=== PATIENT | male | born 1995 | race Caucasian/White ===

== ENCOUNTER 2017-05-17 07:58 | Observation (INO) | payer MEDICAID, SELFPAY ==
[2017-05-17] VITALS (11 sets, daily range): BP systolic 104–138; BP diastolic 69–85; PULSE 54–142; RESP 16–20; TEMP 36.3–36.7; O2SAT 96–100; BMI 23.3; BMI 25.0
--- NOTE | 2017-05-17 08:15 | RAD_ITS ---
STUDY: X-RAY CHEST REASON FOR EXAM: Male, 22 years old. Cough. Increased shortness of breath. TECHNIQUE: PA and lateral views of the chest. COMPARISON: Comparison is made with prior study dated January 13, 2017. FINDINGS: The lungs are clear and expanded. There is no demonstrated pleural abnormality. Normal size heart. Normal mediastinum and nikolas. Normal visualized pulmonary arteries. Normal visualized aortic arch and descending thoracic aorta. Normal visualized thoracic spine. Normal visualized ribs, clavicles, and shoulders. There is no demonstrated abnormality of the visualized soft tissue structures of the upper abdomen. RAD/Chest PA and Lateral IMPRESSION: Normal x-ray examination of the chest. Electronically Signed: David Babin MD at 8:56 EDT Tel [phone], Service support ,
--- NOTE | 2017-05-17 08:15 | EKG12_ITS ---
Test Reason : TACHY Blood Pressure : / mmHG Vent. Rate : 137 BPM Atrial Rate : 137 BPM P-R Int : 136 ms QRS Dur : 076 ms QT Int : 288 ms P-R-T Axes : 080 084 060 degrees QTc Int : 434 ms Sinus tachycardia Right atrial enlargement Borderline ECG Confirmed by FRANDY MIRELES, KAILEY ([id number]), editor producer MARY ROBERT ([id number] on 05/19/2017 1:01:56 PM Referred By: Confirmed By:KAILEY WISE MD
--- NOTE | 2017-05-17 08:29 | ED.DCSUM_ITS ---
- ER Visit Summary Date of Service: 05/17/17 [place] Complaint[place] [id number] getting out of bed and 0700 at work History of Present Illness: The patient is a 22 M with history of type 1 diabetes since the age of 8 who presents with near syncope so ?2. He states he feels as if he is floating. He states he does not feel well. He does not believe his blood sugar is elevated since he does not have increased thirst or urination. He denies any fever, chills or night sweats. He denies any ocular, visual or auditory symptoms. He denies sore throat or difficulty swallowing. He denies chest discomfort. Does complain of palpitations. He reported shortness of breath earlier, but presently he does not. He denies any abdominal pain, nausea, vomiting or diarrhea. He denies any dysuria, frequency , urgency or hematuria. He denies any myalgias or arthralgias. He denies any paresthesia, anesthesia or motor weakness. He denies any problems with balance. He states his heart rates up because he walked from work. Physical Examination: Since vitals are marked for a heart rate of 142. Respiratory rates document 20. He is breathing more rapidly than 20. He appears pale. He does not appear well. Head is atraumatic normocephalic. Pupils are equal round reactive. Extraocular muscles are intact. TMs are pearly white with landmarks noted. Nares patent with no drainage. Posterior pharynx without erythema or exudate. Uvula is midline. There is no dysphonia or dysphasia. Trachea is midline. There is no stridor with auscultation of the neck. Heart is rapid and regular without murmur, gallop or rub. Lungs are clear to auscultation with good movement of air bilaterally. There is no egophony. Breath sounds are symmetric. Abdomen is soft and nontender. There is no guarding or peritoneal findings. There is no palpable pulsatile mass. There is no abdominal bruit. Zamudio sign is negative. Negative Rovsing sign. There is no evidence of inguinal or umbilical hernia. He does have 2 scars which are well-healed. He apparently had abdominal wall abscesses and severe sepsis in the past. Patient is alert and oriented ?3. Motor is 5 over 5. Sensory is intact. DTRs are symmetric with no clonus or Babinski sign. Cranial 2 through 12 are intact. Cerebellar testing is normal. Test Results: EKG reveals a sinus tachycardia rate of 137. There appears to be right atrial enlargement. CBC is unremarkable. BMP is marked for CO2 of 18 and anion gap was 16. Glucose is 132. BUN is slightly elevated at 24. Urinalysis is remarkable for bilirubin and urobilinogen. For this reason a hepatic panel was ordered and indicates slight elevation in alk phos, 231. Troponin is less than 0.02. D-dimer is less than 0.27. Lactate is elevated 4.0. Urinalysis is negative for nitrites and blood. There is no pyuria; however, he does have bacteria. A urine culture was ordered. Emergency Department Course and Treatment: Patient was placed on a monitor and IV was established. 12-lead EKG was obtained as well as chest x-ray and appropriate blood work to evaluate his symptoms. Because patient is tachycardic and complained of shortness of breath with a pulse ox of 94% which is abnormal for a 22-year-old a d-dimer was ordered. Will assess his blood sugar as well. CBC was obtained to evaluate H&H. BMP to assess his CO2 and anion gap as well as blood sugar and electrolytes. Treatment Plan: IV fluids. Patient was question regarding herbal supplements [id number] meds. Father states he took 3 Tylenol this morning. Disposition: Post was called for observation/admission since he appears ill tachycardic with an anion gap acidosis with an elevated lactate of 4.0 Impression: 1. Anion gap acidosis, lactate 4.0 2. Hyperglycemia and a type I diabetic 3. Sinus tachycardia documented on monitor and EKG 4. Prerenal azotemia 5. Ketonuria ED Disposition - Plan for ED Patient: Chief Complaint: General Illness Referrals: Ron Schroeder MD [Primary Care Provider] -
[2017-05-17 08:36] LABS: Bedside Glucose 153 mg/dL (70-110)
[2017-05-17 08:48] LABS: Absolute Lymphocyte Count 3.67 X10^3/ul (0.83-4.51); Absolute Neutrophil Count 5.4 X10^3/uL (2.0-7.7); Basophil# 0.04 X10^3/uL; Basophil% 0.4 % (0-1); Eosinophil# 0.41 X10^3/uL; Hematocrit 43.4 % (40-54); Hemoglobin 14.1 g/dl (13.0-16.5); Lymphocyte # 3.67 X10^3/ul (4.0); Lymphocyte % 35.6 % (19-41); Mean Corp Hgb Conc 32.5 g/gl (32-36); Mean Corpuscular Hgb 26.6 pg (27.0-32.0); Mean Corpuscular Volume 81.7 fL (80-94); Mean Platelet Vol. 10.5 fl (6.2-12.0); Monocyte# 0.75 X10^3/uL; Monocyte% 7.3 % (0-10); Neutrophil # 5.39 X10^3/uL (2.7-7.7); Neutrophil % 52.3 % (47-70); Platelet Count 392 K/mm3 (150-450); Red Blood Count 5.31 M/mm3 (4.6-6.2); White Blood Count 10.3 K/mm3 (4.4-11.0)
[2017-05-17 08:58] LABS: D-Dimer Quantitative (DVT/PE) < 0.27 FEU/ug/m (0.27-0.49)
[2017-05-17 08:59] LABS: Anion Gap 16 (5-15); BUN 24 mg/dL (7-18); BUN/Creat Ratio 21.6 RATIO (10-20); Calcium,Total 8.9 mg/dL (8.5-10.1); Chloride 104 mmol/L (98-107); Creatinine, Serum 1.11 mg/dL (0.70-1.30); EST Glomerular Filtration Rate 90 mL/min (>60); Est Glom Filt Rate - Afr Amer 108 mL/min (>60); Estimated Creatinine Clearance 92.34 ml/min; Glucose 132 mg/dL (70-110); Potassium 3.8 mmol/L (3.5-5.1); Sodium Level 138 mmol/L (136-145)
[2017-05-17 09:02] LABS: POSITIVE COUNT NO; POSITIVE DIFFERENTIAL NO; POSITIVE MORPHOLOGY NO
[2017-05-17] MEDS: 0.9% Normal Saline 1,000 ML 1000 ML IV (09:28)
[2017-05-17 09:42] LABS: Red Blood Cells-Urine 0 SEEN /hpf (0-5)
[2017-05-17 09:45] LABS: Color, Urine Yellow (Yellow); Glucose, Dipstick 100 mg/dl (Normal); Ketone-Dipstick 50 mg/dl (Negative); Leukocyte Esterase-Dipstick 25 /ul (Negative); Nitrite-Dipstick Negative (Negative); Occult Blood-Urine Negative /ul (Negative); Protein-Dipstick 30 mg/dl (Negative); Specific Gravity, Urine 1.025 (1.002-1.030); Urine Bilirubin Dipstick 3 mg/dL (Negative); Urine Clarity Sl. Cloudy (Clear); Urine Urobilinogen 4 mg/dl (Normal)
[2017-05-17 09:52] LABS: Squamous Epithelial Cells - UA 0-5 SEEN /hpf (0-5); White Blood Cells 0-5 SEEN /hpf (0-5)
[2017-05-17 09:53] LABS: Bacteria 1+ /hpf (None Seen); Fine Granular Cast- Urine 0-5 SEEN /lpf (0-5); Hyaline Cast 5-10 SEEN /lpf (0-5); Mucous, Urine 3+ /hpf (<or=2+)
[2017-05-17 10:15] LABS: AST(SGOT) 24 U/L (15-37); Alanine Aminotransfer ALT/SGPT 46 U/L (12-78); Albumin, Serum 3.3 g/dL (3.4-5.0); Alkaline Phosphatase 231 U/L (45-117); Bilirubin, Direct 0.12 mg/dL (0.00-0.30); Globulin 3.9 g/dL (2.3-3.5); Protein, Total 7.2 g/dL (6.4-8.2)
--- NOTE | 2017-05-17 10:31 | NURSING ---
DR AMBER MADRID
--- NOTE | 2017-05-17 10:40 | PCM.HP.STD ---
Problem List (1) Lactic acidosis Status: Acute (2) Anemia Status: Chronic (3) Type I diabetes mellitus, uncontrolled Status: Acute (4) Ulcer of abdomen wall with fat layer exposed Status: Acute (5) DM type 1 (diabetes mellitus, type 1) Status: Chronic (6) Tobacco use Status: Chronic History of Present Illness Date of Admission: 05/17/17 Chief Complaint: Lightheadedness The patient is a 22 year old M past medical history significant for diabetes mellitus type 1, presented with lightheadedness as well as palpitation. Patient had apparently experienced nausea and vomiting a couple of days prior to his admission. He denied any fever no chills. He however complains of feeling lightheaded as well as palpitations and chest discomfort. He presented to the emergency department where patient was found to be slightly tachycardic with lactic acid levels greater than 4. Patient however did not have any evidence of infection. He was started on aggressive IV fluid resuscitation admitted to regular nursing floor for further management Past Medical History Past Medical History (Chronic Problems): Chronic Problems Anemia (Chronic) DM type 1 (diabetes mellitus, type 1) (Chronic) Tobacco use (Chronic) Allergies gluten Adverse Reaction (Verified 05/17/17 08:01) Nausea/Vom/Diarrhea wheat Adverse Reaction (Verified 05/17/17 08:01) Nausea Home Medications: Ambulatory Orders Medication Instructions Recorded Insulin Detemir [Levemir FlexPen] 20 units SC DAILY 05/17/17 Insulin Lispro [Humalog KwikPen] See Protocol SQ TIDCM 05/17/17 Surgical History: - - I+D abscesses prior, abdominal wound history prior. Smoking Status: Current some day smoker Tobacco Use: Cigarettes - *Family History Maternal History Items: Heart Disease - Mother of an AR in her 40s Paternal History Items: COPD, Heart Disease Review of Systems Constitutional: Reports: Weakness HEENT: Denies: Ear Pain, Eye Pain Cardiovascular: Reports: Palpitations Respiratory: Reports: Shortness of breath at rest. Denies: Cough Gastrointestinal: Reports: Nausea, Vomiting. Denies: Hematemesis, Hematochezia Genitourinary: Denies: Dysuria, Frequency, Hematuria, Urgency Musculoskeletal: Denies: Joint Pain, Joint Tenderness Skin: Denies: Rash Neurological: Denies: Focal weakness, Numbness, Tingling Psychiatric: Denies: Homicidal Ideations, Suicidal Ideations Hematologic/ Lymphatic: Denies: Easy Bruising, Easy Bleeding VTE Information - Inpt Only VTE Present on Admission: No VTE Mechan Device Prophylaxis: Knee High ANDREW Hose VTE Pharm Prophylaxis ordered?: Yes Patient Problems: Active and Suspected Problems Lactic acidosis (Acute) Objective: GENERAL: cooperative HEENT: Clear conjunctiva, NECK; supple, normal thyroid, CHEST: Clear to auscultation bilaterally, HEART: Regular S1 S2, tachycardic ABDOMEN: soft, non-tender, normoactive bowel sounds, RECTAL: deferred EXTREMITIES: No edema, no clubbing, no cyanosis. PHOTO PRINT SPECIALIST: Awake, no lateralizing signs. SKIN: No lesions no erythema, - Physical Exam Vital Signs Temp Pulse Resp BP Pulse Ox 98 F 97 16 108/70 97 05/17/17 07:59 05/17/17 10:30 05/17/17 10:30 05/17/17 10:30 05/17/17 10:30 Oxygen Delivery Method Room Air Weight: 63.503 kg Body Mass Index (BMI) 23.3 Finger Stick Blood Glucose 153 Laboratory Tests Past 24 Hrs 05/17/17 05/17/17 05/17/17 08:30 08:30 08:30 WBC 10.3 RBC 5.31 Hgb 14.1 Hct 43.4 MCV 81.7 MCH 26.6 L MCHC 32.5 RDW 16.0 H RDW Differential 48.0 H Plt Count 392 MPV 10.5 Immature Gran % (Auto) 0.400 Neut % (Auto) 52.3 Lymph % (Auto) 35.6 [place] % (Auto) 7.3 Eos % (Auto) 4.0 Baso % (Auto) 0.4 Absolute Neuts (auto) 5.4 Absolute Lymphs (auto) 3.67 Total Counted Not Reportable D-Dimer Quant (PE/DVT) < 0.27 L Sodium 138 Potassium 3.8 Chloride 104 Carbon Dioxide 18.0 L Anion Gap 16 H BUN 24 H Creatinine 1.11 Estim Creat Clear Calc 92.34 Est GFR (MDRD) Af Amer 108 Est GFR (MDRD) Non-Af 90 BUN/Creatinine Ratio 21.6 H Glucose 132 H Lactic Acid Calcium 8.9 Total Bilirubin Direct Bilirubin AST ALT Alkaline Phosphatase Troponin I < 0.02 Total Protein Albumin Globulin Urine Color Urine Clarity Urine pH Ur Specific [place] Urine Protein Urine Glucose (UA) Urine Ketones Urine Occult Blood Urine Nitrite Urine Bilirubin Urine Urobilinogen Ur Leukocyte Esterase Urine RBC Urine WBC Ur Squamous Epith Cells Urine Bacteria Hyaline Casts Fine Granular Casts Urine Mucus 05/17/17 05/17/17 05/17/17 08:30 08:30 09:35 WBC RBC Hgb Hct MCV MCH MCHC RDW RDW Differential Plt Count MPV Immature Gran % (Auto) Neut % (Auto) Lymph % (Auto) [place] % (Auto) Eos % (Auto) Baso % (Auto) Absolute Neuts (auto) Absolute Lymphs (auto) Total Counted D-Dimer Quant (PE/DVT) Sodium Potassium Chloride Carbon Dioxide Anion Gap BUN Creatinine Estim Creat Clear Calc Est GFR (MDRD) Af Amer Est GFR (MDRD) Non-Af BUN/Creatinine Ratio Glucose Lactic Acid 4.0 H* Calcium Total Bilirubin 0.30 Direct Bilirubin 0.12 AST 24 ALT 46 Alkaline Phosphatase 231 H Troponin I Total Protein 7.2 Albumin 3.3 L Globulin 3.9 H Urine Color Yellow Urine Clarity Sl. Cloudy Urine pH 6.0 Ur Specific [place] 1.025 Urine Protein 30 H Urine Glucose (UA) 100 H Urine Ketones 50 H Urine Occult Blood Negative Urine Nitrite Negative Urine Bilirubin 3 H Urine Urobilinogen 4 H Ur Leukocyte Esterase 25 H Urine RBC 0 SEEN Urine WBC 0-5 SEEN Ur Squamous Epith Cells 0-5 SEEN Urine Bacteria 1+ Hyaline Casts 5-10 SEEN Fine Granular Casts 0-5 SEEN Urine Mucus 3+ POC Glucose 05/17/17 08:23 POC Glucose 153 H Assessment/Plan Active and Suspected Problems Lactic acidosis (Acute) Patient is a 22-year-old gentleman presenting with nausea vomiting as well as tachycardia. Patient was found to have lactic acidosis without identifiable cause 1. Acute lactic acidosis suspected to be secondary to severe dehydration resultant hypoperfusion resulting in elevated lactic acid level. Sepsis was ruled out patient admitted to regular nursing floor managed with aggressive IV fluid resuscitation with monitoring of electrolyte 2. Type 1 diabetes mellitus. Patient blood glucose well controlled on his home regimen this was continued has slightly elevated anion gap 3. Suspected gastritis possibly contributing to 1 patient placed on PPI X 4. Tobacco dependence counseled on cessation, offered nicotine patch for tobacco cravings 5. DVT prophylaxis low risk; did encourage early ambulation
--- NOTE | 2017-05-17 10:46 | NURSING ---
MED SURG [facility]IDOSIS[facility]eron[facility]
[2017-05-17 12:00] LABS: Bedside Glucose 140 mg/dL (70-110)
[2017-05-17] MEDS: 0.9% Normal Saline 1,000 ML 200 ML IV ×3 (12:28→22:21)
[2017-05-17] MEDS: 0.9% NaCl Peripheral Flush Adult/Peds IV (12:29)
[2017-05-17 12:43] LABS: Amphetamine Urine VISTA NEGATIVE (<1000 ng/mL); Barbiturate Urine VISTA NEGATIVE (< 200 ng/mL); Benzodiazepine Urine VISTA NEGATIVE (< 200 ng/mL); Cocaine Urine VISTA NEGATIVE (< 300 ng/mL); Ecstacy Urine VISTA NEGATIVE (< 500 ng/mL); Methadone Urine VISTA NEGATIVE (< 300 ng/mL); PCP Urine VISTA NEGATIVE (< 25 ng/mL); THC Urine VISTA NEGATIVE (< 50 ng/mL); Vista UDS pH Range 5
[2017-05-17 13:39] LABS: Alcohol, Blood (Medical)-Serum < 3.0 mg/dL
[2017-05-17 15:38] LABS: Lactic Acid 0.7 mmol/L (0.4-2.0)
[2017-05-17 15:41] LABS: Anion Gap 14 (5-15); BUN 18 mg/dL (7-18); BUN/Creat Ratio 31.5 RATIO (10-20); Calcium,Total 7.9 mg/dL (8.5-10.1); Chloride 107 mmol/L (98-107); Creatinine, Serum 0.57 mg/dL (0.70-1.30); EST Glomerular Filtration Rate 193 mL/min (>60); Est Glom Filt Rate - Afr Amer 233 mL/min (>60); Estimated Creatinine Clearance 166.37 ml/min; Glucose 156 mg/dL (70-110); Potassium 4.2 mmol/L (3.5-5.1); Sodium Level 140 mmol/L (136-145)
--- NOTE | 2017-05-17 16:35 | NURSING ---
ACCUCHECK 575 - DR CLARK MADE AWARE - NEW ORDERS RECEIVED
[2017-05-17 16:41] LABS: Bedside Glucose > 500 mg/dL (70-110)
[2017-05-17 19:05] LABS: Bedside Glucose 361 mg/dL (70-110)
[2017-05-17 21:16] LABS: Reflex Lactate? Y
[2017-05-17 22:11] LABS: Bedside Glucose 440 mg/dL (70-110)
[2017-05-18] VITALS (8 sets, daily range): BP systolic 96–121; BP diastolic 55–82; PULSE 91–102; RESP 16–18; TEMP 36.3–37.1; O2SAT 100
[2017-05-18 03:02] LABS: Bedside Glucose 258 mg/dL (70-110)
[2017-05-18] MEDS: 0.9% Normal Saline 1,000 ML 200 ML IV ×2 (03:31→09:00)
[2017-05-18 06:03] LABS: Hematocrit 34.1 % (40-54); Mean Corp Hgb Conc 32.3 g/gl (32-36); Mean Corpuscular Hgb 27.2 pg (27.0-32.0); Mean Corpuscular Volume 84.2 fL (80-94); Mean Platelet Vol. 10.6 fl (6.2-12.0); Platelet Count 296 K/mm3 (150-450); RBC Distribution Width SD 48.2 fl (35.1-43.9); Red Blood Count 4.05 M/mm3 (4.6-6.2); White Blood Count 9.1 K/mm3 (4.4-11.0)
[2017-05-18 06:04] LABS: Scan Indicated on CBC? Y/N NO
[2017-05-18 06:12] LABS: Anion Gap 13 (5-15); BUN 17 mg/dL (7-18); BUN/Creat Ratio 27.3 RATIO (10-20); Calcium,Total 7.4 mg/dL (8.5-10.1); Chloride 105 mmol/L (98-107); Creatinine, Serum 0.62 mg/dL (0.70-1.30); EST Glomerular Filtration Rate 175 mL/min (>60); Est Glom Filt Rate - Afr Amer 212 mL/min (>60); Estimated Creatinine Clearance 152.96 ml/min; Glucose 156 mg/dL (70-110); Magnesium 1.9 mg/dL (1.8-2.4); Potassium 3.8 mmol/L (3.5-5.1); Sodium Level 139 mmol/L (136-145)
[2017-05-18 06:16] LABS: Bedside Glucose 176 mg/dL (70-110)
--- NOTE | 2017-05-18 09:59 | DCINST_ITS ---
- Discharge Diagnoses Current Active Problems: Current Active and Chronic Problems Lactic acidosis (Acute) You will use the following diet at home:: Calorie/Carbohydrate Controlled ( specify 1200, 1400, etc) - 1800 Your food should be the consistency of: Regular Discharge Activity: Return to Normal Activity, May not drive while taking narcotic pain medications. Allergies/Adverse Reactions: Allergies gluten Adverse Reaction (Verified 05/17/17 08:01) Nausea/Vom/Diarrhea wheat Adverse Reaction (Verified 05/17/17 08:01) Nausea Medications to take at Discharge Insulin Lispro [Humalog KwikPen] See Protocol SQ TIDCM 05/17/17 Insulin Detemir [Levemir FlexPen] 20 units SC BIDAC #1 05/18/17 The following prescriptions were given: Insulin Detemir [Levemir FlexPen] 20 units SC BIDAC #1 Primary Care Physician: Ron Schroeder MD [Primary Care Provider] - Please follow up with your Primary Care Physician in: [place] 5-7 DAYS Proposed Discharge Date: 05/18/17
--- NOTE | 2017-05-18 09:59 | PCM.DC.SUM ---
Discharge Date and Diagnosis - Problem List Patient Problems: Active and Suspected Problems Lactic acidosis (Acute) Date of Admission: 05/17/17 Date of Discharge: 05/18/17 - Primary Discharge Diagnosis Active and Suspected Problems Lactic acidosis (Acute) - Secondary Discharge Diagnosis Chronic Problems Anemia (Chronic) DM type 1 (diabetes mellitus, type 1) (Chronic) Tobacco use (Chronic) Hospital Course and Treatment Imaging Results: Clinical Impression(s) from Imaging Studies Chest X-Ray 05/17/17 08:15 IMPRESSION: Normal x-ray examination of the chest. Electronically Signed: David Babin MD at 8:56 EDT Tel [phone], Service support , Operations: None Summary of Care Provided: Patient is a 22-year-old gentleman presenting with nausea vomiting as well as tachycardia. Patient was found to have lactic acidosis without identifiable cause 1. Acute lactic acidosis suspected to be secondary to severe dehydration resultant hypoperfusion resulting in elevated lactic acid level. Sepsis was ruled out patient admitted to regular nursing floor managed with aggressive IV fluid resuscitation with monitoring of electrolyte 2. Type 1 diabetes mellitus. Patient blood glucose well controlled on his home regimen this was continued; 3. Suspected gastritis possibly contributing to 1 patient placed on PPI 4. Tobacco dependence counseled on cessation, offered nicotine patch for tobacco cravings 5. DVT prophylaxis low risk; did encourage early ambulation Discharge Diet: 1800 Calorie Control Diet Discharge Activity: Return to Normal Activity, May not drive while taking narcotic pain medications. Home Medications: Medications to take at Discharge Insulin Lispro [Humalog KwikPen] See Protocol SQ TIDCM 05/17/17 Insulin Detemir [Levemir FlexPen] 20 units SC BIDAC #1 05/18/17 Following Prescrptions Were Given to Patient: Insulin Detemir [Levemir FlexPen] 20 units SC BIDAC #1 Primary Care Physician: Ron Schroeder MD [Primary Care Provider] - Please follow up with your Primary Care Physician in: [place] 5-7 DAYS Disposition: Home Minutes spent on discharge:: 35 Patient Condition:: Stable Meaningful Use Info Meaningful Use Diagnoses (Choose all that apply): None applicable
[2017-05-18 10:35] LABS: Bedside Glucose 279 mg/dL (70-110)
[2017-05-18 11:45] LABS: Bedside Glucose 268 mg/dL (70-110)
[2017-05-18 14:11] LABS: Bedside Glucose 134 mg/dL (70-110)
== END 2017-05-18 15:50 | disposition home or self-care (01) | DRG 422 ==
LOC: ED 08-12 06:17 → MS2 03-14 06:09
PROVIDERS: Admitting Provider Internal Medicine; Emergency Provider Emergency Medicine; Family Provider Pediatrics; PCP Pediatrics; Visit Provider Internal Medicine
DX: E87.2 Acidosis (principal); F17.210 Nicotine dependence, cigarettes, uncomplicated; D64.9 Anemia, unspecified; Z79.4 Long term (current) use of insulin; Z23 Encounter for immunization; R00.0 Tachycardia, unspecified; E10.65 Type 1 diabetes mellitus with hyperglycemia
CPT/HCPCS: 36415; 71020; 80048; 80076; 80307; 80320; 81001; 82962; 83605; 83735; 84484; 85025; 85027; 85379; 87040; 87086; 87088; 93005; 96360; 96361; 99218; 99285; J7030; 90686; A4216; G0378; G0480

== ENCOUNTER 2017-11-20 18:20 | Emergency (ER) | payer MEDICAID, SELFPAY ==
[2017-11-20] VITALS (7 sets, daily range): BP systolic 147–164; BP diastolic 81–115; PULSE 120–147; RESP 14–20; TEMP 36.4–36.8; O2SAT 97–100
[2017-11-20] MEDS: Ondansetron 4 MG/2 ML Vial IV (18:25)
[2017-11-20] MEDS: HYDROmorphone 1 MG/ML Syringe IV ×4 (18:25→20:11)
[2017-11-20] MEDS: Diphth,Pertuss(Acell),Tet Vac 0.5 ML Vial IM (18:38)
[2017-11-20] MEDS: Lactated Ringers 1,000 ML 150 ML IV (18:41)
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
[2017-11-20 19:10] LABS: Absolute Lymphocyte Count 5.06 X10^3/ul (0.83-4.51); Absolute Neutrophil Count 4.8 X10^3/uL (2.0-7.7); Basophil# 0.05 X10^3/uL; Basophil% 0.4 % (0-1); Eosinophil# 0.97 X10^3/uL; Eosinophils% 8.3 % (0-5); Hematocrit 37.1 % (40-54); Hemoglobin 11.8 g/dl (13.0-16.5); Lymphocyte # 5.06 X10^3/ul (4.0); Lymphocyte % 43.4 % (19-41); Mean Corp Hgb Conc 31.8 g/gl (32-36); Mean Corpuscular Volume 88.1 fL (80-94); Mean Platelet Vol. 10.7 fl (6.2-12.0); Monocyte# 0.77 X10^3/uL; Monocyte% 6.6 % (0-10); Neutrophil # 4.78 X10^3/uL (2.7-7.7); Platelet Count 343 K/mm3 (150-450); RBC Distribution Width CV 13.4 % (11.6-14.6); RBC Distribution Width SD 42.9 fl (35.1-43.9); Red Blood Count 4.21 M/mm3 (4.6-6.2); White Blood Count 11.7 K/mm3 (4.4-11.0)
[2017-11-20 19:12] LABS: Differential Indicated SCAN CRITERIA MET; POSITIVE COUNT NO; POSITIVE DIFFERENTIAL YES; POSITIVE MORPHOLOGY NO
--- NOTE | 2017-11-20 19:22 | ED.RN ---
DR. MADRID MADE AWARE THAT PATIENT'S HEART RATE IS INCREASING. PATIENT IS IN INCREASED PAIN SO DILAUDID WAS ORDERED AND WILL BE GIVEN BY THIS NURSE.
--- NOTE | 2017-11-20 19:35 | NURSING ---
DILAUDID 1 MG GIVEN BY THIS NURSE FOR STINGING PAIN PER PT. FAMILY IS AT THE BEDSIDE.
[2017-11-20 19:52] LABS: Anion Gap 11 (5-15); BUN 29 mg/dL (7-18); Calcium,Total 7.6 mg/dL (8.5-10.1); Chloride 103 mmol/L (98-107); Creatinine, Serum 1.21 mg/dL (0.70-1.30); EST Glomerular Filtration Rate 81 mL/min (>60); Est Glom Filt Rate - Afr Amer 98 mL/min (>60); Estimated Creatinine Clearance 97.52 ml/min; Glucose 517 mg/dL (74-106); Potassium 4.3 mmol/L (3.5-5.1); Sodium Level 135 mmol/L (136-145)
--- NOTE | 2017-11-20 20:01 | ED.RN ---
glucose [address] called from the lab. dr christensen aware
[2017-11-20 20:08] LABS: Differential Comment SCANNED
== END 2017-11-20 20:34 | disposition designated cancer center or children's hospital (05) ==
PROVIDERS: Emergency Provider Emergency Medicine; Family Provider Pediatrics; PCP Pediatrics
DX: T23.292A Burn of second degree of multiple sites of left wrist and hand, initial encounter (principal); T23.291A Burn of second degree of multiple sites of right wrist and hand, initial encounter; T20.14XA Burn of first degree of nose (septum), initial encounter; T20.16XA Burn of first degree of forehead and cheek, initial encounter; T20.17XA Burn of first degree of neck, initial encounter; T25.122A Burn of first degree of left foot, initial encounter; T31.30 Burns involving 30-39% of body surface with 0% to 9% third degree burns; W40.1XXA Explosion of explosive gases, initial encounter; Y93.G3 Activity, cooking and baking; Y92.9 Unspecified place or not applicable; Y99.8 Other external cause status; E10.9 Type 1 diabetes mellitus without complications; Z79.4 Long term (current) use of insulin; Z72.0 Tobacco use
CPT/HCPCS: 80048; 85025; 90715; 96361; 96374; 96375; 96376; 99285; J7030; J7120; A4216; J2405

== ENCOUNTER 2018-03-24 18:31 | Emergency (ER) | payer MEDICAID, SELFPAY ==
[2018-03-24 18:32] VITALS: BP 119/67; PULSE 100; RESP 16; TEMP 36.1; O2SAT 99; BMI 22.6
--- NOTE | 2018-03-24 18:52 | ED.VISSUMM ---
- ER Visit Summary Date of Service: 03/24/18 Chief Complaint: [Dental pain] History of Present Illness: The patient is a 23 M presents the emergency department complaint of dental pain that has worsened over last 2-3 days. She denies any trauma or fever. Patient states that he can see a dentist that his father knows tomorrow. Patient is requesting something for pain.] Physical Examination: [HEENT-PERRLA, EOMI. Cranial nerves II through XII grossly intact. TMs clear. Mucous membranes moist. No adenopathy. Patient has obvious right-sided facial swelling to the upper part of the face. Patient has tenderness to palpation over tooth #4. Patient has gingival fluctuance and erythema noted. No facial cellulitis. Cardiovascular-regular rate and rhythm without murmur or ectopy Lungs-clear to auscultation, chest wall stable without crepitus or subcu emphysema Abdomen-normoactive bowel sounds, soft, nontender, no rebound or rigidity, no peritoneal signs. Extremities-intact ?4, normal range of motion, normal pulses, atraumatic] Test Results: [None indicated] Emergency Department Course and Treatment: [Patient was offered incision and drainage of suspected abscess to which he agreed. Using a 18-gauge needle stab incision was made into the most fluctuant part of the gingiva and large amount of free-flowing purulent debris was expressed.] Treatment Plan: [Patient was started on clindamycin and [place] for pain] Disposition: [Discharged home in stable condition]. Patient advised to follow-up with dentist. Impression: [Dental abscess with incision and drainage] This note was generated with [employer] dictation software. It may contain incorrect words, spelling, and punctuation that were not noted in review of the chart prior to signing ED Disposition - Plan for ED Patient: Chief Complaint: Dental Referrals: Edwina Quintero NP-C [Primary Care Provider] -
--- NOTE | 2018-03-24 18:54 | ED.DEP ---
ED Disposition - Plan for ED Patient: Chief Complaint: Dental Instructions: ED Abscess Dental Prescriptions: Hydrocodone/Acetaminophen [[place] 5-325 Tablet] 1 - 2 ea PO 4X/DAY PRN PRN 3 Days #12 tab PRN Reason: Pain Clindamycin HCl [Cleocin] 300 mg PO Q6H #40 cap Referrals: Edwina Quintero, RESEARCH INTERN-C [Primary Care Provider] - Additional Instructions: see your dentist
[2018-03-24] MEDS: Clindamycin HCl 150 MG Capsule 300 MG PO (19:04)
== END 2018-03-24 19:05 | disposition home or self-care (01) ==
PROVIDERS: Emergency Provider Emergency Medicine; Family Provider Pediatrics; PCP Pediatrics
DX: K04.7 Periapical abscess without sinus (principal); E11.9 Type 2 diabetes mellitus without complications; Z79.4 Long term (current) use of insulin
CPT/HCPCS: 41800; 99283

== ENCOUNTER 2018-09-30 07:48 | Emergency (ER) | payer MEDICAID, SELFPAY ==
[2018-09-30 07:49] VITALS: BP 122/60; PULSE 120; RESP 18; TEMP 37.2; O2SAT 98; BMI 26.6
--- NOTE | 2018-09-30 07:58 | ED.DCSUM_ITS ---
- ER Visit Summary Date of Service: 09/30/18 Chief Complaint: Cough, congestion, fever History of Present Illness: The patient is a 23 M presents to the emergency department with a week of upper respiratory symptoms. Scant cough, mild nasal drainage, mild sore throat. His sore throat and drainage has improved. However, his cough is worsened. He is describing productive sputum. He also admits to subjective fever and chills. He denies any chest pain. He denies any leg swelling orthopnea. The patient is a diabetic. He states his sugars been running normal for him. He denies headache or visual change. His mother recently had pneumonia. He does not smoke. Physical Examination: Vital signs reviewed General: Well-nourished, well-developed Head: Normocephalic, atraumatic Eyes: Pupils equal and reactive, extraocular muscles intact Neck, supple, no lymphadenopathy Heart: Regular rate and rhythm Respiratory: No distress, diminished with wheezing in all serna Abdomen: Soft, nontender, nondistended, no peritoneal signs Back: Nontender Extremities: Nontender, no edema, no cords Skin: Normal color no rash Neuro: Alert and oriented, no focal or lateralizing deficits Test Results: [] Emergency Department Course and Treatment: The patient has no focal change in lung sounds. He has wheezing in all serna with symptoms for greater than 1 week. I do feel that the most prudent plan will be to treat him for infectious bronchitis. I do not see a benefit with prednisone given his significant diabetic history and history of DKA. Patient will also be dispensed an inhaler. He is afebrile here. He has no hypoxia. I do feel that he is safe for outpatient therapy. Treatment Plan: [] Disposition: Discharge Impression: 1. Infectious bronchitis This note was generated with [employer] dictation software. It may contain incorrect words, spelling, and punctuation that were not noted in review of the chart prior to signing ED Disposition - Plan for ED Patient: Instructions: ED Upper Resp Infec Abx Tx Prescriptions: Amox/Clavulanate Tablet [Augmentin Tablet] 875 mg PO Q12H #20 tab Referrals: Ron Schroeder MD [Primary Care Provider] -
[2018-09-30] MEDS: Amox/Clavulanate 875 MG Tablet PO (08:11)
== END 2018-09-30 08:12 | disposition home or self-care (01) ==
LOC: ED 08:03
PROVIDERS: Emergency Provider Emergency Medicine; Family Provider Family Medicine; PCP Family Medicine
DX: J40 Bronchitis, not specified as acute or chronic (principal); E11.9 Type 2 diabetes mellitus without complications; Z79.4 Long term (current) use of insulin
CPT/HCPCS: 90471; 99284

== ENCOUNTER 2019-01-17 15:28 | Observation (INO) | payer MEDICAID, SELFPAY ==
[2019-01-17] VITALS (14 sets, daily range): BP systolic 113–146; BP diastolic 59–90; PULSE 106–143; RESP 14–22; TEMP 36.6–37.4; O2SAT 98–100; BMI 24.4; BMI 21.7
[2019-01-17 15:50] LABS: Bedside Glucose 386 mg/dL (70-110)
--- NOTE | 2019-01-17 15:53 | EKG12_ITS ---
Test Reason : TACHYCARDIA Blood Pressure : / mmHG Vent. Rate : 124 BPM Atrial Rate : 124 BPM P-R Int : 142 ms QRS Dur : 080 ms QT Int : 298 ms P-R-T Axes : 074 066 060 degrees QTc Int : 428 ms Sinus tachycardia Right atrial enlargement Borderline ECG Confirmed by NIKKI GUZMAN ([id number]), loan expeditor LUIZA COUGHLIN ([id number]) on 01/19/2019 11:46:47 AM Referred By: Ivanna Saenz Confirmed By:CHAVEZ GUZMAN
--- NOTE | 2019-01-17 16:00 | RAD_ITS ---
STUDY: X-RAY CHEST REASON FOR EXAM: Male, 23 years old. Shortness of breath TECHNIQUE: PA and lateral views of the chest. COMPARISON: 05/17/2017 FINDINGS: The lungs are clear and expanded. There is no demonstrated pleural abnormality. Normal size heart. Normal mediastinum and nikolas. Normal visualized pulmonary arteries. Normal visualized aortic arch and descending thoracic aorta. Normal visualized thoracic spine. Normal visualized ribs, clavicles, and shoulders. There is no demonstrated abnormality of the visualized soft tissue structures of the upper abdomen. RAD/Chest PA and Lateral IMPRESSION: Normal x-ray examination of the chest. Electronically Signed: Osbaldo Sandy MD at 16:31 EDT Tel , Service support ,
--- NOTE | 2019-01-17 16:02 | ED.DCSUM_ITS ---
- ER Visit Summary Date of Service: 01/17/19 Chief Complaint: Chest pain and shortness of breath History of Present Illness: The patient is a 23 M who is an insulin-dependent diabetic. He states he went to bed last night feeling fine. When he woke this morning he felt his heart racing and felt short of breath. He states that he feels like he got hit in the chest with a sledgehammer that had nails on it. He states he is felt like this in the past but does not know what they found. He states his blood sugar typically runs in the low 100s. Today he notes his blood sugar is greater than 400. No nausea or vomiting. He notes he had a small amount of diarrhea last night. He states he had a cough last night with some mild sputum production but that has resolved. He denies any recent travel or recent surgeries. No prior history of DVT or PE. Patient denies any rashes. He states he ate a little bit today but has not felt like eating. 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 He went to urgent care and was sent to the emergency room. Physical Examination: Afebrile 144/90 heart rate is 136 respirations are 19 pulse ox is 99% on room air Gen: Well-nourished well-developed Head: Normocephalic atraumatic Eyes: Perrl EOMI ENT: TMs clear no rhinorrhea moist mucous membranes Neck: Supple no lymphadenopathy no JVD nontender CVS: Regular rate tachycardic rhythm no murmurs normal S1-S2 Respiratory: No distress clear to auscultation bilaterally chest nontender Abdomen: Soft nontender nondistended normal bowel sounds no masses Back: Nontender Extremity: Nontender no edema Skin: Normal color no rash skin graft changes of the bilateral hands Neuro: alert orientated ?3 CN II-XII intact normal strength sensation Psych: Normal affect normal mood Test Results: EKG shows a sinus tachycardia at a rate of 124 that appears unchanged from May 2017 White count returns elevated at 22. Troponin negative d-dimer normal. Ketones are moderate lactic acid 3.4. Urinalysis normal. Chest x-ray negative. Emergency Department Course and Treatment: IV was established and blood was drawn. He received 3 L of IV fluids. Insulin drip was started. His heart rate is down to 110. Plan is admission to the ICU for DKA. Impression: 1. Diabetic ketoacidosis 2. Critical care time 35 minutes This note was generated with [employer] dictation software. It may contain incorrect words, spelling, and punctuation that were not noted in review of the chart prior to signing ED Disposition - Plan for ED Patient: Referrals: Deangelo Noel MD [Primary Care Provider] -
[2019-01-17] MEDS: 0.9% Normal Saline 1,000 ML 1000 ML IV ×2 (16:04→17:09)
[2019-01-17 16:13] LABS: Absolute Neutrophil Count 15.6 X10^3/uL (2.0-7.7); Basophil# 0.06 X10^3/uL; Basophil% 0.3 % (0-1); Eosinophil# 0.99 X10^3/uL; Eosinophils% 4.5 % (0-5); Hematocrit 41.1 % (40-54); Hemoglobin 12.6 g/dl (13.0-16.5); Lymphocyte % 19.9 % (19-41); Mean Corp Hgb Conc 30.7 g/gl (32-36); Mean Corpuscular Volume 71.9 fL (80-94); Mean Platelet Vol. 10.6 fl (6.2-12.0); Monocyte% 4.5 % (0-10); Neutrophil # 15.64 X10^3/uL (2.7-7.7); Neutrophil % 70.5 % (47-70); Platelet Count 396 K/mm3 (150-450); RBC Distribution Width CV 17.3 % (11.6-14.6); RBC Distribution Width SD 45.2 fl (35.1-43.9); Red Blood Count 5.72 M/mm3 (4.6-6.2); White Blood Count 22.2 K/mm3 (4.4-11.0)
[2019-01-17 16:17] LABS: Prothrombin Time (Protime)PT. 13.4 SECONDS (11.7-14.9)
[2019-01-17 16:18] LABS: Partial Thromboplast Time 23.7 Seconds (24.1-36.2)
[2019-01-17 16:23] LABS: AST(SGOT) 17 U/L (15-37); Alanine Aminotransfer ALT/SGPT 30 U/L (16-61); Albumin, Serum 3.5 g/dL (3.2-5.0); Alkaline Phosphatase 210 U/L (45-117); Anion Gap 14 (5-15); BUN 19 mg/dL (7-18); BUN/Creat Ratio 18.3 RATIO (10-20); Bilirubin, Direct 0.07 mg/dL (0.00-0.30); Calcium,Total 8.6 mg/dL (8.5-10.1); Chloride 105 mmol/L (98-107); Creatinine, Serum 1.04 mg/dL (0.70-1.30); D-Dimer Quantitative (DVT/PE) < 0.27 FEU/ug/m (0.27-0.49); EST Glomerular Filtration Rate 95 mL/min (>60); Est Glom Filt Rate - Afr Amer 115 mL/min (>60); Globulin 4.2 g/dL (2.2-4.2); Glucose 396 mg/dL (74-106); Lipase 88 U/L (73-393); Potassium 4.1 mmol/L (3.5-5.1); Protein, Total 7.7 g/dL (6.4-8.2); Sodium Level 132 mmol/L (136-145)
[2019-01-17 16:36] LABS: Differential Indicated SCAN CRITERIA MET; POSITIVE COUNT NO; POSITIVE DIFFERENTIAL NO; POSITIVE MORPHOLOGY YES
[2019-01-17 16:37] LABS: Platelet Estimate ADEQUATE (ADEQ)
[2019-01-17 16:38] LABS: Anisocytosis 1+; Microcytosis 1+
[2019-01-17 16:39] LABS: Bacteria 0 SEEN /hpf (None Seen); Mucous, Urine 0 SEEN /hpf (<or=2+); Red Blood Cells-Urine 0 SEEN /hpf (0-5); Squamous Epithelial Cells - UA 0 SEEN /hpf (0-5); White Blood Cells 0 SEEN /hpf (0-5)
[2019-01-17 16:49] LABS: Color, Urine Straw (Yellow); Glucose, Dipstick 1000 mg/dl (Normal); Leukocyte Esterase-Dipstick Negative /ul (Negative); Nitrite-Dipstick Negative (Negative); Occult Blood-Urine Negative /ul (Negative); Protein-Dipstick Negative (Negative); Urine Bilirubin Dipstick Negative (Negative); Urine Clarity Clear (Clear); Urine Urobilinogen Normal (Normal)
[2019-01-17 16:51] LABS: Ketone-Dipstick 150 mg/dl (Negative)
[2019-01-17 16:55] LABS: Amphetamine Urine VISTA NEGATIVE (<1000 ng/mL); Barbiturate Urine VISTA NEGATIVE (< 200 ng/mL); Benzodiazepine Urine VISTA NEGATIVE (< 200 ng/mL); Cocaine Urine VISTA NEGATIVE (< 300 ng/mL); Ecstacy Urine VISTA NEGATIVE (< 500 ng/mL); Methadone Urine VISTA NEGATIVE (< 300 ng/mL); PCP Urine VISTA NEGATIVE (< 25 ng/mL); THC Urine VISTA NEGATIVE (< 50 ng/mL); Vista UDS pH Range 5
[2019-01-17 17:10] LABS: Lactic Acid 3.4 mmol/L (0.4-2.0)
--- NOTE | 2019-01-17 17:10 | ED.RN ---
lactic 3.[address] lab[address] dr wilson aware
[2019-01-17 17:15] LABS: Blood Gas Specimen Type VEN; Time Given 1711; VBG BASE EXCESS -12 mmol/L (-1.0-3.5); VBG Bicarbonate 14 mmol/L (22-26); VBG Oxygen Content 15 mmol/L (23-33); VBG PO2 52 mmHg (25-40); VBG SO2 83 % (50-70); VBG pCO2 28.6 mmHg (41-51)
[2019-01-17 18:01] LABS: Bedside Glucose 97 mg/dL (70-110)
--- NOTE | 2019-01-17 18:05 | NURSING ---
DR MITCHELL FOR DR BAEZA
--- NOTE | 2019-01-17 18:12 | NURSING ---
ICU DKA PAINTSIL
[2019-01-17] MEDS: Dext 5%-0.45% NS 1,000 ML 125 ML IV (18:17)
[2019-01-17] MEDS: Dextrose 50%-Water 25 GM/50 ML DISP.SYRIN IV ×2 (18:47→19:52)
[2019-01-17 19:21] LABS: Bedside Glucose 64 mg/dL (70-110)
[2019-01-17 19:51] LABS: Bedside Glucose 53 mg/dL (70-110)
--- NOTE | 2019-01-17 19:53 | HP.PCM_ITS ---
Problem List (1) Tobacco use Status: Chronic (2) DM type 1 (diabetes mellitus, type 1) Status: Chronic Qualifiers: Diabetes mellitus complication status: with neurologic complications Diabetes mellitus complication detail: with unspecified neuropathy Qualified Code(s): E10.40 - Type 1 diabetes mellitus with diabetic neuropathy, unspecified Comment: No data for review. Enc to bring meter. I did provide patient with very specific sliding scale to use which was helpful in the past. He is ask to see me at least every three months. Has appointment to have kendall removed from foot. (3) DKA (diabetic ketoacidoses) Status: Acute Qualifiers: Diabetes mellitus type: type 1 Diabetes mellitus complication detail: without coma Qualified Code(s): E10.10 - Type 1 diabetes mellitus with ketoacidosis without coma History of Present Illness Date of Admission: 01/17/19 Chief Complaint: Chest pain, shortness of breath The patient is a 23 year old M with past medical history of type 1 DM, who comes in complaining of shortness of breath and palpitations. He also complains of chest pain that is described like a sledgehammer hitting his chest. He has history of DKA. He takes his insulin regularly. He denies missing any insulin doses. Denies any fever or chills or shortness of breath. Denies any recent illnesses. Denied any diarrhea or abdominal pain Vitals in the ED show temperature of 90 8.4F, heart rate 110, blood pressure 121/71, respiratory rate is 19, SPO2 100% on room air. His admitting lab showed WBC Hb 12.6, Plt 396, INR 1.0, D-dimer 0.27, his BMP shows sodium of 132, potassium 4.1, chloride 105, bicarbonate was 13, anion gap was 14, BUN is 19, creatinine is 1.04, blood glucose is 396, lactic acid is 3.4. UA is unremarkable. Urine tox is negative for cannabinoids. VBG showed pH 7.3, PO2 52, Past Medical History Past Medical History (Chronic Problems): Chronic Problems (Last Updated 12/23/17 @ 16:10 by Hermila Cast) Tobacco use (Chronic) DM type 1 (diabetes mellitus, type 1) (Chronic) No data for review. Enc to bring meter. I did provide patient with very specific sliding scale to use which was helpful in the past. He is ask to see me at least every three months. Has appointment to have kendall removed from foot. Anemia (Chronic) Medical History: Medical History (Last Updated 12/23/17 @ 16:10 by Hermila Cast) Type 1 diabetes mellitus E10.9 Dx :age 16 Last exacerbation : DKA : 2016 Hypoglycemic episode : years ago ER visit : 2016 Allergies gluten Adverse Reaction (Verified 09/30/18 07:52) Nausea/Vom/Diarrhea wheat Adverse Reaction (Verified 09/30/18 07:52) Nausea Home Medications: Ambulatory Orders Medication Instructions Recorded insulin lispro (U- 100) 100 See Rx Instructions SC TID #18 ml 12/23/17 unit/mL subcutaneous pen Insulin Glargine,Hum.rec.anlog 30 unit SC QHS 01/17/19 [Basaglar KwikPen U-100 Insulin] Surgical History: - - I+D abscesses prior, abdominal wound history prior, s/p skin grafts after skin bray Psychiatric History: No pertinent psych hx Lives: With Family Smoking Status: Never smoker Tobacco Use: Chew - tobacco Alcohol: None Drugs: Marijuana - *Family History Maternal History Items: Heart Disease - Mother of an VT in her 30s after a seizure Paternal History Items: COPD, Heart Disease Review of Systems Constitutional: Reports: Weakness, Fatigue. Denies: Anorexia, Chills, Fever, Malaise, Weight Change Eyes: Denies: Cataracts, Conjunctivae Inflammation, Double vision, Pain, R edness, Vision Change HEENT: Denies: Difficulty Hearing, Difficulty Swallowing, Dysphasia, Head Aches, Hearing Changes, Sinus Congestion, Sinus Drainage Cardiovascular: Denies: Chest Pain, Claudication, Orthopnea, Palpitations, Paroxysmal Noc. Dyspnea Respiratory: Denies: Cough, Shortness of breath at rest, Shortness of breath upon exertion, Sputum production Gastrointestinal: Denies: Abdominal Pain, Constipation, Hematemesis, Hematochezia, Nausea, Vomiting Genitourinary: Denies: Dysuria Musculoskeletal: Denies: Joint Pain, Joint stiffness, Joint swelling, Joint Tenderness Skin: Denies: Rash, Wounds Neurological: Denies: Numbness, Tingling, Focal weakness Psychiatric: Denies: Anxiety, Depression, Homicidal Ideations, Suicidal Ideations Hematologic/ Lymphatic: Denies: Easy Bruising, Easy Bleeding VTE Information - Inpt Only VTE Present on Admission: No VTE Pharm Prophylaxis ordered?: Yes - Physical Exam General: Alert, Oriented x3, Cooperative, No apparent distress HEENT: Atraumatic, PERRLA, EOMI, Normocephalic Oral: Moist Mucosa Neck: Supple Lungs: Clear to auscultation, Normal air movement Cardiovascular: Regular rate, Regular Rhythm, Normal S1, Normal S2, No murmurs Abdomen: Bowel Sounds Present, Soft, Non Tender Extremities: No edema Skin: No rashes, No breakdown Musculoskeletal: No Tenderness to Palpation of Joints or Extremities Neurological: Cranial nerves II-XII grossly intact, Neuro grossly intact Psych/Mental Status: Normal Affect, Appropriate Vital Signs Temp Pulse Resp BP Pulse Ox 97.8 F 110 H 20 H 137/59 H 98 01/17/19 19:00 01/17/19 19:00 01/17/19 19:00 01/17/19 19:00 01/17/19 19:00 Oxygen Delivery Method Room Air Weight: 72.9 kg Body Mass Index (BMI) 24.4 Finger Stick Blood Glucose 64 Laboratory Tests Past 24 Hrs 01/17/19 01/17/19 01/17/19 15:45 15:45 15:45 WBC 22.2 H RBC 5.72 Hgb 12.6 L Hct 41.1 MCV 71.9 L MCH 22.0 L MCHC 30.7 L RDW 17.3 H RDW Differential 45.2 H Plt Count 396 MPV 10.6 Immature Gran % (Auto) 0.300 Neut % (Auto) 70.5 H Lymph % (Auto) 19.9 [place] % (Auto) 4.5 Eos % (Auto) 4.5 Baso % (Auto) 0.3 Absolute Neuts (auto) 15.6 H Absolute Lymphs (auto) 4.40 Total Counted Not Reportable Platelet Estimate ADEQUATE Anisocytosis 1+ Microcytosis 1+ PT 13.4 INR 1.0 APTT 23.7 L D-Dimer Quant (PE/DVT) < 0.27 L Specimen Type VBG pH VBG pO2 VBG O2 Sat (Calc) VBG O2 Content VBG Base Excess POC Mix VBG pCO2 Pt Tmp Blood Gas Notified Whom Blood Gas Notified Time Sodium 132 L Potassium 4.1 Chloride 105 Carbon Dioxide 13.0 L Anion Gap 14 BUN 19 H Creatinine 1.04 Estim Creat Clear Calc 108.70 Est GFR (MDRD) Af Amer 115 Est GFR (MDRD) Non-Af 95 BUN/Creatinine Ratio 18.3 Glucose 396 H Lactic Acid Calcium 8.6 Total Bilirubin 0.30 Direct Bilirubin 0.07 AST 17 ALT 30 Alkaline Phosphatase 210 H Troponin I < 0.015 Total Protein 7.7 Albumin 3.5 Globulin 4.2 Lipase 88 Urine Color Urine Clarity Urine pH Ur Specific [place] Urine Protein Urine Glucose (UA) Urine Ketones Urine Occult Blood Urine Nitrite Urine Bilirubin Urine Urobilinogen Ur Leukocyte Esterase Urine RBC Urine WBC Ur Squamous Epith Cells Urine Bacteria Urine Mucus Urine Opiates Screen Urine Methadone Screen Ur Barbiturates Screen Ur Phencyclidine Scrn Ur Amphetamines Screen U Methamphetamin-MDMA U Benzodiazepines Scrn Urine Cocaine Screen U Cannabinoids Screen Ur Drug Screen Comment Acetone Level 01/17/19 01/17/19 01/17/19 16:30 16:30 16:30 WBC RBC Hgb Hct MCV MCH MCHC RDW RDW Differential Plt Count MPV Immature Gran % (Auto) Neut % (Auto) Lymph % (Auto) [place] % (Auto) Eos % (Auto) Baso % (Auto) Absolute Neuts (auto) Absolute Lymphs (auto) Total Counted Platelet Estimate Anisocytosis Microcytosis PT INR APTT D-Dimer Quant (PE/DVT) Specimen Type VBG pH VBG pO2 VBG O2 Sat (Calc) VBG O2 Content VBG Base Excess POC Mix VBG pCO2 Pt Tmp Blood Gas Notified Whom Blood Gas Notified Time Sodium Potassium Chloride Carbon Dioxide Anion Gap BUN Creatinine Estim Creat Clear Calc Est GFR (MDRD) Af Amer Est GFR (MDRD) Non-Af BUN/Creatinine Ratio Glucose Lactic Acid 3.4 H Calcium Total Bilirubin Direct Bilirubin AST ALT Alkaline Phosphatase Troponin I Total Protein Albumin Globulin Lipase Urine Color Straw Urine Clarity Clear Urine pH 6.0 Ur Specific [place] 1.010 Urine Protein Negative Urine Glucose (UA) 1000 H Urine Ketones 150 H Urine Occult Blood Negative Urine Nitrite Negative Urine Bilirubin Negative Urine Urobilinogen Normal Ur Leukocyte Esterase Negative Urine RBC 0 SEEN Urine WBC 0 SEEN Ur Squamous Epith Cells 0 SEEN Urine Bacteria 0 SEEN Urine Mucus 0 SEEN Urine Opiates Screen Urine Methadone Screen Ur Barbiturates Screen Ur Phencyclidine Scrn Ur Amphetamines Screen U Methamphetamin-MDMA U Benzodiazepines Scrn Urine Cocaine Screen U Cannabinoids Screen Ur Drug Screen Comment Acetone Level MODERATE H 01/17/19 01/17/19 16:30 17:12 WBC RBC Hgb Hct MCV MCH MCHC RDW RDW Differential Plt Count MPV Immature Gran % (Auto) Neut % (Auto) Lymph % (Auto) [place] % (Auto) Eos % (Auto) Baso % (Auto) Absolute Neuts (auto) Absolute Lymphs (auto) Total Counted Platelet Estimate Anisocytosis Microcytosis PT INR APTT D-Dimer Quant (PE/DVT) Specimen Type JAIDEN VBG pH 7.30 L VBG pO2 52 H VBG O2 Sat (Calc) 83 H VBG O2 Content 15 L VBG Base Excess -12 L POC Mix VBG pCO2 Pt Tmp 28.6 L Blood Gas Notified Whom ED Blood Gas Notified Time 1711 Sodium Potassium Chloride Carbon Dioxide Anion Gap BUN Creatinine Estim Creat Clear Calc Est GFR (MDRD) Af Amer Est GFR (MDRD) Non-Af BUN/Creatinine Ratio Glucose Lactic Acid Calcium Total Bilirubin Direct Bilirubin AST ALT Alkaline Phosphatase Troponin I Total Protein Albumin Globulin Lipase Urine Color Urine Clarity Urine pH Ur Specific [place] Urine Protein Urine Glucose (UA) Urine Ketones Urine Occult Blood Urine Nitrite Urine Bilirubin Urine Urobilinogen Ur Leukocyte Esterase Urine RBC Urine WBC Ur Squamous Epith Cells Urine Bacteria Urine Mucus Urine Opiates Screen NEGATIVE Urine Methadone Screen NEGATIVE Ur Barbiturates Screen NEGATIVE Ur Phencyclidine Scrn NEGATIVE Ur Amphetamines Screen NEGATIVE U Methamphetamin-MDMA NEGATIVE U Benzodiazepines Scrn NEGATIVE Urine Cocaine Screen NEGATIVE U Cannabinoids Screen NEGATIVE Ur Drug Screen Comment Acetone Level POC Glucose 01/17/19 01/17/19 01/17/19 18:35 17:58 15:46 POC Glucose 64 L 97 386 H Assessment/Plan All Active Problems (Last Updated 12/23/17 @ 16:10 by Hermila Cast) Abdominal wall abscess (Resolved) Severe sepsis (Resolved) DKA (diabetic ketoacidoses) (Acute) Elevated blood sugar (Resolved) Lactic acidosis (Acute) Type I diabetes mellitus, uncontrolled (Acute) Ulcer of abdomen wall with fat layer exposed (Acute) 23 year old M with past medical history of type 1 DM, who comes in complaining of shortness of breath and palpitations and was found to be in DKA. His admitting blood sugar was 386. He did not receive any insulin in the emergency department but blood sugar dropped to 64. 1. Acute DKA in a type I diabetic, stable vitals Plan: Admit to ICU, monitor per protocol, blood sugar checks, repeat BMP stat 2. Chest pain, likely musculoskeletal/DKA, admitting EKG shows no acute ST-T changes. 3. Nicotine dependence, chews tobacco, refuses nicotine patch and gum, advised to quit 4. Leukocytosis, likely reactive, no source of infection 5. Pseudohyponatremia, will trend BMP. 6. DVT PPx- early ambulation Code Visit Inpatient E&M: 18269 Init Hosp L3
[2019-01-17 20:37] LABS: Reflex Lactate? Y
[2019-01-17 21:21] LABS: Bedside Glucose 80 mg/dL (70-110)
[2019-01-17 21:34] LABS: Anion Gap 4 (5-15); BUN 12 mg/dL (7-18); BUN/Creat Ratio 16.9 RATIO (10-20); Calcium,Total 7.6 mg/dL (8.5-10.1); Chloride 114 mmol/L (98-107); Creatinine, Serum 0.71 mg/dL (0.70-1.30); EST Glomerular Filtration Rate 147 mL/min (>60); Est Glom Filt Rate - Afr Amer 178 mL/min (>60); Estimated Creatinine Clearance 168.77 ml/min; Glucose 82 mg/dL (74-106); Lactic Acid 1.9 mmol/L (0.4-2.0); Potassium 3.4 mmol/L (3.5-5.1); Sodium Level 141 mmol/L (136-145)
[2019-01-17 21:55] LABS: Bedside Glucose 88 mg/dL (70-110)
[2019-01-17] MEDS: 0.9% NaCl IVPB Med Flush (250 mL) 15 ML IV (22:24)
[2019-01-17] MEDS: Potassium Chloride 10mEq/100mL 10 MEQ/100 ML IV.SOLN. 100 MEQ IV BOLUS ×2 (22:24→23:51)
[2019-01-17] MEDS: 0.9% NaCl Peripheral Flush Adult/Peds IV ×2 (22:32→22:36)
[2019-01-18] VITALS (14 sets, daily range): BP systolic 108–141; BP diastolic 54–92; PULSE 84–113; RESP 15–20; TEMP 37–37.2; O2SAT 93–100
[2019-01-18 00:01] LABS: Bedside Glucose 330 mg/dL (70-110)
[2019-01-18 00:05] LABS: Bedside Glucose 334 mg/dL (70-110)
[2019-01-18] MEDS: Insulin Lispro 100 UNIT/ML INSULN.PEN SC (00:50)
[2019-01-18 01:01] LABS: Anion Gap 8 (5-15); BUN 14 mg/dL (7-18); BUN/Creat Ratio 14.4 RATIO (10-20); Calcium,Total 7.9 mg/dL (8.5-10.1); Chloride 108 mmol/L (98-107); Creatinine, Serum 0.97 mg/dL (0.70-1.30); EST Glomerular Filtration Rate 103 mL/min (>60); Est Glom Filt Rate - Afr Amer 124 mL/min (>60); Estimated Creatinine Clearance 123.53 ml/min; Glucose 388 mg/dL (74-106); Potassium 4.6 mmol/L (3.5-5.1); Sodium Level 135 mmol/L (136-145)
[2019-01-18] MEDS: Potassium Chloride 10mEq/100mL 10 MEQ/100 ML IV.SOLN. 100 MEQ IV BOLUS ×2 (01:11→02:22)
[2019-01-18] MEDS: Insulin Lispro 100 UNIT/ML INSULN.PEN SQ ×2 (02:22→12:25)
[2019-01-18 03:01] LABS: Bedside Glucose 343 mg/dL (70-110)
[2019-01-18 04:32] LABS: Anion Gap 9 (5-15); BUN 15 mg/dL (7-18); BUN/Creat Ratio 18.8 RATIO (10-20); Calcium,Total 8.3 mg/dL (8.5-10.1); Chloride 110 mmol/L (98-107); EST Glomerular Filtration Rate 129 mL/min (>60); Est Glom Filt Rate - Afr Amer 156 mL/min (>60); Estimated Creatinine Clearance 149.78 ml/min; Glucose 167 mg/dL (74-106); Potassium 4.5 mmol/L (3.5-5.1); Sodium Level 140 mmol/L (136-145)
[2019-01-18 06:51] LABS: Bedside Glucose 124 mg/dL (70-110)
[2019-01-18 06:57] LABS: Absolute Lymphocyte Count 4.63 X10^3/ul (0.83-4.51); Basophil# 0.05 X10^3/uL; Basophil% 0.3 % (0-1); Eosinophil# 1.28 X10^3/uL; Eosinophils% 8.4 % (0-5); Hemoglobin 11.7 g/dl (13.0-16.5); Lymphocyte # 4.63 X10^3/ul (4.0); Lymphocyte % 30.4 % (19-41); Mean Corp Hgb Conc 30.8 g/gl (32-36); Mean Corpuscular Hgb 22.1 pg (27.0-32.0); Mean Corpuscular Volume 71.8 fL (80-94); Mean Platelet Vol. 10.3 fl (6.2-12.0); Monocyte# 1.26 X10^3/uL; Monocyte% 8.3 % (0-10); Neutrophil # 7.96 X10^3/uL (2.7-7.7); Neutrophil % 52.3 % (47-70); Platelet Count 350 K/mm3 (150-450); RBC Distribution Width CV 17.6 % (11.6-14.6); RBC Distribution Width SD 46.2 fl (35.1-43.9); Red Blood Count 5.29 M/mm3 (4.6-6.2); White Blood Count 15.2 K/mm3 (4.4-11.0)
[2019-01-18 06:58] LABS: Differential Indicated SCAN CRITERIA MET; POSITIVE COUNT NO; POSITIVE DIFFERENTIAL NO; POSITIVE MORPHOLOGY YES
[2019-01-18 07:08] LABS: Differential Comment SCANNED; Hypochromasia 1+; Microcytosis 3+
[2019-01-18] MEDS: Insulin Lispro 100 UNIT/ML INSULN.PEN 8 UNIT SQ ×2 (08:50→12:25)
--- NOTE | 2019-01-18 10:33 | PCM.PN.HOSP ---
Subjective: Resting comfortably, no acute events overnight Vitals/I&O's: Vital Signs Temp Pulse Resp BP Pulse Ox 98.6 F 92 18 128/77 H 93 01/18/19 04:00 01/18/19 07:00 01/18/19 07:00 01/18/19 07:00 01/18/19 07:00 Oxygen Delivery Method Room Air Weight: 159 lb 13.362 oz Body Mass Index (BMI) 21.7 Finger Stick Blood Glucose 53 Intake and Output for Last 24 Hours 01/16/19 01/17/19 01/18/19 23:59 23:59 23:59 Intake Total 648.4 / 648.4 1005 / 1005 Output Total 350 / 350 2775 / 2775 Balance 298.4 / 298.4 -1770 / -1770 General: Alert, Oriented x3, Cooperative, No apparent distress HEENT: Atraumatic, PERRLA, EOMI, Normocephalic Oral: Moist Mucosa Neck: Supple, No JVD Lungs: Clear to auscultation, Normal air movement, No rhonchi, No wheeze, No rales Cardiovascular: Regular rate, Regular Rhythm, Normal S1, Normal S2, No murmurs Abdomen: Soft, Non Tender, Non-Distended, No Hepato-splenomegaly Extremities: No edema, Capillary Refill Less than 3 Seconds Skin: No rashes, No breakdown Neurological: Neuro grossly intact, Sensory exam intact to light touch and pain Psych/Mental Status: Normal Affect, Appropriate Laboratory Results 01/17/19 15:45: WBC 22.2 H, RBC 5.72, Hgb 12.6 L, Hct 41.1, MCV 71.9 L, MCH 22.0 L, MCHC 30.7 L, RDW 17.3 H, RDW Differential 45.2 H, Plt Count 396, MPV 10.6, Immature Gran % (Auto) 0.300, Neut % (Auto) 70.5 H, Lymph % (Auto) 19.9, [place] % (Auto) 4.5, Eos % (Auto) 4.5, Baso % (Auto) 0.3, Absolute Neuts (auto) 15.6 H, Absolute Lymphs (auto) 4.40, Total Counted Not Reportable, Platelet Estimate ADEQUATE, Anisocytosis 1+, Microcytosis 1+ 01/17/19 15:45: PT 13.4, INR 1.0, APTT 23.7 L, D-Dimer Quant (PE/DVT) < 0.27 L 01/17/19 15:45: Sodium 132 L, Potassium 4.1, Chloride 105, Carbon Dioxide 13.0 L, Anion Gap 14, BUN 19 H, Creatinine 1.04, Estim Creat Clear Calc 108.70, Est GFR (MDRD) Af Amer 115, Est GFR (MDRD) Non-Af 95, BUN/Creatinine Ratio 18.3, Glucose 396 H, Calcium 8.6, Total Bilirubin 0.30, Direct Bilirubin 0.07, AST 17, ALT 30, Alkaline Phosphatase 210 H, Troponin I < 0.015, Total Protein 7.7, Albumin 3.5, Globulin 4.2, Lipase 88 01/17/19 15:46: POC Glucose 386 H 01/17/19 16:30: Lactic Acid 3.4 H 01/17/19 16:30: Acetone Level MODERATE H 01/17/19 16:30: Urine Color Straw, Urine Clarity Clear, Urine pH 6.0, Ur Specific [place] 1.010, Urine Protein Negative, Urine Glucose (UA) 1000 H, Urine Ketones 150 H, Urine Occult Blood Negative, Urine Nitrite Negative, Urine Bilirubin Negative, Urine Urobilinogen Normal, Ur Leukocyte Esterase Negative, Urine RBC 0 SEEN, Urine WBC 0 SEEN, Ur Squamous Epith Cells 0 SEEN, Urine Bacteria 0 SEEN, Urine Mucus 0 SEEN 01/17/19 16:30: Urine Opiates Screen NEGATIVE, Urine Methadone Screen NEGATIVE, Ur Barbiturates Screen NEGATIVE, Ur Phencyclidine Scrn NEGATIVE, Ur Amphetamines Screen NEGATIVE, U Methamphetamin-MDMA NEGATIVE, U Benzodiazepines Scrn NEGATIVE, Urine Cocaine Screen NEGATIVE, U Cannabinoids Screen NEGATIVE, Ur Drug Screen Comment 01/17/19 17:12: Specimen Type JAIDEN, VBG pH 7.30 L, VBG pO2 52 H, VBG O2 Sat (Calc) 83 H, VBG O2 Content 15 L, VBG Base Excess -12 L, POC Mix VBG pCO2 Pt Tmp 28.6 L, Blood Gas Notified Whom ED , Blood Gas Notified Time 1711 01/17/19 17:58: POC Glucose 97 01/17/19 18:35: POC Glucose 64 L 01/17/19 19:45: POC Glucose 53 L 01/17/19 20:51: POC Glucose 80 01/17/19 21:03: Sodium 141, Potassium 3.4 L, Chloride 114 H, Carbon Dioxide 23.0, Anion Gap 4 L, BUN 12, Creatinine 0.71, Estim Creat Clear Calc 168.77, Est GFR (MDRD) Af Amer 178, Est GFR (MDRD) Non-Af 147, BUN/Creatinine Ratio 16.9, Glucose 82, Calcium 7.6 L 01/17/19 21:03: Lactic Acid 1.9 01/17/19 21:52: POC Glucose 88 01/17/19 23:57: POC Glucose 330 H 01/18/19 00:00: POC Glucose 334 H 01/18/19 00:30: Sodium 135 L, Potassium 4.6, Chloride 108 H, Carbon Dioxide 19.0 L, Anion Gap 8, BUN 14, Creatinine 0.97, Estim Creat Clear Calc 123.53, Est GFR (MDRD) Af Amer 124, Est GFR (MDRD) Non-Af 103, BUN/Creatinine Ratio 14.4, Glucose 388 H, Calcium 7.9 L 01/18/19 01:31: POC Glucose 343 H 01/18/19 03:50: Sodium 140, Potassium 4.5, Chloride 110 H, Carbon Dioxide 21.0, Anion Gap 9, BUN 15, Creatinine 0.80, Estim Creat Clear Calc 149.78, Est GFR (MDRD) Af Amer 156, Est GFR (MDRD) Non-Af 129, BUN/Creatinine Ratio 18.8, Glucose 167 H, Calcium 8.3 L 01/18/19 06:43: POC Glucose 124 H 01/18/19 06:45: WBC 15.2 H, RBC 5.29, Hgb 11.7 L, Hct 38.0 L, MCV 71.8 L, MCH 22.1 L, MCHC 30.8 L, RDW 17.6 H, RDW Differential 46.2 H, Plt Count 350, MPV 10.3, Immature Gran % (Auto) 0.300, Neut % (Auto) 52.3, Lymph % (Auto) 30.4, [place] % (Auto) 8.3, Eos % (Auto) 8.4 H, Baso % (Auto) 0.3, Absolute Neuts (auto) 8.0 H, Absolute Lymphs (auto) 4.63 H, Total Counted Not Reportable, Differential Comment SCANNED, Hypochromasia 1+, Microcytosis 3+ Current Medications Acetaminophen (Tylenol) 650 mg PO Q6H PRN PRN PRN Reason: Mild Pain (1-3)/Temp > 100.7 F Dextrose (D50w Syringe) 0 gm IV X1 PRN; Protocol PRN Reason: HYPOGLYCEMIA Dextrose (D50w Syringe) 0 gm IV X1 PRN; Protocol PRN Reason: Hypoglycemia Dextrose (D50w Syringe) 0 gm IV X1 PRN; Protocol PRN Reason: Hypoglycemia Glucagon () 1 mg IM .X1 PRN PRN Reason: Hypoglycemia Sodium Chloride () 250 mls @ 15 mls/hr IV .[id number] PRN PRN Reason: SALINE FLUSH Last Admin: 01/17/19 22:24 Dose: 15 mls/hr Insulin Glargine (Lantus (Bkc)) 25 units SC QHS ANASTASIA Last Admin: 01/18/19 01:24 Dose: 25 u Insulin Human Lispro (Humalog Kwikpen (Bkc)) 8 unit SQ BREAKFAST ANASTASIA Last Admin: 01/18/19 08:50 Dose: 8 u Insulin Human Lispro (Humalog Kwikpen (Bkc)) 8 unit SQ DINNER ANASTASIA Insulin Human Lispro (Humalog Kwikpen (Bkc)) 8 unit SQ LUNCH ANASTASIA Insulin Human Lispro (Humalog Kwikpen (Bkc)) 0 unit SQ ACHS & 3AM ANASTASIA; Protocol Last Admin: 01/18/19 07:11 Dose: Not Given Sodium Chloride () 5 - 15 ml IV UD PRN PRN Reason: SALINE FLUSH Last Admin: 01/17/19 22:36 Dose: 10 ml Medical Necessity - Tobacco Use Smoking Status: Never smoker Tobacco Use: Chew Assessment/Plan All Active Problems (Last Updated 12/23/17 @ 16:10 by Hermila Cast) Abdominal wall abscess (Resolved) Severe sepsis (Resolved) DKA (diabetic ketoacidoses) (Acute) Elevated blood sugar (Resolved) Lactic acidosis (Acute) Type I diabetes mellitus, uncontrolled (Acute) Ulcer of abdomen wall with fat layer exposed (Acute) 1. Type I diabetic with acute DKA/leukocytosis/pseudo-hyponatremia -Blood sugar was in the mid 300s and he had 150 ketones in the urine with moderate acetone. -Started on an insulin drip in the ER and his dropped into the mid 50s -Initially his anion gap was 14 and is currently closed -We will resume his home insulin dosing and provide him with a diet -He will need to follow-up with his PCP and/or chief of police for further education of his current condition -His leukocytosis is improving from 22.2-15.2 and his sodium has normalized 2. Chest pain/anxiety -Currently denies any chest pain -Troponin was negative and EKG was unremarkable -D-dimer was obtained in the ER which was normal to further characterize his chest pain -We will plan to start Zoloft 50 mg to help with anxiety as he thinks that this may have caused his chest pain sensation 3. Tobacco abuse -Refused nicotine patch and gum -Patient advised DVT: Ambulation Code Visit Inpatient E&M: 68188 Subs Hosp L2
--- NOTE | 2019-01-18 12:14 | DCINST_ITS ---
You will use the following diet at home:: Calorie/Carbohydrate Controlled (specify 1200, 1400, etc) Your food should be the consistency of: Regular Your liquids should be the consistency of: Regular/Thin Discharge Activity: Return to Normal Activity Call your doctor if you observe: Fever of 101 or Higher, Shortness of breath, Dizziness, Fainting spells, Swelling in the ankles, Chest pain, Increased palpitations (irregular heartbeat) Allergies/Adverse Reactions: Allergies gluten Adverse Reaction (Verified 09/30/18 07:52) Nausea/Vom/Diarrhea wheat Adverse Reaction (Verified 09/30/18 07:52) Nausea Medications to take at Discharge Insulin Glargine [Lantus SoloStar Pen] 40 units SC QHS 01/18/19 Insulin Lispro [Humalog KwikPen] See Protocol SQ TIDCM 01/18/19 Insulin Lispro [Humalog Kwikpen] 30 unit SQ TIDCM 01/18/19 Sertraline HCl [Zoloft] 50 mg PO DAILY #30 tablet 01/18/19 The following prescriptions were given: Sertraline HCl [Zoloft] 50 mg PO DAILY #30 tablet Primary Care Physician: Deangelo Noel MD [Primary Care Provider] - Please follow up with your Primary Care Physician in: 3-5 days Test Results: Test results from this visit will be discussed in further detail at your follow- up appointment, if applicable.
--- NOTE | 2019-01-18 12:22 | DS.PCM_ITS ---
Discharge Date and Diagnosis Date of Admission: 01/17/19 Date of Discharge: 01/18/19 - Secondary Discharge Diagnosis Chronic Problems (Last Updated 12/23/17 @ 16:10 by Hermila Cast) Tobacco use (Chronic) DM type 1 (diabetes mellitus, type 1) (Chronic) No data for review. Enc to bring meter. I did provide patient with very specific sliding scale to use which was helpful in the past. He is ask to see me at least every three months. Has appointment to have kendall removed from foot. Anemia (Chronic) Hospital Course and Treatment Imaging Results: CXR: IMPRESSION: Normal x-ray examination of the chest. Consults: None Operations: None Procedures: None Summary of Care Provided: Per HPI: The patient is a 23 year old M with past medical history of type 1 DM, who comes in complaining of shortness of breath and palpitations. He also complains of chest pain that is described like a sledgehammer hitting his chest. He has history of DKA. He takes his insulin regularly. He denies missing any insulin doses. Denies any fever or chills or shortness of breath. Denies any recent illnesses. Denied any diarrhea or abdominal pain Vitals in the ED show temperature of 90 8.4F, heart rate 110, blood pressure 121/71, respiratory rate is 19, SPO2 100% on room air. His admitting lab showed WBC Hb 12.6, Plt 396, INR 1.0, D-dimer 0.27, his BMP shows sodium of 132, potassium 4.1, chloride 105, bicarbonate was 13, anion gap was 14, BUN is 19, creatinine is 1.04, blood glucose is 396, lactic acid is 3.4. UA is unremarkable. Urine tox is negative for cannabinoids. VBG showed pH 7.3, PO2 52, Hospital Course: 1. Type I diabetic with acute DKA/leukocytosis/igewgrtmhafhbxzivi-49-mlqi-old male presented with shortness of breath and palpitations. He also had an episode of chest pain which was ruled out with normal troponins normal d-dimer and normal EKG. Today he denies any chest pain whatsoever and feels back to normal. He did not have a significant anion gap acidosis and his pH on VBG was 7.3 on admission. His lactate resolved and his leukocytosis is improving. His pseudohyponatremia also resolved by the day of discharge. He states that he is very busy with moving and would like to go home. There is no changes made to his home insulin regimen as it seems to be tailored to his diet, however I did recommend that he follow-up with his primary care physician to see if there is any further adjustments that could be made. He understands the risks of going home today versus waiting 1 more day and is okay with it. He did improve much quicker than anticipated on admission. 2. 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 As stated above his chest pain had been ruled out with normal troponins, normal d- dimer and a normal EKG however he is not on anything to manage his anxiety and I discussed with him the possibility of going on a Zoloft to help with his anxiety. He was okay with starting it. I explained to him that I will start him on 50 mg daily and if in 2 weeks he is feeling okay and does not have any side effects he can increase that to 100 mg daily. I did explain to him that he is only getting a 30-day supply and will need to follow-up with his PCP for refill if he chooses. - Physical Exam Vital Signs Temp Pulse Resp BP Pulse Ox 98.9 F 102 H 16 126/69 H 97 01/18/19 08:00 01/18/19 11:23 01/18/19 11:00 01/18/19 11:00 01/18/19 11:00 Oxygen Delivery Method Room Air Weight: 159 lb 13.362 oz Body Mass Index (BMI) 21.7 Finger Stick Blood Glucose 53 Intake and Output for Last 24 Hours 01/16/19 01/17/19 01/18/19 23:59 23:59 23:59 Intake Total 648.4 / 648.4 1005 / 1005 Output Total 350 / 350 2775 / 2775 Balance 298.4 / 298.4 -1770 / -1770 Laboratory Tests Past 24 Hrs 01/17/19 01/17/19 01/17/19 15:45 15:45 15:45 WBC 22.2 H RBC 5.72 Hgb 12.6 L Hct 41.1 MCV 71.9 L MCH 22.0 L MCHC 30.7 L RDW 17.3 H RDW Differential 45.2 H Plt Count 396 MPV 10.6 Immature Gran % (Auto) 0.300 Neut % (Auto) 70.5 H Lymph % (Auto) 19.9 Bureau % (Auto) 4.5 Eos % (Auto) 4.5 Baso % (Auto) 0.3 Absolute Neuts (auto) 15.6 H Absolute Lymphs (auto) 4.40 Total Counted Not Reportable Differential Comment Platelet Estimate ADEQUATE Hypochromasia Anisocytosis 1+ Microcytosis 1+ PT 13.4 INR 1.0 APTT 23.7 L D-Dimer Quant (PE/DVT) < 0.27 L Specimen Type VBG pH VBG pO2 VBG O2 Sat (Calc) VBG O2 Content VBG Base Excess POC Mix VBG pCO2 Pt Tmp Blood Gas Notified Whom Blood Gas Notified Time Sodium 132 L Potassium 4.1 Chloride 105 Carbon Dioxide 13.0 L Anion Gap 14 BUN 19 H Creatinine 1.04 Estim Creat Clear Calc 108.70 Est GFR (MDRD) Af Amer 115 Est GFR (MDRD) Non-Af 95 BUN/Creatinine Ratio 18.3 Glucose 396 H Lactic Acid Calcium 8.6 Total Bilirubin 0.30 Direct Bilirubin 0.07 AST 17 ALT 30 Alkaline Phosphatase 210 H Troponin I < 0.015 Total Protein 7.7 Albumin 3.5 Globulin 4.2 Lipase 88 Urine Color Urine Clarity Urine pH Ur Specific [place] Urine Protein Urine Glucose (UA) Urine Ketones Urine Occult Blood Urine Nitrite Urine Bilirubin Urine Urobilinogen Ur Leukocyte Esterase Urine RBC Urine WBC Ur Squamous Epith Cells Urine Bacteria Urine Mucus Urine Opiates Screen Urine Methadone Screen Ur Barbiturates Screen Ur Phencyclidine Scrn Ur Amphetamines Screen U Methamphetamin-MDMA U Benzodiazepines Scrn Urine Cocaine Screen U Cannabinoids Screen Ur Drug Screen Comment Acetone Level 01/17/19 01/17/19 01/17/19 16:30 16:30 16:30 WBC RBC Hgb Hct MCV MCH MCHC RDW RDW Differential Plt Count MPV Immature Gran % (Auto) Neut % (Auto) Lymph % (Auto) Bureau % (Auto) Eos % (Auto) Baso % (Auto) Absolute Neuts (auto) Absolute Lymphs (auto) Total Counted Differential Comment Platelet Estimate Hypochromasia Anisocytosis Microcytosis PT INR APTT D-Dimer Quant (PE/DVT) Specimen Type VBG pH VBG pO2 VBG O2 Sat (Calc) VBG O2 Content VBG Base Excess POC Mix VBG pCO2 Pt Tmp Blood Gas Notified Whom Blood Gas Notified Time Sodium Potassium Chloride Carbon Dioxide Anion Gap BUN Creatinine Estim Creat Clear Calc Est GFR (MDRD) Af Amer Est GFR (MDRD) Non-Af BUN/Creatinine Ratio Glucose Lactic Acid 3.4 H Calcium Total Bilirubin Direct Bilirubin AST ALT Alkaline Phosphatase Troponin I Total Protein Albumin Globulin Lipase Urine Color Straw Urine Clarity Clear Urine pH 6.0 Ur Specific [place] 1.010 Urine Protein Negative Urine Glucose (UA) 1000 H Urine Ketones 150 H Urine Occult Blood Negative Urine Nitrite Negative Urine Bilirubin Negative Urine Urobilinogen Normal Ur Leukocyte Esterase Negative Urine RBC 0 SEEN Urine WBC 0 SEEN Ur Squamous Epith Cells 0 SEEN Urine Bacteria 0 SEEN Urine Mucus 0 SEEN Urine Opiates Screen Urine Methadone Screen Ur Barbiturates Screen Ur Phencyclidine Scrn Ur Amphetamines Screen U Methamphetamin-MDMA U Benzodiazepines Scrn Urine Cocaine Screen U Cannabinoids Screen Ur Drug Screen Comment Acetone Level MODERATE H 01/17/19 01/17/19 01/17/19 16:30 17:12 21:03 WBC RBC Hgb Hct MCV MCH MCHC RDW RDW Differential Plt Count MPV Immature Gran % (Auto) Neut % (Auto) Lymph % (Auto) Bureau % (Auto) Eos % (Auto) Baso % (Auto) Absolute Neuts (auto) Absolute Lymphs (auto) Total Counted Differential Comment Platelet Estimate Hypochromasia Anisocytosis Microcytosis PT INR APTT D-Dimer Quant (PE/DVT) Specimen Type JAIDEN VBG pH 7.30 L VBG pO2 52 H VBG O2 Sat (Calc) 83 H VBG O2 Content 15 L VBG Base Excess -12 L POC Mix VBG pCO2 Pt Tmp 28.6 L Blood Gas Notified Whom ED Blood Gas Notified Time 1711 Sodium 141 Potassium 3.4 L Chloride 114 H Carbon Dioxide 23.0 Anion Gap 4 L BUN 12 Creatinine 0.71 Estim Creat Clear Calc 168.77 Est GFR (MDRD) Af Amer 178 Est GFR (MDRD) Non-Af 147 BUN/Creatinine Ratio 16.9 Glucose 82 Lactic Acid Calcium 7.6 L Total Bilirubin Direct Bilirubin AST ALT Alkaline Phosphatase Troponin I Total Protein Albumin Globulin Lipase Urine Color Urine Clarity Urine pH Ur Specific [place] Urine Protein Urine Glucose (UA) Urine Ketones Urine Occult Blood Urine Nitrite Urine Bilirubin Urine Urobilinogen Ur Leukocyte Esterase Urine RBC Urine WBC Ur Squamous Epith Cells Urine Bacteria Urine Mucus Urine Opiates Screen NEGATIVE Urine Methadone Screen NEGATIVE Ur Barbiturates Screen NEGATIVE Ur Phencyclidine Scrn NEGATIVE Ur Amphetamines Screen NEGATIVE U Methamphetamin-MDMA NEGATIVE U Benzodiazepines Scrn NEGATIVE Urine Cocaine Screen NEGATIVE U Cannabinoids Screen NEGATIVE Ur Drug Screen Comment Acetone Level 01/17/19 01/18/19 01/18/19 21:03 00:30 03:50 WBC RBC Hgb Hct MCV MCH MCHC RDW RDW Differential Plt Count MPV Immature Gran % (Auto) Neut % (Auto) Lymph % (Auto) Bureau % (Auto) Eos % (Auto) Baso % (Auto) Absolute Neuts (auto) Absolute Lymphs (auto) Total Counted Differential Comment Platelet Estimate Hypochromasia Anisocytosis Microcytosis PT INR APTT D-Dimer Quant (PE/DVT) Specimen Type VBG pH VBG pO2 VBG O2 Sat (Calc) VBG O2 Content VBG Base Excess POC Mix VBG pCO2 Pt Tmp Blood Gas Notified Whom Blood Gas Notified Time Sodium 135 L 140 Potassium 4.6 4.5 Chloride 108 H 110 H Carbon Dioxide 19.0 L 21.0 Anion Gap 8 9 BUN 14 15 Creatinine 0.97 0.80 Estim Creat Clear Calc 123.53 149.78 Est GFR (MDRD) Af Amer 124 156 Est GFR (MDRD) Non-Af 103 129 BUN/Creatinine Ratio 14.4 18.8 Glucose 388 H 167 H Lactic Acid 1.9 Calcium 7.9 L 8.3 L Total Bilirubin Direct Bilirubin AST ALT Alkaline Phosphatase Troponin I Total Protein Albumin Globulin Lipase Urine Color Urine Clarity Urine pH Ur Specific [place] Urine Protein Urine Glucose (UA) Urine Ketones Urine Occult Blood Urine Nitrite Urine Bilirubin Urine Urobilinogen Ur Leukocyte Esterase Urine RBC Urine WBC Ur Squamous Epith Cells Urine Bacteria Urine Mucus Urine Opiates Screen Urine Methadone Screen Ur Barbiturates Screen Ur Phencyclidine Scrn Ur Amphetamines Screen U Methamphetamin-MDMA U Benzodiazepines Scrn Urine Cocaine Screen U Cannabinoids Screen Ur Drug Screen Comment Acetone Level 01/18/19 06:45 WBC 15.2 H RBC 5.29 Hgb 11.7 L Hct 38.0 L MCV 71.8 L MCH 22.1 L MCHC 30.8 L RDW 17.6 H RDW Differential 46.2 H Plt Count 350 MPV 10.3 Immature Gran % (Auto) 0.300 Neut % (Auto) 52.3 Lymph % (Auto) 30.4 Bureau % (Auto) 8.3 Eos % (Auto) 8.4 H Baso % (Auto) 0.3 Absolute Neuts (auto) 8.0 H Absolute Lymphs (auto) 4.63 H Total Counted Not Reportable Differential Comment SCANNED Platelet Estimate Hypochromasia 1+ Anisocytosis Microcytosis 3+ PT INR APTT D-Dimer Quant (PE/DVT) Specimen Type VBG pH VBG pO2 VBG O2 Sat (Calc) VBG O2 Content VBG Base Excess POC Mix VBG pCO2 Pt Tmp Blood Gas Notified Whom Blood Gas Notified Time Sodium Potassium Chloride Carbon Dioxide Anion Gap BUN Creatinine Estim Creat Clear Calc Est GFR (MDRD) Af Amer Est GFR (MDRD) Non-Af BUN/Creatinine Ratio Glucose Lactic Acid Calcium Total Bilirubin Direct Bilirubin AST ALT Alkaline Phosphatase Troponin I Total Protein Albumin Globulin Lipase Urine Color Urine Clarity Urine pH Ur Specific [place] Urine Protein Urine Glucose (UA) Urine Ketones Urine Occult Blood Urine Nitrite Urine Bilirubin Urine Urobilinogen Ur Leukocyte Esterase Urine RBC Urine WBC Ur Squamous Epith Cells Urine Bacteria Urine Mucus Urine Opiates Screen Urine Methadone Screen Ur Barbiturates Screen Ur Phencyclidine Scrn Ur Amphetamines Screen U Methamphetamin-MDMA U Benzodiazepines Scrn Urine Cocaine Screen U Cannabinoids Screen Ur Drug Screen Comment Acetone Level POC Glucose 01/18/19 01/18/19 01/18/19 06:43 01:31 00:00 POC Glucose 124 H 343 H 334 H 01/17/19 01/17/19 01/17/19 23:57 21:52 20:51 POC Glucose 330 H 88 80 01/17/19 01/17/19 01/17/19 19:45 18:35 17:58 POC Glucose 53 L 64 L 97 01/17/19 15:46 POC Glucose 386 H Discharge Activity: Return to Normal Activity Call your doctor if you observe: Fever of 101 or Higher, Shortness of breath, Dizziness, Fainting spells, Swelling in the ankles, Chest pain, Increased palpitations (irregular heartbeat) Home Medications: Medications to take at Discharge Insulin Glargine [Lantus SoloStar Pen] 40 units SC QHS 01/18/19 Insulin Lispro [Humalog KwikPen] See Protocol SQ TIDCM 01/18/19 Insulin Lispro [Humalog Kwikpen] 30 unit SQ TIDCM 01/18/19 Sertraline HCl [Zoloft] 50 mg PO DAILY #30 tablet 01/18/19 Following Prescrptions Were Given to Patient: Sertraline HCl [Zoloft] 50 mg PO DAILY #30 tablet Primary Care Physician: Deangelo Noel MD [Primary Care Provider] - Please follow up with your Primary Care Physician in: 3-5 days Disposition: Home Minutes spent on discharge:: 35 Patient Condition:: Stable Medical Necessity - Tobacco Use Smoking Status: Never smoker Tobacco Use: Chew Meaningful Use Info Meaningful Use Diagnoses (Choose all that apply): None applicable Code Visit Inpatient E&M: 73419 Disch Hosp
[2019-01-18 12:31] LABS: Bedside Glucose 203 mg/dL (70-110)
--- NOTE | 2019-01-18 15:47 | CASEMGMT ---
KEN KAHN GENERAL HELPER CM to room to meet with patient for initial transition planning/care coordination assessment. KEN KAHN introduced self and role at [facility]. Pt voices understanding and consents to assessment at this time. Pt resting in bed in no distress at this time. Pt is A/O at this time and answers all questions appropriately. Care providers, pharmacy, and demographics verified/updated at this time. PCP: Sadie Specialists: none Preferred Pharmacy:[facility] Insurance: [employer] Prescription Benefit: Yes Living Will/HPOA: Pt does not currently have LW/HCPOA and declines info at this time. Pt made aware that he can contact SW as an out-pt and make appt in the future if he decides he would like to talk with someone about this or would like to utilize [facility] social work for advanced directive completion. LNOK: Dad Living Arrangements: Lives with his father in a trailer w/2 steps to enter. is independent. Transportation: Pt states he does not drive. His father provides transportation. DME: has a glucometer, that it works properly and he has all needed supplies for it. Pt states no need for further DME at this time. HHC/SNF: No history of either. Denies needs and no needs identified. Pt wishes to return home and states has no concerns with going home at time of discharge. Pt states does not smoke but does drink on occasion. States he does chew tobacco. CM to follow for any discharge planning/needs. Pt voices no further concerns/needs at this time. Advised pt to ask for CM if any further questions/concerns/needs arise. Voices understanding. PLAN: Home w/discharge plans in place. Manolo MANTILLA RN, CM
== END 2019-01-18 12:50 | disposition home or self-care (01) ==
LOC: ED 16:32 → ICU 20:23
PROVIDERS: Hospitalist; Admitting Provider Internal Medicine; Emergency Provider Emergency Medicine; Family Provider Family Medicine; PCP Family Medicine; Referring Provider Internal Medicine; Visit Provider Family Medicine
DX: E10.10 Type 1 diabetes mellitus with ketoacidosis without coma (principal); R07.89 Other chest pain; R06.02 Shortness of breath; E10.65 Type 1 diabetes mellitus with hyperglycemia; Z79.4 Long term (current) use of insulin; D64.9 Anemia, unspecified; R00.2 Palpitations; F41.9 Anxiety disorder, unspecified; D72.829 Elevated white blood cell count, unspecified; F17.220 Nicotine dependence, chewing tobacco, uncomplicated
CPT/HCPCS: 36415; 71046; 80048; 80076; 80307; 81001; 82009; 82803; 82962; 83605; 83690; 84484; 85025; 85379; 85610; 85730; 87040; 93005; 96361; 96365; 96375; 96376; 97802; 99218; 99285; 99406; J7030; J7050; A4216; G0378; J7799

== ENCOUNTER 2019-09-13 16:01 | Emergency (ER) | payer MEDICAID, SELFPAY ==
[2019-09-13 16:01] VITALS: BMI 24.4
[2019-09-13 16:02] VITALS: BP 141/89; PULSE 122; RESP 16; TEMP 36.8; O2SAT 98; BMI 22.8
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
== END 2019-09-13 19:00 | disposition home or self-care (01) ==
PROVIDERS: Emergency Provider Emergency Medicine; PCP Family Medicine
DX: S20.212A Contusion of left front wall of thorax, initial encounter (principal); V89.2XXA Person injured in unspecified motor-vehicle accident, traffic, initial encounter; Y93.89 Activity, other specified; E11.9 Type 2 diabetes mellitus without complications; F41.9 Anxiety disorder, unspecified; Z79.4 Long term (current) use of insulin; Z72.0 Tobacco use
CPT/HCPCS: 71101; 72040; 99282

== ENCOUNTER 2020-11-25 11:49 | Inpatient (IN) | payer MEDICAID, SELFPAY ==
[2020-11-25] VITALS (10 sets, daily range): BP systolic 117–149; BP diastolic 71–105; PULSE 93–132; RESP 13–20; TEMP 36.1–37.1; O2SAT 97–100; BMI 23.8; BMI 23.3; BMI 23.4
--- NOTE | 2020-11-25 12:14 | EKG12_ITS ---
Test Reason : PALPATATIONS Blood Pressure : / mmHG Vent. Rate : 136 BPM Atrial Rate : 136 BPM P-R Int : 146 ms QRS Dur : 082 ms QT Int : 294 ms P-R-T Axes : 074 056 054 degrees QTc Int : 442 ms Sinus tachycardia Biatrial enlargement Abnormal ECG Confirmed by FRANDY MIRELES, KAILEY ([id number]), content editor LUIZA COUGHLIN ([id number]) on 11/27/2020 10:05:22 AM Referred By: NAIF/BELEN Confirmed By:KAILEY WISE MD
--- NOTE | 2020-11-25 12:14 | RAD_ITS ---
STUDY: X-RAY CHEST REASON FOR EXAM: Male, 25 years old. Palpitations TECHNIQUE: Single AP portable view of the chest. COMPARISON: Comparison is made with prior study dated 09/13/2019. FINDINGS: EKG electrodes are seen. The lungs are clear and expanded. There is no demonstrated pleural abnormality. Normal size heart. Normal mediastinum and nikolas. Normal visualized pulmonary arteries. Normal visualized aortic arch and descending thoracic aorta. Normal visualized thoracic spine. Normal visualized ribs, clavicles, and shoulders. There is no demonstrated abnormality of the visualized soft tissue structures of the upper abdomen. RAD/Chest 1 View (Portable) IMPRESSION: Normal x-ray examination of the chest. Electronically Signed: David Babin MD at 13:21 EDT , Service support ,
--- NOTE | 2020-11-25 12:16 | ED.VIS.GEN ---
History of Present Illness Chief Complaint: Palpitations Informant: Patient Narrative: 25-year-old type I diabetic male presents with palpitations. He states he has had several episodes of this in the past but states he was never given a reason why his heart suddenly races. 2 years ago he was admitted to the hospital after an ED evaluation which she complained of palpitations chest pain or shortness of breath and was found to be in DKA. Tells me his blood sugar was normal this morning. States it was around 100. He ate sausage and eggs. He states that he is not out of any medications. He denies any volume losses. No fevers or chills. Other than his heart racing he denies any other symptoms. Tells me symptoms began during the night at approximately 0100 hours. - Past Medical History (1) DM type 1 (diabetes mellitus, type 1) Status: Chronic Comment: No data for review. Enc to bring meter. I did provide patient with very specific sliding scale to use which was helpful in the past. He is ask to see me at least every three months. Has appointment to have kendall removed from foot. (2) Tobacco use Status: Chronic Past Medical History - Allergies and Home Meds Allergies/Adverse Reactions: Allergies gluten Adverse Reaction (Verified 11/25/20 11:50) Nausea/Vom/Diarrhea wheat Adverse Reaction (Verified 11/25/20 11:50) Nausea Primary Care Physician: Deangelo Noel MD [Primary Care Provider] - Surgical History: - - I+D abscesses prior, abdominal wound history prior, s/p skin grafts after skin bray Smoking Status: Never smoker Alcohol: None Drugs: None - Family History Maternal Family History: Reports: Heart Disease - Mother of an [place] in her 30s after a seizure Paternal Family History: Reports: COPD, Heart Disease Review of Systems General: Denies: Chills, Fever, Sweats Eyes: Denies: Visual changes - bilaterally, Diplopia ENT: Denies: Rhinorrhea, Sore throat Cardiovascular: Reports: Palpitations, Heart racing. Denies: Chest pain Respiratory: Denies: Dyspnea, Cough, Dyspnea on exertion Gastrointestinal: Denies: Abdominal pain, Nausea, Vomiting, Diarrhea, Melena, Hematochezia Genitourinary: Denies: Dysuria, Hematuria, Frequency Musculoskeletal: Denies: Back pain, Extremity Pain Skin: Denies: Rash, Wounds Neurological: Denies: Headache, Weakness, Numbness Physical Exam Vital Signs/Narrative: Vital Signs Temp Pulse Resp BP Pulse Ox 11/25/20 12:07 132 H 18 149/105 H 98 11/25/20 11:50 97.0 F L 132 H 18 142/80 H 100 Inital Vital Signs reviewed: Yes General: Well nourished, Well developed, No Acute Distress Head: Normocephalic, Atraumatic Eyes: Perrl, EOMI ENT: Moist mucous membranes, No rhinorrhea Neck: Supple, Nontender Cardiovascular: Regular rate, No murmurs, Tachycardia Respiratory: No distress, CTA bilaterally, Chest nontender Abdomen: Soft, Nontender, Nondistended, Normal bowel sounds Back: Nontender, Normal Inspection Extremities: Nontender, No edema Skin: Normal color, No rash Neurological: Alert, Oriented x3, Cranial nerves II-XII grossly intact, Normal Strength, Normal Sensation Psychological: Normal affect, Normal Mood Diagnostic/Tx/Re-eval Clinical Impression(s) from Imaging Studies Chest X-Ray 11/25/20 12:14 IMPRESSION: Normal x-ray examination of the chest. Electronically Signed: David Babin MD at 13:21 EDT , Service support , Laboratory Last Values WBC 12.2 K/mm3 (4.4-11.0) H 11/25/20 12:09 RBC 5.60 M/mm3 (4.6-6.2) 11/25/20 12:09 Hgb 14.8 g/dL (13.0-16.5) 11/25/20 12:09 Hct 49.3 % (40-54) 11/25/20 12:09 MCV 88.0 fL (80-94) 11/25/20 12:09 MCH 26.4 pg (27.0-32.0) L 11/25/20 12:09 MCHC 30.0 g/dL (32-36) L 11/25/20 12:09 RDW Std Deviation 43.1 fl (35.1-43.9) 11/25/20 12:09 RDW Coeff of Alec 13.3 % (11.6-14.6) 11/25/20 12:09 Plt Count 370 K/mm3 (150-450) 11/25/20 12:09 MPV 11.1 fl (6.2-12.0) 11/25/20 12:09 Immature Gran % (Auto) 0.600 % (0.0-0.9) 11/25/20 12:09 Neut % (Auto) 60.0 % (47-70) 11/25/20 12:09 Lymph % (Auto) 27.3 % (19-41) 11/25/20 12:09 [place] % (Auto) 8.6 % (0-10) 11/25/20 12:09 Eos % (Auto) 3.0 % (0-5) 11/25/20 12:09 Baso % (Auto) 0.5 % (0-1) 11/25/20 12:09 Absolute Neuts (auto) 7.3 X10^3/uL (2.0-7.7) 11/25/20 12:09 Absolute Lymphs (auto) 3.32 X10^3/uL (0.83-4.51) 11/25/20 12:09 Nucleated RBC % 0 % (0-5) 11/25/20 12:09 PT 12.4 SECONDS (11.7-14.9) 11/25/20 12:09 INR 1.0 11/25/20 12:09 APTT 21.4 Seconds (24.1-36.2) L 11/25/20 12:09 D-Dimer Quant (PE/DVT) <= 0.27 FEU/ug/m (0.27-0.49) 11/25/20 12:09 Sodium 124 mmol/L (136-145) L 11/25/20 12:09 Potassium 3.3 mmol/L (3.5-5.1) L 11/25/20 12:09 Chloride 86 mmol/L (98-107) L 11/25/20 12:09 Carbon Dioxide 19.0 mmol/L (21.0-32.0) L 11/25/20 12:09 Anion Gap 19 (5-15) H 11/25/20 12:09 BUN 26 mg/dL (7-18) H 11/25/20 12:09 Creatinine 1.52 mg/dL (0.70-1.30) H 11/25/20 12:09 Estim Creat Clear Calc 73.13 ml/min 11/25/20 12:09 Est GFR (MDRD) Af Amer 73 mL/min (>60) 11/25/20 12:09 Est GFR (MDRD) Non-Af 60 mL/min (>60) 11/25/20 12:09 BUN/Creatinine Ratio 17.1 RATIO (10-20) 11/25/20 12:09 Glucose 822 mg/dL (74-106) H* 11/25/20 12:09 Lactic Acid 8.3 mmol/L (0.4-1.9) H* 11/25/20 12:35 Calcium 9.8 mg/dL (8.5-10.1) 11/25/20 12:09 Total Bilirubin 0.50 mg/dL (0.20-1.00) 11/25/20 12:09 AST 15 U/L (15-37) 11/25/20 12:09 ALT 39 U/L (16-61) 11/25/20 12:09 Alkaline Phosphatase 229 U/L (45-117) H 11/25/20 12:09 Troponin I < 0.015 ng/mL (<0.045) 11/25/20 12:09 Total Protein 8.2 g/dL (6.4-8.2) 11/25/20 12:09 Albumin 3.8 g/dL (3.2-5.0) 11/25/20 12:09 Globulin 4.4 g/dL (2.2-4.2) H 11/25/20 12:09 Albumin/Globulin Ratio 0.9 RATIO (0.9-2.4) 11/25/20 12:09 Lipase 76 U/L (73-393) 11/25/20 12:09 TSH 1.53 uIU/mL (0.358-3.74) 11/25/20 12:09 Urine Color Straw (Yellow) 11/25/20 13:10 Urine Clarity Sl. Cloudy (Clear) 11/25/20 13:10 Urine pH 6.0 (5.0 - 8.0) 11/25/20 13:10 Ur Specific [place] 1.010 (1.002-1.030) 11/25/20 13:10 Urine Protein Negative mg/dl (Negative) 11/25/20 13:10 Urine Glucose (UA) 1000 mg/dl (Normal) H 11/25/20 13:10 Urine Ketones 50 mg/dl (Negative) H 11/25/20 13:10 Urine Occult Blood Negative /ul (Negative) 11/25/20 13:10 Urine Nitrite Negative (Negative) 11/25/20 13:10 Urine Bilirubin Negative mg/dL (Negative) 11/25/20 13:10 Urine Urobilinogen Normal mg/dl (Normal) 11/25/20 13:10 Ur Leukocyte Esterase Negative /ul (Negative) 11/25/20 13:10 Urine RBC 0 SEEN /hpf (0-5) 11/25/20 13:10 Urine WBC 0 SEEN /hpf (0-5) 11/25/20 13:10 Ur Squamous Epith Cells 0 SEEN /hpf (0-5) 11/25/20 13:10 Urine Bacteria 0 SEEN /hpf (None Seen) 11/25/20 13:10 Urine Mucus 0 SEEN /hpf (<or=2+) 11/25/20 13:10 Urine Opiates Screen NEGATIVE (< 300 ng/mL) 11/25/20 13:10 Urine Methadone Screen NEGATIVE (< 300 ng/mL) 11/25/20 13:10 Ur Barbiturates Screen NEGATIVE (< 200 ng/mL) 11/25/20 13:10 Ur Phencyclidine Scrn NEGATIVE (< 25 ng/mL) 11/25/20 13:10 Ur Amphetamines Screen NEGATIVE (<1000 ng/mL) 11/25/20 13:10 U Methamphetamin-MDMA NEGATIVE (< 500 ng/mL) 11/25/20 13:10 U Benzodiazepines Scrn NEGATIVE (< 200 ng/mL) 11/25/20 13:10 Urine Cocaine Screen NEGATIVE (< 300 ng/mL) 11/25/20 13:10 U Cannabinoids Screen NEGATIVE (< 50 ng/mL) 11/25/20 13:10 Ur Drug Screen Comment 11/25/20 13:10 Acetone Level SMALL (NEG) H 11/25/20 12:09 - EKG Initial EKG Interpretation: Sinus Tachycardia - EKG demonstrates a sinus tachycardia at a rate of 136. No concerning features of ACS or ectopy noted. - Medical Decision Making The EKG is sinus tachycardia. My interpretation of the chest x-ray is no acute process. Labs are consistent with DKA and an elevated lactic acid. Urinalysis shows no evidence of infection. The patient received 2 L of IV fluids and then was started on an insulin drip. Plan will be admission into the hospital. - Critical Care Time Critical care time (excluding procedures): 30-74 minutes - 35 minutes, Discussing w/Patient &/or Family/Boiler House Operator, Discussing w/Consultants, Arranging Admission or Transfer, Performing Direct Patient Care at Bedside ED Disposition - Plan for ED Patient: Disposition: Acute Care Hospital [facility] Diagnosis: DKA (diabetic ketoacidoses), Lactic acidosis, Palpitations Referrals: Deangelo Noel MD [Primary Care Provider] -
[2020-11-25 12:32] LABS: Prothrombin Time (Protime)PT. 12.4 SECONDS (11.7-14.9)
[2020-11-25 12:35] LABS: Absolute Lymphocyte Count 3.32 X10^3/uL (0.83-4.51); Absolute Neutrophil Count 7.3 X10^3/uL (2.0-7.7); Basophil# 0.06 X10^3/uL; Basophil% 0.5 % (0-1); Eosinophil# 0.36 X10^3/uL; Hematocrit 49.3 % (40-54); Hemoglobin 14.8 g/dL (13.0-16.5); Lymphocyte # 3.32 X10^3/ul (0.83-4.51); Lymphocyte % 27.3 % (19-41); Mean Corpuscular Hgb 26.4 pg (27.0-32.0); Mean Platelet Vol. 11.1 fl (6.2-12.0); Monocyte# 1.05 X10^3/uL; Monocyte% 8.6 % (0-10); NRBC Flagged by Analyzer 0 % (0-5); Neutrophil # 7.31 X10^3/uL (2.7-7.7); Platelet Count 370 K/mm3 (150-450); RBC Distribution Width CV 13.3 % (11.6-14.6); RBC Distribution Width SD 43.1 fl (35.1-43.9); White Blood Count 12.2 K/mm3 (4.4-11.0)
[2020-11-25 12:38] LABS: D-Dimer Quantitative (DVT/PE) <= 0.27 FEU/ug/m (0.27-0.49); Partial Thromboplast Time 21.4 Seconds (24.1-36.2)
[2020-11-25] MEDS: 0.9% Normal Saline 1,000 ML 1000 ML IV ×2 (13:03→13:35)
[2020-11-25 13:08] LABS: ALB/GLOB Ratio 0.9 RATIO (0.9-2.4); AST(SGOT) 15 U/L (15-37); Alanine Aminotransfer ALT/SGPT 39 U/L (16-61); Albumin, Serum 3.8 g/dL (3.2-5.0); Alkaline Phosphatase 229 U/L (45-117); Anion Gap 19 (5-15); BUN 26 mg/dL (7-18); BUN/Creat Ratio 17.1 RATIO (10-20); Calcium,Total 9.8 mg/dL (8.5-10.1); Chloride 86 mmol/L (98-107); Creatinine, Serum 1.52 mg/dL (0.70-1.30); EST Glomerular Filtration Rate 60 mL/min (>60); Est Glom Filt Rate - Afr Amer 73 mL/min (>60); Estimated Creatinine Clearance 73.13 ml/min; Globulin 4.4 g/dL (2.2-4.2); Glucose 822 mg/dL (74-106); Lipase 76 U/L (73-393); Potassium 3.3 mmol/L (3.5-5.1); Protein, Total 8.2 g/dL (6.4-8.2); Sodium Level 124 mmol/L (136-145); Thyroid Stim Hormone (TSH) 1.53 uIU/mL (0.358-3.74)
[2020-11-25 13:08] LABS: Lactic Acid 8.3 mmol/L (0.4-1.9)
[2020-11-25 13:19] LABS: Bacteria 0 SEEN /hpf (None Seen); Mucous, Urine 0 SEEN /hpf (<or=2+); Red Blood Cells-Urine 0 SEEN /hpf (0-5); Squamous Epithelial Cells - UA 0 SEEN /hpf (0-5); White Blood Cells 0 SEEN /hpf (0-5)
[2020-11-25 13:29] LABS: Color, Urine Straw (Yellow); Glucose, Dipstick 1000 mg/dl (Normal); Ketone-Dipstick 50 mg/dl (Negative); Leukocyte Esterase-Dipstick Negative /ul (Negative); Nitrite-Dipstick Negative (Negative); Occult Blood-Urine Negative /ul (Negative); Protein-Dipstick Negative (Negative); Urine Bilirubin Dipstick Negative (Negative); Urine Clarity Sl. Cloudy (Clear); Urine Urobilinogen Normal (Normal)
[2020-11-25 13:39] LABS: Amphetamine Urine VISTA NEGATIVE (<1000 ng/mL); Barbiturate Urine VISTA NEGATIVE (< 200 ng/mL); Benzodiazepine Urine VISTA NEGATIVE (< 200 ng/mL); Cocaine Urine VISTA NEGATIVE (< 300 ng/mL); Ecstacy Urine VISTA NEGATIVE (< 500 ng/mL); Methadone Urine VISTA NEGATIVE (< 300 ng/mL); PCP Urine VISTA NEGATIVE (< 25 ng/mL); THC Urine VISTA NEGATIVE (< 50 ng/mL); Vista UDS pH Range 5
[2020-11-25] MEDS: 0.9% Normal Saline 1,000 ML 250 ML IV (13:45)
--- NOTE | 2020-11-25 13:52 | HP.PCM_ITS ---
Problem List (1) DKA (diabetic ketoacidoses) Status: Acute Qualifiers: Diabetes mellitus type: type 1 Diabetes mellitus complication detail: without coma Qualified Code(s): E10.10 - Type 1 diabetes mellitus with ketoacidosis without coma (2) Lactic acidosis Status: Acute (3) Anxiety and depression Status: Chronic (4) Tobacco use Status: Chronic (5) DM type 1 (diabetes mellitus, type 1) Status: Chronic Qualifiers: Diabetes mellitus complication status: with neurologic complications Diabetes mellitus complication detail: with unspecified neuropathy Qualified Code(s): E10.40 - Type 1 diabetes mellitus with diabetic neuropathy, unspecified Comment: No data for review. Enc to bring meter. I did provide patient with very specific sliding scale to use which was helpful in the past. He is ask to see me at least every three months. Has appointment to have kendall removed from foot. History of Present Illness Date of Admission: 11/25/20 Chief Complaint: Palpitations, Hyperglycemia. The patient is a 25 y/o M w/ PMHx: Anxiety and Depression, Diabetes mellitus type I, Tobacco use who presents to the [facility] ED on 11/25/20 with history of palpitations and notes that he had similar onset 2 years prior with at that time concurrent chest discomfort and dyspnea with evaluation in the ED consistent with DKA with reported elevated blood sugars this morning reporting oral intake earlier in the day of sausage and eggs without issue and noting that he has been taking his medications. He denies any other symptoms including fever, chills, nausea, emesis. He notes the palpitations started approximately 1 in the morning on day of ED presentation. Work-up in the ED included T 97, heart rate 132, BP 142/80, respiratory rate 18, on her percent on room air, CBC with WC 12.2, hemoglobin 14.8, platelet 370 without marked shift, coags with PTT 21.4, D-dimer less than 0.27, INR 1.0, PT 12.4, CMP with sodium 124, potassium 3.3, chloride 86,, Dex at 19, anion gap 19, BUN/creatinine 26/1.52, glucose 822, lactic acid 8.3, alk phos 229, troponin less than 0.015, lipase 76, TSH 1.53, urinalysis with specific [place] 1.010, glucose 1000, ketone 50 otherwise not marked appearing, UDS negative, acetone level small, chest x-ray with no acute cardiopulmonary findings, EKG was sinus tachycardia with no acute evidence of ischemia. Past Medical History Past Medical History (Chronic Problems): Chronic Problems (Last Updated 12/23/17 @ 16:10 by Hermila Cast) Anxiety and depression (Chronic) Tobacco use (Chronic) DM type 1 (diabetes mellitus, type 1) (Chronic) No data for review. Enc to bring meter. I did provide patient with very specific sliding scale to use which was helpful in the past. He is ask to see me at least every three months. Has appointment to have kendall removed from foot. Anemia (Chronic) Medical History: Medical History (Last Updated 12/23/17 @ 16:10 by Hermila Cast) Type 1 diabetes mellitus E10.9 Dx :age 16 Last exacerbation : DKA : 2016 Hypoglycemic episode : years ago ER visit : 2016 Allergies gluten Adverse Reaction (Verified 11/25/20 11:50) Nausea/Vom/Diarrhea wheat Adverse Reaction (Verified 11/25/20 11:50) Nausea Home Medications: Ambulatory Orders Medication Instructions Recorded Insulin Glargine [Lantus SoloStar 40 units SC QHS 01/18/19 Pen] Insulin Lispro [Humalog KwikPen] See Protocol SQ TIDCM 01/18/19 Insulin Lispro [Humalog Kwikpen] 30 unit SQ TIDCM 01/18/19 Ibuprofen [Motrin] 600 mg PO Q6H PRN 11/25/20 Sertraline HCl [Zoloft] 50 mg PO DAILY 11/25/20 Surgical History: - - I+D abscesses prior, abdominal wound history prior, s/p skin grafts after skin bray Psychiatric History: No pertinent psych hx Lives: With Family Smoking Status: Current some day smoker Tobacco Use: Cigarettes - Rare occasional cigarette., Chew - 1 can chew daily. Alcohol: None Drugs: None - *Family History Maternal History Items: Heart Disease - Mother of an [place] in her 30s after a seizure Paternal History Items: COPD, Heart Disease Review of Systems Constitutional: Reports: Malaise, Weakness, Fatigue. Denies: Anorexia, Chills, Fever, Weight Change HEENT: Denies: Head Aches, Sinus Congestion, Sinus Drainage Cardiovascular: Reports: Palpitations. Denies: Chest Pain, Chest Pressure, Chest Tightness, Light Headedness, Orthopnea, Syncope Respiratory: Denies: Cough, Shortness of Breath, Shortness of breath at rest, Shortness of breath upon exertion, Sputum production Gastrointestinal: Denies: Abdominal Pain, Nausea, Vomiting Genitourinary: Denies: Dysuria Musculoskeletal: Reports: Joint Pain. Denies: Joint Tenderness Skin: Denies: Rash, Wounds Neurological: Denies: Focal weakness, Numbness, Tingling Psychiatric: Reports: Anxiety, Depression. Denies: Homicidal Ideations, Suicidal Ideations Hematologic/ Lymphatic: Denies: Easy Bruising, Easy Bleeding VTE Information - Inpt Only VTE Present on Admission: No VTE Mechan Device Prophylaxis: SCD's VTE Pharm Prophylaxis ordered?: Yes Patient Problems: Active and Suspected Problems (Last Updated 12/23/17 @ 16:10 by Hermila Cast) Palpitations (Acute) DKA (diabetic ketoacidoses) (Acute) Lactic acidosis (Acute) Subjective: Patient seated upright in the ED bed, fatigued appearing, heart rate still elevated. Objective: Physical Examination: General: awake, alert, oriented x 3 and cooperative, seated upright in the ED bed, fatigued, ongoing mild tachycardia noted. Skin: normal color, turgor, no icterus, cyanosis except noted chronic scars bilateral hands and occasional abrasion. HEENT: AT/NC, EOMI, PERRLA, MMM, no carotid bruits or JVD noted. Lungs: Diminished breath sounds, greater bases, appropriate effort, no rales, ronchi or wheezing. Heart: Mildly tachycardic with regular rhythm; no gallop, rub audible. Abdomen: soft, NTTP, ND, normal BS, no HSM. Extremities: no cyanosis, clubbing, or edema. Neurological: patient awake, alert, oriented as noted; cognitive function intact; pupils equally reactive to light and accomodation; cranial nerves II-XII grossly normal, moving all 4 extremities, no focal deficits, strength mildly global decrease secondary to acute presentation. Psychiatric: affect appears mildly fatigued otherwise normal, no acute evidence of depressive or anxiety feelings. - Physical Exam Vitals/I&O's: Vital Signs Temp Pulse Resp BP Pulse Ox 97.0 F L 105 H 16 123/76 H 98 11/25/20 11:50 11/25/20 13:51 11/25/20 13:51 11/25/20 13:51 11/25/20 12:07 Oxygen Delivery Method Room Air Weight: 156 lb 11.979 oz Body Mass Index (BMI) 23.8 Finger Stick Blood Glucose 53 Intake and Output for Last 24 Hours 11/23/20 11/24/20 11/25/20 23:59 23:59 23:59 Intake Total 533.33 / 533.33 Balance 533.33 / 533.33 Laboratory Results 11/25/20 12:09: WBC 12.2 H, RBC 5.60, Hgb 14.8, Hct 49.3, MCV 88.0, MCH 26.4 L, MCHC 30.0 L, RDW Std Deviation 43.1, RDW Coeff of Alec 13.3, Plt Count 370, MPV 11.1, Immature Gran % (Auto) 0.600, Neut % (Auto) 60.0, Lymph % (Auto) 27.3, [place] % (Auto) 8.6, Eos % (Auto) 3.0, Baso % (Auto) 0.5, Absolute Neuts (auto) 7.3, Absolute Lymphs (auto) 3.32, Nucleated RBC % 0 11/25/20 12:09: PT 12.4, INR 1.0, APTT 21.4 L, D-Dimer Quant (PE/DVT) <= 0.27 11/25/20 12:09: Sodium 124 L, Potassium 3.3 L, Chloride 86 L, Carbon Dioxide 19.0 L, Anion Gap 19 H, BUN 26 H, Creatinine 1.52 H, Estim Creat Clear Calc 73.13, Est GFR (MDRD) Af Amer 73, Est GFR (MDRD) Non-Af 60, BUN/Creatinine Ratio 17.1, Glucose 822 H*, Calcium 9.8, Total Bilirubin 0.50, AST 15, ALT 39, Alkaline Phosphatase 229 H, Troponin I < 0.015, Total Protein 8.2, Albumin 3.8, Globulin 4.4 H, Albumin/Globulin Ratio 0.9, Lipase 76, TSH 1.53 11/25/20 12:09: Acetone Level SMALL H 11/25/20 12:35: Lactic Acid 8.3 H* 11/25/20 13:10: Urine Color Straw, Urine Clarity Sl. Cloudy, Urine pH 6.0, Ur Specific [place] 1.010, Urine Protein Negative, Urine Glucose (UA) 1000 H, Urine Ketones 50 H, Urine Occult Blood Negative, Urine Nitrite Negative, Urine Bilirubin Negative, Urine Urobilinogen Normal, Ur Leukocyte Esterase Negative, Urine RBC 0 SEEN, Urine WBC 0 SEEN, Ur Squamous Epith Cells 0 SEEN, Urine Bacteria 0 SEEN, Urine Mucus 0 SEEN 11/25/20 13:10: Urine Opiates Screen NEGATIVE, Urine Methadone Screen NEGATIVE, Ur Barbiturates Screen NEGATIVE, Ur Phencyclidine Scrn NEGATIVE, Ur Amphetamines Screen NEGATIVE, U Methamphetamin-MDMA NEGATIVE, U Benzodiazepines Scrn NEGATIVE, Urine Cocaine Screen NEGATIVE, U Cannabinoids Screen NEGATIVE, Ur Drug Screen Comment Current Medications Dextrose (Dextrose 50%-Water 25 Gm/50 Ml Disp.Syrin) 0 gm IV X1 PRN; Protocol PRN Reason: Hypoglycemia Protocol Sodium Chloride () 1,000 mls @ 1,000 mls/hr IV .Q1H [facility] Stop: 11/25/20 14:14 Last Admin: 11/25/20 13:35 Dose: 1,000 mls/hr Documented by: Sodium Chloride () 1,000 mls @ 250 mls/hr IV .Q4H [facility] Last Admin: 11/25/20 13:45 Dose: 250 mls/hr Documented by: Insulin Human Lispro 100 unit/ (Sodium Chloride) 100 mls @ 7.11 mls/hr CONT INF .Q14H4M [facility]; Protocol Stop: 11/26/20 03:18 Last Admin: 11/25/20 13:45 Dose: 7.1 mls/hr Documented by: Assessment/Plan All Active Problems (Last Updated 12/23/17 @ 16:10 by Hermila Cast) Palpitations (Acute) Abdominal wall abscess (Resolved) Severe sepsis (Resolved) DKA (diabetic ketoacidoses) (Acute) Elevated blood sugar (Resolved) Lactic acidosis (Acute) Type I diabetes mellitus, uncontrolled (Acute) Ulcer of abdomen wall with fat layer exposed (Acute) The patient is a 25 y/o M w/ PMHx: Anxiety and Depression, Diabetes mellitus type I, Tobacco use who presents to the [facility] ED on 11/25/20 with history of palpitations and notes that he had similar onset 2 years prior with at that time concurrent chest discomfort and dyspnea with evaluation in the ED consistent with DKA with reported elevated blood sugars this morning. 1. DKA w/ Diabetes mellitus type I with significantly elevated lactic acid, hyponatremia, hypokalemia associated: Patient started on an insulin drip in the ED. Will admit to the ICU, consult ICU physician, continue on insulin drip, check serial K+, glucose w/ IVF changes pending these levels, serial chemistry, obtain mag, phos daily w/ repletion as needed, transition to home SC regimen when gap closed w/ overlap on drip, nutrition consultation. Encouraged diet and insulin regimen compliance. HgA1c requested. 2. Acute kidney injury: Secondary to #1, DKA. Admission BUN/Cr 26/1.52, prior baseline creatinine noted to be primarily 0.5-0.9. Will hydrate, hold nephrotoxic medications and repeat chemistry in AM. 3. Tobacco Abuse: Encouraged cessation, inpatient consultation per RT, NR if desired. 4. Anxiety and depression: We will continue patient home Zoloft regimen. 5. GERD: We will maintain on famotidine. 6. DVT prophylaxis: SCDs, Lovenox. Inpatient E&M: 81785 Init Hosp L3
[2020-11-25] MEDS: 0.9% Normal Saline 1,000 ML 999 ML IV (15:18)
[2020-11-25] MEDS: 0.9% Normal Saline 1,000 ML 150 ML IV (15:18)
[2020-11-25 15:33] LABS: Magnesium 2.3 mg/dL (1.6-2.6); Phosphorus 4.7 mg/dL (2.5-4.9)
[2020-11-25] MEDS: Potassium Chloride Oral Tablet 20 MEQ 40 MEQ PO (15:35)
[2020-11-25] MEDS: Famotidine 200 MG/20 ML MDV 20 MG in 0.9% Normal Saline (Pres. free 8 ML 300 MG IV (15:50)
[2020-11-25 16:01] LABS: Bedside Glucose 144 mg/dL (70-110)
[2020-11-25 16:01] LABS: Bedside Glucose 199 mg/dL (70-110)
[2020-11-25 16:01] LABS: Bedside Glucose 287 mg/dL (70-110)
[2020-11-25 16:03] LABS: Anion Gap 8 (5-15); BUN 19 mg/dL (7-18); BUN/Creat Ratio 25.7 RATIO (10-20); Calcium,Total 8.7 mg/dL (8.5-10.1); Chloride 103 mmol/L (98-107); Creatinine, Serum 0.74 mg/dL (0.70-1.30); EST Glomerular Filtration Rate 139 mL/min (>60); Est Glom Filt Rate - Afr Amer 168 mL/min (>60); Glucose 190 mg/dL (74-106); Potassium 3.7 mmol/L (3.5-5.1); Sodium Level 136 mmol/L (136-145)
--- NOTE | 2020-11-25 16:28 | NURSING ---
Patient arrived from the ER with RN at bedside and insulin gtt infusing. Patient awake and alert, transferred self to ICU bed, he is very unkempt with apparent poor hygiene. Physical assessment largely within normal limits, patient cooperative and pleasant.
[2020-11-25 16:42] LABS: Reflex Lactate? Y
[2020-11-25 16:55] LABS: Hemoglobin A1c 11.3 % (3.8-5.6)
[2020-11-25 18:31] LABS: Anion Gap 6 (5-15); BUN 17 mg/dL (7-18); BUN/Creat Ratio 32.9 RATIO (10-20); Calcium,Total 8.2 mg/dL (8.5-10.1); Chloride 106 mmol/L (98-107); Creatinine, Serum 0.52 mg/dL (0.70-1.30); EST Glomerular Filtration Rate 209 mL/min (>60); Est Glom Filt Rate - Afr Amer 253 mL/min (>60); Estimated Creatinine Clearance 213.75 ml/min; Glucose 132 mg/dL (74-106); Potassium 3.9 mmol/L (3.5-5.1); Sodium Level 138 mmol/L (136-145)
[2020-11-25 18:37] LABS: Lactic Acid 1.2 mmol/L (0.4-1.9)
[2020-11-25 20:36] LABS: Bedside Glucose 91 mg/dL (70-110)
[2020-11-25] MEDS: Nicotine Polacrilex 2 MG GUM PO (20:50)
[2020-11-25] MEDS: Famotidine 20 MG Tablet PO (20:51)
[2020-11-25] MEDS: 0.9% Normal Saline 1,000 ML 125 ML IV (20:53)
[2020-11-26 03:10] VITALS: BP 101/46; PULSE 83; RESP 18; TEMP 36.7; O2SAT 94
[2020-11-26 03:25] LABS: Absolute Lymphocyte Count 6.56 X10^3/uL (0.83-4.51); Absolute Neutrophil Count 3.6 X10^3/uL (2.0-7.7); Basophil# 0.06 X10^3/uL; Basophil% 0.5 % (0-1); Eosinophil# 0.69 X10^3/uL; Eosinophils% 5.9 % (0-5); Hematocrit 37.5 % (40-54); Hemoglobin 11.6 g/dL (13.0-16.5); Lymphocyte # 6.56 X10^3/ul (0.83-4.51); Lymphocyte % 55.6 % (19-41); Mean Corp Hgb Conc 30.9 g/dL (32-36); Mean Corpuscular Hgb 26.1 pg (27.0-32.0); Mean Corpuscular Volume 84.3 fL (80-94); Mean Platelet Vol. 10.5 fl (6.2-12.0); Monocyte# 0.91 X10^3/uL; Monocyte% 7.7 % (0-10); NRBC Flagged by Analyzer 0 % (0-5); Neutrophil # 3.55 X10^3/uL (2.7-7.7); Neutrophil % 30.1 % (47-70); POSITIVE DIFFERENTIAL YES; Platelet Count 294 K/mm3 (150-450); RBC Distribution Width CV 13.2 % (11.6-14.6); RBC Distribution Width SD 40.6 fl (35.1-43.9); Red Blood Count 4.45 M/mm3 (4.6-6.2); White Blood Count 11.8 K/mm3 (4.4-11.0)
[2020-11-26 04:11] LABS: Differential Indicated SCAN CRITERIA MET
[2020-11-26 05:27] LABS: AST(SGOT) 15 U/L (15-37); Alanine Aminotransfer ALT/SGPT 28 U/L (16-61); Albumin, Serum 2.5 g/dL (3.2-5.0); Alkaline Phosphatase 129 U/L (45-117); Anion Gap 5 (5-15); BUN 11 mg/dL (7-18); BUN/Creat Ratio 24.6 RATIO (10-20); Calcium,Total 7.5 mg/dL (8.5-10.1); Chloride 109 mmol/L (98-107); Creatinine, Serum 0.45 mg/dL (0.70-1.30); EST Glomerular Filtration Rate 248 mL/min (>60); Est Glom Filt Rate - Afr Amer 300 mL/min (>60); Globulin 2.6 g/dL (2.2-4.2); Glucose 52 mg/dL (74-106); Potassium 3.5 mmol/L (3.5-5.1); Protein, Total 5.1 g/dL (6.4-8.2); Sodium Level 141 mmol/L (136-145)
[2020-11-26 07:25] VITALS: O2SAT 97
[2020-11-26 07:50] VITALS: BP 101/68; PULSE 65; RESP 16; TEMP 36.4; O2SAT 97
[2020-11-26 08:54] LABS: Hemoglobin A1c 11.5 % (3.8-5.6)
--- NOTE | 2020-11-26 09:30 | CASEMGMT ---
KEN KAHN Face to Face with patient for initial transition planning/care coordination assessment. RN CM introduced self and role at [facility]. Patient lying in bed, alert and oriented. Patient willing to participate in assessment and is able to answer all questions appropriately. Care providers, pharmacy, and demographics verified. Patient wishes to discharge home, denies need for home health at this time. Patient states he has no further needs or concerns at this time. CM to follow for discharge planning needs that may arise. PCP: Sadie Specialists: none, information card given for Dr Caldera, associate veterinarian and encouraged patient to discuss with PCP Preferred Pharmacy: [facility] Insurance: [place] Prescription Benefit: yes Living Will/HPOA: none LNOK: father Living Arrangements: Patient lives with father in a mobile home. Patient states he is independent and able to ambulate stairs. Transportation: father DME/HHC: Patient states he has glucometer, testing supplies, and insulin. Patient denies additional needs at this time. Disposition Plan: Patient to discharge home with family support and follow-up plans in place. Beth MANTILLA, RN, CM
[2020-11-26] MEDS: Sertraline 50 MG Tablet PO (09:45)
[2020-11-26] MEDS: Famotidine 20 MG Tablet PO (09:45)
[2020-11-26] MEDS: Enoxaparin 40 MG/0.4 ML Syringe SC (09:45)
--- NOTE | 2020-11-26 11:59 | DCINST_ITS ---
- Discharge Diagnoses Current Active Problems: Current Active and Chronic Problems (Last Updated 12/23/17 @ 16:10 by Hermila Cast) Palpitations (Acute) Anxiety and depression (Chronic) Tobacco use (Chronic) DM type 1 (diabetes mellitus, type 1) (Chronic) No data for review. Enc to bring meter. I did provide patient with very specific sliding scale to use which was helpful in the past. He is ask to see me at least every three months. Has appointment to have kendall removed from foot. DKA (diabetic ketoacidoses) (Acute) Lactic acidosis (Acute) You will use the following diet at home:: Calorie/Carbohydrate Controlled (specify 1200, 1400, etc) - 2200 MICHELLE Your food should be the consistency of: Regular Your liquids should be the consistency of: Regular/Thin Discharge Activity: Return to Normal Activity Weight Bearing Status: Full weight bearing Allergies/Adverse Reactions: Allergies gluten Adverse Reaction (Verified 11/25/20 11:50) Nausea/Vom/Diarrhea wheat Adverse Reaction (Verified 11/25/20 11:50) Nausea Medications to take at Discharge Insulin Lispro [Humalog KwikPen] See Protocol SQ TIDCM 01/18/19 Ibuprofen [Motrin] 600 mg PO Q6H PRN 11/25/20 Sertraline HCl [Zoloft] 50 mg PO DAILY 11/25/20 Insulin Glargine [Lantus SoloStar Pen] 50 units SC QHS #1 pen 11/26/20 Insulin Lispro [Humalog Kwikpen] 35 unit SQ TIDCM #1 ml 11/26/20 The following prescriptions were given: Insulin Lispro [Humalog Kwikpen] 35 unit SQ TIDCM #1 ml Insulin Glargine [Lantus SoloStar Pen] 50 units SC QHS #1 pen Primary Care Physician: Deangelo Noel MD [Primary Care Provider] - Please follow up with your Primary Care Physician in: IN ONE WEEK Test Results: Test results from this visit will be discussed in further detail at your follow- up appointment, if applicable.
[2020-11-26] MEDS: Insulin Lispro 100 UNIT/ML INSULN.PEN SC (12:50)
[2020-11-26 12:56] LABS: Bedside Glucose 168 mg/dL (70-110)
--- NOTE | 2020-11-28 10:05 | PCM.DC.SUM ---
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 Enc to bring meter. I did provide patient with very specific sliding scale to use which was helpful in the past. He is ask to see me at least every three months. Has appointment to have kendall removed from foot. Anemia (Chronic) Hospital Course and Treatment Operations: None Procedures: None Summary of Care Provided: The patient is a 25 year old M was seen in the emergency room at [facility] with chief complaint of palpitations, work-up in the emergency room showed the patient to be in mild DKA, EKG showed a sinus tachycardia, lactic acid was elevated, there is no sign of infection. Patient was given IV fluids and placed on insulin drip and he was transferred to ICU for further care, patient's blood sugars rapidly came under control, he was seen in consultation by dietary but it became evident that the patient had a chronic learning disability and although he stated he understood his type 1 diabetes, it was obvious from discussion that he was unable to fully understand his disease. I contacted his PCP to arrange for follow-up, his PCP told me by phone that the patient is noncompliant with his office visits. Patient lives with his father and according to his PCP, his father has a similar learning disability. On 11/26/2020, patient was seen and examined: On examination he appeared in good health and spirits. Vital signs as documented. Skin warm and dry and without overt rashes. Neck without JVD, neck was supple, trachea midline, thyroid was normal. Lungs clear bilaterally, normal air movement was noted. Heart exam notable for regular rhythm, normal sounds and absence of murmurs, rubs or gallops. Abdomen unremarkable and without evidence of organomegaly, masses, or abdominal aortic enlargement. Bowel sounds are present, abdomen is not distended. Extremities nonedematous, no cyanosis was noted, no clubbing was noted. Neuro: Cranial nerves II through XII are grossly intact, no focal motor deficits were noted, sensation to light touch and pinprick intact, motor exam 5/5 throughout. Psych: Patient is alert and oriented x3, he does not appear anxious or depressed, he does not appear agitated. Patient was felt to be stable for discharge home on 11/26/2020. Patient Problems: Active and Suspected Problems (Last Updated 12/23/17 @ 16:10 by Hermila Cast) Palpitations (Acute) DKA (diabetic ketoacidoses) (Acute) Lactic acidosis (Acute) - Physical Exam Vitals/I&O's: Vital Signs Temp Pulse Resp BP Pulse Ox 97.5 F L 65 16 101/68 97 11/26/20 07:50 11/26/20 07:50 11/26/20 07:50 11/26/20 07:50 11/26/20 07:50 Oxygen Delivery Method Room Air Weight: 71.441 kg Body Mass Index (BMI) 23.3 Finger Stick Blood Glucose 91 Intake and Output for Last 24 Hours 11/26/20 11/27/20 11/28/20 23:59 23:59 23:59 Intake Total 1000 / 1000 Balance 1000 / 1000 Discharge Activity: Return to Normal Activity Weight Bearing Status: Full weight bearing Home Medications: Medications to take at Discharge Insulin Lispro [Humalog KwikPen] See Protocol SQ TIDCM 01/18/19 Ibuprofen [Motrin] 600 mg PO Q6H PRN 11/25/20 Sertraline HCl [Zoloft] 50 mg PO DAILY 11/25/20 Insulin Glargine [Lantus SoloStar Pen] 50 units SC QHS #1 pen 11/26/20 Insulin Lispro [Humalog Kwikpen] 35 unit SQ TIDCM #1 ml 11/26/20 Following Prescriptions Were Given to Patient: Insulin Lispro [Humalog Kwikpen] 35 unit SQ TIDCM #1 ml Insulin Glargine [Lantus SoloStar Pen] 50 units SC QHS #1 pen Primary Care Physician: Deangelo Noel MD [Primary Care Provider] - Please follow up with your Primary Care Physician in: IN ONE WEEK Disposition: Home Minutes spent on discharge:: 32 Patient Condition:: Stable Medical Necessity - Tobacco Use Smoking Status: Current some day smoker Tobacco Use: Cigarettes, Chew Meaningful Use Info Meaningful Use Diagnoses (Choose all that apply): None applicable Inpatient E&M: 66285 Disch Hosp
== END 2020-11-26 13:28 | disposition home or self-care (01) | DRG 420 ==
LOC: ED 13:26 → ICU 14:09
PROVIDERS: Admitting Provider Family Medicine; Emergency Provider Emergency Medicine; PCP Family Medicine; Visit Provider Internal Medicine
DX: E10.10 Type 1 diabetes mellitus with ketoacidosis without coma (principal); E10.40 Type 1 diabetes mellitus with diabetic neuropathy, unspecified; N17.9 Acute kidney failure, unspecified; E87.1 Hypo-osmolality and hyponatremia; E87.6 Hypokalemia; K21.9 Gastro-esophageal reflux disease without esophagitis; F79 Unspecified intellectual disabilities; F81.9 Developmental disorder of scholastic skills, unspecified; F32.9 Major depressive disorder, single episode, unspecified; F41.9 Anxiety disorder, unspecified; F17.210 Nicotine dependence, cigarettes, uncomplicated; F17.220 Nicotine dependence, chewing tobacco, uncomplicated; Z91.19 Patient's noncompliance with other medical treatment and regimen; Z79.4 Long term (current) use of insulin; Z79.899 Other long term (current) drug therapy; Z81.0 Family history of intellectual disabilities
CPT/HCPCS: 71045; 80048; 80053; 80307; 81001; 82009; 82962; 83036; 83605; 83690; 83735; 84100; 84443; 84484; 85025; 85379; 85610; 85730; 93005; 97802; 99251; 99285; 99406; J7030; A4216; G0463; J3490

== ENCOUNTER 2021-03-05 11:27 | Inpatient (IN) | payer MEDICAID, SELFPAY ==
[2020-11-25 14:37] VITALS: BMI 23.3
[2021-03-05] VITALS (20 sets, daily range): BP systolic 109–152; BP diastolic 53–106; PULSE 102–140; RESP 14–20; TEMP 36.6–37.1; O2SAT 96–98; BMI 22.0; BMI 20.7
--- NOTE | 2021-03-05 11:42 | EDS_ITS ---
HPI History of Present Illness Chief Complaint: Abscess Informant: patient Onset/Context/Timing Onset: Days Context: Sudden Onset Timing: Continuous Quality: Tender red hard area Location: Left maxillary Current Severity: Mild Maximum Severity: Mild Worsened by: Nothing Relieved by: Nothing Associated Symptoms Associated Symptoms: Nothing Narrative Narrative: Patient is a 26-year-old male with diabetes who presents because of a red tender firm area left maxillary region. He is concerned he has an abscess. He denies polyuria, polydipsia or nocturia. He denies thirst or dry mouth. He states he may have scratched his face weed whacking. This started several days ago. He denies fever, chills or night sweats. He denies dental pain. Prior similar symptoms: No Recent Illness/Hospitalization: No PFSH PFSH Medical History Type 1 diabetes mellitus Home Medications ibuprofen 600 mg PO Q6H PRN 11/25/20 [History Last Taken 03/04/21] ferrous sulfate [FeroSul] 325 mg PO BREAKFAST 03/05/21 [History Last Taken 03/04/21] insulin lispro 30 unit SQ TIDCM 03/05/21 [History Last Taken 03/04/21] sertraline 100 mg PO DAILY 03/05/21 [History Last Taken 03/04/21] Allergy/AdvReac Type Severity Reaction Status Date / Time gluten AdvReac Nausea/Vom/ Verified 03/05/21 11:28 Diarrhea wheat AdvReac Nausea Verified 03/05/21 11:28 Social History (Updated 03/05/21 @ 11:[address] Arik Boswell MD) household members: family Smoking Status: Current every day smoker tobacco type: cigarettes Smokeless tobacco user: chewing tobacco second hand exposure: Yes alcohol intake: never substance use type: does not use ROS ROS ED Constitutional Constitutional ED: Denies chills, fever(s), subjective, sweats or weight loss Eyes Eyes: Denies blurry vision, change in vision or diplopia ENT ENT ED: Denies ear pain, rhinorrhea or sore throat Cardiovascular Cardiovascular: Denies chest pain, orthopnea, palpitations, paroxysmal nocturnal dyspnea or racing heartbeat Respiratory/Chest Respiratory/Chest: Denies dyspnea, dyspnea on exertion, orthopnea or paroxysmal nocturnal dyspnea Gastrointestinal Gastrointestinal: Denies nausea or vomiting Genitourinary Genitourinary ED: Denies urinary frequency Integumentary Reports abscess and rash Endocrine Endocrinology: Denies cold intolerance, heat intolerance, polydipsia, polyphagia or polyuria Allergic/Immunologic Allergic/Immunologic ED: Denies mouth swelling, tongue swelling or urticaria EXAM Physical Exam Const Vital Signs: 03/05/21 11:28 03/05/21 11:49 03/05/21 12:39 Temperature 97.8 F 97.8 F 98.8 F Temperature Source Temporal Temporal Oral Pulse Rate 140 H 140 H 108 H Respiratory Rate 15 15 16 Blood Pressure 137/82 H 137/82 H 129/88 H Blood Pressure Mean 100 100 101 Pulse Ox 97 97 98 Oxygen Delivery Method Room Air Room Air Room Air 03/05/21 13:13 Temperature 98.2 F Temperature Source Oral Pulse Rate 114 H Respiratory Rate 16 Blood Pressure 139/74 H Blood Pressure Mean 95 Pulse Ox 98 Oxygen Delivery Method Room Air Positive well nourished and well developed General Appearance ED: well developed HEENT Reports TM's clear and moist mucous membranes HEENT Narrative: There is an area of erythema with warmth and induration left maxillary region that is 4 cm in diameter. There is no fluctuance. There is a small eschar in the middle. There is no preauricular lymphadenopathy. There is no anterior cervical lymphadenopathy. tenderness Tympanic Membrane ED: Yes TM's clear Eyes PERRL and EOMs intact bilaterally General Eye ED: Negative for pale conjunctiva or scleral icterus Neck no lymphadenopathy, supple and no JVD Chest Wall inspection of chest normal and palpation of chest normal Resp normal respiratory effort and clear to auscultation bilaterally Effort and Inspection: Negative for pain with movement Cardio regular rhythm, S1 normal heart sound, S2 normal heart sound and no murmurs Rate: tachycardic Neuro oriented x3, CN's II-XII intact bilaterally and no sensory deficits noted Sensorium / Orientation: alert Motor Exam: strength 5/5 throughout Psych mental status grossly normal Skin Rashes: rashes noted Previously described MDM MDM MDM Narrative Medical decision making narrative: . Patient's heart rate is 140 will have nurse reassess this. Patient has evidence of cellulitis. He may be tachycardic is out in the hot humid weather and not drinking enough fluids. Patient does have evidence of cellulitis of the face. Will treat with doxycycline for strep and staph coverage.Will obtain PGT. If GGT is markedly elevated will GGT was greater than 400. Patient also made comment that he has been drinking. Work-up was initiated which included CBC, comprehensive metabolic panel, alcohol level and tox screen. Lactate was drawn. He will receive 1 L of normal saline wide open. Since patient has 2 sirs criteria and lactate is greater than 6.7 he received additional fluids for septic shock. He was started on antibiotics. He was informed he will need to be admitted to the hospital. Of note his alcohol level is nondetectable. He is not been able to urinate in spite of IV fluids. The hospitalist was paged for admission to ICU. Lab Data Attestation: I reviewed the patient's lab results. Labs: Laboratory Results - last 24 hr 03/05/21 03/05/21 03/05/21 11:52 12:15 12:15 WBC 14.7 H RBC 5.30 Hgb 13.7 Hct 43.0 MCV 81.1 MCH 25.8 L MCHC 31.9 L RDW Std Deviation 39.3 RDW Coeff of Alec 13.5 Plt Count 309 MPV 10.8 Immature Gran % (Auto) 0.200 Neut % (Auto) 67.0 Lymph % (Auto) 23.4 [place] % (Auto) 6.3 Eos % (Auto) 2.7 Baso % (Auto) 0.4 Absolute Neuts (auto) 9.8 H Absolute Lymphs (auto) 3.44 Nucleated RBC % 0 Sodium 134 L Potassium 4.0 Chloride 98 Carbon Dioxide 21.0 Anion Gap 15 BUN 14 Creatinine 1.17 Estim Creat Clear Calc 93.36 Est GFR (MDRD) Af Amer 99 Est GFR (MDRD) Non-Af 81 BUN/Creatinine Ratio 12.0 Glucose 362 H Lactic Acid Calcium 8.1 L Total Bilirubin 0.40 AST 19 ALT 38 Alkaline Phosphatase 189 H Total Protein 6.5 Albumin 2.9 L Globulin 3.6 Albumin/Globulin Ratio 0.8 L Ethyl Alcohol Acetone Level POC Glucose 423 H 03/05/21 03/05/21 03/05/21 12:15 12:15 12:15 WBC RBC Hgb Hct MCV MCH MCHC RDW Std Deviation RDW Coeff of Alec Plt Count MPV Immature Gran % (Auto) Neut % (Auto) Lymph % (Auto) [place] % (Auto) Eos % (Auto) Baso % (Auto) Absolute Neuts (auto) Absolute Lymphs (auto) Nucleated RBC % Sodium Potassium Chloride Carbon Dioxide Anion Gap BUN Creatinine Estim Creat Clear Calc Est GFR (MDRD) Af Amer Est GFR (MDRD) Non-Af BUN/Creatinine Ratio Glucose Lactic Acid 6.7 H* Calcium Total Bilirubin AST ALT Alkaline Phosphatase Total Protein Albumin Globulin Albumin/Globulin Ratio Ethyl Alcohol < 3.0 Acetone Level SMALL H POC Glucose EKG Initial EKG: Attestation: I personally reviewed and interpreted this EKG as follows: Interpretation: Sinus Tachycardia Comments: Sinus tachycardia with a ventricular rate of [address] interval is 146 ms. QRS duration 82 ms. QT duration 302 ms. [place] is normal. Critical Care Time Critical Care Time: Yes Critical care time (excluding procedures): 30-74 minutes (33 minutes), Including time spent: (History, physical exam, review of prior records, initiation of therapy), Discussing w/Patient &/or Family/Educational Psychology Teacher, Discussing w/Consultants and Arranging Admission or Transfer Discharge Plan Triage Chief Complaint: Abscess ED Provider: Arik Boswell Dx/Rx/DC Orders Clinical Impression: Septic shock, DM type 1 (diabetes mellitus, type 1), Cellulitis diffuse, face Prescriptions: No Action ibuprofen 600 MG tablet 600 mg PO Q6H PRN (Reason: Pain 1-10 Or Fever) RF: 0 ferrous sulfate [FeroSul] 325 mg (65 mg iron) tablet 325 mg PO BREAKFAST RF: 0 sertraline 100 mg tablet 100 mg PO DAILY RF: 0 insulin lispro 100 UNIT/ML insulin pen 30 unit SQ TIDCM RF: 0 Primary Care Provider: Deangelo Noel Referrals: Deangelo Noel MD [Primary Care Provider] - Disposition Disposition: Acute Care [facility]
[2021-03-05 11:55] LABS: Bedside Glucose 423 mg/dL (70-110)
--- NOTE | 2021-03-05 11:58 | EKG12_ITS ---
Test Reason : Blood Pressure : / mmHG Vent. Rate : 123 BPM Atrial Rate : 123 BPM P-R Int : 146 ms QRS Dur : 082 ms QT Int : 302 ms P-R-T Axes : 065 069 049 degrees QTc Int : 432 ms Sinus tachycardia Otherwise normal ECG Confirmed by MEGAN MIRELES, NIKKI ([id number]), associate editor COREY MICHAEL ([id number]) on 03/10/2021 9:08:21 AM Referred By: [facility] Confirmed By:CHAVEZ GUZMAN MD
[2021-03-05] MEDS: 0.9% Normal Saline 1,000 ML 1000 ML IV ×2 (12:23→14:44)
[2021-03-05 12:32] LABS: Absolute Lymphocyte Count 3.44 X10^3/uL (0.83-4.51); Absolute Neutrophil Count 9.8 X10^3/uL (2.0-7.7); Basophil# 0.06 X10^3/uL; Basophil% 0.4 % (0-1); Eosinophils% 2.7 % (0-5); Hemoglobin 13.7 g/dL (13.0-16.5); Lymphocyte # 3.44 X10^3/ul (0.83-4.51); Lymphocyte % 23.4 % (19-41); Mean Corp Hgb Conc 31.9 g/dL (32-36); Mean Corpuscular Hgb 25.8 pg (27.0-32.0); Mean Corpuscular Volume 81.1 fL (80-94); Mean Platelet Vol. 10.8 fl (6.2-12.0); Monocyte# 0.93 X10^3/uL; Monocyte% 6.3 % (0-10); NRBC Flagged by Analyzer 0 % (0-5); Neutrophil # 9.83 X10^3/uL (2.7-7.7); Platelet Count 309 K/mm3 (150-450); RBC Distribution Width CV 13.5 % (11.6-14.6); RBC Distribution Width SD 39.3 fl (35.1-43.9); White Blood Count 14.7 K/mm3 (4.4-11.0)
[2021-03-05 12:48] LABS: ALB/GLOB Ratio 0.8 RATIO (0.9-2.4); AST(SGOT) 19 U/L (15-37); Alanine Aminotransfer ALT/SGPT 38 U/L (16-61); Albumin, Serum 2.9 g/dL (3.2-5.0); Alkaline Phosphatase 189 U/L (45-117); Anion Gap 15 (5-15); BUN 14 mg/dL (7-18); Calcium,Total 8.1 mg/dL (8.5-10.1); Chloride 98 mmol/L (98-107); Creatinine, Serum 1.17 mg/dL (0.70-1.30); EST Glomerular Filtration Rate 81 mL/min (>60); Est Glom Filt Rate - Afr Amer 99 mL/min (>60); Estimated Creatinine Clearance 93.36 ml/min; Globulin 3.6 g/dL (2.2-4.2); Glucose 362 mg/dL (74-106); Protein, Total 6.5 g/dL (6.4-8.2); Sodium Level 134 mmol/L (136-145)
[2021-03-05 12:57] LABS: Alcohol, Blood (Medical)-Serum < 3.0 mg/dL
[2021-03-05 13:05] LABS: Lactic Acid 6.7 mmol/L (0.4-1.9)
[2021-03-05 14:11] LABS: Blood Gas Specimen Type VEN; VBG BASE EXCESS 1 mmol/L (-1.0-3.5); VBG Bicarbonate 25 mmol/L (22-26); VBG PO2 75 mmHg (25-40); VBG SO2 96 % (50-70); VBG TCO2 26 mmol/L (23-33); VBG pCO2 34.8 mmHg (41-51); VBG pH 7.46 (7.32-7.42)
--- NOTE | 2021-03-05 14:40 | PCM.HP.STD ---
[facility] - General General Date of Admission: 03/05/21 Date of Service: 03/05/21 Chief Complaint: Left facial swelling HPI Narrative UNA DURON, is a 26 M with past medical history significant for diabetes mellitus type 1 who presented with left facial swelling. Patient symptoms started 3 days prior to his admission. He initially noticed a pimple which has since gotten progressively worse. He also did experience pain as well as some subjective fever. Was seen in the emergency department. An assessment of septic shock secondary to facial cellulitis made. Patient started on broad-spectrum antibiotic therapy admitted to the intensive care unit for further management [facility] Medical History Type 1 diabetes mellitus Home Medications ibuprofen 600 mg PO Q6H PRN 11/25/20 [History Last Taken 03/04/21] ferrous sulfate [FeroSul] 325 mg PO BREAKFAST 03/05/21 [History Last Taken 03/04/21] insulin lispro 30 unit SQ TIDCM 03/05/21 [History Last Taken 03/04/21] sertraline 100 mg PO DAILY 03/05/21 [History Last Taken 03/04/21] Allergy/AdvReac Type Severity Reaction Status Date / Time gluten AdvReac Nausea/Vom/ Verified 03/05/21 11:28 Diarrhea wheat AdvReac Nausea Verified 03/05/21 11:28 Family History (Updated 03/05/21 @ 14:[address] Richard Cruz MD) Father Diabetes Social History (Updated 03/05/21 @ 14:[address] Richard Cruz MD) household members: family Smoking Status: Current every day smoker tobacco type: cigarettes Smokeless tobacco user: chewing tobacco second hand exposure: Yes alcohol intake: never substance use type: does not use ROS ROS Narrative GENERAL: chills, HEENT: Left facial swelling RESPIRATORY: denies cough, CARDIAC: denies chest pain, palpitations, GASTROINTESTINAL: denies abdominal pain, nausea, GENITOURINARY: denies dysuria, urgency, frequency, EXTREMITY: denies swelling MUSCULOSKELETAL: denies current joint pain or tenderness NEUROLOGIC: denies focal numbness, weakness, tingling HEMATOLOGIC: denies easy bruising and/or hemorrhage INTEGUMENT: denies rashes PSYCHIATRIC: denies suicidal or homicidal ideation Vital Signs Vital Signs Vital Signs: 03/05/21 11:28 03/05/21 11:49 03/05/21 12:39 Temperature 97.8 F 97.8 F 98.8 F Temperature Source Temporal Temporal Oral Pulse Rate 140 H 140 H 108 H Respiratory Rate 15 15 16 Blood Pressure 137/82 H 137/82 H 129/88 H Blood Pressure Mean 100 100 101 Pulse Ox 97 97 98 Oxygen Delivery Method Room Air Room Air Room Air 03/05/21 13:13 Temperature 98.2 F Temperature Source Oral Pulse Rate 114 H Respiratory Rate 16 Blood Pressure 139/74 H Blood Pressure Mean 95 Pulse Ox 98 Oxygen Delivery Method Room Air Weight Weight: 67.8 kg Body Mass Index (BMI) 22.0 Physical Exam Narrative GENERAL: cooperative HEENT:An area of induration over the left masseter EYES; Anicteric, Normal Conjunctiva NECK; supple, normal thyroid, RESPIRATORY: Diminished to auscultation CARDIOVASCULAR: Regular S1 S2, GI: soft, normoactive bowel sounds, : No Renal angle tenderness; EXTREMITIES: No edema, no clubbing, MUSCULOSKELETAL: no muscle waisting NEURO: Awake; no lateralizing signs. SKIN: As described above PSYCH; Flat affect Results Lab / Micro Data Result Diagrams: 03/05/21 12:15 03/05/21 12:15 Labs: Laboratory Results - last 24 hr 03/05/21 11:52: POC Glucose 423 H 03/05/21 12:15: WBC 14.7 H, RBC 5.30, Hgb 13.7, Hct 43.0, MCV 81.1, MCH 25.8 L, MCHC 31.9 L, RDW Std Deviation 39.3, RDW Coeff of Alec 13.5, Plt Count 309, MPV 10.8, Immature Gran % (Auto) 0.200, Neut % (Auto) 67.0, Lymph % (Auto) 23.4, [place] % (Auto) 6.3, Eos % (Auto) 2.7, Baso % (Auto) 0.4, Absolute Neuts (auto) 9.8 H, Absolute Lymphs (auto) 3.44, Nucleated RBC % 0 03/05/21 12:15: Sodium 134 L, Potassium 4.0, Chloride 98, Carbon Dioxide 21.0, Anion Gap 15, BUN 14, Creatinine 1.17, Estim Creat Clear Calc 93.36, Est GFR (MDRD) Af Amer 99, Est GFR (MDRD) Non-Af 81, BUN/Creatinine Ratio 12.0, Glucose 362 H, Calcium 8.1 L, Total Bilirubin 0.40, AST 19, ALT 38, Alkaline Phosphatase 189 H, Total Protein 6.5, Albumin 2.9 L, Globulin 3.6, Albumin/Globulin Ratio 0.8 L 03/05/21 12:15: Ethyl Alcohol < 3.0 03/05/21 12:15: Lactic Acid 6.7 H* 03/05/21 12:15: Acetone Level SMALL H ABG Data ABG results: ABG 03/05/21 14:04 Specimen Type JAIDEN VBG pH 7.46 H VBG pO2 75 H VBG HCO3 25 VBG Total CO2 26 VBG O2 Sat (Calc) 96 H VBG Base Excess 1 POC Mix VBG pCO2 Pt Tmp 34.8 L Assessment & Plan Assessment/Plan (1) Septic shock: (2) Cellulitis diffuse, face: (3) DM type 1 (diabetes mellitus, type 1): QUALIFIERS: Diabetes mellitus complication status: with neurologic complications Diabetes mellitus complication detail: with unspecified neuropathy Qualified Code(s): E10.40 - Type 1 diabetes mellitus with diabetic neuropathy, unspecified PLAN: Patient is a 26-year-old gentleman with history of diabetes mellitus type 1 presenting with left facial swelling 1.Septic shock ?This is evidenced by patient elevated lactic acid level of 6 with a source of infection the left facial cellulitis. Patient has been admitted to the intensive care unit management protocol regarding IV fluid resuscitation, broad-spectrum antibiotic therapy as well as cultures been sent. As part of patient's evaluation ordered CT of the face and sinus with contrast 2. Left facial cellulitis ?Patient presented with septic shock management as discussed above 3. Diabetes mellitus type 1 ?Uncontrolled. Held patient home regimen patient was placed on scheduled long-acting insulin Lantus 25 mg twice daily in addition to preprandial short-acting insulin 15 units of lispro and correction factor sliding scale. 4.Tobacco dependence ?Patient apparently chews tobacco was counseled on cessation 5. DVT prophylaxis ?Low risk did encourage early ambulation Charges/Coding Visit Charges Inpatient E&M: 21272 Subs Hosp L3
--- NOTE | 2021-03-05 14:55 | CT_ITS ---
STUDY: CT FACIAL BONES WITH CONTRAST REASON FOR EXAM: Male, 26 years old. Facial abscess RADIATION DOSAGE (If Supplied By Facility): CTDIvol = ( 29.38 ) mGy, DLP = ( 1153.68 ) mGycm TECHNIQUE: The patient was scanned in a multi detector CT scanner. Transaxial imaging was performed following the intravenous administration of IV 100mL Isovue-300. Sagittal and coronal images were reconstructed. Individualized dose optimization techniques were used for this CT. COMPARISON: None. FINDINGS: Diffuse thickening overlying the left maxillary and facial region with diffuse skin thickening and increased markings in the subcutaneous fat. No focal fluid or abscess collection is seen. There is a 3 cm x 1 cm linear area of increased density with tiny air bubbles overlying the mid body of the right mandible. This may represent blood. Clinical correlation is recommended. There is no evidence of underlying bony fracture. Normal orbital espinosa and orbital contents. Normal nasal bones and anterior nasal spine. Normal facial bones. There is no demonstrated fracture. Mucosal thickening of the left maxillary sinus. CT/Sinus/Facial Bone WITH Contras IMPRESSION: Findings suggest encephalitis overlying the left maxillary region as well as focal area of increased density overlying the body of the right mandible. Focal area of bleeding should be ruled out. Electronically Signed: David Babin MD at 15:18 EDT , Service support ,
[2021-03-05 15:46] LABS: Bedside Glucose 192 mg/dL (70-110)
[2021-03-05 15:54] LABS: Amphetamine Urine VISTA NEGATIVE (<1000 ng/mL); Barbiturate Urine VISTA NEGATIVE (< 200 ng/mL); Benzodiazepine Urine VISTA NEGATIVE (< 200 ng/mL); Cocaine Urine VISTA NEGATIVE (< 300 ng/mL); Ecstacy Urine VISTA NEGATIVE (< 500 ng/mL); Methadone Urine VISTA NEGATIVE (< 300 ng/mL); PCP Urine VISTA NEGATIVE (< 25 ng/mL); THC Urine VISTA NEGATIVE (< 50 ng/mL); Vista UDS pH Range 6
--- NOTE | 2021-03-05 16:01 | PCM.RX.CS ---
Consult Pharmacy has been consulted to manage selected antiobiotic: Vancomycin Type of Consult: New start Suspected Infection: Sepsis, Skin/Soft tissue Labs: Sodium 134 mmol/L (136-145) L 03/05/21 12:15 Potassium 4.0 mmol/L (3.5-5.1) 03/05/21 12:15 Chloride 98 mmol/L (98-107) 03/05/21 12:15 Carbon Dioxide 21.0 mmol/L (21.0-32.0) 03/05/21 12:15 Anion Gap 15 (5-15) 03/05/21 12:15 BUN 14 mg/dL (7-18) 03/05/21 12:15 Creatinine 1.17 mg/dL (0.70-1.30) 03/05/21 12:15 Est GFR (MDRD) Af Amer 99 mL/min (>60) 03/05/21 12:15 Est GFR (MDRD) Non-Af 81 mL/min (>60) 03/05/21 12:15 BUN/Creatinine Ratio 12.0 RATIO (10-20) 03/05/21 12:15 Glucose 362 mg/dL (74-106) H 03/05/21 12:15 Goal Trough: 15-20 mcg/mL Pharmacy Plan for Drug Dosing: NEW START IV VANCOMYCIN Consulting Physician: Dr. Cruz Indication: SSTI/Sepsis Goal Trough: 15-20 SrCr: 1.17 CrCl: 94 mL/min Comments:1750mg IV x1 in ED 03/05/21 @1444 Vancomcyin Dose: 1250mg IV q12hr to start 03/06/21 @0200 Pending Level: 03/07/21 @0130, prior to 4th total dose per protocol. Service will continue to monitor and adjust dosing as required.
[2021-03-05 16:25] LABS: Reflex Lactate? Y
[2021-03-05] MEDS: oxyCODONE 5 MG Tablet PO ×2 (16:38→20:57)
[2021-03-05] MEDS: 0.9% Normal Saline 1,000 ML 999 ML IV (16:45)
[2021-03-05] MEDS: Insulin Lispro 100 UNIT/ML INSULN.PEN SC ×2 (16:46→21:10)
[2021-03-05] MEDS: Insulin Lispro 100 UNIT/ML INSULN.PEN 15 UNIT SC (16:47)
[2021-03-05] MEDS: 0.9% Normal Saline 1,000 ML 250 ML IV ×2 (17:45→20:15)
[2021-03-05 19:11] LABS: Lactic Acid 3.1 mmol/L (0.4-1.9)
[2021-03-05 19:31] LABS: M R Staph aureus DNA By PCR Negative (Negative); Probe Check PASS; Specimen Processing Control PASS
[2021-03-05 21:21] LABS: Bedside Glucose 209 mg/dL (70-110)
[2021-03-06] VITALS (17 sets, daily range): BP systolic 120–154; BP diastolic 72–100; PULSE 97–122; RESP 14–20; TEMP 36.8–37.1; O2SAT 93–99
[2021-03-06] MEDS: oxyCODONE 5 MG Tablet PO ×2 (01:12→11:47)
[2021-03-06] MEDS: 0.9% Normal Saline 1,000 ML 250 ML IV ×3 (01:18→11:49)
[2021-03-06 05:22] LABS: Absolute Lymphocyte Count 3.63 X10^3/uL (0.83-4.51); Absolute Neutrophil Count 10.3 X10^3/uL (2.0-7.7); Basophil# 0.06 X10^3/uL; Basophil% 0.4 % (0-1); Eosinophil# 0.61 X10^3/uL; Eosinophils% 3.8 % (0-5); Hematocrit 42.1 % (40-54); Hemoglobin 13.3 g/dL (13.0-16.5); Lymphocyte # 3.63 X10^3/ul (0.83-4.51); Lymphocyte % 22.8 % (19-41); Mean Corp Hgb Conc 31.6 g/dL (32-36); Mean Corpuscular Hgb 25.8 pg (27.0-32.0); Mean Corpuscular Volume 81.6 fL (80-94); Mean Platelet Vol. 10.6 fl (6.2-12.0); Monocyte% 7.5 % (0-10); NRBC Flagged by Analyzer 0 % (0-5); Neutrophil # 10.32 X10^3/uL (2.7-7.7); Neutrophil % 64.9 % (47-70); Platelet Count 275 K/mm3 (150-450); RBC Distribution Width CV 13.5 % (11.6-14.6); RBC Distribution Width SD 39.6 fl (35.1-43.9); Red Blood Count 5.16 M/mm3 (4.6-6.2); White Blood Count 15.9 K/mm3 (4.4-11.0)
--- NOTE | 2021-03-06 05:34 | CON.PCM.CC_ITS ---
Assessment & Plan Assessment/Plan (1) Septic shock: PLAN: RECOMMENDATIONS: 1. Continue antimicrobials. 2. Okay to discontinue fluids and encourage p.o. intake. 3. Continue local wound care. 4. Continue insulin per home regimen. 5. The patient is medically stable for transfer out of the intensive care unit. IMPRESSIONS: 1. Septic shock (by lactate criteria) The patient presented to the hospital with a small skin defect over his left cheek with surrounding erythema and mild induration. The patient did receive supplemental IV fluid hydration and broad-spectrum antimicrobials after meeting septic shock criteria based upon his elevated lactate. Nevertheless, the patient has remained hemodynamically stable overnight. Plan to continue local wound care and antimicrobials as ordered. 2. History of diabetes mellitus/smokeless tobacco dependency/depression Complicates care, management, recovery and prognosis. Continue home medications as indicated. This note was generated with Dah[employer] software. It may contain incorrect words, spelling, and punctuation that were not noted in checking the note before signing. HPI Consult Data Date of Consult: 03/06/21 HPI Narrative Reason for Consultation: Septic shock HPI Narrative: The patient is a 26-year-old male, with a history as outlined below, who presented to the emergency department on March 05 with complaints of left facial pain and swelling. The patient reported that he was recently weed eating a horse mesh cutter and may have scratched his face or been bit by a spider, causing the injury. He denies any dental pain or issues swallowing. He denies any shortness of breath, chest pain, abdominal pain, nausea, vomiting or diarrhea. On presentation to the emergency department, the patient was noted to be afebrile and hemodynamically stable. He was, nevertheless tachycardic with a heart rate in the 140s. The patient was maintaining appropriate oxygen saturati ons on room air. Laboratory evaluation revealed a white blood cell count of 15,000. Chemistry profile was notable for a sodium of 134 and creatinine of 1.17. Glucose was elevated to 362. Lactate was elevated to 6.7. AST and ALT were within normal limits. Alkaline phosphatase was increased to 189. Small serum acetone level was noted. Toxicology screen was negative. Facial CT was obtained and revealed findings concerning for cellulitis overlying the left maxillary region. The patient received supplemental IV fluid hydration along with broad-spectrum antimicrobials. He was subsequently admitted to the medical intensive care unit for further management. [facility] Medical History (Updated 03/05/21 @ 15:51 by Beth Jimenes) Anxiety Depression H/O fracture of skull Type 1 diabetes mellitus Home Medications ibuprofen 600 mg PO Q6H PRN 11/25/20 [History Last Taken 03/04/21] ferrous sulfate [FeroSul] 325 mg PO BREAKFAST 03/05/21 [History Last Taken 03/04/21] insulin lispro 30 unit SQ TIDCM 03/05/21 [History Last Taken 03/04/21] sertraline 100 mg PO DAILY 03/05/21 [History Last Taken 03/04/21] Allergy/AdvReac Type Severity Reaction Status Date / Time gluten AdvReac Nausea/Vom/ Verified 03/05/21 11:28 Diarrhea wheat AdvReac Nausea Verified 03/05/21 11:28 Family History (Updated 03/05/21 @ 14:[address] Richard Cruz MD) Father Diabetes Surgical History (Updated 03/05/21 @ 15:42 by Beth Jimenes) H/O skin graft Social History (Updated 03/05/21 @ 15:35 by Beth Jimenes) household members: family Smoking Status: Current every day smoker tobacco type: cigarettes and cigars Smokeless tobacco user: chewing tobacco second hand exposure: Yes alcohol intake: never substance use type: does not use ROS Constitutional Constitutional: Denies chills, fever(s) or headache(s) Eyes Eyes: Denies blurry vision or change in vision ENT HEENT: Denies dizziness, headache(s) or loss taste/smell Cardiovascular Cardiovascular: Denies chest pain, dizziness, dyspnea or edema Respiratory/Chest Respiratory/Chest: Denies chest tightness, cough or dyspnea Gastrointestinal Gastrointestinal: Denies abdominal pain, diarrhea, nausea or vomiting Genitourinary Genitourinary: Denies difficulty urinating or dysuria Musculoskeletal Musculoskeletal: Denies arthralgias, back pain or joint pain Integumentary Integumentary: Reports rash Neurologic Neurologic: Denies abnormal gait or abnormal speech Psychiatric Psychiatric: Denies anxiety or depression Endocrine Endocrinology: Denies fatigue, polydipsia or polyuria Hematologic/Lymphatic Hematologic/Lymphatic: Denies easy bleeding or easy bruising Physical Exam Const alert, oriented x3 and no apparent distress Constitutional Narrative: A bit unkempt in appearance General Appearance: cooperative HEENT normocephalic, head/scalp atraumatic and moist oral mucous membranes Eyes PERRL, EOMs intact bilaterally and conjunctivae normal Neck supple General: trachea midline Resp normal respiratory effort Auscultation: Negative for rales, rhonchi or wheezes Cardio S1 normal heart sound and S2 normal heart sound Rate: tachycardic Heart Sounds: Negative for murmur GI normal to inspection, nondistended, normoactive bowel sounds Extremity no clubbing, cyanosis or edema Skin Skin Narrative: Focal skin defect over left cheek with surrounding erythema and mild induration Neuro CN's II-XII intact bilaterally, moves all extremities and no focal motor deficits Psych Mood & Affect: flat affect Lab / Micro Data Result Diagrams: 03/06/21 05:15 03/06/21 05:15 Labs: Laboratory Results - last 24 hr 03/05/21 11:52: POC Glucose 423 H 03/05/21 12:15: WBC 14.7 H, RBC 5.30, Hgb 13.7, Hct 43.0, MCV 81.1, MCH 25.8 L, MCHC 31.9 L, RDW Std Deviation 39.3, RDW Coeff of Alec 13.5, Plt Count 309, MPV 10.8, Immature Gran % (Auto) 0.200, Neut % (Auto) 67.0, Lymph % (Auto) 23.4, [place] % (Auto) 6.3, Eos % (Auto) 2.7, Baso % (Auto) 0.4, Absolute Neuts (auto) 9.8 H, Absolute Lymphs (auto) 3.44, Nucleated RBC % 0 03/05/21 12:15: Sodium 134 L, Potassium 4.0, Chloride 98, Carbon Dioxide 21.0, Anion Gap 15, BUN 14, Creatinine 1.17, Estim Creat Clear Calc 93.36, Est GFR (MDRD) Af Amer 99, Est GFR (MDRD) Non-Af 81, BUN/Creatinine Ratio 12.0, Glucose 362 H, Calcium 8.1 L, Total Bilirubin 0.40, AST 19, ALT 38, Alkaline Phosphatase 189 H, Total Protein 6.5, Albumin 2.9 L, Globulin 3.6, Albumin/Globulin Ratio 0.8 L 03/05/21 12:15: Ethyl Alcohol < 3.0 03/05/21 12:15: Lactic Acid 6.7 H* 03/05/21 12:15: Acetone Level SMALL H 03/05/21 15:20: Urine Opiates Screen NEGATIVE, Urine Methadone Screen NEGATIVE, Ur Barbiturates Screen NEGATIVE, Ur Phencyclidine Scrn NEGATIVE, Ur Amphetamines Screen NEGATIVE, U Methamphetamin-MDMA NEGATIVE, U Benzodiazepines Scrn NEGATIVE, Urine Cocaine Screen NEGATIVE, U Cannabinoids Screen NEGATIVE, Ur Drug Screen Comment 03/05/21 15:37: POC Glucose 192 H 03/05/21 17:50: Lactic Acid 3.1 H* 03/05/21 18:10: MRSA (PCR) Negative 03/05/21 21:04: POC Glucose 209 H 03/06/21 05:15: WBC 15.9 H, RBC 5.16, Hgb 13.3, Hct 42.1, MCV 81.6, MCH 25.8 L, MCHC 31.6 L, RDW Std Deviation 39.6, RDW Coeff of Alec 13.5, Plt Count 275, MPV 10.6, Immature Gran % (Auto) 0.600, Neut % (Auto) 64.9, Lymph % (Auto) 22.8, [place] % (Auto) 7.5, Eos % (Auto) 3.8, Baso % (Auto) 0.4, Absolute Neuts (auto) 10.3 H, Absolute Lymphs (auto) 3.63, Nucleated RBC % 0 ABG Data ABG results: ABG 03/05/21 14:04 Specimen Type JAIDEN VBG pH 7.46 H VBG pO2 75 H VBG HCO3 25 VBG Total CO2 26 VBG O2 Sat (Calc) 96 H VBG Base Excess 1 POC Mix VBG pCO2 Pt Tmp 34.8 L Radiology Impression Facial/Sinus 03/05/21 14:55 IMPRESSION: Findings suggest encephalitis overlying the left maxillary region as well as focal area of increased density overlying the body of the right mandible. Focal area of bleeding should be ruled out. Electronically Signed: David Babin MD at 15:18 EDT , Service support , Charges/Coding Visit Charges Inpatient E&M: 98784 Init Hosp L3
[2021-03-06 05:56] LABS: Anion Gap 4 (5-15); BUN 8 mg/dL (7-18); BUN/Creat Ratio 15.1 RATIO (10-20); Calcium,Total 7.9 mg/dL (8.5-10.1); Chloride 105 mmol/L (98-107); Creatinine, Serum 0.53 mg/dL (0.70-1.30); EST Glomerular Filtration Rate 203 mL/min (>60); Est Glom Filt Rate - Afr Amer 245 mL/min (>60); Estimated Creatinine Clearance 209.75 ml/min; Glucose 108 mg/dL (74-106); Potassium 3.7 mmol/L (3.5-5.1); Sodium Level 137 mmol/L (136-145)
--- NOTE | 2021-03-06 07:14 | PCM.PN.HOSP ---
Subjective Subjective Patient seen still has significant induration daniel on broad-spectrum antibiotic therapy. CT of the face and sinuses reviewed Objective Data Objective Data Vital Signs: Vital Signs Temp Pulse Resp BP Pulse Ox 98.4 F 102 H 16 147/93 H 96 03/06/21 07:00 03/06/21 07:00 03/06/21 07:00 03/06/21 07:00 03/06/21 07:00 Oxygen Delivery Method Room Air Weight: 69 kg Body Mass Index (BMI) 20.7 Intake & Output: Intake and Output for Last 24 Hours 03/04/21 03/05/21 03/06/21 23:59 23:59 23:59 Intake Total 6142 / 6342 2975 / 2975 Output Total 1000 / 1600 2600 / 2600 Balance 5142 / 4742 375 / 375 Lab / Micro Data Result Diagrams: 03/06/21 05:15 03/06/21 05:15 Labs: Laboratory Results - last 24 hr 03/05/21 11:52: POC Glucose 423 H 03/05/21 12:15: WBC 14.7 H, RBC 5.30, Hgb 13.7, Hct 43.0, MCV 81.1, MCH 25.8 L, MCHC 31.9 L, RDW Std Deviation 39.3, RDW Coeff of Alec 13.5, Plt Count 309, MPV 10.8, Immature Gran % (Auto) 0.200, Neut % (Auto) 67.0, Lymph % (Auto) 23.4, [place] % (Auto) 6.3, Eos % (Auto) 2.7, Baso % (Auto) 0.4, Absolute Neuts (auto) 9.8 H, Absolute Lymphs (auto) 3.44, Nucleated RBC % 0 03/05/21 12:15: Sodium 134 L, Potassium 4.0, Chloride 98, Carbon Dioxide 21.0, Anion Gap 15, BUN 14, Creatinine 1.17, Estim Creat Clear Calc 93.36, Est GFR (MDRD) Af Amer 99, Est GFR (MDRD) Non-Af 81, BUN/Creatinine Ratio 12.0, Glucose 362 H, Calcium 8.1 L, Total Bilirubin 0.40, AST 19, ALT 38, Alkaline Phosphatase 189 H, Total Protein 6.5, Albumin 2.9 L, Globulin 3.6, Albumin/Globulin Ratio 0.8 L 07/28/21 12:15: Ethyl Alcohol < 3.0 03/05/21 12:15: Lactic Acid 6.7 H* 03/05/21 12:15: Acetone Level SMALL H 03/05/21 15:20: Urine Opiates Screen NEGATIVE, Urine Methadone Screen NEGATIVE, Ur Barbiturates Screen NEGATIVE, Ur Phencyclidine Scrn NEGATIVE, Ur Amphetamines Screen NEGATIVE, U Methamphetamin-MDMA NEGATIVE, U Benzodiazepines Scrn NEGATIVE, Urine Cocaine Screen NEGATIVE, U Cannabinoids Screen NEGATIVE, Ur Drug Screen Comment 03/05/21 15:37: POC Glucose 192 H 03/05/21 17:50: Lactic Acid 3.1 H* 03/05/21 18:10: MRSA (PCR) Negative 03/05/21 21:04: POC Glucose 209 H 03/06/21 05:15: WBC 15.9 H, RBC 5.16, Hgb 13.3, Hct 42.1, MCV 81.6, MCH 25.8 L, MCHC 31.6 L, RDW Std Deviation 39.6, RDW Coeff of Alec 13.5, Plt Count 275, MPV 10.6, Immature Gran % (Auto) 0.600, Neut % (Auto) 64.9, Lymph % (Auto) 22.8, [place] % (Auto) 7.5, Eos % (Auto) 3.8, Baso % (Auto) 0.4, Absolute Neuts (auto) 10.3 H, Absolute Lymphs (auto) 3.63, Nucleated RBC % 0 03/06/21 05:15: Sodium 137, Potassium 3.7, Chloride 105, Carbon Dioxide 28.0, Anion Gap 4 L, BUN 8, Creatinine 0.53 L, Estim Creat Clear Calc 209.75, Est GFR (MDRD) Af Amer 245, Est GFR (MDRD) Non-Af 203, BUN/Creatinine Ratio 15.1, Glucose 108 H, Calcium 7.9 L ABG Data ABG results: ABG 03/05/21 14:04 Specimen Type JAIDEN VBG pH 7.46 H VBG pO2 75 H VBG HCO3 25 VBG Total CO2 26 VBG O2 Sat (Calc) 96 H VBG Base Excess 1 POC Mix VBG pCO2 Pt Tmp 34.8 L Radiography Diagnostic Testing: Radiology Impression Facial/Sinus 03/05/21 14:55 IMPRESSION: Findings suggest encephalitis overlying the left maxillary region as well as focal area of increased density overlying the body of the right mandible. Focal area of bleeding should be ruled out. Electronically Signed: David Babin MD at 15:18 EDT , Service support , Physical Exam Narrative GENERAL: cooperative HEENT:An area of induration over the left masseter EYES; Anicteric, Normal Conjunctiva NECK; supple, normal thyroid, RESPIRATORY: Diminished to auscultation CARDIOVASCULAR: Regular S1 S2, GI: soft, normoactive bowel sounds, : No Renal angle tenderness; EXTREMITIES: No edema, no clubbing, MUSCULOSKELETAL: no muscle waisting NEURO: Awake; no lateralizing signs. SKIN: As described above PSYCH; Flat affect Assessment & Plan Assessment/Plan (1) Septic shock: (2) Cellulitis diffuse, face: (3) DM type 1 (diabetes mellitus, type 1): QUALIFIERS: Diabetes mellitus complication detail: with unspecified neuropathy Diabetes mellitus complication status: with neurologic complications Qualified Code(s): E10.40 - Type 1 diabetes mellitus with diabetic neuropathy, unspecified PLAN: Patient is a 26-year-old gentleman with history of diabetes mellitus type 1 presenting with left facial swelling 1.Septic shock ?This is evidenced by patient elevated lactic acid level of 6 with a source of infection the left facial cellulitis. Patient has been admitted to the intensive care unit management protocol regarding IV fluid resuscitation, broad-spectrum antibiotic therapy as well as cultures been sent. As part of patient's evaluation ordered CT of the face and sinus with contrast ?03/06/2021; results of CT as above. Patient remains on broad-spectrum antibiotic therapy. Consultation was placed to both infectious disease as well as weight and test bar clerk. 2. Left facial cellulitis ?Patient presented with septic shock management as discussed above 3. Diabetes mellitus type 1 ?Uncontrolled. Held patient home regimen patient was placed on scheduled long-acting insulin Lantus 25 mg twice daily in addition to preprandial short-acting insulin 15 units of lispro and correction factor sliding scale. ?02/25/2019 1; patient blood glucose level still not well controlled subsequently adjusted insulin regimen 4.Tobacco dependence ?Patient apparently chews tobacco was counseled on cessation 5. DVT prophylaxis ?Low risk did encourage early ambulation ?6. Hypocalcemia -plan is to replace via oral route Charges/Coding Visit Charges Inpatient E&M: 15470 [facility] Hosp L3
[2021-03-06] MEDS: Ferrous Sulfate 325 MG Tablet PO (08:36)
[2021-03-06] MEDS: Sertraline 100 MG Tablet PO (08:36)
[2021-03-06] MEDS: Insulin Lispro 100 UNIT/ML INSULN.PEN 15 UNIT SC ×3 (08:38→16:51)
--- NOTE | 2021-03-06 09:08 | PCM.RX.CS ---
Consult Pharmacy has been consulted to manage selected antiobiotic: Vancomycin Type of Consult: Follow-up Labs: Sodium 137 mmol/L (136-145) 03/06/21 05:15 Potassium 3.7 mmol/L (3.5-5.1) 03/06/21 05:15 Chloride 105 mmol/L (98-107) 03/06/21 05:15 Carbon Dioxide 28.0 mmol/L (21.0-32.0) 03/06/21 05:15 Anion Gap 4 (5-15) L 03/06/21 05:15 BUN 8 mg/dL (7-18) 03/06/21 05:15 Creatinine 0.53 mg/dL (0.70-1.30) L 03/06/21 05:15 Est GFR (MDRD) Af Amer 245 mL/min (>60) 03/06/21 05:15 Est GFR (MDRD) Non-Af 203 mL/min (>60) 03/06/21 05:15 BUN/Creatinine Ratio 15.1 RATIO (10-20) 03/06/21 05:15 Glucose 108 mg/dL (74-106) H 03/06/21 05:15 Goal Trough: 15-20 mcg/mL Pharmacy Plan for Drug Dosing: DAILY ASSESSMENT Current Vancomcyin Dose: 1250MG IV Q12H Number of Doses Received: 2 (INITIAL 1750MG + 1250MG SCHEDULED DOSE Current Renal Function: 0.53 Renal Function Trend: SIGNIFICANT IMPROVEMENT Lab/Micro:PENDING Any Change in Vanc Plan: Patient with significant improvement in renal function. Will adjust dose to 750mg IV Q8h per vancomycin protocol. Pending Level: 03/07/21 @0530 (Prior to 3rd dose of new regimen) Pharmacy Service will continue to monitor and adjust dosing as required.
--- NOTE | 2021-03-06 10:15 | CASEMGMT ---
KEN KAHN Face to Face with patient for initial transition planning/care coordination assessment. RN CRISS introduced self and role at [facility]. Patient lying in bed, alert and oriented. Patient willing to participate in assessment and is able to answer all questions appropriately. Care providers, pharmacy, and demographics verified. Patient wishes to discharge home, denies need for home health at this time. Patient states he has no further needs or concerns at this time. CM to follow for discharge planning needs that may arise. PCP: Sadie Specialists: none, information given to patient regarding [facility] Preferred Pharmacy: [facility] Insurance: [place] Prescription Benefit: yes Living Will/HPOA: none LNOK: father Living Arrangements: Patient lives with father in a mobile home. Patient states he is independent Transportation: father DME/HHC: Patient states he has glucometer, testing supplies, insulin, and needles at home. Patient denies further needs. Disposition Plan: Patient to discharge home with family support and follow-up plans in place. Beth MANTILLA, RN, CM
[2021-03-06] MEDS: Insulin Lispro 100 UNIT/ML INSULN.PEN SC ×3 (11:22→21:15)
[2021-03-06 11:30] LABS: Bedside Glucose 219 mg/dL (70-110)
--- NOTE | 2021-03-06 14:16 | PCM.CONS.GEN ---
Assessment & Plan Assessment/Plan (1) Type I diabetes mellitus, uncontrolled: (2) Cellulitis diffuse, face: PLAN: L face purulent cellulitis, no current drainage. Improving. On vanc. Will add cefazolin for better mssa/strep coverage. Plan on po abx if he continues to improve. Will follow, thank you, d/w Dr. Cruz. Encouraged pt to get covid vaccine. (3) Severe sepsis: HPI Consult Data Date of Consult: 03/06/21 HPI Narrative HPI Narrative: UNA DURON, is a 26 M who presented yesterday with sx starting 03/02 with progressive pain, redness, swelling on L cheek. Had been using weedwhipper, not sure if he got a cut or bite. No fever or chills. Was able to express some pus. Came to ED, admitted on vanc after dose of zosyn. Feeling better today. Not covid vaccinated. Full ROS performed and neg except as noted above. [facility] Medical History Anxiety Depression H/O fracture of skull Type 1 diabetes mellitus Home Medications ibuprofen 600 mg PO Q6H PRN 11/25/20 [History Last Taken 03/04/21] ferrous sulfate [FeroSul] 325 mg PO BREAKFAST 03/05/21 [History Last Taken 03/04/21] insulin lispro 30 unit SQ TIDCM 03/05/21 [History Last Taken 03/04/21] sertraline 100 mg PO DAILY 03/05/21 [History Last Taken 03/04/21] Allergy/AdvReac Type Severity Reaction Status Date / Time gluten AdvReac Nausea/Vom/ Verified 03/05/21 11:28 Diarrhea wheat AdvReac Nausea Verified 03/05/21 11:28 Family History (Updated 03/05/21 @ 14:[address] Richard Cruz MD) Father Diabetes Surgical History (Updated 03/05/21 @ 15:42 by Beth Jimenes) H/O skin graft Social History (Updated 03/05/21 @ 15:35 by Beth Jimenes) household members: family Smoking Status: Current every day smoker tobacco type: cigarettes and cigars Smokeless tobacco user: chewing tobacco second hand exposure: Yes alcohol intake: never substance use type: does not use Physical Exam Const alert, oriented x3 and no apparent distress General Appearance: cooperative Exam Limitations: no limitations HEENT head/scalp atraumatic Eyes PERRL and EOMs intact bilaterally Neck supple and No nodes Resp normal air movement and clear to auscultation bilaterally Cardio regular rate and regular rhythm GI normal to inspection, nondistended, normoactive bowel sounds Extremity no clubbing, cyanosis or edema Skin Skin Narrative: L cheek area of pain, redness, induration Neuro CN's II-XII intact bilaterally Medical Records Data Medical Nutrition Assessment Dietitian: Nutrition Therapy Diagnosis Start: 03/06/21 11:14 Freq: Status: Active Protocol: Document 03/06/21 11:14 AG (Rec: 03/06/21 11:14 [id number]) Nutrition Malnutrition Evidence of Malnutrition Exists No Clinical Problem Altered Nutrient-Related Laboratory Values Etiology r/t acute illness and endocrine dysfunction Signs/Symptoms as evidenced by glucose 362, POC glucose 423 and 192. Status Active Problem Recommendation Dietitian Recommendations/Changes Continue consistent carbohydrate diet, 2200 calories/day Lab / Micro Data Result Diagrams: 03/06/21 05:15 03/06/21 05:15 Labs: Laboratory Results - last 24 hr 03/05/21 15:20: Urine Opiates Screen NEGATIVE, Urine Methadone Screen NEGATIVE, Ur Barbiturates Screen NEGATIVE, Ur Phencyclidine Scrn NEGATIVE, Ur Amphetamines Screen NEGATIVE, U Methamphetamin-MDMA NEGATIVE, U Benzodiazepines Scrn NEGATIVE, Urine Cocaine Screen NEGATIVE, U Cannabinoids Screen NEGATIVE, Ur Drug Screen Comment 03/05/21 15:37: POC Glucose 192 H 03/05/21 17:50: Lactic Acid 3.1 H* 03/05/21 18:10: MRSA (PCR) Negative 03/05/21 21:04: POC Glucose 209 H 03/06/21 05:15: WBC 15.9 H, RBC 5.16, Hgb 13.3, Hct 42.1, MCV 81.6, MCH 25.8 L, MCHC 31.6 L, RDW Std Deviation 39.6, RDW Coeff of Alec 13.5, Plt Count 275, MPV 10.6, Immature Gran % (Auto) 0.600, Neut % (Auto) 64.9, Lymph % (Auto) 22.8, [place] % (Auto) 7.5, Eos % (Auto) 3.8, Baso % (Auto) 0.4, Absolute Neuts (auto) 10.3 H, Absolute Lymphs (auto) 3.63, Nucleated RBC % 0 03/06/21 05:15: Sodium 137, Potassium 3.7, Chloride 105, Carbon Dioxide 28.0, Anion Gap 4 L, BUN 8, Creatinine 0.53 L, Estim Creat Clear Calc 209.75, Est GFR (MDRD) Af Amer 245, Est GFR (MDRD) Non-Af 203, BUN/Creatinine Ratio 15.1, Glucose 108 H, Calcium 7.9 L 03/06/21 11:21: POC Glucose 219 H Radiology Impression Facial/Sinus 03/05/21 14:55 IMPRESSION: Findings suggest encephalitis overlying the left maxillary region as well as focal area of increased density overlying the body of the right mandible. Focal area of bleeding should be ruled out. Electronically Signed: David Babin MD at 15:18 EDT , Service support ,
[2021-03-06 16:50] LABS: Bedside Glucose 221 mg/dL (70-110)
[2021-03-06 21:11] LABS: Bedside Glucose 214 mg/dL (70-110)
[2021-03-06] MEDS: Cefazolin 2 GM in 0.9% Normal Saline 100 ML IV (22:31)
[2021-03-07 04:06] VITALS: BP 113/76; PULSE 95; RESP 18; TEMP 36.6; O2SAT 99
[2021-03-07 05:50] LABS: Absolute Lymphocyte Count 3.99 X10^3/uL (0.83-4.51); Absolute Neutrophil Count 6.3 X10^3/uL (2.0-7.7); Basophil# 0.04 X10^3/uL; Basophil% 0.3 % (0-1); Eosinophil# 0.48 X10^3/uL; Eosinophils% 4.1 % (0-5); Hematocrit 41.4 % (40-54); Hemoglobin 13.1 g/dL (13.0-16.5); Lymphocyte # 3.99 X10^3/ul (0.83-4.51); Mean Corp Hgb Conc 31.6 g/dL (32-36); Mean Corpuscular Hgb 25.9 pg (27.0-32.0); Mean Platelet Vol. 10.5 fl (6.2-12.0); Monocyte# 0.94 X10^3/uL; NRBC Flagged by Analyzer 0 % (0-5); Neutrophil # 6.26 X10^3/uL (2.7-7.7); Neutrophil % 53.3 % (47-70); Platelet Count 246 K/mm3 (150-450); RBC Distribution Width CV 13.7 % (11.6-14.6); RBC Distribution Width SD 40.6 fl (35.1-43.9); Red Blood Count 5.05 M/mm3 (4.6-6.2); White Blood Count 11.7 K/mm3 (4.4-11.0)
[2021-03-07 06:11] LABS: Anion Gap 6 (5-15); BUN 8 mg/dL (7-18); BUN/Creat Ratio 17.7 RATIO (10-20); Calcium,Total 8.2 mg/dL (8.5-10.1); Chloride 104 mmol/L (98-107); Creatinine, Serum 0.45 mg/dL (0.70-1.30); EST Glomerular Filtration Rate 244 mL/min (>60); Est Glom Filt Rate - Afr Amer 295 mL/min (>60); Estimated Creatinine Clearance 233.07 ml/min; Glucose 153 mg/dL (74-106); Potassium 3.8 mmol/L (3.5-5.1); Sodium Level 138 mmol/L (136-145)
[2021-03-07 06:29] LABS: Vancomycin, Trough Level 4.7 ug/mL (5.0-15.0)
[2021-03-07] MEDS: Cefazolin 2 GM in 0.9% Normal Saline 100 ML IV ×3 (07:08→23:23)
--- NOTE | 2021-03-07 07:16 | PCM.PN.INT ---
Assessment & Plan Assessment/Plan (1) Septic shock: PLAN: RECOMMENDATIONS: 1. Continue antimicrobials, per ID recommendations. 2. Continue local wound care. 3. Continue insulin per home regimen. 4. Will sign off from a pulmonary/critical care perspective. Please call with any additional questions. IMPRESSIONS: 1. Facial cellulitis The patient presented to the hospital with a small skin defect over his left cheek with surrounding erythema and mild induration. The patient did receive supplemental IV fluid hydration and broad-spectrum antimicrobials after meeting septic shock criteria based upon his elevated lactate. Nevertheless, the patient has remained hemodynamically stable overnight. Plan to continue local wound care and antimicrobials as ordered, per ID recommendations. 2. History of diabetes mellitus/smokeless tobacco dependency/depression Complicates care, management, recovery and prognosis. Continue home medications as indicated. This note was generated with [email or web address] dictation software. It may contain incorrect words, spelling, and punctuation that were not noted in checking the note before signing. Subjective Subjective The patient was seen and examined at the bedside this morning. Events from the last 24 hours have been reviewed. The patient is currently afebrile, hemodynamically stable and maintaining appropriate oxygen saturations on room air. Morning lab work was unremarkable. The patient remains on IV antibiotics. Objective Data Objective Data The patient's most recent lab work, culture data and imaging studies have all been personally reviewed. Blood cultures have demonstrated no growth to date. Vital Signs: Vital Signs Temp Pulse Resp BP Pulse Ox 97.8 F 95 18 113/76 99 03/07/21 04:06 03/07/21 04:06 03/07/21 04:06 03/07/21 04:06 03/07/21 04:06 Oxygen Delivery Method Room Air Weight: 65.1 kg Body Mass Index (BMI) 20.7 Intake & Output: Intake and Output for Last 24 Hours 03/05/21 03/06/21 03/07/21 23:59 23:59 23:59 Intake Total 6142 / 6342 5352.5 / 5752.5 1065 / 1065 Output Total 1000 / 1600 2875 / 2875 Balance 5142 / 4742 2477.5 / 2877.5 1065 / 1065 Medical Nutrition Assessment Dietitian: Nutrition Therapy Diagnosis Start: 03/06/21 11:14 Freq: Status: Active Protocol: Document 03/06/21 11:14 (Rec: 03/06/21 11:14 [id number]) Nutrition Malnutrition Evidence of Malnutrition Exists No Clinical Problem Altered Nutrient-Related Laboratory Values Etiology r/t acute illness and endocrine dysfunction Signs/Symptoms as evidenced by glucose 362, POC glucose 423 and 192. Status Active Problem Recommendation Dietitian Recommendations/Changes Continue consistent carbohydrate diet, 2200 calories/day Lab / Micro Data Attestation: I reviewed the patient's lab results. Result Diagrams: 03/07/21 05:45 03/07/21 05:45 Labs: Laboratory Results - last 24 hr 03/06/21 11:21: POC Glucose 219 H 03/06/21 16:47: POC Glucose 221 H 03/06/21 21:01: POC Glucose 214 H 03/07/21 05:45: WBC 11.7 H, RBC 5.05, Hgb 13.1, Hct 41.4, MCV 82.0, MCH 25.9 L, MCHC 31.6 L, RDW Std Deviation 40.6, RDW Coeff of Alec 13.7, Plt Count 246, MPV 10.5, Immature Gran % (Auto) 0.300, Neut % (Auto) 53.3, Lymph % (Auto) 34.0, Kingfisher % (Auto) 8.0, Eos % (Auto) 4.1, Baso % (Auto) 0.3, Absolute Neuts (auto) 6.3, Absolute Lymphs (auto) 3.99, Nucleated RBC % 0 03/07/21 05:45: Sodium 138, Potassium 3.8, Chloride 104, Carbon Dioxide 28.0, Anion Gap 6, BUN 8, Creatinine 0.45 L, Estim Creat Clear Calc 233.07, Est GFR (MDRD) Af Amer 295, Est GFR (MDRD) Non-Af 244, BUN/Creatinine Ratio 17.7, Glucose 153 H, Calcium 8.2 L 03/07/21 05:45: Vancomycin Trough 4.7 L Physical Exam Const alert, oriented x3 and no apparent distress Constitutional Narrative: A bit unkempt in appearance General Appearance: cooperative HEENT normocephalic, head/scalp atraumatic and moist oral mucous membranes Eyes PERRL, EOMs intact bilaterally and conjunctivae normal Neck supple General: trachea midline Resp normal respiratory effort Auscultation: Negative for rales, rhonchi or wheezes Cardio S1 normal heart sound and S2 normal heart sound Rate: tachycardic Heart Sounds: Negative for murmur GI normal to inspection, nondistended, normoactive bowel sounds Extremity no clubbing, cyanosis or edema Skin Skin Narrative: Focal skin defect over left cheek with surrounding erythema and mild induration Neuro CN's II-XII intact bilaterally, moves all extremities and no focal motor deficits Psych Mood & Affect: flat affect Charges/Coding Visit Charges Inpatient E&M: 70692 Subs Hosp L2
--- NOTE | 2021-03-07 07:20 | PCM.PN.HOSP ---
Subjective Subjective Patient seen still has significant induration involving the left side of the face. Also complains of extension of pain down the left side of his neck. WBC count is however trending. Cefazolin was added to patient's therapy by infectious disease the day prior Objective Data Objective Data Vital Signs: Vital Signs Temp Pulse Resp BP Pulse Ox 97.8 F 95 18 113/76 99 03/07/21 04:06 03/07/21 04:06 03/07/21 04:06 03/07/21 04:06 03/07/21 04:06 Oxygen Delivery Method Room Air Weight: 65.1 kg Body Mass Index (BMI) 20.7 Intake & Output: Intake and Output for Last 24 Hours 03/05/21 03/06/21 03/07/21 23:59 23:59 23:59 Intake Total 6142 / 6342 5352.5 / 5752.5 1065 / 1065 Output Total 1000 / 1600 2875 / 2875 Balance 5142 / 4742 2477.5 / 2877.5 1065 / 1065 Medical Nutrition Assessment Dietitian: Nutrition Therapy Diagnosis Start: 03/06/21 11:14 Freq: Status: Active Protocol: Document 03/06/21 11:14 AG (Rec: 03/06/21 11:14 [id number]) Nutrition Malnutrition Evidence of Malnutrition Exists No Clinical Problem Altered Nutrient-Related Laboratory Values Etiology r/t acute illness and endocrine dysfunction Signs/Symptoms as evidenced by glucose 362, POC glucose 423 and 192. Status Active Problem Recommendation Dietitian Recommendations/Changes Continue consistent carbohydrate diet, 2200 calories/day Lab / Micro Data Result Diagrams: 03/07/21 05:45 03/07/21 05:45 Labs: Laboratory Results - last 24 hr 03/06/21 11:21: POC Glucose 219 H 03/06/21 16:47: POC Glucose 221 H 03/06/21 21:01: POC Glucose 214 H 03/07/21 05:45: WBC 11.7 H, RBC 5.05, Hgb 13.1, Hct 41.4, MCV 82.0, MCH 25.9 L, MCHC 31.6 L, RDW Std Deviation 40.6, RDW Coeff of Alec 13.7, Plt Count 246, MPV 10.5, Immature Gran % (Auto) 0.300, Neut % (Auto) 53.3, Lymph % (Auto) 34.0, Antelope % (Auto) 8.0, Eos % (Auto) 4.1, Baso % (Auto) 0.3, Absolute Neuts (auto) 6.3, Absolute Lymphs (auto) 3.99, Nucleated RBC % 0 03/07/21 05:45: Sodium 138, Potassium 3.8, Chloride 104, Carbon Dioxide 28.0, Anion Gap 6, BUN 8, Creatinine 0.45 L, Estim Creat Clear Calc 233.07, Est GFR (MDRD) Af Amer 295, Est GFR (MDRD) Non-Af 244, BUN/Creatinine Ratio 17.7, Glucose 153 H, Calcium 8.2 L 03/07/21 05:45: Vancomycin Trough 4.7 L Physical Exam Narrative GENERAL: cooperative HEENT:An area of induration over the left masseter EYES; Anicteric, Normal Conjunctiva NECK; supple, normal thyroid, RESPIRATORY: Diminished to auscultation CARDIOVASCULAR: Regular S1 S2, GI: soft, normoactive bowel sounds, : No Renal angle tenderness; EXTREMITIES: No edema, no clubbing, MUSCULOSKELETAL: no muscle waisting NEURO: Awake; no lateralizing signs. SKIN: As described above PSYCH; Flat affect Assessment & Plan Assessment/Plan (1) Septic shock: (2) Cellulitis diffuse, face: (3) DM type 1 (diabetes mellitus, type 1): QUALIFIERS: Diabetes mellitus complication detail: with unspecified neuropathy Diabetes mellitus complication status: with neurologic complications Qualified Code(s): E10.40 - Type 1 diabetes mellitus with diabetic neuropathy, unspecified PLAN: Patient is a 26-year-old gentleman with history of diabetes mellitus type 1 presenting with left facial swelling 1.Septic shock ?This is evidenced by patient elevated lactic acid level of 6 with a source of infection the left facial cellulitis. Patient has been admitted to the intensive care unit management protocol regarding IV fluid resuscitation, broad-spectrum antibiotic therapy as well as cultures been sent. As part of patient's evaluation ordered CT of the face and sinus with contrast ?03/06/2021; results of CT as above. Patient remains on broad-spectrum antibiotic therapy. Consultation was placed to both infectious disease as well as head still operator. -03/07/2021;Patient seen still has significant induration involving the left side of the face. Also complains of extension of pain down the left side of his neck. WBC count is however trending. Cefazolin was added to patient's therapy by infectious disease the day prior 2. Left facial cellulitis ?Patient presented with septic shock management as discussed above 3. Diabetes mellitus type 1 ?Uncontrolled. Held patient home regimen patient was placed on scheduled long-acting insulin Lantus 25 mg twice daily in addition to preprandial short-acting insulin 15 units of lispro and correction factor sliding scale. ?02/25/2019 1; patient blood glucose level still not well controlled subsequently adjusted insulin regimen 4.Tobacco dependence ?Patient apparently chews tobacco was counseled on cessation 5. DVT prophylaxis ?Low risk did encourage early ambulation ?6. Hypocalcemia -plan is to replace via oral route Charges/Coding Visit Charges Inpatient E&M: 87546 Subs Hosp L2
[2021-03-07 07:30] VITALS: O2SAT 98
[2021-03-07 08:00] VITALS: PULSE 100
--- NOTE | 2021-03-07 08:04 | PCM.RX.CS ---
Consult Pharmacy has been consulted to manage selected antiobiotic: Vancomycin Type of Consult: Follow-up Suspected Infection: Skin/Soft tissue Labs: Sodium 138 mmol/L (136-145) 03/07/21 05:45 Potassium 3.8 mmol/L (3.5-5.1) 03/07/21 05:45 Chloride 104 mmol/L (98-107) 03/07/21 05:45 Carbon Dioxide 28.0 mmol/L (21.0-32.0) 03/07/21 05:45 Anion Gap 6 (5-15) 03/07/21 05:45 BUN 8 mg/dL (7-18) 03/07/21 05:45 Creatinine 0.45 mg/dL (0.70-1.30) L 03/07/21 05:45 Est GFR (MDRD) Af Amer 295 mL/min (>60) 03/07/21 05:45 Est GFR (MDRD) Non-Af 244 mL/min (>60) 03/07/21 05:45 BUN/Creatinine Ratio 17.7 RATIO (10-20) 03/07/21 05:45 Glucose 153 mg/dL (74-106) H 03/07/21 05:45 Vancomycin Trough 4.7 ug/mL (5.0-15.0) L 03/07/21 05:45 Goal Trough: 15-20 mcg/mL Pharmacy Plan for Drug Dosing: VANCOMYCIN LEVEL RECEIVED Current Vancomycin Dose: 750MG IV Q8h Number of Doses Received: 5 (ER dose 1750mg, 1st dose of old regimen (1250mg), and 3 doses of current regimen (750mg) Vancomycin Level: 4.7 Hours Since Last Dose: 8.5hr Renal Function: 0.45 Renal Function Trend: stable Lab/Micro: BCx Pending Vancomycin Plan/Comments: Patient's trough drawn was low at 4.7 (Goal 15-20). Will increase dose and start patient on 1250mg IV Q8h. Patient had morning dose already, will start new dose the next time vancomycin is due. Pending Level: 03/08/21 @1330, prior to 4th dose of new regimen. Pharmacy Service will continue to monitor and adjust dosing as required.
[2021-03-07] MEDS: Sertraline 100 MG Tablet PO (08:06)
[2021-03-07] MEDS: Insulin Lispro 100 UNIT/ML INSULN.PEN 15 UNIT SC ×3 (08:06→16:48)
[2021-03-07] MEDS: Insulin Lispro 100 UNIT/ML INSULN.PEN SC ×4 (08:06→21:22)
[2021-03-07] MEDS: Ferrous Sulfate 325 MG Tablet PO (08:06)
[2021-03-07 08:13] VITALS: BP 128/86; PULSE 100; RESP 18; TEMP 36.5; O2SAT 98
[2021-03-07 08:21] LABS: Bedside Glucose 181 mg/dL (70-110)
[2021-03-07] MEDS: 0.9% Saline Lock 10 ML Syringe IV ×2 (11:48→13:22)
[2021-03-07 12:05] LABS: Bedside Glucose 171 mg/dL (70-110)
[2021-03-07] MEDS: oxyCODONE 5 MG Tablet PO ×2 (13:26→17:51)
[2021-03-07 14:21] VITALS: BP 119/85; PULSE 119; RESP 18; TEMP 36.5; O2SAT 97
[2021-03-07 16:56] LABS: Bedside Glucose 176 mg/dL (70-110)
--- NOTE | 2021-03-07 17:14 | PCM.PN.ID ---
Physical Exam Narrative Feeling better, no drainage, no fever, face slightly less sore Const alert and no apparent distress General Appearance: cooperative Resp normal air movement and clear to auscultation bilaterally Cardio regular rate and regular rhythm GI normal to inspection, nondistended, normoactive bowel sounds Skin Skin Narrative: L cheek induration and redness ID ID: Route of nutrition/ use of supplements: [] Nutritional Intake: [] IV Site: [] [place] Catheter: [] Assessment & Plan Assessment/Plan (1) Type I diabetes mellitus, uncontrolled: (2) Cellulitis diffuse, face: PLAN: L face purulent cellulitis, no current drainage. Improving. On vanc, cefazolin. May need I&D if it comes to a head. Ok for discharge on po bactrim DS bid and keflex 500mg tid for 10 more days. Will follow (3) Severe sepsis:
[2021-03-07 20:49] VITALS: BP 118/83; PULSE 117; RESP 18; TEMP 37; O2SAT 98
[2021-03-07 21:30] LABS: Bedside Glucose 151 mg/dL (70-110)
[2021-03-08] MEDS: oxyCODONE 5 MG Tablet PO (00:25)
[2021-03-08 04:00] VITALS: BP 109/68; PULSE 103; RESP 16; TEMP 36.8; O2SAT 98
[2021-03-08] MEDS: Cefazolin 2 GM in 0.9% Normal Saline 100 ML IV (05:14)
--- NOTE | 2021-03-08 07:44 | PCM.DC.SUM ---
Providers Date of Admission: 03/05/21 Primary Care Physician: Deangelo Noel MD Consultations 03/05/21 15:30 Consult: Pediatric Care Coordinator / Pulmonary Medicine Routine Consulting Provider: Pulmonary Medicine briana Byhalia Reason for Consult: Septic shock EMERGENT Consult: No Notified: Yes Date Notified: 03/05/21 Time Notified: 15:35 Method of Notification: Text Method of Consult:: In-Person 03/06/21 07:13 Consult: Infectious Disease Routine Consulting Provider: Tirso Bailey Reason for Consult: sepsis, facial cellulitis EMERGENT Consult: No Notified: Yes Date Notified: 03/06/21 Time Notified: 08:18 Method of Notification: Text Reason For Visit: SEPTIC SHOCK, FACIAL CELLULITIS Diagnosis Discharge Diagnosis (1) Type I diabetes mellitus, uncontrolled: Status: Acute Code(s): E10.65 - Type 1 diabetes mellitus with hyperglycemia (2) Cellulitis diffuse, face: Status: Acute Code(s): L03.211 - Cellulitis of face (3) Severe sepsis: Status: Resolved Code(s): A41.9 - Sepsis, unspecified organism; R65.20 - Severe sepsis without septic shock Medications at Discharge Home Medications ibuprofen 600 mg PO Q6H PRN 11/25/20 ferrous sulfate [FeroSul] 325 mg PO BREAKFAST 03/05/21 insulin lispro 30 unit SQ TIDCM 03/05/21 sertraline 100 mg PO DAILY 03/05/21 cephalexin 500 mg PO TID #30 cap 03/08/21 sulfamethoxazole-trimethoprim [Bactrim DS] 1 tab PO BID #20 tab 03/08/21 Hospital Course Summary of Care Provided Minutes Spent on Discharge: 35 Hospital Course: Patient is a 26-year-old gentleman with history of diabetes mellitus type 1 presenting with left facial swelling 1.Septic shock ?This is evidenced by patient elevated lactic acid level of 6 with a source of infection the left facial cellulitis. Patient has been admitted to the intensive care unit management protocol regarding IV fluid resuscitation, broad-spectrum antibiotic therapy as well as cultures been sent. As part of patient's evaluation ordered CT of the face and sinus with contrast ?03/06/2021; results of CT as above. Patient remains on broad-spectrum antibiotic therapy. Consultation was placed to both infectious disease as well as air liaison and special staff. -03/07/2021;Patient seen still has significant induration involving the left side of the face. Also complains of extension of pain down the left side of his neck. WBC count is however trending. Cefazolin was added to patient's therapy by infectious disease the day prior -Patient was discharged home with a 10-day course of Keflex and Bactrim DS per recommendations from infectious disease 2. Left facial cellulitis ?Patient presented with septic shock management as discussed above 3. Diabetes mellitus type 1 ?Uncontrolled. Held patient home regimen patient was placed on scheduled long-acting insulin Lantus 25 mg twice daily in addition to preprandial short-acting insulin 15 units of lispro and correction factor sliding scale. ?02/25/2019 1; patient blood glucose level still not well controlled subsequently adjusted insulin regimen 4.Tobacco dependence ?Patient apparently chews tobacco was counseled on cessation 5. DVT prophylaxis ?Low risk did encourage early ambulation ?6. Hypocalcemia -plan is to replace via oral route Physical Exam Narrative GENERAL: cooperative HEENT:An area of induration over the left masseter EYES; Anicteric, Normal Conjunctiva NECK; supple, normal thyroid, RESPIRATORY: Diminished to auscultation CARDIOVASCULAR: Regular S1 S2, GI: soft, normoactive bowel sounds, : No Renal angle tenderness; EXTREMITIES: No edema, no clubbing, MUSCULOSKELETAL: no muscle waisting NEURO: Awake; no lateralizing signs. SKIN: As described above PSYCH; Flat affect Medical Records Data Medical Nutrition Assessment Dietitian: Nutrition Therapy Diagnosis Start: 03/06/21 11:14 Freq: Status: Active Protocol: Document 03/06/21 11:14 (Rec: 03/06/21 11:14 [id number]) Nutrition Malnutrition Evidence of Malnutrition Exists No Clinical Problem Altered Nutrient-Related Laboratory Values Etiology r/t acute illness and endocrine dysfunction Signs/Symptoms as evidenced by glucose 362, POC glucose 423 and 192. Status Active Problem Recommendation Dietitian Recommendations/Changes Continue consistent carbohydrate diet, 2200 calories/day Weight / BMI Weight Weight: 65.7 kg Body Mass Index (BMI) 20.7 ABG / Lab / Microbiology Data Result Diagrams: 03/07/21 05:45 03/07/21 05:45 Laboratory: Laboratory Results - last 24 hr 03/07/21 08:04: POC Glucose 181 H 03/07/21 11:45: POC Glucose 171 H 03/07/21 16:46: POC Glucose 176 H 03/07/21 21:21: POC Glucose 151 H Microbiology: Microbiology 03/05/21 13:31 Blood Culture (Wb) - Left Hand Blood Culture - Preliminary No growth in 48 hours. 03/05/21 13:42 Blood Culture (Wb) - Anticubital Left Blood Culture - Preliminary No growth in 48 hours. D/C Instructions Discharge Diet: 1800 Calorie Control Diet Discharge Activity: Return to Normal Activity Call your doctor if you observe: Fever of 101 or Higher, Shortness of breath, Fainting spells and Chest pain Meaningful Use Info Meaningful Use Diagnoses (Choose all that apply): None applicable Discharge Plan Admission Admit Date/Time: 03/05/21 14:33 Primary Reason for Your Visit: Facial cellulitis Attending Provider: Richard Cruz Primary Care Provider: Deangelo Noel Consulting Providers: Tirso Bailey ; Cliff Betts ; Alvin Pena ; Kary Hernandez [employer] Discharge Orders/Prescriptions Prescriptions: New sulfamethoxazole-trimethoprim [Bactrim DS] 800-160 mg tablet 1 tab PO BID Qty: 20 RF: 0 cephalexin 500 mg capsule 500 mg PO TID Qty: 30 RF: 0 Continued ibuprofen 600 MG tablet 600 mg PO Q6H PRN (Reason: Pain 1-10 Or Fever) RF: 0 ferrous sulfate [FeroSul] 325 mg (65 mg iron) tablet 325 mg PO BREAKFAST RF: 0 sertraline 100 mg tablet 100 mg PO DAILY RF: 0 insulin lispro 100 UNIT/ML insulin pen 30 unit SQ TIDCM RF: 0 Referrals / Follow Up: Deangelo Noel MD [Primary Care Provider] - Disposition Disposition (needs filled in before D/C Order can be placed): Home, Self Care Charges/Coding Visit Charges Inpatient E&M: 22660 Disch Hosp
[2021-03-08 07:57] VITALS: BP 109/67; PULSE 89; RESP 16; TEMP 36.7; O2SAT 100
[2021-03-08 08:03] LABS: Absolute Lymphocyte Count 3.65 X10^3/uL (0.83-4.51); Absolute Neutrophil Count 5.4 X10^3/uL (2.0-7.7); Basophil# 0.04 X10^3/uL; Basophil% 0.4 % (0-1); Eosinophil# 0.53 X10^3/uL; Hematocrit 43.2 % (40-54); Hemoglobin 13.2 g/dL (13.0-16.5); Lymphocyte # 3.65 X10^3/ul (0.83-4.51); Lymphocyte % 34.6 % (19-41); Mean Corp Hgb Conc 30.6 g/dL (32-36); Mean Corpuscular Hgb 25.8 pg (27.0-32.0); Mean Corpuscular Volume 84.5 fL (80-94); Mean Platelet Vol. 10.6 fl (6.2-12.0); Monocyte% 8.5 % (0-10); NRBC Flagged by Analyzer 0 % (0-5); Neutrophil # 5.38 X10^3/uL (2.7-7.7); Neutrophil % 51.1 % (47-70); Platelet Count 285 K/mm3 (150-450); RBC Distribution Width CV 13.8 % (11.6-14.6); RBC Distribution Width SD 42.8 fl (35.1-43.9); Red Blood Count 5.11 M/mm3 (4.6-6.2); White Blood Count 10.5 K/mm3 (4.4-11.0)
[2021-03-08] MEDS: Insulin Lispro 100 UNIT/ML INSULN.PEN SC ×2 (08:04→11:20)
[2021-03-08] MEDS: Insulin Lispro 100 UNIT/ML INSULN.PEN 15 UNIT SC ×2 (08:05→11:20)
[2021-03-08] MEDS: Sertraline 100 MG Tablet PO (08:06)
[2021-03-08] MEDS: Ferrous Sulfate 325 MG Tablet PO (08:06)
[2021-03-08 08:15] LABS: Anion Gap 4 (5-15); BUN 11 mg/dL (7-18); BUN/Creat Ratio 19.7 RATIO (10-20); Calcium,Total 8.2 mg/dL (8.5-10.1); Chloride 103 mmol/L (98-107); Creatinine, Serum 0.56 mg/dL (0.70-1.30); EST Glomerular Filtration Rate 192 mL/min (>60); Est Glom Filt Rate - Afr Amer 232 mL/min (>60); Estimated Creatinine Clearance 189.02 ml/min; Glucose 172 mg/dL (74-106); Potassium 4.1 mmol/L (3.5-5.1); Sodium Level 138 mmol/L (136-145)
[2021-03-08 08:16] LABS: Bedside Glucose 196 mg/dL (70-110)
[2021-03-08 11:21] LABS: Bedside Glucose 176 mg/dL (70-110)
[2021-03-08 13:23] VITALS: BP 104/77; PULSE 100; RESP 18; TEMP 37; O2SAT 100
--- NOTE | 2021-03-10 15:27 | CASEMGMT ---
RN CM Discharge Follow-up Phone Call: CHANDANA: 12 Strata: 3 Call Date: 03/10/21 Discharge Date: 03/08/21 Time of Call: 1525 Duration: 1 min Admitting Diagnosis: severe sepsis, facial cellulitis RN CM attempted to complete follow-up phone call. Patient number listed is wrong number.
== END 2021-03-08 13:23 | disposition home or self-care (01) | DRG 720 ==
LOC: ED 14:18 → ICU 14:39 → MS3 03-06 14:08
PROVIDERS: Admitting Provider Internal Medicine; Emergency Provider Emergency Medicine; PCP Family Medicine; Visit Provider Internal Medicine
DX: A41.9 Sepsis, unspecified organism (principal); L03.211 Cellulitis of face; R65.21 Severe sepsis with septic shock; E10.65 Type 1 diabetes mellitus with hyperglycemia; E10.40 Type 1 diabetes mellitus with diabetic neuropathy, unspecified; E83.51 Hypocalcemia; F17.210 Nicotine dependence, cigarettes, uncomplicated; F17.220 Nicotine dependence, chewing tobacco, uncomplicated; Z79.4 Long term (current) use of insulin; Z79.899 Other long term (current) drug therapy
CPT/HCPCS: 36415; 70487; 80048; 80053; 80202; 80307; 82009; 82077; 82803; 82962; 83605; 85025; 87040; 87641; 93005; 97802; 99251; 99284; 99406; J7030; J7040; J7050; Q9967; A4216; G0463; J0295

== ENCOUNTER 2021-09-18 09:40 | Emergency (ER) | payer MEDICAID, SELFPAY ==
[2021-09-18 09:40] VITALS: BP 144/104; PULSE 129; RESP 16; TEMP 36.3; O2SAT 100; BMI 19.5
--- NOTE | 2021-09-18 10:30 | RAD_ITS ---
STUDY: X-RAY - UNILATERAL RIBS ( LEFT ) WITH CHEST REASON FOR EXAM: Male, 26 years old. Left-sided rib pain following a recent fall. TECHNIQUE - RIBS: 4 view(s) of the ribs. TECHNIQUE - CHEST: Single PA view of the chest. COMPARISON: None. FINDINGS - RIBS: Normal visualized ribs without a demonstrated fracture. FINDINGS - CHEST: Calcified granulomas. There is no demonstrated pleural abnormality. Normal size heart. Calcified bilateral hilar lymph nodes. Normal visualized pulmonary arteries. Normal visualized aortic arch and descending thoracic aorta. Normal visualized thoracic spine. Normal visualized ribs, clavicles, and shoulders. There is no demonstrated abnormality of the visualized soft tissue structures of the upper abdomen. RAD/Ribs Uni Min 3V w/PA Chest IMPRESSION: RIBS: Normal x-ray examination of the ribs. CHEST: Normal x-ray examination of the chest. Electronically Signed: David Babin MD at 11:02 EST ,
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
[2021-09-18 12:07] VITALS: RESP 18
[2021-09-18 12:13] LABS: Bacteria 0 SEEN /hpf (None Seen); Mucous, Urine 0 SEEN /hpf (<or=2+); Red Blood Cells-Urine 0 SEEN /hpf (0-5); Squamous Epithelial Cells - UA 0 SEEN /hpf (0-5); White Blood Cells 0 SEEN /hpf (0-5)
[2021-09-18 12:15] LABS: Color, Urine Straw (Yellow); Glucose, Dipstick 1000 mg/dl (Normal); Ketone-Dipstick 50 mg/dl (Negative); Leukocyte Esterase-Dipstick Negative /ul (Negative); Nitrite-Dipstick Negative (Negative); Occult Blood-Urine Negative /ul (Negative); Protein-Dipstick Negative (Negative); Urine Bilirubin Dipstick Negative (Negative); Urine Clarity Clear (Clear); Urine Urobilinogen Normal (Normal)
== END 2021-09-18 12:41 | disposition home or self-care (01) ==
PROVIDERS: Emergency Provider Emergency Medicine; PCP Family Medicine; Visit Provider Emergency Medicine
DX: S20.212A Contusion of left front wall of thorax, initial encounter (principal); E10.9 Type 1 diabetes mellitus without complications; Z79.4 Long term (current) use of insulin; W19.XXXA Unspecified fall, initial encounter; W10.9XXA Fall (on) (from) unspecified stairs and steps, initial encounter; Y93.89 Activity, other specified; Y99.9 Unspecified external cause status; F32.A Depression, unspecified; F41.9 Anxiety disorder, unspecified; F17.210 Nicotine dependence, cigarettes, uncomplicated; F17.220 Nicotine dependence, chewing tobacco, uncomplicated; F17.290 Nicotine dependence, other tobacco product, uncomplicated; Z79.899 Other long term (current) drug therapy
CPT/HCPCS: 71101; 81001; 99282

== ENCOUNTER 2022-01-19 09:40 | Emergency (ER) | payer MEDICAID, SELFPAY ==
[2022-01-19 09:41] VITALS: BP 105/70; PULSE 106; RESP 16; TEMP 36.6; O2SAT 97; BMI 16.5
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
[2022-01-19] MEDS: Doxycycline 100 MG CAPSULE PO (10:18)
== END 2022-01-19 10:22 | disposition home or self-care (01) ==
LOC: ED 10:18
PROVIDERS: Emergency Provider Emergency Medicine; PCP Family Medicine; Visit Provider Emergency Medicine
DX: S80.11XA Contusion of right lower leg, initial encounter (principal); E10.9 Type 1 diabetes mellitus without complications; Z79.4 Long term (current) use of insulin; S80.811A Abrasion, right lower leg, initial encounter; S80.812A Abrasion, left lower leg, initial encounter; S60.512A Abrasion of left hand, initial encounter; V29.9XXA Motorcycle rider (driver) (passenger) injured in unspecified traffic accident, initial encounter; F17.210 Nicotine dependence, cigarettes, uncomplicated; F17.220 Nicotine dependence, chewing tobacco, uncomplicated; F17.290 Nicotine dependence, other tobacco product, uncomplicated
CPT/HCPCS: 73590; 99283

== ENCOUNTER 2022-01-31 10:10 | Emergency (ER) | payer MEDICAID, SELFPAY ==
[2022-01-31 10:10] VITALS: BP 92/80; PULSE 75; RESP 16; TEMP 36.7; O2SAT 99; BMI 18.6
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
[2022-01-31] MEDS: cycloBENZAPRine HCl 10 MG Tablet PO (11:25)
== END 2022-01-31 11:29 | disposition home or self-care (01) ==
PROVIDERS: Emergency Provider Emergency Medicine; PCP Family Medicine; Visit Provider Emergency Medicine
DX: S39.012A Strain of muscle, fascia and tendon of lower back, initial encounter (principal); E10.9 Type 1 diabetes mellitus without complications; Z79.4 Long term (current) use of insulin; X50.0XXA Overexertion from strenuous movement or load, initial encounter; Y93.H9 Activity, other involving exterior property and land maintenance, building and construction; Y99.8 Other external cause status; F32.A Depression, unspecified; F41.9 Anxiety disorder, unspecified; F17.210 Nicotine dependence, cigarettes, uncomplicated; F17.220 Nicotine dependence, chewing tobacco, uncomplicated; Z79.899 Other long term (current) drug therapy
CPT/HCPCS: 99282

== ENCOUNTER 2022-03-02 10:13 | Inpatient (IN) | payer MEDICAID, SELFPAY ==
[2022-03-02] VITALS (21 sets, daily range): BP systolic 92–138; BP diastolic 57–93; PULSE 104–160; RESP 14–24; TEMP 36.1–37; O2SAT 97–100; BMI 19.3; BMI 17.9
--- NOTE | 2022-03-02 10:22 | EKG12_ITS ---
Test Reason : Blood Pressure : / mmHG Vent. Rate : 167 BPM Atrial Rate : 167 BPM P-R Int : 120 ms QRS Dur : 076 ms QT Int : 236 ms P-R-T Axes : 000 080 027 degrees QTc Int : 393 ms Sinus tachycardia Otherwise normal ECG Confirmed by FRANDY MIRELES, KAILEY ([id number]), editorial cartoonist COREY MICHAEL ([id number]) on 03/03/2022 11:35:59 AM Referred By: Confirmed By:KAILEY WISE MD
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
--- NOTE | 2022-03-02 10:28 | NURSING ---
blood glucose HI, Reported to KEN Garcia
[2022-03-02] MEDS: Ondansetron 4 MG/2 ML Vial IV (10:36)
[2022-03-02] MEDS: 0.9% Normal Saline 1,000 ML 999 ML IV ×4 (10:40→14:57)
[2022-03-02 10:44] LABS: Absolute Lymphocyte Count 4.87 X10^3/uL (0.83-4.51); Absolute Neutrophil Count 11.8 X10^3/uL (2.0-7.7); Basophil# 0.16 X10^3/uL; Basophil% 0.9 % (0-1); Eosinophil# 0.14 X10^3/uL; Eosinophils% 0.8 % (0-5); Hemoglobin 16.6 g/dL (13.0-16.5); Lymphocyte # 4.87 X10^3/ul (0.83-4.51); Lymphocyte % 26.6 % (19-41); Mean Corp Hgb Conc 29.6 g/dL (32-36); Mean Corpuscular Hgb 27.2 pg (27.0-32.0); Mean Corpuscular Volume 91.7 fL (80-94); Mean Platelet Vol. 10.7 fl (6.2-12.0); Monocyte% 5.5 % (0-10); NRBC Flagged by Analyzer 0 % (0-5); Neutrophil # 11.82 X10^3/uL (2.7-7.7); Neutrophil % 64.6 % (47-70); Platelet Count 518 K/mm3 (150-450); RBC Distribution Width CV 14.2 % (11.6-14.6); RBC Distribution Width SD 47.6 fl (35.1-43.9); Red Blood Count 6.11 M/mm3 (4.6-6.2); White Blood Count 18.3 K/mm3 (4.4-11.0)
--- NOTE | 2022-03-02 10:51 | ED.RN ---
PT REFUSING COVID SWAB AND CHEST XRAY AT THIS TIME. DR LEVY MADE AWARE
[2022-03-02 11:18] LABS: ALB/GLOB Ratio 0.8 RATIO (0.9-2.4); AST(SGOT) 16 U/L (15-37); Alanine Aminotransfer ALT/SGPT 62 U/L (16-61); Albumin, Serum 4.1 g/dL (3.2-5.0); Alkaline Phosphatase 288 U/L (45-117); Anion Gap 32 (5-15); BUN 28 mg/dL (7-18); BUN/Creat Ratio 17.3 RATIO (10-20); CPK Total, Creatine Kinase 44 U/L (39-308); Calcium,Total 9.4 mg/dL (8.5-10.1); Chloride 86 mmol/L (98-107); Creatinine, Serum 1.62 mg/dL (0.70-1.30); EST Glomerular Filtration Rate 56 mL/min (>60); Est Glom Filt Rate - Afr Amer 67 mL/min (>60); Estimated Creatinine Clearance 60.37 ml/min; Globulin 4.9 g/dL (2.2-4.2); Glucose 852 mg/dL (74-106); Magnesium 2.6 mg/dL (1.6-2.6); Phosphorus 9.1 mg/dL (2.5-4.9); Potassium 5.2 mmol/L (3.5-5.1); Sodium Level 128 mmol/L (136-145)
--- NOTE | 2022-03-02 12:32 | HP.PCM_ITS ---
Documented by User: RICK Baker 03/02/22 12:44 HPI - General General Date of Admission: 03/02/22 Date of Service: 03/02/22 Chief Complaint: Nausea, vomiting HPI Narrative UNA DURON, is a 27 M who presents with reports of not feeling well for the past couple days and being nauseous and vomiting. Patient has a history of type 1 diabetes and is noncompliant with his medication regimen. Patient reportedly ran out of his insulin sometime ago and refused to go to the physician for a appointment to get refills. Upon presentation patient's blood sugar over 800. Patient placed on insulin drip in ER. Patient also has history of anxiety and depression and is on sertraline. [facility] Medical History Anxiety Depression H/O fracture of skull Septic shock Type 1 diabetes mellitus Type I diabetes mellitus, uncontrolled Home Medications ferrous sulfate 325 mg (65 mg iron) tablet (FeroSul) 325 mg PO BREAKFAST IRON 03/05/21 [History Last Taken 03/04/21] insulin lispro 100 unit/mL subcutaneous pen 30 unit SQ TIDCM short acting insulin 03/05/21 [History Last Taken 03/04/21] sertraline 100 mg tablet 100 mg PO DAILY DEPRESSION 03/05/21 [History Last Taken 03/04/21] cyclobenzaprine 10 mg tablet 10 mg PO BID PRN muscle spasm #10 tabs 01/31/22 [Rx Last Taken Unknown] insulin glargine 100 unit/mL subcutaneous cartridge 40 unit subcut DAILY 0 03/02/22 [History Last Taken Unknown] Allergy/AdvReac Type Severity Reaction Status Date / Time gluten AdvReac Nausea/Vom/ Verified 03/02/22 10:16 Diarrhea wheat AdvReac Nausea Verified 03/02/22 10:16 Family History Father Diabetes Surgical History H/O skin graft Social History household members: family Smoking Status: Current every day smoker tobacco type: cigarettes and smokeless tobacco Smokeless tobacco user: chewing tobacco second hand exposure: Yes alcohol intake: never substance use type: does not use ROS Constitutional Constitutional: Reports chills and malaise; Denies anorexia or change in weight Cardiovascular Cardiovascular: Denies chest pain, edema or palpitations Respiratory/Chest Respiratory/Chest: Reports tachypnea; Denies cough, shortness of breath at rest, shortness of breath with exertion or wheezing Gastrointestinal Gastrointestinal: Reports nausea and vomiting; Denies abdominal pain or constipation Genitourinary Genitourinary: Reports polyuria; Denies dysuria Musculoskeletal Musculoskeletal: Denies back pain, extremity pain, joint pain, joint stiffness or joint swelling Integumentary Integumentary: Denies dry skin Neurologic Neurologic: Denies abnormal gait, abnormal speech, confusion or dizziness Psychiatric Psychiatric: Denies anxiety or depression Endocrine Endocrinology: Reports excessive sweating and polyuria Hematologic/Lymphatic Hematologic/Lymphatic: Denies anemia or easy bleeding Vital Signs Vital Signs Vital Signs: 03/02/22 10:13 03/02/22 10:52 03/02/22 12:00 Temperature 97.0 F L 97.7 F L Temperature Source Temporal Temporal Pulse Rate 139 H 160 H Respiratory Rate 16 22 H Respiratory Effort Short of Breath Respiratory Pattern [facility] Blood Pressure 118/88 H 138/93 H Blood Pressure Mean 98 108 Pulse Ox 98 98 Oxygen Delivery Method Room Air Room Air Weight Weight: 135 lb Body Mass Index (BMI) 19.3 Physical Exam Const alert, oriented x3 and no apparent distress HEENT normocephalic, head/scalp atraumatic and moist oral mucous membranes Eyes conjunctivae normal and no scleral icterus Neck no lymphadenopathy and supple General: trachea midline Resp clear to auscultation bilaterally Effort and Inspection: tachypneic Cardio regular rate, regular rhythm, S1 normal heart sound, S2 normal heart sound and peripheral pulses 2+ throughout Rate: tachycardic GI normal to inspection, nondistended, normoactive bowel sounds, soft to palpation and non-tender Extremity normal capillary refill, no clubbing, cyanosis or edema and no calf tenderness Skin General Skin Exam: no breakdown Lesions: no lesions Rashes: no rashes Neuro no focal motor deficits and no sensory deficits noted Psych thought process normal Appearance: unkempt Attitude: uncooperative Results Lab / Micro Data Result Diagrams: 03/02/22 10:26 03/02/22 16:05 Labs: Laboratory Results - last 24 hr 03/02/22 10:26: WBC 18.3 H, RBC 6.11, Hgb 16.6 H, Hct 56.0 H, MCV 91.7, MCH 27.2, MCHC 29.6 L, RDW Std Deviation 47.6 H, RDW Coeff of Alec 14.2, Plt Count 518 H, MPV 10.7, Immature Gran % (Auto) 1.600 H, Neut % (Auto) 64.6, Lymph % (Auto) 26.6, [place] % (Auto) 5.5, Eos % (Auto) 0.8, Baso % (Auto) 0.9, Absolute Neuts (auto) 11.8 H, Absolute Lymphs (auto) 4.87 H, Nucleated RBC % 0 03/02/22 10:26: Sodium 128 L, Potassium 5.2 H, Chloride 86 L, Carbon Dioxide 10.0 L, Anion Gap 32 H, BUN 28 H, Creatinine 1.62 H, Estim Creat Clear Calc 60.37, Est GFR (MDRD) Af Amer 67, Est GFR (MDRD) Non-Af 56 L, BUN/Creatinine Ratio 17.3, Glucose 852 H*, Calcium 9.4, Phosphorus 9.1 H*, Magnesium 2.6, Total Bilirubin 0.60, AST 16, ALT 62 H, Alkaline Phosphatase 288 H, Total Creatine Kinase 44, Total Protein 9.0 H, Albumin 4.1, Globulin 4.9 H, Albumin/Globulin Ratio 0.8 L 03/02/22 10:26: Acetone Level MODERATE H Rhythm Strip Rhythm Strip: Sinus Tach Rate: 167 Ectopy: None Assessment & Plan Assessment/Plan (1) DKA, type 1: (2) Hyperphosphatemia: (3) Acute dehydration: (4) FRANKLIN (acute kidney injury): (5) Noncompliance with medication regimen: (6) Acute hyperkalemia: PLAN: Plan 1. DKA -Admit to ICU -Insulin drip initiated in ER, will continue -Blood glucose checks per protocol with insulin totals every 6 hours -N.p.o. -Daily weights -CBC daily with BMP every 4 hours -Urinalysis pending -Positive acetone -IV fluid resuscitation ordered per protocol for DKA 2. Hyperkalemia and hyperphosphatemia -Secondary to dehydration and DKA -Every 4 hours BMP ordered 3. Leukocytosis -likely reactive, no obvious signs or symptoms of infection, patient refused COVID testing -CBC daily 4. FRANKLIN -Secondary to dehydration and DKA -IV fluid resuscitation ordered per DKA protocol -Every 4 hours BMP -Review of labs demonstrates baseline creatinine 0.7-0.9 5. Pseudohyponatremia -Secondary to dehydration and DKA -BMP every 4 hours 6. Elevated liver enzymes -Alkaline phosphatase chronically elevated -Hepatitis panel negative in 2018 DVT prophylaxis-SCDs This patient was seen by Melony Peguero, EMILY-C under the supervision of Dr. Farah. 29 minutes spent in clinical coordination of patient's plan of care. Documented by User: Dr. Deangelo Farah, 03/02/22 17:27 HPI - General General Date of Admission: 03/02/22 [facility] Medical History Anxiety Depression H/O fracture of skull Septic shock Type 1 diabetes mellitus Type I diabetes mellitus, uncontrolled Home Medications ferrous sulfate 325 mg (65 mg iron) tablet (FeroSul) 325 mg PO BREAKFAST IRON 03/05/21 [History Last Taken 03/04/21] insulin lispro 100 unit/mL subcutaneous pen 30 unit SQ TIDCM short acting insuli n 03/05/21 [History Last Taken 03/04/21] sertraline 100 mg tablet 100 mg PO DAILY DEPRESSION 03/05/21 [History Last Taken 03/04/21] cyclobenzaprine 10 mg tablet 10 mg PO BID PRN muscle spasm #10 tabs 01/31/22 [Rx Last Taken Unknown] insulin glargine 100 unit/mL subcutaneous cartridge 40 unit subcut DAILY 03/02/22 [History Last Taken Unknown] Allergy/AdvReac Type Severity Reaction Status Date / Time gluten AdvReac Nausea/Vom/ Verified 03/02/22 10:16 Diarrhea wheat AdvReac Nausea Verified 03/02/22 10:16 Family History Father Diabetes Surgical History H/O skin graft Social History household members: family Smoking Status: Current every day smoker tobacco type: cigarettes and smokeless tobacco Smokeless tobacco user: chewing tobacco second hand exposure: Yes alcohol intake: never substance use type: does not use Results Lab / Micro Data Result Diagrams: 03/02/22 10:26 03/02/22 16:05 Assessment & Plan Assessment/Plan (1) DKA, type 1: (2) Hyperphosphatemia: (3) Acute dehydration: (4) FRANKLIN (acute kidney injury): (5) Noncompliance with medication regimen: (6) Acute hyperkalemia: Charges/Coding Addendum Addendum: Patient was seen and examined independently of Yeni Peguero today, he came to the ER today complaining of feeling unwell, he had been out of his insulin for several days, he states that his primary care physician would not refill it, he also talked of losing his insulin prescription that he had recently got filled. Patient has a history of noncompliance, his hygiene was very poor and he was visibly dirty when seen in the emergency room. Patient was lethargic and only spoke several sentences to this examiner, it was difficult for him to carry on a conversation at length with me. On examination he appeared older than his stated age, hygiene was poor and the patient was visibly dirty. Vital signs as documented. Skin warm and dry and without overt rashes. Neck without JVD, neck was supple, trachea midline, thyroid was normal. Lungs clear bilaterally, normal air movement was noted. Heart exam notable for regular rhythm, normal sounds and absence of murmurs, rubs or gallops. Abdomen unremarkable and without evidence of organomegaly, mas ses, or abdominal aortic enlargement. Bowel sounds are present, abdomen is not distended. Extremities nonedematous, no cyanosis was noted, no clubbing was noted. Neuro: Cranial nerves II through XII are grossly intact, no focal motor deficits were noted, sensation to light touch and pinprick intact, motor exam 5/5 throughout. Psych: Patient is lethargic, he does answer some questions appropriately but does not carry on a lengthy conversation with this examiner. Labs showed the patient to be in DKA, he also had an elevated white blood cell count. Patient will be admitted to ICU, he will receive IV fluids and his BMP will be monitored. Patient was placed on an insulin drip. Overall prognosis for this patient in my opinion is poor given his history of self-neglect and noncompliance. Impression: #1 DKA secondary to uncontrolled type 1 diabetes-again patient was admitted to ICU on an insulin drip, he was given IV fluids and labs will be monitored. Patient will be n.p.o. for now #2 poor compliance with medical regimen-etiology unclear, makes care recovery and prognosis complicated #3 [id number] unclear, makes care recovery and prognosis complicated #4 chronic depression-patient is on Zoloft #5 metabolic encephalopathy secondary to #1-this should improve with ad ministration of insulin and fluids. #6 acute dehydration-again patient will receive IV fluids, labs will be monitored #7 leukocytosis-probably stress induced, CBC will be repeated tomorrow I reviewed Yeni Peguero's history and physical including her medical assessment and plan of care and with the above additions endorse it. Total clinical time spent by myself addressing the patient's medical issues, reviewing the data, and collaborating with patient's care team: 45 minutes Visit Charges Inpatient E&M: [id number] Init Hosp L3
[2022-03-02 12:55] LABS: Anion Gap 30 (5-15); BUN 26 mg/dL (7-18); BUN/Creat Ratio 24.1 RATIO (10-20); Calcium,Total 7.7 mg/dL (8.5-10.1); Chloride 99 mmol/L (98-107); Creatinine, Serum 1.08 mg/dL (0.70-1.30); EST Glomerular Filtration Rate 89 mL/min (>60); Est Glom Filt Rate - Afr Amer 107 mL/min (>60); Estimated Creatinine Clearance 83.71 ml/min; Glucose 596 mg/dL (74-106); Potassium 4.9 mmol/L (3.5-5.1); Sodium Level 135 mmol/L (136-145)
[2022-03-02] MEDS: 0.9% Normal Saline 1,000 ML 250 ML IV (13:18)
[2022-03-02] MEDS: Dext 5%-0.45% NS 1,000 ML 150 ML IV ×2 (15:05→21:31)
[2022-03-02 15:21] LABS: Bedside Glucose 238 mg/dL (74-106)
[2022-03-02 15:21] LABS: Bedside Glucose 322 mg/dL (74-106)
[2022-03-02 15:21] LABS: Bedside Glucose > 500 mg/dL (74-106)
[2022-03-02 17:05] LABS: Anion Gap 15 (5-15); BUN 19 mg/dL (7-18); BUN/Creat Ratio 19.8 RATIO (10-20); Calcium,Total 7.1 mg/dL (8.5-10.1); Chloride 113 mmol/L (98-107); Creatinine, Serum 0.96 mg/dL (0.70-1.30); EST Glomerular Filtration Rate 101 mL/min (>60); Est Glom Filt Rate - Afr Amer 123 mL/min (>60); Estimated Creatinine Clearance 94.17 ml/min; Glucose 190 mg/dL (74-106); Potassium 4.6 mmol/L (3.5-5.1); Sodium Level 140 mmol/L (136-145)
[2022-03-02 18:16] LABS: Bedside Glucose 196 mg/dL (74-106)
[2022-03-02 18:16] LABS: Bedside Glucose 170 mg/dL (74-106)
[2022-03-02 18:16] LABS: Bedside Glucose 185 mg/dL (74-106)
[2022-03-02 18:19] LABS: Mucous, Urine 0 SEEN /hpf (<or=2+); Red Blood Cells-Urine 0 SEEN /hpf (0-5); Squamous Epithelial Cells - UA 0 SEEN /hpf (0-5); White Blood Cells 0 SEEN /hpf (0-5)
[2022-03-02 18:27] LABS: Color, Urine Yellow (Yellow); Glucose, Dipstick 1000 mg/dl (Normal); Leukocyte Esterase-Dipstick Negative /ul (Negative); Nitrite-Dipstick Negative (Negative); Occult Blood-Urine Negative /ul (Negative); Protein-Dipstick 30 mg/dl (Negative); Specific Gravity, Urine 1.025 (1.002-1.030); Urine Bilirubin Dipstick Negative (Negative); Urine Clarity Clear (Clear); Urine Urobilinogen Normal (Normal)
[2022-03-02 18:46] LABS: Ketone-Dipstick 150 mg/dl (Negative)
[2022-03-02 19:00] LABS: Bacteria 1+ /hpf (None Seen)
[2022-03-02 19:01] LABS: Coarse Granular Cast 5-10 SEEN /lpf (0-5 /lpf)
[2022-03-02 20:31] LABS: Bedside Glucose 111 mg/dL (74-106)
[2022-03-02 20:48] LABS: Anion Gap 9 (5-15); BUN 13 mg/dL (7-18); BUN/Creat Ratio 12.7 RATIO (10-20); Calcium,Total 7.8 mg/dL (8.5-10.1); Chloride 113 mmol/L (98-107); Creatinine, Serum 1.02 mg/dL (0.70-1.30); EST Glomerular Filtration Rate 95 mL/min (>60); Est Glom Filt Rate - Afr Amer 114 mL/min (>60); Estimated Creatinine Clearance 88.63 ml/min; Glucose 110 mg/dL (74-106); Sodium Level 140 mmol/L (136-145)
[2022-03-02 21:26] LABS: Bedside Glucose 89 mg/dL (74-106)
[2022-03-02 22:20] LABS: Bedside Glucose 115 mg/dL (74-106)
[2022-03-02 22:25] LABS: Bedside Glucose 81 mg/dL (74-106)
--- NOTE | 2022-03-02 23:07 | NURSING ---
Insulin gtt turned down to 1 unit/hr per Dr. Hicks's order d/t pt's blood glucose being 75.
[2022-03-02 23:21] LABS: Bedside Glucose 75 mg/dL (74-106)
[2022-03-03] VITALS (12 sets, daily range): BP systolic 93–117; BP diastolic 60–73; PULSE 91–105; RESP 14–18; TEMP 36.6–36.8; O2SAT 96–100
[2022-03-03 00:25] LABS: Bedside Glucose 74 mg/dL (74-106)
[2022-03-03 00:26] LABS: Anion Gap 6 (5-15); BUN 13 mg/dL (7-18); Calcium,Total 7.8 mg/dL (8.5-10.1); Chloride 114 mmol/L (98-107); Creatinine, Serum 0.93 mg/dL (0.70-1.30); EST Glomerular Filtration Rate 105 mL/min (>60); Est Glom Filt Rate - Afr Amer 127 mL/min (>60); Estimated Creatinine Clearance 97.21 ml/min; Glucose 77 mg/dL (74-106); Potassium 3.5 mmol/L (3.5-5.1); Sodium Level 141 mmol/L (136-145)
--- NOTE | 2022-03-03 00:28 | NURSING ---
Pt's gap closed x2, bicarb now 21. Insulin gtt turned down to 0.5 units/hr per Dr. Hicks
[2022-03-03 01:26] LABS: Bedside Glucose 101 mg/dL (74-106)
[2022-03-03] MEDS: Dextrose 50%-Water 25 GM/50 ML DISP.SYRIN IV ×2 (02:09→05:22)
--- NOTE | 2022-03-03 02:10 | NURSING ---
Pt's blood sugar now 39. Pt is alert, asymptomatic. Insulin gtt paused, D50 given per protocol. Dr. Hicks notified.
[2022-03-03 02:31] LABS: Bedside Glucose 39 mg/dL (74-106)
[2022-03-03 02:50] LABS: Bedside Glucose 175 mg/dL (74-106)
[2022-03-03 03:25] LABS: Bedside Glucose 109 mg/dL (74-106)
[2022-03-03 04:15] LABS: Absolute Lymphocyte Count 3.87 X10^3/uL (0.83-4.51); Absolute Neutrophil Count 8.9 X10^3/uL (2.0-7.7); Basophil# 0.05 X10^3/uL; Basophil% 0.3 % (0-1); Eosinophil# 0.24 X10^3/uL; Eosinophils% 1.7 % (0-5); Hematocrit 38.3 % (40-54); Hemoglobin 12.6 g/dL (13.0-16.5); Lymphocyte # 3.87 X10^3/ul (0.83-4.51); Mean Corp Hgb Conc 32.9 g/dL (32-36); Mean Corpuscular Hgb 27.5 pg (27.0-32.0); Mean Corpuscular Volume 83.6 fL (80-94); Mean Platelet Vol. 9.4 fl (6.2-12.0); Monocyte# 1.18 X10^3/uL; Monocyte% 8.2 % (0-10); NRBC Flagged by Analyzer 0 % (0-5); Neutrophil # 8.91 X10^3/uL (2.7-7.7); Neutrophil % 62.2 % (47-70); Platelet Count 345 K/mm3 (150-450); RBC Distribution Width CV 14.3 % (11.6-14.6); RBC Distribution Width SD 43.5 fl (35.1-43.9); Red Blood Count 4.58 M/mm3 (4.6-6.2); White Blood Count 14.3 K/mm3 (4.4-11.0)
[2022-03-03 04:26] LABS: Bedside Glucose 89 mg/dL (74-106)
[2022-03-03 04:30] LABS: Anion Gap 8 (5-15); BUN 12 mg/dL (7-18); BUN/Creat Ratio 14.9 RATIO (10-20); Calcium,Total 7.9 mg/dL (8.5-10.1); Chloride 113 mmol/L (98-107); Creatinine, Serum 0.81 mg/dL (0.70-1.30); EST Glomerular Filtration Rate 124 mL/min (>60); Est Glom Filt Rate - Afr Amer 150 mL/min (>60); Estimated Creatinine Clearance 111.61 ml/min; Glucose 71 mg/dL (74-106); Potassium 3.6 mmol/L (3.5-5.1); Sodium Level 142 mmol/L (136-145)
--- NOTE | 2022-03-03 04:39 | NURSING ---
Notified Dr. Hicks via cortext- Insulin gtt has been paused since 0200. Per protocol, not to restart unless blood glucose is above 200. Last blood glucose 89. D5.45+20KCl still running. Gap 8. Bicarb 21. Potassium is 3.6. Physician responded Ok. No new orders at this time.
[2022-03-03 05:21] LABS: Bedside Glucose 59 mg/dL (74-106)
[2022-03-03 06:25] LABS: Bedside Glucose 224 mg/dL (74-106)
[2022-03-03] MEDS: Insulin Lispro 100 UNIT/ML INSULN.PEN SC (07:59)
[2022-03-03] MEDS: Insulin Lispro 100 UNIT/ML INSULN.PEN 10 UNIT SC (07:59)
--- NOTE | 2022-03-03 09:25 | DCINST_ITS ---
Discharge Instructions Diet Discharge Diet: 2000 Calorie Control Diet Activity Discharge Activity: Return to Normal Activity Dressing / Incision Call your doctor if you observe: Shortness of breath, Dizziness and - (Nausea and Vomiting) Follow Up Care Test Results: Test results from this visit will be discussed in further detail at your follow- up appointment, if applicable. Discharge Plan Admission Admit Date/Time: 03/02/22 11:34 Primary Reason for Your Visit: DKA Attending Provider: Deangelo Farah Primary Care Provider: Deangelo Noel Discharge Orders/Prescriptions Prescriptions: New insulin glargine [Lantus Solostar U-100 Insulin] 100 unit/mL (3 mL) insulin pen 50 unit subcut QPM Qty: 15 0RF Continued ferrous sulfate [FeroSul] 325 mg (65 mg iron) tablet 325 mg PO BREAKFAST Label Comments: Take 1 tablet by mouth daily with breakfast. sertraline 100 mg tablet 100 mg PO DAILY Label Comments: Take 1 tablet by mouth once daily. insulin lispro 100 UNIT/ML insulin pen 30 unit SQ TIDCM Rx Instructions: +SLIDING SCALE cyclobenzaprine 10 mg tablet 10 mg PO BID PRN (Reason: muscle spasm) Qty: 10 0RF Discontinued Lantus U-100 Insulin 100 unit/mL Cartridge 40 unit SUBCUT DAILY Referrals / Follow Up: Deangelo Noel MD [Primary Care Provider] - Within 2 Weeks Disposition Disposition (needs filled in before D/C Order can be placed): Home, Self Care
--- NOTE | 2022-03-03 09:43 | DS.PCM_ITS ---
Providers Date of Admission: 03/02/22 Date of Discharge: 03/03/22 Primary Care Physician: Deangelo Noel MD Reason For Visit: DKA Diagnosis Discharge Diagnosis (1) DKA, type 1: Status: Acute Code(s): E10.10 - Type 1 diabetes mellitus with ketoacidosis without coma (2) Hyperphosphatemia: Status: Acute Code(s): E83.39 - Other disorders of phosphorus metabolism (3) Acute dehydration: Status: Acute Code(s): E86.0 - Dehydration (4) FRANKLIN (acute kidney injury): Status: Acute Code(s): N17.9 - Acute kidney failure, unspecified (5) Noncompliance with medication regimen: Status: Acute Code(s): Z91.14 - Patient's other noncompliance with medication regimen (6) Acute hyperkalemia: Status: Acute Code(s): E87.5 - Hyperkalemia Medications at Discharge Home Medications ferrous sulfate 325 mg (65 mg iron) tablet (FeroSul) 325 mg PO BREAKFAST IRON 03/05/21 insulin lispro 100 unit/mL subcutaneous pen 30 unit SQ TIDCM short acting insulin 03/05/21 sertraline 100 mg tablet 100 mg PO DAILY DEPRESSION 03/05/21 cyclobenzaprine 10 mg tablet 10 mg PO BID PRN muscle spasm #10 tabs 01/31/22 insulin glargine 100 unit/mL (3 mL) subcutaneous pen (Lantus Solostar U-100 Insu trever) 50 unit (0.5 mL) subcut QPM #15 mL 03/03/22 Hospital Course Operations None Procedures None Summary of Care Provided Minutes Spent on Discharge: 35 Hospital Course: Patient is a 27-year-old male who is a type I diabetic and came in with nausea and vomiting. Patient is noncompliant with his medication regimen and reportedly told ER staff that he had lost the prescription that he recently got and in order to get a new prescription he had to be seen by the physician which he has not done yet. Patient initial blood sugar over 800 and patient was subsequently started on a insulin drip. Patient's insulin drip was turned off a t 2 AM this morning and patient's blood sugars have continued to be with in acceptable range. Patient was fed breakfast and reinitiated on his subcu insulin regimen. Patient will be discharged home with an increase Lantus. Discussed with patient the importance of taking his medications as prescribed and regularly checking his blood sugar. Discussed with patient complications that may arise from being noncompliant with his insulin regimen and not taking care of his blood sugars as he should. Patient will be discharged home with instructions to follow-up with Dr. Noel in 1 to 2 weeks. Physical Exam Const alert, oriented x3 and no apparent distress General Appearance: cooperative HEENT normocephalic and head/scalp atraumatic Eyes conjunctivae normal and no scleral icterus Neck no lymphadenopathy and supple General: trachea midline Resp normal respiratory effort, normal air movement and clear to auscultation bilaterally Cardio regular rate, regular rhythm, S1 normal heart sound, S2 normal heart sound and peripheral pulses 2+ throughout GI normal to inspection, nondistended, normoactive bowel sounds, soft to palpation and non-tender Extremity normal capillary refill and no clubbing, cyanosis or edema Skin skin turgor normal Neuro no focal motor deficits and no sensory deficits noted Speech: speech normal Psych affect normal Medical Records Data Medical Nutrition Assessment Dietitian: Malnutrition Criteria Met Start: 03/02/22 16:09 Freq: Status: Active Protocol: Document 03/02/22 16:09 RMA (Rec: 03/02/22 16:10 RMA [id number]) Nutrition Malnutrition Evidence of Malnutrition Exists Yes Malnutrition (moderate): Chronic Evidenced By Weight Loss (Moderate), Physical Changes (Moderate) Clinical Problem Chronic Disease or Condition Related Malnutrition Etiology Moderate protein-calorie malnutrition in the context of chronic disease related to medical/dietary noncompliance; hyperglycemia Signs/Symptoms as evidenced by ~14% wt loss x 1 year and moderate to severe muscle and fat wasting in the clavicle, orbitals, temporal region, arms and legs; Hgba1C 11.5% and blood glucose over 800 upon presentation this admission Status Active Problem Recommendation Dietitian Recommendations/Changes Recommend advance diet as medically able to carbohydrate -controlled diet. Pt agreeable to glucerna shake as diet advanced. Diet education as pt willing; appears indifferent to diet adherence/DM at this time. Weight / BMI Weight Weight: 125 lb 3.561 oz Body Mass Index (BMI) 17.9 ABG / Lab / Microbiology Data Result Diagrams: 03/03/22 04:09 03/03/22 04:09 Laboratory: Laboratory Results - last 24 hr 03/02/22 10:26: WBC 18.3 H, RBC 6.11, Hgb 16.6 H, Hct 56.0 H, MCV 91.7, MCH 27.2, MCHC 29.6 L, RDW Std Deviation 47.6 H, RDW Coeff of Alec 14.2, Plt Count 518 H, MPV 10.7, Immature Gran % (Auto) 1.600 H, Neut % (Auto) 64.6, Lymph % (Auto) 26.6, [place] % (Auto) 5.5, Eos % (Auto) 0.8, Baso % (Auto) 0.9, Absolute Neuts (auto) 11.8 H, Absolute Lymphs (auto) 4.87 H, Nucleated RBC % 0 03/02/22 10:26: Sodium 128 L, Potassium 5.2 H, Chloride 86 L, Carbon Dioxide 10.0 L, Anion Gap 32 H, BUN 28 H, Creatinine 1.62 H, Estim Creat Clear Calc 60.37, Est GFR (MDRD) Af Amer 67, Est GFR (MDRD) Non-Af 56 L, BUN/Creatinine Ratio 17.3, Glucose 852 H*, Calcium 9.4, Phosphorus 9.1 H*, Magnesium 2.6, Total Bilirubin 0.60, AST 16, ALT 62 H, Alkaline Phosphatase 288 H, Total Creatine Kinase 44, Total Protein 9.0 H, Albumin 4.1, Globulin 4.9 H, Albumin/Globulin Ratio 0.8 L 03/02/22 10:26: Acetone Level MODERATE H 03/02/22 12:32: Sodium 135 L, Potassium 4.9, Chloride 99, Carbon Dioxide 6.0 L*, Anion Gap 30 H, BUN 26 H, Creatinine 1.08, Estim Creat Clear Calc 83.71, Est GFR (MDRD) Af Amer 107, Est GFR (MDRD) Non-Af 89, BUN/Creatinine Ratio 24.1 H, Glucose 596 H*, Calcium 7.7 L 03/02/22 13:10: POC Glucose > 500 H* 03/02/22 13:56: POC Glucose 322 H 03/02/22 14:58: POC Glucose 238 H 03/02/22 16:01: POC Glucose 170 H 03/02/22 16:05: Sodium 140, Potassium 4.6, Chloride 113 H, Carbon Dioxide 12.0 L , Anion Gap 15, BUN 19 H, Creatinine 0.96, Estim Creat Clear Calc 94.17, Est GFR (MDRD) Af Amer 123, Est GFR (MDRD) Non-Af 101, BUN/Creatinine Ratio 19.8, Glucose 190 H, Calcium 7.1 L 03/02/22 17:03: POC Glucose 196 H 03/02/22 17:57: POC Glucose 185 H 03/02/22 18:10: Urine Color Yellow, Urine Clarity Clear, Urine pH 5.0, Ur Specific [place] 1.025, Urine Protein 30 H, Urine Glucose (UA) 1000 H, Urine Ketones 150 A*, Urine Occult Blood Negative, Urine Nitrite Negative, Urine Bilirubin Negative, Urine Urobilinogen Normal, Ur Leukocyte Esterase Negative, Urine RBC 0 SEEN, Urine WBC 0 SEEN, Ur Squamous Epith Cells 0 SEEN, Urine Bacteria 1+, Coarse Granular Casts 5-10 SEEN, Urine Mucus 0 SEEN 03/02/22 19:04: POC Glucose 111 H 03/02/22 19:58: POC Glucose 115 H 03/02/22 20:05: Sodium 140, Potassium 4.0, Chloride 113 H, Carbon Dioxide 18.0 L , Anion Gap 9, BUN 13, Creatinine 1.02, Estim Creat Clear Calc 88.63, Est GFR (MDRD) Af Amer 114, Est GFR (MDRD) Non-Af 95, BUN/Creatinine Ratio 12.7, Glucose 110 H, Calcium 7.8 L 03/02/22 21:02: POC Glucose 89 03/02/22 22:02: POC Glucose 81 03/02/22 23:01: POC Glucose 75 03/03/22 00:00: Sodium 141, Potassium 3.5, Chloride 114 H, Carbon Dioxide 21.0, Anion Gap 6, BUN 13, Creatinine 0.93, Estim Creat Clear Calc 97.21, Est GFR (MDRD) Af Amer 127, Est GFR (MDRD) Non-Af 105, BUN/Creatinine Ratio 14.0, Glucose 77, Calcium 7.8 L 03/03/22 00:00: POC Glucose 74 03/03/22 01:01: POC Glucose 101 03/03/22 02:05: POC Glucose 39 L* 03/03/22 02:30: POC Glucose 175 H 03/03/22 03:04: POC Glucose 109 H 03/03/22 04:02: POC Glucose 89 03/03/22 04:09: Sodium 142, Potassium 3.6, Chloride 113 H, Carbon Dioxide 21.0, Anion Gap 8, BUN 12, Creatinine 0.81, Estim Creat Clear Calc 111.61, Est GFR (MDRD) Af Amer 150, Est GFR (MDRD) Non-Af 124, BUN/Creatinine Ratio 14.9, Glucose 71 L, Calcium 7.9 L 03/03/22 04:09: WBC 14.3 H, RBC 4.58 L, Hgb 12.6 L, Hct 38.3 L, MCV 83.6 D, MCH 27.5, MCHC 32.9 D, RDW Std Deviation 43.5, RDW Coeff of Alec 14.3, Plt Count 345, MPV 9.4, Immature Gran % (Auto) 0.600, Neut % (Auto) 62.2, Lymph % (Auto) 27.0, [place] % (Auto) 8.2, Eos % (Auto) 1.7, Baso % (Auto) 0.3, Absolute Neuts (auto) 8.9 H, Absolute Lymphs (auto) 3.87, Nucleated RBC % 0 03/03/22 05:00: POC Glucose 59 L 03/03/22 06:04: POC Glucose 224 H D/C Instructions Discharge Diet: 2000 Calorie Control Diet Call your doctor if you observe: Shortness of breath, Dizziness and - (Nausea an d Vomiting) Meaningful Use Info Meaningful Use Diagnoses (Choose all that apply): None applicable Discharge Plan Admission Admit Date/Time: 03/02/22 11:34 Primary Reason for Your Visit: DKA Attending Provider: Deangelo Farah Primary Care Provider: Deangelo Noel Discharge Orders/Prescriptions Prescriptions: New insulin glargine [Lantus Solostar U-100 Insulin] 100 unit/mL (3 mL) insulin pen 50 unit subcut QPM Qty: 15 0RF Continued ferrous sulfate [FeroSul] 325 mg (65 mg iron) tablet 325 mg PO BREAKFAST Label Comments: Take 1 tablet by mouth daily with breakfast. sertraline 100 mg tablet 100 mg PO DAILY Label Comments: Take 1 tablet by mouth once daily. insulin lispro 100 UNIT/ML insulin pen 30 unit SQ TIDCM Rx Instructions: +SLIDING SCALE cyclobenzaprine 10 mg tablet 10 mg PO BID PRN (Reason: muscle spasm) Qty: 10 0RF Discontinued Lantus U-100 Insulin 100 unit/mL Cartridge 40 unit SUBCUT DAILY Referrals / Follow Up: Deangelo Noel MD [Primary Care Provider] - Within 2 Weeks Disposition Disposition (needs filled in before D/C Order can be placed): Home, Self Care
--- NOTE | 2022-03-03 10:18 | CASEMGMT ---
KEN KAHN Face to Face with patient for initial transition planning/care coordination assessment. KEN KAHN introduced self and role at [facility]. Patient lying in bed, alert and oriented. Patient willing to participate in assessment and is able to answer all questions appropriately. Care providers, pharmacy, and demographics verified. Patient wishes to discharge home, denies need for home health at this time. Patient states he has no further needs or concerns at this time. CM to follow for discharge planning needs that may arise. PCP: Sadie community service representative scheduling follow-up appt prior to discharge. Specialists: none Preferred Pharmacy: [facility] Insurance: [place] Prescription Benefit: yes Living Will/HPOA: none LNOK: father Living Arrangements: Patient lives with father in a mobile home. Patient states he is independent at home and able to ambulate stairs. Transportation: self, father DME/HHC: Patient states he has glucometer and supplies at home. Patient states he needed refill of insulin. Hospitalist provided patient with insulin script KEN KAHN advised patient on the importance of attending follow-up appt with PCP for insulin refills. Patient voiced understanding and will attend next appt. Disposition Plan: Patient to discharge home with family support and follow-up plans in place. Beth MANTILLA, RN, CM
[2022-03-03 14:41] LABS: Bedside Glucose > 500 mg/dL (74-106)
[2022-03-03 15:32] LABS: Bedside Glucose > 500 mg/dL (74-106)
--- NOTE | 2022-03-03 18:44 | DS.PCM_ITS ---
Providers Date of Admission: 03/02/22 Date of Discharge: 03/03/22 Primary Care Physician: Deangelo Noel MD Reason For Visit: DKA Diagnosis Discharge Diagnosis (1) DKA, type 1: Status: Acute Code(s): E10.10 - Type 1 diabetes mellitus with ketoacidosis without coma (2) Hyperphosphatemia: Status: Acute Code(s): E83.39 - Other disorders of phosphorus metabolism (3) Acute dehydration: Status: Acute Code(s): E86.0 - Dehydration (4) FRANKLIN (acute kidney injury): Status: Acute Code(s): N17.9 - Acute kidney failure, unspecified (5) Noncompliance with medication regimen: Status: Acute Code(s): Z91.14 - Patient's other noncompliance with medication regimen (6) Acute hyperkalemia: Status: Acute Code(s): E87.5 - Hyperkalemia Plan 1. DKA secondary to noncompliance with medical regimen #2 uncontrolled type 1 diabetes secondary to poor compliance with medical regimen #3 moderate protein and caloric malnutrition in the context of chronic disease as evidenced by approximately 14% weight loss x1 year and moderate to severe muscle and fat wasting in the clavicle, orbitals, temporal region, arms, and legs.-Glucerna shake was advised and given to the patient as a supplement #4 noncompliance with medical regimen secondary to suspected cognitive limitations #5 acute dehydration secondary to DKA #6 chronic depression #7 acute metabolic encephalopathy secondary to #1 #8 [id number] Medications at Discharge Home Medications ferrous sulfate 325 mg (65 mg iron) tablet (FeroSul) 325 mg PO BREAKFAST IRON 03/05/21 insulin lispro 100 unit/mL subcutaneous pen 30 unit SQ TIDCM short acting insul in 03/05/21 sertraline 100 mg tablet 100 mg PO DAILY DEPRESSION 03/05/21 cyclobenzaprine 10 mg tablet 10 mg PO BID PRN muscle spasm #10 tabs 01/31/22 insulin glargine 100 unit/mL (3 mL) subcutaneous pen (Lantus Solostar U-100 Insulin) 50 unit (0.5 mL) subcut QPM #15 mL 03/03/22 Hospital Course Operations None Procedures None Summary of Care Provided Minutes Spent on Discharge: 32 Hospital Course: This 27-year-old white male was seen in the emergency room at [facility] with a complaint of feeling unwell, according to the patient, he had been out of regular insulin for several days, patient's mental status was foggy and obtaining a coherent story from the patient was difficult. Patient has been in the hospital several times for DKA in the past, it is felt that he probably has a learning disability-he does not stay compliant with his medications for his type 1 diabetes. Work-up in the emergency room revealed his blood sugar to be elevated, his anion gap was elevated, patient's white blood cell count was elevated, and the patient's blood sugar was elevated at 852. Patient was given IV fluids and an insulin drip was started in the emergency room, patient was admitted to ICU and given vigorous fluid administration, by the next day, patient's labs had normalized and he was more alert and appropria te. On 03/03/2022, patient was seen and examined: On examination he appeared alert and responded appropriately to simple questions, he was in no distress. Vital signs as documented. Skin warm and dry and without overt rashes. Neck without JVD, neck was supple, trachea midline, thyroid was normal. Lungs clear bilaterally, normal air movement was noted. Heart exam notable for regular rhythm, normal sounds and absence of murmurs, rubs or gallops. Abdomen unremarkable and without evidence of organomegaly, masses, or abdominal aortic enlargement. Bowel sounds are present, abdomen is not distended. Extremities nonedematous, no cyanosis was noted, no clubbing was noted. Neuro: Cranial nerves II through XII are grossly intact, no focal motor deficits were noted, sensation to light touch and pinprick intact, motor exam 5/5 throughout. Psych: Patient is alert and oriented x3, he does not appear anxious or depressed, he does not appear agitated. On 03/03/2022, patient was seen and examined and felt to be stable for discharge home, the overall prognosis was guarded due to the patient's continued noncompliance with his medical regimen. Weight / BMI Weight Weight: 56.8 kg Body Mass Index (BMI) 17.9 ABG / Lab / Microbiology Data Result Diagrams: 03/03/22 04:09 03/03/22 04:09 Laboratory: Laboratory Results - last 24 hr 03/02/22 10:24: POC Glucose > 500 H* 03/02/22 11:48: POC Glucose Cancelled 03/02/22 11:48: POC Glucose > 500 H* 03/02/22 18:10: Urine Color Yellow, Urine Clarity Clear, Urine pH 5.0, Ur Specific [place] 1.025, Urine Protein 30 H, Urine Glucose (UA) 1000 H, Urine Ketones 150 A*, Urine Occult Blood Negative, Urine Nitrite Negative, Urine Bilirubin Negative, Urine Urobilinogen Normal, Ur Leukocyte Esterase Negative, Urine RBC 0 SEEN, Urine WBC 0 SEEN, Ur Squamous Epith Cells 0 SEEN, Urine Bacteria 1+, Coarse Granular Casts 5-10 SEEN, Urine Mucus 0 SEEN 03/02/22 19:04: POC Glucose 111 H 03/02/22 19:58: POC Glucose 115 H 03/02/22 20:05: Sodium 140, Potassium 4.0, Chloride 113 H, Carbon Dioxide 18.0 L , Anion Gap 9, BUN 13, Creatinine 1.02, Estim Creat Clear Calc 88.63, Est GFR (MDRD) Af Amer 114, Est GFR (MDRD) Non-Af 95, BUN/Creatinine Ratio 12.7, Glucose 110 H, Calcium 7.8 L 03/02/22 21:02: POC Glucose 89 03/02/22 22:02: POC Glucose 81 03/02/22 23:01: POC Glucose 75 03/03/22 00:00: Sodium 141, Potassium 3.5, Chloride 114 H, Carbon Dioxide 21.0, Anion Gap 6, BUN 13, Creatinine 0.93, Estim Creat Clear Calc 97.21, Est GFR (MDRD) Af Amer 127, Est GFR (MDRD) Non-Af 105, BUN/Creatinine Ratio 14.0, Glucose 77, Calcium 7.8 L 03/03/22 00:00: POC Glucose 74 03/03/22 01:01: POC Glucose 101 03/03/22 02:05: POC Glucose 39 L* 03/03/22 02:30: POC Glucose 175 H 03/03/22 03:04: POC Glucose 109 H 03/03/22 04:02: POC Glucose 89 03/03/22 04:09: Sodium 142, Potassium 3.6, Chloride 113 H, Carbon Dioxide 21.0, Anion Gap 8, BUN 12, Creatinine 0.81, Estim Creat Clear Calc 111.61, Est GFR (MDRD) Af Amer 150, Est GFR (MDRD) Non-Af 124, BUN/Creatinine Ratio 14.9, Glucose 71 L, Calcium 7.9 L 03/03/22 04:09: WBC 14.3 H, RBC 4.58 L, Hgb 12.6 L, Hct 38.3 L, MCV 83.6 D, MCH 27.5, MCHC 32.9 D, RDW Std Deviation 43.5, RDW Coeff of Alec 14.3, Plt Count 345, MPV 9.4, Immature Gran % (Auto) 0.600, Neut % (Auto) 62.2, Lymph % (Auto) 27.0, [place] % (Auto) 8.2, Eos % (Auto) 1.7, Baso % (Auto) 0.3, Absolute Neuts (auto) 8.9 H, Absolute Lymphs (auto) 3.87, Nucleated RBC % 0 03/03/22 05:00: POC Glucose 59 L 03/03/22 06:04: POC Glucose 224 H D/C Instructions Discharge Diet: 2000 Calorie Control Diet Call your doctor if you observe: Shortness of breath, Dizziness and - (Nausea and Vomiting) Meaningful Use Info Meaningful Use Diagnoses (Choose all that apply): None applicable Discharge Plan Admission Admit Date/Time: 03/02/22 11:34 Primary Reason for Your Visit: DKA Attending Provider: Deangelo Farah Primary Care Provider: Deangelo Noel Discharge Orders/Prescriptions Prescriptions: New insulin glargine [Lantus Solostar U-100 Insulin] 100 unit/mL (3 mL) insulin pen 50 unit subcut QPM Qty: 15 0RF Continued ferrous sulfate [FeroSul] 325 mg (65 mg iron) tablet 325 mg PO BREAKFAST Label Comments: Take 1 tablet by mouth daily with breakfast. sertraline 100 mg tablet 100 mg PO DAILY Label Comments: Take 1 tablet by mouth once daily. insulin lispro 100 UNIT/ML insulin pen 30 unit SQ TIDCM Rx Instructions: +SLIDING SCALE cyclobenzaprine 10 mg tablet 10 mg PO BID PRN (Reason: muscle spasm) Qty: 10 0RF Discontinued Lantus U-100 Insulin 100 unit/mL Cartridge 40 unit SUBCUT DAILY Referrals / Follow Up: Deangelo Noel MD [Primary Care Provider] - 03/16/22 2:00 pm (with Meena Recinos) Disposition Disposition (needs filled in before D/C Order can be placed): Home, Self Care Charges/Coding Visit Charges Inpatient E&M: 81517 Disch Hosp
== END 2022-03-03 10:51 | disposition home or self-care (01) | DRG 420 ==
LOC: ED 11:46 → ICU 12:11
PROVIDERS: Admitting Provider Internal Medicine; Emergency Provider Emergency Medicine; PCP Family Medicine; Visit Provider Internal Medicine
DX: E10.10 Type 1 diabetes mellitus with ketoacidosis without coma (principal); G93.41 Metabolic encephalopathy; E44.0 Moderate protein-calorie malnutrition; N17.9 Acute kidney failure, unspecified; Z79.4 Long term (current) use of insulin; E83.39 Other disorders of phosphorus metabolism; E86.0 Dehydration; E87.5 Hyperkalemia; F17.210 Nicotine dependence, cigarettes, uncomplicated; F17.220 Nicotine dependence, chewing tobacco, uncomplicated; F32.9 Major depressive disorder, single episode, unspecified; R41.89 Other symptoms and signs involving cognitive functions and awareness; R94.5 Abnormal results of liver function studies; Z68.1 Body mass index [BMI] 19.9 or less, adult; Z91.14 Patient's other noncompliance with medication regimen; Z79.899 Other long term (current) drug therapy
CPT/HCPCS: 80048; 80053; 81001; 82009; 82550; 82962; 83735; 84100; 85025; 93005; 97802; 99285; J7030; A4216; J2405; J7799

== ENCOUNTER 2022-06-30 22:25 | Emergency (ER) | payer MEDICAID, SELFPAY ==
[2022-06-30 22:26] VITALS: BP 149/97; PULSE 135; RESP 20; TEMP 36.3; O2SAT 99; BMI 23.1
[2022-06-30 22:31] VITALS: BP 149/97; PULSE 132; RESP 12; TEMP 36.3; O2SAT 100
--- NOTE | 2022-06-30 22:48 | ED.VIS.CHEST ---
HPI History of Present Illness Chief Complaint: Chest Pain Informant: patient Onset/Context/Timing Onset: Days (5) Activity at onset: gradual Timing: Continuous Quality: Positive for Stabbing Location: Left Chest Worsened By: Exertion Relieved By: Rest Associated Symptoms: Positive for Nausea, Vomiting, Lightheadedness and Palpitations; Negative for Diaphoresis, Dyspnea, Cough, Fever or Acid Reflux Narrative Narrative: Patient presents with chest pain that has been constant for the last 5 days. Patient describes it as stabbing. Patient states it is over the left side of his chest. Patient states it is worse with any exertion. Patient states it is somewhat better with rest. Patient admits to some nausea and vomiting. Patient admits to some lightheadedness. Patient states he also feels like his heart is racing. Patient states he has had episodes of racing heartbeat in the past but states they have never been able to figure out what it is from. Patient denies any diaphoresis or shortness of breath. Patient is diabetic. Patient has a family history of mother with coronary artery disease at young age. Patient is a smoker. CVD Risk Factors: Positive for Diabetes, Family History 1' </=55 and Smoking; Negative for Hypertension or Hypercholesterolemia PE Risk Factors: Negative for Recent Travel/Surgery, Recent Immobilization, Prior DVT or PE, Cancer or OCP + Smoking + >/=35 PFSH PFSH Medical History Anxiety Depression H/O fracture of skull Learning difficulty due to cognitive limitations Septic shock Type 1 diabetes mellitus Type I diabetes mellitus, uncontrolled Home Medications ferrous sulfate 325 mg (65 mg iron) tablet (FeroSul) 325 mg PO BREAKFAST IRON 03/05/21 [History Last Taken 03/04/21] insulin lispro 100 unit/mL subcutaneous pen 30 unit SQ TIDCM short acting insulin 03/05/21 [History Last Taken 03/04/21] sertraline 100 mg tablet 100 mg PO DAILY DEPRESSION 03/05/21 [History Last Taken 03/04/21] cyclobenzaprine 10 mg tablet 10 mg PO BID PRN muscle spasm #10 tabs 01/31/22 [Rx Last Taken Unknown] insulin glargine 100 unit/mL (3 mL) subcutaneous pen (Lantus Solostar U-100 Insulin) 50 unit (0.5 mL) subcut QPM #15 mL 03/03/22 [Rx Last Taken Unknown] Allergy/AdvReac Type Severity Reaction Status Date / Time gluten AdvReac Nausea/Vom/ Verified 06/30/22 22:32 Diarrhea wheat AdvReac Nausea Verified 06/30/22 22:32 Family History Father Diabetes Surgical History H/O skin graft Social History household members: family Smoking Status: Current every day smoker tobacco type: cigarettes and smokeless tobacco Smokeless tobacco user: chewing tobacco second hand exposure: Yes alcohol intake: never substance use type: does not use ROS ROS ED Constitutional Constitutional ED: Denies chills or fever(s) Eyes Eyes: Denies blurry vision or change in vision ENT ENT ED: Denies rhinorrhea or sore throat Cardiovascular Cardiovascular: Reports chest pain, palpitations and racing heartbeat Respiratory/Chest Respiratory/Chest: Denies cough or dyspnea Gastrointestinal Gastrointestinal: Reports nausea and vomiting; Denies abdominal pain Genitourinary Genitourinary ED: Denies dysuria or hematuria Musculoskeletal Musculoskeletal: Denies back pain or neck pain Integumentary Denies abscess or rash Neurologic Neurologic: Denies headache(s) or weakness Allergic/Immunologic Allergic/Immunologic ED: Denies mouth swelling or urticaria EXAM Physical Exam Const Vital Signs: 06/30/22 22:26 06/30/22 22:31 06/30/22 22:32 Temperature 97.4 F L 97.4 F L Temperature Source Temporal Temporal Pulse Rate 135 H 132 H Respiratory Rate 20 H 12 Respiratory Effort Normal Non-Labored Blood Pressure 149/97 H 149/97 H Blood Pressure Mean 114 114 Pulse Ox 99 100 Oxygen Delivery Method Room Air Room Air 06/30/22 23:09 07/01/22 00:34 07/01/22 01:29 Temperature Temperature Source Pulse Rate 147 H 137 H Respiratory Rate 19 H 16 Respiratory Effort Blood Pressure 133/100 H 123/85 H Blood Pressure Mean 111 97 Pulse Ox 100 100 100 Oxygen Delivery Method Room Air Room Air Room Air Positive well nourished and well developed General Appearance ED: well developed and NAD HEENT normocephalic and atraumatic Eyes PERRL and EOMs intact bilaterally Neck supple and no JVD Chest Wall palpation of chest normal Resp normal respiratory effort and clear to auscultation bilaterally Effort and Inspection: Negative for respiratory distress Cardio regular rhythm and no murmurs Rate: tachycardic GI normal to inspection, nondistended, normoactive bowel sounds, soft to palpation, non-tender and non-distended Extremity normal to inspection General Extremety ED: Negative for edema or tenderness General Extremity: Negative for edema Neuro oriented x3, CN's II-XII intact bilaterally and no sensory deficits noted Sensorium / Orientation: awake and alert Motor Exam: strength 5/5 throughout Psych mental status grossly normal Heart Score History: Slightly/Non-Suspicious ECG: Normal Age: </= 45 years Risk Factors: >/= 3 Risk Factors or History of CAD Score: 2 MDM MDM MDM Narrative Medical decision making narrative: Patient was given aspirin here. EKG was obtained. On my interpretation, it showed a sinus tachycardia with a rate of 130. MA interval, QRS interval, and QTc intervals were all normal. [place] was normal. There are no acute ST or T wave changes. CBC shows a slight leukocytosis of 12.1. D-dimer was normal. Basic metabolic profile showed a BUN of 19. Glucose was 569. Anion gap was normal. CO2 was normal. High-sensitivity troponin was normal. Serum acetone was obtained and was moderate. Patient was given IV fluids. Patient was given a dose of Humalog. Repeat BGT was obtained and was 85. Patient is feeling better on reevaluation. Patient is still tachycardic. Patient was instructed to drink plenty of fluids. Patient was instructed to follow-up with his primary care physician in 5 to 7 days. Patient understood and was agreeable with the plan. All questions were answered. Lab Data Attestation: I reviewed the patient's lab results. Labs: Laboratory Results - last 24 hr 06/30/22 06/30/22 06/30/22 22:45 22:45 22:45 WBC 12.1 H RBC 5.32 Hgb 14.0 Hct 42.7 MCV 80.3 MCH 26.3 L MCHC 32.8 RDW Std Deviation 39.7 RDW Coeff of Alec 13.7 Plt Count 456 H MPV 10.6 Immature Gran % (Auto) 0.700 Neut % (Auto) 48.9 Lymph % (Auto) 38.4 Delta % (Auto) 6.0 Eos % (Auto) 5.2 H Baso % (Auto) 0.8 Absolute Neuts (auto) 5.9 Absolute Lymphs (auto) 4.64 H Nucleated RBC % 0 D-Dimer Quant (PE/DVT) < 0.27 L Sodium 134 L Potassium 4.2 Chloride 97 L Carbon Dioxide 22.0 Anion Gap 15 BUN 19 H Creatinine 1.20 Estim Creat Clear Calc 97.16 Est GFR (MDRD) Af Amer 95 Est GFR (MDRD) Non-Af 78 BUN/Creatinine Ratio 15.8 Glucose 569 H* Calcium 8.8 Troponin I High Sens 4 Acetone Level 07/01/22 00:15 WBC RBC Hgb Hct MCV MCH MCHC RDW Std Deviation RDW Coeff of Alec Plt Count MPV Immature Gran % (Auto) Neut % (Auto) Lymph % (Auto) Delta % (Auto) Eos % (Auto) Baso % (Auto) Absolute Neuts (auto) Absolute Lymphs (auto) Nucleated RBC % D-Dimer Quant (PE/DVT) Sodium Potassium Chloride Carbon Dioxide Anion Gap BUN Creatinine Estim Creat Clear Calc Est GFR (MDRD) Af Amer Est GFR (MDRD) Non-Af BUN/Creatinine Ratio Glucose Calcium Troponin I High Sens Acetone Level MODERATE H Radiography Diagnostic Testing: Clinical Impression(s) from Imaging Studies Chest X-Ray 06/30/22 23:07 IMPRESSION: Hyperexpanded lungs, correlate clinically for asthma and/or smoking history. Electronically Signed: Deangelo Lyle MD at 23:29 EST , EKG Initial EKG: Attestation: I personally reviewed and interpreted this EKG as follows: Interpretation: No Acute Injury Pattern and Sinus Tachycardia (130) Prior EKG tracings: available for review Prior: Unchanged (03/02/2022) Discharge Plan Triage Chief Complaint: Chest Pain ED Provider: Darren Zarate Dx/Rx/DC Orders Clinical Impression: Chest pain, Palpitations, Hyperglycemia Instructions: ED Chest Pain, Uncertain Cause, ED Diabetic Hyperglycemia Prescriptions: No Action ferrous sulfate [FeroSul] 325 mg (65 mg iron) tablet 325 mg PO BREAKFAST Label Comments: Take 1 tablet by mouth daily with breakfast. sertraline 100 mg tablet 100 mg PO DAILY Label Comments: Take 1 tablet by mouth once daily. insulin lispro 100 UNIT/ML insulin pen 30 unit SQ TIDCM Rx Instructions: +SLIDING SCALE cyclobenzaprine 10 mg tablet 10 mg PO BID PRN (Reason: muscle spasm) Qty: 10 0RF insulin glargine [Lantus Solostar U-100 Insulin] 100 unit/mL (3 mL) insulin pen 50 unit subcut QPM Qty: 15 0RF Primary Care Provider: Deangelo Noel Referrals: Deangelo Noel MD [Primary Care Provider] - 5-7 Days Disposition Disposition: Home, Self Care
--- NOTE | 2022-06-30 22:54 | EKG12_ITS ---
Test Reason : DYSRHYTHMIA Blood Pressure : / mmHG Vent. Rate : 130 BPM Atrial Rate : 130 BPM P-R Int : 138 ms QRS Dur : 080 ms QT Int : 294 ms P-R-T Axes : 067 069 059 degrees QTc Int : 432 ms Sinus tachycardia Otherwise normal ECG Confirmed by NESTOR MIRELES, ERIC ([id number]), brands editor COREY MICHAEL ([id number]) on 07/01/2022 9:14:25 AM Referred By: CELIA Confirmed By:ERIC BAEZ MD
[2022-06-30 23:06] LABS: Absolute Lymphocyte Count 4.64 X10^3/uL (0.83-4.51); Absolute Neutrophil Count 5.9 X10^3/uL (2.0-7.7); Basophil% 0.8 % (0-1); Eosinophil# 0.63 X10^3/uL; Eosinophils% 5.2 % (0-5); Hematocrit 42.7 % (40-54); Lymphocyte # 4.64 X10^3/ul (0.83-4.51); Lymphocyte % 38.4 % (19-41); Mean Corp Hgb Conc 32.8 g/dL (32-36); Mean Corpuscular Hgb 26.3 pg (27.0-32.0); Mean Corpuscular Volume 80.3 fL (80-94); Mean Platelet Vol. 10.6 fl (6.2-12.0); Monocyte# 0.73 X10^3/uL; NRBC Flagged by Analyzer 0 % (0-5); Neutrophil # 5.89 X10^3/uL (2.7-7.7); Neutrophil % 48.9 % (47-70); Platelet Count 456 K/mm3 (150-450); RBC Distribution Width CV 13.7 % (11.6-14.6); RBC Distribution Width SD 39.7 fl (35.1-43.9); Red Blood Count 5.32 M/mm3 (4.6-6.2); White Blood Count 12.1 K/mm3 (4.4-11.0)
--- NOTE | 2022-06-30 23:07 | RAD_ITS ---
INDICATION: chest pain EXAMINATION/TECHNIQUE: X-RAY - XR Chest 1 View COMPARISON: Chest x-ray from 11/25/2020 FINDINGS: LINES/DEVICES: None. LUNGS: Hyperexpanded lungs again noted. No pulmonary edema or focal airspace consolidation. No sizable pleural effusion. No pneumothorax detected. MEDIASTINUM AND CARDIOVASCULAR STRUCTURES: Heart size within normal limits. Mediastinal contours unremarkable. BONES AND SOFT TISSUES: No acute findings. RAD/Chest 1 View (Portable) IMPRESSION: Hyperexpanded lungs, correlate clinically for asthma and/or smoking history. Electronically Signed: Deangelo Lyle MD at 23:29 EST ,
[2022-06-30 23:09] VITALS: O2SAT 100
[2022-06-30] MEDS: Aspirin 81 MG TAB.CHEW 324 MG PO (23:13)
[2022-06-30 23:16] LABS: D-Dimer Quantitative (DVT/PE) < 0.27 FEU/ug/m (0.27-0.49)
[2022-06-30 23:45] LABS: Anion Gap 15 (5-15); BUN 19 mg/dL (7-18); BUN/Creat Ratio 15.8 RATIO (10-20); Calcium,Total 8.8 mg/dL (8.5-10.1); Chloride 97 mmol/L (98-107); EST Glomerular Filtration Rate 78 mL/min (>60); Est Glom Filt Rate - Afr Amer 95 mL/min (>60); Estimated Creatinine Clearance 97.16 ml/min; Glucose 569 mg/dL (74-106); Potassium 4.2 mmol/L (3.5-5.1); Sodium Level 134 mmol/L (136-145); Troponin-I HS 4 pg/mL (3.0-78.0)
[2022-07-01] MEDS: 0.9% Normal Saline 1,000 ML 1000 ML IV ×2 (00:06→01:27)
[2022-07-01 00:34] VITALS: BP 133/100; PULSE 147; RESP 19; O2SAT 100
[2022-07-01] MEDS: Insulin Lispro 100 UNIT/ML INSULN.PEN 15 UNIT SC (01:27)
[2022-07-01 01:29] VITALS: BP 123/85; PULSE 137; RESP 16; O2SAT 100
[2022-07-01 03:05] LABS: Bedside Glucose 85 mg/dL (74-106)
[2022-07-01 03:13] VITALS: BP 123/85; PULSE 135; RESP 16; O2SAT 100
== END 2022-07-01 03:14 | disposition home or self-care (01) ==
PROVIDERS: Emergency Provider Emergency Medicine; PCP Family Medicine; Visit Provider Emergency Medicine
DX: R07.9 Chest pain, unspecified (principal); E10.65 Type 1 diabetes mellitus with hyperglycemia; Z79.4 Long term (current) use of insulin; R00.2 Palpitations; R11.2 Nausea with vomiting, unspecified; F17.210 Nicotine dependence, cigarettes, uncomplicated; Z79.899 Other long term (current) drug therapy; R00.0 Tachycardia, unspecified
CPT/HCPCS: 71045; 80048; 82009; 82962; 84484; 85025; 85379; 93005; 96360; 96361; 99285; J7030; A4216

== ENCOUNTER 2022-07-07 14:40 | Emergency (ER) | payer MEDICAID, SELFPAY ==
[2022-07-07 14:41] VITALS: BP 119/83; PULSE 112; RESP 16; TEMP 36.6; O2SAT 98; BMI 23.3
[2022-07-07 16:22] LABS: Absolute Lymphocyte Count 1.75 X10^3/uL (0.83-4.51); Absolute Neutrophil Count 4.7 X10^3/uL (2.0-7.7); Basophil# 0.03 X10^3/uL; Basophil% 0.4 % (0-1); Eosinophil# 0.03 X10^3/uL; Eosinophils% 0.4 % (0-5); Hematocrit 43.6 % (40-54); Hemoglobin 14.3 g/dL (13.0-16.5); Lymphocyte # 1.75 X10^3/ul (0.83-4.51); Lymphocyte % 23.2 % (19-41); Mean Corp Hgb Conc 32.8 g/dL (32-36); Mean Corpuscular Hgb 26.6 pg (27.0-32.0); Mean Platelet Vol. 11.2 fl (6.2-12.0); Monocyte# 0.98 X10^3/uL; NRBC Flagged by Analyzer 0 % (0-5); Neutrophil # 4.73 X10^3/uL (2.7-7.7); Neutrophil % 62.7 % (47-70); Platelet Count 260 K/mm3 (150-450); Red Blood Count 5.38 M/mm3 (4.6-6.2); White Blood Count 7.5 K/mm3 (4.4-11.0)
[2022-07-07 16:30] LABS: D-Dimer Quantitative (DVT/PE) 0.28 FEU/ug/m (0.27-0.49)
--- NOTE | 2022-07-07 16:32 | ED.VIS.CHEST ---
HPI <ZAIN Lyons - Last Filed: 07/07/22 22:06> History of Present Illness Chief Complaint: Chest Other Narrative Narrative: Patient presents today with constant left sided nonradiating chest pain that he has had for almost 2 weeks. He states the pain is better with rest and somewhat worsened with exertion. He also admits to a cough, fatigue, lightheadedness, and some shortness of breath. Patient denies fever, nausea, vomiting, and diarrhea. Patient has a history of diabetes. Patient was seen 06/30/22 for similar symptoms. He was ultimately discharged during this visit was told to follow-up with PCP in 5 to 7 days. Patient reports he had an appointment with his PCP today, but his PCP told him to come here due to his symptoms. PFSH <ZAIN Lyons - Last Filed: 07/07/22 22:06> [facility] Medical History Anxiety Depression H/O fracture of skull Learning difficulty due to cognitive limitations Septic shock Type 1 diabetes mellitus Type I diabetes mellitus, uncontrolled Home Medications ferrous sulfate 325 mg (65 mg iron) tablet (FeroSul) 325 mg PO BREAKFAST IRON 03/05/21 [History Last Taken 03/04/21] insulin lispro 100 unit/mL subcutaneous pen 30 unit SQ TIDCM short acting insulin 03/05/21 [History Last Taken 03/04/21] sertraline 100 mg tablet 100 mg PO DAILY DEPRESSION 03/05/21 [History Last Taken 03/04/21] insulin glargine 100 unit/mL (3 mL) subcutaneous pen (Lantus Solostar U-100 Insulin) 50 unit (0.5 mL) subcut QPM #15 mL 03/03/22 [Rx Last Taken Unknown] Allergy/AdvReac Type Severity Reaction Status Date / Time gluten AdvReac Nausea/Vom/ Verified 07/07/22 14:45 Diarrhea wheat AdvReac Nausea Verified 07/07/22 14:45 Family History Father Diabetes Surgical History H/O skin graft Social History household members: family Smoking Status: Current every day smoker tobacco type: cigarettes and smokeless tobacco Smokeless tobacco user: chewing tobacco second hand exposure: Yes alcohol intake: never substance use type: does not use ROS <ZAIN Lyons - Last Filed: 07/07/22 22:06> ROS ED Constitutional Constitutional ED: Denies chills, fever(s) or sweats Eyes Eyes: Denies blurry vision or change in vision ENT ENT ED: Denies rhinorrhea or sore throat Cardiovascular Cardiovascular: Reports chest pain and racing heartbeat Respiratory/Chest Respiratory/Chest: Reports cough and shortness of breath with exertion; Denies dyspnea, dyspnea on exertion, shortness of breath at rest or wheezing Gastrointestinal Gastrointestinal: Denies abdominal pain, diarrhea, nausea or vomiting Musculoskeletal Musculoskeletal: Denies myalgias or neck pain Integumentary Denies abscess, Abrasions or rash Neurologic Neurologic: Denies headache(s) or weakness EXAM <ZAIN Lyons - Last Filed: 07/07/22 22:06> Physical Exam Const Vital Signs: 07/07/22 14:41 07/07/22 15:29 07/07/22 17:14 Temperature 98 F Temperature Source Temporal Pulse Rate 112 H Respiratory Rate 16 18 Respiratory Effort Short of Breath Blood Pressure 119/83 H 124/82 H Blood Pressure Mean 95 96 Pulse Ox 98 Oxygen Delivery Method Room Air 07/07/22 17:55 07/07/22 18:59 07/07/22 19:34 Temperature Temperature Source Pulse Rate 114 H Respiratory Rate 15 Respiratory Effort Blood Pressure 127/84 H 95/84 H 127/93 H Blood Pressure Mean 98 87 104 Pulse Ox 96 Oxygen Delivery Method Room Air 07/07/22 20:35 Temperature Temperature Source Pulse Rate 114 H Respiratory Rate 15 Respiratory Effort Blood Pressure 127/93 H Blood Pressure Mean Pulse Ox 96 Oxygen Delivery Method Positive well nourished and unkempt General Appearance ED: unkempt HEENT Reports moist mucous membranes normocephalic and atraumatic; Negative for tenderness Eyes PERRL and EOMs intact bilaterally Neck no lymphadenopathy and supple Chest Wall inspection of chest normal Resp normal respiratory effort and clear to auscultation bilaterally Cardio regular rate, regular rhythm and no murmurs GI soft to palpation, non-tender, non-distended and no masses; Negative for hepatosplenomegaly Extremity normal to inspection Neuro oriented x3, CN's II-XII intact bilaterally, no sensory deficits noted and gait normal Sensorium / Orientation: awake and alert Motor Exam: strength 5/5 throughout Psych mental status grossly normal Appearance: unkempt Skin no rashes or lesions noted and no wounds <Dr. Sandy Mcclain MD - Last Filed: 07/08/22 00:39> Physical Exam Const Vital Signs: 07/07/22 14:41 07/07/22 15:29 07/07/22 17:14 Temperature 98 F Temperature Source Temporal Pulse Rate 112 H Respiratory Rate 16 18 Respiratory Effort Short of Breath Blood Pressure 119/83 H 124/82 H Blood Pressure Mean 95 96 Pulse Ox 98 Oxygen Delivery Method Room Air 07/07/22 17:55 07/07/22 18:59 07/07/22 19:34 Temperature Temperature Source Pulse Rate 114 H Respiratory Rate 15 Respiratory Effort Blood Pressure 127/84 H 95/84 H 127/93 H Blood Pressure Mean 98 87 104 Pulse Ox 96 Oxygen Delivery Method Room Air 07/07/22 20:35 Temperature Temperature Source Pulse Rate 114 H Respiratory Rate 15 Respiratory Effort Blood Pressure 127/93 H Blood Pressure Mean Pulse Ox 96 Oxygen Delivery Method MDM <ZAIN Lyons - Last Filed: 07/07/22 22:06> [facility] Narrative Medical decision making narrative: Patient's glucose was 376 so he has been given a liter of fluids and 8 units of Humalog. COVID came back positive and it is very consistent with his symptoms. Patient was given an albuterol inhaler and was instructed on how to use it. Patient stated he has been out of his insulin so I have called patient's pharmacy and they let me know that his PCP filled his insulin prescriptions today. I have educated patient on the importance of taking his insulin as prescribed. I have given patient return instructions such as difficulty breathing or shortness of breath or worsening symptoms. I educated patient on supportive care measures. I am comfortable with patient discharging home and patient is comfortable with plan. Lab Data Attestation: I reviewed the patient's lab results. Lab results narrative: Troponin normal. Glucose 376. D-dimer normal. Repeat glucose 158 after eating. Labs: Laboratory Results - last 24 hr 07/07/22 07/07/22 07/07/22 16:02 16:02 16:02 WBC 7.5 RBC 5.38 Hgb 14.3 Hct 43.6 MCV 81.0 MCH 26.6 L MCHC 32.8 RDW Std Deviation 41.0 RDW Coeff of Alec 14.0 Plt Count 260 MPV 11.2 Immature Gran % (Auto) 0.300 Neut % (Auto) 62.7 Lymph % (Auto) 23.2 [place] % (Auto) 13.0 H Eos % (Auto) 0.4 Baso % (Auto) 0.4 Absolute Neuts (auto) 4.7 Absolute Lymphs (auto) 1.75 Nucleated RBC % 0 D-Dimer Quant (PE/DVT) 0.28 Sodium 133 L Potassium 3.6 Chloride 95 L Carbon Dioxide 29.0 Anion Gap 9 BUN 10 Creatinine 1.00 Estim Creat Clear Calc 109.25 Est GFR (MDRD) Af Amer 117 Est GFR (MDRD) Non-Af 97 BUN/Creatinine Ratio 10.0 Glucose 376 H Calcium 8.8 Troponin I High Sens 4 POC Glucose 07/07/22 18:58 WBC RBC Hgb Hct MCV MCH MCHC RDW Std Deviation RDW Coeff of Alec Plt Count MPV Immature Gran % (Auto) Neut % (Auto) Lymph % (Auto) [place] % (Auto) Eos % (Auto) Baso % (Auto) Absolute Neuts (auto) Absolute Lymphs (auto) Nucleated RBC % D-Dimer Quant (PE/DVT) Sodium Potassium Chloride Carbon Dioxide Anion Gap BUN Creatinine Estim Creat Clear Calc Est GFR (MDRD) Af Amer Est GFR (MDRD) Non-Af BUN/Creatinine Ratio Glucose Calcium Troponin I High Sens POC Glucose 158 H Radiography Diagnostic Testing: Clinical Impression(s) from Imaging Studies Chest X-Ray 07/07/22 16:43 IMPRESSION: Normal x-ray examination of the chest. Electronically Signed: Guillermo Espino MD at 16:53 EST , Chest x-ray was normal. This has also been reviewed by attending ED physician. EKG Initial EKG: Attestation: I personally reviewed and interpreted this EKG as follows: Comments: 109 bpm. Tachycardia, otherwise normal EKG. No ST elevation, no signs of cardiac ischemia. This EKG has also been reviewed by attending ED physician. Prior EKG tracings: available for review Prior: Unchanged <Dr. Sandy Mcclain MD - Last Filed: 07/08/22 00:39> [facility] Lab Data Labs: Laboratory Results - last 24 hr 07/07/22 07/07/22 07/07/22 16:02 16:02 16:02 WBC 7.5 RBC 5.38 Hgb 14.3 Hct 43.6 MCV 81.0 MCH 26.6 L MCHC 32.8 RDW Std Deviation 41.0 RDW Coeff of Alec 14.0 Plt Count 260 MPV 11.2 Immature Gran % (Auto) 0.300 Neut % (Auto) 62.7 Lymph % (Auto) 23.2 [place] % (Auto) 13.0 H Eos % (Auto) 0.4 Baso % (Auto) 0.4 Absolute Neuts (auto) 4.7 Absolute Lymphs (auto) 1.75 Nucleated RBC % 0 D-Dimer Quant (PE/DVT) 0.28 Sodium 133 L Potassium 3.6 Chloride 95 L Carbon Dioxide 29.0 Anion Gap 9 BUN 10 Creatinine 1.00 Estim Creat Clear Calc 109.25 Est GFR (MDRD) Af Amer 117 Est GFR (MDRD) Non-Af 97 BUN/Creatinine Ratio 10.0 Glucose 376 H Calcium 8.8 Troponin I High Sens 4 POC Glucose 07/07/22 18:58 WBC RBC Hgb Hct MCV MCH MCHC RDW Std Deviation RDW Coeff of Alec Plt Count MPV Immature Gran % (Auto) Neut % (Auto) Lymph % (Auto) [place] % (Auto) Eos % (Auto) Baso % (Auto) Absolute Neuts (auto) Absolute Lymphs (auto) Nucleated RBC % D-Dimer Quant (PE/DVT) Sodium Potassium Chloride Carbon Dioxide Anion Gap BUN Creatinine Estim Creat Clear Calc Est GFR (MDRD) Af Amer Est GFR (MDRD) Non-Af BUN/Creatinine Ratio Glucose Calcium Troponin I High Sens POC Glucose 158 H Radiography Diagnostic Testing: Clinical Impression(s) from Imaging Studies Chest X-Ray 07/07/22 16:43 IMPRESSION: Normal x-ray examination of the chest. Electronically Signed: Guillermo Espino MD at 16:53 EST , Treatment and Re-Evaluation Narrative: Patient seen and evaluated with VENTURA. I personally interviewed and examined the patient. I was involved in all aspects of patient's orders, interpretation of results, and treatment. Patient presents with nearly 2-week history of cough, congestion, fatigue, left-sided chest pain. Patient was seen previously for similar and had negative work-up. He was not tested for COVID. Patient does admit that he does not know what his blood sugars have been running. Patient lying in bed no acute distress. He is nontoxic-appearing. Head neck examination unremarkable. Heart is slightly tachycardic but regular. Lung sounds are grossly clear. Abdomen is soft with no focal tenderness. Active bowel sounds are noted. Skin examination reveals dirty hands with sores on his knuckles. No sign of secondary infection. Lab work obtained along with chest x-ray and EKG. COVID and influenza swabs obtained. CBC reveals normal white count. D-dimer is negative. Chemistry studies significant for an elevated glucose of 376. COVID test returns positive. Chest x-ray per my interpretation reveals no focal infiltrate. Radiology interpretation is reviewed. EKG is sinus tach with no sign of acute ischemia. Patient is given a liter of IV fluid and 8 units of subcu insulin. Repeat blood sugar is in the 150s. Patient is nearly 2 weeks into his symptoms. Supportive care will be continued. Return instructions given. Discharge Plan Triage Chief Complaint: Chest Other Other Complaint: Cough ED Midlevel Provider: Lourdes Metz ED Provider: Sandy Mcclain Dx/Rx/DC Orders Clinical Impression: COVID-19, Hyperglycemia, Diabetes mellitus, Chest pain Instructions: Coronavirus Disease 2019 (COVID-19): Caring for Yourself or Others Prescriptions: No Action ferrous sulfate [FeroSul] 325 mg (65 mg iron) tablet 325 mg PO BREAKFAST Label Comments: Take 1 tablet by mouth daily with breakfast. sertraline 100 mg tablet 100 mg PO DAILY Label Comments: Take 1 tablet by mouth once daily. insulin lispro 100 UNIT/ML insulin pen 30 unit SQ TIDCM Rx Instructions: +SLIDING SCALE insulin glargine [Lantus Solostar U-100 Insulin] 100 unit/mL (3 mL) insulin pen 50 unit subcut QPM Qty: 15 0RF Primary Care Provider: Deangelo Noel Referrals: Deangelo Noel MD [Primary Care Provider] - 1 Week if not improving Activity Restrictions/Additional Instructions: Return if symptoms worsen or if you develop shortness of breath or difficulty breathing. Disposition Disposition: Home, Self Care Discharge Date/Time: 07/07/22 20:36
[2022-07-07 16:37] LABS: Anion Gap 9 (5-15); BUN 10 mg/dL (7-18); Calcium,Total 8.8 mg/dL (8.5-10.1); Chloride 95 mmol/L (98-107); EST Glomerular Filtration Rate 97 mL/min (>60); Est Glom Filt Rate - Afr Amer 117 mL/min (>60); Estimated Creatinine Clearance 109.25 ml/min; Glucose 376 mg/dL (74-106); Potassium 3.6 mmol/L (3.5-5.1); Sodium Level 133 mmol/L (136-145); Troponin-I HS 4 pg/mL (3.0-78.0)
--- NOTE | 2022-07-07 16:43 | RAD_ITS ---
STUDY: X-RAY CHEST REASON FOR EXAM: Male, 27 years old. chest pain TECHNIQUE: AP portable COMPARISON: 06/30/2022. FINDINGS: The lungs are clear and expanded. There is no demonstrated pleural abnormality. Normal size heart. Normal mediastinum and nikolas. Normal visualized pulmonary arteries. Normal visualized aortic arch and descending thoracic aorta. Normal visualized thoracic spine. Normal visualized ribs, clavicles, and shoulders. There is no demonstrated abnormality of the visualized soft tissue structures of the upper abdomen. No significant change since prior exam RAD/Chest 1 View (Portable) IMPRESSION: Normal x-ray examination of the chest. Electronically Signed: Guillermo Espino MD at 16:53 EST ,
[2022-07-07] MEDS: 0.9% Normal Saline 1,000 ML 999 ML IV ×2 (17:07→19:33)
[2022-07-07 17:14] VITALS: BP 124/82; RESP 18
[2022-07-07 17:55] VITALS: BP 127/84
[2022-07-07 18:59] VITALS: BP 95/84
[2022-07-07 19:21] LABS: Bedside Glucose 158 mg/dL (74-106)
[2022-07-07 19:34] VITALS: BP 127/93; PULSE 114; RESP 15; O2SAT 96
[2022-07-07] MEDS: Albuterol Sulfate 8 gm Inhaler (60 puffs) 2 PUFF INHALATION (20:14)
[2022-07-07 20:35] VITALS: BP 127/93; PULSE 114; RESP 15; O2SAT 96
== END 2022-07-07 20:36 | disposition home or self-care (01) ==
PROVIDERS: Physician Assistant; Emergency Provider Emergency Medicine; PCP Family Medicine; Visit Provider Emergency Medicine
DX: U07.1 COVID-19 (principal); E10.65 Type 1 diabetes mellitus with hyperglycemia; Z79.4 Long term (current) use of insulin; F17.210 Nicotine dependence, cigarettes, uncomplicated; R07.9 Chest pain, unspecified; F32.A Depression, unspecified; F41.9 Anxiety disorder, unspecified
CPT/HCPCS: 71045; 80048; 82962; 84484; 85025; 85379; 87428; 93005; 94640; 96361; 96374; 99283; J7030; A4216

== ENCOUNTER 2022-08-18 09:32 | Inpatient (IN) | payer MEDICAID, SELFPAY ==
[2022-08-18] VITALS (19 sets, daily range): BP systolic 108–153; BP diastolic 72–106; PULSE 123–149; RESP 15–24; TEMP 35.5–36.8; O2SAT 96–100; BMI 22.9; BMI 20.3
--- NOTE | 2022-08-18 09:40 | ED.RN ---
ACCU CHECK READS HIGH. DR TINOCO
--- NOTE | 2022-08-18 09:46 | RAD_ITS ---
STUDY: X-RAY CHEST REASON FOR EXAM: Male, 27 years old. Tachypnea, vomiting TECHNIQUE: Single AP portable view of the chest. COMPARISON: Comparison is made with prior study dated 07/07/2022. FINDINGS: EKG electrodes are seen. The lungs are clear and expanded. There is no demonstrated pleural abnormality. Normal size heart. Normal mediastinum and nikolas. Normal visualized pulmonary arteries. Normal visualized aortic arch and descending thoracic aorta. Normal visualized thoracic spine. Normal visualized ribs, clavicles, and shoulders. There is no demonstrated abnormality of the visualized soft tissue structures of the upper abdomen. RAD/Chest 1 View (Portable) IMPRESSION: Normal x-ray examination of the chest. Electronically Signed: David Babin MD at 10:39 EST ,
--- NOTE | 2022-08-18 09:48 | EDS_ITS ---
HPI History of Present Illness Chief Complaint: Nausea/Vomiting Informant: patient Narrative Narrative: Patient is a 27-year-old male with history of medication noncompliance as well as DKA secondary to type 1 diabetes mellitus presenting with generalized weakness, nausea and vomiting. He states he has been feeling well the past few days. He is not been taking his insulin because not been feeling well. He is having multiple episodes of vomiting and is now vomiting up dark brown material as well as blood. He did try to take a Tums before coming in. He denies any pain. Patient is slightly evasive and does not give further details. He states he feels like he is in DKA. [facility] Medical History Anxiety Depression H/O fracture of skull Learning difficulty due to cognitive limitations Septic shock Type 1 diabetes mellitus Type I diabetes mellitus, uncontrolled Home Medications ferrous sulfate 325 mg (65 mg iron) tablet (FeroSul) 325 mg PO DAILY supplement 03/05/21 [History Last Taken 03/04/21] insulin lispro 100 unit/mL subcutaneous pen 30 unit SQ TIDCM short acting insulin 03/05/21 [History Last Taken 03/04/21] sertraline 100 mg tablet 100 mg PO DAILY DEPRESSION 03/05/21 [History Last Taken 03/04/21] insulin glargine 100 unit/mL (3 mL) subcutaneous pen (Lantus Solostar U-100 Insulin) 50 unit subcut QPM diabetes 08/18/22 [History Last Taken Unknown] Allergy/AdvReac Type Severity Reaction Status Date / Time gluten AdvReac Nausea/Vom/ Verified 08/18/22 09:37 Diarrhea wheat AdvReac Nausea Verified 08/18/22 09:37 Family History Father Diabetes Surgical History H/O skin graft Social History household members: family Smoking Status: Current every day smoker tobacco type: smokeless tobacco Smokeless tobacco user: chewing tobacco second hand exposure: Yes alcohol intake: never substance use type: does not use ROS ROS ED Constitutional Constitutional ED: Reports chills Eyes Eyes: Denies change in vision ENT ENT ED: Denies sore throat Cardiovascular Cardiovascular: Denies chest pain Respiratory/Chest Respiratory/Chest: Denies cough or dyspnea Gastrointestinal Gastrointestinal: Reports abdominal pain, nausea and vomiting; Denies diarrhea or melena Musculoskeletal Musculoskeletal: Denies arthralgias or myalgias Integumentary Denies rash Neurologic Neurologic: Reports weakness Hematologic/Lymphatic Hematologic/Lymphatic: Denies easy bleeding or easy bruising EXAM Physical Exam Const Vital Signs: 08/18/22 09:33 08/18/22 09:37 08/18/22 10:37 Temperature 96 F L 97 F L 96.6 F L Temperature Source Temporal Temporal Temporal Pulse Rate 135 H 134 H 123 H Respiratory Rate 24 H 22 H 18 Blood Pressure 118/83 H 118/83 H 133/99 H Blood Pressure Mean 94 94 110 Pulse Ox 97 98 97 Oxygen Delivery Method Room Air Room Air Room Air Positive well nourished and well developed General Appearance ED: well developed and pallor HEENT Reports dry mucous membranes HEENT Narrative: Dried brown substance around mouth and upper chest consistent with coffee-ground emesis Negative for trauma Mouth ED: Yes dry mucous membranes Mouth: dry mucous membranes Eyes PERRL and EOMs intact bilaterally Neck supple Chest Wall inspection of chest normal and palpation of chest normal Resp Resp Narrative: Tachypneic with Kussmaul respirations Cardio regular rhythm Rate: tachycardic GI normal to inspection, nondistended, normoactive bowel sounds and non-tender Extremity normal to inspection Neuro Neuro Narrative: Somnolent, no focal deficits appreciated Sensorium / Orientation: alert Motor Exam: general weakness Psych Psych Narrative: Withdrawn Mood & Affect: depressed Skin no rashes or lesions noted and no wounds General Skin Exam: pallor MDM MDM MDM Narrative Medical decision making narrative: Patient evaluated for generalized weakness, vomiting what looks to be coffee- ground emesis and hyperglycemia. Patient's presentation is highly consistent w ith DKA and DKA work-up was initiated. Chart review from patient's prior inpatient discharge summary in February shows that he was again admitted for DKA for noncompliance with medical regimen has moderat e protein/caloric malnutrition. Patient's lab work is highly consistent with DKA. He has a leukocytosis of uncertain significance but likely stress-induced, hemoglobin mildly elevated 16.4 I suspect is hemoconcentrated. His platelets are also elevated at 478. BMP shows pseudohyponatremia with a sodium of 128, normal potassium 5.0, bicarb of 7 with an elevated anion gap of 29 and an acute kidney injury with a creatinine of 2.27. Patient has elevation of his phosphorus and magnesium. Lactate elevated at 3.0 and VBG consistent with metabolic acidosis with a pH of 7.1. Patient is given 2 L of IV fluid in the ER. Is given a bolus of IV Protonix for possible GI bleed could be associated with a stress ulcer/Radha- Yoder tears from repetitive vomiting. He started on insulin drip. Discussed with Dr. Cruz, hospitalist and patient be admitted to the ICU. Patient is given Zofran for his nausea in the ER. I suspect his trigger for his DKA is again associated with noncompliance. I question patient would benefit from a legal guardian given his poorly controlled and chronic insulin-dependent diabetes mellitus. Lab Data Attestation: I reviewed the patient's lab results. Labs: Laboratory Results - last 24 hr 08/18/22 08/18/22 08/18/22 09:36 09:45 09:45 WBC 26.8 H RBC 6.26 H Hgb 16.4 Hct 51.6 MCV 82.4 MCH 26.2 L MCHC 31.8 L RDW Std Deviation 44.4 H RDW Coeff of Alec 15.1 H Plt Count 478 H MPV 10.9 Immature Gran % (Auto) 0.800 Neut % (Auto) 91.6 H Lymph % (Auto) 3.6 L [place] % (Auto) 3.8 Eos % (Auto) 0.1 Baso % (Auto) 0.1 Absolute Neuts (auto) 24.5 H Absolute Lymphs (auto) 0.97 Nucleated RBC % 0 Differential Comment SCANNED Sodium Cancelled Potassium Cancelled Chloride Cancelled Carbon Dioxide Cancelled Anion Gap Cancelled BUN Cancelled Creatinine Cancelled Estim Creat Clear Calc Est GFR (MDRD) Af Amer Cancelled Est GFR (MDRD) Non-Af Cancelled BUN/Creatinine Ratio Cancelled Glucose Cancelled Hemoglobin A1c Lactic Acid Calcium Cancelled Phosphorus 7.9 H Magnesium 3.2 H Total Bilirubin 0.80 Direct Bilirubin 0.16 AST 3 L ALT 22 Alkaline Phosphatase 206 H Total Protein 8.6 H Albumin 3.7 Globulin 4.9 H Albumin/Globulin Ratio Cancelled Lipase 34 L Acetone Level POC Glucose > 500 H* 08/18/22 08/18/22 08/18/22 09:45 09:45 09:45 WBC RBC Hgb Hct MCV MCH MCHC RDW Std Deviation RDW Coeff of Alec Plt Count MPV Immature Gran % (Auto) Neut % (Auto) Lymph % (Auto) [place] % (Auto) Eos % (Auto) Baso % (Auto) Absolute Neuts (auto) Absolute Lymphs (auto) Nucleated RBC % Differential Comment Sodium 128 L Potassium 5.0 Chloride 92 L Carbon Dioxide 7.0 L* Anion Gap 29 H BUN 64 H Creatinine 2.27 H Estim Creat Clear Calc 46.51 Est GFR (MDRD) Af Amer 45 L Est GFR (MDRD) Non-Af 37 L BUN/Creatinine Ratio 28.2 H Glucose 873 H* Hemoglobin A1c 10.7 H Lactic Acid Calcium 9.2 Phosphorus Magnesium Total Bilirubin Direct Bilirubin AST ALT Alkaline Phosphatase Total Protein Albumin Globulin Albumin/Globulin Ratio Lipase Acetone Level LARGE H POC Glucose 08/18/22 09:45 WBC RBC Hgb Hct MCV MCH MCHC RDW Std Deviation RDW Coeff of Alec Plt Count MPV Immature Gran % (Auto) Neut % (Auto) Lymph % (Auto) [place] % (Auto) Eos % (Auto) Baso % (Auto) Absolute Neuts (auto) Absolute Lymphs (auto) Nucleated RBC % Differential Comment Sodium Potassium Chloride Carbon Dioxide Anion Gap BUN Creatinine Estim Creat Clear Calc Est GFR (MDRD) Af Amer Est GFR (MDRD) Non-Af BUN/Creatinine Ratio Glucose Hemoglobin A1c Lactic Acid 3.0 H* Calcium Phosphorus Magnesium Total Bilirubin Direct Bilirubin AST ALT Alkaline Phosphatase Total Protein Albumin Globulin Albumin/Globulin Ratio Lipase Acetone Level POC Glucose Radiography Chest X-Ray - ED: 1 View, Read by ED Physician, Read by Radiologist and No Acute Disease Diagnostic Testing: Clinical Impression(s) from Imaging Studies Chest X-Ray 08/18/22 09:46 IMPRESSION: Normal x-ray examination of the chest. Electronically Signed: David Babin MD at 10:39 EST , Rhythm Strip Rhythm Strip: Sinus Tach Rate: 133 Ectopy: None EKG Initial EKG: Attestation: I personally reviewed and interpreted this EKG as follows: Interpretation: Sinus Tachycardia Comments: Sinus tachycardia at a rate of 133 Right atrial enlargement Normal axis Normal intervals Prominent T waves in the precordial leads No significant change compared to prior EKG on 06/30/2022 Critical Care Time Critical Care Time: Yes Critical care time (excluding procedures): 30-74 minutes (45), Arranging Admission or Transfer and Performing Direct Patient Care at Bedside Discharge Plan Dx/Rx/DC Orders Clinical Impression: DKA (diabetic ketoacidoses), Lactic acidosis, Noncompliance with medication regimen, DM type 1 (diabetes mellitus, type 1), FRANKLIN (acute kidney injury), Hematemesis of unknown cause Disposition Disposition: Acute Care [facility] Discharge Date/Time: 08/18/22 11:59
[2022-08-18] MEDS: 0.9% Normal Saline 1,000 ML 999 ML IV ×3 (09:54→13:14)
[2022-08-18 09:56] LABS: Bedside Glucose > 500 mg/dL (74-106)
[2022-08-18 10:03] LABS: Absolute Lymphocyte Count 0.97 X10^3/uL (0.83-4.51); Absolute Neutrophil Count 24.5 X10^3/uL (2.0-7.7); Basophil# 0.04 X10^3/uL; Basophil% 0.1 % (0-1); Eosinophil# 0.02 X10^3/uL; Eosinophils% 0.1 % (0-5); Hematocrit 51.6 % (40-54); Hemoglobin 16.4 g/dL (13.0-16.5); Lymphocyte # 0.97 X10^3/ul (0.83-4.51); Lymphocyte % 3.6 % (19-41); Mean Corp Hgb Conc 31.8 g/dL (32-36); Mean Corpuscular Hgb 26.2 pg (27.0-32.0); Mean Corpuscular Volume 82.4 fL (80-94); Mean Platelet Vol. 10.9 fl (6.2-12.0); Monocyte# 1.02 X10^3/uL; Monocyte% 3.8 % (0-10); NRBC Flagged by Analyzer 0 % (0-5); Neutrophil % 91.6 % (47-70); POSITIVE DIFFERENTIAL YES; Platelet Count 478 K/mm3 (150-450); RBC Distribution Width CV 15.1 % (11.6-14.6); RBC Distribution Width SD 44.4 fl (35.1-43.9); Red Blood Count 6.26 M/mm3 (4.6-6.2); White Blood Count 26.8 K/mm3 (4.4-11.0)
[2022-08-18 10:05] LABS: Differential Indicated SCAN CRITERIA MET
[2022-08-18] MEDS: Ondansetron 4 MG/2 ML Vial IV (10:15)
[2022-08-18 10:19] LABS: Anion Gap 29 (5-15); BUN 64 mg/dL (7-18); BUN/Creat Ratio 28.2 RATIO (10-20); Calcium,Total 9.2 mg/dL (8.5-10.1); Chloride 92 mmol/L (98-107); Creatinine, Serum 2.27 mg/dL (0.70-1.30); EST Glomerular Filtration Rate 37 mL/min (>60); Est Glom Filt Rate - Afr Amer 45 mL/min (>60); Estimated Creatinine Clearance 46.51 ml/min; Glucose 873 mg/dL (74-106); Sodium Level 128 mmol/L (136-145)
--- NOTE | 2022-08-18 10:20 | ED.RN ---
lab called critical of co2 of 7 and blood glucose of 873. dr alberto
[2022-08-18 10:26] LABS: Differential Comment SCANNED
[2022-08-18 10:41] LABS: Hemoglobin A1c 10.7 % (3.8-5.6)
--- NOTE | 2022-08-18 10:52 | NURSING ---
ICU KITTOE DKA
--- NOTE | 2022-08-18 10:56 | NURSING ---
ICU 7
--- NOTE | 2022-08-18 11:00 | PCM.HP.STD ---
HPI - General General Date of Admission: 08/18/22 Date of Service: 08/18/22 Chief Complaint: Intractable nausea vomiting HPI Narrative UNA DURON, is a 27 M with past medical history single for diabetes mellitus type 1 who presents intractable nausea and vomiting. Patient symptoms started a few days prior to his admission. In addition to the intractable nausea vomiting he did notice some blood in his vomitus necessitating patient presented to the ED. An assessment of diabetic ketoacidosis was made upon presentation admitted to intensive care unit for further management [facility] Medical History Anxiety Depression H/O fracture of skull Learning difficulty due to cognitive limitations Septic shock Type 1 diabetes mellitus Type I diabetes mellitus, uncontrolled Home Medications ferrous sulfate 325 mg (65 mg iron) tablet (FeroSul) 325 mg PO DAILY supplement 03/05/21 [History Last Taken 03/04/21] insulin lispro 100 unit/mL subcutaneous pen 30 unit SQ TIDCM short acting insulin 03/05/21 [History Last Taken 03/04/21] sertraline 100 mg tablet 100 mg PO DAILY DEPRESSION 03/05/21 [History Last Taken 03/04/21] insulin glargine 100 unit/mL (3 mL) subcutaneous pen (Lantus Solostar U-100 Insulin) 50 unit subcut QPM diabetes 08/18/22 [History Last Taken Unknown] Allergy/AdvReac Type Severity Reaction Status Date / Time gluten AdvReac Nausea/Vom/ Verified 08/18/22 09:37 Diarrhea wheat AdvReac Nausea Verified 08/18/22 09:37 Family History Father Diabetes Surgical History H/O skin graft Social History household members: family Smoking Status: Current every day smoker tobacco type: smokeless tobacco Smokeless tobacco user: chewing tobacco second hand exposure: Yes alcohol intake: never substance use type: does not use ROS ROS Narrative GENERAL: denies fever, chills, night sweats, HEENT: denies headache, sinus congestion, RESPIRATORY: denies cough, sputum production, CARDIAC: denies chest pain, palpitations, orthopnea, GASTROINTESTINAL: nausea, vomiting, GENITOURINARY: denies dysuria, urgency, frequency, EXTREMITY: denies swelling MUSCULOSKELETAL: denies current joint pain or tenderness NEUROLOGIC: denies focal numbness, weakness, tingling HEMATOLOGIC: denies easy bruising and/or hemorrhage INTEGUMENT: denies rashes PSYCHIATRIC: denies suicidal or homicidal ideation Vital Signs Vital Signs Vital Signs: 08/18/22 09:33 08/18/22 09:37 08/18/22 10:37 Temperature 96 F L 97 F L 96.6 F L Temperature Source Temporal Temporal Temporal Pulse Rate 135 H 134 H 123 H Respiratory Rate 24 H 22 H 18 Blood Pressure 118/83 H 118/83 H 133/99 H Blood Pressure Mean 94 94 110 Pulse Ox 97 98 97 Oxygen Delivery Method Room Air Room Air Room Air Weight Weight: 66.497 kg Body Mass Index (BMI) 22.9 Physical Exam Narrative GENERAL: Appears ill looking and disheveled HEENT: Atraumatic; normocephalic EYES; Anicteric, Normal Conjunctiva NECK; supple, normal thyroid, RESPIRATORY: Diminished to auscultation CARDIOVASCULAR: Regular S1 S2, GI: soft, normoactive bowel sounds, : No Renal angle tenderness; EXTREMITIES: No edema, no clubbing, MUSCULOSKELETAL: no muscle wasting NEURO: Awake; no lateralizing signs. SKIN: No Rash PSYCH; Flat affect Results Lab / Micro Data Result Diagrams: 08/18/22 09:45 08/18/22 09:45 Labs: Laboratory Results - last 24 hr 08/18/22 09:36: POC Glucose > 500 H* 08/18/22 09:45: WBC 26.8 H, RBC 6.26 H, Hgb 16.4, Hct 51.6, MCV 82.4, MCH 26.2 L, MCHC 31.8 L, RDW Std Deviation 44.4 H, RDW Coeff of Alec 15.1 H, Plt Count 478 H, MPV 10.9, Immature Gran % (Auto) 0.800, Neut % (Auto) 91.6 H, Lymph % (Auto) 3.6 L, [place] % (Auto) 3.8, Eos % (Auto) 0.1, Baso % (Auto) 0.1, Absolute Neuts (auto) 24.5 H, Absolute Lymphs (auto) 0.97, Nucleated RBC % 0, Differential Comment SCANNED 08/18/22 09:45: Sodium Cancelled, Potassium Cancelled, Chloride Cancelled, Carbon Dioxide Cancelled, Anion Gap Cancelled, BUN Cancelled, Creatinine Cancelled, Est GFR (MDRD) Af Amer Cancelled, Est GFR (MDRD) Non-Af Cancelled, BUN/Creatinine Ratio Cancelled, Glucose Cancelled, Calcium Cancelled, Albumin/Globulin Ratio Cancelled 08/18/22 09:45: Acetone Level LARGE H 08/18/22 09:45: Hemoglobin A1c 10.7 H 08/18/22 09:45: Sodium 128 L, Potassium 5.0, Chloride 92 L, Carbon Dioxide 7.0 L*, Anion Gap 29 H, BUN 64 H, Creatinine 2.27 H, Estim Creat Clear Calc 46.51, Est GFR (MDRD) Af Amer 45 L, Est GFR (MDRD) Non-Af 37 L, BUN/Creatinine Ratio 28.2 H, Glucose 873 H*, Calcium 9.2 08/18/22 09:45: Lactic Acid 3.0 H* Radiology Impression Chest X-Ray 08/18/22 09:46 IMPRESSION: Normal x-ray examination of the chest. Electronically Signed: David Babin MD at 10:39 EST , Assessment & Plan Assessment/Plan (1) DKA (diabetic ketoacidoses): QUALIFIERS: Diabetes mellitus type: type 1 Diabetes mellitus complication detail: without coma Qualified Code(s): E10.10 - Type 1 diabetes mellitus with ketoacidosis without coma PLAN: Plan Patient is a 27-year-old gentleman with history of diabetes mellitus type 1 presented with intractable nausea vomiting as well as hematemesis 1. Diabetic ketoacidosis ? Patient has diabetes mellitus type 1 and has history of noncompliance. Patient has been admitted to the intensive care unit. Managed with aggressive IV fluid resuscitation, IV insulin and every 4 monitoring of electrolyte with correction electrolytes abnormalities 2. Metabolic acidosis ? Secondary to patient diabetic ketoacidosis we will hold off giving bicarb and continue with monitoring. If patient however fails to respond we will not hesitate starting bicarb 3. Lactic acidosis ? There is no evidence of infection this has been attributed to patient's diabetic ketoacidosis 4. Leukocytosis ? Possibly reactive, daily CBC ordered for monitoring 5. Upper GI bleed ? Suspected to be secondary to Radha-Yoder tear from intractable nausea vomiting. Patient has been started on Protonix 6. Acute kidney injury ? Secondary to severe dehydration from patient DKA patient being managed with aggressive IV fluid resuscitation with acute fall BMPs ordered for monitoring 7. Depression ? Patient is on SSRI did continue 8. Tobacco dependence - Counseled on cessation, offered nicotine patch for tobacco cravings Time critical spent in the patient's overall evaluation,decision-making process, review of diagnostic data, adjustment of management, discussion with other providers, nursing nursing and ancillary staff involved in patient's care documentation, 75 minutes minutes Charges/Coding Procedures Hospitalists Procedures: 13617 Critial Care 1st Hr Multi Select Codes Hospitalists' Procedures Procedures: 50104 Critial Care Addl 30 Min
[2022-08-18 11:04] LABS: AST(SGOT) 3 U/L (15-37); Alanine Aminotransfer ALT/SGPT 22 U/L (16-61); Albumin, Serum 3.7 g/dL (3.2-5.0); Alkaline Phosphatase 206 U/L (45-117); Bilirubin, Direct 0.16 mg/dL (0.00-0.30); Globulin 4.9 g/dL (2.2-4.2); Lipase 34 U/L (73-393); Magnesium 3.2 mg/dL (1.6-2.6); Phosphorus 7.9 mg/dL (2.5-4.9); Protein, Total 8.6 g/dL (6.4-8.2)
[2022-08-18 12:25] LABS: Bedside Glucose > 500 mg/dL (74-106)
[2022-08-18 12:56] LABS: AST(SGOT) 3 U/L (15-37); Alanine Aminotransfer ALT/SGPT 18 U/L (16-61); Albumin, Serum 3.2 g/dL (3.2-5.0); Alkaline Phosphatase 178 U/L (45-117); Anion Gap 26 (5-15); BUN 62 mg/dL (7-18); BUN/Creat Ratio 36.3 RATIO (10-20); Bilirubin, Direct 0.13 mg/dL (0.00-0.30); Chloride 103 mmol/L (98-107); Creatinine, Serum 1.71 mg/dL (0.70-1.30); EST Glomerular Filtration Rate 52 mL/min (>60); Est Glom Filt Rate - Afr Amer 63 mL/min (>60); Estimated Creatinine Clearance 63.55 ml/min; Glucose 830 mg/dL (74-106); Potassium 4.5 mmol/L (3.5-5.1); Protein, Total 7.2 g/dL (6.4-8.2); Sodium Level 134 mmol/L (136-145)
[2022-08-18 13:36] LABS: Bedside Glucose > 500 mg/dL (74-106)
[2022-08-18] MEDS: 0.9% Normal Saline 1,000 ML 500 ML IV (14:12)
[2022-08-18 14:28] LABS: Reflex Lactate? Y
[2022-08-18 14:35] LABS: Bedside Glucose 398 mg/dL (74-106)
[2022-08-18 14:49] LABS: Bacteria 0 SEEN /hpf (None Seen); Mucous, Urine 0 SEEN /hpf (<or=2+); Red Blood Cells-Urine 0 SEEN /hpf (0-5); Squamous Epithelial Cells - UA 0 SEEN /hpf (0-5); White Blood Cells 0 SEEN /hpf (0-5)
[2022-08-18 15:15] LABS: Color, Urine Straw (Yellow); Glucose, Dipstick 1000 mg/dl (Normal); Leukocyte Esterase-Dipstick Negative /ul (Negative); Nitrite-Dipstick Negative (Negative); Occult Blood-Urine Negative /ul (Negative); Protein-Dipstick 15 mg/dl (Negative); Urine Bilirubin Dipstick Negative (Negative); Urine Clarity Clear (Clear); Urine Urobilinogen Normal (Normal)
[2022-08-18 15:16] LABS: Ketone-Dipstick 150 mg/dl (Negative)
[2022-08-18 15:46] LABS: Bedside Glucose 378 mg/dL (74-106)
[2022-08-18 15:55] LABS: Anion Gap 15 (5-15); BUN 50 mg/dL (7-18); BUN/Creat Ratio 35.2 RATIO (10-20); Calcium,Total 8.5 mg/dL (8.5-10.1); Chloride 116 mmol/L (98-107); Creatinine, Serum 1.42 mg/dL (0.70-1.30); EST Glomerular Filtration Rate 64 mL/min (>60); Est Glom Filt Rate - Afr Amer 78 mL/min (>60); Estimated Creatinine Clearance 76.53 ml/min; Glucose 366 mg/dL (74-106); Potassium 4.5 mmol/L (3.5-5.1); Sodium Level 145 mmol/L (136-145)
[2022-08-18 15:56] LABS: Lactic Acid 1.2 mmol/L (0.4-1.9)
[2022-08-18] MEDS: Acetaminophen 325 MG Tablet 650 MG PO (16:25)
[2022-08-18] MEDS: guaiFENesin 10 ML UDC (200MG/10ML) PO (16:25)
[2022-08-18] MEDS: Sertraline 100 MG Tablet PO (16:25)
[2022-08-18] MEDS: 0.9% Normal Saline 1,000 ML 250 ML IV (16:26)
[2022-08-18 16:41] LABS: Bedside Glucose 298 mg/dL (74-106)
[2022-08-18 18:10] LABS: Bedside Glucose 290 mg/dL (74-106)
[2022-08-18 18:55] LABS: Bedside Glucose 274 mg/dL (74-106)
[2022-08-18 19:51] LABS: Bedside Glucose 241 mg/dL (74-106)
[2022-08-18] MEDS: 0.9% Saline Lock 10 ML Syringe IV (20:22)
[2022-08-18 20:51] LABS: Bedside Glucose 268 mg/dL (74-106)
[2022-08-18 21:08] LABS: Anion Gap 10 (5-15); BUN 37 mg/dL (7-18); BUN/Creat Ratio 34.3 RATIO (10-20); Calcium,Total 8.4 mg/dL (8.5-10.1); Chloride 120 mmol/L (98-107); Creatinine, Serum 1.08 mg/dL (0.70-1.30); EST Glomerular Filtration Rate 88 mL/min (>60); Est Glom Filt Rate - Afr Amer 107 mL/min (>60); Estimated Creatinine Clearance 100.62 ml/min; Glucose 302 mg/dL (74-106); Sodium Level 146 mmol/L (136-145)
[2022-08-18 21:55] LABS: Bedside Glucose 244 mg/dL (74-106)
[2022-08-18 22:50] LABS: Bedside Glucose 227 mg/dL (74-106)
[2022-08-19] VITALS (14 sets, daily range): BP systolic 131–147; BP diastolic 65–97; PULSE 110–140; RESP 13–20; TEMP 36.6–37.1; O2SAT 96–99
[2022-08-19] LABS: Bedside Glucose 217 mg/dL (74-106)
[2022-08-19 00:21] LABS: Anion Gap 7 (5-15); BUN 32 mg/dL (7-18); BUN/Creat Ratio 29.6 RATIO (10-20); Calcium,Total 8.4 mg/dL (8.5-10.1); Chloride 119 mmol/L (98-107); Creatinine, Serum 1.08 mg/dL (0.70-1.30); EST Glomerular Filtration Rate 88 mL/min (>60); Est Glom Filt Rate - Afr Amer 107 mL/min (>60); Estimated Creatinine Clearance 100.62 ml/min; Glucose 225 mg/dL (74-106); Potassium 3.7 mmol/L (3.5-5.1); Sodium Level 147 mmol/L (136-145)
[2022-08-19] MEDS: Ondansetron 4 MG/2 ML Vial IV ×2 (00:59→22:16)
[2022-08-19] MEDS: guaiFENesin 10 ML UDC (200MG/10ML) PO (01:03)
[2022-08-19] MEDS: Morphine 2 MG/ML Syringe IV (01:03)
[2022-08-19 01:06] LABS: Bedside Glucose 173 mg/dL (74-106)
[2022-08-19 01:51] LABS: Bedside Glucose 186 mg/dL (74-106)
[2022-08-19] MEDS: BENZOCAINE/MENTHOL 1 LOZENGE 2 LOZENGE MUCOUS MEM (01:54)
[2022-08-19] MEDS: Insulin Glargine-YFGN 100 UNIT/ML Pen 15 UNIT SC (01:55)
[2022-08-19 04:24] LABS: Absolute Lymphocyte Count 2.27 X10^3/uL (0.83-4.51); Basophil# 0.02 X10^3/uL; Basophil% 0.1 % (0-1); Hemoglobin 11.2 g/dL (13.0-16.5); Lymphocyte # 2.27 X10^3/ul (0.83-4.51); Lymphocyte % 12.2 % (19-41); Mean Corpuscular Hgb 25.6 pg (27.0-32.0); Mean Corpuscular Volume 80.1 fL (80-94); Mean Platelet Vol. 10.6 fl (6.2-12.0); Monocyte# 2.24 X10^3/uL; NRBC Flagged by Analyzer 0 % (0-5); Neutrophil # 13.95 X10^3/uL (2.7-7.7); Neutrophil % 75.1 % (47-70); POSITIVE DIFFERENTIAL YES; Platelet Count 327 K/mm3 (150-450); RBC Distribution Width CV 14.6 % (11.6-14.6); RBC Distribution Width SD 42.5 fl (35.1-43.9); Red Blood Count 4.37 M/mm3 (4.6-6.2); White Blood Count 18.6 K/mm3 (4.4-11.0)
[2022-08-19 04:35] LABS: Anion Gap 9 (5-15); BUN 27 mg/dL (7-18); BUN/Creat Ratio 27.8 RATIO (10-20); Calcium,Total 8.2 mg/dL (8.5-10.1); Chloride 111 mmol/L (98-107); Creatinine, Serum 0.97 mg/dL (0.70-1.30); EST Glomerular Filtration Rate 100 mL/min (>60); Est Glom Filt Rate - Afr Amer 121 mL/min (>60); Estimated Creatinine Clearance 112.03 ml/min; Glucose 354 mg/dL (74-106); Potassium 4.1 mmol/L (3.5-5.1); Sodium Level 142 mmol/L (136-145)
[2022-08-19 04:37] LABS: Differential Indicated SCAN CRITERIA MET
[2022-08-19 06:11] LABS: Blood Gas Specimen Type VEN; O2 Delivery Device Room Air; VBG BASE EXCESS -25 mmol/L (-1.0-3.5); VBG PO2 64 mmHg (25-40); VBG SO2 84 % (50-70); VBG TCO2 < 5 mmol/L (23-33); VBG pCO2 13.9 mmHg (41-51)
[2022-08-19] MEDS: 0.9% Saline Lock 10 ML Syringe IV (06:25)
[2022-08-19 07:12] LABS: VBG Bicarbonate 4 mmol/L (22-26)
--- NOTE | 2022-08-19 08:28 | PCM.PN.HOSP ---
Subjective Subjective DKA Patient seen appears significantly lethargic. Objective Data Objective Data Vital Signs: Vital Signs Temp Pulse Resp BP Pulse Ox O2 Del Method O2 Flow Rate 98.2 F 122 H 15 131/78 H 96 Room Air 2 08/19/22 04:00 08/19/22 07:00 08/19/22 07:00 08/19/22 07:00 08/19/22 07:00 08/19/22 07:00 08/18/22 15:00 Oxygen Flow Rate (L/min) 2 Oxygen Delivery Method Room Air Weight: 65.1 kg Body Mass Index (BMI) 20.3 Intake & Output: Intake and Output for Last 24 Hours 08/17/22 08/18/22 08/19/22 23:59 23:59 23:59 Intake Total 5012.79 / 5012.79 1657.13 / 1657.13 Output Total 2850 / 2850 800 / 800 Balance 2162.79 / 2162.79 857.13 / 857.13 Lab / Micro Data Result Diagrams: 08/19/22 04:09 08/19/22 04:09 Labs: Laboratory Results - last 24 hr 08/18/22 09:36: POC Glucose > 500 H* 08/18/22 09:45: WBC 26.8 H, RBC 6.26 H, Hgb 16.4, Hct 51.6, MCV 82.4, MCH 26.2 L, MCHC 31.8 L, RDW Std Deviation 44.4 H, RDW Coeff of Alec 15.1 H, Plt Count 478 H, MPV 10.9, Immature Gran % (Auto) 0.800, Neut % (Auto) 91.6 H, Lymph % (Auto) 3.6 L, [place] % (Auto) 3.8, Eos % (Auto) 0.1, Baso % (Auto) 0.1, Absolute Neuts (auto) 24.5 H, Absolute Lymphs (auto) 0.97, Nucleated RBC % 0, Differential Comment SCANNED 08/18/22 09:45: Sodium Cancelled, Potassium Cancelled, Chloride Cancelled, Carbon Dioxide Cancelled, Anion Gap Cancelled, BUN Cancelled, Creatinine Cancelled, Est GFR (MDRD) Af Amer Cancelled, Est GFR (MDRD) Non-Af Cancelled, BUN/Creatinine Ratio Cancelled, Glucose Cancelled, Calcium Cancelled, Phosphorus 7.9 H, Magnesium 3.2 H, Total Bilirubin 0.80, Direct Bilirubin 0.16, AST 3 L, ALT 22, Alkaline Phosphatase 206 H, Total Protein 8.6 H, Albumin 3.7, Globulin 4.9 H, Albumin/Globulin Ratio Cancelled, Lipase 34 L 08/18/22 09:45: Acetone Level LARGE H 08/18/22 09:45: Hemoglobin A1c 10.7 H 08/18/22 09:45: Sodium 128 L, Potassium 5.0, Chloride 92 L, Carbon Dioxide 7.0 L*, Anion Gap 29 H, BUN 64 H, Creatinine 2.27 H, Estim Creat Clear Calc 46.51, Est GFR (MDRD) Af Amer 45 L, Est GFR (MDRD) Non-Af 37 L, BUN/Creatinine Ratio 28.2 H, Glucose 873 H*, Calcium 9.2 08/18/22 09:45: Lactic Acid 3.0 H* 08/18/22 12:03: POC Glucose > 500 H* 08/18/22 12:15: Glucose Cancelled 08/18/22 12:15: Sodium 134 L, Potassium 4.5, Chloride 103, Carbon Dioxide 5.0 L*, Anion Gap 26 H, BUN 62 H, Creatinine 1.71 H, Estim Creat Clear Calc 63.55, Est GFR (MDRD) Af Amer 63, Est GFR (MDRD) Non-Af 52 L, BUN/Creatinine Ratio 36.3 H, Glucose 830 H*, Calcium 9.0, Total Bilirubin 0.70, Direct Bilirubin 0.13, AST 3 L, ALT 18, Alkaline Phosphatase 178 H, Total Protein 7.2, Albumin 3.2, Globulin 4.0 08/18/22 13:09: COVID-19 (LM) Not Detected 08/18/22 13:12: POC Glucose > 500 H* 08/18/22 14:09: POC Glucose 398 H 08/18/22 14:30: Urine Color Straw, Urine Clarity Clear, Urine pH 5.0, Ur Specific [place] 1.020, Urine Protein 15 H, Urine Glucose (UA) 1000 H, Urine Ketones 150 A*, Urine Occult Blood Negative, Urine Nitrite Negative, Urine Bilirubin Negative, Urine Urobilinogen Normal, Ur Leukocyte Esterase Negative, Urine RBC 0 SEEN, Urine WBC 0 SEEN, Ur Squamous Epith Cells 0 SEEN, Urine Bacteria 0 SEEN, Urine Mucus 0 SEEN 08/18/22 15:15: Sodium 145, Potassium 4.5, Chloride 116 H, Carbon Dioxide 14.0 L, Anion Gap 15, BUN 50 H, Creatinine 1.42 H, Estim Creat Clear Calc 76.53, Est GFR (MDRD) Af Amer 78, Est GFR (MDRD) Non-Af 64, BUN/Creatinine Ratio 35.2 H, Glucose 366 H, Calcium 8.5 08/18/22 15:15: Lactic Acid 1.2 08/18/22 15:21: POC Glucose 378 H 08/18/22 16:20: POC Glucose 298 H 08/18/22 17:48: POC Glucose 290 H 08/18/22 18:35: POC Glucose 274 H 08/18/22 19:30: POC Glucose 241 H 08/18/22 20:00: Sodium Cancelled, Potassium Cancelled, Chloride Cancelled, Carbon Dioxide Cancelled, Anion Gap Cancelled, BUN Cancelled, Creatinine Cancelled, Estim Creat Clear Calc Cancelled, Est GFR (MDRD) Af Amer Cancelled, Est GFR (MDRD) Non-Af Cancelled, BUN/Creatinine Ratio Cancelled, Glucose Cancelled, Calcium Cancelled 08/18/22 20:27: POC Glucose 268 H 08/18/22 20:45: Sodium 146 H, Potassium 4.0, Chloride 120 H, Carbon Dioxide 16.0 L, Anion Gap 10, BUN 37 H, Creatinine 1.08, Estim Creat Clear Calc 100.62, Est GFR (MDRD) Af Amer 107, Est GFR (MDRD) Non-Af 88, BUN/Creatinine Ratio 34.3 H, Glucose 302 H, Calcium 8.4 L 08/18/22 21:37: POC Glucose 244 H 08/18/22 22:29: POC Glucose 227 H 08/18/22 23:39: POC Glucose 217 H 08/18/22 23:58: Sodium 147 H, Potassium 3.7, Chloride 119 H, Carbon Dioxide 21.0, Anion Gap 7, BUN 32 H, Creatinine 1.08, Estim Creat Clear Calc 100.62, Est GFR (MDRD) Af Amer 107, Est GFR (MDRD) Non-Af 88, BUN/Creatinine Ratio 29.6 H, Glucose 225 H, Calcium 8.4 L 08/19/22 00:37: POC Glucose 173 H 08/19/22 01:33: POC Glucose 186 H 08/19/22 04:09: Sodium 142, Potassium 4.1, Chloride 111 H, Carbon Dioxide 22.0, Anion Gap 9, BUN 27 H, Creatinine 0.97, Estim Creat Clear Calc 112.03, Est GFR (MDRD) Af Amer 121, Est GFR (MDRD) Non-Af 100, BUN/Creatinine Ratio 27.8 H, Glucose 354 H, Calcium 8.2 L 08/19/22 04:09: WBC 18.6 H, RBC 4.37 L, Hgb 11.2 L, Hct 35.0 L, MCV 80.1, MCH 25.6 L, MCHC 32.0, RDW Std Deviation 42.5, RDW Coeff of Alec 14.6, Plt Count 327, MPV 10.6, Immature Gran % (Auto) 0.600, Neut % (Auto) 75.1 H, Lymph % (Auto) 12.2 L, [place] % (Auto) 12.0 H, Eos % (Auto) 0.0, Baso % (Auto) 0.1, Absolute Neuts (auto) 14.0 H, Absolute Lymphs (auto) 2.27, Nucleated RBC % 0, Diff Path Review December Micro: Microbiology 08/18/22 13:09 Mucosa - Nasopharyngeal Respiratory Panel (PCR) - Final ABG Data ABG results: ABG 08/18/22 10:15 Specimen Type JAIDEN VBG pH 7.10 L* VBG pO2 64 H VBG HCO3 4 L VBG Total CO2 < 5 L VBG O2 Sat (Calc) 84 H VBG Base Excess -25 L POC Mix VBG pCO2 Pt Tmp 13.9 L* O2 Delivery Device Room Air Crit Call To/Read Back Yes Blood Gas Notified [facility] Blood Gas Notified Time 10:17:05 Radiography Diagnostic Testing: Radiology Impression Chest X-Ray 08/18/22 09:46 IMPRESSION: Normal x-ray examination of the chest. Electronically Signed: David Babin MD at 10:39 EST , Rhythm Strip Rhythm Strip: Sinus Tach Rate: 133 Ectopy: None Physical Exam Narrative GENERAL: Appears ill looking and disheveled HEENT: Atraumatic; normocephalic EYES; Anicteric, Normal Conjunctiva NECK; supple, normal thyroid, RESPIRATORY: Diminished to auscultation CARDIOVASCULAR: Regular S1 S2, GI: soft, normoactive bowel sounds, : No Renal angle tenderness; EXTREMITIES: No edema, no clubbing, MUSCULOSKELETAL: no muscle wasting NEURO: Awake; no lateralizing signs. SKIN: No Rash PSYCH; Flat affect Assessment & Plan Assessment/Plan (1) DKA (diabetic ketoacidoses): QUALIFIERS: Diabetes mellitus type: type 1 Diabetes mellitus complication detail: without coma Qualified Code(s): E10.10 - Type 1 diabetes mellitus with ketoacidosis without coma PLAN: Plan Patient is a 27-year-old gentleman with history of diabetes mellitus type 1 presented with intractable nausea vomiting as well as hematemesis 1. Diabetic ketoacidosis ? Patient has diabetes mellitus type 1 and has history of noncompliance. Patient has been admitted to the intensive care unit. Managed with aggressive IV fluid resuscitation, IV insulin and every 4 monitoring of electrolyte with correction electrolytes abnormalities ? 08/19/2022; DKA resolved. Plan is to start patient on his long-acting insulin Lantus and short acting insulin lispro 2. Metabolic acidosis ? Secondary to patient diabetic ketoacidosis we will hold off giving bicarb and continue with monitoring. If patient however fails to respond we will not hesitate starting bicarb ? 08/19/2022. Patient was placed on bicarb drip due to worsening of his acidosis. Currently being monitored with every 4 BMPs 3. Lactic acidosis ? There is no evidence of infection this has been attributed to patient's diabetic ketoacidosis 4. Leukocytosis ? Possibly reactive, daily CBC ordered for monitoring ? 08/19/2022 WBC count remains elevated, patient complained of sore throat requested for viral respiratory panel and swab for strep 5. Upper GI bleed ? Suspected to be secondary to Radha-Yoder tear from intractable nausea vomiting. Patient has been started on Protonix ? 08/19/2022; patient remains on PPI 6. Acute kidney injury ? Secondary to severe dehydration from patient DKA patient being managed with aggressive IV fluid resuscitation with acute fall BMPs ordered for monitoring ? 08/19/2022 [place]ANKLIN resolved 7. Depression ? Patient is on SSRI did continue 8. Tobacco dependence - Counseled on cessation, offered nicotine patch for tobacco cravings Time critical spent in the patient's overall evaluation,decision-making process, review of diagnostic data, adjustment of management, discussion with other providers, nursing nursing and ancillary staff involved in patient's care documentation, 55 minutes minutes Charges/Coding Visit Charges Inpatient E&M: 86649 Subs Hosp L3
[2022-08-19] MEDS: Insulin Lispro 100 UNIT/ML INSULN.PEN 10 UNIT SC (08:54)
[2022-08-19 09:05] LABS: Bedside Glucose 270 mg/dL (74-106)
[2022-08-19] MEDS: Sertraline 100 MG Tablet PO (10:04)
[2022-08-19 13:05] LABS: Bedside Glucose 171 mg/dL (74-106)
[2022-08-19] MEDS: Insulin Lispro 100 UNIT/ML INSULN.PEN SC ×3 (14:55→22:05)
[2022-08-19] MEDS: Glucerna Shake 120 ML LIQUID PO (17:07)
[2022-08-19 17:46] LABS: Bedside Glucose 153 mg/dL (74-106)
--- NOTE | 2022-08-19 18:59 | CASEMGMT ---
KEN KAHN DC Planning Assessment: Face to Face with patient for initial transition planning/care coordination assessment. Pt with his eyes closed but does open them and states he would try to participate in the assessment. KEN KAHN introduced self and role at [facility], pt voiced understanding. Care providers, pharmacy, and demographics verified. Admitted Dx: DKA PCP: Sadie Specialists: none Preferred Pharmacy: did not provide Insurance: [facility] Prescription Benefit: yes Living Will/HPOA: none LNOK: father Negro Cosby Living Arrangements: Pt lives with his father in a mobile home. Pt is independent with all ADLs. Transportation: pt's father drives him, pt does not drive DME: Pt states he does not have a glucometer. States I need one. Pt unable to further clarify if he had one that was broken or lost or if has never had one. Pt states he has insulin at home and uses an insulin pen. HHC/SNF: none Plan: Return home. During the assessment pt stated he felt he was going to vomit and asked to take a break from the questions. A break was provided. Upon asking about his blood glucose monitoring supplies pt then began to gag. Upon asking pt if he knew what may have trigger his high sugars, pt rolled over away from this underwriter, gagged and stated he was done answering questions. This KEN KAHN asked for permission to contact pt's father in avi of asking him questions and pt shook his head no and stated his phone doesn't work good. Will continue to monitor and assist with DC needs as identified. Jhoana Hurtado RN CM
[2022-08-19 22:25] LABS: Bedside Glucose 191 mg/dL (74-106)
[2022-08-20 02:00] VITALS: BP 125/82; PULSE 109; RESP 17; TEMP 37.2; O2SAT 98
[2022-08-20] MEDS: Insulin Lispro 100 UNIT/ML INSULN.PEN SC ×2 (02:55→08:16)
[2022-08-20 03:15] LABS: Bedside Glucose 161 mg/dL (74-106)
[2022-08-20 04:21] LABS: Absolute Lymphocyte Count 3.61 X10^3/uL (0.83-4.51); Absolute Neutrophil Count 7.8 X10^3/uL (2.0-7.7); Basophil# 0.02 X10^3/uL; Basophil% 0.2 % (0-1); Eosinophil# 0.03 X10^3/uL; Eosinophils% 0.2 % (0-5); Hematocrit 34.8 % (40-54); Hemoglobin 11.7 g/dL (13.0-16.5); Lymphocyte # 3.61 X10^3/ul (0.83-4.51); Lymphocyte % 27.7 % (19-41); Mean Corp Hgb Conc 33.6 g/dL (32-36); Mean Corpuscular Volume 80.2 fL (80-94); Mean Platelet Vol. 10.1 fl (6.2-12.0); Monocyte# 1.48 X10^3/uL; Monocyte% 11.4 % (0-10); NRBC Flagged by Analyzer 0 % (0-5); Neutrophil # 7.83 X10^3/uL (2.7-7.7); Neutrophil % 60.1 % (47-70); Platelet Count 254 K/mm3 (150-450); RBC Distribution Width CV 14.5 % (11.6-14.6); RBC Distribution Width SD 42.3 fl (35.1-43.9); Red Blood Count 4.34 M/mm3 (4.6-6.2)
[2022-08-20 04:49] LABS: Anion Gap 6 (5-15); BUN 10 mg/dL (7-18); BUN/Creat Ratio 18.1 RATIO (10-20); Chloride 104 mmol/L (98-107); Creatinine, Serum 0.55 mg/dL (0.70-1.30); EST Glomerular Filtration Rate 191 mL/min (>60); Est Glom Filt Rate - Afr Amer 232 mL/min (>60); Estimated Creatinine Clearance 189.05 ml/min; Glucose 162 mg/dL (74-106); Sodium Level 141 mmol/L (136-145)
[2022-08-20] MEDS: Potassium Chloride Oral Tablet 20 MEQ 60 MEQ PO (06:29)
[2022-08-20 07:09] VITALS: O2SAT 98
--- NOTE | 2022-08-20 07:58 | PN.HOSP_ITS ---
Subjective Subjective Follow-up DKA ? Patient complaining of sore throat throat examination did not reveal any evidence of pharyngitis. Strep throat assay obtained the day prior came back negative. Potassium down to 3.0 Objective Data Objective Data Vital Signs: Vital Signs Temp Pulse Resp BP Pulse Ox O2 Del Method O2 Flow Rate 98.9 F 109 H 17 125/82 H 98 Room Air 2 08/20/22 02:00 08/20/22 02:00 08/20/22 02:00 08/20/22 02:00 08/20/22 07:09 08/20/22 07:09 08/18/22 15:00 Oxygen Flow Rate (L/min) 2 Oxygen Delivery Method Room Air Weight: 64.6 kg Body Mass Index (BMI) 20.3 Intake & Output: Intake and Output for Last 24 Hours 08/18/22 08/19/22 08/20/22 23:59 23:59 23:59 Intake Total 5012.79 / 5012.79 2335.46 / 2835.46 750 / 750 Output Total 2850 / 2850 800 / 800 Balance 2162.79 / 2162.79 1535.46 / 2035.46 750 / 750 Lab / Micro Data Result Diagrams: 08/20/22 04:07 08/20/22 04:07 Labs: Laboratory Results - last 24 hr 08/19/22 08:40: POC Glucose 270 H 08/19/22 12:36: POC Glucose 171 H 08/19/22 17:01: POC Glucose 153 H 08/19/22 22:04: POC Glucose 191 H 08/20/22 02:55: POC Glucose 161 H 08/20/22 04:07: WBC 13.0 H, RBC 4.34 L, Hgb 11.7 L, Hct 34.8 L, MCV 80.2, MCH 27.0, MCHC 33.6, RDW Std Deviation 42.3, RDW Coeff of Alec 14.5, Plt Count 254, MPV 10.1, Immature Gran % (Auto) 0.400, Neut % (Auto) 60.1, Lymph % (Auto) 27.7, [place] % (Auto) 11.4 H, Eos % (Auto) 0.2, Baso % (Auto) 0.2, Absolute Neuts (auto) 7.8 H, Absolute Lymphs (auto) 3.61, Nucleated RBC % 0 08/20/22 04:07: Sodium 141, Potassium 3.0 L, Chloride 104, Carbon Dioxide 31.0, Anion Gap 6, BUN 10, Creatinine 0.55 L, Estim Creat Clear Calc 189.05, Est GFR (MDRD) Af Amer 232, Est GFR (MDRD) Non-Af 191, BUN/Creatinine Ratio 18.1, Glucose 162 H, Calcium 8.0 L Micro: Microbiology 08/19/22 11:20 Interface Orders Group A Streptococcus Rapid Screen - Preliminary 08/18/22 13:09 Mucosa - Nasopharyngeal Respiratory Panel (PCR) - Final Rhythm Strip Rhythm Strip: Sinus Tach Rate: 133 Ectopy: None Physical Exam Narrative GENERAL: Appears ill looking and disheveled HEENT: Atraumatic; normocephalic EYES; Anicteric, Normal Conjunctiva NECK; supple, normal thyroid, RESPIRATORY: Diminished to auscultation CARDIOVASCULAR: Regular S1 S2, GI: soft, normoactive bowel sounds, : No Renal angle tenderness; EXTREMITIES: No edema, no clubbing, MUSCULOSKELETAL: no muscle wasting NEURO: Awake; no lateralizing signs. SKIN: No Rash PSYCH; Flat affect Assessment & Plan Assessment/Plan (1) DKA (diabetic ketoacidoses): QUALIFIERS: Diabetes mellitus type: type 1 Diabetes mellitus complication detail: without coma Qualified Code(s): E10.10 - Type 1 diabetes mellitus with ketoacidosis without coma PLAN: Plan Patient is a 27-year-old gentleman with history of diabetes mellitus type 1 presented with intractable nausea vomiting as well as hematemesis 1. Diabetic ketoacidosis ? Patient has diabetes mellitus type 1 and has history of noncompliance. Patient has been admitted to the intensive care unit. Managed with aggressive IV fluid resuscitation, IV insulin and every 4 monitoring of electrolyte with correction electrolytes abnormalities ? 08/19/2022; DKA resolved. Plan is to start patient on his long-acting insulin Lantus and short acting insulin lispro ? 08/20/2022; glucose levels stabilized. 2. Metabolic acidosis ? Secondary to patient diabetic ketoacidosis we will hold off giving bicarb and continue with monitoring. If patient however fails to respond we will not hesitate starting bicarb ? 08/19/2022. Patient was placed on bicarb drip due to worsening of his acidosis. Currently being monitored with every 4 BMPs 3. Lactic acidosis ? There is no evidence of infection this has been attributed to patient's diabetic ketoacidosis 4. Leukocytosis ? Possibly reactive, daily CBC ordered for monitoring ? 08/19/2022 WBC count remains elevated, patient complained of sore throat requested for viral respiratory panel and swab for strep 5. Upper GI bleed ? Suspected to be secondary to Radha-Yoder tear from intractable nausea vomiting. Patient has been started on Protonix ? 08/19/2022; patient remains on PPI 6. Acute kidney injury ? Secondary to severe dehydration from patient DKA patient being managed with aggressive IV fluid resuscitation with acute fall BMPs ordered for monitoring ? 08/19/2022 [place] resolved 7. Depression ? Patient is on SSRI did continue 8. Tobacco dependence - Counseled on cessation, offered nicotine patch for tobacco cravings 9. Hypokalemia ? Corrected per protocol repeat labs ordered Time critical spent in the patient's overall evaluation,decision-making process, review of diagnostic data, adjustment of management, discussion with other providers, nursing nursing and ancillary staff involved in patient's care do cumentation, 35 minutes minutes Charges/Coding Visit Charges Inpatient E&M: 55540 Subs Hosp L2
--- NOTE | 2022-08-20 07:59 | PCM.DC.SUM ---
Providers Date of Admission: 08/18/22 Date of Discharge: 08/20/22 Primary Care Physician: Deangelo Noel MD Reason For Visit: DKA Diagnosis Discharge Diagnosis (1) DKA (diabetic ketoacidoses): Status: Acute Code(s): E13.10 - Other specified diabetes mellitus with ketoacidosis without coma Qualifiers: Diabetes mellitus type: type 1 Diabetes mellitus complication detail: without coma Qualified Code(s): E10.10 - Type 1 diabetes mellitus with ketoacidosis without coma Plan Patient is a 27-year-old gentleman with history of diabetes mellitus type 1 presented with intractable nausea vomiting as well as hematemesis 1. Diabetic ketoacidosis ? Patient has diabetes mellitus type 1 and has history of noncompliance. Patient has been admitted to the intensive care unit. Managed with aggressive IV fluid resuscitation, IV insulin and every 4 monitoring of electrolyte with correction electrolytes abnormalities ? 08/19/2022; DKA resolved. Plan is to start patient on his long-acting insulin Lantus and short acting insulin lispro ? 08/20/2022; glucose levels stabilized. 2. Metabolic acidosis ? Secondary to patient diabetic ketoacidosis we will hold off giving bicarb and continue with monitoring. If patient however fails to respond we will not hesitate starting bicarb ? 08/19/2022. Patient was placed on bicarb drip due to worsening of his acidosis. Currently being monitored with every 4 BMPs 3. Lactic acidosis ? There is no evidence of infection this has been attributed to patient's diabetic ketoacidosis 4. Leukocytosis ? Possibly reactive, daily CBC ordered for monitoring ? 08/19/2022 WBC count remains elevated, patient complained of sore throat requested for viral respiratory panel and swab for strep 5. Upper GI bleed ? Suspected to be secondary to Radha-Yoder tear from intractable nausea vomiting. Patient has been started on Protonix ? 08/19/2022; patient remains on PPI 6. Acute kidney injury ? Secondary to severe dehydration from patient DKA patient being managed with aggressive IV fluid resuscitation with acute fall BMPs ordered for monitoring ? 08/19/2022 [place] resolved 7. Depression ? Patient is on SSRI did continue 8. Tobacco dependence - Counseled on cessation, offered nicotine patch for tobacco cravings 9. Hypokalemia ? Corrected per protocol Time critical spent in the patient's overall evaluation,decision-making process, review of diagnostic data, adjustment of management, discussion with other providers, nursing nursing and ancillary staff involved in patient's care documentation, 35 minutes minutes Medications at Discharge Home Medications ferrous sulfate 325 mg (65 mg iron) tablet (FeroSul) 325 mg PO DAILY supplement 03/05/21 insulin lispro 100 unit/mL subcutaneous pen 30 unit SQ TIDCM short acting insulin 03/05/21 sertraline 100 mg tablet 100 mg PO DAILY DEPRESSION 03/05/21 insulin glargine 100 unit/mL (3 mL) subcutaneous pen (Lantus Solostar U-100 Insulin) 50 unit subcut QPM diabetes 08/18/22 pantoprazole 40 mg tablet,delayed release (Protonix) 40 mg PO DAILY #60 tabs 08/20/22 potassium chloride 20 mEq tablet,extended release(part/cryst) (Klor-Con M) 20 meq PO BIDCM 30 days #60 tabs 08/20/22 Hospital Course Summary of Care Provided Minutes Spent on Discharge: 35 Physical Exam Narrative GENERAL: disheveled HEENT: Atraumatic; normocephalic EYES; Anicteric, Normal Conjunctiva NECK; supple, normal thyroid, RESPIRATORY: Diminished to auscultation CARDIOVASCULAR: Regular S1 S2, GI: soft, normoactive bowel sounds, : No Renal angle tenderness; EXTREMITIES: No edema, no clubbing, MUSCULOSKELETAL: no muscle wasting NEURO: Awake; no lateralizing signs. SKIN: No Rash PSYCH; Flat affect Weight / BMI Weight Weight: 64.6 kg Body Mass Index (BMI) 20.3 ABG / Lab / Microbiology Data Result Diagrams: 08/20/22 04:07 08/20/22 04:07 Laboratory: Laboratory Results - last 24 hr 08/19/22 08:40: POC Glucose 270 H 08/19/22 12:36: POC Glucose 171 H 08/19/22 17:01: POC Glucose 153 H 08/19/22 22:04: POC Glucose 191 H 08/20/22 02:55: POC Glucose 161 H 08/20/22 04:07: WBC 13.0 H, RBC 4.34 L, Hgb 11.7 L, Hct 34.8 L, MCV 80.2, MCH 27.0, MCHC 33.6, RDW Std Deviation 42.3, RDW Coeff of Alec 14.5, Plt Count 254, MPV 10.1, Immature Gran % (Auto) 0.400, Neut % (Auto) 60.1, Lymph % (Auto) 27.7, [place] % (Auto) 11.4 H, Eos % (Auto) 0.2, Baso % (Auto) 0.2, Absolute Neuts (auto) 7.8 H, Absolute Lymphs (auto) 3.61, Nucleated RBC % 0 08/20/22 04:07: Sodium 141, Potassium 3.0 L, Chloride 104, Carbon Dioxide 31.0, Anion Gap 6, BUN 10, Creatinine 0.55 L, Estim Creat Clear Calc 189.05, Est GFR (MDRD) Af Amer 232, Est GFR (MDRD) Non-Af 191, BUN/Creatinine Ratio 18.1, Glucose 162 H, Calcium 8.0 L Microbiology: Microbiology 08/19/22 11:20 Interface Orders Group A Streptococcus Rapid Screen - Preliminary 08/18/22 13:09 Mucosa - Nasopharyngeal Respiratory Panel (PCR) - Final D/C Instructions Discharge Diet: 1800 Calorie Control Diet Discharge Activity: Return to Normal Activity Call your doctor if you observe: Fever of 101 or Higher, Shortness of breath, Fainting spells and Chest pain Meaningful Use Info Meaningful Use Diagnoses (Choose all that apply): None applicable Discharge Plan Admission Admit Date/Time: 08/18/22 10:46 Attending Provider: Richard Cruz Primary Care Provider: Deangelo Noel Discharge Orders/Prescriptions Prescriptions: New potassium chloride [Klor-Con M20] 20 mEq Tablet,Er Particles/Crystals 20 meq PO BIDCM 30 Days Qty: 60 0RF pantoprazole [Protonix] 40 mg tablet,delayed release (DR/EC) 40 mg PO DAILY Qty: 60 0RF Continued ferrous sulfate [FeroSul] 325 mg (65 mg iron) tablet 325 mg PO DAILY sertraline 100 mg tablet 100 mg PO DAILY Label Comments: Take 1 tablet by mouth once daily. insulin lispro 100 UNIT/ML insulin pen 30 unit SQ TIDCM Rx Instructions: +SLIDING SCALE insulin glargine [Lantus Solostar U-100 Insulin] 100 unit/mL (3 mL) insulin pen 50 unit subcut QPM Referrals / Follow Up: Deangelo Noel MD [Primary Care Provider] - Within 1 Week Disposition Disposition (needs filled in before D/C Order can be placed): Home, Self Care Charges/Coding Visit Charges Inpatient E&M: 48887 Disch Hosp >30min
[2022-08-20] MEDS: Insulin Glargine-YFGN 100 UNIT/ML Pen 25 UNIT SC (08:15)
[2022-08-20] MEDS: Insulin Lispro 100 UNIT/ML INSULN.PEN 10 UNIT SC (08:16)
[2022-08-20] MEDS: Potassium Chloride Oral Tablet 20 MEQ PO (08:30)
[2022-08-20] MEDS: Sertraline 100 MG Tablet PO (08:30)
[2022-08-20] MEDS: Potassium Chloride Oral Tablet 20 MEQ 40 MEQ PO (08:30)
[2022-08-20 08:40] LABS: Bedside Glucose 241 mg/dL (74-106)
[2022-08-20 09:31] LABS: Pathologist Review Reviewed
[2022-08-20] MEDS: 0.9% Saline Lock 10 ML Syringe IV (09:35)
--- NOTE | 2022-08-20 09:49 | CASEMGMT ---
RN CM in to pt room, pt nurse at bedside. Pt lying in bed with blanket over his head. Made pt aware of a rx for a BGM. He states he is able to get this picked up. Pt is aware he should be checking his blood sugars twice daily. Pt denies any further homegoing needs. Left rx on bedside table.
[2022-08-20 09:52] VITALS: BP 134/74; PULSE 118; RESP 14; TEMP 37; O2SAT 96
[2022-08-20] MEDS: Potassium Chloride 10mEq/100mL 10 MEQ/100 ML IV.SOLN. 100 MEQ IV BOLUS ×4 (09:55→14:34)
[2022-08-20 12:06] LABS: Bedside Glucose 120 mg/dL (74-106)
[2022-08-20 14:36] VITALS: BP 111/77; PULSE 108; RESP 16; TEMP 36.6; O2SAT 97
== END 2022-08-20 16:25 | disposition home or self-care (01) | DRG 420 ==
LOC: ED 10:29 → ICU 11:14 → MS2 08-19 13:00
PROVIDERS: Admitting Provider Internal Medicine; Emergency Provider Emergency Medicine; PCP Family Medicine; Visit Provider Internal Medicine
DX: E10.10 Type 1 diabetes mellitus with ketoacidosis without coma (principal); K22.6 Gastro-esophageal laceration-hemorrhage syndrome; N17.9 Acute kidney failure, unspecified; K92.0 Hematemesis; Z79.4 Long term (current) use of insulin; F17.220 Nicotine dependence, chewing tobacco, uncomplicated; E87.6 Hypokalemia; D72.829 Elevated white blood cell count, unspecified; E86.0 Dehydration; F32.A Depression, unspecified; Z91.14 Patient's other noncompliance with medication regimen
CPT/HCPCS: 36415; 71045; 80048; 80076; 81001; 82009; 82803; 82962; 83036; 83605; 83690; 83735; 84100; 85025; 87633; 87635; 87880; 93005; 97802; 99285; 99406; J7030; J7040; J7050; A4216; J2405; J3490; U0003; U0005

== ENCOUNTER 2022-08-24 21:11 | Emergency (ER) | payer MEDICAID, SELFPAY ==
[2022-08-24 21:12] VITALS: BP 143/102; PULSE 129; RESP 16; TEMP 36.6; O2SAT 100; BMI 24.7
[2022-08-24 21:15] VITALS: BP 143/98; PULSE 131; RESP 16; TEMP 36.6; O2SAT 100
--- NOTE | 2022-08-24 21:38 | EKG12_ITS ---
Test Reason : DYSRHYTHMIA Blood Pressure : / mmHG Vent. Rate : 119 BPM Atrial Rate : 119 BPM P-R Int : 138 ms QRS Dur : 082 ms QT Int : 322 ms P-R-T Axes : 062 061 060 degrees QTc Int : 452 ms Sinus tachycardia Nonspecific T wave abnormality Abnormal ECG Confirmed by FRANDY MIRELES, KAILEY ([id number]), continuity editor COREY MICHAEL ([id number]) on 08/25/2022 9:48:32 AM Referred By: TL Confirmed By:KAILEY WISE MD
--- NOTE | 2022-08-24 21:58 | EX.ED.DYSGE1 ---
HPI History of Present Illness Chief Complaint: Lower Extremity Injury Informant: patient Narrative Narrative: Presents by EMS from home due to increasing pain in his toes bilaterally since yesterday. Denies trauma. He states also feels palpitations. He denies any similar leg pains in the past however states has had palpitations. He is a type I diabetic on insulin. He states his sugars are okay. He does follow a PCP regularly. 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 He is able to work a little bit today. PFSH [facility] Medical History Anxiety Depression H/O fracture of skull Learning difficulty due to cognitive limitations Septic shock Type 1 diabetes mellitus Type I diabetes mellitus, uncontrolled Home Medications ferrous sulfate 325 mg (65 mg iron) tablet (FeroSul) 325 mg PO DAILY supplement 03/05/21 [History Last Taken 03/04/21] insulin lispro 100 unit/mL subcutaneous pen 30 unit SQ TIDCM short acting insulin 03/05/21 [History Last Taken 03/04/21] sertraline 100 mg tablet 100 mg PO DAILY DEPRESSION 03/05/21 [History Last Taken 03/04/21] insulin glargine 100 unit/mL (3 mL) subcutaneous pen (Lantus Solostar U-100 Insulin) 50 unit subcut QPM diabetes 08/18/22 [History Last Taken Unknown] pantoprazole 40 mg tablet,delayed release (Protonix) 40 mg PO DAILY #60 tabs 08/20/22 [Rx Last Taken Unknown] potassium chloride 20 mEq tablet,extended release(part/cryst) (Klor-Con M) 20 meq PO BIDCM 30 days #60 tabs 08/20/22 [Rx Last Taken Unknown] gabapentin 300 mg capsule 300 mg PO QHS #14 caps 08/24/22 [Rx Last Taken Unknown] Allergy/AdvReac Type Severity Reaction Status Date / Time gluten AdvReac Nausea/Vom/ Verified 08/18/22 09:37 Diarrhea wheat AdvReac Nausea Verified 08/18/22 09:37 Family History Father Diabetes Surgical History H/O skin graft Social History household members: family Smoking Status: Current every day smoker tobacco type: cigarettes and smokeless tobacco Smokeless tobacco user: chewing tobacco second hand exposure: Yes alcohol intake: never substance use type: does not use ROS ROS ED Constitutional Constitutional ED: Denies chills, fever(s) or sweats Eyes Eyes: Denies change in vision ENT ENT ED: Denies dysphagia or sore throat Cardiovascular Cardiovascular: Reports palpitations; Denies chest pain, leg edema or racing heartbeat Respiratory/Chest Respiratory/Chest: Denies cough, dyspnea or dyspnea on exertion Gastrointestinal Gastrointestinal: Denies abdominal pain, diarrhea, nausea or vomiting Genitourinary Genitourinary ED: Denies dysuria, hematuria or urinary frequency Musculoskeletal Musculoskeletal: Reports other Details: Pain in toes ; Denies back pain, extremity pain or neck pain Integumentary Denies rash or wounds Neurologic Neurologic: Denies headache(s), paresthesias or weakness EXAM Physical Exam Const Vital Signs: 08/24/22 21:12 08/24/22 21:15 08/24/22 23:11 Temperature 98 F 98 F Temperature Source Temporal Oral Pulse Rate 129 H 131 H 120 H Respiratory Rate 16 16 Blood Pressure 143/102 H 143/98 H 126/82 H Blood Pressure Mean 115 113 Pulse Ox 100 100 99 Oxygen Delivery Method Room Air Room Air Positive well nourished and unkempt General Appearance ED: unkempt and NAD HEENT Reports moist mucous membranes normocephalic and atraumatic Eyes PERRL, EOMs intact bilaterally and conjunctivae normal General Eye ED: Yes normal appearance of both eyes Neck no lymphadenopathy and supple General: Negative for tenderness Chest Wall Chest: Negative for tenderness Resp normal respiratory effort and normal air movement Effort and Inspection: symmetric chest movement; Negative for respiratory distress Cardio regular rhythm and no murmurs Rate: tachycardic Peripheral Pulses: pulses 2+ throughout GI normal to inspection, nondistended, normoactive bowel sounds and non-tender Palpation: Negative for guarding or rebound tenderness present Back/Spine no CVA tenderness and no thoracic nor lumbar tenderness Extremity normal to inspection Extremity Narrative: There is noted tenderness when palpating of distal toes throughout. There is no erythema of the toes there is no wounds. There is no swelling. Able to flex and extend all his toes. General Extremety ED: Yes tenderness; Negative for edema General Extremity: Negative for edema Neuro oriented x3 and no sensory deficits noted Sensorium / Orientation: awake and alert Psych Appearance: unkempt Skin no rashes or lesions noted and no wounds MDM MDM MDM Narrative Medical decision making narrative: Patient presenting increasing pain in his toes. History of diabetes. Differential concerning for neuropathy. Additional differentials of arm for fractures versus infection however no clinical signs or history of this. With his diabetes I did check labs, while labs ring ran he requested food which was given to him he ate a sandwich and a granola bar. Labs returning glucose at 52 he was never symptomatic. Additional orange juice. Potassium 3.0 which was orally replaced. White count 12.6 hemoglobin 14. Started on gabapentin for concern for neuropathy. With fluids heart rate went down to the 100s on my evaluation sinus rhythm he has had tachycardia in the past. No clinical infectious concerns denies cough or chest pains or dyspnea for concerns of upper respiratory illness or any PE concerns. He is ambulating department. Prescription for gabapentin for 2 weeks sent to his pharmacy. Outpatient follow-up. Lab Data Labs: Laboratory Results - last 24 hr 08/24/22 08/24/22 22:07 22:07 WBC 12.6 H RBC 5.40 Hgb 14.0 Hct 44.0 MCV 81.5 MCH 25.9 L MCHC 31.8 L D RDW Std Deviation 40.7 RDW Coeff of Alec 14.0 Plt Count 492 H MPV 10.5 Immature Gran % (Auto) 0.300 Neut % (Auto) 30.5 L Lymph % (Auto) 47.4 H [place] % (Auto) 16.0 H Eos % (Auto) 5.5 H Baso % (Auto) 0.3 Absolute Neuts (auto) 3.8 Absolute Lymphs (auto) 5.98 H Nucleated RBC % 0 Differential Comment SCANNED Diff Path Review May foll Reactive Lymphocytes 1+ Sodium 142 Potassium 3.0 L Chloride 103 Carbon Dioxide 32.0 Anion Gap 7 BUN 11 Creatinine 0.66 L Estim Creat Clear Calc 143.27 Est GFR (MDRD) Af Amer 190 Est GFR (MDRD) Non-Af 157 BUN/Creatinine Ratio 16.8 Glucose 52 L Calcium 9.4 EKG Initial EKG: Attestation: I personally reviewed and interpreted this EKG as follows: Comments: Sinus rate of 119, no ST or T wave changes. Discharge Plan Triage Chief Complaint: Lower Extremity Injury ED Provider: Gatito Reed Dx/Rx/DC Orders Clinical Impression: Neuropathy, History of diabetes mellitus, type I, Sinus tachycardia Instructions: ED Neuropathy, Peripheral Prescriptions: New gabapentin 300 mg capsule 300 mg PO QHS Qty: 14 0RF No Action ferrous sulfate [FeroSul] 325 mg (65 mg iron) tablet 325 mg PO DAILY sertraline 100 mg tablet 100 mg PO DAILY Label Comments: Take 1 tablet by mouth once daily. insulin lispro 100 UNIT/ML insulin pen 30 unit SQ TIDCM Rx Instructions: +SLIDING SCALE insulin glargine [Lantus Solostar U-100 Insulin] 100 unit/mL (3 mL) insulin pen 50 unit subcut QPM potassium chloride [Klor-Con M20] 20 mEq Tablet,Er Particles/Crystals 20 meq PO BIDCM 30 Days Qty: 60 0RF pantoprazole [Protonix] 40 mg tablet,delayed release (DR/EC) 40 mg PO DAILY Qty: 60 0RF Primary Care Provider: Deangelo Noel Referrals: Deangelo Noel MD [Primary Care Provider] - 1-2 Weeks Disposition Disposition: Home, Self Care Discharge Date/Time: 08/24/22 23:14
[2022-08-24] MEDS: Gabapentin 300 MG Capsule PO (22:04)
[2022-08-24 22:14] LABS: Absolute Lymphocyte Count 5.98 X10^3/uL (0.83-4.51); Absolute Neutrophil Count 3.8 X10^3/uL (2.0-7.7); Basophil# 0.04 X10^3/uL; Basophil% 0.3 % (0-1); Eosinophil# 0.69 X10^3/uL; Eosinophils% 5.5 % (0-5); Lymphocyte # 5.98 X10^3/ul (0.83-4.51); Lymphocyte % 47.4 % (19-41); Mean Corp Hgb Conc 31.8 g/dL (32-36); Mean Corpuscular Hgb 25.9 pg (27.0-32.0); Mean Corpuscular Volume 81.5 fL (80-94); Mean Platelet Vol. 10.5 fl (6.2-12.0); Monocyte# 2.02 X10^3/uL; NRBC Flagged by Analyzer 0 % (0-5); Neutrophil # 3.84 X10^3/uL (2.7-7.7); Neutrophil % 30.5 % (47-70); POSITIVE DIFFERENTIAL YES; Platelet Count 492 K/mm3 (150-450); RBC Distribution Width SD 40.7 fl (35.1-43.9); White Blood Count 12.6 K/mm3 (4.4-11.0)
[2022-08-24 22:16] LABS: Differential Indicated SCAN CRITERIA MET
[2022-08-24 22:33] LABS: Anion Gap 7 (5-15); BUN 11 mg/dL (7-18); BUN/Creat Ratio 16.8 RATIO (10-20); Calcium,Total 9.4 mg/dL (8.5-10.1); Chloride 103 mmol/L (98-107); Creatinine, Serum 0.66 mg/dL (0.70-1.30); EST Glomerular Filtration Rate 157 mL/min (>60); Est Glom Filt Rate - Afr Amer 190 mL/min (>60); Estimated Creatinine Clearance 143.27 ml/min; Glucose 52 mg/dL (74-106); Sodium Level 142 mmol/L (136-145)
[2022-08-24 23:07] LABS: Differential Comment SCANNED; Reactive Lymphocyte 1+
[2022-08-24 23:11] VITALS: BP 126/82; PULSE 120; O2SAT 99
[2022-08-24] MEDS: Potassium Chloride Oral Tablet 20 MEQ 40 MEQ PO (23:11)
--- NOTE | 2022-08-24 23:13 | ED.RN ---
Pt. ate ham sandwich, granola bar, and drank 2 orange juices prior to being discharged.
[2022-08-26 09:38] LABS: Pathologist Review Reviewed
== END 2022-08-24 23:14 | disposition home or self-care (01) ==
PROVIDERS: Emergency Provider Emergency Medicine; PCP Family Medicine; Visit Provider Emergency Medicine
DX: E10.40 Type 1 diabetes mellitus with diabetic neuropathy, unspecified (principal); R00.0 Tachycardia, unspecified; F17.210 Nicotine dependence, cigarettes, uncomplicated
CPT/HCPCS: 80048; 85025; 93005; 96360; 99285; J7030; A4216

== ENCOUNTER 2022-10-13 03:48 | Emergency (ER) | payer MEDICAID, SELFPAY ==
[2022-10-13 03:49] VITALS: BP 141/85; PULSE 120; RESP 14; TEMP 36.5; O2SAT 99; BMI 24.4
--- NOTE | 2022-10-13 03:59 | EKG12_ITS ---
Test Reason : CP Blood Pressure : / mmHG Vent. Rate : 130 BPM Atrial Rate : 130 BPM P-R Int : 146 ms QRS Dur : 082 ms QT Int : 296 ms P-R-T Axes : 065 059 061 degrees QTc Int : 435 ms Sinus tachycardia Low voltage QRS (Limb Leads) Confirmed by FRANDY MIRELES, KAILEY ([id number]), editor trade journal COREY MICHAEL ([id number]) on 10/15/2022 9:05:29 AM Referred By: ISAEL Confirmed By:KAILEY WISE MD
--- NOTE | 2022-10-13 04:00 | RAD_ITS ---
EXAM: XR CHEST, 1 VIEW CLINICAL INDICATION: SOB TECHNIQUE: Frontal view of the chest. This report was created using [employer] report generation technology. COMPARISON: 08/18/2022. FINDINGS: LUNGS AND PLEURAL SPACES: Unremarkable. No consolidation or edema. No pneumothorax. No effusion. HEART: Unremarkable. Cardiac silhouette not enlarged. MEDIASTINUM: Central airways and mediastinal contour are unremarkable. BONES/JOINTS: Unremarkable. SOFT TISSUES: Unremarkable. RAD/Chest 1 View (Portable) IMPRESSION: No radiographic evidence of acute cardiopulmonary disease. Electronically Signed: Kain Perkins MD at 4:41 EST ,
--- NOTE | 2022-10-13 04:00 | EDS_ITS ---
HPI History of Present Illness Chief Complaint: Chest Pain Informant: patient Narrative Narrative: Patient said he had an episode of his heart racing at home. He felt short of breath with this. He had a little bit of pain. He states it is all better now. He states his heart rate is always fast. He has not followed up with a chief technical officer for this. This has been going on for years. He has multiple episodes of the same episode that he had tonight. He states he was feeling fine. He got into an argument with his significant other. That made him very mad and angry and his heart rate went up and he had the symptoms. He states his blood sugars have been running 1-200 recently. He has no nausea vomiting. He is having no symptoms at all of anything now. Does not feel like this is DKA. He has never had a PE or DVT. No recent travel surgery or immobilization. I have reviewed some of his records in our computer. This patient has not had a heart rate below 100 since February. He has many heart rates in the 115-140 range. He runs very fast. This is consistent with his story. No recent change in medications. [facility] Medical History Anxiety Depression H/O fracture of skull Learning difficulty due to cognitive limitations Septic shock Type 1 diabetes mellitus Type I diabetes mellitus, uncontrolled Home Medications ferrous sulfate 325 mg (65 mg iron) tablet (FeroSul) 325 mg PO DAILY supplement 03/05/21 [History Last Taken 03/04/21] insulin lispro 100 unit/mL subcutaneous pen 30 unit SQ TIDCM short acting insulin 03/05/21 [History Last Taken 03/04/21] sertraline 100 mg tablet 100 mg PO DAILY DEPRESSION 03/05/21 [History Last Taken 03/04/21] insulin glargine 100 unit/mL (3 mL) subcutaneous pen (Lantus Solostar U-100 Insulin) 50 unit subcut QPM diabetes 08/18/22 [History Last Taken Unknown] pantoprazole 40 mg tablet,delayed release (Protonix) 40 mg PO DAILY #60 tabs 08/20/22 [Rx Last Taken Unknown] potassium chloride 20 mEq tablet,extended release(part/cryst) (Klor-Con M) 20 meq PO BIDCM 30 days #60 tabs 08/20/22 [Rx Last Taken Unknown] gabapentin 300 mg capsule 300 mg PO QHS #14 caps 08/24/22 [Rx Last Taken Unknown] Allergy/AdvReac Type Severity Reaction Status Date / Time gluten AdvReac Nausea/Vom/ Verified 08/18/22 09:37 Diarrhea wheat AdvReac Nausea Verified 08/18/22 09:37 Family History Father Diabetes Surgical History H/O skin graft Social History household members: family Smoking Status: Current every day smoker tobacco type: cigarettes and smokeless tobacco Smokeless tobacco user: chewing tobacco second hand exposure: Yes alcohol intake: never substance use type: does not use ROS ROS ED Constitutional Constitutional ED: Denies chills, fever(s) or subjective Eyes Eyes: Denies change in vision ENT ENT ED: Denies rhinorrhea or sore throat Cardiovascular Cardiovascular: Reports palpitations and racing heartbeat Respiratory/Chest Respiratory/Chest: Reports dyspnea; Denies cough Gastrointestinal Gastrointestinal: Denies nausea or vomiting Musculoskeletal Musculoskeletal: Denies back pain or myalgias Integumentary Denies rash Neurologic Neurologic: Denies headache(s), paresthesias or weakness Endocrine Endocrinology: Denies polydipsia or polyuria Hematologic/Lymphatic Hematologic/Lymphatic: Denies easy bleeding, easy bruising or lymphadenopathy Allergic/Immunologic Allergic/Immunologic ED: Denies urticaria EXAM Physical Exam Narrative Exam Narrative: Patient is awake alert sitting in bed. He looks comfortable. He carries on normal conversation. He states he is feeling great now. He states he is frustrated because this happens a lot. He states he is never seen a chief technical officer. He states he has never had a Holter monitor or similar. HEENT: Mucous membranes are moist. No trauma. Multiple lip rings. None of th jossue are infected. Eyes: No icterus or notable pallor no pain with range of motion or limitation. Neck shows no JVD Lungs are clear bilaterally. He takes even smooth comfortable breaths. There is no pain with a deep breath. His saturations are normal at 99 to 100% oxygen on room air. Heart is regular. It is tachycardic at about 1 15-1 20. I hear no murmur gallop or rub. He has good strong peripheral pulses Abdomen is soft nontender. Well-healed scar in the left mid quadrant from abscess when he was young. shows no CVA or suprapubic tenderness Extremities are not clean but I am not seeing signs of rash swelling or tenderness. Skin is soft not diaphoretic no pallor. No rashes noted. Neurologically he is awake he is alert he is appropriate he is calm at this time. Const Vital Signs: 10/13/22 03:49 Temperature 97.7 F L Temperature Source Temporal Pulse Rate 120 H Respiratory Rate 14 Blood Pressure 141/85 H Blood Pressure Mean 103 Pulse Ox 99 Oxygen Delivery Method Room Air MDM MDM MDM Narrative Medical decision making narrative: My independent interpretation of the patient's single view AP chest shows no acute process. No pneumothorax. Normal cardiac silhouette. No sign of infiltrate. Final reading by radiology as no radiographic evidence of acute RDO pulmonary disease. Patient CBC is normal including white count hemoglobin and platelets. Electrolytes are normal other than minimally decreased potassium at 3.4. His glucose was a bit high at 243. But he states he runs in the 100s and 200s. His bicarb and gap are normal. No sign of DKA. Troponin is 4. Patient states he has this a lot. This has been going on for a year or more. He will get high heart rate. It is usually when he is agitated or upset. Sometimes he gets the chest pain with it sometimes he does not. I been watching his rhythm on the monitor. Is always been sinus. I have seen down as low as about 112. He tends to average about 120 which looks to be his baseline. Although this is quick, there is no sign of dehydration. He states its been up like this for a year and then vitals on the computer verify that. He has no known risk factor for DVT or PE. He has normal saturations on room air. He is not having pain at this time. He has no dyspnea. I do not think he needs a CTA. I will try to get a Holter monitor placed on him to see if there is any abnormal rhythm other than sinus tach. He states this is never been done. He states he seen a lot of people for the high heart rate but they have never been able to sort out why it does that. I did review the prehospital EKG by EMS and it was a sinus tachycardia just over 140. He had symptoms at that rate but he does not have symptoms at a lower rate. I was able to talk with our respiratory therapist. They are able to get a Holter monitor on this patient. He is happy because no one is done that before. We will have him follow-up with his primary physician and call cardiology for an appointment. Lab Data Attestation: I reviewed the patient's lab results. Labs: Laboratory Results - last 24 hr 10/13/22 10/13/22 04:25 04:25 WBC 8.8 RBC 5.14 Hgb 13.3 Hct 43.0 MCV 83.7 MCH 25.9 L MCHC 30.9 L RDW Std Deviation 41.9 RDW Coeff of Alec 13.6 Plt Count 309 MPV 10.4 Immature Gran % (Auto) 0.100 Neut % (Auto) 43.5 L Lymph % (Auto) 44.1 [place] % (Auto) 7.2 Eos % (Auto) 4.3 Baso % (Auto) 0.8 Absolute Neuts (auto) 3.8 Absolute Lymphs (auto) 3.87 Nucleated RBC % 0 Sodium 140 Potassium 3.4 L Chloride 105 Carbon Dioxide 27.0 Anion Gap 8 BUN 10 Creatinine 0.72 Estim Creat Clear Calc 131.33 Est GFR (MDRD) Af Amer 169 Est GFR (MDRD) Non-Af 140 BUN/Creatinine Ratio 13.8 Glucose 243 H Calcium 8.8 Troponin I High Sens 4 Radiography Diagnostic Testing: Clinical Impression(s) from Imaging Studies Chest X-Ray 10/13/22 04:00 IMPRESSION: No radiographic evidence of acute cardiopulmonary disease. Electronically Signed: Kain Perkins MD at 4:41 EST , EKG Initial EKG: Comments: Independent interpretation of the patient's EKG done for tachycardia shows a sinus rhythm with tachycardic rate at 130. No ventricular ectopy. No acute ST elevation or depression. No preexcitation. TN interval, QRS duration and QTc are normal. This is similar to several prior EKGs that I reviewed on the computer. Discharge Plan Triage Chief Complaint: Chest Pain ED Provider: Jimmie Palomino Dx/Rx/DC Orders Clinical Impression: Chest pain, Chronic tachycardia, History of diabetes mellitus, type I Instructions: ED Chest Pain, Uncertain Cause Prescriptions: No Action ferrous sulfate [FeroSul] 325 mg (65 mg iron) tablet 325 mg PO DAILY sertraline 100 mg tablet 100 mg PO DAILY Label Comments: Take 1 tablet by mouth once daily. insulin lispro 100 UNIT/ML insulin pen 30 unit SQ TIDCM Rx Instructions: +SLIDING SCALE insulin glargine [Lantus Solostar U-100 Insulin] 100 unit/mL (3 mL) insulin pen 50 unit subcut QPM potassium chloride [Klor-Con M20] 20 mEq Tablet,Er Particles/Crystals 20 meq PO BIDCM 30 Days Qty: 60 0RF pantoprazole [Protonix] 40 mg tablet,delayed release (DR/EC) 40 mg PO DAILY Qty: 60 0RF gabapentin 300 mg capsule 300 mg PO QHS Qty: 14 0RF Primary Care Provider: Deangelo Noel Referrals: Robbi Salazar MD [Med Staff - Active Staff] - As soon as possible (Call in morning to initiate an appointment) Deangelo Noel MD [Primary Care Provider] - As soon as possible Disposition Disposition: Home, Self Care
[2022-10-13 04:29] LABS: Absolute Lymphocyte Count 3.87 X10^3/uL (0.83-4.51); Absolute Neutrophil Count 3.8 X10^3/uL (2.0-7.7); Basophil# 0.07 X10^3/uL; Basophil% 0.8 % (0-1); Eosinophil# 0.38 X10^3/uL; Eosinophils% 4.3 % (0-5); Hemoglobin 13.3 g/dL (13.0-16.5); Lymphocyte # 3.87 X10^3/ul (0.83-4.51); Lymphocyte % 44.1 % (19-41); Mean Corp Hgb Conc 30.9 g/dL (32-36); Mean Corpuscular Hgb 25.9 pg (27.0-32.0); Mean Corpuscular Volume 83.7 fL (80-94); Mean Platelet Vol. 10.4 fl (6.2-12.0); Monocyte# 0.63 X10^3/uL; Monocyte% 7.2 % (0-10); NRBC Flagged by Analyzer 0 % (0-5); Neutrophil # 3.82 X10^3/uL (2.7-7.7); Neutrophil % 43.5 % (47-70); Platelet Count 309 K/mm3 (150-450); RBC Distribution Width CV 13.6 % (11.6-14.6); RBC Distribution Width SD 41.9 fl (35.1-43.9); Red Blood Count 5.14 M/mm3 (4.6-6.2); White Blood Count 8.8 K/mm3 (4.4-11.0)
[2022-10-13] MEDS: 0.9% Normal Saline 1,000 ML 1000 ML IV (04:42)
[2022-10-13 04:52] LABS: Anion Gap 8 (5-15); BUN 10 mg/dL (7-18); BUN/Creat Ratio 13.8 RATIO (10-20); Calcium,Total 8.8 mg/dL (8.5-10.1); Chloride 105 mmol/L (98-107); Creatinine, Serum 0.72 mg/dL (0.70-1.30); EST Glomerular Filtration Rate 140 mL/min (>60); Est Glom Filt Rate - Afr Amer 169 mL/min (>60); Estimated Creatinine Clearance 131.33 ml/min; Glucose 243 mg/dL (74-106); Potassium 3.4 mmol/L (3.5-5.1); Sodium Level 140 mmol/L (136-145); Troponin-I HS 4 pg/mL (3.0-78.0)
[2022-10-13 06:21] VITALS: BP 129/90
== END 2022-10-13 06:23 | disposition home or self-care (01) ==
PROVIDERS: Emergency Provider Emergency Medicine; PCP Family Medicine; Visit Provider Emergency Medicine
DX: R07.9 Chest pain, unspecified (principal); E10.9 Type 1 diabetes mellitus without complications; R00.0 Tachycardia, unspecified; F17.210 Nicotine dependence, cigarettes, uncomplicated
CPT/HCPCS: 85025; 80048; 71045; 84484; 93005; 96360; 96361; J7030; A4216

== ENCOUNTER → 2022-10-13 | Outpatient (CLI) | payer MEDICAID, SELFPAY | END | disposition home or self-care (01) | PROVIDERS: PCP Family Medicine; Visit Provider Internal Medicine Cardiovascular Disease | DX: I49.9 Cardiac arrhythmia, unspecified (principal); E10.9 Type 1 diabetes mellitus without complications; R07.9 Chest pain, unspecified; R00.0 Tachycardia, unspecified; F17.210 Nicotine dependence, cigarettes, uncomplicated | CPT/HCPCS: 71045; 80048; 84484; 85025; 93005; 93225; 93226; 96360; 96361; 99285; J7030; A4216 ==

== ENCOUNTER 2022-11-17 | Emergency (ER) | payer MEDICAID, SELFPAY ==
[2022-11-17 00:10] VITALS: BP 120/62; PULSE 120; RESP 18; TEMP 36.6; O2SAT 98
--- NOTE | 2022-11-17 00:13 | RAD_ITS ---
INDICATION: chest pain EXAMINATION/TECHNIQUE: X-RAY - XR Chest 1 View COMPARISON: None. FINDINGS: LINES/DEVICES: None. LUNGS: No consolidation, edema or effusion. No pneumothorax. MEDIASTINUM AND CARDIOVASCULAR STRUCTURES: Cardiac silhouette not enlarged. Central airways and mediastinal contour are unremarkable. BONES AND SOFT TISSUES: Unremarkable. RAD/Chest 1 View (Portable) IMPRESSION: No radiographic evidence of acute cardiopulmonary disease. Electronically Signed: Svetlana Solo MD at 0:38 EDT ,
[2022-11-17 00:25] LABS: Absolute Lymphocyte Count 4.55 X10^3/uL (0.83-4.51); Absolute Neutrophil Count 5.8 X10^3/uL (2.0-7.7); Basophil# 0.06 X10^3/uL; Basophil% 0.5 % (0-1); Eosinophil# 0.33 X10^3/uL; Eosinophils% 2.8 % (0-5); Hematocrit 41.1 % (40-54); Hemoglobin 13.3 g/dL (13.0-16.5); Lymphocyte # 4.55 X10^3/ul (0.83-4.51); Lymphocyte % 38.9 % (19-41); Mean Corp Hgb Conc 32.4 g/dL (32-36); Mean Corpuscular Hgb 26.1 pg (27.0-32.0); Mean Corpuscular Volume 80.6 fL (80-94); Mean Platelet Vol. 10.9 fl (6.2-12.0); Monocyte% 7.7 % (0-10); NRBC Flagged by Analyzer 0 % (0-5); Neutrophil # 5.82 X10^3/uL (2.7-7.7); Neutrophil % 49.8 % (47-70); Platelet Count 304 K/mm3 (150-450); RBC Distribution Width CV 12.8 % (11.6-14.6); RBC Distribution Width SD 37.6 fl (35.1-43.9); White Blood Count 11.7 K/mm3 (4.4-11.0)
[2022-11-17 00:52] VITALS: BMI 18.1
[2022-11-17 00:56] LABS: Anion Gap 5 (5-15); BUN 13 mg/dL (7-18); Calcium,Total 9.1 mg/dL (8.5-10.1); Chloride 103 mmol/L (98-107); Creatinine, Serum 0.76 mg/dL (0.70-1.30); EST Glomerular Filtration Rate 131 mL/min (>60); Est Glom Filt Rate - Afr Amer 159 mL/min (>60); Estimated Creatinine Clearance 127.57 ml/min; Glucose 278 mg/dL (74-106); Potassium 3.8 mmol/L (3.5-5.1); Sodium Level 134 mmol/L (136-145); Troponin-I HS < 3 pg/mL (3.0-78.0)
--- NOTE | 2022-11-17 01:11 | CT_ITS ---
STUDY: CTA CHEST REASON FOR EXAM: Male, 27 years old. chest pain RADIATION DOSAGE (If Supplied By Facility): CTDIvol = ( 5.36 ) mGy, DLP = ( 164.43 ) mGycm TECHNIQUE: The examination was performed with the intravenous administration of IV 100mL Isovue-370. Post-processing of the angiographic images was performed, with multiplanar reformation and 3D reconstruction. Individualized dose optimization techniques were used for this CT. COMPARISON: None. FINDINGS: The remaining of the bleeding is identified the ovaries are not Status post placement of lines. Normal enhancement of the main pulmonary artery and right and left pulmonary arteries. Normal enhancement of the bilateral peripheral pulmonary arteries. There is no demonstrated pulmonary embolism. Normal thoracic aorta and visualized great vessels. There is no demonstrated aortic dissection. Normal heart and pericardium. Normal mediastinum. Normal hilar regions. Normal visualized trachea and bronchi. The lungs are well expanded. Normal pulmonary parenchyma. Normal pleura. Normal chest wall structures. Normal osseous structures. Normal visualized upper abdomen. CT/CTA Chest W/WO Contrast IMPRESSION: Normal CTA chest examination, without a demonstrated pulmonary embolism or arterial dissection. Electronically Signed: Svetlana Solo MD at 1:40 EDT ,
--- NOTE | 2022-11-17 01:12 | ED.VIS.CHEST ---
HPI History of Present Illness Chief Complaint: Chest Pain Informant: patient Narrative Narrative: Patient presents with more episodes of chest pain. He states he has chest pain a lot. This seems sharper than normal. It is located in his left upper chest. He circles an area about 2 inches around above and just left of his nipple line. It does sometimes hurt to take a deep breath but he is not actually short of breath. He did vomit once earlier today but is not nauseated. He has been having this for 5 or 6 years. It looks like he had a CTA back in 2017. I have seen him before for this. He has been seen several other times. Last time he was in we able to get a Holter monitor on him. I reviewed his outpatient results of Holter monitor that showed an average heart rate of 111 and a high heart rate of 160. No atrial fibrillation or marked dysrhythmias were noted. Patient states he needs to see a product merchandiser. But he has not made any calls to see them despite referrals. He states his phone only works on [employer]. I have recommended he try to use a phone at work or borrow a friend's phone to make those calls as it is important that he gets in. Patient denies any travel surgery immobilization personal or family history of DVT or PE. [facility] Medical History Anxiety Depression H/O fracture of skull Learning difficulty due to cognitive limitations Septic shock Type 1 diabetes mellitus Type I diabetes mellitus, uncontrolled Home Medications ferrous sulfate 325 mg (65 mg iron) tablet (FeroSul) 325 mg PO DAILY supplement 03/05/21 [History Last Taken 03/04/21] insulin lispro 100 unit/mL subcutaneous pen 30 unit SQ TIDCM short acting insulin 03/05/21 [History Last Taken 03/04/21] sertraline 100 mg tablet 100 mg PO DAILY DEPRESSION 03/05/21 [History Last Taken 03/04/21] insulin glargine 100 unit/mL (3 mL) subcutaneous pen (Lantus Solostar U-100 Insulin) 50 unit subcut QPM diabetes 08/18/22 [History Last Taken Unknown] pantoprazole 40 mg tablet,delayed release (Protonix) 40 mg PO DAILY #60 tabs 08/20/22 [Rx Last Taken Unknown] potassium chloride 20 mEq tablet,extended release(part/cryst) (Klor-Con M) 20 meq PO BIDCM 30 days #60 tabs 08/20/22 [Rx Last Taken Unknown] gabapentin 300 mg capsule 300 mg PO QHS #14 caps 08/24/22 [Rx Last Taken Unknown] Allergy/AdvReac Type Severity Reaction Status Date / Time gluten AdvReac Nausea/Vom/ Verified 08/18/22 09:37 Diarrhea wheat AdvReac Nausea Verified 08/18/22 09:37 Family History Father Diabetes Surgical History H/O skin graft Social History household members: family Smoking Status: Current every day smoker tobacco type: cigarettes and smokeless tobacco Smokeless tobacco user: chewing tobacco second hand exposure: Yes alcohol intake: never substance use type: does not use ROS ROS ED Constitutional Constitutional ED: Denies chills or fever(s) Eyes Eyes: Denies change in vision ENT ENT ED: Denies ear pain, rhinorrhea or sore throat Cardiovascular Cardiovascular: Reports as per HPI Respiratory/Chest Respiratory/Chest: Denies cough Gastrointestinal Gastrointestinal: Reports vomiting; Denies abdominal pain or nausea Genitourinary Genitourinary ED: Denies hematuria Musculoskeletal Musculoskeletal: Denies arthralgias, back pain, myalgias or neck pain Integumentary Reports other Details: Chronic excoriations on hands. He did have prior bray years ago. Neurologic Neurologic: Denies paresthesias Hematologic/Lymphatic Hematologic/Lymphatic: Denies easy bleeding or easy bruising EXAM Physical Exam Narrative Exam Narrative: Patient is awake alert sitting calmly in bed. Nontoxic. Overall poor self-care and hygiene is noted. HEENT: Moist mucous membranes. No thrush. Eyes show no icterus Neck is supple. No JVD. No stridor. No abnormal voice or swallowing. Lungs are clear bilaterally. Saturations are normal. He has mild chest wall tenderness but not really reproducing his symptoms to any notable degree. I see no skin lesions or abnormality in the area of pain. Heart is tachycardic. He had a heart rate of 116 when I counted and calculated for 15 seconds. He does sound regular. Peripheral pulses are equal. Tones are not muffled. I hear no murmur. Abdomen soft and nontender. Extremities show a lot of excoriations and are not clean but do not show signs of infection. He does have some chronic mild swelling around his ankles which he states is unchanged. But no asymmetry or cord. Neurologically he is awake alert appropriate in a reasonable informant for details and past medical history. Const Vital Signs: 11/17/22 00:10 Temperature 97.9 F Temperature Source Temporal Pulse Rate 120 H Respiratory Rate 18 Blood Pressure 120/62 Blood Pressure Mean 81 Pulse Ox 98 Oxygen Delivery Method Room Air MDM MDM MDM Narrative Medical decision making narrative: Independent interpretation of the patient's single view AP chest x-ray shows no acute process. No pneumothorax. Normal cardiac silhouette. Final reading is no radiographic evidence of acute pulmonary disease. Patient CBC shows nonspecific elevation of white count 11.7. But hemoglobin platelets are normal. Electrolytes show minimal decrease sodium 134. Glucose is high at 278 but that is normal to actually little bit good for him. Renal functions normal. Despite ongoing chest pain his troponin is unmeasurable. I also reviewed past visits and studies. Patient has had multiple chest x-rays. But his last CTA of the chest was about 6 years ago. Since he has recurrent symptoms, tachycardia, and has not had this study we will check this tonight. We will look for signs of PE. But we will also look for any signs of mass or other abnormality that might be causing his symptoms. This study is pending at this time. Patient will be turned over to the night physician pending results of this study. Lab Data Attestation: I reviewed the patient's lab results. Labs: Laboratory Results - last 24 hr 11/17/22 11/17/22 00:15 00:15 WBC 11.7 H RBC 5.10 Hgb 13.3 Hct 41.1 MCV 80.6 MCH 26.1 L MCHC 32.4 RDW Std Deviation 37.6 RDW Coeff of Alec 12.8 Plt Count 304 MPV 10.9 Immature Gran % (Auto) 0.300 Neut % (Auto) 49.8 Lymph % (Auto) 38.9 [place] % (Auto) 7.7 Eos % (Auto) 2.8 Baso % (Auto) 0.5 Absolute Neuts (auto) 5.8 Absolute Lymphs (auto) 4.55 H Nucleated RBC % 0 Sodium 134 L Potassium 3.8 Chloride 103 Carbon Dioxide 26.0 Anion Gap 5 BUN 13 Creatinine 0.76 Estim Creat Clear Calc 127.57 Est GFR (MDRD) Af Amer 159 Est GFR (MDRD) Non-Af 131 BUN/Creatinine Ratio 17.0 Glucose 278 H Calcium 9.1 Troponin I High Sens < 3 L Radiography Diagnostic Testing: Clinical Impression(s) from Imaging Studies Chest X-Ray 11/17/22 00:13 IMPRESSION: No radiographic evidence of acute cardiopulmonary disease. Electronically Signed: Svetlana Solo MD at 0:38 EDT Reading Location ID and State: [facility] / [place] Tel , Service support , EKG Initial EKG: Comments: My independent interpretation of the patient's EKG is a sinus rhythm with tachycardic rate at 115. No ectopy noted. Slight variation in QRS size through respiratory cycle. No acute ST elevation or depression. MI interval, QRS duration and QTc are normal. Discharge Plan Triage Chief Complaint: Chest Pain ED Provider: Jimmie Palomino Dx/Rx/DC Orders Clinical Impression: Left-sided chest pain, Diabetes mellitus type 1, Tachycardia Instructions: ED Chest Pain, Uncertain Cause Prescriptions: No Action ferrous sulfate [FeroSul] 325 mg (65 mg iron) tablet 325 mg PO DAILY sertraline 100 mg tablet 100 mg PO DAILY Label Comments: Take 1 tablet by mouth once daily. insulin lispro 100 UNIT/ML insulin pen 30 unit SQ TIDCM Rx Instructions: +SLIDING SCALE insulin glargine [Lantus Solostar U-100 Insulin] 100 unit/mL (3 mL) insulin pen 50 unit subcut QPM potassium chloride [Klor-Con M20] 20 mEq Tablet,Er Particles/Crystals 20 meq PO BIDCM 30 Days Qty: 60 0RF pantoprazole [Protonix] 40 mg tablet,delayed release (DR/EC) 40 mg PO DAILY Qty: 60 0RF gabapentin 300 mg capsule 300 mg PO QHS Qty: 14 0RF Primary Care Provider: Deangelo Noel Referrals: Carlos Rincon MD [Med Staff - Active Staff] - As soon as possible Deangelo Noel MD [Primary Care Provider] - As soon as possible
[2022-11-17 02:00] VITALS: PULSE 115; RESP 13; O2SAT 97
== END 2022-11-17 02:32 | disposition home or self-care (01) ==
PROVIDERS: Emergency Provider Emergency Medicine; PCP Family Medicine; Visit Provider Emergency Medicine
DX: R07.9 Chest pain, unspecified (principal); E11.9 Type 2 diabetes mellitus without complications; R00.0 Tachycardia, unspecified; F17.210 Nicotine dependence, cigarettes, uncomplicated
CPT/HCPCS: 71045; 71275; 80048; 84484; 85025; 93005; 99285; Q9967; A4216

== ENCOUNTER 2022-12-03 20:02 | Emergency (ER) | payer MEDICAID, SELFPAY ==
[2022-12-03 20:03] VITALS: BP 131/86; PULSE 119; RESP 18; TEMP 36.6; O2SAT 100; BMI 22.0
--- NOTE | 2022-12-03 20:06 | EKG12_ITS ---
Test Reason : CP Blood Pressure : / mmHG Vent. Rate : 116 BPM Atrial Rate : 116 BPM P-R Int : 144 ms QRS Dur : 082 ms QT Int : 308 ms P-R-T Axes : 064 069 060 degrees QTc Int : 428 ms Sinus tachycardia Otherwise normal ECG Confirmed by MEGAN MIRELES, NIKKI ([id number]), photo editor COREY MICHAEL ([id number]) on 12/07/2022 11:49:20 AM Referred By: CELIA Confirmed By:CHAVEZ GUZMAN MD
[2022-12-03 20:07] VITALS: O2SAT 100
--- NOTE | 2022-12-03 20:20 | RAD_ITS ---
EXAM: XR CHEST, 1 VIEW CLINICAL INDICATION: chest pain TECHNIQUE: Frontal view of the chest. This report was created using [employer] report generation technology. COMPARISON: 11/17/2022 FINDINGS: LUNGS AND PLEURAL SPACES: Unremarkable. No consolidation or edema. No pneumothorax. No effusion. HEART: Unremarkable. Cardiac silhouette not enlarged. MEDIASTINUM: Central airways and mediastinal contour are unremarkable. BONES/JOINTS: Unremarkable. SOFT TISSUES: Unremarkable. RAD/Chest 1 View (Portable) IMPRESSION: No radiographic evidence of acute cardiopulmonary disease. Electronically Signed: Ted Dawson MD at 20:53 EDT ,
[2022-12-03 20:43] LABS: Absolute Lymphocyte Count 3.71 X10^3/uL (0.83-4.51); Absolute Neutrophil Count 8.6 X10^3/uL (2.0-7.7); Basophil# 0.05 X10^3/uL; Basophil% 0.4 % (0-1); Eosinophil# 0.27 X10^3/uL; Hematocrit 43.2 % (40-54); Hemoglobin 13.2 g/dL (13.0-16.5); Lymphocyte # 3.71 X10^3/ul (0.83-4.51); Lymphocyte % 26.9 % (19-41); Mean Corp Hgb Conc 30.6 g/dL (32-36); Mean Corpuscular Hgb 25.7 pg (27.0-32.0); Mean Platelet Vol. 10.9 fl (6.2-12.0); NRBC Flagged by Analyzer 0 % (0-5); Neutrophil # 8.63 X10^3/uL (2.7-7.7); Neutrophil % 62.3 % (47-70); Platelet Count 348 K/mm3 (150-450); RBC Distribution Width CV 13.4 % (11.6-14.6); RBC Distribution Width SD 41.1 fl (35.1-43.9); Red Blood Count 5.14 M/mm3 (4.6-6.2); White Blood Count 13.8 K/mm3 (4.4-11.0)
[2022-12-03 20:58] VITALS: BP 150/96; PULSE 121; RESP 16; O2SAT 100
[2022-12-03 21:05] LABS: Anion Gap 5 (5-15); BUN 11 mg/dL (7-18); BUN/Creat Ratio 16.6 RATIO (10-20); Calcium,Total 8.9 mg/dL (8.5-10.1); Chloride 105 mmol/L (98-107); Creatinine, Serum 0.66 mg/dL (0.70-1.30); EST Glomerular Filtration Rate 155 mL/min (>60); Est Glom Filt Rate - Afr Amer 187 mL/min (>60); Glucose 64 mg/dL (74-106); Potassium 3.6 mmol/L (3.5-5.1); Sodium Level 138 mmol/L (136-145); Troponin-I HS (w/2H Reflex) 3 pg/mL (3.0-78.0)
--- NOTE | 2022-12-03 21:19 | EDS_ITS ---
HPI History of Present Illness Chief Complaint: Chest Pain Narrative Narrative: 27-year-old male presenting with chest pain. He described it as stabbing in the center of his chest. He has a history of type 1 diabetes. He states he has no other medical problems. He does state that his mother of a massive heart attack when she was 26. He states that his father has cardiac. Patient states the onset of this was a couple of hours ago. He denies any fevers or chills. He denies any nausea or vomiting. He does state he is mildly short of breath. He states that he had tachycardia in the past and has worn a Holter monitor. There was no findings such as A-fib. He states he has not followed up with his PCP for stress test. He has not seen cardiology. He states he smokes occasionally. He is not an everyday smoker. Denies drug use. No history of DVT/PE. [facility] Medical History Anxiety Depression H/O fracture of skull Learning difficulty due to cognitive limitations Septic shock Type 1 diabetes mellitus Type I diabetes mellitus, uncontrolled Home Medications ferrous sulfate 325 mg (65 mg iron) tablet (FeroSul) 325 mg PO DAILY supplement 03/05/21 [History Last Taken 03/04/21] insulin lispro 100 unit/mL subcutaneous pen 30 unit SQ TIDCM short acting insulin 03/05/21 [History Last Taken 03/04/21] sertraline 100 mg tablet 100 mg PO DAILY DEPRESSION 03/05/21 [History Last Taken 03/04/21] insulin glargine 100 unit/mL (3 mL) subcutaneous pen (Lantus Solostar U-100 Insulin) 50 unit subcut QPM diabetes 08/18/22 [History Last Taken Unknown] pantoprazole 40 mg tablet,delayed release (Protonix) 40 mg PO DAILY #60 tabs 08/20/22 [Rx Last Taken Unknown] potassium chloride 20 mEq tablet,extended release(part/cryst) (Klor-Con M) 20 meq PO BIDCM 30 days #60 tabs 08/20/22 [Rx Last Taken Unknown] gabapentin 300 mg capsule 300 mg PO QHS #14 caps 08/24/22 [Rx Last Taken Unknown] Allergy/AdvReac Type Severity Reaction Status Date / Time gluten AdvReac Nausea/Vom/ Verified 08/18/22 09:37 Diarrhea wheat AdvReac Nausea Verified 08/18/22 09:37 Family History Father Diabetes Surgical History H/O skin graft Social History household members: family Smoking Status: Current some day smoker tobacco type: cigarettes and smokeless tobacco Smokeless tobacco user: chewing tobacco second hand exposure: Yes alcohol intake: never substance use type: does not use ROS ROS ED Constitutional Constitutional ED: Denies chills or fever(s) Eyes Eyes: Denies blurry vision or change in vision ENT ENT ED: Denies rhinorrhea or sore throat Cardiovascular Cardiovascular: Reports as per HPI Respiratory/Chest Respiratory/Chest: Reports dyspnea; Denies cough Gastrointestinal Gastrointestinal: Denies abdominal pain, nausea or vomiting Genitourinary Genitourinary ED: Denies dysuria or hematuria Musculoskeletal Musculoskeletal: Denies arthralgias or back pain Integumentary Denies abscess or Abrasions Neurologic Neurologic: Denies headache(s) or paresthesias Psychiatric Psychiatric: Denies anxiety or depression EXAM Physical Exam Const Vital Signs: 12/03/22 20:03 12/03/22 20:07 12/03/22 20:35 Temperature 97.9 F Temperature Source Temporal Pulse Rate 119 H Respiratory Rate 18 Respiratory Effort Non-Labored Blood Pressure 131/86 H Blood Pressure Mean 101 Pulse Ox 100 100 Oxygen Delivery Method Room Air Room Air 12/03/22 20:58 12/03/22 22:45 Temperature Temperature Source Pulse Rate 121 H 104 H Respiratory Rate 16 18 Respiratory Effort Blood Pressure 150/96 H 127/84 H Blood Pressure Mean 114 98 Pulse Ox 100 97 Oxygen Delivery Method Room Air Room Air Heart Score History: Slightly/Non-Suspicious ECG: Normal Age: </= 45 years Risk Factors: 1 or 2 Risk Factors Troponin: </= Normal Limit Score: 1 MDM MDM MDM Narrative Medical decision making narrative: Patient presenting with chest pain. Differential diagnosis includes but is not limited to ACS, PE, pneumonia, costochondritis. CBC to assess white blood cell count, hemoglobin, differential. BMP to assess renal function, electrolytes, glucose, anion gap. High-sensitivity troponin obtained as well. Chest x-ray was also obtained. CBC shows slight leukocytosis at 13.8. Hemoglobin hematocrit stable. Platelets are normal. Renal function electrolytes within normal limits. High-sensitivity troponin is 3. CTA of the chest was obtained which shows no PE or dissection. There is no other acute process. Patient is feeling better after IV fluids and Toradol. Patient counseled on findings. R ecommended close outpatient follow-up with PCP. Return precautions discussed. Impression: 1. Chest pain Lab Data Attestation: I reviewed the patient's lab results. Labs: Laboratory Results - last 24 hr 12/03/22 12/03/22 12/03/22 20:35 20:35 21:38 WBC 13.8 H RBC 5.14 Hgb 13.2 Hct 43.2 MCV 84.0 MCH 25.7 L MCHC 30.6 L RDW Std Deviation 41.1 RDW Coeff of Alec 13.4 Plt Count 348 MPV 10.9 Immature Gran % (Auto) 0.400 Neut % (Auto) 62.3 Lymph % (Auto) 26.9 Dauphin % (Auto) 8.0 Eos % (Auto) 2.0 Baso % (Auto) 0.4 Absolute Neuts (auto) 8.6 H Absolute Lymphs (auto) 3.71 Nucleated RBC % 0 D-Dimer Quant (PE/DVT) 0.40 Sodium 138 Potassium 3.6 Chloride 105 Carbon Dioxide 28.0 Anion Gap 5 BUN 11 Creatinine 0.66 L Estim Creat Clear Calc 159.00 Est GFR (MDRD) Af Amer 187 Est GFR (MDRD) Non-Af 155 BUN/Creatinine Ratio 16.6 Glucose 64 L Calcium 8.9 Troponin I High Sens 3 Radiography Diagnostic Testing: Clinical Impression(s) from Imaging Studies Chest X-Ray 12/03/22 20:20 IMPRESSION: No radiographic evidence of acute cardiopulmonary disease. Electronically Signed: Ted Dawson MD at 20:53 EDT , Chest CTA 12/03/22 21:23 IMPRESSION: Negative CTA chest. Electronically Signed: Ted Dawson MD at 22:33 EDT , Discharge Plan Triage Chief Complaint: Chest Pain ED Provider: Edgar Calvillo Dx/Rx/DC Orders Instructions: ED Chest Pain, Noncardiac Prescriptions: No Action ferrous sulfate [FeroSul] 325 mg (65 mg iron) tablet 325 mg PO DAILY sertraline 100 mg tablet 100 mg PO DAILY Label Comments: Take 1 tablet by mouth once daily. insulin lispro 100 UNIT/ML insulin pen 30 unit SQ TIDCM Rx Instructions: +SLIDING SCALE insulin glargine [Lantus Solostar U-100 Insulin] 100 unit/mL (3 mL) insulin pen 50 unit subcut QPM potassium chloride [Klor-Con M20] 20 mEq Tablet,Er Particles/Crystals 20 meq PO BIDCM 30 Days Qty: 60 0RF pantoprazole [Protonix] 40 mg tablet,delayed release (DR/EC) 40 mg PO DAILY Qty: 60 0RF gabapentin 300 mg capsule 300 mg PO QHS Qty: 14 0RF Primary Care Provider: Deangelo Noel Referrals: Deangelo Noel MD [Primary Care Provider] - Disposition Disposition: Home, Self Care
--- NOTE | 2022-12-03 21:23 | CT_ITS ---
EXAM: CT ANGIOGRAPHY CHEST WITHOUT AND WITH INTRAVENOUS CONTRAST CLINICAL INDICATION: chest pain TECHNIQUE: Helically acquired angiography images were obtained of the chest without and with intravenous contrast. This CT exam was performed using one or more of the following dose reduction techniques: automated exposure control, adjustment of the mA and/or kV according to patient size, and/or use of iterative reconstruction technique. This report was created using [employer] report generation technology. MIP reconstructed images were created and reviewed. CONTRAST: IV 100mL Isovue-370 COMPARISON: 11/17/2022 FINDINGS: PULMONARY ARTERIES: Unremarkable. Normal in caliber. No evidence of pulmonary embolism. AORTA: Unremarkable. Normal in caliber. No evidence of dissection. GREAT VESSELS OF AORTIC ARCH: Unremarkable. Normal in caliber. No evidence of dissection. LUNGS AND PLEURAL SPACES: Unremarkable. No mass. No consolidation or edema. No pleural effusion or thickening. No pneumothorax. HEART: Unremarkable. Heart size is normal. No pericardial effusion. No significant coronary artery calcifications. MEDIASTINUM: Unremarkable. No mediastinal or hilar adenopathy. Esophagus is unremarkable. No hiatal hernia. THYROID: Unremarkable. No thyroid lesions. BONES/JOINTS: Unremarkable. No suspicious lytic or blastic abnormality. CT/CTA Chest W/WO Contrast IMPRESSION: Negative CTA chest. Electronically Signed: Ted Dawson MD at 22:33 EDT ,
[2022-12-03] MEDS: Ketorolac 15 MG/ML Vial IV (22:44)
[2022-12-03] MEDS: 0.9% Normal Saline 1,000 ML 999 ML IV (22:44)
[2022-12-03 22:45] VITALS: BP 127/84; PULSE 104; RESP 18; O2SAT 97
== END 2022-12-03 23:27 | disposition home or self-care (01) ==
PROVIDERS: Emergency Provider Student in an Organized Health Care Education/Training Program; PCP Family Medicine; Visit Provider Student in an Organized Health Care Education/Training Program
DX: R07.9 Chest pain, unspecified (principal); E10.9 Type 1 diabetes mellitus without complications; Z79.4 Long term (current) use of insulin; F17.210 Nicotine dependence, cigarettes, uncomplicated; F17.220 Nicotine dependence, chewing tobacco, uncomplicated; Z82.49 Family history of ischemic heart disease and other diseases of the circulatory system
CPT/HCPCS: 71045; 71275; 80048; 84484; 85025; 85379; 93005; 96361; 96374; 99285; J7030; Q9967; A4216

== ENCOUNTER 2022-12-09 17:38 | Emergency (ER) | payer MEDICAID, SELFPAY ==
[2022-12-09 17:39] VITALS: BP 94/63; PULSE 152; RESP 16; TEMP 36.6; O2SAT 99
--- NOTE | 2022-12-09 17:40 | NURSING ---
NO OLD EKGS
--- NOTE | 2022-12-09 17:57 | ED.VIS.CHEST ---
HPI History of Present Illness Chief Complaint: Chest Pain Narrative Narrative: 27-year-old male here for chest pain. Patient states he is chest pain on and off. He has a stress test scheduled for tomorrow. He notes dizziness as well. Denies focal neurologic deficits. States the past chest pain is intermittent, not exertional, not pleuritic. Patient denies sudden onset of pain, no tearing sensation, no migratory symptoms, no new numbness, weakness or loss of sensation. Patient denies family history or personal history of Marfan syndrome or Paula-Danlos my dissection. Notes nonbloody nonbilious vomitus. Denies bleeding diathesis. Denies cough or recent illness. [facility] Medical History Anxiety Depression H/O fracture of skull Learning difficulty due to cognitive limitations Septic shock Type 1 diabetes mellitus Type I diabetes mellitus, uncontrolled Home Medications ferrous sulfate 325 mg (65 mg iron) tablet (FeroSul) 325 mg PO DAILY supplement 03/05/21 [History Last Taken 03/04/21] insulin lispro 100 unit/mL subcutaneous pen 30 unit SQ TIDCM short acting insulin 03/05/21 [History Last Taken 03/04/21] sertraline 100 mg tablet 100 mg PO DAILY DEPRESSION 03/05/21 [History Last Taken 03/04/21] insulin glargine 100 unit/mL (3 mL) subcutaneous pen (Lantus Solostar U-100 Insulin) 50 unit subcut QPM diabetes 08/18/22 [History Last Taken Unknown] pantoprazole 40 mg tablet,delayed release (Protonix) 40 mg PO DAILY #60 tabs 08/20/22 [Rx Last Taken Unknown] potassium chloride 20 mEq tablet,extended release(part/cryst) (Klor-Con M) 20 meq PO BIDCM 30 days #60 tabs 08/20/22 [Rx Last Taken Unknown] gabapentin 300 mg capsule 300 mg PO QHS #14 caps 08/24/22 [Rx Last Taken Unknown] ondansetron 4 mg disintegrating tablet 4 mg PO Q8H PRN PRN Nausea #10 tabs 12/09/22 [Rx Last Taken Unknown] Allergy/AdvReac Type Severity Reaction Status Date / Time gluten AdvReac Nausea/Vom/ Verified 08/18/22 09:37 Diarrhea wheat AdvReac Nausea Verified 08/18/22 09:37 Family History Father Diabetes Surgical History H/O skin graft Social History household members: family Smoking Status: Current some day smoker tobacco type: cigarettes and smokeless tobacco Smokeless tobacco user: chewing tobacco second hand exposure: Yes alcohol intake: never substance use type: does not use ROS ROS ED ROS Narrative Constitutional: Denies fever HEENT: Denies sore throat Neck: Denies neck pain Cardiovascular: Endorses chest pain Respiratory: Denies shortness of breath GI: Denies nausea vomiting or abdominal pain : Denies changes in urinary habits Musculoskeletal: Denies muscle or joint pain Neurologic: Denies numbness weakness or loss of sensation Skin denies rash EXAM Physical Exam Narrative Exam Narrative: Nursing triage notes reviewed, Vital signs reviewed Constitutional: please see mdm HENT: MMM Eyes: Pupils equal round and reactive to light, Extraocular muscles intact Neck: No stridor, no JVD, full neck ROM Lungs: Clear to auscultation, No wheezing or rales. No increased work of breathing, no conversational dyspnea, no accessory muscle use, no nasal flaring. No respiratory distress noted Heart: Regular rate and rhythm, No murmurs, No rubs and No gallops, 2+ distal pulses (radial, femoral, posterior tibial) in all extremities Abdomen: Soft, there is no tenderness, rigidity, rebound or guarding, no obvious peritoneal signs, no palpable pulsatile abdominal masses, no auscultated abdominal bruit : No CVAT Extremities: No edema Neuro: No focal neurological deficits, cranial nerves II through XII intact, 5/5 strength in all extremities. Intact sensation to light touch in all extremities, 2+ reflexes bilateral patella dens. Normal gait. No ataxia. Skin: No rash or lesions noted Const Vital Signs: 12/09/22 17:39 12/09/22 18:04 12/09/22 18:41 Temperature 97.9 F Temperature Source Temporal Pulse Rate 152 H Respiratory Rate 16 Respiratory Effort Normal Blood Pressure 94/63 Blood Pressure Mean 73 Pulse Ox 99 Oxygen Delivery Method Room Air Room Air 12/09/22 20:08 12/09/22 21:44 Temperature Temperature Source Pulse Rate 117 H 110 H Respiratory Rate 17 18 Respiratory Effort Blood Pressure Blood Pressure Mean Pulse Ox 99 Oxygen Delivery Method Room Air Heart Score History: Slightly/Non-Suspicious ECG: Normal Age: </= 45 years Risk Factors: 1 or 2 Risk Factors Troponin: </= Normal Limit Score: 1 MDM MDM MDM Narrative Medical decision making narrative: Chief Complaint: Chest pain External records reviewed: No recent cardiac catheterizations, stress test or echocardiograms noted in the chart MDM: Patient was initially tachycardic otherwise hemodynamically stable afebrile nontoxic-appearing. I considered the following differential diagnosis: PE, ACS, arrhythmia, car ischemia, dehydration, DKA I obtained a broad lab and imaging work-up to further elucidate etiology patient complaints. Treat the patient symptomatically with IV fluid and aspirin. Labs without evidence of significant anemia, leukocytosis to suggest systemic inflammation. D-dimer negative. No evidence of VTE. Labs not evidence of DKA. Chest x-ray without evidence of esophageal rupture, pneumonia pneumothorax or other abnormality. Patient's vital signs improved without significant intervention. He noted he felt symptomatically better. Patient had ongoing tachycardia. I suggest the patient be observed in emergency department for ongoing fluids and ongoing evaluation however he refused that he like to go home because he felt better. He is alert and orient x3 had capacity make his own medical decision and chose to be discharged rather than observed or admitted for further evaluation of his elevated heart rate. Of note the patient's heart rate is typically elevated specifically referring to his prior ED visit on 12/03/2022 with a heart rate of 121 down to 104. He did request a prescription for antinausea medicine which was provided. Patient was told return to the emergency department if symptoms change or worsen in any way follow-up with primary care physician as well as quality assurance tech at the next available appointment as well. PE less likely given low risk Wells score. Aortic dissection is thought to be less likely given no sudden ripping or tearing pain, migratory pain, palpable pulse inequalities, no focal neurologic deficits concurrent with chest pain. Chance of dissection less than 08/1999. Pericarditis less likely given no pathognomonic EKG changes (no diffuse ST elevations, NC depressions). GI etiology (i.e. Boerhaave syndrome) less likely given no chest or neck crepitus, no vomiting or forced retching. I completed a HEART Score to screen for Major Adverse Cardiac Event (MACE) in this patient. The evidence indicates that the patient is very low risk for MACE and this is consistent with my clinical intuition. The risk of further workup or hospitalization for MACE is likely higher than the risk of the patient having a MACE. It is, therefore, in the patient?s best interest not to do additional emergent testing or to be hospitalized for MACE at this time. Shared Decision-Making No hospitalization indicated I have discussed with the patient my clinical impression and the result of the HEART Score to screen for MACE, as well as the risks of further testing and hospitalization. The HEART Score shows that the risk for MACE is less than 1%. Although the risk of MACE has not been completely eliminated, the risks of further testing or hospitalization for MACE likely exceed any potential benefit, and the patient agrees with not pursuing further emergent evaluation or hospitalization for MACE at this time. Factors affecting care: Type 1 diabetes Social determinants of health: Poor health literacy History obtained from others: None Consults: None Lab Data Attestation: I reviewed the patient's lab results. Lab results narrative: EKG with sinus tachycardia, normal axis, normal intervals, no STEMI, no signs of right heart strain to suggest VTE CBC without leukocytosis, severe anemia, no thrombocytopenia. D-dimer negative making VTE less likely BMP with hyponatremia, no anion gap or significant low bicarb to suggest DKA Troponin is negative, no evidence of myocardial ischemia Serum acetone negative BNP within normal limits not suggestive of volume overload VBG without evidence of metabolic acidosis or decreased bicarb to suggest DKA Labs: Laboratory Results - last 24 hr 12/09/22 12/09/22 12/09/22 18:52 18:52 18:52 WBC 9.6 RBC 6.66 H Hgb 17.0 H Hct 52.9 MCV 79.4 L MCH 25.5 L MCHC 32.1 RDW Std Deviation 38.5 RDW Coeff of Alec 13.4 Plt Count 405 MPV 10.8 Immature Gran % (Auto) 0.200 Neut % (Auto) 47.9 Lymph % (Auto) 42.1 H Gray % (Auto) 7.3 Eos % (Auto) 1.9 Baso % (Auto) 0.6 Absolute Neuts (auto) 4.6 Absolute Lymphs (auto) 4.06 Nucleated RBC % 0 D-Dimer Quant (PE/DVT) < 0.27 L Sodium 133 L Potassium 5.0 Chloride 96 L Carbon Dioxide 28.0 Anion Gap 9 BUN 18 Creatinine 1.10 Estim Creat Clear Calc 91.04 Est GFR (MDRD) Af Amer 104 Est GFR (MDRD) Non-Af 86 BUN/Creatinine Ratio 16.4 Glucose 396 H Calcium 10.6 H Troponin I High Sens 4 B-Natriuretic Peptide Acetone Level 12/09/22 12/09/22 18:52 18:52 WBC RBC Hgb Hct MCV MCH MCHC RDW Std Deviation RDW Coeff of Alec Plt Count MPV Immature Gran % (Auto) Neut % (Auto) Lymph % (Auto) Gray % (Auto) Eos % (Auto) Baso % (Auto) Absolute Neuts (auto) Absolute Lymphs (auto) Nucleated RBC % D-Dimer Quant (PE/DVT) Sodium Potassium Chloride Carbon Dioxide Anion Gap BUN Creatinine Estim Creat Clear Calc Est GFR (MDRD) Af Amer Est GFR (MDRD) Non-Af BUN/Creatinine Ratio Glucose Calcium Troponin I High Sens B-Natriuretic Peptide 2.7 Acetone Level NEGATIVE ABG Data ABG results: ABG 12/09/22 19:50 Specimen Type JAIDEN VBG pH 7.43 H VBG pO2 53 H VBG HCO3 21 L VBG Total CO2 22 L VBG O2 Sat (Calc) 88 H VBG Base Excess -3 L POC Mix VBG pCO2 Pt Tmp 32.1 L Radiography Chest X-Ray - ED: Read by ED Physician Diagnostic Testing: Clinical Impression(s) from Imaging Studies Chest X-Ray 12/09/22 18:25 IMPRESSION: No acute cardiopulmonary pathology Electronically Signed: Guillermo Espino MD at 18:40 EDT Reading Location ID and State: [facility] / [place] , Service support , I have personally reviewed the patient's chest x-ray. Chest x-ray is unremarkable for pulmonary edema, pneumothorax, pneumonia or focal cardiopulmonary abnormality. Discharge Plan Triage Chief Complaint: Chest Pain ED Provider: Davidson Lynn Dx/Rx/DC Orders Clinical Impression: Nausea & vomiting, Type 1 diabetes, Chest pain Instructions: Chest Pain [facility] Prescriptions: New ondansetron 4 mg tablet,disintegrating 4 mg PO Q8H PRN PRN (Reason: Nausea) Qty: 10 0RF No Action ferrous sulfate [FeroSul] 325 mg (65 mg iron) tablet 325 mg PO DAILY sertraline 100 mg tablet 100 mg PO DAILY Label Comments: Take 1 tablet by mouth once daily. insulin lispro 100 UNIT/ML insulin pen 30 unit SQ TIDCM Rx Instructions: +SLIDING SCALE insulin glargine [Lantus Solostar U-100 Insulin] 100 unit/mL (3 mL) insulin pen 50 unit subcut QPM potassium chloride [Klor-Con M20] 20 mEq Tablet,Er Particles/Crystals 20 meq PO BIDCM 30 Days Qty: 60 0RF pantoprazole [Protonix] 40 mg tablet,delayed release (DR/EC) 40 mg PO DAILY Qty: 60 0RF gabapentin 300 mg capsule 300 mg PO QHS Qty: 14 0RF Primary Care Provider: Deangelo Noel Referrals: Deangelo Noel MD [Primary Care Provider] - Activity Restrictions/Additional Instructions: Thank you for trusting us with your care today! Please take Tylenol (2 pills, 650 mg), ibuprofen (2 pills, 400 mg) every 6 hours as needed for pain and fever control. Please return to the emergency department if your symptoms change or worsen. Please take Zofran as needed for nausea and vomiting. Please return if he cannot tolerate medicine or food by mouth. Please follow with your primary care physician for further outpatient evaluation and management. Disposition Disposition: Home, Self Care Discharge Date/Time: 12/09/22 21:59
[2022-12-09 18:04] VITALS: BMI 20.4
--- NOTE | 2022-12-09 18:25 | RAD_ITS ---
STUDY: X-RAY CHEST REASON FOR EXAM: Male, 27 years old. chest pain TECHNIQUE: AP portable COMPARISON: December 03, 2022 FINDINGS: The lungs are clear and expanded. There is no demonstrated pleural abnormality. Normal size heart. Normal mediastinum and nikolas. Normal visualized pulmonary arteries. Normal visualized aortic arch and descending thoracic aorta. Dorsal spine demonstrates minor dextroscoliosis or splinting secondary to muscle spasm. Normal visualized ribs, clavicles, and shoulders. There is no demonstrated abnormality of the visualized soft tissue structures of the upper abdomen. RAD/Chest 1 View (Portable) IMPRESSION: No acute cardiopulmonary pathology Electronically Signed: Guillermo Espino MD at 18:40 EDT ,
[2022-12-09] MEDS: Aspirin 81 MG TAB.CHEW 324 MG PO (18:26)
[2022-12-09] MEDS: 0.9% Normal Saline 1,000 ML 999 ML IV (18:56)
[2022-12-09 19:01] LABS: Absolute Lymphocyte Count 4.06 X10^3/uL (0.83-4.51); Absolute Neutrophil Count 4.6 X10^3/uL (2.0-7.7); Basophil# 0.06 X10^3/uL; Basophil% 0.6 % (0-1); Eosinophil# 0.18 X10^3/uL; Eosinophils% 1.9 % (0-5); Hematocrit 52.9 % (40-54); Lymphocyte # 4.06 X10^3/ul (0.83-4.51); Lymphocyte % 42.1 % (19-41); Mean Corp Hgb Conc 32.1 g/dL (32-36); Mean Corpuscular Hgb 25.5 pg (27.0-32.0); Mean Corpuscular Volume 79.4 fL (80-94); Mean Platelet Vol. 10.8 fl (6.2-12.0); Monocyte% 7.3 % (0-10); NRBC Flagged by Analyzer 0 % (0-5); Neutrophil # 4.62 X10^3/uL (2.7-7.7); Neutrophil % 47.9 % (47-70); Platelet Count 405 K/mm3 (150-450); RBC Distribution Width CV 13.4 % (11.6-14.6); RBC Distribution Width SD 38.5 fl (35.1-43.9); Red Blood Count 6.66 M/mm3 (4.6-6.2); White Blood Count 9.6 K/mm3 (4.4-11.0)
[2022-12-09 19:17] LABS: BNP,B-Type NATRIURETIC PEPTIDE 2.7 pg/mL (0-100)
[2022-12-09 19:21] LABS: Anion Gap 9 (5-15); BUN 18 mg/dL (7-18); BUN/Creat Ratio 16.4 RATIO (10-20); Calcium,Total 10.6 mg/dL (8.5-10.1); Chloride 96 mmol/L (98-107); EST Glomerular Filtration Rate 86 mL/min (>60); Est Glom Filt Rate - Afr Amer 104 mL/min (>60); Estimated Creatinine Clearance 91.04 ml/min; Glucose 396 mg/dL (74-106); Sodium Level 133 mmol/L (136-145); Troponin-I HS 4 pg/mL (3.0-78.0)
[2022-12-09 19:27] LABS: D-Dimer Quantitative (DVT/PE) < 0.27 FEU/ug/m (0.27-0.49)
[2022-12-09 19:56] LABS: Blood Gas Specimen Type VEN; VBG BASE EXCESS -3 mmol/L (-1.0-3.5); VBG Bicarbonate 21 mmol/L (22-26); VBG PO2 53 mmHg (25-40); VBG SO2 88 % (50-70); VBG TCO2 22 mmol/L (23-33); VBG pCO2 32.1 mmHg (41-51); VBG pH 7.43 (7.32-7.42)
[2022-12-09 20:08] VITALS: PULSE 117; RESP 17; O2SAT 99
[2022-12-09 21:44] VITALS: PULSE 110; RESP 18
== END 2022-12-09 21:59 | disposition home or self-care (01) ==
PROVIDERS: Emergency Provider Emergency Medicine; PCP Family Medicine; Visit Provider Emergency Medicine
DX: R11.2 Nausea with vomiting, unspecified (principal); E10.9 Type 1 diabetes mellitus without complications; R07.9 Chest pain, unspecified; F17.210 Nicotine dependence, cigarettes, uncomplicated
CPT/HCPCS: 71045; 80048; 82009; 82803; 83880; 84484; 85025; 85379; 93005; 96360; 96361; 99284; J7030; A4216

== ENCOUNTER 2023-01-03 22:17 | Emergency (ER) | payer MEDICAID, SELFPAY ==
[2023-01-03 22:18] VITALS: BP 145/99; PULSE 124; RESP 12; TEMP 35.9; O2SAT 98; BMI 19.9
[2023-01-03 22:35] LABS: Absolute Lymphocyte Count 5.11 X10^3/uL (0.83-4.51); Absolute Neutrophil Count 5.5 X10^3/uL (2.0-7.7); Basophil# 0.07 X10^3/uL; Basophil% 0.6 % (0-1); Eosinophil# 0.39 X10^3/uL; Eosinophils% 3.2 % (0-5); Hematocrit 39.9 % (40-54); Hemoglobin 12.7 g/dL (13.0-16.5); Lymphocyte # 5.11 X10^3/ul (0.83-4.51); Lymphocyte % 42.3 % (19-41); Mean Corp Hgb Conc 31.8 g/dL (32-36); Mean Corpuscular Hgb 26.1 pg (27.0-32.0); Mean Corpuscular Volume 81.9 fL (80-94); Mean Platelet Vol. 10.6 fl (6.2-12.0); Monocyte# 0.94 X10^3/uL; Monocyte% 7.8 % (0-10); NRBC Flagged by Analyzer 0 % (0-5); Neutrophil # 5.52 X10^3/uL (2.7-7.7); Neutrophil % 45.8 % (47-70); POSITIVE DIFFERENTIAL YES; Platelet Count 357 K/mm3 (150-450); RBC Distribution Width CV 14.3 % (11.6-14.6); RBC Distribution Width SD 41.9 fl (35.1-43.9); Red Blood Count 4.87 M/mm3 (4.6-6.2); White Blood Count 12.1 K/mm3 (4.4-11.0)
--- NOTE | 2023-01-03 22:35 | RAD_ITS ---
INDICATION: chest pain EXAMINATION/TECHNIQUE: X-RAY - XR Chest 1 View COMPARISON: 12/09/2022. FINDINGS: The lungs are clear. The cardiomediastinal silhouette is unremarkable. No pleural effusion or pneumothorax. No acute osseous abnormalities. RAD/Chest 1 View (Portable) IMPRESSION: No acute radiographic abnormalities. Electronically Signed: Maykel Hoang MD at 23:16 EDT ,
[2023-01-03 22:48] LABS: Differential Indicated SCAN CRITERIA MET
[2023-01-03] MEDS: Aspirin 81 MG TAB.CHEW 324 MG PO (22:48)
[2023-01-03 22:53] LABS: Differential Comment SCANNED
--- NOTE | 2023-01-03 22:59 | EDS_ITS ---
HPI History of Present Illness Chief Complaint: Chest Pain Informant: patient Onset/Context/Timing Onset: Today Activity at onset: sudden Timing: Continuous Quality: Positive for Sharp Location: Left Chest Worsened By: - (Standing) Relieved By: Nothing Associated Symptoms: Positive for Nausea, Vomiting, Dyspnea and Lightheadedness; Negative for Diaphoresis, Cough, Fever, Acid Reflux or Palpitations Narrative Narrative: Patient presents with chest pain that began today. Patient states it came on rather suddenly. Patient states it has been constant over the past 10 hours. Patient describes it as sharp. Patient states it is over the left side of his chest. Patient states it is worse with standing. Patient states nothing makes it better. Patient admits to some nausea and vomiting. Patient also admits to some shortness of breath and dizziness. Patient denies any fevers or chills. Patient denies any cough. Patient denies any palpitations. CVD Risk Factors: Positive for Diabetes and Smoking; Negative for Hypertension, Hypercholesterolemia or Family History 1' </=55 PE Risk Factors: Negative for Recent Travel/Surgery, Recent Immobilization, Prior DVT or PE, Cancer or OCP + Smoking + >/=35 PFSH PFSH Medical History Anxiety Depression H/O fracture of skull Learning difficulty due to cognitive limitations Septic shock Type 1 diabetes mellitus Type I diabetes mellitus, uncontrolled Home Medications ferrous sulfate 325 mg (65 mg iron) tablet (FeroSul) 325 mg PO DAILY supplement 03/05/21 [History Last Taken 03/04/21] insulin lispro 100 unit/mL subcutaneous pen 30 unit SQ TIDCM short acting i nsulin 03/05/21 [History Last Taken 03/04/21] sertraline 100 mg tablet 100 mg PO DAILY DEPRESSION 03/05/21 [History Last Taken 03/04/21] insulin glargine 100 unit/mL (3 mL) subcutaneous pen (Lantus Solostar U-100 Insulin) 50 unit subcut QPM diabetes 08/18/22 [History Last Taken Unknown] pantoprazole 40 mg tablet,delayed release (Protonix) 40 mg PO DAILY #60 tabs 08/20/22 [Rx Last Taken Unknown] potassium chloride 20 mEq tablet,extended release(part/cryst) (Klor-Con M) 20 meq PO BIDCM 30 days #60 tabs 08/20/22 [Rx Last Taken Unknown] gabapentin 300 mg capsule 300 mg PO QHS #14 caps 08/24/22 [Rx Last Taken Unknown] ondansetron 4 mg disintegrating tablet 4 mg PO Q8H PRN PRN Nausea #10 tabs 12/09/22 [Rx Last Taken Unknown] Allergy/AdvReac Type Severity Reaction Status Date / Time gluten AdvReac Nausea/Vom/ Verified 01/03/23 22:22 Diarrhea wheat AdvReac Nausea Verified 01/03/23 22:22 Family History Father Diabetes Surgical History H/O skin graft Social History household members: family Smoking Status: Current some day smoker tobacco type: cigarettes and smokeless tobacco Smokeless tobacco user: chewing tobacco second hand exposure: Yes alcohol intake: never substance use type: does not use ROS ROS ED Constitutional Constitutional ED: Denies chills or fever(s) Eyes Eyes: Denies blurry vision or change in vision ENT ENT ED: Denies rhinorrhea or sore throat Cardiovascular Cardiovascular: Reports chest pain; Denies palpitations Respiratory/Chest Respiratory/Chest: Reports dyspnea; Denies cough Gastrointestinal Gastrointestinal: Reports nausea and vomiting; Denies abdominal pain Genitourinary Genitourinary ED: Denies dysuria or hematuria Musculoskeletal Musculoskeletal: Denies back pain or neck pain Integumentary Denies abscess or rash Neurologic Neurologic: Denies headache(s) or weakness Allergic/Immunologic Allergic/Immunologic ED: Denies mouth swelling or urticaria EXAM Physical Exam Const Vital Signs: 01/03/23 22:18 01/03/23 22:21 01/03/23 22:42 Temperature 96.6 F L Temperature Source Temporal Pulse Rate 124 H Respiratory Rate 12 Respiratory Effort Normal Blood Pressure 145/99 H Blood Pressure Mean 114 Pulse Ox 98 Oxygen Delivery Method Room Air Room Air 01/03/23 23:17 Temperature Temperature Source Pulse Rate 110 H Respiratory Rate 16 Respiratory Effort Blood Pressure 133/94 H Blood Pressure Mean 107 Pulse Ox 98 Oxygen Delivery Method Room Air Positive well nourished and well developed General Appearance ED: well developed and NAD HEENT normocephalic and atraumatic Eyes PERRL and EOMs intact bilaterally Neck supple and no JVD Chest Wall palpation of chest normal Resp normal respiratory effort and clear to auscultation bilaterally Effort and Inspection: Negative for respiratory distress Cardio regular rhythm Rate: tachycardic GI normal to inspection, nondistended, normoactive bowel sounds, soft to palpation, non-tender and non-distended Extremity normal to inspection General Extremety ED: Negative for edema or tenderness General Extremity: Negative for edema Neuro oriented x3, CN's II-XII intact bilaterally and no sensory deficits noted Sensorium / Orientation: awake and alert Motor Exam: strength 5/5 throughout Psych mental status grossly normal Heart Score History: Slightly/Non-Suspicious ECG: Normal Age: </= 45 years Risk Factors: >/= 3 Risk Factors or History of CAD Troponin: </= Normal Limit Score: 2 MDM MDM MDM Narrative Medical decision making narrative: Differential diagnosis includes cardiac dysrhythmia, cardiac ischemia, anxiety, musculoskeletal pain, pneumonia, pneumothorax, and pleurisy. EKG will be obtained to assess for cardiac dysrhythmia and cardiac ischemia. Chest x-ray will be obtained to assess for pneumonia and pneumothorax. CBC will be obtained to assess for leukocytosis and anemia. Basic metabolic profile will be obtained to assess for electrolyte abnormality and renal function. High-sensitivity troponin will be obtained to assess for cardiac ischemia. Lab Data Attestation: I reviewed the patient's lab results. Lab results narrative: CBC was reviewed. There is a mild leukocytosis of 12.1. Hemoglobin was 12.7 and hematocrit was 39.9. Platelets were normal. Basic metabolic profile was reviewed. Glucose was 504. There is a mild hyponatremia of 132. Anion gap was normal. CO2 was normal. The remainder was within normal limits. High- sensitivity troponin was normal at 4. Labs: Laboratory Results - last 24 hr 01/03/23 01/03/23 22:27 22:27 WBC 12.1 H RBC 4.87 Hgb 12.7 L Hct 39.9 L MCV 81.9 MCH 26.1 L MCHC 31.8 L RDW Std Deviation 41.9 RDW Coeff of Alec 14.3 Plt Count 357 MPV 10.6 Immature Gran % (Auto) 0.300 Neut % (Auto) 45.8 L Lymph % (Auto) 42.3 H [place] % (Auto) 7.8 Eos % (Auto) 3.2 Baso % (Auto) 0.6 Absolute Neuts (auto) 5.5 Absolute Lymphs (auto) 5.11 H Nucleated RBC % 0 Differential Comment SCANNED Sodium 132 L Potassium 4.7 Chloride 97 L Carbon Dioxide 23.0 Anion Gap 12 BUN 15 Creatinine 0.87 Estim Creat Clear Calc 122.45 Est GFR (MDRD) Af Amer 136 Est GFR (MDRD) Non-Af 113 BUN/Creatinine Ratio 17.2 Glucose 504 H* Calcium 8.6 Troponin I High Sens 4 Radiography Diagnostic Testing: Clinical Impression(s) from Imaging Studies Chest X-Ray 01/03/23 22:35 IMPRESSION: No acute radiographic abnormalities. Electronically Signed: Maykel Hoang MD at 23:16 EDT , Portable 1 view chest x-ray was obtained. On my independent interpretation, lung serna are clear. There is normal cardiac silhouette. Bony thorax is normal. There is no acute process noted. Radiologist also interpreted the x- ray and agrees. EKG Initial EKG: Attestation: I personally reviewed and interpreted this EKG as follows: Interpretation: No Acute Injury Pattern and Sinus Tachycardia (117) Comments: EKG was obtained. On my independent interpretation, it showed a sinus tachycardia with a rate of 117. MN interval, QRS interval, and QTc intervals were all normal. [place] was normal. There are no acute ST or T wave changes. Prior EKG tracings: available for review Prior: Unchanged (12/09/2022) Treatment and Re-Evaluation :: Patient was given aspirin here. Patient was given a dose of insulin here. Patient's heart rate improved after this. Patient was feeling better on reevaluation. Patient was advised of his findings. Patient has a HEART score of 2. Patient was advised that this is low risk for acute cardiac event. Patient was instructed to continue to monitor his blood sugars. Patient was instructed to follow-up with his primary care physician in 5 to 7 days. Patient understood and was agreeable with the plan. All questions were answered. Discharge Plan Triage Chief Complaint: Chest Pain ED Provider: Schwiger,Darren Dx/Rx/DC Orders Clinical Impression: Chest pain, Hyperglycemia Instructions: ED Chest Pain, Uncertain Cause, ED Diabetic Hyperglycemia Prescriptions: No Action ferrous sulfate [FeroSul] 325 mg (65 mg iron) tablet 325 mg PO DAILY sertraline 100 mg tablet 100 mg PO DAILY Label Comments: Take 1 tablet by mouth once daily. insulin lispro 100 UNIT/ML insulin pen 30 unit SQ TIDCM Rx Instructions: +SLIDING SCALE insulin glargine [Lantus Solostar U-100 Insulin] 100 unit/mL (3 mL) insulin pen 50 unit subcut QPM potassium chloride [Klor-Con M20] 20 mEq Tablet,Er Particles/Crystals 20 meq PO BIDCM 30 Days Qty: 60 0RF pantoprazole [Protonix] 40 mg tablet,delayed release (DR/EC) 40 mg PO DAILY Qty: 60 0RF gabapentin 300 mg capsule 300 mg PO QHS Qty: 14 0RF ondansetron 4 mg tablet,disintegrating 4 mg PO Q8H PRN PRN (Reason: Nausea) Qty: 10 0RF Primary Care Provider: Deangelo Noel Referrals: Deangelo Noel MD [Primary Care Provider] - 3-5 Days Disposition Disposition: Home, Self Care
[2023-01-03 23:11] LABS: Anion Gap 12 (5-15); BUN 15 mg/dL (7-18); BUN/Creat Ratio 17.2 RATIO (10-20); Calcium,Total 8.6 mg/dL (8.5-10.1); Chloride 97 mmol/L (98-107); Creatinine, Serum 0.87 mg/dL (0.70-1.30); EST Glomerular Filtration Rate 113 mL/min (>60); Est Glom Filt Rate - Afr Amer 136 mL/min (>60); Estimated Creatinine Clearance 122.45 ml/min; Glucose 504 mg/dL (74-106); Potassium 4.7 mmol/L (3.5-5.1); Sodium Level 132 mmol/L (136-145); Troponin-I HS 4 pg/mL (3.0-78.0)
[2023-01-03 23:17] VITALS: BP 133/94; PULSE 110; RESP 16; O2SAT 98
[2023-01-04] MEDS: Insulin Lispro 100 UNIT/ML INSULN.PEN 8 UNIT SC (00:08)
[2023-01-04 00:12] LABS: Bedside Glucose 383 mg/dL (74-106)
[2023-01-04 00:24] VITALS: BP 117/81; PULSE 87; RESP 17; O2SAT 100
--- NOTE | 2023-01-04 00:31 | ED.RN ---
Pt d/c own IV. IV visualized by this RN on floor. Pt stated, I'm up for discharge so I just took it out
[2023-01-04 00:47] LABS: Bedside Glucose 380 mg/dL (74-106)
== END 2023-01-04 00:32 | disposition home or self-care (01) ==
PROVIDERS: Emergency Provider Emergency Medicine; PCP Family Medicine; Visit Provider Emergency Medicine
DX: R07.9 Chest pain, unspecified (principal); E10.65 Type 1 diabetes mellitus with hyperglycemia; F17.210 Nicotine dependence, cigarettes, uncomplicated
CPT/HCPCS: 71045; 80048; 82962; 84484; 85025; 93005; 99285; A4216

== ENCOUNTER 2023-02-15 22:47 | Emergency (ER) | payer MEDICAID, SELFPAY ==
[2023-02-15 22:48] VITALS: BP 147/105; PULSE 128; RESP 18; TEMP 36.8; O2SAT 99; BMI 19.3
--- NOTE | 2023-02-15 23:14 | EKG12_ITS ---
Test Reason : CHEST PAIN Blood Pressure : / mmHG Vent. Rate : 129 BPM Atrial Rate : 129 BPM P-R Int : 138 ms QRS Dur : 082 ms QT Int : 312 ms P-R-T Axes : 068 069 058 degrees QTc Int : 457 ms Sinus tachycardia Right atrial enlargement Borderline ECG Confirmed by NESTOR MIRELES, ERIC ([id number]), editor index COREY MICHAEL ([id number]) on 02/17/2023 10:13:52 AM Referred By: ERIC Confirmed By:ERIC BAEZ MD
--- NOTE | 2023-02-15 23:15 | ED.VIS.CHEST ---
HPI History of Present Illness Chief Complaint: Chest Pain Informant: patient Narrative Narrative: Patient presents with chest pain. He states he always has this but sometimes it bothers him more than others. I asked him about seeing medical cost consultant. He states he was supposed to see a medical cost consultant several times. But he just does not remember what happened and that he did not actually see them. He does state that his heart rate is always high. He said normally it is about 1 20-1 50. It is about 124 while I am in the room. He is not short of breath. He is not coughing or febrile. No hemoptysis. No leg pain or swelling. He has no history of DVT or PE. I looked back over his work-up. He has had multiple D-dimers that are negative. He had 1+1 about 6 years ago. He has had 3 CTA of the chest here. He states he has been seen in other places to for this. The entire time during the history he is texting on the phone also. He actually looks quite comfortable despite his higher heart rate. He states nothing he can think of makes his symptoms better or worse. He states his last sugar was 63 checked by EMS. He does not remember when it was last checked prior to that. When I look at their form it was 69 but that is very close to what he stated. [facility] Medical History Anxiety Depression H/O fracture of skull Learning difficulty due to cognitive limitations Septic shock Type 1 diabetes mellitus Type I diabetes mellitus, uncontrolled Home Medications ferrous sulfate 325 mg (65 mg iron) tablet (FeroSul) 325 mg PO DAILY supplement 03/05/21 [History Last Taken 03/04/21] insulin lispro 100 unit/mL subcutaneous pen 30 unit SQ TIDCM short acting insulin 03/05/21 [History Last Taken 03/04/21] sertraline 100 mg tablet 100 mg PO DAILY DEPRESSION 03/05/21 [History Last Taken 03/04/21] insulin glargine 100 unit/mL (3 mL) subcutaneous pen (Lantus Solostar U-100 Insulin) 50 unit subcut QPM diabetes 08/18/22 [History Last Taken Unknown] pantoprazole 40 mg tablet,delayed release (Protonix) 40 mg PO DAILY #60 tabs 08/20/22 [Rx Last Taken Unknown] potassium chloride 20 mEq tablet,extended release(part/cryst) (Klor-Con M) 20 meq PO BIDCM 30 days #60 tabs 08/20/22 [Rx Last Taken Unknown] gabapentin 300 mg capsule 300 mg PO QHS #14 caps 08/24/22 [Rx Last Taken Unknown] ondansetron 4 mg disintegrating tablet 4 mg PO Q8H PRN PRN Nausea #10 tabs 12/09/22 [Rx Last Taken Unknown] Allergy/AdvReac Type Severity Reaction Status Date / Time No Known Allergies Allergy Verified 02/15/23 22:52 Family History Father Diabetes Surgical History H/O skin graft Social History household members: family Smoking Status: Current some day smoker tobacco type: cigarettes and smokeless tobacco Smokeless tobacco user: chewing tobacco second hand exposure: Yes alcohol intake: never substance use type: does not use ROS ROS ED ROS Narrative A complete review of systems was performed and is negative except as documented in the history of present illness. Some specific details below. Constitutional: No recent fevers or chills. EYE: No discharge, visual complaints, or pain. ENT: No difficulty swallowing. No swelling. No pain. No reflux symptoms. It sounds like he does have a history of GERD though. CV: See history of present illness. Respiratory: To me he denies any dyspnea with this. GI: No abdominal pain. No nausea vomiting diarrhea. No blood in stool. : No frequency dysuria or hematuria. Musculoskeletal: No recent trauma. No pains. No swelling. Skin: No rash. Nondiaphoretic. Neuro: No weakness or numbness. Endocrine: No polyuria or polydipsia. Does not frequently check his blood sugar. Does not have a CGM. EXAM Physical Exam Narrative Exam Narrative: CONSTITUTIONAL: Patient is nontoxic in appearance. The patient looks comfortable. Work of breathing looks normal. HEENT: No notable trauma. Mucous membranes moist. No sinus tenderness. No indication of pain with swallowing. EYES: No conjunctival injection. No proptosis. NECK:No JVD. No stridor. CARDIOVASCULAR: Tachycardic rate. Regular rhythm. No notable murmur. No JVD. RESPIRATORY: No respiratory distress. Breathing is unlabored. No wheezes. No rhonchi. No rales. No pain with a deep breath. No chest wall tenderness. No coughing while in the room GASTROINTESTINAL: Not distended. Bowel sounds are normal. No tenderness. GENITOURINARY: No tenderness over the bladder. No CVA tenderness. MUSCULOSKELETAL: Atraumatic. No peripheral edema. No cord. No tenderness along the deep venous system. No asymmetry. No distended veins. NEUROLOGICAL: Patient is alert and appropriate. No focal deficit noted. SKIN: No noted rashes. No diaphoresis. Overall poor level of cleanliness. PSYCHIATRIC: Patient is calm. Mood is appropriate. Const Vital Signs: 02/15/23 22:48 02/15/23 22:51 02/15/23 23:39 Temperature 98.3 F Temperature Source Temporal Pulse Rate 128 H Respiratory Rate 18 Respiratory Effort Normal Blood Pressure 147/105 H Blood Pressure Mean 119 Pulse Ox 99 Oxygen Delivery Method Room Air Room Air MDM MDM MDM Narrative Medical decision making narrative: Patient CBC shows minimal elevation white count which is nonspecific. Hemoglobin platelets are normal. Patient's electrolytes show no marked abnormality except his sugar is low at 54. But patient's recheck he is awake alert. He admits he really did not eat much this evening. But he is hungry we will try to get him something to eat now. Patient's troponin level is negative at less than 3. My independent interpretation of the patient's single AP chest x-ray shows no acute process. No pneumothorax. Cardiac silhouette looks normal. Final reading is chest with no acute disease. Patient is rechecked. He is awake alert. His heart rate is down to 106. He states he does not know why his heart rates always elevated. I have again told him that it is important he follows up with cardiology. We are happy to see him here but getting to the root of his tachycardia and chest pain may not be able to occur in the emergency department. He has had multiple evaluations. He has had multiple CAT scans. I do not think he needs another CAT scan. Although he is tachycardic this is chronic. He is not having pleuritic pain hemoptysis tachypnea or hypoxia. He has no known risk factor for pulmonary embolus. We will get him home at this time. I have encouraged follow-up and return with worsening symptoms or other concerns. Lab Data Attestation: I reviewed the patient's lab results. Labs: Laboratory Results - last 24 hr 02/15/23 22:40 WBC 13.1 H RBC 5.36 Hgb 13.5 Hct 42.7 MCV 79.7 L MCH 25.2 L MCHC 31.6 L RDW Std Deviation 38.5 RDW Coeff of Alec 13.5 Plt Count 423 MPV 10.9 Immature Gran % (Auto) 0.300 Neut % (Auto) 45.0 L Lymph % (Auto) 39.4 [place] % (Auto) 11.8 H Eos % (Auto) 3.0 Baso % (Auto) 0.5 Absolute Neuts (auto) 5.9 Absolute Lymphs (auto) 5.14 H Nucleated RBC % [address] Review May foll Sodium 137 Potassium 3.4 L Chloride 103 Carbon Dioxide 25.0 Anion Gap 9 BUN 18 Creatinine 0.87 Estim Creat Clear Calc 118.41 Est GFR (MDRD) Af Amer 137 Est GFR (MDRD) Non-Af 113 BUN/Creatinine Ratio 20.8 H Glucose 54 L Calcium 9.5 Troponin I High Sens < 3 L Radiography Diagnostic Testing: Clinical Impression(s) from Imaging Studies Chest X-Ray 02/15/23 23:20 IMPRESSION: Chest with no acute disease. Electronically Signed: Natalio Schmidt MD at 0:04 EDT Reading Location ID and State: [facility] / [place] Tel , Service support , EKG Initial EKG: Comments: My independent interpretation the patient's EKG done for tachycardia shows sinus rhythm with tachycardic rate at 129. No ectopy. No acute ST elevation or depression. CA interval, QRS duration and QTc are all normal Discharge Plan Triage Chief Complaint: Chest Pain Other Complaint: Nausea/Vomiting ED Provider: Jimmie Palomino Dx/Rx/DC Orders Clinical Impression: History of type 1 diabetes mellitus, Chronic tachycardia, Chest pain Instructions: ED Chest Pain, Uncertain Cause Prescriptions: No Action ferrous sulfate [FeroSul] 325 mg (65 mg iron) tablet 325 mg PO DAILY sertraline 100 mg tablet 100 mg PO DAILY Patient Comments: Take 1 tablet by mouth once daily. insulin lispro 100 UNIT/ML insulin pen 30 unit SQ TIDCM Rx Instructions: +SLIDING SCALE insulin glargine [Lantus Solostar U-100 Insulin] 100 unit/mL (3 mL) insulin pen 50 unit subcut QPM potassium chloride [Klor-Con M20] 20 mEq Tablet,Er Particles/Crystals 20 meq PO BIDCM 30 Days Qty: 60 0RF pantoprazole [Protonix] 40 mg tablet,delayed release (DR/EC) 40 mg PO DAILY Qty: 60 0RF gabapentin 300 mg capsule 300 mg PO QHS Qty: 14 0RF ondansetron 4 mg tablet,disintegrating 4 mg PO Q8H PRN PRN (Reason: Nausea) Qty: 10 0RF Primary Care Provider: Deangelo Noel Referrals: Hemal Madera MD [Med Staff - Active Staff] - As soon as possible (Call in the morning for an appointment as soon as you can get in.) Deangelo Noel MD [Primary Care Provider] - 3-5 Days Disposition Disposition: Home, Self Care
--- NOTE | 2023-02-15 23:20 | RAD_ITS ---
INDICATION: chest pain EXAMINATION/TECHNIQUE: X-RAY - XR Chest 1 View COMPARISON: 01/03/2023 chest radiograph. Findings: Single frontal view of the chest. LUNG PARENCHYMA: No acute focal airspace disease or mass lesion. PLEURA: No pleural effusion. No pneumothorax. HEART/GREAT VESSELS: Cardiomediastinal silhouette is unremarkable. BONES: Osseous structures are unremarkable for age. RAD/Chest 1 View (Portable) IMPRESSION: Chest with no acute disease. Electronically Signed: Natalio Schmidt MD at 0:04 EDT ,
[2023-02-15 23:32] LABS: Absolute Lymphocyte Count 5.14 X10^3/uL (0.83-4.51); Absolute Neutrophil Count 5.9 X10^3/uL (2.0-7.7); Basophil# 0.07 X10^3/uL; Basophil% 0.5 % (0-1); Eosinophil# 0.39 X10^3/uL; Hematocrit 42.7 % (40-54); Hemoglobin 13.5 g/dL (13.0-16.5); Lymphocyte # 5.14 X10^3/ul (0.83-4.51); Lymphocyte % 39.4 % (19-41); Mean Corp Hgb Conc 31.6 g/dL (32-36); Mean Corpuscular Hgb 25.2 pg (27.0-32.0); Mean Corpuscular Volume 79.7 fL (80-94); Mean Platelet Vol. 10.9 fl (6.2-12.0); Monocyte# 1.54 X10^3/uL; Monocyte% 11.8 % (0-10); NRBC Flagged by Analyzer 0 % (0-5); Neutrophil # 5.88 X10^3/uL (2.7-7.7); POSITIVE DIFFERENTIAL YES; Platelet Count 423 K/mm3 (150-450); RBC Distribution Width CV 13.5 % (11.6-14.6); RBC Distribution Width SD 38.5 fl (35.1-43.9); Red Blood Count 5.36 M/mm3 (4.6-6.2); White Blood Count 13.1 K/mm3 (4.4-11.0)
[2023-02-15 23:34] LABS: Differential Indicated SCAN CRITERIA MET
[2023-02-15] MEDS: 0.9% Normal Saline 1,000 ML 1000 ML IV (23:45)
[2023-02-15 23:59] LABS: Anion Gap 9 (5-15); BUN 18 mg/dL (7-18); BUN/Creat Ratio 20.8 RATIO (10-20); Calcium,Total 9.5 mg/dL (8.5-10.1); Chloride 103 mmol/L (98-107); Creatinine, Serum 0.87 mg/dL (0.70-1.30); EST Glomerular Filtration Rate 113 mL/min (>60); Est Glom Filt Rate - Afr Amer 137 mL/min (>60); Estimated Creatinine Clearance 118.41 ml/min; Glucose 54 mg/dL (74-106); Potassium 3.4 mmol/L (3.5-5.1); Sodium Level 137 mmol/L (136-145); Troponin-I HS < 3 pg/mL (3.0-78.0)
[2023-02-16 01:23] VITALS: BP 115/79; PULSE 109; RESP 20; O2SAT 98
[2023-02-17 10:18] LABS: Pathologist Review Reviewed
== END 2023-02-16 01:52 | disposition home or self-care (01) ==
PROVIDERS: Emergency Provider Emergency Medicine; PCP Family Medicine; Visit Provider Emergency Medicine
DX: R07.9 Chest pain, unspecified (principal); E10.649 Type 1 diabetes mellitus with hypoglycemia without coma; Z79.4 Long term (current) use of insulin; R00.0 Tachycardia, unspecified; F17.210 Nicotine dependence, cigarettes, uncomplicated; F17.220 Nicotine dependence, chewing tobacco, uncomplicated
CPT/HCPCS: 71045; 80048; 84484; 85025; 93005; 96360; 99285; J7030

== ENCOUNTER 2024-10-19 00:09 | Emergency (ER) | payer MEDICAID, SELFPAY ==
[2024-10-19] VITALS (9 sets, daily range): BP systolic 119–161; BP diastolic 81–115; PULSE 95–123; RESP 16–21; TEMP 36.4–36.6; O2SAT 94–99; BMI 19.5
--- NOTE | 2024-10-19 00:17 | EKG12_ITS ---
Test Reason : Blood Pressure : */* mmHG Vent. Rate : 118 BPM Atrial Rate : 118 BPM P-R Int : 150 ms QRS Dur : 80 ms QT Int : 308 ms P-R-T Axes : 72 67 61 degrees QTcB Int : 431 ms Sinus tachycardia Otherwise normal ECG Confirmed by MEGAN MIRELES, NIKKI ([id number]), metropolitan editor COREY MICHAEL ([id number]) on 10/23/2024 10:53:38 AM Referred By: Confirmed By: NIKKI GUZMAN MD
[2024-10-19 00:30] LABS: Absolute Neutrophil Count 8.5 X10^3/uL (2.0-7.7); Basophil# 0.09 X10^3/uL; Basophil% 0.7 % (0-1); Eosinophils% 1.5 % (0-5); Hematocrit 43.5 % (40-54); Hemoglobin 13.4 g/dL (13.0-16.5); Lymphocyte % 27.7 % (19-41); Mean Corp Hgb Conc 30.8 g/dL (32-36); Mean Corpuscular Hgb 23.2 pg (27.0-32.0); Mean Corpuscular Volume 75.3 fL (80-94); Mean Platelet Vol. 10.3 fl (6.2-12.0); Monocyte# 0.83 X10^3/uL; Monocyte% 6.2 % (0-10); NRBC Flagged by Analyzer 0 % (0-5); Neutrophil # 8.49 X10^3/uL (2.7-7.7); Neutrophil % 63.5 % (47-70); Platelet Count 346 K/mm3 (150-450); RBC Distribution Width CV 16.5 % (11.6-14.6); RBC Distribution Width SD 43.9 fl (35.1-43.9); Red Blood Count 5.78 M/mm3 (4.6-6.2); White Blood Count 13.4 K/mm3 (4.4-11.0)
--- NOTE | 2024-10-19 00:40 | RAD_ITS ---
PROCEDURE: CHEST PA AND LATERAL REASON FOR EXAM: CHEST PAIN TECHNIQUE: PA and lateral views of the chest. COMPARISON: 02/15/2023 FINDINGS: The lungs are clear. The cardiac and mediastinal contours are within limits. The visualized osseous structures appear within limits. RAD/Chest PA and Lateral IMPRESSION: No evidence of acute disease. Reading Location: [id number]
--- NOTE | 2024-10-19 01:05 | EDS_ITS ---
HPI History of Present Illness Chief Complaint: Chest Pain Informant: patient Narrative Narrative: Patient is 29-year-old male with history of type 1 diabetes mellitus, palpitations and anxiety presenting with chest pain. Patient states that he is getting from his of 2 years. He found that she cheated on him. They have been arguing all day and he has been trying to block her number. She has continue to try to contact him. He states he lost it and started yelling/fighting with her. He then developed left sided chest pain. He describes it as it feels like there is a bullet in his chest or his chest to get hit by a sledgehammer. Denies any radiation of the pain. Does relic his heart is racing. States he has had issues with palpitations and elevated heart rate but they never been there for got a cause. This been going on for years. He does not take any cardiac medications. He denies any swelling of his legs. Denies history of DVT PE. States he does have some pain with deep breathing since this started. Denies any other complaints at this time. No fever or chills reported. No cough reported. States his blood sugar has been in the 200s to 300s but attributes that to stress. States has been taking his insulin. No other complaints or concerns reported at this time. [facility] Medical History Learning difficulty due to cognitive limitations H/O fracture of skull Anxiety Depression Septic shock Type 1 diabetes mellitus Type I diabetes mellitus, uncontrolled Home Medications ?Medication ?Instructions ?Recorded ?Last Taken ?Type insulin lispro 100 unit/mL 25 unit SQ TIDCM short acti ng 03/05/21 03/04/21 History subcutaneous pen insulin insulin glargine 100 unit/mL (3 50 unit subcut QPM linda betes 08/18/22 Unknown History mL) subcutaneous pen (Lantus Solostar U-100 Insulin) insulin glargine 100 unit/mL 35 unit subcut QHS Unknown History subcutaneous solution (Lantus U-100 Insulin) insulin lispro 100 unit/mL 25 unit subcut TIDCM Unknown History subcutaneous solution insulin syringe-needle U-100 0.5 10/19/24 Unknown His tory mL 31 gauge x 5/16 (TRUEplus Insulin) Allergy/AdvReac Type Severity Reaction Status Date / Time No Known Allergies Allergy Verified 10/19/24 00:16 Family History Father Diabetes Surgical History H/O skin graft Social History household members: family Smoking Status: Current some day smoker tobacco type: cigarettes, e-cigarettes and smokeless tobacco Smokeless tobacco user: chewing tobacco second hand exposure: Yes alcohol intake: never substance use type: does not use ROS ROS ED Constitutional Constitutional ED: Denies chills or fever(s) ENT ENT ED: Denies sore throat Cardiovascular Cardiovascular: Reports as per HPI, chest pain and racing heartbeat Respiratory/Chest Respiratory/Chest: Reports dyspnea; Denies cough Gastrointestinal Gastrointestinal: Denies abdominal pain, diarrhea, melena, nausea or vomiting Musculoskeletal Musculoskeletal: Denies arthralgias or myalgias Integumentary Denies rash Neurologic Neurologic: Denies weakness Psychiatric Psychiatric: Reports anxiety EXAM Physical Exam Const Vital Signs: 10/19/24 00:09 10/19/24 00:50 10/19/24 01:00 Temperature 97.6 F L Temperature Source Oral Pulse Rate 123 H 117 H Respiratory Rate 18 17 Blood Pressure 161/115 H 158/110 H Blood Pressure Mean 130 123 Pulse Ox 98 97 Oxygen Delivery Method Room Air Room Air Room Air 10/19/24 01:15 10/19/24 02:00 10/19/24 02:13 Temperature Temperature Source Pulse Rate 116 H 110 H 112 H Respiratory Rate 16 16 17 Blood Pressure 144/107 H 132/85 H 147/106 H Blood Pressure Mean 118 100 119 Pulse Ox 98 98 99 Oxygen Delivery Method Room Air Room Air Room Air 10/19/24 03:00 10/19/24 04:00 10/19/24 05:00 Temperature Temperature Source Pulse Rate 108 H 105 H 112 H Respiratory Rate 18 16 21 H Blood Pressure 119/84 H 133/90 H 133/89 H Blood Pressure Mean 95 104 103 Pulse Ox 99 97 94 Oxygen Delivery Method Room Air Room Air Room Air Positive well nourished and well developed General Appearance ED: well developed and NAD HEENT Reports moist mucous membranes Eyes PERRL Neck supple and no JVD Chest Wall inspection of chest normal and palpation of chest normal Resp normal respiratory effort and clear to auscultation bilaterally Cardio regular rhythm and no murmurs Rate: tachycardic GI normal to inspection, nondistended, normoactive bowel sounds, soft to palpation and non-tender Neuro oriented x3 Sensorium / Orientation: alert Psych mental status grossly normal Mood & Affect: anxious Skin no rashes or lesions noted and no wounds Heart Score History: Slightly/Non-Suspicious ECG: Normal Age: </= 45 years Risk Factors: 1 or 2 Risk Factors Troponin: </= Normal Limit Score: 1 MDM MDM MDM Narrative Medical decision making narrative: Patient valuate for chest pain that happened after arguing with his significant other. Upon arrival patient hypertensive and tachycardic. Does have a history of type 1 diabetes mellitus. States his blood sugar has been running higher but attributes this to stress. Differential includes ACS, pneumonia, pneumothorax, pulmonary emboli, DKA, hyperglycemia, dehydration. EKG shows sinus tachycardia with no acute ischemic changes. High-sensitivity troponin normal at 8 and then 9. He has a mild leukocytosis with a white blood cell count of 13.4 but no left shift. This appears chronic for the patient. Hemoglobin normal. CMP remarkable for mildly low bicarb of 20.5, mildly elevated anion gap of 17 and glucose of 458. He also pseudohyponatremia with a sodium of 129. Potassium is normal. Patient was initially ordered 1 L of IV fluid but a second liter is also ordered. Acetone and VBG added on. These are both largely normal and not consistent with DKA. Repeat blood glucose is now 312. Patient's tachycardia has improved. He looks better. Is given additional 6 units of insulin. From a cardiac standpoint I do not suspect any acute process and can be discharged home. At this time I think patient had some dehydration and hyperglycemia but was not in DKA. Is counseled the importance of him drinking fluids and adhering to his insulin regiment. He verbalized agreement nursings plan. Will be discharged home. Given return precautions. Lab Data Attestation: I reviewed the patient's lab results. Labs: Laboratory Results - last 24 hr 10/19/24 10/19/24 10/19/24 00:24 02:23 03:21 WBC 13.4 H RBC 5.78 Hgb 13.4 Hct 43.5 MCV 75.3 L MCH 23.2 L MCHC 30.8 L RDW Std Deviation 43.9 RDW Coeff of Alec 16.5 H Plt Count 346 MPV 10.3 Immature Gran % (Auto) 0.400 Neut % (Auto) 63.5 Lymph % (Auto) 27.7 [place] % (Auto) 6.2 Eos % (Auto) 1.5 Baso % (Auto) 0.7 Absolute Neuts (auto) 8.5 H Absolute Lymphs (auto) 3.70 Nucleated RBC % 0 D-Dimer Quant (PE/DVT) 0.28 Sodium 129 L Potassium 4.1 Chloride 92 L Carbon Dioxide 20.5 L Anion Gap 17 H BUN 17 Creatinine 0.63 L Estim Creat Clear Calc 163.42 Est GFR (MDRD) Non-Af 134 BUN/Creatinine Ratio 26.8 H Glucose 458 H* Calcium 8.9 Troponin T High Sens 8 Troponin T Hi Sens 2 Hr 9 b-Hydroxybutyric mmol/L 0.6 Urine Color Yellow Urine Clarity Clear Urine pH 6.0 Ur Specific [place] 1.010 Urine Protein 100 H Urine Glucose (UA) 1000 H Urine Ketones 15 H Urine Occult Blood 25 H Urine Nitrite Negative Urine Bilirubin Negative Urine Urobilinogen Normal Ur Leukocyte Esterase Negative Urine RBC 0-5 SEEN Urine WBC 0 SEEN Ur Squamous Epith Cells 0-5 SEEN Urine Bacteria 1+ Urine Mucus 0 SEEN POC Glucose 312 H ABG Data ABG results: ABG 10/19/24 02:47 Specimen Type JAIDEN Sample Site Not entered VBG pH 7.36 VBG pO2 32 VBG HCO3 23 VBG Total CO2 25 VBG O2 Sat (Calc) 59 VBG Base Excess -2 L POC Mix VBG pCO2 Pt Tmp 41.4 O2 Delivery Device Room Air Radiography Chest X-Ray - ED: 2 View, Read by ED Physician, Read by Radiologist and No Acute Disease Diagnostic Testing: Clinical Impression(s) from Imaging Studies Chest X-Ray 10/19/24 00:40 IMPRESSION: No evidence of acute disease. Reading Location: [facility] Rhythm Strip Rhythm Strip: Sinus Tach Rate: 118 Ectopy: None EKG Initial EKG: Attestation: I personally reviewed and interpreted this EKG as follows: Interpretation: Sinus Tachycardia Comments: Sinus tachycardia rate of 118 bpm Normal axis Normal intervals Normal ST segments Discharge Plan Triage Chief Complaint: Chest Pain ED Provider: Keisha Handy Dx/Rx/DC Orders Clinical Impression: Diabetes mellitus, Hyperglycemia, Tachycardia, Chest pain Instructions: ED Chest Pain, Uncertain Cause, ED Diabetic Hyperglycemia Prescriptions: No Action insulin lispro 100 UNIT/ML insulin pen 25 unit SQ TIDCM Rx Instructions: +SLIDING SCALE insulin glargine [Lantus Solostar U-100 Insulin] 100 unit/mL (3 mL) insulin pen 50 unit subcut QPM insulin glargine [Lantus U-100 Insulin] 100 unit/mL solution 35 unit subcut QHS insulin lispro 100 unit/mL solution 25 unit subcut TIDCM Patient Comments: inject 25 three times a day (DME) insulin syringe-needle U-100 [TRUEplus Insulin] 0.5 mL 31 gauge x 5/16 syringe 1 syringe MISCELLANEOUS 4X/DAY Primary Care Provider: Care Physician,No Primary Referrals: Deangelo Noel MD [Non-Staff] - Activity Restrictions/Additional Instructions: Your initial lab work was concerning for elevated blood sugar. You were not in DKA but likely were heading into it. You are given IV fluids and insulin in the emergency room. Please make sure you are drinking plenty of water and managing your blood sugar at home. If you feel you have worsening symptoms please return to emergency room. Your cardiac workup was largely normal with no findings urgent care physician assistant with heart attack or other acute cardiac/heart process Print Language: Icelandic Disposition Disposition: Home, Self Care
[2024-10-19] MEDS: 0.9% Normal Saline (1000mL) 1,000 ML 999 ML IV ×2 (01:18→02:28)
[2024-10-19 01:33] LABS: D-Dimer Quantitative (DVT/PE) 0.28 FEU/ug/m (0.27-0.49)
[2024-10-19 02:01] LABS: Troponin T High Sensitivity 8 ng/L (<=22)
[2024-10-19 02:09] LABS: Anion Gap 17 (5-15); BUN 17 mg/dL (4-19); BUN/Creat Ratio 26.8 RATIO (10-20); Calcium,Total 8.9 mg/dL (7.6-11.0); Carbon Dioxide 20.5 mmol/L (21.0-32.0); Chloride 92 mmol/L (98-108); Creatinine, Serum 0.63 mg/dL (0.70-1.20); EST Glomerular Filtration Rate 134 (>60); Estimated Creatinine Clearance 163.42 ml/min (50-250); Glucose 458 mg/dL (70-99); Potassium 4.1 mmol/L (3.3-5.1); Sodium Level 129 mmol/L (133-145)
[2024-10-19 02:40] LABS: Mucous, Urine 0 SEEN /hpf (<or=2+); White Blood Cells 0 SEEN /hpf (0-5)
[2024-10-19 02:41] LABS: Glucose, Dipstick 1000 mg/dl (Normal); Ketone-Dipstick 15 mg/dl (Negative); Leukocyte Esterase-Dipstick Negative /ul (Negative); Nitrite-Dipstick Negative (Negative); Occult Blood-Urine 25 /ul (Negative); Protein-Dipstick 100 mg/dl (Negative); Urine Bilirubin Dipstick Negative (Negative); Urine Urobilinogen Normal (Normal)
[2024-10-19 02:48] LABS: Color, Urine Yellow (Yellow); Urine Clarity Clear (Clear)
[2024-10-19 02:50] LABS: Blood Gas Specimen Type VEN; O2 Delivery Device Room Air; SITE Not entered; VBG BASE EXCESS -2 mmol/L (-1.0-3.5); VBG Bicarbonate 23 mmol/L (22-26); VBG PO2 32 mmHg (25-40); VBG SO2 59 % (50-70); VBG TCO2 25 mmol/L (23-33); VBG pCO2 41.4 mmHg (41-51); VBG pH 7.36 (7.32-7.42)
[2024-10-19 02:51] LABS: Bacteria 1+ /hpf (None Seen); Red Blood Cells-Urine 0-5 SEEN /hpf (0-5); Squamous Epithelial Cells - UA 0-5 SEEN /hpf (0-5)
[2024-10-19 03:10] LABS: Troponin T High Sens 2 HR 9 ng/L (<=22)
[2024-10-19 03:40] LABS: Bedside Glucose 312 mg/dL (74-106)
[2024-10-19 04:04] LABS: BETA-HYDROXYBUTYRATE 0.6 mmol/L (0.0-0.3)
[2024-10-19] MEDS: Insulin Lispro 100 UNIT/ML INSULN.PEN 6 UNIT SC (04:52)
== END 2024-10-19 05:20 | disposition home or self-care (01) ==
PROVIDERS: Emergency Provider Emergency Medicine; Visit Provider Emergency Medicine
DX: E10.65 Type 1 diabetes mellitus with hyperglycemia (principal); Z79.4 Long term (current) use of insulin; R07.9 Chest pain, unspecified; F17.210 Nicotine dependence, cigarettes, uncomplicated; F17.290 Nicotine dependence, other tobacco product, uncomplicated; F17.220 Nicotine dependence, chewing tobacco, uncomplicated
CPT/HCPCS: 71046; 80048; 81001; 82010; 82803; 82962; 84484; 85025; 85379; 93005; 96360; 96361; 99285; A4216

== ENCOUNTER 2024-11-11 17:45 | Emergency (ER) | payer MEDICAID, SELFPAY ==
[2024-11-11 17:46] VITALS: BP 116/79; PULSE 118; RESP 14; TEMP 36.6; O2SAT 98; BMI 18.7
--- NOTE | 2024-11-11 18:17 | EX.ED.DYSGE1 ---
HPI <ZAIN Lyons - Last Filed: 11/11/24 19:52> History of Present Illness Chief Complaint: Nausea/Vomiting Narrative Narrative: Patient presenting today with nausea and vomiting that started this afternoon at work. He reports that he threw up about 3 times. He reports minimal left upper quadrant abdominal pain. He has a history of T1DM, he reports that he is compliant with his medication, he has been in DKA in the past and this does not feel similar. He denies substance use including marijuana use. His last bowel movement was this morning and was normal. He denies fevers, chills, hematemesis, diarrhea, and urinary symptoms. PFSH <ZAIN Lyons - Last Filed: 11/11/24 19:52> [facility] Medical History Learning difficulty due to cognitive limitations H/O fracture of skull Anxiety Depression Septic shock Type 1 diabetes mellitus Type I diabetes mellitus, uncontrolled Home Medications ?Medication ?Instructions ?Recorded ?Last Taken ?Type insulin lispro 100 unit/mL 25 unit SQ TIDCM short acting 03/05/21 03/04/21 History subcutaneous pen insulin insulin glargine 100 unit/mL (3 50 unit subcut QPM diabetes 08/18/22 Unknown History mL) subcutaneous pen (Lantus Solostar U-100 Insulin) insulin glargine 100 unit/mL 35 unit subcut QHS 10/19/24 Unknown History subcutaneous solution (Lantus U-100 Insulin) insulin lispro 100 unit/mL 25 unit subcut TIDCM 10/19/24 Unknown History subcutaneous solution insulin syringe-needle U-100 0.5 10/19/24 Unknown History mL 31 gauge x /16 (TRUEplus Insulin) ondansetron 4 mg disintegrating 4 mg PO Q8H PRN PRN Nausea #10 tabs 11/11/24 Unknown Rx tablet Allergy/AdvReac Type Severity Reaction Status Date / Time No Known Allergies Allergy Verified 11/11/24 17:48 Family History Father Diabetes Surgical History H/O skin graft Social History household members: family Smoking Status: Current some day smoker tobacco type: cigarettes, e-cigarettes and smokeless tobacco Smokeless tobacco user: chewing tobacco second hand exposure: Yes alcohol intake: never substance use type: does not use ROS <ZAIN Lyons - Last Filed: 11/11/24 19:52> ROS ED Constitutional Constitutional ED: Denies chills or fever(s) Cardiovascular Cardiovascular: Denies chest pain Respiratory/Chest Respiratory/Chest: Denies dyspnea Gastrointestinal Gastrointestinal: Reports abdominal pain, nausea and vomiting; Denies constipation or diarrhea Genitourinary Genitourinary ED: Denies dysuria, hematuria or urinary urgency Musculoskeletal Musculoskeletal: Denies arthralgias or myalgias Integumentary Denies rash Neurologic Neurologic: Denies weakness EXAM <ZAIN Lyons - Last Filed: 11/11/24 19:52> Physical Exam Const Vital Signs: 11/11/24 17:46 11/11/24 19:18 Temperature 97.8 F 97.8 F Temperature Source Temporal Pulse Rate 118 H 102 H Respiratory Rate 14 18 Blood Pressure 116/79 128/86 H Blood Pressure Mean 91 100 Pulse Ox 98 98 Positive well nourished, well developed and no apparent distress General Appearance ED: well developed HEENT Reports normocephalic and head/scalp atraumatic Mouth ED: Yes moist mucous membranes normal Eyes PERRL and EOMs intact bilaterally Neck full ROM and supple Chest Wall inspection of chest normal Resp normal respiratory effort and clear to auscultation bilaterally Cardio regular rate and regular rhythm GI soft to palpation, non-tender, non-distended and no masses GI Narrative: Patient has a scar to his left upper quadrant with residual scar tissue Back/Spine normal ROM and normal to inspection Extremity normal to inspection and full ROM Neuro oriented x3, CN's II-XII intact bilaterally, moves all extremities, no focal motor deficits and no sensory deficits noted Sensorium / Orientation: awake and alert Psych mental status grossly normal and thought process normal Skin no rashes or lesions noted and no wounds <Dr. Steven Donaldson DO - Last Filed: 11/11/24 20:05> Physical Exam Const Vital Signs: 11/11/24 17:46 11/11/24 19:18 Temperature 97.8 F 97.8 F Temperature Source Temporal Pulse Rate 118 H 102 H Respiratory Rate 14 18 Blood Pressure 116/79 128/86 H Blood Pressure Mean 91 100 Pulse Ox 98 98 [facility] <ZAIN Lyons - Last Filed: 11/11/24 19:52> [facility] Narrative Medical decision making narrative: Patient presenting with nausea and vomiting that started this afternoon at work. He had about 4 episodes. He also endorses mild left upper quadrant abdominal pain that started at work. His symptoms are improving. His abdomen is soft and nontender, given he has a nonsurgical abdomen, we will hold on imaging at this time. Labs obtained, he does have a leukocytosis at 16.6, suspect that this could be reactive. Anion gap is WNL, no electrolyte derangement aside from a slightly low potassium at 3.2, no FRANKLIN, he was given potassium replacement. Given his history of DKA and the fact that he is a type I diabetic, VBG and serum acetone obtained to assess for DKA. His acetone level is WNL, his pH is 7.44. Patient does not appear to be in DKA. On reexamination he is doing well, repeat abdominal exam is soft and nontender. He is tolerating p.o. fluids. He reports improvement of his symptoms. He will be given a prescription for Zofran and will be discharged home in stable condition. Recommended he follow closely with his PCP. Lab Data Attestation: I reviewed the patient's lab results. Labs: Laboratory Results - last 24 hr 11/11/24 18:25 WBC 16.6 H RBC 5.29 Hgb 12.5 L Hct 39.7 L MCV 75.0 L MCH 23.6 L MCHC 31.5 L RDW Std Deviation 42.0 RDW Coeff of Alec 15.8 H Plt Count 314 MPV 10.6 Immature Gran % (Auto) 0.400 Neut % (Auto) 71.2 H Lymph % (Auto) 17.9 L [place] % (Auto) 9.5 Eos % (Auto) 0.8 Baso % (Auto) 0.2 Absolute Neuts (auto) 11.8 H Absolute Lymphs (auto) 2.97 Nucleated RBC % 0 Differential Comment SCANNED Diff Path Review May foll Platelet Estimate ADEQUATE Plt Morphology Comment LARGE RBC Morphology NORM C+C Sodium 138 Potassium 3.2 L Chloride 102 Carbon Dioxide 24.8 Anion Gap 11 BUN 14 Creatinine 0.85 Estim Creat Clear Calc 115.58 Est GFR (MDRD) Non-Af 122 BUN/Creatinine Ratio 16.4 Glucose 113 H Calcium 8.3 Total Bilirubin < 0.15 AST 18 ALT 20 Alkaline Phosphatase 123 Total Protein 6.1 Albumin 3.6 Globulin 2.6 Albumin/Globulin Ratio 1.4 Lipase 17 b-Hydroxybutyric mmol/L 0.6 ABG Data ABG results: ABG 11/11/24 18:33 Specimen Type JAIDEN Sample Site Not entered VBG pH 7.44 H VBG pO2 40 VBG HCO3 27 H VBG Total CO2 28 VBG O2 Sat (Calc) 76 H VBG Base Excess 2 POC Mix VBG pCO2 Pt Tmp 39.6 L O2 Delivery Device Room Air <Dr. Steven Donaldson, DO - Last Filed: 11/11/24 20:05> MDM MDM Narrative Medical decision making narrative: Patient presenting with nausea and vomiting that started this afternoon at work. He had about 4 episodes. He also endorses mild left upper quadrant abdominal pain that started at work. His symptoms are improving. His abdomen is soft and nontender, given he has a nonsurgical abdomen, we will hold on imaging at this time. Labs obtained, he does have a leukocytosis at 16.6, suspect that this could be reactive. Anion gap is WNL, no electrolyte derangement aside from a slightly low potassium at 3.2, no FRANKLIN, he was given potassium replacement. Given his history of DKA and the fact that he is a type I diabetic, VBG and serum acetone obtained to assess for DKA. His acetone level is WNL, his pH is 7.44. Patient does not appear to be in DKA. On reexamination he is doing well, repeat abdominal exam is soft and nontender. He is tolerating p.o. fluids. He reports improvement of his symptoms. He will be given a prescription for Zofran and will be discharged home in stable condition. Recommended he follow closely with his PCP. Supervisory Physician Note Patient was seen and examined with the Advanced Practice Provider. Nursing notes and vital signs have been reviewed. Pertinent old records have been reviewed. I agree with the essential elements of the VENTURA's history, physical exam, assessment, and plan. The differential diagnosis and management options were discussed with the VENTURA. I participated in determining and agree with the management, procedures, final impression and disposition as documented. See changes noted by me. Please see addendum or separate note for any additional details. Gen: A&O x3, NAD Head: Normocephalic, atraumatic Eyes: No sclera icterus, conjunctiva clear ENT: Moist mucous membranes Neck: Trachea midline, No JVD CV: RRR, no murmurs, no peripheral edema Resp: Lungs CTA BL, no w/r/c GI: Abd soft, non-distended, non-tender, no r/r/g Musc: Full ROM, no deformity Skin: Warm, dry Neuro: Alert, oriented, grossly intact, sensation intact Psych: Cooperative, appropriate mood and affect Patient presents for nausea and vomiting. Onset today. Has history of diabetes. Patient endorses a mild left upper quadrant pain however he was not tender on physical exam. No imaging needed. CBC with leukocytosis of 16.6. Patient has anemia with hemoglobin 12.5. On chart review is a history of anemia in the past. CMP unremarkable except for mild hyperglycemia as well as hypokalemia. P.o. potassium ordered. No anion gap. VBG without acidosis. Beta hydroxybutyrate mildly elevated but likely secondary to nausea and vomiting. Lipase negative. Patient received fluid, Zofran, Toradol. On reexamination, symptoms improved. Was able to tolerate p.o. intake. Patient discharged home with Zofran prescription. Follow-up with PCP. Impression: 1. Nausea and vomiting 2. History of diabetes 3. Mild hypokalemia Lab Data Labs: Laboratory Results - last 24 hr 11/11/24 18:25 WBC 16.6 H RBC 5.29 Hgb 12.5 L Hct 39.7 L MCV 75.0 L MCH 23.6 L MCHC 31.5 L RDW Std Deviation 42.0 RDW Coeff of Alec 15.8 H Plt Count 314 MPV 10.6 Immature Gran % (Auto) 0.400 Neut % (Auto) 71.2 H Lymph % (Auto) 17.9 L [place] % (Auto) 9.5 Eos % (Auto) 0.8 Baso % (Auto) 0.2 Absolute Neuts (auto) 11.8 H Absolute Lymphs (auto) 2.97 Nucleated RBC % 0 Differential Comment SCANNED Diff Path Review May foll Platelet Estimate ADEQUATE Plt Morphology Comment LARGE RBC Morphology NORM C+C Sodium 138 Potassium 3.2 L Chloride 102 Carbon Dioxide 24.8 Anion Gap 11 BUN 14 Creatinine 0.85 Estim Creat Clear Calc 115.58 Est GFR (MDRD) Non-Af 122 BUN/Creatinine Ratio 16.4 Glucose 113 H Calcium 8.3 Total Bilirubin < 0.15 AST 18 ALT 20 Alkaline Phosphatase 123 Total Protein 6.1 Albumin 3.6 Globulin 2.6 Albumin/Globulin Ratio 1.4 Lipase 17 b-Hydroxybutyric mmol/L 0.6 ABG Data ABG results: ABG 11/11/24 18:33 Specimen Type JAIDEN Sample Site Not entered VBG pH 7.44 H VBG pO2 40 VBG HCO3 27 H VBG Total CO2 28 VBG O2 Sat (Calc) 76 H VBG Base Excess 2 POC Mix VBG pCO2 Pt Tmp 39.6 L O2 Delivery Device Room Air Discharge Plan Triage Chief Complaint: Nausea/Vomiting ED Midlevel Provider: Lourdes Metz ED Provider: Steven Donaldson Dx/Rx/DC Orders Clinical Impression: Nausea & vomiting, Diabetes mellitus Instructions: ED Vomiting (Adult) Prescriptions: New ondansetron 4 mg tablet,disintegrating 4 mg PO Q8H PRN PRN (Reason: Nausea) Qty: 10 0RF No Action insulin lispro 100 UNIT/ML insulin pen 25 unit SQ TIDCM Rx Instructions: +SLIDING SCALE insulin glargine [Lantus Solostar U-100 Insulin] 100 unit/mL (3 mL) insulin pen 50 unit subcut QPM insulin glargine [Lantus U-100 Insulin] 100 unit/mL solution 35 unit subcut QHS insulin lispro 100 unit/mL solution 25 unit subcut TIDCM Patient Comments: inject 25 three times a day (DME) insulin syringe-needle U-100 [TRUEplus Insulin] 0.5 mL 31 gauge x 5/16 syringe 1 syringe MISCELLANEOUS 4X/DAY Stand Alone Forms: ED Work / School Excuse Primary Care Provider: Care Physician,No Primary Referrals: Care Physician,No Primary [Primary Care Provider] - Activity Restrictions/Additional Instructions: Follow-up with your PCP and return for any worsening symptoms. Print Language: Greek Disposition Disposition: Home, Self Care Discharge Date/Time: 11/11/24 19:28
[2024-11-11] MEDS: 0.9% Normal Saline (1000mL) 1,000 ML 999 ML IV (18:21)
[2024-11-11] MEDS: Ondansetron 4 MG/2 ML Vial IV (18:22)
[2024-11-11] MEDS: Ketorolac 15 MG/ML Vial IV (18:22)
[2024-11-11 18:31] LABS: Absolute Lymphocyte Count 2.97 X10^3/uL (0.83-4.51); Absolute Neutrophil Count 11.8 X10^3/uL (2.0-7.7); Basophil# 0.04 X10^3/uL; Basophil% 0.2 % (0-1); Eosinophil# 0.14 X10^3/uL; Eosinophils% 0.8 % (0-5); Hematocrit 39.7 % (40-54); Hemoglobin 12.5 g/dL (13.0-16.5); Lymphocyte # 2.97 X10^3/ul (0.83-4.51); Lymphocyte % 17.9 % (19-41); Mean Corp Hgb Conc 31.5 g/dL (32-36); Mean Corpuscular Hgb 23.6 pg (27.0-32.0); Mean Platelet Vol. 10.6 fl (6.2-12.0); Monocyte# 1.58 X10^3/uL; Monocyte% 9.5 % (0-10); NRBC Flagged by Analyzer 0 % (0-5); Neutrophil # 11.83 X10^3/uL (2.7-7.7); Neutrophil % 71.2 % (47-70); POSITIVE DIFFERENTIAL YES; Platelet Count 314 K/mm3 (150-450); RBC Distribution Width CV 15.8 % (11.6-14.6); Red Blood Count 5.29 M/mm3 (4.6-6.2); White Blood Count 16.6 K/mm3 (4.4-11.0)
[2024-11-11 18:37] LABS: Blood Gas Specimen Type VEN; O2 Delivery Device Room Air; SITE Not entered; VBG BASE EXCESS 2 mmol/L (-1.0-3.5); VBG Bicarbonate 27 mmol/L (22-26); VBG PO2 40 mmHg (25-40); VBG SO2 76 % (50-70); VBG TCO2 28 mmol/L (23-33); VBG pCO2 39.6 mmHg (41-51); VBG pH 7.44 (7.32-7.42)
[2024-11-11 18:45] LABS: Differential Indicated SCAN CRITERIA MET
[2024-11-11 18:48] LABS: Differential Comment SCANNED
[2024-11-11 18:49] LABS: BETA-HYDROXYBUTYRATE 0.6 mmol/L (0.0-0.3); Lipase 17 U/L (13-75); Platelet Estimate ADEQUATE (ADEQ); Platelet Morphology LARGE; Red Cell Morphology NORM C+C NORMAL (NORM C&C)
[2024-11-11 18:50] LABS: Pathologist Review May foll
[2024-11-11 18:52] LABS: ALB/GLOB Ratio 1.4 RATIO (0.9-2.4); AST(SGOT) 18 U/L (<=37); Alanine Aminotransfer ALT/SGPT 20 U/L (<=46); Albumin, Serum 3.6 g/dL (3.5-5.0); Alkaline Phosphatase 123 U/L (40-129); Anion Gap 11 (5-15); BUN 14 mg/dL (4-19); BUN/Creat Ratio 16.4 RATIO (10-20); Calcium,Total 8.3 mg/dL (7.6-11.0); Carbon Dioxide 24.8 mmol/L (21.0-32.0); Chloride 102 mmol/L (98-108); Creatinine, Serum 0.85 mg/dL (0.70-1.20); EST Glomerular Filtration Rate 122 (>60); Estimated Creatinine Clearance 115.58 ml/min (50-250); Globulin 2.6 g/dL (2.2-4.2); Glucose 113 mg/dL (70-99); Potassium 3.2 mmol/L (3.3-5.1); Protein, Total 6.1 g/dL (5.9-8.4); Sodium Level 138 mmol/L (133-145); Total Bilirubin < 0.15 mg/dL (0.00-1.30)
[2024-11-11] MEDS: Potassium Chloride Oral Soln 20 MEQ/15 ML UDC 40 MEQ PO (19:17)
[2024-11-11 19:18] VITALS: BP 128/86; PULSE 102; RESP 18; TEMP 36.6; O2SAT 98
== END 2024-11-11 19:28 | disposition home or self-care (01) ==
PROVIDERS: Physician Assistant; Emergency Provider Surgery; Referring Provider Surgery; Visit Provider Surgery
DX: R11.2 Nausea with vomiting, unspecified (principal); E10.9 Type 1 diabetes mellitus without complications; E87.6 Hypokalemia
CPT/HCPCS: 80053; 82010; 82803; 83690; 85025; 96361; 96374; 96375; 96376; 99283; A4216; J2405

== ENCOUNTER 2024-12-12 12:35 | Emergency (ER) | payer MEDICAID, SELFPAY ==
[2024-12-12 12:36] VITALS: BP 126/82; PULSE 116; RESP 18; TEMP 36.1; O2SAT 100; BMI 18.6
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
--- NOTE | 2024-12-12 13:10 | RAD_ITS ---
PROCEDURE: SHOULDER MIN 2 VIEWS, 12/12/2024 REASON FOR EXAM: INJURY/PAIN TECHNIQUE: AP, Grashey, scapular Y, and axillary views of the LEFT shoulder were obtained. COMPARISON: None FINDINGS: Fracture/dislocation: None visible. Joint space(s): Preserved. Soft tissues: Unremarkable. Foreign bodies: None visible. Bone mineralization: Unremarkable. Other: None. RAD/Shoulder min 2 Views IMPRESSION: No visible acute abnormality. Reading Location: [id number]
[2024-12-12] MEDS: Naproxen 500 MG Tablet PO (13:41)
== END 2024-12-12 13:46 | disposition home or self-care (01) ==
PROVIDERS: Emergency Provider Emergency Medicine; Visit Provider Emergency Medicine
DX: M75.42 Impingement syndrome of left shoulder (principal); E10.9 Type 1 diabetes mellitus without complications; R00.0 Tachycardia, unspecified; F17.210 Nicotine dependence, cigarettes, uncomplicated; F17.220 Nicotine dependence, chewing tobacco, uncomplicated; F17.290 Nicotine dependence, other tobacco product, uncomplicated
CPT/HCPCS: 73030; 99282

== ENCOUNTER 2024-12-13 21:10 | Emergency (ER) | payer MEDICAID, SELFPAY ==
[2024-12-13 21:12] VITALS: BP 106/78; PULSE 110; RESP 18; TEMP 36.9; O2SAT 99; BMI 14.6
[2024-12-13 22:05] LABS: Bedside Glucose 490 mg/dL (74-106)
--- NOTE | 2024-12-13 22:05 | EX.ED.DYSGE1 ---
HPI History of Present Illness Chief Complaint: Nausea/Vomiting Informant: patient Narrative Narrative: 29-year-old male seen here yesterday for shoulder pain and prescribed Naprosyn he states soon after taking the first pill last night he started vomiting. Today he has been vomiting all day, and subsequently started feeling orthostatic when he stood up, feeling lightheaded. No syncopal episodes. No hematemesis. No fevers, chills, abdominal pain, diarrhea. He denies feeling short of breath. He is a type I diabetic, he does not use a pump but injects his own. States he did give himself some insulin around 8 hours ago when his blood sugar was somewhere in the 200s he has not checked it since. Does not feel polyuria/polydipsia since then. States he cannot keep anything down all day. PFSH PFS Medical History Learning difficulty due to cognitive limitations H/O fracture of skull Anxiety Depression Septic shock Type 1 diabetes mellitus Type I diabetes mellitus, uncontrolled Home Medications ?Medication ?Instructions ?Recorded ?Last Taken ?Type insulin lispro 100 unit/mL 25 unit SQ TIDCM short acting 03/05/21 03/04/21 History subcutaneous pen insulin insulin glargine 100 unit/mL (3 50 unit subcut QPM diabetes 08/18/22 Unknown History mL) subcutaneous pen (Lantus Solostar U-100 Insulin) insulin glargine 100 unit/mL 35 unit subcut QHS 10/19/24 Unknown History subcutaneous solution (Lantus U-100 Insulin) insulin lispro 100 unit/mL 25 unit subcut TIDCM 10/19/24 Unknown History subcutaneous solution insulin syringe-needle U-100 0.5 10/19/24 Unknown History mL 31 gauge x 5/16 (TRUEplus Insulin) ondansetron 8 mg disintegrating 8 mg PO Q8H PRN nausea and 12/14/24 Unknown Rx tablet vomiting #12 tabs Allergy/AdvReac Type Severity Reaction Status Date / Time No Known Allergies Allergy Verified 12/13/24 21:14 Family History Father Diabetes Surgical History H/O skin graft Social History household members: family Smoking Status: Current some day smoker tobacco type: cigarettes, e-cigarettes and smokeless tobacco Smokeless tobacco user: chewing tobacco second hand exposure: Yes alcohol intake: never substance use type: does not use ROS ROS ED Constitutional Constitutional ED: Denies chills or fever(s) Eyes Eyes: Denies change in vision or diplopia ENT ENT ED: Denies rhinorrhea or sore throat Cardiovascular Cardiovascular: Reports lightheadedness and orthostatic symptoms; Denies chest pain, palpitations or syncope Respiratory/Chest Respiratory/Chest: Denies cough or dyspnea Gastrointestinal Gastrointestinal: Reports nausea and vomiting; Denies abdominal pain or diarrhea Genitourinary Genitourinary ED: Denies dysuria or hematuria Musculoskeletal Musculoskeletal: Reports other Details: left shoulder pain x months, I just decided to get it checked out yesterday. ; Denies back pain or neck pain Integumentary Denies abscess or rash Neurologic Neurologic: Denies headache(s), paresthesias or weakness Psychiatric Psychiatric: Denies anxiety or suicidal thoughts Endocrine Endocrinology: Denies polydipsia or polyuria EXAM Physical Exam Const Vital Signs: 12/13/24 21:12 12/13/24 23:12 12/14/24 01:00 Temperature 98.4 F Temperature Source Temporal Pulse Rate 110 H 95 100 Respiratory Rate 18 16 16 Blood Pressure 106/78 106/74 96/63 Blood Pressure Mean 87 84 74 Pulse Ox 99 99 97 Oxygen Delivery Method Room Air Room Air Room Air Positive well nourished and well developed Constitutional Narrative: well-appearing General Appearance ED: well developed and NAD HEENT Reports moist mucous membranes normocephalic and atraumatic Eyes PERRL and EOMs intact bilaterally Neck full ROM and supple Resp normal respiratory effort and clear to auscultation bilaterally Cardio regular rate, regular rhythm and no murmurs Rate: tachycardic GI non-tender and non-distended Auscultation: normoactive bowel sounds Palpation: soft Back/Spine no CVA tenderness General Back: other FROM Extremity normal to inspection General Extremety ED: Negative for edema, pulses abnormal or tenderness General Extremity: Negative for edema or pulses abnormal Neuro oriented x3, CN's II-XII intact bilaterally and no sensory deficits noted Sensorium / Orientation: awake and alert Motor Exam: strength 5/5 throughout Skin no rashes or lesions noted and no wounds MDM MDM MDM Narrative Medical decision making narrative: Initial check, his blood sugar is 490, and his EKG shows some peaked T waves concerning for hyperkalemia which is confirmed when his chemistries come back with potassium 5.3. His beta-hydroxybutyric acid is 1.7, and this is all concerning for DKA although his anion gap is not elevated and his bicarb is 27. His venous blood gas came back with a pH of 7.5, arguing against DKA, but his sugar had gone up to 520 on the chemistry just in the amount of time between drawling that and doing the BGT at 490. With IV fluids and Zofran he felt much better, he was able to drink fluids and eat without difficulty, I did put him on an insulin drip and continue checking his blood sugars every hour, because I was not able to rule out the possibility of this being an early DKA under the circumstances. With time his blood sugar came down to the 200s, his vital signs normalized he felt much better, and repeat chemistry panel, everything has normalized. He is eating. He thinks the Naprosyn did this because it started afterwards. I doubt that it did but I think reasonable for him to avoid it for right now if he does not require it. Prescribe Zofran to use as needed stable for discharge. Lab Data Attestation: I reviewed the patient's lab results. Labs: Laboratory Results - last 24 hr 12/13/24 12/13/24 12/13/24 21:20 21:47 22:30 WBC 11.3 H RBC 5.93 Hgb 13.9 Hct 43.1 MCV 72.7 L MCH 23.4 L MCHC 32.3 RDW Std Deviation 38.6 RDW Coeff of Alec 15.2 H Plt Count 449 MPV 10.5 Immature Gran % (Auto) 0.300 Neut % (Auto) 53.8 Lymph % (Auto) 33.9 Rogers % (Auto) 8.1 Eos % (Auto) 3.3 Baso % (Auto) 0.6 Absolute Neuts (auto) 6.1 Absolute Lymphs (auto) 3.83 Nucleated RBC % 0 Sodium 129 L Potassium 5.3 H Chloride 90 L Carbon Dioxide 27.2 Anion Gap 12 BUN 14 Creatinine 0.84 Estim Creat Clear Calc 96.24 Est GFR (MDRD) Non-Af 123 BUN/Creatinine Ratio 16.3 Glucose 520 H* Calcium 9.0 b-Hydroxybutyric mmol/L 1.7 Urine Color Straw Urine Clarity Clear Urine pH 7.0 Ur Specific [place] 1.005 Urine Protein 30 H Urine Glucose (UA) 1000 H Urine Ketones 5 H Urine Occult Blood 25 H Urine Nitrite Negative Urine Bilirubin Negative Urine Urobilinogen Normal Ur Leukocyte Esterase Negative Urine RBC 0 SEEN Urine WBC 0 SEEN Ur Squamous Epith Cells 0 SEEN Urine Bacteria 0 SEEN Urine Mucus 0 SEEN POC Glucose 490 H* 12/13/24 12/14/24 12/14/24 23:15 00:06 00:50 WBC RBC Hgb Hct MCV MCH MCHC RDW Std Deviation RDW Coeff of Alec Plt Count MPV Immature Gran % (Auto) Neut % (Auto) Lymph % (Auto) Rogers % (Auto) Eos % (Auto) Baso % (Auto) Absolute Neuts (auto) Absolute Lymphs (auto) Nucleated RBC % Sodium 136 Potassium 3.6 Chloride 103 Carbon Dioxide 24.0 Anion Gap 9 BUN 10 Creatinine 0.64 L Estim Creat Clear Calc 126.32 Est GFR (MDRD) Non-Af 133 BUN/Creatinine Ratio 16.2 Glucose 275 H Calcium 7.8 b-Hydroxybutyric mmol/L Urine Color Urine Clarity Urine pH Ur Specific [place] Urine Protein Urine Glucose (UA) Urine Ketones Urine Occult Blood Urine Nitrite Urine Bilirubin Urine Urobilinogen Ur Leukocyte Esterase Urine RBC Urine WBC Ur Squamous Epith Cells Urine Bacteria Urine Mucus POC Glucose 433 H 337 H 12/14/24 01:02 WBC RBC Hgb Hct MCV MCH MCHC RDW Std Deviation RDW Coeff of Alec Plt Count MPV Immature Gran % (Auto) Neut % (Auto) Lymph % (Auto) Rogers % (Auto) Eos % (Auto) Baso % (Auto) Absolute Neuts (auto) Absolute Lymphs (auto) Nucleated RBC % Sodium Potassium Chloride Carbon Dioxide Anion Gap BUN Creatinine Estim Creat Clear Calc Est GFR (MDRD) Non-Af BUN/Creatinine Ratio Glucose Calcium b-Hydroxybutyric mmol/L Urine Color Urine Clarity Urine pH Ur Specific [place] Urine Protein Urine Glucose (UA) Urine Ketones Urine Occult Blood Urine Nitrite Urine Bilirubin Urine Urobilinogen Ur Leukocyte Esterase Urine RBC Urine WBC Ur Squamous Epith Cells Urine Bacteria Urine Mucus POC Glucose 262 H ABG Data ABG results: ABG 12/13/24 22:29 Specimen Type JAIDEN Sample Site Not entered O2 % 21.0 VBG pH 7.50 H VBG pO2 76 H VBG HCO3 27 H VBG Total CO2 28 VBG O2 Sat (Calc) 96 H VBG Base Excess 4 H POC Mix VBG pCO2 Pt Tmp 34.4 L O2 Delivery Device Not entered Rhythm Strip Rhythm Strip: Sinus Tach Rate: 110 Ectopy: None EKG Initial EKG: Attestation: I personally reviewed and interpreted this EKG as follows: Interpretation: No Acute Injury Pattern and Sinus Tachycardia Comments: Some peaked T waves V2-V4, otherwise unremarkable with narrow QRS and no AV block Prior EKG tracings: available for review Prior: Unchanged Discharge Plan Triage Chief Complaint: Nausea/Vomiting ED Provider: Juan Rivas Dx/Rx/DC Orders Clinical Impression: Type 1 diabetes mellitus with hyperglycemia, Nausea & vomiting Instructions: ED Diabetic Hyperglycemia Prescriptions: New ondansetron 8 mg tablet,disintegrating 8 mg PO Q8H PRN (Reason: nausea and vomiting) Qty: 12 0RF Continued insulin lispro 100 UNIT/ML insulin pen 25 unit SQ TIDCM Rx Instructions: +SLIDING SCALE insulin glargine [Lantus Solostar U-100 Insulin] 100 unit/mL (3 mL) insulin pen 50 unit subcut QPM insulin glargine [Lantus U-100 Insulin] 100 unit/mL solution 35 unit subcut QHS insulin lispro 100 unit/mL solution 25 unit subcut TIDCM Patient Comments: inject 25 three times a day (DME) insulin syringe-needle U-100 [TRUEplus Insulin] 0.5 mL 31 gauge x 5/16 syringe 1 syringe MISCELLANEOUS 4X/DAY Discontinued naproxen 500 mg tablet 500 mg PO BID Qty: 10 0RF Primary Care Provider: Care Physician,No Primary Referrals: Doctor,Your [Non-Staff] - 1-2 Days if not improving Print Language: [place] Disposition Disposition: Home, Self Care
[2024-12-13] MEDS: 0.9% Normal Saline (1000mL) 1,000 ML 999 ML IV ×2 (22:20→23:01)
--- NOTE | 2024-12-13 22:20 | EKG12_ITS ---
Test Reason : Blood Pressure : */* mmHG Vent. Rate : 103 BPM Atrial Rate : 103 BPM P-R Int : 152 ms QRS Dur : 82 ms QT Int : 332 ms P-R-T Axes : 70 69 62 degrees QTcB Int : 434 ms Sinus tachycardia Otherwise normal ECG Confirmed by Doyle Morales ([id number]), newspaper copy editor DOMINIC KEENE ([id number]) on 12/15/2024 12:14:41 PM Referred By: Confirmed By: Doyle Morales
[2024-12-13] MEDS: Ondansetron 4 MG/2 ML Vial IV (22:21)
[2024-12-13 22:24] LABS: Absolute Lymphocyte Count 3.83 X10^3/uL (0.83-4.51); Absolute Neutrophil Count 6.1 X10^3/uL (2.0-7.7); Basophil# 0.07 X10^3/uL; Basophil% 0.6 % (0-1); Eosinophil# 0.37 X10^3/uL; Eosinophils% 3.3 % (0-5); Hematocrit 43.1 % (40-54); Hemoglobin 13.9 g/dL (13.0-16.5); Lymphocyte # 3.83 X10^3/ul (0.83-4.51); Lymphocyte % 33.9 % (19-41); Mean Corp Hgb Conc 32.3 g/dL (32-36); Mean Corpuscular Hgb 23.4 pg (27.0-32.0); Mean Corpuscular Volume 72.7 fL (80-94); Mean Platelet Vol. 10.5 fl (6.2-12.0); Monocyte# 0.92 X10^3/uL; Monocyte% 8.1 % (0-10); NRBC Flagged by Analyzer 0 % (0-5); Neutrophil # 6.07 X10^3/uL (2.7-7.7); Neutrophil % 53.8 % (47-70); Platelet Count 449 K/mm3 (150-450); RBC Distribution Width CV 15.2 % (11.6-14.6); RBC Distribution Width SD 38.6 fl (35.1-43.9); Red Blood Count 5.93 M/mm3 (4.6-6.2); White Blood Count 11.3 K/mm3 (4.4-11.0)
[2024-12-13 22:33] LABS: Blood Gas Specimen Type VEN; O2 Delivery Device Not entered; SITE Not entered; VBG BASE EXCESS 4 mmol/L (-1.0-3.5); VBG Bicarbonate 27 mmol/L (22-26); VBG PO2 76 mmHg (25-40); VBG SO2 96 % (50-70); VBG TCO2 28 mmol/L (23-33); VBG pCO2 34.4 mmHg (41-51)
[2024-12-13 22:38] LABS: Bacteria 0 SEEN /hpf (None Seen); Mucous, Urine 0 SEEN /hpf (<or=2+); Red Blood Cells-Urine 0 SEEN /hpf (0-5); Squamous Epithelial Cells - UA 0 SEEN /hpf (0-5); White Blood Cells 0 SEEN /hpf (0-5)
[2024-12-13 22:44] LABS: BETA-HYDROXYBUTYRATE 1.7 mmol/L (0.0-0.3)
[2024-12-13 22:46] LABS: Color, Urine Straw (Yellow); Glucose, Dipstick 1000 mg/dl (Normal); Ketone-Dipstick 5 mg/dl (Negative); Leukocyte Esterase-Dipstick Negative /ul (Negative); Nitrite-Dipstick Negative (Negative); Occult Blood-Urine 25 /ul (Negative); Protein-Dipstick 30 mg/dl (Negative); Specific Gravity, Urine 1.005 (1.002-1.030); Urine Bilirubin Dipstick Negative (Negative); Urine Clarity Clear (Clear); Urine Urobilinogen Normal (Normal)
[2024-12-13 22:49] LABS: Anion Gap 12 (5-15); BUN 14 mg/dL (4-19); BUN/Creat Ratio 16.3 RATIO (10-20); Carbon Dioxide 27.2 mmol/L (21.0-32.0); Chloride 90 mmol/L (98-108); Creatinine, Serum 0.84 mg/dL (0.70-1.20); EST Glomerular Filtration Rate 123 (>60); Estimated Creatinine Clearance 96.24 ml/min (50-250); Glucose 520 mg/dL (70-99); Potassium 5.3 mmol/L (3.3-5.1); Sodium Level 129 mmol/L (133-145)
[2024-12-13 23:12] VITALS: BP 106/74; PULSE 95; RESP 16; O2SAT 99
[2024-12-13] MEDS: Insulin Lispro 100 UNIT in 0.9% Normal Saline (100mL Bag) 99 ML 5.2 UNIT CONT INF (23:19)
[2024-12-14 01:00] VITALS: BP 96/63; PULSE 100; RESP 16; O2SAT 97
[2024-12-14 01:22] LABS: Bedside Glucose 433 mg/dL (74-106)
[2024-12-14 01:22] LABS: Bedside Glucose 262 mg/dL (74-106)
[2024-12-14 01:22] LABS: Bedside Glucose 337 mg/dL (74-106)
[2024-12-14 01:46] LABS: Anion Gap 9 (5-15); BUN 10 mg/dL (4-19); BUN/Creat Ratio 16.2 RATIO (10-20); Calcium,Total 7.8 mg/dL (7.6-11.0); Chloride 103 mmol/L (98-108); Creatinine, Serum 0.64 mg/dL (0.70-1.20); EST Glomerular Filtration Rate 133 (>60); Estimated Creatinine Clearance 126.32 ml/min (50-250); Glucose 275 mg/dL (70-99); Potassium 3.6 mmol/L (3.3-5.1); Sodium Level 136 mmol/L (133-145)
[2024-12-14 02:20] VITALS: BP 112/68; PULSE 113; RESP 14; TEMP 36.9; O2SAT 96
[2024-12-14 02:31] LABS: Bedside Glucose 286 mg/dL (74-106)
== END 2024-12-14 02:37 | disposition home or self-care (01) ==
PROVIDERS: Emergency Provider Emergency Medicine; Visit Provider Emergency Medicine
DX: E10.65 Type 1 diabetes mellitus with hyperglycemia (principal); R11.2 Nausea with vomiting, unspecified; F17.210 Nicotine dependence, cigarettes, uncomplicated; F17.290 Nicotine dependence, other tobacco product, uncomplicated; F17.220 Nicotine dependence, chewing tobacco, uncomplicated
CPT/HCPCS: 80048; 81001; 82010; 82803; 82962; 85025; 93005; 96361; 96374; 96376; 99285; A4216; J2405

== ENCOUNTER 2025-01-26 11:22 | Emergency (ER) | payer MEDICAID, SELFPAY ==
[2025-01-26] VITALS (8 sets, daily range): BP systolic 125–136; BP diastolic 61–98; PULSE 91–138; RESP 14–20; TEMP 36.6; O2SAT 97–99; BMI 18.6
--- NOTE | 2025-01-26 11:41 | EKG12_ITS ---
Test Reason : Blood Pressure : */* mmHG Vent. Rate : 117 BPM Atrial Rate : 117 BPM P-R Int : 154 ms QRS Dur : 84 ms QT Int : 312 ms P-R-T Axes : 69 66 59 degrees QTcB Int : 435 ms Sinus tachycardia Right atrial enlargement Borderline ECG Confirmed by Doyle Morales ([id number]), editorial clerk COREY MICHAEL ([id number]) on 01/30/2025 12:47:37 PM Referred By: Confirmed By: Doyle Morales
--- NOTE | 2025-01-26 12:11 | RAD_ITS ---
PROCEDURE: CHEST PA AND LATERAL 01/26/2025 REASON FOR EXAM: CHEST PAIN TECHNIQUE: CHEST PA AND LATERAL COMPARISON: Prior study dated October 19, 2024. FINDINGS: Hardware: EKG electrodes. Heart: Unremarkable Mediastinum: The mediastinal contour is unremarkable. Lungs: The lungs are clear. Bones: The bones are unremarkable. RAD/Chest PA and Lateral IMPRESSION: NO ACUTE FINDINGS. Reading Location: [id number]
[2025-01-26] MEDS: 0.9% Normal Saline (1000mL) 1,000 ML 999 ML IV ×2 (12:16→13:29)
--- NOTE | 2025-01-26 12:24 | EDS_ITS ---
HPI <ZAIN Baker - Last Filed: 01/26/25 17:18> History of Present Illness Chief Complaint: Palpitations Narrative Narrative: 29-year-old male presents with heart racing that occurs frequently but seems worse today. States it first started at age 15 and would occur about once a year. It is happening frequently throughout his 20s. He states he has been seen by primary care at multiple ERs without a source found. His PCP is supposed to be ordering a Holter monitor and cardiology referral but he has not heard from them. Today his heart has been racing all day long and he has mild left-sided chest pain. He states he was nauseated and vomited once this morning. He states he has had these associated symptoms before when it is really bad. He has a history of type 1 diabetes, anxiety and depression, and tobacco use. He states he smokes marijuana infrequently. Denies alcohol or other drug use. Denies history of CAD or DVT/PE. 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 H/O fracture of skull Anxiety Depression Septic shock Type 1 diabetes mellitus Type I diabetes mellitus, uncontrolled Home Medications ?Medication ?Instructions ?Recorded ?Last Taken ?Type insulin lispro 100 unit/mL 25 unit SQ TIDCM short acti ng 03/05/21 03/04/21 History subcutaneous pen insulin insulin glargine 100 unit/mL (3 50 unit subcut QPM linda betes 08/18/22 Unknown History mL) subcutaneous pen (Lantus Solostar U-100 Insulin) insulin glargine 100 unit/mL 35 unit subcut QHS Unknown History subcutaneous solution (Lantus U-100 Insulin) insulin lispro 100 unit/mL 25 unit subcut TIDCM Unknown History subcutaneous solution insulin syringe-needle U-100 0.5 10/19/24 Unknown His tory mL 31 gauge x 12/22 (TRUEplus Insulin) ondansetron 8 mg disintegrating 8 mg PO Q8H PRN nausea and 12/14/24 Unknown Rx tablet vomiting #12 tabs Allergy/AdvReac Type Severity Reaction Status Date / Time No Known Allergies Allergy Verified 01/26/25 11:25 Family History Father Diabetes Surgical History H/O skin graft Social History household members: family Smoking Status: Current some day smoker tobacco type: cigarettes, e-cigarettes and smokeless tobacco Smokeless tobacco user: chewing tobacco second hand exposure: Yes alcohol intake: never substance use type: does not use ROS <ZAIN Baker - Last Filed: 01/26/25 17:18> ROS ED ROS Narrative Constitutional: Negative for fever, chills, malaise. CVS: Positive for palpitations, chest pain.. Respiratory: Negative for shortness of breath, cough. GI: Negative for abdominal pain, nausea, vomiting. EXAM <ZAIN Baker - Last Filed: 01/26/25 17:18> Physical Exam Narrative Exam Narrative: CONST: Patient sitting in no acute distress. EYES: Normal inspection. NECK: Normal inspection. RESP: No respiratory distress, CTAB. CVS: Tachycardic with regular rhythm, no murmur, no gallop. ABD: Soft and nontender, no guarding or rebound, nondistended. SKIN: Color normal, no rash, warm, dry, intact. EXTREMITIES: Normal appearance, no pedal edema. NEURO: Alert and answering questions appropriately. PSYCH: Normal affect. Const Vital Signs: 01/26/25 11:24 01/26/25 12:12 01/26/25 12:20 Temperature 97.9 F Temperature Source Temporal Pulse Rate 138 H 109 H Respiratory Rate 20 H 16 Respiratory Effort Normal Blood Pressure 136/87 H 126/73 H Blood Pressure Mean 103 90 Pulse Ox 98 99 Oxygen Delivery Method Room Air 01/26/25 13:12 01/26/25 14:00 01/26/25 15:00 Temperature Temperature Source Pulse Rate 102 H 98 97 Respiratory Rate 16 16 15 Respiratory Effort Blood Pressure 129/61 H 125/95 H 125/95 H Blood Pressure Mean 83 105 105 Pulse Ox 97 97 97 Oxygen Delivery Method Room Air Room Air Room Air 01/26/25 16:00 01/26/25 17:04 Temperature Temperature Source Pulse Rate 102 H 91 Respiratory Rate 18 17 Respiratory Effort Blood Pressure 135/98 H 125/86 H Blood Pressure Mean 110 99 Pulse Ox 98 98 Oxygen Delivery Method Room Air Room Air <Dr. Keisha Handy DO - Last Filed: 01/30/25 23:48> Physical Exam Const Vital Signs: 01/26/25 11:24 01/26/25 12:12 01/26/25 12:20 Temperature 97.9 F Temperature Source Temporal Pulse Rate 138 H 109 H Respiratory Rate 20 H 16 Respiratory Effort Normal Blood Pressure 136/87 H 126/73 H Blood Pressure Mean 103 90 Pulse Ox 98 99 Oxygen Delivery Method Room Air 01/26/25 13:12 01/26/25 14:00 01/26/25 15:00 Temperature Temperature Source Pulse Rate 102 H 98 97 Respiratory Rate 16 16 15 Respiratory Effort Blood Pressure 129/61 H 125/95 H 125/95 H Blood Pressure Mean 83 105 105 Pulse Ox 97 97 97 Oxygen Delivery Method Room Air Room Air Room Air 01/26/25 16:00 01/26/25 17:04 Temperature Temperature Source Pulse Rate 102 H 91 Respiratory Rate 18 17 Respiratory Effort Blood Pressure 135/98 H 125/86 H Blood Pressure Mean 110 99 Pulse Ox 98 98 Oxygen Delivery Method Room Air Room Air MDM <ZAIN Baker - Last Filed: 01/26/25 17:18> [facility] MDM Narrative Medical decision making narrative: Differential includes but not limited to arrhythmia, thyroid abnormality, DKA 29-year-old male has had intermittent palpitations for years but feels they are worse today and has associated chest pain and 1 episode of nausea and vomiting this morning. He appears well and nontoxic. He is laughing and joking during the exam. In triage BP was 136/87, HR 138, 98% on room air, and otherwise normal. During my exam he still tachycardic with a regular rhythm around 110 bpm and an otherwise benign exam. Labs show mild anemia at 12.4 which he has a history of. Troponin is in the normal range at 15. TSH WNL. D-dimer negative. Glucose is 484 with normal CO2 and gap ruling out DKA. VBG shows normal pH of 7.39. He states he took 30 units of Humalog before eating pancakes and sausage this morning. He was treated with 2 L IV fluids and 10 units of insulin but he only came down 9 point so he was given an additional 10 units of insulin and trended down to 189. I discussed the importance of compliance with his diet and insulin regimen. He should follow-up with his primary care doctor who is ordering a Holter monitor and cardiology referral for his ongoing palpitations. He was discharged in stable condition Lab Data Attestation: I reviewed the patient's lab results. Labs: Laboratory Results - last 24 hr 01/26/25 01/26/25 01/26/25 12:09 13:30 14:06 WBC 10.4 RBC 5.15 Hgb 12.4 L Hct 38.7 L MCV 75.1 L MCH 24.1 L MCHC 32.0 RDW Std Deviation 42.6 RDW Coeff of Alec 15.8 H Plt Count 328 MPV 10.8 Immature Gran % (Auto) 0.300 Neut % (Auto) 58.3 Lymph % (Auto) 28.9 [place] % (Auto) 6.8 Eos % (Auto) 5.1 H Baso % (Auto) 0.6 Absolute Neuts (auto) 6.1 Absolute Lymphs (auto) 3.02 Nucleated RBC % 0 D-Dimer Quant (PE/DVT) 0.27 Sodium 133 Potassium 4.3 Chloride 98 Carbon Dioxide 22.8 Anion Gap 13 BUN 18 Creatinine 0.65 L Estim Creat Clear Calc 150.26 Est GFR (MDRD) Non-Af 132 BUN/Creatinine Ratio 28.2 H Glucose 484 H* Calcium 8.7 Troponin T High Sens 15 D b-Hydroxybutyric mmol/L 1.1 H TSH 2.430 Urine Opiates Screen NEGATIVE U Buprenorphine Qual NEGATIVE Ur Oxycodone Screen NEGATIVE Urine Methadone Screen NEGATIVE Urine Fentanyl Screen NEGATIVE Ur Barbiturates Screen NEGATIVE Ur Phencyclidine Scrn NEGATIVE Ur Amphetamines Screen NEGATIVE U Benzodiazepines Scrn NEGATIVE Urine Cocaine Screen NEGATIVE U Cannabinoids Screen NEGATIVE POC Glucose 427 H 01/26/25 01/26/25 14:31 15:25 WBC RBC Hgb Hct MCV MCH MCHC RDW Std Deviation RDW Coeff of Alec Plt Count MPV Immature Gran % (Auto) Neut % (Auto) Lymph % (Auto) [place] % (Auto) Eos % (Auto) Baso % (Auto) Absolute Neuts (auto) Absolute Lymphs (auto) Nucleated RBC % D-Dimer Quant (PE/DVT) Sodium Potassium Chloride Carbon Dioxide Anion Gap BUN Creatinine Estim Creat Clear Calc Est GFR (MDRD) Non-Af BUN/Creatinine Ratio Glucose Calcium Troponin T High Sens b-Hydroxybutyric mmol/L TSH Urine Opiates Screen U Buprenorphine Qual Ur Oxycodone Screen Urine Methadone Screen Urine Fentanyl Screen Ur Barbiturates Screen Ur Phencyclidine Scrn Ur Amphetamines Screen U Benzodiazepines Scrn Urine Cocaine Screen U Cannabinoids Screen POC Glucose 475 H* 290 H ABG Data ABG results: ABG 01/26/25 13:51 Specimen Type JAIDEN Sample Site Not entered VBG pH 7.39 VBG pO2 51 H VBG HCO3 27 H VBG Total CO2 29 VBG O2 Sat (Calc) 85 H VBG Base Excess 2 POC Mix VBG pCO2 Pt Tmp 45.0 O2 Delivery Device Not entered Radiography Diagnostic Testing: Clinical Impression(s) from Imaging Studies Chest X-Ray 01/26/25 12:11 IMPRESSION: NO ACUTE FINDINGS. Reading Location: [place] [id number] ED attending interpretation of 2 view chest x-ray shows normal heart size, no acute infiltrate. EKG Initial EKG: Attestation: I personally reviewed and interpreted this EKG as follows: Interpretation: No Acute Injury Pattern and Sinus Tachycardia Comments: Sinus tachycardia at 117 bpm No acute ischemic changes <Dr. Keisha Handy, DO - Last Filed: 01/30/25 23:48> [facility] Lab Data Labs: Laboratory Results - last 24 hr 01/26/25 01/26/25 01/26/25 12:09 13:30 14:06 WBC 10.4 RBC 5.15 Hgb 12.4 L Hct 38.7 L MCV 75.1 L MCH 24.1 L MCHC 32.0 RDW Std Deviation 42.6 RDW Coeff of Alec 15.8 H Plt Count 328 MPV 10.8 Immature Gran % (Auto) 0.300 Neut % (Auto) 58.3 Lymph % (Auto) 28.9 [place] % (Auto) 6.8 Eos % (Auto) 5.1 H Baso % (Auto) 0.6 Absolute Neuts (auto) 6.1 Absolute Lymphs (auto) 3.02 Nucleated RBC % 0 D-Dimer Quant (PE/DVT) 0.27 Sodium 133 Potassium 4.3 Chloride 98 Carbon Dioxide 22.8 Anion Gap 13 BUN 18 Creatinine 0.65 L Estim Creat Clear Calc 150.26 Est GFR (MDRD) Non-Af 132 BUN/Creatinine Ratio 28.2 H Glucose 484 H* Calcium 8.7 Troponin T High Sens 15 D b-Hydroxybutyric mmol/L 1.1 H TSH 2.430 Urine Opiates Screen NEGATIVE U Buprenorphine Qual NEGATIVE Ur Oxycodone Screen NEGATIVE Urine Methadone Screen NEGATIVE Urine Fentanyl Screen NEGATIVE Ur Barbiturates Screen NEGATIVE Ur Phencyclidine Scrn NEGATIVE Ur Amphetamines Screen NEGATIVE U Benzodiazepines Scrn NEGATIVE Urine Cocaine Screen NEGATIVE U Cannabinoids Screen NEGATIVE POC Glucose 427 H 01/26/25 01/26/25 14:31 15:25 WBC RBC Hgb Hct MCV MCH MCHC RDW Std Deviation RDW Coeff of Alec Plt Count MPV Immature Gran % (Auto) Neut % (Auto) Lymph % (Auto) [place] % (Auto) Eos % (Auto) Baso % (Auto) Absolute Neuts (auto) Absolute Lymphs (auto) Nucleated RBC % D-Dimer Quant (PE/DVT) Sodium Potassium Chloride Carbon Dioxide Anion Gap BUN Creatinine Estim Creat Clear Calc Est GFR (MDRD) Non-Af BUN/Creatinine Ratio Glucose Calcium Troponin T High Sens b-Hydroxybutyric mmol/L TSH Urine Opiates Screen U Buprenorphine Qual Ur Oxycodone Screen Urine Methadone Screen Urine Fentanyl Screen Ur Barbiturates Screen Ur Phencyclidine Scrn Ur Amphetamines Screen U Benzodiazepines Scrn Urine Cocaine Screen U Cannabinoids Screen POC Glucose 475 H* 290 H ABG Data ABG results: ABG 01/26/25 13:51 Specimen Type JAIDEN Sample Site Not entered VBG pH 7.39 VBG pO2 51 H VBG HCO3 27 H VBG Total CO2 29 VBG O2 Sat (Calc) 85 H VBG Base Excess 2 POC Mix VBG pCO2 Pt Tmp 45.0 O2 Delivery Device Not entered Radiography Diagnostic Testing: Clinical Impression(s) from Imaging Studies Chest X-Ray 01/26/25 12:11 IMPRESSION: NO ACUTE FINDINGS. Reading Location: [place] [address] Treatment and Re-Evaluation :: I have personally performed a face to face assessment of the patient and have reviewed the VENTURA Note. I performed a substantive portion of the visit including all aspects of the following. My duarte findings include: History is patient is 29-year-old male with history of poorly controlled type 1 diabetes mellitus presenting with palpitations near syncope. Both of the symptoms are chronic for him. He is tachycardic upon arrival. Concern for possible DKA,, arrhythmia, thyroid abnormality, symptomatic anemia or infection versus dehydration. Is given IV fluids. Is hyperglycemic with a blood sugar of 484 however he has a normal anion gap. As he is a type I diabetic will obtain BHB and VBG. These are not particularly consistent with DKA. Is given insulin and further IV fluids with improvement of his blood sugar. He is relatively asymptomatic. Workup otherwise is normal with no arrhythmia. Patient be discharged home with instructions on staying compliant with his diabetic treatments and to follow-up with his PCP. Given that his presenting symptoms are chronic and been ongoing for years I do not think he needs emergent workup for him at this time. Other additions or changes: [None] Discharge Plan Triage Chief Complaint: Palpitations ED Midlevel Provider: [place] ED Provider: Keisha Handy Dx/Rx/DC Orders Clinical Impression: Palpitations, Hyperglycemia due to type 1 diabetes mellitus Instructions: Diabetes Carbs Fats Protein, ED Palpitations Prescriptions: No Action insulin lispro 100 UNIT/ML insulin pen 25 unit SQ TIDCM Rx Instructions: +SLIDING SCALE insulin glargine [Lantus Solostar U-100 Insulin] 100 unit/mL (3 mL) insulin pen 50 unit subcut QPM insulin glargine [Lantus U-100 Insulin] 100 unit/mL solution 35 unit subcut QHS insulin lispro 100 unit/mL solution 25 unit subcut TIDCM Patient Comments: inject 25 three times a day (DME) insulin syringe-needle U-100 [TRUEplus Insulin] 0.5 mL 31 gauge x 5/16 syringe 1 syringe MISCELLANEOUS 4X/DAY ondansetron 8 mg tablet,disintegrating 8 mg PO Q8H PRN (Reason: nausea and vomiting) Qty: 12 0RF Primary Care Provider: Care Physician,No Primary Referrals: Care Physician,No Primary [Primary Care Provider] - Activity Restrictions/Additional Instructions: I am not sure what the cause of your palpitations and is. Your screening labs look normal other than very high glucose over 480. It is important you take your insulin as scheduled and make good food choices for a diabetic diet. Follow-up your primary care doctor. Print Language: Welsh Disposition Disposition: Home, Self Care Discharge Date/Time: 01/26/25 17:28
[2025-01-26 12:34] LABS: Absolute Lymphocyte Count 3.02 X10^3/uL (0.83-4.51); Absolute Neutrophil Count 6.1 X10^3/uL (2.0-7.7); Basophil# 0.06 X10^3/uL; Basophil% 0.6 % (0-1); Eosinophil# 0.53 X10^3/uL; Eosinophils% 5.1 % (0-5); Hematocrit 38.7 % (40-54); Hemoglobin 12.4 g/dL (13.0-16.5); Lymphocyte # 3.02 X10^3/ul (0.83-4.51); Lymphocyte % 28.9 % (19-41); Mean Corpuscular Hgb 24.1 pg (27.0-32.0); Mean Corpuscular Volume 75.1 fL (80-94); Mean Platelet Vol. 10.8 fl (6.2-12.0); Monocyte# 0.71 X10^3/uL; Monocyte% 6.8 % (0-10); NRBC Flagged by Analyzer 0 % (0-5); Neutrophil # 6.09 X10^3/uL (2.7-7.7); Neutrophil % 58.3 % (47-70); Platelet Count 328 K/mm3 (150-450); RBC Distribution Width CV 15.8 % (11.6-14.6); RBC Distribution Width SD 42.6 fl (35.1-43.9); Red Blood Count 5.15 M/mm3 (4.6-6.2); White Blood Count 10.4 K/mm3 (4.4-11.0)
[2025-01-26 12:45] LABS: D-Dimer Quantitative (DVT/PE) 0.27 FEU/ug/m (0.27-0.49)
[2025-01-26 13:02] LABS: Anion Gap 13 (5-15); BUN 18 mg/dL (4-19); BUN/Creat Ratio 28.2 RATIO (10-20); Calcium,Total 8.7 mg/dL (7.6-11.0); Carbon Dioxide 22.8 mmol/L (21.0-32.0); Chloride 98 mmol/L (98-108); Creatinine, Serum 0.65 mg/dL (0.70-1.20); EST Glomerular Filtration Rate 132 (>60); Estimated Creatinine Clearance 150.26 ml/min (50-250); Glucose 484 mg/dL (70-99); Potassium 4.3 mmol/L (3.3-5.1); Sodium Level 133 mmol/L (133-145)
[2025-01-26 13:17] LABS: Troponin T High Sensitivity 15 ng/L (<=22)
[2025-01-26] MEDS: Insulin Lispro 100 UNIT/ML INSULN.PEN 10 UNIT SC ×2 (13:29→15:23)
[2025-01-26 13:52] LABS: Bedside Glucose 427 mg/dL (74-106)
[2025-01-26 13:54] LABS: Blood Gas Specimen Type VEN; O2 Delivery Device Not entered; SITE Not entered; VBG BASE EXCESS 2 mmol/L (-1.0-3.5); VBG Bicarbonate 27 mmol/L (22-26); VBG PO2 51 mmHg (25-40); VBG SO2 85 % (50-70); VBG TCO2 29 mmol/L (23-33); VBG pH 7.39 (7.32-7.42)
[2025-01-26 14:06] LABS: BETA-HYDROXYBUTYRATE 1.1 mmol/L (0.0-0.3)
[2025-01-26 14:48] LABS: Amphetamine Urine NEGATIVE (<1000 ng/mL); Barbiturate Urine NEGATIVE (< 200 ng/mL); Benzodiazepine Urine NEGATIVE (< 200 ng/mL); Buprenorphine Urine NEGATIVE (< 200 ng/mL); Cocaine Urine NEGATIVE (< 300 ng/mL); Fentanyl, Urine NEGATIVE; Methadone Urine NEGATIVE (< 300 ng/mL); Opiates Urine NEGATIVE (< 300 ng/mL); Oxycodone, Urine NEGATIVE (< 100 ng/mL); PCP Urine NEGATIVE (< 25 ng/mL); THC Urine NEGATIVE (< 50 ng/mL)
[2025-01-26 14:48] LABS: Bedside Glucose 475 mg/dL (74-106)
--- NOTE | 2025-01-26 15:20 | CM.ED ---
Social work Reason for referral: no PCP Referral source: case find This SW identified patient's lack of PCP and need for resources. SW entered patient's room, introducing self and role at [facility]. Patient welcomed SW visit and stated being unsure if patient had a PCP or not due to not hearing from one. Patient accepted resources of [facility] Provider Directory and [employer] information. Patient denied needing further resources at this time. Vernell Gordon, [employer] HEL[employer], [employer]
[2025-01-26] MEDS: Acetaminophen 500 MG Tablet 1000 MG PO (15:22)
[2025-01-26 15:47] LABS: Bedside Glucose 290 mg/dL (74-106)
[2025-01-26 17:22] LABS: Bedside Glucose 189 mg/dL (74-106)
== END 2025-01-26 17:28 | disposition home or self-care (01) ==
PROVIDERS: Physician Assistant; Emergency Provider Emergency Medicine; Visit Provider Emergency Medicine
DX: R00.2 Palpitations (principal); E10.65 Type 1 diabetes mellitus with hyperglycemia; Z79.4 Long term (current) use of insulin; F12.90 Cannabis use, unspecified, uncomplicated; F17.290 Nicotine dependence, other tobacco product, uncomplicated; F17.210 Nicotine dependence, cigarettes, uncomplicated; F17.220 Nicotine dependence, chewing tobacco, uncomplicated
CPT/HCPCS: 71046; 80048; 80307; 82010; 82803; 82962; 84443; 84484; 85025; 85379; 93005; 96360; 96361; 99283; A4216

== ENCOUNTER 2025-02-05 02:20 | Observation (INO) | payer MEDICAID, SELFPAY ==
[2025-02-05] VITALS (13 sets, daily range): BP systolic 108–133; BP diastolic 70–91; PULSE 75–118; RESP 15–20; TEMP 36.5–37; O2SAT 96–100; BMI 18.3
--- NOTE | 2025-02-05 02:27 | EKG12_ITS ---
Test Reason : DYSRHYTHMIA Blood Pressure : */* mmHG Vent. Rate : 112 BPM Atrial Rate : 112 BPM P-R Int : 148 ms QRS Dur : 84 ms QT Int : 314 ms P-R-T Axes : 67 59 54 degrees QTcB Int : 428 ms Sinus tachycardia Otherwise normal ECG Confirmed by NESTOR MIRELES, ERIC ([id number]), video news editor DOMINIC KEENE ([id number]) on 02/06/2025 6:37:13 AM Referred By: Confirmed By: ERIC BAEZ MD
--- NOTE | 2025-02-05 02:28 | EX.ED.DYSGE1 ---
HPI History of Present Illness Chief Complaint: Hyperglycemia Detail of Chief Complaint: Hyperglycemia and vomiting Informant: patient Narrative Narrative: Patient presents to the emergency department complaint of vomiting that started around 6 PM. He vomited a total of 4 times. He denies diarrhea. He is a type I diabetic. Earlier in the day his blood glucose was 200 and he took his meds. Afterwards his meter read high. For EMS meter reads high. For arrival in the emergency department meter read high. Patient has history of DKA. He denies recent illness. He denies fevers or chills or sweats. PFSH [facility] Medical History (Updated 02/05/25 @ 03:[address] 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 H/O fracture of skull Type I diabetes mellitus, uncontrolled Home Medications Medication Instructions Recorded Last Taken Type insulin lispro 100 unit/mL See Rx Instructions SQ TIDCM short 03/05/21 03/04/21 History subcutaneous pen acting insulin insulin glargine 100 unit/mL (3 30 unit subcut QPM diabetes 08/18/22 Unknown History mL) subcutaneous pen (Lantus Solostar U-100 Insulin) insulin glargine 100 unit/mL 35 unit subcut QHS 10/19/24 Unknown History subcutaneous solution (Lantus U-100 Insulin) insulin lispro 100 unit/mL 25 unit subcut TIDCM 10/19/24 Unknown History subcutaneous solution insulin syringe-needle U-100 0.5 10/19/24 Unknown History mL 31 gauge x 5/16" (TRUEplus Insulin) ondansetron 8 mg disintegrating 8 mg PO Q8H PRN nausea and 12/14/24 Unknown Rx tablet vomiting #12 tabs Allergy/AdvReac Type Severity Reaction Status Date / Time No Known Allergies Allergy Verified 02/05/25 02:24 Family History Father Diabetes Surgical History H/O skin graft Social History household members: family Smoking Status: Current some day smoker tobacco type: cigarettes, e-cigarettes and smokeless tobacco Smokeless tobacco user: chewing tobacco second hand exposure: Yes alcohol intake: never substance use type: does not use ROS ROS ED Review of Systems ROS Unobtainable: other Constitutional Constitutional ED: Reports lethargy; Denies chills, fever(s), sweats or weight loss Eyes Eyes: Denies blurry vision, change in vision or diplopia ENT ENT ED: Denies rhinorrhea or sore throat Cardiovascular Cardiovascular: Denies chest pain, orthopnea or racing heartbeat Respiratory/Chest Respiratory/Chest: Denies cough, dyspnea, dyspnea on exertion, orthopnea or sputum Gastrointestinal Gastrointestinal: Reports nausea and vomiting; Denies abdominal pain or diarrhea Genitourinary Genitourinary ED: Denies dysuria, hematuria or urinary frequency Musculoskeletal Musculoskeletal: Denies arthralgias, back pain, myalgias or neck pain Integumentary Denies abscess, Abrasions or rash Neurologic Neurologic: Denies headache(s) or weakness Psychiatric Psychiatric: Denies anxiety, depression or suicidal thoughts Endocrine Endocrinology: Denies polydipsia, polyphagia or polyuria Hematologic/Lymphatic Hematologic/Lymphatic: Denies easy bleeding, easy bruising or lymphadenopathy Allergic/Immunologic Allergic/Immunologic ED: Denies mouth swelling, tongue swelling or urticaria EXAM Physical Exam Const Vital Signs: 02/05/25 02:20 Temperature 98.6 F Temperature Source Oral Pulse Rate 118 H Respiratory Rate 20 H Pulse Ox 98 Oxygen Delivery Method Room Air Positive well nourished and well developed General Appearance ED: well developed and NAD HEENT Reports TM's clear and moist mucous membranes normocephalic and atraumatic; Negative for trauma or tenderness Tympanic Membrane ED: Yes TM's clear Eyes PERRL and EOMs intact bilaterally General Eye ED: Negative for pale conjunctiva or scleral icterus Neck no lymphadenopathy, supple and no JVD General: Negative for tenderness Chest Wall inspection of chest normal and palpation of chest normal Chest: Negative for tenderness Resp normal respiratory effort and clear to auscultation bilaterally Effort and Inspection: Negative for respiratory distress or pain with movement Auscultation: Negative for rhonchi, wheezes or diminished lung sounds Cardio regular rate, regular rhythm, S1 normal heart sound, S2 normal heart sound and no murmurs Peripheral Pulses: pulses 2+ throughout GI normal to inspection, nondistended, normoactive bowel sounds, soft to palpation, non-tender, non-distended and no masses Back/Spine no CVA tenderness and no thoracic nor lumbar tenderness Extremity normal to inspection General Extremety ED: Negative for edema General Extremity: Negative for edema Neuro oriented x3, CN's II-XII intact bilaterally, no sensory deficits noted and gait normal Sensorium / Orientation: awake, alert, oriented to person, oriented to place and oriented to time Motor Exam: strength 5/5 throughout and strength abnormal Psych mental status grossly normal Skin no rashes or lesions noted and no wounds MDM MDM MDM Narrative Medical decision making narrative: Patient presents with hyperglycemia and vomiting. He is a type I diabetic with history of DKA. Denies recent illness. IV line established. He was ordered normal saline fluid bolus. He was started on an insulin drip. CBC with differential obtained for white count of 13.0 with hemoglobin 12.3 and platelet count of 344. Chemistry showed sodium 128 with potassium 4.5 and chloride of 86. CO2 was 19.6 and anion gap of 23 BUN of 19 and creatinine 0.97. Glucose was elevated 736. Case will be discussed with hospitalist to evaluate patient for admission for DKA Lab Data Attestation: I reviewed the patient's lab results. Labs: Laboratory Results - last 24 hr 02/05/25 02:22 WBC 13.0 H RBC 5.13 Hgb 12.3 L Hct 39.3 L MCV 76.6 L MCH 24.0 L MCHC 31.3 L RDW Std Deviation 45.2 H RDW Coeff of Alec 16.2 H Plt Count 344 MPV 11.4 Immature Gran % (Auto) 0.200 Neut % (Auto) 55.6 Lymph % (Auto) 31.1 [place] % (Auto) 9.0 Eos % (Auto) 3.4 Baso % (Auto) 0.7 Absolute Neuts (auto) 7.3 Absolute Lymphs (auto) 4.05 Nucleated RBC % 0 Sodium 128 L Potassium 4.5 Chloride 86 L Carbon Dioxide 19.6 L Anion Gap 23 H BUN 19 Creatinine 0.97 Estim Creat Clear Calc 99.02 Est GFR (MDRD) Non-Af 110 BUN/Creatinine Ratio 19.9 Glucose 736 H* Calcium 10.0 POC Glucose > 500 H* EKG Initial EKG: Attestation: I personally reviewed and interpreted this EKG as follows: Comments: Sinus rhythm with ventricular rate of 112 bpm with no acute ST segment changes Critical Care Time Critical Care Time: Yes Critical care time (excluding procedures): 30-74 minutes, Including time spent:, Discussing w/Patient &/or Family/Architectural Renderer, Discussing w/Consultants, Arranging Admission or Transfer, Performing Direct Patient Care at Bedside and - (30 minutes) Discharge Plan Triage Chief Complaint: Hyperglycemia Other Complaint: Nausea/Vomiting ED Provider: Babita Rivera Dx/Rx/DC Orders Clinical Impression: DKA (diabetic ketoacidosis), Hyperglycemia, Vomiting Prescriptions: No Action insulin lispro 100 UNIT/ML insulin pen See Rx Instructions SQ TIDCM Rx Instructions: SLIDING SCALE SQ 3 times daily with meals; +SLIDING SCALE insulin glargine [Lantus Solostar U-100 Insulin] 100 unit/mL (3 mL) insulin pen 30 unit subcut QPM insulin glargine [Lantus U-100 Insulin] 100 unit/mL solution 35 unit subcut QHS insulin lispro 100 unit/mL solution 25 unit subcut TIDCM Patient Comments: inject 25 three times a day (DME) insulin syringe-needle U-100 [TRUEplus Insulin] 0.5 mL 31 gauge x 5/16" syringe 1 syringe MISCELLANEOUS 4X/DAY ondansetron 8 mg tablet,disintegrating 8 mg PO Q8H PRN (Reason: nausea and vomiting) Qty: 12 0RF Primary Care Provider: Care Physician,No Primary Referrals: Care Physician,No Primary [Primary Care Provider] - Print Language: Sinhala Disposition Disposition: [facility]
[2025-02-05] MEDS: 0.9% Normal Saline (1000mL) 1,000 ML 999 ML IV ×2 (02:32→04:54)
[2025-02-05 02:40] LABS: Bedside Glucose > 500 mg/dL (74-106)
[2025-02-05 02:45] LABS: Absolute Lymphocyte Count 4.05 X10^3/uL (0.83-4.51); Absolute Neutrophil Count 7.3 X10^3/uL (2.0-7.7); Basophil# 0.09 X10^3/uL; Basophil% 0.7 % (0-1); Eosinophil# 0.44 X10^3/uL; Eosinophils% 3.4 % (0-5); Hematocrit 39.3 % (40-54); Hemoglobin 12.3 g/dL (13.0-16.5); Lymphocyte # 4.05 X10^3/ul (0.83-4.51); Lymphocyte % 31.1 % (19-41); Mean Corp Hgb Conc 31.3 g/dL (32-36); Mean Corpuscular Volume 76.6 fL (80-94); Mean Platelet Vol. 11.4 fl (6.2-12.0); Monocyte# 1.17 X10^3/uL; NRBC Flagged by Analyzer 0 % (0-5); Neutrophil # 7.26 X10^3/uL (2.7-7.7); Neutrophil % 55.6 % (47-70); POSITIVE MORPHOLOGY YES; Platelet Count 344 K/mm3 (150-450); RBC Distribution Width CV 16.2 % (11.6-14.6); RBC Distribution Width SD 45.2 fl (35.1-43.9); Red Blood Count 5.13 M/mm3 (4.6-6.2)
[2025-02-05] MEDS: Ondansetron 4 MG/2 ML Vial IV (02:59)
[2025-02-05 03:00] LABS: Differential Indicated SCAN CRITERIA MET
[2025-02-05] MEDS: Insulin Lispro 100 UNIT in 0.9% Normal Saline (100mL Bag) 99 ML 6.1 UNIT CONT INF (03:00)
--- OUTSIDE RECORDS SUMMARY | 2025-02-05 03:04 | XMS RPT_ITS | CCD ---
Author Organization [facility] CliniSyny Care Team Providers Care Cob Sawyer Name Role Phone [employer] Unavailable Ingrid LIEN SEARCHER, Edwina Bahena Unavailable [phone] [employer] Unavailable [employer] Unavailable [employer] Unavailable Alvin Pena DO Unavailable [employer] Unavailable ISIDRO BRAR Unavailable Unavailable ISIDRO BRAR Unavailable Unavailable TRISTAN, RON P Unavailable Unavailable ISIDRO BRAR Unavailable Unavailable BRAULIO REEVES Unavailable Unavailable ZAN HENDRIX Unavailable Unavailable JUNE SANTA Unavailable Unavailable ISIDRO BRAR Unavailable Unavailable ISIDRO BRAR Unavailable Unavailable TRISTAN, RON P Unavailable Unavailable ISIDRO BRAR Unavailable Unavailable ISIDRO BRAR Unavailable Unavailable TRISTAN, RON P Unavailable Unavailable CURRAN, ARCADIO K Unavailable Unavailable CURRAN, ARCADIO K Unavailable Unavailable TRISTAN, RON P Unavailable Unavailable TRISTAN, RON P Unavailable Unavailable CURRAN, ARCADIO K Unavailable Unavailable CURRAN, ARCADIO K Unavailable Unavailable TRISTAN, RON P Unavailable Unavailable ISIDRO BRAR Unavailable Unavailable ISIDRO BRAR Unavailable Unavailable TRISTAN, RON P Unavailable Unavailable ISIDRO BRAR Unavailable Unavailable ISIDRO BRAR Unavailable Unavailable TRISTAN, RON P Unavailable Unavailable CURRAN, ARCADIO K Unavailable Unavailable CURRAN, ARCADIO K Unavailable Unavailable MUAKKASSA, FARID LIBERTY Unavailable Unavailabl e MUAKKASSA, FARID LIBERTY Unavailable Unavailabl e MIDHA, ARLINE Unavailable Unavailable JORGE KULKARNIHR Unavailable Unavai lable IMCA Unavailable Unavailable MUAKKASSA, FARID F Unavailable Unavailable JORGE KULKARNI Unavailable Unavailable MUAKKASSA, FARID F Unavailable Unavailable MIDHA, ARLINE Unavailable Unavailable JORGE KULKARNI Unavailable Unavailable IMCA Unavailable Unavailable Signs , Ge Bahena Unavailable [employer] Unavailable [employer] Unavailable Ingrid DIAZ, Edwina J Unavailable [facility], Fidelina Unavailable Deangelo Noel MD Primary Care Provider Darren Zarate DO Unavailable MD Deangelo Noel Primary Care Provider Dr. Keisha Mcneill Emergency Provider Dr. Deangelo Farah Admit Provider Dr. Deangelo Farah Other Provider RICK Peguero Attending Provider Unavail able [facility], Fidelina Unavailable Deangelo Noel MD Primary Care Provider Darren Zarate DO Unavailable [facility], F[place]ina Unavailable Deangelo Noel MD Primary Care Provider MD Deangelo Noel Primary Care Provider Dr. Keisha Mcneill Emergency Provider Dr. Deangelo Farah Admit Provider Dr. Deangelo Farah Other Provider RICK Peguero Attending Provider Unavail able [facility], Fidelina Unavailable Deangelo Noel MD Primary Care Provider Darren Zarate DO Unavailable MD Deangelo Noel Primary Care Provider Dr. Keisha Mcneill Emergency Provider Dr. Isidro Cruz Admit Provider Unavailable Dr. Isidro Cruz Attending Provider Unavailable Dr. Isidro Cruz Other Provider Unavailable Charles TEACHING ASSOCIATE.ANNA, Phillip Primary Care Provider MD Deangelo Mcmillan Primary Care Provider Un available Dr. Keisha Handy Emergency Provider Anthony, Dr. Ramos Admit Provider Unavailable Anthony, Dr. Ramos Attending Provider Unavailable Anthony, Dr. Ramos Other Provider Unavailable Marie, Dr. Culp Attending Provider Marie, Dr. Culp Referring Provider [phone] Sadie ORELLANA MD Deangelo Primary Care Provider Un available Anna Marie PIERRE, Dr. Valdes Emergency Provider [phone] Care Physician, No Primary Primary Care Provider Unavailable Anna Marie PIERRE, Dr. Valdes Attending Provider Klusty-Beverley DO, Dr. Harris Referring Provider Klusty-Beverley DO, Dr. Harris Emergency Provider Klusty-Beverley DO, Dr. Harris Attending Provider Elbert MIRELES, Dr. Elise Emergency Provider Rob MIRELES, Dr. Martinez Emergency Provider Elbert MIRELES, Dr. Elise Attending Provider Rob MIRELES, Dr. Martinez Attending Provider Beam VSC, Zebuletitia Attending Unavailable Care Physician, No Primary Primary Care Unava ilable Klusty-BeverleySteven Attending Unavailabl e Klusty-BeverleytSeven Referring Unavailabl e Care Physician, No Primary Primary Care Unava ilable Keisha Handy Attending Unavailable Care Physician, No Primary Primary Care Unava ilable Arik Boswell Attending Unavailable Care Physician, No Primary Primary Care Unava ilable Juan Rivas Attending Unavailable Care Physician, No Primary Primary Care Unava ilable Keisha Handy Attending Unavailable Care Physician, No Primary Primary Care Unava ilable Allergies Allergy Classification Reported Allergen(s) Allergy Type Date of Onset Reaction(s) Facility (1 source) Wheat bran; Translations: [WHEAT BRAN] Propensity to adverse reactions to drug (disorder) 8 [facility] Repository (1 source) GLUTEN MEAL; Translations: [GLUTEN MEAL] Propensity to adverse reactions to drug (disorder) 8 [facility] Repository (20 sources) Gluten; Translations: [GLUTEN] Propensity to adverse reactions to drug (disorder) 8 Diarrhea [facility] Repository (12 sources) Wheat preparation Drug Allergy 2 Nausea [facility] Medications Current Medications Medication Drug Class(es) Dates Sig (Normalized) Sig (Original) cyclobenzaprine hydrochloride 10 mg oral tablet (4 sources) Muscle Relaxant Start: 01-31-2022 take 10 mg by mouth twice daily Cyclobenzaprine Active 10 MG PO TWICE A DAY January 30, 2022 11:00pm doxycycline monohydrate 100 mg oral capsule (1 source) Tetracycline-cl ass Drug Start: 01-19-2022 take 100 mg by mouth twice daily Doxycycline Monohydrate Active 100 MG PO TWICE A DAY January 19, 2022 12:00am Insulin Glargine (Insulin Glargine 100 Unit/Ml Subcutaneous Solution) 100 unit/mL solution (2 sources) Start: 10-19-2024 Insulin Glargine (Insulin Glargine 100 Unit/Ml Subcutaneous Solution) 100 unit/mL solution Active 35 U SC AT BEDTIME October 19, 2024 12:00am Insulin Glargine (Lantus U-100 Insulin) 100 unit/mL solution (2 sources) Start: 10-19-2024 Insulin Glargine (Lantus U-100 Insulin) 100 unit/mL solution Active 35 U SC AT BEDTIME October 19, 2024 12:00am insulin lispro 100 unt/ml injectable solution (20 sources) Insulin Analogue Start: 10-19-2024 Insulin Lispro 100 unit/mL solution Active 25 U SC 3 TIMES DAILY WITH MEALS October 19, 2024 12:00am Start: 08-24-2022 insulin lispro (HUMALOG KWIKPEN) 100 unit/mL Indications: Uncontrolled type 1 diabetes mellitus with hypoglycemia without coma (HCC) Inject 30 Units subcutaneously three times daily before meals. Give along with SSI coverage 30 mL 1 08/24/2022 Active Start: 03-05-2021 inject 25 [IU] by thakur bcutaneous injection three times daily at mealtime Insulin Lispro 100 UNIT/ML insulin pen Active 25 U SQ 3 TIMES DAILY WITH MEALS March 05, 2021 2:09pm +SLIDING SCALE Start: 11-26-2020 End: 03-05-2021 inject 35 [IU] by subcutaneous injection three times daily at mealtime Insulin Lispro 100 UNIT/ML insulin pen Discontinued 35 U SQ 3 TIMES DAILY WITH MEALS 1 November 26, 2020 11:58am March 05, 2021 2:10pm Start: 12-22-2017 End: 12-23-2017 Insulin Lispro (Humalog Kwik pen Insulin) 100 unit/mL insulin pen Discontinued 0 SC THREE TIMES A DAY December 23, 2017 4:15pm December 23, 2017 4:40pm 10 units to 14 units at each meal and sliding scale up to 60 units daily SC TID Start: 12-10-2016 End: 03-12-2025 Insulin Lispro (Humalog Kwik pen Insulin) 100 UNIT/ML Ml Discontinued 30 U SQ 3 TIMES DAILY WITH MEALS January 18, 2019 12:00am November 26, 2020 11:58am Start: 12-10-2016 End: 03-12-2025 HUMALOG KWIKPEN 100 UNIT/ML SOPN Take 10-14 units at each meal and sliding scale up to 60 units daily INSULIN LISPRO [id number] Edwina Quintero NP Start: 12-08-2016 End: 05-17-2017 Insulin Lispro (Humalog Kwik pen Insulin) 100 UNIT/ML Insuln.Pen Discontinued 15 U SQ 3 TIMES DAILY WITH MEALS December 08, 2016 9:24am May 17, 2017 8:35am Start: 12-07-2016 End: 01-20-2017 Insulin Lispro (Humalog Kwik pen Serum or plasma calcium koby urement (mass/volume)Ordered By: Beverly Ca on 01-26-2025 Calcium [Mass/Vol] 8.7 mg/dL 7.6-11.0 [facility] Serum or plasma urea nitroge n measurement (mass/volume)Ordered By: Beverly Ca on 01-26-2025 Urea nitrogen [Mass/Vol] 18 mg/dL 4-19 [facility] Sodium levelOrdered By: Beverly Ca on 01-26-2025 Sodium [Moles/Vol] 133 mmol/L 133-145 [facility] TSH DL <= 0.005 mIU/L QnOrde red By: Beverly Ca on 01-26-2025 TSH Qn 2.430 uIU/mL 0.300-4.20 0 [facility] Thyroid Stim Hormone (TSH)on 01-26-2025 TSH 2.430 uIU/mL Normal 0.300-4.20 0 [facility] Comment on above: Performed By: #### L 300.8000, L501.9520, L505.5000, L100.0100, L500.2500 ####[facility] [address] [place] [id number] Troponin T.cardiac [Mass/vol ume] in Serum or Plasma by High sensitivity methodOrdered By: Beverly Ca on 01-26-2025 Troponin T.cardiac High sensitivity method [Mass/Vol] 15 ng/L <22 [facility] Comment on above: Delta: 8 on 10/19/24 -0024 Urine Drug Screen (VISTA)on 01-26-2025 AMPHETAMINES Negative Normal <1000 ng/mL [facility] Comment on above: Performed By: #### L 300.8000, L501.9520, L505.5000, L100.0100, L500.2500 ####[facility] [address] [place], [address] BARBITIURATES Negative Normal < 200 ng/mL [facility] Comment on above: Performed By: #### L 300.8000, L501.9520, L505.5000, L100.0100, L500.2500 ####[facility] [address] [place], [address] BENZODIAZIPINE Negative Normal < 200 ng/mL [facility] Comment on above: Performed By: #### L 300.8000, L501.9520, L505.5000, L100.0100, L500.2500 ####[facility] [address] [place], [address] BUP Ur Drug Scr Negative Normal < 200 ng/mL [facility] Comment on above: Performed By: #### L 300.8000, L501.9520, L505.5000, L100.0100, L500.2500 ####[facility] [address] [place] [address] COCAINE Negative Normal < 300 ng/mL [facility] Comment on above: Performed By: #### L 300.8000, L501.9520, L505.5000, L100.0100, L500.2500 ####[facility] [address] [place] [address] Fentanyl Negative Normal [facility] Comment on above: Performed By: #### L 300.8000, L501.9520, L505.5000, L100.0100, L500.2500 ####[facility] [address] [place] [address] METHADONE Negative Normal < 300 ng/mL [facility] Comment on above: Performed By: #### L 300.8000, L501.9520, L505.5000, L100.0100, L500.2500 ####[facility] [address] [place] [address] OPIATES Negative Normal < 300 ng/mL [facility] Comment on above: Performed By: #### L 300.8000, L501.9520, L505.5000, L100.0100, L500.2500 ####[facility] [address] [place] [address] OXYCODONE Negative Normal < 100 ng/mL [facility] Comment on above: Performed By: #### L 300.8000, L501.9520, L505.5000, L100.0100, L500.2500 ####[facility] [address] [place] [address] PCP Negative Normal < 25 ng/mL [facility] Comment on above: Performed By: #### L 300.8000, L501.9520, L505.5000, L100.0100, L500.2500 ####[facility] [address] [place], [address] THC Negative Normal < 50 ng/mL [facility] Comment on above: Performed By: #### L 300.8000, L501.9520, L505.5000, L100.0100, L500.2500 ####[facility] [address] [place], [address] Urine benzodiazepine levelOr dered By: Beverly Ca on 01-26-2025 Benzodiazepines Ql (U) Negative < 200 ng/mL [facility] Urine cocaine levelOrdered B y: Beverly Ca on 01-26-2025 Cocaine Ql (U) Negative < 300 ng/mL [facility] Urine vkjsg-8-pdkwancgpxljtu abinol (THC) measurementOrdered By: Beverly Ca on 01-26-2025 Cannabinoids Screen Ql (U) Negative < 50 ng/mL [facility] Urine phencyclidine (PCP) de tectionOrdered By: Beverly Ca on 01-26-2025 Phencyclidine Ql (U) Negative < 25 ng/mL [facility] Venous Blood Gason 5 Blood Gas Type JAIDEN Normal [facility] Comment on above: Performed By: #### L 9000.0810 ####[facility] [address] [place], [address] CO2 [Moles/Vol] 29 mmol/L Normal 23-33 [facility] Comment on above: Performed By: #### L 9000.0810 ####[facility] [address] [place], [address] HCO3 (Bld) [Moles/Vol] 27 mmol/L High 22-26 [facility] Comment on above: Performed By: #### L 9000.0810 ####[facility] [address] [place], [address] O2 Delivery Dev Not entered Normal [facility] Comment on above: Performed By: #### L 9000.0810 ####[facility] [address] [place], [address] SITE Not entered Normal [facility] Comment on above: Performed By: #### L 9000.0810 ####[facility] [address] [place], [address] VBG BE 2 mmol/L Normal -1.0-3.5 [facility] Comment on above: Performed By: #### L 9000.0810 ####[facility] [address] [place], [address] VBG pCO2 45.0 mmHg Normal 41-51 [facility] Comment on above: Performed By: #### L 9000.0810 ####[facility] [address] [place], [address] VBG pH 7.39 Normal 7.32-7.42 [facility] Comment on above: Performed By: #### L 9000.0810 ####[facility] [address] [place], [address] VBG PO2 51 mmHg High 25-40 [facility] Comment on above: Performed By: #### L 9000.0810 ####[facility] [address] [place], [address] VBG SO2 85 High 50-70 [facility] Comment on above: Performed By: #### L 9000.0810 ####[facility] [address] [place], [address] Venous blood base excess yaya surementOrdered By: Keisha Handy on 01-26-2025 Base excess Calc (BldV) [Moles/Vol] 2 mmol/L -1.0-3.5 [facility] Venous blood bicarbonate yaya surementOrdered By: Keisha Handy on 01-26-2025 HCO3 (Bld) [Moles/Vol] 27 mmol/L High 22-26 [facility] Venous blood oxygen saturati on measurementOrdered By: Keisha Handy on 01-26-2025 Oxygen saturation in Blood 85 % High 50-70 [facility] Venous blood pH measurementO rdered By: Keisha Handy on 01-26-2025 pH (BldV) 7.39 [pH] 7.32-7.42 [facility] Venous blood partial pressur e of carbon dioxide measurementOrdered By: Keisha Handy on 01-26-2025 CO2 (BldV) [Partial pressure] 45.0 mm[Hg] 41-51 [facility] Venous blood partial pressur e of oxygen measurementOrdered By: Keisha Handy on 01-26-2025 Oxygen (BldV) [Partial pressure] 51 mm[Hg] High 25-40 [facility] White blood cell (WBC) count Ordered By: Beverly Ca on 01-26-2025 WBC (Bld) [#/Vol] 10.4 10*3/uL 4.4-11.0 [facility] Anion gap in Serum or Plasma Ordered By: Juan Rivas on 12-14-2024 Anion gap [Moles/Vol] 9 mmol/L 12-21 [facility] BUN/creatinine ratioOrdered By: Juan Rivas on 12-14-2024 Urea nitrogen/Creatinine [Mass ratio] 16.2 mg/mg 05-28 [facility] Basic Metabolic Profile (BMP )on 12-14-2024 BUN/CRE 16.2 RATIO Normal 05-28 [facility] Comment on above: Performed By: #### L 500.2500 #### [facility] [address] [place], [address] Calcium [Mass/Vol] 7.8 mg/dL Normal 7.6-11.0 [facility] Comment on above: Performed By: #### L 500.2500 #### [facility] [address] [place], [address] Chloride [Moles/Vol] 103 mmol/L Normal 98-108 [facility] Comment on above: Performed By: #### L 500.2500 #### [facility] [address] [place], [address] CO2 [Moles/Vol] 24.0 mmol/L Normal 21.0-32.0 [facility] Comment on above: Performed By: #### L 500.2500 #### [facility] [address] [place], [address] Creatinine [Mass/Vol] 0.64 mg/dL Low 0.70-1.20 [facility] Comment on above: Performed By: #### L 500.2500 #### [facility] [address] [place], [address] ECRCL 126.32 ml/min Normal 50-250 [facility] Comment on above: Performed By: #### L 500.2500 #### [facility] [address] [place], [address] GAP 9 Normal 5-15 [facility] Comment on above: Performed By: #### L 500.2500 #### [facility] [address] [place], [address] GFR/1.73 sq M.predicted among non-blacks MDRD (S/P/Bld) [Vol rate/Area] 133 mL/min/{1.73_m2} Normal >60 [facility] Comment on above: Result Comment: mL/m in/1.73m2 CKD-EPI Creatinine Equation (2020) Performed By: #### L 500.2500 #### [facility] [address] [place], [address] Glucose [Mass/Vol] 275 mg/dL High 70-99 [facility] Comment on above: Performed By: #### L 500.2500 #### [facility] [address] [place], [address] Potassium [Moles/Vol] 3.6 mmol/L Normal 3.3-5.1 [facility] Comment on above: Performed By: #### L 500.2500 #### [facility] [address] [place], [address] Sodium [Moles/Vol] 136 mmol/L Normal 133-145 [facility] Comment on above: Performed By: #### L 500.2500 #### [facility] [address] [place], [address] Urea nitrogen [Mass/Vol] 10 mg/dL Normal 4-19 [facility] Comment on above: Performed By: #### L 500.2500 #### [facility] [address] [place], [address] Bedside Glucoseon 12-14-2024 FINGERSTICK GLU 286 mg/dL High 74-106 [facility] Comment on above: Result Comment: TEJAL GEMENT OF PATIENT CARE PER NURSING PROTOCOL Performed By: #### L 501.6901 #### [facility] [address] [place], [address] FINGERSTICK GLU 337 mg/dL High -106 [facility] Comment on above: Result Comment: TEJAL GEMENT OF PATIENT CARE PER NURSING PROTOCOL Performed By: #### L 501.080 #### [facility] [address] [place], [address] FINGERSTICK GLU 262 mg/dL High 74-106 [facility] Comment on above: Result Comment: TEJAL GEMENT OF PATIENT CARE PER NURSING PROTOCOL Performed By: #### L 501.080 ####[facility] [address] [place], [address] FINGERSTICK GLU 433 mg/dL High 74-106 [facility] Comment on above: Result Comment: TEJAL GEMENT OF PATIENT CARE PER NURSING PROTOCOL Performed By: #### L 501.080 ####[facility] [address] [place], [address] Carbon dioxide, total [Moles /volume] in Central venous bloodOrdered By: Juan Rivas on 12-14-2024 CO2 [Moles/Vol] 24.0 mmol/L 21.0-32.0 [facility] Chloride assayOrdered By: Cesar Rivas on 12-14-2024 Chloride [Moles/Vol] 103 mmol/L 98-108 [facility] Glomerular filtration rate ( GFR) estimation/1.73 sq m using serum, plasma, or whole bOrdered By: Juan Rivas on 12-14-2024 GFR/1.73 sq M.predicted among non-blacks MDRD (S/P/Bld) [Vol rate/Area] 133 mL/min/{1.73_m2} >60 [facility] Comment on above: mL/min/1.73m2 CKD-EP I Creatinine Equation (2020) [facility] deOrdered By: Juan Rivas on 12-14-2024 Glucose [Mass/Vol] 286 mg/dL High 74-106 [facility] Comment on above: MANAGEMENT OF PATIEN T CARE PER NURSING PROTOCOL Potassium measurement (mass/ volume)Ordered By: Juan Rivas on 12-14-2024 Potassium (Unsp spec) [Mass/Vol] 3.6 mmol/L 3.3-5.1 [facility] Serum creatinine measurement (mass/volume)Ordered By: Juan Rivas on 12-14-2024 Creatinine [Mass/Vol] 0.64 mg/dL Low 0.70-1.20 [facility] Serum glucose measurement (m ass/volume)Ordered By: Juan Rivas on 12-14-2024 Glucose [Mass/Vol] 275 mg/dL High 70-99 [facility] Serum or plasma calcium koby urement (mass/volume)Ordered By: Juan Rivas on 12-14-2024 Calcium [Mass/Vol] 7.8 mg/dL 7.6-11.0 [facility] Serum or plasma urea nitroge n measurement (mass/volume)Ordered By: Juan Rivas on 12-14-2024 Urea nitrogen [Mass/Vol] 10 mg/dL 4-19 [facility] Sodium levelOrdered By: Sav Rivas on 12-14-2024 Sodium [Moles/Vol] 136 mmol/L 133-145 [facility] 12 Lead EKGon 12-13-2024 12 Lead EKG [facility] [address] [place] [address] 12 Lead EKG 12/13/240 MR#: [id number] Acct: [id number] Name: UNA COSBY Rep #: [id number] : 1995 29 From: Doyle Morales MD Attending Dr: Status: DEP ER Ordering Dr: Juan Rivas MD Date: 12/13/24 Location: ED Sex: M C Admitted: Test Reason : Blood Pressure : */* mmHG Vent. Rate : 103 BPM Atrial Rate : 103 BPM P-R Int : 152 ms QRS Dur : 82 ms QT Int : 332 ms P-R-T Axes : 70 69 62 degrees QTcB Int : 434 ms Sinus tachycardia Otherwise normal ECG Confirmed by Doyle Morales ([id number]), technical writer and editor DOMINIC KEENE ([id number]) on 12/15/2024 12:14:41 PM Referred By: Confirmed By: Doyle Morales 12/15/24 1214 Date Doyle Morales MD CC: Dr. Juan Rivas MD; No Primary Care Physician Signed Normal [facility] Absolute lymphocyte countOrd ered By: Juan Rivas on 12-13-2024 Lymphocytes Auto (Unsp spec) [#/Vol] 3.83 10*3/uL 0.83-4.51 [facility] Absolute neutrophil countOrd ered By: Juan Rivas on 12-13-2024 Neutrophils (Bld) [#/Vol] 6.1 10*3/uL 2.0-7.7 [facility] Automated lymphocyte count a s percentage of total leukocytesOrdered By: Juan Rivas on 12-13-2024 Lymphocytes/100 WBC Auto (Unsp spec) 33.9 % - [facility] Basic Metabolic Profile (BMP )on 12-13-2024 BUN/CRE 16.3 RATIO Normal 10- [facility] Comment on above: Performed By: #### L 501.6901 #### [facility] [address] [place], [address] Calcium [Mass/Vol] 9.0 mg/dL Normal 7.6-11.0 [facility] Comment on above: Performed By: #### L 501.6901 #### [facility] [address] [place], [address] Chloride [Moles/Vol] 90 mmol/L Low 98-108 [facility] Comment on above: Performed By: #### L 501.6901 #### [facility] [address] [place], [address] CO2 [Moles/Vol] 27.2 mmol/L Normal 21.0-32.0 [facility] Comment on above: Performed By: #### L [id number] #### [facility] [address] [place], [address] Creatinine [Mass/Vol] 0.84 mg/dL Normal 0.70-1.20 [facility] Comment on above: Performed By: #### L 501.6901 #### [facility] [address] [place], [address] ECRCL 96.24 ml/min Normal 50-250 [facility] Comment on above: Performed By: #### L 501.6901 #### [facility] [address] [place], [address] GAP 12 Normal 5-15 [facility] Comment on above: Performed By: #### L 501.6901 #### [facility] [address] [place], [address] GFR/1.73 sq M.predicted among non-blacks MDRD (S/P/Bld) [Vol rate/Area] 123 mL/min/{1.73_m2} Normal >60 [facility] Comment on above: Result Comment: mL/m in/1.73m2 CKD-EPI Creatinine Equation (2020) Performed By: #### L 501.6901 #### [facility] [address] [place], [address] Glucose [Mass/Vol] 520 mg/dL Invalid Interpretation Code 70-99 [facility] Comment on above: Result Comment: Erynt ical Result(s) Called at: 2248 by: WILLIAM HERRERA TO GE TENNENT??Results read back by same. Performed By: #### L 501.6901 #### [facility] [address] [place], [address] Potassium [Moles/Vol] 5.3 mmol/L High 3.3-5.1 [facility] Comment on above: Performed By: #### L 501.6901 #### [facility] [address] [place], [address] Sodium [Moles/Vol] 129 mmol/L Low 133-145 [facility] Comment on above: Performed By: #### L 501.6901 #### [facility] [address] [place], [address] Urea nitrogen [Mass/Vol] 14 mg/dL Normal 4-19 [facility] Comment on above: Performed By: #### L 501.6901 #### [facility] [address] [place], [address] Basophil percentageOrdered B y: Juan Rivas on 12-13-2024 Basophils/100 WBC (Bld) 0.6 % 0-1 [facility] Bedside Glucoseon 12-13-2024 FINGERSTICK GLU 490 mg/dL Invalid Interpretation Code 74-106 [facility] Comment on above: Result Comment: Dr Erica egan Followed MANAGEMENT OF PATIENT CARE PER NURSING PROTOCOL Performed By: #### L 500.2500 #### [facility] [address] [place], [address] Beta-Hydroxbytyrateon 2024 BETA-HYDROXYBUT 1.7 mmol/L Normal 0.0-0.3 [facility] Comment on above: Performed By: #### L 501.6901 #### [facility] [address] [place], [address] Beta-hydroxybutyrateOrdered By: Juan Rivas on 12-13-2024 Beta hydroxybutyrate [Mass/Vol] 1.7 mmol/L 0.0-0.3 [facility] Bilirubin Test strip Ql (U)O rdered By: Juan Rivas on 12-13-2024 Bilirubin Ql (U) Negative Negative [facility] CBC W/Diff, Automatedon Absolute Lymph 3.83 X10 3/uL Normal 0.83-4.51 [facility] Comment on above: Performed By: #### L 100.0100 ####[facility] [address] [place], [address] Absolute Neut 6.1 X10 3/uL Normal 2.0-7.7 [facility] Comment on above: Performed By: #### L 100.0100 ####[facility] [address] [place], [address] Basophils/100 WBC (Bld) 0.6 % Normal 0-1 [facility] Comment on above: Performed By: #### L 100.0100 ####[facility] [address] [place], [address] Eosinophils/100 WBC (Bld) 3.3 % Normal 0-5 [facility] Comment on above: Performed By: #### L 100.0100 ####[facility] [address] [place], [address] Erythrocyte distribution width (RBC) [Ratio] 15.2 % High 11.6-14.6 [facility] Comment on above: Performed By: #### L 100.0100 ####[facility] [address] [place], [address] Hematocrit (Bld) [Volume fraction] 43.1 % Normal 40-54 [facility] Comment on above: Performed By: #### L 100.0100 ####[facility] [address] [place], [address] Hemoglobin (Bld) [Mass/Vol] 13.9 g/dL Normal 13.0-16.5 [facility] Comment on above: Performed By: #### L 100.0100 ####[facility] [address] [place], [address] IG% 0.300 Normal 0.0-0.9 [facility] Comment on above: Result Comment: IG% - Immature Granulocytes (promyelocytes, myelocytes and metamyelocytes) > 1% indicates that a LEFT SHIFT is Present. Performed By: #### L 100.0100 ####[facility] [address] [place], [address] Lymphocytes/100 WBC (Bld) 33.9 % Normal 19-41 [facility] Comment on above: Performed By: #### L 100.0100 ####[facility] [address] [place], [address] MCH (RBC) [Entitic mass] 23.4 pg Low 27.0-32.0 [facility] Comment on above: Performed By: #### L 100.0100 ####[facility] [address] [place], [address] MCHC (RBC) [Mass/Vol] 32.3 g/dL Normal 32-36 [facility] Comment on above: Performed By: #### L 100.0100 ####[facility] [address] [place], [address] MCV (RBC) [Entitic vol] 72.7 fL Low 80-94 [facility] Comment on above: Performed By: #### L 100.0100 ####[facility] [address] [place], [address] Monocytes/100 WBC (Bld) 8.1 % Normal 0-10 [facility] Comment on above: Performed By: #### L 100.0100 ####[facility] [address] [place], [address] Neutrophils/100 WBC (Bld) 53.8 % Normal 47-70 [facility] Comment on above: Performed By: #### L 100.0100 ####[facility] [address] [place], [address] Nucleated RBC (Bld) [#/Vol] 0 10*3/uL Normal 0-5 [facility] Comment on above: Performed By: #### L 100.0100 ####[facility] [address] [place], [address] Platelet mean volume (Bld) [Entitic vol] 10.5 fL Normal 6.2-12.0 [facility] Comment on above: Performed By: #### L 100.0100 ####[facility] [address] [place], [address] Platelets (Bld) [#/Vol] 449 10*3/uL Normal 150-450 [facility] Comment on above: Performed By: #### L 100.0100 ####[facility] [address] [place], [address] RBC (Bld) [#/Vol] 5.93 10*6/uL Normal 4.6-6.2 [facility] Comment on above: Performed By: #### L 100.0100 ####[facility] [address] [place], [address] RDW SD 38.6 fl Normal 35.1-43.9 [facility] Comment on above: Performed By: #### L 100.0100 ####[facility] [address] [place], [address] WBC (Bld) [#/Vol] 11.3 10*3/uL High 4.4-11.0 [facility] Comment on above: Performed By: #### L 100.0100 ####[facility] [address] [place], [address] CO2 (BldV) [Moles/Vol]Ordere d By: Juan Rivas on 12-13-2024 CO2 [Moles/Vol] 28 mmol/L 23-33 [facility] Emergency Department Summary on 12-13-2024 Emergency Department Summary [facility] Medical Records Department [address] [place] [address] Emergency Department Summary 12/13/24 MR#: [id number] Acct: [id number] Name: UNA COSBY Rep #: [id number] : 1995 29 From: Juan Rivas MD PCP: Care Physician,No Primary Status:REG ER Location: ED HPI History of Present Illness Chief Complaint: Nausea/Vomiting Informant: patient Narrative Narrative: 29-year-old male seen here yesterday for shoulder pain and prescribed Naprosyn he states soon after taking the first pill last night he started vomiting. Today he has been vomiting all day, and subsequently started feeling orthostatic when he stood up, feeling lightheaded. No syncopal episodes. No hematemesis. No fevers, chills, abdominal pain, diarrhea. He denies feeling short of breath. He is a type I diabetic, he does not use a pump but injects his own. States he did give himself some insulin around 8 hours ago when his blood sugar was somewhere in the 200s he has not checked it since. Does not feel polyuria/polydipsia since then. States he cannot keep anything down all day. [facility] Medical History Learning difficulty due to cognitive limitations H/O fracture of skull Anxiety Depression Septic shock Type 1 diabetes mellitus Type I diabetes mellitus, uncontrolled Home Medications ???Medication ???Instructions ???Recorded ???Last Taken ???Type insulin lispro 100 unit/mL 25 unit SQ TIDCM short acting 02/0703/04/21 History subcutaneous pen insulin insulin glargine 100 unit/mL (3 50 unit subcut QPM diabetes Unknown History mL) subcutaneous pen (Lantus Solostar U-100 Insulin) insulin glargine 100 unit/mL 35 unit subcut QHS 10/19/24 Unknow n History subcutaneous solution (Lantus U-100 Insulin) insulin lispro 100 unit/mL 25 unit subcut TIDCM 10/19/24 Unkn own History subcutaneous solution insulin syringe-needle U-100 0.5 10/19/24 Unknown History mL 31 gauge x /16" (TRUEplus Insulin) ondansetron 8 mg disintegrating 8 mg PO Q8H PRN nausea and 5 Unknown Rx tablet vomiting #12 tabs Allergy/AdvReac Type Severity Reaction Status Date / Time No Known Allergies Allergy Verified 12/13/24 21:14 Family History Father Diabetes Surgical History H/O skin graft Social History household members: family Smoking Status: Current some day smoker tobacco type: cigarettes, e-cigarettes and smokeless tobacco Smokeless tobacco user: chewing tobacco second hand exposure: Yes alcohol intake: never substance use type: does not use ROS ROS ED Constitutional Constitutional ED: Denies chills or fever(s) Eyes Eyes: Denies change in vision or diplopia ENT ENT ED: Denies rhinorrhea or sore throat Cardiovascular Cardiovascular: Reports lightheadedness and orthostatic symptoms; Denies chest pain, palpitations or syncope Respiratory/Chest Respiratory/Chest: Denies cough or dyspnea Gastrointestinal Gastrointestinal: Reports nausea and vomiting; Denies abdominal pain or diarrhea Genitourinary Genitourinary ED: Denies dysuria or hematuria Musculoskeletal Musculoskeletal: Reports other Details: left shoulder pain x months, "I just decided to get it checked out yesterday." ; Denies back pain or neck pain Integumentary Denies abscess or rash Neurologic Neurologic: Denies headache(s), paresthesias or weakness Psychiatric Psychiatric: Denies anxiety or suicidal thoughts Endocrine Endocrinology: Denies polydipsia or polyuria EXAM Physical Exam Const Vital Signs: 12/13/24 21:12 12/13/24 23:12 12/14/24 01:00 Temperature 98.4 F Temperature Source Temporal Pulse Rate 110 H 95 100 Respiratory Rate 18 16 16 Blood Pressure 106/78 106/74 96/63 Blood Pressure Mean 87 84 74 Pulse Ox 99 99 97 Oxygen Delivery Method Room Air Room Air Room Air Positive well nourished and well developed Constitutional Narrative: well-appearing General Appearance ED: well developed and NAD HEENT Reports moist mucous membranes normocephalic and atraumatic Eyes PERRL and EOMs intact bilaterally Neck full ROM and supple Resp normal respiratory effort and clear to auscultation bilaterally Cardio regular rate, regular rhythm and no murmurs Rate: tachycardic GI non-tender and non-distended Auscultation: normoactive bowel sounds Palpation: soft Back/Spine no CVA tenderness General Back: other FROM Extremity normal to inspection General Extremety ED: Negative for edema, pulses abnormal or tenderness General Extremity: Negative for edema o (more content not included)... Normal [facility] Eosinophil percentageOrdered By: Juan Rivas on 12-13-2024 Eosinophils/100 WBC (Bld) 3.3 % 0-5 [facility] Erythrocyte distribution wid th ratioOrdered By: Juan Rivas on 12-13-2024 Erythrocyte distribution width (RBC) [Ratio] 15.2 % High 11.6-14.6 [facility] Erythrocyte distribution wid th standard deviationOrdered By: Juan Rivas on 12-13-2024 Erythrocyte distribution width (RBC) [Ratio] 38.6 fl 35.1-43.9 [facility] Hematocrit Auto (Bld) [Volum e fraction]Ordered By: Juan Rivas on 12-13-2024 Hematocrit (Bld) [Volume fraction] 43.1 % 40-54 [facility] Hemoglobin measurementOrdere d By: Juan Rivas on 12-13-2024 Hemoglobin (Bld) [Mass/Vol] 13.9 g/dL 13.0-16.5 [facility] Immature granulocytes/100 WB C Auto (Bld)Ordered By: Juan Rivas on 12-13-2024 Immature granulocytes/100 WBC (Bld) 0.300 % 0.0-0.9 [facility] Comment on above: IG% - Immature Granu locytes (promyelocytes, myelocytes and metamyelocytes) > 1% indicates that a LEFT SHIFT is Present. Ketones Test strip Ql (U)Ord ered By: Juan Rivas on 12-13-2024 Ketones Ql (U) 5 mg/dl High Negative [facility] MCV (mean corpuscular volume ) determinationOrdered By: Juan Rivas on 12-13-2024 MCV (RBC) [Entitic vol] 72.7 fL Low 80-94 [facility] Mean corpuscular hemoglobin (MCH) determinationOrdered By: Juan Rivas on 12-13-2024 MCH (RBC) [Entitic mass] 23.4 pg Low 27.0-32.0 [facility] Mean corpuscular hemoglobin concentration (MCHC) determinationOrdered By: Juan Rivas on 12-13-2024 MCHC (RBC) [Mass/Vol] 32.3 g/dL 32-36 [facility] Mean platelet volume determi nationOrdered By: Juan Rivas on 12-13-2024 Platelet mean volume (Bld) [Entitic vol] 10.5 fL 6.2-12.0 [facility] Microscopic analysis of urin e for red blood cells (RBC)Ordered By: Juan Rivas on 12-13-2024 Microscopic analysis of urine for red blood cells (RBC) 0 SEEN /hpf 0-5 [facility] Monocyte percentageOrdered B y: Juan Rivas on 12-13-2024 Monocytes/100 WBC (Bld) 8.1 % 0-10 [facility] Mucus LM Ql (Urine sed)Order ed By: Juan Rivas on 12-13-2024 Mucus Ql (Urine sed) 0 SEEN /hpf [facility] Neutrophil percentageOrdered By: Juan Rivas on 12-13-2024 Neutrophils/100 WBC (Bld) 53.8 % 47-70 [facility] Nitrite Test strip Ql (U)Ord ered By: Juan Rivas on 12-13-2024 Nitrite Ql (U) Negative Negative [facility] No Panel InformationOrdered By: Juan Rivas on 12-13-2024 Blood Gas Sample Site Not entered [facility] Blood Gas Specimen Type JAIDEN [facility] Oxygen Delivery Device Not entered [facility] Nucleated red blood cell per centageOrdered By: Juan Rivas on 12-13-2024 Nucleated RBC/100 WBC (Bld) [Ratio] 0 % 0-5 [facility] Platelet countOrdered By: Cesar Rivas on 12-13-2024 Platelets (Bld) [#/Vol] 449 10*3/uL 150-450 [facility] Protein Test strip Ql (U)Ord ered By: Juan Rivas on 12-13-2024 Protein Ql (U) 30 mg/dl High Negative [facility] RBC Auto (Bld) [#/Vol]Ordere d By: Juan Rivas on 12-13-2024 RBC (Bld) [#/Vol] 5.93 10*6/uL 4.6-6.2 [facility] Squamous epithelial cells de tection in urine sediment by light microscopyOrdered By: Juan Rivas on 12-13-2024 Epithelial cells.squamous LM Ql (Urine sed) 0 SEEN /hpf 0-5 [facility] Urinalysis, Completeon 12-13 BILIRUBIN URINE Negative Normal Negative [facility] Comment on above: Order Comment: MANN CTOR TO SPECIFY Performed By: #### L 501.6901 #### [facility] [address] [place], [place], [id number] Clarity (U) Clear Normal Clear [facility] Comment on above: Order Comment: MANN CTOR TO SPECIFY Performed By: #### L 501.6901 #### [facility] [address] [place], [address] Color (U) Straw Normal Yellow [facility] Comment on above: Order Comment: MANN CTOR TO SPECIFY Performed By: #### L 501.6901 #### [facility] [address] [place], [address] GLUCOSE, UR 1000 mg/dl Abnormal Normal [facility] Comment on above: Order Comment: MANN CTOR TO SPECIFY Performed By: #### L 501.6901 #### [facility] [address] [place], [address] KETONE UR 5 mg/dl Abnormal Negative [facility] Comment on above: Order Comment: COLLE CTOR TO SPECIFY Performed By: #### L 501.6901 #### [facility] [address] [place], [address] LEUK ESTERASE Negative Normal Negative [facility] Comment on above: Order Comment: COLLE CTOR TO SPECIFY Performed By: #### L .6901 #### [facility] [address] [place], [address] Nitrite Ql (U) Negative Normal Negative [facility] Comment on above: Order Comment: MANN CTOR TO SPECIFY Performed By: #### L .6901 #### [facility] [address] [place], [address] OCCULT BLOOD-UR 25 /ul Abnormal Negative [facility] Comment on above: Order Comment: MANN CTOR TO SPECIFY Performed By: #### L 6901 #### [facility] [address] [place], [address] pH UR 7.0 Normal 5.0 - 8.0 [facility] Comment on above: Order Comment: COLLE CTOR TO SPECIFY Performed By: #### L .6901 #### [facility] [address] [place], [address] PROT DIPSTX 30 mg/dl Abnormal Negative [facility] Comment on above: Order Comment: MANN CTOR TO SPECIFY Performed By: #### L 6901 #### [facility] [address] [place], [address] SP.GR. DIPSTX 1.005 Normal 1.002-1.03 0 [facility] Comment on above: Order Comment: COLLE CTOR TO SPECIFY Performed By: #### L 6909 #### [facility] [address] [place], [address] UROBILI Normal Normal Normal [facility] Comment on above: Order Comment: MANN CTOR TO SPECIFY Performed By: #### L 501.6901 #### [facility] [address] [place], [address] BACTERIA 0 SEEN Normal None Seen [facility] Comment on above: Order Comment: MANN CTOR TO SPECIFY Performed By: #### L 501.6901 #### [facility] [address] [place], [address] EPI,SQUAMOUS 0 SEEN Normal 0-5 [facility] Comment on above: Order Comment: MANN CTOR TO SPECIFY Performed By: #### L 501.6901 #### [facility] [address] [place], [address] Mucus Ql (Urine sed) [address] [facility] Comment on above: Order Comment: MANN CTOR TO SPECIFY Performed By: #### L 501.6901 #### [facility] [address] [place], [address] RBC 0 SEEN Normal [address] Comment on above: Order Comment: MANN CTOR TO SPECIFY Performed By: #### L 501.6901 #### [facility] [address] [place], [address] WBC 0 SEEN Normal [address] [place] [address] Comment on above: Order Comment: MANN CTOR TO SPECIFY Performed By: #### L 501.6901 #### [facility] [address] [place], [address] Urine clarityOrdered By: Cherie Rivas on 12-13-2024 Clarity (U) Clear Clear [facility] Urine color determinationOrd ered By: Juan Rivas on 12-13-2024 Color (U) Straw Yellow [facility] Urine glucose detectionOrder ed By: Juan Rivas on 12-13-2024 Glucose Ql (U) 1000 mg/dl High Normal [facility] Urine leukocyte esterase det ection by dipstickOrdered By: Juan Rivas on 12-13-2024 Leukocyte esterase Test strip Ql (U) Negative Negative [facility] Urine pHOrdered By: Juan Rivas on 12-13-2024 pH (U) 7.0 [pH] 5.0 - 8.0 [facility] Urine sediment bacteria coun t by microscopy (number/high power field)Ordered By: Juan Rivas on 12-13-2024 Bacteria LM.HPF (Urine sed) [#/Area] 0 /[HPF] None Seen [facility] Urine specific gravity measu rementOrdered By: Juan Rivas on 12-13-2024 Specific gravity (U) [Rel density] 1.005 1.002-1.03 0 [facility] Urine urobilinogen measureme ntOrdered By: Juan Rivas on 12-13-2024 Urobilinogen Ql (U) Normal mg/dl Normal [facility] Venous Blood Gason 5 Blood Gas Type JAIDEN Normal [facility] Comment on above: Performed By: #### L 9000.0810 #### [facility] [address] [place], [place], [id number] CO2 [Moles/Vol] 28 mmol/L Normal 23-33 [facility] Comment on above: Performed By: #### L 9000.0810 #### [facility] [address] [place], [place], [address] FI02 21.0 Normal [facility] Comment on above: Performed By: #### L 9000.0810 #### [facility] [address] [place], [address] HCO3 (Bld) [Moles/Vol] 27 mmol/L High 22-26 [facility] Comment on above: Performed By: #### L 9000.0810 #### [facility] [address] [place], [address] O2 Delivery Dev Not entered Normal [facility] Comment on above: Performed By: #### L 9000.0810 #### [facility] [address] [place], [address] SITE Not entered Normal [facility] Comment on above: Performed By: #### L 9000.0810 #### [facility] [address] [place] [place], [address] VBG BE 4 mmol/L High -1.0-3.5 [facility] Comment on above: Performed By: #### L 9000.0810 #### [facility] [address] [place], [address] VBG pCO2 34.4 mmHg Low 41-51 [facility] Comment on above: Performed By: #### L 9000.0810 #### [facility] [address] [place], [address] VBG pH 7.50 High 7.32-7.42 [facility] Comment on above: Performed By: #### L 9000.0810 #### [facility] [address] [place], [address] VBG PO2 76 mmHg High 25-40 [facility] Comment on above: Performed By: #### L 9000.0810 #### [facility] [address] [place], [address] VBG SO2 96 High 50-70 [facility] Comment on above: Performed By: #### L 9000.0810 #### [facility] [address] [place], [address] Venous blood base excess yaya surementOrdered By: Juan Rivas on 12-13-2024 Base excess Calc (BldV) [Moles/Vol] 4 mmol/L High -1.0-3.5 [facility] Venous blood bicarbonate yaya surementOrdered By: Juan Rivas on 12-13-2024 HCO3 (Bld) [Moles/Vol] 27 mmol/L High 22-26 [facility] Venous blood oxygen saturati on measurementOrdered By: Juan Rivas on 12-13-2024 Oxygen saturation in Blood 96 % High 50-70 [facility] Venous blood pH measurementO rdered By: Juan Rivas on 12-13-2024 pH (BldV) 7.50 [pH] High 7.32-7.42 [facility] Venous blood partial pressur e of carbon dioxide measurementOrdered By: Juan Rivas on 12-13-2024 CO2 (BldV) [Partial pressure] 34.4 mm[Hg] Low 41-51 [facility] Venous blood partial pressur e of oxygen measurementOrdered By: Juan Rivas on 12-13-2024 Oxygen (BldV) [Partial pressure] 76 mm[Hg] High 25-40 [facility] White blood cell (WBC) count Ordered By: Juan Rivas on 12-13-2024 WBC (Bld) [#/Vol] 11.3 10*3/uL High 4.4-11.0 [facility] White blood cell countOrdere d By: Juan Rivas on 12-13-2024 White blood cell count 0 SEEN /hpf 0-5 [facility] Emergency Department Summary on 12-12-2024 Emergency Department Summary [facility] Medical Records Department [address] [place] [address] Emergency Department Summary 12/12/24 MR#: [id number] Acct: [id number] Name: UNA COSBY Rep #: [id number] : 1995 29 From: Arik Boswell MD PCP: Care Physician,No Primary Status:REG ER Location: ED HPI History of Present Illness Chief Complaint: Upper Extremity Injury Detail of Chief Complaint: Left shoulder pain Informant: patient Occured/Mechanism Comment: Patient did lifting a couple of days ago. No direct trauma Onset/Context/Timing Onset: Days Context: Sudden Onset Timing: Continuous Quality of Pain: Dull Location: Posterior left shoulder region Current Severity: Mild Maximum Severity: Moderate Worsened by: Movement Relieved by: Abduction and internal rotation Associated Symptoms Associated Symptoms: Negative for Parasthesia, Weakness or Loss of Funtion Narrative Narrative: Patient is a 29-year-old ebutq-ipza-gpsqoogo male who presents with atraumatic left shoulder pain. He has no prior history of trauma to the shoulder. He was not in significant car accident has third-degree bray. He does have history of type 1 diabetes. Renal function normal as of November 11, 2024. He has no history of peptic ulcer disease. He has no history of hypertension. Patient denies history of rotator cuff injury or impingement syndrome. Patient denies cardiac or respiratory symptoms. Patient denies paresthesia, anesthesia or motor weakness. Abduction increases his pain. Prior similar symptoms: No Recent Illness/Hospitalization : No PFSH PFS Medical History Learning difficulty due to cognitive limitations H/O fracture of skull Anxiety Depression Septic shock Type 1 diabetes mellitus Type I diabetes mellitus, uncontrolled Home Medications ???Medication ???Instructions ???Recorded ???Last Taken ???Type insulin lispro 100 unit/mL 25 unit SQ TIDCM short acting 02/0703/04/21 History subcutaneous pen insulin insulin glargine 100 unit/mL (3 50 unit subcut QPM diabetes Unknown History mL) subcutaneous pen (Lantus Solostar U-100 Insulin) insulin glargine 100 unit/mL 35 unit subcut QHS 10/19/24 Unknow n History subcutaneous solution (Lantus U-100 Insulin) insulin lispro 100 unit/mL 25 unit subcut TIDCM 10/19/24 Unkn own History subcutaneous solution insulin syringe-needle U-100 0.5 10/19/24 Unknown History mL 31 gauge x 5/16" (TRUEplus Insulin) ondansetron 4 mg disintegrating 4 mg PO Q8H PRN PRN Nausea #10 tab s 11/11/24 Unknown Rx tablet naproxen 500 mg tablet 500 mg PO BID #10 tabs 12/12/24 Un known Rx Allergy/AdvReac Type Severity Reaction Status Date / Time No Known Allergies Allergy Verified 12/12/24 12:35 Family History Father Diabetes Surgical History H/O skin graft Social History household members: family Smoking Status: Current some day smoker tobacco type: cigarettes, e-cigarettes and smokeless tobacco Smokeless tobacco user: chewing tobacco second hand exposure: Yes alcohol intake: never substance use type: does not use ROS ROS ED Constitutional Constitutional ED: Denies chills, fever(s), subjective or sweats Cardiovascular Cardiovascular: Denies chest pain Respiratory/Chest Respiratory/Chest: Denies cough, dyspnea or dyspnea on exertion Gastrointestinal Gastrointestinal: Denies nausea or vomiting Musculoskeletal Musculoskeletal: Denies myalgias or neck pain Integumentary Denies rash Neurologic Neurologic: Denies paresthesias or weakness Hematologic/Lymphatic Hematologic/Lymphatic: Denies easy bleeding or easy bruising EXAM Physical Exam Const Vital Signs: 12/12/24 12:36 Temperature 97 F L Temperature Source Temporal Pulse Rate 116 H Respiratory Rate 18 Blood Pressure 126/82 H Blood Pressure Mean 96 Pulse Ox 100 Oxygen Delivery Method Room Air Positive well nourished and well developed General Appearance ED: well developed and NAD HEENT Reports moist mucous membranes HEENT Narrative: Head is atraumatic normocephalic. Ears normal. Nares patent Eyes PERRL and EOMs intact bilaterally Neck full ROM General: Negative for tenderness Resp normal respiratory effort and clear to auscultation bilaterally Cardio regular rate, regular rhythm, S1 normal heart sound, S2 normal heart sound and no murmurs Extremity normal to inspection Extremity Narrative: There is pain outpatient over the supraspinatus muscle. Abduction past to 100 degrees causes him increased pain. Axillary, median, radial and ulnar function intact (more content not included)... Normal [facility] Shoulder min 2 Viewson 12-12 Shoulder min 2 Views [facility] Imaging Services [address] [place], [place] [id number] Shoulder min 2 Views MR#: [id number] Acct: [id number] Name: UAN COSBY Rep #: [id number] : 1995 M 29 From: Deangelo Peña MD PCP: Care Physician,No Primary Status: REG ER Study: Shoulder min 2 Views Date of Exam: 12/12/24 Exam# [id number] Ordering Dr: Arik Boswell MD PROCEDURE: SHOULDER MIN 2 VIEWS, 12/12/2024 REASON FOR EXAM: INJURY/PAIN TECHNIQUE: AP, Grashey, scapular Y, and axillary views of the LEFT shoulder were obtained. COMPARISON: None FINDINGS: Fracture/dislocation: None visible. Joint space(s): Preserved. Soft tissues: Unremarkable. Foreign bodies: None visible. Bone mineralization: Unremarkable. Other: None. RAD/Shoulder min 2 Views IMPRESSION: No visible acute abnormality. Reading Location: [id number] CC: Dr. Arik Boswell MD; No Primary Care Physician Director Of Dance: Signed Normal [facility] CBC W/Diff, Automatedon 11-07 PATH REV Reviewed Normal [facility] Comment on above: Result Comment: SEE REPORT IN PATIENT'S EMR AMENDED REPORT 11/23/24 1409 PATH REV previously reported as: December Performed By: #### L 500.2500 #### [facility] [place], [address] Absolute lymphocyte countOrd ered By: Lourdes Metz on 11-11-2024 Lymphocytes Auto (Unsp spec) [#/Vol] 2.97 10*3/uL 0.83-4.51 [facility] Absolute neutrophil countOrd ered By: Lourdes Metz on 11-11-2024 Neutrophils (Bld) [#/Vol] 11.8 10*3/uL High 2.0-7.7 [facility] Anion gap in Serum or Plasma Ordered By: Lourdes Metz on 11-11-2024 Anion gap [Moles/Vol] 11 mmol/L 5-15 [facility] Automated lymphocyte count a s percentage of total leukocytesOrdered By: Lourdes Metz on 11-11-2024 Lymphocytes/100 WBC Auto (Unsp spec) 17.9 % Low 19-41 [facility] BUN/creatinine ratioOrdered By: Lourdes Metz on 11-11-2024 Urea nitrogen/Creatinine [Mass ratio] 16.4 mg/mg 10-20 [facility] Base excess Calc (BldV) [Mol es/Vol]Ordered By: Steven Donaldson on 11-11-2024 Venous Blood Base Excess 2 mmol/L -1.0-3.5 [facility] Basophil percentageOrdered B y: Lourdes Metz on 11-11-2024 Basophils/100 WBC (Bld) 0.2 % 0-1 [facility] Beta hydroxybutyrate [Mass/V ol]Ordered By: Lourdes Metz on 11-11-2024 Beta-Hydroxybutyric Acid mmol/L 0.6 mmol/L 0.0-0.3 [facility] Beta-Hydroxbytyrateon 2024 BETA-HYDROXYBUT 0.6 mmol/L Normal 0.0-0.3 [facility] Comment on above: Performed By: #### L 501.6901 #### [facility] [address] [place], [address] Beta-hydroxybutyrateOrdered By: Lourdes Metz on 11-11-2024 Beta hydroxybutyrate [Mass/Vol] 0.6 mmol/L 0.0-0.3 [facility] Bilirubin, totalOrdered By: Lourdes Metz on 11-11-2024 Bilirubin [Mass/Vol] mg/dL 0.00-1.30 [facility] Blood manual differential co mment interpretation (narrative result)Ordered By: Lourdes Metz on 11-11-2024 Manual differential comment Gigi (Bld) [Interp] SCANNED [facility] CO2 (BldV) [Moles/Vol]Ordere d By: Steven Donaldson on 11-11-2024 CO2 [Moles/Vol] 28 mmol/L 23-33 [facility] CO2 (BldV) [Partial pressure ]Ordered By: Steven Donaldson on 11-11-2024 Bed Mix Venous Bld PCO2 at Pat Temp 39.6 mmHg Low 41-51 [facility] Carbon dioxide, total [Moles /volume] in Central venous bloodOrdered By: Lourdes Metz on 11-11-2024 CO2 [Moles/Vol] 24.8 mmol/L 21.0-32.0 [facility] Chloride assayOrdered By: Malena Metz on 11-11-2024 Chloride [Moles/Vol] 102 mmol/L 98-108 [facility] Comprehensive Metabolic Prof ilon 11-11-2024 Albumin [Mass/Vol] 3.6 g/dL Normal 3.5-5.0 [facility] Comment on above: Performed By: #### L 500.2500 #### [facility] [address] [place], [address] Albumin/Globulin [Mass ratio] 1.4 {ratio} Normal 0.9-2.4 [facility] Comment on above: Performed By: #### L 500.2500 #### [facility] [address] [place], [address] ALK PHOS 123 U/L Normal 40-129 [facility] Comment on above: Performed By: #### L 500.2500 #### [facility] [address] [place], [address] ALT [Catalytic activity/Vol] 20 U/L Normal <=46 [facility] Comment on above: Performed By: #### L 500.2500 #### [facility] [address] [place], [address] AST [Catalytic activity/Vol] 18 U/L Normal <=37 [facility] Comment on above: Performed By: #### L 500.2500 #### [facility] [address] [place], [address] BUN/CRE 16.4 RATIO Normal 10-20 [facility] Comment on above: Performed By: #### L 500.2500 #### [facility] [address] [place], [address] Calcium [Mass/Vol] 8.3 mg/dL Normal 7.6-11.0 [facility] Comment on above: Performed By: #### L 500.2500 #### [facility] [address] [place], [address] Chloride [Moles/Vol] 102 mmol/L Normal 98-108 [facility] Comment on above: Performed By: #### L 500.2500 #### [facility] [address] [place], [address] CO2 [Moles/Vol] 24.8 mmol/L Normal 21.0-32.0 [facility] Comment on above: Performed By: #### L 500.2500 #### [facility] [address] [place], [address] Creatinine [Mass/Vol] 0.85 mg/dL Normal 0.70-1.20 [facility] Comment on above: Performed By: #### L 500.2500 #### [facility] [address] [place], [address] ECRCL 115.58 ml/min Normal 50-250 [facility] Comment on above: Performed By: #### L 500.2500 #### [facility] [address] [place], [address] GAP 11 Normal 5-15 [facility] Comment on above: Performed By: #### L 500.2500 #### [facility] [address] [place], [address] GFR/1.73 sq M.predicted among non-blacks MDRD (S/P/Bld) [Vol rate/Area] 122 mL/min/{1.73_m2} Normal >60 [facility] Comment on above: Result Comment: mL/m in/1.73m2 CKD-EPI Creatinine Equation (2020) Performed By: #### L 500.2500 #### [facility] [address] [place], [address] Globulin (S) [Mass/Vol] 2.6 g/dL Normal 2.2-4.2 [facility] Comment on above: Performed By: #### L 500.2500 #### [facility] [address] [place], [address] Glucose [Mass/Vol] 113 mg/dL High 70-99 [facility] Comment on above: Performed By: #### L 500.2500 #### [facility] [address] [place], [address] Potassium [Moles/Vol] 3.2 mmol/L Low 3.3-5.1 [facility] Comment on above: Performed By: #### L 500.2500 #### [facility] [address] [place], [address] Sodium [Moles/Vol] 138 mmol/L Normal 133-145 [facility] Comment on above: Performed By: #### L 500.2500 #### [facility] [address] [place], [address] T BILI < 0.15 Normal 0.00-1.30 [facility] Comment on above: Performed By: #### L 500.2500 #### [facility] [address] [place], [address] T PROT 6.1 g/dL Normal 5.9-8.4 [facility] Comment on above: Performed By: #### L 500.2500 #### [facility] [address] [place], [address] Urea nitrogen [Mass/Vol] 14 mg/dL Normal 4-19 [facility] Comment on above: Performed By: #### L 500.2500 #### [facility] [address] [place], [address] Emergency Department Summary on 11-11-2024 Emergency Department Summary [facility] Medical Records Department [address] [address] Emergency Department Summary 11/11/24 MR#: [id number] Acct: [id number] Name: ALEAUNA JUAN Rep #: [id number] : 1995 29 From: Lourdes PITTMAN PCP: Care Physician,No Primary Status:DEP ER Location: ED HPI History of Present Illness Chief Complaint: Nausea/Vomiting Narrative Narrative: Patient presenting today with nausea and vomiting that started this afternoon at work. He reports that he threw up about 3 times. He reports minimal left upper quadrant abdominal pain. He has a history of T1DM, he reports that he is compliant with his medication, he has been in DKA in the past and this does not feel similar. He denies substance use including marijuana use. His last bowel movement was this morning and was normal. He denies fevers, chills, hematemesis, diarrhea, and urinary symptoms. PFSH PFSH Medical History Learning difficulty due to cognitive limitations H/O fracture of skull Anxiety Depression Septic shock Type 1 diabetes mellitus Type I diabetes mellitus, uncontrolled Home Medications ???Medication ???Instructions ???Recorded ???Last Taken ???Type insulin lispro 100 unit/mL 25 unit SQ TIDCM short acting 02/0703/04/21 History subcutaneous pen insulin insulin glargine 100 unit/mL (3 50 unit subcut QPM diabetes Unknown History mL) subcutaneous pen (Lantus Solostar U-100 Insulin) insulin glargine 100 unit/mL 35 unit subcut QHS 10/19/24 Unknow n History subcutaneous solution (Lantus U-100 Insulin) insulin lispro 100 unit/mL 25 unit subcut TIDCM 10/19/24 Unkn own History subcutaneous solution insulin syringe-needle U-100 0.5 10/19/24 Unknown History mL 31 gauge x 5/16" (TRUEplus Insulin) ondansetron 4 mg disintegrating 4 mg PO Q8H PRN PRN Nausea #10 tab s 11/11/24 Unknown Rx tablet Allergy/AdvReac Type Severity Reaction Status Date / Time No Known Allergies Allergy Verified 11/11/24 17:48 Family History Father Diabetes Surgical History H/O skin graft Social History household members: family Smoking Status: Current some day smoker tobacco type: cigarettes, e-cigarettes and smokeless tobacco Smokeless tobacco user: chewing tobacco second hand exposure: Yes alcohol intake: never substance use type: does not use ROS ROS ED Constitutional Constitutional ED: Denies chills or fever(s) Cardiovascular Cardiovascular: Denies chest pain Respiratory/Chest Respiratory/Chest: Denies dyspnea Gastrointestinal Gastrointestinal: Reports abdominal pain, nausea and vomiting; Denies constipation or diarrhea Genitourinary Genitourinary ED: Denies dysuria, hematuria or urinary urgency Musculoskeletal Musculoskeletal: Denies arthralgias or myalgias Integumentary Denies rash Neurologic Neurologic: Denies weakness EXAM Physical Exam Const Vital Signs: 11/11/24 17:46 11/11/24 19:18 Temperature 97.8 F 97.8 F Temperature Source Temporal Pulse Rate 118 H 102 H Respiratory Rate 14 18 Blood Pressure 116/79 128/86 H Blood Pressure Mean 91 100 Pulse Ox 98 98 Positive well nourished, well developed and no apparent distress General Appearance ED: well developed HEENT Reports normocephalic and head/scalp atraumatic Mouth ED: Yes moist mucous membranes normal Eyes PERRL and EOMs intact bilaterally Neck full ROM and supple Chest Wall inspection of chest normal Resp normal respiratory effort and clear to auscultation bilaterally Cardio regular rate and regular rhythm GI soft to palpation, non-tender, non-distended and no masses GI Narrative: Patient has a scar to his left upper quadrant with residual scar tissue Back/Spine normal ROM and normal to inspection Extremity normal to inspection and full ROM Neuro oriented x3, CN's II-XII intact bilaterally, moves all extremities, no focal motor deficits and no sensory deficits noted Sensorium / Orientation: awake and alert Psych mental status grossly normal and thought process normal Skin no rashes or lesions noted and no wounds Physical Exam Const Vital Signs: 11/11/24 17:46 11/11/24 19:18 Temperature 97.8 F 97.8 F Temperature Source Temporal Pulse Rate 118 H 102 H Respiratory Rate 14 18 Blood Pressure 116/79 128/86 H Blood Pressure Mean 91 100 Pulse Ox 98 98 MDM MDM MDM Narrative Medical decision making narrative: Patient presenting with nausea and vomiting that started this afternoon a (more content not included)... Normal [facility] Eosinophil percentageOrdered By: Lourdes Metz on 11-11-2024 Eosinophils/100 WBC (Bld) 0.8 % 0-5 [facility] Erythrocyte distribution wid th (RBC) [Ratio]Ordered By: Lourdes Metz on 11-11-2024 Erythrocyte distribution width (RBC) [Entitic vol] 42.0 fL 35.1-43.9 [facility] Erythrocyte distribution wid th ratioOrdered By: Lourdes Metz on 11-11-2024 Erythrocyte distribution width (RBC) [Ratio] 15.8 % High 11.6-14.6 [facility] Erythrocyte distribution wid th standard deviationOrdered By: Lourdes Metz on 11-11-2024 Erythrocyte distribution width (RBC) [Ratio] 42.0 fl 35.1-43.9 [facility] Erythrocyte morphology asses smentOrdered By: Lourdes Metz on 11-11-2024 RBC morphology finding Nom (Bld) NORM C+C NORMAL NORM C&C [facility] Estimation of creatinine riley aranceOrdered By: Lourdes Metz on 11-11-2024 Estimated Creatinine Clearance Calc 115.58 ml/min 50-250 [facility] GFR/1.73 sq M.predicted baldev g non-blacks MDRD (S/P/Bld) [Vol rate/Area]Ordered By: Lourdes Metz on 11-11-2024 Estimated GFR (MDRD) Non-Af Amer 122 >60 [facility] Comment on above: mL/min/1.73m2 CKD-EP I Creatinine Equation (2020) Glomerular filtration rate ( GFR) estimation/1.73 sq m using serum, plasma, or whole bOrdered By: Lourdes Metz on 11-11-2024 GFR/1.73 sq M.predicted among non-blacks MDRD (S/P/Bld) [Vol rate/Area] 122 mL/min/{1.73_m2} >60 [facility] Comment on above: mL/min/1.73m2 CKD-EP I Creatinine Equation (2020) Hematocrit Auto (Bld) [Volum e fraction]Ordered By: Lourdes Metz on 11-11-2024 Hematocrit (Bld) [Volume fraction] 39.7 % Low 40-54 [facility] Hemoglobin measurementOrdere d By: Lourdes Metz on 11-11-2024 Hemoglobin (Bld) [Mass/Vol] 12.5 g/dL Low 13.0-16.5 [facility] Immature granulocytes/100 WB C Auto (Bld)Ordered By: Lourdes Metz on 11-11-2024 Immature granulocytes/100 WBC (Bld) 0.400 % 0.0-0.9 [facility] Comment on above: IG% - Immature Granu locytes (promyelocytes, myelocytes and metamyelocytes) > 1% indicates that a LEFT SHIFT is Present. Laboratory - Chemistry and C hemistry - challengeOrdered By: Lourdes Metz on 11-11-2024 AST [Catalytic activity/Vol] 18 U/L <38 [facility] Lipaseon 11-11-2024 Lipase [Catalytic activity/Vol] 17 U/L Normal 13-75 [facility] Comment on above: Result Comment: Stella caro note: LIPASE revised reference range effective 22. New Lipase methodology. Expected to produce lower values than the previous assay method. NEW Reference Range: 13 - 75 U/L Performed By: #### L 500.2500 #### [facility] [address] [place] [address], [address] Lipase measurementOrdered By : Lourdes Metz on 11-11-2024 Lipase [Catalytic activity/Vol] 17 U/L 13-75 [facility] Comment on above: Please note:LIPASE r evised reference range effective 22. New Lipase methodology. Expected to produce lower values than the previous assay method. NEW Reference Range: 13 - 75 U/L Lymphocytes Auto (Unsp spec) [#/Vol]Ordered By: Lourdes Metz on 11-11-2024 Lymphocytes (Bld) [#/Vol] 2.97 10*3/uL 0.83-4.51 [facility] Lymphocytes/100 WBC Auto (Un sp spec)Ordered By: Lourdes Metz on 11-11-2024 Lymphocytes/100 WBC (Bld) 17.9 % Low 19-41 [facility] MCV (mean corpuscular volume ) determinationOrdered By: Lourdes Mtez on 11-11-2024 MCV (RBC) [Entitic vol] 75.0 fL Low 80-94 [facility] Manual differential comment Gigi (Bld) [Interp]Ordered By: Lourdes Metz on 11-11-[address] [facility] Mean corpuscular hemoglobin (MCH) determinationOrdered By: Lourdes Metz on 11-11-2024 MCH (RBC) [Entitic mass] 23.6 pg Low 27.0-32.0 [facility] Mean corpuscular hemoglobin concentration (MCHC) determinationOrdered By: Lourdes Metz on 11-11-2024 MCHC (RBC) [Mass/Vol] 31.5 g/dL Low 32-36 [facility] Mean platelet volume determi nationOrdered By: Lourdes Metz on 11-11-2024 Platelet mean volume (Bld) [Entitic vol] 10.6 fL 6.2-12.0 [facility] Monocyte percentageOrdered B y: Lourdes Metz on 11-11-2024 Monocytes/100 WBC (Bld) 9.5 % 0-10 [facility] Neutrophil percentageOrdered By: Lourdes Metz on 11-11-2024 Neutrophils/100 WBC (Bld) 71.2 % High 47-70 [facility] No Panel InformationOrdered By: Steven Donaldson on 11-11-2024 Blood Gas Sample Site Not entered [facility] Blood Gas Specimen Type JAIDEN [facility] Oxygen Delivery Device Room Air [facility] Nucleated red blood cell per centageOrdered By: Lourdes Metz on 11-11-2024 Nucleated RBC/100 WBC (Bld) [Ratio] 0 % 0-5 [facility] Oxygen (BldV) [Partial press ure]Ordered By: Steven Donaldson on 11-11-2024 Venous Blood Partial Pressure O2 40 mmHg 25-40 [facility] Pathologist review Gigi (Unsp spec) [Interp]Ordered By: Lourdes Metz on 11-11-2024 Differential Pathologist's Review May foll [facility] Platelet countOrdered By: Malena Metz on 11-11-2024 Platelets (Bld) [#/Vol] 314 10*3/uL 150-450 [facility] Platelet estimateOrdered By: Lourdes Metz on 11-11-2024 Platelets LM Ql (Bld) ADEQUATE ADEQ [facility] Platelet morphologyOrdered B y: Lourdes Metz on 11-11-2024 Platelet morphology finding Nom (Bld) LARGE [facility] Platelet morphology finding Nom (Bld)Ordered By: Lourdes Metz on 11-11-2024 Platelet Morphology Comment LARGE [facility] Platelets LM Ql (Bld)Ordered By: Lourdes Metz on 11-11-2024 Platelet Estimate ADEQUATE ADEQ [facility] Potassium (Unsp spec) [Mass/ Vol]Ordered By: Lourdes Metz on 11-11-2024 Potassium [Moles/Vol] 3.2 mmol/L Low 3.3-5.1 [facility] Potassium measurement (mass/ volume)Ordered By: Lourdes Metz on 11-11-2024 Potassium (Unsp spec) [Mass/Vol] 3.2 mmol/L Low 3.3-5.1 [facility] RBC Auto (Bld) [#/Vol]Ordere d By: Lourdes Metz on 11-11-2024 RBC (Bld) [#/Vol] 5.29 10*6/uL 4.6-6.2 [facility] RBC morphology finding Nom ( Bld)Ordered By: Lourdes Metz on 11-11-2024 Red Blood Cell Morphology NORM C+C NORMAL NORM C&C [facility] Review by pathologistOrdered By: Lourdes Metz on 11-11-2024 Pathologist review Gigi (Unsp spec) [Interp] Reviewed [facility] Comment on above: Previous reported re sult: Louisa wiseman Edited by: ANAYELI on 11/23/24:1409SEE REPORT IN PATIENT'S EMR AMENDED REPORT 11/23/24 1409 PATH REV previously reported as: Louisa wiseman Serum creatinine measurement (mass/volume)Ordered By: Lourdes Metz on 11-11-2024 Creatinine [Mass/Vol] 0.85 mg/dL 0.70-1.20 [facility] Serum globulin measurementOr dered By: Lourdes Metz on 11-11-2024 Globulin (S) [Mass/Vol] 2.6 g/dL 2.2-4.2 [facility] Serum glucose measurement (m ass/volume)Ordered By: Lourdes Metz on 11-11-2024 Glucose [Mass/Vol] 113 mg/dL High 70-99 [facility] Serum or plasma alanine oviedo otransferase (ALT) measurementOrdered By: Lourdes Mtez on 11-11-2024 ALT [Catalytic activity/Vol] 20 U/L <47 [facility] Serum or plasma albumin koby urement (mass/volume)Ordered By: Lourdes Metz on 11-11-2024 Albumin [Mass/Vol] 3.6 g/dL 3.5-5.0 [facility] Serum or plasma albumin/glob ulin mass ratioOrdered By: Lourdes Metz on 11-11-2024 Albumin/Globulin [Mass ratio] 1.4 {ratio} 0.9-2.4 [facility] Serum or plasma alkaline lopez sphatase measurementOrdered By: Lourdes Metz on 11-11-2024 ALP [Catalytic activity/Vol] 123 U/L 40-129 [facility] Serum or plasma calcium koby urement (mass/volume)Ordered By: Lourdes Metz on 11-11-2024 Calcium [Mass/Vol] 8.3 mg/dL 7.6-11.0 [facility] Serum or plasma urea nitroge n measurement (mass/volume)Ordered By: Lourdes Metz on 11-11-2024 Urea nitrogen [Mass/Vol] 14 mg/dL 4-19 [facility] Sodium levelOrdered By: Wesly Metz on 11-11-2024 Sodium [Moles/Vol] 138 mmol/L 133-145 [facility] Total proteinOrdered By: Graham Metz on 11-11-2024 Protein [Mass/Vol] 6.1 g/dL 5.9-8.4 [facility] Venous Blood Gason Blood Gas Type JAIDEN Normal [facility] Comment on above: Performed By: #### L 9000.0810 #### [facility] Laboratory [facility] [place], [address] CO2 [Moles/Vol] 28 mmol/L Normal 23-33 [facility] Comment on above: Performed By: #### L 9000.0810 #### [facility] Laboratory [address] [place], [address] HCO3 (Bld) [Moles/Vol] 27 mmol/L High 22-26 [facility] Comment on above: Performed By: #### L 8999.0810 #### [facility] Laboratory [address] [place], [address] O2 Delivery Dev Room Air Normal [facility] Comment on above: Performed By: #### L 900.0810 #### [facility] Laboratory [address] [place], [address] SITE Not entered Normal [facility] Comment on above: Performed By: #### L 900.0810 #### [facility] Laboratory [address] [place], [address] VBG BE 2 mmol/L Normal -1.0-3.5 [facility] Comment on above: Performed By: #### L 900.0810 #### [facility] Laboratory [address] [place], [address] VBG pCO2 39.6 mmHg Low 41-51 [facility] Comment on above: Performed By: #### L 9000.0810 #### [facility] Laboratory [address] [place], [address] VBG pH 7.44 High 7.32-7.42 [facility] Comment on above: Performed By: #### L 9000.0810 #### [facility] Laboratory [address] [place], [address] VBG PO2 40 mmHg Normal 25-40 [facility] Comment on above: Performed By: #### L 9000.0810 #### [facility] Laboratory [address] [place], [address] VBG SO2 76 High 50-70 [facility] Comment on above: Performed By: #### L 9000.0810 #### [facility] Laboratory [address] [place], [place], [address] Venous blood base excess yaya surementOrdered By: Steven Donaldson on 11-11-2024 Base excess Calc (BldV) [Moles/Vol] 2 mmol/L -1.0-3.5 [facility] Venous blood bicarbonate yaya surementOrdered By: Steven Donaldson on 11-11-2024 HCO3 (Bld) [Moles/Vol] 27 mmol/L High 22-26 [facility] Venous blood oxygen saturati on measurementOrdered By: Steven Donaldson on 11-11-2024 Oxygen saturation in Blood 76 % High 50-70 [facility] Venous blood pH measurementO rdered By: Steven Donaldson on 11-11-2024 pH (BldV) 7.44 [pH] High 7.32-7.42 [facility] Venous blood partial pressur e of carbon dioxide measurementOrdered By: Steven Donaldson on 11-11-2024 CO2 (BldV) [Partial pressure] 39.6 mm[Hg] Low 41-51 [facility] Venous blood partial pressur e of oxygen measurementOrdered By: Steven Lowery on 11-11-2024 Oxygen (BldV) [Partial pressure] 40 mm[Hg] 25-40 [facility] White blood cell (WBC) count Ordered By: Lourdes Metz on 11-11-2024 WBC (Bld) [#/Vol] 16.6 10*3/uL High 4.4-11.0 [facility] pH (BldV)Ordered By: Steven Rasmussen on 11-11-2024 Venous Blood pH 7.44 High 7.32-7.42 [facility] 12 Lead EKGon 10-19-2024 12 Lead EKG [facility] Cardiovascular Services [address] [place] [address] 12 Lead EKG 10/19/24 0029 MR#: [id number] Acct: [id number] Name: UNA COSBY Rep #: [id number] : 1995 29 From: Taylor Man MD Attending Dr: Status: DEP ER Ordering Dr: Keisha Handy DO Date: 10/19/24 Location: ED Sex: M C Admitted: Test Reason : Blood Pressure : */* mmHG Vent. Rate : 118 BPM Atrial Rate : 118 BPM P-R Int : 150 ms QRS Dur : 80 ms QT Int : 308 ms P-R-T Axes : 72 67 61 degrees QTcB Int : 431 ms Sinus tachycardia Otherwise normal ECG Confirmed by MEGAN MIRELES, NIKKI ([id number]), technical writer and editor COREY MICHAEL ([id number]) on 10/23/2024 10:53:38 AM Referred By: Confirmed By: NIKKI MAN MD 10/23/24 1053 Date Taylor Man MD CC: Dr. Keisha Handy DO; No Primary Care Physician Signed Normal [facility] Absolute lymphocyte countOrd ered By: Keisha Handy on 10-19-2024 Lymphocytes Auto (Unsp spec) [#/Vol] 3.70 10*3/uL 0.83-4.51 [facility] Absolute neutrophil countOrd ered By: Keisha Handy on 10-19-2024 Neutrophils (Bld) [#/Vol] 8.5 10*3/uL High 2.0-7.7 [facility] Anion gap in Serum or Plasma Ordered By: Keisha Handy on 10-19-2024 Anion gap [Moles/Vol] 17 mmol/L High 5-15 [facility] Comment on above: Previous reported re sult: 14 Edited by: AUTOINRadha on 10/19/24:0209 AMENDED REPORT 10/19/24 0209 GAP previously reported as: 14 Automated lymphocyte count a s percentage of total leukocytesOrdered By: Keisha Handy on 10-19-2024 Lymphocytes/100 WBC Auto (Unsp spec) 27.7 % 19-41 [facility] BUN/creatinine ratioOrdered By: Keisha Handy on 10-19-2024 Urea nitrogen/Creatinine [Mass ratio] 26.8 mg/mg High 10-20 [facility] Comment on above: Previous reported re sult: 25.4 RATIOEdited by: LUCERO on 10/19/24:0209 AMENDED REPORT 10/19/24208 BUN/CRE previously reported as: 25.4 H RATIO Base excess Calc (BldV) [Mol es/Vol]Ordered By: Keisha Handy on 10-19-2024 Venous Blood Base Excess -2 mmol/L Low -1.0-3.5 [facility] Basic Metabolic Profile (BMP )on 10-19-2024 Calcium [Mass/Vol] 8.9 mg/dL Normal 7.6-11.0 [facility] Comment on above: Performed By: #### L 500.2500 #### [facility] Laboratory [address] [place], [place], [address] GFR/1.73 sq M.predicted among non-blacks MDRD (S/P/Bld) [Vol rate/Area] 134 mL/min/{1.73_m2} Normal >60 [facility] Comment on above: Result Comment: mL/m in/1.73m2 CKD-EPI Creatinine Equation (2020) Performed By: #### L 500.2500 #### [facility] Laboratory [address] [place], [address] Basophil percentageOrdered B y: Keisha Handy on 10-19-2024 Basophils/100 WBC (Bld) 0.7 % 0-1 [facility] Bedside Glucoseon 10-19-2024 FINGERSTICK GLU 312 mg/dL High 74-106 [facility] Comment on above: Result Comment: TEJAL MATTA OF PATIENT CARE PER NURSING PROTOCOL Performed By: #### L 500.2500 #### [facility] Laboratory [address] [place], [address] Bilirubin Test strip Ql (U)O rdered By: Keisha Handy on 10-19-2024 Bilirubin Ql (U) Negative Negative [facility] CBC W/Diff, Automatedon - Absolute Lymph 3.70 X10 3/uL Normal 0.83-4.51 [facility] Comment on above: Performed By: #### L 500.2500 #### [facility] Laboratory [address] [place], [address] Absolute Neut 8.5 X10 3/uL High 2.0-7.7 [facility] Comment on above: Performed By: #### L 500.2500 #### [facility] Laboratory [address] [place], [address] Basophils/100 WBC (Bld) 0.7 % Normal 0-1 [facility] Comment on above: Performed By: #### L 500.2500 #### [facility] Laboratory [address] [place], [address] Eosinophils/100 WBC (Bld) 1.5 % Normal 0-5 [facility] Comment on above: Performed By: #### L 500.2500 #### [facility] Laboratory [address] [place], [address] Erythrocyte distribution width (RBC) [Ratio] 16.5 % High 11.6-14.6 [facility] Comment on above: Performed By: #### L 500.2500 #### [facility] Laboratory [address] [place], [address] Hematocrit (Bld) [Volume fraction] 43.5 % Normal 40-54 [facility] Comment on above: Performed By: #### L 500.2500 #### [facility] Laboratory [address] [place], [address] Hemoglobin (Bld) [Mass/Vol] 13.4 g/dL Normal 13.0-16.5 [facility] Comment on above: Performed By: #### L 500.2500 #### [facility] Laboratory [address] [place], [address] IG% 0.400 Normal 0.0-0.9 [facility] Comment on above: Result Comment: IG% - Immature Granulocytes (promyelocytes, myelocytes and metamyelocytes) > 1% indicates that a LEFT SHIFT is Present. Performed By: #### L 500.2500 #### [facility] Laboratory [address] [place], [address] Lymphocytes/100 WBC (Bld) 27.7 % Normal 19-41 [facility] Comment on above: Performed By: #### L 500.2500 #### [facility] Laboratory [address] [place], [address] MCH (RBC) [Entitic mass] 23.2 pg Low 27.0-32.0 [facility] Comment on above: Performed By: #### L 500.2500 #### [facility] Laboratory [address] [place], [address] MCHC (RBC) [Mass/Vol] 30.8 g/dL Low 32-36 [facility] Comment on above: Performed By: #### L 500.2500 #### [facility] Laboratory [address] [place], [address] MCV (RBC) [Entitic vol] 75.3 fL Low 80-94 [facility] Comment on above: Performed By: #### L 500.2500 #### [facility] Laboratory [address] [place], [address] Monocytes/100 WBC (Bld) 6.2 % Normal 0-10 [facility] Comment on above: Performed By: #### L 500.2500 #### [facility] Laboratory [address] [place], [address] Neutrophils/100 WBC (Bld) 63.5 % Normal 47-70 [facility] Comment on above: Performed By: #### L 500.2500 #### [facility] Laboratory [address] [place], [address] Nucleated RBC (Bld) [#/Vol] 0 10*3/uL Normal 0-5 [facility] Comment on above: Performed By: #### L 500.2500 #### [facility] Laboratory [address] [place], [address] Platelet mean volume (Bld) [Entitic vol] 10.3 fL Normal 6.2-12.0 [facility] Comment on above: Performed By: #### L 500.2500 #### [facility] Laboratory [address] [place], [address] Platelets (Bld) [#/Vol] 346 10*3/uL Normal 150-450 [facility] Comment on above: Performed By: #### L 500.2500 #### [facility] Laboratory [address] [place], [address] RBC (Bld) [#/Vol] 5.78 10*6/uL Normal 4.6-6.2 [facility] Comment on above: Performed By: #### L 500.2500 #### [facility] Laboratory [address] [place], [address] RDW SD 43.9 fl Normal 35.1-43.9 [facility] Comment on above: Performed By: #### L 500.2500 #### [facility] Laboratory [address] [place], [address] WBC (Bld) [#/Vol] 13.4 10*3/uL High 4.4-11.0 [facility] Comment on above: Performed By: #### L 500.2500 #### [facility] Laboratory [address] [place], [address] CO2 (BldV) [Moles/Vol]Ordere d By: Keisha Handy on 10-19-2024 CO2 [Moles/Vol] 25 mmol/L 23-33 [facility] CO2 (BldV) [Partial pressure ]Ordered By: Keisha Handy on 10-19-2024 Bed Mix Venous Bld PCO2 at Pat Temp 41.4 mmHg 41-51 [facility] Carbon dioxide, total [Moles /volume] in Central venous bloodOrdered By: Keisha Handy on 10-19-2024 CO2 [Moles/Vol] 20.5 mmol/L Low 21.0-32.0 [facility] Comment on above: Previous reported re sult: 22.7 mmol/LEdited by: AUTOINS on 10/19/24:0209 AMENDED REPORT 10/19/24 020 CO2 previously reported as: 22.7 mmol/L Chest PA and Lateralon 10-19 Chest PA and Lateral [facility] Imaging Services [address] [place], [place] [address] Chest PA and Lateral MR#: [id number] Acct: [id number] Name: UNA COSBY Rep #: [id number] : 1995 M 29 From: Tirso Massey MD PCP: Dr. Deangelo Noel MD Status: PRE ER Study: Chest PA and Lateral Date of Exam: 10/19/24 Exam# [id number] Ordering Dr: Keisha Handy DO PROCEDURE: CHEST PA AND LATERAL REASON FOR EXAM: CHEST PAIN TECHNIQUE: PA and lateral views of the chest. COMPARISON: 02/15/2023 FINDINGS: The lungs are clear. The cardiac and mediastinal contours are within limits. The visualized osseous structures appear within limits. RAD/Chest PA and Lateral IMPRESSION: No evidence of acute disease. Reading Location: [id number] CC: Dr. Keisha Handy DO; Dr. Deangelo Noel MD Director Of Dance: Signed Normal [facility] Chloride assayOrdered By: Javier Handy on 10-19-2024 Chloride [Moles/Vol] 92 mmol/L Low 98-108 [facility] Comment on above: Previous reported re sult: 93 mmol/LEdited by: AUTOINS on 10/19/24:0209 AMENDED REPORT 10/19/24 0209 CL previously reported as: 93 L mmol/L D-Dimer Quantitative (DVT/PE )on 10-19-2024 D-DIMER QUANT 0.28 FEU/ug/m Normal 0.27-0.49 [facility] Comment on above: Result Comment: NORM AL D-Dimer level (<0.50) indicates no DVT or PE. Performed By: #### L 500.2500 #### [facility] Laboratory [address] [facility] [place], [address] D-dimer measurement for deep venous thrombosisOrdered By: Keisha Handy on 10-19-2024 D-Dimer Quantitative (PE/DVT) 0.28 FEU/ug/m 0.27-0.49 [facility] Comment on above: NORMAL D-Dimer level (<0.50) indicates no DVT or PE. Emergency Department Summary on 10-19-2024 Emergency Department Summary [facility] Medical Records Department [address] [place] [address] Emergency Department Summary 10/19/24 MR#: [id number] Acct: [id number] Name: UNA COSBY Rep #: [id number] : 1995 29 From: Keisha Handy DO PCP: Care Physician,No Primary Status:REG ER Location: ED HPI History of Present Illness Chief Complaint: Chest Pain Informant: patient Narrative Narrative: Patient is 29-year-old male with history of type 1 diabetes mellitus, palpitations and anxiety presenting with chest pain. Patient states that he is getting from his of 2 years. He found that she cheated on him. They have been arguing all day and he has been trying to block her number. She has continue to try to contact him. He states he lost it and started yelling/fighting with her. He then developed left sided chest pain. He describes it as it feels like there is a bullet in his chest or his chest to get hit by a sledgehammer. Denies any radiation of the pain. Does relic his heart is racing. States he has had issues with palpitations and elevated heart rate but they never been there for got a cause. This been going on for years. He does not take any cardiac medications. He denies any swelling of his legs. Denies history of DVT PE. States he does have some pain with deep breathing since this started. Denies any other complaints at this time. No fever or chills reported. No cough reported. States his blood sugar has been in the 200s to 300s but attributes that to stress. States has been taking his insulin. No other complaints or concerns reported at this time. [facility] Medical History Learning difficulty due to cognitive limitations H/O fracture of skull Anxiety Depression Septic shock Type 1 diabetes mellitus Type I diabetes mellitus, uncontrolled Home Medications ???Medication ???Instructions ???Recorded ???Last Taken ???Type insulin lispro 100 unit/mL 25 unit SQ TIDCM short acting 02/0703/04/21 History subcutaneous pen insulin insulin glargine 100 unit/mL (3 50 unit subcut QPM diabetes Unknown History mL) subcutaneous pen (Lantus Solostar U-100 Insulin) insulin glargine 100 unit/mL 35 unit subcut QHS 10/19/24 Unknow n History subcutaneous solution (Lantus U-100 Insulin) insulin lispro 100 unit/mL 25 unit subcut TIDCM 10/19/24 Unkn own History subcutaneous solution insulin syringe-needle U-100 0.5 10/19/24 Unknown History mL 31 gauge x 5/16" (TRUEplus Insulin) Allergy/AdvReac Type Severity Reaction Status Date / Time No Known Allergies Allergy Verified 10/19/24 00:16 Family History Father Diabetes Surgical History H/O skin graft Social History household members: family Smoking Status: Current some day smoker tobacco type: cigarettes, e-cigarettes and smokeless tobacco Smokeless tobacco user: chewing tobacco second hand exposure: Yes alcohol intake: never substance use type: does not use ROS ROS ED Constitutional Constitutional ED: Denies chills or fever(s) ENT ENT ED: Denies sore throat Cardiovascular Cardiovascular: Reports as per HPI, chest pain and racing heartbeat Respiratory/Chest Respiratory/Chest: Reports dyspnea; Denies cough Gastrointestinal Gastrointestinal: Denies abdominal pain, diarrhea, melena, nausea or vomiting Musculoskeletal Musculoskeletal: Denies arthralgias or myalgias Integumentary Denies rash Neurologic Neurologic: Denies weakness Psychiatric Psychiatric: Reports anxiety EXAM Physical Exam Const Vital Signs: 10/19/24 00:09 10/19/24 00:50 10/19/24 01:00 Temperature 97.6 F L Temperature Source Oral Pulse Rate 123 H 117 H Respiratory Rate 18 17 Blood Pressure 161/115 H 158/110 H Blood Pressure Mean 130 123 Pulse Ox 98 97 Oxygen Delivery Method Room Air Room Air Room Air 10/19/24 01:15 10/19/24 02:00 10/19/24 02:13 Temperature Temperature Source Pulse Rate 116 H 110 H 112 H Respiratory Rate 16 16 17 Blood Pressure 144/107 H 132/85 H 147/106 H Blood Pressure Mean 118 100 119 Pulse Ox 98 98 99 Oxygen Delivery Method Room Air Room Air Room Air 10/19/24 03:00 10/19/24 04:00 10/19/24 05:00 Temperature Temperature Source Pulse Rate 108 H 105 H 112 H Respiratory Rate 18 16 21 H Blood Pressure 119/84 H 133/90 H 133/89 H Blood Pressure Mean 95 104 103 Pulse Ox 99 97 94 Oxygen Delivery Method Room Air Room Air Room Air Positive well nourished and well developed General Appearance ED: well developed and NAD HEEN (more content not included)... Normal [facility] Eosinophil percentageOrdered By: Keisha Handy on 10-19-2024 Eosinophils/100 WBC (Bld) 1.5 % 0-5 [facility] Epithelial cells.squamous LM Ql (Urine sed)Ordered By: Keisha Handy on 10-19-2024 Epithelial cells.squamous LM.HPF (Urine sed) [#/Area] 0 /[HPF] 0-5 [facility] Erythrocyte distribution wid th ratioOrdered By: Keisha Handy on 10-19-2024 Erythrocyte distribution width (RBC) [Ratio] 16.5 % High 11.6-14.6 [facility] Erythrocyte distribution wid th standard deviationOrdered By: Keisha Handy on 10-19-2024 Erythrocyte distribution width (RBC) [Entitic vol] 43.9 fL 35.1-43.9 [facility] Erythrocyte distribution width (RBC) [Ratio] 43.9 fl 35.1-43.9 [facility] Estimation of creatinine riley aranceOrdered By: Keisha Handy on 10-19-2024 Estimated Creatinine Clearance Calc 163.42 ml/min 50-250 [facility] GFR/1.73 sq M.predicted baldev g non-blacks MDRD (S/P/Bld) [Vol rate/Area]Ordered By: Keisha Handy on 10-19-2024 Estimated GFR (MDRD) Non-Af Amer 134 >60 [facility] Comment on above: mL/min/1.73m2 CKD-EP I Creatinine Equation (2020) Glomerular filtration rate ( GFR) estimation/1.73 sq m using serum, plasma, or whole bOrdered By: Keisha Handy on 10-19-2024 GFR/1.73 sq M.predicted among non-blacks MDRD (S/P/Bld) [Vol rate/Area] 134 mL/min/{1.73_m2} >60 [facility] Comment on above: mL/min/1.73m2 CKD-EP I Creatinine Equation (2020) Glucose Ql (U)Ordered By: Javier Handy on 10-19-2024 Glucose (U) [Mass/Vol] 1000 mg/dL High Normal [facility] deOrdered By: Keisha Handy on 10-19-2024 Bedside Glucose (Misc Panel) 312 mg/dL High 74-106 [facility] Comment on above: MANAGEMENT OF PATIEN T CARE PER NURSING PROTOCOL Glucose [Mass/Vol] 312 mg/dL High 74-106 [facility] Comment on above: MANAGEMENT OF PATIEN T CARE PER NURSING PROTOCOL Hematocrit Auto (Bld) [Volum e fraction]Ordered By: Keisha Handy on 10-19-2024 Hematocrit (Bld) [Volume fraction] 43.5 % 40-54 [facility] Hemoglobin measurementOrdere d By: Keisha Handy on 10-19-2024 Hemoglobin (Bld) [Mass/Vol] 13.4 g/dL 13.0-16.5 [facility] Immature granulocytes/100 WB C Auto (Bld)Ordered By: Keisha Handy on 10-19-2024 Immature granulocytes/100 WBC (Bld) 0.400 % 0.0-0.9 [facility] Comment on above: IG% - Immature Granu locytes (promyelocytes, myelocytes and metamyelocytes) > 1% indicates that a LEFT SHIFT is Present. Ketones Test strip Ql (U)Ord ered By: Keisha Handy on 10-19-2024 Ketones Ql (U) 15 mg/dl High Negative [facility] L499.0042on 10-19-2024 Trop T High Sen 9 ng/L Normal <=22 [facility] Comment on above: Performed By: #### L 499.0042 ####[facility] [address] [place], [address] L501.4021on 10-19-2024 Trop T High Sen 8 ng/L Normal <=22 [facility] Comment on above: Result Comment: AMENDED REPORT 10/19/24 0201 Trop T High Sen previously reported as: 7 ng/L Performed By: #### L 500.2500 #### [facility] [address] [place], [address] L501.6901on 10-19-2024 BETA-HYDROXYBUT 0.6 mmol/L Normal 0.0-0.3 [facility] Comment on above: Performed By: #### L 501.6901 #### [facility] [address] [place], [address] Lymphocytes Auto (Unsp spec) [#/Vol]Ordered By: Keisha Handy on 10-19-2024 Lymphocytes (Bld) [#/Vol] 3.70 10*3/uL 0.83-4.51 [facility] Lymphocytes/100 WBC Auto (Un sp spec)Ordered By: Keisha Handy on 10-19-2024 Lymphocytes/100 WBC (Bld) 27.7 % 19-41 [facility] MCV (mean corpuscular volume ) determinationOrdered By: Keisha Handy on 10-19-2024 MCV (RBC) [Entitic vol] 75.3 fL Low 80-94 [facility] Mean corpuscular hemoglobin (MCH) determinationOrdered By: Keisha Handy on 10-19-2024 MCH (RBC) [Entitic mass] 23.2 pg Low 27.0-32.0 [facility] Mean corpuscular hemoglobin concentration (MCHC) determinationOrdered By: Keisha Handy on 10-19-2024 MCHC (RBC) [Mass/Vol] 30.8 g/dL Low 32-36 [facility] Mean platelet volume determi nationOrdered By: Keisha Handy on 10-19-2024 Platelet mean volume (Bld) [Entitic vol] 10.3 fL 6.2-12.0 [facility] Microscopic analysis of urin e for red blood cells (RBC)Ordered By: Keisha Handy on 10-19-2024 Microscopic analysis of urine for red blood cells (RBC) 0-5 SEEN /hpf 0-5 [facility] Urine RBC 0-5 SEEN /hpf 0-5 [facility] Monocyte percentageOrdered B y: Keisha Handy on 10-19-2024 Monocytes/100 WBC (Bld) 6.2 % 0-10 [facility] Mucus LM Ql (Urine sed)Order ed By: Keisha Handy on 10-19-2024 Mucus Ql (Urine sed) 0 SEEN /hpf [facility] Neutrophil percentageOrdered By: Keisha Handy on 10-19-2024 Neutrophils/100 WBC (Bld) 63.5 % 47-70 [facility] Nitrite Test strip Ql (U)Ord ered By: Keisha Handy on 10-19-2024 Nitrite Ql (U) Negative Negative [facility] No Panel InformationOrdered By: Keisha Handy on 10-19-2024 Blood Gas Sample Site Not entered [facility] Blood Gas Specimen Type JAIDEN [facility] Oxygen Delivery Device Room Air [facility] Beta-Hydroxybutyric Acid mmol/L 0.6 mmol/L 0.0-0.3 [facility] Troponin T High Sensitivity 8 ng/L <22 [facility] Comment on above: Previous reported re sult: 7 ng/LEdited by: AUTOINRadha on 10/19/24:0201 AMENDED REPORT 10/19/24 0201 Trop T High Sen previously reported as: 7 ng/L Nucleated red blood cell per centageOrdered By: Keisha Handy on 10-19-2024 Nucleated RBC/100 WBC (Bld) [Ratio] 0 % 0-5 [facility] Oxygen (BldV) [Partial press ure]Ordered By: Keisha Handy on 10-19-2024 Venous Blood Partial Pressure O2 32 mmHg 25-40 [facility] Platelet countOrdered By: Javier Handy on 10-19-2024 Platelets (Bld) [#/Vol] 346 10*3/uL 150-450 [facility] Potassium (Unsp spec) [Mass/ Vol]Ordered By: Keisha Handy on 10-19-2024 Potassium [Moles/Vol] 4.1 mmol/L 3.3-5.1 [facility] Potassium measurement (mass/ volume)Ordered By: Keisha Handy on 10-19-2024 Potassium (Unsp spec) [Mass/Vol] 4.1 mmol/L 3.3-5.1 [facility] Protein Test strip Ql (U)Ord ered By: Keisha Handy on 10-19-2024 Protein Ql (U) 100 mg/dl High Negative [facility] RBC Auto (Bld) [#/Vol]Ordere d By: Keisha Handy on 10-19-2024 RBC (Bld) [#/Vol] 5.78 10*6/uL 4.6-6.2 [facility] Serum creatinine measurement (mass/volume)Ordered By: Keisha Handy on 10-19-2024 Creatinine [Mass/Vol] 0.63 mg/dL Low 0.70-1.20 [facility] Serum glucose measurement (m ass/volume)Ordered By: Keisha Handy on 10-19-2024 Glucose [Mass/Vol] 458 mg/dL High 70-99 [facility] Comment on above: Critical Result(s) C alled at:0208 by: SERAFIN BELL TO RN SHUFF2 Results read back by same.Previous reported result: 457 mg/dLEdited by: En NoirS on 10/19/24:0209 AMENDED REPORT 10/19/24208 GLU previously reported as: 457 *H mg/dL Serum or plasma calcium koby urement (mass/volume)Ordered By: Keisha Handy on 10-19-2024 Calcium [Mass/Vol] 8.9 mg/dL 7.6-11.0 [facility] Serum or plasma urea nitroge n measurement (mass/volume)Ordered By: Keisha Handy on 10-19-2024 Urea nitrogen [Mass/Vol] 17 mg/dL 4-19 [facility] Comment on above: Previous reported re sult: 16 mg/dLEdited by: En NoirS on 10/19/24:0209 AMENDED REPORT 10/19/24208 BUN previously reported as: 16 mg/dL Sodium levelOrdered By: Roger Handy on 10-19-2024 Sodium [Moles/Vol] 129 mmol/L Low 133-145 [facility] Comment on above: Previous reported re sult: 130 mmol/LEdited by: LUCERO on 10/19/24:0209 AMENDED REPORT 10/19/24208 NA previously reported as: 130 L mmol/L Squamous epithelial cells de tection in urine sediment by light microscopyOrdered By: Keisha Handy on 10-19-2024 Epithelial cells.squamous LM Ql (Urine sed) 0-5 SEEN /hpf 0-5 [facility] Troponin T.cardiac High sens itivity method [Mass/Vol]Ordered By: Keisha Handy on 10-19-2024 Troponin T High Sensitivity 2 Hour 9 ng/L <22 [facility] Troponin T.cardiac [Mass/vol ume] in Serum or Plasma by High sensitivity methodOrdered By: Keisha Handy on 10-19-2024 Troponin T.cardiac High sensitivity method [Mass/Vol] 9 ng/L <22 [facility] Urinalysis, Completeon 10-19 BACTERIA 1+ /hpf Normal None Seen [facility] Comment on above: Order Comment: COLLE CTOR TO SPECIFY Performed By: #### L 500.2500 #### [facility] [address] [place], [address] EPI,SQUAMOUS 0-5 SEEN Normal 0-5 [facility] Comment on above: Order Comment: MANN CTOR TO SPECIFY Performed By: #### L 500.2500 #### [facility] [address] [place], [address] RBC 0-5 SEEN Normal 0-5 [facility] Comment on above: Order Comment: MANN CTOR TO SPECIFY Performed By: #### L 500.2500 #### [facility] [address] [place], [address] Mucus Ql (Urine sed) [address] [facility] Comment on above: Order Comment: MANN CTOR TO SPECIFY Performed By: #### L 500.2500 #### [facility] [address] [place], [address] WBC 0 SEEN Normal 0-5 [facility] Comment on above: Order Comment: MANN CTOR TO SPECIFY Performed By: #### L 500.2500 #### [facility] [address] [place], [address] Urine blood detectionOrdered By: Keisha Handy on 10-19-2024 Urine Occult Blood 25 /ul High Negative [facility] Urine clarityOrdered By: Soraida Handy on 10-19-2024 Clarity (U) Clear Clear [facility] Urine color determinationOrd ered By: Keisha Handy on 10-19-2024 Color (U) Yellow Yellow [facility] Urine glucose detectionOrder ed By: Keisha Handy on 10-19-2024 Glucose Ql (U) 1000 mg/dl High Normal [facility] Urine leukocyte esterase det ection by dipstickOrdered By: Keisha Handy on 10-19-2024 Leukocyte esterase Test strip Ql (U) Negative Negative [facility] Urine pHOrdered By: Keisha santiago on 10-19-2024 pH (U) 6.0 [pH] 5.0 - 8.0 [facility] Urine sediment bacteria coun t by microscopy (number/high power field)Ordered By: Keisha Handy on 10-19-2024 Bacteria LM.HPF (Urine sed) [#/Area] 1 /[HPF] None Seen [facility] Urine specific gravity measu rementOrdered By: Keisha Handy on 10-19-2024 Specific gravity (U) [Rel density] 1.010 1.002-1.03 0 [facility] Urine urobilinogen measureme ntOrdered By: Keisha Handy on 10-19-2024 Urobilinogen Ql (U) Normal mg/dl Normal [facility] Urobilinogen Ql (U)Ordered B y: Keisha Handy on 10-19-2024 Urine Urobilinogen Normal mg/dl Normal [facility] Venous Blood Gason Blood Gas Type JAIDEN Normal [facility] Comment on above: Performed By: #### L 501.6901 #### [facility] [address] [place], [address] CO2 [Moles/Vol] 25 mmol/L Normal 23-33 [facility] Comment on above: Performed By: #### L 501.6901 #### [facility] [address] [place], [address] HCO3 (Bld) [Moles/Vol] 23 mmol/L Normal 22-26 [facility] Comment on above: Performed By: #### L 501.6901 #### [facility] [address] [place], [address] O2 Delivery Dev Room Air Normal [facility] Comment on above: Performed By: #### L 501.6901 #### [facility] [address] [place], [address] SITE Not entered [facility] Comment on above: Performed By: #### L 501.6901 #### [facility] [address] [place], [address] VBG BE -2 mmol/L Low -1.0-3.5 [facility] Comment on above: Performed By: #### L 501.6901 #### [facility] [address] [place], [place], [address] VBG pCO2 41.4 mmHg Normal 41-51 [facility] Comment on above: Performed By: #### L 501.6901 #### [facility] [address] [place], [place], [address] VBG pH 7.36 Normal 7.32-7.42 [facility] Comment on above: Performed By: #### L 501.6901 #### [facility] [address] [place], [address] VBG PO2 32 mmHg Normal 25-40 [facility] Comment on above: Performed By: #### L 501.6901 #### [facility] [address] [place], [address] VBG SO2 59 Normal 50-70 [facility] Comment on above: Performed By: #### L 501.6901 #### [facility] [address] [place], [place], [address] Venous blood base excess yaya surementOrdered By: Keisha Handy on 10-19-2024 Base excess Calc (BldV) [Moles/Vol] -2 mmol/L Low -1.0-3.5 [facility] Venous blood bicarbonate yaya surementOrdered By: Keisha Handy on 10-19-2024 HCO3 (Bld) [Moles/Vol] 23 mmol/L 22-26 [facility] Venous blood oxygen saturati on measurementOrdered By: Keisha Handy on 10-19-2024 Oxygen saturation in Blood 59 % 50-70 [facility] Venous blood pH measurementO rdered By: Keisha Handy on 10-19-2024 pH (BldV) 7.36 [pH] 7.32-7.42 [facility] Venous blood partial pressur e of carbon dioxide measurementOrdered By: Keisha Handy on 10-19-2024 CO2 (BldV) [Partial pressure] 41.4 mm[Hg] 41-51 [facility] Venous blood partial pressur e of oxygen measurementOrdered By: Keisha Handy on 10-19-2024 Oxygen (BldV) [Partial pressure] 32 mm[Hg] 25-40 [facility] White blood cell (WBC) count Ordered By: Keisha Handy on 10-19-2024 WBC (Bld) [#/Vol] 13.4 10*3/uL High 4.4-11.0 [facility] White blood cell countOrdere d By: Keisha Handy on 10-19-2024 Urine WBC 0 SEEN /hpf 0-5 [facility] White blood cell count 0 SEEN /hpf 0-5 [facility] pH (BldV)Ordered By: Keisha Handy on 10-19-2024 Venous Blood pH 7.36 7.32-7.42 [facility] CBC W Auto Differential pane l (Bld)on 10-10-2024 Basophils (Bld) [#/Vol] 0.06 10*3/uL Normal <0.11 [facility] Comment on above: Order Comment: Speci men Type: BLOOD SPECIMEN Ordering Facility: [facility] Address: [address] [place] [address] Performed By: #### 5 7021-8 #### [facility] CLIA [id number] [address] [place] [address] [place] Basophils/100 WBC (Bld) 0.5 % Normal [facility] Comment on above: Order Comment: Speci men Type: BLOOD SPECIMEN Ordering Facility: [facility] Address: [address] [place] [address] Performed By: #### 5 7021-8 #### [facility] CLIA [id number] [address] [place] [address] [place] Differential cell count method Nom (Bld) Auto Normal [facility] Comment on above: Order Comment: Speci men Type: BLOOD SPECIMEN Ordering Facility: [facility] Address: [address] [place] [address] Performed By: #### 5 7021-8 #### [facility] CLIA [id number] [address] [place] [address] [place] Eosinophils (Bld) [#/Vol] 0.20 10*3/uL Normal <0.46 [facility] Comment on above: Order Comment: Speci men Type: BLOOD SPECIMEN Ordering Facility: [facility] Address: [address] [place] [address] Performed By: #### 5 7021-8 #### [facility] CLIA [id number] [address] [place] [address] [place] Eosinophils/100 WBC (Bld) 1.6 % Normal [facility] Comment on above: Order Comment: Speci men Type: BLOOD SPECIMEN Ordering Facility: [facility] Address: [address] [place] [address] Performed By: #### 5 7021-8 #### [facility] CLIA [id number] [address] [place] [address] [place] Erythrocyte distribution width (RBC) [Ratio] 16.2 % High 11.5-15.0 [facility] Comment on above: Order Comment: Speci men Type: BLOOD SPECIMEN Ordering Facility: [facility] Address: [address] [place] [address] Performed By: #### 5 7021-8 #### [facility] CLIA [id number] [address] [place] [address] [place] Hematocrit (Bld) [Volume fraction] 42.3 % Normal 39.0-51.0 [facility] Comment on above: Order Comment: Speci men Type: BLOOD SPECIMEN Ordering Facility: [facility] Address: [address] [place] [address] Performed By: #### 5 7021-8 #### [facility] CLIA [id number] [address] [place] [address] [place] Hemoglobin (Bld) [Mass/Vol] 13.0 g/dL Normal 13.0-17.0 [facility] Comment on above: Order Comment: Speci men Type: BLOOD SPECIMEN Ordering Facility: [facility] Address: [address] [place] [address] Performed By: #### 5 7021-8 #### [facility] CLIA [id number] [address] [place] [address] [place] Immature granulocytes (Bld) [#/Vol] 0.04 10*3/uL Normal <0.10 [facility] Comment on above: Order Comment: Speci men Type: BLOOD SPECIMEN Ordering Facility: [facility] Address: [address] [place] [address] Performed By: #### 5 7021-8 #### [facility] CLIA [id number] [address] [place] [address] [place] Immature granulocytes/100 WBC (Bld) 0.3 % Normal [facility] Comment on above: Order Comment: Speci men Type: BLOOD SPECIMEN Ordering Facility: [facility] Address: [address] [place] [address] Performed By: #### 5 7021-8 #### [facility] CLIA [id number] [address] [place] [address] [place] Lymphocytes (Bld) [#/Vol] 4.12 10*3/uL High 1.00-4.00 [facility] Comment on above: Order Comment: Speci men Type: BLOOD SPECIMEN Ordering Facility: [facility] Address: [address] [place] [address] Performed By: #### 5 7021-8 #### [facility] CLIA [id number] [address] [place] [address] [place] Lymphocytes/100 WBC (Bld) 33.4 % Normal [facility] Comment on above: Order Comment: Speci men Type: BLOOD SPECIMEN Ordering Facility: [facility] Address: [address] [place] [address] Performed By: #### 5 7021-8 #### [facility] CLIA [id number] [address] [place] [address] [place] MCH (RBC) [Entitic mass] 23.2 pg Low 26.0-34.0 [facility] Comment on above: Order Comment: Speci men Type: BLOOD SPECIMEN Ordering Facility: [facility] Address: [address] [place] [address] Performed By: #### 5 7021-8 #### [facility] [id number] [address] [place] [address] [place] MCHC (RBC) [Mass/Vol] 30.7 g/dL Normal 30.5-36.0 [facility] Comment on above: Order Comment: Speci men Type: BLOOD SPECIMEN Ordering Facility: [facility] Address: [address] [place] [address] Performed By: #### 5 7021-8 #### [facility] [id number] [address] [place] [address] [place] MCV (RBC) [Entitic vol] 75.4 fL Low 80.0-100.0 [facility] Comment on above: Order Comment: Speci men Type: BLOOD SPECIMEN Ordering Facility: [facility] Address: [address] [place] [address] Performed By: #### 5 7021-8 #### [facility] [id number] [address] [place] [address] [place] Monocytes (Bld) [#/Vol] 0.97 10*3/uL High <0.87 [facility] Comment on above: Order Comment: Speci men Type: BLOOD SPECIMEN Ordering Facility: [facility] Address: [address] [place] [address] Performed By: #### 5 7021-8 #### [facility] CLIA [id number] [address] [place] [address] [place] Monocytes/100 WBC (Bld) 7.9 % Normal [facility] Comment on above: Order Comment: Speci men Type: BLOOD SPECIMEN Ordering Facility: [facility] Address: [address] [place] [address] Performed By: #### 5 7021-8 #### [facility] CLIA [id number] [address] [place] [address] [place] Neutrophils (Bld) [#/Vol] 6.94 10*3/uL Normal 1.45-7.50 [facility] Comment on above: Order Comment: Speci men Type: BLOOD SPECIMEN Ordering Facility: [facility] Address: [address] [place] [address] Performed By: #### 5 7021-8 #### [facility] CLIA [id number] [address] [place] [address] [place] Neutrophils/100 WBC (Bld) 56.3 % Normal [facility] Comment on above: Order Comment: Speci men Type: BLOOD SPECIMEN Ordering Facility: [facility] Address: [address] [place] [address] Performed By: #### 5 7021-8 #### [facility] CLIA [id number] [address] [place] [address] [place] Nucleated RBC (Bld) [#/Vol] 10*3/uL Normal <0.01 [facility] Comment on above: Order Comment: Speci men Type: BLOOD SPECIMEN Ordering Facility: [facility] Address: [address] [place] [address] Performed By: #### 5 7021-8 #### [facility] CL[facility] [id number] [address] [place] [address] [place] Nucleated RBC/100 WBC (Bld) [Ratio] 0.0 /100 WBC Normal [facility] Comment on above: Order Comment: Speci men Type: BLOOD SPECIMEN Ordering Facility: [facility] Address: [address] [place] [address] Performed By: #### 5 7021-8 #### [facility] CLIA [id number] [address] [place] [address] [place] Platelet mean volume (Bld) [Entitic vol] 11.3 fL Normal 9.0-12.7 [facility] Comment on above: Order Comment: Speci men Type: BLOOD SPECIMEN Ordering Facility: [facility] Address: [address] [place] [address] Performed By: #### 5 7021-8 #### [facility] CLIA [id number] [address] [place] [address] [place] Platelets (Bld) [#/Vol] 403 10*3/uL High 150-400 [facility] Comment on above: Order Comment: Speci men Type: BLOOD SPECIMEN Ordering Facility: [facility] Address: [address] [place] [address] Performed By: #### 5 7021-8 #### [facility] CLIA [id number] 1 [place] [address] [place] RBC (Bld) [#/Vol] 5.61 10*6/uL Normal 4.20-6.00 [facility] Comment on above: Order Comment: Speci men Type: BLOOD SPECIMEN Ordering Facility: [facility] Address: [address] [place] [address] Performed By: #### 5 7021-8 #### [facility] CLIA [id number] [address] [place] [address] [place] WBC (Bld) [#/Vol] 12.33 10*3/uL High 3.70-11.00 [facility] Comment on above: Order Comment: Speci men Type: BLOOD SPECIMEN Ordering Facility: [facility] Address: [address] [place] [address], [place] [address] Performed By: #### 5 7021-8 #### [facility] CLIA [id number] 721 [place] [address] [facility] Comprehensive metabolic 2000 panelon 10-10-2024 Albumin [Mass/Vol] 3.8 g/dL Low 3.9-4.9 [facility] Comment on above: Order Comment: Speci men Type: BLOOD SPECIMEN Ordering Facility: [facility] Address: [address] [place] [address], [place] [address] Performed By: #### 2 4323-8, 3016-3 #### [facility] CLIA [id number] [address] #### 56030-0 #### [facility] CLIA [id number] [address] CLIA [id number] [address] [place] [address] ALP [Catalytic activity/Vol] 175 U/L High 38-113 [facility] Comment on above: Order Comment: Speci men Type: BLOOD SPECIMEN Ordering Facility: [facility] Address: [address] [place] [address], [place] [address] Performed By: #### 2 4323-8, 3016-3 #### [facility] CLIA [id number] [address] #### 76372-7 #### [facility] CLIA [id number] [address] STATES OF [facility] CLIA [id number] [address] [place] ALT With P-5'-P [Catalytic activity/Vol] 22 U/L Normal 10-54 [facility] Comment on above: Order Comment: Speci men Type: BLOOD SPECIMEN Ordering Facility: [facility] Address: [address] [place] [address], [place] [address] Performed By: #### 2 4323-8, 3016-3 #### [facility] CLIA [id number] [address] #### 80122-7 #### [facility] CLIA [id number] [address] STATES OF [facility] CLIA [id number] [address] STATES [facility] Anion gap [Moles/Vol] 16 mmol/L High 8-15 [facility] Comment on above: Order Comment: Speci men Type: BLOOD SPECIMEN Ordering Facility: [facility] Address: [address] [place] [address], [place] [address] Performed By: #### 2 4323-8, 3016-3 #### [facility] CLIA [id number] [address] #### 64342-1 #### [facility] CLIA [id number] [address] STATES OF [facility] CLIA [id number] [place] [address] [place] AST With P-5'-P [Catalytic activity/Vol] 16 U/L Normal 14-40 [facility] Comment on above: Order Comment: Speci men Type: BLOOD SPECIMEN Ordering Facility: [facility] Address: [address] [place] [address] Performed By: #### 2 4323-8, 3016-3 #### [facility] CLIA [id number] [address] [place] #### 44335-5 #### [facility] CLIA [id number] [address] STATES OF [facility] CLIA [id number] 721 [place] [address] [place] Bilirubin [Mass/Vol] 0.2 mg/dL Normal 0.2-1.3 [facility] Comment on above: Order Comment: Speci men Type: BLOOD SPECIMEN Ordering Facility: [facility] Address: [address] [place] [address], [place] [address] Performed By: #### 2 4323-8, 3016-3 #### [facility] CLIA [id number] [address] [place] #### 13162-1 #### [facility] CLIA [id number] 1 [place] [address] [place] [facility] CLIA [id number] [address] [place] [address] [place] Calcium [Mass/Vol] 8.9 mg/dL Normal 8.5-10.2 [facility] Comment on above: Order Comment: Speci men Type: BLOOD SPECIMEN Ordering Facility: [facility] Address: [address] [place] [address], [place] [address] Performed By: #### 2 4323-8, 3016-3 #### [facility] CLIA [id number] [address] [place] #### 22926-4 #### [facility] CLIA [id number] 1 [place] [address] [place] [facility] CLIA [id number] 721 [place] [address] [place] Chloride [Moles/Vol] 88 mmol/L Low 98-107 [facility] Comment on above: Order Comment: Speci men Type: BLOOD SPECIMEN Ordering Facility: [facility] Address: [address] [place] [address], [place] [address] Performed By: #### 2 4323-8, 3016-3 #### [facility] CLIA [id number] 1 [place], [place] [id number] [place] [address] [place] #### 18383-8 #### [facility] CLIA [id number] 1 [place] [address] [place] [facility] CLIA [id number] [address] [place] [address] [place] CO2 [Moles/Vol] 23 mmol/L Normal 22-30 [facility] Comment on above: Order Comment: Speci men Type: BLOOD SPECIMEN Ordering Facility: [facility] Address: [address] [facility], [place] [address] Performed By: #### 2 8, 3 #### [facility] CLIA [id number] [address] [place] #### 28535-3 #### [facility] CLIA [id number] [address] OF [facility] CLIA [id number] [address] [place] [address] [place] Creatinine [Mass/Vol] 0.64 mg/dL Low 0.73-1.22 [facility] Comment on above: Order Comment: Speci men Type: BLOOD SPECIMEN Ordering Facility: [facility] Address: [address] [facility], [place] [address] Performed By: #### 2 4323-8, 3015-3 #### [facility] CLIA [id number] [address] [place] #### 97818-7 #### [facility] CLIA [id number] [address] STATES [place] [facility] CLIA [id number] [address] [place] Creatinine and Glomerular filtration rate.predicted panel (S/P/Bld) 133 mL/min/1.73m??? Normal >=60 [facility] Comment on above: Order Comment: Taiwosimone adrian Type: BLOOD SPECIMEN Ordering Facility: [facility] Address: [address] [place] [address], [place] [address] Result Comment: Tara mated Glomerular Filtration Rate (eGFR) is calculated using the 2020 CKD-EPI creatinine equation. This equation utilizes serum creatinine, sex, and age as parameters. The creatinine assay has traceable calibration to isotope dilution-mass spectrometry. Refer to KDIGO guidelines for clinical interpretation. In patients with unstable renal function, e.g. those with acute kidney injury, the eGFR may not accurately reflect actual GFR. Performed By: #### 2 4323-8, 3016-3 #### [facility] CLIA [id number] [address] #### 35739-7 #### [facility] CLIA [id number] [address] CLIA [id number] [address] [place] [address] [place] Glucose [Mass/Vol] 659 mg/dL High 74-99 [facility] Comment on above: Order Comment: Noemi adrian Type: BLOOD SPECIMEN Ordering Facility: [facility] Address: [address] [place] [address], [place] [address] Result Comment: The [place] Diabetes Association (ADA) provides guidance for cutoff values for fasting glucose and random glucose. The ADA defines fasting as no caloric intake for at least 8 hours. Fasting plasma glucose results between 100 to 125 mg/dL indicate increased risk for diabetes (prediabetes). Fasting plasma glucose results greater than or equal to 126 mg/dL meet the criteria for diagnosis of diabetes. In the absence of unequivocal hyperglycemia, results should be confirmed by repeat testing. In a patient with classic symptoms of hyperglycemia or hyperglycemic crisis, random plasma glucose results greater than or equal to 200 mg/dL meet the criteria for diagnosis of diabetes. Reference: Standards of Medical Care in Diabetes 2016, [place] [employer] Association. Diabetes Care. 2016.39(Suppl 1). Performed By: #### 2 4323-8, 3016-3 #### [facility] CLIA [id number] [address] STATES [place] #### 89755-5 #### [facility] CLIA [id number] 1 [place] [address] [place] [facility] CLIA [id number] [address] [place] [address] [place] Potassium [Moles/Vol] 4.5 mmol/L Normal 3.7-5.1 [facility] Comment on above: Order Comment: Speci men Type: BLOOD SPECIMEN Ordering Facility: [facility] Address: [address] [place] [address] Performed By: #### 2 4323-8, 3016-3 #### [facility] CLIA [id number] [address] [place] #### 51713-1 #### [facility] CLIA [id number] 1 [place] [address] [place] [facility] CLIA [id number] [address] [place] [address] [place] Protein [Mass/Vol] 6.9 g/dL Normal 6.3-8.0 [facility] Comment on above: Order Comment: Speci men Type: BLOOD SPECIMEN Ordering Facility: [facility] Address: [address] [place] [address] Performed By: #### 2 4323-8, 3016-3 #### [facility] CLIA [id number] 1 [place] [address] [place] #### 16416-8 #### [facility] CLIA [id number] 1 [place] [address] [place] [facility] CLIA [id number] [address] [place] [address] [place] Sodium [Moles/Vol] 127 mmol/L Low 136-144 [facility] Comment on above: Order Comment: Speci men Type: BLOOD SPECIMEN Ordering Facility: [facility] Address: [address] [place] [address] Performed By: #### 2 4323-8, 3016-3 #### [facility] CLIA [id number] [address] #### 85775-5 #### [facility] CLIA [id number] [address] STATES OF [facility] CLIA [id number] [address] [place] [address] Urea nitrogen [Mass/Vol] 17 mg/dL Normal 9-24 [facility] Comment on above: Order Comment: Speci men Type: BLOOD SPECIMEN Ordering Facility: [facility] Address: [address] [place] [address] Performed By: #### 2 4323-8, 6-3 #### [facility] CLIA [id number] [address] #### 33263-6 #### [facility] CLIA [id number] [address] STATES [facility] CLIA [id number] [place] [address] Lipid 1996 panelon 5 Cholesterol [Mass/Vol] 177 mg/dL Normal <200 [facility] Comment on above: Order Comment: Speci men Type: BLOOD SPECIMEN Ordering Facility: [facility] Address: [address] [place] [address] Result Comment: <200 mg/dL, Desirable 200-239 mg/dL, Borderline high >239 mg/dL, High Performed By: #### 2 4323-8, 6-3 #### [facility] CLIA [id number] [address] [place] #### 07516-5 #### [facility] CLIA [id number] [address] STATES [facility] [id number] [address] STATES [facility] Cholesterol in HDL [Mass/Vol] 46 mg/dL Normal >39 [facility] Comment on above: Order Comment: Speci men Type: BLOOD SPECIMEN Ordering Facility: [facility] Address: [address] [place] [address] Result Comment: 40-5 9 mg/dL, Acceptable >59 mg/dL, High: Negative risk factor for coronary heart disease <40 mg/dL, Low: Positive risk factor for coronary heart disease Performed By: #### 2 4323-8, 3016-3 #### [facility] CLIA [id number] [address] #### 14236-2 #### [facility] CLIA [id number] [address] CLIA [id number] [address] [place] [address] Cholesterol in LDL [Mass/Vol] 86 mg/dL Normal <100 [facility] Comment on above: Order Comment: Speci men Type: BLOOD SPECIMEN Ordering Facility: [facility] Address: [address] [place] [address] Result Comment: <100 mg/dL, Optimal 100-129 mg/dL, Near optimal/above optimal 130-159 mg/dL, Borderline high 160-189 mg/dL, High >189 mg/dL, Very high Secondary prevention optimal LDL Cholesterol levels are recommended to be < 70 mg/dL Performed By: #### 2 4323-8, 3016-3 #### [facility] CLIA [id number] [address] #### 13340-2 #### [facility] CLIA [id number] [address] OF [facility] CLIA [id number] [address] [place] [address] [place] Cholesterol in LDL/Cholesterol in HDL [Mass ratio] 1.87 {ratio} Normal <2.54 [facility] Comment on above: Order Comment: Speci men Type: BLOOD SPECIMEN Ordering Facility: [facility] Address: [address] [place] [address], [place] [address] Result Comment: Philomena kirkland: 1. National Cholesterol Education Program ATP III Guideline At-A-Glance Quick Desk Reference: National Heart, Lung, and Blood Yulan. National Institutes of Health. 2001: NIH Publication No. 01-3305. 2. An International Atherosclerosis Society position paper: global recommendations for the management of dyslipidemia: executive summary, Atherosclerosis. 2014: 232(2):410-413. Performed By: #### 2 4323-8, 3016-3 #### [facility] CLIA [id number] [address] #### 88994-1 #### [facility] CLIA [id number] [id number] [place] [address] Cholesterol in VLDL [Mass/Vol] 45 mg/dL High <30 [facility] Comment on above: Order Comment: Speci men Type: BLOOD SPECIMEN Ordering Facility: [facility] Address: [address] [place] [address] Performed By: #### 2 4323-8, 3016-3 #### [facility] CLIA [id number] [address] #### 76105-0 #### [facility] CLIA [id number] [address] [id number] [address] [place] [address] Cholesterol non HDL [Mass/Vol] 131 mg/dL High <130 [facility] Comment on above: Order Comment: Speci men Type: BLOOD SPECIMEN Ordering Facility: [facility] Address: [address] [place] [address] [address] Result Comment: <130 mg/dL, Optimal 130-159 mg/dL, Near optimal/above optimal 160-189 mg/dL, Borderline high 190-219 mg/dL, High >219 mg/dL, Very high Secondary prevention optimal non HDL Cholesterol levels are recommended to be <100 mg/dL Performed By: #### 2 4323-8, 6-3 #### [facility] CLIA [id number] [address] #### 62441-6 #### [facility] CLIA [id number] [address] CLIA [id number] [address] Cholesterol.total/Shanon sterol in HDL [Mass ratio] 3.85 {ratio} Normal <5.10 [facility] Comment on above: Order Comment: Speci men Type: BLOOD SPECIMEN Ordering Facility: [facility] Address: [address] [place] [address] Performed By: #### 2 8, 3015-3 #### [facility] CLIA [id number] [address] #### 45957-3 #### [facility] CLIA [id number] [address] CLIA [id number] [place] [address] FASTING TIME 12 hrs Normal [facility] Comment on above: Order Comment: Speci men Type: BLOOD SPECIMEN Ordering Facility: [facility] Address: [address] [place] [address], [place] [address] Performed By: #### 2 4323-8, 6-3 #### [facility] CLIA [id number] [address] #### 23698-3 #### [facility] CLIA [id number] [address] OF [facility] CLIA [id number] [address] [place] [address] [place] Triglyceride [Mass/Vol] 226 mg/dL High <150 [facility] Comment on above: Order Comment: Speci men Type: BLOOD SPECIMEN Ordering Facility: [facility] Address: [address] [place] [address] Result Comment: <150 mg/dL, Normal 150-199 mg/dL, Borderline high 200-499 mg/dL, High >499 mg/dL, Very high Performed By: #### 2 4323-8, 3016-3 #### [facility] CLIA [id number] [address] OF [facility] #### 07113-8 #### [facility] CLIA [id number] [address] [place] [address] STATES OF [facility] CLIA [id number] [address] [place] [address] [place] TSH SerPl-aCncon 10-10-2024 TSH Qn 1.060 m[IU]/L Normal 0.270-4.20 0 [facility] Comment on above: Order Comment: Speci men Type: BLOOD SPECIMEN Ordering Facility: [facility] Address: [address] [place] [address] Performed By: #### 2 4323-8, 3016-3 #### [facility] CLIA [id number] [address] OF [place] #### 55348-3 #### [facility] CLIA [id number] [address] STATES OF [facility] CLIA [id number] [address] [place] [address] [place] Absolute lymphocyte countOrd ered By: Dr. Zarate on 01-03-2023 Lymphocytes Auto (Unsp spec) [#/Vol] 5.11 10*3/uL 0.83-4.51 [facility] percentageOrdered B y: Dr. Zarate on 01-03-2023 Basophils/100 WBC (Bld) 0.6 % 0-1 [facility] Chloride [Moles/Vol] 97 mmol/L 98-107 [facility] Eosinophils/100 WBC (Bld) 3.2 % 0-5 [facility] Glucose [Mass/Vol] 504 mg/dL 74-106 [facility] Comment on above: Glucose result great er than or equal to 200 mg/dLsuggests DIABETES MELLITUS per A.D.A. criteria. Neutrophils (Bld) [#/Vol] 5.5 10*3/uL 2.0-7.7 [facility] Neutrophils/100 WBC (Bld) 45.8 % 47-70 [facility] Potassium [Moles/Vol] 4.7 mmol/L 3.5-5.1 [facility] Sodium [Moles/Vol] 132 mmol/L 136-145 [facility] WBC (Bld) [#/Vol] 12.1 10*3/uL 4.4-11.0 [facility] Blood erythrocytes count (nu mber/volume)Ordered By: Dr. Zarate on 01-03-2023 RBC (Bld) [#/Vol] 4.87 10*6/uL 4.6-6.2 [facility] Blood hemoglobin measurement (mass/volume)Ordered By: Dr. Zarate on 01-03-2023 Hemoglobin (Bld) [Mass/Vol] 12.7 g/dL 13.0-16.5 [facility] Blood lymphocytes/100 leukoc ytesOrdered By: Dr. Zarate on 01-03-2023 Lymphocytes/100 WBC (Bld) 42.3 % 19-41 [facility] Blood manual differential co mment interpretation (narrative result)Ordered By: Dr. Zarate on 01-03-2023 Manual differential comment Gigi (Bld) [Interp] SCANNED [facility] Comment on above: LYMPHOCYTOSIS NOTED Blood monocytes/100 leukocyt esOrdered By: Dr. Zarate on 01-03-2023 Monocytes/100 WBC (Bld) 7.8 % 0-10 [facility] Blood platelet mean volumeOr dered By: Dr. Zarate on 01-03-2023 Platelet mean volume (Bld) [Entitic vol] 10.6 fL 6.2-12.0 [facility] Determination of erythrocyte mean corpuscular volume (MCV)Ordered By: Dr. Zarate on 01-03-2023 MCV (RBC) [Entitic vol] 81.9 fL 80-94 [facility] Glucose Glucometer (BldC) [M ass/Vol]Ordered By: Dr. Zarate on 01-03-2023 Glucose [Mass/Vol] 383 mg/dL 74-106 [facility] Comment on above: MANAGEMENT OF PATIEN T CARE PER NURSING PROTOCOL Hematocrit Auto (Bld) [Volum e fraction]Ordered By: Dr. Zarate on 01-03-2023 Hematocrit (Bld) [Volume fraction] 39.9 % 40-54 [facility] Laboratory - Chemistry and C hemistry - challengeOrdered By: Dr. Zarate on 01-03-2023 CO2 [Moles/Vol] 23.0 mmol/L 21.0-32.0 [facility] Urea nitrogen/Creatinine [Mass ratio] 17.2 mg/mg 10-20 [facility] Laboratory - Hematology and Cell countsOrdered By: Dr. Zarate on 01-03-2023 Erythrocyte distribution width (RBC) [Entitic vol] 41.9 fL 35.1-43.9 [facility] Erythrocyte distribution width (RBC) [Ratio] 14.3 % 11.6-14.6 [facility] Immature granulocytes/100 WBC (Bld) 0.300 % 0.0-0.9 [facility] Comment on above: IG% - Immature Granu locytes (promyelocytes, myelocytes and metamyelocytes) > 1% indicates that a LEFT SHIFT is Present. MCH (RBC) [Entitic mass] 26.1 pg 27.0-32.0 [facility] Nucleated RBC/100 WBC (Bld) [Ratio] 0 % 0-5 [facility] MCHC Auto (RBC) [Mass/Vol]Or dered By: Dr. Zarate on 01-03-2023 MCHC (RBC) [Mass/Vol] 31.8 g/dL 32-36 [facility] No Panel InformationOrdered By: Dr. Zarate on 05-28-2023 Estimated Creatinine Clearance Calc 122.45 ml/min [facility] Estimated GFR (MDRD) Amer 136 mL/min >60 [facility] Comment on above: GFR Calc Estimated GFR (MDRD) Non-Af Amer 113 mL/min >60 [facility] Comment on above: Non- GFR Calc Troponin I High Sensitivity 4 pg/mL 3.0-78.0 [facility] Comment on above: Critical Result(s) C alled at: 23:19:17 01/03/2023 by: MICHAEL COUGHLIN RN (ED) Results read back by same. Please Note: New Test Units and Gender Specific Reference Ranges. For more information see Policy Stat Procedure [place] High Sensitivity Troponin (TNIH) and attachments. Platelets bldOrdered By: Dr. Zarate on 01-03-2023 Platelets (Bld) [#/Vol] 357 10*3/uL 150-450 [facility] Serum or plasma calcium koby urement (mass/volume)Ordered By: Dr. Zarate on 01-03-2023 Calcium [Mass/Vol] 8.6 mg/dL 8.5-10.1 [facility] Serum or plasma creatinine m easurement (mass/volume)Ordered By: Dr. Zarate on 01-03-2023 Creatinine [Mass/Vol] 0.87 mg/dL 0.70-1.30 [facility] Comment on above: The validity of the calculated GFR & GFRAA in patients over 70 years has not been determined. Clinical correlation is essential. Serum or plasma urea nitroge n measurement (mass/volume)Ordered By: Dr. Zarate on 01-03-2023 Urea nitrogen [Mass/Vol] 15 mg/dL 7-18 [facility] Thin prep Papanicolaou smear with manual screeningOrdered By: Dr. Zarate on 01-03-2023 Thin prep Papanicolaou smear with manual screening 12 5-15 [facility] Absolute lymphocyte countOrd ered By: Dr. Lynn on 12-09-2022 Lymphocytes Auto (Unsp spec) [#/Vol] 4.06 10*3/uL 0.83-4.51 [facility] Basophil percentageOrdered B y: Dr. Lynn on 12-09-2022 Basophils/100 WBC (Bld) 0.6 % 0-1 [facility] Chloride [Moles/Vol] 96 mmol/L 98-107 [facility] Eosinophils/100 WBC (Bld) 1.9 % 0-5 [facility] Glucose [Mass/Vol] 396 mg/dL 74-106 [facility] Comment on above: Glucose result great er than or equal to 200 mg/dLsuggests DIABETES MELLITUS per A.D.A. criteria. Neutrophils (Bld) [#/Vol] 4.6 10*3/uL 2.0-7.7 [facility] Neutrophils/100 WBC (Bld) 47.9 % 47-70 [facility] Potassium [Moles/Vol] 5.0 mmol/L 3.5-5.1 [facility] Sodium [Moles/Vol] 133 mmol/L 136-145 [facility] WBC (Bld) [#/Vol] 9.6 10*3/uL 4.4-11.0 [facility] Blood erythrocytes count (nu mber/volume)Ordered By: Dr. Lynn on 12-09-2022 RBC (Bld) [#/Vol] 6.66 10*6/uL 4.6-6.2 [facility] Blood hemoglobin measurement (mass/volume)Ordered By: Dr. Lynn on 12-09-2022 Hemoglobin (Bld) [Mass/Vol] 17.0 g/dL 13.0-16.5 [facility] Blood lymphocytes/100 leukoc ytesOrdered By: Dr. Lynn on 12-09-2022 Lymphocytes/100 WBC (Bld) 42.1 % 19-41 [facility] Blood monocytes/100 leukocyt esOrdered By: Dr. Lynn on 12-09-2022 Monocytes/100 WBC (Bld) 7.3 % 0-10 [facility] Blood platelet mean volumeOr dered By: Dr. Lynn on 12-09-2022 Platelet mean volume (Bld) [Entitic vol] 10.8 fL 6.2-12.0 [facility] Determination of erythrocyte mean corpuscular volume (MCV)Ordered By: Dr. Lynn on 12-09-2022 MCV (RBC) [Entitic vol] 79.4 fL 80-94 [facility] HCO3 (BldA) [Moles/Vol]Order ed By: Dr. Lynn on 12-09-2022 HCO3 (Bld) [Moles/Vol] 21 mmol/L 22-26 [facility] Hematocrit Auto (Bld) [Volum e fraction]Ordered By: Dr. Lynn on 12-09-2022 Hematocrit (Bld) [Volume fraction] 52.9 % 40-54 [facility] Laboratory - Chemistry and C hemistry - challengeOrdered By: Dr. Lynn on 12-09-2022 CO2 [Moles/Vol] 22 mmol/L 23-33 [facility] CO2 [Moles/Vol] 28.0 mmol/L 21.0-32.0 [facility] Natriuretic peptide B (Bld) [Mass/Vol] 2.7 pg/mL 0-100 [facility] Urea nitrogen/Creatinine [Mass ratio] 16.4 mg/mg 10-20 [facility] Laboratory - Hematology and Cell countsOrdered By: Dr. Lynn on 12-09-2022 Erythrocyte distribution width (RBC) [Entitic vol] 38.5 fL 35.1-43.9 [facility] Erythrocyte distribution width (RBC) [Ratio] 13.4 % 11.6-14.6 [facility] Immature granulocytes/100 WBC (Bld) 0.200 % 0.0-0.9 [facility] Comment on above: IG% - Immature Granu locytes (promyelocytes, myelocytes and metamyelocytes) > 1% indicates that a LEFT SHIFT is Present. MCH (RBC) [Entitic mass] 25.5 pg 27.0-32.0 [facility] Nucleated RBC/100 WBC (Bld) [Ratio] 0 % 0-5 [facility] MCHC Auto (RBC) [Mass/Vol]Or dered By: Dr. Lynn on 12-09-2022 MCHC (RBC) [Mass/Vol] 32.1 g/dL 32-36 [facility] No Panel InformationOrdered By: Dr. Lynn on 12-09-2022 Bed Mix Venous Bld PCO2 at Pat Temp 32.1 mmHg 41-51 [facility] Blood Gas Specimen Type JAIDEN [facility] Venous Blood Base Excess -3 mmol/L -1.0-3.5 [facility] D-Dimer Quantitative (PE/DVT) < 0.27 FEU/ug/m 0.27-0.49 [facility] Comment on above: NORMAL D-Dimer level (<0.50) indicates no DVT or PE. Estimated Creatinine Clearance Calc 91.04 ml/min [facility] Estimated GFR (MDRD) Amer 104 mL/min >60 [facility] Comment on above: GFR Calc Estimated GFR (MDRD) Non-Af Amer 86 mL/min >60 [facility] Comment on above: Non- GFR Calc Troponin I High Sensitivity 4 pg/mL 3.0-78.0 [facility] Comment on above: Please Note: New Nayla t Units and Gender Specific Reference Ranges. For more information see Policy Stat Procedure [place]va High Sensitivity Troponin (TNIH) and attachments. PO2 venousOrdered By: Dr. Marry baxter on 12-09-2022 Oxygen (BldV) [Partial pressure] 53 mm[Hg] 25-40 [facility] Platelets bldOrdered By: Dr. Lynn on 12-09-2022 Platelets (Bld) [#/Vol] 405 10*3/uL 150-450 [facility] Serum or plasma acetone koby urement (mass/volume)Ordered By: Dr. Lynn on 12-09-2022 Acetone [Mass/Vol] Negative NEG [facility] Serum or plasma calcium koby urement (mass/volume)Ordered By: Dr. Lynn on 12-09-2022 Calcium [Mass/Vol] 10.6 mg/dL 8.5-10.1 [facility] Serum or plasma creatinine m easurement (mass/volume)Ordered By: Dr. Lynn on 12-09-2022 Creatinine [Mass/Vol] 1.10 mg/dL 0.70-1.30 [facility] Comment on above: The validity of the calculated GFR & GFRAA in patients over 70 years has not been determined. Clinical correlation is essential. Serum or plasma urea nitroge n measurement (mass/volume)Ordered By: Dr. Lynn on 12-09-2022 Urea nitrogen [Mass/Vol] 18 mg/dL 7-18 [facility] Thin prep Papanicolaou smear with manual screeningOrdered By: Dr. Lynn on 12-09-2022 Thin prep Papanicolaou smear with manual screening 9 5-15 [facility] Vital signsOrdered By: Dr. Vicky coello on 12-09-2022 Oxygen saturation in Blood 88 % 50-70 [facility] pH measurementOrdered By: Dr Shin Lynn on 12-09-2022 pH (Unsp spec) 7.43 [pH] 7.32-7.42 [facility] Absolute lymphocyte countOrd ered By: ED PROVIDER on 12-03-2022 Lymphocytes Auto (Unsp spec) [#/Vol] 3.71 10*3/uL 0.83-4.51 [facility] Basophil percentageOrdered B y: ED PROVIDER on 12-03-2022 Basophils/100 WBC (Bld) 0.4 % 0-1 [facility] Eosinophils/100 WBC (Bld) 2.0 % 0-5 [facility] Neutrophils (Bld) [#/Vol] 8.6 10*3/uL 2.0-7.7 [facility] Neutrophils/100 WBC (Bld) 62.3 % 47-70 [facility] WBC (Bld) [#/Vol] 13.8 10*3/uL 4.4-11.0 [facility] Basophil percentageOrdered B y: Dr. Calvillo on 12-03-2022 Chloride [Moles/Vol] 105 mmol/L 98-107 [facility] Glucose [Mass/Vol] 64 mg/dL 74-106 [facility] Potassium [Moles/Vol] 3.6 mmol/L 3.5-5.1 [facility] Sodium [Moles/Vol] 138 mmol/L 136-145 [facility] Blood erythrocytes count (nu mber/volume)Ordered By: ED PROVIDER on 12-03-2022 RBC (Bld) [#/Vol] 5.14 10*6/uL 4.6-6.2 [facility] Blood hemoglobin measurement (mass/volume)Ordered By: ED PROVIDER on 12-03-2022 Hemoglobin (Bld) [Mass/Vol] 13.2 g/dL 13.0-16.5 [facility] Blood lymphocytes/100 leukoc ytesOrdered By: ED PROVIDER on 12-03-2022 Lymphocytes/100 WBC (Bld) 26.9 % 19-41 [facility] Blood monocytes/100 leukocyt esOrdered By: ED PROVIDER on 12-03-2022 Monocytes/100 WBC (Bld) 8.0 % 0-10 [facility] Blood platelet mean volumeOr dered By: ED PROVIDER on 12-03-2022 Platelet mean volume (Bld) [Entitic vol] 10.9 fL 6.2-12.0 [facility] Determination of erythrocyte mean corpuscular volume (MCV)Ordered By: ED PROVIDER on 12-03-2022 MCV (RBC) [Entitic vol] 84.0 fL 80-94 [facility] Hematocrit Auto (Bld) [Volum e fraction]Ordered By: ED PROVIDER on 12-03-2022 Hematocrit (Bld) [Volume fraction] 43.2 % 40-54 [facility] Laboratory - Chemistry and C hemistry - challengeOrdered By: Dr. Calvillo on 12-03-2022 CO2 [Moles/Vol] 28.0 mmol/L 21.0-32.0 [facility] Urea nitrogen/Creatinine [Mass ratio] 16.6 mg/mg 10-20 [facility] Laboratory - Hematology and Cell countsOrdered By: ED PROVIDER on 12-03-2022 Erythrocyte distribution width (RBC) [Entitic vol] 41.1 fL 35.1-43.9 [facility] Erythrocyte distribution width (RBC) [Ratio] 13.4 % 11.6-14.6 [facility] Immature granulocytes/100 WBC (Bld) 0.400 % 0.0-0.9 [facility] Comment on above: IG% - Immature Granu locytes (promyelocytes, myelocytes and metamyelocytes) > 1% indicates that a LEFT SHIFT is Present. MCH (RBC) [Entitic mass] 25.7 pg 27.0-32.0 [facility] Nucleated RBC/100 WBC (Bld) [Ratio] 0 % 0-5 [facility] MCHC Auto (RBC) [Mass/Vol]Or dered By: ED PROVIDER on 12-03-2022 MCHC (RBC) [Mass/Vol] 30.6 g/dL 32-36 [facility] No Panel InformationOrdered By: Dr. Calvillo on 12-03-2022 D-Dimer Quantitative (PE/DVT) 0.40 FEU/ug/m 0.27-0.49 [facility] Comment on above: NORMAL D-Dimer level (<0.50) indicates no DVT or PE. Estimated Creatinine Clearance Calc 159.00 ml/min [facility] Estimated GFR (MDRD) Amer 187 mL/min >60 [facility] Comment on above: GFR Calc Estimated GFR (MDRD) Non-Af Amer 155 mL/min >60 [facility] Comment on above: Non- GFR Calc Troponin I High Sensitivity 3 pg/mL 3.0-78.0 [facility] Comment on above: Please Note: New Nayla t Units and Gender Specific Reference Ranges. For more information see Policy Stat Procedure [place] High Sensitivity Troponin (TNIH) and attachments. Platelets bldOrdered By: ED PROVIDER on 12-03-2022 Platelets (Bld) [#/Vol] 348 10*3/uL 150-450 [facility] Serum or plasma calcium koby urement (mass/volume)Ordered By: Dr. Calvillo on 12-03-2022 Calcium [Mass/Vol] 8.9 mg/dL 8.5-10.1 [facility] Serum or plasma creatinine m easurement (mass/volume)Ordered By: Dr. Calvillo on 12-03-2022 Creatinine [Mass/Vol] 0.66 mg/dL 0.70-1.30 [facility] Comment on above: The validity of the calculated GFR & GFRAA in patients over 70 years has not been determined. Clinical correlation is essential. Serum or plasma urea nitroge n measurement (mass/volume)Ordered By: Dr. Calvillo on 12-03-2022 Urea nitrogen [Mass/Vol] 11 mg/dL 7-18 [facility] Thin prep Papanicolaou smear with manual screeningOrdered By: Dr. Calvillo on 12-03-2022 Thin prep Papanicolaou smear with manual screening 5 5-15 [facility] Absolute lymphocyte countOrd ered By: ED PROVIDER on 11-17-2022 Lymphocytes Auto (Unsp spec) [#/Vol] 4.55 10*3/uL 0.83-4.51 [facility] Basophil percentageOrdered B y: ED PROVIDER on 11-17-2022 Basophils/100 WBC (Bld) 0.5 % 0-1 [facility] Chloride [Moles/Vol] 103 mmol/L 98-107 [facility] Eosinophils/100 WBC (Bld) 2.8 % 0-5 [facility] Glucose [Mass/Vol] 278 mg/dL 74-106 [facility] Comment on above: Glucose result great er than or equal to 200 mg/dLsuggests DIABETES MELLITUS per A.D.A. criteria. Neutrophils (Bld) [#/Vol] 5.8 10*3/uL 2.0-7.7 [facility] Neutrophils/100 WBC (Bld) 49.8 % 47-70 [facility] Potassium [Moles/Vol] 3.8 mmol/L 3.5-5.1 [facility] Sodium [Moles/Vol] 134 mmol/L 136-145 [facility] WBC (Bld) [#/Vol] 11.7 10*3/uL 4.4-11.0 [facility] Blood erythrocytes count (nu mber/volume)Ordered By: ED PROVIDER on 11-17-2022 RBC (Bld) [#/Vol] 5.10 10*6/uL 4.6-6.2 [facility] Blood hemoglobin measurement (mass/volume)Ordered By: ED PROVIDER on 11-17-2022 Hemoglobin (Bld) [Mass/Vol] 13.3 g/dL 13.0-16.5 [facility] Blood lymphocytes/100 leukoc ytesOrdered By: ED PROVIDER on 11-17-2022 Lymphocytes/100 WBC (Bld) 38.9 % 19-41 [facility] Blood monocytes/100 leukocyt esOrdered By: ED PROVIDER on 11-17-2022 Monocytes/100 WBC (Bld) 7.7 % 0-10 [facility] Blood platelet mean volumeOr dered By: ED PROVIDER on 11-17-2022 Platelet mean volume (Bld) [Entitic vol] 10.9 fL 6.2-12.0 [facility] Determination of erythrocyte mean corpuscular volume (MCV)Ordered By: ED PROVIDER on 11-17-2022 MCV (RBC) [Entitic vol] 80.6 fL 80-94 [facility] Hematocrit Auto (Bld) [Volum e fraction]Ordered By: ED PROVIDER on 11-17-2022 Hematocrit (Bld) [Volume fraction] 41.1 % 40-54 [facility] Laboratory - Chemistry and C hemistry - challengeOrdered By: ED PROVIDER on 11-17-2022 CO2 [Moles/Vol] 26.0 mmol/L 21.0-32.0 [facility] Urea nitrogen/Creatinine [Mass ratio] 17.0 mg/mg 10-20 [facility] Laboratory - Hematology and Cell countsOrdered By: ED PROVIDER on 11-17-2022 Erythrocyte distribution width (RBC) [Entitic vol] 37.6 fL 35.1-43.9 [facility] Erythrocyte distribution width (RBC) [Ratio] 12.8 % 11.6-14.6 [facility] Immature granulocytes/100 WBC (Bld) 0.300 % 0.0-0.9 [facility] Comment on above: IG% - Immature Granu locytes (promyelocytes, myelocytes and metamyelocytes) > 1% indicates that a LEFT SHIFT is Present. MCH (RBC) [Entitic mass] 26.1 pg 27.0-32.0 [facility] Nucleated RBC/100 WBC (Bld) [Ratio] 0 % 0-5 [facility] MCHC Auto (RBC) [Mass/Vol]Or dered By: ED PROVIDER on 11-17-2022 MCHC (RBC) [Mass/Vol] 32.4 g/dL 32-36 [facility] No Panel InformationOrdered By: ED PROVIDER on 11-17-2022 Estimated Creatinine Clearance Calc 127.57 ml/min [facility] Estimated GFR (MDRD) Amer 159 mL/min >60 [facility] Comment on above: GFR Calc Estimated GFR (MDRD) Non-Af Amer 131 mL/min >60 [facility] Comment on above: Non- GFR Calc Troponin I High Sensitivity < 3 pg/mL 3.0-78.0 [facility] Comment on above: Please Note: New Nayla t Units and Gender Specific Reference Ranges. For more information see Policy Stat Procedure [place] High Sensitivity Troponin (TNIH) and attachments. Platelets bldOrdered By: ED PROVIDER on 11-17-2022 Platelets (Bld) [#/Vol] 304 10*3/uL 150-450 [facility] Serum or plasma calcium koby urement (mass/volume)Ordered By: ED PROVIDER on 11-17-2022 Calcium [Mass/Vol] 9.1 mg/dL 8.5-10.1 [facility] Serum or plasma creatinine m easurement (mass/volume)Ordered By: ED PROVIDER on 11-17-2022 Creatinine [Mass/Vol] 0.76 mg/dL 0.70-1.30 [facility] Comment on above: The validity of the calculated GFR & GFRAA in patients over 70 years has not been determined. Clinical correlation is essential. Serum or plasma urea nitroge n measurement (mass/volume)Ordered By: ED PROVIDER on 11-17-2022 Urea nitrogen [Mass/Vol] 13 mg/dL 7-18 [facility] Thin prep Papanicolaou smear with manual screeningOrdered By: ED PROVIDER on 11-17-2022 Thin prep Papanicolaou smear with manual screening 5 5-15 [facility] Absolute lymphocyte countOrd ered By: Dr. Palomino on 10-13-2022 Lymphocytes Auto (Unsp spec) [#/Vol] 3.87 10*3/uL 0.83-4.51 [facility] Basophil percentageOrdered B y: Dr. Palomino on 10-13-2022 Basophils/100 WBC (Bld) 0.8 % 0-1 [facility] Chloride [Moles/Vol] 105 mmol/L 98-107 [facility] Eosinophils/100 WBC (Bld) 4.3 % 0-5 [facility] Glucose [Mass/Vol] 243 mg/dL 74-106 [facility] Comment on above: Glucose result great er than or equal to 200 mg/dLsuggests DIABETES MELLITUS per A.D.A. criteria. Neutrophils (Bld) [#/Vol] 3.8 10*3/uL 2.0-7.7 [facility] Neutrophils/100 WBC (Bld) 43.5 % 47-70 [facility] Potassium [Moles/Vol] 3.4 mmol/L 3.5-5.1 [facility] Sodium [Moles/Vol] 140 mmol/L 136-145 [facility] WBC (Bld) [#/Vol] 8.8 10*3/uL 4.4-11.0 [facility] Blood erythrocytes count (nu mber/volume)Ordered By: Dr. Palomino on 10-13-2022 RBC (Bld) [#/Vol] 5.14 10*6/uL 4.6-6.2 [facility] Blood hemoglobin measurement (mass/volume)Ordered By: Dr. Palomino on 10-13-2022 Hemoglobin (Bld) [Mass/Vol] 13.3 g/dL 13.0-16.5 [facility] Blood lymphocytes/100 leukoc ytesOrdered By: Dr. Palomino on 10-13-2022 Lymphocytes/100 WBC (Bld) 44.1 % 19-41 [facility] Blood monocytes/100 leukocyt esOrdered By: Dr. Palomino on 10-13-2022 Monocytes/100 WBC (Bld) 7.2 % 0-10 [facility] Blood platelet mean volumeOr dered By: Dr. Palomino on 10-13-2022 Platelet mean volume (Bld) [Entitic vol] 10.4 fL 6.2-12.0 [facility] Determination of erythrocyte mean corpuscular volume (MCV)Ordered By: Dr. Palomino on 10-13-2022 MCV (RBC) [Entitic vol] 83.7 fL 80-94 [facility] Hematocrit Auto (Bld) [Volum e fraction]Ordered By: Dr. Palomino on 10-13-2022 Hematocrit (Bld) [Volume fraction] 43.0 % 40-54 [facility] Laboratory - Chemistry and C hemistry - challengeOrdered By: Dr. Palomino on 10-13-2022 CO2 [Moles/Vol] 27.0 mmol/L 21.0-32.0 [facility] Urea nitrogen/Creatinine [Mass ratio] 13.8 mg/mg 10-20 [facility] Laboratory - Hematology and Cell countsOrdered By: Dr. Palomino on 10-13-2022 Erythrocyte distribution width (RBC) [Entitic vol] 41.9 fL 35.1-43.9 [facility] Erythrocyte distribution width (RBC) [Ratio] 13.6 % 11.6-14.6 [facility] Immature granulocytes/100 WBC (Bld) 0.100 % 0.0-0.9 [facility] Comment on above: IG% - Immature Granu locytes (promyelocytes, myelocytes and metamyelocytes) > 1% indicates that a LEFT SHIFT is Present. MCH (RBC) [Entitic mass] 25.9 pg 27.0-32.0 [facility] Nucleated RBC/100 WBC (Bld) [Ratio] 0 % 0-5 [facility] MCHC Auto (RBC) [Mass/Vol]Or dered By: Dr. Palomino on 10-13-2022 MCHC (RBC) [Mass/Vol] 30.9 g/dL 32-36 [facility] No Panel InformationOrdered By: Dr. Palomino on 10-13-2022 Estimated Creatinine Clearance Calc 131.33 ml/min [facility] Estimated GFR (MDRD) Amer 169 mL/min >60 [facility] Comment on above: GFR Calc Estimated GFR (MDRD) Non-Af Amer 140 mL/min >60 [facility] Comment on above: Non- GFR Calc Troponin I High Sensitivity 4 pg/mL 3.0-78.0 [facility] Comment on above: Please Note: New Nayla t Units and Gender Specific Reference Ranges. For more information see Policy Stat Procedure [place] High Sensitivity Troponin (TNIH) and attachments. Platelets bldOrdered By: Dr. Palomino on 10-13-2022 Platelets (Bld) [#/Vol] 309 10*3/uL 150-450 [facility] Serum or plasma calcium koby urement (mass/volume)Ordered By: Dr. Palomino on 10-13-2022 Calcium [Mass/Vol] 8.8 mg/dL 8.5-10.1 [facility] Serum or plasma creatinine m easurement (mass/volume)Ordered By: Dr. Palomino on 10-13-2022 Creatinine [Mass/Vol] 0.72 mg/dL 0.70-1.30 [facility] Comment on above: The validity of the calculated GFR & GFRAA in patients over 70 years has not been determined. Clinical correlation is essential. Serum or plasma urea nitroge n measurement (mass/volume)Ordered By: Dr. Palomino on 10-13-2022 Urea nitrogen [Mass/Vol] 10 mg/dL 7-18 [facility] Thin prep Papanicolaou smear with manual screeningOrdered By: Dr. Palomino on 10-13-2022 Thin prep Papanicolaou smear with manual screening 8 5-15 [facility] Absolute lymphocyte countOrd ered By: Dr. Reed on 08-24-2022 Lymphocytes Auto (Unsp spec) [#/Vol] 5.98 10*3/uL 0.83-4.51 [facility] Basophil percentageOrdered B y: Dr. Reed on 08-24-2022 Basophils/100 WBC (Bld) 0.3 % 0-1 [facility] Chloride [Moles/Vol] 103 mmol/L 98-107 [facility] Eosinophils/100 WBC (Bld) 5.5 % 0-5 [facility] Glucose [Mass/Vol] 52 mg/dL 74-106 [facility] Neutrophils (Bld) [#/Vol] 3.8 10*3/uL 2.0-7.7 [facility] Neutrophils/100 WBC (Bld) 30.5 % 47-70 [facility] Potassium [Moles/Vol] 3.0 mmol/L 3.5-5.1 [facility] Sodium [Moles/Vol] 142 mmol/L 136-145 [facility] WBC (Bld) [#/Vol] 12.6 10*3/uL 4.4-11.0 [facility] Blood erythrocytes count (nu mber/volume)Ordered By: Dr. Reed on 08-24-2022 RBC (Bld) [#/Vol] 5.40 10*6/uL 4.6-6.2 [facility] Blood hemoglobin measurement (mass/volume)Ordered By: Dr. Reed on 08-24-2022 Hemoglobin (Bld) [Mass/Vol] 14.0 g/dL 13.0-16.5 [facility] Blood lymphocytes/100 leukoc ytesOrdered By: Dr. Reed on 08-24-2022 Lymphocytes/100 WBC (Bld) 47.4 % 19-41 [facility] Blood manual differential co mment interpretation (narrative result)Ordered By: Dr. Reed on 08-24-2022 Manual differential comment Gigi (Bld) [Interp] SCANNED [facility] Blood monocytes/100 leukocyt esOrdered By: Dr. Reed on 08-24-2022 Monocytes/100 WBC (Bld) 16.0 % 0-10 [facility] Blood platelet mean volumeOr dered By: Dr. Reed on 08-24-2022 Platelet mean volume (Bld) [Entitic vol] 10.5 fL 6.2-12.0 [facility] Determination of erythrocyte mean corpuscular volume (MCV)Ordered By: Dr. Reed on 08-24-2022 MCV (RBC) [Entitic vol] 81.5 fL 80-94 [facility] Hematocrit Auto (Bld) [Volum e fraction]Ordered By: Dr. Reed on 08-24-2022 Hematocrit (Bld) [Volume fraction] 44.0 % 40-54 [facility] Laboratory - Chemistry and C hemistry - challengeOrdered By: Dr. Reed on 08-24-2022 CO2 [Moles/Vol] 32.0 mmol/L 21.0-32.0 [facility] Urea nitrogen/Creatinine [Mass ratio] 16.8 mg/mg 10-20 [facility] Laboratory - Hematology and Cell countsOrdered By: Dr. Reed on 08-24-2022 Erythrocyte distribution width (RBC) [Entitic vol] 40.7 fL 35.1-43.9 [facility] Erythrocyte distribution width (RBC) [Ratio] 14.0 % 11.6-14.6 [facility] Immature granulocytes/100 WBC (Bld) 0.300 % 0.0-0.9 [facility] Comment on above: IG% - Immature Granu locytes (promyelocytes, myelocytes and metamyelocytes) > 1% indicates that a LEFT SHIFT is Present. MCH (RBC) [Entitic mass] 25.9 pg 27.0-32.0 [facility] Nucleated RBC/100 WBC (Bld) [Ratio] 0 % 0-5 [facility] MCHC Auto (RBC) [Mass/Vol]Or dered By: Dr. Reed on 08-24-2022 MCHC (RBC) [Mass/Vol] 31.8 g/dL 32-36 [facility] Comment on above: Delta: 33.6 on 08/20 No Panel InformationOrdered By: Dr. Reed on 08-24-2022 Estimated Creatinine Clearance Calc 143.27 ml/min [facility] Estimated GFR (MDRD) Amer 190 mL/min >60 [facility] Comment on above: GFR Calc Estimated GFR (MDRD) Non-Af Amer 157 mL/min >60 [facility] Comment on above: Non- GFR Calc Reactive Lymphocytes 1+ [facility] Platelets bldOrdered By: Dr. Reed on 08-24-2022 Platelets (Bld) [#/Vol] 492 10*3/uL 150-450 [facility] Review by pathologistOrdered By: Dr. Reed on 08-24-2022 Pathologist review Gigi (Unsp spec) [Interp] Louisa wiseman [facility] Pathologist review Gigi (Unsp spec) [Interp] Reviewed [facility] Comment on above: Previous reported re sult: Louisa wiseman Edited by: ARGENIS on 08/26/22:0938Leukocytosis. Thrombocytosis.Clinical correlation necessary.Herson Olivas M.D. 08/26/22 AMENDED REPORT 08/26/22 0938 PATH REV previously reported as: Louisa wiseman Serum or plasma calcium koby urement (mass/volume)Ordered By: Dr. Reed on 08-24-2022 Calcium [Mass/Vol] 9.4 mg/dL 8.5-10.1 [facility] Serum or plasma creatinine m easurement (mass/volume)Ordered By: Dr. Reed on 08-24-2022 Creatinine [Mass/Vol] 0.66 mg/dL 0.70-1.30 [facility] Comment on above: The validity of the calculated GFR & GFRAA in patients over 70 years has not been determined. Clinical correlation is essential. Serum or plasma urea nitroge n measurement (mass/volume)Ordered By: Dr. Reed on 08-24-2022 Urea nitrogen [Mass/Vol] 11 mg/dL 02-23 [facility] Thin prep Papanicolaou smear with manual screeningOrdered By: Dr. Reed on 08-24-2022 Thin prep Papanicolaou smear with manual screening 7 12-21 [facility] Absolute lymphocyte countOrd ered By: Dr. Cruz on 08-20-2022 Lymphocytes Auto (Unsp spec) [#/Vol] 3.61 10*3/uL 0.83-4.51 [facility] Basophil percentageOrdered B y: Dr. Cruz on 08-20-2022 Basophils/100 WBC (Bld) 0.2 % 0-1 [facility] Chloride [Moles/Vol] 104 mmol/L 98-107 [facility] Eosinophils/100 WBC (Bld) 0.2 % 0-5 [facility] Glucose [Mass/Vol] 162 mg/dL 74-106 [facility] Comment on above: Fasting Glucose resu lt greater than or equal to 126 mg/dL suggests DIABETES MELLITUS per A.D.A. criteria. Neutrophils (Bld) [#/Vol] 7.8 10*3/uL 2.0-7.7 [facility] Neutrophils/100 WBC (Bld) 60.1 % 47-70 [facility] Potassium [Moles/Vol] 3.0 mmol/L 3.5-5.1 [facility] Sodium [Moles/Vol] 141 mmol/L 136-145 [facility] WBC (Bld) [#/Vol] 13.0 10*3/uL 4.4-11.0 [facility] Blood erythrocytes count (nu mber/volume)Ordered By: Dr. Cruz on 08-20-2022 RBC (Bld) [#/Vol] 4.34 10*6/uL 4.6-6.2 [facility] Blood hemoglobin measurement (mass/volume)Ordered By: Dr. Cruz on 08-20-2022 Hemoglobin (Bld) [Mass/Vol] 11.7 g/dL 13.0-16.5 [facility] Blood lymphocytes/100 leukoc ytesOrdered By: Dr. Cruz on 08-20-2022 Lymphocytes/100 WBC (Bld) 27.7 % 19-41 [facility] Blood monocytes/100 leukocyt esOrdered By: Dr. Cruz on 08-20-2022 Monocytes/100 WBC (Bld) 11.4 % 0-10 [facility] Blood platelet mean volumeOr dered By: Dr. Cruz on 08-20-2022 Platelet mean volume (Bld) [Entitic vol] 10.1 fL 6.2-12.0 [facility] Determination of erythrocyte mean corpuscular volume (MCV)Ordered By: Dr. Cruz on 08-20-2022 MCV (RBC) [Entitic vol] 80.2 fL 80-94 [facility] Glucose Glucometer (BldC) [M ass/Vol]Ordered By: Dr. Cruz on 08-20-2022 Glucose [Mass/Vol] 120 mg/dL 74-106 [facility] Comment on above: MANAGEMENT OF PATIEN T CARE PER NURSING PROTOCOL Hematocrit Auto (Bld) [Volum e fraction]Ordered By: Dr. Cruz on 08-20-2022 Hematocrit (Bld) [Volume fraction] 34.8 % 40-54 [facility] Laboratory - Chemistry and C hemistry - challengeOrdered By: Dr. Cruz on 08-20-2022 CO2 [Moles/Vol] 31.0 mmol/L 21.0-32.0 [facility] Urea nitrogen/Creatinine [Mass ratio] 18.1 mg/mg 10-20 [facility] Laboratory - Hematology and Cell countsOrdered By: Dr. Cruz on 08-20-2022 Erythrocyte distribution width (RBC) [Entitic vol] 42.3 fL 35.1-43.9 [facility] Erythrocyte distribution width (RBC) [Ratio] 14.5 % 11.6-14.6 [facility] Immature granulocytes/100 WBC (Bld) 0.400 % 0.0-0.9 [facility] Comment on above: IG% - Immature Granu locytes (promyelocytes, myelocytes and metamyelocytes) > 1% indicates that a LEFT SHIFT is Present. MCH (RBC) [Entitic mass] 27.0 pg 27.0-32.0 [facility] Nucleated RBC/100 WBC (Bld) [Ratio] 0 % 0-5 [facility] MCHC Auto (RBC) [Mass/Vol]Or dered By: Dr. Cruz on 08-20-2022 MCHC (RBC) [Mass/Vol] 33.6 g/dL 32-36 [facility] No Panel InformationOrdered By: Dr. Cruz on 08-20-2022 Estimated Creatinine Clearance Calc 189.05 ml/min [facility] Estimated GFR (MDRD) Amer 232 mL/min >60 [facility] Comment on above: GFR Calc Estimated GFR (MDRD) Non-Af Amer 191 mL/min >60 [facility] Comment on above: Non- GFR Calc Platelets bldOrdered By: Dr. Cruz on 08-20-2022 Platelets (Bld) [#/Vol] 254 10*3/uL 150-450 [facility] Serum or plasma calcium koby urement (mass/volume)Ordered By: Dr. Cruz on 08-20-2022 Calcium [Mass/Vol] 8.0 mg/dL 8.5-10.1 [facility] Serum or plasma creatinine m easurement (mass/volume)Ordered By: Dr. Cruz on 08-20-2022 Creatinine [Mass/Vol] 0.55 mg/dL 0.70-1.30 [facility] Comment on above: The validity of the calculated GFR & GFRAA in patients over 70 years has not been determined. Clinical correlation is essential. Serum or plasma urea nitroge n measurement (mass/volume)Ordered By: Dr. Cruz on 08-20-2022 Urea nitrogen [Mass/Vol] 10 mg/dL 7-18 [facility] Thin prep Papanicolaou smear with manual screeningOrdered By: Dr. Cruz on 08-20-2022 Thin prep Papanicolaou smear with manual screening 6 5-15 [facility] Throat Streptococcus pyogene s antigen detection by immunofluorescenceOrdered By: Dr. Cruz on 08-20-2022 S. pyogenes Ag IF Ql (Throat) [facility] Review by pathologistOrdered By: Dr. Cruz on 08-19-2022 Pathologist review Gigi (Unsp spec) [Interp] Reviewed [facility] Comment on above: Previous reported re sult: Louisa wiseman Edited by: RGOOD on 08/20/22:930Neutrophilic leukocytosis.Clinical correlation necessary.Herson Olivas M.D. 08/20/22 AMENDED REPORT 08/20/22 0931 PATH REV previously reported as: Louisa wiseman Basophil percentageOrdered B y: Dr. Handy on 08-18-2022 Lactate [Moles/Vol] 1.2 mmol/L 0.4-2.0 [facility] Basophil percentage 7.9 mg/dL 2.5-4.9 [facility] Basophil percentageOrdered B y: Dr. Cruz on 08-18-2022 Basophil percentage 0 SEEN /hpf 0-5 [facility] Bilirubin [Mass/Vol] 0.70 mg/dL 0.20-1.00 [facility] Comment on above: For patients on eltr ombopag therapy, use of Dimension Alva TBIL is not recommended. Protein [Mass/Vol] 7.2 g/dL 6.4-8.2 [facility] Bilirubin Test strip Ql (U)O rdered By: Dr. Cruz on 08-18-2022 Bilirubin Ql (U) Negative Negative [facility] Blood manual differential co mment interpretation (narrative result)Ordered By: Dr. Handy on 08-18-2022 Manual differential comment Gigi (Bld) [Interp] SCANNED [facility] Direct bilirubinOrdered By: Dr. Cruz on 08-18-2022 Bilirubin.direct [Mass/Vol] 0.13 mg/dL 0.00-0.30 [facility] HCO3 (BldA) [Moles/Vol]Order ed By: Dr. Cruz on 08-18-2022 HCO3 (Bld) [Moles/Vol] 4 mmol/L 22- [facility] Ketones Test strip Ql (U)Ord ered By: Dr. Cruz on 08-18-2022 Ketones Ql (U) 150 mg/dl Negative [facility] Comment on above: CRITICAL VALUE *HCRI TICAL VALUE VERIFIED. CALLED TO JOSE CARLOS ROGERS (ICU)08/18/22 1516 Walt Hoff.RESULTS READ BACK BY SAME. Laboratory - Chemistry and C hemistry - challengeOrdered By: Dr. Cruz on 08-18-2022 ALP [Catalytic activity/Vol] 178 U/L 45-117 [facility] ALT [Catalytic activity/Vol] 18 U/L 16-61 [facility] Globulin (S) [Mass/Vol] 4.0 g/dL 2.2-4.2 [facility] Laboratory - Chemistry and C hemistry - challengeOrdered By: Dr. Handy on 08-18-2022 Lipase [Catalytic activity/Vol] 34 U/L 73-393 [facility] Magnesium [Mass/Vol] 3.2 mg/dL 1.6-2.6 [facility] Laboratory - Microbiology an d Antimicrobial susceptibilityOrdered By: Dr. Cruz on 08-18-2022 SARS-CoV-2 (COVID-19) RNA LM+probe Ql (Unsp spec) Not detected Not Detect [facility] Comment on above: Normal Reference Ran ge: Not DetectedMethod:(RT-PCR) real-time reverse transcriptase PCRLuminex ISAAC Instrument*The Food and Drug Administration (FDA) has issued an Emergency Use Authorization (EAU) for the ISAAC SARS-CoV-2 Assay for the rapid detection of the virus that causes COVID-19. This test has been validated, but the FDAs independent review of this validation is pending.*Negative results do not preclude infection and should not be used as the sole basis for treatment or patient management. Optimum specimen types and timing for peak viral levels during infections caused by SARS-CoV-2 have not been determined. Collection of multiple specimens from the same patient may be necessary to detect the virus. The possibility of a false negative result should be considered if the patient has clinical presentation or has had recent exposure. Respiratory pathogens DNA and RNA 12b panel LM+probe (Unsp spec) [facility] Mucus LM Ql (Urine sed)Order ed By: Dr. Cruz on 08-18-2022 Mucus Ql (Urine sed) 0 SEEN /hpf [facility] Nitrite Test strip Ql (U)Ord ered By: Dr. Cruz on 08-18-2022 Nitrite Ql (U) Negative Negative [facility] No Panel InformationOrdered By: Dr. Cruz on 08-18-2022 Bed Mix Venous Bld PCO2 at Pat Temp 13.9 mmHg 41-51 [facility] Bld Gas Crit Called To/Read Back By Yes [facility] Blood Gas Notified Time 10:17:05 [facility] Blood Gas Notified Whom anna marie Medina [facility] Blood Gas Specimen Type JAIDEN [facility] Oxygen Delivery Device Room Air [facility] Venous Blood Base Excess -25 mmol/L -1.0-3.5 [facility] Venous Blood Total Carbon Dioxide < 5 mmol/L 23-33 [facility] PO2 venousOrdered By: Dr. David guillory on 01-10-2023 Oxygen (BldV) [Partial pressure] 64 mm[Hg] 25-40 [facility] Protein Test strip Ql (U)Ord ered By: Dr. Cruz on 08-18-2022 Protein Ql (U) 15 mg/dl Negative [facility] Serum or plasma acetone koby urement (mass/volume)Ordered By: Dr. Handy on 08-18-2022 Acetone [Mass/Vol] LARGE NEG [facility] Serum or plasma albumin koby urement (mass/volume)Ordered By: Dr. Cruz on 08-18-2022 Albumin [Mass/Vol] 3.2 g/dL 3.2-5.0 [facility] Squamous epithelial cells de tection in urine sediment by light microscopyOrdered By: Dr. Cruz on 08-18-2022 Epithelial cells.squamous LM Ql (Urine sed) 0 SEEN /hpf 0-5 [facility] Thin prep Papanicolaou smear with manual screeningOrdered By: Dr. Cruz on 08-18-2022 Thin prep Papanicolaou smear with manual screening 3 U/L 15-37 [facility] Urine blood detectionOrdered By: Dr. Cruz on 08-18-2022 RBC Ql (U) Negative Negative [facility] RBC Ql (U) 0 SEEN /hpf 0-5 [facility] Urine clarityOrdered By: Dr. Cruz on 08-18-2022 Clarity (U) Clear Clear [facility] Urine color determinationOrd ered By: Dr. Cruz on 08-18-2022 Color (U) Straw Yellow [facility] Urine glucose detectionOrder ed By: Dr. Cruz on 08-18-2022 Glucose Ql (U) 1000 mg/dl Normal [facility] Urine leukocyte esterase det ection by dipstickOrdered By: Dr. Cruz on 08-18-2022 Leukocyte esterase Test strip Ql (U) Negative Negative [facility] Urine pHOrdered By: Dr. Karla green on 08-18-2022 pH (U) 5.0 [pH] 5.0 - 8.0 [facility] Urine sediment bacteria coun t by microscopy (number/high power field)Ordered By: Dr. Cruz on 08-18-2022 Bacteria LM.HPF (Urine sed) [#/Area] 0 /[HPF] None Seen [facility] Urine specific gravity measu rementOrdered By: Dr. Cruz on 08-18-2022 Specific gravity (U) [Rel density] 1.020 1.002-1.03 0 [facility] Urobilinogen Auto test strip Ql (U)Ordered By: Dr. Cruz on 08-18-2022 Urobilinogen Ql (U) Normal mg/dl Normal [facility] Vital signsOrdered By: Dr. Bladimir hernandez on 08-18-2022 Oxygen saturation in Blood 84 % 50-70 [facility] Whole blood hemoglobin A1c/t otal hemoglobin ratio (mass fraction)Ordered By: Dr. Handy on 08-18-2022 HbA1c (Bld) [Mass fraction] 10.7 % 3.8-5.6 [facility] Comment on above: Normal < 5.7 % Predi abetic 5.7 - 6.4 % Diabetic >or= 6.5 % Please note range changes. pH measurementOrdered By: Dr Shin Cruz on 08-18-2022 pH (Unsp spec) 7.10 [pH] 7.32-7.42 [facility] Absolute lymphocyte countOrd ered By: Lourdes Metz on 07-07-2022 Lymphocytes Auto (Unsp spec) [#/Vol] 1.75 10*3/uL 0.83-4.51 [facility] Basophil percentageOrdered B y: Lourdes Metz on 07-07-2022 Basophils/100 WBC (Bld) 0.4 % 0-1 [facility] Chloride [Moles/Vol] 95 mmol/L 98-107 [facility] Eosinophils/100 WBC (Bld) 0.4 % 0-5 [facility] Glucose [Mass/Vol] 376 mg/dL 74-106 [facility] Comment on above: Glucose result great er than or equal to 200 mg/dLsuggests DIABETES MELLITUS per A.D.A. criteria. Neutrophils (Bld) [#/Vol] 4.7 10*3/uL 2.0-7.7 [facility] Neutrophils/100 WBC (Bld) 62.7 % 47-70 [facility] Potassium [Moles/Vol] 3.6 mmol/L 3.5-5.1 [facility] Sodium [Moles/Vol] 133 mmol/L 136-145 [facility] WBC (Bld) [#/Vol] 7.5 10*3/uL 4.4-11.0 [facility] Blood erythrocytes count (nu mber/volume)Ordered By: Lourdes Metz on 07-07-2022 RBC (Bld) [#/Vol] 5.38 10*6/uL 4.6-6.2 [facility] Blood hemoglobin measurement (mass/volume)Ordered By: Lourdes Metz on 07-07-2022 Hemoglobin (Bld) [Mass/Vol] 14.3 g/dL 13.0-16.5 [facility] Blood lymphocytes/100 leukoc ytesOrdered By: Lourdes Metz on 07-07-2022 Lymphocytes/100 WBC (Bld) 23.2 % 19-41 [facility] Blood monocytes/100 leukocyt esOrdered By: Lourdes Metz on 07-07-2022 Monocytes/100 WBC (Bld) 13.0 % 0-10 [facility] Blood platelet mean volumeOr dered By: Lourdes Metz on 07-07-2022 Platelet mean volume (Bld) [Entitic vol] 11.2 fL 6.2-12.0 [facility] Determination of erythrocyte mean corpuscular volume (MCV)Ordered By: Lourdes Metz on 07-07-2022 MCV (RBC) [Entitic vol] 81.0 fL 80-94 [facility] Glucose Glucometer (BldC) [M ass/Vol]Ordered By: Dr. Mcclain on 07-07-2022 Glucose [Mass/Vol] 158 mg/dL 74-106 [facility] Comment on above: MANAGEMENT OF PATIEN T CARE PER NURSING PROTOCOL Hematocrit Auto (Bld) [Volum e fraction]Ordered By: Lourdes Metz on 07-07-2022 Hematocrit (Bld) [Volume fraction] 43.6 % 40-54 [facility] Influenza virus A and B and SARS-CoV-2 (COVID-19) Ag panel - Upper respiratory specimOrdered By: Lourdes Metz on 07-07-2022 SARS-CoV-2 & FLU Antigen (Rapid) SARS-CoV-2 (COVID 19) [facility] Laboratory - Chemistry and C hemistry - challengeOrdered By: Lourdes Metz on 07-07-2022 CO2 [Moles/Vol] 29.0 mmol/L 21.0-32.0 [facility] Urea nitrogen/Creatinine [Mass ratio] 10.0 mg/mg 10-20 [facility] Laboratory - Hematology and Cell countsOrdered By: Lourdes Metz on 07-07-2022 Erythrocyte distribution width (RBC) [Entitic vol] 41.0 fL 35.1-43.9 [facility] Erythrocyte distribution width (RBC) [Ratio] 14.0 % 11.6-14.6 [facility] Immature granulocytes/100 WBC (Bld) 0.300 % 0.0-0.9 [facility] Comment on above: IG% - Immature Granu locytes (promyelocytes, myelocytes and metamyelocytes) > 1% indicates that a LEFT SHIFT is Present. MCH (RBC) [Entitic mass] 26.6 pg 27.0-32.0 [facility] Nucleated RBC/100 WBC (Bld) [Ratio] 0 % 0-5 [facility] MCHC Auto (RBC) [Mass/Vol]Or dered By: Lourdes Metz on 07-07-2022 MCHC (RBC) [Mass/Vol] 32.8 g/dL 32-36 [facility] No Panel InformationOrdered By: Lourdes Metz on 07-07-2022 D-Dimer Quantitative (PE/DVT) 0.28 FEU/ug/m 0.27-0.49 [facility] Comment on above: NORMAL D-Dimer level (<0.50) indicates no DVT or PE. Estimated Creatinine Clearance Calc 109.25 ml/min [facility] Estimated GFR (MDRD) Amer 117 mL/min >60 [facility] Comment on above: GFR Calc Estimated GFR (MDRD) Non-Af Amer 97 mL/min >60 [facility] Comment on above: Non- GFR Calc Troponin I High Sensitivity 4 pg/mL 3.0-78.0 [facility] Comment on above: Please Note: New Nayla t Units and Gender Specific Reference Ranges. For more information see Policy Stat Procedure [place] High Sensitivity Troponin (TNIH) and attachments. Platelets bldOrdered By: Graham muñozeleonoradarin Metz on 07-07-2022 Platelets (Bld) [#/Vol] 260 10*3/uL 150-450 [facility] Serum or plasma calcium koby urement (mass/volume)Ordered By: Lourdes Metz on 07-07-2022 Calcium [Mass/Vol] 8.8 mg/dL 8.5-10.1 [facility] Serum or plasma creatinine m easurement (mass/volume)Ordered By: Lourdes Metz on 07-07-2022 Creatinine [Mass/Vol] 1.00 mg/dL 0.70-1.30 [facility] Comment on above: The validity of the calculated GFR & GFRAA in patients over 70 years has not been determined. Clinical correlation is essential. Serum or plasma urea nitroge n measurement (mass/volume)Ordered By: Lourdes Metz on 07-07-2022 Urea nitrogen [Mass/Vol] 10 mg/dL 7-18 [facility] Thin prep Papanicolaou smear with manual screeningOrdered By: Lourdes Metz on 07-07-2022 Thin prep Papanicolaou smear with manual screening 9 5-15 [facility] Glucose Glucometer (BldC) [M ass/Vol]Ordered By: Dr. Zarate on 07-01-2022 Glucose [Mass/Vol] 85 mg/dL 74-106 [facility] Comment on above: MANAGEMENT OF PATIEN T CARE PER NURSING PROTOCOL Serum or plasma acetone koby urement (mass/volume)Ordered By: Dr. Zarate on 07-01-2022 Acetone [Mass/Vol] MODERATE NEG [facility] Absolute lymphocyte countOrd ered By: Dr. Zarate on 06-30-2022 Lymphocytes Auto (Unsp spec) [#/Vol] 4.64 10*3/uL 0.83-4.51 [facility] Basophil percentageOrdered B y: Dr. Zarate on 06-30-2022 Basophils/100 WBC (Bld) 0.8 % 0-1 [facility] Chloride [Moles/Vol] 97 mmol/L 98-107 [facility] Eosinophils/100 WBC (Bld) 5.2 % 0-5 [facility] Glucose [Mass/Vol] 569 mg/dL 74-106 [facility] Comment on above: Critical Result(s) C alled at: 23:51:55 06/30/2022 by: Jorge A Tamayo TO CURT HORN RN (ED) Results read back by same.Glucose result greater than or equal to 200 mg/dLsuggests DIABETES MELLITUS per A.D.A. criteria. Neutrophils (Bld) [#/Vol] 5.9 10*3/uL 2.0-7.7 [facility] Neutrophils/100 WBC (Bld) 48.9 % 47-70 [facility] Potassium [Moles/Vol] 4.2 mmol/L 3.5-5.1 [facility] Sodium [Moles/Vol] 134 mmol/L 136-145 [facility] WBC (Bld) [#/Vol] 12.1 10*3/uL 4.4-11.0 [facility] Blood erythrocytes count (nu mber/volume)Ordered By: Dr. Zarate on 06-30-2022 RBC (Bld) [#/Vol] 5.32 10*6/uL 4.6-6.2 [facility] Blood hemoglobin measurement (mass/volume)Ordered By: Dr. Zarate on 06-30-2022 Hemoglobin (Bld) [Mass/Vol] 14.0 g/dL 13.0-16.5 [facility] Blood lymphocytes/100 leukoc ytesOrdered By: Dr. Zarate on 06-30-2022 Lymphocytes/100 WBC (Bld) 38.4 % 19-41 [facility] Blood monocytes/100 leukocyt esOrdered By: Dr. Zarate on 06-30-2022 Monocytes/100 WBC (Bld) 6.0 % 0-10 [facility] Blood platelet mean volumeOr dered By: Dr. Zarate on 06-30-2022 Platelet mean volume (Bld) [Entitic vol] 10.6 fL 6.2-12.0 [facility] Determination of erythrocyte mean corpuscular volume (MCV)Ordered By: Dr. Zarate on 06-30-2022 MCV (RBC) [Entitic vol] 80.3 fL 80-94 [facility] Hematocrit Auto (Bld) [Volum e fraction]Ordered By: Dr. Zarate on 06-30-2022 Hematocrit (Bld) [Volume fraction] 42.7 % 40-54 [facility] Laboratory - Chemistry and C hemistry - challengeOrdered By: Dr. Zarate on 06-30-2022 CO2 [Moles/Vol] 22.0 mmol/L 21.0-32.0 [facility] Urea nitrogen/Creatinine [Mass ratio] 15.8 mg/mg 10-20 [facility] Laboratory - Hematology and Cell countsOrdered By: Dr. Zarate on 06-30-2022 Erythrocyte distribution width (RBC) [Entitic vol] 39.7 fL 35.1-43.9 [facility] Erythrocyte distribution width (RBC) [Ratio] 13.7 % 11.6-14.6 [facility] Immature granulocytes/100 WBC (Bld) 0.700 % 0.0-0.9 [facility] Comment on above: IG% - Immature Granu locytes (promyelocytes, myelocytes and metamyelocytes) > 1% indicates that a LEFT SHIFT is Present. MCH (RBC) [Entitic mass] 26.3 pg 27.0-32.0 [facility] Nucleated RBC/100 WBC (Bld) [Ratio] 0 % 0-5 [facility] MCHC Auto (RBC) [Mass/Vol]Or dered By: Dr. Zarate on 06-30-2022 MCHC (RBC) [Mass/Vol] 32.8 g/dL 32-36 [facility] No Panel InformationOrdered By: Dr. Zarate on 06-30-2022 D-Dimer Quantitative (PE/DVT) < 0.27 FEU/ug/m 0.27-0.49 [facility] Comment on above: NORMAL D-Dimer level (<0.50) indicates no DVT or PE. Estimated Creatinine Clearance Calc 97.16 ml/min [facility] Estimated GFR (MDRD) Amer 95 mL/min >60 [facility] Comment on above: GFR Calc Estimated GFR (MDRD) Non-Af Amer 78 mL/min >60 [facility] Comment on above: Non- GFR Calc Troponin I High Sensitivity 4 pg/mL 3.0-78.0 [facility] Comment on above: Please Note: New Nayla t Units and Gender Specific Reference Ranges. For more information see Policy Stat Procedure [place] High Sensitivity Troponin (TNIH) and attachments. Platelets bldOrdered By: Dr. Zarate on 06-30-2022 Platelets (Bld) [#/Vol] 456 10*3/uL 150-450 [facility] Serum or plasma calcium koby urement (mass/volume)Ordered By: Dr. Zarate on 06-30-2022 Calcium [Mass/Vol] 8.8 mg/dL 8.5-10.1 [facility] Serum or plasma creatinine m easurement (mass/volume)Ordered By: Dr. Zarate on 06-30-2022 Creatinine [Mass/Vol] 1.20 mg/dL 0.70-1.30 [facility] Comment on above: The validity of the calculated GFR & GFRAA in patients over 70 years has not been determined. Clinical correlation is essential. Serum or plasma urea nitroge n measurement (mass/volume)Ordered By: Dr. Zarate on 06-30-2022 Urea nitrogen [Mass/Vol] 19 mg/dL 7-18 [facility] Thin prep Papanicolaou smear with manual screeningOrdered By: Dr. Zarate on 06-30-2022 Thin prep Papanicolaou smear with manual screening 15 5-15 [facility] Absolute lymphocyte counton 03-03-2022 Lymphocytes Auto (Unsp spec) [#/Vol] 3.87 10*3/uL 0.83-4.51 [facility] Work Phone: Basophil percentageon 2021 Basophils/100 WBC (Bld) 0.3 % 0-1 [facility] Work Phone: Chloride [Moles/Vol] 113 mmol/L 98-107 [facility] Work Phone: Eosinophils/100 WBC (Bld) 1.7 % 0-5 [facility] Work Phone: Glucose [Mass/Vol] 71 mg/dL 74-106 [facility] Work Phone: Neutrophils (Bld) [#/Vol] 8.9 10*3/uL 2.0-7.7 [facility] Work Phone: Neutrophils/100 WBC (Bld) 62.2 % 47-70 [facility] Work Phone: Potassium [Moles/Vol] 3.6 mmol/L 3.5-5.1 [facility] Work Phone: Sodium [Moles/Vol] 142 mmol/L 136-145 [facility] Work Phone: WBC (Bld) [#/Vol] 14.3 10*3/uL 4.4-11.0 [facility] Work Phone: Blood erythrocytes count (nu mber/volume)on 03-03-2022 RBC (Bld) [#/Vol] 4.58 10*6/uL 4.6-6.2 [facility] Work Phone: Blood hemoglobin measurement (mass/volume)on 03-03-2022 Hemoglobin (Bld) [Mass/Vol] 12.6 g/dL 13.0-16.5 [facility] Work Phone: Blood lymphocytes/100 leukoc yteson 03-03-2022 Lymphocytes/100 WBC (Bld) 27.0 % 19-41 [facility] Work Phone: Blood monocytes/100 leukocyt eson 03-03-2022 Monocytes/100 WBC (Bld) 8.2 % 0-10 [facility] Work Phone: Blood platelet mean volumeon 03-03-2022 Platelet mean volume (Bld) [Entitic vol] 9.4 fL 6.2-12.0 [facility] Work Phone: Determination of erythrocyte mean corpuscular volume (MCV)on 03-03-2022 MCV (RBC) [Entitic vol] 83.6 fL 80-94 [facility] Work Phone: Comment on above: Delta: 91.7 on 03/02-1026 Glucose Glucometer (BldC) [M ass/Vol]on 03-03-2022 Glucose [Mass/Vol] 224 mg/dL 74-106 [facility] Work Phone: Comment on above: MANAGEMENT OF PATIEN T CARE PER NURSING PROTOCOL Hematocrit Auto (Bld) [Volum e fraction]on 03-03-2022 Hematocrit (Bld) [Volume fraction] 38.3 % 40-54 [facility] Work Phone: Laboratory - Chemistry and C hemistry - challengeon 03-03-2022 CO2 [Moles/Vol] 21.0 mmol/L 21.0-32.0 [facility] Work Phone: Urea nitrogen/Creatinine [Mass ratio] 14.9 mg/mg 10-20 [facility] Work Phone: Laboratory - Hematology and Cell countson 03-03-2022 Erythrocyte distribution width (RBC) [Entitic vol] 43.5 fL 35.1-43.9 [facility] Work Phone: Erythrocyte distribution width (RBC) [Ratio] 14.3 % 11.6-14.6 [facility] Work Phone: Immature granulocytes/100 WBC (Bld) 0.600 % 0.0-0.9 [facility] Work Phone: Comment on above: IG% - Immature Granu locytes (promyelocytes, myelocytes and metamyelocytes) > 1% indicates that a LEFT SHIFT is Present. MCH (RBC) [Entitic mass] 27.5 pg 27.0-32.0 [facility] Work Phone: Nucleated RBC/100 WBC (Bld) [Ratio] 0 % 0-5 [facility] Work Phone: MCHC Auto (RBC) [Mass/Vol]on 03-03-2022 MCHC (RBC) [Mass/Vol] 32.9 g/dL 32-36 [facility] Work Phone: Comment on above: Delta: 29.6 on 03/02-6 No Panel Informationon 03-03 Estimated Creatinine Clearance Calc 111.61 ml/min [facility] Work Phone: Estimated GFR (MDRD) Amer 150 mL/min >60 [facility] Work Phone: Comment on above: GFR Calc Estimated GFR (MDRD) Non-Af Amer 124 mL/min >60 [facility] Work Phone: Comment on above: Non- GFR Calc Platelets bldon 03-03-2022 Platelets (Bld) [#/Vol] 345 10*3/uL 150-450 [facility] Work Phone: Serum or plasma calcium koby urement (mass/volume)on 03-03-2022 Calcium [Mass/Vol] 7.9 mg/dL 8.5-10.1 [facility] Work Phone: Serum or plasma creatinine m easurement (mass/volume)on 03-03-2022 Creatinine [Mass/Vol] 0.81 mg/dL 0.70-1.30 [facility] Work Phone: Comment on above: The validity of the calculated GFR & GFRAA in patients over 70 years has not been determined. Clinical correlation is essential. Serum or plasma urea nitroge n measurement (mass/volume)on 03-03-2022 Urea nitrogen [Mass/Vol] 12 mg/dL 7-18 [facility] Work Phone: Thin prep Papanicolaou smear with manual screeningon 03-03-2022 Thin prep Papanicolaou smear with manual screening 8 5-15 [facility] Work Phone: Absolute lymphocyte counton 2022 Lymphocytes Auto (Unsp spec) [#/Vol] 4.87 10*3/uL 0.83-4.51 [facility] Work Phone: Basophil percentageon 2021 Basophil percentage 0 SEEN /hpf 0-[address] [facility] [address] [facility] Work Phone: Basophil percentage 9.1 mg/dL 2.5-4.9 [facility] Work Phone: Comment on above: Critical Result(s) C alled at: 11:23:45 2022 by: Renita Butt to Jd. Results read back by same. Basophils/100 WBC (Bld) 0.9 % 0-1 [facility] Work Phone: Bilirubin [Mass/Vol] 0.60 mg/dL 0.20-1.00 [facility] Work Phone: Comment on above: For patients on eltr ombopag therapy, use of Dimension [place] TBIL is not recommended. Chloride [Moles/Vol] 86 mmol/L 98-107 [facility] Work Phone: Eosinophils/100 WBC (Bld) 0.8 % 0-5 [facility] Work Phone: Glucose [Mass/Vol] 852 mg/dL 74-106 [facility] Work Phone: Comment on above: Critical Result(s) C alled at: 11:23:45 2022 by: Renita Butt to Jd. Results read back by same.Glucose result greater than or equal to 200 mg/dLsuggests DIABETES MELLITUS per A.D.A. criteria. Neutrophils (Bld) [#/Vol] 11.8 10*3/uL 2.0-7.7 [facility] Work Phone: Neutrophils/100 WBC (Bld) 64.6 % 47-70 [facility] Work Phone: Potassium [Moles/Vol] 5.2 mmol/L 3.5-5.1 [facility] Work Phone: Protein [Mass/Vol] 9.0 g/dL 6.4-8.2 [facility] Work Phone: Sodium [Moles/Vol] 128 mmol/L 136-145 [facility] Work Phone: WBC (Bld) [#/Vol] 18.3 10*3/uL 4.4-11.0 [facility] Work Phone: Bilirubin Test strip Ql (U)o n 2022 Bilirubin Ql (U) Negative Negative [facility] Work Phone: Blood erythrocytes count (nu mber/volume)on 2022 RBC (Bld) [#/Vol] 6.11 10*6/uL 4.6-6.2 [facility] Work Phone: Blood hemoglobin measurement (mass/volume)on 2022 Hemoglobin (Bld) [Mass/Vol] 16.6 g/dL 13.0-16.5 [facility] Work Phone: Blood lymphocytes/100 leukoc yteson 2022 Lymphocytes/100 WBC (Bld) 26.6 % 19-41 [facility] Work Phone: Blood monocytes/100 leukocyt eson 2022 Monocytes/100 WBC (Bld) 5.5 % 0-10 [facility] Work Phone: Blood platelet mean volumeon 2022 Platelet mean volume (Bld) [Entitic vol] 10.7 fL 6.2-12.0 [facility] Work Phone: Determination of erythrocyte mean corpuscular volume (MCV)on 2022 MCV (RBC) [Entitic vol] 91.7 fL 80-94 [facility] Work Phone: Hematocrit Auto (Bld) [Volum e fraction]on 2022 Hematocrit (Bld) [Volume fraction] 56.0 % 40-54 [facility] Work Phone: Ketones Test strip Ql (U)on 2022 Ketones Ql (U) 150 mg/dl Negative [facility] Work Phone: Comment on above: CRITICAL VALUE VERIF IED. CALLED TO ODETTE MCADAMS RN (ICU)03/02/22 1845 Ney Navarro.RESULTS READ BACK BY SAME . CRITICAL VALUE *H Laboratory - Chemistry and C hemistry - challengeon 2022 ALP [Catalytic activity/Vol] 288 U/L 45-117 [facility] Work Phone: ALT [Catalytic activity/Vol] 62 U/L 16-61 [facility] Work Phone: CK [Catalytic activity/Vol] 44 U/L 39-308 [facility] Work Phone: CO2 [Moles/Vol] 10.0 mmol/L 21.0-32.0 [facility] Work Phone: Globulin (S) [Mass/Vol] 4.9 g/dL 2.2-4.2 [facility] Work Phone: Magnesium [Mass/Vol] 2.6 mg/dL 1.6-2.6 [facility] Work Phone: Urea nitrogen/Creatinine [Mass ratio] 17.3 mg/mg 10-20 [facility] Work Phone: Laboratory - Hematology and Cell countson 2022 Erythrocyte distribution width (RBC) [Entitic vol] 47.6 fL 35.1-43.9 [facility] Work Phone: Erythrocyte distribution width (RBC) [Ratio] 14.2 % 11.6-14.6 [facility] Work Phone: Immature granulocytes/100 WBC (Bld) 1.600 % 0.0-0.9 [facility] Work Phone: Comment on above: IG% - Immature Granu locytes (promyelocytes, myelocytes and metamyelocytes) > 1% indicates that a LEFT SHIFT is Present. MCH (RBC) [Entitic mass] 27.2 pg 27.0-32.0 [facility] Work Phone: Nucleated RBC/100 WBC (Bld) [Ratio] 0 % 0-5 [facility] Work Phone: MCHC Auto (RBC) [Mass/Vol]on 2022 MCHC (RBC) [Mass/Vol] 29.6 g/dL 32-36 [facility] Work Phone: Mucus LM Ql (Urine sed)on Mucus Ql (Urine sed) 0 SEEN /hpf [facility] Work Phone: Nitrite Test strip Ql (U)on 2022 Nitrite Ql (U) Negative Negative [facility] Work Phone: No Panel Informationon 03-02 Estimated Creatinine Clearance Calc 60.37 ml/min [facility] Work Phone: Estimated GFR (MDRD) Amer 67 mL/min >60 [facility] Work Phone: Comment on above: GFR Calc Estimated GFR (MDRD) Non-Af Amer 56 mL/min >60 [facility] Work Phone: Comment on above: Non- GFR Calc Platelets bldon 2022 Platelets (Bld) [#/Vol] 518 10*3/uL 150-450 [facility] Work Phone: Protein Test strip Ql (U)on 2022 Protein Ql (U) 30 mg/dl Negative [facility] Work Phone: Serum or plasma acetone koby urement (mass/volume)on 2022 Acetone [Mass/Vol] MODERATE NEG [facility] Work Phone: Serum or plasma albumin koby urement (mass/volume)on 2022 Albumin [Mass/Vol] 4.1 g/dL 3.2-5.0 [facility] Work Phone: Serum or plasma albumin/glob ulin mass ratioon 2022 Albumin/Globulin [Mass ratio] 0.8 {ratio} 0.9-2.4 [facility] Work Phone: Serum or plasma calcium koby urement (mass/volume)on 2022 Calcium [Mass/Vol] 9.4 mg/dL 8.5-10.1 [facility] Work Phone: Serum or plasma creatinine m easurement (mass/volume)on 2022 Creatinine [Mass/Vol] 1.62 mg/dL 0.70-1.30 [facility] Work Phone: Comment on above: The validity of the calculated GFR & GFRAA in patients over 70 years has not been determined. Clinical correlation is essential. Serum or plasma urea nitroge n measurement (mass/volume)on 2022 Urea nitrogen [Mass/Vol] 28 mg/dL 7-18 [facility] Work Phone: Squamous epithelial cells de tection in urine sediment by light microscopyon 2022 Epithelial cells.squamous LM Ql (Urine sed) 0 SEEN /hpf 0-5 [facility] Work Phone: Thin prep Papanicolaou smear with manual screeningon 2022 Thin prep Papanicolaou smear with manual screening 16 U/L 15-37 [facility] Work Phone: Thin prep Papanicolaou smear with manual screening 32 5-15 [facility] Work Phone: Urine blood detectionon - RBC Ql (U) Negative Negative [facility] Work Phone: RBC Ql (U) 0 SEEN /hpf 0-5 [facility] Work Phone: Urine clarityon 2022 Clarity (U) Clear Clear [facility] Work Phone: Urine coarse granular cast d etectionon 2022 Coarse Granular Casts LM Ql (Urine sed) 5-10 SEEN /lpf 0-5 /lpf [facility] Work Phone: Urine color determinationon 2022 Color (U) Yellow Yellow [facility] Work Phone: Urine glucose detectionon Glucose Ql (U) 1000 mg/dl Normal [facility] Work Phone: Urine leukocyte esterase det ection by dipstickon 2022 Leukocyte esterase Test strip Ql (U) Negative Negative [facility] Work Phone: Urine pHon 2022 pH (U) 5.0 [pH] 5.0 - 8.0 [facility] Work Phone: Urine sediment bacteria coun t by microscopy (number/high power field)on 2022 Bacteria LM.HPF (Urine sed) [#/Area] 1 /[HPF] None Seen [facility] Work Phone: Urine specific gravity measu rementon 2022 Specific gravity (U) [Rel density] 1.025 1.002-1.03 0 [facility] Work Phone: Urobilinogen Auto test strip Ql (U)on 2022 Urobilinogen Ql (U) Normal mg/dl Normal [facility] Work Phone: CT HEAD W/O CONTRASTon 04-21 CT HEAD W/O CONTRAST Performed at [facility] APPROVED BY: Elkin Mays MD EXAMINATION: CT HEAD W/O CONTRAST CLINICAL HISTORY: Follow-up intracranial hemorrhage. TECHNIQUE: Serial axial images without IV contrast were obtained from the vertex to the foramen magnum.MQ: [id number] CT Dose-Length Product (DLP): 1390.4 mGy*cmCT Dose Reduction Employed: No dose reduction techniques required COMPARISON: 03/20/2018 RESULT: Post-operative change: None. Acute change: No evidence of an acute infarct or other acute parenchymal process. Hemorrhage: No evidence of acute intracranial hemorrhage. Interval resorption of the previously noted left parietal convexity subdural hematoma. Mass Lesion / Mass Effect: There is no evidence of an intracranial mass or extraaxial fluid collection. No significant mass effect. Chronic change: None apparent. Parenchyma: There is no significant volume loss. The brain parenchyma is otherwise within normal limits for age. Ventricles: The ventricles are within normal limits of size and configuration for age. Paranasal sinuses and skull base: The visualized paranasal sinuses are grossly clear. The skull base and imaged soft tissues are unremarkable. IMPRESSION: No acute findings radiographically. Interval resorption of the previously noted left parietal convexity subdural hematoma. Normal [facility] ALLIED HEALTHon 03-23-2018 ALLIED HEALTH HNO ID: [id number]: Mary Lind (Chaplain)ervice: Spiritual CareAuthor Type: ChaplainType: Allied HealthFiled: 03/23/2018 10:44 AMNote Text: SPIRITUALCARESpiritual Care Visit- Brief NoteName: Una Alexandra AleaMRN: [id number]: March 23, 2018Notes: Delivered scrubs for pt Cha plain Signature: Claudy Lind contact the [facility] Care Department:Please call [phone] or Page the On-Call Program/Music Director at pager [phone] you for the opportunity to be of service.This is an electronically created document.IF PRINTED, PLEASE DO NOT REMOVE FROM THE CHART OR MODIFY PRINTED COPY. Normal [facility] Basic Panelon 03-23-2018 Creatinine mass conc 0.39 mg/dL Low 0.67-1.17 [facility] Comment on above: Performed By: #### A PTT ####[facility] [place] [address] Glucose mass conc 270 mg/dL High 70-99 [facility] Comment on above: Performed By: #### A PTT ####[facility] [place], [place] [address] Urea nitrogen mass conc 8 mg/dL Normal 7-18 [facility] Comment on above: Performed By: #### A PTT ####[facility] [place] [address] Anion gap 3 molar conc 14 mmol/L Normal 8-16 [facility] Comment on above: Performed By: #### A PTT ####[facility] [place], [place] [address] Calcium mass conc 7.6 mg/dL Low 8.5-10.1 [facility] Comment on above: Performed By: #### A PTT ####[facility] [place], [place] [address] CO2 molar conc 26 mmol/L Normal 21-32 [facility] Comment on above: Performed By: #### A PTT ####[facility] [place] [address] Chloride molar conc 97 mmol/L Low 98-107 [facility] Comment on above: Performed By: #### A PTT ####[place] [address] Potassium molar conc 3.7 mmol/L Normal 3.5-5.1 [facility] Comment on above: Performed By: #### A PTT ####[facility] [place], [place] [address] Sodium molar conc 133 mmol/L Low 136-145 [facility] Comment on above: Performed By: #### A PTT ####[facility] [place], [place] [address] CASE MANAGEMon 03-23-2018 CASE MANAGEM HNO ID: [id number]: Heena GastelumRn) Divya RNService: Care ManagementAuthor Type: Registered NurseType: Care Mgt Progress NoteFiled: 03/23/2018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 <= 20 mg/L Ratio (U) Test not performed mg/g CRE <30 mg/g CRE [facility] Work Phone: Urine, creatinine 38.10 mg/dL Invalid Interpretation Code NO RANGE EST. [facility] Work Phone: Urine, microalbumin < 5.0 mg/L Invalid Interpretation Code NO RANGE EST. [facility] Work Phone: Office Visit: Diabetes- [facility]on 11-12-2016 Adolescent depression screening assessment Adolescent depression screening assessment Invalid Interpretation Code [facility] Work Phone: Adult depression screening assessment Adolescent depression screening assessment [facility] Work Phone: Documentation of current medications (procedure) Done Invalid Interpretation Code [facility] Work Phone: Fall risk assessment No Invalid Interpretation Code [facility] Work Phone: Protein mass conc yes [facility] Work Phone: Smoking cessation education (procedure) yes Invalid Interpretation Code [facility] Work Phone: Tobacco smoking status NHIS Current Invalid Interpretation Code [facility] Work Phone: Tobacco smoking status NHIS Current every day smoker [facility] Work Phone: Tobacco use [facility] Current every day smoker Invalid Interpretation Code [facility] Work Phone: Influenza virus A and B and SARS-CoV-2 (COVID-19) Ag panel - Upper respiratory specim SARS-CoV-2 & FLU Antigen (Rapid) SARS-CoV-2 (COVID 19) [facility] Work Phone: Laboratory - Microbiology an d Antimicrobial susceptibility Respiratory pathogens DNA and RNA 12b panel LM+probe (Unsp spec) [facility] Work Phone: Throat Streptococcus pyogene s antigen detection by immunofluorescence S. pyogenes Ag IF Ql (Throat) [facility] Work Phone: Vital Signs Date Time Vital Sign Value Performing Clinician Facility 01-26-2025 17:27-0400 Body temperature 97.8 [degF] Dr. Keisha Handy DO Work Phone: [facility] 01-26-2025 17:27-0400 Diastolic blood pressure 95 mm[Hg] Dr. Keisha Handy DO Work Phone: [facility] 01-26-2025 17:27-0400 Heart rate 97 /min Dr. Keisha Handy DO Work Phone: [facility] 01-26-2025 17:27-0400 Respiratory rate 14 /min Dr. Keisha Handy DO Work Phone: [facility] 01-26-2025 17:27-0400 SaO2% (BldA) [Mass fraction] 99 % Dr. Keisha Handy DO Work Phone: 5(678)802-083934 [place] [address] 01-26-2025 17:27-0400 Systolic blood pressure 125 mm[Hg] Dr. Keisha Handy DO Work Phone: 1(410)423-908834 [place] [address] 01-26-2025 11:24-0400 Body height 182.[address] Keisha Handy DO Work Phone: 3(452)731-861934 [place] [address] 01-26-2025 11:24-0400 Body mass index (BMI) [Ratio] 18.6 kg/m2 Dr. Keisha Handy DO Work Phone: 6(504)820-965334 [place] [address] 01-26-2025 11:24-0400 Body weight 62.[address] Keisha Handy DO Work Phone: 0(841)405-667234 [place] [address] 12-14-2024 02:20-0400 Body temperature 98.4 [degF] Dr. Keisha Handy DO Work Phone: 2(636)484-772334 [place] [address] 12-14-2024 02:20-0400 Diastolic blood pressure 68 mm[Hg] Dr. Keisha Handy DO Work Phone: 0(935)179-680734 [place] [address] 12-14-2024 02:20-0400 Heart rate 113 /min Dr. Keisha Handy DO Work Phone: 2(535)009-462134 [place] [address] 12-14-2024 02:20-0400 Respiratory rate 14 /min Dr. Keisha Handy DO Work Phone: 1(842)560-068434 [place] [address] 12-14-2024 02:20-0400 SaO2% (BldA) [Mass fraction] 96 % Dr. Keisha Handy DO Work Phone: 8(016)283-245116 [place] [address] 12-14-2024 02:20-0400 Systolic blood pressure 112 mm[Hg] Dr. Keisha Handy DO Work Phone: 3(518)518-655016 [place] [address] 12-13-2024 21:12-0400 Body height 187.[address] Keisha Handy DO Work Phone: 0(399)575-049734 [place] [address] 12-13-2024 21:12-0400 Body mass index (BMI) [Ratio] 14.6 kg/m2 Dr. Keisha Handy DO Work Phone: 4(354)941-503634 [place] [address] 12-13-2024 21:12-0400 Body weight 51.[address] Keisha Handy DO Work Phone: 8(969)084-213434 [place] [address] 12-12-2024 12:36-0400 Body mass index (BMI) [Ratio] 18.6 kg/m2 Dr. Keisha Handy DO Work Phone: 4(890)477-199634 [place] [address] 12-12-2024 12:36-0400 Body temperature 97 [degF] Dr. Keisha Handy DO Work Phone: 6(467)330-488734 [place] [address] 12-12-2024 12:36-0400 Body weight 62.[address] Keisha Handy DO Work Phone: 9(352)576-058734 [place] [address] 12-12-2024 12:36-0400 Diastolic blood pressure 82 mm[Hg] Dr. Keisha Handy DO Work Phone: 7(313)195-066934 [place] [address] 12-12-2024 12:36-0400 Heart rate 116 /min Dr. Keisha Handy DO Work Phone: 3(907)192-517134 [place] [address] 12-12-2024 12:36-0400 Respiratory rate 18 /min Dr. Keisha Handy DO Work Phone: 8(221)530-855334 [place] [address] 12-12-2024 12:36-0400 SaO2% (BldA) [Mass fraction] 100 % Dr. Keisha Handy DO Work Phone: 3(333)332-892034 [place] [address] 12-12-2024 12:36-0400 Systolic blood pressure 126 mm[Hg] Dr. Keisha Handy DO Work Phone: 9(745)575-044434 [place] [address] 11-11-2024 19:18-0400 Body temperature 97.8 [degF] Dr. Keisha Handy DO Work Phone: 5(201)370-952516 [place] [address] 11-11-2024 19:18-0400 Diastolic blood pressure 86 mm[Hg] Dr. Keisha Handy DO Work Phone: 3(040)314-407334 [place] [address] 11-11-2024 19:18-0400 Heart rate 102 /min Dr. Keisha Handy DO Work Phone: 1(770)076-447416 [place] [address] 11-11-2024 19:18-0400 Respiratory rate 18 /min Dr. Keisha Handy DO Work Phone: 6(728)557-690816 [place] [address] 11-11-2024 19:18-0400 SaO2% (BldA) [Mass fraction] 98 % Dr. Keisha Handy DO Work Phone: 4(511)227-690816 [place] [address] 11-11-2024 19:18-0400 Systolic blood pressure 128 mm[Hg] Dr. Keisha Handy DO Work Phone: 8(987)227-670034 [place] [address] 11-11-2024 17:46-0400 Body height 182.[address] Keisha Handy DO Work Phone: 6(379)911-682134 [place] [address] 11-11-2024 17:46-0400 Body mass index (BMI) [Ratio] 18.7 kg/m2 Dr. Keisha Handy DO Work Phone: 5(719)099-986116 [place] [address] 11-11-2024 17:46-0400 Body weight 62.[address] Keisha Handy DO Work Phone: 6(205)595-867416 [place] [address] 10-19-2024 05:19-0400 Body temperature 97.8 [degF] Dr. Keisha Handy DO Work Phone: 0(537)153-873916 [place] [address] 10-19-2024 05:19-0400 Diastolic blood pressure 81 mm[Hg] Dr. Keisha Handy DO Work Phone: 6(586)862-712516 [place] [address] 10-19-2024 05:19-0400 Heart rate 95 /min Dr. Keisha Handy DO Work Phone: 7(611)911-627416 [place] [address] 10-19-2024 05:19-0400 Respiratory rate 16 /min Dr. Keisha Handy DO Work Phone: 7(706)465-507616 [place] [address] 10-19-2024 05:19-0400 SaO2% (BldA) [Mass fraction] 99 % Dr. Keisha Handy DO Work Phone: [facility] 10-19-2024 05:19-0400 Systolic blood pressure 127 mm[Hg] Dr. Keisha Handy DO Work Phone: [facility] 10-19-2024 00:09-0400 Body height 182.[address] Keisha Handy DO Work Phone: [facility] 10-19-2024 00:09-0400 Body mass index (BMI) [Ratio] 19.5 kg/m2 Dr. Keisha Handy DO Work Phone: [facility] 10-19-2024 00:09-0400 Body weight 65.[address] Keisha Handy DO Work Phone: [facility] 01-04-2023 00:24-0400 Diastolic blood pressure 81 mm[Hg] [facility] 01-04-2023 00:24-0400 Heart rate 87 /min MD Bright [facility] 01-04-2023 00:24-0400 Respiratory rate 17 /min MD Bright [facility] 01-04-2023 00:24-0400 SaO2% (BldA) [Mass fraction] 100 % MD Bright [facility] 01-04-2023 00:24-0400 Systolic blood pressure 117 mm[Hg] MD Deangelo Noel [facility] 01-03-2023 22:18-0400 Body height 182.88 cm MD Deangelo Noel [facility] 01-03-2023 22:18-0400 Body mass index (BMI) [Ratio] 19.9 kg/m2 [facility] 01-03-2023 22:18-0400 Body temperature 96.6 [degF] [facility]-03-[facility]23 22:18-0400 Body weight 66.7 kg MD Deangelo Noel [facility] 12-09-2022 21:44-0400 Heart rate 110 /min MD Deangelo Noel [facility] 12-09-2022 21:44-0400 Respiratory rate 18 /min [facility] 12-09-2022 20:08-0400 SaO2% (BldA) [Mass fraction] 99 % MD Bright [facility] 12-09-2022 18:04-0400 Body mass index (BMI) [Ratio] 20.4 kg/m2 MD Deangelo Noel [facility] 12-09-2022 18:04-0400 Body weight 62.7 kg MD [facility] 12-09-2022 17:39-0400 Body height 175.26 cm MD Bright [facility] 12-09-2022 17:39-0400 Body temperature 97.9 [degF] MD Bright [facility] 12-09-2022 17:39-0400 Diastolic blood pressure 63 mm[Hg] MD Bright [facility] 12-09-2022 17:39-0400 Systolic blood pressure 94 mm[Hg] MD Bright [facility] 12-03-2022 22:45-0400 Diastolic blood pressure 84 mm[Hg] MD Bright [facility] 12-03-2022 22:45-0400 Heart rate 104 /min MD Bright [facility] 12-03-2022 22:45-0400 Respiratory rate 18 /min [facility] 12-03-2022 22:45-0400 SaO2% (BldA) [Mass fraction] 97 % MD Bright [facility] 12-03-2022 22:45-0400 Systolic blood pressure 127 mm[Hg] [facility] 12-03-2022 20:03-0400 Body height 172.72 cm MD [facility] 12-03-2022 20:03-0400 Body mass index (BMI) [Ratio] 22 kg/m2 MD Deangelo Noel [facility] 12-03-2022 20:03-0400 Body temperature 97.9 [degF] MD Deangelo Noel [facility] 12-03-2022 20:03-0400 Body weight 65.7 kg MD Bright [facility] 11-17-2022 14:00-0400 Heart rate 115 /min MD Bright [facility] 11-17-2022 14:00-0400 Respiratory rate 13 /min MD Brigth [facility] 11-17-2022 14:00-0400 SaO2% (BldA) [Mass fraction] 97 % MD Bright [facility] 11-17-2022 00:52-0400 Body mass index (BMI) [Ratio] 18.1 kg/m2 MD Bright [facility] 11-17-2022 00:52-0400 Body weight 60.7 kg MD Bright [facility] 11-17-2022 00:10-0400 Body height 182.88 cm MD Bright [facility] 11-17-2022 00:10-0400 Body temperature 97.9 [degF] MD Bright [facility] 11-17-2022 00:10-0400 Diastolic blood pressure 62 mm[Hg] MD Bright [facility] 11-17-2022 00:10-0400 Systolic blood pressure 120 mm[Hg] MD Bright [facility] 10-13-2022 06:21-0500 Diastolic blood pressure 90 mm[Hg] MD Bright [facility] 10-13-2022 06:21-0500 Systolic blood pressure 129 mm[Hg] MD Bright [facility] 10-13-2022 03:49-0500 Body height 162.56 cm MD Bright [facility] 10-13-2022 03:49-0500 Body mass index (BMI) [Ratio] 24.4 kg/m2 MD Bright [facility] 10-13-2022 03:49-0500 Body temperature 97.7 [degF] MD Bright [facility] 10-13-2022 03:49-0500 Body weight 64.6 kg MD Bright [facility] 10-13-2022 03:49-0500 Heart rate 120 /min MD Bright [facility] 10-13-2022 03:49-0500 Respiratory rate 14 /min MD Bright [facility] 10-13-2022 03:49-0500 SaO2% (BldA) [Mass fraction] 99 % MD Bright [facility] 08-24-2022 23:11-0500 Diastolic blood pressure 82 mm[Hg] MD Bright [facility] 08-24-2022 23:11-0500 Heart rate 120 /min MD Bright [facility] 08-24-2022 23:11-0500 SaO2% (BldA) [Mass fraction] 99 % MD Bright [facility] 08-24-2022 23:11-0500 Systolic blood pressure 126 mm[Hg] MD Bright [facility] 08-24-2022 21:15-0500 Body temperature 98 [degF] MD Bright [facility] 08-24-2022 21:15-0500 Respiratory rate 16 /min MD Bright [facility] 08-24-2022 21:12-0500 Body height 162.56 cm MD Bright [facility] 08-24-2022 21:12-0500 Body mass index (BMI) [Ratio] 24.7 kg/m2 MD Bright [facility] 08-24-2022 21:12-0500 Body weight 65.4 kg MD Bright [facility] 08-20-2022 14:36-0500 Body temperature 97.8 [degF] MD Bright [facility] 08-20-2022 14:36-0500 Diastolic blood pressure 77 mm[Hg] MD Bright [facility] 08-20-2022 14:36-0500 Heart rate 108 /min MD Bright [facility] 08-20-2022 14:36-0500 Respiratory rate 16 /min MD Bright [facility] 08-20-2022 14:36-0500 SaO2% (BldA) [Mass fraction] 97 % MD Bright [facility] 08-20-2022 14:36-0500 Systolic blood pressure 111 mm[Hg] [facility] 08-20-2022 06:00-0500 Body weight 64.6 kg MD Bright [facility] 08-19-2022 09:33-0500 Body height 182.88 cm MD Bright [facility] Work Phone: 08-18-2022 15:00-0500 Inhaled oxygen flow rate 2 L/min [facility] 08-18-2022 11:46-0500 Body mass index (BMI) [Ratio] 20.3 kg/m2 MD Bright [facility] 07-07-2022 20:35-0500 Diastolic blood pressure 93 mm[Hg] MD Bright [facility] 07-07-2022 20:35-0500 Heart rate 114 /min MD Bright [facility] 07-07-2022 20:35-0500 Respiratory rate 15 /min MD Bright [facility] 07-07-2022 20:35-0500 SaO2% (BldA) [Mass fraction] 96 % [facility] 07-07-2022 20:35-0500 Systolic blood pressure 127 mm[Hg] MD Bright [facility] 07-07-2022 14:41-0500 Body mass index (BMI) [Ratio] 23.3 kg/m2 MD Bright [facility] 07-07-2022 14:41-0500 Body temperature 98 [degF] MD Bright [facility] 07-07-2022 14:41-0500 Body weight 69.42 kg MD Bright [facility] 07-01-2022 03:13-0500 Diastolic blood pressure 85 mm[Hg] MD Bright [facility] 07-01-2022 03:13-0500 Heart rate 135 /min MD Bright [facility] 07-01-2022 03:13-0500 Respiratory rate 16 /min MD Bright [facility] 07-01-2022 03:13-0500 SaO2% (BldA) [Mass fraction] 100 % MD Bright [facility] 07-01-2022 03:13-0500 Systolic blood pressure 123 mm[Hg] MD Bright [facility] 06-30-2022 22:31-0500 Body temperature 97.4 [degF] MD Bright [facility] 06-30-2022 22:26-0500 Body height 177.8 cm MD Bright [facility] Work Phone: 06-30-2022 22:26-0500 Body mass index (BMI) [Ratio] 23.1 kg/m2 MD Bright [facility] 06-30-2022 22:26-0500 Body weight 73.3 kg MD Bright [facility] 03-03-2022 08:30-0400 SaO2% (BldA) [Mass fraction] 98 % MD Bright [facility] Work Phone: 03-03-2022 08:00-0400 Body temperature 97.9 [degF] MD Bright [facility] Work Phone: 03-03-2022 08:00-0400 Diastolic blood pressure 67 mm[Hg] MD Bright [facility] Work Phone: 03-03-2022 08:00-0400 Heart rate 101 /min MD Bright [facility] Work Phone: 03-03-2022 08:00-0400 Respiratory rate 18 /min MD Bright [facility] Work Phone: 03-03-2022 08:00-0400 Systolic blood pressure 111 mm[Hg] MD Bright [facility] Work Phone: 03-03-2022 05:12-0400 Body weight 56.8 kg MD Bright [facility] Work Phone: 2022 15:50-0400 Body height 177.8 cm MD Bright [facility] Work Phone: 2022 12:30-0400 Body mass index (BMI) [Ratio] 17.9 kg/m2 MD Deangelo Noel [facility] Work Phone: 2022 12:00-0400 Body temperature 97.7 [degF] [facility] Work Phone: 2022 12:00-0400 Diastolic blood pressure 93 mm[Hg] [facility] Work Phone: 2022 12:00-0400 Heart rate 160 /min [facility] Work Phone: 2022 12:00-0400 Respiratory rate 22 /min [facility] Work Phone: 2022 12:00-0400 SaO2% (BldA) [Mass fraction] 98 % [facility] Work Phone: 2022 12:00-0400 Systolic blood pressure 138 mm[Hg] [facility] Work Phone: 2022 10:13-0400 Body height 177.8 cm [facility] Work Phone: 2022 10:13-0400 Body mass index (BMI) [Ratio] 19.3 kg/m2 [facility] Work Phone: 2022 10:13-0400 Body weight 61.23 kg [facility] Work Phone: 01-31-2022 10:10-0400 Body height 177.8 cm [facility] Work Phone: 01-31-2022 10:10-0400 Body mass index (BMI) [Ratio] 18.6 kg/m2 [facility] Work Phone: 01-31-2022 10:10-0400 Body temperature 98 [degF] [facility] Work Phone: 01-31-2022 10:10-0400 Body weight 58.96 kg [facility] Work Phone: 01-31-2022 10:10-0400 Diastolic blood pressure 80 mm[Hg] [facility] Work Phone: 01-31-2022 10:10-0400 Heart rate 75 /min [facility] Work Phone: 01-31-2022 10:10-0400 Respiratory rate 16 /min [facility] Work Phone: 01-31-2022 10:10-0400 SaO2% (BldA) [Mass fraction] 99 % [facility] Work Phone: 01-31-2022 10:10-0400 Systolic blood pressure 92 mm[Hg] [facility] Work Phone: 01-19-2022 09:41-0400 Body mass index (BMI) [Ratio] 16.5 kg/m2 [facility] Work Phone: 01-19-2022 09:41-0400 Body temperature 97.9 [degF] [facility] Work Phone: 01-19-2022 09:41-0400 Body weight 52.16 kg [facility] Work Phone: 01-19-2022 09:41-0400 Diastolic blood pressure 70 mm[Hg] [facility] Work Phone: 01-19-2022 09:41-0400 Heart rate 106 /min [facility] Work Phone: 01-19-2022 09:41-0400 Respiratory rate 16 /min [facility] Work Phone: 01-19-2022 09:41-0400 SaO2% (BldA) [Mass fraction] 97 % [facility] Work Phone: 01-19-2022 09:41-0400 Systolic blood pressure 105 mm[Hg] [facility] Work Phone: 01-15-2017 03:55-0400 Body surface area Derived from formula 240.08 mL/min Ge Stafford MD [facility] Work Phone: 12-10-2016 16:10-0400 BP Diastolic 66 mm[Hg] Edwina Quintero NP [facility] Work Phone: 12-10-2016 16:10-0400 BP Systolic 104 mm[Hg] Edwina Quintero LIEN SEARCHER [facility] Work Phone: 12-10-2016 16:10-0400 Pulse (Heart Rate) 86 /min Edwina Quintero LIEN SEARCHER [facility] Work Phone: 12-10-2016 16:10-0400 Respiratory Rate 14 /min Edwina Quintero NP [facility] Work Phone: 12-10-2016 16:10-0400 Weight 67.13 kg Edwina Quintero NP [facility] Work Phone: 11-12-2016 15:36-0400 BMI (Body Mass Index) 24.79 kg/m2 Edwina Quintero LIEN SEARCHER [facility] Work Phone: 11-12-2016 15:36-0400 Body Temperature 98.01 [degF] Edwina Quintero LIEN SEARCHER [facility] Work Phone: 11-12-2016 15:36-0400 Body Temperature 98 [degF] Edwina Quintero LIEN SEARCHER [facility] Work Phone: 11-12-2016 15:36-0400 BP Diastolic 69 mm[Hg] Edwina Quintero LIEN SEARCHER [facility] Work Phone: 11-12-2016 15:36-0400 BP Systolic 105 mm[Hg] Edwina Quintero LIEN SEARCHER [facility] Work Phone: 11-12-2016 15:36-0400 BSA (Body Surface Area) 1.75 m2 Edwina Quintero LIEN SEARCHER [facility] Work Phone: 11-12-2016 15:36-0400 Height 165.1 cm [facility] Work Phone: 11-12-2016 15:36-0400 Pulse (Heart Rate) 90 /min [facility]ina Regalado [facility] Work Phone: 11-12-2016 15:36-0400 Pulse Oximetry 98 % Edwina Quintero NP [facility] Work Phone: 11-12-2016 15:36-0400 Respiratory Rate 14 /min Edwina Regalado [facility] Work Phone: 11-12-2016 15:36-0400 Weight 67.58 kg Edwina [facility] Work Phone: 11-12-2016 15:36-0400 Weight 67.59 kg Edwina Quintero NP [facility] Work Phone: Encounters Encounter Date Encounter Type Care Provider Facility Start: 01-26-2025 End: 01-26-2025 Emergency department patient visit Dr. Keisha Handy DO Work Phone: -Emergency Department Work Phone: Start: 12-18-2024 ambulatory Zebulun Beam VSC Facili ty:[facility] Start: 12-13-2024 End: 12-14-2024 Emergency department patient visit Dr. Keisha Handy DO Work Phone: -Emergency Department Work Phone: Start: 12-12-2024 End: 12-12-2024 Emergency department patient visit Dr. Keisha Handy DO Work Phone: -Emergency Department Work Phone: Start: 11-11-2024 End: 11-11-2024 Emergency department patient visit Dr. Keisha Handy DO Work Phone: -Emergency Department Work Phone: Start: 10-19-2024 End: 10-19-2024 Emergency department patient visit Dr. Keisha Handy DO Work Phone: -Emergency Department Work Phone: Start: 10-10-2024 End: 10-10-2024 ambulatory Facility:[facility] Start: 01-03-2023 End: 01-04-2023 Emergency department patient visit MD Deangelo Noel [facility]-Emergency Department Start: 12-09-2022 End: 12-09-2022 Emergency department patient visit MD Deangelo Noel [facility]-Emergency Department Start: 12-03-2022 End: 12-03-2022 [facility] Start: 11-17-2022 End: 11-17-2022 Emergency department patient visit MD Deangelo Noel [facility]-Emergency Department Start: 10-13-2022 Non-patient / Non-visit MD Alessandra kapadia [facility] Start: 10-13-2022 End: 10-13-2022 ambulatory MD Bright [facility] Work Phone: Start: 10-13-2022 End: 10-13-2022 Patient encounter procedure MD Bright [facility] Start: 10-13-2022 End: 10-13-2022 Emergency department [facility] Start: 10-05-2022 Orders Only Deangelo garcía MD Work Phone: [facility] Start: 10-03-2022 Telephone encounter Deangelo canales MD Work Phone: [facility] Comment on above: Letter Start: 09-22-2022 Telephone encounter Phillip jiménze APRN.PLASTER MACHINE TENDER Work Phone: [facility] Comment on above: Appointment Start: 08-24-2022 End: 08-24-2022 Emergency department patient visit MD Bright [facility]Emergency Department Start: 08-21-2022 Refill Phillip HINOJOSA RN.PLASTER MACHINE TENDER Work Phone: [facility] Comment on above: Refill Request Start: 08-20-2022 Non-patient / Non-visit MD Deangelo Escobar [facility] Start: 08-19-2022 Non-patient / Non-visit MD Deangelo Escobar [facility] Start: 08-18-2022 Non-patient / Non-visit MD eDangelo Escobar [facility] Start: 08-18-2022 End: 08-20-2022 Evaluation and management of inpatient MD Bright [facility]-Medical Surgical 2 Start: 07-09-2022 Telephone encounter Deangelo canales MD Work Phone: [facility] Comment on above: Insurance Authorizat ion ([employer] ) Start: 07-07-2022 End: 07-07-2022 Emergency department patient visit MD Bright [facility]Emergency Department Start: 07-07-2022 End: 07-07-2022 Patient encounter procedure Isaiah Caldera APRN.PLASTER MACHINE TENDER Work Phone: [facility] Comment on above: Chest pain, unspecif ied type (Primary Dx); High blood sugar APPOINTMENT CANCELLE D (Primary Dx); Uncontrolled type 1 diabetes mellitus with hypoglycemia without coma (HCC); Type I (juvenile type) diabetes mellitus without mention of complication, not stated as uncontrolled (HCC) Start: 06-30-2022 End: 07-01-2022 Emergency department patient visit MD Bright [facility]Emergency Department Start: 06-11-2022 Telephone encounter Deangelo canales MD Work Phone: [facility] Comment on above: Results Start: 06-09-2022 Telephone encounter Deangelo canales MD Work Phone: [facility] Comment on above: Urgent value Start: 06-07-2022 Telephone encounter Radha Hameed APRN.PLASTER MACHINE TENDER Work Phone: [facility] Comment on above: Medication Problem Refill Request Start: 03-04-2022 Patient Outreach Meena alexandra APRN.PLASTER MACHINE TENDER Work Phone: [facility] Comment on above: Transition Of Care Start: 03-03-2022 Non-patient / Non-visit MD Deangelo lowry [facility]patient [facility] Start: 2022 Non-patient / Non-visit MD Deangelo lowry [facility] Start: 2022 End: 03-03-2022 Evaluation and management of inpatient [facility]-Intensive Care Unit Start: 01-31-2022 End: 01-31-2022 Emergency department patient visit [facility]-Emergency Department Start: 01-19-2022 End: 01-19-2022 Emergency department patient visit [facility]-Emergency Department Start: 11-17-2021 ambulatory Phillip HINOJOSA RN.PLASTER MACHINE TENDER Work Phone: [facility] Comment on above: PHMA/Care Gap Outrea ch Start: 06-26-2021 Telephone encounter Deangelo canales MD Work Phone: [facility] Comment on above: Insurance Authorizat ion Start: 04-21-2018 End: 04-22-2018 Patient encounter JORGE DUNCAN [facility] Start: 03-20-2018 End: 03-23-2018 Evaluation and management of inpatient GLO KOENIG [facility] Start: 01-13-2018 End: 01-14-2018 Ambulatory [facility] Start: 12-27-2017 End: 12-27-2017 Ambulatory RON Rodgers [facility] Start: 12-21-2017 End: 12-22-2017 Ambulatory RON Rodgers [facility] Start: 12-17-2017 End: 12-18-2017 Ambulatory RON Rodgers TRISTAN [facility] Start: 12-17-2017 End: 12-17-[address] [facility] Start: 12-10-2017 End: 12-11-[address] [facility] Start: 11-20-2017 End: 12-06-2017 Evaluation and management of inpatient [facility] Procedures Date Procedure Procedure Detail Performing Clinician Start: 01-26-2025 Methadone measuremen t, urine Dr. Keisha Handy DO Work Phone: Start: 01-26-2025 X-ray of chest, PA a nd lateral views Dr. Keisha Handy DO Work Phone: Start: 01-26-2025 D-dimer assay, quantitative Dr. Keisha Handy DO Work Phone: Comment on above: NORMAL D-Dimer level (<0.50) indicates no DVT or PE. Start: 01-26-[address] Keisha Handy DO Work Phone: Start: 12-14-[address] Keisha Handy DO Work Phone: Start: 12-13-2024 Urnls dip stick/tabl et reagent auto microscopy Dr. Keisha Handy DO Work Phone: Start: 12-13-[address] Keisha Handy DO Work Phone: Start: 12-12-2024 Plain X-ray of shoulder Dr. Keisha Handy DO Work Phone: Start: 11-11-[address] Keisha Handy DO Work Phone: Start: 10-19-2024 Urnls dip stick/tabl et reagent auto microscopy Dr. Keisha Handy DO Work Phone: Start: 10-19-2024 X-ray of chest, PA a nd lateral views Dr. Keisha Handy DO Work Phone: Start: 10-19-2024 D-dimer assay, quantitative Dr. Keisha Handy DO Work Phone: Comment on above: NORMAL D-Dimer level (<0.50) indicates no DVT or PE. Start: 10-19-[address] Keisha Handy DO Work Phone: Start: 01-03-2023 Plain chest X-ray MD Lior ORELLANA Start: 12-09-2022 Plain chest X-ray MD Lior ORELLANA Start: 12-03-2022 CT angiography of ch est with contrast MD Deangelo ORELLANA Start: 12-03-2022 Plain chest X-ray MD Lior matias Sadie [facility] Start: 11-17-2022 CT angiography of ch est with contrast MD Deangelo ORELLANA Start: 11-17-2022 Plain chest X-ray MD Lior matias Sadie [facility] Start: 10-13-2022 Plain chest X-ray MD Lior matias Kekesheng Start: 08-18-2022 [facility] Start: 07-07-2022 Plain chest X-ray MD Lior matias Sadie Start: 06-30-2022 Plain chest X-ray MD Lior matias Sadie Start: 01-19-2022 Plain X-ray of tibia and fibula Start: 06-22-2018 Adult depression scr eening assessment Phillip Howe APRN.PLASTER MACHINE TENDER Work Phone: Start: 11-12-2016 End: 11-12-2016 *Microalbumin, Creatine Ratio, rand urine Edwina Quintero LIEN SEARCHER Work Phone: Start: 11-12-2016 End: 11-13-2016 HbA1c Edwina Quintero LIEN SEARCHER Work Phone: Respiratory Panel (PCR) MD Alex Noel Respiratory Panel (PCR) MD Alex Noel SARS-CoV-2 & FLU Ant igen (Rapid) MD Deangelo Noel SARS-CoV-2 & FLU Ant igen (Rapid) MD Deangelo Noel Streptococcus pyogen es antigen assay MD Deangelo Noel Streptococcus pyogen es antigen assay MD Deangelo Noel Plan of Treatment Date Care Activity Detail Author Start: 10-01-2030 Urine microalbumin profile DTAP,TDAP,TD (8 - Td or Tdap) [facility] Start: 01-26-2025 [facility] Start: 01-26-2025 [facility] Start: 12-14-2024 [facility] Start: 12-12-2024 [facility] Start: 11-11-2024 [facility] Start: 10-19-2024 [facility] Start: 10-19-2024 [facility] Start: 08-25-2023 ANNUAL PCP TEAM CHRONIC DISEASE VISIT ANNUAL PCP TEAM CHRONIC DISEASE VISIT [facility] Start: 11-29-2023 ANNUAL PCP TEAM CHRONIC DISEASE VISIT ANNUAL PCP TEAM CHRONIC DISEASE VISIT [facility] Start: 06-09-2023 ANNUAL PCP TEAM CHRONIC DISEASE VISIT ANNUAL PCP TEAM CHRONIC DISEASE VISIT [facility] Start: 06-09-2023 Hepatitis B surface antibody level LDL CHOLESTEROL [facility] Start: 01-03-2023 [facility] Start: 12-09-2022 [facility] Start: 12-04-2022 [facility] Start: 12-03-2022 [facility] Start: 11-18-2022 [facility] [facility] Start: 11-17-2022 [facility] Start: 10-13-2022 Assay of troponin quantitative ASSAY OF TROPONIN QUANT [facility] Start: 10-13-2022 Basic metabolic panel calcium total METABOLIC PANEL TOTAL CA [facility] Start: 10-13-2022 Blood count complete auto&auto difrntl wbc COMPLETE CBC W/AUTO DIFF WBC [facility] Start: 10-13-2022 Ecg routine ecg w/least 12 lds trcg only w/o i&r ELECTROCARDIOGRAM TRACING [facility] Start: 10-13-2022 Iv infusion hydration each additional hour HYDRATE IV INFUSION ADD-ON [facility] Start: 10-13-2022 Iv infusion hydration initial 31 min-1 hour HYDRATION IV INFUSION INIT [facility] Start: 10-13-2022 Radiologic exam chest single view X-RAY EXAM CHEST 1 VIEW [facility] Start: 09-09-2022 Hemoglobin A1c/Hemoglobin.total in Blood HBA1C [facility] Start: 08-20-2022 Patient discharge [facility] Start: 08-19-2022 Care planning and problem solving actions [facility] Start: 08-19-2022 Care regimes management [facility] Start: 08-19-2022 Notification of physician [facility] Start: 08-19-2022 [facility] Start: 08-18-2022 End: 08-19-2022 [facility] Start: 08-18-2022 Ambulation without limitation [facility] Start: 08-18-2022 Assessment of risk of venous thromboembolism [facility] Start: 08-18-2022 Continuous pulse oximetry [facility] Start: 08-18-2022 End: 08-18-2022 Following clinical pathway protocol [facility] Start: 08-18-2022 Inhalation therapy procedure [facility] Start: 08-18-2022 Insertion of catheter into peripheral vein [facility] Start: 08-18-2022 Lab findings surveillance [facility] Start: 08-18-2022 Measuring intake and output [facility] Start: 08-18-2022 Notification of physician [facility] Start: 08-18-2022 Patient education [facility] Start: 08-18-2022 Patient referral to dietitian [facility] Start: 08-18-2022 Providing care according to standard [facility] Start: 08-18-2022 Vital signs measurements [facility] Start: 08-18-2022 Admission procedure [facility] Start: 08-09-2022 DEPRESSION ASSESSMENT DEPRESSION ASSESSMENT [facility] Start: 07-07-2022 [facility] Start: 06-30-2022 [facility] Start: 06-25-2022 ANNUAL PCP TEAM CHRONIC DISEASE VISIT ANNUAL PCP TEAM CHRONIC DISEASE VISIT [facility] Start: 04-09-2022 Influenza vaccination INFLUENZA (#1) [facility] Start: 03-03-2022 Patient discharge [facility] Work Phone: Start: 03-03-2022 Care regimes management [facility] Work Phone: Start: 03-03-2022 Notification of physician [facility] Work Phone: Start: 03-03-2022 [facility] Work Phone: Start: 03-03-2022 [facility] Work Phone: Start: 2022 [facility] Work Phone: Start: 2022 Application of intermittent pneumatic compression device [facility] Work Phone: Start: 2022 Assessment of risk of venous thromboembolism [facility] Work Phone: Start: 2022 Continuous pulse oximetry [facility] Work Phone: Start: 2022 End: 2022 Following clinical pathway protocol [facility] Work Phone: Start: 2022 Insertion of catheter into peripheral vein [facility] Work Phone: Start: 2022 Lab findings surveillance [facility] Work Phone: Start: 2022 Measuring intake and output [facility] Work Phone: Start: 2022 Notification of physician [facility] Work Phone: Start: 2022 Patient education [facility] Work Phone: Start: 2022 Patient referral to dietitian [facility] Work Phone: Start: 2022 Providing care according to standard [facility] Work Phone: Start: 2022 Vital signs measurements [facility] Work Phone: Start: 2022 [facility] Work Phone: Start: 2022 Blood chemistry [facility] Work Phone: Start: 2022 Verification routine [facility] Work Phone: Start: 2022 Admission procedure [facility] Work Phone: Start: 2022 Urinalysis complete panel - Urine [facility] Work Phone: Start: 2022 End: 2022 [facility] Work Phone: Start: 2022 [facility] Work Phone: Start: 01-08-2022 Hepatitis B screening URINE ALBUMIN:CREATININE RATIO [facility] Start: 01-08-2022 Hepatitis B surface antibody level LDL CHOLESTEROL [facility] Start: 11-17-2021 End: 01-17-2022 ALBUMIN/CREAT RATIO RND UR ALBUMIN/CREAT RATIO RND UR Lab Routine Uncontrolled type 1 diabetes mellitus with hypoglycemia without coma (HCC) Expected: 11/17/2021, Expires: 01/17/2022 [facility] Work Phone: Comment on above: Expected: 11/17/2021, Expires: Start: 08-09-2021 DEPRESSION ASSESSMENT DEPRESSION ASSESSMENT [facility] Start: 04-10-2021 Hemoglobin A1c/Hemoglobin.total in Blood HBA1C [facility] Start: 09-22-2020 3 comp foot exam completed DIABETIC FOOT EXAM [facility] Start: 06-22-2019 Adult depression screening assessment DEPRESSION SCREENING [facility] Start: 05-11-2017 Hepatitis C antibody, confirmatory test DILATED RETINAL EXAM [facility] Start: 03-15-2017 End: 03-15-2017 Appointment Appointment [facility] Work Phone: Start: 03-15-2017 End: 03-15-2017 Appointment Appointment [facility] Work Phone: Start: 12-10-2016 End: 12-10-2016 Appointment Appointment [facility] Work Phone: Start: 12-10-2016 End: 12-12-2016 *CMP Complete Metabolic Panel *CMP Complete Metabolic Panel [facility] Work Phone: Start: 12-10-2016 End: 12-12-2016 HbA1c *HgA1C [facility] Work Phone: Start: 12-10-2016 End: 12-12-2016 Lipid panel [AGGREGATE] *Lipid Profile [facility] Work Phone: Start: 12-10-2016 End: 12-12-2016 Office/outpatient visit, est, level 3 [id number] Vst-Est Level III [facility] Work Phone: Start: 11-12-2016 End: 11-12-2016 *CMP Complete Metabolic Panel *CMP Complete Metabolic Panel [facility] Work Phone: Start: 11-12-2016 End: 11-12-2016 *Microalbumin, Creatine Ratio, rand urine *Microalbumin, Creatine Ratio, rand urine [facility] Work Phone: Start: 11-12-2016 End: 11-13-2016 HbA1c *HgA1C [facility] Work Phone: Start: 11-12-2016 End: 11-12-2016 Lipid panel [AGGREGATE] *Lipid Profile [facility] Work Phone: Start: 2015 HEPATITIS C SCREENING HEPATITIS C SCREENING [facility] Start: 2015 HIV SCREENING HIV SCREENING [facility] Start: 10-10-2013 PNEUMOCOCCAL (2 - PPSV23 if available, else PCV20) PNEUMOCOCCAL (2 - PPSV23 if available, else PCV20) [facility] Start: 10-10-2013 PNEUMOCOCCAL (2 - PPSV23 or PCV20) PNEUMOCOCCAL (2 - PPSV23 or PCV20) [facility] Start: 10-02-2013 HPV VACCINE (3 - Male 3-dose series) HPV VACCINE (3 - Male 3-dose series) [facility] Start: 2013 ONE PNEUMOVAX PRIOR TO AGE 65 ONE PNEUMOVAX PRIOR TO AGE 65 [facility] Start: 12-05-2012 PNEUMOCOCCAL (2 - PPSV23 if available, else PCV20) PNEUMOCOCCAL (2 - PPSV23 if available, else PCV20) [facility] Start: 2011 PEDS TO ADULT TRANSITION ANNUAL ASSESSMENT PEDS TO ADULT TRANSITION ANNUAL ASSESSMENT [facility] Start: 2009 PEDS TO ADULT TRANSITION INITIAL DISCUSSION PEDS TO ADULT TRANSITION INITIAL DISCUSSION [facility] Start: 2007 MENINGOCOCCAL B: Consider based on risk (1 of 2 - Risk Bexsero 2-dose series) MENINGOCOCCAL B: Consider based on risk (1 of 2 - Risk Bexsero 2-dose series) [facility] Start: 2002 COVID-19 VACCINE (1) COVID-19 VACCINE (1) [facility] Start: 1997 COVID-19 VACCINE (#1) COVID-19 VACCINE (#1) [facility] Anion gap measurement [facility] Work Phone: BUN/Creatinine ratio [facility] Work Phone: Calcium [Mass/volume ] in Serum or Plasma [facility] Work Phone: Carbon dioxide, tota l [Moles/volume] in Serum or Plasma [facility] Work Phone: Chloride [Moles/volu me] in Serum or Plasma [facility] Work Phone: Creatinine [Moles/volume] in Serum or Plasma [facility] Work Phone: Glucose [Mass/volume ] in Serum or Plasma [facility] Work Phone: Measurement of renal function [facility] Work Phone: Patient Education [facility] Work Phone: Patient referral [facility] Work Phone: Potassium [Moles/volume] in Serum or Plasma [facility] Work Phone: Sodium [Moles/volume ] in Serum or Plasma [facility] Work Phone: Urea nitrogen [Mass/volume] in Serum or Plasma [facility] Work Phone: [facility] Immunizations Immunization Date Immunization Notes Care Provider Franco kiran 06-09-2022 influenza, injectabl e, quadrivalent, contains preservative Deangelo Noel MD Work Phone: [facility] 06-25-2021 influenza, injectabl e, quadrivalent, contains preservative Phillip Charles TEACHING ASSOCIATE.[employer]ER MACHINE TENDER Work Phone: [facility] 10-01-2020 tetanus toxoid, reduced diphtheria toxoid, and acellular pertussis vaccine, adsorbed Phillip Charles TEACHING ASSOCIATE.[employer]ASTER MACHINE TENDER Work Phone: [facility] 06-28-2019 influenza, injectabl e, quadrivalent, contains preservative Phillip Charles TEACHING ASSOCIATE.PLASTER MACHINE TENDER Work Phone: [facility] 11-20-2017 tetanus toxoid, reduced diphtheria toxoid, and acellular pertussis vaccine, adsorbed [facility] 05-18-2017 influenza, injectabl e, quadrivalent, preservative free Dr. Keisha Handy DO Work Phone: [facility] 05-18-2017 influenza, seasonal, injectable [facility] 08-28-2015 influenza, injectabl e, quadrivalent, preservative free Phillip Charles TEACHING ASSOCIATE.PLASTER MACHINE TENDER Work Phone: [facility] 08-09-2015 influenza, injectabl e, quadrivalent, preservative free Dr. Keisha Handy DO Work Phone: [facility] 08-09-2015 influenza, seasonal, injectable [facility] 06-13-2014 influenza, seasonal, injectable Phillip Charles TEACHING ASSOCIATE.PLASTER MACHINE TENDER Work Phone: [facility] 06-01-2013 human papilloma viru s vaccine, quadrivalent Phillip Charles TEACHING ASSOCIATE.PLASTER MACHINE TENDER Work Phone: [facility] Work Phone: 06-01-2013 influenza virus vaccine, unspecified formulation Phillip Charles TEACHING ASSOCIATE.PLASTER MACHINE TENDER Work Phone: [facility] Work Phone: 06-01-2013 Meningococcal, MCV4, unspecified conjugate formulation(groups A, C, Y and W-135) Phillip Charles TEACHING ASSOCIATE.PLASTER MACHINE TENDER Work Phone: [facility] Work Phone: 10-10-2012 human papilloma viru s vaccine, quadrivalent Phillip Charles TEACHING ASSOCIATE.PLASTER MACHINE TENDER Work Phone: [facility] 10-10-2012 pneumococcal conjuga te vaccine, 13 valent Phillip Charles TEACHING ASSOCIATE.PLASTER MACHINE TENDER Work Phone: [facility] 06-03-2010 influenza virus vaccine, unspecified formulation Phillip Charles TEACHING ASSOCIATE.PLASTER MACHINE TENDER Work Phone: [facility] 01-02-2009 Meningococcal, MCV4, unspecified conjugate formulation(groups A, C, Y and W-135) Phillip Charles TEACHING ASSOCIATE.PLASTER MACHINE TENDER Work Phone: [facility] Work Phone: 01-02-2009 tetanus toxoid, reduced diphtheria toxoid, and acellular pertussis vaccine, adsorbed Phillip Charles TEACHING ASSOCIATE.PLASTER MACHINE TENDER Work Phone: [facility] Work Phone: 06-17-2007 influenza virus vaccine, unspecified formulation Phillip Charles TEACHING ASSOCIATE.[facility] Work Phone: [facility] Work Phone: 06-28-2003 diphtheria, tetanus toxoids and pertussis vaccine Phillip Charles TEACHING ASSOCIATE.PLASTER MACHINE TENDER Work Phone: [facility] Work Phone: 06-28-2003 poliovirus vaccine, inactivated Phillip Charles TEACHING ASSOCIATE.[facility] Work Phone: [facility] Work Phone: 04-24-2002 hepatitis B vaccine, pediatric or pediatric/adolescent dosage Phillip Charles TEACHING ASSOCIATE.[facility] Work Phone: [facility] Work Phone: 04-24-2002 measles, mumps and rubella virus vaccine Phillip Charles TEACHING ASSOCIATE.[facility] Work Phone: [facility] Work Phone: 03-18-2000 diphtheria, tetanus toxoids and pertussis vaccine Phillip Charles TEACHING ASSOCIATE.PLASTER MACHINE TENDER Work Phone: [facility] Work Phone: 03-18-2000 haemophilus influenz ae type b vaccine, HbOC conjugate Phillip Charles TEACHING ASSOCIATE.[facility] Work Phone: [facility] Work Phone: 03-18-2000 hepatitis B vaccine, pediatric or pediatric/adolescent dosage Phillip Charles TEACHING ASSOCIATE.[facility] Work Phone: [facility] Work Phone: 03-18-2000 poliovirus vaccine, inactivated Phillip Charles TEACHING ASSOCIATE.PLASTER MACHINE TENDER Work Phone: [facility] Work Phone: 06-10-1998 measles, mumps and rubella virus vaccine Phillip Charles TEACHING ASSOCIATE.PLASTER MACHINE TENDER Work Phone: [facility] Work Phone: 1997 diphtheria, tetanus toxoids and pertussis vaccine Phillip Charles TEACHING ASSOCIATE.PLASTER MACHINE TENDER Work Phone: [facility] Work Phone: 1997 haemophilus influenz ae type b vaccine, HbOC conjugate Phillip Charles TEACHING ASSOCIATE.[facility] Work Phone: [facility] Work Phone: 1997 diphtheria, tetanus toxoids and pertussis vaccine Phillip Charles TEACHING ASSOCIATE.[facility] Work Phone: [facility] Work Phone: 1997 haemophilus influenz ae type b vaccine, HbOC conjugate Phillip Charles TEACHING ASSOCIATE.PLASTER MACHINE TENDER Work Phone: [facility] Work Phone: 1997 poliovirus vaccine, inactivated Phillip Charles TEACHING ASSOCIATE.[facility] Work Phone: [facility] Work Phone: 1997 diphtheria, tetanus toxoids and pertussis vaccine Phillip Charles TEACHING ASSOCIATE.[facility] Work Phone: [facility] Work Phone: 1997 haemophilus influenz ae type b vaccine, HbOC conjugate Phillip Charles TEACHING ASSOCIATE.[facility] Work Phone: [facility] Work Phone: 1997 hepatitis B vaccine, pediatric or pediatric/adolescent dosage Phillip Charles TEACHING ASSOCIATE.[facility] Work Phone: [facility] Work Phone: 1997 poliovirus vaccine, inactivated Phillip Charles TEACHING ASSOCIATE.[facility] Work Phone: [facility] Work Phone: Payers Date Payer Category Payer Self-pay [id number] 2024 Medicaid [id number] 2021 Medicaid [employer] [place] [employer] [id number] 2021-[facility] [id number] [id number] Medicaid [id number] 2021 Medicaid [id number] Medicaid [id number] Medicaid MEDICAID [id number] Unknown [id number] Unknown [id number] Unknown [id number] Unknown [id number] Unknown [id number] Unknown [id number] Social History Date Type Detail Facility Start: 06-22-2018 End: 06-09-2022 Tobacco smoking status NHIS Never smoked tobacco [facility] History of tobacco use Cigarette Smoker [facility] History of tobacco use Cigar Smoker [facility] Start: 06-22-2018 End: 06-09-2022 Cigarettes smoked current (pack per day) - Reported 1 [facility] Start: 06-22-2018 End: 06-09-2022 Tobacco use and exposure User of smokeless tobacco [facility] History of tobacco use Chews Tobacco [facility] Start: 09-18-2021 End: 08-25-2022 Alcohol intake Current drinker of alcohol (finding) [facility] Start: 04-12-2018 History SDOH Alcohol Comment once a year [facility] Start: 05-11-2018 Education 13 [facility] Start: 08-28-2015 End: 06-09-2022 Tobacco Comment dad smokes inside and outside. Dad trying to quit. patient chews and smokes also [facility] Start: 1997 Sex Assigned At Not on file C [facility] Start: 08-19-2021 End: 06-09-2022 Exposure to SARS-CoV-2 (event) Not sure [facility] Start: 01-31-2022 End: 01-03-2023 Tobacco smoking status NHIS Unknown if ever smoked [facility] Start: 11-25-2020 None [facility] Start: 11-25-2020 With Family [facility] Start: 11-25-2020 Cigarettes;Chew [facility] Start: 1997 Sex Assigned At Male W [facility] Start: 02-21-2022 End: 03-03-2022 Exposure to SARS-CoV-2 (event) Unable to assess [facility] Work Phone: Start: 10-19-2024 End: 01-26-2025 Tobacco smoking status NHIS Current some day smoker [facility] Start: 10-19-2024 End: 11-11-2024 Sex Male (finding) [facility] Medical Equipment Procedure Code Equipment Code Equipment Original Text Equipment Identifier Dates INSULIN PEN NEEDLE [id number] Start: 01-16-2014 End: 07-07-2022 Comment on above: Test blood sugar(s) 4 times daily. Dx: T ype 1 DM - Controlled E10.9 Insulin: Yes as directed for insu trever injections 3 times a day Use 4 times daily an d prn Use as instructed up to 4 times daily Test blood sugar(s) 3-4 times daily. Dx: Type 1 DM - Uncontrolled E10.9 Insulin: Yes Blood Sugar Diagnostic (Freestyle Lite Strips) strip Start: 12-23-2017 End: 12-23-2017 Pen Needle, Diabetic (Comfort Ez Pen [place]) 31 gauge x 5/16" needle Start: 12-22-2017 End: 12-23-2017 Pen Needle, Diabetic (Comfort Ez Pen [place]) 31 gauge x 5/16" needle Start: 12-23-2017 End: 12-23-2017 Blood Sugar Diagnostic (Freestyle Lite Strips) strip Start: 12-23-2017 End: 12-23-2017 Pen Needle, Diabetic (Comfort Ez Pen [place]) 31 gauge x 5/16" needle Start: 12-22-2017 End: 12-23-2017 Pen Needle, Diabetic (Comfort Ez Pen [place]) 31 gauge x 5/16" needle Start: 12-23-2017 End: 12-23-2017 Blood Sugar Diagnostic (Freestyle Lite Strips) strip Start: 12-23-2017 End: 12-23-2017 Pen Needle, Diabetic (Comfort Ez Pen [place]) 31 gauge x 5/16" needle Start: 12-22-2017 End: 12-23-2017 Pen Needle, Diabetic (Comfort Ez Pen [place]) 31 gauge x 5/16" needle Start: 12-23-2017 End: 12-23-2017 Blood Sugar Diagnostic (Freestyle Lite Strips) strip Start: 12-23-2017 End: 12-23-2017 Pen Needle, Diabetic (Comfort Ez Pen [place]) 31 gauge x 5/16" needle Start: 12-22-2017 End: 12-23-2017 Pen Needle, Diabetic (Comfort Ez Pen [place]) 31 gauge x 5/16" needle Start: 12-23-2017 End: 12-23-2017 Blood Sugar Diagnostic (Freestyle Lite Strips) strip Start: 12-23-2017 End: 12-23-2017 Pen Needle, Diabetic (Comfort Ez Pen [place]) 31 gauge x 5/16" needle Start: 12-22-2017 End: 12-23-2017 Pen Needle, Diabetic (Comfort Ez Pen [place]) 31 gauge x 5/16" needle Start: 12-23-2017 End: 12-23-2017 Blood Sugar Diagnostic (Freestyle Lite Strips) strip Start: 12-23-2017 End: 12-23-2017 Pen Needle, Diabetic (Comfort Ez Pen [place]) 31 gauge x 5/16" needle Start: 12-22-2017 End: 12-23-2017 Pen Needle, Diabetic (Comfort Ez Pen [place]) 31 gauge x 5/16" needle Start: 12-23-2017 End: 12-23-2017 Blood Sugar Diagnostic (Freestyle Lite Strips) strip Start: 12-23-2017 End: 12-23-2017 Pen Needle, Diabetic (Comfort Ez Pen [place]) 31 gauge x 5/16" needle Start: 12-22-2017 End: 12-23-2017 Pen Needle, Diabetic (Comfort Ez Pen [place]) 31 gauge x 5/16" needle Start: 12-23-2017 End: 12-23-2017 Blood Sugar Diagnostic (Freestyle Lite Strips) strip Start: 12-23-2017 End: 12-23-2017 Pen Needle, Diabetic (Comfort Ez Pen [place]) 31 gauge x 5/16" needle Start: 12-22-2017 End: 12-23-2017 Pen Needle, Diabetic (Comfort Ez Pen [place]) 31 gauge x 5/16" needle Start: 12-23-2017 End: 12-23-2017 Blood Sugar Diagnostic (Freestyle Lite Strips) strip Start: 12-23-2017 End: 12-23-2017 Pen Needle, Diabetic (Comfort Ez Pen [place]) 31 gauge x 5/16" needle Start: 12-22-2017 End: 12-23-2017 Pen Needle, Diabetic (Comfort Ez Pen [place]) 31 gauge x 5/16" needle Start: 12-23-2017 End: 12-23-2017 Blood Sugar Diagnostic (Freestyle Lite Strips) strip Start: 12-23-2017 End: 12-23-2017 Pen Needle, Diabetic (Comfort Ez Pen [place]) 31 gauge x 5/16" needle Start: 12-22-2017 End: 12-23-2017 Pen Needle, Diabetic (Comfort Ez Pen [place]) 31 gauge x 5/16" needle Start: 12-23-2017 End: 12-23-2017 Blood Sugar Diagnostic (Freestyle Lite Strips) strip Start: 12-23-2017 End: 12-23-2017 Pen Needle, Diabetic (Comfort Ez Pen [place]) 31 gauge x 5/16" needle Start: 12-22-2017 End: 12-23-2017 Pen Needle, Diabetic (Comfort Ez Pen [place]) 31 gauge x 5/16" needle Start: 12-23-2017 End: 12-23-2017 Blood Sugar Diagnostic (Freestyle Lite Strips) strip Start: 12-23-2017 End: 12-23-2017 Pen Needle, Diabetic (Comfort Ez Pen [place]) 31 gauge x 5/16" needle Start: 12-22-2017 End: 12-23-2017 Pen Needle, Diabetic (Comfort Ez Pen [place]) 31 gauge x 5/16" needle Start: 12-23-2017 End: 12-23-2017 Insulin Syringe-Needle U-100 [Insulin Syringe-Needle U-100 0.5 Ml 31 Gauge X 5/16"] (Insulin Syringe-Needle U-100 0.5 Ml 31 Gauge X ) 0.5 mL 31 gauge x 5/16" syringe Start: 10-19-2024 Blood Sugar Diagnostic (Freestyle Lite Strips) strip Start: 12-23-2017 End: 12-23-2017 Pen Needle, Diabetic (Comfort Ez Pen [place]) 31 gauge x 5/16" needle Start: 12-22-2017 End: 12-23-2017 Pen Needle, Diabetic (Comfort Ez Pen [place]) 31 gauge x 5/16" needle Start: 12-23-2017 End: 12-23-2017 Insulin Syringe-Needle U-100 [Insulin Syringe-Needle U-100 0.5 Ml 31 Gauge X 5/16"] (Insulin Syringe-Needle U-100 0.5 Ml 31 Gauge X ) 0.5 mL 31 gauge x 5/16" syringe Start: 10-19-2024 Blood Sugar Diagnostic (Freestyle Lite Strips) strip Start: 12-23-2017 End: 12-23-2017 Pen Needle, Diabetic (Comfort Ez Pen [place]) 31 gauge x 5/16" needle Start: 12-22-2017 End: 12-23-2017 Pen Needle, Diabetic (Comfort Ez Pen [place]) 31 gauge x 5/16" needle Start: 12-23-2017 End: 12-23-2017 Insulin Syringe-Needle U-100 (Trueplus Insulin) 0.5 mL 31 gauge x 5/16" syringe Start: 10-19-2024 Blood Sugar Diagnostic (Freestyle Lite Strips) strip Start: 12-23-2017 End: 12-23-2017 Pen Needle, Diabetic (Comfort Ez Pen [place]) 31 gauge x 5/16" needle Start: 12-22-2017 End: 12-23-2017 Pen Needle, Diabetic (Comfort Ez Pen [place]) 31 gauge x 5/16" needle Start: 12-23-2017 End: 12-23-2017 Insulin Syringe-Needle U-100 (Trueplus Insulin) 0.5 mL 31 gauge x 5/16" syringe Start: 10-19-2024 Blood Sugar Diagnostic (Freestyle Lite Strips) strip Start: 12-23-2017 End: 12-23-2017 Pen Needle, Diabetic (Comfort Ez Pen [place]) 31 gauge x 5/16" needle Start: 12-22-2017 End: 12-23-2017 Pen Needle, Diabetic (Comfort Ez Pen [place]) 31 gauge x 5/16" needle Start: 12-23-2017 End: 12-23-2017 Goals Date Patient Goal Desired Activity /State Functional Status Date Assessment Result Facility 08-20-2022 Functional status Up ad abhishek;Bathroom Priv ilege [facility] Work Phone: 03-03-2022 Functional status Ambulates [facility] Work Phone: Mental Status Date Assessment Result Facility 01-26-2025 Cognitive function Voice/Name [facility] Work Phone: 10-19-2024 Cognitive function Voice/Name [facility] Work Phone: 01-03-2023 Cognitive function Voice/Name [facility] Work Phone: 12-09-2022 Cognitive function Level Of Cons ciousness Awake;Alert;Appropriate;Follow s Commands [facility] Work Phone: 12-03-2022 Cognitive function Voice/Name [facility] Work Phone: 11-17-2022 Cognitive function Voice/Name [facility] Work Phone: 10-13-2022 Cognitive function Level Of Cons ciousness Awake;Alert;Appropriate;Follow s Commands [facility] Work Phone: 08-20-2022 Cognitive function Voice/Name [facility] Work Phone: 07-07-2022 Cognitive function Level Of Cons ciousness Awake;Alert;Appropriate;Follow s Commands [facility] Work Phone: 06-30-2022 Cognitive function Voice/Name [facility] Work Phone: 03-03-2022 Cognitive function Voice/Name [facility] Work Phone: 2022 Cognitive function Level Of Cons ciousness Awake;Drowsy;Inappropriate [facility] Work Phone: Clinical Notes 05-29-2010 to 01-26-2025 Note Date & Type Note Facility 01-26-2025 Radiology Diagnostic study note [facility] Imaging Services [address] [place] [address] Chest PA and Lateral MR#: [id number] Acct: [id number] Name: UNA COSBY Rep #: [id number] : 1995 M 29 From: Roberto Babin MD PCP: Care Physician,No Primary Status: REG ER Study:Chest PA and Lateral Date of Exam: 01/26/25 Exam# [id number] Ordering Dr: Beverly Wharton PROCEDURE: CHEST PA AND LATERAL 01/26/2025 REASON FOR EXAM: CHEST PAIN TECHNIQUE: CHEST PA AND LATERAL COMPARISON: Prior study dated October 19, 2024. FINDINGS: Hardware: EKG electrodes. Heart: Unremarkable Mediastinum: The mediastinal contour is unremarkable. Lungs: The lungs are clear. Bones: The bones are unremarkable. RAD/Chest PA and Lateral IMPRESSION: NO ACUTE FINDINGS. Reading Location: [place] [address] CC: ZAIN Baker; No Primary Care Physician ~ Director Of Dance: Signed [facility] 12-14-2024 Discharge summary [facility] 12-13-2024 Discharge summary Note Date/Time December 14, 2024 2:13am [facility] Medical Records Department [address] [place] [address] Emergency Department Summary 12/13/24 MR#: [id number] Acct: [id number] Name: UNA COSBY Rep #:[id number] : 1995 29 From: Juan Rivas MD PCP: Care Physician,No Primary Status :REG ER Location: ED HPI History of Present Illness Chief Complaint: Nausea/Vomiting Informant: patient Narrative Narrative: 29-year-old male seen here yesterday for shoulder pain and prescribed Naprosyn he states soon after taking the first pill last night he started vomiting. Today he has been vomiting all day, and subsequently started feeling orthostatic when he stood up, feeling lightheaded. No syncopal episodes. No hematemesis. No fevers, chills, abdominal pain, diarrhea. He denies feeling short of breath. He is a type I diabetic, he does not use a pump but injects his own. States hedid give himself some insulin around 8 hours ago when his blood sugar was somewhere in the 200s he has not checked it since. Does not feel polyuria/polydipsia since then. States he cannot keep anything down all day. [facility] Medical History Learning difficulty due to cognitive limitations H/O fracture of skull Anxiety Depression Septic shock Type 1 diabetes mellitus Type I diabetes mellitus, uncontrolled Home Medications ?Medication ?Instructions ?Recorded ?Last Taken ?Type insulin lispro 100 unit/mL 25 unit SQ TIDCM short acti ng 03/05/21 03/04/21 History subcutaneous pen insulin insulin glargine 100 unit/mL (3 50 unit subcut QPM linda betes 08/18/22 Unknown History mL) subcutaneous pen (Lantus Solostar U-100 Insulin) insulin glargine 100 unit/mL 35 unit subcut QHS Unknown History subcutaneous solution (Lantus U-100 Insulin) insulin lispro 100 unit/mL 25 unit subcut TIDCM Unknown History subcutaneous solution insulin syringe-needle U-100 0.5 10/19/24 Unknown His tory mL 31 gauge x 5/16" (TRUEplus Insulin) ondansetron 8 mg disintegrating 8 mg PO Q8H PRN nausea and 12/14/24 Unknown Rx tablet vomiting #12 tabs Allergy/AdvReac Type Severity Reaction Status Date / Time No Known Allergies Allergy Verified 12/13/24 21:14 Family History Father Diabetes Surgical History H/O skin graft Social History household members: family Smoking Status: Current some day smoker tobacco type: cigarettes, e-cigarettes and smokeless tobacco Smokeless tobacco user: chewing tobacco second hand exposure: Yes alcohol intake: never substance use type: does not use ROS ROS ED Constitutional Constitutional ED: Denies chills or fever(s) Eyes Eyes: Denies change in vision or diplopia ENT ENT ED: Denies rhinorrhea or sore throat Cardiovascular Cardiovascular: Reports lightheadedness and orthostatic symptoms; Denies chest pain, palpitations or syncope Respiratory/Chest Respiratory/Chest: Denies cough or dyspnea Gastrointestinal Gastrointestinal: Reports nausea and vomiting; Denies abdominal pain or diarrhea Genitourinary Genitourinary ED: Denies dysuria or hematuria Musculoskeletal Musculoskeletal: Reports other Details: left shoulder pain x months, "I just decided to get it checked out yesterday." ; Denies back pain or neck pain Integumentary Denies abscess or rash Neurologic Neurologic: Denies headache(s), paresthesias or weakness Psychiatric Psychiatric: Denies anxiety or suicidal thoughts Endocrine Endocrinology: Denies polydipsia or polyuria EXAM Physical Exam Const Vital Signs: 12/13/24 21:12 12/13/24 23:12 12/14/24 01:00 Temperature 98.4 F Temperature Source Temporal Pulse Rate 110 H 95 100 Respiratory Rate 18 16 16 Blood Pressure 106/78 106/74 96/63 Blood Pressure Mean 87 84 74 Pulse Ox 99 99 97 Oxygen Delivery Method Room Air Room Air Room Air Positive well nourished and well developed Constitutional Narrative: well-appearing General Appearance ED: well developed and NAD HEENT Reports moist mucous membranes normocephalic and atraumatic Eyes PERRL and EOMs intact bilaterally Neck full ROM and supple Resp normal respiratory effort and clear to auscultation bilaterally Cardio regular rate, regular rhythm and no murmurs Rate: tachycardic GI non-tender and non-distended Auscultation: normoactive bowel sounds Palpation: soft Back/Spine no CVA tenderness General Back: other FROM Extremity normal to inspection General Extremety ED: Negative for edema, pulses abnormal or tenderness General Extremity: Negative for edema or pulses abnormal Neuro oriented x3, CN's II-XII intact bilaterally and no sensory deficits noted Sensorium / Orientation: awake and alert Motor Exam: strength 5/5 throughout Skin no rashes or lesions noted and no wounds MDM MDM MDM Narrative Medical decision making narrative: Initial check, his blood sugar is 490, and his EKG shows some peaked T waves concerning for hyperkalemia which is confirmed when his chemistries come back with potassium 5.3. His beta-hydroxybutyric acid is 1.7, and this is all concerning for DKA although his anion gap is not elevated and his bicarb is 27. His venous blood gas came back with a pH of 7.5, arguing against DKA, but his sugar had gone up to 520 on the chemistry just in the amount of time between drawling that and doing the BGT at 490. With IV fluids and Zofran he felt much better, he was able to drink fluids and eat without difficulty, I did put him jaiden insulin drip and continue checking his blood sugars every hour, because I wasnot able to rule out the possibility of this being an early DKA under the circumstances. With time his blood sugar came down to the 200s, his vital signsnormalized he felt much better, and repeat chemistry panel, everything has normalized. He is eating. He thinks the Naprosyn did this because it started afterwards. I doubt that it did but I think reasonable for him to avoid it for right now if he does not require it. Prescribe Zofran to use as needed stable for discharge. Lab Data Attestation: I reviewed the patient's lab results. Labs: Laboratory Results - last 24 hr 12/13/24 12/13/24 12/13/24 21:20 21:47 22:30 WBC 11.3 H RBC 5.93 Hgb 13.9 Hct 43.1 MCV 72.7 L MCH 23.4 L MCHC 32.3 RDW Std Deviation 38.6 RDW Coeff of Alec 15.2 H Plt Count 449 MPV 10.5 Immature Gran % (Auto) 0.300 Neut % (Auto) 53.8 Lymph % (Auto) 33.9 [place] % (Auto) 8.1 Eos % (Auto) 3.3 Baso % (Auto) 0.6 Absolute Neuts (auto) 6.1 Absolute Lymphs (auto) 3.83 Nucleated RBC % 0 Sodium 129 L Potassium 5.3 H Chloride 90 L Carbon Dioxide 27.2 Anion Gap 12 BUN 14 Creatinine 0.84 Estim Creat Clear Calc 96.24 Est GFR (MDRD) Non-Af 123 BUN/Creatinine Ratio 16.3 Glucose 520 H* Calcium 9.0 b-Hydroxybutyric mmol/L 1.7 Urine Color Straw Urine Clarity Clear Urine pH 7.0 Ur Specific Lily 1.005 Urine Protein 30 H Urine Glucose (UA) 1000 H Urine Ketones 5 H Urine Occult Blood 25 H Urine Nitrite Negative Urine Bilirubin Negative Urine Urobilinogen Normal Ur Leukocyte Esterase Negative Urine RBC 0 SEEN Urine WBC 0 SEEN Ur Squamous Epith Cells 0 SEEN Urine Bacteria 0 SEEN Urine Mucus 0 SEEN POC Glucose 490 H* 12/13/24 12/14/24 12/14/24 23:15 00:06 00:50 WBC RBC Hgb Hct MCV MCH MCHC RDW Std Deviation RDW Coeff of Alec Plt Count MPV Immature Gran % (Auto) Neut % (Auto) Lymph % (Auto) [place] % (Auto) Eos % (Auto) Baso % (Auto) Absolute Neuts (auto) Absolute Lymphs (auto) Nucleated RBC % Sodium 136 Potassium 3.6 Chloride 103 Carbon Dioxide 24.0 Anion Gap 9 BUN 10 Creatinine 0.64 L Estim Creat Clear Calc 126.32 Est GFR (MDRD) Non-Af 133 BUN/Creatinine Ratio 16.2 Glucose 275 H Calcium 7.8 b-Hydroxybutyric mmol/L Urine Color Urine Clarity Urine pH Ur Specific Lily Urine Protein Urine Glucose (UA) Urine Ketones Urine Occult Blood Urine Nitrite Urine Bilirubin Urine Urobilinogen Ur Leukocyte Esterase Urine RBC Urine WBC Ur Squamous Epith Cells Urine Bacteria Urine Mucus POC Glucose 433 H 337 H 12/14/24 01:02 WBC RBC Hgb Hct MCV MCH MCHC RDW Std Deviation RDW Coeff of Alec Plt Count MPV Immature Gran % (Auto) Neut % (Auto) Lymph % (Auto) [place] % (Auto) Eos % (Auto) Baso % (Auto) Absolute Neuts (auto) Absolute Lymphs (auto) Nucleated RBC % Sodium Potassium Chloride Carbon Dioxide Anion Gap BUN Creatinine Estim Creat Clear Calc Est GFR (MDRD) Non-Af BUN/Creatinine Ratio Glucose Calcium b-Hydroxybutyric mmol/L Urine Color Urine Clarity Urine pH Ur Specific Lily Urine Protein Urine Glucose (UA) Urine Ketones Urine Occult Blood Urine Nitrite Urine Bilirubin Urine Urobilinogen Ur Leukocyte Esterase Urine RBC Urine WBC Ur Squamous Epith Cells Urine Bacteria Urine Mucus POC Glucose 262 H ABG Data ABG results: ABG 12/13/24 22:29 Specimen Type JAIDEN Sample Site Not entered O2 % 21.0 VBG pH 7.50 H VBG pO2 76 H VBG HCO3 27 H VBG Total CO2 28 VBG O2 Sat (Calc) 96 H VBG Base Excess 4 H POC Mix VBG pCO2 Pt Tmp 34.4 L O2 Delivery Device Not entered Rhythm Strip Rhythm Strip: Sinus Tach Rate: 110 Ectopy: None EKG Initial EKG: Attestation: I personally reviewed and interpreted this EKG as follows: Interpretation: No Acute Injury Pattern and Sinus Tachycardia Comments: Some peaked T waves V2-V4, otherwise unremarkable with narrow QRS and no AV block Prior EKG tracings: available for review Prior: Unchanged Discharge Plan Triage Chief Complaint: Nausea/Vomiting ED Provider: Juan Rivas Dx/Rx/DC Orders Clinical Impression: Type 1 diabetes mellitus with hyperglycemia, Nausea & vomiting Instructions: ED Diabetic Hyperglycemia Prescriptions: New ondansetron 8 mg tablet,disintegrating 8 mg PO Q8H PRN (Reason: nausea and vomiting) Qty: 12 0RF Continued insulin lispro 100 UNIT/ML insulin pen 25 unit SQ TIDCM Rx Instructions: +SLIDING SCALE insulin glargine [Lantus Solostar U-100 Insulin] 100 unit/mL (3 mL) insulin pen 50 unit subcut QPM insulin glargine [Lantus U-100 Insulin] 100 unit/mL solution 35 unit subcut QHS insulin lispro 100 unit/mL solution 25 unit subcut TIDCM Patient Comments: inject 25 three times a day (DME) insulin syringe-needle U-100 [TRUEplus Insulin] 0.5 mL 31 gauge x 5/16" syringe 1 syringe MISCELLANEOUS 4X/DAY Discontinued naproxen 500 mg tablet 500 mg PO BID Qty: 10 0RF Primary Care Provider: Care Physician,No Primary Referrals: Doctor,Your [Non-Staff] - 1-2 Days if not improving Print Language: Hong Konger Disposition Disposition: Home, Self Care What to do if you have Problems For any increased pain, shortness of breath, bleeding, nausea or vomiting, chestpain, or any unexpected problems, contact your Primary Care Provider. Call [facility] ([phone]) or report to the closest Emergency Room. Call 911 if necessary. 12/14/24212 <Electronically signed by Juan Rivas MD> Cosigner Signature (if applicable): CC: No Primary Care Physician ~ Signed [facility] Work Phone: [phone] 342-933603-13-2025 Discharge summary [facility] Medical Records Department [address] [place] [id number] Emergency Department Summary 10/19/24 MR#: [id number] Acct: [id number] Name: UNA COSBY Rep #:[id number] : 1995 29 From: Keisha Maldonado PCP: Care Physician,No Primary Status :REG ER Location: ED HPI History of Present Illness Chief Complaint: Chest Pain Informant: patient Narrative Narrative: Patient is 29-year-old male with history of type 1 diabetes mellitus, palpitations and anxiety presenting with chest pain. Patient states that he is getting from his of 2 years. He found that she cheated on him. They have been arguing all day and he has been trying to block her number. She has continue to try to contact him. He states he lost it and started yelling/fighting with her. He then developed left sided chest pain. He describes it as it feels like there is a bullet in hischest or his chest to gethit by a sledgehammer. Denies any radiation of the pain. Does relic his heart is racing. States he has had issues with palpitations and elevated heart rate but they never been there for got a cause. This been going on for years. He does not take any cardiac medications. He denies any swelling of his legs. Denies history of DVT PE. States he does have some pain with deep breathing since this started. Denies any other complaints at this time. No fever or chills reported. No cough reported. States his blood sugar has been in the 200s to 300s but attributes that to stress. States has been taking hisinsulin. No other complaints or concerns reported at this time. [facility] Medical History Learning difficulty due to cognitive limitations H/O fracture of skull Anxiety Depression Septic shock Type 1 diabetes mellitus Type I diabetes mellitus, uncontrolled Home Medications ?Medication ?Instructions ?Recorded ?Last Taken ?Type insulin lispro 100 unit/mL 25 unit SQ TIDCM short acti ng 03/05/21 03/04/21 History subcutaneous pen insulin insulin glargine 100 unit/mL (3 50 unit subcut QPM linda betes 08/18/22 Unknown History mL) subcutaneous pen (Lantus Solostar U-100 Insulin) insulin glargine 100 unit/mL 35 unit subcut QHS Unknown History subcutaneous solution (Lantus U-100 Insulin) insulin lispro 100 unit/mL 25 unit subcut TIDCM Unknown History subcutaneous solution insulin syringe-needle U-100 0.5 10/19/24 Unknown His tory mL 31 gauge x /16" (TRUEplus Insulin) Allergy/AdvReac Type Severity Reaction Status Date / Time No Known Allergies Allergy Verified 10/19/24 00:16 Family History Father Diabetes Surgical History H/O skin graft Social History household members: family Smoking Status: Current some day smoker tobacco type: cigarettes, e-cigarettes and smokeless tobacco Smokeless tobacco user: chewing tobacco second hand exposure: Yes alcohol intake: never substance use type: does not use ROS ROS ED Constitutional Constitutional ED: Denies chills or fever(s) ENT ENT ED: Denies sore throat Cardiovascular Cardiovascular: Reports as per HPI, chest pain and racing heartbeat Respiratory/Chest Respiratory/Chest: Reports dyspnea; Denies cough Gastrointestinal Gastrointestinal: Denies abdominal pain, diarrhea, melena, nausea or vomiting Musculoskeletal Musculoskeletal: Denies arthralgias or myalgias Integumentary Denies rash Neurologic Neurologic: Denies weakness Psychiatric Psychiatric: Reports anxiety EXAM Physical Exam Const Vital Signs: 10/19/24 00:09 10/19/24 00:50 10/19/24 01:00 Temperature 97.6 F L Temperature Source Oral Pulse Rate 123 H 117 H Respiratory Rate 18 17 Blood Pressure 161/115 H 158/110 H Blood Pressure Mean 130 123 Pulse Ox 98 97 Oxygen Delivery Method Room Air Room Air Room Air 10/19/24 01:15 10/19/24 02:00 10/19/24 02:13 Temperature Temperature Source Pulse Rate 116 H 110 H 112 H Respiratory Rate 16 16 17 Blood Pressure 144/107 H 132/85 H 147/106 H Blood Pressure Mean 118 100 119 Pulse Ox 98 98 99 Oxygen Delivery Method Room Air Room Air Room Air 10/19/24 03:00 10/19/24 04:00 10/19/24 05:00 Temperature Temperature Source Pulse Rate 108 H 105 H 112 H Respiratory Rate 18 16 21 H Blood Pressure 119/84 H 133/90 H 133/89 H Blood Pressure Mean 95 104 103 Pulse Ox 99 97 94 Oxygen Delivery Method Room Air Room Air Room Air Positive well nourished and well developed General Appearance ED: well developed and NAD HEENT Reports moist mucous membranes Eyes PERRL Neck supple and no JVD Chest Wall inspection of chest normal and palpation of chest normal Resp normal respiratory effort and clear to auscultation bilaterally Cardio regular rhythm and no murmurs Rate: tachycardic GI normal to inspection, nondistended, normoactive bowel sounds, soft to palpation and non-tender Neuro oriented x3 Sensorium / Orientation: alert Psych mental status grossly normal Mood & Affect: anxious Skin no rashes or lesions noted and no wounds Heart Score History: Slightly/Non-Suspicious ECG: Normal Age: Risk Factors: 1 or 2 Risk Factors Troponin: Score: 1 MDM MDM MDM Narrative Medical decision making narrative: Patient valuate for chest pain that happened after arguing with his significant other. Upon arrivalpatient hypertensive and tachycardic. Does have a history of type 1 diabetes mellitus. States his blood sugar has been running higher butattributes this to stress. Differential includes ACS, pneumonia, pneumothorax, pulmonary emboli, DKA, hyperglycemia, dehydration. EKG shows sinus tachycardia with no acute ischemic changes. High-sensitivity troponin normal at 8 and then 9. He has a mild leukocytosis with a white blood cell count of 13.4 but no left shift. This appears chronic for the patient. Hemoglobin normal. CMP remarkable for mildly low bicarb of 20.5, mildly elevated anion gap of 17 and glucose of 458. He also pseudohyponatremia with a sodium of 129. Potassium is normal. Patient was initially ordered 1 L of IV fluid but a second liter is also ordered. Acetone and VBG added on. These are both largely normal and not consistent with DKA. Repeat blood glucose is now 312. Patient's tachycardia has improved. He looks better. Is given additional6 units of insulin. From a cardiac standpoint I do not suspect any acute process and can be discharged home.At this time I think patient had some dehydration and hyperglycemia but was not in DKA. Is counseled the importance of him drinking fluids and adhering to his insulin regiment. He verbalized agreement nursings plan. Will be discharged home. Given return precautions. Lab Data Attestation: I reviewed the patient's lab results. Labs: Laboratory Results - last 24 hr 10/19/24 10/19/24 10/19/24 00:24 02:23 03:21 WBC 13.4 H RBC 5.78 Hgb 13.4 Hct 43.5 MCV 75.3 L MCH 23.2 L MCHC 30.8 L RDW Std Deviation 43.9 RDW Coeff of Alec 16.5 H Plt Count 346 MPV 10.3 Immature Gran % (Auto) 0.400 Neut % (Auto) 63.5 Lymph % (Auto) 27.7 [place] % (Auto) 6.2 Eos % (Auto) 1.5 Baso % (Auto) 0.7 Absolute Neuts (auto) 8.5 H Absolute Lymphs (auto) 3.70 Nucleated RBC % 0 D-Dimer Quant (PE/DVT) 0.28 Sodium 129 L Potassium 4.1 Chloride 92 L Carbon Dioxide 20.5 L Anion Gap 17 H BUN 17 Creatinine 0.63 L Estim Creat Clear Calc 163.42 Est GFR (MDRD) Non-Af 134 BUN/Creatinine Ratio 26.8 H Glucose 458 H* Calcium 8.9 Troponin T High Sens 8 Troponin T Hi Sens 2 Hr 9 b-Hydroxybutyric mmol/L 0.6 Urine Color Yellow Urine Clarity Clear Urine pH 6.0 Ur Specific Lily 1.010 Urine Protein 100 H Urine Glucose (UA) 1000 H Urine Ketones 15 H Urine Occult Blood 25 H Urine Nitrite Negative Urine Bilirubin Negative Urine Urobilinogen Normal Ur Leukocyte Esterase Negative Urine RBC 0-5 SEEN Urine WBC 0 SEEN Ur Squamous Epith Cells 0-5 SEEN Urine Bacteria 1+ Urine Mucus 0 SEEN POC Glucose 312 H ABG Data ABG results: ABG 10/19/24 02:47 Specimen Type JAIDEN Sample Site Not entered VBG pH 7.36 VBG pO2 32 VBG HCO3 23 VBG Total CO2 25 VBG O2 Sat (Calc) 59 VBG Base Excess -2 L POC Mix VBG pCO2 Pt Tmp 41.4 O2 Delivery Device Room Air Radiography Chest X-Ray - ED: 2 View, Read by ED Physician, Read by Radiologist and No AcuteDisease Diagnostic Testing: Clinical Impression(s) from Imaging Studies Chest X-Ray 10/19/24 00:40 IMPRESSION: No evidence of acute disease. Reading Location: [facility] Rhythm Strip Rhythm Strip: Sinus Tach Rate: 118 Ectopy: None EKG Initial EKG: Attestation: I personally reviewed and interpreted this EKG as follows: Interpretation: Sinus Tachycardia Comments: Sinus tachycardia rate of 118 bpm Normal axis Normal intervals Normal ST segments Discharge Plan Triage Chief Complaint: Chest Pain ED Provider: Keisha Handy Dx/Rx/DC Orders Clinical Impression: Diabetes mellitus, Hyperglycemia, Tachycardia, Chest pain Instructions: ED Chest Pain, Uncertain Cause, ED Diabetic Hyperglycemia Prescriptions: No Action insulin lispro 100 UNIT/ML insulin pen 25 unit SQ TIDCM Rx Instructions: +SLIDING SCALE insulin glargine [Lantus Solostar U-100 Insulin] 100 unit/mL (3 mL) insulin pen 50 unit subcut QPM insulin glargine [Lantus U-100 Insulin] 100 unit/mL solution 35 unit subcut QHS insulin lispro 100 unit/mL solution 25 unit subcut TIDCM Patient Comments: inject 25 three times a day (DME) insulin syringe-needle U-100 [TRUEplus Insulin] 0.5 mL 31 gauge x 5/16" syringe 1 syringe MISCELLANEOUS 4X/DAY Primary Care Provider: Care Physician,No Primary Referrals: Deangelo Noel MD [Non-Staff] - Activity Restrictions/Additional Instructions: Your initial lab work was concerning for elevated blood sugar. You were not in DKA but likely were heading into it. You are given IV fluids and insulin in theemergency room. Please make sure you are drinking plenty of water and managing your blood sugar at home. If you feel you have worsening symptoms please returnto emergency room. Your cardiac workup was largely normal with no findings administrative personal assistant with heart attack or other acute cardiac/heart process Print Language: Hong Konger Disposition Disposition: Home, Self Care What to do if you have Problems For any increased pain, shortness of breath, bleeding, nausea or vomiting, chestpain, or any unexpected problems, contact your Primary Care Provider. Call [facility] ([phone]) or report tothe closest Emergency Room. Call 911 if necessary. 10/19/24 0526 Cosigner Signature (if applicable): CC: No Primary Care Physician ~ Signed [facility]03-13-2025 Radiology Diagnostic study note [facility] Imaging Services [address] [place] [address] Chest PA and Lateral MR#: [id number] Acct: [id number] Name: UNA COSBY Rep #: [id number] : 1995 M 29 From: Damian Massey MD PCP: Dr. Deangelo Noel MD Status: AR E ER Study:Chest PA and Lateral Date of Exam: 10/19/24 Exam# [id number] Ordering Dr: Danielle Handy DO PROCEDURE: CHEST PA AND LATERAL REASON FOR EXAM: CHEST PAIN TECHNIQUE: PA and lateral views of the chest. COMPARISON: 02/15/2023 FINDINGS: The lungs are clear. The cardiac and mediastinal contours are within limits. The visualized osseousstructures appear within limits. RAD/Chest PA and Lateral IMPRESSION: No evidence of acute disease. Reading Location: [id number] CC: Dr. Keisha Handy DO; Dr. Deangelo Noel MD ~ Director Of Dance: Signed [facility]05-28-[address] Zarate [facility] January 04, 2023 12:28am Note Date/Time January 03, 2023 11:04 pm [facility] Medical Records Department [address] [place] [address] Emergency Department Summary 01/03/23 MR#: [id number] Acct: [id number] Name: NUA COSBY Rep #:[id number] : 1995 27 From: Darren Maldonado PCP: Dr. Deangelo Noel MD Status:RE G ER Location: ED HPI History of Present Illness Chief Complaint: Chest Pain Informant: patient Onset/Context/Timing Onset: Today Activity at onset: sudden Timing: Continuous Quality: Positive for Sharp Location: Left Chest Worsened By: - (Standing) Relieved By: Nothing Associated Symptoms: Positive for Nausea, Vomiting, Dyspnea and Lightheadedness;Negative for Diaphoresis, Cough, Fever, Acid Reflux or Palpitations Narrative Narrative: Patient presents with chest pain that began today. Patient states it came on rather suddenly. Patient states it has been constant over the past 10 hours. Patient describes it as sharp. Patient states it is over the left side of his chest. Patient states it is worse with standing. Patient states nothing makes it better. Patient admits to some nausea and vomiting. Patient also admits to some shortness of breath and dizziness. Patient denies any fevers or chills. Patient denies any cough. Patient denies any palpitations. CVD Risk Factors: Positive for Diabetes and Smoking; Negative for Hypertension, Hypercholesterolemia or Family History 1' </=55 PE Risk Factors: Negative for Recent Travel/Surgery, Recent Immobilization, Prior DVT or PE, Cancer or OCP + Smoking + >/=35 PFSH PFSH Medical History Anxiety Depression H/O fracture of skull Learning difficulty due to cognitive limitations Septic shock Type 1 diabetes mellitus Type I diabetes mellitus, uncontrolled Home Medications ferrous sulfate 325 mg (65 mg iron) tablet (FeroSul) 325 mg PO DAILY supplement 03/05/21 [History Last Taken 03/04/21] insulin lispro 100 unit/mL subcutaneous pen 30 unit SQ TIDCM short acting insulin 03/05/21 [History Last Taken 03/04/21] sertraline 100 mg tablet 100 mg PO DAILY DEPRESSION 03/05/21 [History Last Taken 03/04/21] insulin glargine 100 unit/mL (3 mL) subcutaneous pen (Lantus Solostar U-100 Insulin) 50 unit subcut QPM diabetes 08/18/22 [History Last Taken Unknown] pantoprazole 40 mg tablet,delayed release (Protonix) 40 mg PO DAILY #60 tabs 08/20/22 [Rx Last Taken Unknown] potassium chloride 20 mEq tablet,extended release(part/cryst) (Klor-Con M) 20 meq PO BIDCM 30 days #60 tabs 08/20/22 [Rx Last Taken Unknown] gabapentin 300 mg capsule 300 mg PO QHS #14 caps 08/24/22 [Rx Last Taken Unknown] ondansetron 4 mg disintegrating tablet 4 mg PO Q8H PRN PRN Nausea #10 tabs 12/09/22 [Rx Last Taken Unknown] Allergy/AdvReac Type Severity Reaction Status Date / Time gluten AdvReac Nausea/Vom/ Verified 01/03/23 22:22 Diarrhea wheat AdvReac Nausea Verified 01/03/23 22:22 Family History Father Diabetes Surgical History H/O skin graft Social History household members: family Smoking Status: Current some day smoker tobacco type: cigarettes and smokeless tobacco Smokeless tobacco user: chewing tobacco second hand exposure: Yes alcohol intake: never substance use type: does not use ROS ROS ED Constitutional Constitutional ED: Denies chills or fever(s) Eyes Eyes: Denies blurry vision or change in vision ENT ENT ED: Denies rhinorrhea or sore throat Cardiovascular Cardiovascular: Reports chest pain; Denies palpitations Respiratory/Chest Respiratory/Chest: Reports dyspnea; Denies cough Gastrointestinal Gastrointestinal: Reports nausea and vomiting; Denies abdominal pain Genitourinary Genitourinary ED: Denies dysuria or hematuria Musculoskeletal Musculoskeletal: Denies back pain or neck pain Integumentary Denies abscess or rash Neurologic Neurologic: Denies headache(s) or weakness Allergic/Immunologic Allergic/Immunologic ED: Denies mouth swelling or urticaria EXAM Physical Exam Const Vital Signs: 01/03/23 22:18 01/03/23 22:21 01/03/23 22:42 Temperature 96.6 F L Temperature Source Temporal Pulse Rate 124 H Respiratory Rate 12 Respiratory Effort Normal Blood Pressure 145/99 H Blood Pressure Mean 114 Pulse Ox 98 Oxygen Delivery Method Room Air Room Air 01/03/23 23:17 Temperature Temperature Source Pulse Rate 110 H Respiratory Rate 16 Respiratory Effort Blood Pressure 133/94 H Blood Pressure Mean 107 Pulse Ox 98 Oxygen Delivery Method Room Air Positive well nourished and well developed General Appearance ED: well developed and NAD HEENT normocephalic and atraumatic Eyes PERRL and EOMs intact bilaterally Neck supple and no JVD Chest Wall palpation of chest normal Resp normal respiratory effort and clear to auscultation bilaterally Effort and Inspection: Negative for respiratory distress Cardio regular rhythm Rate: tachycardic GI normal to inspection, nondistended, normoactive bowel sounds, soft to palpation,non-tender and non-distended Extremity normal to inspection General Extremety ED: Negative for edema or tenderness General Extremity: Negative for edema Neuro oriented x3, CN's II-XII intact bilaterally and no sensory deficits noted Sensorium / Orientation: awake and alert Motor Exam: strength 5/5 throughout Psych mental status grossly normal Heart Score History: Slightly/Non-Suspicious ECG: Normal Age: </= 45 years Risk Factors: >/= 3 Risk Factors or History of CAD Troponin: </= Normal Limit Score: 2 MDM MDM MDM Narrative Medical decision making narrative: Differential diagnosis includes cardiac dysrhythmia, cardiac ischemia, anxiety, musculoskeletal pain, pneumonia, pneumothorax, and pleurisy. EKG will be obtained to assess for cardiac dysrhythmia and cardiac ischemia. Chest x-ray will be obtained to assess for pneumonia and pneumothorax. CBC will be obtainedto assess for leukocytosis and anemia. Basic metabolic profile will be obtainedto assess for electrolyte abnormality and renal function. High-sensitivity troponin will be obtained to assess for cardiac ischemia. Lab Data Attestation: I reviewed the patient's lab results. Lab results narrative: CBC was reviewed. There is a mild leukocytosis of 12.1. Hemoglobin was 12.7 and hematocrit was 39.9. Platelets were normal. Basic metabolic profile was reviewed. Glucose was 504. There is a mild hyponatremia of 132. Anion gap wasnormal. CO2 was normal. The remainder was within normal limits. High-sensitivity troponin was normal at 4. Labs: Laboratory Results - last 24 hr 01/03/23 01/03/23 22:27 22:27 WBC 12.1 H RBC 4.87 Hgb 12.7 L Hct 39.9 L MCV 81.9 MCH 26.1 L MCHC 31.8 L RDW Std Deviation 41.9 RDW Coeff of Alec 14.3 Plt Count 357 MPV 10.6 Immature Gran % (Auto) 0.300 Neut % (Auto) 45.8 L Lymph % (Auto) 42.3 H [place] % (Auto) 7.8 Eos % (Auto) 3.2 Baso % (Auto) 0.6 Absolute Neuts (auto) 5.5 Absolute Lymphs (auto) 5.11 H Nucleated RBC % 0 Differential Comment SCANNED Sodium 132 L Potassium 4.7 Chloride 97 L Carbon Dioxide 23.0 Anion Gap 12 BUN 15 Creatinine 0.87 Estim Creat Clear Calc 122.45 Est GFR (MDRD) Af Amer 136 Est GFR (MDRD) Non-Af 113 BUN/Creatinine Ratio 17.2 Glucose 504 H* Calcium 8.6 Troponin I High Sens 4 Radiography Diagnostic Testing: Clinical Impression(s) from Imaging Studies Chest X-Ray 01/03/23 22:35 IMPRESSION: No acute radiographic abnormalities. Electronically Signed: Maykel Hoang MD at 23:16 EDT , Portable 1 view chest x-ray was obtained. On my independent interpretation, lung serna are clear. There is normal cardiac silhouette. Bony thorax is normal. There is no acute process noted. Radiologist also interpreted the x-ray and agrees. EKG Initial EKG: Attestation: I personally reviewed and interpreted this EKG as follows: Interpretation: No Acute Injury Pattern and Sinus Tachycardia (117) Comments: EKG was obtained. On my independent interpretation, it showed asinus tachycardia with a rate of 117. AR interval, QRS interval, and QTc intervals were all normal. [place] was normal. There are no acute ST or T wave changes. Prior EKG tracings: available for review Prior: Unchanged (12/09/2022) Treatment and Re-Evaluation :: Patient was given aspirin here. Patient was given a dose of insulin here. Patient's heart rate improved after this. Patient was feeling better on reevaluation. Patient was advised of his findings. Patient has a HEART score of 2. Patient was advised that this is low risk for acute cardiac event. Patient was instructed to continue to monitor his blood sugars. Patient was instructed to follow-up with his primary care physician in 5 to 7 days. Patientunderstood and was agreeable with the plan. All questions were answered. Discharge Plan Triage Chief Complaint: Chest Pain ED Provider: Darren Zarate Dx/Rx/DC Orders Clinical Impression: Chest pain, Hyperglycemia Instructions: ED Chest Pain, Uncertain Cause, ED Diabetic Hyperglycemia Prescriptions: No Action ferrous sulfate [FeroSul] 325 mg (65 mg iron) tablet 325 mg PO DAILY sertraline 100 mg tablet 100 mg PO DAILY Label Comments: Take 1 tablet by mouth once daily. insulin lispro 100 UNIT/ML insulin pen 30 unit SQ TIDCM Rx Instructions: +SLIDING SCALE insulin glargine [Lantus Solostar U-100 Insulin] 100 unit/mL (3 mL) insulin pen 50 unit subcut QPM potassium chloride [Klor-Con M20] 20 mEq Tablet,Er Particles/Crystals 20 meq PO BIDCM 30 Days Qty: 60 0RF pantoprazole [Protonix] 40 mg tablet,delayed release (DR/EC) 40 mg PO DAILY Qty: 60 0RF gabapentin 300 mg capsule 300 mg PO QHS Qty: 14 0RF ondansetron 4 mg tablet,disintegrating 4 mg PO Q8H PRN PRN (Reason: Nausea) Qty: 10 0RF Primary Care Provider: Deangelo Noel Referrals: Deangelo Noel MD [Primary Care Provider] - 3-5 Days Disposition Disposition: Home, Self Care What to do if you have Problems For any increased pain, shortness of breath, bleeding, nausea or vomiting, chestpain, or any unexpected problems, contact your Primary Care Provider. Call [facility] ([phone]) or report to the closest Emergency Room. Call 911 if necessary. 01/04/23 002 <Electronically signed by Darren Zarate DO> Cosigner Signature (if applicable): CC: Dr. Deangelo Noel MD ~ Signed [facility] Work Phone: 1(272) 216-937904-27-[address] Calvillo [facility] December 03, 2022 11:22pm Note Date/Time December 03, 2022 9:2 1pm [facility] Medical Records Department [address] [place] [id number] Emergency Department Summary 12/03/22 MR#: [id number] Acct: [id number] Name: UNA COSBY Rep #:[id number] : 1995 27 From: Edgar Calvillo DO PCP: Dr. Deangelo Noel MD Status:RE G ER Location: ED HPI History of Present Illness Chief Complaint: Chest Pain Narrative Narrative: 27-year-old male presenting with chest pain. He described it as stabbing in thecenter of his chest. He has a history of type 1 diabetes. He states he has no other medical problems. He does state that his mother of a massive heart attack when she was 26. He states that his father has cardiac. Patient states the onset of this was a couple of hours ago. He denies any fevers or chills. He denies any nausea or vomiting. He does state he is mildly short of breath. He states that he had tachycardia in the past and has worn a Holter monitor. There was no findings such as A-fib. He states he has not followed up with his PCP for stress test. He has not seen cardiology. He states he smokes occasionally. He is not an everyday smoker. Denies drug use. No history of DVT/PE. [facility] Medical History Anxiety Depression H/O fracture of skull Learning difficulty due to cognitive limitations Septic shock Type 1 diabetes mellitus Type I diabetes mellitus, uncontrolled Home Medications ferrous sulfate 325 mg (65 mg iron) tablet (FeroSul) 325 mg PO DAILY supplement 03/05/21 [History Last Taken 03/04/21] insulin lispro 100 unit/mL subcutaneous pen 30 unit SQ TIDCM short acting insulin 03/05/21 [History Last Taken 03/04/21] sertraline 100 mg tablet 100 mg PO DAILY DEPRESSION 03/05/21 [History Last Taken 03/04/21] insulin glargine 100 unit/mL (3 mL) subcutaneous pen (Lantus Solostar U-100 Insulin) 50 unit subcut QPM diabetes 08/18/22 [History Last Taken Unknown] pantoprazole 40 mg tablet,delayed release (Protonix) 40 mg PO DAILY #60 tabs 08/20/22 [Rx Last Taken Unknown] potassium chloride 20 mEq tablet,extended release(part/cryst) (Klor-Con M) 20 meq PO BIDCM 30 days #60 tabs 08/20/22 [Rx Last Taken Unknown] gabapentin 300 mg capsule 300 mg PO QHS #14 caps 08/24/22 [Rx Last Taken Unknown] Allergy/AdvReac Type Severity Reaction Status Date / Time gluten AdvReac Nausea/Vom/ Verified 08/18/22 09:37 Diarrhea wheat AdvReac Nausea Verified 08/18/22 09:37 Family History Father Diabetes Surgical History H/O skin graft Social History household members: family Smoking Status: Current some day smoker tobacco type: cigarettes and smokeless tobacco Smokeless tobacco user: chewing tobacco second hand exposure: Yes alcohol intake: never substance use type: does not use ROS ROS ED Constitutional Constitutional ED: Denies chills or fever(s) Eyes Eyes: Denies blurry vision or change in vision ENT ENT ED: Denies rhinorrhea or sore throat Cardiovascular Cardiovascular: Reports as per HPI Respiratory/Chest Respiratory/Chest: Reports dyspnea; Denies cough Gastrointestinal Gastrointestinal: Denies abdominal pain, nausea or vomiting Genitourinary Genitourinary ED: Denies dysuria or hematuria Musculoskeletal Musculoskeletal: Denies arthralgias or back pain Integumentary Denies abscess or Abrasions Neurologic Neurologic: Denies headache(s) or paresthesias Psychiatric Psychiatric: Denies anxiety or depression EXAM Physical Exam Const Vital Signs: 12/03/22 20:03 12/03/22 20:07 12/03/22 20:35 Temperature 97.9 F Temperature Source Temporal Pulse Rate 119 H Respiratory Rate 18 Respiratory Effort Non-Labored Blood Pressure 131/86 H Blood Pressure Mean 101 Pulse Ox 100 100 Oxygen Delivery Method Room Air Room Air 12/03/22 20:58 12/03/22 22:45 Temperature Temperature Source Pulse Rate 121 H 104 H Respiratory Rate 16 18 Respiratory Effort Blood Pressure 150/96 H 127/84 H Blood Pressure Mean 114 98 Pulse Ox 100 97 Oxygen Delivery Method Room Air Room Air Heart Score History: Slightly/Non-Suspicious ECG: Normal Age: </= 45 years Risk Factors: 1 or 2 Risk Factors Troponin: </= Normal Limit Score: 1 MDM MDM MDM Narrative Medical decision making narrative: Patient presenting with chest pain. Differential diagnosis includes but is not limited to ACS, PE, pneumonia, costochondritis. CBC to assess white blood cell count, hemoglobin, differential. BMP to assess renal function, electrolytes, glucose, anion gap. High-sensitivity troponin obtained as well. Chest x-ray was also obtained. CBC shows slight leukocytosis at 13.8. Hemoglobin hematocrit stable. Platelets are normal. Renal function electrolytes within normal limits. High-sensitivity troponin is 3. CTA of the chest was obtained which shows no PE or dissection. There is no other acute process. Patient is feeling better after IV fluids and Toradol. Patient counseled on findings. Recommended close outpatient follow-up with PCP. Return precautions discussed. Impression: 1. Chest pain Lab Data Attestation: I reviewed the patient's lab results. Labs: Laboratory Results - last 24 hr 12/03/22 12/03/22 12/03/22 20:35 20:35 21:38 WBC 13.8 H RBC 5.14 Hgb 13.2 Hct 43.2 MCV 84.0 MCH 25.7 L MCHC 30.6 L RDW Std Deviation 41.1 RDW Coeff of Alec 13.4 Plt Count 348 MPV 10.9 Immature Gran % (Auto) 0.400 Neut % (Auto) 62.3 Lymph % (Auto) 26.9 [place] % (Auto) 8.0 Eos % (Auto) 2.0 Baso % (Auto) 0.4 Absolute Neuts (auto) 8.6 H Absolute Lymphs (auto) 3.71 Nucleated RBC % 0 D-Dimer Quant (PE/DVT) 0.40 Sodium 138 Potassium 3.6 Chloride 105 Carbon Dioxide 28.0 Anion Gap 5 BUN 11 Creatinine 0.66 L Estim Creat Clear Calc 159.00 Est GFR (MDRD) Af Amer 187 Est GFR (MDRD) Non-Af 155 BUN/Creatinine Ratio 16.6 Glucose 64 L Calcium 8.9 Troponin I High Sens 3 Radiography Diagnostic Testing: Clinical Impression(s) from Imaging Studies Chest X-Ray 12/03/22 20:20 IMPRESSION: No radiographic evidence of acute cardiopulmonary disease. Electronically Signed: Ted Dawson MD at 20:53 EDT , Chest CTA 12/03/22 21:23 IMPRESSION: Negative CTA chest. Electronically Signed: Ted Daswon MD at 22:33 EDT , Discharge Plan Triage Chief Complaint: Chest Pain ED Provider: Edgar Calvillo Dx/Rx/DC Orders Instructions: ED Chest Pain, Noncardiac Prescriptions: No Action ferrous sulfate [FeroSul] 325 mg (65 mg iron) tablet 325 mg PO DAILY sertraline 100 mg tablet 100 mg PO DAILY Label Comments: Take 1 tablet by mouth once daily. insulin lispro 100 UNIT/ML insulin pen 30 unit SQ TIDCM Rx Instructions: +SLIDING SCALE insulin glargine [Lantus Solostar U-100 Insulin] 100 unit/mL (3 mL) insulin pen 50 unit subcut QPM potassium chloride [Klor-Con M20] 20 mEq Tablet,Er Particles/Crystals 20 meq PO BIDCM 30 Days Qty: 60 0RF pantoprazole [Protonix] 40 mg tablet,delayed release (DR/EC) 40 mg PO DAILY Qty: 60 0RF gabapentin 300 mg capsule 300 mg PO QHS Qty: 14 0RF Primary Care Provider: Deangelo Noel Referrals: Deangelo Noel MD [Primary Care Provider] - Disposition Disposition: Home, Self Care What to do if you have Problems For any increased pain, shortness of breath, bleeding, nausea or vomiting, chestpain, or any unexpected problems, contact your Primary Care Provider. Call [facility] ([phone]) or report to the closest Emergency Room. Call 911 if necessary. 12/03/222321 <Electronically signed by Edgar Calvillo DO> Cosigner Signature (if applicable): CC: Dr. Deangelo Noel MD ~ Signed [facility] Work Phone: 1(114) 740-779602-27-2023 Miscellaneous Notes* Telephone Encounter - Lilly Sutherland MA - 10/05/2022 10:01 AM EST Patient notified and voiced understanding. Lilly Sutherland MA Letter taken to [facility] records. Lilly Sutherland MA * Telephone Encounter - Phillip Howe APRN.ANNA - 10/05/2022 9:45 AM EST Letter printed. Can we reach out to him and let him know that he is not a patient anymore within family medicine. He has been terminated from our practice due to excessive no- shows. He needs to get a new PCP within Internal Medicine here or at another office. He cannot get any further refills or appointments with anyone in family medicine. Phillip Howe APRN.CNP * Telephone Encounter - Julius Luis - 10/03/2022 2:55 PM EST Pt is trying to get a new social security card and must have a letter from a physician. The letter must include -typed on letterhead -must include pt's name -must clearly state that the pt is a pt at the [facility] -letter must be within the last 4 years -letter must be signed and dated by doctor or staff member There is no PCP listed under the pt but has been seen by Dr. Noel's in the past. Please call pt with any information. documented [facility] Miscellaneous Notes* Telephone Encounter - Rajwinder Rosales LPN - 09/22/2022 1:05 PM EST TC to pt. Left a detailed message on a secure line with updates. Rajwinder Rosales LPN * Telephone Encounter - Phillip Howe APRN.CNP - 09/22/2022 12:46 PM EST Patient has an upcoming visit with myself. Unfortunately, due to his large amount of no-shows, he has been terminated from our family practice. We are canceling the appointment and he will need to find a new PCP. Can establish with internal medicine. Phillip Howe APRN.CNP documented in this encounterMer[facility]01-16-2023 Miscellaneous Notes* Telephone Encounter - Phillip Howe APRN.CNP - 08/24/2022 9:09 AM EST Upcoming visit. The following approved medication requests have been transmitted electronically. Requested Prescriptions Pending Prescriptions Disp Refills insulin lispro (HUMALOG KWIKPEN) 100 unit/mL [Pharmacy Med Name: insulin lispro (U-100) 100 unit/mLsubcutaneous pen] 30 mL 1 Sig: Inject 30 Units subcutaneously three times daily before meals. Give along with SSI coverage Phillip Howe APRN.ANNA * Telephone Encounter - Rajwinder Rosales LPN - 08/24/2022 8:46 AM EST Patient phones requesting refills as follows: Requested Prescriptions Pending Prescriptions Disp Refills insulin lispro (HUMALOG KWIKPEN) 100 unit/mL [Pharmacy Med Name: insulin lispro (U-100) 100 unit/mLsubcutaneous pen] 30 mL 1 Sig: Inject 30 Units subcutaneously three times daily before meals. Give along with SSI coverage DAVID-06/09/22 Labs-06/09/22 NOV-09/10/22 med filled 07/07/22 Please review and advise. Rajwinder Rosales LPN documented in this encounterMer[facility]12-01-2022 Miscellaneous Notes* Telephone Encounter - Parvin Hannah Ma - 07/09/2022 2:05 PM EST PA received from pharmacy but when accessing it through [facility] PA not needed. Did verifywith pharmacy medication goes through with no issue an is covered. Parvin Hannah Ma documented in this encounterMer[facility]11-29-2022 History of Present illness Narrative* Phillip Howe APRN.CNP - 07/07/2022 2:00 PM EST Patient came to appointment today. He was in the [facility] 1 1/2 hours ago with complaints of chest pain, shortness of breath and "lungs filling up with fluids". Had been out of his insulin for a few days. He was triaged by a provider in [facility] and sent to the ER. I discussed with him that he was given a recommendation to go to the ER due to the nature of his complaints and his risk factors. I will send in some insulin but I encouraged him to go to the ER for evaluation. He verbalized that he did not want to spend the night. I voiced that I understood but the hospital would need to make that consideration. The following approved medication requests have been transmitted electronically. Requested Prescriptions Signed Prescriptions Disp Refills insulin glargine (LANTUS SOLOSTAR U-100 INSULIN) 100 unit/mL (3 mL) 4 Each 1 Sig: Inject 40 Units subcutaneously every morning. insulin lispro (HUMALOG KWIKPEN INSULIN) 100 unit/mL 30 mL 1 Sig: Inject 30 Units subcutaneously three times daily before meals. Give along with SSI coverage Insulin [place], Disposable, (BD ULTRAFINE III MINI PEN) 31 gauge x 3/16" 100 Each 11 Sig: as directed for insulin injections 3 times a day Insulin Syringe-Needle U-100 (BD INSULIN SYRINGE ULTRAFINE) 0.3 mL 31 gauge x 5/16" 100 Each 11 Sig: Use 4 times daily and prn Phillip Howe APRN.ANNA documented in this encounterMer[facility]11-29-2022 History of Present illness Narrative* Isaiah Caldera APRN.CNP - 07/07/2022 12:09 PM EST Patient triaged at [facility]. States has not taken insulin for few days/out of medicine. Reports"lungs are filling up with fluid" and reports constant chest pain. I will refer to ER. Mildly ill appearing but no distress. documented in this encounterMercer [facility]11-04-2022 Miscellaneous Notes* Telephone Encounter - Meri Mckinney MA - 06/12/2022 9:32 AM EDT Patient notified of results, verbalizes understanding of instructions. Meri Mckinney MA * Telephone Encounter - Deangelo Noel MD - 06/11/2022 5:43 PM EDT Please notify patient that his labs show that his A1c is still high at 9.9, although better than before. His blood sugar the morning he has labs done was very high at 555. Keep working on controllinghis sugars, and follow up in 3 months as planned Deangelo Noel MD documented in this encounterMercer County [facility] Hospital11-01-2022 Miscellaneous Notes* Telephone Encounter - Deangelo Noel MD - 06/09/2022 5:01 PM EDT Noted No action needed; pt was clinically stable today. Not compliant with medications and frequently runs high, so this is not unusual for him. Deangelo Noel MD * Telephone Encounter - Marcy Ponce LPN - 06/09/2022 4:31 PM EDT Patient s identity has been confirmed by name and birthdate: Yes Call received from [facility] at 4:33 PM to report an urgent value for glucose with a result of 555. Dr. Noel was notified of the result at 4:34PM. Marcy Ponce Lpn documented in this encounterMercer County [facility] Hospital11-01-2022 Miscellaneous Notes* Telephone Encounter - Phillip Howe APRN.PLASTER MACHINE TENDER - 06/09/2022 10:53 AM EDT The following approved medication requests have been transmitted electronically. Requested Prescriptions Pending Prescriptions Disp Refills Insulin [place], Disposable, (BD ULTRAFINE III MINI PEN) 31 gauge x 3/16" 100 Each 11 Sig: as directed for insulin injections 3 times a day Insulin Syringe-Needle U-100 (BD INSULIN SYRINGE ULTRAFINE) 0.3 mL 31 gauge x 5/16" 100 Each 11 Sig: Use 4 times daily and prn Refused Prescriptions Disp Refills insulin glargine (LANTUS SOLOSTAR U-100 INSULIN) 100 unit/mL (3 mL) 4 Each 0 Sig: Inject 40 Units subcutaneously every morning. Refused By: SABRINA SOUSA MA Reason for Refusal: Request already responded to by other means (for example, phone, fax) blood sugar diagnostic (BLOOD GLUCOSE TEST) test strip 50 Strip 11 Sig: Test blood sugar(s) 4 times daily. Dx: Type 1 DM - Controlled E10.9 Insulin: Yes Refused By: SABRINA SOUSA MA Reason for Refusal: Request already responded to by other means (for example, phone, fax) insulin lispro (HUMALOG KWIKPEN INSULIN) 100 unit/mL 30 mL 0 Sig: Inject 30 Units subcutaneously three times daily before meals. Give along with SSI coverage Refused By: SABRINA SOUSA MA Reason for Refusal: Request already responded to by other means (for example, phone, fax) sertraline (ZOLOFT) 100 mg tablet 30 tablet 0 Sig: Take 1 tablet by mouth once daily. Refused By: SABRINA SOUSA MA Reason for Refusal: Request already responded to by other means (for example, phone, fax) ibuprofen (MOTRIN) 600 mg tablet 45 tablet 0 Sig: Take 1 tablet by mouth every 6 hours as needed. Refused By: SABRINA SOUSA MA Reason for Refusal: Request already responded to by other means (for example, phone, fax) Lancets lancets 100 Each 11 Sig: Use as instructed up to 4 times daily Refused By: SABRINA SOUSA MA Reason for Refusal: Request already responded to by other means (for example, phone, fax) Lancets lancets 100 Each 11 Sig: Test blood sugar(s) 4 times daily. Dx: Type 1 DM - Controlled E10.9 Insulin: Yes Refused By: SABRINA SOUSA MA Reason for Refusal: Request already responded to by other means (for example, phone, fax) Phillip Howe APRN.CNP * Telephone Encounter - Sabrina Sousa Ma - 06/09/2022 10:42 AM EDT All of these were refilled today except the needles and syringes. Sabrina Sousa Ma * Telephone Encounter - Sindy Brar Pss - 06/07/2022 10:47 AM EDT Patient has been identified by name and date of : Yes Last office visit in this department: 06/25/2021 RX INSTRUCTIONS: Patient aware RX will be sent to pharmacy. No need to notify patient. Patient phones requesting refills as follows: Requested Prescriptions Pending Prescriptions Disp Refills insulin glargine (LANTUS SOLOSTAR U-100 INSULIN) 100 unit/mL (3 mL) 4 Each 0 Sig: Inject 40 Units subcutaneously every morning. blood sugar diagnostic (BLOOD GLUCOSE TEST) test strip 50 Strip 11 Sig: Test blood sugar(s) 4 times daily. Dx: Type 1 DM - Controlled E10.9 Insulin: Yes insulin lispro (HUMALOG KWIKPEN INSULIN) 100 unit/mL 30 mL 0 Sig: Inject 30 Units subcutaneously three times daily before meals. Give along with SSI coverage Insulin [place], Disposable, (BD ULTRAFINE III MINI PEN) 31 gauge x 3/16" 100 Each 11 Sig: as directed for insulin injections 3 times a day Insulin Syringe-Needle U-100 (BD INSULIN SYRINGE ULTRAFINE) 0.3 mL 31 gauge x 5/16" 100 Each 11 Sig: Use 4 times daily and prn sertraline (ZOLOFT) 100 mg tablet 30 tablet 0 Sig: Take 1 tablet by mouth once daily. ibuprofen (MOTRIN) 600 mg tablet 45 tablet 0 Sig: Take 1 tablet by mouth every 6 hours as needed. Lancets lancets 100 Each 11 Sig: Use as instructed up to 4 times daily Lancets lancets 100 Each 11 Sig: Test blood sugar(s) 4 times daily. Dx: Type 1 DM - Controlled E10.9 Insulin: Yes Please review and advise. Sindy Brar Pss documented in this encounterMercer County [facility] Hospital10-30-2022 Miscellaneous Notes* Telephone Encounter - Radha Hameed APRN.CNP - 06/07/2022 11:09 AM EDT Medications reordered today, needs appointment for further refills. Radha Hameed APRN.CNP documented in this encounterMercer County Community Hospital07-27-2022 History of Present illness Narrative* Rajwinder Rosales LPN - 03/04/2022 9:29 AM EDT TRANSITION CARE MANAGEMENT (TCM) INITIAL CONTACT Entry Level Paralegal Outreach Provider Action/FYI: Unable to reach Pt. mailbox is not set up and and other number not working. Called X2 Initial contact with patient post discharge, spoke to . Patient identified by name and . TRANSITION CARE MANAGEMENT INITIAL OUTREACH DOCUMENTATION: No flowsheet data found. SUMMARY: -Pt discharged from [facility] on 03/03/22. -Admitted for: High blood surgars Do you have a hospital follow up appointment with your PCP? Appointment on 03/16/22 with Meena Recinos. MEDICATIONS: Many patients have questions or concerns about their medications once they are home. Were you prescribed any new medications? Were you told to hold any medications? Were any of your medications discontinued? Do you have any questions about getting or taking your medications? Your discharge instructions/After visit Summary (AVS) are important in guiding you through the recovery process. Is there anything I might help you understand? Do you have all the necessary equipment and supplies at home? Medical records from recent hospitalization: documented in this encounterMercer [facility]04-12-2022 History of Present illness Narrative* Sabrina Sousa Ma - 11/18/2021 11:11 AM EDT POPULATION HEALTH NAVIGATION OUTREACH Action/FYI 11/17/21-tried to reach pt, VM not set up. 11/18/21-Letter mailed to pt home notifying pt he is due for appt. Pt identified by name and : NO Outreach Outcome/Action Unable to reach patient: Phone number not valid / voicemail full Letter mailed Reason for Outreach Care Gap or Scheduling/Wellness visits Payer: Payor: [place] / Plan: [employer] MEDICA[employer] / Product Type: Medicaid / Care Gap Reviewed:: Annual Wellness visit Reminder: Reminder note to check Health Maintenance for items below Health Maintenance items due: COVID-19 VACCINE(1) Never done MENINGOCOCCAL B: Consider based on risk(1 of 2 - Risk Bexsero 2-dose series) Never done ONE PNEUMOVAX PRIOR TO AGE 65 Never done HPV VACCINE(3 - Male 3-dose series) due on 10/02/2013 HEPATITIS C SCREENING Never done HIV SCREENING Never done DILATED RETINAL EXAM due on 05/11/2017 DEPRESSION SCREENING due on 06/22/2019 DIABETIC FOOT EXAM due on 09/22/2020 HBA1C due on 04/10/2021 Sabrina Sousa Ma November 18, 2021 11:11 AM * Rajwinder Rosales LPN - 11/17/2021 11:51 AM EDT TC to Pt. Unable to LM due to the mailbox is not set up. Will try again later. Rajwinder Rosales LPN * Phillip Howe APRN.CNP - 11/17/2021 10:55 AM EDT STAMP Please reach out to patient for overdue appointment for chronic disease management with myself, , or Meena Recinos. Labs are ordered. If he/she is no longer following with Dr. Noel, please remove name from PCP field. Phillip Howe APRN.CNP documented in this encounterMercer County Community Hospital11-29-2021 Miscellaneous Notes* Telephone Encounter - Phillip Howe APRN.CNP - 07/07/2021 2:00 PM EST Okay to switch to Lantus Solostar. New Rx sent. The following approved medication requests have been transmitted electronically. Signed Prescriptions Disp Refills insulin glargine (LANTUS SOLOSTAR U-100 INSULIN) 100 unit/mL (3 mL) 4 Pen 3 Sig: Inject 40 Units subcutaneously every morning. Authorizing Provider: PHILLIP HOWE APRN.ANNA * Telephone Encounter - Delaney Ordoñez LPN - 06/26/2021 6:56 PM EST DM sends fax stating Basaglar is not covered. Preferred drugs are: Lantus Solostar Levemir FlexTouch Lantus Levemir Please advise. [id number] If unable to switch to a preferred drug and a PA is needed, please have office staff complete as I am out of the office until Sunday 07/01. Patricia Ordoñez LPN documented in this encounterMercer County [facility] Hospital10-21-2010 History of Past illness Narrative* Problem Noted Date Resolved Date Diabetes mellitus type 1 with ketoacidosis 05/2905/29/2010 documented as of this encounter (statuses as of 11/18/2021) [facility] of Past illness Narrative* Problem Noted Date Resolved Date Diabetes mellitus type 1 with ketoacidosis 05/2905/29/2010 documented as of this encounter (statuses as of 12/09/2021) [facility] of Past illness Narrative* Problem Noted Date Resolved Date Diabetes mellitus type 1 with ketoacidosis 05/2905/29/2010 documented as of this encounter (statuses as of 04/06/2022) [facility] of Past illness Narrative* Problem Noted Date Resolved Date Diabetes mellitus type 1 with ketoacidosis 05/2905/29/2010 documented as of this encounter (statuses as of 06/07/2022) [facility] of Past illness Narrative* Problem Noted Date Resolved Date Diabetes mellitus type 1 with ketoacidosis 05/2905/29/2010 documented as of this encounter (statuses as of 06/09/2022) [facility] of Past illness Narrative* Problem Noted Date Resolved Date Diabetes mellitus type 1 with ketoacidosis 05/2905/29/2010 documented as of this encounter (statuses as of 06/09/2022) [facility] of Past illness Narrative* Problem Noted Date Resolved Date Diabetes mellitus type 1 with ketoacidosis 05/2905/29/2010 documented as of this encounter (statuses as of 06/12/2022) [facility] of Past illness Narrative* Problem Noted Date Resolved Date Diabetes mellitus type 1 with ketoacidosis 05/2905/29/2010 documented as of this encounter (statuses as of 07/07/2022) [facility] of Past illness Narrative* Problem Noted Date Resolved Date Diabetes mellitus type 1 with ketoacidosis 05/2905/29/2010 documented as of this encounter (statuses as of 07/07/2022) [facility] of Past illness Narrative* Problem Noted Date Resolved Date Diabetes mellitus type 1 with ketoacidosis 05/2905/29/2010 documented as of this encounter (statuses as of 07/09/2022) [facility] of Past illness Narrative* Problem Noted Date Resolved Date Diabetes mellitus type 1 with ketoacidosis 05/2905/29/2010 documented as of this encounter (statuses as of 08/24/2022) [facility] of Past illness Narrative* Problem Noted Date Resolved Date Diabetes mellitus type 1 with ketoacidosis 05/2905/29/2010 documented as of this encounter (statuses as of 09/25/2022) [facility] of Past illness Narrative* Problem Noted Date Resolved Date Diabetes mellitus type 1 with ketoacidosis 05/2905/29/2010 documented as of this encounter (statuses as of 10/05/2022) [facility] of Past illness Narrative* Problem Noted Date Resolved Date Diabetes mellitus type 1 with ketoacidosis 05/2905/29/2010 documented as of this encounter (statuses as of 10/06/2022) [facility] HospitalDischarge summary Author Sandy Colinine [facility] November 17, 2022 2:01am Note Date/Time November 17, 2022 1:1 8am [facility] Medical Records Department [address] [place] [address] Emergency Department Summary 11/17/22 MR#: [id number] Acct: [id number] Name: UNA COSBY Rep #:[id number] : 1995 27 From: Jimmie Palomino MD PCP: Deangelo Noel MD Status:REG ER Location: ED HPI History of Present Illness Chief Complaint: Chest Pain Informant: patient Narrative Narrative: Patient presents with more episodes of chest pain. He states he has chest pain a lot. This seems sharper than normal. It is located in his left upper chest. He circles an area about 2 inches around above and just left of his nipple line. It does sometimes hurt to take a deep breath but he is not actually short of breath. He did vomit once earlier today but is not nauseated. He has been having this for 5 or 6 years. It looks like he had a CTA back in 2017. I have seen him before for this. He has been seen several other times. Last time he was in we able to get a Holter monitor on him. I reviewed his outpatient results of Holter monitor that showed an average heartrate of 111 and a high heart rate of 160. No atrial fibrillation or marked dysrhythmias were noted. Patient states he needs to see a hurricane tracker. But he has not made any calls tosee them despite referrals. He states his phone only works on [place]. I have recommended he try to use a phone at work or borrow a friend's phone to make those calls as it is important that he gets in. Patient denies any travel surgery immobilization personal or family history of DVT or PE. [facility] Medical History Anxiety Depression H/O fracture of skull Learning difficulty due to cognitive limitations Septic shock Type 1 diabetes mellitus Type I diabetes mellitus, uncontrolled Home Medications ferrous sulfate 325 mg (65 mg iron) tablet (FeroSul) 325 mg PO DAILY supplement 03/05/21 [History Last Taken 03/04/21] insulin lispro 100 unit/mL subcutaneous pen 30 unit SQ TIDCM short acting insulin 03/05/21 [History Last Taken 03/04/21] sertraline 100 mg tablet 100 mg PO DAILY DEPRESSION 03/05/21 [History Last Taken 03/04/21] insulin glargine 100 unit/mL (3 mL) subcutaneous pen (Lantus Solostar U-100 Insulin) 50 unit subcut QPM diabetes 08/18/22 [History Last Taken Unknown] pantoprazole 40 mg tablet,delayed release (Protonix) 40 mg PO DAILY #60 tabs 08/20/22 [Rx Last Taken Unknown] potassium chloride 20 mEq tablet,extended release(part/cryst) (Klor-Con M) 20 meq PO BIDCM 30 days #60 tabs 08/20/22 [Rx Last Taken Unknown] gabapentin 300 mg capsule 300 mg PO QHS #14 caps 08/24/22 [Rx Last Taken Unknown] Allergy/AdvReac Type Severity Reaction Status Date / Time gluten AdvReac Nausea/Vom/ Verified 08/18/22 09:37 Diarrhea wheat AdvReac Nausea Verified 08/18/22 09:37 Family History Father Diabetes Surgical History H/O skin graft Social History household members: family Smoking Status: Current every day smoker tobacco type: cigarettes and smokelesstobacco Smokeless tobacco user: chewing tobacco second hand exposure: Yes alcohol intake: never substance use type: does not use ROS ROS ED Constitutional Constitutional ED: Denies chills or fever(s) Eyes Eyes: Denies change in vision ENT ENT ED: Denies ear pain, rhinorrhea or sore throat Cardiovascular Cardiovascular: Reports as per HPI Respiratory/Chest Respiratory/Chest: Denies cough Gastrointestinal Gastrointestinal: Reports vomiting; Denies abdominal pain or nausea Genitourinary Genitourinary ED: Denies hematuria Musculoskeletal Musculoskeletal: Denies arthralgias, back pain, myalgias or neck pain Integumentary Reports other Details: Chronic excoriations on hands. He did have prior bray years ago. Neurologic Neurologic: Denies paresthesias Hematologic/Lymphatic Hematologic/Lymphatic: Denies easy bleeding or easy bruising EXAM Physical Exam Narrative Exam Narrative: Patient is awake alert sitting calmly in bed. Nontoxic. Overall poor self- careand hygiene is noted. HEENT: Moist mucous membranes. No thrush. Eyes show no icterus Neck is supple. No JVD. No stridor. No abnormal voice or swallowing. Lungs are clear bilaterally. Saturations are normal. He has mild chest wall tenderness but not really reproducing his symptoms to any notable degree. I see no skin lesions or abnormality in the area of pain. Heart is tachycardic. He had a heart rate of 116 when I counted and calculated for 15 seconds. He does sound regular. Peripheral pulses are equal. Tones arenot muffled. I hear no murmur. Abdomen soft and nontender. Extremities show a lot of excoriations and are not clean but do not show signs of infection. He does have some chronic mild swelling around his ankles which he states is unchanged. But no asymmetry or cord. Neurologically he is awake alert appropriate in a reasonable informant for details and past medical history. Const Vital Signs: 11/17/22 00:10 Temperature 97.9 F Temperature Source Temporal Pulse Rate 120 H Respiratory Rate 18 Blood Pressure 120/62 Blood Pressure Mean 81 Pulse Ox 98 Oxygen Delivery Method Room Air MDM MDM MDM Narrative Medical decision making narrative: Independent interpretation of the patient's single view AP chest x-ray shows no acute process. No pneumothorax. Normal cardiac silhouette. Final reading is no radiographic evidence of acute pulmonary disease. Patient CBC shows nonspecific elevation of white count 11.7. But hemoglobin platelets are normal. Electrolytes show minimal decrease sodium 134. Glucose is high at 278 but that is normal to actually little bit good for him. Renal functions normal. Despite ongoing chest pain his troponin is unmeasurable. I also reviewed past visits and studies. Patient has had multiple chest x-rays. But his last CTA of the chest was about 6 years ago. Since he has recurrent symptoms, tachycardia, and has not had this study we will check this tonight. We will look for signs of PE. But we will also look for any signs of mass or other abnormality that might be causing his symptoms. This study is pending at this time. Patient will be turned over to the night physician pending results of this study. Lab Data Attestation: I reviewed the patient's lab results. Labs: Laboratory Results - last 24 hr 11/17/22 11/17/22 00:15 00:15 WBC 11.7 H RBC 5.10 Hgb 13.3 Hct 41.1 MCV 80.6 MCH 26.1 L MCHC 32.4 RDW Std Deviation 37.6 RDW Coeff of Alec 12.8 Plt Count 304 MPV 10.9 Immature Gran % (Auto) 0.300 Neut % (Auto) 49.8 Lymph % (Auto) 38.9 [place] % (Auto) 7.7 Eos % (Auto) 2.8 Baso % (Auto) 0.5 Absolute Neuts (auto) 5.8 Absolute Lymphs (auto) 4.55 H Nucleated RBC % 0 Sodium 134 L Potassium 3.8 Chloride 103 Carbon Dioxide 26.0 Anion Gap 5 BUN 13 Creatinine 0.76 Estim Creat Clear Calc 127.57 Est GFR (MDRD) Af Amer 159 Est GFR (MDRD) Non-Af 131 BUN/Creatinine Ratio 17.0 Glucose 278 H Calcium 9.1 Troponin I High Sens < 3 L Radiography Diagnostic Testing: Clinical Impression(s) from Imaging Studies Chest X-Ray 11/17/22 00:13 IMPRESSION: No radiographic evidence of acute cardiopulmonary disease. Electronically Signed: Svetlana Solo MD at 0:38 EDT , EKG Initial EKG: Comments: My independent interpretation of the patient's EKG is a sinus rhythm with tachycardic rate at 115. No ectopy noted. Slight variation in QRS size through respiratory cycle. No acute ST elevation or depression. AR interval, QRS duration and QTc are normal. Discharge Plan Triage Chief Complaint: Chest Pain ED Provider: Jimmie Palomino Dx/Rx/DC Orders Clinical Impression: Left-sided chest pain, Diabetes mellitus type 1, Tachycardia Instructions: ED Chest Pain, Uncertain Cause Prescriptions: No Action ferrous sulfate [FeroSul] 325 mg (65 mg iron) tablet 325 mg PO DAILY sertraline 100 mg tablet 100 mg PO DAILY Label Comments: Take 1 tablet by mouth once daily. insulin lispro 100 UNIT/ML insulin pen 30 unit SQ TIDCM Rx Instructions: +SLIDING SCALE insulin glargine [Lantus Solostar U-100 Insulin] 100 unit/mL (3 mL) insulin pen 50 unit subcut QPM potassium chloride [Klor-Con M20] 20 mEq Tablet,Er Particles/Crystals 20 meq PO BIDCM 30 Days Qty: 60 0RF pantoprazole [Protonix] 40 mg tablet,delayed release (DR/EC) 40 mg PO DAILY Qty: 60 0RF gabapentin 300 mg capsule 300 mg PO QHS Qty: 14 0RF Primary Care Provider: Deangelo Noel Referrals: Carlos Rincon MD [Med Staff - Active Staff] - As soon as possible Deangelo oNel MD [Primary Care Provider] - As soon as possible What to do if you have Problems For any increased pain, shortness of breath, bleeding, nausea or vomiting, chestpain, or any unexpected problems, contact your Primary Care Provider. Call [facility] ([phone]) or report to the closest Emergency Room. Call 911 if necessary. 11/17/22 012 <Electronically signed by Jimmie Palomino MD> Cosigner Signature (if applicable): CC: Deangelo Noel MD ~ Signed ADDENDUM by Dr. Sandy Mcclain MD on 11/17/22 at 0201 Patient signed out to me pending CTA. CTA of the chest returns with no evidenceof pulmonary embolism or acute abnormality. Patient be discharged per Dr. Leiva's plan. He has been given information for cardiology follow-up. 11/17/22 020<Electronically signed by Sandy Mcclain MD> Cosigner Signature (if applicable): cc: Deangelo Noel MD ~* Signed [facility] Work Phone: Discharge summary Author Keisha Handy [facility] Note Date/Time October 19, 2024 5:1 6am [facility] Medical Records Department [address] [place] [address] Emergency Department Summary 10/19/24 MR#: [id number] Acct: [id number] Name: UNA COSBY Rep #:[id number] : 1995 29 From: Keisha Maldonado PCP: Care Physician,No Primary Status :REG ER Location: ED HPI History of Present Illness Chief Complaint: Chest Pain Informant: patient Narrative Narrative: Patient is 29-year-old male with history of type 1 diabetes mellitus, palpitations and anxiety presenting with chest pain. Patient states that he is getting from his of 2 years. He found that she cheated on him. They have been arguing all day and he has been trying to block her number. She has continue to try to contact him. He states he lost it and started yelling/fighting with her. He then developed left sided chest pain. He describes it as it feels like there is a bullet in his chest or his chest to gethit by a sledgehammer. Denies any radiation of the pain. Does relic his heart is racing. States he has had issues with palpitations and elevated heart rate but they never been there for got a cause. This been going on for years. He does not take any cardiac medications. He denies any swelling of his legs. Denies history of DVT PE. States he does have some pain with deep breathing since this started. Denies any other complaints at this time. No fever or chills reported. No cough reported. States his blood sugar has been in the 200s to 300s but attributes that to stress. States has been taking his insulin. No other complaints or concerns reported at this time. [facility] Medical History Learning difficulty due to cognitive limitations H/O fracture of skull Anxiety Depression Septic shock Type 1 diabetes mellitus Type I diabetes mellitus, uncontrolled Home Medications ?Medication ?Instructions ?Recorded ?Last Taken ?Type insulin lispro 100 unit/mL 25 unit SQ TIDCM short acti ng 03/05/21 03/04/21 History subcutaneous pen insulin insulin glargine 100 unit/mL (3 50 unit subcut QPM linda betes 08/18/22 Unknown History mL) subcutaneous pen (Lantus Solostar U-100 Insulin) insulin glargine 100 unit/mL 35 unit subcut QHS Unknown History subcutaneous solution (Lantus U-100 Insulin) insulin lispro 100 unit/mL 25 unit subcut TIDCM Unknown History subcutaneous solution insulin syringe-needle U-100 0.5 03/13/25 Unknown His tory mL 31 gauge x 12/22" (TRUEplus Insulin) Allergy/AdvReac Type Severity Reaction Status Date / Time No Known Allergies Allergy Verified 10/19/24 00:16 Family History Father Diabetes Surgical History H/O skin graft Social History household members: family Smoking Status: Current some day smoker tobacco type: cigarettes, e-cigarettes and smokeless tobacco Smokeless tobacco user: chewing tobacco second hand exposure: Yes alcohol intake: never substance use type: does not use ROS ROS ED Constitutional Constitutional ED: Denies chills or fever(s) ENT ENT ED: Denies sore throat Cardiovascular Cardiovascular: Reports as per HPI, chest pain and racing heartbeat Respiratory/Chest Respiratory/Chest: Reports dyspnea; Denies cough Gastrointestinal Gastrointestinal: Denies abdominal pain, diarrhea, melena, nausea or vomiting Musculoskeletal Musculoskeletal: Denies arthralgias or myalgias Integumentary Denies rash Neurologic Neurologic: Denies weakness Psychiatric Psychiatric: Reports anxiety EXAM Physical Exam Const Vital Signs: 10/19/24 00:09 10/19/24 00:50 10/19/24 01:00 Temperature 97.6 F L Temperature Source Oral Pulse Rate 123 H 117 H Respiratory Rate 18 17 Blood Pressure 161/115 H 158/110 H Blood Pressure Mean 130 123 Pulse Ox 98 97 Oxygen Delivery Method Room Air Room Air Room Air 10/19/24 01:15 10/19/24 02:00 10/19/24 02:13 Temperature Temperature Source Pulse Rate 116 H 110 H 112 H Respiratory Rate 16 16 17 Blood Pressure 144/107 H 132/85 H 147/106 H Blood Pressure Mean 118 100 119 Pulse Ox 98 98 99 Oxygen Delivery Method Room Air Room Air Room Air 10/19/24 03:00 10/19/24 04:00 10/19/24 05:00 Temperature Temperature Source Pulse Rate 108 H 105 H 112 H Respiratory Rate 18 16 21 H Blood Pressure 119/84 H 133/90 H 133/89 H Blood Pressure Mean 95 104 103 Pulse Ox 99 97 94 Oxygen Delivery Method Room Air Room Air Room Air Positive well nourished and well developed General Appearance ED: well developed and NAD HEENT Reports moist mucous membranes Eyes PERRL Neck supple and no JVD Chest Wall inspection of chest normal and palpation of chest normal Resp normal respiratory effort and clear to auscultation bilaterally Cardio regular rhythm and no murmurs Rate: tachycardic GI normal to inspection, nondistended, normoactive bowel sounds, soft to palpation and non-tender Neuro oriented x3 Sensorium / Orientation: alert Psych mental status grossly normal Mood & Affect: anxious Skin no rashes or lesions noted and no wounds Heart Score History: Slightly/Non-Suspicious ECG: Normal Age: </= 45 years Risk Factors: 1 or 2 Risk Factors Troponin: </= Normal Limit Score: 1 MDM MDM MDM Narrative Medical decision making narrative: Patient valuate for chest pain that happened after arguing with his significant other. Upon arrival patient hypertensive and tachycardic. Does have a history of type 1 diabetes mellitus. States his blood sugar has been running higher butattributes this to stress. Differential includes ACS, pneumonia, pneumothorax, pulmonary emboli, DKA, hyperglycemia, dehydration. EKG shows sinus tachycardia with no acute ischemic changes. High-sensitivity troponin normal at 8 and then 9. He has a mild leukocytosis with a white blood cell count of 13.4 but no left shift. This appears chronic for the patient. Hemoglobin normal. CMP remarkable for mildly low bicarb of 20.5, mildly elevated anion gap of 17 and glucose of 458. He also pseudohyponatremia with a sodium of 129. Potassium is normal. Patient was initially ordered 1 L of IV fluid but a second liter is also ordered. Acetone and VBG added on. These are both largely normal and not consistent with DKA. Repeat blood glucose is now 312. Patient's tachycardia has improved. He looks better. Is given additional6 units of insulin. From a cardiac standpoint I do not suspect any acute process and can be discharged home. At this time I think patient had some dehydration and hyperglycemia but was not in DKA. Is counseled the importance of him drinking fluids and adhering to his insulin regiment. He verbalized agreement nursings plan. Will be discharged home. Given return precautions. Lab Data Attestation: I reviewed the patient's lab results. Labs: Laboratory Results - last 24 hr 03/10/19/24 10/19/24 00:24 02:23 03:21 WBC 13.4 H RBC 5.78 Hgb 13.4 Hct 43.5 MCV 75.3 L MCH 23.2 L MCHC 30.8 L RDW Std Deviation 43.9 RDW Coeff of Alec 16.5 H Plt Count 346 MPV 10.3 Immature Gran % (Auto) 0.400 Neut % (Auto) 63.5 Lymph % (Auto) 27.7 [place] % (Auto) 6.2 Eos % (Auto) 1.5 Baso % (Auto) 0.7 Absolute Neuts (auto) 8.5 H Absolute Lymphs (auto) 3.70 Nucleated RBC % 0 D-Dimer Quant (PE/DVT) 0.28 Sodium 129 L Potassium 4.1 Chloride 92 L Carbon Dioxide 20.5 L Anion Gap 17 H BUN 17 Creatinine 0.63 L Estim Creat Clear Calc 163.42 Est GFR (MDRD) Non-Af 134 BUN/Creatinine Ratio 26.8 H Glucose 458 H* Calcium 8.9 Troponin T High Sens 8 Troponin T Hi Sens 2 Hr 9 b-Hydroxybutyric mmol/L 0.6 Urine Color Yellow Urine Clarity Clear Urine pH 6.0 Ur Specific Lily 1.010 Urine Protein 100 H Urine Glucose (UA) 1000 H Urine Ketones 15 H Urine Occult Blood 25 H Urine Nitrite Negative Urine Bilirubin Negative Urine Urobilinogen Normal Ur Leukocyte Esterase Negative Urine RBC 0-5 SEEN Urine WBC 0 SEEN Ur Squamous Epith Cells 0-5 SEEN Urine Bacteria 1+ Urine Mucus 0 SEEN POC Glucose 312 H ABG Data ABG results: ABG 10/19/24 02:47 Specimen Type JAIDEN Sample Site Not entered VBG pH 7.36 VBG pO2 32 VBG HCO3 23 VBG Total CO2 25 VBG O2 Sat (Calc) 59 VBG Base Excess -2 L POC Mix VBG pCO2 Pt Tmp 41.4 O2 Delivery Device Room Air Radiography Chest X-Ray - ED: 2 View, Read by ED Physician, Read by Radiologist and No AcuteDisease Diagnostic Testing: Clinical Impression(s) from Imaging Studies Chest X-Ray 10/19/24 00:40 IMPRESSION: No evidence of acute disease. Reading Location: [facility] Rhythm Strip Rhythm Strip: Sinus Tach Rate: 118 Ectopy: None EKG Initial EKG: Attestation: I personally reviewed and interpreted this EKG as follows: Interpretation: Sinus Tachycardia Comments: Sinus tachycardia rate of 118 bpm Normal axis Normal intervals Normal ST segments Discharge Plan Triage Chief Complaint: Chest Pain ED Provider: Keisha Handy Dx/Rx/DC Orders Clinical Impression: Diabetes mellitus, Hyperglycemia, Tachycardia, Chest pain Instructions: ED Chest Pain, Uncertain Cause, ED Diabetic Hyperglycemia Prescriptions: No Action insulin lispro 100 UNIT/ML insulin pen 25 unit SQ TIDCM Rx Instructions: +SLIDING SCALE insulin glargine [Lantus Solostar U-100 Insulin] 100 unit/mL (3 mL) insulin pen 50 unit subcut QPM insulin glargine [Lantus U-100 Insulin] 100 unit/mL solution 35 unit subcut QHS insulin lispro 100 unit/mL solution 25 unit subcut TIDCM Patient Comments: inject 25 three times a day (DME) insulin syringe-needle U-100 [TRUEplus Insulin] 0.5 mL 31 gauge x 5/16" syringe 1 syringe MISCELLANEOUS 4X/DAY Primary Care Provider: Care Physician,No Primary Referrals: Deangelo Noel MD [Non-Staff] - Activity Restrictions/Additional Instructions: Your initial lab work was concerning for elevated blood sugar. You were not in DKA but likely were heading into it. You are given IV fluids and insulin in theemergency room. Please make sure you are drinking plenty of water and managing your blood sugar at home. If you feel you have worsening symptoms please returnto emergency room. Your cardiac workup was largely normal with no findings administrative personal assistant with heart attack or other acute cardiac/heart process Print Language: Hong Konger Disposition Disposition: Home, Self Care What to do if you have Problems For any increased pain, shortness of breath, bleeding, nausea or vomiting, chestpain, or any unexpected problems, contact your Primary Care Provider. Call [facility] ([phone]) or report to the closest Emergency Room. Call 911 if necessary. 10/19/24 0516 <Electronically signed by Keisha Handy DO> Cosigner Signature (if applicable): CC: No Primary Care Physician ~ Signed [facility] Work Phone: Evaluation note* Diagnosis Uncontrolled type 1 diabetes mellitus with hypoglycemia without coma (HCC)- [facility] [place] [facility] Diagnosis Uncontrolled type 1 diabetes mellitus with hypoglycemia without coma (HCC) [facility] [place] noteNo assessment information availableWMercy [facility] Work Phone: Evaluation note* Diagnosis Onset Date Resolution Status Acute dehydration acute Acute hyperkalemia acute FRANKLIN (acute kidney injury) ac vianca DKA, type 1 acute Hyperphosphatemia acute Noncompliance with medication regimen acute Pseudohyponatremia acute [facility] Work Phone: Evaluation note* Diagnosis Uncontrolled type 1 diabetes mellitus with hypoglycemia without coma (HCC) [facility] [place] [facility]* Diagnosis Uncontrolled type 1 diabetes mellitus with hypoglycemia without coma (HCC) Type I (juvenile type) diabetes mellitus without mention of complication, not stated as uncontrolled (HCC) Type I (juvenile type) diabetes mellitus without mention of complication, not stated as uncontrolled LATRICE (generalized anxiety disorder) Generalized anxiety disorder Compression fracture of spine (HCC) Closed fracture of unspecified part of vertebral column without mention of spinal cord injury [facility] [place] [facility]* Diagnosis Onset Date Resolution Status Noncompliance with medication regimen acute Acute dehydration resolved Acute hyperkalemia resolved FRANKLIN (acute kidney injury) re solved DKA, type 1 resolved Hyperphosphatemia resolved Pseudohyponatremia resolved [facility] Work Phone: Evaluation note* Diagnosis Chest pain, unspecified type- Primary High blood sugar Other abnormal glucose [facility] [place] [facility]* Diagnosis APPOINTMENT CANCELLED- Primary Uncontrolled type 1 diabetes mellitus with hypoglycemia without coma (HCC) Type I (juvenile type) diabetes mellitus without mention of complication, not stated as uncontrolled (HCC) Type I (juvenile type) diabetes mellitus without mention of complication, not stated as uncontrolled [facility] [place] [facility]* Diagnosis Onset Date Resolution Status FRANKLIN (acute kidney injury) ac vianca DKA (diabetic ketoacidoses) acute Hematemesis of unknown cause acute Lactic acidosis acute Noncompliance with medication regimen acute [facility] Work Phone: Evaluation note* Diagnosis Uncontrolled type 1 diabetes mellitus with hypoglycemia without coma (HCC) [facility] [place] [facility]* Diagnosis Onset Date Resolution Status Noncompliance with medication regimen acute FRANKLIN (acute kidney injury) re solved DKA (diabetic ketoacidoses) resolved Hematemesis of unknown cause resolved Lactic acidosis resolved [facility] Work Phone: Hospital Discharge instructions Additional Instructions Thank you for trusting us with your care today! Please take Tylenol (2 pills, 650 mg), ibuprofen (2 pills, 400 mg) every 6 hours as needed for pain and fever control. Please return to the emergency department if your symptoms change or worsen. Please take Zofran as needed for nausea and vomiting. Please return if he cannot tolerate medicine or food by mouth. Please follow with your primary care physician for further outpatient evaluation and management.[facility] Work Phone: Hospital Discharge instructions Additional Instructions Your initial lab work was concerning for elevated blood sugar. You were not in DKA but likely were heading into it. You are given IV fluids and insulin in the emergency room. Please make sure you are drinking plenty of water and managing your blood sugar at home. If you feel you have worsening symptoms please return to emergency room. Your cardiac workup was largely normal with no findings administrative personal assistant with heart attack or other acute cardiac/heart processWMercy [facility] Work Phone: Hospital Discharge instructions Additional Instructions Follow-up with your PCP and return for any worsening symptoms.[facility] Work Phone: Hospital Discharge instructions Additional Instructions I am not sure what the cause of your palpitations and is. Your screening labs look normal other than very high glucose over 480. It is important you take your insulin as scheduled and make good food choices for a diabetic diet. Follow-up your primary care doctor.[facility] Work Phone: Reason for referral (narrative)No reason for referral information availableWMercy Health [facility] Work Phone: Summary Purpose Family History No Family History Records Found Relationship Condition Age at Onset Recorded Date/T bertin father Diabetes mellitus Unknown Advance Directives No Advanced Directives Records FoundDocuments on File Type Date Recorded Patient Systems Project Manager Expl anation Advance Directive(s) 03/23/2018 2:01 PM Advance Directive Response Recorded Date/ Time Advance Directives No October 08 6:31pm Living Will No January 31, 2022 10:37am Power of Assistant Dean No January 31 10:37am Advance Directive Response Recorded Date/ Time Advance Directives No October 08 6:31pm Living Will No 2022 10:52am Power of Assistant Dean No March 02 10:52am Advance Directive Response Recorded Date/ Time Advance Directives No October 08 6:31pm Living Will No 2022 12:30pm Power of Assistant Dean No March 02 12:30pm Advance Directive Response Recorded Date/ Time Advance Directives No October 08 5:31pm Living Will No June 30 10:32pm Power of Assistant Dean No June 30, 2022 10:32pm Advance Directive Response Recorded Date/ Time Advance Directives No October 08 5:31pm Living Will No August 18 11:46am Power of Assistant Dean No August 18, 2022 11:46am Advance Directive Response Recorded Date/ Time Advance Directives No October 08 5:31pm Living Will No August 24 9:15pm Power of Assistant Dean No August 24, 2022 9:15pm Advance Directive Response Recorded Date/ Time Advance Directives No October 08 5:31pm Living Will No October 13, 2022 3:59am Power of Assistant Dean No October 13 3:59am Advance Directive Response Recorded Date/ Time Advance Directives No October 08 6:31pm Living Will No October 13, 2022 4:59am Power of Assistant Dean No October 13 4:59am Advance Directive Response Recorded Date/ Time Advance Directives No October 08 6:31pm Living Will No November 17, 2022 2:01am Power of Assistant Dean No November 17 2:01am Advance Directive Response Recorded Date/ Time Advance Directives No October 08 6:31pm Living Will No December 03, 2022 8:34pm Power of Assistant Dean No December 03 8:34pm Advance Directive Response Recorded Date/ Time Advance Directives No October 08 6:31pm Living Will No December 09, 2022 6: 27pm Power of Assistant Dean No May 3rd, 2023 6:27pm Advance Directive Response Recorded Date/ Time Advance Directives No October 08 16 6:31pm Living Will No January 03, 2023 1 0:21pm Power of Assistant Dean No January 03, 2023 10:21pm Advance Directive Response Recorded Date/ Time Living Will No October 19, 2024 12:14am Power of Assistant Dean No October 19 12:14am Advance Directives No October 08 6:31pm Advance Directive Response Recorded Date/ Time Living Will No November 11, 2024 5:45pm Do you have a Healthcare Power of Assistant Dean? No November 11, 2024 5:45pm Living Will No October 19, 2024 12:14am Do you have a Healthcare Power of Assistant Dean? No October 19, 2024 12:14am Advance Directives No October 08 6:31pm Advance Directive Response Recorded Date/ Time Living Will No November 11, 2024 5:45pm Do you have a Healthcare Power of Assistant Dean? No November 11, 2024 5:45pm Do you have a Healthcare Power of Assistant Dean? No December 12, 2024 1:02pm Living Will No October 19, 2024 12:14am Do you have a Healthcare Power of Assistant Dean? No October 19, 2024 12:14am Do you have a Healthcare Power of Assistant Dean? No December 13, 2024 9:49pm Advance Directives No October 08 6:31pm Advance Directive Response Recorded Date/ Time Living Will No November 11, 2024 5:45pm Do you have a Healthcare Power of Assistant Dean? No November 11, 2024 5:45pm Do you have a Healthcare Power of Assistant Dean? No December 12, 2024 1:02pm Do you have a Healthcare Power of Assistant Dean? No January 26, 2025 12:12pm Living Will No October 19, 2024 12:14am Do you have a Healthcare Power of Assistant Dean? No October 19, 2024 12:14am Do you have a Healthcare Power of Assistant Dean? No December 13, 2024 9:49pm Advance Directives No October 08 6:31pm Chief Complaint and Reason for Visit Chief Complaint leg inury BACK Chief Complaint leg inury BACK DKA Reason for Visit Acute dehydration Acute hyperkalemia FRANKLIN (acute kidney injury) DKA, type 1 Hyperphosphatemia Noncompliance with medication regimen Pseudohyponatremia Chief Complaint leg inury BACK DKA DKA DKA Reason for Visit Acute dehydration Acute hyperkalemia FRANKLIN (acute kidney injury) DKA, type 1 Hyperphosphatemia Noncompliance with medication regimen Pseudohyponatremia Chief Complaint DKA DKA cp Reason for Visit Noncompliance with m edication regimen Acute dehydration Acute hyperkalemia FRANKLIN (acute kidney injury) DKA, type 1 Hyperphosphatemia Pseudohyponatremia Chief Complaint cp CHEST OTHER, COUGH DKA DKA DKA DKA Reason for Visit FRANKLIN (acute kidney in jury) DKA (diabetic ketoacidoses) Hematemesis of unknown cause Lactic acidosis Noncompliance with medication regimen Chief Complaint cp CHEST OTHER, COUGH DKA DKA DKA DKA FOOT PAIN Reason for Visit FRANKLIN (acute kidney in jury) DKA (diabetic ketoacidoses) Hematemesis of unknown cause Lactic acidosis Noncompliance with medication regimen Chief Complaint cp CHEST OTHER, COUGH DKA DKA DKA DKA FOOT PAIN CP 48 HOLTER Reason for Visit Noncompliance with m edication regimen FRANKLIN (acute kidney injury) DKA (diabetic ketoacidoses) Hematemesis of unknown cause Lactic acidosis Chief Complaint DKA DKA DKA DKA FOOT PAIN CP 48 HOLTER 48 HOLTER MONITOR chest pain Reason for Visit Noncompliance with m edication regimen FRANKLIN (acute kidney injury) DKA (diabetic ketoacidoses) Hematemesis of unknown cause Lactic acidosis Chief Complaint DKA DKA DKA DKA FOOT PAIN CP 48 HOLTER 48 HOLTER MONITOR chest pain CHEST PAIN Reason for Visit Noncompliance with m edication regimen FRANKLIN (acute kidney injury) DKA (diabetic ketoacidoses) Hematemesis of unknown cause Lactic acidosis Chief Complaint DKA DKA DKA DKA FOOT PAIN CP 48 HOLTER 48 HOLTER MONITOR chest pain CHEST PAIN CHEST PAIN Reason for Visit Noncompliance with m edication regimen FRANKLIN (acute kidney injury) DKA (diabetic ketoacidoses) Hematemesis of unknown cause Lactic acidosis Chief Complaint CP 48 HOLTER 48 HOLTER MONITOR chest pain CHEST PAIN CHEST PAIN CP Chief Complaint Admit Date CHEST PAIN October 19, 2024 12: 09am Chief Complaint Admit Date CHEST PAIN October 19, 2024 12: 09am N/V Myah 5th, 2025 5:45 pm Chief Complaint Admit Date CHEST PAIN October 19, 2024 12: 09am N/V November 11, 2024 5:45 pm shoulder pain December 12, 2024 12:35p m TAKEN PAIN MEDS,N/V, DIZZY December 13, 2024 9:10pm Chief Complaint Admit Date CHEST PAIN October 19, 2024 12: 09am N/V November 11, 2024 5:45 pm shoulder pain December 12, 2024 12:35p m TAKEN PAIN MEDS,N/V, DIZZY December 13, 2024 9:10pm PALPITATIONS January 26, 2025 11:2 2am Reason for Referral Specialty Diagnoses / Procedures Referred By Contac t Referred To Contact Diagnoses Uncontrolled type 1 diabetes mellitus with hypoglycemia without coma (HCC) Radha Hameed, GENIA.PLASTER MACHINE TENDER [address] [place] [address] Referral ID Status Reason Start Date Expiration Date Visits Re quested Visits Authorized [id number] Closed 1 1 Additional Source Comments (unrecognized sect ion and content) No Status Records FoundNo Status Records FoundNo Status Records FoundNo Status Records FoundNo Status Records Found INFORMATION SOURCE (unrecogn ized section and content) DATE CREATED AUTHOR 01/25/2018 [facility] DATE CREATED AUTHOR AUTHOR'S ORGANIZ ATION 05/20/2018 [facility] DATE CREATED AUTHOR AUTHOR'S ORGANIZ ATION 05/27/2018 [facility] DATE CREATED AUTHOR AUTHOR'S ORGANIZ ATION 10/12/2024 [facility] DATE CREATED AUTHOR AUTHOR'S ORGANIZ ATION 01/31/2025 [facility] Source Comments (unrecognize d section and content) In the event this informatio n is protected by the Federal Confidentiality of Alcohol and Drug Abuse Patient Records regulations: The Federal rules restrict any use of the information to criminally investigate or prosecute any alcohol or drug abuse patient.[facility] the event this information is protected by the Federal Confidentiality of Alcohol and Drug Abuse Patient Records regulations: The Federal rules restrict any use of the information to criminally investigate or prosecute any alcohol or drug abuse patient.[facility] the event this information is protected by the Federal Confidentiality of Alcohol and Drug Abuse Patient Records regulations: The Federal rules restrict any use of the information to criminally investigate or prosecute any alcohol or drug abuse patient.[facility] the event this information is protected by the Federal Confidentiality of Alcohol and Drug Abuse Patient Records regulations: The Federal rules restrict any use of the information to criminally investigate or prosecute any alcohol or drug abuse patient.[facility] the event this information is protected by the Federal Confidentiality of Alcohol and Drug Abuse Patient Records regulations: The Federal rules restrict any use of the information to criminally investigate or prosecute any alcohol or drug abuse patient.[facility] Hospital[facility] the event this information is protected by the Federal Confidentiality of Alcohol and Drug Abuse Patient Records regulations: The Federal rules restrict any use of the information to criminally investigate or prosecute any alcohol or drug abuse patient.[facility] the event this information is protected by the Federal Confidentiality of Alcohol and Drug Abuse Patient Records regulations: The Federal rules restrict any use of the information to criminally investigate or prosecute any alcohol or drug abuse patient.[facility] HospitalIn the event this information is protected by the Federal Confidentiality of Alcohol and Drug Abuse Patient Records regulations: The Federal rules restrict any use of the information to criminally investigate or prosecute any alcohol or drug abuse patient.[facility] HospitalIn the event this information is protected by the Federal Confidentiality of Alcohol and Drug Abuse Patient Records regulations: The Federal rules restrict any use of the information to criminally investigate or prosecute any alcohol or drug abuse patient.[facility] HospitalIn the event this information is protected by the Federal Confidentiality of Alcohol and Drug Abuse Patient Records regulations: The Federal rules restrict any use of the information to criminally investigate or prosecute any alcohol or drug abuse patient.[facility] HospitalIn the event this information is protected by the Federal Confidentiality of Alcohol and Drug Abuse Patient Records regulations: The Federal rules restrict any use of the information to criminally investigate or prosecute any alcohol or drug abuse patient.[facility] HospitalIn the event this information is protected by the Federal Confidentiality of Alcohol and Drug Abuse Patient Records regulations: The Federal rules restrict any use of the information to criminally investigate or prosecute any alcohol or drug abuse patient.[facility] HospitalIn the event this information is protected by the Federal Confidentiality of Alcohol and Drug Abuse Patient Records regulations: The Federal rules restrict any use of the information to criminally investigate or prosecute any alcohol or drug abuse patient.[facility] HospitalIn the event this information is protected by the Federal Confidentiality of Alcohol and Drug Abuse Patient Records regulations: The Federal rules restrict any use of the information to criminally investigate or prosecute any alcohol or drug abuse patient.[facility] Reason for Visit (unrecogniz ed section and content) Reason Onset Date Comments PHMA/Care Gap Outreach 11/17/2021 Reason Comments Insurance Authorization Reason Onset Date Comments Transition Of Care 03/04/2022 Reason Comments Medication Problem Reason Onset Date Comments Refill Request 06/07/2022 Reason Comments Urgent value Reason Comments Results Reason Comments Chest Pain Appointment Cancelled Reason Comments Insurance Authorization Maria Teresa Ballesteros Reason Comments Refill Request Reason Comments Appointment Reason Comments Letter Care Teams (unrecognized sec tion and content) Cob Sawyer Relationship Specialty Start Date End Date Deangelo Noel MD [address] [place], [place] [id number] PCP - General Family Practice 09/30/18 Fidelina Rogel Formerly [facility] [address] [place], [place] [address] Pharmacist Pharmacy 07/14/18 Darren Zarate DO [address] [place] [phone] Lawn And Garden Technician Emergency Medicine 06/04/20 Cob Sawyer Relationship Specialty Start Date End Date Deangelo Noel MD [address] [place] [address] PCP - General Family Practice 09/30/18 PutnamFidelina, Formerly [facility] [address] [place] [address] Pharmacist Pharmacy 07/14/18 Darren Zarate, DO [address] [place] [address] Lawn And Garden Technician Emergency Medicine 06/04/20 Cob Sawyer Relationship Specialty Start Date End Date Deangelo Noel MD [address] [place] [address] PCP - General Family Practice 09/30/18 PutnamFidelina, Formerly [facility] [address] [place] [address] Pharmacist Pharmacy 07/14/18 Darren Zarate, DO [address] [place] [address] Lawn And Garden Technician Emergency Medicine 06/04/20 Cob Sawyer Relationship Specialty Start Date End Date Deangelo Noel MD [address] [place] [address] PCP - General Family Medicine 09/30/18 PutnamFidelina, Formerly [facility] [address] [place] [address] Pharmacist Pharmacy 07/14/18 Darren Zarate, DO [address] [place] [address] Lawn And Garden Technician Emergency Medicine 06/04/20 Cob Sawyer Relationship Specialty Start Date End Date Deangelo Noel MD [address] [place] [address] PCP - General Family Medicine 09/30/18 PutnamMarcellaFidelina, Formerly [facility] [address] [place] [address] Pharmacist Pharmacy 07/14/18 Darren Zarate DO [address] [place] [address] Lawn And Garden Technician Emergency Medicine 06/04/20 Cob Sawyer Relationship Specialty Start Date End Date Deangelo Noel MD [address] [place] [address] PCP - General Family Medicine 09/30/18 [facility] [address] [place] [address] Pharmacist Pharmacy 07/14/18 Darren Zarate, DO [address] [place] [address] Lawn And Garden Technician Emergency Medicine 06/04/20 Cob Sawyer Relationship Specialty Start Date End Date Deangelo Noel MD [address] [place] [address] PCP - General Family Medicine 09/30/18 [facility] [address] [place] [address] Pharmacist Pharmacy 07/14/18 Darren Zarate DO [address] [place] [address] Lawn And Garden Technician Emergency Medicine 06/04/20 Cob Sawyer Relationship Specialty Start Date End Date Deangelo Noel MD [address] [place] [address] PCP - General Family Medicine 09/30/18 [facility] [address] [place] [address] Pharmacist Pharmacy 07/14/18 Darren Zarate DO [address] [place] [phone] Lawn And Garden Technician Emergency Medicine 06/04/20 Cob Sawyer Relationship Specialty Start Date End Date Deangelo Noel MD [address] [place] [address] PCP - General Family Medicine 09/30/18 [facility] [address] [place] [address] Pharmacist Pharmacy 07/14/18 Darren Zarate DO [address] [place] [address] Lawn And Garden Technician Emergency Medicine 06/04/20 Team Status: Active Member Role Status Dates Deangelo Noel MD Family Provider Active Deangelo Noel MD Primary Care Provider Active Team Status: Active Member Role Status Dates Deangelo Noel MD Primary Care Provider Active Dr. Keisha Handy DO Emergency Provider Active Dr. Isidro Cruz MD Admit Provider, At tending Provider, Other Provider Active Team Status: Inactive Member Role Status Dates Deangelo Noel MD Primary Care Provider Active Dr. Darren Zarate DO Attending Provider, Emergency P bertha Active Team Status: Inactive Member Role Status Dates Deangelo Noel MD Primary Care Provider Active Dr. Sandy Mcclain MD Attending Provider, Emergency Provider Active Team Status: Inactive Member Role Status Dates Deangelo Noel MD Primary Care Provider Active Dr. Keisha Handy DO Emergency Provider Active Dr. Isidro Cruz MD Admit Provider, Attending Provid er Active Team Status: Inactive Member Role Status Dates Deangelo Noel MD Primary Care Provider Active Dr. Gatito Reed , Emergency Provider Active Cob Sawyer Relationship Specialty Start Date End Date Phillip Howe APRN.PLASTER MACHINE TENDER [address] [place] [address] PCP - General Family Medicine 09/22/22 09/22/22 [facility] [address] [place] [address] Pharmacist Pharmacy 07/14/18 Darren Zarate, DO [address] [place] [address] Lawn And Garden Technician Emergency Medicine 06/04/20 Cob Sawyer Relationship Specialty Start Date End Date Fidelina Rogel, Formerly [facility] [address] [place] [address] Pharmacist Pharmacy 07/14/18 Darren Zarate DO [address] [place] [address] Lawn And Garden Technician Emergency Medicine 06/04/20 Cob Sawyer Relationship Specialty Start Date End Date Fidelina Rogel, Formerly [facility] [address] [place] [address] Pharmacist Pharmacy 07/14/18 Darren Zarate, DO [address] [place] [phone] Lawn And Garden Technician Emergency Medicine 06/04/20 Team Status: Inactive Member Role Status Dates Deangelo Noel MD Primary Care Provider Active Dr. Gatito Reed DO Attending Provider, Emergency Provide r Active Team Status: Inactive Member Role Status Dates Deangelo Noel MD Primary Care Provider Active Dr. Jimmie Palomino MD Emergency Provider Active Team Status: Active Member Role Status Dates Deangelo Noel MD Primary Care Provider Active Dr. Robbi Salazar MD Attending Provider Active Team Status: Active Member Role Status Dates Deangelo ORELLANA MD Family Provider Active Deangelo ORELLANA MD Primary Care Provider Active Team Status: Active Member Role Status Dates Deangelo ORELLANA MD Primary Care Provider Active Dr. Keisha Handy DO Emergency Provider Active Dr. Isidro Cruz MD Admit Provider, At tending Provider, Other Provider Active Team Status: Inactive Member Role Status Dates Deangelo ORELLANA MD Primary Care Provider Active Dr. Darren Zarate DO Attending Provider, Emergency P bertha Active Team Status: Inactive Member Role Status Dates Deangelo ORELLANA MD Primary Care Provider Active Dr. Sandy Mcclain MD Attending Provider, Emergency Provider Active Team Status: Inactive Member Role Status Dates Deangelo ORELLANA MD Primary Care Provider Active Dr. Keisha Handy DO Emergency Provider Active Dr. Isidro Cruz MD Admit Provider, Attending Provid er Active Team Status: Inactive Member Role Status Dates Deangelo ORELLANA MD Primary Care Provider Active Dr. Gatito Reed DO Attending Provider, Emergency Provide r Active Team Status: Inactive Member Role Status Dates Deangelo ORELLANA MD Primary Care Provider Active Dr. Jimmie Palomino MD Attending Provider, Emergency Provider Active Team Status: Inactive Member Role Status Deangelo ORELLANA MD Primary Care Provider Active Dr. Robbi Salazar MD Attending Provider Active Team Status: Active Member Role Status Dates Deangelo ORELLANA MD Primary Care Provider Active Dr. Robbi Salazar MD Attending Provider, Referring Pro vider Active Team Status: Inactive Member Role Status Deangelo ORELLANA MD Primary Care Provider Active Dr. Jimmie Palomino MD Emergency Provider Active Team Status: Active Member Role Status Dates Deangelo ORELLANA MD Family Provider Active Dr. Deangelo Noel MD Primary Care Provider Active Team Status: Inactive Member Role Status Dates Dr. Deangelo Noel MD Primary Care Provider Active Dr. Edgar Calvillo DO Emergency Provider Active Team Status: Inactive Member Role Status Dates Dr. Deangelo Noel MD Primary Care Provider Active Dr. Edgar Calvillo DO Attending Provider, Emergency Provider Active Team Status: Inactive Member Role Status Dates Dr. Deangelo Noel MD Primary Care Provider Active Dr. Davidson Lynn DO Emergency Provider Active Team Status: Inactive Member Role Status Dates Dr. Deangelo Noel MD Primary Care Provider Active Dr. Davidson Lynn DO Attending Provider, Emergency P rovider Active Team Status: Inactive Member Role Status Dates Dr. Deangelo Noel MD Primary Care Provider Active Dr. Darren Zarate DO Emergency Provider Active Team Status: Active Member Role Status Dates No Primary Care Physician Primary Care Provider Active Team Status: Inactive Member Role Status Dates Dr. Keisha Handy DO Emergency Provider Active Start: October 19, 2024 End: October 19, 2024 No Primary Care Physician Primary Care Provider Active Start: October 19, 2024 End: October 19, 2024 Team Status: Inactive Member Role Status Dates Dr. Keisha Handy DO Attending Provider Active Start: October 19, 2024 End: October 19, 2024 Dr. Keisha Handy , Emergency Provider Active Start: October 19, 2024 End: October 19, 2024 No Primary Care Physician Primary Care Provider Active Start: October 19, 2024 End: October 19, 2024 Team Status: Inactive Member Role Status Dates No Primary Care Physician Primary Care Provider Active Start: November 11, 2024 End: November 11, 2024 Dr. Steven Donaldson , DO Referring Provider Activ e Start: November 11, 2024 End: November 11, 2024 Dr. Steven Donaldson DO Emergency Provider Activ e Start: November 11, 2024 End: November 11, 2024 Team Status: Inactive Member Role Status Dates No Primary Care Physician Primary Care Provider Active Start: November 11, 2024 End: November 11, 2024 Dr. Steven Donaldson DO Attending Provider Activ e Start: November 11, 2024 End: November 11, 2024 Dr. Steven Donaldson DO Referring Provider Activ e Start: November 11, 2024 End: November 11, 2024 Dr. Steven Donaldson DO Emergency Provider Activ e Start: November 11, 2024 End: November 11, 2024 Team Status: Inactive Member Role Status Dates No Primary Care Physician Primary Care Provider Active Start: December 12, 2024 End: December 12, 2024 Dr. Arik Boswell MD Emergency Provider Active Sta rt: December 12, 2024 End: December 12, 2024 Team Status: Inactive Member Role Status Dates No Primary Care Physician Primary Care Provider Active Start: December 13, 2024 End: December 14, 2024 Dr. Juan Rivas MD Emergency Provider Active Start: December 13, 2024 End: December 14, 2024 Team Status: Inactive Member Role Status Dates No Primary Care Physician Primary Care Provider Active Start: December 12, 2024 End: December 12, 2024 Dr. Arik Boswell MD Attending Provider Active Sta rt: December 12, 2024 End: December 12, 2024 Dr. Arik Boswell MD Emergency Provider Active Sta rt: December 12, 2024 End: December 12, 2024 Team Status: Inactive Member Role Status Dates No Primary Care Physician Primary Care Provider Active Start: December 13, 2024 End: December 14, 2024 Dr. Juan Rivas MD Attending Provider Active Start: December 13, 2024 End: December 14, 2024 Dr. Juan Rivas MD Emergency Provider Active Start: December 13, 2024 End: December 14, 2024 Team Status: Inactive Member Role Status Dates No Primary Care Physician Primary Care Provider Active Start: January 26, 2025 End: January 26, 2025 Dr. Keisha Handy DO Emergency Provider Active Start: January 26, 2025 End: January 26, 2025 Goals (unrecognized section and content) Goals may be documented in a n alternate sectionGoals may be documented in an alternate sectionGoals may be documented in an alternate sectionGoals may be documented in an alternate sectionGoals may be documented in an alternate sectionGoals may be documented in an alternate sectionGoals may be documented in an alternate sectionGoals may be documented in an alternate sectionGoals may be documented in an alternate sectionGoals may be documented in an alternate sectionGoals may be documented in an alternate sectionGoals may be documented in an alternate sectionGoals may be documented in an alternate sectionGoals may be documented in an alternate section FOR RECORDS PERTAINING TO PATIENTS WHO ARE OR HAVE BEEN ENROLLED IN A CHEMICAL DEPENDENCY/SUBSTANCEABUSE PROGRAM, SOME INFORMATION MAY BE OMITTED. This clinical summary was aggregated from multiple sources. Caution should be exercised in using it in the provision of clinical care. This summary normalizes information from multiple sources, and as a consequence, information in this document may materially change the coding, format and clinical context of patient data. In addition, data may be omitted in some cases. CLINICAL DECISIONS SHOULD BE BASED ON THE PRIMARY CLINICAL RECORDS. [employer] [facility]. provides no warranty or guarantee of the accuracy or completeness of information in this document.
[2025-02-05 03:35] LABS: Anion Gap 23 (5-15); BUN 19 mg/dL (4-19); BUN/Creat Ratio 19.9 RATIO (10-20); Carbon Dioxide 19.6 mmol/L (21.0-32.0); Chloride 86 mmol/L (98-108); Creatinine, Serum 0.97 mg/dL (0.70-1.20); EST Glomerular Filtration Rate 110 (>60); Estimated Creatinine Clearance 99.02 ml/min (50-250); Glucose 736 mg/dL (70-99); Potassium 4.5 mmol/L (3.3-5.1); Sodium Level 128 mmol/L (133-145)
[2025-02-05 03:42] LABS: Differential Comment SCANNED
--- NOTE | 2025-02-05 03:43 | PCM.HP.STD ---
HPI - General General Date of Admission: 02/05/25 Date of Service: 02/05/25 Chief Complaint: N/V, elevated BS. HPI Narrative The patient is a 29 y/o M w/ PMHx: Chronic microcytic anemia, IDDM, Anxiety and Depression, Chronic cognitive impairment with learning debilities chart reported, Tobacco use who presents to the [facility] ED on 02/05/2025 with history of onset of nausea and emesis starting at 6 PM the day prior to presentation with significantly elevated blood sugar despite taking his medications with no recent fevers or chills but persistent GI symptoms and elevated blood sugars prompted ED evaluation. Workup in the ED included T98.6, heart rate 118, respiratory rate 20, 98% on room air, CBC with WBC 13, hemoglobin 12.3, MCV 76.6, platelet 344 without marked shift, sodium 128, potassium 4.5, chloride 86, carbon oxide 19.6, anion gap 23, BUN/creatinine 19/0.97, GFR 110, glucose 736, calcium 10, pending hydroxybutyrate acid level upon evaluation. In the ED patient ministered 1 L normal saline, Zofran 4 mg IV x 1 and initiated on an insulin drip. [facility] Medical History Noncompliance with medication regimen Anxiety and depression Tobacco use Chronic anemia Learning difficulty due to cognitive limitations H/O fracture of skull Type I diabetes mellitus, uncontrolled Home Medications Medication Instructions Recorded Last Taken Type insulin lispro 100 unit/mL See Rx Instructions SQ TIDCM short 03/05/21 03/04/21 History subcutaneous pen acting insulin insulin glargine 100 unit/mL (3 30 unit subcut QPM diabetes 08/18/22 Unknown History mL) subcutaneous pen (Lantus Solostar U-100 Insulin) insulin glargine 100 unit/mL 35 unit subcut QHS 10/19/24 Unknown History subcutaneous solution (Lantus U-100 Insulin) insulin lispro 100 unit/mL 25 unit subcut TIDCM 10/19/24 Unknown History subcutaneous solution insulin syringe-needle U-100 0.5 10/19/24 Unknown History mL 31 gauge x 5/16" (TRUEplus Insulin) ondansetron 8 mg disintegrating 8 mg PO Q8H PRN nausea and 12/14/24 Unknown Rx tablet vomiting #12 tabs Allergy/AdvReac Type Severity Reaction Status Date / Time No Known Allergies Allergy Verified 02/05/25 02:24 Family History (Updated 02/05/25 @ 03:[address] Sarah Oh MD) Father Diabetes Mother , Age 26. Heart disease CAD (coronary artery disease) Hypertension Heart failure Surgical History H/O skin graft Social History household members: family Smoking Status: Current some day smoker tobacco type: cigarettes, e-cigarettes and smokeless tobacco Smokeless tobacco user: chewing tobacco second hand exposure: Yes alcohol intake: never substance use type: does not use ROS ROS Narrative Admission Review of Systems: CONSTITUTIONAL: No weight loss, fever, chills, + weakness or fatigue. HEENT: Eyes: No visual loss, blurred vision, double vision or yellow sclerae. Ears, Nose, Throat: No hearing loss, sneezing, congestion, runny nose or sore throat. SKIN: No rash or itching, lesions, wounds. CARDIOVASCULAR: No chest pain, chest pressure or chest discomfort, palpitations, edema, orthopnea, syncopal events. RESPIRATORY: + Mild dyspnea. No cough or sputum, wheezing, hemoptysis. GASTROINTESTINAL: + anorexia, nausea, vomiting. No diarrhea, abdominal pain, melena, BRBPR. GENITOURINARY: No dysuria, frequency, urgency or retention. NEUROLOGICAL: No headache, dizziness, syncope, paralysis, ataxia, numbness or tingling in the extremities, focal weakness, change in bowel or bladder control, seizure. MUSCULOSKELETAL: No muscle, back pain, joint pain or stiffness. HEMATOLOGIC: No anemia, bleeding or bruising. LYMPHATICS: No enlarged nodes. No history of splenectomy. PSYCHIATRIC: + History of anxiety and depression. ENDOCRINOLOGIC: No reports of sweating, cold or heat intolerance. + polyuria or polydipsia. ALLERGIES: No history of asthma, hives, eczema or rhinitis. Vital Signs Vital Signs Vital Signs: 02/05/25 02:20 Temperature 98.6 F Temperature Source Oral Pulse Rate 118 H Respiratory Rate 20 H Pulse Ox 98 Oxygen Delivery Method Room Air Weight Weight: 134 lb 14.766 oz Body Mass Index (BMI) 18.3 Physical Exam Narrative Physical Examination: General: Awake, alert, oriented x 3 and cooperative, laying in the ED bed, fatigued and disheveled appearing. Skin: Normal color, normal turgor, no icterus, no cyanosis except occasional stage ecchymoses, abrasion. HEENT: AT/NC, EOMI, PERRLA, dry MM, no carotid bruits or JVD noted. Lungs: Mildly diminished, greater bases, mildly increased respiratory rate but no distress, no rales, ronchi or wheezing. Heart: Tachycardic with regular rhythm; no gallop, rub audible. Abdomen: Soft, NTTP, ND, hyperactive BS, no appreciated HSM. Extremities: No cyanosis, no clubbing, no significant pitting edema, status post previous trauma history with evidence of previous grafts. Neurological: Patient awake, alert, oriented as noted, cognitive function intact; pupils equally reactive to light and accommodation, cranial nerves grossly normal, moving all 4 extremities, no focal deficits, strength severely globally decreased secondary to acute presentation. Psychiatric: Affect appears flat, fatigued, ill-appearing, no acute evidence of depressive or anxiety feelings. Results Lab / Micro Data 02/05/25 02:22 02/05/25 02:22 Labs: Laboratory Results - last 24 hr 02/05/25 02:22: WBC 13.0 H, RBC 5.13, Hgb 12.3 L, Hct 39.3 L, MCV 76.6 L, MCH 24.0 L, MCHC 31.3 L, RDW Std Deviation 45.2 H, RDW Coeff of Alec 16.2 H, Plt Count 344, MPV 11.4, Immature Gran % (Auto) 0.200, Neut % (Auto) 55.6, Lymph % (Auto) 31.1, [place] % (Auto) 9.0, Eos % (Auto) 3.4, Baso % (Auto) 0.7, Absolute Neuts (auto) 7.3, Absolute Lymphs (auto) 4.05, Nucleated RBC % 0, Differential Comment SCANNED, Sodium 128 L, Potassium 4.5, Chloride 86 L, Carbon Dioxide 19.6 L, Anion Gap 23 H, BUN 19, Creatinine 0.97, Estim Creat Clear Calc 99.02, Est GFR (MDRD) Non-Af 110, BUN/Creatinine Ratio 19.9, Glucose 736 H*, Calcium 10.0, POC Glucose > 500 H* Assessment & Plan Assessment/Plan (1) DKA (diabetic ketoacidosis): PLAN: Plan The patient is a 29 y/o M w/ PMHx: Chronic microcytic anemia, IDDM, Anxiety and Depression, Chronic cognitive impairment with learning debilities chart reported, Tobacco use who presents to the [facility] ED on 02/05/2025 with history of onset of nausea and emesis starting at 6 PM the day prior to presentation with significantly elevated blood sugar despite taking his medications with no recent fevers or chills but persistent GI symptoms and elevated blood sugars prompted ED evaluation. #1. DKA w/ Diabetes mellitus type I: Will admit to the ICU, will continue on insulin drip, check serial K+, glucose w/ IVF changes pending these levels, serial chemistry, obtain mag, phos daily w/ repletion as needed, transition to home SC regimen when gap closed w/ overlap on drip, nutrition consultation. Maintain on IV PPI while n.p.o. status. Encouraged diet and insulin regimen compliance. Hemoglobin A1c requested. #2. Anxiety and depression: Per current list on a regimen, encourage continued outpatient follow-up and evaluation especially given #1. #3. Tobacco Abuse: Encouraged cessation, inpatient consultation per RT, NR if desired. #4. Chronic microcytic anemia: Admission hemoglobin 12.3, MCV 76.6, baseline hemoglobin primarily 12-13 range, stable, continue to closely trend, iron panel, ferritin, guaiac requested. #5. DVT prophylaxis: Lovenox. Charges/Coding Visit Charges Inpatient E&M: 91985 Init Hosp L3
[2025-02-05 03:53] LABS: Bacteria 0 SEEN /hpf (None Seen); Mucous, Urine 0 SEEN /hpf (<or=2+); Squamous Epithelial Cells - UA 0 SEEN /hpf (0-5); White Blood Cells 0 SEEN /hpf (0-5)
[2025-02-05 04:00] LABS: Color, Urine Straw (Yellow); Glucose, Dipstick 1000 mg/dl (Normal); Leukocyte Esterase-Dipstick Negative /ul (Negative); Nitrite-Dipstick Negative (Negative); Occult Blood-Urine 25 /ul (Negative); Protein-Dipstick 30 mg/dl (Negative); Urine Bilirubin Dipstick Negative (Negative); Urine Clarity Clear (Clear); Urine Urobilinogen Normal (Normal)
[2025-02-05 04:18] LABS: Bedside Glucose 430 mg/dL (74-106)
--- OUTSIDE RECORDS SUMMARY | 2025-02-05 04:41 | XMS RPT_ITS | CCD ---
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 Erythrocyte distribution wid th ratioOrdered By: Beverly Ca on 01-26-2025 Erythrocyte distribution width (RBC) [Ratio] 15.8 % High 11.6-14.6 [facility] Erythrocyte distribution wid th standard deviationOrdered By: Beverly Ca on 01-26-2025 Erythrocyte distribution width (RBC) [Ratio] 42.6 fl 35.1-43.9 [facility] Glomerular filtration rate ( GFR) estimation/1.73 sq m using serum, plasma, or whole bOrdered By: Beverly Ca on 01-26-2025 GFR/1.73 sq M.predicted among non-blacks MDRD (S/P/Bld) [Vol rate/Area] 132 mL/min/{1.73_m2} >60 [facility] Comment on above: mL/min/1.73m2 CKD-EP I Creatinine Equation (2020) [facility] deOrdered By: Keisha Handy on 01-26-2025 Glucose [Mass/Vol] 189 mg/dL High 74-106 [facility] Comment on above: MANAGEMENT OF PATIEN T CARE PER NURSING PROTOCOL Hematocrit Auto (Bld) [Volum e fraction]Ordered By: Beverly Ca on 01-26-2025 Hematocrit (Bld) [Volume fraction] 38.7 % Low 40-54 [facility] Hemoglobin measurementOrdere d By: Beverly Ca on 01-26-2025 Hemoglobin (Bld) [Mass/Vol] 12.4 g/dL Low 13.0-16.5 [facility] Immature granulocytes/100 WB C Auto (Bld)Ordered By: Beverly Ca on 01-26-2025 Immature granulocytes/100 WBC (Bld) 0.300 % 0.0-0.9 [facility] Comment on above: IG% - Immature Granu locytes (promyelocytes, myelocytes and metamyelocytes) > 1% indicates that a LEFT SHIFT is Present. L501.4021on 01-26-2025 Trop T High Sen 15 ng/L Normal <=22 [facility] Comment on above: Performed By: #### L 500.2500, L100.0100 #### [facility] [place], [address] MCV (mean corpuscular volume ) determinationOrdered By: Beverly Ca on 01-26-2025 MCV (RBC) [Entitic vol] 75.1 fL Low 80-94 [facility] Mean corpuscular hemoglobin (MCH) determinationOrdered By: Beverly Ca on 01-26-2025 MCH (RBC) [Entitic mass] 24.1 pg Low 27.0-32.0 [facility] Mean corpuscular hemoglobin concentration (MCHC) determinationOrdered By: Beverly Ca on 01-26-2025 MCHC (RBC) [Mass/Vol] 32.0 g/dL 32-36 [facility] Mean platelet volume determi nationOrdered By: Beverly Ca on 01-26-2025 Platelet mean volume (Bld) [Entitic vol] 10.8 fL 6.2-12.0 [facility] Monocyte percentageOrdered B y: Beverly Ca on 01-26-2025 Monocytes/100 WBC (Bld) 6.8 % 0-10 [facility] Neutrophil percentageOrdered By: Beverly Ca on 01-26-2025 Neutrophils/100 WBC (Bld) 58.3 % 47-70 [facility] No Panel InformationOrdered By: Beverly Ca on 01-26-2025 Urine Buprenorphine Qualitative Negative < 200 ng/mL [facility] Urine Oxycodone Screen Negative < 100 ng/mL [facility] No Panel InformationOrdered By: Keisha Handy on 01-26-2025 Blood Gas Sample Site Not entered [facility] Blood Gas Specimen Type JAIDEN [facility] Oxygen Delivery Device Not entered [facility] Nucleated red blood cell per centageOrdered By: Beverly Ca on 01-26-2025 Nucleated RBC/100 WBC (Bld) [Ratio] 0 % 0-5 [facility] Platelet countOrdered By: Katarina Ca on 01-26-2025 Platelets (Bld) [#/Vol] 328 10*3/uL 150-450 [facility] Potassium measurement (mass/ volume)Ordered By: Beverly Ca on 01-26-2025 Potassium (Unsp spec) [Mass/Vol] 4.3 mmol/L 3.3-5.1 [facility] Quantitative urine opiates m easurementOrdered By: Beverly Ca on 01-26-2025 Opiates Ql (U) Negative < 300 ng/mL [facility] RBC Auto (Bld) [#/Vol]Ordere d By: Beverly Ca on 01-26-2025 RBC (Bld) [#/Vol] 5.15 10*6/uL 4.6-6.2 [facility] Screening urine fentanyl yaya surementOrdered By: Beverly Ca on 01-26-2025 fentaNYL Screen Ql (U) Negative [facility] Serum creatinine measurement (mass/volume)Ordered By: Beverly Ca on 01-26-2025 Creatinine [Mass/Vol] 0.65 mg/dL Low 0.70-1.20 [facility] Serum glucose measurement (m ass/volume)Ordered By: Beverly Ca on 01-26-2025 Glucose [Mass/Vol] 484 mg/dL High 70-99 [facility] Comment on above: Critical Result(s) C alled at: 01/26/2025-12:56 by: Koko Oh to Ge Long. Results read back by same. Serum or plasma calcium koby urement (mass/volume)Ordered By: Beverly Ca on 01-26-2025 Calcium [Mass/Vol] 8.7 mg/dL 7.6-11.0 [facility] Serum or plasma urea nitroge n measurement (mass/volume)Ordered By: Beverly Ca on 01-26-2025 Urea nitrogen [Mass/Vol] 18 mg/dL 4-19 [facility] Sodium levelOrdered By: Beverly Ca on 01-26-2025 Sodium [Moles/Vol] 133 mmol/L 133-145 [facility] TSH DL <= 0.005 mIU/L QnOrde red By: Beverly Ca on 01-26-2025 TSH Qn 2.430 uIU/mL 0.300-4.20 0 [facility] Thyroid Stim Hormone (TSH)on 01-26-2025 TSH 2.430 uIU/mL Normal 0.300-4.20 0 [facility] Comment on above: Performed By: #### L 300.8000, L501.9520, L505.5000, L100.0100, L500.2500 ####[facility] [address] [place], [address] Troponin T.cardiac [Mass/vol ume] in Serum or Plasma by High sensitivity methodOrdered By: Beverly Ca on 01-26-2025 Troponin T.cardiac High sensitivity method [Mass/Vol] 15 ng/L <22 [facility] Comment on above: Delta: 8 on 10/19/24 Urine Drug Screen (VISTA)on 01-26-2025 AMPHETAMINES Negative Normal <1000 ng/mL [facility] Comment on above: Performed By: #### L 300.8000, L501.9520, L505.5000, L100.0100, L500.2500 ####[facility] [address] [place], [place], [phone] BARBITIURATES Negative Normal < 200 ng/mL [facility] Comment on above: Performed By: #### L 300.8000, L501.9520, L505.5000, L100.0100, L500.2500 ####[facility] [address] [place], [phone] BENZODIAZIPINE Negative Normal < 200 ng/mL [facility] Comment on above: Performed By: #### L 300.8000, L501.9520, L505.5000, L100.0100, L500.2500 ####[facility] [address] [place], [phone] BUP Ur Drug Scr Negative Normal < 200 ng/mL [facility] Comment on above: Performed By: #### L 300.8000, L501.9520, L505.5000, L100.0100, L500.2500 ####[facility] [address] [place] [address] COCAINE Negative Normal < 300 ng/mL [facility] Comment on above: Performed By: #### L 300.8000, L501.9520, L505.5000, L100.0100, L500.2500 ####[facility] [address] [place], [phone] Fentanyl Negative Normal [facility] Comment on above: Performed By: #### L 300.8000, L501.9520, L505.5000, L100.0100, L500.2500 ####[facility] [address] [place], [address] METHADONE Negative Normal < 300 ng/mL [facility] Comment on above: Performed By: #### L 300.8000, L501.9520, L505.5000, L100.0100, L500.2500 ####[facility] [address] [place], [address] OPIATES Negative Normal < 300 ng/mL [facility] Comment on above: Performed By: #### L 300.8000, L501.9520, L505.5000, L100.0100, L500.2500 ####[facility] [address] [place], [phone] OXYCODONE Negative Normal < 100 ng/mL [facility] Comment on above: Performed By: #### L 300.8000, L501.9520, L505.5000, L100.0100, L500.2500 ####[facility] [address] [place], [address] PCP Negative Normal < 25 ng/mL [facility] Comment on above: Performed By: #### L 300.8000, L501.9520, L505.5000, L100.0100, L500.2500 ####[facility] [address] [place], [phone] THC Negative Normal < 50 ng/mL [facility] Comment on above: Performed By: #### L 300.8000, L501.9520, L505.5000, L100.0100, L500.2500 ####[facility] [address] [place], [address] Urine benzodiazepine levelOr dered By: Beverly Ca on 01-26-2025 Benzodiazepines Ql (U) Negative < 200 ng/mL [facility] Urine cocaine levelOrdered B y: Beverly Medinaashlyngerber on 01-26-2025 Cocaine Ql (U) Negative < 300 ng/mL [facility] Urine vesqr-1-zrbwvxgjlvhopp abinol (THC) measurementOrdered By: Beverly Medinaashlyngerber on 01-26-2025 Cannabinoids Screen Ql (U) Negative < 50 ng/mL [facility] Urine phencyclidine (PCP) de tectionOrdered By: Beverly Lanny on 01-26-2025 Phencyclidine Ql (U) Negative < 25 ng/mL [facility] Venous Blood Gason 5 Blood Gas Type JAIDEN Normal [facility] Comment on above: Performed By: #### L 9000.0810 ####[facility] [address] [place], [address] CO2 [Moles/Vol] 29 mmol/L Normal 23-33 [facility] Comment on above: Performed By: #### L 9000.0810 ####[facility] [address] [place], [address] HCO3 (Bld) [Moles/Vol] 27 mmol/L High 22-26 [facility] Comment on above: Performed By: #### L 9000.0810 ####[facility] [address] [place], [address] O2 Delivery Dev Not entered Normal [facility] Comment on above: Performed By: #### L 9000.0810 ####[facility] [address] [place], [address] SITE Not entered Normal [facility] Comment on above: Performed By: #### L 9000.0810 ####[facility] [address] [place], [address] VBG BE 2 mmol/L Normal -1.0-3.5 [facility] Comment on above: Performed By: #### L 9000.0810 ####[facility] [address] [place], [place], [address] VBG pCO2 45.0 mmHg Normal 41-51 [facility] Comment on above: Performed By: #### L 9000.0810 ####[facility] [address] [place], [place], [id number] VBG pH 7.39 Normal 7.32-7.42 [facility] Comment on above: Performed By: #### L 9000.0810 ####[facility] [address] [place], [address] VBG PO2 51 mmHg High 25-40 [facility] Comment on above: Performed By: #### L 9000.0810 ####[facility] [address] [place], [place], [id number] VBG SO2 85 High 50-70 [facility] Comment on above: Performed By: #### L 9000.0810 ####[facility] [address] [place], [place], [address] Venous blood base excess yaya surementOrdered By: Keisha Handy on 01-26-2025 Base excess Calc (BldV) [Moles/Vol] 2 mmol/L -1.0-3.5 [facility] Venous blood bicarbonate yaya surementOrdered By: Keisha Handy on 01-26-2025 HCO3 (Bld) [Moles/Vol] 27 mmol/L High 22-26 [facility] Venous blood oxygen saturati on measurementOrdered By: Keisha Handy on 01-26-2025 Oxygen saturation in Blood 85 % High 50-70 [facility] Venous blood pH measurementO rdered By: Keisha Handy on 01-26-2025 pH (BldV) 7.39 [pH] 7.32-7.42 [facility] Venous blood partial pressur e of carbon dioxide measurementOrdered By: Keisha Handy on 01-26-2025 CO2 (BldV) [Partial pressure] 45.0 mm[Hg] 41-51 [facility] Venous blood partial pressur e of oxygen measurementOrdered By: Keisha Handy on 01-26-2025 Oxygen (BldV) [Partial pressure] 51 mm[Hg] High 25-40 [facility] White blood cell (WBC) count Ordered By: Beverly Ca on 01-26-2025 WBC (Bld) [#/Vol] 10.4 10*3/uL 4.4-11.0 [facility] Anion gap in Serum or Plasma Ordered By: Juan Rivas on 12-14-2024 Anion gap [Moles/Vol] 9 mmol/L 12-21 [facility] BUN/creatinine ratioOrdered By: Juan Rivas on 12-14-2024 Urea nitrogen/Creatinine [Mass ratio] 16.2 mg/mg 05-28 [facility] Basic Metabolic Profile (BMP )on 12-14-2024 BUN/CRE 16.2 RATIO Normal 05-28 [facility] Comment on above: Performed By: #### L 500.2500, L100.0100 #### [facility] [address] [place], [address] Calcium [Mass/Vol] 7.8 mg/dL Normal 7.6-11.0 [facility] Comment on above: Performed By: #### L 500.2500, L100.0100 #### [facility] [address] [place], [address] Chloride [Moles/Vol] 103 mmol/L Normal 98-108 [facility] Comment on above: Performed By: #### L 500.2500, L100.0100 #### [facility] [address] [place], [address] CO2 [Moles/Vol] 24.0 mmol/L Normal 21.0-32.0 [facility] Comment on above: Performed By: #### L 500.2500, L100.0100 #### [facility] [address] [place], [address] Creatinine [Mass/Vol] 0.64 mg/dL Low 0.70-1.20 [facility] Comment on above: Performed By: #### L 500.2500, L100.0100 #### [facility] [address] [place], [address] ECRCL 126.32 ml/min Normal 50-250 [facility] Comment on above: Performed By: #### L 500.2500, L100.0100 #### [facility] [address] [place], [address] GAP 9 Normal 5-15 [facility] Comment on above: Performed By: #### L 500.2500, L100.0100 #### [facility] [address] [place], [address] GFR/1.73 sq M.predicted among non-blacks MDRD (S/P/Bld) [Vol rate/Area] 133 mL/min/{1.73_m2} Normal >60 [facility] Comment on above: Result Comment: mL/m in/1.73m2 CKD-EPI Creatinine Equation (2020) Performed By: #### L 500.2500, L100.0100 #### [facility] [address] [place], [address] Glucose [Mass/Vol] 275 mg/dL High 70-99 [facility] Comment on above: Performed By: #### L 500.2500, L100.0100 #### [facility] [address] [place], [address] Potassium [Moles/Vol] 3.6 mmol/L Normal 3.3-5.1 [facility] Comment on above: Performed By: #### L 500.2500, L100.0100 #### [facility] [address] [place], [address] Sodium [Moles/Vol] 136 mmol/L Normal 133-145 [facility] Comment on above: Performed By: #### L 500.2500, L100.0100 #### [facility] [address] [place], [address] Urea nitrogen [Mass/Vol] 10 mg/dL Normal 4-19 [facility] Comment on above: Performed By: #### L 500.2500, L100.0100 #### [facility] [address] [place], [address] Bedside Glucoseon 12-14-2024 FINGERSTICK GLU 286 mg/dL High 74-106 [facility] Comment on above: Result Comment: TEJAL GEMENT OF PATIENT CARE PER NURSING PROTOCOL Performed By: #### L 500.2500, L100.0100 #### [facility] [address] [place], [address] FINGERSTICK GLU 262 mg/dL High 74-106 [facility] Comment on above: Result Comment: TEJAL GEMENT OF PATIENT CARE PER NURSING PROTOCOL Performed By: #### L 501.080 #### [facility] [address] [place], [address] FINGERSTICK GLU 337 mg/dL High 74-106 [facility] Comment on above: Result Comment: TEJAL GEMENT OF PATIENT CARE PER NURSING PROTOCOL Performed By: #### L 501.080 #### [facility] [address] [place], [address] FINGERSTICK GLU 433 mg/dL High -106 [facility] Comment on above: Result Comment: TEJAL GEMENT OF PATIENT CARE PER NURSING PROTOCOL Performed By: #### L 501.080 ####[facility] [address] [place], [address] Carbon dioxide, total [Moles /volume] in Central venous bloodOrdered By: Juan Rivas on 12-14-2024 CO2 [Moles/Vol] 24.0 mmol/L 21.0-32.0 [facility] Chloride assayOrdered By: Cesar Rivas on 12-14-2024 Chloride [Moles/Vol] 103 mmol/L 98-108 [facility] Glomerular filtration rate ( GFR) estimation/1.73 sq m using serum, plasma, or whole bOrdered By: Juan Rivas on 12-14-2024 GFR/1.73 sq M.predicted among non-blacks MDRD (S/P/Bld) [Vol rate/Area] 133 mL/min/{1.73_m2} >60 [facility] Comment on above: mL/min/1.73m2 CKD-EP I Creatinine Equation (2020) Glucose measurement at [facility] deOrdered By: Juan Rivas on 12-14-2024 Glucose [Mass/Vol] 286 mg/dL High 74-106 [facility] Comment on above: MANAGEMENT OF PATIEN T CARE PER NURSING PROTOCOL Potassium measurement (mass/ volume)Ordered By: Juan Rivas on 12-14-2024 Potassium (Unsp spec) [Mass/Vol] 3.6 mmol/L 3.3-5.1 [facility] Serum creatinine measurement (mass/volume)Ordered By: Juan Rivas on 12-14-2024 Creatinine [Mass/Vol] 0.64 mg/dL Low 0.70-1.20 [facility] Serum glucose measurement (m ass/volume)Ordered By: Juan Rivas on 12-14-2024 Glucose [Mass/Vol] 275 mg/dL High 70-99 [facility] Serum or plasma calcium koby urement (mass/volume)Ordered By: Juan Rivas on 12-14-2024 Calcium [Mass/Vol] 7.8 mg/dL 7.6-11.0 [facility] Serum or plasma urea nitroge n measurement (mass/volume)Ordered By: Juan Rivas on 12-14-2024 Urea nitrogen [Mass/Vol] 10 mg/dL 4-19 [facility] Sodium levelOrdered By: Sav Rivas on 12-14-2024 Sodium [Moles/Vol] 136 mmol/L 133-145 [facility] 12 Lead EKGon 12-13-2024 12 Lead EKG [facility] [address] [place] [address] 12 Lead EKG 12/13/24 2230 MR#: [id number] Acct: [id number] Name: UNA COSBY Rep #: [id number] : 1995 29 From: Doyle Morales MD [...] normal ECG Confirmed by Doyle Morales ([id number]), video effects editor DOMINIC KEENE ([id number]) on 12/15/2024 12:14:41 PM Referred By: Confirmed By: Doyle Morales 12/15/24 1214 Date Doyle Morales MD CC: Dr. Juan Rivas MD; No Primary Care Physician Signed Normal [facility] Absolute lymphocyte countOrd ered By: Juan Rivas on 12-13-2024 Lymphocytes Auto (Unsp spec) [#/Vol] 3.83 10*3/uL 0.83-4.51 [facility] Absolute neutrophil countOrd ered By: Juan Rivas on 12-13-2024 Neutrophils (Bld) [#/Vol] 6.1 10*3/uL 2.0-7.7 [facility] Automated lymphocyte count a s percentage of total leukocytesOrdered By: Juan Rivas on 12-13-2024 Lymphocytes/100 WBC Auto (Unsp spec) 33.9 % 19-41 [facility] Basic Metabolic Profile (BMP )on 12-13-2024 BUN/CRE 16.3 RATIO Normal 10-20 [facility] Comment on above: Performed By: #### L 500.2500, L100.0100 #### [facility] [address] [place], [address] Calcium [Mass/Vol] 9.0 mg/dL Normal 7.6-11.0 [facility] Comment on above: Performed By: #### L 500.2500, L100.0100 #### [facility] [address] [place], [address] Chloride [Moles/Vol] 90 mmol/L Low 98-108 [facility] Comment on above: Performed By: #### L 500.2500, L100.0100 #### [facility] [address] [place], [address] CO2 [Moles/Vol] 27.2 mmol/L Normal 21.0-32.0 [facility] Comment on above: Performed By: #### L 500.2500, L100.0100 #### [facility] [address] [place], [address] Creatinine [Mass/Vol] 0.84 mg/dL Normal 0.70-1.20 [facility] Comment on above: Performed By: #### L 500.2500, L100.0100 #### [facility] [address] [place], [address] ECRCL 96.24 ml/min Normal 50-250 [facility] Comment on above: Performed By: #### L 500.2500, L100.0100 #### [facility] [address] [place], [address] GAP 12 Normal 5-15 [facility] Comment on above: Performed By: #### L 500.2500, L100.0100 #### [facility] [address] [place], [address] GFR/1.73 sq M.predicted among non-blacks MDRD (S/P/Bld) [Vol rate/Area] 123 mL/min/{1.73_m2} Normal >60 [facility] Comment on above: Result Comment: mL/m in/1.73m2 CKD-EPI Creatinine Equation (2020) Performed By: #### L 500.2500, L100.0100 #### [facility] [address] [place], [address] Glucose [Mass/Vol] 520 mg/dL Invalid Interpretation Code 70-99 [facility] Comment on above: Result Comment: Crit ical Result(s) Called at: 2248 by: WILLIAM HERRERA TO GE TENNENT??Results read back by same. Performed By: #### L 500.2500, L100.0100 #### [facility] [address] [place], [address] Potassium [Moles/Vol] 5.3 mmol/L High 3.3-5.1 [facility] Comment on above: Performed By: #### L 500.2500, L100.0100 #### [facility] [address] [place], [address] Sodium [Moles/Vol] 129 mmol/L Low 133-145 [facility] Comment on above: Performed By: #### L 500.2500, L100.0100 #### [facility] [address] [place], [address] Urea nitrogen [Mass/Vol] 14 mg/dL Normal 4-19 [facility] Comment on above: Performed By: #### L 500.2500, L100.0100 #### [facility] [address] [place], [address] Basophil percentageOrdered B y: Juaneddi Rivas on 12-13-2024 Basophils/100 WBC (Bld) 0.6 % 0-1 [facility] Bedside Glucoseon 12-13-2024 FINGERSTICK GLU 490 mg/dL Invalid Interpretation Code 74-106 [facility] Comment on above: Result Comment: Dr Erica egan Followed MANAGEMENT OF PATIENT CARE PER NURSING PROTOCOL Performed By: #### L 500.2500, L100.0100 #### [facility] [address] [place], [address] Beta-Hydroxbytyrateon 2024 BETA-HYDROXYBUT 1.7 mmol/L Normal 0.0-0.3 [facility] Comment on above: Performed By: #### L 500.2500, L100.0100 #### [facility] [address] [place], [address] Beta-hydroxybutyrateOrdered By: Juan Rivas on 12-13-2024 Beta hydroxybutyrate [Mass/Vol] 1.7 mmol/L 0.0-0.3 [facility] Bilirubin Test strip Ql (U)O rdered By: Juan Rivas on 12-13-2024 Bilirubin Ql (U) Negative Negative [facility] CBC W/Diff, Automatedon Absolute Lymph 3.83 X10 3/uL Normal 0.83-4.51 [facility] Comment on above: Performed By: #### L 100.0100 ####[facility] [address] [place], [address] Absolute Neut 6.1 X10 3/uL Normal 2.0-7.7 [facility] Comment on above: Performed By: #### L 100.0100 ####[facility] [address] [place], [address] Basophils/100 WBC (Bld) 0.6 % Normal 0-1 [facility] Comment on above: Performed By: #### L 100.0100 ####[facility] [address] [place], [address] Eosinophils/100 WBC (Bld) 3.3 % Normal 0-5 [facility] Comment on above: Performed By: #### L 100.0100 ####[facility] [address] [place], [address] Erythrocyte distribution width (RBC) [Ratio] 15.2 % High 11.6-14.6 [facility] Comment on above: Performed By: #### L 100.0100 ####[facility] [address] [place], [address] Hematocrit (Bld) [Volume fraction] 43.1 % Normal 40-54 [facility] Comment on above: Performed By: #### L 100.0100 ####[facility] [address] [place], [address] Hemoglobin (Bld) [Mass/Vol] 13.9 g/dL Normal 13.0-16.5 [facility] Comment on above: Performed By: #### L 100.0100 ####[facility] [address] [place], [address] IG% 0.300 Normal 0.0-0.9 [facility] Comment on above: Result Comment: IG% - Immature Granulocytes (promyelocytes, myelocytes and metamyelocytes) > 1% indicates that a LEFT SHIFT is Present. Performed By: #### L 100.0100 ####[facility] [address] [place], [address] Lymphocytes/100 WBC (Bld) 33.9 % Normal 19-41 [facility] Comment on above: Performed By: #### L 100.0100 ####[facility] [address] [place], [address] MCH (RBC) [Entitic mass] 23.4 pg Low 27.0-32.0 [facility] Comment on above: Performed By: #### L 100.0100 ####[facility] [address] [place], [address] MCHC (RBC) [Mass/Vol] 32.3 g/dL Normal 32-36 [facility] Comment on above: Performed By: #### L 100.0100 ####[facility] [address] [place], [address] MCV (RBC) [Entitic vol] 72.7 fL Low 80-94 [facility] Comment on above: Performed By: #### L 100.0100 ####[facility] [address] [place], [address] Monocytes/100 WBC (Bld) 8.1 % Normal 0-10 [facility] Comment on above: Performed By: #### L 100.0100 ####[facility] [address] [place], [address] Neutrophils/100 WBC (Bld) 53.8 % Normal 47-70 [facility] Comment on above: Performed By: #### L 100.0100 ####[facility] [address] [place], [address] Nucleated RBC (Bld) [#/Vol] 0 10*3/uL Normal 0-5 [facility] Comment on above: Performed By: #### L 100.0100 ####[facility] [address] [place], [address] Platelet mean volume (Bld) [Entitic vol] 10.5 fL Normal 6.2-12.0 [facility] Comment on above: Performed By: #### L 100.0100 ####[facility] [address] [place], [address] Platelets (Bld) [#/Vol] 449 10*3/uL Normal 150-450 [facility] Comment on above: Performed By: #### L 100.0100 ####[facility] [address] [place], [address] RBC (Bld) [#/Vol] 5.93 10*6/uL Normal 4.6-6.2 [facility] Comment on above: Performed By: #### L 100.0100 ####[facility] [address] [place], [address] RDW SD 38.6 fl Normal 35.1-43.9 [facility] Comment on above: Performed By: #### L 100.0100 ####[facility] [address] [place], [address] WBC (Bld) [#/Vol] 11.3 10*3/uL High 4.4-11.0 [facility] Comment on above: Performed By: #### L 100.0100 ####[facility] [address] [place], [address] CO2 (BldV) [Moles/Vol]Ordere d By: Juan Rivas on 12-13-2024 CO2 [Moles/Vol] 28 mmol/L 23-33 [facility] Emergency Department Summary on 12-13-2024 Emergency Department Summary [facility] Medical Records Department [address] [place] [address] Emergency Department Summary 12/13/24 MR#: [id number] Acct: [id number] Name: UNA COSBY Rep #: [id number] : 1995 29 From: Juan Rivas MD [...] he cannot keep anything down all day. [facility] Medical History Learning difficulty due to cognitive [...] 10/19/24 Unknown History mL 31 gauge x 12/22" (TRUEplus Insulin) ondansetron 8 mg disintegrating 8 [...] edema o (more content not included)... Normal [facility] Eosinophil percentageOrdered By: Juan Rivas on 12-13-2024 Eosinophils/100 WBC (Bld) 3.3 % 0-5 [facility] Erythrocyte distribution wid th ratioOrdered By: Juan Rivas on 12-13-2024 Erythrocyte distribution width (RBC) [Ratio] 15.2 % High 11.6-14.6 [facility] Erythrocyte distribution wid th standard deviationOrdered By: Juan Rivas on 12-13-2024 Erythrocyte distribution width (RBC) [Ratio] 38.6 fl 35.1-43.9 [facility] Hematocrit Auto (Bld) [Volum e fraction]Ordered By: Juan Rivas on 12-13-2024 Hematocrit (Bld) [Volume fraction] 43.1 % 40-54 [facility] Hemoglobin measurementOrdere d By: Juan Rivas on 12-13-2024 Hemoglobin (Bld) [Mass/Vol] 13.9 g/dL 13.0-16.5 [facility] Immature granulocytes/100 WB C Auto (Bld)Ordered By: Juan Rivas on 12-13-2024 Immature granulocytes/100 WBC (Bld) 0.300 % 0.0-0.9 [facility] Comment on above: IG% - Immature Granu locytes (promyelocytes, myelocytes and metamyelocytes) > 1% indicates that a LEFT SHIFT is Present. Ketones Test strip Ql (U)Ord ered By: Juan Rivas on 12-13-2024 Ketones Ql (U) 5 mg/dl High Negative [facility] MCV (mean corpuscular volume ) determinationOrdered By: Juan Rivas on 12-13-2024 MCV (RBC) [Entitic vol] 72.7 fL Low 80-94 [facility] Mean corpuscular hemoglobin (MCH) determinationOrdered By: Juan Rivas on 12-13-2024 MCH (RBC) [Entitic mass] 23.4 pg Low 27.0-32.0 [facility] Mean corpuscular hemoglobin concentration (MCHC) determinationOrdered By: Juan Rivas on 12-13-2024 MCHC (RBC) [Mass/Vol] 32.3 g/dL 32-36 [facility] Mean platelet volume determi nationOrdered By: Juan Rivas on 12-13-2024 Platelet mean volume (Bld) [Entitic vol] 10.5 fL 6.2-12.0 [facility] Microscopic analysis of urin e for red blood cells (RBC)Ordered By: Juan Rivas on 12-13-2024 Microscopic analysis of urine for red blood cells (RBC) 0 SEEN /hpf 0-5 [facility] Monocyte percentageOrdered B y: Juan Rivas on 12-13-2024 Monocytes/100 WBC (Bld) 8.1 % 0-10 [facility] Mucus LM Ql (Urine sed)Order ed By: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 Dev Room Air Normal [facility] Comment on above: Performed By: #### L 9000.0810 ####[facility] [address] [place], [address] SITE Not entered [facility] Comment on above: Performed By: #### L 9000.0810 ####[facility] [address] [place], [address] VBG BE 2 mmol/L Normal -1.0-3.5 [facility] Comment on above: Performed By: #### L 9000.0810 ####[facility] [address] [place], [place], [id number] VBG pCO2 39.6 mmHg Low 41-51 [facility] Comment on above: Performed By: #### L 9000.0810 ####[facility] [address] [place], [place], [id number] VBG pH 7.44 High 7.32-7.42 [facility] Comment on above: Performed By: #### L 9000.0810 ####[facility] [address] [place], [place], [id number] VBG PO2 40 mmHg Normal 25-40 [facility] Comment on above: Performed By: #### L 9000.0810 ####[facility] [address] [place], [place], [id number] VBG SO2 76 High 50-70 [facility] Comment on above: Performed By: #### L 9000.0810 ####[facility] [address] [place], [place], [id number] Venous blood base excess yaya surementOrdered By: Steven Donaldson on 11-11-2024 Base excess Calc (BldV) [Moles/Vol] 2 mmol/L -1.0-3.5 [facility] Venous blood bicarbonate yaya surementOrdered By: Steven Donaldson on 11-11-2024 HCO3 (Bld) [Moles/Vol] 27 mmol/L High 22-26 [facility] Venous blood oxygen saturati on measurementOrdered By: Steven Donaldson on 11-11-2024 Oxygen saturation in Blood 76 % High 50-70 [facility] Venous blood pH measurementO rdered By: Steven Donaldson on 11-11-2024 pH (BldV) 7.44 [pH] High 7.32-7.42 [facility] Venous blood partial pressur e of carbon dioxide measurementOrdered By: Steven Donaldson on 11-11-2024 CO2 (BldV) [Partial pressure] 39.6 mm[Hg] Low 41-51 [facility] Venous blood partial pressur e of oxygen measurementOrdered By: Steven Lowery on 11-11-2024 Oxygen (BldV) [Partial pressure] 40 mm[Hg] 25-40 [facility] White blood cell (WBC) count Ordered By: Lourdes Metz on 11-11-2024 WBC (Bld) [#/Vol] 16.6 10*3/uL High 4.4-11.0 [facility] pH (BldV)Ordered By: Steven Rasmussen on 11-11-2024 Venous Blood pH 7.44 High 7.32-7.42 [facility] 12 Lead EKGon 10-19-2024 12 Lead EKG [facility] Cardiovascular Services [address] [place] [address] 12 Lead EKG 10/19/24 0029 MR#: [id number] Acct: [id number] Name: UNA COSBY Rep #: [id number] : 1995 29 From: Taylor Man MD [...] ECG Confirmed by MEGAN MIRELES, NIKKI ([id number]), video effects editor COREY MICHAEL ([id number]) on 10/23/2024 10:53:38 AM Referred By: Confirmed By: NIKKI MAN MD 10/23/24 1053 Date Taylor Man MD CC: Dr. Keisha Handy, DO; No Primary Care Physician Signed Normal [facility] Absolute lymphocyte countOrd ered By: Keisha Handy on 10-19-2024 Lymphocytes Auto (Unsp spec) [#/Vol] 3.70 10*3/uL 0.83-4.51 [facility] Absolute neutrophil countOrd ered By: Keisha Handy on 10-19-2024 Neutrophils (Bld) [#/Vol] 8.5 10*3/uL High 2.0-7.7 [facility] Anion gap in Serum or Plasma Ordered By: Keisha Handy on 10-19-2024 Anion gap [Moles/Vol] 17 mmol/L High 5-15 [facility] Comment on above: Previous reported re sult: 14 Edited by: LUCERO on 10/19/24:0209 AMENDED REPORT 10/19/24208 GAP previously reported as: 14 Automated lymphocyte count a s percentage of total leukocytesOrdered By: Keisha Handy on 10-19-2024 Lymphocytes/100 WBC Auto (Unsp spec) 27.7 % 19-41 [facility] BUN/creatinine ratioOrdered By: Keisha Handy on 10-19-2024 Urea nitrogen/Creatinine [Mass ratio] 26.8 mg/mg High 10-20 [facility] Comment on above: Previous reported re sult: 25.4 RATIOEdited by: LUCERO on 10/19/24:0209 AMENDED REPORT 10/19/24208 BUN/CRE previously reported as: 25.4 H RATIO Base excess Calc (BldV) [Mol es/Vol]Ordered By: Keisha Handy on 10-19-2024 Venous Blood Base Excess -2 mmol/L Low -1.0-3.5 [facility] Basic Metabolic Profile (BMP )on 10-19-2024 Calcium [Mass/Vol] 8.9 mg/dL Normal 7.6-11.0 [facility] Comment on above: Performed By: #### L 500.2500, L100.0100 #### [facility] [address] [place], [place], [address] GFR/1.73 sq M.predicted among non-blacks MDRD (S/P/Bld) [Vol rate/Area] 134 mL/min/{1.73_m2} Normal >60 [facility] Comment on above: Result Comment: mL/m in/1.73m2 CKD-EPI Creatinine Equation (2020) Performed By: #### L 500.2500, L100.0100 #### [facility] [address] [place], [address] Basophil percentageOrdered B y: Keisha Handy on 10-19-2024 Basophils/100 WBC (Bld) 0.7 % 0-1 [facility] Bedside Glucoseon 10-19-2024 FINGERSTICK GLU 312 mg/dL High 74-106 [facility] Comment on above: Result Comment: TEJAL MATTA OF PATIENT CARE PER NURSING PROTOCOL Performed By: #### L 500.2500, L100.0100 #### [facility] [address] [place], [address] Bilirubin Test strip Ql (U)O rdered By: Keisha Handy on 10-19-2024 Bilirubin Ql (U) Negative Negative [facility] CBC W/Diff, Automatedon 10-07 Absolute Lymph 3.70 X10 3/uL Normal 0.83-4.51 [facility] Comment on above: Performed By: #### L 500.2500, L100.0100 #### [facility] [address] [place], [address] Absolute Neut 8.5 X10 3/uL High 2.0-7.7 [facility] Comment on above: Performed By: #### L 500.2500, L100.0100 #### [facility] [address] [place], [address] Basophils/100 WBC (Bld) 0.7 % Normal 0-1 [facility] Comment on above: Performed By: #### L 500.2500, L100.0100 #### [facility] [address] [place], [address] Eosinophils/100 WBC (Bld) 1.5 % Normal 0-5 [facility] Comment on above: Performed By: #### L 500.2500, L100.0100 #### [facility] [address] [place], [address] Erythrocyte distribution width (RBC) [Ratio] 16.5 % High 11.6-14.6 [facility] Comment on above: Performed By: #### L 500.2500, L100.0100 #### [facility] [address] [place], [address] Hematocrit (Bld) [Volume fraction] 43.5 % Normal 40-54 [facility] Comment on above: Performed By: #### L 500.2500, L100.0100 #### [facility] [address] [place], [address] Hemoglobin (Bld) [Mass/Vol] 13.4 g/dL Normal 13.0-16.5 [facility] Comment on above: Performed By: #### L 500.2500, L100.0100 #### [facility] [address] [place], [address] IG% 0.400 Normal 0.0-0.9 [facility] Comment on above: Result Comment: IG% - Immature Granulocytes (promyelocytes, myelocytes and metamyelocytes) > 1% indicates that a LEFT SHIFT is Present. Performed By: #### L 500.2500, L100.0100 #### [facility] [address] [place], [address] Lymphocytes/100 WBC (Bld) 27.7 % Normal 19-41 [facility] Comment on above: Performed By: #### L 500.2500, L100.0100 #### [facility] [address] [place], [address] MCH (RBC) [Entitic mass] 23.2 pg Low 27.0-32.0 [facility] Comment on above: Performed By: #### L 500.2500, L100.0100 #### [facility] [address] [place], [address] MCHC (RBC) [Mass/Vol] 30.8 g/dL Low 32-36 [facility] Comment on above: Performed By: #### L 500.2500, L100.0100 #### [facility] [address] [place], [address] MCV (RBC) [Entitic vol] 75.3 fL Low 80-94 [facility] Comment on above: Performed By: #### L 500.2500, L100.0100 #### [facility] [address] [place], [address] Monocytes/100 WBC (Bld) 6.2 % Normal 0-10 [facility] Comment on above: Performed By: #### L 500.2500, L100.0100 #### [facility] [address] [place], [address] Neutrophils/100 WBC (Bld) 63.5 % Normal 47-70 [facility] Comment on above: Performed By: #### L 500.2500, L100.0100 #### [facility] [address] [place], [address] Nucleated RBC (Bld) [#/Vol] 0 10*3/uL Normal 0-5 [facility] Comment on above: Performed By: #### L 500.2500, L100.0100 #### [facility] [address] [place], [address] Platelet mean volume (Bld) [Entitic vol] 10.3 fL Normal 6.2-12.0 [facility] Comment on above: Performed By: #### L 500.2500, L100.0100 #### [facility] [address] [place], [address] Platelets (Bld) [#/Vol] 346 10*3/uL Normal 150-450 [facility] Comment on above: Performed By: #### L 500.2500, L100.0100 #### [facility] [address] [place], [address] RBC (Bld) [#/Vol] 5.78 10*6/uL Normal 4.6-6.2 [facility] Comment on above: Performed By: #### L 500.2500, L100.0100 #### [facility] [address] [place], [address] RDW SD 43.9 fl Normal 35.1-43.9 [facility] Comment on above: Performed By: #### L 500.2500, L100.0100 #### [facility] [address] [place], [address] WBC (Bld) [#/Vol] 13.4 10*3/uL High 4.4-11.0 [facility] Comment on above: Performed By: #### L 500.2500, L100.0100 #### [facility] [address] [place], [address] CO2 (BldV) [Moles/Vol]Ordere d By: Keisha Handy on 10-19-2024 CO2 [Moles/Vol] 25 mmol/L 23-33 [facility] CO2 (BldV) [Partial pressure ]Ordered By: Keisha Handy on 10-19-2024 Bed Mix Venous Bld PCO2 at Pat Temp 41.4 mmHg 41-51 [facility] Carbon dioxide, total [Moles /volume] in Central venous bloodOrdered By: Keisha Handy on 10-19-2024 CO2 [Moles/Vol] 20.5 mmol/L Low 21.0-32.0 [facility] Comment on above: Previous reported re sult: 22.7 mmol/LEdited by: AUTOINS on 10/19/24:0209 AMENDED REPORT 10/19/24 020 CO2 previously reported as: 22.7 mmol/L Chest PA and Lateralon 10-19 Chest PA and Lateral [facility] Imaging Services [address] [place] [address] Chest PA and Lateral MR#: [id number] Acct: [id number] Name: UNA COSBY Rep #: [id number] : 1995 M 29 From: Tirso Massey MD PCP: Dr. Deangelo Noel MD Status: PRE ER Study: Chest PA and Lateral Date of Exam: 10/19/24 Exam# [id number] Ordering Dr: Keisha Handy DO PROCEDURE: CHEST PA AND LATERAL REASON FOR EXAM: CHEST PAIN TECHNIQUE: PA and lateral views of the chest. COMPARISON: 02/15/2023 FINDINGS: The lungs are clear. The cardiac and mediastinal contours are within limits. The visualized osseous structures appear within limits. RAD/Chest PA and Lateral IMPRESSION: No evidence of acute disease. Reading Location: [facility] CC: Dr. Keisha Handy DO; Dr. Deangelo Noel MD [employer] Mechanic: Signed Normal [facility] Chloride assayOrdered By: Javier Handy on 10-19-2024 Chloride [Moles/Vol] 92 mmol/L Low 98-108 [facility] Comment on above: Previous reported re sult: 93 mmol/LEdited by: AUTOINS on 10/19/24:0209 AMENDED REPORT 10/19/24 0209 CL previously reported as: 93 L mmol/L D-Dimer Quantitative (DVT/PE )on 10-19-2024 D-DIMER QUANT 0.28 FEU/ug/m Normal 0.27-0.49 [facility] Comment on above: Result Comment: NORM AL D-Dimer level (<0.50) indicates no DVT or PE. Performed By: #### L 500.2500, L100.0100 #### [facility] [address] [place], [address] D-dimer measurement for deep venous thrombosisOrdered By: Keisha Handy on 10-19-2024 D-Dimer Quantitative (PE/DVT) 0.28 FEU/ug/m 0.27-0.49 [facility] Comment on above: NORMAL D-Dimer level (<0.50) indicates no DVT or PE. Emergency Department Summary on 10-19-2024 Emergency Department Summary [facility] Medical Records Department [address] [place] [address] Emergency Department Summary 10/19/24 MR#: [id number] Acct: [id number] Name: UNA COSBY Rep #: [id number] : 1995 29 From: Keisha Handy DO [...] complaints or concerns reported at this time. [facility] Medical History Learning difficulty due to cognitive [...] NAD HEEN (more content not included)... Normal [facility] Eosinophil percentageOrdered By: Keisha Handy on 10-19-2024 Eosinophils/100 WBC (Bld) 1.5 % 0-5 [facility] Epithelial cells.squamous LM Ql (Urine sed)Ordered By: Keisha Handy on 10-19-2024 Epithelial cells.squamous LM.HPF (Urine sed) [#/Area] 0 /[HPF] 0-5 [facility] Erythrocyte distribution wid th ratioOrdered By: Keisha Handy on 10-19-2024 Erythrocyte distribution width (RBC) [Ratio] 16.5 % High 11.6-14.6 [facility] Erythrocyte distribution wid th standard deviationOrdered By: Keisha Handy on 10-19-2024 Erythrocyte distribution width (RBC) [Entitic vol] 43.9 fL 35.1-43.9 [facility] Erythrocyte distribution width (RBC) [Ratio] 43.9 fl 35.1-43.9 [facility] Estimation of creatinine riley aranceOrdered By: Keisha Handy on 10-19-2024 Estimated Creatinine Clearance Calc 163.42 ml/min 50-250 [facility] GFR/1.73 sq M.predicted baldev g non-blacks MDRD (S/P/Bld) [Vol rate/Area]Ordered By: Keisha Handy on 10-19-2024 Estimated GFR (MDRD) Non-Af Amer 134 >60 [facility] Comment on above: mL/min/1.73m2 CKD-EP I Creatinine Equation (2020) Glomerular filtration rate ( GFR) estimation/1.73 sq m using serum, plasma, or whole bOrdered By: Keisha Handy on 10-19-2024 GFR/1.73 sq M.predicted among non-blacks MDRD (S/P/Bld) [Vol rate/Area] 134 mL/min/{1.73_m2} >60 [facility] Comment on above: mL/min/1.73m2 CKD-EP I Creatinine Equation (2020) Glucose Ql (U)Ordered By: Javier Handy on 10-19-2024 Glucose (U) [Mass/Vol] 1000 mg/dL High Normal [facility] Glucose measurement at [facility] deOrdered By: Keisha Handy on 10-19-2024 Bedside Glucose (Misc Panel) 312 mg/dL High 74-106 [facility] Comment on above: MANAGEMENT OF PATIEN T CARE PER NURSING PROTOCOL Glucose [Mass/Vol] 312 mg/dL High 74-106 [facility] Comment on above: MANAGEMENT OF PATIEN T CARE PER NURSING PROTOCOL Hematocrit Auto (Bld) [Volum e fraction]Ordered By: Keisha Handy on 10-19-2024 Hematocrit (Bld) [Volume fraction] 43.5 % 40-54 [facility] Hemoglobin measurementOrdere d By: Keisha Handy on 10-19-2024 Hemoglobin (Bld) [Mass/Vol] 13.4 g/dL 13.0-16.5 [facility] Immature granulocytes/100 WB C Auto (Bld)Ordered By: Keisha Handy on 10-19-2024 Immature granulocytes/100 WBC (Bld) 0.400 % 0.0-0.9 [facility] Comment on above: IG% - Immature Granu locytes (promyelocytes, myelocytes and metamyelocytes) > 1% indicates that a LEFT SHIFT is Present. Ketones Test strip Ql (U)Ord ered By: Keisha Handy on 10-19-2024 Ketones Ql (U) 15 mg/dl High Negative [facility] L499.0042on 10-19-2024 Trop T High Sen 9 ng/L Normal <=22 [facility] Comment on above: Performed By: #### L 499.0042 ####[facility] [address] [place], [address] L501.4021on 10-19-2024 Trop T High Sen 8 ng/L Normal <=22 [facility] Comment on above: Result Comment: AMENDED REPORT 10/19/24200 Trop T High Sen previously reported as: 7 ng/L Performed By: #### L 500.2500, L100.0100 #### [facility] [address] [place], [address] L501.6901on 10-19-2024 BETA-HYDROXYBUT 0.6 mmol/L Normal 0.0-0.3 [facility] Comment on above: Performed By: #### L 501.6901 #### [facility] [address] [place], [address] Lymphocytes Auto (Unsp spec) [#/Vol]Ordered By: Keisha Handy on 10-19-2024 Lymphocytes (Bld) [#/Vol] 3.70 10*3/uL 0.83-4.51 [facility] Lymphocytes/100 WBC Auto (Un sp spec)Ordered By: Keisha Handy on 10-19-2024 Lymphocytes/100 WBC (Bld) 27.7 % 19-41 [facility] MCV (mean corpuscular volume ) determinationOrdered By: Keisha Handy on 10-19-2024 MCV (RBC) [Entitic vol] 75.3 fL Low 80-94 [facility] Mean corpuscular hemoglobin (MCH) determinationOrdered By: Keisha Handy on 10-19-2024 MCH (RBC) [Entitic mass] 23.2 pg Low 27.0-32.0 [facility] Mean corpuscular hemoglobin concentration (MCHC) determinationOrdered By: Keisha Handy on 10-19-2024 MCHC (RBC) [Mass/Vol] 30.8 g/dL Low 32-36 [facility] Mean platelet volume determi nationOrdered By: Keisha Handy on 10-19-2024 Platelet mean volume (Bld) [Entitic vol] 10.3 fL 6.2-12.0 [facility] Microscopic analysis of urin e for red blood cells (RBC)Ordered By: Keisha Handy on 10-19-2024 Microscopic analysis of urine for red blood cells (RBC) 0-5 SEEN /hpf 0-5 [facility] Urine RBC 0-5 SEEN /hpf 0-5 [facility] Monocyte percentageOrdered B y: Keisha Handy on 10-19-2024 Monocytes/100 WBC (Bld) 6.2 % 0-10 [facility] Mucus LM Ql (Urine sed)Order ed By: Keisha Handy on 10-19-2024 Mucus Ql (Urine sed) 0 SEEN /hpf [facility] Neutrophil percentageOrdered By: Keisha Handy on 10-19-2024 Neutrophils/100 WBC (Bld) 63.5 % 47-70 [facility] Nitrite Test strip Ql (U)Ord ered By: Keisha Handy on 10-19-2024 Nitrite Ql (U) Negative Negative [facility] No Panel InformationOrdered By: Keisha Handy on 10-19-2024 Blood Gas Sample Site Not entered [facility] Blood Gas Specimen Type JAIDEN [facility] Oxygen Delivery Device Room Air [facility] Beta-Hydroxybutyric Acid mmol/L 0.6 mmol/L 0.0-0.3 [facility] Troponin T High Sensitivity 8 ng/L <22 [facility] Comment on above: Previous reported re sult: 7 ng/LEdited by: AUTOINS on 10/19/24:0201 AMENDED REPORT 10/19/24 0201 Trop T High Sen previously reported as: 7 ng/L Nucleated red blood cell per centageOrdered By: Keisha Handy on 10-19-2024 Nucleated RBC/100 WBC (Bld) [Ratio] 0 % 0-5 [facility] Oxygen (BldV) [Partial press ure]Ordered By: Keisha Handy on 10-19-2024 Venous Blood Partial Pressure O2 32 mmHg 25-40 [facility] Platelet countOrdered By: Javier Handy on 10-19-2024 Platelets (Bld) [#/Vol] 346 10*3/uL 150-450 [facility] Potassium (Unsp spec) [Mass/ Vol]Ordered By: Keisha Handy on 10-19-2024 Potassium [Moles/Vol] 4.1 mmol/L 3.3-5.1 [facility] Potassium measurement (mass/ volume)Ordered By: Keisha Handy on 10-19-2024 Potassium (Unsp spec) [Mass/Vol] 4.1 mmol/L 3.3-5.1 [facility] Protein Test strip Ql (U)Ord ered By: Keisha Handy on 10-19-2024 Protein Ql (U) 100 mg/dl High Negative [facility] RBC Auto (Bld) [#/Vol]Ordere d By: Keisha Handy on 10-19-2024 RBC (Bld) [#/Vol] 5.78 10*6/uL 4.6-6.2 [facility] Serum creatinine measurement (mass/volume)Ordered By: Keisha Handy on 10-19-2024 Creatinine [Mass/Vol] 0.63 mg/dL Low 0.70-1.20 [facility] Serum glucose measurement (m ass/volume)Ordered By: Keisha Handy on 10-19-2024 Glucose [Mass/Vol] 458 mg/dL High 70-99 [facility] Comment on above: Critical Result(s) C alled at:0208 by: SERAFIN BELL TO RN SHUFF2 Results read back by same.Previous reported result: 457 mg/dLEdited by: AUTOINSandra on 10/19/24:0209 AMENDED REPORT 10/19/24 0209 GLU previously reported as: 457 *H mg/dL Serum or plasma calcium koby urement (mass/volume)Ordered By: Keisha Handy on 10-19-2024 Calcium [Mass/Vol] 8.9 mg/dL 7.6-11.0 [facility] Serum or plasma urea nitroge n measurement (mass/volume)Ordered By: Keisha Handy on 10-19-2024 Urea nitrogen [Mass/Vol] 17 mg/dL 4-19 [facility] Comment on above: Previous reported re sult: 16 mg/dLEdited by: JASSS on 10/19/24:0209 AMENDED REPORT 10/19/24208 BUN previously reported as: 16 mg/dL Sodium levelOrdered By: Roger Handy on 10-19-2024 Sodium [Moles/Vol] 129 mmol/L Low 133-145 [facility] Comment on above: Previous reported re sult: 130 mmol/LEdited by: AUTOINS on 10/19/24:0209 AMENDED REPORT 10/19/24208 NA previously reported as: 130 L mmol/L Squamous epithelial cells de tection in urine sediment by light microscopyOrdered By: Keisha Handy on 10-19-2024 Epithelial cells.squamous LM Ql (Urine sed) 0-5 SEEN /hpf 0-5 [facility] Troponin T.cardiac High sens itivity method [Mass/Vol]Ordered By: Keisha Handy on 10-19-2024 Troponin T High Sensitivity 2 Hour 9 ng/L <22 [facility] Troponin T.cardiac [Mass/vol ume] in Serum or Plasma by High sensitivity methodOrdered By: Keisha Handy on 10-19-2024 Troponin T.cardiac High sensitivity method [Mass/Vol] 9 ng/L <22 [facility] Urinalysis, Completeon 10-19 BACTERIA 1+ /hpf Normal None Seen [facility] Comment on above: Order Comment: MANN CTOR TO SPECIFY Performed By: #### L 500.2500, L100.0100 #### [facility] [address] [place], [address] EPI,SQUAMOUS 0-5 SEEN Normal 0-5 [facility] Comment on above: Order Comment: MANN CTOR TO SPECIFY Performed By: #### L 500.2500, L100.0100 #### [facility] [address] [place], [address] RBC 0-5 SEEN Normal 0-5 [facility] Comment on above: Order Comment: MANN CTOR TO SPECIFY Performed By: #### L 500.2500, L100.0100 #### [facility] [address] [place], [address] Mucus Ql (Urine sed) 0 SEEN Normal [facility] Comment on above: Order Comment: MANN CTOR TO SPECIFY Performed By: #### L 500.2500, L100.0100 #### [facility] [address] [place], [address] WBC 0 SEEN Normal 0-5 [facility] Comment on above: Order Comment: MANN CTOR TO SPECIFY Performed By: #### L 500.2500, L100.0100 #### [facility] [address] [place], [address] Urine blood detectionOrdered By: Keisha Handy on 10-19-2024 Urine Occult Blood 25 /ul High Negative [facility] Urine clarityOrdered By: Soraida Handy on 10-19-2024 Clarity (U) Clear Clear [facility] Urine color determinationOrd ered By: Keisha Handy on 10-19-2024 Color (U) Yellow Yellow [facility] Urine glucose detectionOrder ed By: Keisha Handy on 10-19-2024 Glucose Ql (U) 1000 mg/dl High Normal [facility] Urine leukocyte esterase det ection by dipstickOrdered By: Keisha Handy on 10-19-2024 Leukocyte esterase Test strip Ql (U) Negative Negative [facility] Urine pHOrdered By: Keisha santiago on 10-19-2024 pH (U) 6.0 [pH] 5.0 - 8.0 [facility] Urine sediment bacteria coun t by microscopy (number/high power field)Ordered By: Keisha Handy on 10-19-2024 Bacteria LM.HPF (Urine sed) [#/Area] 1 /[HPF] None Seen [facility] Urine specific gravity measu rementOrdered By: Keisha Handy on 10-19-2024 Specific gravity (U) [Rel density] 1.010 1.002-1.03 0 [facility] Urine urobilinogen measureme ntOrdered By: Keisha Handy on 10-19-2024 Urobilinogen Ql (U) Normal mg/dl Normal [facility] Urobilinogen Ql (U)Ordered B y: Keisha Handy on 10-19-2024 Urine Urobilinogen Normal mg/dl Normal [facility] Venous Blood Gason Blood Gas Type JAIDEN Normal [facility] Comment on above: Performed By: #### L 500.2500, L100.0100 #### [facility] [address] [place], [address] CO2 [Moles/Vol] 25 mmol/L Normal 23-33 [facility] Comment on above: Performed By: #### L 500.2500, L100.0100 #### [facility] [address] [place], [address] HCO3 (Bld) [Moles/Vol] 23 mmol/L Normal 22-26 [facility] Comment on above: Performed By: #### L 500.2500, L100.0100 #### [facility] [address] [place], [address] O2 Delivery Dev Room Air Normal [facility] Comment on above: Performed By: #### L 500.2500, L100.0100 #### [facility] [address] [place], [address] SITE Not entered Normal [facility] Comment on above: Performed By: #### L 500.2500, L100.0100 #### [facility] [address] [place], [address] VBG BE -2 mmol/L Low -1.0-3.5 [facility] Comment on above: Performed By: #### L 500.2500, L100.0100 #### [facility] [address] [place], [address] VBG pCO2 41.4 mmHg Normal 41-51 [facility] Comment on above: Performed By: #### L 500.2500, L100.0100 #### [facility] [address] [place], [address] VBG pH 7.36 Normal 7.32-7.42 [facility] Comment on above: Performed By: #### L 500.2500, L100.0100 #### [facility] [address] [place], [address] VBG PO2 32 mmHg Normal 25-40 [facility] Comment on above: Performed By: #### L 500.2500, L100.0100 #### [facility] [address] [place], [address] VBG SO2 59 Normal 50-70 [facility] Comment on above: Performed By: #### L 500.2500, L100.0100 #### [facility] [address] [place], [address] Venous blood base excess yaya surementOrdered By: Keisha Handy on 10-19-2024 Base excess Calc (BldV) [Moles/Vol] -2 mmol/L Low -1.0-3.5 [facility] Venous blood bicarbonate yaya surementOrdered By: Keisha Handy on 10-19-2024 HCO3 (Bld) [Moles/Vol] 23 mmol/L 22-26 [facility] Venous blood oxygen saturati on measurementOrdered By: Keisha Handy on 10-19-2024 Oxygen saturation in Blood 59 % 50-70 [facility] Venous blood pH measurementO rdered By: Keisha Handy on 10-19-2024 pH (BldV) 7.36 [pH] 7.32-7.42 [facility] Venous blood partial pressur e of carbon dioxide measurementOrdered By: Keisha Handy on 10-19-2024 CO2 (BldV) [Partial pressure] 41.4 mm[Hg] 41-51 [facility] Venous blood partial pressur e of oxygen measurementOrdered By: Keisha Handy on 10-19-2024 Oxygen (BldV) [Partial pressure] 32 mm[Hg] 25-40 [facility] White blood cell (WBC) count Ordered By: Keisha Handy on 10-19-2024 WBC (Bld) [#/Vol] 13.4 10*3/uL High 4.4-11.0 [facility] White blood cell countOrdere d By: Keisha Handy on 10-19-2024 Urine WBC 0 SEEN /hpf 0-5 [facility] White blood cell count 0 SEEN /hpf 0-5 [facility] pH (BldV)Ordered By: Keisha Handy on 10-19-2024 Venous Blood pH 7.36 7.32-7.42 [facility] CBC W Auto Differential pane l (Bld)on 10-10-2024 Basophils (Bld) [#/Vol] 0.06 10*3/uL Normal <0.11 [facility] Comment on above: Order Comment: Speci men Type: BLOOD SPECIMEN Ordering Facility: [facility] Address: [address] [place] [address] Performed By: #### 5 7021-8 #### [facility] CLIA [id number] [address] [place] [address] [place] Basophils/100 WBC (Bld) 0.5 % Normal C [facility] Comment on above: Order Comment: Speci men Type: BLOOD SPECIMEN Ordering Facility: [facility] Address: [address] [place] [address] Performed By: #### 5 7021-8 #### [facility] CLIA [id number] [address] [place] [address] [place] Differential cell count method Nom (Bld) Auto Normal [facility] Comment on above: Order Comment: Speci men Type: BLOOD SPECIMEN Ordering Facility: [facility] Address: [address] [place] [address] Performed By: #### 5 7021-8 #### [facility] CLIA [id number] [address] [place] [address] [place] Eosinophils (Bld) [#/Vol] 0.20 10*3/uL Normal <0.46 [facility] Comment on above: Order Comment: Speci men Type: BLOOD SPECIMEN Ordering Facility: [facility] Address: [address] [place] [address] Performed By: #### 5 7021-8 #### [facility] CLIA [id number] [address] [place] [address] [place] Eosinophils/100 WBC (Bld) 1.6 % Normal [facility] Comment on above: Order Comment: Speci men Type: BLOOD SPECIMEN Ordering Facility: [facility] Address: [address] [place] [address] Performed By: #### 5 7021-8 #### [facility] CLIA [id number] [address] [place] [address] [place] Erythrocyte distribution width (RBC) [Ratio] 16.2 % High 11.5-15.0 [facility] Comment on above: Order Comment: Speci men Type: BLOOD SPECIMEN Ordering Facility: [facility] Address: [address] [place] [address] Performed By: #### 5 7021-8 #### [id number] [address] [place] [address] [place] Hematocrit (Bld) [Volume fraction] 42.3 % Normal 39.0-51.0 [facility] Comment on above: Order Comment: Speci men Type: BLOOD SPECIMEN Ordering Facility: [facility] Address: [address] [place] [address] Performed By: #### 5 7021-8 #### [facility] CLIA [id number] [address] [place] [address] [place] Hemoglobin (Bld) [Mass/Vol] 13.0 g/dL Normal 13.0-17.0 [facility] Comment on above: Order Comment: Speci men Type: BLOOD SPECIMEN Ordering Facility: [facility] Address: [address] [place] [address] Performed By: #### 5 7021-8 #### [facility] CLIA [id number] [address] [place] [address] [place] Immature granulocytes (Bld) [#/Vol] 0.04 10*3/uL Normal <0.10 [facility] Comment on above: Order Comment: Speci men Type: BLOOD SPECIMEN Ordering Facility: [facility] Address: [address] [place] [address] Performed By: #### 5 7021-8 #### [facility] CLIA [id number] [address] [place] [address] [place] Immature granulocytes/100 WBC (Bld) 0.3 % Normal [facility] Comment on above: Order Comment: Speci men Type: BLOOD SPECIMEN Ordering Facility: [facility] Address: [address] [place] [address] Performed By: #### 5 7021-8 #### [facility] [id number] [address] [place] [address] [place] Lymphocytes (Bld) [#/Vol] 4.12 10*3/uL High 1.00-4.00 [facility] Comment on above: Order Comment: Speci men Type: BLOOD SPECIMEN Ordering Facility: [facility] Address: [address] [place] [address] Performed By: #### 5 7021-8 #### [facility] CLIA [id number] [address] [place] [address] [place] Lymphocytes/100 WBC (Bld) 33.4 % Normal [facility] Comment on above: Order Comment: Speci men Type: BLOOD SPECIMEN Ordering Facility: [facility] Address: [address] [place] [address] Performed By: #### 5 7021-8 #### [facility] CLIA [id number] [address] [place] [address] [place] MCH (RBC) [Entitic mass] 23.2 pg Low 26.0-34.0 [facility] Comment on above: Order Comment: Speci men Type: BLOOD SPECIMEN Ordering Facility: [facility] Address: [address] [place] [address] Performed By: #### 5 7021-8 #### [id number] [address] [place] [address] [place] MCHC (RBC) [Mass/Vol] 30.7 g/dL Normal 30.5-36.0 [facility] Comment on above: Order Comment: Speci men Type: BLOOD SPECIMEN Ordering Facility: [facility] Address: [address] [place] [address] Performed By: #### 5 7021-8 #### [facility] [id number] [address] [place] [address] [place] MCV (RBC) [Entitic vol] 75.4 fL Low 80.0-100.0 C [facility] Comment on above: Order Comment: Speci men Type: BLOOD SPECIMEN Ordering Facility: [facility] Address: [address] [place] [address] Performed By: #### 5 7021-8 #### [facility] [id number] [address] [place] [address] [place] Monocytes (Bld) [#/Vol] 0.97 10*3/uL High <0.87 [facility] Comment on above: Order Comment: Speci men Type: BLOOD SPECIMEN Ordering Facility: [facility] Address: [address] [place] [address] Performed By: #### 5 7021-8 #### [facility] CL[facility] [id number] [address] [place] [address] [place] Monocytes/100 WBC (Bld) 7.9 % Normal [facility] Comment on above: Order Comment: Speci men Type: BLOOD SPECIMEN Ordering Facility: [facility] Address: [address] [place] [address] Performed By: #### 5 7021-8 #### [facility] CLIA [id number] [address] [place] [address] [place] Neutrophils (Bld) [#/Vol] 6.94 10*3/uL Normal 1.45-7.50 [facility] Comment on above: Order Comment: Speci men Type: BLOOD SPECIMEN Ordering Facility: [facility] Address: [address] [place] [address] Performed By: #### 5 7021-8 #### [facility] CLIA [id number] [address] [place] [address] [place] Neutrophils/100 WBC (Bld) 56.3 % Normal [facility] Comment on above: Order Comment: Speci men Type: BLOOD SPECIMEN Ordering Facility: [facility] Address: [address] [place] [address] Performed By: #### 5 7021-8 #### [facility] CLIA [id number] [address] [place] [address] [place] Nucleated RBC (Bld) [#/Vol] 10*3/uL Normal <0.01 [facility] Comment on above: Order Comment: Speci men Type: BLOOD SPECIMEN Ordering Facility: [facility] Address: [address] [place] [address] Performed By: #### 5 7021-8 #### [facility] CLIA [id number] [address] [place] [address] [place] Nucleated RBC/100 WBC (Bld) [Ratio] 0.0 /100 WBC Normal [facility] Comment on above: Order Comment: Speci men Type: BLOOD SPECIMEN Ordering Facility: [facility] Address: [address] [place] [address] Performed By: #### 5 7021-8 #### [facility] CLIA [id number] [address] [place] [address] [place] Platelet mean volume (Bld) [Entitic vol] 11.3 fL Normal 9.0-12.7 [facility] Comment on above: Order Comment: Speci men Type: BLOOD SPECIMEN Ordering Facility: [facility] Address: [address] [place] [address] Performed By: #### 5 7021-8 #### [facility] CLIA [id number] [address] [place] [address] [place] Platelets (Bld) [#/Vol] 403 10*3/uL High 150-400 [facility] Comment on above: Order Comment: Speci men Type: BLOOD SPECIMEN Ordering Facility: [facility] Address: [address] [place] [address] Performed By: #### 5 7021-8 #### [facility] CLIA [id number] [address] [place] [address] [place] RBC (Bld) [#/Vol] 5.61 10*6/uL Normal 4.20-6.00 [facility] Comment on above: Order Comment: Speci men Type: BLOOD SPECIMEN Ordering Facility: [facility] Address: [address] [place] [address] Performed By: #### 5 7021-8 #### [facility] CLIA [id number] [address] [place] [address] [place] WBC (Bld) [#/Vol] 12.33 10*3/uL High 3.70-11.00 [facility] Comment on above: Order Comment: Speci men Type: BLOOD SPECIMEN Ordering Facility: [facility] Address: [address] [facility], [place] [address] Performed By: #### 5 7021-8 #### [facility] CLIA [id number] [address] [place] [address] [place] Comprehensive metabolic 2000 panelon 10-10-2024 Albumin [Mass/Vol] 3.8 g/dL Low 3.9-4.9 [facility] Comment on above: Order Comment: Speci men Type: BLOOD SPECIMEN Ordering Facility: [facility] Address: [address] [place] [address], [place] [address] Performed By: #### 2 4323-8, 3016-3 #### [facility] CLIA [id number] [address] [place] #### [address]-5 #### [facility] CLIA [id number] [address] [place] [address] [place] [facility] CLIA [id number] [address] [place] [address] [place] ALP [Catalytic activity/Vol] 175 U/L High 38-113 [facility] Comment on above: Order Comment: Speci men Type: BLOOD SPECIMEN Ordering Facility: [facility] Address: [facility] [facility], [place] [address] Performed By: #### 2 4323-8, 6-3 #### [facility] CLIA [id number] [address] [place] #### 46285-3 #### [facility] CLIA [id number] [address] [place] [facility] CLIA [id number] [address] [place] [address] [place] ALT With P-5'-P [Catalytic activity/Vol] 22 U/L Normal 10-54 [facility] Comment on above: Order Comment: Speci men Type: BLOOD SPECIMEN Ordering Facility: [facility] Address: [address] [facility], [place] [address] Performed By: #### 2 4323-8, 6-3 #### [facility] CLIA [id number] [address] [place] #### 45329-7 #### [facility] CLIA [id number] [address] [place] [facility] CLIA [id number] [address] [place] Anion gap [Moles/Vol] 16 mmol/L High 8-15 [facility] Comment on above: Order Comment: Speci men Type: BLOOD SPECIMEN Ordering Facility: [facility] Address: [address] [place] [address], [place] [address] Performed By: #### 2 4328, 3015-3 #### [facility] CLIA [id number] [address] [place] #### 49697-8 #### [facility] CLIA [id number] [address] STATES OF [facility] CLIA [id number] [address] [place] [address] [place] AST With P-5'-P [Catalytic activity/Vol] 16 U/L Normal 14-40 [facility] Comment on above: Order Comment: Speci men Type: BLOOD SPECIMEN Ordering Facility: [facility] Address: [address] [place] [address], [place] [address] Performed By: #### 2 4323-8, 6-3 #### [facility] CLIA [id number] [address] OF [place] #### 30590-7 #### [facility] CLIA [id number] [address] [place] [facility] CLIA [id number] [address] [place] Bilirubin [Mass/Vol] 0.2 mg/dL Normal 0.2-1.3 [facility] Comment on above: Order Comment: Speci men Type: BLOOD SPECIMEN Ordering Facility: [facility] Address: [address] [place] [address], [place] [address] Performed By: #### 2 4323-8, 3016-3 #### [facility] CLIA [id number] [address] #### 32494-3 #### [facility] CLIA [id number] [address] STATES OF [facility] CLIA [id number] [address] [place] [address] [place] Calcium [Mass/Vol] 8.9 mg/dL Normal 8.5-10.2 [facility] Comment on above: Order Comment: Speci men Type: BLOOD SPECIMEN Ordering Facility: [facility] Address: [address] [place] [address], [place] [address] Performed By: #### 2 4328, 6-3 #### [facility] CLIA [id number] [address] #### 18310-1 #### [facility] CLIA [id number] [address] OF [facility] CLIA [id number] [address] [place] [address] [facility] Chloride [Moles/Vol] 88 mmol/L Low 98-107 [facility] Comment on above: Order Comment: Speci men Type: BLOOD SPECIMEN Ordering Facility: [facility] Address: [address] [place] [address], [place] [address] Performed By: #### 2 4323-8, 6-3 #### [facility] CLIA [id number] [address] [place] #### 61894-1 #### [facility] CLIA [id number] 1 [place], [place] [address] [place] [address] CLIA [id number] [address] [place] [address] [place] CO2 [Moles/Vol] 23 mmol/L Normal 22-30 [facility] Comment on above: Order Comment: Speci men Type: BLOOD SPECIMEN Ordering Facility: [facility] Address: [address] [place] [address], [place] [address] Performed By: #### 2 4323-8, 3016-3 #### [facility] CLIA [id number] [address] [place] #### 39665-6 #### [facility] CLIA [id number] 1 [place] [address] [place] [facility] CLIA [id number] [address] [place] [address] [place] Creatinine [Mass/Vol] 0.64 mg/dL Low 0.73-1.22 [facility] Comment on above: Order Comment: Speci men Type: BLOOD SPECIMEN Ordering Facility: [facility] Address: [address] [place] [address], [place] [address] Performed By: #### 2 4323-8, 3016-3 #### [facility] CLIA [id number] [address] [facility] #### 20293-9 #### [facility] CLIA [id number] [address] STATES OF [facility] CLIA [id number] [address] [place] [address] Creatinine and Glomerular filtration rate.predicted panel (S/P/Bld) 133 mL/min/1.73m??? Normal >=60 [facility] Comment on above: Order Comment: Speci men Type: BLOOD SPECIMEN Ordering Facility: [facility] Address: [address] [place] [address], [place] [address] Result Comment: Tara mated Glomerular Filtration Rate [...] actual GFR. Performed By: #### 2 4323-8, 6-3 #### [facility] CLIA [id number] [address] #### 28340-0 #### [facility] CLIA [id number] [address] CLIA [id number] [address] Glucose [Mass/Vol] 659 mg/dL High 74-99 [facility] Comment on above: Order Comment: Speci men Type: BLOOD SPECIMEN Ordering Facility: Nasreen Le[facility] Address: [address] [facility], [place] [address] Result Comment: The [place] Diabetes Association (ADA) provides guidance for cutoff [...] Standards of Medical Care in Diabetes 2016, [place] [employer] Association. Diabetes Care. 2016.39(Suppl 1). Performed By: #### 2 4323-8, 3015-3 #### [facility] CLIA [id number] [address] #### 35947-4 #### [facility] CLIA [id number] [address] [facility] CLIA [id number] 721 [place] [address] [place] Potassium [Moles/Vol] 4.5 mmol/L Normal 3.7-5.1 [facility] Comment on above: Order Comment: Speci men Type: BLOOD SPECIMEN Ordering Facility: [facility] Address: [address] [facility], [place] [address] Performed By: #### 2 4323-8, 3016-3 #### [facility] CLIA [id number] [address] [place] #### 65028-5 #### [facility] CLIA [id number] 1 [place] [address] [place] [facility] CLIA [id number] 721 [place] [address] [place] Protein [Mass/Vol] 6.9 g/dL Normal 6.3-8.0 [facility] Comment on above: Order Comment: Speci men Type: BLOOD SPECIMEN Ordering Facility: [facility] Address: [address] [facility], [place] [address] Performed By: #### 2 4323-8, 3016-3 #### [facility] CLIA [id number] [address] [place] #### 10595-2 #### [facility] CLIA [id number] 1 [place] [address] [place] [facility] CLIA [id number] 721 [place] [address] [place] Sodium [Moles/Vol] 127 mmol/L Low 136-144 [facility] Comment on above: Order Comment: Speci men Type: BLOOD SPECIMEN Ordering Facility: [facility] Address: [address] [facility], [place] [address] Performed By: #### 2 4323-8, 6-3 #### [facility] CLIA [id number] [address] [place] #### 69116-5 #### [facility] CLIA [id number] 1 [place] [address] [place] [facility] CLIA [id number] [address] [place] Urea nitrogen [Mass/Vol] 17 mg/dL Normal 9-24 [facility] Comment on above: Order Comment: Speci men Type: BLOOD SPECIMEN Ordering Facility: [facility] Address: [address] [place] [address], [place] [address] Performed By: #### 2 4323-8, 3016-3 #### [facility] CLIA [id number] [address] OF [place] #### 41630-3 #### [facility] CLIA [id number] 1 [place] [address] [place] [facility] CLIA [id number] [address] [place] [address] [place] Lipid 1996 panelon 5 Cholesterol [Mass/Vol] 177 mg/dL Normal <200 [facility] Comment on above: Order Comment: Speci men Type: BLOOD SPECIMEN Ordering Facility: [facility] Address: [address] [facility], [place] [address] Result Comment: <200 mg/dL, Desirable 200-239 mg/dL, Borderline high >239 mg/dL, High Performed By: #### 2 4323-8, 3016-3 #### [facility] CLIA [id number] [address] [place] #### 06161-2 #### [facility] CLIA [id number] 1 [place] [address] [place] [facility] CLIA [id number] [address] [place] [address] [place] Cholesterol in HDL [Mass/Vol] 46 mg/dL Normal >39 [facility] Comment on above: Order Comment: Noemi adrian Type: BLOOD SPECIMEN Ordering Facility: [facility] Address: [address] [place] [address], [place] [address] Result Comment: 40-5 9 mg/dL, Acceptable >59 mg/dL, High: Negative risk factor for coronary heart disease <40 mg/dL, Low: Positive risk factor for coronary heart disease Performed By: #### 2 4323-8, 3016-3 #### [facility] CLIA [id number] [address] #### 45909-2 #### [facility] CLIA [id number] [address] CLIA [id number] [address] [place] [address] Cholesterol in LDL [Mass/Vol] 86 mg/dL Normal <100 [facility] Comment on above: Order Comment: Noemi adrian Type: BLOOD SPECIMEN Ordering Facility: [facility] Address: [address] [place] [address], [place] [address] Result Comment: <100 mg/dL, Optimal 100-129 mg/dL, Near optimal/above optimal 130-159 mg/dL, Borderline high 160-189 mg/dL, High >189 mg/dL, Very high Secondary prevention optimal LDL Cholesterol levels are recommended to be < 70 mg/dL Performed By: #### 2 4323-8, 3016-3 #### [facility] CLIA [id number] [address] #### 65395-6 #### [facility] CLIA [id number] [address] CLIA [id number] [address] [place] [address] Cholesterol in LDL/Cholesterol in HDL [Mass ratio] 1.87 {ratio} Normal <2.54 [facility] Comment on above: Order Comment: Taiwoi men Type: BLOOD SPECIMEN Ordering Facility: [facility] Address: [address] [place] [address] Result Comment: Philomena kirkland: 1. National Cholesterol Education Program ATP III Guideline At-A-Glance Quick Desk Reference: National Heart, Lung, and Blood Badger. National Institutes of Health. 2001: NIH Publication No. 01-3305. 2. An International Atherosclerosis Society position paper: global recommendations for the management of dyslipidemia: executive summary, Atherosclerosis. 2014: 232(2):410-413. Performed By: #### 2 4323-8, 6-3 #### [facility] CLIA [id number] [address] #### 55730-0 #### [facility] CLIA [id number] [address] CLIA [id number] [address] [place] [address] [place] Cholesterol in VLDL [Mass/Vol] 45 mg/dL High <30 [facility] Comment on above: Order Comment: Speci men Type: BLOOD SPECIMEN Ordering Facility: [facility] Address: [address] [place] [address] Performed By: #### 2 4323-8, 6-3 #### [facility] CLIA [id number] [address] #### 04212-9 #### [facility] CLIA [id number] [address] CLIA [id number] [address] [place] [address] [place] Cholesterol non HDL [Mass/Vol] 131 mg/dL High <130 [facility] Comment on above: Order Comment: Speci men Type: BLOOD SPECIMEN Ordering Facility: [facility] Address: [address] [place] [address] Result Comment: <130 mg/dL, Optimal 130-159 mg/dL, Near optimal/above optimal 160-189 mg/dL, Borderline high 190-219 mg/dL, High >219 mg/dL, Very high Secondary prevention optimal non HDL Cholesterol levels are recommended to be <100 mg/dL Performed By: #### 2 4323-8, 6-3 #### [facility] CLIA [id number] [address] #### 69053-0 #### [facility] CLIA [id number] [address] CLIA [id number] [address] [place] [address] Cholesterol.total/Shanon sterol in HDL [Mass ratio] 3.85 {ratio} Normal <5.10 [facility] Comment on above: Order Comment: Speci men Type: BLOOD SPECIMEN Ordering Facility: [facility] Address: [address] [place] [address] Performed By: #### 2 3-8, 3015-3 #### [facility] CLIA [id number] [address] #### 05160-0 #### [facility] CLIA [id number] [address] CLIA [id number] [place] [address] FASTING TIME 12 hrs Normal [facility] Comment on above: Order Comment: Speci men Type: BLOOD SPECIMEN Ordering Facility: [facility] Address: [address] [place] [address] Performed By: #### 2 3-8, 6-3 #### [facility] CLIA [id number] [address] #### 60855-6 #### [facility] CLIA [id number] [address] OF [facility] CLIA [id number] [address] [place] [address] OF [place] Triglyceride [Mass/Vol] 226 mg/dL High <150 [facility] Comment on above: Order Comment: Speci men Type: BLOOD SPECIMEN Ordering Facility: [facility] Address: [address] [facility], [place] [address] Result Comment: <150 mg/dL, Normal 150-199 mg/dL, Borderline high 200-499 mg/dL, High >499 mg/dL, Very high Performed By: #### 2 4323-8, 3016-3 #### [facility] CLIA [id number] [address] #### 65946-7 #### [facility] CLIA [id number] [address] CLIA [id number] [address] [place] TSH SerPl-aCncon 10-10-2024 TSH Qn 1.060 m[IU]/L Normal 0.270-4.20 0 [facility] Comment on above: Order Comment: Speci men Type: BLOOD SPECIMEN Ordering Facility: [facility] Address: [address] [facility], [place] [address] Performed By: #### 2 4323-8, 3016-3 #### [facility] CLIA [id number] [address] #### 82228-5 #### [facility] CLIA [id number] [address] CLIA [id number] [address] [place] [address] Absolute lymphocyte countOrd ered By: Dr. Zarate on 01-03-2023 Lymphocytes Auto (Unsp spec) [#/Vol] 5.11 10*3/uL 0.83-4.51 [facility] Basophil percentageOrdered B y: Dr. Zarate on 01-03-2023 Basophils/100 WBC (Bld) 0.6 % 0-1 [facility] Chloride [Moles/Vol] 97 mmol/L 98-107 [facility] Eosinophils/100 WBC (Bld) 3.2 % 0-5 [facility] Glucose [Mass/Vol] 504 mg/dL 74-106 [facility] Comment on above: Glucose result great er than or equal to 200 mg/dLsuggests DIABETES MELLITUS per A.D.A. criteria. Neutrophils (Bld) [#/Vol] 5.5 10*3/uL 2.0-7.7 [facility] Neutrophils/100 WBC (Bld) 45.8 % 47-70 [facility] Potassium [Moles/Vol] 4.7 mmol/L 3.5-5.1 [facility] Sodium [Moles/Vol] 132 mmol/L 136-145 [facility] WBC (Bld) [#/Vol] 12.1 10*3/uL 4.4-11.0 [facility] Blood erythrocytes count (nu mber/volume)Ordered By: Dr. Zarate on 01-03-2023 RBC (Bld) [#/Vol] 4.87 10*6/uL 4.6-6.2 [facility] Blood hemoglobin measurement (mass/volume)Ordered By: Dr. Zarate on 01-03-2023 Hemoglobin (Bld) [Mass/Vol] 12.7 g/dL 13.0-16.5 [facility] Blood lymphocytes/100 leukoc ytesOrdered By: Dr. Zarate on 01-03-2023 Lymphocytes/100 WBC (Bld) 42.3 % 19-41 [facility] Blood manual differential co mment interpretation (narrative result)Ordered By: Dr. Zarate on 01-03-2023 Manual differential comment Gigi (Bld) [Interp] SCANNED [facility] Comment on above: LYMPHOCYTOSIS NOTED Blood monocytes/100 leukocyt esOrdered By: [address] Zarate on 01-03-2023 Monocytes/100 WBC (Bld) 7.8 % 0-10 [facility] Blood platelet mean volumeOr dered By: Dr. Zarate on 01-03-2023 Platelet mean volume (Bld) [Entitic vol] 10.6 fL 6.2-12.0 [facility] Determination of erythrocyte mean corpuscular volume (MCV)Ordered By: Dr. Zarate on 01-03-2023 MCV (RBC) [Entitic vol] 81.9 fL 80-94 [facility] Glucose Glucometer (BldC) [M ass/Vol]Ordered By: Dr. Zarate on 01-03-2023 Glucose [Mass/Vol] 383 mg/dL 74-106 [facility] Comment on above: MANAGEMENT OF PATIEN T CARE PER NURSING PROTOCOL Hematocrit Auto (Bld) [Volum e fraction]Ordered By: Dr. Zarate on 01-03-2023 Hematocrit (Bld) [Volume fraction] 39.9 % 40-54 [facility] - Chemistry and C hemistry - challengeOrdered By: Dr. Zarate on 01-03-2023 CO2 [Moles/Vol] 23.0 mmol/L 21.0-32.0 [facility] Urea nitrogen/Creatinine [Mass ratio] 17.2 mg/mg 10-20 [facility] - Hematology and Cell countsOrdered By: Dr. Zarate on 01-03-2023 Erythrocyte distribution width (RBC) [Entitic vol] 41.9 fL 35.1-43.9 [facility] Erythrocyte distribution width (RBC) [Ratio] 14.3 % 11.6-14.6 [facility] Immature granulocytes/100 WBC (Bld) 0.300 % 0.0-0.9 [facility] Comment on above: IG% - Immature Granu locytes (promyelocytes, myelocytes and metamyelocytes) > 1% indicates that a LEFT SHIFT is Present. MCH (RBC) [Entitic mass] 26.1 pg 27.0-32.0 [facility] Nucleated RBC/100 WBC (Bld) [Ratio] 0 % 0-5 [facility] MCHC Auto (RBC) [Mass/Vol]Or dered By: Dr. Zarate on 01-03-2023 MCHC (RBC) [Mass/Vol] 31.8 g/dL 32-36 [facility] No Panel InformationOrdered By: Dr. Zarate on 01-03-2023 Estimated Creatinine Clearance Calc 122.45 ml/min [facility] Estimated GFR (MDRD) Amer 136 mL/min >60 [facility] Comment on above: GFR Calc Estimated GFR (MDRD) Non-Af Amer 113 mL/min >60 [facility] Comment on above: Non- GFR Calc Troponin I High Sensitivity 4 pg/mL 3.0-78.0 [facility] Comment on above: Critical Result(s) C alled at: 23:19:17 01/03/2023 by: MICHAEL COUGHLIN RN (ED) Results read back by same. Please Note: New Test Units and Gender Specific Reference Ranges. For more information see Policy Stat Procedure [facility] High Sensitivity Troponin (TNIH) and attachments. Platelets bldOrdered By: Dr. Zarate on 01-03-2023 Platelets (Bld) [#/Vol] 357 10*3/uL 150-450 [facility] Serum or plasma calcium koby urement (mass/volume)Ordered By: Dr. Zarate on 01-03-2023 Calcium [Mass/Vol] 8.6 mg/dL 8.5-10.1 [facility] Serum or plasma creatinine m easurement (mass/volume)Ordered By: Dr. Zarate on 01-03-2023 Creatinine [Mass/Vol] 0.87 mg/dL 0.70-1.30 [facility] Comment on above: The validity of the calculated GFR & GFRAA in patients over 70 years has not been determined. Clinical correlation is essential. Serum or plasma urea nitroge n measurement (mass/volume)Ordered By: Dr. Zarate on 01-03-2023 Urea nitrogen [Mass/Vol] 15 mg/dL 7-18 [facility] Thin prep Papanicolaou smear with manual screeningOrdered By: Dr. Zarate on 01-03-2023 Thin prep Papanicolaou smear with manual screening 12 5-15 [facility] Absolute lymphocyte countOrd ered By: Dr. Lynn on 12-09-2022 Lymphocytes Auto (Unsp spec) [#/Vol] 4.06 10*3/uL 0.83-4.51 [facility] Basophil percentageOrdered B y: Dr. Lynn on 12-09-2022 Basophils/100 WBC (Bld) 0.6 % 0-1 [facility] Chloride [Moles/Vol] 96 mmol/L 98-107 [facility] Eosinophils/100 WBC (Bld) 1.9 % 0-5 [facility] Glucose [Mass/Vol] 396 mg/dL 74-106 [facility] Comment on above: Glucose result great er than or equal to 200 mg/dLsuggests DIABETES MELLITUS per A.D.A. criteria. Neutrophils (Bld) [#/Vol] 4.6 10*3/uL 2.0-7.7 [facility] Neutrophils/100 WBC (Bld) 47.9 % 47-70 [facility] Potassium [Moles/Vol] 5.0 mmol/L 3.5-5.1 [facility] Sodium [Moles/Vol] 133 mmol/L 136-145 [facility] WBC (Bld) [#/Vol] 9.6 10*3/uL 4.4-11.0 [facility] Blood erythrocytes count (nu mber/volume)Ordered By: Dr. Lynn on 12-09-2022 RBC (Bld) [#/Vol] 6.66 10*6/uL 4.6-6.2 [facility] Blood hemoglobin measurement (mass/volume)Ordered By: Dr. Lynn on 12-09-2022 Hemoglobin (Bld) [Mass/Vol] 17.0 g/dL 13.0-16.5 [facility] Blood lymphocytes/100 leukoc ytesOrdered By: Dr. Lynn on 12-09-2022 Lymphocytes/100 WBC (Bld) 42.1 % 19-41 [facility] Blood monocytes/100 leukocyt esOrdered By: Dr. Lynn on 12-09-2022 Monocytes/100 WBC (Bld) 7.3 % 0-10 [facility] Blood platelet mean volumeOr dered By: Dr. Lynn on 12-09-2022 Platelet mean volume (Bld) [Entitic vol] 10.8 fL 6.2-12.0 [facility] Determination of erythrocyte mean corpuscular volume (MCV)Ordered By: Dr. Lynn on 12-09-2022 MCV (RBC) [Entitic vol] 79.4 fL 80-94 [facility] HCO3 (BldA) [Moles/Vol]Order ed By: Dr. Lynn on 12-09-2022 HCO3 (Bld) [Moles/Vol] 21 mmol/L 22-26 [facility] Hematocrit Auto (Bld) [Volum e fraction]Ordered By: Dr. Lynn on 12-09-2022 Hematocrit (Bld) [Volume fraction] 52.9 % 40-54 [facility] - Chemistry and C hemistry - challengeOrdered By: Dr. Lynn on 12-09-2022 CO2 [Moles/Vol] 22 mmol/L 23-33 [facility] CO2 [Moles/Vol] 28.0 mmol/L 21.0-32.0 [facility] Natriuretic peptide B (Bld) [Mass/Vol] 2.7 pg/mL 0-100 [facility] Urea nitrogen/Creatinine [Mass ratio] 16.4 mg/mg 10-20 [facility] Laboratory - Hematology and Cell countsOrdered By: Dr. Lynn on 12-09-2022 Erythrocyte distribution width (RBC) [Entitic vol] 38.5 fL 35.1-43.9 [facility] Erythrocyte distribution width (RBC) [Ratio] 13.4 % 11.6-14.6 [facility] Immature granulocytes/100 WBC (Bld) 0.200 % 0.0-0.9 [facility] Comment on above: IG% - Immature Granu locytes (promyelocytes, myelocytes and metamyelocytes) > 1% indicates that a LEFT SHIFT is Present. MCH (RBC) [Entitic mass] 25.5 pg 27.0-32.0 [facility] Nucleated RBC/100 WBC (Bld) [Ratio] 0 % 0-5 [facility] MCHC Auto (RBC) [Mass/Vol]Or dered By: Dr. Lynn on 12-09-2022 MCHC (RBC) [Mass/Vol] 32.1 g/dL 32-36 [facility] No Panel InformationOrdered By: Dr. Lynn on 12-09-2022 Bed Mix Venous Bld PCO2 at Pat Temp 32.1 mmHg 41-51 [facility] Blood Gas Specimen Type JAIDEN [facility] Venous Blood Base Excess -3 mmol/L -1.0-3.5 [facility] D-Dimer Quantitative (PE/DVT) < 0.27 FEU/ug/m 0.27-0.49 [facility] Comment on above: NORMAL D-Dimer level (<0.50) indicates no DVT or PE. Estimated Creatinine Clearance Calc 91.04 ml/min [facility] Estimated GFR (MDRD) Amer 104 mL/min >60 [facility] Comment on above: GFR Calc Estimated GFR (MDRD) Non-Af Amer 86 mL/min >60 [facility] Comment on above: Non- GFR Calc Troponin I High Sensitivity 4 pg/mL 3.0-78.0 [facility] Comment on above: Please Note: New Nayla t Units and Gender Specific Reference Ranges. For more information see Policy Stat Procedure [facility] High Sensitivity Troponin (TNIH) and attachments. PO2 venousOrdered By: Dr. Marry baxter on 12-09-2022 Oxygen (BldV) [Partial pressure] 53 mm[Hg] 25-40 [facility] Platelets bldOrdered By: Dr. Lynn on 12-09-2022 Platelets (Bld) [#/Vol] 405 10*3/uL 150-450 [facility] Serum or plasma acetone koby urement (mass/volume)Ordered By: Dr. Lynn on 12-09-2022 Acetone [Mass/Vol] Negative NEG [facility] Serum or plasma calcium koby urement (mass/volume)Ordered By: Dr. Lynn on 12-09-2022 Calcium [Mass/Vol] 10.6 mg/dL 8.5-10.1 [facility] Serum or plasma creatinine m easurement (mass/volume)Ordered By: Dr. Lynn on 12-09-2022 Creatinine [Mass/Vol] 1.10 mg/dL 0.70-1.30 [facility] Comment on above: The validity of the calculated GFR & GFRAA in patients over 70 years has not been determined. Clinical correlation is essential. Serum or plasma urea nitroge n measurement (mass/volume)Ordered By: Dr. Lynn on 12-09-2022 Urea nitrogen [Mass/Vol] 18 mg/dL 7-18 [facility] Thin prep Papanicolaou smear with manual screeningOrdered By: Dr. Lynn on 12-09-2022 Thin prep Papanicolaou smear with manual screening 9 5-15 [facility] Vital signsOrdered By: Dr. Vicky coello on 12-09-2022 Oxygen saturation in Blood 88 % 50-70 [facility] pH measurementOrdered By: Dr Shin Lynn on 12-09-2022 pH (Unsp spec) 7.43 [pH] 7.32-7.42 [facility] Absolute lymphocyte countOrd ered By: ED PROVIDER on 12-03-2022 Lymphocytes Auto (Unsp spec) [#/Vol] 3.71 10*3/uL 0.83-4.51 [facility] Basophil percentageOrdered B y: ED PROVIDER on 12-03-2022 Basophils/100 WBC (Bld) 0.4 % 0-1 [facility] Eosinophils/100 WBC (Bld) 2.0 % 0-5 [facility] Neutrophils (Bld) [#/Vol] 8.6 10*3/uL 2.0-7.7 [facility] Neutrophils/100 WBC (Bld) 62.3 % 47-70 [facility] WBC (Bld) [#/Vol] 13.8 10*3/uL 4.4-11.0 [facility] Basophil percentageOrdered B y: Dr. Calvillo on 12-03-2022 Chloride [Moles/Vol] 105 mmol/L 98-107 [facility] Glucose [Mass/Vol] 64 mg/dL 74-106 [facility] Potassium [Moles/Vol] 3.6 mmol/L 3.5-5.1 [facility] Sodium [Moles/Vol] 138 mmol/L 136-145 [facility] Blood erythrocytes count (nu mber/volume)Ordered By: ED PROVIDER on 12-03-2022 RBC (Bld) [#/Vol] 5.14 10*6/uL 4.6-6.2 [facility] Blood hemoglobin measurement (mass/volume)Ordered By: ED PROVIDER on 12-03-2022 Hemoglobin (Bld) [Mass/Vol] 13.2 g/dL 13.0-16.5 [facility] Blood lymphocytes/100 leukoc ytesOrdered By: ED PROVIDER on 12-03-2022 Lymphocytes/100 WBC (Bld) 26.9 % 19-41 [facility] Blood monocytes/100 leukocyt esOrdered By: ED PROVIDER on 12-03-2022 Monocytes/100 WBC (Bld) 8.0 % 0-10 [facility] Blood platelet mean volumeOr dered By: ED PROVIDER on 12-03-2022 Platelet mean volume (Bld) [Entitic vol] 10.9 fL 6.2-12.0 [facility] Determination of erythrocyte mean corpuscular volume (MCV)Ordered By: ED PROVIDER on 12-03-2022 MCV (RBC) [Entitic vol] 84.0 fL 80-94 [facility] Hematocrit Auto (Bld) [Volum e fraction]Ordered By: ED PROVIDER on 12-03-2022 Hematocrit (Bld) [Volume fraction] 43.2 % 40-54 [facility] - Chemistry and C hemistry - challengeOrdered By: Dr. Calvillo on 12-03-2022 CO2 [Moles/Vol] 28.0 mmol/L 21.0-32.0 [facility] Urea nitrogen/Creatinine [Mass ratio] 16.6 mg/mg 10-20 [facility] - Hematology and Cell countsOrdered By: ED PROVIDER on 12-03-2022 Erythrocyte distribution width (RBC) [Entitic vol] 41.1 fL 35.1-43.9 [facility] Erythrocyte distribution width (RBC) [Ratio] 13.4 % 11.6-14.6 [facility] Immature granulocytes/100 WBC (Bld) 0.400 % 0.0-0.9 [facility] Comment on above: IG% - Immature Granu locytes (promyelocytes, myelocytes and metamyelocytes) > 1% indicates that a LEFT SHIFT is Present. MCH (RBC) [Entitic mass] 25.7 pg 27.0-32.0 [facility] Nucleated RBC/100 WBC (Bld) [Ratio] 0 % 0-5 [facility] MCHC Auto (RBC) [Mass/Vol]Or dered By: ED PROVIDER on 12-03-2022 MCHC (RBC) [Mass/Vol] 30.6 g/dL 32-36 [facility] No Panel InformationOrdered By: Dr. Calvillo on 12-03-2022 D-Dimer Quantitative (PE/DVT) 0.40 FEU/ug/m 0.27-0.49 [facility] Comment on above: NORMAL D-Dimer level (<0.50) indicates no DVT or PE. Estimated Creatinine Clearance Calc 159.00 ml/min [facility] Estimated GFR (MDRD) Amer 187 mL/min >60 [facility] Comment on above: GFR Calc Estimated GFR (MDRD) Non-Af Amer 155 mL/min >60 [facility] Comment on above: Non- GFR Calc Troponin I High Sensitivity 3 pg/mL 3.0-78.0 [facility] Comment on above: Please Note: New Nayla t Units and Gender Specific Reference Ranges. For more information see Policy Stat Procedure [facility] High Sensitivity Troponin (TNIH) and attachments. Platelets bldOrdered By: ED PROVIDER on 12-03-2022 Platelets (Bld) [#/Vol] 348 10*3/uL 150-450 [facility] Serum or plasma calcium koby urement (mass/volume)Ordered By: Dr. Calvillo on 12-03-2022 Calcium [Mass/Vol] 8.9 mg/dL 8.5-10.1 [facility] Serum or plasma creatinine m easurement (mass/volume)Ordered By: Dr. Calvillo on 12-03-2022 Creatinine [Mass/Vol] 0.66 mg/dL 0.70-1.30 [facility] Comment on above: The validity of the calculated GFR & GFRAA in patients over 70 years has not been determined. Clinical correlation is essential. Serum or plasma urea nitroge n measurement (mass/volume)Ordered By: Dr. Calvillo on 12-03-2022 Urea nitrogen [Mass/Vol] 11 mg/dL 7-18 [facility] Thin prep Papanicolaou smear with manual screeningOrdered By: Dr. Calvillo on 12-03-2022 Thin prep Papanicolaou smear with manual screening 5 5-15 [facility] Absolute lymphocyte countOrd ered By: ED PROVIDER on 11-17-2022 Lymphocytes Auto (Unsp spec) [#/Vol] 4.55 10*3/uL 0.83-4.51 [facility] Basophil percentageOrdered B y: ED PROVIDER on 11-17-2022 Basophils/100 WBC (Bld) 0.5 % 0-1 [facility] Chloride [Moles/Vol] 103 mmol/L 98-107 [facility] Eosinophils/100 WBC (Bld) 2.8 % 0-5 [facility] Glucose [Mass/Vol] 278 mg/dL 74-106 [facility] Comment on above: Glucose result great er than or equal to 200 mg/dLsuggests DIABETES MELLITUS per A.D.A. criteria. Neutrophils (Bld) [#/Vol] 5.8 10*3/uL 2.0-7.7 [facility] Neutrophils/100 WBC (Bld) 49.8 % 47-70 [facility] Potassium [Moles/Vol] 3.8 mmol/L 3.5-5.1 [facility] Sodium [Moles/Vol] 134 mmol/L 136-145 [facility] WBC (Bld) [#/Vol] 11.7 10*3/uL 4.4-11.0 [facility] Blood erythrocytes count (nu mber/volume)Ordered By: ED PROVIDER on 11-17-2022 RBC (Bld) [#/Vol] 5.10 10*6/uL 4.6-6.2 [facility] Blood hemoglobin measurement (mass/volume)Ordered By: ED PROVIDER on 11-17-2022 Hemoglobin (Bld) [Mass/Vol] 13.3 g/dL 13.0-16.5 [facility] Blood lymphocytes/100 leukoc ytesOrdered By: ED PROVIDER on 11-17-2022 Lymphocytes/100 WBC (Bld) 38.9 % 19-41 [facility] Blood monocytes/100 leukocyt esOrdered By: ED PROVIDER on 11-17-2022 Monocytes/100 WBC (Bld) 7.7 % 0-10 [facility] Blood platelet mean volumeOr dered By: ED PROVIDER on 11-17-2022 Platelet mean volume (Bld) [Entitic vol] 10.9 fL 6.2-12.0 [facility] Determination of erythrocyte mean corpuscular volume (MCV)Ordered By: ED PROVIDER on 11-17-2022 MCV (RBC) [Entitic vol] 80.6 fL 80-94 [facility] Hematocrit Auto (Bld) [Volum e fraction]Ordered By: ED PROVIDER on 11-17-2022 Hematocrit (Bld) [Volume fraction] 41.1 % 40-54 [facility] - Chemistry and C hemistry - challengeOrdered By: ED PROVIDER on 11-17-2022 CO2 [Moles/Vol] 26.0 mmol/L 21.0-32.0 [facility] Urea nitrogen/Creatinine [Mass ratio] 17.0 mg/mg 10-20 [facility] - Hematology and Cell countsOrdered By: ED PROVIDER on 11-17-2022 Erythrocyte distribution width (RBC) [Entitic vol] 37.6 fL 35.1-43.9 [facility] Erythrocyte distribution width (RBC) [Ratio] 12.8 % 11.6-14.6 [facility] Immature granulocytes/100 WBC (Bld) 0.300 % 0.0-0.9 [facility] Comment on above: IG% - Immature Granu locytes (promyelocytes, myelocytes and metamyelocytes) > 1% indicates that a LEFT SHIFT is Present. MCH (RBC) [Entitic mass] 26.1 pg 27.0-32.0 [facility] Nucleated RBC/100 WBC (Bld) [Ratio] 0 % 0-5 [facility] MCHC Auto (RBC) [Mass/Vol]Or dered By: ED PROVIDER on 11-17-2022 MCHC (RBC) [Mass/Vol] 32.4 g/dL 32-36 [facility] No Panel InformationOrdered By: ED PROVIDER on 11-17-2022 Estimated Creatinine Clearance Calc 127.57 ml/min [facility] Estimated GFR (MDRD) Amer 159 mL/min >60 [facility] Comment on above: GFR Calc Estimated GFR (MDRD) Non-Af Amer 131 mL/min >60 [facility] Comment on above: Non- GFR Calc Troponin I High Sensitivity < 3 pg/mL 3.0-78.0 [facility] Comment on above: Please Note: New Nayla t Units and Gender Specific Reference Ranges. For more information see Policy Stat Procedure [facility] High Sensitivity Troponin (TNIH) and attachments. Platelets bldOrdered By: ED PROVIDER on 11-17-2022 Platelets (Bld) [#/Vol] 304 10*3/uL 150-450 [facility] Serum or plasma calcium koby urement (mass/volume)Ordered By: ED PROVIDER on 11-17-2022 Calcium [Mass/Vol] 9.1 mg/dL 8.5-10.1 [facility] Serum or plasma creatinine m easurement (mass/volume)Ordered By: ED PROVIDER on 11-17-2022 Creatinine [Mass/Vol] 0.76 mg/dL 0.70-1.30 [facility] Comment on above: The validity of the calculated GFR & GFRAA in patients over 70 years has not been determined. Clinical correlation is essential. Serum or plasma urea nitroge n measurement (mass/volume)Ordered By: ED PROVIDER on 11-17-2022 Urea nitrogen [Mass/Vol] 13 mg/dL 7-18 [facility] Thin prep Papanicolaou smear with manual screeningOrdered By: ED PROVIDER on 11-17-2022 Thin prep Papanicolaou smear with manual screening 5 5-15 [facility] Absolute lymphocyte countOrd ered By: Dr. Palomino on 10-13-2022 Lymphocytes Auto (Unsp spec) [#/Vol] 3.87 10*3/uL 0.83-4.51 [facility] Basophil percentageOrdered B y: Dr. Palomino on 10-13-2022 Basophils/100 WBC (Bld) 0.8 % 0-1 [facility] Chloride [Moles/Vol] 105 mmol/L 98-107 [facility] Eosinophils/100 WBC (Bld) 4.3 % 0-5 [facility] Glucose [Mass/Vol] 243 mg/dL 74-106 [facility] Comment on above: Glucose result great er than or equal to 200 mg/dLsuggests DIABETES MELLITUS per A.D.A. criteria. Neutrophils (Bld) [#/Vol] 3.8 10*3/uL 2.0-7.7 [facility] Neutrophils/100 WBC (Bld) 43.5 % 47-70 [facility] Potassium [Moles/Vol] 3.4 mmol/L 3.5-5.1 [facility] Sodium [Moles/Vol] 140 mmol/L 136-145 [facility] WBC (Bld) [#/Vol] 8.8 10*3/uL 4.4-11.0 [facility] Blood erythrocytes count (nu mber/volume)Ordered By: Dr. Palomino on 10-13-2022 RBC (Bld) [#/Vol] 5.14 10*6/uL 4.6-6.2 [facility] Blood hemoglobin measurement (mass/volume)Ordered By: Dr. Palomino on 10-13-2022 Hemoglobin (Bld) [Mass/Vol] 13.3 g/dL 13.0-16.5 [facility] Blood lymphocytes/100 leukoc ytesOrdered By: Dr. Palomino on 10-13-2022 Lymphocytes/100 WBC (Bld) 44.1 % 19-41 [facility] Blood monocytes/100 leukocyt esOrdered By: Dr. Palomino on 10-13-2022 Monocytes/100 WBC (Bld) 7.2 % 0-10 [facility] Blood platelet mean volumeOr dered By: Dr. Palomino on 10-13-2022 Platelet mean volume (Bld) [Entitic vol] 10.4 fL 6.2-12.0 [facility] Determination of erythrocyte mean corpuscular volume (MCV)Ordered By: Dr. Palomino on 10-13-2022 MCV (RBC) [Entitic vol] 83.7 fL 80-94 [facility] Hematocrit Auto (Bld) [Volum e fraction]Ordered By: Dr. Palomino on 10-13-2022 Hematocrit (Bld) [Volume fraction] 43.0 % 40-54 [facility] - Chemistry and C hemistry - challengeOrdered By: Dr. Palomino on 10-13-2022 CO2 [Moles/Vol] 27.0 mmol/L 21.0-32.0 [facility] Urea nitrogen/Creatinine [Mass ratio] 13.8 mg/mg 10-20 [facility] - Hematology and Cell countsOrdered By: Dr. Palomino on 10-13-2022 Erythrocyte distribution width (RBC) [Entitic vol] 41.9 fL 35.1-43.9 [facility] Erythrocyte distribution width (RBC) [Ratio] 13.6 % 11.6-14.6 [facility] Immature granulocytes/100 WBC (Bld) 0.100 % 0.0-0.9 [facility] Comment on above: IG% - Immature Granu locytes (promyelocytes, myelocytes and metamyelocytes) > 1% indicates that a LEFT SHIFT is Present. MCH (RBC) [Entitic mass] 25.9 pg 27.0-32.0 [facility] Nucleated RBC/100 [facility]Bld) [[facility]] 0 [facility] [Mass/Vol]Or dered By: Dr. Palomino on 10-13-2022 MCHC (RBC) [Mass/Vol] 30.9 g/dL 32-36 [facility] No Panel InformationOrdered By: Dr. Palomino on 10-13-2022 Estimated Creatinine Clearance Calc 131.33 ml/min [facility] Estimated GFR (MDRD) Amer 169 mL/min >60 [facility] Comment on above: GFR Calc Estimated GFR (MDRD) Non-Af Amer 140 mL/min >60 [facility] Comment on above: Non- GFR Calc Troponin I High Sensitivity 4 pg/mL 3.0-78.0 [facility] Comment on above: Please Note: New Nayla t Units and Gender Specific Reference Ranges. For more information see Policy Stat Procedure [facility] High Sensitivity Troponin (TNIH) and attachments. Platelets bldOrdered By: Dr. Palomino on 10-13-2022 Platelets (Bld) [#/Vol] 309 10*3/uL 150-450 [facility] Serum or plasma calcium koby urement (mass/volume)Ordered By: Dr. Palomino on 10-13-2022 Calcium [Mass/Vol] 8.8 mg/dL 8.5-10.1 [facility] Serum or plasma creatinine m easurement (mass/volume)Ordered By: Dr. Palomino on 10-13-2022 Creatinine [Mass/Vol] 0.72 mg/dL 0.70-1.30 [facility] Comment on above: The validity of the calculated GFR & GFRAA in patients over 70 years has not been determined. Clinical correlation is essential. Serum or plasma urea nitroge n measurement (mass/volume)Ordered By: Dr. Palomino on 10-13-2022 Urea nitrogen [Mass/Vol] 10 mg/dL 7-18 [facility] Thin prep Papanicolaou smear with manual screeningOrdered By: Dr. Palomino on 10-13-2022 Thin prep Papanicolaou smear with manual screening 8 5-15 [facility] Absolute lymphocyte countOrd ered By: Dr. Reed on 08-24-2022 Lymphocytes Auto (Unsp spec) [#/Vol] 5.98 10*3/uL 0.83-4.51 [facility] Basophil percentageOrdered B y: Dr. Reed on 08-24-2022 Basophils/100 WBC (Bld) 0.3 % 0-1 [facility] Chloride [Moles/Vol] 103 mmol/L 98-107 [facility] Eosinophils/100 WBC (Bld) 5.5 % 0-5 [facility] Glucose [Mass/Vol] 52 mg/dL 74-106 [facility] Neutrophils (Bld) [#/Vol] 3.8 10*3/uL 2.0-7.7 [facility] Neutrophils/100 WBC (Bld) 30.5 % 47-70 [facility] Potassium [Moles/Vol] 3.0 mmol/L 3.5-5.1 [facility] Sodium [Moles/Vol] 142 mmol/L 136-145 [facility] WBC (Bld) [#/Vol] 12.6 10*3/uL 4.4-11.0 [facility] Blood erythrocytes count (nu mber/volume)Ordered By: Dr. Reed on 08-24-2022 RBC (Bld) [#/Vol] 5.40 10*6/uL 4.6-6.2 [facility] Blood hemoglobin measurement (mass/volume)Ordered By: Dr. Reed on 08-24-2022 Hemoglobin (Bld) [Mass/Vol] 14.0 g/dL 13.0-16.5 [facility] Blood lymphocytes/100 leukoc ytesOrdered By: Dr. Reed on 08-24-2022 Lymphocytes/100 WBC (Bld) 47.4 % 19-41 [facility] Blood manual differential co mment interpretation (narrative result)Ordered By: Dr. Reed on 08-24-2022 Manual differential comment Gigi (Bld) [Interp] SCANNED [facility] Blood monocytes/100 leukocyt esOrdered By: Dr. Reed on 08-24-2022 Monocytes/100 WBC (Bld) 16.0 % 0-10 [facility] Blood platelet mean volumeOr dered By: Dr. Reed on 08-24-2022 Platelet mean volume (Bld) [Entitic vol] 10.5 fL 6.2-12.0 [facility] Determination of erythrocyte mean corpuscular volume (MCV)Ordered By: Dr. Reed on 08-24-2022 MCV (RBC) [Entitic vol] 81.5 fL 80-94 [facility] Hematocrit Auto (Bld) [Volum e fraction]Ordered By: Dr. Reed on 08-24-2022 Hematocrit (Bld) [Volume fraction] 44.0 % 40-54 [facility] - Chemistry and C hemistry - challengeOrdered By: Dr. Reed on 08-24-2022 CO2 [Moles/Vol] 32.0 mmol/L 21.0-32.0 [facility] Urea nitrogen/Creatinine [Mass ratio] 16.8 mg/mg 10-20 [facility] - Hematology and Cell countsOrdered By: Dr. Reed on 08-24-2022 Erythrocyte distribution width (RBC) [Entitic vol] 40.7 fL 35.1-43.9 [facility] Erythrocyte distribution width (RBC) [Ratio] 14.0 % 11.6-14.6 [facility] Immature granulocytes/100 WBC (Bld) 0.300 % 0.0-0.9 [facility] Comment on above: IG% - Immature Granu locytes (promyelocytes, myelocytes and metamyelocytes) > 1% indicates that a LEFT SHIFT is Present. MCH (RBC) [Entitic mass] 25.9 pg 27.0-32.0 [facility] Nucleated RBC/100 WBC (Bld) [Ratio] 0 % 0-5 [facility] MCHC Auto (RBC) [Mass/Vol]Or dered By: Dr. Reed on 08-24-2022 MCHC (RBC) [Mass/Vol] 31.8 g/dL 32-36 [facility] Comment on above: Delta: 33.6 on 08/20 No Panel InformationOrdered By: Dr. Reed on 08-24-2022 Estimated Creatinine Clearance Calc 143.27 ml/min [facility] Estimated GFR (MDRD) Amer 190 mL/min >60 [facility] Comment on above: GFR Calc Estimated GFR (MDRD) Non-Af Amer 157 mL/min >60 [facility] Comment on above: Non- GFR Calc Reactive Lymphocytes 1+ [facility] Platelets bldOrdered By: Dr. Reed on 08-24-2022 Platelets (Bld) [#/Vol] 492 10*3/uL 150-450 [facility] Review by pathologistOrdered By: Dr. Reed on 08-24-2022 Pathologist review Gigi (Unsp spec) [Interp] December bowen [facility] Pathologist review Gigi (Unsp spec) [Interp] Reviewed [facility] Comment on above: Previous reported re sult: Louisa bowen Edited by: RGOOD on 08/26/22:0938Leukocytosis. Thrombocytosis.Clinical correlation necessary.Herson Olivas M.D. 08/26/22 AMENDED REPORT 08/26/22 0938 PATH REV previously reported as: Louisa wiseman Serum or plasma calcium koby urement (mass/volume)Ordered By: Dr. Reed on 08-24-2022 Calcium [Mass/Vol] 9.4 mg/dL 8.5-10.1 [facility] Serum or plasma creatinine m easurement (mass/volume)Ordered By: Dr. Reed on 08-24-2022 Creatinine [Mass/Vol] 0.66 mg/dL 0.70-1.30 [facility] Comment on above: The validity of the calculated GFR & GFRAA in patients over 70 years has not been determined. Clinical correlation is essential. Serum or plasma urea nitroge n measurement (mass/volume)Ordered By: Dr. Reed on 08-24-2022 Urea nitrogen [Mass/Vol] 11 mg/dL 7-18 [facility] Thin prep Papanicolaou smear with manual screeningOrdered By: Dr. Reed on 08-24-2022 Thin prep Papanicolaou smear with manual screening 7 5-15 [facility] Absolute lymphocyte countOrd ered By: Dr. Cruz on 08-20-2022 Lymphocytes Auto (Unsp spec) [#/Vol] 3.61 10*3/uL 0.83-4.51 [facility] Basophil percentageOrdered B y: Dr. Cruz on 08-20-2022 Basophils/100 WBC (Bld) 0.2 % 0-1 [facility] Chloride [Moles/Vol] 104 mmol/L 98-107 [facility] Eosinophils/100 WBC (Bld) 0.2 % 0-5 [facility] Glucose [Mass/Vol] 162 mg/dL 74-106 [facility] Comment on above: Fasting Glucose resu lt greater than or equal to 126 mg/dL suggests DIABETES MELLITUS per A.D.A. criteria. Neutrophils (Bld) [#/Vol] 7.8 10*3/uL 2.0-7.7 [facility] Neutrophils/100 WBC (Bld) 60.1 % 47-70 [facility] Potassium [Moles/Vol] 3.0 mmol/L 3.5-5.1 [facility] Sodium [Moles/Vol] 141 mmol/L 136-145 [facility] WBC (Bld) [#/Vol] 13.0 10*3/uL 4.4-11.0 [facility] Blood erythrocytes count (nu mber/volume)Ordered By: Dr. Cruz on 08-20-2022 RBC (Bld) [#/Vol] 4.34 10*6/uL 4.6-6.2 [facility] Blood hemoglobin measurement (mass/volume)Ordered By: Dr. Cruz on 08-20-2022 Hemoglobin (Bld) [Mass/Vol] 11.7 g/dL 13.0-16.5 [facility] Blood lymphocytes/100 leukoc ytesOrdered By: Dr. Cruz on 08-20-2022 Lymphocytes/100 WBC (Bld) 27.7 % 19-41 [facility] Blood monocytes/100 leukocyt esOrdered By: Dr. Cruz on 08-20-2022 Monocytes/100 WBC (Bld) 11.4 % 0-10 [facility] Blood platelet mean volumeOr dered By: Dr. Cruz on 08-20-2022 Platelet mean volume (Bld) [Entitic vol] 10.1 fL 6.2-12.0 [facility] Determination of erythrocyte mean corpuscular volume (MCV)Ordered By: Dr. Cruz on 08-20-2022 MCV (RBC) [Entitic vol] 80.2 fL 80-94 [facility] Glucose Glucometer (BldC) [M ass/Vol]Ordered By: Dr. Cruz on 08-20-2022 Glucose [Mass/Vol] 120 mg/dL 74-106 [facility] Comment on above: MANAGEMENT OF PATIEN T CARE PER NURSING PROTOCOL Hematocrit Auto (Bld) [Volum e fraction]Ordered By: Dr. Cruz on 08-20-2022 Hematocrit (Bld) [Volume fraction] 34.8 % 40-54 [facility] - Chemistry and C hemistry - challengeOrdered By: Dr. Cruz on 08-20-2022 CO2 [Moles/Vol] 31.0 mmol/L 21.0-32.0 [facility] Urea nitrogen/Creatinine [Mass ratio] 18.1 mg/mg 10-20 [facility] - Hematology and Cell countsOrdered By: Dr. Cruz on 08-20-2022 Erythrocyte distribution width (RBC) [Entitic vol] 42.3 fL 35.1-43.9 [facility] Erythrocyte distribution width (RBC) [Ratio] 14.5 % 11.6-14.6 [facility] Immature granulocytes/100 WBC (Bld) 0.400 % 0.0-0.9 [facility] Comment on above: IG% - Immature Granu locytes (promyelocytes, myelocytes and metamyelocytes) > 1% indicates that a LEFT SHIFT is Present. MCH (RBC) [Entitic mass] 27.0 pg 27.0-32.0 [facility] Nucleated RBC/100 WBC (Bld) [Ratio] 0 % 0-5 [facility] MCHC Auto (RBC) [Mass/Vol]Or dered By: Dr. Cruz on 08-20-2022 MCHC (RBC) [Mass/Vol] 33.6 g/dL 32-36 [facility] No Panel InformationOrdered By: Dr. Cruz on 08-20-2022 Estimated Creatinine Clearance Calc 189.05 ml/min [facility] Estimated GFR (MDRD) Amer 232 mL/min >60 [facility] Comment on above: GFR Calc Estimated GFR (MDRD) Non-Af Amer 191 mL/min >60 [facility] Comment on above: Non- GFR Calc Platelets bldOrdered By: Dr. Cruz on 08-20-2022 Platelets (Bld) [#/Vol] 254 10*3/uL 150-450 [facility] Serum or plasma calcium koby urement (mass/volume)Ordered By: Dr. Cruz on 08-20-2022 Calcium [Mass/Vol] 8.0 mg/dL 8.5-10.1 [facility] Serum or plasma creatinine m easurement (mass/volume)Ordered By: Dr. Cruz on 08-20-2022 Creatinine [Mass/Vol] 0.55 mg/dL 0.70-1.30 [facility] Comment on above: The validity of the calculated GFR & GFRAA in patients over 70 years has not been determined. Clinical correlation is essential. Serum or plasma urea nitroge n measurement (mass/volume)Ordered By: Dr. Cruz on 08-20-2022 Urea nitrogen [Mass/Vol] 10 mg/dL 7-18 [facility] Thin prep Papanicolaou smear with manual screeningOrdered By: Dr. Cruz on 08-20-2022 Thin prep Papanicolaou smear with manual screening 6 5-15 [facility] Throat Streptococcus pyogene s antigen detection by immunofluorescenceOrdered By: Dr. Cruz on 08-20-2022 S. pyogenes Ag IF Ql (Throat) [facility] Review by pathologistOrdered By: Dr. Cruz on 08-19-2022 Pathologist review Gigi (Unsp spec) [Interp] Reviewed [facility] Comment on above: Previous reported re sult: Louisa wiseman Edited by: RGOOD on 08/20/22:0931Neutrophilic leukocytosis.Clinical correlation necessary.Herson Olivas M.D. 08/20/22 AMENDED REPORT 08/20/22 0931 PATH REV previously reported as: Louisa wiseman Basophil percentageOrdered B y: Dr. Handy on 08-18-2022 Lactate [Moles/Vol] 1.2 mmol/L 0.4-2.0 [facility] Basophil percentage 7.9 mg/dL 2.5-4.9 [facility] Basophil percentageOrdered B y: Dr. Cruz on 08-18-2022 Basophil percentage 0 SEEN /hpf 0-5 [facility] Bilirubin [Mass/Vol] 0.70 mg/dL 0.20-1.00 [facility] Comment on above: For patients on eltr ombopag therapy, use of Dimension [facility] TBIL is not recommended. Protein [Mass/Vol] 7.2 g/dL 6.4-8.2 [facility] Bilirubin Test strip Ql (U)O rdered By: Dr. Cruz on 08-18-2022 Bilirubin Ql (U) Negative Negative [facility] Blood manual differential co mment interpretation (narrative result)Ordered By: Dr. Handy on 08-18-2022 Manual differential comment Gigi (Bld) [Interp] SCANNED [facility] Direct bilirubinOrdered By: Dr. Cruz on 08-18-2022 Bilirubin.direct [Mass/Vol] 0.13 mg/dL 0.00-0.30 [facility] HCO3 (BldA) [Moles/Vol]Order ed By: Dr. Cruz on 08-18-2022 HCO3 (Bld) [Moles/Vol] 4 mmol/L 22-26 [facility] Ketones Test strip Ql (U)Ord ered By: Dr. Cruz on 08-18-2022 Ketones Ql (U) 150 mg/dl Negative [facility] Comment on above: CRITICAL VALUE *HCRI TICAL VALUE VERIFIED. CALLED TO JOSE CARLOS ROGERS (ICU)08/18/22 1516 Walt Hoff.RESULTS READ BACK BY SAME. Laboratory - Chemistry and C hemistry - challengeOrdered By: Dr. Cruz on 08-18-2022 ALP [Catalytic activity/Vol] 178 U/L 45-117 [facility] ALT [Catalytic activity/Vol] 18 U/L 16-61 [facility] Globulin (S) [Mass/Vol] 4.0 g/dL 2.2-4.2 [facility] Laboratory - Chemistry and C hemistry - challengeOrdered By: Dr. Handy on 08-18-2022 Lipase [Catalytic activity/Vol] 34 U/L 73-393 [facility] Magnesium [Mass/Vol] 3.2 mg/dL 1.6-2.6 [facility] Laboratory - Microbiology an d Antimicrobial susceptibilityOrdered By: Dr. Cruz on 08-18-2022 SARS-CoV-2 (COVID-19) RNA LM+probe Ql (Unsp spec) Not detected Not Detect [facility] Comment on above: Normal Reference Ran ge: [...] and RNA 12b panel LM+probe (Unsp spec) [facility] Mucus LM Ql (Urine sed)Order ed By: Dr. Cruz on 08-18-2022 Mucus Ql (Urine sed) 0 SEEN /hpf [facility] Nitrite Test strip Ql (U)Ord ered By: Dr. Cruz on 08-18-2022 Nitrite Ql (U) Negative Negative [facility] No Panel InformationOrdered By: Dr. Cruz on 08-18-2022 Bed Mix Venous Bld PCO2 at Pat Temp 13.9 mmHg 41-51 [facility] Bld Gas Crit Called To/Read Back By Yes [facility] Blood Gas Notified Time 10:17:05 [facility] Blood Gas Notified Whom anna marie [facility] Blood Gas Specimen Type JAIDEN [facility] Oxygen Delivery Device Room Air [facility] Venous Blood Base Excess -25 mmol/L -1.0-3.5 [facility] Venous Blood Total Carbon Dioxide < 5 mmol/L 23-33 [facility] PO2 venousOrdered By: Dr. David guillory on 08-18-2022 Oxygen (BldV) [Partial pressure] 64 mm[Hg] 25-40 [facility] Protein Test strip Ql (U)Ord ered By: Dr. Cruz on 08-18-2022 Protein Ql (U) 15 mg/dl Negative [facility] Serum or plasma acetone koby urement (mass/volume)Ordered By: Dr. Handy on 08-18-2022 Acetone [Mass/Vol] LARGE NEG [facility] Serum or plasma albumin koby urement (mass/volume)Ordered By: Dr. Cruz on 08-18-2022 Albumin [Mass/Vol] 3.2 g/dL 3.2-5.0 [facility] Squamous epithelial cells de tection in urine sediment by light microscopyOrdered By: Dr. Cruz on 08-18-2022 Epithelial cells.squamous LM Ql (Urine sed) 0 SEEN /hpf 0-5 [facility] Thin prep Papanicolaou smear with manual screeningOrdered By: Dr. Cruz on 08-18-2022 Thin prep Papanicolaou smear with manual screening 3 U/L 15-37 [facility] Urine blood detectionOrdered By: Dr. Cruz on 08-18-2022 RBC Ql (U) Negative Negative [facility] RBC Ql (U) 0 SEEN /hpf 0-5 [facility] Urine clarityOrdered By: Dr. Cruz on 08-18-2022 Clarity (U) Clear Clear [facility] Urine color determinationOrd ered By: Dr. Cruz on 08-18-2022 Color (U) Straw Yellow [facility] Urine glucose detectionOrder ed By: Dr. Cruz on 08-18-2022 Glucose Ql (U) 1000 mg/dl Normal [facility] Urine leukocyte esterase det ection by dipstickOrdered By: Dr. Cruz on 08-18-2022 Leukocyte esterase Test strip Ql (U) Negative Negative [facility] Urine pHOrdered By: Dr. Karla green on 08-18-2022 pH (U) 5.0 [pH] 5.0 - 8.0 [facility] Urine sediment bacteria coun t by microscopy (number/high power field)Ordered By: Dr. Cruz on 08-18-2022 Bacteria LM.HPF (Urine sed) [#/Area] 0 /[HPF] None Seen [facility] Urine specific gravity measu rementOrdered By: Dr. Cruz on 08-18-2022 Specific gravity (U) [Rel density] 1.020 1.002-1.03 0 [facility] Urobilinogen Auto test strip Ql (U)Ordered By: Dr. Cruz on 08-18-2022 Urobilinogen Ql (U) Normal mg/dl Normal [facility] Vital signsOrdered By: Dr. Bladimir hernandez on 08-18-2022 Oxygen saturation in Blood 84 % 50-70 [facility] Whole blood hemoglobin A1c/t otal hemoglobin ratio (mass fraction)Ordered By: Dr. Handy on 08-18-2022 HbA1c (Bld) [Mass fraction] 10.7 % 3.8-5.6 [facility] Comment on above: Normal < 5.7 % Predi abetic 5.7 - 6.4 % Diabetic >or= 6.5 % Please note range changes. pH measurementOrdered By: Dr Shin Cruz on 08-18-2022 pH (Unsp spec) 7.10 [pH] 7.32-7.42 [facility] Absolute lymphocyte countOrd ered By: Lourdes Metz on 07-07-2022 Lymphocytes Auto (Unsp spec) [#/Vol] 1.75 10*3/uL 0.83-4.51 [facility] Basophil percentageOrdered B y: Lourdes Metz on 07-07-2022 Basophils/100 WBC (Bld) 0.4 % 0-1 [facility] Chloride [Moles/Vol] 95 mmol/L 98-107 [facility] Eosinophils/100 WBC (Bld) 0.4 % 0-5 [facility] Glucose [Mass/Vol] 376 mg/dL 74-106 [facility] Comment on above: Glucose result great er than or equal to 200 mg/dLsuggests DIABETES MELLITUS per A.D.A. criteria. Neutrophils (Bld) [#/Vol] 4.7 10*3/uL 2.0-7.7 [facility] Neutrophils/100 WBC (Bld) 62.7 % 47-70 [facility] Potassium [Moles/Vol] 3.6 mmol/L 3.5-5.1 [facility] Sodium [Moles/Vol] 133 mmol/L 136-145 [facility] WBC (Bld) [#/Vol] 7.5 10*3/uL 4.4-11.0 [facility] Blood erythrocytes count (nu mber/volume)Ordered By: Lourdes Metz on 07-07-2022 RBC (Bld) [#/Vol] 5.38 10*6/uL 4.6-6.2 [facility] Blood hemoglobin measurement (mass/volume)Ordered By: Lourdes Metz on 07-07-2022 Hemoglobin (Bld) [Mass/Vol] 14.3 g/dL 13.0-16.5 [facility] Blood lymphocytes/100 leukoc ytesOrdered By: Lourdes Metz on 07-07-2022 Lymphocytes/100 WBC (Bld) 23.2 % 19-41 [facility] Blood monocytes/100 leukocyt esOrdered By: Lourdes Metz on 07-07-2022 Monocytes/100 WBC (Bld) 13.0 % 0-10 [facility] Blood platelet mean volumeOr dered By: Lourdes Metz on 07-07-2022 Platelet mean volume (Bld) [Entitic vol] 11.2 fL 6.2-12.0 [facility] Determination of erythrocyte mean corpuscular volume (MCV)Ordered By: Lourdes Metz on 07-07-2022 MCV (RBC) [Entitic vol] 81.0 fL 80-94 [facility] Glucose Glucometer (dC) [M ass/Vol]Ordered By: Dr. Mcclain on 07-07-2022 Glucose [Mass/Vol] 158 mg/dL 74-106 [facility] Comment on above: MANAGEMENT OF PATIEN T CARE PER NURSING PROTOCOL Hematocrit Auto (Bld) [Volum e fraction]Ordered By: Lourdes Metz on 07-07-2022 Hematocrit (Bld) [Volume fraction] 43.6 % 40-54 [facility] Influenza virus A and B and SARS-CoV-2 (COVID-19) Ag panel - Upper respiratory specimOrdered By: Lourdes Metz on 07-07-2022 SARS-CoV-2 & FLU Antigen (Rapid) SARS-CoV-2 (COVID 19) [facility] Laboratory - Chemistry and C hemistry - challengeOrdered By: Lourdes Metz on 07-07-2022 CO2 [Moles/Vol] 29.0 mmol/L 21.0-32.0 [facility] Urea nitrogen/Creatinine [Mass ratio] 10.0 mg/mg 10-20 [facility] Laboratory - Hematology and Cell countsOrdered By: Lourdes Metz on 07-07-2022 Erythrocyte distribution width (RBC) [Entitic vol] 41.0 fL 35.1-43.9 [facility] Erythrocyte distribution width (RBC) [Ratio] 14.0 % 11.6-14.6 [facility] Immature granulocytes/100 WBC (Bld) 0.300 % 0.0-0.9 [facility] Comment on above: IG% - Immature Granu locytes (promyelocytes, myelocytes and metamyelocytes) > 1% indicates that a LEFT SHIFT is Present. MCH (RBC) [Entitic mass] 26.6 pg 27.0-32.0 [facility] Nucleated RBC/100 WBC (Bld) [Ratio] 0 % 0-5 [facility] MCHC Auto (RBC) [Mass/Vol]Or dered By: Lourdes Metz on 07-07-2022 MCHC (RBC) [Mass/Vol] 32.8 g/dL 32-36 [facility] No Panel InformationOrdered By: Lourdes Metz on 07-07-2022 D-Dimer Quantitative (PE/DVT) 0.28 FEU/ug/m 0.27-0.49 [facility] Comment on above: NORMAL D-Dimer level (<0.50) indicates no DVT or PE. Estimated Creatinine Clearance Calc 109.25 ml/min [facility] Estimated GFR (MDRD) Amer 117 mL/min >60 [facility] Comment on above: GFR Calc Estimated GFR (MDRD) Non-Af Amer 97 mL/min >60 [facility] Comment on above: Non- GFR Calc Troponin I High Sensitivity 4 pg/mL 3.0-78.0 [facility] Comment on above: Please Note: New Nayla t Units and Gender Specific Reference Ranges. For more information see Policy Stat Procedure [facility] High Sensitivity Troponin (TNIH) and attachments. Platelets bldOrdered By: Graham Metz on 07-07-2022 Platelets (Bld) [#/Vol] 260 10*3/uL 150-450 [facility] Serum or plasma calcium koby urement (mass/volume)Ordered By: Lourdes Metz on 07-07-2022 Calcium [Mass/Vol] 8.8 mg/dL 8.5-10.1 [facility] Serum or plasma creatinine m easurement (mass/volume)Ordered By: Lourdes Metz on 07-07-2022 Creatinine [Mass/Vol] 1.00 mg/dL 0.70-1.30 [facility] Comment on above: The validity of the calculated GFR & GFRAA in patients over 70 years has not been determined. Clinical correlation is essential. Serum or plasma urea nitroge n measurement (mass/volume)Ordered By: Lourdes Metz on 07-07-2022 Urea nitrogen [Mass/Vol] 10 mg/dL 7-18 [facility] Thin prep Papanicolaou smear with manual screeningOrdered By: Lourdes Metz on 07-07-2022 Thin prep Papanicolaou smear with manual screening 9 5-15 [facility] Glucose Glucometer (BldC) [M ass/Vol]Ordered By: Dr. Zarate on 07-01-2022 Glucose [Mass/Vol] 85 mg/dL 74-106 [facility] Comment on above: MANAGEMENT OF PATIEN T CARE PER NURSING PROTOCOL Serum or plasma acetone koby urement (mass/volume)Ordered By: Dr. Zarate on 07-01-2022 Acetone [Mass/Vol] MODERATE NEG [facility] Absolute lymphocyte countOrd ered By: Dr. Zarate on 06-30-2022 Lymphocytes Auto (Unsp spec) [#/Vol] 4.64 10*3/uL 0.83-4.51 [facility] Basophil percentageOrdered B y: Dr. Zarate on 06-30-2022 Basophils/100 WBC (Bld) 0.8 % 0-1 [facility] Chloride [Moles/Vol] 97 mmol/L 98-107 [facility] Eosinophils/100 WBC (Bld) 5.2 % 0-5 [facility] Glucose [Mass/Vol] 569 mg/dL 74-106 [facility] Comment on above: Critical Result(s) C alled at: 23:51:55 06/30/2022 by: Jorge A Tamayo TO CURT HORN RN (ED) Results read back by same.Glucose result greater than or equal to 200 mg/dLsuggests DIABETES MELLITUS per A.D.A. criteria. Neutrophils (Bld) [#/Vol] 5.9 10*3/uL 2.0-7.7 [facility] Neutrophils/100 WBC (Bld) 48.9 % 47-70 [facility] Potassium [Moles/Vol] 4.2 mmol/L 3.5-5.1 [facility] Sodium [Moles/Vol] 134 mmol/L 136-145 [facility] WBC (Bld) [#/Vol] 12.1 10*3/uL 4.4-11.0 [facility] Blood erythrocytes count (nu mber/volume)Ordered By: Dr. Zarate on 06-30-2022 RBC (Bld) [#/Vol] 5.32 10*6/uL 4.6-6.2 [facility] Blood hemoglobin measurement (mass/volume)Ordered By: Dr. Zraate on 06-30-2022 Hemoglobin (Bld) [Mass/Vol] 14.0 g/dL 13.0-16.5 [facility] Blood lymphocytes/100 leukoc ytesOrdered By: Dr. Zarate on 06-30-2022 Lymphocytes/100 WBC (Bld) 38.4 % 19-41 [facility] Blood monocytes/100 leukocyt esOrdered By: Dr. Zarate on 06-30-2022 Monocytes/100 WBC (Bld) 6.0 % 0-10 [facility] Blood platelet mean volumeOr dered By: Dr. Zarate on 06-30-2022 Platelet mean volume (Bld) [Entitic vol] 10.6 fL 6.2-12.0 [facility] Determination of erythrocyte mean corpuscular volume (MCV)Ordered By: Dr. Zarate on 06-30-2022 MCV (RBC) [Entitic vol] 80.3 fL 80-94 [facility] Hematocrit Auto (Bld) [Volum e fraction]Ordered By: Dr. Zarate on 06-30-2022 Hematocrit (Bld) [Volume fraction] 42.7 % 40-54 [facility] Laboratory - Chemistry and C hemistry - challengeOrdered By: Dr. Zaarte on 06-30-2022 CO2 [Moles/Vol] 22.0 mmol/L 21.0-32.0 [facility] Urea nitrogen/Creatinine [Mass ratio] 15.8 mg/mg 10-20 [facility] Laboratory - Hematology and Cell countsOrdered By: Dr. Zarate on 06-30-2022 Erythrocyte distribution width (RBC) [Entitic vol] 39.7 fL 35.1-43.9 [facility] Erythrocyte distribution width (RBC) [Ratio] 13.7 % 11.6-14.6 [facility] Immature granulocytes/100 WBC (Bld) 0.700 % 0.0-0.9 [facility] Comment on above: IG% - Immature Granu locytes (promyelocytes, myelocytes and metamyelocytes) > 1% indicates that a LEFT SHIFT is Present. MCH (RBC) [Entitic mass] 26.3 pg 27.0-32.0 [facility] Nucleated RBC/100 WBC (Bld) [Ratio] 0 % 0-5 [facility] MCHC Auto (RBC) [Mass/Vol]Or dered By: Dr. Zarate on 06-30-2022 MCHC (RBC) [Mass/Vol] 32.8 g/dL 32-36 [facility] No Panel InformationOrdered By: Dr. Zarate on 06-30-2022 D-Dimer Quantitative (PE/DVT) < 0.27 FEU/ug/m 0.27-0.49 [facility] Comment on above: NORMAL D-Dimer level (<0.50) indicates no DVT or PE. Estimated Creatinine Clearance Calc 97.16 ml/min [facility] Estimated GFR (MDRD) Amer 95 mL/min >60 [facility] Comment on above: GFR Calc Estimated GFR (MDRD) Non-Af Amer 78 mL/min >60 [facility] Comment on above: Non- GFR Calc Troponin I High Sensitivity 4 pg/mL 3.0-78.0 [facility] Comment on above: Please Note: New Nayla t Units and Gender Specific Reference Ranges. For more information see Policy Stat Procedure [facility] High Sensitivity Troponin (TNIH) and attachments. Platelets bldOrdered By: Dr. Zarate on 06-30-2022 Platelets (Bld) [#/Vol] 456 10*3/uL 150-450 [facility] Serum or plasma calcium koby urement (mass/volume)Ordered By: Dr. Zarate on 06-30-2022 Calcium [Mass/Vol] 8.8 mg/dL 8.5-10.1 [facility] Serum or plasma creatinine m easurement (mass/volume)Ordered By: Dr. Zarate on 06-30-2022 Creatinine [Mass/Vol] 1.20 mg/dL 0.70-1.30 [facility] Comment on above: The validity of the calculated GFR & GFRAA in patients over 70 years has not been determined. Clinical correlation is essential. Serum or plasma urea nitroge n measurement (mass/volume)Ordered By: Dr. Zarate on 06-30-2022 Urea nitrogen [Mass/Vol] 19 mg/dL 7-18 [facility] Thin prep Papanicolaou smear with manual screeningOrdered By: Dr. Zarate on 06-30-2022 Thin prep Papanicolaou smear with manual screening 15 5-15 [facility] Absolute lymphocyte counton 03-03-2022 Lymphocytes Auto (Unsp spec) [#/Vol] 3.87 10*3/uL 0.83-4.51 [facility] Work Phone: Basophil percentageon 2021 Basophils/100 WBC (Bld) 0.3 % 0-1 [facility] Work Phone: Chloride [Moles/Vol] 113 mmol/L 98-107 [facility] Work Phone: Eosinophils/100 WBC (Bld) 1.7 % 0-5 [facility] Work Phone: Glucose [Mass/Vol] 71 mg/dL 74-106 [facility] Work Phone: Neutrophils (Bld) [#/Vol] 8.9 10*3/uL 2.0-7.7 [facility] Work Phone: Neutrophils/100 WBC (Bld) 62.2 % 47-70 [facility] Work Phone: Potassium [Moles/Vol] 3.6 mmol/L 3.5-5.1 [facility] Work Phone: Sodium [Moles/Vol] 142 mmol/L 136-145 [facility] Work Phone: WBC (Bld) [#/Vol] 14.3 10*3/uL 4.4-11.0 [facility] Work Phone: Blood erythrocytes count (nu mber/volume)on 03-03-2022 RBC (Bld) [#/Vol] 4.58 10*6/uL 4.6-6.2 [facility] Work Phone: Blood hemoglobin measurement (mass/volume)on 03-03-2022 Hemoglobin (Bld) [Mass/Vol] 12.6 g/dL 13.0-16.5 [facility] Work Phone: Blood lymphocytes/100 leukoc yteson 03-03-2022 Lymphocytes/100 WBC (Bld) 27.0 % 19-41 [facility] Work Phone: Blood monocytes/100 leukocyt eson 03-03-2022 Monocytes/100 WBC (Bld) 8.2 % 0-10 [facility] Work Phone: Blood platelet mean volumeon 03-03-2022 Platelet mean volume (Bld) [Entitic vol] 9.4 fL 6.2-12.0 [facility] Work Phone: Determination of erythrocyte mean corpuscular volume (MCV)on 03-03-2022 MCV (RBC) [Entitic vol] 83.6 fL 80-94 [facility] Work Phone: Comment on above: Delta: 91.7 on 03/02-1026 Glucose Glucometer (BldC) [M ass/Vol]on 03-03-2022 Glucose [Mass/Vol] 224 mg/dL 74-106 [facility] Work Phone: Comment on above: MANAGEMENT OF PATIEN T CARE PER NURSING PROTOCOL Hematocrit Auto (Bld) [Volum e fraction]on 03-03-2022 Hematocrit (Bld) [Volume fraction] 38.3 % 40-54 [facility] Work Phone: Laboratory - Chemistry and C hemistry - challengeon 03-03-2022 CO2 [Moles/Vol] 21.0 mmol/L 21.0-32.0 [facility] Work Phone: Urea nitrogen/Creatinine [Mass ratio] 14.9 mg/mg 10-20 [facility] Work Phone: Laboratory - Hematology and Cell countson 03-03-2022 Erythrocyte distribution width (RBC) [Entitic vol] 43.5 fL 35.1-43.9 [facility] Work Phone: Erythrocyte distribution width (RBC) [Ratio] 14.3 % 11.6-14.6 [facility] Work Phone: Immature granulocytes/100 WBC (Bld) 0.600 % 0.0-0.9 [facility] Work Phone: Comment on above: IG% - Immature Granu locytes (promyelocytes, myelocytes and metamyelocytes) > 1% indicates that a LEFT SHIFT is Present. MCH (RBC) [Entitic mass] 27.5 pg 27.0-32.0 [facility] Work Phone: Nucleated RBC/100 WBC (Bld) [Ratio] 0 % 0-5 [facility] Work Phone: MCHC Auto (RBC) [Mass/Vol]on 03-03-2022 MCHC (RBC) [Mass/Vol] 32.9 g/dL 32-36 [facility] Work Phone: Comment on above: Delta: 29.6 on 03/02-1026 No Panel Informationon 03-03 Estimated Creatinine Clearance Calc 111.61 ml/min [facility] Work Phone: Estimated GFR (MDRD) Amer 150 mL/min >60 [facility] Work Phone: Comment on above: GFR Calc Estimated GFR (MDRD) Non-Af Amer 124 mL/min >60 [facility] Work Phone: Comment on above: Non- GFR Calc Platelets bldon 03-03-2022 Platelets (Bld) [#/Vol] 345 10*3/uL 150-450 [facility] Work Phone: Serum or plasma calcium koby urement (mass/volume)on 03-03-2022 Calcium [Mass/Vol] 7.9 mg/dL 8.5-10.1 [facility] Work Phone: Serum or plasma creatinine m easurement (mass/volume)on 03-03-2022 Creatinine [Mass/Vol] 0.81 mg/dL 0.70-1.30 [facility] Work Phone: Comment on above: The validity of the calculated GFR & GFRAA in patients over 70 years has not been determined. Clinical correlation is essential. Serum or plasma urea nitroge n measurement (mass/volume)on 03-03-2022 Urea nitrogen [Mass/Vol] 12 mg/dL 7-18 [facility] Work Phone: Thin prep Papanicolaou smear with manual screeningon 03-03-2022 Thin prep Papanicolaou smear with manual screening 8 5-15 [facility] Work Phone: Absolute lymphocyte counton 2022 Lymphocytes Auto (Unsp spec) [#/Vol] 4.87 10*3/uL 0.83-4.51 [facility] Work Phone: Basophil percentageon 2021 Basophil percentage 0 SEEN /hpf 0-5 [facility] Work Phone: Basophil percentage 9.1 mg/dL 2.5-4.9 [facility] Work Phone: Comment on above: Critical Result(s) C alled at: 11:23:45 2022 by: Renita Butt to Jd. Results read back by same. Basophils/100 WBC (Bld) 0.9 % 0-1 [facility] Work Phone: Bilirubin [Mass/Vol] 0.60 mg/dL 0.20-1.00 [facility] Work Phone: Comment on above: For patients on eltr ombopag therapy, use of Dimension [facility] TBIL is not recommended. Chloride [Moles/Vol] 86 mmol/L 98-107 [facility] Work Phone: Eosinophils/100 WBC (Bld) 0.8 % 0-5 [facility] Work Phone: Glucose [Mass/Vol] 852 mg/dL 74-106 [facility] Work Phone: Comment on above: Critical Result(s) C alled at: 11:23:45 2022 by: Renita Butt to Jd. Results read back by same.Glucose result greater than or equal to 200 mg/dLsuggests DIABETES MELLITUS per A.D.A. criteria. Neutrophils (Bld) [#/Vol] 11.8 10*3/uL 2.0-7.7 [facility] Work Phone: Neutrophils/100 WBC (Bld) 64.6 % 47-70 [facility] Work Phone: Potassium [Moles/Vol] 5.2 mmol/L 3.5-5.1 [facility] Work Phone: Protein [Mass/Vol] 9.0 g/dL 6.4-8.2 [facility] Work Phone: Sodium [Moles/Vol] 128 mmol/L 136-145 [facility] Work Phone: WBC (Bld) [#/Vol] 18.3 10*3/uL 4.4-11.0 [facility] Work Phone: Bilirubin Test strip Ql (U)o n 2022 Bilirubin Ql (U) Negative Negative [facility] Work Phone: Blood erythrocytes count (nu mber/volume)on 2022 RBC (Bld) [#/Vol] 6.11 10*6/uL 4.6-6.2 [facility] Work Phone: Blood hemoglobin measurement (mass/volume)on 2022 Hemoglobin (Bld) [Mass/Vol] 16.6 g/dL 13.0-16.5 [facility] Work Phone: Blood lymphocytes/100 leukoc yteson 2022 Lymphocytes/100 WBC (Bld) 26.6 % 19-41 [facility] Work Phone: Blood monocytes/100 leukocyt eson 2022 Monocytes/100 WBC (Bld) 5.5 % 0-10 [facility] Work Phone: Blood platelet mean volumeon 2022 Platelet mean volume (Bld) [Entitic vol] 10.7 fL 6.2-12.0 [facility] Work Phone: Determination of erythrocyte mean corpuscular volume (MCV)on 2022 MCV (RBC) [Entitic vol] 91.7 fL 80-94 [facility] Work Phone: Hematocrit Auto (Bld) [Volum e fraction]on 2022 Hematocrit (Bld) [Volume fraction] 56.0 % 40-54 [facility] Work Phone: Ketones Test strip Ql (U)on 2022 Ketones Ql (U) 150 mg/dl Negative [facility] Work Phone: Comment on above: CRITICAL VALUE VERIF IED. CALLED TO ODETTE MCADAMS RN (ICU)03/02/22 1845 Ney Navarro.RESULTS READ BACK BY SAME . CRITICAL VALUE *H Laboratory - Chemistry and C hemistry - challengeon 2022 ALP [Catalytic activity/Vol] 288 U/L 45-117 [facility] Work Phone: ALT [Catalytic activity/Vol] 62 U/L 16-61 [facility] Work Phone: CK [Catalytic activity/Vol] 44 U/L 39-308 [facility] Work Phone: CO2 [Moles/Vol] 10.0 mmol/L 21.0-32.0 [facility] Work Phone: Globulin (S) [Mass/Vol] 4.9 g/dL 2.2-4.2 [facility] Work Phone: Magnesium [Mass/Vol] 2.6 mg/dL 1.6-2.6 [facility] Work Phone: Urea nitrogen/Creatinine [Mass ratio] 17.3 mg/mg 10-20 [facility] Work Phone: Laboratory - Hematology and Cell countson 2022 Erythrocyte distribution width (RBC) [Entitic vol] 47.6 fL 35.1-43.9 [facility] Work Phone: Erythrocyte distribution width (RBC) [Ratio] 14.2 % 11.6-14.6 [facility] Work Phone: Immature granulocytes/100 WBC (Bld) 1.600 % 0.0-0.9 [facility] Work Phone: Comment on above: IG% - Immature Granu locytes (promyelocytes, myelocytes and metamyelocytes) > 1% indicates that a LEFT SHIFT is Present. MCH (RBC) [Entitic mass] 27.2 pg 27.0-32.0 [facility] Work Phone: Nucleated RBC/100 WBC (Bld) [Ratio] 0 % 0-5 [facility] Work Phone: MCHC Auto (RBC) [Mass/Vol]on 2022 MCHC (RBC) [Mass/Vol] 29.6 g/dL 32-36 [facility] Work Phone: Mucus LM Ql (Urine sed)on Mucus Ql (Urine sed) 0 SEEN /hpf [facility] Work Phone: Nitrite Test strip Ql (U)on 2022 Nitrite Ql (U) Negative Negative [facility] Work Phone: No Panel Informationon 03-02 Estimated Creatinine Clearance Calc 60.37 ml/min [facility] Work Phone: Estimated GFR (MDRD) Amer 67 mL/min >60 [facility] Work Phone: Comment on above: GFR Calc Estimated GFR (MDRD) Non-Af Amer 56 mL/min >60 [facility] Work Phone: Comment on above: Non- GFR Calc Platelets bldon 2022 Platelets (Bld) [#/Vol] 518 10*3/uL 150-450 [facility] Work Phone: Protein Test strip Ql (U)on 2022 Protein Ql (U) 30 mg/dl Negative [facility] Work Phone: Serum or plasma acetone koby urement (mass/volume)on 2022 Acetone [Mass/Vol] MODERATE NEG [facility] Work Phone: Serum or plasma albumin koby urement (mass/volume)on 2022 Albumin [Mass/Vol] 4.1 g/dL 3.2-5.0 [facility] Work Phone: Serum or plasma albumin/glob ulin mass ratioon 2022 Albumin/Globulin [Mass ratio] 0.8 {ratio} 0.9-2.4 [facility] Work Phone: Serum or plasma calcium koby urement (mass/volume)on 2022 Calcium [Mass/Vol] 9.4 mg/dL 8.5-10.1 [facility] Work Phone: Serum or plasma creatinine m easurement (mass/volume)on 2022 Creatinine [Mass/Vol] 1.62 mg/dL 0.70-1.30 [facility] Work Phone: Comment on above: The validity of the calculated GFR & GFRAA in patients over 70 years has not been determined. Clinical correlation is essential. Serum or plasma urea nitroge n measurement (mass/volume)on 2022 Urea nitrogen [Mass/Vol] 28 mg/dL 7-18 [facility] Work Phone: Squamous epithelial cells de tection in urine sediment by light microscopyon 2022 Epithelial cells.squamous LM Ql (Urine sed) 0 SEEN /hpf 0-5 [facility] Work Phone: Thin prep Papanicolaou smear with manual screeningon 2022 Thin prep Papanicolaou smear with manual screening 16 U/L 15-37 [facility] Work Phone: Thin prep Papanicolaou smear with manual screening 32 5-15 [facility] Work Phone: Urine blood detectionon 07- RBC Ql (U) Negative Negative [facility] Work Phone: RBC Ql (U) 0 SEEN /hpf 0-5 [facility] Work Phone: Urine clarityon 2022 Clarity (U) Clear Clear [facility] Work Phone: Urine coarse granular cast d etectionon 2022 Coarse Granular Casts LM Ql (Urine sed) 5-10 SEEN /lpf 0-5 /lpf [facility] Work Phone: Urine color determinationon 2022 Color (U) Yellow [facility] Work Phone: Urine glucose detectionon Glucose Ql (U) 1000 mg/dl Normal [facility] Work Phone: Urine leukocyte esterase det ection by dipstickon 2022 Leukocyte esterase Test strip Ql (U) Negative Negative [facility] Work Phone: Urine pHon 2022 pH (U) 5.0 [pH] 5.0 - 8.0 [facility] Work Phone: Urine sediment bacteria coun t by microscopy (number/high power field)on 2022 Bacteria LM.HPF (Urine sed) [#/Area] 1 /[HPF] None Seen [facility] Work Phone: Urine specific gravity measu rementon 2022 Specific gravity (U) [Rel density] 1.025 1.002-1.03 0 [facility] Work Phone: Urobilinogen Auto test strip Ql (U)on 2022 Urobilinogen Ql (U) Normal mg/dl Normal [facility] Work Phone: CT HEAD W/O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 Chloride 106 mmol/L Invalid Interpretation Code 98-107 [facility] Work Phone: CO2 19.0 mmol/L Low 21.0-32.0 [facility] Work Phone: Creatinine 161.59 mL/min Invalid Interpretation Code [facility] Work Phone: Creatinine 0.52 mg/dL Low 0.70-1.30 [facility] Work Phone: eGFR (non-black) 218 mL/min/{1.73_m2} Invalid Interpretation Code >60 [facility] Work Phone: eGFR (non-black) 263 mL/min/{1.73_m2} Invalid Interpretation Code >60 [facility] Work Phone: Glucose 334 mg/dL High 70-110 [facility] Work Phone: Potassium 4.3 mmol/L Invalid Interpretation Code 3.5-5.1 [facility] Work Phone: Sodium 135 mmol/L Low 136-145 [facility] Work Phone: Urea nitrogen 6 mg/dL Low 7-18 [facility] Work Phone: Lab Report: Bedside Glucoseo n 01-14-2017 Glucose 325 mg/dL High 70-110 [facility] Work Phone: Glucose 429 mg/dL High 70-110 [facility] Work Phone: Lab Report: CBC W/Diff, Auto matedon 01-14-2017 Basophils/100 leukocytes 0.3 % Invalid Interpretation Code 0-1 [facility] Work Phone: Eosinophils/100 leukocytes 0.9 % Invalid Interpretation Code 0-5 [facility] Work Phone: Erythrocytes (RBC) 3.44 10*6/uL Low 4.6-6.2 [facility] Work Phone: Hematocrit (HCT) 29.2 % Low 40-54 [facility] Work Phone: Hemoglobin (HGB) 9.4 g/dL Low 13.0-16.5 [facility] Work Phone: immature granulocytes, percentage of total cells, blood 0.200 % Invalid Interpretation Code 0.0-0.9 [facility] Work Phone: Lymphocytes 1.72 X10 3/UL Invalid Interpretation Code 0.83-4.51 [facility] Work Phone: Lymphocytes/100 leukocytes 29.7 % Invalid Interpretation Code 19-41 [facility] Work Phone: MCH 27.3 pg Invalid Interpretation Code 27.0-32.0 [facility] Work Phone: MCHC 32.2 G/GL Invalid Interpretation Code 32-36 [facility] Work Phone: MCV 84.9 fL Invalid Interpretation Code 80-94 [facility] Work Phone: Monocytes/100 leukocytes 11.7 % High 0-10 [facility] Work Phone: neutrophil count, blood 3.3 X10 3/UL Invalid Interpretation Code 2.0-7.7 [facility] Work Phone: Neutrophils/100 leukocytes 57.2 % Invalid Interpretation Code 47-70 [facility] Work Phone: Platelets 206 10*3/mm3 Invalid Interpretation Code 150-450 [facility] Work Phone: PMV by Perry 11.0 fL Invalid Interpretation Code 6.2-12.0 [facility] Work Phone: RDW-CA 13.0 % Invalid Interpretation Code 11.6-14.6 [facility] Work Phone: red blood cell distribution width, size density 39.2 fL Invalid Interpretation Code 35.1-43.9 [facility] Work Phone: WBC (Leukocytes) 5.8 10*3/uL Invalid Interpretation Code 4.4-11.0 [facility] Phone: Lab Report: Hemoglobin A1con 01-14-2017 HbA1c 11.6 % High 4.2-6.3 [facility] Work Phone: Lab Report: Lactic Acidon Lactate 1.8 mmol/L Invalid Interpretation Code 0.4-2.0 [facility] Work Phone: Lactate 6.0 mmol/L Critically high 0.4-2.0 [facility] [employer] [facility] Work Phone: Lactate 4.8 mmol/L Critically high 0.4-2.0 [facility] Work Phone: Lab Report: Alex R Staph Aureus DNA by PCRon 01-14-2017 INR in blood by coagulation Negative Invalid Interpretation Code Negative [facility] Phone: Lab Report: MRSA Wound DNA b y PCRon 01-14-2017 GE use only - for [employer] import when terms are not otherwise specified Negative Invalid Interpretation Code Negative [facility] Work Phone: SA RESULT Negative Negative [facility] Work Phone: Office Visiton 12-10-2016 Documentation of current medications (procedure) Done Invalid Interpretation Code [facility] Work Phone: Fall risk assessment No Invalid Interpretation Code [facility] Work Phone: Protein mass conc Done [facility] Work Phone: Chart Maintenance: Basaglaro n 11-12-2016 Urine, microalbumin mg/dL Invalid Interpretation Code [facility] Work Phone: Lab Report: Hemoglobin A1con 11-12-2016 HbA1c 12.0 % High 4.2-6.3 [facility] Work Phone: Lab Report: Microalb:Creat R atio,Random URon 11-12-2016 ACR (microalbumin/creatinin e) ratio Test not performed mg/g CRE Invalid Interpretation Code <30 mg/g CRE [facility] Work Phone: Albumin/Creatinine DL <= 20 mg/L Ratio (U) Test not performed mg/g CRE <30 mg/g CRE [facility] Work Phone: Urine, creatinine 38.10 mg/dL Invalid Interpretation Code NO RANGE EST. [facility] Work Phone: Urine, microalbumin < 5.0 mg/L Invalid Interpretation Code NO RANGE EST. [facility] Work Phone: Office Visit: Diabetes- [facility].on 11-12-2016 Adolescent depression screening assessment Adolescent depression screening assessment Invalid Interpretation Code [facility] Work Phone: Adult depression screening assessment Adolescent depression screening assessment [facility] Work Phone: Documentation of current medications (procedure) Done Invalid Interpretation Code [facility] Work Phone: Fall risk assessment No Invalid Interpretation Code [facility] Work Phone: Protein mass conc yes [facility] Work Phone: Smoking cessation education (procedure) yes Invalid Interpretation Code [facility] Work Phone: Tobacco smoking status NHIS Current Invalid Interpretation Code [facility] Work Phone: Tobacco smoking status NHIS Current every day smoker [facility] Work Phone: Tobacco use [facility] Current every day smoker Invalid Interpretation Code [facility] Work Phone: Influenza virus A and B and SARS-CoV-2 (COVID-19) Ag panel - Upper respiratory specim SARS-CoV-2 & FLU Antigen (Rapid) SARS-CoV-2 (COVID 19) [facility] Work Phone: Laboratory - Microbiology an d Antimicrobial susceptibility Respiratory pathogens DNA and RNA 12b panel LM+probe (Unsp spec) [facility] Work Phone: Throat Streptococcus pyogene s antigen detection by immunofluorescence S. pyogenes Ag IF Ql (Throat) [facility] Work Phone: Vital Signs Date Time Vital Sign Value Performing Clinician Facility 01-26-2025 17:27-0400 Body temperature 97.8 [degF] Dr. Keisha Handy DO Work Phone: [facility] 01-26-2025 17:27-0400 Diastolic blood pressure 95 mm[Hg] Dr. Keisha Handy DO Work Phone: [facility] 01-26-2025 17:27-0400 Heart rate 97 /min Dr. Keisha Handy DO Work Phone: [facility] 01-26-2025 17:27-0400 Respiratory rate 14 /min Dr. Keisha Handy DO Work Phone: [facility] 01-26-2025 17:27-0400 SaO2% (BldA) [Mass fraction] 99 % Dr. Keisha Handy DO Work Phone: [facility] 01-26-2025 17:27-0400 Systolic blood pressure 125 mm[Hg] Dr. Keisha Handy DO Work Phone: 4(252)683-436261 [place] [address] 01-26-2025 11:24-0400 Body height 182.[address] Keisha Handy DO Work Phone: 5(961)663-826461 [place] [address] 01-26-2025 11:24-0400 Body mass index (BMI) [Ratio] 18.6 kg/m2 Dr. Keisha Handy DO Work Phone: 0(463)572-528061 [place] [address] 01-26-2025 11:24-0400 Body weight 62.[address] Keisha Handy DO Work Phone: 2(345)873-354761 [place] [address] 12-14-2024 02:20-0400 Body temperature 98.4 [degF] Dr. Keisha Handy DO Work Phone: 0(906)454-580031 [place] [address] 12-14-2024 02:20-0400 Diastolic blood pressure 68 mm[Hg] Dr. Keisha Handy DO Work Phone: 8(842)100-700961 [place] [address] 12-14-2024 02:20-0400 Heart rate 113 /min Dr. Keisha Handy DO Work Phone: 3(418)984-697461 [place] [address] 12-14-2024 02:20-0400 Respiratory rate 14 /min Dr. Keisha Handy DO Work Phone: 0(624)818-185061 [place] [address] 12-14-2024 02:20-0400 SaO2% (BldA) [Mass fraction] 96 % Dr. Keisha Handy DO Work Phone: 8(538)174-871361 [place] [address] 12-14-2024 02:20-0400 Systolic blood pressure 112 mm[Hg] Dr. Keisha Handy DO Work Phone: 8(231)051-652461 [place] [address] 12-13-2024 21:12-0400 Body height 187.[address] Keisha Handy DO Work Phone: 9(024)728-519861 [place] [address] 12-13-2024 21:12-0400 Body mass index (BMI) [Ratio] 14.6 kg/m2 Dr. Keisha Handy DO Work Phone: 0(025)058-313661 [place] [address] 12-13-2024 21:12-0400 Body weight 51.[address] Keisha Handy DO Work Phone: [facility] 12-12-2024 12:36-0400 Body mass index (BMI) [Ratio] 18.6 kg/m2 Dr. Keisha Handy DO Work Phone: 2(546)420-136361 [place] [address] 12-12-2024 12:36-0400 Body temperature 97 [degF] Dr. Keisha Handy DO Work Phone: 3(143)573-947361 [place] [address] 12-12-2024 12:36-0400 Body weight 62.[address] Keisha Handy DO Work Phone: 7(865)185-365761 [place] [address] 12-12-2024 12:36-0400 Diastolic blood pressure 82 mm[Hg] Dr. Keisha Handy DO Work Phone: 6(173)041-637961 [place] [address] 12-12-2024 12:36-0400 Heart rate 116 /min Dr. Keisha Handy DO Work Phone: 4(447)291-969261 [place] [address] 12-12-2024 12:36-0400 Respiratory rate 18 /min Dr. Keisha Handy DO Work Phone: 9(877)126-449761 [place] [address] 12-12-2024 12:36-0400 SaO2% (BldA) [Mass fraction] 100 % Dr. Keisha Handy DO Work Phone: 1(614)199-638161 [place] [address] 12-12-2024 12:36-0400 Systolic blood pressure 126 mm[Hg] Dr. Keisha Handy DO Work Phone: 0(630)407-864961 [place] [address] 11-11-2024 19:18-0400 Body temperature 97.8 [degF] Dr. Keisha Handy DO Work Phone: 4(156)785-000561 [place] [address] 11-11-2024 19:18-0400 Diastolic blood pressure 86 mm[Hg] Dr. Keisha Handy DO Work Phone: 1(802)944-471061 [place] [address] 11-11-2024 19:18-0400 Heart rate 102 /min Dr. Keisha Handy DO Work Phone: 3(729)971-799561 [place] [address] 11-11-2024 19:18-0400 Respiratory rate 18 /min Dr. Keisha Handy DO Work Phone: 2(925)529-467161 [place] [address] 11-11-2024 19:18-0400 SaO2% (BldA) [Mass fraction] 98 % Dr. Keisha Handy DO Work Phone: 8(339)923-041961 [place] [address] 11-11-2024 19:18-0400 Systolic blood pressure 128 mm[Hg] Dr. Keisha Handy DO Work Phone: 7(369)532-725661 [place] [address] 11-11-2024 17:46-0400 Body height 182.[address] Keisha Handy DO Work Phone: 6(359)673-691361 [place] [address] 11-11-2024 17:46-0400 Body mass index (BMI) [Ratio] 18.7 kg/m2 Dr. Keisha Handy DO Work Phone: 6(073)368-063161 [place] [address] 11-11-2024 17:46-0400 Body weight 62.[address] Keisha Handy DO Work Phone: 8(481)550-013661 [place] [address] 10-19-2024 05:19-0400 Body temperature 97.8 [degF] Dr. Keisha Handy DO Work Phone: 9(237)342-459961 [place] [address] 10-19-2024 05:19-0400 Diastolic blood pressure 81 mm[Hg] Dr. Keisha Handy DO Work Phone: 3(132)732-620261 [place] [address] 10-19-2024 05:19-0400 Heart rate 95 /min Dr. Keisha Handy DO Work Phone: 4(012)429-780261 [place] [address] 10-19-2024 05:19-0400 Respiratory rate 16 /min Dr. Keisha Handy DO Work Phone: 4(969)271-659161 [place] [address] 10-19-2024 05:19-0400 SaO2% (BldA) [Mass fraction] 99 % Dr. Keisha Handy DO Work Phone: 1(038)375-117361 [place] [address] 10-19-2024 05:19-0400 Systolic blood pressure 127 mm[Hg] Dr. Keisha Handy DO Work Phone: [facility] 10-19-2024 00:09-0400 Body height 182.[address] Keisha Handy DO Work Phone: [facility] 10-19-2024 00:09-0400 Body mass index (BMI) [Ratio] 19.5 kg/m2 Dr. Keisha Handy DO Work Phone: [facility] 10-19-2024 00:09-0400 Body weight 65.[address] Keisha Handy DO Work Phone: [facility] 01-04-2023 00:24-0400 Diastolic blood pressure 81 mm[Hg] MD Bright [facility] 01-04-2023 00:24-0400 Heart rate 87 /min MD Bright [facility] 01-04-2023 00:24-0400 Respiratory rate 17 /min MD Bright [facility] 01-04-2023 00:24-0400 SaO2% (BldA) [Mass fraction] 100 % MD Bright [facility] 01-04-2023 00:24-0400 Systolic blood pressure 117 mm[Hg] MD Bright [facility] 01-03-2023 22:18-0400 Body height 182.88 cm MD Bright [facility] 01-03-2023 22:18-0400 Body mass index (BMI) [Ratio] 19.9 kg/m2 MD Bright [facility] 01-03-2023 22:18-0400 Body temperature 96.6 [degF] MD Bright [facility] 01-03-2023 22:18-0400 Body weight 66.7 kg MD Bright [facility] 12-09-2022 21:44-0400 Heart rate 110 /min MD Bright [facility] 12-09-2022 21:44-0400 Respiratory rate 18 /min MD Bright [facility] 12-09-2022 20:08-0400 SaO2% (BldA) [Mass fraction] 99 % MD Bright [facility] 12-09-2022 18:04-0400 Body mass index (BMI) [Ratio] 20.4 kg/m2 MD Deangelo Noel [facility] 12-09-2022 18:04-0400 Body weight 62.7 kg MD Deangelo Noel [facility] 12-09-2022 17:39-0400 Body height 175.26 cm MD Bright [facility] 12-09-2022 17:39-0400 Body temperature 97.9 [degF] MD Bright [facility] 12-09-2022 17:39-0400 Diastolic blood pressure 63 mm[Hg] MD Bright [facility] 12-09-2022 17:39-0400 Systolic blood pressure 94 mm[Hg] MD Bright [facility] 12-03-2022 22:45-0400 Diastolic blood pressure 84 mm[Hg] MD Bright [facility] 12-03-2022 22:45-0400 Heart rate 104 /min MD Bright [facility] 12-03-2022 22:45-0400 Respiratory rate 18 /min MD Bright [facility] 12-03-2022 22:45-0400 SaO2% (BldA) [Mass fraction] 97 % MD Bright [facility] 12-03-2022 22:45-0400 Systolic blood pressure 127 mm[Hg] MD Bright [facility] 12-03-2022 20:03-0400 Body height 172.72 cm MD Deangelo Noel [facility] 12-03-2022 20:03-0400 Body mass index (BMI) [Ratio] 22 kg/m2 MD Bright [facility] 12-03-2022 20:03-0400 Body temperature 97.9 [degF] MD Deangelo Noel [facility] 12-03-2022 20:03-0400 Body weight 65.7 kg MD Bright [facility] 11-17-2022 14:00-0400 Heart rate 115 /min MD Deangelo Noel [facility] 11-17-2022 14:00-0400 Respiratory rate 13 /min MD Bright [facility] 11-17-2022 14:00-0400 SaO2% (BldA) [Mass fraction] 97 % MD Bright [facility] 11-17-2022 00:52-0400 Body mass index (BMI) [Ratio] 18.1 kg/m2 MD Bright [facility] 11-17-2022 00:52-0400 Body weight 60.7 kg MD Bright [facility] 11-17-2022 00:10-0400 Body height 182.88 cm MD Bright [facility] 11-17-2022 00:10-0400 Body temperature 97.9 [degF] MD Bright [facility] 11-17-2022 00:10-0400 Diastolic blood pressure 62 mm[Hg] MD Bright [facility] 11-17-2022 00:10-0400 Systolic blood pressure 120 mm[Hg] MD Bright [facility] 10-13-2022 06:21-0500 Diastolic blood pressure 90 mm[Hg] MD Bright [facility] 10-13-2022 06:21-0500 Systolic blood pressure 129 mm[Hg] MD Bright [facility] 10-13-2022 03:49-0500 Body height 162.56 cm MD Bright [facility] 10-13-2022 03:49-0500 Body mass index (BMI) [Ratio] 24.4 kg/m2 MD Bright [facility] 10-13-2022 03:49-0500 Body temperature 97.7 [degF] MD Bright [facility] 10-13-2022 03:49-0500 Body weight 64.6 kg MD Bright [facility] 10-13-2022 03:49-0500 Heart rate 120 /min MD Bright [facility] 10-13-2022 03:49-0500 Respiratory rate 14 /min MD Bright [facility] 10-13-2022 03:49-0500 SaO2% (BldA) [Mass fraction] 99 % MD Bright [facility] 08-24-2022 23:11-0500 Diastolic blood pressure 82 mm[Hg] MD Bright [facility] 08-24-2022 23:11-0500 Heart rate 120 /min MD Bright [facility] 08-24-2022 23:11-0500 SaO2% (BldA) [Mass fraction] 99 % MD Bright [facility] 08-24-2022 23:11-0500 Systolic blood pressure 126 mm[Hg] MD Bright [facility] 08-24-2022 21:15-0500 Body temperature 98 [degF] MD Bright [facility] 08-24-2022 21:15-0500 Respiratory rate 16 /min MD Bright [facility] 08-24-2022 21:12-0500 Body height 162.56 cm [facility] 08-24-2022 21:12-0500 Body mass index (BMI) [Ratio] 24.7 kg/m2 MD Bright [facility] 08-24-2022 21:12-0500 Body weight 65.4 kg MD Bright [facility] 08-20-2022 14:36-0500 Body temperature 97.8 [degF] MD Bright [facility] 08-20-2022 14:36-0500 Diastolic blood pressure 77 mm[Hg] MD Bright [facility] 08-20-2022 14:36-0500 Heart rate 108 /min MD Bright [facility] 08-20-2022 14:36-0500 Respiratory rate 16 /min MD Bright [facility] 08-20-2022 14:36-0500 SaO2% (BldA) [Mass fraction] 97 % MD Bright [facility] 08-20-2022 14:36-0500 Systolic blood pressure 111 mm[Hg] MD Bright [facility] 08-20-2022 06:00-0500 Body weight 64.6 kg MD Bright [facility] 08-19-2022 09:33-0500 Body height 182.88 cm MD Bright [facility] Work Phone: 08-18-2022 15:00-0500 Inhaled oxygen flow rate 2 L/min MD Bright [facility] 08-18-2022 11:46-0500 Body mass index (BMI) [Ratio] 20.3 kg/m2 MD Bright [facility] 07-07-2022 20:35-0500 Diastolic blood pressure 93 mm[Hg] MD Bright [facility] 07-07-2022 20:35-0500 Heart rate 114 /min MD Bright [facility] 07-07-2022 20:35-0500 Respiratory rate 15 /min MD Bright [facility] 07-07-2022 20:35-0500 SaO2% (BldA) [Mass fraction] 96 % MD Bright [facility] 07-07-2022 20:35-0500 Systolic blood pressure 127 mm[Hg] MD Bright [facility] 07-07-2022 14:41-0500 Body mass index (BMI) [Ratio] 23.3 kg/m2 MD Bright [facility] 07-07-2022 14:41-0500 Body temperature 98 [degF] MD Bright [facility] 07-07-2022 14:41-0500 Body weight 69.42 kg MD Bright [facility] 07-01-2022 03:13-0500 Diastolic blood pressure 85 mm[Hg] MD Bright [facility] 07-01-2022 03:13-0500 Heart rate 135 /min MD Bright [facility] 07-01-2022 03:13-0500 Respiratory rate 16 /min MD Bright [facility] 07-01-2022 03:13-0500 SaO2% (BldA) [Mass fraction] 100 % MD Bright [facility] 07-01-2022 03:13-0500 Systolic blood pressure 123 mm[Hg] MD Bright [facility] 06-30-2022 22:31-0500 Body temperature 97.4 [degF] MD Bright [facility] 06-30-2022 22:26-0500 Body height 177.8 cm MD Bright [facility] Work Phone: 06-30-2022 22:26-0500 Body mass index (BMI) [Ratio] 23.1 kg/m2 MD Bright [facility] 06-30-2022 22:26-0500 Body weight 73.3 kg MD Bright [facility] 03-03-2022 08:30-0400 SaO2% (BldA) [Mass fraction] 98 % MD Bright [facility] Work Phone: 03-03-2022 08:00-0400 Body temperature 97.9 [degF] MD Bright [facility] Work Phone: 03-03-2022 08:00-0400 Diastolic blood pressure 67 mm[Hg] MD Bright [facility] Work Phone: 03-03-2022 08:00-0400 Heart rate 101 /min MD Bright [facility] Work Phone: 03-03-2022 08:00-0400 Respiratory rate 18 /min MD Bright [facility] Work Phone: 03-03-2022 08:00-0400 Systolic blood pressure 111 mm[Hg] MD Bright [facility] Work Phone: 03-03-2022 05:12-0400 Body weight 56.8 kg MD Bright [facility] Work Phone: 2022 15:50-0400 Body height 177.8 cm MD Bright [facility] Work Phone: 2022 12:30-0400 Body mass index (BMI) [Ratio] 17.9 kg/m2 MD Bright [facility] Work Phone: 2022 12:00-0400 Body temperature 97.7 [degF] [facility] Work Phone: 2022 12:00-0400 Diastolic blood pressure 93 mm[Hg] [facility] Work Phone: 2022 12:00-0400 Heart rate 160 /min [facility] Work Phone: 2022 12:00-0400 Respiratory rate 22 /min [facility] Work Phone: 2022 12:00-0400 SaO2% (BldA) [Mass fraction] 98 % [facility] Work Phone: 2022 12:00-0400 Systolic blood pressure 138 mm[Hg] [facility] Work Phone: 2022 10:13-0400 Body height 177.8 cm [facility] Work Phone: 2022 10:13-0400 Body mass index (BMI) [Ratio] 19.3 kg/m2 [facility] Work Phone: 2022 10:13-0400 Body weight 61.23 kg [facility] Work Phone: 01-31-2022 10:10-0400 Body height 177.8 cm [facility] Work Phone: 01-31-2022 10:10-0400 Body mass index (BMI) [Ratio] 18.6 kg/m2 [facility] Work Phone: 01-31-2022 10:10-0400 Body temperature 98 [degF] [facility] Work Phone: 01-31-2022 10:10-0400 Body weight 58.96 kg [facility] Work Phone: 01-31-2022 10:10-0400 Diastolic blood pressure 80 mm[Hg] [facility] Work Phone: 01-31-2022 10:10-0400 Heart rate 75 /min [facility] Work Phone: 01-31-2022 10:10-0400 Respiratory rate 16 /min [facility] Work Phone: 01-31-2022 10:10-0400 SaO2% (BldA) [Mass fraction] 99 % [facility] Work Phone: 01-31-2022 10:10-0400 Systolic blood pressure 92 mm[Hg] [facility] Work Phone: 01-19-2022 09:41-0400 Body mass index (BMI) [Ratio] 16.5 kg/m2 [facility] Work Phone: 01-19-2022 09:41-0400 Body temperature 97.9 [degF] [facility] Work Phone: 01-19-2022 09:41-0400 Body weight 52.16 kg [facility] Work Phone: 01-19-2022 09:41-0400 Diastolic blood pressure 70 mm[Hg] [facility] Work Phone: 01-19-2022 09:41-0400 Heart rate 106 /min [facility] Work Phone: 01-19-2022 09:41-0400 Respiratory rate 16 /min [facility] Work Phone: 01-19-2022 09:41-0400 SaO2% (BldA) [Mass fraction] 97 % [facility] Work Phone: 01-19-2022 09:41-0400 Systolic blood pressure 105 mm[Hg] [facility] Work Phone: 01-15-2017 03:55-0400 Body surface area Derived from formula 240.08 mL/min Ge Stafford MD [facility] Work Phone: 12-10-2016 16:10-0400 BP Diastolic 66 mm[Hg] Edwina Quintero NP [facility] Work Phone: 12-10-2016 16:10-0400 BP Systolic 104 mm[Hg] Edwina Quintero [employer] [facility] Work Phone: 12-10-2016 16:10-0400 Pulse (Heart Rate) 86 /min Edwina Quintero NP [facility] Work Phone: 12-10-2016 16:10-0400 Respiratory Rate 14 /min Edwina Quintero NP [facility] Work Phone: 12-10-2016 16:10-0400 Weight 67.13 kg Edwina Quintero NP [facility] Work Phone: 11-12-2016 15:36-0400 BMI (Body Mass Index) 24.79 kg/m2 Edwina Quintero NP [facility] Work Phone: 11-12-2016 15:36-0400 Body Temperature 98.01 [degF] Edwina Quintero [employer] [facility] Work Phone: 11-12-2016 15:36-0400 Body Temperature 98 [degF] Edwina Quintero [employer] [facility] Work Phone: 11-12-2016 15:36-0400 BP Diastolic 69 mm[Hg] Edwina Quintero NP [facility] Work Phone: 11-12-2016 15:36-0400 BP Systolic 105 mm[Hg] Edwina Quintero NP [facility] Work Phone: 11-12-2016 15:36-0400 BSA (Body Surface Area) 1.75 m2 Edwina Quintero NP [facility] Work Phone: 11-12-2016 15:36-0400 Height 165.1 cm Edwina Quintero NP [facility] Work Phone: 11-12-2016 15:36-0400 Pulse (Heart Rate) 90 /min [facility] Work Phone: 11-12-2016 15:36-0400 Pulse Oximetry 98 % [facility] Work Phone: 11-12-2016 15:36-0400 Respiratory Rate 14 /min [facility] Work Phone: 11-12-2016 15:36-0400 Weight 67.58 kg [facility] Work Phone: 11-12-2016 15:36-0400 Weight 67.59 kg [facility] Work Phone: Encounters Encounter Date Encounter Type Care Provider Facility Start: 02-05-2025 ambulatory Sarah L Charlotte Facility :[facility] Start: 02-05-2025 Evaluation and manag ement of inpatient No Primary Care Physician Facility:[facility] Start: 01-26-2025 End: 01-26-2025 Emergency department patient visit Dr. Keisha Handy DO Work Phone: -Emergency Department Work Phone: Start: 12-18-2024 ambulatory Zebulun Beam Facility:[facility] Start: 12-13-2024 End: 12-14-2024 Emergency department patient [...] Work Phone: Start: 10-10-2024 End: 10-10-2024 ambulatory Facility:[facility] Start: 01-03-2023 End: 01-04-2023 Emergency department patient visit MD Deangelo Noel [facility] Start: 12-09-2022 End: 12-09-2022 Emergency department patient visit MD Deangelo Noel [facility] Start: 12-03-2022 End: 12-03-2022 Emergency department patient visit MD Deangelo Noel [facility] Start: 11-17-2022 End: 11-17-2022 Emergency department patient visit MD Deangelo Noel [facility]Emergency Department Start: 10-13-2022 Non-patient / Non-visit MD Alessandra kapadia [facility] Start: 10-13-2022 End: 10-13-2022 ambulatory MD Bright [facility] Work Phone: Start: 10-13-2022 End: 10-13-2022 Patient encounter procedure MD Bright [facility] Start: 10-13-2022 End: 10-13-2022 Emergency department patient visit MD [facility] Start: 10-05-2022 Orders Only Deangelo garcía MD Work Phone: [facility] Start: 10-03-2022 Telephone encounter Deangelo canales MD Work Phone: [facility] Comment on above: Letter Start: 09-22-2022 Telephone encounter Phillip jiménez APRN.PER DIEM PHYSICAL THERAPIST ASSISTANT Work Phone: [facility] Comment on above: Appointment Start: 08-24-2022 End: 08-24-2022 Emergency [facility] Start: 08-21-2022 Refill Phillip HINOJOSA RN.PER DIEM PHYSICAL THERAPIST ASSISTANT Work Phone: [facility] Comment on above: Refill Request Start: 08-20-2022 Non-patient / Non-visit MD Deangelo Elde [facility] Start: 08-19-2022 Non-patient / Non-visit MD Deangelo Escobar [facility] Start: 08-18-2022 Non-patient / Non-visit MD Deangelo Escobar [facility] Start: 08-18-2022 End: 08-20-2022 Evaluation and management of inpatient MD [facility] 2 Start: 07-09-2022 Telephone encounter Deangelo canales MD Work Phone: [facility] Comment on above: Insurance Authorizat ion ([employer] ) Start: 07-07-2022 End: 07-07-2022 Emergency department patient visit MD [facility] Start: 07-07-2022 End: 07-07-2022 Patient encounter procedure Isaiah Caldera APRN.PER DIEM PHYSICAL THERAPIST ASSISTANT Work Phone: [facility] Comment on above: Chest pain, unspecif ied type (Primary Dx); High blood sugar APPOINTMENT CANCELLE D (Primary Dx); Uncontrolled type 1 diabetes mellitus with hypoglycemia without coma (HCC); Type I (juvenile type) diabetes mellitus without mention of complication, not stated as uncontrolled (HCC) Start: 06-30-2022 End: 07-01-2022 Emergency department patient visit MD [facility] Start: 06-11-2022 Telephone encounter Deangelo canales MD Work Phone: [facility] Comment on above: Results Start: 06-09-2022 Telephone encounter Deangelo canales MD Work Phone: [facility] Comment on above: Urgent value Start: 06-07-2022 Telephone encounter Radha Hameed APRN.PER DIEM PHYSICAL THERAPIST ASSISTANT Work Phone: [facility] Comment on above: Medication Problem Refill Request Start: 03-04-2022 Patient Outreach Meena alexandra APRN.PER DIEM PHYSICAL THERAPIST ASSISTANT Work Phone: [facility] Comment on above: Transition Of Care Start: 03-03-2022 Non-patient / Non-visit MD Deangelo Elde rbrock [facility] Inpatient Phys[facility] Start: 2022 Non-patient / Non-visit MD Deangelo lowry [facility]patient [facility] Start: 2022 End: 03-03-2022 Evaluation and management of inpatient [facility] Start: 01-31-2022 End: 01-31-2022 Emergency department patient visit [facility] Start: 01-19-2022 End: 01-19-2022 [facility] Start: 11-17-2021 ambulatory Phillip HINOJOSA RN.PER DIEM PHYSICAL THERAPIST ASSISTANT Work Phone: [facility] Comment on above: PHMA/Care Gap Outrea ch Start: 06-26-2021 Telephone encounter Deangelo canales MD Work Phone: [facility] Comment on above: Insurance Authorizat ion Start: 04-21-2018 End: 04-22-2018 Patient encounter JORGE SMITH [facility] Start: 03-20-2018 End: 03-23-2018 Evaluation and management of inpatient GLO KOENIG [facility] Start: 01-13-2018 End: 01-14-2018 Ambulatory RON [facility] Start: 12-27-2017 End: 12-27-2017 Ambulatory RON [facility] Start: 12-21-2017 End: 12-22-2017 Ambulatory RON [facility] Start: 12-17-2017 End: 12-18-2017 Ambulatory RON Rodgers TRISTAN [facility] Start: 12-17-2017 End: 12-17-2017 Ambulatory [facility] Start: 12-10-2017 End: 12-11-2017 Ambulatory [facility] Start: 11-20-2017 End: 12-06-2017 Evaluation and management of inpatient [facility] Procedures Date Procedure Procedure Detail Performing Clinician [...] Phone: Start: 11-11-[address] eKisha Handy DO Work Phone: Start: 10-19-2024 Urnls [...] 12-03-2022 Plain chest X-ray MD Lior matias Aguilarlee OLS Start: 11-17-2022 CT angiography of ch est with contrast MD Deangelo ORELLANA Start: 11-17-2022 Plain chest X-ray MD Lior matias Aguilarlee OLS Start: 10-13-2022 Plain chest X-ray MD Lior matias Aguilarlee Start: 08-18-2022 [facility] Start: 07-07-2022 Plain chest X-[facility] Start: 06-30-2022 Plain chest X-[facility] Start: 01-19-2022 Plain X-ray of tibia and fibula Start: 06-22-2018 Adult depression scr eening assessment Phillip Howe RN SURGERY ICU.PER DIEM PHYSICAL THERAPIST ASSISTANT Work Phone: Start: 11-12-2016 End: 11-12-2016 *Microalbumin, Creatine Ratio, rand urine Edwina Quintero [employer]PER[employer] Work Phone: Start: 11-12-2016 End: 11-13-2016 HbA1c Edwina Quintero [employer] SUPER[employer]OR Work Phone: Respiratory Panel (PCR) MD Alex [...] profile DTAP,TDAP,TD (8 - Td or Tdap) [facility] Start: 01-26-2025 [facility] Start: 01-26-2025 [facility] Start: 12-14-2024 [facility] Start: 12-12-2024 [facility] Start: 11-11-2024 [facility] Start: 10-19-2024 [facility] Start: 10-19-2024 [facility] Start: 08-25-2023 ANNUAL PCP TEAM CHRONIC DISEASE VISIT ANNUAL PCP TEAM CHRONIC DISEASE VISIT [facility] Start: 07-07-2023 ANNUAL PCP TEAM CHRONIC DISEASE VISIT ANNUAL PCP TEAM CHRONIC DISEASE VISIT [facility] Start: 06-09-2023 ANNUAL PCP TEAM CHRONIC DISEASE VISIT ANNUAL PCP TEAM CHRONIC DISEASE VISIT [facility] Start: 06-09-2023 Hepatitis B surface antibody level LDL CHOLESTEROL [facility] Start: 01-03-2023 [facility] Start: 12-09-2022 [facility] Start: 12-04-2022 [facility] Start: 12-03-2022 [facility] Start: 11-18-2022 [facility] Start: 11-17-2022 [facility] Start: 10-13-2022 Assay of troponin quantitative ASSAY OF TROPONIN QUANT [facility] Start: 10-13-2022 Basic metabolic panel calcium total METABOLIC PANEL TOTAL CA [facility] Start: 10-13-2022 Blood count complete auto&auto difrntl wbc COMPLETE CBC W/AUTO DIFF WBC [facility] Start: 10-13-2022 Ecg routine ecg w/least 12 lds trcg only w/o i&r ELECTROCARDIOGRAM TRACING [facility] Start: 10-13-2022 Iv infusion hydration each additional hour HYDRATE IV INFUSION ADD-ON [facility] Start: 10-13-2022 Iv infusion hydration initial 31 min-1 hour HYDRATION IV INFUSION INIT [facility] Start: 10-13-2022 Radiologic exam chest single view X-RAY EXAM CHEST 1 VIEW [facility] Start: 09-09-2022 Hemoglobin A1c/Hemoglobin.total in Blood HBA1C [facility] Start: 08-20-2022 Patient discharge [facility] Start: 08-19-2022 Care planning and problem solving actions [facility] Start: 08-19-2022 Care regimes management [facility] Start: 08-19-2022 Notification of physician [facility] Start: 08-19-2022 [facility] Start: 08-18-2022 End: 08-19-2022 [facility] Start: 08-18-2022 Ambulation without limitation [facility] Start: 08-18-2022 Assessment of risk of venous thromboembolism [facility] Start: 08-18-2022 Continuous pulse oximetry [facility] Start: 08-18-2022 End: 08-18-2022 Following clinical pathway protocol [facility] Start: 08-18-2022 Inhalation therapy procedure [facility] Start: 08-18-2022 Insertion of catheter into peripheral vein [facility] Start: 08-18-2022 Lab findings surveillance [facility] Start: 08-18-2022 Measuring intake and output [facility] Start: 08-18-2022 Notification of physician [facility] Start: 08-18-2022 Patient education [facility] Start: 08-18-2022 Patient referral to dietitian [facility] Start: 08-18-2022 Providing care according to standard [facility] Start: 08-18-2022 Vital signs measurements [facility] Start: 08-18-2022 Admission procedure [facility] Start: 08-09-2022 DEPRESSION ASSESSMENT DEPRESSION ASSESSMENT [facility] Start: 07-07-2022 [facility] Start: 06-30-2022 [facility] Start: 06-25-2022 ANNUAL PCP TEAM CHRONIC DISEASE VISIT ANNUAL PCP TEAM CHRONIC DISEASE VISIT [facility] Start: 04-09-2022 Influenza vaccination INFLUENZA (#1) [facility] Start: 03-03-2022 Patient discharge [facility] Work Phone: Start: 03-03-2022 Care regimes management [facility] Work Phone: Start: 03-03-2022 Notification of physician [facility] Work Phone: Start: 03-03-2022 [facility] Work Phone: Start: 03-03-2022 [facility] Work Phone: Start: 2022 [facility] Work Phone: Start: 2022 Application of intermittent pneumatic compression device [facility] Work Phone: Start: 2022 Assessment of risk of venous thromboembolism [facility] Work Phone: Start: 2022 Continuous pulse oximetry [facility] Work Phone: Start: 2022 End: 2022 Following clinical pathway protocol [facility] Work Phone: Start: 2022 Insertion of catheter into peripheral vein [facility] Work Phone: Start: 2022 Lab findings surveillance [facility] Work Phone: Start: 2022 Measuring intake and output [facility] Work Phone: Start: 2022 Notification of physician [facility] Work Phone: Start: 2022 Patient education [facility] Work Phone: Start: 2022 Patient referral to dietitian [facility] Work Phone: Start: 2022 Providing care according to standard [facility] Work Phone: Start: 2022 Vital signs measurements [facility] Work Phone: Start: 2022 [facility] Work Phone: Start: 2022 Blood chemistry [facility] Work Phone: Start: 2022 Verification routine [facility] Work Phone: Start: 2022 Admission procedure [facility] Work Phone: Start: 2022 Urinalysis complete panel - Urine [facility] Work Phone: Start: 2022 End: 2022 [facility] Work Phone: Start: 2022 [facility] Work Phone: Start: 01-08-2022 Hepatitis B screening URINE ALBUMIN:CREATININE RATIO [facility] Start: 01-08-2022 Hepatitis B surface antibody level LDL CHOLESTEROL [facility] Start: 11-17-2021 End: 01-17-2022 ALBUMIN/CREAT RATIO RND UR ALBUMIN/CREAT RATIO RND UR Lab Routine Uncontrolled type 1 diabetes mellitus with hypoglycemia without coma (HCC) Expected: 11/17/2021, Expires: 01/17/2022 [facility] Work Phone: Comment on above: Expected: 11/17/2021, Expires: 2 Start: 08-09-2021 DEPRESSION ASSESSMENT DEPRESSION ASSESSMENT [facility] Start: 04-10-2021 Hemoglobin A1c/Hemoglobin.total in Blood HBA1C [facility] Start: 09-22-2020 3 comp foot exam completed DIABETIC FOOT EXAM [facility] Start: 06-22-2019 Adult depression screening assessment DEPRESSION SCREENING [facility] Start: 05-11-2017 Hepatitis C antibody, confirmatory test DILATED RETINAL EXAM [facility] Start: 03-15-2017 End: 03-15-2017 Appointment Appointment [facility] Work Phone: Start: 03-15-2017 End: 03-15-2017 Appointment Appointment [facility] Work Phone: Start: 12-10-2016 End: 12-10-2016 Appointment Appointment [facility] Work Phone: Start: 12-10-2016 End: 12-12-2016 *CMP Complete Metabolic Panel *CMP Complete Metabolic Panel [facility] Work Phone: Start: 12-10-2016 End: 12-12-2016 HbA1c *HgA1C [facility] Work Phone: Start: 12-10-2016 End: 12-12-2016 Lipid panel [AGGREGATE] *Lipid Profile [facility] Work Phone: Start: 12-10-2016 End: 12-12-2016 Office/outpatient visit, est, level 3 [id number] Vst-Est Level III [facility] Work Phone: Start: 11-12-2016 End: 11-12-2016 *CMP Complete Metabolic Panel *CMP Complete Metabolic Panel [facility] Work Phone: Start: 11-12-2016 End: 11-12-2016 *Microalbumin, Creatine Ratio, rand urine *Microalbumin, Creatine Ratio, rand urine [facility] Work Phone: Start: 11-12-2016 End: 11-13-2016 HbA1c *HgA1C [facility] Work Phone: Start: 11-12-2016 End: 11-12-2016 Lipid panel [AGGREGATE] *Lipid Profile [facility] Work Phone: Start: 2015 HEPATITIS C SCREENING HEPATITIS C SCREENING [facility] Start: 2015 HIV SCREENING HIV SCREENING [facility] Start: 10-10-2013 PNEUMOCOCCAL (2 - PPSV23 if available, else PCV20) PNEUMOCOCCAL (2 - PPSV23 if available, else PCV20) [facility] Start: 10-10-2013 PNEUMOCOCCAL (2 - PPSV23 or PCV20) PNEUMOCOCCAL (2 - PPSV23 or PCV20) [facility] Start: 10-02-2013 HPV VACCINE (3 - Male 3-dose series) HPV VACCINE (3 - Male 3-dose series) [facility] Start: 2013 ONE PNEUMOVAX PRIOR TO AGE 65 ONE PNEUMOVAX PRIOR TO AGE 65 [facility] Start: 12-05-2012 PNEUMOCOCCAL (2 - PPSV23 if available, else PCV20) PNEUMOCOCCAL (2 - PPSV23 if available, else PCV20) [facility] Start: 2011 PEDS TO ADULT TRANSITION ANNUAL ASSESSMENT PEDS TO ADULT TRANSITION ANNUAL ASSESSMENT [facility] Start: 2009 PEDS TO ADULT TRANSITION INITIAL DISCUSSION PEDS TO ADULT TRANSITION INITIAL DISCUSSION [facility] Start: 2007 MENINGOCOCCAL B: Consider based on risk (1 of 2 - Risk Bexsero 2-dose series) MENINGOCOCCAL B: Consider based on risk (1 of 2 - Risk Bexsero 2-dose series) [facility] Start: 2002 COVID-19 VACCINE (1) COVID-19 VACCINE (1) [facility] Start: 1997 COVID-19 VACCINE (#1) COVID-19 VACCINE (#1) [facility] Anion gap measurement [facility] Work Phone: BUN/Creatinine ratio [facility] Work Phone: Calcium [Mass/volume ] in Serum or Plasma [facility] Work Phone: Carbon dioxide, tota l [Moles/volume] in Serum or Plasma [facility] Work Phone: Chloride [Moles/volu me] in Serum or Plasma [facility] Work Phone: Creatinine [Moles/volume] in Serum or Plasma [facility] Work Phone: Glucose [Mass/volume ] in Serum or Plasma [facility] Work Phone: Measurement of renal function [facility] Work Phone: Patient Education [facility] Work Phone: Patient referral [facility] Work Phone: Potassium [Moles/volume] in Serum or Plasma [facility] Work Phone: Sodium [Moles/volume ] in Serum or Plasma [facility] Work Phone: Urea nitrogen [Mass/volume] in Serum or Plasma [facility] Work Phone: [facility] Immunizations Immunization Date Immunization Notes Care Provider Franco kiran 06-09-2022 influenza, injectabl e, quadrivalent, contains preservative Deangelo Noel MD Work Phone: [facility] 06-25-2021 influenza, injectabl e, quadrivalent, contains preservative Phillip Charles RN SURGERY ICU.PER DIEM PHYSICAL THERAPIST ASSISTANT Work Phone: [facility] 10-01-2020 tetanus toxoid, reduced diphtheria toxoid, and acellular pertussis vaccine, adsorbed Phillip Charles RN SURGERY ICU.PER DIEM PHYSICAL THERAPIST ASSISTANT Work Phone: [facility] 06-28-2019 influenza, injectabl e, quadrivalent, contains preservative Phillip Charles RN SURGERY ICU.PER DIEM PHYSICAL THERAPIST ASSISTANT Work Phone: [facility] 11-20-2017 tetanus toxoid, reduced diphtheria toxoid, and acellular pertussis vaccine, adsorbed [facility] 05-18-2017 influenza, injectabl e, quadrivalent, preservative free Dr. Keisha Handy DO Work Phone: [facility] 05-18-2017 influenza, seasonal, injectable [facility] 08-28-2015 influenza, injectabl e, quadrivalent, preservative free Phillip Charles RN SURGERY ICU.PER DIEM PHYSICAL THERAPIST ASSISTANT Work Phone: [facility] 08-09-2015 influenza, injectabl e, quadrivalent, preservative free Dr. Keisha Handy DO Work Phone: [facility] 08-09-2015 influenza, seasonal, injectable [facility] 06-13-2014 influenza, seasonal, injectable Phillip Charles RN SURGERY ICU.PER DIEM PHYSICAL THERAPIST ASSISTANT Work Phone: [facility] 06-01-2013 human papilloma viru s vaccine, quadrivalent Phillip Charles RN SURGERY ICU.PER DIEM PHYSICAL THERAPIST ASSISTANT Work Phone: [facility] Work Phone: 06-01-2013 influenza virus vaccine, unspecified formulation Phillip Charles RN SURGERY ICU.PER DIEM PHYSICAL THERAPIST ASSISTANT Work Phone: [facility] Work Phone: 06-01-2013 Meningococcal, MCV4, unspecified conjugate formulation(groups A, C, Y and W-135) Phillip Charles RN SURGERY ICU.PER DIEM PHYSICAL THERAPIST ASSISTANT Work Phone: [facility] Work Phone: 10-10-2012 human papilloma viru s vaccine, quadrivalent Phillip Charles RN SURGERY ICU.PER DIEM PHYSICAL THERAPIST ASSISTANT Work Phone: [facility] 10-10-2012 pneumococcal conjuga te vaccine, 13 valent Phillip Charles RN SURGERY ICU.PER DIEM PHYSICAL THERAPIST ASSISTANT Work Phone: [facility] 06-03-2010 influenza virus vaccine, unspecified formulation Phillip Charles RN SURGERY ICU.PER DIEM PHYSICAL THERAPIST ASSISTANT Work Phone: [facility] 01-02-2009 Meningococcal, MCV4, unspecified conjugate formulation(groups A, C, Y and W-135) Phillip Charles RN SURGERY ICU.PER DIEM PHYSICAL THERAPIST ASSISTANT Work Phone: [facility] Work Phone: 01-02-2009 tetanus toxoid, reduced diphtheria toxoid, and acellular pertussis vaccine, adsorbed Phillip Charles RN SURGERY ICU.PER DIEM PHYSICAL THERAPIST ASSISTANT Work Phone: [facility] Work Phone: 06-17-2007 influenza virus vaccine, unspecified formulation Phillip Charles RN SURGERY ICU.PER DIEM PHYSICAL THERAPIST ASSISTANT Work Phone: [facility] Work Phone: 06-28-2003 diphtheria, tetanus toxoids and pertussis vaccine Phillip Charles RN SURGERY ICU.PER DIEM PHYSICAL THERAPIST ASSISTANT Work Phone: [facility] Work Phone: 06-28-2003 poliovirus vaccine, inactivated Phillip Charles RN SURGERY ICU.[facility] Work Phone: [facility] Work Phone: 04-24-2002 hepatitis B vaccine, pediatric or pediatric/adolescent dosage Phillip Charles RN SURGERY ICU.[facility] Work Phone: [facility] Work Phone: 04-24-2002 measles, mumps and rubella virus vaccine Phillip Charles RN SURGERY ICU.[facility] Work Phone: [facility] Work Phone: 03-18-2000 diphtheria, tetanus toxoids and pertussis vaccine Phillip Charles RN SURGERY ICU.[facility] Work Phone: [facility] Work Phone: 03-18-2000 haemophilus influenz ae type b vaccine, HbOC conjugate Phillip Charles RN SURGERY ICU.[facility] Work Phone: [facility] Work Phone: 03-18-2000 hepatitis B vaccine, pediatric or pediatric/adolescent dosage Phillip Charles RN SURGERY ICU.[facility] Work Phone: [facility] Work Phone: 03-18-2000 poliovirus vaccine, inactivated Phillip Charles RN SURGERY ICU.PER DIEM PHYSICAL THERAPIST ASSISTANT Work Phone: [facility] Work Phone: 06-10-1998 measles, mumps and rubella virus vaccine Phillip Charles RN SURGERY ICU.PER DIEM PHYSICAL THERAPIST ASSISTANT Work Phone: [facility] Work Phone: 1997 diphtheria, tetanus toxoids and pertussis vaccine Phillip Charles RN SURGERY ICU.[facility] Work Phone: [facility] Work Phone: 1997 haemophilus influenz ae type b vaccine, HbOC conjugate Phillip Charles RN SURGERY ICU.[facility] Work Phone: [facility] Work Phone: 1997 diphtheria, tetanus toxoids and pertussis vaccine Phillip Charles RN SURGERY ICU.PER DIEM PHYSICAL THERAPIST ASSISTANT Work Phone: [facility] Work Phone: 1997 haemophilus influenz ae type b vaccine, HbOC conjugate Phillip Charles RN SURGERY ICU.PER DIEM PHYSICAL THERAPIST ASSISTANT Work Phone: [facility] Work Phone: 1997 poliovirus vaccine, inactivated Phillip Charles RN SURGERY ICU.[facility] Work Phone: [facility] Work Phone: 1997 diphtheria, tetanus toxoids and pertussis vaccine Phillip Charles RN SURGERY ICU.[facility] Work Phone: [facility] Work Phone: 1997 haemophilus influenz ae type b vaccine, HbOC conjugate Phillip Charles RN SURGERY ICU.[facility] Work Phone: [facility] Work Phone: 1997 hepatitis B vaccine, pediatric or pediatric/adolescent dosage Phillip Charles RN SURGERY ICU.[facility] Work Phone: [facility] Work Phone: 1997 poliovirus vaccine, inactivated Phillip Charles RN SURGERY ICU.[facility] Work Phone: [facility] Work Phone: Payers Date Payer Category Payer Self-pay [id number] 2024 Medicaid [id number] 2021 Medicaid [employer] [id number] 2021-[facility] [phone] [place] [id number] Medicaid [id number] 2021 Medicaid [id number] Medicaid [id number] Medicaid MEDICAID [id number] Unknown [id number] Unknown [id number] Unknown [id number] Unknown [id number] Unknown [id number] Unknown [id number] Unknown [id number] Unknown [id number] Unknown [id number] Social History Date Type Detail Facility Start: 06-22-2018 End: 06-09-2022 Tobacco smoking status LAIS Never smoked tobacco [facility] History of tobacco use Cigarette Smoker [facility] History of tobacco use Cigar Smoker [facility] Start: 06-22-2018 End: 06-09-2022 Cigarettes smoked current (pack per day) - Reported 1 [facility] Start: 06-22-2018 End: 06-09-2022 Tobacco use and exposure User of smokeless tobacco [facility] History of tobacco use Chews Tobacco [facility] Start: 09-18-2021 End: 08-25-2022 Alcohol intake Current drinker of alcohol (finding) [facility] Start: 04-12-2018 History SDOH Alcohol Comment once a year [facility] Start: 05-11-2018 Education 13 [facility] Start: 08-28-2015 End: 06-09-2022 Tobacco Comment dad smokes inside and outside. Dad trying to quit. patient chews and smokes also [facility] Start: 1997 Sex Assigned At Not on file [facility] Start: 08-19-2021 End: 06-09-2022 Exposure to SARS-CoV-2 (event) Not sure [facility] Start: 01-31-2022 End: 01-03-2023 Tobacco smoking status NHIS Unknown if ever smoked [facility] Start: 11-25-2020 None [facility] Start: 11-25-2020 With Family [facility] Start: 11-25-2020 Cigarettes;Chew [facility] Start: 1995 Sex Assigned At Male W [facility] Start: 02-21-2022 End: 03-03-2022 Exposure to SARS-CoV-2 (event) Unable to assess [facility] Work Phone: Start: 10-19-2024 End: 01-26-2025 Tobacco smoking status NHIS Current some day smoker [facility] Start: 10-19-2024 End: 11-11-2024 Sex Male (finding) [facility] Medical Equipment Procedure Code Equipment Code Equipment Original Text Equipment Identifier Dates INSULIN PEN NEEDLE [id number] Start: 01-16-2014 End: 07-07-2022 Comment on above: [...] 12-23-2017 Pen Needle, Diabetic (Comfort Ez Pen Henley) 31 gauge x 5/16" needle Start: 12-22-2017 End: 12-23-2017 Pen Needle, Diabetic (Comfort Ez Pen Henley) 31 gauge x 5/16" needle Start: 12-23-2017 End: 12-23-2017 Blood Sugar Diagnostic (Freestyle Lite Strips) strip Start: 12-23-2017 End: 12-23-2017 Pen Needle, Diabetic (Comfort Ez Pen Henley) 31 gauge x 5/16" needle Start: 12-22-2017 End: 12-23-2017 Pen Needle, Diabetic (Comfort Ez Pen Henley) 31 gauge x 5/16" needle Start: 12-23-2017 End: 12-23-2017 Blood Sugar Diagnostic (Freestyle Lite Strips) strip Start: 12-23-2017 End: 12-23-2017 Pen Needle, Diabetic (Comfort Ez Pen Henley) 31 gauge x 5/16" needle Start: 12-22-2017 End: 12-23-2017 Pen Needle, Diabetic (Comfort Ez Pen Henley) 31 gauge x 5/16" needle Start: 12-23-2017 End: 12-23-2017 Blood Sugar Diagnostic (Freestyle Lite Strips) strip Start: 12-23-2017 End: 12-23-2017 Pen Needle, Diabetic (Comfort Ez Pen Henley) 31 gauge x 5/16" needle Start: 12-22-2017 End: 12-23-2017 Pen Needle, Diabetic (Comfort Ez Pen Henley) 31 gauge x 5/16" needle Start: 12-23-2017 End: 12-23-2017 Blood Sugar Diagnostic (Freestyle Lite Strips) strip Start: 12-23-2017 End: 12-23-2017 Pen Needle, Diabetic (Comfort Ez Pen Henley) 31 gauge x 5/16" needle Start: 12-22-2017 End: 12-23-2017 Pen Needle, Diabetic (Comfort Ez Pen Henley) 31 gauge x 5/16" needle Start: 12-23-2017 End: 12-23-2017 Blood Sugar Diagnostic (Freestyle Lite Strips) strip Start: 12-23-2017 End: 12-23-2017 Pen Needle, Diabetic (Comfort Ez Pen Henley) 31 gauge x 5/16" needle Start: 12-22-2017 End: 12-23-2017 Pen Needle, Diabetic (Comfort Ez Pen Henley) 31 gauge x 5/16" needle Start: 12-23-2017 End: 12-23-2017 Blood Sugar Diagnostic (Freestyle Lite Strips) strip Start: 12-23-2017 End: 12-23-2017 Pen Needle, Diabetic (Comfort Ez Pen Henley) 31 gauge x 5/16" needle Start: 12-22-2017 End: 12-23-2017 Pen Needle, Diabetic (Comfort Ez Pen Henley) 31 gauge x 5/16" needle Start: 12-23-2017 End: 12-23-2017 Blood Sugar Diagnostic (Freestyle Lite Strips) strip Start: 12-23-2017 End: 12-23-2017 Pen Needle, Diabetic (Comfort Ez Pen Henley) 31 gauge x 5/16" needle Start: 12-22-2017 End: 12-23-2017 Pen Needle, Diabetic (Comfort Ez Pen Henley) 31 gauge x 5/16" needle Start: 12-23-2017 End: 12-23-2017 Blood Sugar Diagnostic (Freestyle Lite Strips) strip Start: 12-23-2017 End: 12-23-2017 Pen Needle, Diabetic (Comfort Ez Pen Henley) 31 gauge x 5/16" needle Start: 12-22-2017 End: 12-23-2017 Pen Needle, Diabetic (Comfort Ez Pen Henley) 31 gauge x 5/16" needle Start: 12-23-2017 End: 12-23-2017 Blood Sugar Diagnostic (Freestyle Lite Strips) strip Start: 12-23-2017 End: 12-23-2017 Pen Needle, Diabetic (Comfort Ez Pen Henley) 31 gauge x 5/16" needle Start: 12-22-2017 End: 12-23-2017 Pen Needle, Diabetic (Comfort Ez Pen Henley) 31 gauge x 5/16" needle Start: 12-23-2017 End: 12-23-2017 Blood Sugar Diagnostic (Freestyle Lite Strips) strip Start: 12-23-2017 End: 12-23-2017 Pen Needle, Diabetic (Comfort Ez Pen Henley) 31 gauge x 5/16" needle Start: 12-22-2017 End: 12-23-2017 Pen Needle, Diabetic (Comfort Ez Pen Henley) 31 gauge x 5/16" needle Start: 12-23-2017 End: 12-23-2017 Blood Sugar Diagnostic (Freestyle Lite Strips) strip Start: 12-23-2017 End: 12-23-2017 Pen Needle, Diabetic (Comfort Ez Pen Henley) 31 gauge x 5/16" needle Start: 12-22-2017 End: 12-23-2017 Pen Needle, Diabetic (Comfort Ez Pen Henley) 31 gauge x 5/16" needle Start: 12-23-2017 End: 12-23-2017 Insulin Syringe-Needle U-100 [Insulin Syringe-Needle U-100 0.5 Ml 31 Gauge X 5/16"] (Insulin Syringe-Needle U-100 0.5 Ml 31 Gauge X ) 0.5 mL 31 gauge x 5/16" syringe Start: 10-19-2024 Blood Sugar Diagnostic (Freestyle Lite Strips) strip Start: 12-23-2017 End: 12-23-2017 Pen Needle, Diabetic (Comfort Ez Pen Henley) 31 gauge x 5/16" needle Start: 12-22-2017 End: 12-23-2017 Pen Needle, Diabetic (Comfort Ez Pen Henley) 31 gauge x 5/16" needle Start: 12-23-2017 End: 12-23-2017 Insulin Syringe-Needle U-100 [Insulin Syringe-Needle U-100 0.5 Ml 31 Gauge X 5/16"] (Insulin Syringe-Needle U-100 0.5 Ml 31 Gauge X ) 0.5 mL 31 gauge x 5/16" syringe Start: 10-19-2024 Blood Sugar Diagnostic (Freestyle Lite Strips) strip Start: 12-23-2017 End: 12-23-2017 Pen Needle, Diabetic (Comfort Ez Pen Henley) 31 gauge x 5/16" needle Start: 12-22-2017 End: 12-23-2017 Pen Needle, Diabetic (Comfort Ez Pen Henley) 31 gauge x 5/16" needle Start: 12-23-2017 End: 12-23-2017 Insulin Syringe-Needle U-100 (Trueplus Insulin) 0.5 mL 31 gauge x 5/16" syringe Start: 10-19-2024 Blood Sugar Diagnostic (Freestyle Lite Strips) strip Start: 12-23-2017 End: 12-23-2017 Pen Needle, Diabetic (Comfort Ez Pen Henley) 31 gauge x 5/16" needle Start: 12-22-2017 End: 12-23-2017 Pen Needle, Diabetic (Comfort Ez Pen Henley) 31 gauge x 5/16" needle Start: 12-23-2017 End: 12-23-2017 Insulin Syringe-Needle U-100 (Trueplus Insulin) 0.5 mL 31 gauge x 5/16" syringe Start: 10-19-2024 Blood Sugar Diagnostic (Freestyle Lite Strips) strip Start: 12-23-2017 End: 12-23-2017 Pen Needle, Diabetic (Comfort Ez Pen Henley) 31 gauge x 5/16" needle Start: 12-22-2017 End: 12-23-2017 Pen Needle, Diabetic (Comfort Ez Pen Henley) 31 gauge x 16" needle Start: 12-23-2017 End: 12-23-2017 Goals Date Patient Goal Desired Activity /State Functional Status Date Assessment Result Facility 08-20-2022 Functional status Up ad abhishek;Bathroom Priv ilege [facility] Work Phone: 03-03-2022 Functional status Ambulates [facility] Work Phone: Mental Status Date Assessment Result Facility 01-26-2025 Cognitive function Voice/Name [facility] Work Phone: 10-19-2024 Cognitive function Voice/Name [facility] Work Phone: 01-03-2023 Cognitive function Voice/Name [facility] Work Phone: 12-09-2022 Cognitive function Level Of Cons ciousness Awake;Alert;Appropriate;Follow s Commands [facility] Work Phone: 12-03-2022 Cognitive function Voice/Name [facility] Work Phone: 11-17-2022 Cognitive function Voice/Name [facility] Work Phone: 10-13-2022 Cognitive function Level Of Cons ciousness Awake;Alert;Appropriate;Follow s Commands [facility] Work Phone: 08-20-2022 Cognitive function Voice/Name [facility] Work Phone: 07-07-2022 Cognitive function Level Of Cons ciousness Awake;Alert;Appropriate;Follow s Commands [facility] Work Phone: 06-30-2022 Cognitive function Voice/Name [facility] Work Phone: 03-03-2022 Cognitive function Voice/Name [facility] Work Phone: 2022 Cognitive function Level Of Cons ciousness Awake;Drowsy;Inappropriate [facility] Work Phone: Clinical Notes 05-29-2010 to 01-26-2025 Note Date & Type Note Facility 01-26-2025 Radiology Diagnostic study note [facility] Imaging Services [address] [place] [address] Chest PA and Lateral MR#: [id number] Acct: [id number] Name: UNA COSBY Rep #: [id number] : 1995 M 29 From: Roberto Babin MD PCP: Care Physician,No Primary Status: REG ER Study:Chest PA and Lateral Date of Exam: 01/26/25 Exam# [id number] Ordering Dr: Beverly Wharton PROCEDURE: CHEST PA AND LATERAL 01/26/2025 REASON FOR EXAM: CHEST PAIN TECHNIQUE: CHEST PA AND LATERAL COMPARISON: Prior study dated October 19, 2024. FINDINGS: Hardware: EKG electrodes. Heart: Unremarkable Mediastinum: The mediastinal contour is unremarkable. Lungs: The lungs are clear. Bones: The bones are unremarkable. RAD/Chest PA and Lateral IMPRESSION: NO ACUTE FINDINGS. Reading Location: [place] [address] CC: ZAIN Baker; No Primary Care Physician ~ Fountain Vending Mechanic: Signed [facility] 12-14-2024 Discharge summary [facility] 12-13-2024 Discharge summary Note Date/Time December 14, 2024 2:13am [facility] Medical Records Department [address] [place] [address] Emergency Department Summary 12/13/24 MR#: [id number] Acct: [id number] Name: UNA COSBY Rep #:[id number] : 1995 29 From: Juan Rivas MD [...] he cannot keep anything down all day. 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 [...] % (Auto) 53.8 Lymph % (Auto) 33.9 Kidder % (Auto) 8.1 Eos % (Auto) 3.3 [...] Clarity Clear Urine pH 7.0 Ur Specific [place] 1.005 Urine Protein 30 H Urine Glucose [...] (Auto) Neut % (Auto) Lymph % (Auto) Kidder % (Auto) Eos % (Auto) Baso % (Auto) Absolute Neuts (auto) Absolute Lymphs (auto) Nucleated RBC % Sodium 136 Potassium 3.6 Chloride 103 Carbon Dioxide 24.0 Anion Gap 9 BUN 10 Creatinine 0.64 L Estim Creat Clear Calc 126.32 Est GFR (MDRD) Non-Af 133 BUN/Creatinine Ratio 16.2 Glucose 275 H Calcium 7.8 b-Hydroxybutyric mmol/L Urine Color Urine Clarity Urine pH Ur Specific [place] Urine Protein Urine Glucose (UA) Urine Ketones [...] (Auto) Neut % (Auto) Lymph % (Auto) Kidder % (Auto) Eos % (Auto) Baso % (Auto) Absolute Neuts (auto) Absolute Lymphs (auto) Nucleated RBC % Sodium Potassium Chloride Carbon Dioxide Anion Gap BUN Creatinine Estim Creat Clear Calc Est GFR (MDRD) Non-Af BUN/Creatinine Ratio Glucose Calcium b-Hydroxybutyric mmol/L Urine Color Urine Clarity Urine pH Ur Specific [place] Urine Protein Urine Glucose (UA) Urine Ketones [...] 1-2 Days if not improving Print Language: Hungarian Disposition Disposition: Home, Self Care What to do if you have Problems For any increased pain, shortness of breath, bleeding, nausea or vomiting, chestpain, or any unexpected problems, contact your Primary Care Provider. Call [facility] ([phone]) or report to the closest Emergency Room. Call 911 if necessary. 12/14/24212 <Electronically signed by Juan Rivas MD> Cosigner Signature (if applicable): CC: No Primary Care Physician ~ Signed [facility] Work Phone: 1(766) 427-610903-13-2025 Discharge summary [facility] Medical Records Department [address] [place] [address] Emergency Department Summary 10/19/24 MR#: [id number] Acct: [id number] Name: UNA COSBY Rep #:[id number] : 1995 29 From: Keisha Maldonado PCP: [...] complaints or concerns reported at this time. 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 Reading Location: [facility] Rhythm Strip Rhythm Strip: Sinus Tach Rate: [...] workup was largely normal with no findings podiatric assistant with heart attack or other acute cardiac/heart process Print Language: Hungarian Disposition Disposition: Home, Self Care What to do if you have Problems For any increased pain, shortness of breath, bleeding, nausea or vomiting, chestpain, or any unexpected problems, contact your Primary Care Provider. Call [facility] ([phone]) or report tothe closest Emergency Room. Call 911 if necessary. 10/19/24 0516 Cosigner Signature (if applicable): CC: No Primary Care Physician ~ Signed [facility]03-13-2025 Radiology Diagnostic study note [facility] Imaging Services [address] [place] [address] Chest PA and Lateral MR#: [id number] Acct: [id number] Name: UNA COSBY Rep #: [id number] : 1995 M 29 From: Damian Massey MD PCP: Dr. Deangelo Noel MD Status: RI E ER Study:Chest PA and Lateral Date of Exam: 10/19/24 Exam# [id number] Ordering Dr: Danielle Handy DO PROCEDURE: CHEST PA AND LATERAL REASON FOR EXAM: CHEST PAIN TECHNIQUE: PA and lateral views of the chest. COMPARISON: 02/15/2023 FINDINGS: The lungs are clear. The cardiac and mediastinal contours are within limits. The visualized osseousstructures appear within limits. RAD/Chest PA and Lateral IMPRESSION: No evidence of acute disease. Reading Location: [id number] CC: Dr. Keisha Handy DO; Dr. Deangelo Noel MD ~ Fountain Vending Mechanic: Signed [facility]05-28-[address] Zartae [facility] January 04, 2023 12:28am Note Date/Time January 03, 2023 11:04 pm [facility] Medical Records Department [address] [place] [address] Emergency Department Summary 01/03/23 MR#: [id number] Acct: [id number] Name: UNA COSBY Rep #:[id number] : 1995 27 From: Darren Maldonado PCP: [...] 45.8 L Lymph % (Auto) 42.3 H Kidder % (Auto) 7.8 Eos % (Auto) 3.2 [...] asinus tachycardia with a rate of 117. RI interval, QRS interval, and QTc intervals were all normal. [place] was normal. There are no acute ST [...] your Primary Care Provider. Call [facility] ([phone]) or report to the closest Emergency Room. Call 911 if necessary. 01/04/23 002 <Electronically signed by Darren Zarate DO> Cosigner Signature (if applicable): CC: Dr. Deangelo Noel MD ~ Signed [facility] Work Phone: 1(398) 817-145404-27-[address] Calvillo [facility] December 03, 2022 11:22pm Note Date/Time December 03, 2022 9:2 1pm [facility] Medical Records Department [address] [place] [address] Emergency Department Summary 12/03/22 MR#: [id number] Acct: [id number] Name: UNA COSBY Rep #:[id number] : 1995 27 From: Edgar Calvillo DO [...] Denies drug use. No history of DVT/PE. [facility] Medical History Anxiety Depression H/O fracture of [...] % (Auto) 62.3 Lymph % (Auto) 26.9 Kidder % (Auto) 8.0 Eos % (Auto) 2.0 [...] IMPRESSION: Negative CTA chest. Electronically Signed: Ted Dawson MD at 22:33 EDT , Discharge Plan [...] your Primary Care Provider. Call [facility] ([phone]) or report to the closest Emergency Room. Call 911 if necessary. 12/03/222321 <Electronically signed by Edgar Calvillo DO> Cosigner Signature (if applicable): CC: Dr. Deangelo Noel MD ~ Signed [facility] Work Phone: 1(730) 997-308002-27-2023 Miscellaneous Notes* Telephone Encounter - Lilly Sutherland MA - 10/05/2022 10:01 AM EST Patient notified and voiced understanding. Lilly Sutherland MA Letter taken to [facility] records. Lilly Sutherland MA * Telephone Encounter - Phillip Howe APRN.PER DIEM PHYSICAL THERAPIST ASSISTANT - 10/05/2022 9:45 AM EST Letter printed. [...] the pt is a pt at the [facility] -letter must be within the last 4 years -letter must be signed and dated by doctor or staff member There is no PCP listed under the pt but has been seen by Dr. Noel's in the past. Please call pt with any information. [facility]23 Miscellaneous Notes* Telephone Encounter - Rajwinder [...] medicine. Phillip Howe APRN.CNP documented in [facility]Det[facility]01-16-2023 Miscellaneous Notes* Telephone Encounter - Phillip [...] Give along with SSI coverage Phillip Howe APRN.CNP * Telephone Encounter - Rajwinder Rosales LPN [...] advise. Rajwinder Rosales LPN documented in [facility]Det[facility]12-01-2022 Miscellaneous Notes* Telephone Encounter - Parvin Hannah Ma - 07/09/2022 2:05 PM EST PA received from pharmacy but when accessing it through [facility] state PA not needed. Did verifywith pharmacy medication goes through with no issue an is covered. Parvin Hannah Ma documented in this encounterDet[facility]11-29-2022 History of Present illness Narrative* Phillip Howe APRN.ANNA - 07/07/2022 2:00 PM EST Patient came to appointment today. He was in the [facility] 1 1/2 hours ago with complaints of chest pain, shortness of breath and "lungs filling up with fluids". Had been out of his insulin for a few days. He was triaged by a provider in [facility] and sent to the ER. I discussed [...] meals. Give along with SSI coverage Insulin Henley, Disposable, (BD ULTRAFINE III MINI PEN) 31 gauge x 3/16" 100 Each 11 Sig: as directed for insulin injections 3 times a day Insulin Syringe-Needle U-100 (BD INSULIN SYRINGE ULTRAFINE) 0.3 mL 31 gauge x 5/16" 100 Each 11 Sig: Use 4 times daily and prn Phillip Howe APRN.ANNA documented in this [facility]Det[facility]11-29-2022 History of Present illness Narrative* Isaiah Caldera APRN.ANNA - 07/07/2022 12:09 PM EST Patient triaged at [facility]. States has not taken insulin for few days/out of medicine. Reports"lungs are filling up with fluid" and reports constant chest pain. I will refer to ER. Mildly ill appearing but no distress. documented in this encounterDetw[facility]11-04-2022 Miscellaneous Notes* Telephone Encounter - Meri [...] planned Deangelo Noel MD documented in this encounterDet[facility]11-01-2022 Miscellaneous Notes* Telephone Encounter - Deangelo [...] name and birthdate: Yes Call received from [facility] at 4:33 PM to report an urgent value for glucose with a result of 555. Dr. Noel was notified of the result at 4:34PM. Marcy Ponce Lpn documented in this encounterDetwiler [facility]11-01-2022 Miscellaneous Notes* Telephone Encounter - Phillip Howe APRN.ANNA - 06/09/2022 10:53 AM EDT The following approved medication requests have been transmitted electronically. Requested Prescriptions Pending Prescriptions Disp Refills Insulin Henley, Disposable, (BD ULTRAFINE III MINI PEN) 31 [...] means (for example, phone, fax) Phillip Howe APRN.ANNA * Telephone Encounter - Sabrina Sousa Ma - 06/09/2022 10:42 AM EDT All of these were refilled today except the needles and syringes. Sabrina Sousa Ma * Telephone Encounter - Sindy Alex Maykel Dietz - 06/07/2022 10:47 AM EDT Patient has [...] meals. Give along with SSI coverage Insulin Henley, Disposable, (BD ULTRAFINE III MINI PEN) 31 [...] advise. Sindy Brar Pss documented in this encounterDetw[facility]10-30-2022 Miscellaneous Notes* Telephone Encounter - Radha Hameed APRN.CNP - 06/07/2022 11:09 AM EDT Medications reordered today, needs appointment for further refills. Radha Hameed APRN.PER DIEM PHYSICAL THERAPIST ASSISTANT documented in this encounterDetwiler [facility] Hospital07-27-2022 History of Present illness Narrative* Rajwinder Rosales LPN - 03/04/2022 9:29 AM EDT TRANSITION CARE MANAGEMENT (TCM) INITIAL CONTACT [facility] Provider Action/FYI: Unable to reach Pt. [...] records from recent hospitalization: documented in this encounterDetwiler [facility]04-12-2022 History of Present illness Narrative* Sabrina [...] Care Gap or Scheduling/Wellness visits Payer: Payor: [place] / Plan: [place]ICA[place] / Product Type: Medicaid / Care [...] remove name from PCP field. Phillip Howe APRN.ANNA documented in this encounterDetwiler [facility]11-29-2021 Miscellaneous Notes* Telephone Encounter - Phillip [...] 07/01. Patricia Ordoñez LPN documented in this encounterDetwiler [facility]10-21-2010 History of Past illness Narrative* Problem Noted Date Resolved Date Diabetes mellitus type 1 with ketoacidosis 05/2905/29/2010 documented as of this encounter (statuses as of 11/18/2021) [facility] of Past illness Narrative* Problem Noted Date Resolved Date Diabetes mellitus type 1 with ketoacidosis 05/2905/29/2010 documented as of this encounter (statuses as of 12/09/2021) [facility] of Past illness Narrative* Problem Noted Date Resolved Date Diabetes mellitus type 1 with ketoacidosis 05/2905/29/2010 documented as of this encounter (statuses as of 04/06/2022) [facility] of Past illness Narrative* Problem Noted Date Resolved Date Diabetes mellitus type 1 with ketoacidosis 05/2905/29/2010 documented as of this encounter (statuses as of 06/07/2022) [facility] of Past illness Narrative* Problem Noted Date Resolved Date Diabetes mellitus type 1 with ketoacidosis 05/2905/29/2010 documented as of this encounter (statuses as of 06/09/2022) [facility] of Past illness Narrative* Problem Noted Date Resolved Date Diabetes mellitus type 1 with ketoacidosis 05/2905/29/2010 documented as of this encounter (statuses as of 06/09/2022) [facility] of [facility] illness Narrative* Problem Noted Date Resolved Date Diabetes mellitus type 1 with ketoacidosis 05/2905/29/2010 documented as of this encounter (statuses as of 06/12/2022) [facility] illness Narrative* Problem Noted Date Resolved Date Diabetes mellitus type 1 with ketoacidosis 05/2905/29/2010 documented as of this encounter (statuses as of 07/07/2022) [facility] illness Narrative* Problem Noted Date Resolved Date Diabetes mellitus type 1 with ketoacidosis 05/2905/29/2010 documented as of this encounter (statuses as of 07/07/2022) [facility] Narrative* Problem Noted Date Resolved Date Diabetes mellitus type 1 with ketoacidosis 05/2905/29/2010 documented as of this encounter (statuses as of 07/09/2022) [facility] Narrative* Problem Noted Date Resolved Date Diabetes mellitus type 1 with ketoacidosis 05/2905/29/2010 documented as of this encounter (statuses as of 08/24/2022) [facility] Narrative* Problem Noted Date Resolved Date Diabetes mellitus type 1 with ketoacidosis 05/2905/29/2010 documented as of this encounter (statuses as of 09/25/2022) [facility] Narrative* Problem Noted Date Resolved Date Diabetes mellitus type 1 with ketoacidosis 05/2905/29/2010 documented as of this encounter (statuses as of 10/05/2022) [facility] illness Narrative* Problem Noted Date Resolved Date Diabetes mellitus type 1 with ketoacidosis 05/2905/29/2010 documented as of this encounter (statuses as of 10/06/2022) [facility] HospitalDis[facility] summary Author Sandy Mcclain [facility] November 17, 2022 2:01am Note Date/Time November 17, 2022 1:1 8am [facility] Medical Records Department [address] [place] [address] Emergency Department Summary 11/17/22 MR#: [id number] Acct: [id number] Name: UNA COSBY Rep #:[id number] : 1995 27 From: Jimmie Palomino MD [...] Patient states he needs to see a highway design engineer. But he has not made any calls tosee them despite referrals. He states his phone only works on [employer]. I have recommended he try to use a phone at work or borrow a friend's phone to make those calls as it is important that he gets in. Patient denies any travel surgery immobilization personal or family history of DVT or PE. [facility] Medical History Anxiety Depression H/O fracture of [...] excoriations on hands. He did have prior mendoza years ago. Neurologic Neurologic: Denies paresthesias Hematologic/Lymphatic [...] % (Auto) 49.8 Lymph % (Auto) 38.9 Kidder % (Auto) 7.7 Eos % (Auto) 2.8 [...] cycle. No acute ST elevation or depression. RI interval, QRS duration and QTc are normal. [...] Staff] - As soon as possible Deangelo Noel MD [Primary Care Provider] - As soon as possible What to do if you have Problems For any increased pain, shortness of breath, bleeding, nausea or vomiting, chestpain, or any unexpected problems, contact your Primary Care Provider. Call [facility] ([phone]) or report to the closest Emergency Room. Call 911 if necessary. 11/17/22 0125 <Electronically signed by Jimmie Palomino MD> Cosigner [...] applicable): cc: Deangelo Noel MD ~* Signed [facility] Work Phone: Discharge summary Author Keisha Handy [facility] Note Date/Time October 19, 2024 5:1 6am [facility] Medical Records Department [address] [facility] [place] [address] Emergency Department Summary 10/19/24 MR#: [id number] Acct: [id number] Name: UNA COSBY Rep #:[id number] : 1995 29 From: Keisha Maldonado PCP: [...] complaints or concerns reported at this time. 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 Reading Location: [facility] Rhythm Strip Rhythm Strip: Sinus Tach Rate: [...] workup was largely normal with no findings podiatric assistant with heart attack or other acute cardiac/heart process Print Language: Hungarian Disposition Disposition: Home, Self Care What to do if you have Problems For any increased pain, shortness of breath, bleeding, nausea or vomiting, chestpain, or any unexpected problems, contact your Primary Care Provider. Call [facility] ([phone]) or report to the closest Emergency Room. Call 911 if necessary. 10/19/24 0516 <Electronically signed by Keisha Handy DO> Cosigner Signature (if applicable): CC: No Primary Care Physician ~ Signed [facility] Work Phone: Evaluation note* Diagnosis Uncontrolled type 1 diabetes mellitus with hypoglycemia without coma (HCC)- [facility] Diagnosis Uncontrolled type 1 diabetes mellitus with hypoglycemia without coma (HCC) [facility] noteNo assessment information availableWKettering Health [facility] Work Phone: Evaluation note* Diagnosis Onset Date Resolution Status Acute dehydration acute Acute hyperkalemia acute FRANKLIN (acute kidney injury) ac vianca DKA, type 1 acute Hyperphosphatemia acute Noncompliance with medication regimen acute Pseudohyponatremia acute [facility] Work Phone: Evaluation note* Diagnosis Uncontrolled type 1 diabetes mellitus with hypoglycemia without coma (HCC) documented in this encounter [facility] note* Diagnosis Uncontrolled type 1 diabetes mellitus [...] spinal cord injury documented in this encounter [facility] note* Diagnosis Onset Date Resolution Status Noncompliance with medication regimen acute Acute dehydration resolved Acute hyperkalemia resolved FRANKLIN (acute kidney injury) re solved DKA, type 1 resolved Hyperphosphatemia resolved Pseudohyponatremia resolved [facility] Work Phone: Evaluation note* Diagnosis Chest pain, unspecified type- Primary High blood sugar Other abnormal glucose documented in this encounter [facility] note* Diagnosis APPOINTMENT CANCELLED- Primary Uncontrolled type 1 diabetes mellitus with hypoglycemia without coma (HCC) Type I (juvenile type) diabetes mellitus without mention of complication, not stated as uncontrolled (HCC) Type I (juvenile type) diabetes mellitus without mention of complication, not stated as uncontrolled [facility]* Diagnosis Onset Date Resolution Status FRANKLIN (acute kidney injury) ac vianca DKA (diabetic ketoacidoses) acute Hematemesis of unknown cause acute Lactic acidosis acute Noncompliance with medication regimen acute [facility] Work Phone: Evaluation note* Diagnosis Uncontrolled type 1 diabetes mellitus with hypoglycemia without coma (HCC) [facility] Diagnosis Onset Date Resolution Status Noncompliance with medication regimen acute FRANKLIN (acute kidney injury) re solved DKA (diabetic ketoacidoses) resolved Hematemesis of unknown cause resolved Lactic acidosis resolved [facility] Work Phone: Hospital Discharge instructions Additional [...] care physician for further outpatient evaluation and management.[facility] Work Phone: Hospital Discharge instructions Additional [...] workup was largely normal with no findings podiatric assistant with heart attack or other acute cardiac/heart processWK[facility] Work Phone: Hospital Discharge instructions Additional Instructions Follow-up with your PCP and return for any worsening symptoms.[facility] Work Phone: Hospital Discharge instructions Additional Instructions I am not sure what the cause of your palpitations and is. Your screening labs look normal other than very high glucose over 480. It is important you take your insulin as scheduled and make good food choices for a diabetic diet. 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 Advance Directive(s) 03/23/2018 2:01 PM Advance Directive Response Recorded Date/ Time Advance Directives No October 08 6:31pm Living Will No January 31, 2022 10:37am Power of Hoof And Shoe Inspector No January 31 10:37am Advance Directive Response Recorded Date/ Time Advance Directives No October 08 6:31pm Living Will No 2022 10:52am Power of Hoof And Shoe Inspector No March 02 10:52am Advance Directive Response Recorded Date/ Time Advance Directives No October 08 6:31pm Living Will No 2022 12:30pm Power of Hoof And Shoe Inspector No March 02 12:30pm Advance Directive Response Recorded Date/ Time Advance Directives No October 08 5:31pm Living Will No June 30, 10:32pm Power of Hoof And Shoe Inspector No June 30, 2022 10:32pm Advance Directive Response Recorded Date/ Time Advance Directives No October 08 5:31pm Living Will No August 18 11:46am Power of Hoof And Shoe Inspector No August 18, 2022 11:46am Advance Directive Response Recorded Date/ Time Advance Directives No October 08 5:31pm Living Will No August 24 9:15pm Power of Hoof And Shoe Inspector No August 24, 2022 9:15pm Advance Directive Response Recorded Date/ Time Advance Directives No October 08 5:31pm Living Will No October 13, 2022 3:59am Power of Hoof And Shoe Inspector No October 13 3:59am Advance Directive Response Recorded Date/ Time Advance Directives No October 08 6:31pm Living Will No October 13, 2022 4:59am Power of Hoof And Shoe Inspector No October 13 4:59am Advance Directive Response Recorded Date/ Time Advance Directives No October 08 6:31pm Living Will No November 17, 2022 2:01am Power of Hoof And Shoe Inspector No November 17 2:01am Advance Directive Response Recorded Date/ Time Advance Directives No October 08 6:31pm Living Will No December 03, 2022 8:34pm Power of Hoof And Shoe Inspector No December 03 8:34pm Advance Directive Response Recorded Date/ Time Advance Directives No October 08 6:31pm Living Will No December 09, 2022 6: 27pm Power of Hoof And Shoe Inspector No December 09, 2022 6:27pm Advance Directive Response Recorded Date/ Time Advance Directives No October 08 6:31pm Living Will No January 03, 2023 1 0:21pm Power of Hoof And Shoe Inspector No January 03, 2023 10:21pm Advance Directive Response Recorded Date/ Time Living Will No October 19, 2024 12:14am Power of Hoof And Shoe Inspector No October 19 12:14am Advance Directives No October 08 6:31pm Advance Directive Response Recorded Date/ Time Living Will No November 11, 2024 5:45pm Do you have a Healthcare Power of Hoof And Shoe Inspector? No November 11, 2024 5:45pm Living Will No October 19, 2024 12:14am Do you have a Healthcare Power of Hoof And Shoe Inspector? No October 19, 2024 12:14am Advance Directives No October 08 6:31pm Advance Directive Response Recorded Date/ Time Living Will No November 11, 2024 5:45pm Do you have a Healthcare Power of Hoof And Shoe Inspector? No November 11, 2024 5:45pm Do you have a Healthcare Power of Hoof And Shoe Inspector? No December 12, 2024 1:02pm Living Will No October 19, 2024 12:14am Do you have a Healthcare Power of Hoof And Shoe Inspector? No October 19, 2024 12:14am Do you have a Healthcare Power of Hoof And Shoe Inspector? No December 13, 2024 9:49pm Advance Directives No October 08 6:31pm Advance Directive Response Recorded Date/ Time Living Will No November 11, 2024 5:45pm Do you have a Healthcare Power of Hoof And Shoe Inspector? No November 11, 2024 5:45pm Do you have a Healthcare Power of Hoof And Shoe Inspector? No December 12, 2024 1:02pm Do you have a Healthcare Power of Hoof And Shoe Inspector? No January 26, 2025 12:12pm Living Will No October 19, 2024 12:14am Do you have a Healthcare Power of Hoof And Shoe Inspector? No October 19, 2024 12:14am Do you have a Healthcare Power of Hoof And Shoe Inspector? No December 13, 2024 9:49pm Advance Directives No October 08 16 6:31pm Chief Complaint and Reason for Visit [...] 09am N/V November 11, 2024 5:45 pm Chief Complaint Admit Date CHEST [...] with hypoglycemia without coma (HCC) Radha Hameed, GENIA.PER DIEM PHYSICAL THERAPIST ASSISTANT [address] [place] [address] Referral ID Status Reason Start Date Expiration Date Visits Re quested Visits Authorized [id number] Closed 1 1 Additional Source Comments (unrecognized sect ion and content) No Status Records FoundNo Status Records FoundNo Status Records FoundNo Status Records FoundNo Status Records Found INFORMATION SOURCE (unrecogn ized section and content) DATE CREATED AUTHOR 01/25/2018 [facility] DATE CREATED AUTHOR AUTHOR'S ORGANIZ ATION 05/20/2018 [facility] DATE CREATED AUTHOR AUTHOR'S ORGANIZ ATION 05/27/2018 [facility] DATE CREATED AUTHOR AUTHOR'S ORGANIZ ATION 10/12/2024 [facility] DATE CREATED AUTHOR AUTHOR'S ORGANIZ ATION 02/05/2025 [facility] Source Comments (unrecognize d section and content) In the event this informatio n is protected by the Federal Confidentiality of Alcohol and Drug Abuse Patient Records regulations: The Federal rules restrict any use of the information to criminally investigate or prosecute any alcohol or drug abuse patient.[facility] Hospital[facility] the event this information is protected by the Federal Confidentiality of Alcohol and Drug Abuse Patient Records regulations: The Federal rules restrict any use of the information to criminally investigate or prosecute any alcohol or drug abuse patient.[facility] HospitalIn the event this information is protected by the Federal Confidentiality of Alcohol and Drug Abuse Patient Records regulations: The Federal rules restrict any use of the information to criminally investigate or prosecute any alcohol or drug abuse patient.[facility] HospitalIn the event this information is protected by the Federal Confidentiality of Alcohol and Drug Abuse Patient Records regulations: The Federal rules restrict any use of the information to criminally investigate or prosecute any alcohol or drug abuse patient.[facility] HospitalIn the event this information is protected by the Federal Confidentiality of Alcohol and Drug Abuse Patient Records regulations: The Federal rules restrict any use of the information to criminally investigate or prosecute any alcohol or drug abuse patient.[facility] HospitalIn the event this information is protected by the Federal Confidentiality of Alcohol and Drug Abuse Patient Records regulations: The Federal rules restrict any use of the information to criminally investigate or prosecute any alcohol or drug abuse patient.[facility] HospitalIn the event this information is protected by the Federal Confidentiality of Alcohol and Drug Abuse Patient Records regulations: The Federal rules restrict any use of the information to criminally investigate or prosecute any alcohol or drug abuse patient.[facility] HospitalIn the event this information is protected by the Federal Confidentiality of Alcohol and Drug Abuse Patient Records regulations: The Federal rules restrict any use of the information to criminally investigate or prosecute any alcohol or drug abuse patient.[facility] HospitalIn the event this information is protected by the Federal Confidentiality of Alcohol and Drug Abuse Patient Records regulations: The Federal rules restrict any use of the information to criminally investigate or prosecute any alcohol or drug abuse patient.[facility] HospitalIn the event this information is protected by the Federal Confidentiality of Alcohol and Drug Abuse Patient Records regulations: The Federal rules restrict any use of the information to criminally investigate or prosecute any alcohol or drug abuse patient.[facility] HospitalIn the event this information is protected by the Federal Confidentiality of Alcohol and Drug Abuse Patient Records regulations: The Federal rules restrict any use of the information to criminally investigate or prosecute any alcohol or drug abuse patient.[facility] HospitalIn the event this information is protected by the Federal Confidentiality of Alcohol and Drug Abuse Patient Records regulations: The Federal rules restrict any use of the information to criminally investigate or prosecute any alcohol or drug abuse patient.[facility] HospitalIn the event this information is protected by the Federal Confidentiality of Alcohol and Drug Abuse Patient Records regulations: The Federal rules restrict any use of the information to criminally investigate or prosecute any alcohol or drug abuse patient.[facility] HospitalIn the event this information is protected by the Federal Confidentiality of Alcohol and Drug Abuse Patient Records regulations: The Federal rules restrict any use of the information to criminally investigate or prosecute any alcohol or drug abuse patient.[facility] Reason for Visit (unrecogniz ed section and content) Reason Onset Date Comments PHMA/Care Gap Outreach 11/17/2021 Reason Comments Insurance Authorization Reason Onset Date Comments Transition Of Care 03/04/2022 Reason Comments Medication Problem Reason Onset Date Comments Refill Request 06/07/2022 Reason Comments Urgent value Reason Comments Results Reason Comments Chest Pain Appointment Cancelled Reason Comments Insurance Authorization Lantus Solostar Reason Comments Refill Request Reason Comments Appointment Reason Comments Letter Care Teams (unrecognized sec tion and content) Music Supervisor Relationship Specialty Start Date End Date Deangelo Noel MD [address] [place], [place] [id number] PCP - General Family Practice 09/30/18 Fidelina Rogel RPh [address] [place], [place] [phone] Pharmacist Pharmacy 07/14/18 Darren Zarate DO [address] [place] [address] Medical Data Entry Clerk Emergency Medicine 06/04/20 Music Supervisor Relationship Specialty Start Date End Date Deangelo Noel MD [address] [place] [address] PCP - General Family Practice 09/30/18 [facility] [address] [place] [address] Pharmacist Pharmacy 07/14/18 Darren Zarate DO [address] [place] [address] Medical Data Entry Clerk Emergency Medicine 06/04/20 Music Supervisor Relationship Specialty Start Date End Date Deangelo Noel MD [address] [place] [address] PCP - General Family Practice 09/30/18 [facility] [address] [place] [address] Pharmacist Pharmacy 07/14/18 Darren Zarate DO [address] [place] [address] Medical Data Entry Clerk Emergency Medicine 06/04/20 Music Supervisor Relationship Specialty Start Date End Date Deangelo Noel MD [address] [place] [address] PCP - General Family Medicine 09/30/18 [facility] [address] [place] [address] Pharmacist Pharmacy 07/14/18 Darren Zarate DO [address] [place] [address] Medical Data Entry Clerk Emergency Medicine 06/04/20 Music Supervisor Relationship Specialty Start Date End Date Deangelo Noel MD [address] [place] [address] PCP - General Family Medicine 09/30/18 Fidelina Rogel, [facility] [address] [place] [address] Pharmacist Pharmacy 07/14/18 Darren Zarate, DO [address] [place] [address] Medical Data Entry Clerk Emergency Medicine 06/04/20 Music Supervisor Relationship Specialty Start Date End Date Deangelo Noel MD [address] [facility] [place] [address] PCP - General Family Medicine 09/30/18 PebblesFidelina ibrahim, [facility] [address] [place] [address] Pharmacist Pharmacy 07/14/18 Darren Zarate, DO [address] [place] [address] Medical Data Entry Clerk Emergency Medicine 06/04/20 Music Supervisor Relationship Specialty Start Date End Date Deangelo Noel MD [address] [place] [address] PCP - General Family Medicine 09/30/18 Fidelina Rogel, [facility] [address] [place] [address] Pharmacist Pharmacy 07/14/18 Darren Zarate, DO [address] [place] [address] Medical Data Entry Clerk Emergency Medicine 06/04/20 Music Supervisor Relationship Specialty Start Date End Date Deangelo Noel MD [address] [place] [address] PCP - General Family Medicine 09/30/18 BogotaFidelina ibrahim, [facility] [address] [place] [address] Pharmacist Pharmacy 07/14/18 Darren Zarate, DO [address] [place] [employer] [place] [phone] Medical Data Entry Clerk Emergency Medicine 06/04/20 Music Supervisor Relationship Specialty Start Date End Date Deangelo Noel MD [address] [place] [address] PCP - General Family Medicine 09/30/18 [facility] [address] [place] [address] Pharmacist Pharmacy 07/14/18 Darren Zarate DO [address] [place] [address] Medical Data Entry Clerk Emergency Medicine 06/04/20 Team Status: Active Member Role Status Dates Deangelo Noel MD Family Provider Active Deangelo Noel MD Primary Care Provider Active Team Status: Active Member Role Status Dates Deangelo Noel MD Primary Care Provider Active Dr. Keisha Handy , Emergency Provider Active Dr. Isidro Cruz MD Admit Provider, At tending Provider, Other Provider Active Team Status: Inactive Member Role Status Kevin Noel MD Primary Care Provider Active Dr. Darren Zarate DO Attending Provider, Emergency P bertha Active Team Status: Inactive Member Role Status Kevin Noel MD Primary Care Provider Active Dr. [...] Dr. Gatito Reed , Emergency Provider Active Music Supervisor Relationship Specialty Start Date End Date Phillip Howe, RN SURGERY ICU.PER DIEM PHYSICAL THERAPIST ASSISTANT [address] [place] [address] PCP - General Family Medicine 09/22/22 09/22/22 Fidelina Rogel, [facility] [address] [place] [address] Pharmacist Pharmacy 07/14/18 Darren Zarate, DO [address] [place] [address] Medical Data Entry Clerk Emergency Medicine 06/04/20 Music Supervisor Relationship Specialty Start Date End Date Fidelina Rogel, [facility] [address] [place] [address] Pharmacist Pharmacy 07/14/18 Darren Zarate, DO [address] [place] [address] Medical Data Entry Clerk Emergency Medicine 06/04/20 Music Supervisor Relationship Specialty Start Date End Date Fidelina Rogel, [facility] [address] [place] [address] Pharmacist Pharmacy 07/14/18 Darren Zarate, DO [address] [place] [address] Medical Data Entry Clerk Emergency Medicine 06/04/20 Team Status: Inactive Member [...] Darren Zarate DO Attending Provider, Emergency P rovider Active [...] Active Team Status: Active Member Role Status Deangelo ORELLANA MD Primary [...] Active Team Status: Inactive Member Role Status Dr. Deangelo Noel MD Primary Care Provider [...] Active Team Status: Active Member Role Status No Primary Care Physician Primary Care Provider Active Team Status: Inactive Member Role Status Dates Dr. Keisha Handy , Emergency Provider Active Start: October 19, 2024 End: October 19, 2024 No Primary Care Physician Primary Care Provider Active Start: October 19, 2024 End: October 19, 2024 Team Status: Inactive Member Role Status Dates Dr. Keisha Handy , Attending Provider Active Start: October 19, 2024 End: October 19, 2024 Dr. Keisha Handy , DO Emergency Provider Active Start: October 19, [...] 11, 2024 Dr. Steven Donaldson , DO Emergency Provider Activ e Start: November 11, 2024 End: November 11, 2024 Team Status: Inactive Member Role Status Dates No Primary Care Physician Primary Care Provider Active Start: November 11, 2024 End: November 11, 2024 Dr. Steven Donaldson , DO Attending Provider Activ e Start: November 11, 2024 End: November 11, 2024 Dr. Steven Donaldson , DO Referring Provider Activ e Start: November 11, 2024 End: November 11, 2024 Dr. Steven Donaldson , DO Emergency Provider Activ e Start: November [...] BE BASED ON THE PRIMARY CLINICAL RECORDS. [employer] provides no warranty or guarantee of the accuracy or completeness of information in this document.
[2025-02-05 04:42] LABS: Red Blood Cells-Urine 0-5 SEEN /hpf (0-5)
[2025-02-05 04:44] LABS: Ketone-Dipstick 150 mg/dl (Negative)
[2025-02-05 04:49] LABS: Phosphorus 4.6 mg/dL (2.7-4.5)
[2025-02-05] MEDS: Insulin Lispro 100 UNIT in 0.9% Normal Saline (100mL Bag) 99 ML CONT INF (04:59)
[2025-02-05] MEDS: Pantoprazole Sodium 40 MG in 0.9% Normal Saline (100mL MB+) 100 ML 330 MG IV (05:31)
[2025-02-05] MEDS: 0.9% Normal Saline (1000mL) 1,000 ML 150 ML IV (05:31)
[2025-02-05 05:40] LABS: Magnesium 1.9 mg/dL (1.5-2.2)
[2025-02-05 06:23] LABS: Bedside Glucose 269 mg/dL (74-106)
[2025-02-05 06:23] LABS: Bedside Glucose 308 mg/dL (74-106)
[2025-02-05 06:36] LABS: Absolute Lymphocyte Count 4.47 X10^3/uL (0.83-4.51); Absolute Neutrophil Count 6.8 X10^3/uL (2.0-7.7); Basophil# 0.08 X10^3/uL; Basophil% 0.6 % (0-1); Eosinophil# 0.55 X10^3/uL; Eosinophils% 4.2 % (0-5); Hematocrit 32.5 % (40-54); Hemoglobin 10.4 g/dL (13.0-16.5); Lymphocyte # 4.47 X10^3/ul (0.83-4.51); Lymphocyte % 34.1 % (19-41); Mean Corpuscular Hgb 24.2 pg (27.0-32.0); Mean Corpuscular Volume 75.8 fL (80-94); Mean Platelet Vol. 10.8 fl (6.2-12.0); Monocyte# 1.11 X10^3/uL; Monocyte% 8.5 % (0-10); NRBC Flagged by Analyzer 0 % (0-5); Neutrophil # 6.84 X10^3/uL (2.7-7.7); Neutrophil % 52.3 % (47-70); POSITIVE MORPHOLOGY YES; Platelet Count 297 K/mm3 (150-450); RBC Distribution Width CV 16.2 % (11.6-14.6); RBC Distribution Width SD 44.2 fl (35.1-43.9); Red Blood Count 4.29 M/mm3 (4.6-6.2); White Blood Count 13.1 K/mm3 (4.4-11.0)
[2025-02-05 06:55] LABS: Differential Indicated SCAN CRITERIA MET
[2025-02-05 07:10] LABS: Anion Gap 12 (5-15); BUN 14 mg/dL (4-19); BUN/Creat Ratio 23.2 RATIO (10-20); Carbon Dioxide 22.9 mmol/L (21.0-32.0); Chloride 103 mmol/L (98-108); Creatinine, Serum 0.61 mg/dL (0.70-1.20); EST Glomerular Filtration Rate 135 (>60); Estimated Creatinine Clearance 157.97 ml/min (50-250); Glucose 248 mg/dL (70-99); Potassium 3.7 mmol/L (3.3-5.1); Sodium Level 137 mmol/L (133-145)
[2025-02-05 07:14] LABS: Bedside Glucose 181 mg/dL (74-106)
--- NOTE | 2025-02-05 07:43 | PN.HOSP_ITS ---
Hospitalist Note Patient was admitted [facility] today with DKA. He said he has type 1 diabetes mellitus diagnosed at the age of 15. Denies neuropathy or nephropathy or other retinopathy complications. He was admitted with vomiting [place] started around 6 PM for total of 4 times since then. Admitting glucose in [facility] 736 labs were consistent with DKA. First time gap 23-second 12. IV fluids changed from NS to D5 half NS as serum sodium improved from 128-137. Hyponatremia most likely hypertonic hypovolemic hyponatremia Glucose has decreased to 181 in [facility]. [facility] glucose 248. Continue insulin drip for
[2025-02-05 08:20] LABS: Bedside Glucose 159 mg/dL (74-106)
[2025-02-05 08:49] LABS: Atypical Lymphocyte 1+ %
[2025-02-05] MEDS: Dext 5%-0.45% NS 1,000 ML 250 ML IV (09:05)
[2025-02-05] MEDS: Enoxaparin 40 MG/0.4 ML Syringe SC (09:09)
[2025-02-05 09:29] LABS: Bedside Glucose 139 mg/dL (74-106)
[2025-02-05 09:58] LABS: Anion Gap 9 (5-15); BUN 12 mg/dL (4-19); Calcium,Total 8.2 mg/dL (7.6-11.0); Chloride 106 mmol/L (98-108); Creatinine, Serum 0.61 mg/dL (0.70-1.20); EST Glomerular Filtration Rate 135 (>60); Estimated Creatinine Clearance 157.97 ml/min (50-250); Glucose 155 mg/dL (70-99); Potassium 3.9 mmol/L (3.3-5.1); Sodium Level 141 mmol/L (133-145)
[2025-02-05 10:23] LABS: Bedside Glucose 158 mg/dL (74-106)
--- NOTE | 2025-02-05 11:01 | CASEMGMT ---
RN CRISS Assessment Face to Face with patient for initial transition planning/care coordination assessment. RN CM introduced self and role at [facility], pt voices understanding. Pt is A&Ox4 and is resting comfortably in the chair and is calm. Care providers, pharmacy, and demographics verified. Admitting dx: TAMERA ELLINGTON Strata: 3 PCP: No PCP listed. This RN CM inquired about this and pt states that he "has one that is right down the road." Pt reports that he cannot think of the name or the medical group. Pt also declines PCP list when offered. Specialists: Pt states that he is in the process of getting established with an Cytologist. This RN CM inquired if this is the local bag bailer, Dr. Caldera. Pt states that he does not know but that he is expecting a call back from the Cytologist for his first appt. Pt denies wanting or needing resources. Preferred Pharmacy: [email or web address] Insurance: [employer] Prescription Benefit: Yes LNOK: Negro Cosby (Father), Ashwini Novoa (Aunt) Living Arrangements: Pt lives with his father in a single story home ADLs/IADLs: Indep Transportation: Self, father. Denies concerns DME: Pt states that he has a functioning glucometer with a sufficient amount of lancets, test strips, and EtOH swabs. Pt states that he also takes insulin but he is out of pen needles. Pt states that he has refills available at [facility] and that all he needs to do is go pick them up. Pt denies further needs or concerns regarding his DM now. HHC/SNF: Denies hx of Pt’s goal: Home Plan: Home with father, refill pen needles, and follow up with pt's PCP and Endocrinology to better help manage his DM. Pt states that he feels safe with this plan and denies further needs. Luz Mon RN, CM
[2025-02-05 11:22] LABS: Bedside Glucose 169 mg/dL (74-106)
[2025-02-05 11:27] LABS: BETA-HYDROXYBUTYRATE 5.5 mmol/L (0.0-0.3)
[2025-02-05 11:59] LABS: Hemoglobin A1c 15.5 % (<=5.6)
[2025-02-05 12:24] LABS: Bedside Glucose 149 mg/dL (74-106)
[2025-02-05 12:40] LABS: Anion Gap 7 (5-15); BUN 10 mg/dL (4-19); Calcium,Total 7.7 mg/dL (7.6-11.0); Chloride 105 mmol/L (98-108); Creatinine, Serum 0.51 mg/dL (0.70-1.20); EST Glomerular Filtration Rate 142 (>60); Estimated Creatinine Clearance 188.95 ml/min (50-250); Glucose 170 mg/dL (70-99); Potassium 3.4 mmol/L (3.3-5.1); Sodium Level 137 mmol/L (133-145)
[2025-02-05 13:41] LABS: Bedside Glucose 138 mg/dL (74-106)
[2025-02-05] MEDS: Insulin Glargine-YFGN 100 UNIT/ML Pen 15 UNIT SC (13:50)
--- NOTE | 2025-02-05 15:57 | NURSING ---
Patient called out and asked if he could be discharge. This RN forwarded the patients request to Dr Zambrano. Dr Zambrano did not feel that patient was medically ready to be discharged. The patient verbalized that he understood and would like to leave AMA. Risks of leaving AMA were discussed with the patient who verbalized still wanting to leave. AMA paperwork printed and signed by the patient and IV's were removed. Dr Zambrano notified that patient left AMA.
--- NOTE | 2025-02-05 16:42 | DS.PCM_ITS ---
Providers Date of Admission: 02/05/25 Date of Discharge: 02/05/25 Primary Care Physician: No Primary Care Phys Reason For Visit: DKA Diagnosis Discharge Diagnosis (1) DKA (diabetic ketoacidosis): Status: Acute Code(s): E11.10 - Type 2 diabetes mellitus with ketoacidosis without coma Plan The patient was admitted with DKA. Anion gap's x 2 closed. [facility] Patient decided to sign AMA. Advised to stay overnight to get IV fluid stabilized glucose but he refused. He understands the implication of signing AMA. Patient left hospital. Medications at Discharge Home Medications insulin lispro 100 unit/mL subcutaneous pen See Rx Instructions SQ TIDCM short acting insulin 03/05/21 insulin glargine 100 unit/mL (3 mL) subcutaneous pen (Lantus Solostar U-100 Insulin) 30 unit subcut QPM diabetes 08/18/22 insulin glargine 100 unit/mL subcutaneous solution (Lantus U-100 Insulin) 35 unit subcut QHS 10/19/24 insulin lispro 100 unit/mL subcutaneous solution 25 unit subcut TIDCM 10/19/24 insulin syringe-needle U-100 0.5 mL 31 gauge x 5/16" (TRUEplus Insulin) 10/19/24 ondansetron 8 mg disintegrating tablet 8 mg PO Q8H PRN nausea and vomiting #12 tabs 12/14/24 Physical Exam Narrative Seen and examined in the morning. Patient is dehydrated. He stated that sometimes he misses insulin but denies any change in the diet. Denies any obvious precipitating factor for DKA. Nausea vomiting has resolved. No abdominal pain. Physical exam General: Alert, Oriented x3, Cooperative HEENT: Atraumatic, PERRLA, EOMI, Normocephalic. Oral: Oral mucosa dry. No Gingival or Mucosal Lesions/ Ulcerations Neck: Supple, No JVD, Negative Carotid Bruits Chest wall/Lungs: Air entry diminished in bilateral lung bases. No crepitation/rhonchi Cardiovascular: Regular rate and rhythm, Normal S1,S2, No M/G/R Abdomen: Bowel Sounds Present, Soft, Non Tender, Non-Distended : No dysuria. No renal angle tenderness. No suprapubic tenderness. Extremities: No edema, Capillary Refill Less than 3 Seconds Skin: No rashes, No breakdown Musculoskeletal: No Tenderness to Palpation of Joints or Extremities Neurological: Cranial nerves II-XII grossly intact, DTR 2+/4. No acute focal neurological deficit. Psych/Mental Status: Normal Affect, Appropriate. Weight / BMI Weight Weight: 135 lb 5.821 oz Body Mass Index (BMI) 18.3 ABG / Lab / Microbiology Data 02/05/25 06:16 02/05/25 12:05 Laboratory: Laboratory Results - last 24 hr 02/05/25 02:22: WBC 13.0 H, RBC 5.13, Hgb 12.3 L, Hct 39.3 L, MCV 76.6 L, MCH 24.0 L, MCHC 31.3 L, RDW Std Deviation 45.2 H, RDW Coeff of Alec 16.2 H, Plt Count 344, MPV 11.4, Immature Gran % (Auto) 0.200, Neut % (Auto) 55.6, Lymph % (Auto) 31.1, Barry % (Auto) 9.0, Eos % (Auto) 3.4, Baso % (Auto) 0.7, Absolute Neuts (auto) 7.3, Absolute Lymphs (auto) 4.05, Nucleated RBC % 0, Differential Comment SCANNED, Sodium 128 L 02/05/25 02:22: Sodium Cancelled, Potassium 4.5 02/05/25 02:22: Potassium Cancelled, Chloride 86 L 02/05/25 02:22: Chloride Cancelled, Carbon Dioxide 19.6 L 02/05/25 02:22: Carbon Dioxide Cancelled, Anion Gap 23 H 02/05/25 02:22: Anion Gap Cancelled, BUN 19 02/05/25 02:22: BUN Cancelled, Creatinine 0.97 02/05/25 02:22: Creatinine Cancelled, Estim Creat Clear Calc 99.02, Est GFR (MDRD) Non-Af 110 02/05/25 02:22: Est GFR (MDRD) Non-Af Cancelled, BUN/Creatinine Ratio 19.9 02/05/25 02:22: BUN/Creatinine Ratio Cancelled, Glucose 736 H* 02/05/25 02:22: Glucose Cancelled, Calcium 10.0 02/05/25 02:22: Calcium Cancelled, Phosphorus 4.6 H, Magnesium 1.9, b- Hydroxybutyric mmol/L 5.5 H, POC Glucose > 500 H* 02/05/25 03:44: Urine Color Straw, Urine Clarity Clear, Urine pH 6.0, Ur Specific [place] 1.010, Urine Protein 30 H, Urine Glucose (UA) 1000 H, Urine Ketones 150 A*, Urine Occult Blood 25 H, Urine Nitrite Negative, Urine Bilirubin Negative, Urine Urobilinogen Normal, Ur Leukocyte Esterase Negative, Urine RBC 0-5 SEEN, Urine WBC 0 SEEN, Ur Squamous Epith Cells 0 SEEN, Urine Bacteria 0 SEEN, Urine Mucus 0 SEEN 02/05/25 03:59: POC Glucose 430 H 02/05/25 04:56: POC Glucose 308 H 02/05/25 05:59: POC Glucose 269 H 02/05/25 06:16: WBC 13.1 H, RBC 4.29 L, Hgb 10.4 L, Hct 32.5 L, MCV 75.8 L, MCH 24.2 L, MCHC 32.0, RDW Std Deviation 44.2 H, RDW Coeff of Alec 16.2 H, Plt Count 297, MPV 10.8, Immature Gran % (Auto) 0.300, Neut % (Auto) 52.3, Lymph % (Auto) 34.1, Barry % (Auto) 8.5, Eos % (Auto) 4.2, Baso % (Auto) 0.6, Absolute Neuts (auto) 6.8, Absolute Lymphs (auto) 4.47, Nucleated RBC % 0, Atypical Lymphocytes 1+, Sodium 137, Potassium 3.7, Chloride 103, Carbon Dioxide 22.9, Anion Gap 12, BUN 14, Creatinine 0.61 L, Estim Creat Clear Calc 157.97, Est GFR (MDRD) Non-Af 135, BUN/Creatinine Ratio 23.2 H, Glucose 248 H, Hemoglobin A1c 15.5 H, Calcium 8.0 02/05/25 06:55: POC Glucose 181 H 02/05/25 08:02: POC Glucose 159 H 02/05/25 09:06: POC Glucose 139 H 02/05/25 09:15: Sodium 141, Potassium 3.9, Chloride 106, Carbon Dioxide 26.0, Anion Gap 9, BUN 12, Creatinine 0.61 L, Estim Creat Clear Calc 157.97, Est GFR (MDRD) Non-Af 135, BUN/Creatinine Ratio 20.0, Glucose 155 H, Calcium 8.2 02/05/25 10:04: POC Glucose 158 H 02/05/25 11:02: POC Glucose 169 H 02/05/25 12:03: POC Glucose 149 H 02/05/25 12:05: Sodium 137, Potassium 3.4, Chloride 105, Carbon Dioxide 26.0, Anion Gap 7, BUN 10, Creatinine 0.51 L, Estim Creat Clear Calc 188.95, Est GFR (MDRD) Non-Af 142, BUN/Creatinine Ratio 20.0, Glucose 170 H, Calcium 7.7 02/05/25 13:18: POC Glucose 138 H Microbiology: Microbiology 02/05/25 06:52 Nasal Secretion MRSA (PCR) - Final D/C Instructions DC O2, CPAP, BIPAP Needs Home O2 Discharge instructions: No Meaningful Use Info Meaningful Use Meaningful Use Diagnoses (Choose all that apply): None applicable Ischemic Stroke Statin Dosing Therapy Reference: STATIN DOSE THERAPY REFERENCE: * Patients > 75 years receive moderate or high dose statin therapy. * Patients 75 years or YOUNGER should receive HIGH intensity statin dose unless contraindicated. You will be required to document reason for non-treatment if statin daily dose does not meet guidelines. HIGH DOSE STATIN THERAPY DAILY Atorvastatin > than or = to 40 mg Rosuvastatin > than or = to 20 mg Amlodipine + Atorvastatin > than or = to 2.5/40 mg Ezetimibe + Simvastatin 10/80 mg Simvastatin 80mg Discharge Plan Admission Admit Date/Time: 02/05/25 03:44 Attending Provider: Alo Zambrano Primary Care Provider: Care Physician,No Primary Consulting Providers: Sarah Oh Discharge Orders/Prescriptions Prescriptions: No Action insulin lispro 100 UNIT/ML insulin pen See Rx Instructions SQ TIDCM Rx Instructions: SLIDING SCALE SQ 3 times daily with meals; +SLIDING SCALE insulin glargine [Lantus Solostar U-100 Insulin] 100 unit/mL (3 mL) insulin pen 30 unit subcut QPM insulin glargine [Lantus U-100 Insulin] 100 unit/mL solution 35 unit subcut QHS insulin lispro 100 unit/mL solution 25 unit subcut TIDCM Patient Comments: inject 25 three times a day (DME) insulin syringe-needle U-100 [TRUEplus Insulin] 0.5 mL 31 gauge x 5/16" syringe 1 syringe MISCELLANEOUS 4X/DAY ondansetron 8 mg tablet,disintegrating 8 mg PO Q8H PRN (Reason: nausea and vomiting) Qty: 12 0RF Referrals / Follow Up: Care Physician,No Primary [Primary Care Provider] - Disposition Disposition (needs filled in before D/C Order can be placed): Against Medical Advice Charges/Coding Visit Charges Inpatient E&M: 32376 Disch Hosp >30min
== END 2025-02-05 16:00 | disposition left against medical advice (07) | DRG 420 ==
LOC: ED 03:43 → ICU 07:13
PROVIDERS: Admitting Provider Family Medicine; Emergency Provider Emergency Medicine; Visit Provider Internal Medicine
DX: E10.10 Type 1 diabetes mellitus with ketoacidosis without coma (principal); Z79.4 Long term (current) use of insulin; D50.9 Iron deficiency anemia, unspecified; F17.210 Nicotine dependence, cigarettes, uncomplicated; F17.220 Nicotine dependence, chewing tobacco, uncomplicated; F32.A Depression, unspecified; F17.290 Nicotine dependence, other tobacco product, uncomplicated; F41.9 Anxiety disorder, unspecified; Z83.3 Family history of diabetes mellitus; Z53.29 Procedure and treatment not carried out because of patient's decision for other reasons
CPT/HCPCS: 80048; 81001; 82010; 82962; 83036; 83735; 84100; 85025; 87641; 93005; 94668; 94762; 96365; 96366; 96368; 96372; 96375; 97802; 99221; 99285; G0378; J2405

== ENCOUNTER 2025-02-27 12:25 | Observation (INO) | payer MEDICAID, SELFPAY ==
[2025-02-27] VITALS (14 sets, daily range): BP systolic 97–138; BP diastolic 53–89; PULSE 93–115; RESP 10–24; TEMP 36.2–36.6; O2SAT 97–100; BMI 18.3; BMI 16.4
[2025-02-27 13:35] LABS: Hematocrit 40.1 % (40-54); Hemoglobin 12.0 g/dL (13.0-16.5); Immature Granulocytes Count 0.040 X10^3/uL (0.0-0.0); Mean Corp Hgb Conc 29.9 g/dL (32-36); Mean Corpuscular Volume 81.2 fL (80-94); Mean Platelet Vol. 11.1 fl (6.2-12.0); NRBC Flagged by Analyzer 0 % (0-5); Platelet Count 268 K/mm3 (150-450); RBC Distribution Width CV 17.4 % (11.6-14.6); RBC Distribution Width SD 51.4 fl (35.1-43.9); Red Blood Count 4.94 M/mm3 (4.6-6.2); White Blood Count 8.8 K/mm3 (4.4-11.0)
[2025-02-27 14:09] LABS: Anion Gap 22 (5-15); BUN 11 mg/dL (4-19); BUN/Creat Ratio 11.0 RATIO (10-20); Calcium,Total 8.4 mg/dL (7.6-11.0); Carbon Dioxide 15.6 mmol/L (21.0-32.0); Chloride 91 mmol/L (98-108); Estimated Creatinine Clearance 94.64 ml/min (50-250); Potassium 5.3 mmol/L (3.3-5.1)
--- NOTE | 2025-02-27 14:17 | EKG12_ITS ---
Test Reason : Blood Pressure : */* mmHG Vent. Rate : 91 BPM Atrial Rate : 91 BPM P-R Int : 156 ms QRS Dur : 82 ms QT Int : 330 ms P-R-T Axes : 73 62 58 degrees QTcB Int : 405 ms Normal sinus rhythm Normal ECG Confirmed by Doyle Morales ([id number]), film or videotape editor DOMINIC KEENE ([id number]) on 02/28/2025 1:48:34 PM Referred By: Confirmed By: Doyle Morales
[2025-02-27 14:22] LABS: Glucose 865 mg/dL (70-99)
--- NOTE | 2025-02-27 14:25 | EX.ED.DYSGE1 ---
HPI History of Present Illness Chief Complaint: Palpitations Detail of Chief Complaint: Supraventricular tachycardia, this is not my first rodeo bud Informant: patient Onset/Context/Timing Onset: Today Context: Sudden Onset Timing: Continuous Quality: Palpitations, fast heart rate, states he needs a new heart valve Location: Cardiovascular Current Severity: Mild Maximum Severity: Moderate Worsened by: Activity and upright position Relieved by: Nothing Associated Symptoms Associated Symptoms: Nausea, thirst, increased urination Narrative Narrative: Patient is a 29-year-old male. He is not a good informant. He presents because of palpitation. He states he has been here before and this is not my first rodeo bud. Patient has not checked his blood sugar presently. 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 He has been admitted numerous times this year for DKA. Question of ketotic odor to his breath. He is tachycardic and tachypneic. Monitor reveals a sinus tachycardia. He denies headache, double vision, ringing his ears decreased hearing. Does have blurred vision, bilaterally. He denies chest discomfort, pressure, tightness or heaviness. He does endorse some mild shortness of breath. He does complain of some vague abdominal discomfort with nausea without vomiting or diarrhea. He denies dysuria or hematuria. He does endorse nocturia and urgency/frequency. Prior similar symptoms: Yes (Per review of old records when patient presents with similar symptoms he horta) Recent Illness/Hospitalization: No PFSH PFS Medical History Noncompliance with medication regimen Anxiety and depression Tobacco use Chronic anemia Learning difficulty due to cognitive limitations H/O fracture of skull Type I diabetes mellitus, uncontrolled Home Medications ?Medication ?Instructions ?Recorded ?Last Taken ?Type insulin lispro 100 unit/mL See Rx Instructions SQ TIDCM short 03/05/21 03/04/21 History subcutaneous pen acting insulin insulin glargine 100 unit/mL (3 30 unit subcut QPM diabetes 08/18/22 Unknown History mL) subcutaneous pen (Lantus Solostar U-100 Insulin) insulin glargine 100 unit/mL 35 unit subcut QHS 10/19/24 Unknown History subcutaneous solution (Lantus U-100 Insulin) insulin lispro 100 unit/mL 25 unit subcut TIDCM 10/19/24 Unknown History subcutaneous solution insulin syringe-needle U-100 0.5 10/19/24 Unknown History mL 31 gauge x 5/16 (TRUEplus Insulin) ondansetron 8 mg disintegrating 8 mg PO Q8H PRN nausea and 12/14/24 Unknown Rx tablet vomiting #12 tabs Allergy/AdvReac Type Severity Reaction Status Date / Time No Known Allergies Allergy Verified 02/27/25 12:27 Family History Father Diabetes Mother , Age 26. Heart disease CAD (coronary artery disease) Hypertension Heart failure Surgical History H/O skin graft Social History household members: family Smoking Status: Current some day smoker tobacco type: cigarettes, e-cigarettes and smokeless tobacco Smokeless tobacco user: chewing tobacco second hand exposure: Yes alcohol intake: never substance use type: does not use ROS ROS ED Constitutional Constitutional ED: Denies chills, fever(s), subjective, sweats or weight loss Eyes Eyes: Reports blurry vision bilateral; Denies change in vision or diplopia ENT ENT ED: Denies ear pain, rhinorrhea or sore throat Cardiovascular Cardiovascular: Reports palpitations and racing heartbeat; Denies chest pain, orthopnea or paroxysmal nocturnal dyspnea Respiratory/Chest Respiratory/Chest: Reports dyspnea; Denies cough, dyspnea on exertion, orthopnea or paroxysmal nocturnal dyspnea Gastrointestinal Gastrointestinal: Reports abdominal pain and nausea; Denies constipation, diarrhea, melena or vomiting Genitourinary Genitourinary ED: Denies dysuria, hematuria or urinary frequency Musculoskeletal Musculoskeletal: Reports arthralgias and myalgias Integumentary Reports rash Neurologic Neurologic: Reports weakness; Denies headache(s) or paresthesias Endocrine Endocrinology: Reports polydipsia and polyuria Hematologic/Lymphatic Hematologic/Lymphatic: Reports systems reviewed and no addt'l complaints, except as documented EXAM Physical Exam Const Vital Signs: 02/27/25 12:26 02/27/25 13:29 02/27/25 13:30 Temperature 97.4 F L Temperature Source Oral Pulse Rate 115 H 105 H Pulse Rate [Lying] Pulse Rate [Sitting (for 1 minute prior to obtaining)] Pulse Rate [Standing (for 1 minute prior to obtaining)] Respiratory Rate 22 H 24 H Respiratory Effort Normal Non-Labored Blood Pressure 138/89 H 115/88 H Blood Pressure [Lying] Blood Pressure [Sitting (for 1 minute prior to obtaining)] Blood Pressure [Standing (for 1 minute prior to obtaining)] Blood Pressure Mean 105 97 Blood Pressure Mean [Lying] Blood Pressure Mean [Sitting (for 1 minute prior to obtaining)] Blood Pressure Mean [Standing (for 1 minute prior to obtaining)] Pulse Ox 100 97 Oxygen Delivery Method Room Air Room Air 02/27/25 14:00 Temperature Temperature Source Pulse Rate Pulse Rate [Lying] 95 Pulse Rate [Sitting (for 1 minute prior to obtaining)] 99 Pulse Rate [Standing (for 1 minute prior to obtaining)] 112 H Respiratory Rate Respiratory Effort Blood Pressure Blood Pressure [Lying] 97/60 Blood Pressure [Sitting (for 1 minute prior to obtaining)] 112/76 Blood Pressure [Standing (for 1 minute prior to obtaining)] 110/75 Blood Pressure Mean Blood Pressure Mean [Lying] 72 Blood Pressure Mean [Sitting (for 1 minute prior to obtaining)] 88 Blood Pressure Mean [Standing (for 1 minute prior to obtaining)] 86 Pulse Ox Oxygen Delivery Method Positive well developed, cachectic and unkempt Constitutional Narrative: Patient appears ill but not toxic. General Appearance ED: unkempt, well developed, cachectic and pallor; Negative for cyanotic or diaphoretic Nutritional Appearance: cachectic HEENT Reports dry mucous membranes HEENT Narrative: Head is a head is atraumatic and normocephalic. Ears normal. TMs normal. Nares patent. Posterior pharynx is normal. Mouth ED: Yes dry mucous membranes Mouth: dry mucous membranes Eyes PERRL and EOMs intact bilaterally General Eye ED: Negative for pale conjunctiva or scleral icterus Neck no lymphadenopathy, supple and no JVD Chest Wall inspection of chest normal and palpation of chest normal Resp normal respiratory effort and clear to auscultation bilaterally Cardio regular rhythm, S1 normal heart sound, S2 normal heart sound and no murmurs Rate: tachycardic GI normal to inspection, nondistended, normoactive bowel sounds, non-tender, non-distended and no masses; Negative for hepatosplenomegaly Back/Spine no CVA tenderness Extremity normal to inspection General Extremety ED: Negative for edema General Extremity: Negative for edema Neuro CN's II-XII intact bilaterally Neuro Narrative: Patient is awake but not alert. Sensorium / Orientation: Negative for alert Psych Appearance: unkempt Skin no rashes or lesions noted, no wounds and No skin turgor normal General Skin Exam: pallor; Negative for jaundice MDM MDM MDM Narrative Medical decision making narrative: Initial workup included CBC BMP and placed on monitor. In light of his past history and laboratory results DKA order set was initiated. He did receive IV fluids. He was started on insulin drip. Differential initially was sinus tach due to dehydration, hyperglycemia, DKA, Lab Data Attestation: I reviewed the patient's lab results. Lab results narrative: CBC is essentially unremarkable. Basic metabolic panel is micro sodium 129 which was represents a pseudohyponatremia. Once corrected for the glucose it is upper end of normal. Potassium cellulite at 5.3. CO2 is 15 with an anion gap of 22. BUN and creatinine are normal. Blood sugar was 865. Labs: Laboratory Results - last 24 hr 02/27/25 13:26 WBC 8.8 RBC 4.94 Hgb 12.0 L Hct 40.1 MCV 81.2 MCH 24.3 L MCHC 29.9 L RDW Std Deviation 51.4 H RDW Coeff of Alec 17.4 H Plt Count 268 MPV 11.1 Immature Gran % (Auto) 0.500 Neut % (Auto) 59.1 Lymph % (Auto) 28.6 [place] % (Auto) 7.6 Eos % (Auto) 3.4 Baso % (Auto) 0.8 Absolute Neuts (auto) 5.2 Absolute Lymphs (auto) 2.53 Nucleated RBC % 0 Sodium 129 L Potassium 5.3 H Chloride 91 L Carbon Dioxide 15.6 L Anion Gap 22 H BUN 11 Creatinine 1.02 Estim Creat Clear Calc 94.64 Est GFR (MDRD) Non-Af 103 BUN/Creatinine Ratio 11.0 Glucose 865 H* Calcium 8.4 Rhythm Strip Rhythm Strip: T waves appear prominent. In light of this we will obtain EKG. Rate: 120 EKG Initial EKG: Attestation: I personally reviewed and interpreted this EKG as follows: Interpretation: Sinus Rhythm (Rate is 91. The EKG is interpreted as normal. His T waves are peaked which would raise concern for hyperkalemia. His potassium is only 5.3. TX interval is 156 ms. QRS duration 82 ms. QT duration 130 ms. [place] is normal.) Critical Care Time Critical Care Time: Yes Critical care time (excluding procedures): 30-74 minutes (31), Including time spent: (History, physical, documentation, interventional titration laboratory results, EKG and treatment for DKA.), Discussing w/Patient &/or Family/Belt Sander, Discussing w/Consultants and Arranging Admission or Transfer Discharge Plan Triage Chief Complaint: Palpitations ED Provider: Arik Boswell Dx/Rx/DC Orders Clinical Impression: Diabetic ketoacidosis associated with type 1 diabetes mellitus, Acute hyperkalemia, Acute dehydration Prescriptions: No Action insulin lispro 100 UNIT/ML insulin pen See Rx Instructions SQ TIDCM Rx Instructions: SLIDING SCALE SQ 3 times daily with meals; +SLIDING SCALE insulin glargine [Lantus Solostar U-100 Insulin] 100 unit/mL (3 mL) insulin pen 30 unit subcut QPM insulin glargine [Lantus U-100 Insulin] 100 unit/mL solution 35 unit subcut QHS insulin lispro 100 unit/mL solution 25 unit subcut TIDCM Patient Comments: inject 25 three times a day (DME) insulin syringe-needle U-100 [TRUEplus Insulin] 0.5 mL 31 gauge x 5/16 syringe 1 syringe MISCELLANEOUS 4X/DAY ondansetron 8 mg tablet,disintegrating 8 mg PO Q8H PRN (Reason: nausea and vomiting) Qty: 12 0RF Primary Care Provider: Care Physician,No Primary Referrals: Care Physician,No Primary [Primary Care Provider] - Print Language: Citizen Of [place] Disposition Disposition: [facility]
[2025-02-27 14:44] LABS: Mucous, Urine 0 SEEN /hpf (<or=2+)
[2025-02-27] MEDS: Insulin Lispro 100 UNIT in 0.9% Normal Saline (100mL Bag) 99 ML 6.2 UNIT CONT INF (14:48)
[2025-02-27] MEDS: 0.9% Normal Saline (1000mL) 1,000 ML 999 ML IV (14:49)
[2025-02-27 14:51] LABS: Color, Urine Straw (Yellow); Glucose, Dipstick 1000 mg/dl (Normal); Ketone-Dipstick 50 mg/dl (Negative); Leukocyte Esterase-Dipstick Negative /ul (Negative); Nitrite-Dipstick Negative (Negative); Occult Blood-Urine 10 /ul (Negative); Protein-Dipstick 15 mg/dl (Negative); Specific Gravity, Urine 1.010 (1.002-1.030); Urine Bilirubin Dipstick Negative (Negative)
--- NOTE | 2025-02-27 14:52 | HP.PCM.HOS_ITS ---
HPI - General General Date of Admission: 02/27/25 Date of Service: 02/27/25 Chief Complaint: Heart palpitations HPI Narrative UNA DURON, is [id number] male history of type 1 diabetes and tobacco use presented to [facility] ED 02/27/2025 with complaints of heart palpitations. In the ED temp 97.4, heart rate 115 with a blood pressure 138/89, respiratory rate 22 pulse ox 100% on room air. CBC with white blood cell count 8.8 and hemoglobin of 12, BMP with sodium of 129, potassium 5.3, chloride 91, bicarb 15.6 with an anion gap of 22, BUN 11 with a creatinine of 1.02 up from baseline of about 0.65. Glucose found to be 865. Patient suspected to be in DKA so he was given IV fluids, started on insulin drip and UA and beta hydroxybutyrate ordered. Hospitalist contacted for admission for DKA. Patient evaluated at bedside, reports that he came in because he began having heart palpitations earlier today but ROS otherwise completely negative. Says he has some chronic pain diffusely but nothing that is new. Said he only ate a salad today and that he did not take his insulin. Endorses using about 25 units of long-acting in the morning with sliding scale, sliding scale throughout the day and 30 of long-acting at bedtime. Per patient he reports compliance [facility] Medical History Noncompliance with medication regimen Anxiety and depression Tobacco use Chronic anemia Learning difficulty due to cognitive limitations H/O fracture of skull Type I diabetes mellitus, uncontrolled Home Medications ?Medication ?Instructions ?Recorded ?Last Taken ?Type insulin lispro 100 unit/mL See Rx Instructions SQ TIDC M short 03/05/21 03/04/21 History subcutaneous pen acting insulin insulin glargine 100 unit/mL (3 30 unit subcut QPM linda betes 08/18/22 Unknown History mL) subcutaneous pen (Lantus Solostar U-100 Insulin) insulin glargine 100 unit/mL 35 unit subcut QHS diabet es 10/19/24 Unknown History subcutaneous solution (Lantus U-100 Insulin) insulin lispro 100 unit/mL 25 unit subcut TIDCM diabet es 10/19/24 Unknown History subcutaneous solution insulin syringe-needle U-100 0.5 10/19/24 Unknown His tory mL 31 gauge x 5/16 (TRUEplus Insulin) ondansetron 8 mg disintegrating 8 mg PO Q8H PRN nausea and 12/14/24 Unknown Rx tablet vomiting #12 tabs Allergy/AdvReac Type Severity Reaction Status Date / Time No Known Allergies Allergy Verified 02/27/25 12:27 Family History Father Diabetes Mother , Age 26. Heart disease CAD (coronary artery disease) Hypertension Heart failure Surgical History H/O skin graft Social History household members: family Smoking Status: Current some day smoker tobacco type: cigarettes, e-cigarettes and smokeless tobacco Smokeless tobacco user: chewing tobacco second hand exposure: Yes alcohol intake: never substance use type: does not use ROS ROS Narrative General: Denies fever/chills HENT: Denies headache, denies stuffy nose, denies sore throat EYES: Denies changes in vision Resp: Denies cough, denies shortness of breath Cardiac: Denies chest pain, came in because of palpitations GI: Denies abdominal pain, denies changes in bowel, denies nausea/vomiting : Denies changes in urination Extremity: Denies swelling MSK: Denies weakness, has some various aches and pains which she reports are chronic Neuro: Denies any numbness/tingling Heme: Denies any bleeding or bruising Skin: Denies rashes Psychiatric: No complaints voiced Vital Signs Vital Signs Vital Signs: 02/27/25 12:26 02/27/25 13:29 02/27/25 13:30 Temperature 97.4 F L Temperature Source Oral Pulse Rate 115 H 105 H Pulse Rate [Lying] Pulse Rate [Sitting (for 1 minute prior to obtaining)] Pulse Rate [Standing (for 1 minute prior to obtaining)] Respiratory Rate 22 H 24 H Respiratory Effort Normal Non-Labored Blood Pressure 138/89 H 115/88 H Blood Pressure [Lying] Blood Pressure [Sitting (for 1 minute prior to obtaining)] Blood Pressure [Standing (for 1 minute prior to obtaining)] Blood Pressure Mean 105 97 Blood Pressure Mean [Lying] Blood Pressure Mean [Sitting (for 1 minute prior to obtaining)] Blood Pressure Mean [Standing (for 1 minute prior to obtaining)] Pulse Ox 100 97 Oxygen Delivery Method Room Air Room Air 02/27/25 14:00 Temperature Temperature Source Pulse Rate Pulse Rate [Lying] 95 Pulse Rate [Sitting (for 1 minute prior to obtaining)] 99 Pulse Rate [Standing (for 1 minute prior to obtaining)] 112 H Respiratory Rate Respiratory Effort Blood Pressure Blood Pressure [Lying] 97/60 Blood Pressure [Sitting (for 1 minute prior to obtaining)] 112/76 Blood Pressure [Standing (for 1 minute prior to obtaining)] 110/75 Blood Pressure Mean Blood Pressure Mean [Lying] 72 Blood Pressure Mean [Sitting (for 1 minute prior to obtaining)] 88 Blood Pressure Mean [Standing (for 1 minute prior to obtaining)] 86 Pulse Ox Oxygen Delivery Method Weight Weight: 61.507 kg Body Mass Index (BMI) 18.3 Physical Exam Narrative General: Alert, no apparent distress HEENT: Atraumatic, normocephalic Eyes: Anicteric, normal conjunctiva, extraocular movements grossly intact Neck: Supple Respiratory: Clear to auscultation bilaterally, normal respiratory effort Cardiovascular: Low-grade sinus tachycardia GI: Soft, nontender, nondistended Extremities: No edema Musculoskeletal: Moving all extremities Neuro: No overt focal neurological deficits Skin: No rashes appreciated Psych: Cooperative, somewhat odd affect and random almost inappropriate laughter but is calm and pleasant Results Lab / Micro Data 02/27/25 13:26 02/27/25 13:26 Labs: Laboratory Results - last 24 hr 02/27/25 13:26: WBC 8.8, RBC 4.94, Hgb 12.0 L, Hct 40.1, MCV 81.2, MCH 24.3 L, M CHC 29.9 L, RDW Std Deviation 51.4 H, RDW Coeff of Alec 17.4 H, Plt Count 268, MPV 11.1, Immature Gran % (Auto) 0.500, Neut % (Auto) 59.1, Lymph % (Auto) 28.6, [place] % (Auto) 7.6, Eos % (Auto) 3.4, Baso % (Auto) 0.8, Absolute Neuts (auto) 5.2, Absolute Lymphs (auto) 2.53, Nucleated RBC % 0, Sodium 129 L, Potassium 5.3 H, Chloride 91 L, Carbon Dioxide 15.6 L, Anion Gap 22 H, BUN 11, Creatinine 1.02, Estim Creat Clear Calc 94.64, Est GFR (MDRD) Non-Af 103, BUN/Creatinine Ratio 11.0, Glucose 865 H*, Calcium 8.4 02/27/25 14:35: Urine Color Straw, Urine Clarity Clear, Urine pH 6.0, Ur Specific [place] 1.010, Urine Protein 15 H, Urine Glucose (UA) 1000 H, Urine Ketones 50 H, Urine Occult Blood 10 H, Urine Nitrite Negative, Urine Bilirubin Negative, Urine Urobilinogen Normal, Ur Leukocyte Esterase Negative Rhythm Strip Rhythm Strip: T waves appear prominent. In light of this we will obtain EKG. Rate: 120 Assessment & Plan Assessment/Plan (1) Diabetic ketoacidosis associated with type 1 diabetes mellitus: (2) Acute dehydration: PLAN: Plan #DKA in setting of chronic type 1 diabetes -Serum glucose in ED 865, anion gap 22 and bicarb of 15.6 -Urine ketones ordered and pending -Serum beta hydroxybutyrate ordered and pending -Admit to intensive care unit -N.p.o. -Insulin drip started -Aggressive fluid hydration -Glucose checks and DKA protocol -BMP every 4H -Replace electrolytes per protocol -I's and O's -A1c not ordered because patient had A1c 02/05/2025 which was 15.5 -When serum glucose is <250 mg/dl, change IV fluids to D5%1/2NS at 150 ml/hr and continue insulin drip as per nomogram - Of note patient endorsed compliance with his regimen however seems slightly unclear as to what he was supposed to be taking and it seems not to match what is documented in the EMR, additionally had an A1c 1 month ago of 15.5, if patient does not already have an seconds handler would benefit from establishing care with 1 # [facility] - Patient's creatinine 1.02 however baseline is about 0.65 - Aggressive IV fluids as above # Hyperkalemia - With potassium of 5.3, did have peaked T waves however patient now receiving aggressive IV fluids and insulin, suspect that this will decrease with these interventions - Trending BMPs every 4 #Tobacco use -Primarily chew tobacco -Advise cessation - Patient agreeable for nicotine patch #DVT ppx: SCDs Marcelina Erickson, MD Charges/Coding Visit Charges Inpatient E&M: 27166 Init Hosp L2
[2025-02-27 15:21] LABS: Red Blood Cells-Urine 0-5 SEEN /hpf (0-5); Squamous Epithelial Cells - UA 0-5 SEEN /hpf (0-5)
[2025-02-27] MEDS: 0.9% Normal Saline (1000mL) 1,000 ML 1000 ML IV (15:30)
[2025-02-27] MEDS: 0.9% Normal Saline (1000mL) 1,000 ML 250 ML IV (16:49)
[2025-02-27] MEDS: Dext 5%-0.45% NS 1,000 ML 150 ML IV (18:02)
[2025-02-27 18:15] LABS: Anion Gap 13 (5-15); Carbon Dioxide 20.6 mmol/L (21.0-32.0); Chloride 105 mmol/L (98-108); Magnesium 2.1 mg/dL (1.5-2.2); Potassium 3.4 mmol/L (3.3-5.1)
[2025-02-27 18:37] LABS: BETA-HYDROXYBUTYRATE 0.1 mmol/L (0.0-0.3)
[2025-02-27 20:43] LABS: SITE Not entered; VBG BASE EXCESS 7 mmol/L (-1.0-3.5); VBG PO2 53 mmHg (25-40); VBG SO2 89 % (50-70); VBG TCO2 31 mmol/L (23-33)
--- OUTSIDE RECORDS SUMMARY | 2025-02-27 20:50 | XMS RPT_ITS | CCD ---
Author Organization [facility] Care Team Providers Care Police Lieutenant Name Role Phone [employer] Unavailable Ingrid COMPUTER PROGRAMMING SUPERVISOR, Edwina Bahena Unavailable [employer] Unavailable [employer] Unavailable [...] MUAKKASSA, FARID LIBERTY Unavailable Unavailabl e MIDHA, LUI Unavailable Unavailable AUBREY KULKARNIHR Unavailable Unavai lable IM[facility] Unavailable Unavailable MUAKKASSA, FARID F Unavailable Unavailable AUBREY KULKARNI Unavailable Unavailable MUAKKASSA, FARID F Unavailable Unavailable MIDHA, LUI Unavailable Unavailable AUBREY KULKARNI Unavailable Unavailable [facility] Unavailable Unavailable Signs , Ge Bahena Unavailable [employer] Unavailable [employer] Unavailable Ingrid DIAZ, Edwina J Unavailable [facility], [place] Unavailable Deangelo Noel MD Primary Care Provider Darren Zarate DO Unavailable MD Deangelo Noel Primary Care Provider Dr. Keisha Mcneill Emergency Provider Dr. Deangelo Farah Admit Provider Dr. Deangelo Farah Other Provider RICK Peguero Attending Provider Unavail able [facility], [place] Unavailable Deangelo Noel MD Primary Care Provider Darren Zarate DO Unavailable [facility], [place] Unavailable Deangelo Noel MD Primary Care Provider MD Deangelo Noel Primary Care Provider Dr. Keisha Mcneill Emergency Provider Dr. Deangelo Farah Admit Provider Dr. Deangelo Farah Other Provider RICK Peguero Attending Provider Unavail able [facility], [place] Unavailable Deangelo Noel MD Primary Care Provider Darren Zarate DO Unavailable MD Deangelo Noel Primary Care Provider Dr. Keisha Mcneill Emergency Provider Dr. Isidro Cruz Admit Provider Unavailable Dr. Isidro Cruz Attending Provider Unavailable Dr. Isidro Cruz Other Provider Unavailable Charles 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.ANNA, Phillip Primary Care Provider MD Deangelo Mcmillan Primary Care Provider Un available Dr. Keisha Handy Emergency Provider Anthony, Dr. Ramos Admit Provider Unavailable Anthony, Dr. Ramos Attending Provider Unavailable Anthony, Dr. Ramos Other Provider Unavailable Marie, Dr. Culp Attending Provider Marie, Dr. Culp Referring Provider [phone] Sadie ORELLANA MD Deangelo Primary Care Provider Un available Rozina PIERRE, Dr. Valdes Emergency Provider Care Physician, No Primary Primary Care Provider Unavailable Rozina PIERRE, Dr. Valdes Attending Provider [facility], Dr. Harris Referring Provider [facility], Dr. Harris Emergency Provider [facility], Dr. Harris Attending Provider Elbert MIRELES, Dr. Elise Emergency Provider Rob MIRELES, Dr. Martinez Emergency Provider Elbert MIRELES, Dr. Elise Attending Provider Rob MIRELES, Dr. Martinez Attending Provider Miguel PIERRE, Dr. Jc Emergency Provider [phone] Adriano MIRELES, Dr. Sarah Jiménez Admit Provider Adriano MIRELES, Dr. Sarah Jiménez Attending Provider Adriano MIRELES, Dr. Sarah Jiménez Other Provider [phone] Juan Manuel MIRELES, Dr. Prajapati Attending Provider Beam VS, Kristy Attending Unavailable Care Physician, No Primary Primary Care Unava ilable Juan Rivas Attending Unavailable Care Physician, No Primary Primary Care Unava ilable Sarah Oh Admitting Unavailable Alo Zambrano Attending Unavailable Sarah Oh Consulting Unavailable Care Physician, No Primary Primary Care Unava ilable Arik Boswell Attending Unavailable Care Physician, No Primary Primary Care Unava ilable Sarah Oh Admitting Unavailable Sarah Oh Consulting Unavailable Sarah Oh Attending Unavailable Care Physician, No Primary Primary Care Unava ilable Care Physician, No Primary Primary Care Unava ilable Godman, Keisha Attending Unavailable Steven Donaldson Attending Unavailsamir e Steven Donaldson Referring Unavailabl e Care Physician, No Primary Primary Care Unava ilable Keisha Handy Attending Unavailable Care Physician, No Primary Primary Care Unava ilable Care Physician, No Primary Primary Care Provider Unavailable Dr. Keisha Handy DO Attending Provider Dr. Keisha Handy DO Emergency Provider [phone] Dre MIRELES, Dr. Hewitt Admit Provider [phone] Dre MIRELES, Dr. Hewitt Attending Provider Allergies Allergy Classification Reported Allergen(s) Allergy Type Date of Onset Reaction(s) Facility (1 source) Wheat bran; Translations: [WHEAT BRAN] Propensity to adverse reactions to drug (disorder) 8 [facility] Repository (1 source) GLUTEN MEAL; Translations: [GLUTEN MEAL] Propensity to adverse reactions to drug (disorder) 8 [facility] Repository (20 sources) Gluten; Translations: [GLUTEN] Propensity to adverse reactions to drug (disorder) 8 Diarrhea [facility] Repository (12 sources) Wheat preparation Drug Allergy 2 [facility] Medications Current Medications Medication Drug Class(es) [...] Glargine (Lantus U-100 Insulin) 100 unit/mL solution (5 sources) Start: 10-19-2024 Insulin Glargine (Lantus U-100 Insulin) 100 unit/mL solution Active 35 U SC AT BEDTIME October 19, 2024 12:00am diabetes Start: 10-19-2024 Insulin Glargi ne (Lantus U-100 Insulin) 100 unit/mL solution Active 35 U SC AT BEDTIME October 19, 2024 12:00am insulin lispro 100 unt/ml injectable solution (20 sources) Insulin Analogue Start: 10-19-2024 Insulin Lispr o 100 unit/mL solution Active 25 U SC 3 TIMES DAILY WITH MEALS October 19, 2024 12:00am diabetes Start: 08-24-2022 insulin lispro (HUMALOG KWIKPEN) 100 [...] SQ 3 TIMES DAILY WITH MEALS 1 0 November 26, 2020 11:58am March 05, 2021 2:10pm short acting insulin Start: 12-22-2017 End: 12-23-2017 Insulin Lispro (Humalog Kwik pen Insulin) 100 unit/mL insulin pen Discontinued 0 SC THREE TIMES A DAY 18 11 December 23, 2017 4:15pm December 23, 2017 4:40pm Type 1 diabetes mellitus without complications e10.9 10 units to 14 units at each meal and sliding scale up to 60 units daily SC TID Start: 12-10-2016 End: 03-12-2025 Insulin Lispro (Humalog Kwik pen Insulin) 100 UNIT/ML Ml Discontinued 30 U SQ 3 TIMES DAILY WITH MEALS January 18, 2019 12:00am November 26, 2020 11:58am short acting insulin Start: 12-10-2016 End: 03-12-2025 HUMALOG KWIKPEN 100 UNIT/ML SOPN Take 10-14 units at each meal and sliding scale up to 60 units daily INSULIN LISPRO [id number] Edwina Quintero NP Start: 12-08-2016 End: 05-17-2017 Insulin Lispro (Humalog Kwik pen Insulin) 100 UNIT/ML Insuln.Pen Discontinued 15 U SQ 3 TIMES DAILY WITH MEALS 5 0 December 08, 2016 9:24am May 17, 2017 8:35am Start: 12-07-2016 End: 01-20-2017 Insulin Lispro (Humalog Kwik pen Insulin) 100 UNIT/ML Insuln.Pen Discontinued 0 December 07, 2016 12:00am January 20, 2017 2:58pm Please contact the information source for Protocol details. Start: 11-09-2016 HUMALOG KWIKPE N 100 UNIT/ML SOPN Use 10 units with every meal. INSULIN LISPRO [id number] Edwina Quintero NP Start: 11-09-2016 HUMALOG KWIKPE N 100 UNIT/ML SOPN Use 10 units with every meal. INSULIN LISPRO [id number] Edwina Quintero NP Start: 10-19-2016 End: 12-08-2016 inject 10 [IU] by subcutaneous injection three times daily at mealtime Insulin Lispro (Humalog Kwikpen Insulin) 100 UNIT/ML Insuln.Pen Discontinued 10 U SQ 3 TIMES DAILY WITH MEALS 5 0 October 20, 2016 11:45am December 08, 2016 [...] coverage ondansetron 8 mg disintegrating oral tablet (20 sources) Serotonin-3 Receptor Antagonist Start: 12-15-19 take 1 tablet by mouth every eight hours as needed for nausea and vomiting Ondansetron 8 mg tablet,disintegrat ing Active 8 mg PO Q8H as needed for nausea and vomiting 12 December 14, 2024 12:00am Start: 11-11-2024 End: 12-13-2024 take 1 tablet by mouth every eight hours as needed for nausea Ondansetron 4 mg tablet,disintegrating Discontinued 4 mg PO EVERY 8 HOURS NEEDED as needed for Nausea 10 November 11, 2024 12:00am December 13, 2024 9:49pm Start: 12-09-2022 End: 10-19-2024 take 1 tablet by mouth every eight hours as needed for nausea Ondansetron 4 mg tablet,disintegrating Discontinued 4 mg PO EVERY 8 HOURS NEEDED as needed for Nausea 10 December 09, 2022 12:00am October 19, 2024 3:37am Completed/Discontinued Medications Medication Drug Class(es) Dates Sig (Normalized) Sig (Original) acetaminophen 325 mg oral tablet (13 sources) Start: 06-09-2022 take 3 tablets by mouth four times daily acetaminophen (TYLENOL) 325 mg tablet Take 3 tablets by mouth four times daily. 120 tablet 5 06/09/2022 Active Start: 03-23-2018 take 3 tablets by mo ut four times daily acetaminophen (TYLENOL) 325 mg [...] mg / clavulanate 125 mg oral tablet (19 sources) Penicillin-class Antibacterial Start: 01-20-2017 End: 01-28-2017 Amoxicillin-Pot Clavulanate (Augmentin 875-125 Tablet) 1 EACH tablet Discontinued 1 NMA PO Q12H 7 0 January 20, 2017 12:00am January 28, 2017 9:55am to finish 01/23 pm Blood-Glucose Meter (Freestyle Lite Meter) kit (19 sources) Start: 12-23-2017 End: 12-23-2017 Blood-Glucose Meter (Freestyle Lite Meter) kit Discontinued 0 .ROUTE .MEDSUPPLY 1 December 23, 2017 12:00am December 23, 2017 4:40pm Type 1 diabetes mellitus without complications e10.9 use to check BG 6-8 x qd [...] x qd cephalexin 500 mg oral capsule (19 sources) Cephalosporin Antibacterial Start: 03-08-2021 End: 01-19-2022 take 1 capsule by mouth three times daily Cephalexin 500 mg capsule Discontinued 500 mg PO THREE TIMES A DAY 30 March 08, 2021 12:00am January 19, 2022 10:07am clindamycin 150 mg oral capsule (19 sources) Lincosamide Antibacterial Start: 12-11-2016 End: 01-20-2017 take 3 capsules by mouth four times daily Clindamycin Hcl 150 MG capsule Discontinued 450 mg PO 4 TIMES DAILY 10 December 11, 2016 12:00am January 20, 2017 [...] 05, 2021 12:00am October 19, 2024 1:22am supplement Comment on above: Take 1 tablet by truong th daily with breakfast. gabapentin 300 mg oral capsule (14 sources) Anti-epileptic Agent Start: 3 End: take 1 capsule by mouth at bedtime Gabapentin 300 mg capsule Discontinued 300 mg PO AT BEDTIME 14 August 24, 2022 1:00am October 19, 2024 [...] 08, 2017 2:44pm August 13, 2017 10:35am LONG ACTING, BLOOD SUGAR Start: 07-08-2017 End: 12-22-2017 Insulin Detemir U-100 100 UN ITS/ML insulin pen Discontinued 30 U SC AT BEDTIME 1 2 August 13, 2017 10:35am December 22, 2017 12:02pm Type 1 diabetes mellitus LONG ACTING, BLOOD SUGAR Start: 05-18-2017 End: 07-08-2017 Insulin Detemir U-100 (Levem ir Flextouch U100 Insulin) 100 UNITS/ML Insuln.Pen Discontinued 20 U SC TWICE DAILY BEFORE MEALS 1 May 18, 2017 9:55am July 08, 2017 2:45pm Start: 05-18-2017 End: 07-08-2017 Insulin Detemir U-100 (Levem ir Flextouch U-100 Insuln) 100 UNITS/ML Insuln.Pen Discontinued 20 UNITS SC TWICE DAILY BEFORE MEALS 1 May 18, 2017 9:55am July 08, 2017 [...] morning. 4 Each 4 08/25/2022 Active Start: 08-18-2022 Insulin Glargi ne (Lantus Solostar U-100 Insulin) 100 unit/mL (3 mL) insulin pen Active 30 U SC EVERY EVENING August 18, 2022 12:11pm diabetes Start: 07-07-2022 insulin glargi ne (LANTUS SOLOSTAR U-100 INSULIN) 100 unit/mL (3 mL) Indications: Uncontrolled type 1 diabetes mellitus with hypoglycemia without coma (HCC) Inject 40 Units subcutaneously every morning. 4 Each 1 07/07/2022 Active Start: 03-03-2022 End: 08-18-2022 Insulin Glargine (Lantus Jovana ostar U-100 Insulin) 100 unit/mL (3 mL) insulin pen Discontinued 50 U SC EVERY EVENING 15 March 03, 2022 12:00am August 18, 2022 12:11pm Start: 01-27-2022 End: [...] 18, 2019 12:00am November 26, 2020 11:58am long acting insulin Start: 12-22-2017 End: 01-17-2019 Insulin Glargine (Basaglar K michaelakpen U-100 Insulin) 100 unit/mL (3 mL) insulin pen Discontinued 30 U SC daily 12 September 01, 2018 11:20am January 17, 2019 5:51pm Type 1 diabetes mellitus without complications e10.9 Start: 11-16-2016 BASAGLAR KWIKP EN 100 UNIT/ML SOPN Use 30 units daily. INSULIN GLARGINE [id number] Edwina Quintero NP Start: 11-16-2016 BASAGLAR KWIKP EN 100 UNIT/ML SOPN Use 30 units daily. INSULIN GLARGINE [id number] Edwina Quintero NP Start: 10-19-2016 End: 01-20-2017 Insulin Glargine (Lantus Jovana ostar U-100 Insulin) 100 UNITS/ML Pen Discontinued 30 U SQ AT BEDTIME 5 0 December 08, 2016 9:24am January 20, 2017 [...] SOPN Use 30 units daily. INSULIN GLARGINE [id number] Edwina Quintero NP Comment on above: Inject 40 Units subc utaneously every morning. Insulin Glargine (Lantus U-100 Insulin) 100 unit/mL Cartridge (18 sources) Start: 2022 End: 03-03-2022 Insulin Glargine [...] Use with insulin pens. INSULIN PEN NEEDLE [id number] Edwina Quintero NP isopropyl alcohol 0.7 ml/ml [...] times daily naproxen 500 mg oral tablet (5 sources) Nonsteroidal Anti-inflammatory Drug Start: 5 End: 5 take 1 tablet by mouth twice daily Naproxen 500 mg tablet Discontinued 500 mg PO TWICE A DAY 10 December 12, 2024 12:00am December 14, 2024 2:13am Nut.Tx.Gluc Intol,Lf,Soy-Fiber (Glucerna 1.2 Reid) 120 ML Liquid (19 sources) Start: 7 End: 7 take 1 mL by mouth four times daily Nut.Tx.Gluc Intol,Lf,Soy-Fiber (Glucerna 1.2 Reid) 120 ML Liquid Discontinued 120 mL PO 4 TIMES DAILY 0 January 20, 2017 12:00am January 28, 2017 9:54am Start: 01-20-2017 End: 01-28-2017 take 1 mL by mouth four times daily Nut.Tx.Gluc Intol,Lf,Soy-Fiber (Glucerna 1.2 Reid) 120 ML Liquid Discontinued 120 mL PO 4 TIMES DAILY January 20, 2017 12:00am January 28, 2017 9:54am Start: 01-20-2017 End: 01-28-2017 take 1 mL by mouth four times daily Nut.Tx.Gluc Intol,Lf,Soy-Fiber (Glucerna 1.2 Reid) 120 ML Liquid Discontinued 120 ML PO 4 TIMES DAILY January 19, 2017 11:00pm January 28, 2017 8:54am Start: 01-20-2017 End: 01-28-2017 take 1 mL by mouth four times daily Nut.Tx.Gluc Intol,Lf,Soy-Fiber (Glucerna 1.2 Reid) 120 ML Liquid Discontinued 120 ML PO 4 TIMES DAILY January 20, 2017 12:00am January 28, 2017 9:54am pantoprazole 40 mg delayed release oral tablet (18 sources) Proton Pump Inhibitor Start: 08-20-2022 End: 10-19-2024 take 1 tablet by mouth once daily Pantoprazole (Protonix) 40 mg tablet,delayed release (DR/EC) Discontinued 40 mg PO DAILY 60 0 August 20, 2022 1:00am October 19, 2024 3:37am Comment on above: DAILY microencapsulated potassium chloride 20 meq extended release oral tablet (18 sources) Start: 08-20-2022 End: 10-19-2024 Potassium Chloride (Klor-Con M20) 20 mEq Tablet,Er Particles/Crystals Discontinued 20 meq PO TWICE DAILY WITH MEALS 60 30 0 August 20, 2022 1:00am October 19, 2024 3:37am Comment on above: TWICE DAILY WITH YAYA LS sertraline 100 mg oral tablet (20 sources) Serotonin Reuptake Inhibitor Start: 03-05-2021 End: 10-19-2024 take 1 tablet by mouth once daily Sertraline 100 mg tablet Discontinued 100 mg PO DAILY March 05, 2021 12:00am October 19, 2024 3:37am DEPRESSION Start: 01-18-2019 End: 11-25-2020 take 1 tablet by mouth once daily Sertraline 50 MG tablet Discontinued 50 mg PO DAILY 30 0 January 18, 2019 12:00am November 25, 2020 1:19pm Comment on above: Take 1 tablet by truong th once daily. sulfamethoxazole 800 mg / trimethoprim 160 mg oral tablet (20 sources) Dihydrofolate Reductase Inhibitor Antibacterial, Sulfonamide Antimicrobial Start: 03-08-2021 End: 01-19-2022 Sulfamethoxazole-Trime thoprim (Bactrim Ds) 800-160 mg tablet Discontinued 1 {tbl} PO TWICE A DAY 20 0 March 08, 2021 12:00am January 19, 2022 10:07am Start: 01-11-2017 End: 01-20-2017 Sulfamethoxazole-Trimethopri m 1 TABLET tablet Discontinued 1 {tbl} PO TWICE A DAY 28 0 January 11, 2017 12:00am January 20, 2017 [...] neuraxis] Onset: 03-20-2018 03-23-2018 Chronic Anxiety disorders (20 sources) Mixed anxiety and depressive disorder; Translations: [Anxiety disorder, unspecified] Chronic Cardiac dysrhythmias (20 sources) Palpitations; Translations: [Palpitations] Onset: 01-31-2025 07-01-2022 Episodic Chronic ulcer of skin (19 sources) Skin ulcer; Translations: [Non-pressure chronic ulcer of skin of other sites with fat layer exposed] 01-17-2019 Chronic Deficiency and other anemia (19 sources) Anemia; Translations: [Anemia, unspecified] 01-17-2019 Episodic Developmental disorders (17 sources) Learning difficulties; Translations: [Developmental disorder of [...] [Lactic acidosis] Onset: 03-20-2018 Episodic Gastrointestinal hemorrhage (20 sources) Hematemesis - cause unknown; Translations: [Hematemesis] Episodic Nausea and vomiting (20 sources) Vomiting; Translations: [Vomiting, unspecified] Onset: 12-19-2024 01-17-2019 Episodic Nonspecific chest pain (20 sources) Chest pain; Translations: [Chest pain, unspecified] Onset: 10-30-2024 Episodic Other connective tissue disease (5 sources) Rotator cuff impingement syndrome; Translations: [Impingement syndrome of left shoulder] 12-12-2024 Episodic Other fractures (1 source) Compression fracture of vertebral column; Translations: [Collapsed vertebra, not elsewhere classified, site unspecified, initial encounter for fracture] Episodic Other gastrointestinal disorders (14 sources) Celiac disease; Translations: [Celiac disease] Onset: 01-16-2013 03-20-2018 Chronic Other injuries and conditions due to external causes (19 sources) Abrasion and/or friction burn of multiple sites; Translations: [Unspecified multiple injuries, initial encounter] 01-27-2022 Episodic Other nervous system disorders (14 sources) Neuropathy; Translations: [Polyneuropathy, unspecified] 08-24-2022 Chronic Other non-traumatic joint disorders (1 source) Pain in left shoulder; Translations: [Pain in left shoulder] Onset: 12-15-2024 Episodic Other nutritional; endocrine; and metabolic disorders (18 sources) Hyperphosphatemia; Translations: [Other disorders of phosphorus [...] conditions (not mental disorders or infectious disease) (20 sources) Pseudohyponatremia; Translations: [Other specified abnormal findings of blood chemistry] Onset: 10-10-2024 Episodic Residual codes; unclassified (19 sources) Tobacco use and exposure - finding; Translations: [Tobacco use] 01-17-2019 Episodic Residual codes; unclassified (20 sources) Noncompliance with medication regimen; Translations: [Patient's other noncompliance with medication regimen] 08-18-2022 Episodic Residual codes; unclassified (7 sources) Patient's other noncompliance with medication regimen; Translations: [Personal history of noncompliance with medical treatment, presenting hazards to health] Episodic Septicemia (except in labor) (19 sources) Sepsis; Translations: [Sepsis, unspecified organism] 03-16-2021 Episodic Skin and subcutaneous tissue infections (20 sources) Abscess of abdominal wall; Translations: [Cutaneous abscess of abdominal wall] 01-17-2019 Episodic Sprains and strains (19 sources) Lower back injury; Translations: [Strain of muscle, fascia and tendon of lower back, initial encounter] 02-08-2022 Episodic Superficial injury; contusion (20 sources) Contusion of lower limb; Translations: [Contusion of unspecified lower leg, initial encounter] 01-27-2022 Episodic Syncope (19 sources) Near syncope; Translations: [Syncope and collapse] 01-17-2019 Episodic Unclassified (1 source) Unknown / UNK(Unknown) Onset: 03-23-2018 Unclassified (1 source) APPOINTMENT CANCELLED Viral infection (15 sources) Disease caused by 2019-nCoV; Translations: [COVID-19] 07-07-2022 Episodic Past or Other Problems Problem Classification [...] consciousness, initial encounter] Onset: 03-20-2018 03-23-2018 Episodic Skull and face fractures (15 sources) Fracture of vault of skull, initial encounter for closed fracture; Translations: [Fracture of parietal bone] Onset: 03-20-2018 03-23-2018 Episodic Unclassified (1 source) Unspecified intracranial injury without loss of consciousness, initial encounter Onset: 03-20-2018 Results Test Name Value Interpretation Reference Range Facility Absolute lymphocyte countOrd ered By: Arik Boswell on 02-27-2025 Lymphocytes Auto (Unsp spec) [#/Vol] 2.53 10*3/uL 0.83-4.51 [facility] Absolute neutrophil countOrd ered By: Arik Boswell on 02-27-2025 Neutrophils (Bld) [#/Vol] 5.2 10*3/uL 2.0-7.7 [facility] Anion gap in Serum or Plasma Ordered By: Arik Boswell on 02-27-2025 Anion gap [Moles/Vol] 22 mmol/L High 5-15 [facility] Automated lymphocyte count a s percentage of total leukocytesOrdered By: Arik Boswell on 02-27-2025 Lymphocytes/100 WBC Auto (Unsp spec) 28.6 % 19-41 [facility] BUN/creatinine ratioOrdered By: Arik Boswell on 02-27-2025 Urea nitrogen/Creatinine [Mass ratio] 11.0 mg/mg 10-20 [facility] Basophil percentageOrdered B y: Arik Boswell on 02-27-2025 Basophils/100 WBC (Bld) 0.8 % 0-1 [facility] Bilirubin Test strip Ql (U)O rdered By: Arik Boswell on 02-27-2025 Bilirubin Ql (U) Negative Negative [facility] Carbon dioxide, total [Moles /volume] in Central venous bloodOrdered By: Arik Boswell on 02-27-2025 CO2 [Moles/Vol] 15.6 mmol/L Low 21.0-32.0 [facility] Chloride assayOrdered By: Dhiraj Boswell on 02-27-2025 Chloride [Moles/Vol] 91 mmol/L Low 98-108 [facility] Eosinophil percentageOrdered By: Arik Boswell on 02-27-2025 Eosinophils/100 WBC (Bld) 3.4 % 0-5 [facility] Erythrocyte distribution wid th ratioOrdered By: Arikerica Boswell on 02-27-2025 Erythrocyte distribution width (RBC) [Ratio] 17.4 % High 11.6-14.6 [facility] Erythrocyte distribution wid th standard deviationOrdered By: Arikerica Bosewll on 02-27-2025 Erythrocyte distribution width (RBC) [Ratio] 51.4 fl High 35.1-43.9 [facility] Glomerular filtration rate ( GFR) estimation/1.73 sq m using serum, plasma, or whole bOrdered By: Arik Boswell on 02-27-2025 GFR/1.73 sq M.predicted among non-blacks MDRD (S/P/Bld) [Vol rate/Area] 103 mL/min/{1.73_m2} >60 [facility] Comment on above: mL/min/1.73m2 CKD-EP I Creatinine Equation (2020) Hematocrit Auto (Bld) [Volum e fraction]Ordered By: Arikerica Boswell on 02-27-2025 Hematocrit (Bld) [Volume fraction] 40.1 % 40-54 [facility] Hemoglobin measurementOrdere d By: Arik Boswell on 02-27-2025 Hemoglobin (Bld) [Mass/Vol] 12.0 g/dL Low 13.0-16.5 [facility] Immature granulocytes/100 WB C Auto (Bld)Ordered By: Arik Boswell on 02-27-2025 Immature granulocytes/100 WBC (Bld) 0.500 % 0.0-0.9 [facility] Comment on above: IG% - Immature Granu locytes (promyelocytes, myelocytes and metamyelocytes) > 1% indicates that a LEFT SHIFT is Present. Ketones Test strip Ql (U)Ord ered By: Arik Boswell on 02-27-2025 Ketones Ql (U) 50 mg/dl High Negative [facility] MCV (mean corpuscular volume ) determinationOrdered By: Arik Boswell on 02-27-2025 MCV (RBC) [Entitic vol] 81.2 fL 80-94 [facility] Mean corpuscular hemoglobin (MCH) determinationOrdered By: Arik Boswell on 02-27-2025 MCH (RBC) [Entitic mass] 24.3 pg Low 27.0-32.0 [facility] Mean corpuscular hemoglobin concentration (MCHC) determinationOrdered By: Arik Boswell on 02-27-2025 MCHC (RBC) [Mass/Vol] 29.9 g/dL Low 32-36 [facility] Mean platelet volume determi nationOrdered By: Arik Boswell on 02-27-2025 Platelet mean volume (Bld) [Entitic vol] 11.1 fL 6.2-12.0 [facility] Microscopic analysis of urin e for red blood cells (RBC)Ordered By: Arik Boswell on 02-27-2025 Microscopic analysis of urine for red blood cells (RBC) 0-5 SEEN /hpf 0-5 [facility] Monocyte percentageOrdered B y: Arik Boswell on 02-27-2025 Monocytes/100 WBC (Bld) 7.6 % 0-10 [facility] Mucus LM Ql (Urine sed)Order ed By: Arik Boswell on 02-27-2025 Mucus Ql (Urine sed) 0 SEEN /hpf [facility] Neutrophil percentageOrdered By: Arik Boswell on 02-27-2025 Neutrophils/100 WBC (Bld) 59.1 % 47-70 [facility] Nitrite Test strip Ql (U)Ord ered By: Arik Boswell on 02-27-2025 Nitrite Ql (U) Negative Negative [facility] Nucleated red blood cell per centageOrdered By: Arik Boswell on 02-27-2025 Nucleated RBC/100 WBC (Bld) [Ratio] 0 % 0-5 [facility] Platelet countOrdered By: Dhiraj Boswell on 02-27-2025 Platelets (Bld) [#/Vol] 268 10*3/uL 150-450 [facility] Potassium measurement (mass/ volume)Ordered By: Arik Boswell on 02-27-2025 Potassium (Unsp spec) [Mass/Vol] 5.3 mmol/L High 3.3-5.1 [facility] Protein Test strip Ql (U)Ord ered By: Arik Boswell on 02-27-2025 Protein Ql (U) 15 mg/dl High Negative [facility] RBC Auto (Bld) [#/Vol]Ordere d By: Arik Boswell on 02-27-2025 RBC (Bld) [#/Vol] 4.94 10*6/uL 4.6-6.2 [facility] Serum creatinine measurement (mass/volume)Ordered By: Arik Boswell on 02-27-2025 Creatinine [Mass/Vol] 1.02 mg/dL 0.70-1.20 [facility] Serum glucose measurement (m ass/volume)Ordered By: Arik Boswell on 02-27-2025 Glucose [Mass/Vol] 865 mg/dL High 70-99 [facility] Comment on above: Critical Result(s) C alled at: 02/27/2025-14:22 by: Koko Oh to Dr. Boswell. Results read back by same. Serum or plasma calcium koby urement (mass/volume)Ordered By: Arik Boswell on 02-27-2025 Calcium [Mass/Vol] 8.4 mg/dL 7.6-11.0 [facility] Serum or plasma urea nitroge n measurement (mass/volume)Ordered By: Arik Boswell on 02-27-2025 Urea nitrogen [Mass/Vol] 11 mg/dL 4-19 [facility] Sodium levelOrdered By: Arik Boswell on 02-27-2025 Sodium [Moles/Vol] 129 mmol/L Low 133-145 [facility] Squamous epithelial cells de tection in urine sediment by light microscopyOrdered By: Arik Boswell on 02-27-2025 Epithelial cells.squamous LM Ql (Urine sed) 0-5 SEEN /hpf 0-5 [facility] Urine clarityOrdered By: Arik Boswell on 02-27-2025 Clarity (U) Clear Clear [facility] Urine color determinationOrd ered By: Arik Boswell on 02-27-2025 Color (U) Straw Yellow [facility] Urine glucose detectionOrder ed By: Arik Boswell on 02-27-2025 Glucose Ql (U) 1000 mg/dl High Normal [facility] Urine leukocyte esterase det ection by dipstickOrdered By: Arik Boswell on 02-27-2025 Leukocyte esterase Test strip Ql (U) Negative Negative [facility] Urine pHOrdered By: Arik maldonado on 02-27-2025 pH (U) 6.0 [pH] 5.0 - 8.0 [facility] Urine sediment bacteria coun t by microscopy (number/high power field)Ordered By: Arik Boswell on 02-27-2025 Bacteria LM.HPF (Urine sed) [#/Area] 0 /[HPF] None Seen [facility] Urine specific gravity measu rementOrdered By: Arik Boswell on 02-27-2025 Specific gravity (U) [Rel density] 1.010 1.002-1.03 0 [facility] Urine urobilinogen measureme ntOrdered By: Arik Boswell on 02-27-2025 Urobilinogen Ql (U) Normal mg/dl Normal [facility] White blood cell (WBC) count Ordered By: Arik Boswell on 02-27-2025 WBC (Bld) [#/Vol] 8.8 10*3/uL 4.4-11.0 [facility] White blood cell countOrdere d By: Arik Boswell on 02-27-2025 White blood cell count 0-5 SEEN /hpf 0-5 [facility] Basic Metabolic Profile (BMP )on 02-07-2025 BUN Normal 4-19 [facility] Comment on above: Result Comment: Canc elled via OM: Order cancelled - Patient discharged Performed By: #### L 100.0100, L300.8000, L501.9520, L505.5000, L500.2500 #### [facility] [address] [place], [address] BUN/CRE Normal 10-20 [facility] Comment on above: Result Comment: Canc elled via OM: Order cancelled - Patient discharged Performed By: #### L 100.0100, L300.8000, L501.9520, L505.5000, L500.2500 #### [facility] [address] [place], [address] Calcium Normal 7.6-11.0 [facility] Comment on above: Result Comment: Canc elled via OM: Order cancelled - Patient discharged Performed By: #### L 100.0100, L300.8000, L501.9520, L505.5000, L500.2500 #### [facility] [address] [place], [address] CL Normal 98-108 [facility] Comment on above: Result Comment: Canc elled via OM: Order cancelled - Patient discharged Performed By: #### L 100.0100, L300.8000, L501.9520, L505.5000, L500.2500 #### [facility] [address] [place], [address] CO2 Normal 21.0-32.0 [facility] Comment on above: Result Comment: Canc elled via OM: Order cancelled - Patient discharged Performed By: #### L 100.0100, L300.8000, L501.9520, L505.5000, L500.2500 #### [facility] [address] [place], [address] CREAT,SERUM Normal 0.70-1.20 [facility] Comment on above: Result Comment: Canc elled via OM: Order cancelled - Patient discharged Performed By: #### L 100.0100, L300.8000, L501.9520, L505.5000, L500.2500 #### [facility] [address] [place], [address] eGFR Normal >60 [facility] Comment on above: Result Comment: Canc elled via OM: Order cancelled - Patient discharged Performed By: #### L 100.0100, L300.8000, L501.9520, L505.5000, L500.2500 #### [facility] [address] [place], [address] GAP Normal 5-15 [facility] Comment on above: Result Comment: Canc elled via OM: Order cancelled - Patient discharged Performed By: #### L 100.0100, L300.8000, L501.9520, L505.5000, L500.2500 #### [facility] [address] [place], [address] GLU Normal 70-99 [facility] Comment on above: Result Comment: Canc elled via OM: Order cancelled - Patient discharged Performed By: #### L 100.0100, L300.8000, L501.9520, L505.5000, L500.2500 #### [facility] [address] [place], [address] Potassium Normal 3.3-5.1 [facility] Comment on above: Result Comment: Canc elled via OM: Order cancelled - Patient discharged Performed By: #### L 100.0100, L300.8000, L501.9520, L505.5000, L500.2500 #### [facility] [address] [place], [address] Basic Metabolic Profile (BMP) Normal 133-145 [facility] Comment on above: Result Comment: Canc elled via OM: Order cancelled - Patient discharged Performed By: #### L 100.0100, L300.8000, L501.9520, L505.5000, L500.2500 #### [facility] [address] [place], [address] Basic Metabolic Profile (BMP )on 02-06-2025 BUN Normal 4-19 [facility] Comment on above: Result Comment: Canc elled via OM: Order cancelled - Patient discharged Performed By: #### L 100.0100, L300.8000, L501.9520, L505.5000, L500.2500 #### [facility] [address] [place], [address] BUN/CRE Normal 10-20 [facility] Comment on above: Result Comment: Canc elled via OM: Order cancelled - Patient discharged Performed By: #### L 100.0100, L300.8000, L501.9520, L505.5000, L500.2500 #### [facility] [address] [place], [address] Calcium Normal 7.6-11.0 [facility] Comment on above: Result Comment: Canc elled via OM: Order cancelled - Patient discharged Performed By: #### L 100.0100, L300.8000, L501.9520, L505.5000, L500.2500 #### [facility] [address] [place], [address] CL Normal 98-108 [facility] Comment on above: Result Comment: Canc elled via OM: Order cancelled - Patient discharged Performed By: #### L 100.0100, L300.8000, L501.9520, L505.5000, L500.2500 #### [facility] [address] [place], [address] CO2 Normal 21.0-32.0 [facility] Comment on above: Result Comment: Canc elled via OM: Order cancelled - Patient discharged Performed By: #### L 100.0100, L300.8000, L501.9520, L505.5000, L500.2500 #### [facility] [address] [place], [address] CREAT,SERUM Normal 0.70-1.20 [facility] Comment on above: Result Comment: Canc elled via OM: Order cancelled - Patient discharged Performed By: #### L 100.0100, L300.8000, L501.9520, L505.5000, L500.2500 #### [facility] [address] [place], [address] eGFR Normal >60 [facility] Comment on above: Result Comment: Canc elled via OM: Order cancelled - Patient discharged Performed By: #### L 100.0100, L300.8000, L501.9520, L505.5000, L500.2500 #### [facility] [address] [place], [address] GAP Normal 5-15 [facility] Comment on above: Result Comment: Canc elled via OM: Order cancelled - Patient discharged Performed By: #### L 100.0100, L300.8000, L501.9520, L505.5000, L500.2500 #### [facility] [address] [place], [address] GLU Normal 70-99 [facility] Comment on above: Result Comment: Canc elled via OM: Order cancelled - Patient discharged Performed By: #### L 100.0100, L300.8000, L501.9520, L505.5000, L500.2500 #### [facility] [address] [place], [address] Potassium Normal 3.3-5.1 [facility] Comment on above: Result Comment: Canc elled via OM: Order cancelled - Patient discharged Performed By: #### L 100.0100, L300.8000, L501.9520, L505.5000, L500.2500 #### [facility] [address] [place], [address] Basic Metabolic Profile (BMP) Normal 133-145 [facility] Comment on above: Result Comment: Canc elled via OM: Order cancelled - Patient discharged Performed By: #### L 100.0100, L300.8000, L501.9520, L505.5000, L500.2500 #### [facility] [address] [place], [address] BUN Normal 4-19 [facility] Comment on above: Order Comment: Call MD with results STAT Result Comment: Canc elled via OM: MD Ordered Performed By: #### L 500.2500 ####[facility] [address] [place], [address] BUN/CRE Normal 10-20 [facility] Comment on above: Order Comment: Call MD with results STAT Result Comment: Canc elled via OM: MD Ordered Performed By: #### L 500.2500 ####[facility] [address] [place], [address] Calcium Normal 7.6-11.0 [facility] Comment on above: Order Comment: Call MD with results STAT Result Comment: Canc elled via OM: MD Ordered Performed By: #### L 500.2500 ####[facility] [address] [place], [address] CL Normal 98-108 [facility] Comment on above: Order Comment: Call MD with results STAT Result Comment: Canc elled via OM: MD Ordered Performed By: #### L 500.2500 ####[facility] [address] [place], [address] CO2 Normal 21.0-32.0 [facility] Comment on above: Order Comment: Call MD with results STAT Result Comment: Canc elled via OM: MD Ordered Performed By: #### L 500.2500 ####[facility] [address] [place], [address] CREAT,SERUM Normal 0.70-1.20 [facility] Comment on above: Order Comment: Call MD with results STAT Result Comment: Canc elled via OM: MD Ordered Performed By: #### L 500.2500 ####[facility] [address] [place], [address] eGFR Normal >60 [facility] Comment on above: Order Comment: Call MD with results STAT Result Comment: Canc elled via OM: MD Ordered Performed By: #### L 500.2500 ####[facility] [address] [place], [address] GAP Normal 5-15 [facility] Comment on above: Order Comment: Call MD with results STAT Result Comment: Canc elled via OM: MD Ordered Performed By: #### L 500.2500 ####[facility] [address] [place], [address] GLU Normal 70-99 [facility] Comment on above: Order Comment: Call MD with results STAT Result Comment: Canc elled via OM: MD Ordered Performed By: #### L 500.2500 ####[facility] [address] [place], [address] Potassium Normal 3.3-5.1 [facility] Comment on above: Order Comment: Call MD with results STAT Result Comment: Canc elled via OM: MD Ordered Performed By: #### L 500.2500 ####[facility] [address] [place], [address] Basic Metabolic Profile (BMP) Normal 133-145 [facility] Comment on above: Order Comment: Call MD with results STAT Result Comment: Canc elled via OM: MD Ordered Performed By: #### L 500.2500 ####[facility] [address] [place], [address] BUN Normal 4-19 [facility] Comment on above: Order Comment: Call MD with results STAT Result Comment: Canc elled via OM: MD Ordered Performed By: #### L 100.0100, L300.8000, L501.9520, L505.5000, L500.2500 #### [facility] [address] [place], [address] BUN/CRE Normal 10-20 [facility] Comment on above: Order Comment: Call MD with results STAT Result Comment: Canc elled via OM: MD Ordered Performed By: #### L 100.0100, L300.8000, L501.9520, L505.5000, L500.2500 #### [facility] [address] [place], [address] Calcium Normal 7.6-11.0 [facility] Comment on above: Order Comment: Call MD with results STAT Result Comment: Canc elled via OM: MD Ordered Performed By: #### L 100.0100, L300.8000, L501.9520, L505.5000, L500.2500 #### [facility] [address] [place], [address] CL Normal 98-108 [facility] Comment on above: Order Comment: Call MD with results STAT Result Comment: Canc elled via OM: MD Ordered Performed By: #### L 100.0100, L300.8000, L501.9520, L505.5000, L500.2500 #### [facility] [address] [place], [address] CO2 Normal 21.0-32.0 [facility] Comment on above: Order Comment: Call MD with results STAT Result Comment: Canc elled via OM: MD Ordered Performed By: #### L 100.0100, L300.8000, L501.9520, L505.5000, L500.2500 #### [facility] [address] [place], [address] CREAT,SERUM Normal 0.70-1.20 [facility] Comment on above: Order Comment: Call MD with results STAT Result Comment: Canc elled via OM: MD Ordered Performed By: #### L 100.0100, L300.8000, L501.9520, L505.5000, L500.2500 #### [facility] [address] [place], [address] eGFR Normal >60 [facility] Comment on above: Order Comment: Call MD with results STAT Result Comment: Canc elled via OM: MD Ordered Performed By: #### L 100.0100, L300.8000, L501.9520, L505.5000, L500.2500 #### [facility] [address] [place], [address] GAP Normal 5-15 [facility] Comment on above: Order Comment: Call MD with results STAT Result Comment: Canc elled via OM: MD Ordered Performed By: #### L 100.0100, L300.8000, L501.9520, L505.5000, L500.2500 #### [facility] [address] [place], [address] GLU Normal 70-99 [facility] Comment on above: Order Comment: Call MD with results STAT Result Comment: Canc elled via OM: MD Ordered Performed By: #### L 100.0100, L300.8000, L501.9520, L505.5000, L500.2500 #### [facility] [address] [place], [address] Potassium Normal 3.3-5.1 [facility] Comment on above: Order Comment: Call MD with results STAT Result Comment: Canc elled via OM: MD Ordered Performed By: #### L 100.0100, L300.8000, L501.9520, L505.5000, L500.2500 #### [facility] [address] [place], [address] Basic Metabolic Profile (BMP) Normal 133-145 [facility] Comment on above: Order Comment: Call MD with results STAT Result Comment: Canc elled via OM: MD Ordered Performed By: #### L 100.0100, L300.8000, L501.9520, L505.5000, L500.2500 #### [facility] [address] [place], [address] CBC W/Diff, Automatedon 07-0 Absolute Neut Normal 2.0-7.7 [facility] Comment on above: Result Comment: Canc elled via OM: Order cancelled - Patient discharged Performed By: #### L 100.0100, L300.8000, L501.9520, L505.5000, L500.2500 #### [facility] [address] [place], [address] HCT Normal 40-54 [facility] Comment on above: Result Comment: Canc elled via OM: Order cancelled - Patient discharged Performed By: #### L 100.0100, L300.8000, L501.9520, L505.5000, L500.2500 #### [facility] [address] [place], [address] HGB Normal 13.0-16.5 [facility] Comment on above: Result Comment: Canc elled via OM: Order cancelled - Patient discharged Performed By: #### L 100.0100, L300.8000, L501.9520, L505.5000, L500.2500 #### [facility] [address] [place], [address] MCH Normal 27.0-32.0 [facility] Comment on above: Result Comment: Canc elled via OM: Order cancelled - Patient discharged Performed By: #### L 100.0100, L300.8000, L501.9520, L505.5000, L500.2500 #### [facility] [address] [place], [address] MCHC Normal 32-36 [facility] Comment on above: Result Comment: Canc elled via OM: Order cancelled - Patient discharged Performed By: #### L 100.0100, L300.8000, L501.9520, L505.5000, L500.2500 #### [facility] [address] [place], [address] MCV Normal 80-94 [facility] Comment on above: Result Comment: Canc elled via OM: Order cancelled - Patient discharged Performed By: #### L 100.0100, L300.8000, L501.9520, L505.5000, L500.2500 #### [facility] [address] [place], [address] NEUT% Normal 47-70 [facility] Comment on above: Result Comment: Canc elled via OM: Order cancelled - Patient discharged Performed By: #### L 100.0100, L300.8000, L501.9520, L505.5000, L500.2500 #### [facility] [address] [facility] [address] PLT Normal 150-450 [facility] Comment on above: Result Comment: Canc elled via OM: Order cancelled - Patient discharged Performed By: #### L 100.0100, L300.8000, L501.9520, L505.5000, L500.2500 #### [facility] [address] [place] [address] RBC Normal 4.6-6.2 [facility] Comment on above: Result Comment: Canc elled via OM: Order cancelled - Patient discharged Performed By: #### L 100.0100, L300.8000, L501.9520, L505.5000, L500.2500 #### [facility] [address] [place], [address] RDW CV Normal 11.6-14.6 [facility] Comment on above: Result Comment: Canc elled via OM: Order cancelled - Patient discharged Performed By: #### L 100.0100, L300.8000, L501.9520, L505.5000, L500.2500 #### [facility] [address] [facility] [address] RDW SD Normal 35.1-43.9 [facility] Comment on above: Result Comment: Canc elled via OM: Order cancelled - Patient discharged Performed By: #### L 100.0100, L300.8000, L501.9520, L505.5000, L500.2500 #### [facility] [address] [place], [address] WBC Normal 4.4-11.0 [facility] Comment on above: Result Comment: Canc elled via OM: Order cancelled - Patient discharged Performed By: #### L 100.0100, L300.8000, L501.9520, L505.5000, L500.2500 #### [facility] [address] [place], [address] 12 Lead EKGon 02-05-2025 12 Lead EKG [facility] [address] [facility] [place] [address] 12 Lead EKG 02/05/25 0238 MR#: [id number] Acct: [id number] Name: UNA COSBY Rep #: [id number] : 1995 29 From: Robbi Salazar MD Attending Dr: Dr. Alo Zambrano MD Status: DIS IN Ordering Dr: Babita Rivera DO Date: 02/05/25 Location: ICU Sex: M C Admitted: 02/05/25 Test Reason : DYSRHYTHMIA Blood Pressure : */* mmHG Vent. Rate : 112 BPM Atrial Rate : 112 BPM P-R Int : 148 ms QRS Dur : 84 ms QT Int : 314 ms P-R-T Axes : 67 59 54 degrees QTcB Int : 428 ms Sinus tachycardia Otherwise normal ECG Confirmed by ROBBI SALAZAR MD ([id number]), editor in chief newspaper DOMINIC KEENE ([id number]) on 02/06/2025 6:37:13 AM Referred By: Confirmed By: ROBBI SALAZAR MD 02/06/25 0637 Date Robbi Salazar MD CC: Dr. Alo Zambrano MD; Dr. Babita Rivera DO; No Primary Care Physician Signed Normal [place] Absolute lymphocyte countOrd ered By: Sarah White on 02-05-2025 Lymphocytes Auto (Unsp spec) [#/Vol] 4.47 10*3/uL 0.83-4.51 [facility] Absolute lymphocyte countOrd ered By: Remus Ungur on 02-05-2025 Lymphocytes Auto (Unsp spec) [#/Vol] 4.05 10*3/uL 0.83-4.51 [facility] Absolute neutrophil countOrd ered By: Sarah White on 02-05-2025 Neutrophils (Bld) [#/Vol] 6.8 10*3/uL 2.0-7.7 [facility] Absolute neutrophil countOrd ered By: Remus Ungur on 02-05-2025 Neutrophils (Bld) [#/Vol] 7.3 10*3/uL 2.0-7.7 [facility] Anion gap in Serum or Plasma Ordered By: Sarah White on 02-05-2025 Anion gap [Moles/Vol] 7 mmol/L 12-21 [facility] Anion gap in Serum or Plasma Ordered By: Remus Ungur on 02-05-2025 Anion gap [Moles/Vol] 23 mmol/L High 12-21 [facility] Automated lymphocyte count a s percentage of total leukocytesOrdered By: Sarah White on 02-05-2025 Lymphocytes/100 WBC Auto (Unsp spec) 34.1 % [facility] Automated lymphocyte count a s percentage of total leukocytesOrdered By: Remus Ungur on 02-05-2025 Lymphocytes/100 WBC Auto (Unsp spec) 31.1 % [facility] BUN/creatinine ratioOrdered By: Sarah White on 02-05-2025 Urea nitrogen/Creatinine [Mass ratio] 20.0 mg/mg 05-28 [facility] BUN/creatinine ratioOrdered By: Remus Ungur on 02-05-2025 Urea nitrogen/Creatinine [Mass ratio] 19.9 mg/mg 05-28 [facility] Basic Metabolic Profile (BMP )on 02-05-2025 BUN Normal 11-25 [facility] Comment on above: Order Comment: Call MD with results STAT Result Comment: Canc elled via OM: MD Ordered Performed By: #### L 500.2500 ####[facility] [address] [place], [address] BUN/CRE Normal 10-20 [facility] Comment on above: Order Comment: Call MD with results STAT Result Comment: Puneet elled via OM: MD Ordered Performed By: #### L 500.2500 ####[facility] [address] [place], [address] Calcium Normal 7.6-11.0 [facility] Comment on above: Order Comment: Call MD with results STAT Result Comment: Can elled via OM: MD Ordered Performed By: #### L 500.2500 ####[facility] [address] [place], [address] CL Normal 98-108 [facility] Comment on above: Order Comment: Call MD with results STAT Result Comment: Can elled via OM: MD Ordered Performed By: #### L 500.2500 ####[facility] [address] [place], [address] CO2 Normal 21.0-32.0 [facility] Comment on above: Order Comment: Call MD with results STAT Result Comment: Can elled via OM: MD Ordered Performed By: #### L 500.2500 ####[facility] [address] [place], [address] CREAT,SERUM Normal 0.70-1.20 [facility] Comment on above: Order Comment: Call MD with results STAT Result Comment: Candanielle elled via OM: MD Ordered Performed By: #### L 500.2500 ####[facility] [address] [place], [address] eGFR Normal >60 [facility] Comment on above: Order Comment: Call MD with results STAT Result Comment: Candanielle elled via OM: MD Ordered Performed By: #### L 500.2500 ####[facility] [address] [place], [address] GAP Normal 5-15 [facility] Comment on above: Order Comment: Call MD with results STAT Result Comment: Canc elled via OM: MD Ordered Performed By: #### L 500.2500 ####[facility] [address] [place], [address] GLU Normal 70-99 [facility] Comment on above: Order Comment: Call MD with results STAT Result Comment: Canc elled via OM: MD Ordered Performed By: #### L 500.2500 ####[facility] [address] [place], [address] Potassium Normal 3.3-5.1 [facility] Comment on above: Order Comment: Call MD with results STAT Result Comment: Canc elled via OM: MD Ordered Performed By: #### L 500.2500 ####[facility] [address] [place], [address] Basic Metabolic Profile (BMP) Normal 133-145 [facility] Comment on above: Order Comment: Call MD with results STAT Result Comment: Canc elled via OM: MD Ordered Performed By: #### L 500.2500 ####[facility] [address] [place], [address] BUN Normal 4-19 [facility] Comment on above: Order Comment: Call MD with results STAT Result Comment: Canc elled via OM: MD Ordered Performed By: #### L 500.2500 ####[facility] [address] [place], [address] BUN/CRE Normal 10-20 [facility] Comment on above: Order Comment: Call MD with results STAT Result Comment: Canc elled via OM: MD Ordered Performed By: #### L 500.2500 ####[facility] [address] [place], [address] Calcium Normal 7.6-11.0 [facility] Comment on above: Order Comment: Call MD with results STAT Result Comment: Canc elled via OM: MD Ordered Performed By: #### L 500.2500 ####[facility] [address] [place], [address] CL Normal 98-108 [facility] Comment on above: Order Comment: Call MD with results STAT Result Comment: Canc elled via OM: MD Ordered Performed By: #### L 500.2500 ####[facility] [address] [place], [address] CO2 Normal 21.0-32.0 [facility] Comment on above: Order Comment: Call MD with results STAT Result Comment: Canc elled via OM: MD Ordered Performed By: #### L 500.2500 ####[facility] [address] [place], [address] CREAT,SERUM Normal 0.70-1.20 [facility] Comment on above: Order Comment: Call MD with results STAT Result Comment: Canc elled via OM: MD Ordered Performed By: #### L 500.2500 ####[facility] [address] [place], [address] eGFR Normal >60 [facility] Comment on above: Order Comment: Call MD with results STAT Result Comment: Canc elled via OM: MD Ordered Performed By: #### L 500.2500 ####[facility] [address] [place], [address] GAP Normal 5-15 [facility] Comment on above: Order Comment: Call MD with results STAT Result Comment: Canc elled via OM: MD Ordered Performed By: #### L 500.2500 ####[facility] [address] [place], [address] GLU Normal 70-99 [facility] Comment on above: Order Comment: Call MD with results STAT Result Comment: Canc elled via OM: MD Ordered Performed By: #### L 500.2500 ####[facility] [address] [place], [address] Potassium Normal 3.3-5.1 [facility] Comment on above: Order Comment: Call MD with results STAT Result Comment: Puneet craft via OM: MD Ordered Performed By: #### L 500.2500 ####[facility] [address] [place], [address] Basic Metabolic Profile (BMP) Normal 133-145 [facility] Comment on above: Order Comment: Call MD with results STAT Result Comment: Puneet craft via OM: MD Ordered Performed By: #### L 500.2500 ####[facility] [address] [place], [address] BUN/CRE 20.0 RATIO Normal 10-20 [facility] Comment on above: Order Comment: Call MD with results STAT Performed By: #### L 100.0100, L300.8000, L501.9520, L505.5000, L500.2500 #### [facility] [address] [place], [address] Calcium [Mass/Vol] 7.7 mg/dL Normal 7.6-11.0 [facility] Comment on above: Order Comment: Call MD with results STAT Performed By: #### L 100.0100, L300.8000, L501.9520, L505.5000, L500.2500 #### [facility] [address] [place], [address] Chloride [Moles/Vol] 105 mmol/L Normal 98-108 [facility] Comment on above: Order Comment: Call MD with results STAT Performed By: #### L 100.0100, L300.8000, L501.9520, L505.5000, L500.2500 #### [facility] [address] [place], [address] CO2 [Moles/Vol] 26.0 mmol/L Normal 21.0-32.0 [facility] Comment on above: Order Comment: Call MD with results STAT Performed By: #### L 100.0100, L300.8000, L501.9520, L505.5000, L500.2500 #### [facility] [address] [place], [address] Creatinine [Mass/Vol] 0.51 mg/dL Low 0.70-1.20 [facility] Comment on above: Order Comment: Call MD with results STAT Performed By: #### L 100.0100, L300.8000, L501.9520, L505.5000, L500.2500 #### [facility] [address] [place], [address] ECRCL 188.95 ml/min Normal 50-250 [facility] Comment on above: Order Comment: Call MD with results STAT Performed By: #### L 100.0100, L300.8000, L501.9520, L505.5000, L500.2500 #### [facility] [address] [place], [address] GAP 7 Normal 5-15 [facility] Comment on above: Order Comment: Call MD with results STAT Performed By: #### L 100.0100, L300.8000, L501.9520, L505.5000, L500.2500 #### [facility] [address] [place], [address] GFR/1.73 sq M.predicted among non-blacks MDRD (S/P/Bld) [Vol rate/Area] 142 mL/min/{1.73_m2} Normal >60 [facility] Comment on above: Order Comment: Call MD with results STAT Result Comment: mL/m in/1.73m2 CKD-EPI Creatinine Equation (2020) Performed By: #### L 100.0100, L300.8000, L501.9520, L505.5000, L500.2500 #### [facility] [address] [place], [address] Glucose [Mass/Vol] 170 mg/dL High 70-99 [facility] Comment on above: Order Comment: Call MD with results STAT Performed By: #### L 100.0100, L300.8000, L501.9520, L505.5000, L500.2500 #### [facility] [address] [place], [address] Potassium [Moles/Vol] 3.4 mmol/L Normal 3.3-5.1 [facility] Comment on above: Order Comment: Call MD with results STAT Performed By: #### L 100.0100, L300.8000, L501.9520, L505.5000, L500.2500 #### [facility] [address] [place], [address] Sodium [Moles/Vol] 137 mmol/L Normal 133-145 [facility] Comment on above: Order Comment: Call MD with results STAT Performed By: #### L 100.0100, L300.8000, L501.9520, L505.5000, L500.2500 #### [facility] [address] [place], [address] Urea nitrogen [Mass/Vol] 10 mg/dL Normal 4-19 [facility] Comment on above: Order Comment: Call MD with results STAT Performed By: #### L 100.0100, L300.8000, L501.9520, L505.5000, L500.2500 #### [facility] [address] [place], [address] BUN/CRE 20.0 RATIO Normal 10-20 [facility] Comment on above: Order Comment: Call MD with results STAT Performed By: #### L 500.2500 ####[facility] [address] [place], [address] Calcium [Mass/Vol] 8.2 mg/dL Normal 7.6-11.0 [facility] Comment on above: Order Comment: Call MD with results STAT Performed By: #### L 500.2500 ####[facility] [address] [place], [address] Chloride [Moles/Vol] 106 mmol/L Normal 98-108 [facility] Comment on above: Order Comment: Call MD with results STAT Performed By: #### L 500.2500 ####[facility] [address] [place], [address] CO2 [Moles/Vol] 26.0 mmol/L Normal 21.0-32.0 [facility] Comment on above: Order Comment: Call MD with results STAT Performed By: #### L 500.2500 ####[facility] [address] [place], [address] Creatinine [Mass/Vol] 0.61 mg/dL Low 0.70-1.20 [facility] Comment on above: Order Comment: Call MD with results STAT Performed By: #### L 500.2500 ####[facility] [address] [place], [address] ECRCL 157.97 ml/min Normal 50-250 [facility] Comment on above: Order Comment: Call MD with results STAT Performed By: #### L 500.2500 ####[facility] [address] [place], [address] GAP 9 Normal 5-15 [facility] Comment on above: Order Comment: Call MD with results STAT Performed By: #### L 500.2500 ####[facility] [address] [place], [address] GFR/1.73 sq M.predicted among non-blacks MDRD (S/P/Bld) [Vol rate/Area] 135 mL/min/{1.73_m2} Normal >60 [facility] Comment on above: Order Comment: Call MD with results STAT Result Comment: mL/m in/1.73m2 CKD-EPI Creatinine Equation (2020) Performed By: #### L 500.2500 ####[facility] [address] [place], [address] Glucose [Mass/Vol] 155 mg/dL High 70-99 [facility] Comment on above: Order Comment: Call MD with results STAT Performed By: #### L 500.2500 ####[facility] [address] [place], [address] Potassium [Moles/Vol] 3.9 mmol/L Normal 3.3-5.1 [facility] Comment on above: Order Comment: Call MD with results STAT Performed By: #### L 500.2500 ####[facility] [address] [place], [address] Sodium [Moles/Vol] 141 mmol/L Normal 133-145 [facility] Comment on above: Order Comment: Call MD with results STAT Performed By: #### L 500.2500 ####[facility] [address] [place], [address] Urea nitrogen [Mass/Vol] 12 mg/dL Normal 4-19 [facility] Comment on above: Order Comment: Call MD with results STAT Performed By: #### L 500.2500 ####[facility] [address] [place], [address] BUN/CRE 23.2 RATIO High 10-20 [facility] Comment on above: Order Comment: Call MD with results STAT Performed By: #### L 100.0100, L300.8000, L501.9520, L505.5000, L500.2500 #### [facility] [address] [place], [address] Calcium [Mass/Vol] 8.0 mg/dL Normal 7.6-11.0 [facility] Comment on above: Order Comment: Call MD with results STAT Performed By: #### L 100.0100, L300.8000, L501.9520, L505.5000, L500.2500 #### [facility] [address] [place], [address] Chloride [Moles/Vol] 103 mmol/L Normal 98-108 [facility] Comment on above: Order Comment: Call MD with results STAT Performed By: #### L 100.0100, L300.8000, L501.9520, L505.5000, L500.2500 #### [facility] [address] [place], [address] CO2 [Moles/Vol] 22.9 mmol/L Normal 21.0-32.0 [facility] Comment on above: Order Comment: Call MD with results STAT Performed By: #### L 100.0100, L300.8000, L501.9520, L505.5000, L500.2500 #### [facility] [address] [place], [address] Creatinine [Mass/Vol] 0.61 mg/dL Low 0.70-1.20 [facility] Comment on above: Order Comment: Call MD with results STAT Performed By: #### L 100.0100, L300.8000, L501.9520, L505.5000, L500.2500 #### [facility] [address] [place], [address] ECRCL 157.97 ml/min Normal 50-250 [facility] Comment on above: Order Comment: Call MD with results STAT Performed By: #### L 100.0100, L300.8000, L501.9520, L505.5000, L500.2500 #### [facility] [address] [place], [address] GAP 12 Normal 5-15 [facility] Comment on above: Order Comment: Call MD with results STAT Performed By: #### L 100.0100, L300.8000, L501.9520, L505.5000, L500.2500 #### [facility] [address] [place], [address] GFR/1.73 sq M.predicted among non-blacks MDRD (S/P/Bld) [Vol rate/Area] 135 mL/min/{1.73_m2} Normal >60 [facility] Comment on above: Order Comment: Call MD with results STAT Result Comment: mL/m in/1.73m2 CKD-EPI Creatinine Equation (2020) Performed By: #### L 100.0100, L300.8000, L501.9520, L505.5000, L500.2500 #### [facility] [address] [place], [address] Glucose [Mass/Vol] 248 mg/dL High 70-99 [facility] Comment on above: Order Comment: Call MD with results STAT Performed By: #### L 100.0100, L300.8000, L501.9520, L505.5000, L500.2500 #### [facility] [address] [place], [address] Potassium [Moles/Vol] 3.7 mmol/L Normal 3.3-5.1 [facility] Comment on above: Order Comment: Call MD with results STAT Performed By: #### L 100.0100, L300.8000, L501.9520, L505.5000, L500.2500 #### [facility] [address] [place], [address] Sodium [Moles/Vol] 137 mmol/L Normal 133-145 [facility] Comment on above: Order Comment: Call MD with results STAT Performed By: #### L 100.0100, L300.8000, L501.9520, L505.5000, L500.2500 #### [facility] [address] [place], [address] Urea nitrogen [Mass/Vol] 14 mg/dL Normal 4-19 [facility] Comment on above: Order Comment: Call MD with results STAT Performed By: #### L 100.0100, L300.8000, L501.9520, L505.5000, L500.2500 #### [facility] [address] [place], [address] BUN/CRE 19.9 RATIO Normal 10-20 [facility] Comment on above: Performed By: #### L 100.0100, L300.8000, L501.9520, L505.5000, L500.2500 #### [facility] [address], [address] Calcium [Mass/Vol] 10.0 mg/dL Normal 7.6-11.0 [facility] Comment on above: Performed By: #### L 100.0100, L300.8000, L501.9520, L505.5000, L500.2500 #### [facility] [address] [place], [address] Chloride [Moles/Vol] 86 mmol/L Low 98-108 [facility] Comment on above: Performed By: #### L 100.0100, L300.8000, L501.9520, L505.5000, L500.2500 #### [facility] [address] [place], [address] CO2 [Moles/Vol] 19.6 mmol/L Low 21.0-32.0 [facility] Comment on above: Performed By: #### L 100.0100, L300.8000, L501.9520, L505.5000, L500.2500 #### [facility] [address] [place], [address] Creatinine [Mass/Vol] 0.97 mg/dL Normal 0.70-1.20 [facility] Comment on above: Performed By: #### L 100.0100, L300.8000, L501.9520, L505.5000, L500.2500 #### [facility] [address] [place], [address] ECRCL 99.02 ml/min Normal 50-250 [facility] Comment on above: Performed By: #### L 100.0100, L300.8000, L501.9520, L505.5000, L500.2500 #### [facility] [address] [place], [address] GAP 23 High 5-15 [facility] Comment on above: Performed By: #### L 100.0100, L300.8000, L501.9520, L505.5000, L500.2500 #### [facility] [address] [place], [address] GFR/1.73 sq M.predicted among non-blacks MDRD (S/P/Bld) [Vol rate/Area] 110 mL/min/{1.73_m2} Normal >60 [facility] Comment on above: Result Comment: mL/m in/1.73m2 CKD-EPI Creatinine Equation (2020) Performed By: #### L 100.0100, L300.8000, L501.9520, L505.5000, L500.2500 #### [facility] [address] [place], [address] Glucose [Mass/Vol] 736 mg/dL Invalid Interpretation Code 70-99 [facility] Comment on above: Result Comment: Crit ical Result(s) Called at: 02/05/2025-03:34 by: Koko Oh to Casimiro Cast.??Results read back by same. Performed By: #### L 100.0100, L300.8000, L501.9520, L505.5000, L500.2500 #### [facility] [address] [place], [address] Potassium [Moles/Vol] 4.5 mmol/L Normal 3.3-5.1 [facility] Comment on above: Performed By: #### L 100.0100, L300.8000, L501.9520, L505.5000, L500.2500 #### [facility] [address] [place], [address] Sodium [Moles/Vol] 128 mmol/L Low 133-145 [facility] Comment on above: Performed By: #### L 100.0100, L300.8000, L501.9520, L505.5000, L500.2500 #### [facility] [address] [place], [address] Urea nitrogen [Mass/Vol] 19 mg/dL Normal 4-19 [facility] Comment on above: Performed By: #### L 100.0100, L300.8000, L501.9520, L505.5000, L500.2500 #### [facility] [address] [place], [address] Basophil percentageOrdered B y: Sarah White on 02-05-2025 Basophils/100 WBC (Bld) 0.6 % 0-1 [facility] Basophil percentageOrdered B y: Remus Ungur on 02-05-2025 Basophils/100 WBC (Bld) 0.7 % 0-1 [facility] Bedside Glucoseon 02-05-2025 FINGERSTICK GLU 138 mg/dL High 74-106 [facility] Comment on above: Result Comment: TEJAL GEMENT OF PATIENT CARE PER NURSING PROTOCOL Performed By: #### L 100.0100, L300.8000, L501.9520, L505.5000, L500.2500 #### [facility] [address] [place], [address] FINGERSTICK GLU 149 mg/dL High 74-106 [facility] Comment on above: Result Comment: TEJAL GEMENT OF PATIENT CARE PER NURSING PROTOCOL Performed By: #### L 501.080 ####[facility] [address] [place], [address] FINGERSTICK GLU 169 mg/dL High 74-106 [facility] Comment on above: Result Comment: TEJAL GEMENT OF PATIENT CARE PER NURSING PROTOCOL Performed By: #### L 100.0100, L300.8000, L501.9520, L505.5000, L500.2500 #### [facility] [address] [place], [address] FINGERSTICK GLU 158 mg/dL High 74-106 [facility] Comment on above: Result Comment: TEJAL GEMENT OF PATIENT CARE PER NURSING PROTOCOL Performed By: #### L 100.0100, L300.8000, L501.9520, L505.5000, L500.2500 #### [facility] [address], [address] FINGERSTICK GLU 139 mg/dL High [address] [place] [address] Comment on above: Result Comment: TEJAL GEMENT OF PATIENT CARE PER NURSING PROTOCOL Performed By: #### L 100.0100, L300.8000, L501.9520, L505.5000, L500.2500 #### [facility] [address] [place], [address] FINGERSTICK GLU 159 mg/dL High [address] [place] [address] Comment on above: Result Comment: TEJAL GEMENT OF PATIENT CARE PER NURSING PROTOCOL Performed By: #### L 100.0100, L300.8000, L501.9520, L505.5000, L500.2500 #### [facility] [address] [place], [address] FINGERSTICK GLU 181 mg/dL High [address] [place] [address] Comment on above: Result Comment: TEJAL GEMENT OF PATIENT CARE PER NURSING PROTOCOL Performed By: #### L 501.080 ####[facility] [address] [place], [address] FINGERSTICK GLU 308 mg/dL High [address] [place] [address] Comment on above: Result Comment: TEJAL GEMENT OF PATIENT CARE PER NURSING PROTOCOL Performed By: #### L 100.0100, L300.8000, L501.9520, L505.5000, L500.2500 #### [facility] [address] [place], [address] FINGERSTICK GLU 269 mg/dL High [address] [place] [address] Comment on above: Result Comment: TEJAL GEMENT OF PATIENT CARE PER NURSING PROTOCOL Performed By: #### L 100.0100, L300.8000, L501.9520, L505.5000, L500.2500 #### [facility] [address] [place], [address] FINGERSTICK GLU 430 mg/dL High 74-106 [facility] Comment on above: Result Comment: TEJAL STAHLENT OF PATIENT CARE PER NURSING PROTOCOL Performed By: #### L 100.0100, L300.8000, L501.9520, L505.5000, L500.2500 #### [facility] [address] [place], [address] FINGERSTICK GLU > 500 Invalid Interpretation Code 74-106 [facility] Comment on above: Result Comment: Dr Erica egan Followed MANAGEMENT OF PATIENT CARE PER NURSING PROTOCOL Performed By: #### L 100.0100, L300.8000, L501.9520, L505.5000, L500.2500 #### [facility] [address] [place], [address] Beta-Hydroxbytyrateon 2024 BETA-HYDROXYBUT 5.5 mmol/L High 0.0-0.3 [facility] Comment on above: Performed By: #### L 100.0100, L300.8000, L501.9520, L505.5000, L500.2500 #### [facility] [address] [place], [address] Beta-hydroxybutyrateOrdered By: Babita Rivera on 02-05-2025 Beta hydroxybutyrate [Mass/Vol] 5.5 mmol/L High 0.0-0.3 [facility] Bilirubin Test strip Ql (U)O rdered By: Remus Rivera on 02-05-2025 Bilirubin Ql (U) Negative Negative [facility] Blood manual differential co mment interpretation (narrative result)Ordered By: Remus Rivera on 02-05-2025 Manual differential comment Gigi (Bld) [Interp] SCANNED [facility] CBC W/Diff, Automatedon 01-09 ATYPICAL LYMPH 1+ Normal [facility] Comment on above: Performed By: #### L 100.0100, L300.8000, L501.9520, L505.5000, L500.2500 #### [facility] [address] [place], [address] SMEAR COMMENT SCANNED Normal [facility] Comment on above: Performed By: #### L 100.0100, L300.8000, L501.9520, L505.5000, L500.2500 #### [facility] [address] [place], [address] Carbon dioxide, total [Moles /volume] in Central venous bloodOrdered By: Sarah Oh on 02-05-2025 CO2 [Moles/Vol] 26.0 mmol/L 21.0-32.0 [facility] Carbon dioxide, total [Moles /volume] in Central venous bloodOrdered By: Babita Rivera on 02-05-2025 CO2 [Moles/Vol] 19.6 mmol/L Low 21.0-32.0 [facility] Chloride assayOrdered By: Jaimie Oh on 02-05-2025 Chloride [Moles/Vol] 105 mmol/L 98-108 [facility] Chloride assayOrdered By: Cata Rivera on 02-05-2025 Chloride [Moles/Vol] 86 mmol/L Low 98-108 [facility] Emergency Department Summary on 02-05-2025 Emergency Department Summary [facility] Medical Records Department [address] [place] [address] Emergency Department Summary 02/05/25 MR#: [id number] Acct: [id number] Name: UNA COSBY Rep #: [id number] : 1995 29 From: Babita Rivera DO PCP: Care Physician,No Primary Status:ADM IN Location: ICU [id number] HPI History of Present Illness Chief Complaint: Hyperglycemia Detail of Chief Complaint: Hyperglycemia and vomiting Informant: patient Narrative Narrative: Patient presents to the emergency department complaint of vomiting that started around 6 PM. He vomited a total of 4 times. He denies diarrhea. He is a type I diabetic. Earlier in the day his blood glucose was 200 and he took his meds. Afterwards his meter read high. For EMS meter reads high. For arrival in the emergency department meter read high. Patient has history of DKA. He denies recent illness. He denies fevers or chills or sweats. [facility] Medical History (Updated 02/05/25 @ 03:[address] Babita Rivera, DO) Noncompliance with medication regimen Anxiety and depression [...] 10/19/24 Unknown History mL 31 gauge x 5/16 ([employer]plus Insulin) ondansetron 8 mg disintegrating 8 mg PO Q8H PRN nausea and 5 Unknown Rx tablet vomiting #12 tabs Allergy/AdvReac Type Severity Reaction Status Date / Time No Known Allergies Allergy Verified 02/05/25 02:24 Family History Father Diabetes Surgical History H/O skin graft Social History household members: family Smoking Status: Current some day smoker tobacco type: cigarettes, e-cigarettes and smokeless tobacco Smokeless tobacco user: chewing tobacco second hand exposure: Yes alcohol intake: never substance use type: does not use ROS ROS ED Review of Systems ROS Unobtainable: other Constitutional Constitutional ED: Reports lethargy; Denies chills, fever(s), sweats or weight loss Eyes Eyes: Denies blurry vision, change in vision or diplopia ENT ENT ED: Denies rhinorrhea or sore throat Cardiovascular Cardiovascular: Denies chest pain, orthopnea or racing heartbeat Respiratory/Chest Respiratory/Chest: Denies cough, dyspnea, dyspnea on exertion, orthopnea or sputum Gastrointestinal Gastrointestinal: Reports nausea and vomiting; Denies abdominal pain or diarrhea Genitourinary Genitourinary ED: Denies dysuria, hematuria or urinary frequency Musculoskeletal Musculoskeletal: Denies arthralgias, back pain, myalgias or neck pain Integumentary Denies abscess, Abrasions or rash Neurologic Neurologic: Denies headache(s) or weakness Psychiatric Psychiatric: Denies anxiety, depression or suicidal thoughts Endocrine Endocrinology: Denies polydipsia, polyphagia or polyuria Hematologic/Lymphatic Hematologic/Lymphatic: Denies easy bleeding, easy bruising or lymphadenopathy Allergic/Immunologic Allergic/Immunologic ED: Denies mouth swelling, tongue swelling or urticaria EXAM Physical Exam Const Vital Signs: 02/05/25 02:20 Temperature 98.6 F Temperature Source Oral Pulse Rate 118 H Respiratory Rate 20 H Pulse Ox 98 Oxygen Delivery Method Room Air Positive well nourished and well developed General Appearance ED: well developed and NAD HEENT Reports TM's clear and moist mucous membranes normocephalic and atraumatic; Negative for trauma or tenderness Tympanic Membrane ED: Yes TM's clear Eyes PERRL and EOMs intact bilaterally General Eye ED: Negative for pale conjunctiva or scleral icterus Neck no lymphadenopathy, supple and no JVD General: Negative for tenderness Chest Wall inspection of chest normal and palpation of chest normal Chest: Negative for tenderness Resp normal respiratory effort and clear to auscultation bilaterally Effort and Inspection: Negative for respiratory distress or pain with movement Auscultation: Negative for rhonchi, wheezes or diminished lung sounds Ca (more content not included)... Normal [facility] Eosinophil percentageOrdered By: White on 02-05-2025 Eosinophils/100 WBC (Bld) 4.2 % 0-5 [facility] Eosinophil percentageOrdered By: Remus Ungur on 02-05-2025 Eosinophils/100 WBC (Bld) 3.4 % 0-5 [facility] Erythrocyte distribution wid th ratioOrdered By: White on 02-05-2025 Erythrocyte distribution width (RBC) [Ratio] 16.2 % High 11.6-14.6 [facility] Erythrocyte distribution wid th ratioOrdered By: Babita Rivera on 02-05-2025 Erythrocyte distribution width (RBC) [Ratio] 16.2 % High 11.6-14.6 [facility] Erythrocyte distribution wid th standard deviationOrdered By: Sarah Oh on 02-05-2025 Erythrocyte distribution width (RBC) [Ratio] 44.2 fl High 35.1-43.9 [facility] Erythrocyte distribution wid th standard deviationOrdered By: Babita Rivera on 02-05-2025 Erythrocyte distribution width (RBC) [Ratio] 45.2 fl High 35.1-43.9 [facility] Glomerular filtration rate ( GFR) estimation/1.73 sq m using serum, plasma, or whole bOrdered By: Sarah Oh on 02-05-2025 GFR/1.73 sq M.predicted among non-blacks MDRD (S/P/Bld) [Vol rate/Area] 142 mL/min/{1.73_m2} >60 [facility] Comment on above: mL/min/1.73m2 CKD-EP I Creatinine Equation (2020) Glomerular filtration rate ( GFR) estimation/1.73 sq m using serum, plasma, or whole bOrdered By: Babita Rivera on 02-05-2025 GFR/1.73 sq M.predicted among non-blacks MDRD (S/P/Bld) [Vol rate/Area] 110 mL/min/{1.73_m2} >60 [facility] Comment on above: mL/min/1.73m2 CKD-EP I Creatinine Equation (2020) [facility] deOrdered By: Alo Zambrano on 02-05-2025 Glucose [Mass/Vol] 138 mg/dL High 74-106 [facility] Comment on above: MANAGEMENT OF PATIEN T CARE PER NURSING PROTOCOL [facility] deOrdered By: Sarah Oh on 02-05-2025 Glucose [Mass/Vol] 430 mg/dL High 74-106 [facility] Comment on above: MANAGEMENT OF PATIEN T CARE PER NURSING PROTOCOL [facility] H&P Exam - Hospitalist [facility] Medical Records Department [address] [place] [address] H P Exam - Hospitalist 02/05/25 0343 MR#: [id number] Acct: [id number] Name: UNA COSBY Rep #: [id number] : 1995 29 From: Sarah Oh MD PCP: Care Physician,No Primary Status:ADM IN Location: ICU [id number] HPI - General General Date of Admission: 02/05/25 Date of Service: 02/05/25 Chief Complaint: N/V, elevated BS. HPI Narrative The patient is a 29 y/o M w/ PMHx: Chronic microcytic anemia, IDDM, Anxiety and Depression, Chronic cognitive impairment with learning debilities chart reported, Tobacco use who presents to the [facility] ED on 02/05/2025 with history of [...] 1 and initiated on an insulin drip. [facility] Medical History Noncompliance with medication regimen [...] 10/19/24 Unknown History mL 31 gauge x 5/16 (TRUEplus Insulin) ondansetron 8 mg disintegrating 8 [...] Examination: Gene (more content not included)... Normal [facility] Hematocrit Auto (Bld) [Volum e fraction]Ordered By: Sarah Oh on 02-05-2025 Hematocrit (Bld) [Volume fraction] 32.5 % Low 40-54 [facility] Hematocrit Auto (Bld) [Volum e fraction]Ordered By: Babita Rivera on 02-05-2025 Hematocrit (Bld) [Volume fraction] 39.3 % Low 40-54 [facility] Hemoglobin A1con 02-05-2025 HbA1c (Bld) [Mass fraction] 15.5 % High <=5.6 [facility] Comment on above: Result Comment: Norm al < 5.7 % Prediabetic 5.7 - 6.4 % Diabetic >or= 6.5 % Please note range changes. Performed By: #### L 100.0100, L300.8000, L501.9520, L505.5000, L500.2500 #### [facility] [address] [place] [address]. [place], [place], [id number] Hemoglobin A1c percentageOrd ered By: Sarah Oh on 02-05-2025 HbA1c (Bld) [Mass fraction] 15.5 % High <5.7 [facility] Comment on above: Normal < 5.7 % Predi abetic 5.7 - 6.4 % Diabetic >or= 6.5 % Please note range changes. Hemoglobin measurementOrdere d By: Sarah Oh on 02-05-2025 Hemoglobin (Bld) [Mass/Vol] 10.4 g/dL Low 13.0-16.5 [facility] Hemoglobin measurementOrdere d By: Babita Rivera on 02-05-2025 Hemoglobin (Bld) [Mass/Vol] 12.3 g/dL Low 13.0-16.5 [facility] Immature granulocytes/100 WB C Auto (Bld)Ordered By: Sarah Oh on 02-05-2025 Immature granulocytes/100 WBC (Bld) 0.300 % 0.0-0.9 [facility] Comment on above: IG% - Immature Granu locytes (promyelocytes, myelocytes and metamyelocytes) > 1% indicates that a LEFT SHIFT is Present. Immature granulocytes/100 WB C Auto (Bld)Ordered By: Babita Rivera on 02-05-2025 Immature granulocytes/100 WBC (Bld) 0.200 % 0.0-0.9 [facility] Comment on above: IG% - Immature Granu locytes (promyelocytes, myelocytes and metamyelocytes) > 1% indicates that a LEFT SHIFT is Present. Ketones Test strip Ql (U)Ord ered By: Babita Rivera on 02-05-2025 Ketones Ql (U) 150 mg/dl Abnormal Negative [facility] Comment on above: CRITICAL VALUE *HCRI TICAL VALUE CALLED TO [id number]/30/25 0443 Serafin Bell.RESULTS READ BACK BY SAME. [id number] 02-05-2025 M8200.1000 Normal Reference Ran ge = Negative MRSA DNA Nose Ql LM+probe GeneXpert Instrument, PCR method MRSA PCR MRSA NEGATIVE Normal [facility] Comment on above: Performed By: #### L 100.0100, L300.8000, L501.9520, L505.5000, L500.2500 #### [facility] [address] [place] [address], [id number] MCV (mean corpuscular volume ) determinationOrdered By: Sarah Oh on 02-05-2025 MCV (RBC) [Entitic vol] 75.8 fL Low 80-94 [facility] MCV (mean corpuscular volume ) determinationOrdered By: Babita Rivera on 02-05-2025 MCV (RBC) [Entitic vol] 76.6 fL Low 80-94 [facility] Magnesiumon 02-05-2025 Magnesium [Mass/Vol] 1.9 mg/dL Normal 1.5-2.2 [facility] Comment on above: Order Comment: Comme nts: may add to ED labs Performed By: #### L 100.0100, L300.8000, L501.9520, L505.5000, L500.2500 #### [facility] [address] [place], [address] Magnesium measurement (mass/ volume)Ordered By: Sarah Oh on 02-05-2025 Magnesium (Unsp spec) [Mass/Vol] 1.9 mg/dL 1.5-2.2 [facility] Mean corpuscular hemoglobin (MCH) determinationOrdered By: Sarah Oh on 02-05-2025 MCH (RBC) [Entitic mass] 24.2 pg Low 27.0-32.0 [facility] Mean corpuscular hemoglobin (MCH) determinationOrdered By: Babita Rivera on 02-05-2025 MCH (RBC) [Entitic mass] 24.0 pg Low 27.0-32.0 [facility] Mean corpuscular hemoglobin concentration (MCHC) determinationOrdered By: Sarah Oh on 02-05-2025 MCHC (RBC) [Mass/Vol] 32.0 g/dL 32-36 [facility] Mean corpuscular hemoglobin concentration (MCHC) determinationOrdered By: Babita Rivera on 02-05-2025 MCHC (RBC) [Mass/Vol] 31.3 g/dL Low 32-36 [facility] Mean platelet volume determi nationOrdered By: Sarah Oh on 02-05-2025 Platelet mean volume (Bld) [Entitic vol] 10.8 fL 6.2-12.0 [facility] Mean platelet volume determi nationOrdered By: Babita Rivera on 02-05-2025 Platelet mean volume (Bld) [Entitic vol] 11.4 fL 6.2-12.0 [facility] Microscopic analysis of urin e for red blood cells (RBC)Ordered By: Babita Rivera on 02-05-2025 Microscopic analysis of urine for red blood cells (RBC) 0-5 SEEN /hpf 0-5 [facility] Monocyte percentageOrdered B y: Sarah Oh on 02-05-2025 Monocytes/100 WBC (Bld) 8.5 % 0-10 [facility] Monocyte percentageOrdered B y: Babita Rivera on 02-05-2025 Monocytes/100 WBC (Bld) 9.0 % 0-10 [facility] Mucus LM Ql (Urine sed)Order ed By: Babita Rivera on 02-05-2025 Mucus Ql (Urine sed) 0 SEEN /hpf [facility] Nasal methicillin resistant Staphylococcus aureus (MRSA) DNA detection by PCROrdered By: Sarah Oh on 02-05-2025 MRSA DNA LM+probe Ql (Nose) [facility] Neutrophil percentageOrdered By: Sarah White on 02-05-2025 Neutrophils/100 WBC (Bld) 52.3 % [facility] Neutrophil percentageOrdered By: Babita Ungrowan on 02-05-2025 Neutrophils/100 WBC (Bld) 55.6 % [facility] Nucleated red blood cell per centageOrdered By: Sarah Oh on 02-05-2025 Nucleated RBC/100 WBC (Bld) [Ratio] 0 % 0-5 [facility] Nucleated red blood cell per centageOrdered By: Babita Rivera on 02-05-2025 Nucleated RBC/100 WBC (Bld) [Ratio] 0 % 0-5 [facility] Phosphoruson 02-05-2025 Phosphate [Mass/Vol] 4.6 mg/dL High 2.7-4.5 [facility] Comment on above: Order Comment: Comme nts: May add to ED labs Performed By: #### L 100.0100, L300.8000, L501.9520, L505.5000, L500.2500 #### [facility] [address] [place], [place], [phone] Platelet countOrdered By: Jaimie Oh on 02-05-2025 Platelets (Bld) [#/Vol] 297 10*3/uL 150-450 [facility] Platelet countOrdered By: Cata Rivera on 02-05-2025 Platelets (Bld) [#/Vol] 344 10*3/uL 150-450 [facility] Potassium measurement (mass/ volume)Ordered By: Sarah Oh on 02-05-2025 Potassium (Unsp spec) [Mass/Vol] 3.4 mmol/L 3.3-5.1 [facility] Potassium measurement (mass/ volume)Ordered By: Babita Rivera on 02-05-2025 Potassium (Unsp spec) [Mass/Vol] 4.5 mmol/L 3.3-5.1 [facility] Protein Test strip Ql (U)Ord ered By: Babita Rivera on 02-05-2025 Protein Ql (U) 30 mg/dl High Negative [facility] RBC Auto (Bld) [#/Vol]Ordere d By: Sarah Oh on 02-05-2025 RBC (Bld) [#/Vol] 4.29 10*6/uL Low 4.6-6.2 [facility] RBC Auto (Bld) [#/Vol]Ordere d By: Babita Rivera on 02-05-2025 RBC (Bld) [#/Vol] 5.13 10*6/uL 4.6-6.2 [facility] Serum creatinine measurement (mass/volume)Ordered By: Sarah Oh on 02-05-2025 Creatinine [Mass/Vol] 0.51 mg/dL Low 0.70-1.20 [facility] Serum creatinine measurement (mass/volume)Ordered By: Babita Rivera on 02-05-2025 Creatinine [Mass/Vol] 0.97 mg/dL 0.70-1.20 [facility] Serum glucose measurement (m ass/volume)Ordered By: Sarah Oh on 02-05-2025 Glucose [Mass/Vol] 170 mg/dL High 70-99 [facility] Serum glucose measurement (m ass/volume)Ordered By: Babita Rivera on 02-05-2025 Glucose [Mass/Vol] 736 mg/dL High 70-99 [facility] Comment on above: Critical Result(s) C alled at: 02/05/2025-03:34 by: Koko Oh to Casimiro Cast. Results read back by same. Serum or plasma calcium koby urement (mass/volume)Ordered By: Sarah Oh on 02-05-2025 Calcium [Mass/Vol] 7.7 mg/dL 7.6-11.0 [facility] Serum or plasma calcium koby urement (mass/volume)Ordered By: Babita Rivera on 02-05-2025 Calcium [Mass/Vol] 10.0 mg/dL 7.6-11.0 [facility] Serum or plasma urea nitroge n measurement (mass/volume)Ordered By: Sarah Oh on 02-05-2025 Urea nitrogen [Mass/Vol] 10 mg/dL 11-25 [facility] Serum or plasma urea nitroge n measurement (mass/volume)Ordered By: Remus Ungrowan on 02-05-2025 Urea nitrogen [Mass/Vol] 19 mg/dL 11-25 [facility] Sodium levelOrdered By: Edwin Oh on 02-05-2025 Sodium [Moles/Vol] 137 mmol/L 133-145 [facility] Sodium levelOrdered By: Lupeu s Miguel on 02-05-2025 Sodium [Moles/Vol] 128 mmol/L Low 133-145 [facility] Squamous epithelial cells de tection in urine sediment by light microscopyOrdered By: Remus Miguel on 02-05-2025 Epithelial cells.squamous LM Ql (Urine sed) 0 SEEN /hpf 0-5 [facility] Urinalysis, Completeon 02-05 KETONE UR 150 mg/dl Abnormal Negative [facility] Comment on above: Order Comment: CLEAN CATCH Result Comment: CRIT ICAL VALUE *H CRITICAL VALUE CALLED TO SOLITARIO 02/05/25 0443 Serafin Bell. RESULTS READ BACK BY SAME. Performed By: #### L 100.0100, L300.8000, L501.9520, L505.5000, L500.2500 #### [facility] [address] [place], [place], [id number] RBC 0-5 SEEN Normal 0-5 [facility] Comment on above: Order Comment: CLEAN CATCH Performed By: #### L 100.0100, L300.8000, L501.9520, L505.5000, L500.2500 #### [facility] [address] [place], [place], [id number] BILIRUBIN URINE Negative Normal Negative [facility] Comment on above: Order Comment: CLEAN CATCH Performed By: #### L 100.0100, L300.8000, L501.9520, L505.5000, L500.2500 #### [facility] [address] [place], [address] GLUCOSE, UR 1000 mg/dl Abnormal Normal [facility] Comment on above: Order Comment: CLEAN CATCH Performed By: #### L 100.0100, L300.8000, L501.9520, L505.5000, L500.2500 #### [facility] [address] [place], [address] LEUK ESTERASE Negative Normal Negative [facility] Comment on above: Order Comment: CLEAN CATCH Performed By: #### L 100.0100, L300.8000, L501.9520, L505.5000, L500.2500 #### [facility] [address] [place], [address] OCCULT BLOOD-UR 25 /ul Abnormal Negative [facility] Comment on above: Order Comment: CLEAN CATCH Performed By: #### L 100.0100, L300.8000, L501.9520, L505.5000, L500.2500 #### [facility] [address] [place], [address] pH UR 6.0 Normal 5.0 - 8.0 [facility] Comment on above: Order Comment: CLEAN CATCH Performed By: #### L 100.0100, L300.8000, L501.9520, L505.5000, L500.2500 #### [facility] [address] [place], [address] PROT DIPSTX 30 mg/dl Abnormal Negative [facility] Comment on above: Order Comment: CLEAN CATCH Performed By: #### L 100.0100, L300.8000, L501.9520, L505.5000, L500.2500 #### [facility] [address] [place], [address] SP.GR. DIPSTX 1.010 Normal 1.002-1.03 0 [facility] Comment on above: Order Comment: CLEAN CATCH Performed By: #### L 100.0100, L300.8000, L501.9520, L505.5000, L500.2500 #### [facility] [address] [place], [address] UROBILI Normal Normal Normal [facility] Comment on above: Order Comment: CLEAN CATCH Performed By: #### L 100.0100, L300.8000, L501.9520, L505.5000, L500.2500 #### [facility] [address] [place], [address] BACTERIA 0 SEEN Normal None Seen [facility] Comment on above: Order Comment: CLEAN CATCH Performed By: #### L 100.0100, L300.8000, L501.9520, L505.5000, L500.2500 #### [facility] [address] [place], [address] EPI,SQUAMOUS 0 SEEN Normal 0-5 [facility] Comment on above: Order Comment: CLEAN CATCH Performed By: #### L 100.0100, L300.8000, L501.9520, L505.5000, L500.2500 #### [facility] [address] [place], [address] Mucus Ql (Urine sed) 0 SEEN Normal [facility] Comment on above: Order Comment: CLEAN CATCH Performed By: #### L 100.0100, L300.8000, L501.9520, L505.5000, L500.2500 #### [facility] [address] [place], [address] WBC 0 SEEN Normal 0-5 [facility] Comment on above: Order Comment: CLEAN CATCH Performed By: #### L 100.0100, L300.8000, L501.9520, L505.5000, L500.2500 #### [facility] [address] [place], [address] Urine clarityOrdered By: Lupe Rivera on 02-05-2025 Clarity (U) Clear Clear [facility] Comment on above: Order Comment: CLEAN CATCH Performed By: #### L 100.0100, L300.8000, L501.9520, L505.5000, L500.2500 #### [facility] [address] [place], [place], [phone] Urine color determinationOrd ered By: Babita Rivera on 02-05-2025 Color (U) Straw Yellow [facility] Comment on above: Order Comment: CLEAN CATCH Performed By: #### L 100.0100, L300.8000, L501.9520, L505.5000, L500.2500 #### [facility] [address] [place], [address] Urine glucose detectionOrder ed By: Babita Rivera on 02-05-2025 Glucose Ql (U) 1000 mg/dl High Normal [facility] Urine leukocyte esterase det ection by dipstickOrdered By: Babita Rivera on 02-05-2025 Leukocyte esterase Test strip Ql (U) Negative Negative [facility] Urine nitrite test by dipsti ckOrdered By: Babita Rivera on 02-05-2025 Nitrite Ql (U) Negative Negative [facility] Comment on above: Order Comment: CLEAN CATCH Performed By: #### L 100.0100, L300.8000, L501.9520, L505.5000, L500.2500 #### [facility] [address] [place], [place], [phone] Urine pHOrdered By: Babita crews on 02-05-2025 pH (U) 6.0 [pH] 5.0 - 8.0 [facility] Urine sediment bacteria coun t by microscopy (number/high power field)Ordered By: Babita Rivera on 02-05-2025 Bacteria LM.HPF (Urine sed) [#/Area] 0 /[HPF] None Seen [facility] Urine specific gravity measu rementOrdered By: Babita Rivera on 02-05-2025 Specific gravity (U) [Rel density] 1.010 1.002-1.03 0 [facility] Urine urobilinogen measureme ntOrdered By: Babita Rivera on 02-05-2025 Urobilinogen Ql (U) Normal mg/dl Normal [facility] White blood cell (WBC) count Ordered By: Sarah Oh on 02-05-2025 WBC (Bld) [#/Vol] 13.1 10*3/uL High 4.4-11.0 [facility] White blood cell (WBC) count Ordered By: Babita Rivera on 02-05-2025 WBC (Bld) [#/Vol] 13.0 10*3/uL High 4.4-11.0 [facility] White blood cell countOrdere d By: Babita Rivera on 02-05-2025 White blood cell count 0 SEEN /hpf 0-5 [facility] 12 Lead EKGon 01-26-2025 12 Lead EKG [facility] Cardiovascular Services [address] [place] [address] 12 Lead EKG 01/26/25 1141 MR#: [id number] Acct: [id number] Name: UNA COSBY Rep #: [id number] : 1995 29 From: Doyle Morales MD [...] enlargement Borderline ECG Confirmed by Doyle Morales ([id number]), editor in chief newspaper COREY MICHAEL ([id number]) on 01/30/2025 12:47:37 PM Referred By: Confirmed By: Doyle Morales 01/30/25 1247 Date Doyle Morales MD CC: Dr. Keisha Handy DO; No Primary Care Physician Signed Normal [facility] Absolute lymphocyte countOrd ered By: Beverly Ca on 01-26-2025 Lymphocytes Auto (Unsp spec) [#/Vol] 3.02 10*3/uL 0.83-4.51 [facility] Absolute neutrophil countOrd ered By: Beverly Lanny on 01-26-2025 Neutrophils (Bld) [#/Vol] 6.1 10*3/uL 2.0-7.7 [facility] Amphetamine detection with 1 000 ng/mL as cutoffOrdered By: Beverly Ca on 01-26-2025 Amphetamines Screen method >1000 ng/mL Ql (U) Negative < 200 ng/mL [facility] Anion gap in Serum or Plasma Ordered By: Beverly Ca on 01-26-2025 Anion gap [Moles/Vol] 13 mmol/L 5-15 [facility] Automated lymphocyte count a s percentage of total leukocytesOrdered By: Beverly Ca on 01-26-2025 Lymphocytes/100 WBC Auto (Unsp spec) 28.9 % - [facility] BUN/creatinine ratioOrdered By: Beverly Ca on 01-26-2025 Urea nitrogen/Creatinine [Mass ratio] 28.2 mg/mg High 10- [facility] Basic Metabolic Profile (BMP )on 01-26-2025 BUN/CRE 28.2 RATIO High [facility] Comment on above: Performed By: #### L 100.0100, L300.8000, L501.9520, L505.5000, L500.2500 #### [facility] [address] [place], [address] Calcium [Mass/Vol] 8.7 mg/dL Normal 7.6-11.0 [facility] Comment on above: Performed By: #### L 100.0100, L300.8000, L501.9520, L505.5000, L500.2500 #### [facility] [address] [place], [address] Chloride [Moles/Vol] 98 mmol/L Normal 98-108 [facility] Comment on above: Performed By: #### L 100.0100, L300.8000, L501.9520, L505.5000, L500.2500 #### [facility] [address] [place], [address] CO2 [Moles/Vol] 22.8 mmol/L Normal 21.0-32.0 [facility] Comment on above: Performed By: #### L 100.0100, L300.8000, L501.9520, L505.5000, L500.2500 #### [facility] [address] [place], [address] Creatinine [Mass/Vol] 0.65 mg/dL Low 0.70-1.20 [facility] Comment on above: Performed By: #### L 100.0100, L300.8000, L501.9520, L505.5000, L500.2500 #### [facility] [address] [place], [address] ECRCL 150.26 ml/min Normal 50-250 [facility] Comment on above: Performed By: #### L 100.0100, L300.8000, L501.9520, L505.5000, L500.2500 #### [facility] [address] [place], [address] GAP 13 Normal 5-15 [facility] Comment on above: Performed By: #### L 100.0100, L300.8000, L501.9520, L505.5000, L500.2500 #### [facility] [address] [place], [address] GFR/1.73 sq M.predicted among non-blacks MDRD (S/P/Bld) [Vol rate/Area] 132 mL/min/{1.73_m2} Normal >60 [facility] Comment on above: Result Comment: mL/m in/1.73m2 CKD-EPI Creatinine Equation (2020) Performed By: #### L 100.0100, L300.8000, L501.9520, L505.5000, L500.2500 #### [facility] [address] [place], [address] Glucose [Mass/Vol] 484 mg/dL Invalid Interpretation Code 70-99 [facility] Comment on above: Result Comment: Kang ical Result(s) Called at: 01/26/2025-12:56 by: Koko Oh to Generi Long.??Results read back by same. Performed By: #### L 100.0100, L300.8000, L501.9520, L505.5000, L500.2500 #### [facility] [address] [place], [address] Potassium [Moles/Vol] 4.3 mmol/L Normal 3.3-5.1 [facility] Comment on above: Performed By: #### L 100.0100, L300.8000, L501.9520, L505.5000, L500.2500 #### [facility] [address] [place], [address] Sodium [Moles/Vol] 133 mmol/L Normal 133-145 [facility] Comment on above: Performed By: #### L 100.0100, L300.8000, L501.9520, L505.5000, L500.2500 #### [facility] [address] [place], [address] Urea nitrogen [Mass/Vol] 18 mg/dL Normal 4-19 [facility] Comment on above: Performed By: #### L 100.0100, L300.8000, L501.9520, L505.5000, L500.2500 #### [facility] [address] [place], [address] Basophil percentageOrdered B y: Beverly Ca on 01-26-2025 Basophils/100 WBC (Bld) 0.6 % 0-1 [facility] Bedside Glucoseon 01-26-2025 FINGERSTICK GLU 189 mg/dL High 74-106 [facility] Comment on above: Result Comment: ETJAL GEMENT OF PATIENT CARE PER NURSING PROTOCOL Performed By: #### L 501.080 #### [facility] [address] [place], [address] FINGERSTICK GLU 290 mg/dL High 74-106 [facility] Comment on above: Result Comment: TEJAL GEMENT OF PATIENT CARE PER NURSING PROTOCOL Performed By: #### L 501.080 #### [facility] [address] [place], [address] FINGERSTICK GLU 475 mg/dL Invalid Interpretation Code 74-106 [facility] Comment on above: Result Comment: Dr Erica egan Followed MANAGEMENT OF PATIENT CARE PER NURSING PROTOCOL Performed By: #### L 100.0100, L300.8000, L501.9520, L505.5000, L500.2500 #### [facility] [address] [place], [address] FINGERSTICK GLU 427 mg/dL High 74-106 [facility] Comment on above: Result Comment: TEJAL GEMENT OF PATIENT CARE PER NURSING PROTOCOL Performed By: #### L 100.0100, L300.8000, L501.9520, L505.5000, L500.2500 #### [facility] [address] [place], [address] Beta-Hydroxbytyrateon 2024 BETA-HYDROXYBUT 1.1 mmol/L High 0.0-0.3 [facility] Comment on above: Performed By: #### L 100.0100, L300.8000, L501.9520, L505.5000, L500.2500 #### [facility] [address] [place], [address] Beta-hydroxybutyrateOrdered By: Beverly Ca on 01-26-2025 Beta hydroxybutyrate [Mass/Vol] 1.1 mmol/L High 0.0-0.3 [facility] CBC W/Diff, Automatedon 01-08 Absolute Lymph 3.02 X10 3/uL Normal 0.83-4.51 [facility] Comment on above: Performed By: #### L 100.0100, L300.8000, L501.9520, L505.5000, L500.2500 #### [facility] [address] [place], [address] Absolute Neut 6.1 X10 3/uL Normal 2.0-7.7 [facility] Comment on above: Performed By: #### L 100.0100, L300.8000, L501.9520, L505.5000, L500.2500 #### [facility] [address] [place], [address] Basophils/100 WBC (Bld) 0.6 % Normal 0-1 [facility] Comment on above: Performed By: #### L 100.0100, L300.8000, L501.9520, L505.5000, L500.2500 #### [facility] [address] [place], [address] Eosinophils/100 WBC (Bld) 5.1 % High 0-5 [facility] Comment on above: Performed By: #### L 100.0100, L300.8000, L501.9520, L505.5000, L500.2500 #### [facility] [address] [place], [address] Erythrocyte distribution width (RBC) [Ratio] 15.8 % High 11.6-14.6 [facility] Comment on above: Performed By: #### L 100.0100, L300.8000, L501.9520, L505.5000, L500.2500 #### [facility] [address] [place], [address] Hematocrit (Bld) [Volume fraction] 38.7 % Low 40-54 [facility] Comment on above: Performed By: #### L 100.0100, L300.8000, L501.9520, L505.5000, L500.2500 #### [facility] [address] [place], [address] Hemoglobin (Bld) [Mass/Vol] 12.4 g/dL Low 13.0-16.5 [facility] Comment on above: Performed By: #### L 100.0100, L300.8000, L501.9520, L505.5000, L500.2500 #### [facility] [address] [place], [address] IG% 0.300 Normal 0.0-0.9 [facility] Comment on above: Result Comment: IG% - Immature Granulocytes (promyelocytes, myelocytes and metamyelocytes) > 1% indicates that a LEFT SHIFT is Present. Performed By: #### L 100.0100, L300.8000, L501.9520, L505.5000, L500.2500 #### [facility] [address] [place], [address] Lymphocytes/100 WBC (Bld) 28.9 % Normal 19-41 [facility] Comment on above: Performed By: #### L 100.0100, L300.8000, L501.9520, L505.5000, L500.2500 #### [facility] [address] [place], [address] MCH (RBC) [Entitic mass] 24.1 pg Low 27.0-32.0 [facility] Comment on above: Performed By: #### L 100.0100, L300.8000, L501.9520, L505.5000, L500.2500 #### [facility] [address] [place], [address] MCHC (RBC) [Mass/Vol] 32.0 g/dL Normal 32-36 [facility] Comment on above: Performed By: #### L 100.0100, L300.8000, L501.9520, L505.5000, L500.2500 #### [facility] [address] [place], [address] MCV (RBC) [Entitic vol] 75.1 fL Low 80-94 [facility] Comment on above: Performed By: #### L 100.0100, L300.8000, L501.9520, L505.5000, L500.2500 #### [facility] [address] [place], [address] Monocytes/100 WBC (Bld) 6.8 % Normal 0-10 [facility] Comment on above: Performed By: #### L 100.0100, L300.8000, L501.9520, L505.5000, L500.2500 #### [facility] [address] [place], [address] Neutrophils/100 WBC (Bld) 58.3 % Normal 47-70 [facility] Comment on above: Performed By: #### L 100.0100, L300.8000, L501.9520, L505.5000, L500.2500 #### [facility] [address] [place], [address] Nucleated RBC (Bld) [#/Vol] 0 10*3/uL Normal 0-5 [facility] Comment on above: Performed By: #### L 100.0100, L300.8000, L501.9520, L505.5000, L500.2500 #### [facility] [address] [place], [address] Platelet mean volume (Bld) [Entitic vol] 10.8 fL Normal 6.2-12.0 [facility] Comment on above: Performed By: #### L 100.0100, L300.8000, L501.9520, L505.5000, L500.2500 #### [facility] [address] [place], [address] Platelets (Bld) [#/Vol] 328 10*3/uL Normal 150-450 [facility] Comment on above: Performed By: #### L 100.0100, L300.8000, L501.9520, L505.5000, L500.2500 #### [facility] [address] [place], [address] RBC (Bld) [#/Vol] 5.15 10*6/uL Normal 4.6-6.2 [facility] Comment on above: Performed By: #### L 100.0100, L300.8000, L501.9520, L505.5000, L500.2500 #### [facility] [address] [place], [address] RDW SD 42.6 fl Normal 35.1-43.9 [facility] Comment on above: Performed By: #### L 100.0100, L300.8000, L501.9520, L505.5000, L500.2500 #### [facility] [address] [place], [address] WBC (Bld) [#/Vol] 10.4 10*3/uL Normal 4.4-11.0 [facility] Comment on above: Performed By: #### L 100.0100, L300.8000, L501.9520, L505.5000, L500.2500 #### [facility] [address] [place], [address] CO2 (BldV) [Moles/Vol]Ordere d By: Keisha Handy on 01-26-2025 CO2 [Moles/Vol] 29 mmol/L 23-33 [facility] Carbon dioxide, total [Moles /volume] in Central venous bloodOrdered By: Beverly Ca on 01-26-2025 CO2 [Moles/Vol] 22.8 mmol/L 21.0-32.0 [facility] Chest PA and Lateralon 01-26 Chest PA and Lateral [facility] Imaging Services [address] [place] [address] Chest PA and Lateral MR#: [id number] Acct: [id number] Name: UNA COSBY Rep #: [id number] : 1995 M 29 From: David stearns MD PCP: Josep Hall,No Primary Status: REG ER Study: Chest PA and Lateral Date of Exam: 01/26/25 Exam# [id number] Ordering Dr: Beverly Ca PROCEDURE: CHEST PA AND LATERAL 01/26/2025 REASON FOR EXAM: CHEST PAIN TECHNIQUE: CHEST PA AND LATERAL COMPARISON: Prior study dated October 19, 2024. FINDINGS: Hardware: EKG electrodes. Heart: Unremarkable Mediastinum: The mediastinal contour is unremarkable. Lungs: The lungs are clear. Bones: The bones are unremarkable. RAD/Chest PA and Lateral IMPRESSION: NO ACUTE FINDINGS. Reading Location: [place] [address] CC: ZAIN Baker; No Primary Care Physician Manager Pharmaceutical: Signed Normal [facility] Chloride assayOrdered By: Katarina Ca on 01-26-2025 Chloride [Moles/Vol] 98 mmol/L 98-108 [facility] D-Dimer Quantitative (DVT/PE )on 01-26-2025 D-DIMER QUANT 0.27 FEU/ug/m Normal 0.27-0.49 [facility] Comment on above: Result Comment: NORM AL D-Dimer level (<0.50) indicates no DVT or PE. Performed By: #### L 100.0100, L300.8000, L501.9520, L505.5000, L500.2500 #### [facility] [address] [place], [address] Emergency Department Summary on 01-26-2025 Emergency Department Summary [facility] Medical Records Department [address] [place] [address] Emergency Department Summary 01/26/25 MR#: [id number] Acct: [id number] Name: UNA COSBY Rep #: [id number] : 1995 29 From: Beverly PITTMAN PCP: [...] use. Denies history of CAD or DVT/PE. PFSH PFS Medical History Learning difficulty due [...] 10/19/24 Unknown History mL 31 gauge x /16 (TRUEplus Insulin) ondansetron 8 mg disintegrating 8 [...] Respiratory Effo (more content not included)... Normal [facility] Eosinophil percentageOrdered By: Beverly Ca on 01-26-2025 Eosinophils/100 WBC (Bld) 5.1 % High 0-5 [facility] Erythrocyte distribution wid th ratioOrdered By: Beverly Ca on 01-26-2025 Erythrocyte distribution width (RBC) [Ratio] 15.8 % High 11.6-14.6 [facility] Erythrocyte distribution wid th standard deviationOrdered By: Beverly Ca on 01-26-2025 Erythrocyte distribution width (RBC) [Ratio] 42.6 fl 35.1-43.9 [facility] Glomerular filtration rate ( GFR) estimation/1.73 sq m using serum, plasma, or whole bOrdered By: Beverly Ca on 01-26-2025 GFR/1.73 sq M.predicted among non-blacks MDRD (S/P/Bld) [Vol rate/Area] 132 mL/min/{1.73_m2} >60 [facility] Comment on above: mL/min/1.73m2 CKD-EP I Creatinine Equation (2020) [facility] deOrdered By: Keisha Handy on 01-26-2025 Glucose [Mass/Vol] 189 mg/dL High 74-106 [facility] Comment on above: MANAGEMENT OF PATIEN T CARE PER NURSING PROTOCOL Hematocrit Auto (Bld) [Volum e fraction]Ordered By: Beverly Ca on 01-26-2025 Hematocrit (Bld) [Volume fraction] 38.7 % Low 40-54 [facility] Hemoglobin measurementOrdere d By: Beverly Ca on 01-26-2025 Hemoglobin (Bld) [Mass/Vol] 12.4 g/dL Low 13.0-16.5 [facility] Immature granulocytes/100 WB C Auto (Bld)Ordered By: Beverly Ca on 01-26-2025 Immature granulocytes/100 WBC (Bld) 0.300 % 0.0-0.9 [facility] Comment on above: IG% - Immature Granu locytes (promyelocytes, myelocytes and metamyelocytes) > 1% indicates that a LEFT SHIFT is Present. L501.4021on 01-26-2025 Trop T High Sen 15 ng/L Normal <=22 [facility] Comment on above: Performed By: #### L 100.0100, L300.8000, L501.9520, L505.5000, L500.2500 #### [facility] [address] [place], [address] MCV (mean corpuscular volume ) determinationOrdered By: Beverly Ca on 01-26-2025 MCV (RBC) [Entitic vol] 75.1 fL Low 80-94 [facility] Mean corpuscular hemoglobin (MCH) determinationOrdered By: Beverly Ca on 01-26-2025 MCH (RBC) [Entitic mass] 24.1 pg Low 27.0-32.0 [facility] Mean corpuscular hemoglobin concentration (MCHC) determinationOrdered By: Beverly Ca on 01-26-2025 MCHC (RBC) [Mass/Vol] 32.0 g/dL 32-36 [facility] Mean platelet volume determi nationOrdered By: Beverly Ca on 01-26-2025 Platelet mean volume (Bld) [Entitic vol] 10.8 fL 6.2-12.0 [facility] Monocyte percentageOrdered B y: Beverly Ca on 01-26-2025 Monocytes/100 WBC (Bld) 6.8 % 0-10 [facility] Neutrophil percentageOrdered By: Beverly Ca on 01-26-2025 Neutrophils/100 WBC (Bld) 58.3 % 47-70 [facility] No Panel InformationOrdered By: Beverly Ca on 01-26-2025 Urine Buprenorphine Qualitative Negative < 200 ng/mL [facility] Urine Oxycodone Screen Negative < 100 ng/mL [facility] No Panel InformationOrdered By: Keisha Handy on 01-26-2025 Blood Gas Sample Site Not entered [facility] Blood Gas Specimen Type JAIDEN [facility] Oxygen Delivery Device Not entered [facility] Nucleated red blood cell per centageOrdered By: Beverly Ca on 01-26-2025 Nucleated RBC/100 WBC (Bld) [Ratio] 0 % 0-5 [facility] Platelet countOrdered By: Katarina Ca on 01-26-2025 Platelets (Bld) [#/Vol] 328 10*3/uL 150-450 [facility] Potassium measurement (mass/ volume)Ordered By: Beverly Ca on 01-26-2025 Potassium (Unsp spec) [Mass/Vol] 4.3 mmol/L 3.3-5.1 [facility] Quantitative urine opiates m easurementOrdered By: Beverly Ca on 01-26-2025 Opiates Ql (U) Negative < 300 ng/mL [facility] RBC Auto (Bld) [#/Vol]Ordere d By: Beverly Ca on 01-26-2025 RBC (Bld) [#/Vol] 5.15 10*6/uL 4.6-6.2 [facility] Screening urine fentanyl yaya surementOrdered By: Beverly Ca on 01-26-2025 fentaNYL Screen Ql (U) Negative [facility] Serum creatinine measurement (mass/volume)Ordered By: Beverly Ca on 01-26-2025 Creatinine [Mass/Vol] 0.65 mg/dL Low 0.70-1.20 [facility] Serum glucose measurement (m ass/volume)Ordered By: Beverly Ca on 01-26-2025 Glucose [Mass/Vol] 484 mg/dL High 70-99 [facility] Comment on above: Critical Result(s) C alled at: 01/26/2025-12:56 by: Koko Oh to Ge Long. Results read back by same. Serum or plasma calcium koby urement (mass/volume)Ordered By: Beverly Ca on 01-26-2025 Calcium [Mass/Vol] 8.7 mg/dL 7.6-11.0 [facility] Serum or plasma urea nitroge n measurement (mass/volume)Ordered By: Beverly Ca on 01-26-2025 Urea nitrogen [Mass/Vol] 18 mg/dL 4-19 [facility] Sodium levelOrdered By: Beverly Ca on 06-20-2025 Sodium [Moles/Vol] 133 mmol/L 133-145 [facility] TSH DL <= 0.005 mIU/L QnOrde red By: Beverly Ca on 01-26-2025 TSH Qn 2.430 uIU/mL 0.300-4.20 0 [facility] Thyroid Stim Hormone (TSH)on 01-26-2025 TSH 2.430 uIU/mL Normal 0.300-4.20 0 [facility] Comment on above: Performed By: #### L 100.0100, L300.8000, L501.9520, L505.5000, L500.2500 #### [facility] [address] [place], [place], [phone] Troponin T.cardiac [Mass/vol ume] in Serum or Plasma by High sensitivity methodOrdered By: Beverly Ca on 01-26-2025 Troponin T.cardiac High sensitivity method [Mass/Vol] 15 ng/L <22 [facility] Comment on above: Delta: 8 on 10/19/24 -0024 Urine Drug Screen (VISTA)on 01-26-2025 AMPHETAMINES Negative Normal <1000 ng/mL [facility] Comment on above: Performed By: #### L 100.0100, L300.8000, L501.9520, L505.5000, L500.2500 #### [facility] [address] [place], [address] BARBITIURATES Negative Normal < 200 ng/mL [facility] Comment on above: Performed By: #### L 100.0100, L300.8000, L501.9520, L505.5000, L500.2500 #### [facility] [address] [place], [address] BENZODIAZIPINE Negative Normal < 200 ng/mL [facility] Comment on above: Performed By: #### L 100.0100, L300.8000, L501.9520, L505.5000, L500.2500 #### [facility] [address] [place], [address] BUP Ur Drug Scr Negative Normal < 200 ng/mL [facility] Comment on above: Performed By: #### L 100.0100, L300.8000, L501.9520, L505.5000, L500.2500 #### [facility] [address] [place], [address] COCAINE Negative Normal < 300 ng/mL [facility] Comment on above: Performed By: #### L 100.0100, L300.8000, L501.9520, L505.5000, L500.2500 #### [facility] [address] [place], [address] Fentanyl Negative Normal [facility] Comment on above: Performed By: #### L 100.0100, L300.8000, L501.9520, L505.5000, L500.2500 #### [facility] [address] [place], [address] METHADONE Negative Normal < 300 ng/mL [facility] Comment on above: Performed By: #### L 100.0100, L300.8000, L501.9520, L505.5000, L500.2500 #### [facility] [address] [place], [address] OPIATES Negative Normal < 300 ng/mL [facility] Comment on above: Performed By: #### L 100.0100, L300.8000, L501.9520, L505.5000, L500.2500 #### [facility] [address] [place], [address] OXYCODONE Negative Normal < 100 ng/mL [facility] Comment on above: Performed By: #### L 100.0100, L300.8000, L501.9520, L505.5000, L500.2500 #### [facility] [address] [place], [address] PCP Negative Normal < 25 ng/mL [facility] Comment on above: Performed By: #### L 100.0100, L300.8000, L501.9520, L505.5000, L500.2500 #### [facility] [address] [place], [address] THC Negative Normal < 50 ng/mL [facility] Comment on above: Performed By: #### L 100.0100, L300.8000, L501.9520, L505.5000, L500.2500 #### [facility] [address] [place], [address] Urine benzodiazepine levelOr dered By: Beverly Ca on 01-26-2025 Benzodiazepines Ql (U) Negative < 200 ng/mL [facility] Urine cocaine levelOrdered B y: Beverly Ca on 01-26-2025 Cocaine Ql (U) Negative < 300 ng/mL [facility] Urine grngl-6-qqfghprnndvlzm abinol (THC) measurementOrdered By: Beverly Ca on 01-26-2025 Cannabinoids Screen Ql (U) Negative < 50 ng/mL [facility] Urine phencyclidine (PCP) de tectionOrdered By: Beverly Ca on 01-26-2025 Phencyclidine Ql (U) Negative < 25 ng/mL [facility] Venous Blood Gason Blood Gas Type JAIDEN Normal [facility] Comment on above: Performed By: #### L 100.0100, L300.8000, L501.9520, L505.5000, L500.2500 #### [facility] [address] [place], [address] CO2 [Moles/Vol] 29 mmol/L Normal 23-33 [facility] Comment on above: Performed By: #### L 100.0100, L300.8000, L501.9520, L505.5000, L500.2500 #### [facility] [address] [place], [address] HCO3 (Bld) [Moles/Vol] 27 mmol/L High 22-26 [facility] Comment on above: Performed By: #### L 100.0100, L300.8000, L501.9520, L505.5000, L500.2500 #### [facility] [address] [place], [address] O2 Delivery Dev Not entered Normal [facility] Comment on above: Performed By: #### L 100.0100, L300.8000, L501.9520, L505.5000, L500.2500 #### [facility] [address] [place], [address] SITE Not entered Normal [facility] Comment on above: Performed By: #### L 100.0100, L300.8000, L501.9520, L505.5000, L500.2500 #### [facility] [address] [place], [address] VBG BE 2 mmol/L Normal -1.0-3.5 [facility] Comment on above: Performed By: #### L 100.0100, L300.8000, L501.9520, L505.5000, L500.2500 #### [facility] [address] [place], [address] VBG pCO2 45.0 mmHg Normal 41-51 [facility] Comment on above: Performed By: #### L 100.0100, L300.8000, L501.9520, L505.5000, L500.2500 #### [facility] [address] [place], [address] VBG pH 7.39 Normal 7.32-7.42 [facility] Comment on above: Performed By: #### L 100.0100, L300.8000, L501.9520, L505.5000, L500.2500 #### [facility] [address] [place], [address] VBG PO2 51 mmHg High 25-40 [facility] Comment on above: Performed By: #### L 100.0100, L300.8000, L501.9520, L505.5000, L500.2500 #### [facility] [address] [place], [address] VBG SO2 85 High 50-70 [facility] Comment on above: Performed By: #### L 100.0100, L300.8000, L501.9520, L505.5000, L500.2500 #### [facility] [address] [place], [address] Venous blood base excess yaya surementOrdered By: Keisha Handy on 01-26-2025 Base excess Calc (BldV) [Moles/Vol] 2 mmol/L -1.0-3.5 [facility] Venous blood bicarbonate yaya surementOrdered By: Keisha Handy on 01-26-2025 HCO3 (Bld) [Moles/Vol] 27 mmol/L High 22-26 [facility] Venous blood oxygen saturati on measurementOrdered By: Keisha Handy on 01-26-2025 Oxygen saturation in Blood 85 % High 50-70 [facility] Venous blood pH measurementO rdered By: Keisha Handy on 01-26-2025 pH (BldV) 7.39 [pH] 7.32-7.42 [facility] Venous blood partial pressur e of carbon dioxide measurementOrdered By: Keisha Handy on 01-26-2025 CO2 (BldV) [Partial pressure] 45.0 mm[Hg] 41-51 [facility] Venous blood partial pressur e of oxygen measurementOrdered By: Keisha Handy on 01-26-2025 Oxygen (BldV) [Partial pressure] 51 mm[Hg] High 25-40 [facility] White blood cell (WBC) count Ordered By: Beverly Ca on 01-26-2025 WBC (Bld) [#/Vol] 10.4 10*3/uL 4.4-11.0 [facility] Anion gap in Serum or Plasma Ordered By: Juan Rivas on 12-14-2024 Anion gap [Moles/Vol] 9 mmol/L 5-15 [facility] BUN/creatinine ratioOrdered By: Juan Rivas on 12-14-2024 Urea nitrogen/Creatinine [Mass ratio] 16.2 mg/mg - [facility] Basic Metabolic Profile (BMP )on 12-14-2024 BUN/CRE 16.2 RATIO Normal - [facility] Comment on above: Performed By: #### L 100.0100, L300.8000, L501.9520, L505.5000, L500.2500 #### [facility] [address] [place], [address] Calcium [Mass/Vol] 7.8 mg/dL Normal 7.6-11.0 [facility] Comment on above: Performed By: #### L 100.0100, L300.8000, L501.9520, L505.5000, L500.2500 #### [facility] [address] [place], [address] Chloride [Moles/Vol] 103 mmol/L Normal 98-108 [facility] Comment on above: Performed By: #### L 100.0100, L300.8000, L501.9520, L505.5000, L500.2500 #### [facility] [address] [place], [address] CO2 [Moles/Vol] 24.0 mmol/L Normal 21.0-32.0 [facility] Comment on above: Performed By: #### L 100.0100, L300.8000, L501.9520, L505.5000, L500.2500 #### [facility] [address] [place], [address] Creatinine [Mass/Vol] 0.64 mg/dL Low 0.70-1.20 [facility] Comment on above: Performed By: #### L 100.0100, L300.8000, L501.9520, L505.5000, L500.2500 #### [facility] [address] [place], [address] ECRCL 126.32 ml/min Normal 50-250 [facility] Comment on above: Performed By: #### L 100.0100, L300.8000, L501.9520, L505.5000, L500.2500 #### [facility] [address] [place], [address] GAP 9 Normal 5-15 [facility] Comment on above: Performed By: #### L 100.0100, L300.8000, L501.9520, L505.5000, L500.2500 #### [facility] [address] [place], [address] GFR/1.73 sq M.predicted among non-blacks MDRD (S/P/Bld) [Vol rate/Area] 133 mL/min/{1.73_m2} Normal >60 [facility] Comment on above: Result Comment: mL/m in/1.73m2 CKD-EPI Creatinine Equation (2020) Performed By: #### L 100.0100, L300.8000, L501.9520, L505.5000, L500.2500 #### [facility] [address] [place], [address] Glucose [Mass/Vol] 275 mg/dL High 70-99 [facility] Comment on above: Performed By: #### L 100.0100, L300.8000, L501.9520, L505.5000, L500.2500 #### [facility] [address] [place], [address] Potassium [Moles/Vol] 3.6 mmol/L Normal 3.3-5.1 [facility] Comment on above: Performed By: #### L 100.0100, L300.8000, L501.9520, L505.5000, L500.2500 #### [facility] [address] [place], [address] Sodium [Moles/Vol] 136 mmol/L Normal 133-145 [facility] Comment on above: Performed By: #### L 100.0100, L300.8000, L501.9520, L505.5000, L500.2500 #### [facility] [address] [place], [address] Urea nitrogen [Mass/Vol] 10 mg/dL Normal 4-19 [facility] Comment on above: Performed By: #### L 100.0100, L300.8000, L501.9520, L505.5000, L500.2500 #### [facility] [address] [place], [address] Bedside Glucoseon 12-14-2024 FINGERSTICK GLU 286 mg/dL High 74-106 [facility] Comment on above: Result Comment: TEJAL GEMENT OF PATIENT CARE PER NURSING PROTOCOL Performed By: #### L 501.080 #### [facility] [address] [place], [address] FINGERSTICK GLU 433 mg/dL High 74-106 [facility] Comment on above: Result Comment: TEJAL GEMENT OF PATIENT CARE PER NURSING PROTOCOL Performed By: #### L 100.0100, L300.8000, L501.9520, L505.5000, L500.2500 #### [facility] [address] [place], [address] FINGERSTICK GLU 262 mg/dL High 74-106 [facility] Comment on above: Result Comment: TEJAL GEMENT OF PATIENT CARE PER NURSING PROTOCOL Performed By: #### L 100.0100, L300.8000, L501.9520, L505.5000, L500.2500 #### [facility] [address] [place], [address] FINGERSTICK GLU 337 mg/dL High 74-106 [facility] Comment on above: Result Comment: TEJAL GEMENT OF PATIENT CARE PER NURSING PROTOCOL Performed By: #### L 100.0100, L300.8000, L501.9520, L505.5000, L500.2500 #### [facility] [place], [address] Carbon dioxide, total [Moles /volume] in Central venous bloodOrdered By: Juan Rivas on 12-14-2024 CO2 [Moles/Vol] 24.0 mmol/L 21.0-32.0 [facility] Chloride assayOrdered By: Cesar Rivas on 12-14-2024 Chloride [Moles/Vol] 103 mmol/L 98-108 [facility] Glomerular filtration rate ( GFR) estimation/1.73 sq m using serum, plasma, or whole bOrdered By: Juan Rivas on 12-14-2024 GFR/1.73 sq M.predicted among non-blacks MDRD (S/P/Bld) [Vol rate/Area] 133 mL/min/{1.73_m2} >60 [facility] Comment on above: mL/min/1.73m2 CKD-EP I Creatinine Equation (2020) [facility] deOrdered By: Juan Rivas on 12-14-2024 Glucose [Mass/Vol] 286 mg/dL High 74-106 [facility] Comment on above: MANAGEMENT OF PATIEN T CARE PER NURSING PROTOCOL Potassium measurement (mass/ volume)Ordered By: Juan Rivas on 12-14-2024 Potassium (Unsp spec) [Mass/Vol] 3.6 mmol/L 3.3-5.1 [facility] Serum creatinine measurement (mass/volume)Ordered By: Juan Rivas on 12-14-2024 Creatinine [Mass/Vol] 0.64 mg/dL Low 0.70-1.20 [facility] Serum glucose measurement (m ass/volume)Ordered By: Juan Rivas on 12-14-2024 Glucose [Mass/Vol] 275 mg/dL High 70-99 [facility] Serum or plasma calcium koby urement (mass/volume)Ordered By: Juan Rivas on 12-14-2024 Calcium [Mass/Vol] 7.8 mg/dL 7.6-11.0 [facility] Serum or plasma urea nitroge n measurement (mass/volume)Ordered By: Juan Rivas on 12-14-2024 Urea nitrogen [Mass/Vol] 10 mg/dL 4-19 [facility] Sodium levelOrdered By: Sav Rivas on 12-14-2024 Sodium [Moles/Vol] 136 mmol/L 133-145 [facility] 12 Lead EKGon 12-13-2024 12 Lead EKG [facility] Cardiovascular Services [address] [place] [address] 12 Lead EKG 12/13/24 2230 MR#: [id number] Acct: [id number] Name: UNA COSBY Rep #: [id number] : 1995 From: Doyle Morales MD Attending Dr: Status: [...] normal ECG Confirmed by Doyle Morales ([id number]), editor in chief newspaper DOMINIC KEENE ([id number]) on 12/15/2024 12:14:41 PM Referred By: Confirmed By: Doyle Morales 12/15/24 1214 Date Doyle Morales MD CC: Dr. Juan Rivas MD; No Primary Care Physician Signed Normal [facility] Absolute lymphocyte countOrd ered By: Juan Rivas on 12-13-2024 Lymphocytes Auto (Unsp spec) [#/Vol] 3.83 10*3/uL 0.83-4.51 [facility] Absolute neutrophil countOrd ered By: Juan Rivas on 12-13-2024 Neutrophils (Bld) [#/Vol] 6.1 10*3/uL 2.0-7.7 [facility] Automated lymphocyte count a s percentage of total leukocytesOrdered By: Juan Rivas on 12-13-2024 Lymphocytes/100 WBC Auto (Unsp spec) 33.9 % 19-41 [facility] Basic Metabolic Profile (BMP )on 12-13-2024 BUN/CRE 16.3 RATIO Normal 10-20 [facility] Comment on above: Performed By: #### L 500.2500, L501.6901 ####[facility] [address] [place], [address] Calcium [Mass/Vol] 9.0 mg/dL Normal 7.6-11.0 [facility] Comment on above: Performed By: #### L 500.2500, L501.6901 ####[facility] [address] [place], [address] Chloride [Moles/Vol] 90 mmol/L Low 98-108 [facility] Comment on above: Performed By: #### L 500.2500, L501.6901 ####[facility] [address] [place], [address] CO2 [Moles/Vol] 27.2 mmol/L Normal 21.0-32.0 [facility] Comment on above: Performed By: #### L 500.2500, L501.6901 ####[facility] [address] [place], [address] Creatinine [Mass/Vol] 0.84 mg/dL Normal 0.70-1.20 [facility] Comment on above: Performed By: #### L 500.2500, L501.6901 ####[facility] [address] [place], [address] ECRCL 96.24 ml/min Normal 50-250 [facility] Comment on above: Performed By: #### L 500.2500, L501.6901 ####[facility] [address] [place], [address] GAP 12 Normal 5-15 [facility] Comment on above: Performed By: #### L 500.2500, L501.6901 ####[facility] [address] [place], [address] GFR/1.73 sq M.predicted among non-blacks MDRD (S/P/Bld) [Vol rate/Area] 123 mL/min/{1.73_m2} Normal >60 [facility] Comment on above: Result Comment: mL/m in/1.73m2 CKD-EPI Creatinine Equation (2020) Performed By: #### L 500.2500, L501.6901 ####[facility] [address] [place], [address] Glucose [Mass/Vol] 520 mg/dL Invalid Interpretation Code 70-99 [facility] Comment on above: Result Comment: Crit ical Result(s) Called at: 2248 by: WLILIAM HERRERA TO GE TENNENT??Results read back by same. Performed By: #### L 500.2500, L501.6901 ####[facility] [address] [place], [address] Potassium [Moles/Vol] 5.3 mmol/L High 3.3-5.1 [facility] Comment on above: Performed By: #### L 500.2500, L501.6901 ####[facility] [address] [place], [address] Sodium [Moles/Vol] 129 mmol/L Low 133-145 [facility] Comment on above: Performed By: #### L 500.2500, L501.6901 ####[facility] [address] [place], [address] Urea nitrogen [Mass/Vol] 14 mg/dL Normal 4-19 [facility] Comment on above: Performed By: #### L 500.2500, L501.6901 ####[facility] [address] [place], [address] Basophil percentageOrdered B y: Juan Rivas on 12-13-2024 Basophils/100 WBC (Bld) 0.6 % 0-1 [facility] Bedside Glucoseon 12-13-2024 FINGERSTICK GLU 490 mg/dL Invalid Interpretation Code 74-106 [facility] Comment on above: Result Comment: Dr Erica egan Followed MANAGEMENT OF PATIENT CARE PER NURSING PROTOCOL Performed By: #### L 100.0100, L300.8000, L501.9520, L505.5000, L500.2500 #### [facility] [address] [place], [address] Beta-Hydroxbytyrateon 2024 BETA-HYDROXYBUT 1.7 mmol/L Normal 0.0-0.3 [facility] Comment on above: Performed By: #### L 500.2500, L501.6901 ####[facility] [address] [place], [address] Beta-hydroxybutyrateOrdered By: Juan Rivas on 12-13-2024 Beta hydroxybutyrate [Mass/Vol] 1.7 mmol/L 0.0-0.3 [facility] Bilirubin Test strip Ql (U)O rdered By: Juan Rivas on 12-13-2024 Bilirubin Ql (U) Negative Negative [facility] CBC W/Diff, Automatedon Absolute Lymph 3.83 X10 3/uL Normal 0.83-4.51 [facility] Comment on above: Performed By: #### L 100.0100, L300.8000, L501.9520, L505.5000, L500.2500 #### [facility] [address] [place], [address] Absolute Neut 6.1 X10 3/uL Normal 2.0-7.7 [facility] Comment on above: Performed By: #### L 100.0100, L300.8000, L501.9520, L505.5000, L500.2500 #### [facility] [address] [place], [address] Basophils/100 WBC (Bld) 0.6 % Normal 0-1 [facility] Comment on above: Performed By: #### L 100.0100, L300.8000, L501.9520, L505.5000, L500.2500 #### [facility] [address] [place], [address] Eosinophils/100 WBC (Bld) 3.3 % Normal 0-5 [facility] Comment on above: Performed By: #### L 100.0100, L300.8000, L501.9520, L505.5000, L500.2500 #### [facility] [address] [place], [address] Erythrocyte distribution width (RBC) [Ratio] 15.2 % High 11.6-14.6 [facility] Comment on above: Performed By: #### L 100.0100, L300.8000, L501.9520, L505.5000, L500.2500 #### [facility] [address] [place], [address] Hematocrit (Bld) [Volume fraction] 43.1 % Normal 40-54 [facility] Comment on above: Performed By: #### L 100.0100, L300.8000, L501.9520, L505.5000, L500.2500 #### [facility] [address] [place], [address] Hemoglobin (Bld) [Mass/Vol] 13.9 g/dL Normal 13.0-16.5 [facility] Comment on above: Performed By: #### L 100.0100, L300.8000, L501.9520, L505.5000, L500.2500 #### [facility] [address] [place], [address] IG% 0.300 Normal 0.0-0.9 [facility] Comment on above: Result Comment: IG% - Immature Granulocytes (promyelocytes, myelocytes and metamyelocytes) > 1% indicates that a LEFT SHIFT is Present. Performed By: #### L 100.0100, L300.8000, L501.9520, L505.5000, L500.2500 #### [facility] [address] [place], [address] Lymphocytes/100 WBC (Bld) 33.9 % Normal 19-41 [facility] Comment on above: Performed By: #### L 100.0100, L300.8000, L501.9520, L505.5000, L500.2500 #### [facility] [address] [place], [address] MCH (RBC) [Entitic mass] 23.4 pg Low 27.0-32.0 [facility] Comment on above: Performed By: #### L 100.0100, L300.8000, L501.9520, L505.5000, L500.2500 #### [facility] [address] [place], [address] MCHC (RBC) [Mass/Vol] 32.3 g/dL Normal 32-36 [facility] Comment on above: Performed By: #### L 100.0100, L300.8000, L501.9520, L505.5000, L500.2500 #### [facility] [address] [place], [address] MCV (RBC) [Entitic vol] 72.7 fL Low 80-94 [facility] Comment on above: Performed By: #### L 100.0100, L300.8000, L501.9520, L505.5000, L500.2500 #### [facility] [address] [place], [address] Monocytes/100 WBC (Bld) 8.1 % Normal 0-10 [facility] Comment on above: Performed By: #### L 100.0100, L300.8000, L501.9520, L505.5000, L500.2500 #### [facility] [address] [place], [address] Neutrophils/100 WBC (Bld) 53.8 % Normal 47-70 [facility] Comment on above: Performed By: #### L 100.0100, L300.8000, L501.9520, L505.5000, L500.2500 #### [facility] [address] [place], [address] Nucleated RBC (Bld) [#/Vol] 0 10*3/uL Normal 0-5 [facility] Comment on above: Performed By: #### L 100.0100, L300.8000, L501.9520, L505.5000, L500.2500 #### [facility] [address] [place], [address] Platelet mean volume (Bld) [Entitic vol] 10.5 fL Normal 6.2-12.0 [facility] Comment on above: Performed By: #### L 100.0100, L300.8000, L501.9520, L505.5000, L500.2500 #### [facility] [address] [place], [address] Platelets (Bld) [#/Vol] 449 10*3/uL Normal 150-450 [facility] Comment on above: Performed By: #### L 100.0100, L300.8000, L501.9520, L505.5000, L500.2500 #### [facility] [address] [place], [address] RBC (Bld) [#/Vol] 5.93 10*6/uL Normal 4.6-6.2 [facility] Comment on above: Performed By: #### L 100.0100, L300.8000, L501.9520, L505.5000, L500.2500 #### [facility] [address] [place], [address] RDW SD 38.6 fl Normal 35.1-43.9 [facility] Comment on above: Performed By: #### L 100.0100, L300.8000, L501.9520, L505.5000, L500.2500 #### [facility] [address] [place], [address] WBC (Bld) [#/Vol] 11.3 10*3/uL High 4.4-11.0 [facility] Comment on above: Performed By: #### L 100.0100, L300.8000, L501.9520, L505.5000, L500.2500 #### [facility] [address] [place], [address] CO2 (BldV) [Moles/Vol]Ordere d By: Juan Rvias on 12-13-2024 CO2 [Moles/Vol] 28 mmol/L 23-33 [facility] Emergency Department Summary on 12-13-2024 Emergency Department Summary [facility] Medical Records Department [address] [facility] [place] [place] [address] Emergency Department Summary 12/13/24 MR#: [id number] Acct: [id number] Name: UNA COSBY Rep #: [id number] : 1995 29 From: Juan Rivas MD [...] he cannot keep anything down all day. [facility] Medical History Learning difficulty due to cognitive [...] 10/19/24 Unknown History mL 31 gauge x 5/16 (TRUEplus Insulin) ondansetron 8 mg disintegrating 8 [...] other Details: left shoulder pain x months, I just decided to get it checked out yesterday. ; Denies back pain or neck pain [...] edema o (more content not included)... Normal [facility] Eosinophil percentageOrdered By: Juan Rivas on 12-13-2024 Eosinophils/100 WBC (Bld) 3.3 % 0-5 [facility] Erythrocyte distribution wid th ratioOrdered By: Juan Rivas on 12-13-2024 Erythrocyte distribution width (RBC) [Ratio] 15.2 % High 11.6-14.6 [facility] Erythrocyte distribution wid th standard deviationOrdered By: Juan Rivas on 12-13-2024 Erythrocyte distribution width (RBC) [Ratio] 38.6 fl 35.1-43.9 [facility] Hematocrit Auto (Bld) [Volum e fraction]Ordered By: Juan Rivas on 12-13-2024 Hematocrit (Bld) [Volume fraction] 43.1 % 40-54 [facility] Hemoglobin measurementOrdere d By: Juan Rivas on 12-13-2024 Hemoglobin (Bld) [Mass/Vol] 13.9 g/dL 13.0-16.5 [facility] Immature granulocytes/100 WB C Auto (Bld)Ordered By: Juan Rivas on 12-13-2024 Immature granulocytes/100 WBC (Bld) 0.300 % 0.0-0.9 [facility] Comment on above: IG% - Immature Granu locytes (promyelocytes, myelocytes and metamyelocytes) > 1% indicates that a LEFT SHIFT is Present. Ketones Test strip Ql (U)Ord ered By: Juan Rivas on 12-13-2024 Ketones Ql (U) 5 mg/dl High Negative [facility] MCV (mean corpuscular volume ) determinationOrdered By: Juan Rivas on 12-13-2024 MCV (RBC) [Entitic vol] 72.7 fL Low 80-94 [facility] Mean corpuscular hemoglobin (MCH) determinationOrdered By: Juan Rivas on 12-13-2024 MCH (RBC) [Entitic mass] 23.4 pg Low 27.0-32.0 [facility] Mean corpuscular hemoglobin concentration (MCHC) determinationOrdered By: Juan Rivas on 12-13-2024 MCHC (RBC) [Mass/Vol] 32.3 g/dL 32-36 [facility] Mean platelet volume determi nationOrdered By: Juan Rivas on 12-13-2024 Platelet mean volume (Bld) [Entitic vol] 10.5 fL 6.2-12.0 [facility] Microscopic analysis of urin e for red blood cells (RBC)Ordered By: Juan Rivas on 12-13-2024 Microscopic analysis of urine for red blood cells (RBC) 0 SEEN /hpf 0-5 [facility] Monocyte percentageOrdered B y: Juan Rivas on 12-13-2024 Monocytes/100 WBC (Bld) 8.1 % 0-10 [facility] Mucus LM Ql (Urine sed)Order ed By: Juan Rivas on 12-13-2024 Mucus Ql (Urine sed) 0 SEEN /hpf [facility] Neutrophil percentageOrdered By: Juan Rivas on 12-13-2024 Neutrophils/100 WBC (Bld) 53.8 % 47-70 [facility] Nitrite Test strip Ql (U)Ord ered By: Juan Rivas on 12-13-2024 Nitrite Ql (U) Negative Negative [facility] No Panel InformationOrdered By: Juan Rivas on 12-13-2024 Blood Gas Sample Site Not entered [facility] Blood Gas Specimen Type JAIDEN [facility] Oxygen Delivery Device Not entered [facility] Nucleated red blood cell per centageOrdered By: Juan Rivas on 12-13-2024 Nucleated RBC/100 WBC (Bld) [Ratio] 0 % 0-5 [facility] Platelet countOrdered By: Cesar Rivas on 12-13-2024 Platelets (Bld) [#/Vol] 449 10*3/uL 150-450 [facility] Protein Test strip Ql (U)Ord ered By: Juan Rivas on 12-13-2024 Protein Ql (U) 30 mg/dl High Negative [facility] RBC Auto (Bld) [#/Vol]Ordere d By: Juan Rivas on 12-13-2024 RBC (Bld) [#/Vol] 5.93 10*6/uL 4.6-6.2 [facility] Squamous epithelial cells de tection in urine sediment by light microscopyOrdered By: Juan Rivas on 12-13-2024 Epithelial cells.squamous LM Ql (Urine sed) 0 SEEN /hpf 0-5 [facility] Urinalysis, Completeon 12-13 BILIRUBIN URINE Negative Normal Negative [facility] Comment on above: Order Comment: MANN CTOR TO SPECIFY Performed By: #### L 400.0001 #### [facility] [address] [place], [place], [id number] Clarity (U) Clear Normal Clear [facility] Comment on above: Order Comment: MANN CTOR TO SPECIFY Performed By: #### L 400.0001 #### [facility] [address] [place], [place], [address] Color (U) Straw Normal Yellow [facility] Comment on above: Order Comment: MANN CTOR TO SPECIFY Performed By: #### L 400.0001 #### [facility] [address] [place], [address] GLUCOSE, UR 1000 mg/dl Abnormal Normal [facility] Comment on above: Order Comment: MANN CTOR TO SPECIFY Performed By: #### L 400.0001 #### [facility] [address] [place], [address] KETONE UR 5 mg/dl Abnormal Negative [facility] Comment on above: Order Comment: COLLE CTOR TO SPECIFY Performed By: #### L 400.0001 #### [facility] [address] [place], [address] LEUK ESTERASE Negative Normal Negative [facility] Comment on above: Order Comment: MANN CTOR TO SPECIFY Performed By: #### L 400.0001 #### [facility] [address] [place], [address] Nitrite Ql (U) Negative Normal Negative [facility] Comment on above: Order Comment: MANN CTOR TO SPECIFY Performed By: #### L 400.0001 #### [facility] [address] [place], [address] OCCULT BLOOD-UR 25 /ul Abnormal Negative [facility] Comment on above: Order Comment: MANN CTOR TO SPECIFY Performed By: #### L 400.0001 #### [facility] [address] [place], [address] pH UR 7.0 Normal 5.0 - 8.0 [facility] Comment on above: Order Comment: MANN CTOR TO SPECIFY Performed By: #### L 400.0001 #### [facility] [address] [place], [address] PROT DIPSTX 30 mg/dl Abnormal Negative [facility] Comment on above: Order Comment: MANN CTOR TO SPECIFY Performed By: #### L 400.0001 #### [facility] [address] [place], [address] SP.GR. DIPSTX 1.005 Normal 1.002-1.03 0 [facility] Comment on above: Order Comment: MANN CTOR TO SPECIFY Performed By: #### L 400.0001 #### [facility] [address] [place], [address] UROBILI Normal Normal Normal [facility] Comment on above: Order Comment: MANN CTOR TO SPECIFY Performed By: #### L 400.0001 #### [facility] [address] [place], [address] BACTERIA 0 SEEN Normal None Seen [facility] Comment on above: Order Comment: MANN CTOR TO SPECIFY Performed By: #### L 400.0001 #### [facility] [address] [place], [address] EPI,SQUAMOUS 0 SEEN Normal 0-5 [facility] Comment on above: Order Comment: MANN CTOR TO SPECIFY Performed By: #### L 400.0001 #### [facility] [address] [place], [address] Mucus Ql (Urine sed) 0 SEEN Normal [facility] Comment on above: Order Comment: MANN CTOR TO SPECIFY Performed By: #### L 400.0001 #### [facility] [address] [place], [address] RBC 0 SEEN Normal 0-5 [facility] Comment on above: Order Comment: MANN CTOR TO SPECIFY Performed By: #### L 400.0001 #### [facility] [address] [place], [address] WBC 0 SEEN Normal 0-5 [facility] Comment on above: Order Comment: MANN CTOR TO SPECIFY Performed By: #### L 400.0001 #### [facility] [address] [place], [address] Urine clarityOrdered By: Cherie Rivas on 12-13-2024 Clarity (U) Clear Clear [facility] Urine color determinationOrd ered By: Juan Rivas on 12-13-2024 Color (U) Straw Yellow [facility] Urine glucose detectionOrder ed By: Juan Rivas on 12-13-2024 Glucose Ql (U) 1000 mg/dl High Normal [facility] Urine leukocyte esterase det ection by dipstickOrdered By: Juan Rivas on 12-13-2024 Leukocyte esterase Test strip Ql (U) Negative Negative [facility] Urine pHOrdered By: Juan Rivas on 12-13-2024 pH (U) 7.0 [pH] 5.0 - 8.0 [facility] Urine sediment bacteria coun t by microscopy (number/high power field)Ordered By: Juan Rivas on 12-13-2024 Bacteria LM.HPF (Urine sed) [#/Area] 0 /[HPF] None Seen [facility] Urine specific gravity measu rementOrdered By: Juan Rivas on 12-13-2024 Specific gravity (U) [Rel density] 1.005 1.002-1.03 0 [facility] Urine urobilinogen measureme ntOrdered By: Juan Rivas on 12-13-2024 Urobilinogen Ql (U) Normal mg/dl Normal [facility] Venous Blood Gason Blood Gas Type JAIDEN Normal [facility] Comment on above: Performed By: #### L 100.0100, L300.8000, L501.9520, L505.5000, L500.2500 #### [facility] [address] [place], [place], [id number] CO2 [Moles/Vol] 28 mmol/L Normal 23-33 [facility] Comment on above: Performed By: #### L 100.0100, L300.8000, L501.9520, L505.5000, L500.2500 #### [facility] [address] [place], [place], [id number] FI02 21.0 Normal [facility] Comment on above: Performed By: #### L 100.0100, L300.8000, L501.9520, L505.5000, L500.2500 #### [facility] [address] [place], [address] HCO3 (Bld) [Moles/Vol] 27 mmol/L High 22-26 [facility] Comment on above: Performed By: #### L 100.0100, L300.8000, L501.9520, L505.5000, L500.2500 #### [facility] [address] [place], [address] O2 Delivery Dev Not entered Normal [facility] Comment on above: Performed By: #### L 100.0100, L300.8000, L501.9520, L505.5000, L500.2500 #### [facility] [address] [place], [address] SITE Not entered Normal [facility] Comment on above: Performed By: #### L 100.0100, L300.8000, L501.9520, L505.5000, L500.2500 #### [facility] [address] [place], [address] VBG BE 4 mmol/L High -1.0-3.5 [facility] Comment on above: Performed By: #### L 100.0100, L300.8000, L501.9520, L505.5000, L500.2500 #### [facility] [address] [place], [address] VBG pCO2 34.4 mmHg Low 41-51 [facility] Comment on above: Performed By: #### L 100.0100, L300.8000, L501.9520, L505.5000, L500.2500 #### [facility] [address] [place], [address] VBG pH 7.50 High 7.32-7.42 [facility] Comment on above: Performed By: #### L 100.0100, L300.8000, L501.9520, L505.5000, L500.2500 #### [facility] [address] [place], [address] VBG PO2 76 mmHg High 25-40 [facility] Comment on above: Performed By: #### L 100.0100, L300.8000, L501.9520, L505.5000, L500.2500 #### [facility] [address] [place], [address] VBG SO2 96 High 50-70 [facility] Comment on above: Performed By: #### L 100.0100, L300.8000, L501.9520, L505.5000, L500.2500 #### [facility] [address] [place], [address] Venous blood base excess yaya surementOrdered By: Juan Rivas on 12-13-2024 Base excess Calc (BldV) [Moles/Vol] 4 mmol/L High -1.0-3.5 [facility] Venous blood bicarbonate yaya surementOrdered By: Juan Rivas on 12-13-2024 HCO3 (Bld) [Moles/Vol] 27 mmol/L High 22-26 [facility] Venous blood oxygen saturati on measurementOrdered By: Juan Rivas on 12-13-2024 Oxygen saturation in Blood 96 % High 50-70 [facility] Venous blood pH measurementO rdered By: Juan Rivas on 12-13-2024 pH (BldV) 7.50 [pH] High 7.32-7.42 [facility] Venous blood partial pressur e of carbon dioxide measurementOrdered By: Juan Rivas on 12-13-2024 CO2 (BldV) [Partial pressure] 34.4 mm[Hg] Low 41-51 [facility] Venous blood partial pressur e of oxygen measurementOrdered By: Juan Rivas on 12-13-2024 Oxygen (BldV) [Partial pressure] 76 mm[Hg] High 25-40 [facility] White blood cell (WBC) count Ordered By: Juan Rivas on 12-13-2024 WBC (Bld) [#/Vol] 11.3 10*3/uL High 4.4-11.0 [facility] White blood cell countOrdere d By: Juan Rivas on 12-13-2024 White blood cell count 0 SEEN /hpf 0-5 [facility] Emergency Department Summary on 12-12-2024 Emergency Department Summary [facility] Medical Records Department [address] [place] [address] Emergency Department Summary 12/12/24 MR#: [id number] Acct: [id number] Name: UNA COSBY Rep #: [id number] : 1995 29 From: Arik Boswell MD [...] Funtion Narrative Narrative: Patient is a 29-year-old nzrxd-azhn-yhnnjsau male who presents with atraumatic left shoulder [...] 10/19/24 Unknown History mL 31 gauge x /16 (TRUEplus Insulin) ondansetron 4 mg disintegrating 4 [...] function intact (more content not included)... Normal [facility] Shoulder min 2 Viewson 12-12 Shoulder min 2 Views [facility] Imaging Services [address] [place] [address] Shoulder min 2 Views MR#: [id number] Acct: [id number] Name: UNA COSBY Rep #: [id number] : 1995 M 29 From: Deangelo Peña MD PCP: Care Physician,No Primary Status: REG ER Study: Shoulder min 2 Views Date of Exam: 12/12/24 Exam# [id number] Ordering Dr: Arik Boswell MD PROCEDURE: SHOULDER MIN 2 VIEWS, 12/12/2024 REASON FOR EXAM: INJURY/PAIN TECHNIQUE: AP, Grashey, scapular Y, and axillary views of the LEFT shoulder were obtained. COMPARISON: None FINDINGS: Fracture/dislocation: None visible. Joint space(s): Preserved. Soft tissues: Unremarkable. Foreign bodies: None visible. Bone mineralization: Unremarkable. Other: None. RAD/Shoulder min 2 Views IMPRESSION: No visible acute abnormality. Reading Location: [id number] CC: Dr. Arik Boswell MD; No Primary Care Physician Manager Pharm[employer]: Signed Normal [facility] CBC W/Diff, Automatedon 11-07 PATH REV Reviewed Normal [facility] Comment on above: Result Comment: SEE REPORT IN PATIENT'S EMR AMENDED REPORT 11/23/24 1409 PATH REV previously reported as: December Performed By: #### L 100.0100, L300.8000, L501.8920, L505.5000, L500.2500 #### [facility] [address] [place], [place], [id number] Absolute lymphocyte countOrd ered By: Lourdes Metz on 11-11-2024 Lymphocytes Auto (Unsp spec) [#/Vol] 2.97 10*3/uL 0.83-4.51 [facility] Absolute neutrophil countOrd ered By: Lourdes Metz on 11-11-2024 Neutrophils (Bld) [#/Vol] 11.8 10*3/uL High 2.0-7.7 [facility] Anion gap in Serum or Plasma Ordered By: Lourdes Metz on 11-11-2024 Anion gap [Moles/Vol] 11 mmol/L 5-15 [facility] Automated lymphocyte count a s percentage of total leukocytesOrdered By: Lourdes Metz on 11-11-2024 Lymphocytes/100 WBC Auto (Unsp spec) 17.9 % Low 19-41 [facility] BUN/creatinine ratioOrdered By: Lourdes Metz on 11-11-2024 Urea nitrogen/Creatinine [Mass ratio] 16.4 mg/mg 10-20 [facility] Base excess Calc (BldV) [Mol es/Vol]Ordered By: Steven Donaldson on 11-11-2024 Venous Blood Base Excess 2 mmol/L -1.0-3.5 [facility] Basophil percentageOrdered B y: Lourdes Metz on 11-11-2024 Basophils/100 WBC (Bld) 0.2 % 0-1 [facility] Beta hydroxybutyrate [Mass/V ol]Ordered By: Lourdes Metz on 11-11-2024 Beta-Hydroxybutyric Acid mmol/L 0.6 mmol/L 0.0-0.3 [facility] Beta-Hydroxbytyrateon 2024 BETA-HYDROXYBUT 0.6 mmol/L Normal 0.0-0.3 [facility] Comment on above: Performed By: #### L 100.0100, L300.8000, L501.9520, L505.5000, L500.2500 #### [facility] [address] [place], [place], [id number] Beta-hydroxybutyrateOrdered By: Lourdes Metz on 11-11-2024 Beta hydroxybutyrate [Mass/Vol] 0.6 mmol/L 0.0-0.3 [facility] Bilirubin, totalOrdered By: Lourdes Metz on 11-11-2024 Bilirubin [Mass/Vol] mg/dL 0.00-1.30 [facility] Blood manual differential co mment interpretation (narrative result)Ordered By: Lourdes Metz on 11-11-2024 Manual differential comment Gigi (Bld) [Interp] SCANNED [facility] CO2 (BldV) [Moles/Vol]Ordere d By: Steven Donaldson on 11-11-2024 CO2 [Moles/Vol] 28 mmol/L 23-33 [facility] CO2 (BldV) [Partial pressure ]Ordered By: Steven Donaldson on 11-11-2024 Bed Mix Venous Bld PCO2 at Pat Temp 39.6 mmHg Low 41-51 [facility] Carbon dioxide, total [Moles /volume] in Central venous bloodOrdered By: Lourdes Metz on 11-11-2024 CO2 [Moles/Vol] 24.8 mmol/L 21.0-32.0 [facility] Chloride assayOrdered By: Malena Metz on 11-11-2024 Chloride [Moles/Vol] 102 mmol/L 98-108 [facility] Comprehensive Metabolic Prof ilon 11-11-2024 Albumin [Mass/Vol] 3.6 g/dL Normal 3.5-5.0 [facility] Comment on above: Performed By: #### L 100.0100, L300.8000, L501.9520, L505.5000, L500.2500 #### [facility] [address] [place], [address] Albumin/Globulin [Mass ratio] 1.4 {ratio} Normal 0.9-2.4 [facility] Comment on above: Performed By: #### L 100.0100, L300.8000, L501.9520, L505.5000, L500.2500 #### [facility] [address], [address] ALK PHOS 123 U/L Normal 40-129 [facility] Comment on above: Performed By: #### L 100.0100, L300.8000, L501.9520, L505.5000, L500.2500 #### [facility] [address] [place], [address] ALT [Catalytic activity/Vol] 20 U/L Normal <=46 [facility] Comment on above: Performed By: #### L 100.0100, L300.8000, L501.9520, L505.5000, L500.2500 #### [facility] [address] [place], [address] AST [Catalytic activity/Vol] 18 U/L Normal <=37 [facility] Comment on above: Performed By: #### L 100.0100, L300.8000, L501.9520, L505.5000, L500.2500 #### [facility] [address] [place], [address] BUN/CRE 16.4 RATIO Normal 10-20 [facility] Comment on above: Performed By: #### L 100.0100, L300.8000, L501.9520, L505.5000, L500.2500 #### [facility] [address] [place], [address] Calcium [Mass/Vol] 8.3 mg/dL Normal 7.6-11.0 [facility] Comment on above: Performed By: #### L 100.0100, L300.8000, L501.9520, L505.5000, L500.2500 #### [facility] [address] [place], [address] Chloride [Moles/Vol] 102 mmol/L Normal 98-108 [facility] Comment on above: Performed By: #### L 100.0100, L300.8000, L501.9520, L505.5000, L500.2500 #### [facility] [address] [place], [address] CO2 [Moles/Vol] 24.8 mmol/L Normal 21.0-32.0 [facility] Comment on above: Performed By: #### L 100.0100, L300.8000, L501.9520, L505.5000, L500.2500 #### [facility] [address] [place], [address] Creatinine [Mass/Vol] 0.85 mg/dL Normal 0.70-1.20 [facility] Comment on above: Performed By: #### L 100.0100, L300.8000, L501.9520, L505.5000, L500.2500 #### [facility] [address] [place], [address] ECRCL 115.58 ml/min Normal 50-250 [facility] Comment on above: Performed By: #### L 100.0100, L300.8000, L501.9520, L505.5000, L500.2500 #### [facility] [address] [place], [address] GAP 11 Normal 5-15 [facility] Comment on above: Performed By: #### L 100.0100, L300.8000, L501.9520, L505.5000, L500.2500 #### [facility] [address] [place], [address] GFR/1.73 sq M.predicted among non-blacks MDRD (S/P/Bld) [Vol rate/Area] 122 mL/min/{1.73_m2} Normal >60 [facility] Comment on above: Result Comment: mL/m in/1.73m2 CKD-EPI Creatinine Equation (2020) Performed By: #### L 100.0100, L300.8000, L501.9520, L505.5000, L500.2500 #### [facility] [address] [place], [address] Globulin (S) [Mass/Vol] 2.6 g/dL Normal 2.2-4.2 [facility] Comment on above: Performed By: #### L 100.0100, L300.8000, L501.9520, L505.5000, L500.2500 #### [facility] [address] [place], [address] Glucose [Mass/Vol] 113 mg/dL High 70-99 [facility] Comment on above: Performed By: #### L 100.0100, L300.8000, L501.9520, L505.5000, L500.2500 #### [facility] [address] [place], [address] Potassium [Moles/Vol] 3.2 mmol/L Low 3.3-5.1 [facility] Comment on above: Performed By: #### L 100.0100, L300.8000, L501.9520, L505.5000, L500.2500 #### [facility] [address] [place], [address] Sodium [Moles/Vol] 138 mmol/L Normal 133-145 [facility] Comment on above: Performed By: #### L 100.0100, L300.8000, L501.9520, L505.5000, L500.2500 #### [facility] [address] [place], [address] T BILI < 0.15 Normal 0.00-1.30 [facility] Comment on above: Performed By: #### L 100.0100, L300.8000, L501.9520, L505.5000, L500.2500 #### [facility] [address] [place], [address] T PROT 6.1 g/dL Normal 5.9-8.4 [facility] Comment on above: Performed By: #### L 100.0100, L300.8000, L501.9520, L505.5000, L500.2500 #### [facility] [address] [place], [address] Urea nitrogen [Mass/Vol] 14 mg/dL Normal 4-19 [facility] Comment on above: Performed By: #### L 100.0100, L300.8000, L501.9520, L505.5000, L500.2500 #### [facility] [address] [place], [address] Emergency Department Summary on 11-11-2024 Emergency Department Summary [facility] Medical Records Department [address] [place] [address] Emergency Department Summary 11/11/24 MR#: [id number] Acct: [id number] Name: UNA COSBY Rep #: [id number] : 1995 29 From: Lourdes PITTMAN PCP: [...] fevers, chills, hematemesis, diarrhea, and urinary symptoms. 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 Normal [facility] Eosinophil percentageOrdered By: Lourdes Metz on 11-11-2024 Eosinophils/100 WBC (Bld) 0.8 % 0-5 [facility] Erythrocyte distribution wid th (RBC) [Ratio]Ordered By: Lourdes Metz on 11-11-2024 Erythrocyte distribution width (RBC) [Entitic vol] 42.0 fL 35.1-43.9 [facility] Erythrocyte distribution wid th ratioOrdered By: Lourdes Metz on 11-11-2024 Erythrocyte distribution width (RBC) [Ratio] 15.8 % High 11.6-14.6 [facility] Erythrocyte distribution wid th standard deviationOrdered By: Lourdes Metz on 11-11-2024 Erythrocyte distribution width (RBC) [Ratio] 42.0 fl 35.1-43.9 [facility] Erythrocyte morphology asses smentOrdered By: Lourdes Metz on 11-11-2024 RBC morphology finding Nom (Bld) NORM C+C NORMAL NORM C&C [facility] Estimation of creatinine riley aranceOrdered By: Lourdes Metz on 11-11-2024 Estimated Creatinine Clearance Calc 115.58 ml/min 50-250 [facility] GFR/1.73 sq M.predicted baldev g non-blacks MDRD (S/P/Bld) [Vol rate/Area]Ordered By: Lourdes Metz on 11-11-2024 Estimated GFR (MDRD) Non-Af Amer 122 >60 [facility] Comment on above: mL/min/1.73m2 CKD-EP I Creatinine Equation (2020) Glomerular filtration rate ( GFR) estimation/1.73 sq m using serum, plasma, or whole bOrdered By: Lourdes Metz on 11-11-2024 GFR/1.73 sq M.predicted among non-blacks MDRD (S/P/Bld) [Vol rate/Area] 122 mL/min/{1.73_m2} >60 [facility] Comment on above: mL/min/1.73m2 CKD-EP I Creatinine Equation (2020) Hematocrit Auto (Bld) [Volum e fraction]Ordered By: Lourdes Metz on 11-11-2024 Hematocrit (Bld) [Volume fraction] 39.7 % Low 40-54 [facility] Hemoglobin measurementOrdere d By: Lourdes Metz on 11-11-2024 Hemoglobin (Bld) [Mass/Vol] 12.5 g/dL Low 13.0-16.5 [facility] Immature granulocytes/100 WB C Auto (Bld)Ordered By: Lourdes Metz on 11-11-2024 Immature granulocytes/100 WBC (Bld) 0.400 % 0.0-0.9 [facility] Comment on above: IG% - Immature Granu locytes (promyelocytes, myelocytes and metamyelocytes) > 1% indicates that a LEFT SHIFT is Present. Laboratory - Chemistry and C hemistry - challengeOrdered By: Lourdes Metz on 11-11-2024 AST [Catalytic activity/Vol] 18 U/L <38 [facility] Lipaseon 11-11-2024 Lipase [Catalytic activity/Vol] 17 U/L Normal 13-75 [facility] Comment on above: Result Comment: Stella caro note: LIPASE revised reference range effective 22. New Lipase methodology. Expected to produce lower values than the previous assay method. NEW Reference Range: 13 - 75 U/L Performed By: #### L 100.0100, L300.8000, L501.9520, L505.5000, L500.2500 #### [facility] [address] [place], [address] Lipase measurementOrdered By : Lourdes Metz on 11-11-2024 Lipase [Catalytic activity/Vol] 17 U/L 13-75 [facility] Comment on above: Please note:LIPASE r evised reference range effective 22. New Lipase methodology. Expected to produce lower values than the previous assay method. NEW Reference Range: 13 - 75 U/L Lymphocytes Auto (Unsp spec) [#/Vol]Ordered By: Lourdes Metz on 11-11-2024 Lymphocytes (Bld) [#/Vol] 2.97 10*3/uL 0.83-4.51 [facility] Lymphocytes/100 WBC Auto (Un sp spec)Ordered By: Lourdes Metz on 11-11-2024 Lymphocytes/100 WBC (Bld) 17.9 % Low 19-41 [facility] MCV (mean corpuscular volume ) determinationOrdered By: Lourdes Metz on 11-11-2024 MCV (RBC) [Entitic vol] 75.0 fL Low 80-94 [facility] Manual differential comment Gigi (Bld) [Interp]Ordered By: Lourdes Metz on 11-11-2024 Differential Comment SCANNED [facility] Mean corpuscular hemoglobin (MCH) determinationOrdered By: Lourdes Metz on 11-11-2024 MCH (RBC) [Entitic mass] 23.6 pg Low 27.0-32.0 [facility] Mean corpuscular hemoglobin concentration (MCHC) determinationOrdered By: Lourdes Metz on 11-11-2024 MCHC (RBC) [Mass/Vol] 31.5 g/dL Low 32-36 [facility] Mean platelet volume determi nationOrdered By: Lourdes Metz on 11-11-2024 Platelet mean volume (Bld) [Entitic vol] 10.6 fL 6.2-12.0 [facility] Monocyte percentageOrdered B y: Lourdes Metz on 11-11-2024 Monocytes/100 WBC (Bld) 9.5 % 0-10 [facility] Neutrophil percentageOrdered By: Lourdes Metz on 11-11-2024 Neutrophils/100 WBC (Bld) 71.2 % High 47-70 [facility] No Panel InformationOrdered By: Steven Donaldson on 11-11-2024 Blood Gas Sample Site Not entered [facility] Blood Gas Specimen Type JAIDEN [facility] Oxygen Delivery Device Room Air [facility] Nucleated red blood cell per centageOrdered By: Lourdes Metz on 11-11-2024 Nucleated RBC/100 WBC (Bld) [Ratio] 0 % 0-5 [facility] Oxygen (BldV) [Partial press ure]Ordered By: Steven Donaldson on 11-11-2024 Venous Blood Partial Pressure O2 40 mmHg 25-40 [facility] Pathologist review Gigi (Unsp spec) [Interp]Ordered By: Lourdes Metz on 11-11-2024 Differential Pathologist's Review [facility] Platelet countOrdered By: Malena Metz on 11-11-2024 Platelets (Bld) [#/Vol] 314 10*3/uL 150-450 [facility] Platelet estimateOrdered By: Lourdes Metz on 11-11-2024 Platelets LM Ql (Bld) ADEQUATE ADEQ [facility] Platelet morphologyOrdered B y: Lourdes Metz on 11-11-2024 Platelet morphology finding Nom (Bld) [facility] Platelet morphology finding Nom (Bld)Ordered By: Lourdes Metz on 11-11-2024 Platelet Morphology Comment LARGE [facility] Platelets LM Ql (Bld)Ordered By: Lourdes Metz on 11-11-2024 Platelet Estimate ADEQUATE BANNERQ [facility] Potassium (Unsp spec) [Mass/ Vol]Ordered By: Lourdes Metz on 11-11-2024 Potassium [Moles/Vol] 3.2 mmol/L Low 3.3-5.1 [facility] Potassium measurement (mass/ volume)Ordered By: Lourdes Metz on 11-11-2024 Potassium (Unsp spec) [Mass/Vol] 3.2 mmol/L Low 3.3-5.1 [facility] RBC Auto (Bld) [#/Vol]Ordere d By: Lourdes Metz on 11-11-2024 RBC (Bld) [#/Vol] 5.29 10*6/uL 4.6-6.2 [facility] RBC morphology finding Nom ( Bld)Ordered By: Lourdes Metz on 11-11-2024 Red Blood Cell Morphology NORM C+C NORMAL NORM C&C [facility] Review by pathologistOrdered By: Lourdes Metz on 11-11-2024 Pathologist review Gigi (Unsp spec) [Interp] Reviewed [facility] Comment on above: Previous reported re sult: Louisa wiseman Edited by: ANAYELI on 11/23/24:1409SEE REPORT IN PATIENT'S EMR AMENDED REPORT 11/23/24 1409 PATH REV previously reported as: Louisa wiseman Serum creatinine measurement (mass/volume)Ordered By: Lourdes Metz on 11-11-2024 Creatinine [Mass/Vol] 0.85 mg/dL 0.70-1.20 [facility] Serum globulin measurementOr dered By: Lourdes Metz on 11-11-2024 Globulin (S) [Mass/Vol] 2.6 g/dL 2.2-4.2 [facility] Serum glucose measurement (m ass/volume)Ordered By: Lourdes Metz on 11-11-2024 Glucose [Mass/Vol] 113 mg/dL High 70-99 [facility] Serum or plasma alanine oviedo otransferase (ALT) measurementOrdered By: Lourdes Metz on 11-11-2024 ALT [Catalytic activity/Vol] 20 U/L <47 [facility] Serum or plasma albumin koby urement (mass/volume)Ordered By: Lourdes Metz on 11-11-2024 Albumin [Mass/Vol] 3.6 g/dL 3.5-5.0 [facility] Serum or plasma albumin/glob ulin mass ratioOrdered By: Lourdes Metz on 11-11-2024 Albumin/Globulin [Mass ratio] 1.4 {ratio} 0.9-2.4 [facility] Serum or plasma alkaline lopez sphatase measurementOrdered By: Lourdes Metz on 11-11-2024 ALP [Catalytic activity/Vol] 123 U/L 40-129 [facility] Serum or plasma calcium koby urement (mass/volume)Ordered By: Lourdes Metz on 11-11-2024 Calcium [Mass/Vol] 8.3 mg/dL 7.6-11.0 [facility] Serum or plasma urea nitroge n measurement (mass/volume)Ordered By: Lourdes Metz on 11-11-2024 Urea nitrogen [Mass/Vol] 14 mg/dL 4-19 [facility] Sodium levelOrdered By: Wesly Metz on 11-11-2024 Sodium [Moles/Vol] 138 mmol/L 133-145 [facility] Total proteinOrdered By: Graham Metz on 11-11-2024 Protein [Mass/Vol] 6.1 g/dL 5.9-8.4 [facility] Venous Blood Gason Blood Gas Type JAIDEN Normal [facility] Comment on above: Performed By: #### L 100.0100, L300.8000, L501.9520, L505.5000, L500.2500 #### [facility] [address] [place], [address] CO2 [Moles/Vol] 28 mmol/L Normal 23-33 [facility] Comment on above: Performed By: #### L 100.0100, L300.8000, L501.9520, L505.5000, L500.2500 #### [facility] [address] [place], [address] HCO3 (Bld) [Moles/Vol] 27 mmol/L High 22-26 [facility] Comment on above: Performed By: #### L 100.0100, L300.8000, L501.9520, L505.5000, L500.2500 #### [facility] [address] [place], [address] O2 Delivery Dev Room Air Normal [facility] Comment on above: Performed By: #### L 100.0100, L300.8000, L501.9520, L505.5000, L500.2500 #### [facility] [address] [place], [address] SITE Not entered Normal [facility] Comment on above: Performed By: #### L 100.0100, L300.8000, L501.9520, L505.5000, L500.2500 #### [facility] [address] [place], [address] VBG BE 2 mmol/L Normal -1.0-3.5 [facility] Comment on above: Performed By: #### L 100.0100, L300.8000, L501.9520, L505.5000, L500.2500 #### [facility] [address] [place], [address] VBG pCO2 39.6 mmHg Low 41-51 [facility] Comment on above: Performed By: #### L 100.0100, L300.8000, L501.9520, L505.5000, L500.2500 #### [facility] [address] [place], [address] VBG pH 7.44 High 7.32-7.42 [facility] Comment on above: Performed By: #### L 100.0100, L300.8000, L501.9520, L505.5000, L500.2500 #### [facility] [address] [place], [address] VBG PO2 40 mmHg Normal 25-40 [facility] Comment on above: Performed By: #### L 100.0100, L300.8000, L501.9520, L505.5000, L500.2500 #### [facility] [address] [place], [address] VBG SO2 76 High 50-70 [facility] Comment on above: Performed By: #### L 100.0100, L300.8000, L501.9520, L505.5000, L500.2500 #### [facility] [address] [place], [address] Venous blood base excess yaya surementOrdered By: Steven Donaldson on 11-11-2024 Base excess Calc (BldV) [Moles/Vol] 2 mmol/L -1.0-3.5 [facility] Venous blood bicarbonate yaya surementOrdered By: Steven Donaldson on 11-11-2024 HCO3 (Bld) [Moles/Vol] 27 mmol/L High 22-26 [facility] Venous blood oxygen saturati on measurementOrdered By: Steven Donaldson on 11-11-2024 Oxygen saturation in Blood 76 % High 50-70 [facility] Venous blood pH measurementO rdered By: Steven Donaldson on 11-11-2024 pH (BldV) 7.44 [pH] High 7.32-7.42 [facility] Venous blood partial pressur e of carbon dioxide measurementOrdered By: Steven Donaldson on 11-11-2024 CO2 (BldV) [Partial pressure] 39.6 mm[Hg] Low 41-51 [facility] Venous blood partial pressur e of oxygen measurementOrdered By: Steven Lowery on 11-11-2024 Oxygen (BldV) [Partial pressure] 40 mm[Hg] 25-40 [facility] White blood cell (WBC) count Ordered By: Lourdes Metz on 11-11-2024 WBC (Bld) [#/Vol] 16.6 10*3/uL High 4.4-11.0 [facility] pH (BldV)Ordered By: Steven Rasmussen on 11-11-2024 Venous Blood pH 7.44 High 7.32-7.42 [facility] 12 Lead EKGon 10-19-2024 12 Lead EKG [facility] Cardiovascular Services [address] [place] [address] 12 Lead EKG 10/19/24 0029 MR#: [id number] Acct: [id number] Name: UNA COSBY Rep #: [id number] : 1995 29 From: Taylor Man MD [...] ECG Confirmed by MEGAN MIRELES, NIKKI ([id number]), editor in chief newspaper COREY MICHAEL ([id number]) on 10/23/2024 10:53:38 AM Referred By: Confirmed By: NIKKI MAN MD 10/23/24 1053 Date Taylor Man MD CC: Dr. Keisha Handy, ; No Primary Care Physician Signed Normal [facility] Absolute lymphocyte countOrd ered By: Keisha Handy on 10-19-2024 Lymphocytes Auto (Unsp spec) [#/Vol] 3.70 10*3/uL 0.83-4.51 [facility] Absolute neutrophil countOrd ered By: Keisha Handy on 10-19-2024 Neutrophils (Bld) [#/Vol] 8.5 10*3/uL High 2.0-7.7 [facility] Anion gap in Serum or Plasma Ordered By: Keisha Handy on 10-19-2024 Anion gap [Moles/Vol] 17 mmol/L High 5-15 [facility] Comment on above: Previous reported re sult: 14 Edited by: AUTOINSandra on 10/19/24:0209 AMENDED REPORT 10/19/24 0209 GAP previously reported as: 14 Automated lymphocyte count a s percentage of total leukocytesOrdered By: Keisha Handy on 10-19-2024 Lymphocytes/100 WBC Auto (Unsp spec) 27.7 % 19-41 [facility] BUN/creatinine ratioOrdered By: Keisha Handy on 10-19-2024 Urea nitrogen/Creatinine [Mass ratio] 26.8 mg/mg High 10-20 [facility] Comment on above: Previous reported re sult: 25.4 RATIOEdited by: LUCERO on 10/19/24:0209 AMENDED REPORT 10/19/24208 BUN/CRE previously reported as: 25.4 H RATIO Base excess Calc (BldV) [Mol es/Vol]Ordered By: Keisha Handy on 10-19-2024 Venous Blood Base Excess -2 mmol/L Low -1.0-3.5 [facility] Basic Metabolic Profile (BMP )on 10-19-2024 Calcium [Mass/Vol] 8.9 mg/dL Normal 7.6-11.0 [facility] Comment on above: Performed By: #### L 100.0100, L501.4021, L500.2500 ####[facility] [address] [place], [place], [address] GFR/1.73 sq M.predicted among non-blacks MDRD (S/P/Bld) [Vol rate/Area] 134 mL/min/{1.73_m2} Normal >60 [facility] Comment on above: Result Comment: mL/m in/1.73m2 CKD-EPI Creatinine Equation (2020) Performed By: #### L 100.0100, L501.4021, L500.2500 ####[facility] [address] [facility] [place], [place], [address] Basophil percentageOrdered B y: Keisha Handy on 10-19-2024 Basophils/100 WBC (Bld) 0.7 % 0-1 [facility] Bedside Glucoseon 10-19-2024 FINGERSTICK GLU 312 mg/dL High 74-106 [facility] Comment on above: Result Comment: TEJAL SIGRID OF PATIENT CARE PER NURSING PROTOCOL Performed By: #### L 100.0100, L300.8000, L501.9520, L505.5000, L500.2500 #### [facility] [address] [place], [address] Bilirubin Test strip Ql (U)O rdered By: Keisha Handy on 10-19-2024 Bilirubin Ql (U) Negative Negative [facility] CBC W/Diff, Automatedon 10-07 Absolute Lymph 3.70 X10 3/uL Normal 0.83-4.51 [facility] Comment on above: Performed By: #### L 100.0100, L501.4021, L500.2500 ####[facility] [address] [place], [address] Absolute Neut 8.5 X10 3/uL High 2.0-7.7 [facility] Comment on above: Performed By: #### L 100.0100, L501.4021, L500.2500 ####[facility] [address] [place], [address] Basophils/100 WBC (Bld) 0.7 % Normal 0-1 [facility] Comment on above: Performed By: #### L 100.0100, L501.4021, L500.2500 ####[facility] [address] [place], [address] Eosinophils/100 WBC (Bld) 1.5 % Normal 0-5 [facility] Comment on above: Performed By: #### L 100.0100, L501.4021, L500.2500 ####[facility] [address] [place], [address] Erythrocyte distribution width (RBC) [Ratio] 16.5 % High 11.6-14.6 [facility] Comment on above: Performed By: #### L 100.0100, L501.4021, L500.2500 ####[facility] [address] [place], [address] Hematocrit (Bld) [Volume fraction] 43.5 % Normal 40-54 [facility] Comment on above: Performed By: #### L 100.0100, L501.4021, L500.2500 ####[facility] [address] [place], [address] Hemoglobin (Bld) [Mass/Vol] 13.4 g/dL Normal 13.0-16.5 [facility] Comment on above: Performed By: #### L 100.0100, L501.4021, L500.2500 ####[facility] [address] [place], [address] IG% 0.400 Normal 0.0-0.9 [facility] Comment on above: Result Comment: IG% - Immature Granulocytes (promyelocytes, myelocytes and metamyelocytes) > 1% indicates that a LEFT SHIFT is Present. Performed By: #### L 100.0100, L501.4021, L500.2500 ####[facility] [address] [place], [address] Lymphocytes/100 WBC (Bld) 27.7 % Normal 19-41 [facility] Comment on above: Performed By: #### L 100.0100, L501.4021, L500.2500 ####[facility] [address] [place], [address] MCH (RBC) [Entitic mass] 23.2 pg Low 27.0-32.0 [facility] Comment on above: Performed By: #### L 100.0100, L501.4021, L500.2500 ####[facility] [address] [place], [address] MCHC (RBC) [Mass/Vol] 30.8 g/dL Low 32-36 [facility] Comment on above: Performed By: #### L 100.0100, L501.4021, L500.2500 ####[facility] [address] [place], [address] MCV (RBC) [Entitic vol] 75.3 fL Low 80-94 [facility] Comment on above: Performed By: #### L 100.0100, L501.4021, L500.2500 ####[facility] [address] [place], [address] Monocytes/100 WBC (Bld) 6.2 % Normal 0-10 [facility] Comment on above: Performed By: #### L 100.0100, L501.4021, L500.2500 ####[facility] [address] [place], [address] Neutrophils/100 WBC (Bld) 63.5 % Normal 47-70 [facility] Comment on above: Performed By: #### L 100.0100, L501.4021, L500.2500 ####[facility] [address] [place], [address] Nucleated RBC (Bld) [#/Vol] 0 10*3/uL Normal 0-5 [facility] Comment on above: Performed By: #### L 100.0100, L501.4021, L500.2500 ####[facility] [address] [place], [address] Platelet mean volume (Bld) [Entitic vol] 10.3 fL Normal 6.2-12.0 [facility] Comment on above: Performed By: #### L 100.0100, L501.4021, L500.2500 ####[facility] [address] [place], [address] Platelets (Bld) [#/Vol] 346 10*3/uL Normal 150-450 [facility] Comment on above: Performed By: #### L 100.0100, L501.4021, L500.2500 ####[facility] [address] [place], [address] RBC (Bld) [#/Vol] 5.78 10*6/uL Normal 4.6-6.2 [facility] Comment on above: Performed By: #### L 100.0100, L501.4021, L500.2500 ####[facility] [address] [place], [address] RDW SD 43.9 fl Normal 35.1-43.9 [facility] Comment on above: Performed By: #### L 100.0100, L501.4021, L500.2500 ####[facility] [address] [place], [address] WBC (Bld) [#/Vol] 13.4 10*3/uL High 4.4-11.0 [facility] Comment on above: Performed By: #### L 100.0100, L501.4021, L500.2500 ####[facility] [address] [place], [address] CO2 (BldV) [Moles/Vol]Ordere d By: Keisha Handy on 10-19-2024 CO2 [Moles/Vol] 25 mmol/L 23-33 [facility] CO2 (BldV) [Partial pressure ]Ordered By: Keisha Handy on 10-19-2024 Bed Mix Venous Bld PCO2 at Pat Temp 41.4 mmHg 41-51 [facility] Carbon dioxide, total [Moles /volume] in Central venous bloodOrdered By: Keisha Handy on 10-19-2024 CO2 [Moles/Vol] 20.5 mmol/L Low 21.0-32.0 [facility] Comment on above: Previous reported re sult: 22.7 mmol/LEdited by: AUTOINS on 10/19/24:0209 AMENDED REPORT 10/19/24 0209 CO2 previously reported as: 22.7 mmol/L Chest PA and Lateralon 10-19 Chest PA and Lateral [facility] Imaging Services [address] [place] [address] Chest PA and Lateral MR#: [id number] Acct: [id number] Name: ALEAUNA JUAN Rep #: [id number] : 1995 M 29 From: Tirso Massey MD PCP: Dr. Deangelo Noel MD Status: PRE ER Study: Chest PA and Lateral Date of Exam: 10/19/24 Exam# [id number] Ordering Dr: Keisha Handy DO PROCEDURE: CHEST PA AND LATERAL REASON FOR EXAM: CHEST PAIN TECHNIQUE: PA and lateral views of the chest. COMPARISON: 02/15/2023 FINDINGS: The lungs are clear. The cardiac and mediastinal contours are within limits. The visualized osseous structures appear within limits. RAD/Chest PA and Lateral IMPRESSION: No evidence of acute disease. Reading Location: [facility] CC: Dr. Keisha Handy DO; Dr. Deangelo Noel MD Manager Pharmaceutical: Signed Normal [facility] Chloride assayOrdered By: Javier Handy on 10-19-2024 Chloride [Moles/Vol] 92 mmol/L Low 98-108 [facility] Comment on above: Previous reported re sult: 93 mmol/LEdited by: AUTOINS on 10/19/24:0209 AMENDED REPORT 10/19/24 0209 CL previously reported as: 93 L mmol/L D-Dimer Quantitative (DVT/PE )on 10-19-2024 D-DIMER QUANT 0.28 FEU/ug/m Normal 0.27-0.49 [facility] Comment on above: Result Comment: NORM AL D-Dimer level (<0.50) indicates no DVT or PE. Performed By: #### L 100.0100, L300.8000, L501.9520, L505.5000, L500.2500 #### [facility] [place], [address] D-dimer measurement for deep venous thrombosisOrdered By: Keisha Handy on 10-19-2024 D-Dimer Quantitative (PE/DVT) 0.28 FEU/ug/m 0.27-0.49 [facility] Comment on above: NORMAL D-Dimer level (<0.50) indicates no DVT or PE. Emergency Department Summary on 10-19-2024 Emergency Department Summary [facility] Medical Records Department [address] [place] [address] Emergency Department Summary 10/19/24 MR#: [id number] Acct: [id number] Name: UNA COSBY Rep #: [id number] : 1995 29 From: Keisha Handy DO [...] complaints or concerns reported at this time. 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 Normal [facility] Eosinophil percentageOrdered By: Keisha Handy on 10-19-2024 Eosinophils/100 WBC (Bld) 1.5 % 0-5 [facility] Epithelial cells.squamous LM Ql (Urine sed)Ordered By: Keisha Handy on 10-19-2024 Epithelial cells.squamous LM.HPF (Urine sed) [#/Area] 0 /[HPF] 0-5 [facility] Erythrocyte distribution wid th ratioOrdered By: Keisha Handy on 10-19-2024 Erythrocyte distribution width (RBC) [Ratio] 16.5 % High 11.6-14.6 [facility] Erythrocyte distribution wid th standard deviationOrdered By: Keisha Handy on 10-19-2024 Erythrocyte distribution width (RBC) [Entitic vol] 43.9 fL 35.1-43.9 [facility] Erythrocyte distribution width (RBC) [Ratio] 43.9 fl 35.1-43.9 [facility] Estimation of creatinine riley aranceOrdered By: Keisha Handy on 10-19-2024 Estimated Creatinine Clearance Calc 163.42 ml/min 50-250 [facility] GFR/1.73 sq M.predicted baldev g non-blacks MDRD (S/P/Bld) [Vol rate/Area]Ordered By: Keisha Handy on 10-19-2024 Estimated GFR (MDRD) Non-Af Amer 134 >60 [facility] Comment on above: mL/min/1.73m2 CKD-EP I Creatinine Equation (2020) Glomerular filtration rate ( GFR) estimation/1.73 sq m using serum, plasma, or whole bOrdered By: Keisha Handy on 10-19-2024 GFR/1.73 sq M.predicted among non-blacks MDRD (S/P/Bld) [Vol rate/Area] 134 mL/min/{1.73_m2} >60 [facility] Comment on above: mL/min/1.73m2 CKD-EP I Creatinine Equation (2020) Glucose Ql (U)Ordered By: Javier Handy on 10-19-2024 Glucose (U) [Mass/Vol] 1000 mg/dL High Normal [facility] deOrdered By: Keisha Handy on 10-19-2024 Bedside Glucose (Misc Panel) 312 mg/dL High 74-106 [facility] Comment on above: MANAGEMENT OF PATIEN T CARE PER NURSING PROTOCOL Glucose [Mass/Vol] 312 mg/dL High 74-106 [facility] Comment on above: MANAGEMENT OF PATIEN T CARE PER NURSING PROTOCOL Hematocrit Auto (Bld) [Volum e fraction]Ordered By: Keisha Handy on 10-19-2024 Hematocrit (Bld) [Volume fraction] 43.5 % 40-54 [facility] Hemoglobin measurementOrdere d By: Keisha Handy on 10-19-2024 Hemoglobin (Bld) [Mass/Vol] 13.4 g/dL 13.0-16.5 [facility] Immature granulocytes/100 WB C Auto (Bld)Ordered By: Keisha Handy on 10-19-2024 Immature granulocytes/100 WBC (Bld) 0.400 % 0.0-0.9 [facility] Comment on above: IG% - Immature Granu locytes (promyelocytes, myelocytes and metamyelocytes) > 1% indicates that a LEFT SHIFT is Present. Ketones Test strip Ql (U)Ord ered By: Keisha Handy on 10-19-2024 Ketones Ql (U) 15 mg/dl High Negative [facility] L499.0042on 10-19-2024 Trop T High Sen 9 ng/L Normal <=22 [facility] Comment on above: Performed By: #### L 100.0100, L300.8000, L501.9520, L505.5000, L500.2500 #### [facility] [address] [place], [address] L501.4021on 10-19-2024 Trop T High Sen 8 ng/L Normal <=22 [facility] Comment on above: Result Comment: AMENDED REPORT 10/19/24 0201 Trop T High Sen previously reported as: 7 ng/L Performed By: #### L 100.0100, L501.4021, L500.2500 ####[facility] [address] [place], [address] L501.6901on 10-19-2024 BETA-HYDROXYBUT 0.6 mmol/L Normal 0.0-0.3 [facility] Comment on above: Performed By: #### L 100.0100, L300.8000, L501.9520, L505.5000, L500.2500 #### [facility] [address] [place], [address] Lymphocytes Auto (Unsp spec) [#/Vol]Ordered By: Keisha Handy on 10-19-2024 Lymphocytes (Bld) [#/Vol] 3.70 10*3/uL 0.83-4.51 [facility] Lymphocytes/100 WBC Auto (Un sp spec)Ordered By: Keisha Handy on 10-19-2024 Lymphocytes/100 WBC (Bld) 27.7 % 19-41 [facility] MCV (mean corpuscular volume ) determinationOrdered By: Keisha Handy on 10-19-2024 MCV (RBC) [Entitic vol] 75.3 fL Low 80-94 [facility] Mean corpuscular hemoglobin (MCH) determinationOrdered By: Keisha Handy on 10-19-2024 MCH (RBC) [Entitic mass] 23.2 pg Low 27.0-32.0 [facility] Mean corpuscular hemoglobin concentration (MCHC) determinationOrdered By: Keisha Handy on 10-19-2024 MCHC (RBC) [Mass/Vol] 30.8 g/dL Low 32-36 [facility] Mean platelet volume determi nationOrdered By: Keisha Handy on 10-19-2024 Platelet mean volume (Bld) [Entitic vol] 10.3 fL 6.2-12.0 [facility] Microscopic analysis of urin e for red blood cells (RBC)Ordered By: Keisha Handy on 10-19-2024 Microscopic analysis of urine for red blood cells (RBC) 0-5 SEEN /hpf 0-5 [facility] Urine RBC 0-5 SEEN /hpf 0-5 [facility] Monocyte percentageOrdered B y: Keisha Handy on 10-19-2024 Monocytes/100 WBC (Bld) 6.2 % 0-10 [facility] Mucus LM Ql (Urine sed)Order ed By: Keisha Handy on 10-19-2024 Mucus Ql (Urine sed) 0 SEEN /hpf [facility] Neutrophil percentageOrdered By: Keisha Handy on 10-19-2024 Neutrophils/100 WBC (Bld) 63.5 % 47-70 [facility] Nitrite Test strip Ql (U)Ord ered By: Keisha Handy on 10-19-2024 Nitrite Ql (U) Negative Negative [facility] No Panel InformationOrdered By: Keisha Handy on 10-19-2024 Blood Gas Sample Site Not entered [facility] Blood Gas Specimen Type JAIDEN [facility] Oxygen Delivery Device Room Air [facility] Beta-Hydroxybutyric Acid mmol/L 0.6 mmol/L 0.0-0.3 [facility] Troponin T High Sensitivity 8 ng/L <22 [facility] Comment on above: Previous reported re sult: 7 ng/LEdited by: LUCERO on 10/19/24:0201 AMENDED REPORT 10/19/24 0201 Trop T High Sen previously reported as: 7 ng/L Nucleated red blood cell per centageOrdered By: Keisha Handy on 10-19-2024 Nucleated RBC/100 WBC (Bld) [Ratio] 0 % 0-5 [facility] Oxygen (BldV) [Partial press ure]Ordered By: Keisha Handy on 10-19-2024 Venous Blood Partial Pressure O2 32 mmHg 25-40 [facility] Platelet countOrdered By: Javier Handy on 10-19-2024 Platelets (Bld) [#/Vol] 346 10*3/uL 150-450 [facility] Potassium (Unsp spec) [Mass/ Vol]Ordered By: Keisha Handy on 10-19-2024 Potassium [Moles/Vol] 4.1 mmol/L 3.3-5.1 [facility] Potassium measurement (mass/ volume)Ordered By: Keisha Handy on 10-19-2024 Potassium (Unsp spec) [Mass/Vol] 4.1 mmol/L 3.3-5.1 [facility] Protein Test strip Ql (U)Ord ered By: Keisha Handy on 10-19-2024 Protein Ql (U) 100 mg/dl High Negative [facility] RBC Auto (Bld) [#/Vol]Ordere d By: Keisha Handy on 10-19-2024 RBC (Bld) [#/Vol] 5.78 10*6/uL 4.6-6.2 [facility] Serum creatinine measurement (mass/volume)Ordered By: Keisha Handy on 10-19-2024 Creatinine [Mass/Vol] 0.63 mg/dL Low 0.70-1.20 [facility] Serum glucose measurement (m ass/volume)Ordered By: Keisha Handy on 10-19-2024 Glucose [Mass/Vol] 458 mg/dL High 70-99 [facility] Comment on above: Critical Result(s) C alled at:0208 by: SERAFIN BELL TO RN SHUFF2 Results read back by same.Previous reported result: 457 mg/dLEdited by: LUCERO on 10/19/24:0209 AMENDED REPORT 10/19/24 0209 GLU previously reported as: 457 *H mg/dL Serum or plasma calcium koby urement (mass/volume)Ordered By: Keisha Handy on 10-19-2024 Calcium [Mass/Vol] 8.9 mg/dL 7.6-11.0 [facility] Serum or plasma urea nitroge n measurement (mass/volume)Ordered By: Keisha Handy on 10-19-2024 Urea nitrogen [Mass/Vol] 17 mg/dL 4-19 [facility] Comment on above: Previous reported re sult: 16 mg/dLEdited by: LUCERO on 10/19/24:0209 AMENDED REPORT 10/19/24208 BUN previously reported as: 16 mg/dL Sodium levelOrdered By: Roger Handy on 10-19-2024 Sodium [Moles/Vol] 129 mmol/L Low 133-145 [facility] Comment on above: Previous reported re sult: 130 mmol/LEdited by: LUCERO on 10/19/24:0209 AMENDED REPORT 10/19/24208 NA previously reported as: 130 L mmol/L Squamous epithelial cells de tection in urine sediment by light microscopyOrdered By: Keisha Handy on 10-19-2024 Epithelial cells.squamous LM Ql (Urine sed) 0-5 SEEN /hpf 0-5 [facility] Troponin T.cardiac High sens itivity method [Mass/Vol]Ordered By: Keisha Handy on 10-19-2024 Troponin T High Sensitivity 2 Hour 9 ng/L <22 [facility] Troponin T.cardiac [Mass/vol ume] in Serum or Plasma by High sensitivity methodOrdered By: Keisha Handy on 10-19-2024 Troponin T.cardiac High sensitivity method [Mass/Vol] 9 ng/L <22 [facility] Urinalysis, Completeon 10-19 BACTERIA 1+ /hpf Normal None Seen [facility] Comment on above: Order Comment: MANN CTOR TO SPECIFY Performed By: #### L 100.0100, L300.8000, L501.9520, L505.5000, L500.2500 #### [facility] [address] [place], [place], [id number] EPI,SQUAMOUS 0-5 SEEN Normal 0-5 [facility] Comment on above: Order Comment: MANN CTOR TO SPECIFY Performed By: #### L 100.0100, L300.8000, L501.9520, L505.5000, L500.2500 #### [facility] [address] [place], [address] RBC 0-5 SEEN Normal 0-5 [facility] Comment on above: Order Comment: MANN CTOR TO SPECIFY Performed By: #### L 100.0100, L300.8000, L501.9520, L505.5000, L500.2500 #### [facility] [address] [place], [address] Mucus Ql (Urine sed) 0 SEEN Normal [facility] Comment on above: Order Comment: MANN CTOR TO SPECIFY Performed By: #### L 100.0100, L300.8000, L501.9520, L505.5000, L500.2500 #### [facility] [address] [place], [address] WBC 0 SEEN Normal 0-5 [facility] Comment on above: Order Comment: MANN CTOR TO SPECIFY Performed By: #### L 100.0100, L300.8000, L501.9520, L505.5000, L500.2500 #### [facility] [address] [place], [address] Urine blood detectionOrdered By: Keisha Handy on 10-19-2024 Urine Occult Blood 25 /ul High Negative [facility] [facility] Urine clarityOrdered By: Soraida Handy on 10-19-2024 Clarity (U) Clear Clear [facility] Urine color determinationOrd ered By: Keisha Handy on 10-19-2024 Color (U) Yellow Yellow [facility] Urine glucose detectionOrder ed By: Keisha Handy on 10-19-2024 Glucose Ql (U) 1000 mg/dl High Normal [facility] Urine leukocyte esterase det ection by dipstickOrdered By: Keisha Handy on 10-19-2024 Leukocyte esterase Test strip Ql (U) Negative Negative [facility] Urine pHOrdered By: Keisha santiago on 10-19-2024 pH (U) 6.0 [pH] 5.0 - 8.0 [facility] Urine sediment bacteria coun t by microscopy (number/high power field)Ordered By: Keisha Handy on 10-19-2024 Bacteria LM.HPF (Urine sed) [#/Area] 1 /[HPF] None Seen [facility] Urine specific gravity measu rementOrdered By: Keisha Handy on 10-19-2024 Specific gravity (U) [Rel density] 1.010 1.002-1.03 0 [facility] Urine urobilinogen measureme ntOrdered By: Keisha Handy on 10-19-2024 Urobilinogen Ql (U) Normal mg/dl Normal [facility] Urobilinogen Ql (U)Ordered B y: Keisha Handy on 10-19-2024 Urine Urobilinogen Normal mg/dl Normal [facility] Venous Blood Gason Blood Gas Type JAIDEN Normal [facility] Comment on above: Performed By: #### L 9000.0810 ####[facility] [address] [place], [address] CO2 [Moles/Vol] 25 mmol/L Normal 23-33 [facility] Comment on above: Performed By: #### L 9000.0810 ####[facility] [address] [place], [address] HCO3 (Bld) [Moles/Vol] 23 mmol/L Normal 22-26 [facility] Comment on above: Performed By: #### L 9000.0810 ####[facility] [address] [place], [address] O2 Delivery Dev Room Air Normal [facility] Comment on above: Performed By: #### L 9000.0810 ####[facility] [address] [place], [address] SITE Not entered Normal [facility] Comment on above: Performed By: #### L 9000.0810 ####[facility] [address] [place], [address] VBG BE -2 mmol/L Low -1.0-3.5 [facility] Comment on above: Performed By: #### L 9000.0810 ####[facility] [address] [place], [place], [address] VBG pCO2 41.4 mmHg Normal 41-51 [facility] Comment on above: Performed By: #### L 9000.0810 ####[facility] [address] [place], [place], [address] VBG pH 7.36 Normal 7.32-7.42 [facility] Comment on above: Performed By: #### L 9000.0810 ####[facility] [address] [place], [address] VBG PO2 32 mmHg Normal 25-40 [facility] Comment on above: Performed By: #### L 9000.0810 ####[facility] [address] [place], [place], [address] VBG SO2 59 Normal 50-70 [facility] Comment on above: Performed By: #### L 9000.0810 ####[facility] [address] [place], [place], [address] Venous blood base excess yaya surementOrdered By: Keisha Handy on 10-19-2024 Base excess Calc (BldV) [Moles/Vol] -2 mmol/L Low -1.0-3.5 [facility] Venous blood bicarbonate yaya surementOrdered By: Keisha Handy on 10-19-2024 HCO3 (Bld) [Moles/Vol] 23 mmol/L 22-26 [facility] Venous blood oxygen saturati on measurementOrdered By: Keisha Handy on 10-19-2024 Oxygen saturation in Blood 59 % 50-70 [facility] Venous blood pH measurementO rdered By: Keisha Handy on 10-19-2024 pH (BldV) 7.36 [pH] 7.32-7.42 [facility] Venous blood partial pressur e of carbon dioxide measurementOrdered By: Keisha Handy on 10-19-2024 CO2 (BldV) [Partial pressure] 41.4 mm[Hg] 41-51 [facility] Venous blood partial pressur e of oxygen measurementOrdered By: Keisha Handy on 10-19-2024 Oxygen (BldV) [Partial pressure] 32 mm[Hg] 25-40 [facility] White blood cell (WBC) count Ordered By: Keisha Handy on 10-19-2024 WBC (Bld) [#/Vol] 13.4 10*3/uL High 4.4-11.0 [facility] White blood cell countOrdere d By: Keisha Handy on 10-19-2024 Urine WBC 0 SEEN /hpf 0-5 [facility] White blood cell count 0 SEEN /hpf 0-5 [facility] pH (BldV)Ordered By: Keisha Handy on 10-19-2024 Venous Blood pH 7.36 7.32-7.42 [facility] CBC W Auto Differential pane l (Bld)on 10-10-2024 Basophils (Bld) [#/Vol] 0.06 10*3/uL Normal <0.11 [facility] Comment on above: Order Comment: Speci men Type: BLOOD SPECIMEN Ordering Facility: [facility] Address: [address] [place] [address] Performed By: #### 5 7021-8 #### [facility] CLIA [id number] [address] [place] [address] [place] Basophils/100 WBC (Bld) 0.5 % Normal [facility] Comment on above: Order Comment: Speci men Type: BLOOD SPECIMEN Ordering Facility: [facility] Address: [address] [place] [address] Performed By: #### 5 7021-8 #### [facility] CLIA [id number] [address] [place] [address] [place] Differential cell count method Nom (Bld) Auto Normal [facility] Comment on above: Order Comment: Speci men Type: BLOOD SPECIMEN Ordering Facility: [facility] Address: [address] [place] [address] Performed By: #### 5 7021-8 #### [facility] CLIA [id number] [address] [place] [address] [place] Eosinophils (Bld) [#/Vol] 0.20 10*3/uL Normal <0.46 [facility] Comment on above: Order Comment: Speci men Type: BLOOD SPECIMEN Ordering Facility: [facility] Address: [address] [place] [address] Performed By: #### 5 7021-8 #### [facility] CLIA [id number] [address] [place] [address] [place] Eosinophils/100 WBC (Bld) 1.6 % Normal [facility] Comment on above: Order Comment: Speci men Type: BLOOD SPECIMEN Ordering Facility: [facility] Address: [address] [place] [address] Performed By: #### 5 7021-8 #### [facility] CLIA [id number] [address] [place] [address] [place] Erythrocyte distribution width (RBC) [Ratio] 16.2 % High 11.5-15.0 [facility] Comment on above: Order Comment: Speci men Type: BLOOD SPECIMEN Ordering Facility: [facility] Address: [address] [place] [address] Performed By: #### 5 7021-8 #### [facility] CLIA [id number] [address] [place] [address] [place] Hematocrit (Bld) [Volume fraction] 42.3 % Normal 39.0-51.0 [facility] Comment on above: Order Comment: Speci men Type: BLOOD SPECIMEN Ordering Facility: [facility] Address: [address] [place] [address] Performed By: #### 5 7021-8 #### [facility] CLIA [id number] [address] [place] [address] [place] Hemoglobin (Bld) [Mass/Vol] 13.0 g/dL Normal 13.0-17.0 [facility] Comment on above: Order Comment: Speci men Type: BLOOD SPECIMEN Ordering Facility: [facility] Address: [address] [place] [address] Performed By: #### 5 7021-8 #### [facility] CLIA [id number] [address] [place] [address] [place] Immature granulocytes (Bld) [#/Vol] 0.04 10*3/uL Normal <0.10 [facility] Comment on above: Order Comment: Speci men Type: BLOOD SPECIMEN Ordering Facility: [facility] Address: [address] [place] [address] Performed By: #### 5 7021-8 #### [facility] CLIA [id number] [address] [place] [address] [place] Immature granulocytes/100 WBC (Bld) 0.3 % Normal [facility] Comment on above: Order Comment: Speci men Type: BLOOD SPECIMEN Ordering Facility: [facility] Address: [address] [place] [address] Performed By: #### 5 7021-8 #### [id number] [address] [place] [address] [place] Lymphocytes (Bld) [#/Vol] 4.12 10*3/uL High 1.00-4.00 [facility] Comment on above: Order Comment: Speci men Type: BLOOD SPECIMEN Ordering Facility: [facility] Address: [address] [place] [address] Performed By: #### 5 7021-8 #### [facility] CLIA [id number] [address] [place] [address] [place] Lymphocytes/100 WBC (Bld) 33.4 % Normal [facility] Comment on above: Order Comment: Speci men Type: BLOOD SPECIMEN Ordering Facility: [facility] Address: [address] [place] [address] Performed By: #### 5 7021-8 #### [facility] CLIA [id number] [address] [place] [address] [place] MCH (RBC) [Entitic mass] 23.2 pg Low 26.0-34.0 [facility] Comment on above: Order Comment: Speci men Type: BLOOD SPECIMEN Ordering Facility: [facility] Address: [address] [place] [address] Performed By: #### 5 7021-8 #### [facility] CLIA [id number] [address] [place] [address] [place] MCHC (RBC) [Mass/Vol] 30.7 g/dL Normal 30.5-36.0 [facility] Comment on above: Order Comment: Speci men Type: BLOOD SPECIMEN Ordering Facility: [facility] Address: [address] [place] [address] Performed By: #### 5 7021-8 #### [id number] [address] [place] [address] [place] MCV (RBC) [Entitic vol] 75.4 fL Low 80.0-100.0 [facility] Comment on above: Order Comment: Speci men Type: BLOOD SPECIMEN Ordering Facility: [facility] Address: [address] [place] [address] Performed By: #### 5 7021-8 #### [facility] CLIA [id number] [address] [place] [address] [place] Monocytes (Bld) [#/Vol] 0.97 10*3/uL High <0.87 [facility] Comment on above: Order Comment: Speci men Type: BLOOD SPECIMEN Ordering Facility: [facility] Address: [address] [place] [address] Performed By: #### 5 7021-8 #### [facility] CLIA [id number] [address] [place] [address] [place] Monocytes/100 WBC (Bld) 7.9 % Normal [facility] Comment on above: Order Comment: Speci men Type: BLOOD SPECIMEN Ordering Facility: [facility] Address: [address] [place] [address] Performed By: #### 5 7021-8 #### [facility] CLIA [id number] [address] [place] [address] [place] Neutrophils (Bld) [#/Vol] 6.94 10*3/uL Normal 1.45-7.50 [facility] Comment on above: Order Comment: Speci men Type: BLOOD SPECIMEN Ordering Facility: [facility] Address: [address] [place] [address] Performed By: #### 5 7021-8 #### [facility] CLIA [id number] [address] [place] [address] [place] Neutrophils/100 WBC (Bld) 56.3 % Normal [facility] Comment on above: Order Comment: Speci men Type: BLOOD SPECIMEN Ordering Facility: [facility] Address: [address] [place] [address] Performed By: #### 5 7021-8 #### [facility] CLIA [id number] [address] [place] [address] [place] Nucleated RBC (Bld) [#/Vol] 10*3/uL Normal <0.01 [facility] Comment on above: Order Comment: Speci men Type: BLOOD SPECIMEN Ordering Facility: [facility] Address: [address] [place] [address] Performed By: #### 5 7021-8 #### [facility] CLIA [id number] [address] [place] [address] [place] Nucleated RBC/100 WBC (Bld) [Ratio] 0.0 /100 WBC Normal [facility] Comment on above: Order Comment: Speci men Type: BLOOD SPECIMEN Ordering Facility: [facility] Address: [address] [place] [address] Performed By: #### 5 7021-8 #### [facility] CLIA [id number] [address] [place] [address] [place] Platelet mean volume (Bld) [Entitic vol] 11.3 fL Normal 9.0-12.7 [facility] Comment on above: Order Comment: Speci men Type: BLOOD SPECIMEN Ordering Facility: [facility] Address: [address] [place] [address] Performed By: #### 5 7021-8 #### [facility] CLIA [id number] [address] [place] [address] [place] Platelets (Bld) [#/Vol] 403 10*3/uL High 150-400 [facility] Comment on above: Order Comment: Speci men Type: BLOOD SPECIMEN Ordering Facility: [facility] Address: [address] [place] [address] Performed By: #### 5 7021-8 #### [facility] CLIA [id number] [address] [place] [address] [place] RBC (Bld) [#/Vol] 5.61 10*6/uL Normal 4.20-6.00 [facility] Comment on above: Order Comment: Speci men Type: BLOOD SPECIMEN Ordering Facility: [facility] Address: [address] [place] [address] Performed By: #### 5 7021-8 #### [facility] CLIA [id number] [address] [place] [address] [place] WBC (Bld) [#/Vol] 12.33 10*3/uL High 3.70-11.00 [facility] Comment on above: Order Comment: Speci men Type: BLOOD SPECIMEN Ordering Facility: [facility] Address: [address] [facility], [place] [address] Performed By: #### 5 7021-8 #### [facility] CLIA [id number] [address] [place] [address] [place] Comprehensive metabolic 2000 panelon 10-10-2024 Albumin [Mass/Vol] 3.8 g/dL Low 3.9-4.9 [facility] Comment on above: Order Comment: Speci men Type: BLOOD SPECIMEN Ordering Facility: [facility] Address: [address] [place] [address], [place] [address] Performed By: #### 2 4323-8, 3016-3 #### [facility] CLIA [id number] [address] [place] #### 98865-1 #### [facility] CLIA [id number] [address] [place] [address] [place] [facility] CLIA [id number] [address] [place] [address] [place] ALP [Catalytic activity/Vol] 175 U/L High 38-113 [facility] Comment on above: Order Comment: Speci men Type: BLOOD SPECIMEN Ordering Facility: [facility] Address: [address] [place] [address], [place] [address] Performed By: #### 2 4323-8, 6-3 #### [facility] CLIA [id number] [address] [place] #### 04944-5 #### [facility] CLIA [id number] [address] [place] [address] [place] [facility] CLIA [id number] [address] [place] [address] [place] ALT With P-5'-P [Catalytic activity/Vol] 22 U/L Normal 10-54 [facility] Comment on above: Order Comment: Speci men Type: BLOOD SPECIMEN Ordering Facility: [facility] Address: [address] [facility], [place] [address] Performed By: #### 2 4323-8, 3016-3 #### [facility] CLIA [id number] [address] [place] #### 75404-8 #### [facility] CLIA [id number] 1 [place] [address] [place] [facility] CLIA [id number] [address] [place] Anion gap [Moles/Vol] 16 mmol/L High 8-15 [facility] Comment on above: Order Comment: Speci men Type: BLOOD SPECIMEN Ordering Facility: [facility] Address: [address] [place] [address], [place] [address] Performed By: #### 2 4323-8, 6-3 #### [facility] CLIA [id number] [address] [place] #### 98035-2 #### [facility] CLIA [id number] [address] STATES OF [facility] CLIA [id number] [address] [place] [address] [place] AST With P-5'-P [Catalytic activity/Vol] 16 U/L Normal 14-40 [facility] Comment on above: Order Comment: Speci men Type: BLOOD SPECIMEN Ordering Facility: [facility] Address: [address] [place] [address], [place] [address] Performed By: #### 2 4323-8, 6-3 #### [facility] CLIA [id number] [address] [place] #### 03135-6 #### [facility] CLIA [id number] 1 [place] [address] [place] [facility] CLIA [id number] [address] [place] [address] [place] Bilirubin [Mass/Vol] 0.2 mg/dL Normal 0.2-1.3 [facility] Comment on above: Order Comment: Speci men Type: BLOOD SPECIMEN Ordering Facility: [facility] Address: [address] [facility], [place] [address] Performed By: #### 2 4323-8, 3016-3 #### [facility] CLIA [id number] [address] #### 68228-6 #### [facility] CLIA [id number] [address] OF [facility] CLIA [id number] [address] [place] Calcium [Mass/Vol] 8.9 mg/dL Normal 8.5-10.2 [facility] Comment on above: Order Comment: Speci men Type: BLOOD SPECIMEN Ordering Facility: [facility] Address: [address] [place] [address], [place] [address] Performed By: #### 2 43238, 6-3 #### [facility] CLIA [id number] [address] #### 34497-7 #### [facility] CLIA [id number] [address] OF [facility] CLIA [id number] [address] OF [facility] Chloride [Moles/Vol] 88 mmol/L Low 98-107 [facility] Comment on above: Order Comment: Speci men Type: BLOOD SPECIMEN Ordering Facility: [facility] Address: [address] [place] [address], [place] [address] Performed By: #### 2 4323-8, 6-3 #### [facility] CLIA [id number] [address] OF [place] #### 11976-1 #### [facility] CLIA [id number] 1 [place], [place] [address] [place] [address] OF [facility] CLIA [id number] [address] [place] [address] [place] CO2 [Moles/Vol] 23 mmol/L Normal 22-30 [facility] Comment on above: Order Comment: Speci men Type: BLOOD SPECIMEN Ordering Facility: [facility] Address: [address] [place] [address], [place] [address] Performed By: #### 2 4323-8, 3016-3 #### [facility] CLIA [id number] [address] OF [place] #### 30438-8 #### [facility] CLIA [id number] 1 [place] [address] [place] [facility] CLIA [id number] [address] [place] [address] [place] Creatinine [Mass/Vol] 0.64 mg/dL Low 0.73-1.22 [facility] Comment on above: Order Comment: Speci men Type: BLOOD SPECIMEN Ordering Facility: [facility] Address: [address] [place] [address], [place] [address] Performed By: #### 2 4323-8, 3016-3 #### [facility] CLIA [id number] [address] OF [place] #### 40380-7 #### [facility] CLIA [id number] [address] [place] [facility] CLIA [id number] [address] [place] [address] [place] Creatinine and Glomerular filtration rate.predicted panel (S/P/Bld) 133 mL/min/1.73m??? Normal >=60 [facility] Comment on above: Order Comment: Speci men Type: BLOOD SPECIMEN Ordering Facility: [facility] Address: [address] [place] [address], [place] [address] Result Comment: Tara mated Glomerular Filtration Rate [...] 4323-8, 6-3 #### [facility] CLIA [id number] [address] #### 46461-7 #### [facility] CLIA [id number] [address] CLIA [id number] [address] Glucose [Mass/Vol] 659 mg/dL High 74-99 [facility] Comment on above: Order Comment: Speci men Type: BLOOD SPECIMEN Ordering Facility: Nasreen Giladriana [facility] Address: [address] [place] [address] Result Comment: The [place] [employer] (ADA) provides guidance for cutoff [...] Standards of Medical Care in Diabetes 2016, [place] [employer]. Diabetes Care. 2016.39(Suppl 1). Performed By: #### 2 4323-8, 3015-3 #### [facility] CLIA [id number] [address] #### 07265-0 #### [facility] CLIA [id number] [address] [place] [facility] CLIA [id number] [address] [place] [address] [place] Potassium [Moles/Vol] 4.5 mmol/L Normal 3.7-5.1 [facility] Comment on above: Order Comment: Speci men Type: BLOOD SPECIMEN Ordering Facility: [facility] Address: [address] [facility], [place] [address] Performed By: #### 2 4323-8, 3016-3 #### [facility] CLIA [id number] [address] [place] #### 65482-6 #### [facility] CLIA [id number] 1 [place] [address] [place] [facility] CLIA [id number] 1 [place] [address] [place] Protein [Mass/Vol] 6.9 g/dL Normal 6.3-8.0 [facility] Comment on above: Order Comment: Speci men Type: BLOOD SPECIMEN Ordering Facility: [facility] Address: [address] [facility], [place] [address] Performed By: #### 2 4323-8, 6-3 #### [facility] CLIA [id number] [address] [place] #### 85310-3 #### [facility] CLIA [id number] 1 [place] [address] [place] [facility] CLIA [id number] [address] [place] [address] [place] Sodium [Moles/Vol] 127 mmol/L Low 136-144 [facility] Comment on above: Order Comment: Speci men Type: BLOOD SPECIMEN Ordering Facility: [facility] Address: [address] [facility], [place] [address] Performed By: #### 2 4323-8, 6-3 #### [facility] CLIA [id number] [address] [place] #### 24367-7 #### [facility] CLIA [id number] 1 [place] [address] [place] [facility] CLIA [id number] [address] [place] Urea nitrogen [Mass/Vol] 17 mg/dL Normal 9-24 [facility] Comment on above: Order Comment: Speci men Type: BLOOD SPECIMEN Ordering Facility: [facility] Address: [address] [place] [address], [place] [address] Performed By: #### 2 4323-8, 3016-3 #### [facility] CLIA [id number] [address] [place] #### 48307-6 #### [facility] CLIA [id number] 1 [place] [address] [place] [facility] CLIA [id number] [address] [place] [address] OF [facility] Lipid 1996 panelon 5 Cholesterol [Mass/Vol] 177 mg/dL Normal <200 [facility] Comment on above: Order Comment: Speci men Type: BLOOD SPECIMEN Ordering Facility: [facility] Address: [address] [facility], [place] [address] Result Comment: <200 mg/dL, Desirable 200-239 mg/dL, Borderline high >239 mg/dL, High Performed By: #### 2 4323-8, 3016-3 #### [facility] CLIA [id number] [address] [place] #### [address]-9 #### [facility] CLIA [id number] 1 [place] [address] [place] [facility] CLIA [id number] [address] [place] [address] [place] Cholesterol in HDL [Mass/Vol] 46 mg/dL Normal >39 [facility] Comment on above: Order Comment: Noemi adrian Type: BLOOD SPECIMEN Ordering Facility: [facility] Address: [address] [place] [address] Result Comment: 40-5 9 mg/dL, Acceptable >59 mg/dL, High: Negative risk factor for coronary heart disease <40 mg/dL, Low: Positive risk factor for coronary heart disease Performed By: #### 2 4323-8, 3016-3 #### [facility] CLIA [id number] [address] #### [address]6979-0 #### [facility] CLIA [id number] [address] CLIA [id number] [address] [place] [address] Cholesterol in LDL [Mass/Vol] 86 mg/dL Normal <100 [facility] Comment on above: Order Comment: Noemi men Type: BLOOD SPECIMEN Ordering Facility: [facility] Address: [address] [place] [address] Result Comment: <100 mg/dL, Optimal 100-129 mg/dL, Near optimal/above optimal 130-159 mg/dL, Borderline high 160-189 mg/dL, High >189 mg/dL, Very high Secondary prevention optimal LDL Cholesterol levels are recommended to be < 70 mg/dL Performed By: #### 2 4323-8, 3016-3 #### [facility] CLIA [id number] [address] #### 06275-2 #### [facility] CLIA [id number] [address] CLIA [id number] [address] [place] [address] Cholesterol in LDL/Cholesterol in HDL [Mass ratio] 1.87 {ratio} Normal <2.54 [facility] Comment on above: Order Comment: Noemi men Type: BLOOD SPECIMEN Ordering Facility: [facility] Address: [address] [place] [address] Result Comment: Philomena kirkland: 1. National Cholesterol Education Program ATP III Guideline At-A-Glance Quick Desk Reference: National Heart, Lung, and Blood [place]. National Institutes of Health. 2001: NIH Publication No. 01-3305. 2. An International Atherosclerosis Society position paper: global recommendations for the management of dyslipidemia: executive summary, Atherosclerosis. 2014: 232(2):410-413. Performed By: #### 2 4323-8, 3016-3 #### [facility] CLIA [id number] [address] #### 25468-7 #### [facility] CLIA [id number] [address] CLIA [id number] [address] [place] [address] [place] Cholesterol in VLDL [Mass/Vol] 45 mg/dL High <30 [facility] Comment on above: Order Comment: Speci men Type: BLOOD SPECIMEN Ordering Facility: [facility] Address: [address] [place] [address] Performed By: #### 2 4323-8, 6-3 #### [facility] CLIA [id number] [address] #### 56685-1 #### [facility] CLIA [id number] [address] CLIA [id number] [address] [place] [address] [place] Cholesterol non HDL [Mass/Vol] 131 mg/dL High <130 [facility] Comment on above: Order Comment: Speci men Type: BLOOD SPECIMEN Ordering Facility: [facility] Address: [address] [place] [address] Result Comment: <130 mg/dL, Optimal 130-159 mg/dL, Near optimal/above optimal 160-189 mg/dL, Borderline high 190-219 mg/dL, High >219 mg/dL, Very high Secondary prevention optimal non HDL Cholesterol levels are recommended to be <100 mg/dL Performed By: #### 2 4323-8, 6-3 #### [facility] CLIA [id number] [address] #### 98181-2 #### [facility] CLIA [id number] [address] CLIA [id number] [address] [place] [address] Cholesterol.total/Shanon sterol in HDL [Mass ratio] 3.85 {ratio} Normal <5.10 [facility] Comment on above: Order Comment: Speci men Type: BLOOD SPECIMEN Ordering Facility: [facility] Address: [address] [place] [address] Performed By: #### 2 4323-8, 3015-3 #### [facility] CLIA [id number] [address] #### 75034-1 #### [facility] CLIA [id number] [address] CLIA [id number] [place] [address] FASTING TIME 12 hrs Normal [facility] Comment on above: Order Comment: Speci men Type: BLOOD SPECIMEN Ordering Facility: [facility] Address: [address] [place] [address] Performed By: #### 2 4323-8, 6-3 #### [facility] CLIA [id number] [address] #### 94257-3 #### [facility] CLIA [id number] [address] OF [facility] CLIA [id number] [address] [place] [address] [place] Triglyceride [Mass/Vol] 226 mg/dL High <150 [facility] Comment on above: Order Comment: Speci men Type: BLOOD SPECIMEN Ordering Facility: [facility] Address: [address] [facility], [place] [address] Result Comment: <150 mg/dL, Normal 150-199 mg/dL, Borderline high 200-499 mg/dL, High >499 mg/dL, Very high Performed By: #### 2 4323-8, 3016-3 #### [facility] CLIA [id number] [address] #### 57552-4 #### [facility] CLIA [id number] [address] CLIA [id number] [address] [place] [address] [place] TSH SerPl-aCncon 10-10-2024 TSH Qn 1.060 m[IU]/L Normal 0.270-4.20 0 [facility] Comment on above: Order Comment: Speci men Type: BLOOD SPECIMEN Ordering Facility: [facility] Address: [address] [facility], [place] [address] Performed By: #### 2 4323-8, 3016-3 #### [facility] CLIA [id number] [address] #### 38736-0 #### [facility] CLIA [id number] [address] CLIA [id number] [address] [place] [address] Absolute lymphocyte countOrd ered By: Dr. Zarate on 01-03-2023 Lymphocytes Auto (Unsp spec) [#/Vol] 5.11 10*3/uL 0.83-4.51 [facility] Basophil percentageOrdered B y: Dr. Zarate on 01-03-2023 Basophils/100 WBC (Bld) 0.6 % 0-1 [facility] Chloride [Moles/Vol] 97 mmol/L 98-107 [facility] Eosinophils/100 WBC (Bld) 3.2 % 0-5 [facility] Glucose [Mass/Vol] 504 mg/dL 74-106 [facility] Comment on above: Glucose result great er than or equal to 200 mg/dLsuggests DIABETES MELLITUS per A.D.A. criteria. Neutrophils (Bld) [#/Vol] 5.5 10*3/uL 2.0-7.7 [facility] Neutrophils/100 WBC (Bld) 45.8 % 47-70 [facility] Potassium [Moles/Vol] 4.7 mmol/L 3.5-5.1 [facility] Sodium [Moles/Vol] 132 mmol/L 136-145 [facility] WBC (Bld) [#/Vol] 12.1 10*3/uL 4.4-11.0 [facility] Blood erythrocytes count (nu mber/volume)Ordered By: Dr. Zarate on 01-03-2023 RBC (Bld) [#/Vol] 4.87 10*6/uL 4.6-6.2 [facility] Blood hemoglobin measurement (mass/volume)Ordered By: Dr. Zarate on 01-03-2023 Hemoglobin (Bld) [Mass/Vol] 12.7 g/dL 13.0-16.5 [facility] Blood lymphocytes/100 leukoc ytesOrdered By: Dr. Zarate on 01-03-2023 Lymphocytes/100 WBC (Bld) 42.3 % 19-41 [facility] Blood manual differential co mment interpretation (narrative result)Ordered By: Dr. Zarate on 01-03-2023 Manual differential comment Gigi (Bld) [Interp] SCANNED [facility] Comment on above: LYMPHOCYTOSIS NOTED Blood monocytes/100 leukocyt esOrdered By: [address] Zarate on 01-03-2023 Monocytes/100 WBC (Bld) 7.8 % 0-10 [facility] Blood platelet mean volumeOr dered By: Dr. Zarate on 01-03-2023 Platelet mean volume (Bld) [Entitic vol] 10.6 fL 6.2-12.0 [facility] Determination of erythrocyte mean corpuscular volume (MCV)Ordered By: Dr. Zarate on 01-03-2023 MCV (RBC) [Entitic vol] 81.9 fL 80-94 [facility] Glucose Glucometer (BldC) [M ass/Vol]Ordered By: Dr. Zarate on 01-03-2023 Glucose [Mass/Vol] 383 mg/dL 74-106 [facility] Comment on above: MANAGEMENT OF PATIEN T CARE PER NURSING PROTOCOL Hematocrit Auto (Bld) [Volum e fraction]Ordered By: Dr. Zarate on 01-03-2023 Hematocrit (Bld) [Volume fraction] 39.9 % 40-54 [facility] - Chemistry and C hemistry - challengeOrdered By: Dr. Zarate on 01-03-2023 CO2 [Moles/Vol] 23.0 mmol/L 21.0-32.0 [facility] Urea nitrogen/Creatinine [Mass ratio] 17.2 mg/mg 10-20 [facility] - Hematology and Cell countsOrdered By: Dr. Zarate on 01-03-2023 Erythrocyte distribution width (RBC) [Entitic vol] 41.9 fL 35.1-43.9 [facility] Erythrocyte distribution width (RBC) [Ratio] 14.3 % 11.6-14.6 [facility] Immature granulocytes/100 WBC (Bld) 0.300 % 0.0-0.9 [facility] Comment on above: IG% - Immature Granu locytes (promyelocytes, myelocytes and metamyelocytes) > 1% indicates that a LEFT SHIFT is Present. MCH (RBC) [Entitic mass] 26.1 pg 27.0-32.0 [facility] Nucleated RBC/100 WBC (Bld) [Ratio] 0 % 0-5 [facility] MCHC Auto (RBC) [Mass/Vol]Or dered By: Dr. Zarate on 01-03-2023 MCHC (RBC) [Mass/Vol] 31.8 g/dL 32-36 [facility] No Panel InformationOrdered By: Dr. Zarate on 01-03-2023 Estimated Creatinine Clearance Calc 122.45 ml/min [facility] Estimated GFR (MDRD) Amer 136 mL/min >60 [facility] Comment on above: GFR Calc Estimated GFR (MDRD) Non-Af Amer 113 mL/min >60 [facility] Comment on above: Non- GFR Calc Troponin I High Sensitivity 4 pg/mL 3.0-78.0 [facility] Comment on above: Critical Result(s) C alled at: 23:19:17 01/03/2023 by: MICHAEL COUGHLIN RN (ED) Results read back by same. Please Note: New Test Units and Gender Specific Reference Ranges. For more information see Policy Stat Procedure [place] High Sensitivity Troponin (TNIH) and attachments. Platelets bldOrdered By: Dr. Zarate on 01-03-2023 Platelets (Bld) [#/Vol] 357 10*3/uL 150-450 [facility] Serum or plasma calcium koby urement (mass/volume)Ordered By: Dr. Zarate on 01-03-2023 Calcium [Mass/Vol] 8.6 mg/dL 8.5-10.1 [facility] Serum or plasma creatinine m easurement (mass/volume)Ordered By: Dr. Zarate on 01-03-2023 Creatinine [Mass/Vol] 0.87 mg/dL 0.70-1.30 [facility] Comment on above: The validity of the calculated GFR & GFRAA in patients over 70 years has not been determined. Clinical correlation is essential. Serum or plasma urea nitroge n measurement (mass/volume)Ordered By: Dr. Zarate on 01-03-2023 Urea nitrogen [Mass/Vol] 15 mg/dL 7-18 [facility] Thin prep Papanicolaou smear with manual screeningOrdered By: Dr. Zarate on 01-03-2023 Thin prep Papanicolaou smear with manual screening 12 5-15 [facility] Absolute lymphocyte countOrd ered By: Dr. Lynn on 12-09-2022 Lymphocytes Auto (Unsp spec) [#/Vol] 4.06 10*3/uL 0.83-4.51 [facility] Basophil percentageOrdered B y: Dr. Lynn on 12-09-2022 Basophils/100 WBC (Bld) 0.6 % 0-1 [facility] Chloride [Moles/Vol] 96 mmol/L 98-107 [facility] Eosinophils/100 WBC (Bld) 1.9 % 0-5 [facility] Glucose [Mass/Vol] 396 mg/dL 74-106 [facility] Comment on above: Glucose result great er than or equal to 200 mg/dLsuggests DIABETES MELLITUS per A.D.A. criteria. Neutrophils (Bld) [#/Vol] 4.6 10*3/uL 2.0-7.7 [facility] Neutrophils/100 WBC (Bld) 47.9 % 47-70 [facility] Potassium [Moles/Vol] 5.0 mmol/L 3.5-5.1 [facility] Sodium [Moles/Vol] 133 mmol/L 136-145 [facility] WBC (Bld) [#/Vol] 9.6 10*3/uL 4.4-11.0 [facility] Blood erythrocytes count (nu mber/volume)Ordered By: Dr. Lynn on 12-09-2022 RBC (Bld) [#/Vol] 6.66 10*6/uL 4.6-6.2 [facility] Blood hemoglobin measurement (mass/volume)Ordered By: Dr. Lynn on 12-09-2022 Hemoglobin (Bld) [Mass/Vol] 17.0 g/dL 13.0-16.5 [facility] Blood lymphocytes/100 leukoc ytesOrdered By: Dr. Lynn on 12-09-2022 Lymphocytes/100 WBC (Bld) 42.1 % 19-41 [facility] Blood monocytes/100 leukocyt esOrdered By: Dr. Lynn on 12-09-2022 Monocytes/100 WBC (Bld) 7.3 % 0-10 [facility] Blood platelet mean volumeOr dered By: Dr. Lynn on 12-09-2022 Platelet mean volume (Bld) [Entitic vol] 10.8 fL 6.2-12.0 [facility] Determination of erythrocyte mean corpuscular volume (MCV)Ordered By: Dr. Lynn on 12-09-2022 MCV (RBC) [Entitic vol] 79.4 fL 80-94 [facility] HCO3 (BldA) [Moles/Vol]Order ed By: Dr. Lynn on 12-09-2022 HCO3 (Bld) [Moles/Vol] 21 mmol/L 22-26 [facility] Hematocrit Auto (Bld) [Volum e fraction]Ordered By: Dr. Lynn on 12-09-2022 Hematocrit (Bld) [Volume fraction] 52.9 % 40-54 [facility] - Chemistry and C hemistry - challengeOrdered By: Dr. Lynn on 12-09-2022 CO2 [Moles/Vol] 22 mmol/L 23-33 [facility] CO2 [Moles/Vol] 28.0 mmol/L 21.0-32.0 [facility] Natriuretic peptide B (Bld) [Mass/Vol] 2.7 pg/mL 0-100 [facility] Urea nitrogen/Creatinine [Mass ratio] 16.4 mg/mg 10-20 [facility] - Hematology and Cell countsOrdered By: Dr. Lynn on 12-09-2022 Erythrocyte distribution width (RBC) [Entitic vol] 38.5 fL 35.1-43.9 [facility] Erythrocyte distribution width (RBC) [Ratio] 13.4 % 11.6-14.6 [facility] Immature granulocytes/100 WBC (Bld) 0.200 % 0.0-0.9 [facility] Comment on above: IG% - Immature Granu locytes (promyelocytes, myelocytes and metamyelocytes) > 1% indicates that a LEFT SHIFT is Present. MCH (RBC) [Entitic mass] 25.5 pg 27.0-32.0 [facility] Nucleated RBC/100 WBC (Bld) [Ratio] 0 % 0-5 [facility] MCHC Auto (RBC) [Mass/Vol]Or dered By: Dr. Lynn on 12-09-2022 MCHC (RBC) [Mass/Vol] 32.1 g/dL 32-36 [facility] No Panel InformationOrdered By: Dr. Lynn on 12-09-2022 Bed Mix Venous Bld PCO2 at Pat Temp 32.1 mmHg 41-51 [facility] Blood Gas Specimen Type JAIDEN [facility] Venous Blood Base Excess -3 mmol/L -1.0-3.5 [facility] D-Dimer Quantitative (PE/DVT) < 0.27 FEU/ug/m 0.27-0.49 [facility] Comment on above: NORMAL D-Dimer level (<0.50) indicates no DVT or PE. Estimated Creatinine Clearance Calc 91.04 ml/min [facility] Estimated GFR (MDRD) Amer 104 mL/min >60 [facility] Comment on above: GFR Calc Estimated GFR (MDRD) Non-Af Amer 86 mL/min >60 [facility] Comment on above: Non- GFR Calc Troponin I High Sensitivity 4 pg/mL 3.0-78.0 [facility] Comment on above: Please Note: New Nayla t Units and Gender Specific Reference Ranges. For more information see Policy Stat Procedure [place] High Sensitivity Troponin (TNIH) and attachments. PO2 venousOrdered By: Dr. Marry baxter on 12-09-2022 Oxygen (BldV) [Partial pressure] 53 mm[Hg] 25-40 [facility] Platelets bldOrdered By: Dr. Lynn on 12-09-2022 Platelets (Bld) [#/Vol] 405 10*3/uL 150-450 [facility] Serum or plasma acetone koby urement (mass/volume)Ordered By: Dr. Lynn on 12-09-2022 Acetone [Mass/Vol] Negative NEG [facility] Serum or plasma calcium koby urement (mass/volume)Ordered By: Dr. Lynn on 12-09-2022 Calcium [Mass/Vol] 10.6 mg/dL 8.5-10.1 [facility] Serum or plasma creatinine m easurement (mass/volume)Ordered By: Dr. Lynn on 12-09-2022 Creatinine [Mass/Vol] 1.10 mg/dL 0.70-1.30 [facility] Comment on above: The validity of the calculated GFR & GFRAA in patients over 70 years has not been determined. Clinical correlation is essential. Serum or plasma urea nitroge n measurement (mass/volume)Ordered By: Dr. Lynn on 12-09-2022 Urea nitrogen [Mass/Vol] 18 mg/dL 7-18 [facility] Thin prep Papanicolaou smear with manual screeningOrdered By: Dr. Lynn on 12-09-2022 Thin prep Papanicolaou smear with manual screening 9 5-15 [facility] Vital signsOrdered By: Dr. Vicky coello on 12-09-2022 Oxygen saturation in Blood 88 % 50-70 [facility] pH measurementOrdered By: Dr Shin Lynn on 12-09-2022 pH (Unsp spec) 7.43 [pH] 7.32-7.42 [facility] Absolute lymphocyte countOrd ered By: ED PROVIDER on 12-03-2022 Lymphocytes Auto (Unsp spec) [#/Vol] 3.71 10*3/uL 0.83-4.51 [facility] Basophil percentageOrdered B y: ED PROVIDER on 12-03-2022 Basophils/100 WBC (Bld) 0.4 % 0-1 [facility] Eosinophils/100 WBC (Bld) 2.0 % 0-5 [facility] Neutrophils (Bld) [#/Vol] 8.6 10*3/uL 2.0-7.7 [facility] Neutrophils/100 WBC (Bld) 62.3 % 47-70 [facility] WBC (Bld) [#/Vol] 13.8 10*3/uL 4.4-11.0 [facility] Basophil percentageOrdered B y: Dr. Calvillo on 12-03-2022 Chloride [Moles/Vol] 105 mmol/L 98-107 [facility] Glucose [Mass/Vol] 64 mg/dL 74-106 [facility] Potassium [Moles/Vol] 3.6 mmol/L 3.5-5.1 [facility] Sodium [Moles/Vol] 138 mmol/L 136-145 [facility] Blood erythrocytes count (nu mber/volume)Ordered By: ED PROVIDER on 12-03-2022 RBC (Bld) [#/Vol] 5.14 10*6/uL 4.6-6.2 [facility] Blood hemoglobin measurement (mass/volume)Ordered By: ED PROVIDER on 12-03-2022 Hemoglobin (Bld) [Mass/Vol] 13.2 g/dL 13.0-16.5 [facility] Blood lymphocytes/100 leukoc ytesOrdered By: ED PROVIDER on 12-03-2022 Lymphocytes/100 WBC (Bld) 26.9 % 19-41 [facility] Blood monocytes/100 leukocyt esOrdered By: ED PROVIDER on 12-03-2022 Monocytes/100 WBC (Bld) 8.0 % 0-10 [facility] Blood platelet mean volumeOr dered By: ED PROVIDER on 12-03-2022 Platelet mean volume (Bld) [Entitic vol] 10.9 fL 6.2-12.0 [facility] Determination of erythrocyte mean corpuscular volume (MCV)Ordered By: ED PROVIDER on 12-03-2022 MCV (RBC) [Entitic vol] 84.0 fL 80-94 [facility] Hematocrit Auto (Bld) [Volum e fraction]Ordered By: ED PROVIDER on 12-03-2022 Hematocrit (Bld) [Volume fraction] 43.2 % 40-54 [facility] - Chemistry and C hemistry - challengeOrdered By: Dr. Calvillo on 12-03-2022 CO2 [Moles/Vol] 28.0 mmol/L 21.0-32.0 [facility] Urea nitrogen/Creatinine [Mass ratio] 16.6 mg/mg 10-20 [facility] - Hematology and Cell countsOrdered By: ED PROVIDER on 12-03-2022 Erythrocyte distribution width (RBC) [Entitic vol] 41.1 fL 35.1-43.9 [facility] Erythrocyte distribution width (RBC) [Ratio] 13.4 % 11.6-14.6 [facility] Immature granulocytes/100 WBC (Bld) 0.400 % 0.0-0.9 [facility] Comment on above: IG% - Immature Granu locytes (promyelocytes, myelocytes and metamyelocytes) > 1% indicates that a LEFT SHIFT is Present. MCH (RBC) [Entitic mass] 25.7 pg 27.0-32.0 [facility] Nucleated RBC/100 WBC (Bld) [Ratio] 0 % 0-5 [facility] MCHC Auto (RBC) [Mass/Vol]Or dered By: ED PROVIDER on 12-03-2022 MCHC (RBC) [Mass/Vol] 30.6 g/dL 32-36 [facility] No Panel InformationOrdered By: Dr. Calvillo on 12-03-2022 D-Dimer Quantitative (PE/DVT) 0.40 FEU/ug/m 0.27-0.49 [facility] Comment on above: NORMAL D-Dimer level (<0.50) indicates no DVT or PE. Estimated Creatinine Clearance Calc 159.00 ml/min [facility] Estimated GFR (MDRD) Amer 187 mL/min >60 [facility] Comment on above: GFR Calc Estimated GFR (MDRD) Non-Af Amer 155 mL/min >60 [facility] Comment on above: Non- GFR Calc Troponin I High Sensitivity 3 pg/mL 3.0-78.0 [facility] Comment on above: Please Note: New Nayla t Units and Gender Specific Reference Ranges. For more information see Policy Stat Procedure [place] High Sensitivity Troponin (TNIH) and attachments. Platelets bldOrdered By: ED PROVIDER on 12-03-2022 Platelets (Bld) [#/Vol] 348 10*3/uL 150-450 [facility] Serum or plasma calcium koby urement (mass/volume)Ordered By: Dr. Calvillo on 12-03-2022 Calcium [Mass/Vol] 8.9 mg/dL 8.5-10.1 [facility] Serum or plasma creatinine m easurement (mass/volume)Ordered By: Dr. Calvillo on 12-03-2022 Creatinine [Mass/Vol] 0.66 mg/dL 0.70-1.30 [facility] Comment on above: The validity of the calculated GFR & GFRAA in patients over 70 years has not been determined. Clinical correlation is essential. Serum or plasma urea nitroge n measurement (mass/volume)Ordered By: Dr. Calvillo on 12-03-2022 Urea nitrogen [Mass/Vol] 11 mg/dL 7-18 [facility] Thin prep Papanicolaou smear with manual screeningOrdered By: Dr. Calvillo on 12-03-2022 Thin prep Papanicolaou smear with manual screening 5 5-15 [facility] Absolute lymphocyte countOrd ered By: ED PROVIDER on 11-17-2022 Lymphocytes Auto (Unsp spec) [#/Vol] 4.55 10*3/uL 0.83-4.51 [facility] Basophil percentageOrdered B y: ED PROVIDER on 11-17-2022 Basophils/100 WBC (Bld) 0.5 % 0-1 [facility] Chloride [Moles/Vol] 103 mmol/L 98-107 [facility] Eosinophils/100 WBC (Bld) 2.8 % 0-5 [facility] Glucose [Mass/Vol] 278 mg/dL 74-106 [facility] Comment on above: Glucose result great er than or equal to 200 mg/dLsuggests DIABETES MELLITUS per A.D.A. criteria. Neutrophils (Bld) [#/Vol] 5.8 10*3/uL 2.0-7.7 [facility] Neutrophils/100 WBC (Bld) 49.8 % 47-70 [facility] Potassium [Moles/Vol] 3.8 mmol/L 3.5-5.1 [facility] Sodium [Moles/Vol] 134 mmol/L 136-145 [facility] WBC (Bld) [#/Vol] 11.7 10*3/uL 4.4-11.0 [facility] Blood erythrocytes count (nu mber/volume)Ordered By: ED PROVIDER on 11-17-2022 RBC (Bld) [#/Vol] 5.10 10*6/uL 4.6-6.2 [facility] Blood hemoglobin measurement (mass/volume)Ordered By: ED PROVIDER on 11-17-2022 Hemoglobin (Bld) [Mass/Vol] 13.3 g/dL 13.0-16.5 [facility] Blood lymphocytes/100 leukoc ytesOrdered By: ED PROVIDER on 11-17-2022 Lymphocytes/100 WBC (Bld) 38.9 % 19-41 [facility] Blood monocytes/100 leukocyt esOrdered By: ED PROVIDER on 11-17-2022 Monocytes/100 WBC (Bld) 7.7 % 0-10 [facility] Blood platelet mean volumeOr dered By: ED PROVIDER on 11-17-2022 Platelet mean volume (Bld) [Entitic vol] 10.9 fL 6.2-12.0 [facility] Determination of erythrocyte mean corpuscular volume (MCV)Ordered By: ED PROVIDER on 11-17-2022 MCV (RBC) [Entitic vol] 80.6 fL 80-94 [facility] Hematocrit Auto (Bld) [Volum e fraction]Ordered By: ED PROVIDER on 11-17-2022 Hematocrit (Bld) [Volume fraction] 41.1 % 40-54 [facility] Laboratory - Chemistry and C hemistry - challengeOrdered By: ED PROVIDER on 11-17-2022 CO2 [Moles/Vol] 26.0 mmol/L 21.0-32.0 [facility] Urea nitrogen/Creatinine [Mass ratio] 17.0 mg/mg 10-20 [facility] - Hematology and Cell countsOrdered By: ED PROVIDER on 11-17-2022 Erythrocyte distribution width (RBC) [Entitic vol] 37.6 fL 35.1-43.9 [facility] Erythrocyte distribution width (RBC) [Ratio] 12.8 % 11.6-14.6 [facility] Immature granulocytes/100 WBC (Bld) 0.300 % 0.0-0.9 [facility] Comment on above: IG% - Immature Granu locytes (promyelocytes, myelocytes and metamyelocytes) > 1% indicates that a LEFT SHIFT is Present. MCH (RBC) [Entitic mass] 26.1 pg 27.0-32.0 [facility] Nucleated RBC/100 WBC (Bld) [Ratio] 0 % 0-5 [facility] MCHC Auto (RBC) [Mass/Vol]Or dered By: ED PROVIDER on 11-17-2022 MCHC (RBC) [Mass/Vol] 32.4 g/dL 32-36 [facility] No Panel InformationOrdered By: ED PROVIDER on 11-17-2022 Estimated Creatinine Clearance Calc 127.57 ml/min [facility] Estimated GFR (MDRD) Amer 159 mL/min >60 [facility] Comment on above: GFR Calc Estimated GFR (MDRD) Non-Af Amer 131 mL/min >60 [facility] Comment on above: Non- GFR Calc Troponin I High Sensitivity < 3 pg/mL 3.0-78.0 [facility] Comment on above: Please Note: New Nayla t Units and Gender Specific Reference Ranges. For more information see Policy Stat Procedure [place] High Sensitivity Troponin (TNIH) and attachments. Platelets bldOrdered By: ED PROVIDER on 11-17-2022 Platelets (Bld) [#/Vol] 304 10*3/uL 150-450 [facility] Serum or plasma calcium koby urement (mass/volume)Ordered By: ED PROVIDER on 11-17-2022 Calcium [Mass/Vol] 9.1 mg/dL 8.5-10.1 [facility] Serum or plasma creatinine m easurement (mass/volume)Ordered By: ED PROVIDER on 11-17-2022 Creatinine [Mass/Vol] 0.76 mg/dL 0.70-1.30 [facility] Comment on above: The validity of the calculated GFR & GFRAA in patients over 70 years has not been determined. Clinical correlation is essential. Serum or plasma urea nitroge n measurement (mass/volume)Ordered By: ED PROVIDER on 11-17-2022 Urea nitrogen [Mass/Vol] 13 mg/dL 7-18 [facility] Thin prep Papanicolaou smear with manual screeningOrdered By: ED PROVIDER on 11-17-2022 Thin prep Papanicolaou smear with manual screening 5 5-15 [facility] Absolute lymphocyte countOrd ered By: Dr. Palomino on 10-13-2022 Lymphocytes Auto (Unsp spec) [#/Vol] 3.87 10*3/uL 0.83-4.51 [facility] Basophil percentageOrdered B y: Dr. Palomino on 10-13-2022 Basophils/100 WBC (Bld) 0.8 % 0-1 [facility] Chloride [Moles/Vol] 105 mmol/L 98-107 [facility] Eosinophils/100 WBC (Bld) 4.3 % 0-5 [facility] Glucose [Mass/Vol] 243 mg/dL 74-106 [facility] Comment on above: Glucose result great er than or equal to 200 mg/dLsuggests DIABETES MELLITUS per A.D.A. criteria. Neutrophils (Bld) [#/Vol] 3.8 10*3/uL 2.0-7.7 [facility] Neutrophils/100 WBC (Bld) 43.5 % 47-70 [facility] Potassium [Moles/Vol] 3.4 mmol/L 3.5-5.1 [facility] Sodium [Moles/Vol] 140 mmol/L 136-145 [facility] WBC (Bld) [#/Vol] 8.8 10*3/uL 4.4-11.0 [facility] Blood erythrocytes count (nu mber/volume)Ordered By: Dr. Palomino on 10-13-2022 RBC (Bld) [#/Vol] 5.14 10*6/uL 4.6-6.2 [facility] Blood hemoglobin measurement (mass/volume)Ordered By: Dr. Palomino on 10-13-2022 Hemoglobin (Bld) [Mass/Vol] 13.3 g/dL 13.0-16.5 [facility] Blood lymphocytes/100 leukoc ytesOrdered By: Dr. Palomino on 10-13-2022 Lymphocytes/100 WBC (Bld) 44.1 % 19-41 [facility] Blood monocytes/100 leukocyt esOrdered By: Dr. Palomino on 10-13-2022 Monocytes/100 WBC (Bld) 7.2 % 0-10 [facility] Blood platelet mean volumeOr dered By: Dr. Palomino on 10-13-2022 Platelet mean volume (Bld) [Entitic vol] 10.4 fL 6.2-12.0 [facility] Determination of erythrocyte mean corpuscular volume (MCV)Ordered By: Dr. Palomino on 10-13-2022 MCV (RBC) [Entitic vol] 83.7 fL 80-94 [facility] Hematocrit Auto (Bld) [Volum e fraction]Ordered By: Dr. Palomino on 10-13-2022 Hematocrit (Bld) [Volume fraction] 43.0 % 40-54 [facility] Laboratory - Chemistry and C hemistry - challengeOrdered By: Dr. Palomino on 10-13-2022 CO2 [Moles/Vol] 27.0 mmol/L 21.0-32.0 [facility] Urea nitrogen/Creatinine [Mass ratio] 13.8 mg/mg 10-20 [facility] Laboratory - Hematology and Cell countsOrdered By: Dr. Palomino on 10-13-2022 Erythrocyte distribution width (RBC) [Entitic vol] 41.9 fL 35.1-43.9 [facility] Erythrocyte distribution width (RBC) [Ratio] 13.6 % 11.6-14.6 [facility] Immature granulocytes/100 WBC (Bld) 0.100 % 0.0-0.9 [facility] Comment on above: IG% - Immature Granu locytes (promyelocytes, myelocytes and metamyelocytes) > 1% indicates that a LEFT SHIFT is Present. MCH (RBC) [Entitic mass] 25.9 pg 27.0-32.0 [facility] Nucleated RBC/100 WBC (Bld) [Ratio] 0 % 0-5 [facility] MCHC Auto (RBC) [Mass/Vol]Or dered By: Dr. Palomino on 10-13-2022 MCHC (RBC) [Mass/Vol] 30.9 g/dL 32-36 [facility] No Panel InformationOrdered By: Dr. Palomino on 10-13-2022 Estimated Creatinine Clearance Calc 131.33 ml/min [facility] Estimated GFR (MDRD) Amer 169 mL/min >60 [facility] Comment on above: GFR Calc Estimated GFR (MDRD) Non-Af Amer 140 mL/min >60 [facility] Comment on above: Non- GFR Calc Troponin I High Sensitivity 4 pg/mL 3.0-78.0 [facility] Comment on above: Please Note: New Nayla t Units and Gender Specific Reference Ranges. For more information see Policy Stat Procedure [place] High Sensitivity Troponin (TNIH) and attachments. Platelets bldOrdered By: Dr. Palomino on 10-13-2022 Platelets (Bld) [#/Vol] 309 10*3/uL 150-450 [facility] Serum or plasma calcium koby urement (mass/volume)Ordered By: Dr. Palomino on 10-13-2022 Calcium [Mass/Vol] 8.8 mg/dL 8.5-10.1 [facility] Serum or plasma creatinine m easurement (mass/volume)Ordered By: Dr. Palomino on 10-13-2022 Creatinine [Mass/Vol] 0.72 mg/dL 0.70-1.30 [facility] Comment on above: The validity of the calculated GFR & GFRAA in patients over 70 years has not been determined. Clinical correlation is essential. Serum or plasma urea nitroge n measurement (mass/volume)Ordered By: Dr. Palomino on 10-13-2022 Urea nitrogen [Mass/Vol] 10 mg/dL 7-18 [facility] Thin prep Papanicolaou smear with manual screeningOrdered By: Dr. Palomino on 10-13-2022 Thin prep Papanicolaou smear with manual screening 8 5-15 [facility] Absolute lymphocyte countOrd ered By: Dr. Reed on 08-24-2022 Lymphocytes Auto (Unsp spec) [#/Vol] 5.98 10*3/uL 0.83-4.51 [facility] Basophil percentageOrdered B y: Dr. Reed on 08-24-2022 Basophils/100 WBC (Bld) 0.3 % 0-1 [facility] Chloride [Moles/Vol] 103 mmol/L 98-107 [facility] Eosinophils/100 WBC (Bld) 5.5 % 0-5 [facility] Glucose [Mass/Vol] 52 mg/dL 74-106 [facility] Neutrophils (Bld) [#/Vol] 3.8 10*3/uL 2.0-7.7 [facility] Neutrophils/100 WBC (Bld) 30.5 % 47-70 [facility] Potassium [Moles/Vol] 3.0 mmol/L 3.5-5.1 [facility] Sodium [Moles/Vol] 142 mmol/L 136-145 [facility] WBC (Bld) [#/Vol] 12.6 10*3/uL 4.4-11.0 [facility] Blood erythrocytes count (nu mber/volume)Ordered By: Dr. Reed on 08-24-2022 RBC (Bld) [#/Vol] 5.40 10*6/uL 4.6-6.2 [facility] Blood hemoglobin measurement (mass/volume)Ordered By: Dr. Reed on 08-24-2022 Hemoglobin (Bld) [Mass/Vol] 14.0 g/dL 13.0-16.5 [facility] Blood lymphocytes/100 leukoc ytesOrdered By: Dr. Reed on 08-24-2022 Lymphocytes/100 WBC (Bld) 47.4 % 19-41 [facility] Blood manual differential co mment interpretation (narrative result)Ordered By: Dr. Reed on 08-24-2022 Manual differential comment Gigi (Bld) [Interp] SCANNED [facility] Blood monocytes/100 leukocyt esOrdered By: Dr. Reed on 08-24-2022 Monocytes/100 WBC (Bld) 16.0 % 0-10 [facility] Blood platelet mean volumeOr dered By: Dr. Reed on 08-24-2022 Platelet mean volume (Bld) [Entitic vol] 10.5 fL 6.2-12.0 [facility] Determination of erythrocyte mean corpuscular volume (MCV)Ordered By: Dr. Reed on 08-24-2022 MCV (RBC) [Entitic vol] 81.5 fL 80-94 [facility] Hematocrit Auto (Bld) [Volum e fraction]Ordered By: Dr. Reed on 08-24-2022 Hematocrit (Bld) [Volume fraction] 44.0 % 40-54 [facility] Laboratory - Chemistry and C hemistry - challengeOrdered By: Dr. Reed on 08-24-2022 CO2 [Moles/Vol] 32.0 mmol/L 21.0-32.0 [facility] Urea nitrogen/Creatinine [Mass ratio] 16.8 mg/mg 10-20 [facility] - Hematology and Cell countsOrdered By: Dr. Reed on 08-24-2022 Erythrocyte distribution width (RBC) [Entitic vol] 40.7 fL 35.1-43.9 [facility] Erythrocyte distribution width (RBC) [Ratio] 14.0 % 11.6-14.6 [facility] Immature granulocytes/100 WBC (Bld) 0.300 % 0.0-0.9 [facility] Comment on above: IG% - Immature Granu locytes (promyelocytes, myelocytes and metamyelocytes) > 1% indicates that a LEFT SHIFT is Present. MCH (RBC) [Entitic mass] 25.9 pg 27.0-32.0 [facility] Nucleated RBC/100 WBC (Bld) [Ratio] 0 % 0-5 [facility] MCHC Auto (RBC) [Mass/Vol]Or dered By: Dr. Reed on 08-24-2022 MCHC (RBC) [Mass/Vol] 31.8 g/dL 32-36 [facility] Comment on above: Delta: 33.6 on 08/20 No Panel InformationOrdered By: Dr. Reed on 08-24-2022 Estimated Creatinine Clearance Calc 143.27 ml/min [facility] Estimated GFR (MDRD) Amer 190 mL/min >60 [facility] Comment on above: GFR Calc Estimated GFR (MDRD) Non-Af Amer 157 mL/min >60 [facility] Comment on above: Non- GFR Calc Reactive Lymphocytes 1+ [facility] Platelets bldOrdered By: Dr. Reed on 08-24-2022 Platelets (Bld) [#/Vol] 492 10*3/uL 150-450 [facility] Review by pathologistOrdered By: Dr. Reed on 08-24-2022 Pathologist review Gigi (Unsp spec) [Interp] December bowen [facility] Pathologist review Gigi (Unsp spec) [Interp] Reviewed [facility] Comment on above: Previous reported re sult: Louisa wiseman Edited by: RGOOD on 08/26/22:0938Leukocytosis. Thrombocytosis.Clinical correlation necessary.Herson Olivas M.D. 08/26/22 AMENDED REPORT 08/26/22 0938 PATH REV previously reported as: Louisa wiseman Serum or plasma calcium koby urement (mass/volume)Ordered By: Dr. Reed on 08-24-2022 Calcium [Mass/Vol] 9.4 mg/dL 8.5-10.1 [facility] Serum or plasma creatinine m easurement (mass/volume)Ordered By: Dr. Reed on 08-24-2022 Creatinine [Mass/Vol] 0.66 mg/dL 0.70-1.30 [facility] Comment on above: The validity of the calculated GFR & GFRAA in patients over 70 years has not been determined. Clinical correlation is essential. Serum or plasma urea nitroge n measurement (mass/volume)Ordered By: Dr. Reed on 08-24-2022 Urea nitrogen [Mass/Vol] 11 mg/dL 7-18 [facility] Thin prep Papanicolaou smear with manual screeningOrdered By: Dr. Reed on 08-24-2022 Thin prep Papanicolaou smear with manual screening 7 5-15 [facility] Absolute lymphocyte countOrd ered By: Dr. Cruz on 08-20-2022 Lymphocytes Auto (Unsp spec) [#/Vol] 3.61 10*3/uL 0.83-4.51 [facility] Basophil percentageOrdered B y: Dr. Cruz on 08-20-2022 Basophils/100 WBC (Bld) 0.2 % 0-1 [facility] Chloride [Moles/Vol] 104 mmol/L 98-107 [facility] Eosinophils/100 WBC (Bld) 0.2 % 0-5 [facility] Glucose [Mass/Vol] 162 mg/dL 74-106 [facility] Comment on above: Fasting Glucose resu lt greater than or equal to 126 mg/dL suggests DIABETES MELLITUS per A.D.A. criteria. Neutrophils (Bld) [#/Vol] 7.8 10*3/uL 2.0-7.7 [facility] Neutrophils/100 WBC (Bld) 60.1 % 47-70 [facility] Potassium [Moles/Vol] 3.0 mmol/L 3.5-5.1 [facility] Sodium [Moles/Vol] 141 mmol/L 136-145 [facility] WBC (Bld) [#/Vol] 13.0 10*3/uL 4.4-11.0 [facility] Blood erythrocytes count (nu mber/volume)Ordered By: Dr. Cruz on 08-20-2022 RBC (Bld) [#/Vol] 4.34 10*6/uL 4.6-6.2 [facility] Blood hemoglobin measurement (mass/volume)Ordered By: Dr. Cruz on 08-20-2022 Hemoglobin (Bld) [Mass/Vol] 11.7 g/dL 13.0-16.5 [facility] Blood lymphocytes/100 leukoc ytesOrdered By: Dr. Cruz on 08-20-2022 Lymphocytes/100 WBC (Bld) 27.7 % 19-41 [facility] Blood monocytes/100 leukocyt esOrdered By: Dr. Cruz on 08-20-2022 Monocytes/100 WBC (Bld) 11.4 % 0-10 [facility] Blood platelet mean volumeOr dered By: Dr. Cruz on 08-20-2022 Platelet mean volume (Bld) [Entitic vol] 10.1 fL 6.2-12.0 [facility] Determination of erythrocyte mean corpuscular volume (MCV)Ordered By: Dr. Cruz on 08-20-2022 MCV (RBC) [Entitic vol] 80.2 fL 80-94 [facility] Glucose Glucometer (BldC) [M ass/Vol]Ordered By: Dr. Cruz on 08-20-2022 Glucose [Mass/Vol] 120 mg/dL 74-106 [facility] Comment on above: MANAGEMENT OF PATIEN T CARE PER NURSING PROTOCOL Hematocrit Auto (Bld) [Volum e fraction]Ordered By: Dr. Cruz on 08-20-2022 Hematocrit (Bld) [Volume fraction] 34.8 % 40-54 [facility] Laboratory - Chemistry and C hemistry - challengeOrdered By: Dr. Cruz on 08-20-2022 CO2 [Moles/Vol] 31.0 mmol/L 21.0-32.0 [facility] Urea nitrogen/Creatinine [Mass ratio] 18.1 mg/mg 10-20 [facility] Laboratory - Hematology and Cell countsOrdered By: Dr. Cruz on 08-20-2022 Erythrocyte distribution width (RBC) [Entitic vol] 42.3 fL 35.1-43.9 [facility] Erythrocyte distribution width (RBC) [Ratio] 14.5 % 11.6-14.6 [facility] Immature granulocytes/100 WBC (Bld) 0.400 % 0.0-0.9 [facility] Comment on above: IG% - Immature Granu locytes (promyelocytes, myelocytes and metamyelocytes) > 1% indicates that a LEFT SHIFT is Present. MCH (RBC) [Entitic mass] 27.0 pg 27.0-32.0 [facility] Nucleated RBC/100 WBC (Bld) [Ratio] 0 % 0-5 [facility] MCHC Auto (RBC) [Mass/Vol]Or dered By: Dr. Cruz on 08-20-2022 MCHC (RBC) [Mass/Vol] 33.6 g/dL 32-36 [facility] No Panel InformationOrdered By: Dr. Cruz on 08-20-2022 Estimated Creatinine Clearance Calc 189.05 ml/min [facility] Estimated GFR (MDRD) Amer 232 mL/min >60 [facility] Comment on above: GFR Calc Estimated GFR (MDRD) Non-Af Amer 191 mL/min >60 [facility] Comment on above: Non- GFR Calc Platelets bldOrdered By: Dr. Cruz on 08-20-2022 Platelets (Bld) [#/Vol] 254 10*3/uL 150-450 [facility] Serum or plasma calcium koby urement (mass/volume)Ordered By: Dr. Cruz on 08-20-2022 Calcium [Mass/Vol] 8.0 mg/dL 8.5-10.1 [facility] Serum or plasma creatinine m easurement (mass/volume)Ordered By: Dr. Cruz on 08-20-2022 Creatinine [Mass/Vol] 0.55 mg/dL 0.70-1.30 [facility] Comment on above: The validity of the calculated GFR & GFRAA in patients over 70 years has not been determined. Clinical correlation is essential. Serum or plasma urea nitroge n measurement (mass/volume)Ordered By: Dr. Cruz on 08-20-2022 Urea nitrogen [Mass/Vol] 10 mg/dL 7-18 [facility] Thin prep Papanicolaou smear with manual screeningOrdered By: Dr. Cruz on 08-20-2022 Thin prep Papanicolaou smear with manual screening 6 5-15 [facility] Throat Streptococcus pyogene s antigen detection by immunofluorescenceOrdered By: Dr. Cruz on 08-20-2022 S. pyogenes Ag IF Ql (Throat) [facility] Review by pathologistOrdered By: Dr. Cruz on 08-19-2022 Pathologist review Gigi (Unsp spec) [Interp] Reviewed [facility] Comment on above: Previous reported re sult: Louisa wiseman Edited by: RGOOD on 08/20/22:0931Neutrophilic leukocytosis.Clinical correlation necessary.Herson Olivas M.D. 08/20/22 AMENDED REPORT 08/20/22 0931 PATH REV previously reported as: Loiusa wiseman Basophil percentageOrdered B y: Dr. Handy on 08-18-2022 Lactate [Moles/Vol] 1.2 mmol/L 0.4-2.0 [facility] Basophil percentage 7.9 mg/dL 2.5-4.9 [facility] Basophil percentageOrdered B y: Dr. Cruz on 08-18-2022 Basophil percentage 0 SEEN /hpf 0-5 [facility] Bilirubin [Mass/Vol] 0.70 mg/dL 0.20-1.00 [facility] Comment on above: For patients on eltr ombopag therapy, use of Dimension [place] TBIL is not recommended. Protein [Mass/Vol] 7.2 g/dL 6.4-8.2 [facility] Bilirubin Test strip Ql (U)O rdered By: Dr. Cruz on 08-18-2022 Bilirubin Ql (U) Negative Negative [facility] Blood manual differential co mment interpretation (narrative result)Ordered By: Dr. Handy on 08-18-2022 Manual differential comment Gigi (Bld) [Interp] SCANNED [facility] Direct bilirubinOrdered By: Dr. Cruz on 08-18-2022 Bilirubin.direct [Mass/Vol] 0.13 mg/dL 0.00-0.30 [facility] HCO3 (BldA) [Moles/Vol]Order ed By: Dr. Cruz on 08-18-2022 HCO3 (Bld) [Moles/Vol] 4 mmol/L 22-26 [facility] Ketones Test strip Ql (U)Ord ered By: Dr. Cruz on 08-18-2022 Ketones Ql (U) 150 mg/dl Negative [facility] Comment on above: CRITICAL VALUE *HCRI TICAL VALUE VERIFIED. CALLED TO JOSE CARLOS ROGERS (ICU)08/18/22 1516 Walt Hoff.RESULTS READ BACK BY SAME. Laboratory - Chemistry and C hemistry - challengeOrdered By: Dr. Cruz on 08-18-2022 ALP [Catalytic activity/Vol] 178 U/L 45-117 [facility] ALT [Catalytic activity/Vol] 18 U/L 16-61 [facility] Globulin (S) [Mass/Vol] 4.0 g/dL 2.2-4.2 [facility] Laboratory - Chemistry and C hemistry - challengeOrdered By: Dr. Handy on 08-18-2022 Lipase [Catalytic activity/Vol] 34 U/L 73-393 [facility] Magnesium [Mass/Vol] 3.2 mg/dL 1.6-2.6 [facility] Laboratory - Microbiology an d Antimicrobial susceptibilityOrdered By: Dr. Cruz on 08-18-2022 SARS-CoV-2 (COVID-19) RNA LM+probe Ql (Unsp spec) Not detected Not Detect [facility] Comment on above: Normal Reference Ran [...] and RNA 12b panel LM+probe (Unsp spec) [facility] Mucus LM Ql (Urine sed)Order ed By: Dr. Cruz on 08-18-2022 Mucus Ql (Urine sed) 0 SEEN /hpf [facility] Nitrite Test strip Ql (U)Ord ered By: Dr. Cruz on 08-18-2022 Nitrite Ql (U) Negative Negative [facility] No Panel InformationOrdered By: Dr. Cruz on 08-18-2022 Bed Mix Venous Bld PCO2 at Pat Temp 13.9 mmHg 41-51 [facility] Bld Gas Crit Called To/Read Back By Yes [facility] Blood Gas Notified Time 10:17:05 [facility] Blood Gas Notified Whom rozina [facility] Blood Gas Specimen Type JAIDEN [facility] Oxygen Delivery Device Room Air [facility] Venous Blood Base Excess -25 mmol/L -1.0-3.5 [facility] Venous Blood Total Carbon Dioxide < 5 mmol/L 23-33 [facility] PO2 venousOrdered By: Dr. David guillory on 08-18-2022 Oxygen (BldV) [Partial pressure] 64 mm[Hg] 25-40 [facility] Protein Test strip Ql (U)Ord ered By: Dr. Cruz on 08-18-2022 Protein Ql (U) 15 mg/dl Negative [facility] Serum or plasma acetone koby urement (mass/volume)Ordered By: Dr. Handy on 08-18-2022 Acetone [Mass/Vol] LARGE NEG [facility] Serum or plasma albumin koby urement (mass/volume)Ordered By: Dr. Cruz on 08-18-2022 Albumin [Mass/Vol] 3.2 g/dL 3.2-5.0 [facility] Squamous epithelial cells de tection in urine sediment by light microscopyOrdered By: Dr. Cruz on 08-18-2022 Epithelial cells.squamous LM Ql (Urine sed) 0 SEEN /hpf 0-5 [facility] Thin prep Papanicolaou smear with manual screeningOrdered By: Dr. Cruz on 08-18-2022 Thin prep Papanicolaou smear with manual screening 3 U/L 15-37 [facility] Urine blood detectionOrdered By: Dr. Cruz on 08-18-2022 RBC Ql (U) Negative Negative [facility] RBC Ql (U) 0 SEEN /hpf 0-5 [facility] Urine clarityOrdered By: Dr. Cruz on 08-18-2022 Clarity (U) Clear Clear [facility] Urine color determinationOrd ered By: Dr. Cruz on 08-18-2022 Color (U) Straw Yellow [facility] Urine glucose detectionOrder ed By: Dr. Cruz on 08-18-2022 Glucose Ql (U) 1000 mg/dl Normal [facility] Urine leukocyte esterase det ection by dipstickOrdered By: Dr. Cruz on 08-18-2022 Leukocyte esterase Test strip Ql (U) Negative Negative [facility] Urine pHOrdered By: Dr. Karla green on 08-18-2022 pH (U) 5.0 [pH] 5.0 - 8.0 [facility] Urine sediment bacteria coun t by microscopy (number/high power field)Ordered By: Dr. Cruz on 08-18-2022 Bacteria LM.HPF (Urine sed) [#/Area] 0 /[HPF] None Seen [facility] Urine specific gravity measu rementOrdered By: Dr. Cruz on 08-18-2022 Specific gravity (U) [Rel density] 1.020 1.002-1.03 0 [facility] Urobilinogen Auto test strip Ql (U)Ordered By: Dr. Cruz on 08-18-2022 Urobilinogen Ql (U) Normal mg/dl Normal [facility] Vital signsOrdered By: Dr. Bladimir hernandez on 08-18-2022 Oxygen saturation in Blood 84 % 50-70 [facility] Whole blood hemoglobin A1c/t otal hemoglobin ratio (mass fraction)Ordered By: Dr. Handy on 08-18-2022 HbA1c (Bld) [Mass fraction] 10.7 % 3.8-5.6 [facility] Comment on above: Normal < 5.7 % Predi abetic 5.7 - 6.4 % Diabetic >or= 6.5 % Please note range changes. pH measurementOrdered By: Dr Shin Cruz on 08-18-2022 pH (Unsp spec) 7.10 [pH] 7.32-7.42 [facility] Absolute lymphocyte countOrd ered By: Lourdes Metz on 07-07-2022 Lymphocytes Auto (Unsp spec) [#/Vol] 1.75 10*3/uL 0.83-4.51 [facility] Basophil percentageOrdered B y: Lourdes Metz on 07-07-2022 Basophils/100 WBC (Bld) 0.4 % 0-1 [facility] Chloride [Moles/Vol] 95 mmol/L 98-107 [facility] Eosinophils/100 WBC (Bld) 0.4 % 0-5 [facility] Glucose [Mass/Vol] 376 mg/dL 74-106 [facility] Comment on above: Glucose result great er than or equal to 200 mg/dLsuggests DIABETES MELLITUS per A.D.A. criteria. Neutrophils (Bld) [#/Vol] 4.7 10*3/uL 2.0-7.7 [facility] Neutrophils/100 WBC (Bld) 62.7 % 47-70 [facility] Potassium [Moles/Vol] 3.6 mmol/L 3.5-5.1 [facility] Sodium [Moles/Vol] 133 mmol/L 136-145 [facility] WBC (Bld) [#/Vol] 7.5 10*3/uL 4.4-11.0 [facility] Blood erythrocytes count (nu mber/volume)Ordered By: Lourdes Metz on 07-07-2022 RBC (Bld) [#/Vol] 5.38 10*6/uL 4.6-6.2 [facility] Blood hemoglobin measurement (mass/volume)Ordered By: Lourdes Metz on 07-07-2022 Hemoglobin (Bld) [Mass/Vol] 14.3 g/dL 13.0-16.5 [facility] Blood lymphocytes/100 leukoc ytesOrdered By: Lourdes Metz on 07-07-2022 Lymphocytes/100 WBC (Bld) 23.2 % 19-41 [facility] Blood monocytes/100 leukocyt esOrdered By: Lourdes Metz on 07-07-2022 Monocytes/100 WBC (Bld) 13.0 % 0-10 [facility] Blood platelet mean volumeOr dered By: Lourdes Metz on 07-07-2022 Platelet mean volume (Bld) [Entitic vol] 11.2 fL 6.2-12.0 [facility] Determination of erythrocyte mean corpuscular volume (MCV)Ordered By: Lourdes Metz on 07-07-2022 MCV (RBC) [Entitic vol] 81.0 fL 80-94 [facility] Glucose Glucometer (dC) [M ass/Vol]Ordered By: Dr. Mcclain on 07-07-2022 Glucose [Mass/Vol] 158 mg/dL 74-106 [facility] Comment on above: MANAGEMENT OF PATIEN T CARE PER NURSING PROTOCOL Hematocrit Auto (Bld) [Volum e fraction]Ordered By: Lourdes Metz on 07-07-2022 Hematocrit (Bld) [Volume fraction] 43.6 % 40-54 [facility] Influenza virus A and B and SARS-CoV-2 (COVID-19) Ag panel - Upper respiratory specimOrdered By: Lourdes Metz on 07-07-2022 SARS-CoV-2 & FLU Antigen (Rapid) SARS-CoV-2 (COVID 19) [facility] Laboratory - Chemistry and C hemistry - challengeOrdered By: Lourdes Metz on 07-07-2022 CO2 [Moles/Vol] 29.0 mmol/L 21.0-32.0 [facility] Urea nitrogen/Creatinine [Mass ratio] 10.0 mg/mg 10-20 [facility] Laboratory - Hematology and Cell countsOrdered By: Lourdes Metz on 07-07-2022 Erythrocyte distribution width (RBC) [Entitic vol] 41.0 fL 35.1-43.9 [facility] Erythrocyte distribution width (RBC) [Ratio] 14.0 % 11.6-14.6 [facility] Immature granulocytes/100 WBC (Bld) 0.300 % 0.0-0.9 [facility] Comment on above: IG% - Immature Granu locytes (promyelocytes, myelocytes and metamyelocytes) > 1% indicates that a LEFT SHIFT is Present. MCH (RBC) [Entitic mass] 26.6 pg 27.0-32.0 [facility] Nucleated RBC/100 WBC (Bld) [Ratio] 0 % 0-5 [facility] MCHC Auto (RBC) [Mass/Vol]Or dered By: Lourdes Metz on 07-07-2022 MCHC (RBC) [Mass/Vol] 32.8 g/dL 32-36 [facility] No Panel InformationOrdered By: Lourdes Metz on 07-07-2022 D-Dimer Quantitative (PE/DVT) 0.28 FEU/ug/m 0.27-0.49 [facility] Comment on above: NORMAL D-Dimer level (<0.50) indicates no DVT or PE. Estimated Creatinine Clearance Calc 109.25 ml/min [facility] Estimated GFR (MDRD) Amer 117 mL/min >60 [facility] Comment on above: GFR Calc Estimated GFR (MDRD) Non-Af Amer 97 mL/min >60 [facility] Comment on above: Non- GFR Calc Troponin I High Sensitivity 4 pg/mL 3.0-78.0 [facility] Comment on above: Please Note: New Nayla t Units and Gender Specific Reference Ranges. For more information see Policy Stat Procedure [place] High Sensitivity Troponin (TNIH) and attachments. Platelets bldOrdered By: Graham Metz on 07-07-2022 Platelets (Bld) [#/Vol] 260 10*3/uL 150-450 [facility] Serum or plasma calcium koby urement (mass/volume)Ordered By: Lourdes Metz on 07-07-2022 Calcium [Mass/Vol] 8.8 mg/dL 8.5-10.1 [facility] Serum or plasma creatinine m easurement (mass/volume)Ordered By: Lourdes Metz on 07-07-2022 Creatinine [Mass/Vol] 1.00 mg/dL 0.70-1.30 [facility] Comment on above: The validity of the calculated GFR & GFRAA in patients over 70 years has not been determined. Clinical correlation is essential. Serum or plasma urea nitroge n measurement (mass/volume)Ordered By: Lourdes Metz on 07-07-2022 Urea nitrogen [Mass/Vol] 10 mg/dL 7-18 [facility] Thin prep Papanicolaou smear with manual screeningOrdered By: Lourdes Metz on 07-07-2022 Thin prep Papanicolaou smear with manual screening 9 5-15 [facility] Glucose Glucometer (BldC) [M ass/Vol]Ordered By: Dr. Zarate on 07-01-2022 Glucose [Mass/Vol] 85 mg/dL 74-106 [facility] Comment on above: MANAGEMENT OF PATIEN T CARE PER NURSING PROTOCOL Serum or plasma acetone koby urement (mass/volume)Ordered By: Dr. Zarate on 07-01-2022 Acetone [Mass/Vol] MODERATE NEG [facility] Absolute lymphocyte countOrd ered By: Dr. Zarate on 06-30-2022 Lymphocytes Auto (Unsp spec) [#/Vol] 4.64 10*3/uL 0.83-4.51 [facility] Basophil percentageOrdered B y: Dr. Zarate on 06-30-2022 Basophils/100 WBC (Bld) 0.8 % 0-1 [facility] Chloride [Moles/Vol] 97 mmol/L 98-107 [facility] Eosinophils/100 WBC (Bld) 5.2 % 0-5 [facility] Glucose [Mass/Vol] 569 mg/dL 74-106 [facility] Comment on above: Critical Result(s) C alled at: 23:51:55 06/30/2022 by: Jorge A Tamayo TO CURT HORN RN (ED) Results read back by same.Glucose result greater than or equal to 200 mg/dLsuggests DIABETES MELLITUS per A.D.A. criteria. Neutrophils (Bld) [#/Vol] 5.9 10*3/uL 2.0-7.7 [facility] Neutrophils/100 WBC (Bld) 48.9 % 47-70 [facility] Potassium [Moles/Vol] 4.2 mmol/L 3.5-5.1 [facility] Sodium [Moles/Vol] 134 mmol/L 136-145 [facility] WBC (Bld) [#/Vol] 12.1 10*3/uL 4.4-11.0 [facility] Blood erythrocytes count (nu mber/volume)Ordered By: Dr. Zarate on 06-30-2022 RBC (Bld) [#/Vol] 5.32 10*6/uL 4.6-6.2 [facility] Blood hemoglobin measurement (mass/volume)Ordered By: Dr. Zarate on 06-30-2022 Hemoglobin (Bld) [Mass/Vol] 14.0 g/dL 13.0-16.5 [facility] Blood lymphocytes/100 leukoc ytesOrdered By: Dr. Zarate on 06-30-2022 Lymphocytes/100 WBC (Bld) 38.4 % 19-41 [facility] Blood monocytes/100 leukocyt esOrdered By: Dr. Zarate on 06-30-2022 Monocytes/100 WBC (Bld) 6.0 % 0-10 [facility] Blood platelet mean volumeOr dered By: Dr. Zarate on 06-30-2022 Platelet mean volume (Bld) [Entitic vol] 10.6 fL 6.2-12.0 [facility] Determination of erythrocyte mean corpuscular volume (MCV)Ordered By: Dr. Zarate on 06-30-2022 MCV (RBC) [Entitic vol] 80.3 fL 80-94 [facility] Hematocrit Auto (Bld) [Volum e fraction]Ordered By: Dr. Zarate on 06-30-2022 Hematocrit (Bld) [Volume fraction] 42.7 % 40-54 [facility] Laboratory - Chemistry and C hemistry - challengeOrdered By: Dr. Zarate on 06-30-2022 CO2 [Moles/Vol] 22.0 mmol/L 21.0-32.0 [facility] Urea nitrogen/Creatinine [Mass ratio] 15.8 mg/mg 10-20 [facility] Laboratory - Hematology and Cell countsOrdered By: Dr. Zarate on 06-30-2022 Erythrocyte distribution width (RBC) [Entitic vol] 39.7 fL 35.1-43.9 [facility] Erythrocyte distribution width (RBC) [Ratio] 13.7 % 11.6-14.6 [facility] Immature granulocytes/100 WBC (Bld) 0.700 % 0.0-0.9 [facility] Comment on above: IG% - Immature Granu locytes (promyelocytes, myelocytes and metamyelocytes) > 1% indicates that a LEFT SHIFT is Present. MCH (RBC) [Entitic mass] 26.3 pg 27.0-32.0 [facility] Nucleated RBC/100 WBC (Bld) [Ratio] 0 % 0-5 [facility] MCHC Auto (RBC) [Mass/Vol]Or dered By: Dr. Zarate on 06-30-2022 MCHC (RBC) [Mass/Vol] 32.8 g/dL 32-36 [facility] No Panel InformationOrdered By: Dr. Zarate on 06-30-2022 D-Dimer Quantitative (PE/DVT) < 0.27 FEU/ug/m 0.27-0.49 [facility] Comment on above: NORMAL D-Dimer level (<0.50) indicates no DVT or PE. Estimated Creatinine Clearance Calc 97.16 ml/min [facility] Estimated GFR (MDRD) Amer 95 mL/min >60 [facility] Comment on above: GFR Calc Estimated GFR (MDRD) Non-Af Amer 78 mL/min >60 [facility] Comment on above: Non- GFR Calc Troponin I High Sensitivity 4 pg/mL 3.0-78.0 [facility] Comment on above: Please Note: New Nayla t Units and Gender Specific Reference Ranges. For more information see Policy Stat Procedure [place] High Sensitivity Troponin (TNIH) and attachments. Platelets bldOrdered By: Dr. Zarate on 06-30-2022 Platelets (Bld) [#/Vol] 456 10*3/uL 150-450 [facility] Serum or plasma calcium koby urement (mass/volume)Ordered By: Dr. Zartae on 06-30-2022 Calcium [Mass/Vol] 8.8 mg/dL 8.5-10.1 [facility] Serum or plasma creatinine m easurement (mass/volume)Ordered By: Dr. Zarate on 06-30-2022 Creatinine [Mass/Vol] 1.20 mg/dL 0.70-1.30 [facility] Comment on above: The validity of the calculated GFR & GFRAA in patients over 70 years has not been determined. Clinical correlation is essential. Serum or plasma urea nitroge n measurement (mass/volume)Ordered By: Dr. Zarate on 06-30-2022 Urea nitrogen [Mass/Vol] 19 mg/dL 7-18 [facility] Thin prep Papanicolaou smear with manual screeningOrdered By: Dr. Zarate on 06-30-2022 Thin prep Papanicolaou smear with manual screening 15 5-15 [facility] Absolute lymphocyte counton 03-03-2022 Lymphocytes Auto (Unsp spec) [#/Vol] 3.87 10*3/uL 0.83-4.51 [facility] Work Phone: Basophil percentageon 2021 Basophils/100 WBC (Bld) 0.3 % 0-1 [facility] Work Phone: Chloride [Moles/Vol] 113 mmol/L 98-107 [facility] Work Phone: Eosinophils/100 WBC (Bld) 1.7 % 0-5 [facility] Work Phone: Glucose [Mass/Vol] 71 mg/dL 74-106 [facility] Work Phone: Neutrophils (Bld) [#/Vol] 8.9 10*3/uL 2.0-7.7 [facility] Work Phone: Neutrophils/100 WBC (Bld) 62.2 % 47-70 [facility] Work Phone: Potassium [Moles/Vol] 3.6 mmol/L 3.5-5.1 [facility] Work Phone: Sodium [Moles/Vol] 142 mmol/L 136-145 [facility] Work Phone: WBC (Bld) [#/Vol] 14.3 10*3/uL 4.4-11.0 [facility] Work Phone: Blood erythrocytes count (nu mber/volume)on 03-03-2022 RBC (Bld) [#/Vol] 4.58 10*6/uL 4.6-6.2 [facility] Work Phone: Blood hemoglobin measurement (mass/volume)on 03-03-2022 Hemoglobin (Bld) [Mass/Vol] 12.6 g/dL 13.0-16.5 [facility] Work Phone: Blood lymphocytes/100 leukoc yteson 03-03-2022 Lymphocytes/100 WBC (Bld) 27.0 % 19-41 [facility] Work Phone: Blood monocytes/100 leukocyt eson 03-03-2022 Monocytes/100 WBC (Bld) 8.2 % 0-10 [facility] Work Phone: Blood platelet mean volumeon 03-03-2022 Platelet mean volume (Bld) [Entitic vol] 9.4 fL 6.2-12.0 [facility] Work Phone: Determination of erythrocyte mean corpuscular volume (MCV)on 03-03-2022 MCV (RBC) [Entitic vol] 83.6 fL 80-94 [facility] Work Phone: Comment on above: Delta: 91.7 on 03/02-1026 Glucose Glucometer (BldC) [M ass/Vol]on 03-03-2022 Glucose [Mass/Vol] 224 mg/dL 74-106 [facility] Work Phone: Comment on above: MANAGEMENT OF PATIEN T CARE PER NURSING PROTOCOL Hematocrit Auto (Bld) [Volum e fraction]on 03-03-2022 Hematocrit (Bld) [Volume fraction] 38.3 % 40-54 [facility] Work Phone: Laboratory - Chemistry and C hemistry - challengeon 03-03-2022 CO2 [Moles/Vol] 21.0 mmol/L 21.0-32.0 [facility] Work Phone: Urea nitrogen/Creatinine [Mass ratio] 14.9 mg/mg 10-20 [facility] Work Phone: Laboratory - Hematology and Cell countson 03-03-2022 Erythrocyte distribution width (RBC) [Entitic vol] 43.5 fL 35.1-43.9 [facility] Work Phone: Erythrocyte distribution width (RBC) [Ratio] 14.3 % 11.6-14.6 [facility] Work Phone: Immature granulocytes/100 WBC (Bld) 0.600 % 0.0-0.9 [facility] Work Phone: Comment on above: IG% - Immature Granu locytes (promyelocytes, myelocytes and metamyelocytes) > 1% indicates that a LEFT SHIFT is Present. MCH (RBC) [Entitic mass] 27.5 pg 27.0-32.0 [facility] Work Phone: Nucleated RBC/100 WBC (Bld) [Ratio] 0 % 0-5 [facility] Work Phone: MCHC Auto (RBC) [Mass/Vol]on 03-03-2022 MCHC (RBC) [Mass/Vol] 32.9 g/dL 32-36 [facility] Work Phone: Comment on above: Delta: 29.6 on 03/02-1026 No Panel Informationon 03-03 Estimated Creatinine Clearance Calc 111.61 ml/min [facility] Work Phone: Estimated GFR (MDRD) Amer 150 mL/min >60 [facility] Work Phone: Comment on above: GFR Calc Estimated GFR (MDRD) Non-Af Amer 124 mL/min >60 [facility] Work Phone: Comment on above: Non- GFR Calc Platelets bldon 03-03-2022 Platelets (Bld) [#/Vol] 345 10*3/uL 150-450 [facility] Work Phone: Serum or plasma calcium koby urement (mass/volume)on 03-03-2022 Calcium [Mass/Vol] 7.9 mg/dL 8.5-10.1 [facility] Work Phone: Serum or plasma creatinine m easurement (mass/volume)on 03-03-2022 Creatinine [Mass/Vol] 0.81 mg/dL 0.70-1.30 [facility] Work Phone: Comment on above: The validity of the calculated GFR & GFRAA in patients over 70 years has not been determined. Clinical correlation is essential. Serum or plasma urea nitroge n measurement (mass/volume)on 03-03-2022 Urea nitrogen [Mass/Vol] 12 mg/dL 7-18 [facility] Work Phone: Thin prep Papanicolaou smear with manual screeningon 03-03-2022 Thin prep Papanicolaou smear with manual screening 8 5-15 [facility] Work Phone: Absolute lymphocyte counton 2022 Lymphocytes Auto (Unsp spec) [#/Vol] 4.87 10*3/uL 0.83-4.51 [facility] Work Phone: Basophil percentageon 2021 Basophil percentage 0 SEEN /hpf 0-5 [facility] Work Phone: Basophil percentage 9.1 mg/dL 2.5-4.9 [facility] Work Phone: Comment on above: Critical Result(s) C alled at: 11:23:45 2022 by: Renita Butt to Jd. Results read back by same. Basophils/100 WBC (Bld) 0.9 % 0-1 [facility] Work Phone: Bilirubin [Mass/Vol] 0.60 mg/dL 0.20-1.00 [facility] Work Phone: Comment on above: For patients on eltr ombopag therapy, use of Dimension [place] TBIL is not recommended. Chloride [Moles/Vol] 86 mmol/L 98-107 [facility] Work Phone: Eosinophils/100 WBC (Bld) 0.8 % 0-5 [facility] Work Phone: Glucose [Mass/Vol] 852 mg/dL 74-106 [facility] Work Phone: Comment on above: Critical Result(s) C alled at: 11:23:45 2022 by: Renita Butt to Jd. Results read back by same.Glucose result greater than or equal to 200 mg/dLsuggests DIABETES MELLITUS per A.D.A. criteria. Neutrophils (Bld) [#/Vol] 11.8 10*3/uL 2.0-7.7 [facility] Work Phone: Neutrophils/100 WBC (Bld) 64.6 % 47-70 [facility] Work Phone: Potassium [Moles/Vol] 5.2 mmol/L 3.5-5.1 [facility] Work Phone: Protein [Mass/Vol] 9.0 g/dL 6.4-8.2 [facility] Work Phone: Sodium [Moles/Vol] 128 mmol/L 136-145 [facility] Work Phone: WBC (Bld) [#/Vol] 18.3 10*3/uL 4.4-11.0 [facility] Work Phone: Bilirubin Test strip Ql (U)o n 2022 Bilirubin Ql (U) Negative Negative [facility] Work Phone: Blood erythrocytes count (nu mber/volume)on 2022 RBC (Bld) [#/Vol] 6.11 10*6/uL 4.6-6.2 [facility] Work Phone: Blood hemoglobin measurement (mass/volume)on 2022 Hemoglobin (Bld) [Mass/Vol] 16.6 g/dL 13.0-16.5 [facility] Work Phone: Blood lymphocytes/100 leukoc yteson 2022 Lymphocytes/100 WBC (Bld) 26.6 % 19-41 [facility] Work Phone: Blood monocytes/100 leukocyt eson 2022 Monocytes/100 WBC (Bld) 5.5 % 0-10 [facility] Work Phone: Blood platelet mean volumeon 2022 Platelet mean volume (Bld) [Entitic vol] 10.7 fL 6.2-12.0 [facility] Work Phone: Determination of erythrocyte mean corpuscular volume (MCV)on 2022 MCV (RBC) [Entitic vol] 91.7 fL 80-94 [facility] Work Phone: Hematocrit Auto (Bld) [Volum e fraction]on 2022 Hematocrit (Bld) [Volume fraction] 56.0 % 40-54 [facility] Work Phone: Ketones Test strip Ql (U)on 2022 Ketones Ql (U) 150 mg/dl Negative [facility] Work Phone: Comment on above: CRITICAL VALUE VERIF IED. CALLED TO ODETTE MCADAMS RN (ICU)03/02/22 1845 Ney Navarro.RESULTS READ BACK BY SAME . CRITICAL VALUE *H Laboratory - Chemistry and C hemistry - challengeon 2022 ALP [Catalytic activity/Vol] 288 U/L 45-117 [facility] Work Phone: ALT [Catalytic activity/Vol] 62 U/L 16-61 [facility] Work Phone: CK [Catalytic activity/Vol] 44 U/L 39-308 [facility] Work Phone: CO2 [Moles/Vol] 10.0 mmol/L 21.0-32.0 [facility] Work Phone: Globulin (S) [Mass/Vol] 4.9 g/dL 2.2-4.2 [facility] Work Phone: Magnesium [Mass/Vol] 2.6 mg/dL 1.6-2.6 [facility] Work Phone: Urea nitrogen/Creatinine [Mass ratio] 17.3 mg/mg 10-20 [facility] Work Phone: Laboratory - Hematology and Cell countson 2022 Erythrocyte distribution width (RBC) [Entitic vol] 47.6 fL 35.1-43.9 [facility] Work Phone: Erythrocyte distribution width (RBC) [Ratio] 14.2 % 11.6-14.6 [facility] Work Phone: Immature granulocytes/100 WBC (Bld) 1.600 % 0.0-0.9 [facility] Work Phone: Comment on above: IG% - Immature Granu locytes (promyelocytes, myelocytes and metamyelocytes) > 1% indicates that a LEFT SHIFT is Present. MCH (RBC) [Entitic mass] 27.2 pg 27.0-32.0 [facility] Work Phone: Nucleated RBC/100 WBC (Bld) [Ratio] 0 % 0-5 [facility] Work Phone: MCHC Auto (RBC) [Mass/Vol]on 2022 MCHC (RBC) [Mass/Vol] 29.6 g/dL 32-36 [facility] Work Phone: Mucus LM Ql (Urine sed)on Mucus Ql (Urine sed) 0 SEEN /hpf [facility] Work Phone: Nitrite Test strip Ql (U)on 2022 Nitrite Ql (U) Negative Negative [facility] Work Phone: No Panel Informationon 03-02 Estimated Creatinine Clearance Calc 60.37 ml/min [facility] Work Phone: Estimated GFR (MDRD) Amer 67 mL/min >60 [facility] Work Phone: Comment on above: GFR Calc Estimated GFR (MDRD) Non-Af Amer 56 mL/min >60 [facility] Work Phone: Comment on above: Non- GFR Calc Platelets bldon 2022 Platelets (Bld) [#/Vol] 518 10*3/uL 150-450 [facility] Work Phone: Protein Test strip Ql (U)on 2022 Protein Ql (U) 30 mg/dl Negative [facility] Work Phone: Serum or plasma acetone koby urement (mass/volume)on 2022 Acetone [Mass/Vol] MODERATE NEG [facility] Work Phone: Serum or plasma albumin koby urement (mass/volume)on 2022 Albumin [Mass/Vol] 4.1 g/dL 3.2-5.0 [facility] Work Phone: Serum or plasma albumin/glob ulin mass ratioon 2022 Albumin/Globulin [Mass ratio] 0.8 {ratio} 0.9-2.4 [facility] Work Phone: Serum or plasma calcium koby urement (mass/volume)on 2022 Calcium [Mass/Vol] 9.4 mg/dL 8.5-10.1 [facility] Work Phone: Serum or plasma creatinine m easurement (mass/volume)on 2022 Creatinine [Mass/Vol] 1.62 mg/dL 0.70-1.30 [facility] Work Phone: Comment on above: The validity of the calculated GFR & GFRAA in patients over 70 years has not been determined. Clinical correlation is essential. Serum or plasma urea nitroge n measurement (mass/volume)on 2022 Urea nitrogen [Mass/Vol] 28 mg/dL 7-18 [facility] Work Phone: Squamous epithelial cells de tection in urine sediment by light microscopyon 2022 Epithelial cells.squamous LM Ql (Urine sed) 0 SEEN /hpf 0-5 [facility] Work Phone: Thin prep Papanicolaou smear with manual screeningon 2022 Thin prep Papanicolaou smear with manual screening 16 U/L 15-37 [facility] Work Phone: Thin prep Papanicolaou smear with manual screening 32 5-15 [facility] Work Phone: Urine blood detectionon - RBC Ql (U) Negative Negative [facility] Work Phone: RBC Ql (U) 0 SEEN /hpf 0-5 [facility] Work Phone: Urine clarityon 2022 Clarity (U) Clear Clear [facility] Work Phone: Urine coarse granular cast d etectionon 2022 Coarse Granular Casts LM Ql (Urine sed) 5-10 SEEN /lpf 0-5 /lpf [facility] Work Phone: Urine color determinationon 2022 Color (U) Yellow Yellow [facility] Work Phone: Urine glucose detectionon Glucose Ql (U) 1000 mg/dl Normal [facility] Work Phone: Urine leukocyte esterase det ection by dipstickon 2022 Leukocyte esterase Test strip Ql (U) Negative Negative [facility] Work Phone: Urine pHon 2022 pH (U) 5.0 [pH] 5.0 - 8.0 [facility] Work Phone: Urine sediment bacteria coun t by microscopy (number/high power field)on 2022 Bacteria LM.HPF (Urine sed) [#/Area] 1 /[HPF] None Seen [facility] Work Phone: Urine specific gravity measu rementon 2022 Specific gravity (U) [Rel density] 1.025 1.002-1.03 0 [facility] Work Phone: Urobilinogen Auto test strip Ql (U)on 2022 Urobilinogen Ql (U) Normal mg/dl Normal [facility] Work Phone: CT HEAD W/O CONTRASTon 04-21 CT HEAD W/O CONTRAST Performed at [facility] APPROVED BY: Elkin Mays MD EXAMINATION: [...] noted left parietal convexity subdural hematoma. Normal [facility] ALLIED HEALTHon 03-23-2018 ALLIED HEALTH HNO ID: [id number]: Zoila () Marylu Burgosice: Spiritual CareAuthor Type: ChaplainType: Allied HealthFiled: 03/23/2018 10:44 AMNote Text: SPIRITUALCARESpiritual Care Visit- Brief NoteName: Una Alexandra AleaMRN: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 Code 32-36 [facility] Work Phone: MCV 84.9 fL Invalid Interpretation Code 80-94 [facility] Work Phone: Monocytes/100 leukocytes 11.7 % High 0-10 [facility] Work Phone: neutrophil count, blood 3.3 X10 3/UL Invalid Interpretation Code 2.0-7.7 [facility] Work Phone: Neutrophils/100 leukocytes 57.2 % Invalid Interpretation Code 47-70 [facility] Work Phone: Platelets 206 10*3/mm3 Invalid Interpretation Code 150-450 [facility] Work Phone: PMV by Perry 11.0 fL Invalid Interpretation Code 6.2-12.0 [facility] Work Phone: RDW-CA 13.0 % Invalid Interpretation Code 11.6-14.6 [facility] Work Phone: red blood cell distribution width, size density 39.2 fL Invalid Interpretation Code 35.1-43.9 [facility] Work Phone: WBC (Leukocytes) 5.8 10*3/uL Invalid Interpretation Code 4.4-11.0 [facility] Work Phone: Lab Report: Hemoglobin A1con 01-14-2017 HbA1c 11.6 % High 4.2-6.3 [facility] Work Phone: Lab Report: Lactic Acidon Lactate 1.8 mmol/L Invalid Interpretation Code 0.4-2.0 [facility] Work Phone: Lactate 6.0 mmol/L Critically high 0.4-2.[facility] Work Phone: Lactate 4.8 mmol/L Critically high 0.4-2.0 [facility] Work Phone: Lab Report: Alex R Staph Aureus DNA by PCRon 01-14-2017 INR in blood by coagulation Negative Invalid Interpretation Code Negative [facility] Phone: Lab Report: MRSA Wound DNA b y PCRon 01-14-2017 GE use only - for [employer] import when terms are not otherwise specified Negative Invalid Interpretation Code Negative [facility] Phone: SA RESULT Negative Negative [facility] Work Phone: Office Visiton 12-10-2016 Documentation of current medications (procedure) Done Invalid Interpretation Code [facility] Work Phone: Fall risk assessment No Invalid Interpretation Code [facility] Work Phone: Protein mass conc Done [facility] Work Phone: Chart Maintenance: Basaglaro n 11-12-2016 Urine, microalbumin mg/dL Invalid Interpretation Code [facility] Work Phone: Lab Report: Hemoglobin A1con 11-12-2016 HbA1c 12.0 % High 4.2-6.3 [facility] Work Phone: Lab Report: Microalb:Creat R atio,Random URon 11-12-2016 ACR (microalbumin/creatinin e) ratio Test not performed mg/g CRE Invalid Interpretation Code <30 mg/g CRE [facility] Work Phone: Albumin/Creatinine DL <= 20 mg/L Ratio (U) Test not performed mg/g CRE <30 mg/g CRE [facility] Work Phone: Urine, creatinine 38.10 mg/dL Invalid Interpretation Code NO RANGE EST. [facility] Work Phone: Urine, microalbumin < 5.0 mg/L Invalid Interpretation Code NO RANGE EST. [facility] Work Phone: Office Visit: Diabetes- [facility].on 11-12-2016 Adolescent depression screening assessment Adolescent depression screening assessment Invalid Interpretation Code [facility] Work Phone: Adult depression screening assessment Adolescent depression screening assessment [facility] Work Phone: Documentation of current medications (procedure) Done Invalid Interpretation Code [facility] Work Phone: Fall risk assessment No Invalid Interpretation Code [facility] Work Phone: Protein mass conc yes [facility] Work Phone: Smoking cessation education (procedure) yes Invalid Interpretation Code [facility] Work Phone: Tobacco smoking status NHIS Current Invalid Interpretation Code [facility] Work Phone: Tobacco smoking status [facility] Current every day smoker [facility] Work Phone: Tobacco use [facility] Current every day smoker Invalid Interpretation Code [facility] Work Phone: Influenza virus A and B and SARS-CoV-2 (COVID-19) Ag panel - Upper respiratory specim SARS-CoV-2 & FLU Antigen (Rapid) SARS-CoV-2 (COVID 19) [facility] Work Phone: Laboratory - Microbiology an d Antimicrobial susceptibility Respiratory pathogens DNA and RNA 12b panel LM+probe (Unsp spec) [facility] Work Phone: Throat Streptococcus pyogene s antigen detection by immunofluorescence S. pyogenes Ag IF Ql (Throat) [facility] Work Phone: Vital Signs Date Time Vital Sign Value Performing Clinician Facility 02-27-2025 14:53-0400 Body temperature 97.9 [degF] No Primary Care Physician [facility] 02-27-2025 14:53-0400 Diastolic blood pressure 78 mm[Hg] No Primary Care Physician [facility] 02-27-2025 14:53-0400 Heart rate 99 /min No Primary Care Physician [facility] 02-27-2025 14:53-0400 Respiratory rate 19 /min No Primary Care Physician [facility] 02-27-2025 14:53-0400 SaO2% (BldA) [Mass fraction] 99 % No Primary Care Physician [facility] 02-27-2025 14:53-0400 Systolic blood pressure 101 mm[Hg] No Primary Care Physician [facility] 02-27-2025 12:26-0400 Body height 182.88 cm No Primary Care Physician [facility] 02-27-2025 12:26-0400 Body mass index (BMI) [Ratio] 18.3 kg/m2 No Primary Care Physician [facility] 02-27-2025 12:26-0400 Body weight 61.5 kg No Primary Care Physician [facility] 02-05-2025 14:00-0400 Diastolic blood pressure 76 mm[Hg] Dr. Keisha Handy DO Work Phone: 9(602)924-835788 [place] [address] 02-05-2025 14:00-0400 Heart rate 89 /min Dr. Keisha Handy DO Work Phone: 4(385)539-193088 [place] [address] 02-05-2025 14:00-0400 Respiratory rate 18 /min Dr. Keisha Handy DO Work Phone: 1(405)210-462488 [place] [address] 02-05-2025 14:00-0400 SaO2% (BldA) [Mass fraction] 98 % Dr. Keisha Handy DO Work Phone: 4(016)764-149188 [place] [address] 02-05-2025 10:15-0400 Body height 182.[address] Keisha Handy DO Work Phone: 4(125)383-085888 [place] [address] 02-05-2025 10:15-0400 Body weight 61.[address] Keisha Handy DO Work Phone: 4(339)683-290588 [place] [address] 02-05-2025 05:48-0400 Body mass index (BMI) [Ratio] 18.3 kg/m2 Dr. Keisha Handy DO Work Phone: 2(721)572-257388 [place] [address] 02-05-2025 04:00-0400 Diastolic blood pressure 75 mm[Hg] Dr. Keisha Handy DO Work Phone: 1(507)235-913088 [place] [address] 02-05-2025 04:00-0400 Heart rate 113 /min Dr. Keisha Handy DO Work Phone: 1(587)697-037288 [place] [address] 02-05-2025 04:00-0400 Respiratory rate 20 /min Dr. Keisha Handy DO Work Phone: 6(531)174-285888 [place] [address] 02-05-2025 04:00-0400 SaO2% (BldA) [Mass fraction] 100 % Dr. Keisha Handy DO Work Phone: 1(410)868-928088 [place] [address] 02-05-2025 04:00-0400 Systolic blood pressure 118 mm[Hg] Dr. Keisha Handy DO Work Phone: 9(854)299-556688 [place] [address] 02-05-2025 03:46-0400 Body temperature 97.9 [degF] Dr. Keisha Handy DO Work Phone: 9(814)892-384208 [place] [address] 02-05-2025 02:20-0400 Body height 182.[address] Keisha Handy DO Work Phone: 8(559)423-558288 [place] [address] 02-05-2025 02:20-0400 Body mass index (BMI) [Ratio] 18.3 kg/m2 Dr. Keisha Handy DO Work Phone: 0(779)653-813688 [place] [address] 02-05-2025 02:20-0400 Body weight 61.[address] Keisha Handy DO Work Phone: 7(100)587-975488 [place] [address] 01-26-2025 17:27-0400 Body temperature 97.8 [degF] Dr. Keisha Handy DO Work Phone: 9(559)163-993188 [place] [address] 01-26-2025 17:27-0400 Diastolic blood pressure 95 mm[Hg] Dr. Keisha Handy DO Work Phone: 1(784)077-273288 [place] [address] 01-26-2025 17:27-0400 Heart rate 97 /min Dr. Keisha Handy DO Work Phone: 4(370)288-922288 [place] [address] 01-26-2025 17:27-0400 Respiratory rate 14 /min Dr. Keisha Handy DO Work Phone: 5(128)829-770188 [place] [address] 01-26-2025 17:27-0400 SaO2% (BldA) [Mass fraction] 99 % Dr. Keisha Handy DO Work Phone: 0(871)941-321488 [place] [address] 01-26-2025 17:27-0400 Systolic blood pressure 125 mm[Hg] Dr. Keisha Handy DO Work Phone: 3(852)418-148988 [place] [address] 01-26-2025 11:24-0400 Body height 182.[address] Keisha Handy DO Work Phone: 8(774)232-059688 [place] [address] 01-26-2025 11:24-0400 Body mass index (BMI) [Ratio] 18.6 kg/m2 Dr. Keisha Handy DO Work Phone: 9(065)215-294488 [place] [address] 01-26-2025 11:24-0400 Body weight 62.[address] Keisha Handy DO Work Phone: 2(142)783-716888 [place] [address] 12-14-2024 02:20-0400 Body temperature 98.4 [degF] Dr. Keisha Handy DO Work Phone: 3(388)553-490688 [place] [address] 12-14-2024 02:20-0400 Diastolic blood pressure 68 mm[Hg] Dr. Keisha Handy DO Work Phone: 8(918)576-914408 [place] [address] 12-14-2024 02:20-0400 Heart rate 113 /min Dr. Keisha Handy DO Work Phone: 9(079)818-705488 [place] [address] 12-14-2024 02:20-0400 Respiratory rate 14 /min Dr. Keisha Handy DO Work Phone: 9(318)359-079288 [place] [address] 12-14-2024 02:20-0400 SaO2% (BldA) [Mass fraction] 96 % Dr. Keisha Handy DO Work Phone: 5(979)776-344588 [place] [address] 12-14-2024 02:20-0400 Systolic blood pressure 112 mm[Hg] Dr. Keisha Handy DO Work Phone: 2(895)104-965888 [place] [address] 12-13-2024 21:12-0400 Body height 187.[address] Keisha Handy DO Work Phone: 5(949)858-802888 [place] [address] 12-13-2024 21:12-0400 Body mass index (BMI) [Ratio] 14.6 kg/m2 Dr. Keisha Handy DO Work Phone: 2(305)075-142708 [place] [address] 12-13-2024 21:12-0400 Body weight 51.[address] Keisha Handy DO Work Phone: 7(281)522-359288 [place] [address] 12-12-2024 12:36-0400 Body mass index (BMI) [Ratio] 18.6 kg/m2 Dr. Keisha Handy DO Work Phone: 5(650)170-767908 [place] [address] 12-12-2024 12:36-0400 Body temperature 97 [degF] Dr. Keisha Handy DO Work Phone: 6(942)869-419408 [place] [address] 12-12-2024 12:36-0400 Body weight 62.[address] Keisha Handy DO Work Phone: 1(403)353-224008 [place] [address] 12-12-2024 12:36-0400 Diastolic blood pressure 82 mm[Hg] Dr. Keisha Handy DO Work Phone: 1(216)866-513308 [place] [address] 12-12-2024 12:36-0400 Heart rate 116 /min Dr. Keisha Handy DO Work Phone: 4(542)647-013308 [place] [address] 12-12-2024 12:36-0400 Respiratory rate 18 /min Dr. Keisha Handy DO Work Phone: 1(333)181-417488 [place] [address] 12-12-2024 12:36-0400 SaO2% (BldA) [Mass fraction] 100 % Dr. Keisha Handy DO Work Phone: 2(377)330-587208 [place] [address] 12-12-2024 12:36-0400 Systolic blood pressure 126 mm[Hg] Dr. Keisha Handy DO Work Phone: 1(935)439-899508 [place] [address] 11-11-2024 19:18-0400 Body temperature 97.8 [degF] Dr. Keisha Handy DO Work Phone: 5(793)748-087908 [place] [address] 11-11-2024 19:18-0400 Diastolic blood pressure 86 mm[Hg] Dr. Keisha Handy DO Work Phone: 6(554)832-039008 [place] [address] 11-11-2024 19:18-0400 Heart rate 102 /min Dr. Keisha Handy DO Work Phone: 9(970)275-723208 [place] [address] 11-11-2024 19:18-0400 Respiratory rate 18 /min Dr. Keisha Handy DO Work Phone: 8(377)702-020408 [place] [address] 11-11-2024 19:18-0400 SaO2% (BldA) [Mass fraction] 98 % Dr. Keisha Handy DO Work Phone: 0(408)317-570108 [place] [address] 11-11-2024 19:18-0400 Systolic blood pressure 128 mm[Hg] Dr. Keisha Handy DO Work Phone: [facility] 11-11-2024 17:46-0400 Body height 182.[address] Keisha Handy DO Work Phone: 7(204)896-181808 [place] [address] 11-11-2024 17:46-0400 Body mass index (BMI) [Ratio] 18.7 kg/m2 Dr. Keisha Handy DO Work Phone: 5(959)891-517508 [place] [address] 11-11-2024 17:46-0400 Body weight 62.[address] Keisha Handy DO Work Phone: 1(314)682-772008 [place] [address] 10-19-2024 05:19-0400 Body temperature 97.8 [degF] Dr. Keisha Handy DO Work Phone: 4(490)580-527008 [place] [address] 10-19-2024 05:19-0400 Diastolic blood pressure 81 mm[Hg] Dr. Keisha Handy DO Work Phone: 0(011)240-162008 [place] [address] 10-19-2024 05:19-0400 Heart rate 95 /min Dr. Keisha Handy DO Work Phone: 9(956)642-003508 [place] [address] 10-19-2024 05:19-0400 Respiratory rate 16 /min Dr. Keisha Handy DO Work Phone: 4(850)409-597808 [place] [address] 10-19-2024 05:19-0400 SaO2% (BldA) [Mass fraction] 99 % Dr. Keisha Handy DO Work Phone: 9(483)702-402808 [place] [address] 10-19-2024 05:19-0400 Systolic blood pressure 127 mm[Hg] Dr. Keisha Handy DO Work Phone: 8(116)068-682508 [place] [address] 10-19-2024 00:09-0400 Body height 182.[address] Keisha Handy DO Work Phone: 4(862)419-420708 [place] [address] 10-19-2024 00:09-0400 Body mass index (BMI) [Ratio] 19.5 kg/m2 Dr. Keisha Handy DO Work Phone: [facility] 10-19-2024 00:09-0400 Body weight 65.[address] Keisha Handy DO Work Phone: [facility] 01-04-2023 00:24-0400 Diastolic blood pressure 81 mm[Hg] MD [facility] 01-04-2023 00:24-0400 Heart rate 87 /min MD [facility] 01-04-2023 00:24-0400 Respiratory rate 17 /min MD [facility] 01-04-2023 00:24-0400 SaO2% (BldA) [Mass fraction] 100 % MD [facility] 01-04-2023 00:24-0400 Systolic blood pressure 117 mm[Hg] MD [facility] 01-03-2023 22:18-0400 Body height 182.88 cm MD [facility] 01-03-2023 22:18-0400 Body mass index (BMI) [Ratio] 19.9 kg/m2 MD [facility] 01-03-2023 22:18-0400 Body temperature 96.6 [degF] MD [facility] 01-03-2023 22:18-0400 Body weight 66.7 kg MD [facility] 12-09-2022 21:44-0400 Heart rate 110 /min MD [facility] 12-09-2022 21:44-0400 Respiratory rate 18 /min MD [facility] 12-09-2022 20:08-0400 SaO2% (BldA) [Mass fraction] 99 % MD [facility] 12-09-2022 18:04-0400 Body mass index (BMI) [Ratio] 20.4 kg/m2 MD [facility] 12-09-2022 18:04-0400 Body weight 62.7 kg [facility] 12-09-2022 17:39-0400 Body height 175.26 cm MD [facility] 12-09-2022 17:39-0400 Body temperature 97.9 [degF] [facility] 12-09-2022 17:39-0400 Diastolic blood pressure 63 mm[Hg] MD [facility] 12-09-2022 17:39-0400 Systolic blood pressure 94 mm[Hg] MD [facility] 12-03-2022 22:45-0400 Diastolic blood pressure 84 mm[Hg] MD [facility] 12-03-2022 22:45-0400 Heart rate 104 /min MD [facility] 12-03-2022 22:45-0400 Respiratory rate 18 /min MD [facility] 12-03-2022 22:45-0400 SaO2% (BldA) [Mass fraction] 97 % MD [facility] 12-03-2022 22:45-0400 Systolic blood pressure 127 mm[Hg] MD [facility] 12-03-2022 20:03-0400 Body height 172.72 cm MD [facility] 12-03-2022 20:03-0400 Body mass index (BMI) [Ratio] 22 kg/m2 [facility] 12-03-2022 20:03-0400 Body temperature 97.9 [degF] MD Bright [facility] 12-03-2022 20:03-0400 Body weight 65.7 kg [facility] 11-17-2022 14:00-0400 Heart rate 115 /min MD [facility] 11-17-2022 14:00-0400 Respiratory rate 13 /min MD [facility] 11-17-2022 14:00-0400 SaO2% (BldA) [Mass fraction] 97 % [facility] 11-17-2022 00:52-0400 Body mass index (BMI) [Ratio] 18.1 kg/m2 MD Deangelo [facility] 11-17-2022 00:52-0400 Body weight 60.7 kg MD [facility] 11-17-2022 00:10-0400 Body height 182.88 cm MD [facility] 11-17-2022 00:10-0400 Body temperature 97.9 [degF] MD [facility] 11-17-2022 00:10-0400 Diastolic blood pressure 62 mm[Hg] MD [facility] 11-17-2022 00:10-0400 Systolic blood pressure 120 mm[Hg] MD [facility] 10-13-2022 06:21-0500 Diastolic blood pressure 90 mm[Hg] MD Bright [facility] 10-13-2022 06:21-0500 Systolic blood pressure 129 mm[Hg] MD [facility] 10-13-2022 03:49-0500 Body height 162.56 cm MD Bright [facility] 10-13-2022 03:49-0500 Body mass index (BMI) [Ratio] 24.4 kg/m2 MD [facility] 10-13-2022 03:49-0500 Body temperature 97.7 [degF] MD [facility] 10-13-2022 03:49-0500 Body weight 64.6 kg MD [facility] 10-13-2022 03:49-0500 Heart rate 120 /min MD [facility] 10-13-2022 03:49-0500 Respiratory rate 14 /min MD [facility] 10-13-2022 03:49-0500 SaO2% (BldA) [Mass fraction] 99 % MD Birght [facility] 08-24-2022 23:11-0500 Diastolic blood pressure 82 mm[Hg] MD [facility] 08-24-2022 23:11-0500 Heart rate 120 /min MD [facility] 08-24-2022 23:11-0500 SaO2% (BldA) [Mass fraction] 99 % MD [facility] 08-24-2022 23:11-0500 Systolic blood pressure 126 mm[Hg] MD [facility] 08-24-2022 21:15-0500 Body temperature 98 [degF] MD [facility] 08-24-2022 21:15-0500 Respiratory rate 16 /min MD [facility] 08-24-2022 21:12-0500 Body height 162.56 cm MD Bright [facility] 08-24-2022 21:12-0500 Body mass index (BMI) [Ratio] 24.7 kg/m2 MD [facility] 08-24-2022 21:12-0500 Body weight 65.4 kg MD Bright [facility] 08-20-2022 14:36-0500 Body temperature 97.8 [degF] MD [facility] 08-20-2022 14:36-0500 Diastolic blood pressure 77 mm[Hg] MD [facility] 08-20-2022 14:36-0500 Heart rate 108 /min MD Bright [facility] 08-20-2022 14:36-0500 Respiratory rate 16 /min MD [facility] 08-20-2022 14:36-0500 SaO2% (BldA) [Mass fraction] 97 % MD [facility] 08-20-2022 14:36-0500 Systolic blood pressure 111 mm[Hg] MD [facility] 08-20-2022 06:00-0500 Body weight 64.6 kg [facility] 08-19-2022 09:33-0500 Body height 182.88 cm [facility] Work Phone: 08-18-2022 15:00-0500 Inhaled oxygen flow rate 2 L/min [facility] 08-18-2022 11:46-0500 Body mass index (BMI) [Ratio] 20.3 kg/m2 MD [facility] 07-07-2022 20:35-0500 Diastolic blood pressure 93 mm[Hg] MD [facility] 07-07-2022 20:35-0500 Heart rate 114 /min MD Bright [facility] 07-07-2022 20:35-0500 Respiratory rate 15 /min MD [facility] 07-07-2022 20:35-0500 SaO2% (BldA) [Mass fraction] 96 % MD [facility] 07-07-2022 20:35-0500 Systolic blood pressure 127 mm[Hg] MD [facility] 07-07-2022 14:41-0500 Body mass index (BMI) [Ratio] 23.3 kg/m2 MD [facility] 07-07-2022 14:41-0500 Body temperature 98 [degF] MD [facility] 07-07-2022 14:41-0500 Body weight 69.42 kg MD Bright [facility] 07-01-2022 03:13-0500 Diastolic blood pressure 85 mm[Hg] MD [facility] 07-01-2022 03:13-0500 Heart rate 135 /min MD Bright [facility] 07-01-2022 03:13-0500 Respiratory rate 16 /min MD [facility] 07-01-2022 03:13-0500 SaO2% (BldA) [Mass fraction] 100 % MD [facility] 07-01-2022 03:13-0500 Systolic blood pressure 123 mm[Hg] MD [facility] 06-30-2022 22:31-0500 Body temperature 97.4 [degF] MD [facility] 06-30-2022 22:26-0500 Body height 177.8 cm [facility] Work Phone: 06-30-2022 22:26-0500 Body mass index (BMI) [Ratio] 23.1 kg/m2 MD [facility] 06-30-2022 22:26-0500 Body weight 73.3 kg MD [facility] 03-03-2022 08:30-0400 SaO2% (BldA) [Mass fraction] 98 % MD [facility] Work Phone: 03-03-2022 08:00-0400 Body temperature 97.9 [degF] [facility] Work Phone: 03-03-2022 08:00-0400 Diastolic blood pressure 67 mm[Hg] MD [facility] Work Phone: 03-03-2022 08:00-0400 Heart rate 101 /min MD Bright [facility] Work Phone: 03-03-2022 08:00-0400 Respiratory rate 18 /min MD [facility] Work Phone: 03-03-2022 08:00-0400 Systolic blood pressure 111 mm[Hg] MD [facility] Work Phone: 03-03-2022 05:12-0400 Body weight 56.8 kg MD [facility] Work Phone: 2022 15:50-0400 Body height 177.8 cm MD Bright [facility] Work Phone: 2022 12:30-0400 Body mass index (BMI) [Ratio] 17.9 kg/m2 MD Bright [facility] Work Phone: 2022 12:00-0400 Body temperature 97.7 [degF] [facility] Work Phone: 2022 12:00-0400 Diastolic blood pressure 93 mm[Hg] [facility] Work Phone: 2022 12:00-0400 Heart rate 160 /min [facility] Work Phone: 2022 12:00-0400 Respiratory rate 22 /min [facility] Work Phone: 2022 12:00-0400 SaO2% (BldA) [Mass fraction] 98 % [facility] Work Phone: 2022 12:00-0400 Systolic blood pressure 138 mm[Hg] [facility] Work Phone: 2022 10:13-0400 Body height 177.8 cm [facility] Work Phone: 2022 10:13-0400 Body mass index (BMI) [Ratio] 19.3 kg/m2 [facility] Work Phone: 2022 10:13-0400 Body weight 61.23 kg [facility] Work Phone: 01-31-2022 10:10-0400 Body height 177.8 cm [facility] Work Phone: 01-31-2022 10:10-0400 Body mass index (BMI) [Ratio] 18.6 kg/m2 [facility] Work Phone: 01-31-2022 10:10-0400 Body temperature 98 [degF] [facility] Work Phone: 01-31-2022 10:10-0400 Body weight 58.96 kg [facility] Work Phone: 01-31-2022 10:10-0400 Diastolic blood pressure 80 mm[Hg] [facility] Work Phone: 01-31-2022 10:10-0400 Heart rate 75 /min [facility] Work Phone: 01-31-2022 10:10-0400 Respiratory rate 16 /min [facility] Work Phone: 01-31-2022 10:10-0400 SaO2% (BldA) [Mass fraction] 99 % [facility] Work Phone: 01-31-2022 10:10-0400 Systolic blood pressure 92 mm[Hg] [facility] Work Phone: 01-19-2022 09:41-0400 Body mass index (BMI) [Ratio] 16.5 kg/m2 [facility] Work Phone: 01-19-2022 09:41-0400 Body temperature 97.9 [degF] [facility] Work Phone: 01-19-2022 09:41-0400 Body weight 52.16 kg [facility] Work Phone: 01-19-2022 09:41-0400 Diastolic blood pressure 70 mm[Hg] [facility] Work Phone: 01-19-2022 09:41-0400 Heart rate 106 /min [facility] Work Phone: 01-19-2022 09:41-0400 Respiratory rate 16 /min [facility] Work Phone: 01-19-2022 09:41-0400 SaO2% (BldA) [Mass fraction] 97 % [facility] Work Phone: 01-19-2022 09:41-0400 Systolic blood pressure 105 mm[Hg] [facility] Work Phone: 01-15-2017 03:55-0400 Body surface area Derived from formula 240.08 mL/min Ge Stafford MD [facility] Work Phone: 12-10-2016 16:10-0400 BP Diastolic 66 mm[Hg] Edwina Quintero NP [facility] Work Phone: 12-10-2016 16:10-0400 BP Systolic 104 mm[Hg] Edwina Quintero NP [facility] Work Phone: 12-10-2016 16:10-0400 Pulse (Heart Rate) 86 /min Edwina Quintero NP [facility] Work Phone: 12-10-2016 16:10-0400 Respiratory Rate 14 /min Edwina Quintero NP [facility] Work Phone: 12-10-2016 16:10-0400 Weight 67.13 kg Edwina Quintero NP [facility] Work Phone: 11-12-2016 15:36-0400 BMI (Body Mass Index) 24.79 kg/m2 Edwina Quintero COMPUTER PROGRAMMING SUPERVISOR [facility] Work Phone: 11-12-2016 15:36-0400 Body Temperature 98.01 [degF] Edwina Quintero COMPUTER PROGRAMMING SUPERVISOR [facility] Work Phone: 11-12-2016 15:36-0400 Body Temperature 98 [degF] Edwina Quintero COMPUTER PROGRAMMING SUPERVISOR [facility] Work Phone: 11-12-2016 15:36-0400 BP Diastolic 69 mm[Hg] Edwina Quintero COMPUTER PROGRAMMING SUPERVISOR [facility] Work Phone: 11-12-2016 15:36-0400 BP Systolic 105 mm[Hg] Edwina Quintero COMPUTER PROGRAMMING SUPERVISOR [facility] Work Phone: 11-12-2016 15:36-0400 BSA (Body Surface Area) 1.75 m2 Edwina Quintero COMPUTER PROGRAMMING SUPERVISOR [facility] Work Phone: 11-12-2016 15:36-0400 Height 165.1 cm Edwina Quintero COMPUTER PROGRAMMING SUPERVISOR [facility] Work Phone: 11-12-2016 15:36-0400 Pulse (Heart Rate) 90 /min Edwina Quintero NP [facility] Work Phone: 11-12-2016 15:36-0400 Pulse Oximetry 98 % Edwina Quintero NP [facility] Work Phone: 11-12-2016 15:36-0400 Respiratory Rate 14 /min Edwina Quintero COMPUTER PROGRAMMING SUPERVISOR [facility] Work Phone: 11-12-2016 15:36-0400 Weight 67.58 kg Edwina Ingrid COMPUTER PROGRAMMING SUPERVISOR [facility] Work Phone: 11-12-2016 15:36-0400 Weight 67.59 kg Edwina Belleliam COMPUTER PROGRAMMING SUPERVISOR [facility] Work Phone: Encounters Encounter Date Encounter Type Care Provider Facility Start: 02-27-2025 Evaluation and manag ement of inpatient Dr. Marcelina Erickson MD -Intensive Care Unit Work Phone: Start: 02-05-2025 End: 02-05-2025 ambulatory Sarah Oh Facility:[facility] Start: 02-05-2025 End: 02-05-2025 Evaluation and management of inpatient Dr. Sarah Oh MD -Intensive Care Unit Work Phone: Start: 01-26-2025 End: 01-26-2025 Emergency department patient visit Dr. Keisha Handy DO Work Phone: -Emergency Department Work Phone: Start: 12-18-2024 ambulatory Zebulun Beam VSC Facili ty:[facility] Start: 12-13-2024 End: 12-14-2024 Emergency [...] Work Phone: Start: 10-10-2024 End: 10-10-2024 ambulatory Facility:[facility] Start: 01-03-2023 End: 01-04-2023 Emergency department patient visit MD Deangelo Noel [facility]-Emergency Department Start: 12-09-2022 End: 12-09-2022 Emergency department patient visit MD Deangelo Noel [facility]Emergency Department Start: 12-03-2022 End: 12-03-2022 Emergency department patient visit MD Deangelo Noel [facility]Emergency Department Start: 11-17-2022 End: 11-17-2022 Emergency department patient visit MD Deangelo Noel [facility]-Emergency Department Start: 10-13-2022 Non-patient / Non-visit MD [facility] Start: 10-13-2022 End: 10-13-2022 ambulatory MD [facility] Work Phone: Start: 10-13-2022 End: 10-13-2022 Patient encounter procedure MD [facility] Start: 10-13-2022 End: 10-13-2022 Emergency department [facility] Start: 10-05-2022 Orders Only Deangelo garcía MD Work Phone: [facility] Start: 10-03-2022 Telephone encounter Deangelo canales MD Work Phone: [facility] Comment on above: Letter Start: 09-22-2022 Telephone encounter Phillip jiménez APRN.[employer] Work Phone: [facility] Comment on above: Appointment Start: 08-24-2022 End: 08-24-2022 Emergency department patient visit [facility] Start: 08-21-2022 Refill Phillip HINOJOSA RN.[employer] Work Phone: [facility] Comment on above: Refill Request Start: 08-20-2022 Non-patient / Non-visit MD Deangelo lowry [facility] Start: 08-19-2022 Non-patient / Non-visit [facility] Start: 08-18-2022 Non-patient / Non-visit [facility] Start: 08-18-2022 End: 08-20-2022 Evaluation and management of inpatient MD [facility] 2 Start: 07-09-2022 Telephone encounter Deangelo canales MD Work Phone: [facility] Comment on above: Insurance Authorizat ion ([employer] ) Start: 07-07-2022 End: 07-07-2022 Emergency department patient visit MD [facility] Start: 07-07-2022 End: 07-07-2022 Patient encounter procedure Isaiah Caldera APRN.[employer] Work Phone: [facility] Comment on above: Chest pain, unspecif ied type (Primary Dx); High blood sugar APPOINTMENT CANCELLE D (Primary Dx); Uncontrolled type 1 diabetes mellitus with hypoglycemia without coma (HCC); Type I (juvenile type) diabetes mellitus without mention of complication, not stated as uncontrolled (HCC) Start: 06-30-2022 End: 07-01-2022 Emergency department patient visit MD [facility] Start: 06-11-2022 Telephone encounter Deangelo canales MD Work Phone: [facility] Comment on above: Results Start: 06-09-2022 Telephone encounter Deangelo canales MD Work Phone: [facility] Comment on above: Urgent value Start: 06-07-2022 Telephone encounter Radha Hameed APRN.[employer] Work Phone: [facility] Comment on above: Medication Problem Refill Request Start: 03-04-2022 Patient Outreach Meena alexandra APRN.[employer] Work Phone: [facility] Comment on above: Transition Of Care Start: 03-03-2022 Non-patient / Non-visit [facility] Start: 2022 Non-patient / Non-visit MD Deangelo lowry [facility] Start: 2022 End: 03-03-2022 Evaluation and management of inpatient [facility]-Intensive Care Unit Start: 01-31-2022 End: 01-31-2022 Emergency department patient visit [facility]Emergency Department Start: 01-19-2022 End: 01-19-2022 [facility] Start: 11-17-2021 ambulatory Phillip HINOJOSA RN.[employer] SAL[employer] Work Phone: [facility] Comment on above: PHMA/Care Gap Outrea ch Start: 06-26-2021 Telephone encounter Deangelo canales MD Work Phone: [facility] Comment on above: Insurance Authorizat ion Start: 04-21-2018 End: 04-22-2018 Patient encounter AUBREY DUNCAN [facility] Start: 03-20-2018 End: 03-23-2018 Evaluation and management of inpatient GLO KOENIG [facility] Start: 01-13-2018 End: 01-14-2018 Ambulatory [facility] Start: 12-27-2017 End: 12-27-2017 Ambulatory RON [facility] Start: 12-21-2017 End: 12-22-2017 Ambulatory RON Rodgers [facility] Start: 12-17-2017 End: 12-18-2017 Ambulatory RON Rodgers [facility] Start: 12-17-2017 End: 12-17-2017 Ambulatory [facility] Start: 12-10-2017 End: 12-11-2017 Ambulatory [facility] Start: 11-20-2017 End: 12-06-2017 Evaluation and management of inpatient [facility] Procedures Date Procedure Procedure Detail Performing Clinician Start: 02-27-2025 Urnls dip stick/tabl et reagent auto microscopy No Primary Care Physician Start: 02-27-2025 Estimated creatinine clearance No Primary Care Physician Start: 02-05-2025 Bacterial nucleic ac id assay Dr. Keisha Handy DO Work Phone: Start: 02-05-[address] Keisha Handy DO Work Phone: Start: 02-05-2025 Lymphocyte percent differential count Dr. Keisha Handy DO Work Phone: Start: 02-05-2025 Urnls dip stick/tabl et reagent auto microscopy Dr. Keisha Handy DO Work Phone: Start: 02-05-[address] Keisha Handy DO Work Phone: Start: 02-05-2025 Serum inorganic phos phate measurement Dr. Keisha Handy DO Work Phone: Start: 01-26-2025 Methadone measuremen t, urine Dr. [...] Start: 01-03-2023 Plain chest X-ray MD Lior Noel OLS Start: 12-09-2022 Plain chest X-ray MD Lior Noel [facility] Start: 12-03-2022 CT angiography of ch est with contrast MD Deangelo Noel [facility] Start: 12-03-2022 Plain chest X-ray MD Lior Noel [facility] Start: 11-17-2022 CT angiography of ch est with contrast MD Deangelo Noel O[facility] Start: 11-17-2022 Plain chest X-ray MD Lior Noel OLS Start: 10-13-2022 Plain chest X-ray MD Lior Noel Start: 08-18-2022 Plain chest X-ray MD Lior Noel Start: 07-07-2022 Plain chest X-ray MD Lior Noel Start: 06-30-2022 Plain chest X-ray MD Lior Noel Start: 01-19-2022 Plain X-ray of tibia and fibula Start: 06-22-2018 Adult depression scr eening assessment Phillip Howe 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.[employer] Work Phone: Start: 11-12-2016 End: 11-12-2016 *Microalbumin, Creatine Ratio, rand urine Edwina Quintero COMPUTER PROGRAMMING SUPERVISOR Work Phone: Start: 11-12-2016 End: 11-13-2016 HbA1c Edwina Quintero COMPUTER PROGRAMMING SUPERVISOR Work Phone: Respiratory Panel (PCR) MD [...] profile DTAP,TDAP,TD (8 - Td or Tdap) [facility] Start: 02-27-2025 Following clinical pathway protocol [facility] Start: 02-27-2025 Gas panel - Venous blood [facility] Start: 02-27-2025 Verification routine [facility] Start: 02-27-2025 Admission procedure [facility] Start: 02-27-2025 Hospital admission, emergency, from emergency room, medical nature [facility] Start: 02-05-2025 Patient discharge [facility] Start: 02-05-2025 End: 02-05-2025 [facility] Start: 02-05-2025 Care regimes management [facility] Start: 02-05-2025 Notification of physician [facility] Start: 02-05-2025 Assessment of risk of venous thromboembolism [facility] Start: 02-05-2025 Continuous pulse oximetry [facility] Start: 02-05-2025 End: 02-05-2025 Following clinical pathway protocol [facility] Start: 02-05-2025 Incentive spirometry [facility] Start: 02-05-2025 Inhalation therapy procedure [facility] Start: 02-05-2025 Insertion of catheter into peripheral vein [facility] Start: 02-05-2025 Introduction of urinary catheter [facility] Start: 02-05-2025 Lab findings surveillance [facility] Start: 02-05-2025 Measuring intake and output [facility] Start: 02-05-2025 Notification of physician [facility] Start: 02-05-2025 Oxygen therapy [facility] Start: 02-05-2025 Patient education [facility] Start: 02-05-2025 Patient referral to dietitian [facility] Start: 02-05-2025 Providing care according to standard [facility] Start: 02-05-2025 Provision of activity privileges [facility] Start: 02-05-2025 Referral to service [facility] Start: 02-05-2025 Tobacco use cessation education [facility] Start: 02-05-2025 Vital signs measurements [facility] Start: 02-05-2025 [facility] Start: 02-05-2025 Admission procedure [facility] Start: 02-05-2025 Hospital admission, emergency, from emergency room, medical nature [facility] Start: 02-05-2025 Verification routine [facility] Start: 02-05-2025 Serum inorganic phosphate measurement [facility] Start: 01-26-2025 [facility] Start: 01-26-2025 [facility] Start: 12-14-2024 [facility] Start: 12-12-2024 [facility] Start: 11-11-2024 [facility] Start: 10-19-2024 [facility] Start: 10-19-2024 [facility] Start: 08-25-2023 ANNUAL PCP TEAM CHRONIC DISEASE VISIT ANNUAL PCP TEAM CHRONIC DISEASE VISIT [facility] Start: 07-07-2023 ANNUAL PCP TEAM CHRONIC DISEASE VISIT ANNUAL PCP TEAM CHRONIC DISEASE VISIT [facility] Start: 06-09-2023 ANNUAL PCP TEAM CHRONIC DISEASE VISIT ANNUAL PCP TEAM CHRONIC DISEASE VISIT [facility] Start: 06-09-2023 Hepatitis B surface antibody level LDL CHOLESTEROL [facility] Start: 01-03-2023 [facility] Start: 12-09-2022 [facility] Start: 12-04-2022 [facility] Start: 12-03-2022 [facility] Start: 11-18-2022 [facility] Start: 11-17-2022 [facility] Start: 10-13-2022 Assay of troponin quantitative ASSAY OF TROPONIN QUANT [facility] Start: 10-13-2022 Basic metabolic panel calcium total METABOLIC PANEL TOTAL CA [facility] Start: 10-13-2022 Blood count complete auto&auto difrntl wbc COMPLETE CBC W/AUTO DIFF WBC [facility] Start: 10-13-2022 Ecg routine ecg w/least 12 lds trcg only w/o i&r ELECTROCARDIOGRAM TRACING [facility] Start: 10-13-2022 Iv infusion hydration each additional hour HYDRATE IV INFUSION ADD-ON [facility] Start: 10-13-2022 Iv infusion hydration initial 31 min-1 hour HYDRATION IV INFUSION INIT [facility] Start: 10-13-2022 Radiologic exam chest single view X-RAY EXAM CHEST 1 VIEW [facility] Start: 09-09-2022 Hemoglobin A1c/Hemoglobin.total in Blood HBA1C [facility] Start: 08-20-2022 Patient discharge [facility] Start: 08-19-2022 Care planning and problem solving actions [facility] Start: 08-19-2022 Care regimes management [facility] Start: 08-19-2022 Notification of physician [facility] Start: 08-19-2022 [facility] Start: 08-18-2022 End: 08-19-2022 [facility] Start: 08-18-2022 Ambulation without limitation [facility] Start: 08-18-2022 Assessment of risk of venous thromboembolism [facility] Start: 08-18-2022 Continuous pulse oximetry [facility] Start: 08-18-2022 End: 08-18-2022 Following clinical pathway protocol [facility] Start: 08-18-2022 Inhalation therapy procedure [facility] Start: 08-18-2022 Insertion of catheter into peripheral vein [facility] Start: 08-18-2022 Lab findings surveillance [facility] Start: 08-18-2022 Measuring intake and output [facility] Start: 08-18-2022 Notification of physician [facility] Start: 08-18-2022 Patient education [facility] Start: 08-18-2022 Patient referral to dietitian [facility] Start: 08-18-2022 Providing care according to standard [facility] Start: 08-18-2022 Vital signs measurements [facility] Start: 08-18-2022 Admission procedure [facility] Start: 08-09-2022 DEPRESSION ASSESSMENT DEPRESSION ASSESSMENT [facility] Start: 07-07-2022 [facility] Start: 06-30-2022 [facility] Start: 06-25-2022 ANNUAL PCP TEAM CHRONIC DISEASE VISIT ANNUAL PCP TEAM CHRONIC DISEASE VISIT [facility] Start: 04-09-2022 Influenza vaccination INFLUENZA (#1) [facility] Start: 03-03-2022 Patient discharge [facility] Work Phone: Start: 03-03-2022 Care regimes management [facility] Work Phone: Start: 03-03-2022 Notification of physician [facility] Work Phone: Start: 03-03-2022 Patient referral to dietitian [facility] Work Phone: Start: 03-03-2022 [facility] Work Phone: Start: 2022 [facility] Work Phone: Start: 2022 Application of intermittent pneumatic compression device [facility] Work Phone: Start: 2022 Assessment of risk of venous thromboembolism [facility] Work Phone: Start: 2022 Continuous pulse oximetry [facility] Work Phone: Start: 2022 End: 2022 Following clinical pathway protocol [facility] Work Phone: Start: 2022 Insertion of catheter into peripheral vein [facility] Work Phone: Start: 2022 Lab findings surveillance [facility] Work Phone: Start: 2022 Measuring intake and output [facility] Work Phone: Start: 2022 Notification of physician [facility] Work Phone: Start: 2022 Patient education [facility] Work Phone: Start: 2022 Patient referral to dietitian [facility] Work Phone: Start: 2022 Providing care according to standard [facility] Work Phone: Start: 2022 Vital signs measurements [facility] Work Phone: Start: 2022 [facility] Work Phone: Start: 2022 Blood chemistry [facility] Work Phone: Start: 2022 Verification routine [facility] Work Phone: Start: 2022 Admission procedure [facility] Work Phone: Start: 2022 Urinalysis complete panel - Urine [facility] Work Phone: Start: 2022 End: 2022 [facility] Work Phone: Start: 2022 [facility] Work Phone: Start: 01-08-2022 Hepatitis B screening URINE ALBUMIN:CREATININE RATIO [facility] Start: 01-08-2022 Hepatitis B surface antibody level LDL CHOLESTEROL [facility] Start: 11-17-2021 End: 01-17-2022 ALBUMIN/CREAT RATIO RND UR ALBUMIN/CREAT RATIO RND UR Lab Routine Uncontrolled type 1 diabetes mellitus with hypoglycemia without coma (HCC) Expected: 11/17/2021, Expires: 01/17/2022 [facility] Work Phone: Comment on above: Expected: 11/17/2021, Expires: 2 Start: 08-09-2021 DEPRESSION ASSESSMENT DEPRESSION ASSESSMENT [facility] Start: 04-10-2021 Hemoglobin A1c/Hemoglobin.total in Blood HBA1C [facility] Start: 09-22-2020 3 comp foot exam completed DIABETIC FOOT EXAM [facility] Start: 06-22-2019 Adult depression screening assessment DEPRESSION SCREENING [facility] Start: 05-11-2017 Hepatitis C antibody, confirmatory test DILATED RETINAL EXAM [facility] Start: 03-15-2017 End: 03-15-2017 Appointment Appointment [facility] Work Phone: Start: 03-15-2017 End: 03-15-2017 Appointment Appointment [facility] Work Phone: Start: 12-10-2016 End: 12-10-2016 Appointment Appointment [facility] Work Phone: Start: 12-10-2016 End: 12-12-2016 *CMP Complete Metabolic Panel *CMP Complete Metabolic Panel [facility] Work Phone: Start: 12-10-2016 End: 12-12-2016 HbA1c *HgA1C [facility] Work Phone: Start: 12-10-2016 End: 12-12-2016 Lipid panel [AGGREGATE] *Lipid Profile [facility] Work Phone: Start: 12-10-2016 End: 12-12-2016 Office/outpatient visit, est, level 3 19991-Tte Vst-Est Level III [facility] Work Phone: Start: 11-12-2016 End: 11-12-2016 *CMP Complete Metabolic Panel *CMP Complete Metabolic Panel [facility] Work Phone: Start: 11-12-2016 End: 11-12-2016 *Microalbumin, Creatine Ratio, rand urine *Microalbumin, Creatine Ratio, rand urine [facility] Work Phone: Start: 11-12-2016 End: 11-13-2016 [facility]1c [facility] Work Phone: Start: 11-12-2016 End: 11-12-2016 Lipid panel [AGGREGATE] *Lipid Profile [facility] Work Phone: Start: 2015 HEPATITIS C SCREENING HEPATITIS C SCREENING [facility] Start: 2015 HIV SCREENING HIV SCREENING [facility] Start: 10-10-2013 PNEUMOCOCCAL (2 - PPSV23 if available, else PCV20) PNEUMOCOCCAL (2 - PPSV23 if available, else PCV20) [facility] Start: 10-10-2013 PNEUMOCOCCAL (2 - PPSV23 or PCV20) PNEUMOCOCCAL (2 - PPSV23 or PCV20) [facility] Start: 10-02-2013 HPV VACCINE (3 - Male 3-dose series) HPV VACCINE (3 - Male 3-dose series) [facility] Start: 2013 ONE PNEUMOVAX PRIOR TO AGE 65 ONE PNEUMOVAX PRIOR TO AGE 65 [facility] Start: 12-05-2012 PNEUMOCOCCAL (2 - PPSV23 if available, else PCV20) PNEUMOCOCCAL (2 - PPSV23 if available, else PCV20) [facility] Start: 2011 PEDS TO ADULT TRANSITION ANNUAL ASSESSMENT PEDS TO ADULT TRANSITION ANNUAL ASSESSMENT [facility] Start: 2009 PEDS TO ADULT TRANSITION INITIAL DISCUSSION PEDS TO ADULT TRANSITION INITIAL DISCUSSION [facility] Start: 2007 MENINGOCOCCAL B: Consider based on risk (1 of 2 - Risk Bexsero 2-dose series) MENINGOCOCCAL B: Consider based on risk (1 of 2 - Risk Bexsero 2-dose series) [facility] Start: 2002 COVID-19 VACCINE (1) COVID-19 VACCINE (1) [facility] Start: 1997 COVID-19 VACCINE (#1) COVID-19 VACCINE (#1) [facility] Anion gap in Serum o r Plasma [facility] Anion gap in Serum o r Plasma [facility] Anion gap measurement [facility] Work Phone: Beta hydroxybutyrate [Mass/volume] in Serum or Plasma [facility] Beta hydroxybutyrate [Mass/volume] in Serum or Plasma [facility] Bilirubin measuremen t, urine [facility] BUN/Creatinine ratio [facility] Work Phone: BUN/Creatinine ratio [facility] BUN/Creatinine ratio [facility] Calcium [Mass/volume ] in Serum or Plasma [facility] Work Phone: Calcium [Mass/volume ] in Serum or Plasma [facility] Calcium [Mass/volume ] in Serum or Plasma [facility] Carbon dioxide, tota l [Moles/volume] in Central venous blood [facility] Carbon dioxide, tota l [Moles/volume] in Central venous blood [facility] Carbon dioxide, tota l [Moles/volume] in Serum or Plasma [facility] Work Phone: Chloride [Moles/volu me] in Serum or Plasma [facility] Work Phone: Creatinine [Mass/volume] in Serum or Plasma [facility] Creatinine [Mass/volume] in Serum or Plasma [facility] Creatinine [Moles/volume] in Serum or Plasma [facility] Work Phone: Erythrocyte mean corpuscular volume determination [facility] Glucose [Mass/volume ] in Serum or Plasma [facility] Work Phone: Glucose [Mass/volume ] in Serum or Plasma [facility] Glucose [Mass/volume ] in Serum or Plasma [facility] Hematocrit [Volume Fraction] of Blood [facility] Hemoglobin [Mass/volume] in Blood [facility] Hemoglobin [Presence ] in Urine [facility] Leukocytes [#/volume ] in Blood [facility] Magnesium measurement [facility] Mean corpuscular hemoglobin concentration determination [facility] Mean corpuscular hemoglobin determination [facility] Measurement of keton es in urine using dipstick [facility] Measurement of renal function [facility] Work Phone: Measurement of renal function [facility] Measurement of renal function [facility] Microscopic urinalysis [facility] Neutrophil count [facility] Neutrophil percent differential count [facility] Organism count, microscopic method [facility] Patient Education [facility] Work Phone: Patient referral [facility] Work Phone: pH of Urine [facility] Platelets [#/volume] in Blood [facility] Potassium [Moles/volume] in Serum or Plasma [facility] Work Phone: Potassium measurement [facility] Potassium measurement [facility] Red blood cell count [facility] Red cell distributio n width determination [facility] Serum chloride measurement [facility] Serum chloride measurement [facility] Sodium [Moles/volume ] in Serum or Plasma [facility] Work Phone: Sodium measurement [facility] Sodium measurement [facility] Specific gravity of Urine [facility] Urea nitrogen [Mass/volume] in Serum or Plasma [facility] Work Phone: Urea nitrogen [Mass/volume] in Serum or Plasma [facility] Urea nitrogen [Mass/volume] in Serum or Plasma [facility] Urine dipstick for glucose [facility] Urine dipstick for leukocyte esterase [facility] Urine dipstick for nitrite [facility] Urine dipstick for protein [facility] Urine examination [facility] Urine microscopy: epithelial cells [facility] Urine microscopy: re d cells [facility] Urobilinogen [Presen ce] in Urine [facility] White blood cell count [facility] Immunizations Immunization Date Immunization Notes Care Provider Franco kiran 06-09-2022 influenza, injectabl e, quadrivalent, contains preservative Deangelo Noel MD Work Phone: [facility] 06-25-2021 influenza, injectabl e, quadrivalent, contains preservative Phillip Charles 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 Work Phone: [facility] 10-01-2020 tetanus toxoid, reduced diphtheria toxoid, and acellular pertussis vaccine, adsorbed Phillip Charles 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 Work Phone: [facility] 06-28-2019 influenza, injectabl e, quadrivalent, contains preservative Phillip Charles 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 Work Phone: [facility] 11-20-2017 tetanus toxoid, reduced diphtheria toxoid, and acellular pertussis vaccine, adsorbed [facility] 05-18-2017 influenza, injectabl e, quadrivalent, preservative free Dr. Keisha Handy DO Work Phone: [facility] 05-18-2017 influenza, seasonal, injectable [facility] 08-28-2015 influenza, injectabl e, quadrivalent, preservative free Phillip Charles 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 Work Phone: [facility] 08-09-2015 influenza, injectabl e, quadrivalent, preservative free Dr. Keisha Handy DO Work Phone: [facility] 08-09-2015 influenza, seasonal, injectable [facility] 06-13-2014 influenza, seasonal, injectable Phillip Charles 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 Work Phone: [facility] 06-01-2013 human papilloma viru s vaccine, quadrivalent Phillip Charles 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 Work Phone: [facility] Work Phone: 06-01-2013 influenza virus vaccine, unspecified formulation Phillip Charles 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 Work Phone: [facility] Work Phone: 06-01-2013 Meningococcal, MCV4, unspecified conjugate formulation(groups A, C, Y and W-135) Phillip Charles 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 Work Phone: [facility] Work Phone: 10-10-2012 human papilloma viru s vaccine, quadrivalent Phillip Charles 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 Work Phone: [facility] 10-10-2012 pneumococcal conjuga te vaccine, 13 valent Phillip Charles 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 Work Phone: [facility] 06-03-2010 influenza virus vaccine, unspecified formulation Phillip Charles 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 [facility] [employer] Work Phone: [facility] 01-02-2009 Meningococcal, MCV4, unspecified conjugate formulation(groups A, C, Y and W-135) Phillip Charles 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 Work Phone: [facility] Work Phone: 01-02-2009 tetanus toxoid, reduced diphtheria toxoid, and acellular pertussis vaccine, adsorbed Phillip Charles 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 Work Phone: [facility] Work Phone: 06-17-2007 influenza virus vaccine, unspecified formulation Phillip Charles 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 Work Phone: [facility] Work Phone: 06-28-2003 diphtheria, tetanus toxoids and pertussis vaccine Phillip Charles 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 Work Phone: [facility] Work Phone: 06-28-2003 poliovirus vaccine, inactivated Phillip Charles 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 Work Phone: [facility] Work Phone: 04-24-2002 hepatitis B vaccine, pediatric or pediatric/adolescent dosage Phillip Charles 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 Work Phone: [facility] Work Phone: 04-24-2002 measles, mumps and rubella virus vaccine Phillip Charles 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 Work Phone: [facility] Work Phone: 03-18-2000 diphtheria, tetanus toxoids and pertussis vaccine Phillip Charles 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 Work Phone: [facility] Work Phone: 03-18-2000 haemophilus influenz ae type b vaccine, HbOC conjugate Phillip Charles 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.[facility] Work Phone: [facility] Work Phone: 03-18-2000 hepatitis B vaccine, pediatric or pediatric/adolescent dosage Phillip Charles 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.[facility] Work Phone: [facility] Work Phone: 03-18-2000 poliovirus vaccine, inactivated Phillip Charles 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.[facility] Work Phone: [facility] Work Phone: 06-10-1998 measles, mumps and rubella virus vaccine Phillip Charles 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 Work Phone: [facility] Work Phone: 1997 diphtheria, tetanus toxoids and pertussis vaccine Phillip Charles 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.[facility] Work Phone: [facility] Work Phone: 1997 haemophilus influenz ae type b vaccine, HbOC conjugate Phillip Charles 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.[facility] Work Phone: [facility] Work Phone: 1997 diphtheria, tetanus toxoids and pertussis vaccine Phillip Charles 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 Work Phone: [facility] Work Phone: 1997 haemophilus influenz ae type b vaccine, HbOC conjugate Phillip Charles 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 Work Phone: [facility] Work Phone: 1997 poliovirus vaccine, inactivated Phillip Charles 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.[facility] Work Phone: [facility] Work Phone: 1997 diphtheria, tetanus toxoids and pertussis vaccine Phillip Charles 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 Work Phone: [facility] Work Phone: 1997 haemophilus influenz ae type b vaccine, HbOC conjugate Phillipgeronimo Howe 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 Work Phone: [facility] Work Phone: 1997 hepatitis B vaccine, pediatric or pediatric/adolescent dosage Phillipgeronimo Howe 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 Work Phone: [facility] Work Phone: 1997 poliovirus vaccine, inactivated Phillipgeronimo Howe 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 Work Phone: [facility] Work Phone: Payers Date Payer Category Payer Self-pay [id number] 2024 Medicaid [id number] 2021 Medicaid [employer] [place] [employer] [id number] 2021-[facility] [phone] [address] [place] [address] Medicaid [id number] 2021 Medicaid [id number] Medicaid [id number] Medicaid [id number] Unknown [id number] Unknown [id number] Unknown [id number] Unknown [id number] Unknown [id number] Unknown [id number] Unknown [id number] Unknown [id number] Social History Date Type Detail Facility Start: 06-22-2018 End: 06-09-2022 Tobacco smoking status NHIS Never smoked tobacco [facility] History of tobacco use Cigarette Smoker [facility] History of tobacco use Cigar Smoker [facility] Start: 06-22-2018 End: 06-09-2022 Cigarettes smoked current (pack per day) - Reported 1 [facility] Start: 06-22-2018 End: 06-09-2022 Tobacco use and exposure User of smokeless tobacco [facility] History of tobacco use Chews Tobacco [facility] Start: 09-18-2021 End: 08-25-2022 Alcohol intake Current drinker of alcohol (finding) [facility] Start: 04-12-2018 History SDOH Alcohol Comment once a year [facility] Start: 05-11-2018 Education 13 [facility] Start: 08-28-2015 End: 06-09-2022 Tobacco Comment dad smokes inside and outside. Dad trying to quit. patient chews and smokes also [facility] Start: 1997 Sex Assigned At Not on file [facility] Start: 08-19-2021 End: 06-09-2022 Exposure to SARS-CoV-2 (event) Not sure [facility] Start: 01-31-2022 End: 01-03-2023 Tobacco smoking status NHIS Unknown if ever smoked [facility] Start: 11-25-2020 None [facility] Start: 11-25-2020 With Family [facility] Start: 11-25-2020 Cigarettes;Chew [facility] Start: 1997 Sex Assigned At Male W [facility] Start: 02-21-2022 End: 03-03-2022 Exposure to SARS-CoV-2 (event) Unable to assess [facility] Work Phone: Start: 10-19-2024 End: 02-27-2025 Tobacco smoking status NHIS Current some day smoker [facility] Start: 10-19-2024 End: 11-11-2024 Sex Male (finding) [facility] Medical Equipment Procedure Code Equipment Code Equipment Original Text Equipment Identifier Dates INSULIN PEN NEEDLE [id number] Start: 01-16-2014 End: 07-07-2022 Comment on above: [...] 12-23-2017 Pen Needle, Diabetic (Comfort [place]) 31 gauge x 5/16 needle Start: 12-22-2017 End: 12-23-2017 Pen Needle, Diabetic (Comfort [place]) 31 gauge x 5/16 needle Start: 12-23-2017 End: 12-23-2017 Blood Sugar Diagnostic (Freestyle Lite Strips) strip Start: 12-23-2017 End: 12-23-2017 Pen Needle, Diabetic (Comfort [place]) 31 gauge x 5/16 needle Start: 12-22-2017 End: 12-23-2017 Pen Needle, Diabetic (Comfort [place]) 31 gauge x 5/16 needle Start: 12-23-2017 End: 12-23-2017 Blood Sugar Diagnostic (Freestyle Lite Strips) strip Start: 12-23-2017 End: 12-23-2017 Pen Needle, Diabetic ([place]fort [place]) 31 gauge x 5/16 needle Start: 12-22-2017 End: 12-23-2017 Pen Needle, Diabetic (Comfort [place]) 31 gauge x 5/16 needle Start: 12-23-2017 End: 12-23-2017 Blood Sugar Diagnostic (Freestyle Lite Strips) strip Start: 12-23-2017 End: 12-23-2017 Pen Needle, Diabetic (Comfort [place]) 31 gauge x 5/16 needle Start: 12-22-2017 End: 12-23-2017 Pen Needle, Diabetic (Comfort [place]) 31 gauge x 5/16 needle Start: 12-23-2017 End: 12-23-2017 Blood Sugar Diagnostic (Freestyle Lite Strips) strip Start: 12-23-2017 End: 12-23-2017 Pen Needle, Diabetic (Comfort [place]) 31 gauge x 5/16 needle Start: 12-22-2017 End: 12-23-2017 Pen Needle, Diabetic ([place]fort [place]) 31 gauge x 5/16 needle Start: 12-23-2017 End: 12-23-2017 Blood Sugar Diagnostic (Freestyle Lite Strips) strip Start: 12-23-2017 End: 12-23-2017 Pen Needle, Diabetic (Comfort [place]) 31 gauge x 5/16 needle Start: 12-22-2017 End: 12-23-2017 Pen Needle, Diabetic (Comfort [place]) 31 gauge x 5/16 needle Start: 12-23-2017 End: 12-23-2017 Blood Sugar Diagnostic (Freestyle Lite Strips) strip Start: 12-23-2017 End: 12-23-2017 Pen Needle, Diabetic ([place]fort [place]) 31 gauge x 5/16 needle Start: 12-22-2017 End: 12-23-2017 Pen Needle, Diabetic (Comfort [place]) 31 gauge x 5/16 needle Start: 12-23-2017 End: 12-23-2017 Blood Sugar Diagnostic (Freestyle Lite Strips) strip Start: 12-23-2017 End: 12-23-2017 Pen Needle, Diabetic (Comfort [place]) 31 gauge x 5/16 needle Start: 12-22-2017 End: 12-23-2017 Pen Needle, Diabetic (Comfort [place]) 31 gauge x 5/16 needle Start: 12-23-2017 End: 12-23-2017 Blood Sugar Diagnostic (Freestyle Lite Strips) strip Start: 12-23-2017 End: 12-23-2017 Pen Needle, Diabetic (Comfort [place]) 31 gauge x 5/16 needle Start: 12-22-2017 End: 12-23-2017 Pen Needle, Diabetic (Comfort [place]) 31 gauge x 5/16 needle Start: 12-23-2017 End: 12-23-2017 Blood Sugar Diagnostic (Freestyle Lite Strips) strip Start: 12-23-2017 End: 12-23-2017 Pen Needle, Diabetic (Comfort [place]) 31 gauge x 5/16 needle Start: 12-22-2017 End: 12-23-2017 Pen Needle, Diabetic (Comfort [place]) 31 gauge x 5/16 needle Start: 12-23-2017 End: 12-23-2017 Blood Sugar Diagnostic (Freestyle Lite Strips) strip Start: 12-23-2017 End: 12-23-2017 Pen Needle, Diabetic (Comfort [place]) 31 gauge x 5/16 needle Start: 12-22-2017 End: 12-23-2017 Pen Needle, Diabetic (Comfort [place]) 31 gauge x 5/16 needle Start: 12-23-2017 End: 12-23-2017 Blood Sugar Diagnostic (Freestyle Lite Strips) strip Start: 12-23-2017 End: 12-23-2017 Pen Needle, Diabetic (Comfort [place]) 31 gauge x 5/16 needle Start: 12-22-2017 End: 12-23-2017 Pen Needle, Diabetic (Com[place]) 31 gauge x 5/16 needle Start: 12-23-2017 End: 12-23-2017 Insulin Syringe-Needle U-100 [Insulin Syringe-Needle U-100 0.5 Ml 31 Gauge X 5/16] (Insulin Syringe-Needle U-100 0.5 Ml 31 Gauge X ) 0.5 mL 31 gauge x 5/16 syringe Start: 10-19-2024 Blood Sugar Diagnostic (Freestyle Lite Strips) strip Start: 12-23-2017 End: 12-23-2017 Pen Needle, Diabetic (Comfort [place]) 31 gauge x 5/16 needle Start: 12-22-2017 End: 12-23-2017 Pen Needle, Diabetic (Com[place]) 31 gauge x 5/16 needle Start: 12-23-2017 End: 12-23-2017 Insulin Syringe-Needle U-100 [Insulin Syringe-Needle U-100 0.5 Ml 31 Gauge X 5/16] (Insulin Syringe-Needle U-100 0.5 Ml 31 Gauge X ) 0.5 mL 31 gauge x 5/16 syringe Start: 10-19-2024 Blood Sugar Diagnostic (Freestyle Lite Strips) strip Start: 12-23-2017 End: 12-23-2017 Pen Needle, Diabetic ([place]fort [place]) 31 gauge x 5/16 needle Start: 12-22-2017 End: 12-23-2017 Pen Needle, Diabetic (Com[place]) 31 gauge x 5/16 needle Start: 12-23-2017 End: 12-23-2017 Insulin Syringe-Needle U-100 (Trueplus Insulin) 0.5 mL 31 gauge x 5/16 syringe Start: 10-19-2024 Blood Sugar Diagnostic (Freestyle Lite Strips) strip Start: 12-23-2017 End: 12-23-2017 Pen Needle, Diabetic ([place]) 31 gauge x 5/16 needle Start: 12-22-2017 End: 12-23-2017 Pen Needle, Diabetic ([place]) 31 gauge x 5/16 needle Start: 12-23-2017 End: 12-23-2017 Insulin Syringe-Needle U-100 (Trueplus Insulin) 0.5 mL 31 gauge x 5/16 syringe Start: 10-19-2024 Blood Sugar Diagnostic (Freestyle Lite Strips) strip Start: 12-23-2017 End: 12-23-2017 Pen Needle, Diabetic ([place]) 31 gauge x 5/16 needle Start: 12-22-2017 End: 12-23-2017 Pen Needle, Diabetic ([place]) 31 gauge x 5/16 needle Start: 12-23-2017 End: 12-23-2017 Insulin Syringe-Needle U-100 (Trueplus Insulin) 0.5 mL 31 gauge x 5/16 syringe Start: 10-19-2024 Blood Sugar Diagnostic (Freestyle Lite Strips) strip Start: 12-23-2017 End: 12-23-2017 Pen Needle, Diabetic ([place]) 31 gauge x 5/16 needle Start: 12-22-2017 End: 12-23-2017 Pen Needle, Diabetic ([place]) 31 gauge x 5/16 needle Start: 12-23-2017 End: 12-23-2017 Insulin Syringe-Needle U-100 (Trueplus Insulin) 0.5 mL 31 gauge x 5/16 syringe Start: 10-19-2024 Blood Sugar Diagnostic (Freestyle Lite Strips) strip Start: 12-23-2017 End: 12-23-2017 Pen Needle, Diabetic ([place]) 31 gauge x 5/16 needle Start: 12-22-2017 End: 12-23-2017 Pen Needle, Diabetic (Com[place]) 31 gauge x 5/16 needle Start: 12-23-2017 End: 12-23-2017 Insulin Syringe-Needle U-100 (Trueplus Insulin) 0.5 mL 31 gauge x 5/16 syringe Start: 10-19-2024 Blood Sugar Diagnostic (Freestyle Lite Strips) strip Start: 12-23-2017 End: 12-23-2017 Pen Needle, Diabetic (Com[place]) 31 gauge x 5/16 needle Start: 12-22-2017 End: 12-23-2017 Pen Needle, Diabetic (Comfort [place]) 31 gauge x 5/16 needle Start: 12-23-2017 End: 12-23-2017 Goals Date Patient Goal Desired Activity /State Functional Status Date Assessment Result Facility 02-05-2025 Functional status Ambulates;Chair [facility] Work Phone: 08-20-2022 Functional status Up ad abhishek;Bathroom Priv ilege [facility] Work Phone: 03-03-2022 Functional status Ambulates [facility] Work Phone: Mental Status Date Assessment Result Facility 02-27-2025 Cognitive function Voice/Name [facility] Work Phone: 02-05-2025 Cognitive function Level Of Cons ciousness Awake;Alert;Appropriate;Follow s Commands [facility] Work Phone: 01-26-2025 Cognitive function Voice/Name [facility] Work Phone: 10-19-2024 Cognitive function Voice/Name [facility] Work Phone: 01-03-2023 Cognitive function Voice/Name [facility] Work Phone: 12-09-2022 Cognitive function Level Of Cons ciousness Awake;Alert;Appropriate;Follow s Commands [facility] Work Phone: 12-03-2022 Cognitive function Voice/Name [facility] Work Phone: 11-17-2022 Cognitive function Voice/Name [facility] Work Phone: 10-13-2022 Cognitive function Level Of Cons ciousness Awake;Alert;Appropriate;Follow s Commands [facility] Work Phone: 08-20-2022 Cognitive function Voice/Name [facility] Work Phone: 07-07-2022 Cognitive function Level Of Cons ciousness Awake;Alert;Appropriate;Follow s Commands [facility] Work Phone: 06-30-2022 Cognitive function Voice/Name [facility] Work Phone: 03-03-2022 Cognitive function Voice/Name [facility] Work Phone: 2022 Cognitive function Level Of Cons ciousness Awake;Drowsy;Inappropriate [facility] Work Phone: Clinical Notes 05-29-2010 to 02-27-2025 Note Date & Type Note Facility 02-27-2025 History and physi reid note [facility] 02-05-2025 Discharge summary [facility] 02-05-2025 Note [facility] Medical Records Department [address] [place] [address] Discharge Summary 02/05/25 1642 MR#: [id number] Acct: [id number] Name: UNA COSBY Rep #: [id number] : 1995 29 From: Alo Zambrano MD PCP: Care Physician,No Primary Status:ADM IN Location: ICU [id number] Providers Date of Admission: 02/05/25 Date of Discharge: 02/05/25 Primary Care Physician: No Primary Care Phys Reason For Visit: DKA Diagnosis Discharge Diagnosis (1) DKA (diabetic ketoacidosis): Status: Acute Code(s): E11.10 - Type 2 diabetes mellitus with ketoacidosis without coma Plan The patient was admitted with DKA. Anion gap's x 2 closed. Insulin drip was transitioned to Lovenox subcu with overlap. Patient decided to sign AMA. Advised to stay overnight to get IV fluid stabilized glucose but he refused. He understands the implication of signing AMA. Patient left hospital. Medications at Discharge Home Medications insulin lispro 100 unit/mL subcutaneous pen See Rx Instructions SQ TIDCM short acting insulin 03/05/21 insulin glargine 100 unit/mL (3 mL) subcutaneous pen (Lantus Solostar U-100 Insulin) 30 unit subcut QPM diabetes 08/18/22 insulin glargine 100 unit/mL subcutaneous solution (Lantus U-100 Insulin) 35 unit subcut QHS 10/19/24 insulin lispro 100 unit/mL subcutaneous solution 25 unit subcut TIDCM 10/19/24 insulin syringe-needle U-100 0.5 mL 31 gauge x 5/16 (TRUEplus Insulin) 10/19/24 ondansetron 8 mg disintegrating tablet 8 mg PO Q8H PRN nausea and vomiting #12 tabs 12/14/24 Physical Exam Narrative Seen and examined in the morning. Patient is dehydrated. He stated that sometimes he misses insulin but denies any change in the diet. Denies any obvious precipitating factor for DKA. Nausea vomiting has resolved. No abdominal pain. Physical exam General: Alert, Oriented x3, Cooperative HEENT: Atraumatic, PERRLA, EOMI, Normocephalic. Oral: Oral mucosa dry. No Gingival or Mucosal Lesions/ Ulcerations Neck: Supple, No JVD, Negative Carotid Bruits Chest wall/Lungs: Air entry diminished in bilateral lung bases. No crepitation/rhonchi Cardiovascular: Regular rate and rhythm, Normal S1,S2, No M/G/R Abdomen: Bowel Sounds Present, Soft, Non Tender, Non-Distended : No dysuria. No renal angle tenderness. No suprapubic tenderness. Extremities: No edema, Capillary Refill Less than 3 Seconds Skin: No rashes, No breakdown Musculoskeletal: No Tenderness to Palpation of Joints or Extremities Neurological: Cranial nerves II-XII grossly intact, DTR 2+/4. No acute focal neurological deficit. Psych/Mental Status: Normal Affect, Appropriate. Weight / BMI Weight Weight: 135 lb 5.821 oz Body Mass Index (BMI) 18.3 ABG / Lab / Microbiology Data 02/05/25 06:16 02/05/25 12:05 Laboratory: Laboratory Results - last 24 hr 02/05/25 02:22: WBC 13.0 H, RBC 5.13, Hgb 12.3 L, Hct 39.3 L, MCV 76.6 L, MCH 24.0 L, MCHC 31.3 L, R DW Std Deviation 45.2 H, RDW Coeff of Alec 16.2 H, Plt Count 344, MPV 11.4, Immature Gran % (Auto) 0.200, Neut % (Auto) 55.6, Lymph % (Auto) 31.1, [place] % (Auto) 9.0, Eos % (Auto) 3.4, Baso % (Auto) 0.7, Absolute Neuts (auto) 7.3, Absolute Lymphs (auto) 4.05, Nucleated RBC % 0, Differential Comment SCANNED, Sodium 128 L 02/05/25 02:22: Sodium Cancelled, Potassium 4.5 02/05/25 02:22: Potassium Cancelled, Chloride 86 L 02/05/25 02:22: Chloride Cancelled, Carbon Dioxide 19.6 L 02/05/25 02:22: Carbon Dioxide Cancelled, Anion Gap 23 H 02/05/25 02:22: Anion Gap Cancelled, BUN 19 02/05/25 02:22: BUN Cancelled, Creatinine 0.97 02/05/25 02:22: Creatinine Cancelled, Estim Creat Clear Calc 99.02, Est GFR (MDRD) Non-Af 110 02/05/25 02:22: Est GFR (MDRD) Non-Af Cancelled, BUN/Creatinine Ratio 19.9 02/05/25 02:22: BUN/Creatinine Ratio Cancelled, Glucose 736 H* 02/05/25 02:22: Glucose Cancelled, Calcium 10.0 02/05/25 02:22: Calcium Cancelled, Phosphorus 4.6 H, Magnesium 1.9, b-Hydroxybutyric mmol/L 5.5 H, P OC Glucose > 500 H* 02/05/25 03:44: Urine Color Straw, Urine Clarity Clear, Urine pH 6.0, Ur Specific [place] 1.010, U rine Protein 30 H, Urine Glucose (UA) 1000 H, Urine Ketones 150 A*, Urine Occult Blood 25 H, Urine Nitrite Negative, Urine Bilirubin Negative, Urine Urobilinogen Normal, Ur Leukocyte Esterase Negative, Urine RBC 0-5 SEEN, Urine WBC 0 SEEN, Ur Squamous Epith Cells 0 SEEN, Urine Bacteria 0 SEEN, Urine Mucus 0 SEEN 02/05/25 03:59: POC Glucose 430 H 02/05/25 04:56: POC Glucose 308 H 02/05/25 05:59: POC Glucose 269 H 02/05/25 06:16: WBC 13.1 H, RBC 4.29 L, Hgb 10.4 L, Hct 32.5 L, MCV 75.8 L, MCH 24.2 L, MCHC 32.0, R DW Std Deviation 44.2 H, RDW Coeff of Alec 16.2 H, Plt Count 297, MPV 10.8, Immature Gran % (Auto) 0.300, Neut % (Auto) 52.3, Lymph % (Auto) 34.1, [place] % (Auto) 8.5, Eos % (Auto) 4.2, Baso % (Auto) 0.6, Absolute Neuts (auto) 6.8, Abs (more content not included)... [facility] 02-05-2025 Hospital Discharge instructions Additional Instructions Date of Discharge: 02/05/25 [facility] Work Phone: 02-05-2025 Progress note Note Date/Time February 05, 2025 7:49 am [facility] Medical Records Department [address] [place] [address] Progress Note - Hospitalist 02/05/25 0743 MR#: [id number] Acct: [id number] Name: UNA COSBY Rep #:[id number] : 1995 29 From: Alo Lombardo PCP: Care Physician,No Primary Status :ADM IN Location: ICU CVICU 2-1 Hospitalist Note Patient was admitted financial brokers today with DKA. He said he has type 1 diabetes mellitus diagnosed at the age of 15. Denies neuropathy or nephropathy or other retinopathy complications. He was admitted withvomiting [place] started around 6 PM for total of 4 times since then. Admitting glucose in [facility] 736 labs were consistent with DKA. First time gap 23-second 12. IV fluids changed from NS to D5 half NS as serum sodium improved from 128-137. Hyponatremia most likely hypertonic hypovolemic hyponatremia Glucose has decreased to 181 in Accu-Chek. [facility] glucose 248. Continue insulin drip for 02/05/25 0749 <Electronically signed by Alo Zambrano MD> Cosigner Signature (if applicable): CC: ~ Signed [facility] Work Phone: 1(451) 132-285206-30-2025 Discharge summary Author Babita Rivera [facility] Note Date/Time February 05, 2025 7:00 am [facility] Medical Records Department [address] [place] [address] Emergency Department Summary 02/05/25 MR#: [id number] Acct: [id number] Name: UNA COSBY Rep #:[id number] : 1995 29 From: Babita Rivera DO PCP: Care Physician,No Primary Status :ADM IN Location: ICU CVICU20 2-1 HPI History of Present Illness Chief Complaint: Hyperglycemia Detail of Chief Complaint: Hyperglycemia and vomiting Informant: patient Narrative Narrative: Patient presents to the emergency department complaint of vomiting that started around 6 PM. He vomited a total of 4 times. He denies diarrhea. He is a type I diabetic. Earlier in the day his blood glucose was 200 and he took his meds. Afterwards his meter read high. For EMS meter reads high. For arrival in the emergency department meter read high. Patient has history of DKA. He denies recent illness. He denies fevers or chills or sweats. [facility] Medical History (Updated 02/05/25 @ 03:[address] 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 H/O fracture of skull Type I diabetes mellitus, uncontrolled Home Medications ?Medication ?Instructions ?Recorded ?Last Taken ?Type insulin lispro 100 unit/mL See Rx Instructions SQ TIDC M short 03/05/21 03/04/21 History subcutaneous pen acting insulin insulin glargine 100 unit/mL (3 30 unit subcut QPM linda betes 08/18/22 Unknown History mL) subcutaneous pen (Lantus Solostar U-100 Insulin) insulin glargine 100 unit/mL 35 unit subcut QHS Unknown History subcutaneous solution (Lantus U-100 Insulin) insulin lispro 100 unit/mL 25 unit subcut TIDCM Unknown History subcutaneous solution insulin syringe-needle U-100 0.5 10/19/24 Unknown His tory mL 31 gauge x /16 (TRUEplus Insulin) ondansetron 8 mg disintegrating 8 mg PO Q8H PRN nausea and 12/14/24 Unknown Rx tablet vomiting #12 tabs Allergy/AdvReac Type Severity Reaction Status Date / Time No Known Allergies Allergy Verified 02/05/25 02:24 Family History Father Diabetes Surgical History H/O skin graft Social History household members: family Smoking Status: Current some day smoker tobacco type: cigarettes, e-cigarettes and smokeless tobacco Smokeless tobacco user: chewing tobacco second hand exposure: Yes alcohol intake: never substance use type: does not use ROS ROS ED Review of Systems ROS Unobtainable: other Constitutional Constitutional ED: Reports lethargy; Denies chills, fever(s), sweats or weight loss Eyes Eyes: Denies blurry vision, change in vision or diplopia ENT ENT ED: Denies rhinorrhea or sore throat Cardiovascular Cardiovascular: Denies chest pain, orthopnea or racing heartbeat Respiratory/Chest Respiratory/Chest: Denies cough, dyspnea, dyspnea on exertion, orthopnea or sputum Gastrointestinal Gastrointestinal: Reports nausea and vomiting; Denies abdominal pain or diarrhea Genitourinary Genitourinary ED: Denies dysuria, hematuria or urinary frequency Musculoskeletal Musculoskeletal: Denies arthralgias, back pain, myalgias or neck pain Integumentary Denies abscess, Abrasions or rash Neurologic Neurologic: Denies headache(s) or weakness Psychiatric Psychiatric: Denies anxiety, depression or suicidal thoughts Endocrine Endocrinology: Denies polydipsia, polyphagia or polyuria Hematologic/Lymphatic Hematologic/Lymphatic: Denies easy bleeding, easy bruising or lymphadenopathy Allergic/Immunologic Allergic/Immunologic ED: Denies mouth swelling, tongue swelling or urticaria EXAM Physical Exam Const Vital Signs: 02/05/25 02:20 Temperature 98.6 F Temperature Source Oral Pulse Rate 118 H Respiratory Rate 20 H Pulse Ox 98 Oxygen Delivery Method Room Air Positive well nourished and well developed General Appearance ED: well developed and NAD HEENT Reports TM's clear and moist mucous membranes normocephalic and atraumatic; Negative for trauma or tenderness Tympanic Membrane ED: Yes TM's clear Eyes PERRL and EOMs intact bilaterally General Eye ED: Negative for pale conjunctiva or scleral icterus Neck no lymphadenopathy, supple and no JVD General: Negative for tenderness Chest Wall inspection of chest normal and palpation of chest normal Chest: Negative for tenderness Resp normal respiratory effort and clear to auscultation bilaterally Effort and Inspection: Negative for respiratory distress or pain with movement Auscultation: Negative for rhonchi, wheezes or diminished lung sounds Cardio regular rate, regular rhythm, S1 normal heart sound, S2 normal heart sound and no murmurs Peripheral Pulses: pulses 2+ throughout GI normal to inspection, nondistended, normoactive bowel sounds, soft to palpation,non-tender, non-distended and no masses Back/Spine no CVA tenderness and no thoracic nor lumbar tenderness Extremity normal to inspection General Extremety ED: Negative for edema General Extremity: Negative for edema Neuro oriented x3, CN's II-XII intact bilaterally, no sensory deficits noted and gait normal Sensorium / Orientation: awake, alert, oriented to person, oriented to place andoriented to time Motor Exam: strength 5/5 throughout and strength abnormal Psych mental status grossly normal Skin no rashes or lesions noted and no wounds MDM MDM MDM Narrative Medical decision making narrative: Patient presents with hyperglycemia and vomiting. He is a type I diabetic with history of DKA. Denies recent illness. IV line established. He was ordered normal saline fluid bolus. He was started on an insulin drip. CBC with differential obtained for white count of 13.0 with hemoglobin 12.3 and platelet count of 344. Chemistry showed sodium 128 with potassium 4.5 and chloride of 86. CO2 was 19.6 and anion gap of 23 BUN of 19 and creatinine 0.97. Glucose was elevated 736. Case will be discussed with hospitalist to evaluate patient for admission for DKA Lab Data Attestation: I reviewed the patient's lab results. Labs: Laboratory Results - last 24 hr 02/05/25 02:22 WBC 13.0 H RBC 5.13 Hgb 12.3 L Hct 39.3 L MCV 76.6 L MCH 24.0 L MCHC 31.3 L RDW Std Deviation 45.2 H RDW Coeff of Alec 16.2 H Plt Count 344 MPV 11.4 Immature Gran % (Auto) 0.200 Neut % (Auto) 55.6 Lymph % (Auto) 31.1 [place] % (Auto) 9.0 Eos % (Auto) 3.4 Baso % (Auto) 0.7 Absolute Neuts (auto) 7.3 Absolute Lymphs (auto) 4.05 Nucleated RBC % 0 Sodium 128 L Potassium 4.5 Chloride 86 L Carbon Dioxide 19.6 L Anion Gap 23 H BUN 19 Creatinine 0.97 Estim Creat Clear Calc 99.02 Est GFR (MDRD) Non-Af 110 BUN/Creatinine Ratio 19.9 Glucose 736 H* Calcium 10.0 POC Glucose > 500 H* EKG Initial EKG: Attestation: I personally reviewed and interpreted this EKG as follows: Comments: Sinus rhythm with ventricular rate of 112 bpm with no acute ST segment changes Critical Care Time Critical Care Time: Yes Critical care time (excluding procedures): 30-74 minutes, Including time spent:,Discussing w/Patient &/or Family/Coating Machine Helper, Discussing w/Consultants, ArrangingAdmission or Transfer, Performing Direct Patient Care at Bedside and - (30 minutes) Discharge Plan Triage Chief Complaint: Hyperglycemia Other Complaint: Nausea/Vomiting ED Provider: Babita Rivera Dx/Rx/DC Orders Clinical Impression: DKA (diabetic ketoacidosis), Hyperglycemia, Vomiting Prescriptions: No Action insulin lispro 100 UNIT/ML insulin pen See Rx Instructions SQ TIDCM Rx Instructions: SLIDING SCALE SQ 3 times daily with meals; +SLIDING SCALE insulin glargine [Lantus Solostar U-100 Insulin] 100 unit/mL (3 mL) insulin pen 30 unit subcut QPM insulin glargine [Lantus U-100 Insulin] 100 unit/mL solution 35 unit subcut QHS insulin lispro 100 unit/mL solution 25 unit subcut TIDCM Patient Comments: inject 25 three times a day (DME) insulin syringe-needle U-100 [TRUEplus Insulin] 0.5 mL 31 gauge x 5/16 syringe 1 syringe MISCELLANEOUS 4X/DAY ondansetron 8 mg tablet,disintegrating 8 mg PO Q8H PRN (Reason: nausea and vomiting) Qty: 12 0RF Primary Care Provider: Care Physician,No Primary Referrals: Care Physician,No Primary [Primary Care Provider] - Print Language: Estonian Disposition Disposition: Acute Care Hospital [facility] What to do if you have Problems For any increased pain, shortness of breath, bleeding, nausea or vomiting, chestpain, or any unexpected problems, contact your Primary Care Provider. Call [facility] ([phone]) or report to the closest Emergency Room. Call 911 if necessary. 02/05/25 0700 <Electronically signed by Babita Rivera DO> Cosigner Signature (if applicable): CC: No Primary Care Physician ~ Signed [facility] Work Phone: 1(392) 806-119506-30-2025 Progress note [facility] Medical Records Department [address] [facility] [place] [place] [address] Progress Note - Hospitalist 02/05/25 0743 MR#: [id number] Acct: [id number] Name: LAURA COSBYOTHY JUAN Rep #:[id number] : 1995 29 From: Alo Lombardo PCP: Care Physician,No Primary Status :ADM IN Location: ICU CVICU 2-1 Hospitalist Note Patient was admitted financial brokers today with DKA. He said he has type 1 diabetes mellitus diagnosed at the age of 15. Denies neuropathy or nephropathy or other retinopathy complications. He was admitted withvomiting [place] started around 6 PM for total of 4 times since then. Admitting glucose in BMP 736 labs were consistent with DKA. First time gap 23-second 12. IV fluids changed from NS to D5 half NS as serum sodium improved from 128-137. Hyponatremia most likely hypertonic hypovolemic hyponatremia Glucose has decreased to 181 in Accu-Chek. [facility] glucose 248. Continue insulin drip for 02/05/25 0749 Cosigner Signature (if applicable): CC: ~ Signed [facility]06-30-2025 Discharge summary [facility] Medical Records Department [address] [place] [address] Emergency Department Summary 02/05/25 MR#: [id number] Acct: [id number] Name: UNA COSBY Rep #:[id number] : 1995 29 From: Babita Rivera DO PCP: Care Physician,No Primary Status :ADM IN Location: ICU CVICU20 2-1 HPI History of Present Illness Chief Complaint: Hyperglycemia Detail of Chief Complaint: Hyperglycemia and vomiting Informant: patient Narrative Narrative: Patient presents to the emergency department complaint of vomiting that started around 6 PM. He vomited a total of 4 times. He denies diarrhea. He is a type I diabetic. Earlier in the day his blood glucose was 200 and he took his meds. Afterwards his meter read high. For EMS meter reads high. For arrival in the emergency department meter read high. Patient has history of DKA. He denies recent illness. He denies fevers or chills or sweats. [facility]SH [facility] Medical History (Updated 02/05/25 @ 03:[address] 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 H/O fracture of skull Type I diabetes mellitus, uncontrolled Home Medications ?Medication ?Instructions ?Recorded ?Last Taken ?Type insulin lispro 100 unit/mL See Rx Instructions SQ TIDC M short 03/05/21 03/04/21 History subcutaneous pen acting insulin insulin glargine 100 unit/mL (3 30 unit subcut QPM linda betes 08/18/22 Unknown History mL) subcutaneous pen (Lantus Solostar U-100 Insulin) insulin glargine 100 unit/mL 35 unit subcut QHS Unknown History subcutaneous solution (Lantus U-100 Insulin) insulin lispro 100 unit/mL 25 unit subcut TIDCM Unknown History subcutaneous solution insulin syringe-needle U-100 0.5 10/19/24 Unknown His tory mL 31 gauge x 5/16 (TRUEplus Insulin) ondansetron 8 mg disintegrating 8 mg PO Q8H PRN nausea and 12/14/24 Unknown Rx tablet vomiting #12 tabs Allergy/AdvReac Type Severity Reaction Status Date / Time No Known Allergies Allergy Verified 02/05/25 02:24 Family History Father Diabetes Surgical History H/O skin graft Social History household members: family Smoking Status: Current some day smoker tobacco type: cigarettes, e-cigarettes and smokeless tobacco Smokeless tobacco user: chewing tobacco second hand exposure: Yes alcohol intake: never substance use type: does not use ROS ROS ED Review of Systems ROS Unobtainable: other Constitutional Constitutional ED: Reports lethargy; Denies chills, fever(s), sweats or weight loss Eyes Eyes: Denies blurry vision, change in vision or diplopia ENT ENT ED: Denies rhinorrhea or sore throat Cardiovascular Cardiovascular: Denies chest pain, orthopnea or racing heartbeat Respiratory/Chest Respiratory/Chest: Denies cough, dyspnea, dyspnea on exertion, orthopnea or sputum Gastrointestinal Gastrointestinal: Reports nausea and vomiting; Denies abdominal pain or diarrhea Genitourinary Genitourinary ED: Denies dysuria, hematuria or urinary frequency Musculoskeletal Musculoskeletal: Denies arthralgias, back pain, myalgias or neck pain Integumentary Denies abscess, Abrasions or rash Neurologic Neurologic: Denies headache(s) or weakness Psychiatric Psychiatric: Denies anxiety, depression or suicidal thoughts Endocrine Endocrinology: Denies polydipsia, polyphagia or polyuria Hematologic/Lymphatic Hematologic/Lymphatic: Denies easy bleeding, easy bruising or lymphadenopathy Allergic/Immunologic Allergic/Immunologic ED: Denies mouth swelling, tongue swelling or urticaria EXAM Physical Exam Const Vital Signs: 02/05/25 02:20 Temperature 98.6 F Temperature Source Oral Pulse Rate 118 H Respiratory Rate 20 H Pulse Ox 98 Oxygen Delivery Method Room Air Positive well nourished and well developed General Appearance ED: well developed and NAD HEENT Reports TM's clear and moist mucous membranes normocephalic and atraumatic; Negative for trauma or tenderness Tympanic Membrane ED: Yes TM's clear Eyes PERRL and EOMs intact bilaterally General Eye ED: Negative for pale conjunctiva or scleral icterus Neck no lymphadenopathy, supple and no JVD General: Negative for tenderness Chest Wall inspection of chest normal and palpation of chest normal Chest: Negative for tenderness Resp normal respiratory effort and clear to auscultation bilaterally Effort and Inspection: Negative for respiratory distress or pain with movement Auscultation: Negative for rhonchi, wheezes or diminished lung sounds Cardio regular rate, regular rhythm, S1 normal heart sound, S2 normal heart sound and no murmurs Peripheral Pulses: pulses 2+ throughout GI normal to inspection, nondistended, normoactive bowel sounds, soft to palpation,non-tender, non-distended and no masses Back/Spine no CVA tenderness and no thoracic nor lumbar tenderness Extremity normal to inspection General Extremety ED: Negative for edema General Extremity: Negative for edema Neuro oriented x3, CN's II-XII intact bilaterally, no sensory deficits noted and gait normal Sensorium / Orientation: awake, alert, oriented to person, oriented to place andoriented to time Motor Exam: strength 5/5 throughout and strength abnormal Psych mental status grossly normal Skin no rashes or lesions noted and no wounds MDM MDM MDM Narrative Medical decision making narrative: Patient presents with hyperglycemia and vomiting. He is a type I diabetic with history of DKA. Denies recent illness. IV line established. He was ordered normal saline fluid bolus. He was started on an insulin drip. CBC with differential obtained for white count of 13.0 with hemoglobin 12.3 and platelet count of 344. Chemistry showed sodium 128 with potassium 4.5 and chloride of 86. CO2 was 19.6 and anion gap of 23 BUN of 19 and creatinine 0.97. Glucose was elevated 736. Case will be discussed with hospitalist to evaluate patient for admission for DKA Lab Data Attestation: I reviewed the patient's lab results. Labs: Laboratory Results - last 24 hr 02/05/25 02:22 WBC 13.0 H RBC 5.13 Hgb 12.3 L Hct 39.3 L MCV 76.6 L MCH 24.0 L MCHC 31.3 L RDW Std Deviation 45.2 H RDW Coeff of Alec 16.2 H Plt Count 344 MPV 11.4 Immature Gran % (Auto) 0.200 Neut % (Auto) 55.6 Lymph % (Auto) 31.1 Rincon % (Auto) 9.0 Eos % (Auto) 3.4 Baso % (Auto) 0.7 Absolute Neuts (auto) 7.3 Absolute Lymphs (auto) 4.05 Nucleated RBC % 0 Sodium 128 L Potassium 4.5 Chloride 86 L Carbon Dioxide 19.6 L Anion Gap 23 H BUN 19 Creatinine 0.97 Estim Creat Clear Calc 99.02 Est GFR (MDRD) Non-Af 110 BUN/Creatinine Ratio 19.9 Glucose 736 H* Calcium 10.0 POC Glucose > 500 H* EKG Initial EKG: Attestation: I personally reviewed and interpreted this EKG as follows: Comments: Sinus rhythm with ventricular rate of 112 bpm with no acute ST segment changes Critical Care Time Critical Care Time: Yes Critical care time (excluding procedures): 30-74 minutes, Including time spent:,Discussing w/Patient &/or Family/Coating Machine Helper, Discussing w/Consultants, ArrangingAdmission or Transfer, Performing Direct Patient Care at Bedside and - (30 minutes) Discharge Plan Triage Chief Complaint: Hyperglycemia Other Complaint: Nausea/Vomiting ED Provider: Babita Rivera Dx/Rx/DC Orders Clinical Impression: DKA (diabetic ketoacidosis), Hyperglycemia, Vomiting Prescriptions: No Action insulin lispro 100 UNIT/ML insulin pen See Rx Instructions SQ TIDCM Rx Instructions: SLIDING SCALE SQ 3 times daily with meals; +SLIDING SCALE insulin glargine [Lantus Solostar U-100 Insulin] 100 unit/mL (3 mL) insulin pen 30 unit subcut QPM insulin glargine [Lantus U-100 Insulin] 100 unit/mL solution 35 unit subcut QHS insulin lispro 100 unit/mL solution 25 unit subcut TIDCM Patient Comments: inject 25 three times a day (DME) insulin syringe-needle U-100 [TRUEplus Insulin] 0.5 mL 31 gauge x 5/16 syringe 1 syringe MISCELLANEOUS 4X/DAY ondansetron 8 mg tablet,disintegrating 8 mg PO Q8H PRN (Reason: nausea and vomiting) Qty: 12 0RF Primary Care Provider: Care Physician,No Primary Referrals: Care Physician,No Primary [Primary Care Provider] - Print Language: Estonian Disposition Disposition: Acute Care Hospital [facility] What to do if you have Problems For any increased pain, shortness of breath, bleeding, nausea or vomiting, chestpain, or any unexpected problems, contact your Primary Care Provider. Call [facility] ([phone]) or report tothe closest Emergency Room. Call 911 if necessary. 02/05/25 0700 Cosigner Signature (if applicable): CC: No Primary Care Physician ~ Signed [facility]06-30-2025 History and physical note Author Sarah Oh [facility] Note Date/Time February 05, 2025 4:01 am [facility] Medical Records Department [address] [place] [address] H&P Exam - Hospitalist 02/05/25 0343 MR#: [id number] Acct: [id number] Name: UNA COSBY Rep #:[id number] : 1995 29 From: Sarah Oh MD PCP: Care Physician,No Primary Status :ADM IN Location: ICU CVICU20 2-1 HPI - General General Date of Admission: 02/05/25 Date of Service: 02/05/25 Chief Complaint: N/V, elevated BS. HPI Narrative The patient is a 29 y/o M w/ PMHx: Chronic microcytic anemia, IDDM, Anxiety and Depression, Chronic cognitive impairment with learning debilities chart reported, Tobacco use who presents to the [facility] ED on 02/05/2025 with history of onset of nausea and emesis starting at 6 PM the day prior to presentation with significantly elevated blood sugar despite taking hismedications with no recent fevers or chills but [...] 1 L normal saline, Zofran 4 mg IVx 1 and initiated on an insulin drip. [facility] Medical History Noncompliance with medication regimen Anxiety and depression Tobacco use Chronic anemia Learning difficulty due to cognitive limitations H/O fracture of skull Type I diabetes mellitus, uncontrolled Home Medications ?Medication ?Instructions ?Recorded ?Last Taken ?Type insulin lispro 100 unit/mL See Rx Instructions SQ TIDC M short 03/05/21 03/04/21 History subcutaneous pen acting insulin insulin glargine 100 unit/mL (3 30 unit subcut QPM linda betes 08/18/22 Unknown History mL) subcutaneous pen (Lantus Solostar U-100 Insulin) insulin glargine 100 unit/mL 35 unit subcut QHS Unknown History subcutaneous solution (Lantus U-100 Insulin) insulin lispro 100 unit/mL 25 unit subcut TIDCM Unknown History subcutaneous solution insulin syringe-needle U-100 0.5 10/19/24 Unknown His tory mL 31 gauge x 5/16 (TRUEplus Insulin) ondansetron 8 mg disintegrating 8 [...] chest pain, chest pressure or chest discomfort, palpitations,edema, orthopnea, syncopal events. RESPIRATORY: + Mild dyspnea. No cough or sputum, wheezing, hemoptysis. GASTROINTESTINAL: + anorexia, nausea, vomiting. No diarrhea, abdominal pain, melena, BRBPR. GENITOURINARY: No dysuria, frequency, urgency or retention. NEUROLOGICAL: No headache, dizziness, syncope, paralysis, ataxia, numbness or tingling in the extremities, focal weakness, change in bowel or bladder control,seizure. MUSCULOSKELETAL: No muscle, back pain, joint pain [...] (BMI) 18.3 Physical Exam Narrative Physical Examination: General: Awake, alert, oriented x 3 and cooperative, laying in the ED bed, fatigued and disheveled appearing. Skin: Normal color, normal turgor, no icterus, no cyanosis except occasional stage ecchymoses, abrasion. HEENT: AT/NC, EOMI, PERRLA, dry MM, no carotid bruits or JVD noted. Lungs: Mildly diminished, greater bases, mildly increased respiratory rate but no distress, no rales, ronchi or wheezing. Heart: Tachycardic with regular rhythm; no gallop, rub audible. Abdomen: Soft, NTTP, ND, hyperactive BS, no appreciated HSM. Extremities: No cyanosis, no clubbing, no significant pitting edema, status postprevious trauma history with evidence of previous grafts. Neurological: Patient awake, alert, oriented as noted, cognitive function intact; pupils equally reactive to light and accommodation, cranial nerves grossly normal, moving all 4 extremities, no focal deficits, strength severely globally decreased secondary to acute presentation. Psychiatric: Affect appears flat, fatigued, ill-appearing, no acute evidence of depressive or anxiety feelings. Results Lab / Micro Data 02/05/25 02:22 02/05/25 02:22 Labs: Laboratory Results - last 24 hr 02/05/25 02:22: WBC 13.0 H, RBC 5.13, Hgb 12.3 L, Hct 39.3 L, MCV 76.6 L, MCH 24.0 L, MCHC 31.3 L, RDW Std Deviation 45.2 H, RDW Coeff of Alec 16.2 H, Plt Count 344, MPV 11.4, Immature Gran % (Auto) 0.200, Neut % (Auto) 55.6, Lymph % (Auto) 31.1, Rincon % (Auto) 9.0, Eos % (Auto) 3.4, Baso % (Auto) 0.7, Absolute Neuts (auto) 7.3, Absolute Lymphs (auto) 4.05, Nucleated RBC % 0, Differential Comment SCANNED, Sodium 128 L, Potassium 4.5, Chloride 86 L, Carbon Dioxide 19.6L, Anion Gap 23 H, BUN 19, Creatinine 0.97, Estim Creat Clear Calc 99.02, Est GFR (MDRD) Non-Af 110, BUN/Creatinine Ratio 19.9, Glucose 736 H*, Calcium 10.0, POC Glucose > 500 H* Assessment & Plan Assessment/Plan (1) DKA (diabetic ketoacidosis): PLAN: Plan The patient is a 29 y/o M w/ PMHx: Chronic microcytic anemia, IDDM, Anxiety and Depression, Chronic cognitive impairment with learning debilities chart reported, Tobacco use who presents to the [facility] ED on 02/05/2025 with history of onset of nausea and emesis starting at 6 PM the day prior to presentation with significantly elevated blood sugar despite taking hismedications with no recent fevers or chills but persistent GI symptoms and elevated blood sugars prompted ED evaluation. #1. DKA w/ Diabetes mellitus type I: Will admit to the ICU, will continue on insulin drip, check serial K+, glucose w/ IVF changes pending these levels, serial chemistry, obtain mag, phos daily w/ repletion as needed, transition to home SC regimen when gap closed w/ overlap on drip, nutrition consultation. Maintain on IV PPI while n.p.o. status. Encouraged diet and insulin regimen compliance. Hemoglobin A1c requested. #2. Anxiety and depression: Per current list on a regimen, encourage continued outpatient follow-up and evaluation especially given #1. #3. Tobacco Abuse: Encouraged cessation, inpatient consultation per RT, NR if desired. #4. Chronic microcytic anemia: Admission hemoglobin 12.3, MCV 76.6, baseline hemoglobin primarily 12-13 range, stable, continue to closely trend, iron panel,ferritin, guaiac requested. #5. DVT prophylaxis: Lovenox. Charges/Coding Visit Charges Inpatient E&M: 14656 Init Hosp L3 02/05/25 0403 <Electronically signed by Sarah Oh MD> Cosigner Signature (if applicable): CC: Dr. Sarah Oh MD; No Primary Care Physician~ Signed [facility] Work Phone: 1(344) 300-387006-30-2025 Evaluation note* Diagnosis Onset Date Resolution Status Admit Date DKA (diabetic ketoacidosis) acute February 05, 2025 3:44am Hyperglycemia acute February 05, 2025 3:44am Vomiting acute February 05 3:44am [facility] Work Phone: 1(848) 908-959006-30-2025 Evaluation note* Diagnosis Onset Date Resolution Status Admit Date DKA (diabetic ketoacidosis) resolved February 05, 2025 3:44am Hyperglycemia resolved February 05, 2025 3:44am Vomiting resolved February 05 3:44am Acute dehydration acute February 272024 2:52pm Diabetic ketoacidosis associated with type 1 diabetes mellitus acute February 27, 2025 2:52pm [facility] Work Phone: 1(947) 630-354006-30-2025 History and physical note [facility] Medical Records Department [address] [place] [address] H&P Exam - Hospitalist 02/05/25 0343 MR#: [id number] Acct: [id number] Name: UNA COSBY Rep #:[id number] : 1995 29 From: Sarah Oh MD PCP: Care Physician,No Primary Status :ADM IN Location: ICU CVICU20 2-1 HPI - General General Date of Admission: 02/05/25 Date of Service: 02/05/25 Chief Complaint: N/V, elevated BS. HPI Narrative The patient is a 29 y/o M w/ PMHx: Chronic microcytic anemia, IDDM, Anxiety and Depression, Chroniccognitive impairment with learning debilities chart reported, Tobacco use who presents to the [facility] ED on 02/05/2025 with history of onset of nausea and emesis starting at 6 PM the day prior to presentation with significantly elevated blood sugar despite taking hismedications with no recent fevers or chills but [...] 1 L normal saline, Zofran 4 mg IVx 1 and initiated on an insulin drip. [facility] Medical History Noncompliance with medication regimen Anxiety and depression Tobacco use Chronic anemia Learning difficulty due to cognitive limitations H/O fracture of skull Type I diabetes mellitus, uncontrolled Home Medications ?Medication ?Instructions ?Recorded ?Last Taken ?Type insulin lispro 100 unit/mL See Rx Instructions SQ TIDC M short 03/05/21 03/04/21 History subcutaneous pen acting insulin insulin glargine 100 unit/mL (3 30 unit subcut QPM linda betes 08/18/22 Unknown History mL) subcutaneous pen (Lantus Solostar U-100 Insulin) insulin glargine 100 unit/mL 35 unit subcut QHS Unknown History subcutaneous solution (Lantus U-100 Insulin) insulin lispro 100 unit/mL 25 unit subcut TIDCM Unknown History subcutaneous solution insulin syringe-needle U-100 0.5 10/19/24 Unknown His tory mL 31 gauge x 5/16 (TRUEplus Insulin) ondansetron 8 mg disintegrating 8 [...] chest pain, chest pressure or chest discomfort, palpitations,edema, orthopnea, syncopal events. RESPIRATORY: + Mild dyspnea. No cough or sputum, wheezing, hemoptysis. GASTROINTESTINAL: + anorexia, nausea, vomiting. No diarrhea, abdominal pain, melena, BRBPR. GENITOURINARY: No dysuria, frequency, urgency or retention. NEUROLOGICAL: No headache, dizziness, syncope, paralysis, ataxia, numbness or tingling in the extremities, focal weakness, change in bowel or bladder control,seizure. MUSCULOSKELETAL: No muscle, back pain, joint pain [...] (BMI) 18.3 Physical Exam Narrative Physical Examination: General: Awake, alert, oriented x 3 and cooperative, laying in the ED bed, fatigued and disheveled appearing. Skin: Normal color, normal turgor, no icterus, no cyanosis except occasional stage ecchymoses, abrasion. HEENT: AT/NC, EOMI, PERRLA, dry MM, no carotid bruits or JVD noted. Lungs: Mildly diminished, greater bases, mildly increased respiratory rate but no distress, no rales, ronchi or wheezing. Heart: Tachycardic with regular rhythm; no gallop, rub audible. Abdomen: Soft, NTTP, ND, hyperactive BS, no appreciated HSM. Extremities: No cyanosis, no clubbing, no significant pitting edema, status postprevious trauma history with evidence of previous grafts. Neurological: Patient awake, alert, oriented as noted, cognitive function intact; pupils equally reactive to light and accommodation, cranial nerves grossly normal, moving all 4 extremities, no focaldeficits, strength severely globally decreased secondary to acute presentation. Psychiatric: Affect appears flat, fatigued, ill-appearing, no acute evidence of depressive or anxiety feelings. Results Lab / Micro Data 02/05/25 02:22 02/05/25 02:22 Labs: Laboratory Results - last 24 hr 02/05/25 02:22: WBC 13.0 H, RBC 5.13, Hgb 12.3 L, Hct 39.3 L, MCV 76.6 L, MCH 24.0 L, MCHC 31.3 L, RDW Std Deviation 45.2 H, RDW Coeff of Alec 16.2 H, Plt Count 344, MPV 11.4, Immature Gran % (Auto) 0.200, Neut % (Auto) 55.6, Lymph % (Auto) 31.1, Rincon % (Auto) 9.0, Eos % (Auto) 3.4, Baso % (Auto) 0.7, Absolute Neuts (auto) 7.3, Absolute Lymphs (auto) 4.05, Nucleated RBC % 0, Differential Comment SCANNED, Sodium 128 L, Potassium 4.5, Chloride 86 L, Carbon Dioxide 19.6L, Anion Gap 23 H, BUN 19, Creatinine 0.97, Estim Creat Clear Calc 99.02, Est GFR (MDRD) Non-Af 110, BUN/Creatinine Ratio 19.9, Glucose 736 H*, Calcium 10.0, POC Glucose > 500 H* Assessment & Plan Assessment/Plan (1) DKA (diabetic ketoacidosis): PLAN: Plan The patient is a 29 y/o M w/ PMHx: Chronic microcytic anemia, IDDM, Anxiety and Depression, Chroniccognitive impairment with learning debilities chart reported, Tobacco use who presents to the [facility] ED on 02/05/2025 with history of onset of nausea and emesis starting at 6 PM the day prior to presentation with significantly elevated blood sugar despite taking hismedications with no recent fevers or chills but persistent GI symptoms and elevated blood sugars prompted ED evaluation. #1. DKA w/ Diabetes mellitus type I: Will admit to the ICU, will continue on insulin drip, check serial K+, glucose w/ IVF changes pending these levels, serial chemistry, obtain mag, phos daily w/ repletion as needed, transition to home SC regimen when gap closed w/ overlap on drip, nutrition consultation. Maintain on IV PPI while n.p.o. status. Encouraged diet and insulin regimen compliance. Hemoglobin A1c requested. #2. Anxiety and depression: Per current list on a regimen, encourage continued outpatient follow-upand evaluation especially given #1. #3. Tobacco Abuse: Encouraged cessation, inpatient consultation per RT, NR if desired. #4. Chronic microcytic anemia: Admission hemoglobin 12.3, MCV 76.6, baseline hemoglobin primarily 12-13 range, stable, continue to closely trend, iron panel,ferritin, guaiac requested. #5. DVT prophylaxis: Lovenox. Charges/Coding Visit Charges Inpatient E&M: 43988 Init Hosp L3 02/05/25 0401 Cosigner Signature (if applicable): CC: Dr. Sarah Oh MD; No Primary Care Physician~ Signed [facility]06-20-2025 Radiology Diagnostic study note [facility] Imaging Services [address] [place], [place] [address] Chest PA and Lateral MR#: [id number] Acct: [id number] Name: UNA COSBY Rep #: [id number] : 1995 M 29 From: Roberto Babin MD PCP: Care Physician,No Primary Status: REG ER Study:Chest PA and Lateral Date of Exam: 01/26/25 Exam# [id number] Ordering Dr: Beverly Wharton PROCEDURE: CHEST PA AND LATERAL 01/26/2025 REASON FOR EXAM: CHEST PAIN TECHNIQUE: CHEST PA AND LATERAL COMPARISON: Prior study dated October 19, 2024. FINDINGS: Hardware: EKG electrodes. Heart: Unremarkable Mediastinum: The mediastinal contour is unremarkable. Lungs: The lungs are clear. Bones: The bones are unremarkable. RAD/Chest PA and Lateral IMPRESSION: NO ACUTE FINDINGS. Reading Location: [place] [address] CC: Beverly Glauthier, PA; No Primary Care Physician ~ Manager [employer]: Signed [facility]05-08-2025 Discharge summary [facility] Medical Records Department [address] [place] [address] Emergency Department Summary 12/13/24 MR#: [id number] Acct: [id number] Name: UNA COSBY Rep #:[id number] : 1995 29 From: Juan Rivas MD PCP: Care Physician,No Primary Status :REG ER Location: ED HPI History of Present Illness Chief Complaint: Nausea/Vomiting Informant: patient Narrative Narrative: 29-year-old male seen here yesterday for shoulder pain and prescribed Naprosyn he states soon aftertaking the first pill last night he started vomiting. Today he has been vomiting all day, and subsequently started feeling orthostatic when he stood up, feeling lightheaded. No syncopal episodes. No hematemesis. No fevers, chills, abdominal pain, diarrhea. He denies feeling short of breath. He is atype I diabetic, he does not use a pump but injects his own. States hedid give himself some insulinaround 8 hours ago when his blood sugar was somewhere in the 200s he has not checked it since. Doesnot feel polyuria/polydipsia since then. States he cannot keep anything down all day. [facility] [facility] Medical History Learning difficulty due to cognitive [...] Unknown His tory mL 31 gauge x 12/22 (TRUEplus Insulin) ondansetron 8 mg disintegrating 8 [...] other Details: left shoulder pain x months, I just decided to get it checked out yesterday. ; Denies back pain or neck pain [...] his blood sugars every hour, because I w asnot able to rule out the possibility of [...] % (Auto) 53.8 Lymph % (Auto) 33.9 [place] % (Auto) 8.1 Eos % (Auto) 3.3 [...] Clarity Clear Urine pH 7.0 Ur Specific [place] 1.005 Urine Protein 30 H Urine Glucose [...] (Auto) Neut % (Auto) Lymph % (Auto) [place] % (Auto) Eos % (Auto) Baso % (Auto) Absolute Neuts (auto) Absolute Lymphs (auto) Nucleated RBC % Sodium 136 Potassium 3.6 Chloride 103 Carbon Dioxide 24.0 Anion Gap 9 BUN 10 Creatinine 0.64 L Estim Creat Clear Calc 126.32 Est GFR (MDRD) Non-Af 133 BUN/Creatinine Ratio 16.2 Glucose 275 H Calcium 7.8 b-Hydroxybutyric mmol/L Urine Color Urine Clarity Urine pH Ur Specific [place] Urine Protein Urine Glucose (UA) Urine Ketones [...] (Auto) Neut % (Auto) Lymph % (Auto) [place] % (Auto) Eos % (Auto) Baso % (Auto) Absolute Neuts (auto) Absolute Lymphs (auto) Nucleated RBC % Sodium Potassium Chloride Carbon Dioxide Anion Gap BUN Creatinine Estim Creat Clear Calc Est GFR (MDRD) Non-Af BUN/Creatinine Ratio Glucose Calcium b-Hydroxybutyric mmol/L Urine Color Urine Clarity Urine pH Ur Specific [place] Urine Protein Urine Glucose (UA) Urine Ketones [...] [TRUEplus Insulin] 0.5 mL 31 gauge x 5/16 syringe 1 syringe MISCELLANEOUS 4X/DAY Discontinued naproxen 500 mg tablet 500 mg PO BID Qty: 10 0RF Primary Care Provider: Care Physician,No Primary Referrals: Doctor,Your [Non-Staff] - 1-2 Days if not improving Print Language: Estonian Disposition Disposition: Home, Self Care What to do if you have Problems For any increased pain, shortness of breath, bleeding, nausea or vomiting, chestpain, or any unexpected problems, contact your Primary Care Provider. Call [facility] ([phone]) or report tothe closest Emergency Room. Call 911 if necessary. 12/14/24 0213 Cosigner Signature (if applicable): CC: No Primary Care Physician ~ Signed [facility]05-07-2025 Discharge summary Author Juan Rivas [facility] Note Date/Time December 14, 2024 2:13am [facility] Medical Records Department [address] [place] [address] Emergency Department Summary 12/13/24 MR#: [id number] Acct: [id number] Name: UNA COSBY Rep #:[id number] : 1995 29 From: Juan Rivas MD [...] he cannot keep anything down all day. 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 ; Denies back pain or neck pain [...] % (Auto) 53.8 Lymph % (Auto) 33.9 [place] % (Auto) 8.1 Eos % (Auto) 3.3 [...] Clarity Clear Urine pH 7.0 Ur Specific [place] 1.005 Urine Protein 30 H Urine Glucose [...] (Auto) Neut % (Auto) Lymph % (Auto) [place] % (Auto) Eos % (Auto) Baso % (Auto) Absolute Neuts (auto) Absolute Lymphs (auto) Nucleated RBC % Sodium 136 Potassium 3.6 Chloride 103 Carbon Dioxide 24.0 Anion Gap 9 BUN 10 Creatinine 0.64 L Estim Creat Clear Calc 126.32 Est GFR (MDRD) Non-Af 133 BUN/Creatinine Ratio 16.2 Glucose 275 H Calcium 7.8 b-Hydroxybutyric mmol/L Urine Color Urine Clarity Urine pH Ur Specific [place] Urine Protein Urine Glucose (UA) Urine Ketones [...] (Auto) Neut % (Auto) Lymph % (Auto) [place] % (Auto) Eos % (Auto) Baso % (Auto) Absolute Neuts (auto) Absolute Lymphs (auto) Nucleated RBC % Sodium Potassium Chloride Carbon Dioxide Anion Gap BUN Creatinine Estim Creat Clear Calc Est GFR (MDRD) Non-Af BUN/Creatinine Ratio Glucose Calcium b-Hydroxybutyric mmol/L Urine Color Urine Clarity Urine pH Ur Specific [place] Urine Protein Urine Glucose (UA) Urine Ketones [...] [TRUEplus Insulin] 0.5 mL 31 gauge x 5/16 syringe 1 syringe MISCELLANEOUS 4X/DAY Discontinued naproxen 500 mg tablet 500 mg PO BID Qty: 10 0RF Primary Care Provider: Care Physician,No Primary Referrals: Doctor,Your [Non-Staff] - 1-2 Days if not improving Print Language: Estonian Disposition Disposition: Home, Self Care What to do if you have Problems For any increased pain, shortness of breath, bleeding, nausea or vomiting, chestpain, or any unexpected problems, contact your Primary Care Provider. Call [facility] ([phone]) or report to the closest Emergency Room. Call 911 if necessary. 12/14/24212 <Electronically signed by Juan Rivas MD> Cosigner Signature (if applicable): CC: No Primary Care Physician ~ Signed [facility] Work Phone: 1(354) 626-330403-13-2025 Discharge summary [facility] Medical Records Department [address] [place] [address] Emergency Department Summary 10/19/24 MR#: [id number] Acct: [id number] Name: UNA COSBY Rep #:[id number] : 1995 29 From: Keisha Maldonado PCP: [...] complaints or concerns reported at this time. 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 Reading Location: [facility] Rhythm Strip Rhythm Strip: Sinus Tach Rate: [...] [TRUEplus Insulin] 0.5 mL 31 gauge x 5/16 syringe 1 syringe MISCELLANEOUS 4X/DAY Primary Care [...] workup was largely normal with no findings server assistant with heart attack or other acute cardiac/heart process Print Language: Estonian Disposition Disposition: Home, Self Care What to do if you have Problems For any increased pain, shortness of breath, bleeding, nausea or vomiting, chestpain, or any unexpected problems, contact your Primary Care Provider. Call [facility] ([phone]) or report tothe closest Emergency Room. Call 911 if necessary. 10/19/24 0516 Cosigner Signature (if applicable): CC: No Primary Care Physician ~ Signed [facility]03-13-2025 Radiology Diagnostic study note [facility] Imaging Services [address] [place], [place] [address] Chest PA and Lateral MR#: [id number] Acct: [id number] Name: UNA COSBY Rep #: [id number] : 1995 M 29 From: Damian Massey MD PCP: Dr. Deangelo Noel MD Status: KS E ER Study:Chest PA and Lateral Date of Exam: 10/19/24 Exam# [id number] Ordering Dr: Danielle Handy DO PROCEDURE: CHEST PA AND LATERAL REASON FOR EXAM: CHEST PAIN TECHNIQUE: PA and lateral views of the chest. COMPARISON: 02/15/2023 FINDINGS: The lungs are clear. The cardiac and mediastinal contours are within limits. The visualized osseousstructures appear within limits. RAD/Chest PA and Lateral IMPRESSION: No evidence of acute disease. Reading Location: [id number] CC: Dr. Keisha Handy DO; Dr. Deangelo Noel MD ~ Manager Pharmaceutical: Signed [facility]05-28-[address] Zarate [facility] January 04, 2023 12:28am Note Date/Time January 03, 2023 11:04 pm [facility] Medical Records Department [address] [place] [address] Emergency Department Summary 01/03/23 MR#: [id number] Acct: [id number] Name: UNA COSBY Rep #:[id number] : 1995 27 From: Darren Maldonado PCP: [...] 45.8 L Lymph % (Auto) 42.3 H [place] % (Auto) 7.8 Eos % (Auto) 3.2 [...] asinus tachycardia with a rate of 117. [place] interval, QRS interval, and QTc intervals were all normal. [place] was normal. There are no acute ST [...] Chief Complaint: Chest Pain ED Provider: Darren Zartae Dx/Rx/DC Orders Clinical Impression: Chest pain, Hyperglycemia [...] your Primary Care Provider. Call [facility] ([phone]) or report to the closest Emergency Room. Call 911 if necessary. 01/04/23 0028 <Electronically signed by Darren Zarate DO> Cosigner Signature (if applicable): CC: Dr. Deangelo Noel MD ~ Signed [facility] Work Phone: [phone]) 447-925804-27-[address] Calvillo [facility] December 03, 2022 11:22pm Note Date/Time December 03, 2022 9:2 1pm [facility] Medical Records Department [address] [place] [address] Emergency Department Summary 12/03/22 MR#: [id number] Acct: [id number] Name: UNA COSBY Rep #:[id number] : 1995 27 From: Edgar Calvillo DO [...] Denies drug use. No history of DVT/PE. [facility] Medical History Anxiety Depression H/O fracture of [...] % (Auto) 62.3 Lymph % (Auto) 26.9 [place] % (Auto) 8.0 Eos % (Auto) 2.0 [...] your Primary Care Provider. Call [facility] ([phone]) or report to the closest Emergency Room. Call 911 if necessary. 12/03/222321 <Electronically signed by Edgar Calvillo DO> Cosigner Signature (if applicable): CC: Dr. Deangelo Noel MD ~ Signed [facility] Work Phone: 1(923) 686-108602-27-2023 Miscellaneous Notes* Telephone Encounter - Lilly Sutherland MA - 10/05/2022 10:01 AM EST Patient notified and voiced understanding. Lilly Sutherland MA Letter taken to medial records. Lilly Sutherland MA * Telephone Encounter - Phillip Howe APRN.CNP - 10/05/2022 9:45 AM EST Letter printed. [...] the pt is a pt at the [facility] -letter must be within the last 4 years -letter must be signed and dated by doctor or staff member There is no PCP listed under the pt but has been seen by Dr. Noel's in the past. Please call pt with any information. [facility]23 Miscellaneous Notes* Telephone Encounter - Rajwinder Rosales [...] medicine. Phillip Howe APRN.CNP documented in this encounterFair[facility] Center01-16-2023 Miscellaneous Notes* Telephone Encounter - Phillip Howe [...] advise. Rajwinder Rosales LPN documented in this encounterFair[facility] Center12-01-2022 Miscellaneous Notes* Telephone Encounter - Parvin Hannah Ma - 07/09/2022 2:05 PM EST PA received from pharmacy but when accessing it through [facility] PA not needed. Did verifywith pharmacy medication goes through with no issue an is covered. Parvin Hannah Ma documented in this encounterFairfield [facility] Center11-29-2022 History of Present illness Narrative* Phillip Howe APRN.CNP - 07/07/2022 2:00 PM EST Patient came to appointment today. [facility] was in the [facility] 1 [facility]2 hours ago with complaints of chest pain, shortness of breath and lungs filling up with fluids. Had been out of his insulin for a few days. He was triaged by a provider in [facility] and sent to the ER. I discussed [...] meals. Give along with SSI coverage Insulin [place], Disposable, (BD ULTRAFINE III MINI PEN) 31 gauge x 3/16 100 Each 11 Sig: as directed for insulin injections 3 times a day Insulin Syringe-Needle U-100 (BD INSULIN SYRINGE ULTRAFINE) 0.3 mL 31 gauge x 5/16 100 Each 11 Sig: Use 4 times daily and prn Phillip Howe APRN.CNP documented in this encounterFairfield [facility] Center11-29-2022 History of Present illness Narrative* Isaiah Caldera APRN.CNP - 07/07/2022 12:09 PM EST Patient triaged at [facility]. States has not taken insulin for few days/out of medicine. Reportslungs are filling up with fluid and reports constant chest pain. I will refer to ER. Mildly ill appearing but no distress. documented in this encounterFairfield [facility] Center11-04-2022 Miscellaneous Notes* Telephone Encounter - Meri Mckinney [...] planned Deangelo Noel MD documented in this encounterFairfield [facility] Center11-01-2022 Miscellaneous Notes* Telephone Encounter - Deangelo Noel [...] name and birthdate: Yes Call received from [facility] at 4:33 PM to report an urgent value for glucose with a result of 555. Dr. Noel was notified of the result at 4:34PM. Marcy Ponce Lpn documented in this encounterFairfield Medical Center11-01-2022 Miscellaneous Notes* Telephone Encounter - Phillip Howe APRN.CNP - 06/09/2022 10:53 AM EDT The following approved medication requests have been transmitted electronically. Requested Prescriptions Pending Prescriptions Disp Refills Insulin [place], Disposable, (BD ULTRAFINE III MINI PEN) 31 gauge x 16 100 Each 11 Sig: as directed for insulin injections 3 times a day Insulin Syringe-Needle U-100 (BD INSULIN SYRINGE ULTRAFINE) 0.3 mL 31 gauge x 16 100 Each 11 Sig: Use 4 times [...] Sousa Ma * Telephone Encounter - Sindy Dietz - 06/07/2022 10:47 AM EDT Patient [...] meals. Give along with SSI coverage Insulin [place], Disposable, (BD ULTRAFINE III MINI PEN) 31 gauge x 3/16 100 Each 11 Sig: as directed for insulin injections 3 times a day Insulin Syringe-Needle U-100 (BD INSULIN SYRINGE ULTRAFINE) 0.3 mL 31 gauge x 5/16 100 Each 11 Sig: Use 4 times [...] advise. Sindy Brar Pss documented in this encounterFairfield [facility] Center10-30-2022 Miscellaneous Notes* Telephone Encounter - Radha Hameed APRN.CNP - 06/07/2022 11:09 AM EDT Medications reordered today, needs appointment for further refills. Radha Hameed APRN.CNP documented in this encounterFairfield Medical Center07-27-2022 History of Present illness Narrative* Rajwinder Rosales LPN - 03/04/2022 9:29 AM EDT TRANSITION CARE MANAGEMENT (TCM) INITIAL CONTACT Enterprise Application Administrator Outreach Provider Action/FYI: Unable to reach Pt. mailbox is not set up and and other number not working. Called X2 Initial contact with patient post discharge, spoke to . Patient identified by name and . TRANSITION CARE MANAGEMENT INITIAL OUTREACH DOCUMENTATION: No flowsheet data found. SUMMARY: -Pt discharged from [facility] on 03/03/22. -Admitted for: High blood [...] records from recent hospitalization: documented in this encounterFairfield [facility] Center04-12-2022 History of Present illness Narrative* Sabrina Sousa Ma - 11/18/2021 11:11 AM EDT POPULATION HEALTH NAVIGATION OUTREACH Action/I 11/17/21-tried to reach pt, VM not set up. 11/18/21-Letter mailed to pt home notifying pt he is due for appt. Pt identified by name and : NO Outreach Outcome/Action Unable to reach patient: Phone number not valid / voicemail full Letter mailed Reason for Outreach Care Gap or Scheduling/Wellness visits Payer: Payor: [employer] MEDICAID / Plan: [employer] MEDICAID / Product Type: Medicaid / Care [...] field. Phillip Howe APRN.CNP documented in this encounterFairfield Medical Center11-29-2021 Miscellaneous Notes* Telephone Encounter - Phillip Howe APRN.CNP - 07/07/2021 2:00 PM EST Okay to switch to Lantus Solostar. New Rx sent. The following approved medication requests have been transmitted electronically. Signed Prescriptions Disp Refills insulin glargine (LANTUS SOLOSTAR U-100 INSULIN) 100 unit/mL (3 mL) 4 Pen 3 Sig: Inject 40 Units subcutaneously every morning. Authorizing Provider: PHILLIP HOWE APRN.CNP * Telephone Encounter - Delaney Ordoñez LPN [...] 07/01. Patricia Ordoñez LPN documented in this encounterFairfield Medical Center10-21-2010 History of Past illness Narrative* Problem Noted Date Resolved Date Diabetes mellitus type 1 with ketoacidosis 05/2905/29/2010 documented as of this encounter (statuses as of 11/18/2021) [facility] of Past illness Narrative* Problem Noted Date Resolved Date Diabetes mellitus type 1 with ketoacidosis 05/2905/29/2010 documented as of this encounter (statuses as of 12/09/2021) [facility] of Past illness Narrative* Problem Noted Date Resolved Date Diabetes mellitus type 1 with ketoacidosis 05/2905/29/2010 documented as of this encounter (statuses as of 04/06/2022) [facility] Narrative* Problem Noted Date Resolved Date Diabetes mellitus type 1 with ketoacidosis 05/2905/29/2010 documented as of this encounter (statuses as of 06/07/2022) [facility] of [facility] illness Narrative* Problem Noted Date Resolved Date Diabetes mellitus type 1 with ketoacidosis 05/2905/29/2010 documented as of this encounter (statuses as of 06/09/2022) [facility] Narrative* Problem Noted Date Resolved Date Diabetes mellitus type 1 with ketoacidosis 05/2905/29/2010 documented as of this encounter (statuses as of 06/09/2022) [facility] of [facility] illness Narrative* Problem Noted Date Resolved Date Diabetes mellitus type 1 with ketoacidosis 05/2905/29/2010 documented as of this encounter (statuses as of 06/12/2022) [address]21-2010 History of Past illness Narrative* Problem Noted Date Resolved Date Diabetes mellitus type 1 with ketoacidosis 05/2905/29/2010 documented as of this encounter (statuses as of 07/07/2022) [facility] Narrative* Problem Noted Date Resolved Date Diabetes mellitus type 1 with ketoacidosis 05/2905/29/2010 documented as of this encounter (statuses as of 07/07/2022) [facility] Narrative* Problem Noted Date Resolved Date Diabetes mellitus type 1 with ketoacidosis 05/2905/29/2010 documented as of this encounter (statuses as of 07/09/2022) [facility] Narrative* Problem Noted Date Resolved Date Diabetes mellitus type 1 with ketoacidosis 05/2905/29/2010 documented as of this encounter (statuses as of 08/24/2022) [facility] Narrative* Problem Noted Date Resolved Date Diabetes mellitus type 1 with ketoacidosis 05/2905/29/2010 documented as of this encounter (statuses as of 09/25/2022) [facility] Narrative* Problem Noted Date Resolved Date Diabetes mellitus type 1 with ketoacidosis 05/2905/29/2010 documented as of this encounter (statuses as of 10/05/2022) [facility] Narrative* Problem Noted Date Resolved Date Diabetes mellitus type 1 with ketoacidosis 05/2905/29/2010 documented as of this encounter (statuses as of 10/06/2022) [facility] Center[facility] Author Sandy Mcclain [facility] November 17, 2022 2:01am Note Date/Time November 17, 2022 1:1 8am [facility] Medical Records Department [address] [place] [address] Emergency Department Summary 11/17/22 MR#: [id number] Acct: [id number] Name: ALEAUNA JUAN Rep #:[id number] : 1995 27 From: Jimmie Palomino MD PCP: Sadie MIRELES,Deangelo Status:REG ER Location: ED HPI History of [...] Patient states he needs to see a vision care associate. But he has not made any calls tosee them despite referrals. He states his phone only works on Wi-Fi. I have recommended he try to use a phone at work or borrow a friend's phone to make those calls as it is important that he gets in. Patient denies any travel surgery immobilization personal or family history of DVT or PE. [facility] Medical History Anxiety Depression H/O fracture of [...] % (Auto) 49.8 Lymph % (Auto) 38.9 [place] % (Auto) 7.7 Eos % (Auto) 2.8 [...] cycle. No acute ST elevation or depression. [place] interval, QRS duration and QTc are normal. [...] your Primary Care Provider. Call [facility] ([phone]) or report to the closest Emergency Room. [...] been given information for cardiology follow-up. 11/17/22 0201<Electronically signed by Sandy Mcclain MD> Cosigner Signature (if applicable): cc: Deangelo Noel MD ~* Signed [facility] Work Phone: Discharge summary Author Keisha Handy [facility] Note Date/Time October 19, 2024 5:1 6am [facility] Medical Records Department [address] [place] [address] Emergency Department Summary 10/19/24 MR#: [id number] Acct: [id number] Name: UNA COSBY Rep #:[id number] : 1995 29 From: Keisha Maldonado PCP: [...] complaints or concerns reported at this time. 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 Reading Location: [facility] Rhythm Strip Rhythm Strip: Sinus Tach Rate: [...] [TRUEplus Insulin] 0.5 mL 31 gauge x 5/16 syringe 1 syringe MISCELLANEOUS 4X/DAY Primary Care [...] workup was largely normal with no findings server assistant with heart attack or other acute cardiac/heart process Print Language: Estonian Disposition Disposition: Home, Self Care What to do if you have Problems For any increased pain, shortness of breath, bleeding, nausea or vomiting, chestpain, or any unexpected problems, contact your Primary Care Provider. Call [facility] ([phone]) or report to the closest Emergency Room. Call 911 if necessary. 10/19/24 0516 <Electronically signed by Keisha Handy DO> Cosigner Signature (if applicable): CC: No Primary Care Physician ~ Signed [facility] Work Phone: Discharge summary Author Alo Zambrano [facility] Note Date/Time February 05, 2025 4:45 pm [facility] Medical Records Department [address] [place] [address] Discharge Summary 02/05/25 1642 MR#: [id number] Acct: [id number] Name: UNA COSBY Rep #:[id number] : 1995 29 From: Alo Lombardo PCP: Care Physician,No Primary Status :ADM IN Location: ICU CVICU20 2-1 Providers Date of Admission: 02/05/25 Date of Discharge: 02/05/25 Primary Care Physician: No Primary Care Phys Reason For Visit: DKA Diagnosis Discharge Diagnosis (1) DKA (diabetic ketoacidosis): Status: Acute Code(s): E11.10 - Type 2 diabetes mellitus with ketoacidosis without coma Plan The patient was admitted with DKA. Anion gap's x 2 closed. [facility] Patient decided to sign AMA. Advised to stay overnight to get IV fluid stabilized glucose but he refused. Heunderstands the implication of signing AMA. Patient left hospital. Medications at Discharge Home Medications insulin lispro 100 unit/mL subcutaneous pen See Rx Instructions SQ TIDCM short acting insulin 03/05/21 insulin glargine 100 unit/mL (3 mL) subcutaneous pen (Lantus Solostar U-100 Insulin) 30 unit subcut QPM diabetes 08/18/22 insulin glargine 100 unit/mL subcutaneous solution (Lantus U-100 Insulin) 35 unit subcut QHS 10/19/24 insulin lispro 100 unit/mL subcutaneous solution 25 unit subcut TIDCM 10/19/24 insulin syringe-needle U-100 0.5 mL 31 gauge x /16 (TRUEplus Insulin) 10/19/24 ondansetron 8 mg disintegrating tablet 8 mg PO Q8H PRN nausea and vomiting #12 tabs 12/14/24 Physical Exam Narrative Seen and examined in the morning. Patient is dehydrated. He stated that sometimes he misses insulin but denies any change in the diet. Denies any obvious precipitating factor for DKA. Nausea vomiting has resolved. No abdominal pain. Physical exam General: Alert, Oriented x3, Cooperative HEENT: Atraumatic, PERRLA, EOMI, Normocephalic. Oral: Oral mucosa dry. No Gingival or Mucosal Lesions/ Ulcerations Neck: Supple, No JVD, Negative Carotid Bruits Chest wall/Lungs: Air entry diminished in bilateral lung bases. No crepitation/rhonchi Cardiovascular: Regular rate and rhythm, Normal S1,S2, No M/G/R Abdomen: Bowel Sounds Present, Soft, Non Tender, Non-Distended : No dysuria. No renal angle tenderness. No suprapubic tenderness. Extremities: No edema, Capillary Refill Less than 3 Seconds Skin: No rashes, No breakdown Musculoskeletal: No Tenderness to Palpation of Joints or Extremities Neurological: Cranial nerves II-XII grossly intact, DTR 2+/4. No acute focal neurological deficit. Psych/Mental Status: Normal Affect, Appropriate. Weight / BMI Weight Weight: 135 lb 5.821 oz Body Mass Index (BMI) 18.3 ABG / Lab / Microbiology Data 02/05/25 06:16 02/05/25 12:05 Laboratory: Laboratory Results - last 24 hr 02/05/25 02:22: WBC 13.0 H, RBC 5.13, Hgb 12.3 L, Hct 39.3 L, MCV 76.6 L, MCH 24.0 L, MCHC 31.3 L, RDW Std Deviation 45.2 H, RDW Coeff of Alec 16.2 H, Plt Count 344, MPV 11.4, Immature Gran % (Auto) 0.200, Neut % (Auto) 55.6, Lymph % (Auto) 31.1, Rincon % (Auto) 9.0, Eos % (Auto) 3.4, Baso % (Auto) 0.7, Absolute Neuts (auto) 7.3, Absolute Lymphs (auto) 4.05, Nucleated RBC % 0, Differential Comment SCANNED, Sodium 128 L 02/05/25 02:22: Sodium Cancelled, Potassium 4.5 02/05/25 02:22: Potassium Cancelled, Chloride 86 L 02/05/25 02:22: Chloride Cancelled, Carbon Dioxide 19.6 L 02/05/25 02:22: Carbon Dioxide Cancelled, Anion Gap 23 H 02/05/25 02:22: Anion Gap Cancelled, BUN 19 02/05/25 02:22: BUN Cancelled, Creatinine 0.97 02/05/25 02:22: Creatinine Cancelled, Estim Creat Clear Calc 99.02, Est GFR (MDRD) Non-Af 110 02/05/25 02:22: Est GFR (MDRD) Non-Af Cancelled, BUN/Creatinine Ratio 19.9 02/05/25 02:22: BUN/Creatinine Ratio Cancelled, Glucose 736 H* 02/05/25 02:22: Glucose Cancelled, Calcium 10.0 02/05/25 02:22: Calcium Cancelled, Phosphorus 4.6 H, Magnesium 1.9, b- Hydroxybutyric mmol/L 5.5 H, POC Glucose > 500 H* 02/05/25 03:44: Urine Color Straw, Urine Clarity Clear, Urine pH 6.0, Ur Specific [place] 1.010, Urine Protein 30 H, Urine Glucose (UA) 1000 H, Urine Ketones 150 A*, Urine Occult Blood 25 H, Urine Nitrite Negative, Urine BilirubinNegative, Urine Urobilinogen Normal, Ur Leukocyte Esterase Negative, Urine RBC 0-5 SEEN, Urine WBC 0 SEEN, Ur Squamous Epith Cells 0 SEEN, Urine Bacteria 0 SEEN, Urine Mucus 0 SEEN 02/05/25 03:59: POC Glucose 430 H 02/05/25 04:56: POC Glucose 308 H 02/05/25 05:59: POC Glucose 269 H 02/05/25 06:16: WBC 13.1 H, RBC 4.29 L, Hgb 10.4 L, Hct 32.5 L, MCV 75.8 L, MCH 24.2 L, MCHC 32.0, RDW Std Deviation 44.2 H, RDW Coeff of Alec 16.2 H, Plt Count 297, MPV 10.8, Immature Gran % (Auto) 0.300, Neut % (Auto) 52.3, Lymph % (Auto) 34.1, Rincon % (Auto) 8.5, Eos % (Auto) 4.2, Baso % (Auto) 0.6, Absolute Neuts (auto) 6.8, Absolute Lymphs (auto) 4.47, Nucleated RBC % 0, Atypical Lymphocytes1+, Sodium 137, Potassium 3.7, Chloride 103, Carbon Dioxide 22.9, Anion Gap 12, BUN 14, Creatinine 0.61 L, Estim Creat Clear Calc 157.97, Est GFR (MDRD) Non-Af 135, BUN/Creatinine Ratio 23.2 H, Glucose 248 H, Hemoglobin A1c 15.5 H, Calcium 8.0 02/05/25 06:55: POC Glucose 181 H 02/05/25 08:02: POC Glucose 159 H 02/05/25 09:06: POC Glucose 139 H 02/05/25 09:15: Sodium 141, Potassium 3.9, Chloride 106, Carbon Dioxide 26.0, Anion Gap 9, BUN 12, Creatinine 0.61 L, Estim Creat Clear Calc 157.97, Est GFR (MDRD) Non-Af 135, BUN/Creatinine Ratio 20.0, Glucose 155 H, Calcium 8.2 02/05/25 10:04: POC Glucose 158 H 02/05/25 11:02: POC Glucose 169 H 02/05/25 12:03: POC Glucose 149 H 02/05/25 12:05: Sodium 137, Potassium 3.4, Chloride 105, Carbon Dioxide 26.0, Anion Gap 7, BUN 10, Creatinine 0.51 L, Estim Creat Clear Calc 188.95, Est GFR (MDRD) Non-Af 142, BUN/Creatinine Ratio 20.0, Glucose 170 H, Calcium 7.7 02/05/25 13:18: POC Glucose 138 H Microbiology: Microbiology 02/05/25 06:52 Nasal Secretion MRSA (PCR) - Final D/C Instructions DC O2, CPAP, BIPAP Needs Home O2 Discharge instructions: No Meaningful Use Info Meaningful Use Meaningful Use Diagnoses (Choose all that apply): None applicable Ischemic Stroke Statin Dosing Therapy Reference: STATIN DOSE THERAPY REFERENCE: * Patients > 75 years receive moderate or high dose statin therapy. * Patients 75 years or YOUNGER should receive HIGH intensity statin dose unless contraindicated. You will be required to document reason for non-treatment if statin daily dose does not meet guidelines. HIGH DOSE STATIN THERAPY DAILY Atorvastatin > than or = to 40 mg Rosuvastatin > than or = to 20 mg Amlodipine + Atorvastatin > than or = to 2.5/40 mg Ezetimibe + Simvastatin 10/80 mg Simvastatin 80mg Discharge Plan Admission Admit Date/Time: 02/05/25 03:44 Attending Provider: Alo Zambrano Primary Care Provider: Care Physician,No Primary Consulting Providers: Sarah Oh Discharge Orders/Prescriptions Prescriptions: No Action insulin lispro 100 UNIT/ML insulin pen See Rx Instructions SQ TIDCM Rx Instructions: SLIDING SCALE SQ 3 times daily with meals; +SLIDING SCALE insulin glargine [Lantus Solostar U-100 Insulin] 100 unit/mL (3 mL) insulin pen 30 unit subcut QPM insulin glargine [Lantus U-100 Insulin] 100 unit/mL solution 35 unit subcut QHS insulin lispro 100 unit/mL solution 25 unit subcut TIDCM Patient Comments: inject 25 three times a day (DME) insulin syringe-needle U-100 [TRUEplus Insulin] 0.5 mL 31 gauge x 5/16 syringe 1 syringe MISCELLANEOUS 4X/DAY ondansetron 8 mg tablet,disintegrating 8 mg PO Q8H PRN (Reason: nausea and vomiting) Qty: 12 0RF Referrals / Follow Up: Care Physician,No Primary [Primary Care Provider] - Disposition Disposition (needs filled in before D/C Order can be placed): Against Medical Advice Charges/Coding Visit Charges Inpatient E&M: 54265 Disch Hosp >30min 02/05/25 1645 <Electronically signed by Alo Zambrano MD> Cosigner Signature (if applicable): CC: Dr. Alo Zambrano MD; No Primary Care Physician~ Signed [facility] Work Phone: Evaluation note* Diagnosis Uncontrolled type 1 diabetes mellitus with hypoglycemia without coma (HCC)- Primary documented in this encounter [facility] note* Diagnosis Uncontrolled type 1 diabetes mellitus with hypoglycemia without coma (HCC) documented in this encounter [facility] noteNo assessment information available[facility] Work Phone: Evaluation note* Diagnosis Onset Date Resolution Status Acute dehydration acute Acute hyperkalemia acute FR[place]LIN (acute kidney injury) [place] DKA, type 1 acute Hyperphosphatemia acute Noncompliance with medication regimen acute Pseudohyponatremia acute [facility] Work Phone: Evaluation note* Diagnosis Uncontrolled type 1 diabetes mellitus with hypoglycemia without coma (HCC) documented in this encounter [facility] note* Diagnosis Uncontrolled type 1 diabetes mellitus [...] spinal cord injury documented in this encounter [facility] note* Diagnosis Onset Date Resolution Status Noncompliance with medication regimen acute Acute dehydration resolved Acute hyperkalemia resolved FRANKLIN (acute kidney injury) re solved DKA, type 1 resolved Hyperphosphatemia resolved Pseudohyponatremia resolved [facility] Work Phone: Evaluation note* Diagnosis Chest pain, unspecified type- Primary High blood sugar Other abnormal glucose [facility] AP[facility]MENT CANCELLED- Primary Uncontrolled type 1 diabetes mellitus with hypoglycemia without coma (HCC) Type I (juvenile type) diabetes mellitus without mention of complication, not stated as uncontrolled (HCC) Type I (juvenile type) diabetes mellitus without mention of complication, not stated as uncontrolled [facility] Onset Date Resolution Status FRANKLIN (acute kidney injury) [place] DKA (diabetic ketoacidoses) acute Hematemesis of unknown cause acute Lactic acidosis acute Noncompliance with medication regimen acute [facility] Work Phone: Evaluation note* Diagnosis Uncontrolled type 1 diabetes mellitus with hypoglycemia without coma (HCC) [facility] Diagnosis Onset Date Resolution Status Noncompliance with medication regimen acute FRANKLIN (acute kidney injury) re solved DKA (diabetic ketoacidoses) resolved Hematemesis of unknown cause resolved Lactic acidosis resolved [facility] Work Phone: Evaluation note* Diagnosis Onset Date Resolution Status Admit Date DKA (diabetic ketoacidosis) acute February 05, 2025 3:44am Hyperglycemia acute February 05, 2025 3:44am Vomiting acute February 05 3:44am [facility] Work Phone: History and physical note Author Sarah Oh [facility] Note Date/Time February 05, 2025 4:01 am [facility] Medical Records Department [address] [place] [address] H&P Exam - Hospitalist 02/05/25 0343 MR#: [id number] Acct: [id number] Name: UNA COSBY Rep #:[id number] : 1995 29 From: Sarah Oh MD PCP: Care Physician,No Primary Status :ADM IN Location: ICU CVICU20 2-1 HPI - General General Date of Admission: 02/05/25 Date of Service: 02/05/25 Chief Complaint: N/V, elevated BS. HPI Narrative The patient is a 29 y/o M w/ PMHx: Chronic microcytic anemia, IDDM, Anxiety and Depression, Chronic cognitive impairment with learning debilities chart reported, Tobacco use who presents to the [facility] ED on 02/05/2025 with history of onset of nausea and emesis starting at 6 PM the day prior to presentation with significantly elevated blood sugar despite taking hismedications with no recent fevers or chills but [...] 1 L normal saline, Zofran 4 mg IVx 1 and initiated on an insulin drip. [facility] Medical History Noncompliance with medication regimen Anxiety and depression Tobacco use Chronic anemia Learning difficulty due to cognitive limitations H/O fracture of skull Type I diabetes mellitus, uncontrolled Home Medications ?Medication ?Instructions ?Recorded ?Last Taken ?Type insulin lispro 100 unit/mL See Rx Instructions SQ TIDC M short 03/05/21 03/04/21 History subcutaneous pen acting insulin insulin glargine 100 unit/mL (3 30 unit subcut QPM linda betes 08/18/22 Unknown History mL) subcutaneous pen (Lantus Solostar U-100 Insulin) insulin glargine 100 unit/mL 35 unit subcut QHS Unknown History subcutaneous solution (Lantus U-100 Insulin) insulin lispro 100 unit/mL 25 unit subcut TIDCM Unknown History subcutaneous solution insulin syringe-needle U-100 0.5 10/19/24 Unknown His tory mL 31 gauge x 5/16 (TRUEplus Insulin) ondansetron 8 mg disintegrating 8 [...] chest pain, chest pressure or chest discomfort, palpitations,edema, orthopnea, syncopal events. RESPIRATORY: + Mild dyspnea. No cough or sputum, wheezing, hemoptysis. GASTROINTESTINAL: + anorexia, nausea, vomiting. No diarrhea, abdominal pain, melena, BRBPR. GENITOURINARY: No dysuria, frequency, urgency or retention. NEUROLOGICAL: No headache, dizziness, syncope, paralysis, ataxia, numbness or tingling in the extremities, focal weakness, change in bowel or bladder control,seizure. MUSCULOSKELETAL: No muscle, back pain, joint pain [...] (BMI) 18.3 Physical Exam Narrative Physical Examination: General: Awake, alert, oriented x 3 and cooperative, laying in the ED bed, fatigued and disheveled appearing. Skin: Normal color, normal turgor, no icterus, no cyanosis except occasional stage ecchymoses, abrasion. HEENT: AT/NC, EOMI, PERRLA, dry MM, no carotid bruits or JVD noted. Lungs: Mildly diminished, greater bases, mildly increased respiratory rate but no distress, no rales, ronchi or wheezing. Heart: Tachycardic with regular rhythm; no gallop, rub audible. Abdomen: Soft, NTTP, ND, hyperactive BS, no appreciated HSM. Extremities: No cyanosis, no clubbing, no significant pitting edema, status postprevious trauma history with evidence of previous grafts. Neurological: Patient awake, alert, oriented as noted, cognitive function intact; pupils equally reactive to light and accommodation, cranial nerves grossly normal, moving all 4 extremities, no focal deficits, strength severely globally decreased secondary to acute presentation. Psychiatric: Affect appears flat, fatigued, ill-appearing, no acute evidence of depressive or anxiety feelings. Results Lab / Micro Data 02/05/25 02:22 02/05/25 02:22 Labs: Laboratory Results - last 24 hr 02/05/25 02:22: WBC 13.0 H, RBC 5.13, Hgb 12.3 L, Hct 39.3 L, MCV 76.6 L, MCH 24.0 L, MCHC 31.3 L, RDW Std Deviation 45.2 H, RDW Coeff of Alec 16.2 H, Plt Count 344, MPV 11.4, Immature Gran % (Auto) 0.200, Neut % (Auto) 55.6, Lymph % (Auto) 31.1, [place] % (Auto) 9.0, Eos % (Auto) 3.4, Baso % (Auto) 0.7, Absolute Neuts (auto) 7.3, Absolute Lymphs (auto) 4.05, Nucleated RBC % 0, Differential Comment SCANNED, Sodium 128 L, Potassium 4.5, Chloride 86 L, Carbon Dioxide 19.6L, Anion Gap 23 H, BUN 19, Creatinine 0.97, Estim Creat Clear Calc 99.02, Est GFR (MDRD) Non-Af 110, BUN/Creatinine Ratio 19.9, Glucose 736 H*, Calcium 10.0, POC Glucose > 500 H* Assessment & Plan Assessment/Plan (1) DKA (diabetic ketoacidosis): PLAN: Plan The patient is a 29 y/o M w/ PMHx: Chronic microcytic anemia, IDDM, Anxiety and Depression, Chronic cognitive impairment with learning debilities chart reported, Tobacco use who presents to the [facility] ED on 02/05/2025 with history of onset of nausea and emesis starting at 6 PM the day prior to presentation with significantly elevated blood sugar despite taking hismedications with no recent fevers or chills but persistent GI symptoms and elevated blood sugars prompted ED evaluation. #1. DKA w/ Diabetes mellitus type I: Will admit to the ICU, will continue on insulin drip, check serial K+, glucose w/ IVF changes pending these levels, serial chemistry, obtain mag, phos daily w/ repletion as needed, transition to home SC regimen when gap closed w/ overlap on drip, nutrition consultation. Maintain on IV PPI while n.p.o. status. Encouraged diet and insulin regimen compliance. Hemoglobin A1c requested. #2. Anxiety and depression: Per current list on a regimen, encourage continued outpatient follow-up and evaluation especially given #1. #3. Tobacco Abuse: Encouraged cessation, inpatient consultation per RT, NR if desired. #4. Chronic microcytic anemia: Admission hemoglobin 12.3, MCV 76.6, baseline hemoglobin primarily 12-13 range, stable, continue to closely trend, iron panel,ferritin, guaiac requested. #5. DVT prophylaxis: Lovenox. Charges/Coding Visit Charges Inpatient E&M: 41776 Init Hosp L3 02/05/25 0401 <Electronically signed by Sarah Oh MD> Cosigner Signature (if applicable): CC: Dr. Sarah Oh MD; No Primary Care Physician~ Signed [facility] Work Phone: History and physical note Author Marcelina Erickson [facility] Note Date/Time February 27, 2025 3:01 pm [facility] Medical Records Department [address] [place] [address] H&P Exam - Hospitalist 02/27/25 1452 MR#: [id number] Acct: [id number] Name: UNA COSBY Rep #:[id number] : 1995 29 From: Marcelina Erickson MD PCP: Care Physician,No Primary Status :ADM IN Location: ICU CVICU20 3-1 HPI - General General Date of Admission: 02/27/25 Date of Service: 02/27/25 Chief Complaint: Heart palpitations HPI Narrative UNA OCSBY, is [id number] male history of type 1 diabetes and tobacco [facility]epresent[facility] 02/27[facility]2025 with complaints of heart palpitations. In the ED temp 97.4, heart rate 115 with a blood pressure 138/89,respiratory rate 22 pulse ox 100% on room air. CBC with white blood cell count 8.8 and hemoglobin of 12, BMP with sodium of 129, potassium 5.3, chloride 91, bicarb 15.6 with an anion gap of 22, BUN 11 with a creatinine of 1.02 up from baseline of about 0.65. Glucose found to be 865. Patient suspected to be in DKA so he was given IV fluids, started on insulin drip and UA and beta hydroxybutyrate ordered. Hospitalist contacted for admission for DKA. Patient evaluated at bedside, reports that he came in because he began having heart palpitations earlier today but ROS otherwise completely negative. Says he has some chronic pain diffusely but nothing that is new. Said he only ate a salad today and that he did not take his insulin. Endorses using about 25 units of long-acting in the morning with sliding scale, sliding scale throughout the day and 30 of long-acting at bedtime. Per patient he reports compliance [facility] Medical History Noncompliance with medication regimen Anxiety and depression Tobacco use Chronic anemia Learning difficulty due to cognitive limitations H/O fracture of skull Type I diabetes mellitus, uncontrolled Home Medications ?Medication ?Instructions ?Recorded ?Last Taken ?Type insulin lispro 100 unit/mL See Rx Instructions SQ TIDC M short 03/05/21 03/04/21 History subcutaneous pen acting insulin insulin glargine 100 unit/mL (3 30 unit subcut QPM linda betes 08/18/22 Unknown History mL) subcutaneous pen (Lantus Solostar U-100 Insulin) insulin glargine 100 unit/mL 35 unit subcut QHS diabet es 10/19/24 Unknown History subcutaneous solution (Lantus U-100 Insulin) insulin lispro 100 unit/mL 25 unit subcut TIDCM diabet es 10/19/24 Unknown History subcutaneous solution insulin syringe-needle U-100 0.5 10/19/24 Unknown His tory mL 31 gauge x 5/16 (TRUEplus Insulin) ondansetron 8 mg disintegrating 8 mg PO Q8H PRN nausea and 12/14/24 Unknown Rx tablet vomiting #12 tabs Allergy/AdvReac Type Severity Reaction Status Date / Time No Known Allergies Allergy Verified 02/27/25 12:27 Family History Father Diabetes Mother , Age 26. Heart disease CAD (coronary artery disease) Hypertension Heart failure Surgical History H/O skin graft Social History household members: family Smoking Status: Current some day smoker tobacco type: cigarettes, e-cigarettes and smokeless tobacco Smokeless tobacco user: chewing tobacco second hand exposure: Yes alcohol intake: never substance use type: does not use ROS ROS Narrative General: Denies fever/chills HENT: Denies headache, denies stuffy nose, denies sore throat EYES: Denies changes in vision Resp: Denies cough, denies shortness of breath Cardiac: Denies chest pain, came in because of palpitations GI: Denies abdominal pain, denies changes in bowel, denies nausea/vomiting : Denies changes in urination Extremity: Denies swelling MSK: Denies weakness, has some various aches and pains which she reports are chronic Neuro: Denies any numbness/tingling Heme: Denies any bleeding or bruising Skin: Denies rashes Psychiatric: No complaints voiced Vital Signs Vital Signs Vital Signs: 02/27/25 12:26 02/27/25 13:29 02/27/25 13:30 Temperature 97.4 F L Temperature Source Oral Pulse Rate 115 H 105 H Pulse Rate [Lying] Pulse Rate [Sitting (for 1 minute prior to obtaining)] Pulse Rate [Standing (for 1 minute prior to obtaining)] Respiratory Rate 22 H 24 H Respiratory Effort Normal Non-Labored Blood Pressure 138/89 H 115/88 H Blood Pressure [Lying] Blood Pressure [Sitting (for 1 minute prior to obtaining)] Blood Pressure [Standing (for 1 minute prior to obtaining)] Blood Pressure Mean 105 97 Blood Pressure Mean [Lying] Blood Pressure Mean [Sitting (for 1 minute prior to obtaining)] Blood Pressure Mean [Standing (for 1 minute prior to obtaining)] Pulse Ox 100 97 Oxygen Delivery Method Room Air Room Air 02/27/25 14:00 Temperature Temperature Source Pulse Rate Pulse Rate [Lying] 95 Pulse Rate [Sitting (for 1 minute prior to obtaining)] 99 Pulse Rate [Standing (for 1 minute prior to obtaining)] 112 H Respiratory Rate Respiratory Effort Blood Pressure Blood Pressure [Lying] 97/60 Blood Pressure [Sitting (for 1 minute prior to obtaining)] 112/76 Blood Pressure [Standing (for 1 minute prior to obtaining)] 110/75 Blood Pressure Mean Blood Pressure Mean [Lying] 72 Blood Pressure Mean [Sitting (for 1 minute prior to obtaining)] 88 Blood Pressure Mean [Standing (for 1 minute prior to obtaining)] 86 Pulse Ox Oxygen Delivery Method Weight Weight: 61.507 kg Body Mass Index (BMI) 18.3 Physical Exam Narrative General: Alert, no apparent distress HEENT: Atraumatic, normocephalic Eyes: Anicteric, normal conjunctiva, extraocular movements grossly intact Neck: Supple Respiratory: Clear to auscultation bilaterally, normal respiratory effort Cardiovascular: Low-grade sinus tachycardia GI: Soft, nontender, nondistended Extremities: No edema Musculoskeletal: Moving all extremities Neuro: No overt focal neurological deficits Skin: No rashes appreciated Psych: Cooperative, somewhat odd affect and random almost inappropriate laughterbut is calm and pleasant Results Lab / Micro Data 02/27/25 13:26 02/27/25 13:26 Labs: Laboratory Results - last 24 hr 02/27/25 13:26: WBC 8.8, RBC 4.94, Hgb 12.0 L, Hct 40.1, MCV 81.2, MCH 24.3 L, MCHC 29.9 L, RDW Std Deviation 51.4 H, RDW Coeff of Alec 17.4 H, Plt Count 268, MPV 11.1, Immature Gran % (Auto) 0.500, Neut % (Auto) 59.1, Lymph % (Auto) 28.6,[place] % (Auto) 7.6, Eos % (Auto) 3.4, Baso % (Auto) 0.8, Absolute Neuts (auto) 5.2, Absolute Lymphs (auto) 2.53, Nucleated RBC % 0, Sodium 129 L, Potassium 5.3H, Chloride 91 L, Carbon Dioxide 15.6 L, Anion Gap 22 H, BUN 11, Creatinine 1.02, Estim Creat Clear Calc 94.64, Est GFR (MDRD) Non-Af 103, BUN/Creatinine Ratio 11.0, Glucose 865 H*, Calcium 8.4 02/27/25 14:35: Urine Color Straw, Urine Clarity Clear, Urine pH 6.0, Ur Specific [place] 1.010, Urine Protein 15 H, Urine Glucose (UA) 1000 H, Urine Ketones 50 H, Urine Occult Blood 10 H, Urine Nitrite Negative, Urine Bilirubin Negative, Urine Urobilinogen Normal, Ur Leukocyte Esterase Negative Rhythm Strip Rhythm Strip: T waves appear prominent. In light of this we will obtain EKG. Rate: 120 Assessment & Plan Assessment/Plan (1) Diabetic ketoacidosis associated with type 1 diabetes mellitus: (2) Acute dehydration: PLAN: Plan #DKA in setting of chronic type 1 diabetes -Serum glucose in ED 865, anion gap 22 and bicarb of 15.6 -Urine ketones ordered and pending -Serum beta hydroxybutyrate ordered and pending -Admit to intensive care unit -N.p.o. -Insulin drip started -Aggressive fluid hydration -Glucose checks and DKA protocol -BMP every 4H -Replace electrolytes per protocol -I's and O's -A1c not ordered because patient had A1c 02/05/2025 which was 15.5 -When serum glucose is <250 mg/dl, change IV fluids to D5%1/2NS at 150 ml/hr andcontinue insulin drip as per nomogram - Of note patient endorsed compliance with his regimen however seems slightly unclear as to what he was supposed to be taking and it seems not to match what is documented in the EMR, additionally had an A1c 1 month ago of 15.5, if patient does not already have an home appraiser would benefit from establishingcare with 1 # FRANKLIN - Patient's creatinine 1.02 however baseline is about 0.65 - Aggressive IV fluids as above # Hyperkalemia - With potassium of 5.3, did have peaked T waves however patient now receiving aggressive IV fluids and insulin, suspect that this will decrease with these interventions - Trending BMPs every 4 #Tobacco use -Primarily chew tobacco -Advise cessation - Patient agreeable for nicotine patch #DVT ppx: SCDs Marcelina Erickson MD Charges/Coding Visit Charges Inpatient E&M: 77980 Init Hosp L2 02/27/25 1501 <Electronically signed by Marcelina Erickson MD> Cosigner Signature (if applicable): CC: Dr. Marcelina Erickson MD; No Primary Care Physician~ Signed [facility] Work Phone: Hospital Discharge instructions Additional [...] care physician for further outpatient evaluation and management.[facility] Work Phone: Hospital Discharge instructions Additional [...] workup was largely normal with no findings server assistant with heart attack or other acute cardiac/heart processWThe [facility] Work Phone: Hospital Discharge instructions Additional Instructions Follow-up with your PCP and return for any worsening symptoms.[facility] Work Phone: Hospital Discharge instructions Additional Instructions I am not sure what the cause of your palpitations and is. Your screening labs look normal other than very high glucose over 480. It is important you take your insulin as scheduled and make good food choices for a diabetic diet. 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 Advance Directive(s) 03/23/2018 2:01 PM Advance Directive Response Recorded Date/ Time Advance Directives No October 08 6:31pm Living Will No January 31, 2022 10:37am Power of [place] No January 31 10:37am Advance Directive Response Recorded Date/ Time Advance Directives No October 08 6:31pm Living Will No 2022 10:52am Power of [place] No March 02 10:52am Advance Directive Response Recorded Date/ Time Advance Directives No October 08 6:31pm Living Will No 2022 12:30pm Power of [place] No March 02 12:30pm Advance Directive Response Recorded Date/ Time Advance Directives No October 08 5:31pm Living Will No June 30 10:32pm Power of [place] No June 30, 2022 10:32pm Advance Directive Response Recorded Date/ Time Advance Directives No October 08 5:31pm Living Will No August 18 11:46am Power of [place] No August 18, 2022 11:46am Advance Directive Response Recorded Date/ Time Advance Directives No October 08 5:31pm Living Will No August 24 9:15pm Power of [place] No August 24, 2022 9:15pm Advance Directive Response Recorded Date/ Time Advance Directives No October 08 5:31pm Living Will No October 13, 2022 3:59am Power of [place] No October 13 3:59am Advance Directive Response Recorded Date/ Time Advance Directives No October 08 6:31pm Living Will No October 13, 2022 4:59am Power of [place] No October 13 4:59am Advance Directive Response Recorded Date/ Time Advance Directives No October 08 6:31pm Living Will No November 17, 2022 2:01am Power of [place] No November 17 2:01am Advance Directive Response Recorded Date/ Time Advance Directives No October 08 6:31pm Living Will No December 03, 2022 8:34pm Power of [place] No December 03 8:34pm Advance Directive Response Recorded Date/ Time Advance Directives No October 08 6:31pm Living Will No December 09, 2022 6: 27pm Power of [place] No December 09, 2022 6:27pm Advance Directive Response Recorded Date/ Time Advance Directives No October 08 6:31pm Living Will No January 03, 2023 1 0:21pm Power of [place] No January 03, 2023 10:21pm Advance Directive Response Recorded Date/ Time Living Will No October 19, 2024 12:14am Power of [place] No October 19 12:14am Advance Directives No October 08 6:31pm Advance Directive Response Recorded Date/ Time Living Will No November 11, 2024 5:45pm Do you have a Healthcare Power of [place]? No November 11, 2024 5:45pm Living Will No October 19, 2024 12:14am Do you have a Healthcare Power of [place]? No October 19, 2024 12:14am Advance Directives No October 08 6:31pm Advance Directive Response Recorded Date/ Time Living Will No November 11, 2024 5:45pm Do you have a Healthcare Power of [place]? No November 11, 2024 5:45pm Do you have a Healthcare Power of [place]? No December 12, 2024 1:02pm Living Will No October 19, 2024 12:14am Do you have a Healthcare Power of [place]? No October 19, 2024 12:14am Do you have a Healthcare Power of [place]? No December 13, 2024 9:49pm Advance Directives No October 08 6:31pm Advance Directive Response Recorded Date/ Time Living Will No November 11, 2024 5:45pm Do you have a Healthcare Power of [place]? No November 11, 2024 5:45pm Do you have a Healthcare Power of [place]? No December 12, 2024 1:02pm Do you have a Healthcare Power of [place]? No January 26, 2025 12:12pm Living Will No October 19, 2024 12:14am Do you have a Healthcare Power of [place]? No October 19, 2024 12:14am Do you have a Healthcare Power of [place]? No December 13, 2024 9:49pm Advance Directives No October 08 6:31pm Advance Directive Response Recorded Date/ Time Living Will No November 11, 2024 5:45pm Do you have a Healthcare Power of [place]? No November 11, 2024 5:45pm Do you have a Healthcare Power of [place]? No December 12, 2024 1:02pm Do you have a Healthcare Power of [place]? No January 26, 2025 12:12pm Living Will No October 19, 2024 12:14am Do you have a Healthcare Power of [place]? No October 19, 2024 12:14am Do you have a Healthcare Power of [place]? No December 13, 2024 9:49pm Do you have a Healthcare Power of [place]? No February 05, 2025 2:23am Advance Directives No October 08 6:31pm Advance Directive Response Recorded Date/ Time Living Will No November 11, 2024 5:45pm Do you have a Healthcare Power of [place]? No November 11, 2024 5:45pm Do you have a Healthcare Power of [place]? No December 12, 2024 1:02pm Do you have a Healthcare Power of [place]? No January 26, 2025 12:12pm Living Will No October 19, 2024 12:14am Do you have a Healthcare Power of [place]? No October 19, 2024 12:14am Do you have a Healthcare Power of [place]? No December 13, 2024 9:49pm Do you have a Healthcare Power of [place]? No February 05, 2025 4:26am Advance Directives No October 08 6:31pm Advance Directive Response Recorded Date/ Time Living Will No November 11, 2024 5:45pm Do you have a Healthcare Power of [place]? No November 11, 2024 5:45pm Do you have a Healthcare Power of [place]? No December 12, 2024 1:02pm Do you have a Healthcare Power of [place]? No January 26, 2025 12:12pm Do you have a Healthcare Power of [place]? No December 13, 2024 9:49pm Do you have a Healthcare Power of [place]? No February 05, 2025 4:26am Do you have a Healthcare Power of [place]? No February 27, 2025 12:52pm Advance Directives No October 08 16 6:31pm [...] 9:10pm PALPITATIONS January 26, 2025 11:2 2am Chief Complaint Admit Date CHEST PAIN October 19, 2024 12: 09am N/V November 11, 2024 5:45 pm shoulder pain December 12, 2024 12:35p m TAKEN PAIN MEDS,N/V, DIZZY December 13, 2024 9:10pm PALPITATIONS January 26, 2025 11:2 2am DKA February 05, 2025 3:44 am Reason for Visit Admit Date DKA (diabetic ketoacidosis) February 05, 2 025 3:44am Hyperglycemia February 05, 2025 3:44 am Vomiting February 05, 2025 3:44 am Chief Complaint Admit Date N/V November 11, 2024 5:45 pm shoulder pain December 12, 2024 12:35p m TAKEN PAIN MEDS,N/V, DIZZY December 13, 2024 9:10pm PALPITATIONS January 26, 2025 11:2 2am DKA February 05, 2025 3:44 am DKA February 27, 2025 2:52 pm Reason for Visit Admit Date DKA (diabetic ketoacidosis) February 05, 2 025 3:44am Hyperglycemia February 05, 2025 3:44 am Vomiting February 05, 2025 3:44 am Acute dehydration February 27, 2025 2:52 pm Diabetic ketoacidosis associated with ty pe 1 diabetes mellitus February 27, 2025 2:52pm Reason for Referral Specialty Diagnoses / Procedures Referred By Yee t Referred To Contact Diagnoses Uncontrolled type 1 diabetes mellitus with hypoglycemia without coma (HCC) Radha Hameed, 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[employer] [address] [place] [address] Referral ID Status Reason Start Date Expiration Date Visits Re quested Visits Authorized [id number] Closed 1 1 Additional Source Comments (unrecognized sect ion and content) No Status Records FoundNo Status Records FoundNo Status Records FoundNo Status Records FoundNo Status Records Found INFORMATION SOURCE (unrecogn ized section and content) DATE CREATED AUTHOR 01/25/2018 [facility] DATE CREATED AUTHOR AUTHOR'S ORGANIZ ATION 05/20/2018 [facility] DATE CREATED AUTHOR AUTHOR'S ORGANIZ ATION 05/27/2018 [facility] DATE CREATED AUTHOR AUTHOR'S ORGANIZ ATION 10/12/2024 [facility] DATE CREATED AUTHOR AUTHOR'S ORGANIZ ATION 02/25/2025 [facility] Source Comments (unrecognize d section and content) In the event this informatio n is protected by the Federal Confidentiality of Alcohol and Drug Abuse Patient Records regulations: The Federal rules restrict any use of the information to criminally investigate or prosecute any alcohol or drug abuse patient.[facility] the event this information is protected by the Federal Confidentiality of Alcohol and Drug Abuse Patient Records regulations: The Federal rules restrict any use of the information to criminally investigate or prosecute any alcohol or drug abuse patient.[facility] Center[facility] the event this information is protected by the Federal Confidentiality of Alcohol and Drug Abuse Patient Records regulations: The Federal rules restrict any use of the information to criminally investigate or prosecute any alcohol or drug abuse patient.[facility] the event this information is protected by the Federal Confidentiality of Alcohol and Drug Abuse Patient Records regulations: The Federal rules restrict any use of the information to criminally investigate or prosecute any alcohol or drug abuse patient.[facility] the event this information is protected by the Federal Confidentiality of Alcohol and Drug Abuse Patient Records regulations: The Federal rules restrict any use of the information to criminally investigate or prosecute any alcohol or drug abuse patient.[facility] the event this information is protected by the Federal Confidentiality of Alcohol and Drug Abuse Patient Records regulations: The Federal rules restrict any use of the information to criminally investigate or prosecute any alcohol or drug abuse patient.[facility] the event this information is protected by the Federal Confidentiality of Alcohol and Drug Abuse Patient Records regulations: The Federal rules restrict any use of the information to criminally investigate or prosecute any alcohol or drug abuse patient.[facility] the event this information is protected by the Federal Confidentiality of Alcohol and Drug Abuse Patient Records regulations: The Federal rules restrict any use of the information to criminally investigate or prosecute any alcohol or drug abuse patient.[facility] Center[facility] the event this information is protected by the Federal Confidentiality of Alcohol and Drug Abuse Patient Records regulations: The Federal rules restrict any use of the information to criminally investigate or prosecute any alcohol or drug abuse patient.[facility] the event this information is protected by the Federal Confidentiality of Alcohol and Drug Abuse Patient Records regulations: The Federal rules restrict any use of the information to criminally investigate or prosecute any alcohol or drug abuse patient.[facility] Center[facility] the event this information is protected by the Federal Confidentiality of Alcohol and Drug Abuse Patient Records regulations: The Federal rules restrict any use of the information to criminally investigate or prosecute any alcohol or drug abuse patient.[facility] Center[facility] the event this information is protected by the Federal Confidentiality of Alcohol and Drug Abuse Patient Records regulations: The Federal rules restrict any use of the information to criminally investigate or prosecute any alcohol or drug abuse patient.[facility] Center[facility] the event this information is protected by the Federal Confidentiality of Alcohol and Drug Abuse Patient Records regulations: The Federal rules restrict any use of the information to criminally investigate or prosecute any alcohol or drug abuse patient.[facility] Center[facility] the event this information is protected by the Federal Confidentiality of Alcohol and Drug Abuse Patient Records regulations: The Federal rules restrict any use of the information to criminally investigate or prosecute any alcohol or drug abuse patient.[facility] Reason for Visit (unrecogniz ed section and content) Reason Onset Date Comments PHMA/Care Gap Outreach 11/17/2021 Reason Comments Insurance Authorization Reason Onset Date Comments Transition Of Care 03/04/2022 Reason Comments Medication Problem Reason Onset Date Comments Refill Request 06/07/2022 Reason Comments Urgent value Reason Comments Results Reason Comments Chest Pain Appointment Cancelled Reason Comments Insurance Authorization Maria Teresa Avilaostar Reason Comments Refill Request Reason Comments Appointment Reason Comments Letter Care Teams (unrecognized sec tion and content) Police Lieutenant Relationship Specialty Start Date End Date Deangelo Noel MD [address] [place] [address] PCP - General Family Practice 09/30/18 [facility] [address] [place] [address] Pharmacist Pharmacy 07/14/18 Darren Zarate, [address] [place] [id number] Sheet Metal Helper Emergency Medicine 06/04/20 Police Lieutenant Relationship Specialty Start Date End Date Deangelo Noel MD [address] [place] [address] PCP - General Family Practice 09/30/18 [facility] [address] [facility] [place] [address] Pharmacist Pharmacy 07/14/18 Darren Zarate DO [address] [place] [id number] Sheet Metal Helper Emergency Medicine 06/04/20 Police Lieutenant Relationship Specialty Start Date End Date Deangelo Noel MD [address] [place] [address] PCP - General Family Practice 09/30/18 Fidelina Rogel, [facility] [address] [place] [address] Pharmacist Pharmacy 07/14/18 Darren Zarate, DO [address] [place] [address] Sheet Metal Helper Emergency Medicine 06/04/20 Police Lieutenant Relationship Specialty Start Date End Date Deangelo Noel MD [address] [facility] [place] [address] PCP - General Family Medicine 09/30/18 [facility] ibra[facility], [facility] [address] [place] [address] Pharmacist Pharmacy 07/14/18 Darren Zarate, DO [address] [place] [id number] Sheet Metal Helper Emergency Medicine 06/04/20 Police Lieutenant Relationship Specialty Start Date End Date Deangelo Noel MD [address] [facility] [place] [address] PCP - General Family Medicine 09/30/18 Fidelina Rogel, [facility] [address] [place] [address] Pharmacist Pharmacy 07/14/18 Darren Zarate, DO [address] [place] [address] Sheet Metal Helper Emergency Medicine 06/04/20 Police Lieutenant Relationship Specialty Start Date End Date Deangelo Noel MD [address] [place] [address] PCP - General Family Medicine 09/30/18 [facility] ibrahim, [facility] [address] [place] [address] Pharmacist Pharmacy 07/14/18 Darren Zarate, DO [address] [place] [address] Sheet Metal Helper Emergency Medicine 06/04/20 Police Lieutenant Relationship Specialty Start Date End Date Deangelo Noel MD [address] [place] [address] PCP - General Family Medicine 09/30/[address] [facility] [address] [place] [address] Pharmacist Pharmacy 07/14/18 Darren Zarate, DO [address] [place] [address] Sheet Metal Helper Emergency Medicine 06/04/20 Police Lieutenant Relationship Specialty Start Date End Date Deangelo Noel MD [address] [place] [address] PCP - General Family Medicine 09/30/[address] [facility] [address] [place] [address] Pharmacist Pharmacy 07/14/18 Darren Zarate DO [address] [place] [address] Sheet Metal Helper Emergency Medicine 06/04/20 Police Lieutenant Relationship Specialty Start Date End Date Deangelo Noel MD [address] [place] [address] PCP - General Family Medicine 09/30/18 [facility] [address] [place] [address] Pharmacist Pharmacy 07/14/18 Darren Zarate DO [address] [place] [phone] Sheet Metal Helper Emergency Medicine 06/04/20 Team Status: Active Member [...] Care Provider Active Dr. Gatito Reed DO Emergency Provider Active Police Lieutenant Relationship Specialty Start Date End Date Phillip Howe, 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[employer] [address] [place] [address] PCP - General Family Medicine 09/22/22 09/22/22 [facility] [address] [place] [address] Pharmacist Pharmacy 07/14/18 Darren Zarate DO [address] [place] [address] Sheet Metal Helper Emergency Medicine 06/04/20 Police Lieutenant Relationship Specialty Start Date End Date [facility] [address] [place] [address] Pharmacist Pharmacy 07/14/18 Darren Zarate DO [address] [place] [id number] Sheet Metal Helper Emergency Medicine 06/04/20 Police Lieutenant Relationship Specialty Start Date End Date Fidelina Rogel, [facility] [address] [facility] [place] [address] Pharmacist Pharmacy 07/14/18 Darren Zarate, [address] [place] [address] Sheet Metal Helper Emergency Medicine 06/04/20 Team Status: Inactive Member [...] Status: Active Member Role Status Dates Deangelo ORELLAAN MD Primary Care Provider Active Dr. Keisha Handy DO Emergency Provider Active Dr. Isidro Cruz MD Admit Provider, At tending Provider, Other Provider Active Team Status: Inactive Member Role Status Kevin ORELLANA MD Primary Care Provider Active Dr. Darren Zarate DO Attending Provider, Emergency P rocatalina Active Team Status: Inactive Member Role Status [...] End: October 19, 2024 Dr. Keisha Handy DO Emergency Provider Active [...] End: January 26, 2025 Dr. Keisha Handy , Emergency Provider Active Start: January 26, 2025 End: January 26, 2025 Team Status: Active Member Role/Relationship Status Dates No Primary Care Physician Primary Care Provider Active Team Status: Inactive Member Role/Relationship Status Dates Dr. Keisha Handy DO Attending Provider Active Start: October 19, 2024 End: October 19, 2024 Dr. Keisha Handy DO Emergency Provider Active Start: October 19, 2024 End: October 19, 2024 No Primary Care Physician Primary Care Provider Active Start: October 19, 2024 End: October 19, 2024 Team Status: Inactive Member Role/Relationship Status Dates No Primary Care Physician Primary [...] November 11, 2024 Team Status: Inactive Member Role/Relationship Status Dates No Primary Care Physician Primary Care Provider Active Start: December 12, 2024 End: December 12, 2024 Dr. Arik Boswell MD Attending Provider Active Sta rt: December 12, 2024 End: December 12, 2024 Dr. Arik Boswell MD Emergency Provider Active Sta rt: December 12, 2024 End: December 12, 2024 Team Status: Inactive Member Role/Relationship Status Dates No Primary Care Physician Primary Care Provider Active Start: December 13, 2024 End: December 14, 2024 Dr. Juan Rivas MD Attending Provider Active Start: December 13, 2024 End: December 14, 2024 Dr. Juan Rivas MD Emergency Provider Active Start: December 13, 2024 End: December 14, 2024 Team Status: Inactive Member Role/Relationship Status Dates No Primary Care Physician Primary Care Provider Active Start: January 26, 2025 End: January 26, 2025 Dr. Keisha Handy DO Attending Provider Active Start: January 26, 2025 End: January 26, 2025 Dr. Keisha Handy DO Emergency Provider Active Start: January 26, 2025 End: January 26, 2025 Team Status: Active Member Role/Relationship Status Dates No Primary Care Physician Primary Care Provider Active Start: February 05, 2025 Dr. Babita Rivera DO Emergency Provider Active S tart: February 05, 2025 Dr. Sarah Oh MD Admit Provider Active St art: February 05, 2025 Dr. Sarah Oh MD Attending Provider Active Start: February 05, 2025 Dr. Sarah Oh MD Other Provider Active St art: February 05, 2025 Team Status: Inactive Member Role/Relationship Status Dates No Primary Care Physician Primary Care Provider Active Start: February 05, 2025 End: February 05, 2025 Dr. Babita Rivera , Emergency Provider Active S tart: February 05, 2025 End: February 05, 2025 Dr. Sarah Oh MD Admit Provider Active St art: February 05, 2025 End: February 05, 2025 Dr. Sarah Oh MD Other Provider Active St art: February 05, 2025 End: February 05, 2025 Dr. Alo Zambrano MD Attending Provider Active Start: February 05, 2025 End: February 05, 2025 Team Status: Inactive Member Role/Relationship Status Dates No Primary Care Physician Primary [...] November 11, 2024 Team Status: Inactive Member Role/Relationship Status Dates No Primary Care Physician Primary Care Provider Active Start: December 12, 2024 End: December 12, 2024 Dr. Arik Boswell MD Attending Provider Active Sta rt: December 12, 2024 End: December 12, 2024 Dr. Arik Boswell MD Emergency Provider Active Sta rt: December 12, 2024 End: December 12, 2024 Team Status: Inactive Member Role/Relationship Status Dates No Primary Care Physician Primary Care Provider Active Start: December 13, 2024 End: December 14, 2024 Dr. Juan Rivas MD Attending Provider Active Start: December 13, 2024 End: December 14, 2024 Dr. Juan Rivas MD Emergency Provider Active Start: December 13, 2024 End: December 14, 2024 Team Status: Inactive Member Role/Relationship Status Dates No Primary Care Physician Primary Care Provider Active Start: January 26, 2025 End: January 26, 2025 Dr. Keisha Handy DO Attending Provider Active Start: January 26, 2025 End: January 26, 2025 Dr. Keisha Handy DO Emergency Provider Active Start: January 26, 2025 End: January 26, 2025 Team Status: Inactive Member Role/Relationship Status Dates No Primary Care Physician Primary Care Provider Active Start: February 05, 2025 End: February 05, 2025 Dr. Babita Rivera DO Emergency Provider Active S tart: February 05, 2025 End: February 05, 2025 Dr. Sarah Oh MD Admit Provider Active St art: February 05, 2025 End: February 05, 2025 Dr. Sarah Oh MD Other Provider Active St art: February 05, 2025 End: February 05, 2025 Dr. Alo Zambrano MD Attending Provider Active Start: February 05, 2025 End: February 05, 2025 Team Status: Active Member Role/Relationship Status Dates No Primary Care Physician Primary Care Provider Active Start: February 27, 2025 Dr. Arik Boswell MD Emergency Provider Active Sta rt: February 27, 2025 Dr. Marcelina Erickson MD Admit Provider Active Star t: February 27, 2025 Dr. Marcelina Erickson MD Attending Provider Active Start: February 27, 2025 Dr. Marcelina Erickson MD Other Provider Active Star t: February 27, 2025 Goals (unrecognized section and content) Goals [...] BE BASED ON THE PRIMARY CLINICAL RECORDS. [facility] [employer] [facility]. provides no warranty or guarantee of the accuracy or completeness of information in this document.
[2025-02-27 21:08] LABS: Magnesium 1.8 mg/dL (1.5-2.2)
--- OUTSIDE RECORDS SUMMARY | 2025-02-27 21:18 | XMS RPT_ITS | CCD ---
Author Organization [facility] Care Team Providers Care Marketing Strategy Lead Name Role Phone [employer] Unavailable Ingrid ASSISTANT FARM OPERATIONS MANAGER, Edwina Bahena Unavailable [employer] Unavailable [employer] Unavailable [employer] Unavailable Alvin Pena DO Unavailable [employer] Unavailable ISIDRO BRAR Unavailable Unavailable ISIDRO BRAR Unavailable Unavailable TRISTAN, RON P Unavailable Unavailable ISIDRO BRAR Unavailable Unavailable BRAULIO REEVSE Unavailable Unavailable ZAN HENDRIX Unavailable Unavailable JUNE [...] Unavailable Ingrid DIAZ, Edwina J Unavailable [facility], [place] Unavailable Deangelo Noel MD Primary Care Provider Darren Zarate DO Unavailable MD Deangelo Noel Primary Care Provider Dr. Keisha Mcneill Emergency Provider Dr. Deangelo Farah Admit Provider Dr. Deangelo Farah Other Provider RICK Peguero Attending Provider Unavail able [facility], [place] Unavailable Deangelo Noel MD Primary Care Provider Darren Zarate DO Unavailable [facility], [place] Unavailable Deangelo Noel MD Primary Care Provider MD Deangelo Noel Primary Care Provider Dr. Keisha Mcneill Emergency Provider Dr. Deangelo Farah Admit Provider Dr. Deangelo Farah Other Provider RICK Peguero Attending Provider Unavail able [facility], [place] Unavailable Deangelo Noel MD Primary Care Provider Darren Zarate DO Unavailable MD Deangelo Noel Primary Care Provider Dr. Keisha Mcneill Emergency Provider Dr. Isidro Cruz Admit Provider Unavailable Dr. Isidro Cruz Attending Provider Unavailable Dr. Isidro Cruz Other Provider Unavailable Charles POST OFFICE MANAGER.ANNA, Phillip Primary Care Provider MD Deangelo Mcmillan [...] Unavailable Rozina PIERRE, Dr. Valdes Attending Provider [facility], Dr. Harris Referring Provider [facility], Dr. Harris Emergency Provider [facility], Dr. Harris Attending Provider Elbert MIRELES, Dr. [...] Provider Dr. Keisha Handy DO Emergency Provider Dre MIRELES, Dr. Hewitt Admit Provider Dre MIRELES, Dr. Hewitt Attending Provider [phone] Allergies Allergy Classification Reported Allergen(s) Allergy Type Date of Onset Reaction(s) Facility (1 source) Wheat bran; Translations: [WHEAT BRAN] Propensity to adverse reactions to drug (disorder) 8 AOF [facility] Repository (1 source) GLUTEN MEAL; Translations: [GLUTEN MEAL] Propensity to adverse reactions to drug (disorder) 8 [facility] Repository (20 sources) Gluten; Translations: [GLUTEN] Propensity to adverse reactions to drug (disorder) 8 Diarrhea [facility] Repository (12 sources) Wheat preparation Drug Allergy 2 [facility] Medications Current Medications Medication Drug Class(es) Dates [...] up to 60 units daily INSULIN LISPRO [id number] Edwina Quintero NP Start: 12-08-2016 End: 05-17-2017 [...] 10 units with every meal. INSULIN LISPRO [id number] Edwina Quintero NP Start: 11-09-2016 HUMALOG KWIKPE N 100 UNIT/ML SOPN Use 10 units with every meal. INSULIN LISPRO [id number] Edwina Qunitero NP Start: 10-19-2016 End: 12-08-2016 inject 10 [...] SOPN Use 30 units daily. INSULIN GLARGINE [id number] Edwina Quintero NP Start: 11-16-2016 BASAGLAR KWIKP EN 100 UNIT/ML SOPN Use 30 units daily. INSULIN GLARGINE [id number] Edwina Quintero NP Start: 10-19-2016 End: 01-20-2017 [...] SOPN Use 30 units daily. INSULIN GLARGINE [id number] Edwina Quintero NP Comment on above: Inject [...] Use with insulin pens. INSULIN PEN NEEDLE [id number] Edwina Quintero NP isopropyl alcohol 0.7 ml/ml [...] Auto (Unsp spec) [#/Vol] 2.53 10*3/uL 0.83-4.51 [facility] Absolute neutrophil countOrd ered By: Arik Boswell on 02-27-2025 Neutrophils (Bld) [#/Vol] 5.2 10*3/uL 2.0-7.7 [facility] Anion gap in Serum or Plasma Ordered By: Arik Boswell on 02-27-2025 Anion gap [Moles/Vol] 22 mmol/L High 5-15 [facility] Automated lymphocyte count a s percentage of total leukocytesOrdered By: Arik Boswell on 02-27-2025 Lymphocytes/100 WBC Auto (Unsp spec) 28.6 % 19-41 [facility] BUN/creatinine ratioOrdered By: Arik Boswell on 02-27-2025 Urea nitrogen/Creatinine [Mass ratio] 11.0 mg/mg 10-20 [facility] Basophil percentageOrdered B y: Arik Boswell on 02-27-2025 Basophils/100 WBC (Bld) 0.8 % 0-1 [facility] Bilirubin Test strip Ql (U)O rdered By: Arik Boswell on 02-27-2025 Bilirubin Ql (U) Negative Negative [facility] Carbon dioxide, total [Moles /volume] in Central venous bloodOrdered By: Arik Boswell on 02-27-2025 CO2 [Moles/Vol] 15.6 mmol/L Low 21.0-32.0 [facility] Chloride assayOrdered By: Dhiraj Boswell on 02-27-2025 Chloride [Moles/Vol] 91 mmol/L Low 98-108 [facility] Eosinophil percentageOrdered By: Arik Boswell on 02-27-2025 Eosinophils/100 WBC (Bld) 3.4 % 0-5 [facility] Erythrocyte distribution wid th ratioOrdered By: Arikerica Boswell on 02-27-2025 Erythrocyte distribution width (RBC) [Ratio] 17.4 % High 11.6-14.6 [facility] Erythrocyte distribution wid th standard deviationOrdered By: Arikerica Boswell on 02-27-2025 Erythrocyte distribution width (RBC) [Ratio] 51.4 fl High 35.1-43.9 [facility] Glomerular filtration rate ( GFR) estimation/1.73 sq m using serum, plasma, or whole bOrdered By: Arik Boswell on 02-27-2025 GFR/1.73 sq M.predicted among non-blacks MDRD (S/P/Bld) [Vol rate/Area] 103 mL/min/{1.73_m2} >60 [facility] Comment on above: mL/min/1.73m2 CKD-EP I Creatinine Equation (2020) Hematocrit Auto (Bld) [Volum e fraction]Ordered By: Arikerica Boswell on 02-27-2025 Hematocrit (Bld) [Volume fraction] 40.1 % 40-54 [facility] Hemoglobin measurementOrdere d By: Arik Boswell on 02-27-2025 Hemoglobin (Bld) [Mass/Vol] 12.0 g/dL Low 13.0-16.5 [facility] Immature granulocytes/100 WB C Auto (Bld)Ordered By: Arik Boswell on 02-27-2025 Immature granulocytes/100 WBC (Bld) 0.500 % 0.0-0.9 [facility] Comment on above: IG% - Immature Granu locytes (promyelocytes, myelocytes and metamyelocytes) > 1% indicates that a LEFT SHIFT is Present. Ketones Test strip Ql (U)Ord ered By: Arik Boswell on 02-27-2025 Ketones Ql (U) 50 mg/dl High Negative [facility] MCV (mean corpuscular volume ) determinationOrdered By: Arik Boswell on 02-27-2025 MCV (RBC) [Entitic vol] 81.2 fL 80-94 [facility] Mean corpuscular hemoglobin (MCH) determinationOrdered By: Arik Boswell on 02-27-2025 MCH (RBC) [Entitic mass] 24.3 pg Low 27.0-32.0 [facility] Mean corpuscular hemoglobin concentration (MCHC) determinationOrdered By: Arik Boswell on 02-27-2025 MCHC (RBC) [Mass/Vol] 29.9 g/dL Low 32-36 [facility] Mean platelet volume determi nationOrdered By: Arik Boswell on 02-27-2025 Platelet mean volume (Bld) [Entitic vol] 11.1 fL 6.2-12.0 [facility] Microscopic analysis of urin e for red blood cells (RBC)Ordered By: Arik Bosewll on 02-27-2025 Microscopic analysis of urine for red blood cells (RBC) 0-5 SEEN /hpf 0-5 [facility] Monocyte percentageOrdered B y: Arik Boswell on 02-27-2025 Monocytes/100 WBC (Bld) 7.6 % 0-10 [facility] Mucus LM Ql (Urine sed)Order ed By: Arik Boswell on 02-27-2025 Mucus Ql (Urine sed) 0 SEEN /hpf [facility] Neutrophil percentageOrdered By: Arik Boswell on 02-27-2025 Neutrophils/100 WBC (Bld) 59.1 % 47-70 [facility] Nitrite Test strip Ql (U)Ord ered By: Arik Boswell on 02-27-2025 Nitrite Ql (U) Negative Negative [facility] Nucleated red blood cell per centageOrdered By: Arik Boswell on 02-27-2025 Nucleated RBC/100 WBC (Bld) [Ratio] 0 % 0-5 [facility] Platelet countOrdered By: Dhiraj Boswell on 02-27-2025 Platelets (Bld) [#/Vol] 268 10*3/uL 150-450 [facility] Potassium measurement (mass/ volume)Ordered By: Arik Boswell on 02-27-2025 Potassium (Unsp spec) [Mass/Vol] 5.3 mmol/L High 3.3-5.1 [facility] Protein Test strip Ql (U)Ord ered By: Arik Boswell on 02-27-2025 Protein Ql (U) 15 mg/dl High Negative [facility] RBC Auto (Bld) [#/Vol]Ordere d By: Arik Boswell on 02-27-2025 RBC (Bld) [#/Vol] 4.94 10*6/uL 4.6-6.2 [facility] Serum creatinine measurement (mass/volume)Ordered By: Arik Boswell on 02-27-2025 Creatinine [Mass/Vol] 1.02 mg/dL 0.70-1.20 [facility] Serum glucose measurement (m ass/volume)Ordered By: Arik Boswell on 02-27-2025 Glucose [Mass/Vol] 865 mg/dL High 70-99 [facility] Comment on above: Critical Result(s) C alled at: 02/27/2025-14:22 by: Koko Oh to Dr. Boswell. Results read back by same. Serum or plasma calcium koby urement (mass/volume)Ordered By: Arik Boswell on 02-27-2025 Calcium [Mass/Vol] 8.4 mg/dL 7.6-11.0 [facility] Serum or plasma urea nitroge n measurement (mass/volume)Ordered By: Arik Boswell on 02-27-2025 Urea nitrogen [Mass/Vol] 11 mg/dL 4-19 [facility] Sodium levelOrdered By: Arik Boswell on 02-27-2025 Sodium [Moles/Vol] 129 mmol/L Low 133-145 [facility] Squamous epithelial cells de tection in urine sediment by light microscopyOrdered By: Arik Boswell on 02-27-2025 Epithelial cells.squamous LM Ql (Urine sed) 0-5 SEEN /hpf 0-5 [facility] Urine clarityOrdered By: Arik Boswell on 02-27-2025 Clarity (U) Clear Clear [facility] Urine color determinationOrd ered By: Arik Boswell on 02-27-2025 Color (U) Straw Yellow [facility] Urine glucose detectionOrder ed By: Arik Boswell on 02-27-2025 Glucose Ql (U) 1000 mg/dl High Normal [facility] Urine leukocyte esterase det ection by dipstickOrdered By: Arik Boswell on 02-27-2025 Leukocyte esterase Test strip Ql (U) Negative Negative [facility] Urine pHOrdered By: Arik maldonado on 02-27-2025 pH (U) 6.0 [pH] 5.0 - 8.0 [facility] Urine sediment bacteria coun t by microscopy (number/high power field)Ordered By: Arik Boswell on 02-27-2025 Bacteria LM.HPF (Urine sed) [#/Area] 0 /[HPF] None Seen [facility] Urine specific gravity measu rementOrdered By: Arik Boswell on 02-27-2025 Specific gravity (U) [Rel density] 1.010 1.002-1.03 0 [facility] Urine urobilinogen measureme ntOrdered By: Arik Boswell on 02-27-2025 Urobilinogen Ql (U) Normal mg/dl Normal [facility] White blood cell (WBC) count Ordered By: Arik Boswell on 02-27-2025 WBC (Bld) [#/Vol] 8.8 10*3/uL 4.4-11.0 [facility] White blood cell countOrdere d By: Arik Boswell on 02-27-2025 White blood cell count 0-5 SEEN /hpf 0-5 [facility] Basic Metabolic Profile (BMP )on 02-07-2025 BUN Normal 4-19 [facility] Comment on above: Result Comment: Canc elled via OM: Order cancelled - Patient discharged Performed By: #### L 100.0100, L300.8000, L501.9520, L505.5000, L500.2500 #### [facility] [address] [place], [address] BUN/CRE Normal 10-20 [facility] Comment on above: Result Comment: Canc elled via OM: Order cancelled - Patient discharged Performed By: #### L 100.0100, L300.8000, L501.9520, L505.5000, L500.2500 #### [facility] [address] [place], [address] Calcium Normal 7.6-11.0 [facility] Comment on above: Result Comment: Canc elled via OM: Order cancelled - Patient discharged Performed By: #### L 100.0100, L300.8000, L501.9520, L505.5000, L500.2500 #### [facility] [address] [place], [address] CL Normal 98-108 [facility] Comment on above: Result Comment: Canc elled via OM: Order cancelled - Patient discharged Performed By: #### L 100.0100, L300.8000, L501.9520, L505.5000, L500.2500 #### [facility] [address] [place], [address] CO2 Normal 21.0-32.0 [facility] Comment on above: Result Comment: Canc elled via OM: Order cancelled - Patient discharged Performed By: #### L 100.0100, L300.8000, L501.9520, L505.5000, L500.2500 #### [facility] [address] [place], [address] CREAT,SERUM Normal 0.70-1.20 [facility] Comment on above: Result Comment: Canc elled via OM: Order cancelled - Patient discharged Performed By: #### L 100.0100, L300.8000, L501.9520, L505.5000, L500.2500 #### [facility] [address] [place], [address] eGFR Normal >60 [facility] Comment on above: Result Comment: Canc elled via OM: Order cancelled - Patient discharged Performed By: #### L 100.0100, L300.8000, L501.9520, L505.5000, L500.2500 #### [facility] [address] [place], [address] GAP Normal 5-15 [facility] Comment on above: Result Comment: Canc elled via OM: Order cancelled - Patient discharged Performed By: #### L 100.0100, L300.8000, L501.9520, L505.5000, L500.2500 #### [facility] [address] [place], [address] GLU Normal 70-99 [facility] Comment on above: Result Comment: Canc elled via OM: Order cancelled - Patient discharged Performed By: #### L 100.0100, L300.8000, L501.9520, L505.5000, L500.2500 #### [facility] [address] [place], [address] Potassium Normal 3.3-5.1 [facility] Comment on above: Result Comment: Canc elled via OM: Order cancelled - Patient discharged Performed By: #### L 100.0100, L300.8000, L501.9520, L505.5000, L500.2500 #### [facility] [address] [place], [address] Basic Metabolic Profile (BMP) Normal 133-145 [facility] Comment on above: Result Comment: Canc elled via OM: Order cancelled - Patient discharged Performed By: #### L 100.0100, L300.8000, L501.9520, L505.5000, L500.2500 #### [facility] [address] [place], [address] Basic Metabolic Profile (BMP )on 02-06-2025 BUN Normal 4-19 [facility] Comment on above: Result Comment: Canc elled via OM: Order cancelled - Patient discharged Performed By: #### L 100.0100, L300.8000, L501.9520, L505.5000, L500.2500 #### [facility] [address] [place], [address] BUN/CRE Normal 10-20 [facility] Comment on above: Result Comment: Canc elled via OM: Order cancelled - Patient discharged Performed By: #### L 100.0100, L300.8000, L501.9520, L505.5000, L500.2500 #### [facility] [address] [place], [address] Calcium Normal 7.6-11.0 [facility] Comment on above: Result Comment: Canc elled via OM: Order cancelled - Patient discharged Performed By: #### L 100.0100, L300.8000, L501.9520, L505.5000, L500.2500 #### [facility] [address] [place], [address] CL Normal 98-108 [facility] Comment on above: Result Comment: Canc elled via OM: Order cancelled - Patient discharged Performed By: #### L 100.0100, L300.8000, L501.9520, L505.5000, L500.2500 #### [facility] [address] [place], [address] CO2 Normal 21.0-32.0 [facility] Comment on above: Result Comment: Canc elled via OM: Order cancelled - Patient discharged Performed By: #### L 100.0100, L300.8000, L501.9520, L505.5000, L500.2500 #### [facility] [address] [place], [address] CREAT,SERUM Normal 0.70-1.20 [facility] Comment on above: Result Comment: Canc elled via OM: Order cancelled - Patient discharged Performed By: #### L 100.0100, L300.8000, L501.9520, L505.5000, L500.2500 #### [facility] [address] [place], [address] eGFR Normal >60 [facility] Comment on above: Result Comment: Canc elled via OM: Order cancelled - Patient discharged Performed By: #### L 100.0100, L300.8000, L501.9520, L505.5000, L500.2500 #### [facility] [address] [place], [address] GAP Normal 5-15 [facility] Comment on above: Result Comment: Canc elled via OM: Order cancelled - Patient discharged Performed By: #### L 100.0100, L300.8000, L501.9520, L505.5000, L500.2500 #### [facility] [address] [place], [address] GLU Normal 70-99 [facility] Comment on above: Result Comment: Canc elled via OM: Order cancelled - Patient discharged Performed By: #### L 100.0100, L300.8000, L501.9520, L505.5000, L500.2500 #### [facility] [address] [place], [address] Potassium Normal 3.3-5.1 [facility] Comment on above: Result Comment: Canc elled via OM: Order cancelled - Patient discharged Performed By: #### L 100.0100, L300.8000, L501.9520, L505.5000, L500.2500 #### [facility] [address] [place], [address] Basic Metabolic Profile (BMP) Normal 133-145 [facility] Comment on above: Result Comment: Canc elled via OM: Order cancelled - Patient discharged Performed By: #### L 100.0100, L300.8000, L501.9520, L505.5000, L500.2500 #### [facility] [address] [place], [address] BUN Normal 4-19 [facility] Comment on above: Order Comment: Call MD with results STAT Result Comment: Canc elled via OM: MD Ordered Performed By: #### L 500.2500 ####[facility] [address] [place], [address] BUN/CRE Normal 10-20 [facility] Comment on above: Order Comment: Call MD with results STAT Result Comment: Canc elled via OM: MD Ordered Performed By: #### L 500.2500 ####[facility] [address] [place], [address] Calcium Normal 7.6-11.0 [facility] Comment on above: Order Comment: Call MD with results STAT Result Comment: Canc elled via OM: MD Ordered Performed By: #### L 500.2500 ####[facility] [address] [place], [address] CL Normal 98-108 [facility] Comment on above: Order Comment: Call MD with results STAT Result Comment: Canc elled via OM: MD Ordered Performed By: #### L 500.2500 ####[facility] [address] [place], [address] CO2 Normal 21.0-32.0 [facility] Comment on above: Order Comment: Call MD with results STAT Result Comment: Canc elled via OM: MD Ordered Performed By: #### L 500.2500 ####[facility] [address] [place], [address] CREAT,SERUM Normal 0.70-1.20 [facility] Comment on above: Order Comment: Call MD with results STAT Result Comment: Canc elled via OM: MD Ordered Performed By: #### L 500.2500 ####[facility] [address] [place], [address] eGFR Normal >60 [facility] Comment on above: Order Comment: Call MD with results STAT Result Comment: Canc elled via OM: MD Ordered Performed By: #### L 500.2500 ####[facility] [address] [place], [address] GAP Normal 5-15 [facility] Comment on above: Order Comment: Call MD with results STAT Result Comment: Canc elled via OM: MD Ordered Performed By: #### L 500.2500 ####[facility] [address] [place], [address] GLU Normal 70-99 [facility] Comment on above: Order Comment: Call MD with results STAT Result Comment: Canc elled via OM: MD Ordered Performed By: #### L 500.2500 ####[facility] [address] [place], [address] Potassium Normal 3.3-5.1 [facility] Comment on above: Order Comment: Call MD with results STAT Result Comment: Canc elled via OM: MD Ordered Performed By: #### L 500.2500 ####[facility] [address] [place], [address] Basic Metabolic Profile (BMP) Normal 133-145 [facility] Comment on above: Order Comment: Call MD with results STAT Result Comment: Canc elled via OM: MD Ordered Performed By: #### L 500.2500 ####[facility] [address] [place], [address] BUN Normal 4-19 [facility] Comment on above: Order Comment: Call MD with results STAT Result Comment: Canc elled via OM: MD Ordered Performed By: #### L 100.0100, L300.8000, L501.9520, L505.5000, L500.2500 #### [facility] [address] [place], [address] BUN/CRE Normal 10-20 [facility] Comment on above: Order Comment: Call MD with results STAT Result Comment: Canc elled via OM: MD Ordered Performed By: #### L 100.0100, L300.8000, L501.9520, L505.5000, L500.2500 #### [facility] [address] [place], [address] Calcium Normal 7.6-11.0 [facility] Comment on above: Order Comment: Call MD with results STAT Result Comment: Canc elled via OM: MD Ordered Performed By: #### L 100.0100, L300.8000, L501.9520, L505.5000, L500.2500 #### [facility] [address] [place], [address] CL Normal 98-108 [facility] Comment on above: Order Comment: Call MD with results STAT Result Comment: Canc elled via OM: MD Ordered Performed By: #### L 100.0100, L300.8000, L501.9520, L505.5000, L500.2500 #### [facility] [address] [place], [address] CO2 Normal 21.0-32.0 [facility] Comment on above: Order Comment: Call MD with results STAT Result Comment: Canc elled via OM: MD Ordered Performed By: #### L 100.0100, L300.8000, L501.9520, L505.5000, L500.2500 #### [facility] [address] [place], [address] CREAT,SERUM Normal 0.70-1.20 [facility] Comment on above: Order Comment: Call MD with results STAT Result Comment: Canc elled via OM: MD Ordered Performed By: #### L 100.0100, L300.8000, L501.9520, L505.5000, L500.2500 #### [facility] [address] [place], [address] eGFR Normal >60 [facility] Comment on above: Order Comment: Call MD with results STAT Result Comment: Canc elled via OM: MD Ordered Performed By: #### L 100.0100, L300.8000, L501.9520, L505.5000, L500.2500 #### [facility] [address] [place], [address] GAP Normal 5-15 [facility] Comment on above: Order Comment: Call MD with results STAT Result Comment: Canc elled via OM: MD Ordered Performed By: #### L 100.0100, L300.8000, L501.9520, L505.5000, L500.2500 #### [facility] [address] [place], [address] GLU Normal 70-99 [facility] Comment on above: Order Comment: Call MD with results STAT Result Comment: Canc elled via OM: MD Ordered Performed By: #### L 100.0100, L300.8000, L501.9520, L505.5000, L500.2500 #### [facility] [address] [place], [address] Potassium Normal 3.3-5.1 [facility] Comment on above: Order Comment: Call MD with results STAT Result Comment: Canc elled via OM: MD Ordered Performed By: #### L 100.0100, L300.8000, L501.9520, L505.5000, L500.2500 #### [facility] [address] [place], [address] Basic Metabolic Profile (BMP) Normal 133-145 [facility] Comment on above: Order Comment: Call MD with results STAT Result Comment: Canc elled via OM: MD Ordered Performed By: #### L 100.0100, L300.8000, L501.9520, L505.5000, L500.2500 #### [facility] [address] [place], [address] CBC W/Diff, Automatedon 07-0 Absolute Neut Normal 2.0-7.7 [facility] Comment on above: Result Comment: Canc elled via OM: Order cancelled - Patient discharged Performed By: #### L 100.0100, L300.8000, L501.9520, L505.5000, L500.2500 #### [facility] [address] [place], [address] HCT Normal 40-54 [facility] Comment on above: Result Comment: Canc elled via OM: Order cancelled - Patient discharged Performed By: #### L 100.0100, L300.8000, L501.9520, L505.5000, L500.2500 #### [facility] [address] [place], [address] HGB Normal 13.0-16.5 [facility] Comment on above: Result Comment: Canc elled via OM: Order cancelled - Patient discharged Performed By: #### L 100.0100, L300.8000, L501.9520, L505.5000, L500.2500 #### [facility] [address] [place], [address] MCH Normal 27.0-32.0 [facility] Comment on above: Result Comment: Canc elled via OM: Order cancelled - Patient discharged Performed By: #### L 100.0100, L300.8000, L501.9520, L505.5000, L500.2500 #### [facility] [address] [place], [address] MCHC Normal 32-36 [facility] Comment on above: Result Comment: Canc elled via OM: Order cancelled - Patient discharged Performed By: #### L 100.0100, L300.8000, L501.9520, L505.5000, L500.2500 #### [facility] [address] [place], [address] MCV Normal 80-94 [facility] Comment on above: Result Comment: Canc elled via OM: Order cancelled - Patient discharged Performed By: #### L 100.0100, L300.8000, L501.9520, L505.5000, L500.2500 #### [facility] [address] [place], [address] NEUT% Normal 47-70 [facility] Comment on above: Result Comment: Canc elled via OM: Order cancelled - Patient discharged Performed By: #### L 100.0100, L300.8000, L501.9520, L505.5000, L500.2500 #### [facility] [address] [facility] [address] PLT Normal 150-450 [facility] Comment on above: Result Comment: Canc elled via OM: Order cancelled - Patient discharged Performed By: #### L 100.0100, L300.8000, L501.9520, L505.5000, L500.2500 #### [facility] [address] [place] [id number] RBC Normal 4.6-6.2 [facility] Comment on above: Result Comment: Canc elled via OM: Order cancelled - Patient discharged Performed By: #### L 100.0100, L300.8000, L501.9520, L505.5000, L500.2500 #### [facility] [address] [place], [address] RDW CV Normal 11.6-14.6 [facility] Comment on above: Result Comment: Canc elled via OM: Order cancelled - Patient discharged Performed By: #### L 100.0100, L300.8000, L501.9520, L505.5000, L500.2500 #### [facility] [address] [facility] [address] RDW SD Normal 35.1-43.9 [facility] Comment on above: Result Comment: Canc elled via OM: Order cancelled - Patient discharged Performed By: #### L 100.0100, L300.8000, L501.9520, L505.5000, L500.2500 #### [facility] [address] [place], [address] WBC Normal 4.4-11.0 [facility] Comment on above: Result Comment: Canc elled via OM: Order cancelled - Patient discharged Performed By: #### L 100.0100, L300.8000, L501.9520, L505.5000, L500.2500 #### [facility] [address] [place], [address] 12 Lead EKGon 02-05-2025 12 Lead EKG [facility] [address] [place] [address] 12 Lead EKG 02/05/25 0238 MR#: [id number] Acct: [id number] Name: UNA COSBY Rep #: [id number] : 1995 29 From: Robbi Salazar MD [...] ECG Confirmed by ROBBI SALAZAR MD ([id number]), communications editor DOMINIC KEENE ([id number]) on 02/06/2025 6:37:13 AM Referred By: Confirmed By: ROBBI SALAZAR MD 02/06/25 0637 Date Robbi Salazar MD CC: Dr. Alo Zambrano MD; Dr. Babita Rivera DO; No Primary Care Physician Signed Normal [facility] Absolute lymphocyte countOrd ered By: Sarah White on 02-05-2025 Lymphocytes Auto (Unsp spec) [#/Vol] 4.47 10*3/uL 0.83-4.51 [facility] Absolute lymphocyte countOrd ered By: Remus Ungur on 02-05-2025 Lymphocytes Auto (Unsp spec) [#/Vol] 4.05 10*3/uL 0.83-4.51 [facility] Absolute neutrophil countOrd ered By: Sarah White on 02-05-2025 Neutrophils (Bld) [#/Vol] 6.8 10*3/uL 2.0-7.7 [facility] Absolute neutrophil countOrd ered By: Remus Ungur on 02-05-2025 Neutrophils (Bld) [#/Vol] 7.3 10*3/uL 2.0-7.7 [facility] Anion gap in Serum or Plasma Ordered By: Sarah White on 02-05-2025 Anion gap [Moles/Vol] 7 mmol/L 12-21 [facility] Anion gap in Serum or Plasma Ordered By: Remus Ungur on 02-05-2025 Anion gap [Moles/Vol] 23 mmol/L High 12-21 [facility] Automated lymphocyte count a s percentage of total leukocytesOrdered By: Sarah White on 02-05-2025 Lymphocytes/100 WBC Auto (Unsp spec) 34.1 % [facility] Automated lymphocyte count a s percentage of total leukocytesOrdered By: Remus Ungur on 02-05-2025 Lymphocytes/100 WBC Auto (Unsp spec) 31.1 % [facility] BUN/creatinine ratioOrdered By: Sarah White on 02-05-2025 Urea nitrogen/Creatinine [Mass ratio] 20.0 mg/mg 05-28 [facility] BUN/creatinine ratioOrdered By: Remus Ungur on 02-05-2025 Urea nitrogen/Creatinine [Mass ratio] 19.9 mg/mg 05-28 [facility] Basic Metabolic Profile (BMP )on 02-05-2025 BUN Normal 11-25 [facility] Comment on above: Order Comment: Call MD with results STAT Result Comment: Canc elled via OM: MD Ordered Performed By: #### L 500.2500 ####[facility] [address] [place], [address] BUN/CRE Normal 10-20 [facility] Comment on above: Order Comment: Call MD with results STAT Result Comment: Puneet elled via OM: MD Ordered Performed By: #### L 500.2500 ####[facility] [address] [place], [address] Calcium Normal 7.6-11.0 [facility] Comment on above: Order Comment: Call MD with results STAT Result Comment: Can elled via OM: MD Ordered Performed By: #### L 500.2500 ####[facility] [address] [place], [address] CL Normal 98-108 [facility] Comment on above: Order Comment: Call MD with results STAT Result Comment: Can elled via OM: MD Ordered Performed By: #### L 500.2500 ####[facility] [address] [place], [address] CO2 Normal 21.0-32.0 [facility] Comment on above: Order Comment: Call MD with results STAT Result Comment: Can elled via OM: MD Ordered Performed By: #### L 500.2500 ####[facility] [address] [place], [address] CREAT,SERUM Normal 0.70-1.20 [facility] Comment on above: Order Comment: Call MD with results STAT Result Comment: Candanielle elled via OM: MD Ordered Performed By: #### L 500.2500 ####[facility] [address] [place], [address] eGFR Normal >60 [facility] Comment on above: Order Comment: Call MD with results STAT Result Comment: Candanielle elled via OM: MD Ordered Performed By: #### L 500.2500 ####[facility] [address] [place], [address] GAP Normal 5-15 [facility] Comment on above: Order Comment: Call MD with results STAT Result Comment: Canc elled via OM: MD Ordered Performed By: #### L 500.2500 ####[facility] [address] [place], [address] GLU Normal 70-99 [facility] Comment on above: Order Comment: Call MD with results STAT Result Comment: Canc elled via OM: MD Ordered Performed By: #### L 500.2500 ####[facility] [address] [place], [address] Potassium Normal 3.3-5.1 [facility] Comment on above: Order Comment: Call MD with results STAT Result Comment: Canc elled via OM: MD Ordered Performed By: #### L 500.2500 ####[facility] [address] [place], [address] Basic Metabolic Profile (BMP) Normal 133-145 [facility] Comment on above: Order Comment: Call MD with results STAT Result Comment: Canc elled via OM: MD Ordered Performed By: #### L 500.2500 ####[facility] [address] [place], [address] BUN Normal 4-19 [facility] Comment on above: Order Comment: Call MD with results STAT Result Comment: Canc elled via OM: MD Ordered Performed By: #### L 500.2500 ####[facility] [address] [place], [address] BUN/CRE Normal 10-20 [facility] Comment on above: Order Comment: Call MD with results STAT Result Comment: Canc elled via OM: MD Ordered Performed By: #### L 500.2500 ####[facility] [address] [place], [address] Calcium Normal 7.6-11.0 [facility] Comment on above: Order Comment: Call MD with results STAT Result Comment: Canc elled via OM: MD Ordered Performed By: #### L 500.2500 ####[facility] [address] [place], [address] CL Normal 98-108 [facility] Comment on above: Order Comment: Call MD with results STAT Result Comment: Canc elled via OM: MD Ordered Performed By: #### L 500.2500 ####[facility] [address] [place], [address] CO2 Normal 21.0-32.0 [facility] Comment on above: Order Comment: Call MD with results STAT Result Comment: Canc elled via OM: MD Ordered Performed By: #### L 500.2500 ####[facility] [address] [place], [address] CREAT,SERUM Normal 0.70-1.20 [facility] Comment on above: Order Comment: Call MD with results STAT Result Comment: Canc elled via OM: MD Ordered Performed By: #### L 500.2500 ####[facility] [address] [place], [address] eGFR Normal >60 [facility] Comment on above: Order Comment: Call MD with results STAT Result Comment: Canc elled via OM: MD Ordered Performed By: #### L 500.2500 ####[facility] [address] [place], [address] GAP Normal 5-15 [facility] Comment on above: Order Comment: Call MD with results STAT Result Comment: Canc elled via OM: MD Ordered Performed By: #### L 500.2500 ####[facility] [address] [place], [address] GLU Normal 70-99 [facility] Comment on above: Order Comment: Call MD with results STAT Result Comment: Canc elled via OM: MD Ordered Performed By: #### L 500.2500 ####[facility] [address] [place], [address] Potassium Normal 3.3-5.1 [facility] Comment on above: Order Comment: Call MD with results STAT Result Comment: Puneet craft via OM: MD Ordered Performed By: #### L 500.2500 ####[facility] [address] [place], [address] Basic Metabolic Profile (BMP) Normal 133-145 [facility] Comment on above: Order Comment: Call MD with results STAT Result Comment: Puneet craft via OM: MD Ordered Performed By: #### L 500.2500 ####[facility] [address] [place], [address] BUN/CRE 20.0 RATIO Normal 10-20 [facility] Comment on above: Order Comment: Call MD with results STAT Performed By: #### L 100.0100, L300.8000, L501.9520, L505.5000, L500.2500 #### [facility] [address] [place], [address] Calcium [Mass/Vol] 7.7 mg/dL Normal 7.6-11.0 [facility] Comment on above: Order Comment: Call MD with results STAT Performed By: #### L 100.0100, L300.8000, L501.9520, L505.5000, L500.2500 #### [facility] [address] [place], [address] Chloride [Moles/Vol] 105 mmol/L Normal 98-108 [facility] Comment on above: Order Comment: Call MD with results STAT Performed By: #### L 100.0100, L300.8000, L501.9520, L505.5000, L500.2500 #### [facility] [address] [place], [address] CO2 [Moles/Vol] 26.0 mmol/L Normal 21.0-32.0 [facility] Comment on above: Order Comment: Call MD with results STAT Performed By: #### L 100.0100, L300.8000, L501.9520, L505.5000, L500.2500 #### [facility] [address] [place], [address] Creatinine [Mass/Vol] 0.51 mg/dL Low 0.70-1.20 [facility] Comment on above: Order Comment: Call MD with results STAT Performed By: #### L 100.0100, L300.8000, L501.9520, L505.5000, L500.2500 #### [facility] [address] [place], [address] ECRCL 188.95 ml/min Normal 50-250 [facility] Comment on above: Order Comment: Call MD with results STAT Performed By: #### L 100.0100, L300.8000, L501.9520, L505.5000, L500.2500 #### [facility] [address] [place], [address] GAP 7 Normal 5-15 [facility] Comment on above: Order Comment: Call MD with results STAT Performed By: #### L 100.0100, L300.8000, L501.9520, L505.5000, L500.2500 #### [facility] [address] [place], [address] GFR/1.73 sq M.predicted among non-blacks MDRD (S/P/Bld) [Vol rate/Area] 142 mL/min/{1.73_m2} Normal >60 [facility] Comment on above: Order Comment: Call MD with results STAT Result Comment: mL/m in/1.73m2 CKD-EPI Creatinine Equation (2020) Performed By: #### L 100.0100, L300.8000, L501.9520, L505.5000, L500.2500 #### [facility] [address] [place], [address] Glucose [Mass/Vol] 170 mg/dL High 70-99 [facility] Comment on above: Order Comment: Call MD with results STAT Performed By: #### L 100.0100, L300.8000, L501.9520, L505.5000, L500.2500 #### [facility] [address] [place], [address] Potassium [Moles/Vol] 3.4 mmol/L Normal 3.3-5.1 [facility] Comment on above: Order Comment: Call MD with results STAT Performed By: #### L 100.0100, L300.8000, L501.9520, L505.5000, L500.2500 #### [facility] [address] [place], [address] Sodium [Moles/Vol] 137 mmol/L Normal 133-145 [facility] Comment on above: Order Comment: Call MD with results STAT Performed By: #### L 100.0100, L300.8000, L501.9520, L505.5000, L500.2500 #### [facility] [address] [place], [address] Urea nitrogen [Mass/Vol] 10 mg/dL Normal 4-19 [facility] Comment on above: Order Comment: Call MD with results STAT Performed By: #### L 100.0100, L300.8000, L501.9520, L505.5000, L500.2500 #### [facility] [address] [place], [address] BUN/CRE 20.0 RATIO Normal 10-20 [facility] Comment on above: Order Comment: Call MD with results STAT Performed By: #### L 500.2500 ####[facility] [address] [place], [address] Calcium [Mass/Vol] 8.2 mg/dL Normal 7.6-11.0 [facility] Comment on above: Order Comment: Call MD with results STAT Performed By: #### L 500.2500 ####[facility] [address] [place], [address] Chloride [Moles/Vol] 106 mmol/L Normal 98-108 [facility] Comment on above: Order Comment: Call MD with results STAT Performed By: #### L 500.2500 ####[facility] [address] [place], [address] CO2 [Moles/Vol] 26.0 mmol/L Normal 21.0-32.0 [facility] Comment on above: Order Comment: Call MD with results STAT Performed By: #### L 500.2500 ####[facility] [address] [place], [address] Creatinine [Mass/Vol] 0.61 mg/dL Low 0.70-1.20 [facility] Comment on above: Order Comment: Call MD with results STAT Performed By: #### L 500.2500 ####[facility] [address] [place], [address] ECRCL 157.97 ml/min Normal 50-250 [facility] Comment on above: Order Comment: Call MD with results STAT Performed By: #### L 500.2500 ####[facility] [address] [place], [address] GAP 9 Normal 5-15 [facility] Comment on above: Order Comment: Call MD with results STAT Performed By: #### L 500.2500 ####[facility] [address] [place], [address] GFR/1.73 sq M.predicted among non-blacks MDRD (S/P/Bld) [Vol rate/Area] 135 mL/min/{1.73_m2} Normal >60 [facility] Comment on above: Order Comment: Call MD with results STAT Result Comment: mL/m in/1.73m2 CKD-EPI Creatinine Equation (2020) Performed By: #### L 500.2500 ####[facility] [address] [place], [address] Glucose [Mass/Vol] 155 mg/dL High 70-99 [facility] Comment on above: Order Comment: Call MD with results STAT Performed By: #### L 500.2500 ####[facility] [address] [place], [address] Potassium [Moles/Vol] 3.9 mmol/L Normal 3.3-5.1 [facility] Comment on above: Order Comment: Call MD with results STAT Performed By: #### L 500.2500 ####[facility] [address] [place], [address] Sodium [Moles/Vol] 141 mmol/L Normal 133-145 [facility] Comment on above: Order Comment: Call MD with results STAT Performed By: #### L 500.2500 ####[facility] [address] [place], [address] Urea nitrogen [Mass/Vol] 12 mg/dL Normal 4-19 [facility] Comment on above: Order Comment: Call MD with results STAT Performed By: #### L 500.2500 ####[facility] [address] [place], [address] BUN/CRE 23.2 RATIO High 10-20 [facility] Comment on above: Order Comment: Call MD with results STAT Performed By: #### L 100.0100, L300.8000, L501.9520, L505.5000, L500.2500 #### [facility] [address] [place], [address] Calcium [Mass/Vol] 8.0 mg/dL Normal 7.6-11.0 [facility] Comment on above: Order Comment: Call MD with results STAT Performed By: #### L 100.0100, L300.8000, L501.9520, L505.5000, L500.2500 #### [facility] [address] [place], [address] Chloride [Moles/Vol] 103 mmol/L Normal 98-108 [facility] Comment on above: Order Comment: Call MD with results STAT Performed By: #### L 100.0100, L300.8000, L501.9520, L505.5000, L500.2500 #### [facility] [address] [place], [address] CO2 [Moles/Vol] 22.9 mmol/L Normal 21.0-32.0 [facility] Comment on above: Order Comment: Call MD with results STAT Performed By: #### L 100.0100, L300.8000, L501.9520, L505.5000, L500.2500 #### [facility] [address] [place], [address] Creatinine [Mass/Vol] 0.61 mg/dL Low 0.70-1.20 [facility] Comment on above: Order Comment: Call MD with results STAT Performed By: #### L 100.0100, L300.8000, L501.9520, L505.5000, L500.2500 #### [facility] [address] [place], [address] ECRCL 157.97 ml/min Normal 50-250 [facility] Comment on above: Order Comment: Call MD with results STAT Performed By: #### L 100.0100, L300.8000, L501.9520, L505.5000, L500.2500 #### [facility] [address] [place], [address] GAP 12 Normal 5-15 [facility] Comment on above: Order Comment: Call MD with results STAT Performed By: #### L 100.0100, L300.8000, L501.9520, L505.5000, L500.2500 #### [facility] [address] [place], [address] GFR/1.73 sq M.predicted among non-blacks MDRD (S/P/Bld) [Vol rate/Area] 135 mL/min/{1.73_m2} Normal >60 [facility] Comment on above: Order Comment: Call MD with results STAT Result Comment: mL/m in/1.73m2 CKD-EPI Creatinine Equation (2020) Performed By: #### L 100.0100, L300.8000, L501.9520, L505.5000, L500.2500 #### [facility] [address] [place], [address] Glucose [Mass/Vol] 248 mg/dL High 70-99 [facility] Comment on above: Order Comment: Call MD with results STAT Performed By: #### L 100.0100, L300.8000, L501.9520, L505.5000, L500.2500 #### [facility] [address] [place], [address] Potassium [Moles/Vol] 3.7 mmol/L Normal 3.3-5.1 [facility] Comment on above: Order Comment: Call MD with results STAT Performed By: #### L 100.0100, L300.8000, L501.9520, L505.5000, L500.2500 #### [facility] [address] [place], [address] Sodium [Moles/Vol] 137 mmol/L Normal 133-145 [facility] Comment on above: Order Comment: Call MD with results STAT Performed By: #### L 100.0100, L300.8000, L501.9520, L505.5000, L500.2500 #### [facility] [address] [place], [address] Urea nitrogen [Mass/Vol] 14 mg/dL Normal 4-19 [facility] Comment on above: Order Comment: Call MD with results STAT Performed By: #### L 100.0100, L300.8000, L501.9520, L505.5000, L500.2500 #### [facility] [address] [place], [address] BUN/CRE 19.9 RATIO Normal 10-20 [facility] Comment on above: Performed By: #### L 100.0100, L300.8000, L501.9520, L505.5000, L500.2500 #### [facility] [address] [place], [address] Calcium [Mass/Vol] 10.0 mg/dL Normal 7.6-11.0 [facility] Comment on above: Performed By: #### L 100.0100, L300.8000, L501.9520, L505.5000, L500.2500 #### [facility] [address] [place], [address] Chloride [Moles/Vol] 86 mmol/L Low 98-108 [facility] Comment on above: Performed By: #### L 100.0100, L300.8000, L501.9520, L505.5000, L500.2500 #### [facility] [address] [place], [address] CO2 [Moles/Vol] 19.6 mmol/L Low 21.0-32.0 [facility] Comment on above: Performed By: #### L 100.0100, L300.8000, L501.9520, L505.5000, L500.2500 #### [facility] [address] [place], [address] Creatinine [Mass/Vol] 0.97 mg/dL Normal 0.70-1.20 [facility] Comment on above: Performed By: #### L 100.0100, L300.8000, L501.9520, L505.5000, L500.2500 #### [facility] [address] [place], [address] ECRCL 99.02 ml/min Normal 50-250 [facility] Comment on above: Performed By: #### L 100.0100, L300.8000, L501.9520, L505.5000, L500.2500 #### [facility] [address] [place], [address] GAP 23 High 5-15 [facility] Comment on above: Performed By: #### L 100.0100, L300.8000, L501.9520, L505.5000, L500.2500 #### [facility] [address] [place], [address] GFR/1.73 sq M.predicted among non-blacks MDRD (S/P/Bld) [Vol rate/Area] 110 mL/min/{1.73_m2} Normal >60 [facility] Comment on above: Result Comment: mL/m in/1.73m2 CKD-EPI Creatinine Equation (2020) Performed By: #### L 100.0100, L300.8000, L501.9520, L505.5000, L500.2500 #### [facility] [address] [place], [address] Glucose [Mass/Vol] 736 mg/dL Invalid Interpretation Code 70-99 [facility] Comment on above: Result Comment: Crit ical Result(s) Called at: 02/05/2025-03:34 by: Koko Oh to Casimiro Cast.??Results read back by same. Performed By: #### L 100.0100, L300.8000, L501.9520, L505.5000, L500.2500 #### [facility] [address] [place], [address] Potassium [Moles/Vol] 4.5 mmol/L Normal 3.3-5.1 [facility] Comment on above: Performed By: #### L 100.0100, L300.8000, L501.9520, L505.5000, L500.2500 #### [facility] [address] [place], [address] Sodium [Moles/Vol] 128 mmol/L Low 133-145 [facility] Comment on above: Performed By: #### L 100.0100, L300.8000, L501.9520, L505.5000, L500.2500 #### [facility] [address] [place], [address] Urea nitrogen [Mass/Vol] 19 mg/dL Normal 4-19 [facility] Comment on above: Performed By: #### L 100.0100, L300.8000, L501.9520, L505.5000, L500.2500 #### [facility] [address] [place], [address] Basophil percentageOrdered B y: Sarah White on 02-05-2025 Basophils/100 WBC (Bld) 0.6 % 0-1 [facility] Basophil percentageOrdered B y: Remus Ungur on 02-05-2025 Basophils/100 WBC (Bld) 0.7 % 0-1 [facility] Bedside Glucoseon 02-05-2025 [place] GLU 138 mg/dL High 74-106 [facility] Comment on above: Result Comment: TEJAL GEMENT OF PATIENT CARE PER NURSING PROTOCOL Performed By: #### L 100.0100, L300.8000, L501.9520, L505.5000, L500.2500 #### [facility] [address] [place], [address] FING[place]ICK GLU 149 mg/dL High 74-106 [facility] Comment on above: Result Comment: TEJAL GEMENT OF PATIENT CARE PER NURSING PROTOCOL Performed By: #### L 501.080 ####[facility] [address] [place], [address] FINGERSTICK GLU 169 mg/dL High 74-106 [facility] Comment on above: Result Comment: TEJAL GEMENT OF PATIENT CARE PER NURSING PROTOCOL Performed By: #### L 100.0100, L300.8000, L501.9520, L505.5000, L500.2500 #### [facility] [address] [place], [address] FINGER[place]ICK GLU 158 mg/dL High 74-106 [facility] Comment on above: Result Comment: TEJAL GEMENT OF PATIENT CARE PER NURSING PROTOCOL Performed By: #### L 100.0100, L300.8000, L501.9520, L505.5000, L500.2500 #### [facility] [address] [place], [address] FINGERSTICK GLU 139 mg/dL High [address] [place] [address] Comment on above: Result Comment: TEJAL GEMENT OF PATIENT CARE PER NURSING PROTOCOL Performed By: #### L 100.0100, L300.8000, L501.9520, L505.5000, L500.2500 #### [facility] [address] [place], [address] FINGERSTICK GLU 159 mg/dL High [address] [place] [address] Comment on above: Result Comment: TEJAL GEMENT OF PATIENT CARE PER NURSING PROTOCOL Performed By: #### L 100.0100, L300.8000, L501.9520, L505.5000, L500.2500 #### [facility] [address] [place], [address] FINGERSTICK GLU 181 mg/dL High [address] [place] [address] Comment on above: Result Comment: TEJAL GEMENT OF PATIENT CARE PER NURSING PROTOCOL Performed By: #### L 501.080 ####[facility] [address] [place], [address] FINGERSTICK GLU 308 mg/dL High [address] [place] [address] Comment on above: Result Comment: TEJAL GEMENT OF PATIENT CARE PER NURSING PROTOCOL Performed By: #### L 100.0100, L300.8000, L501.9520, L505.5000, L500.2500 #### [facility] [address] [place], [address] FINGERSTICK GLU 269 mg/dL High [address] [place] [address] Comment on above: Result Comment: TEJAL GEMENT OF PATIENT CARE PER NURSING PROTOCOL Performed By: #### L 100.0100, L300.8000, L501.9520, L505.5000, L500.2500 #### [facility] [address] [place], [address] FINGERSTICK GLU 430 mg/dL High 74-106 [facility] Comment on above: Result Comment: TEJAL STAHLENT OF PATIENT CARE PER NURSING PROTOCOL Performed By: #### L 100.0100, L300.8000, L501.9520, L505.5000, L500.2500 #### [facility] [address] [place], [address] FINGERSTICK GLU > 500 Invalid Interpretation Code 74-106 [facility] Comment on above: Result Comment: Dr Erica egan Followed MANAGEMENT OF PATIENT CARE PER NURSING PROTOCOL Performed By: #### L 100.0100, L300.8000, L501.9520, L505.5000, L500.2500 #### [facility] [address] [place], [address] Beta-Hydroxbytyrateon 2024 BETA-HYDROXYBUT 5.5 mmol/L High 0.0-0.3 [facility] Comment on above: Performed By: #### L 100.0100, L300.8000, L501.9520, L505.5000, L500.2500 #### [facility] [address] [place], [address] Beta-hydroxybutyrateOrdered By: Babita Rivera on 02-05-2025 Beta hydroxybutyrate [Mass/Vol] 5.5 mmol/L High 0.0-0.3 [facility] Bilirubin Test strip Ql (U)O rdered By: Remus Rivera on 02-05-2025 Bilirubin Ql (U) Negative Negative [facility] Blood manual differential co mment interpretation (narrative result)Ordered By: Remus Rivera on 02-05-2025 Manual differential comment Gigi (Bld) [Interp] SCANNED [facility] CBC W/Diff, Automatedon 01-09 ATYPICAL LYMPH 1+ Normal [facility] Comment on above: Performed By: #### L 100.0100, L300.8000, L501.9520, L505.5000, L500.2500 #### [facility] [address] [place], [address] SMEAR COMMENT SCANNED Normal [facility] Comment on above: Performed By: #### L 100.0100, L300.8000, L501.9520, L505.5000, L500.2500 #### [facility] [address] [place], [address] Carbon dioxide, total [Moles /volume] in Central venous bloodOrdered By: Sarah Oh on 02-05-2025 CO2 [Moles/Vol] 26.0 mmol/L 21.0-32.0 [facility] Carbon dioxide, total [Moles /volume] in Central venous bloodOrdered By: Babita Rivera on 02-05-2025 CO2 [Moles/Vol] 19.6 mmol/L Low 21.0-32.0 [facility] Chloride assayOrdered By: Jaimie Oh on 02-05-2025 Chloride [Moles/Vol] 105 mmol/L 98-108 [facility] Chloride assayOrdered By: Cata Rivera on 02-05-2025 Chloride [Moles/Vol] 86 mmol/L Low 98-108 [facility] Emergency Department Summary on 02-05-2025 Emergency Department Summary [facility] Medical Records Department [address] [place] [address] Emergency Department Summary 02/05/25 MR#: [id number] Acct: [id number] Name: UNA COSBY Rep #: [id number] : 1995 29 From: Babita Rivera DO PCP: Care Physician,No Primary Status:ADM IN Location: ICU [id number] HPI History of Present Illness Chief Complaint: [...] He denies fevers or chills or sweats. [facility] Medical History (Updated 02/05/25 @ 03:43 [...] sounds Ca (more content not included)... Normal [facility] Eosinophil percentageOrdered By: White on 02-05-2025 Eosinophils/100 WBC (Bld) 4.2 % 0-5 [facility] Eosinophil percentageOrdered By: Remus Ungur on 02-05-2025 Eosinophils/100 WBC (Bld) 3.4 % 0-5 [facility] Erythrocyte distribution wid th ratioOrdered By: White on 02-05-2025 Erythrocyte distribution width (RBC) [Ratio] 16.2 % High 11.6-14.6 [facility] Erythrocyte distribution wid th ratioOrdered By: Babita Rivera on 02-05-2025 Erythrocyte distribution width (RBC) [Ratio] 16.2 % High 11.6-14.6 [facility] Erythrocyte distribution wid th standard deviationOrdered By: Sarah Oh on 02-05-2025 Erythrocyte distribution width (RBC) [Ratio] 44.2 fl High 35.1-43.9 [facility] Erythrocyte distribution wid th standard deviationOrdered By: Babita Rivera on 02-05-2025 Erythrocyte distribution width (RBC) [Ratio] 45.2 fl High 35.1-43.9 [facility] Glomerular filtration rate ( GFR) estimation/1.73 sq m using serum, plasma, or whole bOrdered By: Sarah Oh on 02-05-2025 GFR/1.73 sq M.predicted among non-blacks MDRD (S/P/Bld) [Vol rate/Area] 142 mL/min/{1.73_m2} >60 [facility] Comment on above: mL/min/1.73m2 CKD-EP I Creatinine Equation (2020) Glomerular filtration rate ( GFR) estimation/1.73 sq m using serum, plasma, or whole bOrdered By: Babita Rivera on 02-05-2025 GFR/1.73 sq M.predicted among non-blacks MDRD (S/P/Bld) [Vol rate/Area] 110 mL/min/{1.73_m2} >60 [facility] Comment on above: mL/min/1.73m2 CKD-EP I Creatinine Equation (2020) [facility] at [facility] deOrdered By: Alo Zambrano on 02-05-2025 Glucose [Mass/Vol] 138 mg/dL High 74-106 [facility] Comment on above: MANAGEMENT OF PATIEN T CARE PER NURSING PROTOCOL Glucose measurement at [facility] deOrdered By: Sarah Oh on 02-05-2025 Glucose [Mass/Vol] 430 mg/dL High 74-106 [facility] Comment on above: MANAGEMENT OF PATIEN T CARE PER NURSING PROTOCOL [facility]P Ex[facility] - Hospitalist [facility] Medical Records Department [address] [place] [address] H P Exam - Hospitalist 02/05/25 0343 MR#: [id number] Acct: [id number] Name: UNA COSBY Rep #: [id number] : 1995 29 From: Saarh Oh MD PCP: Care Physician,No Primary Status:ADM IN Location: ICU [id number] HPI - General General Date of Admission: 02/05/25 Date of Service: 02/05/25 Chief Complaint: N/V, elevated BS. HPI Narrative The patient is a 29 y/o M w/ PMHx: Chronic microcytic anemia, IDDM, Anxiety and Depression, Chronic cognitive impairment with learning debilities chart reported, Tobacco use who presents to the [facility] ED on 02/05/2025 with history of [...] 1 and initiated on an insulin drip. [facility] Medical History Noncompliance with medication regimen [...] Examination: Gene (more content not included)... Normal [facility] Hematocrit Auto (Bld) [Volum e fraction]Ordered By: Sarah Oh on 02-05-2025 Hematocrit (Bld) [Volume fraction] 32.5 % Low 40-54 [facility] Hematocrit Auto (Bld) [Volum e fraction]Ordered By: Babita Rivera on 02-05-2025 Hematocrit (Bld) [Volume fraction] 39.3 % Low 40-54 [facility] Hemoglobin A1con 02-05-2025 HbA1c (Bld) [Mass fraction] 15.5 % High <=5.6 [facility] Comment on above: Result Comment: Norm al < 5.7 % Prediabetic 5.7 - 6.4 % Diabetic >or= 6.5 % Please note range changes. Performed By: #### L 100.0100, L300.8000, L501.9520, L505.5000, L500.2500 #### [facility] [address] [place] [address]. [place], [place], [id number] Hemoglobin A1c percentageOrd ered By: Sarah Oh on 02-05-2025 HbA1c (Bld) [Mass fraction] 15.5 % High <5.7 [facility] Comment on above: Normal < 5.7 % Predi abetic 5.7 - 6.4 % Diabetic >or= 6.5 % Please note range changes. Hemoglobin measurementOrdere d By: Sarah Oh on 02-05-2025 Hemoglobin (Bld) [Mass/Vol] 10.4 g/dL Low 13.0-16.5 [facility] Hemoglobin measurementOrdere d By: Babita Rivera on 02-05-2025 Hemoglobin (Bld) [Mass/Vol] 12.3 g/dL Low 13.0-16.5 [facility] Immature granulocytes/100 WB C Auto (Bld)Ordered By: Sarah Oh on 02-05-2025 Immature granulocytes/100 WBC (Bld) 0.300 % 0.0-0.9 [facility] Comment on above: IG% - Immature Granu locytes (promyelocytes, myelocytes and metamyelocytes) > 1% indicates that a LEFT SHIFT is Present. Immature granulocytes/100 WB C Auto (Bld)Ordered By: Babita Rivera on 02-05-2025 Immature granulocytes/100 WBC (Bld) 0.200 % 0.0-0.9 [facility] Comment on above: IG% - Immature Granu locytes (promyelocytes, myelocytes and metamyelocytes) > 1% indicates that a LEFT SHIFT is Present. Ketones Test strip Ql (U)Ord ered By: Babita Rivera on 02-05-2025 Ketones Ql (U) 150 mg/dl Abnormal Negative [facility] Comment on above: CRITICAL VALUE *HCRI TICAL VALUE CALLED TO KIRYKUH74/30/25 0443 Serafin Bell.RESULTS READ BACK BY SAME. M8200.1000on 02-05-2025 M8200.1000 Normal Reference Ran ge = Negative MRSA DNA Nose Ql LM+probe GeneXpert Instrument, PCR method MRSA PCR MRSA NEGATIVE Normal [facility] Comment on above: Performed By: #### L 100.0100, L300.8000, L501.9520, L505.5000, L500.2500 #### [facility] [address] [place] [address], [id number] MCV (mean corpuscular volume ) determinationOrdered By: Sarah Oh on 02-05-2025 MCV (RBC) [Entitic vol] 75.8 fL Low 80-94 [facility] MCV (mean corpuscular volume ) determinationOrdered By: Babita Rivera on 02-05-2025 MCV (RBC) [Entitic vol] 76.6 fL Low 80-94 [facility] Magnesiumon 02-05-2025 Magnesium [Mass/Vol] 1.9 mg/dL Normal 1.5-2.2 [facility] Comment on above: Order Comment: Comme nts: may add to ED labs Performed By: #### L 100.0100, L300.8000, L501.9520, L505.5000, L500.2500 #### [facility] [address] [place], [address] Magnesium measurement (mass/ volume)Ordered By: Sarah Oh on 02-05-2025 Magnesium (Unsp spec) [Mass/Vol] 1.9 mg/dL 1.5-2.2 [facility] Mean corpuscular hemoglobin (MCH) determinationOrdered By: Sarah Oh on 02-05-2025 MCH (RBC) [Entitic mass] 24.2 pg Low 27.0-32.0 [facility] Mean corpuscular hemoglobin (MCH) determinationOrdered By: Babita Rivera on 02-05-2025 MCH (RBC) [Entitic mass] 24.0 pg Low 27.0-32.0 [facility] Mean corpuscular hemoglobin concentration (MCHC) determinationOrdered By: Sarah Oh on 02-05-2025 MCHC (RBC) [Mass/Vol] 32.0 g/dL 32-36 [facility] Mean corpuscular hemoglobin concentration (MCHC) determinationOrdered By: Babita Rivera on 02-05-2025 MCHC (RBC) [Mass/Vol] 31.3 g/dL Low 32-36 [facility] Mean platelet volume determi nationOrdered By: Sarah Oh on 02-05-2025 Platelet mean volume (Bld) [Entitic vol] 10.8 fL 6.2-12.0 [facility] Mean platelet volume determi nationOrdered By: Babita Rivera on 02-05-2025 Platelet mean volume (Bld) [Entitic vol] 11.4 fL 6.2-12.0 [facility] Microscopic analysis of urin e for red blood cells (RBC)Ordered By: aBbita Rivera on 02-05-2025 Microscopic analysis of urine for red blood cells (RBC) 0-5 SEEN /hpf 0-5 [facility] Monocyte percentageOrdered B y: Sarah Oh on 02-05-2025 Monocytes/100 WBC (Bld) 8.5 % 0-10 [facility] Monocyte percentageOrdered B y: Babita Rivera on 02-05-2025 Monocytes/100 WBC (Bld) 9.0 % 0-10 [facility] Mucus LM Ql (Urine sed)Order ed By: Babita Rivera on 02-05-2025 Mucus Ql (Urine sed) 0 SEEN /hpf [facility] Nasal methicillin resistant Staphylococcus aureus (MRSA) DNA detection by PCROrdered By: Sarah Oh on 02-05-2025 MRSA DNA LM+probe Ql (Nose) [facility] Neutrophil percentageOrdered By: Sarah White on 02-05-2025 Neutrophils/100 WBC (Bld) 52.3 % [facility] Neutrophil percentageOrdered By: Babita Ungrowan on 02-05-2025 Neutrophils/100 WBC (Bld) 55.6 % [facility] Nucleated red blood cell per centageOrdered By: Sarah Oh on 02-05-2025 Nucleated RBC/100 WBC (Bld) [Ratio] 0 % 0-5 [facility] Nucleated red blood cell per centageOrdered By: Babita Rivera on 02-05-2025 Nucleated RBC/100 WBC (Bld) [Ratio] 0 % 0-5 [facility] Phosphoruson 02-05-2025 Phosphate [Mass/Vol] 4.6 mg/dL High 2.7-4.5 [facility] Comment on above: Order Comment: Comme nts: May add to ED labs Performed By: #### L 100.0100, L300.8000, L501.9520, L505.5000, L500.2500 #### [facility] [address] [place], [place], [id number] Platelet countOrdered By: Jaimie Oh on 02-05-2025 Platelets (Bld) [#/Vol] 297 10*3/uL 150-450 [facility] Platelet countOrdered By: Cata Rivera on 02-05-2025 Platelets (Bld) [#/Vol] 344 10*3/uL 150-450 [facility] Potassium measurement (mass/ volume)Ordered By: Sarah Oh on 02-05-2025 Potassium (Unsp spec) [Mass/Vol] 3.4 mmol/L 3.3-5.1 [facility] Potassium measurement (mass/ volume)Ordered By: Babita Rivera on 02-05-2025 Potassium (Unsp spec) [Mass/Vol] 4.5 mmol/L 3.3-5.1 [facility] Protein Test strip Ql (U)Ord ered By: Babita Rivera on 02-05-2025 Protein Ql (U) 30 mg/dl High Negative [facility] RBC Auto (Bld) [#/Vol]Ordere d By: Sarah Oh on 02-05-2025 RBC (Bld) [#/Vol] 4.29 10*6/uL Low 4.6-6.2 [facility] RBC Auto (Bld) [#/Vol]Ordere d By: Babita Rivera on 02-05-2025 RBC (Bld) [#/Vol] 5.13 10*6/uL 4.6-6.2 [facility] Serum creatinine measurement (mass/volume)Ordered By: Sarah Oh on 02-05-2025 Creatinine [Mass/Vol] 0.51 mg/dL Low 0.70-1.20 [facility] Serum creatinine measurement (mass/volume)Ordered By: Babita Rivera on 02-05-2025 Creatinine [Mass/Vol] 0.97 mg/dL 0.70-1.20 [facility] Serum glucose measurement (m ass/volume)Ordered By: Sarah Oh on 02-05-2025 Glucose [Mass/Vol] 170 mg/dL High 70-99 [facility] Serum glucose measurement (m ass/volume)Ordered By: Babita Rivera on 02-05-2025 Glucose [Mass/Vol] 736 mg/dL High 70-99 [facility] Comment on above: Critical Result(s) C alled at: 02/05/2025-03:34 by: Koko Oh to Casimiro Cast. Results read back by same. Serum or plasma calcium koby urement (mass/volume)Ordered By: Sarah Oh on 02-05-2025 Calcium [Mass/Vol] 7.7 mg/dL 7.6-11.0 [facility] Serum or plasma calcium koby urement (mass/volume)Ordered By: Babita Rivera on 02-05-2025 Calcium [Mass/Vol] 10.0 mg/dL 7.6-11.0 [facility] Serum or plasma urea nitroge n measurement (mass/volume)Ordered By: Sarah Oh on 02-05-2025 Urea nitrogen [Mass/Vol] 10 mg/dL 11-25 [facility] Serum or plasma urea nitroge n measurement (mass/volume)Ordered By: Remus Ungrowan on 02-05-2025 Urea nitrogen [Mass/Vol] 19 mg/dL 11-25 [facility] Sodium levelOrdered By: Edwin Oh on 02-05-2025 Sodium [Moles/Vol] 137 mmol/L 133-145 [facility] Sodium levelOrdered By: Lupeu s Miguel on 02-05-2025 Sodium [Moles/Vol] 128 mmol/L Low 133-145 [facility] Squamous epithelial cells de tection in urine sediment by light microscopyOrdered By: Remus Miguel on 02-05-2025 Epithelial cells.squamous LM Ql (Urine sed) 0 SEEN /hpf 0-5 [facility] Urinalysis, Completeon 02-05 KETONE UR 150 mg/dl Abnormal Negative [facility] Comment on above: Order Comment: CLEAN CATCH Result Comment: CRIT ICAL VALUE *H CRITICAL VALUE CALLED TO SOLITARIO 02/05/25 0443 Serafin Bell. RESULTS READ BACK BY SAME. Performed By: #### L 100.0100, L300.8000, L501.9520, L505.5000, L500.2500 #### [facility] [address] [place], [place], [id number] RBC 0-5 SEEN Normal 0-5 [facility] Comment on above: Order Comment: CLEAN CATCH Performed By: #### L 100.0100, L300.8000, L501.9520, L505.5000, L500.2500 #### [facility] [address] [place], [place], [id number] BILIRUBIN URINE Negative Normal Negative [facility] Comment on above: Order Comment: CLEAN CATCH Performed By: #### L 100.0100, L300.8000, L501.9520, L505.5000, L500.2500 #### [facility] [address] [place], [address] GLUCOSE, UR 1000 mg/dl Abnormal Normal [facility] Comment on above: Order Comment: CLEAN CATCH Performed By: #### L 100.0100, L300.8000, L501.9520, L505.5000, L500.2500 #### [facility] [address] [place], [address] LEUK ESTERASE Negative Normal Negative [facility] Comment on above: Order Comment: CLEAN CATCH Performed By: #### L 100.0100, L300.8000, L501.9520, L505.5000, L500.2500 #### [facility] [address] [place], [address] OCCULT BLOOD-UR 25 /ul Abnormal Negative [facility] Comment on above: Order Comment: CLEAN CATCH Performed By: #### L 100.0100, L300.8000, L501.9520, L505.5000, L500.2500 #### [facility] [address] [place], [address] pH UR 6.0 Normal 5.0 - 8.0 [facility] Comment on above: Order Comment: CLEAN CATCH Performed By: #### L 100.0100, L300.8000, L501.9520, L505.5000, L500.2500 #### [facility] [address] [place], [address] PROT DIPSTX 30 mg/dl Abnormal Negative [facility] Comment on above: Order Comment: CLEAN CATCH Performed By: #### L 100.0100, L300.8000, L501.9520, L505.5000, L500.2500 #### [facility] [address] [place], [address] SP.GR. DIPSTX 1.010 Normal 1.002-1.03 0 [facility] Comment on above: Order Comment: CLEAN CATCH Performed By: #### L 100.0100, L300.8000, L501.9520, L505.5000, L500.2500 #### [facility] [address] [place], [address] UROBILI Normal Normal Normal [facility] Comment on above: Order Comment: CLEAN CATCH Performed By: #### L 100.0100, L300.8000, L501.9520, L505.5000, L500.2500 #### [facility] [address] [place], [address] BACTERIA 0 SEEN Normal None Seen [facility] Comment on above: Order Comment: CLEAN CATCH Performed By: #### L 100.0100, L300.8000, L501.9520, L505.5000, L500.2500 #### [facility] [address] [place], [address] EPI,SQUAMOUS 0 SEEN Normal 0-5 [facility] Comment on above: Order Comment: CLEAN CATCH Performed By: #### L 100.0100, L300.8000, L501.9520, L505.5000, L500.2500 #### [facility] [address] [place], [address] Mucus Ql (Urine sed) 0 SEEN Normal [facility] Comment on above: Order Comment: CLEAN CATCH Performed By: #### L 100.0100, L300.8000, L501.9520, L505.5000, L500.2500 #### [facility] [address] [place], [address] WBC 0 SEEN Normal 0-5 [facility] Comment on above: Order Comment: CLEAN CATCH Performed By: #### L 100.0100, L300.8000, L501.9520, L505.5000, L500.2500 #### [facility] [address] [place], [address] Urine clarityOrdered By: Lupe Rivera on 02-05-2025 Clarity (U) Clear Clear [facility] Comment on above: Order Comment: CLEAN CATCH Performed By: #### L 100.0100, L300.8000, L501.9520, L505.5000, L500.2500 #### [facility] [address] [place], [place], [id number] Urine color determinationOrd ered By: Babita Rivera on 02-05-2025 Color (U) Straw Yellow [facility] Comment on above: Order Comment: CLEAN CATCH Performed By: #### L 100.0100, L300.8000, L501.9520, L505.5000, L500.2500 #### [facility] [address] [facility] [place], [address] Urine glucose detectionOrder ed By: Babita Rivera on 02-05-2025 Glucose Ql (U) 1000 mg/dl High Normal [facility] Urine leukocyte esterase det ection by dipstickOrdered By: Babita Rivera on 02-05-2025 Leukocyte esterase Test strip Ql (U) Negative Negative [facility] Urine nitrite test by dipsti ckOrdered By: Babita Rivera on 02-05-2025 Nitrite Ql (U) Negative Negative [facility] Comment on above: Order Comment: CLEAN CATCH Performed By: #### L 100.0100, L300.8000, L501.9520, L505.5000, L500.2500 #### [facility] [address] [place], [place], [id number] Urine pHOrdered By: Babita crews on 02-05-2025 pH (U) 6.0 [pH] 5.0 - 8.0 [facility] Urine sediment bacteria coun t by microscopy (number/high power field)Ordered By: Babita Rivera on 02-05-2025 Bacteria LM.HPF (Urine sed) [#/Area] 0 /[HPF] None Seen [facility] Urine specific gravity measu rementOrdered By: Babita Rivera on 02-05-2025 Specific gravity (U) [Rel density] 1.010 1.002-1.03 0 [facility] Urine urobilinogen measureme ntOrdered By: Babita Rivera on 02-05-2025 Urobilinogen Ql (U) Normal mg/dl Normal [facility] White blood cell (WBC) count Ordered By: Sarah Oh on 02-05-2025 WBC (Bld) [#/Vol] 13.1 10*3/uL High 4.4-11.0 [facility] White blood cell (WBC) count Ordered By: Babita Rivera on 02-05-2025 WBC (Bld) [#/Vol] 13.0 10*3/uL High 4.4-11.0 [facility] White blood cell countOrdere d By: Babita Rivera on 02-05-2025 White blood cell count 0 SEEN /hpf 0-5 [facility] 12 Lead EKGon 01-26-2025 12 Lead EKG [facility] [address] [place] [address] 12 Lead EKG 01/26/25 1141 MR#: [id number] Acct: [id number] Name: UNA COSBY Rep #: [id number] : 1995 29 From: Doyle Morales MD [...] enlargement Borderline ECG Confirmed by Doyle Morales ([id number]), communications editor COREY MICHAEL ([id number]) on 01/30/2025 12:47:37 PM Referred By: Confirmed By: Doyle Morales 01/30/25 1247 Date Doyle Morales MD CC: Dr. Keisha Handy DO; No Primary Care Physician Signed Normal [facility] Absolute lymphocyte countOrd ered By: Beverly Ca on 01-26-2025 Lymphocytes Auto (Unsp spec) [#/Vol] 3.02 10*3/uL 0.83-4.51 [facility] Absolute neutrophil countOrd ered By: Beverly Lanny on 01-26-2025 Neutrophils (Bld) [#/Vol] 6.1 10*3/uL 2.0-7.7 [facility] Amphetamine detection with 1 000 ng/mL as cutoffOrdered By: Beverly Ca on 01-26-2025 Amphetamines Screen method >1000 ng/mL Ql (U) Negative < 200 ng/mL [facility] Anion gap in Serum or Plasma Ordered By: Beverly Ca on 01-26-2025 Anion gap [Moles/Vol] 13 mmol/L 5-15 [facility] Automated lymphocyte count a s percentage of total leukocytesOrdered By: Beverly Ca on 01-26-2025 Lymphocytes/100 WBC Auto (Unsp spec) 28.9 % - [facility] BUN/creatinine ratioOrdered By: Beverly Ca on 01-26-2025 Urea nitrogen/Creatinine [Mass ratio] 28.2 mg/mg High 10- [facility] Basic Metabolic Profile (BMP )on 01-26-2025 BUN/CRE 28.2 RATIO High [facility] Comment on above: Performed By: #### L 100.0100, L300.8000, L501.9520, L505.5000, L500.2500 #### [facility] [address] [place], [address] Calcium [Mass/Vol] 8.7 mg/dL Normal 7.6-11.0 [facility] Comment on above: Performed By: #### L 100.0100, L300.8000, L501.9520, L505.5000, L500.2500 #### [facility] [address] [place], [address] Chloride [Moles/Vol] 98 mmol/L Normal 98-108 [facility] Comment on above: Performed By: #### L 100.0100, L300.8000, L501.9520, L505.5000, L500.2500 #### [facility] [address] [place], [address] CO2 [Moles/Vol] 22.8 mmol/L Normal 21.0-32.0 [facility] Comment on above: Performed By: #### L 100.0100, L300.8000, L501.9520, L505.5000, L500.2500 #### [facility] [address] [place], [address] Creatinine [Mass/Vol] 0.65 mg/dL Low 0.70-1.20 [facility] Comment on above: Performed By: #### L 100.0100, L300.8000, L501.9520, L505.5000, L500.2500 #### [facility] [address] [place], [address] ECRCL 150.26 ml/min Normal 50-250 [facility] Comment on above: Performed By: #### L 100.0100, L300.8000, L501.9520, L505.5000, L500.2500 #### [facility] [address] [place], [address] GAP 13 Normal 5-15 [facility] Comment on above: Performed By: #### L 100.0100, L300.8000, L501.9520, L505.5000, L500.2500 #### [facility] [address] [place], [address] GFR/1.73 sq M.predicted among non-blacks MDRD (S/P/Bld) [Vol rate/Area] 132 mL/min/{1.73_m2} Normal >60 [facility] Comment on above: Result Comment: mL/m in/1.73m2 CKD-EPI Creatinine Equation (2020) Performed By: #### L 100.0100, L300.8000, L501.9520, L505.5000, L500.2500 #### [facility] [address] [place], [address] Glucose [Mass/Vol] 484 mg/dL Invalid Interpretation Code 70-99 [facility] Comment on above: Result Comment: Kang ical Result(s) Called at: 01/26/2025-12:56 by: Koko Oh to Generi Long.??Results read back by same. Performed By: #### L 100.0100, L300.8000, L501.9520, L505.5000, L500.2500 #### [facility] [address] [place], [address] Potassium [Moles/Vol] 4.3 mmol/L Normal 3.3-5.1 [facility] Comment on above: Performed By: #### L 100.0100, L300.8000, L501.9520, L505.5000, L500.2500 #### [facility] [address] [place], [address] Sodium [Moles/Vol] 133 mmol/L Normal 133-145 [facility] Comment on above: Performed By: #### L 100.0100, L300.8000, L501.9520, L505.5000, L500.2500 #### [facility] [address] [place], [address] Urea nitrogen [Mass/Vol] 18 mg/dL Normal 4-19 [facility] Comment on above: Performed By: #### L 100.0100, L300.8000, L501.9520, L505.5000, L500.2500 #### [facility] [address] [place], [address] Basophil percentageOrdered B y: Beverly Ca on 01-26-2025 Basophils/100 WBC (Bld) 0.6 % 0-1 [facility] Glucoseon 01-26-2025 FINGERSTICK GLU 189 mg/dL High 74-106 [facility] Comment on above: Result Comment: TEJAL GEMENT OF PATIENT CARE PER NURSING PROTOCOL Performed By: #### L 501.080 #### [facility] [address] [place], [address] FINGERSTICK GLU 290 mg/dL High 74-106 [facility] Comment on above: Result Comment: TEJAL GEMENT OF PATIENT CARE PER NURSING PROTOCOL Performed By: #### L 501.080 #### [facility] [address] [place], [address] FINGERSTICK GLU 475 mg/dL Invalid Interpretation Code 74-106 [facility] Comment on above: Result Comment: Dr Erica egan Followed MANAGEMENT OF PATIENT CARE PER NURSING PROTOCOL Performed By: #### L 100.0100, L300.8000, L501.9520, L505.5000, L500.2500 #### [facility] [address] [place], [address] FINGERSTICK GLU 427 mg/dL High 74-106 [facility] Comment on above: Result Comment: TEJAL GEMENT OF PATIENT CARE PER NURSING PROTOCOL Performed By: #### L 100.0100, L300.8000, L501.9520, L505.5000, L500.2500 #### [facility] [address] [place], [address] Beta-Hydroxbytyrateon 2024 BETA-HYDROXYBUT 1.1 mmol/L High 0.0-0.3 [facility] Comment on above: Performed By: #### L 100.0100, L300.8000, L501.9520, L505.5000, L500.2500 #### [facility] [address] [place], [address] Beta-hydroxybutyrateOrdered By: Beverly Ca on 01-26-2025 Beta hydroxybutyrate [Mass/Vol] 1.1 mmol/L High 0.0-0.3 [facility] CBC W/Diff, Automatedon 01-08 Absolute Lymph 3.02 X10 3/uL Normal 0.83-4.51 [facility] Comment on above: Performed By: #### L 100.0100, L300.8000, L501.9520, L505.5000, L500.2500 #### [facility] [address] [place], [address] Absolute Neut 6.1 X10 3/uL Normal 2.0-7.7 [facility] Comment on above: Performed By: #### L 100.0100, L300.8000, L501.9520, L505.5000, L500.2500 #### [facility] [address] [place], [address] Basophils/100 WBC (Bld) 0.6 % Normal 0-1 [facility] Comment on above: Performed By: #### L 100.0100, L300.8000, L501.9520, L505.5000, L500.2500 #### [facility] [address] [place], [address] Eosinophils/100 WBC (Bld) 5.1 % High 0-5 [facility] Comment on above: Performed By: #### L 100.0100, L300.8000, L501.9520, L505.5000, L500.2500 #### [facility] [address] [place], [address] Erythrocyte distribution width (RBC) [Ratio] 15.8 % High 11.6-14.6 [facility] Comment on above: Performed By: #### L 100.0100, L300.8000, L501.9520, L505.5000, L500.2500 #### [facility] [address] [place], [address] Hematocrit (Bld) [Volume fraction] 38.7 % Low 40-54 [facility] Comment on above: Performed By: #### L 100.0100, L300.8000, L501.9520, L505.5000, L500.2500 #### [facility] [address] [place], [address] Hemoglobin (Bld) [Mass/Vol] 12.4 g/dL Low 13.0-16.5 [facility] Comment on above: Performed By: #### L 100.0100, L300.8000, L501.9520, L505.5000, L500.2500 #### [facility] [address] [place], [address] IG% 0.300 Normal 0.0-0.9 [facility] Comment on above: Result Comment: IG% - Immature Granulocytes (promyelocytes, myelocytes and metamyelocytes) > 1% indicates that a LEFT SHIFT is Present. Performed By: #### L 100.0100, L300.8000, L501.9520, L505.5000, L500.2500 #### [facility] [address] [place], [address] Lymphocytes/100 WBC (Bld) 28.9 % Normal 19-41 [facility] Comment on above: Performed By: #### L 100.0100, L300.8000, L501.9520, L505.5000, L500.2500 #### [facility] [address] [place], [address] MCH (RBC) [Entitic mass] 24.1 pg Low 27.0-32.0 [facility] Comment on above: Performed By: #### L 100.0100, L300.8000, L501.9520, L505.5000, L500.2500 #### [facility] [address] [place], [address] MCHC (RBC) [Mass/Vol] 32.0 g/dL Normal 32-36 [facility] Comment on above: Performed By: #### L 100.0100, L300.8000, L501.9520, L505.5000, L500.2500 #### [facility] [address] [place], [address] MCV (RBC) [Entitic vol] 75.1 fL Low 80-94 [facility] Comment on above: Performed By: #### L 100.0100, L300.8000, L501.9520, L505.5000, L500.2500 #### [facility] [address] [place], [address] Monocytes/100 WBC (Bld) 6.8 % Normal 0-10 [facility] Comment on above: Performed By: #### L 100.0100, L300.8000, L501.9520, L505.5000, L500.2500 #### [facility] [address] [place], [address] Neutrophils/100 WBC (Bld) 58.3 % Normal 47-70 [facility] Comment on above: Performed By: #### L 100.0100, L300.8000, L501.9520, L505.5000, L500.2500 #### [facility] [address] [place], [address] Nucleated RBC (Bld) [#/Vol] 0 10*3/uL Normal 0-5 [facility] Comment on above: Performed By: #### L 100.0100, L300.8000, L501.9520, L505.5000, L500.2500 #### [facility] [address] [place], [address] Platelet mean volume (Bld) [Entitic vol] 10.8 fL Normal 6.2-12.0 [facility] Comment on above: Performed By: #### L 100.0100, L300.8000, L501.9520, L505.5000, L500.2500 #### [facility] [address] [place], [address] Platelets (Bld) [#/Vol] 328 10*3/uL Normal 150-450 [facility] Comment on above: Performed By: #### L 100.0100, L300.8000, L501.9520, L505.5000, L500.2500 #### [facility] [address] [place], [address] RBC (Bld) [#/Vol] 5.15 10*6/uL Normal 4.6-6.2 [facility] Comment on above: Performed By: #### L 100.0100, L300.8000, L501.9520, L505.5000, L500.2500 #### [facility] [address] [place], [address] RDW SD 42.6 fl Normal 35.1-43.9 [facility] Comment on above: Performed By: #### L 100.0100, L300.8000, L501.9520, L505.5000, L500.2500 #### [facility] [address] [place], [address] WBC (Bld) [#/Vol] 10.4 10*3/uL Normal 4.4-11.0 [facility] Comment on above: Performed By: #### L 100.0100, L300.8000, L501.9520, L505.5000, L500.2500 #### [facility] [address] [place], [address] CO2 (BldV) [Moles/Vol]Ordere d By: Keisha Handy on 01-26-2025 CO2 [Moles/Vol] 29 mmol/L 23-33 [facility] Carbon dioxide, total [Moles /volume] in Central venous bloodOrdered By: Beverly Ca on 01-26-2025 CO2 [Moles/Vol] 22.8 mmol/L 21.0-32.0 [facility] Chest PA and Lateralon 01-26 Chest PA and Lateral [facility] [address] [place] [address] Chest PA and Lateral MR#: [id number] Acct: [id number] Name: UNA COSBY Rep #: [id number] : 1995 M 29 From: David stearns MD PCP: Josep Hall,No Primary Status: REG ER Study: Chest PA and Lateral Date of Exam: 01/26/25 Exam# [id number] Ordering Dr: Beverly Ca PROCEDURE: CHEST PA AND LATERAL 01/26/2025 REASON FOR EXAM: CHEST PAIN TECHNIQUE: CHEST PA AND LATERAL COMPARISON: Prior study dated October 19, 2024. FINDINGS: Hardware: EKG electrodes. Heart: Unremarkable Mediastinum: The mediastinal contour is unremarkable. Lungs: The lungs are clear. Bones: The bones are unremarkable. RAD/Chest PA and Lateral IMPRESSION: NO ACUTE FINDINGS. Reading Location: [place] [address] CC: ZAIN Baker; No Primary Care Physician Client Development Consultant: Signed Normal [facility] Chloride assayOrdered By: Katarina aC on 01-26-2025 Chloride [Moles/Vol] 98 mmol/L 98-108 [facility] D-Dimer Quantitative (DVT/PE )on 01-26-2025 D-DIMER QUANT 0.27 FEU/ug/m Normal 0.27-0.49 [facility] Comment on above: Result Comment: NORM AL D-Dimer level (<0.50) indicates no DVT or PE. Performed By: #### L 100.0100, L300.8000, L501.9520, L505.5000, L500.2500 #### [facility] [address] [place], [address] Emergency Department Summary on 01-26-2025 Emergency Department Summary [facility] Medical Records Department [address] [place] [address] Emergency Department Summary 01/26/25 MR#: [id number] Acct: [id number] Name: UNA COSBY Rep #: [id number] : 1995 29 From: Beverly PITTMAN PCP: [...] Respiratory Effo (more content not included)... Normal [facility] Eosinophil percentageOrdered By: Beverly Ca on 01-26-2025 Eosinophils/100 WBC (Bld) 5.1 % High 0-5 [facility] Erythrocyte distribution wid th ratioOrdered By: Beverly Ca on 01-26-2025 Erythrocyte distribution width (RBC) [Ratio] 15.8 % High 11.6-14.6 [facility] Erythrocyte distribution wid th standard deviationOrdered By: Beverly Ca on 01-26-2025 Erythrocyte distribution width (RBC) [Ratio] 42.6 fl 35.1-43.9 [facility] Glomerular filtration rate ( GFR) estimation/1.73 sq m using serum, plasma, or whole bOrdered By: Beverly Ca on 01-26-2025 GFR/1.73 sq M.predicted among non-blacks MDRD (S/P/Bld) [Vol rate/Area] 132 mL/min/{1.73_m2} >60 [facility] Comment on above: mL/min/1.73m2 CKD-EP I Creatinine Equation (2020) [facility] deOrdered By: Keisha Handy on 01-26-2025 Glucose [Mass/Vol] 189 mg/dL High 74-106 [facility] Comment on above: MANAGEMENT OF PATIEN T CARE PER NURSING PROTOCOL Hematocrit Auto (Bld) [Volum e fraction]Ordered By: Beverly Ca on 01-26-2025 Hematocrit (Bld) [Volume fraction] 38.7 % Low 40-54 [facility] Hemoglobin measurementOrdere d By: Beverly Ca on 01-26-2025 Hemoglobin (Bld) [Mass/Vol] 12.4 g/dL Low 13.0-16.5 [facility] Immature granulocytes/100 WB C Auto (Bld)Ordered By: Beverly Ca on 01-26-2025 Immature granulocytes/100 WBC (Bld) 0.300 % 0.0-0.9 [facility] Comment on above: IG% - Immature Granu locytes (promyelocytes, myelocytes and metamyelocytes) > 1% indicates that a LEFT SHIFT is Present. L501.4021on 01-26-2025 Trop T High Sen 15 ng/L Normal <=22 [facility] Comment on above: Performed By: #### L 100.0100, L300.8000, L501.9520, L505.5000, L500.2500 #### [facility] [address] [place], [address] MCV (mean corpuscular volume ) determinationOrdered By: Beverly Ca on 01-26-2025 MCV (RBC) [Entitic vol] 75.1 fL Low 80-94 [facility] Mean corpuscular hemoglobin (MCH) determinationOrdered By: Beverly Ca on 01-26-2025 MCH (RBC) [Entitic mass] 24.1 pg Low 27.0-32.0 [facility] Mean corpuscular hemoglobin concentration (MCHC) determinationOrdered By: Beverly Ca on 01-26-2025 MCHC (RBC) [Mass/Vol] 32.0 g/dL 32-36 [facility] Mean platelet volume determi nationOrdered By: Beverly Ca on 01-26-2025 Platelet mean volume (Bld) [Entitic vol] 10.8 fL 6.2-12.0 [facility] Monocyte percentageOrdered B y: Beverly Ca on 01-26-2025 Monocytes/100 WBC (Bld) 6.8 % 0-10 [facility] Neutrophil percentageOrdered By: Beverly Ca on 01-26-2025 Neutrophils/100 WBC (Bld) 58.3 % 47-70 [facility] No Panel InformationOrdered By: Beverly Ca on 01-26-2025 Urine Buprenorphine Qualitative Negative < 200 ng/mL [facility] Urine Oxycodone Screen Negative < 100 ng/mL [facility] No Panel InformationOrdered By: Keisha Handy on 01-26-2025 Blood Gas Sample Site Not entered [facility] Blood Gas Specimen Type JAIDEN [facility] Oxygen Delivery Device Not entered [facility] Nucleated red blood cell per centageOrdered By: Beverly Ca on 01-26-2025 Nucleated RBC/100 WBC (Bld) [Ratio] 0 % 0-5 [facility] Platelet countOrdered By: Katarina Ca on 01-26-2025 Platelets (Bld) [#/Vol] 328 10*3/uL 150-450 [facility] Potassium measurement (mass/ volume)Ordered By: Beverly Ca on 01-26-2025 Potassium (Unsp spec) [Mass/Vol] 4.3 mmol/L 3.3-5.1 [facility] Quantitative urine opiates m easurementOrdered By: Beverly Ca on 01-26-2025 Opiates Ql (U) Negative < 300 ng/mL [facility] RBC Auto (Bld) [#/Vol]Ordere d By: Beverly Ca on 01-26-2025 RBC (Bld) [#/Vol] 5.15 10*6/uL 4.6-6.2 [facility] Screening urine fentanyl yaya surementOrdered By: Beverly Ca on 01-26-2025 fentaNYL Screen Ql (U) Negative [facility] Serum creatinine measurement (mass/volume)Ordered By: Beverly Ca on 01-26-2025 Creatinine [Mass/Vol] 0.65 mg/dL Low 0.70-1.20 [facility] Serum glucose measurement (m ass/volume)Ordered By: Beverly Ca on 01-26-2025 Glucose [Mass/Vol] 484 mg/dL High 70-99 [facility] Comment on above: Critical Result(s) C alled at: 01/26/2025-12:56 by: Koko Oh to Ge Long. Results read back by same. Serum or plasma calcium koby urement (mass/volume)Ordered By: Beverly Ca on 01-26-2025 Calcium [Mass/Vol] 8.7 mg/dL 7.6-11.0 [facility] Serum or plasma urea nitroge n measurement (mass/volume)Ordered By: Beverly Ca on 01-26-2025 Urea nitrogen [Mass/Vol] 18 mg/dL 4-19 [facility] Sodium levelOrdered By: Beverly Ca on 06-20-2025 Sodium [Moles/Vol] 133 mmol/L 133-145 [facility] TSH DL <= 0.005 mIU/L QnOrde red By: Beverly Ca on 01-26-2025 TSH Qn 2.430 uIU/mL 0.300-4.20 0 [facility] Thyroid Stim Hormone (TSH)on 01-26-2025 TSH 2.430 uIU/mL Normal 0.300-4.20 0 [facility] Comment on above: Performed By: #### L 100.0100, L300.8000, L501.9520, L505.5000, L500.2500 #### [facility] [address] [place], [place], [id number] ([phone]) Troponin T.cardiac [Mass/vol ume] in Serum or Plasma by High sensitivity methodOrdered By: Beverly Ca on 01-26-2025 Troponin T.cardiac High sensitivity method [Mass/Vol] 15 ng/L <22 [facility] Comment on above: Delta: 8 on 10/19/24 -0024 Urine Drug Screen (VISTA)on 01-26-2025 AMPHETAMINES Negative Normal <1000 ng/mL [facility] Comment on above: Performed By: #### L 100.0100, L300.8000, L501.9520, L505.5000, L500.2500 #### [facility] [address] [place], [address] BARBITIURATES Negative Normal < 200 ng/mL [facility] Comment on above: Performed By: #### L 100.0100, L300.8000, L501.9520, L505.5000, L500.2500 #### [facility] [address] [place], [address] BENZODIAZIPINE Negative Normal < 200 ng/mL [facility] Comment on above: Performed By: #### L 100.0100, L300.8000, L501.9520, L505.5000, L500.2500 #### [facility] [address] [place], [address] BUP Ur Drug Scr Negative Normal < 200 ng/mL [facility] Comment on above: Performed By: #### L 100.0100, L300.8000, L501.9520, L505.5000, L500.2500 #### [facility] [address] [place], [address] COCAINE Negative Normal < 300 ng/mL [facility] Comment on above: Performed By: #### L 100.0100, L300.8000, L501.9520, L505.5000, L500.2500 #### [facility] [address] [place], [address] Fentanyl Negative Normal [facility] Comment on above: Performed By: #### L 100.0100, L300.8000, L501.9520, L505.5000, L500.2500 #### [facility] [address] [place], [address] METHADONE Negative Normal < 300 ng/mL [facility] Comment on above: Performed By: #### L 100.0100, L300.8000, L501.9520, L505.5000, L500.2500 #### [facility] [address] [place], [address] OPIATES Negative Normal < 300 ng/mL [facility] Comment on above: Performed By: #### L 100.0100, L300.8000, L501.9520, L505.5000, L500.2500 #### [facility] [address] [place], [address] OXYCODONE Negative Normal < 100 ng/mL [facility] Comment on above: Performed By: #### L 100.0100, L300.8000, L501.9520, L505.5000, L500.2500 #### [facility] [address] [place], [address] PCP Negative Normal < 25 ng/mL [facility] Comment on above: Performed By: #### L 100.0100, L300.8000, L501.9520, L505.5000, L500.2500 #### [facility] [address] [place], [address] THC Negative Normal < 50 ng/mL [facility] Comment on above: Performed By: #### L 100.0100, L300.8000, L501.9520, L505.5000, L500.2500 #### [facility] [address] [place], [address] Urine benzodiazepine levelOr dered By: Beverly Ca on 01-26-2025 Benzodiazepines Ql (U) Negative < 200 ng/mL [facility] Urine cocaine levelOrdered B y: Beveryl Ca on 01-26-2025 Cocaine Ql (U) Negative < 300 ng/mL [facility] Urine bgnrx-7-bnksstklwvcmyj abinol (THC) measurementOrdered By: Beverly Ca on 01-26-2025 Cannabinoids Screen Ql (U) Negative < 50 ng/mL [facility] Urine phencyclidine (PCP) de tectionOrdered By: Beverly Ca on 01-26-2025 Phencyclidine Ql (U) Negative < 25 ng/mL [facility] Venous Blood Gason Blood Gas Type JAIDEN Normal [facility] Comment on above: Performed By: #### L 100.0100, L300.8000, L501.9520, L505.5000, L500.2500 #### [facility] [address] [place], [address] CO2 [Moles/Vol] 29 mmol/L Normal 23-33 [facility] Comment on above: Performed By: #### L 100.0100, L300.8000, L501.9520, L505.5000, L500.2500 #### [facility] [address] [place], [address] HCO3 (Bld) [Moles/Vol] 27 mmol/L High 22-26 [facility] Comment on above: Performed By: #### L 100.0100, L300.8000, L501.9520, L505.5000, L500.2500 #### [facility] [address] [place], [address] O2 Delivery Dev Not entered Normal [facility] Comment on above: Performed By: #### L 100.0100, L300.8000, L501.9520, L505.5000, L500.2500 #### [facility] [address] [place], [address] SITE Not entered Normal [facility] Comment on above: Performed By: #### L 100.0100, L300.8000, L501.9520, L505.5000, L500.2500 #### [facility] [address] [place], [address] VBG BE 2 mmol/L Normal -1.0-3.5 [facility] Comment on above: Performed By: #### L 100.0100, L300.8000, L501.9520, L505.5000, L500.2500 #### [facility] [address] [place], [address] VBG pCO2 45.0 mmHg Normal 41-51 [facility] Comment on above: Performed By: #### L 100.0100, L300.8000, L501.9520, L505.5000, L500.2500 #### [facility] [address] [place], [address] VBG pH 7.39 Normal 7.32-7.42 [facility] Comment on above: Performed By: #### L 100.0100, L300.8000, L501.9520, L505.5000, L500.2500 #### [facility] [address] [place], [address] VBG PO2 51 mmHg High 25-40 [facility] Comment on above: Performed By: #### L 100.0100, L300.8000, L501.9520, L505.5000, L500.2500 #### [facility] [address] [place], [address] VBG SO2 85 High 50-70 [facility] Comment on above: Performed By: #### L 100.0100, L300.8000, L501.9520, L505.5000, L500.2500 #### [facility] [address] [place], [address] Venous blood base excess yaya surementOrdered By: Keisha Handy on 01-26-2025 Base excess Calc (BldV) [Moles/Vol] 2 mmol/L -1.0-3.5 [facility] Venous blood bicarbonate yaya surementOrdered By: Keisha Handy on 01-26-2025 HCO3 (Bld) [Moles/Vol] 27 mmol/L High 22-26 [facility] Venous blood oxygen saturati on measurementOrdered By: Keisha Handy on 01-26-2025 Oxygen saturation in Blood 85 % High 50-70 [facility] Venous blood pH measurementO rdered By: Keisha Handy on 01-26-2025 pH (BldV) 7.39 [pH] 7.32-7.42 [facility] Venous blood partial pressur e of carbon dioxide measurementOrdered By: Keisha Handy on 01-26-2025 CO2 (BldV) [Partial pressure] 45.0 mm[Hg] 41-51 [facility] Venous blood partial pressur e of oxygen measurementOrdered By: Keisha Handy on 01-26-2025 Oxygen (BldV) [Partial pressure] 51 mm[Hg] High 25-40 [facility] White blood cell (WBC) count Ordered By: Beverly Ca on 01-26-2025 WBC (Bld) [#/Vol] 10.4 10*3/uL 4.4-11.0 [facility] Anion gap in Serum or Plasma Ordered By: Juan Rivas on 12-14-2024 Anion gap [Moles/Vol] 9 mmol/L 5-15 [facility] BUN/creatinine ratioOrdered By: Juan Rivas on 12-14-2024 Urea nitrogen/Creatinine [Mass ratio] 16.2 mg/mg - [facility] Basic Metabolic Profile (BMP )on 12-14-2024 BUN/CRE 16.2 RATIO Normal - [facility] Comment on above: Performed By: #### L 100.0100, L300.8000, L501.9520, L505.5000, L500.2500 #### [facility] [address] [place], [address] Calcium [Mass/Vol] 7.8 mg/dL Normal 7.6-11.0 [facility] Comment on above: Performed By: #### L 100.0100, L300.8000, L501.9520, L505.5000, L500.2500 #### [facility] [address] [place], [address] Chloride [Moles/Vol] 103 mmol/L Normal 98-108 [facility] Comment on above: Performed By: #### L 100.0100, L300.8000, L501.9520, L505.5000, L500.2500 #### [facility] [address] [place], [address] CO2 [Moles/Vol] 24.0 mmol/L Normal 21.0-32.0 [facility] Comment on above: Performed By: #### L 100.0100, L300.8000, L501.9520, L505.5000, L500.2500 #### [facility] [address] [place], [address] Creatinine [Mass/Vol] 0.64 mg/dL Low 0.70-1.20 [facility] Comment on above: Performed By: #### L 100.0100, L300.8000, L501.9520, L505.5000, L500.2500 #### [facility] [address] [place], [address] ECRCL 126.32 ml/min Normal 50-250 [facility] Comment on above: Performed By: #### L 100.0100, L300.8000, L501.9520, L505.5000, L500.2500 #### [facility] [address] [place], [address] GAP 9 Normal 5-15 [facility] Comment on above: Performed By: #### L 100.0100, L300.8000, L501.9520, L505.5000, L500.2500 #### [facility] [address] [place], [address] GFR/1.73 sq M.predicted among non-blacks MDRD (S/P/Bld) [Vol rate/Area] 133 mL/min/{1.73_m2} Normal >60 [facility] Comment on above: Result Comment: mL/m in/1.73m2 CKD-EPI Creatinine Equation (2020) Performed By: #### L 100.0100, L300.8000, L501.9520, L505.5000, L500.2500 #### [facility] [address] [place], [address] Glucose [Mass/Vol] 275 mg/dL High 70-99 [facility] Comment on above: Performed By: #### L 100.0100, L300.8000, L501.9520, L505.5000, L500.2500 #### [facility] [address] [place], [address] Potassium [Moles/Vol] 3.6 mmol/L Normal 3.3-5.1 [facility] Comment on above: Performed By: #### L 100.0100, L300.8000, L501.9520, L505.5000, L500.2500 #### [facility] [address] [place], [address] Sodium [Moles/Vol] 136 mmol/L Normal 133-145 [facility] Comment on above: Performed By: #### L 100.0100, L300.8000, L501.9520, L505.5000, L500.2500 #### [facility] [address] [place], [address] Urea nitrogen [Mass/Vol] 10 mg/dL Normal 4-19 [facility] Comment on above: Performed By: #### L 100.0100, L300.8000, L501.9520, L505.5000, L500.2500 #### [facility] [address] [place], [address] Bedside Glucoseon 12-14-2024 FINGERSTICK GLU 286 mg/dL High 74-106 [facility] Comment on above: Result Comment: TEJAL GEMENT OF PATIENT CARE PER NURSING PROTOCOL Performed By: #### L 501.080 #### [facility] [address] [place], [address] FINGERSTICK GLU 433 mg/dL High 74-106 [facility] Comment on above: Result Comment: TEJAL GEMENT OF PATIENT CARE PER NURSING PROTOCOL Performed By: #### L 100.0100, L300.8000, L501.9520, L505.5000, L500.2500 #### [facility] [address] [place], [address] FINGERSTICK GLU 262 mg/dL High 74-106 [facility] Comment on above: Result Comment: TEJAL GEMENT OF PATIENT CARE PER NURSING PROTOCOL Performed By: #### L 100.0100, L300.8000, L501.9520, L505.5000, L500.2500 #### [facility] [address] [place], [address] FINGERSTICK GLU 337 mg/dL High 74-106 [facility] Comment on above: Result Comment: TEJAL GEMENT OF PATIENT CARE PER NURSING PROTOCOL Performed By: #### L 100.0100, L300.8000, L501.9520, L505.5000, L500.2500 #### [facility] [place], [address] Carbon dioxide, total [Moles /volume] in Central venous bloodOrdered By: Juan Rivas on 12-14-2024 CO2 [Moles/Vol] 24.0 mmol/L 21.0-32.0 [facility] Chloride assayOrdered By: Cesar Rivas on 12-14-2024 Chloride [Moles/Vol] 103 mmol/L 98-108 [facility] Glomerular filtration rate ( GFR) estimation/1.73 sq m using serum, plasma, or whole bOrdered By: Juan Rivas on 12-14-2024 GFR/1.73 sq M.predicted among non-blacks MDRD (S/P/Bld) [Vol rate/Area] 133 mL/min/{1.73_m2} >60 [facility] Comment on above: mL/min/1.73m2 CKD-EP I Creatinine Equation (2020) [facility] at [facility] deOrdered By: Juan Rivas on 12-14-2024 Glucose [Mass/Vol] 286 mg/dL High 74-106 [facility] Comment on above: MANAGEMENT OF PATIEN T CARE PER NURSING PROTOCOL Potassium measurement (mass/ volume)Ordered By: Juan Rivas on 12-14-2024 Potassium (Unsp spec) [Mass/Vol] 3.6 mmol/L 3.3-5.1 [facility] Serum creatinine measurement (mass/volume)Ordered By: Juan Rivas on 12-14-2024 Creatinine [Mass/Vol] 0.64 mg/dL Low 0.70-1.20 [facility] Serum glucose measurement (m ass/volume)Ordered By: Juan Rivas on 12-14-2024 Glucose [Mass/Vol] 275 mg/dL High 70-99 [facility] Serum or plasma calcium koby urement (mass/volume)Ordered By: Juan Rivas on 12-14-2024 Calcium [Mass/Vol] 7.8 mg/dL 7.6-11.0 [facility] Serum or plasma urea nitroge n measurement (mass/volume)Ordered By: Juan Rivas on 12-14-2024 Urea nitrogen [Mass/Vol] 10 mg/dL 4-19 [facility] Sodium levelOrdered By: Sav Rivas on 12-14-2024 Sodium [Moles/Vol] 136 mmol/L 133-145 [facility] 12 Lead EKGon 12-13-2024 12 Lead EKG [facility] [address] [place] [address] 12 Lead EKG 12/13/24 2230 MR#: [id number] Acct: [id number] Name: UNA COSBY Rep #: [id number] : 1995 From: Doyle Morales MD Attending [...] normal ECG Confirmed by Doyle Morales ([id number]), communications editor DOMINIC KEENE ([id number]) on 12/15/2024 12:14:41 PM Referred By: Confirmed By: Doyle Morales 12/15/24 1214 Date Doyle Morales MD CC: Dr. Juan Rivas MD; No Primary Care Physician Signed Normal [facility] Absolute lymphocyte countOrd ered By: Juan Rivas on 12-13-2024 Lymphocytes Auto (Unsp spec) [#/Vol] 3.83 10*3/uL 0.83-4.51 [facility] Absolute neutrophil countOrd ered By: Juan Rivas on 12-13-2024 Neutrophils (Bld) [#/Vol] 6.1 10*3/uL 2.0-7.7 [facility] Automated lymphocyte count a s percentage of total leukocytesOrdered By: Juan Rivas on 12-13-2024 Lymphocytes/100 WBC Auto (Unsp spec) 33.9 % 19-41 [facility] Basic Metabolic Profile (BMP )on 12-13-2024 BUN/CRE 16.3 RATIO Normal 10-20 [facility] Comment on above: Performed By: #### L 500.2500, L501.6901 ####[facility] [address] [place], [address] Calcium [Mass/Vol] 9.0 mg/dL Normal 7.6-11.0 [facility] Comment on above: Performed By: #### L 500.2500, L501.6901 ####[facility] [address] [place], [address] Chloride [Moles/Vol] 90 mmol/L Low 98-108 [facility] Comment on above: Performed By: #### L 500.2500, L501.6901 ####[facility] [address] [place], [address] CO2 [Moles/Vol] 27.2 mmol/L Normal 21.0-32.0 [facility] Comment on above: Performed By: #### L 500.2500, L501.6901 ####[facility] [address] [place], [address] Creatinine [Mass/Vol] 0.84 mg/dL Normal 0.70-1.20 [facility] Comment on above: Performed By: #### L 500.2500, L501.6901 ####[facility] [address] [place], [address] ECRCL 96.24 ml/min Normal 50-250 [facility] Comment on above: Performed By: #### L 500.2500, L501.6901 ####[facility] [address] [place], [address] GAP 12 Normal 5-15 [facility] Comment on above: Performed By: #### L 500.2500, L501.6901 ####[facility] [address] [place], [address] GFR/1.73 sq M.predicted among non-blacks MDRD (S/P/Bld) [Vol rate/Area] 123 mL/min/{1.73_m2} Normal >60 [facility] Comment on above: Result Comment: mL/m in/1.73m2 CKD-EPI Creatinine Equation (2020) Performed By: #### L 500.2500, L501.6901 ####[facility] [address] [place], [address] Glucose [Mass/Vol] 520 mg/dL Invalid Interpretation Code 70-99 [facility] Comment on above: Result Comment: Crit ical Result(s) Called at: 2248 by: WILLIAM HERRERA TO GE TENNENT??Results read back by same. Performed By: #### L 500.2500, L501.6901 ####[facility] [address] [place], [address] Potassium [Moles/Vol] 5.3 mmol/L High 3.3-5.1 [facility] Comment on above: Performed By: #### L 500.2500, L501.6901 ####[facility] [address] [place], [address] Sodium [Moles/Vol] 129 mmol/L Low 133-145 [facility] Comment on above: Performed By: #### L 500.2500, L501.6901 ####[facility] [address] [place], [address] Urea nitrogen [Mass/Vol] 14 mg/dL Normal 4-19 [facility] Comment on above: Performed By: #### L 500.2500, L501.6901 ####[facility] [address] [place], [address] Basophil percentageOrdered B y: Juan Rivas on 12-13-2024 Basophils/100 WBC (Bld) 0.6 % 0-1 [facility] Bedside Glucoseon 12-13-2024 FINGERSTICK GLU 490 mg/dL Invalid Interpretation Code 74-106 [facility] Comment on above: Result Comment: Dr Erica egan Followed MANAGEMENT OF PATIENT CARE PER NURSING PROTOCOL Performed By: #### L 100.0100, L300.8000, L501.9520, L505.5000, L500.2500 #### [facility] [address] [place], [address] Beta-Hydroxbytyrateon 2024 BETA-HYDROXYBUT 1.7 mmol/L Normal 0.0-0.3 [facility] Comment on above: Performed By: #### L 500.2500, L501.6901 ####[facility] [address] [place], [address] Beta-hydroxybutyrateOrdered By: Juan Rivas on 12-13-2024 Beta hydroxybutyrate [Mass/Vol] 1.7 mmol/L 0.0-0.3 [facility] Bilirubin Test strip Ql (U)O rdered By: Juan Rivas on 12-13-2024 Bilirubin Ql (U) Negative Negative [facility] CBC W/Diff, Automatedon Absolute Lymph 3.83 X10 3/uL Normal 0.83-4.51 [facility] Comment on above: Performed By: #### L 100.0100, L300.8000, L501.9520, L505.5000, L500.2500 #### [facility] [address] [place], [address] Absolute Neut 6.1 X10 3/uL Normal 2.0-7.7 [facility] Comment on above: Performed By: #### L 100.0100, L300.8000, L501.9520, L505.5000, L500.2500 #### [facility] [address] [place], [address] Basophils/100 WBC (Bld) 0.6 % Normal 0-1 [facility] Comment on above: Performed By: #### L 100.0100, L300.8000, L501.9520, L505.5000, L500.2500 #### [facility] [address] [place], [address] Eosinophils/100 WBC (Bld) 3.3 % Normal 0-5 [facility] Comment on above: Performed By: #### L 100.0100, L300.8000, L501.9520, L505.5000, L500.2500 #### [facility] [address] [place], [address] Erythrocyte distribution width (RBC) [Ratio] 15.2 % High 11.6-14.6 [facility] Comment on above: Performed By: #### L 100.0100, L300.8000, L501.9520, L505.5000, L500.2500 #### [facility] [address] [place], [address] Hematocrit (Bld) [Volume fraction] 43.1 % Normal 40-54 [facility] Comment on above: Performed By: #### L 100.0100, L300.8000, L501.9520, L505.5000, L500.2500 #### [facility] [address] [place], [address] Hemoglobin (Bld) [Mass/Vol] 13.9 g/dL Normal 13.0-16.5 [facility] Comment on above: Performed By: #### L 100.0100, L300.8000, L501.9520, L505.5000, L500.2500 #### [facility] [address] [place], [address] IG% 0.300 Normal 0.0-0.9 [facility] Comment on above: Result Comment: IG% - Immature Granulocytes (promyelocytes, myelocytes and metamyelocytes) > 1% indicates that a LEFT SHIFT is Present. Performed By: #### L 100.0100, L300.8000, L501.9520, L505.5000, L500.2500 #### [facility] [address] [place], [address] Lymphocytes/100 WBC (Bld) 33.9 % Normal 19-41 [facility] Comment on above: Performed By: #### L 100.0100, L300.8000, L501.9520, L505.5000, L500.2500 #### [facility] [address] [place], [address] MCH (RBC) [Entitic mass] 23.4 pg Low 27.0-32.0 [facility] Comment on above: Performed By: #### L 100.0100, L300.8000, L501.9520, L505.5000, L500.2500 #### [facility] [address] [place], [address] MCHC (RBC) [Mass/Vol] 32.3 g/dL Normal 32-36 [facility] Comment on above: Performed By: #### L 100.0100, L300.8000, L501.9520, L505.5000, L500.2500 #### [facility] [address] [place], [address] MCV (RBC) [Entitic vol] 72.7 fL Low 80-94 [facility] Comment on above: Performed By: #### L 100.0100, L300.8000, L501.9520, L505.5000, L500.2500 #### [facility] [address] [place], [address] Monocytes/100 WBC (Bld) 8.1 % Normal 0-10 [facility] Comment on above: Performed By: #### L 100.0100, L300.8000, L501.9520, L505.5000, L500.2500 #### [facility] [address] [place], [address] Neutrophils/100 WBC (Bld) 53.8 % Normal 47-70 [facility] Comment on above: Performed By: #### L 100.0100, L300.8000, L501.9520, L505.5000, L500.2500 #### [facility] [address] [place], [address] Nucleated RBC (Bld) [#/Vol] 0 10*3/uL Normal 0-5 [facility] Comment on above: Performed By: #### L 100.0100, L300.8000, L501.9520, L505.5000, L500.2500 #### [facility] [address] [place], [address] Platelet mean volume (Bld) [Entitic vol] 10.5 fL Normal 6.2-12.0 [facility] Comment on above: Performed By: #### L 100.0100, L300.8000, L501.9520, L505.5000, L500.2500 #### [facility] [address] [place], [address] Platelets (Bld) [#/Vol] 449 10*3/uL Normal 150-450 [facility] Comment on above: Performed By: #### L 100.0100, L300.8000, L501.9520, L505.5000, L500.2500 #### [facility] [address] [place], [address] RBC (Bld) [#/Vol] 5.93 10*6/uL Normal 4.6-6.2 [facility] Comment on above: Performed By: #### L 100.0100, L300.8000, L501.9520, L505.5000, L500.2500 #### [facility] [address] [place], [address] RDW SD 38.6 fl Normal 35.1-43.9 [facility] Comment on above: Performed By: #### L 100.0100, L300.8000, L501.9520, L505.5000, L500.2500 #### [facility] [address] [place], [address] WBC (Bld) [#/Vol] 11.3 10*3/uL High 4.4-11.0 [facility] Comment on above: Performed By: #### L 100.0100, L300.8000, L501.9520, L505.5000, L500.2500 #### [facility] [address] [place], [address] CO2 (BldV) [Moles/Vol]Ordere d By: Juan Rivas on 12-13-2024 CO2 [Moles/Vol] 28 mmol/L 23-33 [facility] Emergency Department Summary on 12-13-2024 Emergency Department Summary [facility] Medical Records Department [address] [facility] [place] [address] Emergency Department Summary 12/13/24 MR#: [id number] Acct: [id number] Name: UNA COSBY Rep #: [id number] : 1995 29 From: Juan Rivas MD [...] he cannot keep anything down all day. [facility] Medical History Learning difficulty due to [...] edema o (more content not included)... Normal [facility] Eosinophil percentageOrdered By: Juan Rivas on 12-13-2024 Eosinophils/100 WBC (Bld) 3.3 % 0-5 [facility] Erythrocyte distribution wid th ratioOrdered By: Juan Rivas on 12-13-2024 Erythrocyte distribution width (RBC) [Ratio] 15.2 % High 11.6-14.6 [facility] Erythrocyte distribution wid th standard deviationOrdered By: Juan Rivas on 12-13-2024 Erythrocyte distribution width (RBC) [Ratio] 38.6 fl 35.1-43.9 [facility] Hematocrit Auto (Bld) [Volum e fraction]Ordered By: Juan Rivas on 12-13-2024 Hematocrit (Bld) [Volume fraction] 43.1 % 40-54 [facility] Hemoglobin measurementOrdere d By: Juan Rivas on 12-13-2024 Hemoglobin (Bld) [Mass/Vol] 13.9 g/dL 13.0-16.5 [facility] Immature granulocytes/100 WB C Auto (Bld)Ordered By: Juan Rivas on 12-13-2024 Immature granulocytes/100 WBC (Bld) 0.300 % 0.0-0.9 [facility] Comment on above: IG% - Immature Granu locytes (promyelocytes, myelocytes and metamyelocytes) > 1% indicates that a LEFT SHIFT is Present. Ketones Test strip Ql (U)Ord ered By: Juan Rivas on 12-13-2024 Ketones Ql (U) 5 mg/dl High Negative [facility] MCV (mean corpuscular volume ) determinationOrdered By: Juan Rivas on 12-13-2024 MCV (RBC) [Entitic vol] 72.7 fL Low 80-94 [facility] Mean corpuscular hemoglobin (MCH) determinationOrdered By: Juan Rivas on 12-13-2024 MCH (RBC) [Entitic mass] 23.4 pg Low 27.0-32.0 [facility] Mean corpuscular hemoglobin concentration (MCHC) determinationOrdered By: Juan Rivas on 12-13-2024 MCHC (RBC) [Mass/Vol] 32.3 g/dL 32-36 [facility] Mean platelet volume determi nationOrdered By: Juan Rivas on 12-13-2024 Platelet mean volume (Bld) [Entitic vol] 10.5 fL 6.2-12.0 [facility] Microscopic analysis of urin e for red blood cells (RBC)Ordered By: Juan Rivas on 12-13-2024 Microscopic analysis of urine for red blood cells (RBC) 0 SEEN /hpf 0-5 [facility] Monocyte percentageOrdered B y: Juan Rivas on 12-13-2024 Monocytes/100 WBC (Bld) 8.1 % 0-10 [facility] Mucus LM Ql (Urine sed)Order ed By: Juan Rivas on 12-13-2024 Mucus Ql (Urine sed) 0 SEEN /hpf [facility] Neutrophil percentageOrdered By: Juan Rivas on 12-13-2024 Neutrophils/100 WBC (Bld) 53.8 % 47-70 [facility] Nitrite Test strip Ql (U)Ord ered By: Juan Rivas on 12-13-2024 Nitrite Ql (U) Negative Negative [facility] No Panel InformationOrdered By: Juan Rivas on 12-13-2024 Blood Gas Sample Site Not entered [facility] Blood Gas Specimen Type JAIDEN [facility] Oxygen Delivery Device Not entered [facility] Nucleated red blood cell per centageOrdered By: Juan Rivas on 12-13-2024 Nucleated RBC/100 WBC (Bld) [Ratio] 0 % 0-5 [facility] Platelet countOrdered By: Cesar Rivas on 12-13-2024 Platelets (Bld) [#/Vol] 449 10*3/uL 150-450 [facility] Protein Test strip Ql (U)Ord ered By: Juan Rivas on 12-13-2024 Protein Ql (U) 30 mg/dl High Negative [facility] RBC Auto (Bld) [#/Vol]Ordere d By: Juan Rivas on 12-13-2024 RBC (Bld) [#/Vol] 5.93 10*6/uL 4.6-6.2 [facility] Squamous epithelial cells de tection in urine sediment by light microscopyOrdered By: Juan Rivas on 12-13-2024 Epithelial cells.squamous LM Ql (Urine sed) 0 SEEN /hpf 0-5 [facility] Urinalysis, Completeon 12-13 BILIRUBIN URINE Negative Normal Negative [facility] Comment on above: Order Comment: MANN CTOR TO SPECIFY Performed By: #### L 400.0001 #### [facility] [address] [place], [place], [id number] Clarity (U) Clear Normal Clear [facility] Comment on above: Order Comment: MANN CTOR TO SPECIFY Performed By: #### L 400.0001 #### [facility] [address] [place], [place], [address] Color (U) Straw Normal Yellow [facility] Comment on above: Order Comment: MANN CTOR TO SPECIFY Performed By: #### L 400.0001 #### [facility] [address] [place], [address] GLUCOSE, UR 1000 mg/dl Abnormal Normal [facility] Comment on above: Order Comment: MANN CTOR TO SPECIFY Performed By: #### L 400.0001 #### [facility] [address] [place], [address] KETONE UR 5 mg/dl Abnormal Negative [facility] Comment on above: Order Comment: COLLE CTOR TO SPECIFY Performed By: #### L 400.0001 #### [facility] [address] [place], [address] LEUK ESTERASE Negative Normal Negative [facility] Comment on above: Order Comment: MANN CTOR TO SPECIFY Performed By: #### L 400.0001 #### [facility] [address] [place], [address] Nitrite Ql (U) Negative Normal Negative [facility] Comment on above: Order Comment: MANN CTOR TO SPECIFY Performed By: #### L 400.0001 #### [facility] [address] [place], [address] OCCULT BLOOD-UR 25 /ul Abnormal Negative [facility] Comment on above: Order Comment: MANN CTOR TO SPECIFY Performed By: #### L 400.0001 #### [facility] [address] [place], [address] pH UR 7.0 Normal 5.0 - 8.0 [facility] Comment on above: Order Comment: MANN CTOR TO SPECIFY Performed By: #### L 400.0001 #### [facility] [address] [place], [address] PROT DIPSTX 30 mg/dl Abnormal Negative [facility] Comment on above: Order Comment: MANN CTOR TO SPECIFY Performed By: #### L 400.0001 #### [facility] [address] [place], [address] SP.GR. DIPSTX 1.005 Normal 1.002-1.03 0 [facility] Comment on above: Order Comment: MANN CTOR TO SPECIFY Performed By: #### L 400.0001 #### [facility] [address] [place], [address] UROBILI Normal Normal Normal [facility] Comment on above: Order Comment: MANN CTOR TO SPECIFY Performed By: #### L 400.0001 #### [facility] [address] [place], [address] BACTERIA 0 SEEN Normal None Seen [facility] Comment on above: Order Comment: MANN CTOR TO SPECIFY Performed By: #### L 400.0001 #### [facility] [address] [place], [address] EPI,SQUAMOUS 0 SEEN Normal 0-5 [facility] Comment on above: Order Comment: MANN CTOR TO SPECIFY Performed By: #### L 400.0001 #### [facility] [address] [place], [address] Mucus Ql (Urine sed) 0 SEEN Normal [facility] Comment on above: Order Comment: MANN CTOR TO SPECIFY Performed By: #### L 400.0001 #### [facility] [address] [place], [address] RBC 0 SEEN Normal 0-5 [facility] Comment on above: Order Comment: MANN CTOR TO SPECIFY Performed By: #### L 400.0001 #### [facility] [address] [place], [address] WBC 0 SEEN Normal 0-5 [facility] Comment on above: Order Comment: MANN CTOR TO SPECIFY Performed By: #### L 400.0001 #### [facility] [address] [place], [address] Urine clarityOrdered By: Cherie Rivas on 12-13-2024 Clarity (U) Clear Clear [facility] Urine color determinationOrd ered By: Juan Rivas on 12-13-2024 Color (U) Straw Yellow [facility] Urine glucose detectionOrder ed By: Juan Rivas on 12-13-2024 Glucose Ql (U) 1000 mg/dl High Normal [facility] Urine leukocyte esterase det ection by dipstickOrdered By: Juan Rivas on 12-13-2024 Leukocyte esterase Test strip Ql (U) Negative Negative [facility] Urine pHOrdered By: Juan Rivas on 12-13-2024 pH (U) 7.0 [pH] 5.0 - 8.0 [facility] Urine sediment bacteria coun t by microscopy (number/high power field)Ordered By: Juan Rivas on 12-13-2024 Bacteria LM.HPF (Urine sed) [#/Area] 0 /[HPF] None Seen [facility] Urine specific gravity measu rementOrdered By: Juan Rivas on 12-13-2024 Specific gravity (U) [Rel density] 1.005 1.002-1.03 0 [facility] Urine urobilinogen measureme ntOrdered By: Juan Rivas on 12-13-2024 Urobilinogen Ql (U) Normal mg/dl Normal [facility] Venous Blood Gason Blood Gas Type JAIDEN Normal [facility] Comment on above: Performed By: #### L 100.0100, L300.8000, L501.9520, L505.5000, L500.2500 #### [facility] [address] [place], [place], [address] CO2 [Moles/Vol] 28 mmol/L Normal 23-33 [facility] Comment on above: Performed By: #### L 100.0100, L300.8000, L501.9520, L505.5000, L500.2500 #### [facility] [address] [facility] [place], [place], [id number] FI02 21.0 Normal [facility] Comment on above: Performed By: #### L 100.0100, L300.8000, L501.9520, L505.5000, L500.2500 #### [facility] [address] [place], [address] HCO3 (Bld) [Moles/Vol] 27 mmol/L High 22-26 [facility] Comment on above: Performed By: #### L 100.0100, L300.8000, L501.9520, L505.5000, L500.2500 #### [facility] [address] [place], [address] O2 Delivery Dev Not entered Normal [facility] Comment on above: Performed By: #### L 100.0100, L300.8000, L501.9520, L505.5000, L500.2500 #### [facility] [address] [place], [address] SITE Not entered Normal [facility] Comment on above: Performed By: #### L 100.0100, L300.8000, L501.9520, L505.5000, L500.2500 #### [facility] [address] [place], [address] VBG BE 4 mmol/L High -1.0-3.5 [facility] Comment on above: Performed By: #### L 100.0100, L300.8000, L501.9520, L505.5000, L500.2500 #### [facility] [address] [place], [address] VBG pCO2 34.4 mmHg Low 41-51 [facility] Comment on above: Performed By: #### L 100.0100, L300.8000, L501.9520, L505.5000, L500.2500 #### [facility] [address] [place], [address] VBG pH 7.50 High 7.32-7.42 [facility] Comment on above: Performed By: #### L 100.0100, L300.8000, L501.9520, L505.5000, L500.2500 #### [facility] [address] [place], [address] VBG PO2 76 mmHg High 25-40 [facility] Comment on above: Performed By: #### L 100.0100, L300.8000, L501.9520, L505.5000, L500.2500 #### [facility] [address] [place], [address] VBG SO2 96 High 50-70 [facility] Comment on above: Performed By: #### L 100.0100, L300.8000, L501.9520, L505.5000, L500.2500 #### [facility] [address] [place], [address] Venous blood base excess yaya surementOrdered By: Juan Rivas on 12-13-2024 Base excess Calc (BldV) [Moles/Vol] 4 mmol/L High -1.0-3.5 [facility] Venous blood bicarbonate yaya surementOrdered By: Juan Rivas on 12-13-2024 HCO3 (Bld) [Moles/Vol] 27 mmol/L High 22-26 [facility] Venous blood oxygen saturati on measurementOrdered By: Juan Rivas on 12-13-2024 Oxygen saturation in Blood 96 % High 50-70 [facility] Venous blood pH measurementO rdered By: Juan Rivas on 12-13-2024 pH (BldV) 7.50 [pH] High 7.32-7.42 [facility] Venous blood partial pressur e of carbon dioxide measurementOrdered By: Juan Rivas on 12-13-2024 CO2 (BldV) [Partial pressure] 34.4 mm[Hg] Low 41-51 [facility] Venous blood partial pressur e of oxygen measurementOrdered By: Juan Rivas on 12-13-2024 Oxygen (BldV) [Partial pressure] 76 mm[Hg] High 25-40 [facility] White blood cell (WBC) count Ordered By: Juan Rivas on 12-13-2024 WBC (Bld) [#/Vol] 11.3 10*3/uL High 4.4-11.0 [facility] White blood cell countOrdere d By: Juan Rivas on 12-13-2024 White blood cell count 0 SEEN /hpf 0-5 [facility] Emergency Department Summary on 12-12-2024 Emergency Department Summary [facility] Medical Records Department [address] [place] [address] Emergency Department Summary 12/12/24 MR#: [id number] Acct: [id number] Name: UNA COSBY Rep #: [id number] : 1995 29 From: Arik Boswell MD [...] Funtion Narrative Narrative: Patient is a 29-year-old cwaxq-sqdg-umluyzss male who presents with atraumatic left shoulder [...] function intact (more content not included)... Normal [facility] Shoulder min 2 Viewson 12-12 Shoulder min 2 Views [facility] Imaging Services [address] [place] [address] Shoulder min 2 Views MR#: [id number] Acct: [id number] Name: UNA COSBY Rep #: [id number] : 1995 M 29 From: Deangelo Peña MD PCP: Care Physician,No Primary Status: REG ER Study: Shoulder min 2 Views Date of Exam: 12/12/24 Exam# [id number] Ordering Dr: Arik Boswell MD PROCEDURE: SHOULDER MIN 2 VIEWS, 12/12/2024 REASON FOR EXAM: INJURY/PAIN TECHNIQUE: AP, Grashey, scapular Y, and axillary views of the LEFT shoulder were obtained. COMPARISON: None FINDINGS: Fracture/dislocation: None visible. Joint space(s): Preserved. Soft tissues: Unremarkable. Foreign bodies: None visible. Bone mineralization: Unremarkable. Other: None. RAD/Shoulder min 2 Views IMPRESSION: No visible acute abnormality. Reading Location: [id number] CC: Dr. Arik Boswell MD; No Primary Care Physician Client Development Consultant: Signed Normal [facility] CBC W/Diff, Automatedon 11-07 PATH REV Reviewed Normal [facility] Comment on above: Result Comment: SEE REPORT IN PATIENT'S EMR AMENDED REPORT 11/23/24 1409 PATH REV previously reported as: December Performed By: #### L 100.0100, L300.8000, L501.8620, L505.5000, L500.2500 #### [facility] [address] [place], [place], [id number] Absolute lymphocyte countOrd ered By: Lourdes Metz on 11-11-2024 Lymphocytes Auto (Unsp spec) [#/Vol] 2.97 10*3/uL 0.83-4.51 [facility] Absolute neutrophil countOrd ered By: Lourdes Metz on 11-11-2024 Neutrophils (Bld) [#/Vol] 11.8 10*3/uL High 2.0-7.7 [facility] Anion gap in Serum or Plasma Ordered By: Lourdes Metz on 11-11-2024 Anion gap [Moles/Vol] 11 mmol/L 5-15 [facility] Automated lymphocyte count a s percentage of total leukocytesOrdered By: Lourdes Metz on 11-11-2024 Lymphocytes/100 WBC Auto (Unsp spec) 17.9 % Low 19-41 [facility] BUN/creatinine ratioOrdered By: Lourdes Metz on 11-11-2024 Urea nitrogen/Creatinine [Mass ratio] 16.4 mg/mg 10-20 [facility] Base excess Calc (BldV) [Mol es/Vol]Ordered By: Steven Donaldson on 11-11-2024 Venous Blood Base Excess 2 mmol/L -1.0-3.5 [facility] Basophil percentageOrdered B y: Lourdes Metz on 11-11-2024 Basophils/100 WBC (Bld) 0.2 % 0-1 [facility] Beta hydroxybutyrate [Mass/V ol]Ordered By: Lourdes Metz on 11-11-2024 Beta-Hydroxybutyric Acid mmol/L 0.6 mmol/L 0.0-0.3 [facility] Beta-Hydroxbytyrateon 2024 BETA-HYDROXYBUT 0.6 mmol/L Normal 0.0-0.3 [facility] Comment on above: Performed By: #### L 100.0100, L300.8000, L501.9520, L505.5000, L500.2500 #### [facility] [address] [place], [place], [id number] Beta-hydroxybutyrateOrdered By: Lourdes Metz on 11-11-2024 Beta hydroxybutyrate [Mass/Vol] 0.6 mmol/L 0.0-0.3 [facility] Bilirubin, totalOrdered By: Lourdes Metz on 11-11-2024 Bilirubin [Mass/Vol] mg/dL 0.00-1.30 [facility] Blood manual differential co mment interpretation (narrative result)Ordered By: Lourdes Metz on 11-11-2024 Manual differential comment Gigi (Bld) [Interp] SCANNED [facility] CO2 (BldV) [Moles/Vol]Ordere d By: Steven Donaldson on 11-11-2024 CO2 [Moles/Vol] 28 mmol/L 23-33 [facility] CO2 (BldV) [Partial pressure ]Ordered By: Steven Donaldson on 11-11-2024 Bed Mix Venous Bld PCO2 at Pat Temp 39.6 mmHg Low 41-51 [facility] Carbon dioxide, total [Moles /volume] in Central venous bloodOrdered By: Lourdes Metz on 11-11-2024 CO2 [Moles/Vol] 24.8 mmol/L 21.0-32.0 [facility] Chloride assayOrdered By: Malena Metz on 11-11-2024 Chloride [Moles/Vol] 102 mmol/L 98-108 [facility] Comprehensive Metabolic Prof ilon 11-11-2024 Albumin [Mass/Vol] 3.6 g/dL Normal 3.5-5.0 [facility] Comment on above: Performed By: #### L 100.0100, L300.8000, L501.9520, L505.5000, L500.2500 #### [facility] [address] [place], [address] Albumin/Globulin [Mass ratio] 1.4 {ratio} Normal 0.9-2.4 [facility] Comment on above: Performed By: #### L 100.0100, L300.8000, L501.9520, L505.5000, L500.2500 #### [facility] [address] [place], [address] ALK PHOS 123 U/L Normal 40-129 [facility] Comment on above: Performed By: #### L 100.0100, L300.8000, L501.9520, L505.5000, L500.2500 #### [facility] [address] [place], [address] ALT [Catalytic activity/Vol] 20 U/L Normal <=46 [facility] Comment on above: Performed By: #### L 100.0100, L300.8000, L501.9520, L505.5000, L500.2500 #### [facility] [address] [place], [address] AST [Catalytic activity/Vol] 18 U/L Normal <=37 [facility] Comment on above: Performed By: #### L 100.0100, L300.8000, L501.9520, L505.5000, L500.2500 #### [facility] [address] [place], [address] BUN/CRE 16.4 RATIO Normal 10-20 [facility] Comment on above: Performed By: #### L 100.0100, L300.8000, L501.9520, L505.5000, L500.2500 #### [facility] [address] [place], [address] Calcium [Mass/Vol] 8.3 mg/dL Normal 7.6-11.0 [facility] Comment on above: Performed By: #### L 100.0100, L300.8000, L501.9520, L505.5000, L500.2500 #### [facility] [address] [place], [address] Chloride [Moles/Vol] 102 mmol/L Normal 98-108 [facility] Comment on above: Performed By: #### L 100.0100, L300.8000, L501.9520, L505.5000, L500.2500 #### [facility] [address] [place], [address] CO2 [Moles/Vol] 24.8 mmol/L Normal 21.0-32.0 [facility] Comment on above: Performed By: #### L 100.0100, L300.8000, L501.9520, L505.5000, L500.2500 #### [facility] [address] [place], [address] Creatinine [Mass/Vol] 0.85 mg/dL Normal 0.70-1.20 [facility] Comment on above: Performed By: #### L 100.0100, L300.8000, L501.9520, L505.5000, L500.2500 #### [facility] [address] [place], [address] ECRCL 115.58 ml/min Normal 50-250 [facility] Comment on above: Performed By: #### L 100.0100, L300.8000, L501.9520, L505.5000, L500.2500 #### [facility] [address] [place], [address] GAP 11 Normal 5-15 [facility] Comment on above: Performed By: #### L 100.0100, L300.8000, L501.9520, L505.5000, L500.2500 #### [facility] [address] [place], [address] GFR/1.73 sq M.predicted among non-blacks MDRD (S/P/Bld) [Vol rate/Area] 122 mL/min/{1.73_m2} Normal >60 [facility] Comment on above: Result Comment: mL/m in/1.73m2 CKD-EPI Creatinine Equation (2020) Performed By: #### L 100.0100, L300.8000, L501.9520, L505.5000, L500.2500 #### [facility] [address] [place], [address] Globulin (S) [Mass/Vol] 2.6 g/dL Normal 2.2-4.2 [facility] Comment on above: Performed By: #### L 100.0100, L300.8000, L501.9520, L505.5000, L500.2500 #### [facility] [address] [place], [address] Glucose [Mass/Vol] 113 mg/dL High 70-99 [facility] Comment on above: Performed By: #### L 100.0100, L300.8000, L501.9520, L505.5000, L500.2500 #### [facility] [address] [place], [address] Potassium [Moles/Vol] 3.2 mmol/L Low 3.3-5.1 [facility] Comment on above: Performed By: #### L 100.0100, L300.8000, L501.9520, L505.5000, L500.2500 #### [facility] [address] [place], [address] Sodium [Moles/Vol] 138 mmol/L Normal 133-145 [facility] Comment on above: Performed By: #### L 100.0100, L300.8000, L501.9520, L505.5000, L500.2500 #### [facility] [address] [place], [address] T BILI < 0.15 Normal 0.00-1.30 [facility] Comment on above: Performed By: #### L 100.0100, L300.8000, L501.9520, L505.5000, L500.2500 #### [facility] [address] [place], [address] T PROT 6.1 g/dL Normal 5.9-8.4 [facility] Comment on above: Performed By: #### L 100.0100, L300.8000, L501.9520, L505.5000, L500.2500 #### [facility] [address] [place], [address] Urea nitrogen [Mass/Vol] 14 mg/dL Normal 4-19 [facility] Comment on above: Performed By: #### L 100.0100, L300.8000, L501.9520, L505.5000, L500.2500 #### [facility] [address] [place], [address] Emergency Department Summary on 11-11-2024 Emergency Department Summary [facility] Medical Records Department [address] [place] [address] Emergency Department Summary 11/11/24 MR#: [id number] Acct: [id number] Name: UNA COSBY Rep #: [id number] : 1995 29 From: Lourdes PITTMAN PCP: [...] fevers, chills, hematemesis, diarrhea, and urinary symptoms. [facility] Medical History Learning difficulty due to [...] afternoon a (more content not included)... Normal [facility] Eosinophil percentageOrdered By: Lourdes Mezt on 11-11-2024 Eosinophils/100 WBC (Bld) 0.8 % 0-5 [facility] Erythrocyte distribution wid th (RBC) [Ratio]Ordered By: Lourdes Metz on 11-11-2024 Erythrocyte distribution width (RBC) [Entitic vol] 42.0 fL 35.1-43.9 [facility] Erythrocyte distribution wid th ratioOrdered By: Lourdes Metz on 11-11-2024 Erythrocyte distribution width (RBC) [Ratio] 15.8 % High 11.6-14.6 [facility] Erythrocyte distribution wid th standard deviationOrdered By: Lourdes Metz on 11-11-2024 Erythrocyte distribution width (RBC) [Ratio] 42.0 fl 35.1-43.9 [facility] Erythrocyte morphology asses smentOrdered By: Lourdes Metz on 11-11-2024 RBC morphology finding Nom (Bld) NORM C+C NORMAL NORM C&C [facility] Estimation of creatinine riley aranceOrdered By: Lourdes Metz on 11-11-2024 Estimated Creatinine Clearance Calc 115.58 ml/min 50-250 [facility] GFR/1.73 sq M.predicted baldev g non-blacks MDRD (S/P/Bld) [Vol rate/Area]Ordered By: Lourdes Metz on 11-11-2024 Estimated GFR (MDRD) Non-Af Amer 122 >60 [facility] Comment on above: mL/min/1.73m2 CKD-EP I Creatinine Equation (2020) Glomerular filtration rate ( GFR) estimation/1.73 sq m using serum, plasma, or whole bOrdered By: Lourdes Metz on 11-11-2024 GFR/1.73 sq M.predicted among non-blacks MDRD (S/P/Bld) [Vol rate/Area] 122 mL/min/{1.73_m2} >60 [facility] Comment on above: mL/min/1.73m2 CKD-EP I Creatinine Equation (2020) Hematocrit Auto (Bld) [Volum e fraction]Ordered By: Lourdes Metz on 11-11-2024 Hematocrit (Bld) [Volume fraction] 39.7 % Low 40-54 [facility] Hemoglobin measurementOrdere d By: Lourdes Metz on 11-11-2024 Hemoglobin (Bld) [Mass/Vol] 12.5 g/dL Low 13.0-16.5 [facility] Immature granulocytes/100 WB C Auto (Bld)Ordered By: Lourdes Metz on 11-11-2024 Immature granulocytes/100 WBC (Bld) 0.400 % 0.0-0.9 [facility] Comment on above: IG% - Immature Granu locytes (promyelocytes, myelocytes and metamyelocytes) > 1% indicates that a LEFT SHIFT is Present. Laboratory - Chemistry and C hemistry - challengeOrdered By: Lourdes Metz on 11-11-2024 AST [Catalytic activity/Vol] 18 U/L <38 [facility] Lipaseon 11-11-2024 Lipase [Catalytic activity/Vol] 17 U/L Normal 13-75 [facility] Comment on above: Result Comment: Stella caro note: LIPASE revised reference range effective 22. New Lipase methodology. Expected to produce lower values than the previous assay method. NEW Reference Range: 13 - 75 U/L Performed By: #### L 100.0100, L300.8000, L501.9520, L505.5000, L500.2500 #### [facility] [address] [place], [address] Lipase measurementOrdered By : Lourdes Metz on 11-11-2024 Lipase [Catalytic activity/Vol] 17 U/L 13-75 [facility] Comment on above: Please note:LIPASE r evised reference range effective 22. New Lipase methodology. Expected to produce lower values than the previous assay method. NEW Reference Range: 13 - 75 U/L Lymphocytes Auto (Unsp spec) [#/Vol]Ordered By: Lourdes Metz on 11-11-2024 Lymphocytes (Bld) [#/Vol] 2.97 10*3/uL 0.83-4.51 [facility] Lymphocytes/100 WBC Auto (Un sp spec)Ordered By: Lourdes Metz on 11-11-2024 Lymphocytes/100 WBC (Bld) 17.9 % Low 19-41 [facility] MCV (mean corpuscular volume ) determinationOrdered By: Lourdes Metz on 11-11-2024 MCV (RBC) [Entitic vol] 75.0 fL Low 80-94 [facility] Manual differential comment Gigi (Bld) [Interp]Ordered By: Lourdes Metz on 11-11-2024 Differential Comment SCANNED [facility] Mean corpuscular hemoglobin (MCH) determinationOrdered By: Lourdes Metz on 11-11-2024 MCH (RBC) [Entitic mass] 23.6 pg Low 27.0-32.0 [facility] Mean corpuscular hemoglobin concentration (MCHC) determinationOrdered By: Lourdes Metz on 11-11-2024 MCHC (RBC) [Mass/Vol] 31.5 g/dL Low 32-36 [facility] Mean platelet volume determi nationOrdered By: Lourdes Metz on 11-11-2024 Platelet mean volume (Bld) [Entitic vol] 10.6 fL 6.2-12.0 [facility] Monocyte percentageOrdered B y: Lourdes Metz on 11-11-2024 Monocytes/100 WBC (Bld) 9.5 % 0-10 [facility] Neutrophil percentageOrdered By: Lourdes Metz on 11-11-2024 Neutrophils/100 WBC (Bld) 71.2 % High 47-70 [facility] No Panel InformationOrdered By: Steven Donaldson on 11-11-2024 Blood Gas Sample Site Not entered [facility] Blood Gas Specimen Type JAIDEN [facility] Oxygen Delivery Device Room Air [facility] Nucleated red blood cell per centageOrdered By: Lourdes Metz on 11-11-2024 Nucleated RBC/100 WBC (Bld) [Ratio] 0 % 0-5 [facility] Oxygen (BldV) [Partial press ure]Ordered By: Steven Donaldson on 11-11-2024 Venous Blood Partial Pressure O2 40 mmHg 25-40 [facility] Pathologist review Gigi (Unsp spec) [Interp]Ordered By: Lourdes Metz on 11-11-2024 Differential Pathologist's Review [facility] [place] Platelet countOrdered By: Malena Metz on 11-11-2024 Platelets (Bld) [#/Vol] 314 10*3/uL 150-450 [facility] Platelet estimateOrdered By: Lourdes Metz on 11-11-2024 Platelets LM Ql (Bld) ADEQUATE ADEQ [facility] Platelet morphologyOrdered B y: Lourdes Metz on 11-11-2024 Platelet morphology finding Nom (Bld) [facility] Platelet morphology finding Nom (Bld)Ordered By: Lourdes Metz on 11-11-2024 Platelet Morphology Comment LARGE [facility] Platelets LM Ql (Bld)Ordered By: Lourdes Metz on 11-11-2024 Platelet Estimate [facility] Potassium (Unsp spec) [Mass/ Vol]Ordered By: Lourdes Metz on 11-11-2024 Potassium [Moles/Vol] 3.2 mmol/L Low 3.3-5.1 [facility] Potassium measurement (mass/ volume)Ordered By: Lourdes Metz on 11-11-2024 Potassium (Unsp spec) [Mass/Vol] 3.2 mmol/L Low 3.3-5.1 [facility] RBC Auto (Bld) [#/Vol]Ordere d By: Lourdes Metz on 11-11-2024 RBC (Bld) [#/Vol] 5.29 10*6/uL 4.6-6.2 [facility] RBC morphology finding Nom ( Bld)Ordered By: Lourdes Metz on 11-11-2024 Red Blood Cell Morphology NORM C+C NORMAL NORM C&C [facility] Review by pathologistOrdered By: Lourdes Metz on 11-11-2024 Pathologist review Gigi (Unsp spec) [Interp] Reviewed [facility] Comment on above: Previous reported re sult: Louisa wiseman Edited by: ANAYELI on 11/23/24:1409SEE REPORT IN PATIENT'S EMR AMENDED REPORT 11/23/24 1409 PATH REV previously reported as: Louisa wiseman Serum creatinine measurement (mass/volume)Ordered By: Lourdes Metz on 11-11-2024 Creatinine [Mass/Vol] 0.85 mg/dL 0.70-1.20 [facility] Serum globulin measurementOr dered By: Lourdes Metz on 11-11-2024 Globulin (S) [Mass/Vol] 2.6 g/dL 2.2-4.2 [facility] Serum glucose measurement (m ass/volume)Ordered By: Lourdes Metz on 11-11-2024 Glucose [Mass/Vol] 113 mg/dL High 70-99 [facility] Serum or plasma alanine oviedo otransferase (ALT) measurementOrdered By: Lourdes Metz on 11-11-2024 ALT [Catalytic activity/Vol] 20 U/L <47 [facility] Serum or plasma albumin koby urement (mass/volume)Ordered By: Lourdes Metz on 11-11-2024 Albumin [Mass/Vol] 3.6 g/dL 3.5-5.0 [facility] Serum or plasma albumin/glob ulin mass ratioOrdered By: Lourdes Metz on 11-11-2024 Albumin/Globulin [Mass ratio] 1.4 {ratio} 0.9-2.4 [facility] Serum or plasma alkaline lopez sphatase measurementOrdered By: Lourdes Metz on 11-11-2024 ALP [Catalytic activity/Vol] 123 U/L 40-129 [facility] Serum or plasma calcium koby urement (mass/volume)Ordered By: Lourdes Metz on 11-11-2024 Calcium [Mass/Vol] 8.3 mg/dL 7.6-11.0 [facility] Serum or plasma urea nitroge n measurement (mass/volume)Ordered By: Lourdes Metz on 11-11-2024 Urea nitrogen [Mass/Vol] 14 mg/dL 4-19 [facility] Sodium levelOrdered By: Wesly Metz on 11-11-2024 Sodium [Moles/Vol] 138 mmol/L 133-145 [facility] Total proteinOrdered By: Graham Metz on 11-11-2024 Protein [Mass/Vol] 6.1 g/dL 5.9-8.4 [facility] Venous Blood Gason Blood Gas Type JAIDEN Normal [facility] Comment on above: Performed By: #### L 100.0100, L300.8000, L501.9520, L505.5000, L500.2500 #### [facility] [address] [place], [address] CO2 [Moles/Vol] 28 mmol/L Normal 23-33 [facility] Comment on above: Performed By: #### L 100.0100, L300.8000, L501.9520, L505.5000, L500.2500 #### [facility] [address] [place], [address] HCO3 (Bld) [Moles/Vol] 27 mmol/L High 22-26 [facility] Comment on above: Performed By: #### L 100.0100, L300.8000, L501.9520, L505.5000, L500.2500 #### [facility] [address] [place], [address] O2 Delivery Dev Room Air Normal [facility] Comment on above: Performed By: #### L 100.0100, L300.8000, L501.9520, L505.5000, L500.2500 #### [facility] [address] [place], [address] SITE Not entered Normal [facility] Comment on above: Performed By: #### L 100.0100, L300.8000, L501.9520, L505.5000, L500.2500 #### [facility] [address] [place], [address] VBG BE 2 mmol/L Normal -1.0-3.5 [facility] Comment on above: Performed By: #### L 100.0100, L300.8000, L501.9520, L505.5000, L500.2500 #### [facility] [address] [place], [address] VBG pCO2 39.6 mmHg Low 41-51 [facility] Comment on above: Performed By: #### L 100.0100, L300.8000, L501.9520, L505.5000, L500.2500 #### [facility] [address] [place], [address] VBG pH 7.44 High 7.32-7.42 [facility] Comment on above: Performed By: #### L 100.0100, L300.8000, L501.9520, L505.5000, L500.2500 #### [facility] [address] [place], [address] VBG PO2 40 mmHg Normal 25-40 [facility] Comment on above: Performed By: #### L 100.0100, L300.8000, L501.9520, L505.5000, L500.2500 #### [facility] [address] [place], [address] VBG SO2 76 High 50-70 [facility] Comment on above: Performed By: #### L 100.0100, L300.8000, L501.9520, L505.5000, L500.2500 #### [facility] [address] [place], [address] Venous blood base excess yaya surementOrdered By: Steven Donaldson on 11-11-2024 Base excess Calc (BldV) [Moles/Vol] 2 mmol/L -1.0-3.5 [facility] Venous blood bicarbonate yaya surementOrdered By: Steven Donaldson on 11-11-2024 HCO3 (Bld) [Moles/Vol] 27 mmol/L High 22-26 [facility] Venous blood oxygen saturati on measurementOrdered By: Steven Donaldson on 11-11-2024 Oxygen saturation in Blood 76 % High 50-70 [facility] Venous blood pH measurementO rdered By: Steven Donaldson on 11-11-2024 pH (BldV) 7.44 [pH] High 7.32-7.42 [facility] Venous blood partial pressur e of carbon dioxide measurementOrdered By: Steven Donaldson on 11-11-2024 CO2 (BldV) [Partial pressure] 39.6 mm[Hg] Low 41-51 [facility] Venous blood partial pressur e of oxygen measurementOrdered By: Steven Lowery on 11-11-2024 Oxygen (BldV) [Partial pressure] 40 mm[Hg] 25-40 [facility] White blood cell (WBC) count Ordered By: Lourdes Metz on 11-11-2024 WBC (Bld) [#/Vol] 16.6 10*3/uL High 4.4-11.0 [facility] pH (BldV)Ordered By: Steven Rasmussen on 11-11-2024 Venous Blood pH 7.44 High 7.32-7.42 [facility] 12 Lead EKGon 10-19-2024 12 Lead EKG [facility] [address] [place] [address] 12 Lead EKG 10/19/24 0029 MR#: [id number] Acct: [id number] Name: UNA COSBY Rep #: [id number] : 1995 29 From: Taylor Man MD [...] ECG Confirmed by MEGAN MIRELES, NIKKI ([id number]), communications editor COREY MICHAEL ([id number]) on 10/23/2024 10:53:38 AM Referred By: Confirmed By: NIKKI MAN MD 10/23/24 1053 Date Taylor Man MD CC: Dr. Keisha Handy, ; No Primary Care Physician Signed Normal [facility] Absolute lymphocyte countOrd ered By: Keisha Handy on 10-19-2024 Lymphocytes Auto (Unsp spec) [#/Vol] 3.70 10*3/uL 0.83-4.51 [facility] Absolute neutrophil countOrd ered By: Keisha Handy on 10-19-2024 Neutrophils (Bld) [#/Vol] 8.5 10*3/uL High 2.0-7.7 [facility] Anion gap in Serum or Plasma Ordered By: Keisha Handy on 10-19-2024 Anion gap [Moles/Vol] 17 mmol/L High 5-15 [facility] Comment on above: Previous reported re sult: 14 Edited by: AUTOINSandra on 10/19/24:0209 AMENDED REPORT 10/19/24 0209 GAP previously reported as: 14 Automated lymphocyte count a s percentage of total leukocytesOrdered By: Keisha Handy on 10-19-2024 Lymphocytes/100 WBC Auto (Unsp spec) 27.7 % 19-41 [facility] BUN/creatinine ratioOrdered By: Keisha Handy on 10-19-2024 Urea nitrogen/Creatinine [Mass ratio] 26.8 mg/mg High 10-20 [facility] Comment on above: Previous reported re sult: 25.4 RATIOEdited by: LUCERO on 10/19/24:0209 AMENDED REPORT 10/19/24208 BUN/CRE previously reported as: 25.4 H RATIO Base excess Calc (BldV) [Mol es/Vol]Ordered By: Keisha Handy on 10-19-2024 Venous Blood Base Excess -2 mmol/L Low -1.0-3.5 [facility] Basic Metabolic Profile (BMP )on 10-19-2024 Calcium [Mass/Vol] 8.9 mg/dL Normal 7.6-11.0 [facility] Comment on above: Performed By: #### L 100.0100, L501.4021, L500.2500 ####[facility] [address] [address] [place], [place], [address] GFR/1.73 sq M.predicted among non-blacks MDRD (S/P/Bld) [Vol rate/Area] 134 mL/min/{1.73_m2} Normal >60 [facility] Comment on above: Result Comment: mL/m in/1.73m2 CKD-EPI Creatinine Equation (2020) Performed By: #### L 100.0100, L501.4021, L500.2500 ####[facility] [address] [facility] [place], [place], [address] Basophil percentageOrdered B y: Keisha Handy on 10-19-2024 Basophils/100 WBC (Bld) 0.7 % 0-1 [facility] Bedside Glucoseon 10-19-2024 FINGERSTICK GLU 312 mg/dL High 74-106 [facility] Comment on above: Result Comment: TEJAL SIGRID OF PATIENT CARE PER NURSING PROTOCOL Performed By: #### L 100.0100, L300.8000, L501.9520, L505.5000, L500.2500 #### [facility] [address] [place], [address] Bilirubin Test strip Ql (U)O rdered By: Keisha Handy on 10-19-2024 Bilirubin Ql (U) Negative Negative [facility] CBC W/Diff, Automatedon 10-07 Absolute Lymph 3.70 X10 3/uL Normal 0.83-4.51 [facility] Comment on above: Performed By: #### L 100.0100, L501.4021, L500.2500 ####[facility] [address] [place], [address] Absolute Neut 8.5 X10 3/uL High 2.0-7.7 [facility] Comment on above: Performed By: #### L 100.0100, L501.4021, L500.2500 ####[facility] [address] [place], [address] Basophils/100 WBC (Bld) 0.7 % Normal 0-1 [facility] Comment on above: Performed By: #### L 100.0100, L501.4021, L500.2500 ####[facility] [address] [place], [address] Eosinophils/100 WBC (Bld) 1.5 % Normal 0-5 [facility] Comment on above: Performed By: #### L 100.0100, L501.4021, L500.2500 ####[facility] [address] [place], [address] Erythrocyte distribution width (RBC) [Ratio] 16.5 % High 11.6-14.6 [facility] Comment on above: Performed By: #### L 100.0100, L501.4021, L500.2500 ####[facility] [address] [place], [address] Hematocrit (Bld) [Volume fraction] 43.5 % Normal 40-54 [facility] Comment on above: Performed By: #### L 100.0100, L501.4021, L500.2500 ####[facility] [address] [place], [address] Hemoglobin (Bld) [Mass/Vol] 13.4 g/dL Normal 13.0-16.5 [facility] Comment on above: Performed By: #### L 100.0100, L501.4021, L500.2500 ####[facility] [address] [place], [address] IG% 0.400 Normal 0.0-0.9 [facility] Comment on above: Result Comment: IG% - Immature Granulocytes (promyelocytes, myelocytes and metamyelocytes) > 1% indicates that a LEFT SHIFT is Present. Performed By: #### L 100.0100, L501.4021, L500.2500 ####[facility] [address] [place], [address] Lymphocytes/100 WBC (Bld) 27.7 % Normal 19-41 [facility] Comment on above: Performed By: #### L 100.0100, L501.4021, L500.2500 ####[facility] [address] [place], [address] MCH (RBC) [Entitic mass] 23.2 pg Low 27.0-32.0 [facility] Comment on above: Performed By: #### L 100.0100, L501.4021, L500.2500 ####[facility] [address] [place], [address] MCHC (RBC) [Mass/Vol] 30.8 g/dL Low 32-36 [facility] Comment on above: Performed By: #### L 100.0100, L501.4021, L500.2500 ####[facility] [address] [place], [address] MCV (RBC) [Entitic vol] 75.3 fL Low 80-94 [facility] Comment on above: Performed By: #### L 100.0100, L501.4021, L500.2500 ####[facility] [address] [place], [address] Monocytes/100 WBC (Bld) 6.2 % Normal 0-10 [facility] Comment on above: Performed By: #### L 100.0100, L501.4021, L500.2500 ####[facility] [address] [place], [address] Neutrophils/100 WBC (Bld) 63.5 % Normal 47-70 [facility] Comment on above: Performed By: #### L 100.0100, L501.4021, L500.2500 ####[facility] [address] [place], [address] Nucleated RBC (Bld) [#/Vol] 0 10*3/uL Normal 0-5 [facility] Comment on above: Performed By: #### L 100.0100, L501.4021, L500.2500 ####[facility] [address] [place], [address] Platelet mean volume (Bld) [Entitic vol] 10.3 fL Normal 6.2-12.0 [facility] Comment on above: Performed By: #### L 100.0100, L501.4021, L500.2500 ####[facility] [address] [place], [address] Platelets (Bld) [#/Vol] 346 10*3/uL Normal 150-450 [facility] Comment on above: Performed By: #### L 100.0100, L501.4021, L500.2500 ####[facility] [address] [place], [address] RBC (Bld) [#/Vol] 5.78 10*6/uL Normal 4.6-6.2 [facility] Comment on above: Performed By: #### L 100.0100, L501.4021, L500.2500 ####[facility] [address] [place], [address] RDW SD 43.9 fl Normal 35.1-43.9 [facility] Comment on above: Performed By: #### L 100.0100, L501.4021, L500.2500 ####[facility] [address] [place], [address] WBC (Bld) [#/Vol] 13.4 10*3/uL High 4.4-11.0 [facility] Comment on above: Performed By: #### L 100.0100, L501.4021, L500.2500 ####[facility] [address] [place], [address] CO2 (BldV) [Moles/Vol]Ordere d By: Keisha Handy on 10-19-2024 CO2 [Moles/Vol] 25 mmol/L 23-33 [facility] CO2 (BldV) [Partial pressure ]Ordered By: Keisha Handy on 10-19-2024 Bed Mix Venous Bld PCO2 at Pat Temp 41.4 mmHg 41-51 [facility] Carbon dioxide, total [Moles /volume] in Central venous bloodOrdered By: Keisha Handy on 10-19-2024 CO2 [Moles/Vol] 20.5 mmol/L Low 21.0-32.0 [facility] Comment on above: Previous reported re sult: 22.7 mmol/LEdited by: AUTOINS on 10/19/24:0209 AMENDED REPORT 10/19/24 0209 CO2 previously reported as: 22.7 mmol/L Chest PA and Lateralon 10-19 Chest PA and Lateral [facility] [address] [place] [address] Chest PA and Lateral MR#: [id number] Acct: [id number] Name: ALEAUNA JUAN Rep #: [id number] : 1995 M 29 From: Tirso Massey MD PCP: Dr. Deangelo Noel MD Status: PRE ER Study: Chest PA and Lateral Date of Exam: 10/19/24 Exam# [id number] Ordering Dr: Keisha Handy DO PROCEDURE: CHEST PA AND LATERAL REASON FOR EXAM: CHEST PAIN TECHNIQUE: PA and lateral views of the chest. COMPARISON: 02/15/2023 FINDINGS: The lungs are clear. The cardiac and mediastinal contours are within limits. The visualized osseous structures appear within limits. RAD/Chest PA and Lateral IMPRESSION: No evidence of acute disease. Reading Location: [facility] CC: Dr. Keisha Handy DO; Dr. Deangelo Noel MD Client Development Consultant: Signed Normal [facility] Chloride assayOrdered By: Javier Handy on 10-19-2024 Chloride [Moles/Vol] 92 mmol/L Low 98-108 [facility] Comment on above: Previous reported re sult: 93 mmol/LEdited by: AUTOINS on 10/19/24:0209 AMENDED REPORT 10/19/24 0209 CL previously reported as: 93 L mmol/L D-Dimer Quantitative (DVT/PE )on 10-19-2024 D-DIMER QUANT 0.28 FEU/ug/m Normal 0.27-0.49 [facility] Comment on above: Result Comment: NORM AL D-Dimer level (<0.50) indicates no DVT or PE. Performed By: #### L 100.0100, L300.8000, L501.9520, L505.5000, L500.2500 #### [facility] [place], [address] D-dimer measurement for deep venous thrombosisOrdered By: Keisha Handy on 10-19-2024 D-Dimer Quantitative (PE/DVT) 0.28 FEU/ug/m 0.27-0.49 [facility] Comment on above: NORMAL D-Dimer level (<0.50) indicates no DVT or PE. Emergency Department Summary on 10-19-2024 Emergency Department Summary [facility] Medical Records Department [address] [place] [address] Emergency Department Summary 10/19/24 MR#: [id number] Acct: [id number] Name: UNA COSBY Rep #: [id number] : 1995 29 From: Keisha Handy DO [...] complaints or concerns reported at this time. [facility] Medical History Learning difficulty due to [...] NAD HEEN (more content not included)... Normal [facility] Eosinophil percentageOrdered By: Keisha Handy on 10-19-2024 Eosinophils/100 WBC (Bld) 1.5 % 0-5 [facility] Epithelial cells.squamous LM Ql (Urine sed)Ordered By: Keisha Handy on 10-19-2024 Epithelial cells.squamous LM.HPF (Urine sed) [#/Area] 0 /[HPF] 0-5 [facility] Erythrocyte distribution wid th ratioOrdered By: Keisha Handy on 10-19-2024 Erythrocyte distribution width (RBC) [Ratio] 16.5 % High 11.6-14.6 [facility] Erythrocyte distribution wid th standard deviationOrdered By: Keisha Handy on 10-19-2024 Erythrocyte distribution width (RBC) [Entitic vol] 43.9 fL 35.1-43.9 [facility] Erythrocyte distribution width (RBC) [Ratio] 43.9 fl 35.1-43.9 [facility] Estimation of creatinine riley aranceOrdered By: Keisha Handy on 10-19-2024 Estimated Creatinine Clearance Calc 163.42 ml/min 50-250 [facility] GFR/1.73 sq M.predicted baldev g non-blacks MDRD (S/P/Bld) [Vol rate/Area]Ordered By: Keisha Handy on 10-19-2024 Estimated GFR (MDRD) Non-Af Amer 134 >60 [facility] Comment on above: mL/min/1.73m2 CKD-EP I Creatinine Equation (2020) Glomerular filtration rate ( GFR) estimation/1.73 sq m using serum, plasma, or whole bOrdered By: Keisha Handy on 10-19-2024 GFR/1.73 sq M.predicted among non-blacks MDRD (S/P/Bld) [Vol rate/Area] 134 mL/min/{1.73_m2} >60 [facility] Comment on above: mL/min/1.73m2 CKD-EP I Creatinine Equation (2020) Glucose Ql (U)Ordered By: Javier Handy on 10-19-2024 Glucose (U) [Mass/Vol] 1000 mg/dL High Normal [facility] Gl[facility] measurement at [facility] deOrdered By: Keisha Handy on 10-19-2024 Bedside Glucose (Misc Panel) 312 mg/dL High 74-106 [facility] Comment on above: MANAGEMENT OF PATIEN T CARE PER NURSING PROTOCOL Glucose [Mass/Vol] 312 mg/dL High 74-106 [facility] Comment on above: MANAGEMENT OF PATIEN T CARE PER NURSING PROTOCOL Hematocrit Auto (Bld) [Volum e fraction]Ordered By: Keisha Handy on 10-19-2024 Hematocrit (Bld) [Volume fraction] 43.5 % 40-54 [facility] Hemoglobin measurementOrdere d By: Keisha Handy on 10-19-2024 Hemoglobin (Bld) [Mass/Vol] 13.4 g/dL 13.0-16.5 [facility] Immature granulocytes/100 WB C Auto (Bld)Ordered By: Keisha Handy on 10-19-2024 Immature granulocytes/100 WBC (Bld) 0.400 % 0.0-0.9 [facility] Comment on above: IG% - Immature Granu locytes (promyelocytes, myelocytes and metamyelocytes) > 1% indicates that a LEFT SHIFT is Present. Ketones Test strip Ql (U)Ord ered By: Keisha Handy on 10-19-2024 Ketones Ql (U) 15 mg/dl High Negative [facility] L499.0042on 10-19-2024 Trop T High Sen 9 ng/L Normal <=22 [facility] Comment on above: Performed By: #### L 100.0100, L300.8000, L501.9520, L505.5000, L500.2500 #### [facility] [address] [place], [address] L501.4021on 10-19-2024 Trop T High Sen 8 ng/L Normal <=22 [facility] Comment on above: Result Comment: AMENDED REPORT 10/19/24 0201 Trop T High Sen previously reported as: 7 ng/L Performed By: #### L 100.0100, L501.4021, L500.2500 ####[facility] [address] [place], [address] L501.6901on 10-19-2024 BETA-HYDROXYBUT 0.6 mmol/L Normal 0.0-0.3 [facility] Comment on above: Performed By: #### L 100.0100, L300.8000, L501.9520, L505.5000, L500.2500 #### [facility] [address] [place], [address] Lymphocytes Auto (Unsp spec) [#/Vol]Ordered By: Keisha Handy on 10-19-2024 Lymphocytes (Bld) [#/Vol] 3.70 10*3/uL 0.83-4.51 [facility] Lymphocytes/100 WBC Auto (Un sp spec)Ordered By: Keisha Handy on 10-19-2024 Lymphocytes/100 WBC (Bld) 27.7 % 19-41 [facility] MCV (mean corpuscular volume ) determinationOrdered By: Keisha Handy on 10-19-2024 MCV (RBC) [Entitic vol] 75.3 fL Low 80-94 [facility] Mean corpuscular hemoglobin (MCH) determinationOrdered By: Keisha Handy on 10-19-2024 MCH (RBC) [Entitic mass] 23.2 pg Low 27.0-32.0 [facility] Mean corpuscular hemoglobin concentration (MCHC) determinationOrdered By: Keisha Handy on 10-19-2024 MCHC (RBC) [Mass/Vol] 30.8 g/dL Low 32-36 [facility] Mean platelet volume determi nationOrdered By: Keisha Handy on 10-19-2024 Platelet mean volume (Bld) [Entitic vol] 10.3 fL 6.2-12.0 [facility] Microscopic analysis of urin e for red blood cells (RBC)Ordered By: Keisha Handy on 10-19-2024 Microscopic analysis of urine for red blood cells (RBC) 0-5 SEEN /hpf 0-5 [facility] Urine RBC 0-5 SEEN /hpf 0-5 [facility] Monocyte percentageOrdered B y: Keisha Handy on 10-19-2024 Monocytes/100 WBC (Bld) 6.2 % 0-10 [facility] Mucus LM Ql (Urine sed)Order ed By: Keisha Handy on 10-19-2024 Mucus Ql (Urine sed) 0 SEEN /hpf [facility] Neutrophil percentageOrdered By: Keisha Handy on 10-19-2024 Neutrophils/100 WBC (Bld) 63.5 % 47-70 [facility] Nitrite Test strip Ql (U)Ord ered By: Keisha Handy on 10-19-2024 Nitrite Ql (U) Negative Negative [facility] No Panel InformationOrdered By: Keisha Handy on 10-19-2024 Blood Gas Sample Site Not entered [facility] Blood Gas Specimen Type JAIDEN [facility] Oxygen Delivery Device Room Air [facility] Beta-Hydroxybutyric Acid mmol/L 0.6 mmol/L 0.0-0.3 [facility] Troponin T High Sensitivity 8 ng/L <22 [facility] Comment on above: Previous reported re sult: 7 ng/LEdited by: LUCERO on 10/19/24:0201 AMENDED REPORT 10/19/24 0201 Trop T High Sen previously reported as: 7 ng/L Nucleated red blood cell per centageOrdered By: Keisha Handy on 10-19-2024 Nucleated RBC/100 WBC (Bld) [Ratio] 0 % 0-5 [facility] Oxygen (BldV) [Partial press ure]Ordered By: Keisha Handy on 10-19-2024 Venous Blood Partial Pressure O2 32 mmHg 25-40 [facility] Platelet countOrdered By: Javier Handy on 10-19-2024 Platelets (Bld) [#/Vol] 346 10*3/uL 150-450 [facility] Potassium (Unsp spec) [Mass/ Vol]Ordered By: Keisha Handy on 10-19-2024 Potassium [Moles/Vol] 4.1 mmol/L 3.3-5.1 [facility] Potassium measurement (mass/ volume)Ordered By: Keisha Handy on 10-19-2024 Potassium (Unsp spec) [Mass/Vol] 4.1 mmol/L 3.3-5.1 [facility] Protein Test strip Ql (U)Ord ered By: Keisha Handy on 10-19-2024 Protein Ql (U) 100 mg/dl High Negative [facility] RBC Auto (Bld) [#/Vol]Ordere d By: Keisha Handy on 10-19-2024 RBC (Bld) [#/Vol] 5.78 10*6/uL 4.6-6.2 [facility] Serum creatinine measurement (mass/volume)Ordered By: Keisha Handy on 10-19-2024 Creatinine [Mass/Vol] 0.63 mg/dL Low 0.70-1.20 [facility] Serum glucose measurement (m ass/volume)Ordered By: Keisha Handy on 10-19-2024 Glucose [Mass/Vol] 458 mg/dL High 70-99 [facility] Comment on above: Critical Result(s) C alled at:0208 by: SERAFIN BELL TO RN SHUFF2 Results read back by same.Previous reported result: 457 mg/dLEdited by: LUCERO on 10/19/24:0209 AMENDED REPORT 10/19/24 0209 GLU previously reported as: 457 *H mg/dL Serum or plasma calcium koby urement (mass/volume)Ordered By: Keisha Handy on 10-19-2024 Calcium [Mass/Vol] 8.9 mg/dL 7.6-11.0 [facility] Serum or plasma urea nitroge n measurement (mass/volume)Ordered By: Keisha Handy on 10-19-2024 Urea nitrogen [Mass/Vol] 17 mg/dL 4-19 [facility] Comment on above: Previous reported re sult: 16 mg/dLEdited by: LUCERO on 10/19/24:0209 AMENDED REPORT 10/19/24208 BUN previously reported as: 16 mg/dL Sodium levelOrdered By: Roger Handy on 10-19-2024 Sodium [Moles/Vol] 129 mmol/L Low 133-145 [facility] Comment on above: Previous reported re sult: 130 mmol/LEdited by: LUCERO on 10/19/24:0209 AMENDED REPORT 10/19/24208 NA previously reported as: 130 L mmol/L Squamous epithelial cells de tection in urine sediment by light microscopyOrdered By: Keisha Handy on 10-19-2024 Epithelial cells.squamous LM Ql (Urine sed) 0-5 SEEN /hpf 0-5 [facility] Troponin T.cardiac High sens itivity method [Mass/Vol]Ordered By: Keisha Handy on 10-19-2024 Troponin T High Sensitivity 2 Hour 9 ng/L <22 [facility] Troponin T.cardiac [Mass/vol ume] in Serum or Plasma by High sensitivity methodOrdered By: Keisha Handy on 10-19-2024 Troponin T.cardiac High sensitivity method [Mass/Vol] 9 ng/L <22 [facility] Urinalysis, Completeon 10-19 BACTERIA 1+ /hpf Normal None Seen [facility] Comment on above: Order Comment: MANN CTOR TO SPECIFY Performed By: #### L 100.0100, L300.8000, L501.9520, L505.5000, L500.2500 #### [facility] [address] [place], [place], [address] EPI,SQUAMOUS 0-5 SEEN Normal 0-5 [facility] Comment on above: Order Comment: MANN CTOR TO SPECIFY Performed By: #### L 100.0100, L300.8000, L501.9520, L505.5000, L500.2500 #### [facility] [address] [place], [address] RBC 0-5 SEEN Normal 0-5 [facility] Comment on above: Order Comment: MANN CTOR TO SPECIFY Performed By: #### L 100.0100, L300.8000, L501.9520, L505.5000, L500.2500 #### [facility] [address] [place], [address] Mucus Ql (Urine sed) 0 SEEN Normal [facility] Comment on above: Order Comment: MANN CTOR TO SPECIFY Performed By: #### L 100.0100, L300.8000, L501.9520, L505.5000, L500.2500 #### [facility] [address] [place], [address] WBC 0 SEEN Normal 0-5 [facility] Comment on above: Order Comment: MANN CTOR TO SPECIFY Performed By: #### L 100.0100, L300.8000, L501.9520, L505.5000, L500.2500 #### [facility] [address] [place], [address] Urine blood detectionOrdered By: Keisha Handy on 10-19-2024 Urine Occult Blood 25 /ul High Negative [facility] Urine clarityOrdered By: Soraida Handy on 10-19-2024 Clarity (U) Clear Clear [facility] Urine color determinationOrd ered By: Keisha Handy on 10-19-2024 Color (U) Yellow Yellow [facility] Urine glucose detectionOrder ed By: Keisha Handy on 10-19-2024 Glucose Ql (U) 1000 mg/dl High Normal [facility] Urine leukocyte esterase det ection by dipstickOrdered By: Keisha Handy on 10-19-2024 Leukocyte esterase Test strip Ql (U) Negative Negative [facility] Urine pHOrdered By: Keisha santiago on 10-19-2024 pH (U) 6.0 [pH] 5.0 - 8.0 [facility] Urine sediment bacteria coun t by microscopy (number/high power field)Ordered By: Keisha Handy on 10-19-2024 Bacteria LM.HPF (Urine sed) [#/Area] 1 /[HPF] None Seen [facility] Urine specific gravity measu rementOrdered By: Keisha Handy on 10-19-2024 Specific gravity (U) [Rel density] 1.010 1.002-1.03 0 [facility] Urine urobilinogen measureme ntOrdered By: Keisha Handy on 10-19-2024 Urobilinogen Ql (U) Normal mg/dl Normal [facility] Urobilinogen Ql (U)Ordered B y: Keisha Handy on 10-19-2024 Urine Urobilinogen Normal mg/dl Normal [facility] Venous Blood Gason Blood Gas Type JAIDEN Normal [facility] Comment on above: Performed By: #### L 9000.0810 ####[facility] [address] [place], [address] CO2 [Moles/Vol] 25 mmol/L Normal 23-33 [facility] Comment on above: Performed By: #### L 9000.0810 ####[facility] [address] [place], [address] HCO3 (Bld) [Moles/Vol] 23 mmol/L Normal 22-26 [facility] Comment on above: Performed By: #### L 9000.0810 ####[facility] [address] [place], [address] O2 Delivery Dev Room Air Normal [facility] Comment on above: Performed By: #### L 9000.0810 ####[facility] [address] [place], [address] SITE Not entered Normal [facility] Comment on above: Performed By: #### L 9000.0810 ####[facility] [address] [place], [address] VBG BE -2 mmol/L Low -1.0-3.5 [facility] Comment on above: Performed By: #### L 9000.0810 ####[facility] [address] [place], [place], [address] VBG pCO2 41.4 mmHg Normal 41-51 [facility] Comment on above: Performed By: #### L 9000.0810 ####[facility] [address] [place], [place], [address] VBG pH 7.36 Normal 7.32-7.42 [facility] Comment on above: Performed By: #### L 9000.0810 ####[facility] [address] [place], [address] VBG PO2 32 mmHg Normal 25-40 [facility] Comment on above: Performed By: #### L 9000.0810 ####[facility] [address] [place], [place], [address] VBG SO2 59 Normal 50-70 [facility] Comment on above: Performed By: #### L 9000.0810 ####[facility] [address] [place], [place], [address] Venous blood base excess yaay surementOrdered By: Keisha Handy on 10-19-2024 Base excess Calc (BldV) [Moles/Vol] -2 mmol/L Low -1.0-3.5 [facility] Venous blood bicarbonate yaya surementOrdered By: Keisha Handy on 10-19-2024 HCO3 (Bld) [Moles/Vol] 23 mmol/L 22-26 [facility] Venous blood oxygen saturati on measurementOrdered By: Keisha Handy on 10-19-2024 Oxygen saturation in Blood 59 % 50-70 [facility] Venous blood pH measurementO rdered By: Keisha Handy on 10-19-2024 pH (BldV) 7.36 [pH] 7.32-7.42 [facility] Venous blood partial pressur e of carbon dioxide measurementOrdered By: Keisha Handy on 10-19-2024 CO2 (BldV) [Partial pressure] 41.4 mm[Hg] 41-51 [facility] Venous blood partial pressur e of oxygen measurementOrdered By: Keisha Handy on 10-19-2024 Oxygen (BldV) [Partial pressure] 32 mm[Hg] 25-40 [facility] White blood cell (WBC) count Ordered By: Keisha Handy on 10-19-2024 WBC (Bld) [#/Vol] 13.4 10*3/uL High 4.4-11.0 [facility] White blood cell countOrdere d By: Keisha Handy on 10-19-2024 Urine WBC 0 SEEN /hpf 0-5 [facility] White blood cell count 0 SEEN /hpf 0-5 [facility] pH (BldV)Ordered By: Keisha Handy on 10-19-2024 Venous Blood pH 7.36 7.32-7.42 [facility] CBC W Auto Differential pane l (Bld)on 10-10-2024 Basophils (Bld) [#/Vol] 0.06 10*3/uL Normal <0.11 [facility] Comment on above: Order Comment: Speci men Type: BLOOD SPECIMEN Ordering Facility: [facility] Address: [address] [place] [address] Performed By: #### 5 7021-8 #### [facility] CLIA [id number] [address] [place] [address] [place] Basophils/100 WBC (Bld) 0.5 % Normal C [facility] Comment on above: Order Comment: Speci men Type: BLOOD SPECIMEN Ordering Facility: [facility] Address: [address] [place] [address] Performed By: #### 5 7021-8 #### [facility] CLIA [id number] [address] [place] [address] [place] Differential cell count method Nom (Bld) Auto Normal [facility] Comment on above: Order Comment: Speci men Type: BLOOD SPECIMEN Ordering Facility: [facility] Address: [address] [place] [address] Performed By: #### 5 7021-8 #### [facility] CLIA [id number] [address] [place] [address] [place] Eosinophils (Bld) [#/Vol] 0.20 10*3/uL Normal <0.46 [facility] Comment on above: Order Comment: Speci men Type: BLOOD SPECIMEN Ordering Facility: [facility] Address: [address] [place] [address] Performed By: #### 5 7021-8 #### [facility] CLIA [id number] [address] [place] [address] [place] Eosinophils/100 WBC (Bld) 1.6 % Normal [facility] Comment on above: Order Comment: Speci men Type: BLOOD SPECIMEN Ordering Facility: [facility] Address: [address] [place] [address] Performed By: #### 5 7021-8 #### [facility] CLIA [id number] [address] [place] [address] [place] Erythrocyte distribution width (RBC) [Ratio] 16.2 % High 11.5-15.0 [facility] [place] Comment on above: Order Comment: Speci men Type: BLOOD SPECIMEN Ordering Facility: [facility] Address: [address] [place] [address] Performed By: #### 5 7021-8 #### [facility] CLIA [id number] [address] [place] [address] [place] Hematocrit (Bld) [Volume fraction] 42.3 % Normal 39.0-51.0 [facility] [place] Comment on above: Order Comment: Speci men Type: BLOOD SPECIMEN Ordering Facility: [facility] Address: [address] [place] [address] Performed By: #### 5 7021-8 #### [facility] CLIA [id number] [address] [place] [address] [place] Hemoglobin (Bld) [Mass/Vol] 13.0 g/dL Normal 13.0-17.0 [facility] [place] Comment on above: Order Comment: Speci men Type: BLOOD SPECIMEN Ordering Facility: [facility] Address: [address] [place] [address] Performed By: #### 5 7021-8 #### [facility] CLIA [id number] [address] [place] [address] [place] Immature granulocytes (Bld) [#/Vol] 0.04 10*3/uL Normal <0.10 [facility] [place] Comment on above: Order Comment: Speci men Type: BLOOD SPECIMEN Ordering Facility: [facility] Address: [address] [place] [address] Performed By: #### 5 7021-8 #### [facility] CLIA [id number] [address] [place] [address] [place] Immature granulocytes/100 WBC (Bld) 0.3 % Normal [facility] [place] Comment on above: Order Comment: Speci men Type: BLOOD SPECIMEN Ordering Facility: [facility] Address: [address] [place] [address] Performed By: #### 5 7021-8 #### [facility] [id number] [address] [place] [address] [place] Lymphocytes (Bld) [#/Vol] 4.12 10*3/uL High 1.00-4.00 [facility] [place] Comment on above: Order Comment: Speci men Type: BLOOD SPECIMEN Ordering Facility: [facility] Address: [address] [place] [address] Performed By: #### 5 7021-8 #### [facility] CLIA [id number] [address] [place] [address] [place] Lymphocytes/100 WBC (Bld) 33.4 % Normal [facility] [place] Comment on above: Order Comment: Speci men Type: BLOOD SPECIMEN Ordering Facility: [facility] Address: [address] [place] [address] Performed By: #### 5 7021-8 #### [facility] CLIA [id number] [address] [place] [address] [place] MCH (RBC) [Entitic mass] 23.2 pg Low 26.0-34.0 [facility] [place] Comment on above: Order Comment: Speci men Type: BLOOD SPECIMEN Ordering Facility: [facility] Address: [address] [place] [address] Performed By: #### 5 7021-8 #### [facility] CLIA [id number] [address] [place] [address] [place] MCHC (RBC) [Mass/Vol] 30.7 g/dL Normal 30.5-36.[address] [facility] Comment on above: Order Comment: Speci men Type: BLOOD SPECIMEN Ordering Facility: [facility] Address: [address] [place] [address] Performed By: #### 5 7021-8 #### [facility] [id number] [address] [place] [address] [place] MCV (RBC) [Entitic vol] 75.4 fL Low 80.0-100.0 C [facility] Comment on above: Order Comment: Speci men Type: BLOOD SPECIMEN Ordering Facility: [facility] Address: [address] [place] [address] Performed By: #### 5 7021-8 #### [facility] CLIA [id number] [address] [place] [address] [place] Monocytes (Bld) [#/Vol] 0.97 10*3/uL High <0.87 [facility] [place] Comment on above: Order Comment: Speci men Type: BLOOD SPECIMEN Ordering Facility: [facility] Address: [address] [place] [address] Performed By: #### 5 7021-8 #### [facility] CLIA [id number] [address] [place] [address] [place] Monocytes/100 WBC (Bld) 7.9 % Normal [facility] Comment on above: Order Comment: Speci men Type: BLOOD SPECIMEN Ordering Facility: [facility] Address: [address] [place] [address] Performed By: #### 5 7021-8 #### [facility] CLIA [id number] [address] [place] [address] [place] Neutrophils (Bld) [#/Vol] 6.94 10*3/uL Normal 1.45-7.50 [facility] [place] Comment on above: Order Comment: Speci men Type: BLOOD SPECIMEN Ordering Facility: [facility] Address: [address] [place] [address] Performed By: #### 5 7021-8 #### [facility] CLIA [id number] [address] [place] [address] [place] Neutrophils/100 WBC (Bld) 56.3 % Normal [facility] [place] Comment on above: Order Comment: Speci men Type: BLOOD SPECIMEN Ordering Facility: [facility] Address: [address] [place] [address] Performed By: #### 5 7021-8 #### [facility] CLIA [id number] [address] [place] [address] [place] Nucleated RBC (Bld) [#/Vol] 10*3/uL Normal <0.01 [facility] [place] Comment on above: Order Comment: Speci men Type: BLOOD SPECIMEN Ordering Facility: [facility] Address: [address] [place] [address] Performed By: #### 5 7021-8 #### [facility] CLIA [id number] [address] [place] [address] [place] Nucleated RBC/100 WBC (Bld) [Ratio] 0.0 /100 WBC Normal [facility] [place] Comment on above: Order Comment: Speci men Type: BLOOD SPECIMEN Ordering Facility: [facility] Address: [address] [place] [address] Performed By: #### 5 7021-8 #### [facility] CLIA [id number] [address] [place] [address] [place] Platelet mean volume (Bld) [Entitic vol] 11.3 fL Normal 9.0-12.7 [facility] [place] Comment on above: Order Comment: Speci men Type: BLOOD SPECIMEN Ordering Facility: [facility] Address: [address] [place] [address] Performed By: #### 5 7021-8 #### [facility] CLIA [id number] [address] [place] [address] [place] Platelets (Bld) [#/Vol] 403 10*3/uL High 150-400 [facility] [place] Comment on above: Order Comment: Speci men Type: BLOOD SPECIMEN Ordering Facility: [facility] Address: [address] [place] [address] Performed By: #### 5 7021-8 #### [facility] CLIA [id number] [address] [place] [address] [place] RBC (Bld) [#/Vol] 5.61 10*6/uL Normal 4.20-6.00 [facility] Comment on above: Order Comment: Speci men Type: BLOOD SPECIMEN Ordering Facility: [facility] Address: [address] [place] [address] Performed By: #### 5 7021-8 #### [facility] CLIA [id number] [address] [place] [address] [place] WBC (Bld) [#/Vol] 12.33 10*3/uL High 3.70-11.00 [facility] Comment on above: Order Comment: Speci men Type: BLOOD SPECIMEN Ordering Facility: [facility] Address: [address] [facility], [place] [address] Performed By: #### 5 7021-8 #### [facility] CLIA [id number] [address] [place] [address] [place] Comprehensive metabolic 2000 panelon 10-10-2024 Albumin [Mass/Vol] 3.8 g/dL Low 3.9-4.9 [facility] Comment on above: Order Comment: Speci men Type: BLOOD SPECIMEN Ordering Facility: [facility] Address: [address] [place] [address], [place] [address] Performed By: #### 2 4323-8, 3016-3 #### [facility] CLIA [id number] [address] [place] #### 20476-8 #### [facility] CLIA [id number] 1 [place] [address] [place] [facility] CLIA [id number] [address] [place] [address] [place] ALP [Catalytic activity/Vol] 175 U/L High 38-113 [facility] [place] Comment on above: Order Comment: Speci men Type: BLOOD SPECIMEN Ordering Facility: [facility] Address: [address] [place] [address], [place] [address] Performed By: #### 2 4323-8, 6-3 #### [facility] CLIA [id number] [address] [place] #### 55677-9 #### [facility] CLIA [id number] 1 [place] [address] [place] [facility] CLIA [id number] [address] [place] [address] [place] ALT With P-5'-P [Catalytic activity/Vol] 22 U/L Normal 10-54 [facility] [place] Comment on above: Order Comment: Speci men Type: BLOOD SPECIMEN Ordering Facility: [facility] Address: [address] [facility], [place] [address] Performed By: #### 2 4323-8, 3016-3 #### [facility] CLIA [id number] [address] [place] #### 71987-7 #### [facility] CLIA [id number] 1 [place] [address] [place] [facility] CLIA [id number] [address] [place] Anion gap [Moles/Vol] 16 mmol/L High 8-[address] [facility] Comment on above: Order Comment: Speci men Type: BLOOD SPECIMEN Ordering Facility: [facility] Address: [address] [place] [address], [place] [address] Performed By: #### 2 4323-8, 6-3 #### [facility] CLIA [id number] [address] [place] #### 20677-7 #### [facility] CLIA [id number] [address] STATES OF [facility] CLIA [id number] [address] [place] [address] [place] AST With P-5'-P [Catalytic activity/Vol] 16 U/L Normal 14-40 [facility] [place] Comment on above: Order Comment: Speci men Type: BLOOD SPECIMEN Ordering Facility: [facility] Address: [address] [place] [address], [place] [address] Performed By: #### 2 4323-8, 6-3 #### [facility] CLIA [id number] [address] [place] #### 12960-1 #### [facility] CLIA [id number] 1 [place] [address] [place] [facility] CLIA [id number] [address] [place] [address] [place] Bilirubin [Mass/Vol] 0.2 mg/dL Normal 0.2-1.3 [facility] Comment on above: Order Comment: Speci men Type: BLOOD SPECIMEN Ordering Facility: [facility] Address: [address] [facility], [place] [address] Performed By: #### 2 4323-8, 3016-3 #### [facility] CLIA [id number] [address] #### 40244-2 #### [facility] CLIA [id number] [address] OF [facility] CLIA [id number] [address] [place] Calcium [Mass/Vol] 8.9 mg/dL Normal 8.5-10.2 [facility] Comment on above: Order Comment: Speci men Type: BLOOD SPECIMEN Ordering Facility: [facility] Address: [address] [place] [address], [place] [address] Performed By: #### 2 43238, 6-3 #### [facility] CLIA [id number] [address] #### 77891-5 #### [facility] CLIA [id number] [address] OF [facility] CLIA [id number] [address] [facility] Chloride [Moles/Vol] 88 mmol/L Low 98-107 [facility] Comment on above: Order Comment: Speci men Type: BLOOD SPECIMEN Ordering Facility: [facility] Address: [address] [place] [address], [place] [address] Performed By: #### 2 4323-8, 6-3 #### [facility] CLIA [id number] [address] OF [place] #### 32522-5 #### [facility] CLIA [id number] 1 [place], [place] [address] [place] [address] OF [facility] CLIA [id number] [address] [place] [address] [place] CO2 [Moles/Vol] 23 mmol/L Normal 22-30 [facility] [place] Comment on above: Order Comment: Speci men Type: BLOOD SPECIMEN Ordering Facility: [facility] Address: [address] [place] [address], [place] [address] Performed By: #### 2 4323-8, 3016-3 #### [facility] CLIA [id number] [address] [place] #### 73352-0 #### [facility] CLIA [id number] 1 [place] [address] [place] [facility] CLIA [id number] [address] [place] [address] [place] Creatinine [Mass/Vol] 0.64 mg/dL Low 0.73-1.[address] [facility] Comment on above: Order Comment: Speci men Type: BLOOD SPECIMEN Ordering Facility: [facility] Address: [address] [place] [address], [place] [address] Performed By: #### 2 4323-8, 3016-3 #### [facility] CLIA [id number] [address] [place] #### 89907-7 #### [facility] CLIA [id number] [address] [place] [facility] CLIA [id number] [address] [place] [address] [place] Creatinine and Glomerular filtration rate.predicted panel (S/P/Bld) 133 mL/min/1.73m??? Normal >=60 [facility] [place] Comment on above: Order Comment: Speci men Type: BLOOD SPECIMEN Ordering Facility: [facility] Address: [address] [place] [address], [place] [address] Result Comment: Tara mated Glomerular Filtration Rate [...] 4323-8, 6-3 #### [facility] CLIA [id number] [address] #### 51983-4 #### [facility] CLIA [id number] [address] CLIA [id number] [address] Glucose [Mass/Vol] 659 mg/dL High 74-99 [facility] Comment on above: Order Comment: Speci men Type: BLOOD SPECIMEN Ordering Facility: Nasreen Giladriana [facility] Address: [address] [place] [address] Result Comment: The [place] [employer] (ADA) provides guidance for cutoff [...] Standards of Medical Care in Diabetes 2016, [place] [employer]. Diabetes Care. 2016.39(Suppl 1). Performed By: #### 2 4323-8, 3015-3 #### [facility] CLIA [id number] [address] #### 28750-3 #### [facility] CLIA [id number] [address] [place] [facility] CLIA [id number] [address] [place] [address] [place] Potassium [Moles/Vol] 4.5 mmol/L Normal 3.7-5.[address] [facility] Comment on above: Order Comment: Speci men Type: BLOOD SPECIMEN Ordering Facility[facility] Address: [address] [facility] [place] [address] Performed By: #### 2 4323-8, 3016-3 #### [facility] CLIA [id number] [address] [place] #### 04982-5 #### [facility] CLIA [id number] 1 [place] [address] [place] [facility] CLIA [id number] 1 [place] [address] [place] Protein [Mass/Vol] 6.9 g/dL Normal 6.3-8.0 [facility] Comment on above: Order Comment: Speci men Type: BLOOD SPECIMEN Ordering Facility[facility] Address: [address] [facility] [place] [address] Performed By: #### 2 4323-8, 6-3 #### [facility] CLIA [id number] [address] [place] #### 86968-8 #### [facility] CLIA [id number] 1 [place] [address] [place] [facility] CLIA [id number] [address] [place] [address] [place] Sodium [Moles/Vol] 127 mmol/L Low 136-144 [facility] Comment on above: Order Comment: Speci men Type: BLOOD SPECIMEN Ordering Facility[facility] Address: [address] [facility], [place] [address] Performed By: #### 2 4323-8, 6-3 #### [facility] CLIA [id number] [address] [place] #### 20988-9 #### [facility] CLIA [id number] 1 [place] [address] [place] [facility] CLIA [id number] [address] [place] Urea nitrogen [Mass/Vol] 17 mg/dL Normal 9-24 [facility] [place] Comment on above: Order Comment: Speci men Type: BLOOD SPECIMEN Ordering Facility[facility] Address: [address] [place] [address], [place] [address] Performed By: #### 2 4323-8, 3016-3 #### [facility] CLIA [id number] [address] [place] #### 15723-7 #### [facility] CLIA [id number] 1 [place] [address] [place] [facility] CLIA [id number] [address] [place] [address] [facility] Lipid 1996 panelon 5 Cholesterol [Mass/Vol] 177 mg/dL Normal <200 [facility] Comment on above: Order Comment: Speci men Type: BLOOD SPECIMEN Ordering [facility] Address: [address] [facility] [place] [address] Result Comment: <200 mg/dL, Desirable 200-239 mg/dL, Borderline high >239 mg/dL, High Performed By: #### 2 4323-8, 3016-3 #### [facility] CLIA [id number] [address] [place] #### 75821-2 #### [facility] CLIA [id number] 1 [place] [address] [place] [facility] CLIA [id number] [address] [place] [address] [place] Cholesterol in HDL [Mass/Vol] 46 mg/dL Normal >39 [facility] Comment on above: Order Comment: Noemi adrian Type: BLOOD SPECIMEN Order[facility] Facility[facility] Address: [address] [place] [address] Result Comment: 40-5 9 mg/dL, Acceptable >59 mg/dL, High: Negative risk factor for coronary heart disease <40 mg/dL, Low: Positive risk factor for coronary heart disease Performed By: #### 2 4323-8, 3016-3 #### [facility] CLIA [id number] [address] #### 63208-0 #### [facility] CLIA [id number] [address] CLIA [id number] [address] [place] [address] Cholesterol in LDL [Mass/Vol] 86 mg/dL Normal <100 [facility] [place] Comment on above: Order Comment: Noemi men Type: BLOOD SPECIMEN Order[facility] Address: [address] [place] [address] Result Comment: <100 mg/dL, Optimal 100-129 mg/dL, Near optimal/above optimal 130-159 mg/dL, Borderline high 160-189 mg/dL, High >189 mg/dL, Very high Secondary prevention optimal LDL Cholesterol levels are recommended to be < 70 mg/dL Performed By: #### 2 4323-8, 3016-3 #### [facility] CLIA [id number] [address] #### 77208-6 #### [facility] CLIA [id number] [address] CLIA [id number] [address] [place] [address] Cholesterol in LDL/Cholesterol in HDL [Mass ratio] 1.87 {ratio} Normal <2.54 [facility] [place] Comment on above: Order Comment: Noemi men Type: BLOOD SPECIMEN [facility] Address: [address] [place] [address] Result Comment: Philomena kirkland: 1. National Cholesterol Education Program ATP III Guideline At-A-Glance Quick Desk Reference: National Heart, Lung, and Blood [place]. National Institutes of Health. 2001: NIH Publication No. 01-3305. 2. An International Atherosclerosis Society position paper: global recommendations for the management of dyslipidemia: executive summary, Atherosclerosis. 2014: 232(2):410-413. Performed By: #### 2 4323-8, 3016-3 #### [facility] CLIA [id number] [address] #### 15493-5 #### [facility] CLIA [id number] [address] CLIA [id number] [address] [place] [address] [place] Cholesterol in VLDL [Mass/Vol] 45 mg/dL High <30 [facility] Comment on above: Order Comment: Speci men Type: BLOOD SPECIMEN [facility] Address: [address] [place] [address] Performed By: #### 2 4323-8, 6-3 #### [facility] CLIA [id number] [address] #### 71533-2 #### [facility] CLIA [id number] [address] CLIA [id number] [address] [place] [address] [place] Cholesterol non HDL [Mass/Vol] 131 mg/dL High <130 [facility] Comment on above: Order Comment: Speci men Type: BLOOD SPECIMEN [facility] Address: [address] [place] [address] Result Comment: <130 mg/dL, Optimal 130-159 mg/dL, Near optimal/above optimal 160-189 mg/dL, Borderline high 190-219 mg/dL, High >219 mg/dL, Very high Secondary prevention optimal non HDL Cholesterol levels are recommended to be <100 mg/dL Performed By: #### 2 4323-8, 6-3 #### [facility] CLIA [id number] [address] #### 10017-2 #### [facility] CLIA [id number] [address] CLIA [id number] [address] [place] [address] Cholesterol.total/Shanon sterol in HDL [Mass ratio] 3.85 {ratio} Normal <5.10 [facility] Comment on above: Order Comment: Speci men Type: BLOOD SPECIMEN Order[facility] Address: [address] [place] [address] Performed By: #### 2 4323-8, 3015-3 #### [facility] CLIA [id number] [address] #### 49631-3 #### [facility] CLIA [id number] [address] CLIA [id number] [place] [address] FASTING TIME 12 hrs Normal [facility] Comment on above: Order Comment: Speci men Type: BLOOD SPECIMEN Order[facility] Address: [address] [place] [address] Performed By: #### 2 4323-8, 6-3 #### [facility] CLIA [id number] [address] #### 88382-0 #### [facility] CLIA [id number] [address] OF [facility] CLIA [id number] [address] [place] [address] [place] Triglyceride [Mass/Vol] 226 mg/dL High <150 C [facility] Comment on above: Order Comment: Speci men Type: BLOOD SPECIMEN [facility] Address: [address] [facility] [place] [address] Result Comment: <150 mg/dL, Normal 150-199 mg/dL, Borderline high 200-499 mg/dL, High >499 mg/dL, Very high Performed By: #### 2 4323-8, 3016-3 #### [facility] CLIA [id number] [address] #### 63074-1 #### [facility] CLIA [id number] [address] CLIA [id number] [address] [place] [address] [place] TSH SerPl-aCncon 10-10-2024 TSH Qn 1.060 m[IU]/L Normal 0.270-4.20 0 [facility] Comment on above: Order Comment: Speci men Type: BLOOD SPECIMEN Ordering [facility] Address: [address] [facility] [place] [address] Performed By: #### 2 4323-8, 3016-3 #### [facility] CLIA [id number] [address] #### 47838-0 #### [facility] CLIA [id number] [address] CLIA [id number] [address] [place] [address] Absolute lymphocyte countOrd ered By: Dr. Zarate on 01-03-2023 Lymphocytes Auto (Unsp spec) [#/Vol] 5.11 10*3/uL 0.83-4.51 [facility] Basophil percentageOrdered B y: Dr. Zarate on 01-03-2023 Basophils/100 WBC (Bld) 0.6 % 0-1 [facility] Chloride [Moles/Vol] 97 mmol/L 98-107 [facility] Eosinophils/100 WBC (Bld) 3.2 % 0-5 [facility] Glucose [Mass/Vol] 504 mg/dL 74-106 [facility] Comment on above: Glucose result great er than or equal to 200 mg/dLsuggests DIABETES MELLITUS per A.D.A. criteria. Neutrophils (Bld) [#/Vol] 5.5 10*3/uL 2.0-7.7 [facility] Neutrophils/100 WBC (Bld) 45.8 % 47-70 [facility] Potassium [Moles/Vol] 4.7 mmol/L 3.5-5.1 [facility] Sodium [Moles/Vol] 132 mmol/L 136-145 [facility] WBC (Bld) [#/Vol] 12.1 10*3/uL 4.4-11.0 [facility] Blood erythrocytes count (nu mber/volume)Ordered By: Dr. Zarate on 01-03-2023 RBC (Bld) [#/Vol] 4.87 10*6/uL 4.6-6.2 [facility] Blood hemoglobin measurement (mass/volume)Ordered By: Dr. Zarate on 01-03-2023 Hemoglobin (Bld) [Mass/Vol] 12.7 g/dL 13.0-16.5 [facility] Blood lymphocytes/100 leukoc ytesOrdered By: Dr. Zarate on 01-03-2023 Lymphocytes/100 WBC (Bld) 42.3 % 19-41 [facility] Blood manual differential co mment interpretation (narrative result)Ordered By: Dr. Zarate on 01-03-2023 Manual differential comment Gigi (Bld) [Interp] SCANNED [facility] Comment on above: LYMPHOCYTOSIS NOTED Blood monocytes/100 leukocyt esOrdered By: Dr. Zarate on 01-03-2023 Monocytes/100 WBC (Bld) 7.8 % 0-10 [facility] Blood platelet mean volumeOr dered By: Dr. Zarate on 01-03-2023 Platelet mean volume (Bld) [Entitic vol] 10.6 fL 6.2-12.0 [facility] Determination of erythrocyte mean corpuscular volume (MCV)Ordered By: Dr. Zarate on 01-03-2023 MCV (RBC) [Entitic vol] 81.9 fL 80-94 [facility] Glucose Glucometer (BldC) [M ass/Vol]Ordered By: Dr. Zarate on 01-03-2023 Glucose [Mass/Vol] 383 mg/dL 74-106 [facility] Comment on above: MANAGEMENT OF PATIEN T CARE PER NURSING PROTOCOL Hematocrit Auto (Bld) [Volum e fraction]Ordered By: Dr. Zarate on 01-03-2023 Hematocrit (Bld) [Volume fraction] 39.9 % 40-54 [facility] - Chemistry and C hemistry - challengeOrdered By: Dr. Zarate on 01-03-2023 CO2 [Moles/Vol] 23.0 mmol/L 21.0-32.0 [facility] Urea nitrogen/Creatinine [Mass ratio] 17.2 mg/mg 10-20 [facility] - Hematology and Cell countsOrdered By: Dr. Zarate on 01-03-2023 Erythrocyte distribution width (RBC) [Entitic vol] 41.9 fL 35.1-43.9 [facility] Erythrocyte distribution width (RBC) [Ratio] 14.3 % 11.6-14.6 [facility] Immature granulocytes/100 WBC (Bld) 0.300 % 0.0-0.9 [facility] Comment on above: IG% - Immature Granu locytes (promyelocytes, myelocytes and metamyelocytes) > 1% indicates that a LEFT SHIFT is Present. MCH (RBC) [Entitic mass] 26.1 pg 27.0-32.0 [facility] Nucleated RBC/100 WBC (Bld) [Ratio] 0 % 0-5 [facility] MCHC Auto (RBC) [Mass/Vol]Or dered By: Dr. Zarate on 01-03-2023 MCHC (RBC) [Mass/Vol] 31.8 g/dL 32-36 [facility] No Panel InformationOrdered By: Dr. Zarate on 01-03-2023 Estimated Creatinine Clearance Calc 122.45 ml/min [facility] Estimated GFR (MDRD) Amer 136 mL/min >60 [facility] Comment on above: GFR Calc Estimated GFR (MDRD) Non-Af Amer 113 mL/min >60 [facility] Comment on above: Non- GFR Calc Troponin I High Sensitivity 4 pg/mL 3.0-78.0 [facility] Comment on above: Critical Result(s) C alled at: 23:19:17 01/03/2023 by: MICHAEL COUGHLIN RN (ED) Results read back by same. Please Note: New Test Units and Gender Specific Reference Ranges. For more information see Policy Stat Procedure [place] High Sensitivity Troponin (TNIH) and attachments. Platelets bldOrdered By: Dr. Zarate on 01-03-2023 Platelets (Bld) [#/Vol] 357 10*3/uL 150-450 [facility] Serum or plasma calcium koby urement (mass/volume)Ordered By: Dr. Zarate on 01-03-2023 Calcium [Mass/Vol] 8.6 mg/dL 8.5-10.1 [facility] Serum or plasma creatinine m easurement (mass/volume)Ordered By: Dr. Zarate on 01-03-2023 Creatinine [Mass/Vol] 0.87 mg/dL 0.70-1.30 [facility] Comment on above: The validity of the calculated GFR & GFRAA in patients over 70 years has not been determined. Clinical correlation is essential. Serum or plasma urea nitroge n measurement (mass/volume)Ordered By: Dr. Zarate on 01-03-2023 Urea nitrogen [Mass/Vol] 15 mg/dL 7-18 [facility] Thin prep Papanicolaou smear with manual screeningOrdered By: Dr. Zarate on 01-03-2023 Thin prep Papanicolaou smear with manual screening 12 5-15 [facility] Absolute lymphocyte countOrd ered By: Dr. Lynn on 12-09-2022 Lymphocytes Auto (Unsp spec) [#/Vol] 4.06 10*3/uL 0.83-4.51 [facility] Basophil percentageOrdered B y: Dr. Lynn on 12-09-2022 Basophils/100 WBC (Bld) 0.6 % 0-1 [facility] Chloride [Moles/Vol] 96 mmol/L 98-107 [facility] Eosinophils/100 WBC (Bld) 1.9 % 0-5 [facility] Glucose [Mass/Vol] 396 mg/dL 74-106 [facility] Comment on above: Glucose result great er than or equal to 200 mg/dLsuggests DIABETES MELLITUS per A.D.A. criteria. Neutrophils (Bld) [#/Vol] 4.6 10*3/uL 2.0-7.7 [facility] Neutrophils/100 WBC (Bld) 47.9 % 47-70 [facility] Potassium [Moles/Vol] 5.0 mmol/L 3.5-5.1 [facility] Sodium [Moles/Vol] 133 mmol/L 136-145 [facility] WBC (Bld) [#/Vol] 9.6 10*3/uL 4.4-11.0 [facility] Blood erythrocytes count (nu mber/volume)Ordered By: Dr. Lynn on 12-09-2022 RBC (Bld) [#/Vol] 6.66 10*6/uL 4.6-6.2 [facility] Blood hemoglobin measurement (mass/volume)Ordered By: Dr. Lynn on 12-09-2022 Hemoglobin (Bld) [Mass/Vol] 17.0 g/dL 13.0-16.5 [facility] Blood lymphocytes/100 leukoc ytesOrdered By: Dr. Lynn on 12-09-2022 Lymphocytes/100 WBC (Bld) 42.1 % 19-41 [facility] Blood monocytes/100 leukocyt esOrdered By: Dr. Lynn on 12-09-2022 Monocytes/100 WBC (Bld) 7.3 % 0-10 [facility] Blood platelet mean volumeOr dered By: Dr. Lynn on 12-09-2022 Platelet mean volume (Bld) [Entitic vol] 10.8 fL 6.2-12.0 [facility] Determination of erythrocyte mean corpuscular volume (MCV)Ordered By: Dr. Lynn on 12-09-2022 MCV (RBC) [Entitic vol] 79.4 fL 80-94 [facility] HCO3 (BldA) [Moles/Vol]Order ed By: Dr. Lynn on 12-09-2022 HCO3 (Bld) [Moles/Vol] 21 mmol/L 22-26 [facility] Hematocrit Auto (Bld) [Volum e fraction]Ordered By: Dr. Lynn on 12-09-2022 Hematocrit (Bld) [Volume fraction] 52.9 % 40-54 [facility] - Chemistry and C hemistry - challengeOrdered By: Dr. Lynn on 12-09-2022 CO2 [Moles/Vol] 22 mmol/L 23-33 [facility] CO2 [Moles/Vol] 28.0 mmol/L 21.0-32.0 [facility] Natriuretic peptide B (Bld) [Mass/Vol] 2.7 pg/mL 0-100 [facility] Urea nitrogen/Creatinine [Mass ratio] 16.4 mg/mg 10-20 [facility] - Hematology and Cell countsOrdered By: Dr. Lynn on 12-09-2022 Erythrocyte distribution width (RBC) [Entitic vol] 38.5 fL 35.1-43.9 [facility] Erythrocyte distribution width (RBC) [Ratio] 13.4 % 11.6-14.6 [facility] Immature granulocytes/100 WBC (Bld) 0.200 % 0.0-0.9 [facility] Comment on above: IG% - Immature Granu locytes (promyelocytes, myelocytes and metamyelocytes) > 1% indicates that a LEFT SHIFT is Present. MCH (RBC) [Entitic mass] 25.5 pg 27.0-32.0 [facility] Nucleated RBC/100 WBC (Bld) [Ratio] 0 % 0-5 [facility] MCHC Auto (RBC) [Mass/Vol]Or dered By: Dr. Lynn on 12-09-2022 MCHC (RBC) [Mass/Vol] 32.1 g/dL 32-36 [facility] No Panel InformationOrdered By: Dr. Lynn on 12-09-2022 Bed Mix Venous Bld PCO2 at Pat Temp 32.1 mmHg 41-51 [facility] Blood Gas Specimen Type JAIDEN [facility] Venous Blood Base Excess -3 mmol/L -1.0-3.5 [facility] D-Dimer Quantitative (PE/DVT) < 0.27 FEU/ug/m 0.27-0.49 [facility] Comment on above: NORMAL D-Dimer level (<0.50) indicates no DVT or PE. Estimated Creatinine Clearance Calc 91.04 ml/min [facility] Estimated GFR (MDRD) Amer 104 mL/min >60 [facility] Comment on above: GFR Calc Estimated GFR (MDRD) Non-Af Amer 86 mL/min >60 [facility] Comment on above: Non- GFR Calc Troponin I High Sensitivity 4 pg/mL 3.0-78.0 [facility] Comment on above: Please Note: New [place] t Units and Gender Specific Reference Ranges. For more information see Policy Stat Procedure [place] High Sensitivity Troponin (TNIH) and attachments. PO2 venousOrdered By: Dr. Marry baxter on 12-09-2022 Oxygen (BldV) [Partial pressure] 53 mm[Hg] 25-40 [facility] Platelets bldOrdered By: Dr. Lynn on 12-09-2022 Platelets (Bld) [#/Vol] 405 10*3/uL 150-450 [facility] Serum or plasma acetone koby urement (mass/volume)Ordered By: Dr. Lynn on 12-09-2022 Acetone [Mass/Vol] Negative NEG [facility] Serum or plasma calcium koby urement (mass/volume)Ordered By: Dr. Lynn on 12-09-2022 Calcium [Mass/Vol] 10.6 mg/dL 8.5-10.1 [facility] Serum or plasma creatinine m easurement (mass/volume)Ordered By: Dr. Lynn on 12-09-2022 Creatinine [Mass/Vol] 1.10 mg/dL 0.70-1.30 [facility] Comment on above: The validity of the calculated GFR & GFRAA in patients over 70 years has not been determined. Clinical correlation is essential. Serum or plasma urea nitroge n measurement (mass/volume)Ordered By: Dr. Lynn on 12-09-2022 Urea nitrogen [Mass/Vol] 18 mg/dL 7-18 [facility] Thin prep Papanicolaou smear with manual screeningOrdered By: Dr. Lynn on 12-09-2022 Thin prep Papanicolaou smear with manual screening 9 5-15 [facility] Vital signsOrdered By: Dr. Vicky coello on 12-09-2022 Oxygen saturation in Blood 88 % 50-70 [facility] pH measurementOrdered By: Dr Shin Lynn on 12-09-2022 pH (Unsp spec) 7.43 [pH] 7.32-7.42 [facility] Absolute lymphocyte countOrd ered By: ED PROVIDER on 12-03-2022 Lymphocytes Auto (Unsp spec) [#/Vol] 3.71 10*3/uL 0.83-4.51 [facility] Basophil percentageOrdered B y: ED PROVIDER on 12-03-2022 Basophils/100 WBC (Bld) 0.4 % 0-1 [facility] Eosinophils/100 WBC (Bld) 2.0 % 0-5 [facility] Neutrophils (Bld) [#/Vol] 8.6 10*3/uL 2.0-7.7 [facility] Neutrophils/100 WBC (Bld) 62.3 % 47-70 [facility] WBC (Bld) [#/Vol] 13.8 10*3/uL 4.4-11.0 [facility] Basophil percentageOrdered B y: Dr. Calvillo on 12-03-2022 Chloride [Moles/Vol] 105 mmol/L 98-107 [facility] Glucose [Mass/Vol] 64 mg/dL 74-106 [facility] Potassium [Moles/Vol] 3.6 mmol/L 3.5-5.1 [facility] Sodium [Moles/Vol] 138 mmol/L 136-145 [facility] Blood erythrocytes count (nu mber/volume)Ordered By: ED PROVIDER on 12-03-2022 RBC (Bld) [#/Vol] 5.14 10*6/uL 4.6-6.2 [facility] Blood hemoglobin measurement (mass/volume)Ordered By: ED PROVIDER on 12-03-2022 Hemoglobin (Bld) [Mass/Vol] 13.2 g/dL 13.0-16.5 [facility] Blood lymphocytes/100 leukoc ytesOrdered By: ED PROVIDER on 12-03-2022 Lymphocytes/100 WBC (Bld) 26.9 % 19-41 [facility] Blood monocytes/100 leukocyt esOrdered By: ED PROVIDER on 12-03-2022 Monocytes/100 WBC (Bld) 8.0 % 0-10 [facility] Blood platelet mean volumeOr dered By: ED PROVIDER on 12-03-2022 Platelet mean volume (Bld) [Entitic vol] 10.9 fL 6.2-12.0 [facility] Determination of erythrocyte mean corpuscular volume (MCV)Ordered By: ED PROVIDER on 12-03-2022 MCV (RBC) [Entitic vol] 84.0 fL 80-94 [facility] Hematocrit Auto (Bld) [Volum e fraction]Ordered By: ED PROVIDER on 12-03-2022 Hematocrit (Bld) [Volume fraction] 43.2 % 40-54 [facility] - Chemistry and C hemistry - challengeOrdered By: Dr. Calvillo on 12-03-2022 CO2 [Moles/Vol] 28.0 mmol/L 21.0-32.0 [facility] Urea nitrogen/Creatinine [Mass ratio] 16.6 mg/mg 10-20 [facility] - Hematology and Cell countsOrdered By: ED PROVIDER on 12-03-2022 Erythrocyte distribution width (RBC) [Entitic vol] 41.1 fL 35.1-43.9 [facility] Erythrocyte distribution width (RBC) [Ratio] 13.4 % 11.6-14.6 [facility] Immature granulocytes/100 WBC (Bld) 0.400 % 0.0-0.9 [facility] Comment on above: IG% - Immature Granu locytes (promyelocytes, myelocytes and metamyelocytes) > 1% indicates that a LEFT SHIFT is Present. MCH (RBC) [Entitic mass] 25.7 pg 27.0-32.0 [facility] Nucleated RBC/100 WBC (Bld) [Ratio] 0 % 0-5 [facility] MCHC Auto (RBC) [Mass/Vol]Or dered By: ED PROVIDER on 12-03-2022 MCHC (RBC) [Mass/Vol] 30.6 g/dL 32-36 [facility] No Panel InformationOrdered By: Dr. Calvillo on 12-03-2022 D-Dimer Quantitative (PE/DVT) 0.40 FEU/ug/m 0.27-0.49 [facility] Comment on above: NORMAL D-Dimer level (<0.50) indicates no DVT or PE. Estimated Creatinine Clearance Calc 159.00 ml/min [facility] Estimated GFR (MDRD) Amer 187 mL/min >60 [facility] Comment on above: GFR Calc Estimated GFR (MDRD) Non-Af Amer 155 mL/min >60 [facility] Comment on above: Non- GFR Calc Troponin I High Sensitivity 3 pg/mL 3.0-78.0 [facility] Comment on above: Please Note: New [place] Units and Gender Specific Reference Ranges. For more information see Policy Stat Procedure [place] High Sensitivity Troponin (TNIH) and attachments. Platelets bldOrdered By: ED PROVIDER on 12-03-2022 Platelets (Bld) [#/Vol] 348 10*3/uL 150-450 [facility] Serum or plasma calcium koby urement (mass/volume)Ordered By: Dr. Calvillo on 12-03-2022 Calcium [Mass/Vol] 8.9 mg/dL 8.5-10.1 [facility] Serum or plasma creatinine m easurement (mass/volume)Ordered By: Dr. Calvillo on 12-03-2022 Creatinine [Mass/Vol] 0.66 mg/dL 0.70-1.30 [facility] Comment on above: The validity of the calculated GFR & GFRAA in patients over 70 years has not been determined. Clinical correlation is essential. Serum or plasma urea nitroge n measurement (mass/volume)Ordered By: Dr. Calvlilo on 12-03-2022 Urea nitrogen [Mass/Vol] 11 mg/dL 7-18 [facility] Thin prep Papanicolaou smear with manual screeningOrdered By: Dr. Calvillo on 12-03-2022 Thin prep Papanicolaou smear with manual screening 5 5-15 [facility] Absolute lymphocyte countOrd ered By: ED PROVIDER on 11-17-2022 Lymphocytes Auto (Unsp spec) [#/Vol] 4.55 10*3/uL 0.83-4.51 [facility] Basophil percentageOrdered B y: ED PROVIDER on 11-17-2022 Basophils/100 WBC (Bld) 0.5 % 0-1 [facility] Chloride [Moles/Vol] 103 mmol/L 98-107 [facility] Eosinophils/100 WBC (Bld) 2.8 % 0-5 [facility] Glucose [Mass/Vol] 278 mg/dL 74-106 [facility] Comment on above: Glucose result great er than or equal to 200 mg/dLsuggests DIABETES MELLITUS per A.D.A. criteria. Neutrophils (Bld) [#/Vol] 5.8 10*3/uL 2.0-7.7 [facility] Neutrophils/100 WBC (Bld) 49.8 % 47-70 [facility] Potassium [Moles/Vol] 3.8 mmol/L 3.5-5.1 [facility] Sodium [Moles/Vol] 134 mmol/L 136-145 [facility] WBC (Bld) [#/Vol] 11.7 10*3/uL 4.4-11.0 [facility] Blood erythrocytes count (nu mber/volume)Ordered By: ED PROVIDER on 11-17-2022 RBC (Bld) [#/Vol] 5.10 10*6/uL 4.6-6.2 [facility] Blood hemoglobin measurement (mass/volume)Ordered By: ED PROVIDER on 11-17-2022 Hemoglobin (Bld) [Mass/Vol] 13.3 g/dL 13.0-16.5 [facility] Blood lymphocytes/100 leukoc ytesOrdered By: ED PROVIDER on 11-17-2022 Lymphocytes/100 WBC (Bld) 38.9 % 19-41 [facility] Blood monocytes/100 leukocyt esOrdered By: ED PROVIDER on 11-17-2022 Monocytes/100 WBC (Bld) 7.7 % 0-10 [facility] Blood platelet mean volumeOr dered By: ED PROVIDER on 11-17-2022 Platelet mean volume (Bld) [Entitic vol] 10.9 fL 6.2-12.0 [facility] Determination of erythrocyte mean corpuscular volume (MCV)Ordered By: ED PROVIDER on 11-17-2022 MCV (RBC) [Entitic vol] 80.6 fL 80-94 [facility] Hematocrit Auto (Bld) [Volum e fraction]Ordered By: ED PROVIDER on 11-17-2022 Hematocrit (Bld) [Volume fraction] 41.1 % 40-54 [facility] - Chemistry and C hemistry - challengeOrdered By: ED PROVIDER on 11-17-2022 CO2 [Moles/Vol] 26.0 mmol/L 21.0-32.0 [facility] Urea nitrogen/Creatinine [Mass ratio] 17.0 mg/mg 10-20 [facility] - Hematology and Cell countsOrdered By: ED PROVIDER on 11-17-2022 Erythrocyte distribution width (RBC) [Entitic vol] 37.6 fL 35.1-43.9 [facility] Erythrocyte distribution width (RBC) [Ratio] 12.8 % 11.6-14.6 [facility] Immature granulocytes/100 WBC (Bld) 0.300 % 0.0-0.9 [facility] Comment on above: IG% - Immature Granu locytes (promyelocytes, myelocytes and metamyelocytes) > 1% indicates that a LEFT SHIFT is Present. MCH (RBC) [Entitic mass] 26.1 pg 27.0-32.0 [facility] Nucleated RBC/100 WBC (Bld) [Ratio] 0 % 0-5 [facility] MCHC Auto (RBC) [Mass/Vol]Or dered By: ED PROVIDER on 11-17-2022 MCHC (RBC) [Mass/Vol] 32.4 g/dL 32-36 [facility] No Panel InformationOrdered By: ED PROVIDER on 11-17-2022 Estimated Creatinine Clearance Calc 127.57 ml/min [facility] Estimated GFR (MDRD) Amer 159 mL/min >60 [facility] Comment on above: GFR Calc Estimated GFR (MDRD) Non-Af Amer 131 mL/min >60 [facility] Comment on above: Non- GFR Calc Troponin I High Sensitivity < 3 pg/mL 3.0-78.0 [facility] Comment on above: Please Note: New [place] Units and Gender Specific Reference Ranges. For more information see Policy Stat Procedure [place] High Sensitivity Troponin (TNIH) and attachments. Platelets bldOrdered By: ED PROVIDER on 11-17-2022 Platelets (Bld) [#/Vol] 304 10*3/uL 150-450 [facility] Serum or plasma calcium koby urement (mass/volume)Ordered By: ED PROVIDER on 11-17-2022 Calcium [Mass/Vol] 9.1 mg/dL 8.5-10.1 [facility] Serum or plasma creatinine m easurement (mass/volume)Ordered By: ED PROVIDER on 11-17-2022 Creatinine [Mass/Vol] 0.76 mg/dL 0.70-1.30 [facility] Comment on above: The validity of the calculated GFR & GFRAA in patients over 70 years has not been determined. Clinical correlation is essential. Serum or plasma urea nitroge n measurement (mass/volume)Ordered By: ED PROVIDER on 11-17-2022 Urea nitrogen [Mass/Vol] 13 mg/dL 7-18 [facility] Thin prep Papanicolaou smear with manual screeningOrdered By: ED PROVIDER on 11-17-2022 Thin prep Papanicolaou smear with manual screening 5 5-15 [facility] Absolute lymphocyte countOrd ered By: Dr. Palomino on 10-13-2022 Lymphocytes Auto (Unsp spec) [#/Vol] 3.87 10*3/uL 0.83-4.51 [facility] Basophil percentageOrdered B y: Dr. Palomino on 10-13-2022 Basophils/100 WBC (Bld) 0.8 % 0-1 [facility] Chloride [Moles/Vol] 105 mmol/L 98-107 [facility] Eosinophils/100 WBC (Bld) 4.3 % 0-5 [facility] Glucose [Mass/Vol] 243 mg/dL 74-106 [facility] Comment on above: Glucose result great er than or equal to 200 mg/dLsuggests DIABETES MELLITUS per A.D.A. criteria. Neutrophils (Bld) [#/Vol] 3.8 10*3/uL 2.0-7.7 [facility] Neutrophils/100 WBC (Bld) 43.5 % 47-70 [facility] Potassium [Moles/Vol] 3.4 mmol/L 3.5-5.1 [facility] Sodium [Moles/Vol] 140 mmol/L 136-145 [facility] WBC (Bld) [#/Vol] 8.8 10*3/uL 4.4-11.0 [facility] Blood erythrocytes count (nu mber/volume)Ordered By: Dr. Palomino on 10-13-2022 RBC (Bld) [#/Vol] 5.14 10*6/uL 4.6-6.2 [facility] Blood hemoglobin measurement (mass/volume)Ordered By: Dr. Palomino on 10-13-2022 Hemoglobin (Bld) [Mass/Vol] 13.3 g/dL 13.0-16.5 [facility] Blood lymphocytes/100 leukoc ytesOrdered By: Dr. Palomino on 10-13-2022 Lymphocytes/100 WBC (Bld) 44.1 % 19-41 [facility] Blood monocytes/100 leukocyt esOrdered By: Dr. Palomino on 10-13-2022 Monocytes/100 WBC (Bld) 7.2 % 0-10 [facility] Blood platelet mean volumeOr dered By: Dr. Palomino on 10-13-2022 Platelet mean volume (Bld) [Entitic vol] 10.4 fL 6.2-12.0 [facility] Determination of erythrocyte mean corpuscular volume (MCV)Ordered By: Dr. Palomino on 10-13-2022 MCV (RBC) [Entitic vol] 83.7 fL 80-94 [facility] Hematocrit Auto (Bld) [Volum e fraction]Ordered By: Dr. Palomino on 10-13-2022 Hematocrit (Bld) [Volume fraction] 43.0 % 40-54 [facility] - Chemistry and C hemistry - challengeOrdered By: Dr. Palomino on 10-13-2022 CO2 [Moles/Vol] 27.0 mmol/L 21.0-32.0 [facility] Urea nitrogen/Creatinine [Mass ratio] 13.8 mg/mg 10-20 [facility] - Hematology and Cell countsOrdered By: Dr. Palomino on 10-13-2022 Erythrocyte distribution width (RBC) [Entitic vol] 41.9 fL 35.1-43.9 [facility] Erythrocyte distribution width (RBC) [Ratio] 13.6 % 11.6-14.6 [facility] Immature granulocytes/100 WBC (Bld) 0.100 % 0.0-0.9 [facility] Comment on above: IG% - Immature Granu locytes (promyelocytes, myelocytes and metamyelocytes) > 1% indicates that a LEFT SHIFT is Present. MCH (RBC) [Entitic mass] 25.9 pg 27.0-32.0 [facility] Nucleated RBC/100 WBC (Bld) [Ratio] 0 % 0-5 [facility] MCHC Auto (RBC) [Mass/Vol]Or dered By: Dr. Palomino on 10-13-2022 MCHC (RBC) [Mass/Vol] 30.9 g/dL 32-36 [facility] No Panel InformationOrdered By: Dr. Palomino on 10-13-2022 Estimated Creatinine Clearance Calc 131.33 ml/min [facility] Estimated GFR (MDRD) Amer 169 mL/min >60 [facility] Comment on above: GFR Calc Estimated GFR (MDRD) Non-Af Amer 140 mL/min >60 [facility] Comment on above: Non- GFR Calc Troponin I High Sensitivity 4 pg/mL 3.0-78.0 [facility] Comment on above: Please Note: New [place] t Units and Gender Specific Reference Ranges. For more information see Policy Stat Procedure [place] High Sensitivity Troponin (TNIH) and attachments. Platelets bldOrdered By: Dr. Palomino on 10-13-2022 Platelets (Bld) [#/Vol] 309 10*3/uL 150-450 [facility] Serum or plasma calcium koby urement (mass/volume)Ordered By: Dr. Palomino on 10-13-2022 Calcium [Mass/Vol] 8.8 mg/dL 8.5-10.1 [facility] Serum or plasma creatinine m easurement (mass/volume)Ordered By: Dr. Palomino on 10-13-2022 Creatinine [Mass/Vol] 0.72 mg/dL 0.70-1.30 [facility] Comment on above: The validity of the calculated GFR & GFRAA in patients over 70 years has not been determined. Clinical correlation is essential. Serum or plasma urea nitroge n measurement (mass/volume)Ordered By: Dr. Palomino on 10-13-2022 Urea nitrogen [Mass/Vol] 10 mg/dL 7-18 [facility] Thin prep Papanicolaou smear with manual screeningOrdered By: Dr. Palomino on 10-13-2022 Thin prep Papanicolaou smear with manual screening 8 5-15 [facility] Absolute lymphocyte countOrd ered By: Dr. Reed on 08-24-2022 Lymphocytes Auto (Unsp spec) [#/Vol] 5.98 10*3/uL 0.83-4.51 [facility] Basophil percentageOrdered B y: Dr. Reed on 08-24-2022 Basophils/100 WBC (Bld) 0.3 % 0-1 [facility] Chloride [Moles/Vol] 103 mmol/L 98-107 [facility] Eosinophils/100 WBC (Bld) 5.5 % 0-5 [facility] Glucose [Mass/Vol] 52 mg/dL 74-106 [facility] Neutrophils (Bld) [#/Vol] 3.8 10*3/uL 2.0-7.7 [facility] Neutrophils/100 WBC (Bld) 30.5 % 47-70 [facility] Potassium [Moles/Vol] 3.0 mmol/L 3.5-5.1 [facility] Sodium [Moles/Vol] 142 mmol/L 136-145 [facility] WBC (Bld) [#/Vol] 12.6 10*3/uL 4.4-11.0 [facility] Blood erythrocytes count (nu mber/volume)Ordered By: Dr. Reed on 08-24-2022 RBC (Bld) [#/Vol] 5.40 10*6/uL 4.6-6.2 [facility] Blood hemoglobin measurement (mass/volume)Ordered By: Dr. Reed on 08-24-2022 Hemoglobin (Bld) [Mass/Vol] 14.0 g/dL 13.0-16.5 [facility] Blood lymphocytes/100 leukoc ytesOrdered By: Dr. Reed on 08-24-2022 Lymphocytes/100 WBC (Bld) 47.4 % 19-41 [facility] Blood manual differential co mment interpretation (narrative result)Ordered By: Dr. Reed on 08-24-2022 Manual differential comment Gigi (Bld) [Interp] SCANNED [facility] Blood monocytes/100 leukocyt esOrdered By: [address] Reed on 08-24-2022 Monocytes/100 WBC (Bld) 16.0 % 0-10 [facility] Blood platelet mean volumeOr dered By: Dr. Reed on 08-24-2022 Platelet mean volume (Bld) [Entitic vol] 10.5 fL 6.2-12.0 [facility] Determination of erythrocyte mean corpuscular volume (MCV)Ordered By: Dr. Reed on 08-24-2022 MCV (RBC) [Entitic vol] 81.5 fL 80-94 [facility] Hematocrit Auto (Bld) [Volum e fraction]Ordered By: Dr. Reed on 08-24-2022 Hematocrit (Bld) [Volume fraction] 44.0 % 40-54 [facility] Laboratory - Chemistry and C hemistry - challengeOrdered By: Dr. Reed on 08-24-2022 CO2 [Moles/Vol] 32.0 mmol/L 21.0-32.0 [facility] Urea nitrogen/Creatinine [Mass ratio] 16.8 mg/mg 10-20 [facility] - Hematology and Cell countsOrdered By: Dr. Reed on 08-24-2022 Erythrocyte distribution width (RBC) [Entitic vol] 40.7 fL 35.1-43.9 [facility] Erythrocyte distribution width (RBC) [Ratio] 14.0 % 11.6-14.6 [facility] Immature granulocytes/100 WBC (Bld) 0.300 % 0.0-0.9 [facility] Comment on above: IG% - Immature Granu locytes (promyelocytes, myelocytes and metamyelocytes) > 1% indicates that a LEFT SHIFT is Present. MCH (RBC) [Entitic mass] 25.9 pg 27.0-32.0 [facility] Nucleated RBC/100 WBC (Bld) [Ratio] 0 % 0-5 [facility] MCHC Auto (RBC) [Mass/Vol]Or dered By: Dr. Reed on 08-24-2022 MCHC (RBC) [Mass/Vol] 31.8 g/dL 32-36 [facility] Comment on above: Delta: 33.6 on 08/20 No Panel InformationOrdered By: Dr. Reed on 08-24-2022 Estimated Creatinine Clearance Calc 143.27 ml/min [facility] Estimated GFR (MDRD) Amer 190 mL/min >60 [facility] Comment on above: GFR Calc Estimated GFR (MDRD) Non-Af Amer 157 mL/min >60 [facility] Comment on above: Non- GFR Calc Reactive Lymphocytes 1+ [facility] Platelets bldOrdered By: Dr. Reed on 08-24-2022 Platelets (Bld) [#/Vol] 492 10*3/uL 150-450 [facility] Review by pathologistOrdered By: Dr. Reed on 08-24-2022 Pathologist review Gigi (Unsp spec) [Interp] December bowen [facility] Pathologist review Gigi (Unsp spec) [Interp] Reviewed [facility] Comment on above: Previous reported re sult: Louisa wiseman Edited by: RGOOD on 08/26/22:0938Leukocytosis. Thrombocytosis.Clinical correlation necessary.Herson Olivas M.D. 08/26/22 AMENDED REPORT 08/26/22 0938 PATH REV previously reported as: Louisa wiseman Serum or plasma calcium koby urement (mass/volume)Ordered By: Dr. Reed on 08-24-2022 Calcium [Mass/Vol] 9.4 mg/dL 8.5-10.1 [facility] Serum or plasma creatinine m easurement (mass/volume)Ordered By: Dr. Reed on 08-24-2022 Creatinine [Mass/Vol] 0.66 mg/dL 0.70-1.30 [facility] Comment on above: The validity of the calculated GFR & GFRAA in patients over 70 years has not been determined. Clinical correlation is essential. Serum or plasma urea nitroge n measurement (mass/volume)Ordered By: Dr. Reed on 08-24-2022 Urea nitrogen [Mass/Vol] 11 mg/dL 7-18 [facility] Thin prep Papanicolaou smear with manual screeningOrdered By: Dr. Reed on 08-24-2022 Thin prep Papanicolaou smear with manual screening 7 5-15 [facility] Absolute lymphocyte countOrd ered By: Dr. Cruz on 08-20-2022 Lymphocytes Auto (Unsp spec) [#/Vol] 3.61 10*3/uL 0.83-4.51 [facility] Basophil percentageOrdered B y: Dr. Cruz on 08-20-2022 Basophils/100 WBC (Bld) 0.2 % 0-1 [facility] Chloride [Moles/Vol] 104 mmol/L 98-107 [facility] Eosinophils/100 WBC (Bld) 0.2 % 0-5 [facility] Glucose [Mass/Vol] 162 mg/dL 74-106 [facility] Comment on above: Fasting Glucose resu lt greater than or equal to 126 mg/dL suggests DIABETES MELLITUS per A.D.A. criteria. Neutrophils (Bld) [#/Vol] 7.8 10*3/uL 2.0-7.7 [facility] Neutrophils/100 WBC (Bld) 60.1 % 47-70 [facility] Potassium [Moles/Vol] 3.0 mmol/L 3.5-5.1 [facility] Sodium [Moles/Vol] 141 mmol/L 136-145 [facility] WBC (Bld) [#/Vol] 13.0 10*3/uL 4.4-11.0 [facility] Blood erythrocytes count (nu mber/volume)Ordered By: Dr. Cruz on 08-20-2022 RBC (Bld) [#/Vol] 4.34 10*6/uL 4.6-6.2 [facility] Blood hemoglobin measurement (mass/volume)Ordered By: Dr. Cruz on 08-20-2022 Hemoglobin (Bld) [Mass/Vol] 11.7 g/dL 13.0-16.5 [facility] Blood lymphocytes/100 leukoc ytesOrdered By: Dr. Cruz on 08-20-2022 Lymphocytes/100 WBC (Bld) 27.7 % 19-41 [facility] Blood monocytes/100 leukocyt esOrdered By: Dr. Cruz on 08-20-2022 Monocytes/100 WBC (Bld) 11.4 % 0-10 [facility] Blood platelet mean volumeOr dered By: Dr. Cruz on 08-20-2022 Platelet mean volume (Bld) [Entitic vol] 10.1 fL 6.2-12.0 [facility] Determination of erythrocyte mean corpuscular volume (MCV)Ordered By: Dr. Cruz on 08-20-2022 MCV (RBC) [Entitic vol] 80.2 fL 80-94 [facility] Glucose Glucometer (BldC) [M ass/Vol]Ordered By: Dr. Cruz on 08-20-2022 Glucose [Mass/Vol] 120 mg/dL 74-106 [facility] Comment on above: MANAGEMENT OF PATIEN T CARE PER NURSING PROTOCOL Hematocrit Auto (Bld) [Volum e fraction]Ordered By: Dr. Cruz on 08-20-2022 Hematocrit (Bld) [Volume fraction] 34.8 % 40-54 [facility] - Chemistry and C hemistry - challengeOrdered By: Dr. Cruz on 08-20-2022 CO2 [Moles/Vol] 31.0 mmol/L 21.0-32.0 [facility] Urea nitrogen/Creatinine [Mass ratio] 18.1 mg/mg 10-20 [facility] - Hematology and Cell countsOrdered By: Dr. Cruz on 08-20-2022 Erythrocyte distribution width (RBC) [Entitic vol] 42.3 fL 35.1-43.9 [facility] Erythrocyte distribution width (RBC) [Ratio] 14.5 % 11.6-14.6 [facility] Immature granulocytes/100 WBC (Bld) 0.400 % 0.0-0.9 [facility] Comment on above: IG% - Immature Granu locytes (promyelocytes, myelocytes and metamyelocytes) > 1% indicates that a LEFT SHIFT is Present. MCH (RBC) [Entitic mass] 27.0 pg 27.0-32.0 [facility] Nucleated RBC/100 WBC (Bld) [Ratio] 0 % 0-5 [facility] MCHC Auto (RBC) [Mass/Vol]Or dered By: Dr. Cruz on 08-20-2022 MCHC (RBC) [Mass/Vol] 33.6 g/dL 32-36 [facility] No Panel InformationOrdered By: Dr. Cruz on 08-20-2022 Estimated Creatinine Clearance Calc 189.05 ml/min [facility] Estimated GFR (MDRD) Amer 232 mL/min >60 [facility] Comment on above: GFR Calc Estimated GFR (MDRD) Non-Af Amer 191 mL/min >60 [facility] Comment on above: Non- GFR Calc Platelets bldOrdered By: Dr. Cruz on 08-20-2022 Platelets (Bld) [#/Vol] 254 10*3/uL 150-450 [facility] Serum or plasma calcium koby urement (mass/volume)Ordered By: Dr. Cruz on 08-20-2022 Calcium [Mass/Vol] 8.0 mg/dL 8.5-10.1 [facility] Serum or plasma creatinine m easurement (mass/volume)Ordered By: Dr. Cruz on 08-20-2022 Creatinine [Mass/Vol] 0.55 mg/dL 0.70-1.30 [facility] Comment on above: The validity of the calculated GFR & GFRAA in patients over 70 years has not been determined. Clinical correlation is essential. Serum or plasma urea nitroge n measurement (mass/volume)Ordered By: Dr. Cruz on 08-20-2022 Urea nitrogen [Mass/Vol] 10 mg/dL 7-18 [facility] Thin prep Papanicolaou smear with manual screeningOrdered By: Dr. Cruz on 08-20-2022 Thin prep Papanicolaou smear with manual screening 6 5-15 [facility] Throat Streptococcus pyogene s antigen detection by immunofluorescenceOrdered By: Dr. Cruz on 08-20-2022 S. pyogenes Ag IF Ql (Throat) [facility] Review by pathologistOrdered By: Dr. Cruz on 08-19-2022 Pathologist review Gigi (Unsp spec) [Interp] Reviewed [facility] Comment on above: Previous reported re sult: Louisa wiseman Edited by: RGOOD on 08/20/22:0931Neutrophilic leukocytosis.Clinical correlation necessary.Herson Olivas M.D. 08/20/22 AMENDED REPORT 08/20/22 0931 PATH REV previously reported as: Louisa wiseman Basophil percentageOrdered B y: Dr. Handy on 08-18-2022 Lactate [Moles/Vol] 1.2 mmol/L 0.4-2.0 [facility] Basophil percentage 7.9 mg/dL 2.5-4.9 [facility] Basophil percentageOrdered B y: Dr. Cruz on 08-18-2022 Basophil percentage 0 SEEN /hpf 0-5 [facility] Bilirubin [Mass/Vol] 0.70 mg/dL 0.20-1.00 [facility] Comment on above: For patients on eltr ombopag therapy, use of Dimension [place] TBIL is not recommended. Protein [Mass/Vol] 7.2 g/dL 6.4-8.2 [facility] Bilirubin Test strip Ql (U)O rdered By: Dr. Cruz on 08-18-2022 Bilirubin Ql (U) Negative Negative [facility] Blood manual differential co mment interpretation (narrative result)Ordered By: Dr. Handy on 08-18-2022 Manual differential comment Gigi (Bld) [Interp] SCANNED [facility] Direct bilirubinOrdered By: Dr. Cruz on 08-18-2022 Bilirubin.direct [Mass/Vol] 0.13 mg/dL 0.00-0.30 [facility] HCO3 (BldA) [Moles/Vol]Order ed By: Dr. Cruz on 08-18-2022 HCO3 (Bld) [Moles/Vol] 4 mmol/L 22-26 [facility] Ketones Test strip Ql (U)Ord ered By: Dr. Cruz on 08-18-2022 Ketones Ql (U) 150 mg/dl Negative [facility] Comment on above: CRITICAL VALUE *HCRI TICAL VALUE VERIFIED. CALLED TO JOSE CARLOS ROGERS (ICU)08/18/22 1516 Walt Hoff.RESULTS READ BACK BY SAME. Laboratory - Chemistry and C hemistry - challengeOrdered By: Dr. Cruz on 08-18-2022 ALP [Catalytic activity/Vol] 178 U/L 45-117 [facility] ALT [Catalytic activity/Vol] 18 U/L 16-61 [facility] Globulin (S) [Mass/Vol] 4.0 g/dL 2.2-4.2 [facility] Laboratory - Chemistry and C hemistry - challengeOrdered By: Dr. Handy on 08-18-2022 Lipase [Catalytic activity/Vol] 34 U/L 73-393 [facility] Magnesium [Mass/Vol] 3.2 mg/dL 1.6-2.6 [facility] Laboratory - Microbiology an d Antimicrobial susceptibilityOrdered By: Dr. Cruz on 08-18-2022 SARS-CoV-2 (COVID-19) RNA LM+probe Ql (Unsp spec) Not detected Not Detect [facility] Comment on above: Normal Reference Ran [...] and RNA 12b panel LM+probe (Unsp spec) [facility] Mucus LM Ql (Urine sed)Order ed By: Dr. Cruz on 08-18-2022 Mucus Ql (Urine sed) 0 SEEN /hpf [facility] Nitrite Test strip Ql (U)Ord ered By: Dr. Cruz on 08-18-2022 Nitrite Ql (U) Negative Negative [facility] No Panel InformationOrdered By: Dr. Cruz on 08-18-2022 Bed Mix Venous Bld PCO2 at Pat Temp 13.9 mmHg 41-51 [facility] Bld Gas Crit Called To/Read Back By Yes [facility] Blood Gas Notified Time 10:17:05 [facility] Blood Gas Notified Whom rozina [facility] Blood Gas Specimen Type JAIDEN [facility] Oxygen Delivery Device Room Air [facility] Venous Blood Base Excess -25 mmol/L -1.0-3.5 [facility] Venous Blood Total Carbon Dioxide < 5 mmol/L 23-33 [facility] PO2 venousOrdered By: Dr. David guillory on 08-18-2022 Oxygen (BldV) [Partial pressure] 64 mm[Hg] 25-40 [facility] Protein Test strip Ql (U)Ord ered By: Dr. Cruz on 08-18-2022 Protein Ql (U) 15 mg/dl Negative [facility] Serum or plasma acetone koby urement (mass/volume)Ordered By: Dr. Handy on 08-18-2022 Acetone [Mass/Vol] LARGE NEG [facility] Serum or plasma albumin koby urement (mass/volume)Ordered By: Dr. Cruz on 08-18-2022 Albumin [Mass/Vol] 3.2 g/dL 3.2-5.0 [facility] Squamous epithelial cells de tection in urine sediment by light microscopyOrdered By: Dr. Cruz on 08-18-2022 Epithelial cells.squamous LM Ql (Urine sed) 0 SEEN /hpf 0-5 [facility] Thin prep Papanicolaou smear with manual screeningOrdered By: Dr. Cruz on 08-18-2022 Thin prep Papanicolaou smear with manual screening 3 U/L 15-37 [facility] Urine blood detectionOrdered By: Dr. Cruz on 08-18-2022 RBC Ql (U) Negative Negative [facility] RBC Ql (U) 0 SEEN /hpf 0-5 [facility] Urine clarityOrdered By: Dr. Cruz on 08-18-2022 Clarity (U) Clear Clear [facility] Urine color determinationOrd ered By: Dr. Cruz on 08-18-2022 Color (U) Straw Yellow [facility] Urine glucose detectionOrder ed By: Dr. Cruz on 08-18-2022 Glucose Ql (U) 1000 mg/dl Normal [facility] Urine leukocyte esterase det ection by dipstickOrdered By: Dr. Cruz on 08-18-2022 Leukocyte esterase Test strip Ql (U) Negative Negative [facility] Urine pHOrdered By: Dr. Karla green on 08-18-2022 pH (U) 5.0 [pH] 5.0 - 8.0 [facility] Urine sediment bacteria coun t by microscopy (number/high power field)Ordered By: Dr. Cruz on 08-18-2022 Bacteria LM.HPF (Urine sed) [#/Area] 0 /[HPF] None Seen [facility] Urine specific gravity measu rementOrdered By: Dr. Cruz on 08-18-2022 Specific gravity (U) [Rel density] 1.020 1.002-1.03 0 [facility] Urobilinogen Auto test strip Ql (U)Ordered By: Dr. Cruz on 08-18-2022 Urobilinogen Ql (U) Normal mg/dl Normal [facility] Vital signsOrdered By: Dr. Bladimir hernandez on 08-18-2022 Oxygen saturation in Blood 84 % 50-70 [facility] Whole blood hemoglobin A1c/t otal hemoglobin ratio (mass fraction)Ordered By: Dr. Handy on 08-18-2022 HbA1c (Bld) [Mass fraction] 10.7 % 3.8-5.6 [facility] Comment on above: Normal < 5.7 % Predi abetic 5.7 - 6.4 % Diabetic >or= 6.5 % Please note range changes. pH measurementOrdered By: Dr Shin Cruz on 08-18-2022 pH (Unsp spec) 7.10 [pH] 7.32-7.42 [facility] Absolute lymphocyte countOrd ered By: Lourdes Metz on 07-07-2022 Lymphocytes Auto (Unsp spec) [#/Vol] 1.75 10*3/uL 0.83-4.51 [facility] Basophil percentageOrdered B y: Lourdes Metz on 07-07-2022 Basophils/100 WBC (Bld) 0.4 % 0-1 [facility] Chloride [Moles/Vol] 95 mmol/L 98-107 [facility] Eosinophils/100 WBC (Bld) 0.4 % 0-5 [facility] Glucose [Mass/Vol] 376 mg/dL 74-106 [facility] Comment on above: Glucose result great er than or equal to 200 mg/dLsuggests DIABETES MELLITUS per A.D.A. criteria. Neutrophils (Bld) [#/Vol] 4.7 10*3/uL 2.0-7.7 [facility] Neutrophils/100 WBC (Bld) 62.7 % 47-70 [facility] Potassium [Moles/Vol] 3.6 mmol/L 3.5-5.1 [facility] Sodium [Moles/Vol] 133 mmol/L 136-145 [facility] WBC (Bld) [#/Vol] 7.5 10*3/uL 4.4-11.0 [facility] Blood erythrocytes count (nu mber/volume)Ordered By: Lourdes Metz on 07-07-2022 RBC (Bld) [#/Vol] 5.38 10*6/uL 4.6-6.2 [facility] Blood hemoglobin measurement (mass/volume)Ordered By: Lourdes Metz on 07-07-2022 Hemoglobin (Bld) [Mass/Vol] 14.3 g/dL 13.0-16.5 [facility] Blood lymphocytes/100 leukoc ytesOrdered By: Lourdes Metz on 07-07-2022 Lymphocytes/100 WBC (Bld) 23.2 % 19-41 [facility] Blood monocytes/100 leukocyt esOrdered By: Lourdes Metz on 07-07-2022 Monocytes/100 WBC (Bld) 13.0 % 0-10 [facility] Blood platelet mean volumeOr dered By: Lourdes Metz on 07-07-2022 Platelet mean volume (Bld) [Entitic vol] 11.2 fL 6.2-12.0 [facility] Determination of erythrocyte mean corpuscular volume (MCV)Ordered By: Lourdes Metz on 07-07-2022 MCV (RBC) [Entitic vol] 81.0 fL 80-94 [facility] Glucose Glucometer (dC) [M ass/Vol]Ordered By: Dr. Mcclain on 07-07-2022 Glucose [Mass/Vol] 158 mg/dL 74-106 [facility] Comment on above: MANAGEMENT OF PATIEN T CARE PER NURSING PROTOCOL Hematocrit Auto (Bld) [Volum e fraction]Ordered By: Lourdes Metz on 07-07-2022 Hematocrit (Bld) [Volume fraction] 43.6 % 40-54 [facility] Influenza virus A and B and SARS-CoV-2 (COVID-19) Ag panel - Upper respiratory specimOrdered By: Lourdes Metz on 07-07-2022 SARS-CoV-2 & FLU Antigen (Rapid) SARS-CoV-2 (COVID 19) [facility] Laboratory - Chemistry and C hemistry - challengeOrdered By: Lourdes Metz on 07-07-2022 CO2 [Moles/Vol] 29.0 mmol/L 21.0-32.0 [facility] Urea nitrogen/Creatinine [Mass ratio] 10.0 mg/mg 10-20 [facility] Laboratory - Hematology and Cell countsOrdered By: Lourdes Metz on 07-07-2022 Erythrocyte distribution width (RBC) [Entitic vol] 41.0 fL 35.1-43.9 [facility] Erythrocyte distribution width (RBC) [Ratio] 14.0 % 11.6-14.6 [facility] Immature granulocytes/100 WBC (Bld) 0.300 % 0.0-0.9 [facility] Comment on above: IG% - Immature Granu locytes (promyelocytes, myelocytes and metamyelocytes) > 1% indicates that a LEFT SHIFT is Present. MCH (RBC) [Entitic mass] 26.6 pg 27.0-32.0 [facility] Nucleated RBC/100 WBC (Bld) [Ratio] 0 % 0-5 [facility] MCHC Auto (RBC) [Mass/Vol]Or dered By: Lourdes Metz on 07-07-2022 MCHC (RBC) [Mass/Vol] 32.8 g/dL 32-36 [facility] No Panel InformationOrdered By: Lourdes Metz on 07-07-2022 D-Dimer Quantitative (PE/DVT) 0.28 FEU/ug/m 0.27-0.49 [facility] Comment on above: NORMAL D-Dimer level (<0.50) indicates no DVT or PE. Estimated Creatinine Clearance Calc 109.25 ml/min [facility] Estimated GFR (MDRD) Amer 117 mL/min >60 [facility] Comment on above: GFR Calc Estimated GFR (MDRD) Non-Af Amer 97 mL/min >60 [facility] Comment on above: Non- GFR Calc Troponin I High Sensitivity 4 pg/mL 3.0-78.0 [facility] Comment on above: Please Note: [place] Units and Gender Specific Reference Ranges. For more information see Policy Stat Procedure [place] High Sensitivity Troponin (TNIH) and attachments. Platelets bldOrdered By: Graham Metz on 07-07-2022 Platelets (Bld) [#/Vol] 260 10*3/uL 150-450 [facility] Serum or plasma calcium koby urement (mass/volume)Ordered By: Lourdes Metz on 07-07-2022 Calcium [Mass/Vol] 8.8 mg/dL 8.5-10.1 [facility] Serum or plasma creatinine m easurement (mass/volume)Ordered By: Lourdes Metz on 07-07-2022 Creatinine [Mass/Vol] 1.00 mg/dL 0.70-1.30 [facility] Comment on above: The validity of the calculated GFR & GFRAA in patients over 70 years has not been determined. Clinical correlation is essential. Serum or plasma urea nitroge n measurement (mass/volume)Ordered By: Lourdes Metz on 07-07-2022 Urea nitrogen [Mass/Vol] 10 mg/dL 7-18 [facility] Thin prep Papanicolaou smear with manual screeningOrdered By: Lourdes Metz on 07-07-2022 Thin prep Papanicolaou smear with manual screening 9 5-15 [facility] Glucose Glucometer (BldC) [M ass/Vol]Ordered By: Dr. Zarate on 07-01-2022 Glucose [Mass/Vol] 85 mg/dL 74-106 [facility] Comment on above: MANAGEMENT OF PATIEN T CARE PER NURSING PROTOCOL Serum or plasma acetone koby urement (mass/volume)Ordered By: Dr. Zarate on 07-01-2022 Acetone [Mass/Vol] MODERATE NEG [facility] Absolute lymphocyte countOrd ered By: Dr. Zarate on 06-30-2022 Lymphocytes Auto (Unsp spec) [#/Vol] 4.64 10*3/uL 0.83-4.51 [facility] Basophil percentageOrdered B y: Dr. Zarate on 06-30-2022 Basophils/100 WBC (Bld) 0.8 % 0-1 [facility] Chloride [Moles/Vol] 97 mmol/L 98-107 [facility] Eosinophils/100 WBC (Bld) 5.2 % 0-5 [facility] Glucose [Mass/Vol] 569 mg/dL 74-106 [facility] Comment on above: Critical Result(s) C alled at: 23:51:55 06/30/2022 by: Jorge A Tamayo TO CURT HORN RN (ED) Results read back by same.Glucose result greater than or equal to 200 mg/dLsuggests DIABETES MELLITUS per A.D.A. criteria. Neutrophils (Bld) [#/Vol] 5.9 10*3/uL 2.0-7.7 [facility] Neutrophils/100 WBC (Bld) 48.9 % 47-70 [facility] Potassium [Moles/Vol] 4.2 mmol/L 3.5-5.1 [facility] Sodium [Moles/Vol] 134 mmol/L 136-145 [facility] WBC (Bld) [#/Vol] 12.1 10*3/uL 4.4-11.0 [facility] Blood erythrocytes count (nu mber/volume)Ordered By: Dr. Zarate on 06-30-2022 RBC (Bld) [#/Vol] 5.32 10*6/uL 4.6-6.2 [facility] Blood hemoglobin measurement (mass/volume)Ordered By: Dr. Zarate on 06-30-2022 Hemoglobin (Bld) [Mass/Vol] 14.0 g/dL 13.0-16.5 [facility] Blood lymphocytes/100 leukoc ytesOrdered By: Dr. Zarate on 06-30-2022 Lymphocytes/100 WBC (Bld) 38.4 % 19-41 [facility] Blood monocytes/100 leukocyt esOrdered By: Dr. Zarate on 06-30-2022 Monocytes/100 WBC (Bld) 6.0 % 0-10 [facility] Blood platelet mean volumeOr dered By: Dr. Zarate on 06-30-2022 Platelet mean volume (Bld) [Entitic vol] 10.6 fL 6.2-12.0 [facility] Determination of erythrocyte mean corpuscular volume (MCV)Ordered By: Dr. Zarate on 06-30-2022 MCV (RBC) [Entitic vol] 80.3 fL 80-94 [facility] Hematocrit Auto (Bld) [Volum e fraction]Ordered By: Dr. Zarate on 06-30-2022 Hematocrit (Bld) [Volume fraction] 42.7 % 40-54 [facility] Laboratory - Chemistry and C hemistry - challengeOrdered By: Dr. Zarate on 06-30-2022 CO2 [Moles/Vol] 22.0 mmol/L 21.0-32.0 [facility] Urea nitrogen/Creatinine [Mass ratio] 15.8 mg/mg 10-20 [facility] Laboratory - Hematology and Cell countsOrdered By: Dr. Zarate on 06-30-2022 Erythrocyte distribution width (RBC) [Entitic vol] 39.7 fL 35.1-43.9 [facility] Erythrocyte distribution width (RBC) [Ratio] 13.7 % 11.6-14.6 [facility] Immature granulocytes/100 WBC (Bld) 0.700 % 0.0-0.9 [facility] Comment on above: IG% - Immature Granu locytes (promyelocytes, myelocytes and metamyelocytes) > 1% indicates that a LEFT SHIFT is Present. MCH (RBC) [Entitic mass] 26.3 pg 27.0-32.0 [facility] Nucleated RBC/100 WBC (Bld) [Ratio] 0 % 0-5 [facility] MCHC Auto (RBC) [Mass/Vol]Or dered By: Dr. Zarate on 06-30-2022 MCHC (RBC) [Mass/Vol] 32.8 g/dL 32-36 [facility] No Panel InformationOrdered By: Dr. Zarate on 06-30-2022 D-Dimer Quantitative (PE/DVT) < 0.27 FEU/ug/m 0.27-0.49 [facility] Comment on above: NORMAL D-Dimer level (<0.50) indicates no DVT or PE. Estimated Creatinine Clearance Calc 97.16 ml/min [facility] Estimated GFR (MDRD) Amer 95 mL/min >60 [facility] Comment on above: GFR Calc Estimated GFR (MDRD) Non-Af Amer 78 mL/min >60 [facility] Comment on above: Non- GFR Calc Troponin I High Sensitivity 4 pg/mL 3.0-78.0 [facility] Comment on above: Please Note: [place] Units and Gender Specific Reference Ranges. For more information see Policy Stat Procedure [place] High Sensitivity Troponin (TNIH) and attachments. Platelets bldOrdered By: Dr. Zarate on 06-30-2022 Platelets (Bld) [#/Vol] 456 10*3/uL 150-450 [facility] Serum or plasma calcium koby urement (mass/volume)Ordered By: Dr. Zarate on 06-30-2022 Calcium [Mass/Vol] 8.8 mg/dL 8.5-10.1 [facility] Serum or plasma creatinine m easurement (mass/volume)Ordered By: Dr. Zarate on 06-30-2022 Creatinine [Mass/Vol] 1.20 mg/dL 0.70-1.30 [facility] Comment on above: The validity of the calculated GFR & GFRAA in patients over 70 years has not been determined. Clinical correlation is essential. Serum or plasma urea nitroge n measurement (mass/volume)Ordered By: Dr. Zarate on 06-30-2022 Urea nitrogen [Mass/Vol] 19 mg/dL 7-18 [facility] Thin prep Papanicolaou smear with manual screeningOrdered By: Dr. Zarate on 06-30-2022 Thin prep Papanicolaou smear with manual screening 15 5-15 [facility] Absolute lymphocyte counton 03-03-2022 Lymphocytes Auto (Unsp spec) [#/Vol] 3.87 10*3/uL 0.83-4.51 [facility] Work Phone: Basophil percentageon 2021 Basophils/100 WBC (Bld) 0.3 % 0-1 [facility] Work Phone: Chloride [Moles/Vol] 113 mmol/L 98-107 [facility] Work Phone: Eosinophils/100 WBC (Bld) 1.7 % 0-5 [facility] Work Phone: Glucose [Mass/Vol] 71 mg/dL 74-106 [facility] Work Phone: Neutrophils (Bld) [#/Vol] 8.9 10*3/uL 2.0-7.7 [facility] Work Phone: Neutrophils/100 WBC (Bld) 62.2 % 47-70 [facility] Work Phone: Potassium [Moles/Vol] 3.6 mmol/L 3.5-5.1 [facility] Work Phone: Sodium [Moles/Vol] 142 mmol/L 136-145 [facility] Work Phone: WBC (Bld) [#/Vol] 14.3 10*3/uL 4.4-11.0 [facility] Work Phone: Blood erythrocytes count (nu mber/volume)on 03-03-2022 RBC (Bld) [#/Vol] 4.58 10*6/uL 4.6-6.2 [facility] Work Phone: Blood hemoglobin measurement (mass/volume)on 03-03-2022 Hemoglobin (Bld) [Mass/Vol] 12.6 g/dL 13.0-16.5 [facility] Work Phone: Blood lymphocytes/100 leukoc yteson 03-03-2022 Lymphocytes/100 WBC (Bld) 27.0 % 19-41 [facility] Work Phone: Blood monocytes/100 leukocyt eson 03-03-2022 Monocytes/100 WBC (Bld) 8.2 % 0-10 [facility] Work Phone: Blood platelet mean volumeon 03-03-2022 Platelet mean volume (Bld) [Entitic vol] 9.4 fL 6.2-12.0 [facility] Work Phone: Determination of erythrocyte mean corpuscular volume (MCV)on 03-03-2022 MCV (RBC) [Entitic vol] 83.6 fL 80-94 [facility] Work Phone: Comment on above: Delta: 91.7 on 03/02-1026 Glucose Glucometer (BldC) [M ass/Vol]on 03-03-2022 Glucose [Mass/Vol] 224 mg/dL 74-106 [facility] Work Phone: Comment on above: MANAGEMENT OF PATIEN T CARE PER NURSING PROTOCOL Hematocrit Auto (Bld) [Volum e fraction]on 03-03-2022 Hematocrit (Bld) [Volume fraction] 38.3 % 40-54 [facility] Work Phone: Laboratory - Chemistry and C hemistry - challengeon 03-03-2022 CO2 [Moles/Vol] 21.0 mmol/L 21.0-32.0 [facility] Work Phone: Urea nitrogen/Creatinine [Mass ratio] 14.9 mg/mg 10-20 [facility] Work Phone: Laboratory - Hematology and Cell countson 03-03-2022 Erythrocyte distribution width (RBC) [Entitic vol] 43.5 fL 35.1-43.9 [facility] Work Phone: Erythrocyte distribution width (RBC) [Ratio] 14.3 % 11.6-14.6 [facility] Work Phone: Immature granulocytes/100 WBC (Bld) 0.600 % 0.0-0.9 [facility] Work Phone: Comment on above: IG% - Immature Granu locytes (promyelocytes, myelocytes and metamyelocytes) > 1% indicates that a LEFT SHIFT is Present. MCH (RBC) [Entitic mass] 27.5 pg 27.0-32.0 [facility] Work Phone: Nucleated RBC/100 WBC (Bld) [Ratio] 0 % 0-5 [facility] Work Phone: MCHC Auto (RBC) [Mass/Vol]on 03-03-2022 MCHC (RBC) [Mass/Vol] 32.9 g/dL 32-36 [facility] Work Phone: Comment on above: Delta: 29.6 on 03/02-1026 No Panel Informationon 03-03 Estimated Creatinine Clearance Calc 111.61 ml/min [facility] Work Phone: Estimated GFR (MDRD) Amer 150 mL/min >60 [facility] Work Phone: Comment on above: GFR Calc Estimated GFR (MDRD) Non-Af Amer 124 mL/min >60 [facility] Work Phone: Comment on above: Non- GFR Calc Platelets bldon 03-03-2022 Platelets (Bld) [#/Vol] 345 10*3/uL 150-450 [facility] Work Phone: Serum or plasma calcium koby urement (mass/volume)on 03-03-2022 Calcium [Mass/Vol] 7.9 mg/dL 8.5-10.[address] [facility] Work Phone: Serum or plasma creatinine m easurement (mass/volume)on 03-03-2022 Creatinine [Mass/Vol] 0.81 mg/dL 0.70-1.30 [facility] Work Phone: Comment on above: The validity of the calculated GFR & GFRAA in patients over 70 years has not been determined. Clinical correlation is essential. Serum or plasma urea nitroge n measurement (mass/volume)on 03-03-2022 Urea nitrogen [Mass/Vol] 12 mg/dL 7-18 [facility] Work Phone: Thin prep Papanicolaou smear with manual screeningon 03-03-2022 Thin prep Papanicolaou smear with manual screening 8 5-15 [facility] Work Phone: Absolute lymphocyte counton 2022 Lymphocytes Auto (Unsp spec) [#/Vol] 4.87 10*3/uL 0.83-4.51 [facility] Work Phone: Basophil percentageon 2021 Basophil percentage 0 SEEN /hpf 0-5 [facility] Work Phone: Basophil percentage 9.1 mg/dL 2.5-4.9 [facility] Work Phone: Comment on above: Critical Result(s) C alled at: 11:23:45 2022 by: Renita Butt to Jd. Results read back by same. Basophils/100 WBC (Bld) 0.9 % 0-1 [facility] Work Phone: Bilirubin [Mass/Vol] 0.60 mg/dL 0.20-1.00 [facility] Work Phone: Comment on above: For patients on eltr ombopag therapy, use of Dimension [place] TBIL is not recommended. Chloride [Moles/Vol] 86 mmol/L 98-107 [facility] Work Phone: Eosinophils/100 WBC (Bld) 0.8 % 0-5 [facility] Work Phone: Glucose [Mass/Vol] 852 mg/dL 74-106 [facility] Work Phone: Comment on above: Critical Result(s) C alled at: 11:23:45 2022 by: Renita Butt to Jd. Results read back by same.Glucose result greater than or equal to 200 mg/dLsuggests DIABETES MELLITUS per A.D.A. criteria. Neutrophils (Bld) [#/Vol] 11.8 10*3/uL 2.0-7.7 [facility] Work Phone: Neutrophils/100 WBC (Bld) 64.6 % 47-70 [facility] Work Phone: Potassium [Moles/Vol] 5.2 mmol/L 3.5-5.1 [facility] Work Phone: Protein [Mass/Vol] 9.0 g/dL 6.4-8.2 [facility] Work Phone: Sodium [Moles/Vol] 128 mmol/L 136-145 [facility] Work Phone: WBC (Bld) [#/Vol] 18.3 10*3/uL 4.4-11.0 [facility] Work Phone: Bilirubin Test strip Ql (U)o n 2022 Bilirubin Ql (U) Negative Negative [facility] Work Phone: Blood erythrocytes count (nu mber/volume)on 2022 RBC (Bld) [#/Vol] 6.11 10*6/uL 4.6-6.2 [facility] Work Phone: Blood hemoglobin measurement (mass/volume)on 2022 Hemoglobin (Bld) [Mass/Vol] 16.6 g/dL 13.0-16.5 [facility] Work Phone: Blood lymphocytes/100 leukoc yteson 2022 Lymphocytes/100 WBC (Bld) 26.6 % 19-41 [facility] Work Phone: Blood monocytes/100 leukocyt eson 2022 Monocytes/100 WBC (Bld) 5.5 % 0-10 [facility] Work Phone: Blood platelet mean volumeon 2022 Platelet mean volume (Bld) [Entitic vol] 10.7 fL 6.2-12.0 [facility] Work Phone: Determination of erythrocyte mean corpuscular volume (MCV)on 2022 MCV (RBC) [Entitic vol] 91.7 fL 80-94 [facility] Work Phone: Hematocrit Auto (Bld) [Volum e fraction]on 2022 Hematocrit (Bld) [Volume fraction] 56.0 % 40-54 [facility] Work Phone: Ketones Test strip Ql (U)on 2022 Ketones Ql (U) 150 mg/dl Negative [facility] Work Phone: Comment on above: CRITICAL VALUE VERIF IED. CALLED TO ODETTE MCADAMS RN (ICU)03/02/22 1845 Ney Navarro.RESULTS READ BACK BY SAME . CRITICAL VALUE *H Laboratory - Chemistry and C hemistry - challengeon 2022 ALP [Catalytic activity/Vol] 288 U/L 45-117 [facility] Work Phone: ALT [Catalytic activity/Vol] 62 U/L 16-61 [facility] Work Phone: CK [Catalytic activity/Vol] 44 U/L 39-308 [facility] Work Phone: CO2 [Moles/Vol] 10.0 mmol/L 21.0-32.0 [facility] Work Phone: Globulin (S) [Mass/Vol] 4.9 g/dL 2.2-4.2 [facility] Work Phone: Magnesium [Mass/Vol] 2.6 mg/dL 1.6-2.6 [facility] Work Phone: Urea nitrogen/Creatinine [Mass ratio] 17.3 mg/mg 10-20 [facility] Work Phone: Laboratory - Hematology and Cell countson 2022 Erythrocyte distribution width (RBC) [Entitic vol] 47.6 fL 35.1-43.9 [facility] Work Phone: Erythrocyte distribution width (RBC) [Ratio] 14.2 % 11.6-14.6 [facility] Work Phone: Immature granulocytes/100 WBC (Bld) 1.600 % 0.0-0.9 [facility] Work Phone: Comment on above: IG% - Immature Granu locytes (promyelocytes, myelocytes and metamyelocytes) > 1% indicates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 microalbumin mg/dL Invalid Interpretation Code [facility] Work Phone: Lab Report: Hemoglobin A1con 11-12-2016 HbA1c 12.0 % High 4.2-6.3 [facility] Work Phone: Lab Report: Microalb:Creat R atio,Random URon 11-12-2016 ACR (microalbumin/creatinin e) ratio Test not performed mg/g CRE Invalid Interpretation Code <30 mg/g CRE [facility] Work Phone: Albumin/Creatinine DL <= 20 mg/L Ratio (U) Test not performed mg/g CRE <30 mg/g CRE [facility] Work Phone: Urine, creatinine 38.10 mg/dL Invalid Interpretation Code NO RANGE EST. [facility] Work Phone: Urine, microalbumin < 5.0 mg/L Invalid Interpretation Code NO RANGE EST. [facility] Work Phone: Office Visit: Diabetes- [facility]on 11-12-2016 Adolescent depression screening assessment Adolescent depression screening assessment Invalid Interpretation Code [facility] Work Phone: Adult depression screening assessment Adolescent depression screening assessment [facility] Work Phone: Documentation of current medications (procedure) Done Invalid Interpretation Code [facility] Work Phone: Fall risk assessment No Invalid Interpretation Code [facility] Work Phone: Protein mass conc yes [facility] Work Phone: Smoking cessation education (procedure) yes Invalid Interpretation Code [facility] Work Phone: Tobacco smoking status [facility] Current Invalid Interpretation Code [facility] Work Phone: Tobacco smoking status [facility] Current every day smoker [facility] Work Phone: Tobacco use [facility] Current every day smoker Invalid Interpretation Code [facility] Work Phone: Influenza virus A and B and SARS-CoV-2 (COVID-19) Ag panel - Upper respiratory specim SARS-CoV-2 & FLU Antigen (Rapid) SARS-CoV-2 (COVID 19) [facility] Work Phone: Laboratory - Microbiology an d Antimicrobial susceptibility Respiratory pathogens DNA and RNA 12b panel LM+probe (Unsp spec) [facility] Work Phone: Throat Streptococcus pyogene s antigen detection by immunofluorescence S. pyogenes Ag IF Ql (Throat) [facility] Work Phone: Vital Signs Date Time Vital Sign Value Performing Clinician Facility 02-27-2025 14:53-0400 Body temperature 97.9 [degF] No Primary Care Physician [facility] 02-27-2025 14:53-0400 Diastolic blood pressure 78 mm[Hg] No Primary Care Physician [facility] 02-27-2025 14:53-0400 Heart rate 99 /min No Primary Care Physician [facility] 02-27-2025 14:53-0400 Respiratory rate 19 /min No Primary Care Physician [facility] 02-27-2025 14:53-0400 SaO2% (BldA) [Mass fraction] 99 % No Primary Care Physician [facility] 02-27-2025 14:53-0400 Systolic blood pressure 101 mm[Hg] No Primary Care Physician [facility] 02-27-2025 12:26-0400 Body height 182.88 cm No Primary Care Physician [facility] 02-27-2025 12:26-0400 Body mass index (BMI) [Ratio] 18.3 kg/m2 No Primary Care Physician [facility] 02-27-2025 12:26-0400 Body weight 61.5 kg No Primary Care Physician [facility] 02-05-2025 14:00-0400 Diastolic blood pressure 76 mm[Hg] Dr. Keisha Handy DO Work Phone: 5(006)256-036763 [place] [address] 02-05-2025 14:00-0400 Heart rate 89 /min Dr. Keisha Handy DO Work Phone: 5(583)179-670663 [place] [address] 02-05-2025 14:00-0400 Respiratory rate 18 /min Dr. Keisha Handy DO Work Phone: 0(482)517-662763 [place] [address] 02-05-2025 14:00-0400 SaO2% (BldA) [Mass fraction] 98 % Dr. Keisha Handy DO Work Phone: 9(428)333-104763 [place] [address] 02-05-2025 10:15-0400 Body height 182.[address] Keisha Handy DO Work Phone: 8(852)365-986263 [place] [address] 02-05-2025 10:15-0400 Body weight 61.[address] Keisha Handy DO Work Phone: 3(734)646-992263 [place] [address] 02-05-2025 05:48-0400 Body mass index (BMI) [Ratio] 18.3 kg/m2 Dr. Keisha Handy DO Work Phone: 7(037)184-603563 [place] [address] 02-05-2025 04:00-0400 Diastolic blood pressure 75 mm[Hg] Dr. Keisha Handy DO Work Phone: 4(257)482-401063 [place] [address] 02-05-2025 04:00-0400 Heart rate 113 /min Dr. Keisha Handy DO Work Phone: 9(625)187-502463 [place] [address] 02-05-2025 04:00-0400 Respiratory rate 20 /min Dr. Keisha Handy DO Work Phone: 5(172)161-924363 [place] [address] 02-05-2025 04:00-0400 SaO2% (BldA) [Mass fraction] 100 % Dr. Keisha Handy DO Work Phone: 3(996)337-823363 [place] [address] 02-05-2025 04:00-0400 Systolic blood pressure 118 mm[Hg] Dr. Keisha Handy DO Work Phone: 6(913)911-287563 [place] [address] 02-05-2025 03:46-0400 Body temperature 97.9 [degF] Dr. Keisha Handy DO Work Phone: 9(673)840-197563 [place] [address] 02-05-2025 02:20-0400 Body height 182.[address] Keisha Handy DO Work Phone: 0(587)338-672963 [place] [address] 02-05-2025 02:20-0400 Body mass index (BMI) [Ratio] 18.3 kg/m2 Dr. Keisha Handy DO Work Phone: 8(567)484-427063 [place] [address] 02-05-2025 02:20-0400 Body weight 61.[address] Keisha Handy DO Work Phone: 2(348)805-009863 [place] [address] 01-26-2025 17:27-0400 Body temperature 97.8 [degF] Dr. Keisha Handy DO Work Phone: 1(517)971-731163 [place] [address] 01-26-2025 17:27-0400 Diastolic blood pressure 95 mm[Hg] Dr. Keisha Handy DO Work Phone: 8(135)990-031463 [place] [address] 01-26-2025 17:27-0400 Heart rate 97 /min Dr. Keisha Handy DO Work Phone: 6(285)360-449963 [place] [address] 01-26-2025 17:27-0400 Respiratory rate 14 /min Dr. Keisha Handy DO Work Phone: 1(653)624-209863 [place] [address] 01-26-2025 17:27-0400 SaO2% (BldA) [Mass fraction] 99 % Dr. Keisha Handy DO Work Phone: 3(528)690-087663 [place] [address] 01-26-2025 17:27-0400 Systolic blood pressure 125 mm[Hg] Dr. Keisha Handy DO Work Phone: 0(627)060-460463 [place] [address] 01-26-2025 11:24-0400 Body height 182.[address] Keisha Handy DO Work Phone: 7(931)600-078863 [place] [address] 01-26-2025 11:24-0400 Body mass index (BMI) [Ratio] 18.6 kg/m2 Dr. Keisha Handy DO Work Phone: 9(583)818-116163 [place] [address] 01-26-2025 11:24-0400 Body weight 62.[address] Keisha Handy DO Work Phone: 8(833)199-224763 [place] [address] 12-14-2024 02:20-0400 Body temperature 98.4 [degF] Dr. Keisha Handy DO Work Phone: 1(994)486-227163 [place] [address] 12-14-2024 02:20-0400 Diastolic blood pressure 68 mm[Hg] Dr. Keisha Handy DO Work Phone: 5(262)991-124963 [place] [address] 12-14-2024 02:20-0400 Heart rate 113 /min Dr. Keisha Handy DO Work Phone: 5(005)092-644763 [place] [address] 12-14-2024 02:20-0400 Respiratory rate 14 /min Dr. Keisha Handy DO Work Phone: 3(039)303-236263 [place] [address] 12-14-2024 02:20-0400 SaO2% (BldA) [Mass fraction] 96 % Dr. Keisha Handy DO Work Phone: 4(042)191-519663 [place] [address] 12-14-2024 02:20-0400 Systolic blood pressure 112 mm[Hg] Dr. Keisha Handy DO Work Phone: 5(504)638-581563 [place] [address] 12-13-2024 21:12-0400 Body height 187.[address] Keisha Handy DO Work Phone: 5(275)249-154863 [place] [address] 12-13-2024 21:12-0400 Body mass index (BMI) [Ratio] 14.6 kg/m2 Dr. Keisha Handy DO Work Phone: 8(933)979-237563 [place] [address] 12-13-2024 21:12-0400 Body weight 51.[address] Keisha Handy DO Work Phone: 5(248)438-092163 [place] [address] 12-12-2024 12:36-0400 Body mass index (BMI) [Ratio] 18.6 kg/m2 Dr. Keisha Handy DO Work Phone: 4(384)841-710163 [place] [address] 12-12-2024 12:36-0400 Body temperature 97 [degF] Dr. Keisha Handy DO Work Phone: 9(664)136-564963 [place] [address] 12-12-2024 12:36-0400 Body weight 62.[address] Keisha Handy DO Work Phone: 3(180)880-964863 [place] [address] 12-12-2024 12:36-0400 Diastolic blood pressure 82 mm[Hg] Dr. Keisha Handy DO Work Phone: 1(209)570-926663 [place] [address] 12-12-2024 12:36-0400 Heart rate 116 /min Dr. Keisha Handy DO Work Phone: 0(209)442-184163 [place] [address] 12-12-2024 12:36-0400 Respiratory rate 18 /min Dr. Keisha Handy DO Work Phone: 1(631)431-884763 [place] [address] 12-12-2024 12:36-0400 SaO2% (BldA) [Mass fraction] 100 % Dr. Keisha Handy DO Work Phone: 2(279)507-296163 [place] [address] 12-12-2024 12:36-0400 Systolic blood pressure 126 mm[Hg] Dr. Keisha Handy DO Work Phone: 4(190)236-958363 [place] [address] 11-11-2024 19:18-0400 Body temperature 97.8 [degF] Dr. Keisha Handy DO Work Phone: 2(517)124-067963 [place] [address] 11-11-2024 19:18-0400 Diastolic blood pressure 86 mm[Hg] Dr. Keisha Handy DO Work Phone: 9(258)008-465163 [place] [address] 11-11-2024 19:18-0400 Heart rate 102 /min Dr. Keisha Handy DO Work Phone: 7(336)914-559063 [place] [address] 11-11-2024 19:18-0400 Respiratory rate 18 /min Dr. Keisha Handy DO Work Phone: 0(657)757-074663 [place] [address] 11-11-2024 19:18-0400 SaO2% (BldA) [Mass fraction] 98 % Dr. Keisha Handy DO Work Phone: 4(751)376-620563 [place] [address] 11-11-2024 19:18-0400 Systolic blood pressure 128 mm[Hg] Dr. Keisha Handy DO Work Phone: [facility] 11-11-2024 17:46-0400 Body height 182.[address] Keisha Handy DO Work Phone: 3(886)144-426763 [place] [address] 11-11-2024 17:46-0400 Body mass index (BMI) [Ratio] 18.7 kg/m2 Dr. Keisha Handy DO Work Phone: 6(399)026-397063 [place] [address] 11-11-2024 17:46-0400 Body weight 62.[address] Keisha Handy DO Work Phone: 4(270)789-731663 [place] [address] 10-19-2024 05:19-0400 Body temperature 97.8 [degF] Dr. Keisha aHndy DO Work Phone: 1(055)778-202063 [place] [address] 10-19-2024 05:19-0400 Diastolic blood pressure 81 mm[Hg] Dr. Keisha Handy DO Work Phone: 9(453)538-406163 [place] [address] 10-19-2024 05:19-0400 Heart rate 95 /min Dr. Keisha Handy DO Work Phone: 8(078)797-663363 [place] [address] 10-19-2024 05:19-0400 Respiratory rate 16 /min Dr. Keisha Handy DO Work Phone: 6(224)651-425263 [place] [address] 10-19-2024 05:19-0400 SaO2% (BldA) [Mass fraction] 99 % Dr. Keisha Handy DO Work Phone: 3(932)516-583963 [place] [address] 10-19-2024 05:19-0400 Systolic blood pressure 127 mm[Hg] Dr. Keisha Handy DO Work Phone: 4(621)139-627363 [place] [address] 10-19-2024 00:09-0400 Body height 182.[address] Keisha Handy DO Work Phone: 9(730)941-047563 [place] [address] 10-19-2024 00:09-0400 Body mass index (BMI) [Ratio] 19.5 kg/m2 Dr. Keisha Handy DO Work Phone: [facility] 10-19-2024 00:09-0400 Body weight 65.[address] Keisha Handy DO Work Phone: [facility] 01-04-2023 00:24-0400 Diastolic blood pressure 81 mm[Hg] [facility] 01-04-2023 00:24-0400 Heart rate 87 /min MD [facility] 01-04-2023 00:24-0400 Respiratory rate 17 /min MD [facility] 01-04-2023 00:24-0400 SaO2% (BldA) [Mass fraction] 100 % MD [facility] 01-04-2023 00:24-0400 Systolic blood pressure 117 mm[Hg] MD [facility] 01-03-2023 22:18-0400 Body height 182.88 cm [facility] 01-03-2023 22:18-0400 Body mass index (BMI) [Ratio] 19.9 kg/m2 MD [facility] 01-03-2023 22:18-0400 Body temperature 96.6 [degF] MD [facility] 01-03-2023 22:18-0400 Body weight 66.7 kg MD [facility] 12-09-2022 21:44-0400 Heart rate 110 /min MD [facility] 12-09-2022 21:44-0400 Respiratory rate 18 /min MD [facility] 12-09-2022 20:08-0400 SaO2% (BldA) [Mass fraction] 99 % MD [facility] 12-09-2022 18:04-0400 Body mass index (BMI) [Ratio] 20.4 kg/m2 MD [facility] 12-09-2022 18:04-0400 Body weight 62.7 kg [facility] 12-09-2022 17:39-0400 Body height 175.26 cm MD [facility] 12-09-2022 17:39-0400 Body temperature 97.9 [degF] [facility] 12-09-2022 17:39-0400 Diastolic blood pressure 63 mm[Hg] [facility] 12-09-2022 17:39-0400 Systolic blood pressure 94 mm[Hg] [facility] 12-03-2022 22:45-0400 Diastolic blood pressure 84 mm[Hg] MD [facility] 12-03-2022 22:45-0400 Heart rate 104 /min MD [facility] 12-03-2022 22:45-0400 Respiratory rate 18 /min MD [facility] 12-03-2022 22:45-0400 SaO2% (BldA) [Mass fraction] 97 % MD [facility] 12-03-2022 22:45-0400 Systolic blood pressure 127 mm[Hg] MD [facility] 12-03-2022 20:03-0400 Body height 172.72 cm MD [facility] 12-03-2022 20:03-0400 Body mass index (BMI) [Ratio] 22 kg/m2 [facility] 12-03-2022 20:03-0400 Body temperature 97.9 [degF] MD [facility] 12-03-2022 20:03-0400 Body weight 65.7 kg [facility] 11-17-2022 14:00-0400 Heart rate 115 /min MD [facility] 11-17-2022 14:00-0400 Respiratory rate 13 /min MD [facility] 11-17-2022 14:00-0400 SaO2% (BldA) [Mass fraction] 97 % [facility] 11-17-2022 00:52-0400 Body mass index (BMI) [Ratio] 18.1 kg/m2 MD De[facility] 11-17-2022 00:52-0400 Body weight 60.7 kg MD [facility] 11-17-2022 00:10-0400 Body height 182.88 cm MD [facility] 11-17-2022 00:10-0400 Body temperature 97.9 [degF] MD [facility] 11-17-2022 00:10-0400 Diastolic blood pressure 62 mm[Hg] MD [facility] 11-17-2022 00:10-0400 Systolic blood pressure 120 mm[Hg] MD [facility] 10-13-2022 06:21-0500 Diastolic blood pressure 90 mm[Hg] MD [facility] 10-13-2022 06:21-0500 Systolic blood pressure 129 mm[Hg] MD [facility] 10-13-2022 03:49-0500 Body height 162.56 cm MD [facility] 10-13-2022 03:49-0500 Body mass index (BMI) [Ratio] 24.4 kg/m2 MD [facility] 10-13-2022 03:49-0500 Body temperature 97.7 [degF] MD [facility] 10-13-2022 03:49-0500 Body weight 64.6 kg MD [facility] 10-13-2022 03:49-0500 Heart rate 120 /min MD [facility] 10-13-2022 03:49-0500 Respiratory rate 14 /min MD [facility] 10-13-2022 03:49-0500 SaO2% (BldA) [Mass fraction] 99 % MD [facility] 08-24-2022 23:11-0500 Diastolic blood pressure 82 mm[Hg] MD [facility] 08-24-2022 23:11-0500 Heart rate 120 /min MD [facility] 08-24-2022 23:11-0500 SaO2% (BldA) [Mass fraction] 99 % MD [facility] 08-24-2022 23:11-0500 Systolic blood pressure 126 mm[Hg] MD [facility] 08-24-2022 21:15-0500 Body temperature 98 [degF] MD [facility] 08-24-2022 21:15-0500 Respiratory rate 16 /min MD [facility] 08-24-2022 21:12-0500 Body height 162.56 cm MD [facility] 08-24-2022 21:12-0500 Body mass index (BMI) [Ratio] 24.7 kg/m2 MD [facility] 08-24-2022 21:12-0500 Body weight 65.4 kg MD [facility] 08-20-2022 14:36-0500 Body temperature 97.8 [degF] MD [facility] 08-20-2022 14:36-0500 Diastolic blood pressure 77 mm[Hg] MD [facility] 08-20-2022 14:36-0500 Heart rate 108 /min MD [facility] 08-20-2022 14:36-0500 Respiratory rate 16 /min MD [facility] 08-20-2022 14:36-0500 SaO2% (BldA) [Mass fraction] 97 % MD [facility] 08-20-2022 14:36-0500 Systolic blood pressure 111 mm[Hg] MD [facility] 08-20-2022 06:00-0500 Body weight 64.6 kg [facility] 08-19-2022 09:33-0500 Body height 182.88 cm [facility] Work Phone: 08-18-2022 15:00-0500 Inhaled oxygen flow rate 2 L/min [facility] 08-18-2022 11:46-0500 Body mass index (BMI) [Ratio] 20.3 kg/m2 MD [facility] 07-07-2022 20:35-0500 Diastolic blood pressure 93 mm[Hg] MD [facility] 07-07-2022 20:35-0500 Heart rate 114 /min MD [facility] 07-07-2022 20:35-0500 Respiratory rate 15 /min MD [facility] 07-07-2022 20:35-0500 SaO2% (BldA) [Mass fraction] 96 % MD [facility] 07-07-2022 20:35-0500 Systolic blood pressure 127 mm[Hg] MD [facility] 07-07-2022 14:41-0500 Body mass index (BMI) [Ratio] 23.3 kg/m2 MD [facility] 07-07-2022 14:41-0500 Body temperature 98 [degF] MD [facility] 07-07-2022 14:41-0500 Body weight 69.42 kg MD [facility] 07-01-2022 03:13-0500 Diastolic blood pressure 85 mm[Hg] MD [facility] 07-01-2022 03:13-0500 Heart rate 135 /min MD [facility] 07-01-2022 03:13-0500 Respiratory rate 16 /min MD [facility] 07-01-2022 03:13-0500 SaO2% (BldA) [Mass fraction] 100 % MD [facility] 07-01-2022 03:13-0500 Systolic blood pressure 123 mm[Hg] MD [facility] 06-30-2022 22:31-0500 Body temperature 97.4 [degF] MD [facility] 06-30-2022 22:26-0500 Body height 177.8 cm [facility] Work Phone: 06-30-2022 22:26-0500 Body mass index (BMI) [Ratio] 23.1 kg/m2 MD [facility] 06-30-2022 22:26-0500 Body weight 73.3 kg [facility] 03-03-2022 08:30-0400 SaO2% (BldA) [Mass fraction] 98 % MD [facility] Work Phone: 03-03-2022 08:00-0400 Body temperature 97.9 [degF] [facility] Work [facility] 03-03-2022 08:00-0400 Diastolic blood pressure 67 mm[Hg] MD [facility] Work Phone: 03-03-2022 08:00-0400 Heart rate 101 /min MD [facility] Work Phone: 03-03-2022 08:00-0400 Respiratory rate 18 /min MD [facility] Work Phone: 03-03-2022 08:00-0400 Systolic blood pressure 111 mm[Hg] MD [facility] Work Phone: 03-03-2022 05:12-0400 Body weight 56.8 kg [facility] Work Phone: 2022 15:50-0400 Body height 177.8 cm MD [facility] Work Phone: 2022 12:30-0400 Body mass index (BMI) [Ratio] 17.9 kg/m2 MD [facility] Work Phone: 2022 12:00-0400 Body temperature 97.7 [degF] [facility] Work Phone: 2022 12:00-0400 Diastolic blood pressure 93 mm[Hg] [facility] Work Phone: 2022 12:00-0400 Heart rate 160 /min [facility] Work Phone: 2022 12:00-0400 Respiratory rate 22 /min [facility] Work Phone: 2022 12:00-0400 SaO2% (BldA) [Mass fraction] 98 % [facility] Work Phone: 2022 12:00-0400 Systolic blood pressure 138 mm[Hg] [facility] Work Phone: 2022 10:13-0400 Body height 177.8 cm [facility] Work Phone: 2022 10:13-0400 Body mass index (BMI) [Ratio] 19.3 kg/m2 [facility] Work Phone: 2022 10:13-0400 Body weight 61.23 kg [facility] Work Phone: 01-31-2022 10:10-0400 Body height 177.8 cm [facility] Work Phone: 01-31-2022 10:10-0400 Body mass index (BMI) [Ratio] 18.6 kg/m2 [facility] Work Phone: 01-31-2022 10:10-0400 Body temperature 98 [degF] [facility] Work Phone: 01-31-2022 10:10-0400 Body weight 58.96 kg [facility] [facility] Work Phone: 01-31-2022 10:10-0400 Diastolic blood pressure 80 mm[Hg] [facility] Work Phone: 01-31-2022 10:10-0400 Heart rate 75 /min [facility] Work Phone: 01-31-2022 10:10-0400 Respiratory rate 16 /min [facility] Work Phone: 01-31-2022 10:10-0400 SaO2% (BldA) [Mass fraction] 99 % [facility] Work Phone: 01-31-2022 10:10-0400 Systolic blood pressure 92 mm[Hg] [facility] Work Phone: 01-19-2022 09:41-0400 Body mass index (BMI) [Ratio] 16.5 kg/m2 [facility] Work Phone: 01-19-2022 09:41-0400 Body temperature 97.9 [degF] [facility] Work Phone: 01-19-2022 09:41-0400 Body weight 52.16 kg [facility] Work Phone: 01-19-2022 09:41-0400 Diastolic blood pressure 70 mm[Hg] [facility] Work Phone: 01-19-2022 09:41-0400 Heart rate 106 /min [facility] Work Phone: 01-19-2022 09:41-0400 Respiratory rate 16 /min [facility] Work Phone: 01-19-2022 09:41-0400 SaO2% (BldA) [Mass fraction] 97 % [facility] Work Phone: 01-19-2022 09:41-0400 Systolic blood pressure 105 mm[Hg] [facility] Work Phone: 01-15-2017 03:55-0400 Body surface area Derived from formula 240.08 mL/min Ge Stafford MD [facility] Work Phone: 12-10-2016 16:10-0400 BP Diastolic 66 mm[Hg] Edwina Quintero NP [facility] Work Phone: 12-10-2016 16:10-0400 BP Systolic 104 mm[Hg] Edwina Quintero NP [facility] Work Phone: 12-10-2016 16:10-0400 Pulse (Heart Rate) 86 /min Edwina Quintero NP [facility] Work Phone: 12-10-2016 16:10-0400 Respiratory Rate 14 /min Edwina Quintero NP [facility] Work Phone: 12-10-2016 16:10-0400 Weight 67.13 kg Edwina Quintero NP [facility] Work Phone: 11-12-2016 15:36-0400 BMI (Body Mass Index) 24.79 kg/m2 Edwina Quintero ASSISTANT FARM OPERATIONS MANAGER [facility] Work Phone: 11-12-2016 15:36-0400 Body Temperature 98.01 [degF] Edwina Quintero ASSISTANT FARM OPERATIONS MANAGER [facility] Work Phone: 11-12-2016 15:36-0400 Body Temperature 98 [degF] Edwina Quintero ASSISTANT FARM OPERATIONS MANAGER [facility] Work Phone: 11-12-2016 15:36-0400 BP Diastolic 69 mm[Hg] Edwina Quintero ASSISTANT FARM OPERATIONS MANAGER [facility] Work Phone: 11-12-2016 15:36-0400 BP Systolic 105 mm[Hg] Edwina Quintero ASSISTANT FARM OPERATIONS MANAGER [facility] Work Phone: 11-12-2016 15:36-0400 BSA (Body Surface Area) 1.75 m2 Edwina Quintero ASSISTANT FARM OPERATIONS MANAGER [facility] Work Phone: 11-12-2016 15:36-0400 Height 165.1 cm Edwina Quintero ASSISTANT FARM OPERATIONS MANAGER [facility] Work Phone: 11-12-2016 15:36-0400 Pulse (Heart Rate) 90 /min Edwina Quintero NP [facility] Work Phone: 11-12-2016 15:36-0400 Pulse Oximetry 98 % Edwina Quintero NP [facility] Work Phone: 11-12-2016 15:36-0400 Respiratory Rate 14 /min Edwina Quintero ASSISTANT FARM OPERATIONS MANAGER [facility] Work Phone: 11-12-2016 15:36-0400 Weight 67.58 kg Edwina Ingrid ASSISTANT FARM OPERATIONS MANAGER [facility] Work Phone: 11-12-2016 15:36-0400 Weight 67.59 kg Edwina Belleliam ASSISTANT FARM OPERATIONS MANAGER [facility] Work Phone: Encounters Encounter Date Encounter Type Care Provider Facility Start: 02-27-2025 Evaluation and manag ement of inpatient Dr. Marcelina Erickson MD -Intensive Care Unit Work Phone: Start: 02-05-2025 End: 02-05-2025 ambulatory Sarah Oh Facility:[facility] Start: 02-05-2025 End: 02-05-2025 Evaluation and management of inpatient Dr. Sarah Oh MD -Intensive Care Unit Work Phone: Start: 01-26-2025 End: 01-26-2025 Emergency department patient visit Dr. Keisha Handy DO Work Phone: -Emergency Department Work Phone: Start: 12-18-2024 ambulatory Zebulun Beam VSC Facili ty:[facility] Start: 12-13-2024 End: 12-14-2024 Emergency department [...] Work Phone: Start: 10-10-2024 End: 10-10-2024 ambulatory Facility:[facility] Start: 01-03-2023 End: 01-04-2023 Emergency department patient visit MD Deangelo Noel [facility]-Emergency Department Start: 12-09-2022 End: 12-09-2022 Emergency department patient visit MD Deangelo Noel [facility]-Emergency Department Start: 12-03-2022 End: 12-03-2022 Emergency department patient visit MD Deangelo Noel [facility]-Emergency Department Start: 11-17-2022 End: 11-17-2022 Emergency department patient visit MD Deangelo Noel [facility]-Emergency Department Start: 10-13-2022 Non-patient / [facility] Start: 10-13-2022 End: 10-13-2022 ambulatory MD [facility] Work Phone: Start: 10-13-2022 End: 10-13-2022 Patient encounter procedure MD Bright [facility] Start: 10-13-2022 End: 10-13-2022 [facility] Start: 10-05-2022 Orders Only Deangelo garcía MD Work Phone: [facility] Start: 10-03-2022 Telephone encounter Deangelo canales MD Work Phone: [facility] Comment on above: Letter Start: 09-22-2022 Telephone encounter Phillip jiménez APRN.HEAD OF BUSINESS DEVELOPMENT Work Phone: [facility] Comment on above: Appointment Start: 08-24-2022 End: 08-24-2022 Emergency department [facility] Start: 08-21-2022 Refill Phillip HINOJOSA RN.HEAD OF BUSINESS DEVELOPMENT Work Phone: [facility] Comment on above: Refill Request Start: 08-20-2022 Non-patient / Non-visit MD Deangelo lowry [facility] Start: 08-19-2022 [facility] Start: 08-18-2022 Non-patient / [facility] Start: 08-18-2022 End: 08-20-2022 Evaluation and management of inpatient MD Bright [facility]-Medical Surgical 2 Start: 07-09-2022 Telephone encounter Deangelo canales MD Work Phone: [facility] Comment on above: Insurance Authorizat ion ([employer] ) Start: 07-07-2022 End: 07-07-2022 Emergency department patient visit MD Bright [facility]-Emergency Department Start: 07-07-2022 End: 07-07-2022 Patient encounter procedure Isaiah Caldera APRN.HEAD OF BUSINESS DEVELOPMENT Work Phone: [facility] Comment on above: Chest pain, unspecif ied type (Primary Dx); High blood sugar APPOINTMENT CANCELLE D (Primary Dx); Uncontrolled type 1 diabetes mellitus with hypoglycemia without coma (HCC); Type I (juvenile type) diabetes mellitus without mention of complication, not stated as uncontrolled (HCC) Start: 06-30-2022 End: 07-01-2022 Emergency department patient visit MD Bright [facility]Emergency Department Start: 06-11-2022 Telephone encounter Deangelo canales MD Work Phone: [facility] Comment on above: Results Start: 06-09-2022 Telephone encounter Deangelo canales MD Work Phone: [facility] Comment on above: Urgent value Start: 06-07-2022 Telephone encounter Radha Hameed APRN.HEAD OF BUSINESS DEVELOPMENT Work Phone: [facility] Comment on above: Medication Problem Refill Request Start: 03-04-2022 Patient Outreach Meena alexandra APRN.HEAD OF BUSINESS DEVELOPMENT Work Phone: [facility] Comment on above: Transition Of Care Start: 03-03-2022 [facility]-patient / [facility] Start: 2022 Non-patient / Non-visit MD Deangelo lowry [facility] Start: 2022 End: 03-03-2022 Evaluation and management of inpatient [facility]Intensive Care [facility] Start: 01-31-2022 End: 01-31-2022 Emergency department patient visit [facility]Emergency [facility] Start: 01-19-2022 End: 01-19-2022 [facility] Start: 11-17-2021 ambulatory Phillip HINOJOSA RN.HEAD OF BUSINESS DEVELOPMENT Work Phone: [facility] Comment on above: PHMA/Care Gap Outrea ch Start: 06-26-2021 Telephone encounter Deangelo canales MD Work Phone: [facility] Comment on above: Insurance Authorizat ion Start: 04-21-2018 End: 04-22-2018 Patient encounter AUBREY DUNCAN [facility] Start: 03-20-2018 End: 03-23-2018 Evaluation and management of inpatient GLO KOENIG [facility] Start: 01-13-2018 End: 01-14-2018 Ambulatory [facility] Start: 12-27-2017 End: 12-27-2017 Ambulatory RON [facility] Start: 12-21-2017 End: 12-22-[address] [facility] Start: 12-17-2017 End: 12-18-2017 Ambulatory RON Rodgers TRISTAN [facility] Start: 12-17-2017 End: 12-17-2017 Ambulatory [facility] Start: 12-10-2017 End: 12-11-2017 Ambulatory [facility] Start: 11-20-2017 End: 12-06-2017 Evaluation and management of inpatient [facility] Procedures Date Procedure Procedure Detail Performing [...] Adult depression scr eening assessment Phillip Howe POST OFFICE MANAGER.HEAD OF BUSINESS DEVELOPMENT Work Phone: Start: 11-12-2016 End: 11-12-2016 *Microalbumin, Creatine Ratio, rand urine Edwina Quintero ASSISTANT FARM OPERATIONS MANAGER Work Phone: Start: 11-12-2016 End: 11-13-2016 HbA1c Edwina Quintero ASSISTANT FARM OPERATIONS MANAGER Work Phone: Respiratory Panel (PCR) MD Alex [...] profile DTAP,TDAP,TD (8 - Td or Tdap) [facility] Start: 02-27-2025 Following clinical pathway protocol [facility] Start: 02-27-2025 Gas panel - Venous blood [facility] Start: 02-27-2025 Verification routine [facility] Start: 02-27-2025 Admission procedure [facility] Start: 02-27-2025 Hospital admission, emergency, from emergency room, medical nature [facility] Start: 02-05-2025 Patient discharge [facility] Start: 02-05-2025 End: 02-05-2025 [facility] Start: 02-05-2025 Care regimes management [facility] Start: 02-05-2025 Notification of physician [facility] Start: 02-05-2025 Assessment of risk of venous thromboembolism [facility] Start: 02-05-2025 Continuous pulse oximetry [facility] Start: 02-05-2025 End: 02-05-2025 Following clinical pathway protocol [facility] Start: 02-05-2025 Incentive spirometry [facility] Start: 02-05-2025 Inhalation therapy procedure [facility] Start: 02-05-2025 Insertion of catheter into peripheral vein [facility] Start: 02-05-2025 Introduction of urinary catheter [facility] Start: 02-05-2025 Lab findings surveillance [facility] Start: 02-05-2025 Measuring intake and output [facility] Start: 02-05-2025 Notification of physician [facility] Start: 02-05-2025 Oxygen therapy [facility] Start: 02-05-2025 Patient education [facility] Start: 02-05-2025 Patient referral to dietitian [facility] Start: 02-05-2025 Providing care according to standard [facility] Start: 02-05-2025 Provision of activity privileges [facility] Start: 02-05-2025 Referral to service [facility] Start: 02-05-2025 Tobacco use cessation education [facility] Start: 02-05-2025 Vital signs measurements [facility] Start: 02-05-2025 [facility] Start: 02-05-2025 Admission procedure [facility] Start: 02-05-2025 Hospital admission, emergency, from emergency room, medical nature [facility] Start: 02-05-2025 Verification routine [facility] Start: 02-05-2025 Serum inorganic phosphate measurement [facility] Start: 01-26-2025 [facility] Start: 01-26-2025 [facility] Start: 12-14-2024 [facility] Start: 12-12-2024 [facility] Start: 11-11-2024 [facility] Start: 10-19-2024 [facility] Start: 10-19-2024 [facility] Start: 08-25-2023 ANNUAL PCP TEAM CHRONIC DISEASE VISIT ANNUAL PCP TEAM CHRONIC DISEASE VISIT [facility] Start: 07-07-2023 ANNUAL PCP TEAM CHRONIC DISEASE VISIT ANNUAL PCP TEAM CHRONIC DISEASE VISIT [facility] Start: 06-09-2023 ANNUAL PCP TEAM CHRONIC DISEASE VISIT ANNUAL PCP TEAM CHRONIC DISEASE VISIT [facility] Start: 06-09-2023 Hepatitis B surface antibody level LDL CHOLESTEROL [facility] Start: 01-03-2023 [facility] Start: 12-09-2022 [facility] Start: 12-04-2022 [facility] Start: 12-03-2022 [facility] Start: 11-18-2022 [facility] Start: 11-17-2022 [facility] Start: 10-13-2022 Assay of troponin quantitative ASSAY OF TROPONIN QUANT [facility] Start: 10-13-2022 Basic metabolic panel calcium total METABOLIC PANEL TOTAL CA [facility] Start: 10-13-2022 Blood count complete auto&auto difrntl wbc COMPLETE CBC W/AUTO DIFF WBC [facility] Start: 10-13-2022 Ecg routine ecg w/least 12 lds trcg only w/o i&r ELECTROCARDIOGRAM TRACING [facility] Start: 10-13-2022 Iv infusion hydration each additional hour HYDRATE IV INFUSION ADD-ON [facility] Start: 10-13-2022 Iv infusion hydration initial 31 min-1 hour HYDRATION IV INFUSION INIT [facility] Start: 10-13-2022 Radiologic exam chest single view X-RAY EXAM CHEST 1 VIEW [facility] Start: 09-09-2022 Hemoglobin A1c/Hemoglobin.total in Blood HBA1C [facility] Start: 08-20-2022 Patient discharge [facility] Start: 08-19-2022 Care planning and problem solving actions [facility] Start: 08-19-2022 Care regimes management [facility] Start: 08-19-2022 Notification of physician [facility] Start: 08-19-2022 [facility] Start: 08-18-2022 End: 08-19-2022 [facility] Start: 08-18-2022 Ambulation without limitation [facility] Start: 08-18-2022 Assessment of risk of venous thromboembolism [facility] Start: 08-18-2022 Continuous pulse oximetry [facility] Start: 08-18-2022 End: 08-18-2022 Following clinical pathway protocol [facility] Start: 08-18-2022 Inhalation therapy procedure [facility] Start: 08-18-2022 Insertion of catheter into peripheral vein [facility] Start: 08-18-2022 Lab findings surveillance [facility] Start: 08-18-2022 Measuring intake and output [facility] Start: 08-18-2022 Notification of physician [facility] Start: 08-18-2022 Patient education [facility] Start: 08-18-2022 Patient referral to dietitian [facility] Start: 08-18-2022 Providing care according to standard [facility] Start: 08-18-2022 Vital signs measurements [facility] Start: 08-18-2022 Admission procedure [facility] Start: 08-09-2022 DEPRESSION ASSESSMENT DEPRESSION ASSESSMENT [facility] Start: 07-07-2022 [facility] Start: 06-30-2022 [facility] Start: 06-25-2022 ANNUAL PCP TEAM CHRONIC DISEASE VISIT ANNUAL PCP TEAM CHRONIC DISEASE VISIT [facility] Start: 04-09-2022 Influenza vaccination INFLUENZA (#1) [facility] Start: 03-03-2022 Patient discharge [facility] Work Phone: Start: 03-03-2022 Care regimes management [facility] Work Phone: Start: 03-03-2022 Notification of physician [facility] Work Phone: Start: 03-03-2022 Patient referral to dietitian [facility] Work Phone: Start: 03-03-2022 [facility] Work Phone: Start: 2022 [facility] Work Phone: Start: 2022 Application of intermittent pneumatic compression device [facility] Work Phone: Start: 2022 Assessment of risk of venous thromboembolism [facility] Work Phone: Start: 2022 Continuous pulse oximetry [facility] Work Phone: Start: 2022 End: 2022 Following clinical pathway protocol [facility] Work Phone: Start: 2022 Insertion of catheter into peripheral vein [facility] Work Phone: Start: 2022 Lab findings surveillance [facility] Work Phone: Start: 2022 Measuring intake and output [facility] Work Phone: Start: 2022 Notification of physician [facility] Work Phone: Start: 2022 Patient education [facility] Work Phone: Start: 2022 Patient referral to dietitian [facility] Work Phone: Start: 2022 Providing care according to standard [facility] Work Phone: Start: 2022 Vital signs measurements [facility] Work Phone: Start: 2022 [facility] Work Phone: Start: 2022 Blood chemistry [facility] Work Phone: Start: 2022 Verification routine [facility] Work Phone: Start: 2022 Admission procedure [facility] Work Phone: Start: 2022 Urinalysis complete panel - Urine [facility] Work Phone: Start: 2022 End: 2022 [facility] Work Phone: Start: 2022 [facility] Work Phone: Start: 01-08-2022 Hepatitis B screening URINE ALBUMIN:CREATININE RATIO [facility] Start: 01-08-2022 Hepatitis B surface antibody level LDL CHOLESTEROL [facility] Start: 11-17-2021 End: 01-17-2022 ALBUMIN/CREAT RATIO RND UR ALBUMIN/CREAT RATIO RND UR Lab Routine Uncontrolled type 1 diabetes mellitus with hypoglycemia without coma (HCC) Expected: 11/17/2021, Expires: 01/17/2022 [facility] Work Phone: Comment on above: Expected: 11/17/2021, Expires: 2 Start: 08-09-2021 DEPRESSION ASSESSMENT DEPRESSION ASSESSMENT [facility] Start: 04-10-2021 Hemoglobin A1c/Hemoglobin.total in Blood HBA1C [facility] Start: 09-22-2020 3 comp foot exam completed DIABETIC FOOT EXAM [facility] Start: 06-22-2019 Adult depression screening assessment DEPRESSION SCREENING [facility] Start: 05-11-2017 Hepatitis C antibody, confirmatory test DILATED RETINAL EXAM [facility] Start: 03-15-2017 End: 03-15-2017 Appointment Appointment [facility] Work Phone: Start: 03-15-2017 End: 03-15-2017 Appointment Appointment [facility] Work Phone: Start: 12-10-2016 End: 12-10-2016 Appointment Appointment [facility] Work Phone: Start: 12-10-2016 End: 12-12-2016 *CMP Complete Metabolic Panel *CMP Complete Metabolic Panel [facility] Work Phone: Start: 12-10-2016 End: 12-12-2016 HbA1c *HgA1C [facility] Work Phone: Start: 12-10-2016 End: 12-12-2016 Lipid panel [AGGREGATE] *Lipid Profile [facility] Work Phone: Start: 12-10-2016 End: 12-12-2016 Office/outpatient visit, est, level 3 [id number] Vst-Est Level III [facility] Work Phone: Start: 11-12-2016 End: 11-12-2016 *CMP Complete Metabolic Panel *CMP Complete Metabolic Panel [facility] Work Phone: Start: 11-12-2016 End: 11-12-2016 *Microalbumin, Creatine Ratio, rand urine *Microalbumin, Creatine Ratio, rand urine [facility] Work Phone: Start: 11-12-2016 End: 11-13-2016 HbA1c *[facility]A1C [facility] Work Phone: Start: 11-12-2016 End: 11-12-2016 Lipid panel [AGGREGATE] *Lipid Profile [facility] Work Phone: Start: 2015 HEPATITIS C SCREENING HEPATITIS C SCREENING [facility] Start: 2015 HIV SCREENING HIV SCREENING [facility] Start: 10-10-2013 PNEUMOCOCCAL (2 - PPSV23 if available, else PCV20) PNEUMOCOCCAL (2 - PPSV23 if available, else PCV20) [facility] Start: 10-10-2013 PNEUMOCOCCAL (2 - PPSV23 or PCV20) PNEUMOCOCCAL (2 - PPSV23 or PCV20) [facility] Start: 10-02-2013 HPV VACCINE (3 - Male 3-dose series) HPV VACCINE (3 - Male 3-dose series) [facility] Start: 2013 ONE PNEUMOVAX PRIOR TO AGE 65 ONE PNEUMOVAX PRIOR TO AGE 65 [facility] Start: 12-05-2012 PNEUMOCOCCAL (2 - PPSV23 if available, else PCV20) PNEUMOCOCCAL (2 - PPSV23 if available, else PCV20) [facility] Start: 2011 PEDS TO ADULT TRANSITION ANNUAL ASSESSMENT PEDS TO ADULT TRANSITION ANNUAL ASSESSMENT [facility] Start: 2009 PEDS TO ADULT TRANSITION INITIAL DISCUSSION PEDS TO ADULT TRANSITION INITIAL DISCUSSION [facility] Start: 2007 MENINGOCOCCAL B: Consider based on risk (1 of 2 - Risk Bexsero 2-dose series) MENINGOCOCCAL B: Consider based on risk (1 of 2 - Risk Bexsero 2-dose series) [facility] Start: 2002 COVID-19 VACCINE (1) COVID-19 VACCINE (1) [facility] Start: 1997 COVID-19 VACCINE (#1) COVID-19 VACCINE (#1) [facility] Anion gap in Serum o r Plasma [facility] Anion gap in Serum o r Plasma [facility] Anion gap measurement [facility] Work Phone: Beta hydroxybutyrate [Mass/volume] in Serum or Plasma [facility] Beta hydroxybutyrate [Mass/volume] in Serum or Plasma [facility] Bilirubin measuremen t, urine [facility] BUN/Creatinine ratio [facility] Work Phone: BUN/Creatinine ratio [facility] BUN/Creatinine ratio [facility] Calcium [Mass/volume ] in Serum or Plasma [facility] Work Phone: Calcium [Mass/volume ] in Serum or Plasma [facility] Calcium [Mass/volume ] in Serum or Plasma [facility] Carbon dioxide, tota l [Moles/volume] in Central venous blood [facility] Carbon dioxide, tota l [Moles/volume] in Central venous blood [facility] Carbon dioxide, tota l [Moles/volume] in Serum or Plasma [facility] Work Phone: Chloride [Moles/volu me] in Serum or Plasma [facility] Work Phone: Creatinine [Mass/volume] in Serum or Plasma [facility] Creatinine [Mass/volume] in Serum or Plasma [facility] Creatinine [Moles/volume] in Serum or Plasma [facility] Work Phone: Erythrocyte mean corpuscular volume determination [facility] Glucose [Mass/volume ] in Serum or Plasma [facility] Work Phone: Glucose [Mass/volume ] in Serum or Plasma [facility] Glucose [Mass/volume ] in Serum or Plasma [facility] Hematocrit [Volume Fraction] of Blood [facility] Hemoglobin [Mass/volume] in Blood [facility] Hemoglobin [Presence ] in Urine [facility] Leukocytes [#/volume ] in Blood [facility] Magnesium measurement [facility] Mean corpuscular hemoglobin concentration determination [facility] Mean corpuscular hemoglobin determination [facility] Measurement of keton es in urine using dipstick [facility] Measurement of renal function [facility] Work Phone: Measurement of renal function [facility] Measurement of renal function [facility] Microscopic urinalysis [facility] Neutrophil count [facility] Neutrophil percent differential count [facility] Organism count, microscopic method [facility] Patient Education [facility] Work Phone: Patient referral [facility] Work Phone: pH of Urine [facility] Platelets [#/volume] in Blood [facility] Potassium [Moles/volume] in Serum or Plasma [facility] Work Phone: Potassium measurement [facility] Potassium measurement [facility] Red blood cell count [facility] Red cell distributio n width determination [facility] Serum chloride measurement [facility] Serum chloride measurement [facility] Sodium [Moles/volume ] in Serum or Plasma [facility] Work Phone: Sodium measurement [facility] Sodium measurement [facility] Specific gravity of Urine [facility] Urea nitrogen [Mass/volume] in Serum or Plasma [facility] Work Phone: Urea nitrogen [Mass/volume] in Serum or Plasma [facility] Urea nitrogen [Mass/volume] in Serum or Plasma [facility] Urine dipstick for glucose [facility] Urine dipstick for leukocyte esterase [facility] Urine dipstick for nitrite [facility] Urine dipstick for protein [facility] Urine examination [facility] Urine microscopy: epithelial cells [facility] Urine microscopy: re d cells [facility] Urobilinogen [Presen ce] in Urine [facility] White blood cell count [facility] Immun[place] Immunization Date Immunization Notes Care Provider Franco kiran 06-09-2022 influenza, injectabl e, quadrivalent, contains preservative Deangelo Noel MD Work Phone: [facility] 06-25-2021 influenza, injectabl e, quadrivalent, contains preservative Phillip Charles POST OFFICE MANAGER.HEAD OF BUSINESS DEVELOPMENT Work Phone: [facility] 10-01-2020 tetanus toxoid, reduced diphtheria toxoid, and acellular pertussis vaccine, adsorbed Phillip Charles POST OFFICE MANAGER.HEAD OF [employer] DEVELOPMENT Work Phone: [facility] 06-28-2019 influenza, injectabl e, quadrivalent, contains preservative Phillip Charles POST OFFICE MANAGER.[employer] OF BUSINESS DEVELOPMENT Work Phone: [facility] 11-20-2017 tetanus toxoid, reduced diphtheria toxoid, and acellular pertussis vaccine, adsorbed [facility] 05-18-2017 influenza, injectabl e, quadrivalent, preservative free Dr. Keisha Handy DO Work Phone: [facility] 05-18-2017 influenza, seasonal, injectable [facility] 08-28-2015 influenza, injectabl e, quadrivalent, preservative free Phillip Charles POST OFFICE MANAGER.HEAD OF BUSINESS DEVELOPMENT Work Phone: [facility] 08-09-2015 influenza, injectabl e, quadrivalent, preservative free Dr. Keisha Handy DO Work Phone: [facility] 08-09-2015 influenza, seasonal, injectable [facility] 06-13-2014 influenza, seasonal, injectable Phillip Charles POST OFFICE MANAGER.HEAD OF BUSINESS DEVELOPMENT Work Phone: [facility] 06-01-2013 human papilloma viru s vaccine, quadrivalent Phillip Charles POST OFFICE MANAGER.HEAD OF BUSINESS DEVELOPMENT Work Phone: [facility] Work Phone: 06-01-2013 influenza virus vaccine, unspecified formulation Phillip Charles POST OFFICE MANAGER.HEAD OF BUSINESS DEVELOPMENT Work Phone: [facility] Work Phone: 06-01-2013 Meningococcal, MCV4, unspecified conjugate formulation(groups A, C, Y and W-135) Phillip Charles POST OFFICE MANAGER.HEAD OF BUSINESS DEVELOPMENT Work Phone: [facility] Work Phone: 10-10-2012 human papilloma viru s vaccine, quadrivalent Phillip Charles POST OFFICE MANAGER.HEAD OF BUSINESS DEVELOPMENT Work Phone: [facility] 10-10-2012 pneumococcal conjuga te vaccine, 13 valent Phillip Charles POST OFFICE MANAGER.HEAD OF BUSINESS DEVELOPMENT Work Phone: [facility] 06-03-2010 influenza virus vaccine, unspecified formulation Phillip Charles POST OFFICE MANAGER.[facility] Work Phone: [facility] 01-02-2009 Meningococcal, MCV4, unspecified conjugate formulation(groups A, C, Y and W-135) Phillip Charles POST OFFICE MANAGER.HEAD OF BUSINESS DEVELOPMENT Work Phone: [facility] Work Phone: 01-02-2009 tetanus toxoid, reduced diphtheria toxoid, and acellular pertussis vaccine, adsorbed Phillip Charles POST OFFICE MANAGER.[facility] Work Phone: [facility] Work Phone: 06-17-2007 influenza virus vaccine, unspecified formulation Phillip Charles POST OFFICE MANAGER.HEAD OF BUSINESS DEVELOPMENT Work Phone: [facility] Work Phone: 06-28-2003 diphtheria, tetanus toxoids and pertussis vaccine Phillip Charles POST OFFICE MANAGER.HEAD OF BUSINESS DEVELOPMENT Work Phone: [facility] Work Phone: 06-28-2003 poliovirus vaccine, inactivated Phillip Charles POST OFFICE MANAGER.HEAD OF BUSINESS DEVELOPMENT Work Phone: [facility] Work Phone: 04-24-2002 hepatitis B vaccine, pediatric or pediatric/adolescent dosage Phillip Charles POST OFFICE MANAGER.HEAD OF BUSINESS DEVELOPMENT Work Phone: [facility] Work Phone: 04-24-2002 measles, mumps and rubella virus vaccine Phillip Charles POST OFFICE MANAGER.HEAD OF BUSINESS DEVELOPMENT Work Phone: [facility] Work Phone: 03-18-2000 diphtheria, tetanus toxoids and pertussis vaccine Phillip Charles POST OFFICE MANAGER.HEAD OF BUSINESS DEVELOPMENT Work Phone: [facility] Work Phone: 03-18-2000 haemophilus influenz ae type b vaccine, HbOC conjugate Phillip Charles POST OFFICE MANAGER.[facility] Work Phone: [facility] Work Phone: 03-18-2000 hepatitis B vaccine, pediatric or pediatric/adolescent dosage Phillip Charles POST OFFICE MANAGER.[facility] Work Phone: [facility] Work Phone: 03-18-2000 poliovirus vaccine, inactivated Phillip Charles POST OFFICE MANAGER.[facility] Work Phone: [facility] Work Phone: 06-10-1998 measles, mumps and rubella virus vaccine Phillip Charles POST OFFICE MANAGER.HEAD OF BUSINESS DEVELOPMENT Work Phone: [facility] Work Phone: 1997 diphtheria, tetanus toxoids and pertussis vaccine Phillip Charles POST OFFICE MANAGER.[facility] Work Phone: [facility] Work Phone: 1997 haemophilus influenz ae type b vaccine, HbOC conjugate Phillip Charles POST OFFICE MANAGER.[facility] Work Phone: [facility] Work Phone: 1997 diphtheria, tetanus toxoids and pertussis vaccine Phillip Charles POST OFFICE MANAGER.HEAD OF BUSINESS DEVELOPMENT Work Phone: [facility] Work Phone: 1997 haemophilus influenz ae type b vaccine, HbOC conjugate Phillip Charles POST OFFICE MANAGER.HEAD OF BUSINESS DEVELOPMENT Work Phone: [facility] Work Phone: 1997 poliovirus vaccine, inactivated Phillip Charles POST OFFICE MANAGER.[facility] Work Phone: [facility] Work Phone: 1997 diphtheria, tetanus toxoids and pertussis vaccine Phillip Charles POST OFFICE MANAGER.HEAD OF BUSINESS DEVELOPMENT Work Phone: [facility] Work Phone: 1997 haemophilus influenz ae type b vaccine, HbOC conjugate Phillipgeronimo Howe POST OFFICE MANAGER.HEAD OF BUSINESS DEVELOPMENT Work Phone: [facility] Work Phone: 1997 hepatitis B vaccine, pediatric or pediatric/adolescent dosage Phillipgeronimo Howe POST OFFICE MANAGER.HEAD OF BUSINESS DEVELOPMENT Work Phone: [facility] Work Phone: 1997 poliovirus vaccine, inactivated Phillipgeronimo Howe POST OFFICE MANAGER.HEAD OF BUSINESS DEVELOPMENT Work Phone: [facility] Work Phone: Payers Date Payer Category Payer Self-pay [id number] 2024 Medicaid [id number] 2021 Medicaid [employer] [employer] [place] [employer] MEDICA[employer] [id number] 2021-[facility] [phone] [address] [place] [address] Medicaid [id number] 2021 Medicaid [id number] Medicaid [id number] Medicaid [id number] Unknown [id number] Unknown [id number] Unknown [id number] Unknown [id number] Unknown [id number] Unknown [id number] Unknown [id number] Unknown [id number] Unknown [id number] Social History Date Type Detail Facility Start: 06-22-2018 End: 06-09-2022 Tobacco smoking status NHIS Never smoked tobacco [facility] History of tobacco use Cigarette Smoker [facility] History of tobacco use Cigar Smoker [facility] Start: 06-22-2018 End: 06-09-2022 Cigarettes smoked current (pack per day) - Reported 1 [facility] Start: 06-22-2018 End: 06-09-2022 Tobacco use and exposure User of smokeless tobacco [facility] History of tobacco use Chews Tobacco [facility] Start: 09-18-2021 End: 08-25-2022 Alcohol intake Current drinker of alcohol (finding) [facility] Start: 04-12-2018 History SDOH Alcohol Comment once a year [facility] Start: 05-11-2018 Education 13 [facility] Start: 08-28-2015 End: 06-09-2022 Tobacco Comment dad smokes inside and outside. Dad trying to quit. patient chews and smokes also [facility] Start: 1995 Sex Assigned At Not on file [facility] Start: 08-19-2021 End: 06-09-2022 Exposure to SARS-CoV-2 (event) Not sure [facility] Start: 01-31-2022 End: 01-03-2023 Tobacco smoking status NHIS Unknown if ever smoked [facility] Start: 11-25-2020 None [facility] Start: 11-25-2020 With Family [facility] Start: 11-25-2020 Cigarettes;Chew [facility] Start: 1995 Sex Assigned At Male W [facility] Start: 02-21-2022 End: 03-03-2022 Exposure to SARS-CoV-2 (event) Unable to assess [facility] Work Phone: Start: 10-19-2024 End: 02-27-2025 Tobacco smoking status NHIS Current some day smoker [facility] Start: 10-19-2024 End: 11-11-2024 Sex Male (finding) [facility] Medical Equipment Procedure Code Equipment Code Equipment Original Text Equipment Identifier Dates INSULIN PEN NEEDLE [id number] Start: 01-16-2014 End: 07-07-2022 Comment on above: [...] 12-23-2017 Pen Needle, Diabetic (Comfort Ez Pen [place]) 31 gauge x 5/16 needle Start: 12-22-2017 End: 12-23-2017 Pen Needle, Diabetic (Comfort Ez Pen [place]) 31 gauge x 5/16 needle Start: 12-23-2017 End: 12-23-2017 Blood Sugar Diagnostic (Freestyle Lite Strips) strip Start: 12-23-2017 End: 12-23-2017 Pen Needle, Diabetic (Comfort Ez Pen [place]) 31 gauge x 5/16 needle Start: 12-22-2017 End: 12-23-2017 Pen Needle, Diabetic (Comfort Ez Pen [place]) 31 gauge x 5/16 needle Start: 12-23-2017 End: 12-23-2017 Blood Sugar Diagnostic (Freestyle Lite Strips) strip Start: 12-23-2017 End: 12-23-2017 Pen Needle, Diabetic (Comfort Ez Pen [place]) 31 gauge x 5/16 needle Start: 12-22-2017 End: 12-23-2017 Pen Needle, Diabetic (Comfort Ez Pen [place]) 31 gauge x 5/16 needle Start: 12-23-2017 End: 12-23-2017 Blood Sugar Diagnostic (Freestyle Lite Strips) strip Start: 12-23-2017 End: 12-23-2017 Pen Needle, Diabetic (Comfort Ez Pen [place]) 31 gauge x 5/16 needle Start: 12-22-2017 End: 12-23-2017 Pen Needle, Diabetic (Comfort Ez Pen [place]) 31 gauge x 5/16 needle Start: 12-23-2017 End: 12-23-2017 Blood Sugar Diagnostic (Freestyle Lite Strips) strip Start: 12-23-2017 End: 12-23-2017 Pen Needle, Diabetic (Comfort Ez Pen [place]) 31 gauge x 5/16 needle Start: 12-22-2017 End: 12-23-2017 Pen Needle, Diabetic (Comfort Ez Pen [place]) 31 gauge x 5/16 needle Start: 12-23-2017 End: 12-23-2017 Blood Sugar Diagnostic (Freestyle Lite Strips) strip Start: 12-23-2017 End: 12-23-2017 Pen Needle, Diabetic (Comfort Ez Pen [place]) 31 gauge x 5/16 needle Start: 12-22-2017 End: 12-23-2017 Pen Needle, Diabetic (Comfort Ez Pen [place]) 31 gauge x 5/16 needle Start: 12-23-2017 End: 12-23-2017 Blood Sugar Diagnostic (Freestyle Lite Strips) strip Start: 12-23-2017 End: 12-23-2017 Pen Needle, Diabetic (Comfort Ez Pen [place]) 31 gauge x 5/16 needle Start: 12-22-2017 End: 12-23-2017 Pen Needle, Diabetic (Comfort Ez Pen [place]) 31 gauge x 5/16 needle Start: 12-23-2017 End: 12-23-2017 Blood Sugar Diagnostic (Freestyle Lite Strips) strip Start: 12-23-2017 End: 12-23-2017 Pen Needle, Diabetic (Comfort Ez Pen [place]) 31 gauge x 5/16 needle Start: 12-22-2017 End: 12-23-2017 Pen Needle, Diabetic (Comfort Ez Pen [place]) 31 gauge x 5/16 needle Start: 12-23-2017 End: 12-23-2017 Blood Sugar Diagnostic (Freestyle Lite Strips) strip Start: 12-23-2017 End: 12-23-2017 Pen Needle, Diabetic (Comfort Ez Pen [place]) 31 gauge x 5/16 needle Start: 12-22-2017 End: 12-23-2017 Pen Needle, Diabetic (Comfort Ez Pen [place]) 31 gauge x 5/16 needle Start: 12-23-2017 End: 12-23-2017 Blood Sugar Diagnostic (Freestyle Lite Strips) strip Start: 12-23-2017 End: 12-23-2017 Pen Needle, Diabetic (Comfort Ez Pen [place]) 31 gauge x 5/16 needle Start: 12-22-2017 End: 12-23-2017 Pen Needle, Diabetic (Comfort Ez Pen [place]) 31 gauge x 5/16 needle Start: 12-23-2017 End: 12-23-2017 Blood Sugar Diagnostic (Freestyle Lite Strips) strip Start: 12-23-2017 End: 12-23-2017 Pen Needle, Diabetic (Comfort Ez Pen [place]) 31 gauge x 5/16 needle Start: 12-22-2017 End: 12-23-2017 Pen Needle, Diabetic (Comfort Ez Pen [place]) 31 gauge x 5/16 needle Start: 12-23-2017 End: 12-23-2017 Blood Sugar Diagnostic (Freestyle Lite Strips) strip Start: 12-23-2017 End: 12-23-2017 Pen Needle, Diabetic (Comfort Ez Pen [place]) 31 gauge x 5/16 needle Start: 12-22-2017 End: 12-23-2017 Pen Needle, Diabetic (Comfort Ez Pen [place]) 31 gauge x 5/16 needle Start: 12-23-2017 End: 12-23-2017 Insulin Syringe-Needle U-100 [Insulin Syringe-Needle U-100 0.5 Ml 31 Gauge X 5/16] (Insulin Syringe-Needle U-100 0.5 Ml 31 Gauge X ) 0.5 mL 31 gauge x 5/16 syringe Start: 10-19-2024 Blood Sugar Diagnostic (Freestyle Lite Strips) strip Start: 12-23-2017 End: 12-23-2017 Pen Needle, Diabetic (Comfort Ez Pen [place]) 31 gauge x 5/16 needle Start: 12-22-2017 End: 12-23-2017 Pen Needle, Diabetic (Comfort Ez Pen [place]) 31 gauge x 5/16 needle Start: 12-23-2017 End: 12-23-2017 Insulin Syringe-Needle U-100 [Insulin Syringe-Needle U-100 0.5 Ml 31 Gauge X 5/16] (Insulin Syringe-Needle U-100 0.5 Ml 31 Gauge X ) 0.5 mL 31 gauge x 5/16 syringe Start: 10-19-2024 Blood Sugar Diagnostic (Freestyle Lite Strips) strip Start: 12-23-2017 End: 12-23-2017 Pen Needle, Diabetic (Comfort Ez Pen [place]) 31 gauge x 5/16 needle Start: 12-22-2017 End: 12-23-2017 Pen Needle, Diabetic (Comfort Ez Pen [place]) 31 gauge x 5/16 needle Start: 12-23-2017 End: 12-23-2017 Insulin Syringe-Needle U-100 (Trueplus Insulin) 0.5 mL 31 gauge x 5/16 syringe Start: 10-19-2024 Blood Sugar Diagnostic (Freestyle Lite Strips) strip Start: 12-23-2017 End: 12-23-2017 Pen Needle, Diabetic (Comfort Ez Pen [place]) 31 gauge x 5/16 needle Start: 12-22-2017 End: 12-23-2017 Pen Needle, Diabetic (Comfort Ez Pen [place]) 31 gauge x 5/16 needle Start: 12-23-2017 End: 12-23-2017 Insulin Syringe-Needle U-100 (Trueplus Insulin) 0.5 mL 31 gauge x 5/16 syringe Start: 10-19-2024 Blood Sugar Diagnostic (Freestyle Lite Strips) strip Start: 12-23-2017 End: 12-23-2017 Pen Needle, Diabetic (Comfort Ez Pen [place]) 31 gauge x 5/16 needle Start: 12-22-2017 End: 12-23-2017 Pen Needle, Diabetic (Comfort Ez Pen [place]) 31 gauge x 5/16 needle Start: 12-23-2017 End: 12-23-2017 Insulin Syringe-Needle U-100 (Trueplus Insulin) 0.5 mL 31 gauge x 5/16 syringe Start: 10-19-2024 Blood Sugar Diagnostic (Freestyle Lite Strips) strip Start: 12-23-2017 End: 12-23-2017 Pen Needle, Diabetic (Comfort Ez Pen [place]) 31 gauge x 5/16 needle Start: 12-22-2017 End: 12-23-2017 Pen Needle, Diabetic (Comfort Ez Pen [place]) 31 gauge x 5/16 needle Start: 12-23-2017 End: 12-23-2017 Insulin Syringe-Needle U-100 (Trueplus Insulin) 0.5 mL 31 gauge x 5/16 syringe Start: 10-19-2024 Blood Sugar Diagnostic (Freestyle Lite Strips) strip Start: 12-23-2017 End: 12-23-2017 Pen Needle, Diabetic (Comfort Ez Pen [place]) 31 gauge x 5/16 needle Start: 12-22-2017 End: 12-23-2017 Pen Needle, Diabetic (Comfort Ez Pen [place]) 31 gauge x 5/16 needle Start: 12-23-2017 End: 12-23-2017 Insulin Syringe-Needle U-100 (Trueplus Insulin) 0.5 mL 31 gauge x 5/16 syringe Start: 10-19-2024 Blood Sugar Diagnostic (Freestyle Lite Strips) strip Start: 12-23-2017 End: 12-23-2017 Pen Needle, Diabetic (Comfort Ez Pen [place]) 31 gauge x 5/16 needle Start: 12-22-2017 End: 12-23-2017 Pen Needle, Diabetic (Comfort Ez Pen [place]) 31 gauge x 5/16 needle Start: 12-23-2017 End: 12-23-2017 Goals Date Patient Goal Desired Activity /State Functional Status Date Assessment Result Facility 02-05-2025 Functional status Ambulates;Chair [facility] Work Phone: 08-20-2022 Functional status Up ad abhishek;Bathroom Priv ilege [facility] Work Phone: 03-03-2022 Functional status Ambulates [facility] Work Phone: Mental Status Date Assessment Result Facility 02-27-2025 Cognitive function Voice/Name [facility] Work Phone: 02-05-2025 Cognitive function Level Of Cons ciousness Awake;Alert;Appropriate;Follow s Commands [facility] Work Phone: 01-26-2025 Cognitive function Voice/Name [facility] Work Phone: 10-19-2024 Cognitive function Voice/Name [facility] Work Phone: 01-03-2023 Cognitive function Voice/Name [facility] Work Phone: 12-09-2022 Cognitive function Level Of Cons ciousness Awake;Alert;Appropriate;Follow s Commands [facility] Work Phone: 12-03-2022 Cognitive function Voice/Name [facility] Work Phone: 11-17-2022 Cognitive function Voice/Name [facility] Work Phone: 10-13-2022 Cognitive function Level Of Cons ciousness Awake;Alert;Appropriate;Follow s Commands [facility] Work Phone: 08-20-2022 Cognitive function Voice/Name [facility] Work Phone: 07-07-2022 Cognitive function Level Of Cons ciousness Awake;Alert;Appropriate;Follow s Commands [facility] Work Phone: 06-30-2022 Cognitive function Voice/Name [facility] Work Phone: 03-03-2022 Cognitive function Voice/Name [facility] Work Phone: 2022 Cognitive function Level Of Cons ciousness Awake;Drowsy;Inappropriate [facility] Work Phone: Clinical Notes 05-29-2010 to 02-27-2025 Note Date & Type Note Facility 02-27-2025 History and physi reid note [facility] 02-05-2025 Discharge summary [facility] 02-05-2025 Note [facility] Medical Records Department [address] [place] [address] Discharge Summary 02/05/25 1642 MR#: [id number] Acct: [id number] Name: UNA COSBY Rep #: [id number] : 1995 29 From: Alo Zambrano MD PCP: Care Physician,No Primary Status:ADM IN Location: ICU [id number] Providers Date of Admission: 02/05/25 Date of [...] % (Auto) 55.6, Lymph % (Auto) 31.1, [place] % (Auto) 9.0, Eos % (Auto) 3.4, [...] Clarity Clear, Urine pH 6.0, Ur Specific [place] 1.010, U rine Protein 30 H, Urine [...] % (Auto) 52.3, Lymph % (Auto) 34.1, [place] % (Auto) 8.5, Eos % (Auto) 4.2, Baso % (Auto) 0.6, Absolute Neuts (auto) 6.8, Abs (more content not included)... 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 He said he has type 1 diabetes mellitus diagnosed at the age of 15. Denies neuropathy or nephropathy or other retinopathy complications. He was admitted withvomiting [place] started around 6 PM for total of 4 times since then. Admitting glucose in [facility] 736 labs were consistent with DKA. First time gap 23-second 12. IV fluids changed from NS to D5 half NS as serum sodium improved from 128-137. Hyponatremia most likely hypertonic hypovolemic hyponatremia Glucose has decreased to 181 in Accu-Chek. [facility] glucose 248. Continue insulin drip for 02/05/25 0749 <Electronically signed by Alo Zambrano MD> Cosigner Signature (if applicable): CC: ~ Signed [facility] Work Phone: 1(353) 299-390006-30-2025 Discharge summary Author Bbaita Rivera [facility] Note Date/Time February 05, 2025 7:00 am [facility] Medical Records Department [address] [place] [address] Emergency Department Summary 02/05/25 MR#: [id number] Acct: [id number] Name: UNA COSBY Rep #:[id number] : 1995 29 From: Babita Rivera DO [...] He denies fevers or chills or sweats. [facility] Medical History (Updated 02/05/25 @ 03:43 [...] % (Auto) 55.6 Lymph % (Auto) 31.1 [place] % (Auto) 9.0 Eos % (Auto) 3.4 [...] 30-74 minutes, Including time spent:,Discussing w/Patient &/or Family/Staff Scientist, Discussing w/Consultants, ArrangingAdmission or Transfer, Performing Direct [...] Primary [Primary Care Provider] - Print Language: Cuban Disposition Disposition: Acute Care Hospital [facility] What to do if you have Problems For any increased pain, shortness of breath, bleeding, nausea or vomiting, chestpain, or any unexpected problems, contact your Primary Care Provider. Call [facility] ([phone]) or report to the closest Emergency Room. Call 911 if necessary. 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 He said he has [...] Glucose has decreased to 181 in Accu-Chek. [facility] glucose 248. Continue insulin drip for 02/05/25 0749 Cosigner Signature (if applicable): CC: ~ Signed [facility]06-30-2025 Discharge summary [facility] Medical Records Department [address] [place] [address] Emergency Department Summary 02/05/25 MR#: [id number] Acct: [id number] Name: UNA COSBY Rep #:[id number] : 1995 29 From: Babita Rivera DO [...] denies fevers or chills or sweats. [facility] Medical History (Updated 02/05/25 @ 03:43 [...] % (Auto) 55.6 Lymph % (Auto) 31.1 [place] % (Auto) 9.0 Eos % (Auto) 3.4 [...] 30-74 minutes, Including time spent:,Discussing w/Patient &/or Family/Staff Scientist, Discussing w/Consultants, ArrangingAdmission or Transfer, Performing Direct [...] Primary [Primary Care Provider] - Print Language: Cuban Disposition Disposition: Acute Care Hospital [facility] What to do if you have Problems For any increased pain, shortness of breath, bleeding, nausea or vomiting, chestpain, or any unexpected problems, contact your Primary Care Provider. Call [facility] ([phone]) or report tothe closest Emergency Room. Call 911 if necessary. 02/05/25 0700 Cosigner Signature (if applicable): CC: No Primary Care Physician ~ Signed [facility]06-30-2025 History and physical note Author Sarah Oh [facility] Note Date/Time February 05, 2025 4:01 am [facility] Medical Records Department [address] [place] [address] H&P Exam - Hospitalist 02/05/25 0343 MR#: [id number] Acct: [id number] Name: UNA COSBY Rep #:[id number] : 1995 29 From: Sarah Oh MD [...] reported, Tobacco use who presents to the [facility] ED on 02/05/2025 with history of [...] 1 and initiated on an insulin drip. [facility] Medical History Noncompliance with medication regimen [...] % (Auto) 55.6, Lymph % (Auto) 31.1, [place] % (Auto) 9.0, Eos % (Auto) 3.4, [...] reported, Tobacco use who presents to the [facility] ED on 02/05/2025 with history of [...] prophylaxis: Lovenox. Charges/Coding Visit Charges Inpatient E&M: 55895 Init Hosp L3 02/05/25 0403 <Electronically signed by Sarah Oh MD> Cosigner Signature (if applicable): CC: Dr. Sarah Oh MD; No Primary Care Physician~ Signed [facility] Work Phone: 1(641) 581-504606-30-2025 Evaluation note* Diagnosis Onset Date Resolution Status Admit Date DKA (diabetic ketoacidosis) acute February 05, 2025 3:44am Hyperglycemia acute February 05, 2025 3:44am Vomiting acute February 05 3:44am [facility] Work Phone: 1(671) 547-192206-30-2025 Evaluation note* Diagnosis Onset Date Resolution Status Admit Date DKA (diabetic ketoacidosis) resolved February 05, 2025 3:44am Hyperglycemia resolved February 05, 2025 3:44am Vomiting resolved February 05 3:44am Acute dehydration acute February 272024 2:52pm Diabetic ketoacidosis associated with type 1 diabetes mellitus acute February 27, 2025 2:52pm [facility] Work Phone: 1(825) 287-357906-30-2025 History and physical note [facility] Medical Records Department [address] [place] [address] H&P Exam - Hospitalist 02/05/25 0343 MR#: [id number] Acct: [id number] Name: UNA COSBY Rep #:[id number] : 1995 29 From: Sarah Oh MD [...] reported, Tobacco use who presents to the [facility] ED on 02/05/2025 with history of [...] 1 and initiated on an insulin drip. [facility] Medical History Noncompliance with medication regimen [...] % (Auto) 55.6, Lymph % (Auto) 31.1, [place] % (Auto) 9.0, Eos % (Auto) 3.4, [...] reported, Tobacco use who presents to the [facility] ED on 02/05/2025 with history of [...] prophylaxis: Lovenox. Charges/Coding Visit Charges Inpatient E&M: 65109 Init Hosp L3 02/05/25 0401 Cosigner Signature (if applicable): CC: Dr. Sarah Oh MD; No Primary Care Physician~ Signed [facility]06-20-2025 Radiology Diagnostic study note [facility] Imaging Services [address] [place], [place] [address] Chest PA and Lateral MR#: [id number] Acct: [id number] Name: UNA COSBY Rep #: [id number] : 1995 M 29 From: Roberto Babin MD PCP: Care Physician,No Primary Status: REG ER Study:Chest PA and Lateral Date of Exam: 01/26/25 Exam# [id number] Ordering Dr: Beverly Wharton PROCEDURE: CHEST PA AND LATERAL 01/26/2025 REASON FOR EXAM: CHEST PAIN TECHNIQUE: CHEST PA AND LATERAL COMPARISON: Prior study dated October 19, 2024. FINDINGS: Hardware: EKG electrodes. Heart: Unremarkable Mediastinum: The mediastinal contour is unremarkable. Lungs: The lungs are clear. Bones: The bones are unremarkable. RAD/Chest PA and Lateral IMPRESSION: NO ACUTE FINDINGS. Reading Location: [place] [address] CC: Beverly Glauthier, PA; No Primary Care Physician ~ Client Development Consultant: Signed [facility]05-08-2025 Discharge summary [facility] Medical Records Department [address] [place] [address] Emergency Department Summary 12/13/24 MR#: [id number] Acct: [id number] Name: UNA COSBY Rep #:[id number] : 1995 29 From: Juan Rivas MD [...] he cannot keep anything down all day. [facility] Medical History Learning difficulty due to [...] % (Auto) 53.8 Lymph % (Auto) 33.9 [place] % (Auto) 8.1 Eos % (Auto) 3.3 [...] Clarity Clear Urine pH 7.0 Ur Specific [place] 1.005 Urine Protein 30 H Urine Glucose [...] (Auto) Neut % (Auto) Lymph % (Auto) [place] % (Auto) Eos % (Auto) Baso % (Auto) Absolute Neuts (auto) Absolute Lymphs (auto) Nucleated RBC % Sodium 136 Potassium 3.6 Chloride 103 Carbon Dioxide 24.0 Anion Gap 9 BUN 10 Creatinine 0.64 L Estim Creat Clear Calc 126.32 Est GFR (MDRD) Non-Af 133 BUN/Creatinine Ratio 16.2 Glucose 275 H Calcium 7.8 b-Hydroxybutyric mmol/L Urine Color Urine Clarity Urine pH Ur Specific [place] Urine Protein Urine Glucose (UA) Urine Ketones [...] (Auto) Neut % (Auto) Lymph % (Auto) [place] % (Auto) Eos % (Auto) Baso % (Auto) Absolute Neuts (auto) Absolute Lymphs (auto) Nucleated RBC % Sodium Potassium Chloride Carbon Dioxide Anion Gap BUN Creatinine Estim Creat Clear Calc Est GFR (MDRD) Non-Af BUN/Creatinine Ratio Glucose Calcium b-Hydroxybutyric mmol/L Urine Color Urine Clarity Urine pH Ur Specific [place] Urine Protein Urine Glucose (UA) Urine Ketones [...] 1-2 Days if not improving Print Language: Cuban Disposition Disposition: Home, Self Care What to do if you have Problems For any increased pain, shortness of breath, bleeding, nausea or vomiting, chestpain, or any unexpected problems, contact your Primary Care Provider. Call [facility] ([phone]) or report tothe closest Emergency Room. Call 911 if necessary. 12/14/24 0213 Cosigner Signature (if applicable): CC: No Primary Care Physician ~ Signed [facility]05-07-2025 Discharge summary Author Juan Rivas [facility] Note Date/Time December 14, 2024 2:13am [facility] Medical Records Department [address] [place] [address] Emergency Department Summary 12/13/24 MR#: [id number] Acct: [id number] Name: UNA COSBY Rep #:[id number] : 1995 29 From: Juan Rivas MD [...] he cannot keep anything down all day. [facility] Medical History Learning difficulty due to [...] % (Auto) 53.8 Lymph % (Auto) 33.9 [place] % (Auto) 8.1 Eos % (Auto) 3.3 [...] Clarity Clear Urine pH 7.0 Ur Specific [place] 1.005 Urine Protein 30 H Urine Glucose [...] (Auto) Neut % (Auto) Lymph % (Auto) [place] % (Auto) Eos % (Auto) Baso % (Auto) Absolute Neuts (auto) Absolute Lymphs (auto) Nucleated RBC % Sodium 136 Potassium 3.6 Chloride 103 Carbon Dioxide 24.0 Anion Gap 9 BUN 10 Creatinine 0.64 L Estim Creat Clear Calc 126.32 Est GFR (MDRD) Non-Af 133 BUN/Creatinine Ratio 16.2 Glucose 275 H Calcium 7.8 b-Hydroxybutyric mmol/L Urine Color Urine Clarity Urine pH Ur Specific [place] Urine Protein Urine Glucose (UA) Urine Ketones [...] (Auto) Neut % (Auto) Lymph % (Auto) [place] % (Auto) Eos % (Auto) Baso % (Auto) Absolute Neuts (auto) Absolute Lymphs (auto) Nucleated RBC % Sodium Potassium Chloride Carbon Dioxide Anion Gap BUN Creatinine Estim Creat Clear Calc Est GFR (MDRD) Non-Af BUN/Creatinine Ratio Glucose Calcium b-Hydroxybutyric mmol/L Urine Color Urine Clarity Urine pH Ur Specific [place] Urine Protein Urine Glucose (UA) Urine Ketones [...] 1-2 Days if not improving Print Language: Cuban Disposition Disposition: Home, Self Care What to do if you have Problems For any increased pain, shortness of breath, bleeding, nausea or vomiting, chestpain, or any unexpected problems, contact your Primary Care Provider. Call [facility] ([phone]) or report to the closest Emergency Room. Call 911 if necessary. 12/14/24212 <Electronically signed by Juan Rivas MD> Cosigner Signature (if applicable): CC: No Primary Care Physician ~ Signed [facility] Work Phone: 1(100) 126-509703-13-2025 Discharge summary [facility] Medical Records Department [address] [place] [address] Emergency Department Summary 10/19/24 MR#: [id number] Acct: [id number] Name: UNA COSBY Rep #:[id number] : 1995 29 From: Keisha Maldonado PCP: [...] complaints or concerns reported at this time. [facility] Medical History Learning difficulty due to [...] % (Auto) 63.5 Lymph % (Auto) 27.7 [place] % (Auto) 6.2 Eos % (Auto) 1.5 [...] Clarity Clear Urine pH 6.0 Ur Specific [place] 1.010 Urine Protein 100 H Urine Glucose [...] No evidence of acute disease. 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 Call [facility] ([phone]) or report tothe closest Emergency Room. Call 911 if necessary. 10/19/24 0516 Cosigner Signature (if applicable): CC: No Primary Care Physician ~ Signed [facility]03-13-2025 Radiology Diagnostic study note [facility] Imaging Services [address] [place], [place] [address] Chest PA and Lateral MR#: [id number] Acct: [id number] Name: UNA COSBY Rep #: [id number] : 1995 M 29 From: Damian Massey MD PCP: Dr. Deangelo Noel MD Status: WA E ER Study:Chest PA and Lateral Date of Exam: 10/19/24 Exam# [id number] Ordering Dr: Danielle Handy DO PROCEDURE: CHEST PA AND LATERAL REASON FOR EXAM: CHEST PAIN TECHNIQUE: PA and lateral views of the chest. COMPARISON: 02/15/2023 FINDINGS: The lungs are clear. The cardiac and mediastinal contours are within limits. The visualized osseousstructures appear within limits. RAD/Chest PA and Lateral IMPRESSION: No evidence of acute disease. Reading Location: [id number] CC: Dr. Keisha Handy DO; Dr. Deangelo Noel MD ~ Client Development Consultant: Signed [facility]05-28-[address] Zarate [facility] January 04, 2023 12:28am Note Date/Time January 03, 2023 11:04 pm [facility] Medical Records Department [address] [place] [address] Emergency Department Summary 01/03/23 MR#: [id number] Acct: [id number] Name: UNA COSBY Rep #:[id number] : 1995 27 From: Darren Maldonado PCP: [...] 45.8 L Lymph % (Auto) 42.3 H [place] % (Auto) 7.8 Eos % (Auto) 3.2 [...] asinus tachycardia with a rate of 117. WA interval, QRS interval, and QTc intervals were all normal. [place] was normal. There are no acute ST [...] your Primary Care Provider. Call [facility] ([phone]) or report to the closest Emergency Room. Call 911 if necessary. 01/04/23 0028 <Electronically signed by Darren Zarate DO> Cosigner Signature (if applicable): CC: Dr. Deangelo Noel MD ~ Signed [facility] Work Phone: 1(283) 662-243104-27-[address] Calvillo [facility] December 03, 2022 11:22pm Note Date/Time December 03, 2022 9:2 1pm [facility] Medical Records Department [address] [place] [address] Emergency Department Summary 12/03/22 MR#: [id number] Acct: [id number] Name: UNA COSBY Rep #:[id number] : 1995 27 From: Edgar Calvillo DO [...] Denies drug use. No history of DVT/PE. [facility] Medical History Anxiety Depression H/O fracture of [...] % (Auto) 62.3 Lymph % (Auto) 26.9 [place] % (Auto) 8.0 Eos % (Auto) 2.0 [...] your Primary Care Provider. Call [facility] ([phone]) or report to the closest Emergency Room. Call 911 if necessary. 12/03/222321 <Electronically signed by Edgar Calvillo DO> Cosigner Signature (if applicable): CC: Dr. Deangelo Noel MD ~ Signed [facility] Work Phone: 1(883) 297-461102-27-2023 Miscellaneous Notes* Telephone Encounter - Lilly Sutherland [...] the pt is a pt at the [facility] -letter must be within the last 4 years -letter must be signed and dated by doctor or staff member There is no PCP listed under the pt but has been seen by Dr. Noel's in the past. Please call pt with any information. documented [facility] encounter[facility] Miscellaneous Notes* Telephone Encounter - Rajwinder [...] medicine. Phillip Howe APRN.CNP documented in this encounterBrecksville [facility]01-16-2023 Miscellaneous Notes* Telephone Encounter - Phillip [...] advise. Rajwinder Rosales LPN documented in this encounterBrecksville [facility]12-01-2022 Miscellaneous Notes* Telephone Encounter - Parvin Hannah Ma - 07/09/2022 2:05 PM EST PA received from pharmacy but when accessing it through [facility] state PA not needed. Did verifywith pharmacy medication goes through with no issue an is covered. Parvin Hannah Ma documented in this encounterBrecksville [facility]11-29-2022 History of Present illness Narrative* Phillip Howe APRN.CNP - 07/07/2022 2:00 PM EST Patient came to appointment today. He was in the [facility] 1 [facility]/2 hours ago with complaints of chest pain, shortness of breath and lungs filling up with fluids. Had been out of his insulin for a few days. He was triaged by a provider in [facility] and sent to the [...] meals. Give along with SSI coverage Insulin [place], Disposable, (BD ULTRAFINE III MINI PEN) 31 gauge x 3/16 100 Each 11 Sig: as directed for insulin injections 3 times a day Insulin Syringe-Needle U-100 (BD INSULIN SYRINGE ULTRAFINE) 0.3 mL 31 gauge x 5/16 100 Each 11 Sig: Use 4 times daily and prn Phillip Howe APRN.CNP documented in this encounterBrecksville [facility]11-29-2022 History of Present illness Narrative* Isaiah Caldera APRN.CNP - 07/07/2022 12:09 PM EST Patient triaged at [facility]. States has not taken insulin for few days/out of medicine. Reportslungs are filling up with fluid and reports constant chest pain. I will refer to ER. Mildly ill appearing but no distress. documented in this encounterBrec[facility]11-04-2022 Miscellaneous Notes* Telephone Encounter - Meri [...] planned Deangelo Noel MD documented in this encounterBrec[facility]ville [facility]11-01-2022 Miscellaneous Notes* Telephone Encounter - Deangelo [...] name and birthdate: Yes Call received from [facility] at 4:33 PM to report an urgent value for glucose with a result of 555. Dr. Noel was notified of the result at 4:34PM. Marcy Ponce Lpn documented in this encounterBrecksville [facility]11-01-2022 Miscellaneous Notes* Telephone Encounter - Phillip Howe APRN.CNP - 06/09/2022 10:53 AM EDT The following approved medication requests have been transmitted electronically. Requested Prescriptions Pending Prescriptions Disp Refills Insulin [place], Disposable, (BD ULTRAFINE III MINI PEN) 31 [...] meals. Give along with SSI coverage Insulin [place], Disposable, (BD ULTRAFINE III MINI PEN) 31 [...] advise. Sindy Brar Pss documented in this encounterBrecksville [facility]10-30-2022 Miscellaneous Notes* Telephone Encounter - Radha Hameed APRN.CNP - 06/07/2022 11:09 AM EDT Medications reordered today, needs appointment for further refills. Radha Hameed APRN.CNP documented in this encounterBrecksville [facility]07-27-2022 History of Present illness Narrative* Rajwinder Rosales LPN - 03/04/2022 9:29 AM EDT TRANSITION CARE MANAGEMENT (TCM) INITIAL CONTACT Account Specialist Outreach Provider Action/FYI: Unable to reach Pt. mailbox is not set up and and other number not working. Called [facility]2 Initial contact with patient post discharge, spoke to . Patient identified by name and . TRANSITION CARE MANAGEMENT INITIAL OUTREACH DOCUMENTATION: No flowsheet data found. SUMMARY: -Pt discharged from [facility] on 03/03/22. -Admitted for: High blood surgars [...] records from recent hospitalization: documented in this encounterBrecksville [facility]04-12-2022 History of Present illness Narrative* Sabrina [...] Care Gap or Scheduling/Wellness visits Payer: Payor: [employer] MEDICAID / Plan: [employer] MEDICAID / Product Type: Medicaid / Care [...] field. Phillip Howe APRN.CNP documented in this encounterBrecksville [facility]11-29-2021 Miscellaneous Notes* Telephone Encounter - Phillip [...] 07/01. Patricia Ordoñez LPN documented in this encounterBrecksville [facility]10-21-2010 History of Past illness Narrative* Problem Noted Date Resolved Date Diabetes mellitus type 1 with ketoacidosis 05/2905/29/2010 documented as of this encounter (statuses as of 11/18/2021) [facility] of Past illness Narrative* Problem Noted Date Resolved Date Diabetes mellitus type 1 with ketoacidosis 05/2905/29/2010 documented as of this encounter (statuses as of 12/09/2021) [facility] of Past illness Narrative* Problem Noted Date Resolved Date Diabetes mellitus type 1 with ketoacidosis 05/2905/29/2010 documented as of this encounter (statuses as of 04/06/2022) [facility] of Past illness Narrative* Problem Noted Date Resolved Date Diabetes mellitus type 1 with ketoacidosis 05/2905/29/2010 documented as of this encounter (statuses as of 06/07/2022) [facility] of Past illness Narrative* Problem Noted Date Resolved Date Diabetes mellitus type 1 with ketoacidosis 05/2905/29/2010 documented as of this encounter (statuses as of 06/09/2022) [facility] of Past illness Narrative* Problem Noted Date Resolved Date Diabetes mellitus type 1 with ketoacidosis 05/2905/29/2010 documented as of this encounter (statuses as of 06/09/2022) [facility] of Past illness Narrative* Problem Noted Date Resolved Date Diabetes mellitus type 1 with ketoacidosis 05/2905/29/2010 documented as of this encounter (statuses as of 06/12/2022) [address]21-2010 History of Past illness Narrative* Problem Noted Date Resolved Date Diabetes mellitus type 1 with ketoacidosis 05/2905/29/2010 documented as of this encounter (statuses as of 07/07/2022) [facility] of [facility] Narrative* Problem Noted Date Resolved Date Diabetes mellitus type 1 with ketoacidosis 05/2905/29/2010 documented as of this encounter (statuses as of 07/07/2022) [facility] of [facility] Narrative* Problem Noted Date Resolved Date Diabetes mellitus type 1 with ketoacidosis 05/2905/29/2010 documented as of this encounter (statuses as of 07/09/2022) [facility] of [facility] illness Narrative* Problem Noted Date Resolved Date Diabetes mellitus type 1 with ketoacidosis 05/2905/29/2010 documented as of this encounter (statuses as of 08/24/2022) [facility] of [facility] illness Narrative* Problem Noted Date Resolved Date Diabetes mellitus type 1 with ketoacidosis 05/2905/29/2010 documented as of this encounter (statuses as of 09/25/2022) [facility] of [facility] Narrative* Problem Noted Date Resolved Date Diabetes mellitus type 1 with ketoacidosis 05/2905/29/2010 documented as of this encounter (statuses as of 10/05/2022) [facility] of [facility] illness Narrative* Problem Noted Date Resolved Date Diabetes mellitus type 1 with ketoacidosis 05/2905/29/2010 documented as of this encounter (statuses as of 10/06/2022) [facility]Dis[facility] summary Author Sandy Mcclain [facility] November 17, 2022 2:01am Note Date/Time November 17, 2022 1:1 8am [facility] Medical Records Department [address] [place] [address] Emergency Department Summary 11/17/22 MR#: [id number] Acct: [id number] Name: ALEAUNA JUAN Rep #:[id number] : 1995 27 From: Jimmie Palomino MD [...] Patient states he needs to see a glazier stained glass. But he has not made any calls tosee them despite referrals. He states his phone only works on Wi-Fi. I have recommended he try to use a phone at work or borrow a friend's phone to make those calls as it is important that he gets in. Patient denies any travel surgery immobilization personal or family history of DVT or PE. [facility] Medical History Anxiety Depression H/O fracture of [...] % (Auto) 49.8 Lymph % (Auto) 38.9 [place] % (Auto) 7.7 Eos % (Auto) 2.8 [...] cycle. No acute ST elevation or depression. [place] interval, QRS duration and QTc are normal. [...] your Primary Care Provider. Call [facility] ([phone]) or report to the closest Emergency Room. [...] applicable): cc: Deangelo Noel MD ~* Signed [facility] Work Phone: Discharge summary Author Keisha Handy [facility] Note Date/Time October 19, 2024 5:1 6am [facility] Medical Records Department [address] [place] [address] Emergency Department Summary 10/19/24 MR#: [id number] Acct: [id number] Name: UNA COSBY Rep #:[id number] : 1995 29 From: eKisha Maldonado PCP: Care Physician,No Primary Status :REG [...] complaints or concerns reported at this time. [facility] Medical History Learning difficulty due to [...] % (Auto) 63.5 Lymph % (Auto) 27.7 [place] % (Auto) 6.2 Eos % (Auto) 1.5 [...] Clarity Clear Urine pH 6.0 Ur Specific [place] 1.010 Urine Protein 100 H Urine Glucose [...] No evidence of acute disease. 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 Call [facility] ([phone]) or report to the closest Emergency Room. Call 911 if necessary. 10/19/24 0516 <Electronically signed by Keisha Handy DO> Cosigner Signature (if applicable): CC: No Primary Care Physician ~ Signed [facility] Work Phone: Discharge summary Author Alo Zambrano [facility] Note Date/Time February 05, 2025 4:45 pm [facility] Medical Records Department [address] [facility] [place] [address] Discharge Summary 02/05/25 1642 MR#: [id number] Acct: [id number] Name: UNA COSBY Rep #:[id number] : 1995 29 From: Alo Lombardo PCP: [...] closed. [facility]. Patient decided [...] % (Auto) 55.6, Lymph % (Auto) 31.1, [place] % (Auto) 9.0, Eos % (Auto) 3.4, [...] Clarity Clear, Urine pH 6.0, Ur Specific [place] 1.010, Urine Protein 30 H, Urine Glucose [...] % (Auto) 52.3, Lymph % (Auto) 34.1, [place] % (Auto) 8.5, Eos % (Auto) 4.2, [...] Medical Advice Charges/Coding Visit Charges Inpatient E&M: 34015 Disch Hosp >30min 02/05/25 1645 <Electronically signed by Alo Zambrano MD> Cosigner Signature (if applicable): CC: Dr. Alo Zambrano MD; No Primary Care Physician~ Signed [facility] Work Phone: Evaluation note* Diagnosis Uncontrolled type 1 diabetes mellitus with hypoglycemia without coma (HCC)- Primary documented in this encounter [facility] note* Diagnosis Uncontrolled type 1 diabetes mellitus with hypoglycemia without coma (HCC) documented in this encounter [facility] noteNo assessment information availableWooMercy Health St. [facility] Work Phone: Evaluation note* Diagnosis Onset Date Resolution Status Acute dehydration acute Acute hyperkalemia acute [place] (acute kidney injury) ac wiyot DKA, type 1 acute Hyperphosphatemia acute Noncompliance with medication regimen acute Pseudohyponatremia acute [facility] Work Phone: Evaluation note* Diagnosis Uncontrolled type 1 diabetes mellitus with hypoglycemia without coma (HCC) documented in this encounter [facility] note* Diagnosis Uncontrolled type 1 diabetes [...] spinal cord injury documented in this encounter [facility] note* Diagnosis Onset Date Resolution Status Noncompliance with medication regimen acute Acute dehydration resolved Acute hyperkalemia resolved [place] (acute kidney injury) re solved DKA, type 1 resolved Hyperphosphatemia resolved Pseudohyponatremia resolved [facility] Work Phone: Evaluation note* Diagnosis Chest [...] stated as uncontrolled [facility] Diagnosis Onset Date Resolution Status FRANKLIN (acute kidney injury) ac wiyot DKA (diabetic ketoacidoses) acute Hematemesis of unknown cause acute Lactic acidosis acute Noncompliance with medication regimen acute [facility] Work Phone: Evaluation note* Diagnosis Uncontrolled type 1 diabetes mellitus with hypoglycemia without coma (HCC) [facility] [place] [facility]* Diagnosis Onset Date Resolution Status Noncompliance with medication regimen acute FRANKLIN (acute kidney injury) re solved DKA (diabetic ketoacidoses) resolved Hematemesis of unknown cause resolved Lactic acidosis resolved [facility] Work Phone: Evaluation note* Diagnosis Onset Date Resolution Status Admit Date DKA (diabetic ketoacidosis) acute February 05, 2025 3:44am Hyperglycemia acute February 05, 2025 3:44am Vomiting acute February 05 3:44am [facility] Work Phone: History and physical note Author Sarah Oh [facility] Note Date/Time February 05, 2025 4:01 am [facility] Medical Records Department [address] [place] [address] H&P Exam - Hospitalist 02/05/25 0343 MR#: [id number] Acct: [id number] Name: UNA COSBY Rep #:[id number] : 1995 29 From: Sarah Oh MD [...] reported, Tobacco use who presents to the [facility] ED on 02/05/2025 with history of [...] 1 and initiated on an insulin drip. [facility] Medical History Noncompliance with medication regimen [...] % (Auto) 55.6, Lymph % (Auto) 31.1, [place] % (Auto) 9.0, Eos % (Auto) 3.4, [...] reported, Tobacco use who presents to the [facility] ED on 02/05/2025 with history of [...] prophylaxis: Lovenox. Charges/Coding Visit Charges Inpatient E&M: 95395 Init Hosp L3 02/05/25 0401 <Electronically signed by Sarah Oh MD> Cosigner Signature (if applicable): CC: Dr. Sarah Oh MD; No Primary Care Physician~ Signed [facility] Work Phone: History and physical note Author Marcelina Erickson [facility] Note Date/Time February 27, 2025 3:01 pm [facility] Medical Records Department [address] [place] [address] H&P Exam - Hospitalist 02/27/25 1452 MR#: [id number] Acct: [id number] Name: UNA COSBY Rep #:[id number] : 1995 29 From: Marcelina Erickson MD PCP: Care Physician,No Primary Status :ADM IN Location: ICU CVICU20 3-1 HPI - General General Date of Admission: 02/27/25 Date of Service: 02/27/25 Chief Complaint: Heart palpitations HPI Narrative UNA COSBY, is [id number] male history of type 1 diabetes and tobacco usepresented to [facility] ED 02/27/2025 with complaints of heart [...] at bedtime. Per patient he reports compliance [facility] Medical History Noncompliance with medication regimen [...] Neut % (Auto) 59.1, Lymph % (Auto) 28.6,[place] % (Auto) 7.6, Eos % (Auto) 3.4, [...] Clarity Clear, Urine pH 6.0, Ur Specific [place] 1.010, Urine Protein 15 H, Urine Glucose [...] if patient does not already have an charge auditor would benefit from establishingcare with 1 # [...] Erickson MD Charges/Coding Visit Charges Inpatient E&M: 03312 Init Hosp L2 02/27/25 1501 <Electronically signed by Marcelina Erickson MD> Cosigner Signature (if applicable): CC: Dr. Marcelina Erickson MD; No Primary Care Physician~ Signed [facility] Work Phone: Hospital Discharge instructions Additional [...] care physician for further outpatient evaluation and management.[facility] Work Phone: Hospital Discharge instructions Additional [...] workup was largely normal with no findings golf course assistant with heart attack or other acute cardiac/heart processWSelect [facility] Work Phone: Hospital Discharge instructions Additional Instructions Follow-up with your PCP and return for any worsening symptoms.[facility] Work Phone: Hospital Discharge instructions Additional Instructions I am not sure what the cause of your palpitations and is. Your screening labs look normal other than very high glucose over 480. It is important you take your insulin as scheduled and make good food choices for a diabetic diet. 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 Specialist Expl anation Advance Directive(s) 03/23/2018 2:01 PM Advance Directive Response Recorded Date/ Time Advance Directives No October 08 6:31pm Living Will No January 31, 2022 10:37am Power of [place] No January 31 10:37am Advance Directive Response Recorded Date/ Time Advance Directives No October 08 6:31pm Living Will No 2022 10:52am Power of [place] No March 02 10:52am Advance Directive Response Recorded Date/ Time Advance Directives No October 08 6:31pm Living Will No 2022 12:30pm Power of [place] No March 02 12:30pm Advance Directive Response Recorded Date/ Time Advance Directives No October 08 5:31pm Living Will No June 30 10:32pm Power of [place] No June 30, 2022 10:32pm Advance Directive Response Recorded Date/ Time Advance Directives No October 08 5:31pm Living Will No August 18 11:46am Power of [place] No August 18, 2022 11:46am Advance Directive Response Recorded Date/ Time Advance Directives No October 08 5:31pm Living Will No August 24 9:15pm Power of [place] No August 24, 2022 9:15pm Advance Directive Response Recorded Date/ Time Advance Directives No October 08 5:31pm Living Will No October 13, 2022 3:59am Power of [place] No October 13 3:59am Advance Directive Response Recorded Date/ Time Advance Directives No October 08 6:31pm Living Will No October 13, 2022 4:59am Power of [place] No October 13 4:59am Advance Directive Response Recorded Date/ Time Advance Directives No October 08 6:31pm Living Will No November 17, 2022 2:01am Power of [place] No November 17 2:01am Advance Directive Response Recorded Date/ Time Advance Directives No October 08 6:31pm Living Will No December 03, 2022 8:34pm Power of [place] No December 03 8:34pm Advance Directive Response Recorded Date/ Time Advance Directives No October 08 6:31pm Living Will No December 09, 2022 6: 27pm Power of [place] No December 09, 2022 6:27pm Advance Directive Response Recorded Date/ Time Advance Directives No October 08 6:31pm Living Will No January 03, 2023 1 0:21pm Power of [place] No January 03, 2023 10:21pm Advance Directive Response Recorded Date/ Time Living Will No October 19, 2024 12:14am Power of [place] No October 19 12:14am Advance Directives No October 08 6:31pm Advance Directive Response Recorded Date/ Time Living Will No November 11, 2024 5:45pm Do you have a Healthcare Power of [place]? No November 11, 2024 5:45pm Living Will No October 19, 2024 12:14am Do you have a Healthcare Power of [place]? No October 19, 2024 12:14am Advance Directives No October 08 6:31pm Advance Directive Response Recorded Date/ Time Living Will No November 11, 2024 5:45pm Do you have a Healthcare Power of [place]? No November 11, 2024 5:45pm Do you have a Healthcare Power of [place]? No December 12, 2024 1:02pm Living Will No October 19, 2024 12:14am Do you have a Healthcare Power of [place]? No October 19, 2024 12:14am Do you have a Healthcare Power of [place]? No December 13, 2024 9:49pm Advance Directives No October 08 6:31pm Advance Directive Response Recorded Date/ Time Living Will No November 11, 2024 5:45pm Do you have a Healthcare Power of [place]? No November 11, 2024 5:45pm Do you have a Healthcare Power of [place]? No December 12, 2024 1:02pm Do you have a Healthcare Power of [place]? No January 26, 2025 12:12pm Living Will No October 19, 2024 12:14am Do you have a Healthcare Power of [place]? No October 19, 2024 12:14am Do you have a Healthcare Power of [place]? No December 13, 2024 9:49pm Advance Directives No October 08 6:31pm Advance Directive Response Recorded Date/ Time Living Will No November 11, 2024 5:45pm Do you have a Healthcare Power of [place]? No November 11, 2024 5:45pm Do you have a Healthcare Power of [place]? No December 12, 2024 1:02pm Do you have a Healthcare Power of [place]? No January 26, 2025 12:12pm Living Will No October 19, 2024 12:14am Do you have a Healthcare Power of [place]? No October 19, 2024 12:14am Do you have a Healthcare Power of [place]? No December 13, 2024 9:49pm Do you have a Healthcare Power of [place]? No February 05, 2025 2:23am Advance Directives No October 08 6:31pm Advance Directive Response Recorded Date/ Time Living Will No November 11, 2024 5:45pm Do you have a Healthcare Power of [place]? No November 11, 2024 5:45pm Do you have a Healthcare Power of [place]? No December 12, 2024 1:02pm Do you have a Healthcare Power of [place]? No January 26, 2025 12:12pm Living Will No October 19, 2024 12:14am Do you have a Healthcare Power of [place]? No October 19, 2024 12:14am Do you have a Healthcare Power of [place]? No December 13, 2024 9:49pm Do you have a Healthcare Power of [place]? No February 05, 2025 4:26am Advance Directives No October 08 6:31pm Advance Directive Response Recorded Date/ Time Living Will No November 11, 2024 5:45pm Do you have a Healthcare Power of [place]? No November 11, 2024 5:45pm Do you have a Healthcare Power of [place]? No December 12, 2024 1:02pm Do you have a Healthcare Power of [place]? No January 26, 2025 12:12pm Do you have a Healthcare Power of [place]? No December 13, 2024 9:49pm Do you have a Healthcare Power of [place]? No February 05, 2025 4:26am Do you have a Healthcare Power of [place]? No February 27, 2025 12:52pm Advance Directives [...] with hypoglycemia without coma (HCC) Radha Hameed, POST OFFICE MANAGER.HEAD OF BUSINESS DEVELOPMENT [address] [place] [address] Referral ID Status Reason Start Date Expiration Date Visits Re quested Visits Authorized [id number] Closed 1 1 Additional Source Comments (unrecognized sect ion and content) No Status Records FoundNo Status Records FoundNo Status Records FoundNo Status Records FoundNo Status Records Found INFORMATION SOURCE (unrecogn ized section and content) DATE CREATED AUTHOR 01/25/2018 [facility] DATE CREATED AUTHOR AUTHOR'S ORGANIZ ATION 05/20/2018 [facility] DATE CREATED AUTHOR AUTHOR'S ORGANIZ ATION 05/27/2018 [facility] DATE CREATED AUTHOR AUTHOR'S ORGANIZ ATION 10/12/2024 [facility] DATE CREATED AUTHOR AUTHOR'S ORGANIZ ATION 02/25/2025 [facility] Source Comments (unrecognize d section and content) In the event this informatio n is protected by the Federal Confidentiality of Alcohol and Drug Abuse Patient Records regulations: The Federal rules restrict any use of the information to criminally investigate or prosecute any alcohol or drug abuse patient.[facility] the event this information is protected by the Federal Confidentiality of Alcohol and Drug Abuse Patient Records regulations: The Federal rules restrict any use of the information to criminally investigate or prosecute any alcohol or drug abuse patient.[facility] the event this information is protected by the Federal Confidentiality of Alcohol and Drug Abuse Patient Records regulations: The Federal rules restrict any use of the information to criminally investigate or prosecute any alcohol or drug abuse patient.[facility] the event this information is protected by the Federal Confidentiality of Alcohol and Drug Abuse Patient Records regulations: The Federal rules restrict any use of the information to criminally investigate or prosecute any alcohol or drug abuse patient.[facility] the event this information is protected by the Federal Confidentiality of Alcohol and Drug Abuse Patient Records regulations: The Federal rules restrict any use of the information to criminally investigate or prosecute any alcohol or drug abuse patient.[facility] HospitalIn the event this information is protected [...] or prosecute any alcohol or drug abuse patient.[facility] the event this information is protected by the Federal Confidentiality of Alcohol and Drug Abuse Patient Records regulations: The Federal rules restrict any use of the information to criminally investigate or prosecute any alcohol or drug abuse patient.[facility] the event this information is protected by the Federal Confidentiality of Alcohol and Drug Abuse Patient Records regulations: The Federal rules restrict any use of the information to criminally investigate or prosecute any alcohol or drug abuse patient.[facility] the event this information is protected by the Federal Confidentiality of Alcohol and Drug Abuse Patient Records regulations: The Federal rules restrict any use of the information to criminally investigate or prosecute any alcohol or drug abuse patient.[facility] HospitalIn the event this information is protected by the Federal Confidentiality of Alcohol and Drug Abuse Patient Records regulations: The Federal rules restrict any use of the information to criminally investigate or prosecute any alcohol or drug abuse patient.[facility] the event this information is protected by the Federal Confidentiality of Alcohol and Drug Abuse Patient Records regulations: The Federal rules restrict any use of the information to criminally investigate or prosecute any alcohol or drug abuse patient.[facility] the event this information is protected by the Federal Confidentiality of Alcohol and Drug Abuse Patient Records regulations: The Federal rules restrict any use of the information to criminally investigate or prosecute any alcohol or drug abuse patient.[facility] HospitalIn the event this information is protected by the Federal Confidentiality of Alcohol and Drug Abuse Patient Records regulations: The Federal rules restrict any use of the information to criminally investigate or prosecute any alcohol or drug abuse patient.[facility] Reason for Visit (unrecogniz ed section [...] Care Teams (unrecognized sec tion and content) Marketing Strategy Lead Relationship Specialty Start Date End Date Deangelo Noel MD [address] [place] [address] PCP - General Family Practice 09/30/18 [facility] [address] [place] [address] Pharmacist Pharmacy 07/14/18 Darren Zarate, [address] [place] [phone] Accounting Professor Emergency Medicine 06/04/20 Marketing Strategy Lead Relationship Specialty Start Date End Date Deangelo Noel MD [address] [place] [address] PCP - General Family Practice 09/30/18 [facility] [address] [place] [address] Pharmacist Pharmacy 07/14/18 Darren Zarate DO [address] [place] [id number] Accounting Professor Emergency Medicine 06/04/20 Marketing Strategy Lead Relationship Specialty Start Date End Date Deangelo Noel MD [address] [place] [address] PCP - General Family Practice 09/30/18 Fidelina Rogel, [facility] [address] [place] [address] Pharmacist Pharmacy 07/14/18 Darren Zarate, DO [address] [place] [address] Accounting Professor Emergency Medicine 06/04/20 Marketing Strategy Lead Relationship Specialty Start Date End Date Deangelo Noel MD [address] [facility] [place] [address] PCP - General Family Medicine 09/30/18 PebblesFidelina ibrahim, [facility] [address] [place] [address] Pharmacist Pharmacy 07/14/18 Darren Zarate, DO [address] [place] [address] Accounting Professor Emergency Medicine 06/04/20 Marketing Strategy Lead Relationship Specialty Start Date End Date Deangelo Noel MD [address] [facility] [place] [address] PCP - General Family Medicine 09/30/18 Fidelina Rogel, [facility] [address] [place] [address] Pharmacist Pharmacy 07/14/18 Darren Zarate, DO [address] [place] [address] Accounting Professor Emergency Medicine 06/04/20 Marketing Strategy Lead Relationship Specialty Start Date End Date Deangelo Noel MD [address] [place] [address] PCP - General Family Medicine 09/30/18 GreshamFidelina ibrahim, [facility] [address] [place] [address] Pharmacist Pharmacy 07/14/18 Darren Zarate, DO [address] [place] [address] Accounting Professor Emergency Medicine 06/04/20 Marketing Strategy Lead Relationship Specialty Start Date End Date eDangelo Noel MD [address] [place] [address] PCP - General Family Medicine 09/30/18 [facility] [address] [place] [address] Pharmacist Pharmacy 07/14/18 Darren Zarate, DO [address] [place] [address] Accounting Professor Emergency Medicine 06/04/20 Marketing Strategy Lead Relationship Specialty Start Date End Date Deangelo Noel MD [address] [place] [address] PCP - General Family Medicine 09/30/18 [facility] [address] [place] [address] Pharmacist Pharmacy 07/14/18 Darren Zarate DO [address] [place] [address] Accounting Professor Emergency Medicine 06/04/20 Marketing Strategy Lead Relationship Specialty Start Date End Date Deangelo Noel MD [address] [place] [address] PCP - General Family Medicine 09/30/18 [facility] [facility] [address] [place] [address] Pharmacist Pharmacy 07/14/18 Darren Zarate DO [address] [place] [address] Accounting Professor Emergency Medicine 06/04/20 Team Status: Active Member [...] Dr. Gatito Reed DO Emergency Provider Active Marketing Strategy Lead Relationship Specialty Start Date End Date Phillip Howe, POST OFFICE MANAGER.HEAD OF BUSINESS DEVELOPMENT [address] [place] [address] PCP - General Family Medicine 09/22/22 09/22/22 [facility] [address] [place] [address] Pharmacist Pharmacy 07/14/18 Darren Zarate DO [address] [place] [address] Accounting Professor Emergency Medicine 06/04/20 Marketing Strategy Lead Relationship Specialty Start Date End Date [facility] [address] [place] [address] Pharmacist Pharmacy 07/14/18 Darren Zarate DO [address] [place] [phone] Accounting Professor Emergency Medicine 06/04/20 Marketing Strategy Lead Relationship Specialty Start Date End Date Fidelina [place], [facility] [address] [place] [address] Pharmacist Pharmacy 07/14/18 Darren Zarate, [address] [place] [address] Accounting Professor Emergency Medicine 06/04/20 Team Status: Inactive Member [...] Keisha Handy DO Emergency Provider Active Dr. Isirdo Cruz MD Admit Provider, At tending Provider, [...] 11, 2024 End: November 11, 2024 Dr. tSeven Donaldson DO Attending Provider Activ e Start: [...] BE BASED ON THE PRIMARY CLINICAL RECORDS. [facility] [employer] [facility]. provides no warranty or guarantee of the accuracy or completeness of information in this document.
[2025-02-27 21:22] LABS: Anion Gap 9 (5-15); BUN 6 mg/dL (4-19); BUN/Creat Ratio 13.5 RATIO (10-20); Calcium,Total 8.0 mg/dL (7.6-11.0); Carbon Dioxide 25.0 mmol/L (21.0-32.0); Chloride 106 mmol/L (98-108); Estimated Creatinine Clearance 207.10 ml/min (50-250); Glucose 107 mg/dL (70-99); Potassium 3.2 mmol/L (3.3-5.1)
--- NOTE | 2025-02-27 21:47 | PCM.HOSP.N ---
Hospitalist Note AG closed x 2, bicarb 25. Will transition off insulin drip to home insulin regimen. Will transition to ADA diet. If no issues with transition will plan to change level of care to MS status.
[2025-02-27] MEDS: Insulin Glargine-YFGN 100 UNIT/ML Pen 35 UNIT SC (22:08)
[2025-02-27] MEDS: 0.9% Saline Lock 10 ML Syringe IV (22:08)
[2025-02-28 04:00] VITALS: BP 123/79; PULSE 97; RESP 18; TEMP 36.4; O2SAT 97
[2025-02-28 04:23] VITALS: BMI 16.6
[2025-02-28] MEDS: 0.9% Saline Lock 10 ML Syringe IV (04:24)
[2025-02-28 04:33] LABS: Hematocrit 37.2 % (40-54); Hemoglobin 11.9 g/dL (13.0-16.5); Immature Granulocytes Count 0.050 X10^3/uL (0.0-0.0); Mean Corp Hgb Conc 32.0 g/dL (32-36); Mean Corpuscular Volume 76.7 fL (80-94); Mean Platelet Vol. 10.8 fl (6.2-12.0); NRBC Flagged by Analyzer 0 % (0-5); POSITIVE DIFFERENTIAL YES; POSITIVE MORPHOLOGY YES; Platelet Count 293 K/mm3 (150-450); RBC Distribution Width CV 17.2 % (11.6-14.6); RBC Distribution Width SD 47.5 fl (35.1-43.9); Red Blood Count 4.85 M/mm3 (4.6-6.2); White Blood Count 14.3 K/mm3 (4.4-11.0)
[2025-02-28 05:05] LABS: Differential Indicated SCAN CRITERIA MET
[2025-02-28 05:17] LABS: Anion Gap 13 (5-15); BUN 8 mg/dL (4-19); BUN/Creat Ratio 17.1 RATIO (10-20); Calcium,Total 8.2 mg/dL (7.6-11.0); Carbon Dioxide 21.5 mmol/L (21.0-32.0); Chloride 105 mmol/L (98-108); Estimated Creatinine Clearance 209.73 ml/min (50-250); Glucose 131 mg/dL (70-99); Magnesium 1.9 mg/dL (1.5-2.2); Potassium 3.8 mmol/L (3.3-5.1)
[2025-02-28 06:28] LABS: Differential Comment SCANNED
--- NOTE | 2025-02-28 08:53 | DCINST_ITS ---
Discharge Instructions DC O2, CPAP, BIPAP needs Home O2 Discharge instructions: No Dressing / Incision Discharge Activity: Return to Normal Activity Dressing / Incision Call your doctor if you observe: Fever of 101 or Higher, Shortness of breath, Dizziness, Fainting spells, Swelling in the ankles, Chest pain and Increased palpitations (irregular heartbeat) Follow Up Care Test Results: Test results from this visit will be discussed in further detail at your follow- up appointment, if applicable. Discharge Plan Admission Admit Date/Time: 02/27/25 14:52 Attending Provider: Berny Nelson Primary Care Provider: Care ,Cecy Primary Consulting Providers: Marcelina Erickson Instructions Patient Instructions: Ketoacidosis Ch Discharge Orders/Prescriptions Prescriptions: Continued insulin lispro 100 UNIT/ML insulin pen See Rx Instructions SQ TIDCM Rx Instructions: SLIDING SCALE SQ 3 times daily with meals; +SLIDING SCALE insulin glargine [Lantus Solostar U-100 Insulin] 100 unit/mL (3 mL) insulin pen 30 unit subcut QPM ondansetron 8 mg tablet,disintegrating 8 mg PO Q8H PRN (Reason: nausea and vomiting) Qty: 12 0RF Discontinued insulin glargine [Lantus U-100 Insulin] 100 unit/mL solution 35 unit subcut QHS insulin lispro 100 unit/mL solution 25 unit subcut TIDCM Patient Comments: inject 25 three times a day No Action (DME) insulin syringe-needle U-100 [TRUEplus Insulin] 0.5 mL 31 gauge x 5/16 syringe 1 syringe MISCELLANEOUS 4X/DAY Referrals / Follow Up: Care Physician,No Primary [Primary Care Provider] - Disposition Disposition (needs filled in before D/C Order can be placed): Home, Self Care
--- NOTE | 2025-02-28 09:31 | CASEMGMT ---
KEN KAHN Assessment Pt has an order for DC placed. Per ICU rounds, pt is ready for DC home. Pt was in observation during the last visit. Face to Face with patient for initial transition planning/care coordination assessment. KEN KAHN introduced self and role at [facility], pt voices understanding. Pt is A&Ox4 and is resting comfortably in the chair and is calm. Care providers, pharmacy, and demographics verified. Admitting dx: DKA LACE Strata: 3 PCP: No PCP listed. This KEN KAHN inquired about this and pt states that he has one that is right down the road. Pt reports that he cannot think of the name or the medical group. Pt also declines PCP list when offered. Pt states again that he does have a PCP and plans to f/u after DC. Specialists: Pt states that he is still in the process of getting established with an Floor Installer. Pt states that he is still waiting for a call back from Dr Caldera's office. Pt was encouraged to call again to get established. Pt states understanding and denies needs. Pt states that all he ate was a salad prior to admission but did not check his sugar or take any of his insulin that day. Pt states that he believes he has heart issues and that is what causes his BS levels to spike. Pt states that he would be interested in following up with a waiter and cashier. [facility] information provided. Preferred Pharmacy: [facility] Insurance: en[employer] Prescription Benefit: Yes LNOK: Negro Cosby (Father), Ashwini Novoa (Aunt) Living Arrangements: Pt lives with his father in a single story home ADLs/IADLs: Indep Transportation: Self, father. Denies concerns DME: Pt states that he has a functioning glucometer with a sufficient amount of lancets, test strips, and EtOH swabs. Pt states that he also takes insulin and has enough pen needles. Pt denies any issues regarding the equipment needed to care for his DM. HHC/SNF: Denies hx of Pt?s goal: Home Plan: Home with father with follow up plans in place. Pt states that he feels safe with this plan and denies further questions, concerns, or needs at this time. Luz Mon RN, CM
--- NOTE | 2025-02-28 10:51 | PCM.DC.SUM ---
Providers Date of Admission: 02/27/25 Primary Care Physician: Cecy Primary Care Phys Reason For Visit: DKA Diagnosis Discharge Diagnosis (1) Diabetic ketoacidosis associated with type 1 diabetes mellitus: Status: Acute Code(s): E10.10 - Type 1 diabetes mellitus with ketoacidosis without coma (2) Acute dehydration: Status: Acute Code(s): E86.0 - Dehydration Medications at Discharge Home Medications insulin lispro 100 unit/mL subcutaneous pen See Rx Instructions SQ TIDCM short acting insulin 03/05/21 insulin glargine 100 unit/mL (3 mL) subcutaneous pen (Lantus Solostar U-100 Insulin) 30 unit subcut QPM diabetes 08/18/22 insulin syringe-needle U-100 0.5 mL 31 gauge x /16 (TRUEplus Insulin) 10/19/24 ondansetron 8 mg disintegrating tablet 8 mg PO Q8H PRN nausea and vomiting #12 tabs 12/14/24 Hospital Course Operations None Procedures None Summary of Care Provided Minutes Spent on Discharge: 32 Hospital Course: Per HPI: UNA DURON, is [id number] male history of type 1 diabetes and tobacco use presented to [facility] ED 02/27/2025 with complaints of heart palpitations. In the ED temp 97.4, heart rate 115 with a blood pressure 138/89, respiratory rate 22 pulse ox 100% on room air. CBC with white blood cell count 8.8 and hemoglobin of 12, BMP with sodium of 129, potassium 5.3, chloride 91, bicarb 15.6 with an anion gap of 22, BUN 11 with a creatinine of 1.02 up from baseline of about 0.65. Glucose found to be 865. Patient suspected to be in DKA so he was given IV fluids, started on insulin drip and UA and beta hydroxybutyrate ordered. Hospitalist contacted for admission for DKA. Patient evaluated at bedside, reports that he came in because he began having heart palpitations earlier today but ROS otherwise completely negative. Says he has some chronic pain diffusely but nothing that is new. Said he only ate a salad today and that he did not take his insulin. Endorses using about 25 units of long-acting in the morning with sliding scale, sliding scale throughout the day and 30 of long-acting at bedtime. Per patient he reports compliance Hospital Course: 1. DKA in the setting of type 1 diabetes with FRANKLIN?29-year-old male states he is compliant with his insulin but occasionally gets DKA and he thinks this time it was due to being tachycardic. His gap closed fairly quickly last evening and he was placed on his long-acting subcu insulin as well as a diet. FRANKLIN resolved, and he had an FRANKLIN simply because his creatinine was about double what it normally is despite still being in the normal range. Creatinine on the day of discharge was 0.44, on admission it was 1.02. He requested to be discharged today after breakfast as he does not want to be here any longer and says that he feels fine. He was continued on his home insulin medications and he says that he knows what he is doing. It does not appear that he has a primary care doctor. I discussed with him the possibility for discharge and he expressed understanding of the risks and benefits of going home and wants to go home today. Physical Exam Narrative General: Alert, Oriented x3, Cooperative, No apparent distress HEENT: Atraumatic, PERRLA, EOMI, Normocephalic Oral: Moist Mucosa Neck: Supple, No JVD Lungs: Clear to auscultation, Normal air movement, No rhonchi, No wheeze, No rales Cardiovascular: Regular rate, Regular Rhythm, Normal S1, Normal S2, No murmurs Abdomen: Soft, Non Tender, Non-Distended, No Hepato-splenomegaly Extremities: No edema, Capillary Refill Less than 3 Seconds Skin: No rashes, No breakdown Musculoskeletal: No Tenderness to Palpation of Joints or Extremities Neurological: No focal neurological deficits, Motor Exam 5/5 strength throughout, Sensory exam intact to light touch and pain Psych/Mental Status: Normal Affect, Appropriate Weight / BMI Weight Weight: 129 lb 10.109 oz Body Mass Index (BMI) 16.6 ABG / Lab / Microbiology Data 02/28/25 04:25 02/28/25 04:25 Laboratory: Laboratory Results - last 24 hr 02/27/25 13:26: WBC 8.8, RBC 4.94, Hgb 12.0 L, Hct 40.1, MCV 81.2, MCH 24.3 L, MCHC 29.9 L, RDW Std Deviation 51.4 H, RDW Coeff of Alec 17.4 H, Plt Count 268, MPV 11.1, Immature Gran % (Auto) 0.500, Neut % (Auto) 59.1, Lymph % (Auto) 28.6, [place] % (Auto) 7.6, Eos % (Auto) 3.4, Baso % (Auto) 0.8, Absolute Neuts (auto) 5.2, Absolute Lymphs (auto) 2.53, Nucleated RBC % 0, Sodium 129 L, Potassium 5.3 H, Chloride 91 L, Carbon Dioxide 15.6 L, Anion Gap 22 H, BUN 11, Creatinine 1.02, Estim Creat Clear Calc 94.64, Est GFR (MDRD) Non-Af 103, BUN/Creatinine Ratio 11.0, Glucose 865 H*, Calcium 8.4 02/27/25 14:35: Urine Color Straw, Urine Clarity Clear, Urine pH 6.0, Ur Specific [place] 1.010, Urine Protein 15 H, Urine Glucose (UA) 1000 H, Urine Ketones 50 H, Urine Occult Blood 10 H, Urine Nitrite Negative, Urine Bilirubin Negative, Urine Urobilinogen Normal, Ur Leukocyte Esterase Negative, Urine RBC 0-5 SEEN, Urine WBC 0-5 SEEN, Ur Squamous Epith Cells 0-5 SEEN, Urine Bacteria 0 SEEN, Urine Mucus 0 SEEN 02/27/25 15:37: POC Glucose 362 H 02/27/25 16:17: POC Glucose 269 H 02/27/25 16:45: Sodium 139, Potassium 3.4, Chloride 105, Carbon Dioxide 20.6 L, Anion Gap 13, Phosphorus 2.6 L, Magnesium 2.1, b-Hydroxybutyric mmol/L 0.1 02/27/25 17:32: POC Glucose 154 H 02/27/25 18:33: POC Glucose 138 H 02/27/25 19:45: POC Glucose 116 H 02/27/25 20:35: POC Glucose 98 02/27/25 20:40: Sodium 141, Potassium 3.2 L, Chloride 106, Carbon Dioxide 25.0, Anion Gap 9, BUN 6, Creatinine 0.44 L, Estim Creat Clear Calc 207.10, Est GFR (MDRD) Non-Af 150, BUN/Creatinine Ratio 13.5, Glucose 107 H, Calcium 8.0, Phosphorus Cancelled 02/27/25 20:40: Phosphorus 3.2, Magnesium 1.8 02/27/25 22:07: POC Glucose 93 02/27/25 22:50: POC Glucose 171 H 02/28/25 04:25: WBC 14.3 H, RBC 4.85, Hgb 11.9 L, Hct 37.2 L, MCV 76.7 L D, MCH 24.5 L, MCHC 32.0 D, RDW Std Deviation 47.5 H, RDW Coeff of Alec 17.2 H, Plt Count 293, MPV 10.8, Immature Gran % (Auto) 0.400, Neut % (Auto) 49.3, Lymph % (Auto) 37.5, [place] % (Auto) 7.5, Eos % (Auto) 4.8, Baso % (Auto) 0.5, Absolute Neuts (auto) 7.1, Absolute Lymphs (auto) 5.35 H, Nucleated RBC % 0, Differential Comment SCANNED, Sodium 139, Potassium 3.8, Chloride 105, Carbon Dioxide 21.5, Anion Gap 13, BUN 8, Creatinine 0.44 L, Estim Creat Clear Calc 209.73, Est GFR (MDRD) Non-Af 149, BUN/Creatinine Ratio 17.1, Glucose 131 H, Calcium 8.2, Magnesium 1.9 02/28/25 08:22: POC Glucose 136 H ABG: ABG 02/27/25 20:40 Specimen Type JAIDEN Sample Site Not entered VBG pH 7.48 H VBG pO2 53 H VBG HCO3 30 H VBG Total CO2 31 VBG O2 Sat (Calc) 89 H VBG Base Excess 7 H POC Mix VBG pCO2 Pt Tmp 40.2 L O2 Delivery Device Not entered D/C Instructions Call your doctor if you observe: Fever of 101 or Higher, Shortness of breath, Dizziness, Fainting spells, Swelling in the ankles, Chest pain and Increased palpitations (irregular heartbeat) DC O2, CPAP, BIPAP Needs Home O2 Discharge instructions: No Meaningful Use Info Meaningful Use Meaningful Use Diagnoses (Choose all that apply): None applicable Discharge Plan Admission Admit Date/Time: 02/27/25 14:52 Attending Provider: Berny Nelson Primary Care Provider: Care Physician,No Primary Consulting Providers: Marcelina Erickson Instructions Patient Instructions: Ketoacidosis Ch Discharge Orders/Prescriptions Prescriptions: Continued insulin lispro 100 UNIT/ML insulin pen See Rx Instructions SQ TIDCM Rx Instructions: SLIDING SCALE SQ 3 times daily with meals; +SLIDING SCALE insulin glargine [Lantus Solostar U-100 Insulin] 100 unit/mL (3 mL) insulin pen 30 unit subcut QPM ondansetron 8 mg tablet,disintegrating 8 mg PO Q8H PRN (Reason: nausea and vomiting) Qty: 12 0RF Discontinued insulin glargine [Lantus U-100 Insulin] 100 unit/mL solution 35 unit subcut QHS insulin lispro 100 unit/mL solution 25 unit subcut TIDCM Patient Comments: inject 25 three times a day No Action (DME) insulin syringe-needle U-100 [TRUEplus Insulin] 0.5 mL 31 gauge x 5/16 syringe 1 syringe MISCELLANEOUS 4X/DAY Referrals / Follow Up: Care Physician,No Primary [Primary Care Provider] - Disposition Disposition (needs filled in before D/C Order can be placed): Home, Self Care Charges/Coding Visit Charges Inpatient E&M: 24116 Disch Hosp >30min
== END 2025-02-28 09:47 | disposition home or self-care (01) | DRG 420 ==
LOC: ED 14:39 → ICU 14:58
PROVIDERS: Admitting Provider Internal Medicine; Emergency Provider Emergency Medicine; Visit Provider Family Medicine
DX: E10.10 Type 1 diabetes mellitus with ketoacidosis without coma (principal); Z79.4 Long term (current) use of insulin; N17.9 Acute kidney failure, unspecified; E87.5 Hyperkalemia; F17.220 Nicotine dependence, chewing tobacco, uncomplicated; F17.290 Nicotine dependence, other tobacco product, uncomplicated; F17.210 Nicotine dependence, cigarettes, uncomplicated; E86.0 Dehydration
CPT/HCPCS: 80048; 80051; 81001; 82010; 82803; 82962; 83735; 84100; 85025; 93005; 96365; 96366; 99221; 99285; A4216; G0378

== ENCOUNTER 2025-04-21 13:28 | Emergency (ER) | payer MEDICAID, SELFPAY ==
[2025-04-21 13:29] VITALS: BP 120/70; PULSE 80; RESP 16; TEMP 36.8; O2SAT 98; BMI 19.2
--- NOTE | 2025-04-21 13:50 | RAD_ITS ---
PROCEDURE: SHOULDER MIN 2 VIEWS; CLAVICLE N/A REASON FOR EXAM: INJURY; INJURY LEFT Clavicle and shoulder pain. TECHNIQUE: Procedure Code: RADSH; RADCL Modality: DX Procedure: SHOULDER MIN 2 VIEWS; CLAVICLE Laterality: Left COMPARISON: None FINDINGS: Four views of the left shoulder. Two views of the left clavicle. Bones: Negative for fractures. Scapula negative. Proximal humerus negative. Clavicle negative. Joints: Slight degenerative changes in the AC joint. Intact. No joint effusion. Soft tissues: Adjacent structures negative. Other: Remainder of the exam negative. RAD/Shoulder min 2 Views IMPRESSION: Negative for acute abnormality of the left shoulder or left clavicle. Reading Location: [id number]
--- NOTE | 2025-04-21 13:50 | RAD_ITS ---
PROCEDURE: SHOULDER MIN 2 VIEWS; CLAVICLE N/A REASON FOR EXAM: INJURY; INJURY LEFT Clavicle and shoulder pain. TECHNIQUE: Procedure Code: RADSH; RADCL Modality: DX Procedure: SHOULDER MIN 2 VIEWS; CLAVICLE Laterality: Left COMPARISON: None FINDINGS: Four views of the left shoulder. Two views of the left clavicle. Bones: Negative for fractures. Scapula negative. Proximal humerus negative. Clavicle negative. Joints: Slight degenerative changes in the AC joint. Intact. No joint effusion. Soft tissues: Adjacent structures negative. Other: Remainder of the exam negative. RAD/Clavicle IMPRESSION: Negative for acute abnormality of the left shoulder or left clavicle. Reading Location: [id number]
--- NOTE | 2025-04-21 14:02 | EX.ED.UPPERE ---
HPI History of Present Illness Chief Complaint: Upper Extremity Injury Detail of Chief Complaint: Left shoulder pain Informant: patient Occured/Mechanism Comment: There is no history of direct trauma. Onset/Context/Timing Onset: Weeks Context: Sudden Onset Timing: Continuous and Waxes and wanes Current Severity: Mild Maximum Severity: Moderate Worsened by: Certain movements Relieved by: Nothing Associated Symptoms Associated Symptoms: Negative for Parasthesia, Weakness or Loss of Funtion Narrative Narrative: Patient is a 30-year-old [id number] male with type 1 diabetes. He has no history of kidney disease. He states his prescription for NSAID has no refills. He took one of his dad's ibuprofen tablets. He denies fever, chills night sweats. He denies paresthesia, anesthesia or motor weakness. He denies cardiac or respiratory symptoms. There is no history of direct trauma. He has no history of peptic ulcer disease, or known kidney disease. He does have diabetes. Prior similar symptoms: No Recent Illness/Hospitalization: No PFSH PFSH Medical History Anxiety Depression Smoker Asthma Hypertension Chronic anemia Learning difficulty due to cognitive limitations Noncompliance with medication regimen H/O fracture of skull Anxiety and depression Type I diabetes mellitus, uncontrolled Tobacco use Home Medications ?Medication ?Instructions ?Recorded ?Last Taken ?Type insulin lispro 100 unit/mL See Rx Instructions SQ TIDCM short 03/05/21 03/04/21 History subcutaneous pen acting insulin insulin glargine 100 unit/mL (3 30 unit subcut QPM diabetes 08/18/22 Unknown History mL) subcutaneous pen (Lantus Solostar U-100 Insulin) insulin syringe-needle U-100 0.5 10/19/24 Unknown History mL 31 gauge x 5/16 (TRUEplus Insulin) ondansetron 8 mg disintegrating 8 mg PO Q8H PRN nausea and 12/14/24 Unknown Rx tablet vomiting #12 tabs hydrocodone-acetaminophen 5-325mg 1 tab PO Q6H PRN PRN Pain 2 days 04/21/25 Unknown Rx 5mg-325mg #6 TABLETS naproxen 500 mg tablet 500 mg PO BID #14 tabs 04/21/25 Unknown Rx Allergy/AdvReac Type Severity Reaction Status Date / Time No Known Allergies Allergy Verified 04/21/25 13:31 Family History Father Diabetes Mother , Age 26. Heart disease CAD (coronary artery disease) Hypertension Heart failure Surgical History H/O skin graft Social History household members: family Smoking Status: Current some day smoker tobacco type: cigarettes, e-cigarettes and smokeless tobacco Smokeless tobacco user: chewing tobacco second hand exposure: Yes alcohol intake: never substance use type: does not use ROS ROS ED Constitutional Constitutional ED: Denies chills, fever(s), subjective or sweats Cardiovascular Cardiovascular: Denies chest pain or palpitations Respiratory/Chest Respiratory/Chest: Denies cough, dyspnea or dyspnea on exertion Gastrointestinal Gastrointestinal: Denies melena Musculoskeletal Musculoskeletal: Reports other Details: Left shoulder pain/left clavicle pain. ; Denies back pain, myalgias or neck pain Integumentary Denies rash Neurologic Neurologic: Denies paresthesias or weakness Hematologic/Lymphatic Hematologic/Lymphatic: Denies easy bleeding or easy bruising EXAM Physical Exam Const Vital Signs: 04/21/25 13:29 Temperature 98.3 F Temperature Source Oral Pulse Rate 80 Respiratory Rate 16 Blood Pressure 120/70 Blood Pressure Mean 86 Pulse Ox 98 Oxygen Delivery Method Room Air Positive well nourished, well developed and unkempt General Appearance ED: unkempt, well developed and NAD HEENT Reports moist mucous membranes normocephalic and atraumatic Eyes PERRL and EOMs intact bilaterally Resp normal respiratory effort Cardio regular rate and regular rhythm Extremity normal to inspection; Negative for full ROM Extremity Narrative: Axillary, median, radial and ulnar function intact. There is pain palpation over the AC joint. This is minimal. There is also pain ovation of the bicipital groove. There is increased pain with abduction past 90 degrees. There is no pain palpation over the lateral medial epicondyle, olecranon process or radial head. Radial pulses palpable. There is minimal discomfort posterior left shoulder. There are no dermatologic lesions noted. Neuro oriented x3, CN's II-XII intact bilaterally, moves all extremities, no focal motor deficits and no sensory deficits noted Sensorium / Orientation: alert Motor Exam: strength 5/5 throughout Psych mental status grossly normal Appearance: unkempt Skin General Skin Exam: Negative for petechiae Lesions: no lesions Rashes: no rashes MDM MDM MDM Narrative Medical decision making narrative: Nurse protocol orders were entered. A clavicle and shoulder x-ray was obtained. Differential diagnosis is impingement syndrome, bicipital tendinitis, bursitis, osteoarthritis doubt crystal induced or pyogenic arthritis. Radiography Chest X-Ray - ED: 2 View (2 view x-ray of the left clavicle reveals no abnormality by my independent read at 1406.) and Read by ED Physician (4 view x-ray of the shoulder reveals no fracture, subluxation dislocation. There is no arthritic changes in my opinion. The x-ray appears normal. There is no calcification of the supraspinatus tendon.) Treatment and Re-Evaluation Narrative: Patient has findings suggestive of impingement syndrome and bicipital tendinitis. Treatment is NSAIDs. He received a dose of [place] and Naprosyn in the department. He was discharged with 24-hour supply of opiate analgesia and anti-inflammatory. He is to follow-up with his doctor. Discharge Plan Triage Chief Complaint: Upper Extremity Injury ED Provider: Arik Boswell Dx/Rx/DC Orders Clinical Impression: Biceps tendinitis of left shoulder, Type 1 diabetes, Bursitis of left shoulder Instructions: Biceps Tendonitis Proximal Prescriptions: New hydrocodone-acetaminophen 5-325 mg tablet 1 tab PO Q6H PRN PRN (Reason: Pain) 2 Days Qty: 6 0RF naproxen 500 mg tablet 500 mg PO BID Qty: 14 0RF No Action insulin lispro 100 UNIT/ML insulin pen See Rx Instructions SQ TIDCM Rx Instructions: SLIDING SCALE SQ 3 times daily with meals; +SLIDING SCALE insulin glargine [Lantus Solostar U-100 Insulin] 100 unit/mL (3 mL) insulin pen 30 unit subcut QPM (DME) insulin syringe-needle U-100 [TRUEplus Insulin] 0.5 mL 31 gauge x 5/16 syringe 1 syringe MISCELLANEOUS 4X/DAY ondansetron 8 mg tablet,disintegrating 8 mg PO Q8H PRN (Reason: nausea and vomiting) Qty: 12 0RF Primary Care Provider: Care Physician,No Primary Referrals: Care Physician,No Primary [Primary Care Provider] - Activity Restrictions/Additional Instructions: 1. Recommend contacting your primary care provider. The name of your doctor should be on your insurance card issued to you by [employer]. 2. Avoid pulling anything towards you of any significant weight or limit overhead work. Print Language: Brazilian Disposition Disposition: Home, Self Care
[2025-04-21] MEDS: HYDROcodone Bitartrate/Apap 5/325 Tablet PO (14:26)
[2025-04-21 14:27] VITALS: BP 132/70; PULSE 75; RESP 16; TEMP 36.6; O2SAT 100
--- OUTSIDE RECORDS SUMMARY | 2025-04-21 14:30 | XMS RPT_ITS | CCD ---
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 58.3 % Normal 50.0 - 75.0 % AO Workflow SS Platelet mean volume (Bld) [Entitic vol] 8.7 fL Normal 6.4 - 10.5 fL AO Workflow SS Platelets (Bld) [#/Vol] 306 103/mcL Normal 150 - 450 10^3/mcL AO Workflow SS Potassium [Moles/Vol] 4.2 mmol/L Normal 3.5 - 5.1 mmol/L AO ADM SS RBC (Bld) [#/Vol] 4.82 106/mcL Normal 4.50 - 6.00 10^6/mcL AO Workflow SS Sodium [Moles/Vol] 134 mmol/L Low 136 - 145 mmol/L AO ADM SS Troponin I.cardiac DL <= 0.01 ng/mL [Mass/Vol] 4 ng/L Normal 0 - 76 ng/L AO ADM SS Comment on above: Interpretive Data: H igh Sensitive Troponin I Reference Ranges: Female: 0-51 ng/L Male: 0-76 ng/L Testing performed on [employer] using a homogeneous sandwich chemiluminescent immunoassay based on [employer] technology. Urea nitrogen [Mass/Vol] 13 mg/dL Normal 7 - 18 mg/dL AO ADM SS Urea nitrogen/Creatinine [Mass ratio] 26 ratio Normal 7 - 27 ratio AO ADM SS WBC (Bld) [#/Vol] 11.8 103/mcL High 4.5 - 10.8 10^3/mcL AO Workflow SS MGon 03-04-2025 Magnesium [Mass/Vol] 1.9 mg/dL Normal 1.8-2.4 [facility] Comment on above: Performed By: #### B MP, ROSETTA, GFR, CBC, ANEU, MG, MD SIDDHARTHAW #### [facility] [address], [place] [address] TROPHSon 03-04-2025 High Sensitivity Troponin I 4 ng/L Normal 0-76 [facility] Comment on above: Result Comment: High Sensitive Troponin I Reference Ranges: Female: 0-51 ng/L Male: 0-76 ng/L Testing performed on [employer] using a homogeneous sandwich chemiluminescent immunoassay based on [employer]Notes technology. Performed By: #### B MP, GRETAS, GFR, CBC, ANEU, MG, KIMO CARL #### [facility] [address] [place], [place] [address] Absolute lymphocyte countOrd ered By: Marcelina Erickson on 02-28-2025 Lymphocytes Auto (Unsp spec) [#/Vol] 5.35 10*3/uL High 0.83-4.51 [facility] Absolute neutrophil countOrd ered By: Marcelina Erickson on 02-28-2025 Neutrophils (Bld) [#/Vol] 7.1 10*3/uL 2.0-7.7 [facility] Anion gap in Serum or Plasma Ordered By: Marcelina Erickson on 02-28-2025 Anion gap [Moles/Vol] 13 mmol/L - [facility] Automated lymphocyte count a s percentage of total leukocytesOrdered By: Marcelina Erickson on 02-28-2025 Lymphocytes/100 WBC Auto (Unsp spec) 37.5 % - [facility] BUN/creatinine ratioOrdered By: Marcelina Erickson on 02-28-2025 Urea nitrogen/Creatinine [Mass ratio] 17.1 mg/mg - [facility] Basic Metabolic Profile (BMP )on 02-28-2025 BUN Normal - [facility] Comment on above: Result Comment: Canc elled via OM: off insulin gtt Performed By: #### L 400.0001 #### [facility] [address] [place], [place], [address] BUN/CRE Normal - [facility] Comment on above: Result Comment: Canc elled via OM: off insulin gtt Performed By: #### L 400.0001 #### [facility] [address] [place], [address] Calcium Normal 7.6-11.0 [facility] Comment on above: Result Comment: Canc elled via OM: off insulin gtt Performed By: #### L 400.0001 #### [facility] [address] [place], [address] CL Normal 98-108 [facility] Comment on above: Result Comment: Canc elled via OM: off insulin gtt Performed By: #### L 400.0001 #### [facility] [address] [place], [address] CO2 Normal 21.0-32.0 [facility] Comment on above: Result Comment: Canc elled via OM: off insulin gtt Performed By: #### L 400.0001 #### [facility] [address] [place], [address] CREAT,SERUM Normal 0.70-1.20 [facility] Comment on above: Result Comment: Canc elled via OM: off insulin gtt Performed By: #### L 400.0001 #### [facility] [address] [place], [address] eGFR Normal >60 [facility] Comment on above: Result Comment: Canc elled via OM: off insulin gtt Performed By: #### L 400.0001 #### [facility] [address] [place], [address] GAP Normal 5-15 [facility] Comment on above: Result Comment: Canc elled via OM: off insulin gtt Performed By: #### L 400.0001 #### [facility] [address] [place], [address] GLU Normal 70-99 [facility] Comment on above: Result Comment: Canc elled via OM: off insulin gtt Performed By: #### L 400.0001 #### [facility] [address] [place], [address] Potassium Normal 3.3-5.1 [facility] Comment on above: Result Comment: Canc elled via OM: off insulin gtt Performed By: #### L 400.0001 #### [facility] [address] [place], [address] Basic Metabolic Profile (BMP) Normal 133-145 [facility] Comment on above: Result Comment: Canc elled via OM: off insulin gtt Performed By: #### L 400.0001 #### [facility] [address] [place], [address] BUN/CRE 17.1 RATIO Normal 10-20 [facility] Comment on above: Performed By: #### L 501.5200, L500.2500, L100.0100 ####[facility] [address] [place], [address] Calcium [Mass/Vol] 8.2 mg/dL Normal 7.6-11.0 [facility] Comment on above: Performed By: #### L 501.5200, L500.2500, L100.0100 ####[facility] [address] [place], [address] Chloride [Moles/Vol] 105 mmol/L Normal 98-108 [facility] Comment on above: Performed By: #### L 501.5200, L500.2500, L100.0100 ####[facility] [address] [place], [address] CO2 [Moles/Vol] 21.5 mmol/L Normal 21.0-32.0 [facility] Comment on above: Performed By: #### L 501.5200, L500.2500, L100.0100 ####[facility] [address] [place], [address] Creatinine [Mass/Vol] 0.44 mg/dL Low 0.70-1.20 [facility] Comment on above: Performed By: #### L 501.5200, L500.2500, L100.0100 ####[facility] [address] [place], [address] ECRCL 209.73 ml/min Normal 50-250 [facility] Comment on above: Performed By: #### L 501.5200, L500.2500, L100.0100 ####[facility] [address] [place], [address] GAP 13 Normal 5-15 [facility] Comment on above: Performed By: #### L 501.5200, L500.2500, L100.0100 ####[facility] [address] [place], [address] GFR/1.73 sq M.predicted among non-blacks MDRD (S/P/Bld) [Vol rate/Area] 149 mL/min/{1.73_m2} Normal >60 [facility] Comment on above: Result Comment: mL/m in/1.73m2 CKD-EPI Creatinine Equation (2020) Performed By: #### L 501.5200, L500.2500, L100.0100 ####[facility] [address] [place], [address] Glucose [Mass/Vol] 131 mg/dL High 70-99 [facility] Comment on above: Performed By: #### L 501.5200, L500.2500, L100.0100 ####[facility] [address] [place], [address] Potassium [Moles/Vol] 3.8 mmol/L Normal 3.3-5.1 [facility] Comment on above: Performed By: #### L 501.5200, L500.2500, L100.0100 ####[facility] [address] [place], [address] Sodium [Moles/Vol] 139 mmol/L Normal 133-145 [facility] Comment on above: Performed By: #### L 501.5200, L500.2500, L100.0100 ####[facility] [address] [place], [address] Urea nitrogen [Mass/Vol] 8 mg/dL Normal 4-19 [facility] Comment on above: Performed By: #### L 501.5200, L500.2500, L100.0100 ####[facility] [address] [place], [address] Basophil percentageOrdered B y: Marcelina Erickson on 02-28-2025 Basophils/100 WBC (Bld) 0.5 % 0-1 [facility] Bedside Glucoseon 02-28-2025 FINGERSTICK GLU 136 mg/dL High 74-106 [facility] Comment on above: Result Comment: TEJAL MATTA OF PATIENT CARE PER NURSING PROTOCOL Performed By: #### L 501.6901 #### [facility] [address] [place], [address] Blood manual differential co mment interpretation (narrative result)Ordered By: Marcelina Erickson on 02-28-2025 Manual differential comment Gigi (Bld) [Interp] SCANNED [facility] CBC W/Diff, Automatedon 02-07 SMEAR COMMENT SCANNED Normal [facility] Comment on above: Performed By: #### L 501.5200, L500.2500, L100.0100 ####[facility] [address] [place], [address] Carbon dioxide, total [Moles /volume] in Central venous bloodOrdered By: Marcelina Erickson on 02-28-2025 CO2 [Moles/Vol] 21.5 mmol/L 21.0-32.0 [facility] Chloride assayOrdered By: Zain Erickson on 02-28-2025 Chloride [Moles/Vol] 105 mmol/L 98-108 [facility] Discharge Instructionon 02-07 Discharge Instruction [facility] Medical Records Department [address] [place] [address] Instructions for Home/Discharge Instructions 02/28/25 0853 MR#: [id number] Acct: [id number] Name: UNA COSBY Rep #: [id number] : 1995 29 From: Berny Nelson MD PCP: Care Physician,No Primary Status:ADM IN Discharge Instructions DC O2, CPAP, BIPAP needs Home O2 Discharge instructions: No Dressing / Incision Discharge Activity: Return to Normal Activity Dressing / Incision Call your doctor if you observe: Fever of 101 or Higher, Shortness of breath, Dizziness, Fainting spells, Swelling in the ankles, Chest pain and Increased palpitations (irregular heartbeat) Follow Up Care Test Results: Test results from this visit will be discussed in further detail at your follow-up appointment, if applicable. Discharge Plan Admission Admit Date/Time: 02/27/25 14:52 Attending Provider: Berny Nelson Primary Care Provider: Josep Hall,No Primary Consulting Providers: Marcelina Erickson Instructions Patient Instructions: Ketoacidosis Ch Discharge Orders/Prescriptions Prescriptions: Continued insulin lispro 100 UNIT/ML insulin pen See Rx Instructions SQ TIDCM Rx Instructions: SLIDING SCALE SQ 3 times daily with meals; +SLIDING SCALE insulin glargine [Lantus Solostar U-100 Insulin] 100 unit/mL (3 mL) insulin pen 30 unit subcut QPM ondansetron 8 mg tablet,disintegrating 8 mg PO Q8H PRN (Reason: nausea and vomiting) Qty: 12 0RF Discontinued insulin glargine [Lantus U-100 Insulin] 100 unit/mL solution 35 unit subcut QHS insulin lispro 100 unit/mL solution 25 unit subcut TIDCM Patient Comments: inject 25 three times a day No Action (DME) insulin syringe-needle U-100 [TRUEplus Insulin] 0.5 mL 31 gauge x 5/16 syringe 1 syringe MISCELLANEOUS 4X/DAY Referrals / Follow Up: Care Physician,No Primary [Primary Care Provider] - Disposition Disposition (needs filled in before D/C Order can be placed): Home, Self Care 02/28/25 0856 Berny Nelson MD CC: Dr. Marcelina Erickson MD; No Primary Care Physician Signed Normal [facility] Eosinophil percentageOrdered By: Marcelina Erickson on 02-28-2025 Eosinophils/100 WBC (Bld) 4.8 % 0-5 [facility] Erythrocyte distribution wid th ratioOrdered By: Marcelina Erickson on 02-28-2025 Erythrocyte distribution width (RBC) [Ratio] 17.2 % High 11.6-14.6 [facility] Erythrocyte distribution wid th standard deviationOrdered By: Marcelina Erickson on 02-28-2025 Erythrocyte distribution width (RBC) [Ratio] 47.5 fl High 35.1-43.9 [facility] Glomerular filtration rate ( GFR) estimation/1.73 sq m using serum, plasma, or whole bOrdered By: Marcelina Erickson on 02-28-2025 GFR/1.73 sq M.predicted among non-blacks MDRD (S/P/Bld) [Vol rate/Area] 149 mL/min/{1.73_m2} >60 [facility] Comment on above: mL/min/1.73m2 CKD-EP I Creatinine Equation (2020) [facility] deOrdered By: Berny Nelson on 02-28-2025 Glucose [Mass/Vol] 136 mg/dL High 74-106 [facility] Comment on above: MANAGEMENT OF PATIEN T CARE PER NURSING PROTOCOL Hematocrit Auto (Bld) [Volum e fraction]Ordered By: Marcelina Erickson on 02-28-2025 Hematocrit (Bld) [Volume fraction] 37.2 % Low 40-54 [facility] Hemoglobin measurementOrdere d By: Marcelina Erickson on 02-28-2025 Hemoglobin (Bld) [Mass/Vol] 11.9 g/dL Low 13.0-16.5 [facility] Immature granulocytes/100 WB C Auto (Bld)Ordered By: Marcelina Erickson on 02-28-2025 Immature granulocytes/100 WBC (Bld) 0.400 % 0.0-0.9 [facility] Comment on above: IG% - Immature Granu locytes (promyelocytes, myelocytes and metamyelocytes) > 1% indicates that a LEFT SHIFT is Present. MCV (mean corpuscular volume ) determinationOrdered By: Marcelina Erickson on 02-28-2025 MCV (RBC) [Entitic vol] 76.7 fL Low 80-94 [facility] Comment on above: Delta: 81.2 on 02/27-1326 Magnesiumon 02-28-2025 Magnesium [Mass/Vol] 1.9 mg/dL Normal 1.5-2.2 [facility] Comment on above: Performed By: #### L 501.5200, L500.2500, L100.0100 ####[facility] [address] [place], [address] Magnesium measurement (mass/ volume)Ordered By: Marcelina Erickson on 02-28-2025 Magnesium (Unsp spec) [Mass/Vol] 1.9 mg/dL 1.5-2.2 [facility] Mean corpuscular hemoglobin (MCH) determinationOrdered By: Marcelina Erickson on 02-28-2025 MCH (RBC) [Entitic mass] 24.5 pg Low 27.0-32.0 [facility] Mean corpuscular hemoglobin concentration (MCHC) determinationOrdered By: Marcelina Erickson on 02-28-2025 MCHC (RBC) [Mass/Vol] 32.0 g/dL 32-36 [facility] Comment on above: Delta: 29.9 on 02/27-6 Mean platelet volume determi nationOrdered By: Marcelina Erickson on 02-28-2025 Platelet mean volume (Bld) [Entitic vol] 10.8 fL 6.2-12.0 [facility] Monocyte percentageOrdered B y: Marcelina Erickson on 02-28-2025 Monocytes/100 WBC (Bld) 7.5 % 0-10 [facility] Neutrophil percentageOrdered By: Marcelina Erickson on 02-28-2025 Neutrophils/100 WBC (Bld) 49.3 % 47-70 [facility] Nucleated red blood cell per centageOrdered By: Marcelina Erickson on 02-28-2025 Nucleated RBC/100 WBC (Bld) [Ratio] 0 % 0-5 [facility] Platelet countOrdered By: Zain Erickson on 02-28-2025 Platelets (Bld) [#/Vol] 293 10*3/uL 150-450 [facility] Potassium measurement (mass/ volume)Ordered By: Marcelina Erickson on 02-28-2025 Potassium (Unsp spec) [Mass/Vol] 3.8 mmol/L 3.3-5.1 [facility] RBC Auto (Bld) [#/Vol]Ordere d By: Marcelina Erickson on 02-28-2025 RBC (Bld) [#/Vol] 4.85 10*6/uL 4.6-6.2 [facility] Serum creatinine measurement (mass/volume)Ordered By: Marcelina Erickson on 02-28-2025 Creatinine [Mass/Vol] 0.44 mg/dL Low 0.70-1.20 [facility] Serum glucose measurement (m ass/volume)Ordered By: Marcelina Erickson on 02-28-2025 Glucose [Mass/Vol] 131 mg/dL High 70-99 [facility] Serum or plasma calcium koby urement (mass/volume)Ordered By: Marcelina Erickson on 02-28-2025 Calcium [Mass/Vol] 8.2 mg/dL 7.6-11.0 [facility] Serum or plasma urea nitroge n measurement (mass/volume)Ordered By: Marcelina Erickson on 02-28-2025 Urea nitrogen [Mass/Vol] 8 mg/dL 4-19 [facility] Sodium levelOrdered By: Sukhjinder Erickson on 02-28-2025 Sodium [Moles/Vol] 139 mmol/L 133-145 [facility] White blood cell (WBC) count Ordered By: Marcelina Erickson on 02-28-2025 WBC (Bld) [#/Vol] 14.3 10*3/uL High 4.4-11.0 [facility] 12 Lead EKGon 02-27-[address] [facility] [address] [place] [address] 12 Lead EKG 02/27/25 1431 MR#: [id number] Acct: [id number] Name: UNA COSBY Rep #: [id number] : 1995 29 From: Doyle Morales MD Attending Dr: Dr. Berny Nelson MD Status : DIS IN Ordering Dr: Arik Boswell MD Date: 02/27/25 Location: ICU Sex: M C Admitted: 02/27/25 Test Reason : Blood Pressure : */* mmHG Vent. Rate : 91 BPM Atrial Rate : 91 BPM P-R Int : 156 ms QRS Dur : 82 ms QT Int : 330 ms P-R-T Axes : 73 62 58 degrees QTcB Int : 405 ms Normal sinus rhythm Normal ECG Confirmed by Doyle Morales ([id number]), web editor DOMINIC KEENE ([id number]) on 02/28/2025 1:48:34 PM Referred By: Confirmed By: Doyle Morales 02/28/25 1348 Date Doyle Morales MD CC: Dr. Berny Nelson MD; Dr. Arik Boswell MD; No Primary Care Physician Signed Normal [facility] Absolute lymphocyte countOrd ered By: Arik Boswell on 02-27-2025 Lymphocytes Auto (Unsp spec) [#/Vol] 2.53 10*3/uL 0.83-4.51 [facility] Absolute neutrophil countOrd ered By: Arikerica Boswell on 02-27-2025 Neutrophils (Bld) [#/Vol] 5.2 10*3/uL 2.0-7.7 [facility] Anion gap in Serum or Plasma Ordered By: Arikerica Boswell on 02-27-2025 Anion gap [Moles/Vol] 22 mmol/L High 5-15 [facility] Automated lymphocyte count a s percentage of total leukocytesOrdered By: Arikerica Boswell on 02-27-2025 Lymphocytes/100 WBC Auto (Unsp spec) 28.6 % 19-41 [facility] BUN/creatinine ratioOrdered By: Arikerica Boswell on 02-27-2025 Urea nitrogen/Creatinine [Mass ratio] 11.0 mg/mg 10- [facility] Basic Metabolic Profile (BMP )on 02-27-2025 BUN/CRE 13.5 RATIO Normal - [facility] Comment on above: Performed By: #### L 500.2500 #### [facility] [address] [place], [address] Calcium [Mass/Vol] 8.0 mg/dL Normal 7.6-11.0 [facility] Comment on above: Performed By: #### L 500.2500 #### [facility] [address] [place], [address] Chloride [Moles/Vol] 106 mmol/L Normal 98-108 [facility] Comment on above: Performed By: #### L 500.2500 #### [facility] [address] [place], [address] CO2 [Moles/Vol] 25.0 mmol/L Normal 21.0-32.0 [facility] Comment on above: Performed By: #### L 500.2500 #### [facility] [address] [place], [address] Creatinine [Mass/Vol] 0.44 mg/dL Low 0.70-1.20 [facility] Comment on above: Performed By: #### L 500.2500 #### [facility] [address] [place], [address] ECRCL 207.10 ml/min Normal 50-250 [facility] Comment on above: Performed By: #### L 500.2500 #### [facility] [address] [place], [address] GAP 9 Normal 5-15 [facility] Comment on above: Performed By: #### L 500.2500 #### [facility] [address] [place], [address] GFR/1.73 sq M.predicted among non-blacks MDRD (S/P/Bld) [Vol rate/Area] 150 mL/min/{1.73_m2} Normal >60 [facility] Comment on above: Result Comment: mL/m in/1.73m2 CKD-EPI Creatinine Equation (2020) Performed By: #### L 500.2500 #### [facility] [address] [place], [address] Glucose [Mass/Vol] 107 mg/dL High 70-99 [facility] Comment on above: Performed By: #### L 500.2500 #### [facility] [address] [place], [address] Potassium [Moles/Vol] 3.2 mmol/L Low 3.3-5.1 [facility] Comment on above: Performed By: #### L 500.2500 #### [facility] [address] [place], [address] Sodium [Moles/Vol] 141 mmol/L Normal 133-145 [facility] Comment on above: Performed By: #### L 500.2500 #### [facility] [address] [place], [address] Urea nitrogen [Mass/Vol] 6 mg/dL Normal 4-19 [facility] Comment on above: Performed By: #### L 500.2500 #### [facility] [address] [place], [address] BUN Normal 4-19 [facility] Comment on above: Result Comment: DUPL ICATE PER ED Performed By: #### L 501.080 #### [facility] [address] [place], [address] BUN/CRE Normal 10-20 [facility] Comment on above: Result Comment: DUPL ICATE PER ED Performed By: #### L 501.080 #### [facility] [address] [place], [address] Calcium Normal 7.6-11.0 [facility] Comment on above: Result Comment: DUPL ICATE PER ED Performed By: #### L 501.080 #### [facility] [address] [place], [address] CREAT,SERUM Normal 0.70-1.20 [facility] Comment on above: Result Comment: DUPL ICATE PER ED Performed By: #### L 501.080 #### [facility] [address] [place], [address] eGFR Normal >60 [facility] Comment on above: Result Comment: DUPL ICATE PER ED Performed By: #### L 501.080 #### [facility] [address] [place], [address] GLU Normal 70-99 [facility] Comment on above: Result Comment: DUPL ICATE PER ED Performed By: #### L 501.080 #### [facility] [address] [place], [address] Glucose [Mass/Vol] 865 mg/dL Invalid Interpretation Code 70-99 [facility] Comment on above: Result Comment: Crit ical Result(s) Called at: 02/27/2025-14:22 by: Koko Oh to Dr. Boswell.??Results read back by same. Performed By: #### L 100.0100, L500.2500 ####[facility] [id number] [place], [address] Basophil percentageOrdered B y: Arik Boswell on 02-27-2025 Basophils/100 WBC (Bld) 0.8 % 0-1 [facility] Bedside Glucoseon 02-27-2025 FINGERSTICK GLU 171 mg/dL High 74-106 [facility] Comment on above: Result Comment: TEJAL GEMENT OF PATIENT CARE PER NURSING PROTOCOL Performed By: #### L 501.080 #### [facility] [address] [place], [address] FINGERSTICK GLU 93 mg/dL Normal 74-106 [facility] Comment on above: Result Comment: TEJAL GEMENT OF PATIENT CARE PER NURSING PROTOCOL Performed By: #### L 501.080 #### [facility] [address] [place], [address] FINGERSTICK GLU 98 mg/dL Normal 74-106 [facility] Comment on above: Result Comment: TEJAL GEMENT OF PATIENT CARE PER NURSING PROTOCOL Performed By: #### L 400.0001 #### [facility] [address] [place], [address] FINGERSTICK GLU 116 mg/dL High 74-106 [facility] Comment on above: Result Comment: TEJAL GEMENT OF PATIENT CARE PER NURSING PROTOCOL Performed By: #### L 400.0001 #### [facility] [address] [place], [address] FINGERSTICK GLU 154 mg/dL High 74-106 [facility] Comment on above: Result Comment: TEJAL GEMENT OF PATIENT CARE PER NURSING PROTOCOL Performed By: #### L 501.080 #### [facility] [address] [place], [address] FINGERSTICK GLU 138 mg/dL High 74-106 [facility] Comment on above: Result Comment: TEJAL GEMENT OF PATIENT CARE PER NURSING PROTOCOL Performed By: #### L 400.0001 #### [facility] [address] [place], [address] FINGERSTICK GLU 362 mg/dL High -106 [facility] Comment on above: Result Comment: TEJAL GEMENT OF PATIENT CARE PER NURSING PROTOCOL Performed By: #### L 501.080 ####[facility] [address] [place], [address] FINGERSTICK GLU 269 mg/dL High -106 [facility] Comment on above: Result Comment: TEJAL GEMENT OF PATIENT CARE PER NURSING PROTOCOL Performed By: #### L 400.0001 #### [facility] [address] [place], [address] Beta-Hydroxbytyrateon 2024 BETA-HYDROXYBUT 0.1 mmol/L Normal 0.0-0.3 [facility] Comment on above: Performed By: #### L 501.080 #### [facility] [address] [place], [address] Beta-hydroxybutyrateOrdered By: Marcelina Erickson on 02-27-2025 Beta hydroxybutyrate [Mass/Vol] 0.1 mmol/L 0.0-0.3 [facility] Bilirubin Test strip Ql (U)O rdered By: Arik Boswell on 02-27-2025 Bilirubin Ql (U) Negative Negative [facility] CBC W/Diff, Automatedon 07-2 Absolute Neut Normal 2.0-7.7 [facility] Comment on above: Result Comment: DUPL ICATE PER ED Performed By: #### L 100.0100 #### [facility] [address] [place], [address] HCT Normal 40-54 [facility] Comment on above: Result Comment: DUPL ICATE PER ED Performed By: #### L 100.0100 #### [facility] [address] [place], [address] HGB Normal 13.0-16.5 [facility] Comment on above: Result Comment: DUPL ICATE PER ED Performed By: #### L 100.0100 #### [facility] [address] [place], [address] MCH Normal 27.0-32.0 [facility] Comment on above: Result Comment: DUPL ICATE PER ED Performed By: #### L 100.0100 #### [facility] [address] [place], [address] MCHC Normal 32-36 [facility] Comment on above: Result Comment: DUPL ICATE PER ED Performed By: #### L 100.0100 #### [facility] [address] [place], [address] MCV Normal 80-94 [facility] Comment on above: Result Comment: DUPL ICATE PER ED Performed By: #### L 100.0100 #### [facility] [address] [place], [address] NEUT% Normal 47-70 [facility] Comment on above: Result Comment: DUPL ICATE PER ED Performed By: #### L 100.0100 #### [facility] [address] [place], [address] PLT Normal 150-450 [facility] Comment on above: Result Comment: DUPL ICATE PER ED Performed By: #### L 100.0100 #### [facility] [address] [place], [address] RBC Normal 4.6-6.2 [facility] Comment on above: Result Comment: DUPL ICATE PER ED Performed By: #### L 100.0100 #### [facility] [address] [place], [address] RDW CV Normal 11.6-14.6 [facility] Comment on above: Result Comment: DUPL ICATE PER ED Performed By: #### L 100.0100 #### [facility] [address] [place], [address] RDW SD Normal 35.1-43.9 [facility] Comment on above: Result Comment: DUPL ICATE PER ED Performed By: #### L 100.0100 #### [facility] [address] [place], [address] WBC Normal 4.4-11.0 [facility] Comment on above: Result Comment: DUPL ICATE PER ED Performed By: #### L 100.0100 #### [facility] [address] [place], [address] Absolute Lymph 2.53 X10 3/uL Normal 0.83-4.51 [facility] Comment on above: Performed By: #### L 100.0100, L500.2500 #### [facility] [address] [place], [address] Absolute Neut 5.2 X10 3/uL Normal 2.0-7.7 [facility] Comment on above: Performed By: #### L 100.0100, L500.2500 #### [facility] [address] [place], [address] Basophils/100 WBC (Bld) 0.8 % Normal 0-1 [facility] Comment on above: Performed By: #### L 100.0100, L500.2500 #### [facility] [address] [place], [address] Eosinophils/100 WBC (Bld) 3.4 % Normal 0-5 [facility] Comment on above: Performed By: #### L 100.0100, L500.2500 #### [facility] [address] [place], [address] Erythrocyte distribution width (RBC) [Ratio] 17.4 % High 11.6-14.6 [facility] Comment on above: Performed By: #### L 100.0100, L500.2500 #### [facility] [address] [place], [address] Hematocrit (Bld) [Volume fraction] 40.1 % Normal 40-54 [facility] Comment on above: Performed By: #### L 100.0100, L500.2500 #### [facility] [address] [place], [address] Hemoglobin (Bld) [Mass/Vol] 12.0 g/dL Low 13.0-16.5 [facility] Comment on above: Performed By: #### L 100.0100, L500.2500 #### [facility] [address] [place], [address] IG% 0.500 Normal 0.0-0.9 [facility] Comment on above: Result Comment: IG% - Immature Granulocytes (promyelocytes, myelocytes and metamyelocytes) > 1% indicates that a LEFT SHIFT is Present. Performed By: #### L 100.0100, L500.2500 #### [facility] [address] [place], [address] Lymphocytes/100 WBC (Bld) 28.6 % Normal 19-41 [facility] Comment on above: Performed By: #### L 100.0100, L500.2500 #### [facility] [address] [place], [address] MCH (RBC) [Entitic mass] 24.3 pg Low 27.0-32.0 [facility] Comment on above: Performed By: #### L 100.0100, L500.2500 #### [facility] [address] [place], [address] MCHC (RBC) [Mass/Vol] 29.9 g/dL Low 32-36 [facility] Comment on above: Performed By: #### L 100.0100, L500.2500 #### [facility] [address] [place], [address] MCV (RBC) [Entitic vol] 81.2 fL Normal 80-94 [facility] Comment on above: Performed By: #### L 100.0100, L500.2500 #### [facility] [address] [place], [address] Monocytes/100 WBC (Bld) 7.6 % Normal 0-10 [facility] Comment on above: Performed By: #### L 100.0100, L500.2500 #### [facility] [address] [place], [address] Neutrophils/100 WBC (Bld) 59.1 % Normal 47-70 [facility] Comment on above: Performed By: #### L 100.0100, L500.2500 #### [facility] [address] [place], [address] Nucleated RBC (Bld) [#/Vol] 0 10*3/uL Normal 0-5 [facility] Comment on above: Performed By: #### L 100.0100, L500.2500 #### [facility] [address] [place], [address] Platelet mean volume (Bld) [Entitic vol] 11.1 fL Normal 6.2-12.0 [facility] Comment on above: Performed By: #### L 100.0100, L500.2500 #### [facility] [address] [place], [address] Platelets (Bld) [#/Vol] 268 10*3/uL Normal 150-450 [facility] Comment on above: Performed By: #### L 100.0100, L500.2500 #### [facility] [address] [place], [address] RBC (Bld) [#/Vol] 4.94 10*6/uL Normal 4.6-6.2 [facility] Comment on above: Performed By: #### L 100.0100, L500.2500 #### [facility] [address] [place], [address] RDW SD 51.4 fl High 35.1-43.9 [facility] Comment on above: Performed By: #### L 100.0100, L500.2500 #### [facility] [address] [place], [address] WBC (Bld) [#/Vol] 8.8 10*3/uL Normal 4.4-11.0 [facility] Comment on above: Performed By: #### L 100.0100, L500.2500 #### [facility] [address] [place], [address] CO2 (BldV) [Moles/Vol]Ordere d By: Marcelina Erickson on 02-27-2025 CO2 [Moles/Vol] 31 mmol/L 23-33 [facility] Carbon dioxide, total [Moles /volume] in Central venous bloodOrdered By: Arik Boswell on 02-27-2025 CO2 [Moles/Vol] 15.6 mmol/L Low 21.0-32.0 [facility] Chloride assayOrdered By: Dhiraj Boswell on 02-27-2025 Chloride [Moles/Vol] 91 mmol/L Low 98-108 [facility] Electrolyte Panelon 02-28-20 25 Chloride [Moles/Vol] 105 mmol/L Normal 98-108 [facility] Comment on above: Performed By: #### L 501.5294, L501.5200 ####[facility] [address] [place], [address] CO2 [Moles/Vol] 20.6 mmol/L Low 21.0-32.0 [facility] Comment on above: Performed By: #### L 501.5294, L501.5200 ####[facility] [address] [place], [address] GAP 13 Normal 5-15 [facility] Comment on above: Performed By: #### L 501.5294, L501.5200 ####[facility] [address] [place], [address] Potassium [Moles/Vol] 3.4 mmol/L Normal 3.3-5.1 [facility] Comment on above: Performed By: #### L 501.5294, L501.5200 ####[facility] [address] [place], [address] Sodium [Moles/Vol] 139 mmol/L Normal 133-145 [facility] Comment on above: Performed By: #### L 501.5294, L501.5200 ####[facility] [address] [place], [address] CL Normal 98-108 [facility] Comment on above: Result Comment: MOVE D TO REQ C509 Performed By: #### L 501.080 #### [facility] [address] [place], [address] Result Comment: DUPL ICATE PER ED CO2 Normal 21.0-32.0 [facility] Comment on above: Result Comment: MOVE D TO REQ C509 Performed By: #### L 501.080 #### [facility] [address] [place], [address] Result Comment: DUPL ICATE PER ED GAP Normal 5-15 [facility] Comment on above: Result Comment: MOVE D TO REQ C509 Performed By: #### L 501.080 #### [facility] [address] [place], [address] Result Comment: DUPL ICATE PER ED Potassium Normal 3.3-5.1 [facility] Comment on above: Result Comment: MOVE D TO REQ C509 Performed By: #### L 501.080 #### [facility] [address] [place], [address] Result Comment: DUPL ICATE PER ED Electrolyte Panel Normal 133-145 [facility] Comment on above: Result Comment: MOVE D TO REQ C509 Performed By: #### L 501.080 #### [facility] [address] [place], [address] Result Comment: DUPL ICATE PER ED Emergency Department Summary on 02-27-2025 Emergency Department Summary [facility] Medical Records Department [address] [place] [address] Emergency Department Summary 02/27/25 MR#: [id number] Acct: [id number] Name: UNA COSBY Rep #: [id number] : 1995 29 From: Arik Boswell MD PCP: Care Physician,No Primary Status:ADM IN Location: ICU [id number] HPI History of Present Illness Chief Complaint: Palpitations Detail of Chief Complaint: Supraventricular tachycardia, this is not my first rodeo bud Informant: patient Onset/Context/Timing Onset: Today Context: Sudden Onset Timing: Continuous Quality: Palpitations, fast heart rate, states he needs a new heart valve Location: Cardiovascular Current Severity: Mild Maximum Severity: Moderate Worsened by: Activity and upright position Relieved by: Nothing Associated Symptoms Associated Symptoms: Nausea, thirst, increased urination Narrative Narrative: Patient is a 29-year-old male. He is not a good informant. He presents because of palpitation. He states he has been here before and this is not my first rodeo bud. Patient has not checked his blood sugar presently. 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 He has been admitted numerous times this year for DKA. Question of ketotic odor to his breath. He is tachycardic and tachypneic. Monitor reveals a sinus tachycardia. He denies headache, double vision, ringing his ears decreased hearing. Does have blurred vision, bilaterally. He denies chest discomfort, pressure, tightness or heaviness. He does endorse some mild shortness of breath. He does complain of some vague abdominal discomfort with nausea without vomiting or diarrhea. He denies dysuria or hematuria. He does endorse nocturia and urgency/frequency. Prior similar symptoms: Yes (Per review of old records when patient presents with similar symptoms he horta) Recent Illness/Hospitalization : No PFSH PFSH Medical History Noncompliance with medication regimen Anxiety [...] ED Constitutional Constitutional ED: Denies chills, fever(s), subjective, sweats or weight loss Eyes Eyes: Reports blurry vision bilateral; Denies change in vision or diplopia ENT ENT ED: Denies ear pain, rhinorrhea or sore throat Cardiovascular Cardiovascular: Reports palpitations and racing heartbeat; Denies chest pain, orthopnea or paroxysmal nocturnal dyspnea Respiratory/Chest Respiratory/Chest: Reports dyspnea; Denies cough, dyspnea on exertion, orthopnea or paroxysmal nocturnal dyspnea Gastrointestinal Gastrointestinal: Reports abdominal pain and nausea; Denies constipation, diarrhea, melena or vomiting Genitourinary Genitourinary ED: Denies dysuria, hematuria or urinary frequency Musculoskeletal Musculoskeletal: Reports arthralgias and myalgias Integumentary Reports rash Neurologic Neurologic: Reports weakness; Denies headache(s) or paresthesias Endocrine Endocrinology: Reports polydipsia and polyuria Hematologic/Lymphatic Hematologic/Lymphatic: Reports systems reviewed and no addt'l complaints, except as documented EXAM Physical Exam Const Vital Signs: (more content not included)... Normal [facility] Eosinophil percentageOrdered By: Arik Boswell on 02-27-2025 Eosinophils/100 WBC (Bld) 3.4 % 0-5 [facility] Erythrocyte distribution wid th ratioOrdered By: Arik Boswell on 02-27-2025 Erythrocyte distribution width (RBC) [Ratio] 17.4 % High 11.6-14.6 [facility] Erythrocyte distribution wid th standard deviationOrdered By: Arikerica Boswell on 02-27-2025 Erythrocyte distribution width (RBC) [Ratio] 51.4 fl High 35.1-43.9 [facility] Glomerular filtration rate ( GFR) estimation/1.73 sq m using serum, plasma, or whole bOrdered By: Arik Boswell on 02-27-2025 GFR/1.73 sq M.predicted among non-blacks MDRD (S/P/Bld) [Vol rate/Area] 103 mL/min/{1.73_m2} >60 [facility] Comment on above: mL/min/1.73m2 CKD-EP I Creatinine Equation (2020) H AND P Exam - [facility] 02-27-2025 H&P Exam - Hospitalist [facility] Medical Records Department [address] [place] [address] H P Exam - Hospitalist 02/27/25 1452 MR#: [id number] Acct: [id number] Name: UNA COSBY Rep #: [id number] : 1995 29 From: Marcelina Erickson MD PCP: Care Physician,No Primary Status:ADM IN Location: ICU [id number] HPI - General General Date of Admission: 02/27/25 Date of Service: 02/27/25 Chief Complaint: Heart palpitations HPI Narrative UNA COSBY, is [id number] male history of type 1 diabetes and tobacco use presented to [facility] ED 02/27/2025 with complaints of heart palpitations. In the ED temp 97.4, heart rate 115 with a blood pressure 138/89, respiratory rate 22 pulse ox 100% on room [...] at bedtime. Per patient he reports compliance [facility] Medical History Noncompliance with medication regimen Anxiety [...] glargine 100 unit/mL 35 unit subcut QHS diabetes Unknown History subcutaneous solution (Lantus U-100 Insulin) insulin lispro 100 unit/mL 25 unit subcut TIDCM diabetes 10/07 10/31 Unknown History subcutaneous solution insulin syringe-needle U-100 [...] Mean [Standing (for 1 minute prior to obtaini (more content not included)... Normal [facility] Hematocrit Auto (Bld) [Volum e fraction]Ordered By: Arik Boswell on 02-27-2025 Hematocrit (Bld) [Volume fraction] 40.1 % 40-54 [facility] Hemoglobin measurementOrdere d By: Arik Boswell on 02-27-2025 Hemoglobin (Bld) [Mass/Vol] 12.0 g/dL Low 13.0-16.5 [facility] Immature granulocytes/100 WB C Auto (Bld)Ordered By: Arik Boswell on 02-27-2025 Immature granulocytes/100 WBC (Bld) 0.500 % 0.0-0.9 [facility] Comment on above: IG% - Immature Granu locytes (promyelocytes, myelocytes and metamyelocytes) > 1% indicates that a LEFT SHIFT is Present. Ketones Test strip Ql (U)Ord ered By: Arik Boswell on 02-27-2025 Ketones Ql (U) 50 mg/dl High Negative [facility] MCV (mean corpuscular volume ) determinationOrdered By: Arik Boswell on 02-27-2025 MCV (RBC) [Entitic vol] 81.2 fL 80-94 [facility] Magnesiumon 02-27-2025 Magnesium [Mass/Vol] 1.8 mg/dL Normal 1.5-2.2 [facility] Comment on above: Performed By: #### L 500.2500 #### [facility] [address] [place], [place], [address] Magnesium [Mass/Vol] 2.1 mg/dL Normal 1.5-2.2 [facility] Comment on above: Performed By: #### L 501.5294, L501.5200 ####[facility] [address] [place], [place], [address] Mean corpuscular hemoglobin (MCH) determinationOrdered By: Arik Boswell on 02-27-2025 MCH (RBC) [Entitic mass] 24.3 pg Low 27.0-32.0 [facility] Mean corpuscular hemoglobin concentration (MCHC) determinationOrdered By: Arik Boswell on 02-27-2025 MCHC (RBC) [Mass/Vol] 29.9 g/dL Low 32-36 [facility] Mean platelet volume determi nationOrdered By: Arik Boswell on 02-27-2025 Platelet mean volume (Bld) [Entitic vol] 11.1 fL 6.2-12.0 [facility] Microscopic analysis of urin e for red blood cells (RBC)Ordered By: Arik Boswell on 02-27-2025 Microscopic analysis of urine for red blood cells (RBC) 0-5 SEEN /hpf 0-5 [facility] Monocyte percentageOrdered B y: Arik Boswell on 02-27-2025 Monocytes/100 WBC (Bld) 7.6 % 0-10 [facility] Mucus LM Ql (Urine sed)Order ed By: Arik Boswell on 02-27-2025 Mucus Ql (Urine sed) 0 SEEN /hpf [facility] Neutrophil percentageOrdered By: Arik Boswell on 02-27-2025 Neutrophils/100 WBC (Bld) 59.1 % 47-70 [facility] Nitrite Test strip Ql (U)Ord ered By: Arik Boswell on 02-27-2025 Nitrite Ql (U) Negative Negative [facility] No Panel InformationOrdered By: Marcelina Erickson on 02-27-2025 Blood Gas Sample Site Not entered [facility] Blood Gas Specimen Type JAIDEN [facility] Oxygen Delivery Device Not entered [facility] Nucleated red blood cell per centageOrdered By: Arik Boswell on 02-27-2025 Nucleated RBC/100 WBC (Bld) [Ratio] 0 % 0-5 [facility] Phosphoruson 02-27-2025 Phosphate [Mass/Vol] 3.2 mg/dL Normal 2.7-4.5 [facility] Comment on above: Performed By: #### L 501.080 #### [facility] [address] [place], [address] Phosphate [Mass/Vol] 2.6 mg/dL Low 2.7-4.5 [facility] Comment on above: Performed By: #### L 501.080 #### [facility] [address] [place], [address] Platelet countOrdered By: Dhiraj Boswell on 02-27-2025 Platelets (Bld) [#/Vol] 268 10*3/uL 150-450 [facility] Potassium measurement (mass/ volume)Ordered By: Arik Boswell on 02-27-2025 Potassium (Unsp spec) [Mass/Vol] 5.3 mmol/L High 3.3-5.1 [facility] Protein Test strip Ql (U)Ord ered By: Arik Boswell on 02-27-2025 Protein Ql (U) 15 mg/dl High Negative [facility] RBC Auto (Bld) [#/Vol]Ordere d By: Arik Boswell on 02-27-2025 RBC (Bld) [#/Vol] 4.94 10*6/uL 4.6-6.2 [facility] Serum creatinine measurement (mass/volume)Ordered By: Arik Boswell on 02-27-2025 Creatinine [Mass/Vol] 1.02 mg/dL 0.70-1.20 [facility] Serum glucose measurement (m ass/volume)Ordered By: Arik Boswell on 02-27-2025 Glucose [Mass/Vol] 865 mg/dL High 70-99 [facility] Comment on above: Critical Result(s) C alled at: 02/27/2025-14:22 by: Koko Oh to Dr. Boswell. Results read back by same. Serum or plasma calcium koby urement (mass/volume)Ordered By: Arik Boswell on 02-27-2025 Calcium [Mass/Vol] 8.4 mg/dL 7.6-11.0 [facility] Serum or plasma urea nitroge n measurement (mass/volume)Ordered By: Arik Boswell on 02-27-2025 Urea nitrogen [Mass/Vol] 11 mg/dL 4-19 [facility] Sodium levelOrdered By: Arikerica Boswell on 02-27-2025 Sodium [Moles/Vol] 129 mmol/L Low 133-145 [facility] Squamous epithelial cells de tection in urine sediment by light microscopyOrdered By: Arik Boswell on 02-27-2025 Epithelial cells.squamous LM Ql (Urine sed) 0-5 SEEN /hpf 0-5 [facility] Urinalysis, Completeon 02-27 EPI,SQUAMOUS 0-5 SEEN Normal 0-5 [facility] Comment on above: Order Comment: CLEAN CATCH Performed By: #### L 400.0001 #### [facility] [address] [place], [place], [id number] (325) RBC 0-5 SEEN Normal 0-5 [facility] Comment on above: Order Comment: CLEAN CATCH Performed By: #### L 400.0001 #### [facility] [address] [place], [address] WBC 0-5 SEEN Normal 0-5 [facility] Comment on above: Order Comment: CLEAN CATCH Performed By: #### L 400.0001 #### [facility] [address] [place], [address] BACTERIA 0 SEEN Normal None Seen [facility] Comment on above: Order Comment: CLEAN CATCH Performed By: #### L 400.0001 #### [facility] [address] [place], [place], [id number] Mucus Ql (Urine sed) 0 SEEN Normal [facility] Comment on above: Order Comment: CLEAN CATCH Performed By: #### L 400.0001 #### [facility] [address] [place], [place], [id number] Urine clarityOrdered By: Arik Boswell on 02-27-2025 Clarity (U) Clear Clear [facility] Urine color determinationOrd ered By: Arik Boswell on 02-27-2025 Color (U) Straw Yellow [facility] Urine glucose detectionOrder ed By: Arik Boswell on 02-27-2025 Glucose Ql (U) 1000 mg/dl High Normal [facility] Urine leukocyte esterase det ection by dipstickOrdered By: Arik Boswell on 02-27-2025 Leukocyte esterase Test strip Ql (U) Negative Negative [facility] Urine pHOrdered By: Arik maldonado on 02-27-2025 pH (U) 6.0 [pH] 5.0 - 8.0 [facility] Urine sediment bacteria coun t by microscopy (number/high power field)Ordered By: Arikerica Boswell on 02-27-2025 Bacteria LM.HPF (Urine sed) [#/Area] 0 /[HPF] None Seen [facility] Urine specific gravity measu rementOrdered By: Arikerica Boswell on 02-27-2025 Specific gravity (U) [Rel density] 1.010 1.002-1.03 0 [facility] Urine urobilinogen measureme ntOrdered By: Arikerica Boswell on 02-27-2025 Urobilinogen Ql (U) Normal mg/dl Normal [facility] Venous Blood Gason Blood Gas Type JAIDEN Normal [facility] Comment on above: Performed By: #### L 501.080 #### [facility] [address] [place], [place], [address] CO2 [Moles/Vol] 31 mmol/L Normal 23-33 [facility] Comment on above: Performed By: #### L 501.080 #### [facility] [address] [place], [address] HCO3 (Bld) [Moles/Vol] 30 mmol/L High 22-26 [facility] Comment on above: Performed By: #### L 501.080 #### [facility] [address] [place], [address] O2 Delivery Dev Not entered Normal [facility] Comment on above: Performed By: #### L 501.080 #### [facility] [address] [place], [address] SITE Not entered Normal [facility] Comment on above: Performed By: #### L 501.080 #### [facility] [address] [place], [address] VBG BE 7 mmol/L High -1.0-3.5 [facility] Comment on above: Performed By: #### L 501.080 #### [facility] [address] [place], [address] VBG pCO2 40.2 mmHg Low 41-51 [facility] Comment on above: Performed By: #### L 501.080 #### [facility] [address] [place], [address] VBG pH 7.48 High 7.32-7.42 [facility] Comment on above: Performed By: #### L 501.080 #### [facility] [address] [place], [address] VBG PO2 53 mmHg High 25-40 [facility] Comment on above: Performed By: #### L 501.080 #### [facility] [address] [place], [address] VBG SO2 89 High 50-70 [facility] Comment on above: Performed By: #### L 501.080 #### [facility] [address] [place], [place], [id number] Venous blood base excess yaya surementOrdered By: Marcelina Ericksno on 02-27-2025 Base excess Calc (BldV) [Moles/Vol] 7 mmol/L High -1.0-3.5 [facility] Venous blood bicarbonate yaya surementOrdered By: Marcelina Erickson on 02-27-2025 HCO3 (Bld) [Moles/Vol] 30 mmol/L High 22-26 [facility] Venous blood oxygen saturati on measurementOrdered By: Marcelina Erickson on 02-27-2025 Oxygen saturation in Blood 89 % High 50-70 [facility] Venous blood pH measurementO rdered By: Marcelina Erickson on 02-27-2025 pH (BldV) 7.48 [pH] High 7.32-7.42 [facility] Venous blood partial pressur e of carbon dioxide measurementOrdered By: Marcelina Erickson on 02-27-2025 CO2 (BldV) [Partial pressure] 40.2 mm[Hg] Low 41-51 [facility] Venous blood partial pressur e of oxygen measurementOrdered By: Marcelina Erickson on 02-27-2025 Oxygen (BldV) [Partial pressure] 53 mm[Hg] High 25-40 [facility] White blood cell (WBC) count Ordered By: Arik Boswell on 02-27-2025 WBC (Bld) [#/Vol] 8.8 10*3/uL 4.4-11.0 [facility] White blood cell countOrdere d By: Arik Boswell on 02-27-2025 White blood cell count 0-5 SEEN /hpf 0-5 [facility] Basic Metabolic Profile (BMP )on 02-07-2025 BUN Normal 4-19 [facility] Comment on above: Result Comment: Canc elled via OM: Order cancelled - Patient discharged Performed By: #### L 500.2500 ####[facility] [address] [place], [address] BUN/CRE Normal 10-20 [facility] Comment on above: Result Comment: Canc elled via OM: Order cancelled - Patient discharged Performed By: #### L 500.2500 ####[facility] [address] [place], [address] Calcium Normal 7.6-11.0 [facility] Comment on above: Result Comment: Canc elled via OM: Order cancelled - Patient discharged Performed By: #### L 500.2500 ####[facility] [address] [place], [address] CL Normal 98-108 [facility] Comment on above: Result Comment: Canc elled via OM: Order cancelled - Patient discharged Performed By: #### L 500.2500 ####[facility] [address] [place], [address] CO2 Normal 21.0-32.0 [facility] Comment on above: Result Comment: Canc elled via OM: Order cancelled - Patient discharged Performed By: #### L 500.2500 ####[facility] [address] [place], [address] CREAT,SERUM Normal 0.70-1.20 [facility] Comment on above: Result Comment: Canc elled via OM: Order cancelled - Patient discharged Performed By: #### L 500.2500 ####[facility] [address] [place], [address] eGFR Normal >60 [facility] Comment on above: Result Comment: Canc elled via OM: Order cancelled - Patient discharged Performed By: #### L 500.2500 ####[facility] [address] [place], [address] GAP Normal 5-15 [facility] Comment on above: Result Comment: Canc elled via OM: Order cancelled - Patient discharged Performed By: #### L 500.2500 ####[facility] [address] [place], [address] GLU Normal 70-99 [facility] Comment on above: Result Comment: Canc elled via OM: Order cancelled - Patient discharged Performed By: #### L 500.2500 ####[facility] [address] [place], [address] Potassium Normal 3.3-5.1 [facility] Comment on above: Result Comment: Canc elled via OM: Order cancelled - Patient discharged Performed By: #### L 500.2500 ####[facility] [address] [place], [address] Basic Metabolic Profile (BMP) Normal 133-145 [facility] Comment on above: Result Comment: Canc elled via OM: Order cancelled - Patient discharged Performed By: #### L 500.2500 ####[facility] [address] [place], [address] Basic Metabolic Profile (BMP )on 02-06-2025 BUN Normal 4-19 [facility] Comment on above: Result Comment: Canc elled via OM: Order cancelled - Patient discharged Performed By: #### L 500.2500, L100.0100 ####[facility] [address] [place], [address] BUN/CRE Normal 10-20 [facility] Comment on above: Result Comment: Canc elled via OM: Order cancelled - Patient discharged Performed By: #### L 500.2500, L100.0100 ####[facility] [address] [place], [address] Calcium Normal 7.6-11.0 [facility] Comment on above: Result Comment: Canc elled via OM: Order cancelled - Patient discharged Performed By: #### L 500.2500, L100.0100 ####[facility] [address] [place], [address] CL Normal 98-108 [facility] Comment on above: Result Comment: Canc elled via OM: Order cancelled - Patient discharged Performed By: #### L 500.2500, L100.0100 ####[facility] [address] [place], [address] CO2 Normal 21.0-32.0 [facility] Comment on above: Result Comment: Canc elled via OM: Order cancelled - Patient discharged Performed By: #### L 500.2500, L100.0100 ####[facility] [address] [place], [address] CREAT,SERUM Normal 0.70-1.20 [facility] Comment on above: Result Comment: Canc elled via OM: Order cancelled - Patient discharged Performed By: #### L 500.2500, L100.0100 ####[facility] [address] [place], [address] eGFR Normal >60 [facility] Comment on above: Result Comment: Canc elled via OM: Order cancelled - Patient discharged Performed By: #### L 500.2500, L100.0100 ####[facility] [address] [place], [address] GAP Normal 5-15 [facility] Comment on above: Result Comment: Canc elled via OM: Order cancelled - Patient discharged Performed By: #### L 500.2500, L100.0100 ####[facility] [address] [place], [address] GLU Normal 70-99 [facility] Comment on above: Result Comment: Canc elled via OM: Order cancelled - Patient discharged Performed By: #### L 500.2500, L100.0100 ####[facility] [address] [place], [address] Potassium Normal 3.3-5.1 [facility] Comment on above: Result Comment: Canc elled via OM: Order cancelled - Patient discharged Performed By: #### L 500.2500, L100.0100 ####[facility] [address] [place], [address] Basic Metabolic Profile (BMP) Normal 133-145 [facility] Comment on above: Result Comment: Canc elled via OM: Order cancelled - Patient discharged Performed By: #### L 500.2500, L100.0100 ####[facility] [address] [place], [address] BUN Normal 4-19 [facility] Comment on above: Order Comment: Call MD with results STAT Result Comment: Canc elled via OM: MD Ordered Performed By: #### L 500.2500 ####[facility] [address] [place], [address] BUN/CRE Normal 10-20 [facility] Comment on above: Order Comment: Call MD with results STAT Result Comment: Canc elled via OM: MD Ordered Performed By: #### L 500.2500 ####[facility] [address] [place], [address] Calcium Normal 7.6-11.0 [facility] Comment on above: Order Comment: Call MD with results STAT Result Comment: Canc elled via OM: MD Ordered Performed By: #### L 500.2500 ####[facility] [address] [place], [address] CL Normal 98-108 [facility] Comment on above: Order Comment: Call MD with results STAT Result Comment: Canc elled via OM: MD Ordered Performed By: #### L 500.2500 ####[facility] [address] [place], [address] CO2 Normal 21.0-32.0 [facility] Comment on above: Order Comment: Call MD with results STAT Result Comment: Canc elled via OM: MD Ordered Performed By: #### L 500.2500 ####[facility] [address] [place], [address] CREAT,SERUM Normal 0.70-1.20 [facility] Comment on above: Order Comment: Call MD with results STAT Result Comment: Canc elled via OM: MD Ordered Performed By: #### L 500.2500 ####[facility] [address] [place], [address] eGFR Normal >60 [facility] Comment on above: Order Comment: Call MD with results STAT Result Comment: Canc elled via OM: MD Ordered Performed By: #### L 500.2500 ####[facility] [address] [place], [address] GAP Normal 5-15 [facility] Comment on above: Order Comment: Call MD with results STAT Result Comment: Canc elled via OM: MD Ordered Performed By: #### L 500.2500 ####[facility] [address] [place], [address] GLU Normal 70-99 [facility] Comment on above: Order Comment: Call MD with results STAT Result Comment: Canc elled via OM: MD Ordered Performed By: #### L 500.2500 ####[facility] [address] [place], [address] Potassium Normal 3.3-5.1 [facility] Comment on above: Order Comment: Call MD with results STAT Result Comment: Canc elled via OM: MD Ordered Performed By: #### L 500.2500 ####[facility] [address] [place], [address] Basic Metabolic Profile (BMP) Normal 133-145 [facility] Comment on above: Order Comment: Call MD with results STAT Result Comment: Canc elled via OM: MD Ordered Performed By: #### L 500.2500 ####[facility] [address] [place], [address] BUN Normal 4-19 [facility] Comment on above: Order Comment: Call MD with results STAT Result Comment: Canc elled via OM: MD Ordered Performed By: #### L 500.2500 ####[facility] [address] [place], [address] BUN/CRE Normal 10-20 [facility] Comment on above: Order Comment: Call MD with results STAT Result Comment: Canc elled via OM: MD Ordered Performed By: #### L 500.2500 ####[facility] [address] [place], [address] Calcium Normal 7.6-11.0 [facility] Comment on above: Order Comment: Call MD with results STAT Result Comment: Canc elled via OM: MD Ordered Performed By: #### L 500.2500 ####[facility] [address] [place], [address] CL Normal 98-108 [facility] Comment on above: Order Comment: Call MD with results STAT Result Comment: Can elled via OM: MD Ordered Performed By: #### L 500.2500 ####[facility] [address] [place], [address] CO2 Normal 21.0-32.0 [facility] Comment on above: Order Comment: Call MD with results STAT Result Comment: Canc elled via OM: MD Ordered Performed By: #### L 500.2500 ####[facility] [address] [place], [address] CREAT,SERUM Normal 0.70-1.20 [facility] Comment on above: Order Comment: Call MD with results STAT Result Comment: Canc elled via OM: MD Ordered Performed By: #### L 500.2500 ####[facility] [address] [place], [address] eGFR Normal >60 [facility] Comment on above: Order Comment: Call MD with results STAT Result Comment: Canc elled via OM: MD Ordered Performed By: #### L 500.2500 ####[facility] [address] [place], [address] GAP Normal 5-15 [facility] Comment on above: Order Comment: Call MD with results STAT Result Comment: Canc elled via OM: MD Ordered Performed By: #### L 500.2500 ####[facility] [address] [place], [address] GLU Normal 70-99 [facility] Comment on above: Order Comment: Call MD with results STAT Result Comment: Canc elled via OM: MD Ordered Performed By: #### L 500.2500 ####[facility] [address] [place], [address] Potassium Normal 3.3-5.1 [facility] Comment on above: Order Comment: Call MD with results STAT Result Comment: Canc elled via OM: MD Ordered Performed By: #### L 500.2500 ####[facility] [address] [place], [address] Basic Metabolic Profile (BMP) Normal 133-145 [facility] Comment on above: Order Comment: Call MD with results STAT Result Comment: Canc elled via OM: MD Ordered Performed By: #### L 500.2500 ####[facility] [address] [place], [address] CBC W/Diff, Automatedon 07-0 -2024 Absolute Neut Normal 2.0-7.7 [facility] Comment on above: Result Comment: Canc elled via OM: Order cancelled - Patient discharged Performed By: #### L 500.2500, L100.0100 ####[facility] [address] [place], [address] HCT Normal 40-54 [facility] Comment on above: Result Comment: Canc elled via OM: Order cancelled - Patient discharged Performed By: #### L 500.2500, L100.0100 ####[facility] [address] [place], [address] HGB Normal 13.0-16.5 [facility] Comment on above: Result Comment: Canc elled via OM: Order cancelled - Patient discharged Performed By: #### L 500.2500, L100.0100 ####[facility] [address] [place], [address] MCH Normal 27.0-32.0 [facility] Comment on above: Result Comment: Canc elled via OM: Order cancelled - Patient discharged Performed By: #### L 500.2500, L100.0100 ####[facility] [address] [place], [address] MCHC Normal 32-36 [facility] Comment on above: Result Comment: Canc elled via OM: Order cancelled - Patient discharged Performed By: #### L 500.2500, L100.0100 ####[facility] [address] [place], [address] MCV Normal 80-94 [facility] Comment on above: Result Comment: Canc elled via OM: Order cancelled - Patient discharged Performed By: #### L 500.2500, L100.0100 ####[facility] [address] [place], [address] NEUT% Normal 47-70 [facility] Comment on above: Result Comment: Canc elled via OM: Order cancelled - Patient discharged Performed By: #### L 500.2500, L100.0100 ####[facility] [address] [place], [address] PLT Normal 150-450 [facility] Comment on above: Result Comment: Canc elled via OM: Order cancelled - Patient discharged Performed By: #### L 500.2500, L100.0100 ####[facility] [address] [place], [address] RBC Normal 4.6-6.2 [facility] Comment on above: Result Comment: Canc elled via OM: Order cancelled - Patient discharged Performed By: #### L 500.2500, L100.0100 ####[facility] [address] [place], [address] RDW CV Normal 11.6-14.6 [facility] Comment on above: Result Comment: Canc elled via OM: Order cancelled - Patient discharged Performed By: #### L 500.2500, L100.0100 ####[facility] [address] [place], [address] RDW SD Normal 35.1-43.9 [facility] Comment on above: Result Comment: Canc elled via OM: Order cancelled - Patient discharged Performed By: #### L 500.2500, L100.0100 ####[facility] [address] [place], [address] WBC Normal 4.4-11.0 [facility] Comment on above: Result Comment: Canc elled via OM: Order cancelled - Patient discharged Performed By: #### L 500.2500, L100.0100 ####[facility] [address] [place], [address] 12 Lead EKGon 02-05-[address] [facility] [address] [place] [address] 12 Lead EKG 02/05/25 0238 MR#: [id number] Acct: [id number] Name: UNA COSBY Rep #: [id number] : 1995 29 From: Robbi Salazar MD [...] Sinus tachycardia Otherwise normal ECG Confirmed by NESTOR MIRELES, ROBBI ([id number]), web editor DOMINIC KEENE ([id number]) on 02/06/2025 6:37:13 AM Referred By: Confirmed By: ROBBI SALAZAR MD 02/06/25636 Date Robbi Salazar MD CC: Dr. Alo Zambrano MD; Dr. Babita Rivera, DO; No Primary Care Physician Signed Normal [facility] Absolute lymphocyte countOrd ered By: Sarah White on 02-05-2025 Lymphocytes Auto (Unsp spec) [#/Vol] 4.47 10*3/uL 0.83-4.51 [facility] Absolute lymphocyte countOrd ered By: Babita Rivera on 02-05-2025 Lymphocytes Auto (Unsp spec) [#/Vol] 4.05 10*3/uL 0.83-4.51 [facility] Absolute neutrophil countOrd ered By: Sarah White on 02-05-2025 Neutrophils (Bld) [#/Vol] 6.8 10*3/uL 2.0-7.7 [facility] Absolute neutrophil countOrd ered By: Babita Rivera on 02-05-2025 Neutrophils (Bld) [#/Vol] 7.3 10*3/uL 2.0-7.7 [facility] Anion gap in Serum or Plasma Ordered By: Sarah White on 02-05-2025 Anion gap [Moles/Vol] 7 mmol/L 12-21 [facility] Anion gap in Serum or Plasma Ordered By: Babita Rivera on 02-05-2025 Anion gap [Moles/Vol] 23 mmol/L High - [facility] Automated lymphocyte count a s percentage of total leukocytesOrdered By: White on 02-05-2025 Lymphocytes/100 WBC Auto (Unsp spec) 34.1 % [facility] Automated lymphocyte count a s percentage of total leukocytesOrdered By: Babita Rivera on 02-05-2025 Lymphocytes/100 WBC Auto (Unsp spec) 31.1 % [facility] BUN/creatinine ratioOrdered By: White on 02-05-2025 Urea nitrogen/Creatinine [Mass ratio] 20.0 mg/mg - [facility] BUN/creatinine ratioOrdered By: Babita Rivera on 02-05-2025 Urea nitrogen/Creatinine [Mass ratio] 19.9 mg/mg 05-28 [facility] Basic Metabolic Profile (BMP )on 02-05-2025 BUN Normal 4-19 [facility] Comment on above: Order Comment: Call MD with results STAT Result Comment: Canc elled via OM: MD Ordered Performed By: #### L 500.2500 ####[facility] [address] [place], [address] BUN/CRE Normal - [facility] Comment on above: Order Comment: Call MD with results STAT Result Comment: Canc elled via OM: MD Ordered Performed By: #### L 500.2500 ####[facility] [address] [place], [address] Calcium Normal 7.6-11.0 [facility] Comment on above: Order Comment: Call MD with results STAT Result Comment: Canc elled via OM: MD Ordered Performed By: #### L 500.2500 ####[facility] [address] [place], [address] CL Normal 98-108 [facility] Comment on above: Order Comment: Call MD with results STAT Result Comment: Canc elled via OM: MD Ordered Performed By: #### L 500.2500 ####[facility] [address] [place], [address] CO2 Normal 21.0-32.0 [facility] Comment on above: Order Comment: Call MD with results STAT Result Comment: Canc elled via OM: MD Ordered Performed By: #### L 500.2500 ####[facility] [address] [place], [address] CREAT,SERUM Normal 0.70-1.20 [facility] Comment on above: Order Comment: Call MD with results STAT Result Comment: Canc elled via OM: MD Ordered Performed By: #### L 500.2500 ####[facility] [address] [place], [address] eGFR Normal >60 [facility] Comment on above: Order Comment: Call MD with results STAT Result Comment: Canc elled via OM: MD Ordered Performed By: #### L 500.2500 ####[facility] [address] [place], [address] GAP Normal 5-15 [facility] Comment on above: Order Comment: Call MD with results STAT Result Comment: Canc elled via OM: MD Ordered Performed By: #### L 500.2500 ####[facility] [address] [place], [address] GLU Normal 70-99 [facility] Comment on above: Order Comment: Call MD with results STAT Result Comment: Canc elled via OM: MD Ordered Performed By: #### L 500.2500 ####[facility] [address] [place], [address] Potassium Normal 3.3-5.1 [facility] Comment on above: Order Comment: Call MD with results STAT Result Comment: Canc elled via OM: MD Ordered Performed By: #### L 500.2500 ####[facility] [address] [place], [address] Basic Metabolic Profile (BMP) Normal 133-145 [facility] Comment on above: Order Comment: Call MD with results STAT Result Comment: Canc elled via OM: MD Ordered Performed By: #### L 500.2500 ####[facility] [address] [place], [address] BUN Normal 4-19 [facility] Comment on above: Order Comment: Call MD with results STAT Result Comment: Canc elled via OM: MD Ordered Performed By: #### L 100.0100 #### [facility] [address] [place], [address] BUN/CRE Normal 10-20 [facility] Comment on above: Order Comment: Call MD with results STAT Result Comment: Canc elled via OM: MD Ordered Performed By: #### L 100.0100 #### [facility] [address] [place], [address] Calcium Normal 7.6-11.0 [facility] Comment on above: Order Comment: Call MD with results STAT Result Comment: Canc elled via OM: MD Ordered Performed By: #### L 100.0100 #### [facility] [address] [place], [address] CL Normal 98-108 [facility] Comment on above: Order Comment: Call MD with results STAT Result Comment: Canc elled via OM: MD Ordered Performed By: #### L 100.0100 #### [facility] [address] [place], [address] CO2 Normal 21.0-32.0 [facility] Comment on above: Order Comment: Call MD with results STAT Result Comment: Canc elled via OM: MD Ordered Performed By: #### L 100.0100 #### [facility] [address] [place], [address] CREAT,SERUM Normal 0.70-1.20 [facility] Comment on above: Order Comment: Call MD with results STAT Result Comment: Canc elled via OM: MD Ordered Performed By: #### L 100.0100 #### [facility] [address] [place], [address] eGFR Normal >60 [facility] Comment on above: Order Comment: Call MD with results STAT Result Comment: Canc elled via OM: MD Ordered Performed By: #### L 100.0100 #### [facility] [address] [place], [address] GAP Normal 5-15 [facility] Comment on above: Order Comment: Call MD with results STAT Result Comment: Canc elled via OM: MD Ordered Performed By: #### L 100.0100 #### [facility] [address] [place], [address] GLU Normal 70-99 [facility] Comment on above: Order Comment: Call MD with results STAT Result Comment: Canc elled via OM: MD Ordered Performed By: #### L 100.0100 #### [facility] [address] [place], [address] Potassium Normal 3.3-5.1 [facility] Comment on above: Order Comment: Call MD with results STAT Result Comment: Canc elled via OM: MD Ordered Performed By: #### L 100.0100 #### [facility] [address] [place], [address] Basic Metabolic Profile (BMP) Normal 133-145 [facility] Comment on above: Order Comment: Call MD with results STAT Result Comment: Canc elled via OM: MD Ordered Performed By: #### L 100.0100 #### [facility] [address] [place], [address] BUN/CRE 20.0 RATIO Normal 10-20 [facility] Comment on above: Order Comment: Call MD with results STAT Performed By: #### L 500.2500 #### [facility] [address] [place], [address] Calcium [Mass/Vol] 7.7 mg/dL Normal 7.6-11.0 [facility] Comment on above: Order Comment: Call MD with results STAT Performed By: #### L 500.2500 #### [facility] [address] [place], [address] Chloride [Moles/Vol] 105 mmol/L Normal 98-108 [facility] Comment on above: Order Comment: Call MD with results STAT Performed By: #### L 500.2500 #### [facility] [address] [place], [address] CO2 [Moles/Vol] 26.0 mmol/L Normal 21.0-32.0 [facility] Comment on above: Order Comment: Call MD with results STAT Performed By: #### L 500.2500 #### [facility] [address] [place], [address] Creatinine [Mass/Vol] 0.51 mg/dL Low 0.70-1.20 [facility] Comment on above: Order Comment: Call MD with results STAT Performed By: #### L 500.2500 #### [facility] [address] [place], [address] ECRCL 188.95 ml/min Normal 50-250 [facility] Comment on above: Order Comment: Call MD with results STAT Performed By: #### L 500.2500 #### [facility] [address] [place], [address] GAP 7 Normal 5-15 [facility] Comment on above: Order Comment: Call MD with results STAT Performed By: #### L 500.2500 #### [facility] [address] [place], [address] GFR/1.73 sq M.predicted among non-blacks MDRD (S/P/Bld) [Vol rate/Area] 142 mL/min/{1.73_m2} Normal >60 [facility] Comment on above: Order Comment: Call MD with results STAT Result Comment: mL/m in/1.73m2 CKD-EPI Creatinine Equation (2020) Performed By: #### L 500.2500 #### [facility] [address] [place], [address] Glucose [Mass/Vol] 170 mg/dL High 70-99 [facility] Comment on above: Order Comment: Call MD with results STAT Performed By: #### L 500.2500 #### [facility] [address] [place], [address] Potassium [Moles/Vol] 3.4 mmol/L Normal 3.3-5.1 [facility] Comment on above: Order Comment: Call MD with results STAT Performed By: #### L 500.2500 #### [facility] [address] [place], [address] Sodium [Moles/Vol] 137 mmol/L Normal 133-145 [facility] Comment on above: Order Comment: Call MD with results STAT Performed By: #### L 500.2500 #### [facility] [address] [place], [address] Urea nitrogen [Mass/Vol] 10 mg/dL Normal 4-19 [facility] Comment on above: Order Comment: Call MD with results STAT Performed By: #### L 500.2500 #### [facility] [address] [place], [address] BUN/CRE 20.0 RATIO Normal 10-20 [facility] Comment on above: Order Comment: Call MD with results STAT Performed By: #### L 100.0100 #### [facility] [address] [place], [address] Calcium [Mass/Vol] 8.2 mg/dL Normal 7.6-11.0 [facility] Comment on above: Order Comment: Call MD with results STAT Performed By: #### L 100.0100 #### [facility] [address] [place], [address] Chloride [Moles/Vol] 106 mmol/L Normal 98-108 [facility] Comment on above: Order Comment: Call MD with results STAT Performed By: #### L 100.0100 #### [facility] [address] [place], [address] CO2 [Moles/Vol] 26.0 mmol/L Normal 21.0-32.0 [facility] Comment on above: Order Comment: Call MD with results STAT Performed By: #### L 100.0100 #### [facility] [address] [place], [address] Creatinine [Mass/Vol] 0.61 mg/dL Low 0.70-1.20 [facility] Comment on above: Order Comment: Call MD with results STAT Performed By: #### L 100.0100 #### [facility] [address] [place], [address] ECRCL 157.97 ml/min Normal 50-250 [facility] Comment on above: Order Comment: Call MD with results STAT Performed By: #### L 100.0100 #### [facility] [address] [place], [address] GAP 9 Normal 5-15 [facility] Comment on above: Order Comment: Call MD with results STAT Performed By: #### L 100.0100 #### [facility] [address] [place], [address] GFR/1.73 sq M.predicted among non-blacks MDRD (S/P/Bld) [Vol rate/Area] 135 mL/min/{1.73_m2} Normal >60 [facility] Comment on above: Order Comment: Call MD with results STAT Result Comment: mL/m in/1.73m2 CKD-EPI Creatinine Equation (2020) Performed By: #### L 100.0100 #### [facility] [address] [place], [address] Glucose [Mass/Vol] 155 mg/dL High 70-99 [facility] Comment on above: Order Comment: Call MD with results STAT Performed By: #### L 100.0100 #### [facility] [address] [place], [address] Potassium [Moles/Vol] 3.9 mmol/L Normal 3.3-5.1 [facility] Comment on above: Order Comment: Call MD with results STAT Performed By: #### L 100.0100 #### [facility] [address] [place], [address] Sodium [Moles/Vol] 141 mmol/L Normal 133-145 [facility] Comment on above: Order Comment: Call MD with results STAT Performed By: #### L 100.0100 #### [facility] [address] [place], [address] Urea nitrogen [Mass/Vol] 12 mg/dL Normal 4-19 [facility] Comment on above: Order Comment: Call MD with results STAT Performed By: #### L 100.0100 #### [facility] [address] [place], [address] BUN/CRE 23.2 RATIO High 10-20 [facility] Comment on above: Order Comment: Call MD with results STAT Performed By: #### L 100.0100 #### [facility] [address] [place], [address] Calcium [Mass/Vol] 8.0 mg/dL Normal 7.6-11.0 [facility] Comment on above: Order Comment: Call MD with results STAT Performed By: #### L 100.0100 #### [facility] [address] [place], [address] Chloride [Moles/Vol] 103 mmol/L Normal 98-108 [facility] Comment on above: Order Comment: Call MD with results STAT Performed By: #### L 100.0100 #### [facility] [address] [place], [address] CO2 [Moles/Vol] 22.9 mmol/L Normal 21.0-32.0 [facility] Comment on above: Order Comment: Call MD with results STAT Performed By: #### L 100.0100 #### [facility] [address] [place], [address] Creatinine [Mass/Vol] 0.61 mg/dL Low 0.70-1.20 [facility] Comment on above: Order Comment: Call MD with results STAT Performed By: #### L 100.0100 #### [facility] [address] [place], [address] ECRCL 157.97 ml/min Normal 50-250 [facility] Comment on above: Order Comment: Call MD with results STAT Performed By: #### L 100.0100 #### [facility] [address] [place], [address] GAP 12 Normal 5-15 [facility] Comment on above: Order Comment: Call MD with results STAT Performed By: #### L 100.0100 #### [facility] [address] [place], [address] GFR/1.73 sq M.predicted among non-blacks MDRD (S/P/Bld) [Vol rate/Area] 135 mL/min/{1.73_m2} Normal >60 [facility] Comment on above: Order Comment: Call MD with results STAT Result Comment: mL/m in/1.73m2 CKD-EPI Creatinine Equation (2020) Performed By: #### L 100.0100 #### [facility] [address] [place], [address] Glucose [Mass/Vol] 248 mg/dL High 70-99 [facility] Comment on above: Order Comment: Call MD with results STAT Performed By: #### L 100.0100 #### [facility] [address] [place], [address] Potassium [Moles/Vol] 3.7 mmol/L Normal 3.3-5.1 [facility] Comment on above: Order Comment: Call MD with results STAT Performed By: #### L 100.0100 #### [facility] [address] [place], [address] Sodium [Moles/Vol] 137 mmol/L Normal 133-145 [facility] Comment on above: Order Comment: Call MD with results STAT Performed By: #### L 100.0100 #### [facility] [address] [place], [address] Urea nitrogen [Mass/Vol] 14 mg/dL Normal 4-19 [facility] Comment on above: Order Comment: Call MD with results STAT Performed By: #### L 100.0100 #### [facility] [address] [place], [address] BUN/CRE 19.9 RATIO Normal 10-20 [facility] Comment on above: Performed By: #### L 500.2500 #### [facility] [address] [place], [address] Calcium [Mass/Vol] 10.0 mg/dL Normal 7.6-11.0 [facility] Comment on above: Performed By: #### L 500.2500 #### [facility] [address] [place], [address] Chloride [Moles/Vol] 86 mmol/L Low 98-108 [facility] Comment on above: Performed By: #### L 500.2500 #### [facility] [address] [place], [address] CO2 [Moles/Vol] 19.6 mmol/L Low 21.0-32.0 [facility] Comment on above: Performed By: #### L 500.2500 #### [facility] [address] [place], [address] Creatinine [Mass/Vol] 0.97 mg/dL Normal 0.70-1.20 [facility] Comment on above: Performed By: #### L 500.2500 #### [facility] [address] [place], [address] ECRCL 99.02 ml/min Normal 50-250 [facility] Comment on above: Performed By: #### L 500.2500 #### [facility] [address] [place], [address] GAP 23 High 5-15 [facility] Comment on above: Performed By: #### L 500.2500 #### [facility] [address] [place], [address] GFR/1.73 sq M.predicted among non-blacks MDRD (S/P/Bld) [Vol rate/Area] 110 mL/min/{1.73_m2} Normal >60 [facility] Comment on above: Result Comment: mL/m in/1.73m2 CKD-EPI Creatinine Equation (2020) Performed By: #### L 500.2500 #### [facility] [address] [place], [address] Glucose [Mass/Vol] 736 mg/dL Invalid Interpretation Code 70-99 [facility] Comment on above: Result Comment: Crit ical Result(s) Called at: 02/05/2025-03:34 by: Koko Oh to Casimiro Cast.??Results read back by same. Performed By: #### L 500.2500 #### [facility] [address] [place], [address] Potassium [Moles/Vol] 4.5 mmol/L Normal 3.3-5.1 [facility] Comment on above: Performed By: #### L 500.2500 #### [facility] [address] [place], [address] Sodium [Moles/Vol] 128 mmol/L Low 133-145 [facility] Comment on above: Performed By: #### L 500.2500 #### [facility] [address] [place], [address] Urea nitrogen [Mass/Vol] 19 mg/dL Normal 4-19 [facility] Comment on above: Performed By: #### L 500.2500 #### [facility] [address] [place], [address] Basophil percentageOrdered B y: Sarah White on 02-05-2025 Basophils/100 WBC (Bld) 0.6 % 0-1 [facility] Basophil percentageOrdered B y: Babita Ungrowan on 02-05-2025 Basophils/100 WBC (Bld) 0.7 % 0-1 [facility] Bedside Glucoseon 02-05-2025 FINGERSTICK GLU 138 mg/dL High 74-106 [facility] Comment on above: Result Comment: TEJAL GEMENT OF PATIENT CARE PER NURSING PROTOCOL Performed By: #### L 400.0001 #### [facility] [address] [facility] [address] FINGERSTICK GLU 149 mg/dL High [address] [place] [address] Comment on above: Result Comment: TEJAL GEMENT OF PATIENT CARE PER NURSING PROTOCOL Performed By: #### L 501.080 ####[facility] [address] [facility] [address] FINGERSTICK GLU 169 mg/dL High [address] [place] [address] Comment on above: Result Comment: TEJAL GEMENT OF PATIENT CARE PER NURSING PROTOCOL Performed By: #### L 501.080 ####[facility] [address] [facility] [address] FINGERSTICK GLU 158 mg/dL High [address] [place] [address] Comment on above: Result Comment: TEJAL GEMENT OF PATIENT CARE PER NURSING PROTOCOL Performed By: #### L 501.080 #### [facility] [address] [facility] [address] FINGERSTICK GLU 139 mg/dL High [facility]106 [facility] Comment on above: Result Comment: TEJAL GEMENT OF PATIENT CARE PER NURSING PROTOCOL Performed By: #### L 100.0100 #### [facility] [address] [facility] [address] FINGERSTICK GLU 159 mg/dL High [facility]106 [facility] Comment on above: Result Comment: TEJAL GEMENT OF PATIENT CARE PER NURSING PROTOCOL Performed By: #### L 501.080 #### [facility] [address] [place], [address] FINGERSTICK GLU 181 mg/dL High [address] [place] [address] Comment on above: Result Comment: TEJAL GEMENT OF PATIENT CARE PER NURSING PROTOCOL Performed By: #### L 500.2500 #### [facility] [address] [place], [address] FINGERSTICK GLU 269 mg/dL High -[address] [place] [address] Comment on above: Result Comment: TEJAL GEMENT OF PATIENT CARE PER NURSING PROTOCOL Performed By: #### L 100.0100 #### [facility] [address] [place], [address] FINGERSTICK GLU 308 mg/dL High [address] [place] [address] Comment on above: Result Comment: TEJAL GEMENT OF PATIENT CARE PER NURSING PROTOCOL Performed By: #### L 400.0001 #### [facility] [address] [place], [address] FINGERSTICK GLU 430 mg/dL High [address] [place] [address] Comment on above: Result Comment: TEJAL GEMENT OF PATIENT CARE PER NURSING PROTOCOL Performed By: #### L 500.2500 #### [facility] [address] [place], [address] FINGERSTICK GLU > 500 Invalid Interpretation Code -[address] [place] [address] Comment on above: Result Comment: Dr Erica egan Followed MANAGEMENT OF PATIENT CARE PER NURSING PROTOCOL Performed By: #### L 400.0001 #### [facility] [address] [place], [address] Beta-Hydroxbytyrateon 2024 BETA-HYDROXYBUT 5.5 mmol/L High 0.0-0.3 [facility] Comment on above: Performed By: #### L 500.2500 #### [facility] [address] [place], [address] Beta-hydroxybutyrateOrdered By: Lupeus Miguel on 02-05-2025 Beta hydroxybutyrate [Mass/Vol] 5.5 mmol/L High 0.0-0.3 [facility] Bilirubin Test strip Ql (U)O rdered By: Remus Ungrowan on 02-05-2025 Bilirubin Ql (U) Negative Negative [facility] Blood manual differential co mment interpretation (narrative result)Ordered By: Babita Rivera on 02-05-2025 Manual differential comment Gigi (Bld) [Interp] SCANNED [facility] CBC W/Diff, Automatedon 01-09 ATYPICAL LYMPH 1+ Normal [facility] Comment on above: Performed By: #### L 100.0100, L501.9985 ####[facility] [address] [place], [place], [address] SMEAR COMMENT SCANNED Normal [facility] Comment on above: Performed By: #### L 500.2500 #### [facility] [address] [place], [place], [address] Carbon dioxide, total [Moles /volume] in Central venous bloodOrdered By: Sarah Oh on 02-05-2025 CO2 [Moles/Vol] 26.0 mmol/L 21.0-32.0 [facility] Carbon dioxide, total [Moles /volume] in Central venous bloodOrdered By: Babita Rivera on 02-05-2025 CO2 [Moles/Vol] 19.6 mmol/L Low 21.0-32.0 [facility] Chloride assayOrdered By: Jaimie Oh on 02-05-2025 Chloride [Moles/Vol] 105 mmol/L 98-108 [facility] Chloride assayOrdered By: Cata Rivera on 02-05-2025 Chloride [Moles/Vol] 86 mmol/L Low 98-108 [facility] Emergency Department Summary on 02-05-2025 Emergency Department Summary [facility] Medical Records Department [address] [place] [address] Emergency Department Summary 02/05/25 MR#: [id number] Acct: [id number] Name: DOMIUNA JUAN Rep #: [id number] : 1995 29 From: Babita Rivera DO PCP: Care Physician,No Primary Status:ADM IN Location: ICU [id number] HPI History of Present Illness Chief Complaint: [...] denies fevers or chills or sweats. PFSH PFS Medical History (Updated 02/05/25 @ 03:43 by [...] sounds Ca (more content not included)... Normal [facility] Eosinophil percentageOrdered By: Sarah White on 02-05-2025 Eosinophils/100 WBC (Bld) 4.2 % 0-5 [facility] Eosinophil percentageOrdered By: Remus Ungur on 02-05-2025 Eosinophils/100 WBC (Bld) 3.4 % 0-5 [facility] Erythrocyte distribution wid th ratioOrdered By: Sarah White on 02-05-2025 Erythrocyte distribution width (RBC) [Ratio] 16.2 % High 11.6-14.6 [facility] Erythrocyte distribution wid th ratioOrdered By: Remus Ungur on 02-05-2025 Erythrocyte distribution width (RBC) [Ratio] 16.2 % High 11.6-14.6 [facility] Erythrocyte distribution wid th standard deviationOrdered By: Sarah White on 02-05-2025 Erythrocyte distribution width (RBC) [Ratio] 44.2 fl High 35.1-43.9 [facility] Erythrocyte distribution wid th standard deviationOrdered By: Remus Ungur on 02-05-2025 Erythrocyte distribution width (RBC) [Ratio] 45.2 fl High 35.1-43.9 [facility] Glomerular filtration rate ( GFR) estimation/1.73 sq m using serum, plasma, or whole bOrdered By: Sarah White on 02-05-2025 GFR/1.73 sq M.predicted among non-blacks MDRD (S/P/Bld) [Vol rate/Area] 142 mL/min/{1.73_m2} >60 [facility] Comment on above: mL/min/1.73m2 CKD-EP I Creatinine Equation (2020) Glomerular filtration rate ( GFR) estimation/1.73 sq m using serum, plasma, or whole bOrdered By: Remus Ungur on 02-05-2025 GFR/1.73 sq M.predicted among non-blacks MDRD (S/P/Bld) [Vol rate/Area] 110 mL/min/{1.73_m2} >60 [facility] Comment on above: mL/min/1.73m2 CKD-EP I Creatinine Equation (2020) [facility] deOrdered By: Aol Zambrano on 02-05-2025 Glucose [Mass/Vol] 138 mg/dL High 74-106 [facility] Comment on above: MANAGEMENT OF PATIEN T CARE PER NURSING PROTOCOL Glucose measurement at bedsi deOrdered By: Sarah Oh on 02-05-2025 Glucose [Mass/Vol] 430 mg/dL High 74-106 [facility] Comment on above: MANAGEMENT OF PATIEN T CARE PER NURSING PROTOCOL H AND P Exam - [facility] 02-05-2025 H&P Exam - Hospitalist [facility] Medical Records Department [address] [place] [address] H P Exam - Hospitalist 02/05/25 0343 MR#: [id number] Acct: [id number] Name: UNA COSBY Rep #: [id number] : 1995 29 From: Sarah Oh MD PCP: Care Physician,No Primary Status:ADM IN Location: ICU [id number] HPI - General General Date of Admission: 02/05/25 Date of Service: 02/05/25 Chief Complaint: N/V, elevated BS. 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 [facility] Medical History Noncompliance with medication regimen Anxiety [...] Examination: Gene (more content not included)... Normal [facility] Hematocrit Auto (Bld) [Volum e fraction]Ordered By: Sarah Oh on 02-05-2025 Hematocrit (Bld) [Volume fraction] 32.5 % Low 40-54 [facility] Hematocrit Auto (Bld) [Volum e fraction]Ordered By: Babita Rivera on 02-05-2025 Hematocrit (Bld) [Volume fraction] 39.3 % Low 40-54 [facility] Hemoglobin A1con 02-05-2025 HbA1c (Bld) [Mass fraction] 15.5 % High <=5.6 [facility] Comment on above: Result Comment: Norm al < 5.7 % Prediabetic 5.7 - 6.4 % Diabetic >or= 6.5 % Please note range changes. Performed By: #### L 100.0100, L501.9985 ####[facility] [address] [place], [address] Hemoglobin A1c percentageOrd ered By: Sarah Oh on 02-05-2025 HbA1c (Bld) [Mass fraction] 15.5 % High <5.7 [facility] Comment on above: Normal < 5.7 % Predi abetic 5.7 - 6.4 % Diabetic >or= 6.5 % Please note range changes. Hemoglobin measurementOrdere d By: Sarah Oh on 02-05-2025 Hemoglobin (Bld) [Mass/Vol] 10.4 g/dL Low 13.0-16.5 [facility] Hemoglobin measurementOrdere d By: Babita Rivera on 02-05-2025 Hemoglobin (Bld) [Mass/Vol] 12.3 g/dL Low 13.0-16.5 [facility] Immature granulocytes/100 WB C Auto (Bld)Ordered By: Sarah Oh on 02-05-2025 Immature granulocytes/100 WBC (Bld) 0.300 % 0.0-0.9 [facility] Comment on above: IG% - Immature Granu locytes (promyelocytes, myelocytes and metamyelocytes) > 1% indicates that a LEFT SHIFT is Present. Immature granulocytes/100 WB C Auto (Bld)Ordered By: Babita Rivera on 02-05-2025 Immature granulocytes/100 WBC (Bld) 0.200 % 0.0-0.9 [facility] Comment on above: IG% - Immature Granu locytes (promyelocytes, myelocytes and metamyelocytes) > 1% indicates that a LEFT SHIFT is Present. Ketones Test strip Ql (U)Ord ered By: Babita Rivera on 02-05-2025 Ketones Ql (U) 150 mg/dl Abnormal Negative [facility] Comment on above: CRITICAL VALUE *HCRI TICAL VALUE CALLED TO [id number]/30/25 0443 Serafin Bell.RESULTS READ BACK BY SAME. M8200.1000on 02-05-2025 M8200.1000 Normal Reference Ran ge = Negative MRSA DNA Nose Ql LM+probe GeneXpert Instrument, PCR method MRSA PCR MRSA NEGATIVE Normal [facility] Comment on above: Performed By: #### M 8200.1000 ####[facility] [address] [place], [address] MCV (mean corpuscular volume ) determinationOrdered By: Sarah Oh on 02-05-2025 MCV (RBC) [Entitic vol] 75.8 fL Low 80-94 [facility] MCV (mean corpuscular volume ) determinationOrdered By: Babita Rivera on 02-05-2025 MCV (RBC) [Entitic vol] 76.6 fL Low 80-94 [facility] Magnesiumon 02-05-2025 Magnesium [Mass/Vol] 1.9 mg/dL Normal 1.5-2.2 [facility] Comment on above: Order Comment: Comme nts: may add to ED labs Performed By: #### L 100.0100 #### [facility] [address] [place], [address] Magnesium measurement (mass/ volume)Ordered By: Sarah Oh on 02-05-2025 Magnesium (Unsp spec) [Mass/Vol] 1.9 mg/dL 1.5-2.2 [facility] Mean corpuscular hemoglobin (MCH) determinationOrdered By: Sarah Oh on 02-05-2025 MCH (RBC) [Entitic mass] 24.2 pg Low 27.0-32.0 [facility] Mean corpuscular hemoglobin (MCH) determinationOrdered By: Babita Rivera on 02-05-2025 MCH (RBC) [Entitic mass] 24.0 pg Low 27.0-32.0 [facility] Mean corpuscular hemoglobin concentration (MCHC) determinationOrdered By: Sarah Oh on 02-05-2025 MCHC (RBC) [Mass/Vol] 32.0 g/dL 32-36 [facility] Mean corpuscular hemoglobin concentration (MCHC) determinationOrdered By: Babita Rivera on 02-05-2025 MCHC (RBC) [Mass/Vol] 31.3 g/dL Low 32-36 [facility] Mean platelet volume determi nationOrdered By: Sarah Oh on 02-05-2025 Platelet mean volume (Bld) [Entitic vol] 10.8 fL 6.2-12.0 [facility] Mean platelet volume determi nationOrdered By: Babita Rivera on 02-05-2025 Platelet mean volume (Bld) [Entitic vol] 11.4 fL 6.2-12.0 [facility] Microscopic analysis of urin e for red blood cells (RBC)Ordered By: Babita Rivera on 02-05-2025 Microscopic analysis of urine for red blood cells (RBC) 0-5 SEEN /hpf 0-5 [facility] Monocyte percentageOrdered B y: Sarah White on 02-05-2025 Monocytes/100 WBC (Bld) 8.5 % 0-10 [facility] Monocyte percentageOrdered B y: Remus Ungur on 02-05-2025 Monocytes/100 WBC (Bld) 9.0 % 0-10 [facility] Mucus LM Ql (Urine sed)Order ed By: Remus Ungur on 02-05-2025 Mucus Ql (Urine sed) 0 SEEN /hpf [facility] Nasal methicillin resistant Staphylococcus aureus (MRSA) DNA detection by PCROrdered By: White on 02-05-2025 MRSA DNA LM+probe Ql (Nose) [facility] Neutrophil percentageOrdered By: White on 02-05-2025 Neutrophils/100 WBC (Bld) 52.3 % 47-70 [facility] Neutrophil percentageOrdered By: Remus Ungur on 02-05-2025 Neutrophils/100 WBC (Bld) 55.6 % 47-70 [facility] Nucleated red blood cell per centageOrdered By: Sarah White on 02-05-2025 Nucleated RBC/100 WBC (Bld) [Ratio] 0 % 0-5 [facility] Nucleated red blood cell per centageOrdered By: Rem Ungur on 02-05-2025 Nucleated RBC/100 WBC (Bld) [Ratio] 0 % 0-5 [facility] Phosphoruson 02-05-2025 Phosphate [Mass/Vol] 4.6 mg/dL High 2.7-4.5 [facility] Comment on above: Order Comment: Comme nts: May add to ED labs Performed By: #### L 100.0100 #### [facility] [address] [place], [address] Platelet countOrdered By: Jaimie Oh on 02-05-2025 Platelets (Bld) [#/Vol] 297 10*3/uL 150-450 [facility] Platelet countOrdered By: Cata Rivera on 02-05-2025 Platelets (Bld) [#/Vol] 344 10*3/uL 150-450 [facility] Potassium measurement (mass/ volume)Ordered By: Sarah Oh on 02-05-2025 Potassium (Unsp spec) [Mass/Vol] 3.4 mmol/L 3.3-5.1 [facility] Potassium measurement (mass/ volume)Ordered By: Babita Rivera on 02-05-2025 Potassium (Unsp spec) [Mass/Vol] 4.5 mmol/L 3.3-5.1 [facility] Protein Test strip Ql (U)Ord ered By: Babita Rivera on 02-05-2025 Protein Ql (U) 30 mg/dl High Negative [facility] RBC Auto (Bld) [#/Vol]Ordere d By: Sarah Oh on 02-05-2025 RBC (Bld) [#/Vol] 4.29 10*6/uL Low 4.6-6.2 [facility] RBC Auto (Bld) [#/Vol]Ordere d By: Babita Rivera on 02-05-2025 RBC (Bld) [#/Vol] 5.13 10*6/uL 4.6-6.2 [facility] Serum creatinine measurement (mass/volume)Ordered By: Sarah Oh on 02-05-2025 Creatinine [Mass/Vol] 0.51 mg/dL Low 0.70-1.20 [facility] Serum creatinine measurement (mass/volume)Ordered By: Babita Rivera on 02-05-2025 Creatinine [Mass/Vol] 0.97 mg/dL 0.70-1.20 [facility] Serum glucose measurement (m ass/volume)Ordered By: Sarah Oh on 02-05-2025 Glucose [Mass/Vol] 170 mg/dL High 70-99 [facility] Serum glucose measurement (m ass/volume)Ordered By: Babita Rivera on 02-05-2025 Glucose [Mass/Vol] 736 mg/dL High 70-99 [facility] Comment on above: Critical Result(s) C alled at: 02/05/2025-03:34 by: Koko Oh to Casimiro Cast. Results read back by same. Serum or plasma calcium koby urement (mass/volume)Ordered By: Sarah Oh on 02-05-2025 Calcium [Mass/Vol] 7.7 mg/dL 7.6-11.0 [facility] Serum or plasma calcium koby urement (mass/volume)Ordered By: Remus Ungur on 02-05-2025 Calcium [Mass/Vol] 10.0 mg/dL 7.6-11.0 [facility] Serum or plasma urea nitroge n measurement (mass/volume)Ordered By: Sarah Oh on 02-05-2025 Urea nitrogen [Mass/Vol] 10 mg/dL - [facility] Serum or plasma urea nitroge n measurement (mass/volume)Ordered By: Remus Ungur on 02-05-2025 Urea nitrogen [Mass/Vol] 19 mg/dL - [facility] Sodium levelOrdered By: Edwin Oh on 02-05-2025 Sodium [Moles/Vol] 137 mmol/L 133-145 [facility] Sodium levelOrdered By: Lupeu s Miguel on 02-05-2025 Sodium [Moles/Vol] 128 mmol/L Low 133-145 [facility] Squamous epithelial cells de tection in urine sediment by light microscopyOrdered By: Remus Miguel on 02-05-2025 Epithelial cells.squamous LM Ql (Urine sed) 0 SEEN /hpf 0-5 [facility] Urinalysis, Completeon 02-05 KETONE UR 150 mg/dl Abnormal Negative [facility] Comment on above: Order Comment: CLEAN CATCH Result Comment: CRIT ICAL VALUE *H CRITICAL VALUE CALLED TO JSOEOFF 02/05/25 0443 Serafin Bell. RESULTS READ BACK BY SAME. Performed By: #### L 100.0100 #### [facility] [address] [place], [place], [id number] RBC 0-5 SEEN Normal 0-5 [facility] Comment on above: Order Comment: CLEAN CATCH Performed By: #### L 100.0100 #### [facility] [address] [place], [place], [id number] BILIRUBIN URINE Negative Normal Negative [facility] Comment on above: Order Comment: CLEAN CATCH Performed By: #### L 100.0100 #### [facility] [address] [place], [address] GLUCOSE, UR 1000 mg/dl Abnormal Normal [facility] Comment on above: Order Comment: CLEAN CATCH Performed By: #### L 100.0100 #### [facility] [address] [place], [address] LEUK ESTERASE Negative Normal Negative [facility] Comment on above: Order Comment: CLEAN CATCH Performed By: #### L 100.0100 #### [facility] [address] [place], [address] OCCULT BLOOD-UR 25 /ul Abnormal Negative [facility] Comment on above: Order Comment: CLEAN CATCH Performed By: #### L 100.0100 #### [facility] [address] [place], [address] pH UR 6.0 Normal 5.0 - 8.0 [facility] Comment on above: Order Comment: CLEAN CATCH Performed By: #### L 100.0100 #### [facility] [address] [place], [address] PROT DIPSTX 30 mg/dl Abnormal Negative [facility] Comment on above: Order Comment: CLEAN CATCH Performed By: #### L 100.0100 #### [facility] [address] [place], [address] SP.GR. DIPSTX 1.010 Normal 1.002-1.03 0 [facility] Comment on above: Order Comment: CLEAN CATCH Performed By: #### L 100.0100 #### [facility] [address] [place], [address] UROBILI Normal Normal Normal [facility] Comment on above: Order Comment: CLEAN CATCH Performed By: #### L 100.0100 #### [facility] [address] [place], [address] BACTERIA 0 SEEN Normal None Seen [facility] Comment on above: Order Comment: CLEAN CATCH Performed By: #### L 100.0100 #### [facility] [address] [place], [address] EPI,SQUAMOUS 0 SEEN Normal 0-5 [facility] Comment on above: Order Comment: CLEAN CATCH Performed By: #### L 100.0100 #### [facility] [address] [place], [address] Mucus Ql (Urine sed) 0 SEEN Normal [facility] Comment on above: Order Comment: CLEAN CATCH Performed By: #### L 100.0100 #### [facility] [address] [place], [address] WBC 0 SEEN Normal 0-5 [facility] Comment on above: Order Comment: CLEAN CATCH Performed By: #### L 100.0100 #### [facility] [address] [place], [address] Urine clarityOrdered By: Rem us Miguel on 02-05-2025 Clarity (U) Clear Normal Clear [facility] Comment on above: Order Comment: CLEAN CATCH Performed By: #### L 100.0100 #### [facility] [address] [place], [address] Urine color determinationOrd ered By: Remus Rivera on 02-05-2025 Color (U) Straw Normal Yellow [facility] Comment on above: Order Comment: CLEAN CATCH Performed By: #### L 100.0100 #### [facility] [address] [place], [address] Urine glucose detectionOrder ed By: Remus Miguel on 02-05-2025 Glucose Ql (U) 1000 mg/dl High Normal [facility] Urine leukocyte esterase det ection by dipstickOrdered By: Remus Miguel on 02-05-2025 Leukocyte esterase Test strip Ql (U) Negative Negative [facility] Urine nitrite test by dipsti ckOrdered By: Remus Miguel on 02-05-2025 Nitrite Ql (U) Negative Normal Negative [facility] Comment on above: Order Comment: CLEAN CATCH Performed By: #### L 100.0100 #### [facility] [address] [place], [address] Urine pHOrdered By: Babita weirr on 02-05-2025 pH (U) 6.0 [pH] 5.0 - 8.0 [facility] Urine sediment bacteria coun t by microscopy (number/high power field)Ordered By: Babita Rivera on 02-05-2025 Bacteria LM.HPF (Urine sed) [#/Area] 0 /[HPF] None Seen [facility] Urine specific gravity measu rementOrdered By: Babita Rivera on 02-05-2025 Specific gravity (U) [Rel density] 1.010 1.002-1.03 0 [facility] Urine urobilinogen measureme ntOrdered By: Babita Rivera on 02-05-2025 Urobilinogen Ql (U) Normal mg/dl Normal [facility] White blood cell (WBC) count Ordered By: Sarah Oh on 02-05-2025 WBC (Bld) [#/Vol] 13.1 10*3/uL High 4.4-11.0 [facility] White blood cell (WBC) count Ordered By: Babita Rivera on 02-05-2025 WBC (Bld) [#/Vol] 13.0 10*3/uL High 4.4-11.0 [facility] White blood cell countOrdere d By: Babita Rivera on 02-05-2025 White blood cell count 0 SEEN /hpf 0-5 [facility] 12 Lead EKGon 01-26-[address] [facility] Services [address] [place] [address] 12 Lead EKG 01/26/25 1141 MR#: [id number] Acct: [id number] Name: UNA COSBY Rep #: [id number] : 1995 29 From: Doyle Morales MD [...] enlargement Borderline ECG Confirmed by Doyle Morales ([id number]), web editor COREY MICHAEL ([id number]) on 01/30/2025 12:47:37 PM Referred By: Confirmed By: Doyle Morales 01/30/25 1247 Date Doyle Morales MD CC: Dr. Keisha Handy, DO; No Primary Care Physician Signed Normal [facility] Absolute lymphocyte countOrd ered By: Beverly Ca on 01-26-2025 Lymphocytes Auto (Unsp spec) [#/Vol] 3.02 10*3/uL 0.83-4.51 [facility] Absolute neutrophil countOrd ered By: Beverly Ca on 01-26-2025 Neutrophils (Bld) [#/Vol] 6.1 10*3/uL 2.0-7.7 [facility] Amphetamine detection with 1 000 ng/mL as cutoffOrdered By: Beverly Ca on 01-26-2025 Amphetamines Screen method >1000 ng/mL Ql (U) Negative < 200 ng/mL [facility] Anion gap in Serum or Plasma Ordered By: Beverly Ca on 01-26-2025 Anion gap [Moles/Vol] 13 mmol/L - [facility] Automated lymphocyte count a s percentage of total leukocytesOrdered By: Beverly Ca on 01-26-2025 Lymphocytes/100 WBC Auto (Unsp spec) 28.9 % [facility] BUN/creatinine ratioOrdered By: Beverly Ca on 01-26-2025 Urea nitrogen/Creatinine [Mass ratio] 28.2 mg/mg High 05-28 [facility] Basic Metabolic Profile (BMP )on 01-26-2025 BUN/CRE 28.2 RATIO [facility] 05-28 [facility] Comment on above: Performed By: #### L 100.0100, L500.2500 #### [facility] [address] [place], [address] Calcium [Mass/Vol] 8.7 mg/dL Normal 7.6-11.0 [facility] Comment on above: Performed By: #### L 100.0100, L500.2500 #### [facility] [address] [place], [address] Chloride [Moles/Vol] 98 mmol/L Normal 98-108 [facility] Comment on above: Performed By: #### L 100.0100, L500.2500 #### [facility] [address] [place], [address] CO2 [Moles/Vol] 22.8 mmol/L Normal 21.0-32.0 [facility] Comment on above: Performed By: #### L 100.0100, L500.2500 #### [facility] [address] [place], [address] Creatinine [Mass/Vol] 0.65 mg/dL Low 0.70-1.20 [facility] Comment on above: Performed By: #### L 100.0100, L500.2500 #### [facility] [address] [place], [address] ECRCL 150.26 ml/min Normal 50-250 [facility] Comment on above: Performed By: #### L 100.0100, L500.2500 #### [facility] [address] [place], [address] GAP 13 Normal 5-15 [facility] Comment on above: Performed By: #### L 100.0100, L500.2500 #### [facility] [address] [place], [address] GFR/1.73 sq M.predicted among non-blacks MDRD (S/P/Bld) [Vol rate/Area] 132 mL/min/{1.73_m2} Normal >60 [facility] Comment on above: Result Comment: mL/m in/1.73m2 CKD-EPI Creatinine Equation (2020) Performed By: #### L 100.0100, L500.2500 #### [facility] [address] [place], [address] Glucose [Mass/Vol] 484 mg/dL Invalid Interpretation Code 70-99 [facility] Comment on above: Result Comment: Crit ical Result(s) Called at: 01/26/2025-12:56 by: Koko Oh to Ge Munden.??Results read back by same. Performed By: #### L 100.0100, L500.2500 #### [facility] [address] [place], [address] Potassium [Moles/Vol] 4.3 mmol/L Normal 3.3-5.1 [facility] Comment on above: Performed By: #### L 100.0100, L500.2500 #### [facility] [address] [place], [address] Sodium [Moles/Vol] 133 mmol/L Normal 133-145 [facility] Comment on above: Performed By: #### L 100.0100, L500.2500 #### [facility] [address] [place], [address] Urea nitrogen [Mass/Vol] 18 mg/dL Normal 4-19 [facility] Comment on above: Performed By: #### L 100.0100, L500.2500 #### [facility] [address] [place], [address] Basophil percentageOrdered B y: Beverly Ca on 01-26-2025 Basophils/100 WBC (Bld) 0.6 % 0-1 [facility] Bedside Glucoseon 01-26-2025 FINGERSTICK GLU 189 mg/dL High 74-106 [facility] Comment on above: Result Comment: TEJAL MATTA OF PATIENT CARE PER NURSING PROTOCOL Performed By: #### L 501.080 ####[facility] [address] [place], [address] FINGERSTICK GLU 290 mg/dL High 74-106 [facility] Comment on above: Result Comment: TEJAL GEMENT OF PATIENT CARE PER NURSING PROTOCOL Performed By: #### L 400.0001 #### [facility] [address] [place], [address] FINGERSTICK GLU 475 mg/dL Invalid Interpretation Code 74-106 [facility] Comment on above: Result Comment: Dr Erica egan Followed MANAGEMENT OF PATIENT CARE PER NURSING PROTOCOL Performed By: #### L 400.0001 #### [facility] [address] [place], [address] FINGERSTICK GLU 427 mg/dL High -106 [facility] Comment on above: Result Comment: TEJAL GEMENT OF PATIENT CARE PER NURSING PROTOCOL Performed By: #### L 501.6901 #### [facility] [address] [place], [address] Beta-Hydroxbytyrateon 2024 BETA-HYDROXYBUT 1.1 mmol/L High 0.0-0.3 [facility] Comment on above: Performed By: #### L 500.2500 #### [facility] [address] [place], [address] Beta-hydroxybutyrateOrdered By: Beverly Ca on 01-26-2025 Beta hydroxybutyrate [Mass/Vol] 1.1 mmol/L High 0.0-0.3 [facility] CBC W/Diff, Automatedon 01-08 Absolute Lymph 3.02 X10 3/uL Normal 0.83-4.51 [facility] Comment on above: Performed By: #### L 100.0100, L500.2500 #### [facility] [address] [place], [address] Absolute Neut 6.1 X10 3/uL Normal 2.0-7.7 [facility] Comment on above: Performed By: #### L 100.0100, L500.2500 #### [facility] [address] [place], [address] Basophils/100 WBC (Bld) 0.6 % Normal 0-1 [facility] Comment on above: Performed By: #### L 100.0100, L500.2500 #### [facility] [address] [place], [address] Eosinophils/100 WBC (Bld) 5.1 % High 0-5 [facility] Comment on above: Performed By: #### L 100.0100, L500.2500 #### [facility] [address] [place], [address] Erythrocyte distribution width (RBC) [Ratio] 15.8 % High 11.6-14.6 [facility] Comment on above: Performed By: #### L 100.0100, L500.2500 #### [facility] [address] [place], [address] Hematocrit (Bld) [Volume fraction] 38.7 % Low 40-54 [facility] Comment on above: Performed By: #### L 100.0100, L500.2500 #### [facility] [address] [place], [address] Hemoglobin (Bld) [Mass/Vol] 12.4 g/dL Low 13.0-16.5 [facility] Comment on above: Performed By: #### L 100.0100, L500.2500 #### [facility] [address] [place], [address] IG% 0.300 Normal 0.0-0.9 [facility] Comment on above: Result Comment: IG% - Immature Granulocytes (promyelocytes, myelocytes and metamyelocytes) > 1% indicates that a LEFT SHIFT is Present. Performed By: #### L 100.0100, L500.2500 #### [facility] [address] [place], [address] Lymphocytes/100 WBC (Bld) 28.9 % Normal 19-41 [facility] Comment on above: Performed By: #### L 100.0100, L500.2500 #### [facility] [address] [place], [address] MCH (RBC) [Entitic mass] 24.1 pg Low 27.0-32.0 [facility] Comment on above: Performed By: #### L 100.0100, L500.2500 #### [facility] [address] [place], [address] MCHC (RBC) [Mass/Vol] 32.0 g/dL Normal 32-36 [facility] Comment on above: Performed By: #### L 100.0100, L500.2500 #### [facility] [address] [place], [address] MCV (RBC) [Entitic vol] 75.1 fL Low 80-94 [facility] Comment on above: Performed By: #### L 100.0100, L500.2500 #### [facility] [address] [place], [address] Monocytes/100 WBC (Bld) 6.8 % Normal 0-10 [facility] Comment on above: Performed By: #### L 100.0100, L500.2500 #### [facility] [address] [place], [address] Neutrophils/100 WBC (Bld) 58.3 % Normal 47-70 [facility] Comment on above: Performed By: #### L 100.0100, L500.2500 #### [facility] [address] [place], [address] Nucleated RBC (Bld) [#/Vol] 0 10*3/uL Normal 0-5 [facility] Comment on above: Performed By: #### L 100.0100, L500.2500 #### [facility] [address] [place], [address] Platelet mean volume (Bld) [Entitic vol] 10.8 fL Normal 6.2-12.0 [facility] Comment on above: Performed By: #### L 100.0100, L500.2500 #### [facility] [address] [place], [address] Platelets (Bld) [#/Vol] 328 10*3/uL Normal 150-450 [facility] Comment on above: Performed By: #### L 100.0100, L500.2500 #### [facility] [address] [place], [address] RBC (Bld) [#/Vol] 5.15 10*6/uL Normal 4.6-6.2 [facility] Comment on above: Performed By: #### L 100.0100, L500.2500 #### [facility] [address] [place], [address] RDW SD 42.6 fl Normal 35.1-43.9 [facility] Comment on above: Performed By: #### L 100.0100, L500.2500 #### [facility] [address] [place], [address] WBC (Bld) [#/Vol] 10.4 10*3/uL Normal 4.4-11.0 [facility] Comment on above: Performed By: #### L 100.0100, L500.2500 #### [facility] [address] [place], [address] CO2 (BldV) [Moles/Vol]Ordere d By: Keisha Handy on 01-26-2025 CO2 [Moles/Vol] 29 mmol/L 23-33 [facility] Carbon dioxide, total [Moles /volume] in Central venous bloodOrdered By: Beverly Ca on 01-26-2025 CO2 [Moles/Vol] 22.8 mmol/L 21.0-32.0 [facility] Chest PA and Lateralon 01-[address] L[address] [facility] Imaging Services [address] [place] [address] Chest PA and Lateral MR#: [id number] Acct: [id number] Name: UNA COSBY Rep #: [id number] : 1995 M 29 From: David stearns MD PCP: Care Physician,No Primary Status: REG ER Study: Chest PA and Lateral Date of Exam: 01/26/25 Exam# [id number] Ordering Dr: Beverly Ca PROCEDURE: CHEST PA AND LATERAL 01/26/2025 REASON FOR EXAM: CHEST PAIN TECHNIQUE: CHEST PA AND LATERAL COMPARISON: Prior study dated October 19, 2024. FINDINGS: Hardware: EKG electrodes. Heart: Unremarkable Mediastinum: The mediastinal contour is unremarkable. Lungs: The lungs are clear. Bones: The bones are unremarkable. RAD/Chest PA and Lateral IMPRESSION: NO ACUTE FINDINGS. Reading Location: [place] [address] CC: ZAIN Baker; No Primary Care Physician Research Editor: Signed Normal [facility] Chloride assayOrdered By: Katarina Ca on 01-26-2025 Chloride [Moles/Vol] 98 mmol/L 98-108 [facility] D-Dimer Quantitative (DVT/PE )on 01-26-2025 D-DIMER QUANT 0.27 FEU/ug/m Normal 0.27-0.49 [facility] Comment on above: Result Comment: NORM AL D-Dimer level (<0.50) indicates no DVT or PE. Performed By: #### L 100.0100, L500.2500 #### [facility] [address] [place], [address] Emergency Department Summary on 01-26-2025 Emergency Department Summary [facility] Medical Records Department [address] [place] [address] Emergency Department Summary 01/26/25 MR#: [id number] Acct: [id number] Name: UNA COSBY Rep #: [id number] : 1995 29 From: Beverly P[place] PCP: [...] use. Denies history of CAD or DVT/PE. [facility] Medical History Learning difficulty due to [...] Respiratory Effo (more content not included)... Normal [facility] Eosinophil percentageOrdered By: Beverly Ca on 01-26-2025 Eosinophils/100 WBC (Bld) 5.1 % High 0-5 [facility] Erythrocyte distribution wid th ratioOrdered By: Beverly Ca on 01-26-2025 Erythrocyte distribution width (RBC) [Ratio] 15.8 % High 11.6-14.6 [facility] Erythrocyte distribution wid th standard deviationOrdered By: Beverly Ca on 01-26-2025 Erythrocyte distribution width (RBC) [Ratio] 42.6 fl 35.1-43.9 [facility] Glomerular filtration rate ( GFR) estimation/1.73 sq m using serum, plasma, or whole bOrdered By: Beverly Ca on 01-26-2025 GFR/1.73 sq M.predicted among non-blacks MDRD (S/P/Bld) [Vol rate/Area] 132 mL/min/{1.73_m2} >60 [facility] Comment on above: mL/min/1.73m2 CKD-EP I Creatinine Equation (2020) [facility] deOrdered By: Keisha Handy on 01-26-2025 Glucose [Mass/Vol] 189 mg/dL High 74-106 [facility] Comment on above: MANAGEMENT OF PATIEN T CARE PER NURSING PROTOCOL Hematocrit Auto (Bld) [Volum e fraction]Ordered By: Beverly Ca on 01-26-2025 Hematocrit (Bld) [Volume fraction] 38.7 % Low 40-54 [facility] [facility] Hem[facility] measurementOrdere d By: Beverly Ca on 01-26-2025 Hemoglobin (Bld) [Mass/Vol] 12.4 g/dL Low 13.0-16.5 [facility] Immature granulocytes/100 WB C Auto (Bld)Ordered By: Beverly Ca on 01-26-2025 Immature granulocytes/100 WBC (Bld) 0.300 % 0.0-0.9 [facility] Comment on above: IG% - Immature Granu locytes (promyelocytes, myelocytes and metamyelocytes) > 1% indicates that a LEFT SHIFT is Present. L501.4021on 01-26-2025 Trop T High Sen 15 ng/L Normal <=22 [facility] Comment on above: Performed By: #### L 501.6901 #### [facility] [address] [place], [address] MCV (mean corpuscular volume ) determinationOrdered By: Beverly Ca on 01-26-2025 MCV (RBC) [Entitic vol] 75.1 fL Low 80-94 [facility] Mean corpuscular hemoglobin (MCH) determinationOrdered By: Beverly Ca on 01-26-2025 MCH (RBC) [Entitic mass] 24.1 pg Low 27.0-32.0 [facility] Mean corpuscular hemoglobin concentration (MCHC) determinationOrdered By: Beverly Ca on 01-26-2025 MCHC (RBC) [Mass/Vol] 32.0 g/dL 32-36 [facility] Mean platelet volume determi nationOrdered By: Beverly Ca on 01-26-2025 Platelet mean volume (Bld) [Entitic vol] 10.8 fL 6.2-12.0 [facility] Monocyte percentageOrdered B y: Beverly Ca on 01-26-2025 Monocytes/100 WBC (Bld) 6.8 % 0-10 [facility] Neutrophil percentageOrdered By: Beverly Ca on 01-26-2025 Neutrophils/100 WBC (Bld) 58.3 % 47-70 [facility] No Panel InformationOrdered By: Beverly Ca on 01-26-2025 Urine Buprenorphine Qualitative Negative < 200 ng/mL [facility] Urine Oxycodone Screen Negative < 100 ng/mL [facility] No Panel InformationOrdered By: Keisha Handy on 01-26-2025 Blood Gas Sample Site Not entered [facility] Blood Gas Specimen Type JAIDEN [facility] Oxygen Delivery Device Not entered [facility] Nucleated red blood cell per centageOrdered By: Beverly Ca on 01-26-2025 Nucleated RBC/100 WBC (Bld) [Ratio] 0 % 0-5 [facility] Platelet countOrdered By: Katarina Ca on 01-26-2025 Platelets (Bld) [#/Vol] 328 10*3/uL 150-450 [facility] Potassium measurement (mass/ volume)Ordered By: Beverly Ca on 01-26-2025 Potassium (Unsp spec) [Mass/Vol] 4.3 mmol/L 3.3-5.1 [facility] Quantitative urine opiates m easurementOrdered By: Beverly Ca on 01-26-2025 Opiates Ql (U) Negative < 300 ng/mL [facility] RBC Auto (Bld) [#/Vol]Ordere d By: Beverly Ca on 01-26-2025 RBC (Bld) [#/Vol] 5.15 10*6/uL 4.6-6.2 [facility] Screening urine fentanyl yaya surementOrdered By: Beverly Ca on 01-26-2025 fentaNYL Screen Ql (U) Negative [facility] Serum creatinine measurement (mass/volume)Ordered By: Beverly Ca on 01-26-2025 Creatinine [Mass/Vol] 0.65 mg/dL Low 0.70-1.20 [facility] Serum glucose measurement (m ass/volume)Ordered By: Beverly Ca on 01-26-2025 Glucose [Mass/Vol] 484 mg/dL High 70-99 [facility] Comment on above: Critical Result(s) C alled at: 01/26/2025-12:56 by: Koko Oh to Ge Long. Results read back by same. Serum or plasma calcium koby urement (mass/volume)Ordered By: Beverly Ca on 01-26-2025 Calcium [Mass/Vol] 8.7 mg/dL 7.6-11.0 [facility] Serum or plasma urea nitroge n measurement (mass/volume)Ordered By: Beverly Ca on 01-26-2025 Urea nitrogen [Mass/Vol] 18 mg/dL 4-19 [facility] Sodium levelOrdered By: Beverly Ca on 01-26-2025 Sodium [Moles/Vol] 133 mmol/L 133-145 [facility] TSH DL <= 0.005 mIU/L QnOrde red By: Beverly Ca on 01-26-2025 TSH Qn 2.430 uIU/mL 0.300-4.20 0 [facility] Thyroid Stim Hormone (TSH)on 01-26-2025 TSH 2.430 uIU/mL Normal 0.300-4.20 0 [facility] Comment on above: Performed By: #### L 100.0100, L500.2500 #### [facility] [address] [place], [place], [id number] Troponin T.cardiac [Mass/vol ume] in Serum or Plasma by High sensitivity methodOrdered By: Beverly Ca on 01-26-2025 Troponin T.cardiac High sensitivity method [Mass/Vol] 15 ng/L <22 [facility] Comment on above: Delta: 8 on 10/19/24 -0024 Urine Drug Screen (VISTA)on 01-26-2025 AMPHETAMINES Negative Normal <1000 ng/mL [facility] Comment on above: Performed By: #### L 100.0100, L500.2500 #### [facility] [address] [place], [address] BARBITIURATES Negative Normal < 200 ng/mL [facility] Comment on above: Performed By: #### L 100.0100, L500.2500 #### [facility] [address] [place], [address] BENZODIAZIPINE Negative Normal < 200 ng/mL [facility] Comment on above: Performed By: #### L 100.0100, L500.2500 #### [facility] [address] [place], [address] BUP Ur Drug Scr Negative Normal < 200 ng/mL [facility] Comment on above: Performed By: #### L 100.0100, L500.2500 #### [facility] [address] [place], [address] COCAINE Negative Normal < 300 ng/mL [facility] Comment on above: Performed By: #### L 100.0100, L500.2500 #### [facility] [address] [place], [address] Fentanyl Negative Normal [facility] Comment on above: Performed By: #### L 100.0100, L500.2500 #### [facility] [address] [place], [address] METHADONE Negative Normal < 300 ng/mL [facility] Comment on above: Performed By: #### L 100.0100, L500.2500 #### [facility] [address] [place], [place], [facility] OPIATES Negative Normal < 300 ng/mL [facility] Comment on above: Performed By: #### L 100.0100, L500.2500 #### [facility] [address] [place], [place], [facility] OXYCODONE Negative Normal < 100 ng/mL [facility] Comment on above: Performed By: #### L 100.0100, L500.2500 #### [facility] [address] [place], [address] PCP Negative Normal < 25 ng/mL [facility] Comment on above: Performed By: #### L 100.0100, L500.2500 #### [facility] [address] [place], [address] THC Negative Normal < 50 ng/mL [facility] Comment on above: Performed By: #### L 100.0100, L500.2500 #### [facility] [address] [place], [address] Urine benzodiazepine levelOr dered By: Beverly Medinaana on 01-26-2025 Benzodiazepines Ql (U) Negative < 200 ng/mL [facility] Urine cocaine levelOrdered B y: Beverly Ca on 01-26-2025 Cocaine Ql (U) Negative < 300 ng/mL [facility] Urine visxj-8-szyygbpyxpazij abinol (THC) measurementOrdered By: Beverly Lanny on 01-26-2025 Cannabinoids Screen Ql (U) Negative < 50 ng/mL [facility] Urine phencyclidine (PCP) de tectionOrdered By: Beverly Lanny on 01-26-2025 Phencyclidine Ql (U) Negative < 25 ng/mL [facility] Venous Blood Gason Blood Gas Type JAIDEN Normal [facility] Comment on above: Performed By: #### L 100.0100, L500.2500 #### [facility] [address] [place], [address] CO2 [Moles/Vol] 29 mmol/L Normal 23-33 [facility] Comment on above: Performed By: #### L 100.0100, L500.2500 #### [facility] [address] [place], [address] HCO3 (Bld) [Moles/Vol] 27 mmol/L High 22-26 [facility] Comment on above: Performed By: #### L 100.0100, L500.2500 #### [facility] [address] [place], [address] O2 Delivery Dev Not entered Normal [facility] Comment on above: Performed By: #### L 100.0100, L500.2500 #### [facility] [address] [place], [address] SITE Not entered Normal [facility] Comment on above: Performed By: #### L 100.0100, L500.2500 #### [facility] [address] [place], [address] VBG BE 2 mmol/L Normal -1.0-3.5 [facility] Comment on above: Performed By: #### L 100.0100, L500.2500 #### [facility] [address] [place], [address] VBG pCO2 45.0 mmHg Normal 41-51 [facility] Comment on above: Performed By: #### L 100.0100, L500.2500 #### [facility] [address] [place], [address] VBG pH 7.39 Normal 7.32-7.42 [facility] Comment on above: Performed By: #### L 100.0100, L500.2500 #### [facility] [address] [place], [address] VBG PO2 51 mmHg High 25-40 [facility] Comment on above: Performed By: #### L 100.0100, L500.2500 #### [facility] [address] [place], [address] VBG SO2 85 High 50-70 [facility] Comment on above: Performed By: #### L 100.0100, L500.2500 #### [facility] [address] [place], [address] Venous blood base excess yaya surementOrdered By: Keisha Handy on 01-26-2025 Base excess Calc (BldV) [Moles/Vol] 2 mmol/L -1.0-3.5 [facility] Venous blood bicarbonate yaya surementOrdered By: Keisha Handy on 01-26-2025 HCO3 (Bld) [Moles/Vol] 27 mmol/L High 22-26 [facility] Venous blood oxygen saturati on measurementOrdered By: Keisha Handy on 01-26-2025 Oxygen saturation in Blood 85 % High 50-70 [facility] Venous blood pH measurementO rdered By: Keisha Handy on 01-26-2025 pH (BldV) 7.39 [pH] 7.32-7.42 [facility] Venous blood partial pressur e of carbon dioxide measurementOrdered By: Keisha Handy on 01-26-2025 CO2 (BldV) [Partial pressure] 45.0 mm[Hg] 41-51 [facility] Venous blood partial pressur e of oxygen measurementOrdered By: Keisha Handy on 01-26-2025 Oxygen (BldV) [Partial pressure] 51 mm[Hg] High 25-40 [facility] White blood cell (WBC) count Ordered By: Beverly Ca on 01-26-2025 WBC (Bld) [#/Vol] 10.4 10*3/uL 4.4-11.0 [facility] Anion gap in Serum or Plasma Ordered By: Juan Rivas on 12-14-2024 Anion gap [Moles/Vol] 9 mmol/L - [facility] BUN/creatinine ratioOrdered By: Juan Rivas on 12-14-2024 Urea nitrogen/Creatinine [Mass ratio] 16.2 mg/mg 05-28 [facility] Basic Metabolic Profile (BMP )on 12-14-2024 BUN/CRE 16.2 RATIO Normal 05-28 [facility] Comment on above: Performed By: #### L 500.2500 ####[facility] [address] [place], [address] Calcium [Mass/Vol] 7.8 mg/dL Normal 7.6-11.0 [facility] Comment on above: Performed By: #### L 500.2500 ####[facility] [address] [place], [address] Chloride [Moles/Vol] 103 mmol/L Normal 98-108 [facility] Comment on above: Performed By: #### L 500.2500 ####[facility] [address] [place], [address] CO2 [Moles/Vol] 24.0 mmol/L Normal 21.0-32.0 [facility] Comment on above: Performed By: #### L 500.2500 ####[facility] [address] [place], [address] Creatinine [Mass/Vol] 0.64 mg/dL Low 0.70-1.20 [facility] Comment on above: Performed By: #### L 500.2500 ####[facility] [address] [place], [address] ECRCL 126.32 ml/min Normal 50-250 [facility] Comment on above: Performed By: #### L 500.2500 ####[facility] [address] [place], [address] GAP 9 Normal 5-15 [facility] Comment on above: Performed By: #### L 500.2500 ####[facility] [address] [place], [address] GFR/1.73 sq M.predicted among non-blacks MDRD (S/P/Bld) [Vol rate/Area] 133 mL/min/{1.73_m2} Normal >60 [facility] Comment on above: Result Comment: mL/m in/1.73m2 CKD-EPI Creatinine Equation (2020) Performed By: #### L 500.2500 ####[facility] [address] [place], [address] Glucose [Mass/Vol] 275 mg/dL High 70-99 [facility] Comment on above: Performed By: #### L 500.2500 ####[facility] [address] [place], [address] Potassium [Moles/Vol] 3.6 mmol/L Normal 3.3-5.1 [facility] Comment on above: Performed By: #### L 500.2500 ####[facility] [address] [place], [address] Sodium [Moles/Vol] 136 mmol/L Normal 133-145 [facility] Comment on above: Performed By: #### L 500.2500 ####[facility] [address] [place], [address] Urea nitrogen [Mass/Vol] 10 mg/dL Normal 4-19 [facility] Comment on above: Performed By: #### L 500.2500 ####[facility] [address] [place], [address] Bedside Glucoseon 12-14-2024 FINGERSTICK GLU 286 mg/dL High 74-106 [facility] Comment on above: Result Comment: TEJAL GEMENT OF PATIENT CARE PER NURSING PROTOCOL Performed By: #### L 501.080 ####[facility] [address] [place], [address] FINGERSTICK GLU 262 mg/dL High 74-106 [facility] Comment on above: Result Comment: TEJAL GEMENT OF PATIENT CARE PER NURSING PROTOCOL Performed By: #### L 501.6901 #### [facility] [address] [place], [address] FINGERSTICK GLU 337 mg/dL High 74-106 [facility] Comment on above: Result Comment: TEJAL GEMENT OF PATIENT CARE PER NURSING PROTOCOL Performed By: #### L 501.6901 #### [facility] [address] [place], [address] FINGERSTICK GLU 433 mg/dL High 74-106 [facility] Comment on above: Result Comment: TEJAL GEMENT OF PATIENT CARE PER NURSING PROTOCOL Performed By: #### L 100.0100, L500.2500 #### [facility] [address] [place], [address] Carbon dioxide, total [Moles /volume] in Central venous bloodOrdered By: Juan Rivas on 12-14-2024 CO2 [Moles/Vol] 24.0 mmol/L 21.0-32.0 [facility] Chloride assayOrdered By: Cesar Rivas on 12-14-2024 Chloride [Moles/Vol] 103 mmol/L 98-108 [facility] Glomerular filtration rate ( GFR) estimation/1.73 sq m using serum, plasma, or whole bOrdered By: Juan Rivas on 12-14-2024 GFR/1.73 sq M.predicted among non-blacks MDRD (S/P/Bld) [Vol rate/Area] 133 mL/min/{1.73_m2} >60 [facility] Comment on above: mL/min/1.73m2 CKD-EP I Creatinine Equation (2020) Gl[facility] at [facility] deOrdered By: Juan Rivas on 12-14-2024 Glucose [Mass/Vol] 286 mg/dL High 74-106 [facility] Comment on above: MANAGEMENT OF PATIEN T CARE PER NURSING PROTOCOL Potassium measurement (mass/ volume)Ordered By: Juan Rivas on 12-14-2024 Potassium (Unsp spec) [Mass/Vol] 3.6 mmol/L 3.3-5.1 [facility] Serum creatinine measurement (mass/volume)Ordered By: Juan Rivas on 12-14-2024 Creatinine [Mass/Vol] 0.64 mg/dL Low 0.70-1.20 [facility] Serum glucose measurement (m ass/volume)Ordered By: Juan Rivas on 12-14-2024 Glucose [Mass/Vol] 275 mg/dL High 70-99 [facility] Serum or plasma calcium koby urement (mass/volume)Ordered By: Juan Rivas on 12-14-2024 Calcium [Mass/Vol] 7.8 mg/dL 7.6-11.0 [facility] Serum or plasma urea nitroge n measurement (mass/volume)Ordered By: Juan Rivas on 12-14-2024 Urea nitrogen [Mass/Vol] 10 mg/dL 4-19 [facility] Sodium levelOrdered By: Sav Rivas on 12-14-2024 Sodium [Moles/Vol] 136 mmol/L 133-145 [facility] 12 Lead EKGon 12-13-[address] [facility] [address] [place] [address] 12 Lead EKG 12/13/24 2230 MR#: [id number] Acct: [id number] Name: UNA COSBY Rep #: [id number] : 1995 From: Doyle Morales MD Attending [...] Otherwise normal ECG Confirmed by Doyle Morales ([id number]), web editor DOMINIC KEENE ([id number]) on 12/15/2024 12:14:41 PM Referred By: Confirmed By: Doyle Morales 12/15/24 1214 Date Doyle Morales MD CC: Dr. Juan Rivas MD; No Primary Care Physician Signed Normal [facility] Absolute lymphocyte countOrd ered By: Juan Rivas on 12-13-2024 Lymphocytes Auto (Unsp spec) [#/Vol] 3.83 10*3/uL 0.83-4.51 [facility] Absolute neutrophil countOrd ered By: Juan Rivas on 12-13-2024 Neutrophils (Bld) [#/Vol] 6.1 10*3/uL 2.0-7.7 [facility] Automated lymphocyte count a s percentage of total leukocytesOrdered By: Juan Rivas on 12-13-2024 Lymphocytes/100 WBC Auto (Unsp spec) 33.9 % 19- [facility] Basic Metabolic Profile (BMP )on 12-13-2024 BUN/CRE 16.3 RATIO Normal 10- [facility] Comment on above: Performed By: #### L 501.6901, L500.2500 ####[facility] [address] [place], [place], [address] Calcium [Mass/Vol] 9.0 mg/dL Normal 7.6-11.0 [facility] Comment on above: Performed By: #### L 501.6901, L500.2500 ####[facility] [address] [place], [address] Chloride [Moles/Vol] 90 mmol/L Low 98-108 [facility] Comment on above: Performed By: #### L 501.6901, L500.2500 ####[facility] [address] [place], [address] CO2 [Moles/Vol] 27.2 mmol/L Normal 21.0-32.0 [facility] Comment on above: Performed By: #### L 501.6901, L500.2500 ####[facility] [address] [place], [address] Creatinine [Mass/Vol] 0.84 mg/dL Normal 0.70-1.20 [facility] Comment on above: Performed By: #### L 501.6901, L500.2500 ####[facility] [address] [place], [address] ECRCL 96.24 ml/min Normal 50-250 [facility] Comment on above: Performed By: #### L 501.6901, L500.2500 ####[facility] [address] [place], [address] GAP 12 Normal 5-15 [facility] Comment on above: Performed By: #### L 501.6901, L500.2500 ####[facility] [address] [place], [address] GFR/1.73 sq M.predicted among non-blacks MDRD (S/P/Bld) [Vol rate/Area] 123 mL/min/{1.73_m2} Normal >60 [facility] Comment on above: Result Comment: mL/m in/1.73m2 CKD-EPI Creatinine Equation (2020) Performed By: #### L 501.6901, L500.2500 ####[facility] [address] [place], [address] Glucose [Mass/Vol] 520 mg/dL Invalid Interpretation Code 70-99 [facility] Comment on above: Result Comment: Crit ical Result(s) Called at: 2248 by: WILLIAM HERRERA TO GE TENNENT??Results read back by same. Performed By: #### L 501.6901, L500.2500 ####[facility] [address] [place], [address] Potassium [Moles/Vol] 5.3 mmol/L High 3.3-5.1 [facility] Comment on above: Performed By: #### L 501.6901, L500.2500 ####[facility] [address] [place], [address] Sodium [Moles/Vol] 129 mmol/L Low 133-145 [facility] Comment on above: Performed By: #### L 501.6901, L500.2500 ####[facility] [address] [place], [address] Urea nitrogen [Mass/Vol] 14 mg/dL Normal 4-19 [facility] Comment on above: Performed By: #### L 501.6901, L500.2500 ####[facility] [address] [place], [address] Basophil percentageOrdered B y: Juan Rivas on 12-13-2024 Basophils/100 WBC (Bld) 0.6 % 0-1 [facility] Bedside Glucoseon 12-13-2024 FINGERSTICK GLU 490 mg/dL Invalid Interpretation Code 74-106 [facility] Comment on above: Result Comment: Dr Erica egan Followed MANAGEMENT OF PATIENT CARE PER NURSING PROTOCOL Performed By: #### L 100.0100, L500.2500 #### [facility] [address] [place], [address] Beta-Hydroxbytyrateon 2024 BETA-HYDROXYBUT 1.7 mmol/L Normal 0.0-0.3 [facility] Comment on above: Performed By: #### L 501.6901, L500.2500 ####[facility] [address] [place], [address] Beta-hydroxybutyrateOrdered By: Juan Rivas on 12-13-2024 Beta hydroxybutyrate [Mass/Vol] 1.7 mmol/L 0.0-0.3 [facility] Bilirubin Test strip Ql (U)O rdered By: Juan Rivas on 12-13-2024 Bilirubin Ql (U) Negative Negative [facility] CBC W/Diff, Automatedon Absolute Lymph 3.83 X10 3/uL Normal 0.83-4.51 [facility] Comment on above: Performed By: #### L 501.6901 #### [facility] [address] [place], [address] Absolute Neut 6.1 X10 3/uL Normal 2.0-7.7 [facility] Comment on above: Performed By: #### L 501.6901 #### [facility] [address] [place], [address] Basophils/100 WBC (Bld) 0.6 % Normal 0-1 [facility] Comment on above: Performed By: #### L 501.6901 #### [facility] [address] [place], [address] Eosinophils/100 WBC (Bld) 3.3 % Normal 0-5 [facility] Comment on above: Performed By: #### L 501.6901 #### [facility] [address] [place], [address] Erythrocyte distribution width (RBC) [Ratio] 15.2 % High 11.6-14.6 [facility] Comment on above: Performed By: #### L 501.6901 #### [facility] [address] [place], [address] Hematocrit (Bld) [Volume fraction] 43.1 % Normal 40-54 [facility] Comment on above: Performed By: #### L 501.6901 #### [facility] [address] [place], [address] Hemoglobin (Bld) [Mass/Vol] 13.9 g/dL Normal 13.0-16.5 [facility] Comment on above: Performed By: #### L 501.6901 #### [facility] [address] [place], [address] IG% 0.300 Normal 0.0-0.9 [facility] Comment on above: Result Comment: IG% - Immature Granulocytes (promyelocytes, myelocytes and metamyelocytes) > 1% indicates that a LEFT SHIFT is Present. Performed By: #### L 501.6901 #### [facility] [address] [place], [address] Lymphocytes/100 WBC (Bld) 33.9 % Normal 19-41 [facility] Comment on above: Performed By: #### L 501.6901 #### [facility] [address] [place], [address] MCH (RBC) [Entitic mass] 23.4 pg Low 27.0-32.0 [facility] Comment on above: Performed By: #### L 501.6901 #### [facility] [address] [place], [address] MCHC (RBC) [Mass/Vol] 32.3 g/dL Normal 32-36 [facility] Comment on above: Performed By: #### L 501.6901 #### [facility] [address] [place], [address] MCV (RBC) [Entitic vol] 72.7 fL Low 80-94 [facility] Comment on above: Performed By: #### L 501.6901 #### [facility] [address] [place], [address] Monocytes/100 WBC (Bld) 8.1 % Normal 0-10 [facility] Comment on above: Performed By: #### L 501.6901 #### [facility] [address] [place], [address] Neutrophils/100 WBC (Bld) 53.8 % Normal 47-70 [facility] Comment on above: Performed By: #### L 501.6901 #### [facility] [address] [place], [address] Nucleated RBC (Bld) [#/Vol] 0 10*3/uL Normal 0-5 [facility] Comment on above: Performed By: #### L 501.6901 #### [facility] [address] [place], [address] Platelet mean volume (Bld) [Entitic vol] 10.5 fL Normal 6.2-12.0 [facility] Comment on above: Performed By: #### L 501.6901 #### [facility] [facility] [address] [place], [address] Platelets (Bld) [#/Vol] 449 10*3/uL Normal 150-450 [facility] Comment on above: Performed By: #### L 501.6901 #### [facility] [address] [place], [address] RBC (Bld) [#/Vol] 5.93 10*6/uL Normal 4.6-6.2 [facility] Comment on above: Performed By: #### L 501.6901 #### [facility] [address] [place], [address] RDW SD 38.6 fl Normal 35.1-43.9 [facility] Comment on above: Performed By: #### L 501.6901 #### [facility] [address] [place], [address] WBC (Bld) [#/Vol] 11.3 10*3/uL High 4.4-11.0 [facility] Comment on above: Performed By: #### L 501.6901 #### [facility] [address] [place], [address] CO2 (BldV) [Moles/Vol]Ordere d By: Juan Rivas on 12-13-2024 CO2 [Moles/Vol] 28 mmol/L 23-33 [facility] Emergency Department Summary on 12-13-2024 Emergency Department Summary [facility] Medical Records Department [address] [place] [address] Emergency Department Summary 12/13/24 MR#: [id number] Acct: [id number] Name: UNA COSBY Rep #: [id number] : 1995 29 From: Juan Rivas MD [...] he cannot keep anything down all day. [facility] Medical History Learning difficulty due to [...] 10/19/24 Unknown History mL 31 gauge x / (TRUEplus Insulin) ondansetron 8 mg disintegrating 8 [...] edema o (more content not included)... Normal [facility] Eosinophil percentageOrdered By: Juan Rivas on 12-13-2024 Eosinophils/100 WBC (Bld) 3.3 % 0-5 [facility] Erythrocyte distribution wid th ratioOrdered By: Juan Rivas on 12-13-2024 Erythrocyte distribution width (RBC) [Ratio] 15.2 % High 11.6-14.6 [facility] Erythrocyte distribution wid th standard deviationOrdered By: Juan Rivas on 12-13-2024 Erythrocyte distribution width (RBC) [Ratio] 38.6 fl 35.1-43.9 [facility] Hematocrit Auto (Bld) [Volum e fraction]Ordered By: Juan Rivas on 12-13-2024 Hematocrit (Bld) [Volume fraction] 43.1 % 40-54 [facility] Hemoglobin measurementOrdere d By: Juan Rivas on 12-13-2024 Hemoglobin (Bld) [Mass/Vol] 13.9 g/dL 13.0-16.5 [facility] Immature granulocytes/100 WB C Auto (Bld)Ordered By: Juan Rivas on 12-13-2024 Immature granulocytes/100 WBC (Bld) 0.300 % 0.0-0.9 [facility] Comment on above: IG% - Immature Granu locytes (promyelocytes, myelocytes and metamyelocytes) > 1% indicates that a LEFT SHIFT is Present. Ketones Test strip Ql (U)Ord ered By: Juan Rivas on 12-13-2024 Ketones Ql (U) 5 mg/dl High Negative [facility] MCV (mean corpuscular volume ) determinationOrdered By: Juan Rivas on 12-13-2024 MCV (RBC) [Entitic vol] 72.7 fL Low 80-94 [facility] Mean corpuscular hemoglobin (MCH) determinationOrdered By: Juan Rivas on 12-13-2024 MCH (RBC) [Entitic mass] 23.4 pg Low 27.0-32.0 [facility] Mean corpuscular hemoglobin concentration (MCHC) determinationOrdered By: Juan Rivas on 12-13-2024 MCHC (RBC) [Mass/Vol] 32.3 g/dL 32-36 [facility] Mean platelet volume determi nationOrdered By: Juan Rivas on 12-13-2024 Platelet mean volume (Bld) [Entitic vol] 10.5 fL 6.2-12.0 [facility] Microscopic analysis of urin e for red blood cells (RBC)Ordered By: Juan Rivas on 12-13-2024 Microscopic analysis of urine for red blood cells (RBC) 0 SEEN /hpf 0-5 [facility] Monocyte percentageOrdered B y: Juan Rivas on 12-13-2024 Monocytes/100 WBC (Bld) 8.1 % 0-10 [facility] Mucus LM Ql (Urine sed)Order ed By: Juan Rivas on 12-13-2024 Mucus Ql (Urine sed) 0 SEEN /hpf [facility] Neutrophil percentageOrdered By: Juan Rivas on 12-13-2024 Neutrophils/100 WBC (Bld) 53.8 % 47-70 [facility] Nitrite Test strip Ql (U)Ord ered By: Juan Rivas on 12-13-2024 Nitrite Ql (U) Negative Negative [facility] No Panel InformationOrdered By: Juan Rivas on 12-13-2024 Blood Gas Sample Site Not entered [facility] Blood Gas Specimen Type JAIDEN [facility] Oxygen Delivery Device Not entered [facility] Nucleated red blood cell per centageOrdered By: Juan Rivas on 12-13-2024 Nucleated RBC/100 WBC (Bld) [Ratio] 0 % 0-5 [facility] Platelet countOrdered By: Cesar Rivas on 12-13-2024 Platelets (Bld) [#/Vol] 449 10*3/uL 150-450 [facility] Protein Test strip Ql (U)Ord ered By: Juan Rivas on 12-13-2024 Protein Ql (U) 30 mg/dl High Negative [facility] RBC Auto (Bld) [#/Vol]Ordere d By: Juan Rivas on 12-13-2024 RBC (Bld) [#/Vol] 5.93 10*6/uL 4.6-6.2 [facility] Squamous epithelial cells de tection in urine sediment by light microscopyOrdered By: Juan Rivas on 12-13-2024 Epithelial cells.squamous LM Ql (Urine sed) 0 SEEN /hpf 0-5 [facility] Urinalysis, Completeon 12-13 BILIRUBIN URINE Negative Normal Negative [facility] Comment on above: Order Comment: MANN EDMONDSOR TO SPECIFY Performed By: #### L 400.0001 ####[facility] [address] [place], [address] Clarity (U) Clear Normal Clear [facility] Comment on above: Order Comment: MANN CTOR TO SPECIFY Performed By: #### L 400.0001 ####[facility] [address] [place], [place], [id number] Color (U) Straw Normal Yellow [facility] Comment on above: Order Comment: MANN CTOR TO SPECIFY Performed By: #### L 400.0001 ####[facility] [address] [place], [place], [address] GLUCOSE, UR 1000 mg/dl Abnormal Normal [facility] Comment on above: Order Comment: MANN CTOR TO SPECIFY Performed By: #### L 400.0001 ####[facility] [address] [place], [address] KETONE UR 5 mg/dl Abnormal Negative [facility] Comment on above: Order Comment: MANN CTOR TO SPECIFY Performed By: #### L 400.0001 ####[facility] [address] [place] [address] LEUK ESTERASE Negative Normal Negative [facility] Comment on above: Order Comment: MANN CTOR TO SPECIFY Performed By: #### L 400.0001 ####[facility] [address] [place] [address] Nitrite Ql (U) Negative Normal Negative [facility] Comment on above: Order Comment: AMNN CTOR TO SPECIFY Performed By: #### L 400.0001 ####[facility] [address] [place], [place], [phone] OCCULT BLOOD-UR 25 /ul Abnormal Negative [facility] Comment on above: Order Comment: MANN CTOR TO SPECIFY Performed By: #### L 400.0001 ####[facility] [address] [place], [address] pH UR 7.0 Normal 5.0 - 8.0 [facility] Comment on above: Order Comment: MANN CTOR TO SPECIFY Performed By: #### L 400.0001 ####[facility] [address] [place] [address] PROT DIPSTX 30 mg/dl Abnormal Negative [facility] Comment on above: Order Comment: MANN CTOR TO SPECIFY Performed By: #### L 400.0001 ####[facility] [address] [place], [address] SP.GR. DIPSTX 1.005 Normal 1.002-1.03 0 [facility] Comment on above: Order Comment: MANN CTOR TO SPECIFY Performed By: #### L 400.0001 ####[facility] [address] [place], [address] UROBILI Normal Normal Normal [facility] Comment on above: Order Comment: MANN CTOR TO SPECIFY Performed By: #### L 400.0001 ####[facility] [address] [place], [address] BACTERIA 0 SEEN Normal None Seen [facility] Comment on above: Order Comment: MANN CTOR TO SPECIFY Performed By: #### L 400.0001 ####[facility] [address] [place], [address] EPI,SQUAMOUS 0 SEEN Normal 0-5 [facility] Comment on above: Order Comment: MANN CTOR TO SPECIFY Performed By: #### L 400.0001 ####[facility] [address] [place], [address] Mucus Ql (Urine sed) 0 SEEN Normal [facility] Comment on above: Order Comment: MANN CTOR TO SPECIFY Performed By: #### L 400.0001 ####[facility] [address] [place], [address] RBC 0 SEEN Normal [address] Comment on above: Order Comment: MANN CTOR TO SPECIFY Performed By: #### L 400.0001 ####[facility] [address] [place], [address] WBC 0 SEEN Normal 0-[address] [place] [address] Comment on above: Order Comment: MANN CTOR TO SPECIFY Performed By: #### L 400.0001 ####[facility] [address] [place], [address] Urine clarityOrdered By: Cherie Rivas on 12-13-2024 Clarity (U) Clear Clear [facility] Urine color determinationOrd ered By: Juan Rivas on 12-13-2024 Color (U) Straw Yellow [facility] Urine glucose detectionOrder ed By: Juan Rivas on 12-13-2024 Glucose Ql (U) 1000 mg/dl High Normal [facility] Urine leukocyte esterase det ection by dipstickOrdered By: Juan Rivas on 12-13-2024 Leukocyte esterase Test strip Ql (U) Negative Negative [facility] Urine pHOrdered By: Juan Rivas on 12-13-2024 pH (U) 7.0 [pH] 5.0 - 8.0 [facility] Urine sediment bacteria coun t by microscopy (number/high power field)Ordered By: Juan Rivas on 12-13-2024 Bacteria LM.HPF (Urine sed) [#/Area] 0 /[HPF] None Seen [facility] Urine specific gravity measu rementOrdered By: Juan Rivas on 12-13-2024 Specific gravity (U) [Rel density] 1.005 1.002-1.03 0 [facility] Urine urobilinogen measureme ntOrdered By: Juan Rivas on 12-13-2024 Urobilinogen Ql (U) Normal mg/dl Normal [facility] Venous Blood Gason 5 Blood Gas Type JAIDEN Normal [facility] Comment on above: Performed By: #### L 501.6901 #### [facility] [address] [place], [place], [address] CO2 [Moles/Vol] 28 mmol/L Normal 23-33 [facility] Comment on above: Performed By: #### L 501.6901 #### [facility] [address] [place], [place], [address] FI02 21.0 Normal [facility] Comment on above: Performed By: #### L 501.6901 #### [facility] [address] [place], [place], [address] HCO3 (Bld) [Moles/Vol] 27 mmol/L High 22-26 [facility] Comment on above: Performed By: #### L 501.6905 #### [facility] [address] [place], [place], [address] O2 Delivery Dev Not entered Normal [facility] Comment on above: Performed By: #### L 501.6901 #### [facility] [address] [place], [address] SITE Not entered Normal [facility] Comment on above: Performed By: #### L 501.6901 #### [facility] [address] [place], [address] VBG BE 4 mmol/L High -1.0-3.5 [facility] Comment on above: Performed By: #### L 501.6901 #### [facility] [address] [place], [address] VBG pCO2 34.4 mmHg Low 41-51 [facility] Comment on above: Performed By: #### L 501.6901 #### [facility] [address] [place], [address] VBG pH 7.50 High 7.32-7.42 [facility] Comment on above: Performed By: #### L 501.6901 #### [facility] [address] [place], [address] VBG PO2 76 mmHg High 25-40 [facility] Comment on above: Performed By: #### L 501.6901 #### [facility] [address] [place], [address] VBG SO2 96 High 50-70 [facility] Comment on above: Performed By: #### L 501.6901 #### [facility] [address] [place], [address] Venous blood base excess yaay surementOrdered By: Juan Rivas on 12-13-2024 Base excess Calc (BldV) [Moles/Vol] 4 mmol/L High -1.0-3.5 [facility] Venous blood bicarbonate yaya surementOrdered By: Juan Rivas on 12-13-2024 HCO3 (Bld) [Moles/Vol] 27 mmol/L High 22-26 [facility] Venous blood oxygen saturati on measurementOrdered By: Juan Rivas on 12-13-2024 Oxygen saturation in Blood 96 % High 50-70 [facility] Venous blood pH measurementO rdered By: Juan Rivas on 12-13-2024 pH (BldV) 7.50 [pH] High 7.32-7.42 [facility] Venous blood partial pressur e of carbon dioxide measurementOrdered By: Juan Rivas on 12-13-2024 CO2 (BldV) [Partial pressure] 34.4 mm[Hg] Low 41-51 [facility] Venous blood partial pressur e of oxygen measurementOrdered By: Juan Rivas on 12-13-2024 Oxygen (BldV) [Partial pressure] 76 mm[Hg] High 25-40 [facility] White blood cell (WBC) count Ordered By: Juan Rivas on 12-13-2024 WBC (Bld) [#/Vol] 11.3 10*3/uL High 4.4-11.0 [facility] White blood cell countOrdere d By: Juan Rivas on 12-13-2024 White blood cell count 0 SEEN /hpf 0-5 [facility] Emergency Department Summary on 12-12-2024 Emergency Department Summary [facility] Medical Records Department [address] [place] [address] Emergency Department Summary 12/12/24 MR#: [id number] Acct: [id number] Name: UNA COSBY Rep #: [id number] : 1995 29 From: Arik Boswell MD [...] Funtion Narrative Narrative: Patient is a 29-year-old lfcnf-kqfo-saydrlww male who presents with atraumatic left shoulder [...] function intact (more content not included)... Normal [facility] Shoulder min 2 Viewson 12-[address] [facility] Imaging Services [address] [place], [place] [address] Shoulder min 2 Views MR#: [id number] Acct: [id number] Name: UNA COSBY Rep #: [id number] : 1995 M 29 From: Deangelo Peña MD PCP: Care Physician,No Primary Status: REG ER Study: Shoulder min 2 Views Date of Exam: 12/12/24 Exam# [id number] Ordering Dr: Arik Boswell MD PROCEDURE: SHOULDER MIN 2 VIEWS, 12/12/2024 REASON FOR EXAM: INJURY/PAIN TECHNIQUE: AP, Grashey, scapular Y, and axillary views of the LEFT shoulder were obtained. COMPARISON: None FINDINGS: Fracture/dislocation: None visible. Joint space(s): Preserved. Soft tissues: Unremarkable. Foreign bodies: None visible. Bone mineralization: Unremarkable. Other: None. RAD/Shoulder min 2 Views IMPRESSION: No visible acute abnormality. Reading Location: [id number] CC: Dr. Arik Boswell MD; No Primary Care Physician Research Editor: Signed Normal [facility] CBC W/Diff, Automatedon 11-07 PATH REV Reviewed Normal [facility] Comment on above: Result Comment: SEE REPORT IN PATIENT'S EMR AMENDED REPORT 11/23/24 9433 PATH REV previously reported as: December bowen Performed By: #### L 100.0100, L500.2500 #### [facility] [place], [address] Absolute lymphocyte countOrd ered By: Lourdes Metz on 11-11-2024 Lymphocytes Auto (Unsp spec) [#/Vol] 2.97 10*3/uL 0.83-4.51 [facility] Absolute neutrophil countOrd ered By: Lourdes Metz on 11-11-2024 Neutrophils (Bld) [#/Vol] 11.8 10*3/uL High 2.0-7.7 [facility] Anion gap in Serum or Plasma Ordered By: Lourdes Metz on 11-11-2024 Anion gap [Moles/Vol] 11 mmol/L 5-15 [facility] Automated lymphocyte count a s percentage of total leukocytesOrdered By: Lourdes Metz on 11-11-2024 Lymphocytes/100 WBC Auto (Unsp spec) 17.9 % Low 19-41 [facility] BUN/creatinine ratioOrdered By: Lourdes Metz on 11-11-2024 Urea nitrogen/Creatinine [Mass ratio] 16.4 mg/mg 10-20 [facility] Base excess Calc (BldV) [Mol es/Vol]Ordered By: Steven Donaldson on 11-11-2024 Venous Blood Base Excess 2 mmol/L -1.0-3.5 [facility] Basophil percentageOrdered B y: Lourdes Metz on 11-11-2024 Basophils/100 WBC (Bld) 0.2 % 0-1 [facility] Beta hydroxybutyrate [Mass/V ol]Ordered By: Lourdes Metz on 11-11-2024 Beta-Hydroxybutyric Acid mmol/L 0.6 mmol/L 0.0-0.3 [facility] Beta-Hydroxbytyrateon 2024 BETA-HYDROXYBUT 0.6 mmol/L Normal 0.0-0.3 [facility] Comment on above: Performed By: #### L 501.6901 #### [facility] [address] [place], [address] Beta-hydroxybutyrateOrdered By: Lourdes Metz on 11-11-2024 Beta hydroxybutyrate [Mass/Vol] 0.6 mmol/L 0.0-0.3 [facility] Bilirubin, totalOrdered By: Lourdes Metz on 11-11-2024 Bilirubin [Mass/Vol] mg/dL 0.00-1.30 [facility] Blood manual differential co mment interpretation (narrative result)Ordered By: Lourdes Metz on 11-11-2024 Manual differential comment Gigi (Bld) [Interp] SCANNED [facility] CO2 (BldV) [Moles/Vol]Ordere d By: Steven Donaldson on 11-11-2024 CO2 [Moles/Vol] 28 mmol/L 23-33 [facility] CO2 (BldV) [Partial pressure ]Ordered By: Steven Donaldson on 11-11-2024 Bed Mix Venous Bld PCO2 at Pat Temp 39.6 mmHg Low 41-51 [facility] Carbon dioxide, total [Moles /volume] in Central venous bloodOrdered By: Lourdes Metz on 11-11-2024 CO2 [Moles/Vol] 24.8 mmol/L 21.0-32.0 [facility] Chloride assayOrdered By: Malena Metz on 11-11-2024 Chloride [Moles/Vol] 102 mmol/L 98-108 [facility] Comprehensive Metabolic Prof ilon 11-11-2024 Albumin [Mass/Vol] 3.6 g/dL Normal 3.5-5.0 [facility] Comment on above: Performed By: #### L 100.0100, L500.4050, L501.2450 ####[facility] [address] [place], [address] Albumin/Globulin [Mass ratio] 1.4 {ratio} Normal 0.9-2.4 [facility] Comment on above: Performed By: #### L 100.0100, L500.4050, L501.2450 ####[facility] [address] [place], [address] ALK PHOS 123 U/L Normal 40-129 [facility] Comment on above: Performed By: #### L 100.0100, L500.4050, L501.2450 ####[facility] [address] [place], [address] ALT [Catalytic activity/Vol] 20 U/L Normal <=46 [facility] Comment on above: Performed By: #### L 100.0100, L500.4050, L501.2450 ####[facility] [address] [place], [address] AST [Catalytic activity/Vol] 18 U/L Normal <=37 [facility] Comment on above: Performed By: #### L 100.0100, L500.4050, L501.2450 ####[facility] [address] [place], [address] BUN/CRE 16.4 RATIO Normal 10-20 [facility] Comment on above: Performed By: #### L 100.0100, L500.4050, L501.2450 ####[facility] [address] [place], [address] Calcium [Mass/Vol] 8.3 mg/dL Normal 7.6-11.0 [facility] Comment on above: Performed By: #### L 100.0100, L500.4050, L501.2450 ####[facility] [address], [address] Chloride [Moles/Vol] 102 mmol/L Normal 98-108 [facility] Comment on above: Performed By: #### L 100.0100, L500.4050, L501.2450 ####[facility] [address] [place], [address] CO2 [Moles/Vol] 24.8 mmol/L Normal 21.0-32.0 [facility] Comment on above: Performed By: #### L 100.0100, L500.4050, L501.2450 ####[facility] [address] [place], [address] Creatinine [Mass/Vol] 0.85 mg/dL Normal 0.70-1.20 [facility] Comment on above: Performed By: #### L 100.0100, L500.4050, L501.2450 ####[facility] [address] [place], [address] ECRCL 115.58 ml/min Normal 50-250 [facility] Comment on above: Performed By: #### L 100.0100, L500.4050, L501.2450 ####[facility] [address] [place], [address] GAP 11 Normal 5-15 [facility] Comment on above: Performed By: #### L 100.0100, L500.4050, L501.2450 ####[facility] [address] [place], [address] GFR/1.73 sq M.predicted among non-blacks MDRD (S/P/Bld) [Vol rate/Area] 122 mL/min/{1.73_m2} Normal >60 [facility] Comment on above: Result Comment: mL/m in/1.73m2 CKD-EPI Creatinine Equation (2020) Performed By: #### L 100.0100, L500.4050, L501.2450 ####[facility] [address] [place], [address] Globulin (S) [Mass/Vol] 2.6 g/dL Normal 2.2-4.2 [facility] Comment on above: Performed By: #### L 100.0100, L500.4050, L501.2450 ####[facility] [address] [place], [address] Glucose [Mass/Vol] 113 mg/dL High 70-99 [facility] Comment on above: Performed By: #### L 100.0100, L500.4050, L501.2450 ####[facility] [address] [place], [address] Potassium [Moles/Vol] 3.2 mmol/L Low 3.3-5.1 [facility] Comment on above: Performed By: #### L 100.0100, L500.4050, L501.2450 ####[facility] [address] [place], [address] Sodium [Moles/Vol] 138 mmol/L Normal 133-145 [facility] Comment on above: Performed By: #### L 100.0100, L500.4050, L501.2450 ####[facility] [address] [place], [address] T BILI < 0.15 Normal 0.00-1.30 [facility] Comment on above: Performed By: #### L 100.0100, L500.4050, L501.2450 ####[facility] [address] [place], [address] T PROT 6.1 g/dL Normal 5.9-8.4 [facility] Comment on above: Performed By: #### L 100.0100, L500.4050, L501.2450 ####[facility] [address] [place], [address] Urea nitrogen [Mass/Vol] 14 mg/dL Normal 4-19 [facility] Comment on above: Performed By: #### L 100.0100, L500.4050, L501.2450 ####[facility] [address] [place], [address] Emergency Department Summary on 11-11-2024 Emergency Department Summary [facility] Medical Records Department [address] [place] [address] Emergency Department Summary 11/11/24 MR#: [id number] Acct: [id number] Name: UNA COSBY Rep #: [id number] : 1995 29 From: Lourdes P[place] PCP: [...] fevers, chills, hematemesis, diarrhea, and urinary symptoms. [facility] Medical History Learning difficulty due to [...] afternoon a (more content not included)... Normal [facility] Eosinophil percentageOrdered By: Lourdes Metz on 11-11-2024 Eosinophils/100 WBC (Bld) 0.8 % 0-5 [facility] Erythrocyte distribution wid th (RBC) [Ratio]Ordered By: Lourdes Metz on 11-11-2024 Erythrocyte distribution width (RBC) [Entitic vol] 42.0 fL 35.1-43.9 [facility] Erythrocyte distribution wid th ratioOrdered By: Lourdes Metz on 11-11-2024 Erythrocyte distribution width (RBC) [Ratio] 15.8 % High 11.6-14.6 [facility] Erythrocyte distribution wid th standard deviationOrdered By: Lourdes Metz on 11-11-2024 Erythrocyte distribution width (RBC) [Ratio] 42.0 fl 35.1-43.9 [facility] Erythrocyte morphology asses smentOrdered By: Lourdes Metz on 11-11-2024 RBC morphology finding Nom (Bld) NORM C+C NORMAL NORM C&C [facility] Estimation of creatinine long aranceOrdered By: Lourdes Metz on 11-11-2024 Estimated Creatinine Clearance Calc 115.58 ml/min 50-250 [facility] GFR/1.73 sq M.predicted baldev g non-blacks MDRD (S/P/Bld) [Vol rate/Area]Ordered By: Lourdes Metz on 11-11-2024 Estimated GFR (MDRD) Non-Af Amer 122 >60 [facility] Comment on above: mL/min/1.73m2 CKD-EP I Creatinine Equation (2020) Glomerular filtration rate ( GFR) estimation/1.73 sq m using serum, plasma, or whole bOrdered By: Lourdes Metz on 11-11-2024 GFR/1.73 sq M.predicted among non-blacks MDRD (S/P/Bld) [Vol rate/Area] 122 mL/min/{1.73_m2} >60 [facility] Comment on above: mL/min/1.73m2 CKD-EP I Creatinine Equation (2020) Hematocrit Auto (Bld) [Volum e fraction]Ordered By: Lourdes Metz on 11-11-2024 Hematocrit (Bld) [Volume fraction] 39.7 % Low 40-54 [facility] Hemoglobin measurementOrdere d By: Lourdes Metz on 11-11-2024 Hemoglobin (Bld) [Mass/Vol] 12.5 g/dL Low 13.0-16.5 [facility] Immature granulocytes/100 WB C Auto (Bld)Ordered By: Lourdes Metz on 11-11-2024 Immature granulocytes/100 WBC (Bld) 0.400 % 0.0-0.9 [facility] Comment on above: IG% - Immature Granu locytes (promyelocytes, myelocytes and metamyelocytes) > 1% indicates that a LEFT SHIFT is Present. Laboratory - Chemistry and C hemistry - challengeOrdered By: Lourdes Metz on 11-11-2024 AST [Catalytic activity/Vol] 18 U/L <38 [facility] Lipaseon 11-11-2024 Lipase [Catalytic activity/Vol] 17 U/L Normal 13-75 [facility] Comment on above: Result Comment: Stella caro note: LIPASE revised reference range effective 22. New Lipase methodology. Expected to produce lower values than the previous assay method. NEW Reference Range: 13 - 75 U/L Performed By: #### L 100.0100, L500.2500 #### [facility] [place], [address] Lipase measurementOrdered By : Lourdes Metz on 11-11-2024 Lipase [Catalytic activity/Vol] 17 U/L 13-75 [facility] Comment on above: Please note:LIPASE r evised reference range effective 22. New Lipase methodology. Expected to produce lower values than the previous assay method. NEW Reference Range: 13 - 75 U/L Lymphocytes Auto (Unsp spec) [#/Vol]Ordered By: Lourdes Metz on 11-11-2024 Lymphocytes (Bld) [#/Vol] 2.97 10*3/uL 0.83-4.51 [facility] Lymphocytes/100 WBC Auto (Un sp spec)Ordered By: Lourdes Metz on 11-11-2024 Lymphocytes/100 WBC (Bld) 17.9 % Low 19-41 [facility] MCV (mean corpuscular volume ) determinationOrdered By: Lourdes Metz on 11-11-2024 MCV (RBC) [Entitic vol] 75.0 fL Low 80-94 [facility] Manual differential comment Gigi (Bld) [Interp]Ordered By: Lourdes Metz on 11-11-2024 Differential Comment SCANNED [facility] Mean corpuscular hemoglobin (MCH) determinationOrdered By: Lourdes Metz on 11-11-2024 MCH (RBC) [Entitic mass] 23.6 pg Low 27.0-32.0 [facility] Mean corpuscular hemoglobin concentration (MCHC) determinationOrdered By: Lourdes Metz on 11-11-2024 MCHC (RBC) [Mass/Vol] 31.5 g/dL Low 32-36 [facility] Mean platelet volume determi nationOrdered By: Lourdes Metz on 11-11-2024 Platelet mean volume (Bld) [Entitic vol] 10.6 fL 6.2-12.0 [facility] Monocyte percentageOrdered B y: Lourdes Metz on 11-11-2024 Monocytes/100 WBC (Bld) 9.5 % 0-10 [facility] Neutrophil percentageOrdered By: Lourdes Metz on 11-11-2024 Neutrophils/100 WBC (Bld) 71.2 % High 47-70 [facility] No Panel InformationOrdered By: Steven Donaldson on 11-11-2024 Blood Gas Sample Site Not entered [facility] Blood Gas Specimen Type JAIDEN [facility] Oxygen Delivery Device Room Air [facility] Nucleated red blood cell per centageOrdered By: Lourdes Metz on 11-11-2024 Nucleated RBC/100 WBC (Bld) [Ratio] 0 % 0-5 [facility] Oxygen (BldV) [Partial press ure]Ordered By: Steven Donaldson on 11-11-2024 Venous Blood Partial Pressure O2 40 mmHg 25-40 [facility] Pathologist review Gigi (Unsp spec) [Interp]Ordered By: Lourdes Metz on 11-11-2024 Differential Pathologist's Review May [facility] Platelet countOrdered By: Malena Metz on 11-11-2024 Platelets (Bld) [#/Vol] 314 10*3/uL 150-450 [facility] Platelet estimateOrdered By: Lourdes Metz on 11-11-2024 Platelets LM Ql (Bld) ADEQUATE ADEQ [facility] Platelet morphologyOrdered B y: Lourdes Metz on 11-11-2024 Platelet morphology finding Nom (Bld) LARGE [facility] Platelet morphology finding Nom (Bld)Ordered By: Lourdes Metz on 11-11-2024 Platelet Morphology Comment LARGE [facility] Platelets LM Ql (Bld)Ordered By: Lourdes Metz on 11-11-2024 Platelet Estimate ADEQUATE [facility] Potassium (Unsp spec) [Mass/ Vol]Ordered By: Lourdes Metz on 11-11-2024 Potassium [Moles/Vol] 3.2 mmol/L Low 3.3-5.1 [facility] Potassium measurement (mass/ volume)Ordered By: Lourdes Metz on 11-11-2024 Potassium (Unsp spec) [Mass/Vol] 3.2 mmol/L Low 3.3-5.1 [facility] RBC Auto (Bld) [#/Vol]Ordere d By: Lourdes Metz on 11-11-2024 RBC (Bld) [#/Vol] 5.29 10*6/uL 4.6-6.2 [facility] RBC morphology finding Nom ( Bld)Ordered By: Lourdes Metz on 11-11-2024 Red Blood Cell Morphology NORM C+C NORMAL NORM C&C [facility] Review by pathologistOrdered By: Lourdes Metz on 11-11-2024 Pathologist review Gigi (Unsp spec) [Interp] Reviewed [facility] Comment on above: Previous reported re sult: Louisa wiseman Edited by: ANAYELI on 11/23/24:1409SEE REPORT IN PATIENT'S EMR AMENDED REPORT 11/23/24 1409 PATH REV previously reported as: Louisa wiseman Serum creatinine measurement (mass/volume)Ordered By: Lourdes Metz on 11-11-2024 Creatinine [Mass/Vol] 0.85 mg/dL 0.70-1.20 [facility] Serum globulin measurementOr dered By: Lourdes Metz on 11-11-2024 Globulin (S) [Mass/Vol] 2.6 g/dL 2.2-4.2 [facility] Serum glucose measurement (m ass/volume)Ordered By: Lourdes Metz on 11-11-2024 Glucose [Mass/Vol] 113 mg/dL High 70-99 [facility] Serum or plasma alanine oviedo otransferase (ALT) measurementOrdered By: Lourdes Metz on 11-11-2024 ALT [Catalytic activity/Vol] 20 U/L <47 [facility] Serum or plasma albumin koby urement (mass/volume)Ordered By: Lourdes Metz on 11-11-2024 Albumin [Mass/Vol] 3.6 g/dL 3.5-5.0 [facility] Serum or plasma albumin/glob ulin mass ratioOrdered By: Lourdes Metz on 11-11-2024 Albumin/Globulin [Mass ratio] 1.4 {ratio} 0.9-2.4 [facility] Serum or plasma alkaline lopez sphatase measurementOrdered By: Lourdes Metz on 11-11-2024 ALP [Catalytic activity/Vol] 123 U/L 40-129 [facility] Serum or plasma calcium koby urement (mass/volume)Ordered By: Lourdes Metz on 11-11-2024 Calcium [Mass/Vol] 8.3 mg/dL 7.6-11.0 [facility] Serum or plasma urea nitroge n measurement (mass/volume)Ordered By: Lourdes Metz on 11-11-2024 Urea nitrogen [Mass/Vol] 14 mg/dL 4-19 [facility] Sodium levelOrdered By: Wesly Metz on 11-11-2024 Sodium [Moles/Vol] 138 mmol/L 133-145 [facility] Total proteinOrdered By: Graham Metz on 11-11-2024 Protein [Mass/Vol] 6.1 g/dL 5.9-8.4 [facility] Venous Blood Gason Blood Gas Type JAIDEN Normal [facility] Comment on above: Performed By: #### L 501.6901 #### [facility] [address] [place], [address] CO2 [Moles/Vol] 28 mmol/L Normal 23-33 [facility] Comment on above: Performed By: #### L 501.6901 #### [facility] [address] [place], [address] HCO3 (Bld) [Moles/Vol] 27 mmol/L High 22-26 [facility] Comment on above: Performed By: #### L 501.6901 #### [facility] [address] [place], [address] O2 Delivery Dev Room Air Normal [facility] Comment on above: Performed By: #### L 501.6901 #### [facility] [address] [place], [address] SITE Not entered Normal [facility] Comment on above: Performed By: #### L 501.6901 #### [facility] [address] [place], [address] VBG BE 2 mmol/L Normal -1.0-3.5 [facility] Comment on above: Performed By: #### L 501.6901 #### [facility] [address] [place], [address] VBG pCO2 39.6 mmHg Low 41-51 [facility] Comment on above: Performed By: #### L 501.6901 #### [facility] [address] [place], [place], [address] VBG pH 7.44 High 7.32-7.42 [facility] Comment on above: Performed By: #### L 501.6901 #### [facility] [address] [place], [address] VBG PO2 40 mmHg Normal 25-40 [facility] Comment on above: Performed By: #### L 501.6901 #### [facility] [address] [place], [address] VBG SO2 76 High 50-70 [facility] Comment on above: Performed By: #### L 501.6901 #### [facility] [address] [place], [address] Venous blood base excess yaya surementOrdered By: Steven Donaldson on 11-11-2024 Base excess Calc (BldV) [Moles/Vol] 2 mmol/L -1.0-3.5 [facility] Venous blood bicarbonate yaya surementOrdered By: Steven Donaldson on 11-11-2024 HCO3 (Bld) [Moles/Vol] 27 mmol/L High 22-26 [facility] Venous blood oxygen saturati on measurementOrdered By: Steven Donaldson on 11-11-2024 Oxygen saturation in Blood 76 % High 50-70 [facility] Venous blood pH measurementO rdered By: Steven Donaldson on 11-11-2024 pH (BldV) 7.44 [pH] High 7.32-7.42 [facility] Venous blood partial pressur e of carbon dioxide measurementOrdered By: Steven Donaldson on 11-11-2024 CO2 (BldV) [Partial pressure] 39.6 mm[Hg] Low 41-51 [facility] Venous blood partial pressur e of oxygen measurementOrdered By: Steven Lowery on 11-11-2024 Oxygen (BldV) [Partial pressure] 40 mm[Hg] 25-40 [facility] White blood cell (WBC) count Ordered By: Lourdes Metz on 11-11-2024 WBC (Bld) [#/Vol] 16.6 10*3/uL High 4.4-11.0 [facility] pH (BldV)Ordered By: Steven Rasmussen on 11-11-2024 Venous Blood pH 7.44 High 7.32-7.42 [facility] 12 Lead EKGon 10-19-[address] [facility] Cardi[facility] Services [address] [place] [address] 12 Lead EKG 10/19/24 0029 MR#: [id number] Acct: [id number] Name: UNA COSBY Rep #: [id number] : 1995 29 From: Taylor Man MD [...] ECG Confirmed by MEGAN MIRELES, NIKKI ([id number]), web editor COREY MICHAEL ([id number]) on 10/23/2024 10:53:38 AM Referred By: Confirmed By: NIKKI MAN MD 10/23/24 1053 Date Taylor Man MD CC: Dr. Keisha Handy, DO; No Primary Care Physician Signed Normal [facility] Absolute lymphocyte countOrd ered By: Keisha Handy on 10-19-2024 Lymphocytes Auto (Unsp spec) [#/Vol] 3.70 10*3/uL 0.83-4.51 [facility] Absolute neutrophil countOrd ered By: Keisha Handy on 10-19-2024 Neutrophils (Bld) [#/Vol] 8.5 10*3/uL High 2.0-7.7 [facility] Anion gap in Serum or Plasma Ordered By: Keisha Handy on 10-19-2024 Anion gap [Moles/Vol] 17 mmol/L High 5-15 [facility] Comment on above: Previous reported re sult: 14 Edited by: LUCERO on 10/19/24:0209 AMENDED REPORT 10/19/24 0209 GAP previously reported as: 14 Automated lymphocyte count a s percentage of total leukocytesOrdered By: Keisha Handy on 10-19-2024 Lymphocytes/100 WBC Auto (Unsp spec) 27.7 % 19-41 [facility] BUN/creatinine ratioOrdered By: Keisha Handy on 10-19-2024 Urea nitrogen/Creatinine [Mass ratio] 26.8 mg/mg High 10-20 [facility] Comment on above: Previous reported re sult: 25.4 RATIOEdited by: LUCERO on 10/19/24:0209 AMENDED REPORT 10/19/24 0209 BUN/CRE previously reported as: 25.4 H RATIO Base excess Calc (BldV) [Mol es/Vol]Ordered By: Keisha aHndy on 10-19-2024 Venous Blood Base Excess -2 mmol/L Low -1.0-3.5 [facility] Basic Metabolic Profile (BMP )on 10-19-2024 Calcium [Mass/Vol] 8.9 mg/dL Normal 7.6-11.0 [facility] Comment on above: Performed By: #### L 100.0100, L501.4021, L500.2500 ####[facility] [address] [place], [address] GFR/1.73 sq M.predicted among non-blacks MDRD (S/P/Bld) [Vol rate/Area] 134 mL/min/{1.73_m2} Normal >60 [facility] Comment on above: Result Comment: mL/m in/1.73m2 CKD-EPI Creatinine Equation (2020) Performed By: #### L 100.0100, L501.4021, L500.2500 ####[facility] [address] [place], [address] Basophil percentageOrdered B y: Keisha Handy on 10-19-2024 Basophils/100 WBC (Bld) 0.7 % 0-1 [facility] Bedside Glucoseon 10-19-2024 FINGERSTICK GLU 312 mg/dL High 74-106 [facility] Comment on above: Result Comment: TEJAL MATTA OF PATIENT CARE PER NURSING PROTOCOL Performed By: #### L 501.080 ####[facility] [address] [place], [address] Bilirubin Test strip Ql (U)O rdered By: Keisha Handy on 10-19-2024 Bilirubin Ql (U) Negative Negative [facility] CBC W/Diff, Automatedon 10-07 Absolute Lymph 3.70 X10 3/uL Normal 0.83-4.51 [facility] Comment on above: Performed By: #### L 100.0100, L501.4021, L500.2500 ####[facility] [address] [place], [address] Absolute Neut 8.5 X10 3/uL High 2.0-7.7 [facility] Comment on above: Performed By: #### L 100.0100, L501.4021, L500.2500 ####[facility] [address] [place], [address] Basophils/100 WBC (Bld) 0.7 % Normal 0-1 [facility] Comment on above: Performed By: #### L 100.0100, L501.4021, L500.2500 ####[facility] [address] [place], [address] Eosinophils/100 WBC (Bld) 1.5 % Normal 0-5 [facility] Comment on above: Performed By: #### L 100.0100, L501.4021, L500.2500 ####[facility] [address] [place], [address] Erythrocyte distribution width (RBC) [Ratio] 16.5 % High 11.6-14.6 [facility] Comment on above: Performed By: #### L 100.0100, L501.4021, L500.2500 ####[facility] [address] [place], [address] Hematocrit (Bld) [Volume fraction] 43.5 % Normal 40-54 [facility] Comment on above: Performed By: #### L 100.0100, L501.4021, L500.2500 ####[facility] [address] [place], [address] Hemoglobin (Bld) [Mass/Vol] 13.4 g/dL Normal 13.0-16.5 [facility] Comment on above: Performed By: #### L 100.0100, L501.4021, L500.2500 ####[facility] [address] [place], [address] IG% 0.400 Normal 0.0-0.9 [facility] Comment on above: Result Comment: IG% - Immature Granulocytes (promyelocytes, myelocytes and metamyelocytes) > 1% indicates that a LEFT SHIFT is Present. Performed By: #### L 100.0100, L501.4021, L500.2500 ####[facility] [address] [place], [address] Lymphocytes/100 WBC (Bld) 27.7 % Normal 19-41 [facility] Comment on above: Performed By: #### L 100.0100, L501.4021, L500.2500 ####[facility] [address] [place], [address] MCH (RBC) [Entitic mass] 23.2 pg Low 27.0-32.0 [facility] Comment on above: Performed By: #### L 100.0100, L501.4021, L500.2500 ####[facility] [address] [place], [address] MCHC (RBC) [Mass/Vol] 30.8 g/dL Low 32-36 [facility] Comment on above: Performed By: #### L 100.0100, L501.4021, L500.2500 ####[facility] [address] [place], [address] MCV (RBC) [Entitic vol] 75.3 fL Low 80-94 [facility] Comment on above: Performed By: #### L 100.0100, L501.4021, L500.2500 ####[facility] [address] [place], [address] Monocytes/100 WBC (Bld) 6.2 % Normal 0-10 [facility] Comment on above: Performed By: #### L 100.0100, L501.4021, L500.2500 ####[facility] [address] [place], [address] Neutrophils/100 WBC (Bld) 63.5 % Normal 47-70 [facility] Comment on above: Performed By: #### L 100.0100, L501.4021, L500.2500 ####[facility] [address] [place], [address] Nucleated RBC (Bld) [#/Vol] 0 10*3/uL Normal 0-5 [facility] Comment on above: Performed By: #### L 100.0100, L501.4021, L500.2500 ####[facility] [address] [place], [address] Platelet mean volume (Bld) [Entitic vol] 10.3 fL Normal 6.2-12.0 [facility] Comment on above: Performed By: #### L 100.0100, L501.4021, L500.2500 ####[facility] [address] [place], [address] Platelets (Bld) [#/Vol] 346 10*3/uL Normal 150-450 [facility] Comment on above: Performed By: #### L 100.0100, L501.4021, L500.2500 ####[facility] [address] [place], [address] RBC (Bld) [#/Vol] 5.78 10*6/uL Normal 4.6-6.2 [facility] Comment on above: Performed By: #### L 100.0100, L501.4021, L500.2500 ####[facility] [address] [place], [address] RDW SD 43.9 fl Normal 35.1-43.9 [facility] Comment on above: Performed By: #### L 100.0100, L501.4021, L500.2500 ####[facility] [address] [place], [address] WBC (Bld) [#/Vol] 13.4 10*3/uL High 4.4-11.0 [facility] Comment on above: Performed By: #### L 100.0100, L501.4021, L500.2500 ####[facility] [address] [place], [address] CO2 (BldV) [Moles/Vol]Ordere d By: Keisha Handy on 10-19-2024 CO2 [Moles/Vol] 25 mmol/L 23-33 [facility] CO2 (BldV) [Partial pressure ]Ordered By: Keisha Handy on 10-19-2024 Bed Mix Venous Bld PCO2 at Pat Temp 41.4 mmHg 41-51 [facility] Carbon dioxide, total [Moles /volume] in Central venous bloodOrdered By: Keisha Handy on 10-19-2024 CO2 [Moles/Vol] 20.5 mmol/L Low 21.0-32.0 [facility] Comment on above: Previous reported re sult: 22.7 mmol/LEdited by: AUTOINS on 10/19/24:0209 AMENDED REPORT 10/19/24 0209 CO2 previously reported as: 22.7 mmol/L Chest PA and Lateralon 10-19 [address] L[address] [facility] Imaging Services [address] [place] [address] Chest PA and Lateral MR#: [id number] Acct: [id number] Name: UNA COSBY Rep #: [id number] : 1995 M 29 From: Tirso Massey MD PCP: Dr. Deangelo Noel MD Status: PRE ER Study: Chest PA and Lateral Date of Exam: 10/19/24 Exam# [id number] Ordering Dr: Keisha Handy DO PROCEDURE: CHEST PA AND LATERAL REASON FOR EXAM: CHEST PAIN TECHNIQUE: PA and lateral views of the chest. COMPARISON: 02/15/2023 FINDINGS: The lungs are clear. The cardiac and mediastinal contours are within limits. The visualized osseous structures appear within limits. RAD/Chest PA and Lateral IMPRESSION: No evidence of acute disease. Reading Location: [id number] CC: Dr. Keisha Handy DO; Dr. Deangelo Noel MD Research Editor: Signed Normal [facility] Chloride assayOrdered By: Javier Handy on 10-19-2024 Chloride [Moles/Vol] 92 mmol/L Low 98-108 [facility] Comment on above: Previous reported re sult: 93 mmol/LEdited by: LUCERO on 10/19/24:0209 AMENDED REPORT 10/19/24 0209 CL previously reported as: 93 L mmol/L D-Dimer Quantitative (DVT/PE )on 10-19-2024 D-DIMER QUANT 0.28 FEU/ug/m Normal 0.27-0.49 [facility] Comment on above: Result Comment: NORM AL D-Dimer level (<0.50) indicates no DVT or PE. Performed By: #### L 501.6901 #### [facility] [address] [place], [place], [address] D-dimer measurement for deep venous thrombosisOrdered By: Keisha Handy on 10-19-2024 D-Dimer Quantitative (PE/DVT) 0.28 FEU/ug/m 0.27-0.49 [facility] Comment on above: NORMAL D-Dimer level (<0.50) indicates no DVT or PE. Emergency Department Summary on 10-19-2024 Emergency Department Summary [facility] Medical Records Department [address] [place] [address] Emergency Department Summary 10/19/24 MR#: [id number] Acct: [id number] Name: UNA COSBY Rep #: [id number] : 1995 29 From: Keisha Handy DO [...] complaints or concerns reported at this time. [facility] Medical History Learning difficulty due to [...] 10/19/24 Unknown History mL 31 gauge x 12/22 (TRUEplus Insulin) [...] NAD HEEN (more content not included)... Normal [facility] Eosinophil percentageOrdered By: Keisha Handy on 10-19-2024 Eosinophils/100 WBC (Bld) 1.5 % 0-5 [facility] Epithelial cells.squamous LM Ql (Urine sed)Ordered By: Keisha Handy on 10-19-2024 Epithelial cells.squamous LM.HPF (Urine sed) [#/Area] 0 /[HPF] 0-5 [facility] Erythrocyte distribution wid th ratioOrdered By: Keisha Handy on 10-19-2024 Erythrocyte distribution width (RBC) [Ratio] 16.5 % High 11.6-14.6 [facility] Erythrocyte distribution wid th standard deviationOrdered By: Keisha Handy on 10-19-2024 Erythrocyte distribution width (RBC) [Entitic vol] 43.9 fL 35.1-43.9 [facility] Erythrocyte distribution width (RBC) [Ratio] 43.9 fl 35.1-43.9 [facility] Estimation of creatinine long aranceOrdered By: Keisha Handy on 10-19-2024 Estimated Creatinine Clearance Calc 163.42 ml/min 50-250 [facility] GFR/1.73 sq M.predicted baldev g non-blacks MDRD (S/P/Bld) [Vol rate/Area]Ordered By: Keisha Handy on 10-19-2024 Estimated GFR (MDRD) Non-Af Amer 134 >60 [facility] Comment on above: mL/min/1.73m2 CKD-EP I Creatinine Equation (2020) Glomerular filtration rate ( GFR) estimation/1.73 sq m using serum, plasma, or whole bOrdered By: Keisha Handy on 10-19-2024 GFR/1.73 sq M.predicted among non-blacks MDRD (S/P/Bld) [Vol rate/Area] 134 mL/min/{1.73_m2} >60 [facility] Comment on above: mL/min/1.73m2 CKD-EP I Creatinine Equation (2020) Glucose Ql (U)Ordered By: Javier Handy on 10-19-2024 Glucose (U) [Mass/Vol] 1000 mg/dL High Normal [facility] deOrdered By: Keisha Handy on 10-19-2024 Bedside Glucose (Misc Panel) 312 mg/dL High 74-106 [facility] Comment on above: MANAGEMENT OF PATIEN T CARE PER NURSING PROTOCOL Glucose [Mass/Vol] 312 mg/dL High 74-106 [facility] Comment on above: MANAGEMENT OF PATIEN T CARE PER NURSING PROTOCOL Hematocrit Auto (Bld) [Volum e fraction]Ordered By: Keisha Handy on 10-19-2024 Hematocrit (Bld) [Volume fraction] 43.5 % 40-54 [facility] Hemoglobin measurementOrdere d By: Keisha Handy on 10-19-2024 Hemoglobin (Bld) [Mass/Vol] 13.4 g/dL 13.0-16.5 [facility] Immature granulocytes/100 WB C Auto (Bld)Ordered By: Keisha Handy on 10-19-2024 Immature granulocytes/100 WBC (Bld) 0.400 % 0.0-0.9 [facility] Comment on above: IG% - Immature Granu locytes (promyelocytes, myelocytes and metamyelocytes) > 1% indicates that a LEFT SHIFT is Present. Ketones Test strip Ql (U)Ord ered By: Keisha Handy on 10-19-2024 Ketones Ql (U) 15 mg/dl High Negative [facility] L499.0042on 10-19-2024 Trop T High Sen 9 ng/L Normal <=22 [facility] Comment on above: Performed By: #### L 501.6901 #### [facility] [address] [place], [address] L501.4021on 10-19-2024 Trop T High Sen 8 ng/L Normal <=22 [facility] Comment on above: Result Comment: AMENDED REPORT 10/19/24 0201 Trop T High Sen previously reported as: 7 ng/L Performed By: #### L 100.0100, L501.4021, L500.2500 ####[facility] [address] [place], [address] L501.6901on 10-19-2024 BETA-HYDROXYBUT 0.6 mmol/L Normal 0.0-0.3 [facility] Comment on above: Performed By: #### L 501.080 #### [facility] [address] [place], [address] Lymphocytes Auto (Unsp spec) [#/Vol]Ordered By: Keisha Handy on 10-19-2024 Lymphocytes (Bld) [#/Vol] 3.70 10*3/uL 0.83-4.51 [facility] Lymphocytes/100 WBC Auto (Un sp spec)Ordered By: Keisha Handy on 10-19-2024 Lymphocytes/100 WBC (Bld) 27.7 % 19-41 [facility] MCV (mean corpuscular volume ) determinationOrdered By: Keisha Handy on 10-19-2024 MCV (RBC) [Entitic vol] 75.3 fL Low 80-94 [facility] Mean corpuscular hemoglobin (MCH) determinationOrdered By: Keisha Handy on 10-19-2024 MCH (RBC) [Entitic mass] 23.2 pg Low 27.0-32.0 [facility] Mean corpuscular hemoglobin concentration (MCHC) determinationOrdered By: Keisha Handy on 10-19-2024 MCHC (RBC) [Mass/Vol] 30.8 g/dL Low 32-36 [facility] Mean platelet volume determi nationOrdered By: Keisha Handy on 10-19-2024 Platelet mean volume (Bld) [Entitic vol] 10.3 fL 6.2-12.0 [facility] Microscopic analysis of urin e for red blood cells (RBC)Ordered By: Keisha Handy on 10-19-2024 Microscopic analysis of urine for red blood cells (RBC) 0-5 SEEN /hpf 0-5 [facility] Urine RBC 0-5 SEEN /hpf 0-5 [facility] Monocyte percentageOrdered B y: Keisha Handy on 10-19-2024 Monocytes/100 WBC (Bld) 6.2 % 0-10 [facility] Mucus LM Ql (Urine sed)Order ed By: Keisha Handy on 10-19-2024 Mucus Ql (Urine sed) 0 SEEN /hpf [facility] Neutrophil percentageOrdered By: Keisha Handy on 10-19-2024 Neutrophils/100 WBC (Bld) 63.5 % 47-70 [facility] Nitrite Test strip Ql (U)Ord ered By: Keisha Handy on 10-19-2024 Nitrite Ql (U) Negative Negative [facility] No Panel InformationOrdered By: Keisha Handy on 10-19-2024 Blood Gas Sample Site Not entered [facility] Blood Gas Specimen Type JAIDEN [facility] Oxygen Delivery Device Room Air [facility] Beta-Hydroxybutyric Acid mmol/L 0.6 mmol/L 0.0-0.3 [facility] Troponin T High Sensitivity 8 ng/L <22 [facility] Comment on above: Previous reported re sult: 7 ng/LEdited by: LUCERO on 10/19/24:0201 AMENDED REPORT 10/19/24200 Trop T High Sen previously reported as: 7 ng/L Nucleated red blood cell per centageOrdered By: Keisha Handy on 10-19-2024 Nucleated RBC/100 WBC (Bld) [Ratio] 0 % 0-5 [facility] Oxygen (BldV) [Partial press ure]Ordered By: Keisha Handy on 10-19-2024 Venous Blood Partial Pressure O2 32 mmHg 25-40 [facility] Platelet countOrdered By: Javier Handy on 10-19-2024 Platelets (Bld) [#/Vol] 346 10*3/uL 150-450 [facility] Potassium (Unsp spec) [Mass/ Vol]Ordered By: Keisha Handy on 10-19-2024 Potassium [Moles/Vol] 4.1 mmol/L 3.3-5.1 [facility] Potassium measurement (mass/ volume)Ordered By: Keisha Handy on 10-19-2024 Potassium (Unsp spec) [Mass/Vol] 4.1 mmol/L 3.3-5.1 [facility] Protein Test strip Ql (U)Ord ered By: Keisha Handy on 10-19-2024 Protein Ql (U) 100 mg/dl High Negative [facility] RBC Auto (Bld) [#/Vol]Ordere d By: Keisha Handy on 10-19-2024 RBC (Bld) [#/Vol] 5.78 10*6/uL 4.6-6.2 [facility] Serum creatinine measurement (mass/volume)Ordered By: Keisha Handy on 10-19-2024 Creatinine [Mass/Vol] 0.63 mg/dL Low 0.70-1.20 [facility] Serum glucose measurement (m ass/volume)Ordered By: Keisha Handy on 10-19-2024 Glucose [Mass/Vol] 458 mg/dL High 70-99 [facility] Comment on above: Critical Result(s) C alled at:0208 by: SERAFIN BELL TO RN SHUFF2 Results read back by same.Previous reported result: 457 mg/dLEdited by: LUCERO on 10/19/24:0209 AMENDED REPORT 10/19/24208 GLU previously reported as: 457 *H mg/dL Serum or plasma calcium koby urement (mass/volume)Ordered By: Keisha Handy on 10-19-2024 Calcium [Mass/Vol] 8.9 mg/dL 7.6-11.0 [facility] Serum or plasma urea nitroge n measurement (mass/volume)Ordered By: Keisha Handy on 10-19-2024 Urea nitrogen [Mass/Vol] 17 mg/dL 4-19 [facility] Comment on above: Previous reported re sult: 16 mg/dLEdited by: LUCERO on 10/19/24:0209 AMENDED REPORT 10/19/24 020 BUN previously reported as: 16 mg/dL Sodium levelOrdered By: Roger Handy on 10-19-2024 Sodium [Moles/Vol] 129 mmol/L Low 133-145 [facility] Comment on above: Previous reported re sult: 130 mmol/LEdited by: LUCERO on 10/19/24:0209 AMENDED REPORT 10/19/24208 NA previously reported as: 130 L mmol/L Squamous epithelial cells de tection in urine sediment by light microscopyOrdered By: Keisha Handy on 10-19-2024 Epithelial cells.squamous LM Ql (Urine sed) 0-5 SEEN /hpf 0-5 [facility] Troponin T.cardiac High sens itivity method [Mass/Vol]Ordered By: Keisha Handy on 10-19-2024 Troponin T High Sensitivity 2 Hour 9 ng/L <22 [facility] Troponin T.cardiac [Mass/vol ume] in Serum or Plasma by High sensitivity methodOrdered By: Keisha Handy on 10-19-2024 Troponin T.cardiac High sensitivity method [Mass/Vol] 9 ng/L <22 [facility] Urinalysis, Completeon 10-19 BACTERIA 1+ /hpf Normal None Seen [facility] Comment on above: Order Comment: MANN CTOR TO SPECIFY Performed By: #### L 400.0001 ####[facility] [address] [place], [address] EPI,SQUAMOUS 0-5 SEEN Normal 0-5 [facility] Comment on above: Order Comment: AMNN CTOR TO SPECIFY Performed By: #### L 400.0001 ####[facility] [address] [place], [address] RBC 0-5 SEEN Normal 0-5 [facility] Comment on above: Order Comment: MANN CTOR TO SPECIFY Performed By: #### L 400.0001 ####[facility] [address] [place], [address] Mucus Ql (Urine sed) 0 SEEN Normal [facility] Comment on above: Order Comment: MANN CTOR TO SPECIFY Performed By: #### L 400.0001 ####[facility] [address] [place], [address] WBC 0 SEEN Normal 0-5 [facility] Comment on above: Order Comment: MANN CTOR TO SPECIFY Performed By: #### L 400.0001 ####[facility] [address] [place], [address] Urine blood detectionOrdered By: Keisha Handy on 10-19-2024 Urine Occult Blood 25 /ul High Negative [facility] Urine clarityOrdered By: Soraida Handy on 10-19-2024 Clarity (U) Clear Clear [facility] Urine color determinationOrd ered By: Keisha Handy on 10-19-2024 Color (U) Yellow Yellow [facility] Urine glucose detectionOrder ed By: Keisha Handy on 10-19-2024 Glucose Ql (U) 1000 mg/dl High Normal [facility] Urine leukocyte esterase det ection by dipstickOrdered By: Keisha Handy on 10-19-2024 Leukocyte esterase Test strip Ql (U) Negative Negative [facility] Urine pHOrdered By: Keisha santiago on 10-19-2024 pH (U) 6.0 [pH] 5.0 - 8.0 [facility] Urine sediment bacteria coun t by microscopy (number/high power field)Ordered By: Keisha Handy on 10-19-2024 Bacteria LM.HPF (Urine sed) [#/Area] 1 /[HPF] None Seen [facility] Urine specific gravity measu rementOrdered By: Keisha Handy on 10-19-2024 Specific gravity (U) [Rel density] 1.010 1.002-1.03 0 [facility] Urine urobilinogen measureme ntOrdered By: Keisha Handy on 10-19-2024 Urobilinogen Ql (U) Normal mg/dl Normal [facility] Urobilinogen Ql (U)Ordered B y: Keisha Handy on 10-19-2024 Urine Urobilinogen Normal mg/dl Normal [facility] Venous Blood Gason Blood Gas Type JAIDEN Normal [facility] Comment on above: Performed By: #### L 9000.0810 ####[facility] [address] [place], [address] CO2 [Moles/Vol] 25 mmol/L Normal 23-33 [facility] Comment on above: Performed By: #### L 9000.0810 ####[facility] [address] [place], [address] HCO3 (Bld) [Moles/Vol] 23 mmol/L Normal 22-26 [facility] Comment on above: Performed By: #### L 9000.0810 ####[facility] [address] [place], [address] O2 Delivery Dev Room Air Normal [facility] Comment on above: Performed By: #### L 9000.0810 ####[facility] [address] [place], [address] SITE Not entered [facility] Comment on above: Performed By: #### L 9000.0810 ####[facility] [address] [place], [address] VBG BE -2 mmol/L Low -1.0-3.5 [facility] Comment on above: Performed By: #### L 9000.0810 ####[facility] [address] [place], [address] VBG pCO2 41.4 mmHg Normal 41-51 [facility] Comment on above: Performed By: #### L 9000.0810 ####[facility] [address] [place], [address] VBG pH 7.36 Normal 7.32-7.42 [facility] Comment on above: Performed By: #### L 9000.0810 ####[facility] [address] [place], [address] VBG PO2 32 mmHg Normal 25-40 [facility] Comment on above: Performed By: #### L 9000.0810 ####[facility] [address] [place], [address] VBG SO2 59 Normal 50-70 [facility] Comment on above: Performed By: #### L 9000.0810 ####[facility] [address] [place], [address] Venous blood base excess yaya surementOrdered By: Keisha Handy on 10-19-2024 Base excess Calc (BldV) [Moles/Vol] -2 mmol/L Low -1.0-3.5 [facility] Venous blood bicarbonate yaya surementOrdered By: Keisha Handy on 10-19-2024 HCO3 (Bld) [Moles/Vol] 23 mmol/L 22-26 [facility] Venous blood oxygen saturati on measurementOrdered By: Keisha Handy on 10-19-2024 Oxygen saturation in Blood 59 % 50-70 [facility] Venous blood pH measurementO rdered By: Keisha Handy on 10-19-2024 pH (BldV) 7.36 [pH] 7.32-7.42 [facility] Venous blood partial pressur e of carbon dioxide measurementOrdered By: Keisha Handy on 10-19-2024 CO2 (BldV) [Partial pressure] 41.4 mm[Hg] 41-51 [facility] Venous blood partial pressur e of oxygen measurementOrdered By: Keisha Handy on 10-19-2024 Oxygen (BldV) [Partial pressure] 32 mm[Hg] 25-40 [facility] White blood cell (WBC) count Ordered By: Keisha Handy on 10-19-2024 WBC (Bld) [#/Vol] 13.4 10*3/uL High 4.4-11.0 [facility] White blood cell countOrdere d By: Keisha Handy on 10-19-2024 Urine WBC 0 SEEN /hpf 0-5 [facility] White blood cell count 0 SEEN /hpf 0-5 [facility] pH (BldV)Ordered By: Keisha Handy on 10-19-2024 Venous Blood pH 7.36 7.32-7.42 [facility] CBC W Auto Differential pane l (Bld)on 10-10-2024 Basophils (Bld) [#/Vol] 0.06 10*3/uL Normal <0.11 [facility] Comment on above: Order Comment: Speci men Type: BLOOD SPECIMEN Ordering Facility: [facility] Address: [address] [place] [address] Performed By: #### 5 7021-8 #### [facility] CLIA [id number] [address] [place] [address] [place] Basophils/100 WBC (Bld) 0.5 % Normal [facility] Comment on above: Order Comment: Speci men Type: BLOOD SPECIMEN Ordering Facility: [facility] Address: [address] [place] [address] Performed By: #### 5 7021-8 #### [facility] CLIA [id number] [address] [place] [address] [place] Differential cell count method Nom (Bld) Auto Normal [facility] Comment on above: Order Comment: Speci men Type: BLOOD SPECIMEN Ordering Facility: [facility] Address: [address] [place] [address] Performed By: #### 5 7021-8 #### [facility] CLIA [id number] [address] [place] [address] [place] Eosinophils (Bld) [#/Vol] 0.20 10*3/uL Normal <0.46 [facility] Comment on above: Order Comment: Speci men Type: BLOOD SPECIMEN Ordering Facility: [facility] Address: [address] [place] [address] Performed By: #### 5 7021-8 #### [facility] CLIA [id number] [address] [place] [address] [place] Eosinophils/100 WBC (Bld) 1.6 % Normal [facility] Comment on above: Order Comment: Speci men Type: BLOOD SPECIMEN Ordering Facility: [facility] Address: [address] [place] [address] Performed By: #### 5 7021-8 #### [facility] CLIA [id number] [address] [place] [address] [place] Erythrocyte distribution width (RBC) [Ratio] 16.2 % High 11.5-15.0 [facility] Comment on above: Order Comment: Speci men Type: BLOOD SPECIMEN Ordering Facility: [facility] Address: [address] [place] [address] Performed By: #### 5 7021-8 #### [facility] CLIA [id number] [address] [place] [address] [place] Hematocrit (Bld) [Volume fraction] 42.3 % Normal 39.0-51.0 [facility] Comment on above: Order Comment: Speci men Type: BLOOD SPECIMEN Ordering Facility: [facility] Address: [address] [place] [address] Performed By: #### 5 7021-8 #### [facility] CLIA [id number] [address] [place] [address] [place] Hemoglobin (Bld) [Mass/Vol] 13.0 g/dL Normal 13.0-17.0 [facility] Comment on above: Order Comment: Speci men Type: BLOOD SPECIMEN Ordering Facility: [facility] Address: [address] [place] [address] Performed By: #### 5 7021-8 #### [facility] CLIA [id number] [address] [place] [address] [place] Immature granulocytes (Bld) [#/Vol] 0.04 10*3/uL Normal <0.10 [facility] Comment on above: Order Comment: Speci men Type: BLOOD SPECIMEN Ordering Facility: [facility] Address: [address] [place] [address] Performed By: #### 5 7021-8 #### [id number] [address] [place] [address] [place] Immature granulocytes/100 WBC (Bld) 0.3 % Normal [facility] Comment on above: Order Comment: Speci men Type: BLOOD SPECIMEN Ordering Facility: [facility] Address: [address] [place] [address] Performed By: #### 5 7021-8 #### [facility] CLIA [id number] [address] [place] [address] [place] Lymphocytes (Bld) [#/Vol] 4.12 10*3/uL High 1.00-4.00 [facility] Comment on above: Order Comment: Speci men Type: BLOOD SPECIMEN Ordering Facility: [facility] Address: [address] [place] [address] Performed By: #### 5 7021-8 #### [facility] CLIA [id number] [address] [place] [address] [place] Lymphocytes/100 WBC (Bld) 33.4 % Normal [facility] Comment on above: Order Comment: Speci men Type: BLOOD SPECIMEN Ordering Facility: [facility] Address: [address] [place] [address] Performed By: #### 5 7021-8 #### [facility] CLIA [id number] [address] [place] [address] [place] MCH (RBC) [Entitic mass] 23.2 pg Low 26.0-34.0 [facility] Comment on above: Order Comment: Speci men Type: BLOOD SPECIMEN Ordering Facility: [facility] Address: [address] [place] [address] Performed By: #### 5 7021-8 #### [id number] [address] [place] [address] [place] MCHC (RBC) [Mass/Vol] 30.7 g/dL Normal 30.5-36.0 [facility] Comment on above: Order Comment: Speci men Type: BLOOD SPECIMEN Ordering Facility: [facility] Address: [address] [place] [address] Performed By: #### 5 7021-8 #### [facility] [id number] [address] [place] [address] [place] MCV (RBC) [Entitic vol] 75.4 fL Low 80.0-100.0 [facility] Comment on above: Order Comment: Speci men Type: BLOOD SPECIMEN Ordering Facility: [facility] Address: [address] [place] [address] Performed By: #### 5 7021-8 #### [facility] CLIA [id number] [address] [place] [address] [place] Monocytes (Bld) [#/Vol] 0.97 10*3/uL High <0.87 [facility] Comment on above: Order Comment: Speci men Type: BLOOD SPECIMEN Ordering Facility: [facility] Address: [address] [place] [address] Performed By: #### 5 7021-8 #### [facility] CLIA [id number] [address] [place] [address] [place] Monocytes/100 WBC (Bld) 7.9 % Normal [facility] Comment on above: Order Comment: Speci men Type: BLOOD SPECIMEN Ordering Facility: [facility] Address: [address] [place] [address] Performed By: #### 5 7021-8 #### [facility] CLIA [id number] [address] [place] [address] [place] Neutrophils (Bld) [#/Vol] 6.94 10*3/uL Normal 1.45-7.50 [facility] Comment on above: Order Comment: Speci men Type: BLOOD SPECIMEN Ordering Facility: [facility] Address: [address] [place] [address] Performed By: #### 5 7021-8 #### [facility] CLIA [id number] [address] [place] [address] [place] Neutrophils/100 WBC (Bld) 56.3 % Normal [facility] Comment on above: Order Comment: Speci men Type: BLOOD SPECIMEN Ordering Facility: [facility] Address: [address] [place] [address] Performed By: #### 5 7021-8 #### [facility] CLIA [id number] [address] [place] [address] [place] Nucleated RBC (Bld) [#/Vol] 10*3/uL Normal <0.01 [facility] Comment on above: Order Comment: Speci men Type: BLOOD SPECIMEN Ordering Facility: [facility] Address: [address] [place] [address] Performed By: #### 5 7021-8 #### [facility] CLIA [id number] [address] [place] [address] [place] Nucleated RBC/100 WBC (Bld) [Ratio] 0.0 /100 WBC Normal [facility] Comment on above: Order Comment: Speci men Type: BLOOD SPECIMEN Ordering Facility: [facility] Address: [address] [place] [address] Performed By: #### 5 7021-8 #### [facility] CLIA [id number] [address] [place] [address] [place] Platelet mean volume (Bld) [Entitic vol] 11.3 fL Normal 9.0-12.7 [facility] Comment on above: Order Comment: Speci men Type: BLOOD SPECIMEN Ordering Facility: [facility] Address: [address] [place] [address] Performed By: #### 5 7021-8 #### [facility] CLIA [id number] [address] [place] [address] [place] Platelets (Bld) [#/Vol] 403 10*3/uL High 150-400 [facility] Comment on above: Order Comment: Speci men Type: BLOOD SPECIMEN Ordering Facility: [facility] Address: [address] [place] [address] Performed By: #### 5 7021-8 #### [facility] CLIA [id number] [address] [place] [address] [place] RBC (Bld) [#/Vol] 5.61 10*6/uL Normal 4.20-6.00 [facility] Comment on above: Order Comment: Speci men Type: BLOOD SPECIMEN Ordering Facility: [facility] Address: [address] [place] [address] Performed By: #### 5 7021-8 #### [facility] CLIA [id number] [address] [place] [address] [place] WBC (Bld) [#/Vol] 12.33 10*3/uL High 3.70-11.00 [facility] Comment on above: Order Comment: Speci men Type: BLOOD SPECIMEN Ordering Facility: [facility] Address: [address] [place] [address], [place] [address] Performed By: #### 5 7021-8 #### [facility] CLIA [id number] [address] [place] [address] [place] Comprehensive metabolic 2000 panelon 10-10-2024 Albumin [Mass/Vol] 3.8 g/dL Low 3.9-4.9 [facility] Comment on above: Order Comment: Speci men Type: BLOOD SPECIMEN Ordering Facility: [facility] Address: [address] [place] [address], [place] [address] Performed By: #### 2 4323-8, 3016-3 #### [facility] CLIA [id number] [address] [place] #### [address]206-3 #### [facility] CLIA [id number] [address] [facility] CLIA [id number] [address] [place] [address] [place] ALP [Catalytic activity/Vol] 175 U/L High 38-113 [facility] Comment on above: Order Comment: Speci men Type: BLOOD SPECIMEN Ordering Facility: [facility] Address: [address] [facility], [place] [address] Performed By: #### 2 4323-8, 3016-3 #### [facility] CLIA [id number] [address] [place] #### 07010-0 #### [facility] CLIA [id number] [address] [facility] CLIA [id number] [address] [place] [address] [place] ALT With P-5'-P [Catalytic activity/Vol] 22 U/L Normal 10-54 [facility] Comment on above: Order Comment: Speci men Type: BLOOD SPECIMEN Ordering Facility: [facility] Address: [address] [place] [address], [place] [address] Performed By: #### 2 4323-8, 3016-3 #### [facility] CLIA [id number] [address] [place] #### 57618-9 #### [facility] CLIA [id number] [address] [place] [address] [place] [facility] CLIA [id number] [address] [place] [address] [place] Anion gap [Moles/Vol] 16 mmol/L High 8-15 [facility] Comment on above: Order Comment: Speci men Type: BLOOD SPECIMEN Ordering Facility: [facility] Address: [address] [place] [address], [place] [address] Performed By: #### 2 4323-8, 3016-3 #### [facility] CLIA [id number] [address] [place] #### 45794-1 #### [facility] CLIA [id number] [address] [place] [address] [place] [facility] CLIA [id number] [address] [place] [address] [place] With P-5'-P [Catalytic activity/Vol] 16 U/L Normal 14-40 [facility] Comment on above: Order Comment: Speci men Type: BLOOD SPECIMEN Ordering Facility: [facility] Address: [facility] [facility], [place] [address] Performed By: #### 2 4323-8, 3016-3 #### [facility] CLIA [id number] [address] [place] #### 55810-5 #### [facility] CLIA [id number] [address] [place] [address] [place] [facility] CLIA [id number] [address] [place] [address] [place] Bilirubin [Mass/Vol] 0.2 mg/dL Normal 0.2-1.3 [facility] Comment on above: Order Comment: Speci men Type: BLOOD SPECIMEN Ordering Facility: [facility] Address: [address] [place] [address], [place] [address] Performed By: #### 2 4323-8, 3016-3 #### [facility] CLIA [id number] [address] [place] #### 12982-0 #### [facility] CLIA [id number] [address] [place] [address] [place] [facility] CLIA [id number] [address] [place] [address] [place] Calcium [Mass/Vol] 8.9 mg/dL Normal 8.5-10.2 [facility] Comment on above: Order Comment: Speci men Type: BLOOD SPECIMEN Ordering Facility: [facility] Address: [facility] [facility], [place] [address] Performed By: #### 2 4323-8, 3016-3 #### [facility] CLIA [id number] [address] [place] #### 35384-2 #### [facility] CLIA [id number] [address] [place] [address] [place] [facility] CLIA [id number] [address] [place] [address] [place] Chloride [Moles/Vol] 88 mmol/L Low 98-107 [facility] Comment on above: Order Comment: Speci men Type: BLOOD SPECIMEN Ordering Facility[facility] Address: [address] [facility], [place] [address] Performed By: #### 2 3-8, 6-3 #### [facility] [facility] CLIA [id number] [address] #### 83135-7 #### [facility] CLIA [id number] [address] [facility] CLIA [id number] [address] [place] CO2 [Moles/Vol] 23 mmol/L Normal 22-30 [facility] Comment on above: Order Comment: Speci men Type: BLOOD SPECIMEN Ordering Facility: [facility] Address: [address] [place] [address], [place] [address] Performed By: #### 2 8, 3015-3 #### [facility] CLIA [id number] [address] #### 34734-4 #### [facility] CLIA [id number] [address] STATES OF [facility] CLIA [id number] [place] [address] Creatinine [Mass/Vol] 0.64 mg/dL Low 0.73-1.22 [facility] Comment on above: Order Comment: Speci men Type: BLOOD SPECIMEN Ordering Facility: [facility] Address: [address] [place] [address], [place] [address] Performed By: #### 2 3-8, 6-3 #### [facility] CLIA [id number] [address] OF [place] #### 28036-1 #### [facility] CLIA [id number] [address] [place] [facility] CLIA [id number] [address] [place] [address] [place] Creatinine and Glomerular filtration rate.predicted panel (S/P/Bld) 133 mL/min/1.73m??? Normal >=60 [facility] Comment on above: Order Comment: Noemi adrian Type: BLOOD SPECIMEN Ordering Facility: [facility] Address: [address] [place] [address], [place] [address] Result Comment: Tara mated Glomerular Filtration Rate [...] [facility] CLIA [id number] [address] #### 14733-1 #### [facility] CLIA [id number] [address] STATES OF [facility] CLIA [id number] 721 [place] [address] [place] Glucose [Mass/Vol] 659 mg/dL High 74-99 [facility] Comment on above: Order Comment: Noemi adrian Type: BLOOD SPECIMEN Ordering Facility: [facility] Address: [address] [place] [address], [place] [address] Result Comment: The [place] Diabetes Association (ADA) provides guidance for cutoff [...] Standards of Medical Care in Diabetes 2016, [place] Diabetes Association. Diabetes Care. 2016.39(Suppl 1). Performed By: #### 2 4323-8, 3016-3 #### [facility] CLIA [id number] [address] #### 71003-2 #### [facility] CLIA [id number] [address] [place] [address] [place] [facility] CLIA [id number] [address] [place] [address] [place] Potassium [Moles/Vol] 4.5 mmol/L Normal 3.7-5.1 [facility] Comment on above: Order Comment: Speci men Type: BLOOD SPECIMEN Ordering Facility: [facility] Address: [address] [place] [address] Performed By: #### 2 4323-8, 3016-3 #### [facility] CLIA [id number] [address] #### 36393-5 #### [facility] CLIA [id number] [address] [place] [address] [place] [facility] CLIA [id number] [place] [address] [place] Protein [Mass/Vol] 6.9 g/dL Normal 6.3-8.0 [facility] Comment on above: Order Comment: Speci men Type: BLOOD SPECIMEN Ordering Facility: [facility] Address: [address] [place] [address] Performed By: #### 2 4323-8, 3016-3 #### [facility] CLIA [id number] [address] [place] #### 77988-3 #### [facility] CLIA [id number] [address] [place] [address] [place] [facility] CLIA [id number] [address] [place] [address] [place] Sodium [Moles/Vol] 127 mmol/L Low 136-144 [facility] Comment on above: Order Comment: Speci men Type: BLOOD SPECIMEN Ordering Facility: [facility] Address: [address] [place] [address], [place] [address] Performed By: #### 2 4323-8, 3016-3 #### [facility] CLIA [id number] [address] [place] #### 22329-2 #### [facility] CLIA [id number] [address] [place] [address] [place] [facility] CLIA [id number] 721 [place] [address] [place] Urea nitrogen [Mass/Vol] 17 mg/dL Normal 9-24 [facility] Comment on above: Order Comment: Speci men Type: BLOOD SPECIMEN Ordering Facility: [facility] Address: [address] [place] [address], [place] [address] Performed By: #### 2 4323-8, 3016-3 #### [facility] CLIA [id number] [address] [place] #### 34109-7 #### [facility] CLIA [id number] [address] [place] [address] [place] [facility] CLIA [id number] [address] [place] [address] [place] Lipid 1996 panelon 5 Cholesterol [Mass/Vol] 177 mg/dL Normal <200 [facility] Comment on above: Order Comment: Speci men Type: BLOOD SPECIMEN Ordering Facility: [facility] Address: [facility], [place] [address] Result Comment: <200 mg/dL, Desirable 200-239 mg/dL, Borderline high >239 mg/dL, High Performed By: #### 2 4323-8, 3016-3 #### [facility] CLIA [id number] [address] [place] [address] [place] #### 90354-0 #### [facility] CLIA [id number] [address] STATES OF [facility] CLIA [id number] [address] Cholesterol in HDL [Mass/Vol] 46 mg/dL Normal >39 [facility] Comment on above: Order Comment: Speci men Type: BLOOD SPECIMEN Ordering Facility: [facility] Address: [address] [place] [address], [place] [address] Result Comment: 40-5 9 mg/dL, Acceptable >59 mg/dL, High: Negative risk factor for coronary heart disease <40 mg/dL, Low: Positive risk factor for coronary heart disease Performed By: #### 2 4323-8, 6-3 #### [facility] CLIA [id number] [address] OF [facility] #### 95351-5 #### [facility] CLIA [id number] [address] STATES OF [facility] CLIA [id number] [address] [place] [address] Cholesterol in LDL [Mass/Vol] 86 mg/dL Normal <100 [facility] Comment on above: Order Comment: Speci men Type: BLOOD SPECIMEN Ordering Facility: [facility] Address: [address] [place] [address], [place] [address] Result Comment: <100 mg/dL, Optimal 100-129 mg/dL, Near optimal/above optimal 130-159 mg/dL, Borderline high 160-189 mg/dL, High >189 mg/dL, Very high Secondary prevention optimal LDL Cholesterol levels are recommended to be < 70 mg/dL Performed By: #### 2 4323-8, 3016-3 #### [facility] CLIA [id number] [address] [place] #### 73653-4 #### [facility] CLIA [id number] [address] [place] [facility] CLIA [id number] 721 [place] [address] [place] Cholesterol in LDL/Cholesterol in HDL [Mass ratio] 1.87 {ratio} Normal <2.54 [facility] Comment on above: Order Comment: Speci men Type: BLOOD SPECIMEN Ordering Facility: [facility] Address: [address] [place] [address], [place] [address] Result Comment: Philomena kirkland: 1. National Cholesterol Education Program ATP III Guideline At-A-Glance Quick Desk Reference: National Heart, Lung, and Blood Adel. National Institutes of Health. 2001: NIH Publication No. 01-3305. 2. An International Atherosclerosis Society position paper: global recommendations for the management of dyslipidemia: executive summary, Atherosclerosis. 2014: 232(2):410-413. Performed By: #### 2 4323-8, 3016-3 #### [facility] CLIA [id number] [address] OF [place] #### 97291-4 #### [facility] CLIA [id number] [address] CLIA [id number] [address] [place] [address] [place] Cholesterol in VLDL [Mass/Vol] 45 mg/dL High <30 [facility] Comment on above: Order Comment: Speci men Type: BLOOD SPECIMEN Ordering Facility[facility] Address: [address] [place] [address], [place] [address] Performed By: #### 2 4323-8, 3016-3 #### [facility] CLIA [id number] [address] OF [place] #### 84435-1 #### [facility] CLIA [id number] [address] [place] [facility] CLIA [id number] 721 [place] [address] [place] Cholesterol non HDL [Mass/Vol] 131 mg/dL High <130 [facility] Comment on above: Order Comment: Speci men Type: BLOOD SPECIMEN Ordering Facility: [facility] Address: [address] [place] [address], [place] [address] Result Comment: <130 mg/dL, Optimal 130-159 mg/dL, Near optimal/above optimal 160-189 mg/dL, Borderline high 190-219 mg/dL, High >219 mg/dL, Very high Secondary prevention optimal non HDL Cholesterol levels are recommended to be <100 mg/dL Performed By: #### 2 4323-8, 3016-3 #### [facility] CLIA [id number] [address] #### 43974-6 #### [facility] CLIA [id number] [address] STATES [facility] CLIA [id number] [place] [address] Cholesterol.total/Shanon sterol in HDL [Mass ratio] 3.85 {ratio} Normal <5.10 [facility] Comment on above: Order Comment: Speci men Type: BLOOD SPECIMEN Ordering Facility: [facility] Address: [address] [place] [address], [place] [address] Performed By: #### 2 4323-8, 6-3 #### [facility] CLIA [id number] [address] #### 41795-9 #### [facility] CLIA [id number] [address] CLIA [id number] [address] [place] [address] FASTING TIME 12 hrs Normal [facility] Comment on above: Order Comment: Speci men Type: BLOOD SPECIMEN Ordering Facility: [facility] Address: [address] [place] [address], [place] [address] Performed By: #### 2 4323-8, 6-3 #### [facility] CLIA [id number] [address] OF [place] #### 51701-8 #### [facility] CLIA [id number] [address] CLIA [id number] [address] [place] [address] STATES [place] [facility] Triglyceride [Mass/Vol] 226 mg/dL High <150 [facility] Comment on above: Order Comment: Speci men Type: BLOOD SPECIMEN Ordering Facility: [facility] Address: [address] [place] [address] Result Comment: <150 mg/dL, Normal 150-199 mg/dL, Borderline high 200-499 mg/dL, High >499 mg/dL, Very high Performed By: #### 2 4323-8, 3016-3 #### [facility] CLIA [id number] [address] #### 94715-4 #### [facility] CLIA [id number] [address] [facility] CLIA [id number] [address] [place] [address] [place] TSH SerPl-aCncon 10-10-2024 TSH Qn 1.060 m[IU]/L Normal 0.270-4.20 0 [facility] Comment on above: Order Comment: Speci men Type: BLOOD SPECIMEN Ordering Facility: [facility] Address: [address] [place] [address], [place] [address] Performed By: #### 2 4323-8, 3016-3 #### [facility] CLIA [id number] [address] OF [facility] #### 20026-9 #### [facility] CLIA [id number] [address] STATES OF [facility] CLIA [id number] [address] [place] [address] [place] Absolute lymphocyte countOrd ered By: Dr. Zarate on 01-03-2023 Lymphocytes Auto (Unsp spec) [#/Vol] 5.11 10*3/uL 0.83-4.51 [facility] Basophil percentageOrdered B y: Dr. Zarate on 01-03-2023 Basophils/100 WBC (Bld) 0.6 % 0-1 [facility] Chloride [Moles/Vol] 97 mmol/L 98-107 [facility] Eosinophils/100 WBC (Bld) 3.2 % 0-5 [facility] Glucose [Mass/Vol] 504 mg/dL 74-106 [facility] Comment on above: Glucose result great er than or equal to 200 mg/dLsuggests DIABETES MELLITUS per A.D.A. criteria. Neutrophils (Bld) [#/Vol] 5.5 10*3/uL 2.0-7.7 [facility] Neutrophils/100 WBC (Bld) 45.8 % 47-70 [facility] Potassium [Moles/Vol] 4.7 mmol/L 3.5-5.1 [facility] Sodium [Moles/Vol] 132 mmol/L 136-145 [facility] WBC (Bld) [#/Vol] 12.1 10*3/uL 4.4-11.0 [facility] Blood erythrocytes count (nu mber/volume)Ordered By: Dr. Zarate on 01-03-2023 RBC (Bld) [#/Vol] 4.87 10*6/uL 4.6-6.2 [facility] Blood hemoglobin measurement (mass/volume)Ordered By: Dr. Zarate on 01-03-2023 Hemoglobin (Bld) [Mass/Vol] 12.7 g/dL 13.0-16.5 [facility] Blood lymphocytes/100 leukoc ytesOrdered By: Dr. Zarate on 01-03-2023 Lymphocytes/100 WBC (Bld) 42.3 % 19-41 [facility] Blood manual differential co mment interpretation (narrative result)Ordered By: Dr. Zarate on 01-03-2023 Manual differential comment Gigi (Bld) [Interp] SCANNED [facility] Comment on above: LYMPHOCYTOSIS NOTED Blood monocytes/100 leukocyt esOrdered By: [address] Zarate on 01-03-2023 Monocytes/100 WBC (Bld) 7.8 % 0-10 [facility] Blood platelet mean volumeOr dered By: Dr. Zarate on 01-03-2023 Platelet mean volume (Bld) [Entitic vol] 10.6 fL 6.2-12.0 [facility] Determination of erythrocyte mean corpuscular volume (MCV)Ordered By: Dr. Zarate on 01-03-2023 MCV (RBC) [Entitic vol] 81.9 fL 80-94 [facility] Glucose Glucometer (BldC) [M ass/Vol]Ordered By: Dr. Zarate on 01-03-2023 Glucose [Mass/Vol] 383 mg/dL 74-106 [facility] Comment on above: MANAGEMENT OF PATIEN T CARE PER NURSING PROTOCOL Hematocrit Auto (Bld) [Volum e fraction]Ordered By: Dr. Zarate on 01-03-2023 Hematocrit (Bld) [Volume fraction] 39.9 % 40-54 [facility] - Chemistry and C hemistry - challengeOrdered By: Dr. Zarate on 01-03-2023 CO2 [Moles/Vol] 23.0 mmol/L 21.0-32.0 [facility] Urea nitrogen/Creatinine [Mass ratio] 17.2 mg/mg 10-20 [facility] - Hematology and Cell countsOrdered By: Dr. Zarate on 01-03-2023 Erythrocyte distribution width (RBC) [Entitic vol] 41.9 fL 35.1-43.9 [facility] Erythrocyte distribution width (RBC) [Ratio] 14.3 % 11.6-14.6 [facility] Immature granulocytes/100 WBC (Bld) 0.300 % 0.0-0.9 [facility] Comment on above: IG% - Immature Granu locytes (promyelocytes, myelocytes and metamyelocytes) > 1% indicates that a LEFT SHIFT is Present. MCH (RBC) [Entitic mass] 26.1 pg 27.0-32.0 [facility] Nucleated RBC/100 WBC (Bld) [Ratio] 0 % 0-5 [facility] MCHC Auto (RBC) [Mass/Vol]Or dered By: Dr. Zarate on 01-03-2023 MCHC (RBC) [Mass/Vol] 31.8 g/dL 32-36 [facility] No Panel InformationOrdered By: Dr. Zarate on 01-03-2023 Estimated Creatinine Clearance Calc 122.45 ml/min [facility] Estimated GFR (MDRD) Amer 136 mL/min >60 [facility] Comment on above: GFR Calc Estimated GFR (MDRD) Non-Af Amer 113 mL/min >60 [facility] Comment on above: Non- GFR Calc Troponin I High Sensitivity 4 pg/mL 3.0-78.0 [facility] Comment on above: Critical Result(s) C alled at: 23:19:17 01/03/2023 by: MICHAEL COUGHLIN RN (ED) Results read back by same. Please Note: New Test Units and Gender Specific Reference Ranges. For more information see Policy Stat Procedure [place] High Sensitivity Troponin (TNIH) and attachments. Platelets bldOrdered By: Dr. Zarate on 01-03-2023 Platelets (Bld) [#/Vol] 357 10*3/uL 150-450 [facility] Serum or plasma calcium koby urement (mass/volume)Ordered By: Dr. Zarate on 01-03-2023 Calcium [Mass/Vol] 8.6 mg/dL 8.5-10.1 [facility] Serum or plasma creatinine m easurement (mass/volume)Ordered By: Dr. Zarate on 01-03-2023 Creatinine [Mass/Vol] 0.87 mg/dL 0.70-1.30 [facility] Comment on above: The validity of the calculated GFR & GFRAA in patients over 70 years has not been determined. Clinical correlation is essential. Serum or plasma urea nitroge n measurement (mass/volume)Ordered By: Dr. Zarate on 01-03-2023 Urea nitrogen [Mass/Vol] 15 mg/dL 7-18 [facility] Thin prep Papanicolaou smear with manual screeningOrdered By: Dr. Zarate on 01-03-2023 Thin prep Papanicolaou smear with manual screening 12 5-15 [facility] Absolute lymphocyte countOrd ered By: Dr. Lynn on 12-09-2022 Lymphocytes Auto (Unsp spec) [#/Vol] 4.06 10*3/uL 0.83-4.51 [facility] Basophil percentageOrdered B y: Dr. Lynn on 12-09-2022 Basophils/100 WBC (Bld) 0.6 % 0-1 [facility] Chloride [Moles/Vol] 96 mmol/L 98-107 [facility] Eosinophils/100 WBC (Bld) 1.9 % 0-5 [facility] Glucose [Mass/Vol] 396 mg/dL 74-106 [facility] Comment on above: Glucose result great er than or equal to 200 mg/dLsuggests DIABETES MELLITUS per A.D.A. criteria. Neutrophils (Bld) [#/Vol] 4.6 10*3/uL 2.0-7.7 [facility] Neutrophils/100 WBC (Bld) 47.9 % 47-70 [facility] Potassium [Moles/Vol] 5.0 mmol/L 3.5-5.1 [facility] Sodium [Moles/Vol] 133 mmol/L 136-145 [facility] WBC (Bld) [#/Vol] 9.6 10*3/uL 4.4-11.0 [facility] Blood erythrocytes count (nu mber/volume)Ordered By: Dr. Lynn on 12-09-2022 RBC (Bld) [#/Vol] 6.66 10*6/uL 4.6-6.2 [facility] Blood hemoglobin measurement (mass/volume)Ordered By: Dr. Lynn on 12-09-2022 Hemoglobin (Bld) [Mass/Vol] 17.0 g/dL 13.0-16.5 [facility] Blood lymphocytes/100 leukoc ytesOrdered By: Dr. Lynn on 12-09-2022 Lymphocytes/100 WBC (Bld) 42.1 % 19-41 [facility] Blood monocytes/100 leukocyt esOrdered By: Dr. Lynn on 12-09-2022 Monocytes/100 WBC (Bld) 7.3 % 0-10 [facility] Blood platelet mean volumeOr dered By: Dr. Lynn on 12-09-2022 Platelet mean volume (Bld) [Entitic vol] 10.8 fL 6.2-12.0 [facility] Determination of erythrocyte mean corpuscular volume (MCV)Ordered By: Dr. Lynn on 12-09-2022 MCV (RBC) [Entitic vol] 79.4 fL 80-94 [facility] HCO3 (BldA) [Moles/Vol]Order ed By: Dr. Lynn on 12-09-2022 HCO3 (Bld) [Moles/Vol] 21 mmol/L 22-26 [facility] Hematocrit Auto (Bld) [Volum e fraction]Ordered By: Dr. Lynn on 12-09-2022 Hematocrit (Bld) [Volume fraction] 52.9 % 40-54 [facility] - Chemistry and C hemistry - challengeOrdered By: Dr. Lynn on 12-09-2022 CO2 [Moles/Vol] 22 mmol/L 23-33 [facility] CO2 [Moles/Vol] 28.0 mmol/L 21.0-32.0 [facility] Natriuretic peptide B (Bld) [Mass/Vol] 2.7 pg/mL 0-100 [facility] Urea nitrogen/Creatinine [Mass ratio] 16.4 mg/mg 10-20 [facility] - Hematology and Cell countsOrdered By: Dr. Lynn on 12-09-2022 Erythrocyte distribution width (RBC) [Entitic vol] 38.5 fL 35.1-43.9 [facility] Erythrocyte distribution width (RBC) [Ratio] 13.4 % 11.6-14.6 [facility] Immature granulocytes/100 WBC (Bld) 0.200 % 0.0-0.9 [facility] Comment on above: IG% - Immature Granu locytes (promyelocytes, myelocytes and metamyelocytes) > 1% indicates that a LEFT SHIFT is Present. MCH (RBC) [Entitic mass] 25.5 pg 27.0-32.0 [facility] Nucleated RBC/100 WBC (Bld) [Ratio] 0 % 0-5 [facility] MCHC Auto (RBC) [Mass/Vol]Or dered By: Dr. Lynn on 12-09-2022 MCHC (RBC) [Mass/Vol] 32.1 g/dL 32-36 [facility] No Panel InformationOrdered By: Dr. Lynn on 12-09-2022 Bed Mix Venous Bld PCO2 at Pat Temp 32.1 mmHg 41-51 [facility] Blood Gas Specimen Type JAIDEN [facility] Venous Blood Base Excess -3 mmol/L -1.0-3.5 [facility] D-Dimer Quantitative (PE/DVT) < 0.27 FEU/ug/m 0.27-0.49 [facility] Comment on above: NORMAL D-Dimer level (<0.50) indicates no DVT or PE. Estimated Creatinine Clearance Calc 91.04 ml/min [facility] Estimated GFR (MDRD) Amer 104 mL/min >60 [facility] Comment on above: GFR Calc Estimated GFR (MDRD) Non-Af Amer 86 mL/min >60 [facility] Comment on above: Non- GFR Calc Troponin I High Sensitivity 4 pg/mL 3.0-78.0 [facility] Comment on above: Please Note: New Nayla t Units and Gender Specific Reference Ranges. For more information see Policy Stat Procedure [place] High Sensitivity Troponin (TNIH) and attachments. PO2 venousOrdered By: Dr. Marry baxter on 12-09-2022 Oxygen (BldV) [Partial pressure] 53 mm[Hg] 25-40 [facility] Platelets bldOrdered By: Dr. Lynn on 12-09-2022 Platelets (Bld) [#/Vol] 405 10*3/uL 150-450 [facility] Serum or plasma acetone koby urement (mass/volume)Ordered By: Dr. Lynn on 12-09-2022 Acetone [Mass/Vol] Negative NEG [facility] Serum or plasma calcium koby urement (mass/volume)Ordered By: Dr. Lynn on 12-09-2022 Calcium [Mass/Vol] 10.6 mg/dL 8.5-10.1 [facility] Serum or plasma creatinine m easurement (mass/volume)Ordered By: Dr. Lynn on 12-09-2022 Creatinine [Mass/Vol] 1.10 mg/dL 0.70-1.30 [facility] Comment on above: The validity of the calculated GFR & GFRAA in patients over 70 years has not been determined. Clinical correlation is essential. Serum or plasma urea nitroge n measurement (mass/volume)Ordered By: Dr. Lynn on 12-09-2022 Urea nitrogen [Mass/Vol] 18 mg/dL 7-18 [facility] Thin prep Papanicolaou smear with manual screeningOrdered By: Dr. Lynn on 12-09-2022 Thin prep Papanicolaou smear with manual screening 9 5-15 [facility] Vital signsOrdered By: Dr. Vicky coello on 12-09-2022 Oxygen saturation in Blood 88 % 50-70 [facility] pH measurementOrdered By: Dr Shin Lynn on 12-09-2022 pH (Unsp spec) 7.43 [pH] 7.32-7.42 [facility] Absolute lymphocyte countOrd ered By: ED PROVIDER on 12-03-2022 Lymphocytes Auto (Unsp spec) [#/Vol] 3.71 10*3/uL 0.83-4.51 [facility] Basophil percentageOrdered B y: ED PROVIDER on 12-03-2022 Basophils/100 WBC (Bld) 0.4 % 0-1 [facility] Eosinophils/100 WBC (Bld) 2.0 % 0-5 [facility] Neutrophils (Bld) [#/Vol] 8.6 10*3/uL 2.0-7.7 [facility] Neutrophils/100 WBC (Bld) 62.3 % 47-70 [facility] WBC (Bld) [#/Vol] 13.8 10*3/uL 4.4-11.0 [facility] Basophil percentageOrdered B y: Dr. Calvillo on 12-03-2022 Chloride [Moles/Vol] 105 mmol/L 98-107 [facility] Glucose [Mass/Vol] 64 mg/dL 74-106 [facility] Potassium [Moles/Vol] 3.6 mmol/L 3.5-5.1 [facility] Sodium [Moles/Vol] 138 mmol/L 136-145 [facility] Blood erythrocytes count (nu mber/volume)Ordered By: ED PROVIDER on 12-03-2022 RBC (Bld) [#/Vol] 5.14 10*6/uL 4.6-6.2 [facility] Blood hemoglobin measurement (mass/volume)Ordered By: ED PROVIDER on 12-03-2022 Hemoglobin (Bld) [Mass/Vol] 13.2 g/dL 13.0-16.5 [facility] Blood lymphocytes/100 leukoc ytesOrdered By: ED PROVIDER on 12-03-2022 Lymphocytes/100 WBC (Bld) 26.9 % 19-41 [facility] Blood monocytes/100 leukocyt esOrdered By: ED PROVIDER on 12-03-2022 Monocytes/100 WBC (Bld) 8.0 % 0-10 [facility] Blood platelet mean volumeOr dered By: ED PROVIDER on 12-03-2022 Platelet mean volume (Bld) [Entitic vol] 10.9 fL 6.2-12.0 [facility] Determination of erythrocyte mean corpuscular volume (MCV)Ordered By: ED PROVIDER on 12-03-2022 MCV (RBC) [Entitic vol] 84.0 fL 80-94 [facility] Hematocrit Auto (Bld) [Volum e fraction]Ordered By: ED PROVIDER on 12-03-2022 Hematocrit (Bld) [Volume fraction] 43.2 % 40-54 [facility] - Chemistry and C hemistry - challengeOrdered By: Dr. Calvillo on 12-03-2022 CO2 [Moles/Vol] 28.0 mmol/L 21.0-32.0 [facility] Urea nitrogen/Creatinine [Mass ratio] 16.6 mg/mg 10-20 [facility] Laboratory - Hematology and Cell countsOrdered By: ED PROVIDER on 12-03-2022 Erythrocyte distribution width (RBC) [Entitic vol] 41.1 fL 35.1-43.9 [facility] Erythrocyte distribution width (RBC) [Ratio] 13.4 % 11.6-14.6 [facility] Immature granulocytes/100 WBC (Bld) 0.400 % 0.0-0.9 [facility] Comment on above: IG% - Immature Granu locytes (promyelocytes, myelocytes and metamyelocytes) > 1% indicates that a LEFT SHIFT is Present. MCH (RBC) [Entitic mass] 25.7 pg 27.0-32.0 [facility] Nucleated RBC/100 WBC (Bld) [Ratio] 0 % 0-5 [facility] MCHC Auto (RBC) [Mass/Vol]Or dered By: ED PROVIDER on 12-03-2022 MCHC (RBC) [Mass/Vol] 30.6 g/dL 32-36 [facility] No Panel InformationOrdered By: Dr. Calvillo on 12-03-2022 D-Dimer Quantitative (PE/DVT) 0.40 FEU/ug/m 0.27-0.49 [facility] Comment on above: NORMAL D-Dimer level (<0.50) indicates no DVT or PE. Estimated Creatinine Clearance Calc 159.00 ml/min [facility] Estimated GFR (MDRD) Amer 187 mL/min >60 [facility] Comment on above: GFR Calc Estimated GFR (MDRD) Non-Af Amer 155 mL/min >60 [facility] Comment on above: Non- GFR Calc Troponin I High Sensitivity 3 pg/mL 3.0-78.0 [facility] Comment on above: Please Note: New Nayla t Units and Gender Specific Reference Ranges. For more information see Policy Stat Procedure [place] High Sensitivity Troponin (TNIH) and attachments. Platelets bldOrdered By: ED PROVIDER on 12-03-2022 Platelets (Bld) [#/Vol] 348 10*3/uL 150-450 [facility] Serum or plasma calcium koby urement (mass/volume)Ordered By: Dr. Calvillo on 12-03-2022 Calcium [Mass/Vol] 8.9 mg/dL 8.5-10.1 [facility] Serum or plasma creatinine m easurement (mass/volume)Ordered By: Dr. Calvillo on 12-03-2022 Creatinine [Mass/Vol] 0.66 mg/dL 0.70-1.30 [facility] Comment on above: The validity of the calculated GFR & GFRAA in patients over 70 years has not been determined. Clinical correlation is essential. Serum or plasma urea nitroge n measurement (mass/volume)Ordered By: Dr. Calvillo on 12-03-2022 Urea nitrogen [Mass/Vol] 11 mg/dL 7-18 [facility] Thin prep Papanicolaou smear with manual screeningOrdered By: Dr. Calvillo on 12-03-2022 Thin prep Papanicolaou smear with manual screening 5 5-15 [facility] Absolute lymphocyte countOrd ered By: ED PROVIDER on 11-17-2022 Lymphocytes Auto (Unsp spec) [#/Vol] 4.55 10*3/uL 0.83-4.51 [facility] Basophil percentageOrdered B y: ED PROVIDER on 11-17-2022 Basophils/100 WBC (Bld) 0.5 % 0-1 [facility] Chloride [Moles/Vol] 103 mmol/L 98-107 [facility] Eosinophils/100 WBC (Bld) 2.8 % 0-5 [facility] Glucose [Mass/Vol] 278 mg/dL 74-106 [facility] Comment on above: Glucose result great er than or equal to 200 mg/dLsuggests DIABETES MELLITUS per A.D.A. criteria. Neutrophils (Bld) [#/Vol] 5.8 10*3/uL 2.0-7.7 [facility] Neutrophils/100 WBC (Bld) 49.8 % 47-70 [facility] Potassium [Moles/Vol] 3.8 mmol/L 3.5-5.1 [facility] Sodium [Moles/Vol] 134 mmol/L 136-145 [facility] WBC (Bld) [#/Vol] 11.7 10*3/uL 4.4-11.0 [facility] Blood erythrocytes count (nu mber/volume)Ordered By: ED PROVIDER on 11-17-2022 RBC (Bld) [#/Vol] 5.10 10*6/uL 4.6-6.2 [facility] Blood hemoglobin measurement (mass/volume)Ordered By: ED PROVIDER on 11-17-2022 Hemoglobin (Bld) [Mass/Vol] 13.3 g/dL 13.0-16.5 [facility] Blood lymphocytes/100 leukoc ytesOrdered By: ED PROVIDER on 11-17-2022 Lymphocytes/100 WBC (Bld) 38.9 % 19-41 [facility] Blood monocytes/100 leukocyt esOrdered By: ED PROVIDER on 11-17-2022 Monocytes/100 WBC (Bld) 7.7 % 0-10 [facility] Blood platelet mean volumeOr dered By: ED PROVIDER on 11-17-2022 Platelet mean volume (Bld) [Entitic vol] 10.9 fL 6.2-12.0 [facility] Determination of erythrocyte mean corpuscular volume (MCV)Ordered By: ED PROVIDER on 11-17-2022 MCV (RBC) [Entitic vol] 80.6 fL 80-94 [facility] Hematocrit Auto (Bld) [Volum e fraction]Ordered By: ED PROVIDER on 11-17-2022 Hematocrit (Bld) [Volume fraction] 41.1 % 40-54 [facility] Laboratory - Chemistry and C hemistry - challengeOrdered By: ED PROVIDER on 11-17-2022 CO2 [Moles/Vol] 26.0 mmol/L 21.0-32.0 [facility] Urea nitrogen/Creatinine [Mass ratio] 17.0 mg/mg 10-20 [facility] - Hematology and Cell countsOrdered By: ED PROVIDER on 11-17-2022 Erythrocyte distribution width (RBC) [Entitic vol] 37.6 fL 35.1-43.9 [facility] Erythrocyte distribution width (RBC) [Ratio] 12.8 % 11.6-14.6 [facility] Immature granulocytes/100 WBC (Bld) 0.300 % 0.0-0.9 [facility] Comment on above: IG% - Immature Granu locytes (promyelocytes, myelocytes and metamyelocytes) > 1% indicates that a LEFT SHIFT is Present. MCH (RBC) [Entitic mass] 26.1 pg 27.0-32.0 [facility] Nucleated RBC/100 WBC (Bld) [Ratio] 0 % 0-5 [facility] MCHC Auto (RBC) [Mass/Vol]Or dered By: ED PROVIDER on 11-17-2022 MCHC (RBC) [Mass/Vol] 32.4 g/dL 32-36 [facility] No Panel InformationOrdered By: ED PROVIDER on 11-17-2022 Estimated Creatinine Clearance Calc 127.57 ml/min [facility] Estimated GFR (MDRD) Amer 159 mL/min >60 [facility] Comment on above: GFR Calc Estimated GFR (MDRD) Non-Af Amer 131 mL/min >60 [facility] Comment on above: Non- GFR Calc Troponin I High Sensitivity < 3 pg/mL 3.0-78.0 [facility] Comment on above: Please Note: New Nayla t Units and Gender Specific Reference Ranges. For more information see Policy Stat Procedure [place] High Sensitivity Troponin (TNIH) and attachments. Platelets bldOrdered By: ED PROVIDER on 11-17-2022 Platelets (Bld) [#/Vol] 304 10*3/uL 150-450 [facility] Serum or plasma calcium koby urement (mass/volume)Ordered By: ED PROVIDER on 11-17-2022 Calcium [Mass/Vol] 9.1 mg/dL 8.5-10.1 [facility] Serum or plasma creatinine m easurement (mass/volume)Ordered By: ED PROVIDER on 11-17-2022 Creatinine [Mass/Vol] 0.76 mg/dL 0.70-1.30 [facility] Comment on above: The validity of the calculated GFR & GFRAA in patients over 70 years has not been determined. Clinical correlation is essential. Serum or plasma urea nitroge n measurement (mass/volume)Ordered By: ED PROVIDER on 11-17-2022 Urea nitrogen [Mass/Vol] 13 mg/dL 7-18 [facility] Thin prep Papanicolaou smear with manual screeningOrdered By: ED PROVIDER on 11-17-2022 Thin prep Papanicolaou smear with manual screening 5 5-15 [facility] Absolute lymphocyte countOrd ered By: Dr. Palomino on 10-13-2022 Lymphocytes Auto (Unsp spec) [#/Vol] 3.87 10*3/uL 0.83-4.51 [facility] Basophil percentageOrdered B y: Dr. Palomino on 10-13-2022 Basophils/100 WBC (Bld) 0.8 % 0-1 [facility] Chloride [Moles/Vol] 105 mmol/L 98-107 [facility] Eosinophils/100 WBC (Bld) 4.3 % 0-5 [facility] Glucose [Mass/Vol] 243 mg/dL 74-106 [facility] Comment on above: Glucose result great er than or equal to 200 mg/dLsuggests DIABETES MELLITUS per A.D.A. criteria. Neutrophils (Bld) [#/Vol] 3.8 10*3/uL 2.0-7.7 [facility] Neutrophils/100 WBC (Bld) 43.5 % 47-70 [facility] Potassium [Moles/Vol] 3.4 mmol/L 3.5-5.1 [facility] Sodium [Moles/Vol] 140 mmol/L 136-145 [facility] WBC (Bld) [#/Vol] 8.8 10*3/uL 4.4-11.0 [facility] Blood erythrocytes count (nu mber/volume)Ordered By: Dr. Palomino on 10-13-2022 RBC (Bld) [#/Vol] 5.14 10*6/uL 4.6-6.2 [facility] Blood hemoglobin measurement (mass/volume)Ordered By: Dr. Palomino on 10-13-2022 Hemoglobin (Bld) [Mass/Vol] 13.3 g/dL 13.0-16.5 [facility] Blood lymphocytes/100 leukoc ytesOrdered By: Dr. Palomino on 10-13-2022 Lymphocytes/100 WBC (Bld) 44.1 % 19-41 [facility] Blood monocytes/100 leukocyt esOrdered By: Dr. Palomino on 10-13-2022 Monocytes/100 WBC (Bld) 7.2 % 0-10 [facility] Blood platelet mean volumeOr dered By: Dr. Palomino on 10-13-2022 Platelet mean volume (Bld) [Entitic vol] 10.4 fL 6.2-12.0 [facility] Determination of erythrocyte mean corpuscular volume (MCV)Ordered By: Dr. Palomino on 10-13-2022 MCV (RBC) [Entitic vol] 83.7 fL 80-94 [facility] Hematocrit Auto (Bld) [Volum e fraction]Ordered By: Dr. Palomino on 10-13-2022 Hematocrit (Bld) [Volume fraction] 43.0 % 40-54 [facility] - Chemistry and C hemistry - challengeOrdered By: Dr. Palomino on 10-13-2022 CO2 [Moles/Vol] 27.0 mmol/L 21.0-32.0 [facility] Urea nitrogen/Creatinine [Mass ratio] 13.8 mg/mg 10-20 [facility] - Hematology and Cell countsOrdered By: Dr. Palomino on 10-13-2022 Erythrocyte distribution width (RBC) [Entitic vol] 41.9 fL 35.1-43.9 [facility] Erythrocyte distribution width (RBC) [Ratio] 13.6 % 11.6-14.6 [facility] Immature granulocytes/100 WBC (Bld) 0.100 % 0.0-0.9 [facility] Comment on above: IG% - Immature Granu locytes (promyelocytes, myelocytes and metamyelocytes) > 1% indicates that a LEFT SHIFT is Present. MCH (RBC) [Entitic mass] 25.9 pg 27.0-32.0 [facility] Nucleated RBC/100 WBC (Bld) [Ratio] 0 % 0-5 [facility] MCHC Auto (RBC) [Mass/Vol]Or dered By: Dr. Palomino on 10-13-2022 MCHC (RBC) [Mass/Vol] 30.9 g/dL 32-36 [facility] No Panel InformationOrdered By: Dr. Palomino on 10-13-2022 Estimated Creatinine Clearance Calc 131.33 ml/min [facility] Estimated GFR (MDRD) Amer 169 mL/min >60 [facility] Comment on above: GFR Calc Estimated GFR (MDRD) Non-Af Amer 140 mL/min >60 [facility] Comment on above: Non- GFR Calc Troponin I High Sensitivity 4 pg/mL 3.0-78.0 [facility] Comment on above: Please Note: New Nayla t Units and Gender Specific Reference Ranges. For more information see Policy Stat Procedure [place] High Sensitivity Troponin (TNIH) and attachments. Platelets bldOrdered By: Dr. Palomino on 10-13-2022 Platelets (Bld) [#/Vol] 309 10*3/uL 150-450 [facility] Serum or plasma calcium koby urement (mass/volume)Ordered By: Dr. Palomino on 10-13-2022 Calcium [Mass/Vol] 8.8 mg/dL 8.5-10.1 [facility] Serum or plasma creatinine m easurement (mass/volume)Ordered By: Dr. Palomino on 10-13-2022 Creatinine [Mass/Vol] 0.72 mg/dL 0.70-1.30 [facility] Comment on above: The validity of the calculated GFR & GFRAA in patients over 70 years has not been determined. Clinical correlation is essential. Serum or plasma urea nitroge n measurement (mass/volume)Ordered By: Dr. Palomino on 10-13-2022 Urea nitrogen [Mass/Vol] 10 mg/dL 7-18 [facility] Thin prep Papanicolaou smear with manual screeningOrdered By: Dr. Palomino on 10-13-2022 Thin prep Papanicolaou smear with manual screening 8 5-15 [facility] Absolute lymphocyte countOrd ered By: Dr. Reed on 08-24-2022 Lymphocytes Auto (Unsp spec) [#/Vol] 5.98 10*3/uL 0.83-4.51 [facility] Basophil percentageOrdered B y: Dr. Reed on 08-24-2022 Basophils/100 WBC (Bld) 0.3 % 0-1 [facility] Chloride [Moles/Vol] 103 mmol/L 98-107 [facility] Eosinophils/100 WBC (Bld) 5.5 % 0-5 [facility] Glucose [Mass/Vol] 52 mg/dL 74-106 [facility] Neutrophils (Bld) [#/Vol] 3.8 10*3/uL 2.0-7.7 [facility] Neutrophils/100 WBC (Bld) 30.5 % 47-70 [facility] Potassium [Moles/Vol] 3.0 mmol/L 3.5-5.1 [facility] Sodium [Moles/Vol] 142 mmol/L 136-145 [facility] WBC (Bld) [#/Vol] 12.6 10*3/uL 4.4-11.0 [facility] Blood erythrocytes count (nu mber/volume)Ordered By: Dr. Reed on 08-24-2022 RBC (Bld) [#/Vol] 5.40 10*6/uL 4.6-6.2 [facility] Blood hemoglobin measurement (mass/volume)Ordered By: Dr. Reed on 08-24-2022 Hemoglobin (Bld) [Mass/Vol] 14.0 g/dL 13.0-16.5 [facility] Blood lymphocytes/100 leukoc ytesOrdered By: Dr. Reed on 08-24-2022 Lymphocytes/100 WBC (Bld) 47.4 % 19-41 [facility] Blood manual differential co mment interpretation (narrative result)Ordered By: Dr. Reed on 08-24-2022 Manual differential comment Gigi (Bld) [Interp] SCANNED [facility] Blood monocytes/100 leukocyt esOrdered By: Dr. Reed on 08-24-2022 Monocytes/100 WBC (Bld) 16.0 % 0-10 [facility] Blood platelet mean volumeOr dered By: Dr. Reed on 08-24-2022 Platelet mean volume (Bld) [Entitic vol] 10.5 fL 6.2-12.0 [facility] Determination of erythrocyte mean corpuscular volume (MCV)Ordered By: Dr. Reed on 08-24-2022 MCV (RBC) [Entitic vol] 81.5 fL 80-94 [facility] Hematocrit Auto (Bld) [Volum e fraction]Ordered By: Dr. Reed on 08-24-2022 Hematocrit (Bld) [Volume fraction] 44.0 % 40-54 [facility] - Chemistry and C hemistry - challengeOrdered By: Dr. Reed on 08-24-2022 CO2 [Moles/Vol] 32.0 mmol/L 21.0-32.0 [facility] Urea nitrogen/Creatinine [Mass ratio] 16.8 mg/mg 10-20 [facility] - Hematology and Cell countsOrdered By: Dr. Reed on 08-24-2022 Erythrocyte distribution width (RBC) [Entitic vol] 40.7 fL 35.1-43.9 [facility] Erythrocyte distribution width (RBC) [Ratio] 14.0 % 11.6-14.6 [facility] Immature granulocytes/100 WBC (Bld) 0.300 % 0.0-0.9 [facility] Comment on above: IG% - Immature Granu locytes (promyelocytes, myelocytes and metamyelocytes) > 1% indicates that a LEFT SHIFT is Present. MCH (RBC) [Entitic mass] 25.9 pg 27.0-32.0 [facility] Nucleated RBC/100 WBC (Bld) [Ratio] 0 % 0-5 [facility] MCHC Auto (RBC) [Mass/Vol]Or dered By: Dr. Reed on 08-24-2022 MCHC (RBC) [Mass/Vol] 31.8 g/dL 32-36 [facility] Comment on above: Delta: 33.6 on 08/20-0407 No Panel InformationOrdered By: Dr. Reed on 08-24-2022 Estimated Creatinine Clearance Calc 143.27 ml/min [facility] Estimated GFR (MDRD) Amer 190 mL/min >60 [facility] Comment on above: GFR Calc Estimated GFR (MDRD) Non-Af Amer 157 mL/min >60 [facility] Comment on above: Non- GFR Calc Reactive Lymphocytes 1+ [facility] Platelets bldOrdered By: Dr. Reed on 08-24-2022 Platelets (Bld) [#/Vol] 492 10*3/uL 150-450 [facility] Review by pathologistOrdered By: Dr. Reed on 08-24-2022 Pathologist review Gigi (Unsp spec) [Interp] Louisa wiseman [facility] Pathologist review Gigi (Unsp spec) [Interp] Reviewed [facility] Comment on above: Previous reported re sult: Louisa wiseman Edited by: [email or web address] on 08/26/22:0938Leukocytosis. Thrombocytosis.Clinical correlation necessary.Herson Olivas M.D. 08/26/22 AMENDED REPORT 08/26/22 0938 PATH REV previously reported as: Louisa wiseman Serum or plasma calcium koby urement (mass/volume)Ordered By: Dr. Reed on 08-24-2022 Calcium [Mass/Vol] 9.4 mg/dL 8.5-10.1 [facility] Serum or plasma creatinine m easurement (mass/volume)Ordered By: Dr. Reed on 08-24-2022 Creatinine [Mass/Vol] 0.66 mg/dL 0.70-1.30 [facility] Comment on above: The validity of the calculated GFR & GFRAA in patients over 70 years has not been determined. Clinical correlation is essential. Serum or plasma urea nitroge n measurement (mass/volume)Ordered By: Dr. Reed on 08-24-2022 Urea nitrogen [Mass/Vol] 11 mg/dL - [facility] Thin prep Papanicolaou smear with manual screeningOrdered By: Dr. Reed on 08-24-2022 Thin prep Papanicolaou smear with manual screening 7 5-15 [facility] Absolute lymphocyte countOrd ered By: Dr. Cruz on 08-20-2022 Lymphocytes Auto (Unsp spec) [#/Vol] 3.61 10*3/uL 0.83-4.51 [facility] Basophil percentageOrdered B y: Dr. Cruz on 08-20-2022 Basophils/100 WBC (Bld) 0.2 % 0-1 [facility] Chloride [Moles/Vol] 104 mmol/L 98-107 [facility] Eosinophils/100 WBC (Bld) 0.2 % 0-5 [facility] Glucose [Mass/Vol] 162 mg/dL 74-106 [facility] Comment on above: Fasting Glucose resu lt greater than or equal to 126 mg/dL suggests DIABETES MELLITUS per A.D.A. criteria. Neutrophils (Bld) [#/Vol] 7.8 10*3/uL 2.0-7.7 [facility] Neutrophils/100 WBC (Bld) 60.1 % 47-70 [facility] Potassium [Moles/Vol] 3.0 mmol/L 3.5-5.1 [facility] Sodium [Moles/Vol] 141 mmol/L 136-145 [facility] WBC (Bld) [#/Vol] 13.0 10*3/uL 4.4-11.0 [facility] Blood erythrocytes count (nu mber/volume)Ordered By: Dr. Cruz on 08-20-2022 RBC (Bld) [#/Vol] 4.34 10*6/uL 4.6-6.2 [facility] Blood hemoglobin measurement (mass/volume)Ordered By: Dr. Cruz on 08-20-2022 Hemoglobin (Bld) [Mass/Vol] 11.7 g/dL 13.0-16.5 [facility] Blood lymphocytes/100 leukoc ytesOrdered By: Dr. Cruz on 08-20-2022 Lymphocytes/100 WBC (Bld) 27.7 % 19-41 [facility] Blood monocytes/100 leukocyt esOrdered By: Dr. Cruz on 08-20-2022 Monocytes/100 WBC (Bld) 11.4 % 0-10 [facility] Blood platelet mean volumeOr dered By: Dr. Cruz on 08-20-2022 Platelet mean volume (Bld) [Entitic vol] 10.1 fL 6.2-12.0 [facility] Determination of erythrocyte mean corpuscular volume (MCV)Ordered By: Dr. Cruz on 08-20-2022 MCV (RBC) [Entitic vol] 80.2 fL 80-94 [facility] Glucose Glucometer (BldC) [M ass/Vol]Ordered By: Dr. Cruz on 08-20-2022 Glucose [Mass/Vol] 120 mg/dL 74-106 [facility] Comment on above: MANAGEMENT OF PATIEN T CARE PER NURSING PROTOCOL Hematocrit Auto (Bld) [Volum e fraction]Ordered By: Dr. Cruz on 08-20-2022 Hematocrit (Bld) [Volume fraction] 34.8 % 40-54 [facility] Laboratory - Chemistry and C hemistry - challengeOrdered By: Dr. Cruz on 08-20-2022 CO2 [Moles/Vol] 31.0 mmol/L 21.0-32.0 [facility] Urea nitrogen/Creatinine [Mass ratio] 18.1 mg/mg 10-20 [facility] - Hematology and Cell countsOrdered By: Dr. Cruz on 08-20-2022 Erythrocyte distribution width (RBC) [Entitic vol] 42.3 fL 35.1-43.9 [facility] Erythrocyte distribution width (RBC) [Ratio] 14.5 % 11.6-14.6 [facility] Immature granulocytes/100 WBC (Bld) 0.400 % 0.0-0.9 [facility] Comment on above: IG% - Immature Granu locytes (promyelocytes, myelocytes and metamyelocytes) > 1% indicates that a LEFT SHIFT is Present. MCH (RBC) [Entitic mass] 27.0 pg 27.0-32.0 [facility] Nucleated RBC/100 WBC (Bld) [Ratio] 0 % 0-5 [facility] MCHC Auto (RBC) [Mass/Vol]Or dered By: Dr. Cruz on 08-20-2022 MCHC (RBC) [Mass/Vol] 33.6 g/dL 32-36 [facility] No Panel InformationOrdered By: Dr. Cruz on 08-20-2022 Estimated Creatinine Clearance Calc 189.05 ml/min [facility] Estimated GFR (MDRD) Amer 232 mL/min >60 [facility] Comment on above: GFR Calc Estimated GFR (MDRD) Non-Af Amer 191 mL/min >60 [facility] Comment on above: Non- GFR Calc Platelets bldOrdered By: Dr. Cruz on 08-20-2022 Platelets (Bld) [#/Vol] 254 10*3/uL 150-450 [facility] Serum or plasma calcium koby urement (mass/volume)Ordered By: Dr. Cruz on 08-20-2022 Calcium [Mass/Vol] 8.0 mg/dL 8.5-10.1 [facility] Serum or plasma creatinine m easurement (mass/volume)Ordered By: Dr. Cruz on 08-20-2022 Creatinine [Mass/Vol] 0.55 mg/dL 0.70-1.30 [facility] Comment on above: The validity of the calculated GFR & GFRAA in patients over 70 years has not been determined. Clinical correlation is essential. Serum or plasma urea nitroge n measurement (mass/volume)Ordered By: Dr. Cruz on 08-20-2022 Urea nitrogen [Mass/Vol] 10 mg/dL 7-18 [facility] Thin prep Papanicolaou smear with manual screeningOrdered By: Dr. Cruz on 08-20-2022 Thin prep Papanicolaou smear with manual screening 6 5-15 [facility] Throat Streptococcus pyogene s antigen detection by immunofluorescenceOrdered By: Dr. Cruz on 08-20-2022 S. pyogenes Ag IF Ql (Throat) [facility] Review by pathologistOrdered By: Dr. Cruz on 08-19-2022 Pathologist review Gigi (Unsp spec) [Interp] Reviewed [facility] Comment on above: Previous reported re sult: Louisa wiseman Edited by: [email or web address] on 08/20/22:0931Neutrophilic leukocytosis.Clinical correlation necessary.Herson Olivas M.D. 08/20/22 AMENDED REPORT 08/20/22 0931 PATH REV previously reported as: Louisa wiseman Basophil percentageOrdered B y: Dr. Handy on 08-18-2022 Lactate [Moles/Vol] 1.2 mmol/L 0.4-2.0 [facility] Basophil percentage 7.9 mg/dL 2.5-4.9 [facility] Basophil percentageOrdered B y: Dr. Cruz on 08-18-2022 Basophil percentage 0 SEEN /hpf 0-5 [facility] Bilirubin [Mass/Vol] 0.70 mg/dL 0.20-1.00 [facility] Comment on above: For patients on eltr ombopag therapy, use of Dimension [place] TBIL is not recommended. Protein [Mass/Vol] 7.2 g/dL 6.4-8.2 [facility] Bilirubin Test strip Ql (U)O rdered By: Dr. Cruz on 08-18-2022 Bilirubin Ql (U) Negative Negative [facility] Blood manual differential co mment interpretation (narrative result)Ordered By: Dr. Handy on 08-18-2022 Manual differential comment Gigi (Bld) [Interp] SCANNED [facility] Direct bilirubinOrdered By: Dr. Cruz on 08-18-2022 Bilirubin.direct [Mass/Vol] 0.13 mg/dL 0.00-0.30 [facility] HCO3 (BldA) [Moles/Vol]Order ed By: Dr. Cruz on 08-18-2022 HCO3 (Bld) [Moles/Vol] 4 mmol/L - [facility] Ketones Test strip Ql (U)Ord ered By: Dr. Cruz on 08-18-2022 Ketones Ql (U) 150 mg/dl Negative [facility] Comment on above: CRITICAL VALUE *HCRI TICAL VALUE VERIFIED. CALLED TO JOSE CARLOS ROGERS (ICU)08/18/22 1516 Walt Hoff.RESULTS READ BACK BY SAME. Laboratory - Chemistry and C hemistry - challengeOrdered By: Dr. Cruz on 08-18-2022 ALP [Catalytic activity/Vol] 178 U/L 45-117 [facility] ALT [Catalytic activity/Vol] 18 U/L 16-61 [facility] Globulin (S) [Mass/Vol] 4.0 g/dL 2.2-4.2 [facility] Laboratory - Chemistry and C hemistry - challengeOrdered By: Dr. Handy on 08-18-2022 Lipase [Catalytic activity/Vol] 34 U/L 73-393 [facility] Magnesium [Mass/Vol] 3.2 mg/dL 1.6-2.6 [facility] Laboratory - Microbiology an d Antimicrobial susceptibilityOrdered By: Dr. Cruz on 08-18-2022 SARS-CoV-2 (COVID-19) RNA LM+probe Ql (Unsp spec) Not detected Not Detect [facility] Comment on above: Normal Reference Ran [...] Respiratory pathogens DNA and RNA 12b panel ML+probe (Unsp spec) [facility] Mucus LM Ql (Urine sed)Order ed By: Dr. Cruz on 08-18-2022 Mucus Ql (Urine sed) 0 SEEN /hpf [facility] Nitrite Test strip Ql (U)Ord ered By: Dr. Cruz on 08-18-2022 Nitrite Ql (U) Negative Negative [facility] No Panel InformationOrdered By: Dr. Cruz on 08-18-2022 Bed Mix Venous Bld PCO2 at Pat Temp 13.9 mmHg 41-51 [facility] Bld Gas Crit Called To/Read Back By Yes [facility] Blood Gas Notified Time 10:17:05 [facility] Blood Gas Notified Whom anna marie Medina [facility] Blood Gas Specimen Type JAIDEN [facility] Oxygen Delivery Device Room Air [facility] Venous Blood Base Excess -25 mmol/L -1.0-3.5 [facility] Venous Blood Total Carbon Dioxide < 5 mmol/L 23-33 [facility] PO2 venousOrdered By: Dr. David guillory on 08-18-2022 Oxygen (BldV) [Partial pressure] 64 mm[Hg] 25-40 [facility] Protein Test strip Ql (U)Ord ered By: Dr. Cruz on 08-18-2022 Protein Ql (U) 15 mg/dl Negative [facility] Serum or plasma acetone koby urement (mass/volume)Ordered By: Dr. Handy on 08-18-2022 Acetone [Mass/Vol] LARGE NEG [facility] Serum or plasma albumin koby urement (mass/volume)Ordered By: Dr. Cruz on 08-18-2022 Albumin [Mass/Vol] 3.2 g/dL 3.2-5.0 [facility] Squamous epithelial cells de tection in urine sediment by light microscopyOrdered By: Dr. Cruz on 08-18-2022 Epithelial cells.squamous LM Ql (Urine sed) 0 SEEN /hpf 0-5 [facility] Thin prep Papanicolaou smear with manual screeningOrdered By: Dr. Cruz on 08-18-2022 Thin prep Papanicolaou smear with manual screening 3 U/L 15-37 [facility] Urine blood detectionOrdered By: Dr. Cruz on 08-18-2022 RBC Ql (U) Negative Negative [facility] RBC Ql (U) 0 SEEN /hpf 0-5 [facility] Urine clarityOrdered By: Dr. Cruz on 08-18-2022 Clarity (U) Clear Clear [facility] Urine color determinationOrd ered By: Dr. Cruz on 08-18-2022 Color (U) Straw Yellow [facility] Urine glucose detectionOrder ed By: Dr. Cruz on 08-18-2022 Glucose Ql (U) 1000 mg/dl Normal [facility] Urine leukocyte esterase det ection by dipstickOrdered By: Dr. Cruz on 08-18-2022 Leukocyte esterase Test strip Ql (U) Negative Negative [facility] Urine pHOrdered By: Dr. Karla green on 08-18-2022 pH (U) 5.0 [pH] 5.0 - 8.0 [facility] Urine sediment bacteria coun t by microscopy (number/high power field)Ordered By: Dr. Cruz on 08-18-2022 Bacteria LM.HPF (Urine sed) [#/Area] 0 /[HPF] None Seen [facility] Urine specific gravity measu rementOrdered By: Dr. Cruz on 08-18-2022 Specific gravity (U) [Rel density] 1.020 1.002-1.03 0 [facility] Urobilinogen Auto test strip Ql (U)Ordered By: Dr. Cruz on 08-18-2022 Urobilinogen Ql (U) Normal mg/dl Normal [facility] Vital signsOrdered By: Dr. Bladimir hernandez on 08-18-2022 Oxygen saturation in Blood 84 % 50-70 [facility] Whole blood hemoglobin A1c/t otal hemoglobin ratio (mass fraction)Ordered By: Dr. Handy on 08-18-2022 HbA1c (Bld) [Mass fraction] 10.7 % 3.8-5.6 [facility] Comment on above: Normal < 5.7 % Predi abetic 5.7 - 6.4 % Diabetic >or= 6.5 % Please note range changes. pH measurementOrdered By: Dr Shin Cruz on 08-18-2022 pH (Unsp spec) 7.10 [pH] 7.32-7.42 [facility] Absolute lymphocyte countOrd ered By: Lourdes Metz on 07-07-2022 Lymphocytes Auto (Unsp spec) [#/Vol] 1.75 10*3/uL 0.83-4.51 [facility] Basophil percentageOrdered B y: Lourdes Metz on 07-07-2022 Basophils/100 WBC (Bld) 0.4 % 0-1 [facility] Chloride [Moles/Vol] 95 mmol/L 98-107 [facility] Eosinophils/100 WBC (Bld) 0.4 % 0-5 [facility] Glucose [Mass/Vol] 376 mg/dL 74-106 [facility] Comment on above: Glucose result great er than or equal to 200 mg/dLsuggests DIABETES MELLITUS per A.D.A. criteria. Neutrophils (Bld) [#/Vol] 4.7 10*3/uL 2.0-7.7 [facility] Neutrophils/100 WBC (Bld) 62.7 % 47-70 [facility] Potassium [Moles/Vol] 3.6 mmol/L 3.5-5.1 [facility] Sodium [Moles/Vol] 133 mmol/L 136-145 [facility] WBC (Bld) [#/Vol] 7.5 10*3/uL 4.4-11.0 [facility] Blood erythrocytes count (nu mber/volume)Ordered By: Lourdes Metz on 07-07-2022 RBC (Bld) [#/Vol] 5.38 10*6/uL 4.6-6.2 [facility] Blood hemoglobin measurement (mass/volume)Ordered By: Lourdes Metz on 07-07-2022 Hemoglobin (Bld) [Mass/Vol] 14.3 g/dL 13.0-16.5 [facility] Blood lymphocytes/100 leukoc ytesOrdered By: Lourdes Metz on 07-07-2022 Lymphocytes/100 WBC (Bld) 23.2 % 19-41 [facility] Blood monocytes/100 leukocyt esOrdered By: Lourdes Metz on 07-07-2022 Monocytes/100 WBC (Bld) 13.0 % 0-10 [facility] Blood platelet mean volumeOr dered By: Lourdes Metz on 07-07-2022 Platelet mean volume (Bld) [Entitic vol] 11.2 fL 6.2-12.0 [facility] Determination of erythrocyte mean corpuscular volume (MCV)Ordered By: Lourdes Metz on 07-07-2022 MCV (RBC) [Entitic vol] 81.0 fL 80-94 [facility] Glucose Glucometer (BldC) [M ass/Vol]Ordered By: Dr. Mcclain on 07-07-2022 Glucose [Mass/Vol] 158 mg/dL 74-106 [facility] Comment on above: MANAGEMENT OF PATIEN T CARE PER NURSING PROTOCOL Hematocrit Auto (Bld) [Volum e fraction]Ordered By: Lourdes Metz on 07-07-2022 Hematocrit (Bld) [Volume fraction] 43.6 % 40-54 [facility] Influenza virus A and B and SARS-CoV-2 (COVID-19) Ag panel - Upper respiratory specimOrdered By: Lourdes Metz on 07-07-2022 SARS-CoV-2 & FLU Antigen (Rapid) SARS-CoV-2 (COVID 19) [facility] Laboratory - Chemistry and C hemistry - challengeOrdered By: Lourdes Metz on 07-07-2022 CO2 [Moles/Vol] 29.0 mmol/L 21.0-32.0 [facility] Urea nitrogen/Creatinine [Mass ratio] 10.0 mg/mg 10-20 [facility] Laboratory - Hematology and Cell countsOrdered By: Lourdes Metz on 07-07-2022 Erythrocyte distribution width (RBC) [Entitic vol] 41.0 fL 35.1-43.9 [facility] Erythrocyte distribution width (RBC) [Ratio] 14.0 % 11.6-14.6 [facility] Immature granulocytes/100 WBC (Bld) 0.300 % 0.0-0.9 [facility] Comment on above: IG% - Immature Granu locytes (promyelocytes, myelocytes and metamyelocytes) > 1% indicates that a LEFT SHIFT is Present. MCH (RBC) [Entitic mass] 26.6 pg 27.0-32.0 [facility] Nucleated RBC/100 WBC (Bld) [Ratio] 0 % 0-5 [facility] MCHC Auto (RBC) [Mass/Vol]Or dered By: Lourdes Metz on 07-07-2022 MCHC (RBC) [Mass/Vol] 32.8 g/dL 32-36 [facility] No Panel InformationOrdered By: Lourdes Metz on 07-07-2022 D-Dimer Quantitative (PE/DVT) 0.28 FEU/ug/m 0.27-0.49 [facility] Comment on above: NORMAL D-Dimer level (<0.50) indicates no DVT or PE. Estimated Creatinine Clearance Calc 109.25 ml/min [facility] Estimated GFR (MDRD) Amer 117 mL/min >60 [facility] Comment on above: GFR Calc Estimated GFR (MDRD) Non-Af Amer 97 mL/min >60 [facility] Comment on above: Non- GFR Calc Troponin I High Sensitivity 4 pg/mL 3.0-78.0 [facility] Comment on above: Please Note: New Nayla t Units and Gender Specific Reference Ranges. For more information see Policy Stat Procedure [place] High Sensitivity Troponin (TNIH) and attachments. Platelets bldOrdered By: Graham Metz on 07-07-2022 Platelets (Bld) [#/Vol] 260 10*3/uL 150-450 [facility] Serum or plasma calcium koby urement (mass/volume)Ordered By: Lourdes Metz on 07-07-2022 Calcium [Mass/Vol] 8.8 mg/dL 8.5-10.1 [facility] Serum or plasma creatinine m easurement (mass/volume)Ordered By: Lourdes Metz on 07-07-2022 Creatinine [Mass/Vol] 1.00 mg/dL 0.70-1.30 [facility] Comment on above: The validity of the calculated GFR & GFRAA in patients over 70 years has not been determined. Clinical correlation is essential. Serum or plasma urea nitroge n measurement (mass/volume)Ordered By: Lourdes Metz on 07-07-2022 Urea nitrogen [Mass/Vol] 10 mg/dL 7-18 [facility] Thin prep Papanicolaou smear with manual screeningOrdered By: Lourdesdarin Metz on 07-07-2022 Thin prep Papanicolaou smear with manual screening 9 5-15 [facility] Glucose Glucometer (BldC) [M ass/Vol]Ordered By: Dr. Zarate on 07-01-2022 Glucose [Mass/Vol] 85 mg/dL 74-106 [facility] Comment on above: MANAGEMENT OF PATIEN T CARE PER NURSING PROTOCOL Serum or plasma acetone koby urement (mass/volume)Ordered By: Dr. Zarate on 07-01-2022 Acetone [Mass/Vol] MODERATE NEG [facility] Absolute lymphocyte countOrd ered By: Dr. Zarate on 06-30-2022 Lymphocytes Auto (Unsp spec) [#/Vol] 4.64 10*3/uL 0.83-4.51 [facility] Basophil percentageOrdered B y: Dr. Zarate on 06-30-2022 Basophils/100 WBC (Bld) 0.8 % 0-1 [facility] Chloride [Moles/Vol] 97 mmol/L 98-107 [facility] Eosinophils/100 WBC (Bld) 5.2 % 0-5 [facility] Glucose [Mass/Vol] 569 mg/dL 74-106 [facility] Comment on above: Critical Result(s) C alled at: 23:51:55 06/30/2022 by: Jorge A Tamayo TO CURT HORN RN (ED) Results read back by same.Glucose result greater than or equal to 200 mg/dLsuggests DIABETES MELLITUS per A.D.A. criteria. Neutrophils (Bld) [#/Vol] 5.9 10*3/uL 2.0-7.7 [facility] Neutrophils/100 WBC (Bld) 48.9 % 47-70 [facility] Potassium [Moles/Vol] 4.2 mmol/L 3.5-5.1 [facility] Sodium [Moles/Vol] 134 mmol/L 136-145 [facility] WBC (Bld) [#/Vol] 12.1 10*3/uL 4.4-11.0 [facility] Blood erythrocytes count (nu mber/volume)Ordered By: Dr. Zarate on 06-30-2022 RBC (Bld) [#/Vol] 5.32 10*6/uL 4.6-6.2 [facility] Blood hemoglobin measurement (mass/volume)Ordered By: Dr. Zarate on 06-30-2022 Hemoglobin (Bld) [Mass/Vol] 14.0 g/dL 13.0-16.5 [facility] Blood lymphocytes/100 leukoc ytesOrdered By: Dr. Zarate on 06-30-2022 Lymphocytes/100 WBC (Bld) 38.4 % 19-41 [facility] Blood monocytes/100 leukocyt esOrdered By: Dr. Zarate on 06-30-2022 Monocytes/100 WBC (Bld) 6.0 % 0-10 [facility] Blood platelet mean volumeOr dered By: Dr. Zarate on 06-30-2022 Platelet mean volume (Bld) [Entitic vol] 10.6 fL 6.2-12.0 [facility] Determination of erythrocyte mean corpuscular volume (MCV)Ordered By: Dr. Zarate on 06-30-2022 MCV (RBC) [Entitic vol] 80.3 fL 80-94 [facility] Hematocrit Auto (Bld) [Volum e fraction]Ordered By: Dr. Zarate on 06-30-2022 Hematocrit (Bld) [Volume fraction] 42.7 % 40-54 [facility] Laboratory - Chemistry and C hemistry - challengeOrdered By: Dr. Zarate on 06-30-2022 CO2 [Moles/Vol] 22.0 mmol/L 21.0-32.0 [facility] Urea nitrogen/Creatinine [Mass ratio] 15.8 mg/mg 10-20 [facility] Laboratory - Hematology and Cell countsOrdered By: Dr. Zarate on 06-30-2022 Erythrocyte distribution width (RBC) [Entitic vol] 39.7 fL 35.1-43.9 [facility] Erythrocyte distribution width (RBC) [Ratio] 13.7 % 11.6-14.6 [facility] Immature granulocytes/100 WBC (Bld) 0.700 % 0.0-0.9 [facility] Comment on above: IG% - Immature Granu locytes (promyelocytes, myelocytes and metamyelocytes) > 1% indicates that a LEFT SHIFT is Present. MCH (RBC) [Entitic mass] 26.3 pg 27.0-32.0 [facility] Nucleated RBC/100 WBC (Bld) [Ratio] 0 % 0-5 [facility] MCHC Auto (RBC) [Mass/Vol]Or dered By: Dr. Zarate on 06-30-2022 MCHC (RBC) [Mass/Vol] 32.8 g/dL 32-36 [facility] No Panel InformationOrdered By: Dr. Zarate on 06-30-2022 D-Dimer Quantitative (PE/DVT) < 0.27 FEU/ug/m 0.27-0.49 [facility] Comment on above: NORMAL D-Dimer level (<0.50) indicates no DVT or PE. Estimated Creatinine Clearance Calc 97.16 ml/min [facility] Estimated GFR (MDRD) Amer 95 mL/min >60 [facility] Comment on above: GFR Calc Estimated GFR (MDRD) Non-Af Amer 78 mL/min >60 [facility] Comment on above: Non- GFR Calc Troponin I High Sensitivity 4 pg/mL 3.0-78.0 [facility] Comment on above: Please Note: New Nayla t Units and Gender Specific Reference Ranges. For more information see Policy Stat Procedure [place] High Sensitivity Troponin (TNIH) and attachments. Platelets bldOrdered By: Dr. Zarate on 06-30-2022 Platelets (Bld) [#/Vol] 456 10*3/uL 150-450 [facility] Serum or plasma calcium koby urement (mass/volume)Ordered By: Dr. Zarate on 06-30-2022 Calcium [Mass/Vol] 8.8 mg/dL 8.5-10.1 [facility] Serum or plasma creatinine m easurement (mass/volume)Ordered By: Dr. Zarate on 06-30-2022 Creatinine [Mass/Vol] 1.20 mg/dL 0.70-1.30 [facility] Comment on above: The validity of the calculated GFR & GFRAA in patients over 70 years has not been determined. Clinical correlation is essential. Serum or plasma urea nitroge n measurement (mass/volume)Ordered By: Dr. Zarate on 06-30-2022 Urea nitrogen [Mass/Vol] 19 mg/dL 7-18 [facility] Thin prep Papanicolaou smear with manual screeningOrdered By: Dr. Zarate on 06-30-2022 Thin prep Papanicolaou smear with manual screening 15 5-15 [facility] Absolute lymphocyte counton 03-03-2022 Lymphocytes Auto (Unsp spec) [#/Vol] 3.87 10*3/uL 0.83-4.51 [facility] Work Phone: Basophil percentageon 2021 Basophils/100 WBC (Bld) 0.3 % 0-1 [facility] Work Phone: Chloride [Moles/Vol] 113 mmol/L 98-107 [facility] Work Phone: Eosinophils/100 WBC (Bld) 1.7 % 0-5 [facility] Work Phone: Glucose [Mass/Vol] 71 mg/dL 74-106 [facility] Work Phone: Neutrophils (Bld) [#/Vol] 8.9 10*3/uL 2.0-7.7 [facility] Work Phone: Neutrophils/100 WBC (Bld) 62.2 % 47-70 [facility] Work Phone: Potassium [Moles/Vol] 3.6 mmol/L 3.5-5.1 [facility] Work Phone: Sodium [Moles/Vol] 142 mmol/L 136-145 [facility] Work Phone: WBC (Bld) [#/Vol] 14.3 10*3/uL 4.4-11.0 [facility] Work Phone: Blood erythrocytes count (nu mber/volume)on 03-03-2022 RBC (Bld) [#/Vol] 4.58 10*6/uL 4.6-6.2 [facility] Work Phone: Blood hemoglobin measurement (mass/volume)on 03-03-2022 Hemoglobin (Bld) [Mass/Vol] 12.6 g/dL 13.0-16.5 [facility] Work Phone: Blood lymphocytes/100 leukoc yteson 03-03-2022 Lymphocytes/100 WBC (Bld) 27.0 % 19-41 [facility] Work Phone: Blood monocytes/100 leukocyt eson 03-03-2022 Monocytes/100 WBC (Bld) 8.2 % 0-10 [facility] Work Phone: Blood platelet mean volumeon 03-03-2022 Platelet mean volume (Bld) [Entitic vol] 9.4 fL 6.2-12.0 [facility] Work Phone: Determination of erythrocyte mean corpuscular volume (MCV)on 03-03-2022 MCV (RBC) [Entitic vol] 83.6 fL 80-94 [facility] Work Phone: Comment on above: Delta: 91.7 on 03/02-1026 Glucose Glucometer (BldC) [M ass/Vol]on 03-03-2022 Glucose [Mass/Vol] 224 mg/dL 74-106 [facility] Work Phone: Comment on above: MANAGEMENT OF PATIEN T CARE PER NURSING PROTOCOL Hematocrit Auto (Bld) [Volum e fraction]on 03-03-2022 Hematocrit (Bld) [Volume fraction] 38.3 % 40-54 [facility] Work Phone: Laboratory - Chemistry and C hemistry - challengeon 03-03-2022 CO2 [Moles/Vol] 21.0 mmol/L 21.0-32.0 [facility] Work Phone: Urea nitrogen/Creatinine [Mass ratio] 14.9 mg/mg 10-20 [facility] Work Phone: Laboratory - Hematology and Cell countson 03-03-2022 Erythrocyte distribution width (RBC) [Entitic vol] 43.5 fL 35.1-43.9 [facility] Work Phone: Erythrocyte distribution width (RBC) [Ratio] 14.3 % 11.6-14.6 [facility] Work Phone: Immature granulocytes/100 WBC (Bld) 0.600 % 0.0-0.9 [facility] Work Phone: Comment on above: IG% - Immature Granu locytes (promyelocytes, myelocytes and metamyelocytes) > 1% indicates that a LEFT SHIFT is Present. MCH (RBC) [Entitic mass] 27.5 pg 27.0-32.0 [facility] Work Phone: Nucleated RBC/100 WBC (Bld) [Ratio] 0 % 0-5 [facility] Work Phone: MCHC Auto (RBC) [Mass/Vol]on 03-03-2022 MCHC (RBC) [Mass/Vol] 32.9 g/dL 32-36 [facility] Work Phone: Comment on above: Delta: 29.6 on 03/02-1026 No Panel Informationon 03-03 Estimated Creatinine Clearance Calc 111.61 ml/min [facility] Work Phone: Estimated GFR (MDRD) Amer 150 mL/min >60 [facility] Work Phone: Comment on above: GFR Calc Estimated GFR (MDRD) Non-Af Amer 124 mL/min >60 [facility] Work Phone: Comment on above: Non- GFR Calc Platelets bldon 03-03-2022 Platelets (Bld) [#/Vol] 345 10*3/uL 150-450 [facility] Work Phone: Serum or plasma calcium koby urement (mass/volume)on 03-03-2022 Calcium [Mass/Vol] 7.9 mg/dL 8.5-10.1 [facility] Work Phone: Serum or plasma creatinine m easurement (mass/volume)on 03-03-2022 Creatinine [Mass/Vol] 0.81 mg/dL 0.70-1.30 [facility] Work Phone: Comment on above: The validity of the calculated GFR & GFRAA in patients over 70 years has not been determined. Clinical correlation is essential. Serum or plasma urea nitroge n measurement (mass/volume)on 03-03-2022 Urea nitrogen [Mass/Vol] 12 mg/dL 7-18 [facility] Work Phone: Thin prep Papanicolaou smear with manual screeningon 03-03-2022 Thin prep Papanicolaou smear with manual screening 8 5-15 [facility] Work Phone: Absolute lymphocyte counton 2022 Lymphocytes Auto (Unsp spec) [#/Vol] 4.87 10*3/uL 0.83-4.51 [facility] Work Phone: Basophil percentageon 2021 Basophil percentage 0 SEEN /hpf 0-5 [facility] Work Phone: Basophil percentage 9.1 mg/dL 2.5-4.9 [facility] Work Phone: Comment on above: Critical Result(s) C alled at: 11:23:45 2022 by: Renita Butt to [employer]. Results read back by same. Basophils/100 WBC (Bld) 0.9 % 0-1 [facility] Work Phone: Bilirubin [Mass/Vol] 0.60 mg/dL 0.20-1.00 [facility] Work Phone: Comment on above: For patients on eltr ombopag therapy, use of Dimension [place] TBIL is not recommended. Chloride [Moles/Vol] 86 mmol/L 98-107 [facility] Work Phone: Eosinophils/100 WBC (Bld) 0.8 % 0-5 [facility] Work Phone: Glucose [Mass/Vol] 852 mg/dL 74-106 [facility] Work Phone: Comment on above: Critical Result(s) C alled at: 11:23:45 2022 by: Renita Butt to [employer]. Results read back by same.Glucose result greater than or equal to 200 mg/dLsuggests DIABETES MELLITUS per A.D.A. criteria. Neutrophils (Bld) [#/Vol] 11.8 10*3/uL 2.0-7.7 [facility] Work Phone: Neutrophils/100 WBC (Bld) 64.6 % 47-70 [facility] Work Phone: Potassium [Moles/Vol] 5.2 mmol/L 3.5-5.1 [facility] Work Phone: Protein [Mass/Vol] 9.0 g/dL 6.4-8.2 [facility] Work Phone: Sodium [Moles/Vol] 128 mmol/L 136-145 [facility] Work Phone: WBC (Bld) [#/Vol] 18.3 10*3/uL 4.4-11.0 [facility] Work Phone: Bilirubin Test strip Ql (U)o n 07-25-2022 Bilirubin Ql (U) Negative Negative [facility] Work Phone: Blood erythrocytes count (nu mber/volume)on 2022 RBC (Bld) [#/Vol] 6.11 10*6/uL 4.6-6.2 [facility] Work Phone: Blood hemoglobin measurement (mass/volume)on 2022 Hemoglobin (Bld) [Mass/Vol] 16.6 g/dL 13.0-16.5 [facility] Work Phone: Blood lymphocytes/100 leukoc yteson 2022 Lymphocytes/100 WBC (Bld) 26.6 % 19-41 [facility] Work Phone: Blood monocytes/100 leukocyt eson 2022 Monocytes/100 WBC (Bld) 5.5 % 0-10 [facility] Work Phone: Blood platelet mean volumeon 2022 Platelet mean volume (Bld) [Entitic vol] 10.7 fL 6.2-12.0 [facility] Work Phone: Determination of erythrocyte mean corpuscular volume (MCV)on 2022 MCV (RBC) [Entitic vol] 91.7 fL 80-94 [facility] Work Phone: Hematocrit Auto (Bld) [Volum e fraction]on 2022 Hematocrit (Bld) [Volume fraction] 56.0 % 40-54 [facility] Work Phone: Ketones Test strip Ql (U)on 2022 Ketones Ql (U) 150 mg/dl Negative [facility] Work Phone: Comment on above: CRITICAL VALUE VERIF IED. CALLED TO ODETTE MCADAMS RN (ICU)03/02/22 1845 Ney Navarro.RESULTS READ BACK BY SAME . CRITICAL VALUE *H Laboratory - Chemistry and C hemistry - challengeon 2022 ALP [Catalytic activity/Vol] 288 U/L 45-117 [facility] Work Phone: ALT [Catalytic activity/Vol] 62 U/L 16-61 [facility] Work Phone: CK [Catalytic activity/Vol] 44 U/L 39-308 [facility] Work Phone: CO2 [Moles/Vol] 10.0 mmol/L 21.0-32.0 [facility] Work Phone: Globulin (S) [Mass/Vol] 4.9 g/dL 2.2-4.2 [facility] Work Phone: Magnesium [Mass/Vol] 2.6 mg/dL 1.6-2.6 [facility] Work Phone: Urea nitrogen/Creatinine [Mass ratio] 17.3 mg/mg 10-20 [facility] Work Phone: Laboratory - Hematology and Cell countson 2022 Erythrocyte distribution width (RBC) [Entitic vol] 47.6 fL 35.1-43.9 [facility] Work Phone: Erythrocyte distribution width (RBC) [Ratio] 14.2 % 11.6-14.6 [facility] Work Phone: Immature granulocytes/100 WBC (Bld) 1.600 % 0.0-0.9 [facility] Work Phone: Comment on above: IG% - Immature Granu locytes (promyelocytes, myelocytes and metamyelocytes) > 1% indicates that a LEFT SHIFT is Present. MCH (RBC) [Entitic mass] 27.2 pg 27.0-32.0 [facility] Work Phone: Nucleated RBC/100 WBC (Bld) [Ratio] 0 % 0-5 [facility] Work Phone: MCHC Auto (RBC) [Mass/Vol]on 2022 MCHC (RBC) [Mass/Vol] 29.6 g/dL 32-36 [facility] Work Phone: Mucus LM Ql (Urine sed)on Mucus Ql (Urine sed) 0 SEEN /hpf [facility] Work Phone: Nitrite Test strip Ql (U)on 2022 Nitrite Ql (U) Negative Negative [facility] Work Phone: No Panel Informationon 03-02 Estimated Creatinine Clearance Calc 60.37 ml/min [facility] Work Phone: Estimated GFR (MDRD) Amer 67 mL/min >60 [facility] Work Phone: Comment on above: GFR Calc Estimated GFR (MDRD) Non-Af Amer 56 mL/min >60 [facility] Work Phone: Comment on above: Non- GFR Calc Platelets bldon 2022 Platelets (Bld) [#/Vol] 518 10*3/uL 150-450 [facility] Work Phone: Protein Test strip Ql (U)on 2022 Protein Ql (U) 30 mg/dl Negative [facility] Work Phone: Serum or plasma acetone koby urement (mass/volume)on 2022 Acetone [Mass/Vol] MODERATE NEG [facility] Work Phone: Serum or plasma albumin koby urement (mass/volume)on 2022 Albumin [Mass/Vol] 4.1 g/dL 3.2-5.0 [facility] Work Phone: Serum or plasma albumin/glob ulin mass ratioon 2022 Albumin/Globulin [Mass ratio] 0.8 {ratio} 0.9-2.4 [facility] Work Phone: Serum or plasma calcium koby urement (mass/volume)on 2022 Calcium [Mass/Vol] 9.4 mg/dL 8.5-10.1 [facility] Work Phone: Serum or plasma creatinine m easurement (mass/volume)on 2022 Creatinine [Mass/Vol] 1.62 mg/dL 0.70-1.30 [facility] Work Phone: Comment on above: The validity of the calculated GFR & GFRAA in patients over 70 years has not been determined. Clinical correlation is essential. Serum or plasma urea nitroge n measurement (mass/volume)on 2022 Urea nitrogen [Mass/Vol] 28 mg/dL 7-18 [facility] Work Phone: Squamous epithelial cells de tection in urine sediment by light microscopyon 2022 Epithelial cells.squamous LM Ql (Urine sed) 0 SEEN /hpf 0-5 [facility] Work Phone: Thin prep Papanicolaou smear with manual screeningon 2022 Thin prep Papanicolaou smear with manual screening 16 U/L 15-37 [facility] [facility] Work Phone: Thin prep Papanicolaou smear with manual screening 32 5-15 [facility] Work Phone: Urine blood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 Code 150-450 [facility] Work Phone: PMV by Perry 11.0 fL Invalid Interpretation Code 6.2-12.0 [facility] Work Phone: RDW-CA 13.0 % Invalid Interpretation Code 11.6-14.6 [facility] Work Phone: red blood cell distribution width, size density 39.2 fL Invalid Interpretation Code 35.1-43.9 [facility] Work Phone: WBC (Leukocytes) 5.8 10*3/uL Invalid Interpretation Code 4.4-11.0 [facility] Work Phone: Lab Report: Hemoglobin A1con 01-14-2017 HbA1c 11.6 % High 4.2-6.3 [facility] Work Phone: Lab Report: Lactic Acidon Lactate 1.8 mmol/L Invalid Interpretation Code 0.4-2.0 [facility] Work Phone: Lactate 6.0 mmol/L Critically high 0.4-2.0 [facility] [employer] [facility] Work Phone: Lactate 4.8 mmol/L Critically high 0.4-2.0 [facility] Work Phone: Lab Report: M R Staph Aureus DNA by PCRon 01-14-2017 INR in blood by coagulation Negative Invalid Interpretation Code Negative [facility] Work Phone: Lab Report: MRSA Wound DNA b y PCRon 01-14-2017 GE use only - for [employer] import when terms are not otherwise specified Negative Invalid Interpretation Code Negative [facility] Work Phone: SA RESULT Negative Negative [facility] Work Phone: Office Visiton 12-10-2016 Documentation of current medications (procedure) Done Invalid Interpretation Code [facility] Work Phone: Fall risk assessment No Invalid Interpretation Code [facility] Work Phone: Protein mass conc Done [facility] Work Phone: Chart Maintenance: Ralph pinon 11-12-2016 Urine, microalbumin mg/dL Invalid Interpretation Code [facility] Work Phone: Lab Report: Hemoglobin A1con 11-12-2016 HbA1c 12.0 % High 4.2-6.3 [facility] Work Phone: Lab Report: Microalb:Creat R atio,Random URon 11-12-2016 ACR (microalbumin/creatinin e) ratio Test not performed mg/g CRE Invalid Interpretation Code <30 mg/g CRE [facility] Work Phone: Albumin/Creatinine DL <= 20 mg/L Ratio (U) Test not performed mg/g CRE <30 mg/g CRE [facility] Work Phone: Urine, creatinine 38.10 mg/dL Invalid Interpretation Code NO RANGE EST. [facility] Work Phone: Urine, microalbumin < 5.0 mg/L Invalid Interpretation Code NO RANGE EST. [facility] Work Phone: Office Visit: Diabetes- [facility].on 11-12-2016 Adolescent depression screening assessment Adolescent depression screening assessment Invalid Interpretation Code [facility] Work Phone: Adult depression screening assessment Adolescent depression screening assessment [facility] Work Phone: Documentation of current medications (procedure) Done Invalid Interpretation Code [facility] Work Phone: Fall risk assessment No Invalid Interpretation Code [facility] Work Phone: Protein mass conc yes [facility] Work Phone: Smoking cessation education (procedure) yes Invalid Interpretation Code [facility] Work Phone: Tobacco smoking status NHIS Current Invalid Interpretation Code [facility] Work Phone: Tobacco smoking status NHIS Current every day smoker [facility] Work Phone: Tobacco use [facility] Current every day smoker Invalid Interpretation Code [facility] Work Phone: Influenza virus A and B and SARS-CoV-2 (COVID-19) Ag panel - Upper respiratory specim SARS-CoV-2 & FLU Antigen (Rapid) SARS-CoV-2 (COVID 19) [facility] Work Phone: Laboratory - Microbiology an d Antimicrobial susceptibility Respiratory pathogens DNA and RNA 12b panel LM+probe (Unsp spec) [facility] Work Phone: Throat Streptococcus pyogene s antigen detection by immunofluorescence S. pyogenes Ag IF Ql (Throat) [facility] Work Phone: Vital Signs Date Time Vital Sign Value Performing Clinician Facility 02-28-2025 08:50-0400 Body height 187.96 cm No Primary Care Physician [facility] 02-28-2025 08:50-0400 Body weight 58.8 kg No Primary Care Physician [facility] 02-28-2025 04:23-0400 Body mass index (BMI) [Ratio] 16.6 kg/m2 No Primary Care Physician [facility] 02-28-2025 04:00-0400 Body temperature 97.5 [degF] No Primary Care Physician [facility] 02-28-2025 04:00-0400 Diastolic blood pressure 79 mm[Hg] No Primary Care Physician [facility] 02-28-2025 04:00-0400 Heart rate 97 /min No Primary Care Physician [facility] 02-28-2025 04:00-0400 Respiratory rate 18 /min No Primary Care Physician [facility] 02-28-2025 04:00-0400 SaO2% (BldA) [Mass fraction] 97 % No Primary Care Physician [facility] 02-28-2025 04:00-0400 Systolic blood pressure 123 mm[Hg] No Primary Care Physician [facility] 02-27-2025 14:53-0400 Body temperature 97.9 [degF] No Primary Care Physician [facility] 02-27-2025 14:53-0400 Diastolic blood pressure 78 mm[Hg] No Primary Care Physician [facility] 02-27-2025 14:53-0400 Heart rate 99 /min No Primary Care Physician [facility] 02-27-2025 14:53-0400 Respiratory rate 19 /min No Primary Care Physician [facility] 02-27-2025 14:53-0400 SaO2% (BldA) [Mass fraction] 99 % No Primary Care Physician [facility] 02-27-2025 14:53-0400 Systolic blood pressure 101 mm[Hg] No Primary Care Physician [facility] 02-27-2025 12:26-0400 Body height 182.88 cm No Primary Care Physician [facility] 02-27-2025 12:26-0400 Body mass index (BMI) [Ratio] 18.3 kg/m2 No Primary Care Physician [facility] 02-27-2025 12:26-0400 Body weight 61.5 kg No Primary Care Physician [facility] 02-05-2025 14:00-0400 Diastolic blood pressure 76 mm[Hg] Dr. Keisha Handy DO Work Phone: [facility] 02-05-2025 14:00-0400 Heart rate 89 /min Dr. Keisha Handy DO Work Phone: [facility] 02-05-2025 14:00-0400 Respiratory rate 18 /min Dr. Keisha Handy DO Work Phone: [facility] 02-05-2025 14:00-0400 SaO2% (BldA) [Mass fraction] 98 % Dr. Keisha Hanyd DO Work Phone: [facility] 02-05-2025 10:15-0400 Body height 182.[address] Keisha Handy DO Work Phone: 2(432)693-010584 [place] [address] 02-05-2025 10:15-0400 Body weight 61.[address] Keisha Handy DO Work Phone: 2(591)072-530429 [place] [address] 02-05-2025 05:48-0400 Body mass index (BMI) [Ratio] 18.3 kg/m2 Dr. Keisha Handy DO Work Phone: 3(584)198-319384 [place] [address] 02-05-2025 04:00-0400 Diastolic blood pressure 75 mm[Hg] Dr. Keisha Handy DO Work Phone: 9(443)824-006929 [place] [address] 02-05-2025 04:00-0400 Heart rate 113 /min Dr. Keisha Handy DO Work Phone: 5(099)677-896629 [place] [address] 02-05-2025 04:00-0400 Respiratory rate 20 /min Dr. Keisha Handy DO Work Phone: 6(340)813-450829 [place] [address] 02-05-2025 04:00-0400 SaO2% (BldA) [Mass fraction] 100 % Dr. Keisha Handy DO Work Phone: 4(050)610-294729 [place] [address] 02-05-2025 04:00-0400 Systolic blood pressure 118 mm[Hg] Dr. Keisha Handy DO Work Phone: 6(692)592-412629 [place] [address] 02-05-2025 03:46-0400 Body temperature 97.9 [degF] Dr. Keisha Handy DO Work Phone: 8(019)754-638484 [place] [address] 02-05-2025 02:20-0400 Body height 182.[address] Keisha Handy DO Work Phone: 9(212)504-517729 [place] [address] 02-05-2025 02:20-0400 Body mass index (BMI) [Ratio] 18.3 kg/m2 Dr. Keisha Handy DO Work Phone: 5(321)424-395884 [place] [address] 02-05-2025 02:20-0400 Body weight 61.[address] Keisha Handy DO Work Phone: 6(867)765-003284 [place] [address] 01-26-2025 17:27-0400 Body temperature 97.8 [degF] Dr. Keisha Handy DO Work Phone: 4(355)346-542884 [place] [address] 01-26-2025 17:27-0400 Diastolic blood pressure 95 mm[Hg] Dr. Keisha Handy DO Work Phone: 7(087)961-909384 [place] [address] 01-26-2025 17:27-0400 Heart rate 97 /min Dr. Keisha Handy DO Work Phone: 8(629)690-829884 [place] [address] 01-26-2025 17:27-0400 Respiratory rate 14 /min Dr. Keisha Handy DO Work Phone: 7(623)665-542629 [place] [address] 01-26-2025 17:27-0400 SaO2% (BldA) [Mass fraction] 99 % Dr. Keisha Handy DO Work Phone: 9(574)496-369129 [place] [address] 01-26-2025 17:27-0400 Systolic blood pressure 125 mm[Hg] Dr. Keisha Handy DO Work Phone: 1(197)085-153129 [place] [address] 01-26-2025 11:24-0400 Body height 182.[address] Keisha Handy DO Work Phone: 3(131)025-021729 [place] [address] 01-26-2025 11:24-0400 Body mass index (BMI) [Ratio] 18.6 kg/m2 Dr. Keisha Handy DO Work Phone: 5(081)493-287284 [place] [address] 01-26-2025 11:24-0400 Body weight 62.[address] Keisha Handy DO Work Phone: 4(399)172-314484 [place] [address] 12-14-2024 02:20-0400 Body temperature 98.4 [degF] Dr. Keisha Handy DO Work Phone: 0(767)012-029484 [place] [address] 12-14-2024 02:20-0400 Diastolic blood pressure 68 mm[Hg] Dr. Keisha Handy DO Work Phone: 0(668)434-822984 [place] [address] 12-14-2024 02:20-0400 Heart rate 113 /min Dr. Keisha Handy DO Work Phone: 5(631)737-641784 [place] [address] 12-14-2024 02:20-0400 Respiratory rate 14 /min Dr. Keisha Handy DO Work Phone: 1(344)722-090284 [place] [address] 12-14-2024 02:20-0400 SaO2% (BldA) [Mass fraction] 96 % Dr. Keisha Handy DO Work Phone: 9(386)588-818984 [place] [address] 12-14-2024 02:20-0400 Systolic blood pressure 112 mm[Hg] Dr. Keisha Handy DO Work Phone: 3(593)664-286929 [place] [address] 12-13-2024 21:12-0400 Body height 187.[address] Keisha Handy DO Work Phone: 4(430)411-265429 [place] [address] 12-13-2024 21:12-0400 Body mass index (BMI) [Ratio] 14.6 kg/m2 Dr. Keisha Handy DO Work Phone: 1(633)683-887729 [place] [address] 12-13-2024 21:12-0400 Body weight 51.[address] Keisha Handy DO Work Phone: 0(321)550-355729 [place] [address] 12-12-2024 12:36-0400 Body mass index (BMI) [Ratio] 18.6 kg/m2 Dr. Keisha Handy DO Work Phone: 6(018)757-043729 [place] [address] 12-12-2024 12:36-0400 Body temperature 97 [degF] Dr. Keisha Handy DO Work Phone: 1(794)370-951784 [place] [address] 12-12-2024 12:36-0400 Body weight 62.[address] Keisha Handy DO Work Phone: 2(839)901-906584 [place] [address] 12-12-2024 12:36-0400 Diastolic blood pressure 82 mm[Hg] Dr. Keisha Handy DO Work Phone: 2(916)088-150384 [place] [address] 12-12-2024 12:36-0400 Heart rate 116 /min Dr. Keisha Handy DO Work Phone: 8(961)042-716384 [place] [address] 12-12-2024 12:36-0400 Respiratory rate 18 /min Dr. Keisha Handy DO Work Phone: 9(355)567-206684 [place] [address] 12-12-2024 12:36-0400 SaO2% (BldA) [Mass fraction] 100 % Dr. Keisha Handy DO Work Phone: 9(924)583-575184 [place] [address] 12-12-2024 12:36-0400 Systolic blood pressure 126 mm[Hg] Dr. Keisha Handy DO Work Phone: 3(708)652-292684 [place] [address] 11-11-2024 19:18-0400 Body temperature 97.8 [degF] Dr. Keisha Handy DO Work Phone: 3(401)190-767484 [place] [address] 11-11-2024 19:18-0400 Diastolic blood pressure 86 mm[Hg] Dr. Keisha Handy DO Work Phone: 4(307)860-354629 [place] [address] 11-11-2024 19:18-0400 Heart rate 102 /min Dr. Keisha Handy DO Work Phone: 6(896)910-819184 [place] [address] 11-11-2024 19:18-0400 Respiratory rate 18 /min Dr. Keisha Handy DO Work Phone: 6(969)251-112884 [place] [address] 11-11-2024 19:18-0400 SaO2% (BldA) [Mass fraction] 98 % Dr. Keisha Handy DO Work Phone: 3(121)558-015884 [place] [address] 11-11-2024 19:18-0400 Systolic blood pressure 128 mm[Hg] Dr. Keisha Handy DO Work Phone: 4(541)200-101484 [place] [address] 11-11-2024 17:46-0400 Body height 182.[address] Keisha Handy DO Work Phone: 6(023)233-509884 [place] [address] 11-11-2024 17:46-0400 Body mass index (BMI) [Ratio] 18.7 kg/m2 Dr. Keisha Handy DO Work Phone: 7(705)240-474784 [place] [address] 11-11-2024 17:46-0400 Body weight 62.[address] Keisha Handy DO Work Phone: [facility] 10-19-2024 05:19-0400 Body temperature 97.8 [degF] Dr. Keisha Handy DO Work Phone: 5(410)918-858184 [place] [address] 10-19-2024 05:19-0400 Diastolic blood pressure 81 mm[Hg] Dr. Keisha Handy DO Work Phone: 0(787)209-745284 [place] [address] 10-19-2024 05:19-0400 Heart rate 95 /min Dr. Keisha Handy DO Work Phone: 1(514)991-966284 [place] [address] 10-19-2024 05:19-0400 Respiratory rate 16 /min Dr. Keisha Handy DO Work Phone: 6(504)214-624783 [address] 10-19-2024 05:19-0400 SaO2% (BldA) [Mass fraction] 99 % Dr. Keisha Handy DO Work Phone: 6(199)954-700784 [place] [address] 10-19-2024 05:19-0400 Systolic blood pressure 127 mm[Hg] Dr. Keisha Handy DO Work Phone: 9(470)155-089584 [place] [address] 10-19-2024 00:09-0400 Body height 182.[address] Keisha Handy DO Work Phone: 8(230)513-724184 [place] [address] 10-19-2024 00:09-0400 Body mass index (BMI) [Ratio] 19.5 kg/m2 Dr. Keisha Handy DO Work Phone: 6(349)239-656384 [place] [address] 10-19-2024 00:09-0400 Body weight 65.[address] Keisha Handy DO Work Phone: 5(239)398-890384 [place] [address] 01-04-2023 00:24-0400 Diastolic blood pressure 81 mm[Hg] MD Deangelo Noel [facility] 01-04-2023 00:24-0400 Heart rate 87 /min MD Deangelo Noel [facility] 01-04-2023 00:24-0400 Respiratory rate 17 /min MD Deangelo Noel [facility] 01-04-2023 00:24-0400 SaO2% (BldA) [Mass fraction] 100 % [facility] 01-04-2023 00:24-0400 Systolic blood pressure 117 mm[Hg] MD Deangelo Noel [facility] 01-03-2023 22:18-0400 Body height 182.88 cm MD Deangelo Noel [facility] 01-03-2023 22:18-0400 Body mass index (BMI) [Ratio] 19.9 kg/m2 MD Bright [facility] 01-03-2023 22:18-0400 Body temperature 96.6 [degF] [facility] 01-03-2023 22:18-0400 Body weight 66.7 kg MD [facility] 12-09-2022 21:44-0400 Heart rate 110 /min [facility] 12-09-2022 21:44-0400 Respiratory rate 18 /min MD [facility] 12-09-2022 20:08-0400 SaO2% (BldA) [Mass fraction] 99 % MD [facility] 12-09-2022 18:04-0400 Body mass index (BMI) [Ratio] 20.4 kg/m2 [facility] 12-09-2022 18:04-0400 Body weight 62.7 kg MD Deangelo Noel [facility] 12-09-2022 17:39-0400 Body height 175.26 cm [facility] 12-09-2022 17:39-0400 Body temperature 97.9 [degF] MD Deangelo Noel [facility] 12-09-2022 17:39-0400 Diastolic blood pressure 63 mm[Hg] MD Deangelo Noel [facility] 12-09-2022 17:39-0400 Systolic blood pressure 94 mm[Hg] MD Deangelo Noel [facility] 12-03-2022 22:45-0400 Diastolic blood pressure 84 mm[Hg] MD Deangelo Noel [facility] 12-03-2022 22:45-0400 Heart rate 104 /min MD Deangelo Noel [facility] 12-03-2022 22:45-0400 Respiratory rate 18 /min [facility] 12-03-2022 22:45-0400 SaO2% (BldA) [Mass fraction] 97 % [facility] 12-03-2022 22:45-0400 Systolic blood pressure 127 mm[Hg] MD Deangelo Noel [facility] 12-03-2022 20:03-0400 Body height 172.72 cm [facility] 12-03-2022 20:03-0400 Body mass index (BMI) [Ratio] 22 kg/m2 MD [facility] 12-03-2022 20:03-0400 Body temperature 97.9 [degF] MD [facility] 12-03-2022 20:03-0400 Body weight 65.7 kg MD [facility] 11-17-2022 14:00-0400 Heart rate 115 /min [facility] 11-17-2022 14:00-0400 Respiratory rate 13 /min MD [facility] 11-17-2022 14:00-0400 SaO2% (BldA) [Mass fraction] 97 % MD [facility] 11-17-2022 00:52-0400 Body mass index (BMI) [Ratio] 18.1 kg/m2 [facility] 11-17-2022 00:52-0400 Body weight 60.7 kg MD Deangelo Noel [facility] 11-17-2022 00:10-0400 Body height 182.88 cm MD [facility] 11-17-2022 00:10-0400 Body temperature 97.9 [degF] MD [facility] 11-17-2022 00:10-0400 Diastolic blood pressure 62 mm[Hg] MD Deangelo Noel [facility] 11-17-2022 00:10-0400 Systolic blood pressure 120 mm[Hg] [facility] 10-13-2022 06:21-0500 Diastolic blood pressure 90 mm[Hg] MD [facility] 10-13-2022 06:21-0500 Systolic blood pressure 129 mm[Hg] MD [facility] 10-13-2022 03:49-0500 Body height 162.56 cm MD [facility] 10-13-2022 03:49-0500 Body mass index (BMI) [Ratio] 24.4 kg/m2 MD [facility] 10-13-2022 03:49-0500 Body temperature 97.7 [degF] MD Brig[facility] 10-13-2022 03:49-0500 Body weight 64.6 kg MD [facility] 10-13-2022 03:49-0500 Heart rate 120 /min MD [facility] 10-13-2022 03:49-0500 Respiratory rate 14 /min MD [facility] 10-13-2022 03:49-0500 SaO2% (BldA) [Mass fraction] 99 % MD [facility] 08-24-2022 23:11-0500 Diastolic blood pressure 82 mm[Hg] MD [facility] 08-24-2022 23:11-0500 Heart rate 120 /min MD [facility] 08-24-2022 23:11-0500 SaO2% (BldA) [Mass fraction] 99 % MD [facility] 08-24-2022 23:11-0500 Systolic blood pressure 126 mm[Hg] MD [facility] 08-24-2022 21:15-0500 Body temperature 98 [degF] MD [facility] 08-24-2022 21:15-0500 Respiratory rate 16 /min MD [facility] 08-24-2022 21:12-0500 Body height 162.56 cm MD [facility] 08-24-2022 21:12-0500 Body mass index (BMI) [Ratio] 24.7 kg/m2 MD [facility] 08-24-2022 21:12-0500 Body weight 65.4 kg MD [facility] 08-20-2022 14:36-0500 Body temperature 97.8 [degF] MD [facility] 08-20-2022 14:36-0500 Diastolic blood pressure 77 mm[Hg] MD [facility] 08-20-2022 14:36-0500 Heart rate 108 /min MD [facility] 08-20-2022 14:36-0500 Respiratory rate 16 /min MD [facility] 08-20-2022 14:36-0500 SaO2% (BldA) [Mass fraction] 97 % MD [facility] 08-20-2022 14:36-0500 Systolic blood pressure 111 mm[Hg] MD [facility] 08-20-2022 06:00-0500 Body weight 64.6 kg MD [facility] 08-19-2022 09:33-0500 Body height 182.88 cm [facility] Work Phone: 08-18-2022 15:00-0500 Inhaled oxygen flow rate 2 L/min MD [facility] 08-18-2022 11:46-0500 Body mass index (BMI) [Ratio] 20.3 kg/m2 MD [facility] 07-07-2022 20:35-0500 Diastolic blood pressure 93 mm[Hg] MD [facility] 07-07-2022 20:35-0500 Heart rate 114 /min MD [facility] 07-07-2022 20:35-0500 Respiratory rate 15 /min MD [facility] 07-07-2022 20:35-0500 SaO2% (BldA) [Mass fraction] 96 % MD [facility] 07-07-2022 20:35-0500 Systolic blood pressure 127 mm[Hg] MD Deangelo [facility] 07-07-2022 14:41-0500 Body mass index (BMI) [Ratio] 23.3 kg/m2 MD [facility] 07-07-2022 14:41-0500 Body temperature 98 [degF] MD [facility] 07-07-2022 14:41-0500 Body weight 69.42 kg [facility] 07-01-2022 03:13-0500 Diastolic blood pressure 85 mm[Hg] MD [facility] 07-01-2022 03:13-0500 Heart rate 135 /min [facility] 07-01-2022 03:13-0500 Respiratory rate 16 /min MD [facility] 07-01-2022 03:13-0500 SaO2% (BldA) [Mass fraction] 100 % [facility] 07-01-2022 03:13-0500 Systolic blood pressure 123 mm[Hg] MD [facility] 06-30-2022 22:31-0500 Body temperature 97.4 [degF] MD [facility] 06-30-2022 22:26-0500 Body height 177.8 cm [facility] Work Phone: 06-30-2022 22:26-0500 Body mass index (BMI) [Ratio] 23.1 kg/m2 MD [facility] 06-30-2022 22:26-0500 Body weight 73.3 kg MD [facility] 03-03-2022 08:30-0400 SaO2% (BldA) [Mass fraction] 98 % MD [facility] Work Phone: 03-03-2022 08:00-0400 Body temperature 97.9 [degF] MD [facility] Work Phone: 03-03-2022 08:00-0400 Diastolic blood pressure 67 mm[Hg] MD [facility] Work Phone: 03-03-2022 08:00-0400 Heart rate 101 /min MD Deangelo Noel [facility] Work Phone: 03-03-2022 08:00-0400 Respiratory rate 18 /min MD Deangelo Noel [facility] Work Phone: 03-03-2022 08:00-0400 Systolic blood pressure 111 mm[Hg] MD Deangelo Noel [facility] Work Phone: 03-03-2022 05:12-0400 Body weight 56.8 kg MD Bright Agu[facility] Work Phone: 2022 15:50-0400 Body height 177.8 cm MD Bright [facility] Work Phone: 2022 12:30-0400 Body mass index (BMI) [Ratio] 17.9 kg/m2 [facility] Work [facility]: 2022 12:00-0400 Body temperature 97.7 [degF] [facility] Work Phone: 2022 12:00-0400 Diastolic blood pressure 93 mm[Hg] [facility] Work Phone: 2022 12:00-0400 Heart rate 160 /min [facility] Work Phone: 2022 12:00-0400 Respiratory rate 22 /min [facility] Work Phone: 2022 12:00-0400 SaO2% (BldA) [Mass fraction] 98 % [facility] Work Phone: 2022 12:00-0400 Systolic blood pressure 138 mm[Hg] [facility] Work Phone: 2022 10:13-0400 Body height 177.8 cm [facility] Work Phone: 2022 10:13-0400 Body mass index (BMI) [Ratio] 19.3 kg/m2 [facility] Work Phone: 2022 10:13-0400 Body weight 61.23 kg [facility] Work Phone: 01-31-2022 10:10-0400 Body height 177.8 cm [facility] Work Phone: 01-31-2022 10:10-0400 Body mass index (BMI) [Ratio] 18.6 kg/m2 [facility] Work Phone: 01-31-2022 10:10-0400 Body temperature 98 [degF] [facility] Work Phone: 01-31-2022 10:10-0400 Body weight 58.96 kg [facility] Work Phone: 01-31-2022 10:10-0400 Diastolic blood pressure 80 mm[Hg] [facility] Work Phone: 01-31-2022 10:10-0400 Heart rate 75 /min [facility] Work Phone: 01-31-2022 10:10-0400 Respiratory rate 16 /min [facility] Work Phone: 01-31-2022 10:10-0400 SaO2% (BldA) [Mass fraction] 99 % [facility] Work Phone: 01-31-2022 10:10-0400 Systolic blood pressure 92 mm[Hg] [facility] Work Phone: 01-19-2022 09:41-0400 Body mass index (BMI) [Ratio] 16.5 kg/m2 [facility] Work Phone: 01-19-2022 09:41-0400 Body temperature 97.9 [degF] [facility] Work Phone: 01-19-2022 09:41-0400 Body weight 52.16 kg [facility] Work Phone: 01-19-2022 09:41-0400 Diastolic blood pressure 70 mm[Hg] [facility] Work Phone: 01-19-2022 09:41-0400 Heart rate 106 /min [facility] Work Phone: 01-19-2022 09:41-0400 Respiratory rate 16 /min [facility] Work Phone: 01-19-2022 09:41-0400 SaO2% (BldA) [Mass fraction] 97 % [facility] Work Phone: 01-19-2022 09:41-0400 Systolic blood pressure 105 mm[Hg] [facility] Work Phone: 01-15-2017 03:55-0400 Body surface area Derived from formula 240.08 mL/min Ge Stafford MD [facility] Work Phone: 12-10-2016 16:10-0400 BP Diastolic 66 mm[Hg] Edwina Quintero NP [facility] Work Phone: 12-10-2016 16:10-0400 BP Systolic 104 mm[Hg] Edwina Quintero NP [facility] Work Phone: 12-10-2016 16:10-0400 Pulse (Heart Rate) 86 /min Edwina Quintero NP [facility] Work Phone: 12-10-2016 16:10-0400 Respiratory Rate 14 /min Edwina Quintero NP [facility] Work Phone: 12-10-2016 16:10-0400 Weight 67.13 kg Edwina Quintero NP [facility] Work Phone: 11-12-2016 15:36-0400 BMI (Body Mass Index) 24.79 kg/m2 Edwina Quintero NP [facility] Work Phone: 11-12-2016 15:36-0400 Body Temperature 98.01 [degF] Edwina Quintero NP [facility] Work Phone: 11-12-2016 15:36-0400 Body Temperature 98 [degF] Edwina Quintero [employer] [facility] Work Phone: 11-12-2016 15:36-0400 BP Diastolic 69 mm[Hg] Edwina Quintero [employer] [facility] Work Phone: 11-12-2016 15:36-0400 BP Systolic 105 mm[Hg] Edwina Quintero [employer] [facility] Work Phone: 11-12-2016 15:36-0400 BSA (Body Surface Area) 1.75 m2 Edwina Quintero [employer] [facility] Work Phone: 11-12-2016 15:36-0400 Height 165.1 cm Edwina Quintero NP [facility] Work Phone: 11-12-2016 15:36-0400 Pulse (Heart Rate) 90 /min Edwina Quintero NP [facility] Work Phone: 11-12-2016 15:36-0400 Pulse Oximetry 98 % Edwina Quintero NP [facility] Work Phone: 11-12-2016 15:36-0400 Respiratory Rate 14 /min Edwina Quintero NP [facility] Work Phone: 11-12-2016 15:36-0400 Weight 67.58 kg Edwina Quintero [employer] [facility] Work Phone: 11-12-2016 15:36-0400 Weight 67.59 kg Edwina Quintero [employer] [facility] Work Phone: Encounters Encounter Date Encounter Type Care Provider Facility Start: 03-04-2025 End: 03-04-2025 Emergency department patient visit DR LIZ ROSE DO [facility] Start: 02-27-2025 End: 02-28-2025 ambulatory No Primary Care Physician Facility:[facility] Start: 02-27-2025 End: 02-28-2025 Evaluation and management of inpatient Dr. Marcelina Erickson MD -Intensive Care Unit Work Phone: Start: 02-05-2025 End: 02-05-2025 ambulatory Alo Juan Manuel Facility:[facility] Start: 02-05-2025 End: 02-05-2025 Evaluation and management of inpatient Dr. Sarah Oh MD -Intensive Care Unit Work Phone: Start: 01-26-2025 End: 01-26-2025 Emergency department patient visit Dr. Keisha Handy DO Work Phone: -Emergency Department Work Phone: Start: 12-18-2024 ambulatory Zebulun Beam VSC Facili ty:[facility] Start: 12-13-2024 End: 12-14-2024 Emergency department [...] Work Phone: Start: 10-10-2024 End: 10-10-2024 ambulatory Facility:[facility] Start: 01-03-2023 End: 01-04-2023 Emergency department patient visit MD Deangelo ORELLANA [facility]-Emergency Department Start: 12-09-2022 End: 12-09-2022 Emergency department patient visit MD Deangelo [facility]-Emergency Department Start: 12-03-2022 End: 12-03-2022 Emergency department patient visit MD Deangelo Noel [facility]-Emergency Department Start: 11-17-2022 End: 11-17-2022 Emergency department patient visit MD Deangelo Noel [facility]-Emergency Department Start: 10-13-2022 Non-patient / Non-visit MD Alessandra kapadia [facility] Start: 10-13-2022 End: 10-13-2022 ambulatory MD Bright [facility] Work Phone: Start: 10-13-2022 End: 10-13-2022 Patient encounter procedure MD Bright [facility] Start: 10-13-2022 End: 10-13-2022 Emergency department patient visit MD Bright [facility]-Emergency Department Start: 10-05-2022 Orders Only Deangelo garcía MD Work Phone: [facility] Start: 10-03-2022 Telephone encounter Deangelo canales MD Work Phone: [facility] Comment on above: Letter Start: 09-22-2022 Telephone encounter Phillip jiménez APRN.HISTORICAL SOCIETY DIRECTOR Work Phone: [facility] Comment on above: Appointment Start: 08-24-2022 End: 08-24-2022 [facility] department [facility] Start: 08-21-2022 Refill Phillip HINOJOSA RN.HISTORICAL SOCIETY DIRECTOR Work Phone: [facility] Comment on above: Refill Request Start: 08-20-2022 Non-patient / Non-visit MD Deangelo Escobar [facility] Start: 08-19-2022 Non-patient / Non-visit MD Deangelo Escobar [facility] Start: 08-18-2022 Non-patient / Non-visit MD Deangelo Escobar [facility]patient [facility] Start: 08-18-2022 End: 08-20-2022 Evaluation and management of inpatient MD Deangelo [facility] 2 Start: 07-09-2022 Telephone encounter Deangelo canales MD Work Phone: [facility] Comment on above: Insurance Authorizat ion (Maria Teresa Ballesteros ) Start: 07-07-2022 End: 07-07-2022 Emergency department patient visit MD Bright [facility]-Emergency Department Start: 07-07-2022 End: 07-07-2022 Patient encounter lilo Caldera APRN.HISTORICAL SOCIETY DIRECTOR Work Phone: [facility] Comment on above: Chest pain, unspecif ied type (Primary Dx); High blood sugar APPOINTMENT CANCELLE D (Primary Dx); Uncontrolled type 1 diabetes mellitus with hypoglycemia without coma (HCC); Type I (juvenile type) diabetes mellitus without mention of complication, not stated as uncontrolled (HCC) Start: 06-30-2022 End: 07-01-2022 Emergency department patient visit MD Bright [facility]-Emergency Department Start: 06-11-2022 Telephone encounter Deangelo canales MD Work Phone: [facility] Comment on above: Results Start: 06-09-2022 Telephone encounter Deangelo canales MD Work Phone: [facility] Comment on above: Urgent value Start: 06-07-2022 Telephone encounter Radha Hameed APRN.HISTORICAL SOCIETY DIRECTOR Work Phone: [facility] Comment on above: Medication Problem Refill Request Start: 03-04-2022 Patient Outreach Meena alexandra APRN.HISTORICAL SOCIETY DIRECTOR Work Phone: [facility] Comment on above: Transition Of Care Start: 03-03-2022 [facility] / [facility] Start: 2022 Non-patient / [facility]-visit [facility] Start: 2022 End: 03-03-2022 Evaluation and management of inpatient [facility]-Intensive Care Unit Start: 01-31-2022 End: 01-31-2022 Emergency department patient visit [facility] Start: 01-19-2022 End: 01-19-2022 Emergency department patient visit [facility]-Emergency Department Start: 11-17-2021 ambulatory Phillip HINOJOSA RN.HISTORICAL SOCIETY DIRECTOR Work Phone: [facility] Comment on above: PHMA/Care Gap Outrea ch Start: 06-26-2021 Telephone encounter Deangelo canales MD Work Phone: [facility] Comment on above: Insurance Authorizat ion Start: 04-21-2018 End: 04-22-2018 Patient encounter AUBREY DUNCAN [facility] Start: 03-20-2018 End: 03-23-2018 Evaluation and management of inpatient GLO KOENIG [facility] Start: 01-13-2018 End: 01-14-2018 Ambulatory [facility] Start: 12-27-2017 End: 12-27-2017 Ambulatory [facility] Start: 12-21-2017 End: 12-22-2017 Ambulatory [facility] Start: 12-17-2017 End: 12-18-2017 Ambulatory [facility] Start: 12-17-2017 End: 12-17-2017 Ambulatory [facility] Start: 12-10-2017 End: 12-11-2017 Ambulatory [facility] Start: 11-20-2017 End: 12-06-2017 Evaluation and management of inpatient [facility] Procedures Date Procedure Procedure Detail Performing Clinician Start: 02-28-2025 Estimated creatinine clearance No Primary Care Physician Start: 02-27-2025 Serum inorganic phos phate measurement No Primary Care Physician Start: 02-27-2025 Urnls dip stick/tabl et reagent [...] Start: 01-03-2023 Plain chest X-ray MD Lior matias [facility] Start: 12-09-2022 Plain chest X-ray MD Lior matias [facility] Start: 12-03-2022 CT angiography of ch est with contrast MD Deangelo Noel [facility] Start: 12-03-2022 Plain chest X-ray MD Lior matias [facility] Start: 11-17-2022 CT angiography of ch est with contrast MD Deangelo Noel [facility] Start: 11-17-2022 Plain chest X-ray MD Lior matias [facility] Start: 10-13-2022 Plain chest X-ray MD Lior matias [facility] Start: 08-18-2022 Plain chest X-ray MD Lior matias [facility] Start: 07-07-2022 [facility] Start: 06-30-2022 Plain chest X-ray MD Lior matias [facility] Start: 01-19-2022 Plain X-ray of tibia and fibula Start: 06-22-2018 Adult depression scr eening assessment Phillip Howe LEVERS LACE MACHINE OPERATOR.HISTORICAL SOCIETY DIRECTOR Work Phone: Start: 11-12-2016 End: 11-12-2016 *Microalbumin, Creatine Ratio, rand urine Edwina Quintero STEEL ANALYST Work Phone: Start: 11-12-2016 End: 11-13-2016 HbA1c Edwina Quintero STEEL ANALYST Work Phone: Respiratory Panel (PCR) MD Alex [...] profile DTAP,TDAP,TD (8 - Td or Tdap) [facility] Start: 02-28-2025 Patient discharge [facility] Start: 02-27-2025 Care regimes management [facility] Start: 02-27-2025 Notification of physician [facility] Start: 02-27-2025 [facility] Start: 02-27-2025 Assessment of risk of venous thromboembolism [facility] Start: 02-27-2025 Care regimes management [facility] Start: 02-27-2025 Insertion of catheter into peripheral vein [facility] Start: 02-27-2025 Lab findings surveillance [facility] Start: 02-27-2025 Measuring intake and output [facility] Start: 02-27-2025 Nil by mouth [facility] Start: 02-27-2025 Notification of physician [facility] Start: 02-27-2025 Patient referral to [facility] Start: 02-27-2025 Providing care according to standard [facility] Start: 02-27-2025 Vital signs measurements [facility] Start: 02-27-2025 End: 02-27-2025 [facility] Start: 02-27-2025 Following clinical pathway protocol [facility] Start: 02-27-2025 Gas panel - Venous blood [facility] Start: 02-27-2025 Verification routine [facility] Start: 02-27-2025 Admission procedure [facility] Start: 02-27-2025 Hospital admission, emergency, from emergency room, medical nature [facility] Start: 02-27-2025 Patient referral to [facility] Start: 02-05-2025 Patient discharge [facility] Start: 02-05-2025 End: 02-05-2025 [facility] Start: 02-05-2025 Care regimes management [facility] Start: 02-05-2025 Notification of physician [facility] Start: 02-05-2025 Assessment of risk of venous thromboembolism [facility] Start: 02-05-2025 Continuous pulse oximetry [facility] Start: 02-05-2025 End: 02-05-2025 Following clinical pathway protocol [facility] Start: 02-05-2025 Incentive spirometry [facility] Start: 02-05-2025 Inhalation therapy procedure [facility] Start: 02-05-2025 Insertion of catheter into peripheral vein [facility] Start: 02-05-2025 Introduction of urinary catheter [facility] Start: 02-05-2025 Lab findings surveillance [facility] Start: 02-05-2025 Measuring intake and output [facility] Start: 02-05-2025 Notification of physician [facility] Start: 02-05-2025 Oxygen therapy [facility] Start: 02-05-2025 Patient education [facility] Start: 02-05-2025 Patient referral to dietitian [facility] Start: 02-05-2025 Providing care according to standard [facility] Start: 02-05-2025 Provision of activity privileges [facility] Start: 02-05-2025 Referral to service [facility] Start: 02-05-2025 Tobacco use cessation education [facility] Start: 02-05-2025 Vital signs measurements [facility] Start: 02-05-2025 [facility] Start: 02-05-2025 Admission procedure [facility] Start: 02-05-2025 Hospital admission, emergency, from emergency room, medical nature [facility] Start: 02-05-2025 Verification routine [facility] Start: 02-05-2025 Serum inorganic phosphate measurement [facility] Start: 01-26-2025 [facility] Start: 01-26-2025 [facility] Start: 12-14-2024 [facility] Start: 12-12-2024 [facility] Start: 11-11-2024 [facility] Start: 10-19-2024 [facility] Start: 10-19-2024 [facility] Start: 08-25-2023 ANNUAL PCP TEAM CHRONIC DISEASE VISIT ANNUAL PCP TEAM CHRONIC DISEASE VISIT [facility] Start: 07-07-2023 ANNUAL PCP TEAM CHRONIC DISEASE VISIT ANNUAL PCP TEAM CHRONIC DISEASE VISIT [facility] Start: 06-09-2023 ANNUAL PCP TEAM CHRONIC DISEASE VISIT ANNUAL PCP TEAM CHRONIC DISEASE VISIT [facility] Start: 06-09-2023 Hepatitis B surface antibody level LDL CHOLESTEROL [facility] Start: 01-03-2023 [facility] Start: 12-09-2022 [facility] Start: 12-04-2022 [facility] Start: 12-03-2022 [facility] Start: 11-18-2022 [facility] Start: 11-17-2022 [facility] Start: 10-13-2022 Assay of troponin quantitative ASSAY OF TROPONIN QUANT [facility] Start: 10-13-2022 Basic metabolic panel calcium total METABOLIC PANEL TOTAL CA [facility] Start: 10-13-2022 Blood count complete auto&auto difrntl wbc COMPLETE CBC W/AUTO DIFF WBC [facility] Start: 10-13-2022 Ecg routine ecg w/least 12 lds trcg only w/o i&r ELECTROCARDIOGRAM TRACING [facility] Start: 10-13-2022 Iv infusion hydration each additional hour HYDRATE IV INFUSION ADD-ON [facility] Start: 10-13-2022 Iv infusion hydration initial 31 min-1 hour HYDRATION IV INFUSION INIT [facility] Start: 10-13-2022 Radiologic exam chest single view X-RAY EXAM CHEST 1 VIEW [facility] Start: 09-09-2022 Hemoglobin A1c/Hemoglobin.total in Blood HBA1C [facility] Start: 08-20-2022 Patient discharge [facility] Start: 08-19-2022 Care planning and problem solving actions [facility] Start: 08-19-2022 Care regimes management [facility] Start: 08-19-2022 Notification of physician [facility] Start: 08-19-2022 [facility] Start: 08-18-2022 End: 08-19-2022 [facility] Start: 08-18-2022 Ambulation without limitation [facility] Start: 08-18-2022 Assessment of risk of venous thromboembolism [facility] Start: 08-18-2022 Continuous pulse oximetry [facility] Start: 08-18-2022 End: 08-18-2022 Following clinical pathway protocol [facility] Start: 08-18-2022 Inhalation therapy procedure [facility] Start: 08-18-2022 Insertion of catheter into peripheral vein [facility] Start: 08-18-2022 Lab findings surveillance [facility] Start: 08-18-2022 Measuring intake and output [facility] Start: 08-18-2022 Notification of physician [facility] Start: 08-18-2022 Patient education [facility] Start: 08-18-2022 Patient referral to dietitian [facility] Start: 08-18-2022 Providing care according to standard [facility] Start: 08-18-2022 Vital signs measurements [facility] Start: 08-18-2022 Admission procedure [facility] Start: 08-09-2022 DEPRESSION ASSESSMENT DEPRESSION ASSESSMENT [facility] Start: 07-07-2022 [facility] Start: 06-30-2022 [facility] Start: 06-25-2022 ANNUAL PCP TEAM CHRONIC DISEASE VISIT ANNUAL PCP TEAM CHRONIC DISEASE VISIT [facility] Start: 04-09-2022 Influenza vaccination INFLUENZA (#1) [facility] Start: 03-03-2022 Patient discharge [facility] Work Phone: Start: 03-03-2022 Care regimes management [facility] Work Phone: Start: 03-03-2022 Notification of physician [facility] Work Phone: Start: 03-03-2022 Patient referral to dietitian [facility] Work Phone: Start: 03-03-2022 [facility] Work Phone: Start: 2022 [facility] Work Phone: Start: 2022 Application of intermittent pneumatic compression device [facility] Work Phone: Start: 2022 Assessment of risk of venous thromboembolism [facility] Work Phone: Start: 2022 Continuous pulse oximetry [facility] Work Phone: Start: 2022 End: 2022 Following clinical pathway protocol [facility] Work Phone: Start: 2022 Insertion of catheter into peripheral vein [facility] Work Phone: Start: 2022 Lab findings surveillance [facility] Work Phone: Start: 2022 Measuring intake and output [facility] Work Phone: Start: 2022 Notification of physician [facility] Work Phone: Start: 2022 Patient education [facility] Work Phone: Start: 2022 Patient referral to dietitian [facility] Work Phone: Start: 2022 Providing care according to standard [facility] Work Phone: Start: 2022 Vital signs measurements [facility] Work Phone: Start: 2022 [facility] Work Phone: Start: 2022 Blood chemistry [facility] Work Phone: Start: 2022 Verification routine [facility] Work Phone: Start: 2022 Admission procedure [facility] Work Phone: Start: 2022 Urinalysis complete panel - Urine [facility] Work Phone: Start: 2022 End: 2022 [facility] Work Phone: Start: 2022 [facility] Work Phone: Start: 01-08-2022 Hepatitis B screening URINE ALBUMIN:CREATININE RATIO [facility] Start: 01-08-2022 Hepatitis B surface antibody level LDL CHOLESTEROL [facility] Start: 11-17-2021 End: 01-17-2022 ALBUMIN/CREAT RATIO RND UR ALBUMIN/CREAT RATIO RND UR Lab Routine Uncontrolled type 1 diabetes mellitus with hypoglycemia without coma (HCC) Expected: 11/17/2021, Expires: 01/17/2022 [facility] Work Phone: Comment on above: Expected: 11/17/2021, Expires: Start: 08-09-2021 DEPRESSION ASSESSMENT DEPRESSION ASSESSMENT [facility] Start: 04-10-2021 Hemoglobin A1c/Hemoglobin.total in Blood HBA1C [facility] Start: 09-22-2020 3 comp foot exam completed DIABETIC FOOT EXAM [facility] Start: 06-22-2019 Adult depression screening assessment DEPRESSION SCREENING [facility] Start: 05-11-2017 Hepatitis C antibody, confirmatory test DILATED RETINAL EXAM [facility] Start: 03-15-2017 End: 03-15-2017 Appointment [facility]ointment [facility] Work Phone: Start: 03-15-2017 End: 03-15-2017 Appointment [facility]ointment [facility] Work Phone: Start: 12-10-2016 End: 12-10-2016 Appointment Appointment [facility] Work Phone: Start: 12-10-2016 End: 12-12-2016 *CMP Complete Metabolic Panel *CMP Complete Metabolic Panel [facility] Work Phone: Start: 12-10-2016 End: 12-12-2016 HbA1c *HgA1C [facility] Work Phone: Start: 12-10-2016 End: 12-12-2016 Lipid panel [AGGREGATE] *Lipid Profile [facility] Work Phone: Start: 12-10-2016 End: 12-12-2016 Office/outpatient visit, est, level 3 [id number] Vst-Est Level III [facility] Work Phone: Start: 11-12-2016 End: 11-12-2016 *CMP Complete Metabolic Panel *CMP Complete Metabolic Panel [facility] Work Phone: Start: 11-12-2016 End: 11-12-2016 *Microalbumin, Creatine Ratio, rand urine *Microalbumin, Creatine Ratio, rand urine [facility] Work Phone: Start: 11-12-2016 End: 11-13-2016 [facility]c [facility] Work Phone: Start: 11-12-2016 End: 11-12-2016 Lipid panel [AGGREGATE] *Lipid Profile [facility] Work Phone: Start: 2015 HEPATITIS C SCREENING HEPATITIS C SCREENING [facility] Start: 2015 HIV SCREENING HIV SCREENING [facility] Start: 10-10-2013 PNEUMOCOCCAL (2 - PPSV23 if available, else PCV20) PNEUMOCOCCAL (2 - PPSV23 if available, else PCV20) [facility] Start: 10-10-2013 PNEUMOCOCCAL (2 - PPSV23 or PCV20) PNEUMOCOCCAL (2 - PPSV23 or PCV20) [facility] Start: 10-02-2013 HPV VACCINE (3 - Male 3-dose series) HPV VACCINE (3 - Male 3-dose series) [facility] Start: 2013 ONE PNEUMOVAX PRIOR TO AGE 65 ONE PNEUMOVAX PRIOR TO AGE 65 [facility] Start: 12-05-2012 PNEUMOCOCCAL (2 - PPSV23 if available, else PCV20) PNEUMOCOCCAL (2 - PPSV23 if available, else PCV20) [facility] Start: 2011 PEDS TO ADULT TRANSITION ANNUAL ASSESSMENT PEDS TO ADULT TRANSITION ANNUAL ASSESSMENT [facility] Start: 2009 PEDS TO ADULT TRANSITION INITIAL DISCUSSION PEDS TO ADULT TRANSITION INITIAL DISCUSSION [facility] Start: 2007 MENINGOCOCCAL B: Consider based on risk (1 of 2 - Risk Bexsero 2-dose series) MENINGOCOCCAL B: Consider based on risk (1 of 2 - Risk Bexsero 2-dose series) [facility] Start: 2002 COVID-19 VACCINE (1) COVID-19 VACCINE (1) [facility] Start: 1997 COVID-19 VACCINE (#1) COVID-19 VACCINE (#1) [facility] Anion gap in Serum o r Plasma [facility] Anion gap in Serum o r Plasma [facility] Anion gap measurement [facility] Work Phone: Beta hydroxybutyrate [Mass/volume] in Serum or Plasma [facility] Beta hydroxybutyrate [Mass/volume] in Serum or Plasma [facility] Bilirubin measuremen t, urine [facility] BUN/Creatinine ratio [facility] Work Phone: BUN/Creatinine ratio [facility] BUN/Creatinine ratio [facility] Calcium [Mass/volume ] in Serum or Plasma [facility] Work Phone: Calcium [Mass/volume ] in Serum or Plasma [facility] Calcium [Mass/volume ] in Serum or Plasma [facility] Carbon dioxide, tota l [Moles/volume] in Central venous blood [facility] Carbon dioxide, tota l [Moles/volume] in Central venous blood [facility] Carbon dioxide, tota l [Moles/volume] in Serum or Plasma [facility] Work Phone: Chloride [Moles/volu me] in Serum or Plasma [facility] Work Phone: Creatinine [Mass/volume] in Serum or Plasma [facility] Creatinine [Mass/volume] in Serum or Plasma [facility] Creatinine [Moles/volume] in Serum or Plasma [facility] Work Phone: Erythrocyte mean corpuscular volume determination [facility] Glucose [Mass/volume ] in Serum or Plasma [facility] Work Phone: Glucose [Mass/volume ] in Serum or Plasma [facility] Glucose [Mass/volume ] in Serum or Plasma [facility] Hematocrit [Volume Fraction] of Blood [facility] Hemoglobin [Mass/volume] in Blood [facility] Hemoglobin [Presence ] in Urine [facility] Leukocytes [#/volume ] in Blood [facility] Magnesium measurement [facility] Mean corpuscular hemoglobin concentration determination [facility] Mean corpuscular hemoglobin determination [facility] Measurement of keton es in urine using dipstick [facility] Measurement of renal function [facility] Work Phone: Measurement of renal function [facility] Measurement of renal function [facility] Microscopic urinalysis [facility] Neutrophil count [facility] Neutrophil percent differential count [facility] Organism count, microscopic method [facility] Patient Education [facility] Work Phone: Patient referral [facility] Work Phone: pH of Urine [facility] Platelets [#/volume] in Blood [facility] Potassium [Moles/volume] in Serum or Plasma [facility] Work Phone: Potassium measurement [facility] Potassium measurement [facility] Red blood cell count [facility] Red cell distributio n width determination [facility] Serum chloride measurement [facility] Serum chloride measurement [facility] Sodium [Moles/volume ] in Serum or Plasma [facility] Work Phone: Sodium measurement [facility] Sodium measurement [facility] Specific gravity of Urine [facility] Urea nitrogen [Mass/volume] in Serum or Plasma [facility] Work Phone: Urea nitrogen [Mass/volume] in Serum or Plasma [facility] Urea nitrogen [Mass/volume] in Serum or Plasma [facility] Urine dipstick for glucose [facility] Urine dipstick for leukocyte esterase [facility] Urine dipstick for nitrite [facility] Urine dipstick for protein [facility] Urine examination [facility] Urine microscopy: epithelial cells [facility] Urine microscopy: re d cells [facility] Urobilinogen [Presen ce] in Urine [facility] White blood cell count [facility] [facility] Immunization Date Immunization Notes Care Provider [facility] 06-09-2022 influenza, injectabl e, quadrivalent, contains preservative Deangelo Noel MD Work Phone: [facility] 06-25-2021 influenza, injectabl e, quadrivalent, contains preservative Phillip Charles LEVERS LACE MACHINE OPERATOR.HISTORICAL SOCIETY DIRECTOR Work Phone: [facility] 10-01-2020 tetanus toxoid, reduced diphtheria toxoid, and acellular pertussis vaccine, adsorbed Phillip Charles LEVERS LACE MACHINE OPERATOR.HISTORICAL SOCIETY DIRECTOR Work Phone: [facility] 06-28-2019 influenza, injectabl e, quadrivalent, contains preservative Phillip Charles LEVERS LACE MACHINE OPERATOR.HISTORICAL SOCIETY DIRECTOR Work Phone: [facility] 11-20-2017 tetanus toxoid, reduced diphtheria toxoid, and acellular pertussis vaccine, adsorbed [facility] 05-18-2017 influenza, injectabl e, quadrivalent, preservative free Dr. Keisha Handy DO Work Phone: [facility] 05-18-2017 influenza, seasonal, injectable [facility] 08-28-2015 influenza, injectabl e, quadrivalent, preservative free Phillip Charles LEVERS LACE MACHINE OPERATOR.HISTORICAL SOCIETY DIRECTOR Work Phone: [facility] 08-09-2015 influenza, injectabl e, quadrivalent, preservative free Dr. Keisha Handy DO Work Phone: [facility] 08-09-2015 influenza, seasonal, injectable [facility] 06-13-2014 influenza, seasonal, injectable Phillip Charles LEVERS LACE MACHINE OPERATOR.HISTORICAL SOCIETY DIRECTOR Work Phone: [facility] 06-01-2013 human papilloma viru s vaccine, quadrivalent Phillip Charles LEVERS LACE MACHINE OPERATOR.HISTORICAL SOCIETY DIRECTOR Work Phone: [facility] Work Phone: 06-01-2013 influenza virus vaccine, unspecified formulation Phillip Charles LEVERS LACE MACHINE OPERATOR.HISTORICAL SOCIETY DIRECTOR Work Phone: [facility] Work Phone: 06-01-2013 Meningococcal, MCV4, unspecified conjugate formulation(groups A, C, Y and W-135) Phillip Charles LEVERS LACE MACHINE OPERATOR.HISTORICAL SOCIETY DIRECTOR Work Phone: [facility] Work Phone: 10-10-2012 human papilloma viru s vaccine, quadrivalent Phillip Charles LEVERS LACE MACHINE OPERATOR.HISTORICAL SOCIETY DIRECTOR Work Phone: [facility] 10-10-2012 pneumococcal conjuga te vaccine, 13 valent Phillip Charles LEVERS LACE MACHINE OPERATOR.HISTORICAL SOCIETY DIRECTOR Work Phone: [facility] 06-03-2010 influenza virus vaccine, unspecified formulation Phillip Charles LEVERS LACE MACHINE OPERATOR.HISTORICAL SOCIETY DIRECTOR Work Phone: [facility] 01-02-2009 Meningococcal, MCV4, unspecified conjugate formulation(groups A, C, Y and W-135) Phillip Charles LEVERS LACE MACHINE OPERATOR.HISTORICAL SOCIETY DIRECTOR Work Phone: [facility] Work Phone: 01-02-2009 tetanus toxoid, reduced diphtheria toxoid, and acellular pertussis vaccine, adsorbed Phillip Charles LEVERS LACE MACHINE OPERATOR.HISTORICAL SOCIETY DIRECTOR Work Phone: [facility] Work Phone: 06-17-2007 influenza virus vaccine, unspecified formulation Phillip Charles LEVERS LACE MACHINE OPERATOR.[facility] Work Phone: [facility] Work Phone: 06-28-2003 diphtheria, tetanus toxoids and pertussis vaccine Phillip Charles LEVERS LACE MACHINE OPERATOR.[facility] Work Phone: [facility] Work Phone: 06-28-2003 poliovirus vaccine, inactivated Phillip Charles LEVERS LACE MACHINE OPERATOR.[facility] Work Phone: [facility] Work Phone: 04-24-2002 hepatitis B vaccine, pediatric or pediatric/adolescent dosage Phillip Charles LEVERS LACE MACHINE OPERATOR.[facility] Work Phone: [facility] Work Phone: 04-24-2002 measles, mumps and rubella virus vaccine Phillip Charles LEVERS LACE MACHINE OPERATOR.[facility] Work Phone: [facility] Work Phone: 03-18-2000 diphtheria, tetanus toxoids and pertussis vaccine Phillip Charles LEVERS LACE MACHINE OPERATOR.[facility] Work Phone: [facility] Work Phone: 03-18-2000 haemophilus influenz ae type b vaccine, HbOC conjugate Phillip Charles LEVERS LACE MACHINE OPERATOR.[facility] Work Phone: [facility] Work Phone: 03-18-2000 hepatitis B vaccine, pediatric or pediatric/adolescent dosage Phillip Charles LEVERS LACE MACHINE OPERATOR.HISTORICAL SOCIETY DIRECTOR Work Phone: [facility] Work Phone: 03-18-2000 poliovirus vaccine, inactivated Phillip Charles LEVERS LACE MACHINE OPERATOR.[facility] Work Phone: [facility] Work Phone: 06-10-1998 measles, mumps and rubella virus vaccine Phillip Charles LEVERS LACE MACHINE OPERATOR.HISTORICAL SOCIETY DIRECTOR Work Phone: [facility] Work Phone: 1997 diphtheria, tetanus toxoids and pertussis vaccine Phillip Charles LEVERS LACE MACHINE OPERATOR.[facility] Work Phone: [facility] Work Phone: 1997 haemophilus influenz ae type b vaccine, HbOC conjugate Phillip Charles LEVERS LACE MACHINE OPERATOR.HISTORICAL SOCIETY DIRECTOR Work Phone: [facility] Work Phone: 1997 diphtheria, tetanus toxoids and pertussis vaccine Phillip Charles LEVERS LACE MACHINE OPERATOR.HISTORICAL SOCIETY DIRECTOR Work Phone: [facility] Work Phone: 1997 haemophilus influenz ae type b vaccine, HbOC conjugate Phillip Charles LEVERS LACE MACHINE OPERATOR.[facility] Work Phone: [facility] Work Phone: 1997 poliovirus vaccine, inactivated Phillip Charles LEVERS LACE MACHINE OPERATOR.[facility] Work Phone: [facility] Work Phone: 1997 diphtheria, tetanus toxoids and pertussis vaccine Phillip Charles LEVERS LACE MACHINE OPERATOR.HISTORICAL SOCIETY DIRECTOR Work Phone: [facility] Work Phone: 1997 haemophilus influenz ae type b vaccine, HbOC conjugate Phillip Charles LEVERS LACE MACHINE OPERATOR.HISTORICAL SOCIETY DIRECTOR Work Phone: [facility] Work Phone: 1997 hepatitis B vaccine, pediatric or pediatric/adolescent dosage Phillip Charles LEVERS LACE MACHINE OPERATOR.HISTORICAL SOCIETY DIRECTOR Work Phone: [facility] Work Phone: 1997 poliovirus vaccine, inactivated Phillip Charles LEVERS LACE MACHINE OPERATOR.[facility] Work Phone: [facility] Work Phone: Payers Date Payer Category Payer Private Health Insurance [id number] 2024 Self-pay [id number] 2024 Medicaid [id number] 2021 Medicaid [employer] [id number] 2021-Present [phone] [address] [place] [address] Medicaid [id number] 2021 Medicaid [id number] 1997 Unknown [id number] Medicaid [id number] Medicaid [id number] Unknown [id number] Unknown [id number] Unknown [id number] Unknown [id number] Unknown [id number] 462 Unknown [id number] 462 Unknown [id number] 462 Unknown [id number] 462 Unknown [id number] 462 Unknown [id number] 462 Unknown [id number] 462 Unknown [id number] 462 Social History Date Type Detail Facility Start: 06-22-2018 End: 06-09-2022 Tobacco smoking status NHIS Never smoked tobacco [facility] History of tobacco use Cigarette Smoker [facility] History of tobacco use Cigar Smoker [facility] Start: 06-22-2018 End: 06-09-2022 Cigarettes smoked current (pack per day) - Reported 1 [facility] Start: 06-22-2018 End: 06-09-2022 Tobacco use and exposure User of smokeless tobacco [facility] History of tobacco use Chews Tobacco [facility] Start: 09-18-2021 End: 08-25-2022 Alcohol intake Current drinker of alcohol (finding) [facility] Start: 04-12-2018 History SDOH Alcohol Comment once a year [facility] Start: 05-11-2018 Education 13 [facility] Start: 08-28-2015 End: 06-09-2022 Tobacco Comment dad smokes inside and outside. Dad trying to quit. patient chews and smokes also [facility] Start: 1995 Sex Assigned At Not on file [facility] Start: 08-19-2021 End: 06-09-2022 Exposure to SARS-CoV-2 (event) Not sure [facility] Start: 01-31-2022 End: 01-03-2023 Tobacco smoking status NHIS Unknown if ever smoked [facility] Start: 11-25-2020 None [facility] Start: 11-25-2020 With Family [facility] Start: 11-25-2020 Cigarettes;Chew [facility] Start: 1995 Sex Assigned At Male [facility] Start: 02-21-2022 End: 03-03-2022 Exposure to SARS-CoV-2 (event) Unable to assess [facility] Work Phone: Start: 10-19-2024 End: 02-28-2025 Tobacco smoking status NHIS Current some day smoker [facility] Start: 10-19-2024 End: 03-04-2025 Sex Male (finding) [facility] Tobacco smoking status [facility] Medical Equipment Procedure Code Equipment Code Equipment Original Text Equipment Identifier Dates INSULIN PEN NEEDLE [id number] Start: 01-16-2014 End: 07-07-2022 Comment on above: [...] 12-23-2017 Pen Needle, Diabetic (Comfort Ez Pen [place]) 31 gauge x 5/16 needle Start: 12-22-2017 End: 12-23-2017 Pen Needle, Diabetic (Comfort Ez Pen [place]) 31 gauge x 5/16 needle Start: 12-23-2017 End: 12-23-2017 Blood Sugar Diagnostic (Freestyle Lite Strips) strip Start: 12-23-2017 End: 12-23-2017 Pen Needle, Diabetic (Comfort Ez Pen [place]) 31 gauge x 5/16 needle Start: 12-22-2017 End: 12-23-2017 Pen Needle, Diabetic (Comfort Ez Pen [place]) 31 gauge x 5/16 needle Start: 12-23-2017 End: 12-23-2017 Blood Sugar Diagnostic (Freestyle Lite Strips) strip Start: 12-23-2017 End: 12-23-2017 Pen Needle, Diabetic (Comfort Ez Pen [place]) 31 gauge x 5/16 needle Start: 12-22-2017 End: 12-23-2017 Pen Needle, Diabetic (Comfort Ez Pen [place]) 31 gauge x 5/16 needle Start: 12-23-2017 End: 12-23-2017 Blood Sugar Diagnostic (Freestyle Lite Strips) strip Start: 12-23-2017 End: 12-23-2017 Pen Needle, Diabetic (Comfort Ez Pen [place]) 31 gauge x 5/16 needle Start: 12-22-2017 End: 12-23-2017 Pen Needle, Diabetic (Comfort Ez Pen [place]) 31 gauge x 5/16 needle Start: 12-23-2017 End: 12-23-2017 Blood Sugar Diagnostic (Freestyle Lite Strips) strip Start: 12-23-2017 End: 12-23-2017 Pen Needle, Diabetic (Comfort Ez Pen [place]) 31 gauge x 5/16 needle Start: 12-22-2017 End: 12-23-2017 Pen Needle, Diabetic (Comfort Ez Pen [place]) 31 gauge x 5/16 needle Start: 12-23-2017 End: 12-23-2017 Blood Sugar Diagnostic (Freestyle Lite Strips) strip Start: 12-23-2017 End: 12-23-2017 Pen Needle, Diabetic (Comfort Ez Pen [place]) 31 gauge x 5/16 needle Start: 12-22-2017 End: 12-23-2017 Pen Needle, Diabetic (Comfort Ez Pen [place]) 31 gauge x 5/16 needle Start: 12-23-2017 End: 12-23-2017 Blood Sugar Diagnostic (Freestyle Lite Strips) strip Start: 12-23-2017 End: 12-23-2017 Pen Needle, Diabetic (Comfort Ez Pen [place]) 31 gauge x 5/16 needle Start: 12-22-2017 End: 12-23-2017 Pen Needle, Diabetic (Comfort Ez Pen [place]) 31 gauge x 5/16 needle Start: 12-23-2017 End: 12-23-2017 Blood Sugar Diagnostic (Freestyle Lite Strips) strip Start: 12-23-2017 End: 12-23-2017 Pen Needle, Diabetic (Comfort Ez Pen [place]) 31 gauge x 5/16 needle Start: 12-22-2017 End: 12-23-2017 Pen Needle, Diabetic (Comfort Ez Pen [place]) 31 gauge x 5/16 needle Start: 12-23-2017 End: 12-23-2017 Blood Sugar Diagnostic (Freestyle Lite Strips) strip Start: 12-23-2017 End: 12-23-2017 Pen Needle, Diabetic (Comfort Ez Pen [place]) 31 gauge x 5/16 needle Start: 12-22-2017 End: 12-23-2017 Pen Needle, Diabetic (Comfort Ez Pen [place]) 31 gauge x 5/16 needle Start: 12-23-2017 End: 12-23-2017 Blood Sugar Diagnostic (Freestyle Lite Strips) strip Start: 12-23-2017 End: 12-23-2017 Pen Needle, Diabetic (Comfort Ez Pen [place]) 31 gauge x 5/16 needle Start: 12-22-2017 End: 12-23-2017 Pen Needle, Diabetic (Comfort Ez Pen [place]) 31 gauge x 5/16 needle Start: 12-23-2017 End: 12-23-2017 Blood Sugar Diagnostic (Freestyle Lite Strips) strip Start: 12-23-2017 End: 12-23-2017 Pen Needle, Diabetic (Comfort Ez Pen [place]) 31 gauge x 5/16 needle Start: 12-22-2017 End: 12-23-2017 Pen Needle, Diabetic (Comfort Ez Pen [place]) 31 gauge x 5/16 needle Start: 12-23-2017 End: 12-23-2017 Blood Sugar Diagnostic (Freestyle Lite Strips) strip Start: 12-23-2017 End: 12-23-2017 Pen Needle, Diabetic (Comfort Ez Pen [place]) 31 gauge x 5/16 needle Start: 12-22-2017 End: 12-23-2017 Pen Needle, Diabetic (Comfort Ez Pen [place]) 31 gauge x 5/16 needle Start: 12-23-2017 End: 12-23-2017 Insulin Syringe-Needle U-100 [Insulin Syringe-Needle U-100 0.5 Ml 31 Gauge X 5/16] (Insulin Syringe-Needle U-100 0.5 Ml 31 Gauge X ) 0.5 mL 31 gauge x 5/16 syringe Start: 10-19-2024 Blood Sugar Diagnostic (Freestyle Lite Strips) strip Start: 12-23-2017 End: 12-23-2017 Pen Needle, Diabetic (Comfort Ez Pen [place]) 31 gauge x 5/16 needle Start: 12-22-2017 End: 12-23-2017 Pen Needle, Diabetic (Comfort Ez Pen [place]) 31 gauge x 5/16 needle Start: 12-23-2017 End: 12-23-2017 Insulin Syringe-Needle U-100 [Insulin Syringe-Needle U-100 0.5 Ml 31 Gauge X 5/16] (Insulin Syringe-Needle U-100 0.5 Ml 31 Gauge X ) 0.5 mL 31 gauge x 5/16 syringe Start: 10-19-2024 Blood Sugar Diagnostic (Freestyle Lite Strips) strip Start: 12-23-2017 End: 12-23-2017 Pen Needle, Diabetic (Comfort Ez Pen [place]) 31 gauge x 5/16 needle Start: 12-22-2017 End: 12-23-2017 Pen Needle, Diabetic (Comfort Ez Pen [place]) 31 gauge x 5/16 needle Start: 12-23-2017 End: 12-23-2017 Insulin Syringe-Needle U-100 (Trueplus Insulin) 0.5 mL 31 gauge x 5/16 syringe Start: 10-19-2024 Blood Sugar Diagnostic (Freestyle Lite Strips) strip Start: 12-23-2017 End: 12-23-2017 Pen Needle, Diabetic (Comfort Ez Pen [place]) 31 gauge x 5/16 needle Start: 12-22-2017 End: 12-23-2017 Pen Needle, Diabetic (Comfort Ez Pen [place]) 31 gauge x 5/16 needle Start: 12-23-2017 End: 12-23-2017 Insulin Syringe-Needle U-100 (Trueplus Insulin) 0.5 mL 31 gauge x 5/16 syringe Start: 10-19-2024 Blood Sugar Diagnostic (Freestyle Lite Strips) strip Start: 12-23-2017 End: 12-23-2017 Pen Needle, Diabetic (Comfort Ez Pen [place]) 31 gauge x 5/16 needle Start: 12-22-2017 End: 12-23-2017 Pen Needle, Diabetic (Comfort Ez Pen [place]) 31 gauge x 5/16 needle Start: 12-23-2017 End: 12-23-2017 Insulin Syringe-Needle U-100 (Trueplus Insulin) 0.5 mL 31 gauge x 5/16 syringe Start: 10-19-2024 Blood Sugar Diagnostic (Freestyle Lite Strips) strip Start: 12-23-2017 End: 12-23-2017 Pen Needle, Diabetic (Comfort Ez Pen [place]) 31 gauge x 5/16 needle Start: 12-22-2017 End: 12-23-2017 Pen Needle, Diabetic (Comfort Ez Pen [place]) 31 gauge x 5/16 needle Start: 12-23-2017 End: 12-23-2017 Insulin Syringe-Needle U-100 (Trueplus Insulin) 0.5 mL 31 gauge x 5/16 syringe Start: 10-19-2024 Blood Sugar Diagnostic (Freestyle Lite Strips) strip Start: 12-23-2017 End: 12-23-2017 Pen Needle, Diabetic (Comfort Ez Pen [place]) 31 gauge x 5/16 needle Start: 12-22-2017 End: 12-23-2017 Pen Needle, Diabetic (Comfort Ez Pen [place]) 31 gauge x 5/16 needle Start: 12-23-2017 End: 12-23-2017 Insulin Syringe-Needle U-100 (Trueplus Insulin) 0.5 mL 31 gauge x 5/16 syringe Start: 10-19-2024 Blood Sugar Diagnostic (Freestyle Lite Strips) strip Start: 12-23-2017 End: 12-23-2017 Pen Needle, Diabetic (Comfort Ez Pen [place]) 31 gauge x 5/16 needle Start: 12-22-2017 End: 12-23-2017 Pen Needle, Diabetic (Comfort Ez Pen [place]) 31 gauge x 5/16 needle Start: 12-23-2017 End: 12-23-2017 Insulin Syringe-Needle U-100 (Trueplus Insulin) 0.5 mL 31 gauge x 5/16 syringe Start: 10-19-2024 Blood Sugar Diagnostic (Freestyle Lite Strips) strip Start: 12-23-2017 End: 12-23-2017 Pen Needle, Diabetic (Comfort Ez Pen [place]) 31 gauge x 5/16 needle Start: 12-22-2017 End: 12-23-2017 Pen Needle, Diabetic (Comfort Ez Pen [place]) 31 gauge x 5/16 needle Start: 12-23-2017 End: 12-23-2017 Goals Date Patient Goal Desired Activity /State Functional Status Date Assessment Result Facility 02-28-2025 Functional status Chair [facility] Work Phone: 02-05-2025 Functional status Ambulates;Chair [facility] Work Phone: 08-20-2022 Functional status Up ad abhishek;Bathroom Priv ilege [facility] Work Phone: 03-03-2022 Functional status Ambulates [facility] Work Phone: Mental Status Date Assessment Result Facility 02-28-2025 Cognitive function Voice/Name [facility] Work Phone: 02-27-2025 Cognitive function Voice/Name [facility] Work Phone: 02-05-2025 Cognitive function Level Of Cons ciousness Awake;Alert;Appropriate;Follow s Commands [facility] Work Phone: 01-26-2025 Cognitive function Voice/Name [facility] Work Phone: 10-19-2024 Cognitive function Voice/Name [facility] Work Phone: 01-03-2023 Cognitive function Voice/Name [facility] Work Phone: 12-09-2022 Cognitive function Level Of Cons ciousness Awake;Alert;Appropriate;Follow s Commands [facility] Work Phone: 12-03-2022 Cognitive function Voice/Name [facility] Work Phone: 11-17-2022 Cognitive function Voice/Name [facility] Work Phone: 10-13-2022 Cognitive function Level Of Cons ciousness Awake;Alert;Appropriate;Follow s Commands [facility] Work Phone: 08-20-2022 Cognitive function Voice/Name [facility] Work Phone: 07-07-2022 Cognitive function Level Of Cons ciousness Awake;Alert;Appropriate;Follow s Commands [facility] Work Phone: 06-30-2022 Cognitive function Voice/Name [facility] Work Phone: 03-03-2022 Cognitive function Voice/Name [facility] Work Phone: 2022 Cognitive function Level Of Cons ciousness Awake;Drowsy;Inappropriate [facility] Work Phone: Clinical Notes 05-29-2010 to 03-04-2025 Note Date & Type Note Facility 03-04-2025 Hospital Discharg e instructions Patient Education 03/04/2025 15:31:58 Palpitations Heart Palpitations Palpitations are the feeling that your heart is beating hard, fast, or irregular. Some describe it as pounding or skipped beats. Palpitations may occur in someone with heart disease, but can also occur in a healthy person. Heart-related causes: Arrhythmia (a change from the heart's normal rhythm) Heart valve disease Disease of the heart muscle Coronary artery disease High blood pressure Zux-obvlk-rgqkntn causes: Certain medicines such as asthma inhalers and decongestants Some herbal supplements, energy drinks and pills, and weight loss pills Illegal stimulant drugs such as cocaine, crank, methamphetamine, PCP, bath salts, or ecstasy Caffeine, alcohol, and tobacco Medical conditions such as thyroid disease, anemia, anxiety, and panic disorder Sometimes the cause can't be found. Home care Follow these home care tips: Don't use too much caffeine, alcohol, tobacco, or any stimulant drugs. Tell your doctor about any prescription or hcnv-ged-orcawyp or herbal medicines you take. Follow-up care Follow up with your doctor, or as advised. Call 911 This is the fastest and safest way to get to the emergency department. The paramedics can also begin treatment on the way to the hospital, if needed. Don't wait until your symptoms are severe to call 911. These are reasons to call 911: Chest pain Shortness of breath Feeling lightheaded, faint, or dizzy Fainting or loss of consciousness Very irregular heartbeat Rapid heartbeat that makes you uncomfortable Slower than usual heart rate associated with symptoms Slower than usual heart rate Chest pain with weakness, dizziness, heavy sweating, nausea, or vomiting Extreme drowsiness or confusion Weakness of an arm or leg, or on 1 side of the face Difficulty with speech or vision When to seek medical advice Call your healthcare provider right away if you have palpitations and any of the following: Weakness Dizziness Lightheadedness Fainting [phone] [employer]. [address] [place] [address]. All rights reserved. This information is not intended as a substitute for professional medical care. Always follow your healthcare professional's instructions. Follow Up Care 03/04/2025 14:00:19 With:ROBBI SALAZAR MD Address: [address] [facility] [address] [place] [address]- When:2-4 days With:LAURENT JENKINS APRN-HISTORICAL SOCIETY DIRECTOR Address: [address] [place] [address] [address] [place] [address]- [phone] When:2-4 days With:KANIKA KILLIAN MD Address: [address] [facility] [address] [place] [address]- [phone] When:2-4 days [facility] 03-04-2025 Note Discharge Instructions Thank you for allowing [facility] to assist you with your healthcare needs. The following is important discharge information regarding your hospital visit. Diagnosis from Today's Visit Palpitations What to Do Next Instructions from Your Care Team No qualifying data available. Post Acute Orders No qualifying data available. You Need to Schedule the Following Appointments Follow Up with ROBBI SALAZAR MD When:Within 2-4 days Where:[address] [place] [address]- Follow Up with LAURENT JENKINS When:Within 2-4 days Where:[address] [facility] [address] [place] [address]- [phone] Follow Up with KANIKA KILLIAN MD When:Within 2-4 days Where:[address] [facility] [address] [place] [address]- [phone] Allergies No Known Medication Allergies Medications Please ask your primary doctor or pharmacist before taking any other medication not listed, including over the counter drugs, herbal medications, vitamins and or supplements as they may interact with your home medications. Please take this list to your next doctor s visit. Bring all medications you take, including over the counter medications, herbals and other supplements with you to your doctor s visit. Patients and families are reminded to discard old lists and to update any records with all medication providers or retail pharmacies. Education Materials Heart Palpitations Palpitations are the feeling that your heart is beating hard, fast, or irregular. Some describe it as pounding or skipped beats. Palpitations may occur in someone with heart disease, but can also occur in a healthy person. Heart-related causes: Arrhythmia (a change from the heart's normal rhythm) Heart valve disease Disease of the heart muscle Coronary artery disease High blood pressure Pmb-rwskt-dmpqjup causes: Certain medicines such as asthma inhalers and decongestants Some herbal supplements, energy drinks and pills, and weight loss pills Illegal stimulant drugs such as cocaine, crank, methamphetamine, PCP, bath salts, or ecstasy Caffeine, alcohol, and tobacco Medical conditions such as thyroid disease, anemia, anxiety, and panic disorder Sometimes the cause can't be found. Home care Follow these home care tips: Don't use too much caffeine, alcohol, tobacco, or any stimulant drugs. Tell your doctor about any prescription or tzfm-cue-oftttmi or herbal medicines you take. Follow-up care Follow up with your doctor, or as advised. Call 911 This is the fastest and safest way to get to the emergency department. The paramedics can also begin treatment on the way to the hospital, if needed. Don't wait until your symptoms are severe to call 911. These are reasons to call 911: Chest pain Shortness of breath Feeling lightheaded, faint, or dizzy Fainting or loss of consciousness Very irregular heartbeat Rapid heartbeat that makes you uncomfortable Slower than usual heart rate associated with symptoms Slower than usual heart rate Chest pain with weakness, dizziness, heavy sweating, nausea, or vomiting Extreme drowsiness or confusion Weakness of an arm or leg, or on 1 side of the face Difficulty with speech or vision When to seek medical advice Call your healthcare provider right away if you have palpitations and any of the following: Weakness Dizziness Lightheadedness Fainting [id number] [employer]. [address] [place] [address]. All rights reserved. This information is not intended as a substitute for professional medical care. Always follow your healthcare professional's instructions. Additional Information VACCINATE! IT SAVES LIVES! Members of the community who have not yet received the COVID-19 vaccine and would like to receive it can visit one of [facility] vaccine clinics. There are many vaccine clinic locations within the [facility]. For locations and available times, please visit [email or web address] [email or web address] It is important to note that some COVID mobile vaccine clinics are held outdoors and may be canceled in rainy or stormy conditions. To learn more about pediatric vaccinations (ages 5-11), we invite you to visit the [facility] webpage. https://www.[email or web address].[email or web address]/p ages/3325-Qwctl-Iwmaiyrkoor-Freq zrutiy-Pznqm-Ecltxigxr.html To learn more about the COVID-19 vaccine, we invite you to visit the CDC website for a list of frequently asked questions. https://www.cdc.gov/coronavirus/ 2019-ncov/vaccines/faq.html [facility] Audio Patient Portal Access Instructions: Stay connected with your healthcare team and access your personal medical information anytime with the [facility] [facility] Audio Patient Portal. If you would like a full copy of your medical records please contact the [facility] Medical Records Department Wednesday through Wednesday between 8a.m. and 4:30p.m. Please follow the directions below to access the portal: 1.Access the email account you provided upon registration to the hospital.2.Look for an invitation email from [facility].3.Open the email and access the invitation link: Accept Invitation to [facility]4.Fill in the required serna to create your account. Sign into [email or web address] with your username and password that you created in the above steps to stay up to date. You can then view a summary of results, a summary of your visits, and the ability to download your summaries to your computer or send the information securely to a physician. Remember that your healthcare information is confidential, so carefully consider who you will allow to register on the [facility] Patient Portal for access to your information. You can also access the [facility] Patient Portal on the [employer]. Simply click on Health Records under Health Data and then click on the [employer] logo. HOW TO SAFELY DISPOSE OF PRESCRIPTION MEDICATIONS Please use one of the following methods to safely dispose of your unused medications. 1.Use a drug disposal kit: the drug disposal pouch allows you to safely discard your old and unused drugs. Ask your nurse to give you one when you are discharged.2.Visit a local take-back location: Many local pharmacies and police departments have programs that collect old and unwanted prescription drugs. Call your local pharmacy or go to http://DoubleBeam.Pegg'd/8T1Zb5s to find one close to you.3.Make use of household items: Use cat litter or old coffee grounds to dispose medications if other options are not available. Mix your drugs with these household products, seal them in an airtight container and throw it into the garbage. Call [facility]: [phone] to be sure your drugs can be disposed of in this way. Some medicines may require a different approach.4.Never flush your medications down the toilet. IF YOU HAVE BEEN PRESCRIBED AN OPIOIDS FOR PAIN If you have been prescribed an opioid (such as hydrocodone, oxycodone or morphine), it is critical to understand the possible side effects and risks of opioid pain medications. Even when taken as directed, opioids can have several side effects including: Tolerance, meaning you might need to take more of a medication for the same pain relief. Nausea, vomiting and/or constipation. Sleepiness, dizziness, dry mouth, confusion, depression or itching. Physical dependence, meaning you have withdrawal symptoms when a medication is stopped ? this can develop within a few days. KNOW YOUR RESPONSIBILITIES It is important to know exactly how much and how often to take the opioid pain medications you are prescribed. Never take opioids in higher amounts or more often than prescribed. Do not combine opioids with alcohol or other drugs that cause drowsiness, such as benzodiazepines, also known as benzos, including diazepam and alprazolam, muscle relaxants or sleep aids. Never sell or share prescription opioids. This is illegal. Store opioids in a secure place and out of reach of others (including children, family, friends and visitors). The last page(s) of this document has been signed and retained as a CHART COPY Signatures Patient Education Materials Palpitations Medication Leaflets My discharge plan and instructions have been reviewed and explained to me and I,UNA COSBY understand my current condition and have read and understand these discharge instructions. I have received a written copy of the plan/instructions. If I have questions, I am aware that I should contact my doctor. Patient/Rn Care Manager Signature: Date/Time: Relationship to Patient: Witness Name/Signature: Date/Time: [facility] 03-04-2025 Note Exam Date Time Procedure Performing Provider Status 03/04/25 2:10 PM EKG [ED AOH] - CV LIZ ROSE DO; (Verified) ECG Final Report Sinus tachycardia Probable left atrial enlargement ST elev, probable normal early repol pattern Electronic Signature: LIZ ROSE DO 03/04/2025 14:20:27 [facility]07-23-2025 [facility] Medical Records Department [address] [place] [address] Discharge Summary 02/28/25 1051 MR#: [id number] Acct: [id number] Name: UNA COSBY Rep #: [id number] : 1995 29 From: Berny Nelson MD PCP: Care Physician,No Primary Status:DIS IN Location: ICU [id number] Providers Date of Admission: 02/27/25 Primary Care Physician: No Primary Care Phys Reason For Visit: DKA Diagnosis Discharge Diagnosis (1) Diabetic ketoacidosis associated with type 1 diabetes mellitus: Status: Acute Code(s): E10.10 - Type 1 diabetes mellitus with ketoacidosis without coma (2) Acute dehydration: Status: Acute Code(s): E86.0 - Dehydration Medications at Discharge Home Medications insulin lispro 100 unit/mL subcutaneous pen See Rx Instructions SQ TIDCM short acting insulin 03/05/21 insulin glargine 100 unit/mL (3 mL) subcutaneous pen (Lantus Solostar U-100 Insulin) 30 unit subcut QPM diabetes 08/18/22 insulin syringe-needle U-100 0.5 mL 31 gauge x /16 (TRUEplus Insulin) 10/19/24 ondansetron 8 mg disintegrating tablet 8 mg PO Q8H PRN nausea and vomiting #12 tabs 12/14/24 Hospital Course Operations None Procedures None Summary of Care Provided Minutes Spent on Discharge: 32 Hospital Course: Per HPI: UNA COSBY, is [id number] male history of type 1 diabetes and tobacco use presented to [facility] ED 02/27/2025 with complaints of heart palpitations. In the ED temp 97.4, heart rate 115 with a blood pressure 138/89, respiratory rate 22 pulse ox 100% on room [...] at bedtime. Per patient he reports compliance Hospital Course: 1. DKA in the setting of type 1 diabetes with FRANKLIN???29-year-old male states he is compliant with his insulin but occasionally gets DKA and he thinks this time it was due to being tachycardic. His gap closed fairly quickly last evening and he was placed on his long-acting subcu insulin as well as a diet. FRANKLIN resolved, and he had an FRANKLIN simply because his creatinine was about double what it normally is despite still being in the normal range. Creatinine on the day of discharge was 0.44, on admission it was 1.02. He requested to be discharged today after breakfast as he does not want to be here any longer and says that he feels fine. He was continued on his home insulin medications and he says that he knows what he is doing. It does not appear that he has a primary care doctor. I discussed with him the possibility for discharge and he expressed understanding of the risks and benefits of going home and wants to go home today. Physical Exam Narrative General: Alert, Oriented x3, Cooperative, No apparent distress HEENT: Atraumatic, PERRLA, EOMI, Normocephalic Oral: Moist Mucosa Neck: Supple, No JVD Lungs: Clear to auscultation, Normal air movement, No rhonchi, No wheeze, No rales Cardiovascular: Regular rate, Regular Rhythm, Normal S1, Normal S2, No murmurs Abdomen: Soft, Non Tender, Non-Distended, No Hepato-splenomegaly Extremities: No edema, Capillary Refill Less than 3 Seconds Skin: No rashes, No breakdown Musculoskeletal: No Tenderness to Palpation of Joints or Extremities Neurological: No focal neurological deficits, Motor Exam 5/5 strength throughout, Sensory exam intact to light touch and pain Psych/Mental Status: Normal Affect, Appropriate Weight / BMI Weight Weight: 129 lb 10.109 oz Body Mass Index (BMI) 16.6 ABG / Lab / Microbiology Data 02/28/25 04:25 02/28/25 04:25 Laboratory: Laboratory Results - last 24 hr 02/27/25 13:26: WBC 8.8, RBC 4.94, Hgb 12.0 L, Hct 40.1, MCV 81.2, MCH 24.3 L, MCHC 29.9 L, RDW Std Deviation 51.4 H, RDW Coeff of Alec 17.4 H, Plt Count 268, MPV 11.1, Immature Gran % (Auto) 0.500, Neut % (Auto) 59.1, Lymph % (Auto) 28.6, [place] % (Auto) 7.6, Eos % (Auto) 3.4, Baso % (Auto) 0.8, Absolute Neuts (auto) 5.2, Absolute Lymphs (auto) 2.53, Nucleated RBC % 0, Sodium 129 L, Potassium 5.3 H, Chloride 91 L, Carbon Dioxide 15.6 L, Anion Gap 22 H, BUN 11, Crea (more content not included)...[facility]07-23-2025 Progress note [facility] Medical Records Department [address] [place] [address] Progress Note - Hospitalist 02/27/252146 MR#: [id number] Acct: [id number] Name: UNA COSBY Rep #:[id number] : 1995 From: Sarah Oh MD PCP: Care Physician,No Primary Status :ADM IN Location: ICU CVICU20 3-1 Hospitalist Note AG closed x 2, bicarb 25. Will transition off insulin drip to home insulin regimen. Will transitionto ADA diet. If no issues with transition will plan to change level of care to MS status. 02/27/252146 Cosigner Signature (if applicable): CC: ~ Signed [facility]07-23-2025 Discharge summary [facility] Medical Records Department [address] [facility] [address] [place] [address] Instructions for Home/Discharge Instructions 02/28/25 0853 MR#: [id number] Acct: [id number] Name: UNA COSBY Rep #:[id number] : 1995 29 From: Berny yeager MD PCP: Josep Physician,Cecy Primary Status :ADM IN Discharge Instructions DC O2, CPAP, BIPAP needs Home O2 Discharge instructions: No Dressing / Incision Discharge Activity: Return to Normal Activity Dressing / Incision Call your doctor if you observe: Fever of 101 or Higher, Shortness of breath, Dizziness, Fainting spells, Swelling in the ankles, Chest pain and Increased palpitations (irregular heartbeat) Follow Up Care Test Results: Test results from this visit will be discussed in further detail at your follow- up appointment, if applicable. Discharge Plan Admission Admit Date/Time: 02/27/25 14:52 Attending Provider: Berny Nelson Primary Care Provider: Josep Physician,No Primary Consulting Providers: Marcelina Erickson Patient Instructions: Ketoacidosis Ch Discharge Orders/Prescriptions Prescriptions: Continued insulin lispro 100 UNIT/ML insulin pen See Rx Instructions SQ TIDCM Rx Instructions: SLIDING SCALE SQ 3 times daily with meals; +SLIDING SCALE insulin glargine [Lantus Solostar U-100 Insulin] 100 unit/mL (3 mL) insulin pen 30 unit subcut QPM ondansetron 8 mg tablet,disintegrating 8 mg PO Q8H PRN (Reason: nausea and vomiting) Qty: 12 0RF Discontinued insulin glargine [Lantus U-100 Insulin] 100 unit/mL solution 35 unit subcut QHS insulin lispro 100 unit/mL solution 25 unit subcut TIDCM Patient Comments: inject 25 three times a day No Action (DME) insulin syringe-needle U-100 [TRUEplus Insulin] 0.5 mL 31 gauge x 5/16 syringe 1 syringe MISCELLANEOUS 4X/DAY Referrals / Follow Up: Care Physician,No Primary [Primary Care Provider] - Disposition Disposition (needs filled in before D/C Order can be placed): Home, Self Care 02/28/25 0856Berny Nelson MD CC: Dr. Marcelina Erickson MD; No Primary Care Physician ~ Signed [facility]07-23-2025 Discharge summary [facility] Medical Records Department [address] [place] [address] Emergency Department Summary 02/27/25 MR#: [id number] Acct: [id number] Name: UNA COSBY Rep #:[id number] : 1995 29 From: Arik Boswell MD PCP: Care Physician,No Primary Status :ADM IN Location: ICU CVICU20 3-1 HPI History of Present Illness Chief Complaint: Palpitations Detail of Chief Complaint: Supraventricular tachycardia, this is not my first rodeo bud Informant: patient Onset/Context/Timing Onset: Today Context: Sudden Onset Timing: Continuous Quality: Palpitations, fast heart rate, states he needs a new heart valve Location: Cardiovascular Current Severity: Mild Maximum Severity: Moderate Worsened by: Activity and upright position Relieved by: Nothing Associated Symptoms Associated Symptoms: Nausea, thirst, increased urination Narrative Narrative: Patient is a 29-year-old male. He is not a good informant. He presents becauseof palpitation. He states he has been here before and this is not my first rodeo bud. Patient has not checked his bloodsugar presently. 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 He has been admitted numerous times this year for DKA. Question of ketotic odor to his breath. He is tachycardic and tachypneic. Monitor reveals a sinus tachycardia. He denies headache, double vision, ringing his ears decreased hearing. Does have blurred vision, bilaterally. He denies chest discomfort, pressure, tightness or heaviness. He does endorse some mild shortness of breath. He does complain of some vague abdominal discomfort with nausea without vomitingor diarrhea. He denies dysuria or hematuria. He does endorse nocturia and urgency/frequency. Prior similar symptoms: Yes (Per review of old records when patient presents with similar symptoms he horta) Recent Illness/Hospitalization: No PFSH PFSH Medical History Noncompliance with medication regimen Anxiety [...] ED Constitutional Constitutional ED: Denies chills, fever(s), subjective, sweats or weight loss Eyes Eyes: Reports blurry vision bilateral; Denies change in vision or diplopia ENT ENT ED: Denies ear pain, rhinorrhea or sore throat Cardiovascular Cardiovascular: Reports palpitations and racing heartbeat; Denies chest pain, orthopnea or paroxysmal nocturnal dyspnea Respiratory/Chest Respiratory/Chest: Reports dyspnea; Denies cough, dyspnea on exertion, orthopneaor paroxysmal nocturnal dyspnea Gastrointestinal Gastrointestinal: Reports abdominal pain and nausea; Denies constipation, diarrhea, melena or vomiting Genitourinary Genitourinary ED: Denies dysuria, hematuria or urinary frequency Musculoskeletal Musculoskeletal: Reports arthralgias and myalgias Integumentary Reports rash Neurologic Neurologic: Reports weakness; Denies headache(s) or paresthesias Endocrine Endocrinology: Reports polydipsia and polyuria Hematologic/Lymphatic Hematologic/Lymphatic: Reports systems reviewed and no addt'l complaints, exceptas documented EXAM Physical Exam Const Vital Signs: 02/27/25 12:26 02/27/25 13:29 02/27/25 [...] obtaining)] 86 Pulse Ox Oxygen Delivery Method Positive well developed, cachectic and unkempt Constitutional Narrative: Patient appears ill but not toxic. General Appearance ED: unkempt, well developed, cachectic and pallor; Negative for cyanotic or diaphoretic Nutritional Appearance: cachectic HEENT Reports dry mucous membranes HEENT Narrative: Head is a head is atraumatic and normocephalic. Ears normal. TMs normal. Nares patent. Posterior pharynx is normal. Mouth ED: Yes dry mucous membranes Mouth: dry mucous membranes Eyes PERRL and EOMs intact bilaterally General Eye ED: Negative for pale conjunctiva or scleral icterus Neck no lymphadenopathy, supple and no JVD Chest Wall inspection of chest normal and palpation of chest normal Resp normal respiratory effort and clear to auscultation bilaterally Cardio regular rhythm, S1 normal heart sound, S2 normal heart sound and no murmurs Rate: tachycardic GI normal to inspection, nondistended, normoactive bowel sounds, non-tender, non- distended and no masses; Negative for hepatosplenomegaly Back/Spine no CVA tenderness Extremity normal to inspection General Extremety ED: Negative for edema General Extremity: Negative for edema Neuro CN's II-XII intact bilaterally Neuro Narrative: Patient is awake but not alert. Sensorium / Orientation: Negative for alert Psych Appearance: unkempt Skin no rashes or lesions noted, no wounds and No skin turgor normal General Skin Exam: pallor; Negative for jaundice MDM MDM MDM Narrative Medical decision making narrative: Initial workup included CBC BMP and placed on monitor. In light of his past history and laboratory results DKA order set was initiated. He did receive IV fluids. He was started on insulin drip. Differential initially was sinus tach due to dehydration, hyperglycemia, DKA, Lab Data Attestation: I reviewed the patient's lab results. Lab results narrative: CBC is essentially unremarkable. Basic metabolic panel is micro sodium 129 which was represents a pseudohyponatremia. Once corrected for the glucose it isupper end of normal. Potassium cellulite at 5.3. CO2 is 15 with an anion gap of 22. BUN and creatinine are normal. Blood sugar was 865. Labs: Laboratory Results - last 24 hr 02/27/25 13:26 WBC 8.8 RBC 4.94 Hgb 12.0 L Hct 40.1 MCV 81.2 MCH 24.3 L MCHC 29.9 L RDW Std Deviation 51.4 H RDW Coeff of Laec 17.4 H Plt Count 268 MPV 11.1 Immature Gran % (Auto) 0.500 Neut % (Auto) 59.1 Lymph % (Auto) 28.6 [place] % (Auto) 7.6 Eos % (Auto) 3.4 Baso % (Auto) 0.8 Absolute Neuts (auto) 5.2 Absolute Lymphs (auto) 2.53 Nucleated RBC % 0 Sodium 129 L Potassium 5.3 H Chloride 91 L Carbon Dioxide 15.6 L Anion Gap 22 H BUN 11 Creatinine 1.02 Estim Creat Clear Calc 94.64 Est GFR (MDRD) Non-Af 103 BUN/Creatinine Ratio 11.0 Glucose 865 H* Calcium 8.4 Rhythm Strip Rhythm Strip: T waves appear prominent. In light of this we will obtain EKG. Rate: 120 EKG Initial EKG: Attestation: I personally reviewed and interpreted this EKG as follows: Interpretation: Sinus Rhythm (Rate is 91. The EKG is interpreted as normal. His T waves are peaked which would raise concern for hyperkalemia. Hispotassium is only 5.3. NM interval is 156 ms. QRS duration 82 ms. QT srgishkp499 ms. [place] is normal.) Critical Care Time Critical Care Time: Yes Critical care time (excluding procedures): 30-74 minutes (31), Including time spent: (History, physical, documentation, interventional titration laboratory results, EKG and treatment for DKA.), Discussing w/Patient &/or Family/Ratoprinter, Discussing w/Consultants and Arranging Admission or Transfer Discharge Plan Triage Chief Complaint: Palpitations ED Provider: Arik Boswell Dx/Rx/DC Orders Clinical Impression: Diabetic ketoacidosis associated with type 1 diabetes mellitus, Acute hyperkalemia, Acute dehydration Prescriptions: No Action insulin lispro 100 UNIT/ML [...] Primary [Primary Care Provider] - Print Language: Anguill[place] Disposition Disposition: Acute Care Hospital [facility] What to do if you have Problems For any increased pain, shortness of breath, bleeding, nausea or vomiting, chestpain, or any unexpected problems, contact your Primary Care Provider. Call [facility] ([phone]) or report tothe closest Emergency Room. Call 911 if necessary. 02/28/25 8710 Cosigner Signature (if applicable): CC: No Primary Care Physician ~ Signed [facility]07-22-2025 Progress note Author Sarah Oh [facility] Note Date/Time February 28, 2025 9:47 am [facility] Medical Records Department [address] [place] [address] Progress Note - Hospitalist 02/27/252146 MR#: [id number] Acct: [id number] Name: UNA COSBYYD Rep #:[id number] : 1995 From: Sarah Oh MD PCP: Care Physician,No Primary Status :ADM IN Location: ICU CVICU20 3-1 Hospitalist Note AG closed x 2, bicarb 25. Will transition off insulin drip to home insulin regimen. Will transition to ADA diet. If no issues with transition will plan to change level of care to MS status. 02/27/252146 <Electronically signed by Sarah Oh MD> Cosigner Signature (if applicable): CC: ~ Signed [facility] Work Phone: 1(882) 998-289507-22-2025 History and physical note Author Marcelina Erickson [facility] Note Date/Time February 27, 2025 3:01 pm [facility] Medical Records Department [address] [place] [address] H&P Exam - Hospitalist 02/27/25 1452 MR#: [id number] Acct: [id number] Name: UNA COSBY Rep #:[id number] : 1995 29 From: Marcelina Erickson MD PCP: Care Physician,No Primary Status :ADM IN Location: ICU CVICU20 3-1 HPI - General General Date of Admission: 02/27/25 Date of Service: 02/27/25 Chief Complaint: Heart palpitations HPI Narrative UNA COSBY, is [id number] male history of type 1 diabetes and tobacco usepresented to [facility] ED 02/27/2025 with complaints of heart [...] at bedtime. Per patient he reports compliance [facility] Medical History Noncompliance with medication regimen Anxiety [...] Neut % (Auto) 59.1, Lymph % (Auto) 28.6,[place] % (Auto) 7.6, Eos % (Auto) 3.4, [...] Clarity Clear, Urine pH 6.0, Ur Specific [place] 1.010, Urine Protein 15 H, Urine Glucose [...] if patient does not already have an financial supervisor would benefit from establishingcare with 1 # [...] Erickson MD Charges/Coding Visit Charges Inpatient E&M: 37561 Init Hosp L2 02/27/25 1501 <Electronically signed by Marcelina Erickson MD> Cosigner Signature (if applicable): CC: Dr. Marcelina Erickson MD; No Primary Care Physician~ Signed [facility] Work Phone: 1(820) 823-576007-22-2025 History and physical note [facility] Medical Records Department [address] [place] [address] H&P Exam - Hospitalist 02/27/25 1452 MR#: [id number] Acct: [id number] Name: UNA COSBY Rep #:[id number] : 1995 29 From: Marcelina Erickson MD PCP: Care Physician,No Primary Status :ADM IN Location: ICU CVICU20 3-1 HPI - General General Date of Admission: 02/27/25 Date of Service: 02/27/25 Chief Complaint: Heart palpitations HPI Narrative UNA COSBY, is [id number] male history of type 1 diabetes and tobacco usepresented to [facility] ED 02/27/2025 with complaints of heart [...] because he began having heart palpitations earlier todaybut ROS otherwise completely negative. Says he has some chronic pain diffusely but nothing that is new. Said he only ate a salad today and that he did not take his insulin. Endorses using about 25 units of long-acting in the morning with sliding scale, sliding scale throughout the day and 30 of long-acting at bedtime. Per patient he reports compliance [facility] Medical History Noncompliance with medication regimen Anxiety [...] MCH 24.3 L, MCHC 29.9 L, RDW StdDeviation 51.4 H, RDW Coeff of Alec 17.4 H, Plt Count 268, MPV 11.1, Immature Gran % (Auto) 0.500, Neut % (Auto) 59.1, Lymph % (Auto) 28.6,[place] % (Auto) 7.6, Eos % (Auto) 3.4, [...] Clarity Clear, Urine pH 6.0, Ur Specific [place] 1.010, Urine Protein 15 H, Urine Glucose [...] fluids to D5%1/2NS at 150 ml/hr andcontinue insulindrip as per nomogram - Of note patient endorsed compliance with his regimen however seems slightly unclear as to what hewas supposed to be taking and it seems not to match what is documented in the EMR, additionally hadan A1c 1 month ago of 15.5, if patient does not already have an financial supervisor would benefit from establishingcare with 1 # FRANKLIN - Patient's creatinine 1.02 however baseline is about 0.65 - Aggressive IV fluids as above # Hyperkalemia - With potassium of 5.3, did have peaked T waves however patient now receiving aggressive IV fluidsand insulin, suspect that this will decrease with these interventions - Trending BMPs every 4 #Tobacco use -Primarily chew tobacco -Advise cessation - Patient agreeable for nicotine patch #DVT ppx: SCDs Marcelina Erickson MD Charges/Coding Visit Charges Inpatient E&M: 35493 Init Hosp L2 02/27/25 1501 Cosigner Signature (if applicable): CC: Dr. Marcelina Erickson MD; No Primary Care Physician~ Signed [facility]07-22-2025 Discharge summary Author Arik Boswell [facility] Note Date/Time February 28, 2025 8:19 am [facility] Medical Records Department [address] [place] [address] Emergency Department Summary 02/27/25 MR#: [id number] Acct: [id number] Name: UNA COSBY Rep #:[id number] : 1995 29 From: Arik Boswell MD PCP: Care Physician,No Primary Status :ADM IN Location: ICU CVICU20 3-1 HPI History of Present Illness Chief Complaint: Palpitations Detail of Chief Complaint: Supraventricular tachycardia, this is not my first rodeo bud Informant: patient Onset/Context/Timing Onset: Today Context: Sudden Onset Timing: Continuous Quality: Palpitations, fast heart rate, states he needs a new heart valve Location: Cardiovascular Current Severity: Mild Maximum Severity: Moderate Worsened by: Activity and upright position Relieved by: Nothing Associated Symptoms Associated Symptoms: Nausea, thirst, increased urination Narrative Narrative: Patient is a 29-year-old male. He is not a good informant. He presents becauseof palpitation. He states he has been here before and this is not my first rodeo bud. Patient has not checked his blood sugar presently. 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 He has been admitted numerous times this year for DKA. Question of ketotic odor to his breath. He is tachycardic and tachypneic. Monitor reveals a sinus tachycardia. He denies headache, double vision, ringing his ears decreased hearing. Does have blurred vision, bilaterally. He denies chest discomfort, pressure, tightness or heaviness. He does endorse some mild shortness of breath. He does complain of some vague abdominal discomfort with nausea without vomitingor diarrhea. He denies dysuria or hematuria. He does endorse nocturia and urgency/frequency. Prior similar symptoms: Yes (Per review of old records when patient presents with similar symptoms he horta) Recent Illness/Hospitalization: No PFSH PFSH Medical History Noncompliance with medication regimen Anxiety [...] ED Constitutional Constitutional ED: Denies chills, fever(s), subjective, sweats or weight loss Eyes Eyes: Reports blurry vision bilateral; Denies change in vision or diplopia ENT ENT ED: Denies ear pain, rhinorrhea or sore throat Cardiovascular Cardiovascular: Reports palpitations and racing heartbeat; Denies chest pain, orthopnea or paroxysmal nocturnal dyspnea Respiratory/Chest Respiratory/Chest: Reports dyspnea; Denies cough, dyspnea on exertion, orthopneaor paroxysmal nocturnal dyspnea Gastrointestinal Gastrointestinal: Reports abdominal pain and nausea; Denies constipation, diarrhea, melena or vomiting Genitourinary Genitourinary ED: Denies dysuria, hematuria or urinary frequency Musculoskeletal Musculoskeletal: Reports arthralgias and myalgias Integumentary Reports rash Neurologic Neurologic: Reports weakness; Denies headache(s) or paresthesias Endocrine Endocrinology: Reports polydipsia and polyuria Hematologic/Lymphatic Hematologic/Lymphatic: Reports systems reviewed and no addt'l complaints, exceptas documented EXAM Physical Exam Const Vital Signs: 02/27/25 12:26 02/27/25 13:29 02/27/25 [...] obtaining)] 86 Pulse Ox Oxygen Delivery Method Positive well developed, cachectic and unkempt Constitutional Narrative: Patient appears ill but not toxic. General Appearance ED: unkempt, well developed, cachectic and pallor; Negative for cyanotic or diaphoretic Nutritional Appearance: cachectic HEENT Reports dry mucous membranes HEENT Narrative: Head is a head is atraumatic and normocephalic. Ears normal. TMs normal. Nares patent. Posterior pharynx is normal. Mouth ED: Yes dry mucous membranes Mouth: dry mucous membranes Eyes PERRL and EOMs intact bilaterally General Eye ED: Negative for pale conjunctiva or scleral icterus Neck no lymphadenopathy, supple and no JVD Chest Wall inspection of chest normal and palpation of chest normal Resp normal respiratory effort and clear to auscultation bilaterally Cardio regular rhythm, S1 normal heart sound, S2 normal heart sound and no murmurs Rate: tachycardic GI normal to inspection, nondistended, normoactive bowel sounds, non-tender, non-distended and no masses; Negative for hepatosplenomegaly Back/Spine no CVA tenderness Extremity normal to inspection General Extremety ED: Negative for edema General Extremity: Negative for edema Neuro CN's II-XII intact bilaterally Neuro Narrative: Patient is awake but not alert. Sensorium / Orientation: Negative for alert Psych Appearance: unkempt Skin no rashes or lesions noted, no wounds and No skin turgor normal General Skin Exam: pallor; Negative for jaundice MDM MDM MDM Narrative Medical decision making narrative: Initial workup included CBC BMP and placed on monitor. In light of his past history and laboratory results DKA order set was initiated. He did receive IV fluids. He was started on insulin drip. Differential initially was sinus tach due to dehydration, hyperglycemia, DKA, Lab Data Attestation: I reviewed the patient's lab results. Lab results narrative: CBC is essentially unremarkable. Basic metabolic panel is micro sodium 129 which was represents a pseudohyponatremia. Once corrected for the glucose it isupper end of normal. Potassium cellulite at 5.3. CO2 is 15 with an anion gap of 22. BUN and creatinine are normal. Blood sugar was 865. Labs: Laboratory Results - last 24 hr 02/27/25 13:26 WBC 8.8 RBC 4.94 Hgb 12.0 L Hct 40.1 MCV 81.2 MCH 24.3 L MCHC 29.9 L RDW Std Deviation 51.4 H RDW Coeff of Alec 17.4 H Plt Count 268 MPV 11.1 Immature Gran % (Auto) 0.500 Neut % (Auto) 59.1 Lymph % (Auto) 28.6 [place] % (Auto) 7.6 Eos % (Auto) 3.4 Baso % (Auto) 0.8 Absolute Neuts (auto) 5.2 Absolute Lymphs (auto) 2.53 Nucleated RBC % 0 Sodium 129 L Potassium 5.3 H Chloride 91 L Carbon Dioxide 15.6 L Anion Gap 22 H BUN 11 Creatinine 1.02 Estim Creat Clear Calc 94.64 Est GFR (MDRD) Non-Af 103 BUN/Creatinine Ratio 11.0 Glucose 865 H* Calcium 8.4 Rhythm Strip Rhythm Strip: T waves appear prominent. In light of this we will obtain EKG. Rate: 120 EKG Initial EKG: Attestation: I personally reviewed and interpreted this EKG as follows: Interpretation: Sinus Rhythm (Rate is 91. The EKG is interpreted as normal. His T waves are peaked which would raise concern for hyperkalemia. Hispotassium is only 5.3. NM interval is 156 ms. QRS duration 82 ms. QT dzbvwibd430 ms. [place] is normal.) Critical Care Time Critical Care Time: Yes Critical care time (excluding procedures): 30-74 minutes (31), Including time spent: (History, physical, documentation, interventional titration laboratory results, EKG and treatment for DKA.), Discussing w/Patient &/or Family/Ratoprinter, Discussing w/Consultants and Arranging Admission or Transfer Discharge Plan Triage Chief Complaint: Palpitations ED Provider: Arik Boswell Dx/Rx/DC Orders Clinical Impression: Diabetic ketoacidosis associated with type 1 diabetes mellitus, Acute hyperkalemia, Acute dehydration Prescriptions: No Action insulin lispro 100 UNIT/ML [...] Primary [Primary Care Provider] - Print Language: Anguillan Disposition Disposition: Acute Care Hospital [facility] What to do if you have Problems For any increased pain, shortness of breath, bleeding, nausea or vomiting, chestpain, or any unexpected problems, contact your Primary Care Provider. Call [facility] ([phone]) or report to the closest Emergency Room. Call 911 if necessary. 02/28/25 0819 <Electronically signed by Arik Boswell MD> Cosigner Signature (if applicable): CC: No Primary Care Physician ~ Signed [facility] Work Phone: 1(244) 962-146406-30-2025 Discharge summary [facility] Medical Records Department [address] [place] [address] Discharge Summary 02/05/25 1642 MR#: [id number] Acct: [id number] Name: UNA COSBY Rep #:[id number] : 1995 29 From: Alo Lombardo PCP: Care Physician,No Primary Status :ADM IN Location: ICU CVICU 2-1 Providers Date of Admission: 02/05/25 Date of Discharge: 02/05/25 Primary Care Physician: No Primary Care Phys Reason For Visit: DKA Diagnosis Discharge Diagnosis (1) DKA (diabetic ketoacidosis): Status: Acute Code(s): E11.10 - Type 2 diabetes mellitus with ketoacidosis without coma Plan The patient was admitted with DKA. Anion gap's x 2 closed. Insulin drip was transitioned to Lovenoxsubcu with overlap. Patient decided to sign AMA. Advised to stay overnight to get IV fluid stabilized glucose but he refused. Heunderstands the implication of signing AMA. Patient left hospital. Medications at Discharge Home Medications insulin lispro 100 unit/mL subcutaneous pen See Rx Instructions SQ TIDCM short acting insulin 03/05/21 insulin glargine 100 unit/mL (3 mL) subcutaneous pen (Lantus Solostar U-100 Insulin) 30 unit subcutQPM diabetes 08/18/22 insulin glargine 100 unit/mL subcutaneous [...] % (Auto) 55.6, Lymph % (Auto) 31.1, [place] % (Auto) 9.0, Eos % (Auto) 3.4, [...] Clarity Clear, Urine pH 6.0, Ur Specific [place] 1.010, Urine Protein 30 H, Urine Glucose (UA) 1000 H, Urine Ketones 150 A*, Urine Occult Blood 25 H, Urine Nitrite Negative, Urine BilirubinNegative, Urine Urobilinogen Normal, Ur Leukocyte Esterase Negative, U rine RBC 0-5 SEEN, Urine WBC 0 SEEN, [...] % (Auto) 52.3, Lymph % (Auto) 34.1, [place] % (Auto) 8.5, Eos % (Auto) 4.2, [...] Medical Advice Charges/Coding Visit Charges Inpatient E&M: 90613 Disch Hosp >30min 02/05/25 1645 Cosigner Signature (if applicable): CC: Dr. Alo Zambrano MD; No Primary Care Physician~ Signed [facility]06-30-2025 [facility] Medical Records Department [address] [place] [address] Discharge Summary 02/05/25 1642 MR#: [id number] Acct: [id number] Name: UNA COSBY Rep #: [id number] : 1995 29 From: Alo Zambrano MD PCP: Care Physician,No Primary Status:ADM IN Location: ICU IRNKE244-3 Providers Date of Admission: 02/05/25 Date of Discharge: 02/05/25 Primary Care Physician: No Primary Care Phys Reason For Visit: DKA Diagnosis Discharge Diagnosis (1) DKA (diabetic ketoacidosis): Status: Acute Code(s): E11.10 - Type 2 diabetes mellitus with ketoacidosis without coma Plan The patient was admitted with DKA. Anion gap's x 2 closed. Insulin drip was transitioned to [facility] subcu with overlap. Patient decided to sign [...] % (Auto) 55.6, Lymph % (Auto) 31.1, [place] % (Auto) 9.0, Eos % (Auto) 3.4, [...] Magnesium 1.9, b- Hydroxybutyric mmol/L 5.5 H, P OC Glucose > 500 H* 02/05/25 03:44: Urine Color Straw, Urine Clarity Clear, Urine pH 6.0, Ur Specific [place] 1.010, U rine Protein 30 H, Urine [...] % (Auto) 52.3, Lymph % (Auto) 34.1, [place] % (Auto) 8.5, Eos % (Auto) 4.2, Baso % (Auto) 0.6, Absolute Neuts (auto) 6.8, Abs (more content not included)...[facility]06-30-2025 Hospital Discharge instructionsAdditional Instructions Date [facility]: [facility] Work Phone: 1(832) 430-602306-30-2025 Progress note Author Alo Juan Manuel [facility] Note Date/Time February 05, 2025 7:49 am [facility] Medical Records Department [address] [place] [address] Progress Note - Hospitalist 02/05/25 0743 MR#: [id number] Acct: [id number] Name: UNA COSBY Rep #:[id number] : 1995 29 From: Alo Lombardo PCP: Care Physician,No Primary Status :ADM IN Location: ICU CVICU20 2-1 Hospitalist Note Patient was admitted [employer] today with DKA. He said he has [...] Glucose has decreased to 181 in Accu-Chek. BMP glucose 248. Continue insulin drip for 02/05/25 0749 <Electronically signed by Alo Zambrano MD> Cosigner Signature (if applicable): CC: ~ Signed [facility] Work Phone: 1(236) 331-233106-30-2025 Discharge summary Author Babita [facility] Note Date/Time February 05, 2025 7:00 am [facility] Medical Records Department [address] [place] [address] Emergency Department Summary 02/05/25 MR#: [id number] Acct: [id number] Name: UNA COSBY Rep #:[id number] : 1995 29 From: Babita Rivera DO [...] He denies fevers or chills or sweats. [facility] Medical History (Updated 02/05/25 @ 03:43 [...] % (Auto) 55.6 Lymph % (Auto) 31.1 [place] % (Auto) 9.0 Eos % (Auto) 3.4 [...] 30-74 minutes, Including time spent:,Discussing w/Patient &/or Family/Ratoprinter, Discussing w/Consultants, ArrangingAdmission or Transfer, Performing Direct [...] Primary [Primary Care Provider] - Print Language: Anguillan Disposition Disposition: Acute Care Hospital [facility] What to do if you have Problems For any increased pain, shortness of breath, bleeding, nausea or vomiting, chestpain, or any unexpected problems, contact your Primary Care Provider. Call [facility] ([phone]) or report to the closest Emergency Room. Call 911 if necessary. 02/05/25 0700 <Electronically signed by Babita Rivera DO> Cosigner Signature (if applicable): CC: No Primary Care Physician ~ Signed [facility] Work Phone: 1(275) 870-374806-30-2025 Progress note [facility] Medical Records Department [address] [place] [address] Progress Note - Hospitalist 02/05/25 0743 MR#: [id number] Acct: [id number] Name: UNA COSBY Rep #:[id number] : 1995 29 From: Alo Lombardo PCP: Care Physician,No Primary Status :ADM IN Location: ICU CVICU20 2-1 Hospitalist Note Patient was admitted [employer] today with DKA. He said he has [...] Glucose has decreased to 181 in Accu-Chek. [facility] glucose 248. Continue insulin drip for 02/05/25 0749 Cosigner Signature (if applicable): CC: ~ Signed [facility]06-30-2025 Discharge summary [facility] Medical Records Department [address] [place] [address] Emergency Department Summary 02/05/25 MR#: [id number] Acct: [id number] Name: UNA COSBY Rep #:[id number] : 1995 29 From: Babita Rivera DO [...] He denies fevers or chills or sweats. [facility] Medical History (Updated 02/05/25 @ 03:[address] Babita Rivera, ) Noncompliance with medication regimen Anxiety and depression [...] % (Auto) 55.6 Lymph % (Auto) 31.1 [place] % (Auto) 9.0 Eos % (Auto) 3.4 [...] 30-74 minutes, Including time spent:,Discussing w/Patient &/or Family/Ratoprinter, Discussing w/Consultants, ArrangingAdmission or Transfer, Performing Direct [...] Primary [Primary Care Provider] - Print Language: Anguillan Disposition Disposition: Acute Care Hospital [facility] What to do if you have Problems For any increased pain, shortness of breath, bleeding, nausea or vomiting, chestpain, or any unexpected problems, contact your Primary Care Provider. Call [facility] ([phone]) or report tothe closest Emergency Room. Call 911 if necessary. 02/05/25 0700 Cosigner Signature (if applicable): CC: No Primary Care Physician ~ Signed [facility]06-30-2025 History and physical note Author Sarah Oh [facility] Note Date/Time February 05, 2025 4:01 am [facility] Medical Records Department [address] [place] [address] H&P Exam - Hospitalist 02/05/25 0343 MR#: [id number] Acct: [id number] Name: UNA COSBY Rep #:[id number] : 1995 29 From: Sarah Oh MD [...] reported, Tobacco use who presents to the [facility] ED on 02/05/2025 with history of [...] 1 and initiated on an insulin drip. [facility] Medical History Noncompliance with medication regimen Anxiety [...] % (Auto) 55.6, Lymph % (Auto) 31.1, [place] % (Auto) 9.0, Eos % (Auto) 3.4, [...] reported, Tobacco use who presents to the [facility] ED on 02/05/2025 with history of [...] prophylaxis: Lovenox. Charges/Coding Visit Charges Inpatient E&M: 94635 Init Hosp L3 02/05/25 0401 <Electronically signed by Sarah Oh MD> Cosigner Signature (if applicable): CC: Dr. Sarah Oh MD; No Primary Care Physician~ Signed [facility] Work Phone: 1(329) 131-556406-30-2025 Evaluation note* Diagnosis Onset Date Resolution Status Admit Date DKA (diabetic ketoacidosis) acute February 05, 2025 3:44am Hyperglycemia acute February 05, 2025 3:44am Vomiting acute February 05 3:44am [facility] Work Phone: 1(838) 807-719306-30-2025 Evaluation note* Diagnosis Onset Date Resolution Status Admit Date DKA (diabetic ketoacidosis) resolved February 05, 2025 3:44am Hyperglycemia resolved February 05, 2025 3:44am Vomiting resolved February 05 3:44am Acute dehydration acute February 272024 2:52pm Diabetic ketoacidosis associated with type 1 diabetes mellitus acute February 27, 2025 2:52pm [facility] Work Phone: 1(440) 122-908006-30-2025 History and physical note [facility] Medical Records Department [address] [place] [address] [place] [address] H&P Exam - Hospitalist 02/05/25 0343 MR#: [id number] Acct: [id number] Name: UNA COSBY Rep #:[id number] : 1995 29 From: Sarah Oh MD [...] reported, Tobacco use who presents to the [facility] ED on 02/05/2025 with history of [...] 1 and initiated on an insulin drip. [facility] Medical History Noncompliance with medication regimen Anxiety [...] % (Auto) 55.6, Lymph % (Auto) 31.1, [place] % (Auto) 9.0, Eos % (Auto) 3.4, [...] reported, Tobacco use who presents to the [facility] ED on 02/05/2025 with history of [...] prophylaxis: Lovenox. Charges/Coding Visit Charges Inpatient E&M: 15658 Init Hosp L3 02/05/25 0401 Cosigner Signature (if applicable): CC: Dr. Sarah Oh MD; No Primary Care Physician~ Signed [facility]06-20-2025 Radiology Diagnostic study note [facility] Imaging Services [address] [place] [address] Chest PA and Lateral MR#: [id number] Acct: [id number] Name: UNA COSBY Rep #: [id number] : 1995 M 29 From: Roberto Babin MD PCP: Care Physician,No Primary Status: REG ER Study:Chest PA and Lateral Date of Exam: 01/26/25 Exam# [id number] Ordering Dr: Beverly Wharton PROCEDURE: CHEST PA AND LATERAL 01/26/2025 REASON FOR EXAM: CHEST PAIN TECHNIQUE: CHEST PA AND LATERAL COMPARISON: Prior study dated October 19, 2024. FINDINGS: Hardware: EKG electrodes. Heart: Unremarkable Mediastinum: The mediastinal contour is unremarkable. Lungs: The lungs are clear. Bones: The bones are unremarkable. RAD/Chest PA and Lateral IMPRESSION: NO ACUTE FINDINGS. Reading Location: [place] [address] CC: ZAIN Baker; No Primary Care Physician ~ Research Editor: Signed [facility]05-08-2025 Discharge summary [facility] Medical Records Department [address] [place] [address] Emergency Department Summary 12/13/24 MR#: [id number] Acct: [id number] Name: UNA COSBY Rep #:[id number] : 1995 29 From: Juan Rivas MD [...] he cannot keep anything down all day. [facility] Medical History Learning difficulty due to [...] % (Auto) 53.8 Lymph % (Auto) 33.9 [place] % (Auto) 8.1 Eos % (Auto) 3.3 [...] Clarity Clear Urine pH 7.0 Ur Specific [place] 1.005 Urine Protein 30 H Urine Glucose [...] (Auto) Neut % (Auto) Lymph % (Auto) [place] % (Auto) Eos % (Auto) Baso % (Auto) Absolute Neuts (auto) Absolute Lymphs (auto) Nucleated RBC % Sodium 136 Potassium 3.6 Chloride 103 Carbon Dioxide 24.0 Anion Gap 9 BUN 10 Creatinine 0.64 L Estim Creat Clear Calc 126.32 Est GFR (MDRD) Non-Af 133 BUN/Creatinine Ratio 16.2 Glucose 275 H Calcium 7.8 b-Hydroxybutyric mmol/L Urine Color Urine Clarity Urine pH Ur Specific [place] Urine Protein Urine Glucose (UA) Urine Ketones [...] (Auto) Neut % (Auto) Lymph % (Auto) [place] % (Auto) Eos % (Auto) Baso % (Auto) Absolute Neuts (auto) Absolute Lymphs (auto) Nucleated RBC % Sodium Potassium Chloride Carbon Dioxide Anion Gap BUN Creatinine Estim Creat Clear Calc Est GFR (MDRD) Non-Af BUN/Creatinine Ratio Glucose Calcium b-Hydroxybutyric mmol/L Urine Color Urine Clarity Urine pH Ur Specific [place] Urine Protein Urine Glucose (UA) Urine Ketones [...] 1-2 Days if not improving Print Language: [place] Disposition Disposition: Home, Self Care What to do if you have Problems For any increased pain, shortness of breath, bleeding, nausea or vomiting, chestpain, or any unexpected problems, contact your Primary Care Provider. Call [facility] ([phone]) or report tothe closest Emergency Room. Call 911 if necessary. 12/14/24 0213 Cosigner Signature (if applicable): CC: No Primary Care Physician ~ Signed [facility]05-07-2025 Discharge summary Author Juan Rivas [facility] Note Date/Time December 14, 2024 2:13am [facility] Medical Records Department [address] [place] [address] Emergency Department Summary 12/13/24 MR#: [id number] Acct: [id number] Name: UNA COSBY Rep #:[id number] : 1995 29 From: Juan Rivas MD [...] he cannot keep anything down all day. 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 [...] % (Auto) 53.8 Lymph % (Auto) 33.9 [place] % (Auto) 8.1 Eos % (Auto) 3.3 [...] Clarity Clear Urine pH 7.0 Ur Specific [place] 1.005 Urine Protein 30 H Urine Glucose [...] (Auto) Neut % (Auto) Lymph % (Auto) [place] % (Auto) Eos % (Auto) Baso % (Auto) Absolute Neuts (auto) Absolute Lymphs (auto) Nucleated RBC % Sodium 136 Potassium 3.6 Chloride 103 Carbon Dioxide 24.0 Anion Gap 9 BUN 10 Creatinine 0.64 L Estim Creat Clear Calc 126.32 Est GFR (MDRD) Non-Af 133 BUN/Creatinine Ratio 16.2 Glucose 275 H Calcium 7.8 b-Hydroxybutyric mmol/L Urine Color Urine Clarity Urine pH Ur Specific [place] Urine Protein Urine Glucose (UA) Urine Ketones [...] (Auto) Neut % (Auto) Lymph % (Auto) [place] % (Auto) Eos % (Auto) Baso % (Auto) Absolute Neuts (auto) Absolute Lymphs (auto) Nucleated RBC % Sodium Potassium Chloride Carbon Dioxide Anion Gap BUN Creatinine Estim Creat Clear Calc Est GFR (MDRD) Non-Af BUN/Creatinine Ratio Glucose Calcium b-Hydroxybutyric mmol/L Urine Color Urine Clarity Urine pH Ur Specific [place] Urine Protein Urine Glucose (UA) Urine Ketones [...] 1-2 Days if not improving Print Language: [place] Disposition Disposition: Home, Self Care What to do if you have Problems For any increased pain, shortness of breath, bleeding, nausea or vomiting, chestpain, or any unexpected problems, contact your Primary Care Provider. Call [facility] ([phone]) or report to the closest Emergency Room. Call 911 if necessary. 12/14/24 021 <Electronically signed by Juan Rivas MD> Cosigner Signature (if applicable): CC: No Primary Care Physician ~ Signed [facility] Work Phone: 1([phone]) 353-836203-13-2025 Discharge summary [facility] Medical Records Department [address] [place] [address] Emergency Department Summary 10/19/24 MR#: [id number] Acct: [id number] Name: UNA COSBY Rep #:[id number] : 1995 29 From: Keisha Maldonado PCP: [...] complaints or concerns reported at this time. [facility] Medical History Learning difficulty due to [...] % (Auto) 63.5 Lymph % (Auto) 27.7 [place] % (Auto) 6.2 Eos % (Auto) 1.5 [...] Clarity Clear Urine pH 6.0 Ur Specific [place] 1.010 Urine Protein 100 H Urine Glucose [...] No evidence of acute disease. Reading Location: [facility] Rhythm Strip Rhythm [...] workup was largely normal with no findings operations administrative assistant with heart attack or other acute cardiac/heart process Print Language: Anguillan Disposition Disposition: Home, Self Care What to do if you have Problems For any increased pain, shortness of breath, bleeding, nausea or vomiting, chestpain, or any unexpected problems, contact your Primary Care Provider. Call [facility] ([phone]) or report tothe closest Emergency Room. Call 911 if necessary. 10/19/24 0516 Cosigner Signature (if applicable): CC: No Primary Care Physician ~ Signed [facility]03-13-2025 Radiology Diagnostic study note [facility] Imaging Services [address] [facility] [address] [place], [place] [address] Chest PA and Lateral MR#: [id number] Acct: [id number] Name: DOMIUNA JUAN Rep #: [id number] : 1995 M 29 From: Damian Massey MD PCP: Dr. Deangelo Noel MD Status: NM E ER Study:Chest PA and Lateral Date of Exam: 10/19/24 Exam# [id number] Ordering Dr: Danielle Handy DO PROCEDURE: CHEST PA AND LATERAL REASON FOR EXAM: CHEST PAIN TECHNIQUE: PA and lateral views of the chest. COMPARISON: 02/15/2023 FINDINGS: The lungs are clear. The cardiac and mediastinal contours are within limits. The visualized osseousstructures appear within limits. RAD/Chest PA and Lateral IMPRESSION: No evidence of acute disease. Reading Location: [id number] CC: Dr. Keisha Handy DO; Dr. Deangelo Noel MD ~ Research Editor: Signed [facility]05-28-[address] Zarate [facility] January 04, 2023 12:28am Note Date/Time January 03, 2023 11:04 pm [facility] Medical Records Department [address] [place] [address] Emergency Department Summary 01/03/23 MR#: [id number] Acct: [id number] Name: UNA COSBY Rep #:[id number] : 1995 27 From: Darren Maldonado PCP: [...] 45.8 L Lymph % (Auto) 42.3 H [place] % (Auto) 7.8 Eos % (Auto) 3.2 [...] asinus tachycardia with a rate of 117. NM interval, QRS interval, and QTc intervals were all normal. [place] was normal. There are no acute ST [...] your Primary Care Provider. Call [facility] ([phone]) or report to the closest Emergency Room. Call 911 if necessary. 01/04/23 0028 <Electronically signed by Darren Zarate DO> Cosigner Signature (if applicable): CC: Dr. Deangelo Noel MD ~ Signed [facility] Work Phone: [phone] 371-966404-27-[address] Calvillo [facility] December 03, 2022 11:22pm Note Date/Time December 03, 2022 9:2 1pm [facility] Medical Records Department [address] [place] [address] Emergency Department Summary 12/03/22 MR#: [id number] Acct: [id number] Name: UNA COSBY Rep #:[id number] : 1995 27 From: Edgar Calvillo DO [...] Denies drug use. No history of DVT/PE. [facility] Medical History Anxiety Depression H/O fracture [...] % (Auto) 62.3 Lymph % (Auto) 26.9 [place] % (Auto) 8.0 Eos % (Auto) 2.0 [...] your Primary Care Provider. Call [facility] ([phone]) or report to the closest Emergency Room. Call 911 if necessary. 12/03/222321 <Electronically signed by Edgar Calvillo DO> Cosigner Signature (if applicable): CC: Dr. Deangelo Noel MD ~ Signed [facility] Work Phone: [phone] [phone] Miscellaneous Notes* Telephone Encounter - Laurent Sutherland MA - 10/05/2022 10:01 AM EST Patient notified and voiced understanding. Laurent Sutherland MA Letter taken to medial records. Laurent Sutherland MA * Telephone Encounter - Phillip [...] with anyone in family medicine. Phillip Howe APRN.ANNA * Telephone Encounter - Julius Luis - 10/03/2022 2:55 PM EST Pt is trying to get a new social security card and must have a letter from a physician. The letter must include -typed on letterhead -must include pt's name -must clearly state that the pt is a pt at the [facility] -letter must be within the last 4 years -letter must be signed and dated by doctor or staff member There is no PCP listed under the pt but has been seen by Dr. Noel's in the past. Please call pt with any information. [facility] Miscellaneous Notes* Telephone Encounter - Rajwinder [...] medicine. Phillip Howe APRN.CNP documented in this encounterC[facility]01-16-2023 Miscellaneous Notes* Telephone Encounter - Phillip [...] advise. Rajwinder Rosales LPN documented in this encounterC[facility]12-01-2022 Miscellaneous Notes* Telephone Encounter - Parvin Hannah Ma - 07/09/2022 2:05 PM EST PA received from pharmacy but when accessing it through covermeds state PA not needed. Did verifywith pharmacy medication goes through with no issue an is covered. Parvin Hannah Ma documented in this encounterC[facility]11-29-2022 History of Present illness Narrative* Phillip Howe APRN.CNP - 07/07/2022 2:00 PM EST Patient came to appointment today. He was in the [facility] 1 1/2 hours ago with complaints of chest pain, shortness of breath and lungs filling up with fluids. Had been out of his insulin for a few days. He was triaged by a provider in [facility] and sent to the ER. I discussed [...] meals. Give along with SSI coverage Insulin [place], Disposable, (BD ULTRAFINE III MINI PEN) 31 gauge x 3/16 100 Each 11 Sig: as directed for insulin injections 3 times a day Insulin Syringe-Needle U-100 (BD INSULIN SYRINGE ULTRAFINE) 0.3 mL 31 gauge x 5/16 100 Each 11 Sig: Use 4 times daily and prn Phillip Howe APRN.CNP documented in this encounterC[facility]11-29-2022 History of Present illness Narrative* Isaiah Caldera APRN.CNP - 07/07/2022 12:09 PM EST [facility]. States has not taken insulin for few days/out of medicine. Reportslungs are filling up with fluid and reports constant chest pain. I will refer to ER. Mildly ill appearing but no distress. documented in this encounterC[facility]11-04-2022 Miscellaneous Notes* Telephone Encounter - Meri [...] planned Deangelo Noel MD documented in this encounterC[facility]11-01-2022 Miscellaneous Notes* Telephone Encounter - Deangelo [...] name and birthdate: Yes Call received from [facility] at 4:33 PM to report an urgent value for glucose with a result of 555. Dr. Noel was notified of the result at 4:34PM. Marcy Ponce Lpn documented in this encounterCrystal [facility]11-01-2022 Miscellaneous Notes* Telephone Encounter - Phillip Howe APRN.HISTORICAL SOCIETY DIRECTOR - 06/09/2022 10:53 AM EDT The following approved medication requests have been transmitted electronically. Requested Prescriptions Pending Prescriptions Disp Refills Insulin [place], Disposable, (BD ULTRAFINE III MINI PEN) 31 [...] meals. Give along with SSI coverage Insulin [place], Disposable, (BD ULTRAFINE III MINI PEN) 31 [...] advise. Sindy Brar Pss documented in this encounterCrystal [facility]10-30-2022 Miscellaneous Notes* Telephone Encounter - Radha Hameed APRN.CNP - 06/07/2022 11:09 AM EDT Medications reordered today, needs appointment for further refills. Radha Hameed APRN.CNP documented in this encounterCrystal [facility]07-27-2022 History of Present illness Narrative* Rajwinder Rosales LPN - 03/04/2022 9:29 AM EDT TRANSITION CARE MANAGEMENT (TCM) INITIAL CONTACT Mailing Machine Helper Outreach Provider Action/FYI: Unable to reach Pt. mailbox is not set up and and other number not working. Called X2 Initial contact with patient post discharge, spoke to . Patient identified by name and . TRANSITION CARE MANAGEMENT INITIAL OUTREACH DOCUMENTATION: No flowsheet data found. SUMMARY: -Pt discharged from [facility] on 03/03/22. -Admitted for: High blood [...] records from recent hospitalization: documented in this encounterC[facility]04-12-2022 History of Present illness Narrative* Sabrina [...] Care Gap or Scheduling/Wellness visits Payer: Payor: [place] [employer] / Plan: [employer] MEDICAID / Product Type: Medicaid / Care [...] later. Rajwinder Rosales LPN * Phillip Howe APRN.HISTORICAL SOCIETY DIRECTOR - 11/17/2021 10:55 AM EDT STAMP Please reach out to patient for overdue appointment for chronic disease management with myself, Dr.Elderbrock or Meena Recinos. Labs are ordered. If he/she is no longer following with Dr. Noel, please remove name from PCP field. Phillip Howe APRN.CNP documented in this encounterC[facility]11-29-2021 Miscellaneous Notes* Telephone Encounter - Phillip [...] 07/01. Patricia Ordoñez LPN documented in this encounterCrystal [facility]10-21-2010 History of Past illness Narrative* Problem Noted Date Resolved Date Diabetes mellitus type 1 with ketoacidosis 05/2905/29/2010 documented as of this encounter (statuses as of 11/18/2021) [facility] History of Past illness Narrative* Problem Noted Date Resolved Date Diabetes mellitus type 1 with ketoacidosis 05/2905/29/2010 documented as of this encounter (statuses as of 12/09/2021) [facility] History of Past illness Narrative* Problem Noted Date Resolved Date Diabetes mellitus type 1 with ketoacidosis 05/2905/29/2010 documented as of this encounter (statuses as of 04/06/2022) [facility] History of Past illness Narrative* Problem Noted Date Resolved Date Diabetes mellitus type 1 with ketoacidosis 05/2905/29/2010 documented as of this encounter (statuses as of 06/07/2022) [facility] History of Past illness Narrative* Problem Noted Date Resolved Date Diabetes mellitus type 1 with ketoacidosis 05/2905/29/2010 documented as of this encounter (statuses as of 06/09/2022) [facility] History of Past illness Narrative* Problem Noted Date Resolved Date Diabetes mellitus type 1 with ketoacidosis 05/2905/29/2010 documented as of this encounter (statuses as of 06/09/2022) [facility] History of Past illness Narrative* Problem Noted Date Resolved Date Diabetes mellitus type 1 with ketoacidosis 05/2905/29/2010 documented as of this encounter (statuses as of 06/12/2022) [facility] of Past illness Narrative* Problem Noted Date Resolved Date Diabetes mellitus type 1 with ketoacidosis 05/2905/29/2010 documented as of this encounter (statuses as of 07/07/2022) [facility] of Past illness Narrative* Problem Noted Date Resolved Date Diabetes mellitus type 1 with ketoacidosis 05/2905/29/2010 documented as of this encounter (statuses as of 07/07/2022) [facility] of Past illness Narrative* Problem Noted Date Resolved Date Diabetes mellitus type 1 with ketoacidosis 05/2905/29/2010 documented as of this encounter (statuses as of 07/09/2022) [facility] History of Past illness Narrative* Problem Noted Date Resolved Date Diabetes mellitus type 1 with ketoacidosis 05/2905/29/2010 documented as of this encounter (statuses as of 08/24/2022) [facility] History of Past illness Narrative* Problem Noted Date Resolved Date Diabetes mellitus type 1 with ketoacidosis 05/2905/29/2010 documented as of this encounter (statuses as of 09/25/2022) [facility] of Past illness Narrative* Problem Noted Date Resolved Date Diabetes mellitus type 1 with ketoacidosis 05/2905/29/2010 documented as of this encounter (statuses as of 10/05/2022) [facility] History of Past illness Narrative* Problem Noted Date Resolved Date Diabetes mellitus type 1 with ketoacidosis 05/2905/29/2010 documented as of this encounter (statuses as of 10/06/2022) [facility] CenterDis[facility] summary Author Sandy Mcclain [facility] November 17, 2022 2:01am Note Date/Time November 17, 2022 1:1 8am [facility] Medical Records Department [address] [place] [address] Emergency Department Summary 11/17/22 MR#: [id number] Acct: [id number] Name: UNA COSBY Rep #:[id number] : 1995 27 From: Jimmie Palomino MD [...] Patient states he needs to see a 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 But he has not made any calls tosee them despite referrals. He states his phone only works on [employer]. I have recommended he try to use a phone at work or borrow a friend's phone to make those calls as it is important that he gets in. Patient denies any travel surgery immobilization personal or family history of DVT or PE. [facility] Medical History Anxiety Depression H/O fracture [...] % (Auto) 49.8 Lymph % (Auto) 38.9 [place] % (Auto) 7.7 Eos % (Auto) 2.8 [...] cycle. No acute ST elevation or depression. NM interval, QRS duration and QTc are normal. [...] problems, contact your Primary Care Provider. Call [facility] Registry ([phone]) or report to the closest Emergency Room. [...] applicable): cc: Deangelo Noel MD ~* Signed [facility] Work Phone: Discharge summary Author Keisha Handy [facility] Note Date/Time October 19, 2024 5:1 6am [facility] Medical Records Department [address] [place] [address] Emergency Department Summary 10/19/24 MR#: [id number] Acct: [id number] Name: UNA COSBY Rep #:[id number] : 1995 29 From: Keisha Maldonado PCP: [...] complaints or concerns reported at this time. [facility] Medical History Learning difficulty due to [...] mL 31 gauge x /16 (TRUEplus Insulin) Allergy/AdvReac Type Severity Reaction Status [...] % (Auto) 63.5 Lymph % (Auto) 27.7 [place] % (Auto) 6.2 Eos % (Auto) 1.5 [...] Clarity Clear Urine pH 6.0 Ur Specific [place] 1.010 Urine Protein 100 H Urine Glucose [...] No evidence of acute disease. Reading Location: [facility] Rhythm Strip Rhythm [...] workup was largely normal with no findings operations administrative assistant with heart attack or other acute cardiac/heart process Print Language: Anguillan Disposition Disposition: Home, Self Care What to do if you have Problems For any increased pain, shortness of breath, bleeding, nausea or vomiting, chestpain, or any unexpected problems, contact your Primary Care Provider. Call [facility] ([phone]) or report to the closest Emergency Room. Call 911 if necessary. 10/19/24 0516 <Electronically signed by Keisha Handy DO> Cosigner Signature (if applicable): CC: No Primary Care Physician ~ Signed [facility] Work Phone: Discharge summary Author Alo Zambrano [facility] Note Date/Time February 05, 2025 4:45 pm [facility] Medical Records Department [address] [place] [address] Discharge Summary 02/05/25 1642 MR#: [id number] Acct: [id number] Name: UNA COSBY Rep #:[id number] : 1995 29 From: Alo Lombardo PCP: Care Physician,No Primary Status :ADM IN Location: ICU CVICU 2-1 Providers Date of Admission: 02/05/25 Date [...] % (Auto) 55.6, Lymph % (Auto) 31.1, [place] % (Auto) 9.0, Eos % (Auto) 3.4, [...] Clarity Clear, Urine pH 6.0, Ur Specific [place] 1.010, Urine Protein 30 H, Urine Glucose [...] % (Auto) 52.3, Lymph % (Auto) 34.1, [place] % (Auto) 8.5, Eos % (Auto) 4.2, [...] Medical Advice Charges/Coding Visit Charges Inpatient E&M: 09927 Disch Hosp >30min 02/05/25 1645 <Electronically signed by Alo Zambrano MD> Cosigner Signature (if applicable): CC: Dr. Alo Zambrano MD; No Primary Care Physician~ Signed [facility] Work Phone: Discharge summary Author Berny Nelson [facility] Note Date/Time February 28, 2025 8:56 am [facility] Medical Records Department [address] [place] [place] [address] Instructions for Home/Discharge Instructions 02/28/25 0853 MR#: [id number] Acct: [id number] Name: UNA COSBY Rep #:[id number] : 1995 29 From: Berny yeager MD PCP: Care Physician,No Primary Status :ADM IN Discharge Instructions DC O2, CPAP, BIPAP needs Home O2 Discharge instructions: No Dressing / Incision Discharge Activity: Return to Normal Activity Dressing / Incision Call your doctor if you observe: Fever of 101 or Higher, Shortness of breath, Dizziness, Fainting spells, Swelling in the ankles, Chest pain and Increased palpitations (irregular heartbeat) Follow Up Care Test Results: Test results from this visit will be discussed in further detail at your follow- up appointment, if applicable. Discharge Plan Admission Admit Date/Time: 02/27/25 14:52 Attending Provider: Berny Nelson Primary Care Provider: Care Physician,No Primary Consulting Providers: Marcelina Erickson Instructions Patient Instructions: Ketoacidosis Ch Discharge Orders/Prescriptions Prescriptions: Continued insulin lispro 100 UNIT/ML insulin pen See Rx Instructions SQ TIDCM Rx Instructions: SLIDING SCALE SQ 3 times daily with meals; +SLIDING SCALE insulin glargine [Lantus Solostar U-100 Insulin] 100 unit/mL (3 mL) insulin pen 30 unit subcut QPM ondansetron 8 mg tablet,disintegrating 8 mg PO Q8H PRN (Reason: nausea and vomiting) Qty: 12 0RF Discontinued insulin glargine [Lantus U-100 Insulin] 100 unit/mL solution 35 unit subcut QHS insulin lispro 100 unit/mL solution 25 unit subcut TIDCM Patient Comments: inject 25 three times a day No Action (DME) insulin syringe-needle U-100 [TRUEplus Insulin] 0.5 mL 31 gauge x 5/16 syringe 1 syringe MISCELLANEOUS 4X/DAY Referrals / Follow Up: Care Physician,No Primary [Primary Care Provider] - Disposition Disposition (needs filled in before D/C Order can be placed): Home, Self Care 02/28/25 0856<Electronically signed by Berny Nelson MD>Berny Nelson MD CC: Dr. Marcelina Erickson MD; No Primary Care Physician ~ Signed [facility] Work Phone: Evaluation + Plan note No data available for this section [facility] Evaluation note* Diagnosis Uncontrolled type 1 diabetes mellitus with hypoglycemia without coma (HCC)- Primary documented in this encounter [facility] [place] [facility]* Diagnosis Uncontrolled type 1 diabetes mellitus with hypoglycemia without coma (HCC) documented in this encounter [facility] CenterEvalunem[facility] [place] noteNo assessment information availableWOhioHealth [facility] Work Phone: Evaluation note* Diagnosis Onset Date Resolution Status Acute dehydration acute Acute hyperkalemia acute [place] (acute kidney injury) ac [place] DKA, type 1 acute Hyperphosphatemia acute Noncompliance with medication regimen acute Pseudohyponatremia acute [facility] Work Phone: Evaluation note* Diagnosis Uncontrolled type 1 diabetes mellitus with hypoglycemia without coma (HCC) documented in this encounter [facility] [place] [facility]* Diagnosis Uncontrolled type 1 diabetes mellitus [...] spinal cord injury documented in this encounter [facility] [place] [facility]* Diagnosis Onset Date Resolution Status Noncompliance with medication regimen acute Acute dehydration resolved Acute hyperkalemia resolved [place] (acute kidney injury) re solved DKA, type 1 resolved Hyperphosphatemia resolved Pseudohyponatremia resolved [facility] Work Phone: Evaluation note* Diagnosis Chest pain, unspecified type- Primary High blood sugar Other abnormal glucose documented in this encounter [facility]Eval[facility] [place] [facility]* Diagnosis APPOINTMENT CANCELLED- Primary Uncontrolled type 1 diabetes mellitus with hypoglycemia without coma (HCC) Type I (juvenile type) diabetes mellitus without mention of complication, not stated as uncontrolled (HCC) Type I (juvenile type) diabetes mellitus without mention of complication, not stated as uncontrolled documented in this encounter [facility] [place] [facility]* Diagnosis Onset Date Resolution Status [place] (acute kidney injury) ac [place] DKA (diabetic ketoacidoses) acute Hematemesis of unknown cause acute Lactic acidosis acute Noncompliance with medication regimen acute [facility] Work Phone: Evaluation note* Diagnosis Uncontrolled type 1 diabetes mellitus with hypoglycemia without coma (HCC) documented [facility] this encounter [facility]* Diagnosis Onset Date Resolution Status Noncompliance with medication regimen acute [place] (acute kidney injury) re solved DKA (diabetic ketoacidoses) resolved Hematemesis of unknown cause resolved Lactic acidosis resolved [facility] Work Phone: Evaluation note* Diagnosis Onset Date Resolution Status Admit Date DKA (diabetic ketoacidosis) acute February 05, 2025 3:44am Hyperglycemia acute February 05, 2025 3:44am Vomiting acute February 05 3:44am [facility] Work Phone: History and physical note Author Sarah Oh [facility] Note Date/Time February 05, 2025 4:01 am [facility] Medical Records Department [address] [place] [address] H&P Exam - Hospitalist 02/05/25 0343 MR#: [id number] Acct: [id number] Name: UNA COSBY Rep #:[id number] : 1995 29 From: Sarah Oh MD [...] reported, Tobacco use who presents to the [facility] ED on 02/05/2025 with history of [...] 1 and initiated on an insulin drip. [facility] Medical History Noncompliance with medication regimen Anxiety [...] % (Auto) 55.6, Lymph % (Auto) 31.1, [place] % (Auto) 9.0, Eos % (Auto) 3.4, [...] reported, Tobacco use who presents to the [facility] ED on 02/05/2025 with history of [...] prophylaxis: Lovenox. Charges/Coding Visit Charges Inpatient E&M: 43034 Init Hosp L3 02/05/25 0401 <Electronically signed by Sarah Oh MD> Cosigner Signature (if applicable): CC: Dr. Sarah Oh MD; No Primary Care Physician~ Signed [facility] Work Phone: History and physical note Author Marcelina Erickson [facility] Note Date/Time February 27, 2025 3:01 pm [facility] Medical Records Department [address] [place] [address] H&P Exam - Hospitalist 02/27/25 1452 MR#: [id number] Acct: [id number] Name: UNA COSBY Rep #:[id number] : 1995 29 From: Marcelina Erickson MD PCP: Care Physician,No Primary Status :ADM IN Location: ICU CVICU20 3-1 HPI - General General Date of Admission: 02/27/25 Date of Service: 02/27/25 Chief Complaint: Heart palpitations HPI Narrative UNA COSBY, is [id number] male history of type 1 diabetes and tobacco usepresented to [facility] ED 02/27/2025 with complaints of heart [...] at bedtime. Per patient he reports compliance [facility] Medical History Noncompliance with medication regimen Anxiety [...] Neut % (Auto) 59.1, Lymph % (Auto) 28.6,[place] % (Auto) 7.6, Eos % (Auto) 3.4, [...] Clarity Clear, Urine pH 6.0, Ur Specific [place] 1.010, Urine Protein 15 H, Urine Glucose [...] if patient does not already have an financial supervisor would benefit from establishingcare with 1 # [...] Erickson MD Charges/Coding Visit Charges Inpatient E&M: 77805 [facility] 02/27/25 1501 <Electronically signed by Marcelina Erickson MD> Cosigner Signature (if applicable): CC: Dr. Marcelina Erickson MD; No Primary Care Physician~ Signed [facility] Work Phone: Hospital Discharge instructions Additional [...] care physician for further outpatient evaluation and management.[facility] Work Phone: Hospital Discharge instructions Additional [...] workup was largely normal with no findings operations administrative assistant with heart attack or other acute cardiac/heart processWOhio[facility] Work Phone: Hospital Discharge instructions Additional Instructions Follow-up with your PCP and return for any worsening symptoms.[facility] Work Phone: Hospital Discharge instructions Additional Instructions I am not sure what the cause of your palpitations and is. Your screening labs look normal other than very high glucose over 480. It is important you take your insulin as scheduled and make good food choices for a diabetic diet. Follow-up your primary care doctor.[facility] Work Phone: Reason for referral (narrative)No reason for referral information availableWOhioHealth [facility] Work Phone: Summary Purpose Family History No Family History Records Found Relationship Condition Age at Onset Recorded Date/T bertin father Diabetes mellitus Unknown Relationship Condition Age at Onset Recorded Date/T bertin father Diabetes mellitus Unknown mother Cardiac disease Unknown Coronary artery disease Unknown Hypertension Unknown Heart failure Unknown Advance Directives No Advanced Directives Records FoundDocuments on File Type Date Recorded Patient Rn Care Manager Expl anation Advance Directive(s) 03/23/2018 2:01 PM Advance Directive Response Recorded Date/ Time Advance Directives No October 08 6:31pm Living Will No January 31, 2022 10:37am Power of Fats And Oils Loader No January 31 10:37am Advance Directive Response Recorded Date/ Time Advance Directives No October 08 6:31pm Living Will No 2022 10:52am Power of Fats And Oils Loader No March 02 10:52am Advance Directive Response Recorded Date/ Time Advance Directives No October 08 6:31pm Living Will No 2022 12:30pm Power of Fats And Oils Loader No March 02 12:30pm Advance Directive Response Recorded Date/ Time Advance Directives No October 08 5:31pm Living Will No June 30 10:32pm Power of Fats And Oils Loader No June 30, 2022 10:32pm Advance Directive Response Recorded Date/ Time Advance Directives No October 08 5:31pm Living Will No August 18 11:46am Power of Fats And Oils Loader No August 18, 2022 11:46am Advance Directive Response Recorded Date/ Time Advance Directives No October 08 5:31pm Living Will No August 24 9:15pm Power of Fats And Oils Loader No August 24, 2022 9:15pm Advance Directive Response Recorded Date/ Time Advance Directives No October 08 5:31pm Living Will No October 13, 2022 3:59am Power of Fats And Oils Loader No October 13 3:59am Advance Directive Response Recorded Date/ Time Advance Directives No October 08 6:31pm Living Will No October 13, 2022 4:59am Power of Fats And Oils Loader No October 13 4:59am Advance Directive Response Recorded Date/ Time Advance Directives No October 08 6:31pm Living Will No November 17, 2022 2:01am Power of Fats And Oils Loader No November 17 2:01am Advance Directive Response Recorded Date/ Time Advance Directives No October 08 6:31pm Living Will No December 03, 2022 8:34pm Power of Fats And Oils Loader No December 03 8:34pm Advance Directive Response Recorded Date/ Time Advance Directives No October 08 6:31pm Living Will No December 09, 2022 6: 27pm Power of Fats And Oils Loader No December 09, 2022 6:27pm Advance Directive Response Recorded Date/ Time Advance Directives No October 08 6:31pm Living Will No January 03, 2023 1 0:21pm Power of Fats And Oils Loader No January 03, 2023 10:21pm Advance Directive Response Recorded Date/ Time Living Will No October 19, 2024 12:14am Power of Fats And Oils Loader No October 19 12:14am Advance Directives No October 08 6:31pm Advance Directive Response Recorded Date/ Time Living Will No November 11, 2024 5:45pm Do you have a Healthcare Power of Fats And Oils Loader? No November 11, 2024 5:45pm Living Will No October 19, 2024 12:14am Do you have a Healthcare Power of Fats And Oils Loader? No October 19, 2024 12:14am Advance Directives No October 08 6:31pm Advance Directive Response Recorded Date/ Time Living Will No November 11, 2024 5:45pm Do you have a Healthcare Power of Fats And Oils Loader? No November 11, 2024 5:45pm Do you have a Healthcare Power of Fats And Oils Loader? No December 12, 2024 1:02pm Living Will No October 19, 2024 12:14am Do you have a Healthcare Power of Fats And Oils Loader? No October 19, 2024 12:14am Do you have a Healthcare Power of Fats And Oils Loader? No December 13, 2024 9:49pm Advance Directives No October 08 6:31pm Advance Directive Response Recorded Date/ Time Living Will No November 11, 2024 5:45pm Do you have a Healthcare Power of Fats And Oils Loader? No November 11, 2024 5:45pm Do you have a Healthcare Power of Fats And Oils Loader? No December 12, 2024 1:02pm Do you have a Healthcare Power of Fats And Oils Loader? No January 26, 2025 12:12pm Living Will No October 19, 2024 12:14am Do you have a Healthcare Power of Fats And Oils Loader? No October 19, 2024 12:14am Do you have a Healthcare Power of Fats And Oils Loader? No December 13, 2024 9:49pm Advance Directives No October 08 6:31pm Advance Directive Response Recorded Date/ Time Living Will No November 11, 2024 5:45pm Do you have a Healthcare Power of Fats And Oils Loader? No November 11, 2024 5:45pm Do you have a Healthcare Power of Fats And Oils Loader? No December 12, 2024 1:02pm Do you have a Healthcare Power of Fats And Oils Loader? No January 26, 2025 12:12pm Living Will No October 19, 2024 12:14am Do you have a Healthcare Power of Fats And Oils Loader? No October 19, 2024 12:14am Do you have a Healthcare Power of Fats And Oils Loader? No December 13, 2024 9:49pm Do you have a Healthcare Power of Fats And Oils Loader? No February 05, 2025 2:23am Advance Directives No October 08 6:31pm Advance Directive Response Recorded Date/ Time Living Will No November 11, 2024 5:45pm Do you have a Healthcare Power of Fats And Oils Loader? No November 11, 2024 5:45pm Do you have a Healthcare Power of Fats And Oils Loader? No December 12, 2024 1:02pm Do you have a Healthcare Power of Fats And Oils Loader? No January 26, 2025 12:12pm Living Will No October 19, 2024 12:14am Do you have a Healthcare Power of Fats And Oils Loader? No October 19, 2024 12:14am Do you have a Healthcare Power of Fats And Oils Loader? No December 13, 2024 9:49pm Do you have a Healthcare Power of Fats And Oils Loader? No February 05, 2025 4:26am Advance Directives No October 08 6:31pm Advance Directive Response Recorded Date/ Time Living Will No November 11, 2024 5:45pm Do you have a Healthcare Power of Fats And Oils Loader? No November 11, 2024 5:45pm Do you have a Healthcare Power of Fats And Oils Loader? No December 12, 2024 1:02pm Do you have a Healthcare Power of Fats And Oils Loader? No January 26, 2025 12:12pm Do you have a Healthcare Power of Fats And Oils Loader? No December 13, 2024 9:49pm Do you have a Healthcare Power of Fats And Oils Loader? No February 05, 2025 4:26am Do you have a Healthcare Power of Fats And Oils Loader? No February 27, 2025 12:52pm Advance Directives No October 08 6:31pm Advance Directive Response Recorded Date/ Time Living Will No November 11, 2024 5:45pm Do you have a Healthcare Power of Fats And Oils Loader? No November 11, 2024 5:45pm Do you have a Healthcare Power of Fats And Oils Loader? No December 12, 2024 1:02pm Do you have a Healthcare Power of Fats And Oils Loader? No January 26, 2025 12:12pm Do you have a Healthcare Power of Fats And Oils Loader? No December 13, 2024 9:49pm Do you have a Healthcare Power of Fats And Oils Loader? No February 05, 2025 4:26am Do you have a Healthcare Power of Fats And Oils Loader? No February 27, 2025 3:02pm Advance Directives No October 08 6:31pm Chief [...] with hypoglycemia without coma (HCC) Radha Hameed, LEVERS LACE MACHINE OPERATOR.HISTORICAL SOCIETY DIRECTOR [address] [place] [address] Referral ID Status Reason Start Date Expiration Date Visits Re quested Visits Authorized [id number] Closed 1 1 Additional Source Comments (unrecognized sect ion and content) No Status Records FoundNo Status Records FoundNo Status Records FoundNo Status Records FoundNo Status Records FoundNo Status Records Found INFORMATION SOURCE (unrecogn ized section and content) DATE CREATED AUTHOR 01/25/2018 [facility] DATE CREATED AUTHOR AUTHOR'S ORGANIZ ATION 05/20/2018 [facility] DATE CREATED AUTHOR AUTHOR'S ORGANIZ ATION 05/27/2018 [facility] DATE CREATED AUTHOR AUTHOR'S ORGANIZ ATION 03/07/2025 [facility] DATE CREATED AUTHOR AUTHOR'S ORGANIZ ATION 03/28/2025 [facility] DATE CREATED AUTHOR AUTHOR'S ORGANIZ ATION 04/13/2025 [facility] Source Comments (unrecognize d section and content) In the event this informatio n is protected by the Federal Confidentiality of Alcohol and Drug Abuse Patient Records regulations: The Federal rules restrict any use of the information to criminally investigate or prosecute any alcohol or drug abuse patient.[facility] Center[facility] the event this information is protected by the Federal Confidentiality of Alcohol and Drug Abuse Patient Records regulations: The Federal rules restrict any use of the information to criminally investigate or prosecute any alcohol or drug abuse patient.[facility] CenterIn the event this information is protected by the Federal Confidentiality of Alcohol and Drug Abuse Patient Records regulations: The Federal rules restrict any use of the information to criminally investigate or prosecute any alcohol or drug abuse patient.[facility] CenterIn the event this information is protected by the Federal Confidentiality of Alcohol and Drug Abuse Patient Records regulations: The Federal rules restrict any use of the information to criminally investigate or prosecute any alcohol or drug abuse patient.[facility] CenterIn the event this information is protected by the Federal Confidentiality of Alcohol and Drug Abuse Patient Records regulations: The Federal rules restrict any use of the information to criminally investigate or prosecute any alcohol or drug abuse patient.[facility] CenterIn the event this information is protected by the Federal Confidentiality of Alcohol and Drug Abuse Patient Records regulations: The Federal rules restrict any use of the information to criminally investigate or prosecute any alcohol or drug abuse patient.[facility] CenterIn the event this information is protected by the Federal Confidentiality of Alcohol and Drug Abuse Patient Records regulations: The Federal rules restrict any use of the information to criminally investigate or prosecute any alcohol or drug abuse patient.[facility] CenterIn the event this information is protected by the Federal Confidentiality of Alcohol and Drug Abuse Patient Records regulations: The Federal rules restrict any use of the information to criminally investigate or prosecute any alcohol or drug abuse patient.[facility] CenterIn the event this information is protected by the Federal Confidentiality of Alcohol and Drug Abuse Patient Records regulations: The Federal rules restrict any use of the information to criminally investigate or prosecute any alcohol or drug abuse patient.[facility] CenterIn the event this information is protected by the Federal Confidentiality of Alcohol and Drug Abuse Patient Records regulations: The Federal rules restrict any use of the information to criminally investigate or prosecute any alcohol or drug abuse patient.[facility] CenterIn the event this information is protected by the Federal Confidentiality of Alcohol and Drug Abuse Patient Records regulations: The Federal rules restrict any use of the information to criminally investigate or prosecute any alcohol or drug abuse patient.[facility] CenterIn the event this information is protected by the Federal Confidentiality of Alcohol and Drug Abuse Patient Records regulations: The Federal rules restrict any use of the information to criminally investigate or prosecute any alcohol or drug abuse patient.[facility] CenterIn the event this information is protected by the Federal Confidentiality of Alcohol and Drug Abuse Patient Records regulations: The Federal rules restrict any use of the information to criminally investigate or prosecute any alcohol or drug abuse patient.[facility] CenterIn the event this information is protected by the Federal Confidentiality of Alcohol and Drug Abuse Patient Records regulations: The Federal rules restrict any use of the information to criminally investigate or prosecute any alcohol or drug abuse patient.[facility] Reason for Visit (unrecogniz ed section and content) Reason Onset Date Comments PHMA/Care Gap Outreach 11/17/2021 Reason Comments Insurance Authorization Reason Onset Date Comments Transition Of Care 03/04/2022 Reason Comments Medication Problem Reason Onset Date Comments Refill Request 06/07/2022 Reason Comments Urgent value Reason Comments Results Reason Comments Chest Pain Appointment Cancelled Reason Comments Insurance Authorization Florencious Avilamanuel Reason Comments Refill Request Reason Comments Appointment Reason Comments Letter Care Teams (unrecognized sec tion and content) Reservation Manager Relationship Specialty Start Date End Date Deangelo Noel MD [address] [place] [address] PCP - General Family Practice 09/30/18 [facility] [address] [place] [address] Pharmacist Pharmacy 07/14/18 Darren Zarate, [address] [place] [address] Shop Clerk Emergency Medicine 06/04/20 Reservation Manager Relationship Specialty Start Date End Date Deangelo Noel MD [address] [place] [address] PCP - General Family Practice 09/30/18 [facility] [address] [place] [address] Pharmacist Pharmacy 07/14/18 Darren Zarate, [address] [place] [facility] [place] [phone] Shop Clerk Emergency Medicine 06/04/20 Reservation Manager Relationship Specialty Start Date End Date Deangelo Noel MD [address] [place] [address] PCP - General Family Practice 09/30/18 [place] [address] [place] [address] Pharmacist Pharmacy 07/14/18 Darren Zarate, DO [address] [place] [address] Shop Clerk Emergency Medicine 06/04/20 Reservation Manager Relationship Specialty Start Date End Date Deangelo Noel MD [address] [place] [address] PCP - General Family Medicine 09/30/18 [facility] [address] [place] [address] Pharmacist Pharmacy 07/14/18 Darren Zarate DO [address] [place] [address] Shop Clerk Emergency Medicine 06/04/20 Reservation Manager Relationship Specialty Start Date End Date Deangelo Noel MD [address] [place] [address] PCP - General Family Medicine 09/30/18 [facility] [address] [place] [address] Pharmacist Pharmacy 07/14/18 Darren Zarate DO [address] [place] [address] Shop Clerk Emergency Medicine 06/04/20 Reservation Manager Relationship Specialty Start Date End Date Deangelo Noel MD [address] [place] [address] PCP - General Family Medicine 09/30/18 [facility] [address] [place] [address] Pharmacist Pharmacy 07/14/18 Darren Zarate, DO [address] [place] [address] Shop Clerk Emergency Medicine 06/04/20 Reservation Manager Relationship Specialty Start Date End Date Deangelo Noel MD [address] [place] [address] PCP - General Family Medicine 09/30/18 [facility] [address] [place] [address] Pharmacist Pharmacy 07/14/18 Darren Zarate, DO [address] [place] [address] Shop Clerk Emergency Medicine 06/04/20 Reservation Manager Relationship Specialty Start Date End Date Deangelo Noel MD [address] [place] [address] PCP - General Family Medicine 09/30/18 [facility] [address] [place] [address] Pharmacist Pharmacy 07/14/18 Darren Zarate, DO [address] [place] [address] Shop Clerk Emergency Medicine 06/04/20 Reservation Manager Relationship Specialty Start Date End Date Deangelo Noel MD [address] [place] [address] PCP - General Family Medicine 09/30/18 [facility] [address] [place] [address] Pharmacist Pharmacy 07/14/18 Darren Zarate, [address] [place] [phone] Shop Clerk Emergency Medicine 06/04/20 Team Status: Active [...] Dr. Gatito Reed , Emergency Provider Active Reservation Manager Relationship Specialty Start Date End Date Phillip Howe, LEVERS LACE MACHINE OPERATOR.HISTORICAL SOCIETY DIRECTOR [address] [place] [address] PCP - General Family Medicine 09/22/22 09/22/22 [facility] [address] [place] [address] Pharmacist Pharmacy 07/14/18 Darren Zarate, [address] [place] [phone] Shop Clerk Emergency Medicine 06/04/20 Reservation Manager Relationship Specialty Start Date End Date [facility] [address] [place] [address] Pharmacist Pharmacy 07/14/18 Darren Zarate DO [address] [place] [address] Shop Clerk Emergency Medicine 06/04/20 Reservation Manager Relationship Specialty Start Date End Date Fidelina Rogel, [facility] [address] [place] [address] Pharmacist Pharmacy 07/14/18 Darren Zarate DO [address] [place] [address] Shop Clerk Emergency Medicine 06/04/20 Team Status: Inactive Member Role Status Kevin Noel MD Primary Care Provider Active Dr. Gatito Reed DO Attending Provider, Emergency Provide r Active Team Status: Inactive Member Role Status Kevin Noel MD Primary Care Provider Active Dr. Jimmie Palomino MD Emergency Provider Active Team Status: Active Member Role Status Kevin Noel MD Primary Care Provider Active Dr. Robbi Salazar MD Attending Provider Active Team Status: Active Member Role Status Kevin ORELLANA MD Family Provider Active Deangelo ORELLANA MD Primary Care Provider Active Team Status: Active Member Role Status Kevin ORELLANA MD Primary [...] Davidson Lynn DO Attending Provider, Emergency P rocatalina Active [...] Start: February 05, 2025 Dr. Babita Rivera , [...] Provider Active Star t: February 27, 2025 Team Status: Inactive Member Role/Relationship Status Dates No Primary Care Physician Primary Care Provider Active Start: February 27, 2025 End: February 28, 2025 Dr. Arik Boswell MD Emergency Provider Active Sta rt: February 27, 2025 End: February 28, 2025 Dr. Marcelina Erickson MD Admit Provider Active Star t: February 27, 2025 End: February 28, 2025 Dr. Marcelina Erickson MD Other Provider Active Star t: February 27, 2025 End: February 28, 2025 Dr. Berny Nelson MD Attending Provider Active Start: February 27, 2025 End: February 28, 2025 Goals (unrecognized section and content) Goals [...] may be documented in an alternate section No data available for this section FOR RECORDS PERTAINING TO PATIENTS WHO [...] BE BASED ON THE PRIMARY CLINICAL RECORDS. [employer] [facility]. provides no warranty or guarantee of the accuracy or completeness of information in this document.
== END 2025-04-21 14:28 | disposition home or self-care (01) ==
LOC: ED 14:26
PROVIDERS: Emergency Provider Emergency Medicine; Visit Provider Emergency Medicine
DX: M75.22 Bicipital tendinitis, left shoulder (principal); E10.9 Type 1 diabetes mellitus without complications; Z79.4 Long term (current) use of insulin; M75.52 Bursitis of left shoulder; F17.210 Nicotine dependence, cigarettes, uncomplicated; F17.290 Nicotine dependence, other tobacco product, uncomplicated; F17.220 Nicotine dependence, chewing tobacco, uncomplicated
CPT/HCPCS: 73000; 73030; 99283

== ENCOUNTER 2025-05-25 22:37 | Emergency (ER) | payer MEDICAID, SELFPAY ==
[2025-05-25 22:37] VITALS: BP 128/90; PULSE 102; RESP 16; TEMP 36.6; O2SAT 99; BMI 18.7
--- NOTE | 2025-05-25 23:26 | EKG12_ITS ---
Test Reason : DYSRHYTHMIA Blood Pressure : */* mmHG Vent. Rate : 102 BPM Atrial Rate : 102 BPM P-R Int : 164 ms QRS Dur : 82 ms QT Int : 314 ms P-R-T Axes : 59 52 49 degrees QTcB Int : 409 ms Sinus tachycardia Otherwise normal ECG Confirmed by NESTOR MIRELES, ERIC ([id number]), editor trade journal DOMINIC KEENE ([id number]) on 05/28/2025 6:57:31 AM Referred By: Confirmed By: ERIC BAEZ MD
--- OUTSIDE RECORDS SUMMARY | 2025-05-25 23:32 | XMS RPT_ITS | CCD ---
Author Organization [facility] Care Team Providers Care Semiautomatic Taper Operator Name Role Phone LinkLogic Unavailable Ingrid PBX TEACHER, Edwina Bahena Unavailable [employer]Log[employer] Unavailable LinkLogic Unavailable [...] LinkLogic Unavailable Ingrid DIAZ, Edwina J Unavailable [facility] [place] Unavailable Deangelo Noel MD Primary Care Provider Darren Zarate DO Unavailable MD Deangelo Noel Primary Care Provider Dr. Keisha Mcneill Emergency Provider Dr. Deangelo Farah Admit Provider Dr. Deangelo Farah Other Provider RICK Peguero Attending Provider Unavail able [facility] [place] Unavailable Deangelo Noel MD Primary Care Provider Darren Zarate DO Unavailable [facility] [place] Unavailable Deangelo Noel MD Primary Care Provider MD Deangelo Noel Primary Care Provider Dr. Keisha Mcneill Emergency Provider Dr. Deangelo Farah Admit Provider Dr. Deangelo Farah Other Provider RICK Peguero Attending Provider Unavail able [facility] [place] Unavailable Deangelo Noel MD Primary Care Provider Darren Zarate DO Unavailable MD Deangelo Noel Primary Care Provider Dr. Keisha Mcneill Emergency Provider Dr. Isidro Cruz Admit Provider Unavailable Dr. Isidro Cruz Attending Provider Unavailable Dr. Isidro Cruz Other Provider Unavailable Charles CONTRACT LOADER.ANNA, Phillip Primary Care Provider MD Deangelo Mcmillan Primary Care Provider Un available Dr. Keisha Handy Emergency Provider Dr. Isidro Cruz Admit Provider Unavailable Dr. Isidro Cruz Attending Provider Unavailable Anthony, Dr. Ramos Other Provider Unavailable Dr. Robbi Salazar Attending Provider Dr. Robbi Salazar Referring Provider Sadie ORELLANA MD Deangelo Primary Care Provider Un available Dr. Keisha Handy DO Emergency Provider Care Physician, No Primary Primary Care Provider Unavailable Rozina PIERRE, Dr. Valdes Attending Provider [facility], Dr. Harris Referring Provider [facility] Dr. Harris Emergency Provider [facility], Dr. Harris Attending Provider Elbert MIRELES, [...] Provider Dre MIRELES, Dr. Hewitt Admit Provider Dr. Marcelina Erickson MD Attending Provider Dr. Marcelina Erickson MD Other Provider Omar MIRELES, Dr. Berny Alexandra Attending Provider PHYSICIAN, NONE Primary Care Physician Unavailab le PHYSICIAN, NONE Primary Care Unavailable ROSE PIERRE, DR LIZ Bahena Attending Unavailable Care Physician, No Primary Primary Care Provider Unavailable Elbert MIRELES, Dr. Elise Emergency Provider Omar MIRELES, Dr. Berny Alexandra Other Provider [phone] Care Physician, No Primary Primary Care Unava ilable White, Sarah L Admitting Unavailable White, Sarah L Consulting Unavailable White, Sarah L Attending Unavailable Care Physician, No Primary Primary Care Unava ilable Erickson, Marcelina Admitting Unavailable Erickson, Marcelina Consulting Unavailable Erickson, Marcelina Attending Unavailable Care Physician, No Primary Primary Care Unava ilable Keisha Handy Attending Unavailable Arik Boswell Attending Unavailable Care Physician, No Primary Primary Care Unava ilable Care Physician, No Primary Primary Care Unava ilable Berny Nelson Attending Unavailable Erickson, Marcelina Admitting Unavailable Erickson, Marcelina Consulting Unavailable Steven Donaldson Attending Unavailabl e KlSteven Watt Referring Unavailabl e Care Physician, No Primary Primary Care Unava ilable Berny Nelson Attending Unavailable Berny Nelson Consulting Unavailable Care Physician, No Primary Primary Care Unava ilable Keisha Handy Attending Unavailable Care Physician, No Primary Primary Care Unava ilable Alo Zambrano Attending Unavailable White, Sarah L Admitting Unavailable White, Sarah L Consulting Unavailable Juan Rivas Attending Unavailable Care Physician, No Primary Primary Care Unava ilable Arik Boswell Attending Unavailable Care Physician, No Primary Primary Care Unava ilable Beam Kristy VALENCIA Attending Unavailable Care Physician, No Primary Primary Care Unava ilable Allergies Allergy Classification Reported Allergen(s) Allergy Type Date of Onset Reaction(s) Facility (1 source) Wheat bran; Translations: [WHEAT BRAN] Propensity to adverse reactions to drug (disorder) 8 [facility]OF [facility] Repository (1 source) GLUTEN MEAL; Translations: [GLUTEN MEAL] Propensity to adverse reactions to drug (disorder) 8 [facility] Repository (20 sources) Gluten; Translations: [GLUTEN] Propensity to adverse reactions to drug (disorder) 8 Diarrhea [facility] Repository (12 sources) Wheat preparation Drug Allergy Nausea [facility] Medications Current Medications Medication Drug Class(es) Dates Sig (Normalized) Sig (Original) acetaminophen 325 mg / HYDROcodone bitartrate 5 mg oral tablet (1 source) Opioid Agonist Start: 04-21-2025 take 1 tablet by mouth every six hours as needed for pain Hydrocodone-Acetamin ophen 5-325 mg tablet Active 1 {tbl} PO EVERY 6 HOURS NEEDED as needed for Pain 6 2 0 April 21, 2025 Bicipital tendinitis of left shoulder Type 1 diabetes mellitus Bicipital tendinitis, left shoulder Type 1 diabetes mellitus without complications cyclobenzaprine hydrochloride 10 mg oral tablet (4 sources) Muscle Relaxant Start: 01-31-2022 take 10 mg by mouth twice daily Cyclobenzaprine Active 10 MG PO TWICE A DAY January 30, 2022 11:00pm doxycycline monohydrate 100 mg oral capsule (1 source) Tetracycline-clas s Drug Start: 01-19-2022 take 100 mg by mouth twice daily Doxycycline Monohydrate Active 100 MG PO TWICE A DAY January 19, 2022 12:00am Insulin Glargine (Insulin Glargine 100 Unit/Ml Subcutaneous Solution) 100 unit/mL solution (2 sources) Start: 10-19-2024 Insulin Glargine (Insulin Glargine 100 Unit/Ml Subcutaneous Solution) 100 unit/mL solution Active 35 U SC AT BEDTIME October 19, 2024 12:00am naproxen 500 mg oral tablet (8 sources) Nonsteroidal Anti-inflammatory Drug Start: 04-21-2025 take 1 tablet by mouth twice daily Naproxen 500 mg tablet Active 500 mg PO TWICE A DAY April 21, 2025 12:00am Start: 12-12-2024 End: 12-14-2024 take 1 tablet by mouth twice daily Naproxen 500 mg tablet Discontinued 500 mg PO TWICE A DAY 10 December 12, 2024 12:00am December 14, 2024 2:13am ondansetron 8 mg disintegrating oral tablet (20 sources) Serotonin-3 Receptor Antagonist Start: 12-14-2024 take 1 tablet by mouth every eight hours as needed for nausea and vomiting Ondansetron 8 mg tablet,disintegrating Active 8 mg PO Q8H as needed [...] 12:00am January 28, 2017 9:55am to finish 6 pm Blood-Glucose Meter (Freestyle Lite Meter) kit [...] mg PO THREE TIMES A DAY 30 0 March 08, 2021 12:00am January 19, [...] with breakfast. gabapentin 300 mg oral capsule (16 sources) Anti-epileptic Agent Start: 3 End: take 1 capsule by mouth at bedtime Gabapentin 300 mg capsule Discontinued 300 mg PO AT BEDTIME 14 0 August 24, 2022 1:00am October 19, 2024 [...] Discontinued 30 U SC AT BEDTIME 1 August 13, 2017 10:35am December 22, 2017 [...] SOPN Use 30 units daily. INSULIN GLARGINE [id number] Edwina Quintero NP Start: 11-16-2016 BASAGLAR KWIKP EN 100 UNIT/ML SOPN Use 30 units daily. INSULIN GLARGINE [id number] Edwina Quintero NP Start: 10-19-2016 End: 01-20-2017 [...] SOPN Use 30 units daily. INSULIN GLARGINE [id number] Edwnia Quintero NP Comment on above: Inject 40 Units subc utaneously every morning. Insulin Glargine (Lantus U-100 Insulin) 100 unit/mL Cartridge (20 sources) Start: 2022 End: 03-03-2022 Insulin Glargine [...] (Lantus U-1 00 Insulin) 100 unit/mL solution (7 sources) Start: 10-19-2024 End: 02-28-2025 Insulin Glargine [...] up to 60 units daily INSULIN LISPRO [id number] Edwina Quintero NP Start: 12-08-2016 End: 05-17-2017 [...] 10 units with every meal. INSULIN LISPRO [id number] Edwina Quintero NP Start: 11-09-2016 HUMALOG KWIKPE N 100 UNIT/ML SOPN Use 10 units with every meal. INSULIN LISPRO [id number] Edwina Quintero NP Start: 10-19-2016 End: 12-08-2016 [...] Use with insulin pens. INSULIN PEN NEEDLE [id number] Edwina Quintero NP isopropyl alcohol 0.7 ml/ml [...] Comment on above: Use 4 times daily Nut.Tx.Gluc Intol,Lf,Soy-Fiber (Glucerna 1.2 Lars) 120 ML Liquid (20 sources) Start: 01-20-2017 End: 01-28-2017 take 1 mL [...] pantoprazole 40 mg delayed release oral tablet (20 sources) Proton Pump Inhibitor Start: 08-20-2022 End: 10-19-2024 take 1 tablet by mouth once daily Pantoprazole (Protonix) 40 mg tablet,delayed release (DR/EC) Discontinued 40 mg PO DAILY 60 0 August 20, 2022 1:00am October 19, 2024 3:37am Comment on above: DAILY microencapsulated potassium chloride 20 meq extended release oral tablet (20 sources) Start: 08-20-2022 End: 10-19-2024 Potassium Chloride [...] Translations: [Anemia, unspecified] 01-17-2019 Episodic Developmental disorders (19 sources) Learning difficulties; Translations: [Developmental disorder of [...] Hematemesis - cause unknown; Translations: [Hematemesis] Episodic Other connective tissue disease (7 sources) Rotator cuff impingement syndrome; Translations: [Impingement syndrome of left shoulder] 12-12-2024 Episodic Other connective tissue disease (1 source) Biceps tendinitis; Translations: [Bicipital tendinitis, left shoulder] 04-21-2025 Episodic Other connective tissue disease (1 source) Bursitis of left shoulder; Translations: [Bursitis of left shoulder] 04-21-2025 Episodic Other fractures (1 source) Compression fracture [...] encounter] 01-27-2022 Episodic Other nervous system disorders (16 sources) Neuropathy; Translations: [Polyneuropathy, unspecified] 08-24-2022 Chronic Other non-traumatic joint disorders (1 source) Pain in left shoulder; Translations: [Pain in left shoulder] Onset: 04-23-2025 Episodic Other nutritional; endocrine; and metabolic disorders (20 sources) Hyperphosphatemia; Translations: [Other disorders of phosphorus [...] chemistry] Onset: 10-10-2024 Episodic Residual codes; unclassified (20 sources) Tobacco [...] Unclassified (1 source) APPOINTMENT CANCELLED Viral infection (17 sources) Disease caused by 2019-nCoV; Translations: [COVID-19] [...] consciousness, initial encounter] Onset: 03-20-2018 03-23-2018 Episodic Nausea and vomiting (20 sources) Vomiting; [...] Test Name Value Interpretation Reference Range [facility] [address] [place] [address] [id number] Clavicle MR#: [id number] Acct: [id number] Name: UNA COSBY Rep #: [id number] : 1995 M 30 From: Doyle Kimble MD PCP: Care Physician,No Primary Status: PRE ER Study: Clavicle Date of Exam: 04/21/25 Exam# [id number] Ordering Dr: Arik Boswell MD PROCEDURE: SHOULDER MIN 2 VIEWS; CLAVICLE N/A REASON FOR EXAM: INJURY; INJURY LEFT Clavicle and shoulder pain. TECHNIQUE: Procedure Code: RADSH; RADCL Modality: DX Procedure: SHOULDER MIN 2 VIEWS; CLAVICLE Laterality: Left COMPARISON: None FINDINGS: Four views of the left shoulder. Two views of the left clavicle. Bones: Negative for fractures. Scapula negative. Proximal humerus negative. Clavicle negative. Joints: Slight degenerative changes in the AC joint. Intact. No joint effusion. Soft tissues: Adjacent structures negative. Other: Remainder of the exam negative. RAD/Clavicle IMPRESSION: Negative for acute abnormality of the left shoulder or left clavicle. Reading Location: [id number] CC: Dr. Arik Boswell MD; No Primary Care Physician Insulator Cutter And Former: Signed Normal [facility] Emergency Department Summary on 04-21-2025 Emergency Department Summary [facility] Medical Records Department [address] [place] [id number] Emergency Department Summary 04/21/25 MR#: [id number] Acct: [id number] Name: UNA COSBY Rep #: [id number] : 1995 30 From: Arik Boswell MD PCP: Care Physician,No Primary Status:PRE ER Location: ED HPI History of Present Illness Chief Complaint: Upper Extremity Injury Detail of Chief Complaint: Left shoulder pain Informant: patient Occured/Mechanism Comment: There is no history of direct trauma. Onset/Context/Timing Onset: Weeks Context: Sudden Onset Timing: Continuous and Waxes and wanes Current Severity: Mild Maximum Severity: Moderate Worsened by: Certain movements Relieved by: Nothing Associated Symptoms Associated Symptoms: Negative for Parasthesia, Weakness or Loss of Funtion Narrative Narrative: Patient is a 30-year-old aueas-bfmu-rmfcdxrc male with type 1 diabetes. He has no history of kidney disease. He states his prescription for NSAID has no refills. He took one of his dad's ibuprofen tablets. He denies fever, chills night sweats. He denies paresthesia, anesthesia or motor weakness. He denies cardiac or respiratory symptoms. There is no history of direct trauma. He has no history of peptic ulcer disease, or known kidney disease. He does have diabetes. Prior similar symptoms: No Recent Illness/Hospitalization : No PFSH PFSH Medical History Anxiety Depression Smoker Asthma Hypertension Chronic anemia Learning difficulty due to cognitive limitations Noncompliance with medication regimen H/O fracture of skull Anxiety and depression Type I diabetes mellitus, uncontrolled Tobacco use Home Medications ???Medication ???Instructions ???Recorded ???Last Taken ???Type insulin lispro 100 unit/mL See Rx Instructions SQ TIDCM short 03/05/21 03/04/21 History subcutaneous pen acting insulin insulin glargine 100 unit/mL (3 30 unit subcut QPM diabetes Unknown History mL) subcutaneous pen (Lantus Solostar U-100 Insulin) insulin syringe-needle U-100 0.5 10/19/24 Unknown History mL 31 gauge x 5/16 (TRUEplus Insulin) ondansetron 8 mg disintegrating 8 mg PO Q8H PRN nausea and 5 Unknown Rx tablet vomiting #12 tabs hydrocodone-acetaminoph en 5-325mg 1 tab PO Q6H PRN PRN Pain 2 days 04/21/25 Unknown Rx 5mg-325mg #6 TABLETS naproxen 500 mg tablet 500 mg PO BID #14 tabs 04/21/25 Un known Rx Allergy/AdvReac Type Severity Reaction Status Date / Time No Known Allergies Allergy Verified 04/21/25 13:31 Family History Father Diabetes Mother , Age [...] or sweats Cardiovascular Cardiovascular: Denies chest pain or palpitations Respiratory/Chest Respiratory/Chest: Denies cough, dyspnea or dyspnea on exertion Gastrointestinal Gastrointestinal: Denies melena Musculoskeletal Musculoskeletal: Reports other Details: Left shoulder pain/left clavicle pain. ; Denies back pain, myalgias or neck pain Integumentary Denies rash Neurologic Neurologic: Denies paresthesias or weakness Hematologic/Lymphatic Hematologic/Lymphatic: Denies easy bleeding or easy bruising EXAM Physical Exam Const Vital Signs: 04/21/25 13:29 Temperature 98.3 F Temperature Source Oral Pulse Rate 80 Respiratory Rate 16 Blood Pressure 120/70 Blood Pressure Mean 86 Pulse Ox 98 Oxygen Delivery Method Room Air Positive well nourished, well developed and unkempt General Appearance ED: unkempt, well developed and NAD HEENT Reports moist mucous membranes normocephalic and atraumatic Eyes PERRL and EOMs intact bilaterally Resp normal respiratory effort Cardio regular rate and regular rhythm Extremity normal to inspection; Negative for full ROM Extremity Narrative: Axillary, median, radial and ulnar function intact. There is pain palpation over the AC joint. This is minimal. There is also pain ovation of the bicipital groove. There is increased pain with abduction past 90 degrees. There is no pain palpation over the lateral medial epicondyle, olecranon process or radial head. Radial pulses palpable. There is minimal discomfort posterior left shoulder. There ar (more content not included)... Normal [facility] Shoulder min 2 Viewson 04-21 Shoulder min [address] [facility] Imaging Services [address] [place] [address] Shoulder min 2 Views MR#: [id number] Acct: [id number] Name: UNA COSBY Rep #: [id number] : 1995 M 30 From: Doyle Kimble MD PCP: Care Physician,No Primary Status: PRE ER Study: Shoulder min 2 Views Date of Exam: 04/21/25 Exam# [id number] Ordering Dr: Arik Boswell MD PROCEDURE: SHOULDER MIN 2 VIEWS; CLAVICLE N/A REASON FOR EXAM: INJURY; INJURY LEFT Clavicle and shoulder pain. TECHNIQUE: Procedure Code: RADSH; RADCL Modality: DX Procedure: SHOULDER MIN 2 VIEWS; CLAVICLE Laterality: Left COMPARISON: None FINDINGS: Four views of the left shoulder. Two views of the left clavicle. Bones: Negative for fractures. Scapula negative. Proximal humerus negative. Clavicle negative. Joints: Slight degenerative changes in the AC joint. Intact. No joint effusion. Soft tissues: Adjacent structures negative. Other: Remainder of the exam negative. RAD/Shoulder min 2 Views IMPRESSION: Negative for acute abnormality of the left shoulder or left clavicle. Reading Location: [id number] CC: Dr. Arik Boswell MD; No Primary Care Physician Insulator Cutter And Former: Signed Normal [facility] CNCOon 03-27-2025 CNCO Letter Text Normal [facility] .Auto Diffon 03-04-2025 Basophil, Absolute 0.2 10 3/mcL Normal 0.0-0.3 [facility] Comment on above: Performed By: #### B MP, TROPHS, GFR, CBC, ANEU, MG, ADIFFKIMO #### [address] [address] Basophils/100 WBC (Bld) 1.3 % Normal 0.0-2.5 [facility] Comment on above: Performed By: #### B MP, TROPHS, GFR, CBC, ANEU, MG, ADIFFKIMO #### [address] [address] Eosinophil, Absolute 0.4 10 3/mcL Normal 0.0-0.[address] [facility] Comment on above: Performed By: #### B MP, TROPHS, GFR, CBC, ANEU, MG, ADIFFKIMO #### [address] [address] Eosinophils/100 WBC (Bld) 3.6 % Normal 0.0-6.[address] [facility] Comment on above: Performed By: #### B MP, TROPHS, GFR, CBC, ANEU, MG, ADKIMO STEVENS #### [address] [address] Lymphocyte, Absolute 3.4 10 3/mcL Normal 0.9-4.[address] [facility] Comment on above: Performed By: #### B MP, TROPHS, GFR, CBC, ANEU, MG, ADIFFKIMO #### [address] [address] Lymphocytes/100 WBC (Bld) 28.4 % Normal 20.0-40.[address] [facility] Comment on above: Performed By: #### B MP, TROPHS, GFR, CBC, ANEU, MG, ADIFF, KIMO #### [address] [address] Monocyte, Absolute 1.0 10 3/mcL Normal 0.1-1.4 [facility] Comment on above: Performed By: #### B MP, TROPHS, GFR, CBC, ANEU, MG, ADIFF, KIMO #### [address] [address] Monocytes/100 WBC (Bld) 8.4 % Normal 2.0-13.0 [facility] Comment on above: Performed By: #### B MP, TROPHS, GFR, CBC, ANEU, MG, ADIFFKIMO #### [address] [address] Neutrophils/100 WBC (Bld) 58.3 % Normal 50.0-75.[address] [facility] Comment on above: Performed By: #### B MP, TROPHS, GFR, CBC, ANEU, MG, ADIFFKIMO #### [address] [address] .GFRon 03-04-2025 GFR/1.73 sq M.predicted among non-blacks MDRD (S/P/Bld) [Vol rate/Area] mL/min/{1.73_m2} Normal [facility] Comment on above: Result Comment: Stages [...] GFR, CBC, ANEU, MG, ADIFF, KIMO #### [address] [address] .MDWon 03-04-2025 Monocyte Distribution Width 19.16 Normal 0.00-20.[address] [facility] Comment on above: Result Comment: For ED adult patients suspected of sepsis, MDW<=20.0 does not rule out sepsis or risk of sepsis Performed By: #### B MP, TROPHS, GFR, CBC, ANEU, MG, ADIFF, KIMO #### [address] [address] .NEUABSon 03-04-2025 Neutrophil, Absolute 6.9 10 3/mcL Normal 2.3-8.[address] [facility] Comment on above: Performed By: #### B MP, TROPHS, GFR, CBC, ANEU, MG, ADIFFKIMO #### [address] [address] BMPon 03-04-2025 BUN/Creatinine Ratio 26 ratio Normal 7-27 [facility] Comment on above: Performed By: #### B MP, TROPHS, GFR, CBC, ANEU, MG, ADIFF, KIMO #### [address] [address] Calcium [Mass/Vol] 8.4 mg/dL Normal 8.4-10.2 [facility] Comment on above: Performed By: #### B MP, TROPHS, GFR, CBC, ANEU, MG, ADIFF, KIMO #### [address] [address] Chloride [Moles/Vol] 98 mmol/L Normal 98-107 [facility] Comment on above: Performed By: #### B MP, TROPHS, GFR, CBC, ANEU, MG, ADIFF, KIMO #### [address] [address] CO2 [Moles/Vol] 24 mmol/L Normal 22-[address] [facility] Comment on above: Performed By: #### B MP, TROPHS, GFR, CBC, ANEU, MG, ADIFF, KIMO #### [address] [address] Creatinine [Mass/Vol] 0.50 mg/dL Low 0.67-1.17 [facility] Comment on above: Performed By: #### B MP, TROPHS, GFR, CBC, ANEU, MG, ADKIMO STEVENS #### [address] [address] Electrolyte Balance 12.0 mEq/L Normal 4.0-15.0 [facility] Comment on above: Performed By: #### B MP, TROPHS, GFR, CBC, ANEU, MG, ADKIMO STEVENS #### [address] [address] Glucose [Mass/Vol] 288 mg/dL High 70-105 [facility] Comment on above: Performed By: #### B MP, TROPHS, GFR, CBC, ANEU, MG, ADIFFKIMO #### [address] [address] Potassium [Moles/Vol] 4.2 mmol/L Normal 3.5-5.1 [facility] Comment on above: Performed By: #### B MP, TROPHS, GFR, CBC, ANEU, MG, ADKIMO STEVENS #### [address] [address] Sodium [Moles/Vol] 134 mmol/L Low 136-145 [facility] Comment on above: Performed By: #### B MP, TROPHS, GFR, CBC, ANEU, MG, ADKIMO STEVENS #### [address] [address] Urea nitrogen [Mass/Vol] 13 mg/dL Normal 7-[address] [facility] Comment on above: Performed By: #### B MP, TROPHS, GFR, CBC, ANEU, MG, ADKIMO STEVENS #### [address] [address] CBCon 03-04-2025 Erythrocyte distribution width (RBC) [Ratio] 18.0 % High 11.5-15.[address] [facility] Comment on above: Performed By: #### B MP, TROPHS, GFR, CBC, ANEU, MG, ADIFF, MDW #### [address] [address] Hematocrit (Bld) [Volume fraction] 37.1 % Low 40.0-52.[address] [facility] Comment on above: Performed By: #### B MP, TROPHS, GFR, CBC, ANEU, MG, ADIFF, MDW #### [address] [address] Hgb 12.0 G/dL Low 13.0-17.[address] [facility] Comment on above: Performed By: #### B MP, TROPHS, GFR, CBC, ANEU, MG, ADIFF, MDW #### [address] [address] MCH (RBC) [Entitic mass] 24.9 pg Low 27.0-33.[address] [facility] Comment on above: Performed By: #### B MP, TROPHS, GFR, CBC, ANEU, MG, ADIFF, MDW #### [address] [address] MCHC 32.4 G/dL Normal 32.0-36.[address] [facility] Comment on above: Performed By: #### B MP, TROPHS, GFR, CBC, ANEU, MG, ADIFF, MDW #### [address] [address] MCV (RBC) [Entitic vol] 76.8 fL Low 81.0-100.0 [facility] Comment on above: Performed By: #### B MP, TROPHS, GFR, CBC, ANEU, MG, ADIFF, MDW #### [address] [address] Platelet 306 10 3/mcL Normal 150-[address] [facility] Comment on above: Performed By: #### B MP, TROPHS, GFR, CBC, ANEU, MG, ADIFF, MDW #### [address] [address] Platelet mean volume (Bld) [Entitic vol] 8.7 fL Normal 6.4-10.[address] [facility] Comment on above: Performed By: #### B MP, TROPHS, GFR, CBC, ANEU, MG, KIMO CARL #### [address] [address] RBC 4.82 10 6/mcL Normal 4.50-6.[address] [facility] Comment on above: Performed By: #### B MP, TROPHS, GFR, CBC, ANEU, MG, ADKIMO STEVENS #### [address] [address] WBC 11.8 10 3/mcL High 4.5-10.[address] [facility] Comment on above: Performed By: #### B MP, TROPHS, GFR, CBC, ANEU, MG, ADKIMO STEVENS #### [address] [address] LABORATORYOrdered By: SYSTEM SYSTEM on 03-04-2025 Basophils [...] ng/L Male: 0-76 ng/L Testing performed on [employer] using a homogeneous sandwich chemiluminescent immunoassay based on [employer] technology. Urea nitrogen [Mass/Vol] 13 mg/dL Normal 7 - 18 mg/dL AO ADM SS Urea nitrogen/Creatinine [Mass ratio] 26 ratio Normal 7 - 27 ratio AO ADM SS WBC (Bld) [#/Vol] 11.8 103/mcL High 4.5 - 10.8 10^3/mcL AO Workflow SS MGon 03-04-2025 Magnesium [Mass/Vol] 1.9 mg/dL Normal 1.8-2.4 [facility] Comment on above: Performed By: #### B DENIZ, TROPHS, GFR, CBC, ANEU, MGSIDDHARTHA MDW #### [address] [place], [place] [address] TROPHSon 03-04-2025 High Sensitivity Troponin I 4 ng/L Normal 0-[address] [facility] Comment on above: Result Comment: High Sensitive Troponin I Reference Ranges: Female: 0-51 ng/L Male: 0-76 ng/L Testing performed on EGEN EXL using a homogeneous sandwich chemiluminescent immunoassay based on [employer] technology. Performed By: #### B MP, TROPHS, GFR, CBC, ANEU, MGSIDDHARTHA MDW #### [id number] [place], [place] [address] Absolute lymphocyte countOrd ered By: Marcelina Erickson on 02-28-2025 Lymphocytes Auto (Unsp spec) [#/Vol] 5.35 10*3/uL High 0.83-4.51 [facility] Absolute neutrophil countOrd ered By: Marcelina Erickson on 02-28-2025 Neutrophils (Bld) [#/Vol] 7.1 10*3/uL 2.0-7.7 [facility] Anion gap in Serum or Plasma Ordered By: Marcelina Erickson on 02-28-2025 Anion gap [Moles/Vol] 13 mmol/L 5- [facility] Automated lymphocyte count a s percentage of total leukocytesOrdered By: Marcelina Erickson on 02-28-2025 Lymphocytes/100 WBC Auto (Unsp spec) 37.5 % 19-41 [facility] BUN/creatinine ratioOrdered By: Marcelina Erickson on 02-28-2025 Urea nitrogen/Creatinine [Mass ratio] 17.1 mg/mg 10- [facility] Basic Metabolic Profile (BMP )on 02-28-2025 BUN Normal 4-19 [facility] Comment on above: Result Comment: Canc elled via OM: off insulin gtt Performed By: #### L 501.6901 #### [facility] [address] [place], [address] BUN/CRE Normal 10- [facility] Comment on above: Result Comment: Canc elled via OM: off insulin gtt Performed By: #### L 501.6901 #### [facility] [address] [place], [address] Calcium Normal 7.6-11.0 [facility] Comment on above: Result Comment: Canc elled via OM: off insulin gtt Performed By: #### L 501.6901 #### [facility] [address] [place], [address] CL Normal 98-108 [facility] Comment on above: Result Comment: Canc elled via OM: off insulin gtt Performed By: #### L 501.6901 #### [facility] [address] [place], [address] CO2 Normal 21.0-32.0 [facility] Comment on above: Result Comment: Canc elled via OM: off insulin gtt Performed By: #### L 501.6901 #### [facility] [address] [place], [address] CREAT,SERUM Normal 0.70-1.20 [facility] Comment on above: Result Comment: Canc elled via OM: off insulin gtt Performed By: #### L 501.6901 #### [facility] [address] [place], [address] eGFR Normal >60 [facility] Comment on above: Result Comment: Canc elled via OM: off insulin gtt Performed By: #### L 501.6901 #### [facility] [address] [place], [address] GAP Normal 5-15 [facility] Comment on above: Result Comment: Canc elled via OM: off insulin gtt Performed By: #### L 501.6901 #### [facility] [address] [place], [address] GLU Normal 70-99 [facility] Comment on above: Result Comment: Canc elled via OM: off insulin gtt Performed By: #### L 501.6901 #### [facility] [address] [place], [address] Potassium Normal 3.3-5.1 [facility] Comment on above: Result Comment: Canc elled via OM: off insulin gtt Performed By: #### L 501.6901 #### [facility] [address] [place], [address] Basic Metabolic Profile (BMP) Normal 133-145 [facility] Comment on above: Result Comment: Canc elled via OM: off insulin gtt Performed By: #### L 501.6901 #### [facility] [address] [place], [address] BUN/CRE 17.1 RATIO Normal 10-20 [facility] Comment on above: Performed By: #### L 501.5200, L500.2500, L100.0100 ####[facility] [address] [place], [address] Calcium [Mass/Vol] 8.2 mg/dL Normal 7.6-11.0 [facility] Comment on above: Performed By: #### L 501.5200, L500.2500, L100.0100 ####[facility] [address] [place], [address] Chloride [Moles/Vol] 105 mmol/L Normal 98-108 [place] Comment on above: Performed By: #### L 501.5200, L500.2500, L100.0100 ####[facility] [address] [place], [address] CO2 [Moles/Vol] 21.5 mmol/L Normal 21.0-32.0 [facility] Comment on above: Performed By: #### L 501.5200, L500.2500, L100.0100 ####[facility] [address] [place], [address] Creatinine [Mass/Vol] 0.44 mg/dL Low 0.70-1.20 [facility] Comment on above: Performed By: #### L 501.5200, L500.2500, L100.0100 ####[facility] [address] [place], [address] ECRCL 209.73 ml/min Normal 50-250 [facility] Comment on above: Performed By: #### L 501.5200, L500.2500, L100.0100 ####[facility] [address] [place], [address] GAP 13 Normal 5-15 [facility] Comment on above: Performed By: #### L 501.5200, L500.2500, L100.0100 ####[facility] [address] [place], [address] GFR/1.73 sq M.predicted among non-blacks MDRD (S/P/Bld) [Vol rate/Area] 149 mL/min/{1.73_m2} Normal >60 [facility] Comment on above: Result Comment: mL/m in/1.73m2 CKD-EPI Creatinine Equation (2020) Performed By: #### L 501.5200, L500.2500, L100.0100 ####[facility] [address] [place], [address] Glucose [Mass/Vol] 131 mg/dL High 70-99 [facility] Comment on above: Performed By: #### L 501.5200, L500.2500, L100.0100 ####[facility] [address] [place], [address] Potassium [Moles/Vol] 3.8 mmol/L Normal 3.3-5.1 [facility] Comment on above: Performed By: #### L 501.5200, L500.2500, L100.0100 ####[facility] [address] [place], [address] Sodium [Moles/Vol] 139 mmol/L Normal 133-145 [facility] Comment on above: Performed By: #### L 501.5200, L500.2500, L100.0100 ####[facility] [address] [place], [address] Urea nitrogen [Mass/Vol] 8 mg/dL Normal 4-19 [facility] Comment on above: Performed By: #### L 501.5200, L500.2500, L100.0100 ####[facility] [address] [place], [place], [address] Basophil percentageOrdered B y: Marcelina Erickson on 02-28-2025 Basophils/100 WBC (Bld) 0.5 % 0-1 [facility] Bedside Glucoseon 02-28-2025 FINGERSTICK GLU 136 mg/dL High 74-106 [facility] Comment on above: Result Comment: TEJAL MATTA OF PATIENT CARE PER NURSING PROTOCOL Performed By: #### L 501.6901 #### [facility] [address] [place], [address] Blood manual differential co mment interpretation (narrative result)Ordered By: Marcelina Erickson on 02-28-2025 Manual differential comment Gigi (Bld) [Interp] SCANNED [facility] CBC W/Diff, Automatedon 02-07 SMEAR COMMENT SCANNED Normal [facility] Comment on above: Performed By: #### L 501.5200, L500.2500, L100.0100 ####[facility] [address] [place], [address] Carbon dioxide, total [Moles /volume] in Central venous bloodOrdered By: Marcelina Erickson on 02-28-2025 CO2 [Moles/Vol] 21.5 mmol/L 21.0-32.0 [facility] Chloride assayOrdered By: Zain Erickson on 02-28-2025 Chloride [Moles/Vol] 105 mmol/L 98-108 [place] Discharge Instructionon 02-07 Discharge Instruction [facility] Medical Records Department [address] [place] [address] Instructions for Home/Discharge Instructions 02/28/25 0853 MR#: [id number] Acct: [id number] Name: UNA COSBY Rep #: [id number] : 1995 29 From: Berny Nelson MD [...] MD; No Primary Care Physician Signed Normal [facility] Eosinophil percentageOrdered By: Marcelina Erickson on 02-28-2025 Eosinophils/100 WBC (Bld) 4.8 % 0-5 [facility] Erythrocyte distribution wid th ratioOrdered By: Marcelina Erickson on 02-28-2025 Erythrocyte distribution width (RBC) [Ratio] 17.2 % High 11.6-14.6 [facility] Erythrocyte distribution wid th standard deviationOrdered By: Marcelina Erickson on 02-28-2025 Erythrocyte distribution width (RBC) [Ratio] 47.5 fl High 35.1-43.9 [facility] Glomerular filtration rate ( GFR) estimation/1.73 sq m using serum, plasma, or whole bOrdered By: Marcelina Erickson on 02-28-2025 GFR/1.73 sq M.predicted among non-blacks MDRD (S/P/Bld) [Vol rate/Area] 149 mL/min/{1.73_m2} >60 [facility] Comment on above: mL/min/1.73m2 CKD-EP I Creatinine Equation (2020) [facility]dered By: Berny Nelson on 02-28-2025 Glucose [Mass/Vol] 136 mg/dL High 74-106 [facility] Comment on above: MANAGEMENT OF PATIEN T CARE PER NURSING PROTOCOL Hematocrit Auto (Bld) [Volum e fraction]Ordered By: Marcelina Erickson on 02-28-2025 Hematocrit (Bld) [Volume fraction] 37.2 % Low 40-54 [facility] Hemoglobin measurementOrdere d By: Marcelina Erickson on 02-28-2025 Hemoglobin (Bld) [Mass/Vol] 11.9 g/dL Low 13.0-16.5 [facility] Immature granulocytes/100 WB C Auto (Bld)Ordered By: Marcelina Erickson on 02-28-2025 Immature granulocytes/100 WBC (Bld) 0.400 % 0.0-0.9 [facility] Comment on above: IG% - Immature Granu locytes (promyelocytes, myelocytes and metamyelocytes) > 1% indicates that a LEFT SHIFT is Present. MCV (mean corpuscular volume ) determinationOrdered By: Marcelina Erickson on 02-28-2025 MCV (RBC) [Entitic vol] 76.7 fL Low 80-94 [facility] Comment on above: Delta: 81.2 on 02/27-1326 Magnesiumon 02-28-2025 Magnesium [Mass/Vol] 1.9 mg/dL Normal 1.5-2.2 [place] Comment on above: Performed By: #### L 501.5200, L500.2500, L100.0100 ####[facility] [address] [place], [address] Magnesium measurement (mass/ volume)Ordered By: Marcelina Erickson on 02-28-2025 Magnesium (Unsp spec) [Mass/Vol] 1.9 mg/dL 1.5-2.2 [facility] Mean corpuscular hemoglobin (MCH) determinationOrdered By: Marcelina Erickson on 02-28-2025 MCH (RBC) [Entitic mass] 24.5 pg Low 27.0-32.0 [facility] Mean corpuscular hemoglobin concentration (MCHC) determinationOrdered By: Marcelina Erickson on 02-28-2025 MCHC (RBC) [Mass/Vol] 32.0 g/dL 32-36 [facility] Comment on above: Delta: 29.9 on 02/27-1325 Mean platelet volume determi nationOrdered By: Marcelina Erickson on 02-28-2025 Platelet mean volume (Bld) [Entitic vol] 10.8 fL 6.2-12.0 [facility] Monocyte percentageOrdered B y: Marcelina Erickson on 02-28-2025 Monocytes/100 WBC (Bld) 7.5 % 0-10 [facility] [place] Neutrophil percentageOrdered By: Marcelina Erickson on 02-28-2025 Neutrophils/100 WBC (Bld) 49.3 % 47-70 [facility] Nucleated red blood cell per centageOrdered By: Marcelina Erickson on 02-28-2025 Nucleated RBC/100 WBC (Bld) [Ratio] 0 % 0-5 [facility] Platelet countOrdered By: Zain Erickson on 02-28-2025 Platelets (Bld) [#/Vol] 293 10*3/uL 150-450 [facility] Potassium measurement (mass/ volume)Ordered By: Marcelina Erickson on 02-28-2025 Potassium (Unsp spec) [Mass/Vol] 3.8 mmol/L 3.3-5.1 [facility] RBC Auto (Bld) [#/Vol]Ordere d By: Marcelina Erickson on 02-28-2025 RBC (Bld) [#/Vol] 4.85 10*6/uL 4.6-6.2 [facility] Serum creatinine measurement (mass/volume)Ordered By: Marcelina Erickson on 02-28-2025 Creatinine [Mass/Vol] 0.44 mg/dL Low 0.70-1.20 [facility] Serum glucose measurement (m ass/volume)Ordered By: Marcelina Erickson on 02-28-2025 Glucose [Mass/Vol] 131 mg/dL High 70-99 [facility] Serum or plasma calcium koby urement (mass/volume)Ordered By: Marcelina Erickson on 02-28-2025 Calcium [Mass/Vol] 8.2 mg/dL 7.6-11.0 [facility] Serum or plasma urea nitroge n measurement (mass/volume)Ordered By: Marcelina Erickson on 02-28-2025 Urea nitrogen [Mass/Vol] 8 mg/dL 4-19 [facility] Sodium levelOrdered By: Sukhjinder Erickson on 02-28-2025 Sodium [Moles/Vol] 139 mmol/L 133-145 [facility] White blood cell (WBC) count Ordered By: Marcelina Erickson on 02-28-2025 WBC (Bld) [#/Vol] 14.3 10*3/uL High 4.4-11.0 [facility] 12 Lead EKGon 02-27-2025 [address] [facility] Cardiovascular Services [address] [place] [address] 12 Lead EKG 02/27/25 1431 MR#: [id number] Acct: [id number] Name: UNA COSBY Rep #: [id number] : 1995 29 From: Doyle Morales MD [...] rhythm Normal ECG Confirmed by Doyle Morales ([id number]), assistant editor DOMINIC KEENE ([id number]) on 02/28/2025 1:48:34 PM Referred By: Confirmed By: Doyle Morales 02/28/25 1348 Date Doyle Morales MD CC: Dr. Berny Nelson MD; Dr. Arik Boswell MD; No Primary Care Physician Signed Normal [facility] Absolute lymphocyte countOrd ered By: Arikerica Boswell on 02-27-2025 Lymphocytes Auto (Unsp spec) [#/Vol] 2.53 10*3/uL 0.83-4.51 [facility] Absolute neutrophil countOrd ered By: [facility] 02-27-2025 Neutrophils (Bld) [#/Vol] 5.2 10*3/uL 2.0-7.7 [facility] Anion gap in Serum or Plasma Ordered By: Arikerica Boswell on 02-27-2025 Anion gap [Moles/Vol] 22 mmol/L High 5-15 [facility] Automated lymphocyte count a s percentage of total leukocytesOrdered By: Arikerica Boswell on 02-27-2025 Lymphocytes/100 WBC Auto (Unsp spec) 28.6 % 19-41 [facility] BUN/creatinine ratioOrdered By: [facility] on 02-27-2025 Urea nitrogen/Creatinine [Mass ratio] 11.0 mg/mg 10- [facility] Basic Metabolic Profile (BMP )on 02-27-2025 BUN/CRE 13.5 RATIO Normal - [facility] Comment on above: Performed By: #### L 501.080 #### [facility] [address] [place], [address] Calcium [Mass/Vol] 8.0 mg/dL Normal 7.6-11.0 [facility] Comment on above: Performed By: #### L 501.080 #### [facility] [address] [place], [address] Chloride [Moles/Vol] 106 mmol/L Normal 98-108 [place] Comment on above: Performed By: #### L 501.080 #### [facility] [address] [place], [address] CO2 [Moles/Vol] 25.0 mmol/L Normal 21.0-32.0 [facility] Comment on above: Performed By: #### L 501.080 #### [facility] [address] [place], [address] Creatinine [Mass/Vol] 0.44 mg/dL Low 0.70-1.20 [facility] Comment on above: Performed By: #### L 501.080 #### [facility] [address] [place], [address] ECRCL 207.10 ml/min Normal 50-250 [facility] Comment on above: Performed By: #### L 501.080 #### [facility] [address] [place], [address] GAP 9 Normal 5-15 [facility] Comment on above: Performed By: #### L 501.080 #### [facility] [address] [place], [address] GFR/1.73 sq M.predicted among non-blacks MDRD (S/P/Bld) [Vol rate/Area] 150 mL/min/{1.73_m2} Normal >60 [facility] Comment on above: Result Comment: mL/m in/1.73m2 CKD-EPI Creatinine Equation (2020) Performed By: #### L 501.080 #### [facility] [address] [place], [address] Glucose [Mass/Vol] 107 mg/dL High 70-99 [facility] Comment on above: Performed By: #### L 501.080 #### [facility] [address] [place], [address] Potassium [Moles/Vol] 3.2 mmol/L Low 3.3-5.1 [facility] Comment on above: Performed By: #### L 501.080 #### [facility] [address] [place], [address] Sodium [Moles/Vol] 141 mmol/L Normal 133-145 [facility] Comment on above: Performed By: #### L 501.080 #### [facility] [address] [place], [address] Urea nitrogen [Mass/Vol] 6 mg/dL Normal 4-19 [facility] Comment on above: Performed By: #### L 501.080 #### [facility] [address] [place], [address] BUN Normal 4-19 [facility] Comment on above: Result Comment: DUPL ICATE PER ED Performed By: #### L 501.080 #### [facility] [address] [place], [address] BUN/CRE Normal 10-20 [facility] Comment on above: Result Comment: DUPL ICATE PER ED Performed By: #### L 501.080 #### [facility] [address] [place], [address] Calcium Normal 7.6-11.0 [facility] Comment on above: Result Comment: DUPL ICATE PER ED Performed By: #### L 501.080 #### [facility] [address] [place], [address] CREAT,SERUM Normal 0.70-1.20 [facility] Comment on above: Result Comment: DUPL ICATE PER ED Performed By: #### L 501.080 #### [facility] [address] [place], [address] eGFR Normal >60 [facility] Comment on above: Result Comment: DUPL ICATE PER ED Performed By: #### L 501.080 #### [facility] [address] [place], [address] GLU Normal 70-99 [facility] Comment on above: Result Comment: DUPL ICATE PER ED Performed By: #### L 501.080 #### [facility] [address] [place], [address] Glucose [Mass/Vol] 865 mg/dL Invalid Interpretation Code 70-99 [facility] Comment on above: Result Comment: Crit ical Result(s) Called at: 02/27/2025-14:22 by: Koko Oh to Dr. Boswell.??Results read back by same. Performed By: #### L 501.080 #### [facility] [address] [place], [address] Basophil percentageOrdered B y: Arik Boswell on 02-27-2025 Basophils/100 WBC (Bld) 0.8 % 0-1 [facility] Bedside Glucoseon 02-27-2025 FINGERSTICK GLU 171 mg/dL High 74-106 [facility] Comment on above: Result Comment: TEJAL GEMENT OF PATIENT CARE PER NURSING PROTOCOL Performed By: #### L 500.2500 #### [facility] [address] [place], [address] FINGERSTICK GLU 93 mg/dL Normal 74-106 [facility] Comment on above: Result Comment: TEJAL GEMENT OF PATIENT CARE PER NURSING PROTOCOL Performed By: #### L 500.2500 #### [facility] [address] [place], [address] FINGERSTICK GLU 98 mg/dL Normal 74-106 [facility] Comment on above: Result Comment: TEJAL GEMENT OF PATIENT CARE PER NURSING PROTOCOL Performed By: #### L 500.2500 #### [facility] [address] [place], [address] FINGERSTICK GLU 116 mg/dL High 74-106 [facility] Comment on above: Result Comment: TEJAL GEMENT OF PATIENT CARE PER NURSING PROTOCOL Performed By: #### L 500.2500 #### [facility] [address] [place], [address] FINGERSTICK GLU 154 mg/dL High 74-106 [facility] Comment on above: Result Comment: TEJAL GEMENT OF PATIENT CARE PER NURSING PROTOCOL Performed By: #### L 501.080 #### [facility] [address] [place], [address] FINGERSTICK GLU 138 mg/dL High 74-106 [facility] Comment on above: Result Comment: TEJAL GEMENT OF PATIENT CARE PER NURSING PROTOCOL Performed By: #### L 500.2500 #### [facility] [address] [place], [address] FINGERSTICK GLU 362 mg/dL High 74-106 [facility] Comment on above: Result Comment: TEJAL GEMENT OF PATIENT CARE PER NURSING PROTOCOL Performed By: #### L 501.080 ####[facility] [address] [place], [address] FINGERSTICK GLU 269 mg/dL High [address] [place] [address] Comment on above: Result Comment: TEJAL GEMENT OF PATIENT CARE PER NURSING PROTOCOL Performed By: #### L 500.2500 #### [facility] [address] [place], [address] Beta-Hydroxbytyrateon 2024 BETA-HYDROXYBUT 0.1 mmol/L Normal 0.0-0.3 [facility] Comment on above: Performed By: #### L 500.2500 #### [facility] [address] [place], [address] Beta-hydroxybutyrateOrdered By: Marcelina Erickson on 02-27-2025 Beta hydroxybutyrate [Mass/Vol] 0.1 mmol/L 0.0-0.3 [facility] Bilirubin Test strip Ql (U)O rdered By: Arik Boswell on 02-27-2025 Bilirubin Ql (U) Negative Negative [facility] CBC W/Diff, Automatedon - Absolute Neut Normal 2.0-7.7 [facility] Comment on above: Result Comment: DUPL ICATE PER ED Performed By: #### L 100.0100 #### [facility] [address] [place], [address] HCT Normal 40-54 [facility] Comment on above: Result Comment: DUPL ICATE PER ED Performed By: #### L 100.0100 #### [facility] [address] [place], [address] HGB Normal 13.0-16.5 [facility] Comment on above: Result Comment: DUPL ICATE PER ED Performed By: #### L 100.0100 #### [facility] [address] [place], [address] MCH Normal 27.0-32.0 [facility] Comment on above: Result Comment: DUPL ICATE PER ED Performed By: #### L 100.0100 #### [facility] [address] [place], [address] MCHC Normal 32-36 [facility] Comment on above: Result Comment: DUPL ICATE PER ED Performed By: #### L 100.0100 #### [facility] [address] [place], [address] MCV Normal 80-94 [facility] Comment on above: Result Comment: DUPL ICATE PER ED Performed By: #### L 100.0100 #### [facility] [address] [place], [address] NEUT% Normal 47-70 [facility] Comment on above: Result Comment: DUPL ICATE PER ED Performed By: #### L 100.0100 #### [facility] [address] [place], [address] PLT Normal 150-450 [facility] Comment on above: Result Comment: DUPL ICATE PER ED Performed By: #### L 100.0100 #### [facility] [address] [place], [address] RBC Normal 4.6-6.2 [facility] Comment on above: Result Comment: DUPL ICATE PER ED Performed By: #### L 100.0100 #### [facility] [address] [place], [address] RDW CV Normal 11.6-14.6 [facility] Comment on above: Result Comment: DUPL ICATE PER ED Performed By: #### L 100.0100 #### [facility] [address] [place], [address] RDW SD Normal 35.1-43.9 [facility] Comment on above: Result Comment: DUPL ICATE PER ED Performed By: #### L 100.0100 #### [facility] [address] [place], [address] WBC Normal 4.4-11.0 [facility] Comment on above: Result Comment: DUPL ICATE PER ED Performed By: #### L 100.0100 #### [facility] [address] [place], [address] Absolute Lymph 2.53 X10 3/uL Normal 0.83-4.51 [facility] Comment on above: Performed By: #### L 501.080 #### [facility] [address] [place], [address] Absolute Neut 5.2 X10 3/uL Normal 2.0-7.7 [facility] Comment on above: Performed By: #### L 501.080 #### [facility] [address] [place], [address] Basophils/100 WBC (Bld) 0.8 % Normal 0-1 [facility] Comment on above: Performed By: #### L 501.080 #### [facility] [address] [place], [address] Eosinophils/100 WBC (Bld) 3.4 % Normal 0-5 [facility] Comment on above: Performed By: #### L 501.080 #### [facility] [address], [address] Erythrocyte distribution width (RBC) [Ratio] 17.4 % High 11.6-14.6 [facility] Comment on above: Performed By: #### L 501.080 #### [facility] [address], [address] Hematocrit (Bld) [Volume fraction] 40.1 % Normal 40-54 [facility] Comment on above: Performed By: #### L 501.080 #### [facility] [address] [place], [address] Hemoglobin (Bld) [Mass/Vol] 12.0 g/dL Low 13.0-16.5 [facility] Comment on above: Performed By: #### L 501.080 #### [facility] [address], [address] IG% 0.500 Normal 0.0-0.9 [facility] Comment on above: Result Comment: IG% - Immature Granulocytes (promyelocytes, myelocytes and metamyelocytes) > 1% indicates that a LEFT SHIFT is Present. Performed By: #### L 501.080 #### [facility] [address] [place], [address] Lymphocytes/100 WBC (Bld) 28.6 % Normal 19-41 [facility] Comment on above: Performed By: #### L 501.080 #### [facility] [address] [place], [address] MCH (RBC) [Entitic mass] 24.3 pg Low 27.0-32.0 [facility] Comment on above: Performed By: #### L 501.080 #### [facility] [address] [place], [address] MCHC (RBC) [Mass/Vol] 29.9 g/dL Low 32-36 [facility] Comment on above: Performed By: #### L 501.080 #### [facility] [address] [place], [address] MCV (RBC) [Entitic vol] 81.2 fL Normal 80-94 [facility] Comment on above: Performed By: #### L 501.080 #### [facility] [address] [place], [address] Monocytes/100 WBC (Bld) 7.6 % Normal 0-10 [facility] Comment on above: Performed By: #### L 501.080 #### [facility] [address] [place], [address] Neutrophils/100 WBC (Bld) 59.1 % Normal 47-70 [facility] Comment on above: Performed By: #### L 501.080 #### [facility] [address] [place], [address] Nucleated RBC (Bld) [#/Vol] 0 10*3/uL Normal 0-5 [facility] Comment on above: Performed By: #### L 501.080 #### [facility] [address] [place], [address] Platelet mean volume (Bld) [Entitic vol] 11.1 fL Normal 6.2-12.0 [facility] Comment on above: Performed By: #### L 501.080 #### [facility] [address] [place], [address] Platelets (Bld) [#/Vol] 268 10*3/uL Normal 150-450 [facility] Comment on above: Performed By: #### L 501.080 #### [facility] [address] [place], [address] RBC (Bld) [#/Vol] 4.94 10*6/uL Normal 4.6-6.2 [facility] Comment on above: Performed By: #### L 501.080 #### [facility] [address] [place], [address] RDW SD 51.4 fl High 35.1-43.9 [facility] Comment on above: Performed By: #### L 501.080 #### [facility] [address] [place], [address] WBC (Bld) [#/Vol] 8.8 10*3/uL Normal 4.4-11.0 [facility] Comment on above: Performed By: #### L 501.080 #### [facility] [address] [place], [address] CO2 (BldV) [Moles/Vol]Ordere d By: Marcelina Erickson on 02-27-2025 CO2 [Moles/Vol] 31 mmol/L 23-33 [facility] Carbon dioxide, total [Moles /volume] in Central venous bloodOrdered By: rAik Boswell on 02-27-2025 CO2 [Moles/Vol] 15.6 mmol/L Low 21.0-32.0 [facility] Chloride assayOrdered By: Dhiraj Boswell on 02-27-2025 Chloride [Moles/Vol] 91 mmol/L Low 98-108 [facility] Panelon 02-28-20 25 Chloride [Moles/Vol] 105 mmol/L Normal 98-108 [facility] Comment on above: Performed By: #### L 501.5294, L501.5200 ####[facility] [address] [place], [address] CO2 [Moles/Vol] 20.6 mmol/L Low 21.0-32.0 [facility] Comment on above: Performed By: #### L 501.5294, L501.5200 ####[facility] [address] [place], [address] GAP 13 Normal 5-15 [facility] Comment on above: Performed By: #### L 501.5294, L501.5200 ####[facility] [address] [place], [address] Potassium [Moles/Vol] 3.4 mmol/L Normal 3.3-5.1 [facility] Comment on above: Performed By: #### L 501.5294, L501.5200 ####[facility] [address] [place], [address] Sodium [Moles/Vol] 139 mmol/L Normal 133-145 [facility] Comment on above: Performed By: #### L 501.5294, L501.5200 ####[facility] [address] [place], [address] CL Normal 98-108 [facility] Comment on above: Result Comment: MOVE D TO REQ C509 Performed By: #### L 501.080 #### [facility] [address] [place], [address] Result Comment: DUPL ICATE PER ED CO2 Normal 21.0-32.0 [facility] Comment on above: Result Comment: MOVE D TO REQ C509 Performed By: #### L 501.080 #### [facility] [address] [place], [address] Result Comment: DUPL ICATE PER ED GAP Normal 5-15 [facility] Comment on above: Result Comment: MOVE D TO REQ C509 Performed By: #### L 501.080 #### [facility] [address] [place], [address] Result Comment: DUPL ICATE PER ED Potassium Normal 3.3-5.1 [facility] Comment on above: Result Comment: MOVE D TO REQ C509 Performed By: #### L 501.080 #### [facility] [address] [place], [address] Result Comment: DUPL ICATE PER ED Electrolyte Panel Normal 133-145 [facility] Comment on above: Result Comment: MOVE D TO REQ C509 Performed By: #### L 501.080 #### [facility] [address] [place], [address] Result Comment: DUPL ICATE PER ED Emergency Department Summary on 02-27-2025 Emergency Department Summary [facility] Medical Records Department [address] [place] [address] Emergency Department Summary 02/27/25 MR#: [id number] Acct: [id number] Name: UNA COSBY Rep #: [id number] : 1995 29 From: Arik Boswell MD PCP: Care Physician,No Primary Status:ADM IN Location: ICU [id number] HPI History of Present Illness Chief Complaint: [...] Vital Signs: (more content not included)... Normal [facility] Eosinophil percentageOrdered By: Arik Boswell on 02-27-2025 Eosinophils/100 WBC (Bld) 3.4 % 0-5 [facility] Erythrocyte distribution wid th ratioOrdered By: Arik Boswell on 02-27-2025 Erythrocyte distribution width (RBC) [Ratio] 17.4 % High 11.6-14.6 [facility] Erythrocyte distribution wid th standard deviationOrdered By: Arik Boswell on 02-27-2025 Erythrocyte distribution width (RBC) [Ratio] 51.4 fl High 35.1-43.9 [facility] Glomerular filtration rate ( GFR) estimation/1.73 sq m using serum, plasma, or whole bOrdered By: Arik Boswell on 02-27-2025 GFR/1.73 sq M.predicted among non-blacks MDRD (S/P/Bld) [Vol rate/Area] 103 mL/min/{1.73_m2} >60 [facility] Comment on above: mL/min/1.73m2 CKD-EP I Creatinine Equation (2020) H AND P Exam - [facility] 02-27-2025 H&P Exam - Hospitalist [facility] Medical Records Department [address] [place] [address] H P Exam - Hospitalist 02/27/25 1452 MR#: [id number] Acct: [id number] Name: UNA COSBY Rep #: [id number] : 1995 29 From: Marcelina Erickson MD PCP: Care Physician,No Primary Status:ADM IN Location: ICU [id number] HPI - General General Date of Admission: 02/27/25 Date of Service: 02/27/25 Chief Complaint: Heart palpitations HPI Narrative UNA CSOBY, is a20-mcom[age]mpo male history of type 1 diabetes and tobacco use presented to [facility] ED 02/27/2025 with complaints of heart palpitations. [...] at bedtime. Per patient he reports compliance [facility] Medical History Noncompliance with medication regimen Anxiety [...] to obtaini (more content not included)... Normal [facility] Hematocrit Auto (Bld) [Volum e fraction]Ordered By: [facility] on 02-27-2025 Hematocrit (Bld) [Volume fraction] 40.1 % 40-54 [facility] Hemoglobin measurementOrdere d By: [facility] on 02-27-2025 Hemoglobin (Bld) [Mass/Vol] 12.0 g/dL Low 13.0-16.5 [facility] Immature granulocytes/100 WB C Auto (Bld)Ordered By: [facility] on 02-27-2025 Immature granulocytes/100 WBC (Bld) 0.500 % 0.0-0.9 [facility] Comment on above: IG% - Immature Granu locytes (promyelocytes, myelocytes and metamyelocytes) > 1% indicates that a LEFT SHIFT is Present. Ketones Test strip Ql (U)Ord [facility]red [facility] Ketones Ql (U) 50 mg/dl High Negative [facility] MCV (mean corpuscular volume ) determinationOrdered By: Arik Boswell on 02-27-2025 MCV (RBC) [Entitic vol] 81.2 fL 80-94 [facility] Magnesiumon 02-27-2025 Magnesium [Mass/Vol] 1.8 mg/dL Normal 1.5-2.2 [facility] Comment on above: Performed By: #### L 501.080 #### [facility] [address] [place] [address]. [place], [place], [address] Magnesium [Mass/Vol] 2.1 mg/dL Normal 1.5-2.2 [facility] Comment on above: Performed By: #### L 501.5294, L501.5200 ####[facility] [address] [place], [address] Mean corpuscular hemoglobin (MCH) determinationOrdered By: Arik Boswell on 02-27-2025 MCH (RBC) [Entitic mass] 24.3 pg Low 27.0-32.0 [facility] Mean corpuscular hemoglobin concentration (MCHC) determinationOrdered By: Arik Boswell on 02-27-2025 MCHC (RBC) [Mass/Vol] 29.9 g/dL Low 32-36 [facility] Mean platelet volume determi nationOrdered By: Arik Boswell on 02-27-2025 Platelet mean volume (Bld) [Entitic vol] 11.1 fL 6.2-12.0 [facility] Microscopic analysis of urin e for red blood cells (RBC)Ordered By: Arik Boswell on 02-27-2025 Microscopic analysis of urine for red blood cells (RBC) 0-5 SEEN /hpf 0-5 [facility] Monocyte percentageOrdered B y: Arik Boswell on 02-27-2025 Monocytes/100 WBC (Bld) 7.6 % 0-10 [facility] Mucus LM Ql (Urine sed)Order ed By: Arik Boswell on 02-27-2025 Mucus Ql (Urine sed) 0 SEEN /hpf [facility] Neutrophil percentageOrdered By: Arik Boswell on 02-27-2025 Neutrophils/100 WBC (Bld) 59.1 % 47-70 [facility] Nitrite Test strip Ql (U)Ord ered By: Arik Boswell on 02-27-2025 Nitrite Ql (U) Negative Negative [facility] No Panel InformationOrdered By: Marcelina Erickson on 02-27-2025 Blood Gas Sample Site Not entered [facility] Blood Gas Specimen Type JAIDEN [facility] Oxygen Delivery Device Not entered [facility] Nucleated red blood cell per centageOrdered By: Arik Boswell on 02-27-2025 Nucleated RBC/100 WBC (Bld) [Ratio] 0 % 0-5 [facility] Phosphoruson 02-27-2025 Phosphate [Mass/Vol] 3.2 mg/dL Normal 2.7-4.5 [facility] Comment on above: Performed By: #### L 501.080 #### [facility] [address] [place], [address] Phosphate [Mass/Vol] 2.6 mg/dL Low 2.7-4.5 [facility] Comment on above: Performed By: #### L 501.080 #### [facility] [address] [place], [address] Platelet countOrdered By: Dhiraj Boswell on 02-27-2025 Platelets (Bld) [#/Vol] 268 10*3/uL 150-450 [facility] Potassium measurement (mass/ volume)Ordered By: Arik Boswell on 02-27-2025 Potassium (Unsp spec) [Mass/Vol] 5.3 mmol/L High 3.3-5.1 [facility] Protein Test strip Ql (U)Ord ered By: Arik Boswell on 02-27-2025 Protein Ql (U) 15 mg/dl High Negative [facility] RBC Auto (Bld) [#/Vol]Ordere d By: Arik Boswell on 02-27-2025 RBC (Bld) [#/Vol] 4.94 10*6/uL 4.6-6.2 [facility] Serum creatinine measurement (mass/volume)Ordered By: Arik Boswell on 02-27-2025 Creatinine [Mass/Vol] 1.02 mg/dL 0.70-1.20 [facility] Serum glucose measurement (m ass/volume)Ordered By: Arik Boswell on 02-27-2025 Glucose [Mass/Vol] 865 mg/dL High 70-99 [facility] Comment on above: Critical Result(s) C alled at: 02/27/2025-14:22 by: Koko Oh to Dr. Boswell. Results read back by same. Serum or plasma calcium koby urement (mass/volume)Ordered By: Arik Boswell on 02-27-2025 Calcium [Mass/Vol] 8.4 mg/dL 7.6-11.0 [facility] Serum or plasma urea nitroge n measurement (mass/volume)Ordered By: Arik Boswell on 02-27-2025 Urea nitrogen [Mass/Vol] 11 mg/dL 4-19 [facility] Sodium levelOrdered By: Arik Boswell on 02-27-2025 Sodium [Moles/Vol] 129 mmol/L Low 133-145 [facility] Squamous epithelial cells de tection in urine sediment by light microscopyOrdered By: Arik Boswell on 02-27-2025 Epithelial cells.squamous LM Ql (Urine sed) 0-5 SEEN /hpf 0-5 [facility] Urinalysis, Completeon 02-27 EPI,SQUAMOUS 0-5 SEEN Normal 0-5 [facility] Comment on above: Order Comment: CLEAN CATCH Performed By: #### L 501.080 #### [facility] [address] [place], [address] RBC 0-5 SEEN Normal 0-5 [facility] Comment on above: Order Comment: CLEAN CATCH Performed By: #### L 501.080 #### [facility] [address] [place], [address] WBC 0-5 SEEN Normal 0-5 [facility] Comment on above: Order Comment: CLEAN CATCH Performed By: #### L 501.080 #### [facility] [address] [place], [address] BACTERIA 0 SEEN Normal None Seen [facility] Comment on above: Order Comment: CLEAN CATCH Performed By: #### L 501.080 #### [facility] [address] [place], [address] Mucus Ql (Urine sed) 0 SEEN Normal [facility] Comment on above: Order Comment: CLEAN CATCH Performed By: #### L 501.080 #### [facility] [address] [place], [address] Urine clarityOrdered By: Arik Boswell on 02-27-2025 Clarity (U) Clear Clear [facility] Urine color determinationOrd ered By: Arik Boswell on 02-27-2025 Color (U) Straw Yellow [facility] Urine glucose detectionOrder ed By: Arik Boswell on 02-27-2025 Glucose Ql (U) 1000 mg/dl High Normal [facility] Urine leukocyte esterase det ection by dipstickOrdered By: Arik Boswell on 02-27-2025 Leukocyte esterase Test strip Ql (U) Negative Negative [facility] Urine pHOrdered By: Arik maldonado on 02-27-2025 pH (U) 6.0 [pH] 5.0 - 8.0 [facility] Urine sediment bacteria coun t by microscopy (number/high power field)Ordered By: Arik Boswell on 02-27-2025 Bacteria LM.HPF (Urine sed) [#/Area] 0 /[HPF] None Seen [facility] Urine specific gravity measu rementOrdered By: Arikerica Boswell on 02-27-2025 Specific gravity (U) [Rel density] 1.010 1.002-1.03 0 [facility] Urine urobilinogen measureme ntOrdered By: Arik Boswell on 02-27-2025 Urobilinogen Ql (U) Normal mg/dl Normal [facility] Venous Blood Gason Blood Gas Type JAIDEN [facility] Comment on above: Performed By: #### L 500.2500 #### [facility] [address] [place], [place], [address] CO2 [Moles/Vol] 31 mmol/L Normal - [facility] Comment on above: Performed By: #### L 500.2500 #### [facility] [address] [place], [place], [address] HCO3 (Bld) [Moles/Vol] 30 mmol/L High - [facility] Comment on above: Performed By: #### L 500.2500 #### [facility] [address] [place], [place], [address] O2 Delivery Dev Not entered [facility] Comment on above: Performed By: #### L 500.2500 #### [facility] [address] [place], [address] SITE Not entered Normal [facility] Comment on above: Performed By: #### L 500.2500 #### [facility] [address] [place], [address] VBG BE 7 mmol/L High -1.0-3.5 [facility] Comment on above: Performed By: #### L 500.2500 #### [facility] [address] [place], [address] VBG pCO2 40.2 mmHg Low 41-51 [facility] Comment on above: Performed By: #### L 500.2500 #### [facility] [address] [place], [address] VBG pH 7.48 High 7.32-7.42 [facility] Comment on above: Performed By: #### L 500.2500 #### [facility] [address] [place], [address] VBG PO2 53 mmHg High 25-40 [facility] Comment on above: Performed By: #### L 500.2500 #### [facility] [address] [place], [address] VBG SO2 89 High 50-70 [facility] Comment on above: Performed By: #### L 500.2500 #### [facility] [address] [place], [address] Venous blood base excess yaya surementOrdered By: Marcelina Erickson on 02-27-2025 Base excess Calc (BldV) [Moles/Vol] 7 mmol/L High -1.0-3.5 [facility] Venous blood bicarbonate yaya surementOrdered By: Marcelina Erickson on 02-27-2025 HCO3 (Bld) [Moles/Vol] 30 mmol/L High 22-26 [facility] Venous blood oxygen saturati on measurementOrdered By: Marcelina Erickson on 02-27-2025 Oxygen saturation in Blood 89 % High 50-70 [facility] Venous blood pH measurementO rdered By: Marcelina Erickson on 02-27-2025 pH (BldV) 7.48 [pH] High 7.32-7.42 [facility] Venous blood partial pressur e of carbon dioxide measurementOrdered By: Marcelina Erickson on 02-27-2025 CO2 (BldV) [Partial pressure] 40.2 mm[Hg] Low 41-51 [facility] Venous blood partial pressur e of oxygen measurementOrdered By: Marcelina Erickson on 02-27-2025 Oxygen (BldV) [Partial pressure] 53 mm[Hg] High 25-40 [facility] White blood cell (WBC) count Ordered By: Arik Boswell on 02-27-2025 WBC (Bld) [#/Vol] 8.8 10*3/uL 4.4-11.0 [facility] White blood cell countOrdere d By: Arik Boswell on 02-27-2025 White blood cell count 0-5 SEEN /hpf 0-5 [facility] Basic Metabolic Profile (BMP )on 02-07-2025 BUN Normal 4-19 [facility] Comment on above: Result Comment: Canc elled via OM: Order cancelled - Patient discharged Performed By: #### L 500.2500 ####[facility] [address] [place], [address] BUN/CRE Normal 10-20 [facility] Comment on above: Result Comment: Canc elled via OM: Order cancelled - Patient discharged Performed By: #### L 500.2500 ####[facility] [address] [facility] [address] Calcium Normal 7.6-11.0 [facility] Comment on above: Result Comment: Canc elled via OM: Order cancelled - Patient discharged Performed By: #### L 500.2500 ####[facility] [address] [place], [address] CL Normal 98-108 [facility] Comment on above: Result Comment: Canc elled via OM: Order cancelled - Patient discharged Performed By: #### L 500.2500 ####[facility] [address] [place], [address] CO2 Normal 21.0-32.0 [facility] Comment on above: Result Comment: Canc elled via OM: Order cancelled - Patient discharged Performed By: #### L 500.2500 ####[facility] [address] [place], [address] CREAT,SERUM Normal 0.70-1.20 [facility] Comment on above: Result Comment: Canc elled via OM: Order cancelled - Patient discharged Performed By: #### L 500.2500 ####[facility] [address] [place], [address] eGFR Normal >60 [facility] Comment on above: Result Comment: Canc elled via OM: Order cancelled - Patient discharged Performed By: #### L 500.2500 ####[facility] [address] [place], [address] GAP Normal 5-15 [facility] Comment on above: Result Comment: Canc elled via OM: Order cancelled - Patient discharged Performed By: #### L 500.2500 ####[facility] [address] [place], [address] GLU Normal 70-99 [facility] Comment on above: Result Comment: Canc elled via OM: Order cancelled - Patient discharged Performed By: #### L 500.2500 ####[facility] [address] [place], [address] Potassium Normal 3.3-5.1 [facility] Comment on above: Result Comment: Canc elled via OM: Order cancelled - Patient discharged Performed By: #### L 500.2500 ####[facility] [address] [place], [address] Basic Metabolic Profile (BMP) Normal 133-145 [facility] Comment on above: Result Comment: Canc elled via OM: Order cancelled - Patient discharged Performed By: #### L 500.2500 ####[facility] [address] [place], [address] Basic Metabolic Profile (BMP )on 02-06-2025 BUN Normal 4-19 [facility] Comment on above: Result Comment: Canc elled via OM: Order cancelled - Patient discharged Performed By: #### L 500.2500, L100.0100 ####[facility] [address] [place], [address] BUN/CRE Normal 10-20 [facility] Comment on above: Result Comment: Canc elled via OM: Order cancelled - Patient discharged Performed By: #### L 500.2500, L100.0100 ####[facility] [address] [place], [address] Calcium Normal 7.6-11.0 [facility] Comment on above: Result Comment: Canc elled via OM: Order cancelled - Patient discharged Performed By: #### L 500.2500, L100.0100 ####[facility] [address] [place], [address] CL Normal 98-108 [facility] Comment on above: Result Comment: Canc elled via OM: Order cancelled - Patient discharged Performed By: #### L 500.2500, L100.0100 ####[facility] [address] [place], [address] CO2 Normal 21.0-32.0 [facility] Comment on above: Result Comment: Canc elled via OM: Order cancelled - Patient discharged Performed By: #### L 500.2500, L100.0100 ####[facility] [address] [place], [address] CREAT,SERUM Normal 0.70-1.20 [facility] Comment on above: Result Comment: Canc elled via OM: Order cancelled - Patient discharged Performed By: #### L 500.2500, L100.0100 ####[facility] [address] [place], [address] eGFR Normal >60 [facility] Comment on above: Result Comment: Canc elled via OM: Order cancelled - Patient discharged Performed By: #### L 500.2500, L100.0100 ####[facility] [address] [place], [address] GAP Normal 5-15 [facility] Comment on above: Result Comment: Canc elled via OM: Order cancelled - Patient discharged Performed By: #### L 500.2500, L100.0100 ####[facility] [address] [place], [address] GLU Normal 70-99 [facility] Comment on above: Result Comment: Canc elled via OM: Order cancelled - Patient discharged Performed By: #### L 500.2500, L100.0100 ####[facility] [address] [place], [address] Potassium Normal 3.3-5.1 [facility] Comment on above: Result Comment: Canc elled via OM: Order cancelled - Patient discharged Performed By: #### L 500.2500, L100.0100 ####[facility] [address] [place], [address] Basic Metabolic Profile (BMP) Normal 133-145 [facility] Comment on above: Result Comment: Canc elled via OM: Order cancelled - Patient discharged Performed By: #### L 500.2500, L100.0100 ####[facility] [address] [place], [address] BUN Normal 4-19 [facility] Comment on above: Order Comment: Call MD with results STAT Result Comment: Canc elled via OM: MD Ordered Performed By: #### L 500.2500 ####[facility] [address] [place], [address] BUN/CRE Normal 10-20 [facility] Comment on above: Order Comment: Call MD with results STAT Result Comment: Canc elled via OM: MD Ordered Performed By: #### L 500.2500 ####[facility] [address] [place], [address] Calcium Normal 7.6-11.0 [facility] Comment on above: Order Comment: Call MD with results STAT Result Comment: Canc elled via OM: MD Ordered Performed By: #### L 500.2500 ####[facility] [address] [place], [address] CL Normal 98-108 [facility] Comment on above: Order Comment: Call MD with results STAT Result Comment: Canc elled via OM: MD Ordered Performed By: #### L 500.2500 ####[facility] [address] [place], [address] CO2 Normal 21.0-32.0 [facility] Comment on above: Order Comment: Call MD with results STAT Result Comment: Canc elled via OM: MD Ordered Performed By: #### L 500.2500 ####[facility] [address] [place], [address] CREAT,SERUM Normal 0.70-1.20 [facility] Comment on above: Order Comment: Call MD with results STAT Result Comment: Canc elled via OM: MD Ordered Performed By: #### L 500.2500 ####[facility] [address] [place], [address] eGFR Normal >60 [facility] Comment on above: Order Comment: Call MD with results STAT Result Comment: Canc elled via OM: MD Ordered Performed By: #### L 500.2500 ####[facility] [address] [place], [address] GAP Normal 5-15 [facility] Comment on above: Order Comment: Call MD with results STAT Result Comment: Canc elled via OM: MD Ordered Performed By: #### L 500.2500 ####[facility] [address] [place], [address] GLU Normal 70-99 [facility] Comment on above: Order Comment: Call MD with results STAT Result Comment: Canc elled via OM: MD Ordered Performed By: #### L 500.2500 ####[facility] [address] [place], [address] Potassium Normal 3.3-5.1 [facility] Comment on above: Order Comment: Call MD with results STAT Result Comment: Canc elled via OM: MD Ordered Performed By: #### L 500.2500 ####[facility] [address] [place], [address] Basic Metabolic Profile (BMP) Normal 133-145 [facility] Comment on above: Order Comment: Call MD with results STAT Result Comment: Canc elled via OM: MD Ordered Performed By: #### L 500.2500 ####[facility] [address] [place], [address] BUN Normal 4-19 [facility] Comment on above: Order Comment: Call MD with results STAT Result Comment: Canc elled via OM: MD Ordered Performed By: #### L 500.2500 ####[facility] [address] [place], [address] BUN/CRE Normal 10-20 [facility] Comment on above: Order Comment: Call MD with results STAT Result Comment: Canc elled via OM: MD Ordered Performed By: #### L 500.2500 ####[facility] [address] [place], [address] Calcium Normal 7.6-11.0 [facility] Comment on above: Order Comment: Call MD with results STAT Result Comment: Canc elled via OM: MD Ordered Performed By: #### L 500.2500 ####[facility] [address] [place], [address] CL Normal 98-108 [facility] Comment on above: Order Comment: Call MD with results STAT Result Comment: Canc elled via OM: MD Ordered Performed By: #### L 500.2500 ####[facility] [address] [place], [address] CO2 Normal 21.0-32.0 [facility] Comment on above: Order Comment: Call MD with results STAT Result Comment: Canc elled via OM: MD Ordered Performed By: #### L 500.2500 ####[facility] [address] [place], [address] CREAT,SERUM Normal 0.70-1.20 [facility] Comment on above: Order Comment: Call MD with results STAT Result Comment: Canc elled via OM: MD Ordered Performed By: #### L 500.2500 ####[facility] [address] [place], [address] eGFR Normal >60 [facility] Comment on above: Order Comment: Call MD with results STAT Result Comment: Canc elled via OM: MD Ordered Performed By: #### L 500.2500 ####[facility] [address] [place], [address] GAP Normal 5-15 [facility] Comment on above: Order Comment: Call MD with results STAT Result Comment: Canc elled via OM: MD Ordered Performed By: #### L 500.2500 ####[facility] [address] [place], [address] GLU Normal 70-99 [facility] Comment on above: Order Comment: Call MD with results STAT Result Comment: Canc elled via OM: MD Ordered Performed By: #### L 500.2500 ####[facility] [address] [place], [address] Potassium Normal 3.3-5.1 [facility] Comment on above: Order Comment: Call MD with results STAT Result Comment: Canc elled via OM: MD Ordered Performed By: #### L 500.2500 ####[facility] [address] [place], [address] Basic Metabolic Profile (BMP) Normal 133-145 [facility] Comment on above: Order Comment: Call MD with results STAT Result Comment: Canc elled via OM: MD Ordered Performed By: #### L 500.2500 ####[facility] [address] [place], [address] CBC W/Diff, Automatedon 07-0 Absolute Neut Normal 2.0-7.7 [facility] Comment on above: Result Comment: Canc elled via OM: Order cancelled - Patient discharged Performed By: #### L 500.2500, L100.0100 ####[facility] [address] [place], [address] HCT Normal 40-54 [facility] Comment on above: Result Comment: Canc elled via OM: Order cancelled - Patient discharged Performed By: #### L 500.2500, L100.0100 ####[facility] [address] [place], [address] HGB Normal 13.0-16.5 [facility] Comment on above: Result Comment: Canc elled via OM: Order cancelled - Patient discharged Performed By: #### L 500.2500, L100.0100 ####[facility] [address] [place], [address] MCH Normal 27.0-32.0 [facility] Comment on above: Result Comment: Canc elled via OM: Order cancelled - Patient discharged Performed By: #### L 500.2500, L100.0100 ####[facility] [address] [place], [address] MCHC Normal 32-36 [facility] Comment on above: Result Comment: Canc elled via OM: Order cancelled - Patient discharged Performed By: #### L 500.2500, L100.0100 ####[facility] [address] [place], [address] MCV Normal 80-94 [facility] Comment on above: Result Comment: Canc elled via OM: Order cancelled - Patient discharged Performed By: #### L 500.2500, L100.0100 ####[facility] [address] [place], [address] NEUT% Normal 47-70 [facility] Comment on above: Result Comment: Canc elled via OM: Order cancelled - Patient discharged Performed By: #### L 500.2500, L100.0100 ####[facility] [address] [place], [address] PLT Normal 150-450 [facility] Comment on above: Result Comment: Canc elled via OM: Order cancelled - Patient discharged Performed By: #### L 500.2500, L100.0100 ####[facility] [address] [place], [address] RBC Normal 4.6-6.2 [facility] Comment on above: Result Comment: Canc elled via OM: Order cancelled - Patient discharged Performed By: #### L 500.2500, L100.0100 ####[facility] [address] [place], [address] RDW CV Normal 11.6-14.6 [facility] Comment on above: Result Comment: Canc elled via OM: Order cancelled - Patient discharged Performed By: #### L 500.2500, L100.0100 ####[facility] [address] [place], [address] RDW SD Normal 35.1-43.9 [facility] Comment on above: Result Comment: Canc elled via OM: Order cancelled - Patient discharged Performed By: #### L 500.2500, L100.0100 ####[facility] [address] [place], [address] WBC Normal 4.4-11.0 [facility] Comment on above: Result Comment: Canc elled via OM: Order cancelled - Patient discharged Performed By: #### L 500.2500, L100.0100 ####[facility] [address] [place], [address] 12 Lead EKGon 02-05-2025 [address] [facility] [address] [facility] [address] 12 Lead EKG 02/05/25 0238 MR#: [id number] Acct: [id number] Name: UNA COSBY Rep #: [id number] : 1995 29 From: Robbi Salazar MD [...] normal ECG Confirmed by NESTOR MIRELES, ROBBI ([id number]), assistant editor DOMINIC KEENE ([id number]) on 02/06/2025 6:37:13 AM Referred By: Confirmed By: ROBBI SALAZAR MD 02/06/25 0637 Date Robbi Salazar MD CC: Dr. Alo Zambrano MD; Dr. Babita Rivera DO; No Primary Care Physician Signed Normal [facility] Absolute lymphocyte countOrd ered By: Sarah Oh on 02-05-2025 Lymphocytes Auto (Unsp spec) [#/Vol] 4.47 10*3/uL 0.83-4.51 [facility] Absolute lymphocyte countOrd ered By: Remus Ungur on 02-05-2025 Lymphocytes Auto (Unsp spec) [#/Vol] 4.05 10*3/uL 0.83-4.51 [facility] Absolute neutrophil countOrd ered By: Sarah Oh on 02-05-2025 Neutrophils (Bld) [#/Vol] 6.8 10*3/uL 2.0-7.7 [facility] Absolute neutrophil countOrd ered By: Remus Ungur on 02-05-2025 Neutrophils (Bld) [#/Vol] 7.3 10*3/uL 2.0-7.7 [facility] Anion gap in Serum or Plasma Ordered By: Sarah Oh on 02-05-2025 Anion gap [Moles/Vol] 7 mmol/L 12-21 [facility] Anion gap in Serum or Plasma Ordered By: Babita Rivera on 02-05-2025 Anion gap [Moles/Vol] 23 mmol/L High 12-21 [facility] Automated lymphocyte count a s percentage of total leukocytesOrdered By: Sarah White on 02-05-2025 Lymphocytes/100 WBC Auto (Unsp spec) 34.1 % [facility] Automated lymphocyte count a s percentage of total leukocytesOrdered By: Remus Ungur on 02-05-2025 Lymphocytes/100 WBC Auto (Unsp spec) 31.1 % [facility] BUN/creatinine ratioOrdered By: Sarah Oh on 02-05-2025 Urea nitrogen/Creatinine [Mass ratio] 20.0 mg/mg 05-28 [facility] BUN/creatinine ratioOrdered By: Remus Ungur on 02-05-2025 Urea nitrogen/Creatinine [Mass ratio] 19.9 mg/mg 05-28 [facility] Basic Metabolic Profile (BMP )on 02-05-2025 BUN Normal 11-25 [facility] Comment on above: Order Comment: Call MD with results STAT Result Comment: Puneet craft via OM: MD Ordered Performed By: #### L 500.2500 #### [facility] [address] [place], [address] BUN/CRE Normal 10-20 [facility] Comment on above: Order Comment: Call MD with results STAT Result Comment: Canc elled via OM: MD Ordered Performed By: #### L 500.2500 #### [facility] [address] [place], [address] Calcium Normal 7.6-11.0 [facility] Comment on above: Order Comment: Call MD with results STAT Result Comment: Canc elled via OM: MD Ordered Performed By: #### L 500.2500 #### [facility] [address] [place], [address] CL Normal 98-108 [facility] Comment on above: Order Comment: Call MD with results STAT Result Comment: Canc elled via OM: MD Ordered Performed By: #### L 500.2500 #### [facility] [address] [place], [address] CO2 Normal 21.0-32.0 [facility] Comment on above: Order Comment: Call MD with results STAT Result Comment: Canc elled via OM: MD Ordered Performed By: #### L 500.2500 #### [facility] [address] [place], [address] CREAT,SERUM Normal 0.70-1.20 [facility] Comment on above: Order Comment: Call MD with results STAT Result Comment: Canc elled via OM: MD Ordered Performed By: #### L 500.2500 #### [facility] [address] [place], [address] eGFR Normal >60 [facility] Comment on above: Order Comment: Call MD with results STAT Result Comment: Canc elled via OM: MD Ordered Performed By: #### L 500.2500 #### [facility] [address] [place], [address] GAP Normal 5-15 [facility] Comment on above: Order Comment: Call MD with results STAT Result Comment: Canc elled via OM: MD Ordered Performed By: #### L 500.2500 #### [facility] [address] [place], [address] GLU Normal 70-99 [facility] Comment on above: Order Comment: Call MD with results STAT Result Comment: Canc elled via OM: MD Ordered Performed By: #### L 500.2500 #### [facility] [address] [place], [address] Potassium Normal 3.3-5.1 [facility] Comment on above: Order Comment: Call MD with results STAT Result Comment: Canc elled via OM: MD Ordered Performed By: #### L 500.2500 #### [facility] [address] [place], [address] Basic Metabolic Profile (BMP) Normal 133-145 [facility] Comment on above: Order Comment: Call MD with results STAT Result Comment: Canc elled via OM: MD Ordered Performed By: #### L 500.2500 #### [facility] [address] [place], [address] BUN Normal 4-19 [facility] Comment on above: Order Comment: Call MD with results STAT Result Comment: Canc elled via OM: MD Ordered Performed By: #### L 500.2500 #### [facility] [address] [place], [address] BUN/CRE Normal 10-20 [facility] Comment on above: Order Comment: Call MD with results STAT Result Comment: Canc elled via OM: MD Ordered Performed By: #### L 500.2500 #### [facility] [address] [place], [address] Calcium Normal 7.6-11.0 [facility] Comment on above: Order Comment: Call MD with results STAT Result Comment: Canc elled via OM: MD Ordered Performed By: #### L 500.2500 #### [facility] [address] [place], [address] CL Normal 98-108 [facility] Comment on above: Order Comment: Call MD with results STAT Result Comment: Puneet elled via OM: MD Ordered Performed By: #### L 500.2500 #### [facility] [address] [place], [address] CO2 Normal 21.0-32.0 [facility] Comment on above: Order Comment: Call MD with results STAT Result Comment: Candanielle elled via OM: MD Ordered Performed By: #### L 500.2500 #### [facility] [address] [place], [address] CREAT,SERUM Normal 0.70-1.20 [facility] Comment on above: Order Comment: Call MD with results STAT Result Comment: Puneet elled via OM: MD Ordered Performed By: #### L 500.2500 #### [facility] [address] [place], [address] eGFR Normal >60 [facility] Comment on above: Order Comment: Call MD with results STAT Result Comment: Puneet elled via OM: MD Ordered Performed By: #### L 500.2500 #### [facility] [address] [place], [address] GAP Normal 5-15 [facility] Comment on above: Order Comment: Call MD with results STAT Result Comment: Puneet elled via OM: MD Ordered Performed By: #### L 500.2500 #### [facility] [address] [place], [address] GLU Normal 70-99 [facility] Comment on above: Order Comment: Call MD with results STAT Result Comment: Puneet elled via OM: MD Ordered Performed By: #### L 500.2500 #### [facility] [address] [place], [address] Potassium Normal 3.3-5.1 [facility] Comment on above: Order Comment: Call MD with results STAT Result Comment: Canc elled via OM: MD Ordered Performed By: #### L 500.2500 #### [facility] [address] [place], [address] Basic Metabolic Profile (BMP) Normal 133-145 [facility] Comment on above: Order Comment: Call MD with results STAT Result Comment: Puneet elled via OM: MD Ordered Performed By: #### L 500.2500 #### [facility] [address] [place], [address] BUN/CRE 20.0 RATIO Normal 10-20 [facility] Comment on above: Order Comment: Call MD with results STAT Performed By: #### L 500.2500 #### [facility] [address] [place], [address] Calcium [Mass/Vol] 7.7 mg/dL Normal 7.6-11.0 [facility] Comment on above: Order Comment: Call MD with results STAT Performed By: #### L 500.2500 #### [facility] [address] [place], [address] Chloride [Moles/Vol] 105 mmol/L Normal 98-108 [place] Comment on above: Order Comment: Call MD with results STAT Performed By: #### L 500.2500 #### [facility] [address] [place], [address] CO2 [Moles/Vol] 26.0 mmol/L Normal 21.0-32.0 [facility] Comment on above: Order Comment: Call MD with results STAT Performed By: #### L 500.2500 #### [facility] [address] [place], [address] Creatinine [Mass/Vol] 0.51 mg/dL Low 0.70-1.20 [facility] Comment on above: Order Comment: Call MD with results STAT Performed By: #### L 500.2500 #### [facility] [address] [place], [address] ECRCL 188.95 ml/min Normal 50-250 [facility] Comment on above: Order Comment: Call MD with results STAT Performed By: #### L 500.2500 #### [facility] [address] [place], [address] GAP 7 Normal 5-15 [facility] Comment on above: Order Comment: Call MD with results STAT Performed By: #### L 500.2500 #### [facility] [address] [place], [address] GFR/1.73 sq M.predicted among non-blacks MDRD (S/P/Bld) [Vol rate/Area] 142 mL/min/{1.73_m2} Normal >60 [facility] Comment on above: Order Comment: Call MD with results STAT Result Comment: mL/m in/1.73m2 CKD-EPI Creatinine Equation (2020) Performed By: #### L 500.2500 #### [facility] [address] [place], [address] Glucose [Mass/Vol] 170 mg/dL High 70-99 [facility] Comment on above: Order Comment: Call MD with results STAT Performed By: #### L 500.2500 #### [facility] [address] [place], [address] Potassium [Moles/Vol] 3.4 mmol/L Normal 3.3-5.1 [facility] Comment on above: Order Comment: Call MD with results STAT Performed By: #### L 500.2500 #### [facility] [address] [place], [address] Sodium [Moles/Vol] 137 mmol/L Normal 133-145 [facility] Comment on above: Order Comment: Call MD with results STAT Performed By: #### L 500.2500 #### [facility] [address] [place], [address] Urea nitrogen [Mass/Vol] 10 mg/dL Normal 4-19 [facility] Comment on above: Order Comment: Call MD with results STAT Performed By: #### L 500.2500 #### [facility] [address] [place], [address] BUN/CRE 20.0 RATIO Normal 10-20 [facility] Comment on above: Order Comment: Call MD with results STAT Performed By: #### L 500.2500 ####[facility] [address] [place], [address] Calcium [Mass/Vol] 8.2 mg/dL Normal 7.6-11.0 [facility] Comment on above: Order Comment: Call MD with results STAT Performed By: #### L 500.2500 ####[facility] [address] [place], [address] Chloride [Moles/Vol] 106 mmol/L Normal 98-108 [place] Comment on above: Order Comment: Call MD with results STAT Performed By: #### L 500.2500 ####[facility] [address] [place], [address] CO2 [Moles/Vol] 26.0 mmol/L Normal 21.0-32.0 [facility] Comment on above: Order Comment: Call MD with results STAT Performed By: #### L 500.2500 ####[facility] [address] [place], [address] Creatinine [Mass/Vol] 0.61 mg/dL Low 0.70-1.20 [facility] Comment on above: Order Comment: Call MD with results STAT Performed By: #### L 500.2500 ####[facility] [address] [place], [address] ECRCL 157.97 ml/min Normal 50-250 [facility] Comment on above: Order Comment: Call MD with results STAT Performed By: #### L 500.2500 ####[facility] [address] [place], [address] GAP 9 Normal 5-15 [facility] Comment on above: Order Comment: Call MD with results STAT Performed By: #### L 500.2500 ####[facility] [address] [place], [address] GFR/1.73 sq M.predicted among non-blacks MDRD (S/P/Bld) [Vol rate/Area] 135 mL/min/{1.73_m2} Normal >60 [facility] Comment on above: Order Comment: Call MD with results STAT Result Comment: mL/m in/1.73m2 CKD-EPI Creatinine Equation (2020) Performed By: #### L 500.2500 ####[facility] [address] [place], [address] Glucose [Mass/Vol] 155 mg/dL High 70-99 [facility] Comment on above: Order Comment: Call MD with results STAT Performed By: #### L 500.2500 ####[facility] [address] [place], [address] Potassium [Moles/Vol] 3.9 mmol/L Normal 3.3-5.1 [facility] Comment on above: Order Comment: Call MD with results STAT Performed By: #### L 500.2500 ####[facility] [address] [place], [address] Sodium [Moles/Vol] 141 mmol/L Normal 133-145 [facility] Comment on above: Order Comment: Call MD with results STAT Performed By: #### L 500.2500 ####[facility] [address] [place], [address] Urea nitrogen [Mass/Vol] 12 mg/dL Normal 4-19 [facility] Comment on above: Order Comment: Call MD with results STAT Performed By: #### L 500.2500 ####[facility] [address] [place], [address] BUN/CRE 23.2 RATIO High 10-20 [facility] Comment on above: Order Comment: Call MD with results STAT Performed By: #### L 100.0100 #### [facility] [address] [place], [address] Calcium [Mass/Vol] 8.0 mg/dL Normal 7.6-11.0 [facility] Comment on above: Order Comment: Call MD with results STAT Performed By: #### L 100.0100 #### [facility] [address] [place], [address] Chloride [Moles/Vol] 103 mmol/L Normal 98-108 [place] Comment on above: Order Comment: Call MD with results STAT Performed By: #### L 100.0100 #### [facility] [address] [place], [address] CO2 [Moles/Vol] 22.9 mmol/L Normal 21.0-32.0 [facility] Comment on above: Order Comment: Call MD with results STAT Performed By: #### L 100.0100 #### [facility] [address] [place], [address] Creatinine [Mass/Vol] 0.61 mg/dL Low 0.70-1.20 [facility] Comment on above: Order Comment: Call MD with results STAT Performed By: #### L 100.0100 #### [facility] [address] [place], [address] ECRCL 157.97 ml/min Normal 50-250 [facility] Comment on above: Order Comment: Call MD with results STAT Performed By: #### L 100.0100 #### [facility] [address] [place], [address] GAP 12 Normal 5-15 [facility] Comment on above: Order Comment: Call MD with results STAT Performed By: #### L 100.0100 #### [facility] [address] [place], [address] GFR/1.73 sq M.predicted among non-blacks MDRD (S/P/Bld) [Vol rate/Area] 135 mL/min/{1.73_m2} Normal >60 [facility] Comment on above: Order Comment: Call MD with results STAT Result Comment: mL/m in/1.73m2 CKD-EPI Creatinine Equation (2020) Performed By: #### L 100.0100 #### [facility] [address] [place], [address] Glucose [Mass/Vol] 248 mg/dL High 70-99 [facility] Comment on above: Order Comment: Call MD with results STAT Performed By: #### L 100.0100 #### [facility] [address] [place], [address] Potassium [Moles/Vol] 3.7 mmol/L Normal 3.3-5.1 [facility] Comment on above: Order Comment: Call MD with results STAT Performed By: #### L 100.0100 #### [facility] [address] [place], [address] Sodium [Moles/Vol] 137 mmol/L Normal 133-145 [facility] Comment on above: Order Comment: Call MD with results STAT Performed By: #### L 100.0100 #### [facility] [address] [place], [address] Urea nitrogen [Mass/Vol] 14 mg/dL Normal 4-19 [facility] Comment on above: Order Comment: Call MD with results STAT Performed By: #### L 100.0100 #### [facility] [address] [place], [address] BUN/CRE 19.9 RATIO Normal 10-20 [facility] Comment on above: Performed By: #### L 500.2500 #### [facility] [address] [place], [address] Calcium [Mass/Vol] 10.0 mg/dL Normal 7.6-11.0 [facility] Comment on above: Performed By: #### L 500.2500 #### [facility] [address] [place], [address] Chloride [Moles/Vol] 86 mmol/L Low 98-108 [place] Comment on above: Performed By: #### L 500.2500 #### [facility] [address] [place], [address] CO2 [Moles/Vol] 19.6 mmol/L Low 21.0-32.0 [facility] Comment on above: Performed By: #### L 500.2500 #### [facility] [address] [place], [address] Creatinine [Mass/Vol] 0.97 mg/dL Normal 0.70-1.20 [facility] Comment on above: Performed By: #### L 500.2500 #### [facility] [address] [place], [address] ECRCL 99.02 ml/min Normal 50-250 [facility] Comment on above: Performed By: #### L 500.2500 #### [facility] [address] [place], [address] GAP 23 High 5-15 [facility] Comment on above: Performed By: #### L 500.2500 #### [facility] [address] [place], [address] GFR/1.73 sq M.predicted among non-blacks MDRD (S/P/Bld) [Vol rate/Area] 110 mL/min/{1.73_m2} Normal >60 [facility] Comment on above: Result Comment: mL/m in/1.73m2 CKD-EPI Creatinine Equation (2020) Performed By: #### L 500.2500 #### [facility] [address] [place], [address] Glucose [Mass/Vol] 736 mg/dL Invalid Interpretation Code 70-99 [facility] Comment on above: Result Comment: Crit ical Result(s) Called at: 02/05/2025-03:34 by: Koko Oh to Casimiro Cast.??Results read back by same. Performed By: #### L 500.2500 #### [facility] [address] [place], [address] Potassium [Moles/Vol] 4.5 mmol/L Normal 3.3-5.1 [facility] Comment on above: Performed By: #### L 500.2500 #### [facility] [address] [place], [address] Sodium [Moles/Vol] 128 mmol/L Low 133-145 [facility] Comment on above: Performed By: #### L 500.2500 #### [facility] [address] [place], [address] Urea nitrogen [Mass/Vol] 19 mg/dL Normal 4-19 [facility] Comment on above: Performed By: #### L 500.2500 #### [facility] [address] [place], [address] Basophil percentageOrdered B y: Sarah White on 02-05-2025 Basophils/100 WBC (Bld) 0.6 % 0-1 [facility] Basophil percentageOrdered B y: Remus Ungur on 02-05-2025 Basophils/100 WBC (Bld) 0.7 % 0-1 [facility] Bedside Glucoseon 02-05-2025 FINGERSTICK GLU 138 mg/dL High 74-106 [facility] Comment on above: Result Comment: TEJAL MATTA OF PATIENT CARE PER NURSING PROTOCOL Performed By: #### L 500.2500 #### [facility] [address] [place], [address] FINGERSTICK GLU 149 mg/dL High 74-106 [facility] Comment on above: Result Comment: TEJAL GEMENT OF PATIENT CARE PER NURSING PROTOCOL Performed By: #### L 501.080 ####[facility] [address] [place], [address] FINGERSTICK GLU 169 mg/dL High 74-106 [facility] Comment on above: Result Comment: TEJAL GEMENT OF PATIENT CARE PER NURSING PROTOCOL Performed By: #### L 501.080 ####[facility] [address] [place], [address] FINGERSTICK GLU 158 mg/dL High 74-106 [facility] Comment on above: Result Comment: TEJAL GEMENT OF PATIENT CARE PER NURSING PROTOCOL Performed By: #### L 501.080 #### [facility] [address] [place], [address] FINGERSTICK GLU 139 mg/dL High 74-106 [facility] Comment on above: Result Comment: TEJAL GEMENT OF PATIENT CARE PER NURSING PROTOCOL Performed By: #### L 100.0100 #### [facility] [address] [place], [address] FINGERSTICK GLU 159 mg/dL High -106 [facility] Comment on above: Result Comment: TEJAL GEMENT OF PATIENT CARE PER NURSING PROTOCOL Performed By: #### L 501.080 #### [facility] [address] [place], [address] FINGERSTICK GLU 181 mg/dL High 74-106 [facility] Comment on above: Result Comment: TEJAL GEMENT OF PATIENT CARE PER NURSING PROTOCOL Performed By: #### L 500.2500 #### [facility] [address] [facility] [address] FINGERSTICK GLU 269 mg/dL High 74-106 [facility] Comment on above: Result Comment: TEJAL GEMENT OF PATIENT CARE PER NURSING PROTOCOL Performed By: #### L 100.0100 #### [facility] [address] [place], [address] FINGERSTICK GLU 308 mg/dL High [address] Comment on above: Result Comment: TEJAL GEMENT OF PATIENT CARE PER NURSING PROTOCOL Performed By: #### L 500.2500 #### [facility] [address] [place], [address] FINGERSTICK GLU 430 mg/dL High [address] [place] [address] Comment on above: Result Comment: TEJAL GEMENT OF PATIENT CARE PER NURSING PROTOCOL Performed By: #### L 500.2500 #### [facility] [address] [place], [address] FINGERSTICK GLU > 500 Invalid Interpretation Code -[address] [place] [address] Comment on above: Result Comment: Dr Erica egan Followed MANAGEMENT OF PATIENT CARE PER NURSING PROTOCOL Performed By: #### L 100.0100 #### [facility] [address] [place], [address] Beta-Hydroxbytyrateon 2024 BETA-HYDROXYBUT 5.5 mmol/L High 0.0-0.3 [facility] Comment on above: Performed By: #### L 500.2500 #### [facility] [address] [place], [address] Beta-hydroxybutyrateOrdered By: Babita Rivera on 02-05-2025 Beta hydroxybutyrate [Mass/Vol] 5.5 mmol/L High 0.0-0.3 [facility] Bilirubin Test strip Ql (U)O rdered By: Remus Miguel on 02-05-2025 Bilirubin Ql (U) Negative Negative [facility] Blood manual differential co mment interpretation (narrative result)Ordered By: Remus Rivera on 02-05-2025 Manual differential comment Gigi (Bld) [Interp] SCANNED [facility] CBC W/Diff, Automatedon 01-09 ATYPICAL LYMPH 1+ Normal [facility] Comment on above: Performed By: #### L 100.0100, L501.9985 ####[facility] [address] [place], [address] SMEAR COMMENT SCANNED Normal [facility] Comment on above: Performed By: #### L 500.2500 #### [facility] [address] [place], [address] Carbon dioxide, total [Moles /volume] in Central venous bloodOrdered By: Sarah White on 02-05-2025 CO2 [Moles/Vol] 26.0 mmol/L 21.0-32.0 [facility] Carbon dioxide, total [Moles /volume] in Central venous bloodOrdered By: Babita Rivera on 02-05-2025 CO2 [Moles/Vol] 19.6 mmol/L Low 21.0-32.0 [facility] Chloride assayOrdered By: Jaimie Oh on 02-05-2025 Chloride [Moles/Vol] 105 mmol/L 98-108 [place] Chloride assayOrdered By: Cata Rivera on 02-05-2025 Chloride [Moles/Vol] 86 mmol/L Low 98-108 [place] Emergency Department Summary on 02-05-2025 Emergency Department Summary [facility] Medical Records Department [address] [place] [address] Emergency Department Summary 02/05/25 MR#: [id number] Acct: [id number] Name: UNA COSBY Rep #: [id number] : 1995 29 From: Babita Rivera DO PCP: Care Physician,No Primary Status:ADM IN Location: ICU [id number] HPI History of Present Illness Chief Complaint: [...] He denies fevers or chills or sweats. [facility] Medical History (Updated 02/05/25 @ 03:43 [...] sounds Ca (more content not included)... Normal [facility] Eosinophil percentageOrdered By: White on 02-05-2025 Eosinophils/100 WBC (Bld) 4.2 % 0- [facility] Eosinophil percentageOrdered By: Remus Ungur on 02-05-2025 Eosinophils/100 WBC (Bld) 3.4 % 0- [facility] Erythrocyte distribution wid th ratioOrdered By: White on 02-05-2025 Erythrocyte distribution width (RBC) [Ratio] 16.2 % High 11.6-14.6 [facility] Erythrocyte distribution wid th ratioOrdered By: Remus Ungur on 02-05-2025 Erythrocyte distribution width (RBC) [Ratio] 16.2 % High 11.6-14.6 [facility] Erythrocyte distribution wid th standard deviationOrdered By: Sarah Oh on 02-05-2025 Erythrocyte distribution width (RBC) [Ratio] 44.2 fl High 35.1-43.9 [facility] Erythrocyte distribution wid th standard deviationOrdered By: Babita Rivera on 02-05-2025 Erythrocyte distribution width (RBC) [Ratio] 45.2 fl High 35.1-43.9 [facility] Glomerular filtration rate ( GFR) estimation/1.73 sq m using serum, plasma, or whole bOrdered By: Sarah Oh on 02-05-2025 GFR/1.73 sq M.predicted among non-blacks MDRD (S/P/Bld) [Vol rate/Area] 142 mL/min/{1.73_m2} >60 [facility] Comment on above: mL/min/1.73m2 CKD-EP I Creatinine Equation (2020) Glomerular filtration rate ( GFR) estimation/1.73 sq m using serum, plasma, or whole bOrdered By: Babita Rivera on 02-05-2025 GFR/1.73 sq M.predicted among non-blacks MDRD (S/P/Bld) [Vol rate/Area] 110 mL/min/{1.73_m2} >60 [facility] Comment on above: mL/min/1.73m2 CKD-EP I Creatinine Equation (2020) [facility]dered By: Alo Zambrano on 02-05-2025 Glucose [Mass/Vol] 138 mg/dL High 74-106 [facility] Comment on above: MANAGEMENT OF PATIEN T CARE PER NURSING PROTOCOL [facility] deOrdered By: Sarah Oh on 02-05-2025 Glucose [Mass/Vol] 430 mg/dL High 74-106 [facility] Comment on above: MANAGEMENT OF PATIEN T CARE PER NURSING PROTOCOL H AND P Exam - Hospital[facility] 02-05-2025 H&P Exam - Hospitalist [facility] Medical Records Department [address] [place] [address] H P Exam - Hospitalist 02/05/25 0343 MR#: [id number] Acct: [id number] Name: UNA COSBY Rep #: [id number] : 1995 29 From: Sarah Oh MD PCP: Care Physician,No Primary Status:ADM IN Location: ICU [id number] HPI - General General Date of Admission: 02/05/25 Date of Service: 02/05/25 Chief Complaint: N/V, elevated BS. 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 [facility] Medical History Noncompliance with medication regimen Anxiety [...] Examination: Gene (more content not included)... Normal [facility] Hematocrit Auto (Bld) [Volum e fraction]Ordered By: Sarah Oh on 02-05-2025 Hematocrit (Bld) [Volume fraction] 32.5 % Low 4054 [facility] Hematocrit Auto (Bld) [Volum e fraction]Ordered By: Babita Rivera on 02-05-2025 Hematocrit (Bld) [Volume fraction] 39.3 % Low 4054 [facility] Hemoglobin A1con 02-05-2025 HbA1c (Bld) [Mass fraction] 15.5 % High <=5.6 [facility] Comment on above: Result Comment: Norm al < 5.7 % Prediabetic 5.7 - 6.4 % Diabetic >or= 6.5 % Please note range changes. Performed By: #### L 100.0100, L501.9985 ####[facility] [address] [place], [place], [address] Hemoglobin A1c percentageOrd ered By: Sarah Oh on 02-05-2025 HbA1c (Bld) [Mass fraction] 15.5 % High <5.7 [facility] Comment on above: Normal < 5.7 % Predi abetic 5.7 - 6.4 % Diabetic >or= 6.5 % Please note range changes. Hemoglobin measurementOrdere d By: Sarah Oh on 02-05-2025 Hemoglobin (Bld) [Mass/Vol] 10.4 g/dL Low 13.0-16.5 [facility] Hemoglobin measurementOrdere d By: Babita Rivera on 02-05-2025 Hemoglobin (Bld) [Mass/Vol] 12.3 g/dL Low 13.0-16.5 [facility] Immature granulocytes/100 WB C Auto (Bld)Ordered By: Sarah Oh on 02-05-2025 Immature granulocytes/100 WBC (Bld) 0.300 % 0.0-0.9 [facility] Comment on above: IG% - Immature Granu locytes (promyelocytes, myelocytes and metamyelocytes) > 1% indicates that a LEFT SHIFT is Present. Immature granulocytes/100 WB C Auto (Bld)Ordered By: Babita Rivera on 02-05-2025 Immature granulocytes/100 WBC (Bld) 0.200 % 0.0-0.9 [facility] Comment on above: IG% - Immature Granu locytes (promyelocytes, myelocytes and metamyelocytes) > 1% indicates that a LEFT SHIFT is Present. Ketones Test strip Ql (U)Ord ered By: Babita Rivera on 02-05-2025 Ketones Ql (U) 150 mg/dl Abnormal Negative [facility] Comment on above: CRITICAL VALUE *HCRI TICAL VALUE CALLED TO [id number]/30/25 0443 Serafin Bell.RESULTS READ BACK BY SAME. M8200.1000on 02-05-2025 M8200.1000 Normal Reference Ran ge = Negative MRSA DNA Nose Ql LM+probe GeneXpert Instrument, PCR method MRSA PCR MRSA NEGATIVE Normal [facility] Comment on above: Performed By: #### M 8200.1000 ####[facility] [address] [place], [place], [id number] MCV (mean corpuscular volume ) determinationOrdered By: Sarah Oh on 02-05-2025 MCV (RBC) [Entitic vol] 75.8 fL Low 80-94 [facility] MCV (mean corpuscular volume ) determinationOrdered By: Babita Rivera on 02-05-2025 MCV (RBC) [Entitic vol] 76.6 fL Low 80-94 [facility] Magnesiumon 02-05-2025 Magnesium [Mass/Vol] 1.9 mg/dL Normal 1.5-2.2 [place] Comment on above: Order Comment: Comme nts: may add to ED labs Performed By: #### L 100.0100 #### [facility] [address] [place], [place], [id number] Magnesium measurement (mass/ volume)Ordered By: Sarah Oh on 02-05-2025 Magnesium (Unsp spec) [Mass/Vol] 1.9 mg/dL 1.5-2.2 [facility] Mean corpuscular hemoglobin (MCH) determinationOrdered By: Sarah White on 02-05-2025 MCH (RBC) [Entitic mass] 24.2 pg Low 27.0-32.0 [facility] Mean corpuscular hemoglobin (MCH) determinationOrdered By: Babita Rivera on 02-05-2025 MCH (RBC) [Entitic mass] 24.0 pg Low 27.0-32.0 [facility] Mean corpuscular hemoglobin concentration (MCHC) determinationOrdered By: Sarah White on 02-05-2025 MCHC (RBC) [Mass/Vol] 32.0 g/dL 32-36 [facility] Mean corpuscular hemoglobin concentration (MCHC) determinationOrdered By: Babita Rivera on 02-05-2025 MCHC (RBC) [Mass/Vol] 31.3 g/dL Low 32-36 [facility] Mean platelet volume determi nationOrdered By: Sarah Oh on 02-05-2025 Platelet mean volume (Bld) [Entitic vol] 10.8 fL 6.2-12.0 [facility] Mean platelet volume determi nationOrdered By: Babita Rivera on 02-05-2025 Platelet mean volume (Bld) [Entitic vol] 11.4 fL 6.2-12.0 [facility] Microscopic analysis of urin e for red blood cells (RBC)Ordered By: Babita Rivera on 02-05-2025 Microscopic analysis of urine for red blood cells (RBC) 0-5 SEEN /hpf 0-5 [facility] Monocyte percentageOrdered B y: Sarah White on 02-05-2025 Monocytes/100 WBC (Bld) 8.5 % 0-10 [facility] Monocyte percentageOrdered B y: Babita Rivera on 02-05-2025 Monocytes/100 WBC (Bld) 9.0 % 0-10 [facility] Mucus LM Ql (Urine sed)Order ed By: Babita Rivera on 02-05-2025 Mucus Ql (Urine sed) 0 SEEN /hpf [facility] Nasal methicillin resistant Staphylococcus aureus (MRSA) DNA detection by PCROrdered By: Sarah Oh on 02-05-2025 MRSA DNA LM+probe Ql (Nose) [facility] Neutrophil percentageOrdered By: Sarah White on 02-05-2025 Neutrophils/100 WBC (Bld) 52.3 % 47-70 [facility] Neutrophil percentageOrdered By: Babita Ungrowan on 02-05-2025 Neutrophils/100 WBC (Bld) 55.6 % 47-70 [facility] Nucleated red blood cell per centageOrdered By: Sarah White on 02-05-2025 Nucleated RBC/100 WBC (Bld) [Ratio] 0 % 0-5 [facility] Nucleated red blood cell per centageOrdered By: Babita Ungur on 02-05-2025 Nucleated RBC/100 WBC (Bld) [Ratio] 0 % 0-5 [facility] Phosphoruson 02-05-2025 Phosphate [Mass/Vol] 4.6 mg/dL High 2.7-4.5 [place] Comment on above: Order Comment: Comme nts: May add to ED labs Performed By: #### L 100.0100 #### [facility] [address] [place], [address] Platelet countOrdered By: Jaimie Oh on 02-05-2025 Platelets (Bld) [#/Vol] 297 10*3/uL 150-450 [facility] Platelet countOrdered By: Cata Rivera on 02-05-2025 Platelets (Bld) [#/Vol] 344 10*3/uL 150-450 [facility] Potassium measurement (mass/ volume)Ordered By: Sarah Oh on 02-05-2025 Potassium (Unsp spec) [Mass/Vol] 3.4 mmol/L 3.3-5.1 [facility] Potassium measurement (mass/ volume)Ordered By: Babita Rivera on 02-05-2025 Potassium (Unsp spec) [Mass/Vol] 4.5 mmol/L 3.3-5.1 [facility] Protein Test strip Ql (U)Ord ered By: Babita Rivera on 02-05-2025 Protein Ql (U) 30 mg/dl High Negative [facility] RBC Auto (Bld) [#/Vol]Ordere d By: Sarah White on 02-05-2025 RBC (Bld) [#/Vol] 4.29 10*6/uL Low 4.6-6.2 [facility] RBC Auto (Bld) [#/Vol]Ordere d By: Babita Rivera on 02-05-2025 RBC (Bld) [#/Vol] 5.13 10*6/uL 4.6-6.2 [facility] Serum creatinine measurement (mass/volume)Ordered By: Sarah Oh on 02-05-2025 Creatinine [Mass/Vol] 0.51 mg/dL Low 0.70-1.20 [facility] Serum creatinine measurement (mass/volume)Ordered By: Babita Rivera on 02-05-2025 Creatinine [Mass/Vol] 0.97 mg/dL 0.70-1.20 [facility] Serum glucose measurement (m ass/volume)Ordered By: Sarah Oh on 02-05-2025 Glucose [Mass/Vol] 170 mg/dL High 70-99 [facility] Serum glucose measurement (m ass/volume)Ordered By: Babita Rivera on 02-05-2025 Glucose [Mass/Vol] 736 mg/dL High 70-99 [facility] Comment on above: Critical Result(s) C alled at: 02/05/2025-03:34 by: Koko Oh to Casimiro Cast. Results read back by same. Serum or plasma calcium koby urement (mass/volume)Ordered By: Sarah Oh on 02-05-2025 Calcium [Mass/Vol] 7.7 mg/dL 7.6-11.0 [facility] Serum or plasma calcium koby urement (mass/volume)Ordered By: Babita Rivera on 02-05-2025 Calcium [Mass/Vol] 10.0 mg/dL 7.6-11.0 [facility] Serum or plasma urea nitroge n measurement (mass/volume)Ordered By: Sarah Oh on 02-05-2025 Urea nitrogen [Mass/Vol] 10 mg/dL 11-25 [facility] Serum or plasma urea nitroge n measurement (mass/volume)Ordered By: Babita Rivera on 02-05-2025 Urea nitrogen [Mass/Vol] 19 mg/dL 11-25 [facility] Sodium levelOrdered By: Edwin Oh on 02-05-2025 Sodium [Moles/Vol] 137 mmol/L 133-145 [facility] Sodium levelOrdered By: Amelia radha Anuragrowan on 02-05-2025 Sodium [Moles/Vol] 128 mmol/L Low 133-145 [facility] Squamous epithelial cells de tection in urine sediment by light microscopyOrdered By: Babita Anuragrowan on 02-05-2025 Epithelial cells.squamous LM Ql (Urine sed) 0 SEEN /hpf 0-5 [facility] Urinalysis, Completeon 02-05 KETONE UR 150 mg/dl Abnormal Negative [facility] Comment on above: Order Comment: CLEAN CATCH Result Comment: CRIT ICAL VALUE *H CRITICAL VALUE CALLED TO GWYKOFF 02/05/25 0443 Serafin Bell. RESULTS READ BACK BY SAME. Performed By: #### L 100.0100 #### [facility] [address] [place], [address] RBC 0-5 SEEN Normal 0-5 [facility] Comment on above: Order Comment: CLEAN CATCH Performed By: #### L 100.0100 #### [facility] [address] [place], [address] BILIRUBIN URINE Negative Normal Negative [facility] Comment on above: Order Comment: CLEAN CATCH Performed By: #### L 100.0100 #### [facility] [address] [place], [address] GLUCOSE, UR 1000 mg/dl Abnormal Normal [facility] Comment on above: Order Comment: CLEAN CATCH Performed By: #### L 100.0100 #### [facility] [address] [place], [address] LEUK ESTERASE Negative Normal Negative [facility] Comment on above: Order Comment: CLEAN CATCH Performed By: #### L 100.0100 #### [facility] [address] [place], [address] OCCULT BLOOD-UR 25 /ul Abnormal Negative [facility] Comment on above: Order Comment: CLEAN CATCH Performed By: #### L 100.0100 #### [facility] [address] [place], [address] pH UR 6.0 Normal 5.0 - 8.0 [facility] Comment on above: Order Comment: CLEAN CATCH Performed By: #### L 100.0100 #### [facility] [address] [place], [address] PROT DIPSTX 30 mg/dl Abnormal Negative [facility] Comment on above: Order Comment: CLEAN CATCH Performed By: #### L 100.0100 #### [facility] [address] [place], [address] SP.GR. DIPSTX 1.010 Normal 1.002-1.03 0 [facility] Comment on above: Order Comment: CLEAN CATCH Performed By: #### L 100.0100 #### [facility] [address] [place], [address] UROBILI Normal Normal Normal [facility] Comment on above: Order Comment: CLEAN CATCH Performed By: #### L 100.0100 #### [facility] [address] [place], [address] BACTERIA 0 SEEN Normal None Seen [facility] Comment on above: Order Comment: CLEAN CATCH Performed By: #### L 100.0100 #### [facility] [address] [place], [address] EPI,SQUAMOUS 0 SEEN Normal 0-5 [facility] Comment on above: Order Comment: CLEAN CATCH Performed By: #### L 100.0100 #### [facility] [address] [place], [address] Mucus Ql (Urine sed) 0 SEEN Normal [place] Comment on above: Order Comment: CLEAN CATCH Performed By: #### L 100.0100 #### [facility] [address] [place], [address] WBC 0 SEEN Normal 0-5 [facility] Comment on above: Order Comment: CLEAN CATCH Performed By: #### L 100.0100 #### [facility] [address] [place], [place], [id number] Urine clarityOrdered By: Rem us Rivera on 02-05-2025 Clarity (U) Clear Normal Clear [facility] Comment on above: Order Comment: CLEAN CATCH Performed By: #### L 100.0100 #### [facility] [address] [place], [place], [id number] Urine color determinationOrd ered By: Babita Rivera on 02-05-2025 Color (U) Straw Normal Yellow [facility] Comment on above: Order Comment: CLEAN CATCH Performed By: #### L 100.0100 #### [facility] [address] [place], [place], [id number] Urine glucose detectionOrder ed By: Babita Rivera on 02-05-2025 Glucose Ql (U) 1000 mg/dl High Normal [facility] Urine leukocyte esterase det ection by dipstickOrdered By: Babita Rivera on 02-05-2025 Leukocyte esterase Test strip Ql (U) Negative Negative [facility] Urine nitrite test by dipsti ckOrdered By: Remus Miguel on 02-05-2025 Nitrite Ql (U) Negative Normal Negative [facility] Comment on above: Order Comment: CLEAN CATCH Performed By: #### L 100.0100 #### [facility] [address] [place], [place], [id number] Urine pHOrdered By: Babita Beyer gur on 02-05-2025 pH (U) 6.0 [pH] 5.0 - 8.0 [facility] Urine sediment bacteria coun t by microscopy (number/high power field)Ordered By: Babita Rivera on 02-05-2025 Bacteria LM.HPF (Urine sed) [#/Area] 0 /[HPF] None Seen [facility] Urine specific gravity measu rementOrdered By: Babita Rivera on 02-05-2025 Specific gravity (U) [Rel density] 1.010 1.002-1.03 0 [facility] Urine urobilinogen measureme ntOrdered By: Babita Rivera on 02-05-2025 Urobilinogen Ql (U) Normal mg/dl Normal [facility] White blood cell (WBC) count Ordered By: Sarah Oh on 02-05-2025 WBC (Bld) [#/Vol] 13.1 10*3/uL High 4.4-11.0 [facility] White blood cell (WBC) count Ordered By: Babita Rivera on 02-05-2025 WBC (Bld) [#/Vol] 13.0 10*3/uL High 4.4-11.0 [facility] White blood cell countOrdere d By: Babita Rivera on 02-05-2025 White blood cell count 0 SEEN /hpf 0-5 [facility] 12 Lead EKGon 01-26-2025 12 Lead E[address] [facility] Cardiovascular Services [address] [place] [address] 12 Lead EKG 01/26/25 1141 MR#: [id number] Acct: [id number] Name: UNA COSBY Rep #: [id number] : 1995 29 From: Doyle Morales MD [...] enlargement Borderline ECG Confirmed by Doyle Morales ([id number]), assistant editor COREY MICHAEL ([id number]) on 01/30/2025 12:47:37 PM Referred By: Confirmed By: Doyle Morales 01/30/25 1247 Date Doyle Morales MD CC: Dr. Keisha Handy DO; No Primary Care Physician Signed Normal [facility] Absolute lymphocyte countOrd ered By: Beverly Ca on 01-26-2025 Lymphocytes Auto (Unsp spec) [#/Vol] 3.02 10*3/uL 0.83-4.51 [facility] Absolute neutrophil countOrd ered By: Beverly Ca on 01-26-2025 Neutrophils (Bld) [#/Vol] 6.1 10*3/uL 2.0-7.7 [facility] Amphetamine detection with 1 000 ng/mL as cutoffOrdered By: Beverly Ca on 01-26-2025 Amphetamines Screen method >1000 ng/mL Ql (U) Negative < 200 ng/mL [facility] Anion gap in Serum or Plasma Ordered By: Beverly Ca on 01-26-2025 Anion gap [Moles/Vol] 13 mmol/L 5- [facility] Automated lymphocyte count a s percentage of total leukocytesOrdered By: Beverly Ca on 01-26-2025 Lymphocytes/100 WBC Auto (Unsp spec) 28.9 % - [facility] BUN/creatinine ratioOrdered By: Beverly Ca on 01-26-2025 Urea nitrogen/Creatinine [Mass ratio] 28.2 mg/mg High 05-28 [facility] Basic Metabolic Profile (BMP )on 01-26-2025 BUN/CRE 28.2 RATIO High [facility] Comment on above: Performed By: #### L 500.2500 #### [facility] [address] [place], [address] Calcium [Mass/Vol] 8.7 mg/dL Normal 7.6-11.0 [facility] Comment on above: Performed By: #### L 500.2500 #### [facility] [address] [place], [address] Chloride [Moles/Vol] 98 mmol/L Normal 98-108 [place] Comment on above: Performed By: #### L 500.2500 #### [facility] [address] [place], [address] CO2 [Moles/Vol] 22.8 mmol/L Normal 21.0-32.0 [facility] Comment on above: Performed By: #### L 500.2500 #### [facility] [address] [place], [address] Creatinine [Mass/Vol] 0.65 mg/dL Low 0.70-1.20 [facility] Comment on above: Performed By: #### L 500.2500 #### [facility] [address] [place], [address] ECRCL 150.26 ml/min Normal 50-250 [facility] Comment on above: Performed By: #### L 500.2500 #### [facility] [address] [place], [address] GAP 13 Normal 5-15 [facility] Comment on above: Performed By: #### L 500.2500 #### [facility] [address] [place], [address] GFR/1.73 sq M.predicted among non-blacks MDRD (S/P/Bld) [Vol rate/Area] 132 mL/min/{1.73_m2} Normal >60 [facility] Comment on above: Result Comment: mL/m in/1.73m2 CKD-EPI Creatinine Equation (2020) Performed By: #### L 500.2500 #### [facility] [address] [place], [address] Glucose [Mass/Vol] 484 mg/dL Invalid Interpretation Code 70-99 [facility] Comment on above: Result Comment: Crit ical Result(s) Called at: 01/26/2025-12:56 by: Koko Oh to Ge Long.??Results read back by same. Performed By: #### L 500.2500 #### [facility] [address] [place], [address] Potassium [Moles/Vol] 4.3 mmol/L Normal 3.3-5.1 [facility] Comment on above: Performed By: #### L 500.2500 #### [facility] [address] [place], [address] Sodium [Moles/Vol] 133 mmol/L Normal 133-145 [facility] Comment on above: Performed By: #### L 500.2500 #### [facility] [address] [place], [address] Urea nitrogen [Mass/Vol] 18 mg/dL Normal 4-19 [facility] Comment on above: Performed By: #### L 500.2500 #### [facility] [address] [place], [address] Basophil percentageOrdered B y: Beverly Medinaashlynier on 01-26-2025 Basophils/100 WBC (Bld) 0.6 % 0-1 [facility] Bedside Glucoseon 01-26-2025 FINGERSTICK GLU 189 mg/dL High 74-106 [facility] Comment on above: Result Comment: TEJAL GEMENT OF PATIENT CARE PER NURSING PROTOCOL Performed By: #### L 501.080 ####[facility] [id number] [place], [address] FINGERSTICK GLU 290 mg/dL High [address] [place] [address] Comment on above: Result Comment: TEJAL GEMENT OF PATIENT CARE PER NURSING PROTOCOL Performed By: #### L 500.2500 #### [facility] [address] [place], [address] FINGERSTICK GLU 475 mg/dL Invalid Interpretation Code 74-106 [facility] Comment on above: Result Comment: Dr Erica egan Followed MANAGEMENT OF PATIENT CARE PER NURSING PROTOCOL Performed By: #### L 500.2500 #### [facility] [address] [place], [address] FINGERSTICK GLU 427 mg/dL High [address] [place] [address] Comment on above: Result Comment: TEJAL GEMENT OF PATIENT CARE PER NURSING PROTOCOL Performed By: #### L 100.0100 #### [facility] [address] [place], [address] Beta-Hydroxbytyrateon 2024 BETA-HYDROXYBUT 1.1 mmol/L High 0.0-0.3 [facility] Comment on above: Performed By: #### L 500.2500 #### [facility] [address] [place], [address] Beta-hydroxybutyrateOrdered By: Beverly Ca on 01-26-2025 Beta hydroxybutyrate [Mass/Vol] 1.1 mmol/L High 0.0-0.3 [facility] CBC W/Diff, Automatedon 01-08-2024 Absolute Lymph 3.02 X10 3/uL Normal 0.83-4.51 [facility] Comment on above: Performed By: #### L 500.2500 #### [facility] [address] [place], [address] Absolute Neut 6.1 X10 3/uL Normal 2.0-7.7 [facility] Comment on above: Performed By: #### L 500.2500 #### [facility] [address] [place], [address] Basophils/100 WBC (Bld) 0.6 % Normal 0-1 [facility] Comment on above: Performed By: #### L 500.2500 #### [facility] [address] [place], [address] Eosinophils/100 WBC (Bld) 5.1 % High 0-5 [facility] Comment on above: Performed By: #### L 500.2500 #### [facility] [address] [place], [address] Erythrocyte distribution width (RBC) [Ratio] 15.8 % High 11.6-14.6 [facility] Comment on above: Performed By: #### L 500.2500 #### [facility] [address] [place], [address] Hematocrit (Bld) [Volume fraction] 38.7 % Low 40-54 [facility] Comment on above: Performed By: #### L 500.2500 #### [facility] [address] [place], [address] Hemoglobin (Bld) [Mass/Vol] 12.4 g/dL Low 13.0-16.5 [facility] Comment on above: Performed By: #### L 500.2500 #### [facility] [address] [place], [address] IG% 0.300 Normal 0.0-0.9 [facility] Comment on above: Result Comment: IG% - Immature Granulocytes (promyelocytes, myelocytes and metamyelocytes) > 1% indicates that a LEFT SHIFT is Present. Performed By: #### L 500.2500 #### [facility] [place], [address] Lymphocytes/100 WBC (Bld) 28.9 % Normal 19-41 [facility] Comment on above: Performed By: #### L 500.2500 #### [facility] [address] [place], [address] MCH (RBC) [Entitic mass] 24.1 pg Low 27.0-32.0 [facility] Comment on above: Performed By: #### L 500.2500 #### [facility] [address] [place], [address] MCHC (RBC) [Mass/Vol] 32.0 g/dL Normal 32-36 [facility] Comment on above: Performed By: #### L 500.2500 #### [facility] [address] [place], [address] MCV (RBC) [Entitic vol] 75.1 fL Low 80-94 [facility] Comment on above: Performed By: #### L 500.2500 #### [facility] [address] [place], [address] Monocytes/100 WBC (Bld) 6.8 % Normal 0-10 [facility] Comment on above: Performed By: #### L 500.2500 #### [facility] [address] [place], [address] Neutrophils/100 WBC (Bld) 58.3 % Normal 47-70 [facility] Comment on above: Performed By: #### L 500.2500 #### [facility] [address] [place], [address] Nucleated RBC (Bld) [#/Vol] 0 10*3/uL Normal 0-5 [facility] Comment on above: Performed By: #### L 500.2500 #### [facility] [place], [address] Platelet mean volume (Bld) [Entitic vol] 10.8 fL Normal 6.2-12.0 [facility] Comment on above: Performed By: #### L 500.2500 #### [facility] [address] [place], [address] Platelets (Bld) [#/Vol] 328 10*3/uL Normal 150-450 [facility] Comment on above: Performed By: #### L 500.2500 #### [facility] [address] [place], [address] RBC (Bld) [#/Vol] 5.15 10*6/uL Normal 4.6-6.2 [facility] Comment on above: Performed By: #### L 500.2500 #### [facility] [address] [place], [address] RDW SD 42.6 fl Normal 35.1-43.9 [facility] Comment on above: Performed By: #### L 500.2500 #### [facility] [address] [place], [address] WBC (Bld) [#/Vol] 10.4 10*3/uL Normal 4.4-11.0 [facility] Comment on above: Performed By: #### L 500.2500 #### [facility] [address] [place], [address] CO2 (BldV) [Moles/Vol]Ordere d By: Keisha Handy on 01-26-2025 CO2 [Moles/Vol] 29 mmol/L 23-33 [facility] Carbon dioxide, total [Moles /volume] in Central venous bloodOrdered By: Beverly Ca on 01-26-2025 CO2 [Moles/Vol] 22.8 mmol/L 21.0-32.0 [facility] Chest PA and Lateralon 01-26 Chest PA and Lateral [facility] Imaging Services [address] [place], [place] [address] Chest PA and Lateral MR#: [id number] Acct: [id number] Name: UNA COSBY Rep #: [id number] : 1995 M 29 From: David stearns MD PCP: Care Physician,No Primary Status: [facility] ER Study: Chest PA and Lateral Date of Exam: 01/26/25 Exam# [id number] Ordering Dr: Beverly Ca PROCEDURE: CHEST PA AND LATERAL 01/26/2025 REASON FOR EXAM: CHEST PAIN TECHNIQUE: CHEST PA AND LATERAL COMPARISON: Prior study dated October 19, 2024. FINDINGS: Hardware: EKG electrodes. Heart: Unremarkable Mediastinum: The mediastinal contour is unremarkable. Lungs: The lungs are clear. Bones: The bones are unremarkable. RAD/Chest PA and Lateral IMPRESSION: NO ACUTE FINDINGS. 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 Performed By: #### L 500.2500 #### [facility] [address] [place], [address] Emergency Department Summary on 01-26-2025 Emergency Department Summary [facility] Medical Records Department [address] [facility] [address] [facility] [place] [address] Emergency Department Summary 01/26/25 MR#: [id number] Acct: [id number] Name: UNA COSBY Rep #: [id number] : 1995 29 From: Beverly [place] PCP: [...] use. Denies history of CAD or DVT/PE. [facility] Medical History Learning difficulty due to [...] Respiratory Effo (more content not included)... Normal [facility] Eosinophil percentageOrdered By: Beverly Ca on 01-26-2025 Eosinophils/100 WBC (Bld) 5.1 % High 0-5 [facility] Erythrocyte distribution wid th ratioOrdered By: Bevelry Ca on 01-26-2025 Erythrocyte distribution width (RBC) [Ratio] 15.8 % High 11.6-14.6 [facility] Erythrocyte distribution wid th standard deviationOrdered By: Beverly Ca on 01-26-2025 Erythrocyte distribution width (RBC) [Ratio] 42.6 fl 35.1-43.9 [facility] Glomerular filtration rate ( GFR) estimation/1.73 sq m using serum, plasma, or whole bOrdered By: Beverly Ca on 01-26-2025 GFR/1.73 sq M.predicted among non-blacks MDRD (S/P/Bld) [Vol rate/Area] 132 mL/min/{1.73_m2} >60 [facility] Comment on above: mL/min/1.73m2 CKD-EP I Creatinine Equation (2020) Glucose measurement at bedsi deOrdered By: Keisha Handy on 01-26-2025 Glucose [Mass/Vol] 189 mg/dL High 74-106 [facility] Comment on above: MANAGEMENT OF PATIEN T CARE PER NURSING PROTOCOL Hematocrit Auto (Bld) [Volum e fraction]Ordered By: Beverly Ca on 01-26-2025 Hematocrit (Bld) [Volume fraction] 38.7 % Low 40-54 [facility] Hemoglobin measurementOrdere d By: Beverly Ca on 01-26-2025 Hemoglobin (Bld) [Mass/Vol] 12.4 g/dL Low 13.0-16.5 [facility] Immature granulocytes/100 WB C Auto (Bld)Ordered By: Beverly Ca on 01-26-2025 Immature granulocytes/100 WBC (Bld) 0.300 % 0.0-0.9 [facility] Comment on above: IG% - Immature Granu locytes (promyelocytes, myelocytes and metamyelocytes) > 1% indicates that a LEFT SHIFT is Present. L501.4021on 01-26-2025 Trop T High Sen 15 ng/L Normal <=22 [facility] Comment on above: Performed By: #### L 501.6901 #### [facility] [address] [place], [address] MCV (mean corpuscular volume ) determinationOrdered By: Beverly Ca on 01-26-2025 MCV (RBC) [Entitic vol] 75.1 fL Low 80-94 [facility] Mean corpuscular hemoglobin (MCH) determinationOrdered By: Beverly Ca on 01-26-2025 MCH (RBC) [Entitic mass] 24.1 pg Low 27.0-32.0 [facility] Mean corpuscular hemoglobin concentration (MCHC) determinationOrdered By: Beverly Ca on 01-26-2025 MCHC (RBC) [Mass/Vol] 32.0 g/dL 32-36 [facility] Mean platelet volume determi nationOrdered By: Beverly Ca on 01-26-2025 Platelet mean volume (Bld) [Entitic vol] 10.8 fL 6.2-12.0 [facility] Monocyte percentageOrdered B y: Beverly Ca on 01-26-2025 Monocytes/100 WBC (Bld) 6.8 % 0-10 [facility] Neutrophil percentageOrdered By: Beverly Ca on 01-26-2025 Neutrophils/100 WBC (Bld) 58.3 % 47-70 [facility] No Panel InformationOrdered By: Beverly Ca on 01-26-2025 Urine Buprenorphine Qualitative Negative < 200 ng/mL [facility] Urine Oxycodone Screen Negative < 100 ng/mL [facility] No Panel InformationOrdered By: Keisha Handy on 01-26-2025 Blood Gas Sample Site Not entered [facility] Blood Gas Specimen Type JAIDEN [facility] Oxygen Delivery Device Not entered [facility] Nucleated red blood cell per centageOrdered By: Beverly Ca on 01-26-2025 Nucleated RBC/100 WBC (Bld) [Ratio] 0 % 0-5 [facility] Platelet countOrdered By: Katarina Ca on 01-26-2025 Platelets (Bld) [#/Vol] 328 10*3/uL 150-450 [facility] Potassium measurement (mass/ volume)Ordered By: Beverly Ca on 01-26-2025 Potassium (Unsp spec) [Mass/Vol] 4.3 mmol/L 3.3-5.1 [facility] Quantitative urine opiates m easurementOrdered By: Beverly Ca on 01-26-2025 Opiates Ql (U) Negative < 300 ng/mL [facility] RBC Auto (Bld) [#/Vol]Ordere d By: Beverly Ca on 01-26-2025 RBC (Bld) [#/Vol] 5.15 10*6/uL 4.6-6.2 [facility] Screening urine fentanyl yaya surementOrdered By: Beverly Ca on 01-26-2025 fentaNYL Screen Ql (U) Negative [facility] Serum creatinine measurement (mass/volume)Ordered By: Beverly Ca on 01-26-2025 Creatinine [Mass/Vol] 0.65 mg/dL Low 0.70-1.20 [facility] Serum glucose measurement (m ass/volume)Ordered By: Beverly Ca on 01-26-2025 Glucose [Mass/Vol] 484 mg/dL High 70-99 [facility] Comment on above: Critical Result(s) C alled at: 01/26/2025-12:56 by: Koko Oh to Ge Long. Results read back by same. Serum or plasma calcium koby urement (mass/volume)Ordered By: Beverly Ca on 01-26-2025 Calcium [Mass/Vol] 8.7 mg/dL 7.6-11.0 [facility] Serum or plasma urea nitroge n measurement (mass/volume)Ordered By: Beverly Ca on 01-26-2025 Urea nitrogen [Mass/Vol] 18 mg/dL 4-19 [facility] Sodium levelOrdered By: Beverly Ca on 01-26-2025 Sodium [Moles/Vol] 133 mmol/L 133-145 [facility] TSH DL <= 0.005 mIU/L QnOrde red By: Beverly Ca on 01-26-2025 TSH Qn 2.430 uIU/mL 0.300-4.20 0 [facility] Thyroid Stim Hormone (TSH)on 01-26-2025 TSH 2.430 uIU/mL Normal 0.300-4.20 0 [facility] Comment on above: Performed By: #### L 500.2500 #### [facility] [address] [place], [address] Troponin T.cardiac [Mass/vol ume] in Serum or Plasma by High sensitivity methodOrdered By: Beverly Ca on 01-26-2025 Troponin T.cardiac High sensitivity method [Mass/Vol] 15 ng/L <22 [facility] Comment on above: Delta: 8 on 10/19/24 -23 Urine Drug Screen (VISTA)on 01-26-2025 AMPHETAMINES Negative Normal <1000 ng/mL [facility] Comment on above: Performed By: #### L 500.2500 #### [facility] [address] [place], [address] BARBITIURATES Negative Normal < 200 ng/mL [facility] Comment on above: Performed By: #### L 500.2500 #### [facility] [address] [place], [address] BENZODIAZIPINE Negative Normal < 200 ng/mL [facility] Comment on above: Performed By: #### L 500.2500 #### [facility] [address] [place], [address] BUP Ur Drug Scr Negative Normal < 200 ng/mL [facility] Comment on above: Performed By: #### L 500.2500 #### [facility] [address] [place], [address] COCAINE Negative Normal < 300 ng/mL [facility] Comment on above: Performed By: #### L 500.2500 #### [facility] [address] [place], [address] Fentanyl Negative Normal [facility] Comment on above: Performed By: #### L 500.2500 #### [facility] [address] [place], [address] METHADONE Negative Normal < 300 ng/mL [facility] Comment on above: Performed By: #### L 500.2500 #### [facility] [address] [place], [address] OPIATES Negative Normal < 300 ng/mL [facility] Comment on above: Performed By: #### L 500.2500 #### [facility] [address] [place], [address] OXYCODONE Negative Normal < 100 ng/mL [facility] Comment on above: Performed By: #### L 500.2500 #### [facility] [address] [place], [address] PCP Negative Normal < 25 ng/mL [facility] Comment on above: Performed By: #### L 500.2500 #### [facility] [address] [place], [address] THC Negative Normal < 50 ng/mL [facility] Comment on above: Performed By: #### L 500.2500 #### [facility] [address] [place], [address] Urine benzodiazepine levelOr dered By: Beverly Ca on 01-26-2025 Benzodiazepines Ql (U) Negative < 200 ng/mL [facility] Urine cocaine levelOrdered B y: Beverly Ca on 01-26-2025 Cocaine Ql (U) Negative < 300 ng/mL [facility] Urine mznov-4-fmomcvaksupftg abinol (THC) measurementOrdered By: Beverly Ca on 01-26-2025 Cannabinoids Screen Ql (U) Negative < 50 ng/mL [facility] Urine phencyclidine (PCP) de tectionOrdered By: Beverly Ca on 01-26-2025 Phencyclidine Ql (U) Negative < 25 ng/mL [place] Venous Blood Gason 5 Blood Gas Type JAIDEN Normal [facility] Comment on above: Performed By: #### L 500.2500 #### [facility] [address] [place], [address] CO2 [Moles/Vol] 29 mmol/L Normal 23-33 [facility] Comment on above: Performed By: #### L 500.2500 #### [facility] [address] [place], [address] HCO3 (Bld) [Moles/Vol] 27 mmol/L High 22-26 [facility] Comment on above: Performed By: #### L 500.2500 #### [facility] [address] [place], [address] O2 Delivery Dev Not entered Normal [facility] Comment on above: Performed By: #### L 500.2500 #### [facility] [address] [place], [address] SITE Not entered Normal [facility] Comment on above: Performed By: #### L 500.2500 #### [facility] [address] [place], [address] VBG BE 2 mmol/L Normal -1.0-3.5 [facility] Comment on above: Performed By: #### L 500.2500 #### [facility] [address] [place], [address] VBG pCO2 45.0 mmHg Normal 41-51 [facility] Comment on above: Performed By: #### L 500.2500 #### [facility] [address] [place], [place], [id number] VBG pH 7.39 Normal 7.32-7.42 [facility] Comment on above: Performed By: #### L 500.2500 #### [facility] [address] [place], [address] VBG PO2 51 mmHg High 25-40 [facility] Comment on above: Performed By: #### L 500.2500 #### [facility] [address] [place], [address] VBG SO2 85 High 50-70 [facility] Comment on above: Performed By: #### L 500.2500 #### [facility] [address] [place], [address] Venous blood base excess yaya surementOrdered By: Keisha Handy on 01-26-2025 Base excess Calc (BldV) [Moles/Vol] 2 mmol/L -1.0-3.5 [facility] Venous blood bicarbonate yaya surementOrdered By: Keisha Handy on 01-26-2025 HCO3 (Bld) [Moles/Vol] 27 mmol/L High 22-26 [facility] Venous blood oxygen saturati on measurementOrdered By: Keisha Handy on 01-26-2025 Oxygen saturation in Blood 85 % High 50-70 [facility] Venous blood pH measurementO rdered By: Keisha Handy on 01-26-2025 pH (BldV) 7.39 [pH] 7.32-7.42 [facility] Venous blood partial pressur e of carbon dioxide measurementOrdered By: Keisha Handy on 01-26-2025 CO2 (BldV) [Partial pressure] 45.0 mm[Hg] 41-51 [facility] Venous blood partial pressur e of oxygen measurementOrdered By: Keisha Handy on 01-26-2025 Oxygen (BldV) [Partial pressure] 51 mm[Hg] High 25-40 [facility] White blood cell (WBC) count Ordered By: Beverly Ca on 01-26-2025 WBC (Bld) [#/Vol] 10.4 10*3/uL 4.4-11.0 [facility] Anion gap in Serum or Plasma Ordered By: Juan Rivas on 12-14-2024 Anion gap [Moles/Vol] 9 mmol/L 12-21 [facility] BUN/creatinine ratioOrdered By: Juan Rivas on 12-14-2024 Urea nitrogen/Creatinine [Mass ratio] 16.2 mg/mg 05-28 [facility] Basic Metabolic Profile (BMP )on 12-14-2024 BUN/CRE 16.2 RATIO Normal 05-28 [facility] Comment on above: Performed By: #### L 500.2500 ####[facility] [address] [place], [address] Calcium [Mass/Vol] 7.8 mg/dL Normal 7.6-11.0 [facility] Comment on above: Performed By: #### L 500.2500 ####[facility] [address] [place], [address] Chloride [Moles/Vol] 103 mmol/L Normal 98-108 [place] Comment on above: Performed By: #### L 500.2500 ####[facility] [address] [place], [address] CO2 [Moles/Vol] 24.0 mmol/L Normal 21.0-32.0 [facility] Comment on above: Performed By: #### L 500.2500 ####[facility] [address] [place], [address] Creatinine [Mass/Vol] 0.64 mg/dL Low 0.70-1.20 [facility] Comment on above: Performed By: #### L 500.2500 ####[facility] [address] [place], [address] ECRCL 126.32 ml/min Normal 50-250 [facility] Comment on above: Performed By: #### L 500.2500 ####[facility] [address] [place], [address] GAP 9 Normal 5-15 [facility] Comment on above: Performed By: #### L 500.2500 ####[facility] [address] [place], [address] GFR/1.73 sq M.predicted among non-blacks MDRD (S/P/Bld) [Vol rate/Area] 133 mL/min/{1.73_m2} Normal >60 [facility] Comment on above: Result Comment: mL/m in/1.73m2 CKD-EPI Creatinine Equation (2020) Performed By: #### L 500.2500 ####[facility] [address] [place], [address] Glucose [Mass/Vol] 275 mg/dL High 70-99 [facility] Comment on above: Performed By: #### L 500.2500 ####[facility] [address] [place], [address] Potassium [Moles/Vol] 3.6 mmol/L Normal 3.3-5.1 [facility] Comment on above: Performed By: #### L 500.2500 ####[facility] [address] [place], [address] Sodium [Moles/Vol] 136 mmol/L Normal 133-145 [facility] Comment on above: Performed By: #### L 500.2500 ####[facility] [address] [place], [address] Urea nitrogen [Mass/Vol] 10 mg/dL Normal 4-19 [facility] Comment on above: Performed By: #### L 500.2500 ####[facility] [address] [place], [address] Bedside Glucoseon 12-14-2024 FINGERSTICK GLU 286 mg/dL High 74-106 [facility] Comment on above: Result Comment: TEJAL GEMENT OF PATIENT CARE PER NURSING PROTOCOL Performed By: #### L 501.080 ####[facility] [address] [place], [address] FINGERSTICK GLU 262 mg/dL High 74-106 [facility] Comment on above: Result Comment: TEJAL GEMENT OF PATIENT CARE PER NURSING PROTOCOL Performed By: #### L 501.6901 #### [facility] [address] [place], [address] FINGERSTICK GLU 337 mg/dL High 74-106 [facility] Comment on above: Result Comment: TEJAL GEMENT OF PATIENT CARE PER NURSING PROTOCOL Performed By: #### L 501.6901 #### [facility] [address] [place], [address] FINGERSTICK GLU 433 mg/dL High 74-106 [facility] Comment on above: Result Comment: TEJAL GEMENT OF PATIENT CARE PER NURSING PROTOCOL Performed By: #### L 500.2500 #### [facility] [address] [place], [address] Carbon dioxide, total [Moles /volume] in Central venous bloodOrdered By: Juan Rivas on 12-14-2024 CO2 [Moles/Vol] 24.0 mmol/L 21.0-32.0 [facility] Chloride assayOrdered By: Cesar Rivas on 12-14-2024 Chloride [Moles/Vol] 103 mmol/L 98-108 [place] Glomerular filtration rate ( GFR) estimation/1.73 sq m using serum, plasma, or whole bOrdered By: Juan Rivas on 12-14-2024 GFR/1.73 sq M.predicted among non-blacks MDRD (S/P/Bld) [Vol rate/Area] 133 mL/min/{1.73_m2} >60 [facility] Comment on above: mL/min/1.73m2 CKD-EP I Creatinine Equation (2020) [facility]dered By: Juan Rivas on 12-14-2024 Glucose [Mass/Vol] 286 mg/dL High 74-106 [facility] Comment on above: MANAGEMENT OF PATIEN T CARE PER NURSING PROTOCOL Potassium measurement (mass/ volume)Ordered By: Juan Rivas on 12-14-2024 Potassium (Unsp spec) [Mass/Vol] 3.6 mmol/L 3.3-5.1 [facility] Serum creatinine measurement (mass/volume)Ordered By: Juan Rivas on 12-14-2024 Creatinine [Mass/Vol] 0.64 mg/dL Low 0.70-1.20 [facility] Serum glucose measurement (m ass/volume)Ordered By: Juan Rivas on 12-14-2024 Glucose [Mass/Vol] 275 mg/dL High 70-99 [facility] Serum or plasma calcium koby urement (mass/volume)Ordered By: Juan Rivas on 12-14-2024 Calcium [Mass/Vol] 7.8 mg/dL 7.6-11.0 [facility] Serum or plasma urea nitroge n measurement (mass/volume)Ordered By: Juan Rivas on 12-14-2024 Urea nitrogen [Mass/Vol] 10 mg/dL 4-19 [facility] Sodium levelOrdered By: Sav Rivas on 12-14-2024 Sodium [Moles/Vol] 136 mmol/L 133-145 [facility] 12 Lead EKGon 12-13-2024 12 Lead E[address] [facility] Cardiovascular Services [address] [place] [address] 12 Lead EKG 12/13/242229 MR#: [id number] Acct: [id number] Name: UNA COSBY Rep #: [id number] : 1995 From: Doyle Morales MD Attending [...] Otherwise normal ECG Confirmed by Doyle Morales ([id number]), assistant editor DOMINIC KEENE ([id number]) on 12/15/2024 12:14:41 PM Referred By: Confirmed By: Doyle Morales 12/15/24 1214 Date Doyle Morales MD CC: Dr. Juan Rivas MD; No Primary Care Physician Signed Normal [facility] Absolute lymphocyte countOrd ered By: Juan Rivas on 12-13-2024 Lymphocytes Auto (Unsp spec) [#/Vol] 3.83 10*3/uL 0.83-4.51 [facility] Absolute neutrophil countOrd ered By: Juan Rivas on 12-13-2024 Neutrophils (Bld) [#/Vol] 6.1 10*3/uL 2.0-7.7 [facility] Automated lymphocyte count a s percentage of total leukocytesOrdered By: Juan Rivas on 12-13-2024 Lymphocytes/100 WBC Auto (Unsp spec) 33.9 % 19- [facility] Basic Metabolic Profile (BMP )on 12-13-2024 BUN/CRE 16.3 RATIO Normal 10- [facility] Comment on above: Performed By: #### L 501.6901, L500.2500 ####[facility] [address] [place], [address] Calcium [Mass/Vol] 9.0 mg/dL Normal 7.6-11.0 [facility] Comment on above: Performed By: #### L 501.6901, L500.2500 ####[facility] [address] [place], [address] Chloride [Moles/Vol] 90 mmol/L Low 98-108 [place] Comment on above: Performed By: #### L 501.6901, L500.2500 ####[facility] [address] [place], [address] CO2 [Moles/Vol] 27.2 mmol/L Normal 21.0-32.0 [facility] Comment on above: Performed By: #### L 501.6901, L500.2500 ####[facility] [address] [place], [address] Creatinine [Mass/Vol] 0.84 mg/dL Normal 0.70-1.20 [facility] Comment on above: Performed By: #### L 501.6901, L500.2500 ####[facility] [address] [place], [address] ECRCL 96.24 ml/min Normal 50-250 [facility] Comment on above: Performed By: #### L 501.6901, L500.2500 ####[facility] [address] [place], [address] GAP 12 Normal 5-15 [facility] Comment on above: Performed By: #### L 501.6901, L500.2500 ####[facility] [address] [place], [address] GFR/1.73 sq M.predicted among non-blacks MDRD (S/P/Bld) [Vol rate/Area] 123 mL/min/{1.73_m2} Normal >60 [facility] Comment on above: Result Comment: mL/m in/1.73m2 CKD-EPI Creatinine Equation (2020) Performed By: #### L 501.6901, L500.2500 ####[facility] [address] [place], [address] Glucose [Mass/Vol] 520 mg/dL Invalid Interpretation Code 70-99 [facility] Comment on above: Result Comment: Crit ical Result(s) Called at: 2248 by: WILLIAM HAVEN TO GE TENNENT??Results read back by same. Performed By: #### L 501.6901, L500.2500 ####[facility] [address] [place], [address] Potassium [Moles/Vol] 5.3 mmol/L High 3.3-5.1 [facility] Comment on above: Performed By: #### L 501.6901, L500.2500 ####[facility] [address] [place], [address] Sodium [Moles/Vol] 129 mmol/L Low 133-145 [facility] Comment on above: Performed By: #### L 501.6901, L500.2500 ####[facility] [address] [place], [address] Urea nitrogen [Mass/Vol] 14 mg/dL Normal 4-19 [facility] Comment on above: Performed By: #### L 501.6901, L500.2500 ####[facility] [address] [place], [address] Basophil percentageOrdered B y: Juan Rivas on 12-13-2024 Basophils/100 WBC (Bld) 0.6 % 0-1 [facility] Bedside Glucoseon 12-13-2024 FINGERSTICK GLU 490 mg/dL Invalid Interpretation Code 74-106 [facility] Comment on above: Result Comment: Dr Erica egan Followed MANAGEMENT OF PATIENT CARE PER NURSING PROTOCOL Performed By: #### L 500.2500 #### [facility] [address] [place], [address] Beta-Hydroxbytyrateon 2024 BETA-HYDROXYBUT 1.7 mmol/L Normal 0.0-0.3 [facility] Comment on above: Performed By: #### L 501.6901, L500.2500 ####[facility] [address], [address] Beta-hydroxybutyrateOrdered By: Juan Rivas on 12-13-2024 Beta hydroxybutyrate [Mass/Vol] 1.7 mmol/L 0.0-0.3 [facility] Bilirubin Test strip Ql (U)O rdered By: Juan Rivas on 12-13-2024 Bilirubin Ql (U) Negative Negative [facility] CBC W/Diff, Automatedon Absolute Lymph 3.83 X10 3/uL Normal 0.83-4.51 [facility] Comment on above: Performed By: #### L 501.6901 #### [facility] [address] [place], [address] Absolute Neut 6.1 X10 3/uL Normal 2.0-7.7 [facility] Comment on above: Performed By: #### L 501.6901 #### [facility] [address] [place], [address] Basophils/100 WBC (Bld) 0.6 % Normal 0-1 [facility] Comment on above: Performed By: #### L 501.6901 #### [facility] [address] [place], [address] Eosinophils/100 WBC (Bld) 3.3 % Normal 0-5 [facility] Comment on above: Performed By: #### L 501.6901 #### [facility] [address] [place], [address] Erythrocyte distribution width (RBC) [Ratio] 15.2 % High 11.6-14.6 [facility] Comment on above: Performed By: #### L 501.6901 #### [facility] [address] [place], [address] Hematocrit (Bld) [Volume fraction] 43.1 % Normal 40-54 [facility] Comment on above: Performed By: #### L 501.6901 #### [facility] [address] [place], [address] Hemoglobin (Bld) [Mass/Vol] 13.9 g/dL Normal 13.0-16.5 [facility] Comment on above: Performed By: #### L 501.6901 #### [facility] [address] [place], [address] IG% 0.300 Normal 0.0-0.9 [facility] Comment on above: Result Comment: IG% - Immature Granulocytes (promyelocytes, myelocytes and metamyelocytes) > 1% indicates that a LEFT SHIFT is Present. Performed By: #### L 501.6901 #### [facility] [address] [place], [address] Lymphocytes/100 WBC (Bld) 33.9 % Normal 19-41 [facility] Comment on above: Performed By: #### L 501.6901 #### [facility] [address] [place], [address] MCH (RBC) [Entitic mass] 23.4 pg Low 27.0-32.0 [facility] Comment on above: Performed By: #### L 501.6901 #### [facility] [address] [place], [address] MCHC (RBC) [Mass/Vol] 32.3 g/dL Normal 32-36 [facility] Comment on above: Performed By: #### L 501.6901 #### [facility] [address] [place], [address] MCV (RBC) [Entitic vol] 72.7 fL Low 80-94 [facility] Comment on above: Performed By: #### L 501.6901 #### [facility] [address] [place], [address] Monocytes/100 WBC (Bld) 8.1 % Normal 0-10 [facility] Comment on above: Performed By: #### L 501.6901 #### [facility] [address] [place], [address] Neutrophils/100 WBC (Bld) 53.8 % Normal 47-70 [facility] Comment on above: Performed By: #### L 501.6901 #### [facility] [address] [place], [address] Nucleated RBC (Bld) [#/Vol] 0 10*3/uL Normal 0-5 [facility] Comment on above: Performed By: #### L 501.6901 #### [facility] [address] [place], [address] Platelet mean volume (Bld) [Entitic vol] 10.5 fL Normal 6.2-12.0 [facility] Comment on above: Performed By: #### L 501.6901 #### [facility] [address] [place], [address] Platelets (Bld) [#/Vol] 449 10*3/uL Normal 150-450 [facility] Comment on above: Performed By: #### L 501.6901 #### [facility] [address] [place], [address] RBC (Bld) [#/Vol] 5.93 10*6/uL Normal 4.6-6.2 [facility] Comment on above: Performed By: #### L 501.6901 #### [facility] [address] [place], [address] RDW SD 38.6 fl Normal 35.1-43.9 [facility] Comment on above: Performed By: #### L 501.6901 #### [facility] [address] [place], [address] WBC (Bld) [#/Vol] 11.3 10*3/uL High 4.4-11.0 [facility] Comment on above: Performed By: #### L 501.6901 #### [facility] [address] [place], [address] CO2 (BldV) [Moles/Vol]Ordere d By: Juan Rivas on 12-13-2024 CO2 [Moles/Vol] 28 mmol/L 23-33 [facility] Emergency Department Summary on 12-13-2024 Emergency Department Summary [facility] Medical Records Department [address] [place] [address] Emergency Department Summary 12/13/24 MR#: [id number] Acct: [id number] Name: UNA COSBY Rep #: [id number] : 1995 29 From: Juan Rivas MD [...] he cannot keep anything down all day. [facility] Medical History Learning difficulty due to [...] edema o (more content not included)... Normal [facility] Eosinophil percentageOrdered By: Juan Rivas on 12-13-2024 Eosinophils/100 WBC (Bld) 3.3 % 0-5 [facility] Erythrocyte distribution wid th ratioOrdered By: Juan Rivas on 12-13-2024 Erythrocyte distribution width (RBC) [Ratio] 15.2 % High 11.6-14.6 [facility] Erythrocyte distribution wid th standard deviationOrdered By: Juan Rivas on 12-13-2024 Erythrocyte distribution width (RBC) [Ratio] 38.6 fl 35.1-43.9 [facility] Hematocrit Auto (Bld) [Volum e fraction]Ordered By: Juan Rivas on 12-13-2024 Hematocrit (Bld) [Volume fraction] 43.1 % 40-54 [facility] Hemoglobin measurementOrdere d By: Juan Rivas on 12-13-2024 Hemoglobin (Bld) [Mass/Vol] 13.9 g/dL 13.0-16.5 [facility] Immature granulocytes/100 WB C Auto (Bld)Ordered By: Juan Rivas on 12-13-2024 Immature granulocytes/100 WBC (Bld) 0.300 % 0.0-0.9 [facility] Comment on above: IG% - Immature Granu locytes (promyelocytes, myelocytes and metamyelocytes) > 1% indicates that a LEFT SHIFT is Present. Ketones Test strip Ql (U)Ord ered By: Juan Rivas on 12-13-2024 Ketones Ql (U) 5 mg/dl High Negative [facility] MCV (mean corpuscular volume ) determinationOrdered By: Juan Rivas on 12-13-2024 MCV (RBC) [Entitic vol] 72.7 fL Low 80-94 [facility] Mean corpuscular hemoglobin (MCH) determinationOrdered By: Juan Rivas on 12-13-2024 MCH (RBC) [Entitic mass] 23.4 pg Low 27.0-32.0 [facility] Mean corpuscular hemoglobin concentration (MCHC) determinationOrdered By: Juan Rivas on 12-13-2024 MCHC (RBC) [Mass/Vol] 32.3 g/dL 32-36 [facility] Mean platelet volume determi nationOrdered By: Juan Rivas on 12-13-2024 Platelet mean volume (Bld) [Entitic vol] 10.5 fL 6.2-12.0 [facility] Microscopic analysis of urin e for red blood cells (RBC)Ordered By: Juan Rivas on 12-13-2024 Microscopic analysis of urine for red blood cells (RBC) 0 SEEN /hpf 0-5 [facility] Monocyte percentageOrdered B y: Juan Rivas on 12-13-2024 Monocytes/100 WBC (Bld) 8.1 % 0-10 [facility] Mucus LM Ql (Urine sed)Order ed By: Juan Rivas on 12-13-2024 Mucus Ql (Urine sed) 0 SEEN /hpf [facility] Neutrophil percentageOrdered By: Juan Rivas on 12-13-2024 Neutrophils/100 WBC (Bld) 53.8 % 47-70 [facility] Nitrite Test strip Ql (U)Ord ered By: Juan Rivas on 12-13-2024 Nitrite Ql (U) Negative Negative [facility] No Panel InformationOrdered By: Juan Rivas on 12-13-2024 Blood Gas Sample Site Not entered [facility] Blood Gas Specimen Type JAIDEN [facility] Oxygen Delivery Device Not entered [facility] Nucleated red blood cell per centageOrdered By: Juan Rivas on 12-13-2024 Nucleated RBC/100 WBC (Bld) [Ratio] 0 % 0-5 [facility] Platelet countOrdered By: Cesar Rivas on 12-13-2024 Platelets (Bld) [#/Vol] 449 10*3/uL 150-450 [facility] Protein Test strip Ql (U)Ord ered By: Juan Rivas on 12-13-2024 Protein Ql (U) 30 mg/dl High Negative [facility] RBC Auto (Bld) [#/Vol]Ordere d By: Juan Rivas on 12-13-2024 RBC (Bld) [#/Vol] 5.93 10*6/uL 4.6-6.2 [facility] Squamous epithelial cells de tection in urine sediment by light microscopyOrdered By: Juan Rivas on 12-13-2024 Epithelial cells.squamous LM Ql (Urine sed) 0 SEEN /hpf 0-5 [facility] Urinalysis, Completeon 12-13 BILIRUBIN URINE Negative Normal Negative [facility] Comment on above: Order Comment: MANN EDMONDSOR TO SPECIFY Performed By: #### L 400.0001 ####[facility] [address] [place], [address] Clarity (U) Clear Normal Clear [facility] Comment on above: Order Comment: MANN CTOR TO SPECIFY Performed By: #### L 400.0001 ####[facility] [address] [place], [place], [id number] Color (U) Straw Normal Yellow [facility] Comment on above: Order Comment: MANN CTOR TO SPECIFY Performed By: #### L 400.0001 ####[facility] [address] [place], [place], [id number] GLUCOSE, UR 1000 mg/dl Abnormal Normal [facility] Comment on above: Order Comment: MANN CTOR TO SPECIFY Performed By: #### L 400.0001 ####[facility] [address] [place], [address] KETONE UR 5 mg/dl Abnormal Negative [facility] Comment on above: Order Comment: MANN CTOR TO SPECIFY Performed By: #### L 400.0001 ####[facility] [address] [place] [address] LEUK ESTERASE Negative Normal Negative [facility] Comment on above: Order Comment: MANN CTOR TO SPECIFY Performed By: #### L 400.0001 ####[facility] [address] [place] [address] Nitrite Ql (U) Negative Normal Negative [facility] Comment on above: Order Comment: MANN CTOR TO SPECIFY Performed By: #### L 400.0001 ####[facility] [address] [place], [place], [phone] OCCULT BLOOD-UR 25 /ul Abnormal Negative [facility] Comment on above: Order Comment: MANN CTOR TO SPECIFY Performed By: #### L 400.0001 ####[facility] [address] [place], [address] pH UR 7.0 Normal 5.0 - 8.0 [facility] Comment on above: Order Comment: MANN CTOR TO SPECIFY Performed By: #### L 400.0001 ####[facility] [address] [place] [id number] PROT DIPSTX 30 mg/dl Abnormal Negative [facility] Comment on above: Order Comment: MANN CTOR TO SPECIFY Performed By: #### L 400.0001 ####[facility] [address] [place], [address] SP.GR. DIPSTX 1.005 Normal 1.002-1.03 0 [facility] Comment on above: Order Comment: MANN CTOR TO SPECIFY Performed By: #### L 400.0001 ####[facility] [address] [place], [address] UROBILI Normal Normal Normal [facility] Comment on above: Order Comment: MANN CTOR TO SPECIFY Performed By: #### L 400.0001 ####[facility] [address] [place], [address] BACTERIA 0 SEEN Normal None Seen [facility] Comment on above: Order Comment: MANN CTOR TO SPECIFY Performed By: #### L 400.0001 ####[facility] [address] [place], [address] EPI,SQUAMOUS 0 SEEN Normal 0-5 [facility] Comment on above: Order Comment: MANN CTOR TO SPECIFY Performed By: #### L 400.0001 ####[facility] [address] [place], [address] Mucus Ql (Urine sed) 0 SEEN Normal [place] Comment on above: Order Comment: MANN CTOR TO SPECIFY Performed By: #### L 400.0001 ####[facility] [address] [place], [address] RBC 0 SEEN Normal [address] Comment on above: Order Comment: MANN CTOR TO SPECIFY Performed By: #### L 400.0001 ####[facility] [address] [place], [address] WBC 0 SEEN Normal 0-[address] [place] [address] Comment on above: Order Comment: MANN CTOR TO SPECIFY Performed By: #### L 400.0001 ####[facility] [address] [place], [address] Urine clarityOrdered By: Cherie Rivas on 12-13-2024 Clarity (U) Clear Clear [facility] Urine color determinationOrd ered By: Juan Rivas on 12-13-2024 Color (U) Straw Yellow [facility] Urine glucose detectionOrder ed By: Juan Rivas on 12-13-2024 Glucose Ql (U) 1000 mg/dl High Normal [facility] Urine leukocyte esterase det ection by dipstickOrdered By: Juan Rivas on 12-13-2024 Leukocyte esterase Test strip Ql (U) Negative Negative [facility] Urine pHOrdered By: Juan Rivas on 12-13-2024 pH (U) 7.0 [pH] 5.0 - 8.0 [facility] Urine sediment bacteria coun t by microscopy (number/high power field)Ordered By: Juan Rivas on 12-13-2024 Bacteria LM.HPF (Urine sed) [#/Area] 0 /[HPF] None Seen [facility] Urine specific gravity measu rementOrdered By: Juan Rivas on 12-13-2024 Specific gravity (U) [Rel density] 1.005 1.002-1.03 0 [facility] Urine urobilinogen measureme ntOrdered By: Juan Rivas on 12-13-2024 Urobilinogen Ql (U) Normal mg/dl Normal [facility] Venous Blood Gason 5 Blood Gas Type JAIDEN Normal [facility] Comment on above: Performed By: #### L 501.6901 #### [facility] [address] [place], [place], [id number] CO2 [Moles/Vol] 28 mmol/L Normal 23-33 [facility] Comment on above: Performed By: #### L 501.6901 #### [facility] [address] [place], [place], [address] FI02 21.0 Normal [facility] Comment on above: Performed By: #### L 501.6901 #### [facility] [address] [place], [place], [id number] HCO3 (Bld) [Moles/Vol] 27 mmol/L High 22-26 [facility] Comment on above: Performed By: #### L 501.6906 #### [facility] [address] [place], [place], [id number] O2 Delivery Dev Not entered Normal [facility] Comment on above: Performed By: #### L 501.6901 #### [facility] [address] [place], [address] SITE Not entered Normal [facility] Comment on above: Performed By: #### L 501.6901 #### [facility] [address] [place], [address] VBG BE 4 mmol/L High -1.0-3.5 [facility] Comment on above: Performed By: #### L 501.6901 #### [facility] [address] [place], [address] VBG pCO2 34.4 mmHg Low 41-51 [facility] Comment on above: Performed By: #### L 501.6901 #### [facility] [address] [place], [address] VBG pH 7.50 High 7.32-7.42 [facility] Comment on above: Performed By: #### L 501.6901 #### [facility] [address] [place], [address] VBG PO2 76 mmHg High 25-40 [facility] Comment on above: Performed By: #### L 501.6901 #### [facility] [address] [place], [address] VBG SO2 96 High 50-70 [facility] Comment on above: Performed By: #### L 501.6901 #### [facility] [address] [place], [address] Venous blood base excess yaya surementOrdered By: Juan Rivas on 12-13-2024 Base excess Calc (BldV) [Moles/Vol] 4 mmol/L High -1.0-3.5 [facility] Venous blood bicarbonate yaya surementOrdered By: Juan Rivas on 12-13-2024 HCO3 (Bld) [Moles/Vol] 27 mmol/L High 22-26 [facility] Venous blood oxygen saturati on measurementOrdered By: Juan Rivas on 12-13-2024 Oxygen saturation in Blood 96 % High 50-70 [facility] Venous blood pH measurementO rdered By: Juan Rivas on 12-13-2024 pH (BldV) 7.50 [pH] High 7.32-7.42 [facility] Venous blood partial pressur e of carbon dioxide measurementOrdered By: Juan Rivas on 12-13-2024 CO2 (BldV) [Partial pressure] 34.4 mm[Hg] Low 41-51 [facility] Venous blood partial pressur e of oxygen measurementOrdered By: Juan Rivas on 12-13-2024 Oxygen (BldV) [Partial pressure] 76 mm[Hg] High 25-40 [facility] White blood cell (WBC) count Ordered By: Juan Rivas on 12-13-2024 WBC (Bld) [#/Vol] 11.3 10*3/uL High 4.4-11.0 [facility] White blood cell countOrdere d By: Juan Rivas on 12-13-2024 White blood cell count 0 SEEN /hpf 0-5 [facility] Emergency Department Summary on 12-12-2024 Emergency Department Summary [facility] Medical Records Department [address] [place] [address] Emergency Department Summary 12/12/24 MR#: [id number] Acct: [id number] Name: UNA COSBY Rep #: [id number] : 1995 29 From: Arik Boswell MD [...] Funtion Narrative Narrative: Patient is a 29-year-old ulqdg-rwwg-cwckcdii male who presents with atraumatic left shoulder [...] function intact (more content not included)... Normal [facility] Shoulder min 2 Viewson 12-12 Shoulder min [address] [facility] Imaging Services [address] [place], [place] [address] Shoulder min 2 Views MR#: [id number] Acct: [id number] Name: UNA COSBY Rep #: [id number] : 1995 M 29 From: Deangelo Peña MD PCP: Care Physician,No Primary Status: REG ER Study: Shoulder min 2 Views Date of Exam: 12/12/24 Exam# [id number] Ordering Dr: Arik Boswell MD PROCEDURE: SHOULDER MIN 2 VIEWS, 12/12/2024 REASON FOR EXAM: INJURY/PAIN TECHNIQUE: AP, Grashey, scapular Y, and axillary views of the LEFT shoulder were obtained. COMPARISON: None FINDINGS: Fracture/dislocation: None visible. Joint space(s): Preserved. Soft tissues: Unremarkable. Foreign bodies: None visible. Bone mineralization: Unremarkable. Other: None. RAD/Shoulder min 2 Views IMPRESSION: No visible acute abnormality. Reading Location: [id number] CC: Dr. 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, [address] Absolute lymphocyte countOrd ered By: Lourdes Metz on 11-11-2024 Lymphocytes Auto (Unsp spec) [#/Vol] 2.97 10*3/uL 0.83-4.51 [facility] Absolute neutrophil countOrd ered By: Lourdes Metz on 11-11-2024 Neutrophils (Bld) [#/Vol] 11.8 10*3/uL High 2.0-7.7 [facility] Anion gap in Serum or Plasma Ordered By: Lourdes Metz on 11-11-2024 Anion gap [Moles/Vol] 11 mmol/L 5-15 [facility] Automated lymphocyte count a s percentage of total leukocytesOrdered By: Lourdes Metz on 11-11-2024 Lymphocytes/100 WBC Auto (Unsp spec) 17.9 % Low 19-41 [facility] BUN/creatinine ratioOrdered By: Lourdes Metz on 11-11-2024 Urea nitrogen/Creatinine [Mass ratio] 16.4 mg/mg 10-20 [facility] Base excess Calc (BldV) [Mol es/Vol]Ordered By: Steven Donaldson on 11-11-2024 Venous Blood Base Excess 2 mmol/L -1.0-3.5 [facility] Basophil percentageOrdered B y: Lourdes Metz on 11-11-2024 Basophils/100 WBC (Bld) 0.2 % 0-1 [facility] Beta hydroxybutyrate [Mass/V ol]Ordered By: Lourdes Metz on 11-11-2024 Beta-Hydroxybutyric Acid mmol/L 0.6 mmol/L 0.0-0.3 [facility] Beta-Hydroxbytyrateon 2024 BETA-HYDROXYBUT 0.6 mmol/L Normal 0.0-0.3 [facility] Comment on above: Performed By: #### L 501.6901 #### [facility] [address] [place], [address] Beta-hydroxybutyrateOrdered By: Lourdes Metz on 11-11-2024 Beta hydroxybutyrate [Mass/Vol] 0.6 mmol/L 0.0-0.3 [facility] Bilirubin, totalOrdered By: Lourdes Metz on 11-11-2024 Bilirubin [Mass/Vol] mg/dL 0.00-1.30 [place] Blood manual differential co mment interpretation (narrative result)Ordered By: Lourdes Metz on 11-11-2024 Manual differential comment Gigi (Bld) [Interp] SCANNED [facility] CO2 (BldV) [Moles/Vol]Ordere d By: Steven Donaldson on 11-11-2024 CO2 [Moles/Vol] 28 mmol/L 23-33 [facility] CO2 (BldV) [Partial pressure ]Ordered By: Steven Donaldson on 11-11-2024 Bed Mix Venous Bld PCO2 at Pat Temp 39.6 mmHg Low 41-51 [facility] Carbon dioxide, total [Moles /volume] in Central venous bloodOrdered By: Lourdes Metz on 11-11-2024 CO2 [Moles/Vol] 24.8 mmol/L 21.0-32.0 [facility] Chloride assayOrdered By: Malena Metz on 11-11-2024 Chloride [Moles/Vol] 102 mmol/L 98-108 [facility] Comprehensive Metabolic Prof ilon 11-11-2024 Albumin [Mass/Vol] 3.6 g/dL Normal 3.5-5.0 [facility] Comment on above: Performed By: #### L 100.0100, L500.4050, L501.2450 ####[facility] [address] [place], [address] Albumin/Globulin [Mass ratio] 1.4 {ratio} Normal 0.9-2.4 [facility] Comment on above: Performed By: #### L 100.0100, L500.4050, L501.2450 ####[facility] [address] [place], [address] ALK PHOS 123 U/L Normal 40-129 [facility] Comment on above: Performed By: #### L 100.0100, L500.4050, L501.2450 ####[facility] [address] [place], [address] ALT [Catalytic activity/Vol] 20 U/L Normal <=46 [facility] Comment on above: Performed By: #### L 100.0100, L500.4050, L501.2450 ####[facility] [address] [place], [address] AST [Catalytic activity/Vol] 18 U/L Normal <=37 [facility] Comment on above: Performed By: #### L 100.0100, L500.4050, L501.2450 ####[facility] [address] [place], [address] BUN/CRE 16.4 RATIO Normal 10-20 [facility] Comment on above: Performed By: #### L 100.0100, L500.4050, L501.2450 ####[facility] [address] [place], [address] Calcium [Mass/Vol] 8.3 mg/dL Normal 7.6-11.0 [facility] Comment on above: Performed By: #### L 100.0100, L500.4050, L501.2450 ####[facility] [address] [place], [address] Chloride [Moles/Vol] 102 mmol/L Normal 98-108 [facility] Comment on above: Performed By: #### L 100.0100, L500.4050, L501.2450 ####[facility] [address] [place], [address] CO2 [Moles/Vol] 24.8 mmol/L Normal 21.0-32.0 [facility] Comment on above: Performed By: #### L 100.0100, L500.4050, L501.2450 ####[facility] [address] [place], [address] Creatinine [Mass/Vol] 0.85 mg/dL Normal 0.70-1.20 [facility] Comment on above: Performed By: #### L 100.0100, L500.4050, L501.2450 ####[facility] [address] [place], [address] ECRCL 115.58 ml/min Normal 50-250 [facility] Comment on above: Performed By: #### L 100.0100, L500.4050, L501.2450 ####[facility] [address] [place], [address] GAP 11 Normal 5-15 [facility] Comment on above: Performed By: #### L 100.0100, L500.4050, L501.2450 ####[facility] [address] [place], [address] GFR/1.73 sq M.predicted among non-blacks MDRD (S/P/Bld) [Vol rate/Area] 122 mL/min/{1.73_m2} Normal >60 [facility] Comment on above: Result Comment: mL/m in/1.73m2 CKD-EPI Creatinine Equation (2020) Performed By: #### L 100.0100, L500.4050, L501.2450 ####[facility] [address] [place], [address] Globulin (S) [Mass/Vol] 2.6 g/dL Normal 2.2-4.2 [facility] Comment on above: Performed By: #### L 100.0100, L500.4050, L501.2450 ####[facility] [address] [place], [address] Glucose [Mass/Vol] 113 mg/dL High 70-99 [facility] Comment on above: Performed By: #### L 100.0100, L500.4050, L501.2450 ####[facility] [address] [place], [address] Potassium [Moles/Vol] 3.2 mmol/L Low 3.3-5.1 [facility] Comment on above: Performed By: #### L 100.0100, L500.4050, L501.2450 ####[facility] [address] [place], [address] Sodium [Moles/Vol] 138 mmol/L Normal 133-145 [facility] Comment on above: Performed By: #### L 100.0100, L500.4050, L501.2450 ####[facility] [address] [place], [address] T BILI < 0.15 Normal 0.00-1.30 [facility] Comment on above: Performed By: #### L 100.0100, L500.4050, L501.2450 ####[facility] [address] [place], [address] T PROT 6.1 g/dL Normal 5.9-8.4 [facility] Comment on above: Performed By: #### L 100.0100, L500.4050, L501.2450 ####[facility] [address] [place], [address] Urea nitrogen [Mass/Vol] 14 mg/dL Normal 4-19 [facility] Comment on above: Performed By: #### L 100.0100, L500.4050, L501.2450 ####[facility] [address] [place], [address] Emergency Department Summary on 11-11-2024 Emergency Department Summary [facility] Medical Records Department [address] [place] [address] Emergency Department Summary 11/11/24 MR#: [id number] Acct: [id number] Name: UNA COSBY Rep #: [id number] : 1995 29 From: Lourdes [place] PCP: [...] fevers, chills, hematemesis, diarrhea, and urinary symptoms. [facility] Medical History Learning difficulty due to [...] afternoon a (more content not included)... Normal [facility] Eosinophil percentageOrdered By: Lourdes Metz on 11-11-2024 Eosinophils/100 WBC (Bld) 0.8 % 0-5 [facility] Erythrocyte distribution wid th (RBC) [Ratio]Ordered By: Lourdes Metz on 11-11-2024 Erythrocyte distribution width (RBC) [Entitic vol] 42.0 fL 35.1-43.9 [facility] Erythrocyte distribution wid th ratioOrdered By: Lourdes Metz on 11-11-2024 Erythrocyte distribution width (RBC) [Ratio] 15.8 % High 11.6-14.6 [facility] Erythrocyte distribution wid th standard deviationOrdered By: Lourdes Metz on 11-11-2024 Erythrocyte distribution width (RBC) [Ratio] 42.0 fl 35.1-43.9 [facility] Erythrocyte morphology asses smentOrdered By: Lourdes Metz on 11-11-2024 RBC morphology finding Nom (Bld) NORM C+C NORMAL NORM C&C [facility] Estimation of creatinine riley aranceOrdered By: Lourdes Metz on 04-05-2025 Estimated Creatinine Clearance Calc 115.58 ml/min 50-250 [facility] GFR/1.73 sq M.predicted baldev g non-blacks MDRD (S/P/Bld) [Vol rate/Area]Ordered By: Lourdes Metz on 11-11-2024 Estimated GFR (MDRD) Non-Af Amer 122 >60 [facility] Comment on above: mL/min/1.73m2 CKD-EP I Creatinine Equation (2020) Glomerular filtration rate ( GFR) estimation/1.73 sq m using serum, plasma, or whole bOrdered By: Lourdes Metz on 11-11-2024 GFR/1.73 sq M.predicted among non-blacks MDRD (S/P/Bld) [Vol rate/Area] 122 mL/min/{1.73_m2} >60 [facility] Comment on above: mL/min/1.73m2 CKD-EP I Creatinine Equation (2020) Hematocrit Auto (Bld) [Volum e fraction]Ordered By: Lourdes Metz on 11-11-2024 Hematocrit (Bld) [Volume fraction] 39.7 % Low 40-54 [facility] Hemoglobin measurementOrdere d By: Lourdes Metz on 11-11-2024 Hemoglobin (Bld) [Mass/Vol] 12.5 g/dL Low 13.0-16.5 [facility] Immature granulocytes/100 WB C Auto (Bld)Ordered By: Lourdes Metz on 11-11-2024 Immature granulocytes/100 WBC (Bld) 0.400 % 0.0-0.9 [facility] Comment on above: IG% - Immature Granu locytes (promyelocytes, myelocytes and metamyelocytes) > 1% indicates that a LEFT SHIFT is Present. Laboratory - Chemistry and C hemistry - challengeOrdered By: Lourdes Metz on 11-11-2024 AST [Catalytic activity/Vol] 18 U/L <38 [facility] Lipaseon 11-11-2024 Lipase [Catalytic activity/Vol] 17 U/L Normal 13-75 [facility] Comment on above: Result Comment: Stella caro note: LIPASE revised reference range effective 22. New Lipase methodology. Expected to produce lower values than the previous assay method. NEW Reference Range: 13 - 75 U/L Performed By: Gisselle### L 500.2500 #### [facility] Laboratory [address] [place], [address] Lipase measurementOrdered By : Lourdes Metz on 11-11-2024 Lipase [Catalytic activity/Vol] 17 U/L 13-75 [facility] Comment on above: Please note:LIPASE r evised reference range effective 22. New Lipase methodology. Expected to produce lower values than the previous assay method. NEW Reference Range: 13 - 75 U/L Lymphocytes Auto (Unsp spec) [#/Vol]Ordered By: Lourdes Metz on 11-11-2024 Lymphocytes (Bld) [#/Vol] 2.97 10*3/uL 0.83-4.51 [facility] Lymphocytes/100 WBC Auto (Un sp spec)Ordered By: Lourdes Metz on 11-11-2024 Lymphocytes/100 WBC (Bld) 17.9 % Low 19-41 [facility] MCV (mean corpuscular volume ) determinationOrdered By: Lourdes Metz on 11-11-2024 MCV (RBC) [Entitic vol] 75.0 fL Low 80-94 [facility] Manual differential comment Gigi (Bld) [Interp]Ordered By: Lourdes Metz on 11-11-2024 Differential Comment SCANNED [place] Mean corpuscular hemoglobin (MCH) determinationOrdered By: Lourdes Metz on 11-11-2024 MCH (RBC) [Entitic mass] 23.6 pg Low 27.0-32.0 [facility] Mean corpuscular hemoglobin concentration (MCHC) determinationOrdered By: Lourdes Metz on 11-11-2024 MCHC (RBC) [Mass/Vol] 31.5 g/dL Low 32-36 [facility] Mean platelet volume determi nationOrdered By: Lourdes Metz on 11-11-2024 Platelet mean volume (Bld) [Entitic vol] 10.6 fL 6.2-12.0 [facility] Monocyte percentageOrdered B y: Lourdes Metz on 11-11-2024 Monocytes/100 WBC (Bld) 9.5 % 0-10 [facility] Neutrophil percentageOrdered By: Lourdes Metz on 11-11-2024 Neutrophils/100 WBC (Bld) 71.2 % High 47-70 [facility] No Panel InformationOrdered By: Steven Donaldson on 11-11-2024 Blood Gas Sample Site Not entered [facility] Blood Gas Specimen Type JAIDEN [facility] Oxygen Delivery Device Room Air [facility] Nucleated red blood cell per centageOrdered By: Lourdes Metz on 11-11-2024 Nucleated RBC/100 WBC (Bld) [Ratio] 0 % 0-5 [facility] Oxygen (BldV) [Partial press ure]Ordered By: Steven Donaldson on 11-11-2024 Venous Blood Partial Pressure O2 40 mmHg 25-40 [facility] Pathologist review Gigi (Unsp spec) [Interp]Ordered By: Lourdes Metz on 11-11-2024 Differential Pathologist's Review [facility] Platelet countOrdered By: Malena Metz on 11-11-2024 Platelets (Bld) [#/Vol] 314 10*3/uL 150-450 [facility] Platelet estimateOrdered By: Lourdes Metz on 11-11-2024 Platelets LM Ql (Bld) ADEQUATE ADEQ [facility] Platelet morphologyOrdered B y: Lourdes Metz on 11-11-2024 Platelet morphology finding Nom (Bld) LARGE [facility] Platelet morphology finding Nom (Bld)Ordered By: Lourdes Metz on 11-11-2024 Platelet Morphology Comment LARGE [facility] Platelets LM Ql (Bld)Ordered By: Lourdes Metz on 11-11-2024 Platelet Estimate ADEQUATE ADEQ [facility] Potassium (Unsp spec) [Mass/ Vol]Ordered By: Lourdes Metz on 11-11-2024 Potassium [Moles/Vol] 3.2 mmol/L Low 3.3-5.1 [facility] Potassium measurement (mass/ volume)Ordered By: Lourdes Metz on 11-11-2024 Potassium (Unsp spec) [Mass/Vol] 3.2 mmol/L Low 3.3-5.1 [facility] RBC Auto (Bld) [#/Vol]Ordere d By: Lourdes Metz on 11-11-2024 RBC (Bld) [#/Vol] 5.29 10*6/uL 4.6-6.2 [facility] RBC morphology finding Nom ( Bld)Ordered By: Lourdes Metz on 11-11-2024 Red Blood Cell Morphology NORM C+C NORMAL NORM C&C [facility] Review by pathologistOrdered By: Lourdes Metz on 11-11-2024 Pathologist review Gigi (Unsp spec) [Interp] Reviewed [facility] Comment on above: Previous reported re sult: Louisa wiseman Edited by: ANAYELI on 11/23/24:1409SEE REPORT IN PATIENT'S EMR AMENDED REPORT 11/23/24 1409 PATH REV previously reported as: Louisa wiseman Serum creatinine measurement (mass/volume)Ordered By: Lourdes Metz on 11-11-2024 Creatinine [Mass/Vol] 0.85 mg/dL 0.70-1.20 [facility] Serum globulin measurementOr dered By: Lourdes Metz on 11-11-2024 Globulin (S) [Mass/Vol] 2.6 g/dL 2.2-4.2 [facility] Serum glucose measurement (m ass/volume)Ordered By: Lourdes Metz on 11-11-2024 Glucose [Mass/Vol] 113 mg/dL High 70-99 [facility] Serum or plasma alanine oviedo otransferase (ALT) measurementOrdered By: Lourdes Metz on 11-11-2024 ALT [Catalytic activity/Vol] 20 U/L <47 [facility] Serum or plasma albumin koby urement (mass/volume)Ordered By: Lourdes Metz on 11-11-2024 Albumin [Mass/Vol] 3.6 g/dL 3.5-5.0 [facility] Serum or plasma albumin/glob ulin mass ratioOrdered By: Lourdes Metz on 11-11-2024 Albumin/Globulin [Mass ratio] 1.4 {ratio} 0.9-2.4 [facility] Serum or plasma alkaline lopez sphatase measurementOrdered By: Lourdes Metz on 11-11-2024 ALP [Catalytic activity/Vol] 123 U/L 40-129 [facility] Serum or plasma calcium koby urement (mass/volume)Ordered By: Lourdes Metz on 11-11-2024 Calcium [Mass/Vol] 8.3 mg/dL 7.6-11.0 [facility] Serum or plasma urea nitroge n measurement (mass/volume)Ordered By: Lourdes Metz on 11-11-2024 Urea nitrogen [Mass/Vol] 14 mg/dL 4-19 [facility] Sodium levelOrdered By: Wesly Metz on 11-11-2024 Sodium [Moles/Vol] 138 mmol/L 133-145 [facility] Total proteinOrdered By: Graham Metz on 11-11-2024 Protein [Mass/Vol] 6.1 g/dL 5.9-8.4 [facility] Venous Blood Gason Blood Gas Type JAIDEN Normal [facility] Comment on above: Performed By: #### L 501.6901 #### [facility] Laboratory [address] [place], [address] CO2 [Moles/Vol] 28 mmol/L Normal 23-33 [facility] Comment on above: Performed By: #### L 501.6901 #### [facility] Laboratory [address], [address] HCO3 (Bld) [Moles/Vol] 27 mmol/L High 22-26 [facility] Comment on above: Performed By: #### L 501.6901 #### [facility] Laboratory [address] [place], [address] O2 Delivery Dev Room Air Normal [facility] Comment on above: Performed By: #### L [id number] #### [facility] Laboratory [address] [place], [address] SITE Not entered [facility] Comment on above: Performed By: #### L 501.6901 #### [facility] Laboratory [address], [address] VBG BE 2 mmol/L Normal -1.0-3.5 [facility] Comment on above: Performed By: #### L 501.6901 #### [facility] Laboratory [address] [place], [place], [id number] VBG pCO2 39.6 mmHg Low 41-51 [facility] Comment on above: Performed By: #### L 501.6901 #### [facility] Laboratory [address] [place], [place], [id number] VBG pH 7.44 High 7.32-7.42 [facility] Comment on above: Performed By: #### L [id number] #### [facility] Laboratory [address] [place], [place], [id number] VBG PO2 40 mmHg Normal 25-40 [facility] Comment on above: Performed By: #### L 501.6901 #### [facility] Laboratory [address] [place], [place], [id number] VBG SO2 76 High 50-70 [facility] Comment on above: Performed By: #### L 501.6901 #### [facility] Laboratory [address] [place], [place], [id number] Venous blood base excess yaya surementOrdered By: Steven Donaldson on 11-11-2024 Base excess Calc (BldV) [Moles/Vol] 2 mmol/L -1.0-3.5 [facility] Venous blood bicarbonate yaya surementOrdered By: Steven Donaldson on 11-11-2024 HCO3 (Bld) [Moles/Vol] 27 mmol/L High 22-26 [facility] Venous blood oxygen saturati on measurementOrdered By: Steven Donaldson on 11-11-2024 Oxygen saturation in Blood 76 % High 50-70 [facility] Venous blood pH measurementO rdered By: Steven Donaldson on 11-11-2024 pH (BldV) 7.44 [pH] High 7.32-7.42 [facility] Venous blood partial pressur e of carbon dioxide measurementOrdered By: Steven Donaldson on 11-11-2024 CO2 (BldV) [Partial pressure] 39.6 mm[Hg] Low 41-51 [facility] Venous blood partial pressur e of oxygen measurementOrdered By: Steven Lowery on 11-11-2024 Oxygen (BldV) [Partial pressure] 40 mm[Hg] 25-40 [facility] White blood cell (WBC) count Ordered By: Lourdes Metz on 11-11-2024 WBC (Bld) [#/Vol] 16.6 10*3/uL High 4.4-11.0 [facility] pH (BldV)Ordered By: Steven Rasmussen on 11-11-2024 Venous Blood pH 7.44 High 7.32-7.42 [facility] 12 Lead EKGon 10-19-2024 12 Lead [address] [facility] Cardiovascular Services [address] [place] [address] 12 Lead EKG 10/19/24 0029 MR#: [id number] Acct: [id number] Name: UNA COSBY Rep #: [id number] : 1995 29 From: Taylor Man MD [...] normal ECG Confirmed by MEGAN MIRELES, NIKKI ([id number]), assistant editor COREY MICHAEL ([id number]) on 10/23/2024 10:53:38 AM Referred By: Confirmed By: NIKKI MAN MD 10/23/24 1053 Date Taylor Man MD CC: Dr. Keisha Handy, DO; No Primary Care Physician Signed Normal [facility] Absolute lymphocyte countOrd ered By: Keisha Handy on 10-19-2024 Lymphocytes Auto (Unsp spec) [#/Vol] 3.70 10*3/uL 0.83-4.51 [facility] Absolute neutrophil countOrd ered By: Keisha Handy on 10-19-2024 Neutrophils (Bld) [#/Vol] 8.5 10*3/uL High 2.0-7.7 [facility] Anion gap in Serum or Plasma Ordered By: Keisha Handy on 10-19-2024 Anion gap [Moles/Vol] 17 mmol/L High 5-15 [facility] Comment on above: Previous reported re sult: 14 Edited by: LUCERO on 10/19/24:0209 AMENDED REPORT 10/19/24208 GAP previously reported as: 14 Automated lymphocyte count a s percentage of total leukocytesOrdered By: Keisha Handy on 10-19-2024 Lymphocytes/100 WBC Auto (Unsp spec) 27.7 % 19-41 [facility] BUN/creatinine ratioOrdered By: Keisha Handy on 10-19-2024 Urea nitrogen/Creatinine [Mass ratio] 26.8 mg/mg High 10-20 [facility] Comment on above: Previous reported re sult: 25.4 RATIOEdited by: LUCERO on 10/19/24:0209 AMENDED REPORT 10/19/24 020 BUN/CRE previously reported as: 25.4 H RATIO Base excess Calc (BldV) [Mol es/Vol]Ordered By: Keisha Handy on 10-19-2024 Venous Blood Base Excess -2 mmol/L Low -1.0-3.5 [facility] Basic Metabolic Profile (BMP )on 10-19-2024 Calcium [Mass/Vol] 8.9 mg/dL Normal 7.6-11.0 [facility] Comment on above: Performed By: #### L 100.0100, L501.4021, L500.2500 ####[facility] [address] [place], [address] GFR/1.73 sq M.predicted among non-blacks MDRD (S/P/Bld) [Vol rate/Area] 134 mL/min/{1.73_m2} Normal >60 [facility] Comment on above: Result Comment: mL/m in/1.73m2 CKD-EPI Creatinine Equation (2020) Performed By: #### L 100.0100, L501.4021, L500.2500 ####[facility] [address] [place], [address] Basophil percentageOrdered B y: Keisha Handy on 10-19-2024 Basophils/100 WBC (Bld) 0.7 % 0-1 [facility] Bedside Glucoseon 10-19-2024 FINGERSTICK GLU 312 mg/dL High 74-106 [facility] Comment on above: Result Comment: TEJAL MATTA OF PATIENT CARE PER NURSING PROTOCOL Performed By: #### L 501.080 ####[facility] [address] [place], [address] Bilirubin Test strip Ql (U)O rdered By: Keisha Handy on 10-19-2024 Bilirubin Ql (U) Negative Negative [facility] CBC W/Diff, Automatedon 10-07 Absolute Lymph 3.70 X10 3/uL Normal 0.83-4.51 [facility] Comment on above: Performed By: #### L 100.0100, L501.4021, L500.2500 ####[facility] [address] [place], [address] Absolute Neut 8.5 X10 3/uL High 2.0-7.7 [facility] Comment on above: Performed By: #### L 100.0100, L501.4021, L500.2500 ####[facility] [address] [place], [address] Basophils/100 WBC (Bld) 0.7 % Normal 0-1 [facility] Comment on above: Performed By: #### L 100.0100, L501.4021, L500.2500 ####[facility] [address] [place], [address] Eosinophils/100 WBC (Bld) 1.5 % Normal 0-5 [facility] Comment on above: Performed By: #### L 100.0100, L501.4021, L500.2500 ####[facility] [address] [place], [address] Erythrocyte distribution width (RBC) [Ratio] 16.5 % High 11.6-14.6 [facility] Comment on above: Performed By: #### L 100.0100, L501.4021, L500.2500 ####[facility] [address] [place], [address] Hematocrit (Bld) [Volume fraction] 43.5 % Normal 40-54 [facility] Comment on above: Performed By: #### L 100.0100, L501.4021, L500.2500 ####[facility] [address] [place], [address] Hemoglobin (Bld) [Mass/Vol] 13.4 g/dL Normal 13.0-16.5 [facility] Comment on above: Performed By: #### L 100.0100, L501.4021, L500.2500 ####[facility] [address] [place], [address] IG% 0.400 Normal 0.0-0.9 [facility] Comment on above: Result Comment: IG% - Immature Granulocytes (promyelocytes, myelocytes and metamyelocytes) > 1% indicates that a LEFT SHIFT is Present. Performed By: #### L 100.0100, L501.4021, L500.2500 ####[facility] [address] [place], [address] Lymphocytes/100 WBC (Bld) 27.7 % Normal 19-41 [facility] Comment on above: Performed By: #### L 100.0100, L501.4021, L500.2500 ####[facility] [address] [place], [address] MCH (RBC) [Entitic mass] 23.2 pg Low 27.0-32.0 [facility] Comment on above: Performed By: #### L 100.0100, L501.4021, L500.2500 ####[facility] [address] [place], [address] MCHC (RBC) [Mass/Vol] 30.8 g/dL Low 32-36 [facility] Comment on above: Performed By: #### L 100.0100, L501.4021, L500.2500 ####[facility] [address] [place], [address] MCV (RBC) [Entitic vol] 75.3 fL Low 80-94 [facility] Comment on above: Performed By: #### L 100.0100, L501.4021, L500.2500 ####[facility] [address] [place], [address] Monocytes/100 WBC (Bld) 6.2 % Normal 0-10 [facility] Comment on above: Performed By: #### L 100.0100, L501.4021, L500.2500 ####[facility] [address] [place], [address] Neutrophils/100 WBC (Bld) 63.5 % Normal 47-70 [facility] Comment on above: Performed By: #### L 100.0100, L501.4021, L500.2500 ####[facility] [address] [place], [address] Nucleated RBC (Bld) [#/Vol] 0 10*3/uL Normal 0-5 [facility] Comment on above: Performed By: #### L 100.0100, L501.4021, L500.2500 ####[facility] [address] [place], [address] Platelet mean volume (Bld) [Entitic vol] 10.3 fL Normal 6.2-12.0 [facility] Comment on above: Performed By: #### L 100.0100, L501.4021, L500.2500 ####[facility] [address] [place], [address] Platelets (Bld) [#/Vol] 346 10*3/uL Normal 150-450 [facility] Comment on above: Performed By: #### L 100.0100, L501.4021, L500.2500 ####[facility] [address] [place], [address] RBC (Bld) [#/Vol] 5.78 10*6/uL Normal 4.6-6.2 [facility] Comment on above: Performed By: #### L 100.0100, L501.4021, L500.2500 ####[facility] [address] [place], [address] RDW SD 43.9 fl Normal 35.1-43.9 [facility] Comment on above: Performed By: #### L 100.0100, L501.4021, L500.2500 ####[facility] [address] [place], [address] WBC (Bld) [#/Vol] 13.4 10*3/uL High 4.4-11.0 [facility] Comment on above: Performed By: #### L 100.0100, L501.4021, L500.2500 ####[facility] [address] [place], [address] CO2 (BldV) [Moles/Vol]Stane d By: Keisha Handy on 10-19-2024 CO2 [Moles/Vol] 25 mmol/L 23-33 [facility] CO2 (BldV) [Partial pressure ]Ordered By: Keisha Handy on 10-19-2024 Bed Mix Venous Bld PCO2 at Pat Temp 41.4 mmHg 41-51 [facility] Carbon dioxide, total [Moles /volume] in Central venous bloodOrdered By: Keisha Handy on 10-19-2024 CO2 [Moles/Vol] 20.5 mmol/L Low 21.0-32.0 [facility] Comment on above: Previous reported re sult: 22.7 mmol/LEdited by: AUTOINS on 10/19/24:0209 AMENDED REPORT 10/19/24 020 CO2 previously reported as: 22.7 mmol/L Chest PA and Lateralon 10-19 Chest PA and Lateral [facility] Imaging Services [address] [place] [id number] Chest PA and Lateral MR#: [id number] Acct: [id number] Name: UNA COSBY Rep #: [id number] : 1995 M 29 From: Tirso Massey MD PCP: Dr. Deangelo Noel MD Status: PRE ER Study: Chest PA and Lateral Date of Exam: 10/19/24 Exam# [id number] Ordering Dr: Keisha Handy DO PROCEDURE: CHEST PA AND LATERAL REASON FOR EXAM: CHEST PAIN TECHNIQUE: PA and lateral views of the chest. COMPARISON: 02/15/2023 FINDINGS: The lungs are clear. The cardiac and mediastinal contours are within limits. The visualized osseous structures appear within limits. RAD/Chest PA and Lateral IMPRESSION: No evidence of acute disease. Reading Location: [facility] CC: Dr. Keisha Handy DO; Dr. 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 Performed By: #### L 501.6901 #### [facility] Laboratory [address] [place], [address] D-dimer measurement for deep venous thrombosisOrdered By: Keisha Handy on 10-19-2024 D-Dimer Quantitative (PE/DVT) 0.28 FEU/ug/m 0.27-0.49 [facility] Comment on above: NORMAL D-Dimer level (<0.50) indicates no DVT or PE. Emergency Department Summary on 10-19-2024 Emergency Department Summary [facility] Medical Records Department [address] [place] [address] Emergency Department Summary 10/19/24 MR#: [id number] Acct: [id number] Name: UNA COSBY Rep #: [id number] : 1995 29 From: Keisha Handy DO [...] complaints or concerns reported at this time. [facility] Medical History Learning difficulty due to [...] NAD HEEN (more content not included)... Normal [facility] Eosinophil percentageOrdered By: Keisha Handy on 10-19-2024 Eosinophils/100 WBC (Bld) 1.5 % 0-5 [facility] Epithelial cells.squamous LM Ql (Urine sed)Ordered By: Keisha Handy on 10-19-2024 Epithelial cells.squamous LM.HPF (Urine sed) [#/Area] 0 /[HPF] 0-5 [facility] Erythrocyte distribution wid th ratioOrdered By: Keisha Handy on 10-19-2024 Erythrocyte distribution width (RBC) [Ratio] 16.5 % High 11.6-14.6 [facility] Erythrocyte distribution wid th standard deviationOrdered By: Keisha Handy on 10-19-2024 Erythrocyte distribution width (RBC) [Entitic vol] 43.9 fL 35.1-43.9 [facility] Erythrocyte distribution width (RBC) [Ratio] 43.9 fl 35.1-43.9 [facility] Estimation of creatinine riley aranceOrdered By: Keisha Handy on 10-19-2024 Estimated Creatinine Clearance Calc 163.42 ml/min 50-250 [facility] GFR/1.73 sq M.predicted baldev g non-blacks MDRD (S/P/Bld) [Vol rate/Area]Ordered By: Keisha Handy on 10-19-2024 Estimated GFR (MDRD) Non-Af Amer 134 >60 [facility] Comment on above: mL/min/1.73m2 CKD-EP I Creatinine Equation (2020) Glomerular filtration rate ( GFR) estimation/1.73 sq m using serum, plasma, or whole bOrdered By: Keisha Handy on 10-19-2024 GFR/1.73 sq M.predicted among non-blacks MDRD (S/P/Bld) [Vol rate/Area] 134 mL/min/{1.73_m2} >60 [facility] Comment on above: mL/min/1.73m2 CKD-EP I Creatinine Equation (2020) Glucose Ql (U)Ordered By: Javier Handy on 10-19-2024 Glucose (U) [Mass/Vol] 1000 mg/dL High Normal [facility] deOrdered By: Keisha Handy on 10-19-2024 Bedside Glucose (Misc Panel) 312 mg/dL High 74-106 [facility] Comment on above: MANAGEMENT OF PATIEN T CARE PER NURSING PROTOCOL Glucose [Mass/Vol] 312 mg/dL High 74-106 [facility] Comment on above: MANAGEMENT OF PATIEN T CARE PER NURSING PROTOCOL Hematocrit Auto (Bld) [Volum e fraction]Ordered By: Keisha Handy on 10-19-2024 Hematocrit (Bld) [Volume fraction] 43.5 % 40-54 [facility] Hemoglobin measurementOrdere d By: Keisha Handy on 10-19-2024 Hemoglobin (Bld) [Mass/Vol] 13.4 g/dL 13.0-16.5 [facility] Immature granulocytes/100 WB C Auto (Bld)Ordered By: Keisha Handy on 10-19-2024 Immature granulocytes/100 WBC (Bld) 0.400 % 0.0-0.9 [facility] Comment on above: IG% - Immature Granu locytes (promyelocytes, myelocytes and metamyelocytes) > 1% indicates that a LEFT SHIFT is Present. Ketones Test strip Ql (U)Ord ered By: Keisha Handy on 10-19-2024 Ketones Ql (U) 15 mg/dl High Negative [facility] L499.0042on 10-19-2024 Trop T High Sen 9 ng/L Normal <=22 [facility] Comment on above: Performed By: #### L 501.6901 #### [facility] Laboratory [address] [place], [address] L501.4021on 10-19-2024 Trop T High Sen 8 ng/L Normal <=22 [facility] Comment on above: Result Comment: AMENDED REPORT 10/19/24 0201 Trop T High Sen previously reported as: 7 ng/L Performed By: #### L 100.0100, L501.4021, L500.2500 ####[facility] [address] [place], [address] L501.6901on 10-19-2024 BETA-HYDROXYBUT 0.6 mmol/L Normal 0.0-0.3 [facility] Comment on above: Performed By: #### L 501.6901 ####[facility] [address] [place], [address] Lymphocytes Auto (Unsp spec) [#/Vol]Ordered By: Keisha Handy on 10-19-2024 Lymphocytes (Bld) [#/Vol] 3.70 10*3/uL 0.83-4.51 [facility] Lymphocytes/100 WBC Auto (Un sp spec)Ordered By: Keihsa Handy on 10-19-2024 Lymphocytes/100 WBC (Bld) 27.7 % 19-41 [facility] MCV (mean corpuscular volume ) determinationOrdered By: Keisha Handy on 10-19-2024 MCV (RBC) [Entitic vol] 75.3 fL Low 80-94 [facility] [facility] Mean corpuscular hemoglobin (MCH) determinationOrdered By: Keisha Handy on 10-19-2024 MCH (RBC) [Entitic mass] 23.2 pg Low 27.0-32.0 [facility] Mean corpuscular hemoglobin concentration (MCHC) determinationOrdered By: Keisha Handy on 10-19-2024 MCHC (RBC) [Mass/Vol] 30.8 g/dL Low 32-36 [facility] Mean platelet volume determi nationOrdered By: Keisha Handy on 10-19-2024 Platelet mean volume (Bld) [Entitic vol] 10.3 fL 6.2-12.0 [facility] Microscopic analysis of urin e for red blood cells (RBC)Ordered By: Keisha Handy on 10-19-2024 Microscopic analysis of urine for red blood cells (RBC) 0-5 SEEN /hpf 0-5 [facility] Urine RBC 0-5 SEEN /hpf 0-5 [facility] Monocyte percentageOrdered B y: Keisha Handy on 10-19-2024 Monocytes/100 WBC (Bld) 6.2 % 0-10 [facility] Mucus LM Ql (Urine sed)Order ed By: Keisha Handy on 10-19-2024 Mucus Ql (Urine sed) 0 SEEN /hpf [facility] Neutrophil percentageOrdered By: Keisha Handy on 10-19-2024 Neutrophils/100 WBC (Bld) 63.5 % 47-70 [facility] Nitrite Test strip Ql (U)Ord ered By: Keisha Handy on 10-19-2024 Nitrite Ql (U) Negative Negative [facility] No Panel InformationOrdered By: Keisha Handy on 10-19-2024 Blood Gas Sample Site Not entered [facility] Blood Gas Specimen Type JAIDEN [facility] Oxygen Delivery Device Room Air [facility] Beta-Hydroxybutyric Acid mmol/L 0.6 mmol/L 0.0-0.3 [facility] Troponin T High Sensitivity 8 ng/L <22 [facility] Comment on above: Previous reported re sult: 7 ng/LEdited by: LUCERO on 10/19/24:0201 AMENDED REPORT 10/19/24200 Trop T High Sen previously reported as: 7 ng/L Nucleated red blood cell per centageOrdered By: Keisha Handy on 10-19-2024 Nucleated RBC/100 WBC (Bld) [Ratio] 0 % 0-5 [facility] Oxygen (BldV) [Partial press ure]Ordered By: Keisha Handy on 10-19-2024 Venous Blood Partial Pressure O2 32 mmHg 25-40 [facility] Platelet countOrdered By: Javier Handy on 10-19-2024 Platelets (Bld) [#/Vol] 346 10*3/uL 150-450 [facility] Potassium (Unsp spec) [Mass/ Vol]Ordered By: Keisha Handy on 10-19-2024 Potassium [Moles/Vol] 4.1 mmol/L 3.3-5.1 [facility] Potassium measurement (mass/ volume)Ordered By: Keisha Handy on 10-19-2024 Potassium (Unsp spec) [Mass/Vol] 4.1 mmol/L 3.3-5.1 [facility] Protein Test strip Ql (U)Ord ered By: Keisha Handy on 10-19-2024 Protein Ql (U) 100 mg/dl High Negative [facility] RBC Auto (Bld) [#/Vol]Ordere d By: Keisha Handy on 10-19-2024 RBC (Bld) [#/Vol] 5.78 10*6/uL 4.6-6.2 [facility] Serum creatinine measurement (mass/volume)Ordered By: Keisha Handy on 10-19-2024 Creatinine [Mass/Vol] 0.63 mg/dL Low 0.70-1.20 [facility] Serum glucose measurement (m ass/volume)Ordered By: Keisha Handy on 10-19-2024 Glucose [Mass/Vol] 458 mg/dL High 70-99 [facility] Comment on above: Critical Result(s) C alled at:0208 by: SERAFIN BELL TO RN SHUFF2 Results read back by same.Previous reported result: 457 mg/dLEdited by: LUCERO on 10/19/24:0209 AMENDED REPORT 10/19/24208 GLU previously reported as: 457 *H mg/dL Serum or plasma calcium koby urement (mass/volume)Ordered By: Keisha Handy on 10-19-2024 Calcium [Mass/Vol] 8.9 mg/dL 7.6-11.0 [facility] Serum or plasma urea nitroge n measurement (mass/volume)Ordered By: Keisha Handy on 10-19-2024 Urea nitrogen [Mass/Vol] 17 mg/dL 4-19 [facility] Comment on above: Previous reported re sult: 16 mg/dLEdited by: LUCERO on 10/19/24:0209 AMENDED REPORT 10/19/24208 BUN previously reported as: 16 mg/dL Sodium levelOrdered By: Roger Handy on 10-19-2024 Sodium [Moles/Vol] 129 mmol/L Low 133-145 [facility] Comment on above: Previous reported re sult: 130 mmol/LEdited by: LUCERO on 10/19/24:0209 AMENDED REPORT 10/19/24208 NA previously reported as: 130 L mmol/L Squamous epithelial cells de tection in urine sediment by light microscopyOrdered By: Keisha Handy on 10-19-2024 Epithelial cells.squamous LM Ql (Urine sed) 0-5 SEEN /hpf 0-5 [facility] Troponin T.cardiac High sens itivity method [Mass/Vol]Ordered By: Keisha Handy on 10-19-2024 Troponin T High Sensitivity 2 Hour 9 ng/L <22 [facility] Troponin T.cardiac [Mass/vol ume] in Serum or Plasma by High sensitivity methodOrdered By: Keisha Handy on 10-19-2024 Troponin T.cardiac High sensitivity method [Mass/Vol] 9 ng/L <22 [facility] Urinalysis, Completeon 10-19 BACTERIA 1+ /hpf Normal None Seen [facility] Comment on above: Order Comment: COLLE CTOR TO SPECIFY Performed By: #### L 400.0001 ####[facility] [address] [place], [address] EPI,SQUAMOUS 0-5 SEEN Normal 0-5 [facility] Comment on above: Order Comment: MANN CTOR TO SPECIFY Performed By: #### L 400.0001 ####[facility] [address] [place], [address] RBC 0-5 SEEN Normal 0-5 [facility] Comment on above: Order Comment: MANN CTOR TO SPECIFY Performed By: #### L 400.0001 ####[facility] [address] [place], [address] Mucus Ql (Urine sed) 0 SEEN Normal [place] Comment on above: Order Comment: MANN CTOR TO SPECIFY Performed By: #### L 400.0001 ####[facility] [address] [place], [address] WBC 0 SEEN Normal 0-5 [facility] Comment on above: Order Comment: MANN CTOR TO SPECIFY Performed By: #### L 400.0001 ####[facility] [address] [place], [address] Urine blood detectionOrdered By: Keisha Handy on 10-19-2024 Urine Occult Blood 25 /ul High Negative [facility] Urine clarityOrdered By: Soraida Handy on 10-19-2024 Clarity (U) Clear Clear [facility] Urine color determinationOrd ered By: Keisha Handy on 10-19-2024 Color (U) Yellow Yellow [facility] Urine glucose detectionOrder ed By: Keisha Handy on 10-19-2024 Glucose Ql (U) 1000 mg/dl High Normal [facility] Urine leukocyte esterase det ection by dipstickOrdered By: Keisha Handy on 10-19-2024 Leukocyte esterase Test strip Ql (U) Negative Negative [facility] Urine pHOrdered By: Keisha santiago on 10-19-2024 pH (U) 6.0 [pH] 5.0 - 8.0 [facility] Urine sediment bacteria coun t by microscopy (number/high power field)Ordered By: Keisha Handy on 10-19-2024 Bacteria LM.HPF (Urine sed) [#/Area] 1 /[HPF] None Seen [facility] Urine specific gravity measu rementOrdered By: Keisha Handy on 10-19-2024 Specific gravity (U) [Rel density] 1.010 1.002-1.03 0 [facility] Urine urobilinogen measureme ntOrdered By: Keisha Handy on 10-19-2024 Urobilinogen Ql (U) Normal mg/dl Normal [facility] Urobilinogen Ql (U)Ordered B y: Keisha Handy on 10-19-2024 Urine Urobilinogen Normal mg/dl Normal [place] Venous Blood Gason Blood Gas Type JAIDEN Normal [facility] Comment on above: Performed By: #### L 9000.0810 ####[facility] [address] [place], [address] CO2 [Moles/Vol] 25 mmol/L Normal 23-33 [facility] Comment on above: Performed By: #### L 9000.0810 ####[facility] [address] [place], [address] HCO3 (Bld) [Moles/Vol] 23 mmol/L Normal 22-26 [facility] Comment on above: Performed By: #### L 9000.0810 ####[facility] [address] [place], [address] O2 Delivery Dev Room Air Normal [facility] Comment on above: Performed By: #### L 9000.0810 ####[facility] [address] [place], [address] SITE Not entered Normal [facility] Comment on above: Performed By: #### L 9000.0810 ####[facility] [address] [place], [address] VBG BE -2 mmol/L Low -1.0-3.5 [facility] Comment on above: Performed By: #### L 9000.0810 ####[facility] [address] [place], [address] VBG pCO2 41.4 mmHg Normal 41-51 [facility] Comment on above: Performed By: #### L 9000.0810 ####[facility] [address] [place], [address] VBG pH 7.36 Normal 7.32-7.42 [facility] Comment on above: Performed By: #### L 9000.0810 ####[facility] [address] [place], [address] VBG PO2 32 mmHg Normal 25-40 [facility] Comment on above: Performed By: #### L 9000.0810 ####[facility] [address] [place], [address] VBG SO2 59 Normal 50-70 [facility] Comment on above: Performed By: #### L 9000.0810 ####[facility] [address] [place], [address] Venous blood base excess yaya surementOrdered By: Keisha Handy on 10-19-2024 Base excess Calc (BldV) [Moles/Vol] -2 mmol/L Low -1.0-3.5 [facility] Venous blood bicarbonate yaya surementOrdered By: Keisha Handy on 10-19-2024 HCO3 (Bld) [Moles/Vol] 23 mmol/L 22-26 [facility] Venous blood oxygen saturati on measurementOrdered By: Keisha Handy on 10-19-2024 Oxygen saturation in Blood 59 % 50-70 [facility] Venous blood pH measurementO rdered By: Keisha Handy on 10-19-2024 pH (BldV) 7.36 [pH] 7.32-7.42 [facility] Venous blood partial pressur e of carbon dioxide measurementOrdered By: Keisha Handy on 10-19-2024 CO2 (BldV) [Partial pressure] 41.4 mm[Hg] 41-51 [facility] Venous blood partial pressur e of oxygen measurementOrdered By: Keisha Handy on 10-19-2024 Oxygen (BldV) [Partial pressure] 32 mm[Hg] 25-40 [facility] White blood cell (WBC) count Ordered By: Keisha Handy on 10-19-2024 WBC (Bld) [#/Vol] 13.4 10*3/uL High 4.4-11.0 [facility] White blood cell countOrdere d By: Keisha Handy on 10-19-2024 Urine WBC 0 SEEN /hpf 0-5 [facility] White blood cell count 0 SEEN /hpf 0-5 [facility] pH (BldV)Ordered By: Keisha Handy on 10-19-2024 Venous Blood pH 7.36 7.32-7.42 [facility] CBC W Auto Differential pane l (Bld)on 10-10-2024 Basophils (Bld) [#/Vol] 0.06 10*3/uL Normal <0.11 [facility] Comment on above: Order Comment: Speci men Type: BLOOD SPECIMEN Ordering Facility: [facility] Address: [address] [place] [address] Performed By: #### 5 7021-8 #### [facility] CLIA [id number] [address] [place] [address] [place] Basophils/100 WBC (Bld) 0.5 % Normal C [facility] Comment on above: Order Comment: Speci men Type: BLOOD SPECIMEN Ordering Facility: [facility] Address: [address] [place] [address] Performed By: #### 5 7021-8 #### [facility] CLIA [id number] [address] [place] [address] [place] Differential cell count method Nom (Bld) Auto Normal [facility] Comment on above: Order Comment: Speci men Type: BLOOD SPECIMEN Ordering Facility: [facility] Address: [address] [place] [address] Performed By: #### 5 7021-8 #### [facility] CLIA [id number] [address] [place] [address] [place] Eosinophils (Bld) [#/Vol] 0.20 10*3/uL Normal <0.46 [facility] Comment on above: Order Comment: Speci men Type: BLOOD SPECIMEN Ordering Facility: [facility] Address: [address] [place] [address] Performed By: #### 5 7021-8 #### [id number] [address] [place] [address] [place] Eosinophils/100 WBC (Bld) 1.6 % Normal [facility] Comment on above: Order Comment: Speci men Type: BLOOD SPECIMEN Ordering Facility: [facility] Address: [address] [place] [address] Performed By: #### 5 7021-8 #### [id number] [address] [place] [address] [place] Erythrocyte distribution width (RBC) [Ratio] 16.2 % High 11.5-15.0 [facility] Comment on above: Order Comment: Speci men Type: BLOOD SPECIMEN Ordering Facility: [facility] Address: [address] [place] [address] Performed By: #### 5 7021-8 #### [facility] [id number] [address] [place] [address] [place] Hematocrit (Bld) [Volume fraction] 42.3 % Normal 39.0-51.0 [facility] Comment on above: Order Comment: Speci men Type: BLOOD SPECIMEN Ordering Facility: [facility] Address: [address] [place] [address] Performed By: #### 5 7021-8 #### [facility] CLIA [id number] [address] [place] [address] [place] Hemoglobin (Bld) [Mass/Vol] 13.0 g/dL Normal 13.0-17.0 [facility] Comment on above: Order Comment: Speci men Type: BLOOD SPECIMEN Ordering Facility: [facility] Address: [address] [place] [address] Performed By: #### 5 7021-8 #### [facility] CLIA [id number] [address] [place] [address] [place] Immature granulocytes (Bld) [#/Vol] 0.04 10*3/uL Normal <0.10 [facility] Comment on above: Order Comment: Speci men Type: BLOOD SPECIMEN Ordering Facility: [facility] Address: [address] [place] [address] Performed By: #### 5 7021-8 #### [facility] CLIA [id number] [address] [place] [address] [place] Immature granulocytes/100 WBC (Bld) 0.3 % Normal [facility] Comment on above: Order Comment: Speci men Type: BLOOD SPECIMEN Ordering Facility: [facility] Address: [address] [place] [address] Performed By: #### 5 7021-8 #### [facility] CLIA [id number] [address] [place] [address] [place] Lymphocytes (Bld) [#/Vol] 4.12 10*3/uL High 1.00-4.00 [facility] Comment on above: Order Comment: Speci men Type: BLOOD SPECIMEN Ordering Facility: [facility] Address: [address] [place] [address] Performed By: #### 5 7021-8 #### [facility] CLIA [id number] [address] [place] [address] [place] Lymphocytes/100 WBC (Bld) 33.4 % Normal [facility] Comment on above: Order Comment: Speci men Type: BLOOD SPECIMEN Ordering Facility: [facility] Address: [address] [place] [address] Performed By: #### 5 7021-8 #### [facility] CLIA [id number] [address] [place] [address] [place] MCH (RBC) [Entitic mass] 23.2 pg Low 26.0-34.0 [facility] Comment on above: Order Comment: Speci men Type: BLOOD SPECIMEN Ordering Facility: [facility] Address: [address] [place] [address] Performed By: #### 5 7021-8 #### [facility] [id number] [address] [place] [address] [place] MCHC (RBC) [Mass/Vol] 30.7 g/dL Normal 30.5-36.0 [facility] Comment on above: Order Comment: Speci men Type: BLOOD SPECIMEN Ordering Facility: [facility] Address: [address] [place] [address] Performed By: #### 5 7021-8 #### [facility] [id number] [address] [place] [address] [place] MCV (RBC) [Entitic vol] 75.4 fL Low 80.0-100.0 C [facility] Comment on above: Order Comment: Speci men Type: BLOOD SPECIMEN Ordering Facility: [facility] Address: [address] [place] [address] Performed By: #### 5 7021-8 #### [id number] [address] [place] [address] [place] Monocytes (Bld) [#/Vol] 0.97 10*3/uL High <0.87 [facility] Comment on above: Order Comment: Speci men Type: BLOOD SPECIMEN Ordering Facility: [facility] Address: [address] [place] [address], [place] [address] Performed By: #### 5 7021-8 #### [facility] CLIA [id number] [address] [place] [address] [place] Monocytes/100 WBC (Bld) 7.9 % Normal [facility] Comment on above: Order Comment: Speci men Type: BLOOD SPECIMEN Ordering Facility: [facility] Address: [address] [place] [address] Performed By: #### 5 7021-8 #### [facility] CLIA [id number] [address] [place] [address] [place] Neutrophils (Bld) [#/Vol] 6.94 10*3/uL Normal 1.45-7.50 [facility] Comment on above: Order Comment: Speci men Type: BLOOD SPECIMEN Ordering Facility: [facility] Address: [address] [place] [address] Performed By: #### 5 7021-8 #### [facility] CLIA [id number] [address] [place] [address] [place] Neutrophils/100 WBC (Bld) 56.3 % Normal [facility] Comment on above: Order Comment: Speci men Type: BLOOD SPECIMEN Ordering Facility: [facility] Address: [address] [place] [address] Performed By: #### 5 7021-8 #### [facility] CLIA [id number] [address] [place] [address] [place] Nucleated RBC (Bld) [#/Vol] 10*3/uL Normal <0.01 [facility] Comment on above: Order Comment: Speci men Type: BLOOD SPECIMEN Ordering Facility: [facility] Address: [address] [place] [address] Performed By: #### 5 7021-8 #### [facility] CLIA [id number] [address] [place] [address] [place] Nucleated RBC/100 WBC (Bld) [Ratio] 0.0 /100 WBC Normal [facility] Comment on above: Order Comment: Speci men Type: BLOOD SPECIMEN Ordering Facility: [facility] Address: [address] [place] [address] Performed By: #### 5 7021-8 #### [facility] CLIA [id number] [address] [place] [address] [place] Platelet mean volume (Bld) [Entitic vol] 11.3 fL Normal 9.0-12.7 [facility] Comment on above: Order Comment: Speci men Type: BLOOD SPECIMEN Ordering Facility: [facility] Address: [address] [place] [address] Performed By: #### 5 7021-8 #### [facility] CLIA [id number] [address] [place] [address] [place] Platelets (Bld) [#/Vol] 403 10*3/uL High 150-400 [facility] Comment on above: Order Comment: Speci men Type: BLOOD SPECIMEN Ordering Facility: [facility] Address: [address] [place] [address] Performed By: #### 5 7021-8 #### [facility] CLIA [id number] [address] [place] [address] [place] RBC (Bld) [#/Vol] 5.61 10*6/uL Normal 4.20-6.00 [facility] Comment on above: Order Comment: Speci men Type: BLOOD SPECIMEN Ordering Facility: [facility] Address: [address] [place] [address] Performed By: #### 5 7021-8 #### [facility] CLIA [id number] [address] [place] [address] [place] WBC (Bld) [#/Vol] 12.33 10*3/uL High 3.70-11.00 [facility] Comment on above: Order Comment: Speci men Type: BLOOD SPECIMEN Ordering Facility: [facility] Address: [address] [facility], [place] [address] Performed By: #### 5 7021-8 #### [facility] CLIA [id number] [address] [place] [address] [place] Comprehensive metabolic 2000 panelon 10-10-2024 Albumin [Mass/Vol] 3.8 g/dL Low 3.9-4.9 [facility] Comment on above: Order Comment: Speci men Type: BLOOD SPECIMEN Ordering Facility: [facility] Address: [address] [place] [address], [place] [address] Performed By: #### 2 4323-8, 3016-3 #### [facility] CLIA [id number] [address] [place] #### 78181-5 #### [facility] CLIA [id number] [address] [place] [address] [place] [facility] CLIA [id number] [address] [place] [address] [place] ALP [Catalytic activity/Vol] 175 U/L High 38-113 [facility] Comment on above: Order Comment: Speci men Type: BLOOD SPECIMEN Ordering Facility: [facility] Address: [address] [facility], [place] [address] Performed By: #### 2 4323-8, 3016-3 #### [facility] CLIA [id number] [address] [place] #### 01934-4 #### [facility] CLIA [id number] [address] [place] [address] [place] [facility] CLIA [id number] [address] [place] [address] [place] ALT With P-5'-P [Catalytic activity/Vol] 22 U/L Normal 10-54 [facility] Comment on above: Order Comment: Speci men Type: BLOOD SPECIMEN Ordering Facility: [facility] Address: [address] [place] [address], [place] [address] Performed By: #### 2 4323-8, 3016-3 #### [facility] CLIA [id number] [address] [place] #### 60404-4 #### [facility] CLIA [id number] [address] [place] [address] [place] [facility] CLIA [id number] [address] [place] [address] [place] Anion gap [Moles/Vol] 16 mmol/L High 8-15 [facility] Comment on above: Order Comment: Speci men Type: BLOOD SPECIMEN Ordering Facility: [facility] Address: [address] [place] [address], [place] [address] Performed By: #### 2 4323-8, 6-3 #### [facility] CLIA [id number] [address] [place] #### 47389-4 #### [facility] CLIA [id number] [address] [place] [address] [place] [facility] CLIA [id number] [address] [place] [address] [place] AST With P-5'-P [Catalytic activity/Vol] 16 U/L Normal 14-40 [facility] Comment on above: Order Comment: Speci men Type: BLOOD SPECIMEN Ordering Facility: [facility] Address: [facility] [facility], [place] [address] Performed By: #### 2 4323-8, 6-3 #### [facility] CLIA [id number] [address] [place] #### 89701-4 #### [facility] CLIA [id number] [address] [place] [address] [place] [facility] CLIA [id number] [address] [place] [address] [place] Bilirubin [Mass/Vol] 0.2 mg/dL Normal 0.2-1.3 [facility] Comment on above: Order Comment: Speci men Type: BLOOD SPECIMEN Ordering Facility: [facility] Address: [address] [place] [address] Performed By: #### 2 4323-8, 3016-3 #### [facility] CLIA [id number] [address] [place] #### 89091-8 #### [facility] CLIA [id number] [address] [place] [address] [place] [facility] CLIA [id number] [address] [place] [address] [place] Calcium [Mass/Vol] 8.9 mg/dL Normal 8.5-10.2 [facility] Comment on above: Order Comment: Speci men Type: BLOOD SPECIMEN Ordering Facility: [facility] Address: [address] [place] [address] Performed By: #### 2 4323-8, 3016-3 #### [facility] CLIA [id number] [address] [place] #### 25318-1 #### [facility] CLIA [id number] [address] [place] [address] [place] [facility] CLIA [id number] [address] [place] [address] [place] Chloride [Moles/Vol] 88 mmol/L Low 98-107 [facility] Comment on above: Order Comment: Speci men Type: BLOOD SPECIMEN Ordering Facility: [facility] Address: [address] [place] [address] Performed By: #### 2 4323-8, 3016-3 #### [facility] CLIA [id number] [address] #### 98207-1 #### [facility] CLIA [id number] [address] STATES OF [facility] CLIA [id number] [address] [place] [address] [place] CO2 [Moles/Vol] 23 mmol/L Normal 22-30 [facility] Comment on above: Order Comment: Speci men Type: BLOOD SPECIMEN Ordering Facility: [facility] Address: [address] [place] [address] Performed By: #### 2 4323-8, 6-3 #### [facility] CLIA [id number] [address] #### 29751-7 #### [facility] CLIA [id number] 1 [place] [address] [place] [facility] CLIA [id number] [address] Creatinine [Mass/Vol] 0.64 mg/dL Low 0.73-1.22 [facility] Comment on above: Order Comment: Speci men Type: BLOOD SPECIMEN Ordering Facility: [facility] Address: [address] [place] [address] Performed By: #### 2 4323-8, 6-3 #### [facility] CLIA [id number] [address] [place] #### 90100-0 #### [facility] CLIA [id number] 1 [place] [address] [place] [facility] CLIA [id number] [address] [place] [address] [place] Creatinine and Glomerular filtration rate.predicted panel (S/P/Bld) 133 mL/min/1.73m??? Normal >=60 [facility] Comment on above: Order Comment: Noemi adrian Type: BLOOD SPECIMEN Ordering Facility: [facility] Address: [address] [place] [address], [place] [address] Result Comment: Tara mated Glomerular Filtration Rate [...] Performed By: #### 2 4323-8, 3016-3 #### [facility] CLIA [id number] [address] #### 63657-3 #### [facility] CLIA [id number] [address] STATES OF [facility] CLIA [id number] [address] [place] [address] [place] Glucose [Mass/Vol] 659 mg/dL High 74-99 [facility] Comment on above: Order Comment: Noemi adrian Type: BLOOD SPECIMEN Ordering Facility: [facility] Address: [address] [place] [address] Result Comment: The [place] Diabetes Association (ADA) provides guidance for cutoff [...] Standards of Medical Care in Diabetes 2016, [place] Diabetes Association. Diabetes Care. 2016.39(Suppl 1). Performed By: #### 2 4323-8, 3016-3 #### [facility] CLIA [id number] [address] [place] #### 79285-2 #### [facility] CLIA [id number] 1 [place] [address] [place] [facility] CLIA [id number] [address] [place] [address] [place] Potassium [Moles/Vol] 4.5 mmol/L Normal 3.7-5.1 [facility] Comment on above: Order Comment: Speci men Type: BLOOD SPECIMEN Ordering Facility: [facility] Address: [address] [place] [address] Performed By: #### 2 4323-8, 6-3 #### [facility] CLIA [id number] [address] [place] #### 39439-1 #### [facility] CLIA [id number] 1 [place] [address] [place] [facility] CLIA [id number] [address] [place] [address] [place] Protein [Mass/Vol] 6.9 g/dL Normal 6.3-8.0 [facility] Comment on above: Order Comment: Speci men Type: BLOOD SPECIMEN Ordering Facility: [facility] Address: [address] [place] [address], [place] [address] Performed By: #### 2 4323-8, 6-3 #### [facility] CLIA [id number] 1 [place] [address] [place] #### 03719-6 #### [facility] CLIA [id number] 1 [place] [address] [place] [facility] CLIA [id number] [address] [place] [address] [place] Sodium [Moles/Vol] 127 mmol/L Low 136-144 [facility] Comment on above: Order Comment: Speci men Type: BLOOD SPECIMEN Ordering Facility: [facility] Address: [address] [facility], [place] [address] Performed By: #### 2 4323-8, 3016-3 #### [facility] CLIA [id number] [address] [place] #### 06437-4 #### [facility] CLIA [id number] 1 [place] [address] [place] [facility] CLIA [id number] [address] [place] Urea nitrogen [Mass/Vol] 17 mg/dL Normal 9-24 [facility] Comment on above: Order Comment: Speci men Type: BLOOD SPECIMEN Ordering Facility: [facility] Address: [address] [place] [address], [place] [address] Performed By: #### 2 432-8, 6-3 #### [facility] CLIA [id number] [address] STATES [place] #### 35352-8 #### [facility] CLIA [id number] 1 [place] [address] [place] [facility] CLIA [id number] [address] [place] [address] [place] Lipid 1996 panelon 5 Cholesterol [Mass/Vol] 177 mg/dL Normal <200 [facility] Comment on above: Order Comment: Speci men Type: BLOOD SPECIMEN Ordering Facility: [facility] Address: [address] [facility], [place] [address] Result Comment: <200 mg/dL, Desirable 200-239 mg/dL, Borderline high >239 mg/dL, High Performed By: #### 2 4323-8, 6-3 #### [facility] CLIA [id number] [address] [place] #### 61163-8 #### [facility] CLIA [id number] [address] CLIA [id number] [address] [place] [address] Cholesterol in HDL [Mass/Vol] 46 mg/dL Normal >39 [facility] Comment on above: Order Comment: Speci men Type: BLOOD SPECIMEN Ordering Facility: [facility] Address: [address] [place] [address] Result Comment: 40-5 9 mg/dL, Acceptable >59 mg/dL, High: Negative risk factor for coronary heart disease <40 mg/dL, Low: Positive risk factor for coronary heart disease Performed By: #### 2 4323-8, 6-3 #### [facility] CLIA [id number] [address] #### 72788-5 #### [facility] CLIA [id number] [address] STATES OF [facility] CLIA [id number] [address] [place] [address] [place] Cholesterol in LDL [Mass/Vol] 86 mg/dL Normal <100 [facility] Comment on above: Order Comment: Speci men Type: BLOOD SPECIMEN Ordering Facility: [facility] Address: [address] [place] [address] Result Comment: <100 mg/dL, Optimal 100-129 mg/dL, Near optimal/above optimal 130-159 mg/dL, Borderline high 160-189 mg/dL, High >189 mg/dL, Very high Secondary prevention optimal LDL Cholesterol levels are recommended to be < 70 mg/dL Performed By: #### 2 4323-8, 3016-3 #### [facility] CLIA [id number] [address] OF [facility] #### 82208-7 #### [facility] CLIA [id number] [address] STATES OF [facility] CLIA [id number] [address] [place] [address] Cholesterol in LDL/Cholesterol in HDL [Mass ratio] 1.87 {ratio} Normal <2.54 [facility] Comment on above: Order Comment: Speci men Type: BLOOD SPECIMEN Ordering Facility: [facility] Address: [address] [place] [address] Result Comment: Refe rence: 1. National Cholesterol Education Program ATP III Guideline At-A-Glance Quick Desk Reference: National Heart, Lung, and Blood [place]. National Institutes of Health. 2001: NIH Publication No. 01-3305. 2. An International Atherosclerosis Society position paper: global recommendations for the management of dyslipidemia: executive summary, Atherosclerosis. 2014: 232(2):410-413. Performed By: #### 2 4323-8, 3016-3 #### [facility] CLIA [id number] [address] #### 71909-4 #### [facility] CLIA [id number] [address] STATES OF [facility] CLIA [id number] [address] [place] [address] [place] Cholesterol in VLDL [Mass/Vol] 45 mg/dL High <30 [facility] Comment on above: Order Comment: Speci men Type: BLOOD SPECIMEN Ordering Facility: [facility] Address: [address] [place] [address] Performed By: #### 2 4323-8, 3016-3 #### [facility] CLIA [id number] [address] [place] #### 62838-8 #### [facility] CLIA [id number] [address] STATES OF [facility] CLIA [id number] [address] [place] [address] [place] Cholesterol non HDL [Mass/Vol] 131 mg/dL High <130 [facility] Comment on above: Order Comment: Speci men Type: BLOOD SPECIMEN Ordering Facility: [facility] Address: [address] [place] [address], [place] [address] Result Comment: <130 mg/dL, Optimal 130-159 mg/dL, Near optimal/above optimal 160-189 mg/dL, Borderline high 190-219 mg/dL, High >219 mg/dL, Very high Secondary prevention optimal non HDL Cholesterol levels are recommended to be <100 mg/dL Performed By: #### 2 3-8, 3016-3 #### [facility] CLIA [id number] [address] #### 78771-1 #### [facility] CLIA [id number] [address] CLIA [id number] [address] [place] [address] Cholesterol.total/Shanon sterol in HDL [Mass ratio] 3.85 {ratio} Normal <5.10 [facility] Comment on above: Order Comment: Speci men Type: BLOOD SPECIMEN Ordering Facility: [facility] Address: [address] [place] [address] Performed By: #### 2 4322-8, 6-3 #### [facility] CLIA [id number] [address] #### 55644-4 #### [facility] CLIA [id number] [address] CLIA [id number] [address] [place] [address] FASTING TIME 12 hrs Normal [facility] Comment on above: Order Comment: Speci men Type: BLOOD SPECIMEN Ordering Facility: [facility] Address: [facility] [facility], [place] [address] Performed By: #### 2 4323-8, 6-3 #### [facility] CLIA [id number] [address] #### 19510-4 #### [facility] CLIA [id number] [address] STATES OF [facility] CLIA [id number] [address] [place] [address] [place] Triglyceride [Mass/Vol] 226 mg/dL High <150 [facility] Comment on above: Order Comment: Speci men Type: BLOOD SPECIMEN Ordering Facility: [facility] Address: [address] [place] [address] Result Comment: <150 mg/dL, Normal 150-199 mg/dL, Borderline high 200-499 mg/dL, High >499 mg/dL, Very high Performed By: #### 2 4323-8, 6-3 #### [facility] CLIA [id number] [address] OF [facility] #### 64790-3 #### [facility] CLIA [id number] [address] CLIA [id number] [address] [place] [address] [place] TSH SerPl-aCncon 10-10-2024 TSH Qn 1.060 m[IU]/L Normal 0.270-4.20 0 [facility] Comment on above: Order Comment: Speci men Type: BLOOD SPECIMEN Ordering Facility: [facility] Address: [address] [place] [address] Performed By: #### 2 4323-8, 3016-3 #### [facility] CLIA [id number] [address] OF [place] #### 38176-0 #### [facility] CLIA [id number] [address] [place] [facility] CLIA [id number] [address] [place] [address] [place] Absolute lymphocyte countOrd ered By: Dr. Zarate on 01-03-2023 Lymphocytes Auto (Unsp spec) [#/Vol] 5.11 10*3/uL 0.83-4.51 [facility] Basophil percentageOrdered B y: Dr. Zarate on 01-03-2023 Basophils/100 WBC (Bld) 0.6 % 0-1 [facility] Chloride [Moles/Vol] 97 mmol/L 98-107 [place] Eosinophils/100 WBC (Bld) 3.2 % 0-5 [facility] Glucose [Mass/Vol] 504 mg/dL 74-106 [facility] Comment on above: Glucose result great er than or equal to 200 mg/dLsuggests DIABETES MELLITUS per A.D.A. criteria. Neutrophils (Bld) [#/Vol] 5.5 10*3/uL 2.0-7.7 [facility] Neutrophils/100 WBC (Bld) 45.8 % 47-70 [facility] Potassium [Moles/Vol] 4.7 mmol/L 3.5-5.1 [facility] Sodium [Moles/Vol] 132 mmol/L 136-145 [facility] WBC (Bld) [#/Vol] 12.1 10*3/uL 4.4-11.0 [facility] Blood erythrocytes count (nu mber/volume)Ordered By: Dr. Zarate on 01-03-2023 RBC (Bld) [#/Vol] 4.87 10*6/uL 4.6-6.2 [facility] Blood hemoglobin measurement (mass/volume)Ordered By: Dr. Zarate on 01-03-2023 Hemoglobin (Bld) [Mass/Vol] 12.7 g/dL 13.0-16.5 [facility] Blood lymphocytes/100 leukoc ytesOrdered By: Dr. Zarate on 01-03-2023 Lymphocytes/100 WBC (Bld) 42.3 % 19-41 [facility] Blood manual differential co mment interpretation (narrative result)Ordered By: Dr. Zarate on 01-03-2023 Manual differential comment Gigi (Bld) [Interp] SCANNED [facility] Comment on above: LYMPHOCYTOSIS NOTED Blood monocytes/100 leukocyt esOrdered By: [address] Zarate on 01-03-2023 Monocytes/100 WBC (Bld) 7.8 % 0-10 [facility] Blood platelet mean volumeOr dered By: Dr. Zarate on 01-03-2023 Platelet mean volume (Bld) [Entitic vol] 10.6 fL 6.2-12.0 [facility] Determination of erythrocyte mean corpuscular volume (MCV)Ordered By: Dr. Zarate on 01-03-2023 MCV (RBC) [Entitic vol] 81.9 fL 80-94 [facility] Glucose Glucometer (BldC) [M ass/Vol]Ordered By: Dr. Zarate on 01-03-2023 Glucose [Mass/Vol] 383 mg/dL 74-106 [facility] Comment on above: MANAGEMENT OF PATIEN T CARE PER NURSING PROTOCOL Hematocrit Auto (Bld) [Volum e fraction]Ordered By: Dr. Zarate on 01-03-2023 Hematocrit (Bld) [Volume fraction] 39.9 % 40-54 [facility] Laboratory - Chemistry and C hemistry - challengeOrdered By: Dr. Zarate on 01-03-2023 CO2 [Moles/Vol] 23.0 mmol/L 21.0-32.0 [facility] Urea nitrogen/Creatinine [Mass ratio] 17.2 mg/mg 10-20 [facility] Laboratory - Hematology and Cell countsOrdered By: Dr. Zarate on 01-03-2023 Erythrocyte distribution width (RBC) [Entitic vol] 41.9 fL 35.1-43.9 [facility] Erythrocyte distribution width (RBC) [Ratio] 14.3 % 11.6-14.6 [facility] Immature granulocytes/100 WBC (Bld) 0.300 % 0.0-0.9 [facility] Comment on above: IG% - Immature Granu locytes (promyelocytes, myelocytes and metamyelocytes) > 1% indicates that a LEFT SHIFT is Present. MCH (RBC) [Entitic mass] 26.1 pg 27.0-32.0 [facility] Nucleated RBC/100 WBC (Bld) [Ratio] 0 % 0-5 [facility] MCHC Auto (RBC) [Mass/Vol]Or dered By: Dr. Zarate on 01-03-2023 MCHC (RBC) [Mass/Vol] 31.8 g/dL 32-36 [facility] No Panel InformationOrdered By: Dr. Zarate on 01-03-2023 Estimated Creatinine Clearance Calc 122.45 ml/min [facility] Estimated GFR (MDRD) Amer 136 mL/min >60 [facility] Comment on above: GFR Calc Estimated GFR (MDRD) Non-Af Amer 113 mL/min >60 [facility] Comment on above: Non- GFR Calc Troponin I High Sensitivity 4 pg/mL 3.0-78.0 [facility] Comment on above: Critical Result(s) C alled at: 23:19:17 01/03/2023 by: MICHAEL COUGHLIN RN (ED) Results read back by same. Please Note: New Test Units and Gender Specific Reference Ranges. For more information see Policy Stat Procedure [place] High Sensitivity Troponin (TNIH) and attachments. Platelets bldOrdered By: Dr. Zarate on 01-03-2023 Platelets (Bld) [#/Vol] 357 10*3/uL 150-450 [facility] Serum or plasma calcium koby urement (mass/volume)Ordered By: Dr. Zarate on 01-03-2023 Calcium [Mass/Vol] 8.6 mg/dL 8.5-10.1 [facility] Serum or plasma creatinine m easurement (mass/volume)Ordered By: Dr. Zarate on 01-03-2023 Creatinine [Mass/Vol] 0.87 mg/dL 0.70-1.30 [facility] Comment on above: The validity of the calculated GFR & GFRAA in patients over 70 years has not been determined. Clinical correlation is essential. Serum or plasma urea nitroge n measurement (mass/volume)Ordered By: Dr. Zarate on 01-03-2023 Urea nitrogen [Mass/Vol] 15 mg/dL 7-18 [facility] Thin prep Papanicolaou smear with manual screeningOrdered By: Dr. Zarate on 01-03-2023 Thin prep Papanicolaou smear with manual screening 12 5-15 [facility] Absolute lymphocyte countOrd ered By: Dr. Lynn on 12-09-2022 Lymphocytes Auto (Unsp spec) [#/Vol] 4.06 10*3/uL 0.83-4.51 [facility] Basophil percentageOrdered B y: Dr. Lynn on 12-09-2022 Basophils/100 WBC (Bld) 0.6 % 0-1 [facility] Chloride [Moles/Vol] 96 mmol/L 98-107 [place] Eosinophils/100 WBC (Bld) 1.9 % 0-5 [facility] Glucose [Mass/Vol] 396 mg/dL 74-106 [facility] Comment on above: Glucose result great er than or equal to 200 mg/dLsuggests DIABETES MELLITUS per A.D.A. criteria. Neutrophils (Bld) [#/Vol] 4.6 10*3/uL 2.0-7.7 [facility] Neutrophils/100 WBC (Bld) 47.9 % 47-70 [facility] Potassium [Moles/Vol] 5.0 mmol/L 3.5-5.1 [facility] Sodium [Moles/Vol] 133 mmol/L 136-145 [facility] WBC (Bld) [#/Vol] 9.6 10*3/uL 4.4-11.0 [facility] Blood erythrocytes count (nu mber/volume)Ordered By: Dr. Lynn on 12-09-2022 RBC (Bld) [#/Vol] 6.66 10*6/uL 4.6-6.2 [facility] Blood hemoglobin measurement (mass/volume)Ordered By: Dr. Lynn on 12-09-2022 Hemoglobin (Bld) [Mass/Vol] 17.0 g/dL 13.0-16.5 [facility] Blood lymphocytes/100 leukoc ytesOrdered By: Dr. Lynn on 12-09-2022 Lymphocytes/100 WBC (Bld) 42.1 % 19-41 [facility] Blood monocytes/100 leukocyt esOrdered By: Dr. Lynn on 12-09-2022 Monocytes/100 WBC (Bld) 7.3 % 0-10 [facility] Blood platelet mean volumeOr dered By: Dr. Lynn on 12-09-2022 Platelet mean volume (Bld) [Entitic vol] 10.8 fL 6.2-12.0 [facility] Determination of erythrocyte mean corpuscular volume (MCV)Ordered By: Dr. Lynn on 12-09-2022 MCV (RBC) [Entitic vol] 79.4 fL 80-94 [facility] HCO3 (BldA) [Moles/Vol]Order ed By: Dr. Lynn on 12-09-2022 HCO3 (Bld) [Moles/Vol] 21 mmol/L 22-26 [facility] Hematocrit Auto (Bld) [Volum e fraction]Ordered By: Dr. Lynn on 12-09-2022 Hematocrit (Bld) [Volume fraction] 52.9 % 40-54 [facility] Laboratory - Chemistry and C hemistry - challengeOrdered By: Dr. Lynn on 12-09-2022 CO2 [Moles/Vol] 22 mmol/L 23-33 [facility] CO2 [Moles/Vol] 28.0 mmol/L 21.0-32.0 [facility] Natriuretic peptide B (Bld) [Mass/Vol] 2.7 pg/mL 0-100 [facility] Urea nitrogen/Creatinine [Mass ratio] 16.4 mg/mg 10-20 [facility] Laboratory - Hematology and Cell countsOrdered By: Dr. Lynn on 12-09-2022 Erythrocyte distribution width (RBC) [Entitic vol] 38.5 fL 35.1-43.9 [facility] Erythrocyte distribution width (RBC) [Ratio] 13.4 % 11.6-14.6 [facility] Immature granulocytes/100 WBC (Bld) 0.200 % 0.0-0.9 [facility] Comment on above: IG% - Immature Granu locytes (promyelocytes, myelocytes and metamyelocytes) > 1% indicates that a LEFT SHIFT is Present. MCH (RBC) [Entitic mass] 25.5 pg 27.0-32.0 [facility] Nucleated RBC/100 WBC (Bld) [Ratio] 0 % 0-5 [facility] MCHC Auto (RBC) [Mass/Vol]Or dered By: Dr. Lynn on 12-09-2022 MCHC (RBC) [Mass/Vol] 32.1 g/dL 32-36 [facility] No Panel InformationOrdered By: Dr. Lynn on 12-09-2022 Bed Mix Venous Bld PCO2 at Pat Temp 32.1 mmHg 41-51 [facility] Blood Gas Specimen Type JAIDEN [facility] Venous Blood Base Excess -3 mmol/L -1.0-3.5 [facility] D-Dimer Quantitative (PE/DVT) < 0.27 FEU/ug/m 0.27-0.49 [facility] Comment on above: NORMAL D-Dimer level (<0.50) indicates no DVT or PE. Estimated Creatinine Clearance Calc 91.04 ml/min [facility] Estimated GFR (MDRD) Amer 104 mL/min >60 [facility] Comment on above: GFR Calc Estimated GFR (MDRD) Non-Af Amer 86 mL/min >60 [facility] Comment on above: Non- GFR Calc Troponin I High Sensitivity 4 pg/mL 3.0-78.0 [facility] Comment on above: Please Note: New [place]ay[place] t Units and Gender Specific Reference Ranges. For more information see Policy Stat Procedure [place] High Sensitivity Troponin (TNIH) and attachments. PO2 venousOrdered By: Dr. Marry baxter on 12-09-2022 Oxygen (BldV) [Partial pressure] 53 mm[Hg] 25-40 [facility] Platelets bldOrdered By: Dr. Lynn on 12-09-2022 Platelets (Bld) [#/Vol] 405 10*3/uL 150-450 [facility] Serum or plasma acetone koby urement (mass/volume)Ordered By: Dr. Lynn on 12-09-2022 Acetone [Mass/Vol] Negative NEG [facility] Serum or plasma calcium koby urement (mass/volume)Ordered By: Dr. Lynn on 12-09-2022 Calcium [Mass/Vol] 10.6 mg/dL 8.5-10.1 [facility] Serum or plasma creatinine m easurement (mass/volume)Ordered By: Dr. Lynn on 12-09-2022 Creatinine [Mass/Vol] 1.10 mg/dL 0.70-1.30 [facility] Comment on above: The validity of the calculated GFR & GFRAA in patients over 70 years has not been determined. Clinical correlation is essential. Serum or plasma urea nitroge n measurement (mass/volume)Ordered By: Dr. Lynn on 12-09-2022 Urea nitrogen [Mass/Vol] 18 mg/dL 7-18 [facility] Thin prep Papanicolaou smear with manual screeningOrdered By: Dr. Lynn on 12-09-2022 Thin prep Papanicolaou smear with manual screening 9 5-15 [facility] Vital signsOrdered By: Dr. Vicky coello on 12-09-2022 Oxygen saturation in Blood 88 % 50-70 [facility] pH measurementOrdered By: Dr Shin Lynn on 12-09-2022 pH (Unsp spec) 7.43 [pH] 7.32-7.42 [facility] Absolute lymphocyte countOrd ered By: ED PROVIDER on 12-03-2022 Lymphocytes Auto (Unsp spec) [#/Vol] 3.71 10*3/uL 0.83-4.51 [facility] Basophil percentageOrdered B y: ED PROVIDER on 12-03-2022 Basophils/100 WBC (Bld) 0.4 % 0-1 [facility] Eosinophils/100 WBC (Bld) 2.0 % 0-5 [facility] Neutrophils (Bld) [#/Vol] 8.6 10*3/uL 2.0-7.7 [facility] Neutrophils/100 WBC (Bld) 62.3 % 47-70 [facility] WBC (Bld) [#/Vol] 13.8 10*3/uL 4.4-11.0 [facility] Basophil percentageOrdered B y: Dr. Calvillo on 12-03-2022 Chloride [Moles/Vol] 105 mmol/L 98-107 [place] Glucose [Mass/Vol] 64 mg/dL 74-106 [facility] Potassium [Moles/Vol] 3.6 mmol/L 3.5-5.1 [facility] Sodium [Moles/Vol] 138 mmol/L 136-145 [facility] Blood erythrocytes count (nu mber/volume)Ordered By: ED PROVIDER on 12-03-2022 RBC (Bld) [#/Vol] 5.14 10*6/uL 4.6-6.2 [facility] Blood hemoglobin measurement (mass/volume)Ordered By: ED PROVIDER on 12-03-2022 Hemoglobin (Bld) [Mass/Vol] 13.2 g/dL 13.0-16.5 [facility] Blood lymphocytes/100 leukoc ytesOrdered By: ED PROVIDER on 12-03-2022 Lymphocytes/100 WBC (Bld) 26.9 % 19-41 [facility] Blood monocytes/100 leukocyt esOrdered By: ED PROVIDER on 12-03-2022 Monocytes/100 WBC (Bld) 8.0 % 0-10 [facility] Blood platelet mean volumeOr dered By: ED PROVIDER on 12-03-2022 Platelet mean volume (Bld) [Entitic vol] 10.9 fL 6.2-12.0 [facility] Determination of erythrocyte mean corpuscular volume (MCV)Ordered By: ED PROVIDER on 12-03-2022 MCV (RBC) [Entitic vol] 84.0 fL 80-94 [facility] Hematocrit Auto (Bld) [Volum e fraction]Ordered By: ED PROVIDER on 12-03-2022 Hematocrit (Bld) [Volume fraction] 43.2 % 40-54 [facility] Laboratory - Chemistry and C hemistry - challengeOrdered By: Dr. Calvillo on 12-03-2022 CO2 [Moles/Vol] 28.0 mmol/L 21.0-32.0 [facility] Urea nitrogen/Creatinine [Mass ratio] 16.6 mg/mg 10-20 [facility] Laboratory - Hematology and Cell countsOrdered By: ED PROVIDER on 12-03-2022 Erythrocyte distribution width (RBC) [Entitic vol] 41.1 fL 35.1-43.9 [facility] Erythrocyte distribution width (RBC) [Ratio] 13.4 % 11.6-14.6 [facility] Immature granulocytes/100 WBC (Bld) 0.400 % 0.0-0.9 [facility] Comment on above: IG% - Immature Granu locytes (promyelocytes, myelocytes and metamyelocytes) > 1% indicates that a LEFT SHIFT is Present. MCH (RBC) [Entitic mass] 25.7 pg 27.0-32.0 [facility] Nucleated RBC/100 WBC (Bld) [Ratio] 0 % 0-5 [facility] MCHC Auto (RBC) [Mass/Vol]Or dered By: ED PROVIDER on 12-03-2022 MCHC (RBC) [Mass/Vol] 30.6 g/dL 32-36 [facility] No Panel InformationOrdered By: Dr. Calvillo on 12-03-2022 D-Dimer Quantitative (PE/DVT) 0.40 FEU/ug/m 0.27-0.49 [facility] Comment on above: NORMAL D-Dimer level (<0.50) indicates no DVT or PE. Estimated Creatinine Clearance Calc 159.00 ml/min [facility] Estimated GFR (MDRD) Amer 187 mL/min >60 [facility] Comment on above: GFR Calc Estimated GFR (MDRD) Non-Af Amer 155 mL/min >60 [facility] Comment on above: Non- GFR Calc Troponin I High Sensitivity 3 pg/mL 3.0-78.0 [facility] Comment on above: Please Note: New Nayla t Units and Gender Specific Reference Ranges. For more information see Policy Stat Procedure [place] High Sensitivity Troponin (TNIH) and attachments. Platelets bldOrdered By: ED PROVIDER on 12-03-2022 Platelets (Bld) [#/Vol] 348 10*3/uL 150-450 [facility] Serum or plasma calcium koby urement (mass/volume)Ordered By: Dr. Calvillo on 12-03-2022 Calcium [Mass/Vol] 8.9 mg/dL 8.5-10.1 [facility] Serum or plasma creatinine m easurement (mass/volume)Ordered By: Dr. Calvillo on 12-03-2022 Creatinine [Mass/Vol] 0.66 mg/dL 0.70-1.30 [facility] Comment on above: The validity of the calculated GFR & GFRAA in patients over 70 years has not been determined. Clinical correlation is essential. Serum or plasma urea nitroge n measurement (mass/volume)Ordered By: Dr. Calvillo on 12-03-2022 Urea nitrogen [Mass/Vol] 11 mg/dL 7-18 [facility] Thin prep Papanicolaou smear with manual screeningOrdered By: Dr. Calvillo on 12-03-2022 Thin prep Papanicolaou smear with manual screening 5 5-15 [facility] Absolute lymphocyte countOrd ered By: ED PROVIDER on 11-17-2022 Lymphocytes Auto (Unsp spec) [#/Vol] 4.55 10*3/uL 0.83-4.51 [facility] Basophil percentageOrdered B y: ED PROVIDER on 11-17-2022 Basophils/100 WBC (Bld) 0.5 % 0-1 [facility] Chloride [Moles/Vol] 103 mmol/L 98-107 [place] Eosinophils/100 WBC (Bld) 2.8 % 0-5 [facility] Glucose [Mass/Vol] 278 mg/dL 74-106 [facility] Comment on above: Glucose result great er than or equal to 200 mg/dLsuggests DIABETES MELLITUS per A.D.A. criteria. Neutrophils (Bld) [#/Vol] 5.8 10*3/uL 2.0-7.7 [facility] Neutrophils/100 WBC (Bld) 49.8 % 47-70 [facility] Potassium [Moles/Vol] 3.8 mmol/L 3.5-5.1 [facility] Sodium [Moles/Vol] 134 mmol/L 136-145 [facility] WBC (Bld) [#/Vol] 11.7 10*3/uL 4.4-11.0 [facility] Blood erythrocytes count (nu mber/volume)Ordered By: ED PROVIDER on 11-17-2022 RBC (Bld) [#/Vol] 5.10 10*6/uL 4.6-6.2 [facility] Blood hemoglobin measurement (mass/volume)Ordered By: ED PROVIDER on 11-17-2022 Hemoglobin (Bld) [Mass/Vol] 13.3 g/dL 13.0-16.5 [facility] Blood lymphocytes/100 leukoc ytesOrdered By: ED PROVIDER on 11-17-2022 Lymphocytes/100 WBC (Bld) 38.9 % 19-41 [facility] Blood monocytes/100 leukocyt esOrdered By: ED PROVIDER on 11-17-2022 Monocytes/100 WBC (Bld) 7.7 % 0-10 [facility] Blood platelet mean volumeOr dered By: ED PROVIDER on 11-17-2022 Platelet mean volume (Bld) [Entitic vol] 10.9 fL 6.2-12.0 [facility] Determination of erythrocyte mean corpuscular volume (MCV)Ordered By: ED PROVIDER on 11-17-2022 MCV (RBC) [Entitic vol] 80.6 fL 80-94 [facility] Hematocrit Auto (Bld) [Volum e fraction]Ordered By: ED PROVIDER on 11-17-2022 Hematocrit (Bld) [Volume fraction] 41.1 % 40-54 [facility] Laboratory - Chemistry and C hemistry - challengeOrdered By: ED PROVIDER on 11-17-2022 CO2 [Moles/Vol] 26.0 mmol/L 21.0-32.0 [facility] Urea nitrogen/Creatinine [Mass ratio] 17.0 mg/mg 10-20 [facility] Laboratory - Hematology and Cell countsOrdered By: ED PROVIDER on 11-17-2022 Erythrocyte distribution width (RBC) [Entitic vol] 37.6 fL 35.1-43.9 [facility] Erythrocyte distribution width (RBC) [Ratio] 12.8 % 11.6-14.6 [facility] Immature granulocytes/100 WBC (Bld) 0.300 % 0.0-0.9 [facility] Comment on above: IG% - Immature Granu locytes (promyelocytes, myelocytes and metamyelocytes) > 1% indicates that a LEFT SHIFT is Present. MCH (RBC) [Entitic mass] 26.1 pg 27.0-32.0 [facility] Nucleated RBC/100 WBC (Bld) [Ratio] 0 % 0-5 [facility] MCHC Auto (RBC) [Mass/Vol]Or dered By: ED PROVIDER on 11-17-2022 MCHC (RBC) [Mass/Vol] 32.4 g/dL 32-36 [facility] No Panel InformationOrdered By: ED PROVIDER on 11-17-2022 Estimated Creatinine Clearance Calc 127.57 ml/min [facility] Estimated GFR (MDRD) Amer 159 mL/min >60 [facility] Comment on above: GFR Calc Estimated GFR (MDRD) Non-Af Amer 131 mL/min >60 [facility] Comment on above: Non- GFR Calc Troponin I High Sensitivity < 3 pg/mL 3.0-78.0 [facility] Comment on above: Please Note: New Nayla t Units and Gender Specific Reference Ranges. For more information see Policy Stat Procedure [place] High Sensitivity Troponin (TNIH) and attachments. Platelets bldOrdered By: ED PROVIDER on 11-17-2022 Platelets (Bld) [#/Vol] 304 10*3/uL 150-450 [facility] Serum or plasma calcium koby urement (mass/volume)Ordered By: ED PROVIDER on 11-17-2022 Calcium [Mass/Vol] 9.1 mg/dL 8.5-10.1 [facility] Serum or plasma creatinine m easurement (mass/volume)Ordered By: ED PROVIDER on 11-17-2022 Creatinine [Mass/Vol] 0.76 mg/dL 0.70-1.30 [facility] Comment on above: The validity of the calculated GFR & GFRAA in patients over 70 years has not been determined. Clinical correlation is essential. Serum or plasma urea nitroge n measurement (mass/volume)Ordered By: ED PROVIDER on 11-17-2022 Urea nitrogen [Mass/Vol] 13 mg/dL 7-18 [facility] Thin prep Papanicolaou smear with manual screeningOrdered By: ED PROVIDER on 11-17-2022 Thin prep Papanicolaou smear with manual screening 5 5-15 [facility] Absolute lymphocyte countOrd ered By: Dr. Palomino on 10-13-2022 Lymphocytes Auto (Unsp spec) [#/Vol] 3.87 10*3/uL 0.83-4.51 [facility] Basophil percentageOrdered B y: Dr. Palomino on 10-13-2022 Basophils/100 WBC (Bld) 0.8 % 0-1 [facility] Chloride [Moles/Vol] 105 mmol/L 98-107 [place] Eosinophils/100 WBC (Bld) 4.3 % 0-5 [facility] Glucose [Mass/Vol] 243 mg/dL 74-106 [facility] Comment on above: Glucose result great er than or equal to 200 mg/dLsuggests DIABETES MELLITUS per A.D.A. criteria. Neutrophils (Bld) [#/Vol] 3.8 10*3/uL 2.0-7.7 [facility] Neutrophils/100 WBC (Bld) 43.5 % 47-70 [facility] Potassium [Moles/Vol] 3.4 mmol/L 3.5-5.1 [facility] Sodium [Moles/Vol] 140 mmol/L 136-145 [facility] WBC (Bld) [#/Vol] 8.8 10*3/uL 4.4-11.0 [facility] Blood erythrocytes count (nu mber/volume)Ordered By: Dr. Palomino on 10-13-2022 RBC (Bld) [#/Vol] 5.14 10*6/uL 4.6-6.2 [facility] Blood hemoglobin measurement (mass/volume)Ordered By: Dr. Palomino on 10-13-2022 Hemoglobin (Bld) [Mass/Vol] 13.3 g/dL 13.0-16.5 [facility] Blood lymphocytes/100 leukoc ytesOrdered By: Dr. Palomino on 10-13-2022 Lymphocytes/100 WBC (Bld) 44.1 % 19-41 [facility] Blood monocytes/100 leukocyt esOrdered By: Dr. Palomino on 10-13-2022 Monocytes/100 WBC (Bld) 7.2 % 0-10 [facility] Blood platelet mean volumeOr dered By: Dr. Palomino on 10-13-2022 Platelet mean volume (Bld) [Entitic vol] 10.4 fL 6.2-12.0 [facility] Determination of erythrocyte mean corpuscular volume (MCV)Ordered By: Dr. Palomino on 10-13-2022 MCV (RBC) [Entitic vol] 83.7 fL 80-94 [facility] Hematocrit Auto (Bld) [Volum e fraction]Ordered By: Dr. Palomino on 10-13-2022 Hematocrit (Bld) [Volume fraction] 43.0 % 40-54 [facility] Laboratory - Chemistry and C hemistry - challengeOrdered By: Dr. Palomino on 10-13-2022 CO2 [Moles/Vol] 27.0 mmol/L 21.0-32.0 [facility] Urea nitrogen/Creatinine [Mass ratio] 13.8 mg/mg 10-20 [facility] Laboratory - Hematology and Cell countsOrdered By: Dr. Palomino on 10-13-2022 Erythrocyte distribution width (RBC) [Entitic vol] 41.9 fL 35.1-43.9 [facility] Erythrocyte distribution width (RBC) [Ratio] 13.6 % 11.6-14.6 [facility] Immature granulocytes/100 WBC (Bld) 0.100 % 0.0-0.9 [facility] Comment on above: IG% - Immature Granu locytes (promyelocytes, myelocytes and metamyelocytes) > 1% indicates that a LEFT SHIFT is Present. MCH (RBC) [Entitic mass] 25.9 pg 27.0-32.0 [facility] Nucleated RBC/100 WBC (Bld) [Ratio] 0 % 0-5 [facility] MCHC Auto (RBC) [Mass/Vol]Or dered By: Dr. Palomino on 10-13-2022 MCHC (RBC) [Mass/Vol] 30.9 g/dL 32-36 [facility] No Panel InformationOrdered By: Dr. Palomino on 10-13-2022 Estimated Creatinine Clearance Calc 131.33 ml/min [facility] Estimated GFR (MDRD) Amer 169 mL/min >60 [facility] Comment on above: GFR Calc Estimated GFR (MDRD) Non-Af Amer 140 mL/min >60 [facility] Comment on above: Non- GFR Calc Troponin I High Sensitivity 4 pg/mL 3.0-78.0 [facility] Comment on above: Please Note: New Nayla t Units and Gender Specific Reference Ranges. For more information see Policy Stat Procedure [place] High Sensitivity Troponin (TNIH) and attachments. Platelets bldOrdered By: Dr. Palomino on 10-13-2022 Platelets (Bld) [#/Vol] 309 10*3/uL 150-450 [facility] Serum or plasma calcium koby urement (mass/volume)Ordered By: Dr. Palomino on 10-13-2022 Calcium [Mass/Vol] 8.8 mg/dL 8.5-10.1 [facility] Serum or plasma creatinine m easurement (mass/volume)Ordered By: Dr. Palomino on 10-13-2022 Creatinine [Mass/Vol] 0.72 mg/dL 0.70-1.30 [facility] Comment on above: The validity of the calculated GFR & GFRAA in patients over 70 years has not been determined. Clinical correlation is essential. Serum or plasma urea nitroge n measurement (mass/volume)Ordered By: Dr. Palomino on 10-13-2022 Urea nitrogen [Mass/Vol] 10 mg/dL 7-18 [facility] Thin prep Papanicolaou smear with manual screeningOrdered By: Dr. Palomino on 10-13-2022 Thin prep Papanicolaou smear with manual screening 8 5-15 [facility] Absolute lymphocyte countOrd ered By: Dr. Reed on 08-24-2022 Lymphocytes Auto (Unsp spec) [#/Vol] 5.98 10*3/uL 0.83-4.51 [facility] Basophil percentageOrdered B y: Dr. Reed on 08-24-2022 Basophils/100 WBC (Bld) 0.3 % 0-1 [facility] Chloride [Moles/Vol] 103 mmol/L 98-107 [place] Eosinophils/100 WBC (Bld) 5.5 % 0-5 [facility] Glucose [Mass/Vol] 52 mg/dL 74-106 [facility] Neutrophils (Bld) [#/Vol] 3.8 10*3/uL 2.0-7.7 [facility] Neutrophils/100 WBC (Bld) 30.5 % 47-70 [facility] Potassium [Moles/Vol] 3.0 mmol/L 3.5-5.1 [facility] Sodium [Moles/Vol] 142 mmol/L 136-145 [facility] WBC (Bld) [#/Vol] 12.6 10*3/uL 4.4-11.0 [facility] Blood erythrocytes count (nu mber/volume)Ordered By: Dr. Reed on 08-24-2022 RBC (Bld) [#/Vol] 5.40 10*6/uL 4.6-6.2 [facility] Blood hemoglobin measurement (mass/volume)Ordered By: Dr. Reed on 08-24-2022 Hemoglobin (Bld) [Mass/Vol] 14.0 g/dL 13.0-16.5 [facility] Blood lymphocytes/100 leukoc ytesOrdered By: Dr. Reed on 08-24-2022 Lymphocytes/100 WBC (Bld) 47.4 % 19-41 [facility] Blood manual differential co mment interpretation (narrative result)Ordered By: Dr. Reed on 08-24-2022 Manual differential comment Gigi (Bld) [Interp] SCANNED [facility] Blood monocytes/100 leukocyt esOrdered By: Dr. Reed on 08-24-2022 Monocytes/100 WBC (Bld) 16.0 % 0-10 [facility] Blood platelet mean volumeOr dered By: Dr. Reed on 08-24-2022 Platelet mean volume (Bld) [Entitic vol] 10.5 fL 6.2-12.0 [facility] Determination of erythrocyte mean corpuscular volume (MCV)Ordered By: Dr. Reed on 08-24-2022 MCV (RBC) [Entitic vol] 81.5 fL 80-94 [facility] Hematocrit Auto (Bld) [Volum e fraction]Ordered By: Dr. Reed on 08-24-2022 Hematocrit (Bld) [Volume fraction] 44.0 % 40-54 [facility] Laboratory - Chemistry and C hemistry - challengeOrdered By: Dr. Reed on 08-24-2022 CO2 [Moles/Vol] 32.0 mmol/L 21.0-32.0 [facility] Urea nitrogen/Creatinine [Mass ratio] 16.8 mg/mg 10-20 [facility] Laboratory - Hematology and Cell countsOrdered By: Dr. Reed on 08-24-2022 Erythrocyte distribution width (RBC) [Entitic vol] 40.7 fL 35.1-43.9 [facility] Erythrocyte distribution width (RBC) [Ratio] 14.0 % 11.6-14.6 [facility] Immature granulocytes/100 WBC (Bld) 0.300 % 0.0-0.9 [facility] Comment on above: IG% - Immature Granu locytes (promyelocytes, myelocytes and metamyelocytes) > 1% indicates that a LEFT SHIFT is Present. MCH (RBC) [Entitic mass] 25.9 pg 27.0-32.0 [facility] Nucleated RBC/100 WBC (Bld) [Ratio] 0 % 0-5 [facility] MCHC Auto (RBC) [Mass/Vol]Or dered By: Dr. Reed on 08-24-2022 MCHC (RBC) [Mass/Vol] 31.8 g/dL 32-36 [facility] Comment on above: Delta: 33.6 on 08/20-0407 No Panel InformationOrdered By: Dr. Reed on 08-24-2022 Estimated Creatinine Clearance Calc 143.27 ml/min [facility] Estimated GFR (MDRD) Amer 190 mL/min >60 [facility] Comment on above: GFR Calc Estimated GFR (MDRD) Non-Af Amer 157 mL/min >60 [facility] Comment on above: Non- GFR Calc Reactive Lymphocytes 1+ [place] Platelets bldOrdered By: Dr. Reed on 08-24-2022 Platelets (Bld) [#/Vol] 492 10*3/uL 150-450 [facility] Review by pathologistOrdered By: Dr. Reed on 08-24-2022 Pathologist review Gigi (Unsp spec) [Interp] Louisa wiseman [facility] Pathologist review Gigi (Unsp spec) [Interp] Reviewed [facility] Comment on above: Previous reported re sult: Louisa wiseman Edited by: [email or web address] on 08/26/22:0938Leukocytosis. Thrombocytosis.Clinical correlation necessary.Herson Olivas M.D. 08/26/22 AMENDED REPORT 08/26/22 0938 PATH REV previously reported as: Louisa wiseman Serum or plasma calcium koby urement (mass/volume)Ordered By: Dr. Reed on 08-24-2022 Calcium [Mass/Vol] 9.4 mg/dL 8.5-10.1 [facility] Serum or plasma creatinine m easurement (mass/volume)Ordered By: Dr. Reed on 08-24-2022 Creatinine [Mass/Vol] 0.66 mg/dL 0.70-1.30 [facility] Comment on above: The validity of the calculated GFR & GFRAA in patients over 70 years has not been determined. Clinical correlation is essential. Serum or plasma urea nitroge n measurement (mass/volume)Ordered By: Dr. Reed on 08-24-2022 Urea nitrogen [Mass/Vol] 11 mg/dL 7-18 [facility] Thin prep Papanicolaou smear with manual screeningOrdered By: Dr. Reed on 08-24-2022 Thin prep Papanicolaou smear with manual screening 7 5-15 [facility] Absolute lymphocyte countOrd ered By: Dr. Cruz on 08-20-2022 Lymphocytes Auto (Unsp spec) [#/Vol] 3.61 10*3/uL 0.83-4.51 [facility] Basophil percentageOrdered B y: Dr. Cruz on 08-20-2022 Basophils/100 WBC (Bld) 0.2 % 0-1 [facility] Chloride [Moles/Vol] 104 mmol/L 98-107 [place] Eosinophils/100 WBC (Bld) 0.2 % 0-5 [facility] Glucose [Mass/Vol] 162 mg/dL 74-106 [facility] Comment on above: Fasting Glucose resu lt greater than or equal to 126 mg/dL suggests DIABETES MELLITUS per A.D.A. criteria. Neutrophils (Bld) [#/Vol] 7.8 10*3/uL 2.0-7.7 [facility] Neutrophils/100 WBC (Bld) 60.1 % 47-70 [facility] Potassium [Moles/Vol] 3.0 mmol/L 3.5-5.1 [facility] Sodium [Moles/Vol] 141 mmol/L 136-145 [facility] WBC (Bld) [#/Vol] 13.0 10*3/uL 4.4-11.0 [facility] Blood erythrocytes count (nu mber/volume)Ordered By: Dr. Cruz on 08-20-2022 RBC (Bld) [#/Vol] 4.34 10*6/uL 4.6-6.2 [facility] Blood hemoglobin measurement (mass/volume)Ordered By: Dr. Cruz on 08-20-2022 Hemoglobin (Bld) [Mass/Vol] 11.7 g/dL 13.0-16.5 [facility] Blood lymphocytes/100 leukoc ytesOrdered By: Dr. Cruz on 08-20-2022 Lymphocytes/100 WBC (Bld) 27.7 % 19-41 [facility] Blood monocytes/100 leukocyt esOrdered By: Dr. Cruz on 08-20-2022 Monocytes/100 WBC (Bld) 11.4 % 0-10 [facility] Blood platelet mean volumeOr dered By: Dr. Cruz on 08-20-2022 Platelet mean volume (Bld) [Entitic vol] 10.1 fL 6.2-12.0 [facility] Determination of erythrocyte mean corpuscular volume (MCV)Ordered By: Dr. Cruz on 08-20-2022 MCV (RBC) [Entitic vol] 80.2 fL 80-94 [facility] Glucose Glucometer (BldC) [M ass/Vol]Ordered By: Dr. Cruz on 08-20-2022 Glucose [Mass/Vol] 120 mg/dL 74-106 [facility] Comment on above: MANAGEMENT OF PATIEN T CARE PER NURSING PROTOCOL Hematocrit Auto (Bld) [Volum e fraction]Ordered By: Dr. Cruz on 08-20-2022 Hematocrit (Bld) [Volume fraction] 34.8 % 40-54 [facility] Laboratory - Chemistry and C hemistry - challengeOrdered By: Dr. Cruz on 08-20-2022 CO2 [Moles/Vol] 31.0 mmol/L 21.0-32.0 [facility] Urea nitrogen/Creatinine [Mass ratio] 18.1 mg/mg 10-20 [facility] Laboratory - Hematology and Cell countsOrdered By: Dr. Cruz on 08-20-2022 Erythrocyte distribution width (RBC) [Entitic vol] 42.3 fL 35.1-43.9 [facility] Erythrocyte distribution width (RBC) [Ratio] 14.5 % 11.6-14.6 [facility] Immature granulocytes/100 WBC (Bld) 0.400 % 0.0-0.9 [facility] Comment on above: IG% - Immature Granu locytes (promyelocytes, myelocytes and metamyelocytes) > 1% indicates that a LEFT SHIFT is Present. MCH (RBC) [Entitic mass] 27.0 pg 27.0-32.0 [facility] Nucleated RBC/100 WBC (Bld) [Ratio] 0 % 0-5 [facility] MCHC Auto (RBC) [Mass/Vol]Or dered By: Dr. Cruz on 08-20-2022 MCHC (RBC) [Mass/Vol] 33.6 g/dL 32-36 [facility] No Panel InformationOrdered By: Dr. Cruz on 08-20-2022 Estimated Creatinine Clearance Calc 189.05 ml/min [facility] Estimated GFR (MDRD) Amer 232 mL/min >60 [facility] Comment on above: GFR Calc Estimated GFR (MDRD) Non-Af Amer 191 mL/min >60 [facility] Comment on above: Non- GFR Calc Platelets bldOrdered By: Dr. rCuz on 08-20-2022 Platelets (Bld) [#/Vol] 254 10*3/uL 150-450 [facility] Serum or plasma calcium koby urement (mass/volume)Ordered By: Dr. Cruz on 08-20-2022 Calcium [Mass/Vol] 8.0 mg/dL 8.5-10.1 [facility] Serum or plasma creatinine m easurement (mass/volume)Ordered By: Dr. Cruz on 08-20-2022 Creatinine [Mass/Vol] 0.55 mg/dL 0.70-1.30 [facility] Comment on above: The validity of the calculated GFR & GFRAA in patients over 70 years has not been determined. Clinical correlation is essential. Serum or plasma urea nitroge n measurement (mass/volume)Ordered By: Dr. Cruz on 08-20-2022 Urea nitrogen [Mass/Vol] 10 mg/dL 7-18 [facility] Thin prep Papanicolaou smear with manual screeningOrdered By: Dr. Cruz on 08-20-2022 Thin prep Papanicolaou smear with manual screening 6 5-15 [facility] Throat Streptococcus pyogene s antigen detection by immunofluorescenceOrdered By: Dr. Cruz on 08-20-2022 S. pyogenes Ag IF Ql (Throat) [facility] Review by pathologistOrdered By: Dr. Cruz on 08-19-2022 Pathologist review Gigi (Unsp spec) [Interp] Reviewed [facility] Comment on above: Previous reported re sult: Louisa wiseman Edited by: RGOOD on 08/20/22:930Neutrophilic leukocytosis.Clinical correlation necessary.Herson Olivas M.D. 08/20/22 AMENDED REPORT 08/20/22 0931 PATH REV previously reported as: Louisa wiseman Basophil percentageOrdered B y: Dr. Handy on 08-18-2022 Lactate [Moles/Vol] 1.2 mmol/L 0.4-2.0 [facility] Basophil percentage 7.9 mg/dL 2.5-4.9 [facility] Basophil percentageOrdered B y: Dr. Cruz on 08-18-2022 Basophil percentage 0 SEEN /hpf 0-5 [place] Bilirubin [Mass/Vol] 0.70 mg/dL 0.20-1.00 [place] Comment on above: For patients on eltr ombopag therapy, use of Dimension [place] TBIL is not recommended. Protein [Mass/Vol] 7.2 g/dL 6.4-8.2 [facility] Bilirubin Test strip Ql (U)O rdered By: Dr. Cruz on 08-18-2022 Bilirubin Ql (U) Negative Negative [facility] Blood manual differential co mment interpretation (narrative result)Ordered By: Dr. Handy on 08-18-2022 Manual differential comment Gigi (Bld) [Interp] SCANNED [facility] Direct bilirubinOrdered By: Dr. Cruz on 08-18-2022 Bilirubin.direct [Mass/Vol] 0.13 mg/dL 0.00-0.30 [facility] HCO3 (BldA) [Moles/Vol]Order ed By: Dr. Cruz on 08-18-2022 HCO3 (Bld) [Moles/Vol] 4 mmol/L - [facility] Ketones Test strip Ql (U)Ord ered By: Dr. Cruz on 08-18-2022 Ketones Ql (U) 150 mg/dl Negative [facility] Comment on above: CRITICAL VALUE *HCRI TICAL VALUE VERIFIED. CALLED TO JOSE CARLOS ROGERS (ICU)08/18/22 1516 Walt Hoff.RESULTS READ BACK BY SAME. Laboratory - Chemistry and C hemistry - challengeOrdered By: Dr. Cruz on 08-18-2022 ALP [Catalytic activity/Vol] 178 U/L 45-117 [facility] ALT [Catalytic activity/Vol] 18 U/L 16-61 [facility] Globulin (S) [Mass/Vol] 4.0 g/dL 2.2-4.2 [facility] Laboratory - Chemistry and C hemistry - challengeOrdered By: Dr. Handy on 08-18-2022 Lipase [Catalytic activity/Vol] 34 U/L 73-393 [facility] Magnesium [Mass/Vol] 3.2 mg/dL 1.6-2.6 [place] Laboratory - Microbiology an d Antimicrobial susceptibilityOrdered By: Dr. Cruz on 08-18-2022 SARS-CoV-2 (COVID-19) RNA LM+probe Ql (Unsp spec) Not detected Not Detect [facility] Comment on above: Normal Reference [...] and RNA 12b panel LM+probe (Unsp spec) [facility] Mucus LM Ql (Urine sed)Order ed By: Dr. Cruz on 08-18-2022 Mucus Ql (Urine sed) 0 SEEN /hpf [facility] Nitrite Test strip Ql (U)Ord ered By: Dr. Cruz on 08-18-2022 Nitrite Ql (U) Negative Negative [facility] No Panel InformationOrdered By: Dr. Cruz on 08-18-2022 Bed Mix Venous Bld PCO2 at Pat Temp 13.9 mmHg 41-51 [facility] Bld Gas Crit Called To/Read Back By Yes [facility] Blood Gas Notified Time 10:17:05 [facility] Blood Gas Notified Whom rozina [facility] Blood Gas Specimen Type JAIDEN [facility] Oxygen Delivery Device Room Air [facility] Venous Blood Base Excess -25 mmol/L -1.0-3.5 [facility] Venous Blood Total Carbon Dioxide < 5 mmol/L 23-33 [facility] PO2 venousOrdered By: Dr. David guillory on 08-18-2022 Oxygen (BldV) [Partial pressure] 64 mm[Hg] 25-40 [facility] Protein Test strip Ql (U)Ord ered By: Dr. Cruz on 08-18-2022 Protein Ql (U) 15 mg/dl Negative [facility] Serum or plasma acetone koby urement (mass/volume)Ordered By: Dr. Handy on 08-18-2022 Acetone [Mass/Vol] LARGE NEG [facility] Serum or plasma albumin koby urement (mass/volume)Ordered By: Dr. Cruz on 08-18-2022 Albumin [Mass/Vol] 3.2 g/dL 3.2-5.0 [facility] Squamous epithelial cells de tection in urine sediment by light microscopyOrdered By: Dr. Cruz on 08-18-2022 Epithelial cells.squamous LM Ql (Urine sed) 0 SEEN /hpf 0-5 [facility] Thin prep Papanicolaou smear with manual screeningOrdered By: Dr. Cruz on 08-18-2022 Thin prep Papanicolaou smear with manual screening 3 U/L 15-37 [facility] Urine blood detectionOrdered By: Dr. Cruz on 08-18-2022 RBC Ql (U) Negative Negative [facility] RBC Ql (U) 0 SEEN /hpf 0-5 [facility] Urine clarityOrdered By: Dr. Cruz on 08-18-2022 Clarity (U) Clear Clear [facility] Urine color determinationOrd ered By: Dr. Cruz on 08-18-2022 Color (U) Straw Yellow [facility] Urine glucose detectionOrder ed By: Dr. Cruz on 08-18-2022 Glucose Ql (U) 1000 mg/dl Normal [facility] Urine leukocyte esterase det ection by dipstickOrdered By: Dr. Cruz on 08-18-2022 Leukocyte esterase Test strip Ql (U) Negative Negative [facility] Urine pHOrdered By: Dr. Karla green on 08-18-2022 pH (U) 5.0 [pH] 5.0 - 8.0 [facility] Urine sediment bacteria coun t by microscopy (number/high power field)Ordered By: Dr. Cruz on 08-18-2022 Bacteria LM.HPF (Urine sed) [#/Area] 0 /[HPF] None Seen [facility] Urine specific gravity measu rementOrdered By: Dr. Cruz on 08-18-2022 Specific gravity (U) [Rel density] 1.020 1.002-1.03 0 [facility] Urobilinogen Auto test strip Ql (U)Ordered By: Dr. Cruz on 08-18-2022 Urobilinogen Ql (U) Normal mg/dl Normal [facility] Vital signsOrdered By: Dr. Bladimir hernandez on 08-18-2022 Oxygen saturation in Blood 84 % 50-70 [facility] Whole blood hemoglobin A1c/t otal hemoglobin ratio (mass fraction)Ordered By: Dr. Handy on 08-18-2022 HbA1c (Bld) [Mass fraction] 10.7 % 3.8-5.6 [facility] Comment on above: Normal < 5.7 % Predi abetic 5.7 - 6.4 % Diabetic >or= 6.5 % Please note range changes. pH measurementOrdered By: Dr Shin Cruz on 08-18-2022 pH (Unsp spec) 7.10 [pH] 7.32-7.42 [facility] Absolute lymphocyte countOrd ered By: Lourdes Metz on 07-07-2022 Lymphocytes Auto (Unsp spec) [#/Vol] 1.75 10*3/uL 0.83-4.51 [facility] Basophil percentageOrdered B y: Lourdes Metz on 07-07-2022 Basophils/100 WBC (Bld) 0.4 % 0-1 [facility] Chloride [Moles/Vol] 95 mmol/L 98-107 [place] Eosinophils/100 WBC (Bld) 0.4 % 0-5 [facility] Glucose [Mass/Vol] 376 mg/dL 74-106 [facility] Comment on above: Glucose result great er than or equal to 200 mg/dLsuggests DIABETES MELLITUS per A.D.A. criteria. Neutrophils (Bld) [#/Vol] 4.7 10*3/uL 2.0-7.7 [facility] Neutrophils/100 WBC (Bld) 62.7 % 47-70 [facility] Potassium [Moles/Vol] 3.6 mmol/L 3.5-5.1 [facility] Sodium [Moles/Vol] 133 mmol/L 136-145 [facility] WBC (Bld) [#/Vol] 7.5 10*3/uL 4.4-11.0 [facility] Blood erythrocytes count (nu mber/volume)Ordered By: Lourdes Metz on 07-07-2022 RBC (Bld) [#/Vol] 5.38 10*6/uL 4.6-6.2 [facility] Blood hemoglobin measurement (mass/volume)Ordered By: Lourdes Metz on 07-07-2022 Hemoglobin (Bld) [Mass/Vol] 14.3 g/dL 13.0-16.5 [facility] Blood lymphocytes/100 leukoc ytesOrdered By: Lourdes Metz on 07-07-2022 Lymphocytes/100 WBC (Bld) 23.2 % 19-41 [facility] Blood monocytes/100 leukocyt esOrdered By: Lourdes Metz on 07-07-2022 Monocytes/100 WBC (Bld) 13.0 % 0-10 [facility] Blood platelet mean volumeOr dered By: Lourdes Metz on 07-07-2022 Platelet mean volume (Bld) [Entitic vol] 11.2 fL 6.2-12.0 [facility] Determination of erythrocyte mean corpuscular volume (MCV)Ordered By: Lourdes Metz on 07-07-2022 MCV (RBC) [Entitic vol] 81.0 fL 80-94 [facility] Glucose Glucometer (BldC) [M ass/Vol]Ordered By: Dr. Mcclain on 07-07-2022 Glucose [Mass/Vol] 158 mg/dL 74-106 [facility] Comment on above: MANAGEMENT OF PATIEN T CARE PER NURSING PROTOCOL Hematocrit Auto (Bld) [Volum e fraction]Ordered By: Lourdes Metz on 07-07-2022 Hematocrit (Bld) [Volume fraction] 43.6 % 40-54 [facility] Influenza virus A and B and SARS-CoV-2 (COVID-19) Ag panel - Upper respiratory specimOrdered By: Lourdes Metz on 07-07-2022 SARS-CoV-2 & FLU Antigen (Rapid) SARS-CoV-2 (COVID 19) [facility] Laboratory - Chemistry and C hemistry - challengeOrdered By: Lourdes Metz on 07-07-2022 CO2 [Moles/Vol] 29.0 mmol/L 21.0-32.0 [facility] Urea nitrogen/Creatinine [Mass ratio] 10.0 mg/mg 10-20 [facility] Laboratory - Hematology and Cell countsOrdered By: Lourdes Metz on 07-07-2022 Erythrocyte distribution width (RBC) [Entitic vol] 41.0 fL 35.1-43.9 [facility] Erythrocyte distribution width (RBC) [Ratio] 14.0 % 11.6-14.6 [facility] Immature granulocytes/100 WBC (Bld) 0.300 % 0.0-0.9 [facility] Comment on above: IG% - Immature Granu locytes (promyelocytes, myelocytes and metamyelocytes) > 1% indicates that a LEFT SHIFT is Present. MCH (RBC) [Entitic mass] 26.6 pg 27.0-32.0 [facility] Nucleated RBC/100 WBC (Bld) [Ratio] 0 % 0-5 [facility] MCHC Auto (RBC) [Mass/Vol]Or dered By: Lourdes Metz on 07-07-2022 MCHC (RBC) [Mass/Vol] 32.8 g/dL 32-36 [facility] No Panel InformationOrdered By: Lourdes Metz on 07-07-2022 D-Dimer Quantitative (PE/DVT) 0.28 FEU/ug/m 0.27-0.49 [facility] Comment on above: NORMAL D-Dimer level (<0.50) indicates no DVT or PE. Estimated Creatinine Clearance Calc 109.25 ml/min [facility] Estimated GFR (MDRD) Amer 117 mL/min >60 [facility] Comment on above: GFR Calc Estimated GFR (MDRD) Non-Af Amer 97 mL/min >60 [facility] Comment on above: Non- GFR Calc Troponin I High Sensitivity 4 pg/mL 3.0-78.0 [facility] Comment on above: Please Note: New Nayla t Units and Gender Specific Reference Ranges. For more information see Policy Stat Procedure [place] High Sensitivity Troponin (TNIH) and attachments. Platelets bldOrdered By: Graham Metz on 07-07-2022 Platelets (Bld) [#/Vol] 260 10*3/uL 150-450 [facility] Serum or plasma calcium koby urement (mass/volume)Ordered By: Lourdes Metz on 07-07-2022 Calcium [Mass/Vol] 8.8 mg/dL 8.5-10.1 [facility] Serum or plasma creatinine m easurement (mass/volume)Ordered By: Lourdes Metz on 07-07-2022 Creatinine [Mass/Vol] 1.00 mg/dL 0.70-1.30 [facility] Comment on above: The validity of the calculated GFR & GFRAA in patients over 70 years has not been determined. Clinical correlation is essential. Serum or plasma urea nitroge n measurement (mass/volume)Ordered By: Lourdes Metz on 07-07-2022 Urea nitrogen [Mass/Vol] 10 mg/dL 7-18 [facility] Thin prep Papanicolaou smear with manual screeningOrdered By: Lourdesgeronimo Metz on 07-07-2022 Thin prep Papanicolaou smear with manual screening 9 5-15 [facility] Glucose Glucometer (BldC) [M ass/Vol]Ordered By: Dr. Zarate on 07-01-2022 Glucose [Mass/Vol] 85 mg/dL 74-106 [facility] Comment on above: MANAGEMENT OF PATIEN T CARE PER NURSING PROTOCOL Serum or plasma acetone koby urement (mass/volume)Ordered By: Dr. Zarate on 07-01-2022 Acetone [Mass/Vol] MODERATE NEG [facility] Absolute lymphocyte countOrd ered By: Dr. Zarate on 06-30-2022 Lymphocytes Auto (Unsp spec) [#/Vol] 4.64 10*3/uL 0.83-4.51 [facility] Basophil percentageOrdered B y: Dr. Zarate on 06-30-2022 Basophils/100 WBC (Bld) 0.8 % 0-1 [facility] Chloride [Moles/Vol] 97 mmol/L 98-107 [place] Eosinophils/100 WBC (Bld) 5.2 % 0-5 [facility] Glucose [Mass/Vol] 569 mg/dL 74-106 [facility] Comment on above: Critical Result(s) C alled at: 23:51:55 06/30/2022 by: Jorge A Tamayo TO CURT HORN RN (ED) Results read back by same.Glucose result greater than or equal to 200 mg/dLsuggests DIABETES MELLITUS per A.D.A. criteria. Neutrophils (Bld) [#/Vol] 5.9 10*3/uL 2.0-7.7 [facility] Neutrophils/100 WBC (Bld) 48.9 % 47-70 [facility] Potassium [Moles/Vol] 4.2 mmol/L 3.5-5.1 [facility] Sodium [Moles/Vol] 134 mmol/L 136-145 [facility] WBC (Bld) [#/Vol] 12.1 10*3/uL 4.4-11.0 [facility] Blood erythrocytes count (nu mber/volume)Ordered By: Dr. Zarate on 06-30-2022 RBC (Bld) [#/Vol] 5.32 10*6/uL 4.6-6.2 [facility] Blood hemoglobin measurement (mass/volume)Ordered By: Dr. Zarate on 06-30-2022 Hemoglobin (Bld) [Mass/Vol] 14.0 g/dL 13.0-16.5 [facility] Blood lymphocytes/100 leukoc ytesOrdered By: Dr. Zarate on 06-30-2022 Lymphocytes/100 WBC (Bld) 38.4 % 19-41 [facility] Blood monocytes/100 leukocyt esOrdered By: Dr. Zarate on 06-30-2022 Monocytes/100 WBC (Bld) 6.0 % 0-10 [facility] Blood platelet mean volumeOr dered By: Dr. Zarate on 06-30-2022 Platelet mean volume (Bld) [Entitic vol] 10.6 fL 6.2-12.0 [facility] Determination of erythrocyte mean corpuscular volume (MCV)Ordered By: Dr. Zarate on 06-30-2022 MCV (RBC) [Entitic vol] 80.3 fL 80-94 [facility] Hematocrit Auto (Bld) [Volum e fraction]Ordered By: Dr. Zarate on 06-30-2022 Hematocrit (Bld) [Volume fraction] 42.7 % 40-54 [facility] Laboratory - Chemistry and C hemistry - challengeOrdered By: Dr. Zarate on 06-30-2022 CO2 [Moles/Vol] 22.0 mmol/L 21.0-32.0 [facility] Urea nitrogen/Creatinine [Mass ratio] 15.8 mg/mg 10-20 [facility] Laboratory - Hematology and Cell countsOrdered By: Dr. Zarate on 06-30-2022 Erythrocyte distribution width (RBC) [Entitic vol] 39.7 fL 35.1-43.9 [facility] Erythrocyte distribution width (RBC) [Ratio] 13.7 % 11.6-14.6 [facility] Immature granulocytes/100 WBC (Bld) 0.700 % 0.0-0.9 [facility] Comment on above: IG% - Immature Granu locytes (promyelocytes, myelocytes and metamyelocytes) > 1% indicates that a LEFT SHIFT is Present. MCH (RBC) [Entitic mass] 26.3 pg 27.0-32.0 [facility] Nucleated RBC/100 WBC (Bld) [Ratio] 0 % 0-5 [facility] MCHC Auto (RBC) [Mass/Vol]Or dered By: Dr. Zarate on 06-30-2022 MCHC (RBC) [Mass/Vol] 32.8 g/dL 32-36 [facility] No Panel InformationOrdered By: Dr. Zarate on 06-30-2022 D-Dimer Quantitative (PE/DVT) < 0.27 FEU/ug/m 0.27-0.49 [facility] Comment on above: NORMAL D-Dimer level (<0.50) indicates no DVT or PE. Estimated Creatinine Clearance Calc 97.16 ml/min [facility] Estimated GFR (MDRD) Amer 95 mL/min >60 [facility] Comment on above: GFR Calc Estimated GFR (MDRD) Non-Af Amer 78 mL/min >60 [facility] Comment on above: Non- GFR Calc Troponin I High Sensitivity 4 pg/mL 3.0-78.0 [facility] Comment on above: Please Note: New Nayla t Units and Gender Specific Reference Ranges. For more information see Policy Stat Procedure [place] High Sensitivity Troponin (TNIH) and attachments. Platelets bldOrdered By: Dr. Zarate on 06-30-2022 Platelets (Bld) [#/Vol] 456 10*3/uL 150-450 [facility] Serum or plasma calcium koby urement (mass/volume)Ordered By: Dr. Zarate on 06-30-2022 Calcium [Mass/Vol] 8.8 mg/dL 8.5-10.1 [facility] Serum or plasma creatinine m easurement (mass/volume)Ordered By: Dr. Zarate on 06-30-2022 Creatinine [Mass/Vol] 1.20 mg/dL 0.70-1.30 [facility] Comment on above: The validity of the calculated GFR & GFRAA in patients over 70 years has not been determined. Clinical correlation is essential. Serum or plasma urea nitroge n measurement (mass/volume)Ordered By: Dr. Zarate on 06-30-2022 Urea nitrogen [Mass/Vol] 19 mg/dL 7-18 [facility] Thin prep Papanicolaou smear with manual screeningOrdered By: Dr. Zarate on 06-30-2022 Thin prep Papanicolaou smear with manual screening 15 5-15 [facility] Absolute lymphocyte counton 03-03-2022 Lymphocytes Auto (Unsp spec) [#/Vol] 3.87 10*3/uL 0.83-4.51 [facility] Work Phone: Basophil percentageon 2021 Basophils/100 WBC (Bld) 0.3 % 0-1 [facility] Work Phone: Chloride [Moles/Vol] 113 mmol/L 98-107 [place] Work Phone: Eosinophils/100 WBC (Bld) 1.7 % 0-5 [facility] Work Phone: Glucose [Mass/Vol] 71 mg/dL 74-106 [facility] Work Phone: Neutrophils (Bld) [#/Vol] 8.9 10*3/uL 2.0-7.7 [facility] Work Phone: Neutrophils/100 WBC (Bld) 62.2 % 47-70 [facility] Work Phone: Potassium [Moles/Vol] 3.6 mmol/L 3.5-5.1 [facility] Work [facility]: Sodium [Moles/Vol] 142 mmol/L 136-145 [facility] Work Phone: WBC (Bld) [#/Vol] 14.3 10*3/uL 4.4-11.0 [facility] Work Phone: Blood erythrocytes count (nu mber/volume)on 03-03-2022 RBC (Bld) [#/Vol] 4.58 10*6/uL 4.6-6.2 [facility] Work Phone: Blood hemoglobin measurement (mass/volume)on 03-03-2022 Hemoglobin (Bld) [Mass/Vol] 12.6 g/dL 13.0-16.5 [facility] Work Phone: Blood lymphocytes/100 leukoc yteson 03-03-2022 Lymphocytes/100 WBC (Bld) 27.0 % 19-41 [facility] Work Phone: Blood monocytes/100 leukocyt eson 03-03-2022 Monocytes/100 WBC (Bld) 8.2 % 0-10 [facility] Work Phone: Blood platelet mean volumeon 03-03-2022 Platelet mean volume (Bld) [Entitic vol] 9.4 fL 6.2-12.0 [facility] Work Phone: Determination of erythrocyte mean corpuscular volume (MCV)on 03-03-2022 MCV (RBC) [Entitic vol] 83.6 fL 80-94 [facility] Work Phone: Comment on above: Delta: 91.7 on 03/02-1025 Glucose Glucometer (BldC) [M ass/Vol]on 03-03-2022 Glucose [Mass/Vol] 224 mg/dL 74-106 [facility] Work Phone: Comment on above: MANAGEMENT OF PATIEN T CARE PER NURSING PROTOCOL Hematocrit Auto (Bld) [Volum e fraction]on 03-03-2022 Hematocrit (Bld) [Volume fraction] 38.3 % 40-54 [facility] Work Phone: Laboratory - Chemistry and C hemistry - challengeon 03-03-2022 CO2 [Moles/Vol] 21.0 mmol/L 21.0-32.0 [facility] Work Phone: Urea nitrogen/Creatinine [Mass ratio] 14.9 mg/mg 10-20 [facility] Work Phone: Laboratory - Hematology and Cell countson 03-03-2022 Erythrocyte distribution width (RBC) [Entitic vol] 43.5 fL 35.1-43.9 [facility] Work Phone: Erythrocyte distribution width (RBC) [Ratio] 14.3 % 11.6-14.6 [facility] Work Phone: Immature granulocytes/100 WBC (Bld) 0.600 % 0.0-0.9 [facility] Work Phone: Comment on above: IG% - Immature Granu locytes (promyelocytes, myelocytes and metamyelocytes) > 1% indicates that a LEFT SHIFT is Present. MCH (RBC) [Entitic mass] 27.5 pg 27.0-32.0 [facility] Work Phone: Nucleated RBC/100 WBC (Bld) [Ratio] 0 % 0-5 [facility] Work Phone: MCHC Auto (RBC) [Mass/Vol]on 03-03-2022 MCHC (RBC) [Mass/Vol] 32.9 g/dL 32-36 [facility] Work Phone: Comment on above: Delta: 29.6 on 03/02-1026 No Panel Informationon 03-03 Estimated Creatinine Clearance Calc 111.61 ml/min [facility] Work Phone: Estimated GFR (MDRD) Amer 150 mL/min >60 [facility] Work Phone: Comment on above: GFR Calc Estimated GFR (MDRD) Non-Af Amer 124 mL/min >60 [facility] Work Phone: Comment on above: Non- GFR Calc Platelets bldon 03-03-2022 Platelets (Bld) [#/Vol] 345 10*3/uL 150-450 [facility] Work Phone: Serum or plasma calcium koby urement (mass/volume)on 03-03-2022 Calcium [Mass/Vol] 7.9 mg/dL 8.5-10.1 [facility] Work Phone: Serum or plasma creatinine m easurement (mass/volume)on 03-03-2022 Creatinine [Mass/Vol] 0.81 mg/dL 0.70-1.30 [facility] Work Phone: Comment on above: The validity of the calculated GFR & GFRAA in patients over 70 years has not been determined. Clinical correlation is essential. Serum or plasma urea nitroge n measurement (mass/volume)on 03-03-2022 Urea nitrogen [Mass/Vol] 12 mg/dL 7-18 [facility] Work Phone: Thin prep Papanicolaou smear with manual screeningon 03-03-2022 Thin prep Papanicolaou smear with manual screening 8 5-15 [facility] Work Phone: Absolute lymphocyte counton 2022 Lymphocytes Auto (Unsp spec) [#/Vol] 4.87 10*3/uL 0.83-4.51 [facility] Work Phone: Basophil percentageon 2021 Basophil percentage 0 SEEN /hpf 0-5 [place] Work Phone: Basophil percentage 9.1 mg/dL 2.5-4.9 [facility] Work Phone: Comment on above: Critical Result(s) C alled at: 11:23:45 2022 by: Renita Butt [employer]. Results read back by [employer]. Basophils/100 WBC (Bld) 0.9 % 0-1 [facility] Work Phone: Bilirubin [Mass/Vol] 0.60 mg/dL 0.20-1.00 [place] Work Phone: Comment on above: For patients on eltr ombopag therapy, use of Dimension [place] TBIL is not recommended. Chloride [Moles/Vol] 86 mmol/L 98-107 [place] Work Phone: Eosinophils/100 WBC (Bld) 0.8 % 0-5 [facility] Work Phone: Glucose [Mass/Vol] 852 mg/dL 74-106 [facility] Work Phone: Comment on above: Critical Result(s) C alled at: 11:23:45 2022 by: Renita Butt [employer]. Results read back by same.Glucose result greater than or equal to 200 mg/dLsuggests DIABETES MELLITUS per A.D.A. criteria. Neutrophils (Bld) [#/Vol] 11.8 10*3/uL 2.0-7.7 [facility] Work Phone: Neutrophils/100 WBC (Bld) 64.6 % 47-70 [facility] Work Phone: Potassium [Moles/Vol] 5.2 mmol/L 3.5-5.1 [facility] Work Phone: Protein [Mass/Vol] 9.0 g/dL 6.4-8.2 [facility] Work Phone: Sodium [Moles/Vol] 128 mmol/L 136-145 [facility] Work Phone: WBC (Bld) [#/Vol] 18.3 10*3/uL 4.4-11.0 [facility] Work Phone: Bilirubin Test strip Ql (U)o n 2022 Bilirubin Ql (U) Negative Negative [facility] Work Phone: Blood erythrocytes count (nu mber/volume)on 2022 RBC (Bld) [#/Vol] 6.11 10*6/uL 4.6-6.2 [facility] Work Phone: Blood hemoglobin measurement (mass/volume)on 2022 Hemoglobin (Bld) [Mass/Vol] 16.6 g/dL 13.0-16.5 [facility] Work Phone: Blood lymphocytes/100 leukoc yteson 2022 Lymphocytes/100 WBC (Bld) 26.6 % 19-41 [facility] Work Phone: Blood monocytes/100 leukocyt eson 2022 Monocytes/100 WBC (Bld) 5.5 % 0-10 [facility] Work Phone: Blood platelet mean volumeon 2022 Platelet mean volume (Bld) [Entitic vol] 10.7 fL 6.2-12.0 [facility] Work Phone: Determination of erythrocyte mean corpuscular volume (MCV)on 2022 MCV (RBC) [Entitic vol] 91.7 fL 80-94 [facility] Work Phone: Hematocrit Auto (Bld) [Volum e fraction]on 2022 Hematocrit (Bld) [Volume fraction] 56.0 % 40-54 [facility] Work Phone: Ketones Test strip Ql (U)on 2022 Ketones Ql (U) 150 mg/dl Negative [facility] Work Phone: Comment on above: CRITICAL VALUE VERIF IED. CALLED TO ODETTE MCADAMS RN (ICU)03/02/22 1845 Ney Navarro.RESULTS READ BACK BY SAME . CRITICAL VALUE *H Laboratory - Chemistry and C hemistry - challengeon 2022 ALP [Catalytic activity/Vol] 288 U/L 45-117 [facility] Work Phone: ALT [Catalytic activity/Vol] 62 U/L 16-61 [facility] Work Phone: CK [Catalytic activity/Vol] 44 U/L 39-308 [facility] Work Phone: CO2 [Moles/Vol] 10.0 mmol/L 21.0-32.0 [facility] Work Phone: Globulin (S) [Mass/Vol] 4.9 g/dL 2.2-4.2 [facility] Work Phone: Magnesium [Mass/Vol] 2.6 mg/dL 1.6-2.6 [place] Work Phone: Urea nitrogen/Creatinine [Mass ratio] 17.3 mg/mg 10-20 [facility] Work Phone: Laboratory - Hematology and Cell countson 2022 Erythrocyte distribution width (RBC) [Entitic vol] 47.6 fL 35.1-43.9 [facility] Work Phone: Erythrocyte distribution width (RBC) [Ratio] 14.2 % 11.6-14.6 [facility] Work Phone: Immature granulocytes/100 WBC (Bld) 1.600 % 0.0-0.9 [facility] Work Phone: Comment on above: IG% - Immature Granu locytes (promyelocytes, myelocytes and metamyelocytes) > 1% indicates that a LEFT SHIFT is Present. MCH (RBC) [Entitic mass] 27.2 pg 27.0-32.0 [facility] Work Phone: Nucleated RBC/100 WBC (Bld) [Ratio] 0 % 0-5 [facility] Work Phone: MCHC Auto (RBC) [Mass/Vol]on 2022 MCHC (RBC) [Mass/Vol] 29.6 g/dL 32-36 [facility] Work Phone: Mucus LM Ql (Urine sed)on Mucus Ql (Urine sed) 0 SEEN /hpf [facility] Work Phone: Nitrite Test strip Ql (U)on 2022 Nitrite Ql (U) Negative Negative [facility] Work Phone: No Panel Informationon 03-02 Estimated Creatinine Clearance Calc 60.37 ml/min [facility] Work Phone: Estimated GFR (MDRD) Amer 67 mL/min >60 [facility] Work Phone: Comment on above: GFR Calc Estimated GFR (MDRD) Non-Af Amer 56 mL/min >60 [facility] Work Phone: Comment on above: Non- GFR Calc Platelets bldon 2022 Platelets (Bld) [#/Vol] 518 10*3/uL 150-450 [facility] Work Phone: Protein Test strip Ql (U)on 2022 Protein Ql (U) 30 mg/dl Negative [facility] Work Phone: Serum or plasma acetone koby urement (mass/volume)on 2022 Acetone [Mass/Vol] MODERATE NEG [facility] Work Phone: Serum or plasma albumin koby urement (mass/volume)on 2022 Albumin [Mass/Vol] 4.1 g/dL 3.2-5.0 [facility] Work Phone: Serum or plasma albumin/glob ulin mass ratioon 2022 Albumin/Globulin [Mass ratio] 0.8 {ratio} 0.9-2.4 [facility] Work Phone: Serum or plasma calcium koby urement (mass/volume)on 2022 Calcium [Mass/Vol] 9.4 mg/dL 8.5-10.1 [facility] Work Phone: Serum or plasma creatinine m easurement (mass/volume)on 2022 Creatinine [Mass/Vol] 1.62 mg/dL 0.70-1.30 [facility] Work Phone: Comment on above: The validity of the calculated GFR & GFRAA in patients over 70 years has not been determined. Clinical correlation is essential. Serum or plasma urea nitroge n measurement (mass/volume)on 2022 Urea nitrogen [Mass/Vol] 28 mg/dL 7-18 [facility] Work Phone: Squamous epithelial cells de tection in urine sediment by light microscopyon 2022 Epithelial cells.squamous LM Ql (Urine sed) 0 SEEN /hpf 0-5 [facility] Work Phone: Thin prep Papanicolaou smear with manual screeningon 2022 Thin prep Papanicolaou smear with manual screening 16 U/L 15-37 [facility] Work Phone: Thin prep Papanicolaou smear with manual screening 32 5-15 [facility] Work Phone: Urine blood detectionon 02-07 RBC Ql (U) Negative Negative [facility] Work Phone: RBC Ql (U) 0 SEEN /hpf 0-5 [facility] Work Phone: Urine clarityon 2022 Clarity (U) Clear Clear [facility] Work Phone: Urine coarse granular cast d etectionon 2022 Coarse Granular Casts LM Ql (Urine sed) 5-10 SEEN /lpf 0-5 /lpf [facility] Work Phone: Urine color determinationon 2022 Color (U) Yellow Yellow [facility] Work Phone: Urine glucose detectionon Glucose Ql (U) 1000 mg/dl Normal [facility] Work Phone: Urine leukocyte esterase det ection by dipstickon 2022 Leukocyte esterase Test strip Ql (U) Negative Negative [facility] Work Phone: Urine pHon 2022 pH (U) 5.0 [pH] 5.0 - 8.0 [facility] Work Phone: Urine sediment bacteria coun t by microscopy (number/high power field)on 2022 Bacteria LM.HPF (Urine sed) [#/Area] 1 /[HPF] None Seen [facility] Work Phone: Urine specific gravity measu rementon 2022 Specific gravity (U) [Rel density] 1.025 1.002-1.03 0 [facility] Work Phone: Urobilinogen Auto test strip Ql (U)on 2022 Urobilinogen Ql (U) Normal mg/dl Normal [facility] Work Phone: CT HEAD W/O CONTRASTon 04-21 CT HEAD W/O CONTRAST Performed at [facility] APPROVED BY: Elkin Mays MD EXAMINATION: [...] ALLIED HEALTHon 03-23-2018 ALLIED HEALTH HNO ID: [id number]: Zoila Ram) Mary Burgoservice: Spiritual CareAuthor Type: ChaplainType: Allied HealthFiled: 03/23/2018 10:44 AMNote Text: SPIRITUALCARESpiritual Care Visit- Brief NoteName: Una CosbyMRN: [id number]: March 23, 2018Notes: Delivered scrubs for pt Cha plain Signature: Claudy Lind contact the Spiritual Care Department:Please call [phone] or Page the On-Call Stitching Machine Operator at pager [phone] you for the opportunity to be of service.This is an electronically created document.IF PRINTED, PLEASE DO NOT REMOVE FROM THE CHART OR MODIFY PRINTED COPY. Normal [facility] Basic Panelon 03-23-2018 Creatinine mass conc 0.39 mg/dL Low 0.67-1.17 [facility] Comment on above: Performed By: #### A PTT ####[place] [address] Glucose mass conc 270 mg/dL High 70-99 [facility] Comment on above: Performed By: #### A PTT ####[facility] [place], [place] [address] Urea nitrogen mass conc 8 mg/dL Normal 7-18 [facility] Comment on above: Performed By: #### A PTT ####[facility] [place], [place] [address] Anion gap 3 molar conc 14 mmol/L Normal 8-16 [facility] Comment on above: Performed By: #### A PTT ####[facility] [place], [place] [address] Calcium mass conc 7.6 mg/dL Low 8.5-10.1 [facility] Comment on above: Performed By: #### A PTT ####[facility] [place], [place] [address] CO2 molar conc 26 mmol/L Normal 21-32 [facility] Comment on above: Performed By: #### A PTT ####[address] [address] Chloride molar conc 97 mmol/L Low 98-107 [facility] Comment on above: Performed By: #### A PTT ####[facility] [place], [place] [address] Potassium molar conc 3.7 mmol/L Normal 3.5-5.1 [facility] Comment on above: Performed By: #### A PTT ####[facility] [place], [place] [address] Sodium molar conc 133 mmol/L Low 136-145 [facility] Comment on above: Performed By: #### A PTT ####[facility] [place], [place] [address] CASE MANAGEMon 03-23-2018 CASE MANAGEM HNO ID: [id number]: Heena Hay) Divya RNService: Care ManagementAuthor Type: Registered NurseType: Care Mgt Progress NoteFiled: 03/23/2018 9:49 AMNote Text:CARE MANAGEMENT PROGRESS NOTESERVICE DATE: 03/23/2018SERVICE TIME: 0948 LOS: 3 daysNeeds Prior to Discharge: Accepting Facility;InsuranceAutho rization;Discharge TransportationPT/OT recommending acute rehab at discharge--patient agreeable; [facility]. Await acceptance. Patient will need cottransportation at discharge.SIGNATURE: Heena Stokes RN PATIENT NAME: Una CosbyDATE: March 23, 2018 : 9:48 AM PAGER/CONTACT #: [phone] [facility] CNDSon 03-23-2018 CNDS HNO ID: [id number]: Patricio Peguero) LyleService: TraumaAuthor Type: Physician AssistantType: Discharge SummariesFiled: 03/23/2018 1:51 PMNote Text: DISCHARGE SUMMARYPATIENT NAME: Una Cosby Code Status: Not on fileMRN: [id number] Readmission Risk Score: 22 The 30 day [...] Patient/Parents to call for appointment?: Yes Aubrey Albina [phone] [place] [address] PCP Requested Referral Follow-Up Appointment PCP: Please contact your Primary Care Physician to schedule a follow-upappointment regarding your Diabetes and adequate blood sugar control in 1week. When: In 1 week Patient/Parents to call for appointment?: Yes Ron [phone] [address] [place] [address] PCP Requested ReferralAdditional Provider to Provider Information:No notes on fileTransitions of Care Critical Issues:NALABS AND PROCEDURES PENDING AT DISCHARGE: No pending results.FOLLOW-UP APPOINTMENTS ALREADY SCHEDULED WITH A [facility] PROVIDER:Follow-up appointments to be scheduled by [...] Change Levemir to preferred insulin Lantus SolostarInsulin Hughson, Disposable, (BD ULTRAFINE III MINI PEN) 31 [...] #:DATE: March 23, 2018TIME: 1:49 PM Normal [facility] CONSULT PROGon 03-23-2018 Protein mass conc HNO ID: [id number]: Lui BradleyhaService: EndocrinologyAuthor Type: PhysicianType: Consult Progress NoteFiled: 03/23/2018 [...] results. Last 24 hr BS reviewed.Recent Labs 03/23/1802106 207 814 610 500 03/20/1816GLUC -- 270* [...] 2018 : 9:15 AM PAGER: [phone] Normal [facility] Glucose Meteron 03-23-2018 Glucose mass conc mg/dL High 70-99 [facility] Comment on above: Result Comment: KEN HINES Performed By: #### U RIN2 ####[place] [address] Hemogram/Diffon 03-23-2018 Abs Immature Grans 0.03 thou/cmm Normal 0.00-0.05 [facility] Comment on above: Performed By: #### A PTT ####[place] [address] Abs. Baso 0.02 thou/cmm Normal 0.01-0.08 [facility] Comment on above: Performed By: #### A PTT ####[place] [address] Abs. [place] 0.53 thou/cmm Normal 0.30-0.82 [facility] Comment on above: Performed By: #### A PTT ####[place] [address] Abs. Neut (ANC) 3.97 thou/cmm Normal 1.78-5.38 [facility] Comment on above: Performed By: #### A PTT ####[place] [address] Basophils/100 WBC Auto (Bld) 0.3 % Normal [facility] Comment on above: Performed By: #### A PTT ####[place] [address] Eosinophils Auto #/vol (Bld) 0.32 thou/cmm Normal 0.04-0.54 [facility] Comment on above: Performed By: #### A PTT ####[place] [address] Eosinophils/100 WBC Auto (Bld) 4.3 % Normal [facility] Comment on above: Performed By: #### A PTT ####[facility] [place] [address] Erythrocyte distribution width Auto Ratio (RBC) 19.7 % High 11.6-14.4 [facility] Comment on above: Performed By: #### A PTT ####[place] [address] Hematocrit Auto Volume Fraction (Bld) 34.4 % Low 40.1-51.0 [facility] Comment on above: Performed By: #### A PTT ####[place] [address] Hemoglobin mass conc (Bld) 10.2 g/dL Low 13.7-17.5 [facility] Comment on above: Performed By: #### A PTT ####[place] [address] Immature Grans 0.40 % Normal [facility] Comment on above: Performed By: #### A PTT ####[place] [address] Lymphocytes Auto #/vol (Bld) 2.60 thou/cmm Normal 0.84-2.85 [facility] Comment on above: Performed By: #### A PTT ####[place] [address] Lymphocytes/100 WBC Auto (Bld) 34.8 % Normal [facility] Comment on above: Performed By: #### A PTT ####[place] [address] MCH Auto Entitic mass (RBC) 20.9 pg Low 25.7-32.2 [facility] Comment on above: Performed By: #### A PTT ####[place] [address] MCHC Auto mass conc (RBC) 29.7 % Low 32.3-36.5 [facility] Comment on above: Performed By: #### A PTT ####[place] [address] MCV Auto Entitic volume (RBC) 70.5 fL Low 83.2-95.6 [facility] Comment on above: Performed By: #### A PTT ####[facility] [place], [place] [address] Monocytes/100 WBC Auto (Bld) 7.1 % Normal [facility] Comment on above: Performed By: #### A PTT ####[facility] [place], [place] [address] Platelet mean volume Auto Entitic volume (Bld) 10.8 fL Normal 8.7-12.0 [facility] Comment on above: Performed By: #### A PTT ####[facility] [place], [place] [address] Platelets Auto #/vol (Bld) 230 thou/cmm Normal 141-365 [facility] Comment on above: Performed By: #### A PTT ####[address] [address] RBC Auto #/vol (Bld) 4.88 mil/cmm Normal 4.63-6.08 [facility] Comment on above: Performed By: #### A PTT ####[address] [address] RDW SD 48.3 fl High 36.1-45.8 [facility] Comment on above: Performed By: #### A PTT ####[address] [address] Seg Neutrophil 53.1 % Normal [facility] Comment on above: Performed By: #### A PTT ####[address] [address] WBC Auto #/vol (Bld) 7.48 thou/cmm Normal 4.23-9.07 [facility] Comment on above: Performed By: #### A PTT ####[place] [address] MDRD GFRon 03-23-2018 GFR/1.73 sq M predicted among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 [facility] Comment on above: Result Comment: [facility] glucose is a screening procedure. The bedside glucosestrip is calibrated to deliver plasma glucose levels. Glucosemeter values <45 mg/dl and >450 mg/dl must be confirmed with aplasma or whole blood glucose performed in the lab. Wholeblood glucose results are 10-15% lower than plasma glucoseresults. Performed By: #### G LUM ####[address] [phone] Glucose mass conc 272 mg/dL High 60-110 [facility] Comment on above: Result Comment: [facility]ie glucose is a screening procedure. The bedside glucosestrip is calibrated to deliver plasma glucose levels. Glucosemeter values <45 mg/dl and >450 mg/dl must be confirmed with aplasma or whole blood glucose performed in the lab. Wholeblood glucose results are 10-15% lower than plasma glucoseresults. Performed By: #### G LUM ####[address] [phone] Glucose by [facility] 8 Glucose mass conc 326 mg/dL High 60-110 [facility] Comment on above: Result Comment: [facility]ie glucose is a screening procedure. The bedside glucosestrip is calibrated to deliver plasma glucose levels. Glucosemeter values <45 mg/dl and >450 mg/dl must be confirmed with aplasma or whole blood glucose performed in the lab. Wholeblood glucose results are 10-15% lower than plasma glucoseresults. Performed By: #### G LUM ####[address] [phone] Glucose mass conc 260 mg/dL High 60-110 [facility] Comment on above: Result Comment: [facility] glucose is a screening procedure. The bedside glucosestrip is calibrated to deliver plasma glucose levels. Glucosemeter values <45 mg/dl and >450 mg/dl must be confirmed with aplasma or whole blood glucose performed in the lab. Wholeblood glucose results are 10-15% lower than plasma glucoseresults. Performed By: #### G LUM ####[address] [phone] Glucose mass conc 264 mg/dL High 60-110 [facility] Comment on above: Result Comment: [facility]ie glucose is a screening procedure. The bedside glucosestrip is calibrated to deliver plasma glucose levels. Glucosemeter values <45 mg/dl and >450 mg/dl must be confirmed with aplasma or whole blood glucose performed in the lab. Wholeblood glucose results are 10-15% lower than plasma glucoseresults. Performed By: #### G LUM ####[address] [phone] Glucose mass conc 302 mg/dL High 60-110 [facility] Comment on above: Result Comment: [facility] glucose is a screening procedure. The bedside glucosestrip is calibrated to deliver plasma glucose levels. Glucosemeter values <45 mg/dl and >450 mg/dl must be confirmed with aplasma or whole blood glucose performed in the lab. Wholeblood glucose results are 10-15% lower than plasma glucoseresults. Performed By: #### G LUM ####[address] [phone] Glucose mass conc 255 mg/dL High 60-110 [facility] Comment on above: Result Comment: [facility] glucose is a screening procedure. The bedside glucosestrip is calibrated to deliver plasma glucose levels. Glucosemeter values <45 mg/dl and >450 mg/dl must be confirmed with aplasma or whole blood glucose performed in the lab. Wholeblood glucose results are 10-15% lower than plasma glucoseresults. Performed By: #### G LUM ####[address] [phone] Glucose by [facility] 11-30- 8 Glucose mass conc 324 mg/dL High 60-110 [facility] Comment on above: Result Comment: [facility] glucose is a screening procedure. The bedside glucosestrip is calibrated to deliver plasma glucose levels. Glucosemeter values <45 mg/dl and >450 mg/dl must be confirmed with aplasma or whole blood glucose performed in the lab. Wholeblood glucose results are 10-15% lower than plasma glucoseresults. Performed By: #### G LUM ####[address] [phone] Glucose mass conc 302 mg/dL High 60-110 [facility] Comment on above: Result Comment: [facility] glucose is a screening procedure. The bedside glucosestrip is calibrated to deliver plasma glucose levels. Glucosemeter values <45 mg/dl and >450 mg/dl must be confirmed with aplasma or whole blood glucose performed in the lab. Wholeblood glucose results are 10-15% lower than plasma glucoseresults. Performed By: #### G LUM ####[address] [phone] Glucose mass conc 249 mg/dL High 60-110 [facility] Comment on above: Result Comment: [facility] glucose is a screening procedure. The bedside glucosestrip is calibrated to deliver plasma glucose levels. Glucosemeter values <45 mg/dl and >450 mg/dl must be confirmed with aplasma or whole blood glucose performed in the lab. Wholeblood glucose results are 10-15% lower than plasma glucoseresults. Performed By: #### G LUM ####[address] [phone] Glucose mass conc 275 mg/dL High 60-110 [facility] Comment on above: Result Comment: [facility]ie glucose is a screening procedure. The bedside glucosestrip is calibrated to deliver plasma glucose levels. Glucosemeter values <45 mg/dl and >450 mg/dl must be confirmed with aplasma or whole blood glucose performed in the lab. Wholeblood glucose results are 10-15% lower than plasma glucoseresults. Performed By: #### G LUM ####[address] [phone] Glucose mass conc 281 mg/dL High 60-110 [facility] Comment on above: Result Comment: Beds hollie glucose is a screening procedure. The bedside glucosestrip is calibrated to deliver plasma glucose levels. Glucosemeter values <45 mg/dl and >450 mg/dl must be confirmed with aplasma or whole blood glucose performed in the lab. Wholeblood glucose results are 10-15% lower than plasma glucoseresults. Performed By: #### G LUM ####[address] [phone] Glucose by Meteron 8 Glucose mass conc 305 mg/dL High 60-110 [facility] Comment on above: Result Comment: Beds hollie glucose is a screening procedure. The bedside glucosestrip is calibrated to deliver plasma glucose levels. Glucosemeter values <45 mg/dl and >450 mg/dl must be confirmed with aplasma or whole blood glucose performed in the lab. Wholeblood glucose results are 10-15% lower than plasma glucoseresults. Performed By: #### G LUM ####[address] [phone] Glucose mass conc 329 mg/dL High 60-110 [facility] Comment on above: Result Comment: Beds hollie glucose is a screening procedure. The bedside glucosestrip is calibrated to deliver plasma glucose levels. Glucosemeter values <45 mg/dl and >450 mg/dl must be confirmed with aplasma or whole blood glucose performed in the lab. Wholeblood glucose results are 10-15% lower than plasma glucoseresults. Performed By: #### G LUM ####[address] [phone] Glucose mass conc 248 mg/dL High 60-110 [facility] Comment on above: Result Comment: Beds hollie glucose is a screening procedure. The bedside glucosestrip is calibrated to deliver plasma glucose levels. Glucosemeter values <45 mg/dl and >450 mg/dl must be confirmed with aplasma or whole blood glucose performed in the lab. Wholeblood glucose results are 10-15% lower than plasma glucoseresults. Performed By: #### G LUM ####[address] [phone] Glucose mass conc 291 mg/dL High 60-110 [facility] Comment on above: Result Comment: Beds hollie glucose is a screening procedure. The bedside glucosestrip is calibrated to deliver plasma glucose levels. Glucosemeter values <45 mg/dl and >450 mg/dl must be confirmed with aplasma or whole blood glucose performed in the lab. Wholeblood glucose results are 10-15% lower than plasma glucoseresults. Performed By: #### G LUM ####[address] [phone] Glucose mass conc 195 mg/dL High 60-110 [facility] Comment on above: Result Comment: Beds hollie glucose is a screening procedure. The bedside glucosestrip is calibrated to deliver plasma glucose levels. Glucosemeter values <45 mg/dl and >450 mg/dl must be confirmed with aplasma or whole blood glucose performed in the lab. Wholeblood glucose results are 10-15% lower than plasma glucoseresults. Performed By: #### C MP ####[facility] of [address] [phone] Glucose mass conc 254 mg/dL High 60-110 [facility] Comment on above: Result Comment: Beds hollie glucose is a screening procedure. The bedside glucosestrip is calibrated to deliver plasma glucose levels. Glucosemeter values <45 mg/dl and >450 mg/dl must be confirmed with aplasma or whole blood glucose performed in the lab. Wholeblood glucose results are 10-15% lower than plasma glucoseresults. Performed By: #### C MP ####[facility] of [address] [phone] Glucose mass conc 225 mg/dL High 60-110 [facility] Comment on above: Result Comment: Beds hollie glucose is a screening procedure. The bedside glucosestrip is calibrated to deliver plasma glucose levels. Glucosemeter values <45 mg/dl and >450 mg/dl must be confirmed with aplasma or whole blood glucose performed in the lab. Wholeblood glucose results are 10-15% lower than plasma glucoseresults. Performed By: #### C MP ####[facility] of [address] [phone] Surgical Pathology Teston Surgical Pathology Test SEE [...] has a rubberyconsistency with no obvious abnormalities. [employer]inist 2[employer] sections aresubmitted.MICROSCOPIC EXAMINATION: Microscopic slide reviewed. PROSPER ABDALLA MD 12/01/2017 Performed By: #### S UR ####[address] [phone] Complete Blood Counton 11-28 Differential Complete Manual Normal [facility] Comment on above: Performed By: #### C MP ####[address] [phone] Erythrocyte distribution width Auto Ratio (RBC) 12.9 % Normal 0.0-14.4 [facility] Comment on above: Performed By: #### C MP ####[address] [phone] Erythrocytes (RBC) 2.91 10E12/L Low 4.50-5.50 [facility] Comment on above: Performed By: #### C MP ####[address] [phone] Hematocrit (HCT) 25.2 % Low 41.0-50.0 [facility] Comment on above: Performed By: #### C MP ####[address] [phone] Hemoglobin mass conc (Bld) 8.0 g/dL Low 13.5-16.5 [facility] Comment on above: Performed By: #### C MP ####[address] [phone] Immature granulocytes/100 WBC (Bld) 0.70 % Normal [facility] Comment on above: Result Comment: Lydia ture Granulocyte Percent includes promyelocytes, myelocytes,and metamyelocytes. IG% > 1.0 indicates a left shift ispresent. With automated differentials, bands are includedin the neutrophil count and not in the Immature GranulocytePercent. Performed By: #### C MP ####[address] [phone] MCH 27.5 pg Normal 26.0-34.0 [facility] Comment on above: Performed By: #### C MP ####[address] [phone] MCHC mass conc (RBC) 31.7 % Normal 31.0-37.0 [facility] Comment on above: Performed By: #### C MP ####[address] [phone] MCV 86.6 fL Normal 80.0-100.0 [facility] Comment on above: Performed By: #### C MP ####[address] [phone] Nucleated RBC % 0.0 % Normal -1.0-0.0 [facility] Comment on above: Performed By: #### C MP ####[address] [phone] Platelet mean volume (PMV) 10.0 fL Normal [facility] Comment on above: Result Comment: MPV is plateletrange and agedependent Performed By: #### C MP ####[address] [phone] Platelets 416 10*3/uL Normal 150-450 [facility] Comment on above: Performed By: #### C MP ####[address] [phone] WBC (Leukocytes) 11.7 10*3/uL High 4.5-11.0 [facility] Comment on above: Performed By: #### C MP ####[address] [phone] Glucose by Meteron 8 Glucose mass conc 296 mg/dL High 60-110 [facility] Comment on above: Result Comment: Beds hollie glucose is a screening procedure. The bedside glucosestrip is calibrated to deliver plasma glucose levels. Glucosemeter values <45 mg/dl and >450 mg/dl must be confirmed with aplasma or whole blood glucose performed in the lab. Wholeblood glucose results are 10-15% lower than plasma glucoseresults. Performed By: #### C MP ####[address] [phone] Glucose mass conc 217 mg/dL High 60-110 [facility] Comment on above: Result Comment: Beds hollie glucose is a screening procedure. The bedside glucosestrip is calibrated to deliver plasma glucose levels. Glucosemeter values <45 mg/dl and >450 mg/dl must be confirmed with aplasma or whole blood glucose performed in the lab. Wholeblood glucose results are 10-15% lower than plasma glucoseresults. Performed By: #### C MP ####[address] [phone] Glucose mass conc 264 mg/dL High 60-110 [facility] Comment on above: Result Comment: Beds hollie glucose is a screening procedure. The bedside glucosestrip is calibrated to deliver plasma glucose levels. Glucosemeter values <45 mg/dl and >450 mg/dl must be confirmed with aplasma or whole blood glucose performed in the lab. Wholeblood glucose results are 10-15% lower than plasma glucoseresults. Performed By: #### C MP ####[address] [phone] Glucose mass conc 235 mg/dL High 60-110 [facility] Comment on above: Result Comment: Beds hollie glucose is a screening procedure. The bedside glucosestrip is calibrated to deliver plasma glucose levels. Glucosemeter values <45 mg/dl and >450 mg/dl must be confirmed with aplasma or whole blood glucose performed in the lab. Wholeblood glucose results are 10-15% lower than plasma glucoseresults. Performed By: #### C MP ####[address] [phone] Glucose mass conc 163 mg/dL High 60-110 [facility] Comment on above: Result Comment: Beds hollie glucose is a screening procedure. The bedside glucosestrip is calibrated to deliver plasma glucose levels. Glucosemeter values <45 mg/dl and >450 mg/dl must be confirmed with aplasma or whole blood glucose performed in the lab. Wholeblood glucose results are 10-15% lower than plasma glucoseresults. Performed By: #### C MP ####[address] [phone] Glucose mass conc 312 mg/dL High 60-110 [facility] Comment on above: Result Comment: Beds hollie glucose is a screening procedure. The bedside glucosestrip is calibrated to deliver plasma glucose levels. Glucosemeter values <45 mg/dl and >450 mg/dl must be confirmed with aplasma or whole blood glucose performed in the lab. Wholeblood glucose results are 10-15% lower than plasma glucoseresults. Performed By: #### M DIFF ####[address] [phone] Manual Differentialon 2017 Eosinophils/100 leukocytes 6 % High 0-3 [facility] Comment on above: Performed By: #### C MP ####[address] [phone] Hypochromia Slight Normal [facility] Comment on above: Performed By: #### C MP ####[address] [phone] Lymphocytes/100 leukocytes 30 % Normal 24-44 [facility] Comment on above: Performed By: #### C MP ####[address] [phone] Metamyelocytes 0 % Normal 0-0 [facility] Comment on above: Performed By: #### C MP ####[address] [phone] Metamyelocytes/100 leukocytes 0 % Normal 0-0 [facility] Comment on above: Performed By: #### C MP ####[address] [phone] Monocytes/100 leukocytes 16 % High 3-6 [facility] Comment on above: Performed By: #### C MP ####[address] [phone] Neutrophils 5.6 Normal [facility] Comment on above: Performed By: #### C MP ####[address] [phone] Neutrophils band/100 leukocytes 0 % Low 5-11 [facility] Comment on above: Performed By: #### C MP ####[address] [phone] Polychromasia Slight Normal [facility] Comment on above: Performed By: #### C MP ####[address] [phone] Promyelocytes 0 % Normal 0-0 [facility] Comment on above: Performed By: #### C MP ####[address] [phone] Segmented Neutrophils/100 leukocytes 48 % Normal 35-66 [facility] Comment on above: Performed By: #### C MP ####[address] [phone] WBC (Leukocytes) Occasional Normal [facility] Comment on above: Result Comment: Occa sional Toxic granulation Performed By: #### C MP ####[address] [phone] AS1 Red Cell Uniton 11-28-19 18 AS1 Red Cell Unit [id number] Normal [facility] Comment on above: Performed By: #### U FMIC ####[address] [phone] AS1 Red Cell Unit =[id number] Normal [facility] Comment on above: Performed By: #### U FMIC ####[facility] of [address] [phone] AS1 Red Cell Unit = Normal [facility] Comment on above: Performed By: #### U FMIC ####[address] [phone] AS1 Red Cell Unit =[id number] Normal [facility] Comment on above: Performed By: #### U FMIC ####[address] [phone] AS1 Red Cell Unit [id number] released Normal [facility] Comment on above: Performed By: #### U FMIC ####[address] [phone] AS1 Red Cell Unit released Normal [facility] Comment on above: Performed By: #### U FMIC ####[address] [phone] Glucose by Meteron 8 Glucose mass conc 227 mg/dL High 60-110 [facility] Comment on above: Result Comment: Beds hollie glucose is a screening procedure. The bedside glucosestrip is calibrated to deliver plasma glucose levels. Glucosemeter values <45 mg/dl and >450 mg/dl must be confirmed with aplasma or whole blood glucose performed in the lab. Wholeblood glucose results are 10-15% lower than plasma glucoseresults. Performed By: #### M DIFF ####[address] [phone] Glucose mass conc 232 mg/dL High 60-110 [facility] Comment on above: Result Comment: Beds hollie glucose is a screening procedure. The bedside glucosestrip is calibrated to deliver plasma glucose levels. Glucosemeter values <45 mg/dl and >450 mg/dl must be confirmed with aplasma or whole blood glucose performed in the lab. Wholeblood glucose results are 10-15% lower than plasma glucoseresults. Performed By: #### M DIFF ####[address] [phone] Glucose mass conc 218 mg/dL High 60-110 [facility] Comment on above: Result Comment: Beds hollie glucose is a screening procedure. The bedside glucosestrip is calibrated to deliver plasma glucose levels. Glucosemeter values <45 mg/dl and >450 mg/dl must be confirmed with aplasma or whole blood glucose performed in the lab. Wholeblood glucose results are 10-15% lower than plasma glucoseresults. Performed By: #### M DIFF ####[address] [phone] Glucose mass conc 217 mg/dL High 60-110 [facility] Comment on above: Result Comment: Beds hollie glucose is a screening procedure. The bedside glucosestrip is calibrated to deliver plasma glucose levels. Glucosemeter values <45 mg/dl and >450 mg/dl must be confirmed with aplasma or whole blood glucose performed in the lab. Wholeblood glucose results are 10-15% lower than plasma glucoseresults. Performed By: #### M DIFF ####[address] [phone] Glucose by Meteron 8 Glucose mass conc 209 mg/dL High 60-110 [facility] Comment on above: Result Comment: Beds hollie glucose is a screening procedure. The bedside glucosestrip is calibrated to deliver plasma glucose levels. Glucosemeter values <45 mg/dl and >450 mg/dl must be confirmed with aplasma or whole blood glucose performed in the lab. Wholeblood glucose results are 10-15% lower than plasma glucoseresults. Performed By: #### M DIFF ####[address] [phone] Glucose mass conc 243 mg/dL High 60-110 [facility] Comment on above: Result Comment: Beds hollie glucose is a screening procedure. The bedside glucosestrip is calibrated to deliver plasma glucose levels. Glucosemeter values <45 mg/dl and >450 mg/dl must be confirmed with aplasma or whole blood glucose performed in the lab. Wholeblood glucose results are 10-15% lower than plasma glucoseresults. Performed By: #### M DIFF ####[address] [phone] Glucose mass conc 307 mg/dL High 60-110 [facility] Comment on above: Result Comment: Beds hollie glucose is a screening procedure. The bedside glucosestrip is calibrated to deliver plasma glucose levels. Glucosemeter values <45 mg/dl and >450 mg/dl must be confirmed with aplasma or whole blood glucose performed in the lab. Wholeblood glucose results are 10-15% lower than plasma glucoseresults. Performed By: #### M DIFF ####[address] [phone] Glucose mass conc 325 mg/dL High 60-110 [facility] Comment on above: Result Comment: Beds hollie glucose is a screening procedure. The bedside glucosestrip is calibrated to deliver plasma glucose levels. Glucosemeter values <45 mg/dl and >450 mg/dl must be confirmed with aplasma or whole blood glucose performed in the lab. Wholeblood glucose results are 10-15% lower than plasma glucoseresults. Performed By: #### M DIFF ####[address] [phone] Glucose mass conc 163 mg/dL High 60-110 [facility] Comment on above: Result Comment: Beds hollie glucose is a screening procedure. The bedside glucosestrip is calibrated to deliver plasma glucose levels. Glucosemeter values <45 mg/dl and >450 mg/dl must be confirmed with aplasma or whole blood glucose performed in the lab. Wholeblood glucose results are 10-15% lower than plasma glucoseresults. Performed By: #### M DIFF ####[address] [phone] Glucose mass conc 225 mg/dL High 60-110 [facility] Comment on above: Result Comment: [facility] glucose is a screening procedure. The bedside glucosestrip is calibrated to deliver plasma glucose levels. Glucosemeter values <45 mg/dl and >450 mg/dl must be confirmed with aplasma or whole blood glucose performed in the lab. Wholeblood glucose results are 10-15% lower than plasma glucoseresults. Performed By: #### U FMIC ####[address] [phone] Glucose mass conc 177 mg/dL High 60-110 [facility] Comment on above: Result Comment: Beds hollie glucose is a screening procedure. The bedside glucosestrip is calibrated to deliver plasma glucose levels. Glucosemeter values <45 mg/dl and >450 mg/dl must be confirmed with aplasma or whole blood glucose performed in the lab. Wholeblood glucose results are 10-15% lower than plasma glucoseresults. Performed By: #### U FMIC ####[address] [phone] Surgical Pathology Teston Surgical Pathology Test SEE [...] reveals a rubbery consistency with no obvious lesions.Machinist 2Nd Shift sections are submitted in 3 cassettes.MICROSCOPIC EXAMINATION: Sections show fragments of skin andsubcutaneous dermis showing variable coagulative necrosis. There isunderlying fibrosis. There are islands of squamous epithelium. Thereare foci of acute hemorrhage and mild chronic inflammation. There arevariable underlying skin adnexal structures present. WALT ORDONEZ, DO 11/29/2017 Performed By: #### G LUM ####[address], [place] [phone] Glucose by Meteron Glucose mass conc 242 mg/dL High 60-110 [facility] Comment on above: Result Comment: Beds hollie glucose is a screening procedure. The bedside glucosestrip is calibrated to deliver plasma glucose levels. Glucosemeter values <45 mg/dl and >450 mg/dl must be confirmed with aplasma or whole blood glucose performed in the lab. Wholeblood glucose results are 10-15% lower than plasma glucoseresults. Performed By: #### U FMIC ####[address] [phone] Glucose mass conc 187 mg/dL High 60-110 [facility] Comment on above: Result Comment: Beds hollie glucose is a screening procedure. The bedside glucosestrip is calibrated to deliver plasma glucose levels. Glucosemeter values <45 mg/dl and >450 mg/dl must be confirmed with aplasma or whole blood glucose performed in the lab. Wholeblood glucose results are 10-15% lower than plasma glucoseresults. Performed By: #### U FMIC ####[address] [phone] Glucose mass conc 258 mg/dL High 60-110 [facility] Comment on above: Result Comment: Beds hollie glucose is a screening procedure. The bedside glucosestrip is calibrated to deliver plasma glucose levels. Glucosemeter values <45 mg/dl and >450 mg/dl must be confirmed with aplasma or whole blood glucose performed in the lab. Wholeblood glucose results are 10-15% lower than plasma glucoseresults. Performed By: #### U FMIC ####[address] [phone] Glucose mass conc 231 mg/dL High 60-110 [facility] Comment on above: Result Comment: Beds hollie glucose is a screening procedure. The bedside glucosestrip is calibrated to deliver plasma glucose levels. Glucosemeter values <45 mg/dl and >450 mg/dl must be confirmed with aplasma or whole blood glucose performed in the lab. Wholeblood glucose results are 10-15% lower than plasma glucoseresults. Performed By: #### U FMIC ####[address] [phone] Type AND Antibody Screenon 0 11-25-2017 ABO Type A Normal [facility] Comment on above: Performed By: #### U FMIC ####[address] [phone] Globulin Negative Normal [facility] Comment on above: Performed By: #### U FMIC ####[address] [phone] RH Type Positive Normal [facility] Comment on above: Performed By: #### U FMIC ####[address] [phone] Screening Cells Negative Normal [facility] Comment on above: Performed By: #### U FMIC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 leukocyte esterase presence Negative Normal Negative [facility] Comment on above: Performed By: #### U ACOM ####[facility] of [address] [phone] Urine, nitrite presence Negative Normal Negative [facility] Comment on above: Performed By: #### U ACOM ####[facility] of [address] [phone] Urine, pH 5.0 Normal 5.0-8.0 [facility] Comment on above: Performed By: #### U ACOM ####[address] [phone] Urine, specific gravity 1.024 Normal 1.00 5-1.03 0 [facility] Comment on above: Performed By: #### U ACOM ####[address] [phone] Urine, urobilinogen 0.2 mg/dl Normal Negative [facility] Comment on above: Performed By: #### U ACOM ####[address] [phone] Volume 12 ml Normal 12 [facility] Comment on above: Performed By: #### U ACOM ####[address] [phone] Glucose by Meteron 8 Glucose mass conc 231 mg/dL High 60-110 [facility] Comment on above: Result Comment: Beds hollie glucose is a screening procedure. The bedside glucosestrip is calibrated to deliver plasma glucose levels. Glucosemeter values <45 mg/dl and >450 mg/dl must be confirmed with aplasma or whole blood glucose performed in the lab. Wholeblood glucose results are 10-15% lower than plasma glucoseresults. Performed By: #### [facility] ####[address] [id number] Lab Report: Bedside Glucoseo n 01-20-2017 Glucose 205 mg/dL High 70-110 [facility] Work Phone: Glucose mass conc 205 mg/dL High 70-110 [facility] Work Phone: Glucose 467 mg/dL Critically high 70-110 [facility] [employer], [facility] Work Phone: Glucose mass conc 467 mg/dL Critically high 70-110 [facility] Work Phone: Glucose mass conc 127 mg/dL High 70-110 [facility] Work Phone: Microbiology: Culture, Wound on 01-20-2017 CU[facility] . [facility] Work Phone: wound culture . Invalid Interpretation Code [facility] Work Phone: Lab Report: Bedside Glucoseo n 01-19-2017 Glucose mass conc 208 mg/dL High 70-[facility] [employer] Work Phone: Glucose mass conc 222 mg/dL High 70-110 [facility] [employer] Work Phone: Microbiology: Culture, Blood (WB)on 01-19-2017 Bacteria identified Cx Nom (Bld) BCNo growth in 5 days. Invalid Interpretation Code [employer] Work Phone: Lab Report: Bedside Glucoseo n 01-18-2017 Glucose 265 mg/dL High 70-110 [employer] Work Phone: Glucose 81 mg/dL Invalid Interpretation Code 70-110 [employer] Work Phone: Microbiology: Culture, Wound on 01-17-2017 CUW . [employer] Work Phone: wound culture . Invalid Interpretation Code [employer] Work Phone: Lab Report: Bedside Glucoseo n [...] (Leukocytes) 11.0 10*3/uL Invalid Interpretation Code 4.4-11.0 [employer] [facility] Work Phone: Microbiology: (P) Culture, B lood (WB)on 01-16-2017 Bacteria culture BCNo growth in 48 hours. Invalid Interpretation Code [facility] Work Phone: Lab Report: Basic Metabolic Profile [...] 97 mmol/L Low 98-107 [facility] Work Phone: CO2 30.0 mmol/L Invalid Interpretation Code 21.0-32.0 [facility] Work Phone: CO2 ppres (BldV) 30.0 mmol/L 21.0-32.0 [facility] Work Phone: Creatinine 0.35 mg/dL Low 0.70-1.30 [facility] Work Phone: Creatinine 240.08 mL/min Invalid Interpretation Code [facility] Work Phone: eGFR (non-black) 343 mL/min/{1.73_m2} Invalid Interpretation Code >60 [facility] Work Phone: eGFR (non-black) 415 mL/min/{1.73_m2} Invalid Interpretation Code >60 [facility] Work Phone: EST GFR - AA 415 mL/min >60 [facility] Work Phone: Glucose 85 mg/dL Invalid Interpretation Code 70-110 [facility] Work Phone: Glucose mass conc 85 mg/dL 70-110 [facility] Work Phone: Potassium 3.4 mmol/L Low 3.5-5.1 [facility] Work Phone: Sodium 135 mmol/L Low 136-145 [facility] Work Phone: Urea nitrogen 3 mg/dL Low 7-18 [facility] Work Phone: Lab Report: Bedside Glucoseo n 01-15-2017 Glucose 86 mg/dL Invalid Interpretation Code 70-110 [facility] Work Phone: Lab Report: CBC W/Diff, Auto matedon 01-15-2017 neutrophil count, blood 8.4 X10 3/UL High 2.0-7.7 [facility] Work Phone: Neutrophils #/vol (Bld) 8.4 X10 3/UL High 2.0-7.7 [facility] Work Phone: Basophils/100 leukocytes 0.2 % Invalid Interpretation Code 0-1 [facility] Work Phone: Basophils/100 WBC (Bld) 0.2 % 0-1 B [facility] Work Phone: Eosinophils/100 leukocytes 2.0 % Invalid Interpretation Code 0-5 [facility] Work Phone: Eosinophils/100 WBC (Bld) 2.0 % 0-5 [facility] Work Phone: Erythrocyte distribution width Ratio (RBC) 40.8 fL 35.1-43.9 [facility] Work Phone: Erythrocyte distribution width Ratio (RBC) 13.1 % 11.6-14.6 [facility] Work Phone: Erythrocytes (RBC) 3.98 10*6/uL Low 4.6-6.2 [facility] Work Phone: Hematocrit (HCT) 33.8 % Low 40-54 [facility] Work Phone: Hematocrit Volume Fraction (Bld) 33.8 % Low 40-54 [facility] Work Phone: Hemoglobin (HGB) 10.9 g/dL Low 13.0-16.5 [facility] Work Phone: Immature granulocytes #/vol (Bld) 0.200 % 0.0-0.9 [facility] Work Phone: immature granulocytes, percentage of total cells, blood 0.200 % Invalid Interpretation Code 0.0-0.9 [facility] Work Phone: Lymphocytes 3.10 X10 3/UL Invalid Interpretation Code 0.83-4.51 [facility] Work Phone: Lymphocytes #/vol (Bld) 3.10 X10 3/UL 0.83-4.51 [facility] Work Phone: Lymphocytes/100 leukocytes 23.8 % Invalid Interpretation Code 19-41 [facility] Work Phone: Lymphocytes/100 WBC (Bld) 23.8 % 19-41 [facility] Work Phone: MCH 27.4 pg Invalid Interpretation Code 27.0-32.0 [facility] Work Phone: MCH Entitic mass (RBC) 27.4 pg 27.0-32.0 [facility] Work Phone: MCHC 32.2 G/GL Invalid Interpretation Code 32-36 [facility] Work Phone: MCHC mass conc (RBC) 32.2 G/GL 32-36 [facility] Work Phone: MCV 84.9 fL Invalid Interpretation Code 80-94 [facility] Work Phone: MCV Entitic volume (RBC) 84.9 fL 80-94 [facility] Work Phone: Monocytes/100 leukocytes 9.3 % Invalid Interpretation Code 0-10 [facility] Work Phone: Monocytes/100 WBC (Bld) 9.3 % 0-10 B [facility] Work Phone: Neutrophils/100 leukocytes 64.5 % Invalid Interpretation Code 47-70 [facility] Work Phone: Neutrophils/100 WBC (Bld) 64.5 % 47-70 [facility] Work Phone: Platelet mean volume Entitic volume (Bld) 10.2 fL 6.2-12.0 [facility] Work Phone: Platelets 322 10*3/mm3 Invalid Interpretation Code 150-450 [facility] Work Phone: Platelets #/vol (Bld) 322 10*3/mm3 150-450 B [facility] Work Phone: PMV by Perry 10.2 fL Invalid Interpretation Code 6.2-12.0 [facility] Work Phone: RBC #/vol (Bld) 3.98 10*6/uL Low 4.6-6.2 [facility] Work Phone: RDW-CA 13.1 % Invalid Interpretation Code 11.6-14.6 [facility] Work Phone: red blood cell distribution width, size density 40.8 fL Invalid Interpretation Code 35.1-43.9 [facility] Work Phone: complete blood count (CBC), comments SCANNED Invalid Interpretation Code [facility] Work Phone: SMEAR COMMENT SCANNED [facility] Work Phone: Lab Report: Pathology Skin B iopsyon 01-15-2017 GE use only - for [employer] import when terms are not otherwise specified SEE PATHOLOGY REPORT Invalid Interpretation Code [facility] Work Phone: PTH,Skin Biopsy SEE PATHOLOGY REPORT [facility] Work Phone: Microbiology: (P) Culture, W oundon 01-15-2017 [facility] . [facility] Work Phone: wound culture . Invalid Interpretation Code [facility] Work Phone: Replaced Document: (P) CBC W /Diff, Automatedon 01-15-2017 Basophils/100 leukocytes 0.2 % Invalid Interpretation Code 0-1 [facility] Work Phone: Basophils/100 WBC (Bld) 0.2 % 0-1 [facility] Work Phone: Eosinophils/100 leukocytes 3.5 % Invalid Interpretation Code 0-5 [facility] Work Phone: Eosinophils/100 WBC (Bld) 3.5 % 0-5 [facility] Work Phone: Erythrocyte distribution width Ratio (RBC) 13.2 % 11.6-14.6 [facility] Work Phone: Erythrocyte distribution width Ratio (RBC) 40.3 fL 35.1-43.9 [facility] Work Phone: Erythrocytes (RBC) 4.02 10*6/uL Low 4.6-6.2 [facility] Work Phone: Hematocrit (HCT) 33.8 % Low 40-54 [facility] Work Phone: Hematocrit Volume Fraction (Bld) 33.8 % Low 40-54 [facility] Work Phone: Hemoglobin (HGB) 11.2 g/dL Low 13.0-16.5 [facility] Work Phone: Immature granulocytes #/vol (Bld) 0.300 % 0.0-0.9 [facility] Work Phone: immature granulocytes, percentage of total cells, blood 0.300 % Invalid Interpretation Code 0.0-0.9 [facility] Work Phone: Lymphocytes 3.26 X10 3/UL Invalid Interpretation Code 0.83-4.51 [facility] Work Phone: Lymphocytes #/vol (Bld) 3.26 X10 3/UL 0.83-4.51 [facility] Work Phone: Lymphocytes/100 leukocytes 23.0 % Invalid Interpretation Code 19-41 [facility] Work Phone: Lymphocytes/100 WBC (Bld) 23.0 % 19-41 [facility] Work Phone: MCH 27.9 pg Invalid Interpretation Code 27.0-32.0 [facility] Work Phone: MCH Entitic mass (RBC) 27.9 pg 27.0-32.0 [facility] Work Phone: MCHC 33.1 G/GL Invalid Interpretation Code 32-36 [facility] Work Phone: MCHC mass conc (RBC) 33.1 G/GL 32-[address] [facility] Work Phone: MCV 84.1 fL Invalid Interpretation Code 80-94 [facility] Work Phone: MCV Entitic volume (RBC) 84.1 fL 80-94 [facility] Work Phone: Monocytes/100 leukocytes 10.1 % High 0-10 [facility] Work Phone: Monocytes/100 WBC (Bld) 10.1 % High 0-10 [facility] Work Phone: neutrophil count, blood 8.9 X10 3/UL High 2.0-7.7 [facility] Work Phone: Neutrophils #/vol (Bld) 8.9 X10 3/UL High 2.0-7.7 [facility] Work Phone: Neutrophils/100 leukocytes 62.9 % Invalid Interpretation Code 47-70 [facility] Work Phone: Neutrophils/100 WBC (Bld) 62.9 % 47-70 [facility] Work Phone: Platelet mean volume Entitic volume (Bld) 10.2 fL 6.2-12.0 [facility] Work Phone: Platelets 307 10*3/mm3 Invalid Interpretation Code 150-450 [facility] Work Phone: Platelets #/vol (Bld) 307 10*3/mm3 150-450 [facility] Work Phone: PMV by Perry 10.2 fL Invalid Interpretation Code 6.2-12.0 [facility] Work Phone: RBC #/vol (Bld) 4.02 10*6/uL Low 4.6-6.2 [facility] Work Phone: RDW-CA 13.2 % [...] gap 9 mmol/L Invalid Interpretation Code 5-15 [facility] [employer] Work Phone: BUN/Creatinine Ratio 15.7 RATIO Invalid Interpretation Code 10-20 [facility] [email or web address] [facility] Work Phone: Calcium 7.1 mg/dL Low 8.5-10.1 [employer] [email or web address] [facility] Work Phone: Chloride 105 mmol/L Invalid Interpretation Code 98-107 [email or web address] [facility] Work Phone: CO2 20.0 mmol/L Low 21.0-32.0 [email or web address] [facility] Work Phone: Creatinine 186.73 mL/min Invalid Interpretation Code [facility] [employer] [facility] Work Phone: Creatinine 0.45 mg/dL Low 0.70-1.30 [employer] [facility] Work Phone: eGFR (non-black) 257 mL/min/{1.73_m2} Invalid Interpretation Code >60 [email or web address] [facility] Work Phone: eGFR (non-black) 312 mL/min/{1.73_m2} Invalid Interpretation Code >60 [employer] [facility] Work Phone: Glucose 334 mg/dL High 70-110 [facility] Work Phone: Potassium 4.1 mmol/L Invalid Interpretation Code 3.5-5.1 [email or web address] [facility] Work Phone: Sodium 134 mmol/L Low 136-145 [facility] [email or web address] [facility] Work Phone: Urea nitrogen 7 mg/dL Invalid Interpretation Code 7-18 [employer] Work Phone: Anion gap 10 mmol/L Invalid Interpretation Code 5-15 [facility] Work Phone: BUN/Creatinine Ratio 11.6 RATIO Invalid Interpretation Code 10-20 [facility] Work Phone: Calcium 6.6 mg/dL Low 8.5-10.1 [facility] Work Phone: Chloride 106 mmol/L Invalid Interpretation Code 98-107 [facility] Work Phone: CO2 19.0 mmol/L Low 21.0-32.0 [facility] Work Phone: Creatinine 161.59 mL/min Invalid Interpretation Code [facility] Work Phone: Creatinine 0.52 mg/dL Low 0.70-1.30 [facility] Work Phone: eGFR (non-black) 218 mL/min/{1.73_m2} Invalid Interpretation Code >60 [facility] Work Phone: eGFR (non-black) 263 mL/min/{1.73_m2} Invalid Interpretation Code >60 [facility] Work Phone: Glucose 334 mg/dL High 70-110 [facility] Work Phone: Potassium 4.3 mmol/L Invalid Interpretation Code 3.5-5.1 [facility] Work Phone: Sodium 135 mmol/L Low 136-145 [facility] Work Phone: Urea nitrogen 6 mg/dL Low 7-18 [facility] Work Phone: Lab Report: Bedside Glucoseo n 01-14-2017 Glucose 325 mg/dL High 70-110 [facility] Work Phone: Glucose 429 mg/dL High 70-110 [facility] Work Phone: Lab Report: CBC W/Diff, Auto matedon 01-14-2017 Basophils/100 leukocytes 0.3 % Invalid Interpretation Code 0-1 [facility] Work Phone: Eosinophils/100 leukocytes 0.9 % Invalid Interpretation Code 0-5 [facility] Work Phone: Erythrocytes (RBC) 3.44 10*6/uL Low 4.6-6.2 [facility] Work Phone: Hematocrit (HCT) 29.2 % Low 40-54 [facility] Work Phone: Hemoglobin (HGB) 9.4 g/dL Low 13.0-16.5 [facility] Work Phone: immature granulocytes, percentage of total cells, blood 0.200 % Invalid Interpretation Code 0.0-0.9 [facility] Work Phone: Lymphocytes 1.72 X10 3/UL Invalid Interpretation Code 0.83-4.51 [facility] Work Phone: Lymphocytes/100 leukocytes 29.7 % Invalid Interpretation Code 19-41 [facility] Work Phone: MCH 27.3 pg Invalid Interpretation Code 27.0-32.0 [facility] Work Phone: MCHC 32.2 G/GL Invalid Interpretation Code 32-36 [facility] Work Phone: MCV 84.9 fL Invalid Interpretation Code 80-94 [facility] Work Phone: Monocytes/100 leukocytes 11.7 % High 0-10 [facility] Work Phone: neutrophil count, blood 3.3 X10 3/UL Invalid Interpretation Code 2.0-7.7 [facility] Work Phone: Neutrophils/100 leukocytes 57.2 % Invalid Interpretation Code 47-70 [facility] Work Phone: Platelets 206 10*3/mm3 Invalid Interpretation Code 150-450 [facility] Work Phone: PMV by Perry 11.0 fL Invalid Interpretation Code 6.2-12.0 [facility] Work Phone: RDW-CA 13.0 % Invalid Interpretation Code 11.6-14.6 [facility] Work Phone: red blood cell distribution width, size density 39.2 fL Invalid Interpretation Code 35.1-43.9 [facility] Work Phone: WBC (Leukocytes) 5.8 10*3/uL Invalid Interpretation Code 4.4-11.0 [facility] Work Phone: Lab Report: Hemoglobin A1con 01-14-2017 HbA1c 11.6 % High 4.2-6.3 [facility] Work Phone: Lab Report: Lactic Acidon Lactate 1.8 mmol/L Invalid Interpretation Code 0.4-2.0 [facility] Work Phone: Lactate 6.0 mmol/L Critically high 0.4-2.0 [facility] [facility] Work Phone: Lactate 4.8 mmol/L Critically high 0.4-2.0 [facility] Work Phone: Lab Report: Alex Morrish Aureus DNA by PCRon 01-14-2017 INR in blood by coagulation Negative Invalid Interpretation Code Negative [facility] Work Phone: Lab Report: MRSA Wound DNA b y PCRon 01-14-2017 GE use only - for [employer] import when terms are not otherwise specified Negative Invalid Interpretation Code Negative [facility] Work Phone: SA RESULT Negative Negative [facility] Work Phone: Office Visiton 12-10-2016 Documentation of current medications (procedure) Done Invalid Interpretation Code [facility] Work Phone: Fall risk assessment No Invalid Interpretation Code [employer] Work Phone: Protein mass conc Done [facility] Work Phone: Chart Maintenance: Ralph pinon 11-12-2016 Urine, microalbumin mg/dL Invalid Interpretation Code [employer] Work Phone: Lab Report: Hemoglobin A1con 11-12-2016 HbA1c 12.0 % High 4.2-6.3 [employer] Work Phone: Lab Report: Microalb:Creat R atio,Random URon 11-12-2016 ACR (microalbumin/creatinin e) ratio Test not performed mg/g CRE Invalid Interpretation Code <30 mg/g CRE [employer] Work Phone: Albumin/Creatinine DL <= 20 mg/L Ratio (U) Test not performed mg/g CRE <30 mg/g CRE [facility] Work Phone: Urine, creatinine 38.10 mg/dL Invalid Interpretation Code NO RANGE EST. [facility] Work Phone: Urine, microalbumin < 5.0 mg/L Invalid Interpretation Code NO RANGE EST. [facility] Work Phone: Office [facility] Adolescent depression screening assessment Adolescent depression screening assessment Invalid Interpretation Code [facility] Work Phone: Adult depression screening assessment Adolescent depression screening assessment [facility] Work Phone: Documentation of current medications (procedure) Done Invalid Interpretation Code [facility] Work Phone: Fall risk assessment No Invalid Interpretation Code [facility] Work Phone: Protein mass conc yes [facility] Work Phone: Smoking cessation education (procedure) yes Invalid Interpretation Code [facility] Work Phone: Tobacco smoking status NHIS Current Invalid Interpretation Code [facility] Work Phone: Tobacco smoking status NHIS Current every day smoker [facility] Work Phone: Tobacco use [facility] Current every day smoker Invalid Interpretation Code [facility] Work Phone: Influenza virus A and B and SARS-CoV-2 (COVID-19) Ag panel - Upper respiratory specim SARS-CoV-2 & FLU Antigen (Rapid) SARS-CoV-2 (COVID 19) [facility] Work Phone: Laboratory - Microbiology an d Antimicrobial susceptibility Respiratory pathogens DNA and RNA 12b panel LM+probe (Unsp spec) [facility] Work Phone: Throat Streptococcus pyogene s antigen detection by immunofluorescence S. pyogenes Ag IF Ql (Throat) [facility] Work Phone: Vital Signs Date Time Vital Sign Value Performing Clinician Facility 04-21-2025 14:27-0400 Body temperature 97.8 [degF] No Primary Care Physician [facility] 04-21-2025 14:27-0400 Diastolic blood pressure 70 mm[Hg] No Primary Care Physician [facility] 04-21-2025 14:27-0400 Heart rate 75 /min No Primary Care Physician [facility] 04-21-2025 14:27-0400 Respiratory rate 16 /min No Primary Care Physician [facility] 04-21-2025 14:27-0400 SaO2% (BldA) [Mass fraction] 100 % No Primary Care Physician [facility] 04-21-2025 14:27-0400 Systolic blood pressure 132 mm[Hg] No Primary Care Physician [facility] 04-21-2025 13:29-0400 Body height 187.96 cm No Primary Care Physician [facility] 04-21-2025 13:29-0400 Body mass index (BMI) [Ratio] 19.2 kg/m2 No Primary Care Physician [facility] 04-21-2025 13:29-0400 Body weight 68.03 kg No Primary Care Physician [facility] 02-28-2025 08:50-0400 Body height 187.96 cm No Primary Care Physician [facility] 02-28-2025 08:50-0400 Body weight 58.8 kg No Primary Care Physician [facility] 02-28-2025 04:23-0400 Body mass index (BMI) [Ratio] 16.6 kg/m2 No Primary Care Physician [facility] 02-28-2025 04:00-0400 Body temperature 97.5 [degF] No Primary Care Physician [facility] 02-28-2025 04:00-0400 Diastolic blood pressure 79 mm[Hg] No Primary Care Physician [facility] 02-28-2025 04:00-0400 Heart rate 97 /min No Primary Care Physician [facility] 02-28-2025 04:00-0400 Respiratory rate 18 /min No Primary Care Physician [facility] 02-28-2025 04:00-0400 SaO2% (BldA) [Mass fraction] 97 % No Primary Care Physician [facility] 02-28-2025 04:00-0400 Systolic blood pressure 123 mm[Hg] No Primary Care Physician [facility] 02-27-2025 14:53-0400 Body temperature 97.9 [degF] No Primary Care Physician [facility] 02-27-2025 14:53-0400 Diastolic blood pressure 78 mm[Hg] No Primary Care Physician [facility] 02-27-2025 14:53-0400 Heart rate 99 /min No Primary Care Physician [facility] 02-27-2025 14:53-0400 Respiratory rate 19 /min No Primary Care Physician [facility] 02-27-2025 14:53-0400 SaO2% (BldA) [Mass fraction] 99 % No Primary Care Physician [facility] 02-27-2025 14:53-0400 Systolic blood pressure 101 mm[Hg] No Primary Care Physician [facility] 02-27-2025 12:26-0400 Body height 182.88 cm No Primary Care Physician [facility] 02-27-2025 12:26-0400 Body mass index (BMI) [Ratio] 18.3 kg/m2 No Primary Care Physician [facility] 02-27-2025 12:26-0400 Body weight 61.5 kg No Primary Care Physician [facility] 02-05-2025 14:00-0400 Diastolic blood pressure 76 mm[Hg] Dr. Keisha Handy DO Work Phone: 6(868)575-838454 [place] [address] 02-05-2025 14:00-0400 Heart rate 89 /min Dr. Keisha Handy DO Work Phone: 6(791)231-344034 [place] [address] 02-05-2025 14:00-0400 Respiratory rate 18 /min Dr. Keisha Handy DO Work Phone: 5(281)891-815834 [place] [address] 02-05-2025 14:00-0400 SaO2% (BldA) [Mass fraction] 98 % Dr. Keisha Handy DO Work Phone: 8(090)402-368934 [place] [address] 02-05-2025 10:15-0400 Body height 182.[address] Keisha Handy DO Work Phone: 5(759)064-751334 [place] [address] 02-05-2025 10:15-0400 Body weight 61.[address] Keisha Handy DO Work Phone: 8(833)630-725434 [place] [address] 02-05-2025 05:48-0400 Body mass index (BMI) [Ratio] 18.3 kg/m2 Dr. Keisha Handy DO Work Phone: 9(531)429-387634 [place] [address] 02-05-2025 04:00-0400 Diastolic blood pressure 75 mm[Hg] Dr. Keisha Handy DO Work Phone: 9(282)931-415134 [place] [address] 02-05-2025 04:00-0400 Heart rate 113 /min Dr. Keisha Handy DO Work Phone: 6(082)725-587934 [place] [address] 02-05-2025 04:00-0400 Respiratory rate 20 /min Dr. Keisha Handy DO Work Phone: 9(703)022-569634 [place] [address] 02-05-2025 04:00-0400 SaO2% (BldA) [Mass fraction] 100 % Dr. Keisha Handy DO Work Phone: 0(246)997-723854 [place] [address] 02-05-2025 04:00-0400 Systolic blood pressure 118 mm[Hg] Dr. Keisha Handy DO Work Phone: 4(799)069-183534 [place] [address] 02-05-2025 03:46-0400 Body temperature 97.9 [degF] Dr. Keisha Handy DO Work Phone: 3(246)669-062734 [place] [address] 02-05-2025 02:20-0400 Body height 182.[address] Keisha Handy DO Work Phone: 4(703)298-149034 [place] [address] 02-05-2025 02:20-0400 Body mass index (BMI) [Ratio] 18.3 kg/m2 Dr. Keisha Handy DO Work Phone: 0(033)247-437534 [place] [address] 02-05-2025 02:20-0400 Body weight 61.[address] Keisha Handy DO Work Phone: 7(910)276-736234 [place] [address] 01-26-2025 17:27-0400 Body temperature 97.8 [degF] Dr. Keisha Handy DO Work Phone: 9(535)907-516534 [place] [address] 01-26-2025 17:27-0400 Diastolic blood pressure 95 mm[Hg] Dr. Keisha Handy DO Work Phone: 1(842)603-739034 [place] [address] 01-26-2025 17:27-0400 Heart rate 97 /min Dr. Keisha Handy DO Work Phone: 6(888)679-293054 [place] [address] 01-26-2025 17:27-0400 Respiratory rate 14 /min Dr. Keisha Handy DO Work Phone: 2(138)681-665334 [place] [address] 01-26-2025 17:27-0400 SaO2% (BldA) [Mass fraction] 99 % Dr. Keisha Handy DO Work Phone: 2(991)609-776354 [place] [address] 01-26-2025 17:27-0400 Systolic blood pressure 125 mm[Hg] Dr. Keisha Handy DO Work Phone: 2(283)278-565154 [place] [address] 01-26-2025 11:24-0400 Body height 182.[address] Keisha Handy DO Work Phone: 5(717)361-732654 [place] [address] 01-26-2025 11:24-0400 Body mass index (BMI) [Ratio] 18.6 kg/m2 Dr. Keisha Handy DO Work Phone: 8(192)614-712054 [place] [address] 01-26-2025 11:24-0400 Body weight 62.[address] Keisha Handy DO Work Phone: 1(748)865-574954 [place] [address] 12-14-2024 02:20-0400 Body temperature 98.4 [degF] Dr. Keisha Handy DO Work Phone: 7(312)592-243454 [place] [address] 12-14-2024 02:20-0400 Diastolic blood pressure 68 mm[Hg] Dr. Keisha Handy DO Work Phone: 7(488)820-757354 [place] [address] 12-14-2024 02:20-0400 Heart rate 113 /min Dr. Keisha Handy DO Work Phone: 4(637)561-429954 [place] [address] 12-14-2024 02:20-0400 Respiratory rate 14 /min Dr. Keisha Handy DO Work Phone: 2(795)937-890054 [place] [address] 12-14-2024 02:20-0400 SaO2% (BldA) [Mass fraction] 96 % Dr. Keisha Handy DO Work Phone: 2(001)298-587654 [place] [address] 12-14-2024 02:20-0400 Systolic blood pressure 112 mm[Hg] Dr. Keisha Handy DO Work Phone: 6(745)366-213754 [place] [address] 12-13-2024 21:12-0400 Body height 187.[address] Keisha Handy DO Work Phone: 3(819)064-691854 [place] [address] 12-13-2024 21:12-0400 Body mass index (BMI) [Ratio] 14.6 kg/m2 Dr. Keisha Handy DO Work Phone: 7(384)208-791254 [place] [address] 12-13-2024 21:12-0400 Body weight 51.[address] Keisha Handy DO Work Phone: 4(712)502-292554 [place] [address] 12-12-2024 12:36-0400 Body mass index (BMI) [Ratio] 18.6 kg/m2 Dr. Keisha Handy DO Work Phone: 4(620)147-627554 [place] [address] 12-12-2024 12:36-0400 Body temperature 97 [degF] Dr. Keisha Handy DO Work Phone: 9(841)184-549054 [place] [address] 12-12-2024 12:36-0400 Body weight 62.[address] Keisha Handy DO Work Phone: 9(848)103-564934 [place] [address] 12-12-2024 12:36-0400 Diastolic blood pressure 82 mm[Hg] Dr. Keisha Handy DO Work Phone: 7(962)979-095034 [place] [address] 12-12-2024 12:36-0400 Heart rate 116 /min Dr. Keisha Handy DO Work Phone: 5(010)266-817954 [place] [address] 12-12-2024 12:36-0400 Respiratory rate 18 /min Dr. Keisha Handy DO Work Phone: 9(335)719-869854 [place] [address] 12-12-2024 12:36-0400 SaO2% (BldA) [Mass fraction] 100 % Dr. Keisha Handy DO Work Phone: 0(272)014-421254 [place] [address] 12-12-2024 12:36-0400 Systolic blood pressure 126 mm[Hg] Dr. Keisha Handy DO Work Phone: 6(722)823-586354 [place] [address] 11-11-2024 19:18-0400 Body temperature 97.8 [degF] Dr. Keisha Handy DO Work Phone: 6(733)023-046154 [place] [address] 11-11-2024 19:18-0400 Diastolic blood pressure 86 mm[Hg] Dr. Keisha Handy DO Work Phone: 6(335)639-917954 [place] [address] 11-11-2024 19:18-0400 Heart rate 102 /min Dr. Keisha Handy DO Work Phone: 1(811)129-901054 [place] [address] 11-11-2024 19:18-0400 Respiratory rate 18 /min Dr. Keisha Handy DO Work Phone: 8(809)097-762754 [place] [address] 11-11-2024 19:18-0400 SaO2% (BldA) [Mass fraction] 98 % Dr. Keisha Handy DO Work Phone: 4(570)888-337854 [place] [address] 11-11-2024 19:18-0400 Systolic blood pressure 128 mm[Hg] Dr. Keisha Handy DO Work Phone: 5(595)461-907554 [place] [address] 11-11-2024 17:46-0400 Body height 182.[address] Keisha Handy DO Work Phone: 4(890)068-936754 [place] [address] 11-11-2024 17:46-0400 Body mass index (BMI) [Ratio] 18.7 kg/m2 Dr. Keisha Handy DO Work Phone: 8(661)653-471754 [place] [address] 11-11-2024 17:46-0400 Body weight 62.[address] Keisha Handy DO Work Phone: 8(294)041-223554 [place] [address] 10-19-2024 05:19-0400 Body temperature 97.8 [degF] Dr. Keisha Handy DO Work Phone: 0(068)540-925354 [place] [address] 10-19-2024 05:19-0400 Diastolic blood pressure 81 mm[Hg] Dr. Keisha Handy DO Work Phone: 7(810)645-288254 [place] [address] 10-19-2024 05:19-0400 Heart rate 95 /min Dr. Keisha Handy DO Work Phone: 6(662)885-276754 [place] [address] 10-19-2024 05:19-0400 Respiratory rate 16 /min Dr. Keisha Handy DO Work Phone: 4(495)069-391654 [place] [address] 10-19-2024 05:19-0400 SaO2% (BldA) [Mass fraction] 99 % Dr. Keisha Handy DO Work Phone: 2(493)055-104954 [place] [address] 10-19-2024 05:19-0400 Systolic blood pressure 127 mm[Hg] Dr. Keisha Handy DO Work Phone: [facility] 10-19-2024 00:09-0400 Body height 182.[address] Keisha Handy DO Work Phone: [facility] 10-19-2024 00:09-0400 Body mass index (BMI) [Ratio] 19.5 kg/m2 Dr. Keisha Handy DO Work Phone: [facility] 10-19-2024 00:09-0400 Body weight 65.[address] Keisha Handy DO Work Phone: [facility] 01-04-2023 00:24-0400 Diastolic blood pressure 81 mm[Hg] MD [facility] 01-04-2023 00:24-0400 Heart rate 87 /min MD [facility] 01-04-2023 00:24-0400 Respiratory rate 17 /min MD [facility] 01-04-2023 00:24-0400 SaO2% (BldA) [Mass fraction] 100 % MD [facility] 01-04-2023 00:24-0400 Systolic blood pressure 117 mm[Hg] MD [facility] 01-03-2023 22:18-0400 Body height 182.88 cm MD Bright [facility] 01-03-2023 22:18-0400 Body mass index (BMI) [Ratio] 19.9 kg/m2 MD [facility] 01-03-2023 22:18-0400 Body temperature 96.6 [degF] MD [facility] 01-03-2023 22:18-0400 Body weight 66.7 kg MD [facility] 12-09-2022 21:44-0400 Heart rate 110 /min MD [facility] 12-09-2022 21:44-0400 Respiratory rate 18 /min MD [facility] 12-09-2022 20:08-0400 SaO2% (BldA) [Mass fraction] 99 % [facility]-09-[facility]22 18:04-0400 Body mass index (BMI) [Ratio] 20.4 kg/m2 MD Deangelo Noel [facility] 12-09-2022 18:04-0400 Body weight 62.7 kg MD Deangelo Noel [facility] 12-09-2022 17:39-0400 Body height 175.26 cm [facility] 12-09-2022 17:39-0400 Body temperature 97.9 [degF] MD [facility] 12-09-2022 17:39-0400 Diastolic blood pressure 63 mm[Hg] MD [facility] 12-09-2022 17:39-0400 Systolic blood pressure 94 mm[Hg] MD [facility] 12-03-2022 22:45-0400 Diastolic blood pressure 84 mm[Hg] MD [facility] 12-03-2022 22:45-0400 Heart rate 104 /min MD [facility] 12-03-2022 22:45-0400 Respiratory rate 18 /min MD [facility] 12-03-2022 22:45-0400 SaO2% (BldA) [Mass fraction] 97 % MD [facility] 12-03-2022 22:45-0400 Systolic blood pressure 127 mm[Hg] MD Bright [facility] 12-03-2022 20:03-0400 Body height 172.72 cm MD Bright [facility] 12-03-2022 20:03-0400 Body mass index (BMI) [Ratio] 22 kg/m2 MD [facility] 12-03-2022 20:03-0400 Body temperature 97.9 [degF] MD Bright [facility] 12-03-2022 20:03-0400 Body weight 65.7 kg MD Bright [facility] 11-17-2022 14:00-0400 Heart rate 115 /min MD Deangelo Noel [facility] 11-17-2022 14:00-0400 Respiratory rate 13 /min MD [facility] 11-17-2022 14:00-0400 SaO2% (BldA) [Mass fraction] 97 % MD [facility] 11-17-2022 00:52-0400 Body mass index (BMI) [Ratio] 18.1 kg/m2 MD [facility] 11-17-2022 00:52-0400 Body weight 60.7 kg MD [facility] 11-17-2022 00:10-0400 Body height 182.88 cm MD [facility] 11-17-2022 00:10-0400 Body temperature 97.9 [degF] MD [facility] 11-17-2022 00:10-0400 Diastolic blood pressure 62 mm[Hg] MD [facility] 11-17-2022 00:10-0400 Systolic blood pressure 120 mm[Hg] MD [facility] 10-13-2022 06:21-0500 Diastolic blood pressure 90 mm[Hg] MD Bright [facility] 10-13-2022 06:21-0500 Systolic blood pressure 129 mm[Hg] MD [facility] 10-13-2022 03:49-0500 Body height 162.56 cm MD [facility] 10-13-2022 03:49-0500 Body mass index (BMI) [Ratio] 24.4 kg/m2 MD Bright [facility] 10-13-2022 03:49-0500 Body temperature 97.7 [degF] MD Bright [facility] 10-13-2022 03:49-0500 Body weight 64.6 kg MD [facility] 10-13-2022 03:49-0500 Heart rate 120 /min MD [facility] 10-13-2022 03:49-0500 Respiratory rate 14 /min MD [facility] 10-13-2022 03:49-0500 SaO2% (BldA) [Mass fraction] 99 % MD Bright [facility] 08-24-2022 23:11-0500 Diastolic blood pressure 82 mm[Hg] MD [facility] 08-24-2022 23:11-0500 Heart rate 120 /min MD [facility] 08-24-2022 23:11-0500 SaO2% (BldA) [Mass fraction] 99 % MD Bright [facility] 08-24-2022 23:11-0500 Systolic blood pressure 126 mm[Hg] MD Bright [facility] 08-24-2022 21:15-0500 Body temperature 98 [degF] MD [facility] 08-24-2022 21:15-0500 Respiratory rate 16 /min MD [facility] 08-24-2022 21:12-0500 Body height 162.56 cm [facility] 08-24-2022 21:12-0500 Body mass index (BMI) [Ratio] 24.7 kg/m2 MD Bright [facility] 08-24-2022 21:12-0500 Body weight 65.4 kg MD [facility] 08-20-2022 14:36-0500 Body temperature 97.8 [degF] MD [facility] 08-20-2022 14:36-0500 Diastolic blood pressure 77 mm[Hg] MD Bright [facility] 08-20-2022 14:36-0500 Heart rate 108 /min MD [facility] 08-20-2022 14:36-0500 Respiratory rate 16 /min MD [facility] 08-20-2022 14:36-0500 SaO2% (BldA) [Mass fraction] 97 % MD Bright [facility] 08-20-2022 14:36-0500 Systolic blood pressure 111 mm[Hg] MD [facility] 08-20-2022 06:00-0500 Body weight 64.6 kg MD [facility] 08-19-2022 09:33-0500 Body height 182.88 cm [facility] Work Phone: 08-18-2022 15:00-0500 Inhaled oxygen flow rate 2 L/min MD Bright [facility] 08-18-2022 11:46-0500 Body mass index (BMI) [Ratio] 20.3 kg/m2 MD Bright [facility] 07-07-2022 20:35-0500 Diastolic blood pressure 93 mm[Hg] MD [facility] 07-07-2022 20:35-0500 Heart rate 114 /min MD [facility] 07-07-2022 20:35-0500 Respiratory rate 15 /min MD Bright [facility] 07-07-2022 20:35-0500 SaO2% (BldA) [Mass fraction] 96 % [facility] 07-07-2022 20:35-0500 Systolic blood pressure 127 mm[Hg] MD Bright [facility] 07-07-2022 14:41-0500 Body mass index (BMI) [Ratio] 23.3 kg/m2 [facility] 07-07-2022 14:41-0500 Body temperature 98 [degF] MD [facility] 07-07-2022 14:41-0500 Body weight 69.42 kg MD [facility] 07-01-2022 03:13-0500 Diastolic blood pressure 85 mm[Hg] MD Bright [facility] 07-01-2022 03:13-0500 Heart rate 135 /min MD [facility] 07-01-2022 03:13-0500 Respiratory rate 16 /min MD Bright [facility] 07-01-2022 03:13-0500 SaO2% (BldA) [Mass fraction] 100 % MD Bright [facility] 07-01-2022 03:13-0500 Systolic blood pressure 123 mm[Hg] MD Bright [facility] 06-30-2022 22:31-0500 Body temperature 97.4 [degF] MD [facility] 06-30-2022 22:26-0500 Body height 177.8 cm MD [facility] Work Phone: 06-30-2022 22:26-0500 Body mass index (BMI) [Ratio] 23.1 kg/m2 MD Bright [facility] 06-30-2022 22:26-0500 Body weight 73.3 kg MD [facility] 03-03-2022 08:30-0400 SaO2% (BldA) [Mass fraction] 98 % MD Bright [facility] Work Phone: 03-03-2022 08:00-0400 Body temperature 97.9 [degF] MD [facility] Work Phone: 03-03-2022 08:00-0400 Diastolic blood pressure 67 mm[Hg] MD Bright [facility] Work Phone: 03-03-2022 08:00-0400 Heart rate 101 /min MD [facility] Work Phone: 03-03-2022 08:00-0400 Respiratory rate 18 /min MD Bright [facility] Work Phone: 03-03-2022 08:00-0400 Systolic blood pressure 111 mm[Hg] MD Bright [facility] Work Phone: 03-03-2022 05:12-0400 Body weight 56.8 kg [facility] Work [facility]: 2022 15:50-0400 Body height 177.8 cm MD Bright [facility] Work Phone: 2022 12:30-0400 Body mass index (BMI) [Ratio] 17.9 kg/m2 MD Bright [facility] Work Phone: 2022 12:00-0400 Body temperature 97.7 [degF] [facility] Work Phone: 2022 12:00-0400 Diastolic blood pressure 93 mm[Hg] [facility] Work Phone: 2022 12:00-0400 Heart rate 160 /min [facility] Work Phone: 2022 12:00-0400 Respiratory rate 22 /min [facility] Work Phone: 2022 12:00-0400 SaO2% (BldA) [Mass fraction] 98 % [facility] Work Phone: 2022 12:00-0400 Systolic blood pressure 138 mm[Hg] [facility] Work Phone: 2022 10:13-0400 Body height 177.8 cm [facility] Work Phone: 2022 10:13-0400 Body mass index (BMI) [Ratio] 19.3 kg/m2 [facility] Work Phone: 2022 10:13-0400 Body weight 61.23 kg [facility] Work Phone: 01-31-2022 10:10-0400 Body height 177.8 cm [facility] Work Phone: 01-31-2022 10:10-0400 Body mass index (BMI) [Ratio] 18.6 kg/m2 [facility] Work Phone: 01-31-2022 10:10-0400 Body temperature 98 [degF] [facility] Work Phone: 01-31-2022 10:10-0400 Body weight 58.96 kg [facility] Work Phone: 01-31-2022 10:10-0400 Diastolic blood pressure 80 mm[Hg] [facility] Work Phone: 01-31-2022 10:10-0400 Heart rate 75 /min [facility] Work Phone: 01-31-2022 10:10-0400 Respiratory rate 16 /min [facility] Work Phone: 01-31-2022 10:10-0400 SaO2% (BldA) [Mass fraction] 99 % [facility] Work Phone: 01-31-2022 10:10-0400 Systolic blood pressure 92 mm[Hg] [facility] Work Phone: 01-19-2022 09:41-0400 Body mass index (BMI) [Ratio] 16.5 kg/m2 [facility] Work Phone: 01-19-2022 09:41-0400 Body temperature 97.9 [degF] [facility] Work Phone: 01-19-2022 09:41-0400 Body weight 52.16 kg [facility] Work Phone: 01-19-2022 09:41-0400 Diastolic blood pressure 70 mm[Hg] [facility] Work Phone: 01-19-2022 09:41-0400 Heart rate 106 /min [facility] Work Phone: 01-19-2022 09:41-0400 Respiratory rate 16 /min [facility] Work Phone: 01-19-2022 09:41-0400 SaO2% (BldA) [Mass fraction] 97 % [facility] Work Phone: 01-19-2022 09:41-0400 Systolic blood pressure 105 mm[Hg] [facility] Work Phone: 01-15-2017 03:55-0400 Body surface area Derived from formula 240.08 mL/min Ge Stafford MD [facility] Work Phone: 12-10-2016 16:10-0400 BP Diastolic 66 mm[Hg] Edwina Quintero NP [facility] Work Phone: 12-10-2016 16:10-0400 BP Systolic 104 mm[Hg] Edwina Quintero PBX TEACHER [facility] Work Phone: 12-10-2016 16:10-0400 Pulse (Heart Rate) 86 /min Edwina Quintero [employer] TE[employer] [facility] Work Phone: 12-10-2016 16:10-0400 Respiratory Rate 14 /min Edwina Quintero NP [facility] Work Phone: 12-10-2016 16:10-0400 Weight 67.13 kg Edwina Quintero NP [facility] Work Phone: 11-12-2016 15:36-0400 BMI (Body Mass Index) 24.79 kg/m2 Edwina Quintero [employer] TEACH[employer] [facility] Work Phone: 11-12-2016 15:36-0400 Body Temperature 98.01 [degF] Edwina Quintero PBX TEACHER [facility] Work Phone: 11-12-2016 15:36-0400 Body Temperature 98 [degF] Edwina Quintero PBX TEACHER [facility] Work Phone: 11-12-2016 15:36-0400 BP Diastolic 69 mm[Hg] Edwina Quintero PBX TEACHER [facility] Work Phone: 11-12-2016 15:36-0400 BP Systolic 105 mm[Hg] Edwina Quintero PBX TEACHER [facility] Work Phone: 11-12-2016 15:36-0400 BSA (Body Surface Area) 1.75 m2 Edwina Quintero PBX TEACHER [facility] Work Phone: 11-12-2016 15:36-0400 Height 165.1 cm Edwina Quintero NP [facility] Work Phone: 11-12-2016 15:36-0400 Pulse [...] Date Encounter Type Care Provider Facility Start: 04-21-2025 End: 04-21-2025 Emergency department patient visit No Primary Care Physician -Emergency Department Work Phone: Start: 03-04-2025 End: 03-04-2025 Emergency department patient visit DR LIZ ROSE DO [facility] Start: 02-28-2025 Non-patient / Non-visit Dr. Malena Nelson MD -[facility] Work Phone: Start: 02-27-2025 End: 02-28-2025 ambulatory No Primary Care Physician Facility:[facility] Start: 02-27-2025 End: 02-28-2025 Evaluation and management of inpatient Dr. Marcelina Erickson MD -Intensive Care Unit Work Phone: Start: 02-05-2025 End: 02-05-2025 ambulatory No Primary Care Physician Facility:[facility] Start: 02-05-2025 End: 02-05-2025 Evaluation and management of inpatient Dr. Sarah Oh MD -Intensive Care Unit Work Phone: Start: 01-26-2025 End: 01-26-2025 Emergency department patient visit Dr. Keisha Handy DO Work Phone: -Emergency Department Work Phone: Start: 12-18-2024 ambulatory Kristy Crespo VSC Facili ty:[facility] Start: 12-13-2024 End: 12-14-2024 Emergency [...] Work Phone: Start: 10-10-2024 End: 10-10-2024 ambulatory Facility:[facility] Start: 01-03-2023 End: 01-04-2023 Emergency department patient visit MD Deangelo Noel [facility] Start: 12-09-2022 End: 12-09-2022 Emergency department patient visit MD Deangelo Noel [facility] Start: 12-03-2022 End: 12-03-2022 Emergency department patient visit MD Deangelo Noel [facility] Start: 11-17-2022 End: 11-17-2022 Emergency department patient visit MD Deangelo Noel [facility]Emergency Department Start: 10-13-2022 Non-patient / Non-visit MD Alessandra Noel [facility] Start: 10-13-2022 End: 10-13-2022 ambulatory MD Deangelo Noel [facility] Work Phone: Start: 10-13-2022 End: 10-13-2022 Patient encounter procedure MD Deangelo Noel [facility] Start: 10-13-2022 End: 10-13-2022 Emergency department patient visit MD [facility]Emergency Department Start: 10-05-2022 Orders Only Deangelo garcía MD Work Phone: [facility] Start: 10-03-2022 Telephone encounter Deangelo canales MD Work Phone: [facility] Comment on above: Letter Start: 09-22-2022 Telephone encounter Phillip jiménez APRN.METAL ENGINEERING PROCESS WORKER Work Phone: [facility] Comment on above: Appointment Start: 08-24-2022 End: 08-24-2022 Emergency department patient visit MD [facility]Emergency Department Start: 08-21-2022 Refill Phillip HINOJOSA RN.METAL ENGINEERING PROCESS WORKER Work Phone: [facility] Comment on above: Refill Request Start: 08-20-2022 [facility] / [facility] Start: 08-19-2022 Non-patient / Non-visit MD Deangelo Escobar [facility] Start: 08-18-2022 Non-patient / Non-visit MD Deangelo Escobar [facility] Start: 08-18-2022 End: 08-20-2022 Evaluation and management of inpatient MD [facility]-Medical Surgical 2 Start: 07-09-2022 Telephone encounter Deangelo canales MD Work Phone: [facility] Comment on above: Insurance Authorizat ion ([employer] ) Start: 07-07-2022 End: 07-07-2022 Emergency department patient visit MD [facility]Emergency Department Start: 07-07-2022 End: 07-07-2022 Patient encounter lilo Caldera APRN.METAL ENGINEERING PROCESS WORKER Work Phone: [facility] Comment on above: Chest pain, unspecif ied type (Primary Dx); High blood sugar APPOINTMENT CANCELLE D (Primary Dx); Uncontrolled type 1 diabetes mellitus with hypoglycemia without coma (HCC); Type I (juvenile type) diabetes mellitus without mention of complication, not stated as uncontrolled (HCC) Start: 06-30-2022 End: 07-01-2022 Emergency department patient visit MD Deangelo Noel [facility]-Emergency Department Start: 06-11-2022 Telephone encounter Deangelo canales MD Work Phone: [facility] Comment on above: Results Start: 06-09-2022 Telephone encounter Deangelo canales MD Work Phone: [facility] Comment on above: Urgent value Start: 06-07-2022 Telephone encounter Radha Hameed APRN.METAL ENGINEERING PROCESS WORKER Work Phone: [facility] Comment on above: Medication Problem Refill Request Start: 03-04-2022 Patient Outreach Meena Rubina alexandra APRN.METAL ENGINEERING PROCESS WORKER Work Phone: [facility] Comment on above: Transition Of Care Start: 03-03-2022 Non-patient / Non-visit MD Deangelo Escobar [facility] Start: 2022 Non-patient / Non-visit MD Deangelo Escobar [facility] Start: 2022 End: 03-03-2022 Evaluation and management of inpatient [facility]-Intensive Care Unit Start: 01-31-2022 End: 01-31-2022 Emergency department patient visit [facility]Emergency Department Start: 01-19-2022 End: 01-19-2022 Emergency department patient visit [facility]-Emergency Department Start: 11-17-2021 ambulatory Phillip HINOJOSA RN.METAL ENGINEERING PROCESS WORKER Work Phone: [facility] Comment on above: PHMA/Care Gap Outrea ch Start: 06-26-2021 Telephone encounter Deangelo canales MD Work Phone: [facility] Comment on above: Insurance Authorizat ion Start: 04-21-2018 End: 04-22-2018 Patient encounter AUBREY SMITHMARISOL [facility] Start: 03-20-2018 End: 03-23-2018 Evaluation and management of inpatient GLO KOENIG [facility] Start: 01-13-2018 End: 01-14-2018 Ambulatory RON HUDSON [facility] Start: 12-27-2017 End: 12-27-2017 Ambulatory RON HUDSON [facility] Start: 12-21-2017 End: 12-22-2017 Ambulatory RON HUDSON [facility] Start: 12-17-2017 End: 12-18-2017 Ambulatory RON HUDSON [facility] Start: 12-17-2017 End: 12-17-2017 Ambulatory ISIDRO BRAR [facility] Start: 12-10-2017 End: 12-11-2017 Ambulatory ISIDRO HELEN [facility] Start: 11-20-2017 End: 12-06-2017 Evaluation and management of inpatient [facility] Procedures Date Procedure Procedure Detail Performing Clinician Start: 04-21-2025 Plain X-ray of clavicle No Primary Care Physician Start: 04-21-2025 Plain X-ray of shoulder No Primary Care Physician Start: 02-28-2025 Estimated creatinine clearance No Primary [...] 01-26-2025 Methadone measuremen t, urine Dr. Keisha Hanyd DO Work Phone: Start: 01-26-2025 X-ray of chest, PA a nd lateral views Dr. Keisha Handy DO Work Phone: Start: 01-26-2025 D-dimer assay, quantitative Dr. Keisha Handy DO Work Phone: Comment on above: NORMAL D-Dimer level (<0.50) indicates no DVT or PE. Start: 01-26-[address] Keisha Handy DO Work Phone: Start: 12-14-[address] Keihsa Handy DO Work Phone: Start: 12-13-2024 Urnls [...] PE. Start: 10-19-[address] Kesiha Handy DO Work Phone: Start: 01-03-2023 Plain chest X-ray MD Lior matias [facility] Start: 12-09-2022 Plain chest X-ray MD Lior matias [facility] Start: 12-03-2022 CT angiography of ch est with contrast MD Deangelo ORELLANA Start: 12-03-2022 Plain chest X-ray MD [facility] [facility] Start: 11-17-2022 CT angiography of ch est with contrast MD Deangelo Noel [facility] Start: 11-17-2022 Plain chest [facility] Start: 10-13-2022 Plain chest X-ray MD [facility]ias [facility] Start: 08-18-2022 Plain chest X-ray MD [facility]ias [facility] Start: 07-07-2022 Plain chest X-ray MD [facility]ias [facility] Start: 06-30-2022 Plain chest X-ray MD [facility]ias [facility] Start: 01-19-2022 Plain X-ray of tibia and fibula Start: 06-22-2018 Adult depression scr eening assessment Phillip Howe APRN.METAL ENGINEERING PROCESS WORKER Work Phone: Start: 11-12-2016 End: 11-12-2016 *Microalbumin, Creatine Ratio, rand urine Edwina Quintero PBX TEACHER Work Phone: Start: 11-12-2016 End: 11-13-2016 HbA1c Edwina Quintero PBX TEACHER Work Phone: Respiratory Panel (PCR) MD Alex [...] profile DTAP,TDAP,TD (8 - Td or Tdap) [facility] Start: 04-21-2025 [facility] Start: 02-28-2025 Patient discharge [facility] Start: 02-27-2025 Care regimes management [facility] Start: 02-27-2025 Notification of physician [facility] Start: 02-27-2025 [facility] Start: 02-27-2025 Assessment of risk of venous thromboembolism [facility] Start: 02-27-2025 Care regimes management [facility] Start: 02-27-2025 Insertion of catheter into peripheral vein [facility] Start: 02-27-2025 Lab findings surveillance [facility] Start: 02-27-2025 Measuring intake and output [facility] Start: 02-27-2025 Nil by mouth [facility] Start: 02-27-2025 Notification of physician [facility] Start: 02-27-2025 Patient referral to [facility] Start: 02-27-2025 Providing care according to standard [facility] Start: 02-27-2025 Vital signs measurements [facility] Start: 02-27-2025 End: 02-27-2025 [facility] Start: 02-27-2025 Following clinical pathway protocol [facility] Start: 02-27-2025 Gas panel - Venous blood [facility] Start: 02-27-2025 Verification routine [facility] Start: 02-27-2025 Admission procedure [facility] Start: 02-27-2025 Hospital admission, emergency, from emergency room, medical nature [facility] Start: 02-27-2025 Patient referral to [facility] Start: 02-05-2025 Patient discharge [facility] Start: 02-05-2025 End: 02-05-2025 [facility] Start: 02-05-2025 Care regimes management [facility] Start: 02-05-2025 Notification of physician [facility] Start: 02-05-2025 Assessment of risk of venous thromboembolism [facility] Start: 02-05-2025 Continuous pulse oximetry [facility] Start: 02-05-2025 End: 02-05-2025 Following clinical pathway protocol [facility] Start: 02-05-2025 Incentive spirometry [facility] Start: 02-05-2025 Inhalation therapy procedure [facility] Start: 02-05-2025 Insertion of catheter into peripheral vein [facility] Start: 02-05-2025 Introduction of urinary catheter [facility] Start: 02-05-2025 Lab findings surveillance [facility] Start: 02-05-2025 Measuring intake and output [facility] Start: 02-05-2025 Notification of physician [facility] Start: 02-05-2025 Oxygen therapy [facility] Start: 02-05-2025 Patient education [facility] Start: 02-05-2025 Patient referral to dietitian [facility] Start: 02-05-2025 Providing care according to standard [facility] Start: 02-05-2025 Provision of activity privileges [facility] Start: 02-05-2025 Referral to service [facility] Start: 02-05-2025 Tobacco use cessation education [facility] Start: 02-05-2025 Vital signs measurements [facility] Start: 02-05-2025 [facility] Start: 02-05-2025 Admission procedure [facility] Start: 02-05-2025 Hospital admission, emergency, from emergency room, medical nature [facility] Start: 02-05-2025 Verification routine [facility] Start: 02-05-2025 Serum inorganic phosphate measurement [facility] Start: 01-26-2025 [facility] Start: 01-26-2025 [facility] Start: 12-14-2024 [facility] Start: 12-12-2024 [facility] Start: 11-11-2024 [facility] Start: 10-19-2024 [facility] Start: 10-19-2024 [facility] Start: 08-25-2023 ANNUAL PCP TEAM CHRONIC DISEASE VISIT ANNUAL PCP TEAM CHRONIC DISEASE VISIT [facility] Start: 07-07-2023 ANNUAL PCP TEAM CHRONIC DISEASE VISIT ANNUAL PCP TEAM CHRONIC DISEASE VISIT [facility] Start: 06-09-2023 ANNUAL PCP TEAM CHRONIC DISEASE VISIT ANNUAL PCP TEAM CHRONIC DISEASE VISIT [facility] Start: 06-09-2023 Hepatitis B surface antibody level LDL CHOLESTEROL [facility] Start: 01-03-2023 [facility] Start: 12-09-2022 [facility] Start: 12-04-2022 [facility] Start: 12-03-2022 [facility] Start: 11-18-2022 [facility] Start: 11-17-2022 [facility] Start: 10-13-2022 Assay of troponin quantitative ASSAY OF TROPONIN QUANT [facility] Start: 10-13-2022 Basic metabolic panel calcium total METABOLIC PANEL TOTAL CA [facility] Start: 10-13-2022 Blood count complete auto&auto difrntl wbc COMPLETE CBC W/AUTO DIFF WBC [facility] Start: 10-13-2022 Ecg routine ecg w/least 12 lds trcg only w/o i&r ELECTROCARDIOGRAM TRACING [facility] Start: 10-13-2022 Iv infusion hydration each additional hour HYDRATE IV INFUSION ADD-ON [facility] Start: 10-13-2022 Iv infusion hydration initial 31 min-1 hour HYDRATION IV INFUSION INIT [facility] Start: 10-13-2022 Radiologic exam chest single view X-RAY EXAM CHEST 1 VIEW [facility] Start: 09-09-2022 Hemoglobin A1c/Hemoglobin.total in Blood HBA1C [facility] Start: 08-20-2022 Patient discharge [facility] Start: 08-19-2022 Care planning and problem solving actions [facility] Start: 08-19-2022 Care regimes management [facility] Start: 08-19-2022 Notification of physician [facility] Start: 08-19-2022 [facility] Start: 08-18-2022 End: 08-19-2022 [facility] Start: 08-18-2022 Ambulation without limitation [facility] Start: 08-18-2022 Assessment of risk of venous thromboembolism [facility] Start: 08-18-2022 Continuous pulse oximetry [facility] Start: 08-18-2022 End: 08-18-2022 Following clinical pathway protocol [facility] Start: 08-18-2022 Inhalation therapy procedure [facility] Start: 08-18-2022 Insertion of catheter into peripheral vein [facility] Start: 08-18-2022 Lab findings surveillance [facility] Start: 08-18-2022 Measuring intake and output [facility] Start: 08-18-2022 Notification of physician [facility] Start: 08-18-2022 Patient education [facility] Start: 08-18-2022 Patient referral to dietitian [facility] Start: 08-18-2022 Providing care according to standard [facility] Start: 08-18-2022 Vital signs measurements [facility] Start: 08-18-2022 Admission procedure [facility] Start: 08-09-2022 DEPRESSION ASSESSMENT DEPRESSION ASSESSMENT [facility] Start: 07-07-2022 [facility] Start: 06-30-2022 [facility] Start: 06-25-2022 ANNUAL PCP TEAM CHRONIC DISEASE VISIT ANNUAL PCP TEAM CHRONIC DISEASE VISIT [facility] Start: 04-09-2022 Influenza vaccination INFLUENZA (#1) [facility] Start: 03-03-2022 Patient discharge [facility] Work Phone: Start: 03-03-2022 Care regimes management [facility] Work Phone: Start: 03-03-2022 Notification of physician [facility] Work Phone: Start: 03-03-2022 Patient referral to dietitian [facility] Work Phone: Start: 03-03-2022 [facility] Work Phone: Start: 2022 [facility] Work Phone: Start: 2022 Application of intermittent pneumatic compression device [facility] Work Phone: Start: 2022 Assessment of risk of venous thromboembolism [facility] Work Phone: Start: 2022 Continuous pulse oximetry [facility] Work Phone: Start: 2022 End: 2022 Following clinical pathway protocol [facility] Work Phone: Start: 2022 Insertion of catheter into peripheral vein [facility] Work Phone: Start: 2022 Lab findings surveillance [facility] Work Phone: Start: 2022 Measuring intake and output [facility] Work Phone: Start: 2022 Notification of physician [facility] Work Phone: Start: 2022 Patient education [facility] Work Phone: Start: 2022 Patient referral to dietitian [facility] Work Phone: Start: 2022 Providing care according to standard [facility] Work Phone: Start: 2022 Vital signs measurements [facility] Work Phone: Start: 2022 [facility] Work Phone: Start: 2022 Blood chemistry [facility] Work Phone: Start: 2022 Verification routine [facility] Work Phone: Start: 2022 Admission procedure [facility] Work Phone: Start: 2022 Urinalysis complete panel - Urine [facility] Work Phone: Start: 2022 End: 2022 [facility] Work Phone: Start: 2022 [facility] Work Phone: Start: 01-08-2022 Hepatitis B screening URINE ALBUMIN:CREATININE RATIO [facility] Start: 01-08-2022 Hepatitis B surface antibody level LDL CHOLESTEROL [facility] Start: 11-17-2021 End: 01-17-2022 ALBUMIN/CREAT RATIO RND UR ALBUMIN/CREAT RATIO RND UR Lab Routine Uncontrolled type 1 diabetes mellitus with hypoglycemia without coma (HCC) Expected: 11/17/2021, Expires: 01/17/2022 [facility] Work Phone: Comment on above: Expected: 11/17/2021, Expires: 2 Start: 08-09-2021 DEPRESSION ASSESSMENT DEPRESSION ASSESSMENT [facility] Start: 04-10-2021 Hemoglobin A1c/Hemoglobin.total in Blood HBA1C [facility] Start: 09-22-2020 3 comp foot exam completed DIABETIC FOOT EXAM [facility] Start: 06-22-2019 Adult depression screening assessment DEPRESSION SCREENING [facility] Start: 05-11-2017 Hepatitis C antibody, confirmatory test DILATED RETINAL EXAM [facility] Start: 03-15-2017 End: 03-15-2017 Appointment Appointment [facility] Work Phone: Start: 03-15-2017 End: [...] End: 12-12-2016 Lipid panel [AGGREGATE] *Lipid Profile [facility] Work Phone: Start: 12-10-2016 End: 12-12-2016 Office/outpatient visit, est, level 3 [id number] Vst-Est Level III [facility] Work Phone: Start: 11-12-2016 End: 11-12-2016 *CMP Complete Metabolic Panel *CMP Complete Metabolic Panel [facility] Work Phone: Start: 11-12-2016 End: 11-12-2016 *Microalbumin, Creatine Ratio, rand urine *Microalbumin, Creatine Ratio, rand urine [facility] Work Phone: Start: 11-12-2016 End: 11-13-2016 HbA1c [facility] Work Phone: Start: 11-12-2016 End: 11-12-2016 Lipid panel [AGGREGATE] *Lipid Profile [facility] Work Phone: Start: 2015 HEPATITIS C SCREENING HEPATITIS C SCREENING [facility] Start: 2015 HIV SCREENING HIV SCREENING [facility] Start: 10-10-2013 PNEUMOCOCCAL (2 - PPSV23 if available, else PCV20) PNEUMOCOCCAL (2 - PPSV23 if available, else PCV20) [facility] Start: 10-10-2013 PNEUMOCOCCAL (2 - PPSV23 or PCV20) PNEUMOCOCCAL (2 - PPSV23 or PCV20) [facility] Start: 10-02-2013 HPV VACCINE (3 - Male 3-dose series) HPV VACCINE (3 - Male 3-dose series) [facility] Start: 2013 ONE PNEUMOVAX PRIOR TO AGE 65 ONE PNEUMOVAX PRIOR TO AGE 65 [facility] Start: 12-05-2012 PNEUMOCOCCAL (2 - PPSV23 if available, else PCV20) PNEUMOCOCCAL (2 - PPSV23 if available, else PCV20) [facility] Start: 2011 PEDS TO ADULT TRANSITION ANNUAL ASSESSMENT PEDS TO ADULT TRANSITION ANNUAL ASSESSMENT [facility] Start: 2009 PEDS TO ADULT TRANSITION INITIAL DISCUSSION PEDS TO ADULT TRANSITION INITIAL DISCUSSION [facility] Start: 2007 MENINGOCOCCAL B: Consider based on risk (1 of 2 - Risk Bexsero 2-dose series) MENINGOCOCCAL B: Consider based on risk (1 of 2 - Risk Bexsero 2-dose series) [facility] Start: 2002 COVID-19 VACCINE (1) COVID-19 VACCINE (1) [facility] Start: 1997 COVID-19 VACCINE (#1) COVID-19 VACCINE (#1) [facility] Anion gap in Serum o r Plasma [facility] Anion gap in Serum o r Plasma [facility] Anion gap measurement [facility] Work Phone: Beta hydroxybutyrate [Mass/volume] in Serum or Plasma [facility] Beta hydroxybutyrate [Mass/volume] in Serum or Plasma [facility] Bilirubin measuremen t, urine [facility] BUN/Creatinine ratio [facility] Work Phone: BUN/Creatinine ratio [facility] BUN/Creatinine ratio [facility] Calcium [Mass/volume ] in Serum or Plasma [facility] Work Phone: Calcium [Mass/volume ] in Serum or Plasma [facility] Calcium [Mass/volume ] in Serum or Plasma [facility] Carbon dioxide, tota l [Moles/volume] in Central venous blood [facility] Carbon dioxide, tota l [Moles/volume] in Central venous blood [facility] Carbon dioxide, tota l [Moles/volume] in Serum or Plasma [facility] Work Phone: Chloride [Moles/volu me] in Serum or Plasma [facility] Work Phone: Creatinine [Mass/volume] in Serum or Plasma [facility] Creatinine [Mass/volume] in Serum or Plasma [facility] Creatinine [Moles/volume] in Serum or Plasma [facility] Work Phone: Erythrocyte mean corpuscular volume determination [facility] Glucose [Mass/volume ] in Serum or Plasma [facility] Work Phone: Glucose [Mass/volume ] in Serum or Plasma [facility] Glucose [Mass/volume ] in Serum or Plasma [facility] Hematocrit [Volume Fraction] of Blood [facility] Hemoglobin [Mass/volume] in Blood [facility] Hemoglobin [Presence ] in Urine [facility] Leukocytes [#/volume ] in Blood [facility] Magnesium measurement [facility] Mean corpuscular hemoglobin concentration determination [facility] Mean corpuscular hemoglobin determination [facility] Measurement of keton es in urine using dipstick [facility] Measurement of renal function [facility] Work Phone: Measurement of renal function [facility] Measurement of renal function [facility] Microscopic urinalysis [facility] Neutrophil count [facility] Neutrophil percent differential count [facility] Organism count, microscopic method [facility] Patient Education [facility] Work Phone: Patient referral [facility] Work Phone: pH of Urine [facility] Platelets [#/volume] in Blood [facility] Potassium [Moles/volume] in Serum or Plasma [facility] Work Phone: Potassium measurement [facility] Potassium measurement [facility] Red blood cell count [facility] Red cell distributio n width determination [facility] Serum chloride measurement [facility] Serum chloride measurement [facility] Sodium [Moles/volume ] in Serum or Plasma [facility] Work Phone: Sodium measurement [facility] Sodium measurement [facility] Specific gravity of Urine [facility] Urea nitrogen [Mass/volume] in Serum or Plasma [facility] Work Phone: Urea nitrogen [Mass/volume] in Serum or Plasma [facility] Urea nitrogen [Mass/volume] in Serum or Plasma [facility] Urine dipstick for glucose [facility] Urine dipstick for leukocyte esterase [facility] Urine dipstick for nitrite [facility] Urine dipstick for protein [facility] Urine examination [facility] Urine microscopy: epithelial cells [facility] Urine microscopy: re d cells [facility] Urobilinogen [Presen ce] in Urine [facility] White blood cell count [facility] Immunizations Immunization Date Immunization Notes Care Provider Fa cility 06-09-2022 influenza, injectabl e, quadrivalent, contains preservative Deangelo Noel MD Work Phone: [facility] 06-25-2021 influenza, injectabl e, quadrivalent, contains preservative Phillip Charles CONTRACT LOADER.METAL ENGINEERING PROCESS WORKER Work Phone: [facility] 10-01-2020 tetanus toxoid, reduced diphtheria toxoid, and acellular pertussis vaccine, adsorbed Phillip Charles CONTRACT LOADER.METAL ENGINEERING PROCESS WORKER Work Phone: [facility] 06-28-2019 influenza, injectabl e, quadrivalent, contains preservative Phillip Charles CONTRACT LOADER.METAL ENGINEERING PROCESS WORKER Work Phone: [facility] 11-20-2017 tetanus toxoid, reduced diphtheria toxoid, and acellular pertussis vaccine, adsorbed [facility] 05-18-2017 influenza, injectabl e, quadrivalent, preservative free Dr. Keisha Handy DO Work Phone: [facility] 05-18-2017 influenza, seasonal, injectable [facility] 08-28-2015 influenza, injectabl e, quadrivalent, preservative free Phillip Charles CONTRACT LOADER.METAL ENGINEERING PROCESS WORKER Work Phone: [facility] 08-09-2015 influenza, injectabl e, quadrivalent, preservative free Dr. Keisha Handy DO Work Phone: [facility] 08-09-2015 influenza, seasonal, injectable [facility] 06-13-2014 influenza, seasonal, injectable Phillip Charles CONTRACT LOADER.METAL ENGINEERING PROCESS WORKER Work Phone: [facility] 06-01-2013 human papilloma viru s vaccine, quadrivalent Phillip Charles CONTRACT LOADER.METAL ENGINEERING PROCESS WORKER Work Phone: [facility] Work Phone: 06-01-2013 influenza virus vaccine, unspecified formulation Phillip Charles CONTRACT LOADER.METAL ENGINEERING PROCESS WORKER Work Phone: [facility] Work Phone: 06-01-2013 Meningococcal, MCV4, unspecified conjugate formulation(groups A, C, Y and W-135) Phillip Charles CONTRACT LOADER.METAL ENGINEERING PROCESS WORKER Work Phone: [facility] Work Phone: 10-10-2012 human papilloma viru s vaccine, quadrivalent Phillip Charles CONTRACT LOADER.METAL ENGINEERING PROCESS WORKER Work Phone: [facility] 10-10-2012 pneumococcal conjuga te vaccine, 13 valent Phillip Charles CONTRACT LOADER.METAL ENGINEERING PROCESS WORKER Work Phone: [facility] 06-03-2010 influenza virus vaccine, unspecified formulation Phillip Charles CONTRACT LOADER.METAL ENGINEERING PROCESS WORKER Work Phone: [facility] 01-02-2009 Meningococcal, MCV4, unspecified conjugate formulation(groups A, C, Y and W-135) Phillip Charles CONTRACT LOADER.METAL ENGINEERING PROCESS WORKER Work Phone: [facility] Work Phone: 01-02-2009 tetanus toxoid, reduced diphtheria toxoid, and acellular pertussis vaccine, adsorbed Phillip Charles CONTRACT LOADER.METAL ENGINEERING PROCESS WORKER Work Phone: [facility] Work Phone: 06-17-2007 influenza virus vaccine, unspecified formulation Phillip Charles CONTRACT LOADER.METAL ENGINEERING PROCESS WORKER Work Phone: [facility] Work Phone: 06-28-2003 diphtheria, tetanus toxoids and pertussis vaccine Phillip Charles CONTRACT LOADER.METAL ENGINEERING PROCESS WORKER Work Phone: [facility] Work Phone: 06-28-2003 poliovirus vaccine, inactivated Phillip Charles CONTRACT LOADER.METAL ENGINEERING PROCESS WORKER Work Phone: [facility] Work Phone: 04-24-2002 hepatitis B vaccine, pediatric or pediatric/adolescent dosage Phillip Charles CONTRACT LOADER.METAL ENGINEERING PROCESS WORKER Work Phone: [facility] Work Phone: 04-24-2002 measles, mumps and rubella virus vaccine Phillip Charles CONTRACT LOADER.[facility] Work Phone: [facility] Work Phone: 03-18-2000 diphtheria, tetanus toxoids and pertussis vaccine Phillip Charles CONTRACT LOADER.[facility] Work Phone: [facility] Work Phone: 03-18-2000 haemophilus influenz ae type b vaccine, HbOC conjugate Phillip Charles CONTRACT LOADER.[facility] Work Phone: [facility] Work Phone: 03-18-2000 hepatitis B vaccine, pediatric or pediatric/adolescent dosage Phillip Charles CONTRACT LOADER.[facility] Work Phone: [facility] Work Phone: 03-18-2000 poliovirus vaccine, inactivated Phillip Charles CONTRACT LOADER.[facility] Work Phone: [facility] Work Phone: 06-10-1998 measles, mumps and rubella virus vaccine Phillip Charles CONTRACT LOADER.[facility] Work Phone: [facility] Work Phone: 1995 diphtheria, tetanus toxoids and pertussis vaccine Phillip Charles CONTRACT LOADER.[facility] Work Phone: [facility] Work Phone: 1995 haemophilus influenz ae type b vaccine, HbOC conjugate Phillip Charles CONTRACT LOADER.[facility] Work Phone: [facility] Work Phone: 1995 diphtheria, tetanus toxoids and pertussis vaccine Phillip Charles CONTRACT LOADER.[facility] Work Phone: [facility] Work Phone: 1995 haemophilus influenz ae type b vaccine, HbOC conjugate Phillip Charles CONTRACT LOADER.METAL ENGINEERING PROCESS WORKER Work Phone: [facility] Work Phone: 1995 poliovirus vaccine, inactivated Phillip Charles CONTRACT LOADER.METAL ENGINEERING PROCESS WORKER Work Phone: [facility] Work Phone: 1995 diphtheria, tetanus toxoids and pertussis vaccine Phillip Charles CONTRACT LOADER.METAL ENGINEERING PROCESS WORKER Work Phone: [facility] Work Phone: 1995 haemophilus influenz ae type b vaccine, HbOC conjugate Phillip Charles CONTRACT LOADER.METAL ENGINEERING PROCESS WORKER Work Phone: [facility] Work Phone: 1995 hepatitis B vaccine, pediatric or pediatric/adolescent dosage Phillip Charles CONTRACT LOADER.METAL ENGINEERING PROCESS WORKER Work Phone: [facility] Work Phone: 1995 poliovirus vaccine, inactivated Phillip Charles CONTRACT LOADER.METAL ENGINEERING PROCESS WORKER Work Phone: [facility] Work Phone: Payers Date Payer Category Payer Private Health Insurance [id number] 2024 Self-pay [id number] 2024 Medicaid [id number] 2021 Medicaid [employer]ICA[employer] [id number] 2021-Present [phone] [place] [id number] Medicaid [id number] 2021 Medicaid [id number] 1997 Unknown [id number] 627 Medicaid [id number] Medicaid [id number] Unknown [id number] Unknown [id number] 462 Unknown [id number]. 462 Unknown [id number]. 462 Unknown [id number]. 462 Unknown [id number]. 462 Unknown [id number]. 462 Unknown [id number]. 462 Unknown [id number]. 462 Unknown [id number]. 462 Unknown [id number]. 462 Unknown [id number]. 462 Unknown [id number] 462 Social History Date Type Detail Facility Start: 06-22-2018 End: 06-09-2022 Tobacco smoking status NHIS Never smoked tobacco [facility] History of tobacco use Cigarette Smoker [facility] History of tobacco use Cigar Smoker [facility] Start: 06-22-2018 End: 06-09-2022 Cigarettes smoked current (pack per day) - Reported 1 [facility] Start: 06-22-2018 End: 06-09-2022 Tobacco use and exposure User of smokeless tobacco [facility] History of tobacco use Chews Tobacco [facility] Start: 09-18-2021 End: 08-25-2022 Alcohol intake Current drinker of alcohol (finding) [facility] Start: 04-12-2018 History SDOH Alcohol Comment once a year [facility] Start: 05-11-2018 Education 13 [facility] Start: 08-28-2015 End: 06-09-2022 Tobacco Comment dad smokes inside and outside. Dad trying to quit. patient chews and smokes also [facility] Start: 1995 Sex Assigned At Not on file [facility] Start: 08-19-2021 End: 06-09-2022 Exposure to SARS-CoV-2 (event) Not sure [facility] Start: 01-31-2022 End: 01-03-2023 Tobacco smoking status NMIS Unknown if ever smoked [facility] Start: 11-25-2020 None [facility] Start: 11-25-2020 With Family [facility] Start: 11-25-2020 Cigarettes;Chew [facility] Start: 1995 Sex Assigned At Male W [facility] Start: 02-21-2022 End: 03-03-2022 Exposure to SARS-CoV-2 (event) Unable to assess [facility] Work Phone: Start: 10-19-2024 End: 04-21-2025 Tobacco smoking status NHIS Current some day smoker [facility] Start: 10-19-2024 End: 03-04-2025 Sex Male (finding) [facility] Tobacco smoking status [facility] Medical Equipment Procedure Code Equipment Code Equipment Original Text Equipment Identifier Dates INSULIN PEN NEEDLE [id number] Start: 01-16-2014 End: 07-07-2022 Comment on above: [...] 12-23-2017 Pen Needle, Diabetic (Comfort Ez Pen Hughson) 31 gauge x 5/16 needle Start: 12-22-2017 End: 12-23-2017 Pen Needle, Diabetic (Comfort Ez Pen Hughson) 31 gauge x 5/16 needle Start: 12-23-2017 End: 12-23-2017 Blood Sugar Diagnostic (Freestyle Lite Strips) strip Start: 12-23-2017 End: 12-23-2017 Pen Needle, Diabetic (Comfort Ez Pen Hughson) 31 gauge x 5/16 needle Start: 12-22-2017 End: 12-23-2017 Pen Needle, Diabetic (Comfort Ez Pen Hughson) 31 gauge x 5/16 needle Start: 12-23-2017 End: 12-23-2017 Blood Sugar Diagnostic (Freestyle Lite Strips) strip Start: 12-23-2017 End: 12-23-2017 Pen Needle, Diabetic (Comfort Ez Pen Hughson) 31 gauge x 5/16 needle Start: 12-22-2017 End: 12-23-2017 Pen Needle, Diabetic (Comfort Ez Pen Hughson) 31 gauge x 5/16 needle Start: 12-23-2017 End: 12-23-2017 Blood Sugar Diagnostic (Freestyle Lite Strips) strip Start: 12-23-2017 End: 12-23-2017 Pen Needle, Diabetic (Comfort Ez Pen Hughson) 31 gauge x 5/16 needle Start: 12-22-2017 End: 12-23-2017 Pen Needle, Diabetic (Comfort Ez Pen Hughson) 31 gauge x 5/16 needle Start: 12-23-2017 End: 12-23-2017 Blood Sugar Diagnostic (Freestyle Lite Strips) strip Start: 12-23-2017 End: 12-23-2017 Pen Needle, Diabetic (Comfort Ez Pen Hughson) 31 gauge x 5/16 needle Start: 12-22-2017 End: 12-23-2017 Pen Needle, Diabetic (Comfort Ez Pen Hughson) 31 gauge x 5/16 needle Start: 12-23-2017 End: 12-23-2017 Blood Sugar Diagnostic (Freestyle Lite Strips) strip Start: 12-23-2017 End: 12-23-2017 Pen Needle, Diabetic (Comfort Ez Pen Hughson) 31 gauge x 5/16 needle Start: 12-22-2017 End: 12-23-2017 Pen Needle, Diabetic (Comfort Ez Pen Hughson) 31 gauge x 5/16 needle Start: 12-23-2017 End: 12-23-2017 Blood Sugar Diagnostic (Freestyle Lite Strips) strip Start: 12-23-2017 End: 12-23-2017 Pen Needle, Diabetic (Comfort Ez Pen Hughson) 31 gauge x 5/16 needle Start: 12-22-2017 End: 12-23-2017 Pen Needle, Diabetic (Comfort Ez Pen Hughson) 31 gauge x 5/16 needle Start: 12-23-2017 End: 12-23-2017 Blood Sugar Diagnostic (Freestyle Lite Strips) strip Start: 12-23-2017 End: 12-23-2017 Pen Needle, Diabetic (Comfort Ez Pen Hughson) 31 gauge x 5/16 needle Start: 12-22-2017 End: 12-23-2017 Pen Needle, Diabetic (Comfort Ez Pen Hughson) 31 gauge x 5/16 needle Start: 12-23-2017 End: 12-23-2017 Blood Sugar Diagnostic (Freestyle Lite Strips) strip Start: 12-23-2017 End: 12-23-2017 Pen Needle, Diabetic (Comfort Ez Pen Hughson) 31 gauge x 5/16 needle Start: 12-22-2017 End: 12-23-2017 Pen Needle, Diabetic (Comfort Ez Pen Hughson) 31 gauge x 5/16 needle Start: 12-23-2017 End: 12-23-2017 Blood Sugar Diagnostic (Freestyle Lite Strips) strip Start: 12-23-2017 End: 12-23-2017 Pen Needle, Diabetic (Comfort Ez Pen Hughson) 31 gauge x 5/16 needle Start: 12-22-2017 End: 12-23-2017 Pen Needle, Diabetic (Comfort Ez Pen Hughson) 31 gauge x 5/16 needle Start: 12-23-2017 End: 12-23-2017 Blood Sugar Diagnostic (Freestyle Lite Strips) strip Start: 12-23-2017 End: 12-23-2017 Pen Needle, Diabetic (Comfort Ez Pen Hughson) 31 gauge x 5/16 needle Start: 12-22-2017 End: 12-23-2017 Pen Needle, Diabetic (Comfort Ez Pen Hughson) 31 gauge x 5/16 needle Start: 12-23-2017 End: 12-23-2017 Blood Sugar Diagnostic (Freestyle Lite Strips) strip Start: 12-23-2017 End: 12-23-2017 Pen Needle, Diabetic (Comfort Ez Pen Hughson) 31 gauge x 5/16 needle Start: 12-22-2017 End: 12-23-2017 Pen Needle, Diabetic (Comfort Ez Pen Hughson) 31 gauge x 5/16 needle Start: 12-23-2017 End: 12-23-2017 Insulin Syringe-Needle U-100 [Insulin Syringe-Needle U-100 0.5 Ml 31 Gauge X 5/16] (Insulin Syringe-Needle U-100 0.5 Ml 31 Gauge X ) 0.5 mL 31 gauge x 5/16 syringe Start: 10-19-2024 Blood Sugar Diagnostic (Freestyle Lite Strips) strip Start: 12-23-2017 End: 12-23-2017 Pen Needle, Diabetic (Comfort Ez Pen Hughson) 31 gauge x 5/16 needle Start: 12-22-2017 End: 12-23-2017 Pen Needle, Diabetic (Comfort Ez Pen Hughson) 31 gauge x 5/16 needle Start: 12-23-2017 End: 12-23-2017 Insulin Syringe-Needle U-100 [Insulin Syringe-Needle U-100 0.5 Ml 31 Gauge X 5/16] (Insulin Syringe-Needle U-100 0.5 Ml 31 Gauge X ) 0.5 mL 31 gauge x 5/16 syringe Start: 10-19-2024 Blood Sugar Diagnostic (Freestyle Lite Strips) strip Start: 12-23-2017 End: 12-23-2017 Pen Needle, Diabetic (Comfort Ez Pen Hughson) 31 gauge x 5/16 needle Start: 12-22-2017 End: 12-23-2017 Pen Needle, Diabetic (Comfort Ez Pen Hughson) 31 gauge x 5/16 needle Start: 12-23-2017 End: 12-23-2017 Insulin Syringe-Needle U-100 (Trueplus Insulin) 0.5 mL 31 gauge x 5/16 syringe Start: 10-19-2024 Blood Sugar Diagnostic (Freestyle Lite Strips) strip Start: 12-23-2017 End: 12-23-2017 Pen Needle, Diabetic (Comfort Ez Pen Hughson) 31 gauge x 5/16 needle Start: 12-22-2017 End: 12-23-2017 Pen Needle, Diabetic (Comfort Ez Pen Hughson) 31 gauge x 5/16 needle Start: 12-23-2017 End: 12-23-2017 Insulin Syringe-Needle U-100 (Trueplus Insulin) 0.5 mL 31 gauge x 5/16 syringe Start: 10-19-2024 Blood Sugar Diagnostic (Freestyle Lite Strips) strip Start: 12-23-2017 End: 12-23-2017 Pen Needle, Diabetic (Comfort Ez Pen Hughson) 31 gauge x 5/16 needle Start: 12-22-2017 End: 12-23-2017 Pen Needle, Diabetic (Comfort Ez Pen Hughson) 31 gauge x 5/16 needle Start: 12-23-2017 End: 12-23-2017 Insulin Syringe-Needle U-100 (Trueplus Insulin) 0.5 mL 31 gauge x 5/16 syringe Start: 10-19-2024 Blood Sugar Diagnostic (Freestyle Lite Strips) strip Start: 12-23-2017 End: 12-23-2017 Pen Needle, Diabetic (Comfort Ez Pen Hughson) 31 gauge x 5/16 needle Start: 12-22-2017 End: 12-23-2017 Pen Needle, Diabetic (Comfort Ez Pen Hughson) 31 gauge x 5/16 needle Start: 12-23-2017 End: 12-23-2017 Insulin Syringe-Needle U-100 (Trueplus Insulin) 0.5 mL 31 gauge x 5/16 syringe Start: 10-19-2024 Blood Sugar Diagnostic (Freestyle Lite Strips) strip Start: 12-23-2017 End: 12-23-2017 Pen Needle, Diabetic (Comfort Ez Pen Hughson) 31 gauge x 5/16 needle Start: 12-22-2017 End: 12-23-2017 Pen Needle, Diabetic (Comfort Ez Pen Hughson) 31 gauge x 5/16 needle Start: 12-23-2017 End: 12-23-2017 Insulin Syringe-Needle U-100 (Trueplus Insulin) 0.5 mL 31 gauge x 5/16 syringe Start: 10-19-2024 Blood Sugar Diagnostic (Freestyle Lite Strips) strip Start: 12-23-2017 End: 12-23-2017 Pen Needle, Diabetic (Comfort Ez Pen Hughson) 31 gauge x 5/16 needle Start: 12-22-2017 End: 12-23-2017 Pen Needle, Diabetic (Comfort Ez Pen Hughson) 31 gauge x 5/16 needle Start: 12-23-2017 End: 12-23-2017 Insulin Syringe-Needle U-100 (Trueplus Insulin) 0.5 mL 31 gauge x 5/16 syringe Start: 10-19-2024 Blood Sugar Diagnostic (Freestyle Lite Strips) strip Start: 12-23-2017 End: 12-23-2017 Pen Needle, Diabetic (Comfort Ez Pen Hughson) 31 gauge x 5/16 needle Start: 12-22-2017 End: 12-23-2017 Pen Needle, Diabetic (Comfort Ez Pen Hughson) 31 gauge x 5/16 needle Start: 12-23-2017 End: 12-23-2017 Insulin Syringe-Needle U-100 (Trueplus Insulin) 0.5 mL 31 gauge x 5/16 syringe Start: 10-19-2024 Blood Sugar Diagnostic (Freestyle Lite Strips) strip Start: 12-23-2017 End: 12-23-2017 Pen Needle, Diabetic (Comfort Ez Pen Hughson) 31 gauge x 5/16 needle Start: 12-22-2017 End: 12-23-2017 Pen Needle, Diabetic (Comfort Ez Pen Hughson) 31 gauge x 5/16 needle Start: 12-23-2017 End: 12-23-2017 Goals Date Patient Goal Desired Activity /State Functional Status Date Assessment Result Facility 02-28-2025 Functional status Chair [facility] Work Phone: 02-05-2025 Functional status Ambulates;Chair [facility] Work Phone: 08-20-2022 Functional status Up ad abhishek;Bathroom Priv ilege [facility] Work Phone: 03-03-2022 Functional status Ambulates [facility] Work Phone: Mental Status Date Assessment Result Facility 02-28-2025 Cognitive function Voice/Name [facility] Work Phone: 02-27-2025 Cognitive function Voice/Name [facility] Work Phone: 02-05-2025 Cognitive function Level Of Cons ciousness Awake;Alert;Appropriate;Follow s Commands [facility] Work Phone: 01-26-2025 Cognitive function Voice/Name [facility] Work Phone: 10-19-2024 Cognitive function Voice/Name [facility] Work Phone: 01-03-2023 Cognitive function Voice/Name [facility] Work Phone: 12-09-2022 Cognitive function Level Of Cons ciousness Awake;Alert;Appropriate;Follow s Commands [facility] Work Phone: 12-03-2022 Cognitive function Voice/Name [facility] Work Phone: 11-17-2022 Cognitive function Voice/Name [facility] Work Phone: 10-13-2022 Cognitive function Level Of Cons ciousness Awake;Alert;Appropriate;Follow s Commands [facility] Work Phone: 08-20-2022 Cognitive function Voice/Name [facility] Work Phone: 07-07-2022 Cognitive function Level Of Cons ciousness Awake;Alert;Appropriate;Follow s Commands [facility] Work Phone: 06-30-2022 Cognitive function Voice/Name [facility] Work Phone: 03-03-2022 Cognitive function Voice/Name [facility] Work Phone: 2022 Cognitive function Level Of Cons ciousness Awake;Drowsy;Inappropriate [facility] Work Phone: Clinical Notes 05-29-2010 to 04-21-2025 Note Date & Type Note Facility 04-21-2025 Discharge summary [facility] 04-21-2025 Radiology Diagnostic study note [facility] Imaging Services [address] [place] [address] Shoulder min 2 Views MR#: [id number] Acct: [id number] Name: UNA COSBY Rep #: [id number] : 1995 M 30 From: Selene Kimble MD PCP: Care Physician,No Primary Status: PRE ER Study:Shoulder min 2 Views Date of Exam: 04/21/25 Exam# [id number] Ordering Dr: Dhiraj Boswell MD PROCEDURE: SHOULDER MIN 2 VIEWS; CLAVICLE N/A REASON FOR EXAM: INJURY; INJURY LEFT Clavicle and shoulder pain. TECHNIQUE: Procedure Code: RADSH; RADCL Modality: DX Procedure: SHOULDER MIN 2 VIEWS; CLAVICLE Laterality: Left COMPARISON: None FINDINGS: Four views of the left shoulder. Two views of the left clavicle. Bones: Negative for fractures. Scapula negative. Proximal humerus negative. Clavicle negative. Joints: Slight degenerative changes in the AC joint. Intact. No joint effusion. Soft tissues: Adjacent structures negative. Other: Remainder of the exam negative. RAD/Shoulder min 2 Views IMPRESSION: Negative for acute abnormality of the left shoulder or left clavicle. Reading Location: [id number] CC: Dr. Arik Boswell MD; No Primary Care Physician ~ Insulator Cutter And Former: Signed [facility] 04-21-2025 Radiology Diagnostic study note [facility] Imaging Services [address] [place] [id number] Clavicle MR#: [id number] Acct: [id number] Name: UNA COSBY Rep #: [id number] : 1995 30 From: Selene Kimble MD PCP: Care Physician,No Primary Status: PRE ER Study:Clavicle Date of Exam: 04/21/25 Exam# [id number] Ordering Dr: Dhiraj Boswell MD PROCEDURE: SHOULDER MIN 2 VIEWS; CLAVICLE N/A REASON FOR EXAM: INJURY; INJURY LEFT Clavicle and shoulder pain. TECHNIQUE: Procedure Code: RADSH; RADCL Modality: DX Procedure: SHOULDER MIN 2 VIEWS; CLAVICLE Laterality: Left COMPARISON: None FINDINGS: Four views of the left shoulder. Two views of the left clavicle. Bones: Negative for fractures. Scapula negative. Proximal humerus negative. Clavicle negative. Joints: Slight degenerative changes in the AC joint. Intact. No joint effusion. Soft tissues: Adjacent structures negative. Other: Remainder of the exam negative. RAD/Clavicle IMPRESSION: Negative for acute abnormality of the left shoulder or left clavicle. Reading Location: [id number] CC: Dr. Arik Boswell MD; No Primary Care Physician ~ Insulator Cutter And Former: Signed [facility] 04-21-2025 Discharge summary Note Date/Time April 21, 2025 2:17pm [facility] Medical Records Department [address] [place] [address] Emergency Department Summary 04/21/25 MR#: [id number] Acct: [id number] Name: UNA COSBY Rep #:[id number] : 1995 30 From: Arik Boswell MD PCP: Care Physician,No Primary Status :PRE ER Location: ED HPI History of Present Illness Chief Complaint: Upper Extremity Injury Detail of Chief Complaint: Left shoulder pain Informant: patient Occured/Mechanism Comment: There is no history of direct trauma. Onset/Context/Timing Onset: Weeks Context: Sudden Onset Timing: Continuous and Waxes and wanes Current Severity: Mild Maximum Severity: Moderate Worsened by: Certain movements Relieved by: Nothing Associated Symptoms Associated Symptoms: Negative for Parasthesia, Weakness or Loss of Funtion Narrative Narrative: Patient is a 30-year-old tudji-cuon-ecuomlse male with type 1 diabetes. He has no history of kidney disease. He states his prescription for NSAID has no refills. He took one of his dad's ibuprofen tablets. He denies fever, chills night sweats. He denies paresthesia, anesthesia or motor weakness. He denies cardiac or respiratory symptoms. There is no history of direct trauma. He has no history of peptic ulcer disease, or known kidney disease. He does have diabetes. Prior similar symptoms: No Recent Illness/Hospitalization: No PFSH PFSH Medical History Anxiety Depression Smoker Asthma Hypertension Chronic anemia Learning difficulty due to cognitive limitations Noncompliance with medication regimen H/O fracture of skull Anxiety and depression Type I diabetes mellitus, uncontrolled Tobacco use Home Medications ?Medication ?Instructions ?Recorded ?Last Taken ?Type insulin lispro 100 unit/mL See Rx Instructions SQ TIDC M short 03/05/21 03/04/21 History subcutaneous pen acting insulin insulin glargine 100 unit/mL (3 30 unit subcut QPM linda betes 08/18/22 Unknown History mL) subcutaneous pen (Lantus Solostar U-100 Insulin) insulin syringe-needle U-100 0.5 10/19/24 Unknown His tory mL 31 gauge x 5/16 (TRUEplus Insulin) ondansetron 8 mg disintegrating 8 mg PO Q8H PRN nausea and 12/14/24 Unknown Rx tablet vomiting #12 tabs hydrocodone-acetaminophen 5-325mg 1 tab PO Q6H PRN PRN Pain 2 days 04/21/25 Unknown Rx 5mg-325mg #6 TABLETS naproxen 500 mg tablet 500 mg PO BID #14 tabs 04/21 Unknown Rx Allergy/AdvReac Type Severity Reaction Status Date / Time No Known Allergies Allergy Verified 04/21/25 13:31 Family History Father Diabetes Mother , Age [...] or sweats Cardiovascular Cardiovascular: Denies chest pain or palpitations Respiratory/Chest Respiratory/Chest: Denies cough, dyspnea or dyspnea on exertion Gastrointestinal Gastrointestinal: Denies melena Musculoskeletal Musculoskeletal: Reports other Details: Left shoulder pain/left clavicle pain. ; Denies back pain, myalgias or neck pain Integumentary Denies rash Neurologic Neurologic: Denies paresthesias or weakness Hematologic/Lymphatic Hematologic/Lymphatic: Denies easy bleeding or easy bruising EXAM Physical Exam Const Vital Signs: 04/21/25 13:29 Temperature 98.3 F Temperature Source Oral Pulse Rate 80 Respiratory Rate 16 Blood Pressure 120/70 Blood Pressure Mean 86 Pulse Ox 98 Oxygen Delivery Method Room Air Positive well nourished, well developed and unkempt General Appearance ED: unkempt, well developed and NAD HEENT Reports moist mucous membranes normocephalic and atraumatic Eyes PERRL and EOMs intact bilaterally Resp normal respiratory effort Cardio regular rate and regular rhythm Extremity normal to inspection; Negative for full ROM Extremity Narrative: Axillary, median, radial and ulnar function intact. There is pain palpation over the AC joint. This is minimal. There is also pain ovation of the bicipital groove. There is increased pain with abduction past 90 degrees. There is no pain palpation over the lateral medial epicondyle, olecranon processor radial head. Radial pulses palpable. There is minimal discomfort posterior left shoulder. There are no dermatologic lesions noted. Neuro oriented x3, CN's II-XII intact bilaterally, moves all extremities, no focal motor deficits and no sensory deficits noted Sensorium / Orientation: alert Motor Exam: strength 5/5 throughout Psych mental status grossly normal Appearance: unkempt Skin General Skin Exam: Negative for petechiae Lesions: no lesions Rashes: no rashes MDM MDM MDM Narrative Medical decision making narrative: Nurse protocol orders were entered. A clavicle and shoulder x-ray was obtained. Differential diagnosis is impingement syndrome, bicipital tendinitis, bursitis,osteoarthritis doubt crystal induced or pyogenic arthritis. Radiography Chest X-Ray - ED: 2 View (2 view x-ray of the left clavicle reveals no abnormality by my independent read at 1406.) and Read by ED Physician (4 view x-ray of the shoulder reveals no fracture, subluxation dislocation. There is no arthritic changes in my opinion. The x-ray appears normal. There is no calcification of the supraspinatus tendon.) Treatment and Re-Evaluation Narrative: Patient has findings suggestive of impingement syndrome and bicipital tendinitis. Treatment is NSAIDs. He received a dose of [place] and Naprosyn in the department. He was discharged with 24-hour supply of opiate analgesia and anti-inflammatory. He is to follow-up with his doctor. Discharge Plan Triage Chief Complaint: Upper Extremity Injury ED Provider: Arik Boswell Dx/Rx/DC Orders Clinical Impression: Biceps tendinitis of left shoulder, Type 1 diabetes, Bursitis of left shoulder Instructions: Biceps Tendonitis Proximal Prescriptions: New hydrocodone-acetaminophen 5-325 mg tablet 1 tab PO Q6H PRN PRN (Reason: Pain) 2 Days Qty: 6 0RF naproxen 500 mg tablet 500 mg PO BID Qty: 14 0RF No Action insulin lispro 100 UNIT/ML insulin pen See Rx Instructions SQ TIDCM Rx Instructions: SLIDING SCALE SQ 3 times daily with meals; +SLIDING SCALE insulin glargine [Lantus Solostar U-100 Insulin] 100 unit/mL (3 mL) insulin pen 30 unit subcut QPM (DME) insulin syringe-needle U-100 [TRUEplus Insulin] 0.5 mL 31 gauge x 5/16 syringe 1 syringe MISCELLANEOUS 4X/DAY ondansetron 8 mg tablet,disintegrating 8 mg PO Q8H PRN (Reason: nausea and vomiting) Qty: 12 0RF Primary Care Provider: Care Physician,No Primary Referrals: Care Physician,No Primary [Primary Care Provider] - Activity Restrictions/Additional Instructions: 1. Recommend contacting your primary care provider. The name of your doctor should be on your insurance card issued to you by [facility]. 2. Avoid pulling anything towards you of any significant weight or limit overhead work. Print Language: Vincentian Disposition Disposition: Home, Self Care What to do if you have Problems For any increased pain, shortness of breath, bleeding, nausea or vomiting, chestpain, or any unexpected problems, contact your Primary Care Provider. Call [facility] ([phone]) or report to the closest Emergency Room. Call 911 if necessary. 04/21/25 1417 <Electronically signed by Arik Boswell MD> Cosigner Signature (if applicable): CC: No Primary Care Physician ~ Signed [facility] Work Phone: 1(649) 620-967407-27-2025 Hospital Discharge instructions Patient Education 03/04/2025 15:31:58 Palpitations Heart Palpitations Palpitations are the feeling that your heart is beating hard, fast, or irregular. Some describe it as pounding or skipped beats. Palpitations may occur in someone with heart disease, but can alsooccur in a healthy person. Heart-related causes: Arrhythmia (a change from the heart's normal rhythm) Heart valve disease Disease of the heart muscle Coronary artery disease High blood pressure Nuu-xlukn-vtagguy causes: Certain medicines such as asthma inhalers [...] Tell your doctor about any prescription or lruc-hei-excqntt or herbal medicines you take. Follow-up care [...] of the following: Weakness Dizziness Lightheadedness Fainting 5372-7766 [employer]. [address] [place] [address]. All rights reserved. This information is not intended as a substitute for professional medical care. Always follow yourhealthcare professional's instructions. Follow Up Care 03/04/2025 14:00:19 With:ROBBI SALAZAR MD Address: [address] [facility] [address] [place] [address]- When:2-4 days With:LAURENT JENKINS APRN-[facility] Address: [address] [place] [address] [address] [place] [address]- [phone] When:2-4 days With:KANIKA KILLIAN MD Address: [address] [facility] [address] [place] [address]- [phone] When:2-4 days [facility] 07-27-2025 Note Discharge Instructions Thank you for allowing [facility] to assist you with your healthcare needs. The following is importantdischarge information regarding your hospital visit. Diagnosis from Today's Visit Palpitations What to Do Next Instructions from Your Care Team No qualifying data available. Post Acute Orders No qualifying data available. You Need to Schedule the Following Appointments Follow Up with ROBBI SALAZAR MD When:Within 2-4 days Where:[address] [place] [address]- Follow Up with LAURENT JENKINS When:Within 2-4 days Where:[address] [facility] [address] [place] [address]- [phone] Follow Up with KANIKA KILLIAN MD When:Within 2-4 days Where:[address] [facility] [address] [place] [address]- [phone] Allergies No Known Medication Allergies Medications Please ask your primary doctor or pharmacist before taking any other medication not listed, including over the counter drugs, herbal medications, vitamins and or supplements as they may interact withyo home medications. Please take this list to [...] in someone with heart disease, but can alsooccur in a healthy person. Heart-related causes: Arrhythmia (a change from the heart's normal rhythm) Heart valve disease Disease of the heart muscle Coronary artery disease High blood pressure Mix-qkpyf-zchnuzp causes: Certain medicines such as asthma inhalers [...] Tell your doctor about any prescription or kvch-sst-omfyqgs or herbal medicines you take. Follow-up care [...] of the following: Weakness Dizziness Lightheadedness Fainting 8875-9258 [employer]. [address] [place] [address], [place] [address]. All rights reserved. This information is not intended as a substitute for professional medical care. Always follow yourhealthcare professional's instructions. Additional Information VACCINATE! IT SAVES LIVES! Members of the community who have not yet received the COVID-19 vaccine and would like to receive it can visit one of [facility] vaccine clinics. There are many vaccine clinic locations within the [facility]. For locations and available times, please visit www.[email or web address].[place].gov/. It is important to note that some COVID mobile vaccine clinics are held outdoors and may be canceled in rainy or stormy conditions. To learn more about pediatric vaccinations (ages 5-11), we invite you to visit the [facility] webpage. https://www.[facility].org/pages/9895-Buboj-Qngijdkzwlp-Uzttxmcfsv-Wqtoh-Avj stions.htmlTo learn more about the COVID-19 vaccine, we invite you to visit the CDC website for a list of frequently asked questions. https://www.cdc.gov/coronavirus/2019-ncov/vaccines/faq.html [facility] Patient Portal Access Instructions: Stay connected with your healthcare team and access your personal medical information anytime with the [facility] Patient Portal. If you would like a full copy of your medical records please contact the [facility] Medical Records Department Wednesday through Wednesday between 8a.m. and 4:30p.m. Please follow the directions below to access the portal: 1.Access the email account you provided upon registration to the hospital.2.Look for an invitation email from [facility].3.Open the email and access the invitation link: Accept Invitation to [employer]4.Fill in the required serna to create your account. Sign into [email or web address] with your username and password that you [...] you will allow to register on the [facility] Patient Portal for access to your information. You can also access the [employer] [employer] Patient Portal on the [employer]. Simply click on Health Records under [employer] and then click on the [employer] logo. HOW TO SAFELY DISPOSE OF PRESCRIPTION MEDICATIONS Please use one of the following methods to safely dispose of your unused medications. 1.Use a drug disposal kit: the drug disposal pouch allows you to safely discard your old and unuseddrugs. Ask your nurse to give you one when you are discharged.2.Visit a local take-back location: Many local pharmacies and police departments have programs that collect old and unwanted prescriptiondrugs. Call your local pharmacy or go to http://[employer].Fashion For Home/0M4Zj1w to find one close to you.3.Make use of household items: Use cat litter or old coffee grounds to dispose medications if other options arenot available. Mix your drugs with these household products, seal them in an airtight container andthrow it into the garbage. Call [facility]: [phone] to be sure your drugs can be [...] drowsiness, such as benzodiazepines, also known as benzos,including diazepam and alprazolam, muscle relaxants or sleep aids. Never sell or share prescriptionopioids. This is illegal. Store opioids in a [...] aware that I should contact my doctor. 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 Signature: Date/Time: Relationship to Patient: Witness Name/Signature: Date/Time: [facility]07-27-2025 Note* Exam Date Time Procedure Performing Provider Status 03/04/25 2:10 PM EKG [ED AO] - CV LIZ ROSE DO; (Verified) ECG Final Report Sinus tachycardia Probable left atrial enlargement ST elev, probable normal early repol pattern Electronic Signature: LIZ ROSE DO 03/04/2025 14:20:27 [facility]07-23-2025 [facility] Medical Records Department [address] [place] [address] [place] [address] Discharge Summary 02/28/25 1051 MR#: [id number] Acct: [id number] Name: UNA COSBY Rep #: [id number] : 1995 29 From: Berny Nelson MD PCP: Care Physician,No Primary Status:DIS IN Location: ICU [id number] Providers Date of Admission: 02/27/25 Primary Care [...] Hospital Course: Per HPI: UNA COSBY, is k65-reru-sfy male history of type 1 diabetes and tobacco use presented to [facility] ED 02/27/2025 with complaints of heart palpitations. [...] % (Auto) 59.1, Lymph % (Auto) 28.6, [place] % (Auto) 7.6, Eos % (Auto) 3.4, Baso % (Auto) 0.8, Absolute Neuts (auto) 5.2, Absolute Lymphs (auto) 2.53, Nucleated RBC % 0, Sodium 129 L, Potassium 5.3 H, Chloride 91 L, Carbon Dioxide 15.6 L, Anion Gap 22 H, BUN 11, Crea (more content not included)...[facility]07-23-2025 Progress note [facility] Medical Records Department [address] [place] [address] Progress Note - Hospitalist 02/27/252146 MR#: [id number] Acct: [id number] Name: UNA COSBY Rep #:[id number] : 1995 29 From: Sarah Oh MD PCP: Care Physician,No Primary Status :ADM IN Location: ICU CVICU20 3-1 Hospitalist Note AG closed x 2, bicarb 25. Will transition off insulin drip to home insulin regimen. Will transitionto ADA diet. If no issues with transition will plan to change level of care to MS status. 02/27/252146 Cosigner Signature (if applicable): CC: ~ Signed [facility]07-23-2025 Discharge summary [facility] Medical Records Department [address] [place] [address] Instructions for Home/Discharge Instructions 02/28/25 0853 MR#: [id number] Acct: [id number] Name: UNA COSBY Rep #:[id number] : 1995 29 From: Berny yeager MD [...] can be placed): Home, Self Care 02/28/25 0856Nicchencho Nelson MD CC: Dr. Marcelina Erickson MD; No Primary Care Physician ~ Signed [facility]07-23-2025 Discharge summary [facility] Medical Records Department [address] [place] [address] Emergency Department Summary 02/27/25 MR#: [id number] Acct: [id number] Name: UNA COSBY Rep #:[id number] : 1995 29 From: Arik Boswell MD [...] % (Auto) 59.1 Lymph % (Auto) 28.6 [place] % (Auto) 7.6 Eos % (Auto) 3.4 [...] concern for hyperkalemia. Hispotassium is only 5.3. ME interval is 156 ms. QRS duration 82 ms. QT xkuskwuh908 ms. [place] is normal.) Critical Care Time Critical Care Time: Yes Critical care time (excluding procedures): 30-74 minutes (31), Including time spent: (History, physical, documentation, interventional titration laboratory results, EKG and treatment for DKA.), Discussing w/Patient &/or Family/Bird Sitter, Discussing w/Consultants and Arranging Admission or Transfer [...] Primary [Primary Care Provider] - Print Language: Vincentian Disposition Disposition: Acute Care Hospital [facility] What to do if you have Problems For any increased pain, shortness of breath, bleeding, nausea or vomiting, chestpain, or any unexpected problems, contact your Primary Care Provider. Call [facility] ([phone]) or report tothe closest Emergency Room. Call 911 if necessary. 02/28/25 3272 Cosigner Signature (if applicable): CC: No Primary Care Physician ~ Signed [facility]07-22-2025 Progress note Author Sarah Oh [facility] Note Date/Time February 28, 2025 9:47 am [facility] Medical Records Department [address] [place] [address] Progress Note - Hospitalist 02/27/252146 MR#: [id number] Acct: [id number] Name: UNA COSBY Rep #:[id number] : 1995 29 From: Sarah Oh MD [...] Cosigner Signature (if applicable): CC: ~ Signed [facility] Work Phone: 1(486) 255-264007-22-2025 History and physical note Author Marcelina Erickson [facility] Note Date/Time February 27, 2025 3:01 pm [facility] Medical Records Department [address] [place] [address] H&P Exam - Hospitalist 02/27/25 1452 MR#: [id number] Acct: [id number] Name: UNA COSBY Rep #:[id number] : 1995 29 From: Marcelina Erickson MD PCP: Care Physician,No Primary Status :ADM IN Location: ICU CVICU20 3-1 HPI - General General Date of Admission: 02/27/25 Date of Service: 02/27/25 Chief Complaint: Heart palpitations HPI Narrative UNA COSBY, is v36-jaii-psh male history of type 1 diabetes and tobacco usepresented to [facility] ED 02/27/2025 with complaints of heart palpitations. [...] at bedtime. Per patient he reports compliance [facility] Medical History Noncompliance with medication regimen Anxiety [...] Neut % (Auto) 59.1, Lymph % (Auto) 28.6,[place] % (Auto) 7.6, Eos % (Auto) 3.4, [...] Clarity Clear, Urine pH 6.0, Ur Specific [place] 1.010, Urine Protein 15 H, Urine Glucose [...] if patient does not already have an animal laboratory technician would benefit from establishingcare with 1 # [...] Erickson MD Charges/Coding Visit Charges Inpatient E&M: 49693 Init Hosp L2 02/27/25 1501 <Electronically signed by Marcelina Erickson MD> Cosigner Signature (if applicable): CC: Dr. Marcelina Erickson MD; No Primary Care Physician~ Signed [facility] Work Phone: 1(853) 730-718607-22-2025 History and physical note [facility] Medical Records Department [address] [place] [address] H&P Exam - Hospitalist 02/27/25 1452 MR#: [id number] Acct: [id number] Name: UNA COSBY Rep #:[id number] : 1995 29 From: Marcelina Erickson MD PCP: Care Physician,No Primary Status :ADM IN Location: ICU CVICU20 3-1 HPI - General General Date of Admission: 02/27/25 Date of Service: 02/27/25 Chief Complaint: Heart palpitations HPI Narrative UNA COSBY, is g72-tghy-eiq male history of type 1 diabetes and tobacco usepresented to [facility] ED 02/27/2025 with complaints of heart palpitations. [...] at bedtime. Per patient he reports compliance [facility] Medical History Noncompliance with medication regimen Anxiety [...] unit/mL (3 30 unit subcut QPM linda olena 08/18/22 Unknown History mL) subcutaneous pen (Lantus [...] Neut % (Auto) 59.1, Lymph % (Auto) 28.6,[place] % (Auto) 7.6, Eos % (Auto) 3.4, [...] Clarity Clear, Urine pH 6.0, Ur Specific [place] 1.010, Urine Protein 15 H, Urine Glucose [...] if patient does not already have an animal laboratory technician would benefit from establishingcare with 1 # [...] Erickson MD Charges/Coding Visit Charges Inpatient E&M: 71345 Init Hosp L2 02/27/25 1501 Cosigner Signature (if applicable): CC: Dr. Marcelina Erickson MD; No Primary Care Physician~ Signed [facility]07-22-2025 Discharge summary Author Arik Boswell [facility] Note Date/Time February 28, 2025 8:[address] [facility] Medical Records Department [address] [facility] [place] [address] Emergency Department Summary 02/27/25 MR#: [id number] Acct: [id number] Name: UNA COSBY Rep #:[id number] : 1995 29 From: Arik Boswell MD [...] % (Auto) 59.1 Lymph % (Auto) 28.6 [place] % (Auto) 7.6 Eos % (Auto) 3.4 [...] concern for hyperkalemia. Hispotassium is only 5.3. ME interval is 156 ms. QRS duration 82 ms. QT iyhcijza521 ms. [place] is normal.) Critical Care Time Critical Care Time: Yes Critical care time (excluding procedures): 30-74 minutes (31), Including time spent: (History, physical, documentation, interventional titration laboratory results, EKG and treatment for DKA.), Discussing w/Patient &/or Family/Bird Sitter, Discussing w/Consultants and Arranging Admission or Transfer [...] Primary [Primary Care Provider] - Print Language: Vincentian Disposition Disposition: Acute Care Hospital [facility] What to do if you have Problems For any increased pain, shortness of breath, bleeding, nausea or vomiting, chestpain, or any unexpected problems, contact your Primary Care Provider. Call [facility] ([phone]) or report to the closest Emergency Room. Call 911 if necessary. 02/28/25818 <Electronically signed by Arik Boswell MD> Cosigner Signature (if applicable): CC: No Primary Care Physician ~ Signed [facility] Work Phone: 1(825) 117-815206-30-2025 Discharge summary [facility] Medical Records Department [address] [place] [address] Discharge Summary 02/05/25 1642 MR#: [id number] Acct: [id number] Name: UNA COSBY Rep #:[id number] : 1995 29 From: Alo Lombardo PCP: [...] % (Auto) 55.6, Lymph % (Auto) 31.1, [place] % (Auto) 9.0, Eos % (Auto) 3.4, [...] Clarity Clear, Urine pH 6.0, Ur Specific [place] 1.010, Urine Protein 30 H, Urine Glucose [...] % (Auto) 52.3, Lymph % (Auto) 34.1, [place] % (Auto) 8.5, Eos % (Auto) 4.2, [...] Medical Advice Charges/Coding Visit Charges Inpatient E&M: 94224 Disch Hosp >30min 02/05/25 1645 Cosigner Signature (if applicable): CC: Dr. Alo Zambrano MD; No Primary Care Physician~ Signed [facility]06-30-2025 [facility] Medical Records Department [address] [place] [address] Discharge Summary 02/05/25 1642 MR#: [id number] Acct: [id number] Name: UNA COSBY Rep #: [id number] : 1995 29 From: Alo Zambrano MD PCP: Care Physician,No Primary Status:ADM IN Location: ICU [id number] Providers Date of Admission: 02/05/25 Date of [...] % (Auto) 55.6, Lymph % (Auto) 31.1, [place] % (Auto) 9.0, Eos % (Auto) 3.4, [...] Clarity Clear, Urine pH 6.0, Ur Specific [place] 1.010, U rine Protein 30 H, Urine [...] % (Auto) 52.3, Lymph % (Auto) 34.1, [place] % (Auto) 8.5, Eos % (Auto) 4.2, Baso % (Auto) 0.6, Absolute Neuts (auto) 6.8, Abs (more content not included)...[facility]06-30-2025 Hospital Discharge instructionsAdditional Instructions [facility]: [facility] Phone: 1(753) 564-820106-30-2025 Progress note Author Alo Zambrano [facility] Note Date/Time February 05, 2025 7:49 [facility] Medical Records Department [address] [place] [address] Progress Note - Hospitalist 02/05/25 0743 MR#: [id number] Acct: [id number] Name: UNA COSBY Rep #:[id number] : 1995 29 From: Alo Lombardo PCP: Care Physician,No Primary Status :ADM IN Location: ICU CVICU20 2-1 Hospitalist Note 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 He said he has [...] Glucose has decreased to 181 in Accu-Chek. [facility] glucose 248. Continue insulin drip for 02/05/25 0749 <Electronically signed by Alo Zambrano MD> Cosigner Signature (if applicable): CC: ~ Signed [facility] Work Phone: 1(999) 112-764606-30-2025 Discharge summary Author Babita Rivera [facility] Note Date/Time February 05, 2025 7:00 [facility] Medical Records Department [address] [facility] [place] [address] Emergency Department Summary 02/05/25 MR#: [id number] Acct: [id number] Name: UNA COSBY Rep #:[id number] : 1995 29 From: Babita Rivera DO [...] denies fevers or chills or sweats. PFSH PFSH Medical History (Updated 02/05/25 @ 03:43 by [...] % (Auto) 55.6 Lymph % (Auto) 31.1 [place] % (Auto) 9.0 Eos % (Auto) 3.4 [...] 30-74 minutes, Including time spent:,Discussing w/Patient &/or Family/Bird Sitter, Discussing w/Consultants, ArrangingAdmission or Transfer, Performing Direct [...] Primary [Primary Care Provider] - Print Language: Vincentian Disposition Disposition: Acute Care Hospital [facility] What to do if you have Problems For any increased pain, shortness of breath, bleeding, nausea or vomiting, chestpain, or any unexpected problems, contact your Primary Care Provider. Call [facility] ([phone]) or report to the closest Emergency Room. Call 911 if necessary. 02/05/25 0700 <Electronically signed by Babita Rivera DO> Cosigner Signature (if applicable): CC: No Primary Care Physician ~ Signed [facility] Work Phone: 1(565) 142-258006-30-2025 Progress note 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 He said he has type 1 diabetes mellitus diagnosed at the age of 15. Denies neuropathy or nephropathy or other retinopathy complications. He was admitted withvomiting [place] started around 6 PM for total of 4 times since then. Admitting glucose in [facility] 736 labs were consistent with DKA. First time gap 23-second 12. IV fluids changed from NS to D5 half NS as serum sodium improved from 128-137. Hyponatremia most likely hypertonic hypovolemic hyponatremia Glucose has decreased to 181 in Accu-Chek. [facility] glucose 248. Continue insulin drip for 02/05/25 0749 Cosigner Signature (if applicable): CC: ~ Signed [facility]06-30-2025 Discharge summary [facility] Medical Records Department [address] [place] [address] Emergency Department Summary 02/05/25 MR#: [id number] Acct: [id number] Name: UAN COSBY Rep #:[id number] : 1995 29 From: Babita Rivera DO [...] He denies fevers or chills or sweats. [facility] Medical History (Updated 02/05/25 @ 03:43 [...] unit/mL (3 30 unit subcut QPM linda olena 08/18/22 Unknown History mL) subcutaneous pen (Lantus [...] % (Auto) 55.6 Lymph % (Auto) 31.1 [place] % (Auto) 9.0 Eos % (Auto) 3.4 [...] 30-74 minutes, Including time spent:,Discussing w/Patient &/or Family/Bird Sitter, Discussing w/Consultants, ArrangingAdmission or Transfer, Performing Direct [...] Primary [Primary Care Provider] - Print Language: Vincentian Disposition Disposition: Acute Care Hospital [facility] What to do if you have Problems For any increased pain, shortness of breath, bleeding, nausea or vomiting, chestpain, or any unexpected problems, contact your Primary Care Provider. Call [facility] ([phone]) or report tothe closest Emergency Room. Call 911 if necessary. 02/05/25 0700 Cosigner Signature (if applicable): CC: No Primary Care Physician ~ Signed [facility]06-30-2025 History and physical note Author Sarah Oh [facility] Note Date/Time February 05, 2025 4:[address] [facility] Medical Records Department [address] [place] [address] H&P Exam - Hospitalist 02/05/25 0343 MR#: [id number] Acct: [id number] Name: UNA COSBY Rep #:[id number] : 1995 29 From: Sarah Oh MD [...] reported, Tobacco use who presents to the [facility] ED on 02/05/2025 with history of onset [...] 1 and initiated on an insulin drip. [facility] Medical History Noncompliance with medication regimen Anxiety [...] % (Auto) 55.6, Lymph % (Auto) 31.1, [place] % (Auto) 9.0, Eos % (Auto) 3.4, [...] reported, Tobacco use who presents to the [facility] ED on 02/05/2025 with history of onset [...] prophylaxis: Lovenox. Charges/Coding Visit Charges Inpatient E&M: 39126 Init Hosp L3 02/05/25 0401 <Electronically signed by Sarah Oh MD> Cosigner Signature (if applicable): CC: Dr. Sarah Oh MD; No Primary Care Physician~ Signed [facility] Work Phone: 1(589) 564-972506-30-2025 Evaluation note* Diagnosis Onset Date Resolution Status Admit Date DKA (diabetic ketoacidosis) acute February 05, 2025 3:44am Hyperglycemia acute February 05, 2025 3:44am Vomiting acute February 05 3:44am [facility] Work Phone: 1(638) 606-877606-30-2025 Evaluation note* Diagnosis Onset Date Resolution Status Admit Date DKA (diabetic ketoacidosis) resolved February 05, 2025 3:44am Hyperglycemia resolved February 05, 2025 3:44am Vomiting resolved February 05 3:44am Acute dehydration acute February 272024 2:52pm Diabetic ketoacidosis associated with type 1 diabetes mellitus acute February 27, 2025 2:52pm [facility] Work Phone: 1(142) 700-103206-30-2025 Evaluation note* Diagnosis Onset Date Resolution Status Admit Date DKA (diabetic ketoacidosis) resolved February 05, 2025 3:44am Hyperglycemia resolved February 05, 2025 3:44am Vomiting resolved February 05 3:44am Acute dehydration resolved February 272024 2:52pm Diabetic ketoacidosis associated with type 1 diabetes mellitus resolved February 27, 2025 2:52pm [facility] Work Phone: 1(525) 608-157606-30-2025 History and physical note [facility] Medical Records Department [address] [place] [address] H&P Exam - Hospitalist 02/05/25 0343 MR#: [id number] Acct: [id number] Name: UNA COSBY Rep #:[id number] : 1995 29 From: Sarah Oh MD [...] reported, Tobacco use who presents to the [facility] ED on 02/05/2025 with history of onset [...] 1 and initiated on an insulin drip. [facility] Medical History Noncompliance with medication regimen Anxiety [...] % (Auto) 55.6, Lymph % (Auto) 31.1, [place] % (Auto) 9.0, Eos % (Auto) 3.4, [...] reported, Tobacco use who presents to the [facility] ED on 02/05/2025 with history of onset [...] prophylaxis: Lovenox. Charges/Coding Visit Charges Inpatient E&M: 96923 Init Hosp L3 02/05/25 0401 Cosigner Signature (if applicable): CC: Dr. Sarah Oh MD; No Primary Care Physician~ Signed [facility]06-20-2025 Radiology Diagnostic study note [facility] Imaging Services [address] [place] [address] Chest PA and Lateral MR#: [id number] Acct: [id number] Name: UNA COSBY Rep #: [id number] : 1995 M 29 From: Roberto Babin MD PCP: Care Physician,No Primary Status: REG ER Study:Chest PA and Lateral Date of Exam: 01/26/25 Exam# [id number] Ordering Dr: Beverly Wharton PROCEDURE: CHEST PA AND LATERAL 01/26/2025 REASON FOR EXAM: CHEST PAIN TECHNIQUE: CHEST PA AND LATERAL COMPARISON: Prior study dated October 19, 2024. FINDINGS: Hardware: EKG electrodes. Heart: Unremarkable Mediastinum: The mediastinal contour is unremarkable. Lungs: The lungs are clear. Bones: The bones are unremarkable. RAD/Chest PA and Lateral IMPRESSION: NO ACUTE FINDINGS. Reading Location: [place] [address] CC: ZAIN Baker; No Primary Care Physician ~ Insulator Cutter And Former: Signed [facility]05-08-2025 Discharge summary [facility] Medical Records Department [address] [place] [address] Emergency Department Summary 12/13/24 MR#: [id number] Acct: [id number] Name: UNA COSBY Rep #:[id number] : 1995 29 From: Juan Rivas MD [...] he cannot keep anything down all day. [facility] Medical History Learning difficulty due to [...] % (Auto) 53.8 Lymph % (Auto) 33.9 [place] % (Auto) 8.1 Eos % (Auto) 3.3 [...] Clarity Clear Urine pH 7.0 Ur Specific [place] 1.005 Urine Protein 30 H Urine Glucose [...] (Auto) Neut % (Auto) Lymph % (Auto) [place] % (Auto) Eos % (Auto) Baso % (Auto) Absolute Neuts (auto) Absolute Lymphs (auto) Nucleated RBC % Sodium 136 Potassium 3.6 Chloride 103 Carbon Dioxide 24.0 Anion Gap 9 BUN 10 Creatinine 0.64 L Estim Creat Clear Calc 126.32 Est GFR (MDRD) Non-Af 133 BUN/Creatinine Ratio 16.2 Glucose 275 H Calcium 7.8 b-Hydroxybutyric mmol/L Urine Color Urine Clarity Urine pH Ur Specific [place] Urine Protein Urine Glucose (UA) Urine Ketones [...] (Auto) Neut % (Auto) Lymph % (Auto) [place] % (Auto) Eos % (Auto) Baso % (Auto) Absolute Neuts (auto) Absolute Lymphs (auto) Nucleated RBC % Sodium Potassium Chloride Carbon Dioxide Anion Gap BUN Creatinine Estim Creat Clear Calc Est GFR (MDRD) Non-Af BUN/Creatinine Ratio Glucose Calcium b-Hydroxybutyric mmol/L Urine Color Urine Clarity Urine pH Ur Specific [place] Urine Protein Urine Glucose (UA) Urine Ketones [...] 1-2 Days if not improving Print Language: Vincentian Disposition Disposition: Home, Self Care What to do if you have Problems For any increased pain, shortness of breath, bleeding, nausea or vomiting, chestpain, or any unexpected problems, contact your Primary Care Provider. Call [facility] ([phone]) or report tothe closest Emergency Room. Call 911 if necessary. 12/14/24 021 Cosigner Signature (if applicable): CC: No Primary Care Physician ~ Signed [facility]05-07-2025 Discharge summary Author Juan Rivas [facility] Note Date/Time December 14, 2024 2:13am [facility] Medical Records Department [address] [place] [address] Emergency Department Summary 12/13/24 MR#: [id number] Acct: [id number] Name: UNA COSBY Rep #:[id number] : 1995 29 From: Juan Rivas MD [...] he cannot keep anything down all day. [facility] Medical History Learning difficulty due to [...] RDW Std Deviation 38.6 RDW Coeff of Alce 15.2 H Plt Count 449 MPV 10.5 Immature Gran % (Auto) 0.300 Neut % (Auto) 53.8 Lymph % (Auto) 33.9 [place] % (Auto) 8.1 Eos % (Auto) 3.3 [...] Clarity Clear Urine pH 7.0 Ur Specific [place] 1.005 Urine Protein 30 H Urine Glucose [...] (Auto) Neut % (Auto) Lymph % (Auto) [place] % (Auto) Eos % (Auto) Baso % (Auto) Absolute Neuts (auto) Absolute Lymphs (auto) Nucleated RBC % Sodium 136 Potassium 3.6 Chloride 103 Carbon Dioxide 24.0 Anion Gap 9 BUN 10 Creatinine 0.64 L Estim Creat Clear Calc 126.32 Est GFR (MDRD) Non-Af 133 BUN/Creatinine Ratio 16.2 Glucose 275 H Calcium 7.8 b-Hydroxybutyric mmol/L Urine Color Urine Clarity Urine pH Ur Specific [place] Urine Protein Urine Glucose (UA) Urine Ketones [...] (Auto) Neut % (Auto) Lymph % (Auto) [place] % (Auto) Eos % (Auto) Baso % (Auto) Absolute Neuts (auto) Absolute Lymphs (auto) Nucleated RBC % Sodium Potassium Chloride Carbon Dioxide Anion Gap BUN Creatinine Estim Creat Clear Calc Est GFR (MDRD) Non-Af BUN/Creatinine Ratio Glucose Calcium b-Hydroxybutyric mmol/L Urine Color Urine Clarity Urine pH Ur Specific [place] Urine Protein Urine Glucose (UA) Urine Ketones [...] 1-2 Days if not improving Print Language: Vincentian Disposition Disposition: Home, Self Care What to do if you have Problems For any increased pain, shortness of breath, bleeding, nausea or vomiting, chestpain, or any unexpected problems, contact your Primary Care Provider. Call [facility] ([phone]) or report to the closest Emergency Room. Call 911 if necessary. 12/14/24 0213 <Electronically signed by Juan Rivas MD> Cosigner Signature (if applicable): CC: No Primary Care Physician ~ Signed [facility] Work Phone: 1(120) 227-170803-13-2025 Discharge summary [facility] Medical Records Department [address] [place] [address] Emergency Department Summary 10/19/24 MR#: [id number] Acct: [id number] Name: UNA COSBY Rep #:[id number] : 1995 29 From: Keisha Maldonado PCP: [...] complaints or concerns reported at this time. [facility] Medical History Learning difficulty due to [...] % (Auto) 63.5 Lymph % (Auto) 27.7 [place] % (Auto) 6.2 Eos % (Auto) 1.5 [...] Clarity Clear Urine pH 6.0 Ur Specific [place] 1.010 Urine Protein 100 H Urine Glucose [...] of acute disease. 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 Call [facility] ([phone]) or report tothe closest Emergency Room. Call 911 if necessary. 10/19/24 0516 Cosigner Signature (if applicable): CC: No Primary Care Physician ~ Signed [facility]03-13-2025 Radiology Diagnostic study note [facility] Imaging Services [address] [place] [address] Chest PA and Lateral MR#: [id number] Acct: [id number] Name: UNA COSBY Rep #: [id number] : 1995 M 29 From: Damian Massey MD PCP: Dr. Deangelo Noel MD Status: ME E ER Study:Chest PA and Lateral Date of Exam: 10/19/24 Exam# [id number] Ordering Dr: Danielle Handy DO PROCEDURE: CHEST PA AND LATERAL REASON FOR EXAM: CHEST PAIN TECHNIQUE: PA and lateral views of the chest. COMPARISON: 02/15/2023 FINDINGS: The lungs are clear. The cardiac and mediastinal contours are within limits. The visualized osseousstructures appear within limits. RAD/Chest PA and Lateral IMPRESSION: No evidence of acute disease. Reading Location: [facility] CC: Dr. Keisha Handy DO; Dr. Deangelo Noel MD ~ Insulator Cutter And Former: Signed [facility]05-28-[address] Zarate [facility] January 04, 2023 12:28am Note Date/Time January 03, 2023 11:04 pm [facility] Medical Records Department [address] [place] [address] Emergency Department Summary 01/03/23 MR#: [id number] Acct: [id number] Name: UNA COSBY Rep #:[id number] : 1995 27 From: Darren Maldonado PCP: [...] 45.8 L Lymph % (Auto) 42.3 H [place] % (Auto) 7.8 Eos % (Auto) 3.2 [...] asinus tachycardia with a rate of 117. ME interval, QRS interval, and QTc intervals were all normal. [place] was normal. There are no acute ST [...] your Primary Care Provider. Call [facility] ([phone]) or report to the closest Emergency Room. Call 911 if necessary. 01/04/23 0028 <Electronically signed by Darren Zarate DO> Cosigner Signature (if applicable): CC: Dr. Deangelo Noel MD ~ Signed [facility] Work Phone: 1(993) 350-705004-27-[address] Calvillo [facility] December 03, 2022 11:22pm Note Date/Time December 03, 2022 9:2 1pm [facility] Medical Records Department [address] [place] [address] Emergency Department Summary 12/03/22 MR#: [id number] Acct: [id number] Name: UNA COSBY Rep #:[id number] : 1995 27 From: Edgar Calvillo DO [...] Denies drug use. No history of DVT/PE. [facility] Medical History Anxiety Depression H/O fracture [...] % (Auto) 62.3 Lymph % (Auto) 26.9 [place] % (Auto) 8.0 Eos % (Auto) 2.0 [...] problems, contact your Primary Care Provider. Call [employer] Registry ([phone]) or report to the closest Emergency Room. Call 911 if necessary. 12/03/222321 <Electronically signed by Edgar Calvillo DO> Cosigner Signature (if applicable): CC: Dr. Deangelo Noel MD ~ Signed [facility] Work Phone: [phone]) 793-178502-27-2023 Miscellaneous Notes* Telephone Encounter - Laurent Sutherland MA - 10/05/2022 10:01 AM EST Patient notified and voiced understanding. Laurent Sutherland MA Letter taken to [facility] records. Laurent Sutherland MA * Telephone Encounter [...] with anyone in family medicine. Phillip Howe APRN.NANA * Telephone Encounter - Julius Luis - 10/03/2022 2:55 PM EST Pt is trying to get a new social security card and must have a letter from a physician. The letter must include -typed on letterhead -must include pt's name -must clearly state that the pt is a pt at the [facility] -letter must be within the last 4 years -letter must be signed and dated by doctor or staff member There is no PCP listed under the pt but has been seen by Dr. Noel's in the past. Please call pt with any information. documented in [facility] encounterL[facility] Miscellaneous Notes* Telephone Encounter - Rajwinder Rosales [...] medicine. Phillip Howe APRN.CNP documented in this encounterLake [facility]01-16-2023 Miscellaneous Notes* Telephone Encounter - Phillip Howe [...] advise. Rajwinder Rosales LPN documented in this encounterLake [facility]12-01-2022 Miscellaneous Notes* Telephone Encounter - Parvin Hannah Ma - 07/09/2022 2:05 PM EST PA received from pharmacy but when accessing it through [facility] state PA not needed. Did verifywith pharmacy medication goes through with no issue an is covered. Parvin Hannah Ma documented in this encounterLake [facility]11-29-2022 History of Present illness Narrative* Phillip Howe APRN.METAL ENGINEERING PROCESS WORKER - 07/07/2022 2:00 PM EST Patient came to appointment today. He was in the [facility] 1 1/2 hours ago with complaints of chest pain, shortness of breath and lungs filling up with fluids. Had been out of his insulin for a few days. He was triaged by a provider in [facility] and sent to the ER. I discussed [...] meals. Give along with SSI coverage Insulin Hughson, Disposable, (BD ULTRAFINE III MINI PEN) 31 gauge x / 100 Each 11 Sig: as directed for insulin injections 3 times a day Insulin Syringe-Needle U-100 (BD INSULIN SYRINGE ULTRAFINE) 0.3 mL 31 gauge x 12/22 100 Each 11 Sig: Use 4 times daily and prn Phillip Howe APRN.ANNA documented in this encounterLake [facility]11-29-2022 History of Present illness Narrative* Isaiah Caldera APRN.CNP - 07/07/2022 12:09 PM EST Patient triaged at [facility]. States has not taken insulin for few days/out of medicine. Reportslungs are filling up with fluid and reports constant chest pain. I will refer to ER. Mildly ill appearing but no distress. documented in this encounterL[facility]11-04-2022 Miscellaneous Notes* Telephone Encounter - Meri Mckinney [...] planned Deangelo Noel MD documented in this encounterLake [facility]11-01-2022 Miscellaneous Notes* Telephone Encounter - Deangelo Noel [...] name and birthdate: Yes [facility] 4:33 PM to report an urgent value for glucose with a result of 555. Dr. Noel was notified of the result at 4:34PM. Marcy Ponce Lpn documented in this encounterLake [facility]11-01-2022 Miscellaneous Notes* Telephone Encounter - Phillip Howe APRN.CNP - 06/09/2022 10:53 AM EDT The following approved medication requests have been transmitted electronically. Requested Prescriptions Pending Prescriptions Disp Refills Insulin Hughson, Disposable, (BD ULTRAFINE III MINI PEN) 31 [...] meals. Give along with SSI coverage Insulin Hughson, Disposable, (BD ULTRAFINE III MINI PEN) 31 [...] advise. Sindy Brar Pss documented in this encounterLake [facility]10-30-2022 Miscellaneous Notes* Telephone Encounter - Radha Hameed APRN.CNP - 06/07/2022 11:09 AM EDT Medications reordered today, needs appointment for further refills. Radha Hameed APRN.CNP documented in this encounterLake [facility]07-27-2022 History of Present illness Narrative* Rajwinder Rosales LPN - 03/04/2022 9:29 AM EDT TRANSITION CARE MANAGEMENT (TCM) INITIAL CONTACT Rehabilitation Teacher Outreach Provider Action/FYI: Unable to reach Pt. mailbox is not set up and and other number not working. Called [facility] Initial contact with patient post discharge, spoke to . Patient identified by name and . TRANSITION CARE MANAGEMENT INITIAL OUTREACH DOCUMENTATION: No flowsheet data found. SUMMARY: -Pt discharged from [facility] on 03/03/22. -Admitted for: High blood [...] records from recent hospitalization: documented in this encounterLake [facility]04-12-2022 History of Present illness Narrative* Sabrina Sousa [...] Care Gap or Scheduling/Wellness visits Payer: Payor: [employer] MEDICAID / Plan: [employer] MEDICAID / Product Type: Medicaid / Care [...] field. Phillip Howe APRN.CNP documented in this encounterLake [facility]11-29-2021 Miscellaneous Notes* Telephone Encounter - Phillip Howe [...] 07/01. Patricia Ordoñez LPN documented in this encounterLake [facility]10-21-2010 History of Past illness Narrative* Problem Noted Date Resolved Date Diabetes mellitus type 1 with ketoacidosis 05/2905/29/2010 documented as of this encounter (statuses as of 11/18/2021) [facility] History of Past illness Narrative* Problem Noted Date Resolved Date Diabetes mellitus type 1 with ketoacidosis 05/2905/29/2010 documented as of this encounter (statuses as of 12/09/2021) [facility] History of Past illness Narrative* Problem Noted Date Resolved Date Diabetes mellitus type 1 with ketoacidosis 05/2905/29/2010 documented as of this encounter (statuses as of 04/06/2022) [facility] History of Past illness Narrative* Problem Noted Date Resolved Date Diabetes mellitus type 1 with ketoacidosis 05/2905/29/2010 documented as of this encounter (statuses as of 06/07/2022) [facility] History of Past illness Narrative* Problem Noted Date Resolved Date Diabetes mellitus type 1 with ketoacidosis 05/2905/29/2010 documented as of this encounter (statuses as of 06/09/2022) [facility] History of Past illness Narrative* Problem Noted Date Resolved Date Diabetes mellitus type 1 with ketoacidosis 05/2905/29/2010 documented as of this encounter (statuses as of 06/09/2022) [facility] History of Past illness Narrative* Problem Noted Date Resolved Date Diabetes mellitus type 1 with ketoacidosis 05/2905/29/2010 documented as of this encounter (statuses as of 06/12/2022) [facility] History of Past illness Narrative* Problem Noted Date Resolved Date Diabetes mellitus type 1 with ketoacidosis 05/2905/29/2010 documented as of this encounter (statuses as of 07/07/2022) [facility] of Past illness Narrative* Problem Noted Date Resolved Date Diabetes mellitus type 1 with ketoacidosis 05/2905/29/2010 documented as of this encounter (statuses as of 07/07/2022) [facility] of Past illness Narrative* Problem Noted Date Resolved Date Diabetes mellitus type 1 with ketoacidosis 05/2905/29/2010 documented as of this encounter (statuses as of 07/09/2022) [facility] of Past illness Narrative* Problem Noted Date Resolved Date Diabetes mellitus type 1 with ketoacidosis 05/2905/29/2010 documented as of this encounter (statuses as of 08/24/2022) [facility] History of Past illness Narrative* Problem Noted Date Resolved Date Diabetes mellitus type 1 with ketoacidosis 05/2905/29/2010 documented as of this encounter (statuses as of 09/25/2022) [facility] History of Past illness Narrative* Problem Noted Date Resolved Date Diabetes mellitus type 1 with ketoacidosis 05/2905/29/2010 documented as of this encounter (statuses as of 10/05/2022) [facility] History of Past illness Narrative* Problem Noted Date Resolved Date Diabetes mellitus type 1 with ketoacidosis 05/2905/29/2010 documented as of this encounter (statuses as of 10/06/2022) [facility]Dis[facility] summary Author Sandy Mcclain [facility] November 17, 2022 2:01am Note Date/Time November 17, 2022 1:1 8am [facility] Medical Records Department [address] [place] [address] Emergency Department Summary 11/17/22 MR#: [id number] Acct: [id number] Name: UNA COSBY Rep #:[id number] : 1995 27 From: Jimmie Palomino MD [...] Patient states he needs to see a machine operator helper. But he has not made any calls tosee them despite referrals. He states his phone only works on [employer]. I have recommended he try to use a phone at work or borrow a friend's phone to make those calls as it is important that he gets in. Patient denies any travel surgery immobilization personal or family history of DVT or PE. [facility] Medical History Anxiety Depression H/O fracture [...] % (Auto) 49.8 Lymph % (Auto) 38.9 [place] % (Auto) 7.7 Eos % (Auto) 2.8 [...] cycle. No acute ST elevation or depression. ME interval, QRS duration and QTc are normal. [...] problems, contact your Primary Care Provider. Call [employer] Registry ([phone]) or report to the closest Emergency Room. [...] applicable): cc: Deangelo Noel MD ~* Signed [facility] Work Phone: Discharge summary Author Keisha Handy [facility] Note Date/Time October 19, 2024 5:[address] [facility] Medical Records Department [address] [place] [address] Emergency Department Summary 10/19/24 MR#: [id number] Acct: [id number] Name: UNA COSBY Rep #:[id number] : 1995 29 From: Keisha Maldonado PCP: [...] complaints or concerns reported at this time. [facility] Medical History Learning difficulty due to [...] % (Auto) 63.5 Lymph % (Auto) 27.7 [place] % (Auto) 6.2 Eos % (Auto) 1.5 [...] Clarity Clear Urine pH 6.0 Ur Specific [place] 1.010 Urine Protein 100 H Urine Glucose [...] of acute disease. 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 Call [facility] ([phone]) or report to the closest Emergency Room. Call 911 if necessary. 10/19/24 0516 <Electronically signed by Keisha Handy DO> Cosigner Signature (if applicable): CC: No Primary Care Physician ~ Signed [facility] Work Phone: Discharge summary Author Alo Zambrano [facility] Note Date/Time February 05, 2025 4:[address] [facility] Medical Records Department [address] [place] [address] Discharge Summary 02/05/25 1642 MR#: [id number] Acct: [id number] Name: UNA COSBY Rep #:[id number] : 1995 29 From: Alo Lombardo PCP: [...] % (Auto) 55.6, Lymph % (Auto) 31.1, [place] % (Auto) 9.0, Eos % (Auto) 3.4, [...] Clarity Clear, Urine pH 6.0, Ur Specific [place] 1.010, Urine Protein 30 H, Urine Glucose [...] % (Auto) 52.3, Lymph % (Auto) 34.1, [place] % (Auto) 8.5, Eos % (Auto) 4.2, [...] Medical Advice Charges/Coding Visit Charges Inpatient E&M: 84922 Disch Hosp >30min 02/05/25 1646 <Electronically signed by Alo Zambrano MD> Cosigner Signature (if applicable): CC: Dr. Alo Zambrano MD; No Primary Care Physician~ Signed [facility] Work Phone: Discharge summary Author Berny Nelson [facility] Note Date/Time February 28, 2025 8:[address] [facility] Medical Records Department [address] [place] [address] Instructions for Home/Discharge Instructions 02/28/25 0853 MR#: [id number] Acct: [id number] Name: UNA COSBY Rep #:[id number] : 1995 29 From: Berny yeager MD [...] MD; No Primary Care Physician ~ Signed [facility] Work Phone: Evaluation + Plan note No data available for this section [facility] Evaluation note* Diagnosis Uncontrolled type 1 diabetes mellitus with hypoglycemia without coma (HCC)- Primary [facility] Diagnosis Uncontrolled type 1 diabetes mellitus with hypoglycemia without coma (HCC) documented in this encounter [facility] noteNo assessment information availableWBrecksville [facility] Work Phone: Evaluation note* Diagnosis Onset Date Resolution Status Acute dehydration acute Acute hyperkalemia acute FRANKLIN (acute kidney injury) ac mi'kmaq DKA, type 1 acute Hyperphosphatemia acute Noncompliance with medication regimen acute Pseudohyponatremia acute [facility] Work Phone: Evaluation note* Diagnosis Uncontrolled type 1 diabetes mellitus with hypoglycemia without coma (HCC) [facility]* Diagnosis Uncontrolled type 1 diabetes mellitus [...] spinal cord injury documented in this encounter [facility] note* Diagnosis Onset Date Resolution Status Noncompliance with medication regimen acute Acute dehydration resolved Acute hyperkalemia resolved FRANKLIN (acute kidney injury) re solved DKA, type 1 resolved Hyperphosphatemia resolved Pseudohyponatremia resolved [facility] Work Phone: Evaluation note* Diagnosis Chest pain, unspecified type- Primary High blood sugar Other abnormal glucose documented in this encounter [facility] note* Diagnosis APPOINTMENT CANCELLED- Primary Uncontrolled type 1 diabetes mellitus with hypoglycemia without coma (HCC) Type I (juvenile type) diabetes mellitus without mention of complication, not stated as uncontrolled (HCC) Type I (juvenile type) diabetes mellitus without mention of complication, not stated as uncontrolled [facility] Diagnosis Onset Date Resolution Status FRANKLIN (acute kidney injury) ac mi'kmaq DKA (diabetic ketoacidoses) acute Hematemesis of unknown cause acute Lactic acidosis acute Noncompliance with medication regimen acute [facility] Work Phone: Evaluation note* Diagnosis Uncontrolled type 1 diabetes mellitus with hypoglycemia without coma (HCC) [facility] Diagnosis Onset Date Resolution Status Noncompliance with medication regimen acute FRANKLIN (acute kidney injury) re solved DKA (diabetic ketoacidoses) resolved Hematemesis of unknown cause resolved Lactic acidosis resolved [facility] Work Phone: Evaluation note* Diagnosis Onset Date Resolution Status Admit Date DKA (diabetic ketoacidosis) acute February 05, 2025 3:44am Hyperglycemia acute February 05, 2025 3:44am Vomiting acute February 05 3:44am [facility] Work Phone: History and physical note Author Sarah Oh [facility] Note Date/Time February 05, 2025 4:[address] [facility] Medical Records Department [address] [place] [address] H&P Exam - Hospitalist 02/05/25 0343 MR#: [id number] Acct: [id number] Name: UNA COSBY Rep #:[id number] : 1995 29 From: Sarah Oh MD [...] reported, Tobacco use who presents to the [facility] ED on 02/05/2025 with history of onset [...] 1 and initiated on an insulin drip. [facility] Medical History Noncompliance with medication regimen Anxiety [...] % (Auto) 55.6, Lymph % (Auto) 31.1, [place] % (Auto) 9.0, Eos % (Auto) 3.4, [...] reported, Tobacco use who presents to the [facility] ED on 02/05/2025 with history of onset [...] prophylaxis: Lovenox. Charges/Coding Visit Charges Inpatient E&M: 79227 Init Hosp L3 02/05/25 0401 <Electronically signed by Sarah Oh MD> Cosigner Signature (if applicable): CC: Dr. Sarah Oh MD; No Primary Care Physician~ Signed [facility] Work Phone: History and physical note Author Marcelina Erickson [facility] Note Date/Time February 27, 2025 3:01 pm [facility] Medical Records Department [address] [place] [address] H&P Exam - Hospitalist 02/27/25 1452 MR#: [id number] Acct: [id number] Name: UNA COSBY Rep #:[id number] : 1995 29 From: Marcelina Erickson MD PCP: Care Physician,No Primary Status :ADM IN Location: ICU CVICU20 3-1 HPI - General General Date of Admission: 02/27/25 Date of Service: 02/27/25 Chief Complaint: Heart palpitations HPI Narrative UNA COSBY, is [id number] male history of type 1 diabetes and tobacco usepresented to [facility] ED 02/27/2025 with complaints of heart palpitations. [...] at bedtime. Per patient he reports compliance [facility] Medical History Noncompliance with medication regimen Anxiety [...] Neut % (Auto) 59.1, Lymph % (Auto) 28.6,[place] % (Auto) 7.6, Eos % (Auto) 3.4, [...] Clarity Clear, Urine pH 6.0, Ur Specific [place] 1.010, Urine Protein 15 H, Urine Glucose [...] if patient does not already have an animal laboratory technician would benefit from establishingcare with 1 # [...] Erickson MD Charges/Coding Visit Charges Inpatient E&M: 66246 Init Hosp L2 02/27/25 1507 <Electronically signed by Marcelina Erickson MD> Cosigner Signature (if applicable): CC: Dr. 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 Your screening labs look normal other than very high glucose over 480. It is important you take your insulin as scheduled and make good food choices for a diabetic diet. Follow-up your primary care doctor.[facility] Work Phone: Hospital Discharge instructionsAdditional Instructions 1. Recommend contacting your primary care provider. The name of your doctor should be on your insurance card issued to you by [facility]. 2. Avoid pulling anything towards you of any significant weight or limit overhead work.[facility] Work Phone: Reason for referral (narrative)No reason for referral information availableWBrecksville [facility] Work Phone: Summary Purpose Family History No Family History Records Found Relationship Condition Age at Onset Recorded Date/T bertin father Diabetes mellitus Unknown Relationship Condition Age at Onset Recorded Date/T bertin father Diabetes mellitus Unknown mother Cardiac disease Unknown Coronary artery disease Unknown Hypertension Unknown Heart failure Unknown Advance Directives No Advanced Directives Records FoundDocuments on File Type Date Recorded 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 Advance Directive(s) 03/23/2018 2:01 PM Advance Directive Response Recorded Date/ Time Advance Directives No October 08 6:31pm Living Will No January 31, 2022 10:37am Power of Service Dog Trainer No January 31 10:37am Advance Directive Response Recorded Date/ Time Advance Directives No October 08 6:31pm Living Will No 2022 10:52am Power of Service Dog Trainer No March 02 10:52am Advance Directive Response Recorded Date/ Time Advance Directives No October 08 6:31pm Living Will No 2022 12:30pm Power of Service Dog Trainer No March 02 12:30pm Advance Directive Response Recorded Date/ Time Advance Directives No October 08 5:31pm Living Will No June 30 10:32pm Power of Service Dog Trainer No June 30, 2022 10:32pm Advance Directive Response Recorded Date/ Time Advance Directives No October 08 5:31pm Living Will No August 18 11:46am Power of Service Dog Trainer No August 18, 2022 11:46am Advance Directive Response Recorded Date/ Time Advance Directives No October 08 5:31pm Living Will No August 24 9:15pm Power of Service Dog Trainer No August 24, 2022 9:15pm Advance Directive Response Recorded Date/ Time Advance Directives No October 08 5:31pm Living Will No October 13, 2022 3:59am Power of Service Dog Trainer No October 13 3:59am Advance Directive Response Recorded Date/ Time Advance Directives No October 08 6:31pm Living Will No October 13, 2022 4:59am Power of Service Dog Trainer No October 13 4:59am Advance Directive Response Recorded Date/ Time Advance Directives No October 08 6:31pm Living Will No November 17, 2022 2:01am Power of Service Dog Trainer No November 17 2:01am Advance Directive Response Recorded Date/ Time Advance Directives No October 08 6:31pm Living Will No December 03, 2022 8:34pm Power of Service Dog Trainer No December 03 8:34pm Advance Directive Response Recorded Date/ Time Advance Directives No October 08 6:31pm Living Will No December 09, 2022 6: 27pm Power of Service Dog Trainer No December 09, 2022 6:27pm Advance Directive Response Recorded Date/ Time Advance Directives No October 08 6:31pm Living Will No January 03, 2023 1 0:21pm Power of Service Dog Trainer No January 03, 2023 10:21pm Advance Directive Response Recorded Date/ Time Living Will No October 19, 2024 12:14am Power of Service Dog Trainer No October 19 12:14am Advance Directives No October 08 6:31pm Advance Directive Response Recorded Date/ Time Living Will No November 11, 2024 5:45pm Do you have a Healthcare Power of Service Dog Trainer? No November 11, 2024 5:45pm Living Will No October 19, 2024 12:14am Do you have a Healthcare Power of Service Dog Trainer? No October 19, 2024 12:14am Advance Directives No October 08 6:31pm Advance Directive Response Recorded Date/ Time Living Will No November 11, 2024 5:45pm Do you have a Healthcare Power of Service Dog Trainer? No November 11, 2024 5:45pm Do you have a Healthcare Power of Service Dog Trainer? No December 12, 2024 1:02pm Living Will No October 19, 2024 12:14am Do you have a Healthcare Power of Service Dog Trainer? No October 19, 2024 12:14am Do you have a Healthcare Power of Service Dog Trainer? No December 13, 2024 9:49pm Advance Directives No October 08 6:31pm Advance Directive Response Recorded Date/ Time Living Will No November 11, 2024 5:45pm Do you have a Healthcare Power of Service Dog Trainer? No November 11, 2024 5:45pm Do you have a Healthcare Power of Service Dog Trainer? No December 12, 2024 1:02pm Do you have a Healthcare Power of Service Dog Trainer? No January 26, 2025 12:12pm Living Will No October 19, 2024 12:14am Do you have a Healthcare Power of Service Dog Trainer? No October 19, 2024 12:14am Do you have a Healthcare Power of Service Dog Trainer? No December 13, 2024 9:49pm Advance Directives No October 08 6:31pm Advance Directive Response Recorded Date/ Time Living Will No November 11, 2024 5:45pm Do you have a Healthcare Power of Service Dog Trainer? No November 11, 2024 5:45pm Do you have a Healthcare Power of Service Dog Trainer? No December 12, 2024 1:02pm Do you have a Healthcare Power of Service Dog Trainer? No January 26, 2025 12:12pm Living Will No October 19, 2024 12:14am Do you have a Healthcare Power of Service Dog Trainer? No October 19, 2024 12:14am Do you have a Healthcare Power of Service Dog Trainer? No December 13, 2024 9:49pm Do you have a Healthcare Power of Service Dog Trainer? No February 05, 2025 2:23am Advance Directives No October 08 6:31pm Advance Directive Response Recorded Date/ Time Living Will No November 11, 2024 5:45pm Do you have a Healthcare Power of Service Dog Trainer? No November 11, 2024 5:45pm Do you have a Healthcare Power of Service Dog Trainer? No December 12, 2024 1:02pm Do you have a Healthcare Power of Service Dog Trainer? No January 26, 2025 12:12pm Living Will No October 19, 2024 12:14am Do you have a Healthcare Power of Service Dog Trainer? No October 19, 2024 12:14am Do you have a Healthcare Power of Service Dog Trainer? No December 13, 2024 9:49pm Do you have a Healthcare Power of Service Dog Trainer? No February 05, 2025 4:26am Advance Directives No October 08 6:31pm Advance Directive Response Recorded Date/ Time Living Will No November 11, 2024 5:45pm Do you have a Healthcare Power of Service Dog Trainer? No November 11, 2024 5:45pm Do you have a Healthcare Power of Service Dog Trainer? No December 12, 2024 1:02pm Do you have a Healthcare Power of Service Dog Trainer? No January 26, 2025 12:12pm Do you have a Healthcare Power of Service Dog Trainer? No December 13, 2024 9:49pm Do you have a Healthcare Power of Service Dog Trainer? No February 05, 2025 4:26am Do you have a Healthcare Power of Service Dog Trainer? No February 27, 2025 12:52pm Advance Directives No October 08 6:31pm Advance Directive Response Recorded Date/ Time Living Will No November 11, 2024 5:45pm Do you have a Healthcare Power of Service Dog Trainer? No November 11, 2024 5:45pm Do you have a Healthcare Power of Service Dog Trainer? No December 12, 2024 1:02pm Do you have a Healthcare Power of Service Dog Trainer? No January 26, 2025 12:12pm Do you have a Healthcare Power of Service Dog Trainer? No December 13, 2024 9:49pm Do you have a Healthcare Power of Service Dog Trainer? No February 05, 2025 4:26am Do you have a Healthcare Power of Service Dog Trainer? No February 27, 2025 3:02pm Advance Directives No October 08 6:31pm Advance Directive Response Recorded Date/ Time Do you have a Healthcare Power of Service Dog Trainer? No January 26, 2025 12:12pm Do you have a Healthcare Power of Service Dog Trainer? No February 05, 2025 4:26am Do you have a Healthcare Power of Service Dog Trainer? No February 27, 2025 3:02pm Do you have a Healthcare Power of Service Dog Trainer? No April 21, 2025 2:01pm Advance Directives No October 08 6:31pm Chief [...] Visit Admit Date DKA (diabetic ketoacidosis) February 05 025 3:44am Hyperglycemia February 05, 2025 3:44 [...] Visit Admit Date DKA (diabetic ketoacidosis) February 05 025 3:44am Hyperglycemia February 05, 2025 3:44 am Vomiting February 05, 2025 3:44 am Acute dehydration February 27, 2025 2:52 pm Diabetic ketoacidosis associated with ty pe 1 diabetes mellitus February 27, 2025 2:52pm Chief Complaint Admit Date PALPITATIONS January 26, 2025 11:2 2am DKA February 05, 2025 3:44 am DKA February 27, 2025 2:52 pm DKA February 28, 2025 10:5 1am UPPER EXTRMITY April 21, 2025 1:28pm Reason for Referral Specialty Diagnoses / Procedures Referred By Contac t Referred To Contact Diagnoses Uncontrolled type 1 diabetes mellitus with hypoglycemia without coma (HCC) Radha Hameed, CONTRACT LOADER.METAL ENGINEERING PROCESS WORKER [id number] [id number] Referral ID Status Reason Start Date Expiration Date Visits Re quested Visits Authorized [id number] Closed 1 1 Additional Source Comments (unrecognized sect ion and content) No Status Records FoundNo Status Records FoundNo Status Records FoundNo Status Records FoundNo Status Records FoundNo Status Records Found INFORMATION SOURCE (unrecogn ized section and content) DATE CREATED AUTHOR 01/25/2018 [facility] DATE CREATED AUTHOR AUTHOR'S ORGANIZ ATION 05/20/2018 [facility] DATE CREATED AUTHOR AUTHOR'S ORGANIZ ATION 05/27/2018 [facility] DATE CREATED AUTHOR AUTHOR'S ORGANIZ ATION 03/28/2025 [facility] DATE CREATED AUTHOR AUTHOR'S ORGANIZ ATION 04/13/[address] [facility] DATE CREATED AUTHOR AUTHOR'S ORGANIZ ATION 04/25/2025 [facility] Source Comments (unrecognize d section and content) In the event this informatio n is protected by the Federal Confidentiality of Alcohol and Drug Abuse Patient Records regulations: The Federal rules restrict any use of the information to criminally investigate or prosecute any alcohol or drug abuse patient.[facility] the event this information is protected by the Federal Confidentiality of Alcohol and Drug Abuse Patient Records regulations: The Federal rules restrict any use of the information to criminally investigate or prosecute any alcohol or drug abuse patient.[facility] the event this information is protected by the Federal Confidentiality of Alcohol and Drug Abuse Patient Records regulations: The Federal rules restrict any use of the information to criminally investigate or prosecute any alcohol or drug abuse patient.[facility] the event this information is protected by the Federal Confidentiality of Alcohol and Drug Abuse Patient Records regulations: The Federal rules restrict any use of the information to criminally investigate or prosecute any alcohol or drug abuse patient.[facility] the event this information is protected by the Federal Confidentiality of Alcohol and Drug Abuse Patient Records regulations: The Federal rules restrict any use of the information to criminally investigate or prosecute any alcohol or drug abuse patient.[facility] the event this information is protected by the Federal Confidentiality of Alcohol and Drug Abuse Patient Records regulations: The Federal rules restrict any use of the information to criminally investigate or prosecute any alcohol or drug abuse patient.[facility] the event this information is protected by the Federal Confidentiality of Alcohol and Drug Abuse Patient Records regulations: The Federal rules restrict any use of the information to criminally investigate or prosecute any alcohol or drug abuse patient.[facility] the event this information is protected by the Federal Confidentiality of Alcohol and Drug Abuse Patient Records regulations: The Federal rules restrict any use of the information to criminally investigate or prosecute any alcohol or drug abuse patient.[facility] the event this information is protected by the Federal Confidentiality of Alcohol and Drug Abuse Patient Records regulations: The Federal rules restrict any use of the information to criminally investigate or prosecute any alcohol or drug abuse patient.[facility] the event this information is protected by the Federal Confidentiality of Alcohol and Drug Abuse Patient Records regulations: The Federal rules restrict any use of the information to criminally investigate or prosecute any alcohol or drug abuse patient.[facility] the event this information is protected by the Federal Confidentiality of Alcohol and Drug Abuse Patient Records regulations: The Federal rules restrict any use of the information to criminally investigate or prosecute any alcohol or drug abuse patient.[facility] the event this information is protected by the Federal Confidentiality of Alcohol and Drug Abuse Patient Records regulations: The Federal rules restrict any use of the information to criminally investigate or prosecute any alcohol or drug abuse patient.[facility] the event this information is protected by the Federal Confidentiality of Alcohol and Drug Abuse Patient Records regulations: The Federal rules restrict any use of the information to criminally investigate or prosecute any alcohol or drug abuse patient.[facility] the event this information is protected by the Federal Confidentiality of Alcohol and Drug Abuse Patient Records regulations: The Federal rules restrict any use of the information to criminally investigate or prosecute any alcohol or drug abuse patient.[facility] Reason for Visit (unrecogniz ed section and [...] Care Teams (unrecognized sec tion and content) Semiautomatic Taper Operator Relationship Specialty Start Date End Date Deangelo Noel MD [address] [place] [address] PCP - General Family Practice 09/30/18 [facility] [address] [place] [address] Pharmacist Pharmacy 07/14/18 Darren Zarate, DO [address] [place] [address] Assistant Press Operator Emergency Medicine 06/04/20 Semiautomatic Taper Operator Relationship Specialty Start Date End Date Deangelo Noel MD [address] [place] [address] PCP - General Family Practice 09/30/18 [facility] [address] [place] [address] Pharmacist Pharmacy 07/14/18 Darren Zarate, DO [address] [place] [address] Assistant Press Operator Emergency Medicine 06/04/20 Semiautomatic Taper Operator Relationship Specialty Start Date End Date Deangelo Noel MD [address] [place] [address] PCP - General Family Practice 09/30/18 [facility] [address] [place] [address] Pharmacist Pharmacy 07/14/18 Darren Zarate DO [address] [place] [address] Assistant Press Operator Emergency Medicine 06/04/20 Semiautomatic Taper Operator Relationship Specialty Start Date End Date Deangelo Noel MD [address] [place] [address] PCP - General Family Medicine 09/30/18 [place], [facility] [address] [place] [address] Pharmacist Pharmacy 07/14/18 Darren Zarate, DO [address] [place] [address] Assistant Press Operator Emergency Medicine 06/04/20 Semiautomatic Taper Operator Relationship Specialty Start Date End Date Deangelo Noel MD [address] [place] [address] PCP - General Family Medicine 09/30/18 [facility] [address] [place] [address] Pharmacist Pharmacy 07/14/18 Darren Zarate, DO [address] [place] [address] Assistant Press Operator Emergency Medicine 06/04/20 Semiautomatic Taper Operator Relationship Specialty Start Date End Date Deangelo Noel MD [address] [place] [address] PCP - General Family Medicine 09/30/18 [place], [facility] [address] [place] [address] Pharmacist Pharmacy 07/14/18 Darren Zarate DO [address] [place] [address] Assistant Press Operator Emergency Medicine 06/04/20 Semiautomatic Taper Operator Relationship Specialty Start Date End Date Deangelo Noel MD [address] [place] [address] PCP - General Family Medicine 09/30/18 [place], [facility] [address] [facility] [address] Pharmacist Pharmacy 07/14/18 Darren Zarate DO [address] [place] [address] Assistant Press Operator Emergency Medicine 06/04/20 Semiautomatic Taper Operator Relationship Specialty Start Date End Date Deangelo Noel MD [address] [place] [address] PCP - General Family Medicine 09/30/18 [place], [facility] [address] [place] [address] Pharmacist Pharmacy 07/14/18 Darren Zarate DO [address] [place] [address] Assistant Press Operator Emergency Medicine 06/04/20 Semiautomatic Taper Operator Relationship Specialty Start Date End Date Deangelo Noel MD [address] [place] [address] PCP - General Family Medicine 09/30/18 [place], [facility] [address] [facility] [address] Pharmacist Pharmacy 07/14/18 Darren Zarate DO [address] [place] [address] Assistant Press Operator Emergency Medicine 06/04/20 Team Status: Active Member [...] Dr. Darren Zarate DO Attending Provider, Emergency Ana Maria stone Active Team Status: Inactive Member Role Status Dates Deangelo Noel MD Primary Care Provider Active Dr. Sandy Mcclain MD Attending Provider, Emergency Provider Active Team Status: Inactive Member Role Status Dates Deangelo Noel MD Primary Care Provider Active Dr. Keisha Handy , DO Emergency Provider Active Dr. Isirdo Cruz MD Admit Provider, Attending Provid er Active Team Status: Inactive Member Role Status Dates Deangelo Noel MD Primary Care Provider Active Dr. Gatito Reed , DO Emergency Provider Active Semiautomatic Taper Operator Relationship Specialty Start Date End Date Phillip Howe, CONTRACT LOADER.METAL ENGINEERING PROCESS WORKER [address] [place] [address] PCP - General Family Medicine 09/22/22 09/22/22 [facility] [address] [place] [address] Pharmacist Pharmacy 07/14/18 Darren Zarate, DO [address] [place] [address] Assistant Press Operator Emergency Medicine 06/04/20 Semiautomatic Taper Operator Relationship Specialty Start Date End Date [facility] [address] [place] [address] Pharmacist Pharmacy 07/14/18 Darren Zarate, DO [address] [place] [address] Assistant Press Operator Emergency Medicine 06/04/20 Semiautomatic Taper Operator Relationship Specialty Start Date End Date [facility] [address] [place] [address] Pharmacist Pharmacy 07/14/18 Darren Zarate DO [address] [place] [address] Assistant Press Operator Emergency Medicine 06/04/20 Team Status: Inactive Member [...] Status: Inactive Member Role Status Dates Dr. eKisha Handy DO Emergency Provider Active Start: October [...] February 27, 2025 End: February 28, 2025 Team Status: Inactive Member Role/Relationship Status [...] February 27, 2025 End: February 28, 2025 Team Status: Active Member Role/Relationship Status Dates No Primary Care Physician Primary Care Provider Active Start: February 28, 2025 Dr. Arik Boswell MD Emergency Provider Active Sta rt: February 28, 2025 Dr. Marcelina Erickson MD Admit Provider Active Star t: February 28, 2025 Dr. Marcelina Erickson MD Other Provider Active Star t: February 28, 2025 Dr. Berny Nelson MD Attending Provider Active Start: February 28, 2025 Dr. Berny Nelson MD Other Provider Active Start: February 28, 2025 Team Status: Inactive Member Role/Relationship Status Dates No Primary Care Physician Primary Care Provider Active Start: April 21, 2025 End: April 21, 2025 Dr. Arik Boswell MD Emergency Provider Active Sta rt: April 21, 2025 End: April 21, 2025 Goals (unrecognized section and content) Goals [...] BE BASED ON THE PRIMARY CLINICAL RECORDS. [facility]. provides no warranty or guarantee of the accuracy or completeness of information in this document.
[2025-05-25] MEDS: 0.9% Normal Saline (1000mL) 1,000 ML 999 ML IV (23:43)
[2025-05-26 00:13] LABS: Hematocrit 38.4 % (40-54); Hemoglobin 12.3 g/dL (13.0-16.5); Immature Granulocytes Count 0.160 X10^3/uL (0.0-0.0); Mean Corp Hgb Conc 32.0 g/dL (32-36); Mean Corpuscular Volume 79.7 fL (80-94); Mean Platelet Vol. 11.1 fl (6.2-12.0); NRBC Flagged by Analyzer 0 % (0-5); Platelet Count 332 K/mm3 (150-450); RBC Distribution Width CV 13.7 % (11.6-14.6); RBC Distribution Width SD 39.9 fl (35.1-43.9); Red Blood Count 4.82 M/mm3 (4.6-6.2); White Blood Count 12.0 K/mm3 (4.4-11.0)
[2025-05-26 00:31] LABS: Magnesium 2.2 mg/dL (1.5-2.2)
[2025-05-26 00:35] VITALS: BP 123/88; PULSE 99; RESP 16; O2SAT 98
[2025-05-26 00:38] LABS: Anion Gap 11 (5-15); BUN 19 mg/dL (4-19); BUN/Creat Ratio 28.5 RATIO (10-20); Calcium,Total 8.8 mg/dL (7.6-11.0); Carbon Dioxide 26.0 mmol/L (21.0-32.0); Chloride 89 mmol/L (98-108); Estimated Creatinine Clearance 153.65 ml/min (50-250); Glucose 653 mg/dL (70-99); Potassium 4.1 mmol/L (3.3-5.1)
[2025-05-26 01:00] VITALS: BP 118/89; PULSE 97; RESP 18; O2SAT 99
[2025-05-26 01:01] LABS: SITE Not entered; VBG BASE EXCESS 5 mmol/L (-1.0-3.5); VBG PO2 36 mmHg (25-40); VBG SO2 72 % (50-70); VBG TCO2 30 mmol/L (23-33)
[2025-05-26] MEDS: 0.9% Normal Saline (1000mL) 1,000 ML 999 ML IV (01:08)
[2025-05-26 01:17] LABS: BETA-HYDROXYBUTYRATE 0.1 mmol/L (0.0-0.3)
--- NOTE | 2025-05-26 01:24 | EDS_ITS ---
HPI History of Present Illness Chief Complaint: Palpitations Informant: patient Narrative Narrative: Patient is a 30-year-old male with past medical history of type 1 diabetes as well as anxiety and depression. He states he was at work this evening when he began to feel like his heart was racing and skipping beats. He states he does not have a known history of cardiac arrhythmia but reports there is a family history of abnormal heart rhythm. Secondary to this he presents to the ER for evaluation. He does state that after arrival to the ER he is now experience bouts of nausea and vomiting. He reports has been no known sick contact. He denies any fevers or chills associated with this. He reports he has been taking his insulin as he is directed. He also states there is no associated excessive stimulant use or illicit drug use as a cause for his palpitation. PFSH PFSH Medical History Marijuana smoker Anxiety Depression Smoker Asthma Hypertension Chronic anemia Learning difficulty due to cognitive limitations Noncompliance with medication regimen H/O fracture of skull Anxiety and depression Type I diabetes mellitus, uncontrolled Tobacco use Home Medications ?Medication ?Instructions ?Recorded ?Last Taken ?Type insulin lispro 100 unit/mL See Rx Instructions SQ TIDC M short 03/05/21 03/04/21 History subcutaneous pen acting insulin insulin glargine 100 unit/mL (3 30 unit subcut QPM linda betes 08/18/22 Unknown History mL) subcutaneous pen (Lantus Solostar U-100 Insulin) insulin syringe-needle U-100 0.5 10/19/24 Unknown His tory mL 31 gauge x 5/16 (TRUEplus Insulin) ondansetron 8 mg disintegrating 8 mg PO Q8H PRN nausea and 12/14/24 Unknown Rx tablet vomiting #12 tabs hydrocodone-acetaminophen 5-325mg 1 tab PO Q6H PRN PRN Pain 2 days 04/21/25 Unknown Rx 5mg-325mg #6 TABLETS naproxen 500 mg tablet 500 mg PO BID #14 tabs 04/21 Unknown Rx ondansetron 4 mg disintegrating 4 mg PO TID PRN nausea and 05/26/25 Unknown Rx tablet vomiting #21 tabs Allergy/AdvReac Type Severity Reaction Status Date / Time No Known Allergies Allergy Verified 05/25/25 22:37 Family History Father Diabetes Mother , Age 26. Heart disease CAD (coronary artery disease) Hypertension Heart failure Surgical History H/O skin graft Social History household members: family Smoking Status: Current some day smoker tobacco type: cigarettes, e-cigarettes and smokeless tobacco Smokeless tobacco user: chewing tobacco second hand exposure: Yes alcohol intake: never substance use type: does not use ROS ROS ED Constitutional Constitutional ED: Denies chills or fever(s) Eyes Eyes: Denies blurry vision or change in vision ENT ENT ED: Denies rhinorrhea or sore throat Cardiovascular Cardiovascular: Reports palpitations and racing heartbeat; Denies chest pain Respiratory/Chest Respiratory/Chest: Denies cough or dyspnea Gastrointestinal Gastrointestinal: Reports nausea and vomiting; Denies abdominal pain or diarrhea Genitourinary Genitourinary ED: Denies dysuria Musculoskeletal Musculoskeletal: Denies myalgias Integumentary Denies rash Neurologic Neurologic: Denies headache(s), paresthesias or weakness Psychiatric Psychiatric: Reports anxiety Hematologic/Lymphatic Hematologic/Lymphatic: Denies easy bleeding or easy bruising EXAM Physical Exam Const Vital Signs: 05/25/25 22:37 05/25/25 23:09 05/26/25 00:35 Temperature 97.8 F Temperature Source Temporal Pulse Rate 102 H 99 Respiratory Rate 16 16 Respiratory Effort Normal Non-Labored Respiratory Pattern Normal Blood Pressure 128/90 H 123/88 H Blood Pressure Mean 102 99 Pulse Ox 99 98 Oxygen Delivery Method Room Air Room Air 05/26/25 01:00 Temperature Temperature Source Pulse Rate 97 Respiratory Rate 18 Respiratory Effort Respiratory Pattern Blood Pressure 118/89 H Blood Pressure Mean 98 Pulse Ox 99 Oxygen Delivery Method Room Air Positive well nourished and well developed General Appearance ED: well developed; Negative for pallor HEENT Reports dry mucous membranes HEENT Narrative: Normocephalic atraumatic No tongue or lip swelling no oral lesions no airway edema or compromise; no secondary findings in the posterior pharynx to suggest infection Mucous membranes are dry and tacky Mouth ED: Yes dry mucous membranes Mouth: dry mucous membranes Eyes PERRL and EOMs intact bilaterally General Eye ED: Negative for scleral icterus Neck supple Neck Narrative: No nuchal rigidity or meningeal signs Chest Wall palpation of chest normal Resp normal respiratory effort and clear to auscultation bilaterally Cardio regular rhythm Rate: tachycardic and other Other Details: Tachycardic rate with regular rhythm Radial and carotid pulses are equal and symmetric No carotid bruit noted GI non-tender, non-distended and no masses GI Narrative: Abdomen is soft nontender nondistended with hyperactive bowel sounds. No voluntary guarding or rigidity or pulsatile mass. Auscultation: hyperactive bowel sounds Palpation: soft Extremity normal to inspection Extremity Narrative: No asymmetric edema no pitting edema negative Homans' sign bilaterally Neuro oriented x3, CN's II-XII intact bilaterally and no sensory deficits noted Sensorium / Orientation: alert Motor Exam: strength 5/5 throughout Psych Mood & Affect: anxious Skin no rashes or lesions noted and No skin turgor normal Skin Narrative: Skin turgor is increased General Skin Exam: Negative for jaundice or pallor MDM MDM MDM Narrative Medical decision making narrative: Patient arrived to the ER tachycardic but otherwise with stable vitals. With his report of palpitations there is concern for cardiac dysrhythmia such as atr ial fibrillation atrial flutter or SVT. Therefore he was placed on the core carrier and an EKG was obtained. EKG displayed sinus tachycardia without ischemic finding. He was kept on the core carrier and there was no dysrhythmia noted. In order to ensure that his palpitations were not secondary to acute blood loss anemia acute kidney injury or clinically significant electrolyte abnormality basic blood work was obtained. As he is a type I diabetic there was also blood work to check for DKA or HHS. Patient's labs showed an elevated blood sugar of 653. However he does not have elevation to his anion gap his bicarbonate value was not low his serum beta hydroxybutyrate is normal and his pH on his VBG is 7.46. This indicates that he is not in DKA. His serum osmolality value was normal at 294 going against HHS. After receiving 2 L of IV fluid he had resolution of his tachycardia his blood pressure remained stable and his blood sugar improved as well. He was given an injection of subcutaneous insulin on a sliding scale secondary to the persistent hyperglycemia. However as he does not have a cardiac dysrhythmia nor is he in DKA or HHS there is no need for further intervention and he is otherwise safe for discharge History & Record Review Discussion w/independent historian: Patient Lab Data Attestation: I reviewed the patient's lab results. Labs: Laboratory Results - last 24 hr 05/25/25 05/26/25 23:43 00:55 WBC 12.0 H RBC 4.82 Hgb 12.3 L Hct 38.4 L MCV 79.7 L MCH 25.5 L MCHC 32.0 RDW Std Deviation 39.9 RDW Coeff of Alec 13.7 Plt Count 332 MPV 11.1 Immature Gran % (Auto) 1.300 H Neut % (Auto) 48.9 Lymph % (Auto) 35.1 [place] % (Auto) 10.3 H Eos % (Auto) 3.8 Baso % (Auto) 0.6 Absolute Neuts (auto) 5.9 Absolute Lymphs (auto) 4.20 Nucleated RBC % 0 Sodium 125 L Potassium 4.1 Chloride 89 L Carbon Dioxide 26.0 Anion Gap 11 BUN 19 Creatinine 0.67 L Estim Creat Clear Calc 153.65 Est GFR (MDRD) Non-Af 130 BUN/Creatinine Ratio 28.5 H Glucose 653 H* Serum Osmolality 294 Calcium 8.8 Magnesium 2.2 b-Hydroxybutyric mmol/L 0.1 TSH 2.600 ABG Data ABG results: ABG 05/26/25 00:57 Specimen Type JAIDEN Sample Site Not entered VBG pH 7.47 H VBG pO2 36 VBG HCO3 29 H VBG Total CO2 30 VBG O2 Sat (Calc) 72 H VBG Base Excess 5 H POC Mix VBG pCO2 Pt Tmp 39.9 L O2 Delivery Device Room Air Discharge Plan Triage Chief Complaint: Palpitations ED Provider: Trent Vega Dx/Rx/DC Orders Clinical Impression: Type 1 diabetes mellitus, Palpitations, Dehydration, Acute hyperglycemia Instructions: Diabetes: Caring for Your Body, ED Dehydration (Adult), ED Heart Palpitations Prescriptions: New ondansetron 4 mg tablet,disintegrating 4 mg PO TID PRN (Reason: nausea and vomiting) Qty: 21 0RF No Action insulin lispro 100 UNIT/ML insulin pen See Rx Instructions SQ TIDCM Rx Instructions: SLIDING SCALE SQ 3 times daily with meals; +SLIDING SCALE insulin glargine [Lantus Solostar U-100 Insulin] 100 unit/mL (3 mL) insulin pen 30 unit subcut QPM (DME) insulin syringe-needle U-100 [TRUEplus Insulin] 0.5 mL 31 gauge x 5/16 syringe 1 syringe MISCELLANEOUS 4X/DAY ondansetron 8 mg tablet,disintegrating 8 mg PO Q8H PRN (Reason: nausea and vomiting) Qty: 12 0RF hydrocodone-acetaminophen 5-325 mg tablet 1 tab PO Q6H PRN PRN (Reason: Pain) 2 Days Qty: 6 0RF naproxen 500 mg tablet 500 mg PO BID Qty: 14 0RF Primary Care Provider: Care Physician,No Primary Referrals: Vick Hicks MD [Med Staff - Active Staff, Family Practice] Care Physician,No Primary [Primary Care Provider, Medical] Activity Restrictions/Additional Instructions: Please continue to take your insulin as directed to control your diabetes. Use the Zofran as prescribed to help with any further bouts of nausea or vomiting. Please keep yourself well-hydrated. Follow-up with Dr. Hicks or your family doctor for repeat evaluation. Discussed with them a Holter monitor to further assess for any type of abnormal cardiac rhythm. Return to the ER should you have any further concerns Print Language: Finnish Disposition Disposition: Home, Self Care
[2025-05-26 01:26] LABS: Osmolality, Serum 294 mOsm/KG (275-295)
[2025-05-26 02:34] VITALS: BP 118/79; PULSE 92; RESP 16; TEMP 36.6; O2SAT 98
== END 2025-05-26 03:01 | disposition home or self-care (01) ==
PROVIDERS: Emergency Provider Emergency Medicine; Visit Provider Emergency Medicine
DX: E10.65 Type 1 diabetes mellitus with hyperglycemia (principal); R00.2 Palpitations; E86.0 Dehydration
CPT/HCPCS: 80048; 82010; 82803; 82962; 83735; 83930; 84443; 85025; 93005; 96361; 96374; 96376; 99283; A4216; J2405

== ENCOUNTER 2025-06-09 18:00 | Inpatient (IN) | payer MEDICAID, SELFPAY ==
[2025-06-09] VITALS (9 sets, daily range): BP systolic 98–142; BP diastolic 54–90; PULSE 91–115; RESP 12–18; TEMP 36.6–37; O2SAT 97–100; BMI 16.7; BMI 16.9
--- NOTE | 2025-06-09 18:19 | EX.ED.DYSGE1 ---
HPI History of Present Illness Chief Complaint: Hyperglycemia Detail of Chief Complaint: Racing heart and elevated blood sugar Informant: patient Narrative Narrative: Patient presents to the emergency department with complaint of racing heart and elevated blood sugar. Patient states that he thinks he knows what happened. He thinks that maybe one of his insulin pens is not working or is bad. He tried to give himself sliding scale insulin before lunch for blood sugar in the 200s. He then subsequently developed some racing heart which has happened in the past. He does have history of anxiety and depression. He is a type I diabetic. EMS was called and when they checked his blood sugar was over 500. He states he had some diarrhea this morning that is now resolved. He had some mild nausea but no vomiting. Denies fever. PFSH PFSH Medical History Chewing tobacco dependence Marijuana smoker Asthma Hypertension Chronic anemia Learning difficulty due to cognitive limitations Noncompliance with medication regimen H/O fracture of skull Anxiety and depression Type I diabetes mellitus, uncontrolled Tobacco use Home Medications ?Medication ?Instructions ?Recorded ?Last Taken ?Type insulin lispro 100 unit/mL See Rx Instructions SQ TIDCM short 03/05/21 03/04/21 History subcutaneous pen acting insulin insulin glargine 100 unit/mL (3 30 unit subcut QPM diabetes 08/18/22 Unknown History mL) subcutaneous pen (Lantus Solostar U-100 Insulin) insulin syringe-needle U-100 0.5 10/19/24 Unknown History mL 31 gauge x /16 (TRUEplus Insulin) hydrocodone-acetaminophen 5-325mg 1 tab PO Q6H PRN PRN Pain 2 days 04/21/25 Unknown Rx 5mg-325mg #6 TABLETS naproxen 500 mg tablet 500 mg PO BID #14 tabs 04/21/25 Unknown Rx metoprolol tartrate 25 mg tablet 25 mg PO BID PRN PRN palpitations 06/09/25 Unknown History Allergy/AdvReac Type Severity Reaction Status Date / Time No Known Allergies Allergy Verified 05/25/25 22:37 Family History Father Diabetes Mother , Age 26. Heart disease CAD (coronary artery disease) Hypertension Heart failure Surgical History H/O skin graft Social History household members: family Smoking Status: Current some day smoker tobacco type: cigarettes, e-cigarettes and smokeless tobacco Smokeless tobacco user: chewing tobacco second hand exposure: Yes alcohol intake: never substance use type: does not use ROS ROS ED Review of Systems ROS Unobtainable: other Constitutional Constitutional ED: Reports lethargy; Denies chills, fever(s), sweats or weight loss Eyes Eyes: Denies blurry vision, change in vision or diplopia ENT ENT ED: Denies rhinorrhea or sore throat Cardiovascular Cardiovascular: Reports racing heartbeat; Denies chest pain or orthopnea Respiratory/Chest Respiratory/Chest: Reports dyspnea and dyspnea on exertion; Denies cough, orthopnea or sputum Gastrointestinal Gastrointestinal: Reports diarrhea and nausea; Denies abdominal pain or vomiting Genitourinary Genitourinary ED: Denies dysuria, hematuria or urinary frequency Musculoskeletal Musculoskeletal: Denies arthralgias, back pain, myalgias or neck pain Integumentary Denies abscess, Abrasions or rash Neurologic Neurologic: Denies headache(s) or weakness Psychiatric Psychiatric: Denies anxiety, depression or suicidal thoughts Endocrine Endocrinology: Denies polydipsia, polyphagia or polyuria Hematologic/Lymphatic Hematologic/Lymphatic: Denies easy bleeding, easy bruising or lymphadenopathy Allergic/Immunologic Allergic/Immunologic ED: Denies mouth swelling, tongue swelling or urticaria EXAM Physical Exam Const Vital Signs: 06/09/25 18:04 06/09/25 18:45 06/09/25 19:01 Temperature 98.6 F Temperature Source Oral Pulse Rate 113 H 115 H Respiratory Rate 18 12 Respiratory Effort Normal Non-Labored Blood Pressure 142/90 H Blood Pressure Mean 107 Pulse Ox 99 98 Oxygen Delivery Method Room Air Room Air Positive well nourished and well developed General Appearance ED: well developed and NAD HEENT Reports TM's clear and moist mucous membranes normocephalic and atraumatic; Negative for trauma or tenderness Tympanic Membrane ED: Yes TM's clear Eyes PERRL and EOMs intact bilaterally General Eye ED: Negative for pale conjunctiva or scleral icterus Neck no lymphadenopathy, supple and no JVD General: Negative for tenderness Chest Wall inspection of chest normal and palpation of chest normal Chest: Negative for tenderness Resp normal respiratory effort and clear to auscultation bilaterally Effort and Inspection: Negative for respiratory distress or pain with movement Auscultation: Negative for rhonchi, wheezes or diminished lung sounds Cardio regular rate, regular rhythm, S1 normal heart sound, S2 normal heart sound and no murmurs Peripheral Pulses: pulses 2+ throughout GI normal to inspection, nondistended, normoactive bowel sounds, soft to palpation, non-tender, non-distended and no masses Back/Spine no CVA tenderness and no thoracic nor lumbar tenderness Extremity normal to inspection General Extremety ED: Negative for edema General Extremity: Negative for edema Neuro oriented x3, CN's II-XII intact bilaterally, no sensory deficits noted and gait normal Sensorium / Orientation: awake, alert, oriented to person, oriented to place and oriented to time Motor Exam: strength 5/5 throughout and strength abnormal Psych mental status grossly normal Skin no rashes or lesions noted and no wounds MDM MDM MDM Narrative Medical decision making narrative: Patient presents with concern of racing heart and then elevated blood sugar. History of type 1 diabetes. He thinks that maybe one of his pens was bad and was not given him the expected insulin. Denies recent illness. IV line established. EKG obtained shows sinus tachycardia with no acute ST segment changes. CBC with differential showed white count 13.4 with hemoglobin 13 and platelet count of 327. Chemistries unremarkable. Glucose was elevated at 531. Beta hydroxybutyrate elevated at 6.2. His anion gap was elevated 22. CO2 was 14.3. Patient in DKA. Was started on an insulin drip. Discussed with hospitalist to evaluate patient for admission Lab Data Attestation: I reviewed the patient's lab results. Labs: Laboratory Results - last 24 hr 06/09/25 18:40 WBC 13.4 H RBC 5.09 Hgb 13.1 Hct 40.8 MCV 80.2 MCH 25.7 L MCHC 32.1 RDW Std Deviation 40.1 RDW Coeff of Alec 13.7 Plt Count 327 MPV 10.9 Immature Gran % (Auto) 0.400 Neut % (Auto) 52.1 Lymph % (Auto) 36.2 [place] % (Auto) 5.9 Eos % (Auto) 4.8 Baso % (Auto) 0.6 Absolute Neuts (auto) 7.0 Absolute Lymphs (auto) 4.85 H Nucleated RBC % 0 Sodium 131 L Potassium 3.9 Chloride 95 L Carbon Dioxide 14.3 L Anion Gap 23 H BUN 20 H Creatinine 0.88 Estim Creat Clear Calc 104.12 Est GFR (MDRD) Non-Af 120 BUN/Creatinine Ratio 22.6 H Glucose 531 H* Calcium 8.8 Total Bilirubin 0.19 AST 19 ALT 89 H Alkaline Phosphatase 143 H Total Protein 6.6 Albumin 3.7 Globulin 2.8 Albumin/Globulin Ratio 1.3 b-Hydroxybutyric mmol/L 6.2 H EKG Initial EKG: Attestation: I personally reviewed and interpreted this EKG as follows: Comments: Sinus tachycardia with ventricular rate of 105 bpm with no acute ST segment changes. Critical Care Time Critical Care Time: Yes Critical care time (excluding procedures): 30-74 minutes, Including time spent:, Discussing w/Patient &/or Family/Ceramic Tile Setter, Discussing w/Consultants, Arranging Admission or Transfer, Performing Direct Patient Care at Bedside and - (30 minutes) Discharge Plan Dx/Rx/DC Orders Clinical Impression: DKA (diabetic ketoacidosis) Disposition Disposition: Acute Care [facility]
[2025-06-09] MEDS: 0.9% Normal Saline (1000mL) 1,000 ML 1000 ML IV (18:41)
[2025-06-09 18:50] LABS: Hematocrit 40.8 % (40-54); Hemoglobin 13.1 g/dL (13.0-16.5); Immature Granulocytes Count 0.050 X10^3/uL (0.0-0.0); Mean Corp Hgb Conc 32.1 g/dL (32-36); Mean Corpuscular Volume 80.2 fL (80-94); Mean Platelet Vol. 10.9 fl (6.2-12.0); NRBC Flagged by Analyzer 0 % (0-5); Platelet Count 327 K/mm3 (150-450); RBC Distribution Width CV 13.7 % (11.6-14.6); RBC Distribution Width SD 40.1 fl (35.1-43.9); Red Blood Count 5.09 M/mm3 (4.6-6.2); White Blood Count 13.4 K/mm3 (4.4-11.0)
[2025-06-09 19:22] LABS: BETA-HYDROXYBUTYRATE 6.2 mmol/L (0.0-0.3)
[2025-06-09 19:25] LABS: AST(SGOT) 19 U/L (<=37); Alanine Aminotransfer ALT/SGPT 89 U/L (<=46); Albumin, Serum 3.7 g/dL (3.5-5.0); Alkaline Phosphatase 143 U/L (40-129); Anion Gap 23 (5-15); BUN 20 mg/dL (4-19); BUN/Creat Ratio 22.6 RATIO (10-20); Calcium,Total 8.8 mg/dL (7.6-11.0); Carbon Dioxide 14.3 mmol/L (21.0-32.0); Chloride 95 mmol/L (98-108); Estimated Creatinine Clearance 104.12 ml/min (50-250); Globulin 2.8 g/dL (2.2-4.2); Glucose 531 mg/dL (70-99); Potassium 3.9 mmol/L (3.3-5.1)
[2025-06-09 19:33] LABS: Color, Urine Straw (Yellow); Glucose, Dipstick 1000 mg/dl (Normal); Leukocyte Esterase-Dipstick Negative /ul (Negative); Mucous, Urine 0 SEEN /hpf (<or=2+); Nitrite-Dipstick Negative (Negative); Occult Blood-Urine 10 /ul (Negative); Protein-Dipstick 30 mg/dl (Negative); Specific Gravity, Urine 1.015 (1.002-1.030); Urine Bilirubin Dipstick Negative (Negative)
--- NOTE | 2025-06-09 19:35 | PCM.HP.STD ---
HPI - General General Date of Admission: 06/09/25 Date of Service: 06/09/25 Chief Complaint: Mild nausea, elevated blood sugars, concern his insulin pen is not working. HPI Narrative The patient is a 29 y/o M w/ PMHx: Chronic microcytic anemia, IDDM, Anxiety and Depression, Asthma, Chronic cognitive impairment with learning debilities chart reported, Tobacco use who presents to the [facility] [place] ED on 06/09/2025 with history of elevated blood sugars with palpitations and racing heart admitting that potentially one of his insulin pens has not been working reporting that he is been attempting to give himself sliding scale since before lunch does not seem to be working with onset of symptoms falling similar to his previous. He checked his blood sugar most recently and it was more than 500 prompting him to call EMS to be cautious. He does report he had a loose stool earlier in the morning with mild nausea but no emesis. He denies any other recent symptoms including no fever or chills or URI type symptoms. Workup in the ED included T98.6, heart rate 113, BP 142/90, respiratory rate 18, 99% on room air, CBC with WC 13.4, Cindy 13.1, platelet 327 with lymphocytosis, CMP with sodium 131, chloride 95, Comvax at 14.3, anion gap 23, BUN/creatinine 20/0.88, GFR 120, ALT 89, alk phos 143, beta hydroxybutyrate acid 6.2, urinalysis pending upon request evaluation of patient. In the ED patient administered 1 L normal saline as well as initiated on an insulin drip. [facility] Medical History Chewing tobacco dependence Marijuana smoker Asthma Hypertension Chronic anemia Learning difficulty due to cognitive limitations Noncompliance with medication regimen H/O fracture of skull Anxiety and depression Type I diabetes mellitus, uncontrolled Tobacco use Home Medications ?Medication ?Instructions ?Recorded ?Last Taken ?Type insulin lispro 100 unit/mL See Rx Instructions SQ TIDCM short 03/05/21 03/04/21 History subcutaneous pen acting insulin insulin glargine 100 unit/mL (3 30 unit subcut QPM diabetes 08/18/22 Unknown History mL) subcutaneous pen (Lantus Solostar U-100 Insulin) insulin syringe-needle U-100 0.5 10/19/24 Unknown History mL 31 gauge x 5/16 (TRUEplus Insulin) hydrocodone-acetaminophen 5-325mg 1 tab PO Q6H PRN PRN Pain 2 days 04/21/25 Unknown Rx 5mg-325mg #6 TABLETS naproxen 500 mg tablet 500 mg PO BID #14 tabs 04/21/25 Unknown Rx metoprolol tartrate 25 mg tablet 25 mg PO BID PRN PRN palpitations 06/09/25 Unknown History Allergy/AdvReac Type Severity Reaction Status Date / Time No Known Allergies Allergy Verified 05/25/25 22:37 Family History Father Diabetes Mother , Age 26. Heart disease CAD (coronary artery disease) Hypertension Heart failure Surgical History H/O skin graft Social History household members: family Smoking Status: Current some day smoker tobacco type: cigarettes, e-cigarettes and smokeless tobacco Smokeless tobacco user: chewing tobacco second hand exposure: Yes alcohol intake: never substance use type: does not use ROS ROS Narrative Admission Review of Systems: CONSTITUTIONAL: No weight loss, fever, chills, + weakness or fatigue. HEENT: Eyes: No visual loss, blurred vision, double vision or yellow sclerae. Ears, Nose, Throat: No hearing loss, sneezing, congestion, runny nose or sore throat. SKIN: No rash or itching, lesions, wounds. CARDIOVASCULAR: + Palpitations/racing heart. No chest pain, chest pressure or chest discomfort, edema, orthopnea, syncopal events. RESPIRATORY: No dyspnea, cough or sputum, wheezing, hemoptysis. GASTROINTESTINAL: + anorexia, nausea, transient now resolved loose stool. No emesis, abdominal pain, melena, BRBPR. GENITOURINARY: No dysuria, frequency, urgency or retention. NEUROLOGICAL: No headache, dizziness, syncope, paralysis, ataxia, numbness or tingling in the extremities, focal weakness, change in bowel or bladder control, seizure. MUSCULOSKELETAL: No muscle, back pain, joint pain or stiffness. HEMATOLOGIC: + Chronic anemia, no easy history of bleeding or bruising. LYMPHATICS: No enlarged nodes. No history of splenectomy. PSYCHIATRIC: + History of anxiety and depression. ENDOCRINOLOGIC: No reports of sweating, cold or heat intolerance. + polyuria or polydipsia. ALLERGIES: + History of asthma. Vital Signs Vital Signs Vital Signs: 06/09/25 18:04 06/09/25 18:45 06/09/25 19:01 Temperature 98.6 F Temperature Source Oral Pulse Rate 113 H 115 H Respiratory Rate 18 12 Respiratory Effort Normal Non-Labored Blood Pressure 142/90 H Blood Pressure Mean 107 Pulse Ox 99 98 Oxygen Delivery Method Room Air Room Air Weight Weight: 129 lb 13.636 oz Body Mass Index (BMI) 16.7 Physical Exam Narrative Physical Examination: General: Awake, alert, oriented x 3 and cooperative, laying in the ED bed, notes feeling improved since initial ED arrival however fatigued and mildly disheveled appearance/unkempt. Skin: Normal color, normal turgor, no icterus, no cyanosis except occasional stage ecchymoses, abrasion. HEENT: AT/NC, EOMI, PERRLA, dry MM, poor oral care, no carotid bruits or JVD noted. Lungs: Mildly diminished, greater bases, mildly increased respiratory rate but no distress, no rales, ronchi or wheezing. Heart: Mildly tachycardic with regular rhythm; no gallop, rub audible. Abdomen: Soft, NTTP, ND, normal BS, no appreciated HSM. Extremities: No cyanosis, no clubbing, no significant pitting edema, status post previous trauma history with evidence of previous grafts. Neurological: Patient awake, alert, oriented as noted, cognitive function intact; pupils equally reactive to light and accommodation, cranial nerves grossly normal, moving all 4 extremities, no focal deficits, strength moderately to severely globally decreased secondary to acute presentation but he notes improving. Psychiatric: Affect appears flat, fatigued, no acute evidence of depressive or anxiety feelings. Results Lab / Micro Data 06/09/25 18:40 06/09/25 18:40 Labs: Laboratory Results - last 24 hr 06/09/25 18:40: WBC 13.4 H, RBC 5.09, Hgb 13.1, Hct 40.8, MCV 80.2, MCH 25.7 L, MCHC 32.1, RDW Std Deviation 40.1, RDW Coeff of Alec 13.7, Plt Count 327, MPV 10.9, Immature Gran % (Auto) 0.400, Neut % (Auto) 52.1, Lymph % (Auto) 36.2, [place] % (Auto) 5.9, Eos % (Auto) 4.8, Baso % (Auto) 0.6, Absolute Neuts (auto) 7.0, Absolute Lymphs (auto) 4.85 H, Nucleated RBC % 0, Sodium 131 L, Potassium 3.9, Chloride 95 L, Carbon Dioxide 14.3 L, Anion Gap 23 H, BUN 20 H, Creatinine 0.88, Estim Creat Clear Calc 104.12, Est GFR (MDRD) Non-Af 120, BUN/Creatinine Ratio 22.6 H, Glucose 531 H*, Calcium 8.8, Total Bilirubin 0.19, AST 19, ALT 89 H, Alkaline Phosphatase 143 H, Total Protein 6.6, Albumin 3.7, Globulin 2.8, Albumin/Globulin Ratio 1.3, b-Hydroxybutyric mmol/L 6.2 H Assessment & Plan Assessment/Plan (1) DM type 1 (diabetes mellitus, type 1): QUALIFIERS: Diabetes mellitus complication detail: with unspecified neuropathy Diabetes mellitus complication status: with neurologic complications Qualified Code(s): E10.40 - Type 1 diabetes mellitus with diabetic neuropathy, unspecified PLAN: Plan The patient is a 29 y/o M w/ PMHx: Chronic microcytic anemia, IDDM, Anxiety and Depression, Asthma, Chronic cognitive impairment with learning debilities chart reported, Tobacco use who presents to the [facility] [place] ED on 06/09/2025 with history of elevated blood sugars with palpitations and racing heart admitting that potentially one of his insulin pens has not been working reporting that he is been attempting to give himself sliding scale since before lunch does not seem to be working with onset of symptoms falling similar to his previous. #1. DKA w/ Diabetes mellitus type I with expected electrolyte disturbances: Will admit to the ICU, will obtain ABG, will continue on insulin drip, check serial K+, glucose w/ IVF changes pending these levels, serial chemistry, obtain mag, phos daily w/ repletion as needed, transition to home SC regimen when gap closed w/ overlap on drip. Will obtain nutrition consultation. Maintain on IV PPI while n.p.o. status. Encouraged diet and insulin regimen compliance. Hemoglobin A1c requested. #2. Anxiety and depression: Per current list not on regimen, clarifying to be certain to make sure nothing has been added since his last admission, encourage continued outpatient follow-up and evaluation especially given #1. #3. Tobacco Abuse: Patient with history of cigarette tobacco, chew tobacco and electronic cigarette usage. Encouraged cessation, inpatient consultation per RT, NR if desired. #4. Chronic microcytic anemia: Admission hemoglobin 13.1, MCV 80.2, baseline hemoglobin primarily 12-13 range, stable, continue to trend. #5. Chronic asthma: Patient is not on chronic inhaler, will have as needed albuterol, encourage head of bed and I-S. #6. DVT prophylaxis: Lovenox. Charges/Coding Visit Charges Inpatient E&M: 88990 Init Hosp L3
[2025-06-09 19:49] LABS: Ketone-Dipstick 150 mg/dl (Negative)
[2025-06-09 19:54] LABS: Squamous Epithelial Cells - UA 0-5 SEEN /hpf (0-5)
[2025-06-09] MEDS: Insulin Lispro 100 UNIT in 0.9% Normal Saline (100mL Bag) 99 ML 6 UNIT CONT INF (20:01)
[2025-06-09 20:08] LABS: Magnesium 1.9 mg/dL (1.5-2.2)
[2025-06-09] MEDS: Dext 5%-0.45% NS 1,000 ML 150 ML IV (23:23)
[2025-06-10] VITALS (17 sets, daily range): BP systolic 94–133; BP diastolic 62–94; PULSE 85–106; RESP 12–25; TEMP 36.4–37.1; O2SAT 93–100; BMI 17.5
[2025-06-10] MEDS: 0.9% Normal Saline (1000mL) 1,000 ML 999 ML IV (00:03)
[2025-06-10] MEDS: Pantoprazole Sodium 40 MG in 0.9% Normal Saline (100mL MB+) 100 ML 330 MG IV ×2 (00:03→10:37)
[2025-06-10 01:17] LABS: Magnesium 1.6 mg/dL (1.5-2.2)
[2025-06-10 01:35] LABS: Anion Gap 9 (5-15); Carbon Dioxide 21.5 mmol/L (21.0-32.0); Chloride 108 mmol/L (98-108); Potassium 3.9 mmol/L (3.3-5.1)
[2025-06-10] MEDS: 0.9% Normal Saline (250mL Bag) 250 ML 15 ML IV (02:19)
[2025-06-10] MEDS: Potassium Chloride 10mEq/100mL 10 MEQ/100 ML IV.SOLN. 100 MEQ IV BOLUS ×3 (02:19→04:35)
[2025-06-10] MEDS: 0.9% Saline Lock 10 ML Syringe IV ×3 (04:51→14:06)
[2025-06-10] MEDS: Dext 5%-0.45% NS 1,000 ML 150 ML IV (05:04)
[2025-06-10 05:34] LABS: Differential Indicated SCAN CRITERIA MET; Hematocrit 34.8 % (40-54); Hemoglobin 11.1 g/dL (13.0-16.5); Immature Granulocytes Count 0.040 X10^3/uL (0.0-0.0); Mean Corp Hgb Conc 31.9 g/dL (32-36); Mean Corpuscular Volume 79.1 fL (80-94); Mean Platelet Vol. 10.6 fl (6.2-12.0); NRBC Flagged by Analyzer 0 % (0-5); POSITIVE DIFFERENTIAL YES; POSITIVE MORPHOLOGY YES; Platelet Count 286 K/mm3 (150-450); RBC Distribution Width CV 13.6 % (11.6-14.6); RBC Distribution Width SD 39.2 fl (35.1-43.9); Red Blood Count 4.40 M/mm3 (4.6-6.2); White Blood Count 10.8 K/mm3 (4.4-11.0)
[2025-06-10 06:02] LABS: Differential Comment SCANNED
[2025-06-10 06:04] LABS: AST(SGOT) 13 U/L (<=37); Alanine Aminotransfer ALT/SGPT 60 U/L (<=46); Albumin, Serum 3.0 g/dL (3.5-5.0); Alkaline Phosphatase 103 U/L (40-129); Anion Gap 9 (5-15); BUN 11 mg/dL (4-19); BUN/Creat Ratio 22.4 RATIO (10-20); Calcium,Total 7.4 mg/dL (7.6-11.0); Carbon Dioxide 21.0 mmol/L (21.0-32.0); Chloride 106 mmol/L (98-108); Estimated Creatinine Clearance 190.51 ml/min (50-250); Globulin 2.0 g/dL (2.2-4.2); Glucose 102 mg/dL (70-99); Potassium 3.9 mmol/L (3.3-5.1)
[2025-06-10 06:38] LABS: Magnesium 1.6 mg/dL (1.5-2.2)
--- NOTE | 2025-06-10 08:14 | PN.HOSP_ITS ---
Reason for Visit
--- NOTE | 2025-06-10 08:14 | PCM.PN.HOSP ---
Reason for Visit Chief Complaint: Mild nausea, elevated blood sugars, concern his insulin pen is not working. Objective Data Objective Data Vital Signs: Vital Signs Temp Pulse Resp BP Pulse Ox O2 Del Method 97.8 F 85 17 115/85 H 100 Room Air 06/10/25 06:00 06/10/25 07:19 06/10/25 07:00 06/10/25 07:00 06/10/25 07:00 06/10/25 07:51 Oxygen Delivery Method Room Air Weight: 60.01 kg Body Mass Index (BMI) 17.5 Intake & Output: Intake and Output for Last 24 Hours 06/08/25 06/09/25 06/10/25 23:59 23:59 22:59 Intake Total 1009.12 / 1009.92 2779.2 / 2779.2 Balance 1009.12 / 1009.92 2779.2 / 2779.2 Lab / Micro Data 06/10/25 05:25 06/10/25 05:25 Labs: Laboratory Results - last 24 hr 06/09/25 18:40: WBC 13.4 H, RBC 5.09, Hgb 13.1, Hct 40.8, MCV 80.2, MCH 25.7 L, MCHC 32.1, RDW Std Deviation 40.1, RDW Coeff of Alec 13.7, Plt Count 327, MPV 10.9, Immature Gran % (Auto) 0.400, Neut % (Auto) 52.1, Lymph % (Auto) 36.2, [place] % (Auto) 5.9, Eos % (Auto) 4.8, Baso % (Auto) 0.6, Absolute Neuts (auto) 7.0, Absolute Lymphs (auto) 4.85 H, Nucleated RBC % 0, Sodium 131 L, Potassium 3.9, Chloride 95 L, Carbon Dioxide 14.3 L, Anion Gap 23 H, BUN 20 H, Creatinine 0.88, Estim Creat Clear Calc 104.12, Est GFR (MDRD) Non-Af 120, BUN/Creatinine Ratio 22.6 H, Glucose 531 H*, Calcium 8.8, Phosphorus 3.2, Magnesium 1.9, Total Bilirubin 0.19, AST 19, ALT 89 H, Alkaline Phosphatase 143 H, Total Protein 6.6, Albumin 3.7, Globulin 2.8, Albumin/Globulin Ratio 1.3, b-Hydroxybutyric mmol/L 6.2 H 06/09/25 19:28: Urine Color Straw, Urine Clarity Clear, Urine pH 6.0, Ur Specific [place] 1.015, Urine Protein 30 H, Urine Glucose (UA) 1000 H, Urine Ketones 150 A*, Urine Occult Blood 10 H, Urine Nitrite Negative, Urine Bilirubin Negative, Urine Urobilinogen Normal, Ur Leukocyte Esterase Negative, Urine RBC Not Reportable, Urine WBC 0-5 SEEN, Ur Squamous Epith Cells 0-5 SEEN, Urine Bacteria 0 SEEN, Urine Mucus 0 SEEN 06/09/25 21:03: POC Glucose 264 H 06/09/25 22:03: POC Glucose 203 H 06/09/25 23:05: POC Glucose 178 H 06/09/25 23:59: POC Glucose 191 H 06/10/25 01:02 EST: POC Glucose 208 H 06/10/25 01:55 EST: Sodium 138, Potassium 3.9, Chloride 108, Carbon Dioxide 21.5, Anion Gap 9, Phosphorus 2.6 L, Magnesium 1.6 06/10/25 01:58 EST: POC Glucose 164 H 06/10/25 02:59: POC Glucose 109 H 06/10/25 03:55: POC Glucose 85 06/10/25 04:56: POC Glucose 85 06/10/25 04:56: POC Glucose 88 06/10/25 05:25: WBC 10.8, RBC 4.40 L, Hgb 11.1 L, Hct 34.8 L, MCV 79.1 L, MCH 25.2 L, MCHC 31.9 L, RDW Std Deviation 39.2, RDW Coeff of Alec 13.6, Plt Count 286, MPV 10.6, Immature Gran % (Auto) 0.400, Neut % (Auto) 34.1 L, Lymph % (Auto) 50.1 H, [place] % (Auto) 8.1, Eos % (Auto) 6.6 H, Baso % (Auto) 0.7, Absolute Neuts (auto) 3.7, Absolute Lymphs (auto) 5.39 H, Nucleated RBC % 0, Differential Comment SCANNED, Sodium 136, Potassium 3.9, Chloride 106, Carbon Dioxide 21.0, Anion Gap 9, BUN 11, Creatinine 0.49 L, Estim Creat Clear Calc 190.51, Est GFR (MDRD) Non-Af 143, BUN/Creatinine Ratio 22.4 H, Glucose 102 H, Hemoglobin A1c 16.0 H, Calcium 7.4 L, Phosphorus 2.6 L, Magnesium 1.6, Total Bilirubin 0.18, AST 13, ALT 60 H, Alkaline Phosphatase 103, Total Protein 5.0 L, Albumin 3.0 L, Globulin 2.0 L, Albumin/Globulin Ratio 1.5 06/10/25 05:59: POC Glucose 100 06/10/25 06:59: POC Glucose 119 H 06/10/25 07:39: POC Glucose 112 H Assessment & Plan Assessment/Plan (1) DM type 1 (diabetes mellitus, type 1): QUALIFIERS: Diabetes mellitus complication status: with neurologic complications Diabetes mellitus complication detail: with unspecified neuropathy Qualified Code(s): E10.40 - Type 1 diabetes mellitus with diabetic neuropathy, unspecified PLAN: Plan # DKA w/ Diabetes mellitus type I -Will admit to the ICU, will obtain ABG, will continue on insulin drip, check serial K+, glucose w/ IVF changes pending these levels, serial chemistry, obtain mag, phos daily w/ repletion as needed, transition to home SC regimen when gap closed w/ overlap on drip. Will obtain nutrition consultation. Maintain on IV PPI while n.p.o. status. Encouraged diet and insulin regimen compliance. Hemoglobin A1c requested. -06/10: A1c found to be 16, query compliance with home regimen. Patient's gap closed x 2 patient off of insulin drip. Given insulin drip requirements patient to be started on 10 units of long-acting insulin 2 units Premeal and sliding scale insulin, can uptitrate if needed #Tobacco use -Advise cessation -Nicotine replacement available if desired -06/10: NicoDerm patch ordered #DVT ppx: Lovenox subcu Marcelina Erickson MD Time spent in the patient's overall evaluation, decision-making process, review of diagnostic data, adjustment of management, discussion with other providers, nursing and ancillary staff involved in patient's care documentation, 36 Minutes Charges/Coding Visit Charges Inpatient E&M: 60046 Subs Hosp L2
[2025-06-10] MEDS: Insulin Glargine-YFGN 100 UNIT/ML Pen 10 UNIT SC (10:33)
[2025-06-10] MEDS: FLU VACCINE 2025-26(6MOS UP) 45 MCG/0.5 ML SYRINGE IM (10:40)
[2025-06-10] MEDS: Nicotine (PBKC) 21 MG Patch TD (10:47)
[2025-06-10 14:47] LABS: Anion Gap 12 (5-15); BUN 10 mg/dL (4-19); BUN/Creat Ratio 18.4 RATIO (10-20); Calcium,Total 8.2 mg/dL (7.6-11.0); Carbon Dioxide 19.2 mmol/L (21.0-32.0); Chloride 100 mmol/L (98-108); Estimated Creatinine Clearance 179.49 ml/min (50-250); Glucose 322 mg/dL (70-99); Potassium 4.7 mmol/L (3.3-5.1)
--- NOTE | 2025-06-10 16:24 | DCINST_ITS ---
Discharge Instructions
--- NOTE | 2025-06-10 16:24 | PCM.DC ---
Discharge Instructions DC O2, CPAP, BIPAP needs Home O2 Discharge instructions: No Dressing / Incision Discharge Activity: Return to Normal Activity Follow Up Care Test Results: Test results from this visit will be discussed in further detail at your follow-up appointment, if applicable. Discharge Plan Admission Admit Date/Time: 06/09/25 19:42 Primary Reason for Your Visit: DKA Attending Provider: Marcelina Erickson Primary Care Provider: Care Physician,No Primary Consulting Providers: Sarah Oh Instructions Patient Instructions: Diabetes Support Additional Instructions / Restrictions: DISCHARGE INSTRUCTIONS PLEASE READ *Please take this with you to your next doctors appointment* - Please resume your home insulin, will be very important that you use this consistently -Would recommend lab work (BMP) to check your kidney function and electrolytes in 2 to 3 days through your primary care physician's office. Please call their office upon discharge to obtain order for lab work. -If you do not already have an latex dipper it would be beneficial for you to establish with one, information to follow-up with Dr. Caldera is included -Please call your primary care provider's office upon discharge to schedule a hospital follow up within 1 week. -If you do not have a primary care physician of list of local primary care physicians can be provided for you upon discharge. Please ask for this list prior to discharge -For any concerning signs or symptoms please call 911 or proceed to the nearest emergency department Discharge Orders/Prescriptions Prescriptions: Continued insulin lispro 100 UNIT/ML insulin pen See Rx Instructions SQ TIDCM Rx Instructions: SLIDING SCALE SQ 3 times daily with meals; +SLIDING SCALE insulin glargine [Lantus Solostar U-100 Insulin] 100 unit/mL (3 mL) insulin pen 30 unit subcut QPM (DME) insulin syringe-needle U-100 [TRUEplus Insulin] 0.5 mL 31 gauge x 5/16 syringe 1 syringe MISCELLANEOUS 4X/DAY hydrocodone-acetaminophen 5-325 mg tablet 1 tab PO Q6H PRN PRN (Reason: Pain) 2 Days Qty: 6 0RF metoprolol tartrate 25 mg tablet 25 mg PO BID PRN PRN (Reason: palpitations) Discontinued naproxen 500 mg tablet 500 mg PO BID Qty: 14 0RF Referrals / Follow Up: Herbert Caldera MD [Med Staff - Courtesy Staff, Endocrinology] - Within 1 Month Care Physician,No Primary [Primary Care Provider, Medical] Referral Note: -If you do not have a primary care physician of list of local primary care physicians can be provided for you upon discharge. Please ask for this list prior to discharge Disposition Disposition (needs filled in before D/C Order can be placed): Home, Self Care
--- NOTE | 2025-06-10 16:28 | PCM.DC.SUM ---
Providers Date of Admission: 06/09/25 Date of Discharge: 06/11/25 Primary Care Physician: No Primary Care Phys Reason For Visit: DKA Diagnosis Discharge Diagnosis (1) DM type 1 (diabetes mellitus, type 1): Status: Chronic Qualifiers: Diabetes mellitus complication detail: with unspecified neuropathy Diabetes mellitus complication status: with neurologic complications Qualified Code(s): E10.40 - Type 1 diabetes mellitus with diabetic neuropathy, unspecified (2) DKA (diabetic ketoacidosis): Status: Acute Code(s): E11.10 - Type 2 diabetes mellitus with ketoacidosis without coma Plan # DKA w/ Diabetes mellitus type I #Tobacco use Medications at Discharge Home Medications insulin lispro 100 unit/mL subcutaneous pen See Rx Instructions SQ TIDCM short acting insulin 03/05/21 insulin glargine 100 unit/mL (3 mL) subcutaneous pen (Lantus Solostar U-100 Insulin) 30 unit subcut QPM diabetes 08/18/22 insulin syringe-needle U-100 0.5 mL 31 gauge x 5/16 (TRUEplus Insulin) 10/19/24 hydrocodone-acetaminophen 5-325mg 5mg-325mg 1 tab PO Q6H PRN PRN Pain 2 days #6 TABLETS 04/21/25 metoprolol tartrate 25 mg tablet 25 mg PO BID PRN PRN palpitations 06/09/25 Hospital Course Summary of Care Provided Minutes Spent on Discharge: 22 Hospital Course: Per HPI: 29 y/o M w/ PMHx: Chronic microcytic anemia, IDDM, Anxiety and Depression, Asthma, Chronic cognitive impairment with learning debilities chart reported, Tobacco use who presents to the [facility] ED on 06/09/2025 with history of elevated blood sugars with palpitations and racing heart admitting that potentially one of his insulin pens has not been working reporting that he is been attempting to give himself sliding scale since before lunch does not seem to be working with onset of symptoms falling similar to his previous. He checked his blood sugar most recently and it was more than 500 prompting him to call EMS to be cautious. He does report he had a loose stool earlier in the morning with mild nausea but no emesis. He denies any other recent symptoms including no fever or chills or URI type symptoms. Workup in the ED included T98.6, heart rate 113, BP 142/90, respiratory rate 18, 99% on room air, CBC with WC 13.4, Cindy 13.1, platelet 327 with lymphocytosis, CMP with sodium 131, chloride 95, Comvax at 14.3, anion gap 23, BUN/creatinine 20/0.88, GFR 120, ALT 89, alk phos 143, beta hydroxybutyrate acid 6.2, urinalysis pending upon request evaluation of patient. In the ED patient administered 1 L normal saline as well as initiated on an insulin drip. INTERVAL HISTORY: Patient's gap corrected overnight x 2 and patient transitioned off the drip and onto subcu insulin, suspected requirements would be fairly low given fairly low requirements with the drip to correct however does appear patient has higher requirements than anticipated. Patient did well with no new or acute complaints and was requesting to go home, discharged on his 30 units of long-acting insulin and encouraged compliance. He has an A1c of 16 so do significantly query his level of compliance. Did add referral for endocrinology as I do think he would significantly benefit from this. No new or acute complaints at time of discharge Physical Exam Narrative General: Alert, oriented, no apparent distress HEENT: Atraumatic, normocephalic Eyes: Anicteric, normal conjunctiva, extraocular movements grossly intact Neck: Supple Respiratory: Clear to auscultation bilaterally, normal respiratory effort Cardiovascular: Regular rate and rhythm GI: Soft, nontender, nondistended Extremities: No edema Musculoskeletal: Moving all extremities Neuro: No overt focal neurological deficits Skin: No rashes appreciated Psych: Cooperative Weight / BMI Weight Weight: 60 kg Body Mass Index (BMI) 17.5 ABG / Lab / Microbiology Data 06/10/25 05:25 06/10/25 14:05 Laboratory: Laboratory Results - last 24 hr 06/10/25 10:58: POC Glucose 317 H 06/10/25 14:05: Sodium 131 L, Potassium 4.7, Chloride 100, Carbon Dioxide 19.2 L, Anion Gap 12, BUN 10, Creatinine 0.52 L, Estim Creat Clear Calc 179.49, Est GFR (MDRD) Non-Af 141, BUN/Creatinine Ratio 18.4, Glucose 322 H, Calcium 8.2 06/10/25 16:40: POC Glucose 276 H D/C Instructions DC O2, CPAP, BIPAP Needs Home O2 Discharge instructions: No Meaningful Use Info Meaningful Use Meaningful Use Diagnoses (Choose all that apply): None applicable Discharge Plan Admission Admit Date/Time: 06/09/25 19:42 Primary Reason for Your Visit: DKA Attending Provider: Marcelina Erickson Primary Care Provider: Care Physician,No Primary Consulting Providers: Sarah Oh Instructions Patient Instructions: Diabetes Support Additional Instructions / Restrictions: DISCHARGE INSTRUCTIONS PLEASE READ *Please take this with you to your next doctors appointment* - Please resume your home insulin, will be very important that you use this consistently -Would recommend lab work (BMP) to check your kidney function and electrolytes in 2 to 3 days through your primary care physician's office. Please call their office upon discharge to obtain order for lab work. -If you do not already have an bag hanger it would be beneficial for you to establish with one, information to follow-up with Dr. Caldera is included -Please call your primary care provider's office upon discharge to schedule a hospital follow up within 1 week. -If you do not have a primary care physician of list of local primary care physicians can be provided for you upon discharge. Please ask for this list prior to discharge -For any concerning signs or symptoms please call 911 or proceed to the nearest emergency department Discharge Orders/Prescriptions Prescriptions: Continued insulin lispro 100 UNIT/ML insulin pen See Rx Instructions SQ TIDCM Rx Instructions: SLIDING SCALE SQ 3 times daily with meals; +SLIDING SCALE insulin glargine [Lantus Solostar U-100 Insulin] 100 unit/mL (3 mL) insulin pen 30 unit subcut QPM (DME) insulin syringe-needle U-100 [TRUEplus Insulin] 0.5 mL 31 gauge x 5/16 syringe 1 syringe MISCELLANEOUS 4X/DAY hydrocodone-acetaminophen 5-325 mg tablet 1 tab PO Q6H PRN PRN (Reason: Pain) 2 Days Qty: 6 0RF metoprolol tartrate 25 mg tablet 25 mg PO BID PRN PRN (Reason: palpitations) Discontinued naproxen 500 mg tablet 500 mg PO BID Qty: 14 0RF Referrals / Follow Up: Herbert Caldera MD [Med Staff - Courtesy Staff, Endocrinology] - Within 1 Month Care Physician,No Primary [Primary Care Provider, Medical] Referral Note: -If you do not have a primary care physician of list of local primary care physicians can be provided for you upon discharge. Please ask for this list prior to discharge Disposition Disposition (needs filled in before D/C Order can be placed): Home, Self Care Charges/Coding Visit Charges Inpatient E&M: 62398 Disch Hosp
== END 2025-06-10 17:25 | disposition home or self-care (01) | DRG 420 ==
LOC: ED 19:46 → ICU 20:59
PROVIDERS: Admitting Provider Family Medicine; Emergency Provider Emergency Medicine; Visit Provider Internal Medicine
DX: E10.10 Type 1 diabetes mellitus with ketoacidosis without coma (principal); D50.9 Iron deficiency anemia, unspecified; E10.40 Type 1 diabetes mellitus with diabetic neuropathy, unspecified; F17.210 Nicotine dependence, cigarettes, uncomplicated; F17.220 Nicotine dependence, chewing tobacco, uncomplicated; I10 Essential (primary) hypertension; F32.A Depression, unspecified; F41.9 Anxiety disorder, unspecified; Z79.4 Long term (current) use of insulin; F17.290 Nicotine dependence, other tobacco product, uncomplicated; Z91.148 Patient's other noncompliance with medication regimen for other reason; Z23 Encounter for immunization
CPT/HCPCS: 80048; 80051; 80053; 81001; 82010; 82962; 83036; 83735; 84100; 85025; 93005; 97802; 99285; A4216

== ENCOUNTER → 2025-07-03 | Outpatient (CLI) | payer MEDICAID, SELFPAY ==
[2025-07-03 12:18] LABS: Hematocrit 39.6 % (40-54); Hemoglobin 12.3 g/dL (13.0-16.5); Immature Granulocytes Count 0.040 X10^3/uL (0.0-0.0); Mean Corp Hgb Conc 31.1 g/dL (32-36); Mean Corpuscular Volume 82.8 fL (80-94); Mean Platelet Vol. 11.4 fl (6.2-12.0); NRBC Flagged by Analyzer 0 % (0-5); Platelet Count 297 K/mm3 (150-450); RBC Distribution Width CV 13.8 % (11.6-14.6); RBC Distribution Width SD 41.7 fl (35.1-43.9); Red Blood Count 4.78 M/mm3 (4.6-6.2); White Blood Count 12.0 K/mm3 (4.4-11.0)
[2025-07-03 12:59] LABS: Microalbumin,Random Urine 60.7 mg/L (<20 mg/L)
[2025-07-03 13:17] LABS: AST(SGOT) 48 U/L (<=37); Alanine Aminotransfer ALT/SGPT 47 U/L (<=46); Albumin, Serum 3.4 g/dL (3.5-5.0); Alkaline Phosphatase 126 U/L (40-129); Anion Gap 15 (5-15); BUN 19 mg/dL (4-19); BUN/Creat Ratio 27.5 RATIO (10-20); Calcium,Total 8.1 mg/dL (7.6-11.0); Carbon Dioxide 19.5 mmol/L (21.0-32.0); Chloride 100 mmol/L (98-108); Cholesterol 139 mg/dL (<=200); Globulin 2.7 g/dL (2.2-4.2); Glucose 325 mg/dL (70-99); Low Density Lipoprotein Calc. 76 mg/dL; Potassium 4.7 mmol/L (3.3-5.1); Triglycerides 74 mg/dL; Very Low Density Lipoprotein 15 mg/dL (5-40); cholesterol:hdl ratio screen 2.89
== END | disposition home or self-care (01) ==
LOC: VSLAB 10:48
DX: E10.9 Type 1 diabetes mellitus without complications (principal)
CPT/HCPCS: 36415; 80053; 80061; 82043; 83036; 85025

== ENCOUNTER 2025-07-19 23:51 | Emergency (ER) | payer MEDICAID, SELFPAY ==
--- NOTE | 2025-07-19 00:15 | RAD_ITS ---
PROCEDURE: CHEST 1 VIEW (PORTABLE) 07/20/2025 REASON FOR EXAM: SOB TECHNIQUE: Frontal view of the chest. COMPARISON: 01/26/2025. FINDINGS: The lungs are expanded. There is no demonstrated parenchymal abnormality. There is no demonstrated pleural abnormality. Normal heart and pericardium. Normal mediastinum and nikolas. Normal visualized pulmonary arteries. Normal visualized aortic arch and descending thoracic aorta. Normal visualized thoracic spine. Normal visualized ribs, clavicles, and shoulders. There is no demonstrated abnormality of the visualized soft tissue structures of the upper abdomen. RAD/Chest 1 View (Portable) IMPRESSION: No evidence for acute abnormality. Reading Location: [facility]
[2025-07-19 23:52] VITALS: PULSE 116
[2025-07-19 23:54] VITALS: BP 140/101; PULSE 117; RESP 18; TEMP 36.7; O2SAT 100; BMI 16.8
--- NOTE | 2025-07-19 23:57 | EKG12_ITS ---
Test Reason : DYSRHYTHMIA Blood Pressure : */* mmHG Vent. Rate : 105 BPM Atrial Rate : 105 BPM P-R Int : 154 ms QRS Dur : 84 ms QT Int : 326 ms P-R-T Axes : 67 59 50 degrees QTcB Int : 430 ms Sinus tachycardia Right atrial enlargement Nonspecific ST abnormality Abnormal ECG Confirmed by MEGAN MIRELES, NIKKI ([id number]), image editor DOMINIC KEENE ([id number]) on 07/23/2025 6:51:00 AM Referred By: TONY Confirmed By: NIKKI GUZMAN MD
[2025-07-20 00:09] LABS: Hematocrit 41.8 % (40-54); Hemoglobin 13.8 g/dL (13.0-16.5); Immature Granulocytes Count 0.100 X10^3/uL (0.0-0.0); Mean Corp Hgb Conc 33.0 g/dL (32-36); Mean Corpuscular Volume 77.8 fL (80-94); Mean Platelet Vol. 10.4 fl (6.2-12.0); NRBC Flagged by Analyzer 0 % (0-5); Platelet Count 373 K/mm3 (150-450); RBC Distribution Width CV 13.4 % (11.6-14.6); RBC Distribution Width SD 38.1 fl (35.1-43.9); Red Blood Count 5.37 M/mm3 (4.6-6.2); White Blood Count 9.7 K/mm3 (4.4-11.0)
--- OUTSIDE RECORDS SUMMARY | 2025-07-20 00:19 | XMS RPT_ITS | CCD ---
Author Organization [facility] Care Team Providers Care Food Service Steward Name Role Phone [employer] Unavailable Edwina Quintero NP Unavailable [phone] [employer] Unavailable [employer] Unavailable [employer] Unavailable [...] P Unavailable Unavailable ISIDRO BRAR Unavailable Unavailable [facility] Mucus LM Ql (Urine sed)Order ed By: Keisha Handy on 10-19-2024 Mucus Ql (Urine sed) 0 SEEN /hpf [facility] Neutrophil percentageOrdered By: Keisha Handy on 10-19-2024 Neutrophils/100 WBC (Bld) 63.5 % 47-70 [facility] Nitrite Test strip Ql (U)Ord ered By: Keisha Handy on 10-19-2024 Nitrite Ql (U) Negative Negative [facility] No Panel InformationOrdered By: Keisha Handy on 10-19-2024 Blood Gas Sample Site Not entered [facility] Blood Gas Specimen Type JAIDEN W [facility] Oxygen Delivery Device Room Air [facility] Beta-Hydroxybutyric Acid mmol/L 0.6 mmol/L 0.0-0.3 [facility] Troponin T High Sensitivity 8 ng/L <22 [facility] Comment on above: Previous reported re sult: 7 ng/LEdited by: LUCERO on 10/19/24:0201 AMENDED REPORT 10/19/24 0201 Trop T High Sen previously reported as: 7 ng/L Nucleated red blood cell per centageOrdered By: Keisha Handy on 10-19-2024 Nucleated RBC/100 WBC (Bld) [Ratio] 0 % 0-5 [facility] Oxygen (BldV) [Partial press ure]Ordered By: Keisha Handy on 10-19-2024 Venous Blood Partial Pressure O2 32 mmHg 25-40 [facility] Platelet countOrdered By: Javier Handy on 10-19-2024 Platelets (Bld) [#/Vol] 346 10*3/uL 150-450 [facility] Potassium (Unsp spec) [Mass/ Vol]Ordered By: Keisha Handy on 10-19-2024 Potassium [Moles/Vol] 4.1 mmol/L 3.3-5.1 [facility] Potassium measurement (mass/ volume)Ordered By: Keisha Handy on 10-19-2024 Potassium (Unsp spec) [Mass/Vol] 4.1 mmol/L 3.3-5.1 [facility] Protein Test strip Ql (U)Ord ered By: Keisha Handy on 10-19-2024 Protein Ql (U) 100 mg/dl High Negative [facility] RBC Auto (Bld) [#/Vol]Ordere d By: Keisha Handy on 10-19-2024 RBC (Bld) [#/Vol] 5.78 10*6/uL 4.6-6.2 [facility] Serum creatinine measurement (mass/volume)Ordered By: Keisha Handy on 10-19-2024 Creatinine [Mass/Vol] 0.63 mg/dL Low 0.70-1.20 [facility] Serum glucose measurement (m ass/volume)Ordered By: Keisha Handy on 10-19-2024 Glucose [Mass/Vol] 458 mg/dL High 70-99 [facility] Comment on above: Critical Result(s) C alled at:0208 by: SERAFIN BELL TO RN SHUFF2 Results read back by same.Previous reported result: 457 mg/dLEdited by: LUCERO on 10/19/24:0209 AMENDED REPORT 10/19/24 020 GLU previously reported as: 457 *H mg/dL Serum or plasma calcium koby urement (mass/volume)Ordered By: Keisha Handy on 10-19-2024 Calcium [Mass/Vol] 8.9 mg/dL 7.6-11.0 [facility] Serum or plasma urea nitroge n measurement (mass/volume)Ordered By: Keisha Handy on 10-19-2024 Urea nitrogen [Mass/Vol] 17 mg/dL 4-19 [facility] Comment on above: Previous reported re sult: 16 mg/dLEdited by: LUCERO on 10/19/24:0209 AMENDED REPORT 10/19/24 020 BUN previously reported as: 16 mg/dL Sodium levelOrdered By: Roger Handy on 10-19-2024 Sodium [Moles/Vol] 129 mmol/L Low 133-145 [facility] Comment on above: Previous reported re sult: 130 mmol/LEdited by: LUCERO on 10/19/24:0209 AMENDED REPORT 10/19/24 020 NA previously reported as: 130 L mmol/L Squamous epithelial cells de tection in urine sediment by light microscopyOrdered By: Keisha Handy on 10-19-2024 Epithelial cells.squamous LM Ql (Urine sed) 0-5 SEEN /hpf 0-5 [facility] Troponin T.cardiac High sens itivity method [Mass/Vol]Ordered By: Keisha Handy on 10-19-2024 Troponin T High Sensitivity 2 Hour 9 ng/L <22 [facility] Troponin T.cardiac [Mass/vol ume] in Serum or Plasma by High sensitivity methodOrdered By: Keisha Handy on 10-19-2024 Troponin T.cardiac High sensitivity method [Mass/Vol] 9 ng/L <22 [facility] Urinalysis, Completeon 10-19 BACTERIA 1+ /hpf Normal None Seen [facility] Comment on above: Order Comment: MANN CTOR TO SPECIFY Performed By: #### L 400.0001 ####[facility] [address] [place], [address] EPI,SQUAMOUS 0-5 SEEN Normal 0-5 [facility] Comment on above: Order Comment: MANN CTOR TO SPECIFY Performed By: #### L 400.0001 ####[facility] [address] [place], [address] RBC 0-5 SEEN Normal 0-5 [facility] Comment on above: Order Comment: MANN CTOR TO SPECIFY Performed By: #### L 400.0001 ####[facility] [address] [place], [address] Mucus Ql (Urine sed) 0 SEEN Normal [facility] Comment on above: Order Comment: MANN CTOR TO SPECIFY Performed By: #### L 400.0001 ####[facility] [address] [place], [address] WBC 0 SEEN Normal 0-5 [facility] Comment on above: Order Comment: MANN CTOR TO SPECIFY Performed By: #### L 400.0001 ####[facility] [address] [place], [address] Urine blood detectionOrdered By: Keisha Handy on 10-19-2024 Urine Occult Blood 25 /ul High Negative [facility] Urine clarityOrdered By: Soraida Handy on 10-19-2024 Clarity (U) Clear Clear [facility] Urine color determinationOrd ered By: Keisha Handy on 10-19-2024 Color (U) Yellow Yellow [facility] Urine glucose detectionOrder ed By: Keisha Handy on 10-19-2024 Glucose Ql (U) 1000 mg/dl High Normal [facility] Urine leukocyte esterase det ection by dipstickOrdered By: Keisha Handy on 10-19-2024 Leukocyte esterase Test strip Ql (U) Negative Negative [facility] Urine pHOrdered By: Keisha santiago on 10-19-2024 pH (U) 6.0 [pH] 5.0 - 8.0 [facility] Urine sediment bacteria coun t by microscopy (number/high power field)Ordered By: Keisha Handy on 10-19-2024 Bacteria LM.HPF (Urine sed) [#/Area] 1 /[HPF] None Seen [facility] Urine specific gravity measu rementOrdered By: Keisha Handy on 10-19-2024 Specific gravity (U) [Rel density] 1.010 1.002-1.03 0 [facility] Urine urobilinogen measureme ntOrdered By: Keisha Handy on 10-19-2024 Urobilinogen Ql (U) Normal mg/dl Normal [facility] Urobilinogen Ql (U)Ordered B y: Keisha Handy on 10-19-2024 Urine Urobilinogen Normal mg/dl Normal [facility] Venous Blood Gason Blood Gas Type JAIDEN Normal [facility] Comment on above: Performed By: #### L 9000.0810 ####[facility] [address] [place], [place], [address] CO2 [Moles/Vol] 25 mmol/L Normal 23-33 [facility] Comment on above: Performed By: #### L 9000.0810 ####[facility] [address] [place], [address] HCO3 (Bld) [Moles/Vol] 23 mmol/L Normal 22-26 [facility] Comment on above: Performed By: #### L 9000.0810 ####[facility] [address] [place], [place], [address] O2 Delivery Dev Room Air Normal [facility] Comment on above: Performed By: #### L 9000.0810 ####[facility] [address] [place], [address] SITE Not entered Normal [facility] Comment on above: Performed By: #### L 9000.0810 ####[facility] [address] [place], [address] VBG BE -2 mmol/L Low -1.0-3.5 [facility] Comment on above: Performed By: #### L 9000.0810 ####[facility] [address] [place], [address] VBG pCO2 41.4 mmHg Normal 41-51 [facility] Comment on above: Performed By: #### L 9000.0810 ####[facility] [address] [place], [address] VBG pH 7.36 Normal 7.32-7.42 [facility] Comment on above: Performed By: #### L 9000.0810 ####[facility] [address] [place], [address] VBG PO2 32 mmHg Normal 25-40 [facility] Comment on above: Performed By: #### L 9000.0810 ####[facility] [address] [place], [address] VBG SO2 59 Normal 50-70 [facility] Comment on above: Performed By: #### L 9000.0810 ####[facility] [address] [place], [address] Venous blood base excess yaya surementOrdered By: Keisha Handy on 10-19-2024 Base excess Calc (BldV) [Moles/Vol] -2 mmol/L Low -1.0-3.5 [facility] Venous blood bicarbonate yaya surementOrdered By: Keisha Handy on 10-19-2024 HCO3 (Bld) [Moles/Vol] 23 mmol/L 22-26 [facility] Venous blood oxygen saturati on measurementOrdered By: Keisha Handy on 10-19-2024 Oxygen saturation in Blood 59 % 50-70 [facility] Venous blood pH measurementO rdered By: Keisha Handy on 10-19-2024 pH (BldV) 7.36 [pH] 7.32-7.42 [facility] Venous blood partial pressur e of carbon dioxide measurementOrdered By: Keisha Handy on 10-19-2024 CO2 (BldV) [Partial pressure] 41.4 mm[Hg] 41-51 [facility] Venous blood partial pressur e of oxygen measurementOrdered By: Keisha Handy on 10-19-2024 Oxygen (BldV) [Partial pressure] 32 mm[Hg] 25-40 [facility] White blood cell (WBC) count Ordered By: Keisha Handy on 10-19-2024 WBC (Bld) [#/Vol] 13.4 10*3/uL High 4.4-11.0 [facility] White blood cell countOrdere d By: Keisha Handy on 10-19-2024 Urine WBC 0 SEEN /hpf 0-5 [facility] White blood cell count 0 SEEN /hpf 0-5 W [facility] pH (BldV)Ordered By: Keisha Handy on 10-19-2024 Venous Blood pH 7.36 7.32-7.42 [facility] CBC W Auto Differential pane l (Bld)on 10-10-2024 Basophils (Bld) [#/Vol] 0.06 10*3/uL Normal <0.11 [facility] Comment on above: Order Comment: Speci men Type: BLOOD SPECIMEN Ordering Facility: Nasreen León [facility] Address: [address] [facility], [place] [address] Performed By: #### 5 7021-8 #### [facility] CLIA [id number] [address] [place] [address] [place] Basophils/100 WBC (Bld) 0.5 % Normal [facility] Comment on above: Order Comment: Speci men Type: BLOOD SPECIMEN Ordering Facility: [facility] Address: [address] [place] [address] Performed By: #### 5 7021-8 #### [facility] CLIA [id number] [address] [place] [address] [place] Differential cell count method Nom (Bld) Auto Normal [facility] Comment on above: Order Comment: Speci men Type: BLOOD SPECIMEN Ordering Facility: [facility] Address: [address] [place] [address] Performed By: #### 5 7021-8 #### [facility] CLIA [id number] [address] [place] [address] [place] Eosinophils (Bld) [#/Vol] 0.20 10*3/uL Normal <0.46 [facility] Comment on above: Order Comment: Speci men Type: BLOOD SPECIMEN Ordering Facility: [facility] Address: [address] [place] [address] Performed By: #### 5 7021-8 #### [facility] CLIA [id number] [address] [place] [address] [place] Eosinophils/100 WBC (Bld) 1.6 % Normal [facility] Comment on above: Order Comment: Speci men Type: BLOOD SPECIMEN Ordering Facility: [facility] Address: [address] [place] [address] Performed By: #### 5 7021-8 #### [facility] CLIA [id number] [address] [place] [address] [place] Erythrocyte distribution width (RBC) [Ratio] 16.2 % High 11.5-15.0 [facility] Comment on above: Order Comment: Speci men Type: BLOOD SPECIMEN Ordering Facility: [facility] Address: [address] [place] [address] Performed By: #### 5 7021-8 #### [facility] CLIA [id number] [address] [place] [address] [place] Hematocrit (Bld) [Volume fraction] 42.3 % Normal 39.0-51.0 [facility] Comment on above: Order Comment: Speci men Type: BLOOD SPECIMEN Ordering Facility: [facility] Address: [address] [place] [address] Performed By: #### 5 7021-8 #### [facility] CLIA [id number] [address] [place] [address] [place] Hemoglobin (Bld) [Mass/Vol] 13.0 g/dL Normal 13.0-17.0 [facility] Comment on above: Order Comment: Speci men Type: BLOOD SPECIMEN Ordering Facility: [facility] Address: [address] [place] [address] Performed By: #### 5 7021-8 #### [facility] CLIA [id number] [address] [place] [address] [place] Immature granulocytes (Bld) [#/Vol] 0.04 10*3/uL Normal <0.10 [facility] Comment on above: Order Comment: Speci men Type: BLOOD SPECIMEN Ordering Facility: [facility] Address: [address] [place] [address] Performed By: #### 5 7021-8 #### [facility] CLIA [id number] [address] [place] [address] [place] Immature granulocytes/100 WBC (Bld) 0.3 % Normal [facility] Comment on above: Order Comment: Speci men Type: BLOOD SPECIMEN Ordering Facility: [facility] Address: [address] [place] [address] Performed By: #### 5 7021-8 #### [facility] CLIA [id number] [address] [place] [address] [place] Lymphocytes (Bld) [#/Vol] 4.12 10*3/uL High 1.00-4.00 [facility] Comment on above: Order Comment: Speci men Type: BLOOD SPECIMEN Ordering Facility: [facility] Address: [address] [place] [address] Performed By: #### 5 7021-8 #### [id number] [address] [place] [address] [place] Lymphocytes/100 WBC (Bld) 33.4 % Normal [facility] Comment on above: Order Comment: Speci men Type: BLOOD SPECIMEN Ordering Facility: [facility] Address: [address] [place] [address] Performed By: #### 5 7021-8 #### [facility] [id number] [address] [place] [address] [place] MCH (RBC) [Entitic mass] 23.2 pg Low 26.0-34.0 [facility] Comment on above: Order Comment: Speci men Type: BLOOD SPECIMEN Ordering Facility: [facility] Address: [address] [place] [address] Performed By: #### 5 7021-8 #### [facility] [id number] [address] [place] [address] [place] MCHC (RBC) [Mass/Vol] 30.7 g/dL Normal 30.5-36.0 [facility] Comment on above: Order Comment: Speci men Type: BLOOD SPECIMEN Ordering Facility: [facility] Address: [address] [place] [address] Performed By: #### 5 7021-8 #### [facility] [id number] [address] [place] [address] [place] MCV (RBC) [Entitic vol] 75.4 fL Low 80.0-100.0 [facility] Comment on above: Order Comment: Speci men Type: BLOOD SPECIMEN Ordering Facility: [facility] Address: [address] [place] [address] Performed By: #### 5 7021-8 #### [facility] CLIA [id number] [address] [place] [address] [place] Monocytes (Bld) [#/Vol] 0.97 10*3/uL High <0.87 [facility] Comment on above: Order Comment: Speci men Type: BLOOD SPECIMEN Ordering Facility: [facility] Address: [address] [place] [address] Performed By: #### 5 7021-8 #### [facility] CLIA [id number] [address] [place] [address] [place] Monocytes/100 WBC (Bld) 7.9 % Normal C [facility] Comment on above: Order Comment: Speci men Type: BLOOD SPECIMEN Ordering Facility: [facility] Address: [address] [place] [address] Performed By: #### 5 7021-8 #### [facility] CLIA [id number] [address] [place] [address] [place] Neutrophils (Bld) [#/Vol] 6.94 10*3/uL Normal 1.45-7.50 [facility] Comment on above: Order Comment: Speci men Type: BLOOD SPECIMEN Ordering Facility: [facility] Address: [address] [place] [address] Performed By: #### 5 7021-8 #### [facility] CLIA [id number] [address] [place] [address] [place] Neutrophils/100 WBC (Bld) 56.3 % Normal [facility] Comment on above: Order Comment: Speci men Type: BLOOD SPECIMEN Ordering Facility: [facility] Address: [address] [place] [address] Performed By: #### 5 7021-8 #### [facility] CLIA [id number] [address] [place] [address] [place] Nucleated RBC (Bld) [#/Vol] 10*3/uL Normal <0.01 [facility] Comment on above: Order Comment: Speci men Type: BLOOD SPECIMEN Ordering Facility: [facility] Address: [address] [place] [address] Performed By: #### 5 7021-8 #### [facility] CLIA [id number] [address] [place] [address] [place] Nucleated RBC/100 WBC (Bld) [Ratio] 0.0 /100 WBC Normal [facility] Comment on above: Order Comment: Speci men Type: BLOOD SPECIMEN Ordering Facility: [facility] Address: [address] [place] [address] Performed By: #### 5 7021-8 #### [facility] CLIA [id number] [address] [place] [address] [place] Platelet mean volume (Bld) [Entitic vol] 11.3 fL Normal 9.0-12.7 [facility] Comment on above: Order Comment: Speci men Type: BLOOD SPECIMEN Ordering Facility: [facility] Address: [address] [place] [address] Performed By: #### 5 7021-8 #### [facility] CLIA [id number] [address] [place] [address] [place] Platelets (Bld) [#/Vol] 403 10*3/uL High 150-400 [facility] Comment on above: Order Comment: Speci men Type: BLOOD SPECIMEN Ordering Facility: [facility] Address: [address] [place] [address] Performed By: #### 5 7021-8 #### [facility] CLIA [id number] [address] [place] [address] [place] RBC (Bld) [#/Vol] 5.61 10*6/uL Normal 4.20-6.00 [facility] Comment on above: Order Comment: Speci men Type: BLOOD SPECIMEN Ordering Facility: [facility] Address: [address] [place] [address], [place] [address] Performed By: #### 5 7021-8 #### [facility] CLIA [id number] [address] [place] [address] [place] WBC (Bld) [#/Vol] 12.33 10*3/uL High 3.70-11.[address] [facility] Comment on above: Order Comment: Speci men Type: BLOOD SPECIMEN Ordering Facility: [facility] Address: [address] [place] [address] Performed By: #### 5 7021-8 #### [facility] CLIA [id number] [address] [place] [address] [place] Comprehensive metabolic 2000 panelon 10-10-2024 Albumin [Mass/Vol] 3.8 g/dL Low 3.9-4.[address] [facility] Comment on above: Order Comment: Speci men Type: BLOOD SPECIMEN Ordering Facility: [facility] Address: [address] [place] [address], [place] [address] Performed By: #### 2 4323-8, 3016-3 #### [facility] CLIA [id number] [address] [place] [address] [place] #### 28177-3 #### [facility] CLIA [id number] [address] [place] [address] [place] [facility] CLIA [id number] [address] [place] [address] [place] ALP [Catalytic activity/Vol] 175 U/L High 38-113 [facility] Comment on above: Order Comment: Speci men Type: BLOOD SPECIMEN Ordering Facility: [facility] Address: [address] [place] [address] Performed By: #### 2 4323-8, 3016-3 #### [facility] CLIA [id number] [address] [place], [place] [id number] [place] [address] [place] #### 37330-9 #### [facility] CLIA [id number] [address] [place] [address] [place] [facility] CLIA [id number] [address] [place] [address] [place] ALT With P-5'-P [Catalytic activity/Vol] 22 U/L Normal 10-54 [facility] Comment on above: Order Comment: Speci men Type: BLOOD SPECIMEN Ordering Facility: [facility] Address: [address] [place] [address] Performed By: #### 2 4323-8, 3016-3 #### [facility] CLIA [id number] [address] [place] #### 44891-7 #### [facility] CLIA [id number] [address] [place] [address] [place] [facility] CLIA [id number] [address] [place] [address] [place] Anion gap [Moles/Vol] 16 mmol/L High 8-15 [facility] Comment on above: Order Comment: Speci men Type: BLOOD SPECIMEN Ordering Facility: [facility] Address: [address] [place] [address], [place] [address] Performed By: #### 2 4323-8, 3016-3 #### [facility] CLIA [id number] [address] [place] [address] [place] #### 78380-9 #### [facility] CLIA [id number] [address] [place] [address] [place] [facility] CL[facility] [id number] [address] [place] [address] [place] AST With P-5'-P [Catalytic activity/Vol] 16 U/L Normal 14-40 [facility] Comment on above: Order Comment: Speci men Type: BLOOD SPECIMEN Ordering Facility: [facility] Address: [address] [facility], [place] [address] Performed By: #### 2 4323-8, 6-3 #### [facility] CLIA [id number] [address] [place] #### 14334-3 #### [facility] CLIA [id number] [address] [place] [address] [place] [facility] CLIA [id number] [address] [place] [address] [place] Bilirubin [Mass/Vol] 0.2 mg/dL Normal 0.2-1.[address] [facility] Comment on above: Order Comment: Speci men Type: BLOOD SPECIMEN Ordering Facility: [facility] Address: [address] [facility], [place] [address] Performed By: #### 2 432-8, 3015-3 #### [facility] CLIA [id number] [address] [place] #### 44283-8 #### [facility] CLIA [id number] [address] [place] [address] [place] [facility] CLIA [id number] [address] [place] [address] [place] Calcium [Mass/Vol] 8.9 mg/dL Normal 8.5-10.[address] [facility] Comment on above: Order Comment: Speci men Type: BLOOD SPECIMEN Ordering Facility: [facility] Address: [address] [facility], [place] [address] Performed By: #### 2 4323-8, 3015-3 #### [facility] CLIA [id number] [address] [address] [place] #### 62041-8 #### [facility] CLIA [id number] 1 [place] [address] [place] [facility] CLIA [id number] [address] [place] [address] [place] Chloride [Moles/Vol] 88 mmol/L Low 98-[address] [facility] Comment on above: Order Comment: Speci men Type: BLOOD SPECIMEN Ordering Facility: [facility] Address: [address] [place] [address], [place] [address] Performed By: #### 2 4323-8, 3016-3 #### [facility] CLIA [id number] [address] [place] #### 59223-5 #### [facility] CLIA [id number] 1 [place] [address] [place] [facility] CLIA [id number] [address] [place] [address] [place] CO2 [Moles/Vol] 23 mmol/L Normal 22-30 [facility] Comment on above: Order Comment: Speci men Type: BLOOD SPECIMEN Ordering Facility: [facility] Address: [address] [place] [address], [place] [address] Performed By: #### 2 4323-8, 3016-3 #### [facility] CLIA [id number] [address] [place] #### 46600-4 #### [facility] CLIA [id number] 1 [place] [address] [place] [facility] CLIA [id number] [address] [place] [address] [place] Creatinine [Mass/Vol] 0.64 mg/dL Low 0.73-1.22 [facility] Comment on above: Order Comment: Speci men Type: BLOOD SPECIMEN Ordering Facility: [facility] Address: [address] [place] [address], [place] [address] Performed By: #### 2 4323-8, 3016-3 #### [facility] CLIA [id number] [address] [place] #### 98703-8 #### [facility] CLIA [id number] [address] CLIA [id number] [address] [place] [address] Creatinine and Glomerular filtration rate.predicted panel (S/P/Bld) 133 mL/min/1.73m??? Normal >=60 [facility] Comment on above: Order Comment: Speci men Type: BLOOD SPECIMEN Ordering Facility: [facility] Address: [address] [place] [address], [place] [address] Result Comment: Tara mated Glomerular Filtration Rate [...] Performed By: #### 2 4323-8, 3016-3 #### [facility] CLIA [id number] [address] #### 47874-9 #### [facility] CLIA [id number] [address] CLIA [id number] [address] [place] [address] [place] Glucose [Mass/Vol] 659 mg/dL High 74-[address] [facility] Comment on above: Order Comment: Specsimone nguyễn Type: BLOOD SPECIMEN Ordering Facility: [facility] Address: [address] [place] [address], [place] [address] Result Comment: The [place] Diabetes Association (ADA) provides guidance for cutoff [...] Standards of Medical Care in Diabetes 2016, [place] Diabetes Association. Diabetes Care. 2016.39(Suppl 1). Performed By: #### 2 4323-8, 3016-3 #### [facility] CLIA [id number] [address] #### 21871-5 #### [facility] CLIA [id number] [id number] [place] [address] [place] Potassium [Moles/Vol] 4.5 mmol/L Normal 3.7-5.1 [facility] Comment on above: Order Comment: Speci men Type: BLOOD SPECIMEN Ordering Facility: [facility] Address: [address] [place] [address] Performed By: #### 2 8, 6-3 #### [facility] CLIA [id number] [address] #### 54665-9 #### [facility] CLIA [id number] [id number] [place] [address] [place] Protein [Mass/Vol] 6.9 g/dL Normal 6.3-8.[address] [facility] Comment on above: Order Comment: Speci men Type: BLOOD SPECIMEN Ordering Facility: [facility] Address: [address] [place] [address] Performed By: #### 2 4323-8, 6-3 #### [facility] CLIA [id number] [address] #### 07979-2 #### [facility] CLIA [id number] 1 [place] [address] [place] [facility] CLIA [id number] [address] [place] [address] [place] Sodium [Moles/Vol] 127 mmol/L Low 136-[address] [facility] Comment on above: Order Comment: Speci men Type: BLOOD SPECIMEN Ordering Facility: [facility] Address: [address] [place] [address], [place] [address] Performed By: #### 2 4323-8, 3016-3 #### [facility] CLIA [id number] [address] [place] #### 69063-6 #### [facility] CLIA [id number] 1 [place] [address] [place] [facility] CLIA [id number] [address] [place] [address] [place] Urea nitrogen [Mass/Vol] 17 mg/dL Normal 9-24 [facility] Comment on above: Order Comment: Speci men Type: BLOOD SPECIMEN Ordering Facility: [facility] Address: [address] [place] [address], [place] [address] Performed By: #### 2 4323-8, 3016-3 #### [facility] CLIA [id number] [address] [place] #### 86332-5 #### [facility] CLIA [id number] 1 [place] [address] [place] [facility] CLIA [id number] [address] [place] [address] [place] Lipid 1996 panelon 5 Cholesterol [Mass/Vol] 177 mg/dL Normal <200 [facility] Comment on above: Order Comment: Speci men Type: BLOOD SPECIMEN Ordering Facility: [facility] Address: [address] [facility], [place] [address] Result Comment: <200 mg/dL, Desirable 200-239 mg/dL, Borderline high >239 mg/dL, High Performed By: #### 2 4323-8, 3016-3 #### [facility] CLIA [id number] [address] #### 38928-8 #### [facility] CLIA [id number] [address] CLIA [id number] [address] [place] [address] Cholesterol in HDL [Mass/Vol] 46 mg/dL Normal >39 [facility] Comment on above: Order Comment: Speci men Type: BLOOD SPECIMEN Ordering Facility: [facility] Address: [address] [place] [address] Result Comment: 40-5 9 mg/dL, Acceptable >59 mg/dL, High: Negative risk factor for coronary heart disease <40 mg/dL, Low: Positive risk factor for coronary heart disease Performed By: #### 2 4323-8, 6-3 #### [facility] CLIA [id number] [address] #### 38540-9 #### [facility] CLIA [id number] [address] CLIA [id number] [address] [place] [address] Cholesterol in LDL [Mass/Vol] 86 mg/dL Normal <100 [facility] Comment on above: Order Comment: Speci men Type: BLOOD SPECIMEN Ordering Facility: [facility] Address: [address] [place] [address], [place] [address] Result Comment: <100 mg/dL, Optimal 100-129 mg/dL, Near optimal/above optimal 130-159 mg/dL, Borderline high 160-189 mg/dL, High >189 mg/dL, Very high Secondary prevention optimal LDL Cholesterol levels are recommended to be < 70 mg/dL Performed By: #### 2 4323-8, 6-3 #### [facility] CLIA [id number] [address] #### 27877-9 #### [facility] CLIA [id number] [address] CLIA [id number] [address] Cholesterol in LDL/Cholesterol in HDL [Mass ratio] 1.87 {ratio} Normal <2.54 [facility] Comment on above: Order Comment: Speci men Type: BLOOD SPECIMEN Ordering Facility: [facility] Address: [facility] [facility], [place] [address] Result Comment: Refe rengris: 1. National Cholesterol Education Program ATP III Guideline At-A-Glance Quick Desk Reference: National Heart, Lung, and Blood [place]. National Institutes of Health. 2001: NIH Publication No. 01-3305. 2. An International Atherosclerosis Society position paper: global recommendations for the management of dyslipidemia: executive summary, Atherosclerosis. 2014: 232(2):410-413. Performed By: #### 2 4323-8, 6-3 #### [facility] CLIA [id number] [address] #### 06475-2 #### [facility] CLIA [id number] [address] [id number] [address] Cholesterol in VLDL [Mass/Vol] 45 mg/dL High <30 [facility] Comment on above: Order Comment: Speci men Type: BLOOD SPECIMEN Ordering Facility: [facility] Address: [facility] [facility], [place] [address] Performed By: #### 2 4323-8, 3016-3 #### [facility] CLIA [id number] [address] #### 93111-6 #### [facility] CLIA [id number] [address] [place] [facility] CLIA [id number] [address] [place] [address] [place] Cholesterol non HDL [Mass/Vol] 131 mg/dL High <130 [facility] Comment on above: Order Comment: Speci men Type: BLOOD SPECIMEN Ordering Facility: [facility] Address: [address] [place] [address] Result Comment: <130 mg/dL, Optimal 130-159 mg/dL, Near optimal/above optimal 160-189 mg/dL, Borderline high 190-219 mg/dL, High >219 mg/dL, Very high Secondary prevention optimal non HDL Cholesterol levels are recommended to be <100 mg/dL Performed By: #### 2 4323-8, 3016-3 #### [facility] CLIA [id number] [address] [place] #### 54809-8 #### [facility] CLIA [id number] 1 [place] [address] [place] [facility] CLIA [id number] [address] [place] [address] [place] Cholesterol.total/Shanon sterol in HDL [Mass ratio] 3.85 {ratio} Normal <5.10 [facility] Comment on above: Order Comment: Speci men Type: BLOOD SPECIMEN Ordering Facility: [facility] Address: [address] [place] [address], [place] [address] Performed By: #### 2 4323-8, 3016-3 #### [facility] CLIA [id number] [address] [place] #### 84568-5 #### [facility] CLIA [id number] 1 [place] [address] [place] [facility] CLIA [id number] [address] [place] [address] [place] FASTING TIME 12 hrs Normal [facility] Comment on above: Order Comment: Speci men Type: BLOOD SPECIMEN Ordering Facility: [facility] Address: [address] [place] [address] Performed By: #### 2 4323-8, 3016-3 #### [facility] CLIA [id number] [address] #### 33358-9 #### [facility] CLIA [id number] [address] OF [facility] CLIA [id number] [address] Triglyceride [Mass/Vol] 226 mg/dL High <150 [facility] Comment on above: Order Comment: Speci men Type: BLOOD SPECIMEN Ordering Facility: [facility] Address: [address] [place] [address] Result Comment: <150 mg/dL, Normal 150-199 mg/dL, Borderline high 200-499 mg/dL, High >499 mg/dL, Very high Performed By: #### 2 432-8, 3016-3 #### [facility] CLIA [id number] [address] #### 21916-8 #### [facility] CLIA [id number] [address] OF [facility] CLIA [id number] [address] [place] [address] [place] TSH SerPl-aCncon 10-10-2024 TSH Qn 1.060 m[IU]/L Normal 0.270-4.20 0 [facility] Comment on above: Order Comment: Speci men Type: BLOOD SPECIMEN Ordering Facility: [facility] Address: [address] [place] [address], [place] [address] Performed By: #### 2 4323-8, 6-3 #### [facility] CLIA [id number] [address] OF [facility] #### 71158-2 #### [facility] CLIA [id number] 1 [place] [id number] [place] OF [facility] CLIA [id number] [address] [place] [id number] [place] [facility] Absolute lymphocyte countOrd ered By: Dr. Zarate on 01-03-2023 Lymphocytes Auto (Unsp spec) [#/Vol] 5.11 10*3/uL 0.83-4.51 [facility] Basophil percentageOrdered B y: Dr. Zarate on 01-03-2023 Basophils/100 WBC (Bld) 0.6 % 0-1 [facility] Chloride [Moles/Vol] 97 mmol/L 98-107 [facility] Eosinophils/100 WBC (Bld) 3.2 % 0-5 [facility] Glucose [Mass/Vol] 504 mg/dL 74-106 [facility] Comment on above: Glucose result great er than or equal to 200 mg/dLsuggests DIABETES MELLITUS per A.D.A. criteria. Neutrophils (Bld) [#/Vol] 5.5 10*3/uL 2.0-7.7 [facility] Neutrophils/100 WBC (Bld) 45.8 % 47-70 [facility] Potassium [Moles/Vol] 4.7 mmol/L 3.5-5.1 [facility] Sodium [Moles/Vol] 132 mmol/L 136-145 [facility] WBC (Bld) [#/Vol] 12.1 10*3/uL 4.4-11.0 [facility] Blood erythrocytes count (nu mber/volume)Ordered By: Dr. Zarate on 01-03-2023 RBC (Bld) [#/Vol] 4.87 10*6/uL 4.6-6.2 [facility] Blood hemoglobin measurement (mass/volume)Ordered By: Dr. Zarate on 01-03-2023 Hemoglobin (Bld) [Mass/Vol] 12.7 g/dL 13.0-16.5 [facility] Blood lymphocytes/100 leukoc ytesOrdered By: Dr. Zarate on 01-03-2023 Lymphocytes/100 WBC (Bld) 42.3 % 19-41 [facility] Blood manual differential co mment interpretation (narrative result)Ordered By: Dr. Zarate on 01-03-2023 Manual differential comment Gigi (Bld) [Interp] SCANNED [facility] Comment on above: LYMPHOCYTOSIS NOTED Blood monocytes/100 leukocyt esOrdered By: [address] Zarate on 01-03-2023 Monocytes/100 WBC (Bld) 7.8 % 0-10 [facility] Blood platelet mean volumeOr dered By: Dr. Zarate on 01-03-2023 Platelet mean volume (Bld) [Entitic vol] 10.6 fL 6.2-12.0 [facility] Determination of erythrocyte mean corpuscular volume (MCV)Ordered By: Dr. Zarate on 01-03-2023 MCV (RBC) [Entitic vol] 81.9 fL 80-94 [facility] Glucose Glucometer (BldC) [M ass/Vol]Ordered By: Dr. Zarate on 01-03-2023 Glucose [Mass/Vol] 383 mg/dL 74-106 [facility] Comment on above: MANAGEMENT OF PATIEN T CARE PER NURSING PROTOCOL Hematocrit Auto (Bld) [Volum e fraction]Ordered By: Dr. Zarate on 01-03-2023 Hematocrit (Bld) [Volume fraction] 39.9 % 40-54 [facility] Laboratory - Chemistry and C hemistry - challengeOrdered By: Dr. Zarate on 01-03-2023 CO2 [Moles/Vol] 23.0 mmol/L 21.0-32.0 [facility] Urea nitrogen/Creatinine [Mass ratio] 17.2 mg/mg 10-20 [facility] Laboratory - Hematology and Cell countsOrdered By: Dr. Zarate on 01-03-2023 Erythrocyte distribution width (RBC) [Entitic vol] 41.9 fL 35.1-43.9 [facility] Erythrocyte distribution width (RBC) [Ratio] 14.3 % 11.6-14.6 [facility] Immature granulocytes/100 WBC (Bld) 0.300 % 0.0-0.9 [facility] Comment on above: IG% - Immature Granu locytes (promyelocytes, myelocytes and metamyelocytes) > 1% indicates that a LEFT SHIFT is Present. MCH (RBC) [Entitic mass] 26.1 pg 27.0-32.0 [facility] Nucleated RBC/100 WBC (Bld) [Ratio] 0 % 0-5 [facility] [Mass/Vol]Or dered By: Dr. Zarate on 01-03-2023 MCHC (RBC) [Mass/Vol] 31.8 g/dL 32-36 [facility] No Panel InformationOrdered By: Dr. Zarate on 01-03-2023 Estimated Creatinine Clearance Calc 122.45 ml/min [facility] Estimated GFR (MDRD) Amer 136 mL/min >60 [facility] Comment on above: GFR Calc Estimated GFR (MDRD) Non-Af Amer 113 mL/min >60 [facility] Comment on above: Non- GFR Calc Troponin I High Sensitivity 4 pg/mL 3.0-78.0 [facility] Comment on above: Critical Result(s) C alled at: 23:19:17 01/03/2023 by: MICHAEL COUGHLIN RN (ED) Results read back by same. Please Note: New Test Units and Gender Specific Reference Ranges. For more information see Policy Stat Procedure [place] High Sensitivity Troponin (TNIH) and attachments. Platelets bldOrdered By: Dr. Zarate on 01-03-2023 Platelets (Bld) [#/Vol] 357 10*3/uL 150-450 [facility] Serum or plasma calcium koby urement (mass/volume)Ordered By: Dr. Zarate on 01-03-2023 Calcium [Mass/Vol] 8.6 mg/dL 8.5-10.1 [facility] Serum or plasma creatinine m easurement (mass/volume)Ordered By: Dr. Zarate on 01-03-2023 Creatinine [Mass/Vol] 0.87 mg/dL 0.70-1.30 [facility] Comment on above: The validity of the calculated GFR & GFRAA in patients over 70 years has not been determined. Clinical correlation is essential. Serum or plasma urea nitroge n measurement (mass/volume)Ordered By: Dr. Zarate on 01-03-2023 Urea nitrogen [Mass/Vol] 15 mg/dL 7-18 [facility] Thin prep Papanicolaou smear with manual screeningOrdered By: Dr. Zarate on 01-03-2023 Thin prep Papanicolaou smear with manual screening 12 5-15 [facility] Absolute lymphocyte countOrd ered By: Dr. Lynn on 12-09-2022 Lymphocytes Auto (Unsp spec) [#/Vol] 4.06 10*3/uL 0.83-4.51 [facility] Basophil percentageOrdered B y: Dr. Lynn on 12-09-2022 Basophils/100 WBC (Bld) 0.6 % 0-1 [facility] Chloride [Moles/Vol] 96 mmol/L 98-107 [facility] Eosinophils/100 WBC (Bld) 1.9 % 0-5 [facility] Glucose [Mass/Vol] 396 mg/dL 74-106 [facility] Comment on above: Glucose result great er than or equal to 200 mg/dLsuggests DIABETES MELLITUS per A.D.A. criteria. Neutrophils (Bld) [#/Vol] 4.6 10*3/uL 2.0-7.7 [facility] Neutrophils/100 WBC (Bld) 47.9 % 47-70 [facility] Potassium [Moles/Vol] 5.0 mmol/L 3.5-5.1 [facility] Sodium [Moles/Vol] 133 mmol/L 136-145 [facility] WBC (Bld) [#/Vol] 9.6 10*3/uL 4.4-11.0 [facility] Blood erythrocytes count (nu mber/volume)Ordered By: Dr. Lynn on 12-09-2022 RBC (Bld) [#/Vol] 6.66 10*6/uL 4.6-6.2 [facility] Blood hemoglobin measurement (mass/volume)Ordered By: Dr. Lynn on 12-09-2022 Hemoglobin (Bld) [Mass/Vol] 17.0 g/dL 13.0-16.5 [facility] Blood lymphocytes/100 leukoc ytesOrdered By: Dr. Lynn on 12-09-2022 Lymphocytes/100 WBC (Bld) 42.1 % 19-41 [facility] Blood monocytes/100 leukocyt esOrdered By: Dr. Lynn on 05-03-2023 Monocytes/100 WBC (Bld) 7.3 % 0-10 [facility] Blood platelet mean volumeOr dered By: Dr. Lynn on 12-09-2022 Platelet mean volume (Bld) [Entitic vol] 10.8 fL 6.2-12.0 [facility] Determination of erythrocyte mean corpuscular volume (MCV)Ordered By: Dr. Lynn on 12-09-2022 MCV (RBC) [Entitic vol] 79.4 fL 80-94 [facility] HCO3 (BldA) [Moles/Vol]Order ed By: Dr. Lynn on 12-09-2022 HCO3 (Bld) [Moles/Vol] 21 mmol/L 22-26 [facility] Hematocrit Auto (Bld) [Volum e fraction]Ordered By: Dr. Lynn on 12-09-2022 Hematocrit (Bld) [Volume fraction] 52.9 % 40-54 [facility] Laboratory - Chemistry and C hemistry - challengeOrdered By: Dr. Lynn on 12-09-2022 CO2 [Moles/Vol] 22 mmol/L 23-33 [facility] CO2 [Moles/Vol] 28.0 mmol/L 21.0-32.0 [facility] Natriuretic peptide B (Bld) [Mass/Vol] 2.7 pg/mL 0-100 [facility] Urea nitrogen/Creatinine [Mass ratio] 16.4 mg/mg 10-20 [facility] Laboratory - Hematology and Cell countsOrdered By: Dr. Lynn on 12-09-2022 Erythrocyte distribution width (RBC) [Entitic vol] 38.5 fL 35.1-43.9 [facility] Erythrocyte distribution width (RBC) [Ratio] 13.4 % 11.6-14.6 [facility] Immature granulocytes/100 WBC (Bld) 0.200 % 0.0-0.9 [facility] Comment on above: IG% - Immature Granu locytes (promyelocytes, myelocytes and metamyelocytes) > 1% indicates that a LEFT SHIFT is Present. MCH (RBC) [Entitic mass] 25.5 pg 27.0-32.0 [facility] Nucleated RBC/100 WBC (Bld) [Ratio] 0 % 0-5 [facility] Auto (RBC) [Mass/Vol]Or dered By: Dr. Lynn on 12-09-2022 MCHC (RBC) [Mass/Vol] 32.1 g/dL 32-36 [facility] No Panel InformationOrdered By: Dr. Lynn on 12-09-2022 Bed Mix Venous Bld PCO2 at Pat Temp 32.1 mmHg 41-51 [facility] Blood Gas Specimen Type JAIDEN [facility] Venous Blood Base Excess -3 mmol/L -1.0-3.5 [facility] D-Dimer Quantitative (PE/DVT) < 0.27 FEU/ug/m 0.27-0.49 [facility] Comment on above: NORMAL D-Dimer level (<0.50) indicates no DVT or PE. Estimated Creatinine Clearance Calc 91.04 ml/min [facility] Estimated GFR (MDRD) Amer 104 mL/min >60 [facility] Comment on above: GFR Calc Estimated GFR (MDRD) Non-Af Amer 86 mL/min >60 [facility] Comment on above: Non- GFR Calc Troponin I High Sensitivity 4 pg/mL 3.0-78.0 [facility] Comment on above: Please Note: New Nayla t Units and Gender Specific Reference Ranges. For more information see Policy Stat Procedure [place] High Sensitivity Troponin (TNIH) and attachments. PO2 venousOrdered By: Dr. Marry baxter on 12-09-2022 Oxygen (BldV) [Partial pressure] 53 mm[Hg] 25-40 [facility] Platelets bldOrdered By: Dr. Lynn on 12-09-2022 Platelets (Bld) [#/Vol] 405 10*3/uL 150-450 [facility] Serum or plasma acetone koby urement (mass/volume)Ordered By: Dr. Lynn on 12-09-2022 Acetone [Mass/Vol] Negative NEG [facility] Serum or plasma calcium koby urement (mass/volume)Ordered By: Dr. Lynn on 12-09-2022 Calcium [Mass/Vol] 10.6 mg/dL 8.5-10.1 [facility] Serum or plasma creatinine m easurement (mass/volume)Ordered By: Dr. Lynn on 12-09-2022 Creatinine [Mass/Vol] 1.10 mg/dL 0.70-1.30 [facility] Comment on above: The validity of the calculated GFR & GFRAA in patients over 70 years has not been determined. Clinical correlation is essential. Serum or plasma urea nitroge n measurement (mass/volume)Ordered By: Dr. Lynn on 12-09-2022 Urea nitrogen [Mass/Vol] 18 mg/dL 7-18 [facility] Thin prep Papanicolaou smear with manual screeningOrdered By: Dr. Lynn on 12-09-2022 Thin prep Papanicolaou smear with manual screening 9 5-15 [facility] Vital signsOrdered By: Dr. Vicky coello on 12-09-2022 Oxygen saturation in Blood 88 % 50-70 [facility] pH measurementOrdered By: Dr Shin Lynn on 12-09-2022 pH (Unsp spec) 7.43 [pH] 7.32-7.42 [facility] Absolute lymphocyte countOrd ered By: ED PROVIDER on 12-03-2022 Lymphocytes Auto (Unsp spec) [#/Vol] 3.71 10*3/uL 0.83-4.51 [facility] Basophil percentageOrdered B y: ED PROVIDER on 12-03-2022 Basophils/100 WBC (Bld) 0.4 % 0-1 [facility] Eosinophils/100 WBC (Bld) 2.0 % 0-5 [facility] Neutrophils (Bld) [#/Vol] 8.6 10*3/uL 2.0-7.7 [facility] Neutrophils/100 WBC (Bld) 62.3 % 47-70 [facility] WBC (Bld) [#/Vol] 13.8 10*3/uL 4.4-11.0 [facility] Basophil percentageOrdered B y: Dr. Calvillo on 12-03-2022 Chloride [Moles/Vol] 105 mmol/L 98-107 [facility] Glucose [Mass/Vol] 64 mg/dL 74-106 [facility] Potassium [Moles/Vol] 3.6 mmol/L 3.5-5.1 [facility] Sodium [Moles/Vol] 138 mmol/L 136-145 [facility] Blood erythrocytes count (nu mber/volume)Ordered By: ED PROVIDER on 12-03-2022 RBC (Bld) [#/Vol] 5.14 10*6/uL 4.6-6.2 [facility] Blood hemoglobin measurement (mass/volume)Ordered By: ED PROVIDER on 12-03-2022 Hemoglobin (Bld) [Mass/Vol] 13.2 g/dL 13.0-16.5 [facility] Blood lymphocytes/100 leukoc ytesOrdered By: ED PROVIDER on 12-03-2022 Lymphocytes/100 WBC (Bld) 26.9 % 19-41 [facility] Blood monocytes/100 leukocyt esOrdered By: ED PROVIDER on 12-03-2022 Monocytes/100 WBC (Bld) 8.0 % 0-10 [facility] Blood platelet mean volumeOr dered By: ED PROVIDER on 12-03-2022 Platelet mean volume (Bld) [Entitic vol] 10.9 fL 6.2-12.0 [facility] Determination of erythrocyte mean corpuscular volume (MCV)Ordered By: ED PROVIDER on 12-03-2022 MCV (RBC) [Entitic vol] 84.0 fL 80-94 [facility] Hematocrit Auto (Bld) [Volum e fraction]Ordered By: ED PROVIDER on 12-03-2022 Hematocrit (Bld) [Volume fraction] 43.2 % 40-54 [facility] Laboratory - Chemistry and C hemistry - challengeOrdered By: Dr. Calvillo on 12-03-2022 CO2 [Moles/Vol] 28.0 mmol/L 21.0-32.0 [facility] Urea nitrogen/Creatinine [Mass ratio] 16.6 mg/mg 10-20 [facility] Laboratory - Hematology and Cell countsOrdered By: ED PROVIDER on 12-03-2022 Erythrocyte distribution width (RBC) [Entitic vol] 41.1 fL 35.1-43.9 [facility] Erythrocyte distribution width (RBC) [Ratio] 13.4 % 11.6-14.6 [facility] Immature granulocytes/100 WBC (Bld) 0.400 % 0.0-0.9 [facility] Comment on above: IG% - Immature Granu locytes (promyelocytes, myelocytes and metamyelocytes) > 1% indicates that a LEFT SHIFT is Present. MCH (RBC) [Entitic mass] 25.7 pg 27.0-32.0 [facility] Nucleated RBC/100 WBC (Bld) [Ratio] 0 % 0-5 [facility] MCHC Auto (RBC) [Mass/Vol]Or dered By: ED PROVIDER on 12-03-2022 MCHC (RBC) [Mass/Vol] 30.6 g/dL 32-36 [facility] No Panel InformationOrdered By: Dr. Calvillo on 12-03-2022 D-Dimer Quantitative (PE/DVT) 0.40 FEU/ug/m 0.27-0.49 [facility] Comment on above: NORMAL D-Dimer level (<0.50) indicates no DVT or PE. Estimated Creatinine Clearance Calc 159.00 ml/min [facility] Estimated GFR (MDRD) Amer 187 mL/min >60 [facility] Comment on above: GFR Calc Estimated GFR (MDRD) Non-Af Amer 155 mL/min >60 [facility] Comment on above: Non- GFR Calc Troponin I High Sensitivity 3 pg/mL 3.0-78.0 [facility] Comment on above: Please Note: New Nayla t Units and Gender Specific Reference Ranges. For more information see Policy Stat Procedure [place] High Sensitivity Troponin (TNIH) and attachments. Platelets bldOrdered By: ED PROVIDER on 12-03-2022 Platelets (Bld) [#/Vol] 348 10*3/uL 150-450 [facility] Serum or plasma calcium koby urement (mass/volume)Ordered By: Dr. Calvillo on 12-03-2022 Calcium [Mass/Vol] 8.9 mg/dL 8.5-10.1 [facility] Serum or plasma creatinine m easurement (mass/volume)Ordered By: Dr. Calvillo on 12-03-2022 Creatinine [Mass/Vol] 0.66 mg/dL 0.70-1.30 [facility] Comment on above: The validity of the calculated GFR & GFRAA in patients over 70 years has not been determined. Clinical correlation is essential. Serum or plasma urea nitroge n measurement (mass/volume)Ordered By: Dr. Calvillo on 12-03-2022 Urea nitrogen [Mass/Vol] 11 mg/dL 7-18 [facility] Thin prep Papanicolaou smear with manual screeningOrdered By: Dr. Calvillo on 12-03-2022 Thin prep Papanicolaou smear with manual screening 5 5-15 [facility] Absolute lymphocyte countOrd ered By: ED PROVIDER on 11-17-2022 Lymphocytes Auto (Unsp spec) [#/Vol] 4.55 10*3/uL 0.83-4.51 [facility] Basophil percentageOrdered B y: ED PROVIDER on 11-17-2022 Basophils/100 WBC (Bld) 0.5 % 0-1 [facility] Chloride [Moles/Vol] 103 mmol/L 98-107 [facility] Eosinophils/100 WBC (Bld) 2.8 % 0-5 [facility] Glucose [Mass/Vol] 278 mg/dL 74-106 [facility] Comment on above: Glucose result great er than or equal to 200 mg/dLsuggests DIABETES MELLITUS per A.D.A. criteria. Neutrophils (Bld) [#/Vol] 5.8 10*3/uL 2.0-7.7 [facility] Neutrophils/100 WBC (Bld) 49.8 % 47-70 [facility] Potassium [Moles/Vol] 3.8 mmol/L 3.5-5.1 [facility] Sodium [Moles/Vol] 134 mmol/L 136-145 [facility] WBC (Bld) [#/Vol] 11.7 10*3/uL 4.4-11.0 [facility] Blood erythrocytes count (nu mber/volume)Ordered By: ED PROVIDER on 11-17-2022 RBC (Bld) [#/Vol] 5.10 10*6/uL 4.6-6.2 [facility] Blood hemoglobin measurement (mass/volume)Ordered By: ED PROVIDER on 11-17-2022 Hemoglobin (Bld) [Mass/Vol] 13.3 g/dL 13.0-16.5 [facility] Blood lymphocytes/100 leukoc ytesOrdered By: ED PROVIDER on 11-17-2022 Lymphocytes/100 WBC (Bld) 38.9 % 19-41 [facility] Blood monocytes/100 leukocyt esOrdered By: ED PROVIDER on 11-17-2022 Monocytes/100 WBC (Bld) 7.7 % 0-10 [facility] Blood platelet mean volumeOr dered By: ED PROVIDER on 11-17-2022 Platelet mean volume (Bld) [Entitic vol] 10.9 fL 6.2-12.0 [facility] Determination of erythrocyte mean corpuscular volume (MCV)Ordered By: ED PROVIDER on 11-17-2022 MCV (RBC) [Entitic vol] 80.6 fL 80-94 [facility] Hematocrit Auto (Bld) [Volum e fraction]Ordered By: ED PROVIDER on 11-17-2022 Hematocrit (Bld) [Volume fraction] 41.1 % 40-54 [facility] Laboratory - Chemistry and C hemistry - challengeOrdered By: ED PROVIDER on 11-17-2022 CO2 [Moles/Vol] 26.0 mmol/L 21.0-32.0 [facility] Urea nitrogen/Creatinine [Mass ratio] 17.0 mg/mg 10-20 [facility] Laboratory - Hematology and Cell countsOrdered By: ED PROVIDER on 11-17-2022 Erythrocyte distribution width (RBC) [Entitic vol] 37.6 fL 35.1-43.9 [facility] Erythrocyte distribution width (RBC) [Ratio] 12.8 % 11.6-14.6 [facility] Immature granulocytes/100 WBC (Bld) 0.300 % 0.0-0.9 [facility] Comment on above: IG% - Immature Granu locytes (promyelocytes, myelocytes and metamyelocytes) > 1% indicates that a LEFT SHIFT is Present. MCH (RBC) [Entitic mass] 26.1 pg 27.0-32.0 [facility] Nucleated RBC/100 WBC (Bld) [Ratio] 0 % 0-5 [facility] MCHC Auto (RBC) [Mass/Vol]Or dered By: ED PROVIDER on 11-17-2022 MCHC (RBC) [Mass/Vol] 32.4 g/dL 32-36 [facility] No Panel InformationOrdered By: ED PROVIDER on 11-17-2022 Estimated Creatinine Clearance Calc 127.57 ml/min [facility] Estimated GFR (MDRD) Amer 159 mL/min >60 [facility] Comment on above: GFR Calc Estimated GFR (MDRD) Non-Af Amer 131 mL/min >60 [facility] Comment on above: Non- GFR Calc Troponin I High Sensitivity < 3 pg/mL 3.0-78.0 [facility] Comment on above: Please Note: New Nayla t Units and Gender Specific Reference Ranges. For more information see Policy Stat Procedure [place] High Sensitivity Troponin (TNIH) and attachments. Platelets bldOrdered By: ED PROVIDER on 11-17-2022 Platelets (Bld) [#/Vol] 304 10*3/uL 150-450 [facility] Serum or plasma calcium koby urement (mass/volume)Ordered By: ED PROVIDER on 11-17-2022 Calcium [Mass/Vol] 9.1 mg/dL 8.5-10.1 [facility] Serum or plasma creatinine m easurement (mass/volume)Ordered By: ED PROVIDER on 11-17-2022 Creatinine [Mass/Vol] 0.76 mg/dL 0.70-1.30 [facility] Comment on above: The validity of the calculated GFR & GFRAA in patients over 70 years has not been determined. Clinical correlation is essential. Serum or plasma urea nitroge n measurement (mass/volume)Ordered By: ED PROVIDER on 11-17-2022 Urea nitrogen [Mass/Vol] 13 mg/dL 7-18 [facility] Thin prep Papanicolaou smear with manual screeningOrdered By: ED PROVIDER on 11-17-2022 Thin prep Papanicolaou smear with manual screening 5 5-15 [facility] Absolute lymphocyte countOrd ered By: Dr. Palomino on 10-13-2022 Lymphocytes Auto (Unsp spec) [#/Vol] 3.87 10*3/uL 0.83-4.51 [facility] Basophil percentageOrdered B y: Dr. Palomino on 10-13-2022 Basophils/100 WBC (Bld) 0.8 % 0-1 [facility] Chloride [Moles/Vol] 105 mmol/L 98-107 [facility] Eosinophils/100 WBC (Bld) 4.3 % 0-5 [facility] Glucose [Mass/Vol] 243 mg/dL 74-106 [facility] Comment on above: Glucose result great er than or equal to 200 mg/dLsuggests DIABETES MELLITUS per A.D.A. criteria. Neutrophils (Bld) [#/Vol] 3.8 10*3/uL 2.0-7.7 [facility] Neutrophils/100 WBC (Bld) 43.5 % 47-70 [facility] Potassium [Moles/Vol] 3.4 mmol/L 3.5-5.1 [facility] Sodium [Moles/Vol] 140 mmol/L 136-145 [facility] WBC (Bld) [#/Vol] 8.8 10*3/uL 4.4-11.0 [facility] Blood erythrocytes count (nu mber/volume)Ordered By: Dr. Palomino on 10-13-2022 RBC (Bld) [#/Vol] 5.14 10*6/uL 4.6-6.2 [facility] Blood hemoglobin measurement (mass/volume)Ordered By: Dr. Palomino on 10-13-2022 Hemoglobin (Bld) [Mass/Vol] 13.3 g/dL 13.0-16.5 [facility] Blood lymphocytes/100 leukoc ytesOrdered By: Dr. Palomino on 10-13-2022 Lymphocytes/100 WBC (Bld) 44.1 % 19-41 [facility] Blood monocytes/100 leukocyt esOrdered By: Dr. Palomino on 10-13-2022 Monocytes/100 WBC (Bld) 7.2 % 0-10 [facility] Blood platelet mean volumeOr dered By: Dr. Palomino on 10-13-2022 Platelet mean volume (Bld) [Entitic vol] 10.4 fL 6.2-12.0 [facility] Determination of erythrocyte mean corpuscular volume (MCV)Ordered By: Dr. Palomino on 10-13-2022 MCV (RBC) [Entitic vol] 83.7 fL 80-94 [facility] Hematocrit Auto (Bld) [Volum e fraction]Ordered By: Dr. Palomino on 10-13-2022 Hematocrit (Bld) [Volume fraction] 43.0 % 40-54 [facility] Laboratory - Chemistry and C hemistry - challengeOrdered By: Dr. Palomino on 10-13-2022 CO2 [Moles/Vol] 27.0 mmol/L 21.0-32.0 [facility] Urea nitrogen/Creatinine [Mass ratio] 13.8 mg/mg 10-20 [facility] Laboratory - Hematology and Cell countsOrdered By: Dr. Palomino on 10-13-2022 Erythrocyte distribution width (RBC) [Entitic vol] 41.9 fL 35.1-43.9 [facility] Erythrocyte distribution width (RBC) [Ratio] 13.6 % 11.6-14.6 [facility] Immature granulocytes/100 WBC (Bld) 0.100 % 0.0-0.9 [facility] Comment on above: IG% - Immature Granu locytes (promyelocytes, myelocytes and metamyelocytes) > 1% indicates that a LEFT SHIFT is Present. MCH (RBC) [Entitic mass] 25.9 pg 27.0-32.0 [facility] Nucleated RBC/100 WBC (Bld) [Ratio] 0 % 0-5 [facility] MCHC Auto (RBC) [Mass/Vol]Or dered By: Dr. Palomino on 10-13-2022 MCHC (RBC) [Mass/Vol] 30.9 g/dL 32-36 [facility] No Panel InformationOrdered By: Dr. Palomino on 10-13-2022 Estimated Creatinine Clearance Calc 131.33 ml/min [facility] Estimated GFR (MDRD) Amer 169 mL/min >60 [facility] Comment on above: GFR Calc Estimated GFR (MDRD) Non-Af Amer 140 mL/min >60 [facility] Comment on above: Non- GFR Calc Troponin I High Sensitivity 4 pg/mL 3.0-78.0 [facility] Comment on above: Please Note: New Nayla t Units and Gender Specific Reference Ranges. For more information see Policy Stat Procedure [place] High Sensitivity Troponin (TNIH) and attachments. Platelets bldOrdered By: Dr. Palomino on 10-13-2022 Platelets (Bld) [#/Vol] 309 10*3/uL 150-450 [facility] Serum or plasma calcium koby urement (mass/volume)Ordered By: Dr. Palomino on 10-13-2022 Calcium [Mass/Vol] 8.8 mg/dL 8.5-10.1 [facility] Serum or plasma creatinine m easurement (mass/volume)Ordered By: Dr. Palomino on 10-13-2022 Creatinine [Mass/Vol] 0.72 mg/dL 0.70-1.30 [facility] Comment on above: The validity of the calculated GFR & GFRAA in patients over 70 years has not been determined. Clinical correlation is essential. Serum or plasma urea nitroge n measurement (mass/volume)Ordered By: Dr. Palomino on 10-13-2022 Urea nitrogen [Mass/Vol] 10 mg/dL 7-18 [facility] Thin prep Papanicolaou smear with manual screeningOrdered By: Dr. Palomino on 10-13-2022 Thin prep Papanicolaou smear with manual screening 8 5-15 [facility] Absolute lymphocyte countOrd ered By: Dr. Reed on 08-24-2022 Lymphocytes Auto (Unsp spec) [#/Vol] 5.98 10*3/uL 0.83-4.51 [facility] Basophil percentageOrdered B y: Dr. Reed on 08-24-2022 Basophils/100 WBC (Bld) 0.3 % 0-1 [facility] Chloride [Moles/Vol] 103 mmol/L 98-107 [facility] Eosinophils/100 WBC (Bld) 5.5 % 0-5 [facility] Glucose [Mass/Vol] 52 mg/dL 74-106 [facility] Neutrophils (Bld) [#/Vol] 3.8 10*3/uL 2.0-7.7 [facility] Neutrophils/100 WBC (Bld) 30.5 % 47-70 [facility] Potassium [Moles/Vol] 3.0 mmol/L 3.5-5.1 [facility] Sodium [Moles/Vol] 142 mmol/L 136-145 [facility] WBC (Bld) [#/Vol] 12.6 10*3/uL 4.4-11.0 [facility] Blood erythrocytes count (nu mber/volume)Ordered By: Dr. Reed on 08-24-2022 RBC (Bld) [#/Vol] 5.40 10*6/uL 4.6-6.2 [facility] Blood hemoglobin measurement (mass/volume)Ordered By: Dr. Reed on 08-24-2022 Hemoglobin (Bld) [Mass/Vol] 14.0 g/dL 13.0-16.5 [facility] Blood lymphocytes/100 leukoc ytesOrdered By: Dr. Reed on 08-24-2022 Lymphocytes/100 WBC (Bld) 47.4 % 19-41 [facility] Blood manual differential co mment interpretation (narrative result)Ordered By: Dr. Reed on 08-24-2022 Manual differential comment Gigi (Bld) [Interp] SCANNED [facility] Blood monocytes/100 leukocyt esOrdered By: Dr. Reed on 08-24-2022 Monocytes/100 WBC (Bld) 16.0 % 0-10 [facility] Blood platelet mean volumeOr dered By: Dr. Reed on 08-24-2022 Platelet mean volume (Bld) [Entitic vol] 10.5 fL 6.2-12.0 [facility] Determination of erythrocyte mean corpuscular volume (MCV)Ordered By: Dr. Reed on 08-24-2022 MCV (RBC) [Entitic vol] 81.5 fL 80-94 [facility] Hematocrit Auto (Bld) [Volum e fraction]Ordered By: Dr. Reed on 08-24-2022 Hematocrit (Bld) [Volume fraction] 44.0 % 40-54 [facility] Laboratory - Chemistry and C hemistry - challengeOrdered By: Dr. Reed on 08-24-2022 CO2 [Moles/Vol] 32.0 mmol/L 21.0-32.0 [facility] Urea nitrogen/Creatinine [Mass ratio] 16.8 mg/mg 10-20 [facility] Laboratory - Hematology and Cell countsOrdered By: Dr. Reed on 08-24-2022 Erythrocyte distribution width (RBC) [Entitic vol] 40.7 fL 35.1-43.9 [facility] Erythrocyte distribution width (RBC) [Ratio] 14.0 % 11.6-14.6 [facility] Immature granulocytes/100 WBC (Bld) 0.300 % 0.0-0.9 [facility] Comment on above: IG% - Immature Granu locytes (promyelocytes, myelocytes and metamyelocytes) > 1% indicates that a LEFT SHIFT is Present. MCH (RBC) [Entitic mass] 25.9 pg 27.0-32.0 [facility] Nucleated RBC/100 WBC (Bld) [Ratio] 0 % 0-5 [facility] Auto (RBC) [Mass/Vol]Or dered By: Dr. Reed on 08-24-2022 MCHC (RBC) [Mass/Vol] 31.8 g/dL 32-36 [facility] Comment on above: Delta: 33.6 on 08/20-0407 No Panel InformationOrdered By: Dr. Reed on 08-24-2022 Estimated Creatinine Clearance Calc 143.27 ml/min [facility] Estimated GFR (MDRD) Amer 190 mL/min >60 [facility] Comment on above: GFR Calc Estimated GFR (MDRD) Non-Af Amer 157 mL/min >60 [facility] Comment on above: Non- GFR Calc Reactive Lymphocytes 1+ [facility] Platelets bldOrdered By: Dr. Reed on 08-24-2022 Platelets (Bld) [#/Vol] 492 10*3/uL 150-450 [facility] Review by pathologistOrdered By: Dr. Reed on 08-24-2022 Pathologist review Gigi (Unsp spec) [Interp] Louisa wiseman [facility] Pathologist review Gigi (Unsp spec) [Interp] Reviewed [facility] Comment on above: Previous reported re sult: Louisa wiseman Edited by: [email or web address] on 08/26/22:0938Leukocytosis. Thrombocytosis.Clinical correlation necessary.Herson Olivas M.D. 08/26/22 AMENDED REPORT 08/26/22 0938 PATH REV previously reported as: Louisa wiseman Serum or plasma calcium koby urement (mass/volume)Ordered By: Dr. Reed on 08-24-2022 Calcium [Mass/Vol] 9.4 mg/dL 8.5-10.1 [facility] Serum or plasma creatinine m easurement (mass/volume)Ordered By: Dr. Reed on 08-24-2022 Creatinine [Mass/Vol] 0.66 mg/dL 0.70-1.30 [facility] Comment on above: The validity of the calculated GFR & GFRAA in patients over 70 years has not been determined. Clinical correlation is essential. Serum or plasma urea nitroge n measurement (mass/volume)Ordered By: Dr. Reed on 08-24-2022 Urea nitrogen [Mass/Vol] 11 mg/dL 7-18 [facility] Thin prep Papanicolaou smear with manual screeningOrdered By: Dr. Reed on 08-24-2022 Thin prep Papanicolaou smear with manual screening 7 5-15 [facility] Absolute lymphocyte countOrd ered By: Dr. Cruz on 08-20-2022 Lymphocytes Auto (Unsp spec) [#/Vol] 3.61 10*3/uL 0.83-4.51 [facility] Basophil percentageOrdered B y: Dr. Cruz on 08-20-2022 Basophils/100 WBC (Bld) 0.2 % 0-1 [facility] Chloride [Moles/Vol] 104 mmol/L 98-107 [facility] Eosinophils/100 WBC (Bld) 0.2 % 0-5 [facility] Glucose [Mass/Vol] 162 mg/dL 74-106 [facility] Comment on above: Fasting Glucose resu lt greater than or equal to 126 mg/dL suggests DIABETES MELLITUS per A.D.A. criteria. Neutrophils (Bld) [#/Vol] 7.8 10*3/uL 2.0-7.7 [facility] Neutrophils/100 WBC (Bld) 60.1 % 47-70 [facility] Potassium [Moles/Vol] 3.0 mmol/L 3.5-5.1 [facility] Sodium [Moles/Vol] 141 mmol/L 136-145 [facility] WBC (Bld) [#/Vol] 13.0 10*3/uL 4.4-11.0 [facility] Blood erythrocytes count (nu mber/volume)Ordered By: Dr. Cruz on 08-20-2022 RBC (Bld) [#/Vol] 4.34 10*6/uL 4.6-6.2 [facility] Blood hemoglobin measurement (mass/volume)Ordered By: Dr. Cruz on 08-20-2022 Hemoglobin (Bld) [Mass/Vol] 11.7 g/dL 13.0-16.5 [facility] Blood lymphocytes/100 leukoc ytesOrdered By: Dr. Cruz on 08-20-2022 Lymphocytes/100 WBC (Bld) 27.7 % 19-41 [facility] Blood monocytes/100 leukocyt esOrdered By: Dr. Cruz on 08-20-2022 Monocytes/100 WBC (Bld) 11.4 % 0-10 [facility] Blood platelet mean volumeOr dered By: Dr. Cruz on 08-20-2022 Platelet mean volume (Bld) [Entitic vol] 10.1 fL 6.2-12.0 [facility] Determination of erythrocyte mean corpuscular volume (MCV)Ordered By: Dr. Cruz on 08-20-2022 MCV (RBC) [Entitic vol] 80.2 fL 80-94 [facility] Glucose Glucometer (dC) [M ass/Vol]Ordered By: Dr. Cruz on 08-20-2022 Glucose [Mass/Vol] 120 mg/dL 74-106 [facility] Comment on above: MANAGEMENT OF PATIEN T CARE PER NURSING PROTOCOL Hematocrit Auto (Bld) [Volum e fraction]Ordered By: Dr. Cruz on 08-20-2022 Hematocrit (Bld) [Volume fraction] 34.8 % 40-54 [facility] Laboratory - Chemistry and C hemistry - challengeOrdered By: Dr. Cruz on 08-20-2022 CO2 [Moles/Vol] 31.0 mmol/L 21.0-32.0 [facility] Urea nitrogen/Creatinine [Mass ratio] 18.1 mg/mg 10-20 [facility] Laboratory - Hematology and Cell countsOrdered By: Dr. Cruz on 08-20-2022 Erythrocyte distribution width (RBC) [Entitic vol] 42.3 fL 35.1-43.9 [facility] Erythrocyte distribution width (RBC) [Ratio] 14.5 % 11.6-14.6 [facility] Immature granulocytes/100 WBC (Bld) 0.400 % 0.0-0.9 [facility] Comment on above: IG% - Immature Granu locytes (promyelocytes, myelocytes and metamyelocytes) > 1% indicates that a LEFT SHIFT is Present. MCH (RBC) [Entitic mass] 27.0 pg 27.0-32.0 [facility] Nucleated RBC/100 WBC (Bld) [Ratio] 0 % 0-5 [facility] MCHC Auto (RBC) [Mass/Vol]Or dered By: Dr. Cruz on 08-20-2022 MCHC (RBC) [Mass/Vol] 33.6 g/dL 32-36 [facility] No Panel InformationOrdered By: Dr. Cruz on 08-20-2022 Estimated Creatinine Clearance Calc 189.05 ml/min [facility] Estimated GFR (MDRD) Amer 232 mL/min >60 [facility] Comment on above: GFR Calc Estimated GFR (MDRD) Non-Af Amer 191 mL/min >60 [facility] Comment on above: Non- GFR Calc Platelets bldOrdered By: Dr. Cruz on 08-20-2022 Platelets (Bld) [#/Vol] 254 10*3/uL 150-450 [facility] Serum or plasma calcium koby urement (mass/volume)Ordered By: Dr. Cruz on 08-20-2022 Calcium [Mass/Vol] 8.0 mg/dL 8.5-10.1 [facility] Serum or plasma creatinine m easurement (mass/volume)Ordered By: Dr. Cruz on 08-20-2022 Creatinine [Mass/Vol] 0.55 mg/dL 0.70-1.30 [facility] Comment on above: The validity of the calculated GFR & GFRAA in patients over 70 years has not been determined. Clinical correlation is essential. Serum or plasma urea nitroge n measurement (mass/volume)Ordered By: Dr. Cruz on 08-20-2022 Urea nitrogen [Mass/Vol] 10 mg/dL 7-18 [facility] Thin prep Papanicolaou smear with manual screeningOrdered By: Dr. Cruz on 08-20-2022 Thin prep Papanicolaou smear with manual screening 6 5-15 [facility] Throat Streptococcus pyogene s antigen detection by immunofluorescenceOrdered By: Dr. Cruz on 08-20-2022 S. pyogenes Ag IF Ql (Throat) [facility] Review by pathologistOrdered By: Dr. Cruz on 08-19-2022 Pathologist review Gigi (Unsp spec) [Interp] Reviewed [facility] Comment on above: Previous reported re sult: Louisa wiseman Edited by: LISBETHOD on 08/20/22:0931Neutrophilic leukocytosis.Clinical correlation necessary.Herson Olivas M.D. 08/20/22 AMENDED REPORT 08/20/22 0931 PATH REV previously reported as: December bowen Basophil percentageOrdered B y: Dr. Handy on 08-18-2022 Lactate [Moles/Vol] 1.2 mmol/L 0.4-2.0 [facility] Basophil percentage 7.9 mg/dL 2.5-4.9 [facility] Basophil percentageOrdered B y: Dr. rCuz on 08-18-2022 Basophil percentage 0 SEEN /hpf 0-5 [facility] Bilirubin [Mass/Vol] 0.70 mg/dL 0.20-1.00 [facility] Comment on above: For patients on eltr ombopag therapy, use of Dimension [place] TBIL is not recommended. Protein [Mass/Vol] 7.2 g/dL 6.4-8.2 [facility] Bilirubin Test strip Ql (U)O rdered By: Dr. Cruz on 08-18-2022 Bilirubin Ql (U) Negative Negative [facility] Blood manual differential co mment interpretation (narrative result)Ordered By: Dr. Handy on 08-18-2022 Manual differential comment Gigi (Bld) [Interp] SCANNED [facility] Direct bilirubinOrdered By: Dr. Cruz on 08-18-2022 Bilirubin.direct [Mass/Vol] 0.13 mg/dL 0.00-0.30 [facility] HCO3 (BldA) [Moles/Vol]Order ed By: Dr. Cruz on 08-18-2022 HCO3 (Bld) [Moles/Vol] 4 mmol/L 22- [facility] Ketones Test strip Ql (U)Ord ered By: Dr. Cruz on 08-18-2022 Ketones Ql (U) 150 mg/dl Negative [facility] Comment on above: CRITICAL VALUE *HCRI TICAL VALUE VERIFIED. CALLED TO JOSE CARLOS ROGERS (ICU)08/18/22 1516 Walt Hoff.RESULTS READ BACK BY SAME. Laboratory - Chemistry and C hemistry - challengeOrdered By: Dr. Cruz on 08-18-2022 ALP [Catalytic activity/Vol] 178 U/L 45-117 [facility] ALT [Catalytic activity/Vol] 18 U/L 16-61 [facility] Globulin (S) [Mass/Vol] 4.0 g/dL 2.2-4.2 [facility] Laboratory - Chemistry and C hemistry - challengeOrdered By: Dr. Handy on 08-18-2022 Lipase [Catalytic activity/Vol] 34 U/L 73-393 [facility] Magnesium [Mass/Vol] 3.2 mg/dL 1.6-2.6 [facility] Laboratory - Microbiology an d Antimicrobial susceptibilityOrdered By: Dr. Cruz on 08-18-2022 SARS-CoV-2 (COVID-19) RNA LM+probe Ql (Unsp spec) Not detected Not Detect [facility] Comment on above: Normal Reference Ran ge: Not DetectedMethod:(RT-PCR) real-time reverse transcriptase PCRLuminex Thereson S.p.A. Instrument*The Food and Drug Administration (FDA) has issued an Emergency Use Authorization (EAU) for the Thereson S.p.A. SARS-CoV-2 Assay for the rapid detection of [...] and RNA 12b panel LM+probe (Unsp spec) [facility] Mucus LM Ql (Urine sed)Order ed By: Dr. Cruz on 08-18-2022 Mucus Ql (Urine sed) 0 SEEN /hpf [facility] Nitrite Test strip Ql (U)Ord ered By: Dr. Cruz on 08-18-2022 Nitrite Ql (U) Negative Negative [facility] No Panel InformationOrdered By: Dr. Cruz on 08-18-2022 Bed Mix Venous Bld PCO2 at Pat Temp 13.9 mmHg 41-51 [facility] Bld Gas Crit Called To/Read Back By Yes [facility] Blood Gas Notified Time 10:17:05 [facility] Blood Gas Notified Whom anna marie Medina [facility] Blood Gas Specimen Type JAIDEN [facility] Oxygen Delivery Device Room Air [facility] Venous Blood Base Excess -25 mmol/L -1.0-3.5 [facility] Venous Blood Total Carbon Dioxide < 5 mmol/L 23-33 [facility] PO2 venousOrdered By: Dr. David guillory on 08-18-2022 Oxygen (BldV) [Partial pressure] 64 mm[Hg] 25-40 [facility] Protein Test strip Ql (U)Ord ered By: Dr. Cruz on 08-18-2022 Protein Ql (U) 15 mg/dl Negative [facility] Serum or plasma acetone koby urement (mass/volume)Ordered By: Dr. Handy on 08-18-2022 Acetone [Mass/Vol] LARGE NEG [facility] Serum or plasma albumin koby urement (mass/volume)Ordered By: Dr. Cruz on 08-18-2022 Albumin [Mass/Vol] 3.2 g/dL 3.2-5.0 [facility] Squamous epithelial cells de tection in urine sediment by light microscopyOrdered By: Dr. Cruz on 08-18-2022 Epithelial cells.squamous LM Ql (Urine sed) 0 SEEN /hpf 0-5 [facility] Thin prep Papanicolaou smear with manual screeningOrdered By: Dr. Cruz on 08-18-2022 Thin prep Papanicolaou smear with manual screening 3 U/L 15-37 [facility] Urine blood detectionOrdered By: Dr. Cruz on 08-18-2022 RBC Ql (U) Negative Negative [facility] RBC Ql (U) 0 SEEN /hpf 0-5 [facility] Urine clarityOrdered By: Dr. Cruz on 08-18-2022 Clarity (U) Clear Clear [facility] Urine color determinationOrd ered By: Dr. Cruz on 08-18-2022 Color (U) Straw Yellow [facility] Urine glucose detectionOrder ed By: Dr. Cruz on 08-18-2022 Glucose Ql (U) 1000 mg/dl Normal [facility] Urine leukocyte esterase det ection by dipstickOrdered By: Dr. Cruz on 08-18-2022 Leukocyte esterase Test strip Ql (U) Negative Negative [facility] Urine pHOrdered By: Dr. Karla green on 08-18-2022 pH (U) 5.0 [pH] 5.0 - 8.0 [facility] Urine sediment bacteria coun t by microscopy (number/high power field)Ordered By: Dr. Cruz on 08-18-2022 Bacteria LM.HPF (Urine sed) [#/Area] 0 /[HPF] None Seen [facility] Urine specific gravity measu rementOrdered By: Dr. Cruz on 08-18-2022 Specific gravity (U) [Rel density] 1.020 1.002-1.03 0 [facility] Urobilinogen Auto test strip Ql (U)Ordered By: Dr. Cruz on 08-18-2022 Urobilinogen Ql (U) Normal mg/dl Normal [facility] Vital signsOrdered By: Dr. Bladimir hernandez on 08-18-2022 Oxygen saturation in Blood 84 % 50-70 [facility] Whole blood hemoglobin A1c/t otal hemoglobin ratio (mass fraction)Ordered By: Dr. Handy on 08-18-2022 HbA1c (Bld) [Mass fraction] 10.7 % 3.8-5.6 [facility] Comment on above: Normal < 5.7 % Predi abetic 5.7 - 6.4 % Diabetic >or= 6.5 % Please note range changes. pH measurementOrdered By: Dr Shin Cruz on 08-18-2022 pH (Unsp spec) 7.10 [pH] 7.32-7.42 [facility] Absolute lymphocyte countOrd ered By: Lourdes Metz on 07-07-2022 Lymphocytes Auto (Unsp spec) [#/Vol] 1.75 10*3/uL 0.83-4.51 [facility] Basophil percentageOrdered B y: Lourdes Metz on 07-07-2022 Basophils/100 WBC (Bld) 0.4 % 0-1 [facility] Chloride [Moles/Vol] 95 mmol/L 98-107 [facility] Eosinophils/100 WBC (Bld) 0.4 % 0-5 [facility] Glucose [Mass/Vol] 376 mg/dL 74-106 [facility] Comment on above: Glucose result great er than or equal to 200 mg/dLsuggests DIABETES MELLITUS per A.D.A. criteria. Neutrophils (Bld) [#/Vol] 4.7 10*3/uL 2.0-7.7 [facility] Neutrophils/100 WBC (Bld) 62.7 % 47-70 [facility] Potassium [Moles/Vol] 3.6 mmol/L 3.5-5.1 [facility] Sodium [Moles/Vol] 133 mmol/L 136-145 [facility] WBC (Bld) [#/Vol] 7.5 10*3/uL 4.4-11.0 [facility] Blood erythrocytes count (nu mber/volume)Ordered By: Lourdes Metz on 07-07-2022 RBC (Bld) [#/Vol] 5.38 10*6/uL 4.6-6.2 [facility] Blood hemoglobin measurement (mass/volume)Ordered By: Lourdes Metz on 07-07-2022 Hemoglobin (Bld) [Mass/Vol] 14.3 g/dL 13.0-16.5 [facility] Blood lymphocytes/100 leukoc ytesOrdered By: Lourdes Metz on 07-07-2022 Lymphocytes/100 WBC (Bld) 23.2 % 19-41 [facility] Blood monocytes/100 leukocyt esOrdered By: Lourdes Metz on 07-07-2022 Monocytes/100 WBC (Bld) 13.0 % 0-10 [facility] Blood platelet mean volumeOr dered By: Lourdes Metz on 07-07-2022 Platelet mean volume (Bld) [Entitic vol] 11.2 fL 6.2-12.0 [facility] Determination of erythrocyte mean corpuscular volume (MCV)Ordered By: Lourdes Metz on 07-07-2022 MCV (RBC) [Entitic vol] 81.0 fL 80-94 [facility] Glucose Glucometer (BldC) [M ass/Vol]Ordered By: Dr. Mcclain on 07-07-2022 Glucose [Mass/Vol] 158 mg/dL 74-106 [facility] Comment on above: MANAGEMENT OF PATIEN T CARE PER NURSING PROTOCOL Hematocrit Auto (Bld) [Volum e fraction]Ordered By: Lourdes Metz on 07-07-2022 Hematocrit (Bld) [Volume fraction] 43.6 % 40-54 [facility] Influenza virus A and B and SARS-CoV-2 (COVID-19) Ag panel - Upper respiratory specimOrdered By: Lourdes Metz on 07-07-2022 SARS-CoV-2 & FLU Antigen (Rapid) SARS-CoV-2 (COVID 19) [facility] Laboratory - Chemistry and C hemistry - challengeOrdered By: Lourdes Metz on 07-07-2022 CO2 [Moles/Vol] 29.0 mmol/L 21.0-32.0 [facility] Urea nitrogen/Creatinine [Mass ratio] 10.0 mg/mg 10-20 [facility] Laboratory - Hematology and Cell countsOrdered By: Lourdes Metz on 07-07-2022 Erythrocyte distribution width (RBC) [Entitic vol] 41.0 fL 35.1-43.9 [facility] Erythrocyte distribution width (RBC) [Ratio] 14.0 % 11.6-14.6 [facility] Immature granulocytes/100 WBC (Bld) 0.300 % 0.0-0.9 [facility] Comment on above: IG% - Immature Granu locytes (promyelocytes, myelocytes and metamyelocytes) > 1% indicates that a LEFT SHIFT is Present. MCH (RBC) [Entitic mass] 26.6 pg 27.0-32.0 [facility] Nucleated RBC/100 WBC (Bld) [Ratio] 0 % 0-5 [facility] MCHC Auto (RBC) [Mass/Vol]Or dered By: Lourdes Metz on 07-07-2022 MCHC (RBC) [Mass/Vol] 32.8 g/dL 32-36 [facility] No Panel InformationOrdered By: Lourdes Metz on 07-07-2022 D-Dimer Quantitative (PE/DVT) 0.28 FEU/ug/m 0.27-0.49 [facility] Comment on above: NORMAL D-Dimer level (<0.50) indicates no DVT or PE. Estimated Creatinine Clearance Calc 109.25 ml/min [facility] Estimated GFR (MDRD) Amer 117 mL/min >60 [facility] Comment on above: GFR Calc Estimated GFR (MDRD) Non-Af Amer 97 mL/min >60 [facility] Comment on above: Non- GFR Calc Troponin I High Sensitivity 4 pg/mL 3.0-78.0 [facility] Comment on above: Please Note: New Nayla t Units and Gender Specific Reference Ranges. For more information see Policy Stat Procedure [place] High Sensitivity Troponin (TNIH) and attachments. Platelets bldOrdered By: Graham Metz on 07-07-2022 Platelets (Bld) [#/Vol] 260 10*3/uL 150-450 [facility] Serum or plasma calcium koby urement (mass/volume)Ordered By: Lourdes Metz on 07-07-2022 Calcium [Mass/Vol] 8.8 mg/dL 8.5-10.1 [facility] Serum or plasma creatinine m easurement (mass/volume)Ordered By: Lourdes Metz on 07-07-2022 Creatinine [Mass/Vol] 1.00 mg/dL 0.70-1.30 [facility] Comment on above: The validity of the calculated GFR & GFRAA in patients over 70 years has not been determined. Clinical correlation is essential. Serum or plasma urea nitroge n measurement (mass/volume)Ordered By: Lourdes Metz on 07-07-2022 Urea nitrogen [Mass/Vol] 10 mg/dL 7-18 [facility] Thin prep Papanicolaou smear with manual screeningOrdered By: Lourdes Metz on 07-07-2022 Thin prep Papanicolaou smear with manual screening 9 5-15 [facility] Glucose Glucometer (BldC) [M ass/Vol]Ordered By: Dr. Zarate on 07-01-2022 Glucose [Mass/Vol] 85 mg/dL 74-106 [facility] Comment on above: MANAGEMENT OF PATIEN T CARE PER NURSING PROTOCOL Serum or plasma acetone koby urement (mass/volume)Ordered By: Dr. Zarate on 07-01-2022 Acetone [Mass/Vol] MODERATE NEG [facility] Absolute lymphocyte countOrd ered By: Dr. Zarate on 06-30-2022 Lymphocytes Auto (Unsp spec) [#/Vol] 4.64 10*3/uL 0.83-4.51 [facility] Basophil percentageOrdered B y: Dr. Zarate on 06-30-2022 Basophils/100 WBC (Bld) 0.8 % 0-1 [facility] Chloride [Moles/Vol] 97 mmol/L 98-107 [facility] Eosinophils/100 WBC (Bld) 5.2 % 0-5 [facility] Glucose [Mass/Vol] 569 mg/dL 74-106 [facility] Comment on above: Critical Result(s) C alled at: 23:51:55 06/30/2022 by: Jorge A Tamayo TO CURT HORN RN (ED) Results read back by same.Glucose result greater than or equal to 200 mg/dLsuggests DIABETES MELLITUS per A.D.A. criteria. Neutrophils (Bld) [#/Vol] 5.9 10*3/uL 2.0-7.7 [facility] Neutrophils/100 WBC (Bld) 48.9 % 47-70 [facility] Potassium [Moles/Vol] 4.2 mmol/L 3.5-5.1 [facility] Sodium [Moles/Vol] 134 mmol/L 136-145 [facility] WBC (Bld) [#/Vol] 12.1 10*3/uL 4.4-11.0 [facility] Blood erythrocytes count (nu mber/volume)Ordered By: Dr. Zarate on 06-30-2022 RBC (Bld) [#/Vol] 5.32 10*6/uL 4.6-6.2 [facility] Blood hemoglobin measurement (mass/volume)Ordered By: Dr. Zarate on 06-30-2022 Hemoglobin (Bld) [Mass/Vol] 14.0 g/dL 13.0-16.5 [facility] Blood lymphocytes/100 leukoc ytesOrdered By: Dr. Zarate on 06-30-2022 Lymphocytes/100 WBC (Bld) 38.4 % 19-41 [facility] Blood monocytes/100 leukocyt esOrdered By: Dr. Zarate on 06-30-2022 Monocytes/100 WBC (Bld) 6.0 % 0-10 [facility] Blood platelet mean volumeOr dered By: Dr. Zarate on 06-30-2022 Platelet mean volume (Bld) [Entitic vol] 10.6 fL 6.2-12.0 [facility] Determination of erythrocyte mean corpuscular volume (MCV)Ordered By: Dr. Zarate on 06-30-2022 MCV (RBC) [Entitic vol] 80.3 fL 80-94 [facility] Hematocrit Auto (Bld) [Volum e fraction]Ordered By: Dr. Zarate on 06-30-2022 Hematocrit (Bld) [Volume fraction] 42.7 % 40-54 [facility] Laboratory - Chemistry and C hemistry - challengeOrdered By: Dr. Zarate on 06-30-2022 CO2 [Moles/Vol] 22.0 mmol/L 21.0-32.0 [facility] Urea nitrogen/Creatinine [Mass ratio] 15.8 mg/mg 10-20 [facility] Laboratory - Hematology and Cell countsOrdered By: Dr. Zarate on 06-30-2022 Erythrocyte distribution width (RBC) [Entitic vol] 39.7 fL 35.1-43.9 [facility] Erythrocyte distribution width (RBC) [Ratio] 13.7 % 11.6-14.6 [facility] Immature granulocytes/100 WBC (Bld) 0.700 % 0.0-0.9 [facility] Comment on above: IG% - Immature Granu locytes (promyelocytes, myelocytes and metamyelocytes) > 1% indicates that a LEFT SHIFT is Present. MCH (RBC) [Entitic mass] 26.3 pg 27.0-32.0 [facility] Nucleated RBC/100 WBC (Bld) [Ratio] 0 % 0-5 [facility] MCHC Auto (RBC) [Mass/Vol]Or dered By: Dr. Zarate on 06-30-2022 MCHC (RBC) [Mass/Vol] 32.8 g/dL 32-36 [facility] No Panel InformationOrdered By: Dr. Zarate on 06-30-2022 D-Dimer Quantitative (PE/DVT) < 0.27 FEU/ug/m 0.27-0.49 [facility] Comment on above: NORMAL D-Dimer level (<0.50) indicates no DVT or PE. Estimated Creatinine Clearance Calc 97.16 ml/min [facility] Estimated GFR (MDRD) Amer 95 mL/min >60 [facility] Comment on above: GFR Calc Estimated GFR (MDRD) Non-Af Amer 78 mL/min >60 [facility] Comment on above: Non- GFR Calc Troponin I High Sensitivity 4 pg/mL 3.0-78.0 [facility] Comment on above: Please Note: New Nayla t Units and Gender Specific Reference Ranges. For more information see Policy Stat Procedure [place] High Sensitivity Troponin (TNIH) and attachments. Platelets bldOrdered By: Dr. Zarate on 06-30-2022 Platelets (Bld) [#/Vol] 456 10*3/uL 150-450 [facility] Serum or plasma calcium koby urement (mass/volume)Ordered By: Dr. Zarate on 06-30-2022 Calcium [Mass/Vol] 8.8 mg/dL 8.5-10.1 [facility] Serum or plasma creatinine m easurement (mass/volume)Ordered By: Dr. Zarate on 06-30-2022 Creatinine [Mass/Vol] 1.20 mg/dL 0.70-1.30 [facility] Comment on above: The validity of the calculated GFR & GFRAA in patients over 70 years has not been determined. Clinical correlation is essential. Serum or plasma urea nitroge n measurement (mass/volume)Ordered By: Dr. Zarate on 06-30-2022 Urea nitrogen [Mass/Vol] 19 mg/dL 7-18 [facility] Thin prep Papanicolaou smear with manual screeningOrdered By: Dr. Zarate on 06-30-2022 Thin prep Papanicolaou smear with manual screening 15 5-15 [facility] Absolute lymphocyte counton 03-03-2022 Lymphocytes Auto (Unsp spec) [#/Vol] 3.87 10*3/uL 0.83-4.51 [facility] Work Phone: Basophil percentageon 2021 Basophils/100 WBC (Bld) 0.3 % 0-1 [facility] Work Phone: Chloride [Moles/Vol] 113 mmol/L 98-107 [facility] Work Phone: Eosinophils/100 WBC (Bld) 1.7 % 0-5 [facility] Work Phone: Glucose [Mass/Vol] 71 mg/dL 74-106 [facility] Work Phone: Neutrophils (Bld) [#/Vol] 8.9 10*3/uL 2.0-7.7 [facility] Work Phone: Neutrophils/100 WBC (Bld) 62.2 % 47-70 [facility] Work Phone: Potassium [Moles/Vol] 3.6 mmol/L 3.5-5.1 [facility]: Sodium [Moles/Vol] 142 mmol/L 136-145 [facility] Work Phone: WBC (Bld) [#/Vol] 14.3 10*3/uL 4.4-11.0 [facility]: Blood erythrocytes count (nu mber/volume)on 03-03-2022 RBC (Bld) [#/Vol] 4.58 10*6/uL 4.6-6.2 [facility] Work Phone: Blood hemoglobin measurement (mass/volume)on 03-03-2022 Hemoglobin (Bld) [Mass/Vol] 12.6 g/dL 13.0-16.5 [facility] Work Phone: Blood lymphocytes/100 leukoc yteson 03-03-2022 Lymphocytes/100 WBC (Bld) 27.0 % 19-41 [facility] Work Phone: Blood monocytes/100 leukocyt eson 03-03-2022 Monocytes/100 WBC (Bld) 8.2 % 0-10 [facility] Work Phone: Blood platelet mean volumeon 03-03-2022 Platelet mean volume (Bld) [Entitic vol] 9.4 fL 6.2-12.0 [facility] Work Phone: Determination of erythrocyte mean corpuscular volume (MCV)on 03-03-2022 MCV (RBC) [Entitic vol] 83.6 fL 80-94 [facility] Work Phone: Comment on above: Delta: 91.7 on 03/02-6 Glucose Glucometer (BldC) [M ass/Vol]on 03-03-2022 Glucose [Mass/Vol] 224 mg/dL 74-106 [facility] Work Phone: Comment on above: MANAGEMENT OF PATIEN T CARE PER NURSING PROTOCOL Hematocrit Auto (Bld) [Volum e fraction]on 03-03-2022 Hematocrit (Bld) [Volume fraction] 38.3 % 40-54 [facility] Work Phone: Laboratory - Chemistry and C hemistry - challengeon 03-03-2022 CO2 [Moles/Vol] 21.0 mmol/L 21.0-32.0 [facility] Work Phone: Urea nitrogen/Creatinine [Mass ratio] 14.9 mg/mg 10-20 [facility] Work Phone: Laboratory - Hematology and Cell countson 03-03-2022 Erythrocyte distribution width (RBC) [Entitic vol] 43.5 fL 35.1-43.9 [facility] Work Phone: Erythrocyte distribution width (RBC) [Ratio] 14.3 % 11.6-14.6 [facility] Work Phone: Immature granulocytes/100 WBC (Bld) 0.600 % 0.0-0.9 [facility] Work Phone: Comment on above: IG% - Immature Granu locytes (promyelocytes, myelocytes and metamyelocytes) > 1% indicates that a LEFT SHIFT is Present. MCH (RBC) [Entitic mass] 27.5 pg 27.0-32.0 [facility] Work Phone: Nucleated RBC/100 WBC (Bld) [Ratio] 0 % 0-5 [facility] Work Phone: MCHC Auto (RBC) [Mass/Vol]on 03-03-2022 MCHC (RBC) [Mass/Vol] 32.9 g/dL 32-36 [facility] Work Phone: Comment on above: Delta: 29.6 on 03/02 No Panel Informationon 03-03 Estimated Creatinine Clearance Calc 111.61 ml/min [facility] Work Phone: Estimated GFR (MDRD) Amer 150 mL/min >60 [facility] Work Phone: Comment on above: GFR Calc Estimated GFR (MDRD) Non-Af Amer 124 mL/min >60 [facility] Work Phone: Comment on above: Non- GFR Calc Platelets bldon 03-03-2022 Platelets (Bld) [#/Vol] 345 10*3/uL 150-450 [facility] Work Phone: Serum or plasma calcium koby urement (mass/volume)on 03-03-2022 Calcium [Mass/Vol] 7.9 mg/dL 8.5-10.1 [facility] Work Phone: Serum or plasma creatinine m easurement (mass/volume)on 03-03-2022 Creatinine [Mass/Vol] 0.81 mg/dL 0.70-1.30 [facility] Work Phone: Comment on above: The validity of the calculated GFR & GFRAA in patients over 70 years has not been determined. Clinical correlation is essential. Serum or plasma urea nitroge n measurement (mass/volume)on 03-03-2022 Urea nitrogen [Mass/Vol] 12 mg/dL 7-18 [facility] Work Phone: Thin prep Papanicolaou smear with manual screeningon 03-03-2022 Thin prep Papanicolaou smear with manual screening 8 5-15 [facility] Work Phone: Absolute lymphocyte counton 2022 Lymphocytes Auto (Unsp spec) [#/Vol] 4.87 10*3/uL 0.83-4.51 [facility] Work Phone: Basophil percentageon 2021 Basophil percentage 0 SEEN /hpf 0-5 [facility] Work Phone: Basophil percentage 9.1 mg/dL 2.5-4.9 [facility] Work Phone: Comment on above: Critical Result(s) C alled at: 11:23:45 2022 by: Renita Butt to [employer]. Results read back by same. Basophils/100 WBC (Bld) 0.9 % 0-1 [facility] [facility] Work Phone: Bilirubin [Mass/Vol] 0.60 mg/dL 0.20-1.00 [facility] Work Phone: Comment on above: For patients on eltr ombopag therapy, use of Dimension [place] TBIL is not recommended. Chloride [Moles/Vol] 86 mmol/L 98-107 [facility] Work Phone: Eosinophils/100 WBC (Bld) 0.8 % 0-5 [facility] Work Phone: Glucose [Mass/Vol] 852 mg/dL 74-106 [facility] Work Phone: Comment on above: Critical Result(s) C alled at: 11:23:45 2022 by: Renita Butt to [employer]. Results read back by same.Glucose result greater than or equal to 200 mg/dLsuggests DIABETES MELLITUS per A.D.A. criteria. Neutrophils (Bld) [#/Vol] 11.8 10*3/uL 2.0-7.7 [facility] Work Phone: Neutrophils/100 WBC (Bld) 64.6 % 47-70 [facility] Work Phone: Potassium [Moles/Vol] 5.2 mmol/L 3.5-5.1 [facility] Work Phone: Protein [Mass/Vol] 9.0 g/dL 6.4-8.2 [facility] Work Phone: Sodium [Moles/Vol] 128 mmol/L 136-145 [facility]: WBC (Bld) [#/Vol] 18.3 10*3/uL 4.4-11.0 [facility] Work Phone: Bilirubin Test strip Ql (U)o n 2022 Bilirubin Ql (U) Negative Negative [facility] Work Phone: Blood erythrocytes count (nu mber/volume)on 2022 RBC (Bld) [#/Vol] 6.11 10*6/uL 4.6-6.2 [facility] Work Phone: Blood hemoglobin measurement (mass/volume)on 2022 Hemoglobin (Bld) [Mass/Vol] 16.6 g/dL 13.0-16.5 [facility] Work Phone: Blood lymphocytes/100 leukoc yteson 2022 Lymphocytes/100 WBC (Bld) 26.6 % 19-41 [facility] Work Phone: Blood monocytes/100 leukocyt eson 2022 Monocytes/100 WBC (Bld) 5.5 % 0-10 [facility] Work Phone: Blood platelet mean volumeon 2022 Platelet mean volume (Bld) [Entitic vol] 10.7 fL 6.2-12.0 [facility] Work Phone: Determination of erythrocyte mean corpuscular volume (MCV)on 2022 MCV (RBC) [Entitic vol] 91.7 fL 80-94 [facility] Work Phone: Hematocrit Auto (Bld) [Volum e fraction]on 2022 Hematocrit (Bld) [Volume fraction] 56.0 % 40-54 [facility] Work Phone: Ketones Test strip Ql (U)on 2022 Ketones Ql (U) 150 mg/dl Negative [facility] Work Phone: Comment on above: CRITICAL VALUE VERIF IED. CALLED TO ODETTE MCADAMS RN (ICU)03/02/22 1845 Ney Navarro.RESULTS READ BACK BY SAME . CRITICAL VALUE *H Laboratory - Chemistry and C hemistry - challengeon 2022 ALP [Catalytic activity/Vol] 288 U/L 45-117 [facility] Work Phone: ALT [Catalytic activity/Vol] 62 U/L 16-61 [facility] Work Phone: CK [Catalytic activity/Vol] 44 U/L 39-308 [facility] Work Phone: CO2 [Moles/Vol] 10.0 mmol/L 21.0-32.0 [facility] Work Phone: Globulin (S) [Mass/Vol] 4.9 g/dL 2.2-4.2 [facility] Work Phone: Magnesium [Mass/Vol] 2.6 mg/dL 1.6-2.6 [facility] Work Phone: Urea nitrogen/Creatinine [Mass ratio] 17.3 mg/mg 10-20 [facility] Work Phone: Laboratory - Hematology and Cell countson 2022 Erythrocyte distribution width (RBC) [Entitic vol] 47.6 fL 35.1-43.9 [facility] Work Phone: Erythrocyte distribution width (RBC) [Ratio] 14.2 % 11.6-14.6 [facility] Work Phone: Immature granulocytes/100 WBC (Bld) 1.600 % 0.0-0.9 [facility] Work Phone: Comment on above: IG% - Immature Granu locytes (promyelocytes, myelocytes and metamyelocytes) > 1% indicates that a LEFT SHIFT is Present. MCH (RBC) [Entitic mass] 27.2 pg 27.0-32.0 [facility] Work Phone: Nucleated RBC/100 WBC (Bld) [Ratio] 0 % 0-5 [facility] Work Phone: MCHC Auto (RBC) [Mass/Vol]on 2022 MCHC (RBC) [Mass/Vol] 29.6 g/dL 32-36 [facility] Work Phone: Mucus LM Ql (Urine sed)on Mucus Ql (Urine sed) 0 SEEN /hpf [facility] Work Phone: Nitrite Test strip Ql (U)on 2022 Nitrite Ql (U) Negative Negative [facility] Work Phone: No Panel Informationon 03-02 Estimated Creatinine Clearance Calc 60.37 ml/min [facility] Work Phone: Estimated GFR (MDRD) Amer 67 mL/min >60 [facility] Work Phone: Comment on above: GFR Calc Estimated GFR (MDRD) Non-Af Amer 56 mL/min >60 [facility] Work Phone: Comment on above: Non- GFR Calc Platelets bldon 2022 Platelets (Bld) [#/Vol] 518 10*3/uL 150-450 [facility] Work Phone: Protein Test strip Ql (U)on 2022 Protein Ql (U) 30 mg/dl Negative [facility] Work Phone: Serum or plasma acetone koby urement (mass/volume)on 2022 Acetone [Mass/Vol] MODERATE NEG [facility] Work Phone: Serum or plasma albumin koby urement (mass/volume)on 2022 Albumin [Mass/Vol] 4.1 g/dL 3.2-5.0 [facility] Work Phone: Serum or plasma albumin/glob ulin mass ratioon 2022 Albumin/Globulin [Mass ratio] 0.8 {ratio} 0.9-2.4 [facility] Work Phone: Serum or plasma calcium koby urement (mass/volume)on 2022 Calcium [Mass/Vol] 9.4 mg/dL 8.5-10.1 [facility] Work Phone: Serum or plasma creatinine m easurement (mass/volume)on 2022 Creatinine [Mass/Vol] 1.62 mg/dL 0.70-1.30 [facility] Work Phone: Comment on above: The validity of the calculated GFR & GFRAA in patients over 70 years has not been determined. Clinical correlation is essential. Serum or plasma urea nitroge n measurement (mass/volume)on 2022 Urea nitrogen [Mass/Vol] 28 mg/dL 7-18 [facility] Work Phone: Squamous epithelial cells de tection in urine sediment by light microscopyon 2022 Epithelial cells.squamous LM Ql (Urine sed) 0 SEEN /hpf 0-5 [facility] Work Phone: Thin prep Papanicolaou smear with manual screeningon 2022 Thin prep Papanicolaou smear with manual screening 16 U/L 15-37 [facility] Work Phone: Thin prep Papanicolaou smear with manual screening 32 5-15 [facility] Work Phone: Urine blood detectionon 02-07 RBC Ql (U) Negative Negative [facility] Work Phone: RBC Ql (U) 0 SEEN /hpf 0-5 [facility] Work Phone: Urine clarityon 2022 Clarity (U) Clear Clear [facility] Work Phone: Urine coarse granular cast d etectionon 2022 Coarse Granular Casts LM Ql (Urine sed) 5-10 SEEN /lpf 0-5 /lpf [facility] Work Phone: Urine color determinationon 2022 Color (U) Yellow Yellow [facility] Work Phone: Urine glucose detectionon Glucose Ql (U) 1000 mg/dl Normal [facility] Work Phone: Urine leukocyte esterase det ection by dipstickon 2022 Leukocyte esterase Test strip Ql (U) Negative Negative [facility] Work Phone: Urine pHon 2022 pH (U) 5.0 [pH] 5.0 - 8.0 [facility] Work Phone: Urine sediment bacteria coun t by microscopy (number/high power field)on 2022 Bacteria LM.HPF (Urine sed) [#/Area] 1 /[HPF] None Seen [facility] Work Phone: Urine specific gravity measu rementon 2022 Specific gravity (U) [Rel density] 1.025 1.002-1.03 0 [facility] Work Phone: Urobilinogen Auto test strip Ql (U)on 2022 Urobilinogen Ql (U) Normal mg/dl Normal [facility] Work Phone: CT HEAD W/O CONTRASTon 04-21 CT HEAD W/O CONTRAST Performed at [facility] APPROVED BY: Elkin Mays MD EXAMINATION: [...] noted left parietal convexity subdural hematoma. Normal [facility] ALLIED HEALTHon 03-23-2018 ALLIED HEALTH HNO ID: [id number]: Mary Lind (Chaplain)ervice: Spiritual CareAuthor Type: ChaplainType: Allied HealthFiled: 03/23/2018 10:44 AMNote Text: SPIRITUALCARESpiritual Care Visit- Brief NoteName: Una CosbyMRN: [id number]: March 23, 2018Notes: Delivered scrubs for pt Cha plain Signature: Claudy Lind contact the Spiritual Care Department:Please call [phone] or Page the On-Call Building Pressure Washer at pager [phone] you for the opportunity to be of service.This is an electronically created document.IF PRINTED, PLEASE DO NOT REMOVE FROM THE CHART OR MODIFY PRINTED COPY. Normal [facility] Basic Panelon 03-23-2018 Creatinine mass conc 0.39 mg/dL Low 0.67-1.17 [facility] Comment on above: Performed By: #### A PTT ####[facility] [place] [address] Glucose mass conc 270 mg/dL High 70-99 [facility] Comment on above: Performed By: #### A PTT ####[facility] [place], [place] [address] Urea nitrogen mass conc 8 mg/dL Normal 7-18 [facility] Comment on above: Performed By: #### A PTT ####[facility] [place], [place] [address] Anion gap 3 molar conc 14 mmol/L Normal 8-16 [facility] Comment on above: Performed By: #### A PTT ####[facility] [place], [place] [address] Calcium mass conc 7.6 mg/dL Low 8.5-10.1 [facility] Comment on above: Performed By: #### A PTT ####[address], [place] [address] CO2 molar conc 26 mmol/L Normal 21-32 [facility] Comment on above: Performed By: #### A PTT ####[facility] [place], [place] [address] Chloride molar conc 97 mmol/L Low 98-107 [facility] Comment on above: Performed By: #### A PTT ####[facility] [place] [address] Potassium molar conc 3.7 mmol/L Normal 3.5-5.1 [facility] Comment on above: Performed By: #### A PTT ####[facility] [place] [address] Sodium molar conc 133 mmol/L Low 136-145 [facility] Comment on above: Performed By: #### A PTT ####[place] [address] CASE MANAGEMon 03-23-2018 CASE MANAGEM HNO ID: [id number]: Heena GastelumRn) KAZ Stokeservice: Care ManagementAuthor Type: Registered NurseType: Care Mgt Progress NoteFiled: 03/23/2018 9:49 AMNote Text:CARE MANAGEMENT PROGRESS NOTESERVICE DATE: 03/23/2018SERVICE TIME: 0948 LOS: 3 daysNeeds Prior to Discharge: Accepting Facility;InsuranceAutho rization;Discharge TransportationPT/OT recommending acute rehab at discharge--patient agreeable; [facility]. Await acceptance. Patient will need cottransportation at discharge.SIGNATURE: Heena Stokes RN PATIENT NAME: Una CosbyDATE: March 23, 2018 : 9:48 AM PAGER/CONTACT #: [phone] [facility] CNDSon 03-23-2018 CNDS HNO ID: [id number]: Patricio Peguero) LyleService: TraumaAuthor Type: Physician AssistantType: Discharge SummariesFiled: 03/23/2018 1:51 PMNote Text: DISCHARGE SUMMARYPATIENT NAME: Una Cosby Code Status: Not on fileMRN: [id number] Readmission Risk Score: 22 The 30 day [...] Patient/Parents to call for appointment?: Yes Jorge [phone] [place] [address] PCP Requested Referral Follow-Up Appointment PCP: Please contact your Primary Care Physician to schedule a follow-upappointment regarding your Diabetes and adequate blood sugar control in 1week. When: In 1 week Patient/Parents to call for appointment?: Yes Ron [phone] [address] [place] [address] PCP Requested ReferralAdditional Provider to Provider Information:No notes on fileTransitions of Care Critical Issues:NALABS AND PROCEDURES PENDING AT DISCHARGE: No pending results.FOLLOW-UP APPOINTMENTS ALREADY SCHEDULED WITH A [facility] PROVIDER:Follow-up appointments to be scheduled by patient [...] Change Levemir to preferred insulin Lantus SolostarInsulin [place], Disposable, (BD ULTRAFINE III MINI PEN) 31 [...] 23, 2018TIME: 1:49 PM Normal [facility] CONSULT PROGon 03-23-2018 Protein mass conc HNO ID: [id number]: Arline BradleyhaService: EndocrinologyAuthor Type: PhysicianType: Consult Progress NoteFiled: [...] 9:15 AM PAGER: [phone] Normal [facility] Glucose Meteron 03-23-2018 Glucose mass conc mg/dL High 70-99 [facility] Comment on above: Result Comment: KEN HINES Performed By: #### U RIN2 ####[place] [address] Hemogram/Diffon 03-23-2018 Abs Immature Grans 0.03 thou/cmm Normal 0.00-0.05 [facility] Comment on above: Performed By: #### A PTT ####[place] [address] Abs. Baso 0.02 thou/cmm Normal 0.01-0.08 [facility] Comment on above: Performed By: #### A PTT ####[place] [address] Abs. Saline 0.53 thou/cmm Normal 0.30-0.82 [facility] Comment on above: Performed By: #### A PTT ####[place] [address] Abs. Neut (ANC) 3.97 thou/cmm Normal 1.78-5.38 [facility] Comment on above: Performed By: #### A PTT ####[place] [address] Basophils/100 WBC Auto (Bld) 0.3 % Normal [facility] Comment on above: Performed By: #### A PTT ####[place] [address] Eosinophils Auto #/vol (Bld) 0.32 thou/cmm Normal 0.04-0.54 [facility] Comment on above: Performed By: #### A PTT ####[facility] [place], [place] [address] Eosinophils/100 WBC Auto (Bld) 4.3 % Normal [facility] Comment on above: Performed By: #### A PTT ####[place] [address] Erythrocyte distribution width Auto Ratio (RBC) 19.7 % High 11.6-14.4 [facility] Comment on above: Performed By: #### A PTT ####[place] [address] Hematocrit Auto Volume Fraction (Bld) 34.4 % Low 40.1-51.0 [facility] Comment on above: Performed By: #### A PTT ####[place] [address] Hemoglobin mass conc (Bld) 10.2 g/dL Low 13.7-17.5 [facility] Comment on above: Performed By: #### A PTT ####[place] [address] Immature Grans 0.40 % Normal [facility] Comment on above: Performed By: #### A PTT ####[place] [address] Lymphocytes Auto #/vol (Bld) 2.60 thou/cmm Normal 0.84-2.85 [facility] Comment on above: Performed By: #### A PTT ####[address] [address] Lymphocytes/100 WBC Auto (Bld) 34.8 % Normal [facility] Comment on above: Performed By: #### A PTT ####[place] [address] MCH Auto Entitic mass (RBC) 20.9 pg Low 25.7-32.2 [facility] Comment on above: Performed By: #### A PTT ####[place] [address] MCHC Auto mass conc (RBC) 29.7 % Low 32.3-36.5 [facility] Comment on above: Performed By: #### A PTT ####[facility] [place] [address] MCV Auto Entitic volume (RBC) 70.5 fL Low 83.2-95.6 [facility] Comment on above: Performed By: #### A PTT ####[place] [address] Monocytes/100 WBC Auto (Bld) 7.1 % Normal [facility] Comment on above: Performed By: #### A PTT ####[place] [address] Platelet mean volume Auto Entitic volume (Bld) 10.8 fL Normal 8.7-12.0 [facility] Comment on above: Performed By: #### A PTT ####[place] [address] Platelets Auto #/vol (Bld) 230 thou/cmm Normal 141-365 [facility] Comment on above: Performed By: #### A PTT ####[place] [address] RBC Auto #/vol (Bld) 4.88 mil/cmm Normal 4.63-6.08 [facility] Comment on above: Performed By: #### A PTT ####[place] [address] RDW SD 48.3 fl High 36.1-45.8 [facility] Comment on above: Performed By: #### A PTT ####[place] [address] Seg Neutrophil 53.1 % Normal [facility] Comment on above: Performed By: #### A PTT ####[place] [address] WBC Auto #/vol (Bld) 7.48 thou/cmm Normal 4.23-9.07 [facility] Comment on above: Performed By: #### A PTT ####[facility]1 [place], [place] [address] MDRD GFRon 03-23-2018 GFR/1.73 sq M predicted among non-blacks MDRD vol rate/area (S/P/Bld) mL/min/{1.73_m2} Normal >60mL/min/ 1.73m2 [facility] Comment on above: Result Comment: If t he patient is , multiply the result by 1.210. Performed By: #### G FR ####[facility] [place], [place] [address] PROGRESSon 03-23-2018 Protein mass conc HNO ID: [id number]: Glo Narvaeze: TraumaAuthor Type: PhysicianType: Progress NotesFiled: [...] - 03/23/18 0659 03/23/18699 - 03/24/18 0659Shift 0135-6522 1033-4218 3905-7297 24 Hour Total 3339-9398 0972-96078173-7355 24 Hour TotalINTAKE PO 171 564 6317 PO 904 302 8985 IV 1725.9 1725.9 NS 0.9% 1397 1397 Calcium IVPB 290 290 Regular Insulin IV 38.9 38.9 Shift Total 2565.9 480 3045.9OUTPUT Urine 1325 1 600 1926 Void (ml) 1317 566 4810 Urine Not Saved 1 1 Emesis 1 [...] all four extremities within normal limits. 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.SKIN: Skin color, texture, [...] Type(05/23/10): dx type 1 diabetes* Control hx(05/23/10): WDU3l=49.4%* Eye hx(06/13/10): no formal eye exam yet* Neuro hx(06/13/10): no resting acral dysesthesias* Renal hx(06/13/10): no urine albumin data* Vascular hx(06/13/10): no nmdybr89 year old male left parietal scalp hematoma [...] pending.ZAIN Cabello-CSIGNATURE: KWADWO CabelloC PATIENT NAME: Una HowellTE: March 23, 2018 : 7:24 AM Pager:Awake and alertFunctioning independentlyWants to go home instead of Acute rehab (Did not see reason why)OK to D/C homeF/U with NSF/U with PCP for DMFarid Nasrin MD [facility] Protein mass conc HNO ID: [id number]: MAKAYLA Campos Reservice: General SurgeryAuthor Type: ResidentType: [...] THERAPY NTon 03-23-2018 THERAPY NT HNO ID: [id number]: Leana Chuaervice: Physical TherapyAuthor Type: Physical Therapy AssistantType: Therapy (PT/OT/Speech/Resp)File d: 03/23/2018 11:21 AMNote Text: Attleonel ticasa signed by Obdulia GastelumPtBob Minor at 03/23/2018 11:55 AMI reviewed and agree with the documentation corresponding to this therapyvisit.SIGNATURE: Obdulia Minor, PTDATE: March 23, 2018TIME: 11:55 AM Physical Therapy TreatmentSERVICE DATE: 03/23/2018SERVICE TIME: 1050 to 1106ROOM: [id number] Dis[facility] Disposition: Outpatient Physical TherapyRecommended Discharge [...] of gait andmobility-otherInterv entions Provided: Therapeutic Activity (95722);Gait Training (20040)Therapeutic Activity (54051) Treatment Minutes: 60 unitsSkilled Intervention(s): Instructed patient [...] Patientcompleted sit/stand test, see results below.Gait Training (23283) Treatment Minutes: 101 unitSkilled Intervention(s): Instruction in [...] 2018 : 11:12 AM Normal [facility] Basic Panelon 03-22-2018 Creatinine mass conc 0.41 mg/dL Low 0.67-1.17 [facility] Comment on above: Performed By: #### P T ####[facility] [place], [place] [address] Glucose mass conc 297 mg/dL High 70-99 [facility] Comment on above: Performed By: #### P T ####[facility] [place], [place] [address] Urea nitrogen mass conc 5 mg/dL Low 7-18 [facility] Comment on above: Performed By: #### P T ####[facility] [place] [address] Anion gap 3 molar conc 14 mmol/L Normal 8-16 [facility] Comment on above: Performed By: #### P T ####[address] [address] Calcium mass conc 7.4 mg/dL Low 8.5-10.1 [facility] Comment on above: Performed By: #### P T ####[address] [address] CO2 molar conc 26 mmol/L Normal 21-32 [facility] Comment on above: Performed By: #### P T ####[address] [address] Chloride molar conc 98 mmol/L Normal 98-107 [facility] Comment on above: Performed By: #### P T ####[address] [address] Potassium molar conc 4.2 mmol/L Normal 3.5-5.1 [facility] Comment on above: Performed By: #### P T ####[place] [address] Sodium molar conc 134 mmol/L Low 136-145 [facility] Comment on above: Performed By: #### P T ####[place] [address] CONSULT PROGon 03-22-2018 Protein mass conc HNO ID: [id number]: Arline BradleyService: EndocrinologyAuthor Type: PhysicianType: Consult Progress NoteFiled: 03/22/2018 [...] results. Last 24 hr BS reviewed.Recent Labs 03/21/18226003/21/1814GLUC 297* -- -- -- -- -- -- [...] March 22, 2018 : 8:45 AM PAGER: [phone] Normal [facility] CT MAXILLOFACIAL WITH CONTRA STon 03-22-2018 CT MAXILLOFACIAL WITH CONTRAST Performed at [facility] APPROVED BY: Carroll Gonzalez MD MAXILLOFACIAL [...] of natalie abscess formation is identified. Normal [facility] Hemogram/Diffon 03-22-2018 Abs Immature Grans 0.03 thou/cmm Normal 0.00-0.05 [facility] Comment on above: Performed By: #### P T ####[place] [address] Abs. Baso 0.02 thou/cmm Normal 0.01-0.08 [facility] Comment on above: Performed By: #### P T ####[place] [address] Abs. Saline 0.46 thou/cmm Normal 0.30-0.82 [facility] Comment on above: Performed By: #### P T ####[place] [address] Abs. Neut (ANC) 4.07 thou/cmm Normal 1.78-5.38 [facility] Comment on above: Performed By: #### P T ####[place] [address] Basophils/100 WBC Auto (Bld) 0.3 % Normal [facility] Comment on above: Performed By: #### P T ####[place] [address] Eosinophils Auto #/vol (Bld) 0.07 thou/cmm Normal 0.04-0.54 [facility] Comment on above: Performed By: #### P T ####[place] [address] Eosinophils/100 WBC Auto (Bld) 0.9 % Normal [facility] Comment on above: Performed By: #### P T ####[place] [address] Erythrocyte distribution width Auto Ratio (RBC) 19.5 % High 11.6-14.4 [facility] Comment on above: Performed By: #### P T ####[place] [address] [place] [address] Hematocrit Auto Volume Fraction (Bld) 31.6 % Low 40.1-51.0 [facility] Comment on above: Performed By: #### P T ####[place] [address] Hemoglobin mass conc (Bld) 9.5 g/dL Low 13.7-17.5 [facility] Comment on above: Performed By: #### P T ####[place] [address] Immature Grans 0.40 % Normal [facility] Comment on above: Performed By: #### P T ####[place] [address] Lymphocytes Auto #/vol (Bld) 2.84 thou/cmm Normal 0.84-2.85 [facility] Comment on above: Performed By: #### P T ####[place] [address] Lymphocytes/100 WBC Auto (Bld) 37.9 % Normal [facility] Comment on above: Performed By: #### P T ####[place] [address] MCH Auto Entitic mass (RBC) 21.2 pg Low 25.7-32.2 [facility] Comment on above: Performed By: #### P T ####[place] [address] MCHC Auto mass conc (RBC) 30.1 % Low 32.3-36.5 [facility] Comment on above: Performed By: #### P T ####[place] [address] MCV Auto Entitic volume (RBC) 70.5 fL Low 83.2-95.6 [facility] Comment on above: Performed By: #### P T ####[place] [address] Monocytes/100 WBC Auto (Bld) 6.1 % Normal [facility] Comment on above: Performed By: #### P T ####[facility] [place], [place] [address] Platelet mean volume Auto Entitic volume (Bld) 10.9 fL Normal 8.7-12.0 [facility] Comment on above: Performed By: #### P T ####[address] [address] Platelets Auto #/vol (Bld) 236 thou/cmm Normal 141-365 [facility]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 7-18 [facility] [place] Work Phone: Lab Report: Bedside Glucoseo n 01-15-2017 Glucose 86 mg/dL Invalid Interpretation Code 70-110 [facility] [place] Work Phone: Lab Report: CBC W/Diff, Auto matedon 01-15-2017 neutrophil count, blood 8.4 X10 3/UL High 2.0-7.7 [place] [employer] [facility] Work Phone: Neutrophils #/vol (Bld) 8.4 X10 3/UL High 2.0-7.7 [place] [employer] [facility] Work Phone: Basophils/100 leukocytes 0.2 % Invalid Interpretation Code 0-1 [place] [employer] [facility] Work Phone: Basophils/100 WBC (Bld) 0.2 % 0-1 [facility] Work Phone: Eosinophils/100 leukocytes 2.0 % Invalid Interpretation Code 0-5 [place] [employer] [facility] Work Phone: Eosinophils/100 WBC (Bld) 2.0 % 0-5 [place] [employer] [facility] Work Phone: Erythrocyte distribution width Ratio (RBC) 40.8 fL 35.1-43.9 [place] [employer] [facility] Work Phone: Erythrocyte distribution width Ratio (RBC) 13.1 % 11.6-14.6 [place] [employer] [facility] Work Phone: Erythrocytes (RBC) 3.98 10*6/uL Low 4.6-6.2 [facility] Work Phone: Hematocrit (HCT) 33.8 % Low 40-54 [facility] Work Phone: Hematocrit Volume Fraction (Bld) 33.8 % Low 40-54 [facility] Work Phone: Hemoglobin (HGB) 10.9 g/dL Low 13.0-16.5 [facility] Work Phone: Immature granulocytes #/vol (Bld) 0.200 % 0.0-0.9 [facility] Work Phone: immature granulocytes, percentage of total cells, blood 0.200 % Invalid Interpretation Code 0.0-0.9 [facility] Work Phone: Lymphocytes 3.10 X10 3/UL Invalid Interpretation Code 0.83-4.51 [facility] Work Phone: Lymphocytes #/vol (Bld) 3.10 X10 3/UL 0.83-4.51 [facility] Work Phone: Lymphocytes/100 leukocytes 23.8 % Invalid Interpretation Code 19-41 [facility] Work Phone: Lymphocytes/100 WBC (Bld) 23.8 % 19-41 [facility] Work Phone: MCH 27.4 pg Invalid Interpretation Code 27.0-32.0 [facility] Work Phone: MCH Entitic mass (RBC) 27.4 pg 27.0-32.0 [facility] Work Phone: MCHC 32.2 G/GL Invalid Interpretation Code 32-36 [facility] Work Phone: MCHC mass conc (RBC) 32.2 G/GL 32-36 [facility] Work Phone: MCV 84.9 fL Invalid Interpretation Code 80-94 [facility] Work Phone: MCV Entitic volume (RBC) 84.9 fL 80-94 [facility] Work Phone: Monocytes/100 leukocytes 9.3 % Invalid Interpretation Code 0-10 [facility] Work Phone: Monocytes/100 WBC (Bld) 9.3 % 0-10 [facility] Work Phone: Neutrophils/100 leukocytes 64.5 % Invalid Interpretation Code 47-70 [facility] Work Phone: Neutrophils/100 WBC (Bld) 64.5 % 47-70 [facility] Work Phone: Platelet mean volume Entitic volume (Bld) 10.2 fL 6.2-12.0 [facility] Work Phone: Platelets 322 10*3/mm3 Invalid Interpretation Code 150-450 [facility] Work Phone: Platelets #/vol (Bld) 322 10*3/mm3 150-450 [facility] Work Phone: PMV by Perry 10.2 fL Invalid Interpretation Code 6.2-12.0 [facility] Work Phone: RBC #/vol (Bld) 3.98 10*6/uL Low 4.6-6.2 [facility] Work Phone: RDW-CA 13.1 % Invalid Interpretation Code 11.6-14.6 [facility] Work Phone: red blood cell distribution width, size density 40.8 fL Invalid Interpretation Code 35.1-43.9 [facility] Work Phone: complete blood count (CBC), comments SCANNED Invalid Interpretation Code [facility] [place] Work Phone: SMEAR COMMENT SCANNED [facility] Work Phone: Lab Report: Pathology Skin B iopsyon 01-15-2017 GE use only - for [employer] import when terms are not otherwise specified SEE PATHOLOGY REPORT Invalid Interpretation Code [facility] [employer] Work Phone: PTH,Skin Biopsy SEE PATHOLOGY REPORT [facility] [employer] Work Phone: Microbiology: (P) Culture, W oundon 01-15-2017 CU[facility] . [facility] Work Phone: wound culture . Invalid Interpretation Code [facility] Work Phone: Replaced Document: (P) CBC W /Diff, Automatedon 01-15-2017 Basophils/100 leukocytes 0.2 % Invalid Interpretation Code 0-1 [facility] Work Phone: Basophils/100 WBC (Bld) 0.2 % 0-1 [facility] Work Phone: Eosinophils/100 leukocytes 3.5 % Invalid Interpretation Code 0-5 [facility] [place] Work Phone: Eosinophils/100 WBC (Bld) 3.5 % 0-5 [facility] Work Phone: Erythrocyte distribution width Ratio (RBC) 13.2 % 11.6-14.6 [facility] Work Phone: Erythrocyte distribution width Ratio (RBC) 40.3 fL 35.1-43.9 [facility] Work Phone: Erythrocytes (RBC) 4.02 10*6/uL Low 4.6-6.2 [facility] [place] Work Phone: Hematocrit (HCT) 33.8 % Low 40-54 [facility] [place] Work Phone: Hematocrit Volume Fraction (Bld) 33.8 % Low 40-54 [facility] Work Phone: Hemoglobin (HGB) 11.2 g/dL Low 13.0-16.5 [facility] [facility] Work Phone: Immature granulocytes #/vol (Bld) 0.300 % 0.0-0.9 [facility] Work Phone: immature granulocytes, percentage of total cells, blood 0.300 % Invalid Interpretation Code 0.0-0.9 [facility] Work Phone: Lymphocytes 3.26 X10 3/UL Invalid Interpretation Code 0.83-4.51 [facility] [place] Work Phone: Lymphocytes #/vol (Bld) 3.26 X10 [...] MCV Entitic volume (RBC) 84.1 fL 80-94 [facility] Work Phone: Monocytes/100 leukocytes 10.1 % High 0-10 [facility] Work Phone: Monocytes/100 WBC (Bld) 10.1 % High 0-10 [facility] Work Phone: neutrophil count, blood 8.9 X10 3/UL High 2.0-7.7 [facility] [place] Work Phone: Neutrophils #/vol (Bld) 8.9 X10 [...] Invalid Interpretation Code 150-450 [facility] Work Phone: Platelets #/vol (Bld) 307 10*3/mm3 150-450 [facility] Work Phone: PMV by Perry 10.2 fL Invalid Interpretation Code 6.2-12.0 [facility] Work Phone: RBC #/vol (Bld) 4.02 10*6/uL Low 4.6-6.2 [facility] Work Phone: RDW-CA 13.2 % Invalid Interpretation Code 11.6-14.6 [facility] Work Phone: red blood cell distribution width, size density 40.3 fL Invalid Interpretation Code 35.1-43.9 [facility] [place] Work Phone: WBC (Leukocytes) 14.2 10*3/uL High 4.4-11.0 [facility] Work Phone: Lab Report: Basic Metabolic Profile (BMP)on 01-14-2017 Anion gap 9 mmol/L Invalid Interpretation Code 5-15 [place] [employer] [facility] Work Phone: BUN/Creatinine Ratio 15.7 RATIO Invalid Interpretation Code 10-20 [place] [employer] [facility] Work Phone: Calcium 7.1 mg/dL Low 8.5-10.1 [place] [employer] [facility] Work Phone: Chloride 105 mmol/L Invalid Interpretation Code 98-107 [place] [employer] [facility] Work Phone: CO2 20.0 mmol/L Low 21.0-32.0 [facility] [employer] [facility] Work Phone: Creatinine 186.73 mL/min Invalid Interpretation Code [facility] [employer] [facility] Work Phone: Creatinine 0.45 mg/dL Low 0.70-1.30 [place] [employer] [facility] Work Phone: eGFR (non-black) 257 mL/min/{1.73_m2} Invalid Interpretation Code >60 [place] [employer] [facility] Work Phone: eGFR (non-black) 312 mL/min/{1.73_m2} Invalid Interpretation Code >60 [facility] [employer] [facility] Work Phone: Glucose 334 mg/dL High 70-110 [facility] [employer] [facility] Work Phone: Potassium 4.1 mmol/L Invalid Interpretation Code 3.5-5.1 [facility] [employer] [facility] Work Phone: Sodium 134 mmol/L Low 136-145 [place] [employer] [facility] Work Phone: Urea nitrogen 7 mg/dL Invalid Interpretation Code 7-18 [place] [employer] [facility] Work Phone: Anion gap 10 mmol/L Invalid Interpretation Code 5-15 [facility] [facility] Work Phone: BUN/Creatinine Ratio 11.6 RATIO Invalid Interpretation Code 10-20 [facility] Work Phone: Calcium 6.6 mg/dL Low 8.5-10.1 [facility] Work Phone: Chloride 106 mmol/L Invalid Interpretation Code 98-107 [facility] Work Phone: CO2 19.0 mmol/L Low 21.0-32.0 [facility] Work Phone: Creatinine 161.59 mL/min Invalid Interpretation Code [facility] Work Phone: Creatinine 0.52 mg/dL Low 0.70-1.30 [facility] Work Phone: eGFR (non-black) 218 mL/min/{1.73_m2} Invalid Interpretation Code >60 [facility] Work Phone: eGFR (non-black) 263 mL/min/{1.73_m2} Invalid Interpretation Code >60 [facility] Work Phone: Glucose 334 mg/dL High 70-110 [facility] Work Phone: Potassium 4.3 mmol/L Invalid Interpretation Code 3.5-5.1 [facility] Work Phone: Sodium 135 mmol/L Low 136-145 [facility] Work Phone: Urea nitrogen 6 mg/dL Low 7-18 [facility] Work Phone: Lab Report: Bedside Glucoseo n 01-14-2017 Glucose 325 mg/dL High 70-110 [facility] Work Phone: Glucose 429 mg/dL High 70-110 [facility] [facility] Work Phone: Lab Report: CBC W/Diff, Auto matedon 01-14-2017 Basophils/100 leukocytes 0.3 % Invalid Interpretation Code 0-1 [facility] Work Phone: Eosinophils/100 leukocytes 0.9 % Invalid Interpretation Code 0-5 [facility] Work Phone: Erythrocytes (RBC) 3.44 10*6/uL Low 4.6-6.2 [facility] [facility] Work Phone: Hematocrit (HCT) 29.2 % Low 40-54 [facility] Work Phone: Hemoglobin (HGB) 9.4 g/dL Low 13.0-16.5 [facility] Work Phone: immature granulocytes, percentage of total cells, blood 0.200 % Invalid Interpretation Code 0.0-0.9 [facility] Work Phone: Lymphocytes 1.72 X10 3/UL Invalid Interpretation Code 0.83-4.51 [facility] Work Phone: Lymphocytes/100 leukocytes 29.7 % Invalid Interpretation Code 19-41 [facility] Work Phone: MCH 27.3 pg Invalid Interpretation Code 27.0-32.0 [facility] Work Phone: MCHC 32.2 G/GL Invalid Interpretation Code 32-36 [facility] Work Phone: MCV 84.9 fL Invalid Interpretation Code 80-94 [facility] [facility] Work Phone: Monocytes/100 leukocytes 11.7 % High 0-10 [facility] Work Phone: neutrophil count, blood 3.3 X10 3/UL Invalid Interpretation Code 2.0-7.7 [facility] Phone: Neutrophils/100 leukocytes 57.2 % Invalid Interpretation Code 47-70 [facility] Phone: Platelets 206 10*3/mm3 Invalid Interpretation Code 150-450 [facility] Work Phone: PMV by Perry 11.0 fL Invalid Interpretation Code 6.2-12.0 [facility] Phone: RDW-CA 13.0 % Invalid Interpretation Code 11.6-14.6 [facility] Phone: red blood cell distribution width, size density 39.2 fL Invalid Interpretation Code 35.1-43.9 [facility] Work Phone: WBC (Leukocytes) 5.8 10*3/uL Invalid Interpretation Code 4.4-11.0 [facility] Phone: Lab Report: Hemoglobin A1con 01-14-2017 HbA1c 11.6 % High 4.2-6.3 [facility] Work Phone: Lab Report: Lactic Acidon Lactate 1.8 mmol/L Invalid Interpretation Code 0.4-2.0 [facility] Work Phone: Lactate 6.0 mmol/L Critically high 0.4-2.0 [facility] [employer] [facility] Work Phone: Lactate 4.8 mmol/L Critically high 0.4-2.0 [facility] [place] Work Phone: Lab Report: M R Staph Aureus DNA by PCRon 01-14-2017 INR in blood by coagulation Negative Invalid Interpretation Code Negative [facility] Work Phone: Lab Report: MRSA Wound DNA b y PCRon 01-14-2017 GE use only - for Link[employer] import when terms are not otherwise specified Negative Invalid Interpretation Code Negative [facility] Work Phone: SA RESULT Negative Negative [facility] Work Phone: Office Visiton 12-10-2016 Documentation of current medications (procedure) Done Invalid Interpretation Code [facility] Work Phone: Fall risk assessment No Invalid Interpretation Code [facility] Work Phone: Protein mass conc Done [facility] Work Phone: Chart Maintenance: Basaglaro n 11-12-2016 Urine, microalbumin mg/dL Invalid Interpretation Code [facility] Work Phone: Lab Report: Hemoglobin A1con 11-12-2016 HbA1c 12.0 % High 4.2-6.3 [facility] Work Phone: Lab Report: Microalb:Creat R atio,Random URon 11-12-2016 ACR (microalbumin/creatinin e) ratio Test not performed mg/g CRE Invalid Interpretation Code <30 mg/g CRE [facility] Work Phone: Albumin/Creatinine DL <= 20 mg/L Ratio (U) Test not performed mg/g CRE <30 mg/g CRE [facility] Work Phone: Urine, creatinine 38.10 mg/dL Invalid Interpretation Code NO RANGE EST. [facility] Work Phone: Urine, microalbumin < 5.0 mg/L Invalid Interpretation Code NO RANGE EST. [facility] Work Phone: Office Visit: Diabetes- [place] sition of care.on 11-12-2016 Adolescent depression screening assessment Adolescent depression screening assessment Invalid Interpretation Code [facility] Work Phone: Adult depression screening assessment Adolescent depression screening assessment [facility] Work Phone: Documentation of current medications (procedure) Done Invalid Interpretation Code [facility] Work Phone: Fall risk assessment No Invalid Interpretation Code [facility] Work Phone: Protein mass conc yes [facility] Work Phone: Smoking cessation education (procedure) yes Invalid Interpretation Code [facility] Work Phone: Tobacco smoking status NHIS Current Invalid Interpretation Code [facility] Work Phone: Tobacco smoking status NHIS Current every day smoker [facility] Work Phone: Tobacco use [facility] Current every day smoker Invalid Interpretation Code [facility] Work Phone: Influenza virus A and B and SARS-CoV-2 (COVID-19) Ag panel - Upper respiratory specim SARS-CoV-2 & FLU Antigen (Rapid) SARS-CoV-2 (COVID 19) [facility] Work Phone: Laboratory - Microbiology an d Antimicrobial susceptibility Respiratory pathogens DNA and RNA 12b panel LM+probe (Unsp spec) [facility] Work Phone: Throat Streptococcus pyogene s antigen detection by immunofluorescence S. pyogenes Ag IF Ql (Throat) [facility] Work Phone: Vital Signs Date Time Vital Sign Value Performing Clinician Facility 06-10-2025 17:06-0500 Body temperature 98.7 [degF] No Primary Care Physician [facility] 06-10-2025 17:06-0500 Diastolic blood pressure 94 mm[Hg] No Primary Care Physician [facility] 06-10-2025 17:06-0500 Heart rate 106 /min No Primary Care Physician [facility] 06-10-2025 17:06-0500 Respiratory rate 18 /min No Primary Care Physician [facility] 06-10-2025 17:06-0500 SaO2% (BldA) [Mass fraction] 100 % No Primary Care Physician [facility] 06-10-2025 17:06-0500 Systolic blood pressure 133 mm[Hg] No Primary Care Physician [facility] 06-10-2025 13:47-0500 Body height 185.42 cm No Primary Care Physician [facility] 06-10-2025 13:47-0500 Body weight 60 kg No Primary Care Physician [facility] 06-10-2025 05:19-0500 Body mass index (BMI) [Ratio] 17.5 kg/m2 No Primary Care Physician [facility] 05-26-2025 02:34-0400 Body temperature 98 [degF] No Primary Care Physician [facility] 05-26-2025 02:34-0400 Diastolic blood pressure 79 mm[Hg] No Primary Care Physician [facility] 05-26-2025 02:34-0400 Heart rate 92 /min No Primary Care Physician [facility] 05-26-2025 02:34-0400 Respiratory rate 16 /min No Primary Care Physician [facility] 05-26-2025 02:34-0400 SaO2% (BldA) [Mass fraction] 98 % No Primary Care Physician [facility] 05-26-2025 02:34-0400 Systolic blood pressure 118 mm[Hg] No Primary Care Physician [facility] 05-25-2025 22:37-0400 Body mass index (BMI) [Ratio] 18.7 kg/m2 No Primary Care Physician [facility] 05-25-2025 22:37-0400 Body weight 66.17 kg No Primary Care Physician [facility] 04-21-2025 14:27-0400 Body temperature 97.8 [degF] No Primary Care Physician [facility] 04-21-2025 14:27-0400 Diastolic blood pressure 70 mm[Hg] No Primary Care Physician [facility] 04-21-2025 14:27-0400 Heart rate 75 /min No Primary Care Physician [facility] 04-21-2025 14:27-0400 Respiratory rate 16 /min No Primary Care Physician [facility] 04-21-2025 14:27-0400 SaO2% (BldA) [Mass fraction] 100 % No Primary Care Physician [facility] 04-21-2025 14:27-0400 Systolic blood pressure 132 mm[Hg] No Primary Care Physician [facility] 04-21-2025 13:29-0400 Body height 187.96 cm No Primary Care Physician [facility] 04-21-2025 13:29-0400 Body mass index (BMI) [Ratio] 19.2 kg/m2 No Primary Care Physician [facility] 04-21-2025 13:29-0400 Body weight 68.03 kg No Primary Care Physician [facility] 02-28-2025 08:50-0400 Body height 187.96 cm No Primary Care Physician [facility] 02-28-2025 08:50-0400 Body weight 58.8 kg No Primary Care Physician [facility] 02-28-2025 04:23-0400 Body mass index (BMI) [Ratio] 16.6 kg/m2 No Primary Care Physician [facility] 02-28-2025 04:00-0400 Body temperature 97.5 [degF] No Primary Care Physician [facility] 02-28-2025 04:00-0400 Diastolic blood pressure 79 mm[Hg] No Primary Care Physician [facility] 02-28-2025 04:00-0400 Heart rate 97 /min No Primary Care Physician [facility] 02-28-2025 04:00-0400 Respiratory rate 18 /min No Primary Care Physician [facility] 02-28-2025 04:00-0400 SaO2% (BldA) [Mass fraction] 97 % No Primary Care Physician [facility] 02-28-2025 04:00-0400 Systolic blood pressure 123 mm[Hg] No Primary Care Physician [facility] 02-27-2025 14:53-0400 Body temperature 97.9 [degF] No Primary Care Physician [facility] 02-27-2025 14:53-0400 Diastolic blood pressure 78 mm[Hg] No Primary Care Physician [facility] 02-27-2025 14:53-0400 Heart rate 99 /min No Primary Care Physician [facility] 02-27-2025 14:53-0400 Respiratory rate 19 /min No Primary Care Physician [facility] 02-27-2025 14:53-0400 SaO2% (BldA) [Mass fraction] 99 % No Primary Care Physician [facility] 02-27-2025 14:53-0400 Systolic blood pressure 101 mm[Hg] No Primary Care Physician [facility] 02-27-2025 12:26-0400 Body height 182.88 cm No Primary Care Physician [facility] 02-27-2025 12:26-0400 Body mass index (BMI) [Ratio] 18.3 kg/m2 No Primary Care Physician [facility] 02-27-2025 12:26-0400 Body weight 61.5 kg No Primary Care Physician [facility] 02-05-2025 14:00-0400 Diastolic blood pressure 76 mm[Hg] Dr. Keisha Handy DO Work Phone: 5(480)171-912714 [place] [address] 02-05-2025 14:00-0400 Heart rate 89 /min Dr. Keisha Handy DO Work Phone: 2(218)073-702714 [place] [address] 02-05-2025 14:00-0400 Respiratory rate 18 /min Dr. Keisha Handy DO Work Phone: 6(702)443-612066 [place] [address] 02-05-2025 14:00-0400 SaO2% (BldA) [Mass fraction] 98 % Dr. Keisha Hnady DO Work Phone: 1(639)084-555714 [place] [address] 02-05-2025 10:15-0400 Body height 182.[address] Keisha Handy DO Work Phone: 3(173)526-178814 [place] [address] 02-05-2025 10:15-0400 Body weight 61.[address] Keisha Handy DO Work Phone: 2(790)580-415614 [place] [address] 02-05-2025 05:48-0400 Body mass index (BMI) [Ratio] 18.3 kg/m2 Dr. Keisha Handy DO Work Phone: 7(473)364-569314 [place] [address] 02-05-2025 04:00-0400 Diastolic blood pressure 75 mm[Hg] Dr. Keisha Handy DO Work Phone: 4(050)725-183214 [place] [address] 02-05-2025 04:00-0400 Heart rate 113 /min Dr. Keisha Handy DO Work Phone: 3(123)334-598414 [place] [address] 02-05-2025 04:00-0400 Respiratory rate 20 /min Dr. Keisha Handy DO Work Phone: 9(061)466-341666 [place] [address] 02-05-2025 04:00-0400 SaO2% (BldA) [Mass fraction] 100 % Dr. Keisha Handy DO Work Phone: 7(647)898-556266 [place] [address] 02-05-2025 04:00-0400 Systolic blood pressure 118 mm[Hg] Dr. Keisha Handy DO Work Phone: 3(320)036-618466 [place] [address] 02-05-2025 03:46-0400 Body temperature 97.9 [degF] Dr. Keisha Handy DO Work Phone: 3(754)266-357166 [place] [address] 02-05-2025 02:20-0400 Body height 182.[address] Keisha Handy DO Work Phone: 1(625)995-385666 [place] [address] 02-05-2025 02:20-0400 Body mass index (BMI) [Ratio] 18.3 kg/m2 Dr. Keisha Handy DO Work Phone: 9(135)436-647666 [place] [address] 02-05-2025 02:20-0400 Body weight 61.[address] Keisha Handy DO Work Phone: 2(748)690-182766 [place] [address] 01-26-2025 17:27-0400 Body temperature 97.8 [degF] Dr. Keisha Handy DO Work Phone: 5(309)562-607566 [place] [address] 01-26-2025 17:27-0400 Diastolic blood pressure 95 mm[Hg] Dr. Keisha Handy DO Work Phone: 7(914)977-133766 [place] [address] 01-26-2025 17:27-0400 Heart rate 97 /min Dr. Keisha Handy DO Work Phone: 6(442)005-657214 [place] [address] 01-26-2025 17:27-0400 Respiratory rate 14 /min Dr. Keisha Handy DO Work Phone: 7(941)497-605114 [place] [address] 01-26-2025 17:27-0400 SaO2% (BldA) [Mass fraction] 99 % Dr. Keisha Handy DO Work Phone: 3(693)240-826814 [place] [address] 01-26-2025 17:27-0400 Systolic blood pressure 125 mm[Hg] Dr. Keisha Handy DO Work Phone: 6(010)726-904814 [place] [address] 01-26-2025 11:24-0400 Body height 182.[address] Keisha Handy DO Work Phone: 5(701)599-625414 [place] [address] 01-26-2025 11:24-0400 Body mass index (BMI) [Ratio] 18.6 kg/m2 Dr. Keisha Handy DO Work Phone: 6(362)802-800466 [place] [address] 01-26-2025 11:24-0400 Body weight 62.[address] Keisha Handy DO Work Phone: 5(151)212-246914 [place] [address] 12-14-2024 02:20-0400 Body temperature 98.4 [degF] Dr. Keisha Handy DO Work Phone: 3(562)971-938514 [place] [address] 12-14-2024 02:20-0400 Diastolic blood pressure 68 mm[Hg] Dr. Keisha Handy DO Work Phone: 4(956)990-594114 [place] [address] 12-14-2024 02:20-0400 Heart rate 113 /min Dr. Keisha Handy DO Work Phone: 8(324)634-889514 [place] [address] 12-14-2024 02:20-0400 Respiratory rate 14 /min Dr. Keisha Handy DO Work Phone: 5(374)364-660014 [place] [address] 12-14-2024 02:20-0400 SaO2% (BldA) [Mass fraction] 96 % Dr. Keisha Handy DO Work Phone: 8(434)509-193814 [place] [address] 12-14-2024 02:20-0400 Systolic blood pressure 112 mm[Hg] Dr. Keisha Handy DO Work Phone: 1(084)838-103314 [place] [address] 12-13-2024 21:12-0400 Body height 187.[address] Keisha Handy DO Work Phone: 5(899)094-869614 [place] [address] 12-13-2024 21:12-0400 Body mass index (BMI) [Ratio] 14.6 kg/m2 Dr. Keisha Handy DO Work Phone: 1(070)646-834314 [place] [address] 12-13-2024 21:12-0400 Body weight 51.[address] Keisha Handy DO Work Phone: 0(700)408-315966 [place] [address] 12-12-2024 12:36-0400 Body mass index (BMI) [Ratio] 18.6 kg/m2 Dr. Keisha Handy DO Work Phone: 5(007)148-553014 [place] [address] 12-12-2024 12:36-0400 Body temperature 97 [degF] Dr. Keisha Handy DO Work Phone: 4(673)678-254166 [place] [address] 12-12-2024 12:36-0400 Body weight 62.[address] Keisha Handy DO Work Phone: 1(557)282-784566 [place] [address] 12-12-2024 12:36-0400 Diastolic blood pressure 82 mm[Hg] Dr. Keisha Handy DO Work Phone: 9(337)976-054166 [place] [address] 12-12-2024 12:36-0400 Heart rate 116 /min Dr. Keisha Handy DO Work Phone: 8(737)948-379566 [place] [address] 12-12-2024 12:36-0400 Respiratory rate 18 /min Dr. Keisha Handy DO Work Phone: 5(736)246-404766 [place] [address] 12-12-2024 12:36-0400 SaO2% (BldA) [Mass fraction] 100 % Dr. Keisha Handy DO Work Phone: 6(461)121-545794 [address] 12-12-2024 12:36-0400 Systolic blood pressure 126 mm[Hg] Dr. Keisha Handy DO Work Phone: 8(267)501-042966 [place] [address] 11-11-2024 19:18-0400 Body temperature 97.8 [degF] Dr. Keisha Handy DO Work Phone: 9(205)520-375514 [place] [address] 11-11-2024 19:18-0400 Diastolic blood pressure 86 mm[Hg] Dr. Keisha Handy DO Work Phone: 7(628)287-276914 [place] [address] 11-11-2024 19:18-0400 Heart rate 102 /min Dr. Keisha Handy DO Work Phone: 7(264)279-875914 [place] [address] 11-11-2024 19:18-0400 Respiratory rate 18 /min Dr. Keisha Handy DO Work Phone: 3(042)770-175314 [place] [address] 11-11-2024 19:18-0400 SaO2% (BldA) [Mass fraction] 98 % Dr. Keisha Handy DO Work Phone: 7(264)931-608014 [place] [address] 11-11-2024 19:18-0400 Systolic blood pressure 128 mm[Hg] Dr. Keisha Handy DO Work Phone: 2(666)677-439314 [place] [address] 11-11-2024 17:46-0400 Body height 182.[address] Keisha Handy DO Work Phone: 3(151)466-835914 [place] [address] 11-11-2024 17:46-0400 Body mass index (BMI) [Ratio] 18.7 kg/m2 Dr. Keisha Handy DO Work Phone: 3(923)875-724714 [place] [address] 11-11-2024 17:46-0400 Body weight 62.[address] Keisha Handy DO Work Phone: 5(846)295-974114 [place] [address] 10-19-2024 05:19-0400 Body temperature 97.8 [degF] Dr. Keisha Handy DO Work Phone: 1(874)406-062714 [place] [address] 10-19-2024 05:19-0400 Diastolic blood pressure 81 mm[Hg] Dr. Keisha Handy DO Work Phone: 9(440)221-197514 [place] [address] 10-19-2024 05:19-0400 Heart rate 95 /min Dr. Keisha Handy DO Work Phone: 2(614)524-403414 [place] [address] 10-19-2024 05:19-0400 Respiratory rate 16 /min Dr. Keisha Handy DO Work Phone: 1(563)406-792814 [place] [address] 10-19-2024 05:19-0400 SaO2% (BldA) [Mass fraction] 99 % Dr. Keisha Handy DO Work Phone: [facility] 10-19-2024 05:19-0400 Systolic blood pressure 127 mm[Hg] Dr. Keisha Handy DO Work Phone: [facility] 10-19-2024 00:09-0400 Body height 182.[address] Keisha Handy DO Work Phone: [facility] 10-19-2024 00:09-0400 Body mass index (BMI) [Ratio] 19.5 kg/m2 Dr. Keisha Handy DO Work Phone: [facility] 10-19-2024 00:09-0400 Body weight 65.[address] Keisha Handy DO Work Phone: [facility] 01-04-2023 00:24-0400 Diastolic blood pressure 81 mm[Hg] [facility]-04-[facility] 00:24-0400 Heart rate 87 /min MD Montiel [facility] 01-04-2023 00:24-0400 Respiratory rate 17 /min MD Montiel [facility] 01-04-2023 00:24-0400 SaO2% (BldA) [Mass fraction] 100 % [facility] 01-04-2023 00:24-0400 Systolic blood pressure 117 mm[Hg] MD Deangelo Noel [facility] 01-03-2023 22:18-0400 Body height 182.88 cm MD Deangelo Noel [facility] 01-03-2023 22:18-0400 Body mass index (BMI) [Ratio] 19.9 kg/m2 MD Deangelo Noel [facility] 01-03-2023 22:18-0400 Body temperature 96.6 [degF] MD Deangelo Noel [facility] 01-03-2023 22:18-0400 Body weight 66.7 kg MD Deangelo Noel [facility] 12-09-2022 21:44-0400 Heart rate 110 /min MD Deangelo Noel [facility] 12-09-2022 21:44-0400 Respiratory rate 18 /min [facility] 12-09-2022 20:08-0400 SaO2% (BldA) [Mass fraction] 99 % MD Montiel Aguilarlee [facility] 12-09-2022 18:04-0400 Body mass index (BMI) [Ratio] 20.4 kg/m2 MD Deangelo Noel [facility] 12-09-2022 18:04-0400 Body weight 62.7 kg [facility] 12-09-2022 17:39-0400 Body height 175.26 cm [facility] 12-09-2022 17:39-0400 Body temperature 97.9 [degF] MD Montiel [facility] 12-09-2022 17:39-0400 Diastolic blood pressure 63 mm[Hg] [facility] 12-09-2022 17:39-0400 Systolic blood pressure 94 mm[Hg] [facility]-03-2022 22:45-0400 Diastolic blood pressure 84 mm[Hg] MD Montiel [facility] 12-03-2022 22:45-0400 Heart rate 104 /min MD Deangelo Noel [facility] 12-03-2022 22:45-0400 Respiratory rate 18 /min [facility] 12-03-2022 22:45-0400 SaO2% (BldA) [Mass fraction] 97 % [facility] 12-03-2022 22:45-0400 Systolic blood pressure 127 mm[Hg] [facility] 12-03-2022 20:03-0400 Body height 172.72 cm MD Montiel [facility] 12-03-2022 20:03-0400 Body mass index (BMI) [Ratio] 22 kg/m2 [facility] 12-03-2022 20:03-0400 Body temperature 97.9 [degF] MD Deangelo Noel [facility] 12-03-2022 20:03-0400 Body weight 65.7 kg MD Montiel [facility] 11-17-2022 14:00-0400 Heart rate 115 /min MD Montiel [facility] 11-17-2022 14:00-0400 Respiratory rate 13 /min MD Montiel [facility] 11-17-2022 14:00-0400 SaO2% (BldA) [Mass fraction] 97 % MD Montiel [facility] 11-17-2022 00:52-0400 Body mass index (BMI) [Ratio] 18.1 kg/m2 MD Montiel [facility] 11-17-2022 00:52-0400 Body weight 60.7 kg MD Montiel [facility] 11-17-2022 00:10-0400 Body height 182.88 cm MD Mont[facility] 11-17-2022 00:10-0400 Body temperature 97.9 [degF] MD [facility] 11-17-2022 00:10-0400 Diastolic blood pressure 62 mm[Hg] MD Montiel [facility] 11-17-2022 00:10-0400 Systolic blood pressure 120 mm[Hg] MD Montiel [facility] 10-13-2022 06:21-0500 Diastolic blood pressure 90 mm[Hg] MD Montiel [facility] 10-13-2022 06:21-0500 Systolic blood pressure 129 mm[Hg] MD Montiel [facility] 10-13-2022 03:49-0500 Body height 162.56 cm MD Montiel [facility] 10-13-2022 03:49-0500 Body mass index (BMI) [Ratio] 24.4 kg/m2 MD Montiel [facility] 10-13-2022 03:49-0500 Body temperature 97.7 [degF] MD Montiel [facility] 10-13-2022 03:49-0500 Body weight 64.6 kg MD Montiel [facility] 10-13-2022 03:49-0500 Heart rate 120 /min MD Montiel [facility] 10-13-2022 03:49-0500 Respiratory rate 14 /min MD Montiel [facility] 10-13-2022 03:49-0500 SaO2% (BldA) [Mass fraction] 99 % MD Montiel [facility] 08-24-2022 23:11-0500 Diastolic blood pressure 82 mm[Hg] MD Montiel [facility] 08-24-2022 23:11-0500 Heart rate 120 /min MD Montiel [facility] 08-24-2022 23:11-0500 SaO2% (BldA) [Mass fraction] 99 % MD Montiel [facility] 08-24-2022 23:11-0500 Systolic blood pressure 126 mm[Hg] MD Montiel [facility] 08-24-2022 21:15-0500 Body temperature 98 [degF] MD Montiel [facility] 08-24-2022 21:15-0500 Respiratory rate 16 /min MD Montiel [facility] 08-24-2022 21:12-0500 Body height 162.56 cm MD Montiel [facility] 08-24-2022 21:12-0500 Body mass index (BMI) [Ratio] 24.7 kg/m2 MD Montiel [facility] 08-24-2022 21:12-0500 Body weight 65.4 kg MD Montiel [facility] 08-20-2022 14:36-0500 Body temperature 97.8 [degF] MD Montiel [facility] 08-20-2022 14:36-0500 Diastolic blood pressure 77 mm[Hg] MD Montiel [facility] 08-20-2022 14:36-0500 Heart rate 108 /min MD Montiel [facility] 08-20-2022 14:36-0500 Respiratory rate 16 /min MD Montiel [facility] 08-20-2022 14:36-0500 SaO2% (BldA) [Mass fraction] 97 % MD Montiel [facility] 08-20-2022 14:36-0500 Systolic blood pressure 111 mm[Hg] MD Montiel [facility] 08-20-2022 06:00-0500 Body weight 64.6 kg MD Montiel [facility] 08-19-2022 09:33-0500 Body height 182.88 cm MD Montiel [facility] Work Phone: 08-18-2022 15:00-0500 Inhaled oxygen flow rate 2 L/min [facility] 08-18-2022 11:46-0500 Body mass index (BMI) [Ratio] 20.3 kg/m2 MD Montiel [facility] 07-07-2022 20:35-0500 Diastolic blood pressure 93 mm[Hg] MD Montiel [facility] 07-07-2022 20:35-0500 Heart rate 114 /min [facility] 07-07-2022 20:35-0500 Respiratory rate 15 /min MD Montiel [facility] 07-07-2022 20:35-0500 SaO2% (BldA) [Mass fraction] 96 % [facility] 07-07-2022 20:35-0500 Systolic blood pressure 127 mm[Hg] MD Montiel [facility] 07-07-2022 14:41-0500 Body mass index (BMI) [Ratio] 23.3 kg/m2 [facility] 07-07-2022 14:41-0500 Body temperature 98 [degF] MD Montiel [facility] 07-07-2022 14:41-0500 Body weight 69.42 kg MD Montiel [facility] 07-01-2022 03:13-0500 Diastolic blood pressure 85 mm[Hg] MD Montiel [facility] 07-01-2022 03:13-0500 Heart rate 135 /min MD Montiel [facility] 07-01-2022 03:13-0500 Respiratory rate 16 /min MD Montiel [facility] 07-01-2022 03:13-0500 SaO2% (BldA) [Mass fraction] 100 % MD Montiel [facility] 07-01-2022 03:13-0500 Systolic blood pressure 123 mm[Hg] MD Montiel [facility] 06-30-2022 22:31-0500 Body temperature 97.4 [degF] MD Montiel [facility] 06-30-2022 22:26-0500 Body height 177.8 cm MD Montiel [facility] Work Phone: 06-30-2022 22:26-0500 Body mass index (BMI) [Ratio] 23.1 kg/m2 MD Montiel [facility] 06-30-2022 22:26-0500 Body weight 73.3 kg MD Montiel [facility] 03-03-2022 08:30-0400 SaO2% (BldA) [Mass fraction] 98 % MD Montiel [facility] Work Phone: 03-03-2022 08:00-0400 Body temperature 97.9 [degF] MD Montiel [facility] Work Phone: 03-03-2022 08:00-0400 Diastolic blood pressure 67 mm[Hg] MD Montiel [facility] Work Phone: 03-03-2022 08:00-0400 Heart rate 101 /min MD Montiel [facility] Work Phone: 03-03-2022 08:00-0400 Respiratory rate 18 /min MD Montiel [facility] Work Phone: 03-03-2022 08:00-0400 Systolic blood pressure 111 mm[Hg] MD Montiel [facility] Work Phone: 03-03-2022 05:12-0400 Body weight 56.8 kg MD Montiel [facility] Work Phone: 2022 15:50-0400 Body height 177.8 cm MD Deangelo Elderbrock [facility] Work Phone: 2022 12:30-0400 Body mass index (BMI) [Ratio] 17.9 kg/m2 MD Deangelo Noel [facility] Work Phone: 2022 12:00-0400 Body temperature 97.7 [degF] [facility] Work Phone: 2022 12:00-0400 Diastolic blood pressure 93 mm[Hg] [facility] Work Phone: 2022 12:00-0400 Heart rate 160 /min [facility] Work Phone: 2022 12:00-0400 Respiratory rate 22 /min [facility] Work Phone: 2022 12:00-0400 SaO2% (BldA) [Mass fraction] 98 % [facility] Work Phone: 2022 12:00-0400 Systolic blood pressure 138 mm[Hg] [facility] Work Phone: 2022 10:13-0400 Body height 177.8 cm [facility] Work Phone: 2022 10:13-0400 Body mass index (BMI) [Ratio] 19.3 kg/m2 [facility] Work Phone: 2022 10:13-0400 Body weight 61.23 kg [facility] Work Phone: 01-31-2022 10:10-0400 Body height 177.8 cm [facility] Work Phone: 01-31-2022 10:10-0400 Body mass index (BMI) [Ratio] 18.6 kg/m2 [facility] Work Phone: 01-31-2022 10:10-0400 Body temperature 98 [degF] [facility] Work Phone: 01-31-2022 10:10-0400 Body weight 58.96 kg [facility] Work Phone: 01-31-2022 10:10-0400 Diastolic blood pressure 80 mm[Hg] [facility] Work Phone: 01-31-2022 10:10-0400 Heart rate 75 /min [facility] Work Phone: 01-31-2022 10:10-0400 Respiratory rate 16 /min [facility] Work Phone: 01-31-2022 10:10-0400 SaO2% (BldA) [Mass fraction] 99 % [facility] Work Phone: 01-31-2022 10:10-0400 Systolic blood pressure 92 mm[Hg] [facility] Work Phone: 01-19-2022 09:41-0400 Body mass index (BMI) [Ratio] 16.5 kg/m2 [facility] Work Phone: 01-19-2022 09:41-0400 Body temperature 97.9 [degF] [facility] Work Phone: 01-19-2022 09:41-0400 Body weight 52.16 kg [facility] Work Phone: 01-19-2022 09:41-0400 Diastolic blood pressure 70 mm[Hg] [facility] Work Phone: 01-19-2022 09:41-0400 Heart rate 106 /min [facility] Work Phone: 01-19-2022 09:41-0400 Respiratory rate 16 /min [facility] Work Phone: 01-19-2022 09:41-0400 SaO2% (BldA) [Mass fraction] 97 % [facility] Work Phone: 01-19-2022 09:41-0400 Systolic blood pressure 105 mm[Hg] [facility] Work Phone: 01-15-2017 03:55-0400 Body surface area Derived from formula 240.08 mL/min Calista Stafford MD [facility] Work Phone: 12-10-2016 16:10-0400 BP Diastolic 66 mm[Hg] Edwina Quintero YARN W[employer]ER [facility] Work Phone: 12-10-2016 16:10-0400 BP Systolic 104 mm[Hg] Edwina Quintero [employer] W[employer] [facility] Work Phone: 12-10-2016 16:10-0400 Pulse (Heart Rate) 86 /min Edwina Quintero [employer] [facility] Work Phone: 12-10-2016 16:10-0400 Respiratory Rate 14 /min Edwina Quintero NP [facility] Work Phone: 12-10-2016 16:10-0400 Weight 67.13 kg Edwina Quintero [employer] [facility] Work Phone: 11-12-2016 15:36-0400 BMI (Body Mass Index) 24.79 kg/m2 Edwina Quintero [employer] [facility] Work Phone: 11-12-2016 15:36-0400 Body Temperature 98.01 [degF] Edwina Quintero [employer] W[employer] [facility] Work Phone: 11-12-2016 15:36-0400 Body Temperature 98 [degF] Edwina Quintero [employer] W[employer] [facility] Work Phone: 11-12-2016 15:36-0400 BP Diastolic 69 mm[Hg] Edwina Quintero [employer] W[employer] [facility] Work Phone: 11-12-2016 15:36-0400 BP Systolic 105 mm[Hg] Edwina Quintero [employer] W[employer] [facility] Work Phone: 11-12-2016 15:36-0400 BSA (Body Surface Area) 1.75 m2 Edwina Quintero [employer] W[employer] [facility] Work Phone: 11-12-2016 15:36-0400 Height 165.1 cm [facility] Work Phone: 11-12-2016 15:36-0400 Pulse (Heart Rate) 90 /min Edwina Regalado [facility] Work Phone: 11-12-2016 15:36-0400 Pulse Oximetry 98 % [facility] Work Phone: 11-12-2016 15:36-0400 Respiratory Rate 14 /min Edwina Regalado [facility] Work Phone: 11-12-2016 15:36-0400 Weight 67.58 kg [facility]ina [facility] Work Phone: 11-12-2016 15:36-0400 Weight 67.59 kg Ed[facility]ina [facility] Work Phone: Encounters Encounter Date Encounter Type Care Provider Facility Start: 06-09-2025 ambulatory No Primary Car e Physician Facility:[facility] Start: 06-09-2025 End: 06-10-2025 Evaluation and management of inpatient No Primary Care Physician Facility:[facility] Start: 05-25-2025 End: 05-26-2025 Emergency department patient visit Trent Vega DO -Emergency Department Work Phone: Start: 04-21-2025 End: 04-21-2025 Emergency department patient visit No Primary Care Physician -Emergency Department Work Phone: Start: 03-04-2025 End: 03-04-2025 Emergency department patient visit DR LIZ ROSE DO [facility] Start: 02-28-2025 Non-patient / Non-visit Dr. Malena Nelson MD -[facility] Work Phone: Start: 02-27-2025 End: 02-28-2025 ambulatory No Primary Care Physician Facility:[facility] Start: 02-27-2025 End: 02-28-2025 Evaluation and management of inpatient Dr. Marcelina Erickson MD -Intensive Care Unit Work Phone: Start: 02-05-2025 End: 02-05-2025 ambulatory No Primary Care Physician Facility:[facility] Start: 02-05-2025 End: 02-05-2025 Evaluation and management of inpatient Dr. Sarah Oh MD -Intensive Care Unit Work Phone: Start: 01-26-2025 End: 01-26-2025 Emergency department patient visit Dr. Keisha Handy DO Work Phone: -Emergency Department Work Phone: Start: 12-18-2024 ambulatory No Primary Car e Physician Facility:[facility] Start: 12-13-2024 End: 12-14-2024 Emergency [...] Work Phone: Start: 10-10-2024 End: 10-10-2024 ambulatory Facility:[facility] Start: 01-03-2023 End: 01-04-2023 Emergency department patient visit MD Deangelo ORELLANA [facility]-Emergency Department Start: 12-09-2022 End: 12-09-2022 Emergency department patient visit MD Deangelo ORELLANA [facility]-Emergency Department Start: 12-03-2022 End: 12-03-2022 Emergency department patient visit MD Deangelo [facility]gency [facility] Start: 11-17-2022 End: 11-17-2022 Emergency department patient visit MD Montiel [facility]-Emergency Department Start: 10-13-2022 Non-patient / Non-visit MD Alessandra kapadia [facility] Start: 10-13-2022 End: 10-13-2022 ambulatory MD Montiel [facility] Work Phone: Start: 10-13-2022 End: 10-13-2022 Patient encounter procedure MD [facility] Start: 10-13-2022 End: 10-13-2022 Emergency department patient visit MD [facility]Emergency Department Start: 10-05-2022 Orders Only Deangelo garcía MD Work Phone: [facility] Start: 10-03-2022 Telephone encounter Deangelo canales MD Work Phone: [facility] Comment on above: Letter Start: 09-22-2022 Telephone encounter Phillip jiménez APRN.CLAY ARTIST Work Phone: [facility] Comment on above: Appointment Start: 08-24-2022 End: 08-24-2022 Emergency department patient visit MD [facility] Start: 08-21-2022 Refill Phillip HINOJOSA RN.CLAY ARTIST Work Phone: [facility] Comment on above: Refill Request Start: 08-20-2022 Non-patient / Non-visit MD Deangelo Escobar [facility] Start: 08-19-2022 Non-patient / Non-visit MD Deangelo Escobar [facility] Start: 08-18-2022 Non-patient / Non-visit MD Deangelo Escobar [facility] Start: 08-18-2022 End: 08-20-2022 Evaluation and management of inpatient MD [facility] 2 Start: 07-09-2022 Telephone encounter Deangelo canales MD Work Phone: [facility] Comment on above: Insurance Authorizat ion (Maria Teresa Ballesteros ) Start: 07-07-2022 End: 07-07-2022 Emergency department patient visit MD [facility] Start: 07-07-2022 End: 07-07-2022 Patient encounter lilo Caldera APRN.CLAY ARTIST Work Phone: [facility] Comment on above: Chest pain, unspecif ied type (Primary Dx); High blood sugar APPOINTMENT CANCELLE D (Primary Dx); Uncontrolled type 1 diabetes mellitus with hypoglycemia without coma (HCC); Type I (juvenile type) diabetes mellitus without mention of complication, not stated as uncontrolled (HCC) Start: 06-30-2022 End: 07-01-2022 [facility] Start: 06-11-2022 Telephone encounter Deangelo canales MD Work Phone: [facility] Comment on above: Results Start: 06-09-2022 Telephone encounter Deangelo canales MD Work Phone: [facility] Comment on above: Urgent value Start: 06-07-2022 Telephone encounter Radha Hameed APRN.CLAY ARTIST Work Phone: [facility] Comment on above: Medication Problem Refill Request Start: 03-04-2022 Patient Outreach Meena alexandra APRN.CLAY ARTIST Work Phone: [facility] Comment on above: Transition Of Care Start: 03-03-2022 [facility] / [facility] Start: 2022 Non-patient / Non-visit [facility] Start: 2022 End: 03-03-2022 Evaluation and management of inpatient [facility]-Intensive Care Unit Start: 01-31-2022 End: 01-31-2022 Emergency department patient visit [facility]-Emergency Department Start: 01-19-2022 End: 01-19-2022 Emergency department patient visit [facility]-Emergency Department Start: 11-17-2021 ambulatory Phillip HINOJOSA RN.CLAY ARTIST Work Phone: [facility] [place] Comment on above: PHMA/Care Gap Outrea ch Start: 06-26-2021 Telephone encounter Deangelo canales MD Work Phone: [facility] Comment on above: Insurance Authorizat ion Start: 04-21-2018 End: 04-22-2018 [facility] Start: 03-20-2018 End: 03-23-2018 Evaluation and management of inpatient GLO KOENIG [facility] Start: 01-13-2018 End: 01-14-2018 Ambulatory [facility] Start: 12-27-2017 End: 12-27-2017 Ambulatory [facility] Start: 12-21-2017 End: 12-22-2017 Ambulatory [facility] Start: 12-17-2017 End: 12-18-2017 Ambulatory [facility] Start: 12-17-2017 End: 12-17-2017 Ambulatory [facility] Start: 12-10-2017 End: 12-11-2017 Ambulatory [facility] Start: 11-20-2017 End: 12-06-2017 Evaluation and management of inpatient [facility] Procedures Date Procedure Procedure Detail Performing Clinician Start: 06-10-2025 Estimated creatinine clearance No Primary Care Physician Start: 06-10-2025 Serum inorganic phos phate measurement No Primary Care Physician Start: 06-09-2025 Urnls dip stick/tabl et reagent auto microscopy No Primary Care Physician Start: 05-26-2025 Osmolality measureme nt, serum No Primary Care Physician Start: 05-25-2025 Estimated creatinine clearance No Primary Care Physician Start: 04-21-2025 Plain X-ray of clavicle No [...] Adult depression scr eening assessment Phillip Howe APRN.CLAY ARTIST Work Phone: Start: 11-12-2016 End: 11-12-2016 *Microalbumin, Creatine Ratio, rand urine Edwina Quintero YARN WASHER Work Phone: Start: 11-12-2016 End: 11-13-2016 HbA1c Edwina Quintero YARN WASHER Work Phone: Respiratory Panel (PCR) MD Alex [...] profile DTAP,TDAP,TD (8 - Td or Tdap) [facility] Start: 06-10-2025 Non-patient / Non-visit Non-patient / Non-visit -[place] [facility] Work Phone: Start: 06-10-2025 Patient discharge [facility] Start: 06-10-2025 Care planning and problem solving actions [facility] Start: 06-10-2025 End: 06-10-2025 [facility] Start: 06-10-2025 End: 06-10-2025 Care regimes management [facility] Start: 06-10-2025 Notification of physician [facility] Start: 06-10-2025 End: 06-10-2025 [facility] Start: 06-10-2025 Care regimes management [facility] Start: 06-10-2025 Notification of physician [facility] Start: 06-10-2025 Following clinical pathway protocol [facility] Start: 06-09-2025 End: 06-10-2025 [facility] Start: 06-09-2025 Following clinical pathway protocol [facility] Start: 06-09-2025 Assessment of risk of venous thromboembolism [facility] Start: 06-09-2025 Care regimes management [facility] Start: 06-09-2025 Continuous pulse oximetry [facility] Start: 06-09-2025 Elevation of head of bed [facility] Start: 06-09-2025 Inhalation therapy procedure [facility] Start: 06-09-2025 Insertion of catheter into peripheral vein [facility] Start: 06-09-2025 Introduction of urinary catheter [facility] Start: 06-09-2025 Lab findings surveillance [facility] Start: 06-09-2025 Measuring intake and output [facility] Start: 06-09-2025 Nil by mouth [facility] Start: 06-09-2025 Notification of physician [facility] Start: 06-09-2025 Oxygen therapy [facility] Start: 06-09-2025 [facility] Start: 06-09-2025 Providing care according to standard [facility] Start: 06-09-2025 Provision of activity privileges [facility] Start: 06-09-2025 Referral to service [facility] Start: 06-09-2025 Tobacco use cessation education [facility] Start: 06-09-2025 Vital signs measurements [facility] Start: 06-09-2025 Admission procedure [facility] Start: 06-09-2025 End: 06-10-2025 Evaluation and management of inpatient DKA (diabetic ketoacidosis) -Intensive Care Unit Work Phone: Start: 06-09-2025 [facility] Start: 05-26-2025 [facility] Start: 04-21-2025 [facility] Start: 02-28-2025 Patient discharge [facility] Start: 02-27-2025 Care regimes management [facility] Start: 02-27-2025 Notification of physician [facility] Start: 02-27-2025 [facility] Start: 02-27-2025 Assessment of risk of venous thromboembolism [facility] Start: 02-27-2025 Care regimes management [facility] Start: 02-27-2025 Insertion of catheter into peripheral vein [facility] Start: 02-27-2025 Lab findings surveillance [facility] Start: 02-27-2025 Measuring intake and output [facility] Start: 02-27-2025 Nil by mouth [facility] Start: 02-27-2025 Notification of physician [facility] Start: 02-27-2025 [facility] Start: 02-27-2025 Providing care according to standard [facility] Start: 02-27-2025 Vital signs measurements [facility] Start: 02-27-2025 End: 02-27-2025 [facility] Start: 02-27-2025 Following clinical pathway protocol [facility] Start: 02-27-2025 Gas panel - Venous blood [facility] Start: 02-27-2025 Verification routine [facility] Start: 02-27-2025 Admission procedure [facility] Start: 02-27-2025 Hospital admission, emergency, from emergency room, medical nature [facility] Start: 02-27-[address] [facility] Start: 02-05-2025 Patient discharge [facility] Start: 02-05-2025 End: 02-05-2025 [facility] Start: 02-05-2025 Care regimes management [facility] Start: 02-05-2025 Notification of physician [facility] Start: 02-05-2025 Assessment of risk of venous thromboembolism [facility] Start: 02-05-2025 Continuous pulse oximetry [facility] Start: 02-05-2025 End: 02-05-2025 Following clinical pathway protocol [facility] Start: 02-05-2025 Incentive spirometry [facility] Start: 02-05-2025 Inhalation therapy procedure [facility] Start: 02-05-2025 Insertion of catheter into peripheral vein [facility] Start: 02-05-2025 Introduction of urinary catheter [facility] Start: 02-05-2025 Lab findings surveillance [facility] Start: 02-05-2025 Measuring intake and output [facility] Start: 02-05-2025 Notification of physician [facility] Start: 02-05-2025 Oxygen therapy [facility] Start: 02-05-2025 Patient education [facility] Start: 02-05-2025 Patient referral to [facility] Start: 02-05-2025 Providing care according to standard [facility] Start: 02-05-2025 Provision of activity privileges [facility] Start: 02-05-2025 Referral to service [facility] Start: 02-05-2025 Tobacco use cessation education [facility] Start: 02-05-2025 Vital signs measurements [facility] Start: 02-05-2025 [facility] Start: 02-05-2025 Admission procedure [facility] Start: 02-05-2025 Hospital admission, emergency, from emergency room, medical nature [facility] Start: 02-05-2025 Verification routine [facility] Start: 02-05-2025 Serum inorganic phosphate measurement [facility] Start: 01-26-2025 [facility] Start: 01-26-2025 [facility] Start: 12-14-2024 [facility] Start: 12-12-2024 [facility] Start: 11-11-2024 [facility] Start: 10-19-2024 [facility] Start: 10-19-2024 [facility] Start: 08-25-2023 ANNUAL PCP TEAM CHRONIC DISEASE VISIT ANNUAL PCP TEAM CHRONIC DISEASE VISIT [facility] Start: 07-07-2023 ANNUAL PCP TEAM CHRONIC DISEASE VISIT ANNUAL PCP TEAM CHRONIC DISEASE VISIT [facility] Start: 06-09-2023 ANNUAL PCP TEAM CHRONIC DISEASE VISIT ANNUAL PCP TEAM CHRONIC DISEASE VISIT [facility] Start: 06-09-2023 Hepatitis B surface antibody level LDL CHOLESTEROL [facility] Start: 01-03-2023 [facility] Start: 12-09-2022 [facility] Start: 12-04-2022 [facility] Start: 12-03-2022 [facility] Start: 11-18-2022 [facility] Start: 11-17-2022 [facility] Start: 10-13-2022 Assay of troponin quantitative ASSAY OF TROPONIN QUANT [facility] Start: 10-13-2022 Basic metabolic panel calcium total METABOLIC PANEL TOTAL CA [facility] Start: 10-13-2022 Blood count complete auto&auto difrntl wbc COMPLETE CBC W/AUTO DIFF WBC [facility] Start: 10-13-2022 Ecg routine ecg w/least 12 lds trcg only w/o i&r ELECTROCARDIOGRAM TRACING [facility] Start: 10-13-2022 Iv infusion hydration each additional hour HYDRATE IV INFUSION ADD-ON [facility] Start: 10-13-2022 Iv infusion hydration initial 31 min-1 hour HYDRATION IV INFUSION INIT [facility] Start: 10-13-2022 Radiologic exam chest single view X-RAY EXAM CHEST 1 VIEW [facility] Start: 09-09-2022 Hemoglobin A1c/Hemoglobin.total in Blood HBA1C [facility] Start: 08-20-2022 Patient discharge [facility] Start: 08-19-2022 Care planning and problem solving actions [facility] Start: 08-19-2022 Care regimes management [facility] Start: 08-19-2022 Notification of physician [facility] Start: 08-19-2022 [facility] Start: 08-18-2022 End: 08-19-2022 [facility] Start: 08-18-2022 Ambulation without limitation [facility] Start: 08-18-2022 Assessment of risk of venous thromboembolism [facility] Start: 08-18-2022 Continuous pulse oximetry [facility] Start: 08-18-2022 End: 08-18-2022 Following clinical pathway protocol [facility] Start: 08-18-2022 Inhalation therapy procedure [facility] Start: 08-18-2022 Insertion of catheter into peripheral vein [facility] Start: 08-18-2022 Lab findings surveillance [facility] Start: 08-18-2022 Measuring intake and output [facility] Start: 08-18-2022 Notification of physician [facility] Start: 08-18-2022 Patient education [facility] Start: 08-18-2022 Patient referral to dietitian [facility] Start: 08-18-2022 Providing care according to standard [facility] Start: 08-18-2022 Vital signs measurements [facility] Start: 08-18-2022 Admission procedure [facility] Start: 08-09-2022 DEPRESSION ASSESSMENT DEPRESSION ASSESSMENT [facility] Start: 07-07-2022 [facility] Start: 06-30-2022 [facility] Start: 06-25-2022 ANNUAL PCP TEAM CHRONIC DISEASE VISIT ANNUAL PCP TEAM CHRONIC DISEASE VISIT [facility] Start: 04-09-2022 Influenza vaccination INFLUENZA (#1) [facility] Start: 03-03-2022 Patient discharge [facility] Work Phone: Start: 03-03-2022 Care regimes management [facility] Work Phone: Start: 03-03-2022 Notification of physician [facility] Work Phone: Start: 03-03-2022 Patient referral to dietitian [facility] Work Phone: Start: 03-03-2022 [facility] Work Phone: Start: 2022 [facility] Work Phone: Start: 2022 Application of intermittent pneumatic compression device [facility] Work Phone: Start: 2022 Assessment of risk of venous thromboembolism [facility] Work Phone: Start: 2022 Continuous pulse oximetry [facility] Work Phone: Start: 2022 End: 2022 Following clinical pathway protocol [facility] Work Phone: Start: 2022 Insertion of catheter into peripheral vein [facility] Work Phone: Start: 2022 Lab findings surveillance [facility] Work Phone: Start: 2022 Measuring intake and output [facility] Work Phone: Start: 2022 Notification of physician [facility] Work Phone: Start: 2022 Patient education [facility] Work Phone: Start: 2022 Patient referral to dietitian [facility] Work Phone: Start: 2022 Providing care according to standard [facility] Work Phone: Start: 2022 Vital signs measurements [facility] Work Phone: Start: 2022 [facility] Work Phone: Start: 2022 Blood chemistry [facility] Work Phone: Start: 2022 Verification routine [facility] Work Phone: Start: 2022 Admission procedure [facility] Work Phone: Start: 2022 Urinalysis complete panel - Urine [facility] Work Phone: Start: 2022 End: 2022 [facility] Work Phone: Start: 2022 [facility] Work Phone: Start: 01-08-2022 Hepatitis B screening URINE ALBUMIN:CREATININE RATIO [facility] Start: 01-08-2022 Hepatitis B surface antibody level LDL CHOLESTEROL [facility] Start: 11-17-2021 End: 01-17-2022 ALBUMIN/CREAT RATIO RND UR ALBUMIN/CREAT RATIO RND UR Lab Routine Uncontrolled type 1 diabetes mellitus with hypoglycemia without coma (HCC) Expected: 11/17/2021, Expires: 01/17/2022 [facility] Work Phone: Comment on above: Expected: 11/17/2021, Expires: 2 Start: 08-09-2021 DEPRESSION ASSESSMENT DEPRESSION ASSESSMENT [facility] Start: 04-10-2021 Hemoglobin A1c/Hemoglobin.total in Blood HBA1C [facility] Start: 09-22-2020 3 comp foot exam completed DIABETIC FOOT EXAM [facility] Start: 06-22-2019 Adult depression screening assessment DEPRESSION SCREENING [facility] Start: 05-11-2017 Hepatitis C antibody, confirmatory test DILATED RETINAL EXAM [facility] Start: 03-15-2017 End: 03-15-2017 Appointment Appointment [facility] Work Phone: Start: 03-15-2017 End: 03-15-2017 Appointment Appointment [facility] [place] Work Phone: Start: 12-10-2016 End: 12-10-2016 Appointment Appointment [facility] Work Phone: Start: 12-10-2016 End: 12-12-2016 *CMP Complete Metabolic Panel *CMP Complete Metabolic Panel [facility] Work Phone: Start: 12-10-2016 End: 12-12-2016 HbA1c *HgA1C [facility] Work Phone: Start: 12-10-2016 End: 12-12-2016 Lipid panel [AGGREGATE] *Lipid Profile [facility] Work Phone: Start: 12-10-2016 End: 12-12-2016 Office/outpatient visit, est, level 3 [id number] Vst-Est Level III [facility] Work Phone: Start: 11-12-2016 End: 11-12-2016 *CMP Complete Metabolic Panel *CMP Complete Metabolic Panel [facility] Work Phone: Start: 11-12-2016 End: 11-12-2016 *Microalbumin, Creatine Ratio, rand urine *Microalbumin, Creatine Ratio, rand urine [facility] Work Phone: Start: 11-12-2016 End: 11-13-2016 HbA1c *HgA1C [facility] Work Phone: Start: 11-12-2016 End: 11-12-2016 Lipid panel [AGGREGATE] *Lipid Profile [facility] Work Phone: Start: 2015 HEPATITIS C SCREENING HEPATITIS C SCREENING [facility] Start: 2015 HIV SCREENING HIV SCREENING [facility] Start: 10-10-2013 PNEUMOCOCCAL (2 - PPSV23 if available, else PCV20) PNEUMOCOCCAL (2 - PPSV23 if available, else PCV20) [facility] Start: 10-10-2013 PNEUMOCOCCAL (2 - PPSV23 or PCV20) PNEUMOCOCCAL (2 - PPSV23 or PCV20) [facility] Start: 10-02-2013 HPV VACCINE (3 - Male 3-dose series) HPV VACCINE (3 - Male 3-dose series) [facility] Start: 2013 ONE PNEUMOVAX PRIOR TO AGE 65 ONE PNEUMOVAX PRIOR TO AGE 65 [facility] Start: 12-05-2012 PNEUMOCOCCAL (2 - PPSV23 if available, else PCV20) PNEUMOCOCCAL (2 - PPSV23 if available, else PCV20) [facility] Start: 2011 PEDS TO ADULT TRANSITION ANNUAL ASSESSMENT PEDS TO ADULT TRANSITION ANNUAL ASSESSMENT [facility] Start: 2009 PEDS TO ADULT TRANSITION INITIAL DISCUSSION PEDS TO ADULT TRANSITION INITIAL DISCUSSION [facility] Start: 2007 MENINGOCOCCAL B: Consider based on risk (1 of 2 - Risk Bexsero 2-dose series) MENINGOCOCCAL B: Consider based on risk (1 of 2 - Risk Bexsero 2-dose series) [facility] Start: 2002 COVID-19 VACCINE (1) COVID-19 VACCINE (1) [facility] Start: 1997 COVID-19 VACCINE (#1) COVID-19 VACCINE (#1) [facility] Anion gap in Serum o r Plasma [facility] Anion gap in Serum o r Plasma [facility] Anion gap measurement [facility] Work Phone: Beta hydroxybutyrate [Mass/volume] in Serum or Plasma [facility] Beta hydroxybutyrate [Mass/volume] in Serum or Plasma [facility] Bilirubin measuremen t, urine [facility] BUN/Creatinine ratio [facility] Work Phone: BUN/Creatinine ratio [facility] BUN/Creatinine ratio [facility] Calcium [Mass/volume ] in Serum or Plasma [facility] Work Phone: Calcium [Mass/volume ] in Serum or Plasma [facility] Calcium [Mass/volume ] in Serum or Plasma [facility] Carbon dioxide, tota l [Moles/volume] in Central venous blood [facility] Carbon dioxide, tota l [Moles/volume] in Central venous blood [facility] Carbon dioxide, tota l [Moles/volume] in Serum or Plasma [facility] Work Phone: Chloride [Moles/volu me] in Serum or Plasma [facility] Work Phone: Creatinine [Mass/volume] in Serum or Plasma [facility] Creatinine [Mass/volume] in Serum or Plasma [facility] Creatinine [Moles/volume] in Serum or Plasma [facility] Work Phone: Erythrocyte mean corpuscular volume determination [facility] Glucose [Mass/volume ] in Serum or Plasma [facility] Work Phone: Glucose [Mass/volume ] in Serum or Plasma [facility] Glucose [Mass/volume ] in Serum or Plasma [facility] Hematocrit [Volume Fraction] of Blood [facility] Hemoglobin [Mass/volume] in Blood [facility] Hemoglobin [Presence ] in Urine [facility] Leukocytes [#/volume ] in Blood [facility] Magnesium measurement [facility] Mean corpuscular hemoglobin concentration determination [facility] Mean corpuscular hemoglobin determination [facility] Measurement of keton es in urine using dipstick [facility] Measurement of renal function [facility] Work Phone: Measurement of renal function [facility] Measurement of renal function [facility] Microscopic urinalysis [facility] Neutrophil count [facility] Neutrophil percent differential count [facility] Organism count, microscopic method [facility] Patient Education [facility] Work Phone: Patient referral [facility] Work Phone: pH of Urine [facility] Platelets [#/volume] in Blood [facility] Potassium [Moles/volume] in Serum or Plasma [facility] Work Phone: Potassium measurement [facility] Potassium measurement [facility] Red blood cell count [facility] Red cell distributio n width determination [facility] Serum chloride measurement [facility] Serum chloride measurement [facility] Sodium [Moles/volume ] in Serum or Plasma [facility] Work Phone: Sodium measurement [facility] Sodium measurement [facility] Specific gravity of Urine [facility] Urea nitrogen [Mass/volume] in Serum or Plasma [facility] Work Phone: Urea nitrogen [Mass/volume] in Serum or Plasma [facility] Urea nitrogen [Mass/volume] in Serum or Plasma [facility] Urine dipstick for glucose [facility] Urine dipstick for leukocyte esterase [facility] Urine dipstick for nitrite [facility] Urine dipstick for protein [facility] Urine examination [facility] Urine microscopy: epithelial cells [facility] Urine microscopy: re d cells [facility] Urobilinogen [Presen ce] in Urine [facility] White blood cell count [facility] Immunizations Immunization Date Immunization Notes Care Provider [facility] 06-10-2025 influenza, seasonal, injectable, preservative free No Primary Care Physician [facility] 06-09-2022 influenza, injectabl e, quadrivalent, contains preservative Deangelo Noel MD Work Phone: [facility] 06-25-2021 influenza, injectabl e, quadrivalent, contains preservative Phillip Charles SERVICES ADVISOR.[employer] Work Phone: [facility] 10-01-2020 tetanus toxoid, reduced diphtheria toxoid, and acellular pertussis vaccine, adsorbed Phillip Charles SERVICES ADVISOR.[employer] Work Phone: [facility] 06-28-2019 influenza, injectabl e, quadrivalent, contains preservative Phillip Charles SERVICES ADVISOR.[employer] Work Phone: [facility] 11-20-2017 tetanus toxoid, reduced diphtheria toxoid, and acellular pertussis vaccine, adsorbed [facility] 05-18-2017 influenza, injectabl e, quadrivalent, preservative free Dr. Keisha Handy DO Work Phone: [facility] 05-18-2017 influenza, seasonal, injectable [facility] 08-28-2015 influenza, injectabl e, quadrivalent, preservative free Phillip Charles SERVICES ADVISOR.[employer] Work Phone: [facility] 08-09-2015 influenza, injectabl e, quadrivalent, preservative free Dr. Keisha Handy DO Work Phone: [facility] 08-09-2015 influenza, seasonal, injectable [facility] 06-13-2014 influenza, seasonal, injectable Phillip Charles SERVICES ADVISOR.[employer] Work Phone: [facility] 06-01-2013 human papilloma viru s vaccine, quadrivalent Phillip Charles SERVICES ADVISOR.[employer] Work Phone: [facility] Work Phone: 06-01-2013 influenza virus vaccine, unspecified formulation Phillip Charles SERVICES ADVISOR.CL[employer] Work Phone: [facility] Work Phone: 06-01-2013 Meningococcal, MCV4, unspecified conjugate formulation(groups A, C, Y and W-135) Hpillip Charles SERVICES ADVISOR.[employer]IST Work Phone: [facility] Work Phone: 10-10-2012 human papilloma viru s vaccine, quadrivalent Phillip Charles SERVICES ADVISOR.CL[employer] Work Phone: [facility] 10-10-2012 pneumococcal conjuga te vaccine, 13 valent Phillip Charles SERVICES ADVISOR.[employer] Work Phone: [facility] 06-03-2010 influenza virus vaccine, unspecified formulation Phillip Charles SERVICES ADVISOR.[employer] Work Phone: [facility] 01-02-2009 Meningococcal, MCV4, unspecified conjugate formulation(groups A, C, Y and W-135) Phillip Howe SERVICES ADVISOR.CL[employer]IST Work Phone: [facility] Work Phone: 01-02-2009 tetanus toxoid, reduced diphtheria toxoid, and acellular pertussis vaccine, adsorbed Phillip Charles SERVICES ADVISOR.[employer] Work Phone: [facility] Work Phone: 06-17-2007 influenza virus vaccine, unspecified formulation Phillip Charles SERVICES ADVISOR.[facility] Work Phone: [facility] Work Phone: 06-28-2003 diphtheria, tetanus toxoids and pertussis vaccine Phillip Charles SERVICES ADVISOR.[employer] Work Phone: [facility] Work Phone: 06-28-2003 poliovirus vaccine, inactivated Phillip Howe SERVICES ADVISOR.[employer] Work Phone: [facility] Work Phone: 04-24-2002 hepatitis B vaccine, pediatric or pediatric/adolescent dosage Phillip Charles SERVICES ADVISOR.[employer] Work Phone: [facility] Work Phone: 04-24-2002 measles, mumps and rubella virus vaccine Phillip Charles SERVICES ADVISOR.[employer] Work Phone: [facility] Work Phone: 03-18-2000 diphtheria, tetanus toxoids and pertussis vaccine Phillip Charles SERVICES ADVISOR.[employer] Work Phone: [facility] Work Phone: 03-18-2000 haemophilus influenz ae type b vaccine, HbOC conjugate Phillip Charles SERVICES ADVISOR.[employer] Work Phone: [facility] Work Phone: 03-18-2000 hepatitis B vaccine, pediatric or pediatric/adolescent dosage Phillip Charles SERVICES ADVISOR.[employer] Work Phone: [facility] Work Phone: 03-18-2000 poliovirus vaccine, inactivated Phillip Charles SERVICES ADVISOR.[facility] Work Phone: [facility] Work Phone: 06-10-1998 measles, mumps and rubella virus vaccine Phillip Charles SERVICES ADVISOR.[facility] Work Phone: [facility] Work Phone: 1997 diphtheria, tetanus toxoids and pertussis vaccine Phillip Charles SERVICES ADVISOR.[employer] Work Phone: [facility] Work Phone: 1997 haemophilus influenz ae type b vaccine, HbOC conjugate Phillip Charles SERVICES ADVISOR.CL[employer] Work Phone: [facility] Work Phone: 1997 diphtheria, tetanus toxoids and pertussis vaccine Phillip Charles SERVICES ADVISOR.[employer] Work Phone: [facility] Work Phone: 1997 haemophilus influenz ae type b vaccine, HbOC conjugate Phillip Charles SERVICES ADVISOR.CL[employer] Work Phone: [facility] Work Phone: 1997 poliovirus vaccine, inactivated Phillip Charles SERVICES ADVISOR.CL[employer]IST Work Phone: [facility] Work Phone: 1997 diphtheria, tetanus toxoids and pertussis vaccine Phillip Charles SERVICES ADVISOR.[employer] Work Phone: [facility] Work Phone: 1997 haemophilus influenz ae type b vaccine, HbOC conjugate Phillip Howe SERVICES ADVISOR.[employer]IST Work Phone: [facility] Work Phone: 1997 hepatitis B vaccine, pediatric or pediatric/adolescent dosage Phillip Howe SERVICES ADVISOR.[employer] Work Phone: [facility] Work Phone: 1997 poliovirus vaccine, inactivated Philliplorri Howe SERVICES ADVISOR.CL[employer] ARTIST Work Phone: [facility] Work Phone: Payers Date Payer Category Payer Private Health Insurance [id number] 2024 Self-pay [id number] 2024 Medicaid [id number] 2021 Medicaid [employer] [id number] 2021-[facility] [phone] [address] [place] [address] Medicaid [id number] 2021 Medicaid [id number] 1997 Unknown [id number]. [id number] Medicaid [id number] Medicaid [id number] Unknown [id number] Unknown [id number]. 462 Unknown [id number]. 462 Unknown [id number]. 462 Unknown [id number] [id number]. 462 Unknown [id number] [id number]. 462 Unknown [id number]. 462 Unknown [id number] [id number]. 462 Unknown [id number] [id number]. 462 Unknown [id number] [id number]. 462 Unknown [id number] [id number]. 462 Unknown [id number] [id number]. 462 Unknown [id number] [id number]. 462 Unknown [id number] [id number]. 462 Unknown [id number] [id number]. 462 Unknown [id number]. 462 Unknown [id number]. 462 Social History Date Type Detail Facility Start: 06-22-2018 End: 06-09-2022 Tobacco smoking status NHIS Never smoked tobacco [facility] History of tobacco use Cigarette Smoker C [facility] History of tobacco use Cigar Smoker [facility] Start: 06-22-2018 End: 06-09-2022 Cigarettes smoked current (pack per day) - Reported 1 [facility] Start: 06-22-2018 End: 06-09-2022 Tobacco use and exposure User of smokeless tobacco [facility] History of tobacco use Chews Tobacco [facility] Start: 09-18-2021 End: 08-25-2022 Alcohol intake Current drinker of alcohol (finding) [facility] Start: 04-12-2018 History SDOH Alcohol Comment once a year [facility] Start: 05-11-2018 Education 13 [facility] Start: 08-28-2015 End: 06-09-2022 Tobacco Comment dad smokes inside and outside. Dad trying to quit. patient chews and smokes also [facility] Start: 1997 Sex Assigned At Not on file C [facility] Start: 08-19-2021 End: 06-09-2022 Exposure to SARS-CoV-2 (event) Not sure [facility] Start: 01-31-2022 End: 01-03-2023 Tobacco smoking status NHIS Unknown if ever smoked [facility] Start: 11-25-2020 None [facility] Start: 11-25-2020 With Family [facility] Start: 11-25-2020 Cigarettes;Chew [facility] Start: 1995 Sex Assigned At Male W [facility] Start: 02-21-2022 End: 03-03-2022 Exposure to SARS-CoV-2 (event) Unable to assess [facility] Work Phone: Start: 10-19-2024 End: 06-10-2025 Tobacco smoking status NHIS Current some day smoker [facility] Start: 10-19-2024 End: 03-04-2025 Sex Male (finding) [facility] Tobacco smoking status [facility] Sex Male [facility] Medical Equipment Procedure Code Equipment Code Equipment Original Text Equipment Identifier Dates INSULIN PEN NEEDLE [id number] Start: 01-16-2014 End: 07-07-2022 Comment on above: [...] 12-23-2017 Pen Needle, Diabetic (Comfort Ez Pen [place]) 31 gauge x 5/16 needle Start: 12-22-2017 End: 12-23-2017 Pen Needle, Diabetic (Comfort Ez Pen [place]) 31 gauge x 5/16 needle Start: 12-23-2017 End: 12-23-2017 Blood Sugar Diagnostic (Freestyle Lite Strips) strip Start: 12-23-2017 End: 12-23-2017 Pen Needle, Diabetic (Comfort Ez Pen [place]) 31 gauge x 5/16 needle Start: 12-22-2017 End: 12-23-2017 Pen Needle, Diabetic (Comfort Ez Pen [place]) 31 gauge x 5/16 needle Start: 12-23-2017 End: 12-23-2017 Blood Sugar Diagnostic (Freestyle Lite Strips) strip Start: 12-23-2017 End: 12-23-2017 Pen Needle, Diabetic (Comfort Ez Pen [place]) 31 gauge x 5/16 needle Start: 12-22-2017 End: 12-23-2017 Pen Needle, Diabetic (Comfort Ez Pen [place]) 31 gauge x 5/16 needle Start: 12-23-2017 End: 12-23-2017 Blood Sugar Diagnostic (Freestyle Lite Strips) strip Start: 12-23-2017 End: 12-23-2017 Pen Needle, Diabetic (Comfort Ez Pen [place]) 31 gauge x 5/16 needle Start: 12-22-2017 End: 12-23-2017 Pen Needle, Diabetic (Comfort Ez Pen [place]) 31 gauge x 5/16 needle Start: 12-23-2017 End: 12-23-2017 Blood Sugar Diagnostic (Freestyle Lite Strips) strip Start: 12-23-2017 End: 12-23-2017 Pen Needle, Diabetic (Comfort Ez Pen [place]) 31 gauge x 5/16 needle Start: 12-22-2017 End: 12-23-2017 Pen Needle, Diabetic (Comfort Ez Pen [place]) 31 gauge x 5/16 needle Start: 12-23-2017 End: 12-23-2017 Blood Sugar Diagnostic (Freestyle Lite Strips) strip Start: 12-23-2017 End: 12-23-2017 Pen Needle, Diabetic (Comfort Ez Pen [place]) 31 gauge x 5/16 needle Start: 12-22-2017 End: 12-23-2017 Pen Needle, Diabetic (Comfort Ez Pen [place]) 31 gauge x 5/16 needle Start: 12-23-2017 End: 12-23-2017 Blood Sugar Diagnostic (Freestyle Lite Strips) strip Start: 12-23-2017 End: 12-23-2017 Pen Needle, Diabetic (Comfort Ez Pen [place]) 31 gauge x 5/16 needle Start: 12-22-2017 End: 12-23-2017 Pen Needle, Diabetic (Comfort Ez Pen [place]) 31 gauge x 5/16 needle Start: 12-23-2017 End: 12-23-2017 Blood Sugar Diagnostic (Freestyle Lite Strips) strip Start: 12-23-2017 End: 12-23-2017 Pen Needle, Diabetic (Comfort Ez Pen [place]) 31 gauge x 5/16 needle Start: 12-22-2017 End: 12-23-2017 Pen Needle, Diabetic (Comfort Ez Pen [place]) 31 gauge x 5/16 needle Start: 12-23-2017 End: 12-23-2017 Blood Sugar Diagnostic (Freestyle Lite Strips) strip Start: 12-23-2017 End: 12-23-2017 Pen Needle, Diabetic (Comfort Ez Pen [place]) 31 gauge x 5/16 needle Start: 12-22-2017 End: 12-23-2017 Pen Needle, Diabetic (Comfort Ez Pen [place]) 31 gauge x 5/16 needle Start: 12-23-2017 End: 12-23-2017 Blood Sugar Diagnostic (Freestyle Lite Strips) strip Start: 12-23-2017 End: 12-23-2017 Pen Needle, Diabetic (Comfort Ez Pen [place]) 31 gauge x 5/16 needle Start: 12-22-2017 End: 12-23-2017 Pen Needle, Diabetic (Comfort Ez Pen [place]) 31 gauge x 5/16 needle Start: 12-23-2017 End: 12-23-2017 Blood Sugar Diagnostic (Freestyle Lite Strips) strip Start: 12-23-2017 End: 12-23-2017 Pen Needle, Diabetic (Comfort Ez Pen [place]) 31 gauge x 5/16 needle Start: 12-22-2017 End: 12-23-2017 Pen Needle, Diabetic (Comfort Ez Pen [place]) 31 gauge x 5/16 needle Start: 12-23-2017 End: 12-23-2017 Blood Sugar Diagnostic (Freestyle Lite Strips) strip Start: 12-23-2017 End: 12-23-2017 Pen Needle, Diabetic (Comfort Ez Pen [place]) 31 gauge x 5/16 needle Start: 12-22-2017 End: 12-23-2017 Pen Needle, Diabetic (Comfort Ez Pen [place]) 31 gauge x 5/16 needle Start: 12-23-2017 End: 12-23-2017 Insulin Syringe-Needle U-100 [Insulin Syringe-Needle U-100 0.5 Ml 31 Gauge X 5/16] (Insulin Syringe-Needle U-100 0.5 Ml 31 Gauge X ) 0.5 mL 31 gauge x 5/16 syringe Start: 10-19-2024 Blood Sugar Diagnostic (Freestyle Lite Strips) strip Start: 12-23-2017 End: 12-23-2017 Pen Needle, Diabetic (Comfort Ez Pen [place]) 31 gauge x 5/16 needle Start: 12-22-2017 End: 12-23-2017 Pen Needle, Diabetic (Comfort Ez Pen [place]) 31 gauge x 5/16 needle Start: 12-23-2017 End: 12-23-2017 Insulin Syringe-Needle U-100 [Insulin Syringe-Needle U-100 0.5 Ml 31 Gauge X 5/16] (Insulin Syringe-Needle U-100 0.5 Ml 31 Gauge X ) 0.5 mL 31 gauge x 5/16 syringe Start: 10-19-2024 Blood Sugar Diagnostic (Freestyle Lite Strips) strip Start: 12-23-2017 End: 12-23-2017 Pen Needle, Diabetic (Comfort Ez Pen [place]) 31 gauge x 5/16 needle Start: 12-22-2017 End: 12-23-2017 Pen Needle, Diabetic (Comfort Ez Pen [place]) 31 gauge x 5/16 needle Start: 12-23-2017 End: 12-23-2017 Insulin Syringe-Needle U-100 (Trueplus Insulin) 0.5 mL 31 gauge x 5/16 syringe Start: 10-19-2024 Blood Sugar Diagnostic (Freestyle Lite Strips) strip Start: 12-23-2017 End: 12-23-2017 Pen Needle, Diabetic (Comfort Ez Pen [place]) 31 gauge x 5/16 needle Start: 12-22-2017 End: 12-23-2017 Pen Needle, Diabetic (Comfort Ez Pen [place]) 31 gauge x 5/16 needle Start: 12-23-2017 End: 12-23-2017 Insulin Syringe-Needle U-100 (Trueplus Insulin) 0.5 mL 31 gauge x 5/16 syringe Start: 10-19-2024 Blood Sugar Diagnostic (Freestyle Lite Strips) strip Start: 12-23-2017 End: 12-23-2017 Pen Needle, Diabetic (Comfort Ez Pen [place]) 31 gauge x 5/16 needle Start: 12-22-2017 End: 12-23-2017 Pen Needle, Diabetic (Comfort Ez Pen [place]) 31 gauge x 5/16 needle Start: 12-23-2017 End: 12-23-2017 Insulin Syringe-Needle U-100 (Trueplus Insulin) 0.5 mL 31 gauge x 5/16 syringe Start: 10-19-2024 Blood Sugar Diagnostic (Freestyle Lite Strips) strip Start: 12-23-2017 End: 12-23-2017 Pen Needle, Diabetic (Comfort Ez Pen [place]) 31 gauge x 5/16 needle Start: 12-22-2017 End: 12-23-2017 Pen Needle, Diabetic (Comfort Ez Pen [place]) 31 gauge x 5/16 needle Start: 12-23-2017 End: 12-23-2017 Insulin Syringe-Needle U-100 (Trueplus Insulin) 0.5 mL 31 gauge x 5/16 syringe Start: 10-19-2024 Blood Sugar Diagnostic (Freestyle Lite Strips) strip Start: 12-23-2017 End: 12-23-2017 Pen Needle, Diabetic (Comfort Ez Pen [place]) 31 gauge x 5/16 needle Start: 12-22-2017 End: 12-23-2017 Pen Needle, Diabetic (Comfort Ez Pen [place]) 31 gauge x 5/16 needle Start: 12-23-2017 End: 12-23-2017 Insulin Syringe-Needle U-100 (Trueplus Insulin) 0.5 mL 31 gauge x 5/16 syringe Start: 10-19-2024 Blood Sugar Diagnostic (Freestyle Lite Strips) strip Start: 12-23-2017 End: 12-23-2017 Pen Needle, Diabetic (Comfort Ez Pen [place]) 31 gauge x 5/16 needle Start: 12-22-2017 End: 12-23-2017 Pen Needle, Diabetic (Comfort Ez Pen [place]) 31 gauge x 5/16 needle Start: 12-23-2017 End: 12-23-2017 Insulin Syringe-Needle U-100 (Trueplus Insulin) 0.5 mL 31 gauge x 5/16 syringe Start: 10-19-2024 Blood Sugar Diagnostic (Freestyle Lite Strips) strip Start: 12-23-2017 End: 12-23-2017 Pen Needle, Diabetic (Comfort Ez Pen [place]) 31 gauge x 5/16 needle Start: 12-22-2017 End: 12-23-2017 Pen Needle, Diabetic (Comfort Ez Pen [place]) 31 gauge x 5/16 needle Start: 12-23-2017 End: 12-23-2017 Insulin Syringe-Needle U-100 (Trueplus Insulin) 0.5 mL 31 gauge x 5/16 syringe Start: 10-19-2024 Blood Sugar Diagnostic (Freestyle Lite Strips) strip Start: 12-23-2017 End: 12-23-2017 Pen Needle, Diabetic (Comfort Ez Pen [place]) 31 gauge x 5/16 needle Start: 12-22-2017 End: 12-23-2017 Pen Needle, Diabetic (Comfort Ez Pen [place]) 31 gauge x 5/16 needle Start: 12-23-2017 End: 12-23-2017 Insulin Syringe-Needle U-100 (Trueplus Insulin) 0.5 mL 31 gauge x 5/16 syringe Start: 10-19-2024 Blood Sugar Diagnostic (Freestyle Lite Strips) strip Start: 12-23-2017 End: 12-23-2017 Pen Needle, Diabetic (Comfort Ez Pen [place]) 31 gauge x 5/16 needle Start: 12-22-2017 End: 12-23-2017 Pen Needle, Diabetic (Comfort Ez Pen [place]) 31 gauge x 5/16 needle Start: 12-23-2017 End: 12-23-2017 Goals Date Patient Goal Desired Activity /State Functional Status Date Assessment Result Facility 06-10-2025 Functional status Standby Assist [facility] Work Phone: 02-28-2025 Functional status Chair [facility] Work Phone: 02-05-2025 Functional status Ambulates;Chair [facility] Work Phone: 08-20-2022 Functional status Up ad abhishek;Bathroom Priv ilege [facility] Work Phone: 03-03-2022 Functional status Ambulates [facility] Work Phone: Mental Status Date Assessment Result Facility 06-10-2025 Cognitive function Voice/Name [facility] Work Phone: 05-25-2025 Cognitive function Voice/Name [facility] Work Phone: 02-28-2025 Cognitive function Voice/Name [facility] Work Phone: 02-27-2025 Cognitive function Voice/Name [facility] Work Phone: 02-05-2025 Cognitive function Level Of Cons ciousness Awake;Alert;Appropriate;Follow s Commands [facility] Work Phone: 01-26-2025 Cognitive function Voice/Name [facility] Work Phone: 10-19-2024 Cognitive function Voice/Name [facility] Work Phone: 01-03-2023 Cognitive function Voice/Name [facility] Work Phone: 12-09-2022 Cognitive function Level Of Cons ciousness Awake;Alert;Appropriate;Follow s Commands [facility] Work Phone: 12-03-2022 Cognitive function Voice/Name [facility] Work Phone: 11-17-2022 Cognitive function Voice/Name [facility] Work Phone: 10-13-2022 Cognitive function Level Of Cons ciousness Awake;Alert;Appropriate;Follow s Commands [facility] Work Phone: 08-20-2022 Cognitive function Voice/Name [facility] Work Phone: 07-07-2022 Cognitive function Level Of Cons ciousness Awake;Alert;Appropriate;Follow s Commands [facility] Work Phone: 06-30-2022 Cognitive function Voice/Name [facility] Work Phone: 03-03-2022 Cognitive function Voice/Name [facility] Work Phone: 2022 Cognitive function Level Of Cons ciousness Awake;Drowsy;Inappropriate [facility] Work Phone: Clinical Notes 05-29-2010 to 06-10-2025 Note Date & Type Note Facility 06-10-2025 Note [facility] 05-26-2025 Discharge summary [facility] 04-21-2025 Discharge summary [facility] 04-21-2025 Radiology Diagnostic study note [facility] Imaging Services [address] [place] [address] Shoulder min 2 Views MR#: [id number] Acct: [id number] Name: UNA COSBY Rep #: [id number] : 1995 M 30 From: Selene Kimble MD PCP: Care Physician,No Primary Status: PRE ER Study:Shoulder min 2 Views Date of Exam: 04/21/25 Exam# [id number] Ordering Dr: Dhiraj Boswell MD PROCEDURE: SHOULDER [...] left shoulder or left clavicle. Reading Location: [id number] CC: Dr. Arik Boswell MD; No Primary Care Physician ~ Commercial Account Officer: Signed [facility] 04-21-2025 Radiology Diagnostic study note [facility] Imaging Services [address] [facility] [place], [place] [address] Clavicle MR#: [id number] Acct: [id number] Name: UNA COSBY Rep #: [id number] : 1995 M 30 From: Selene Kimble MD PCP: Care Physician,No Primary Status: PRE ER Study:Clavicle Date of Exam: 04/21/25 Exam# [id number] Ordering Dr: Dhiraj Boswell MD PROCEDURE: SHOULDER MIN 2 VIEWS; CLAVICLE N/A REASON FOR EXAM: INJURY; INJURY LEFT Clavicle and shoulder pain. TECHNIQUE: Procedure Code: RADKELLI; RADNEW Modality: DX Procedure: SHOULDER MIN 2 VIEWS; [...] left shoulder or left clavicle. Reading Location: [id number] CC: Dr. Arik Boswell MD; No Primary Care Physician ~ Commercial Account Officer: Signed [facility] 04-21-2025 Discharge summary Note Date/Time April 21, 2025 2:17pm [facility] Medical Records Department [address] [place] [address] Emergency Department Summary 04/21/25 MR#: [id number] Acct: [id number] Name: UNA COSBY Rep #:[id number] : 1995 30 From: Arik Boswell MD [...] Funtion Narrative Narrative: Patient is a 30-year-old phzdm-onlj-pwkbiful male with type 1 diabetes. He has [...] is NSAIDs. He received a dose of [place] and Naprosyn in the department. He was [...] your insurance card issued to you by [employer]. 2. Avoid pulling anything towards you of any significant weight or limit overhead work. Print Language: Pakistani Disposition Disposition: Home, Self Care What to do if you have Problems For any increased pain, shortness of breath, bleeding, nausea or vomiting, chestpain, or any unexpected problems, contact your Primary Care Provider. Call [facility] ([phone]) or report to the closest Emergency Room. Call 911 if necessary. 04/21/25 1417 <Electronically signed by Arik Boswell MD> Cosigner Signature (if applicable): CC: No Primary Care Physician ~ Signed [facility] Work Phone: 1(363) 653-617007-27-2025 Hospital Discharge instructions Patient Education 03/04/2025 15:31:58 [...] muscle Coronary artery disease High blood pressure Qfg-flhlj-wdtadft causes: Certain medicines such as asthma inhalers [...] Tell your doctor about any prescription or dppm-xrb-qvflzdw or herbal medicines you take. Follow-up care [...] of the following: Weakness Dizziness Lightheadedness Fainting [phone] [employer]. [address] [place] [address], [place] [address]. All rights reserved. This information is not intended as a substitute for professional medical care. Always follow yourhealthcare professional's instructions. Follow Up Care 03/04/2025 14:00:19 With:ROBBI SALAZAR MD Address: [address] [place] [address]- When:2-4 days With:LAURENT JENKINS Address: [address] [facility] [address] [place] [address] [phone] When:2-4 days With:KANIKA KILLIAN MD Address: [address] [facility] [address] [place] [address]- [phone] When:2-4 days [facility] 07-27-2025 Note Discharge Instructions Thank you for allowing [facility] to assist you with your healthcare needs. The following is importantdischarge information regarding your hospital visit. Diagnosis from Today's Visit Palpitations What to Do Next Instructions from Your Care Team No qualifying data available. Post Acute Orders No qualifying data available. You Need to Schedule the Following Appointments Follow Up with ROBBI SALAZAR MD When:Within 2-4 days Where:[address] [place] [address]- Follow Up with LAURENT JENKINS When:Within 2-4 days Where:[address] [place] [address] [address] [place] [phone] [phone] Follow Up with KANIKA KILLIAN MD When:Within 2-4 days Where:[address] [facility] [address] [place] [phone] Allergies No Known Medication Allergies Medications Please ask your primary doctor or pharmacist before taking any other medication not listed, including over the counter drugs, herbal medications, vitamins and or supplements as they may interact withyour home medications. Please take this list to [...] muscle Coronary artery disease High blood pressure Qqx-pwoae-lvwwtub causes: Certain medicines such as asthma inhalers [...] Tell your doctor about any prescription or gstq-uhi-etzzuma or herbal medicines you take. Follow-up care [...] of the following: Weakness Dizziness Lightheadedness Fainting 8515-3607 [employer]. [address] [place] [address]. All rights reserved. This information is not intended as a substitute for professional medical care. Always follow yourhealthcare professional's instructions. Additional Information VACCINATE! IT SAVES LIVES! Members of the community who have not yet received the COVID-19 vaccine and would like to receive it can visit one of [facility] vaccine clinics. There are many vaccine clinic locations within the [facility]. For locations and available times, please visit [email or web address] It is important to note that some COVID mobile vaccine clinics are held outdoors and may be canceled in rainy or stormy conditions. To learn more about pediatric vaccinations (ages 5-11), we invite you to visit the [facility] webpage. https://www.[email or web address]/pages/[email or web address]-Fkwwj-Pcrrqnohflg-Peyvzqhozj-Zhzpi-Okd stions.htmlTo learn more about the COVID-19 vaccine, we invite you to visit the CDC website for a list of frequently asked questions. https://www.cdc.gov/coronavirus/2019-ncov/vaccines/faq.html [facility] Patient Portal Access Instructions: Stay connected with your healthcare team and access your personal medical information anytime with the [facility] Patient Portal. If you would like a full copy of your medical records please contact the [facility] Medical Records Department Wednesday through Wednesday between 8a.m. and 4:30p.m. Please follow the directions below to access the portal: 1.Access the email account you provided upon registration to the [facility].2.Look for an invitation email from [facility].3.Open the email and access the invitation link: Accept Invitation to [facility]4.Fill in the required serna to create your account. Sign into www.[employer] with your username and password that you [...] you will allow to register on the [facility] Patient Portal for access to your information. You can also access the [facility] Patient Portal on the [employer] verito. Simply click on Health Records under Shut Downta and then click on the [facility] logo. [...] Call your local pharmacy or go to http://bit.Merge.rs AG/3M3Vu8c to find one close to you.3.Make use of household items: Use cat litter or old coffee grounds to dispose medications if other options arenot available. Mix your drugs with these household products, seal them in an airtight container andthrow it into the garbage. Call [facility]: [phone] to be sure your drugs can be [...] aware that I should contact my doctor. Patient/Traffic Expert Signature: Date/Time: Relationship to Patient: Witness Name/Signature: Date/Time: [facility]07-27-2025 Note* Exam Date Time Procedure Performing Provider Status 03/04/25 2:10 PM EKG [ED AOH] - CV LIZ ROSE DO; Au (Verified) ECG Final Report Sinus tachycardia Probable left atrial enlargement ST elev, probable normal early repol pattern Electronic Signature: LIZ ROSE DO 03/04/2025 14:20:27 [facility]07-23-2025 [facility] 02-28-2025 Progress note [facility] Medical Records Department [address] [place] [address] Progress Note - Hospitalist 02/27/252146 MR#: [id number] Acct: [id number] Name: UNA COSBY Rep #:[id number] : 1995 From: Sarah Oh MD PCP: Care Physician,No Primary Status :ADM IN Location: ICU CVICU20 3-1 Hospitalist Note AG closed x 2, bicarb 25. Will transition off insulin drip to home insulin regimen. Will transitionto ADA diet. If no issues with transition will plan to change level of care to MS status. 02/27/252146 Cosigner Signature (if applicable): CC: ~ Signed [facility]07-23-2025 Discharge summary [facility] Medical Records Department [address] [place] [address] Instructions for Home/Discharge Instructions 02/28/25 0853 MR#: [id number] Acct: [id number] Name: UNA COSBY Rep #:[id number] : 1995 From: Berny yeager MD PCP: Care Physician,No [...] MD; No Primary Care Physician ~ Signed [facility]07-23-2025 Discharge summary [facility] Medical Records Department [address] [place] [address] Emergency Department Summary 02/27/25 MR#: [id number] Acct: [id number] Name: UNA COSBY Rep #:[id number] : 1995 29 From: Arik Boswell MD [...] % (Auto) 59.1 Lymph % (Auto) 28.6 Saline % (Auto) 7.6 Eos % (Auto) 3.4 [...] concern for hyperkalemia. Hispotassium is only 5.3. WV interval is 156 ms. QRS duration 82 ms. QT kcdfladn203 ms. [place] is normal.) Critical Care Time Critical Care Time: Yes Critical care time (excluding procedures): 30-74 minutes (31), Including time spent: (History, physical, documentation, interventional titration laboratory results, EKG and treatment for DKA.), Discussing w/Patient &/or Family/Electric Meter Installer, Discussing w/Consultants and Arranging Admission or Transfer [...] Primary [Primary Care Provider] - Print Language: Pakistani Disposition Disposition: Acute Care Hospital [facility] What to do if you have Problems For any increased pain, shortness of breath, bleeding, nausea or vomiting, chestpain, or any unexpected problems, contact your Primary Care Provider. Call [facility] ([phone]) or report tothe closest Emergency Room. Call 911 if necessary. 02/28/25818 Cosigner Signature (if applicable): CC: No Primary Care Physician ~ Signed [facility]07-22-2025 Progress note Author Sarah Oh [facility] Note Date/Time February 28, 2025 9:47 am [facility] Medical Records Department [address] [place] [address] Progress Note - Hospitalist 02/27/252146 MR#: [id number] Acct: [id number] Name: UNA COSBY Rep #:[id number] : 1995 29 From: Sarah Oh MD [...] Cosigner Signature (if applicable): CC: ~ Signed [facility] Work Phone: 1(898) 407-237607-22-2025 History and physical note Author Marcelina Erickson [facility] Note Date/Time February 27, 2025 3:01 pm [facility] Medical Records Department [address] [facility] [place] [address] H&P Exam - Hospitalist 02/27/25 1452 MR#: [id number] Acct: [id number] Name: UNA COSBY Rep #:[id number] : 1995 29 From: Marcelina Erickson MD PCP: Care Physician,No Primary Status :ADM IN Location: ICU CVICU 3-1 HPI - General General Date of Admission: 02/27/25 Date of Service: 02/27/25 Chief Complaint: Heart palpitations HPI Narrative UNA COSBY, is y36-dcrg-csv male history of type 1 diabetes and tobacco usepresented to [facility] ED 02/27/2025 with complaints of [...] at bedtime. Per patient he reports compliance [facility] Medical History Noncompliance with medication regimen Anxiety [...] Neut % (Auto) 59.1, Lymph % (Auto) 28.6,Saline % (Auto) 7.6, Eos % (Auto) 3.4, [...] Clarity Clear, Urine pH 6.0, Ur Specific [place] 1.010, Urine Protein 15 H, Urine Glucose [...] if patient does not already have an contestant coordinator would benefit from establishingcare with 1 # [...] Erickson MD Charges/Coding Visit Charges Inpatient E&M: 55986 Init Hosp L2 02/27/25 1501 <Electronically signed by Marcelina Erickson MD> Cosigner Signature (if applicable): CC: Dr. Marcelina Erickson MD; No Primary Care Physician~ Signed [facility] Work Phone: 1(977) 282-286907-22-2025 Evaluation note* Diagnosis Onset Date Resolution Status Admit Date Acute dehydration resolved February 272024 2:52pm Diabetic ketoacidosis associated with type 1 diabetes mellitus resolved February 27 2:52pm DKA (diabetic ketoacidosis) acute June 09, 2025 7:42pm DM type 1 (diabetes mellitus , type 1) chronic June 09 7:42pm [facility] Work Phone: 1(640) 411-364007-22-2025 History and physical note [facility] Medical Records Department [address] [place] [address] H&P Exam - Hospitalist 02/27/25 1452 MR#: [id number] Acct: [id number] Name: UNA COSBY Rep #:[id number] : 1995 29 From: Marcelina Erickson MD PCP: Care Physician,No Primary Status :ADM IN Location: ICU CVICU20 3-1 HPI - General General Date of Admission: 02/27/25 Date of Service: 02/27/25 Chief Complaint: Heart palpitations HPI Narrative UNA COSBY, is i77-zkbl-kij male history of type 1 diabetes and tobacco usepresented to [facility] ED 02/27/2025 with complaints of [...] at bedtime. Per patient he reports compliance [facility] Medical History Noncompliance with medication regimen Anxiety [...] Neut % (Auto) 59.1, Lymph % (Auto) 28.6,Saline % (Auto) 7.6, Eos % (Auto) 3.4, [...] Clarity Clear, Urine pH 6.0, Ur Specific [place] 1.010, Urine Protein 15 H, Urine Glucose [...] if patient does not already have an contestant coordinator would benefit from establishingcare with 1 # [...] Erickson MD Charges/Coding Visit Charges Inpatient E&M: 88872 Init Hosp L2 02/27/25 1501 Cosigner Signature (if applicable): CC: Dr. Marcelina Erickson MD; No Primary Care Physician~ Signed [facility]07-22-2025 Discharge summary Author Arik Boswell [facility] Note Date/Time February 28, 2025 8:19 am [facility] Medical Records Department [address] [place] [address] Emergency Department Summary 02/27/25 MR#: [id number] Acct: [id number] Name: UNA COSBY Rep #:[id number] : 1995 29 From: Arik Boswell MD [...] % (Auto) 59.1 Lymph % (Auto) 28.6 Saline % (Auto) 7.6 Eos % (Auto) 3.4 [...] concern for hyperkalemia. Hispotassium is only 5.3. WV interval is 156 ms. QRS duration 82 ms. QT aopswwfg273 ms. Arkport is normal.) Critical Care Time Critical Care Time: Yes Critical care time (excluding procedures): 30-74 minutes (31), Including time spent: (History, physical, documentation, interventional titration laboratory results, EKG and treatment for DKA.), Discussing w/Patient &/or Family/Electric Meter Installer, Discussing w/Consultants and Arranging Admission or Transfer [...] Primary [Primary Care Provider] - Print Language: Pakistani Disposition Disposition: Acute Care Hospital [facility] What to do if you have Problems For any increased pain, shortness of breath, bleeding, nausea or vomiting, chestpain, or any unexpected problems, contact your Primary Care Provider. Call [facility] ([phone]) or report to the closest Emergency Room. Call 911 if necessary. 02/28/25 0819 <Electronically signed by Arik Boswell MD> Cosigner Signature (if applicable): CC: No Primary Care Physician ~ Signed [facility] Work Phone: 1(870) 714-836306-30-2025 Discharge summary [facility] Medical Records Department [address] [place] [address] Discharge Summary 02/05/25 1642 MR#: [id number] Acct: [id number] Name: UNA COSBY Rep #:[id number] : 1995 29 From: Alo Lombardo PCP: [...] % (Auto) 55.6, Lymph % (Auto) 31.1, Saline % (Auto) 9.0, Eos % (Auto) 3.4, [...] Clarity Clear, Urine pH 6.0, Ur Specific Vallejo 1.010, Urine Protein 30 H, Urine Glucose [...] % (Auto) 52.3, Lymph % (Auto) 34.1, Saline % (Auto) 8.5, Eos % (Auto) 4.2, [...] Provider: Alo Zambrano Primary Care Provider: Care Physician,Cecy Primary Consulting Providers: Sarah Oh Discharge Orders/Prescriptions [...] Medical Advice Charges/Coding Visit Charges Inpatient E&M: 25445 Disch Hosp >30min 02/05/25 164 Cosigner Signature (if applicable): CC: Dr. Alo Zambrano MD; No Primary Care Physician~ Signed [facility]06-30-2025 [facility]06-30-2025 Hospital Discharge instructionsAdditional Instructions Date of Discharge: 02/05/25[facility] Work Phone: 1(941) 921-630406-30-2025 Progress note Author Alo Zambrano [facility] Note Date/Time February 05, 2025 7:49 am [facility] Medical Records Department [address] [place] [address] Progress Note - Hospitalist 02/05/25 0743 MR#: [id number] Acct: [id number] Name: UNA COSBY Rep #:[id number] : 1995 29 From: Alo Lombardo PCP: Care Physician,No Primary Status :ADM IN Location: ICU CVICU 2-1 Hospitalist Note 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 He said he has [...] Cosigner Signature (if applicable): CC: ~ Signed [facility] Work Phone: 1(155) 771-366806-30-2025 Discharge summary Author Lupeus Rivera [facility] Note Date/Time February 05, 2025 7:00 am [facility] Medical Records Department [address] [place] [address] Emergency Department Summary 02/05/25 MR#: [id number] Acct: [id number] Name: UNA COSBY Rep #:[id number] : 1995 29 From: Babita Rivera DO [...] % (Auto) 55.6 Lymph % (Auto) 31.1 Saline % (Auto) 9.0 Eos % (Auto) 3.4 [...] 30-74 minutes, Including time spent:,Discussing w/Patient &/or Family/Electric Meter Installer, Discussing w/Consultants, ArrangingAdmission or Transfer, Performing Direct [...] Primary [Primary Care Provider] - Print Language: Pakistani Disposition Disposition: Acute Care Hospital [facility] What to do if you have Problems For any increased pain, shortness of breath, bleeding, nausea or vomiting, chestpain, or any unexpected problems, contact your Primary Care Provider. Call [facility] ([phone]) or report to the closest Emergency Room. Call 911 if necessary. 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 He said he has [...] Cosigner Signature (if applicable): CC: ~ Signed [facility]06-30-2025 Discharge summary [facility] Medical Records Department [address] [place] [address] Emergency Department Summary 02/05/25 MR#: [id number] Acct: [id number] Name: UNA COSBY Rep #:[id number] : 1995 29 From: Babita Rivera DO PCP: Care Physician,No Primary Status :ADM IN Location: ICU CVICU 2-1 HPI History of Present Illness Chief [...] He denies fevers or chills or sweats. [facility] Medical History (Updated 02/05/25 @ 03:43 by [...] % (Auto) 55.6 Lymph % (Auto) 31.1 Saline % (Auto) 9.0 Eos % (Auto) 3.4 [...] 30-74 minutes, Including time spent:,Discussing w/Patient &/or Family/Electric Meter Installer, Discussing w/Consultants, ArrangingAdmission or Transfer, Performing Direct [...] Primary [Primary Care Provider] - Print Language: Pakistani Disposition Disposition: Acute Care Hospital [facility] What to do if you have Problems For any increased pain, shortness of breath, bleeding, nausea or vomiting, chestpain, or any unexpected problems, contact your Primary Care Provider. Call [facility] ([phone]) or report tothe closest Emergency Room. Call 911 if necessary. 02/05/25 0700 Cosigner Signature (if applicable): CC: No Primary Care Physician ~ Signed [facility]06-30-2025 History and physical note Author Sarah Oh [facility] Note Date/Time February 05, 2025 4:01 am [facility] Medical Records Department [address] [place] [address] H&P Exam - Hospitalist 02/05/25 0343 MR#: [id number] Acct: [id number] Name: UNA COSBY Rep #:[id number] : 1995 29 From: Sarah Oh MD [...] reported, Tobacco use who presents to the [facility] ED on 02/05/2025 with history [...] 1 and initiated on an insulin drip. [facility] Medical History Noncompliance with medication regimen Anxiety [...] % (Auto) 55.6, Lymph % (Auto) 31.1, Saline % (Auto) 9.0, Eos % (Auto) 3.4, [...] reported, Tobacco use who presents to the [facility] ED on 02/05/2025 with history [...] prophylaxis: Lovenox. Charges/Coding Visit Charges Inpatient E&M: 70011 Init Hosp L3 02/05/25 0401 <Electronically signed by Sarah Oh MD> Cosigner Signature (if applicable): CC: Dr. Sarah Oh MD; No Primary Care Physician~ Signed [facility] Work Phone: 1(430) 598-169506-30-2025 Evaluation note* Diagnosis Onset Date Resolution Status Admit Date DKA (diabetic ketoacidosis) acute February 05, 2025 3:44am Hyperglycemia acute February 05, 2025 3:44am Vomiting acute February 05 3:44am [facility] Work Phone: 1([phone]) 794-190906-30-2025 Evaluation note* Diagnosis Onset Date Resolution Status Admit Date DKA (diabetic ketoacidosis) resolved February 05, 2025 3:44am Hyperglycemia resolved February 05, 2025 3:44am Vomiting resolved February 05 3:44am Acute dehydration acute February 272024 2:52pm Diabetic ketoacidosis associated with type 1 diabetes mellitus acute February 27, 2025 2:52pm [facility] Work Phone: 1(452) 255-754706-30-2025 Evaluation note* Diagnosis Onset Date Resolution Status Admit Date DKA (diabetic ketoacidosis) resolved February 05, 2025 3:44am Hyperglycemia resolved February 05, 2025 3:44am Vomiting resolved February 05 3:44am Acute dehydration resolved February 272024 2:52pm Diabetic ketoacidosis associated with type 1 diabetes mellitus resolved February 27, 2025 2:52pm [facility] Work Phone: [phone]) 619-830206-30-2025 History and physical note [facility] Medical Records Department [address] [place] [address] H&P Exam - Hospitalist 02/05/25 0343 MR#: [id number] Acct: [id number] Name: UNA COSBY Rep #:[id number] : 1995 29 From: Sarah Oh MD [...] reported, Tobacco use who presents to the [facility] ED on 02/05/2025 with history [...] 1 and initiated on an insulin drip. [facility] Medical History Noncompliance with medication regimen Anxiety [...] % (Auto) 55.6, Lymph % (Auto) 31.1, Saline % (Auto) 9.0, Eos % (Auto) 3.4, [...] reported, Tobacco use who presents to the [facility] ED on 02/05/2025 with history [...] prophylaxis: Lovenox. Charges/Coding Visit Charges Inpatient E&M: 05840 Init Hosp L3 02/05/25 0401 Cosigner Signature (if applicable): CC: Dr. Sarah Oh MD; No Primary Care Physician~ Signed [facility]06-20-2025 Radiology Diagnostic study note [facility] Imaging Services [address] [place], [place] [address] Chest PA and Lateral MR#: [id number] Acct: [id number] Name: UNA COSBY Rep #: [id number] : 1995 M 29 From: Roberto Babin MD PCP: Care Physician,No Primary Status: REG ER Study:Chest PA and Lateral Date of Exam: 01/26/25 Exam# [id number] Ordering Dr: Beverly Wharton PROCEDURE: CHEST PA AND LATERAL 01/26/2025 REASON FOR EXAM: CHEST PAIN TECHNIQUE: CHEST PA AND LATERAL COMPARISON: Prior study dated October 19, 2024. FINDINGS: Hardware: EKG electrodes. Heart: Unremarkable Mediastinum: The mediastinal contour is unremarkable. Lungs: The lungs are clear. Bones: The bones are unremarkable. RAD/Chest PA and Lateral IMPRESSION: NO ACUTE FINDINGS. Reading Location: [place] [address] CC: ZAIN Baker; No Primary Care Physician ~ Commercial Account Officer: Signed [facility]05-08-2025 Discharge summary [facility] Medical Records Department [address] [place] [address] Emergency Department Summary 12/13/24 MR#: [id number] Acct: [id number] Name: UNA COSBY Rep #:[id number] : 1995 29 From: Juan Rivas MD [...] he cannot keep anything down all day. [facility] Medical History Learning difficulty due [...] % (Auto) 53.8 Lymph % (Auto) 33.9 Saline % (Auto) 8.1 Eos % (Auto) 3.3 [...] Clarity Clear Urine pH 7.0 Ur Specific Vallejo 1.005 Urine Protein 30 H Urine Glucose [...] (Auto) Neut % (Auto) Lymph % (Auto) Saline % (Auto) Eos % (Auto) Baso % (Auto) Absolute Neuts (auto) Absolute Lymphs (auto) Nucleated RBC % Sodium 136 Potassium 3.6 Chloride 103 Carbon Dioxide 24.0 Anion Gap 9 BUN 10 Creatinine 0.64 L Estim Creat Clear Calc 126.32 Est GFR (MDRD) Non-Af 133 BUN/Creatinine Ratio 16.2 Glucose 275 H Calcium 7.8 b-Hydroxybutyric mmol/L Urine Color Urine Clarity Urine pH Ur Specific Vallejo Urine Protein Urine Glucose (UA) Urine Ketones [...] (Auto) Neut % (Auto) Lymph % (Auto) Saline % (Auto) Eos % (Auto) Baso % (Auto) Absolute Neuts (auto) Absolute Lymphs (auto) Nucleated RBC % Sodium Potassium Chloride Carbon Dioxide Anion Gap BUN Creatinine Estim Creat Clear Calc Est GFR (MDRD) Non-Af BUN/Creatinine Ratio Glucose Calcium b-Hydroxybutyric mmol/L Urine Color Urine Clarity Urine pH Ur Specific Valle[place] Urine Protein Urine Glucose (UA) Urine Ketones [...] 1-2 Days if not improving Print Language: Pakistani Disposition Disposition: Home, Self Care What to do if you have Problems For any increased pain, shortness of breath, bleeding, nausea or vomiting, chestpain, or any unexpected problems, contact your Primary Care Provider. Call [facility] ([phone]) or report tothe closest Emergency Room. Call 911 if necessary. 12/14/24 0213 Cosigner Signature (if applicable): CC: No Primary Care Physician ~ Signed [facility]05-07-2025 Discharge summary Author Juan Rivas [facility] Note Date/Time December 14, 2024 2:13am [facility] Medical Records Department [address] [place] [address] Emergency Department Summary 12/13/24 MR#: [id number] Acct: [id number] Name: UNA COSBY Rep #:[id number] : 1995 29 From: Juan Rivas MD [...] he cannot keep anything down all day. [facility] Medical History Learning difficulty due [...] RDW Std Deviation 38.6 RDW Coeff of Aelc 15.2 H Plt Count 449 MPV 10.5 Immature Gran % (Auto) 0.300 Neut % (Auto) 53.8 Lymph % (Auto) 33.9 Saline % (Auto) 8.1 Eos % (Auto) 3.3 [...] Clarity Clear Urine pH 7.0 Ur Specific Vallejo 1.005 Urine Protein 30 H Urine Glucose [...] (Auto) Neut % (Auto) Lymph % (Auto) Saline % (Auto) Eos % (Auto) Baso % (Auto) Absolute Neuts (auto) Absolute Lymphs (auto) Nucleated RBC % Sodium 136 Potassium 3.6 Chloride 103 Carbon Dioxide 24.0 Anion Gap 9 BUN 10 Creatinine 0.64 L Estim Creat Clear Calc 126.32 Est GFR (MDRD) Non-Af 133 BUN/Creatinine Ratio 16.2 Glucose 275 H Calcium 7.8 b-Hydroxybutyric mmol/L Urine Color Urine Clarity Urine pH Ur Specific Valle[place] Urine Protein Urine Glucose (UA) Urine Ketones [...] (Auto) Neut % (Auto) Lymph % (Auto) Saline % (Auto) Eos % (Auto) Baso % (Auto) Absolute Neuts (auto) Absolute Lymphs (auto) Nucleated RBC % Sodium Potassium Chloride Carbon Dioxide Anion Gap BUN Creatinine Estim Creat Clear Calc Est GFR (MDRD) Non-Af BUN/Creatinine Ratio Glucose Calcium b-Hydroxybutyric mmol/L Urine Color Urine Clarity Urine pH Ur Specific Valle[place] Urine Protein Urine Glucose (UA) Urine Ketones [...] 1-2 Days if not improving Print Language: Pakistani Disposition Disposition: Home, Self Care What to do if you have Problems For any increased pain, shortness of breath, bleeding, nausea or vomiting, chestpain, or any unexpected problems, contact your Primary Care Provider. Call [facility] ([phone]) or report to the closest Emergency Room. Call 911 if necessary. 12/14/24212 <Electronically signed by Juan Rivas MD> Cosigner Signature (if applicable): CC: No Primary Care Physician ~ Signed [facility] Work Phone: 1(144) 849-792603-13-2025 Discharge summary [facility] Medical Records Department [address] [place] [address] Emergency Department Summary 10/19/24 MR#: [id number] Acct: [id number] Name: UNA COSBY Rep #:[id number] : 1995 29 From: Keisha Maldonado PCP: [...] complaints or concerns reported at this time. [facility] Medical History Learning difficulty due [...] % (Auto) 63.5 Lymph % (Auto) 27.7 Saline % (Auto) 6.2 Eos % (Auto) 1.5 [...] Clarity Clear Urine pH 6.0 Ur Specific Vallejo 1.010 Urine Protein 100 H Urine Glucose [...] No evidence of acute disease. 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 Call [facility] ([phone]) or report tothe closest Emergency Room. Call 911 if necessary. 10/19/24 0516 Cosigner Signature (if applicable): CC: No Primary Care Physician ~ Signed [facility]03-13-2025 Radiology Diagnostic study note [facility] Imaging Services [address] [place], [place] [address] Chest PA and Lateral MR#: [id number] Acct: [id number] Name: UNA COSBY Rep #: [id number] : 1995 M 29 From: Damian Massey MD PCP: Dr. Deangelo Noel MD Status: WV E ER Study:Chest PA and Lateral Date of Exam: 10/19/24 Exam# [id number] Ordering Dr: Danielle Handy DO PROCEDURE: CHEST PA AND LATERAL REASON FOR EXAM: CHEST PAIN TECHNIQUE: PA and lateral views of the chest. COMPARISON: 02/15/2023 FINDINGS: The lungs are clear. The cardiac and mediastinal contours are within limits. The visualized osseousstructures appear within limits. RAD/Chest PA and Lateral IMPRESSION: No evidence of acute disease. Reading Location: [id number] CC: Dr. Keisha Handy DO; Dr. Deangelo Noel MD ~ Commercial Account Officer: Signed [facility]05-28-[address] Zarate [facility] January 04, 2023 12:28am Note Date/Time January 03, 2023 11:04 pm [facility] Medical Records Department [address] [place] [address] Emergency Department Summary 01/03/23 MR#: [id number] Acct: [id number] Name: UNA COSBY Rep #:[id number] : 1995 27 From: Darren Maldonado PCP: [...] 45.8 L Lymph % (Auto) 42.3 H Saline % (Auto) 7.8 Eos % (Auto) 3.2 [...] asinus tachycardia with a rate of 117. WV interval, QRS interval, and QTc intervals were all normal. [place] was normal. There are no acute ST [...] your Primary Care Provider. Call [facility] ([phone]) or report to the closest Emergency Room. Call 911 if necessary. 01/04/23 0028 <Electronically signed by Darren Zarate DO> Cosigner Signature (if applicable): CC: Dr. Deangelo Noel MD ~ Signed [facility] Work Phone: 1(414) 754-180604-27-[address] Calvillo [facility] December 03, 2022 11:22pm Note Date/Time December 03, 2022 9:2 1pm [facility] Medical Records Department [address] [place] [address] Emergency Department Summary 12/03/22 MR#: [id number] Acct: [id number] Name: UNA COSBY Rep #:[id number] : 1995 27 From: Edgar Calvillo DO [...] Denies drug use. No history of DVT/PE. [facility] Medical History Anxiety Depression H/O fracture of [...] % (Auto) 62.3 Lymph % (Auto) 26.9 Saline % (Auto) 8.0 Eos % (Auto) 2.0 [...] your Primary Care Provider. Call [facility] ([phone]) or report to the closest Emergency Room. Call 911 if necessary. 12/03/222321 <Electronically signed by Edgar Calvillo DO> Cosigner Signature (if applicable): CC: Dr. Deangelo Noel MD ~ Signed [facility] Work Phone: [phone]) [phone] Miscellaneous Notes* Telephone Encounter - Laurent Sutherland [...] the pt is a pt at the [facility] -letter must be within the last 4 years -letter must be signed and dated by doctor or staff member There is no PCP listed under the pt but has been seen by Dr. Nole's in the past. Please call pt with any information. documented in [facility] encounterC[facility]02[facility]14-2023 Miscellaneous Notes* Telephone Encounter - Rajwinder [...] medicine. Phillip Howe APRN.CNP documented in this encounterC[facility]01-16-2023 Miscellaneous Notes* Telephone Encounter - Phillip [...] advise. Rajwinder Rosales LPN documented in this encounterC[facility]12-01-2022 Miscellaneous Notes* Telephone Encounter - Parvin Hannah Ma - 07/09/2022 2:05 PM EST PA received from pharmacy but when accessing it through covermeds state PA not needed. Did verifywith pharmacy medication goes through with no issue an is covered. Parvin Hannah Ma documented in this encounterC[facility]11-29-2022 History of Present illness Narrative* Phillip Howe APRN.ANNA - 07/07/2022 2:00 PM EST Patient came to appointment today. He was [facility] the [facility] 1 [facility]2 hours ago with complaints of chest pain, shortness of breath and lungs filling up with fluids. Had been out of his insulin for a few days. He was triaged by a provider in [facility] and sent to the ER. I [...] meals. Give along with SSI coverage Insulin Cheswick, Disposable, (BD ULTRAFINE III MINI PEN) 31 gauge x 3/16 100 Each 11 Sig: as directed for insulin injections 3 times a day Insulin Syringe-Needle U-100 (BD INSULIN SYRINGE ULTRAFINE) 0.3 mL 31 gauge x 5/16 100 Each 11 Sig: Use 4 times daily and prn Phillip Howe APRN.CNP documented in this encounterC[facility]11-29-2022 History of Present illness Narrative* Isaiah Caldera APRN.CNP - 07/07/2022 12:09 PM EST Patient tri[facility]. States has not taken insulin for few days/out of medicine. Reportslungs are filling up with fluid and reports constant chest pain. I will refer to ER. Mildly ill appearing but no distress. documented in this encounterC[facility]11-04-2022 Miscellaneous Notes* Telephone Encounter - Meri [...] planned Deangelo Noel MD documented in this encounterC[facility]11-01-2022 Miscellaneous Notes* Telephone Encounter - Deangelo [...] 4:34PM. Marcy Ponce Lpn documented in this encounterC[facility]11-01-2022 Miscellaneous Notes* Telephone Encounter - Phillip Howe APRN.CNP - 06/09/2022 10:53 AM EDT The following approved medication requests have been transmitted electronically. Requested Prescriptions Pending Prescriptions Disp Refills Insulin Cheswick, Disposable, (BD ULTRAFINE III MINI PEN) 31 [...] meals. Give along with SSI coverage Insulin Cheswick, Disposable, (BD ULTRAFINE III MINI PEN) 31 [...] advise. Sindy Brar Pss documented in this encounterC[facility]10-30-2022 Miscellaneous Notes* Telephone Encounter - Radha Hameed APRN.CNP - 06/07/2022 11:09 AM EDT Medications reordered today, needs appointment for further refills. Radha Hameed APRN.CNP documented in this encounterCleveland [facility]07-27-2022 History of Present illness Narrative* Rajwinder Rosales LPN - 03/04/2022 9:29 AM EDT TRANSITION CARE MANAGEMENT (TCM) INITIAL CONTACT [employer] Evaluator Outreach Provider Action/FYI: Unable to reach Pt. mailbox is not set up and and other number not working. Called [facility]2 Initial contact with patient post discharge, spoke to . Patient identified by name and . TRANSITION CARE MANAGEMENT INITIAL OUTREACH DOCUMENTATION: No flowsheet data found. SUMMARY: -Pt discharged from [facility] on 03/03/22. -Admitted for: High blood [...] records from recent hospitalization: documented in this encounterCleveland [facility]04-12-2022 History of Present illness Narrative* Sabrina [...] Care Gap or Scheduling/Wellness visits Payer: Payor: [place] MEDICAID / Plan: [employer] MEDICAID / Product Type: Medicaid / Care [...] field. Phillip Howe APRN.CNP documented in this encounterC[facility]11-29-2021 Miscellaneous Notes* Telephone Encounter - Phillip [...] 07/01. Patricia Ordoñez LPN documented in this encounterCleveland [facility]10-21-2010 History of Past illness Narrative* Problem Noted Date Resolved Date Diabetes mellitus type 1 with ketoacidosis 05/2905/29/2010 documented as of this encounter (statuses as of 11/18/2021) [facility] History of Past illness Narrative* Problem Noted Date Resolved Date Diabetes mellitus type 1 with ketoacidosis 05/2905/29/2010 documented as of this encounter (statuses as of 12/09/2021) [facility] of Past illness Narrative* Problem Noted Date Resolved Date Diabetes mellitus type 1 with ketoacidosis 05/2905/29/2010 documented as of this encounter (statuses as of 04/06/2022) [facility] of Past illness Narrative* Problem Noted Date Resolved Date Diabetes mellitus type 1 with ketoacidosis 05/2905/29/2010 documented as of this encounter (statuses as of 06/07/2022) [facility] of Past illness Narrative* Problem Noted Date Resolved Date Diabetes mellitus type 1 with ketoacidosis 05/2905/29/2010 documented as of this encounter (statuses as of 06/09/2022) [facility] History of Past illness Narrative* Problem Noted Date Resolved Date Diabetes mellitus type 1 with ketoacidosis 05/2905/29/2010 documented as of this encounter (statuses as of 06/09/2022) [facility]10-21-2010 History of Past illness Narrative* Problem Noted Date Resolved Date Diabetes mellitus type 1 with ketoacidosis 05/2905/29/2010 documented as of this encounter (statuses as of 06/12/2022) [address]21-2010 History of Past illness Narrative* Problem Noted Date Resolved Date Diabetes mellitus type 1 with ketoacidosis 05/2905/29/2010 documented as of this encounter (statuses as of 07/07/2022) [address]21-2010 History of Past illness Narrative* Problem Noted Date Resolved Date Diabetes mellitus type 1 with ketoacidosis 05/2905/29/2010 documented as of this encounter (statuses as of 07/07/2022) [facility]2010 History of Past illness Narrative* Problem Noted Date Resolved Date Diabetes mellitus type 1 with ketoacidosis 05/2905/29/2010 documented as of this encounter (statuses as of 07/09/2022) [facility]-2010 History of Past illness Narrative* Problem Noted Date Resolved Date Diabetes mellitus type 1 with ketoacidosis 05/2905/29/2010 documented as of this encounter (statuses as of 08/24/2022) [address]-2010 History of Past illness Narrative* Problem Noted Date Resolved Date Diabetes mellitus type 1 with ketoacidosis 05/2905/29/2010 documented as of this encounter (statuses as of 09/25/2022) [facility]2010 History of Past illness Narrative* Problem Noted Date Resolved Date Diabetes mellitus type 1 with ketoacidosis 05/2905/29/2010 documented as of this encounter (statuses as of 10/05/2022) [address]-2010 History of Past illness Narrative* Problem Noted Date Resolved Date Diabetes mellitus type 1 with ketoacidosis 05/2905/29/2010 documented as of this encounter (statuses as of 10/06/2022) [facility] Sandy Mcclain [facility] November 17, 2022 2:01am Note Date/Time November 17, 2022 1:1 8am [facility] Medical Records Department [address] [place] [address] Emergency Department Summary 11/17/22 MR#: [id number] Acct: [id number] Name: UNA COSBY Rep #:[id number] : 1995 27 From: Jimmie Palomino MD [...] Patient states he needs to see a client support professional. But he has not made any calls tosee them despite referrals. He states his phone only works on Wi-Fi. I have recommended he try to use a phone at work or borrow a friend's phone to make those calls as it is important that he gets in. Patient denies any travel surgery immobilization personal or family history of DVT or PE. [facility] Medical History Anxiety Depression H/O fracture of [...] % (Auto) 49.8 Lymph % (Auto) 38.9 Saline % (Auto) 7.7 Eos % (Auto) 2.8 [...] cycle. No acute ST elevation or depression. WV interval, QRS duration and QTc are normal. [...] your Primary Care Provider. Call [facility] ([phone]) or report to the closest Emergency Room. [...] applicable): cc: Deangelo Noel MD ~* Signed [facility] Work Phone: Discharge summary [facility] Note Date/Time October 19, 2024 5:1 6am [facility] Medical Records Department [address] [place] [address] Emergency Department Summary 10/19/24 MR#: [id number] Acct: [id number] Name: UNA COSBY Rep #:[id number] : 1995 29 From: Keisha Maldonado PCP: [...] complaints or concerns reported at this time. [facility] Medical History Learning difficulty due [...] % (Auto) 63.5 Lymph % (Auto) 27.7 Saline % (Auto) 6.2 Eos % (Auto) 1.5 [...] Clarity Clear Urine pH 6.0 Ur Specific [place] 1.010 Urine Protein 100 H Urine Glucose [...] No evidence of acute disease. 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 Call [facility] ([phone]) or report to the closest Emergency Room. Call 911 if necessary. 10/19/24 0516 <Electronically signed by Keisha Handy DO> Cosigner Signature (if applicable): CC: No Primary Care Physician ~ Signed [facility] Work Phone: Discharge summary Author Alo Zambrano [facility] Note Date/Time February 05, 2025 4:45 pm [facility] Medical Records Department [address] [place] [address] Discharge Summary 02/05/25 1642 MR#: [id number] Acct: [id number] Name: UNA COSBY Rep #:[id number] : 1995 29 From: Alo Lombardo PCP: [...] % (Auto) 55.6, Lymph % (Auto) 31.1, Saline % (Auto) 9.0, Eos % (Auto) 3.4, [...] Clarity Clear, Urine pH 6.0, Ur Specific [place] 1.010, Urine Protein 30 H, Urine Glucose [...] % (Auto) 52.3, Lymph % (Auto) 34.1, Saline % (Auto) 8.5, Eos % (Auto) 4.2, [...] Medical Advice Charges/Coding Visit Charges Inpatient E&M: 32107 Disch Hosp >30min 02/05/25 1645 <Electronically signed by Alo Zambrano MD> Cosigner Signature (if applicable): CC: Dr. Alo Zambrano MD; No Primary Care Physician~ Signed [facility] Work Phone: Discharge summary Author Berny Nelson [facility] Note Date/Time February 28, 2025 8:56 am [facility] Medical Records Department [address] [place] [address] Instructions for Home/Discharge Instructions 02/28/25 0853 MR#: [id number] Acct: [id number] Name: UNA COSBY Rep #:[id number] : 1995 29 From: Berny yeager MD [...] MD; No Primary Care Physician ~ Signed [facility] Work Phone: Discharge summary Author Trent Vega [facility] Note Date/Time May 26, 2025 3 :35am [facility] Medical Records Department [address] [place] [address] Emergency Department Summary 05/26/25 MR#: [id number] Acct: [id number] Name: UNA COSBY Rep #:[id number] : 1995 30 From: Trent Vega DO PCP: Care Physician,No Primary Status :REG ER Location: ED HPI History of Present Illness Chief Complaint: Palpitations Informant: patient Narrative Narrative: Patient is a 30-year-old male with past medical history of type 1 diabetes as well as anxiety and depression. He states he was at work this evening when he began to feel like his heart was racing and skipping beats. He states he does not have a known history of cardiac arrhythmia but reports there is a family history of abnormal heart rhythm. Secondary to this he presents to the ER for evaluation. He does state that after arrival to the ER he is now experience bouts of nausea and vomiting. He reports has been no known sick contact. He denies any fevers or chills associated with this. He reports he has been takinghis insulin as he is directed. He also states there is no associated excessive stimulant use or illicit drug use as a cause for his palpitation. PFSH PFSH Medical History Marijuana smoker Anxiety Depression Smoker Asthma Hypertension Chronic anemia [...] PO BID #14 tabs 04/21 Unknown Rx ondansetron 4 mg disintegrating 4 mg PO TID PRN nausea and 05/26/25 Unknown Rx tablet vomiting #21 tabs Allergy/AdvReac Type Severity Reaction Status Date / Time No Known Allergies Allergy Verified 05/25/25 22:37 Family History Father Diabetes Mother , Age [...] Reports palpitations and racing heartbeat; Denies chest pain Respiratory/Chest Respiratory/Chest: Denies cough or dyspnea Gastrointestinal Gastrointestinal: Reports nausea and vomiting; Denies abdominal pain or diarrhea Genitourinary Genitourinary ED: Denies dysuria Musculoskeletal Musculoskeletal: Denies myalgias Integumentary Denies rash Neurologic Neurologic: Denies headache(s), paresthesias or weakness Psychiatric Psychiatric: Reports anxiety Hematologic/Lymphatic Hematologic/Lymphatic: Denies easy bleeding or easy bruising EXAM Physical Exam Const Vital Signs: 05/25/25 22:37 05/25/25 23:09 05/26/25 00:35 Temperature 97.8 F Temperature Source Temporal Pulse Rate 102 H 99 Respiratory Rate 16 16 Respiratory Effort Normal Non-Labored Respiratory Pattern Normal Blood Pressure 128/90 H 123/88 H Blood Pressure Mean 102 99 Pulse Ox 99 98 Oxygen Delivery Method Room Air Room Air 05/26/25 01:00 Temperature Temperature Source Pulse Rate 97 Respiratory Rate 18 Respiratory Effort Respiratory Pattern Blood Pressure 118/89 H Blood Pressure Mean 98 Pulse Ox 99 Oxygen Delivery Method Room Air Positive well nourished and well developed General Appearance ED: well developed; Negative for pallor HEENT Reports dry mucous membranes HEENT Narrative: Normocephalic atraumatic No tongue or lip swelling no oral lesions no airway edema or compromise; no secondary findings in the posterior pharynx to suggest infection Mucous membranes are dry and tacky Mouth ED: Yes dry mucous membranes Mouth: dry mucous membranes Eyes PERRL and EOMs intact bilaterally General Eye ED: Negative for scleral icterus Neck supple Neck Narrative: No nuchal rigidity or meningeal signs Chest Wall palpation of chest normal Resp normal respiratory effort and clear to auscultation bilaterally Cardio regular rhythm Rate: tachycardic and other Other Details: Tachycardic rate with regular rhythm Radial and carotid pulses are equal and symmetric No carotid bruit noted GI non-tender, non-distended and no masses GI Narrative: Abdomen is soft nontender nondistended with hyperactive bowel sounds. No voluntary guarding or rigidity or pulsatile mass. Auscultation: hyperactive bowel sounds Palpation: soft Extremity normal to inspection Extremity Narrative: No asymmetric edema no pitting edema negative Homans' sign bilaterally Neuro oriented x3, CN's II-XII intact bilaterally and no sensory deficits noted Sensorium / Orientation: alert Motor Exam: strength 5/5 throughout Psych Mood & Affect: anxious Skin no rashes or lesions noted and No skin turgor normal Skin Narrative: Skin turgor is increased General Skin Exam: Negative for jaundice or pallor MDM MDM MDM Narrative Medical decision making narrative: Patient arrived to the ER tachycardic but otherwise with stable vitals. With his report of palpitations there is concern for cardiac dysrhythmia such as atrial fibrillation atrial flutter or SVT. 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 EKG displayed sinus tachycardia without ischemic finding. He was kept on the irrigation system installer and there was no dysrhythmia noted. In order to ensure that his palpitations were not secondary to acute blood loss anemia acute kidney injury or clinically significant electrolyte abnormality basic blood work was obtained. As he is a type I diabetic there was also blood work to check for DKA or HHS. Patient's labs showed an elevated blood sugar of 653. However he does not have elevation to his anion gap his bicarbonate value was not low his serum beta hydroxybutyrate is normal and his pH on his VBG is 7.46. This indicates that he is not in DKA. His serum osmolality value was normal at 294 going against HHS. After receiving2 L of IV fluid he had resolution of his tachycardia his blood pressure remainedstable and his blood sugar improved as well. He was given an injection of subcutaneous insulin on a sliding scale secondary to the persistent hyperglycemia. However as he does not have a cardiac dysrhythmia nor is he in DKA or HHS there is no need for further intervention and he is otherwise safe for discharge History & Record Review Discussion w/independent historian: Patient Lab Data Attestation: I reviewed the patient's lab results. Labs: Laboratory Results - last 24 hr 05/25/25 05/26/25 23:43 00:55 WBC 12.0 H RBC 4.82 Hgb 12.3 L Hct 38.4 L MCV 79.7 L MCH 25.5 L MCHC 32.0 RDW Std Deviation 39.9 RDW Coeff of Alec 13.7 Plt Count 332 MPV 11.1 Immature Gran % (Auto) 1.300 H Neut % (Auto) 48.9 Lymph % (Auto) 35.1 Saline % (Auto) 10.3 H Eos % (Auto) 3.8 Baso % (Auto) 0.6 Absolute Neuts (auto) 5.9 Absolute Lymphs (auto) 4.20 Nucleated RBC % 0 Sodium 125 L Potassium 4.1 Chloride 89 L Carbon Dioxide 26.0 Anion Gap 11 BUN 19 Creatinine 0.67 L Estim Creat Clear Calc 153.65 Est GFR (MDRD) Non-Af 130 BUN/Creatinine Ratio 28.5 H Glucose 653 H* Serum Osmolality 294 Calcium 8.8 Magnesium 2.2 b-Hydroxybutyric mmol/L 0.1 TSH 2.600 ABG Data ABG results: ABG 05/26/25 00:57 Specimen Type JAIDEN Sample Site Not entered VBG pH 7.47 H VBG pO2 36 VBG HCO3 29 H VBG Total CO2 30 VBG O2 Sat (Calc) 72 H VBG Base Excess 5 H POC Mix VBG pCO2 Pt Tmp 39.9 L O2 Delivery Device Room Air Discharge Plan Triage Chief Complaint: Palpitations ED Provider: Trent Vega Dx/Rx/DC Orders Clinical Impression: Type 1 diabetes mellitus, Palpitations, Dehydration, Acute hyperglycemia Instructions: Diabetes: Caring for Your Body, ED Dehydration (Adult), ED Heart Palpitations Prescriptions: New ondansetron 4 mg tablet,disintegrating 4 mg PO TID PRN (Reason: nausea and vomiting) Qty: 21 0RF No Action insulin lispro 100 UNIT/ML [...] (Reason: nausea and vomiting) Qty: 12 0RF hydrocodone-acetaminophen 5-325 mg tablet 1 tab PO Q6H PRN PRN (Reason: Pain) 2 Days Qty: 6 0RF naproxen 500 mg tablet 500 mg PO BID Qty: 14 0RF Primary Care Provider: Care Physician,No Primary Referrals: Vick Hicks MD [Med Staff - Active Staff, Family Practice] Care Physician,No Primary [Primary Care Provider, Medical] Activity Restrictions/Additional Instructions: Please continue to take your insulin as directed to control your diabetes. Use the Zofran as prescribed to help with any further bouts of nausea or vomiting. Please keep yourself well-hydrated. Follow-up with Dr. Hicks or your family doctor for repeat evaluation. Discussed with them a Holter monitor to further assess for any type of abnormal cardiac rhythm. Return to the ER should you have any further concerns Print Language: Pakistani Disposition Disposition: Home, Self Care What to do if you have Problems For any increased pain, shortness of breath, bleeding, nausea or vomiting, chestpain, or any unexpected problems, contact your Primary Care Provider. Call [facility] ([phone]) or report to the closest Emergency Room. Call 911 if necessary. 05/26/25 1075 <Electronically signed by Trent Vega DO> Cosigner Signature (if applicable): CC: No Primary Care Physician ~ Signed [facility] Work Phone: Evaluation + Plan note No data available for this section [facility] Evaluation note* Diagnosis Uncontrolled type 1 diabetes mellitus with hypoglycemia without coma (HCC)- Primary [facility] [place] [facility]* Diagnosis Uncontrolled type 1 diabetes mellitus with hypoglycemia without coma (HCC) documented in this encounter [facility] noteNo assessment information availableWProMedica [facility] Work Phone: Evaluation note* Diagnosis Onset Date Resolution Status Acute dehydration acute Acute hyperkalemia acute FRANKLIN (acute kidney injury) ac vianca DKA, type 1 acute Hyperphosphatemia acute Noncompliance with medication regimen acute Pseudohyponatremia acute [facility] Work Phone: Evaluation note* Diagnosis Uncontrolled type 1 diabetes mellitus with hypoglycemia without coma (HCC) documented in this encounter [facility] note* Diagnosis Uncontrolled type 1 diabetes mellitus [...] spinal cord injury documented in this encounter [facility] note* Diagnosis Onset Date Resolution Status Noncompliance with medication regimen acute Acute dehydration resolved Acute hyperkalemia resolved FRANKLIN (acute kidney injury) re solved DKA, type 1 resolved Hyperphosphatemia resolved Pseudohyponatremia resolved [facility] Work Phone: Evaluation note* Diagnosis Chest pain, unspecified type- Primary High blood sugar Other abnormal glucose documented in this encounter [facility] note* Diagnosis APPOINTMENT CANCELLED- Primary Uncontrolled type 1 diabetes mellitus with hypoglycemia without coma (HCC) Type I (juvenile type) diabetes mellitus without mention of complication, not stated as uncontrolled (HCC) Type I (juvenile type) diabetes mellitus without mention of complication, not stated as uncontrolled documented [facility] this [facility] [place] [facility]* Diagnosis Onset Date Resolution Status FRANKLIN (acute kidney injury) ac vianca DKA (diabetic ketoacidoses) acute Hematemesis of unknown cause acute Lactic acidosis acute Noncompliance with medication regimen acute [facility] Work Phone: Evaluation note* Diagnosis Uncontrolled type 1 diabetes mellitus with hypoglycemia without coma (HCC) documented [facility] this [facility] [place] [facility]* Diagnosis Onset Date Resolution Status Noncompliance with medication regimen acute FRANKLIN (acute kidney injury) re solved DKA (diabetic ketoacidoses) resolved Hematemesis of unknown cause resolved Lactic acidosis resolved [facility] Work Phone: Evaluation note* Diagnosis Onset Date Resolution Status Admit Date DKA (diabetic ketoacidosis) acute February 05, 2025 3:44am Hyperglycemia acute February 05, 2025 3:44am Vomiting acute February 05 3:44am [facility] Work Phone: History and physical note Author Sarah Oh [facility] Note Date/Time February 05, 2025 4:01 am [facility] Medical Records Department [address] [place] [address] H&P Exam - Hospitalist 02/05/25 0343 MR#: [id number] Acct: [id number] Name: UNA COSBY Rep #:[id number] : 1995 29 From: Sarah Oh MD [...] reported, Tobacco use who presents to the [facility] ED on 02/05/2025 with history [...] 1 and initiated on an insulin drip. [facility] Medical History Noncompliance with medication regimen Anxiety [...] % (Auto) 55.6, Lymph % (Auto) 31.1, Saline % (Auto) 9.0, Eos % (Auto) 3.4, [...] reported, Tobacco use who presents to the [facility] ED on 02/05/2025 with history [...] prophylaxis: Lovenox. Charges/Coding Visit Charges Inpatient E&M: 40955 Init Hosp L3 02/05/25 0401 <Electronically signed by Sarah Oh MD> Cosigner Signature (if applicable): CC: Dr. Sarah Oh MD; No Primary Care Physician~ Signed [facility] Work Phone: History and physical note Author Marcelina Erickson [facility] Note Date/Time February 27, 2025 3:01 pm [facility] Medical Records Department [address] [place] [address] [place] [address] H&P Exam - Hospitalist 02/27/25 1455 MR#: [id number] Acct: [id number] Name: UNA COSBY Rep #:[id number] : 1995 29 From: Marcelina Erickson MD PCP: Care Physician,No Primary Status :ADM IN Location: ICU CVICU20 3-1 HPI - General General Date of Admission: 02/27/25 Date of Service: 02/27/25 Chief Complaint: Heart palpitations HPI Narrative UNA COSBY, is [id number] male history of type 1 diabetes and tobacco usepresented to [facility] ED 02/27/2025 with complaints of [...] at bedtime. Per patient he reports compliance [facility] Medical History Noncompliance with medication regimen Anxiety [...] Neut % (Auto) 59.1, Lymph % (Auto) 28.6,Saline % (Auto) 7.6, Eos % (Auto) 3.4, [...] Clarity Clear, Urine pH 6.0, Ur Specific [place] 1.010, Urine Protein 15 H, Urine Glucose [...] if patient does not already have an contestant coordinator would benefit from establishingcare with 1 # [...] Erickson MD Charges/Coding Visit Charges Inpatient E&M: 57925 Init Hosp L2 02/27/25 1501 <Electronically signed by Marcelina Erickson MD> Cosigner Signature (if applicable): CC: Dr. Marcelina Erickson MD; No Primary Care Physician~ Signed [facility] Work Phone: Hospital Discharge instructions [...] care physician for further outpatient evaluation and management.[facility] Work Phone: Hospital Discharge instructions [...] workup was largely normal with no findings assistant press operator with heart attack or other acute cardiac/heart processWooTriHealth [facility] Work Phone: Hospital Discharge instructions Additional Instructions Follow-up with your PCP and return for any worsening symptoms.[facility] Work Phone: Hospital Discharge instructions Additional Instructions I am not sure what the cause of your palpitations and is. Your screening labs look normal other than very high glucose over 480. It is important you take your insulin as scheduled and make good food choices for a diabetic diet. Follow-up your primary care doctor.[facility] Work Phone: Hospital Discharge instructionsAdditional Instructions 1. Recommend contacting your primary care provider. The name of your doctor should be on your insurance card issued to you by [employer]. 2. Avoid pulling anything towards you of any significant weight or limit overhead work.[facility] Work Phone: Hospital Discharge instructionsAdditional Instructions Please continue to take your insulin as directed to control your diabetes. Use the Zofran as prescribed to help with any further bouts of nausea or vomiting. Please keep yourself well-hydrated. Follow-up with Dr. Hicks or your family doctor for repeat evaluation. Discussed with them a Holter monitor to further assess for any type of abnormal cardiac rhythm. Return to the ER should you have any further concernsWProMedica [facility] Work Phone: Reason for referral (narrative)No reason for referral information availableWProMedica [facility] Hospital Work Phone: Summary Purpose Family History No Family History Records Found Relationship Condition Age at Onset Recorded Date/T bertin father Diabetes mellitus Unknown Relationship Condition Age at Onset Recorded Date/T bertin father Diabetes mellitus Unknown mother Cardiac disease Unknown Coronary artery disease Unknown Hypertension Unknown Heart failure Unknown Advance Directives No Advanced Directives Records FoundDocuments on File Type Date Recorded 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 Expl 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 Advance Directive(s) 03/23/2018 2:01 PM Advance Directive Response Recorded Date/ Time Advance Directives No October 08 6:31pm Living Will No January 31, 2022 10:37am Power of Wrecking Crane Engine Operator No January 31 10:37am Advance Directive Response Recorded Date/ Time Advance Directives No October 08 6:31pm Living Will No 2022 10:52am Power of Wrecking Crane Engine Operator No March 02 2 10:52am Advance Directive Response Recorded Date/ Time Advance Directives No October 08 6:31pm Living Will No 2022 12:30pm Power of Wrecking Crane Engine Operator No March 02 12:30pm Advance Directive Response Recorded Date/ Time Advance Directives No October 08 5:31pm Living Will No June 30 10:32pm Power of Wrecking Crane Engine Operator No June 30, 2022 10:32pm Advance Directive Response Recorded Date/ Time Advance Directives No October 08 5:31pm Living Will No August 18 11:46am Power of Wrecking Crane Engine Operator No August 18, 2022 11:46am Advance Directive Response Recorded Date/ Time Advance Directives No October 08 5:31pm Living Will No August 24 9:15pm Power of Wrecking Crane Engine Operator No August 24, 2022 9:15pm Advance Directive Response Recorded Date/ Time Advance Directives No October 08 5:31pm Living Will No October 13, 2022 3:59am Power of Wrecking Crane Engine Operator No October 13 3:59am Advance Directive Response Recorded Date/ Time Advance Directives No October 08 6:31pm Living Will No October 13, 2022 4:59am Power of Wrecking Crane Engine Operator No October 13 4:59am Advance Directive Response Recorded Date/ Time Advance Directives No October 08 6:31pm Living Will No November 17, 2022 2:01am Power of Wrecking Crane Engine Operator No November 17 2:01am Advance Directive Response Recorded Date/ Time Advance Directives No October 08 6:31pm Living Will No December 03, 2022 8:34pm Power of Wrecking Crane Engine Operator No December 03 8:34pm Advance Directive Response Recorded Date/ Time Advance Directives No October 08 6:31pm Living Will No December 09, 2022 6: 27pm Power of Wrecking Crane Engine Operator No December 09, 2022 6:27pm Advance Directive Response Recorded Date/ Time Advance Directives No October 08 6:31pm Living Will No January 03, 2023 1 0:21pm Power of Wrecking Crane Engine Operator No January 03, 2023 10:21pm Advance Directive Response Recorded Date/ Time Living Will No October 19, 2024 12:14am Power of Wrecking Crane Engine Operator No October 19 12:14am Advance Directives No October 08 6:31pm Advance Directive Response Recorded Date/ Time Living Will No November 11, 2024 5:45pm Do you have a Healthcare Power of Wrecking Crane Engine Operator? No November 11, 2024 5:45pm Living Will No October 19, 2024 12:14am Do you have a Healthcare Power of Wrecking Crane Engine Operator? No October 19, 2024 12:14am Advance Directives No October 08 6:31pm Advance Directive Response Recorded Date/ Time Living Will No November 11, 2024 5:45pm Do you have a Healthcare Power of Wrecking Crane Engine Operator? No November 11, 2024 5:45pm Do you have a Healthcare Power of Wrecking Crane Engine Operator? No December 12, 2024 1:02pm Living Will No October 19, 2024 12:14am Do you have a Healthcare Power of Wrecking Crane Engine Operator? No October 19, 2024 12:14am Do you have a Healthcare Power of Wrecking Crane Engine Operator? No December 13, 2024 9:49pm Advance Directives No October 08 6:31pm Advance Directive Response Recorded Date/ Time Living Will No November 11, 2024 5:45pm Do you have a Healthcare Power of Wrecking Crane Engine Operator? No November 11, 2024 5:45pm Do you have a Healthcare Power of Wrecking Crane Engine Operator? No December 12, 2024 1:02pm Do you have a Healthcare Power of Wrecking Crane Engine Operator? No January 26, 2025 12:12pm Living Will No October 19, 2024 12:14am Do you have a Healthcare Power of Wrecking Crane Engine Operator? No October 19, 2024 12:14am Do you have a Healthcare Power of Wrecking Crane Engine Operator? No December 13, 2024 9:49pm Advance Directives No October 08 6:31pm Advance Directive Response Recorded Date/ Time Living Will No November 11, 2024 5:45pm Do you have a Healthcare Power of Wrecking Crane Engine Operator? No November 11, 2024 5:45pm Do you have a Healthcare Power of Wrecking Crane Engine Operator? No December 12, 2024 1:02pm Do you have a Healthcare Power of Wrecking Crane Engine Operator? No January 26, 2025 12:12pm Living Will No October 19, 2024 12:14am Do you have a Healthcare Power of Wrecking Crane Engine Operator? No October 19, 2024 12:14am Do you have a Healthcare Power of Wrecking Crane Engine Operator? No December 13, 2024 9:49pm Do you have a Healthcare Power of Wrecking Crane Engine Operator? No February 05, 2025 2:23am Advance Directives No October 08 6:31pm Advance Directive Response Recorded Date/ Time Living Will No November 11, 2024 5:45pm Do you have a Healthcare Power of Wrecking Crane Engine Operator? No November 11, 2024 5:45pm Do you have a Healthcare Power of Wrecking Crane Engine Operator? No December 12, 2024 1:02pm Do you have a Healthcare Power of Wrecking Crane Engine Operator? No January 26, 2025 12:12pm Living Will No October 19, 2024 12:14am Do you have a Healthcare Power of Wrecking Crane Engine Operator? No October 19, 2024 12:14am Do you have a Healthcare Power of Wrecking Crane Engine Operator? No December 13, 2024 9:49pm Do you have a Healthcare Power of Wrecking Crane Engine Operator? No February 05, 2025 4:26am Advance Directives No October 08 6:31pm Advance Directive Response Recorded Date/ Time Living Will No November 11, 2024 5:45pm Do you have a Healthcare Power of Wrecking Crane Engine Operator? No November 11, 2024 5:45pm Do you have a Healthcare Power of Wrecking Crane Engine Operator? No December 12, 2024 1:02pm Do you have a Healthcare Power of Wrecking Crane Engine Operator? No January 26, 2025 12:12pm Do you have a Healthcare Power of Wrecking Crane Engine Operator? No December 13, 2024 9:49pm Do you have a Healthcare Power of Wrecking Crane Engine Operator? No February 05, 2025 4:26am Do you have a Healthcare Power of Wrecking Crane Engine Operator? No February 27, 2025 12:52pm Advance Directives No October 08 6:31pm Advance Directive Response Recorded Date/ Time Living Will No November 11, 2024 5:45pm Do you have a Healthcare Power of Wrecking Crane Engine Operator? No November 11, 2024 5:45pm Do you have a Healthcare Power of Wrecking Crane Engine Operator? No December 12, 2024 1:02pm Do you have a Healthcare Power of Wrecking Crane Engine Operator? No January 26, 2025 12:12pm Do you have a Healthcare Power of Wrecking Crane Engine Operator? No December 13, 2024 9:49pm Do you have a Healthcare Power of Wrecking Crane Engine Operator? No February 05, 2025 4:26am Do you have a Healthcare Power of Wrecking Crane Engine Operator? No February 27, 2025 3:02pm Advance Directives No October 08 6:31pm Advance Directive Response Recorded Date/ Time Do you have a Healthcare Power of Wrecking Crane Engine Operator? No January 26, 2025 12:12pm Do you have a Healthcare Power of Wrecking Crane Engine Operator? No February 05, 2025 4:26am Do you have a Healthcare Power of Wrecking Crane Engine Operator? No February 27, 2025 3:02pm Do you have a Healthcare Power of Wrecking Crane Engine Operator? No April 21, 2025 2:01pm Advance Directives No October 08 6:31pm Advance Directive Response Recorded Date/ Time Do you have a Healthcare Power of Wrecking Crane Engine Operator? No February 27, 2025 2:02pm Do you have a Healthcare Power of Wrecking Crane Engine Operator? No April 21, 2025 1:01pm Do you have a Healthcare Power of Wrecking Crane Engine Operator? No May 25, 2025 10:09pm Do you have a Healthcare Power of Wrecking Crane Engine Operator? No June 09, 2025 9:37pm Advance Directives No October 08 5:31pm Chief Complaint and Reason for Visit Chief [...] Admit Date DKA (diabetic ketoacidosis) February 05, 025 3:44am Hyperglycemia February 05, 2025 3:44 [...] 1am UPPER EXTRMITY April 21, 2025 1:28pm Chief Complaint Admit Date DKA February 27, 2025 2:52 pm DKA February 28, 2025 10:5 1am UPPER EXTRMITY April 21, 2025 1:28pm PALPITATIONS May 25, 2025 1 0:37pm DKA June 09, 2025 7 :42pm DKA June 10, 2025 4 :28pm Reason for Visit Admit Date Acute dehydration February 27, 2025 2:52 pm Diabetic ketoacidosis associ ated with type 1 diabetes mellitus February 27, 2025 2:52pm DKA (diabetic ketoacidosis) June 7:42pm DM type 1 (diabetes mellitus, type 1) No vember 2024 7:42pm Reason for Referral Specialty Diagnoses / Procedures Referred By Yee t Referred To Contact Diagnoses Uncontrolled type 1 diabetes mellitus with hypoglycemia without coma (HCC) Radha Hameed, SERVICES ADVISOR.CLAY ARTIST [address] [place] [address] Referral ID Status Reason Start Date Expiration Date Visits Re quested Visits Authorized [id number] Closed 1 1 Additional Source Comments (unrecognized sect ion and content) No Status Records FoundNo Status Records FoundNo Status Records FoundNo Status Records FoundNo Status Records FoundNo Status Records Found INFORMATION SOURCE (unrecogn ized section and content) DATE CREATED AUTHOR 01/25/2018 [facility] DATE CREATED AUTHOR AUTHOR'S ORGANIZ ATION 05/20/2018 [facility] [place] DATE CREATED AUTHOR AUTHOR'S ORGANIZ ATION 05/27/2018 [facility] DATE CREATED AUTHOR AUTHOR'S ORGANIZ ATION 03/28/2025 [facility] DATE CREATED AUTHOR AUTHOR'S ORGANIZ ATION 04/13/2025 [facility] DATE CREATED AUTHOR AUTHOR'S ORGANIZ ATION 06/21/2025 [facility] Source Comments (unrecognize d section and content) In the event this informatio n is protected by the Federal Confidentiality of Alcohol and Drug Abuse Patient Records regulations: The Federal rules restrict any use of the information to criminally investigate or prosecute any alcohol or drug abuse patient.[facility] the event this information is protected by the Federal Confidentiality of Alcohol and Drug Abuse Patient Records regulations: The Federal rules restrict any use of the information to criminally investigate or prosecute any alcohol or drug abuse patient.[facility] the event this information is protected by the Federal Confidentiality of Alcohol and Drug Abuse Patient Records regulations: The Federal rules restrict any use of the information to criminally investigate or prosecute any alcohol or drug abuse patient.[facility] the event this information is protected by the Federal Confidentiality of Alcohol and Drug Abuse Patient Records regulations: The Federal rules restrict any use of the information to criminally investigate or prosecute any alcohol or drug abuse patient.[facility] the event this information is protected by the Federal Confidentiality of Alcohol and Drug Abuse Patient Records regulations: The Federal rules restrict any use of the information to criminally investigate or prosecute any alcohol or drug abuse patient.[facility] the event this information is protected by the Federal Confidentiality of Alcohol and Drug Abuse Patient Records regulations: The Federal rules restrict any use of the information to criminally investigate or prosecute any alcohol or drug abuse patient.[facility] the event this information is protected by the Federal Confidentiality of Alcohol and Drug Abuse Patient Records regulations: The Federal rules restrict any use of the information to criminally investigate or prosecute any alcohol or drug abuse patient.[facility] the event this information is protected by the Federal Confidentiality of Alcohol and Drug Abuse Patient Records regulations: The Federal rules restrict any use of the information to criminally investigate or prosecute any alcohol or drug abuse patient.[facility] the event this information is protected by the Federal Confidentiality of Alcohol and Drug Abuse Patient Records regulations: The Federal rules restrict any use of the information to criminally investigate or prosecute any alcohol or drug abuse patient.[facility] the event this information is protected by the Federal Confidentiality of Alcohol and Drug Abuse Patient Records regulations: The Federal rules restrict any use of the information to criminally investigate or prosecute any alcohol or drug abuse patient.[facility] the event this information is protected by the Federal Confidentiality of Alcohol and Drug Abuse Patient Records regulations: The Federal rules restrict any use of the information to criminally investigate or prosecute any alcohol or drug abuse patient.[facility] the event this information is protected by the Federal Confidentiality of Alcohol and Drug Abuse Patient Records regulations: The Federal rules restrict any use of the information to criminally investigate or prosecute any alcohol or drug abuse patient.[facility] the event this information is protected by the Federal Confidentiality of Alcohol and Drug Abuse Patient Records regulations: The Federal rules restrict any use of the information to criminally investigate or prosecute any alcohol or drug abuse patient.[facility] the event this information is protected by the Federal Confidentiality of Alcohol and Drug Abuse Patient Records regulations: The Federal rules restrict any use of the information to criminally investigate or prosecute any alcohol or drug abuse patient.[facility] Reason for Visit (unrecogniz ed section [...] Care Teams (unrecognized sec tion and content) Food Service Steward Relationship Specialty Start Date End Date Deangelo Noel MD [address] [facility] [place] [address] PCP - General Family Practice 09/30/18 [facility] [address] [place] [address] Pharmacist Pharmacy 07/14/18 Darren Zarate DO [address] [place] [address] Meter/Relay Technician Emergency Medicine 06/04/20 Food Service Steward Relationship Specialty Start Date End Date Deangelo Noel MD [address] [facility] [place] [address] PCP - General Family Practice 09/30/18 [facility] [address] [facility] [place] [address] Pharmacist Pharmacy 07/14/18 Darren Zarate DO [address] [place] [address] Meter/Relay Technician Emergency Medicine 06/04/20 Food Service Steward Relationship Specialty Start Date End Date Deangelo Noel MD [address] [facility] [place] [address] PCP - General Family Practice 09/30/18 [facility] [address] [place] [address] Pharmacist Pharmacy 07/14/18 Darren Zarate DO [address] [place] [address] Meter/Relay Technician Emergency Medicine 06/04/20 Food Service Steward Relationship Specialty Start Date End Date Deangelo Noel MD [address] [place] [address] PCP - General Family Medicine 09/30/18 [facility] [address] [place] [address] Pharmacist Pharmacy 07/14/18 Darren Zarate, DO [address] [place] [address] Meter/Relay Technician Emergency Medicine 06/04/20 Food Service Steward Relationship Specialty Start Date End Date Deangelo Noel MD [address] [place] [address] PCP - General Family Medicine 09/30/18 [facility] [address] [place] [address] Pharmacist Pharmacy 07/14/18 Darren Zarate DO [address] [place] [id number] Meter/Relay Technician Emergency Medicine 06/04/20 Food Service Steward Relationship Specialty Start Date End Date Deangelo Noel MD [address] [place] [address] PCP - General Family Medicine 09/30/18 [facility] [address] [place] [address] Pharmacist Pharmacy 07/14/18 Darren Zarate DO [address] [place] [address] Meter/Relay Technician Emergency Medicine 06/04/20 Food Service Steward Relationship Specialty Start Date End Date Deangelo Noel MD [address] [place] [address] PCP - General Family Medicine 09/30/18 [facility], [facility] [address] [place] [address] Pharmacist Pharmacy 07/14/18 Darren Zarate DO [address] [place] [address] Meter/Relay Technician Emergency Medicine 06/04/20 Food Service Steward Relationship Specialty Start Date End Date Deangelo Noel MD [address] [facility] [place] [address] PCP - General Family Medicine 09/30/18 [facility], [facility] [address] [facility] [place] [address] Pharmacist Pharmacy 07/14/18 Darren Zarate, DO [address] [place] [address] Meter/Relay Technician Emergency Medicine 06/04/20 Food Service Steward Relationship Specialty Start Date End Date Deangelo Noel MD [address] [facility] [place] [address] PCP - General Family Medicine 09/30/18 [facility], [facility] [address] [place] [address] Pharmacist Pharmacy 07/14/18 Darren Zarate DO [address] [place] [address] Meter/Relay Technician Emergency Medicine 06/04/20 Team Status: Active [...] Dr. Gatito Reed DO Emergency Provider Active Food Service Steward Relationship Specialty Start Date End Date Phillip Howe, SERVICES ADVISOR.CLAY ARTIST [address] [facility] [place] [address] PCP - General Family Medicine 09/22/22 09/22/22 Fidelina Rogel, [facility] [address] [facility] [place] [address] Pharmacist Pharmacy 07/14/18 Darren Zarate DO [address] [place] [address] Meter/Relay Technician Emergency Medicine 06/04/20 Food Service Steward Relationship Specialty Start Date End Date [facility] [address] [facility] [place] [address] Pharmacist Pharmacy 07/14/18 Darren Zarate DO [address] [place] [address] Meter/Relay Technician Emergency Medicine 06/04/20 Food Service Steward Relationship Specialty Start Date End Date Fidelina Rogel, [facility] [address] [facility] [place] [address] Pharmacist Pharmacy 07/14/18 Darren Zarate DO [address] [place] [id number] Meter/Relay Technician Emergency Medicine 06/04/20 Team Status: Inactive [...] Status Kevin ORELLANA MD Family Provider Active Dr. Deangelo [...] 05, 2025 End: February 05, 2025 Dr. Saarh Oh MD Other Provider Active St art: [...] April 21, 2025 End: April 21, 2025 Team Status: Active Member Role/Relationship Status Dates No Primary Care Physician Primary care physician Activ e Team Status: Inactive Member Role/Relationship Status Dates No Primary Care Physician Primary care physician Activ e Start: February 27, 2025 End: February 28, 2025 Dr. Arik Boswell MD Emergency Department Physician Active Start: February 27, 2025 End: February 28, 2025 Dr. Marcelina Erickson MD Admitting physician Active Start: February 27, 2025 End: February 28, 2025 Dr. Marcelina Erickson MD Nurse Practitioner Active Start: February 27, 2025 End: February 28, 2025 Dr. Berny Nelson MD Attending physician Active Start: February 27 End: February 28, 2025 Team Status: Active Member Role/Relationship Status Dates No Primary Care Physician Primary care physician Activ e Start: February 28, 2025 Dr. rAik Boswell MD Emergency Department Physician Active Start: February 28, 2025 Dr. Marcelina Erickson MD Admitting physician Active Start: February 28, 2025 Dr. Marcelina Erickson MD Nurse Practitioner Active Start: February 28, 2025 Dr. Berny Nelson MD Attending physician Active Start: February 28 Dr. Berny Nelson MD Nurse Practitioner Active Start: February 28 Team Status: Inactive Member Role/Relationship Status Dates No Primary Care Physician Primary care physician Activ e Start: April 21, 2025 End: April 21, 2025 Dr. Arik Boswell MD Attending physician Active St art: April 21, 2025 End: April 21, 2025 Dr. Arik Boswell MD Emergency Department Physician Active Start: April 21, 2025 End: April 21, 2025 Team Status: Inactive Member Role/Relationship Status Dates Dr. Trent Vega DO Attending physician Active Start: May 25, 2025 End: May 26, 2025 Dr. Trent Vega , DO Emergency Departme nt Physician Active Start: May 25, 2025 End: May 26, 2025 No Primary Care Physician Primary care physician Activ e Start: May 25, 2025 End: May 26, 2025 Team Status: Inactive Member Role/Relationship Status Dates No Primary Care Physician Primary care physician Activ e Start: June 09, 2025 End: June 10, 2025 Dr. Babita Rivera , DO Emergency Departmen t Physician Active Start: June 09, 2025 End: June 10, 2025 Dr. Sarah Oh MD Admitting physician Active Start: June 09, 2025 End: June 10, 2025 Dr. Sarah Oh MD Nurse Practitioner Active Start: June 09, 2025 End: June 10, 2025 Dr. Marcelina Erickson MD Attending physician Active Start: June 09, 2025 End: June 10, 2025 Team Status: Active Member Role/Relationship Status Dates No Primary Care Physician Primary care physician Activ e Start: June 10, 2025 Dr. Babita Rivera , Emergency Departmen t Physician Active Start: June 10, 2025 Dr. Sarah Oh MD Admitting physician Active Start: June 10, 2025 Dr. Sarah Oh MD Nurse Practitioner Active Start: June 10, 2025 Dr. Marcelina Erickson MD Attending physician Active Start: June 10, 2025 Dr. Marcelina Erickson MD Nurse Practitioner Active Start: June 10, 2025 Goals (unrecognized section and content) Goals [...] BE BASED ON THE PRIMARY CLINICAL RECORDS. [employer] provides no warranty or guarantee of the accuracy or completeness of information in this document.
[2025-07-20] MEDS: 0.9% Normal Saline (1000mL) 1,000 ML 999 ML IV ×2 (00:21→01:43)
[2025-07-20 00:38] LABS: SITE Not entered; VBG BASE EXCESS -2 mmol/L (-1.0-3.5); VBG PO2 26 mmHg (25-40); VBG SO2 43 % (50-70); VBG TCO2 25 mmol/L (23-33)
[2025-07-20 00:48] LABS: Mucous, Urine 0 SEEN /hpf (<or=2+); Red Blood Cells-Urine 0 SEEN /hpf (0-5); Squamous Epithelial Cells - UA 0 SEEN /hpf (0-5)
[2025-07-20 00:56] LABS: Color, Urine Yellow (Yellow); Glucose, Dipstick 1000 mg/dl (Normal); Ketone-Dipstick Negative (Negative); Leukocyte Esterase-Dipstick Negative /ul (Negative); Nitrite-Dipstick Negative (Negative); Occult Blood-Urine Negative /ul (Negative); Protein-Dipstick Negative (Negative); Specific Gravity, Urine 1.010 (1.002-1.030); Urine Bilirubin Dipstick Negative (Negative)
[2025-07-20 01:25] LABS: AST(SGOT) 13 U/L (<=37); Alanine Aminotransfer ALT/SGPT 21 U/L (<=46); Albumin, Serum 3.7 g/dL (3.5-5.0); Alkaline Phosphatase 143 U/L (40-129); Anion Gap 13 (5-15); BUN 12 mg/dL (4-19); BUN/Creat Ratio 12.4 RATIO (10-20); Calcium,Total 9.3 mg/dL (7.6-11.0); Carbon Dioxide 20.3 mmol/L (21.0-32.0); Chloride 94 mmol/L (98-108); Estimated Creatinine Clearance 94.81 ml/min (50-250); Globulin 2.9 g/dL (2.2-4.2); Potassium 3.6 mmol/L (3.3-5.1)
[2025-07-20 01:31] LABS: Glucose 753 mg/dL (70-99)
--- NOTE | 2025-07-20 01:51 | EDS_ITS ---
HPI History of Present Illness Chief Complaint: Dizziness Narrative Narrative: Patient was seen and examined after presenting to ED for feeling dizzy and lightheaded also having hyperglycemia he is a diabetic states that they are trying to adjust his medications to get his glucose levels under control. PFSH PFSH Medical History Chewing tobacco dependence Marijuana smoker Asthma Hypertension Chronic anemia Learning difficulty due to cognitive limitations Noncompliance with medication regimen H/O fracture of skull Anxiety and depression Type I diabetes mellitus, uncontrolled Tobacco use Home Medications ?Medication ?Instructions ?Recorded ?Last Taken ?Type insulin lispro 100 unit/mL See Rx Instructions SQ TIDC M short 03/05/21 03/04/21 History subcutaneous pen acting insulin insulin glargine 100 unit/mL (3 30 unit subcut QPM linda betes 08/18/22 Unknown History mL) subcutaneous pen (Lantus Solostar U-100 Insulin) insulin syringe-needle U-100 0.5 10/19/24 Unknown His tory mL 31 gauge x 5/16 (TRUEplus Insulin) hydrocodone-acetaminophen 5-325mg 1 tab PO Q6H PRN PRN Pain 2 days 04/21/25 Unknown Rx 5mg-325mg #6 TABLETS metoprolol tartrate 25 mg tablet 25 mg PO BID PRN PRN palpitations 06/09/25 Unknown History Allergy/AdvReac Type Severity Reaction Status Date / Time No Known Allergies Allergy Verified 07/19/25 23:56 Family History Father Diabetes Mother , Age 26. Heart disease CAD (coronary artery disease) Hypertension Heart failure Surgical History H/O skin graft Social History household members: family Smoking Status: Current some day smoker tobacco type: cigarettes, e-cigarettes and smokeless tobacco Smokeless tobacco user: chewing tobacco second hand exposure: Yes alcohol intake: never substance use type: does not use ROS ROS ED ROS Narrative Pertinent Positives: Dizzy lightheaded hyperglycemic diabetic Pertinent Negatives: Fevers chills vomiting diarrhea urinary symptoms The remainder of review of systems negative unless otherwise stated in the HPI above. Systems reviewed including constitutional, psychiatric, cardiovascular, respiratory, integument, HENT, gastrointestinal. EXAM Physical Exam Narrative Exam Narrative: Patient is afebrile but is tachycardic hemodynamically his blood pressure is stable does not appear toxic or in distress abdomen is soft nontender nond istended he has intact and equal MSPs does not appear to have any overlying skin infections. Const Vital Signs: 07/19/25 23:52 07/19/25 23:54 07/20/25 01:52 Temperature 98.0 F Temperature Source Oral Pulse Rate 116 H 117 H 106 H Respiratory Rate 18 18 Blood Pressure 140/101 H 132/100 H Blood Pressure Mean 114 110 Pulse Ox 100 100 Oxygen Delivery Method Room Air Room Air 07/20/25 02:00 Temperature Temperature Source Pulse Rate 109 H Respiratory Rate 16 Blood Pressure 127/90 H Blood Pressure Mean 102 Pulse Ox 100 Oxygen Delivery Method Room Air MDM MDM MDM Narrative Medical decision making narrative: Nursing notes, triage notes, available previous documentation, and vital signs were reviewed. Any discrepancies noted were addressed. Differential Diagnoses: Could be in DKA or HHS could be viral we will evaluate for UTI Interventions: Potassium replacement insulin Fluids Given: 2 L normal saline Labs Reviewed: Lactic acid is 1.7. Venous blood gas shows a pH of 7.33 with a pCO2 of 44 bicarb of 24. No leukocytosis leukopenia anemia has pseudohyponatremia 128 given the fact that they are hyperglycemic at 753 on the CHEM panel no renal insufficiency potassium was 3.6 no transaminitis [id number] glucose just a few moments ago was down to 388. Anion gap was 13 Imaging Reviewed: Personally reviewed and interpreted by me: Chest x-ray no pneumonia edema widened mediastinum or pneumothoraces EKG: Sinus tachycardia rate of [address] segment elevation. EKG interpretation is noted and agreed to in the EMR. The interpretation of this patient's EKG contributed directly to the care and management of this patient. Previous Documentation Reviewed: None available or applicable at this time. ED Course: Patient presenting with symptoms as described above he will be given IV fluids evaluate for evidence of DKA patient is hyperglycemic. 07/20/2025 0240: Patient is resting comfortably in the room heart rates improved he is on his phone watching something 0315: Patient's labs and imaging for the most part fairly unremarkable besides his hyperglycemia. Given potassium replacement plus insulin. 0352: Beta-hydroxybutyrate is only 1.3 patient will be discharged This note was made utilizing voice recognition software. All attempts were made to correct spelling or other errors prior to note completion. However, due to the fast-paced nature of emergency medicine, some errors may still be present. Lab Data Labs: Laboratory Results - last 24 hr 07/19/25 07/20/25 07/20/25 00:00 00:00 00:18 WBC 9.7 RBC 5.37 Hgb 13.8 Hct 41.8 MCV 77.8 L MCH 25.7 L MCHC 33.0 RDW Std Deviation 38.1 RDW Coeff of Alec 13.4 Plt Count 373 MPV 10.4 Immature Gran % (Auto) 1.000 H Neut % (Auto) 47.5 Lymph % (Auto) 37.6 [place] % (Auto) 8.0 Eos % (Auto) 5.1 H Baso % (Auto) 0.8 Absolute Neuts (auto) 4.6 Absolute Lymphs (auto) 3.65 Nucleated RBC % 0 Sodium 128 L Potassium 3.6 Chloride 94 L Carbon Dioxide 20.3 L Anion Gap 13 BUN 12 Creatinine 0.95 Estim Creat Clear Calc 94.81 Est GFR (MDRD) Non-Af 111 BUN/Creatinine Ratio 12.4 Glucose 753 H* Lactic Acid 1.7 Calcium 9.3 Total Bilirubin 0.22 AST 13 ALT 21 Alkaline Phosphatase 143 H Total Protein 6.6 Albumin 3.7 Globulin 2.9 Albumin/Globulin Ratio 1.3 b-Hydroxybutyric mmol/L Cancelled 1.3 H Urine Color Urine Clarity Urine pH Ur Specific [place] Urine Protein Urine Glucose (UA) Urine Ketones Urine Occult Blood Urine Nitrite Urine Bilirubin Urine Urobilinogen Ur Leukocyte Esterase Urine RBC Urine WBC Ur Squamous Epith Cells Urine Bacteria Urine Mucus POC Glucose 07/20/25 07/20/25 07/20/25 00:43 01:19 02:25 WBC RBC Hgb Hct MCV MCH MCHC RDW Std Deviation RDW Coeff of Alec Plt Count MPV Immature Gran % (Auto) Neut % (Auto) Lymph % (Auto) [place] % (Auto) Eos % (Auto) Baso % (Auto) Absolute Neuts (auto) Absolute Lymphs (auto) Nucleated RBC % Sodium Potassium Chloride Carbon Dioxide Anion Gap BUN Creatinine Estim Creat Clear Calc Est GFR (MDRD) Non-Af BUN/Creatinine Ratio Glucose Lactic Acid Calcium Total Bilirubin AST ALT Alkaline Phosphatase Total Protein Albumin Globulin Albumin/Globulin Ratio b-Hydroxybutyric mmol/L Urine Color Yellow Urine Clarity Clear Urine pH 6.0 Ur Specific [place] 1.010 Urine Protein Negative Urine Glucose (UA) 1000 H Urine Ketones Negative Urine Occult Blood Negative Urine Nitrite Negative Urine Bilirubin Negative Urine Urobilinogen Normal Ur Leukocyte Esterase Negative Urine RBC 0 SEEN Urine WBC 0 SEEN Ur Squamous Epith Cells 0 SEEN Urine Bacteria 0 SEEN Urine Mucus 0 SEEN POC Glucose > 500 H* 388 H ABG Data ABG results: ABG 07/20/25 00:34 Specimen Type JAIDEN Sample Site Not entered VBG pH 7.34 VBG pO2 26 VBG HCO3 24 VBG Total CO2 25 VBG O2 Sat (Calc) 43 L VBG Base Excess -2 L POC Mix VBG pCO2 Pt Tmp 43.9 O2 Delivery Device Room Air Radiography Diagnostic Testing: Clinical Impression(s) from Imaging Studies Chest X-Ray 07/19/25 00:15 IMPRESSION: No evidence for acute abnormality. [facility] Discharge Plan Triage Chief Complaint: Dizziness ED Provider: Clara Eaton Dx/Rx/DC Orders Clinical Impression: Lightheadedness, Hyperglycemia, History of diabetes mellitus Instructions: ED Diabetic Hyperglycemia Prescriptions: No Action insulin lispro 100 UNIT/ML insulin pen See Rx Instructions SQ TIDCM Rx Instructions: SLIDING SCALE SQ 3 times daily with meals; +SLIDING SCALE insulin glargine [Lantus Solostar U-100 Insulin] 100 unit/mL (3 mL) insulin pen 30 unit subcut QPM (DME) insulin syringe-needle U-100 [TRUEplus Insulin] 0.5 mL 31 gauge x 5/16 syringe 1 syringe MISCELLANEOUS 4X/DAY hydrocodone-acetaminophen 5-325 mg tablet 1 tab PO Q6H PRN PRN (Reason: Pain) 2 Days Qty: 6 0RF metoprolol tartrate 25 mg tablet 25 mg PO BID PRN PRN (Reason: palpitations) Primary Care Provider: Kristy Crespo [facility] Referrals: Care Physician,No Primary [Non-Staff, Medical] Activity Restrictions/Additional Instructions: You need to follow-up with your doctor you need to try and figure out how to better manage your diabetes may need more changes. Please return if you are getting worse. Print Language: Maldivian Disposition Disposition: Home, Self Care
[2025-07-20 01:52] VITALS: BP 132/100; PULSE 106; RESP 18; O2SAT 100
[2025-07-20 02:00] VITALS: BP 127/90; PULSE 109; RESP 16; O2SAT 100
[2025-07-20] MEDS: Potassium Chloride Oral Soln 20 MEQ/15 ML UDC 40 MEQ PO (03:35)
[2025-07-20] MEDS: Insulin Lispro 10 UNIT in Syringe 0 ML 6 UNIT IV (03:36)
[2025-07-20 03:39] LABS: BETA-HYDROXYBUTYRATE 1.3 mmol/L (0.0-0.3)
[2025-07-20 04:21] VITALS: BP 127/91; PULSE 120; RESP 12; O2SAT 100
[2025-07-20 04:36] VITALS: BP 146/76; PULSE 86; RESP 16; TEMP 37.2; O2SAT 98
== END 2025-07-20 04:37 | disposition home or self-care (01) ==
PROVIDERS: Emergency Provider Specialist/Technologist Athletic Trainer; Visit Provider Specialist/Technologist Athletic Trainer
DX: R42 Dizziness and giddiness (principal); E10.65 Type 1 diabetes mellitus with hyperglycemia; F17.210 Nicotine dependence, cigarettes, uncomplicated; F17.290 Nicotine dependence, other tobacco product, uncomplicated; F17.220 Nicotine dependence, chewing tobacco, uncomplicated
CPT/HCPCS: 71045; 80053; 81001; 82010; 82803; 82962; 83605; 85025; 93005; 96360; 96361; 99285; A4216

== ENCOUNTER 2025-08-07 11:18 | Observation (INO) | payer MEDICAID, SELFPAY ==
[2025-08-07] VITALS (14 sets, daily range): BP systolic 112–157; BP diastolic 71–127; PULSE 106–132; RESP 13–20; TEMP 36.3–37; O2SAT 96–100; BMI 18.5; BMI 17.2
[2025-08-07] MEDS: 0.9% Normal Saline (1000mL) 1,000 ML 999 ML IV (12:05)
[2025-08-07 12:07] LABS: Hematocrit 42.2 % (40-54); Hemoglobin 13.6 g/dL (13.0-16.5); Immature Granulocytes Count 0.040 X10^3/uL (0.0-0.0); Mean Corp Hgb Conc 32.2 g/dL (32-36); Mean Corpuscular Volume 81.0 fL (80-94); Mean Platelet Vol. 11.1 fl (6.2-12.0); NRBC Flagged by Analyzer 0 % (0-5); Platelet Count 304 K/mm3 (150-450); RBC Distribution Width CV 13.8 % (11.6-14.6); RBC Distribution Width SD 40.4 fl (35.1-43.9); Red Blood Count 5.21 M/mm3 (4.6-6.2); White Blood Count 10.9 K/mm3 (4.4-11.0)
--- NOTE | 2025-08-07 12:25 | EKG12_ITS ---
Test Reason : PALP Blood Pressure : */* mmHG Vent. Rate : 115 BPM Atrial Rate : 115 BPM P-R Int : 164 ms QRS Dur : 84 ms QT Int : 314 ms P-R-T Axes : 66 40 48 degrees QTcB Int : 434 ms Sinus tachycardia Otherwise normal ECG Confirmed by Richard Armendariz ([id number]), editor sound DOMINIC KEENE ([id number]) on 08/13/2025 9:00:30 AM Referred By: TB/BB Confirmed By: Richard Armendariz
[2025-08-07 12:42] LABS: SITE Not entered; VBG BASE EXCESS -10 mmol/L (-1.0-3.5); VBG PO2 107 mmHg (25-40); VBG SO2 99 % (50-70); VBG TCO2 13 mmol/L (23-33)
[2025-08-07 12:56] LABS: BETA-HYDROXYBUTYRATE 3.1 mmol/L (0.0-0.3)
[2025-08-07 12:58] LABS: Anion Gap 21 (7-18); BUN 12 mg/dL (4-19); BUN/Creat Ratio 15.8 RATIO (10-20); Calcium,Total 8.4 mg/dL (7.6-11.0); Carbon Dioxide 14.6 mmol/L (20.0-29.0); Chloride 88 mmol/L (96-106); Estimated Creatinine Clearance 132.18 ml/min (50-250); Glucose 714 mg/dL (70-99); Potassium 4.5 mmol/L (3.5-5.1)
--- NOTE | 2025-08-07 13:17 | EX.ED.DYSGE1 ---
HPI History of Present Illness Chief Complaint: Palpitations Informant: patient Narrative Narrative: Patient is a 30-year-old male with a history of palpitations presenting to the ED with palpitations, dizziness, and mild dyspnea since last night. - Reports palpitations described as racing and skipping since last night. - Has experienced similar episodes since age 15. - Associated symptoms include dizziness, lightheadedness, and mild dyspnea. - Denies chest pain, recent illness, leg pain, swelling, or blood clots. - No recent drug use; taking Humalog, Lantus, and ibuprofen as prescribed; no missed insulin doses. - Family history of similar symptoms. PFSH PFSH Medical History Chewing tobacco dependence Marijuana smoker Asthma Hypertension Chronic anemia Learning difficulty due to cognitive limitations Noncompliance with medication regimen H/O fracture of skull Anxiety and depression Type I diabetes mellitus, uncontrolled Tobacco use Home Medications ?Medication ?Instructions ?Recorded ?Last Taken ?Type insulin lispro 100 unit/mL See Rx Instructions SQ TIDCM short 03/05/21 03/04/21 History subcutaneous pen acting insulin insulin glargine 100 unit/mL (3 30 unit subcut QPM diabetes 08/18/22 Unknown History mL) subcutaneous pen (Lantus Solostar U-100 Insulin) insulin syringe-needle U-100 0.5 10/19/24 Unknown History mL 31 gauge x 12/22 (TRUEplus Insulin) metoprolol tartrate 25 mg tablet 25 mg PO BID PRN PRN palpitations 06/09/25 08/05/25 History ibuprofen 200 mg tablet (Advil) 200 mg PO TID 08/07/25 Unknown History Allergy/AdvReac Type Severity Reaction Status Date / Time No Known Allergies Allergy Verified 08/07/25 11:21 Family History Father Diabetes Mother , Age 26. Heart disease CAD (coronary artery disease) Hypertension Heart failure Surgical History H/O skin graft Social History household members: family Smoking Status: Current some day smoker tobacco type: cigarettes, e-cigarettes and smokeless tobacco Smokeless tobacco user: chewing tobacco second hand exposure: Yes alcohol intake: never substance use type: does not use ROS ROS ED Constitutional Constitutional ED: Denies chills or fever(s) Eyes Eyes: Denies change in vision or diplopia ENT ENT ED: Denies rhinorrhea or sore throat Cardiovascular Cardiovascular: Reports lightheadedness, palpitations and racing heartbeat; Denies chest pain or syncope Respiratory/Chest Respiratory/Chest: Reports dyspnea; Denies cough Gastrointestinal Gastrointestinal: Denies abdominal pain, diarrhea, nausea or vomiting Genitourinary Genitourinary ED: Denies dysuria or hematuria Musculoskeletal Musculoskeletal: Denies back pain or neck pain Integumentary Denies abscess or rash Neurologic Neurologic: Denies headache(s), paresthesias or weakness Psychiatric Psychiatric: Denies anxiety or suicidal thoughts EXAM Physical Exam Const Vital Signs: 08/07/25 11:19 08/07/25 11:26 08/07/25 13:19 Temperature 97.3 F L Temperature Source Temporal Pulse Rate 120 H 115 H Respiratory Rate 16 13 Respiratory Effort Normal Blood Pressure 128/87 H 134/101 H Blood Pressure Mean 100 112 Pulse Ox 100 100 Oxygen Delivery Method Room Air Room Air Positive well nourished and well developed General Appearance ED: well developed and NAD HEENT Reports moist mucous membranes normocephalic and atraumatic Eyes PERRL and EOMs intact bilaterally Neck full ROM and supple Resp normal respiratory effort and clear to auscultation bilaterally Cardio regular rate, regular rhythm and no murmurs Rate: tachycardic GI non-tender and non-distended Auscultation: normoactive bowel sounds Palpation: soft Back/Spine no CVA tenderness General Back: other FROM Extremity normal to inspection General Extremety ED: Negative for edema, pulses abnormal or tenderness General Extremity: Negative for edema or pulses abnormal Neuro oriented x3, CN's II-XII intact bilaterally and no sensory deficits noted Sensorium / Orientation: awake and alert Motor Exam: strength 5/5 throughout Skin no rashes or lesions noted and no wounds MDM MDM MDM Narrative Medical decision making narrative: I reviewed prior labs, a prior ED visit, and a prior Holter monitor. He has had work-up in the past in the ER for similar symptoms, sometimes including chest pain. This work-up included evaluation for PE with a D-dimer and a CT angiography of the chest, which were normal and negative for PE. Therefore, I do not think this needs to be explored again, as he has no risk factors for DVT or PE, no symptoms of DVT, and no history of either. His EKG shows sinus tachycardia at a rate of 115 to 120. His Holter monitor demonstrated sinus rhythm with no ectopy or dysrhythmias. His heart rate ranged from 86 to 160, with an average of 111 over a 48-hour period. We are evaluating him for possible DKA, although he appears well, and we will give him a liter of fluids in the meantime. His workup shows significant hyperglycemia with a glucose of 714. His beta-hydroxybutyrate is elevated at 3.1. His bicarbonate is low at 14.6, with an elevated anion gap of 21. However, his pH is 7.52, suggesting a mixed anion gap acidosis and an acute respiratory alkalosis. His sodium is 123, but when corrected is 133, which is unremarkable. I discussed the acid-base disorder with Dr. Pena, who agrees to treat him as DKA and admit him to the ICU on an insulin drip. This may also be related to a superimposed hyperventilation episode or anxiety attack. The patient began vomiting while here, which we treated with Zofran, and he is now feeling better. Katelyn checked his blood sugar at home this morning, and it was in the 120s. He has been compliant with his insulin and avoiding excess sugar. After a liter of fluid, his heart rate is 115, blood pressure is normal, and other vital signs are stable. He is not hypoxic and has no symptoms of influenza or other respiratory or urinary illness. He is admitted to the ICU and has been started on an insulin drip in the ED. discussed with hospitalist. History & Record Review Additional record(s) reviewed:: Prior ED visit and Prior labs Lab Data Attestation: I reviewed the patient's lab results. Labs: Laboratory Results - last 24 hr 08/07/25 11:35 WBC 10.9 RBC 5.21 Hgb 13.6 Hct 42.2 MCV 81.0 MCH 26.1 L MCHC 32.2 RDW Std Deviation 40.4 RDW Coeff of Alec 13.8 Plt Count 304 MPV 11.1 Immature Gran % (Auto) 0.400 Neut % (Auto) 60.9 Lymph % (Auto) 29.4 [place] % (Auto) 6.7 Eos % (Auto) 2.0 Baso % (Auto) 0.6 Absolute Neuts (auto) 6.6 Absolute Lymphs (auto) 3.20 Nucleated RBC % 0 Sodium 123 L Potassium 4.5 Chloride 88 L Carbon Dioxide 14.6 L Anion Gap 21 H BUN 12 Creatinine 0.75 Estim Creat Clear Calc 132.18 Est GFR (MDRD) Non-Af 126 BUN/Creatinine Ratio 15.8 Glucose 714 H* Calcium 8.4 b-Hydroxybutyric mmol/L 3.1 H ABG Data ABG results: ABG 08/07/25 12:38 Specimen Type JAIDEN Sample Site Not entered VBG pH 7.52 H VBG pO2 107 H VBG HCO3 13 L VBG Total CO2 13 L VBG O2 Sat (Calc) 99 H VBG Base Excess -10 L POC Mix VBG pCO2 Pt Tmp 15.4 L* O2 Delivery Device Not entered Crit Call To/Read Back Yes Blood Gas Notified Whom bb Blood Gas Notified Time 12:40:04 Rhythm Strip Rhythm Strip: Sinus Tach Rate: 120 Ectopy: None EKG Initial EKG: Attestation: I personally reviewed and interpreted this EKG as follows: Interpretation: No Acute Injury Pattern and Sinus Tachycardia Management Discussion w/another healthcare provider: Hospitalist and Personnel Training Officer (MAURO Pena) Critical Care Time Critical Care Time: Yes Critical care time (excluding procedures): 30-74 minutes (34 min), Including time spent:, Discussing w/Patient &/or Family/[employer] Science Teacher, Discussing w/Consultants, Arranging Admission or Transfer and Performing Direct Patient Care at Bedside Discharge Plan Dx/Rx/DC Orders Clinical Impression: DKA (diabetic ketoacidosis), DM type 1 (diabetes mellitus, type 1), Rapid palpitations, Acute respiratory alkalosis Disposition Disposition: [facility]
[2025-08-07] MEDS: Insulin Lispro 100 UNIT in 0.9% Normal Saline (100mL Bag) 99 ML 10.4 UNIT CONT INF (14:01)
[2025-08-07 14:07] LABS: Anion Gap 13 (7-18); Carbon Dioxide 20.7 mmol/L (20.0-29.0); Chloride 93 mmol/L (96-106); Magnesium 2.1 mg/dL (1.5-2.2); Potassium 5.0 mmol/L (3.5-5.1)
[2025-08-07] MEDS: Dext 5%-0.45% NS 1,000 ML 150 ML IV (15:10)
[2025-08-07 17:28] LABS: Magnesium 1.9 mg/dL (1.5-2.2)
[2025-08-07 17:30] LABS: Anion Gap 15 (7-18); Carbon Dioxide 17.8 mmol/L (20.0-29.0); Chloride 106 mmol/L (96-106); Potassium 3.3 mmol/L (3.5-5.1)
[2025-08-07] MEDS: 0.9% Normal Saline (1000mL) 1,000 ML 150 ML IV (18:04)
[2025-08-07] MEDS: Potassium Chloride Oral Tablet 20 MEQ 40 MEQ PO (18:04)
[2025-08-07] MEDS: Insulin Glargine-YFGN 100 UNIT/ML Pen 20 UNIT SC (18:17)
--- NOTE | 2025-08-07 18:30 | HP.PCM.HOS_ITS ---
HPI - General General Date of Admission: 08/07/25 Date of Service: 08/07/25 Chief Complaint: Palpitations, elevated blood sugar HPI Narrative UNA DURON, is a 30 M who presents to the emergency room at [facility] with a chief complaint of palpitations and elevated blood sugars. He also complained of feeling lightheaded and mildly dyspneic. Patient has a history of diabetes. Workup in the emergency room included CBC which was unremarkable, chemistry panel showed a sodium of 123, chloride of 88, anion gap of 21, and a glucose of 714. Beta hydroxybutyric acid was 3.1, venous blood gas showed a pH of 7.52. Patient had a sinus tachycardia. Patient was felt to be in DKA, he was placed on an insulin drip and given fluids, he will be admitted to ICU for further care. [facility] Medical History Chewing tobacco dependence Marijuana smoker Asthma Hypertension Chronic anemia Learning difficulty due to cognitive limitations Noncompliance with medication regimen H/O fracture of skull Anxiety and depression Type I diabetes mellitus, uncontrolled Tobacco use Home Medications ?Medication ?Instructions ?Recorded ?Last Taken ?Type insulin lispro 100 unit/mL See Rx Instructions SQ TIDC M short 03/05/21 03/04/21 History subcutaneous pen acting insulin insulin glargine 100 unit/mL (3 30 unit subcut QPM linda betes 08/18/22 Unknown History mL) subcutaneous pen (Lantus Solostar U-100 Insulin) insulin syringe-needle U-100 0.5 10/19/24 Unknown His tory mL 31 gauge x 5/16 (TRUEplus Insulin) metoprolol tartrate 25 mg tablet 25 mg PO BID PRN PRN palpitations 06/09/25 08/05/25 History ibuprofen 200 mg tablet (Advil) 200 mg PO TID 08/07/25 Unknown History Allergy/AdvReac Type Severity Reaction Status Date / Time No Known Allergies Allergy Verified 08/07/25 11:21 Family History Father Diabetes Mother , Age 26. Heart disease CAD (coronary artery disease) Hypertension Heart failure Surgical History H/O skin graft Social History household members: family Smoking Status: Current some day smoker tobacco type: cigarettes, e-cigarettes and smokeless tobacco Smokeless tobacco user: chewing tobacco second hand exposure: Yes alcohol intake: never substance use type: does not use ROS Constitutional Constitutional: Denies anorexia, change in weight, chills, fatigue, fever(s), night sweats or weakness Eyes Eyes: Denies blurry vision, change in vision, discharge from eye(s) or eye pain Cardiovascular Cardiovascular: Reports palpitations and rapid heart rate; Denies chest pain, claudication or edema Respiratory/Chest Respiratory/Chest: Denies cough, hemoptysis, shortness of breath at rest or shortness of breath with exertion Gastrointestinal Gastrointestinal: Denies abdominal pain, constipation, diarrhea, hematemesis, hematochezia, melena, nausea or vomiting Genitourinary Genitourinary: Denies dysuria, hematuria, urinary frequency, urinary hesitancy, urinary incontinence or urinary urgency Musculoskeletal Musculoskeletal: Denies back pain, joint pain, joint stiffness, joint swelling, myalgias or neck pain Neurologic Neurologic: Denies abnormal gait, abnormal speech, dizziness, focal weakness, headache(s), loss of vision, numbness, other visual disturbances, paresthesias, syncope or tingling Psychiatric Psychiatric: Denies anxiety, cognitive impairment, depression, irritability, mood swings or suicidal ideation Endocrine Endocrinology: Denies change in body appearance, cold intolerance, excessive sweating, heat intolerance, polydipsia or polyuria Hematologic/Lymphatic Hematologic/Lymphatic: Denies none, anemia, easy bleeding, easy bruising or lymphadenopathy Allergic/Immunologic Allergic/Immunologic: Denies rhinitis, urticaria, eczemia or asthma Patient's Goals Of Care . What would you like to achieve or improve as a result of your hospital stay?: To feel better with less palpitations Vital Signs Vital Signs Vital Signs: 08/07/25 11:19 08/07/25 11:26 08/07/25 13:19 Temperature 97.3 F L Temperature Source Temporal Pulse Rate 120 H 115 H Respiratory Rate 16 13 Respiratory Effort Normal Blood Pressure 128/87 H 134/101 H Blood Pressure Mean 100 112 Blood Pressure Source Blood Pressure Position Blood Pressure Location Pulse Ox 100 100 Oxygen Delivery Method Room Air Room Air 08/07/25 14:36 08/07/25 14:59 08/07/25 15:14 Temperature 98.6 F 97.9 F Temperature Source Core Pulse Rate 126 H 117 H 118 H Respiratory Rate 18 18 20 H Respiratory Effort Blood Pressure 115/83 H 124/90 H 116/75 Blood Pressure Mean 93 101 88 Blood Pressure Source Monitor Monitor Blood Pressure Position Semi-Fowlers Semi-Fowlers Blood Pressure Location Left Arm Left Arm Pulse Ox 100 99 99 Oxygen Delivery Method Room Air Room Air 08/07/25 15:29 08/07/25 16:00 08/07/25 17:00 Temperature Temperature Source Pulse Rate 115 H 109 H 108 H Respiratory Rate 18 18 14 Respiratory Effort Blood Pressure 112/73 120/71 126/81 H Blood Pressure Mean 86 87 96 Blood Pressure Source Monitor Monitor Monitor Blood Pressure Position Semi-Fowlers Semi-Fowlers Sitting Blood Pressure Location Left Arm Left Arm Pulse Ox 97 98 99 Oxygen Delivery Method Room Air Room Air Room Air 08/07/25 18:00 Temperature Temperature Source Pulse Rate 123 H Respiratory Rate 20 H Respiratory Effort Blood Pressure 150/106 H Blood Pressure Mean 120 Blood Pressure Source Monitor Blood Pressure Position Sitting Blood Pressure Location Pulse Ox 99 Oxygen Delivery Method Room Air Weight Weight: 57.6 kg Body Mass Index (BMI) 17.2 Physical Exam Const alert, oriented x3 and no apparent distress General Appearance: cooperative and well developed Orientation / Consciousness: awake, oriented to person, oriented to place and oriented to time HEENT normocephalic, head/scalp atraumatic and hearing grossly normal bilaterally HEENT Narrative: Mucous membranes are dry Eyes PERRL, EOMs intact bilaterally and conjunctivae normal Neck supple, no JVD and thyroid normal General: trachea midline Resp normal respiratory effort and clear to auscultation bilaterally Auscultation: Negative for rales, rhonchi or wheezes Cardio regular rate, regular rhythm, S1 normal heart sound, S2 normal heart sound, no murmurs, no rub and no gallops Cardio Narrative: Heart rate and rhythm was regular, he was tachycardic GI normal to inspection, nondistended, normoactive bowel sounds, soft to palpation, non-tender and non-distended Extremity no clubbing, cyanosis or edema Skin no rashes or lesions noted General Skin Exam: no breakdown Neuro oriented x3, CN's II-XII intact bilaterally, moves all extremities, no focal motor deficits and no sensory deficits noted Sensorium / Orientation: awake and alert Speech: speech normal Psych affect normal Results Lab / Micro Data 12/30/25 11:35 08/07/25 16:57 Labs: Laboratory Results - last 24 hr 08/07/25 11:35: WBC 10.9, RBC 5.21, Hgb 13.6, Hct 42.2, MCV 81.0, MCH 26.1 L, MCHC 32.2, RDW Std Deviation 40.4, RDW Coeff of Alec 13.8, Plt Count 304, MPV 11.1, Immature Gran % (Auto) 0.400, Neut % (Auto) 60.9, Lymph % (Auto) 29.4, [place]lan % (Auto) 6.7, Eos % (Auto) 2.0, Baso % (Auto) 0.6, Absolute Neuts (auto) 6.6, Absolute Lymphs (auto) 3.20, Nucleated RBC % 0, Sodium 123 L, Potassium 4.5, Chloride 88 L, Carbon Dioxide 14.6 L, Anion Gap 21 H, BUN 12, Creatinine 0.75, Estim Creat Clear Calc 132.18, Est GFR (MDRD) Non-Af 126, BUN/Creatinine Ratio 15.8, Glucose 714 H*, Calcium 8.4, b-Hydroxybutyric mmol/L 3.1 H 08/07/25 12:44: Sodium 127 L, Potassium 5.0, Chloride 93 L, Carbon Dioxide 20.7, Anion Gap 13, Phosphorus 3.6, Magnesium 2.1 08/07/25 15:05: POC Glucose 276 H 08/07/25 16:02: POC Glucose 264 H 08/07/25 16:52: POC Glucose 210 H 08/07/25 16:57: Sodium 138 08/07/25 16:57: Sodium Cancelled, Potassium 3.3 L 08/07/25 16:57: Potassium Cancelled, Chloride 106 08/07/25 16:57: Chloride Cancelled, Carbon Dioxide 17.8 L 08/07/25 16:57: Carbon Dioxide Cancelled, Anion Gap 15 08/07/25 16:57: Anion Gap Cancelled, Phosphorus 2.1 L, Magnesium 1.9 ABG Data ABG results: ABG 08/07/25 12:38 Specimen Type JAIDEN Sample Site Not entered VBG pH 7.52 H VBG pO2 107 H VBG HCO3 13 L VBG Total CO2 13 L VBG O2 Sat (Calc) 99 H VBG Base Excess -10 L POC Mix VBG pCO2 Pt Tmp 15.4 L* O2 Delivery Device Not entered Crit Call To/Read Back Yes Blood Gas Notified Whom bb Blood Gas Notified Time 12:40:04 Rhythm Strip Rhythm Strip: Sinus Tach Rate: 120 Ectopy: None Assessment & Plan Assessment/Plan (1) Rapid palpitations: PLAN: Plan 1. Diabetic ketoacidosis secondary to poorly controlled type 1 diabetes-suspect poor compliance with medication and diet-patient will be admitted to ICU, his insulin drip will be continued, labs will be monitored. #2 chronic cognitive impairment-exact etiology unclear, complicates care, management, recovery, and prognosis #3 poor compliance with medication and diet leading to uncontrolled type 1 diabetes-patient's last hemoglobin A1c in our system was in June of this year-it was 15.7. Complicates care, management, recovery, and prognosis Total clinical time spent by myself addressing the patient's medical issues, reviewing all of his data, and collaborating with patient's caregivers: 55 minutes Charges/Coding Visit Charges Inpatient E&M: 06702 Init Hosp L2
[2025-08-08] VITALS (11 sets, daily range): BP systolic 107–134; BP diastolic 69–109; PULSE 100–126; RESP 14–19; TEMP 36.6; O2SAT 95–98; BMI 18.1
[2025-08-08 05:30] LABS: Magnesium 1.4 mg/dL (1.5-2.2)
[2025-08-08 05:52] LABS: Anion Gap 9 (7-18); BUN 9 mg/dL (4-19); BUN/Creat Ratio 24.1 RATIO (10-20); Calcium,Total 6.0 mg/dL (7.6-11.0); Carbon Dioxide 17.6 mmol/L (20.0-29.0); Chloride 109 mmol/L (96-106); Glucose 260 mg/dL (70-99); Potassium 3.3 mmol/L (3.5-5.1)
[2025-08-08] MEDS: Calcium Gluconate IV 2 GM in 0.9% Normal Saline (100mL Bag) 100 ML IV (06:50)
[2025-08-08] MEDS: Insulin Glargine-YFGN 100 UNIT/ML Pen 20 UNIT SC (08:43)
[2025-08-08] MEDS: Potassium Chloride Oral Tablet 20 MEQ 40 MEQ PO (09:11)
[2025-08-08] MEDS: Magnesium Sulfate 2 GM in Dextrose 5%-Water (100mL Bag) 100 ML IV (09:11)
--- NOTE | 2025-08-08 09:58 | DCINST_ITS ---
Discharge Instructions DC O2, CPAP, BIPAP needs Home O2 Discharge instructions: No Dressing / Incision Discharge Activity: Return to Normal Activity Weight Bearing Status: Full weight bearing Follow Up Care Test Results: Test results from this visit will be discussed in further detail at your follow- up appointment, if applicable. Discharge Plan Admission Admit Date/Time: 08/07/25 14:19 Primary Reason for Your Visit: Diabetic ketoacidosis Attending Provider: Deangelo Farah Primary Care Provider: Kristy Crespo Discharge Orders/Prescriptions Prescriptions: Continued insulin lispro 100 UNIT/ML insulin pen See Rx Instructions SQ TIDCM Rx Instructions: SLIDING SCALE SQ 3 times daily with meals; +SLIDING SCALE ibuprofen [Advil] 200 mg tablet 200 mg PO TID (DME) insulin syringe-needle U-100 [TRUEplus Insulin] 0.5 mL 31 gauge x 5/16 syringe 1 syringe MISCELLANEOUS 4X/DAY metoprolol tartrate 25 mg tablet 25 mg PO BID PRN PRN (Reason: palpitations) Changed insulin glargine [Lantus Solostar U-100 Insulin] 100 unit/mL (3 mL) insulin pen 20 unit subcut BID Qty: 1 0RF Referrals / Follow Up: Kristy Crespo, [employer]AN[employer]PERATION EVALUATION MANAGER-C [Primary Care Provider, Family Practice] - Within 2 Weeks Disposition Disposition (needs filled in before D/C Order can be placed): Home, Self Care
--- NOTE | 2025-08-08 10:02 | DS.PCM_ITS ---
Providers Date of Admission: 08/07/25 Primary Care Physician: ANNIE Novoa, CABIN WORKER-C Reason For Visit: DKA Diagnosis Discharge Diagnosis (1) Rapid palpitations: Status: Acute Code(s): R00.2 - Palpitations Plan 1. Diabetic ketoacidosis secondary to poorly controlled type 1 diabetes-suspect poor compliance with medication and diet-patient will be admitted to ICU, his insulin drip will be continued, labs will be monitored. #2 chronic cognitive impairment-exact etiology unclear, complicates care, management, recovery, and prognosis #3 poor compliance with medication and diet leading to uncontrolled type 1 diabetes-patient's last hemoglobin A1c in our system was in June of this year-it was 15.7. Complicates care, management, recovery, and prognosis #4 hypomagnesemia #5 hypokalemia #6 hypocalcemia Total clinical time spent by myself addressing the patient's medical issues, reviewing all of his data, and collaborating with patient's caregivers: 55 minutes Medications at Discharge Home Medications insulin lispro 100 unit/mL subcutaneous pen See Rx Instructions SQ TIDCM short acting insulin 03/05/21 insulin syringe-needle U-100 0.5 mL 31 gauge x 5/16 (TRUEplus Insulin) 10/19/24 metoprolol tartrate 25 mg tablet 25 mg PO BID PRN PRN palpitations 06/09/25 ibuprofen 200 mg tablet (Advil) 200 mg PO TID 08/07/25 insulin glargine 100 unit/mL (3 mL) subcutaneous pen (Lantus Solostar U-100 Insulin) 20 unit (0.2 mL) subcut BID diabetes #1 mL 08/08/25 Hospital Course Operations None Procedures None Summary of Care Provided Minutes Spent on Discharge: 30 Hospital Course: This 30-year-old white male was seen in the emergency room at [facility] with chief complaint of palpitations and dyspnea. Workup in the emergency room showed his blood sugar to be elevated, labs indicated he was in DKA and patient was started on IV fluids and an insulin drip. Patient was admitted to ICU, within several hours his anion gap closed and he was able to be placed on a diet and basal insulin. On 08/08/2025, patient was seen and examined: On examination he appeared in good health and spirits. Vital signs as documented. Skin warm and dry and without overt rashes. Neck without JVD, neck was supple, trachea midline, thyroid was normal. Lungs clear bilaterally, normal air movement was noted. Heart exam notable for regular rhythm, normal sounds and absence of murmurs, rubs or gallops. Abdomen unremarkable and without evidence of organomegaly, masses, or abdominal aortic enlargement. Bowel sounds are present, abdomen is not distended. Extremities nonedematous, no cyanosis was noted, no clubbing was noted. Neuro: Cranial nerves II through XII are grossly intact, no focal motor deficits were noted, sensation to light touch and pinprick intact, motor exam 5/5 throughout. Psych: Patient is alert and oriented x3, he does not appear anxious or depressed, he does not appear agitated. Patient appears to be stable for discharge home on 08/08/2025 Weight / BMI Weight Weight: 60.9 kg Body Mass Index (BMI) 18.1 ABG / Lab / Microbiology Data 08/07/25 11:35 08/08/25 04:45 Laboratory: Laboratory Results - last 24 hr 08/07/25 11:35: WBC 10.9, RBC 5.21, Hgb 13.6, Hct 42.2, MCV 81.0, MCH 26.1 L, MCHC 32.2, RDW Std Deviation 40.4, RDW Coeff of Alec 13.8, Plt Count 304, MPV 11.1, Immature Gran % (Auto) 0.400, Neut % (Auto) 60.9, Lymph % (Auto) 29.4, [place] % (Auto) 6.7, Eos % (Auto) 2.0, Baso % (Auto) 0.6, Absolute Neuts (auto) 6.6, Absolute Lymphs (auto) 3.20, Nucleated RBC % 0, Sodium 123 L, Potassium 4.5, Chloride 88 L, Carbon Dioxide 14.6 L, Anion Gap 21 H, BUN 12, Creatinine 0.75, Estim Creat Clear Calc 132.18, Est GFR (MDRD) Non-Af 126, BUN/Creatinine Ratio 15.8, Glucose 714 H*, Calcium 8.4, b-Hydroxybutyric mmol/L 3.1 H 08/07/25 12:44: Sodium 127 L, Potassium 5.0, Chloride 93 L, Carbon Dioxide 20.7, Anion Gap 13, Phosphorus 3.6, Magnesium 2.1 08/07/25 15:05: POC Glucose 276 H 08/07/25 16:02: POC Glucose 264 H 08/07/25 16:52: POC Glucose 210 H 08/07/25 16:57: Sodium 138 08/07/25 16:57: Sodium Cancelled, Potassium 3.3 L 08/07/25 16:57: Potassium Cancelled, Chloride 106 08/07/25 16:57: Chloride Cancelled, Carbon Dioxide 17.8 L 08/07/25 16:57: Carbon Dioxide Cancelled, Anion Gap 15 08/07/25 16:57: Anion Gap Cancelled, Phosphorus 2.1 L, Magnesium 1.9 08/07/25 21:31: POC Glucose 303 H 08/08/25 04:45: Sodium 136, Potassium 3.3 L, Chloride 109 H, Carbon Dioxide 17.6 L, Anion Gap 9, BUN 9, Creatinine 0.38 L, Estim Creat Clear Calc 249.30, Est GFR (MDRD) Non-Af 155, BUN/Creatinine Ratio 24.1 H, Glucose 260 H, Calcium 6.0 L*, M agnesium 1.4 L 08/08/25 08:40: POC Glucose 305 H ABG: ABG 08/07/25 12:38 Specimen Type JAIDEN Sample Site Not entered VBG pH 7.52 H VBG pO2 107 H VBG HCO3 13 L VBG Total CO2 13 L VBG O2 Sat (Calc) 99 H VBG Base Excess -10 L POC Mix VBG pCO2 Pt Tmp 15.4 L* O2 Delivery Device Not entered Crit Call To/Read Back Yes Blood Gas Notified Whom bb Blood Gas Notified Time 12:40:04 D/C Instructions Weight Bearing Status: Full weight bearing DC O2, CPAP, BIPAP Needs Home O2 Discharge instructions: No Meaningful Use Info Meaningful Use Meaningful Use Diagnoses (Choose all that apply): None applicable Discharge Plan Admission Admit Date/Time: 08/07/25 14:19 Primary Reason for Your Visit: Diabetic ketoacidosis Attending Provider: Deangelo Farah Primary Care Provider: Kristy Crespo [facility] Discharge Orders/Prescriptions Prescriptions: Continued insulin lispro 100 UNIT/ML insulin pen See Rx Instructions SQ TIDCM Rx Instructions: SLIDING SCALE SQ 3 times daily with meals; +SLIDING SCALE ibuprofen [Advil] 200 mg tablet 200 mg PO TID (DME) insulin syringe-needle U-100 [TRUEplus Insulin] 0.5 mL 31 gauge x 5/16 syringe 1 syringe MISCELLANEOUS 4X/DAY metoprolol tartrate 25 mg tablet 25 mg PO BID PRN PRN (Reason: palpitations) Changed insulin glargine [Lantus Solostar U-100 Insulin] 100 unit/mL (3 mL) insulin pen 20 unit subcut BID Qty: 1 0RF Referrals / Follow Up: Kristy Crespo VSC, CABIN WORKER-C [Primary Care Provider, Family Practice] - Within 2 Weeks Disposition Disposition (needs filled in before D/C Order can be placed): Home, Self Care Charges/Coding Visit Charges Inpatient E&M: 49568 Disch Hosp
--- NOTE | 2025-08-08 11:50 | CASEMGMT ---
KEN KAHN Face to Face with patient for initial transition planning/care coordination assessment. KEN KAHN introduced self and role at [facility]. Patient lying in bed, alert and oriented. Patient willing to participate in assessment and is able to answer all questions appropriately. Care providers, pharmacy, and demographics verified. Strata: 3 PCP: Greg Crespo PLANER HAND Specialists: none, states he is looking for ship carpenter but having trouble finding one in-network with his insurance. KEN KAHN informed patient the his insurance website could assist in finding ship carpenter within his insurance network. Patient voiced understanding and states he can access information on his own. [facility] Insurance: [employer] Prescription Benefit: yes Living Will/HPOA: none LNOK: father Living Arrangements: Patient lives with father in a mobile home with 5 steps to enter. Patient is independent at home. Transportation: father DME/HHC: Patient states he has glucometer and all supplies. Patient states he is out of his Lantus and Humalog insulins, patient is not sure if he has refills available. KEN KAHN called [facility], patient has refills available, KEN KAHN requested refill be completed for insulins. Per pharmasicist refill went through his insurance without any issues and will be ready later today. Patient wishes to discharge home, denies need for home health at this time. KEN KAHN updated patient regardind refills available at [facility] and that refill was completed and ready for him to flower picker script, patient voiced understanding and appreciation. Patient states he has no further needs or concerns at this time. CM to follow for discharge planning needs that may arise. Disposition Plan: Patient to discharge home with family support and follow-up plans in place. Beth MANTILLA, RN, CM
== END 2025-08-08 12:44 | disposition home or self-care (01) ==
LOC: ED 13:19 → ICU 08-08 07:51
PROVIDERS: Admitting Provider Internal Medicine; Emergency Provider Emergency Medicine; Visit Provider Internal Medicine
DX: E10.10 Type 1 diabetes mellitus with ketoacidosis without coma (principal); Z79.4 Long term (current) use of insulin; E87.3 Alkalosis; I10 Essential (primary) hypertension; R00.2 Palpitations; Z83.3 Family history of diabetes mellitus; E87.6 Hypokalemia; R06.00 Dyspnea, unspecified; F17.220 Nicotine dependence, chewing tobacco, uncomplicated; J45.909 Unspecified asthma, uncomplicated; F17.210 Nicotine dependence, cigarettes, uncomplicated; F17.290 Nicotine dependence, other tobacco product, uncomplicated; R00.0 Tachycardia, unspecified; E83.42 Hypomagnesemia; E83.51 Hypocalcemia
CPT/HCPCS: J0612; 80048; 80051; 82010; 82803; 82962; 83735; 84100; 85025; 93005; 96361; 96365; 96366; 96367; 96375; 99221; 99284; A4216; G0378; J2405